=== PATIENT | female | born 1965 | race Caucasian/White ===

== ENCOUNTER 2023-08-13 17:56 | Emergency (ER) | payer MEDICAID, SELFPAY ==
[2023-08-13 18:00] VITALS: BP 199/89; PULSE 83; RESP 18; TEMP 37.1; O2SAT 98; BMI 39.1
[2023-08-13 18:07] VITALS: BP 170/78
--- NOTE | 2023-08-13 18:24 | ED_ITS ---
HPI - General Adult General Chief complaint: Upper Respiratory Infection Stated complaint: flu Time Seen by Provider: 08/13/23 18:19 Source: patient Mode of arrival: walk-in Limitations: no limitations History of Present Illness HPI narrative: Patient is a 58-year-old female who is presenting to the Emergency Room with chief complaint of 5 days of cough, congestion. Patient has taken no amwj-afn-unrcans medications in the past [address] Murillo's office, she was hoping that he called a antibiotic into the pharmacy for her. The nurse stated that he would call a prescription in for her. Patient went to the pharmacy, there is no medications at the pharmacy so she came to the Emergency Room hoping she will get prescriptions the help with her symptoms and a antibiotic. Patient was at a reunion last night. No recent traveling. No chest pain, no shortness of breath, no other acute complaints. No nausea, vomiting, diarrhea, no bowel or bladder changes. . All systems are negative except as noted/marked. All systems reviewed and otherwise negative. . Nurses note and vital signs reviewed and patient is not hypoxic. General: The patient appears well and in no apparent distress. Patient is resting comfortably on cart. Patient is not toxic, lethargic, or listless Skin: Warm, dry, no pallor noted. There is no rash noted. No petechiae, purpura. Head: Normocephalic, atraumatic. No tenderness to palpation to bilateral frontal or maxillary sinus. Eye: Normal conjunctiva, no drainage, EOMI. PERRL Ears, Nose, Mouth, and Throat: oral mucosa is moist. Nares patent. Mouth without vesicles. Cardiovascular: Regular Rate and Rhythm, no murmur, gallop, rub Respiratory: Patient is in no distress, no accessory muscle use, lungs are clear to auscultation, no wheezing, rales or rhonchi Back: non-tender, GI: soft, no tenderness Musculoskeletal: Patient has full range of motion of all of the extremities, no motor, sensory, or focal neurological deficits Neurological: A&O x3, normal speech Psychiatric: Cooperative Related Data Home Medications Medication Instructions Recorded Confirmed lorazepam 0.5 mg tablet 0.5 mg PO Q12H PRN sleep 08/13/23 08/13/23 metoprolol tartrate 100 mg tablet 100 mg PO Q12H 08/13/23 08/13/23 quetiapine 50 mg tablet 50 mg PO .qhs 08/13/23 08/13/23 Allergies Allergy/AdvReac Type Severity Reaction Status Date / Time No Known Drug Allergies Allergy Verified 08/13/23 18:00 PFSH PFS Social History Smoking status: Former smoker Exam Constitutional Vital Signs, click to edit/add: Last Vital Signs Temp 98.8 F 08/13/23 18:00 Pulse 83 08/13/23 18:00 Resp 18 08/13/23 18:00 BP 170/78 H 08/13/23 18:07 Pulse Ox 98 08/13/23 18:00 Course Vital Signs Vital signs: Vital Signs Temperature 98.8 F 08/13/23 18:00 Pulse Rate 83 08/13/23 18:00 Respiratory Rate 18 08/13/23 18:00 Blood Pressure 199/89 H 08/13/23 18:00 Pulse Oximetry 98 08/13/23 18:00 Temperature 98.8 F 08/13/23 18:00 Pulse Rate 83 08/13/23 18:00 Respiratory Rate 18 08/13/23 18:00 Blood Pressure 170/78 H 08/13/23 18:07 Pulse Oximetry 98 08/13/23 18:00 Medical Decision Making MDM Narrative Medical decision making narrative: Patient was hoping for antibiotic prescription. Patient was educated that she needs to have symptoms for over 10-14 days before [place] guide and evidence based medicine recommend using antibiotics. Patient was told his multiple wbbo-vol-iezmrks prescription she can use to help with her symptoms a dry up her sinuses. Patient says that DayQuil and NyQuil make her jittery. Patient was told that she can use Claritin, Zyrtec during the day and Benadryl nighttime. Patient was educated using Flonase. Patient was told if she is not having any improvement in her symptoms with taking rrdc-dkf-ruiieej medication by next Wednesday, she can follow-up with her PCP for further recommendation of treatment. Patient has had symptoms for 5 days and has taken no kftd-lny-drmedhf medications to help any of her symptoms. Patient understands this, antibiotic education done at bedside, no questions at discharge. Discharge Plan Discharge Chief Complaint: Upper Respiratory Infection Clinical Impression: Upper respiratory infection, Sinusitis Patient Disposition: Home, Self-Care Condition: Fair Prescriptions / Home Meds: No Action metoprolol tartrate 100 mg tablet 100 mg PO Q12H quetiapine 50 mg tablet 50 mg PO .qhs lorazepam 0.5 mg tablet 0.5 mg PO Q12H PRN (Reason: sleep) Additional Instructions: Use vhwm-lkx-zxojvlf Claritin or Zyrtec in the morning, use Benadryl nighttime to help with sleeping and antihistamine use. Use Flonase nasal spray. Use pchr-pnm-phzxoxi cough and cold medications. Follow-up with PCP on Wednesday if any other questions or concerns. Standard of care/Recommended antibiotic therapy is treating symptoms for the 1st 10-14 days before antibiotics are indicated for bronchitis, upper respiratory infection, or sinusitis. Stand Alone Forms: Portal Instructions Referrals: Carlito Murillo MD [Primary Care Provider] - 1 week
== END 2023-08-13 18:31 | disposition home or self-care (01) ==
PROVIDERS: Emergency Provider Emergency Medicine; PCP Family Medicine
DX: J06.9 Acute upper respiratory infection, unspecified (principal); J32.9 Chronic sinusitis, unspecified; Z79.899 Other long term (current) drug therapy; Z87.891 Personal history of nicotine dependence
CPT/HCPCS: 99281

== ENCOUNTER 2023-09-30 11:24 | Outpatient (OUT) | payer MEDICAID, SELFPAY ==
[2023-09-30 11:48] LABS: Basophils Percent Auto 0.8 % (0.2-2.0); Eosinophils Absolute Auto 0.2 10^3/uL (0.0-0.7); Eosinophils Percent Auto 3.4 % (0.9-7.0); Hematocrit 40.4 % (36.0-48.0); Hemoglobin 13.1 g/dL (12.0-16.0); Immature Granulocytes Abs Auto 0.01 10^3/uL (0.00-0.03); Immature Granulocytes Pct Auto 0.2 % (0.0-0.5); Lymphocytes Absolute Auto 1.6 10^3/uL (1.2-3.8); Lymphocytes Percent Auto 31.1 % (20.5-60.0); Mean Corpuscular HGB Conc 32.4 g/dL (29.9-35.2); Mean Corpuscular Hemoglobin 27.6 pg (26.7-34.0); Mean Corpuscular Volume 85.2 fL (81.0-99.0); Mean Platelet Volume 10.3 fL (9.5-13.5); Monocytes Absolute Auto 0.3 10^3/uL (0.3-0.8); Monocytes Percent Auto 6.3 % (1.7-12.0); Neutrophils Absolute Auto 3.1 10^3/uL (1.4-6.5); Neutrophils Percent Auto 58.2 % (43.0-75.0); Platelet Count 226 10^3/uL (150-450); Red Blood Count 4.74 10^6/uL (4.20-5.40); White Blood Count 5.2 10^3/uL (4.0-11.0)
[2023-09-30 12:26] LABS: Estimated Average Glucose 137 mg/dL; Glycohemoglobin A1C 6.4 % (4.5-6.2)
[2023-09-30 12:45] LABS: Alanine Aminotransferase 63 U/L (14-59); Albumin Level 3.5 g/dL (3.4-5.0); Alkaline Phosphatase 86 U/L (46-116); Anion Gap 15.4; Aspartate Amino Transferase 30 U/L (15-37); Bilirubin Total 0.4 mg/dL (0.2-1.0); Calcium 8.4 mg/dL (8.5-10.1); Carbon Dioxide 25.9 mmol/L (21.0-32.0); Chloride 104 mmol/L (98-107); Chol HDL Ratio 4.1; Cholesterol 177 mg/dL (<=200); Estimated GFR (African America >60 (>=60); Estimated GFR (Non-African Ame 51 (>=60); Free T3 2.69 pg/mL (2.18-3.98); Globulin 3.6 g/dL; Glucose 132 mg/dL (74-106); HDL Cholesterol 43 mg/dL (40-60); LDL Cholesterol Calculated 124.2 mg/dL; Potassium 3.3 mmol/L (3.5-5.1); Sodium 142 mmol/L (136-145); Thyroid Stimulating Hormone 2.185 uIU/mL (0.358-3.740); Total Protein 7.1 g/dL (6.4-8.2); Triglycerides 49 mg/dL (<=150); VLDL CHOLESTEROL 9.8 mg/dL
[2023-10-01 10:12] LABS: Insulin 30.1 uIU/mL (2.6-24.9)
== END 2023-09-30 11:25 | disposition home or self-care (01) ==
LOC: LAB 11:26
PROVIDERS: PCP Family Medicine; Visit Provider Family Medicine
DX: Z00.00 Encounter for general adult medical examination without abnormal findings (principal)
CPT/HCPCS: 36415; 80053; 80061; 83036; 83525; 84436; 84443; 84481; 85025

== ENCOUNTER 2024-04-21 18:49 | Inpatient (IN) | payer MEDICAID, SELFPAY ==
[2024-04-21] VITALS (39 sets, daily range): BP systolic 175–234; BP diastolic 70–109; PULSE 51–90; TEMP 36.5–36.9; O2SAT 96–98; BMI 38.1
--- OUTSIDE RECORDS SUMMARY | 2024-04-21 19:16 | XMS_ITS | CCD ---
Author Organization [facility] Care Team Providers Care Environmental Director Name Role Phone Kendra Murillo Primary Care Physician Umm MARTÍNEZ Attending Unavailable NILL, Umm Michael Attending Unavailable MARKER ., DR DEVINE Attending Unavailable MARKER ., DR DEVINE Consulting Unavailable MARKER ., DR DEVINE Admitting Unavailable HOY ., DR GARDNER Primary Care Unavailable YANDELUMM Consulting Unavailable NILL ., DR SALOMON Admitting Unavailable HOY ., DR GARDNER Primary Care Unavailable NILL ., DR SALOMON Attending Unavailable NILL ., DR SALOMON Consulting Unavailable NILL ., DR SALOMON Admitting Unavailable HOY ., DR GARDNER Primary Care Unavailable NILL ., DR SALOMON Attending Unavailable NILL ., DR SALOMON Consulting Unavailable DIPTI, GUILLE Consulting Unavailable MICHAEL II, BASILIA Consulting Unavailable HOY ., DR GARDNER Admitting Unavailable HOY ., DR GARDNER Attending Unavailable HOY ., DR GARDNER Primary Care Unavailable HOY ., DR GARDNER Admitting Unavailable HOY ., DR GARDNER Attending Unavailable HOY ., DR GARDNER Consulting Unavailable HOY ., DR GARDNER Primary Care Unavailable HOY ., DR GARDNER Admitting Unavailable HOY ., DR GARDNER Attending Unavailable HOY ., DR GARDNER Consulting Unavailable HOY ., DR GARDNER Primary Care Unavailable HOY ., DR GARDNER Admitting Unavailable HOY ., DR GARDNER Attending Unavailable HOY ., DR GARDNER Consulting Unavailable HOY ., DR GARDNER Primary Care Unavailable SWITCHBACK, DR ADEILA Medrano Consulting Unavailable Allergies Allergy Classification Reported Allergen(s) Allergy Type Date of Onset Reaction(s) Facility (1 source) No Known Medication Allergies; 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: [No Known Medication Allergies] Propensity to adverse reactions (disorder) [facility] Medications Current Medications Medication Drug Class(es) Dates Sig (Normalized) Sig (Original) amitriptyline hydrochloride 100 mg oral tablet (2 sources) Tricyclic Antidepressant Start: 09-30-2022 take 1 tablet by mouth once daily at bedtime amitriptyline 100 mg oral tablet 100 mg = 1 tab(s), Oral, Once a day (at bedtime), Refills(s) 0 Start Date: 09/30/22 Status: Ordered aspirin 325 mg delayed release oral tablet (2 sources) Platelet Aggregation Inhibitor, Nonsteroidal Anti-inflammatory Drug Start: 09-30-2022 take 1 tablet by mouth once daily aspirin 325 mg Oral EC Tab 325 mg = 1 tab(s), Oral, Daily, Refills(s) 0 Start Date: 09/30/22 Status: Ordered atorvastatin 40 mg oral tablet (2 sources) HMG-CoA Reductase Inhibitor Start: 10-06-2022 take 1 tablet by mouth once daily atorvastatin 40 mg Tab 40 mg = 1 tab(s), Oral, Daily, Refills(s) 0 Start Date: 10/06/22 Status: Ordered furosemide 20 mg oral tablet (2 sources) Loop Diuretic Start: 10-06-2022 take 1 tablet by mouth once daily furosemide 20 mg Tab 20 mg = 1 tab(s), Oral, Daily, Refills(s) 0 Start Date: 10/06/22 Status: Ordered hydrOXYzine hydrochloride 25 mg oral tablet (2 sources) Antihistamine Start: 09-30-2022 take 1 tablet by mouth four times daily hydrOXYzine hydrochloride 25 mg Tab 25 mg = 1 tab(s), Oral, QID, Refills(s) 0 Start Date: 09/30/22 Status: Ordered metoprolol tartrate 100 mg oral tablet (2 sources) beta-Adrenergic Tammie Start: 08-02-2019 take 1 mg by mouth twice daily Lopressor 100 mg Tab mg tab(s), Oral, BID, Refills(s) 0 Start Date: 08/02/19 Status: Ordered Problems Active Problems Problem Classification Problem Date Documented Da te Episodic/Chronic Anxiety disorders (7 sources) Anxiety; 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: [Panic disorder] Onset: 09-28-2022 08-02-2019 Chronic Complication of device; implant or graft (2 sources) Retained ureteric stent 08-29-2019 Episodic Coronary atherosclerosis and other heart disease (3 sources) Coronary arteriosclerosis; 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: [Atherosclerotic heart disease of [place] coronary artery without angina pectoris] Onset: 11-26-2022 09-30-2022 Chronic Disorders of lipid metabolism (1 source) Hyperlipidemia, unspecified; 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: [HYPERLIPIDEMIA UNSPECIFIED] Onset: 11-26-2022 Chronic Essential hypertension (3 sources) Hypertensive disorder; 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: [Essential (primary) hypertension] Onset: 11-26-2022 08-02-2019 Chronic Genitourinary symptoms and ill-defined conditions (6 sources) Increased frequency of urination; 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: [Nocturia] 08-02-2019 Episodic Headache; including migraine (2 sources) Migraine 08-02-2019 Chronic Heart valve disorders (2 sources) Heart murmur 10-30-2020 Episodic Hemorrhoids (2 sources) Hemorrhoids 08-02-2019 Episodic Inflammation; infection of eye (except that caused by tuberculosis or sexually transmitteddisease) (2 sources) Allergic conjunctivitis 09-30-2022 Episodic Mood disorders (2 sources) Depressive disorder 09-30-2022 Chronic Neoplasms of unspecified nature or uncertain behavior (2 sources) Neoplasm of uncertain behavior of skin of chest 07-02-2021 Episodic Other and ill-defined heart disease (2 sources) Left ventricular hypertrophy 09-30-2022 Chronic Other diseases of kidney and ureters (2 sources) Hydronephrosis 08-02-2019 Episodic Other gastrointestinal disorders (2 sources) Adrenal mass 12-20-2019 Episodic Other nervous system disorders (2 sources) Paresthesia 08-02-2019 Episodic Other nutritional; endocrine; and metabolic disorders (2 sources) Body mass index 30+ - obesity 07-02-2021 Chronic Other skin disorders (2 sources) Inflamed seborrheic keratosis 10-31-2020 Episodic Residual codes; unclassified (2 sources) Obstructive sleep apnea syndrome 10-30-2020 Chronic Residual codes; unclassified (1 source) Obstructive sleep apnea (adult) (pediatric); 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: [OBSTRUCTIVE SLEEP APNEA] Onset: 11-26-2022 Chronic Substance-related disorders (2 sources) Nicotine dependence 12-20-2019 Chronic Transient cerebral ischemia (2 sources) Transient cerebral ischemia 10-30-2020 Chronic Unclassified (2 sources) Injury of left ureter 12-20-2019 Unclassified (1 source) CONTACT W/AND (SUSP) EXPOS COVID-19; 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: [CONTACT W/AND (SUSP) EXPOS COVID-19] Onset: 11-26-2022 Past or Other Problems Problem Classification Problem Date Documented Da te Episodic/Chronic Calculus of urinary tract (5 sources) History of calculus of kidney; 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: [Kidney stone] Onset: 11-26-2022 12-20-2019 Episodic Other aftercare (1 source) nursing home (current) use of aspirin; 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: [ALF CURRENT USE OF ASPIRIN] Onset: 11-26-2022 Episodic Other aftercare (1 source) Other retirement (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 therapy; 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: [OTH ALF CURRENT DRUG THERAPY] Onset: 11-26-2022 Episodic Other circulatory disease (1 source) Personal history of transient ischemic attack (TIA), and cerebral infarction without residual deficits; 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: [PERS HX TIA AND CI NO RESID DEFICIT] Onset: 11-26-2022 Episodic Other connective tissue disease (3 sources) Other specified soft tissue disorders; 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: [OTHER SPEC SOFT TISSUE DISORDERS] Onset: 09-24-2022 Episodic Other screening for suspected conditions (not mental disorders or infectious disease) (4 sources) Encounter for screening for malignant neoplasm of colon; 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: [ENC SCREEN MALIG NEOPLASM COLON] Onset: 11-25-2022 Episodic Other skin disorders (1 source) Other seborrheic keratosis; 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: [OTHER SEBORRHEIC KERATOSIS] Onset: 11-26-2022 Episodic Residual codes; unclassified (1 source) Acquired absence of other specified parts of digestive tract; 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: [ACQ ABSENCE OTH PART DIGESTV TRACT] Onset: 11-26-2022 Episodic Residual codes; unclassified (1 source) Acquired absence of both cervix and uterus; 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: [ACQUIRED ABSENCE BOTH CERVIX AND UTERUS] Onset: 11-26-2022 Episodic Residual codes; unclassified (1 source) Family history of malignant neoplasm of digestive organs; 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: [FAM HX MALIG NEOPLASM DIGESTIV ORGN] Onset: 11-26-2022 Episodic Residual codes; unclassified (4 sources) Localized edema; 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: [LOCALIZED EDEMA] Onset: 10-02-2022 Episodic Residual codes; unclassified (1 source) Edema, unspecified; 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: [EDEMA UNSPECIFIED] Onset: 09-28-2022 Episodic Screening and history of mental health and substance abuse codes (1 source) Personal history of nicotine dependence; 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: [PERSONAL HISTORY OF NICOTINE DEPEND] Onset: 11-26-2022 Episodic Unclassified (2 sources) Drug therapy finding 09-30-2022 Results Test Name Value Interpretation Reference Range Facility Outside Colonoscopyon 2022 Outside Colonoscopy [id number] .00CD:127 Normal [facility] Reminderson 11-27-2022 Reminders - From: Na Hayes LPN To: N - Clinical; Sent: 11/27/2022 12:46:10 EST Show up: 10/25/2032 07:00:00 EST Subject: colonoscopy recall Due Date/Time: 11/25/2032 07:00:00 EST Reminder/Recall Patient is due for screening colonoscopy 11/25/2032. Normal [facility] Lab Reportson 11-24-2022 Lab Reports [id number] .00CD:127 Normal [facility] Covid-19 PCR ([facility])on 10-24 SARS-CoV-2 (COVID-19) RNA BECK+probe Ql (Unsp spec) Not detected Normal NOT DETECTED [facility] Comment on above: Result Comment: This test is not yet approved or cleared by the [place] FDA. When there are no FDA-approved or cleared tests available, and other criteria are met, FDA can make tests available under an emergency access mechanism called an Emergency Use Authorization (EUA). The EUA for this test is supported by the Oler[employer]urist of Health and Human Service's (HHS's) declaration that circumstances exist to justify the emergency use of in vitro diagnostics for the detection and/or diagnosis of the virus that causes COVID-19. This EUA will remain in effect (meaning this test can be used) for the duration of the COVID-19 declaration justifying emergency of IVDs, unless it is terminated or revoked by FDA (after which the test may no longer be used). When diagnostic testing is negative, the possibility of a false negative should be considered in the context of a patient's recent exposures and the presence of clinical signs and symptoms consistent with SARS-CoV-2. Performed By: #### [facility] [place] #### [facility] [address] [address] [address] Rich Cutler Consent for Procedure/Surger yon 10-07-2022 Consent for Procedure/Surgery [id number] .00CD:127 Normal [facility] Ambulatory Visit Summaryon 1 12-06-2021 Ambulatory Visit Summary MILAN RASMUSSEN :1965 Visit Date:10/06/2022 Ambulatory Visit Instructions Your Care Team Attending Physician - DIPESH BUCKNER, Umm Michael Primary Care Physician - Lidia BUCKNER, Kendra This Is Your Medications List Contact prescribing physician if questions or concerns amitriptyline (amitriptyline 100 mg oral tablet) aspirin (aspirin 325 mg Oral EC Tab) atorvastatin (atorvastatin 40 mg Tab) furosemide (furosemide 20 mg Tab) hydrOXYzine (hydrOXYzine hydrochloride 25 mg Tab) metoprolol (Lopressor 100 mg Tab) Procedures Performed Cystoscopic removal of ureteric stent (08/29/2019), Bilateral tubal ligation, Catheterization of left heart, Cholecystectomy, Cystoscopic insertion of ureteric stent, Dilatation and curettage, Vaginal hysterectomy. Discharge Vitals Heart Rate (Peripheral) 72 Respiratory Rate 16 Blood Pressure 126/86 Height 157.4 cm Height 62 in Weight 98 kg Weight 215.6 lb BMI 39.56 Medications What How Much When Instructions Unchanged amitriptyline (amitriptyline 100 mg oral tablet) 1 Tablets By Mouth Once a day (at bedtime) Contact prescribing physician if questions or concerns Unchanged aspirin (aspirin 325 mg Oral EC Tab) 1 Tablets By Mouth Every day Contact prescribing physician if questions or concerns Unchanged atorvastatin (atorvastatin 40 mg Tab) 1 Tablets By Mouth Every day Contact prescribing physician if questions or concerns Unchanged furosemide (furosemide 20 mg Tab) 1 Tablets By Mouth Every day Contact prescribing physician if questions or concerns Unchanged hydrOXYzine (hydrOXYzine hydrochloride 25 mg Tab) 1 Tablets By Mouth 4 times a day Contact prescribing physician if questions or concerns Unchanged metoprolol (Lopressor 100 mg Tab) By Mouth 2 times a day Contact prescribing physician if questions or concerns Allergies No Known Allergies No Known Medication Allergies Problems Ongoing - Any problem that you are currently receiving treatment for. Adrenal mass Anxiety BMI 33.0-33.9,adult CAD (coronary artery disease) Depression Hemorrhoids History of kidney stones Hydronephrosis with obstructing calculus Hypertension Inflamed seborrheic keratosis Left ureteral injury LVH (left ventricular hypertrophy) Migraine Murmur Neoplasm of uncertain behavior of skin of chest Nocturia SURESH (obstructive sleep apnea) Panic disorder Paresthesia Retained ureteral stent Smoker TIA (transient ischemic attack) Urinary frequency Urinary urgency Historical - Any problem that you are no longer receiving treatment for. Allergic conjunctivitis Anticoagulated Kidney stones Normal [facility] VC VENOUS REFLUX NINO LMTon 1 12-02-2021 VC VENOUS REFLUX NINO LMT Patient: MILAN RASMUSSEN Exam Date: 10/02/2022 : 1965 Gender:F Ordering : DR KENDRA MURILLO . Admission #: [id number] Family : Order #: [id number] CLICK HERE TO VIEW EXAM RADIOLOGY REPORT PROCEDURE: VEIN CENTER ULTRASOUND VENOUS REFLUX BILATERAL LIMTED COMPARISON: None. INDICATIONS: Localized edema TECHNIQUE: Duplex imaging of the lower extremity to assess the deep and superficial venous system for the presence of deep or superficial venous incompetence and to document the location and severity of disease. The study includes evaluation of the great saphenous vein (GSV), anterior accessory saphenous vein (AASV) and small saphenous vein (SSV). Patient scanned in reverse Trendelenburg and standing. FINDINGS: RIGHT LOWER EXTREMITY: Saphenofemoral Junction Reflux: Yes 11.4mm 0.6 sec GSV: Diam (mm) Reflux/ Time (sec) Proximal Thigh 8.2 Yes 0.3 Mid Thigh 5.6 Yes 1.0 Distal Thigh 5.6 Yes 1.3 Prox Calf 3.8 Yes 0.5 Mid Calf 3.2 No Saphenopopliteal Junction Reflux: 4.9mm No SSV: Proximal Calf 3.5 No Mid Calf N/A AASV: Proximal Thigh 5.0 No Mid Thigh 2.9 No Distal Thigh Thrombi: No acute or chronic thrombus visualized Compressibility: Normal Flow: Normal Preforator: Dist/med calf 4.6mm with 0s reflux. Tech Note: Incompetent SFJ and GSV. Patent varicose vein mid/med calf 3.7mm with 0.5s reflux. Patent varicose vein prox/post calf 2.2mm with 0s reflux. LEFT LOWER EXTREMITY: Saphenofemoral Junction Reflux: Yes 10.5 mm 1.4 sec GSV: Diam (mm) Reflux/Time (sec) Proximal Thigh 6.3 Yes 0.7 Mid Thigh 5.2 Yes 2.0 Distal Thigh 5.6 Yes 1.0 Prox Calf 4.7 No Mid Calf 3.0 No Saphenopopliteal Junction Relux: 5.7 mm Yes 1.3 SSV: Proximal Calf 4.4 No Mid Calf 3.4 No AASV: Proximal Thigh 4.6 Yes 0.6 Mid Thigh 4.1 Yes 0.8 Distal Thigh Thrombi: No acute or chronic thrombus visualized Compressibility: Normal Flow: Normal Shirt Marker: Dist/med calf 3.3mm with 0s reflux. Tech Note: Incompetent SFJ and GSV. Patent varicose vein mid/med calf 2.9mm with 0s reflux. Patent varicose vein prox/post calf 3.8mm with 0s reflux. Patent varicose vein dist/med thigh 3.8mm with 2.0s reflux. CONCLUSION: 1. Mild right and [id number] left great saphenous vein venous insufficiency with dilatation 2. Left saphenous popliteal junction reflux 3. Mild left anterior accessory saphenous vein venous insufficiency without dilatation 4. Small bilateral incompetent varicose veins Dictated by: Adelia Lezama MD on 10/02/2022 at 13:36 Approved by: Adelia Lezama MD on 10/02/2022 at 13:52 Normal [facility] ECHOCARDIO M/2D COMPLETEon 1 11-30-2021 ECHOCARDIO M/2D COMPLETE Patient: MILAN RASMUSSEN Exam Date: 09/30/2022 : 1965 Gender:F Ordering : DR KENDRA MURILLO . Admission #: [id number] Family : Order #: [id number] CLICK HERE TO VIEW EXAM ECHOCARDIOGRAM REPORT PROCEDURE: CARDIO PULMONARY ECHOCARDIO M/2D COMP INDICATIONS: Edema. hypertension, former smoker COMPARISON: None. DESCRIPTION: COMPLETE ECHOCARDIOGRAM Real-time transthoracic echocardiography with 2D, M-mode, spectral and color flow Doppler performed. QUALITY: Technical quality was adequate. 63 215# BP 194/82 Recommend imaging agent for better visualization of left ventricle. LEFT VENTRICLE: Normal chamber size. Global left ventricular systolic function is normal. Moderate left ventricular hypertrophy with severe proximal septal thickness (1.8 cm). No regional wall motion abnormalities. Mild ventricular outflow obstruction with a maximum gradient of 23 mmHg. LV EF: Hyperdynamic left ventricular ejection fraction, (70-75%). DIASTOLIC: Grade I diastolic dysfunction. ATRIAL SEPTUM: LEFT ATRIUM: Normal chamber size. RIGHT ATRIUM: Mild dilatation. RIGHT VENTRICLE: Normal chamber size. Normal right ventricular systolic function. TRICUSPID VALVE: Normal mobility and thickness. No stenosis with trivial regurgitation. Doppler studies reveal mildly (35-45) elevated right sided pressures. RVSP is 43 mmHg MITRAL VALVE: Normal mobility and thickness. No evidence of mitral valve stenosis. There is no mitral annular calcification. Mild mitral regurgitation. AORTIC VALVE: Normal trileaflet appearance. No visible sclerosis. Normal leaflet mobility. No evidence of aortic valve stenosis. No aortic regurgitation. AORTIC ROOT: Normal diameter and appearance. PULMONIC VALVE: Normal thickness and mobility. No stenosis. Trivial regurgitation. PERICARDIUM: No evidence of pericardial effusion. IVC: Collapses with inspirations. PLEURA: CONCLUSION: 1. Left ventricular hypertrophy with increased upper septal thickness measuring up to 1.8 cm. 2. Hyperdynamic left ventricular systolic function with an ejection fraction of 70 to 75%. There appears to be evidence of dynamic outflow tract obstruction with a late peaking gradient of 23 mmHg with Valsalva maneuver. 3. Normal right ventricular size and systolic function. 4. Mild diastolic dysfunction. 5. Mild mitral regurgitation. 6. Mildly elevated right-sided pressures. 7. The phenotype is suggestive of possible hypertrophic cardiomyopathy. 8. Technically limited study with poor sound transmission. Additional cardiac imaging such as cardiac MRI is recommended for further characterization. Adult Echocardiography Procedure Report Left Ventricle LVEDD (3.7 - 5.6 cm): 4.03 cm LVESD (2.2 - 4.0 cm): 2.62 cm LVIVS thickness (0.6 - 1.2 cm): 1.80 cm LVPW thickness (0.5 - 1.0 cm): 1.27 cm e': 0.05 m/s E - e': 9.56 LVOT Diameter 2.00 cm Left Ventricular Ejection Fraction: 70-75 % Left Atrium LA Volume Index (2D A2C): 58.19 ml, 58.19 ml Left Atrium Systolic Dimension: 4.38 cm Mitral Valve MV E to A Ratio: 0.79 Mitral Valve A-Wave Peak Velocity: 0.62 m/s Mitral Valve E-Wave Peak Velocity: 0.49 m/s Right Ventricle Aorta AO Root Diam: 3.54 cm Aortic Valve Peak Velocity(Antegrade Flow): 1.46 m/s Peak Gradient(Antegrade Flow): 8.58 mm[Hg] Tricuspid Valve Peak Velocity (Regurgitant Flow): 2.59 m/s, 3.17 m/s Peak Velocity: 0.49 m/s Pulmonic Valve Peak Velocity: 1.09 m/s, 1.05 m/s Peak Gradient: 4.71 mm[Hg], 4.38 mm[Hg] Right Atrium Right Atrium Systolic Pressure: 37.76 ml, 15.88 ml, 59.64 ml Dictated by: Rafa Spence M.D. on 09/30/2022 at 18:28 Approved by: Rafa Spence M.D. on 09/30/2022 at 18:37 Normal [facility] BNPon 09-24-2022 Natriuretic peptide B (Bld) [Mass/Vol] 501.0 pg/mL Normal <=900.0 [facility] Comment on above: Performed By: #### C VDTB #### [facility] [address] [place] [address] Dr. Rich Cutler CBC AUTO DIFFon 09-24-2022 BASO # 0.1 103/ul Normal 0.0-0.1 [facility] Comment on above: Performed By: #### C [facility] #### [facility] [address] [place] [address] Dr. Rich Cutler Basophils/100 WBC (Bld) 0.8 % Normal 0.2-2.0 [facility] Comment on above: Performed By: #### C [facility] #### [facility] [address] [place] [address] Dr. Rich Cutler EO # 0.3 103/ul Normal 0.0-0.7 [facility] Comment on above: Performed By: #### C [facility] #### [facility] [address] [place] [address] Dr. Rich Cutler Eosinophils/100 WBC (Bld) 3.4 % Normal 0.9-7.0 [facility] Comment on above: Performed By: #### C [facility] #### [facility] [address] [place] [address] Dr. Rich Cutler Erythrocyte distribution width (RBC) [Ratio] 13.3 % Normal 11.0-15.0 [facility] Comment on above: Performed By: #### C [facility] #### [facility] [address] [place] [address] Dr. Rich Cutler Hematocrit (Bld) [Volume fraction] 40.5 % Normal 36.0-48.0 [facility] Comment on above: Performed By: #### C [facility] #### [facility] [address] [place] [address] Dr. Rich Cutler Hemoglobin (Bld) [Mass/Vol] 13.1 g/dL Normal 12.0-16.0 [facility] Comment on above: Performed By: #### C [facility] #### [facility] [address] [place] [address] Dr. Rich Cutler IG # 0.02 10e3/ul Normal 0.00-0.03 [facility] Comment on above: Performed By: #### C [facility]DT[facility] #### [facility] [address] [place] [address] Dr. Rich Cutler IG % 0.3 % Normal 0.0-0.5 [facility] Comment on above: Performed By: #### C VDT[facility] #### [facility] [address] [place] [address] Dr. Rich Cutler LYMPH # 2.7 103/ul Normal 1.2-3.8 [facility] Comment on above: Performed By: #### C [facility] #### [facility] [address] [place] [address] Dr. Rich Cutler Lymphocytes/100 WBC (Bld) 35.4 % Normal 20.5-60.0 [facility] Comment on above: Performed By: #### C VDT[facility] #### [facility] [address] [place] [address] Dr. Rich Cutler MANUAL DIFF REQ NO Normal [facility] Comment on above: Performed By: #### C VDT[facility] #### [facility] [address] [place] [address] Dr. Rich Cutler MCH (RBC) [Entitic mass] 28.2 pg Normal 26.7-34.0 [facility] Comment on above: Performed By: #### C [facility]DT[facility] #### [facility] [address] [place] [address] Dr. Rich Cutler MCHC (RBC) [Mass/Vol] 32.3 g/dL Normal 29.9-35.2 [facility] Comment on above: Performed By: #### C [facility] #### [facility] [address] [place] [address] Dr. Rich Cutler MCV (RBC) [Entitic vol] 87.3 fL Normal 81.0-99.0 [facility] Comment on above: Performed By: #### C [facility] #### [facility] [address] [place] [address] Dr. Rich Cutler MONO # 0.5 103/ul Normal 0.3-0.8 [facility] Comment on above: Performed By: #### C [facility] #### [facility] [address] [place] [address] Dr. Rich Cutler Monocytes/100 WBC (Bld) 6.5 % Normal 1.7-12.0 [facility] Comment on above: Performed By: #### C [facility] #### [facility] [address] [place] [address] Dr. Rich Cutler NEUT # 4.1 103/ul Normal 1.4-6.5 [facility] Comment on above: Performed By: #### C [facility] #### [facility] [address] [place] [address] Dr. Rich Cutler Neutrophils/100 WBC (Bld) 53.6 % Normal 43.0-75.0 [facility] Comment on above: Performed By: #### C V[facility] #### [facility] [address] [place] [address] Dr. Rich Cutler Platelet mean volume (Bld) [Entitic vol] 10.3 fL Normal 9.5-13.5 [facility] Comment on above: Performed By: #### C VDT[facility] #### [facility] [address] [place] [address] Dr. Rich Cutler PLT 283 103/ul Normal 150-450 [facility] Comment on above: Performed By: #### C VDTBH #### [facility] [address] [place] [address] Dr. Rich Cutler RBC 4.64 106/ul Normal 4.20-5.40 [facility] Comment on above: Performed By: #### C VDTBH #### [facility] [address] [place] [address] Dr. Rich Cutler WBC 7.6 103/ul Normal 4.0-11.0 [facility] Comment on above: Performed By: #### C VDTBH #### [facility] [address] [place] [address] Dr. Rich Cutler INSULINon 09-24-2022 Insulin 15.1 uIU/mL Normal 2.6-24.9 [facility] Comment on above: Performed By: #### C VDTBH #### [facility] [address] [place] [address] Dr. Rich Cutler PROF 14(COMP METB)on 022 Albumin [Mass/Vol] 3.5 g/dL Normal 3.4-5.0 [facility] Comment on above: Performed By: #### C VDTBH #### [facility] [address] [place] [address] Dr. Rich Cutler Albumin/Globulin [Mass ratio] 1.0 {ratio} Normal [facility] Comment on above: Performed By: #### C VDTBH #### [facility] [address] [place] [address] Dr. Rich Cutler ALP [Catalytic activity/Vol] 91 U/L Normal 46-116 [facility] Comment on above: Performed By: #### C VDTBH #### [facility] [address] [place] [address] Dr. Rich Cutler ALT [Catalytic activity/Vol] 47 U/L Normal 14-59 [facility] Comment on above: Performed By: #### C VDTBH #### [facility] [address] [place] [address] Dr. Rich Cutler Anion gap [Moles/Vol] 11.7 mmol/L Normal [facility] Comment on above: Performed By: #### C VDTBH #### [facility] [address] [place] [address] Dr. Rich Cutler AST [Catalytic activity/Vol] 24 U/L Normal 15-37 [facility] Comment on above: Performed By: #### C VDTBH #### [facility] [address] [place] [address] Dr. Rich Cutler Bilirubin [Mass/Vol] 0.2 mg/dL Normal 0.2-1.0 [facility] Comment on above: Performed By: #### C VDTBH #### [facility] [address] [place] [address] Dr. Rich Cutler Calcium [Mass/Vol] 8.9 mg/dL Normal 8.5-10.1 [facility] Comment on above: Performed By: #### C VDTBH #### [facility] [address] [place] [address] Dr. Rich Cutler Chloride [Moles/Vol] 105 mmol/L Normal 98-107 [facility] Comment on above: Performed By: #### C VDTBH #### [facility] [address] [place] [address] Dr. Rich Cutler CO2 [Moles/Vol] 28.1 mmol/L Normal 21.0-32.0 [facility] Comment on above: Performed By: #### C VDTBH #### [facility] [address] [place] [address] Dr. Rich Cutler Creatinine [Mass/Vol] 1.13 mg/dL Critically high 0.55-1.02 [facility] Comment on above: Performed By: #### C VDTBH #### [facility] [address] [place] [address] Dr. Rich Cutler EGFR-AF MALDIVIAN 60 mL/min/1.73m2 Normal >=60 [facility] Comment on above: Performed By: #### C VDTBH #### [facility] [address] [address] [address] Rich Cutler EGFR-NON AF MALDIVIAN 49 mL/min/1.73m2 Critically low >=60 [facility] Comment on above: Performed By: #### C VDTBH #### [facility] [address] [address] [address] Rich Cutler Globulin (S) [Mass/Vol] 3.5 g/dL Normal [facility] Comment on above: Performed By: #### C VDTBH #### [facility] [address] [place] [address] Dr. Rich Cutler Glucose [Mass/Vol] 119 mg/dL Critically high 74-106 [facility] Comment on above: Performed By: #### C VDTBH #### [facility] [address] [address] [address] Rich Cutler Potassium [Moles/Vol] 3.8 mmol/L Normal 3.5-5.1 [facility] Comment on above: Performed By: #### C VDTBH #### [facility] [address] [place] [address] Dr. Rich Cutler Protein [Mass/Vol] 7.0 g/dL Normal 6.4-8.2 [facility] Comment on above: Performed By: #### C VDTBH #### [facility] [address] [place] [address] Dr. Rich Cutler Sodium [Moles/Vol] 141 mmol/L Normal 136-145 [facility] Comment on above: Performed By: #### C VDTBH #### [facility] [address] [place] [address] Dr. Rich Cutler Urea nitrogen [Mass/Vol] 16.0 mg/dL Normal 7.0-18.0 [facility] Comment on above: Performed By: #### C VDTBH #### [facility] [address] [place] [address] Dr. Rich Cutler Urea nitrogen/Creatinine [Mass ratio] 14.2 mg/mg Normal [facility] Comment on above: Performed By: #### C VDTBH #### [facility] [address] [place] [address] Dr. Rich Cutler TROPONIN, HIGH SENSITIVITYon 09-24-2022 HSTROP 10.6 pg/mL Normal 4.0-51.3 [facility] Comment on above: Result Comment: CUT- OFF POINTS HAVE BEEN ESTABLISHED BASED ON THE FOURTH UNIVERSAL DEFINITIONS OF MYOCARDIAL INFARCTION. THE UPPER REFERENCE LIMIT (URL) OF TROPONIN, DEFINED THE 99TH PERCENTILE OF cTnI DISTRIBUTION IN A REFERENCE POPULATION, HAS BEEN CONFIRMED THE DECISION THRESHOLD FOR LA DIAGNOSIS. Performed By: #### C VDTBH #### [facility] [address] [place] [address] Dr. Rich Cutler XR CHEST 1 Von 09-24-2022 XR CHEST 1 V EXAM: XR CHEST 1 V HISTORY: SHORTNESS OF BREATH COMPARISON: 11/05/2021 TECHNIQUE: Chest single view. FINDINGS: Lines/tubes/devices: None. Cardiomediastinum: Cardiac silhouette appears normal in size. Atherosclerotic calcifications of the aorta. Unremarkable mediastinal silhouette. Vasculature: No increased pulmonary vasculature. Lungs/pleura: No consolidation, sizeable effusion, or visible pneumothorax. Bones/soft tissues: Bony thorax appears grossly intact as seen. IMPRESSION: No acute findings, or significant interval change. Electronically authenticated by: [facility] Date: 2022-09-24 04:08 Normal [facility] CBC AUTO DIFFon 09-23-2022 BASO # 0.1 103/ul Normal 0.0-0.1 [facility] Comment on above: Performed By: #### C BC #### [facility] [address] [place] [address] Dr. Rich Cutler Basophils/100 WBC (Bld) 0.8 % Normal 0.2-2.0 [facility] Comment on above: Performed By: #### C BC #### [facility] [address] [place] [address] Dr. Rich Cutler EO # 0.2 103/ul Normal 0.0-0.7 [facility] Comment on above: Performed By: #### C BC #### [facility] [address] [place] [address] Dr. Rich Cutler Eosinophils/100 WBC (Bld) 3.5 % Normal 0.9-7.0 [facility] Comment on above: Performed By: #### C BC #### [facility] [address] [place] [address] Dr. Rich Cutler Erythrocyte distribution width (RBC) [Ratio] 13.4 % Normal 11.0-15.0 [facility] Comment on above: Performed By: #### C BC #### [facility] [address] [place] [address] Dr. Rich Cutler Hematocrit (Bld) [Volume fraction] 42.3 % Normal 36.0-48.0 [facility] Comment on above: Performed By: #### C BC #### [facility] [address] [place] [address] Dr. Rich Cutler Hemoglobin (Bld) [Mass/Vol] 13.4 g/dL Normal 12.0-16.0 [facility] Comment on above: Performed By: #### C BC #### [facility] [address] [place] [address] Dr. Rich Cutler IG # 0.03 10e3/ul Normal 0.00-0.03 [facility] Comment on above: Performed By: #### C BC #### [facility] [address] [place] [address] Dr. Rich Cutler IG % 0.5 % Normal 0.0-0.5 [facility] Comment on above: Performed By: #### C BC #### [facility] [address] [place] [address] Dr. Rich Cutler LYMPH # 2.9 103/ul Normal 1.2-3.8 [facility] Comment on above: Performed By: #### C BC #### [facility] [address] [place] [address] Dr. Rich Cutler Lymphocytes/100 WBC (Bld) 44.0 % Normal 20.5-60.0 [facility] Comment on above: Performed By: #### C BC #### [facility] [address] [place] [address] Dr. Rich Cutler MANUAL DIFF REQ NO Normal [facility] Comment on above: Performed By: #### C BC #### [facility] [address] [place] [address] Dr. Rich Cutler MCH (RBC) [Entitic mass] 28.4 pg Normal 26.7-34.0 [facility] Comment on above: Performed By: #### C BC #### [facility] [address] [place] [address] Dr. Rich Cutler MCHC (RBC) [Mass/Vol] 31.7 g/dL Normal 29.9-35.2 [facility] Comment on above: Performed By: #### C BC #### [facility] [address] [place] [address] Dr. Rich Cutler MCV (RBC) [Entitic vol] 89.6 fL Normal 81.0-99.0 [facility] Comment on above: Performed By: #### C BC #### [facility] [address] [place] [address] Dr. Rich Cutler MONO # 0.4 103/ul Normal 0.3-0.8 [facility] Comment on above: Performed By: #### C BC #### [facility] [address] [place] [address] Dr. Rich Cutler Monocytes/100 WBC (Bld) 6.6 % Normal 1.7-12.0 [facility] Comment on above: Performed By: #### C BC #### [facility] [address] [place] [address] Dr. Rich Cutler NEUT # 2.9 103/ul Normal 1.4-6.5 [facility] Comment on above: Performed By: #### C BC #### [facility] [address] [place] [address] Dr. Rich Cutler Neutrophils/100 WBC (Bld) 44.6 % Normal 43.0-75.0 [facility] Comment on above: Performed By: #### C BC #### [facility] [address] [address] [address] Rich Cutler Platelet mean volume (Bld) [Entitic vol] 11.0 fL Normal 9.5-13.5 [facility] Comment on above: Performed By: #### C BC #### [facility] [address] [address] [address] Rich Cutler PLT 272 103/ul Normal 150-450 [facility] Comment on above: Performed By: #### C BC #### [facility] [address] [address] [address] Rich Cutler RBC 4.72 106/ul Normal 4.20-5.40 [facility] Comment on above: Performed By: #### C BC #### [facility] [address] [place] [address] Dr. Rich Cutler WBC 6.5 103/ul Normal 4.0-11.0 [facility] Comment on above: Performed By: #### C BC #### [facility] [address] [address] [address] Rich Cutler FREE THYROXINE INDEX T7on FTI 2.16 Normal 1.30-4.50 [facility] Comment on above: Performed By: #### L IPID, TSH, T7, CMP #### [facility] [address] [place] [address] Dr. Rich Cutler T3U 30.0 % Normal 30.0-39.0 [facility] Comment on above: Performed By: #### L IPID, TSH, T7, CMP #### [facility] [address] [place] [address] Dr. Rich Cutler T4 [Mass/Vol] 7.20 ug/dL Normal 4.80-13.90 [facility] Comment on above: Performed By: #### L IPID, TSH, T7, CMP #### [facility] [address] [place] [address] Dr. Rich Cutler GLYCOHEMOGLOBIN A1Con 2021 ADA RECOMMENDATION SEE BELOW Normal [facility] Comment on above: Result Comment: ADA RECOMMENDED LIMIT 4.0 - 6.0 ADA THERAPEUTIC TARGET < 7.0 ACTION SUGGESTED > 7.0 Performed By: #### A 1C #### [facility] [address] [address] [address] Rich Cutler Glucose [Mass/Vol] 128 mg/dL Normal [facility] Comment on above: Performed By: #### A 1C #### [facility] [address] [address] [address] Rich Cutler HbA1c (Bld) [Mass fraction] 6.1 % Normal 4.5-6.2 [facility] Comment on above: Performed By: #### A 1C #### [facility] [address] [address] [address] Rich Cutler IRONon 09-23-2022 Iron [Mass/Vol] 64.0 ug/dL Normal 50.0-170.0 [facility] Comment on above: Performed By: #### C VDTB #### [facility] [address] [address] [address] Rich Cutler LIPID PROFILEon 09-23-2022 CHOL-HDL RATIO NORM SEE BELOW Normal [facility] Comment on above: Result Comment: 3.3 - 4.4 LOW RISK 4.4 - 7.1 AVERAGE RISK 7.1 - 11.0 MODERATE RISK >11.0 HIGH RISK Performed By: #### L IPID, TSH, T7, CMP #### [facility] [address] [address] [address] Rich Cutler Cholesterol [Mass/Vol] 237 mg/dL Critically high <=200 [facility] Comment on above: Performed By: #### L IPID, TSH, T7, CMP #### [facility] [address] [address] [address] Rich Cutler Cholesterol in HDL [Mass/Vol] 44 mg/dL Normal 40-60 [facility] Comment on above: Performed By: #### L IPID, TSH, T7, CMP #### [facility] [address] [address] [address] Rich Cutler Cholesterol in LDL [Mass/Vol] 172.2 mg/dL Normal [facility] Comment on above: Performed By: #### L IPID, TSH, T7, CMP #### [facility] [address] [address] [address] Rich Cutler Cholesterol.total/Ch olesterol in HDL [Mass ratio] 5.4 {ratio} Normal [facility] Comment on above: Performed By: #### L IPID, TSH, T7, CMP #### [facility] [address] [address] [address] Rich Cutler HDL NORMAL > or = 60 mg/dl - LO W CARDIOVASCULAR RISK <40 mg/dl - HIGH CARDIOVASCULAR RISK Normal [facility] Comment on above: Performed By: #### L IPID, TSH, T7, CMP #### [facility] [address] [address] [address] Rich Cutler LDL CALC NORMAL SEE BELOW Normal [facility] Comment on above: Result Comment: <100 mg/dl OPTIMAL 100 - 129 mg/dl NEAR OR ABOVE OPTIMAL 130 - 159 mg/dl BORDERLINE HIGH 160 - 189 mg/dl HIGH >190 mg/dl VERY HIGH Performed By: #### L IPID, TSH, T7, CMP #### [facility] [address] [address] [address] Rich Cutler Triglyceride [Mass/Vol] 104 mg/dL Normal <=150 [facility] Comment on above: Performed By: #### L IPID, TSH, T7, CMP #### [facility] [address] [address] [address] Rich Cutler VLDL CALC 20.8 mg/dL Normal [facility] Comment on above: Performed By: #### L IPID, TSH, T7, CMP #### [facility] [address] [address] [address] Rich Cutler PROF 14(COMP METB)on 022 Albumin [Mass/Vol] 3.5 g/dL Normal 3.4-5.0 [facility] Comment on above: Performed By: #### L IPID, TSH, T7, CMP #### [facility] [address] [address] [address] Rich Cutler Albumin/Globulin [Mass ratio] 0.9 {ratio} Normal [facility] Comment on above: Performed By: #### L IPID, TSH, T7, CMP #### [facility] [address] [place] [address] Dr. Rich Cutler ALP [Catalytic activity/Vol] 93 U/L Normal 46-116 [facility] Comment on above: Performed By: #### L IPID, TSH, T7, CMP #### [facility] [address] [place] [address] Dr. Rich Cutler ALT [Catalytic activity/Vol] 44 U/L Normal 14-59 [facility] Comment on above: Performed By: #### L IPID, TSH, T7, CMP #### [facility] [address] [place] [address] Dr. Rich Cutler Anion gap [Moles/Vol] 8.5 mmol/L Normal [facility] Comment on above: Performed By: #### L IPID, TSH, T7, CMP #### [facility] [address] [place] [address] Dr. Rich Cutler AST [Catalytic activity/Vol] 26 U/L Normal 15-37 [facility] Comment on above: Performed By: #### L IPID, TSH, T7, CMP #### [facility] [address] [place] [address] Dr. Rich Cutler Bilirubin [Mass/Vol] 0.3 mg/dL Normal 0.2-1.0 [facility] Comment on above: Performed By: #### L IPID, TSH, T7, CMP #### [facility] [address] [place] [address] Dr. Rich Cutler Calcium [Mass/Vol] 9.0 mg/dL Normal 8.5-10.1 [facility] Comment on above: Performed By: #### L IPID, TSH, T7, CMP #### [facility] [address] [place] [address] Dr. Rich Cutler Chloride [Moles/Vol] 106 mmol/L Normal 98-107 [facility] Comment on above: Performed By: #### L IPID, TSH, T7, CMP #### [facility] [address] [address] [address] Rich Cutler CO2 [Moles/Vol] 31.0 mmol/L Normal 21.0-32.0 [facility] Comment on above: Performed By: #### L IPID, TSH, T7, CMP #### [facility] [address] [address] [address] Rich Cutler Creatinine [Mass/Vol] 1.11 mg/dL Critically high 0.55-1.02 [facility] Comment on above: Performed By: #### L IPID, TSH, T7, CMP #### [facility] [address] [address] [address] Rich Cutler EGFR-AF MALDIVIAN >60 Normal >=60 [facility] Comment on above: Performed By: #### L IPID, TSH, T7, CMP #### [facility] [address] [place] [address] Dr. Rich Cutler EGFR-NON AF MALDIVIAN 50 mL/min/1.73m2 Critically low >=60 [facility] Comment on above: Performed By: #### L IPID, TSH, T7, CMP #### [facility] [address] [place] [address] Dr. Rich Cutler Globulin (S) [Mass/Vol] 3.7 g/dL Normal [facility] Comment on above: Performed By: #### L IPID, TSH, T7, CMP #### [facility] [address] [place] [address] Dr. Rich Cutler Glucose [Mass/Vol] 121 mg/dL Critically high 74-106 T [facility] Comment on above: Performed By: #### L IPID, TSH, T7, CMP #### [facility] [address] [place] [address] Dr. Rich Cutler Potassium [Moles/Vol] 4.5 mmol/L Normal 3.5-5.1 [facility] Comment on above: Performed By: #### L IPID, TSH, T7, CMP #### [facility] [address] [place] [address] Dr. Rich Cutler Protein [Mass/Vol] 7.2 g/dL Normal 6.4-8.2 [facility] Comment on above: Performed By: #### L IPID, TSH, T7, CMP #### [facility] [address] [address] [address] iRch Cutler Sodium [Moles/Vol] 141 mmol/L Normal 136-145 [facility] Comment on above: Performed By: #### L IPID, TSH, T7, CMP #### [facility] [address] [address] [address] Rich Cutler Urea nitrogen [Mass/Vol] 16.0 mg/dL Normal 7.0-18.0 [facility] Comment on above: Performed By: #### L IPID, TSH, T7, CMP #### [facility] [address] [place] [address] Dr. Rich Cutler Urea nitrogen/Creatinine [Mass ratio] 14.4 mg/mg Normal [facility] Comment on above: Performed By: #### L IPID, TSH, T7, CMP #### [facility] [address] [address] [address] Rich Cutler TSHon 09-23-2022 TSH 3.915 uIU/mL Critically high 0.358-3.740 [facility] Comment on above: Performed By: #### L IPID, TSH, T7, CMP #### [facility] [address] [place] [address] Dr. Rich Cutler Physician Referralon 022 Physician Referral [phone] [id number] Normal [facility] Lipid Panelon 10-07-2021 Cholesterol [Mass/Vol] 205 mg/dL High 140-200 [facility] Comment on above: Result Comment: Chol less than 200 mg/dl low risk Chol 201-239 mg/dl borderline risk Chol 240 mg/dl and greater high risk Performed By: #### L IPID, [id number], TSH3 wRFLX #### [facility] [address] [place] [address] [place] Cholesterol in HDL [Mass/Vol] 25 mg/dL Low 35-85 [facility] Comment on above: Result Comment: HDL CHOL ATP-III CLASSIFICATION Cardiovascular Risk HDL > or equal to 60 mg/dL LOW HDL < 40 mg/dL HIGH Performed By: #### L IPID, [id number], TSH3 wRFLX #### [facility] [address] [place] [address] [facility] Cholesterol.total/Ch olesterol in HDL [Mass ratio] 8.2 {ratio} Normal <5.0 [facility] Comment on above: Performed By: #### L IPID, [id number], TSH3 wRFLX #### [facility] [address] [id number] [facility] LDL Cholesterol,Calculat ed 160 mg/dL High 0-100 [facility] Comment on above: Result Comment: LDL ATP III CLASSIFICATION LDL less than 100 mg/dL Optimal LDL 100-129 mg/dL Near or above optimal LDL 130-159 mg/dL Borderline high LDL 160-189 mg/dL High LDL greater than 189 mg/dL Very high Performed By: #### L IPID, [id number], TSH3 wRFLX #### [facility] [address] [id number] [facility] Triglyceride w/Reflex 100 mg/dL Normal 35-149 [facility] Comment on above: Result Comment: TRIG ATP III CLASSIFICATION TRIG less than 150 mg/dL Normal TRIG 150-199 mg/dL Borderline high TRIG 200-500 mg/dL High TRIG greater than 500 mg/dL Very high Standard traceable to the Center for Disease Conrtrol and Prevention (CDC) test method. Performed By: #### L IPID, [id number], TSH3 wRFLX #### [facility] [address] [place] [address] [facility] VLDL CHOLESTEROL 20 mg/dL Normal [facility] Comment on above: Performed By: #### L IPID, [id number], TSH3 wRFLX #### [facility] [address] [place] [address] [facility] Thyroid Stim Hormone w/Rflxo n 10-07-2021 Thyroid Stim Hormone w/Rflx 3.27 u[iU]/mL Normal 0.45-5.33 [facility] Comment on above: Performed By: #### L IPID, [id number], TSH3 wRFLX #### [facility] [address] [place] [address] [facility] Vitamin D 25 Hydroxy Totalon 10-07-2021 Vitamin D 25 Hydroxy Total 26.5 ng/mL Low 30-100 [facility] Comment on above: Result Comment: JACKELINE MIN D STATUS 25(OH)VITAMIN D RANGE (ng/mL) Deficient <20 Insufficient 20 to <30 Sufficient 30 to 100 Reference: Lanny MF,Gino NC, Dyan VALENZUELA, et al. Evaluation,treatment, and prevention of vitamin D deficiency; an Endocrine Society clinical practice guideline. JCEM. 2010; 96(7):1911-30. PERFORMED BY: [place] [address] PATHOLOGIST LACQUERER SILVESTRE SCHULER M.D. Performed By: #### L IPID, [id number], TSH3 wRFLX #### [address] [address] [facility] Vital Signs Date Time Vital Sign Value Performing Clinician Deidre gagnon 10-06-2022 15:36-0500 Blood Pressure Location Umm MARTÍNEZ [facility] [place] 10-06-2022 15:36-0500 Diastolic blood pressure 86 mm[Hg] Umm MARTÍNEZ [facility] [place] 10-06-2022 15:36-0500 Heart rate 72 /min Umm MARTÍNEZ [facility] [place] 10-06-2022 15:36-0500 Respiratory rate 16 /min Umm MARTÍNEZ [facility] [place] 10-06-2022 15:36-0500 Systolic blood pressure 126 mm[Hg] Umm MARTÍNEZ [facility] [place] Encounters Encounter Date Encounter Type Care Provider Facility Start: 11-26-2022 Encounter for preprocedural laboratory examination DR UMM MARTÍNEZ . [facility] Start: 11-25-2022 End: 11-26-2022 ambulatory Umm MARTÍNEZ Facility:[id number] Start: 11-20-2022 End: 11-21-[address] UMM MARTÍNEZ . Facility:[facility] Start: 11-20-2022 End: 11-21-2022 Encounter for preprocedural laboratory examination DR UMM MARTÍNEZ . Facility: Start: 10-06-2022 End: 10-07-2022 ambulatory Umm MARTÍNEZ Facility:[facility] Start: 10-06-2022 End: 10-06-2022 Patient encounter procedure Umm MARTÍNEZ General Surgery [facility] [place] Start: 10-02-2022 End: 10-03-[address] KENDRA MURILLO . Facility: Start: 09-30-2022 End: 10-01-[address] KENDRA MURILLO . Facility: Start: 09-28-2022 Encounter for genera l adult medical examination without abnormal findings DR KENDRA MURILLO . [facility] Start: 09-24-2022 End: 09-24-[address] SYBIL CORDOVA . Facility: Start: 09-23-2022 End: 09-24-[address] KENDRA MURILLO . Facility: Start: 09-23-2022 End: 09-24-2022 Encounter for general adult medical examination without abnormal findings DR KENDRA MURILLO . Facility: Start: 09-14-[address] KENDRA MURILLO . Facili ty:[facility] Procedures Date Procedure Procedure Detail Performing Clinician Start: 08-29-2019 Cystoscopic removal of ureteric stent Umm MARTÍNEZ Bilateral tubal ligation Ad hawill MARTÍNEZ Catheterization of l eft heart Umm GEORGIEL Cholecystectomy Umm JACQUESL Cystoscopic insertio n of ureteric stent Umm JACQUESL Dilation and curetta ge of uterus Umm MARTÍNEZ Vaginal hysterectomy Umm JACQUESL Immunizations Immunization Date Immunization Notes Care Provider Fa [facility] 04-14-2021 SARS-CoV-2 (COVID-19 ) mRNA BNT-162b2 vax Umm MARTÍNEZ [facility] [place] 03-11-2021 SARS-CoV-2 (COVID-19 ) mRNA BNT-162b2 vax Umm MARTÍNEZ [facility] [place] Payers Date Payer Category Payer Unknown [id number] [id number] 1965 Unknown [id number] 2.16.8 [id number] 1965 Unknown [id number] 2.16.84 [id number] 1965 Unknown [id number] 2.16.84 [id number] 1965 Unknown [id number] 2.16.84 [id number] 1965 Unknown [id number] 2.16.84 [id number] 1965 Unknown [id number] 2.16.84 [id number] 1965 Unknown [id number] 2.16.84 [id number] 1965 Unknown [id number] 2.16.84 [id number] 1960 Self-pay [id number] 1960 Unknown [id number] Social History Date Type Detail Facility Start: 10-06-2022 Tobacco smoking status Ex-smoker (fi nding) [facility] [place] Tobacco smoking status Never [facility] [place] Sex Assigned At Female [facility] Functional Status Date Assessment Result Facility 10-06-2022 Functional Status N/A [facility] [place] Clinical Note 11-25-2022 Note Date & Type Note Facility 11-25-2022 Note OPERATIVE NOTE OPERATION DATE: 11/25/2022 PREOPERATIVE DIAGNOSIS: Colorectal screening. POSTOPERATIVE DIAGNOSIS: Normal colonoscopy to cecum. PROCEDURE: Colonoscopy to cecum. SURGEON: Umm Martínez M.D. ANESTHESIA: Monitored anesthesia care. ESTIMATED BLOOD LOSS: Zero INDICATIONS AND CONSENT: Patient is a 57-year-old female who presents for colorectal screening. Indications, risks, benefits, alternatives of proceeding with colonoscopy were explained extensively to the patient, including the risks of bleeding, colon perforation or anesthetic complications. All of her questions were answered. Informed consent was obtained. PROCEDURE: Patient brought to the operating room, placed in the left lateral decubitus position. Monitored anesthesia care was provided. Rectal exam was performed which showed no masses or blood. The scope was inserted into the anal canal. Under direct visualization was advanced. With the aid of abdominal compression, it was advanced to the cecum where cecal markings were clearly identified. There was noted to be a good prep. Upon withdrawal of the scope, mucosal surfaces were carefully examined. There were no mass lesions or polyps. No inflammatory changes or ulcerations. No significant diverticulosis. The scope was retroflexed in the anal canal. There was no significant hemorrhoidal disease. The scope was then withdrawn. Patient tolerated procedure well, was sent to recovery room in good condition. Follow up screening colonoscopy should be in 10 years. CC: Kendra Murillo M.D. [facility] Clinical Note 10-11-2022 Note Date & Type Note Facility 10-11-2022 Note Chief Complaint consultation for colonoscopy and skin lesions HPI Staff 57 year old female presents on consultation from Dr. Murillo for screening colonoscopy and evaluation of skin lesions. Chest lesion was evaluated 06/2021; patient did not proceed with scheduled removal. Denies this has changed since last evaluation. In addition, she has skin lesion central thoracic spine. Denies abdominal or rectal pain. No rectal bleeding or change in bowel habits. Denies nausea or vomiting. No unexplained weight loss. Never had colonoscopy in the past. Cousin with history of colon cancer, diagnosed age 50's. History of Present Illness 57 yo female with h/o htn, CAD, hyperlipidemia, SURESH, panic d/o, referred for colorectal screening; denies change in bms or blood in stools; no abdominal complaints; on regular asa daily, no NSAID use, no SBE prophylaxis; abdominal operations significant for tubal ligation, cholecystectomy, vaginal hysterectomy; no previous colonoscopy; fmhx of colon cancer in a cousin, dx in their 50's; no fmhx of IBD; 46 pk-year h/o smoking, recently quit. Review of Systems PHQ Score Initial Depression Screen Score: 0 ROS - Provider Constitutional: no fever, no sweats, no weight loss. Eyes: no glasses, no blurred vision, no visual loss. ENMT: no dentures, no hoarseness, no swallowing difficulties, no hearing loss, no ear infection(s), no nose bleeds. Cardiovascular: normal blood pressure, no chest pain, regular heartbeat, no heart murmur. Respiratory: no shortness of breath, no cough, no asthma, no wheezing. Gastrointestinal: no nausea, no vomiting, no diarrhea, no constipation, no blood in stool, no change in bowel habits, no abdominal pain, no hepatitis. Genitourinary: no kidney stones, no urine infection, no dysuria. Musculoskeletal: no pain, no weakness. Skin: no changing moles, no rash, no skin lumps. Neurologic: no seizures, no epilepsy, no headache. Psychiatric: no emotional or psychiatric problem. Heme/Lymph: no bleeding problems, no anemia, no blood clots, no transfusions. Allergy/Immunologic: no swollen lymph nodes/glands, no IV drug abuse. Other: Additional ROS info: Except as noted in the above Review of Systems and in the History of Present Illness, all other systems have been reviewed and are negative or noncontributory. Physical Exam Vitals & Measurements HR: 72(Peripheral) RR: 16 BP: 126/86 HT: 62 in HT: 157.4 cm WT: 98 kg WT: 215.6 lb BMI: 39.56 HEENT: normal conjunctiva, sclera clear, no scleral icterus, EOM intact, PERRLA, oral mucosa moist without lesions. Neck: trachea midline, no mass, symmetric, no thyromegaly or nodules, no adenopathy Respiratory: lungs CTA, respirations non labored. Cardiovascular: regular rate and rhythm, no murmur, no pedal edema or varicosities. Gastrointestinal: obese; soft, non distended, no tenderness, no masses, no palpable hernias, diastasis recti no, no hepatosplenomegaly; normal bs Lymphatic: no cervical adenopathy, Musculoskeletal: normal gait, digits and nails without infection, nodes, cyanosis, clubbing. Skin: no rashes, multiple seborrheic keratosis on trunk, no inflammation, scabs or bleeding, no ulcers, no subcutaneous nodules, induration. Psychiatric/Neuro: oriented to time, place, person, judgement normal, affect appropriate for age, insight intact, no focal deficits. Tests: , review of old records completed, Discussed surgical options, risks, and possible complications with patient. Assessment/Plan 1. Screening for malignant neoplasm of colon (Z12.11: Encounter for screening for malignant neoplasm of colon) plan colonoscopy under anesthesia, informed consent obtained. 2. Seborrheic keratoses (L82.1: Other seborrheic keratosis) asymptomatic, not inflamed; observation for now. 3. BMI 39.0-39.9,adult (Z68.39: Body mass index [BMI] 39.0-39.9, adult) recommend diet and exercise. Follow-up No qualifying data available Problem List/Past Medical History Ongoing Adrenal mass Anxiety BMI 33.0-33.9,adult BMI 39.0-39.9,adult CAD (coronary artery disease) Depression Hemorrhoids History of kidney stones Hydronephrosis with obstructing calculus Hypertension Inflamed seborrheic keratosis Left ureteral injury LVH (left ventricular hypertrophy) Migraine Murmur Neoplasm of uncertain behavior of skin of chest Nocturia SURESH (obstructive sleep apnea) Panic disorder Paresthesia Retained ureteral stent Screening for malignant neoplasm of colon Seborrheic keratoses Smoker TIA (transient ischemic attack) Urinary frequency Urinary urgency Historical Allergic conjunctivitis Anticoagulated Kidney stones Procedure/Surgical History Cystoscopic removal of ureteric stent (08/29/2019), Bilateral tubal ligation, Catheterization of left heart, Cholecystectomy, Cystoscopic insertion of ureteric stent, Dilatation and curettage, Vaginal hysterectomy. Medications amitriptyline 100 mg oral tablet, 100 mg= 1 tab(s), Oral, (more content not included)... [facility] Comment on above: Result Comment: Elec tronically Signed By: DIPESH BUCKNER, Umm Hogan\Date and Time Signed: 10/11/22 11:01 EST Evaluation + Plan note Note Date & Type Note Facility Evaluation + Plan note No data available for this section [facility] [place] [facility] Discharge instructions Note Date & Type Note Facility Hospital Discharge instructions No data available for this section [facility] [place] Progress note Note Date & Type Note Facility Progress note No data available for this section [facility] [place] Summary Purpose Family History No Family History Records FoundNo Family History Records FoundNo Family History Records Found Advance Directives No Advanced Directives Records FoundNo Advanced Directives Records FoundNo Advanced Directives Records Found Additional Source Comments INFORMATION SOURCE (unrecogn ized section and content) DATE CREATED AUTHOR 12/17/2021 [facility] DATE CREATED AUTHOR AUTHOR'S ORGANIZ ATION 12/16/2022 [facility] DATE CREATED AUTHOR AUTHOR'S ORGANIZ ATION 03/26/2023 [facility] Patient Care team informatio n (unrecognized section and content) Personnel Name: Kendra Murillo MD Address: Address: [address] [place] [address] Personnel Name: Kendra Murillo MD Address: Address: [address] [place] [address] FOR RECORDS PERTAINING TO PATIENTS WHO ARE OR HAVE BEEN ENROLLED IN A CHEMICAL DEPENDENCY/SUBSTANCEABUSE PROGRAM, SOME INFORMATION MAY BE OMITTED. This clinical summary was aggregated from multiple sources. Caution should be exercised in using it in the provision of clinical care. This summary normalizes information from multiple sources, and as a consequence, information in this document may materially change the coding, format and clinical context of patient data. In addition, data may be omitted in some cases. CLINICAL DECISIONS SHOULD BE BASED ON THE PRIMARY CLINICAL RECORDS. [facility] [employer] [facility]. provides no warranty or guarantee of the accuracy or completeness of information in this document.
--- NOTE | 2024-04-21 19:28 | ECG_ITS ---
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
--- NOTE | 2024-04-21 19:29 | XR_ITS ---
The [address] [address] Patient Name: MILAN RASMUSSEN MRN: [id number] date: 1965 Sex: F Assigned Patient Location: ER Current Patient Location: ER Accession/Order Number: [id number] Exam Date: 04/21/2024 19:32 Report Date: 04/21/2024 20:45 At the request of: JOSE BETANCUR Procedure: XR chest 1V EXAM: XR chest 1V HISTORY: chest pressure COMPARISON: None. TECHNIQUE: Single AP radiograph of the chest FINDINGS: No pneumothorax, pleural effusion or consolidation. Normal heart size. No acute osseous abnormality. XR/XR chest 1V IMPRESSION: No acute cardiopulmonary process. Electronically authenticated by: KOURTNEY LAZO Date: 04/21/2024 20:45
--- NOTE | 2024-04-21 19:29 | ED.CHESTPAI1 ---
HPI - Chest Pain General Chief Complaint: Chest Pain Stated Complaint: CHEST PRESSURE, NAUSEA Time Seen by Provider: 04/21/24 19:24 Source: patient Mode of arrival: walk-in Limitations: no limitations History of Present Illness HPI narrative: 58-year-old female presents to the emergency department for not feeling good. For approximately a week she has had continuous symptoms of no pain in her chest but it just does not feel right. She thinks it may be upper chest pressure. It does not seem to radiate. She has not had a cough or fever or injury. She had a stress test about a year ago and she states it was normal. No abdominal pain vomiting or diarrhea. Related Data Home Medications ?Medication ?Instructions ?Recorded ?Confirmed metoprolol tartrate 100 mg tablet 100 mg PO Q12H 08/13/23 04/21/24 metformin 500 mg tablet 500 mg PO BID 04/21/24 04/21/24 quetiapine 25 mg tablet 25 mg PO BEDTIME 04/21/24 04/21/24 Allergies Allergy/AdvReac Type Severity Reaction Status Date / Time No Known Drug Allergies Allergy Verified 04/21/24 19:21 Review of Systems ROS Narrative A ten point review of systems is negative except as noted above. [facility] Medical History (Updated 04/21/24 @ 22:39 by Yesy Tompkins) Anxiety ?F41.9 - Anxiety disorder, unspecified (ICD-10) HTN (hypertension) ?I10 - Essential (primary) hypertension (ICD-10) Diabetes ?E11.9 - Type 2 diabetes mellitus without complications (ICD-10) TIA (transient ischemic attack) ?G45.9 - Transient cerebral ischemic attack, unspecified (ICD-10) Social History Smoking status: Former smoker Exam Narrative Exam Narrative: Nurses note and vital signs reviewed and patient is not hypoxic. General: The patient appears well and in no apparent distress. Patient is resting comfortably on cart. Skin: Warm, dry, no pallor noted. There is no rash noted. Head: Normocephalic, atraumatic Eye: Normal conjunctiva, no drainage Ears, Nose, Mouth, and Throat: oral mucosa is moist. Nares patent. Cardiovascular: Regular Rate and Rhythm Respiratory: Patient is in no distress, no accessory muscle use, lungs are clear to auscultation, no wheezing, rales or rhonchi Back: non-tender GI: Soft and nontender Musculoskeletal: The patient has no evidence of calf tenderness, no pitting edema, symmetrical pulses noted bilaterally Neurological: A&O, normal speech Psychiatric: Cooperative Constitutional Vital Signs, click to edit/add: Last Vital Signs Temp 98.5 F 04/21/24 19:17 Pulse 82 04/21/24 22:40 Resp 14 04/21/24 22:40 BP 222/92 H 04/21/24 22:37 Pulse Ox 97 04/21/24 19:30 O2 Del Method Room Air 04/21/24 19:17 Course Vital Signs Vital signs: Vital Signs Pulse Rate 73 04/21/24 19:15 Respiratory Rate 16 04/21/24 19:15 Temperature 98.5 F 04/21/24 19:17 Pulse Rate 82 04/21/24 22:40 Respiratory Rate 14 04/21/24 22:40 Blood Pressure 222/92 H 04/21/24 22:37 Pulse Oximetry 97 04/21/24 19:30 Oxygen Delivery Method Room Air 04/21/24 19:17 MDM - Chest Pain MDM Narrative Medical decision making narrative: The patient presented with elevated blood pressure and has received IV hydralazine and IV labetalol. She is placed on an IV labetalol drip. Her workup otherwise is negative including CTA of the chest and troponin. She is being admitted to ICU. Treatment diagnosis and disposition were discussed with the patient. Differential Diagnosis Differential diagnosis: Likely pneumothorax, unstable angina pectoris, atypical chest pain, st elevation myocardial infarction, costochondritis, chest pain and other (PE, uncontrolled blood pressure) Lab Data Attestation: I reviewed the patient's lab results. Labs: Lab Results 04/21/24 Range/Units 19:30 WBC 8.0 (4.0-11.0) 10^3/uL RBC 5.22 (4.20-5.40) 10^6/uL Hgb 13.8 (12.0-16.0) g/dL Hct 44.0 (36.0-48.0) % MCV 84.3 (81.0-99.0) fL MCH 26.4 L (26.7-34.0) pg MCHC 31.4 (29.9-35.2) g/dL RDW 14.2 (11.0-15.0) % Plt Count 264 (150-450) 10^3/uL MPV 10.5 (9.5-13.5) fL Neut % (Auto) 57.8 (43.0-75.0) % Lymph % (Auto) 31.2 (20.5-60.0) % [place] % (Auto) 6.3 (1.7-12.0) % Eos % (Auto) 3.6 (0.9-7.0) % Baso % (Auto) 0.8 (0.2-2.0) % Neut # (Auto) 4.6 (1.4-6.5) 10^3/uL Lymph # (Auto) 2.5 (1.2-3.8) 10^3/uL [place] # (Auto) 0.5 (0.3-0.8) 10^3/uL Eos # (Auto) 0.3 (0.0-0.7) 10^3/uL Baso # (Auto) 0.1 (0.0-0.1) 10^3/uL Abs Immat Gran (auto) 0.02 (0.00-0.03) 10^3/uL Imm/Tot Granulo (auto) 0.3 (0.0-0.5) % D-Dimer 0.61 H* (<=0.59) mg/L FEU Sodium 138 (136-145) mmol/L Potassium 3.5 (3.5-5.1) mmol/L Chloride 101 (98-107) mmol/L Carbon Dioxide 25.8 (21.0-32.0) mmol/L Anion Gap 14.7 BUN 16.0 (7.0-18.0) mg/dL Creatinine 1.16 H (0.55-1.02) mg/dL Est GFR ( Amer) 58 L (>=60) Est GFR (Non-Af Amer) 48 L (>=60) BUN/Creatinine Ratio 13.8 Glucose 144 H (74-106) mg/dL Calcium 8.8 (8.5-10.1) mg/dL Troponin I High Sens 7.8 (4.0-51.3) pg/mL Imaging Data Chest x-ray: Radiologist's impression: ITS Impressions Chest X-Ray 04/21/24 19:29 IMPRESSION: No acute cardiopulmonary process. Electronically authenticated by: KOURTNEY Hudson: 04/21/2024 20:45 Chest CTA 04/21/24 20:01 IMPRESSION: No pulmonary embolus. No acute cardiopulmonary process. Solid 11 mm nodule of the right middle lobe recommend follow-up chest CT in 3 months, PET/CT or soft tissue sampling. Electronically authenticated by: KOURTNEY LAZO Date: 04/21/2024 22:24 ECG Data Attestation: I personally reviewed and interpreted this ECG as follows: (EKG on my interpretation shows normal sinus rhythm without acute change, flipped T waves present in V6) Heart Score History: Moderately Suspicious ECG: NS Repolarization Age: >45-<65 years Risk Factors: 1 or 2 Risk Factors Troponin: <Normal Limit Total Heart Score Recommendations & Risks:: 4 Critical Care Time Critical Care Time Critical Care Time: Yes Total Critical Care Time: 45 Attestation: Due to the high probability of sudden and clinically significant deterioration in the patient's condition he/she required the highest level of my preparedness to intervene urgently I provided critical care time including documentation time, medication orders and management, reevaluation, vital sign assessment, ordering and reviewing of lab tests, ordering and reviewing of x-ray studies, and admission orders. Aggregate critical care time is 45 minutes including only time during which I was engaged in work directly related to his/her care and did not include time spent treating other patients simultaneously. Discharge Plan Discharge Chief Complaint: Chest Pain Clinical Impression: Uncontrolled hypertension Patient Disposition: Admitted As Inpatient Time of Disposition Decision: 22:36 Condition: Good
[2024-04-21 19:42] LABS: Basophils Absolute Auto 0.1 10^3/uL (0.0-0.1); Basophils Percent Auto 0.8 % (0.2-2.0); Eosinophils Absolute Auto 0.3 10^3/uL (0.0-0.7); Eosinophils Percent Auto 3.6 % (0.9-7.0); Hemoglobin 13.8 g/dL (12.0-16.0); Immature Granulocytes Abs Auto 0.02 10^3/uL (0.00-0.03); Immature Granulocytes Pct Auto 0.3 % (0.0-0.5); Lymphocytes Absolute Auto 2.5 10^3/uL (1.2-3.8); Lymphocytes Percent Auto 31.2 % (20.5-60.0); Mean Corpuscular HGB Conc 31.4 g/dL (29.9-35.2); Mean Corpuscular Hemoglobin 26.4 pg (26.7-34.0); Mean Corpuscular Volume 84.3 fL (81.0-99.0); Mean Platelet Volume 10.5 fL (9.5-13.5); Monocytes Absolute Auto 0.5 10^3/uL (0.3-0.8); Monocytes Percent Auto 6.3 % (1.7-12.0); Neutrophils Absolute Auto 4.6 10^3/uL (1.4-6.5); Neutrophils Percent Auto 57.8 % (43.0-75.0); Platelet Count 264 10^3/uL (150-450); Red Blood Count 5.22 10^6/uL (4.20-5.40); Red Cell Distribution Width 14.2 % (11.0-15.0)
[2024-04-21 19:51] LABS: Anion Gap 14.7; BUN Creatinine Ratio 13.8; Calcium 8.8 mg/dL (8.5-10.1); Carbon Dioxide 25.8 mmol/L (21.0-32.0); Chloride 101 mmol/L (98-107); Estimated GFR (African America 58 (>=60); Estimated GFR (Non-African Ame 48 (>=60); Glucose 144 mg/dL (74-106); Potassium 3.5 mmol/L (3.5-5.1); Sodium 138 mmol/L (136-145)
[2024-04-21 19:59] LABS: D Dimer 0.61 mg/L FEU (<=0.59); Troponin I High Sensitivity 7.8 pg/mL (4.0-51.3)
--- NOTE | 2024-04-21 20:01 | CT_ITS ---
The [address] [address] Patient Name: MILAN RASMUSSEN MRN: [id number] date: 1965 Sex: F Assigned Patient Location: ER Current Patient Location: ER Accession/Order Number: [id number] Exam Date: 04/21/2024 21:10 Report Date: 04/21/2024 22:24 At the request of: JOSE BETANCUR Procedure: CT angio chest EXAM: CT angio chest HISTORY: Chest pressure, elevated D-dimer COMPARISON: None. TECHNIQUE: Intravenous contrast-enhanced axial CT through the chest was performed in the pulmonary angiographic phase with coronal and sagittal reformats provided. Maximum intensity projections of the chest are also provided. FINDINGS: Neck/mediastinum: Imaged thyroid is normal. No supraclavicular, axillary, mediastinal or hilar lymphadenopathy. Cardiovascular: Mild cardiomegaly with biatrial enlargement. No pericardial effusion or thickening. Moderate to severe calcific atherosclerosis of the coronary arteries. Normal caliber of the ascending thoracic aorta and the main pulmonary artery. No aortic dissection. No central filling defects in the pulmonary arteries. Lungs/pleura/airways: Trachea and mainstem bronchi are clear. No pneumothorax, pleural effusion or consolidation. Solid right middle lobe pulmonary nodule measures 1.1 cm axial image 54. 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 Musculoskeletal/soft tissues: The soft tissues are within normal limits. No acute fracture or aggressive osseous abnormality. CT/CT angio chest IMPRESSION: No pulmonary embolus. No acute cardiopulmonary process. Solid 11 mm nodule of the right middle lobe recommend follow-up chest CT in 3 months, PET/CT or soft tissue sampling. Electronically authenticated by: KOURTNEY LAZO Date: 04/21/2024 22:24
[2024-04-21] MEDS: HYDRALAZINE HCL 20 MG/ML VIAL 10 MG IVP (20:07)
[2024-04-21] MEDS: LABETALOL HCL 20 MG/4 ML SYRINGE 10 MG IVP (20:49)
[2024-04-21] MEDS: LABETALOL HCL 20 MG/4 ML SYRINGE IVP (22:18)
[2024-04-22] VITALS (102 sets, daily range): BP systolic 114–203; BP diastolic 54–106; PULSE 60–92; TEMP 36.4–36.8; O2SAT 91–99; BMI 38.4
[2024-04-22] MEDS: NICARDIPINE IN NACL, ISO-OSM 40 MG/200 ML PIGGYBACK 25 MG IV (00:05)
[2024-04-22] MEDS: IBUPROFEN 400 MG TABLET 800 MG PO (00:28)
--- OUTSIDE RECORDS SUMMARY | 2024-04-22 00:54 | XMS_ITS | CCD ---
Author Organization [facility] Care Team Providers Care Top Coater Name Role Phone Kendra Murillo Primary Care Physician [phone] Umm MARTÍNEZ Attending Unavailable NILL, Umm Michael [...] Unavailable NILL ., DR SALOMON Consulting Unavailable DIPTIGUILLE Consulting Unavailable MICHAEL II, BASILIA Consulting Unavailable [...] DR GARDNER Attending Unavailable HOY ., DR GRADNER Consulting Unavailable HOY ., DR GARDNER Primary Care Unavailable HOY ., DR GARDNER Admitting Unavailable HOY ., DR GARDNER Attending Unavailable HOY ., DR GARDNER Consulting Unavailable HOY ., DR GARDNER Primary Care Unavailable HELENA, DR ADELIA Medrano Consulting Unavailable Allergies Allergy Classification Reported Allergen(s) Allergy Type Date of Onset Reaction(s) Facility (1 source) No Known Medication Allergies; 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: [No Known Medication Allergies] Propensity to adverse reactions (disorder) [facility] Repository Medications Current Medications Medication Drug Class(es) [...] Coronary arteriosclerosis; 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: [Atherosclerotic heart disease of [place] coronary artery without angina pectoris] Onset: 11-26-2022 [...] 11-26-2022 12-20-2019 Episodic Other aftercare (1 source) [facility] (current) use of aspirin; 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: [ALF CURRENT USE OF ASPIRIN] Onset: 11-26-2022 Episodic Other aftercare (1 source) Other senior care (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 therapy; 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: [OTH ALF CURRENT [...] Range Facility Outside Colonoscopyon 2022 Outside Colonoscopy [id number] .00CD:127 Normal [facility] Reminderson 11-27-2022 Reminders - From: Na Hayes LPN To: N - Clinical; Sent: 11/27/2022 12:46:10 EST Show up: 10/25/2032 07:00:00 EST Subject: colonoscopy recall Due Date/Time: 11/25/2032 07:00:00 EST Reminder/Recall Patient is due for screening colonoscopy 11/25/2032. Normal [facility] Lab Reportson 11-24-2022 Lab Reports [id number] .00CD:127 Normal [facility] Covid-19 PCR ([facility])on 10-24 SARS-CoV-2 (COVID-19) RNA BECK+probe Ql (Unsp spec) Not detected Normal NOT DETECTED [facility] Comment on above: Result Comment: This test is not yet approved or cleared by the [place] FDA. When there are no FDA-approved or cleared tests available, and other criteria are met, FDA can make tests available under an emergency access mechanism called an Emergency Use Authorization (EUA). The EUA for this test is supported by the Dog Catcher of Health and Human Service's (HHS's) declaration [...] consistent with SARS-CoV-2. Performed By: #### [facility] #### [facility] [address] [address] [address] Rich Cutler Consent for Procedure/Surger yon 10-07-2022 Consent for Procedure/Surgery [id number] .[id number]:127 Normal [facility] Ambulatory Visit Summaryon 1 12-06-2021 Ambulatory Visit Summary MILAN RASMUSESN :1965 Visit Date:10/06/2022 Ambulatory Visit Instructions Your [...] Allergic conjunctivitis Anticoagulated Kidney stones Normal [facility] VC VENOUS REFLUX NINO LMTon 1 12-02-2021 VC VENOUS REFLUX NINO LMT Patient: MILAN RASMUSSEN Exam Date: 10/02/2022 : 1965 Gender:F Ordering : DR KENDRA MURILLO . Admission #: [id number] Family : Order #: [id number] CLICK HERE TO VIEW EXAM RADIOLOGY REPORT [...] chronic thrombus visualized Compressibility: Normal Flow: Normal Probation Manager: Dist/med calf 3.3mm with 0s reflux. Tech Note: Incompetent SFJ and GSV. Patent varicose vein mid/med calf 2.9mm with 0s reflux. Patent varicose vein prox/post calf 3.8mm with 0s reflux. Patent varicose vein dist/med thigh 3.8mm with 2.0s reflux. CONCLUSION: 1. Mild right and escw-mo-xpltursf left great saphenous vein venous insufficiency with dilatation 2. Left saphenous popliteal junction reflux 3. Mild left anterior accessory saphenous vein venous insufficiency without dilatation 4. Small bilateral incompetent varicose veins Dictated by: Adelia Lezama MD on 10/02/2022 at 13:36 Approved by: Adelia Lezama MD on 10/02/2022 at 13:52 Normal [facility] ECHOCARDIO M/2D COMPLETEon 1 11-30-2021 ECHOCARDIO M/2D COMPLETE Patient: MILAN ARSMUSSEN Exam Date: 09/30/2022 : 1965 Gender:F Ordering : DR KENDRA MURILLO . Admission #: [id number] Family : Order #: [id number] CLICK HERE TO VIEW EXAM ECHOCARDIOGRAM REPORT [...] M.D. on 09/30/2022 at 18:37 Normal [facility] BNPon 09-24-2022 Natriuretic peptide B (Bld) [Mass/Vol] 501.0 pg/mL Normal <=900.0 [facility] Comment on above: Performed By: #### C VDTB #### [facility] [address] [place] [address] Dr. Rich Cutler CBC AUTO DIFFon 09-24-2022 BASO # 0.1 103/ul Normal 0.0-0.1 [facility] Comment on above: Performed By: #### C VDTBH #### [facility] [address] [place] [address] Dr. Rich Cutler Basophils/100 WBC (Bld) 0.8 % Normal 0.2-2.0 [facility] Comment on above: Performed By: #### C VDTBH #### [facility] [address] [place] [address] Dr. Rich Cutler EO # 0.3 103/ul Normal 0.0-0.7 [facility] Comment on above: Performed By: #### C VDTBH #### [facility] [address] [place] [address] Dr. Rich Cutler Eosinophils/100 WBC (Bld) 3.4 % Normal 0.9-7.0 [facility] Comment on above: Performed By: #### C VDTBH #### [facility] [address] [place] [address] Dr. Rich Cutler Erythrocyte distribution width (RBC) [Ratio] 13.3 % Normal 11.0-15.0 [facility] Comment on above: Performed By: #### C VDTBH #### [facility] [address] [place] [address] Dr. Rich Cutler Hematocrit (Bld) [Volume fraction] 40.5 % Normal 36.0-48.0 [facility] Comment on above: Performed By: #### C VDTBH #### [facility] [address] [place] [address] Dr. Rich Cutler Hemoglobin (Bld) [Mass/Vol] 13.1 g/dL Normal 12.0-16.0 [facility] Comment on above: Performed By: #### C VDTBH #### [facility] [address] [place] [address] Dr. Rich Cutler IG # 0.02 10e3/ul Normal 0.00-0.03 [facility] Comment on above: Performed By: #### C VDTBH #### [facility] [address] [place] [address] Dr. Rich Cutler IG % 0.3 % Normal 0.0-0.5 [facility] Comment on above: Performed By: #### C VDTBH #### [facility] [address] [place] [address] Dr. Rich Cutler LYMPH # 2.7 103/ul Normal 1.2-3.8 [facility] Comment on above: Performed By: #### C VDTBH #### [facility] [address] [place] [address] Dr. Rich Cutler Lymphocytes/100 WBC (Bld) 35.4 % Normal 20.5-60.0 [facility] Comment on above: Performed By: #### C VDTBH #### [facility] [address] [place] [address] Dr. Rich Cutler MANUAL DIFF REQ NO Normal [facility] Comment on above: Performed By: #### C VDTBH #### [facility] [address] [place] [address] Dr. Rich Cutler MCH (RBC) [Entitic mass] 28.2 pg Normal 26.7-34.0 [facility] Comment on above: Performed By: #### C VDTBH #### [facility] [address] [place] [address] Dr. Rich Cutler MCHC (RBC) [Mass/Vol] 32.3 g/dL Normal 29.9-35.2 [facility] Comment on above: Performed By: #### C VDTBH #### [facility] [address] [place] [address] Dr. Rich Cutler MCV (RBC) [Entitic vol] 87.3 fL Normal 81.0-99.0 [facility] Comment on above: Performed By: #### C VDTBH #### [facility] [address] [place] [address] Dr. Rich Cutler MONO # 0.5 103/ul Normal 0.3-0.8 [facility] Comment on above: Performed By: #### C VDTBH #### [facility] [address] [place] [address] Dr. Rich Cutler Monocytes/100 WBC (Bld) 6.5 % Normal 1.7-12.0 [facility] Comment on above: Performed By: #### C VDTBH #### [facility] [address] [place] [address] Dr. Rich Cutler NEUT # 4.1 103/ul Normal 1.4-6.5 [facility] Comment on above: Performed By: #### C VDTBH #### [facility] [address] [place] [address] Dr. Rich Cutler Neutrophils/100 WBC (Bld) 53.6 % Normal 43.0-75.0 [facility] Comment on above: Performed By: #### C VDTBH #### [facility] [address] [place] [address] Dr. Rich Cutler Platelet mean volume (Bld) [Entitic vol] 10.3 fL Normal 9.5-13.5 [facility] Comment on above: Performed By: #### C VDTBH #### [facility] [address] [place] [address] Dr. Rich Cutler PLT 283 103/ul Normal 150-450 [facility] Comment on above: Performed By: #### C VDTBH #### [facility] [address] [place] [address] Dr. Rich Cutler RBC 4.64 106/ul Normal 4.20-5.40 [facility] Comment on above: Performed By: #### C VDTBH #### [facility] [address] [place] [address] Dr. Rich Cutler WBC 7.6 103/ul Normal 4.0-11.0 [facility] Comment on above: Performed By: #### C VDTBH #### [facility] [address] [place] [address] Dr. Rich Cutler INSULINon 09-24-2022 Insulin 15.1 uIU/mL Normal 2.6-24.9 [facility] Comment on above: Performed By: #### C VDTBH #### [facility] [address] [place] [address] Dr. Rich Cutler PROF 14(COMP METB)on 022 Albumin [Mass/Vol] 3.5 g/dL Normal 3.4-5.0 [facility] Comment on above: Performed By: #### C VDTBH #### [facility] [address] [place] [address] Dr. Rich Cutler Albumin/Globulin [Mass ratio] 1.0 {ratio} Normal [facility] Comment on above: Performed By: #### C VDTBH #### [facility] [address] [place] [address] Dr. Rich Cutler ALP [Catalytic activity/Vol] 91 U/L Normal 46-116 [facility] Comment on above: Performed By: #### C VDTBH #### [facility] [address] [place] [address] Dr. Rich Cutler ALT [Catalytic activity/Vol] 47 U/L Normal 14-59 [facility] Comment on above: Performed By: #### C VDTBH #### [facility] [address] [place] [address] Dr. Rich Cutler Anion gap [Moles/Vol] 11.7 mmol/L Normal [facility] Comment on above: Performed By: #### C VDTBH #### [facility] [address] [place] [address] Dr. Rich Cutler AST [Catalytic activity/Vol] 24 U/L Normal 15-37 [facility] Comment on above: Performed By: #### C VDTBH #### [facility] [address] [place] [address] Dr. Rich Cutler Bilirubin [Mass/Vol] 0.2 mg/dL Normal 0.2-1.0 [facility] Comment on above: Performed By: #### C VDTBH #### [facility] [address] [place] [address] Dr. Rich Cutler Calcium [Mass/Vol] 8.9 mg/dL Normal 8.5-10.1 [facility] Comment on above: Performed By: #### C VDTBH #### [facility] [address] [place] [address] Dr. Rich Cutler Chloride [Moles/Vol] 105 mmol/L Normal 98-107 [facility] Comment on above: Performed By: #### C VDTBH #### [facility] [address] [place] [address] Dr. Rich Cutler CO2 [Moles/Vol] 28.1 mmol/L Normal 21.0-32.0 [facility] Comment on above: Performed By: #### C VDTBH #### [facility] [address] [place] [address] Dr. Rich Cutler Creatinine [Mass/Vol] 1.13 mg/dL Critically high 0.55-1.02 [facility] Comment on above: Performed By: #### C VDTBH #### [facility] [address] [place] [address] Dr. Rich Cutler EGFR-AF AUSTRIAN 60 mL/min/1.73m2 Normal >=60 [facility] Comment on above: Performed By: #### C VDTBH #### [facility] [address] [address] [address] Rich Cutler EGFR-NON AF AUSTRIAN 49 mL/min/1.73m2 Critically low >=60 [facility] Comment on above: Performed By: #### C VDTBH #### [facility] [address] [address] [address] Rich Cutler Globulin (S) [Mass/Vol] 3.5 g/dL Normal [facility] Comment on above: Performed By: #### C VDTBH #### [facility] [address] [place] [address] Dr. Rich Cutler Glucose [Mass/Vol] 119 mg/dL Critically high 74-106 [facility] Comment on above: Performed By: #### C VDTBH #### [facility] [address] [address] [address] Rich Cutler Potassium [Moles/Vol] 3.8 mmol/L Normal 3.5-5.1 [facility] Comment on above: Performed By: #### C VDTBH #### [facility] [address] [place] [address] Dr. Rich Cutler Protein [Mass/Vol] 7.0 g/dL Normal 6.4-8.2 [facility] Comment on above: Performed By: #### C VDTBH #### [facility] [address] [place] [address] Dr. Rich Cutler Sodium [Moles/Vol] 141 mmol/L Normal 136-145 [facility] Comment on above: Performed By: #### C VDTBH #### [facility] [address] [place] [address] Dr. Rich Cutler Urea nitrogen [Mass/Vol] 16.0 mg/dL Normal 7.0-18.0 [facility] Comment on above: Performed By: #### C VDTBH #### [facility] [address] [place] [address] Dr. Rich Cutler Urea nitrogen/Creatinine [Mass ratio] 14.2 mg/mg Normal [facility] Comment on above: Performed By: #### C VDTBH #### [facility] [address] [place] [address] Dr. Rich Cutler TROPONIN, HIGH SENSITIVITYon 09-24-2022 HSTROP 10.6 pg/mL Normal 4.0-51.3 [facility] Comment on above: Result Comment: CUT- OFF POINTS HAVE BEEN ESTABLISHED BASED ON THE FOURTH UNIVERSAL DEFINITIONS OF MYOCARDIAL INFARCTION. THE UPPER REFERENCE LIMIT (URL) OF TROPONIN, DEFINED THE 99TH PERCENTILE OF cTnI DISTRIBUTION IN A REFERENCE POPULATION, HAS BEEN CONFIRMED THE DECISION THRESHOLD FOR W[place] DIAGNOSIS. Performed By: #### C VDTBH #### [facility] [address] [place] [address] Dr. Rich Cutler XR CHEST 1 Von [...] [facility]MM HUMPHRIES Date: 2022-09-24 04:08 Normal [facility] CBC AUTO DIFFon 09-23-2022 BASO # 0.1 103/ul Normal 0.0-0.1 [facility] Comment on above: Performed By: #### C BC #### [facility] [address] [place] [address] Dr. Rich Cutler Basophils/100 WBC (Bld) 0.8 % Normal 0.2-2.0 [facility] Comment on above: Performed By: #### C BC #### [facility] [address] [place] [address] Dr. Rich Cutler EO # 0.2 103/ul Normal 0.0-0.7 [facility] Comment on above: Performed By: #### C BC #### [facility] [address] [place] [address] Dr. Rich Cutler Eosinophils/100 WBC (Bld) 3.5 % Normal 0.9-7.0 [facility] Comment on above: Performed By: #### C BC #### [facility] [address] [place] [address] Dr. Rich Cutler Erythrocyte distribution width (RBC) [Ratio] 13.4 % Normal 11.0-15.0 [facility] Comment on above: Performed By: #### C BC #### [facility] [address] [place] [address] Dr. Rich Cutler Hematocrit (Bld) [Volume fraction] 42.3 % Normal 36.0-48.0 [facility] Comment on above: Performed By: #### C BC #### [facility] [address] [place] [address] Dr. Rich Cutler Hemoglobin (Bld) [Mass/Vol] 13.4 g/dL Normal 12.0-16.0 [facility] Comment on above: Performed By: #### C BC #### [facility] [address] [place] [address] Dr. Rich Cutler IG # 0.03 10e3/ul Normal 0.00-0.03 [facility] Comment on above: Performed By: #### C BC #### [facility] [address] [place] [address] Dr. Rich Cutler IG % 0.5 % Normal 0.0-0.5 [facility] Comment on above: Performed By: #### C BC #### [facility] [address] [place] [address] Dr. Rich Cutler LYMPH # 2.9 103/ul Normal 1.2-3.8 [facility] Comment on above: Performed By: #### C BC #### [facility] [address] [place] [address] Dr. Rich Cutler Lymphocytes/100 WBC (Bld) 44.0 % Normal 20.5-60.0 [facility] Comment on above: Performed By: #### C BC #### [facility] [address] [place] [address] Dr. Rich Cutler MANUAL DIFF REQ NO Normal [facility] Comment on above: Performed By: #### C BC #### [facility] [address] [place] [address] Dr. Rich Cutler MCH (RBC) [Entitic mass] 28.4 pg Normal 26.7-34.0 [facility] Comment on above: Performed By: #### C BC #### [facility] [address] [place] [address] Dr. Rich Cutler MCHC (RBC) [Mass/Vol] 31.7 g/dL Normal 29.9-35.2 [facility] Comment on above: Performed By: #### C BC #### [facility] [address] [place] [address] Dr. Rich Cutler MCV (RBC) [Entitic vol] 89.6 fL Normal 81.0-99.0 [facility] Comment on above: Performed By: #### C BC #### [facility] [address] [place] [address] Dr. Rich Cutler MONO # 0.4 103/ul Normal 0.3-0.8 [facility] Comment on above: Performed By: #### C BC #### [facility] [address] [place] [address] Dr. Rich Cutler Monocytes/100 WBC (Bld) 6.6 % Normal 1.7-12.0 [facility] Comment on above: Performed By: #### C BC #### [facility] [address] [place] [address] Dr. Rich Cutler NEUT # 2.9 103/ul Normal 1.4-6.5 [facility] Comment on above: Performed By: #### C BC #### [facility] [address] [place] [address] Dr. Rich Cutler Neutrophils/100 WBC (Bld) 44.6 % Normal 43.0-75.0 [facility] Comment on above: Performed By: #### C BC #### [facility] [address] [address] [address] Rich Cutler Platelet mean volume (Bld) [Entitic vol] 11.0 fL Normal 9.5-13.5 [facility] Comment on above: Performed By: #### C BC #### [facility] [address] [address] [address] Rich Cutler PLT 272 103/ul Normal 150-450 [facility] Comment on above: Performed By: #### C BC #### [facility] [address] [address] [address] Rich Cutler RBC 4.72 106/ul Normal 4.20-5.40 [facility] Comment on above: Performed By: #### C BC #### [facility] [address] [place] [address] Dr. Rich Cutler WBC 6.5 103/ul Normal 4.0-11.0 [facility] Comment on above: Performed By: #### C BC #### [facility] [address] [address] [address] Rich Cutler FREE THYROXINE INDEX T7on FTI 2.16 Normal 1.30-4.50 [facility] Comment on above: Performed By: #### L IPID, TSH, T7, CMP #### [facility] [address] [place] [address] Dr. Rich Cutler T3U 30.0 % Normal 30.0-39.0 [facility] Comment on above: Performed By: #### L IPID, TSH, T7, CMP #### [facility] [address] [place] [address] Dr. Rich Cutler T4 [Mass/Vol] 7.20 ug/dL Normal 4.80-13.90 [facility] Comment on above: Performed By: #### L IPID, TSH, T7, CMP #### [facility] [address] [place] [address] Dr. Rich Cutler GLYCOHEMOGLOBIN A1Con 2021 ADA RECOMMENDATION SEE BELOW Normal [facility] Comment on above: Result Comment: ADA RECOMMENDED LIMIT 4.0 - 6.0 ADA THERAPEUTIC TARGET < 7.0 ACTION SUGGESTED > 7.0 Performed By: #### A 1C #### [facility] [address] [address] [address] Rich Cutler Glucose [Mass/Vol] 128 mg/dL Normal [facility] Comment on above: Performed By: #### A 1C #### [facility] [address] [address] [address] Rich Cutler HbA1c (Bld) [Mass fraction] 6.1 % Normal 4.5-6.2 [facility] Comment on above: Performed By: #### A 1C #### [facility] [address] [address] [address] Rich Cutler IRONon 09-23-2022 Iron [Mass/Vol] 64.0 ug/dL Normal 50.0-170.0 [facility] Comment on above: Performed By: #### C VDTB #### [facility] [address] [address] [address] Rich Cutler LIPID PROFILEon 09-23-2022 CHOL-HDL RATIO NORM SEE BELOW Normal [facility] Comment on above: Result Comment: 3.3 - 4.4 LOW RISK 4.4 - 7.1 AVERAGE RISK 7.1 - 11.0 MODERATE RISK >11.0 HIGH RISK Performed By: #### L IPID, TSH, T7, CMP #### [facility] [address] [address] [address] Rich Cutler Cholesterol [Mass/Vol] 237 mg/dL Critically high <=200 [facility] Comment on above: Performed By: #### L IPID, TSH, T7, CMP #### [facility] [address] [address] [address] Rich Cutler Cholesterol in HDL [Mass/Vol] 44 mg/dL Normal 40-60 [facility] Comment on above: Performed By: #### L IPID, TSH, T7, CMP #### [facility] [address] [address] [address] Rich Cutler Cholesterol in LDL [Mass/Vol] 172.2 mg/dL Normal [facility] Comment on above: Performed By: #### L IPID, TSH, T7, CMP #### [facility] [address] [address] [address] Rich Cutler Cholesterol.total/Ch olesterol in HDL [Mass ratio] 5.4 {ratio} Normal [facility] Comment on above: Performed By: #### L IPID, TSH, T7, CMP #### [facility] [address] [address] [address] Rich Cutler HDL NORMAL > or = 60 mg/dl - LO W CARDIOVASCULAR RISK <40 mg/dl - HIGH CARDIOVASCULAR RISK Normal [facility] Comment on above: Performed By: #### L IPID, TSH, T7, CMP #### [facility] [address] [address] [address] Rich Cutler LDL CALC NORMAL SEE BELOW Normal [facility] Comment on above: Result Comment: <100 mg/dl OPTIMAL 100 - 129 mg/dl NEAR OR ABOVE OPTIMAL 130 - 159 mg/dl BORDERLINE HIGH 160 - 189 mg/dl HIGH >190 mg/dl VERY HIGH Performed By: #### L IPID, TSH, T7, CMP #### [facility] [address] [address] [address] Rich Cutler Triglyceride [Mass/Vol] 104 mg/dL Normal <=150 [facility] Comment on above: Performed By: #### L IPID, TSH, T7, CMP #### [facility] [address] [address] [address] Rich Cutler VLDL CALC 20.8 mg/dL Normal [facility] Comment on above: Performed By: #### L IPID, TSH, T7, CMP #### [facility] [address] [address] [address] Rich Cutler PROF 14(COMP METB)on 022 Albumin [Mass/Vol] 3.5 g/dL Normal 3.4-5.0 [facility] Comment on above: Performed By: #### L IPID, TSH, T7, CMP #### [facility] [address] [address] [address] Rich Cutler Albumin/Globulin [Mass ratio] 0.9 {ratio} Normal [facility] Comment on above: Performed By: #### L IPID, TSH, T7, CMP #### [facility] [address] [place] [address] Dr. Rich Cutlre ALP [Catalytic activity/Vol] 93 U/L Normal 46-116 [facility] Comment on above: Performed By: #### L IPID, TSH, T7, CMP #### [facility] [address] [place] [address] Dr. Rich Cutler ALT [Catalytic activity/Vol] 44 U/L Normal 14-59 [facility] Comment on above: Performed By: #### L IPID, TSH, T7, CMP #### [facility] [address] [place] [address] Dr. Rich Cutler Anion gap [Moles/Vol] 8.5 mmol/L Normal [facility] Comment on above: Performed By: #### L IPID, TSH, T7, CMP #### [facility] [address] [place] [address] Dr. Rich Cutler AST [Catalytic activity/Vol] 26 U/L Normal 15-37 [facility] Comment on above: Performed By: #### L IPID, TSH, T7, CMP #### [facility] [address] [place] [address] Dr. Rich Cutler Bilirubin [Mass/Vol] 0.3 mg/dL Normal 0.2-1.0 [facility] Comment on above: Performed By: #### L IPID, TSH, T7, CMP #### [facility] [address] [place] [address] Dr. Rich Cutler Calcium [Mass/Vol] 9.0 mg/dL Normal 8.5-10.1 [facility] Comment on above: Performed By: #### L IPID, TSH, T7, CMP #### [facility] [address] [place] [address] Dr. Rich Cutler Chloride [Moles/Vol] 106 mmol/L Normal 98-107 [facility] Comment on above: Performed By: #### L IPID, TSH, T7, CMP #### [facility] [address] [address] [address] Rich Cutler CO2 [Moles/Vol] 31.0 mmol/L Normal 21.0-32.0 [facility] Comment on above: Performed By: #### L IPID, TSH, T7, CMP #### [facility] [address] [address] [address] Rich Cutler Creatinine [Mass/Vol] 1.11 mg/dL Critically high 0.55-1.02 [facility] Comment on above: Performed By: #### L IPID, TSH, T7, CMP #### [facility] [address] [address] [address] Rich Cutler EGFR-AF AUSTRIAN >60 Normal >=60 [facility] Comment on above: Performed By: #### L IPID, TSH, T7, CMP #### [facility] [address] [place] [address] Dr. Rich Cutler EGFR-NON AF AUSTRIAN 50 mL/min/1.73m2 Critically low >=60 [facility] Comment on above: Performed By: #### L IPID, TSH, T7, CMP #### [facility] [address] [place] [address] Dr. Rich Cutler Globulin (S) [Mass/Vol] 3.7 g/dL Normal [facility] Comment on above: Performed By: #### L IPID, TSH, T7, CMP #### [facility] [address] [place] [address] Dr. Rich Cutler Glucose [Mass/Vol] 121 mg/dL Critically high 74-106 T [facility] Comment on above: Performed By: #### L IPID, TSH, T7, CMP #### [facility] [address] [place] [address] Dr. Rich Cutler Potassium [Moles/Vol] 4.5 mmol/L Normal 3.5-5.1 [facility] Comment on above: Performed By: #### L IPID, TSH, T7, CMP #### [facility] [address] [place] [address] Dr. Rich Cutler Protein [Mass/Vol] 7.2 g/dL Normal 6.4-8.2 [facility] Comment on above: Performed By: #### L IPID, TSH, T7, CMP #### [facility] [address] [address] [address] Rich Cutler Sodium [Moles/Vol] 141 mmol/L Normal 136-145 [facility] Comment on above: Performed By: #### L IPID, TSH, T7, CMP #### [facility] [address] [address] [address] Rich Cutler Urea nitrogen [Mass/Vol] 16.0 mg/dL Normal 7.0-18.0 [facility] Comment on above: Performed By: #### L IPID, TSH, T7, CMP #### [facility] [address] [place] [address] Dr. Rich Cutler Urea nitrogen/Creatinine [Mass ratio] 14.4 mg/mg Normal [facility] Comment on above: Performed By: #### L IPID, TSH, T7, CMP #### [facility] [address] [address] [address] Rich Cutler TSHon 09-23-2022 TSH 3.915 uIU/mL Critically high 0.358-3.740 [facility] Comment on above: Performed By: #### L IPID, TSH, T7, CMP #### [facility] [address] [place] [address] Dr. Rich Cutler Physician Referralon 022 Physician Referral [phone] [id number] Normal [facility] Lipid Panelon 10-07-2021 Cholesterol [Mass/Vol] 205 mg/dL High 140-200 [facility] Comment on above: Result Comment: Chol less than 200 mg/dl low risk Chol 201-239 mg/dl borderline risk Chol 240 mg/dl and greater high risk Performed By: #### L IPID, [id number], TSH3 wRFLX #### [facility] [address] [place] [address] [place] Cholesterol in HDL [Mass/Vol] 25 mg/dL Low 35-85 [facility] Comment on above: Result Comment: HDL CHOL ATP-III CLASSIFICATION Cardiovascular Risk HDL > or equal to 60 mg/dL LOW HDL < 40 mg/dL HIGH Performed By: #### L IPID, [id number], TSH3 wRFLX #### [facility] [address] [place] [address] [facility] Cholesterol.total/Ch olesterol in HDL [Mass ratio] 8.2 {ratio} Normal <5.0 [facility] Comment on above: Performed By: #### L IPID, [id number], TSH3 wRFLX #### [facility] [address] [id number] [facility] LDL Cholesterol,Calculat ed 160 mg/dL High 0-100 [facility] Comment on above: Result Comment: LDL ATP III CLASSIFICATION LDL less than 100 mg/dL Optimal LDL 100-129 mg/dL Near or above optimal LDL 130-159 mg/dL Borderline high LDL 160-189 mg/dL High LDL greater than 189 mg/dL Very high Performed By: #### L IPID, [id number], TSH3 wRFLX #### [facility] [address] [id number] [facility] Triglyceride w/Reflex 100 mg/dL Normal 35-149 [facility] Comment on above: Result Comment: TRIG ATP III CLASSIFICATION TRIG less than 150 mg/dL Normal TRIG 150-199 mg/dL Borderline high TRIG 200-500 mg/dL High TRIG greater than 500 mg/dL Very high Standard traceable to the Center for Disease Conrtrol and Prevention (CDC) test method. Performed By: #### L IPID, [id number], TSH3 wRFLX #### [facility] [address] [place] [address] [facility] VLDL CHOLESTEROL 20 mg/dL Normal [facility] Comment on above: Performed By: #### L IPID, [id number], TSH3 wRFLX #### [facility] [address] [place] [address] [facility] Thyroid Stim Hormone w/Rflxo n 10-07-2021 Thyroid Stim Hormone w/Rflx 3.27 u[iU]/mL Normal 0.45-5.33 [facility] Comment on above: Performed By: #### L IPID, [id number], TSH3 wRFLX #### [facility] [address] [place] [address] [facility] Vitamin D 25 Hydroxy Totalon 10-07-2021 Vitamin D 25 Hydroxy Total 26.5 ng/mL Low 30-100 [facility] Comment on above: Result Comment: JACKELINE MIN D STATUS 25(OH)VITAMIN D RANGE (ng/mL) Deficient <20 Insufficient 20 to <30 Sufficient 30 to 100 Reference: Lanny MF,Gino NC, Dyan VALENZUELA, et al. Evaluation,treatment, and prevention of vitamin D deficiency; an Endocrine Society clinical practice guideline. JCEM. 2010; 96(7):1911-30. PERFORMED BY: [place] [address] PATHOLOGIST PSYCHOLOGIST COUNSELING SILVESTRE SCHULER M.D. Performed By: #### L IPID, [id number], TSH3 wRFLX #### [address] [address] [facility] Vital Signs Date Time Vital Sign Value Performing Clinician Deidre gagnon 10-06-2022 15:36-0500 Blood Pressure Location Umm MARTÍNEZ [facility] [place] 10-06-2022 15:36-0500 Diastolic blood pressure 86 mm[Hg] Umm MARTÍNEZ [facility] [place] 10-06-2022 15:36-0500 Heart rate 72 /min Umm MARTÍNEZ [facility] [place] 10-06-2022 15:36-0500 Respiratory rate 16 /min Umm MARTÍNEZ [facility] [place] 10-06-2022 15:36-0500 Systolic blood pressure 126 mm[Hg] Umm MARTÍNEZ [facility] [place] Encounters Encounter Date Encounter Type Care Provider Facility Start: 11-26-2022 Encounter for preprocedural laboratory examination DR UMM MARTÍNEZ . [facility] Start: 11-25-2022 End: 11-26-2022 ambulatory mUm MARTÍNEZ Facility:[id number] Start: 11-20-2022 End: 11-21-[address] UMM MARTÍNEZ . Facility:[facility] Start: 11-20-2022 End: 11-21-2022 Encounter for preprocedural laboratory examination DR UMM MARTÍNEZ . Facility: Start: 10-06-2022 End: 10-07-2022 ambulatory Umm MARTNÍEZ Facility:[facility] Start: 10-06-2022 End: 10-06-2022 Patient encounter procedure Umm MARTÍNEZ General Surgery [facility] Start: 10-02-2022 End: 10-03-[address] KENDRA MURILLO . Facility: Start: 09-30-2022 End: 10-01-[address] KENDRA MURILLO . Facility: Start: 09-28-2022 Encounter for genera l adult medical examination without abnormal findings DR KENDRA MURILLO . [facility] Start: 09-24-2022 End: 09-24-[address] SYBIL [...] Immunization Date Immunization Notes Care Provider [facility] 04-14-2021 SARS-CoV-2 (COVID-19 ) mRNA BNT-162b2 vax Umm MARTÍNEZ [facility] [place] 03-11-2021 SARS-CoV-2 (COVID-19 ) mRNA BNT-162b2 vax Umm MARTÍNEZ [facility] [place] Payers Date Payer Category Payer Unknown [id number] 2.16.8 [id number] 1965 Unknown [id number] 2.16.8 [id number] 1965 Unknown [id number] 2.16.84 [id number] 1965 Unknown [id number] 2.16.84 [id number] 1965 Unknown [id number] 2.16.84 [id number] 1964 Unknown [id number] 2.16.84 [id number] 1964 Unknown [id number] 2.16.84 [id number] 1965 Unknown [id number] 2.16.84 [id number] 1965 Unknown [id number] 2.16.84 [id number] 1960 Self-pay [id number] 1960 Unknown [id number] Social History Date Type Detail Facility Start: 10-06-2022 Tobacco smoking status Ex-smoker (fi nding) [facility] [place] Tobacco smoking status Never [facility] [place] Sex Assigned At Female [facility] Functional Status Date Assessment Result Facility 10-06-2022 Functional Status N/A [facility] [place] Clinical Note 11-25-2022 Note Date & Type [...] 10 years. CC: Kendra Murillo M.D. [facility] Clinical Note 10-11-2022 Note Date & [...] 1 tab(s), Oral, (more content not included)... [facility] Comment on above: Result Comment: Elec tronically Signed By: DIPESH BUCKNER, Umm Hogan\Date and Time Signed: 10/11/22 11:01 EST Evaluation + Plan note Note Date & Type Note Facility Evaluation + Plan note No data available for this section [facility] [place] [facility] Discharge instructions Note Date & Type Note Facility Hospital Discharge instructions No data available for this section [facility] [place] Progress note Note Date & Type Note Facility Progress note No data available for this section [facility] [place] Summary Purpose Family History No Family History Records FoundNo Family History Records FoundNo Family History Records Found Advance Directives No Advanced Directives Records FoundNo Advanced Directives Records FoundNo Advanced Directives Records Found Additional Source Comments INFORMATION SOURCE (unrecogn ized section and content) DATE CREATED AUTHOR 12/17/2021 [facility] DATE CREATED AUTHOR AUTHOR'S ORGANIZ ATION 12/16/2022 [facility] DATE CREATED AUTHOR AUTHOR'S ORGANIZ ATION 03/[facility]2023 [facility] team informatio n (unrecognized section and content) Personnel Name: Kendra Murillo MD Address: Address: [address] [place] [address] Personnel Name: Kendra Murillo MD Address: Address: [address] [place] [address] FOR RECORDS PERTAINING TO PATIENTS WHO ARE [...] BE BASED ON THE PRIMARY CLINICAL RECORDS. [facility]. provides no warranty or guarantee of the accuracy or completeness of information in this document.
[2024-04-22] MEDS: CALCIUM CARBONATE 500 MG (200MG ELEMENTAL) TAB CHEW PO (00:59)
[2024-04-22] MEDS: QUETIAPINE FUMARATE 25 MG TABLET PO ×3 (01:11→21:10)
[2024-04-22] MEDS: ACETAMINOPHEN 325 MG TABLET 650 MG PO ×2 (03:18→21:10)
[2024-04-22] MEDS: LORAZEPAM 0.5 MG TABLET 0.25 MG PO (03:47)
--- NOTE | 2024-04-22 04:07 | PC.NURSE ---
Patient c/o heart palpitations, severe h/a and chest pressure in the epigastric area. Her blood pressure became very labile on the Cardene drip also. Bp would fluctuate from 177/81 to 114/81 in a matter of a few minutes.Received orders from Lin ALMAGUER to stop Cardene and give hydralazine ivp for elevated bp. Tylenol for H/A. Received orders for ativan po and extra dose of seroquel 25mg to help Patient rest.
[2024-04-22 04:24] LABS: Hematocrit 39.3 % (36.0-48.0); Hemoglobin 12.8 g/dL (12.0-16.0); Mean Corpuscular HGB Conc 32.6 g/dL (29.9-35.2); Mean Corpuscular Hemoglobin 27.2 pg (26.7-34.0); Mean Corpuscular Volume 83.6 fL (81.0-99.0); Mean Platelet Volume 10.3 fL (9.5-13.5); Platelet Count 235 10^3/uL (150-450); Red Cell Distribution Width 14.2 % (11.0-15.0); White Blood Count 8.4 10^3/uL (4.0-11.0)
[2024-04-22 04:33] LABS: Estimated Average Glucose 131 mg/dL; Glycohemoglobin A1C 6.2 % (4.5-6.2)
[2024-04-22 04:47] LABS: Anion Gap 10.6; BUN Creatinine Ratio 14.1; Carbon Dioxide 27.7 mmol/L (21.0-32.0); Chloride 103 mmol/L (98-107); Chol HDL Ratio 4.2; Cholesterol 188 mg/dL (<=200); Estimated GFR (African America >60 (>=60); Estimated GFR (Non-African Ame >60 (>=60); Glucose 113 mg/dL (74-106); HDL Cholesterol 45 mg/dL (40-60); LDL Cholesterol Calculated 127.8 mg/dL; Potassium 3.3 mmol/L (3.5-5.1); Sodium 138 mmol/L (136-145); Thyroid Stimulating Hormone 3.812 uIU/mL (0.358-3.740); Triglycerides 76 mg/dL (<=150); Troponin I High Sensitivity 14.3 pg/mL (4.0-51.3); VLDL CHOLESTEROL 15.2 mg/dL
--- NOTE | 2024-04-22 06:00 | ECG_ITS ---
[facility] Test Date: 2024-04-22 Pat Name: MILAN RASMUSSEN Department: Room: 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
[2024-04-22 08:36] LABS: Glucometer 113 mg/dL (74-106)
[2024-04-22] MEDS: FUROSEMIDE 40 MG TABLET PO (09:37)
[2024-04-22] MEDS: AMLODIPINE BESYLATE 5 MG TABLET PO (09:37)
[2024-04-22] MEDS: ASPIRIN 81 MG TABLET.DR PO (09:37)
[2024-04-22] MEDS: ENOXAPARIN SODIUM 40 MG/0.4 ML SYRINGE SUBQ (09:37)
[2024-04-22] MEDS: METOPROLOL TARTRATE 100 MG TABLET PO ×2 (09:37→21:10)
--- NOTE | 2024-04-22 11:36 | P.HP_ITS ---
HPI H&P: HPI History of Present Illness Chief complaint: uncontrolled hypertension Narrative: 58 y o female with hx of HTN - presented to ED because of headache, shortness of breath and elevated blood pressure. she normally does not check her blood pressure. She felt a little different and was not sure what was wrong so decided to check her BP at home which was elevated upto 170. She denies chest pain or pressure but felt that she could not breath and felt short of breath. Upon arriv al to ED - her SBP was as high as 230. She was treated with IV labetaolol and hydralazine and later on admitted to ICU on cardene drip. Overnight she became hypotensive on it and it was discontinued as a result. Her BP this morning is reasonably at goal. She feels like she is developing a mild headache and also feels she can't catch her breath. She denies chest pain/palpitations or any neurological signs and symptoms. Opioid HPI Opioid Management Most Recent Opioid Data: Last Pain Scale 10 04/22/24 03:18 Last Pain Assessment 04/22/24 11:00 Last MAR Pain Assessment 04/22/24 05:15 Last ORT Total Score 0 04/22/24 01:02 Last ORT Risk Category Low Risk 04/22/24 01:02 Review of Systems ROS Status of ROS 10 or more systems reviewed and unremark able except as noted in history and below [facility] Medical History (Updated 04/22/24 @ 11:46 by Shaikh Marco Antonio MD) Irritable bowel syndrome ?K58.9 - Irritable bowel syndrome without diarrhea (ICD-10) H/O nephrolithotomy with removal of calculi ?Z98.890 - Other specified postprocedural states (ICD-10) ?Z87.442 - Personal history of urinary calculi (ICD-10) Kidney stone ?N20.0 - Calculus of kidney (ICD-10) Sepsis ?A41.9 - Sepsis, unspecified organism (ICD-10) H/O angiography ?Z92.89 - Personal history of other medical treatment (ICD-10) Lung nodule ?R91.1 - Solitary pulmonary nodule (ICD-10) Anxiety ?F41.9 - Anxiety disorder, unspecified (ICD-10) HTN (hypertension) ?I10 - Essential (primary) hypertension (ICD-10) Diabetes ?E11.9 - Type 2 diabetes mellitus without complications (ICD-10) TIA (transient ischemic attack) ?G45.9 - Transient cerebral ischemic attack, unspecified (ICD-10) Surgical History (Updated 04/22/24 @ 01:20 by Stalin Kevin) History of appendectomy ?Z90.49 - Acquired absence of other specified parts of digestive tract (ICD- 10) H/O tubal ligation ?Z98.51 - Tubal ligation status (ICD-10) History of cholecystectomy ?Z90.49 - Acquired absence of other specified parts of digestive tract (ICD- 10) Family History (Updated 04/22/24 @ 01:15 by Stalin Kevin) Mother Family history of cancer Father MVA (motor vehicle accident) Brother Family history of stroke Social History (Updated 04/22/24 @ 01:26 by Stalin Kevin) Within the past year, how often did you have a drink containing alcohol: never Within the past year, how often did you have six or more drinks on one occasion: never Score interpretation: A score less than 3 is consistent with normal alcohol consumption. Smoking status: Former smoker Second hand tobacco smoke exposure: No Non-prescribed substance use: denies use Previous occupational history: no Known occupational exposures/hazards: No Highest level of school completed/degree received: high school graduate Do you want help with school or training: No Are you now , , , , never or living with a partner: In a typical week, how many times do you talk on the telephone with family, friends, or neighbors: 3 or more times per week How often do you get together with friends or relatives: 3 or more times per week How often do you attend caodaism or christian services: never Do you belong to any clubs or organizations such as caodaism groups unions, fraternal or athletic groups, or school groups: no Total score: 1 Score interpretation: A score of less than or equal to 1 indicates the most socially isolated. Little interest or pleasure in doing things: not at all Feeling down, depressed, or hopeless: not at all Feel stressed/tense/nervous/anxious/difficulty sleeping: not at all Gender Identity: female Meds Home Medications and Allergies Home Medications ?Medication ?Instructions ?Recorded ?Confirmed ?Type metoprolol tartrate 100 mg tablet 100 mg PO Q12H 08/13/23 04/21/24 History metformin 500 mg tablet 500 mg PO BID 04/21/24 04/21/24 History quetiapine 25 mg tablet 25 mg PO BEDTIME 04/21/24 04/21/24 History aspirin 81 mg capsule 81 mg PO DAILY 04/22/24 04/22/24 History furosemide 20 mg tablet (Lasix) 20 mg PO DAILY 04/22/24 04/22/24 History lorazepam 0.5 mg tablet (Ativan) 0.25 mg PO Q8H PRN panic attack(s) 04/22/24 04/22/24 History Allergies Allergy/AdvReac Type Severity Reaction Status Date / Time alprazolam [From Xanax] AdvReac Severe Watery Eye Verified 04/22/24 03:41 Exam Constitutional Vital Signs, click to edit/add: Last Vital Signs Temp 97.6 F 04/22/24 07:34 Pulse 74 04/22/24 10:00 Resp 14 04/22/24 07:34 BP 135/69 04/22/24 07:34 Pulse Ox 93 L 04/22/24 07:34 O2 Del Method Nasal Cannula 04/22/24 05:20 O2 Flow Rate 2 04/22/24 05:20 Documenting provider has reviewed patient's vital signs: yes Common normals: no apparent distress and oriented x3 General appearance: cooperative HENMT Common normals: normocephalic and head/scalp atraumatic Head and scalp: normocephalic and atraumatic Eye Common normals: conjunctivae normal and no scleral icterus Conjunctiva: conjunctiva(e) normal Respiratory Common normals: normal respiratory effort and clear to auscultation bilaterally Effort & inspection: able to speak in complete sentences Auscultation: clear to auscultation bilaterally Cardio Common normals: regular rate, S1 normal heart sound and S2 normal heart sound Rate: regular rate Heart sounds: S1 normal and S2 normal GI Common normals: Normal to inspection, nondistended, normoactive bowel sounds present, soft to palpation, non-tender and no hepatosplenomegaly Palpation: soft and no hepatosplenomegaly Extremity Common normals: no clubbing, cyanosis or edema Neuro Common normals: oriented x3, moves all extremities and no focal motor deficits Psych Common normals: mental status grossly normal, denies hallucinations, denies homicidal ideation and denies suicidal ideation Results Labs Labs: Short CBC 04/21/24 04/22/24 Range/Units 19:30 04:16 WBC 8.0 8.4 (4.0-11.0) 10^3/uL Hgb 13.8 12.8 (12.0-16.0) g/dL Hct 44.0 39.3 (36.0-48.0) % Plt Count 264 235 (150-450) 10^3/uL BMP 04/21/24 04/22/24 19:30 04:16 Sodium 138 138 Potassium 3.5 3.3 L Chloride 101 103 Carbon Dioxide 25.8 27.7 BUN 16.0 13.0 Creatinine 1.16 H 0.92 Glucose 144 H 113 H Calcium 8.8 9.0 Assessment and Plan Assessment and Plan (1) Hypertensive emergency: Assessment and Plan: Required IV cardene overnight. Stopped earlier morning because of hypotensive. Resumed oral lopressor. Added norvasc. Monitor BP closely. (2) Shortness of breath: Assessment and Plan: Patient feels short of breath and difficulty catching her breath. No effusion/Ptx or pneumonia on CTA Cardiomegaly - ordered ECHO. Trop x 2 negative. Order BNP, trop. Its quite possible that there is an element of underlying anxiety too. (3) HTN (hypertension): Assessment and Plan: Resumed oral lopressor. added norvasc Qualifiers: Hypertension type: primary hypertension Qualified Code(s): I10 - Essential (primary) hypertension (4) Diabetes: Assessment and Plan: ssi while inpatient. 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 Cardiomegaly noted. No pleural effusion (6) Headache: Assessment and Plan: Mild VALENZUELA, presented with HTN emergency. Ordered CTH to r/o acute intracranial pathology. No neurological signs or symptoms. Qualifiers: Headache type: unspecified Headache chronicity pattern: acute headache Intractability: not intractable Qualified Code(s): R51.9 - Headache, unspecified Plan Transfer to med-surg. Closely monitor BP, c/w close hemodynamic monitoring.
--- NOTE | 2024-04-22 11:41 | CT_ITS ---
The [address] [address] Patient Name: MILAN RASMUSSEN MRN: [id number] date: 1965 Sex: F Assigned Patient Location: ICU Current Patient Location: ICU Accession/Order Number: [id number] Exam Date: 04/22/2024 12:45 Report Date: 04/22/2024 20:40 At the request of: SHAIKH MALI Procedure: CT head/brain wo con EXAM: NONCONTRAST CT SCAN OF THE HEAD HISTORY: Headache. TECHNIQUE: Multiple axial images are taken from the level the vertex down to the base of the skull without the use of IV contrast. Images were then reconstructed in the sagittal and coronal planes. This exam was performed according to our departmental dose-optimization program which includes use of Automated Exposure Control, adjustment of the mA and/or kV according to patient size and/or use of iterative reconstruction technique. COMPARISON: None. FINDINGS: Brain Parenchyma: No intracranial mass. No intracranial hemorrhage. Nevarez-white matter within expected limits of normal for patient's age. Posterior fossa: Normal. Midline shift: None Extra-axial fluid collection: None Ventricles: Normal. Mastoid air cells: Normal. Sinuses: Normal. Cranium: No depressed skull fracture. Soft tissues: Normal. Orbits: Normal. CT/CT head/brain wo con IMPRESSION: 1. No noncontrast CT evidence for acute intracranial pathology. 2. If patient continues to have symptoms or if there remains any further clinical concern, MRI may help better delineate if clinically indicated. Electronically authenticated by: VEENA CASTORENA Date: 04/22/2024 20:40
[2024-04-22] MEDS: POTASSIUM CHLORIDE 10 MEQ ER TABLET 40 MEQ PO (12:00)
[2024-04-22 12:04] LABS: Glucometer 96 mg/dL (74-106)
[2024-04-22] MEDS: HYDRALAZINE HCL 20 MG/ML VIAL 10 MG IVP (12:05)
[2024-04-22 12:31] LABS: Troponin I High Sensitivity 15.3 pg/mL (4.0-51.3)
[2024-04-22 18:21] LABS: Glucometer 116 mg/dL (74-106)
[2024-04-22 20:45] LABS: Glucometer 137 mg/dL (74-106)
[2024-04-23] VITALS (8 sets, daily range): BP systolic 151; BP diastolic 62; PULSE 53–71; TEMP 36.4; O2SAT 95–96
[2024-04-23 05:38] LABS: Basophils Absolute Auto 0.1 10^3/uL (0.0-0.1); Eosinophils Absolute Auto 0.3 10^3/uL (0.0-0.7); Eosinophils Percent Auto 3.7 % (0.9-7.0); Hematocrit 41.5 % (36.0-48.0); Immature Granulocytes Abs Auto 0.01 10^3/uL (0.00-0.03); Immature Granulocytes Pct Auto 0.1 % (0.0-0.5); Lymphocytes Absolute Auto 3.1 10^3/uL (1.2-3.8); Lymphocytes Percent Auto 43.1 % (20.5-60.0); Mean Corpuscular HGB Conc 31.3 g/dL (29.9-35.2); Mean Corpuscular Volume 86.1 fL (81.0-99.0); Mean Platelet Volume 11.6 fL (9.5-13.5); Monocytes Absolute Auto 0.5 10^3/uL (0.3-0.8); Monocytes Percent Auto 7.1 % (1.7-12.0); Neutrophils Absolute Auto 3.3 10^3/uL (1.4-6.5); Platelet Count 234 10^3/uL (150-450); Red Blood Count 4.82 10^6/uL (4.20-5.40); Red Cell Distribution Width 14.6 % (11.0-15.0); White Blood Count 7.3 10^3/uL (4.0-11.0)
[2024-04-23 05:54] LABS: Alanine Aminotransferase 50 U/L (14-59); Albumin Globulin Ratio 0.9; Albumin Level 3.3 g/dL (3.4-5.0); Alkaline Phosphatase 85 U/L (46-116); Anion Gap 12.2; Aspartate Amino Transferase 25 U/L (15-37); Bilirubin Total 0.5 mg/dL (0.2-1.0); Calcium 8.8 mg/dL (8.5-10.1); Carbon Dioxide 25.3 mmol/L (21.0-32.0); Chloride 101 mmol/L (98-107); Estimated GFR (African America >60 (>=60); Estimated GFR (Non-African Ame 54 (>=60); Globulin 3.5 g/dL; Glucose 93 mg/dL (74-106); Magnesium 2.4 mg/dL (1.8-2.4); Potassium 3.5 mmol/L (3.5-5.1); Sodium 135 mmol/L (136-145); Total Protein 6.8 g/dL (6.4-8.2); Troponin I High Sensitivity 41.4 pg/mL (4.0-51.3)
--- NOTE | 2024-04-23 09:32 | P.DS_ITS ---
DS: Providers Provider Date of admission: 04/22/24 00:49 Primary care physician: Carlito Murillo MD Consults: 04/22/24 07:00 Consult to Cardiology Routine Reason for consultation: Hupertensive urgency Has provider been notified: No DS: Diagnosis Discharge Diagnosis (1) Hypertensive emergency: (2) Shortness of breath: (3) HTN (hypertension): Qualifiers: Hypertension type: primary hypertension Qualified Code(s): I10 - Essential (primary) hypertension (4) Diabetes: Qualifiers: Diabetes mellitus complication status: without complication Diabetes mellitus mcfp insulin use: without 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 inspector use Diabetes mellitus type: type 2 Qualified Code(s): E11.9 - Type 2 diabetes mellitus without complications (5) Elevated d-dimer: (6) Headache: Qualifiers: Headache chronicity pattern: acute headache Headache type: unspecified Intractability: not intractable Qualified Code(s): R51.9 - Headache, unspecified Plan Hypertensive emergency: Improved at the time of DC Mild bradycardia: Improved at the time of D/C Hyponatremia - mild - Follow as outpt Mild PORTILLO with Creatinine 10% above baseline - elevated at d/c Mild hypothyroidism with borderline elevated TSH - Shortness of breath: resolved at the time of D/C Cardiomegaly: Stable at the time of D/C HTN (hypertension): Improved at the time of D/C Diabetes: Stable at the time of D/C Elevated d-dimer: CTA Negative Headache: Resolved at the time of D/C DS: Summary Hospital Course Hospital Course: Pt presented to ER with headache and dyspnea. + D Dimer - cta neg, troponin normal, BP significantly elevated. With resp distress, and headache, Critera for hypertensive emergency. Placed on cardene with good effect. Weaned off that, better with the amlodipine and home meds. This am Headache resolved, QURESHI resolved. Feels back to noramal self. Plan is for D/C to home and see me in the office this week. Medications see list. Status at Discharge Overall status at discharge: patient is back to baseline Time Spent with Patient Time attestation: Total time spent providing and/or coordinating discharge services: Time spent: greater than 30 minutes Exam Constitutional Vital Signs, click to edit/add: Last Vital Signs Temp 97.6 F 04/23/24 01:15 Pulse 63 04/23/24 08:00 Resp 16 04/23/24 04:00 BP 151/62 H 04/23/24 01:15 Pulse Ox 95 04/23/24 05:30 O2 Del Method Room Air 04/23/24 05:30 O2 Flow Rate 2 04/22/24 05:20 Documenting provider has reviewed patient's vital signs: yes Common normals: no apparent distress [facility] Common normals: normocephalic Chest Common normals: inspection of chest normal Respiratory Common normals: normal respiratory effort and no retractions Cardio Common normals: regular rate, regular rhythm and no murmurs GI Common normals: Normal to inspection, nondistended, normoactive bowel sounds present Extremity Common normals: normal to inspection Neuro Common normals: oriented x3 and CN's II-XII intact bilaterally DS: Data Data Completed and Pending Labs on day of discharge: Labs from last 24 hours 04/23/24 04/22/24 04/22/24 04:01 20:45 18:18 WBC 7.3 RBC 4.82 Hgb 13.0 Hct 41.5 MCV 86.1 MCH 27.0 MCHC 31.3 RDW 14.6 Plt Count 234 MPV 11.6 Neut % (Auto) 45.0 Lymph % (Auto) 43.1 [place] % (Auto) 7.1 Eos % (Auto) 3.7 Baso % (Auto) 1.0 Neut # (Auto) 3.3 Lymph # (Auto) 3.1 [place] # (Auto) 0.5 Eos # (Auto) 0.3 Baso # (Auto) 0.1 Abs Immat Gran (auto) 0.01 Imm/Tot Granulo (auto) 0.1 Sodium 135 L Potassium 3.5 Chloride 101 Carbon Dioxide 25.3 Anion Gap 12.2 BUN 20.0 H Creatinine 1.05 H Est GFR ( Amer) >60 Est GFR (Non-Af Amer) 54 L BUN/Creatinine Ratio 19.0 Glucose 93 Calcium 8.8 Magnesium 2.4 Total Bilirubin 0.5 AST 25 ALT 50 Alkaline Phosphatase 85 Troponin I High Sens 41.4 NT-Pro-B Natriuret Pep Total Protein 6.8 Albumin 3.3 L Globulin 3.5 Albumin/Globulin Ratio 0.9 POC Glucose 137 H 116 H 04/22/24 04/22/24 12:03 04:16 WBC RBC Hgb Hct MCV MCH MCHC RDW Plt Count MPV Neut % (Auto) Lymph % (Auto) [place] % (Auto) Eos % (Auto) Baso % (Auto) Neut # (Auto) Lymph # (Auto) [place] # (Auto) Eos # (Auto) Baso # (Auto) Abs Immat Gran (auto) Imm/Tot Granulo (auto) Sodium Potassium Chloride Carbon Dioxide Anion Gap BUN Creatinine Est GFR ( Amer) Est GFR (Non-Af Amer) BUN/Creatinine Ratio Glucose Calcium Magnesium Total Bilirubin AST ALT Alkaline Phosphatase Troponin I High Sens 15.3 NT-Pro-B Natriuret Pep 450.0 Total Protein Albumin Globulin Albumin/Globulin Ratio POC Glucose 96 Discharge Plan Discharge Disposition: Home, Self-Care Condition: Good Discharge Medications: New amlodipine 5 mg Tablet 5 mg PO QD Qty: 30 11RF Continued metoprolol tartrate 100 mg tablet 100 mg PO Q12H metformin 500 mg tablet 500 mg PO BID quetiapine 25 mg tablet 25 mg PO BEDTIME lorazepam [Ativan] 0.5 mg tablet 0.25 mg PO Q8H PRN (Reason: panic attack(s)) Patient Comments: Takes 0.25 mg when she has panic attacks and can take additional 0.25 mg if needed aspirin 81 mg capsule 81 mg PO DAILY furosemide [Lasix] 20 mg tablet 20 mg PO DAILY Activity: increase activity as tolerated Print Language: Bengali Patient Instructions: Amlodipine (By mouth), Hypertensive Crisis (DC) Forms: Portal Instructions Follow Up Appointments: Please call on Wednesday04/24/2024 to schedule follow up with Dr. Murillo's office this week. Discharge Date/Time: 04/23/24 11:05
[2024-04-23] MEDS: METOPROLOL TARTRATE 100 MG TABLET PO (10:31)
[2024-04-23] MEDS: FUROSEMIDE 20 MG TABLET PO (10:31)
[2024-04-23] MEDS: ASPIRIN 81 MG TABLET.DR PO (10:31)
[2024-04-23] MEDS: AMLODIPINE BESYLATE 5 MG TABLET PO (10:31)
[2024-04-23 10:37] LABS: Glucometer 100 mg/dL (74-106)
--- NOTE | 2024-04-24 15:20 | CM.DCFOLLOWU ---
Person spoke with: patient How are you feeling? well How is your pain? none Did you understand your discharge instructions? yes Do you have any questions about your discharge instructions? no Were you given any prescriptions at discharge? yes Were you able to get your prescriptions filled? yes Do you understand how to take your medications as ordered? yes Do you have any questions about your follow up appointment and do you plan to keep your follow up appointment? no questions, follow up 04/28/[address] Murillo Is there anything else that you would like to discuss? no Questions/Comments/Concerns/Other: N/A
== END 2024-04-23 11:05 | disposition home or self-care (01) | DRG 199 ==
LOC: ER 23:19 → ICU 04-22 00:52
PROVIDERS: Internal Medicine; Registered Nurse; Admitting Provider Family Medicine; Emergency Provider Emergency Medicine; PCP Family Medicine; Visit Provider Family Medicine
DX: I16.1 Hypertensive emergency (principal); Z87.891 Personal history of nicotine dependence; R06.02 Shortness of breath; E11.9 Type 2 diabetes mellitus without complications; R79.89 Other specified abnormal findings of blood chemistry; R51.9 Headache, unspecified; Z90.49 Acquired absence of other specified parts of digestive tract; Z98.51 Tubal ligation status; Z86.73 Personal history of transient ischemic attack (TIA), and cerebral infarction without residual deficits; R91.1 Solitary pulmonary nodule; F41.9 Anxiety disorder, unspecified; I11.9 Hypertensive heart disease without heart failure; Z87.442 Personal history of urinary calculi; R00.1 Bradycardia, unspecified; E87.1 Hypo-osmolality and hyponatremia; N17.9 Acute kidney failure, unspecified; R06.03 Acute respiratory distress; Z79.84 Long term (current) use of oral hypoglycemic drugs; Z79.82 Long term (current) use of aspirin; E03.9 Hypothyroidism, unspecified
CPT/HCPCS: 36415; 70450; 71045; 71275; 80048; 80053; 80061; 82948; 83036; 83735; 83880; 84443; 84484; 85025; 85027; 85378; 93005; 94761; 96372; 96374; 96375; 96376; 99285; Q9967

== ENCOUNTER 2024-05-19 08:08 | Outpatient (OUT) | payer MEDICAID, SELFPAY ==
--- NOTE | 2024-05-19 | PCN_ITS ---
CARDIAC STRESS TEST Requesting Physician: Carlito Murillo M.D. Procedure Date: 05/19/2024 PERFORMING PROVIDER: Eleanor Bustos M.D. INDICATION: Hypertension. STRESS TEST PROTOCOL: Treadmill stress test with nuclear myocardial perfusion imaging. PROTOCOL: Jeferson. HEART RATE RESTIN beats per minute MAX HEART RATE: 137 beats per minute PEAK MAXIMAL HEART RATE PERCENTAGE: 85% RESTING BLOOD PRESSURE: 180/78 MAXIMAL BLOOD PRESSURE: 190/80 EXERCISE TIME: 5 minutes 7 seconds STAGE REACHED: 2 METS: 7 ST CHANGES: Significant horizontal downsloping ST depression. SYMPTOMS: Shortness of breath, chest tightness, fatigue. ARRHYTHMIAS: PVCs, PACS, bigeminy, couplets. CONCLUSIONS: 1. Patient?s resting EKG demonstrates sinus bradycardia with ST and T-wave abnormality, concerning for possible inferolateral ischemia. This is an abnormal EKG. 2. Patient had abnormal resting blood pressure of 180/78. 3. Patient with significant horizontal downsloping ST depression in multiple leads suggestive of ischemia. 4. Clinical correlation advised. 5. Please refer to separately reported and interpreted nuclear myocardial perfusion imaging. MTDD
--- NOTE | 2024-05-19 08:00 | NM_ITS ---
Patient Name: MILAN RASMUSSEN MR#: [id number] : 1965 Exam Date: 05/19/2024 Ordering Doctor: DR Carlito Murillo . RADIOLOGY REPORT PROCEDURE: NM GUNNAR PERF SPECT REST STR COMPARISON: None. INDICATIONS: HYPERTENSION TECHNIQUE: Exam Description: Stress/Rest one day protocol gated SPECT Rest Imagin.4 mCi Tc-99m Cardiolite IV on 05/19/2024 Stress Imaging 30.2 mCi Tc-99m Cardiolite IV on 05/19/2024 Exercise Protocol: Jeferson Heart Rate (bpm): Rest: 51 Max: 137 PMHR: 85 Blood Pressure: Rest: 180/78 Max: 190/80 Exercise Time: Minutes: 5 Seconds: 07 Stage Reached: Stage: 2 Mets 7.0 Symptoms: Rest and peak stress ECG findings were pending and the exercise portion of the study was pending per attending physician Dr. WALDRON . For more details please see separate cardiac stress test report. FINDINGS: QUALITY OF STUDY: Good. PERFUSION DEFECT: None. LOCATION: N/A SIZE: N/A. SEVERITY: N/A. TYPE: N/A. WALL MOTION: Normal. LV SIZE: Normal. 86 mL. TID / TCD: None; 0.9 LVEF: Normal. Calculated EF 72%. SUMMARY: Myocardial perfusion imaging study is NORMAL. CONCLUSION: 1. Normal myocardial profusion scan 2. Pending exercise test results Dictated by: Andres Lezama MD on 05/19/2024 at 13:25 Approved by: Andres Lezama MD on 05/19/2024 at 13:26
--- OUTSIDE RECORDS SUMMARY | 2024-05-19 08:12 | XMS_ITS | CCD ---
Author Organization [facility] Care Team Providers Care Physician Surgeon Name Role Phone Kendra Murillo Primary Care [...] HOY ., DR GARDNER Primary Care Unavailable [place], DR ADELIA Medrano Consulting Unavailable Allergies Allergy Classification Reported Allergen(s) Allergy Type Date of Onset Reaction(s) Facility (1 source) No Known Medication Allergies; 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: [No Known Medication Allergies] Propensity to adverse reactions (disorder) [facility] Repository Medications Current Medications Medication Drug [...] Coronary arteriosclerosis; 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: [Atherosclerotic heart disease of hughes coronary artery without angina pectoris] Onset: 11-26-2022 [...] 11-26-2022 12-20-2019 Episodic Other aftercare (1 source) residential (current) use of aspirin; 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: [CORRECTION CURRENT USE OF ASPIRIN] Onset: 11-26-2022 Episodic Other aftercare (1 source) Other longterm (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 therapy; 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: [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 Normal [facility] Lab Reportson 11-24-2022 Lab Reports [id number] .00CD:127 Normal [facility] Covid-19 PCR ([facility])on 10-24 SARS-CoV-2 (COVID-19) RNA BECK+probe Ql (Unsp spec) Not detected Normal NOT DETECTED [facility] Comment on above: Result Comment: This test is not yet approved or cleared by the [place] FDA. When there are no FDA-approved or cleared tests available, and other criteria are met, FDA can make tests available under an emergency access mechanism called an Emergency Use Authorization (EUA). The EUA for this test is supported by the Gate Supervisor of Health and Human Service's (HHS's) declaration [...] consistent with SARS-CoV-2. Performed By: #### [facility] #### [facility] [address] [address] [address] Rich Cutler Consent for Procedure/Surger yon 10-07-2022 Consent for Procedure/Surgery [id number] .00CD:127 Normal [facility] Ambulatory Visit Summaryon 1 12-06-2021 Ambulatory [...] Allergic conjunctivitis Anticoagulated Kidney stones Normal [facility] VC VENOUS REFLUX NINO LMTon 1 12-02-2021 VC VENOUS REFLUX NINO LMT Patient: MILAN RASMUSSEN Exam Date: 10/02/2022 : 1965 Gender:F Ordering : DR KENDRA MURILLO . Admission #: [id number] Family : Order #: [id number] CLICK HERE TO VIEW EXAM RADIOLOGY REPORT [...] chronic thrombus visualized Compressibility: Normal Flow: Normal Elocution Teacher: Dist/med calf 3.3mm with 0s reflux. Tech Note: Incompetent SFJ and GSV. Patent varicose vein mid/med calf 2.9mm with 0s reflux. Patent varicose vein prox/post calf 3.8mm with 0s reflux. Patent varicose vein dist/med thigh 3.8mm with 2.0s reflux. CONCLUSION: 1. Mild right and udbe-wo-hkhwvdtn left great saphenous vein venous insufficiency with dilatation 2. Left saphenous popliteal junction reflux 3. Mild left anterior accessory saphenous vein venous insufficiency without dilatation 4. Small bilateral incompetent varicose veins Dictated by: Adelia Lezama MD on 10/02/2022 at 13:36 Approved by: Adelia Lezama MD on 10/02/2022 at 13:52 Normal [facility] ECHOCARDIO M/2D COMPLETEon 1 11-30-2021 ECHOCARDIO M/2D COMPLETE Patient: MILAN RASMUSSEN Exam Date: 09/30/2022 : 1965 Gender:F Ordering : DR KENDRA MURILLO . Admission #: [id number] Family : Order #: [id number] CLICK HERE TO VIEW EXAM ECHOCARDIOGRAM REPORT [...] M.D. on 09/30/2022 at 18:37 Normal [facility] BNPon 09-24-2022 Natriuretic peptide B (Bld) [Mass/Vol] 501.0 pg/mL Normal <=900.0 [facility] Comment on above: Performed By: #### C VDTB #### [facility] [address] [place] [address] Dr. Rich Cutler CBC AUTO DIFFon 09-24-2022 BASO # 0.1 103/ul Normal 0.0-0.1 [facility] Comment on above: Performed By: #### C VDTBH #### [facility] [address] [place] [address] Dr. Rich Cutler Basophils/100 WBC (Bld) 0.8 % Normal 0.2-2.0 [facility] Comment on above: Performed By: #### C VDTBH #### [facility] [address] [place] [address] Dr. Rich Cutler EO # 0.3 103/ul Normal 0.0-0.7 [facility] Comment on above: Performed By: #### C VDTBH #### [facility] [address] [place] [address] Dr. Rich Cutler Eosinophils/100 WBC (Bld) 3.4 % Normal 0.9-7.0 [facility] Comment on above: Performed By: #### C VDTBH #### [facility] [address] [place] [address] Dr. Rich Cutler Erythrocyte distribution width (RBC) [Ratio] 13.3 % Normal 11.0-15.0 [facility] Comment on above: Performed By: #### C VDTBH #### [facility] [address] [place] [address] Dr. Rich Cutler Hematocrit (Bld) [Volume fraction] 40.5 % Normal 36.0-48.0 [facility] Comment on above: Performed By: #### C VDTBH #### [facility] [address] [place] [address] Dr. Rich Cutler Hemoglobin (Bld) [Mass/Vol] 13.1 g/dL Normal 12.0-16.0 [facility] Comment on above: Performed By: #### C VDTBH #### [facility] [address] [place] [address] Dr. Rich Cutler IG # 0.02 10e3/ul Normal 0.00-0.03 [facility] Comment on above: Performed By: #### C VDTBH #### [facility] [address] [place] [address] Dr. Rich Cutler IG % 0.3 % Normal 0.0-0.5 [facility] Comment on above: Performed By: #### C VDTBH #### [facility] [address] [place] [address] Dr. Rich Cutler LYMPH # 2.7 103/ul Normal 1.2-3.8 [facility] Comment on above: Performed By: #### C VDTBH #### [facility] [address] [place] [address] Dr. Rich Cutler Lymphocytes/100 WBC (Bld) 35.4 % Normal 20.5-60.0 [facility] Comment on above: Performed By: #### C VDTBH #### [facility] [address] [place] [address] Dr. Rich Cutler MANUAL DIFF REQ NO Normal [facility] Comment on above: Performed By: #### C VDTBH #### [facility] [address] [place] [address] Dr. Rich Cutler MCH (RBC) [Entitic mass] 28.2 pg Normal 26.7-34.0 [facility] Comment on above: Performed By: #### C VDTBH #### [facility] [address] [place] [address] Dr. Rich Cutler MCHC (RBC) [Mass/Vol] 32.3 g/dL Normal 29.9-35.2 [facility] Comment on above: Performed By: #### C VDTBH #### [facility] [address] [place] [address] Dr. Rich Cutler MCV (RBC) [Entitic vol] 87.3 fL Normal 81.0-99.0 [facility] Comment on above: Performed By: #### C VDTBH #### [facility] [address] [place] [address] Dr. Rich Cutler MONO # 0.5 103/ul Normal 0.3-0.8 [facility] Comment on above: Performed By: #### C VDTBH #### [facility] [address] [place] [address] Dr. Rich Cutler Monocytes/100 WBC (Bld) 6.5 % Normal 1.7-12.0 [facility] Comment on above: Performed By: #### C VDTBH #### [facility] [address] [place] [address] Dr. Rich Cutler NEUT # 4.1 103/ul Normal 1.4-6.5 [facility] Comment on above: Performed By: #### C VDTBH #### [facility] [address] [place] [address] Dr. Rich Cutler Neutrophils/100 WBC (Bld) 53.6 % Normal 43.0-75.0 [facility] Comment on above: Performed By: #### C VDTBH #### [facility] [address] [place] [address] Dr. Rich Cutler Platelet mean volume (Bld) [Entitic vol] 10.3 fL Normal 9.5-13.5 [facility] Comment on above: Performed By: #### C VDTBH #### [facility] [address] [place] [address] Dr. Rich Cutler PLT 283 103/ul Normal 150-450 [facility] Comment on above: Performed By: #### C VDTBH #### [facility] [address] [place] [address] Dr. Rich Cutler RBC 4.64 106/ul Normal 4.20-5.40 [facility] Comment on above: Performed By: #### C VDTBH #### [facility] [address] [place] [address] Dr. Rich Cutler WBC 7.6 103/ul Normal 4.0-11.0 [facility] Comment on above: Performed By: #### C VDTBH #### [facility] [address] [place] [address] Dr. Rich Cutler INSULINon 09-24-2022 Insulin 15.1 uIU/mL Normal 2.6-24.9 [facility] Comment on above: Performed By: #### C VDTBH #### [facility] [address] [place] [address] Dr. Rich Cutler PROF 14(COMP METB)on 022 Albumin [Mass/Vol] 3.5 g/dL Normal 3.4-5.0 [facility] Comment on above: Performed By: #### C VDTBH #### [facility] [address] [place] [address] Dr. Rich Cutler Albumin/Globulin [Mass ratio] 1.0 {ratio} Normal [facility] Comment on above: Performed By: #### C VDTBH #### [facility] [address] [place] [address] Dr. Rich Cutler ALP [Catalytic activity/Vol] 91 U/L Normal 46-116 [facility] Comment on above: Performed By: #### C VDTBH #### [facility] [address] [place] [address] Dr. Rich Cutler ALT [Catalytic activity/Vol] 47 U/L Normal 14-59 [facility] Comment on above: Performed By: #### C VDTBH #### [facility] [address] [place] [address] Dr. Rich Cutler Anion gap [Moles/Vol] 11.7 mmol/L Normal [facility] Comment on above: Performed By: #### C VDTBH #### [facility] [address] [place] [address] Dr. Rich Cutler AST [Catalytic activity/Vol] 24 U/L Normal 15-37 [facility] Comment on above: Performed By: #### C VDTBH #### [facility] [address] [place] [address] Dr. Rich Cutler Bilirubin [Mass/Vol] 0.2 mg/dL Normal 0.2-1.0 [facility] Comment on above: Performed By: #### C VDTBH #### [facility] [address] [place] [address] Dr. Rich Cutler Calcium [Mass/Vol] 8.9 mg/dL Normal 8.5-10.1 [facility] Comment on above: Performed By: #### C VDTBH #### [facility] [address] [place] [address] Dr. Rich Cutler Chloride [Moles/Vol] 105 mmol/L Normal 98-107 [facility] Comment on above: Performed By: #### C VDTBH #### [facility] [address] [place] [address] Dr. Rich Cutler CO2 [Moles/Vol] 28.1 mmol/L Normal 21.0-32.0 [facility] Comment on above: Performed By: #### C VDTBH #### [facility] [address] [place] [address] Dr. Rich Cutler Creatinine [Mass/Vol] 1.13 mg/dL Critically high 0.55-1.02 [facility] Comment on above: Performed By: #### C VDTBH #### [facility] [address] [place] [address] Dr. Rich Cutler EGFR-AF [place] 60 mL/min/1.73m2 Normal >=60 [facility] Comment on above: Performed By: #### C VDTBH #### [facility] [address] [address] [address] Rich Cutler EGFR-NON AF [place] 49 mL/min/1.73m2 Critically low >=60 [facility] Comment on above: Performed By: #### C VDTBH #### [facility] [address] [address] [address] Rich Cutler Globulin (S) [Mass/Vol] 3.5 g/dL Normal [facility] Comment on above: Performed By: #### C VDTBH #### [facility] [address] [place] [address] Dr. Rich Cutler Glucose [Mass/Vol] 119 mg/dL Critically high 74-106 [facility] Comment on above: Performed By: #### C VDTBH #### [facility] [address] [address] [address] Rich Cutler Potassium [Moles/Vol] 3.8 mmol/L Normal 3.5-5.1 [facility] Comment on above: Performed By: #### C VDTBH #### [facility] [address] [place] [address] Dr. Rich Cutler Protein [Mass/Vol] 7.0 g/dL Normal 6.4-8.2 [facility] Comment on above: Performed By: #### C VDTBH #### [facility] [address] [place] [address] Dr. Rich Cutler Sodium [Moles/Vol] 141 mmol/L Normal 136-145 [facility] Comment on above: Performed By: #### C VDTBH #### [facility] [address] [place] [address] Dr. Rich Cutler Urea nitrogen [Mass/Vol] 16.0 mg/dL Normal 7.0-18.0 [facility] Comment on above: Performed By: #### C VDTBH #### [facility] [address] [place] [address] Dr. Rich Cutler Urea nitrogen/Creatinine [Mass ratio] 14.2 mg/mg Normal [facility] Comment on above: Performed By: #### C VDTBH #### [facility] [address] [place] [address] Dr. Rich Cutler TROPONIN, HIGH SENSITIVITYon 09-24-2022 HSTROP 10.6 pg/mL Normal 4.0-51.3 [facility] Comment on above: Result Comment: CUT- OFF POINTS HAVE BEEN ESTABLISHED BASED ON THE FOURTH UNIVERSAL DEFINITIONS OF MYOCARDIAL INFARCTION. THE UPPER REFERENCE LIMIT (URL) OF TROPONIN, DEFINED THE 99TH PERCENTILE OF cTnI DISTRIBUTION IN A REFERENCE POPULATION, HAS BEEN CONFIRMED THE DECISION THRESHOLD FOR FL DIAGNOSIS. Performed By: #### C VDTBH #### [facility] [address] [place] [address] Dr. Rich Cutler XR CHEST 1 Von [...] [facility]MM [facility]MPHRIES Date: 2022-09-24 04:08 Normal [facility] CBC AUTO DIFFon 09-23-2022 BASO # 0.1 103/ul Normal 0.0-0.1 [facility] Comment on above: Performed By: #### C BC #### [facility] [address] [place] [address] Dr. Rich Cutler Basophils/100 WBC (Bld) 0.8 % Normal 0.2-2.0 [facility] Comment on above: Performed By: #### C BC #### [facility] [address] [place] [address] Dr. Rich Cutler EO # 0.2 103/ul Normal 0.0-0.7 [facility] Comment on above: Performed By: #### C BC #### [facility] [address] [place] [address] Dr. Rich Cutler Eosinophils/100 WBC (Bld) 3.5 % Normal 0.9-7.0 [facility] Comment on above: Performed By: #### C BC #### [facility] [address] [place] [address] Dr. Rich Cutler Erythrocyte distribution width (RBC) [Ratio] 13.4 % Normal 11.0-15.0 [facility] Comment on above: Performed By: #### C BC #### [facility] [address] [place] [address] Dr. Rich Cutler Hematocrit (Bld) [Volume fraction] 42.3 % Normal 36.0-48.0 [facility] Comment on above: Performed By: #### C BC #### [facility] [address] [place] [address] Dr. Rich Cutler Hemoglobin (Bld) [Mass/Vol] 13.4 g/dL Normal 12.0-16.0 [facility] Comment on above: Performed By: #### C BC #### [facility] [address] [place] [address] Dr. Rich Cutler IG # 0.03 10e3/ul Normal 0.00-0.03 [facility] Comment on above: Performed By: #### C BC #### [facility] [address] [place] [address] Dr. Rich Cutler IG % 0.5 % Normal 0.0-0.5 [facility] Comment on above: Performed By: #### C BC #### [facility] [address] [place] [address] Dr. Rich Cutler LYMPH # 2.9 103/ul Normal 1.2-3.8 [facility] Comment on above: Performed By: #### C BC #### [facility] [address] [place] [address] Dr. Rich Cutler Lymphocytes/100 WBC (Bld) 44.0 % Normal 20.5-60.0 [facility] Comment on above: Performed By: #### C BC #### [facility] [address] [place] [address] Dr. Rich Cutler MANUAL DIFF REQ NO Normal [facility] Comment on above: Performed By: #### C BC #### [facility] [address] [place] [address] Dr. Rich Cutler MCH (RBC) [Entitic mass] 28.4 pg Normal 26.7-34.0 [facility] Comment on above: Performed By: #### C BC #### [facility] [address] [place] [address] Dr. Rich Cutler MCHC (RBC) [Mass/Vol] 31.7 g/dL Normal 29.9-35.2 [facility] Comment on above: Performed By: #### C BC #### [facility] [address] [place] [address] Dr. Rich Cutler MCV (RBC) [Entitic vol] 89.6 fL Normal 81.0-99.0 [facility] Comment on above: Performed By: #### C BC #### [facility] [address] [place] [address] Dr. Rich Cutler MONO # 0.4 103/ul Normal 0.3-0.8 [facility] Comment on above: Performed By: #### C BC #### [facility] [address] [place] [address] Dr. Rich Ctuler Monocytes/100 WBC (Bld) 6.6 % Normal 1.7-12.0 [facility] Comment on above: Performed By: #### C BC #### [facility] [address] [place] [address] Dr. Rich Cutler NEUT # 2.9 103/ul Normal 1.4-6.5 [facility] Comment on above: Performed By: #### C BC #### [facility] [address] [place] [address] Dr. Rich Cutler Neutrophils/100 WBC (Bld) 44.6 % Normal 43.0-75.0 [facility] Comment on above: Performed By: #### C BC #### [facility] [address] [address] [address] Rich Cutler Platelet mean volume (Bld) [Entitic vol] 11.0 fL Normal 9.5-13.5 [facility] Comment on above: Performed By: #### C BC #### [facility] [address] [address] [address] Rich Cutler PLT 272 103/ul Normal 150-450 [facility] Comment on above: Performed By: #### C BC #### [facility] [address] [address] [address] Rich Cutler RBC 4.72 106/ul Normal 4.20-5.40 [facility] Comment on above: Performed By: #### C BC #### [facility] [address] [place] [address] Dr. Rich Cutler WBC 6.5 103/ul Normal 4.0-11.0 [facility] Comment on above: Performed By: #### C BC #### [facility] [address] [address] [address] Rich Cutler FREE THYROXINE INDEX T7on FTI 2.16 Normal 1.30-4.50 [facility] Comment on above: Performed By: #### L IPID, TSH, T7, CMP #### [facility] [address] [place] [address] Dr. Rich Cutler T3U 30.0 % Normal 30.0-39.0 [facility] Comment on above: Performed By: #### L IPID, TSH, T7, CMP #### [facility] [address] [place] [address] Dr. Rich Cutler T4 [Mass/Vol] 7.20 ug/dL Normal 4.80-13.90 [facility] Comment on above: Performed By: #### L IPID, TSH, T7, CMP #### [facility] [address] [place] [address] Dr. Rich Cutler GLYCOHEMOGLOBIN A1Con 2021 ADA RECOMMENDATION SEE BELOW Normal [facility] Comment on above: Result Comment: ADA RECOMMENDED LIMIT 4.0 - 6.0 ADA THERAPEUTIC TARGET < 7.0 ACTION SUGGESTED > 7.0 Performed By: #### A 1C #### [facility] [address] [address] [address] Rich Cutler Glucose [Mass/Vol] 128 mg/dL Normal [facility] Comment on above: Performed By: #### A 1C #### [facility] [address] [address] [address] Rich Cutler HbA1c (Bld) [Mass fraction] 6.1 % Normal 4.5-6.2 [facility] Comment on above: Performed By: #### A 1C #### [facility] [address] [address] [address] Rich Cutler IRONon 09-23-2022 Iron [Mass/Vol] 64.0 ug/dL Normal 50.0-170.0 [facility] Comment on above: Performed By: #### C VDTB #### [facility] [address] [address] [address] Rich Cutler LIPID PROFILEon 09-23-2022 CHOL-HDL RATIO NORM SEE BELOW Normal [facility] Comment on above: Result Comment: 3.3 - 4.4 LOW RISK 4.4 - 7.1 AVERAGE RISK 7.1 - 11.0 MODERATE RISK >11.0 HIGH RISK Performed By: #### L IPID, TSH, T7, CMP #### [facility] [address] [address] [address] Rich Cutler Cholesterol [Mass/Vol] 237 mg/dL Critically high <=200 [facility] Comment on above: Performed By: #### L IPID, TSH, T7, CMP #### [facility] [address] [address] [address] Rich Cutler Cholesterol in HDL [Mass/Vol] 44 mg/dL Normal 40-60 [facility] Comment on above: Performed By: #### L IPID, TSH, T7, CMP #### [facility] [address] [address] [address] Rich Cutler Cholesterol in LDL [Mass/Vol] 172.2 mg/dL Normal [facility] Comment on above: Performed By: #### L IPID, TSH, T7, CMP #### [facility] [address] [address] [address] Rich Cutler Cholesterol.total/Ch olesterol in HDL [Mass ratio] 5.4 {ratio} Normal [facility] Comment on above: Performed By: #### L IPID, TSH, T7, CMP #### [facility] [address] [address] [address] Rich Cutler HDL NORMAL > or = 60 mg/dl - LO W CARDIOVASCULAR RISK <40 mg/dl - HIGH CARDIOVASCULAR RISK Normal [facility] Comment on above: Performed By: #### L IPID, TSH, T7, CMP #### [facility] [address] [address] [address] Rich Cutler LDL CALC NORMAL SEE BELOW Normal [facility] Comment on above: Result Comment: <100 mg/dl OPTIMAL 100 - 129 mg/dl NEAR OR ABOVE OPTIMAL 130 - 159 mg/dl BORDERLINE HIGH 160 - 189 mg/dl HIGH >190 mg/dl VERY HIGH Performed By: #### L IPID, TSH, T7, CMP #### [facility] [address] [address] [address] Rich Cutler Triglyceride [Mass/Vol] 104 mg/dL Normal <=150 [facility] Comment on above: Performed By: #### L IPID, TSH, T7, CMP #### [facility] [address] [address] [address] Rich Cutler VLDL CALC 20.8 mg/dL Normal [facility] Comment on above: Performed By: #### L IPID, TSH, T7, CMP #### [facility] [address] [address] [address] Rich Cutler PROF 14(COMP METB)on 022 Albumin [Mass/Vol] 3.5 g/dL Normal 3.4-5.0 [facility] Comment on above: Performed By: #### L IPID, TSH, T7, CMP #### [facility] [address] [address] [address] Rich Cutler Albumin/Globulin [Mass ratio] 0.9 {ratio} Normal [facility] Comment on above: Performed By: #### L IPID, TSH, T7, CMP #### [facility] [address] [place] [address] Dr. Rich Cutler ALP [Catalytic activity/Vol] 93 U/L Normal 46-116 [facility] Comment on above: Performed By: #### L IPID, TSH, T7, CMP #### [facility] [address] [place] [address] Dr. Rich Cutler ALT [Catalytic activity/Vol] 44 U/L Normal 14-59 [facility] Comment on above: Performed By: #### L IPID, TSH, T7, CMP #### [facility] [address] [place] [address] Dr. Rich Cutler Anion gap [Moles/Vol] 8.5 mmol/L Normal [facility] Comment on above: Performed By: #### L IPID, TSH, T7, CMP #### [facility] [address] [place] [address] Dr. Rich Cutler AST [Catalytic activity/Vol] 26 U/L Normal 15-37 [facility] Comment on above: Performed By: #### L IPID, TSH, T7, CMP #### [facility] [address] [place] [address] Dr. Rich Cutler Bilirubin [Mass/Vol] 0.3 mg/dL Normal 0.2-1.0 [facility] Comment on above: Performed By: #### L IPID, TSH, T7, CMP #### [facility] [address] [place] [address] Dr. Rich Cutler Calcium [Mass/Vol] 9.0 mg/dL Normal 8.5-10.1 [facility] Comment on above: Performed By: #### L IPID, TSH, T7, CMP #### [facility] [address] [place] [address] Dr. Rich Cutler Chloride [Moles/Vol] 106 mmol/L Normal 98-107 [facility] Comment on above: Performed By: #### L IPID, TSH, T7, CMP #### [facility] [address] [address] [address] Rich Cutler CO2 [Moles/Vol] 31.0 mmol/L Normal 21.0-32.0 [facility] Comment on above: Performed By: #### L IPID, TSH, T7, CMP #### [facility] [address] [address] [address] Rich Cutler Creatinine [Mass/Vol] 1.11 mg/dL Critically high 0.55-1.02 [facility] Comment on above: Performed By: #### L IPID, TSH, T7, CMP #### [facility] [address] [address] [address] Rich Cutler EGFR-AF [place] >60 Normal >=60 [facility] Comment on above: Performed By: #### L IPID, TSH, T7, CMP #### [facility] [address] [place] [address] Dr. Rich Cutler EGFR-NON AF [place] 50 mL/min/1.73m2 Critically low >=60 [facility] Comment on above: Performed By: #### L IPID, TSH, T7, CMP #### [facility] [address] [place] [address] Dr. Rich Cutler Globulin (S) [Mass/Vol] 3.7 g/dL Normal [facility] Comment on above: Performed By: #### L IPID, TSH, T7, CMP #### [facility] [address] [place] [address] Dr. Rich Cutler Glucose [Mass/Vol] 121 mg/dL Critically high 74-106 [facility] Comment on above: Performed By: #### L IPID, TSH, T7, CMP #### [facility] [address] [place] [address] Dr. Rich Cutler Potassium [Moles/Vol] 4.5 mmol/L Normal 3.5-5.1 [facility] Comment on above: Performed By: #### L IPID, TSH, T7, CMP #### [facility] [address] [place] [address] Dr. Rich Cutler Protein [Mass/Vol] 7.2 g/dL Normal 6.4-8.2 [facility] Comment on above: Performed By: #### L IPID, TSH, T7, CMP #### [facility] [address] [address] [address] Rich Cutler Sodium [Moles/Vol] 141 mmol/L Normal 136-145 [facility] Comment on above: Performed By: #### L IPID, TSH, T7, CMP #### [facility] [address] [address] [address] Rich Cutler Urea nitrogen [Mass/Vol] 16.0 mg/dL Normal 7.0-18.0 [facility] Comment on above: Performed By: #### L IPID, TSH, T7, CMP #### [facility] [address] [place] [address] Dr. Rich Cutler Urea nitrogen/Creatinine [Mass ratio] 14.4 mg/mg Normal [facility] Comment on above: Performed By: #### L IPID, TSH, T7, CMP #### [facility] [address] [address] [address] Rich Cutler TSHon 09-23-2022 TSH 3.915 uIU/mL Critically high 0.358-3.740 [facility] Comment on above: Performed By: #### L IPID, TSH, T7, CMP #### [facility] [address] [place] [address] Dr. Rich Cutler Physician Referralon 022 Physician Referral [phone] [id number] Normal [facility] Lipid Panelon 10-07-2021 Cholesterol [Mass/Vol] 205 mg/dL High 140-200 [facility] Comment on above: Result Comment: Chol less than 200 mg/dl low risk Chol 201-239 mg/dl borderline risk Chol 240 mg/dl and greater high risk Performed By: #### L IPID, [id number], TSH3 wRFLX #### [facility] [address] [place] [address] [place] Cholesterol in HDL [Mass/Vol] 25 mg/dL Low 35-85 [facility] Comment on above: Result Comment: HDL CHOL ATP-III CLASSIFICATION Cardiovascular Risk HDL > or equal to 60 mg/dL LOW HDL < 40 mg/dL HIGH Performed By: #### L IPID, [id number], TSH3 wRFLX #### [facility] [address] [place] [address] [facility] Cholesterol.total/Ch olesterol in HDL [Mass ratio] 8.2 {ratio} Normal <5.0 [facility] Comment on above: Performed By: #### L IPID, [id number], TSH3 wRFLX #### [facility] [address] [id number] [facility] LDL Cholesterol,Calculat ed 160 mg/dL High 0-100 [facility] Comment on above: Result Comment: LDL ATP III CLASSIFICATION LDL less than 100 mg/dL Optimal LDL 100-129 mg/dL Near or above optimal LDL 130-159 mg/dL Borderline high LDL 160-189 mg/dL High LDL greater than 189 mg/dL Very high Performed By: #### L IPID, [id number], TSH3 wRFLX #### [facility] [address] [id number] [facility] Triglyceride w/Reflex 100 mg/dL Normal 35-149 [facility] Comment on above: Result Comment: TRIG ATP III CLASSIFICATION TRIG less than 150 mg/dL Normal TRIG 150-199 mg/dL Borderline high TRIG 200-500 mg/dL High TRIG greater than 500 mg/dL Very high Standard traceable to the Center for Disease Conrtrol and Prevention (CDC) test method. Performed By: #### L IPID, [id number], TSH3 wRFLX #### [facility] [address] [place] [address] [facility] VLDL CHOLESTEROL 20 mg/dL Normal [facility] Comment on above: Performed By: #### L IPID, [id number], TSH3 wRFLX #### [facility] [address] [place] [address] [facility] Thyroid Stim Hormone w/Rflxo n 10-07-2021 Thyroid Stim Hormone w/Rflx 3.27 u[iU]/mL Normal 0.45-5.33 [facility] Comment on above: Performed By: #### L IPID, [id number], TSH3 wRFLX #### [facility] [address] [place] [address] [facility] Vitamin D 25 Hydroxy Totalon 10-07-2021 Vitamin D 25 Hydroxy Total 26.5 ng/mL Low 30-100 [facility] Comment on above: Result Comment: JACKELINE MIN D STATUS 25(OH)VITAMIN D RANGE (ng/mL) Deficient <20 Insufficient 20 to <30 Sufficient 30 to 100 Reference: Lanny MF,Gino NC, Dyan VALENZUELA, et al. Evaluation,treatment, and prevention of vitamin D deficiency; an Endocrine Society clinical practice guideline. JCEM. 2010; 96(7):1911-30. PERFORMED BY: [place] [address] [employer] ARCHITECT SILVESTRE SCHULER M.D. Performed By: #### L IPID, [id number], TSH3 wRFLX #### [address] [address] [facility] Vital Signs Date Time Vital Sign Value Performing Clinician Deidre gagnon 10-06-2022 15:36-0500 Blood Pressure Location Umm MARTÍNEZ [facility] [place] 10-06-2022 15:36-0500 Diastolic blood pressure 86 mm[Hg] Umm MARTÍNEZ [facility] [place] 10-06-2022 15:36-0500 Heart rate 72 /min Umm MARTÍNEZ [facility] [place] 10-06-2022 15:36-0500 Respiratory rate 16 /min Umm MARTÍNEZ [facility] [place] 10-06-2022 15:36-0500 Systolic blood pressure 126 mm[Hg] Umm MARTÍNEZ [facility] [place] Encounters Encounter Date Encounter Type Care Provider Facility Start: 11-26-2022 Encounter for preprocedural laboratory examination DR UMM MARTÍNEZ . [facility] Start: 11-25-2022 End: 11-26-2022 ambulatory Umm MARTÍNEZ Facility:[id number] Start: 11-20-2022 End: 11-21-[address] UMM MARTÍNEZ . Facility:[facility] Start: 11-20-2022 End: 11-21-2022 Encounter for preprocedural laboratory examination DR UMM MARTÍNZE . Facility: Start: 10-06-2022 End: 10-07-2022 ambulatory Umm MARTÍNEZ Facility:[facility] Start: 10-06-2022 End: 10-06-2022 Patient encounter procedure Umm MARTÍNEZ General Surgery [facility] Start: 10-02-2022 End: 10-03-[address] KENDRA MURILLO . Facility: Start: 09-30-2022 End: 10-01-[address] KENDRA MURILLO . Facility: Start: 09-28-2022 Encounter for genera l adult medical examination without abnormal findings DR KENDRA MURILLO . [facility] Start: 09-24-2022 End: 09-24-[address] SYBIL CORDOVA . Facility: Start: 09-23-2022 End: 09-24-[address] KENDRA MRUILLO . Facility: Start: 09-23-2022 End: 09-24-2022 Encounter [...] Immunization Date Immunization Notes Care Provider [facility] 04-14-2021 SARS-CoV-2 (COVID-19 ) mRNA BNT-162b2 vax Umm MARTÍNEZ [facility] [place] 03-11-2021 SARS-CoV-2 (COVID-19 ) mRNA BNT-162b2 vax Umm MARTÍNEZ [facility] [place] Payers Date Payer Category Payer Unknown [id number] 2.16.8 [id number] 1965 Unknown [id number] 2.16.8 [id number] 1965 Unknown [id number] 2.16.84 [id number] 1965 Unknown [id number] 2.16.84 [id number] 1964 Unknown [id number] 2.16.84 [id number] 1964 Unknown [id number] 2.16.84 [id number] 1964 Unknown [id number] 2.16.84 [id number] 1964 Unknown [id number] 2.16.84 [id number] 1965 Unknown [id number] 2.16.84 [id number] 1960 Self-pay [id number] 1960 Unknown [id number] Social History Date Type Detail Facility Start: 10-06-2022 Tobacco smoking status Ex-smoker (fi nding) [facility] [place] Tobacco smoking status Never [facility] [place] Sex Assigned At Female [facility] Functional Status Date Assessment Result Facility 10-06-2022 Functional Status N/A [facility] [place] Clinical Note 11-25-2022 Note Date & Type [...] 10 years. CC: Kendra Murillo M.D. [facility] Clinical Note 10-11-2022 Note Date & Type [...] 1 tab(s), Oral, (more content not included)... [facility] Comment on above: Result Comment: Elec tronically Signed By: DIPESH BUCKNER, Umm Hogan\Date and Time Signed: 10/11/22 11:01 EST Evaluation + Plan note Note Date & Type Note Facility Evaluation + Plan note No data available for this section [facility] [place] Discharge instructions Note Date & Type Note Facility Hospital Discharge instructions No data available for this section [facility] [place] Progress note Note Date & Type Note Facility Progress note No data available for this section [facility] [place] Summary Purpose Family History No Family History Records FoundNo Family History Records FoundNo Family History Records Found Advance Directives No Advanced Directives Records FoundNo Advanced Directives Records FoundNo Advanced Directives Records Found Additional Source Comments INFORMATION SOURCE (unrecogn ized section and content) DATE CREATED AUTHOR 12/17/2021 [facility] DATE CREATED AUTHOR AUTHOR'S ORGANIZ ATION 12/16/2022 [facility] DATE CREATED AUTHOR AUTHOR'S ORGANIZ ATION [facility] [facility] team informatio n (unrecognized section and content) Personnel Name: Kendra Murillo MD Address: Address: [address] [place] [address] Personnel Name: Kendra Murillo MD Address: Address: [address] [place] [address] FOR RECORDS PERTAINING TO PATIENTS WHO ARE [...] BE BASED ON THE PRIMARY CLINICAL RECORDS. [facility] [employer] [facility]. provides no warranty or guarantee of the accuracy or completeness of information in this document.
--- NOTE | 2024-05-19 14:32 | PC.NURSE ---
Nursing Note Cardiac Stress Test Reviewed: Medication, allergies and patient history reviewed. Stress Test: [ x] Patient tolerated stress test well. [ ] Patient unable to tolerate walking on treadmill. Switched to Lexiscan stress test. [ ] No chest pain noted per patient [ ] Chest pain that resolved prior to leaving stress lab. [ ] No dyspnea noted. [ x] Dyspnea that resolved prior to leaving stress lab. [ x] Patient left stress lab asymptomatic and hemodynamically stable. [ ] Patient taken to the Emergency Room due to non-resolving symptoms following stress test. [ x] Patient achieved target heart rate. [ ] Patient unable to achieve target heart rate. [ ] Aminophylline administered as reversal agent to Lexiscan (Regadenoson). [ ] Nitro administered. Nursing Comments: Patient was able to reach target heart rate on treadmill. As patient reached target heart rate she asked to end the treadmill portion of the exam. She stated she was short of breath and was not feeling safe on the treadmill. Cardiolyte was administered prior to this comment being made. Treadmill was immediately placed in recovery mode and then stopped and patient was transferred to the bed in the room and was monitored during recovery. Patient reported her shortness of breath resolved with rest and she felt as though her heart was not racing anymore. All symptoms resolved prior to patient leaving the room.
== END 2024-05-19 08:09 | disposition home or self-care (01) ==
LOC: NM 08:08
PROVIDERS: PCP Family Medicine; Visit Provider Family Medicine
DX: R91.1 Solitary pulmonary nodule (principal); I10 Essential (primary) hypertension
CPT/HCPCS: 78452; 93017; A9500

== ENCOUNTER 2024-06-13 07:56 | Emergency (ER) | payer MEDICAID, SELFPAY ==
[2024-06-13] VITALS (16 sets, daily range): BP systolic 162–180; BP diastolic 70–94; PULSE 53–85; TEMP 36.7; O2SAT 98; BMI 38.1
--- NOTE | 2024-06-13 08:15 | ECG_ITS ---
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
--- OUTSIDE RECORDS SUMMARY | 2024-06-13 08:34 | XMS_ITS | CCD ---
Author Organization [facility] Care Team Providers Care Messenger Floorperson Name Role Phone Kendra Murillo Primary Care [...] Unavailable NILL ., DR SALOMON Consulting Unavailable DIPTIFARAT Consulting Unavailable MICHAEL II, BASILIA Consulting Unavailable [...] HOY ., DR GARDNER Primary Care Unavailable SALIX, DR ADELIA Medrano Consulting Unavailable BIJAN MITCHELL Attending Unavailable Allergies Allergy Classification Reported Allergen(s) Allergy Type Date of Onset Reaction(s) Facility (1 source) No Known Medication Allergies; 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: [No Known Medication Allergies] Propensity to adverse reactions (disorder) [facility] Repository (1 source) ALPRAZolam; 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: [ALPRAZOLAM] Drug Allergy [facility] Repository Medications Current Medications Medication [...] Coronary arteriosclerosis; 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: [Atherosclerotic heart disease of [place] coronary artery without angina pectoris] Onset: 11-26-2022 09-30-2022 Chronic Disorders of lipid metabolism (3 sources) Hyperlipidemia, unspecified; 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: [HYPERLIPIDEMIA UNSPECIFIED] Onset: 11-26-2022 Chronic Essential hypertension (5 sources) Hypertensive disorder; 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: [Essential (primary) hypertension] [...] (2 sources) Adrenal mass 12-20-2019 Episodic Other lower respiratory disease (2 sources) Other forms of dyspnea; 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: [Other forms of dyspnea] Onset: 05-26-2024 Episodic Other nervous system disorders (2 sources) [...] 11-26-2022 12-20-2019 Episodic Other aftercare (1 source) 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; 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: [[facility] CURRENT USE OF ASPIRIN] Onset: 11-26-2022 Episodic Other aftercare (1 source) 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; 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: [OTH [facility] CURRENT DRUG THERAPY] Onset: 11-26-2022 Episodic Other [...] Test Name Value Interpretation Reference Range Facility Office Visiton 05-26-2024 Follow-up visit [id number] Aby Madrigal 1965 F Date Provider Department Center 05/26/2024 [id number] VAZQUEZ [facility] Family History Problem Relation Age of Onset Lung cancer Mother No Known Problems Father Lung cancer Sister Family Status - Relation Status Age at Mother Father Sister Level of Service:30122 CO OFFICE/OUTPATIENT NEW MODERATE MDM 45 MINUTES Normal [facility] Outside Colonoscopyon 2022 Outside Colonoscopy [id number] .[id number]:127 Normal [facility] Reminderson 11-27-2022 Reminders - From: Na Hayes LPN To: GSN - Clinical; Sent: 11/27/2022 12:46:10 EST Show up: 10/25/2032 07:00:00 EST Subject: colonoscopy recall Due Date/Time: 11/25/2032 07:00:00 EST Reminder/Recall Patient is due for screening colonoscopy 11/25/2032. Normal [facility] Lab Reportson 11-24-2022 Lab Reports [id number] .00CD:127 Normal [facility] Covid-19 PCR (CVDTB)on 10-24 SARS-CoV-2 (COVID-19) RNA BECK+probe Ql (Unsp spec) Not detected Normal NOT DETECTED [facility] Comment on above: Result Comment: This test is not yet approved or cleared by the [place] FDA. When there are no FDA-approved or cleared tests available, and other criteria are met, FDA can make tests available under an emergency access mechanism called an Emergency Use Authorization (EUA). The EUA for this test is supported by the [place] of Health and Human Service's (HHS's) declaration [...] consistent with SARS-CoV-2. Performed By: #### C [facility] #### [facility] [address] [place] [address] Dr. Rich Cutler Consent for Procedure/Surger yon 10-07-2022 Consent for Procedure/Surgery [id number] .00CD:127 Normal [facility] Ambulatory Visit Summaryon 1 12-06-2021 Ambulatory Visit Summary ABY MADRIGAL :1965 Visit Date:10/06/2022 Ambulatory Visit Instructions Your Care Team Attending Physician - DIPESH BUCKNER, Umm Michael Primary Care Physician - Kendra Murillo MD This Is Your Medications List Contact prescribing [...] for. Allergic conjunctivitis Anticoagulated Kidney stones Normal [facility] VC VENOUS REFLUX NINO LMTon 1 12-02-2021 VC VENOUS REFLUX NINO LMT Patient: ABY MADRIGAL Exam Date: 10/02/2022 : 1965 Gender:F Ordering : DR KENDRA MURILLO . Admission #: [id number] Family : Order #: [id number] CLICK HERE TO VIEW EXAM RADIOLOGY REPORT [...] chronic thrombus visualized Compressibility: Normal Flow: Normal [employer]: Dist/med calf 3.3mm with 0s reflux. Tech Note: Incompetent SFJ and GSV. Patent varicose vein mid/med calf 2.9mm with 0s reflux. Patent varicose vein prox/post calf 3.8mm with 0s reflux. Patent varicose vein dist/med thigh 3.8mm with 2.0s reflux. CONCLUSION: 1. Mild right and [id number]-wu-[id number] left great saphenous vein venous insufficiency with dilatation 2. Left saphenous popliteal junction reflux 3. Mild left anterior accessory saphenous vein venous insufficiency without dilatation 4. Small bilateral incompetent varicose veins Dictated by: Adelia Lezama MD on 10/02/2022 at 13:36 Approved by: Adelia Lezama MD on 10/02/2022 at 13:52 Normal [facility] ECHOCARDIO M/2D COMPLETEon 1 11-30-2021 ECHOCARDIO M/2D COMPLETE Patient: ABY MADRIGAL Exam Date: 09/30/2022 : 1965 Gender:F Ordering : DR KENDRA MURILLO . Admission #: [id number] Family : Order #: [id number] CLICK HERE TO VIEW EXAM ECHOCARDIOGRAM REPORT [...] M.D. on 09/30/2022 at 18:[address] [facility] BNPon 09-24-2022 Natriuretic peptide B (Bld) [Mass/Vol] 501.0 pg/mL Normal <=900.[address] [facility] Comment on above: Performed By: #### C VDTB #### [facility] [address] [place] [id number] [address] Rich Cutler CBC AUTO DIFFon 09-24-2022 BASO # 0.1 103/ul Normal 0.0-0.1 [facility] Comment on above: Performed By: #### C ALEXANDERTB #### [facility] [address] [place] [address] Dr. Rich Cutler Basophils/100 WBC (Bld) 0.8 % Normal 0.2-2.[address] [facility] Comment on above: Performed By: #### C VDTBH #### [facility] [address] [place] [address] Dr. Rich Cutler EO # 0.3 103/ul Normal 0.0-0.[address] [facility] Comment on above: Performed By: #### C VDTBH #### [facility] [address] [place] [address] Dr. Rich Cutler Eosinophils/100 WBC (Bld) 3.4 % Normal 0.9-7.0 [facility] Comment on above: Performed By: #### C VDTBH #### [facility] [address] [place] [address] Dr. Rich Cutler Erythrocyte distribution width (RBC) [Ratio] 13.3 % Normal 11.0-15.0 [facility] Comment on above: Performed By: #### C VDTBH #### [facility] [address] [place] [address] Dr. Rich Cutler Hematocrit (Bld) [Volume fraction] 40.5 % Normal 36.0-48.0 [facility] Comment on above: Performed By: #### C VDTBH #### [facility] [address] [place] [address] Dr. Rich Cutler Hemoglobin (Bld) [Mass/Vol] 13.1 g/dL Normal 12.0-16.[address] [facility] Comment on above: Performed By: #### C VDTBH #### [facility] [address] [place] [address] Dr. Rich Cutler IG # 0.02 10e3/ul Normal 0.00-0.[address] [facility] Comment on above: Performed By: #### C VDTBH #### [facility] [address] [place] [address] Dr. Rich Cutler IG % 0.3 % Normal 0.0-0.[address] [facility] Comment on above: Performed By: #### C VDTBH #### [facility] [address] [address] [address] Rich Cutler LYMPH # 2.7 103/ul Normal 1.2-3.8 [facility] Comment on above: Performed By: #### C VDTBH #### [facility] [address] [place] [address] Dr. Rich Cutler Lymphocytes/100 WBC (Bld) 35.4 % Normal 20.5-60.0 [facility] Comment on above: Performed By: #### C VDTBH #### [facility] [address] [place] [address] Dr. Rich Cutler MANUAL DIFF REQ NO Normal [facility] Comment on above: Performed By: #### C VDTBH #### [facility] [address] [place] [address] Dr. Rich Cutler MCH (RBC) [Entitic mass] 28.2 pg Normal 26.7-34.0 [facility] Comment on above: Performed By: #### C VDTBH #### [facility] [address] [place] [address] Dr. Rich Cutler MCHC (RBC) [Mass/Vol] 32.3 g/dL Normal 29.9-35.2 [facility] Comment on above: Performed By: #### C VDTBH #### [facility] [address] [place] [address] Dr. Rich Cutler MCV (RBC) [Entitic vol] 87.3 fL Normal 81.0-99.0 [facility] Comment on above: Performed By: #### C VDTBH #### [facility] [address] [place] [address] Dr. Rich Cutler MONO # 0.5 103/ul Normal 0.3-0.8 [facility] Comment on above: Performed By: #### C VDTBH #### [facility] [address] [place] [address] Dr. Rich Cutler Monocytes/100 WBC (Bld) 6.5 % Normal 1.7-12.0 [facility] Comment on above: Performed By: #### C VDTBH #### [facility] [address] [address] [address] Rich Cutler NEUT # 4.1 103/ul Normal 1.4-6.5 [facility] Comment on above: Performed By: #### C VDTBH #### [facility] [address] [address] [address] Rich Cutler Neutrophils/100 WBC (Bld) 53.6 % Normal 43.0-75.0 [facility] Comment on above: Performed By: #### C VDTBH #### [facility] [address] [place] [address] Dr. Rich Cutler Platelet mean volume (Bld) [Entitic vol] 10.3 fL Normal 9.5-13.5 [facility] Comment on above: Performed By: #### C VDTBH #### [facility] [address] [place] [address] Dr. Rich Cutler PLT 283 103/ul Normal 150-[address] [facility] Comment on above: Performed By: #### C VDTBH #### [facility] [address] [place] [address] Dr. Rich Cutler RBC 4.64 106/ul Normal 4.20-5.40 [facility] Comment on above: Performed By: #### C VDTBH #### [facility] [address] [place] [address] Dr. Rich Cutler WBC 7.6 103/ul Normal 4.0-11.0 [facility] Comment on above: Performed By: #### C VDTBH #### [facility] [address] [place] [address] Dr. Rich Cutler INSULINon 09-24-2022 Insulin 15.1 uIU/mL Normal 2.6-24.9 [facility] Comment on above: Performed By: #### C VDTBH #### [facility] [address] [place] [address] Dr. Rich Cutler PROF 14(COMP METB)on 022 Albumin [Mass/Vol] 3.5 g/dL Normal 3.4-5.0 [facility] Comment on above: Performed By: #### C VDTBH #### [facility] [address] [address] [address] Rich Cutler Albumin/Globulin [Mass ratio] 1.0 {ratio} Normal [facility] Comment on above: Performed By: #### C VDTBH #### [facility] [address] [address] [address] Rich Cutler ALP [Catalytic activity/Vol] 91 U/L Normal 46-116 [facility] Comment on above: Performed By: #### C VDTBH #### [facility] [address] [place] [address] Dr. Rich Cutler ALT [Catalytic activity/Vol] 47 U/L Normal 14-59 [facility] Comment on above: Performed By: #### C VDTBH #### [facility] [address] [place] [address] Dr. Rich Cutler Anion gap [Moles/Vol] 11.7 mmol/L Normal [facility] Comment on above: Performed By: #### C VDTBH #### [facility] [address] [place] [address] Dr. Rich Cutler AST [Catalytic activity/Vol] 24 U/L Normal 15-37 [facility] Comment on above: Performed By: #### C VDTBH #### [facility] [address] [place] [address] Dr. Rich Cutler Bilirubin [Mass/Vol] 0.2 mg/dL Normal 0.2-1.0 [facility] Comment on above: Performed By: #### C VDTBH #### [facility] [address] [address] [address] Rich Cutler Calcium [Mass/Vol] 8.9 mg/dL Normal 8.5-10.1 [facility] Comment on above: Performed By: #### C VDTBH #### [facility] [address] [address] [address] Rich Cutler Chloride [Moles/Vol] 105 mmol/L Normal 98-107 [facility] Comment on above: Performed By: #### C VDTBH #### [facility] [address] [address] [address] Rich Cutler CO2 [Moles/Vol] 28.1 mmol/L Normal 21.0-32.0 [facility] Comment on above: Performed By: #### C VDTBH #### [facility] [address] [address] [address] Rich Cutler Creatinine [Mass/Vol] 1.13 mg/dL Critically high 0.55-1.02 [facility] Comment on above: Performed By: #### C VDTBH #### [facility] [address] [address] [address] Rich Cutler EGFR-AF TAIWANESE 60 mL/min/1.73m2 Normal >=60 [facility] Comment on above: Performed By: #### C VDTBH #### [facility] [address] [address] [address] Rich Cutler EGFR-NON AF TAIWANESE 49 mL/min/1.73m2 Critically low >=60 [facility] Comment on above: Performed By: #### C VDTBH #### [facility] [address] [place] [address] Dr. Rich Cutler Globulin (S) [Mass/Vol] 3.5 g/dL Normal [facility] Comment on above: Performed By: #### C VDTBH #### [facility] [address] [address] [address] Rich Cutler Glucose [Mass/Vol] 119 mg/dL Critically high 74-106 [facility] Comment on above: Performed By: #### C VDTBH #### [facility] [address] [address] [address] Rich Cutler Potassium [Moles/Vol] 3.8 mmol/L Normal 3.5-5.1 [facility] Comment on above: Performed By: #### C VDTBH #### [facility] [address] [address] [address] Rich Cutler Protein [Mass/Vol] 7.0 g/dL Normal 6.4-8.2 [facility] Comment on above: Performed By: #### C VDTBH #### [facility] [address] [place] [address] Dr. Rich Cutler Sodium [Moles/Vol] 141 mmol/L Normal 136-145 [facility] Comment on above: Performed By: #### C VDTBH #### [facility] [address] [place] [address] Dr. Rich Cutler Urea nitrogen [Mass/Vol] 16.0 mg/dL Normal 7.0-18.0 [facility] Comment on above: Performed By: #### C VDTBH #### [facility] [address] [place] [address] Dr. Rich Cutler Urea nitrogen/Creatinine [Mass ratio] 14.2 mg/mg Normal [facility] Comment on above: Performed By: #### C VDTBH #### [facility] [address] [place] [address] Dr. Rich Cutler TROPONIN, HIGH SENSITIVITYon 09-24-2022 HSTROP 10.6 pg/mL Normal 4.0-51.3 [facility] Comment on above: Result Comment: CUT- OFF POINTS HAVE BEEN ESTABLISHED BASED ON THE FOURTH UNIVERSAL DEFINITIONS OF MYOCARDIAL INFARCTION. THE UPPER REFERENCE LIMIT (URL) OF TROPONIN, DEFINED THE 99TH PERCENTILE OF cTnI DISTRIBUTION IN A REFERENCE POPULATION, HAS BEEN CONFIRMED THE DECISION THRESHOLD FOR GA DIAGNOSIS. Performed By: #### C VDTBH #### [facility] [address] [place] [address] Dr. Rich Cutler XR CHEST 1 Von [...] UMM HUMPHRIES Date: 2022-09-24 04:[address] [facility] CBC AUTO DIFFon 09-23-2022 BASO # 0.1 103/ul Normal 0.0-0.1 [facility] Comment on above: Performed By: #### C BC #### [facility] [address] [address] [address] Rich Cutler Basophils/100 WBC (Bld) 0.8 % Normal 0.2-2.[address] [facility] Comment on above: Performed By: #### C BC #### [facility] [address] [address] [address] Rich Cutler EO # 0.2 103/ul Normal 0.0-0.[address] [facility] Comment on above: Performed By: #### C BC #### [facility] [address] [place] [address] Dr. Rich Cutler Eosinophils/100 WBC (Bld) 3.5 % Normal 0.9-7.0 [facility] Comment on above: Performed By: #### C BC #### [facility] [address] [place] [address] Dr. Rich Cutler Erythrocyte distribution width (RBC) [Ratio] 13.4 % Normal 11.0-15.0 [facility] Comment on above: Performed By: #### C BC #### [facility] [address] [place] [address] Dr. Rich Cutler Hematocrit (Bld) [Volume fraction] 42.3 % Normal 36.0-48.0 [facility] Comment on above: Performed By: #### C BC #### [facility] [address] [place] [address] Dr. Rich Cutler Hemoglobin (Bld) [Mass/Vol] 13.4 g/dL Normal 12.0-16.[address] [facility] Comment on above: Performed By: #### C BC #### [facility] [address] [place] [address] Dr. Rich Cutler IG # 0.03 10e3/ul Normal 0.00-0.[address] [facility] Comment on above: Performed By: #### C BC #### [facility] [address] [place] [address] Dr. Rich Cutler IG % 0.5 % Normal 0.0-0.5 [facility] Comment on above: Performed By: #### C BC #### [facility] [address] [place] [address] Dr. Rich Cutler LYMPH # 2.9 103/ul Normal 1.2-3.[address] [facility] Comment on above: Performed By: #### C BC #### [facility] [address] [place] [address] Dr. Rich Cutler Lymphocytes/100 WBC (Bld) 44.0 % Normal 20.5-60.[address] [facility] Comment on above: Performed By: #### C BC #### [facility] [address] [place] [address] Dr. Rich Cutler MANUAL DIFF REQ NO Normal [facility] Comment on above: Performed By: #### C BC #### [facility] [address] [place] [address] Dr. Rich Cutler MCH (RBC) [Entitic mass] 28.4 pg Normal 26.7-34.0 [facility] Comment on above: Performed By: #### C BC #### [facility] [address] [place] [address] Dr. Rich Cutler MCHC (RBC) [Mass/Vol] 31.7 g/dL Normal 29.9-35.[address] [facility] Comment on above: Performed By: #### C BC #### [facility] [address] [place] [address] Dr. Rich Cutler MCV (RBC) [Entitic vol] 89.6 fL Normal 81.0-99.[address] [facility] Comment on above: Performed By: #### C BC #### [facility] [address] [place] [address] Dr. Rich Cutler MONO # 0.4 103/ul Normal 0.3-0.[address] [facility] Comment on above: Performed By: #### C BC #### [facility] [address] [place] [address] Dr. Rich Cutler Monocytes/100 WBC (Bld) 6.6 % Normal 1.7-12.0 [facility] Comment on above: Performed By: #### C BC #### [facility] [address] [place] [address] Dr. Rich Cutler NEUT # 2.9 103/ul Normal 1.4-6.5 [facility] Comment on above: Performed By: #### C BC #### [facility] [address] [place] [address] Dr. Rich Cutler Neutrophils/100 WBC (Bld) 44.6 % Normal 43.0-75.0 [facility] Comment on above: Performed By: #### C BC #### [facility] [address] [place] [address] Dr. Rich Cutler Platelet mean volume (Bld) [Entitic vol] 11.0 fL Normal 9.5-13.[address] [facility] Comment on above: Performed By: #### C BC #### [facility] [address] [place] [address] Dr. Rich Cutler PLT 272 103/ul Normal 150-450 [facility] Comment on above: Performed By: #### C BC #### [facility] [address] [place] [address] Dr. Rich Cutler RBC 4.72 106/ul Normal 4.20-5.[address] [facility] Comment on above: Performed By: #### C BC #### [facility] [address] [place] [address] Dr. Rich Cutler WBC 6.5 103/ul Normal 4.0-11.[address] [facility] Comment on above: Performed By: #### C BC #### [facility] [address] [place] [address] Dr. Rich Cutler FREE THYROXINE INDEX T7on FTI 2.16 Normal 1.30-4.50 [facility] Comment on above: Performed By: #### L IPID, TSH, T7, CMP #### [facility] [address] [place] [address] Dr. Rich Cutler T3U 30.0 % Normal 30.0-39.0 [facility] Comment on above: Performed By: #### L IPID, TSH, T7, CMP #### [facility] [address] [address] [address] Rich Cutler T4 [Mass/Vol] 7.20 ug/dL Normal 4.80-13.90 [facility] Comment on above: Performed By: #### L IPID, TSH, T7, CMP #### [facility] [address] [address] [address] Rich Cutler GLYCOHEMOGLOBIN A1Con 2021 ADA RECOMMENDATION SEE BELOW Normal [facility] Comment on above: Result Comment: ADA RECOMMENDED LIMIT 4.0 - 6.0 ADA THERAPEUTIC TARGET < 7.0 ACTION SUGGESTED > 7.0 Performed By: #### A 1C #### [facility] [address] [place] [address] Dr. Rich Cutler Glucose [Mass/Vol] 128 mg/dL Normal [facility] Comment on above: Performed By: #### A 1C #### [facility] [address] [address] [address] Rich Cutler HbA1c (Bld) [Mass fraction] 6.1 % Normal 4.5-6.2 [facility] Comment on above: Performed By: #### A 1C #### [facility] [address] [place] [address] Dr. Rich Cutler IRONon 09-23-2022 Iron [Mass/Vol] 64.0 ug/dL Normal 50.0-170.0 [facility] Comment on above: Performed By: #### C VDTBH #### [facility] [address] [address] [address] Rich Cutler LIPID PROFILEon 09-23-2022 CHOL-HDL RATIO NORM SEE BELOW Normal [facility] Comment on above: Result Comment: 3.3 - 4.4 LOW RISK 4.4 - 7.1 AVERAGE RISK 7.1 - 11.0 MODERATE RISK >11.0 HIGH RISK Performed By: #### L IPID, TSH, T7, CMP #### [facility] [address] [address] [address] Rich Cutler Cholesterol [Mass/Vol] 237 mg/dL Critically high <=[address] [facility] Comment on above: Performed By: #### L IPID, TSH, T7, CMP #### [facility] [address] [address] [address] Rich Cutler Cholesterol in HDL [Mass/Vol] 44 mg/dL Normal 40-[address] [facility] Comment on above: Performed By: #### L IPID, TSH, T7, CMP #### [facility] [address] [address] [address] Rich Cutler Cholesterol in LDL [Mass/Vol] 172.2 mg/dL Normal [facility] [facility] Comment on above: Performed By: #### L IPID, TSH, T7, CMP #### [facility] [address] [place] [address] Dr. Rich Cutler Cholesterol.total/Ch olesterol in HDL [Mass ratio] 5.4 {ratio} Normal [facility] Comment on above: Performed By: #### L IPID, TSH, T7, CMP #### [facility] [address] [address] [address] Rich Cutler HDL NORMAL > or = 60 mg/dl - LO W CARDIOVASCULAR RISK <40 mg/dl - HIGH CARDIOVASCULAR RISK Normal [facility] Comment on above: Performed By: #### L IPID, TSH, T7, CMP #### [facility] [address] [address] [address] Rich Cutler LDL CALC NORMAL SEE BELOW Normal [facility] Comment on above: Result Comment: <100 mg/dl OPTIMAL 100 - 129 mg/dl NEAR OR ABOVE OPTIMAL 130 - 159 mg/dl BORDERLINE HIGH 160 - 189 mg/dl HIGH >190 mg/dl VERY HIGH Performed By: #### L IPID, TSH, T7, CMP #### [facility] [address] [address] [address] Rich Cutler Triglyceride [Mass/Vol] 104 mg/dL Normal <=[address] [facility] Comment on above: Performed By: #### L IPID, TSH, T7, CMP #### [facility] [address] [place] [address] Dr. Rich Cutler VLDL CALC 20.8 mg/dL Normal [facility] Comment on above: Performed By: #### L IPID, TSH, T7, CMP #### [facility] [address] [place] [address] Dr. Rich uCtler PROF 14(COMP METB)on 022 Albumin [Mass/Vol] 3.5 g/dL Normal 3.4-5.0 [facility] Comment on above: Performed By: #### L IPID, TSH, T7, CMP #### [facility] [address] [place] [address] Dr. Rich Cutler Albumin/Globulin [Mass ratio] 0.9 {ratio} Normal [facility] Comment on above: Performed By: #### L IPID, TSH, T7, CMP #### [facility] [address] [place] [address] Dr. Rich Cutler ALP [Catalytic activity/Vol] 93 U/L Normal 46-116 [facility] Comment on above: Performed By: #### L IPID, TSH, T7, CMP #### [facility] [address] [place] [address] Dr. Rich Cutler ALT [Catalytic activity/Vol] 44 U/L Normal 14-59 [facility] Comment on above: Performed By: #### L IPID, TSH, T7, CMP #### [facility] [address] [place] [address] Dr. Rich Cutler Anion gap [Moles/Vol] 8.5 mmol/L Normal [facility] Comment on above: Performed By: #### L IPID, TSH, T7, CMP #### [facility] [address] [place] [address] Dr. Rich Cutler AST [Catalytic activity/Vol] 26 U/L Normal 15-37 [facility] Comment on above: Performed By: #### L IPID, TSH, T7, CMP #### [facility] [address] [place] [address] Dr. Rich Cutler Bilirubin [Mass/Vol] 0.3 mg/dL Normal 0.2-1.0 [facility] Comment on above: Performed By: #### L IPID, TSH, T7, CMP #### [facility] [address] [address] [address] Rich Cutler Calcium [Mass/Vol] 9.0 mg/dL Normal 8.5-10.1 [facility] Comment on above: Performed By: #### L IPID, TSH, T7, CMP #### [facility] [address] [place] [address] Dr. Rich Cutler Chloride [Moles/Vol] 106 mmol/L Normal 98-107 [facility] Comment on above: Performed By: #### L IPID, TSH, T7, CMP #### [facility] [address] [place] [address] Dr. Rich Cutler CO2 [Moles/Vol] 31.0 mmol/L Normal 21.0-32.0 [facility] Comment on above: Performed By: #### L IPID, TSH, T7, CMP #### [facility] [address] [place] [address] Dr. Rich Cutler Creatinine [Mass/Vol] 1.11 mg/dL Critically high 0.55-1.02 [facility] Comment on above: Performed By: #### L IPID, TSH, T7, CMP #### [facility] [address] [place] [address] Dr. Rich Cutler EGFR-AF TAIWANESE >60 Normal >=60 [facility] Comment on above: Performed By: #### L IPID, TSH, T7, CMP #### [facility] [address] [place] [address] Dr. Rich Cutler EGFR-NON AF TAIWANESE 50 mL/min/1.73m2 Critically low >=60 [facility] Comment on above: Performed By: #### L IPID, TSH, T7, CMP #### [facility] [address] [place] [address] Dr. Rich Cutler Globulin (S) [Mass/Vol] 3.7 g/dL Normal [facility] Comment on above: Performed By: #### L IPID, TSH, T7, CMP #### [facility] [address] [place] [address] Dr. Rich Cutler Glucose [Mass/Vol] 121 mg/dL Critically high 74-106 [facility] Comment on above: Performed By: #### L IPID, TSH, T7, CMP #### [facility] [address] [place] [address] Dr. Rich Cutler Potassium [Moles/Vol] 4.5 mmol/L Normal 3.5-5.1 [facility] Comment on above: Performed By: #### L IPID, TSH, T7, CMP #### [facility] [address] [place] [address] Dr. Rich Cutler Protein [Mass/Vol] 7.2 g/dL Normal 6.4-8.2 [facility] Comment on above: Performed By: #### L IPID, TSH, T7, CMP #### [facility] [address] [place] [address] Dr. Rich Cutler Sodium [Moles/Vol] 141 mmol/L Normal 136-145 [facility] Comment on above: Performed By: #### L IPID, TSH, T7, CMP #### [facility] [address] [place] [address] Dr. Rich Cutler Urea nitrogen [Mass/Vol] 16.0 mg/dL Normal 7.0-18.0 [facility] Comment on above: Performed By: #### L IPID, TSH, T7, CMP #### [facility] [address] [place] [address] Dr. Rich Cutler Urea nitrogen/Creatinine [Mass ratio] 14.4 mg/mg Normal [facility] Comment on above: Performed By: #### L IPID, TSH, T7, CMP #### [facility] [address] [place] [address] Dr. Rich Cutler TSHon 09-23-2022 TSH 3.915 uIU/mL Critically high 0.358-3.740 [facility] Comment on above: Performed By: #### L IPID, TSH, T7, CMP #### [facility] [address] [address] [address] Rich Cutler Physician Referralon 022 Physician Referral [phone] [id number] Normal [facility] Lipid Panelon 10-07-2021 Cholesterol [Mass/Vol] 205 mg/dL High 140-200 [facility] Comment on above: Result Comment: Chol less than 200 mg/dl low risk Chol 201-239 mg/dl borderline risk Chol 240 mg/dl and greater high risk Performed By: #### L IPID, [id number], TSH3 wRFLX #### [facility] [address] [place] [address] [place] Cholesterol in HDL [Mass/Vol] 25 mg/dL Low 35-85 [facility] Comment on above: Result Comment: HDL CHOL ATP-III CLASSIFICATION Cardiovascular Risk HDL > or equal to 60 mg/dL LOW HDL < 40 mg/dL HIGH Performed By: #### L IPID, [id number], TSH3 wRFLX #### [facility] [address] [place] [address] [place] Cholesterol.total/Ch olesterol in HDL [Mass ratio] 8.2 {ratio} Normal <5.0 [facility] Comment on above: Performed By: #### L IPID, [id number], TSH3 wRFLX #### [facility] [address] [id number] [place] LDL Cholesterol,Calculat ed 160 mg/dL High 0-100 [facility] Comment on above: Result Comment: LDL ATP III CLASSIFICATION LDL less than 100 mg/dL Optimal LDL 100-129 mg/dL Near or above optimal LDL 130-159 mg/dL Borderline high LDL 160-189 mg/dL High LDL greater than 189 mg/dL Very high Performed By: #### L IPID, [id number], TSH3 wRFLX #### [facility] [address] [place] [address] [place] Triglyceride w/Reflex 100 mg/dL Normal 35-149 [facility] Comment on above: Result Comment: TRIG ATP III CLASSIFICATION TRIG less than 150 mg/dL Normal TRIG 150-199 mg/dL Borderline high TRIG 200-500 mg/dL High TRIG greater than 500 mg/dL Very high Standard traceable to the Center for Disease Conrtrol and Prevention (CDC) test method. Performed By: #### L IPID, [id number], TSH3 wRFLX #### [address] VLDL CHOLESTEROL 20 mg/dL Normal [facility] Comment on above: Performed By: #### L IPID, [id number], TSH3 wRFLX #### [address] Thyroid Stim Hormone w/Rflxo n 10-07-2021 Thyroid Stim Hormone w/Rflx 3.27 u[iU]/mL Normal 0.45-5.33 [facility] Comment on above: Performed By: #### L IPID, [id number], TSH3 wRFLX #### [address] Vitamin D 25 Hydroxy Totalon 10-07-2021 Vitamin D 25 Hydroxy Total 26.5 ng/mL Low 30-100 [facility] Comment on above: Result Comment: JACKELINE MIN D STATUS 25(OH)VITAMIN D RANGE (ng/mL) Deficient <20 Insufficient 20 to <30 Sufficient 30 to 100 Reference: Lanny MF,Gino NC, Dyan VALENZUELA, et al. Evaluation,treatment, and prevention of vitamin D deficiency; an Endocrine Society clinical practice guideline. JCEM. 2010; 96(7):1911-30. PERFORMED BY: [place] [id number] PATHOLOGIST ENVELOPE FOLDER SILVESTRE SCHULER M.D. Performed By: #### L IPID, [id number], TSH3 wRFLX #### [address] Vital Signs Date Time Vital Sign Value Performing Clinician Deidre gagnon 10-06-2022 15:36-0500 Blood Pressure Location Umm JACQUESaMmi [facility] 10-06-2022 15:36-0500 Diastolic blood pressure 86 mm[Hg] Umm MARTÍNEZ [facility] 10-06-2022 15:36-0500 Heart rate 72 /min Umm DIPESH [facility] 10-06-2022 15:36-0500 Respiratory rate 16 /min Umm JACQUESMami [facility] 10-06-2022 15:36-0500 Systolic blood pressure 126 mm[Hg] Umm DIPESH [facility] Encounters Encounter Date Encounter Type Care Provider Facility Start: 05-26-2024 End: 05-26-2024 ambulatory [facility] Start: 11-26-2022 Encounter for preprocedural laboratory examination DR UMM MARTÍNEZ . [facility] Start: 11-25-2022 End: 11-26-2022 ambulatory Umm MARTÍNEZ Facility:[id number] Start: 11-20-2022 End: 11-21-[address] UMM MARTÍNEZ . Facility:[facility] Start: 11-20-2022 End: 11-21-2022 Encounter for preprocedural laboratory examination DR UMM MARTÍNEZ . Facility:[facility] Start: 10-06-2022 End: 10-07-2022 ambulatory Umm MARTÍNEZ Facility:[facility] Start: 10-06-2022 End: 10-06-2022 Patient encounter procedure Umm MARTÍNEZ [facility] Start: 10-02-2022 End: 10-03-[address] KENDRA MURILLO . Facility:[facility] Start: 09-30-2022 End: 10-01-[address] KENDRA MURILLO . Facility:[facility] Start: 09-28-2022 Encounter for genera l adult medical examination without abnormal findings DR KENDRA MURILLO . [facility] Start: 09-24-2022 End: 09-24-[address] SYBIL CORDOVA . Facility:[facility] Start: 09-23-2022 End: 09-24-[address] KENDRA MURILLO . Facility:[facility] Start: 09-23-2022 End: 09-24-2022 Encounter for general adult medical examination without abnormal findings DR KENDRA MURILLO . Facility:[facility] Start: 09-14-[address] KENDRA MURILLO . Facili ty:[facility] Procedures Date Procedure Procedure Detail Performing Clinician Start: 08-29-2019 Cystoscopic removal of ureteric stent Umm NILL Bilateral tubal ligation Ad hael NILL Catheterization of l eft heart Umm NILL Cholecystectomy Umm NILL Cystoscopic insertio n of ureteric stent Umm NILL Dilation and curetta ge of uterus Umm NILL Vaginal hysterectomy Umm NILL Immunizations Immunization Date Immunization Notes Care Provider Fa cility 04-14-2021 SARS-CoV-2 (COVID-19 ) mRNA BNT-162b2 vax Umm NILL [facility] 03-11-2021 SARS-CoV-2 (COVID-19 ) mRNA BNT-162b2 vax Umm NILL [facility] Payers Date Payer Category Payer Medicaid [id number] 1965 Unknown [id number] 2.16.8 [id number] 1965 Unknown [id number] 2.16.8 [id number] 1965 Unknown [id number] 2.16.84 [id number] 1965 Unknown [id number] 2.16.84 [id number] 1965 Unknown [id number] 2.16.84 [id number] 1965 Unknown [id number] 2.16.84 [id number] 1965 Unknown [id number] 2.16.84 [id number] 1965 Unknown [id number] 2.16.84 [id number] 1965 Unknown [id number] 2.16.84 [id number] 1960 Self-pay [id number] 1960 Unknown [id number] Social History Date Type Detail Facility Start: 10-06-2022 Tobacco smoking status Ex-smoker (fi nding) [facility] Tobacco smoking status Never [facility] Sex Assigned At Female [facility] Functional Status Date Assessment Result Facility 10-06-2022 Functional Status N/A [facility] Progress note 05-26-2024 Note Date & Type Note Facility 05-26-2024 Note [facility] Note Reason for cardiology consult: New patient here to establish care. Ref from Dr. Murillo for abnormal stress test. Chief Complaint: Dyspnea on exertion HPI: Aby Madrigal is a 58 y.o. female without prior cardiac history however she has a history of hypertension, TIA, panic attacks, sleep apnea and prior history of smoking. The patient states that she had high blood pressure for a long time however recently her blood pressure has been going up. She states that after the of her 2 years ago she gained about 50 pounds. Recently on 04/22/2024 she went to the hospital because she was not feeling well and not having clear head without actual dizziness or headache and without any chest pain or shortness of breath and she found that her blood pressure was extremely high above 200. She was started on IV Cardene. Due to positive D-dimer she had a chest CTA which showed moderate calcification of the coronary artery in addition to lung nodule but no PE. She was discharged on Lasix, metoprolol, and amlodipine however she developed side effects to amlodipine and she was started instead on clonidine 0.1 mg at bedtime. She reports feeling very tired and sleepy if she takes clonidine in the morning. Treadmill nuclear stress test was ordered, she had baseline EKG changes which became more prominent with exercise however she did not have any chest discomfort. The nuclear images were within normal limits. The patient stated that she was very sedentary before that and she started walking now. She denies any chest pain or shortness of breath with ordinary walking but she is short of breath if she walks fast or walks uphill. She denies orthopnea or paroxysmal nocturnal dyspnea or dizziness or palpitations or legs edema. She wears CPAP during the night however she thinks that it is not as effective after she gained weight. She used to smoke more than 1 pack/day since she was 11 years ago and she stopped 2 years ago. She used to drink alcohol relatively large amount on the weekends however she stopped also 2 weeks ago. No history of illicit drugs. No significant cardiac history in the family. She had history of lung cancer in the family. Review of systems: All systems were reviewed and they were negative except for the positive findings noted above in the history Past Medical History She has a past medical history of Abnormal ECG, Diabetes mellitus (CMS/HCC), Hyperlipidemia, Hypertension, Obstructive sleep apnea, Panic attacks, and Stroke (CMS/HCC). Surgical History She has a past surgical history that includes Cerebral angiogram; Tubal ligation; Hysterectomy; and Cholecystectomy. Social History She reports that she quit smoking about 2 years ago. Her smoking use included cigarettes. She has a 45.00 pack-year smoking history. She has never used smokeless tobacco. She reports that she does not currently use alcohol. She reports that she does not use drugs. Family History Family History Problem Relation Name Age of Onset Lung cancer Mother No Known Problems Father Lung cancer Sister Allergies Xanax [alprazolam] Medications Current Outpatient Medications: amitriptyline (Elavil) 100 mg tablet, Take 100 mg by mouth in the morning., Disp: , Rfl: aspirin 81 mg EC tablet, Take 81 mg by mouth in the morning., Disp: , Rfl: cloNIDine (Catapres) 0.1 mg tablet, Take 0.1 mg by mouth once daily as directed., Disp: , Rfl: Lasix 20 mg tablet, Take 20 mg by mouth in the morning., Disp: , Rfl: LORazepam (Ativan) 0.5 mg tablet, 1 to 2 tablets Orally QID PRN for 30 days, Disp: , Rfl: metFORMIN (Glucophage) 500 mg tablet, Take 500 mg by mouth with breakfast and with evening meal., Disp: , Rfl: Protonix 40 mg EC tablet, Take 40 mg by mouth if needed each day., Disp: , Rfl: QUEtiapine (SEROquel) 25 mg tablet, Take 25 mg by mouth at bedtime., Disp: , Rfl: carvedilol (Coreg) 25 mg tablet, Take 1 tablet (25 mg) by mouth with breakfast and with evening meal., Disp: 60 tablet, Rfl: 11 Last Recorded Vitals Visit Vitals BP 173/70 (BP Location: Left arm, Patient Position: Sitting) Pulse 60 Ht 1.6 m (5' 3 ) Wt 97.5 kg (215 lb) SpO2 95% BMI 38.09 kg/m??? Smoking Status Former BSA 2.08 m??? Physical Examination: GENERAL: alert and oriented x3, well developed, in no acute distress. HEAD: atraumatic, normocephalic. EYES: CINDY, EOMI. NECK: trachea midline, no JVD present, no carotid bruits present. CARDIAC: S1, S2 present. RRR. Systolic ejection murmur 2/6, short on aortic area RESPIRATORY: CTAB, no increased effort of breathing, no rales, rhonchi, or wheezing. ABDOMEN: soft, nontender, nondistended. EXTREMITIES: no lower extremity edema, peripheral pulses are 2+ bilaterally. No rash/skin discoloration present. NEURO: strength/sensation equal and symmetric in bilateral upper and lower extremities. PSYCH: appropriate mood, (more content not included)... [facility] Clinical Note 11-25-2022 Note Date & Type [...] 10 years. CC: Kendra Murillo M.D. [facility] Clinical Note 10-11-2022 Note Date [...] 1 tab(s), Oral, (more content not included)... [facility] Comment on above: Result Comment: Elec tronically Signed By: DIPESH BUCKNER, Umm Valente.germania\Date and Time Signed: 10/11/22 11:01 EST Evaluation + Plan note Note Date & Type Note Facility Evaluation + Plan note No data available for this section [facility] Discharge instructions Note Date & Type Note Facility Hospital Discharge instructions No data available for this section [facility] Progress note Note Date & Type Note Facility Progress note No data available for this section [facility] Summary Purpose Family History No Family History Records FoundNo Family History Records FoundNo Family History Records FoundNo Family History Records Found Advance Directives No Advanced Directives Records FoundNo Advanced Directives Records FoundNo Advanced Directives Records FoundNo Advanced Directives Records Found Additional Source Comments INFORMATION SOURCE (unrecogn ized section and content) DATE CREATED AUTHOR 12/17/2021 [facility] DATE CREATED AUTHOR AUTHOR'S ORGANIZ ATION 12/16/2022 [facility] DATE CREATED AUTHOR AUTHOR'S ORGANIZ ATION 03/26/2023 [facility] DATE CREATED AUTHOR AUTHOR'S ORGANIZ ATION 05/27/2024 [facility] Patient Care team informatio n (unrecognized section and content) Personnel Name: Kendra Murillo MD Address: Address: [address] [place] [address] Personnel Name: Kendra Murillo MD Address: Address: [address] [place] [address] FOR RECORDS PERTAINING TO PATIENTS WHO ARE [...] BE BASED ON THE PRIMARY CLINICAL RECORDS. [employer] [facility]. provides no warranty or guarantee of the accuracy or completeness of information in this document.
--- NOTE | 2024-06-13 08:35 | XR_ITS ---
The [address] [address] Patient Name: MILAN RASMUSSEN MRN: [id number] date: 1965 Sex: F Assigned Patient Location: ER Current Patient Location: ER Accession/Order Number: [id number] Exam Date: 06/13/2024 08:30 Report Date: 06/13/2024 08:50 At the request of: ANNA JONES Procedure: XR chest 1V EXAM: XR chest 1V HISTORY: . sob . COMPARISON: 04/21/2024 TECHNIQUE: Single view of the chest FINDINGS: Heart and vascularity are unremarkable. Lungs are free of focal infiltrates. Atherosclerotic changes of the thoracic aorta are noted. EKG leads overlie the chest. XR/XR chest 1V IMPRESSION: No acute heart or lung disease identified. Electronically authenticated by: ADELIA NAGEL Date: 06/13/2024 08:50
--- NOTE | 2024-06-13 08:38 | ED.GENADUL1 ---
HPI HPI - General Adult General Chief complaint: Shortness of Breath/Dyspnea Stated complaint: HIGH BLOOD PRESSURE/ SHORTNESS OF BREATH Time Seen by Provider: 06/13/24 08:14 Source: patient Mode of arrival: walk-in Limitations: no limitations History of Present Illness HPI narrative: The patient coming to the ER with a main concern of blood pressure control, patient admits that her blood pressure affected sometimes by her anxiety but she also mentioned that her medication has been changed over the last month multiple times. Initially her residence life coordinator stopped her clonidine and her metoprolol and started her on Coreg but she did not like how it is controlling her blood pressure and she stopped the Coreg and started herself again and metoprolol and clonidine. Patient has been taking metoprolol for a few years but recently in April when she was admitted for high blood pressure she was started on amlodipine after which she had some side effect and she was switched to clonidine The patient at the moment denying any chest pain nausea vomiting or any other concern but she mentioned her main concern is just feeling not well she have a chronic shortness of breath that has been getting worked up for since April with a negative stress test Related Data Home Medications ?Medication ?Instructions ?Recorded ?Confirmed metoprolol tartrate 100 mg tablet 100 mg PO Q12H 08/13/23 06/13/24 metformin 500 mg tablet 500 mg PO BID 04/21/24 06/13/24 aspirin 81 mg capsule 81 mg PO DAILY 04/22/24 06/13/24 furosemide 20 mg tablet (Lasix) 20 mg PO DAILY 04/22/24 06/13/24 lorazepam 0.5 mg tablet (Ativan) 0.25 mg PO Q8H PRN panic attack(s) 04/22/24 06/13/24 clonidine HCl 0.1 mg tablet 0.1 mg PO Q12H 06/13/24 06/13/24 Allergies Allergy/AdvReac Type Severity Reaction Status Date / Time alprazolam [From Xanax] AdvReac Severe Watery Eye Verified 04/22/24 03:41 Opioid HPI Opioid Management Most Recent Opioid Data: Last Pain Scale 4 04/23/24 00:00 Last ORT Total Score 0 04/22/24 01:02 Last ORT Risk Category Low Risk 04/22/24 01:02 Review of Systems ROS Status of ROS 10 or more systems reviewed and unremarkable except as noted in history and below PFSH PFSH Medical History (Updated 06/13/24 @ 09:40 by Theresa Baron MD) Shortness of breath ?R06.02 - Shortness of breath (ICD-10) Headache ?R51.9 - Headache, unspecified (ICD-10) Elevated d-dimer ?R79.89 - Other specified abnormal findings of blood chemistry (ICD-10) Hypertensive emergency ?I16.1 - Hypertensive emergency (ICD-10) Uncontrolled hypertension ?I10 - Essential (primary) hypertension (ICD-10) Irritable bowel syndrome ?K58.9 - Irritable bowel syndrome without diarrhea (ICD-10) H/O nephrolithotomy with removal of calculi ?Z98.890 - Other specified postprocedural states (ICD-10) ?Z87.442 - Personal history of urinary calculi (ICD-10) Kidney stone ?N20.0 - Calculus of kidney (ICD-10) Sepsis ?A41.9 - Sepsis, unspecified organism (ICD-10) H/O angiography ?Z92.89 - Personal history of other medical treatment (ICD-10) Lung nodule ?R91.1 - Solitary pulmonary nodule (ICD-10) Anxiety ?F41.9 - Anxiety disorder, unspecified (ICD-10) HTN (hypertension) ?I10 - Essential (primary) hypertension (ICD-10) Diabetes ?E11.9 - Type 2 diabetes mellitus without complications (ICD-10) TIA (transient ischemic attack) ?G45.9 - Transient cerebral ischemic attack, unspecified (ICD-10) Surgical History (Updated 04/22/24 @ 01:20 by Stalin Kevin) History of appendectomy ?Z90.49 - Acquired absence of other specified parts of digestive tract (ICD-10) H/O tubal ligation ?Z98.51 - Tubal ligation status (ICD-10) History of cholecystectomy ?Z90.49 - Acquired absence of other specified parts of digestive tract (ICD-10) Family History (Updated 04/22/24 @ 01:15 by Stalin Kevin) Mother Family history of cancer Father MVA (motor vehicle accident) Brother Family history of stroke Social History (Updated 04/22/24 @ 01:26 by Stalin Kevin) Within the past year, how often did you have a drink containing alcohol: never Within the past year, how often did you have six or more drinks on one occasion: never Score interpretation: A score less than 3 is consistent with normal alcohol consumption. Smoking status: Former smoker Second hand tobacco smoke exposure: No Non-prescribed substance use: denies use Previous occupational history: no Known occupational exposures/hazards: No Highest level of school completed/degree received: high school graduate Do you want help with school or training: No Are you now , , , , never or living with a partner: In a typical week, how many times do you talk on the telephone with family, friends, or neighbors: 3 or more times per week How often do you get together with friends or relatives: 3 or more times per week How often do you attend pentecostalism or gnosticism services: never Do you belong to any clubs or organizations such as pentecostalism groups unions, fraternal or athletic groups, or school groups: no Total score: 1 Score interpretation: A score of less than or equal to 1 indicates the most socially isolated. Little interest or pleasure in doing things: not at all Feeling down, depressed, or hopeless: not at all Feel stressed/tense/nervous/anxious/difficulty sleeping: not at all Gender Identity: female Exam Narrative Exam Narrative: Nurses notes and vital signs reviewed and patient is not hypoxic. General: Well-appearing and in no apparent distress. Skin: Warm, dry, no pallor noted. No rash. Head: Normocephalic, atraumatic. Neck: Supple, non-tender. Eye: Pupils are equal, round and EOMI. No scleral icterus. Ears, Nose, Mouth, and Throat: TM are clear, no nasal mucosal hypertrophy. Oral mucosa is moist, no posterior oropharynx erythema, uvula is mid-line Cardiovascular: Regular Rate and Rhythm without murmur, gallop or rub. Respiratory: No accessory muscle use or respiratory distress. Lungs are clear to auscultation, no wheezing, rales or rhonchi Chest Wall: no tenderness Back: No midline thoracic or lumbar vertebral tenderness. No CVA tenderness Musculoskeletal: normal ROM, no calf or popliteal tenderness, no lower extremity edema/swelling GI: Abdomen is soft, non-distended. Normal bowel sounds. No masses appreciated. No tenderness to palpation. No rebound, guarding, or rigidity noted. Neurological: A&O x4. No cranial nerve dysfunction observed. No truncal ataxia. Moves all extremities. Sensation intact. Psychiatric: Cooperative and interactive. Normal mood and affect. Constitutional Vital Signs, click to edit/add: Last Vital Signs Temp 98.1 F 06/13/24 08:02 Pulse 54 L 06/13/24 09:33 Resp 18 06/13/24 09:33 BP 162/70 H 06/13/24 09:33 Pulse Ox 98 06/13/24 08:16 O2 Del Method Room Air 06/13/24 08:10 Course Vital Signs Vital signs: Vital Signs Temperature 98.1 F 06/13/24 08:02 Pulse Rate 56 L 06/13/24 08:02 Respiratory Rate 20 06/13/24 08:02 Blood Pressure 180/94 H 06/13/24 08:02 Pulse Oximetry 98 06/13/24 08:02 Oxygen Delivery Method Room Air 06/13/24 08:02 Temperature 98.1 F 06/13/24 08:02 Pulse Rate 54 L 06/13/24 09:33 Respiratory Rate 18 06/13/24 09:33 Blood Pressure 162/70 H 06/13/24 09:33 Pulse Oximetry 98 06/13/24 08:16 Oxygen Delivery Method Room Air 06/13/24 08:10 Medical Decision Making MDM Narrative Medical decision making narrative: EKG showing sinus rhythm with a heart rate of 55 and there is T wave inversion in lead aVL as well as lead V6 that were seen and old EKG The patient is coming to the ER after she recently had some change in her blood pressure it is noted that the patient is very anxious, she did mention that she take her Ativan usually daily with her medication It was noted that the patient also recently changed her medication after she is seen the residence life coordinator and he advised her to stop the clonidine but she restarted herself on that The patient CBC chemistry chest x-ray as well as troponin all showed no acute pathology The patient blood pressure right now is 162/70 and with the fact that she only has been starting again her clonidine 7 days ago, I advised her just to follow-up with her primary care doctor as it seems that the patient does not have any optimal treatment she had never been on hydrochlorothiazide and it is not known if she was treated with other blood pressure medication and she ended up using clonidine. Specially that her residence life coordinator stopped the medication and the reasoning is not given to me right now why it was stopped Right now the patient was discharged to follow-up with her primary care doctor as outpatient The patient is to follow up with primary care physician in next 2-3 days or to return to the emergency department should any of the signs or symptoms worsen or new symptoms develop. The patient agrees with the following Diagnosis and Treatment plan and the patient will be discharged home. Lab Data Labs: Lab Results 06/13/24 Range/Units 08:44 WBC 6.7 (4.0-11.0) 10^3/uL RBC 4.97 (4.20-5.40) 10^6/uL Hgb 13.6 (12.0-16.0) g/dL Hct 42.3 (36.0-48.0) % MCV 85.1 (81.0-99.0) fL MCH 27.4 (26.7-34.0) pg MCHC 32.2 (29.9-35.2) g/dL RDW 14.5 (11.0-15.0) % Plt Count 236 (150-450) 10^3/uL MPV 10.0 (9.5-13.5) fL Neut % (Auto) 63.2 (43.0-75.0) % Lymph % (Auto) 26.5 (20.5-60.0) % [place] % (Auto) 6.3 (1.7-12.0) % Eos % (Auto) 3.0 (0.9-7.0) % Baso % (Auto) 0.9 (0.2-2.0) % Neut # (Auto) 4.2 (1.4-6.5) 10^3/uL Lymph # (Auto) 1.8 (1.2-3.8) 10^3/uL [place] # (Auto) 0.4 (0.3-0.8) 10^3/uL Eos # (Auto) 0.2 (0.0-0.7) 10^3/uL Baso # (Auto) 0.1 (0.0-0.1) 10^3/uL Abs Immat Gran (auto) 0.01 (0.00-0.03) 10^3/uL Imm/Tot Granulo (auto) 0.1 (0.0-0.5) % PT 9.6 (9.0-11.6) sec INR <0.93 Sodium 142 (136-145) mmol/L Potassium 3.8 (3.5-5.1) mmol/L Chloride 104 (98-107) mmol/L Carbon Dioxide 27.8 (21.0-32.0) mmol/L Anion Gap 14.0 BUN 15.0 (7.0-18.0) mg/dL Creatinine 1.05 H (0.55-1.02) mg/dL Est GFR ( Amer) >60 (>=60) Est GFR (Non-Af Amer) 54 L (>=60) BUN/Creatinine Ratio 14.3 Glucose 130 H (74-106) mg/dL Calcium 8.9 (8.5-10.1) mg/dL Total Bilirubin 0.4 (0.2-1.0) mg/dL AST 27 (15-37) U/L ALT 60 H (14-59) U/L Alkaline Phosphatase 86 (46-116) U/L Troponin I High Sens 7.8 (4.0-51.3) pg/mL Total Protein 7.1 (6.4-8.2) g/dL Albumin 3.5 (3.4-5.0) g/dL Globulin 3.6 g/dL Albumin/Globulin Ratio 1.0 Discharge Plan Discharge Stand Alone Forms: Portal Instructions Chief Complaint: Shortness of Breath/Dyspnea Clinical Impression: HTN (hypertension) Qualifiers: Hypertension type: unspecified Qualified Code(s): I10 - Essential (primary) hypertension Patient Disposition: Home, Self-Care Time of Disposition Decision: 09:40 Condition: Good Prescriptions / Home Meds: No Action metoprolol tartrate 100 mg tablet 100 mg PO Q12H metformin 500 mg tablet 500 mg PO BID lorazepam [Ativan] 0.5 mg tablet 0.25 mg PO Q8H PRN (Reason: panic attack(s)) Patient Comments: Takes 0.25 mg when she has panic attacks and can take additional 0.25 mg if needed aspirin 81 mg capsule 81 mg PO DAILY furosemide [Lasix] 20 mg tablet 20 mg PO DAILY clonidine HCl 0.1 mg tablet 0.1 mg PO Q12H Print Language: German Instructions: Hypertension (ED) Referrals: Carlito Murillo MD [Primary Care Provider] - 1 week Discharge Date/Time: 06/13/24 09:47
[2024-06-13 08:51] LABS: Basophils Absolute Auto 0.1 10^3/uL (0.0-0.1); Basophils Percent Auto 0.9 % (0.2-2.0); Eosinophils Absolute Auto 0.2 10^3/uL (0.0-0.7); Hematocrit 42.3 % (36.0-48.0); Hemoglobin 13.6 g/dL (12.0-16.0); Immature Granulocytes Abs Auto 0.01 10^3/uL (0.00-0.03); Immature Granulocytes Pct Auto 0.1 % (0.0-0.5); Lymphocytes Absolute Auto 1.8 10^3/uL (1.2-3.8); Lymphocytes Percent Auto 26.5 % (20.5-60.0); Mean Corpuscular HGB Conc 32.2 g/dL (29.9-35.2); Mean Corpuscular Hemoglobin 27.4 pg (26.7-34.0); Mean Corpuscular Volume 85.1 fL (81.0-99.0); Monocytes Absolute Auto 0.4 10^3/uL (0.3-0.8); Monocytes Percent Auto 6.3 % (1.7-12.0); Neutrophils Absolute Auto 4.2 10^3/uL (1.4-6.5); Neutrophils Percent Auto 63.2 % (43.0-75.0); Platelet Count 236 10^3/uL (150-450); Red Blood Count 4.97 10^6/uL (4.20-5.40); Red Cell Distribution Width 14.5 % (11.0-15.0); White Blood Count 6.7 10^3/uL (4.0-11.0)
[2024-06-13 09:09] LABS: Prothrombin Time 9.6 sec (9.0-11.6)
[2024-06-13 09:11] LABS: Alanine Aminotransferase 60 U/L (14-59); Albumin Level 3.5 g/dL (3.4-5.0); Alkaline Phosphatase 86 U/L (46-116); Aspartate Amino Transferase 27 U/L (15-37); BUN Creatinine Ratio 14.3; Bilirubin Total 0.4 mg/dL (0.2-1.0); Calcium 8.9 mg/dL (8.5-10.1); Carbon Dioxide 27.8 mmol/L (21.0-32.0); Chloride 104 mmol/L (98-107); Estimated GFR (African America >60 (>=60); Estimated GFR (Non-African Ame 54 (>=60); Globulin 3.6 g/dL; Glucose 130 mg/dL (74-106); Potassium 3.8 mmol/L (3.5-5.1); Sodium 142 mmol/L (136-145); Total Protein 7.1 g/dL (6.4-8.2); Troponin I High Sensitivity 7.8 pg/mL (4.0-51.3)
[2024-06-13 09:12] LABS: INR <0.93
== END 2024-06-13 09:47 | disposition home or self-care (01) ==
PROVIDERS: Emergency Provider Emergency Medicine; PCP Family Medicine
DX: I10 Essential (primary) hypertension (principal); Z79.899 Other long term (current) drug therapy; Z87.891 Personal history of nicotine dependence
CPT/HCPCS: 36415; 71045; 80053; 83880; 84484; 85025; 85610; 93005; 99285

== ENCOUNTER 2024-06-17 17:26 | Emergency (ER) | payer MEDICAID, SELFPAY ==
[2024-06-17] VITALS (30 sets, daily range): BP systolic 170–214; BP diastolic 59–93; PULSE 52–81; O2SAT 93–99; BMI 38.1
--- OUTSIDE RECORDS SUMMARY | 2024-06-17 17:32 | XMS_ITS | CCD ---
Author Organization [facility] Care Team Providers Care Lye Treater Name Role Phone Kendra Murillo Primary Care Physician [phone] Umm MARTÍNEZ Attending Unavailable NILL, Umm Michael [...] HOY ., DR GARDNER Primary Care Unavailable FOND DU LAC, DR ADELIA Medrano Consulting Unavailable BIJAN MITCHELL Attending Unavailable Allergies Allergy Classification Reported Allergen(s) Allergy Type Date of Onset Reaction(s) Facility (1 source) No Known Medication Allergies; 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: [No Known Medication Allergies] Propensity to adverse reactions (disorder) [facility] Repository (1 source) ALPRAZolam; 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: [ALPRAZOLAM] Drug Allergy 4 [facility] Repository Medications Current Medications Medication Drug [...] Coronary arteriosclerosis; 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: [Atherosclerotic heart disease of morongo coronary artery without angina pectoris] Onset: 11-26-2022 [...] 11-26-2022 12-20-2019 Episodic Other aftercare (1 source) 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 aspirin; 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: [SENIOR LIVING CURRENT USE OF ASPIRIN] Onset: 11-26-2022 Episodic Other aftercare (1 source) 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; 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: [OTH SENIOR LIVING CURRENT DRUG THERAPY] Onset: 11-26-2022 Episodic Other [...] Range Facility Office Visiton 05-26-2024 Follow-up visit [id number] Aby Madrigal 1965 F Date Provider Department Center 05/26/2024 [id number] VAZQUEZ [facility] Family History Problem Relation Age of Onset Lung cancer Mother No Known Problems Father Lung cancer Sister Family Status - Relation Status Age at Mother Father Sister Level of Service:[address] [place] OFFICE/OUTPATIENT NEW MODERATE MDM 45 MINUTES Normal [facility] Outside Colonoscopyon 2022 Outside Colonoscopy [id number] .00CD:127 Normal [facility] Reminderson 11-27-2022 Reminders - From: Na Hayes LPN To: GSN - Clinical; Sent: 11/27/2022 12:46:10 EST Show up: 10/25/2032 07:00:00 EST Subject: colonoscopy recall Due Date/Time: 11/25/2032 07:00:00 EST Reminder/Recall Patient is due for screening colonoscopy 11/25/2032. Normal [facility] Lab Reportson 11-24-2022 Lab Reports [id number] .00CD:127 Normal [facility] Covid-19 PCR (CVDTB)on 10-24 SARS-CoV-2 (COVID-19) RNA BECK+probe Ql (Unsp spec) Not detected Normal NOT DETECTED [facility] Comment on above: Result Comment: This test is not yet approved or cleared by the [place] FDA. When there are no FDA-approved or cleared tests available, and other criteria are met, FDA can make tests available under an emergency access mechanism called an Emergency Use Authorization (EUA). The EUA for this test is supported by the [place] of Health and Human Service's (HHS's) declaration [...] consistent with SARS-CoV-2. Performed By: #### C [facility] #### [facility] [address] [place] [address] Dr. Rich Cutler Consent for Procedure/Surger yon 10-07-2022 Consent for Procedure/Surgery [id number] .00CD:127 Normal [facility] Ambulatory Visit Summaryon 1 12-06-2021 Ambulatory [...] for. Allergic conjunctivitis Anticoagulated Kidney stones Normal [facility] VC VENOUS REFLUX NINO LMTon 1 12-02-2021 VC VENOUS REFLUX NINO LMT Patient: ABY MADRIGAL Exam Date: 10/02/2022 : 1965 Gender:F Ordering : DR KENDRA MURILLO . Admission #: [id number] Family : Order #: [id number] CLICK HERE TO VIEW EXAM RADIOLOGY REPORT [...] chronic thrombus visualized Compressibility: Normal Flow: Normal Photogrammetric Surveyor: Dist/med calf 3.3mm with 0s reflux. Tech Note: Incompetent SFJ and GSV. Patent varicose vein mid/med calf 2.9mm with 0s reflux. Patent varicose vein prox/post calf 3.8mm with 0s reflux. Patent varicose vein dist/med thigh 3.8mm with 2.0s reflux. CONCLUSION: 1. Mild right and igke-og-efzxvkhw left great saphenous vein venous insufficiency with dilatation 2. Left saphenous popliteal junction reflux 3. Mild left anterior accessory saphenous vein venous insufficiency without dilatation 4. Small bilateral incompetent varicose veins Dictated by: Adelia Lezama MD on 10/02/2022 at 13:36 Approved by: Adelia Lezama MD on 10/02/2022 at 13:52 Normal [facility] ECHOCARDIO M/2D COMPLETEon 1 11-30-2021 ECHOCARDIO M/2D COMPLETE Patient: ABY MADRIGAL Exam Date: 09/30/2022 : 1965 Gender:F Ordering : DR KENDRA MURILLO . Admission #: [id number] Family : Order #: [id number] CLICK HERE TO VIEW EXAM ECHOCARDIOGRAM REPORT [...] M.D. on 09/30/2022 at 18:37 Normal [facility] BNPon 09-24-2022 Natriuretic peptide B (Bld) [Mass/Vol] 501.0 pg/mL Normal <=900.0 [facility] Comment on above: Performed By: #### C VDTB #### [facility] [address] [place] [address] [address] Rich Cutler CBC AUTO DIFFon 09-24-2022 BASO # 0.1 103/ul Normal 0.0-0.1 [facility] Comment on above: Performed By: #### C ALEXANDERTB #### [facility] [address] [place] [address] Dr. Rich Cutler Basophils/100 WBC (Bld) 0.8 % Normal 0.2-2.0 [facility] Comment on above: Performed By: #### C VDTBH #### [facility] [address] [place] [address] Dr. Rich Cutler EO # 0.3 103/ul Normal 0.0-0.7 [facility] Comment on above: Performed By: #### C VDTBH #### [facility] [address] [place] [address] Dr. Rich Cutler Eosinophils/100 WBC (Bld) 3.4 % Normal 0.9-7.0 [facility] Comment on above: Performed By: #### C VDTBH #### [facility] [address] [place] [address] Dr. Rich Cutler Erythrocyte distribution width (RBC) [Ratio] 13.3 % Normal 11.0-15.0 [facility] Comment on above: Performed By: #### C VDTBH #### [facility] [address] [place] [address] Dr. Rich Cutler Hematocrit (Bld) [Volume fraction] 40.5 % Normal 36.0-48.0 [facility] Comment on above: Performed By: #### C VDTBH #### [facility] [address] [place] [address] Dr. Rich Cutler Hemoglobin (Bld) [Mass/Vol] 13.1 g/dL Normal 12.0-16.0 [facility] Comment on above: Performed By: #### C VDTBH #### [facility] [address] [place] [address] Dr. Rihc Cutler IG # 0.02 10e3/ul Normal 0.00-0.03 [facility] Comment on above: Performed By: #### C VDTBH #### [facility] [address] [place] [address] Dr. Rich Cutler IG % 0.3 % Normal 0.0-0.5 [facility] Comment on above: Performed By: #### C VDTBH #### [facility] [address] [address] [address] Rich Cutler LYMPH # 2.7 103/ul Normal 1.2-3.8 [facility] Comment on above: Performed By: #### C VDTBH #### [facility] [address] [place] [address] Dr. Rich Cutler Lymphocytes/100 WBC (Bld) 35.4 % Normal 20.5-60.0 [facility] Comment on above: Performed By: #### C VDTBH #### [facility] [address] [place] [address] Dr. Rich Cutler MANUAL DIFF REQ NO Normal [facility] Comment on above: Performed By: #### C VDTBH #### [facility] [address] [place] [address] Dr. Rich Cutler MCH (RBC) [Entitic mass] 28.2 pg Normal 26.7-34.0 [facility] Comment on above: Performed By: #### C VDTBH #### [facility] [address] [place] [address] Dr. Rich Cutler MCHC (RBC) [Mass/Vol] 32.3 g/dL Normal 29.9-35.2 [facility] Comment on above: Performed By: #### C VDTBH #### [facility] [address] [place] [address] Dr. Rich Cutler MCV (RBC) [Entitic vol] 87.3 fL Normal 81.0-99.0 [facility] Comment on above: Performed By: #### C VDTBH #### [facility] [address] [place] [address] Dr. Rich Cutler MONO # 0.5 103/ul Normal 0.3-0.8 [facility] Comment on above: Performed By: #### C VDTBH #### [facility] [address] [place] [address] Dr. Rich Cutler Monocytes/100 WBC (Bld) 6.5 % Normal 1.7-12.0 [facility] Comment on above: Performed By: #### C VDTBH #### [facility] [address] [address] [address] Rich Cutler NEUT # 4.1 103/ul Normal 1.4-6.5 [facility] Comment on above: Performed By: #### C VDTBH #### [facility] [address] [address] [address] Rich Cutler Neutrophils/100 WBC (Bld) 53.6 % Normal 43.0-75.0 [facility] Comment on above: Performed By: #### C VDTBH #### [facility] [address] [place] [address] Dr. Rich Cutler Platelet mean volume (Bld) [Entitic vol] 10.3 fL Normal 9.5-13.5 [facility] Comment on above: Performed By: #### C VDTBH #### [facility] [address] [place] [address] Dr. Rich Cutler PLT 283 103/ul Normal 150-450 [facility] Comment on above: Performed By: #### C VDTBH #### [facility] [address] [place] [address] Dr. Rich Cutler RBC 4.64 106/ul Normal 4.20-5.40 [facility] Comment on above: Performed By: #### C VDTBH #### [facility] [address] [place] [address] Dr. Rich Cutler WBC 7.6 103/ul Normal 4.0-11.0 [facility] Comment on above: Performed By: #### C VDTBH #### [facility] [address] [place] [address] Dr. Rich Cutler INSULINon 09-24-2022 Insulin 15.1 uIU/mL Normal 2.6-24.9 [facility] Comment on above: Performed By: #### C VDTBH #### [facility] [address] [place] [address] Dr. Rich Cutler PROF 14(COMP METB)on 022 Albumin [Mass/Vol] 3.5 g/dL Normal 3.4-5.0 [facility] Comment on above: Performed By: #### C VDTBH #### [facility] [address] [address] [address] Rich Cutler Albumin/Globulin [Mass ratio] 1.0 {ratio} Normal [facility] Comment on above: Performed By: #### C VDTBH #### [facility] [address] [address] [address] Rich Cutler ALP [Catalytic activity/Vol] 91 U/L Normal 46-116 [facility] Comment on above: Performed By: #### C VDTBH #### [facility] [address] [place] [address] Dr. Rich Cutler ALT [Catalytic activity/Vol] 47 U/L Normal 14-59 [facility] Comment on above: Performed By: #### C VDTBH #### [facility] [address] [place] [address] Dr. Rich Cutler Anion gap [Moles/Vol] 11.7 mmol/L Normal [facility] Comment on above: Performed By: #### C VDTBH #### [facility] [address] [place] [address] Dr. Rich Cutler AST [Catalytic activity/Vol] 24 U/L Normal 15-37 [facility] Comment on above: Performed By: #### C VDTBH #### [facility] [address] [place] [address] Dr. Rich Cutler Bilirubin [Mass/Vol] 0.2 mg/dL Normal 0.2-1.0 [facility] Comment on above: Performed By: #### C VDTBH #### [facility] [address] [address] [address] Rich Cutler Calcium [Mass/Vol] 8.9 mg/dL Normal 8.5-10.1 [facility] Comment on above: Performed By: #### C VDTBH #### [facility] [address] [address] [address] Rich Cutler Chloride [Moles/Vol] 105 mmol/L Normal 98-107 [facility] Comment on above: Performed By: #### C VDTBH #### [facility] [address] [address] [address] Rich Cutler CO2 [Moles/Vol] 28.1 mmol/L Normal 21.0-32.0 [facility] Comment on above: Performed By: #### C VDTBH #### [facility] [address] [address] [address] Rich Cutler Creatinine [Mass/Vol] 1.13 mg/dL Critically high 0.55-1.02 [facility] Comment on above: Performed By: #### C VDTBH #### [facility] [address] [address] [address] Rich Cutler EGFR-AF BURUNDIAN 60 mL/min/1.73m2 Normal >=60 [facility] Comment on above: Performed By: #### C VDTBH #### [facility] [address] [address] [address] Rich Cutler EGFR-NON AF BURUNDIAN 49 mL/min/1.73m2 Critically low >=60 [facility] Comment on above: Performed By: #### C VDTBH #### [facility] [address] [place] [address] Dr. Rich Cutler Globulin (S) [Mass/Vol] 3.5 g/dL Normal [facility] Comment on above: Performed By: #### C VDTBH #### [facility] [address] [address] [address] Rich Cutler Glucose [Mass/Vol] 119 mg/dL Critically high 74-106 T [facility] Comment on above: Performed By: #### C VDTBH #### [facility] [address] [address] [address] Rich Cutler Potassium [Moles/Vol] 3.8 mmol/L Normal 3.5-5.1 [facility] Comment on above: Performed By: #### C VDTBH #### [facility] [address] [address] [address] Rich Cutler Protein [Mass/Vol] 7.0 g/dL Normal 6.4-8.2 [facility] Comment on above: Performed By: #### C VDTBH #### [facility] [address] [place] [address] Dr. Rich Cutler Sodium [Moles/Vol] 141 mmol/L Normal 136-145 [facility] Comment on above: Performed By: #### C VDTBH #### [facility] [address] [place] [address] Dr. Rich Cutelr Urea nitrogen [Mass/Vol] 16.0 mg/dL Normal 7.0-18.0 [facility] Comment on above: Performed By: #### C VDTBH #### [facility] [address] [place] [address] Dr. Rich Cutler Urea nitrogen/Creatinine [Mass ratio] 14.2 mg/mg Normal [facility] Comment on above: Performed By: #### C VDTBH #### [facility] [address] [place] [address] Dr. Rich Cutler TROPONIN, HIGH SENSITIVITYon 09-24-2022 HSTROP 10.6 pg/mL Normal 4.0-51.3 [facility] Comment on above: Result Comment: CUT- OFF POINTS HAVE BEEN ESTABLISHED BASED ON THE FOURTH UNIVERSAL DEFINITIONS OF MYOCARDIAL INFARCTION. THE UPPER REFERENCE LIMIT (URL) OF TROPONIN, DEFINED THE 99TH PERCENTILE OF cTnI DISTRIBUTION IN A REFERENCE POPULATION, HAS BEEN CONFIRMED THE DECISION THRESHOLD FOR ND DIAGNOSIS. Performed By: #### C VDTBH #### [facility] [address] [place] [address] Dr. Rich Cutler XR CHEST 1 Von [...] UMM HUMPHRIES Date: 2022-09-24 04:08 Normal [facility] CBC AUTO DIFFon 09-23-2022 BASO # 0.1 103/ul Normal 0.0-0.1 [facility] Comment on above: Performed By: #### C BC #### [facility] [address] [address] [address] Rich Cutler Basophils/100 WBC (Bld) 0.8 % Normal 0.2-2.0 [facility] Comment on above: Performed By: #### C BC #### [facility] [address] [address] [address] Rich Cutler EO # 0.2 103/ul Normal 0.0-0.7 [facility] Comment on above: Performed By: #### C BC #### [facility] [address] [place] [address] Dr. Rich Cutler Eosinophils/100 WBC (Bld) 3.5 % Normal 0.9-7.0 [facility] Comment on above: Performed By: #### C BC #### [facility] [address] [place] [address] Dr. Rich Cutler Erythrocyte distribution width (RBC) [Ratio] 13.4 % Normal 11.0-15.0 [facility] Comment on above: Performed By: #### C BC #### [facility] [address] [place] [address] Dr. Rich Cutler Hematocrit (Bld) [Volume fraction] 42.3 % Normal 36.0-48.0 [facility] Comment on above: Performed By: #### C BC #### [facility] [address] [place] [address] Dr. Rich Cutler Hemoglobin (Bld) [Mass/Vol] 13.4 g/dL Normal 12.0-16.0 [facility] Comment on above: Performed By: #### C BC #### [facility] [address] [place] [address] Dr. Rich Cutler IG # 0.03 10e3/ul Normal 0.00-0.03 [facility] Comment on above: Performed By: #### C BC #### [facility] [address] [place] [address] Dr. Rich Cutler IG % 0.5 % Normal 0.0-0.5 [facility] Comment on above: Performed By: #### C BC #### [facility] [address] [place] [address] Dr. Rich Cutler LYMPH # 2.9 103/ul Normal 1.2-3.8 [facility] Comment on above: Performed By: #### C BC #### [facility] [address] [place] [address] Dr. Rich Cutler Lymphocytes/100 WBC (Bld) 44.0 % Normal 20.5-60.0 [facility] Comment on above: Performed By: #### C BC #### [facility] [address] [place] [address] Dr. Rich Cutler MANUAL DIFF REQ NO Normal [facility] Comment on above: Performed By: #### C BC #### [facility] [address] [place] [address] Dr. Rich Cutler MCH (RBC) [Entitic mass] 28.4 pg Normal 26.7-34.0 [facility] Comment on above: Performed By: #### C BC #### [facility] [address] [place] [address] Dr. Rich Cutler MCHC (RBC) [Mass/Vol] 31.7 g/dL Normal 29.9-35.2 [facility] Comment on above: Performed By: #### C BC #### [facility] [address] [place] [address] Dr. Rihc Cutler MCV (RBC) [Entitic vol] 89.6 fL Normal 81.0-99.0 [facility] Comment on above: Performed By: #### C BC #### [facility] [address] [place] [address] Dr. Rich Cutler MONO # 0.4 103/ul Normal 0.3-0.8 [facility] Comment on above: Performed By: #### C BC #### [facility] [address] [place] [address] Dr. Rich Cutler Monocytes/100 WBC (Bld) 6.6 % Normal 1.7-12.0 [facility] Comment on above: Performed By: #### C BC #### [facility] [address] [place] [address] Dr. Rich Cutler NEUT # 2.9 103/ul Normal 1.4-6.5 [facility] Comment on above: Performed By: #### C BC #### [facility] [address] [place] [address] Dr. Rich Cutler Neutrophils/100 WBC (Bld) 44.6 % Normal 43.0-75.0 [facility] Comment on above: Performed By: #### C BC #### [facility] [address] [place] [address] Dr. Rich Cutler Platelet mean volume (Bld) [Entitic vol] 11.0 fL Normal 9.5-13.5 [facility] Comment on above: Performed By: #### C BC #### [facility] [address] [place] [address] Dr. Rich Cutler PLT 272 103/ul Normal 150-450 [facility] Comment on above: Performed By: #### C BC #### [facility] [address] [place] [address] Dr. Rich Cutler RBC 4.72 106/ul Normal 4.20-5.40 [facility] Comment on above: Performed By: #### C BC #### [facility] [address] [place] [address] Dr. Rich Cutler WBC 6.5 103/ul Normal 4.0-11.0 [facility] Comment on above: Performed By: #### C BC #### [facility] [address] [place] [address] Dr. Rich Cutler FREE THYROXINE INDEX T7on FTI 2.16 Normal 1.30-4.50 [facility] Comment on above: Performed By: #### L IPID, TSH, T7, CMP #### [facility] [address] [place] [address] Dr. Rich Cutler T3U 30.0 % Normal 30.0-39.0 [facility] Comment on above: Performed By: #### L IPID, TSH, T7, CMP #### [facility] [address] [address] [address] Rich Cutler T4 [Mass/Vol] 7.20 ug/dL Normal 4.80-13.90 [facility] Comment on above: Performed By: #### L IPID, TSH, T7, CMP #### [facility] [address] [address] [address] Rich Cutler GLYCOHEMOGLOBIN A1Con 2021 ADA RECOMMENDATION SEE BELOW Normal [facility] Comment on above: Result Comment: ADA RECOMMENDED LIMIT 4.0 - 6.0 ADA THERAPEUTIC TARGET < 7.0 ACTION SUGGESTED > 7.0 Performed By: #### A 1C #### [facility] [address] [place] [address] Dr. Rich Cutler Glucose [Mass/Vol] 128 mg/dL Normal [facility] Comment on above: Performed By: #### A 1C #### [facility] [address] [address] [address] Rich Cutler HbA1c (Bld) [Mass fraction] 6.1 % Normal 4.5-6.2 [facility] Comment on above: Performed By: #### A 1C #### [facility] [address] [place] [address] Dr. Rich Cutler IRONon 09-23-2022 Iron [Mass/Vol] 64.0 ug/dL Normal 50.0-170.0 [facility] Comment on above: Performed By: #### C VDTBH #### [facility] [address] [address] [address] Rich Cutler LIPID PROFILEon 09-23-2022 CHOL-HDL RATIO NORM SEE BELOW Normal [facility] Comment on above: Result Comment: 3.3 - 4.4 LOW RISK 4.4 - 7.1 AVERAGE RISK 7.1 - 11.0 MODERATE RISK >11.0 HIGH RISK Performed By: #### L IPID, TSH, T7, CMP #### [facility] [address] [address] [address] Rich Cutler Cholesterol [Mass/Vol] 237 mg/dL Critically high <=200 [facility] Comment on above: Performed By: #### L IPID, TSH, T7, CMP #### [facility] [address] [address] [address] Rich Cutler Cholesterol in HDL [Mass/Vol] 44 mg/dL Normal 40-60 [facility] Comment on above: Performed By: #### L IPID, TSH, T7, CMP #### [facility] [address] [address] [address] Rich Cutler Cholesterol in LDL [Mass/Vol] 172.2 mg/dL Normal [facility] Comment on above: Performed By: #### L IPID, TSH, T7, CMP #### [facility] [address] [place] [address] Dr. Rich Cutler Cholesterol.total/Ch olesterol in HDL [Mass ratio] 5.4 {ratio} Normal [facility] Comment on above: Performed By: #### L IPID, TSH, T7, CMP #### [facility] [address] [address] [address] Rich Cutler HDL NORMAL > or = 60 mg/dl - LO W CARDIOVASCULAR RISK <40 mg/dl - HIGH CARDIOVASCULAR RISK Normal [facility] Comment on above: Performed By: #### L IPID, TSH, T7, CMP #### [facility] [address] [address] [address] Rich Cutler LDL CALC NORMAL SEE BELOW Normal [facility] Comment on above: Result Comment: <100 mg/dl OPTIMAL 100 - 129 mg/dl NEAR OR ABOVE OPTIMAL 130 - 159 mg/dl BORDERLINE HIGH 160 - 189 mg/dl HIGH >190 mg/dl VERY HIGH Performed By: #### L IPID, TSH, T7, CMP #### [facility] [address] [address] [address] Rich Cutler Triglyceride [Mass/Vol] 104 mg/dL Normal <=150 [facility] Comment on above: Performed By: #### L IPID, TSH, T7, CMP #### [facility] [address] [place] [address] Dr. Rich Cutler VLDL CALC 20.8 mg/dL Normal [facility] Comment on above: Performed By: #### L IPID, TSH, T7, CMP #### [facility] [address] [place] [address] Dr. Rich Cutler PROF 14(COMP METB)on 022 Albumin [Mass/Vol] 3.5 g/dL Normal 3.4-5.0 [facility] Comment on above: Performed By: #### L IPID, TSH, T7, CMP #### [facility] [address] [place] [address] Dr. Rich Cutler Albumin/Globulin [Mass ratio] 0.9 {ratio} Normal [facility] Comment on above: Performed By: #### L IPID, TSH, T7, CMP #### [facility] [address] [place] [address] Dr. Rich Cutler ALP [Catalytic activity/Vol] 93 U/L Normal 46-116 [facility] Comment on above: Performed By: #### L IPID, TSH, T7, CMP #### [facility] [address] [place] [address] Dr. Rich Cutler ALT [Catalytic activity/Vol] 44 U/L Normal 14-59 [facility] Comment on above: Performed By: #### L IPID, TSH, T7, CMP #### [facility] [address] [place] [address] Dr. Rich Cutler Anion gap [Moles/Vol] 8.5 mmol/L Normal [facility] Comment on above: Performed By: #### L IPID, TSH, T7, CMP #### [facility] [address] [place] [address] Dr. Rich Cutler AST [Catalytic activity/Vol] 26 U/L Normal 15-37 [facility] Comment on above: Performed By: #### L IPID, TSH, T7, CMP #### [facility] [address] [place] [address] Dr. Rich Cutler Bilirubin [Mass/Vol] 0.3 mg/dL Normal 0.2-1.0 [facility] Comment on above: Performed By: #### L IPID, TSH, T7, CMP #### [facility] [address] [address] [address] Rich Cutler Calcium [Mass/Vol] 9.0 mg/dL Normal 8.5-10.1 [facility] Comment on above: Performed By: #### L IPID, TSH, T7, CMP #### [facility] [address] [place] [address] Dr. Rich Cutler Chloride [Moles/Vol] 106 mmol/L Normal 98-107 [facility] Comment on above: Performed By: #### L IPID, TSH, T7, CMP #### [facility] [address] [place] [address] Dr. Rich Cutler CO2 [Moles/Vol] 31.0 mmol/L Normal 21.0-32.0 [facility] Comment on above: Performed By: #### L IPID, TSH, T7, CMP #### [facility] [address] [place] [address] Dr. Rich Cutler Creatinine [Mass/Vol] 1.11 mg/dL Critically high 0.55-1.02 [facility] Comment on above: Performed By: #### L IPID, TSH, T7, CMP #### [facility] [address] [place] [address] Dr. Rich Cutler EGFR-AF BURUNDIAN >60 Normal >=60 [facility] Comment on above: Performed By: #### L IPID, TSH, T7, CMP #### [facility] [address] [place] [address] Dr. Rich Cutler EGFR-NON AF BURUNDIAN 50 mL/min/1.73m2 Critically low >=60 [facility] Comment on above: Performed By: #### L IPID, TSH, T7, CMP #### [facility] [address] [place] [address] Dr. Rich Cutler Globulin (S) [Mass/Vol] 3.7 g/dL Normal [facility] Comment on above: Performed By: #### L IPID, TSH, T7, CMP #### [facility] [address] [place] [address] Dr. Rich Cutler Glucose [Mass/Vol] 121 mg/dL Critically high 74-106 [facility] Comment on above: Performed By: #### L IPID, TSH, T7, CMP #### [facility] [address] [place] [address] Dr. Rich Cutler Potassium [Moles/Vol] 4.5 mmol/L Normal 3.5-5.1 [facility] Comment on above: Performed By: #### L IPID, TSH, T7, CMP #### [facility] [address] [place] [address] Dr. Rich Cutler Protein [Mass/Vol] 7.2 g/dL Normal 6.4-8.2 [facility] Comment on above: Performed By: #### L IPID, TSH, T7, CMP #### [facility] [address] [place] [address] Dr. Rich Cutler Sodium [Moles/Vol] 141 mmol/L Normal 136-145 [facility] Comment on above: Performed By: #### L IPID, TSH, T7, CMP #### [facility] [address] [place] [address] Dr. Rich Cutler Urea nitrogen [Mass/Vol] 16.0 mg/dL Normal 7.0-18.0 [facility] Comment on above: Performed By: #### L IPID, TSH, T7, CMP #### [facility] [address] [place] [address] Dr. Rich Cutler Urea nitrogen/Creatinine [Mass ratio] 14.4 mg/mg Normal [facility] Comment on above: Performed By: #### L IPID, TSH, T7, CMP #### [facility] [address] [place] [address] Dr. Rich Cutler TSHon 09-23-2022 TSH 3.915 uIU/mL Critically high 0.358-3.740 [facility] Comment on above: Performed By: #### L IPID, TSH, T7, CMP #### [facility] [address] [address] [address] Rich Cutler Physician Referralon 022 Physician Referral [phone] [id number] Normal [facility] Lipid Panelon 10-07-2021 Cholesterol [Mass/Vol] 205 mg/dL High 140-200 [facility] Comment on above: Result Comment: Chol less than 200 mg/dl low risk Chol 201-239 mg/dl borderline risk Chol 240 mg/dl and greater high risk Performed By: #### L IPID, [id number], TSH3 wRFLX #### [facility] [address] [place] [address] [place] Cholesterol in HDL [Mass/Vol] 25 mg/dL Low 35-85 [facility] Comment on above: Result Comment: HDL CHOL ATP-III CLASSIFICATION Cardiovascular Risk HDL > or equal to 60 mg/dL LOW HDL < 40 mg/dL HIGH Performed By: #### L IPID, [id number], TSH3 wRFLX #### [facility] [address] [place] [address] [place] Cholesterol.total/Ch olesterol in HDL [Mass ratio] 8.2 {ratio} Normal <5.0 [facility] Comment on above: Performed By: #### L IPID, [id number], TSH3 wRFLX #### [facility] [address] [id number] [place] LDL Cholesterol,Calculat ed 160 mg/dL High 0-100 [facility] Comment on above: Result Comment: LDL ATP III CLASSIFICATION LDL less than 100 mg/dL Optimal LDL 100-129 mg/dL Near or above optimal LDL 130-159 mg/dL Borderline high LDL 160-189 mg/dL High LDL greater than 189 mg/dL Very high Performed By: #### L IPID, [id number], TSH3 wRFLX #### [facility] [address] [place] [address] [place] Triglyceride w/Reflex 100 mg/dL Normal 35-149 [facility] Comment on above: Result Comment: TRIG ATP III CLASSIFICATION TRIG less than 150 mg/dL Normal TRIG 150-199 mg/dL Borderline high TRIG 200-500 mg/dL High TRIG greater than 500 mg/dL Very high Standard traceable to the Center for Disease Conrtrol and Prevention (CDC) test method. Performed By: #### L IPID, [id number], TSH3 wRFLX #### [address] VLDL CHOLESTEROL 20 mg/dL Normal [facility] Comment on above: Performed By: #### L IPID, [id number], TSH3 wRFLX #### [address] Thyroid Stim Hormone w/Rflxo n 10-07-2021 Thyroid Stim Hormone w/Rflx 3.27 u[iU]/mL Normal 0.45-5.33 [facility] Comment on above: Performed By: #### L IPID, [id number], TSH3 wRFLX #### [address] Vitamin D 25 Hydroxy Totalon 10-07-2021 Vitamin D 25 Hydroxy Total 26.5 ng/mL Low 30-100 [facility] Comment on above: Result Comment: JACKELINE MIN D STATUS 25(OH)VITAMIN D RANGE (ng/mL) Deficient <20 Insufficient 20 to <30 Sufficient 30 to 100 Reference: Lanny MF,Gino NC, Dyan VALENZUELA, et al. Evaluation,treatment, and prevention of vitamin D deficiency; an Endocrine Society clinical practice guideline. JCEM. 2010; 96(7):1911-30. PERFORMED BY: [place] [address] PATHOLOGIST DOCUMENT SCANNER SILVESTRE SCHULER M.D. Performed By: #### L IPID, [id number], TSH3 wRFLX #### [address] Vital Signs Date Time Vital Sign Value Performing Clinician Deidre gagnon 10-06-2022 15:36-0500 Blood Pressure Location Umm JACQUESMami [facility] 10-06-2022 15:36-0500 Diastolic blood pressure 86 mm[Hg] Umm MARTÍNEZ [facility] 10-06-2022 15:36-0500 Heart rate 72 /min Umm DIPESH [facility] 10-06-2022 15:36-0500 Respiratory rate 16 /min Umm JACQUESMami [facility] 10-06-2022 15:36-0500 Systolic blood pressure 126 mm[Hg] Umm DIPESH [facility] Encounters Encounter Date Encounter Type Care Provider Facility Start: 05-26-2024 End: 05-26-2024 ambulatory [facility] Start: 11-26-2022 Encounter for preprocedural laboratory examination DR UMM MARTÍNEZ . [facility] Start: 11-25-2022 End: 11-26-2022 ambulatory Umm MARTÍNEZ Facility:[id number] Start: 11-20-2022 End: 11-21-[address] UMM MARTÍNEZ . Facility:[facility] Start: 11-20-2022 End: 11-21-2022 Encounter for preprocedural laboratory examination DR UMM MARTÍNEZ . Facility:[facility] Start: 10-06-2022 End: 10-07-2022 ambulatory Umm MARTÍNEZ Facility:[facility] Start: 10-06-2022 End: 10-06-2022 Patient encounter procedure Umm MARTÍNEZ [facility] Start: 10-02-2022 End: 10-03-[address] KENDRA MURILLO . Facility:[facility] Start: 09-30-2022 End: 10-01-[address] KENDRA MURILLO . Facility:[facility] Start: 09-28-2022 Encounter for genera l adult medical examination without abnormal findings DR KENDRA MURILLO . [facility] Start: 09-24-2022 End: 09-24-[address] [...] mRNA BNT-162b2 vax Umm NILL [facility] 03-11-2021 SARS-CoV-2 (COVID-19 ) mRNA BNT-162b2 vax Umm NILL [facility] Payers Date Payer Category Payer Medicaid [id number] 1965 Unknown [id number] 2.16.8 [id number] 1965 Unknown [id number] 2.16.8 [id number] 1965 Unknown [id number] 2.16.84 [id number] 1965 Unknown [id number] 2.16.84 [id number] 1965 Unknown [id number] 2.16.84 [id number] 1965 Unknown [id number] 2.16.84 [id number] 1965 Unknown [id number] 2.16.84 [id number] 1965 Unknown [id number] 2.16.84 [id number] 1965 Unknown [id number] 2.16.84 [id number] 1960 Self-pay [id number] 1960 Unknown [id number] Social History Date Type Detail Facility Start: 10-06-2022 Tobacco smoking status Ex-smoker (fi nding) [facility] Tobacco smoking status Never [facility] Sex Assigned At Female [facility] Functional Status Date Assessment Result Facility 10-06-2022 Functional Status N/A [facility] Progress note 05-26-2024 Note Date & Type Note Facility 05-26-2024 Note [facility] Note Reason for cardiology [...] PSYCH: appropriate mood, (more content not included)... [facility] Clinical Note 11-25-2022 Note Date & Type [...] 10 years. CC: Kendra Murillo M.D. [facility] Clinical Note 10-11-2022 Note Date & [...] 1 tab(s), Oral, (more content not included)... [facility] Comment on above: Result Comment: Elec tronically Signed By: DIPESH BUCKNER, Umm Valente.germania\Date and Time Signed: 10/11/22 11:01 EST Evaluation + Plan note Note Date & Type Note Facility Evaluation + Plan note No data available for this section [facility] Discharge instructions Note Date & Type Note Facility Hospital Discharge instructions No data available for this section [facility] Progress note Note Date & Type Note Facility Progress note No data available for this section [facility] Summary Purpose Family History No Family History [...] AUTHOR AUTHOR'S ORGANIZ ATION 12/16/2022 [facility] DATE CREATED AUTHOR AUTHOR'S ORGANIZ ATION 03/26/[address] [facility] DATE CREATED AUTHOR AUTHOR'S ORGANIZ ATION 05/27/2024 [facility] Patient Care team informatio n (unrecognized section and content) Personnel Name: Kendra Murillo MD Address: Address: [address] [place] [address] Personnel Name: Kendra Murillo MD Address: Address: [address] [place] [address] FOR RECORDS PERTAINING TO PATIENTS WHO ARE [...] BE BASED ON THE PRIMARY CLINICAL RECORDS. [facility]. provides no warranty or guarantee of the accuracy or completeness of information in this document.
--- NOTE | 2024-06-17 17:54 | ECG_ITS ---
[facility] Test Date: 2024-06-17 Pat Name: MILAN RASMUSSEN Department: Room: - Gender: Female [employer]: : 1965 Requested By: KENDRA MORAN Order Number: [id number] Reading MD: KENDRA MORAN Measurements Intervals [place] Rate: 52 P: 56 WI: 160 QRS: 20 QRSD: 96 T: 139 QT: 434 QTc: 414 Interpretive Statements 1100 Sinus rhythm 3114 Cannot rule out anterior myocardial infarction, age undetermined Possible High lateral ischemia 9150 abnormal ECG Compared to ECG 06/13/2024 08:12:58 Myocardial infarct finding now present Electronically Signed On 06-19-2024 7:28:28 EDT by KENDRA MORAN
--- NOTE | 2024-06-17 17:55 | XR_ITS ---
The [address] [address] Patient Name: MILNA RASMUSSEN MRN: [id number] date: 1965 Sex: F Assigned Patient Location: ER Current Patient Location: ED.MAIN Accession/Order Number: [id number] Exam Date: 06/17/2024 18:10 Report Date: 06/17/2024 19:09 At the request of: JOSE BETANCUR Procedure: XR chest 1V CXR HISTORY: Shortness of breath COMPARISON: 06/13/2024 chest x-ray TECHNIQUE: 1 view chest submitted for review. FINDINGS: The lungs are adequately expanded without evidence of acute infiltrate or effusion. The cardiac silhouette measures within normal. Pulmonary vascularity is unremarkable. Osseous structures do not demonstrate any acute abnormality. XR/XR chest 1V IMPRESSION: No plain film evidence for acute cardiopulmonary disease. Electronically authenticated by: VEENA CASTORENA Date: 06/17/2024 19:09
--- NOTE | 2024-06-17 17:55 | ED_ITS ---
HPI HPI - General Adult General Chief complaint: Nausea/Vomiting/Diarrhea Stated complaint: NAUSEA Time Seen by Provider: 06/17/24 17:47 Source: patient Mode of arrival: walk-in Limitations: no limitations History of Present Illness HPI narrative: 58-year-old female presents to the emergency department for concerns about her blood pressure and heart rate. She had been having nausea and vomiting but has not vomited since 3:00 this morning. She states her heart rate was low today in the 40s and she did not take her metoprolol. Now her blood pressure is high. She does not have chest pain or shortness of breath or abdominal pain. No palpitations fever or headache. Related Data Home Medications ?Medication ?Instructions ?Recorded ?Confirmed metoprolol tartrate 100 mg tablet 100 mg PO Q12H 08/13/23 06/17/24 metformin 500 mg tablet 500 mg PO BID 04/21/24 06/17/24 aspirin 81 mg capsule 81 mg PO DAILY 04/22/24 06/17/24 furosemide 20 mg tablet (Lasix) 20 mg PO DAILY 04/22/24 06/17/24 lorazepam 0.5 mg tablet (Ativan) 0.25 mg PO Q8H PRN panic attack(s) 04/22/24 06/17/24 clonidine HCl 0.1 mg tablet 0.1 mg PO Q12H 06/13/24 06/17/24 Allergies Allergy/AdvReac Type Severity Reaction Status Date / Time alprazolam [From Xanax] AdvReac Severe Watery Eye Verified 04/22/24 03:41 Opioid HPI Opioid Management Most Recent Opioid Data: Last Pain Scale 4 04/23/24 00:00 Last ED Pain Assessment 06/17/24 17:46 Last ORT Total Score 0 04/22/24 01:02 Last ORT Risk Category Low Risk 04/22/24 01:02 Review of Systems ROS Narrative A ten point review of systems is negative except as noted above. PFSH [facility] Medical History (Updated 06/17/24 @ 18:42 by Juancarlos Long MD) Shortness of breath ?R06.02 - Shortness of breath (ICD-10) Headache ?R51.9 - Headache, unspecified (ICD-10) Elevated d-dimer ?R79.89 - Other specified abnormal findings of blood chemistry (ICD-10) Hypertensive emergency ?I16.1 - Hypertensive emergency (ICD-10) Uncontrolled hypertension ?I10 - Essential (primary) hypertension (ICD-10) Irritable bowel syndrome ?K58.9 - Irritable bowel syndrome without diarrhea (ICD-10) H/O nephrolithotomy with removal of calculi ?Z98.890 - Other specified postprocedural states (ICD-10) ?Z87.442 - Personal history of urinary calculi (ICD-10) Kidney stone ?N20.0 - Calculus of kidney (ICD-10) Sepsis ?A41.9 - Sepsis, unspecified organism (ICD-10) H/O angiography ?Z92.89 - Personal history of other medical treatment (ICD-10) Lung nodule ?R91.1 - Solitary pulmonary nodule (ICD-10) Anxiety ?F41.9 - Anxiety disorder, unspecified (ICD-10) HTN (hypertension) ?I10 - Essential (primary) hypertension (ICD-10) Diabetes ?E11.9 - Type 2 diabetes mellitus without complications (ICD-10) TIA (transient ischemic attack) ?G45.9 - Transient cerebral ischemic attack, unspecified (ICD-10) Surgical History (Updated 04/22/24 @ 01:20 by Stalin Kevin) History of appendectomy ?Z90.49 - Acquired absence of other specified parts of digestive tract (ICD- 10) H/O tubal ligation ?Z98.51 - Tubal ligation status (ICD-10) History of cholecystectomy ?Z90.49 - Acquired absence of other specified parts of digestive tract (ICD- 10) Family History (Updated 04/22/24 @ 01:15 by Stalin Kevin) Mother Family history of cancer Father MVA (motor vehicle accident) Brother Family history of stroke Social History (Updated 04/22/24 @ 01:26 by Stalin Kevin) Within the past year, how often did you have a drink containing alcohol: never Within the past year, how often did you have six or more drinks on one occasion: never Score interpretation: A score less than 3 is consistent with normal alcohol consumption. Smoking status: Former smoker Second hand tobacco smoke exposure: No Non-prescribed substance use: denies use Previous occupational history: no Known occupational exposures/hazards: No Highest level of school completed/degree received: high school graduate Do you want help with school or training: No Are you now , , , , never or living with a partner: In a typical week, how many times do you talk on the telephone with family, friends, or neighbors: 3 or more times per week How often do you get together with friends or relatives: 3 or more times per week How often do you attend sabianism or catholic services: never Do you belong to any clubs or organizations such as sabianism groups unions, fraternal or athletic groups, or school groups: no Total score: 1 Score interpretation: A score of less than or equal to 1 indicates the most socially isolated. Little interest or pleasure in doing things: not at all Feeling down, depressed, or hopeless: not at all Feel stressed/tense/nervous/anxious/difficulty sleeping: not at all Gender Identity: female Exam Narrative Exam Narrative: Nurses note and vital signs reviewed and patient is not hypoxic. General: The patient appears well and in no apparent distress. Patient is resting comfortably on cart. Skin: Warm, dry, no pallor noted. There is no rash noted. Head: Normocephalic, atraumatic Eye: Normal conjunctiva, no drainage Ears, Nose, Mouth, and Throat: oral mucosa is moist. Nares patent. Cardiovascular: Regular Rate and Rhythm Respiratory: Patient is in no distress, no accessory muscle use, lungs are clear to auscultation, no wheezing, rales or rhonchi Back: non-tender GI: Soft and nontender Musculoskeletal: The patient has no evidence of calf tenderness, no pitting edema, symmetrical pulses noted bilaterally Neurological: A&O, normal speech Psychiatric: Cooperative Constitutional Vital Signs, click to edit/add: Last Vital Signs Pulse 58 L 06/17/24 18:31 Resp 15 06/17/24 18:31 BP 185/93 H 06/17/24 18:31 Pulse Ox 93 L 06/17/24 18:31 O2 Del Method Room Air 06/17/24 17:32 Course Vital Signs Vital signs: Vital Signs Pulse Rate 60 06/17/24 17:32 Respiratory Rate 18 06/17/24 17:32 Blood Pressure 210/82 H 06/17/24 17:32 Pulse Oximetry 95 06/17/24 17:32 Oxygen Delivery Method Room Air 06/17/24 17:32 Pulse Rate 58 L 06/17/24 18:31 Respiratory Rate 15 06/17/24 18:31 Blood Pressure 185/93 H 06/17/24 18:31 Pulse Oximetry 93 L 06/17/24 18:31 Oxygen Delivery Method Room Air 06/17/24 17:32 Medical Decision Making MDM Narrative Medical decision making narrative: The patient presented with elevated blood pressure. Tests are ordered and the patient is signed out to Dr. Romeo at change of shift. Differential Diagnosis Differential Diagnosis: Hypertension, acute kidney injury, heart disease Lab Data Lab results reviewed: Yes I reviewed the patient's lab results Labs: Lab Results 06/17/24 Range/Units 18:00 WBC 8.4 (4.0-11.0) 10^3/uL RBC 5.04 (4.20-5.40) 10^6/uL Hgb 13.7 (12.0-16.0) g/dL Hct 42.9 (36.0-48.0) % MCV 85.1 (81.0-99.0) fL MCH 27.2 (26.7-34.0) pg MCHC 31.9 (29.9-35.2) g/dL RDW 14.6 (11.0-15.0) % Plt Count 236 (150-450) 10^3/uL MPV 10.5 (9.5-13.5) fL Neut % (Auto) 58.3 (43.0-75.0) % Lymph % (Auto) 33.4 (20.5-60.0) % Forrest % (Auto) 6.0 (1.7-12.0) % Eos % (Auto) 1.4 (0.9-7.0) % Baso % (Auto) 0.7 (0.2-2.0) % Neut # (Auto) 4.9 (1.4-6.5) 10^3/uL Lymph # (Auto) 2.8 (1.2-3.8) 10^3/uL Forrest # (Auto) 0.5 (0.3-0.8) 10^3/uL Eos # (Auto) 0.1 (0.0-0.7) 10^3/uL Baso # (Auto) 0.1 (0.0-0.1) 10^3/uL Abs Immat Gran (auto) 0.02 (0.00-0.03) 10^3/uL Imm/Tot Granulo (auto) 0.2 (0.0-0.5) % Sodium 135 L (136-145) mmol/L Potassium 3.0 L (3.5-5.1) mmol/L Chloride 99 (98-107) mmol/L Carbon Dioxide 27.6 (21.0-32.0) mmol/L Anion Gap 11.4 BUN 19.0 H (7.0-18.0) mg/dL Creatinine 1.19 H (0.55-1.02) mg/dL Est GFR ( Amer) 56 L (>=60) Est GFR (Non-Af Amer) 46 L (>=60) BUN/Creatinine Ratio 16.0 Glucose 154 H (74-106) mg/dL Calcium 9.1 (8.5-10.1) mg/dL Troponin I High Sens 10.7 (4.0-51.3) pg/mL ECG Data Attestation: I personally reviewed and interpreted this ECG as follows: (EKG on my interpretation shows sinus rhythm with a rate of 52) Critical Care Time Critical Care Time Critical Care Time: Yes Total Critical Care Time: 35 Attestation: Due to the high probability of sudden and clinically significant deterioration in the patient's condition he/she required the highest level of my preparedness to intervene urgently I provided critical care time including documentation time, medication orders and management, reevaluation, vital sign assessment, ordering and reviewing of lab tests, ordering and reviewing of x-ray studies, and admission orders. Aggregate critical care time is 35 minutes including only time during which I was engaged in work directly related to his/her care and did not include time spent treating other patients simultaneously. Discharge Plan Discharge Chief Complaint: Nausea/Vomiting/Diarrhea Clinical Impression: HTN (hypertension) Qualifiers: Hypertension type: unspecified Qualified Code(s): I10 - Essential (primary) hypertension Patient Disposition: Still a Patient Prescriptions / Home Meds: No Action metoprolol tartrate 100 mg tablet 100 mg PO Q12H metformin 500 mg tablet 500 mg PO BID lorazepam [Ativan] 0.5 mg tablet 0.25 mg PO Q8H PRN (Reason: panic attack(s)) Patient Comments: Takes 0.25 mg when she has panic attacks and can take additional 0.25 mg if needed aspirin 81 mg capsule 81 mg PO DAILY furosemide [Lasix] 20 mg tablet 20 mg PO DAILY clonidine HCl 0.1 mg tablet 0.1 mg PO Q12H Print Language: Cameroonian Referrals: Carlito Murillo MD [Primary Care Provider] - 1 week
[2024-06-17 18:13] LABS: Basophils Absolute Auto 0.1 10^3/uL (0.0-0.1); Basophils Percent Auto 0.7 % (0.2-2.0); Eosinophils Absolute Auto 0.1 10^3/uL (0.0-0.7); Eosinophils Percent Auto 1.4 % (0.9-7.0); Hematocrit 42.9 % (36.0-48.0); Hemoglobin 13.7 g/dL (12.0-16.0); Immature Granulocytes Abs Auto 0.02 10^3/uL (0.00-0.03); Immature Granulocytes Pct Auto 0.2 % (0.0-0.5); Lymphocytes Absolute Auto 2.8 10^3/uL (1.2-3.8); Lymphocytes Percent Auto 33.4 % (20.5-60.0); Mean Corpuscular HGB Conc 31.9 g/dL (29.9-35.2); Mean Corpuscular Hemoglobin 27.2 pg (26.7-34.0); Mean Corpuscular Volume 85.1 fL (81.0-99.0); Mean Platelet Volume 10.5 fL (9.5-13.5); Monocytes Absolute Auto 0.5 10^3/uL (0.3-0.8); Neutrophils Absolute Auto 4.9 10^3/uL (1.4-6.5); Neutrophils Percent Auto 58.3 % (43.0-75.0); Platelet Count 236 10^3/uL (150-450); Red Blood Count 5.04 10^6/uL (4.20-5.40); Red Cell Distribution Width 14.6 % (11.0-15.0); White Blood Count 8.4 10^3/uL (4.0-11.0)
[2024-06-17 18:21] LABS: Anion Gap 11.4; Calcium 9.1 mg/dL (8.5-10.1); Carbon Dioxide 27.6 mmol/L (21.0-32.0); Chloride 99 mmol/L (98-107); Estimated GFR (African America 56 (>=60); Estimated GFR (Non-African Ame 46 (>=60); Glucose 154 mg/dL (74-106); Sodium 135 mmol/L (136-145)
[2024-06-17 18:29] LABS: Troponin I High Sensitivity 10.7 pg/mL (4.0-51.3)
[2024-06-17] MEDS: HYDRALAZINE HCL 20 MG/ML VIAL 10 MG IVP (19:05)
[2024-06-17 19:11] LABS: Bilirubin Urine NEGATIVE (NEGATIVE); Blood Urine NEGATIVE (NEGATIVE); Clarity Urine CLEAR (CLEAR); Color Urine LT. YELLOW (YELLOW); Glucose Urine UA NEGATIVE (NEGATIVE); Ketones Urine NEGATIVE (NEGATIVE); Leukocyte Esterase Urine NEGATIVE (NEGATIVE); Nitrite Urine NEGATIVE (NEGATIVE); Protein Urine NEGATIVE (NEG/TRACE); Specific Gravity Urine <=1.005 (1.005-1.025); Urobilinogen Urine 0.2 EU/dL (0.2-1.0)
[2024-06-17 19:17] LABS: Bacteria Urine NONE SEEN #/HPF (NONE SEEN); Cast Seen? NONE SEEN #/LPF (NONE SEEN); Crystals Seen? None Seen #/HPF (None Seen); Mucus Urine NONE SEEN (NONE SEEN); RBC Urine 0-2 #/HPF (0-2); Squamous Epithelial Cell Urine FEW #/LPF (NONE/RARE)
[2024-06-17] MEDS: HYDRALAZINE HCL 20 MG/ML VIAL 5 MG IVP (19:49)
[2024-06-17] MEDS: LORAZEPAM 2 MG/ML VIAL 1 MG IV (19:50)
== END 2024-06-17 21:17 | disposition home or self-care (01) ==
PROVIDERS: Emergency Medicine; Emergency Provider Internal Medicine; PCP Family Medicine
DX: I16.0 Hypertensive urgency (principal); Z87.891 Personal history of nicotine dependence
CPT/HCPCS: 36415; 71045; 80048; 81001; 84484; 85025; 93005; 96374; 96375; 96376; 99285; J0360; J2060

== ENCOUNTER 2024-06-19 15:43 | Outpatient (OUT) | payer MEDICAID, SELFPAY ==
--- NOTE | 2024-06-19 15:46 | PE_ITS ---
The [address] [address] Patient Name: MILAN RASMUSSEN MRN: [id number] date: 1965 Sex: F Assigned Patient Location: PETCT Current Patient Location: PETCT Accession/Order Number: [id number] Exam Date: 06/19/2024 16:48 Report Date: 06/21/2024 19:30 At the request of: KENDRA MORAN Procedure: PET skull to mid thigh PET/CT: HISTORY: Pulmonary nodule. COMPARISON: CT chest 04/21/2024. CT abdomen 09/04/2019. TECHNIQUE: The patient was injected with 14.4 mCi of F-18 fluorodeoxyglucose (FDG), and an emission scan was performed from the base of the skull to the mid thigh. Noncontrast CT was performed for attenuation correction and anatomic localization. The blood glucose level was 108 mg/dl. The uptake time was 52 minutes. FINDINGS: HEAD AND NECK: There is a physiologic distribution of activity, with no hypermetabolic foci. CHEST: The SUVmax of the mediastinum = 3.7 using the patient's body weight as the normalization method. Hypermetabolic right middle lobe pulmonary nodule, image 107, SUV max 3.0. No hypermetabolic mediastinal or hilar adenopathy. ABDOMEN AND PELVIS: Hypermetabolic left adrenal mass, image 144, SUV max 6.3 measuring 2.6 x 2.5 cm. This appears stable compared to the CT from 09/04/2019. There appear to be some macroscopic fat in the region which has increased compared to the previous studies and this is suggestive of a myelolipoma. MUSCULOSKELETAL SYSTEM: There is a physiologic distribution of activity within the bone marrow, with no hypermetabolic foci. ADDITIONAL CT FINDINGS: There is moderate atherosclerotic coronary artery calcification and there is diffuse atherosclerotic calcination of the aorta, iliac and femoral arteries. There are trace bilateral pleural effusions. Liver is enlarged at 19.5 cm in length and there is moderate to severe diffuse fatty infiltration. The patient is status post cholecystectomy. There is a punctate nonobstructing stone in the upper pole of the right kidney and there is an additional small stone in lower pole of the right kidney. The left kidney demonstrates moderate atrophy and scarring. There is diverticulosis in the descending colon with no acute diverticulitis. The patient is status post hysterectomy. PET/PET skull to mid thigh IMPRESSION: 1. Right middle pulmonary nodule appears mildly hypermetabolic. This is suspicious for malignancy. Consider tissue sampling. 2. No evidence of metastatic disease. 3. Hypermetabolic left adrenal mass which appears stable from previous studies including 09/04/2019. This appears to be consistent with a myelolipoma. 4. Additional CT findings as described above. Electronically authenticated by: JOSE NARANJO Date: 06/21/2024 19:30
--- OUTSIDE RECORDS SUMMARY | 2024-06-19 15:53 | XMS_ITS | CCD ---
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 Role Phone Kendra Murillo Primary Care [...] HOY ., DR GARDNER Primary Care Unavailable AN[place], DR ADELIA Medrano Consulting Unavailable BIJAN MITCHELL Attending Unavailable Allergies Allergy Classification Reported Allergen(s) Allergy Type Date of Onset Reaction(s) Facility (1 source) No Known Medication Allergies; 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: [No Known Medication Allergies] Propensity to adverse reactions (disorder) [facility] Repository (1 source) ALPRAZolam; 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: [ALPRAZOLAM] Drug Allergy 4 [facility] Repository Medications Current Medications Medication Drug [...] Coronary arteriosclerosis; 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: [Atherosclerotic heart disease of [place] coronary artery without angina pectoris] Onset: 11-26-2022 [...] 11-26-2022 12-20-2019 Episodic Other aftercare (1 source) 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; 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: [PRISON CURRENT USE OF ASPIRIN] Onset: 11-26-2022 Episodic Other aftercare (1 source) 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 therapy; 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: [OTH PRISON CURRENT DRUG THERAPY] Onset: 11-26-2022 Episodic Other [...] Range Facility Office Visiton 05-26-2024 Follow-up visit [id number] Aby Madrigal 1965 F Date Provider Department Center 05/26/2024 [id number] VAZQUEZ [facility] Family History Problem Relation Age of Onset Lung cancer Mother No Known Problems Father Lung cancer Sister Family Status - Relation Status Age at Mother Father Sister Level of Service:08019 MT OFFICE/OUTPATIENT NEW MODERATE MDM 45 MINUTES Normal [facility] Outside Colonoscopyon 2022 Outside Colonoscopy [id number] .00CD:127 Normal [facility] Reminderson 11-27-2022 Reminders - From: Na Hayes LPN To: GSN - Clinical; Sent: 11/27/2022 12:46:10 EST Show up: 10/25/2032 07:00:00 EST Subject: colonoscopy recall Due Date/Time: 11/25/2032 07:00:00 EST Reminder/Recall Patient is due for screening colonoscopy 11/25/2032. Normal [facility] Lab Reportson 11-24-2022 Lab Reports [id number] .00CD:127 Normal [facility] Covid-19 PCR (CVDTB)on 10-24 SARS-CoV-2 (COVID-19) RNA BECK+probe Ql (Unsp spec) Not detected Normal NOT DETECTED [facility] Comment on above: Result Comment: This test is not yet approved or cleared by the [place] FDA. When there are no FDA-approved or cleared tests available, and other criteria are met, FDA can make tests available under an emergency access mechanism called an Emergency Use Authorization (EUA). The EUA for this test is supported by the [place] of Health and Human Service's (HHS's) declaration [...] SARS-CoV-2. Performed By: #### C [facility] #### [facility] [address] [place] [address] Dr. Rich Cutler Consent for Procedure/Surger yon 10-07-2022 Consent for Procedure/Surgery [id number] .[id number]:127 Normal [facility] : DR KENDRA MURILLO . 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 Tech Note: Incompetent SFJ and GSV. Patent varicose vein mid/med calf 2.9mm with 0s reflux. Patent varicose vein prox/post calf 3.8mm with 0s reflux. Patent varicose vein dist/med thigh 3.8mm with 2.0s reflux. CONCLUSION: 1. Mild right and bjkb-jb-hgggihbs left great saphenous vein venous insufficiency with dilatation 2. Left saphenous popliteal junction reflux 3. Mild left anterior accessory saphenous vein venous insufficiency without dilatation 4. Small bilateral incompetent varicose veins Dictated by: Adelia Lezama MD on 10/02/2022 at 13:36 Approved by: Adelia Lezama MD on 10/02/2022 at 13:52 Normal [facility] ECHOCARDIO M/2D COMPLETEon 1 11-30-2021 ECHOCARDIO M/2D COMPLETE Patient: ABY MADRIGAL Exam Date: 09/30/2022 : 1965 Gender:F Ordering : DR KENDRA MURILLO . Admission #: [id number] Family : Order #: [id number] CLICK HERE TO VIEW EXAM ECHOCARDIOGRAM REPORT [...] M.D. on 09/30/2022 at 18:37 Normal [facility] BNPon 09-24-2022 Natriuretic peptide B (Bld) [Mass/Vol] 501.0 pg/mL Normal <=900.0 [facility] Comment on above: Performed By: #### C VDTB #### [facility] [address] [place] [id number] [address] Rich Cutler CBC AUTO DIFFon 09-24-2022 BASO # 0.1 103/ul Normal 0.0-0.1 [facility] Comment on above: Performed By: #### C ALEXANDERTB #### [facility] [address] [place] [address] Dr. Rich Cutler Basophils/100 WBC (Bld) 0.8 % Normal 0.2-2.0 [facility] Comment on above: Performed By: #### C VDTBH #### [facility] [address] [place] [address] Dr. Rich Cutler EO # 0.3 103/ul Normal 0.0-0.7 [facility] Comment on above: Performed By: #### C VDTBH #### [facility] [address] [place] [address] Dr. Rich Cutler Eosinophils/100 WBC (Bld) 3.4 % Normal 0.9-7.0 [facility] Comment on above: Performed By: #### C VDTBH #### [facility] [address] [place] [address] Dr. Rich Cutler Erythrocyte distribution width (RBC) [Ratio] 13.3 % Normal 11.0-15.0 [facility] Comment on above: Performed By: #### C VDTBH #### [facility] [address] [place] [address] Dr. Rich Cutler Hematocrit (Bld) [Volume fraction] 40.5 % Normal 36.0-48.0 [facility] Comment on above: Performed By: #### C VDTBH #### [facility] [address] [place] [address] Dr. Rich Cutler Hemoglobin (Bld) [Mass/Vol] 13.1 g/dL Normal 12.0-16.0 [facility] Comment on above: Performed By: #### C VDTBH #### [facility] [address] [place] [address] Dr. Rich Cutler IG # 0.02 10e3/ul Normal 0.00-0.03 [facility] Comment on above: Performed By: #### C VDTBH #### [facility] [address] [place] [address] Dr. Rich Cutler IG % 0.3 % Normal 0.0-0.5 [facility] Comment on above: Performed By: #### C VDTBH #### [facility] [address] [address] [address] Rich Cutler LYMPH # 2.7 103/ul Normal 1.2-3.8 [facility] Comment on above: Performed By: #### C VDTBH #### [facility] [address] [place] [address] Dr. Rich Cutler Lymphocytes/100 WBC (Bld) 35.4 % Normal 20.5-60.0 [facility] Comment on above: Performed By: #### C VDTBH #### [facility] [address] [place] [address] Dr. Rich Cutler MANUAL DIFF REQ NO Normal [facility] Comment on above: Performed By: #### C VDTBH #### [facility] [address] [place] [address] Dr. Rich Cutler MCH (RBC) [Entitic mass] 28.2 pg Normal 26.7-34.0 [facility] Comment on above: Performed By: #### C VDTBH #### [facility] [address] [place] [address] Dr. Rich Cutler MCHC (RBC) [Mass/Vol] 32.3 g/dL Normal 29.9-35.2 [facility] Comment on above: Performed By: #### C VDTBH #### [facility] [address] [place] [address] Dr. Rich Cutler MCV (RBC) [Entitic vol] 87.3 fL Normal 81.0-99.0 [facility] Comment on above: Performed By: #### C VDTBH #### [facility] [address] [place] [address] Dr. Rich Cutler MONO # 0.5 103/ul Normal 0.3-0.8 [facility] Comment on above: Performed By: #### C VDTBH #### [facility] [address] [place] [address] Dr. Rich Cutler Monocytes/100 WBC (Bld) 6.5 % Normal 1.7-12.0 [facility] Comment on above: Performed By: #### C VDTBH #### [facility] [address] [address] [address] Rich Cutler NEUT # 4.1 103/ul Normal 1.4-6.5 [facility] Comment on above: Performed By: #### C VDTBH #### [facility] [address] [address] [address] Rich Cutler Neutrophils/100 WBC (Bld) 53.6 % Normal 43.0-75.0 [facility] Comment on above: Performed By: #### C VDTBH #### [facility] [address] [place] [address] Dr. Rich Cutler Platelet mean volume (Bld) [Entitic vol] 10.3 fL Normal 9.5-13.5 [facility] Comment on above: Performed By: #### C VDTBH #### [facility] [address] [place] [address] Dr. Rich Cutler PLT 283 103/ul Normal 150-450 [facility] Comment on above: Performed By: #### C VDTBH #### [facility] [address] [place] [address] Dr. Rich Cutler RBC 4.64 106/ul Normal 4.20-5.40 [facility] Comment on above: Performed By: #### C VDTBH #### [facility] [address] [place] [address] Dr. Rich Cutler WBC 7.6 103/ul Normal 4.0-11.0 [facility] Comment on above: Performed By: #### C VDTBH #### [facility] [address] [place] [address] Dr. Rich Cutler INSULINon 09-24-2022 Insulin 15.1 uIU/mL Normal 2.6-24.9 [facility] Comment on above: Performed By: #### C VDTBH #### [facility] [address] [place] [address] Dr. Rich Cutler PROF 14(COMP METB)on 022 Albumin [Mass/Vol] 3.5 g/dL Normal 3.4-5.0 [facility] Comment on above: Performed By: #### C VDTBH #### [facility] [address] [address] [address] Rich Cutler Albumin/Globulin [Mass ratio] 1.0 {ratio} Normal [facility] Comment on above: Performed By: #### C VDTBH #### [facility] [address] [address] [address] Rich Cutler ALP [Catalytic activity/Vol] 91 U/L Normal 46-116 [facility] Comment on above: Performed By: #### C VDTBH #### [facility] [address] [place] [address] Dr. Rich Cutler ALT [Catalytic activity/Vol] 47 U/L Normal 14-59 [facility] Comment on above: Performed By: #### C VDTBH #### [facility] [address] [place] [address] Dr. Rich Cutler Anion gap [Moles/Vol] 11.7 mmol/L Normal [facility] Comment on above: Performed By: #### C VDTBH #### [facility] [address] [place] [address] Dr. Rich Cutler AST [Catalytic activity/Vol] 24 U/L Normal 15-37 [facility] Comment on above: Performed By: #### C VDTBH #### [facility] [address] [place] [address] Dr. Rich Cutler Bilirubin [Mass/Vol] 0.2 mg/dL Normal 0.2-1.0 [facility] Comment on above: Performed By: #### C VDTBH #### [facility] [address] [address] [address] Rich Cutler Calcium [Mass/Vol] 8.9 mg/dL Normal 8.5-10.1 [facility] Comment on above: Performed By: #### C VDTBH #### [facility] [address] [address] [address] Rich Cutler Chloride [Moles/Vol] 105 mmol/L Normal 98-107 [facility] Comment on above: Performed By: #### C VDTBH #### [facility] [address] [address] [address] Rich Cutler CO2 [Moles/Vol] 28.1 mmol/L Normal 21.0-32.0 [facility] Comment on above: Performed By: #### C VDTBH #### [facility] [address] [address] [address] Rich Cutler Creatinine [Mass/Vol] 1.13 mg/dL Critically high 0.55-1.02 [facility] Comment on above: Performed By: #### C VDTBH #### [facility] [address] [address] [address] Rich Cutler EGFR-AF RUSSIAN 60 mL/min/1.73m2 Normal >=60 [facility] Comment on above: Performed By: #### C VDTBH #### [facility] [address] [address] [address] Rich Cutler EGFR-NON AF RUSSIAN 49 mL/min/1.73m2 Critically low >=60 [facility] Comment on above: Performed By: #### C VDTBH #### [facility] [address] [place] [address] Dr. Rich Cutler Globulin (S) [Mass/Vol] 3.5 g/dL Normal [facility] Comment on above: Performed By: #### C VDTBH #### [facility] [address] [address] [address] Rich Cutler Glucose [Mass/Vol] 119 mg/dL Critically high 74-106 [facility] Comment on above: Performed By: #### C VDTBH #### [facility] [address] [address] [address] Rich Cutler Potassium [Moles/Vol] 3.8 mmol/L Normal 3.5-5.1 [facility] Comment on above: Performed By: #### C VDTBH #### [facility] [address] [address] [address] Rich Cutler Protein [Mass/Vol] 7.0 g/dL Normal 6.4-8.2 [facility] Comment on above: Performed By: #### C VDTBH #### [facility] [address] [place] [address] Dr. Rich Cutler Sodium [Moles/Vol] 141 mmol/L Normal 136-145 [facility] Comment on above: Performed By: #### C VDTBH #### [facility] [address] [place] [address] Dr. Rich Cutler Urea nitrogen [Mass/Vol] 16.0 mg/dL Normal 7.0-18.0 [facility] Comment on above: Performed By: #### C VDTBH #### [facility] [address] [place] [address] Dr. Rich Cutler Urea nitrogen/Creatinine [Mass ratio] 14.2 mg/mg Normal [facility] Comment on above: Performed By: #### C VDTBH #### [facility] [address] [place] [address] Dr. Rich Cutler TROPONIN, HIGH SENSITIVITYon 09-24-2022 HSTROP 10.6 pg/mL Normal 4.0-51.3 [facility] Comment on above: Result Comment: CUT- OFF POINTS HAVE BEEN ESTABLISHED BASED ON THE FOURTH UNIVERSAL DEFINITIONS OF MYOCARDIAL INFARCTION. THE UPPER REFERENCE LIMIT (URL) OF TROPONIN, DEFINED THE 99TH PERCENTILE OF cTnI DISTRIBUTION IN A REFERENCE POPULATION, HAS BEEN CONFIRMED THE DECISION THRESHOLD FOR SD DIAGNOSIS. Performed By: #### C VDTBH #### [facility] [address] [place] [address] Dr. Rich Cutler XR CHEST 1 Von [...] UMM HUMPHRIES Date: 2022-09-24 04:08 Normal [facility] CBC AUTO DIFFon 09-23-2022 BASO # 0.1 103/ul Normal 0.0-0.1 [facility] Comment on above: Performed By: #### C BC #### [facility] [address] [address] [address] Rich Cutler Basophils/100 WBC (Bld) 0.8 % Normal 0.2-2.0 [facility] Comment on above: Performed By: #### C BC #### [facility] [address] [address] [address] Rich Cutler EO # 0.2 103/ul Normal 0.0-0.7 [facility] Comment on above: Performed By: #### C BC #### [facility] [address] [place] [address] Dr. Rich Cutler Eosinophils/100 WBC (Bld) 3.5 % Normal 0.9-7.0 [facility] Comment on above: Performed By: #### C BC #### [facility] [address] [place] [address] Dr. Rich Cutler Erythrocyte distribution width (RBC) [Ratio] 13.4 % Normal 11.0-15.0 [facility] Comment on above: Performed By: #### C BC #### [facility] [address] [place] [address] Dr. Rich Cutler Hematocrit (Bld) [Volume fraction] 42.3 % Normal 36.0-48.0 [facility] Comment on above: Performed By: #### C BC #### [facility] [address] [place] [address] Dr. Rich Cutler Hemoglobin (Bld) [Mass/Vol] 13.4 g/dL Normal 12.0-16.0 [facility] Comment on above: Performed By: #### C BC #### [facility] [address] [place] [address] Dr. Rich Cutler IG # 0.03 10e3/ul Normal 0.00-0.03 [facility] Comment on above: Performed By: #### C BC #### [facility] [address] [place] [address] Dr. Rich Cutler IG % 0.5 % Normal 0.0-0.5 [facility] Comment on above: Performed By: #### C BC #### [facility] [address] [place] [address] Dr. Rich Cutler LYMPH # 2.9 103/ul Normal 1.2-3.8 [facility] Comment on above: Performed By: #### C BC #### [facility] [address] [place] [address] Dr. Rich Cutler Lymphocytes/100 WBC (Bld) 44.0 % Normal 20.5-60.0 [facility] Comment on above: Performed By: #### C BC #### [facility] [address] [place] [address] Dr. Rich Cutler MANUAL DIFF REQ NO Normal [facility] Comment on above: Performed By: #### C BC #### [facility] [address] [place] [address] Dr. Rich Cutler MCH (RBC) [Entitic mass] 28.4 pg Normal 26.7-34.0 [facility] Comment on above: Performed By: #### C BC #### [facility] [address] [place] [address] Dr. Rich Cutler MCHC (RBC) [Mass/Vol] 31.7 g/dL Normal 29.9-35.2 [facility] Comment on above: Performed By: #### C BC #### [facility] [address] [place] [address] Dr. Rich Cutler MCV (RBC) [Entitic vol] 89.6 fL Normal 81.0-99.0 [facility] Comment on above: Performed By: #### C BC #### [facility] [address] [place] [address] Dr. Rich Cutler MONO # 0.4 103/ul Normal 0.3-0.8 [facility] Comment on above: Performed By: #### C BC #### [facility] [address] [place] [address] Dr. Rich Cutler Monocytes/100 WBC (Bld) 6.6 % Normal 1.7-12.0 [facility] Comment on above: Performed By: #### C BC #### [facility] [address] [place] [address] Dr. Rich Cutler NEUT # 2.9 103/ul Normal 1.4-6.5 [facility] Comment on above: Performed By: #### C BC #### [facility] [address] [place] [address] Dr. Rich Cutler Neutrophils/100 WBC (Bld) 44.6 % Normal 43.0-75.0 [facility] Comment on above: Performed By: #### C BC #### [facility] [address] [place] [address] Dr. Rich Cutler Platelet mean volume (Bld) [Entitic vol] 11.0 fL Normal 9.5-13.5 [facility] Comment on above: Performed By: #### C BC #### [facility] [address] [place] [address] Dr. Rich Cutler PLT 272 103/ul Normal 150-450 [facility] Comment on above: Performed By: #### C BC #### [facility] [address] [place] [address] Dr. Rich Cutler RBC 4.72 106/ul Normal 4.20-5.40 [facility] Comment on above: Performed By: #### C BC #### [facility] [address] [place] [address] Dr. Rich Cutler WBC 6.5 103/ul Normal 4.0-11.0 [facility] Comment on above: Performed By: #### C BC #### [facility] [address] [place] [address] Dr. Rich Cutler FREE THYROXINE INDEX T7on FTI 2.16 Normal 1.30-4.50 [facility] Comment on above: Performed By: #### L IPID, TSH, T7, CMP #### [facility] [address] [place] [address] Dr. Rich Cutler T3U 30.0 % Normal 30.0-39.0 [facility] Comment on above: Performed By: #### L IPID, TSH, T7, CMP #### [facility] [address] [address] [address] Rich Cutler T4 [Mass/Vol] 7.20 ug/dL Normal 4.80-13.90 [facility] Comment on above: Performed By: #### L IPID, TSH, T7, CMP #### [facility] [address] [address] [address] Rich Cutler GLYCOHEMOGLOBIN A1Con 2021 ADA RECOMMENDATION SEE BELOW Normal [facility] Comment on above: Result Comment: ADA RECOMMENDED LIMIT 4.0 - 6.0 ADA THERAPEUTIC TARGET < 7.0 ACTION SUGGESTED > 7.0 Performed By: #### A 1C #### [facility] [address] [place] [address] Dr. Rich Cutler Glucose [Mass/Vol] 128 mg/dL Normal [facility] Comment on above: Performed By: #### A 1C #### [facility] [address] [address] [address] Rich Cutler HbA1c (Bld) [Mass fraction] 6.1 % Normal 4.5-6.2 [facility] Comment on above: Performed By: #### A 1C #### [facility] [address] [place] [address] Dr. Rich Cutler IRONon 09-23-2022 Iron [Mass/Vol] 64.0 ug/dL Normal 50.0-170.0 [facility] Comment on above: Performed By: #### C VDTBH #### [facility] [address] [address] [address] Rich Cutler LIPID PROFILEon 09-23-2022 CHOL-HDL RATIO NORM SEE BELOW Normal [facility] Comment on above: Result Comment: 3.3 - 4.4 LOW RISK 4.4 - 7.1 AVERAGE RISK 7.1 - 11.0 MODERATE RISK >11.0 HIGH RISK Performed By: #### L IPID, TSH, T7, CMP #### [facility] [address] [address] [address] Rich Cutler Cholesterol [Mass/Vol] 237 mg/dL Critically high <=200 [facility] Comment on above: Performed By: #### L IPID, TSH, T7, CMP #### [facility] [address] [address] [address] Rich Cutler Cholesterol in HDL [Mass/Vol] 44 mg/dL Normal 40-60 [facility] Comment on above: Performed By: #### L IPID, TSH, T7, CMP #### [facility] [address] [address] [address] Rich Cutler Cholesterol in LDL [Mass/Vol] 172.2 mg/dL Normal [facility] Comment on above: Performed By: #### L IPID, TSH, T7, CMP #### [facility] [address] [place] [address] Dr. Rich Cutler Cholesterol.total/Ch olesterol in HDL [Mass ratio] 5.4 {ratio} Normal [facility] Comment on above: Performed By: #### L IPID, TSH, T7, CMP #### [facility] [address] [address] [address] Rich Cutler HDL NORMAL > or = 60 mg/dl - LO W CARDIOVASCULAR RISK <40 mg/dl - HIGH CARDIOVASCULAR RISK Normal [facility] Comment on above: Performed By: #### L IPID, TSH, T7, CMP #### [facility] [address] [address] [address] Rich Cutler LDL CALC NORMAL SEE BELOW Normal [facility] Comment on above: Result Comment: <100 mg/dl OPTIMAL 100 - 129 mg/dl NEAR OR ABOVE OPTIMAL 130 - 159 mg/dl BORDERLINE HIGH 160 - 189 mg/dl HIGH >190 mg/dl VERY HIGH Performed By: #### L IPID, TSH, T7, CMP #### [facility] [address] [address] [address] Rich Cutler Triglyceride [Mass/Vol] 104 mg/dL Normal <=150 [facility] Comment on above: Performed By: #### L IPID, TSH, T7, CMP #### [facility] [address] [place] [address] Dr. Rich Cutler VLDL CALC 20.8 mg/dL Normal [facility] Comment on above: Performed By: #### L IPID, TSH, T7, CMP #### [facility] [address] [place] [address] Dr. Rich Cutler PROF 14(COMP METB)on 022 Albumin [Mass/Vol] 3.5 g/dL Normal 3.4-5.0 [facility] Comment on above: Performed By: #### L IPID, TSH, T7, CMP #### [facility] [address] [place] [address] Dr. Rich Cutler Albumin/Globulin [Mass ratio] 0.9 {ratio} Normal [facility] Comment on above: Performed By: #### L IPID, TSH, T7, CMP #### [facility] [address] [place] [address] Dr. Rich Cutler ALP [Catalytic activity/Vol] 93 U/L Normal 46-116 [facility] Comment on above: Performed By: #### L IPID, TSH, T7, CMP #### [facility] [address] [place] [address] Dr. Rich Cutler ALT [Catalytic activity/Vol] 44 U/L Normal 14-59 [facility] Comment on above: Performed By: #### L IPID, TSH, T7, CMP #### [facility] [address] [place] [address] Dr. Rich Cutler Anion gap [Moles/Vol] 8.5 mmol/L Normal [facility] Comment on above: Performed By: #### L IPID, TSH, T7, CMP #### [facility] [address] [place] [address] Dr. Rich Cutler AST [Catalytic activity/Vol] 26 U/L Normal 15-37 [facility] Comment on above: Performed By: #### L IPID, TSH, T7, CMP #### [facility] [address] [place] [address] Dr. Rich Cutler Bilirubin [Mass/Vol] 0.3 mg/dL Normal 0.2-1.0 [facility] Comment on above: Performed By: #### L IPID, TSH, T7, CMP #### [facility] [address] [address] [address] Rich Cutler Calcium [Mass/Vol] 9.0 mg/dL Normal 8.5-10.1 [facility] Comment on above: Performed By: #### L IPID, TSH, T7, CMP #### [facility] [address] [place] [address] Dr. Rich Cutler Chloride [Moles/Vol] 106 mmol/L Normal 98-107 [facility] Comment on above: Performed By: #### L IPID, TSH, T7, CMP #### [facility] [address] [place] [address] Dr. Rich Cutler CO2 [Moles/Vol] 31.0 mmol/L Normal 21.0-32.0 [facility] Comment on above: Performed By: #### L IPID, TSH, T7, CMP #### [facility] [address] [place] [address] Dr. Rich Cutler Creatinine [Mass/Vol] 1.11 mg/dL Critically high 0.55-1.02 [facility] Comment on above: Performed By: #### L IPID, TSH, T7, CMP #### [facility] [address] [place] [address] Dr. Rich Cutler EGFR-AF RUSSIAN >60 Normal >=60 [facility] Comment on above: Performed By: #### L IPID, TSH, T7, CMP #### [facility] [address] [place] [address] Dr. Rich Cutler EGFR-NON AF RUSSIAN 50 mL/min/1.73m2 Critically low >=60 [facility] Comment on above: Performed By: #### L IPID, TSH, T7, CMP #### [facility] [address] [place] [address] Dr. Rich Cutler Globulin (S) [Mass/Vol] 3.7 g/dL Normal [facility] Comment on above: Performed By: #### L IPID, TSH, T7, CMP #### [facility] [address] [place] [address] Dr. Rich Cutler Glucose [Mass/Vol] 121 mg/dL Critically high 74-106 [facility] Comment on above: Performed By: #### L IPID, TSH, T7, CMP #### [facility] [address] [place] [address] Dr. Rich Cutler Potassium [Moles/Vol] 4.5 mmol/L Normal 3.5-5.1 [facility] Comment on above: Performed By: #### L IPID, TSH, T7, CMP #### [facility] [address] [place] [address] Dr. Rich Cutler Protein [Mass/Vol] 7.2 g/dL Normal 6.4-8.2 [facility] Comment on above: Performed By: #### L IPID, TSH, T7, CMP #### [facility] [address] [place] [address] Dr. Rich Cutler Sodium [Moles/Vol] 141 mmol/L Normal 136-145 [facility] Comment on above: Performed By: #### L IPID, TSH, T7, CMP #### [facility] [address] [place] [address] Dr. Rich Cutler Urea nitrogen [Mass/Vol] 16.0 mg/dL Normal 7.0-18.0 [facility] Comment on above: Performed By: #### L IPID, TSH, T7, CMP #### [facility] [address] [place] [address] Dr. Rich Cutler Urea nitrogen/Creatinine [Mass ratio] 14.4 mg/mg Normal [facility] Comment on above: Performed By: #### L IPID, TSH, T7, CMP #### [facility] [address] [place] [address] Dr. Rich Cutler TSHon 09-23-2022 TSH 3.915 uIU/mL Critically high 0.358-3.740 [facility] Comment on above: Performed By: #### L IPID, TSH, T7, CMP #### [facility] [address] [address] [address] Rich Cutler Physician Referralon 022 Physician Referral [phone] [id number] Normal [facility] Lipid Panelon 10-07-2021 Cholesterol [Mass/Vol] 205 mg/dL High 140-200 [facility] Comment on above: Result Comment: Chol less than 200 mg/dl low risk Chol 201-239 mg/dl borderline risk Chol 240 mg/dl and greater high risk Performed By: #### L IPID, [id number], TSH3 wRFLX #### [facility] [address] [place] [address] [place] Cholesterol in HDL [Mass/Vol] 25 mg/dL Low 35-85 [facility] Comment on above: Result Comment: HDL CHOL ATP-III CLASSIFICATION Cardiovascular Risk HDL > or equal to 60 mg/dL LOW HDL < 40 mg/dL HIGH Performed By: #### L IPID, [id number], TSH3 wRFLX #### [facility] [address] [place] [address] [place] Cholesterol.total/Ch olesterol in HDL [Mass ratio] 8.2 {ratio} Normal <5.0 [facility] Comment on above: Performed By: #### L IPID, [id number], TSH3 wRFLX #### [facility] [address] [id number] [place] LDL Cholesterol,Calculat ed 160 mg/dL High 0-100 [facility] Comment on above: Result Comment: LDL ATP III CLASSIFICATION LDL less than 100 mg/dL Optimal LDL 100-129 mg/dL Near or above optimal LDL 130-159 mg/dL Borderline high LDL 160-189 mg/dL High LDL greater than 189 mg/dL Very high Performed By: #### L IPID, [id number], TSH3 wRFLX #### [facility] [address] [place] [address] [place] Triglyceride w/Reflex 100 mg/dL Normal 35-149 [facility] Comment on above: Result Comment: TRIG ATP III CLASSIFICATION TRIG less than 150 mg/dL Normal TRIG 150-199 mg/dL Borderline high TRIG 200-500 mg/dL High TRIG greater than 500 mg/dL Very high Standard traceable to the Center for Disease Conrtrol and Prevention (CDC) test method. Performed By: #### L IPID, [id number], TSH3 wRFLX #### [address] VLDL CHOLESTEROL 20 mg/dL Normal [facility] Comment on above: Performed By: #### L IPID, [id number], TSH3 wRFLX #### [address] Thyroid Stim Hormone w/Rflxo n 10-07-2021 Thyroid Stim Hormone w/Rflx 3.27 u[iU]/mL Normal 0.45-5.33 [facility] Comment on above: Performed By: #### L IPID, [id number], TSH3 wRFLX #### [address] Vitamin D 25 Hydroxy Totalon 10-07-2021 Vitamin D 25 Hydroxy Total 26.5 ng/mL Low 30-100 [facility] Comment on above: Result Comment: JACKELINE MIN D STATUS 25(OH)VITAMIN D RANGE (ng/mL) Deficient <20 Insufficient 20 to <30 Sufficient 30 to 100 Reference: Lanny MF,Gino NC, Dyan VALENZUELA, et al. Evaluation,treatment, and prevention of vitamin D deficiency; an Endocrine Society clinical practice guideline. JCEM. 2010; 96(7):1911-30. PERFORMED BY: [place] [address] PATHOLOGIST CHASSIS INSPECTOR SILVESTRE SCHULER M.D. Performed By: #### L IPID, [id number], TSH3 wRFLX #### [address] Vital Signs Date Time Vital Sign Value Performing Clinician Deidre gagnon 10-06-2022 15:36-0500 Blood Pressure Location Umm JACQUESMami [facility] 10-06-2022 15:36-0500 Diastolic blood pressure 86 mm[Hg] Umm MARTÍNEZ [facility] 10-06-2022 15:36-0500 Heart rate 72 /min Umm DIPESH [facility] 10-06-2022 15:36-0500 Respiratory rate 16 /min Umm JACQUESMami [facility] 10-06-2022 15:36-0500 Systolic blood pressure 126 mm[Hg] Umm DIPESH [facility] Encounters Encounter Date Encounter Type Care Provider Facility Start: 05-26-2024 End: 05-26-2024 ambulatory [facility] Start: 11-26-2022 Encounter for preprocedural laboratory examination DR UMM MARTÍNEZ . [facility] Start: 11-25-2022 End: 11-26-2022 ambulatory Umm MARTÍNEZ Facility:[id number] Start: 11-20-2022 End: 11-21-[address] UMM MARTÍNEZ . Facility:[facility] Start: 11-20-2022 End: 11-21-2022 Encounter for preprocedural laboratory examination DR UMM MARTÍNEZ . Facility:[facility] Start: 10-06-2022 End: 10-07-2022 ambulatory Umm MARTÍNEZ Facility:[facility] Start: 10-06-2022 End: 10-06-2022 Patient encounter procedure Umm MARTÍNEZ [facility] Start: 10-02-2022 End: 10-03-[address] KENDRA MURILLO . Facility:[facility] Start: 09-30-2022 End: 10-01-[address] KENDRA MURILLO . Facility:[facility] Start: 09-28-2022 Encounter for genera l adult medical examination without abnormal findings DR KENDRA MURILLO . [facility] Start: 09-24-2022 End: 09-24-[address] SYBIL [...] mRNA BNT-162b2 vax Umm NILL [facility] 03-11-2021 SARS-CoV-2 (COVID-19 ) mRNA BNT-162b2 vax Umm NILL [facility] Payers Date Payer Category Payer Medicaid [id number] 1965 Unknown [id number] 2.16.8 [id number] 1965 Unknown [id number] 2.16.8 [id number] 1965 Unknown [id number] 2.16.84 [id number] 1965 Unknown [id number] 2.16.84 [id number] 1965 Unknown [id number] 2.16.84 [id number] 1965 Unknown [id number] 2.16.84 [id number] 1965 Unknown [id number] 2.16.84 [id number] 1965 Unknown [id number] 2.16.84 [id number] 1965 Unknown [id number] 2.16.84 [id number] 1960 Self-pay [id number] 1960 Unknown [id number] Social History Date Type Detail Facility Start: 10-06-2022 Tobacco smoking status Ex-smoker (fi nding) [facility] Tobacco smoking status Never [facility] Sex Assigned At Female [facility] Functional Status Date Assessment Result Facility 10-06-2022 Functional Status N/A [facility] Progress note 05-26-2024 Note Date & Type Note Facility 05-26-2024 Note [facility] Note Reason for cardiology [...] PSYCH: appropriate mood, (more content not included)... [facility] Clinical Note 11-25-2022 Note Date & [...] 10 years. CC: Kendra Murillo M.D. [facility] Note 10-11-2022 Note Date & Type [...] data available for this section [facility] Discharge instructions Note Date & Type Note Facility Hospital Discharge instructions No data available for this section [facility] Progress note Note Date & Type Note Facility Progress note No data available for this section [facility] Summary Purpose Family History No Family History [...] AUTHOR AUTHOR'S ORGANIZ ATION 12/16/2022 [facility] DATE CREATED AUTHOR AUTHOR'S ORGANIZ ATION 03/26/2023 [facility] DATE CREATED AUTHOR AUTHOR'S ORGANIZ ATION 05/27/2024 [facility] Patient Care team informatio n (unrecognized section and content) Personnel Name: Kendra Murillo MD Address: Address: [address] [place] [address] Personnel Name: Kendra Murillo MD Address: Address: [address] [place] [address] FOR RECORDS PERTAINING TO PATIENTS WHO ARE [...] BE BASED ON THE PRIMARY CLINICAL RECORDS. [facility]. provides no warranty or guarantee of the accuracy or completeness of information in this document.
== END 2024-06-19 15:44 | disposition home or self-care (01) ==
LOC: PETCT 15:43
PROVIDERS: PCP Family Medicine; Visit Provider Family Medicine
DX: C34.90 Malignant neoplasm of unspecified part of unspecified bronchus or lung (principal)
CPT/HCPCS: 78815; A9552

== ENCOUNTER 2024-06-27 14:10 | Outpatient (OUT) | payer MEDICAID, SELFPAY ==
[2024-06-27 14:45] LABS: Erythrocyte Sedimentation Rate 91 mm/hr (<=30)
[2024-06-28 06:10] LABS: Rheumatoid Factor (RF) <10.0 IU/mL (<14.0)
[2024-06-28 12:12] LABS: Anti-CCP Ab, IgG/IgA 3 units (0-19)
[2024-06-28 14:10] LABS: Angiotensin-Converting Enzyme 21 U/L (14-82)
[2024-06-28 15:08] LABS: ANA Direct Negative (Negative); Antiscleroderma-70 Antibodies <0.2 AI (0.0-0.9)
[2024-06-28 16:10] LABS: Histoplasma Gal'mannan Ag Ur Negative (<0.2 ng/mL)
[2024-06-28 20:09] LABS: Anti-GBM Antibodies <0.2 units (0.0-0.9); Anti-MPO Antibodies <0.2 units (0.0-0.9); Anti-PR3 Antibodies <0.2 units (0.0-0.9); Cytoplasmic (C-ANCA) <1:20 titer (Neg:<1:20); Perinuclear (P-ANCA) <1:20 titer (Neg:<1:20)
[2024-06-29 14:09] LABS: QuantiFERON-TB Gold Plus Negative (Negative)
== END 2024-06-27 14:11 | disposition home or self-care (01) ==
LOC: LAB 14:11
PROVIDERS: PCP Family Medicine; Visit Provider Internal Medicine
DX: R91.1 Solitary pulmonary nodule (principal)
CPT/HCPCS: 36415; 82164; 83516; 85652; 86037; 86038; 86200; 86235; 86431; 86480; 86606; 86612; 87385

== ENCOUNTER 2024-06-29 02:05 | Observation (INO) | payer MEDICAID, SELFPAY ==
[2024-06-29] VITALS (36 sets, daily range): BP systolic 117–236; BP diastolic 65–94; PULSE 68–102; TEMP 36.4–36.8; O2SAT 92–98; BMI 38.1; BMI 37.8
--- NOTE | 2024-06-29 02:13 | ECG_ITS ---
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
--- NOTE | 2024-06-29 02:24 | XR_ITS ---
The [address] [address] Patient Name: MILAN RASMUSSEN MRN: [id number] date: 1965 Sex: F Assigned Patient Location: ER Current Patient Location: ER Accession/Order Number: [id number] Exam Date: 06/29/2024 02:35 Report Date: 06/29/2024 04:03 At the request of: SYBIL MARKER Procedure: XR chest 1V EXAM: XR chest 1V HISTORY: Chest pain. COMPARISON: Portable chest radiograph dated 06/17/2024. TECHNIQUE: AP erect portable chest radiograph performed. FINDINGS: The trachea is midline. The cardiomediastinal silhouette and hilar shadows are within normal limits. There is no consolidation, pleural effusion or pulmonary vascular congestion. There is no pneumothorax or osseous abnormality. XR/XR chest 1V IMPRESSION: Unremarkable AP erect portable view of the chest. Electronically authenticated by: EMMA EMERSON Date: 06/29/2024 04:03
--- OUTSIDE RECORDS SUMMARY | 2024-06-29 02:26 | XMS_ITS | CCD ---
Author Organization [facility] Care Team Providers Care Yarn Man Name Role Phone Kendra Murillo Primary Care [...] HOY ., DR GARDNER Primary Care Unavailable VIMAL, DR ADELIA Medrano Consulting Unavailable JAMEYUKAGOMEZ RODRIGUEZ Attending Unavailable BIJAN MITCHELL Attending Unavailable Allergies Allergy Classification Reported Allergen(s) Allergy Type Date of Onset Reaction(s) Facility (1 source) No Known Medication Allergies; 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: [No Known Medication Allergies] Propensity to adverse reactions (disorder) [facility] Repository (1 source) ALPRAZolam; 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: [ALPRAZOLAM] Drug Allergy 4 [facility] Repository (1 source) amLODIPine; 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: [AMLODIPINE] Drug Allergy 4 [facility] Repository (1 source) Lisinopril; 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: [LISINOPRIL] Drug Allergy 4 [facility] Repository Medications Current Medications Medication [...] (7 sources) Anxiety; 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: [Panic disorder] Onset: 2 08-02-2019 Chronic Complication of device; implant or graft (2 sources) Retained ureteric stent 08-29-2019 Episodic Coronary atherosclerosis and other heart disease (3 sources) Coronary arteriosclerosis; 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: [Atherosclerotic heart disease of [place] coronary artery without angina pectoris] Onset: 3 09-30-2022 Chronic Disorders of lipid metabolism (3 sources) Hyperlipidemia, unspecified; 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: [HYPERLIPIDEMIA UNSPECIFIED] Onset: 3 Chronic Essential hypertension (5 sources) Hypertensive disorder; 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: [Essential (primary) hypertension] Onset: 3 08-02-2019 Chronic Genitourinary symptoms and ill-defined conditions [...] dyspnea; 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: [Other forms of dyspnea] Onset: 4 Episodic Other nervous system disorders (2 sources) Paresthesia 08-02-2019 Episodic Other nutritional; endocrine; and metabolic disorders (2 sources) Body mass index 30+ - obesity 07-02-2021 Chronic Other screening for suspected conditions (not mental disorders or infectious disease) (6 sources) Encounter for screening for malignant neoplasm of colon; 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: [Abnormal electrocardiogram [ECG] [EKG]] Onset: 3 Episodic Other skin disorders (2 sources) Inflamed seborrheic keratosis 10-31-2020 Episodic Residual codes; unclassified (2 sources) Obstructive sleep apnea syndrome 10-30-2020 Chronic Residual codes; unclassified (1 source) Obstructive sleep apnea (adult) (pediatric); 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: [OBSTRUCTIVE SLEEP APNEA] Onset: 3 Chronic Substance-related disorders (2 sources) Nicotine dependence 12-20-2019 Chronic Transient cerebral ischemia (2 sources) Transient cerebral ischemia 10-30-2020 Chronic Unclassified (2 sources) Injury of left ureter 12-20-2019 Unclassified (1 source) CONTACT W/AND (SUSP) EXPOS COVID-19; 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: [CONTACT W/AND (SUSP) EXPOS COVID-19] Onset: 3 Past or Other Problems Problem Classification Problem Date Documented Da te Episodic/Chronic Calculus of urinary tract (5 sources) History of calculus of kidney; 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: [Kidney stone] Onset: 11-26-2022 12-20-2019 Episodic Other aftercare (1 source) halfway (current) use of aspirin; 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: [SENIOR LIVING CURRENT USE OF ASPIRIN] Onset: 11-26-2022 Episodic Other aftercare (1 source) 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; 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: [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] Onset: 11-26-2022 Episodic Other circulatory disease (1 source) Personal history of transient ischemic attack (TIA), and cerebral infarction without residual deficits; 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: [PERS HX TIA AND CI NO RESID DEFICIT] Onset: 11-26-2022 Episodic Other connective tissue disease (3 sources) Other specified soft tissue disorders; 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: [OTHER SPEC SOFT TISSUE DISORDERS] Onset: 09-24-2022 Episodic Other skin disorders (1 source) Other [...] Value Interpretation Reference Range Facility Office Visiton 06-21-2024 Follow-up visit [id number] Aby Madrigal Cristina 1965 [facility] Provider Department Center 06/21/2024 GOMEZ KENDALL RIAZ [place] Family History Problem Relation Age of Onset Lung cancer Mother No Known Problems Father Lung cancer Sister Family Status - Relation Status Age at Mother Father Sister Level of Service:10424 ME OFFICE/OUTPATIENT ESTABLISHED MOD MDM 30 MIN Normal [facility] Office Visiton 05-26-2024 Follow-up visit [id number] Aby Madrigal Cristina 1965 Provider Department Center 05/26/2024 [id number] GRADY RIAZ [place] Family History Problem Relation Age of Onset Lung cancer Mother No Known Problems Father Lung cancer Sister Family Status - Relation Status Age at Mother Father Sister Level of Service:53461 ME OFFICE/OUTPATIENT NEW MODERATE MDM 45 MINUTES Normal [facility] Outside Colonoscopyon 2022 Outside Colonoscopy [id number] .[id number]:127 Normal [facility] Reminderson 11-27-2022 Reminders - From: Na Hayes LPN To: N - Clinical; Sent: 11/27/2022 12:46:10 EST Show up: 10/25/2032 07:00:00 EST Subject: colonoscopy recall Due Date/Time: 11/25/2032 07:00:00 EST Reminder/Recall Patient is due for screening colonoscopy 11/25/2032. Normal [facility] Lab Reportson 11-24-2022 Lab Reports [id number] .00CD:127 Normal [facility]-24 SARS-CoV-2 (COVID-19) RNA BECK+probe Ql (Unsp spec) Not detected Normal NOT DETECTED [facility] Comment on above: Result Comment: This test is not yet approved or cleared by the [place] FDA. When there are no FDA-approved or cleared tests available, and other criteria are met, FDA can make tests available under an emergency access mechanism called an Emergency Use Authorization (EUA). The EUA for this test is supported by the [employer] Analyst of Health and Human Service's (HHS's) declaration [...] consistent with SARS-CoV-2. Performed By: #### [facility] #### [facility] [address] [place] [address] Dr. Rich Cutler Consent for Procedure/Surger yon 10-07-2022 Consent for Procedure/Surgery [id number] .[id number]:127 Normal [facility] Ambulatory Visit Summaryon 1 12-06-2021 Ambulatory Visit Summary NELAABY CRESPO :1965 Visit Date:10/06/2022 Ambulatory Visit Instructions Your [...] for. Allergic conjunctivitis Anticoagulated Kidney stones Normal [facility] VC VENOUS REFLUX NINO LMTon 1 12-02-2021 VC VENOUS REFLUX NINO LMT Patient: ABY MADRIGALRaul Exam Date: 10/02/2022 : 1965 Gender:F Ordering : DR KENDRA MURILLO . Admission #: [id number] Family : Order #: [id number] CLICK HERE TO VIEW EXAM RADIOLOGY REPORT [...] chronic thrombus visualized Compressibility: Normal Flow: Normal Phthalic Acid Purifier: Dist/med calf 3.3mm with 0s reflux. Tech Note: Incompetent SFJ and GSV. Patent varicose vein mid/med calf 2.9mm with 0s reflux. Patent varicose vein prox/post calf 3.8mm with 0s reflux. Patent varicose vein dist/med thigh 3.8mm with 2.0s reflux. CONCLUSION: 1. Mild right and rynl-wd-[id number] left great saphenous vein venous insufficiency with dilatation 2. Left saphenous popliteal junction reflux 3. Mild left anterior accessory saphenous vein venous insufficiency without dilatation 4. Small bilateral incompetent varicose veins Dictated by: Adelia Lezama MD on 10/02/2022 at 13:36 Approved by: Adelia Lezama MD on 10/02/2022 at 13:52 Normal [facility] ECHOCARDIO M/2D COMPLETEon 1 11-30-2021 ECHOCARDIO M/2D COMPLETE Patient: ABY MADRIGAL Exam Date: 09/30/2022 : 1965 Gender:F Ordering : DR KENDRA MURILLO . Admission #: [id number] Family : Order #: [id number] CLICK HERE TO VIEW EXAM ECHOCARDIOGRAM REPORT [...] ml, 15.88 ml, 59.64 ml Dictated by: Gomez Spence M.D. on 09/30/2022 at 18:28 Approved by: Gomez Spence M.D. on 09/30/2022 at 18:37 Normal [facility] BNPon 09-24-2022 Natriuretic peptide B (Bld) [Mass/Vol] 501.0 pg/mL Normal <=900.0 [facility] Comment on above: Performed By: #### C VDTBH #### [facility] [address] [place] [address] Dr. Rich Cutler CBC AUTO DIFFon 09-24-2022 BASO # 0.1 103/ul Normal 0.0-0.1 [facility] Comment on above: Performed By: #### C VDTBH #### [facility] [address] [place] [address] Dr. Rich Cutler Basophils/100 WBC (Bld) 0.8 % Normal 0.2-2.0 [facility] Comment on above: Performed By: #### C VDTBH #### [facility] [address] [place] [address] Dr. Rich Cutler EO # 0.3 103/ul Normal 0.0-0.7 [facility] Comment on above: Performed By: #### C VDTBH #### [facility] [address] [place] [address] Dr. Rich Cutler Eosinophils/100 WBC (Bld) 3.4 % Normal 0.9-7.0 [facility] Comment on above: Performed By: #### C VDTBH #### [facility] [address] [place] [address] Dr. Rich Cutler Erythrocyte distribution width (RBC) [Ratio] 13.3 % Normal 11.0-15.0 [facility] Comment on above: Performed By: #### C VDTBH #### [facility] [address] [place] [address] Dr. Rich Cutler Hematocrit (Bld) [Volume fraction] 40.5 % Normal 36.0-48.0 [facility] Comment on above: Performed By: #### C VDTBH #### [facility] [address] [place] [address] Dr. Rich Cutler Hemoglobin (Bld) [Mass/Vol] 13.1 g/dL Normal 12.0-16.0 [facility] Comment on above: Performed By: #### C VDTBH #### [facility] [address] [place] [address] Dr. Rich Cutler IG # 0.02 10e3/ul Normal 0.00-0.03 [facility] Comment on above: Performed By: #### C VDTBH #### [facility] [address] [place] [address] Dr. Rich Cutler IG % 0.3 % Normal 0.0-0.5 [facility] Comment on above: Performed By: #### C VDTBH #### [facility] [address] [place] [address] Dr. Rich Cutler LYMPH # 2.7 103/ul Normal 1.2-3.8 [facility] Comment on above: Performed By: #### C VDTBH #### [facility] [address] [place] [address] Dr. Rich Cutler Lymphocytes/100 WBC (Bld) 35.4 % Normal 20.5-60.0 [facility] Comment on above: Performed By: #### C VDTBH #### [facility] [address] [place] [address] Dr. Rich Cutler MANUAL DIFF REQ NO Normal [facility] Comment on above: Performed By: #### C VDTBH #### [facility] [address] [place] [address] Dr. Rich Cutler MCH (RBC) [Entitic mass] 28.2 pg Normal 26.7-34.0 [facility] Comment on above: Performed By: #### C VDTBH #### [facility] [address] [place] [address] Dr. Rich Cutler MCHC (RBC) [Mass/Vol] 32.3 g/dL Normal 29.9-35.2 [facility] Comment on above: Performed By: #### C VDTBH #### [facility] [address] [place] [address] Dr. Rich Cutler MCV (RBC) [Entitic vol] 87.3 fL Normal 81.0-99.0 [facility] Comment on above: Performed By: #### C VDTBH #### [facility] [address] [place] [address] Dr. Rich Cutler MONO # 0.5 103/ul Normal 0.3-0.8 [facility] Comment on above: Performed By: #### C VDTBH #### [facility] [address] [place] [address] Dr. Rich Cutler Monocytes/100 WBC (Bld) 6.5 % Normal 1.7-12.0 [facility] Comment on above: Performed By: #### C VDTBH #### [facility] [address] [place] [address] Dr. Rich Cutler NEUT # 4.1 103/ul Normal 1.4-6.5 [facility] Comment on above: Performed By: #### C VDTB #### [facility] [address] [place] [address] Dr. Rich Cutler Neutrophils/100 WBC (Bld) 53.6 % Normal 43.0-75.0 [facility] Comment on above: Performed By: #### C VDTBH #### [facility] [address] [place] [address] Dr. Rich Cutler Platelet mean volume (Bld) [Entitic vol] 10.3 fL Normal 9.5-13.5 [facility] Comment on above: Performed By: #### C VDTBH #### [facility] [address] [place] [address] Dr. Rich Cutler PLT 283 103/ul Normal 150-450 [facility] Comment on above: Performed By: #### C VDTBH #### [facility] [address] [place] [address] Dr. Rich Cutler RBC 4.64 106/ul Normal 4.20-5.40 [facility] Comment on above: Performed By: #### C VDTBH #### [facility] [address] [place] [address] Dr. Rich Cutler WBC 7.6 103/ul Normal 4.0-11.0 [facility] Comment on above: Performed By: #### C VDTBH #### [facility] [address] [place] [address] Dr. Rich Cutler INSULINon 09-24-2022 Insulin 15.1 uIU/mL Normal 2.6-24.9 [facility] Comment on above: Performed By: #### C VDTBH #### [facility] [address] [place] [address] Dr. Rich Cutler PROF 14(COMP METB)on 022 Albumin [Mass/Vol] 3.5 g/dL Normal 3.4-5.0 [facility] Comment on above: Performed By: #### C VDTBH #### [facility] [address] [place] [address] Dr. Rich Cutler Albumin/Globulin [Mass ratio] 1.0 {ratio} Normal [facility] Comment on above: Performed By: #### C VDTBH #### [facility] [address] [place] [address] Dr. Rich Cutelr ALP [Catalytic activity/Vol] 91 U/L Normal 46-116 [facility] Comment on above: Performed By: #### C VDTBH #### [facility] [address] [place] [address] Dr. Rich Cutler ALT [Catalytic activity/Vol] 47 U/L Normal 14-59 [facility] Comment on above: Performed By: #### C VDTBH #### [facility] [address] [place] [address] Dr. Rich Cutler Anion gap [Moles/Vol] 11.7 mmol/L Normal [facility] Comment on above: Performed By: #### C VDTBH #### [facility] [address] [place] [address] Dr. Rich Cutler AST [Catalytic activity/Vol] 24 U/L Normal 15-37 [facility] Comment on above: Performed By: #### C VDTBH #### [facility] [address] [address] [address] Rich Cutler Bilirubin [Mass/Vol] 0.2 mg/dL Normal 0.2-1.0 [facility] Comment on above: Performed By: #### C VDTBH #### [facility] [address] [address] [address] Rich Cutler Calcium [Mass/Vol] 8.9 mg/dL Normal 8.5-10.1 [facility] Comment on above: Performed By: #### C VDTBH #### [facility] [address] [address] [address] Rich Cutler Chloride [Moles/Vol] 105 mmol/L Normal 98-107 [facility] Comment on above: Performed By: #### C VDTBH #### [facility] [address] [address] [address] Rich Cutler CO2 [Moles/Vol] 28.1 mmol/L Normal 21.0-32.0 [facility] Comment on above: Performed By: #### C VDTBH #### [facility] [address] [address] [address] Rich Cutler Creatinine [Mass/Vol] 1.13 mg/dL Critically high 0.55-1.02 [facility] Comment on above: Performed By: #### C VDTBH #### [facility] [address] [address] [address] Rich Cutler EGFR-AF [place] 60 mL/min/1.73m2 Normal >=60 [facility] Comment on above: Performed By: #### C VDTBH #### [facility] [address] [address] [address] Rich Cutler EGFR-NON AF [place] 49 mL/min/1.73m2 Critically low >=60 [facility] Comment on above: Performed By: #### C VDTBH #### [facility] [address] [address] [address] Rich Cutler Globulin (S) [Mass/Vol] 3.5 g/dL Normal [facility] Comment on above: Performed By: #### C VDTBH #### [facility] [address] [address] [address] Rich Cutler Glucose [Mass/Vol] 119 mg/dL Critically high 74-106 [facility] Comment on above: Performed By: #### C VDTBH #### [facility] [address] [address] [address] Rich Cutler Potassium [Moles/Vol] 3.8 mmol/L Normal 3.5-5.1 [facility] Comment on above: Performed By: #### C VDTBH #### [facility] [address] [address] [address] Rich Cutler Protein [Mass/Vol] 7.0 g/dL Normal 6.4-8.2 [facility] Comment on above: Performed By: #### C VDTBH #### [facility] [address] [place] [address] Dr. Rich Cutler Sodium [Moles/Vol] 141 mmol/L Normal 136-145 [facility] Comment on above: Performed By: #### C VDTBH #### [facility] [address] [address] [address] Rich Cutler Urea nitrogen [Mass/Vol] 16.0 mg/dL Normal 7.0-18.0 [facility] Comment on above: Performed By: #### C VDTBH #### [facility] [address] [place] [address] Dr. Rich Cutler Urea nitrogen/Creatinine [Mass ratio] 14.2 mg/mg Normal [facility] Comment on above: Performed By: #### C VDTBH #### [facility] [address] [place] [address] Dr. Rich Cutler TROPONIN, HIGH SENSITIVITYon 09-24-2022 HSTROP 10.6 pg/mL Normal 4.0-51.3 [facility] Comment on above: Result Comment: CUT- OFF POINTS HAVE BEEN ESTABLISHED BASED ON THE FOURTH UNIVERSAL DEFINITIONS OF MYOCARDIAL INFARCTION. THE UPPER REFERENCE LIMIT (URL) OF TROPONIN, DEFINED THE 99TH PERCENTILE OF cTnI DISTRIBUTION IN A REFERENCE POPULATION, HAS BEEN CONFIRMED THE DECISION THRESHOLD FOR MT DIAGNOSIS. Performed By: #### C VDTB #### [facility] [address] [place] [address] Dr. Rich Cutler XR CHEST 1 Von [...] UMM HUMPHRIES Date: 2022-09-24 04:08 Normal [facility] CBC AUTO DIFFon 09-23-2022 BASO # 0.1 103/ul Normal 0.0-0.1 [facility] Comment on above: Performed By: #### C BC #### [facility] [address] [place] [address] Dr. Rich Cutler Basophils/100 WBC (Bld) 0.8 % Normal 0.2-2.0 [facility] Comment on above: Performed By: #### C BC #### [facility] [address] [place] [address] Dr. Rich Cutler EO # 0.2 103/ul Normal 0.0-0.7 [facility] Comment on above: Performed By: #### C BC #### [facility] [address] [place] [address] Dr. Rich Cutler Eosinophils/100 WBC (Bld) 3.5 % Normal 0.9-7.0 [facility] Comment on above: Performed By: #### C BC #### [facility] [address] [place] [address] Dr. Rich Cutler Erythrocyte distribution width (RBC) [Ratio] 13.4 % Normal 11.0-15.0 [facility] Comment on above: Performed By: #### C BC #### [facility] [address] [place] [address] Dr. Rich Cutler Hematocrit (Bld) [Volume fraction] 42.3 % Normal 36.0-48.0 [facility] Comment on above: Performed By: #### C BC #### [facility] [address] [place] [address] Dr. Rich Cutler Hemoglobin (Bld) [Mass/Vol] 13.4 g/dL Normal 12.0-16.0 [facility] Comment on above: Performed By: #### C BC #### [facility] [address] [place] [address] Dr. Rich Cutler IG # 0.03 10e3/ul Normal 0.00-0.03 [facility] Comment on above: Performed By: #### C BC #### [facility] [address] [place] [address] Dr. Rich Cutler IG % 0.5 % Normal 0.0-0.5 [facility] Comment on above: Performed By: #### C BC #### [facility] [address] [place] [address] Dr. Rich Cutler LYMPH # 2.9 103/ul Normal 1.2-3.8 [facility] Comment on above: Performed By: #### C BC #### [facility] [address] [place] [address] Dr. Rich Cutler Lymphocytes/100 WBC (Bld) 44.0 % Normal 20.5-60.0 [facility] Comment on above: Performed By: #### C BC #### [facility] [address] [place] [address] Dr. Rich Cutler MANUAL DIFF REQ NO Normal [facility] Comment on above: Performed By: #### C BC #### [facility] [address] [place] [address] Dr. Rich Cutler MCH (RBC) [Entitic mass] 28.4 pg Normal 26.7-34.0 [facility] Comment on above: Performed By: #### C BC #### [facility] [address] [place] [address] Dr. Rich Cutler MCHC (RBC) [Mass/Vol] 31.7 g/dL Normal 29.9-35.2 [facility] Comment on above: Performed By: #### C BC #### [facility] [address] [place] [address] Dr. Rich Ctuler MCV (RBC) [Entitic vol] 89.6 fL Normal 81.0-99.0 [facility] Comment on above: Performed By: #### C BC #### [facility] [address] [place] [address] Dr. Rich Cutler MONO # 0.4 103/ul Normal 0.3-0.8 [facility] Comment on above: Performed By: #### C BC #### [facility] [address] [place] [address] Dr. Rich Cutler Monocytes/100 WBC (Bld) 6.6 % Normal 1.7-12.0 [facility] Comment on above: Performed By: #### C BC #### [facility] [address] [place] [address] Dr. Rich Cutler NEUT # 2.9 103/ul Normal 1.4-6.5 [facility] Comment on above: Performed By: #### C BC #### [facility] [address] [place] [address] Dr. Rich Cutler Neutrophils/100 WBC (Bld) 44.6 % Normal 43.0-75.0 [facility] Comment on above: Performed By: #### C BC #### [facility] [address] [place] [address] Dr. Rich Cutler Platelet mean volume (Bld) [Entitic vol] 11.0 fL Normal 9.5-13.5 [facility] Comment on above: Performed By: #### C BC #### [facility] [address] [place] [address] Dr. Rich Cutler PLT 272 103/ul Normal 150-450 [facility] Comment on above: Performed By: #### C BC #### [facility] [address] [place] [address] Dr. Rich Cutler RBC 4.72 106/ul Normal 4.20-5.40 [facility] Comment on above: Performed By: #### C BC #### [facility] [address] [place] [address] Dr. Rich Cutler WBC 6.5 103/ul Normal 4.0-11.0 [facility] Comment on above: Performed By: #### C BC #### [facility] [address] [place] [address] Dr. Rich Cutler FREE THYROXINE INDEX T7on FTI 2.16 Normal 1.30-4.50 [facility] Comment on above: Performed By: #### L IPID, TSH, T7, CMP #### [facility] [address] [place] [address] Dr. Rich Cutler T3U 30.0 % Normal 30.0-39.0 [facility] Comment on above: Performed By: #### L IPID, TSH, T7, CMP #### [facility] [address] [place] [address] Dr. Rich Cutler T4 [Mass/Vol] 7.20 ug/dL Normal 4.80-13.90 [facility] Comment on above: Performed By: #### L IPID, TSH, T7, CMP #### [facility] [address] [place] [address] Dr. Rich Cutler GLYCOHEMOGLOBIN A1Con 2021 ADA RECOMMENDATION SEE BELOW Normal [facility] Comment on above: Result Comment: ADA RECOMMENDED LIMIT 4.0 - 6.0 ADA THERAPEUTIC TARGET < 7.0 ACTION SUGGESTED > 7.0 Performed By: #### A 1C #### [facility] [address] [place] [address] Dr. Rich Cutler Glucose [Mass/Vol] 128 mg/dL Normal [facility] Comment on above: Performed By: #### A 1C #### [facility] [address] [place] [address] Dr. Rich Cutler HbA1c (Bld) [Mass fraction] 6.1 % Normal 4.5-6.2 [facility] Comment on above: Performed By: #### A 1C #### [facility] [address] [address] [address] Rich Cutler IRONon 09-23-2022 Iron [Mass/Vol] 64.0 ug/dL Normal 50.0-170.0 [facility] Comment on above: Performed By: #### C VDTBH #### [facility] [address] [address] [address] Rich Cutler LIPID PROFILEon 09-23-2022 CHOL-HDL RATIO NORM SEE BELOW Normal [facility] Comment on above: Result Comment: 3.3 - 4.4 LOW RISK 4.4 - 7.1 AVERAGE RISK 7.1 - 11.0 MODERATE RISK >11.0 HIGH RISK Performed By: #### L IPID, TSH, T7, CMP #### [facility] [address] [address] [address] Rich Cutler Cholesterol [Mass/Vol] 237 mg/dL Critically high <=200 [facility] Comment on above: Performed By: #### L IPID, TSH, T7, CMP #### [facility] [address] [address] [address] Rich Cutler Cholesterol in HDL [Mass/Vol] 44 mg/dL Normal 40-60 [facility] Comment on above: Performed By: #### L IPID, TSH, T7, CMP #### [facility] [address] [address] [address] Rich Cutler Cholesterol in LDL [Mass/Vol] 172.2 mg/dL Normal [facility] Comment on above: Performed By: #### L IPID, TSH, T7, CMP #### [facility] [address] [address] [address] Rich Cutler Cholesterol.total/Ch olesterol in HDL [Mass ratio] 5.4 {ratio} Normal [facility] Comment on above: Performed By: #### L IPID, TSH, T7, CMP #### [facility] [address] [address] [address] Rich Cutler HDL NORMAL > or = 60 mg/dl - LO W CARDIOVASCULAR RISK <40 mg/dl - HIGH CARDIOVASCULAR RISK Normal [facility] Comment on above: Performed By: #### L IPID, TSH, T7, CMP #### [facility] [address] [address] [address] Rich Cutler LDL CALC NORMAL SEE BELOW Normal [facility] Comment on above: Result Comment: <100 mg/dl OPTIMAL 100 - 129 mg/dl NEAR OR ABOVE OPTIMAL 130 - 159 mg/dl BORDERLINE HIGH 160 - 189 mg/dl HIGH >190 mg/dl VERY HIGH Performed By: #### L IPID, TSH, T7, CMP #### [facility] [address] [address] [address] Rich Cutler Triglyceride [Mass/Vol] 104 mg/dL Normal <=150 [facility] Comment on above: Performed By: #### L IPID, TSH, T7, CMP #### [facility] [address] [address] [address] Rich Cutler VLDL CALC 20.8 mg/dL Normal [facility] Comment on above: Performed By: #### L IPID, TSH, T7, CMP #### [facility] [address] [address] [address] Rich Cutler PROF 14(COMP METB)on 022 Albumin [Mass/Vol] 3.5 g/dL Normal 3.4-5.0 [facility] Comment on above: Performed By: #### L IPID, TSH, T7, CMP #### [facility] [address] [address] [address] Rich Cutler Albumin/Globulin [Mass ratio] 0.9 {ratio} Normal [facility] Comment on above: Performed By: #### L IPID, TSH, T7, CMP #### [facility] [address] [address] [address] Rich Cutler ALP [Catalytic activity/Vol] 93 U/L Normal 46-116 [facility] Comment on above: Performed By: #### L IPID, TSH, T7, CMP #### [facility] [address] [address] [address] Rich Cutler ALT [Catalytic activity/Vol] 44 U/L Normal 14-59 [facility] Comment on above: Performed By: #### L IPID, TSH, T7, CMP #### [facility] [address] [address] [address] Rich Cutler Anion gap [Moles/Vol] 8.5 mmol/L Normal [facility] Comment on above: Performed By: #### L IPID, TSH, T7, CMP #### [facility] [address] [place] [address] Dr. Rich Cutler AST [Catalytic activity/Vol] 26 U/L Normal 15-37 [facility] Comment on above: Performed By: #### L IPID, TSH, T7, CMP #### [facility] [address] [place] [address] Dr. Rich Cutler Bilirubin [Mass/Vol] 0.3 mg/dL Normal 0.2-1.0 [facility] Comment on above: Performed By: #### L IPID, TSH, T7, CMP #### [facility] [address] [place] [address] Dr. Rich Cutler Calcium [Mass/Vol] 9.0 mg/dL Normal 8.5-10.1 [facility] Comment on above: Performed By: #### L IPID, TSH, T7, CMP #### [facility] [address] [place] [address] Dr. Rich Cutler Chloride [Moles/Vol] 106 mmol/L Normal 98-107 [facility] Comment on above: Performed By: #### L IPID, TSH, T7, CMP #### [facility] [address] [place] [address] Dr. Rich Cutler CO2 [Moles/Vol] 31.0 mmol/L Normal 21.0-32.0 [facility] Comment on above: Performed By: #### L IPID, TSH, T7, CMP #### [facility] [address] [place] [address] Dr. Rich Cutler Creatinine [Mass/Vol] 1.11 mg/dL Critically high 0.55-1.02 [facility] Comment on above: Performed By: #### L IPID, TSH, T7, CMP #### [facility] [address] [address] [address] Rich Cutler EGFR-AF [place] >60 Normal >=60 [facility] Comment on above: Performed By: #### L IPID, TSH, T7, CMP #### [facility] [address] [address] [address] Rich Cutler EGFR-NON AF [place] 50 mL/min/1.73m2 Critically low >=60 [facility] Comment on above: Performed By: #### L IPID, TSH, T7, CMP #### [facility] [address] [address] [address] Rich Cutler Globulin (S) [Mass/Vol] 3.7 g/dL Normal [facility] Comment on above: Performed By: #### L IPID, TSH, T7, CMP #### [facility] [address] [place] [address] Dr. Rich Cutler Glucose [Mass/Vol] 121 mg/dL Critically high 74-106 [facility] Comment on above: Performed By: #### L IPID, TSH, T7, CMP #### [facility] [address] [address] [address] Rich Cutler Potassium [Moles/Vol] 4.5 mmol/L Normal 3.5-5.1 [facility] Comment on above: Performed By: #### L IPID, TSH, T7, CMP #### [facility] [address] [address] [address] Rich Cutler Protein [Mass/Vol] 7.2 g/dL Normal 6.4-8.2 [facility] Comment on above: Performed By: #### L IPID, TSH, T7, CMP #### [facility] [address] [address] [address] Rich Cutler Sodium [Moles/Vol] 141 mmol/L Normal 136-145 [facility] Comment on above: Performed By: #### L IPID, TSH, T7, CMP #### [facility] [address] [address] [address] Rich Cutler Urea nitrogen [Mass/Vol] 16.0 mg/dL Normal 7.0-18.0 [facility] Comment on above: Performed By: #### L IPID, TSH, T7, CMP #### [facility] [address] [address] [address] Rich Cutler Urea nitrogen/Creatinine [Mass ratio] 14.4 mg/mg Normal [facility] Comment on above: Performed By: #### L IPID, TSH, T7, CMP #### [facility] [address] [address] [address] Rich Cutler TSHon 09-23-2022 TSH 3.915 uIU/mL Critically high 0.358-3.740 [facility] Comment on above: Performed By: #### L IPID, TSH, T7, CMP #### [facility] [address] [address] [address] Rich Cutler Physician Referralon 022 Physician Referral [phone] [id number] Normal [facility] Lipid Panelon 10-07-2021 Cholesterol [Mass/Vol] 205 mg/dL High 140-200 [facility] Comment on above: Result Comment: Chol less than 200 mg/dl low risk Chol 201-239 mg/dl borderline risk Chol 240 mg/dl and greater high risk Performed By: #### L IPID, [id number], TSH3 wRFLX #### [facility] [address] [id number] [place] Cholesterol in HDL [Mass/Vol] 25 mg/dL Low 35-85 [facility] Comment on above: Result Comment: HDL CHOL ATP-III CLASSIFICATION Cardiovascular Risk HDL > or equal to 60 mg/dL LOW HDL < 40 mg/dL HIGH Performed By: #### L IPID, [id number], TSH3 wRFLX #### [facility] [address] [id number] [place] Cholesterol.total/Ch olesterol in HDL [Mass ratio] 8.2 {ratio} Normal <5.0 [facility] Comment on above: Performed By: #### L IPID, [id number], TSH3 wRFLX #### [facility] [address] LDL Cholesterol,Calculat ed 160 mg/dL High 0-100 [facility] Comment on above: Result Comment: LDL ATP III CLASSIFICATION LDL less than 100 mg/dL Optimal LDL 100-129 mg/dL Near or above optimal LDL 130-159 mg/dL Borderline high LDL 160-189 mg/dL High LDL greater than 189 mg/dL Very high Performed By: #### L IPID, [id number], TSH3 wRFLX #### [facility] [address] Triglyceride w/Reflex 100 mg/dL Normal 35-149 [facility] Comment on above: Result Comment: TRIG ATP III CLASSIFICATION TRIG less than 150 mg/dL Normal TRIG 150-199 mg/dL Borderline high TRIG 200-500 mg/dL High TRIG greater than 500 mg/dL Very high Standard traceable to the Center for Disease Conrtrol and Prevention (CDC) test method. Performed By: #### L IPID, [id number], TSH3 wRFLX #### [facility] [address] [place] [address] VLDL CHOLESTEROL 20 mg/dL Normal [facility] Comment on above: Performed By: #### L IPID, [id number], TSH3 wRFLX #### [facility] [address] [place] [address] Thyroid Stim Hormone w/Rflxo n 10-07-2021 Thyroid Stim Hormone w/Rflx 3.27 u[iU]/mL Normal 0.45-5.33 [facility] Comment on above: Performed By: #### L IPID, [id number], TSH3 wRFLX #### [facility] [address] [place] [address] Vitamin D 25 Hydroxy Totalon 10-07-2021 Vitamin D 25 Hydroxy Total 26.5 ng/mL Low 30-100 [facility] Comment on above: Result Comment: JACKELINE MIN D STATUS 25(OH)VITAMIN D RANGE (ng/mL) Deficient <20 Insufficient 20 to <30 Sufficient 30 to 100 Reference: Lanny MF,Gino NC, Dyan VALENZUELA, et al. Evaluation,treatment, and prevention of vitamin D deficiency; an Endocrine Society clinical practice guideline. JCEM. 2011 May; 96(7):1911-30. PERFORMED BY: [facility] [address] [place] [address] PATHOLOGIST [employer]ING [employer]LE REPAIRER SILVESTRE SCHULER M.D. Performed By: #### L IPID, [id number], TSH3 wRFLX #### [facility] [address] [id number] [facility] Vital Signs Date Time Vital Sign Value Performing Clinician Faci lity 10-06-2022 15:36-0500 Blood Pressure Location Umm MARTÍNEZ [facility] 10-06-2022 15:36-0500 Diastolic blood pressure 86 mm[Hg] Umm JACQUESL [facility] 10-06-2022 15:36-0500 Heart rate 72 /min Umm NILL [facility] 10-06-2022 15:36-0500 Respiratory rate 16 /min Umm NILL [facility] 10-06-2022 15:36-0500 Systolic blood pressure 126 mm[Hg] Umm NILL [facility] Encounters Encounter Date Encounter Type Care Provider Facility Start: 06-21-2024 End: 06-21-2024 ambulatory [facility] Start: 05-26-2024 End: 05-26-2024 ambulatory [facility] Start: 11-26-2022 Encounter for preprocedural laboratory examination DR UMM MARTÍNEZ . [facility] Start: 11-25-2022 End: 11-26-2022 ambulatory Umm MARTÍNEZ Facility:[id number] Start: 11-20-2022 End: 11-21-[address] UMM MARTÍNEZ . Facility: Start: 11-20-2022 End: 11-21-2022 Encounter for preprocedural laboratory examination DR UMM MARTÍNEZ . Facility:[facility] Start: 10-06-2022 End: 10-07-2022 ambulatory Umm R NILL Facility:[facility] Start: 10-06-2022 End: 10-06-2022 Patient encounter procedure Umm Michael NILL [facility] Start: 10-02-2022 End: 10-03-[address] KENDRA MURILLO . Facility:[facility] Start: 09-30-2022 End: 10-01-[address] KENDRA MURILLO . Facility:[facility] Start: 09-28-2022 Encounter for genera l adult medical examination without abnormal findings DR KENDRA MURILLO . [facility] Start: 09-24-2022 End: 09-24-[address] [...] stent Umm NILL Bilateral tubal ligation Ad hawill NILL Catheterization of l eft heart Umm NILL Cholecystectomy Umm NILL Cystoscopic insertio n of ureteric stent Umm NILL Dilation and curetta ge of uterus Umm NILL Vaginal hysterectomy Umm NILL Immunizations Immunization Date Immunization Notes Care Provider Fa [facility] 04-14-2021 SARS-CoV-2 (COVID-19 ) mRNA [id number] vax Umm NILL [facility] 03-11-2021 SARS-CoV-2 (COVID-19 ) mRNA [id number] vax Umm NILL [facility] Payers Date Payer Category Payer Medicaid [id number] 1965 Unknown [id number] 2.16.8 [id number] 1965 Unknown [id number] 2.16.8 [id number] 1965 Unknown [id number] 2.16.84 [id number] 1965 Unknown [id number] 2.16.84 [id number] 1965 Unknown [id number] 2.16.84 [id number] 1964 Unknown [id number] 2.16.84 [id number] 1964 Unknown [id number] 2.16.84 [id number] 1964 Unknown [id number] 2.16.84 [id number] 1965 Unknown [id number] 2.16.84 [id number] 1960 Self-pay [id number] 1960 Unknown [id number] Social History Date Type Detail Facility Start: 10-06-2022 Tobacco smoking status Ex-smoker (fi nding) [facility] Tobacco smoking status Never [facility] Sex Assigned At Female [facility] Functional Status Date Assessment Result Facility 10-06-2022 Functional Status N/A [facility] Progress note 06-21-2024 Note Date & Type Note Facility 06-21-2024 Note [facility] Ceasar Madrigal is a 59 y.o. year old female patient being seen for follow up [facility] ED per Dr. Murillo. She has not had the echo done yet that was ordered by Dr. Mitchell. Patient states Dr. Murillo did not like the last ECG she had in the ED. When she saw Dr. Mitchell on 05/26, metoprolol was switched to carvedilol. Patient states she was taking both beta blockers at the same time, as she was unaware to stop metoprolol. She didn't like the way the carvedilol made her feel so she stopped it. Dr. Mitchell also wanted her to stop the PM dose of clonidine, but Dr. Murillo just doubled it yesterday to 0.2mg bid per patient. She denies chest pain, palpitations, and lightheadedness/syncope. She has intermittent SOB at rest, which she thinks is due to quality of air. C/o headaches. Patient Active Problem List Diagnosis BV (bacterial vaginosis) GERD (gastroesophageal reflux disease) Essential hypertension Sepsis (CMS/HCC) TIA (transient ischemic attack) QURESHI (dyspnea on exertion) Atherosclerosis of [place] coronary artery of [place] heart without angina pectoris Hyperlipidemia Murmur, heart Family History Problem Relation Name Age of Onset Lung cancer Mother No Known Problems Father Lung cancer Sister Social History Tobacco Use Smoking status: Former Packs/day: 1.00 Years: 45.00 Additional pack years: 0.00 Total pack years: 45.00 Types: Cigarettes Quit date: 2021 Years since quittin.5 Smokeless tobacco: Never Substance Use Topics Alcohol use: Not Currently Comment: Used to drink a lot on the weekend Drug use: Never HPI Aby is seen as an urgent visit after recent admission to the emergency room and finding of abnormal ECG. She is a 59-year-old woman who was previously evaluated in our office on 05/26/2024. She has prior history of hypertension, TIA, panic attacks and sleep apnea and prior history of smoking. It appears that recently she has been having uncontrolled hypertension and was admitted the hospital with hypertensive urgency. On a recent CTA of the chest there was evidence of moderate calcifications in the coronary arteries. She underwent a treadmill nuclear stress test on 05/19/2024 whereby there were some worsening of baseline ST changes suggestive of ischemia however the nuclear perfusion was normal with an LV ejection fraction of 72%. She then presented to the emergency room few days ago [twice on 723 and on 06/17/2024] because of nausea and vomiting and was found to have elevated blood pressure and an EKG was performed and there was new T wave inversions in 1, aVL, V5 and V6. Today she is seen in follow-up because of that. note that an echocardiogram was ordered at her prior cardiology visit but this was not done yet. At that visit metoprolol was switched to carvedilol however she remained on metoprolol. Her blood pressure today is elevated. She denies chest pain. She has occasional shortness of breath on exertion that is not limiting. No significant lower extremity edema. She has occasional palpitations. No dizziness or lightheadedness. She does have occasional headaches. She reports that her blood pressure at home has been elevated. And the blood pressure gets more elevated at physicians office. Review of Systems Cardiovascular: Positive for palpitations ( not a lot ). Respiratory: Positive for shortness of breath (intermittent). Neurological: Positive for headaches. All other systems reviewed and are negative. Objective Visit Vitals BP 178/74 (BP Location: Left arm, Patient Position: Sitting) Pulse 62 Ht 1.6 m (5' 3 ) Wt 97.5 kg (215 lb) SpO2 95% BMI 38.09 kg/m??? Smoking Status Former BSA 2.08 m??? Physical Exam Constitutional: Appearance: She is well-developed. She is obese. She is not ill-appearing. HENT: Head: Normocephalic and atraumatic. Nose: Nose normal. Eyes: General: No scleral icterus. Pupils: Pupils are equal, round, and reactive to light. Neck: Thyroid: No thyromegaly. Vascular: No JVD. Cardiovascular: Rate and Rhythm: Normal rate and regular rhythm. Pulses: Radial pulses are 2+ on the right side and 2+ on the left side. Heart sounds: Normal heart sounds. No murmur heard. No friction rub. No gallop. Pulmonary: Effort: Pulmonary effort is normal. No respiratory distress. Breath sounds: Normal breath sounds. No wheezing or rales. Chest: Chest wall: No tenderness. Abdominal: General: Bowel sounds are normal. There is no distension. Palpations: Abdomen is soft. Tenderness: There is no abdominal tenderness. Musculoskeletal: General: No swelling. Cervical back: Neck supple. Skin: General: Skin is warm and dry. Neurological: General: No focal deficit present. Mental Status: She is alert and oriented to person, place, and time. Psychiatric: Mood and Affect: Mood normal. Behavior: Behavior is cooperative. Judgment: Judgment no (more content not included)... [facility] Progress note 05-26-2024 Note Date & Type Note Facility 05-26-2024 Note [facility] Note Reason for cardiology [...] PSYCH: appropriate mood, (more content not included)... [facility] Clinical Note 11-25-2022 Note Date [...] 10 years. CC: Kendra Murillo M.D. [facility] Clinical Note 10-11-2022 Note Date & [...] 1 tab(s), Oral, (more content not included)... [facility] Comment on above: Result Comment: Elec tronically Signed By: DIPESH BUCKNER, Umm Hogan\Date and Time Signed: 10/11/22 11:01 EST Evaluation + Plan note Note Date & Type Note Facility Evaluation + Plan note No data available for this section [facility] Discharge instructions Note Date & Type Note Facility Hospital Discharge instructions No data available for this section [facility] Progress note Note Date & Type Note Facility Progress note No data available for this section [facility] Summary Purpose Family History No Family History Records FoundNo Family History Records FoundNo Family History Records FoundNo Family History Records Found Advance Directives No Advanced Directives Records FoundNo Advanced Directives Records FoundNo Advanced Directives Records FoundNo Advanced Directives Records Found Additional Source Comments INFORMATION SOURCE (unrecogn ized section and content) DATE CREATED AUTHOR 12/17/2021 [facility] DATE CREATED AUTHOR AUTHOR'S ORGANIZ ATION 12/16/2022 [facility] DATE CREATED AUTHOR AUTHOR'S ORGANIZ ATION 03/26/2023 [facility] DATE CREATED AUTHOR AUTHOR'S ORGANIZ ATION 06/23/2024 [facility] Patient Care team informatio n (unrecognized section and content) Personnel Name: Kendra Murillo MD Address: Address: [address] [place] [address] Personnel Name: Kendra Murillo MD Address: Address: [address] [place] [address] FOR RECORDS PERTAINING TO PATIENTS WHO ARE [...] BE BASED ON THE PRIMARY CLINICAL RECORDS. [facility] [employer] [facility]. provides no warranty or guarantee of the accuracy or completeness of information in this document.
--- NOTE | 2024-06-29 02:28 | ED.CHESTPAI1 ---
HPI - Chest Pain General Chief Complaint: Chest Pain Stated Complaint: chest pain Time Seen by Provider: 06/29/24 02:07 Source: patient Mode of arrival: Wheelchair History of Present Illness HPI narrative: This 59-year-old female with a history of hypertension and diabetes who has recently been evaluated by cardiology and had a normal Cardiolite stress test presents for evaluation of chest discomfort. The patient states she woke up this morning and had discomfort in her chest. She cannot describe it. She does not think it radiates but complains that she feels some heat on the back of her neck and across her upper shoulders. She does not think she is short of breath. She does not feel dizzy or diaphoretic. She has no abdominal pain or back pain. She states that the manager of tax recently switched her blood pressure medication to losartan and she seems to be improving on that however her blood pressure this morning was 230/80 upon arrival to the emergency department. She is here with her daughter. She takes a daily baby aspirin for going to bed at night which she did take. Recently admitted for uncontrolled hypertension and she states at that time her doctor did not like the way her EKG left so she was referred to cardiology and her cardiac workup so far has been normal but she has not had the exercise portion of the stress test. Related Data Home Medications ?Medication ?Instructions ?Recorded ?Confirmed metoprolol tartrate 100 mg tablet 100 mg PO Q12H 08/13/23 06/29/24 metformin 500 mg tablet 500 mg PO BID 04/21/24 06/29/24 aspirin 81 mg capsule 81 mg PO DAILY 04/22/24 06/29/24 furosemide 20 mg tablet (Lasix) 20 mg PO DAILY 04/22/24 06/29/24 lorazepam 0.5 mg tablet (Ativan) 0.25 mg PO Q8H PRN panic attack(s) 04/22/24 06/29/24 clonidine HCl 0.1 mg tablet 0.1 mg PO Q12H 06/13/24 06/29/24 losartan 50 mg tablet 50 mg PO DAILY 06/29/24 06/29/24 quetiapine 25 mg tablet 50 mg PO BEDTIME 06/29/24 06/29/24 Allergies Allergy/AdvReac Type Severity Reaction Status Date / Time amlodipine Allergy Mild Headache Verified 06/29/24 02:16 alprazolam [From Xanax] AdvReac Severe Watery Eye Verified 06/29/24 02:16 Review of Systems ROS Status of ROS 10 or more systems reviewed and unremarkable except as noted in history and below [facility] Medical History (Updated 06/29/24 @ 04:14 by Ayaka Beauchamp MD) Shortness of breath ?R06.02 - Shortness of breath (ICD-10) Headache ?R51.9 - Headache, unspecified (ICD-10) Elevated d-dimer ?R79.89 - Other specified abnormal findings of blood chemistry (ICD-10) Hypertensive emergency ?I16.1 - Hypertensive emergency (ICD-10) Uncontrolled hypertension ?I10 - Essential (primary) hypertension (ICD-10) Irritable bowel syndrome ?K58.9 - Irritable bowel syndrome without diarrhea (ICD-10) H/O nephrolithotomy with removal of calculi ?Z98.890 - Other specified postprocedural states (ICD-10) ?Z87.442 - Personal history of urinary calculi (ICD-10) Kidney stone ?N20.0 - Calculus of kidney (ICD-10) Sepsis ?A41.9 - Sepsis, unspecified organism (ICD-10) H/O angiography ?Z92.89 - Personal history of other medical treatment (ICD-10) Lung nodule ?R91.1 - Solitary pulmonary nodule (ICD-10) Anxiety ?F41.9 - Anxiety disorder, unspecified (ICD-10) HTN (hypertension) ?I10 - Essential (primary) hypertension (ICD-10) Diabetes ?E11.9 - Type 2 diabetes mellitus without complications (ICD-10) TIA (transient ischemic attack) ?G45.9 - Transient cerebral ischemic attack, unspecified (ICD-10) Surgical History (Updated 04/22/24 @ 01:20 by Stalin Kevin) History of appendectomy ?Z90.49 - Acquired absence of other specified parts of digestive tract (ICD-10) H/O tubal ligation ?Z98.51 - Tubal ligation status (ICD-10) History of cholecystectomy ?Z90.49 - Acquired absence of other specified parts of digestive tract (ICD-10) Family History (Updated 04/22/24 @ 01:15 by Stalin Kevin) Mother Family history of cancer Father MVA (motor vehicle accident) Brother Family history of stroke Social History (Updated 04/22/24 @ 01:26 by Stalin Kvein) Within the past year, how often did you have a drink containing alcohol: never Within the past year, how often did you have six or more drinks on one occasion: never Score interpretation: A score less than 3 is consistent with normal alcohol consumption. Smoking status: Former smoker Second hand tobacco smoke exposure: No Non-prescribed substance use: denies use Previous occupational history: no Known occupational exposures/hazards: No Highest level of school completed/degree received: high school graduate Do you want help with school or training: No Are you now , , , , never or living with a partner: In a typical week, how many times do you talk on the telephone with family, friends, or neighbors: 3 or more times per week How often do you get together with friends or relatives: 3 or more times per week How often do you attend nondenominational or rastafarian services: never Do you belong to any clubs or organizations such as nondenominational groups unions, fraternal or athletic groups, or school groups: no Total score: 1 Score interpretation: A score of less than or equal to 1 indicates the most socially isolated. Little interest or pleasure in doing things: not at all Feeling down, depressed, or hopeless: not at all Feel stressed/tense/nervous/anxious/difficulty sleeping: not at all Gender Identity: female Exam Narrative Exam Narrative: Vital signs and Nursing Notes reviewed: Patient is afebrile with a normal pulse, blood pressure is elevated at 230/79, she is not hypoxic with pulse ox of 96% on room air General: Awake, alert, oriented, no acute distress, lying comfortably on the stretcher HEENT: Normocephalic atraumatic, mucous membranes are moist and pink, eyes are clear, normal conjunctiva, vision is grossly intact Neck: Supple, no JVD Chest: Lungs are clear to auscultation with good air entry, there is no wheezing rhonchi or rales appreciated no accessory muscle use, patient is speaking in complete sentences-no chest wall tenderness to palpation CVS: Regular rate and rhythm S1-S2, no murmurs rubs or gallops, pulses are brisk and equal bilaterally ABD: Soft, nondistended, nontender, no rebound guarding or rigidity, bowel sounds are normal, no pulsatile masses appreciated Extremities: Moving all extremities, no lower extremity tenderness or swelling noted, negative Homans' sign, pulses are brisk and equal bilaterally Skin: Normal in appearance without rash,pallor, petechiae or purpura Neuro: No focal deficits Constitutional Vital Signs, click to edit/add: Last Vital Signs Temp 97.5 F L 06/29/24 04:55 Pulse 68 06/29/24 06:32 Resp 18 06/29/24 04:55 BP 180/78 H 06/29/24 06:32 Pulse Ox 94 L 06/29/24 04:55 O2 Del Method Room Air 06/29/24 04:56 Course Vital Signs Vital signs: Vital Signs Temperature 98.3 F 06/29/24 02:10 Pulse Rate 70 06/29/24 02:10 Respiratory Rate 18 06/29/24 02:10 Pulse Oximetry 96 06/29/24 02:10 Oxygen Delivery Method Room Air 06/29/24 02:10 Temperature 97.5 F L 06/29/24 04:55 Pulse Rate 68 06/29/24 06:32 Respiratory Rate 18 06/29/24 04:55 Blood Pressure 180/78 H 06/29/24 06:32 Pulse Oximetry 94 L 06/29/24 04:55 Oxygen Delivery Method Room Air 06/29/24 04:56 MDM - Chest Pain MDM Narrative Medical decision making narrative: This 59-year-old female with a history of hypertension, anxiety and diabetes presents for evaluation of chest discomfort. The patient states symptoms started this morning upon awakening to go to the bathroom. She denies any shortness of breath dizziness diaphoresis or syncope. She states there is no specific radiation of the pain but she has a warm feeling across her shoulders. She was recently admitted at this facility for uncontrolled hypertension and was seen by cardiology and had a nuclear medicine myocardial perfusion stress test which was normal. She has not had the exercise portion of this test yet. Upon arrival an EKG was ordered and compared to a previous EKG. The EKGs are essentially unchanged with the exception of lead III. There was no acute findings. An IV was placed and she was given 10 mg of IV labetalol due to an elevated blood pressure in the 230s over 70s. She was also medicated with baby aspirin and nitroglycerin. Her chest pain improved after the nitroglycerin. Her blood pressure came down somewhat after the nitroglycerin and labetalol. Routine labs are reviewed. She has a normal white count and hemoglobin. Electrolytes are normal. Potassium is mildly decreased at 3.2. Troponin is normal. 1 view chest x-ray was reviewed by myself and does not show any acute findings. On reevaluation her blood pressure is now in the 170s over 80s. And after the nitroglycerin her chest pain has resolved. She has had several trips to the bathroom. She states that she does not have a gallbladder and has irritable bowel syndrome and today is her day to po. In light of her diabetes, hypertension and chest pain with systolic blood pressure in the 230s I feel it would be prudent to readmit her for further evaluation and treatment of blood pressure management. She is in agreement with this. The case was discussed with the hospitalist and the patient is excepted for admission, observation status. The ICU is not currently available for admission purposes and the patient will be admitted to [facility] with telemetry monitoring. Medical Records Data Attestation: I reviewed the patient's medical records. Lab Data Attestation: I reviewed the patient's lab results. Labs: Lab Results 06/29/24 Range/Units 02:30 WBC 7.1 (4.0-11.0) 10^3/uL RBC 4.78 (4.20-5.40) 10^6/uL Hgb 13.3 (12.0-16.0) g/dL Hct 40.3 (36.0-48.0) % MCV 84.3 (81.0-99.0) fL MCH 27.8 (26.7-34.0) pg MCHC 33.0 (29.9-35.2) g/dL RDW 14.6 (11.0-15.0) % Plt Count 251 (150-450) 10^3/uL MPV 10.3 (9.5-13.5) fL Neut % (Auto) 58.4 (43.0-75.0) % Lymph % (Auto) 30.5 (20.5-60.0) % Ellis % (Auto) 6.9 (1.7-12.0) % Eos % (Auto) 3.1 (0.9-7.0) % Baso % (Auto) 0.8 (0.2-2.0) % Neut # (Auto) 4.2 (1.4-6.5) 10^3/uL Lymph # (Auto) 2.2 (1.2-3.8) 10^3/uL Ellis # (Auto) 0.5 (0.3-0.8) 10^3/uL Eos # (Auto) 0.2 (0.0-0.7) 10^3/uL Baso # (Auto) 0.1 (0.0-0.1) 10^3/uL Abs Immat Gran (auto) 0.02 (0.00-0.03) 10^3/uL Imm/Tot Granulo (auto) 0.3 (0.0-0.5) % Sodium 142 (136-145) mmol/L Potassium 3.2 L (3.5-5.1) mmol/L Chloride 106 (98-107) mmol/L Carbon Dioxide 28.4 (21.0-32.0) mmol/L Anion Gap 10.8 BUN 15.0 (7.0-18.0) mg/dL Creatinine 1.04 H (0.55-1.02) mg/dL Est GFR ( Amer) >60 (>=60) Est GFR (Non-Af Amer) 54 L (>=60) BUN/Creatinine Ratio 14.4 Glucose 140 H (74-106) mg/dL Calcium 8.7 (8.5-10.1) mg/dL Total Bilirubin 0.3 (0.2-1.0) mg/dL AST 22 (15-37) U/L ALT 60 H (14-59) U/L Alkaline Phosphatase 99 (46-116) U/L Troponin I High Sens 7.7 (4.0-51.3) pg/mL Total Protein 6.7 (6.4-8.2) g/dL Albumin 3.3 L (3.4-5.0) g/dL Globulin 3.4 g/dL Albumin/Globulin Ratio 1.0 ECG Data Attestation: I personally reviewed and interpreted this ECG as follows: (Sinus rhythm at 68 bpm, normal axis, nonspecific ST changes including a flipped T wave in lead I aVL and mild ST depression in lead V5 and V6. This was compared to an EKG dated 06/17/2024 in which she had flipped T waves in lead V3 and V4 as well as lead I and aVL. At that time her QRS complex was ) Heart Score History: Moderately Suspicious ECG: Sign. ST Depression Age: >45-<65 years Risk Factors: 1 or 2 Risk Factors Troponin: <Normal Limit Total Heart Score Recommendations & Risks:: 5 Critical Care Time Critical Care Time Critical Care Time: Yes Total Critical Care Time: 35 Attestation: Critical care time including assessment of markedly elevated blood pressure, acute treatment of chest pain with nitroglycerin, IV labetalol, review of recent lab studies and cardiac studies were used to evaluate this patient and ultimately decided to admit her for further evaluation and treatment of markedly elevated blood pressure and chest pain. Discharge Plan Discharge Chief Complaint: Chest Pain Clinical Impression: Chest pain, Hypertension, uncontrolled, Hypokalemia Patient Disposition: Admitted as Observation Time of Disposition Decision: 04:15 Condition: Fair Discharge Date/Time: 06/29/24 04:38
[2024-06-29 02:35] LABS: Basophils Absolute Auto 0.1 10^3/uL (0.0-0.1); Basophils Percent Auto 0.8 % (0.2-2.0); Eosinophils Absolute Auto 0.2 10^3/uL (0.0-0.7); Eosinophils Percent Auto 3.1 % (0.9-7.0); Hematocrit 40.3 % (36.0-48.0); Hemoglobin 13.3 g/dL (12.0-16.0); Immature Granulocytes Abs Auto 0.02 10^3/uL (0.00-0.03); Immature Granulocytes Pct Auto 0.3 % (0.0-0.5); Lymphocytes Absolute Auto 2.2 10^3/uL (1.2-3.8); Lymphocytes Percent Auto 30.5 % (20.5-60.0); Mean Corpuscular Hemoglobin 27.8 pg (26.7-34.0); Mean Corpuscular Volume 84.3 fL (81.0-99.0); Mean Platelet Volume 10.3 fL (9.5-13.5); Monocytes Absolute Auto 0.5 10^3/uL (0.3-0.8); Monocytes Percent Auto 6.9 % (1.7-12.0); Neutrophils Absolute Auto 4.2 10^3/uL (1.4-6.5); Neutrophils Percent Auto 58.4 % (43.0-75.0); Platelet Count 251 10^3/uL (150-450); Red Blood Count 4.78 10^6/uL (4.20-5.40); Red Cell Distribution Width 14.6 % (11.0-15.0); White Blood Count 7.1 10^3/uL (4.0-11.0)
[2024-06-29] MEDS: ASPIRIN 81 MG TAB.CHEW 243 MG PO (02:50)
[2024-06-29] MEDS: LABETALOL HCL 20 MG/4 ML SYRINGE 10 MG IVP (02:51)
[2024-06-29 02:54] LABS: Alanine Aminotransferase 60 U/L (14-59); Albumin Level 3.3 g/dL (3.4-5.0); Alkaline Phosphatase 99 U/L (46-116); Anion Gap 10.8; Aspartate Amino Transferase 22 U/L (15-37); BUN Creatinine Ratio 14.4; Bilirubin Total 0.3 mg/dL (0.2-1.0); Calcium 8.7 mg/dL (8.5-10.1); Carbon Dioxide 28.4 mmol/L (21.0-32.0); Chloride 106 mmol/L (98-107); Estimated GFR (African America >60 (>=60); Estimated GFR (Non-African Ame 54 (>=60); Globulin 3.4 g/dL; Glucose 140 mg/dL (74-106); Potassium 3.2 mmol/L (3.5-5.1); Sodium 142 mmol/L (136-145); Total Protein 6.7 g/dL (6.4-8.2); Troponin I High Sensitivity 7.7 pg/mL (4.0-51.3)
[2024-06-29] MEDS: NITROGLYCERIN 0.4 MG BOTTLE SL ×2 (02:57→18:02)
[2024-06-29] MEDS: LORAZEPAM 0.5 MG TABLET 1 MG PO (03:20)
[2024-06-29] MEDS: NITROGLYCERIN 2% 1 GRAM PACKET 1 GM TD (04:25)
--- OUTSIDE RECORDS SUMMARY | 2024-06-29 04:47 | XMS_ITS | CCD ---
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 Name Role Phone Kendra Murillo Primary Care [...] Medication Allergies] Propensity to adverse reactions (disorder) [facility] Repository (1 source) ALPRAZolam; 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: [ALPRAZOLAM] Drug Allergy 4 [facility] Repository (1 source) amLODIPine; 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: [AMLODIPINE] Drug Allergy 4 [facility] Repository (1 source) Lisinopril; 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: [LISINOPRIL] Drug Allergy 4 [facility] Repository Medications Current Medications Medication Drug Class(es) [...] Coronary arteriosclerosis; 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: [Atherosclerotic heart disease of [place] coronary artery without angina pectoris] Onset: 3 [...] 11-26-2022 12-20-2019 Episodic Other aftercare (1 source) shelter (current) use of aspirin; 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: [DETENTION CURRENT USE OF ASPIRIN] Onset: 11-26-2022 Episodic Other aftercare (1 source) 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; 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: [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] Onset: 11-26-2022 Episodic Other [...] Range Facility Office Visiton 06-21-2024 Follow-up visit [id number] Aby Madrigal Cristina 1965 [facility] Provider Department Center 06/21/2024 GOMEZ KENDALL RIAZ [place] Family History Problem Relation Age of Onset Lung cancer Mother No Known Problems Father Lung cancer Sister Family Status - Relation Status Age at Mother Father Sister Level of Service:29469 [place] OFFICE/OUTPATIENT ESTABLISHED MOD MDM 30 MIN Normal [facility] Office Visiton 05-26-2024 Follow-up visit [id number] Aby Madrigal Cristina 1965 Provider Department Center 05/26/2024 [id number] GRADY RIAZ [place] Family History Problem Relation Age of Onset Lung cancer Mother No Known Problems Father Lung cancer Sister Family Status - Relation Status Age at Mother Father Sister Level of Service:18716 [place] OFFICE/OUTPATIENT NEW MODERATE MDM 45 MINUTES Normal [facility] Outside Colonoscopyon 2022 Outside Colonoscopy [id number]:127 Normal [facility] Reminderson 11-27-2022 Reminders - From: Na Hayes LPN To: N - Clinical; Sent: 11/27/2022 12:46:10 EST Show up: 10/25/2032 07:00:00 EST Subject: colonoscopy recall Due Date/Time: 11/25/2032 07:00:00 EST Reminder/Recall Patient is due for screening colonoscopy 11/25/2032. Normal [facility] Lab Reportson 11-24-2022 Lab Reports [id number]:127 Normal [facility] Covid-19 PCR ([facility]on [facility]-24 SARS-CoV-2 (COVID-19) RNA BECK+probe Ql (Unsp spec) Not detected Normal NOT DETECTED [facility] Comment on above: Result Comment: This test is not yet approved or cleared by the [place] FDA. When there are no FDA-approved or cleared tests available, and other criteria are met, FDA can make tests available under an emergency access mechanism called an Emergency Use Authorization (EUA). The EUA for this test is supported by the Driver Sales of Health and Human Service's (HHS's) declaration [...] consistent with SARS-CoV-2. Performed By: #### C [facility] #### [facility] [address] [place] [address] Dr. Rich Cutler Consent for Procedure/Surger yon 10-07-2022 Consent for Procedure/Surgery [id number]:127 Normal [facility] Ambulatory Visit Summaryon 1 12-06-2021 Ambulatory [...] for. Allergic conjunctivitis Anticoagulated Kidney stones Normal [facility] VC VENOUS REFLUX NINO LMTon 1 12-02-2021 VC VENOUS REFLUX NINO LMT Patient: ABY MADRIGALRaul Exam Date: 10/02/2022 : 1965 Gender:F Ordering : DR KENDRA MURILLO . 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 Tech Note: Incompetent SFJ and GSV. Patent varicose vein mid/med calf 2.9mm with 0s reflux. Patent varicose vein prox/post calf 3.8mm with 0s reflux. Patent varicose vein dist/med thigh 3.8mm with 2.0s reflux. CONCLUSION: 1. Mild right and [id number] left great saphenous vein venous insufficiency with dilatation 2. Left saphenous popliteal junction reflux 3. Mild left anterior accessory saphenous vein venous insufficiency without dilatation 4. Small bilateral incompetent varicose veins Dictated by: Adelia Lezama MD on 10/02/2022 at 13:36 Approved by: Adelia Lezama MD on 10/02/2022 at 13:52 Normal [facility] ECHOCARDIO M/2D COMPLETEon 1 11-30-2021 ECHOCARDIO M/2D COMPLETE Patient: ABY MADRIGAL Exam Date: 09/30/2022 : 1965 Gender:F Ordering : DR KENDRA MURILLO . Admission #: [id number] Family : Order #: [id number] CLICK HERE TO VIEW EXAM ECHOCARDIOGRAM REPORT [...] M.D. on 09/30/2022 at 18:37 Normal [facility] BNPon 09-24-2022 Natriuretic peptide B (Bld) [Mass/Vol] 501.0 pg/mL Normal <=900.0 [facility] Comment on above: Performed By: #### C VDTBH #### [facility] [address] [place] [address] Dr. Rich Cutler CBC AUTO DIFFon 09-24-2022 BASO # 0.1 103/ul Normal 0.0-0.1 [facility] Comment on above: Performed By: #### C VDTBH #### [facility] [address] [place] [address] Dr. Rich Cutler Basophils/100 WBC (Bld) 0.8 % Normal 0.2-2.0 [facility] Comment on above: Performed By: #### C VDTBH #### [facility] [address] [place] [address] Dr. Rich Cutler EO # 0.3 103/ul Normal 0.0-0.7 [facility] Comment on above: Performed By: #### C VDTBH #### [facility] [address] [place] [address] Dr. Rich Cutler Eosinophils/100 WBC (Bld) 3.4 % Normal 0.9-7.0 [facility] Comment on above: Performed By: #### C VDTBH #### [facility] [address] [place] [address] Dr. Rich Cutler Erythrocyte distribution width (RBC) [Ratio] 13.3 % Normal 11.0-15.0 [facility] Comment on above: Performed By: #### C VDTBH #### [facility] [address] [place] [address] Dr. Rich Cutler Hematocrit (Bld) [Volume fraction] 40.5 % Normal 36.0-48.0 [facility] Comment on above: Performed By: #### C VDTBH #### [facility] [address] [place] [address] Dr. Rich Cutler Hemoglobin (Bld) [Mass/Vol] 13.1 g/dL Normal 12.0-16.0 [facility] Comment on above: Performed By: #### C VDTBH #### [facility] [address] [place] [address] Dr. Rich Cutler IG # 0.02 10e3/ul Normal 0.00-0.03 [facility] Comment on above: Performed By: #### C VDTBH #### [facility] [address] [place] [address] Dr. Rich Cutler IG % 0.3 % Normal 0.0-0.5 [facility] Comment on above: Performed By: #### C VDTBH #### [facility] [address] [place] [address] Dr. Rich Cutler LYMPH # 2.7 103/ul Normal 1.2-3.8 [facility] Comment on above: Performed By: #### C VDTBH #### [facility] [address] [place] [address] Dr. Rich Cutler Lymphocytes/100 WBC (Bld) 35.4 % Normal 20.5-60.0 [facility] Comment on above: Performed By: #### C VDTBH #### [facility] [address] [place] [address] Dr. Rich Cutler MANUAL DIFF REQ NO Normal [facility] Comment on above: Performed By: #### C VDTBH #### [facility] [address] [place] [address] Dr. Rich Cutler MCH (RBC) [Entitic mass] 28.2 pg Normal 26.7-34.0 [facility] Comment on above: Performed By: #### C VDTBH #### [facility] [address] [place] [address] Dr. Rich Cutler MCHC (RBC) [Mass/Vol] 32.3 g/dL Normal 29.9-35.2 [facility] Comment on above: Performed By: #### C VDTBH #### [facility] [address] [place] [address] Dr. Rich Cutler MCV (RBC) [Entitic vol] 87.3 fL Normal 81.0-99.0 [facility] Comment on above: Performed By: #### C VDTBH #### [facility] [address] [place] [address] Dr. Rich Cutler MONO # 0.5 103/ul Normal 0.3-0.8 [facility] Comment on above: Performed By: #### C VDTBH #### [facility] [address] [place] [address] Dr. Rich Cutler Monocytes/100 WBC (Bld) 6.5 % Normal 1.7-12.0 [facility] Comment on above: Performed By: #### C VDTBH #### [facility] [address] [place] [address] Dr. Rich Cutler NEUT # 4.1 103/ul Normal 1.4-6.5 [facility] Comment on above: Performed By: #### C VDTB #### [facility] [address] [place] [address] Dr. Rich Cutler Neutrophils/100 WBC (Bld) 53.6 % Normal 43.0-75.0 [facility] Comment on above: Performed By: #### C VDTBH #### [facility] [address] [place] [address] Dr. Rich Cutler Platelet mean volume (Bld) [Entitic vol] 10.3 fL Normal 9.5-13.5 [facility] Comment on above: Performed By: #### C VDTBH #### [facility] [address] [place] [address] Dr. Rich Cutler PLT 283 103/ul Normal 150-450 [facility] Comment on above: Performed By: #### C VDTBH #### [facility] [address] [place] [address] Dr. Rich Cutler RBC 4.64 106/ul Normal 4.20-5.40 [facility] Comment on above: Performed By: #### C VDTBH #### [facility] [address] [place] [address] Dr. Rich Cutler WBC 7.6 103/ul Normal 4.0-11.0 [facility] Comment on above: Performed By: #### C VDTBH #### [facility] [address] [place] [address] Dr. Rich Cutler INSULINon 09-24-2022 Insulin 15.1 uIU/mL Normal 2.6-24.9 [facility] Comment on above: Performed By: #### C VDTBH #### [facility] [address] [place] [address] Dr. Rich Cutler PROF 14(COMP METB)on 022 Albumin [Mass/Vol] 3.5 g/dL Normal 3.4-5.0 [facility] Comment on above: Performed By: #### C VDTBH #### [facility] [address] [place] [address] Dr. Rich Cutler Albumin/Globulin [Mass ratio] 1.0 {ratio} Normal [facility] Comment on above: Performed By: #### C VDTBH #### [facility] [address] [place] [address] Dr. Rich Cutler ALP [Catalytic activity/Vol] 91 U/L Normal 46-116 [facility] Comment on above: Performed By: #### C VDTBH #### [facility] [address] [place] [address] Dr. Rich Cutler ALT [Catalytic activity/Vol] 47 U/L Normal 14-59 [facility] Comment on above: Performed By: #### C VDTBH #### [facility] [address] [place] [address] Dr. Rich Cutler Anion gap [Moles/Vol] 11.7 mmol/L Normal [facility] Comment on above: Performed By: #### C VDTBH #### [facility] [address] [place] [address] Dr. Rich Cutler AST [Catalytic activity/Vol] 24 U/L Normal 15-37 [facility] Comment on above: Performed By: #### C VDTBH #### [facility] [address] [address] [address] Rich uCtler Bilirubin [Mass/Vol] 0.2 mg/dL Normal 0.2-1.0 [facility] Comment on above: Performed By: #### C VDTBH #### [facility] [address] [address] [address] Rich Cutler Calcium [Mass/Vol] 8.9 mg/dL Normal 8.5-10.1 [facility] Comment on above: Performed By: #### C VDTBH #### [facility] [address] [address] [address] Rich Cutler Chloride [Moles/Vol] 105 mmol/L Normal 98-107 [facility] Comment on above: Performed By: #### C VDTBH #### [facility] [address] [address] [address] Rich Cutler CO2 [Moles/Vol] 28.1 mmol/L Normal 21.0-32.0 [facility] Comment on above: Performed By: #### C VDTBH #### [facility] [address] [address] [address] Rich Cutler Creatinine [Mass/Vol] 1.13 mg/dL Critically high 0.55-1.02 [facility] Comment on above: Performed By: #### C VDTBH #### [facility] [address] [address] [address] Rich Cutler EGFR-AF ROMANIAN 60 mL/min/1.73m2 Normal >=60 [facility] Comment on above: Performed By: #### C VDTBH #### [facility] [address] [address] [address] Rich Cutler EGFR-NON AF ROMANIAN 49 mL/min/1.73m2 Critically low >=60 [facility] Comment on above: Performed By: #### C VDTBH #### [facility] [address] [address] [address] Rich Cutler Globulin (S) [Mass/Vol] 3.5 g/dL Normal [facility] Comment on above: Performed By: #### C VDTBH #### [facility] [address] [address] [address] Rich Cutler Glucose [Mass/Vol] 119 mg/dL Critically high 74-106 [facility] Comment on above: Performed By: #### C VDTBH #### [facility] [address] [address] [address] Rich Cutler Potassium [Moles/Vol] 3.8 mmol/L Normal 3.5-5.1 [facility] Comment on above: Performed By: #### C VDTBH #### [facility] [address] [address] [address] Rich Cutler Protein [Mass/Vol] 7.0 g/dL Normal 6.4-8.2 [facility] Comment on above: Performed By: #### C VDTBH #### [facility] [address] [place] [address] Dr. Rich Cutler Sodium [Moles/Vol] 141 mmol/L Normal 136-145 [facility] Comment on above: Performed By: #### C VDTBH #### [facility] [address] [address] [address] Rich Cutler Urea nitrogen [Mass/Vol] 16.0 mg/dL Normal 7.0-18.0 [facility] Comment on above: Performed By: #### C VDTBH #### [facility] [address] [place] [address] Dr. Rich Cutler Urea nitrogen/Creatinine [Mass ratio] 14.2 mg/mg Normal [facility] Comment on above: Performed By: #### C VDTBH #### [facility] [address] [place] [address] Dr. Rich Cutler TROPONIN, HIGH SENSITIVITYon 09-24-2022 HSTROP 10.6 pg/mL Normal 4.0-51.3 [facility] Comment on above: Result Comment: CUT- OFF POINTS HAVE BEEN ESTABLISHED BASED ON THE FOURTH UNIVERSAL DEFINITIONS OF MYOCARDIAL INFARCTION. THE UPPER REFERENCE LIMIT (URL) OF TROPONIN, DEFINED THE 99TH PERCENTILE OF cTnI DISTRIBUTION IN A REFERENCE POPULATION, HAS BEEN CONFIRMED THE DECISION THRESHOLD FOR NE DIAGNOSIS. Performed By: #### C VDTB #### [facility] [address] [place] [address] Dr. Rich Cutler XR CHEST 1 Von [...] UMM HUMPHRIES Date: 2022-09-24 04:08 Normal [facility] CBC AUTO DIFFon 09-23-2022 BASO # 0.1 103/ul Normal 0.0-0.1 [facility] Comment on above: Performed By: #### C BC #### [facility] [address] [place] [address] Dr. Rich Cutler Basophils/100 WBC (Bld) 0.8 % Normal 0.2-2.0 [facility] Comment on above: Performed By: #### C BC #### [facility] [address] [place] [address] Dr. Rich Cutler EO # 0.2 103/ul Normal 0.0-0.7 [facility] Comment on above: Performed By: #### C BC #### [facility] [address] [place] [address] Dr. Rich Cutler Eosinophils/100 WBC (Bld) 3.5 % Normal 0.9-7.0 [facility] Comment on above: Performed By: #### C BC #### [facility] [address] [place] [address] Dr. Rich Cutler Erythrocyte distribution width (RBC) [Ratio] 13.4 % Normal 11.0-15.0 [facility] Comment on above: Performed By: #### C BC #### [facility] [address] [place] [address] Dr. Rich Cutler Hematocrit (Bld) [Volume fraction] 42.3 % Normal 36.0-48.0 [facility] Comment on above: Performed By: #### C BC #### [facility] [address] [place] [address] Dr. Rich Cutler Hemoglobin (Bld) [Mass/Vol] 13.4 g/dL Normal 12.0-16.0 [facility] Comment on above: Performed By: #### C BC #### [facility] [address] [place] [address] Dr. Rich Cutler IG # 0.03 10e3/ul Normal 0.00-0.03 [facility] Comment on above: Performed By: #### C BC #### [facility] [address] [place] [address] Dr. Rich Cutler IG % 0.5 % Normal 0.0-0.5 [facility] Comment on above: Performed By: #### C BC #### [facility] [address] [place] [address] Dr. Rich Cutler LYMPH # 2.9 103/ul Normal 1.2-3.8 [facility] Comment on above: Performed By: #### C BC #### [facility] [address] [place] [address] Dr. Rich Cutler Lymphocytes/100 WBC (Bld) 44.0 % Normal 20.5-60.0 [facility] Comment on above: Performed By: #### C BC #### [facility] [address] [place] [address] Dr. Rich Cutler MANUAL DIFF REQ NO Normal [facility] Comment on above: Performed By: #### C BC #### [facility] [address] [place] [address] Dr. Rich Cutler MCH (RBC) [Entitic mass] 28.4 pg Normal 26.7-34.0 [facility] Comment on above: Performed By: #### C BC #### [facility] [address] [place] [address] Dr. Rich Cutler MCHC (RBC) [Mass/Vol] 31.7 g/dL Normal 29.9-35.2 [facility] Comment on above: Performed By: #### C BC #### [facility] [address] [place] [address] Dr. Rich Cutler MCV (RBC) [Entitic vol] 89.6 fL Normal 81.0-99.0 [facility] Comment on above: Performed By: #### C BC #### [facility] [address] [place] [address] Dr. Rich Cutler MONO # 0.4 103/ul Normal 0.3-0.8 [facility] Comment on above: Performed By: #### C BC #### [facility] [address] [place] [address] Dr. Rich Cutler Monocytes/100 WBC (Bld) 6.6 % Normal 1.7-12.0 [facility] Comment on above: Performed By: #### C BC #### [facility] [address] [place] [address] Dr. Rich Cutler NEUT # 2.9 103/ul Normal 1.4-6.5 [facility] Comment on above: Performed By: #### C BC #### [facility] [address] [place] [address] Dr. Rich Cutler Neutrophils/100 WBC (Bld) 44.6 % Normal 43.0-75.0 [facility] Comment on above: Performed By: #### C BC #### [facility] [address] [place] [address] Dr. Rich Cutler Platelet mean volume (Bld) [Entitic vol] 11.0 fL Normal 9.5-13.5 [facility] Comment on above: Performed By: #### C BC #### [facility] [address] [place] [address] Dr. Rich Cutler PLT 272 103/ul Normal 150-450 [facility] Comment on above: Performed By: #### C BC #### [facility] [address] [place] [address] Dr. Rich Cutler RBC 4.72 106/ul Normal 4.20-5.40 [facility] Comment on above: Performed By: #### C BC #### [facility] [address] [place] [address] Dr. Rich Cutler WBC 6.5 103/ul Normal 4.0-11.0 [facility] Comment on above: Performed By: #### C BC #### [facility] [address] [place] [address] Dr. Rich Cutler FREE THYROXINE INDEX T7on FTI 2.16 Normal 1.30-4.50 [facility] Comment on above: Performed By: #### L IPID, TSH, T7, CMP #### [facility] [address] [place] [address] Dr. Rich Cutler T3U 30.0 % Normal 30.0-39.0 [facility] Comment on above: Performed By: #### L IPID, TSH, T7, CMP #### [facility] [address] [place] [address] Dr. Rich Cutler T4 [Mass/Vol] 7.20 ug/dL Normal 4.80-13.90 [facility] Comment on above: Performed By: #### L IPID, TSH, T7, CMP #### [facility] [address] [place] [address] Dr. Rich Cutler GLYCOHEMOGLOBIN A1Con 2021 ADA RECOMMENDATION SEE BELOW Normal [facility] Comment on above: Result Comment: ADA RECOMMENDED LIMIT 4.0 - 6.0 ADA THERAPEUTIC TARGET < 7.0 ACTION SUGGESTED > 7.0 Performed By: #### A 1C #### [facility] [address] [place] [address] Dr. Rich Cutler Glucose [Mass/Vol] 128 mg/dL Normal [facility] Comment on above: Performed By: #### A 1C #### [facility] [address] [place] [address] Dr. Rich Cutler HbA1c (Bld) [Mass fraction] 6.1 % Normal 4.5-6.2 [facility] Comment on above: Performed By: #### A 1C #### [facility] [address] [address] [address] Rich Cutler IRONon 09-23-2022 Iron [Mass/Vol] 64.0 ug/dL Normal 50.0-170.0 [facility] Comment on above: Performed By: #### C VDTBH #### [facility] [address] [address] [address] Rich Cutler LIPID PROFILEon 09-23-2022 CHOL-HDL RATIO NORM SEE BELOW Normal [facility] Comment on above: Result Comment: 3.3 - 4.4 LOW RISK 4.4 - 7.1 AVERAGE RISK 7.1 - 11.0 MODERATE RISK >11.0 HIGH RISK Performed By: #### L IPID, TSH, T7, CMP #### [facility] [address] [address] [address] Rich Cutler Cholesterol [Mass/Vol] 237 mg/dL Critically high <=200 [facility] Comment on above: Performed By: #### L IPID, TSH, T7, CMP #### [facility] [address] [address] [address] Rich Cutler Cholesterol in HDL [Mass/Vol] 44 mg/dL Normal 40-60 [facility] Comment on above: Performed By: #### L IPID, TSH, T7, CMP #### [facility] [address] [address] [address] Rich Cutler Cholesterol in LDL [Mass/Vol] 172.2 mg/dL Normal [facility] Comment on above: Performed By: #### L IPID, TSH, T7, CMP #### [facility] [address] [address] [address] Rich Cutler Cholesterol.total/Ch olesterol in HDL [Mass ratio] 5.4 {ratio} Normal [facility] Comment on above: Performed By: #### L IPID, TSH, T7, CMP #### [facility] [address] [address] [address] Rich Cutler HDL NORMAL > or = 60 mg/dl - LO W CARDIOVASCULAR RISK <40 mg/dl - HIGH CARDIOVASCULAR RISK Normal [facility] Comment on above: Performed By: #### L IPID, TSH, T7, CMP #### [facility] [address] [address] [address] Rich Cutler LDL CALC NORMAL SEE BELOW Normal [facility] Comment on above: Result Comment: <100 mg/dl OPTIMAL 100 - 129 mg/dl NEAR OR ABOVE OPTIMAL 130 - 159 mg/dl BORDERLINE HIGH 160 - 189 mg/dl HIGH >190 mg/dl VERY HIGH Performed By: #### L IPID, TSH, T7, CMP #### [facility] [address] [address] [address] Rich Cutler Triglyceride [Mass/Vol] 104 mg/dL Normal <=150 [facility] Comment on above: Performed By: #### L IPID, TSH, T7, CMP #### [facility] [address] [address] [address] Rich Cutler VLDL CALC 20.8 mg/dL Normal [facility] Comment on above: Performed By: #### L IPID, TSH, T7, CMP #### [facility] [address] [address] [address] Rich Cutler PROF 14(COMP METB)on 022 Albumin [Mass/Vol] 3.5 g/dL Normal 3.4-5.0 [facility] Comment on above: Performed By: #### L IPID, TSH, T7, CMP #### [facility] [address] [address] [address] Rich Cutler Albumin/Globulin [Mass ratio] 0.9 {ratio} Normal [facility] Comment on above: Performed By: #### L IPID, TSH, T7, CMP #### [facility] [address] [address] [address] Rich Cutler ALP [Catalytic activity/Vol] 93 U/L Normal 46-116 [facility] Comment on above: Performed By: #### L IPID, TSH, T7, CMP #### [facility] [address] [address] [address] Rich Cutler ALT [Catalytic activity/Vol] 44 U/L Normal 14-59 [facility] Comment on above: Performed By: #### L IPID, TSH, T7, CMP #### [facility] [address] [address] [address] Rich Cutler Anion gap [Moles/Vol] 8.5 mmol/L Normal [facility] Comment on above: Performed By: #### L IPID, TSH, T7, CMP #### [facility] [address] [place] [address] Dr. Rich Cutler AST [Catalytic activity/Vol] 26 U/L Normal 15-37 [facility] Comment on above: Performed By: #### L IPID, TSH, T7, CMP #### [facility] [address] [place] [address] Dr. Rich Cutler Bilirubin [Mass/Vol] 0.3 mg/dL Normal 0.2-1.0 [facility] Comment on above: Performed By: #### L IPID, TSH, T7, CMP #### [facility] [address] [place] [address] Dr. Rich Cutler Calcium [Mass/Vol] 9.0 mg/dL Normal 8.5-10.1 [facility] Comment on above: Performed By: #### L IPID, TSH, T7, CMP #### [facility] [address] [place] [address] Dr. Rich Cutler Chloride [Moles/Vol] 106 mmol/L Normal 98-107 [facility] Comment on above: Performed By: #### L IPID, TSH, T7, CMP #### [facility] [address] [place] [address] Dr. Rich Cutler CO2 [Moles/Vol] 31.0 mmol/L Normal 21.0-32.0 [facility] Comment on above: Performed By: #### L IPID, TSH, T7, CMP #### [facility] [address] [place] [address] Dr. Rich Cutler Creatinine [Mass/Vol] 1.11 mg/dL Critically high 0.55-1.02 [facility] Comment on above: Performed By: #### L IPID, TSH, T7, CMP #### [facility] [address] [address] [address] Rich Cutler EGFR-AF ROMANIAN >60 Normal >=60 [facility] Comment on above: Performed By: #### L IPID, TSH, T7, CMP #### [facility] [address] [address] [address] Rich Cutler EGFR-NON AF ROMANIAN 50 mL/min/1.73m2 Critically low >=60 [facility] Comment on above: Performed By: #### L IPID, TSH, T7, CMP #### [facility] [address] [address] [address] Rich Cutler Globulin (S) [Mass/Vol] 3.7 g/dL Normal [facility] Comment on above: Performed By: #### L IPID, TSH, T7, CMP #### [facility] [address] [place] [address] Dr. Rich Cutler Glucose [Mass/Vol] 121 mg/dL Critically high 74-106 [facility] Comment on above: Performed By: #### L IPID, TSH, T7, CMP #### [facility] [address] [address] [address] Rich Cutler Potassium [Moles/Vol] 4.5 mmol/L Normal 3.5-5.1 [facility] Comment on above: Performed By: #### L IPID, TSH, T7, CMP #### [facility] [address] [address] [address] Rich Cutler Protein [Mass/Vol] 7.2 g/dL Normal 6.4-8.2 [facility] Comment on above: Performed By: #### L IPID, TSH, T7, CMP #### [facility] [address] [address] [address] Rich Cutler Sodium [Moles/Vol] 141 mmol/L Normal 136-145 [facility] Comment on above: Performed By: #### L IPID, TSH, T7, CMP #### [facility] [address] [address] [address] Rich Cutler Urea nitrogen [Mass/Vol] 16.0 mg/dL Normal 7.0-18.0 [facility] Comment on above: Performed By: #### L IPID, TSH, T7, CMP #### [facility] [address] [address] [address] Rich Cutler Urea nitrogen/Creatinine [Mass ratio] 14.4 mg/mg Normal [facility] Comment on above: Performed By: #### L IPID, TSH, T7, CMP #### [facility] [address] [address] [address] Rich Cutler TSHon 09-23-2022 TSH 3.915 uIU/mL Critically high 0.358-3.740 [facility] Comment on above: Performed By: #### L IPID, TSH, T7, CMP #### [facility] [address] [address] [address] Rich Cutler Physician Referralon 022 Physician Referral [phone] [id number] Normal [facility] Lipid Panelon 10-07-2021 Cholesterol [Mass/Vol] 205 mg/dL High 140-200 [facility] Comment on above: Result Comment: Chol less than 200 mg/dl low risk Chol 201-239 mg/dl borderline risk Chol 240 mg/dl and greater high risk Performed By: #### L IPID, [id number], TSH3 wRFLX #### [facility] [address] [id number] [place] Cholesterol in HDL [Mass/Vol] 25 mg/dL Low 35-85 [facility] Comment on above: Result Comment: HDL CHOL ATP-III CLASSIFICATION Cardiovascular Risk HDL > or equal to 60 mg/dL LOW HDL < 40 mg/dL HIGH Performed By: #### L IPID, [id number], TSH3 wRFLX #### [facility] [address] [id number] [place] Cholesterol.total/Ch olesterol in HDL [Mass ratio] 8.2 {ratio} Normal <5.0 [facility] Comment on above: Performed By: #### L IPID, [id number], TSH3 wRFLX #### [facility] [address] LDL Cholesterol,Calculat ed 160 mg/dL High 0-100 [facility] Comment on above: Result Comment: LDL ATP III CLASSIFICATION LDL less than 100 mg/dL Optimal LDL 100-129 mg/dL Near or above optimal LDL 130-159 mg/dL Borderline high LDL 160-189 mg/dL High LDL greater than 189 mg/dL Very high Performed By: #### L IPID, [id number], TSH3 wRFLX #### [facility] [address] Triglyceride w/Reflex 100 mg/dL Normal 35-149 [facility] Comment on above: Result Comment: TRIG ATP III CLASSIFICATION TRIG less than 150 mg/dL Normal TRIG 150-199 mg/dL Borderline high TRIG 200-500 mg/dL High TRIG greater than 500 mg/dL Very high Standard traceable to the Center for Disease Conrtrol and Prevention (CDC) test method. Performed By: #### L IPID, [id number], TSH3 wRFLX #### [facility] [address] [place] [address] VLDL CHOLESTEROL 20 mg/dL Normal [facility] Comment on above: Performed By: #### L IPID, [id number], TSH3 wRFLX #### [facility] [address] [place] [address] Thyroid Stim Hormone w/Rflxo n 10-07-2021 Thyroid Stim Hormone w/Rflx 3.27 u[iU]/mL Normal 0.45-5.33 [facility] Comment on above: Performed By: #### L IPID, [id number], TSH3 wRFLX #### [facility] [address] [place] [address] Vitamin D 25 Hydroxy Totalon 10-07-2021 Vitamin D 25 Hydroxy Total 26.5 ng/mL Low 30-100 [facility] Comment on above: Result Comment: JACKELINE MIN D STATUS 25(OH)VITAMIN D RANGE (ng/mL) Deficient <20 Insufficient 20 to <30 Sufficient 30 to 100 Reference: Lanny MF,Gino NC, Dyan VALENZUELA, et al. Evaluation,treatment, and prevention of vitamin D deficiency; an Endocrine Society clinical practice guideline. JCEM. 2011 May; 96(7):1911-30. PERFORMED BY: [facility] [address] [place] [address] PATHOLOGIST [employer]AM GUN OPERATOR SILVESTRE SCHULER M.D. Performed By: #### L IPID, [id number], TSH3 wRFLX #### [facility] [address] [id number] [facility] Vital Signs Date Time Vital Sign Value Performing Clinician Faci lity 10-06-2022 15:36-0500 Blood Pressure Location Umm MARTÍNEZ [facility] [place] 10-06-2022 15:36-0500 Diastolic blood pressure 86 mm[Hg] Umm JACQUESL [facility] 10-06-2022 15:36-0500 Heart rate 72 /min Umm NILL [facility] 10-06-2022 15:36-0500 Respiratory rate 16 /min Umm NILL [facility] 10-06-2022 15:36-0500 Systolic blood pressure 126 mm[Hg] Umm NILL [facility] Encounters Encounter Date Encounter Type Care Provider Facility Start: 06-21-2024 End: 06-21-2024 ambulatory [facility] Start: 05-26-2024 End: 05-26-2024 ambulatory [facility] Start: 11-26-2022 Encounter for preprocedural laboratory examination DR UMM MARTÍNEZ . [facility] Start: 11-25-2022 End: 11-26-2022 ambulatory Umm MARTÍNEZ Facility:[id number] Start: 11-20-2022 End: 11-21-[address] UMM MARTÍNEZ . Facility: Start: 11-20-2022 End: 11-21-2022 Encounter for preprocedural laboratory examination DR UMM MARTÍNEZ . Facility:[facility] Start: 10-06-2022 End: 10-07-2022 ambulatory Umm R NILL Facility:[facility] Start: 10-06-2022 End: 10-06-2022 Patient encounter procedure Umm Michael NILL [facility] [place] Start: 10-02-2022 End: 10-03-[address] KENDRA MURILLO . Facility:[facility] Start: 09-30-2022 End: 10-01-[address] KENDRA MURILLO . Facility:[facility] Start: 09-28-2022 Encounter for genera l adult medical examination without abnormal findings DR KENDRA MURILLO . [facility] Start: 09-24-2022 End: 09-24-2022 ambulatory [...] Immunization Date Immunization Notes Care Provider Fa [facility] 04-14-2021 SARS-CoV-2 (COVID-19 ) mRNA [id number] vax Umm NILL [facility] [place] 03-11-2021 SARS-CoV-2 (COVID-19 ) mRNA BNT-162b2 vax Umm NILL [facility] [place] Payers Date Payer Category Payer Medicaid [id number] 1965 Unknown [id number] 2.16.8 [id number] 1965 Unknown [id number] 2.16.8 [id number] 1965 Unknown [id number] 2.16.84 [id number] 1965 Unknown [id number] 2.16.84 [id number] 1965 Unknown [id number] 2.16.84 [id number] 1965 Unknown [id number] 2.16.84 [id number] 1965 Unknown [id number] 2.16.84 [id number] 1965 Unknown [id number] 2.16.84 [id number] 1965 Unknown [id number] 2.16.84 [id number] 1960 Self-pay [id number] 1960 Unknown [id number] Social History Date Type Detail Facility Start: 10-06-2022 Tobacco smoking status Ex-smoker (fi nding) [facility] [place] Tobacco smoking status Never [facility] [place] Sex Assigned At Female [facility] Functional Status Date Assessment Result Facility 10-06-2022 Functional Status N/A [facility] Progress note 06-21-2024 Note Date & Type Note Facility 06-21-2024 Note [facility] Ceasar Madrigal is a 59 y.o. year old female patient being seen for follow up [facility] ED per Dr. Murillo. She has [...] attack) QURESHI (dyspnea on exertion) Atherosclerosis of [place] coronary artery of [place] heart without angina pectoris Hyperlipidemia Murmur, heart [...] Judgment: Judgment no (more content not included)... [facility] Progress note 05-26-2024 Note Date & Type [...] PSYCH: appropriate mood, (more content not included)... [facility] Clinical Note 11-25-2022 Note Date & Type [...] 10 years. CC: Kendra Murillo M.D. [facility] Clinical Note 10-11-2022 Note [...] 1 tab(s), Oral, (more content not included)... [facility] Comment on above: Result Comment: Elec tronically Signed By: DIPESH BUCKNER, Umm Hogan\Date and Time Signed: 10/11/22 11:01 EST Evaluation + Plan note Note Date & Type Note Facility Evaluation + Plan note No data available for this section [facility] [place] [facility] Discharge instructions Note Date & Type Note Facility Hospital Discharge instructions No data available for this section [facility] [place] Progress note Note Date & Type Note Facility Progress note No data available for this section [facility] [place] Summary Purpose Family History No Family History Records FoundNo Family History Records FoundNo Family History Records FoundNo Family History Records Found Advance Directives No Advanced Directives Records FoundNo Advanced Directives Records FoundNo Advanced Directives Records FoundNo Advanced Directives Records Found Additional Source Comments INFORMATION SOURCE (unrecogn ized section and content) DATE CREATED AUTHOR 12/17/2021 [facility] DATE CREATED AUTHOR AUTHOR'S ORGANIZ ATION 12/16/2022 [facility] DATE CREATED AUTHOR AUTHOR'S ORGANIZ ATION 03/26/2023 [facility] DATE CREATED AUTHOR AUTHOR'S ORGANIZ ATION 06/23/2024 [facility] Patient Care team informatio n (unrecognized section and content) Personnel Name: Kendra Murillo MD Address: Address: [address] [place] [address] Personnel Name: Kendra Murillo MD Address: Address: [address] [place] [address] FOR RECORDS PERTAINING TO PATIENTS WHO ARE [...] BE BASED ON THE PRIMARY CLINICAL RECORDS. [facility] [employer] [facility]. provides no warranty or guarantee of the accuracy or completeness of information in this document.
[2024-06-29] MEDS: CLONIDINE HCL 0.1 MG TABLET PO ×2 (05:18→18:02)
[2024-06-29] MEDS: METOPROLOL TARTRATE 100 MG TABLET PO ×2 (05:19→20:42)
[2024-06-29] MEDS: POTASSIUM CHLORIDE 10 MEQ ER TABLET 40 MEQ PO (05:19)
[2024-06-29 06:02] LABS: Troponin I High Sensitivity 8.7 pg/mL (4.0-51.3)
[2024-06-29] MEDS: HYDRALAZINE HCL 20 MG/ML VIAL 10 MG IVP ×2 (07:20→17:07)
[2024-06-29 07:23] LABS: Magnesium 1.7 mg/dL (1.8-2.4)
--- NOTE | 2024-06-29 07:44 | US_ITS ---
The [address] [address] Patient Name: MILAN RASMUSSEN MRN: [id number] date: 1965 Sex: F Assigned Patient Location: Current Patient Location: Accession/Order Number: [id number] Exam Date: 06/29/2024 08:20 Report Date: 06/29/2024 10:29 At the request of: KENDRA MORAN Procedure: US renal doppler Ultrasound kidneys, bilateral, with renal Doppler CLINICAL: Uncontrolled hypertension for 3 months, chest pain TECHNIQUE: Transabdominal ultrasound marin-scale imaging of both kidneys was performed with Doppler, waveform analysis and peak systolic velocity measurements of the renal arteries. FINDINGS: Comparison: None. Both kidneys demonstrate normal echotexture and echogenicity. The right kidney measures 14.4 x 5.5 x 5.0 cm. There is no hydronephrosis of right kidney. The left kidney measures 9.9 x 4.2 x 4.5 cm. With cortical lobulation and scarring No hydronephrosis of left kidney. The bladder is moderately distended with prevoid volume of 195 cc, grossly normal. The abdominal aorta measures 99 cm/sec. The proximal, mid and distal portions of the right renal artery measure peak systolic velocities of 94 cm/sec, 225 cm/sec, and 283 cm/sec, respectively. This results in renal artery to aortic ratios of 0.94, 2.27, and 2.86, respectively. The peak systolic velocities of the renal arteries and renal to aortic ratios are elevated. The proximal, mid and distal portions of the left renal artery measure peak systolic velocities of 343 cm/sec, 274 cm/sec, and 214 cm/sec, respectively. This results in renal artery to aortic ratios of 3.46, 2.77, and 2.16, respectively. The peak systolic velocities of the renal arteries and renal to aortic ratios are elevated. There is increased echogenicity of the visualized liver. US/US renal doppler IMPRESSION: 1. Elevated velocities of both renal arteries reflecting hemodynamically significant renal artery stenosis bilaterally. Suspected < 60% diameter reduction of right renal artery and > 60% diameter reduction of left renal artery. 2. Lobulated cortical scarring of left kidney. No hydronephrosis on either side. 3. Fatty infiltration of the liver. Reference: J Ultrasound. 2009 Dec: 12(4): 133-143. Based on classification of RA stenosis by color-Doppler US from [place] and [place] (Am J Hypertens, 1996). Normal renal artery diameter: RA PSV < 180 cm/sec, RAR < 3.5 < 60% diameter reduction: RA PSV > 180 cm/sec, RAR < 3.5 > 60% diameter reduction: RA PSV > 180 cm/sec, RAR > 3.5 Occlusion: No PSV signal, RAR indeterminate RI > 0.33 - normal; RI 0.23 - borderline; <0.23 increased resistance within kidney Electronically authenticated by: JAZMYN STONER Date: 06/29/2024 10:29
--- NOTE | 2024-06-29 07:44 | CA_ITS ---
Patient Name: MILAN RASMUSSEN MR#: [id number] : 1965 Exam Date: 06/29/2024 Ordering Doctor: DR Carlito Murillo . ECHOCARDIOGRAM REPORT PROCEDURE: CA ECHO DOPPLER COMPLETE INDICATIONS: hypertensive urgency, cp COMPARISON: None. DESCRIPTION: COMPLETE ECHOCARDIOGRAM Real-time transthoracic echocardiography with 2D, M-mode, spectral and color flow Doppler performed. QUALITY: Technical quality was good. LEFT VENTRICLE: Normal chamber size. Moderate concentric left ventricular hypertrophy. Significantly thickened septum (1.6 cm). Left ventricular obstruction, mild-moderate measuring at 27 mmHg with Valsalva, likely related to hyperdynamic systolic function LV EF: Hyperdynamic left ventricular ejection fraction, (75-80%). DIASTOLIC: Grade I diastolic dysfunction. ATRIAL SEPTUM: LEFT ATRIUM: Normal chamber size. RIGHT ATRIUM: Normal chamber size. RIGHT VENTRICLE: Normal chamber size. Normal right ventricular systolic function. TRICUSPID VALVE : Normal mobility and thickness. No stenosis with trivial regurgitation. Doppler studies reveal mildly (35-45) elevated right sided pressures. RVSP 40 mmHg MITRAL VALVE: Normal mobility and thickness. No evidence of mitral valve stenosis. There is no mitral annular calcification. No mitral regurgitation. AORTIC VALVE: Normal trileaflet appearance. No visible sclerosis. Normal leaflet mobility. No evidence of aortic valve stenosis. No aortic regurgitation. AORTIC ROOT: Normal diameter and appearance. PULMONIC VALVE: Normal thickness and mobility. No stenosis. Trivial regurgitation. PERICARDIUM: Trivial pericardial effusion. IVC: Collapses with inspirations. PLEURA: CONCLUSION: 1. Moderate concentric left ventricular hypertrophy with significantly thickened septal measuring 1.6 cm. Hyperdynamic left ventricular systolic function with likely mid cavitary acceleration of flow and systolic gradient of 27 mmHg with Valsalva maneuver. 2. Normal right ventricular size and systolic function. 3. Mild diastolic dysfunction. 4. No significant valvular dysfunction. 5. Mildly elevated right-sided pressures. 6. Depending on the clinical picture, further imaging with cardiac MRI might be helpful to further characterize the cardiac phenotype. Adult Echocardiography Procedure Report Left Ventricle LVEDD (3.7 - 5.6 cm): 4.10 cm LVESD (2.2 - 4.0 cm): 2.15 cm LVIVS thickness (0.6 - 1.2 cm): 1.58 cm LVPW thickness (0.5 - 1.0 cm): 1.25 cm e': 0.06 m/s E - e': 7.78 LVOT Max Gradient: 3.82 mm[Hg] LVOT Area (cm2): 0.98 m/s Peak Velocity (LVOT): 0.98 m/s Mean Velocity (LVOT): 0.59 m/s LVOT Diameter 2.43 cm Left Atrium Left Atrium Systolic Dimension: 4.08 cm Mitral Valve MV E to A Ratio: 0.53 Mitral Valve A-Wave Peak Velocity: 0.85 m/s Mitral Valve E-Wave Peak Velocity: 0.45 m/s Right Ventricle Aorta AO Root Diam: 2.98 cm Aortic Valve AoV Area (Peak David): 2.59 cm2, 2.59 cm2 AoV Area (VTI): 3.00 cm2, 3.00 cm2 Peak Velocity(Antegrade Flow): 1.75 m/s Peak Gradient(Antegrade Flow): 12.29 mm[Hg] Mean Velocity(Antegrade Flow): 0.90 m/s Mean Gradient(Antegrade Flow): 4.71 mm[Hg] Velocity Time Integral: 39.80 cm Tricuspid Valve Peak Velocity (Regurgitant Flow): 2.93 m/s, 3.02 m/s Pulmonic Valve Mean Gradient: 4.58 mm[Hg] Mean Velocity: 1.00 m/s Peak Velocity: 1.46 m/s, 1.32 m/s Peak Gradient: 6.98 mm[Hg], 8.53 mm[Hg] Right Atrium Dictated by: Rafa Spence M.D. on 06/29/2024 at 13:42 Approved by: Rafa Spence M.D. on 06/29/2024 at 13:46
[2024-06-29 07:49] LABS: Glucometer 112 mg/dL (74-106)
[2024-06-29] MEDS: ACETAMINOPHEN 500 MG TABLET 1000 MG PO ×2 (08:03→17:37)
--- NOTE | 2024-06-29 08:06 | ECG_ITS ---
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
--- NOTE | 2024-06-29 08:11 | P.HP_ITS ---
HPI H&P: HPI History of Present Illness Chief complaint: chest pain CP UNCONTROLLED HTN Narrative: Patient had episode of chest pain and presented to the emergency room. Significant blood pressure is over 220 for the systolic. Patient was admitted for hypertensive urgency and chest pain. I saw patient up on the medical surgical floor, she was resting comfortably in bed. Denied chest pain or shortness of breath. Patient has not been up and ambulating yet though. She has been having extensive workup from a cardiovascular standpoint. Stress test completed. With this episode of chest pain she needs an echocardiogram. Opioid HPI Opioid Management Most Recent Pain and Opioid Data: Last Pain Scale 8 06/29/24 08:03 Last Pain Assessment 06/29/24 07:00 Last ED Pain Assessment 06/29/24 02:46 Last MAR Pain Assessment 06/29/24 08:03 Last ORT Total Score 0 06/29/24 04:50 Last ORT Risk Category Low Risk 06/29/24 04:50 PFSH PFSH Medical History (Updated 06/29/24 @ 08:55 by Carlito Murillo MD) Shortness of breath ?R06.02 - Shortness of breath (ICD-10) Headache ?R51.9 - Headache, unspecified (ICD-10) Elevated d-dimer ?R79.89 - Other specified abnormal findings of blood chemistry (ICD-10) Hypertensive emergency ?I16.1 - Hypertensive emergency (ICD-10) Uncontrolled hypertension ?I10 - Essential (primary) hypertension (ICD-10) Irritable bowel syndrome ?K58.9 - Irritable bowel syndrome without diarrhea (ICD-10) H/O nephrolithotomy with removal of calculi ?Z98.890 - Other specified postprocedural states (ICD-10) ?Z87.442 - Personal history of urinary calculi (ICD-10) Kidney stone ?N20.0 - Calculus of kidney (ICD-10) Sepsis ?A41.9 - Sepsis, unspecified organism (ICD-10) H/O angiography ?Z92.89 - Personal history of other medical treatment (ICD-10) Lung nodule ?R91.1 - Solitary pulmonary nodule (ICD-10) Anxiety ?F41.9 - Anxiety disorder, unspecified (ICD-10) HTN (hypertension) ?I10 - Essential (primary) hypertension (ICD-10) Diabetes ?E11.9 - Type 2 diabetes mellitus without complications (ICD-10) TIA (transient ischemic attack) ?G45.9 - Transient cerebral ischemic attack, unspecified (ICD-10) Surgical History (Updated 04/22/24 @ 01:20 by Stalin Kevin) History of appendectomy ?Z90.49 - Acquired absence of other specified parts of digestive tract (ICD- 10) H/O tubal ligation ?Z98.51 - Tubal ligation status (ICD-10) History of cholecystectomy ?Z90.49 - Acquired absence of other specified parts of digestive tract (ICD- 10) Family History (Updated 04/22/24 @ 01:15 by Stalin Kevin) Mother Family history of cancer Father MVA (motor vehicle accident) Brother Family history of stroke Social History (Updated 04/22/24 @ 01:26 by Stalin Kevin) Within the past year, how often did you have a drink containing alcohol: never Within the past year, how often did you have six or more drinks on one occasion: never Score interpretation: A score less than 3 is consistent with normal alcohol consumption. Smoking status: Former smoker Second hand tobacco smoke exposure: No Non-prescribed substance use: denies use Previous occupational history: no Known occupational exposures/hazards: No Highest level of school completed/degree received: high school graduate Do you want help with school or training: No Are you now , , , , never or living with a partner: In a typical week, how many times do you talk on the telephone with family, friends, or neighbors: 3 or more times per week How often do you get together with friends or relatives: 3 or more times per week How often do you attend moravian or jewish services: never Do you belong to any clubs or organizations such as moravian groups unions, fraternal or athletic groups, or school groups: no Total score: 1 Score interpretation: A score of less than or equal to 1 indicates the most socially isolated. Little interest or pleasure in doing things: not at all Feeling down, depressed, or hopeless: not at all Feel stressed/tense/nervous/anxious/difficulty sleeping: not at all Gender Identity: female Meds Home Medications and Allergies Home Medications ?Medication ?Instructions ?Recorded ?Confirmed ?Type metoprolol tartrate 100 mg tablet 100 mg PO Q12H 08/13/23 06/29/24 History metformin 500 mg tablet 500 mg PO BID 05/31/24 08/08/24 History aspirin 81 mg capsule 81 mg PO DAILY 04/22/24 06/29/24 History furosemide 20 mg tablet (Lasix) 20 mg PO DAILY 04/22/24 06/29/24 History clonidine HCl 0.1 mg tablet 0.1 mg PO Q12H 06/13/24 06/29/24 History isosorbide mononitrate 60 mg 60 mg PO QD #30 tabs 06/29/24 Rx tablet,extended release 24 hr lorazepam 0.5 mg tablet (Ativan) 0.5 mg PO Q8H PRN anxiety 20 days 06/29/24 Rx #60 tabs losartan 50 mg tablet 50 mg PO DAILY 06/29/24 06/29/24 History quetiapine 25 mg tablet 50 mg PO BEDTIME 06/29/24 06/29/24 History Allergies Allergy/AdvReac Type Severity Reaction Status Date / Time amlodipine Allergy Mild Headache Verified 06/29/24 02:16 alprazolam [From Xanax] AdvReac Severe Watery Eye Verified 06/29/24 02:16 Exam Constitutional Vital Signs, click to edit/add: Last Vital Signs Temp 97.5 F L 06/29/24 08:00 Pulse 89 06/29/24 08:00 Resp 18 06/29/24 08:00 BP 147/70 H 06/29/24 08:00 Pulse Ox 94 L 06/29/24 08:00 O2 Del Method Room Air 06/29/24 04:56 Documenting provider has reviewed patient's vital signs: yes Common normals: no apparent distress [facility] Common normals: normocephalic Chest Common normals: inspection of chest normal Respiratory Common normals: normal respiratory effort and no retractions Cardio Common normals: regular rate, regular rhythm and no murmurs GI Common normals: Normal to inspection, nondistended, normoactive bowel sounds present Extremity Common normals: normal to inspection Neuro Common normals: oriented x3 and CN's II-XII intact bilaterally Results Labs Labs: Short CBC 06/29/24 Range/Units 02:30 WBC 7.1 (4.0-11.0) 10^3/uL Hgb 13.3 (12.0-16.0) g/dL Hct 40.3 (36.0-48.0) % Plt Count 251 (150-450) 10^3/uL BMP 06/29/24 02:30 Sodium 142 Potassium 3.2 L Chloride 106 Carbon Dioxide 28.4 BUN 15.0 Creatinine 1.04 H Glucose 140 H Calcium 8.7 Liver Function 06/29/24 Range/Units 02:30 Total Bilirubin 0.3 (0.2-1.0) mg/dL AST 22 (15-37) U/L ALT 60 H (14-59) U/L Alkaline Phosphatase 99 (46-116) U/L Albumin 3.3 L (3.4-5.0) g/dL Assessment and Plan Assessment and Plan (1) Hypokalemia: (2) Hypertension, uncontrolled: (3) Chest pain: Plan Admission findings: Uncontrolled hypertension leading to hypertensive urgency with chest pain. Blood pressure better this morning. Added Imdur. Checking echocardiogram and renal artery ultrasounds. If those testing are normal blood pressures improved no further chest pain, she will be discharged home in improving condition. Medications see list. Follow up with me in the office tomorrow. Diabetes mellitus-insulin sliding scale Hypokalemia-supplement Acute kidney injury with baseline creatinine of 0.92 and her creatinine currently 1.04. Likely related to dehydration. Right middle lobe nodule-continue with outpatient workup Admission status: Admitted to observation with hypertensive urgency-blood pressure better this morning. Likely discharge to home later today. Maintain observation status
--- NOTE | 2024-06-29 08:12 | P.DS_ITS ---
DS: Providers Provider Date of admission: 06/29/24 04:44 Primary care physician: Carlito Murillo MD Consults: 06/29/24 06:38 Consult to Cardiology Routine Reason for consultation: hypertensive urgency Has provider been notified: No DS: Diagnosis Discharge Diagnosis (1) Hypertensive urgency: (2) Hypokalemia: (3) Hypertension, uncontrolled: (4) Diabetes: Qualifiers: Diabetes mellitus complication status: without complication Diabetes mellitus senior care insulin use: without termination clerk use Diabetes mellitus type: type 2 Qualified Code(s): E11.9 - Type 2 diabetes mellitus without complications Plan Admission findings: Uncontrolled hypertension leading to hypertensive urgency with chest pain. Progressed to acute NSTEMI. Patient placed on heparin transferring to [facility] Diabetes mellitus-stable at the time of discharge [id number] as an outpatient Acute kidney injury with baseline creatinine of 0.92 and her creatinine currently 1.04. Improving at the time of discharge Right middle lobe nodule-continue with outpatient workup Admission status: Admitted to observation with hypertensive urgency-blood pressure better this morning. Likely discharge to home later today. Maintain observation status ? DS: Summary Hospital Course Hospital Course: Patient admitted with an episode of chest pain, uncontrolled hypertension leading to hypertensive urgency. Blood pressure improved overnight. After rounds this morning, patient developed chest pain. EKG was done which showed may be some deepening of the T wave inversion in the inferior lateral leads. No other specific acute findings. Chest pain resolved spontaneously. Did do cardiac markers which went from 11-62/120 for the third set. Discussed with cardiology at [facility] who recommended patient to be transferred. Positive troponins with acute NSTEMI and hypertensive urgency Status at Discharge Overall status at discharge: patient is not back to baseline Time Spent with Patient Time attestation: Total time spent providing and/or coordinating discharge services: Time spent: greater than 30 minutes Exam Constitutional Vital Signs, click to edit/add: Last Vital Signs Temp 97.5 F L 06/29/24 08:00 Pulse 89 06/29/24 08:00 Resp 18 06/29/24 08:00 BP 147/70 H 06/29/24 08:00 Pulse Ox 94 L 06/29/24 08:00 O2 Del Method Room Air 06/29/24 04:56 Documenting provider has reviewed patient's vital signs: yes Common normals: no apparent distress [facility] Common normals: normocephalic Chest Common normals: inspection of chest normal Respiratory Common normals: normal respiratory effort and no retractions Cardio Common normals: regular rate, regular rhythm and no murmurs GI Common normals: Normal to inspection, nondistended, normoactive bowel sounds present Extremity Common normals: normal to inspection Neuro Common normals: oriented x3 and CN's II-XII intact bilaterally DS: Data Data Completed and Pending Labs on day of discharge: Labs from last 24 hours 06/29/24 06/29/24 06/29/24 07:47 05:25 02:30 WBC 7.1 RBC 4.78 Hgb 13.3 Hct 40.3 MCV 84.3 MCH 27.8 MCHC 33.0 RDW 14.6 Plt Count 251 MPV 10.3 Neut % (Auto) 58.4 Lymph % (Auto) 30.5 [place] % (Auto) 6.9 Eos % (Auto) 3.1 Baso % (Auto) 0.8 Neut # (Auto) 4.2 Lymph # (Auto) 2.2 [place] # (Auto) 0.5 Eos # (Auto) 0.2 Baso # (Auto) 0.1 Abs Immat Gran (auto) 0.02 Imm/Tot Granulo (auto) 0.3 Sodium 142 Potassium 3.2 L Chloride 106 Carbon Dioxide 28.4 Anion Gap 10.8 BUN 15.0 Creatinine 1.04 H Est GFR ( Amer) >60 Est GFR (Non-Af Amer) 54 L BUN/Creatinine Ratio 14.4 Glucose 140 H Calcium 8.7 Magnesium 1.7 L Total Bilirubin 0.3 AST 22 ALT 60 H Alkaline Phosphatase 99 Troponin I High Sens 8.7 7.7 NT-Pro-B Natriuret Pep 276.0 Total Protein 6.7 Albumin 3.3 L Globulin 3.4 Albumin/Globulin Ratio 1.0 POC Glucose 112 H Discharge Plan Discharge Disposition: Home, Self-Care Condition: Fair Discharge Medications: New isosorbide mononitrate 60 mg Tablet Extended Release 24 Hr 60 mg PO QD Qty: 30 11RF lorazepam [Ativan] 0.5 mg tablet 0.5 mg PO Q8H PRN (Reason: anxiety) 20 Days Qty: 60 0RF pantoprazole [Protonix] 40 mg tablet,delayed release (DR/EC) 40 mg PO DAILY Qty: 30 11RF Continued metoprolol tartrate 100 mg tablet 100 mg PO Q12H metformin 500 mg tablet 500 mg PO BID aspirin 81 mg capsule 81 mg PO DAILY furosemide [Lasix] 20 mg tablet 20 mg PO DAILY clonidine HCl 0.1 mg tablet 0.1 mg PO Q12H quetiapine 25 mg tablet 50 mg PO BEDTIME losartan 50 mg tablet 50 mg PO DAILY Discontinued lorazepam [Ativan] 0.5 mg tablet 0.25 mg PO Q8H PRN (Reason: panic attack(s)) Patient Comments: Takes 0.25 mg when she has panic attacks and can take additional 0.25 mg if needed Print Language: Yakut Patient Instructions: Isosorbide Mononitrate (By mouth), Pantoprazole (By mouth), Angina (DC) Forms: Portal Instructions Follow Up Appointments: Dr Murillo, Wednesday at 11:15
[2024-06-29] MEDS: ISOSORBIDE MONONITRATE 60 MG TAB.ER.24H PO (08:57)
[2024-06-29] MEDS: PANTOPRAZOLE SODIUM 40 MG VIAL IV ×2 (08:58→20:42)
[2024-06-29] MEDS: METFORMIN HCL 500 MG TABLET PO ×2 (08:58→20:42)
[2024-06-29] MEDS: FUROSEMIDE 20 MG TABLET PO (08:58)
[2024-06-29] MEDS: ASPIRIN 81 MG TABLET.DR PO (08:58)
[2024-06-29] MEDS: POTASSIUM CHLORIDE 10 MEQ ER TABLET 20 MEQ PO ×2 (08:58→20:42)
[2024-06-29] MEDS: SUCRALFATE 1 GM TABLET PO ×3 (08:58→17:04)
[2024-06-29] MEDS: LOSARTAN POTASSIUM 50 MG TABLET PO (08:58)
[2024-06-29 09:15] LABS: Troponin I High Sensitivity 11.3 pg/mL (4.0-51.3)
[2024-06-29 11:26] LABS: Glucometer 135 mg/dL (74-106)
[2024-06-29 12:14] LABS: Troponin I High Sensitivity 65.1 pg/mL (4.0-51.3)
--- NOTE | 2024-06-29 13:56 | SWNOTE1 ---
SW met with pt to discuss dc needs. Pt lives at home alone, she is independent and does not use any devices. Pt's kids live close by if needed. Pt does not anticipate any discharge needs at this time.
[2024-06-29 15:36] LABS: Troponin I High Sensitivity 123.2 pg/mL (4.0-51.3)
[2024-06-29 16:51] LABS: Glucometer 169 mg/dL (74-106)
[2024-06-29] MEDS: LORAZEPAM 0.5 MG TABLET 0.25 MG PO (17:03)
[2024-06-29] MEDS: HEPARIN SODIUM (PORCINE) 5,000 UNIT/ML VIAL 4000 UNIT IV (18:02)
[2024-06-29] MEDS: HEPARIN SODIUM,PORCINE/D5W 25,000 UNIT/500 ML IV.SOLN 17 UNIT IV (18:03)
[2024-06-29 18:41] LABS: Partial Thromboplastin Time 21.5 sec (22.3-36.2)
[2024-06-29] MEDS: MORPHINE SULFATE 2 MG/ML SYRINGE IV (19:05)
[2024-06-29 19:39] LABS: Troponin I High Sensitivity 105.8 pg/mL (4.0-51.3)
[2024-06-29 20:43] LABS: Glucometer 128 mg/dL (74-106)
--- NOTE | 2024-06-30 01:05 | PC.NURSE ---
report was given to S[facility] with [facility]. Pt was discharged at 215. Family in the room and aware of transfer. Report was called to Sandra GUZMAN at 2200.
--- NOTE | 2024-06-30 12:18 | CM.DCFOLLOWU ---
Pt was transferred to higher level of care
== END 2024-06-29 21:56 | disposition short-term general hospital (02) ==
LOC: ER 04:19 → MS 04:45
PROVIDERS: Registered Nurse; Admitting Provider Family Medicine; Emergency Provider Emergency Medicine; PCP Family Medicine; Visit Provider Family Medicine
DX: I16.0 Hypertensive urgency (principal); I21.4 Non-ST elevation (NSTEMI) myocardial infarction; R07.9 Chest pain, unspecified; E11.9 Type 2 diabetes mellitus without complications; E87.6 Hypokalemia; N17.9 Acute kidney failure, unspecified; R91.1 Solitary pulmonary nodule; F41.9 Anxiety disorder, unspecified; Z79.82 Long term (current) use of aspirin; Z79.84 Long term (current) use of oral hypoglycemic drugs; Z87.891 Personal history of nicotine dependence
CPT/HCPCS: 36415; 71045; 76775; 80048; 80053; 82948; 83735; 83880; 84484; 85025; 85730; 93005; 93306; 93975; 94761; 96374; 96375; 96376; 99285; G0378; J0360; J1290; J1644; J2270

== ENCOUNTER 2024-07-01 17:21 | Emergency (ER) | payer MEDICAID, SELFPAY ==
[2024-07-01] VITALS (15 sets, daily range): BP systolic 115–204; BP diastolic 52–104; PULSE 81–95; TEMP 37.1; O2SAT 95–98; BMI 38.1
--- OUTSIDE RECORDS SUMMARY | 2024-07-01 17:27 | XMS_ITS | CCD ---
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 Name Role Phone Kendra Murillo Primary Care [...] Medication Allergies] Propensity to adverse reactions (disorder) [facility] Repository (1 source) ALPRAZolam; 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: [ALPRAZOLAM] Drug Allergy 4 [facility] Repository (1 source) amLODIPine; 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: [AMLODIPINE] Drug Allergy 4 [facility] Repository (1 source) Lisinopril; 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: [LISINOPRIL] Drug Allergy 4 [facility] Repository Medications Current Medications Medication Drug [...] Coronary arteriosclerosis; 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: [Atherosclerotic heart disease of [place] coronary artery without angina pectoris] Onset: 3 [...] 11-26-2022 12-20-2019 Episodic Other aftercare (1 source) half-way (current) use of aspirin; 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: [HALF-WAY CURRENT USE OF ASPIRIN] Onset: 11-26-2022 Episodic Other aftercare (1 source) Other usp (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 therapy; 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: [OTH HALF-WAY CURRENT DRUG THERAPY] Onset: 11-26-2022 Episodic Other [...] Range Facility Office Visiton 06-21-2024 Follow-up visit [id number] Aby Madrigal Cristina 1965 [facility] Provider Department Center 06/21/2024 GOMEZ KENDALL RIAZ [place] Family History Problem Relation Age of Onset Lung cancer Mother No Known Problems Father Lung cancer Sister Family Status - Relation Status Age at Mother Father Sister Level of Service:18111 ID OFFICE/OUTPATIENT ESTABLISHED MOD MDM 30 MIN Normal [facility] Office Visiton 05-26-2024 Follow-up visit [id number] Aby Madrigal Cristina 1965 Provider Department Center 05/26/2024 [id number] GRADY RIAZ [place] Family History Problem Relation Age of Onset Lung cancer Mother No Known Problems Father Lung cancer Sister Family Status - Relation Status Age at Mother Father Sister Level of Service:[id number] ID OFFICE/OUTPATIENT NEW MODERATE MDM 45 MINUTES Normal [facility] Outside Colonoscopyon 2022 Outside Colonoscopy [id number] .00CD:127 Normal [facility] Reminderson 11-27-2022 Reminders - From: Na Hayes LPN To: N - Clinical; Sent: 11/27/2022 12:46:10 EST Show up: 10/25/2032 07:00:00 EST Subject: colonoscopy recall Due Date/Time: 11/25/2032 07:00:00 EST Reminder/Recall Patient is due for screening colonoscopy 11/25/2032. Normal [facility] Lab Reportson 11-24-2022 Lab Reports [id number] .00CD:127 Normal [facility]on [facility]-24 SARS-CoV-2 (COVID-19) RNA BECK+probe Ql (Unsp spec) Not detected Normal NOT DETECTED [facility] Comment on above: Result Comment: This test is not yet approved or cleared by the [place] FDA. When there are no FDA-approved or cleared tests available, and other criteria are met, FDA can make tests available under an emergency access mechanism called an Emergency Use Authorization (EUA). The EUA for this test is supported by the [place] of Health and Human Service's (HHS's) declaration [...] consistent with SARS-CoV-2. Performed By: #### [facility] #### [facility] [address] [place] [address] Dr. Rich Cutler Consent for Procedure/Surger yon 10-07-2022 Consent for Procedure/Surgery [id number] .00CD:127 Normal [facility] Ambulatory Visit Summaryon 1 12-06-2021 Ambulatory Visit [...] for. Allergic conjunctivitis Anticoagulated Kidney stones Normal [facility] VC VENOUS REFLUX NINO LMTon 1 12-02-2021 VC VENOUS REFLUX NINO LMT Patient: ABY MADRIGALRaul Exam Date: 10/02/2022 : 1965 Gender:F Ordering : DR KENDRA MURILLO . Admission #: [id number] Family : Order #: [id number] CLICK HERE TO VIEW EXAM RADIOLOGY REPORT [...] chronic thrombus visualized Compressibility: Normal Flow: Normal St[employer] Hat Brusher: Dist/med calf 3.3mm with 0s reflux. Tech Note: Incompetent SFJ and GSV. Patent varicose vein mid/med calf 2.9mm with 0s reflux. Patent varicose vein prox/post calf 3.8mm with 0s reflux. Patent varicose vein dist/med thigh 3.8mm with 2.0s reflux. CONCLUSION: 1. Mild right and keep-oz-eskxyjwv left great saphenous vein venous insufficiency with dilatation 2. Left saphenous popliteal junction reflux 3. Mild left anterior accessory saphenous vein venous insufficiency without dilatation 4. Small bilateral incompetent varicose veins Dictated by: Adelia Lezama MD on 10/02/2022 at 13:36 Approved by: Adelia Lezama MD on 10/02/2022 at 13:52 Normal [facility] ECHOCARDIO M/2D COMPLETEon 1 11-30-2021 ECHOCARDIO M/2D COMPLETE Patient: ABY MADRIGAL Exam Date: 09/30/2022 : 1965 Gender:F Ordering : DR KENDRA MURILLO . Admission #: [id number] Family : Order #: [id number] CLICK HERE TO VIEW EXAM ECHOCARDIOGRAM REPORT [...] on 09/30/2022 at 18:[address] [facility] BNPon 09-24-2022 Natriuretic peptide B (Bld) [Mass/Vol] 501.0 pg/mL Normal <=900.[address] [facility] Comment on above: Performed By: #### C VDTBH #### [facility] [address] [place] [address] Dr. Rich Cutler CBC AUTO DIFFon 09-24-2022 BASO # 0.1 103/ul Normal 0.0-0.[address] [facility] Comment on above: Performed By: #### C VDTBH #### [facility] [address] [place] [address] Dr. Rich Cutler Basophils/100 WBC (Bld) 0.8 % Normal 0.2-2.0 [facility] Comment on above: Performed By: #### C VDTBH #### [facility] [address] [place] [address] Dr. Rich Cutler EO # 0.3 103/ul Normal 0.0-0.[address] [facility] Comment on above: Performed By: #### C VDTBH #### [facility] [address] [place] [address] Dr. Rich Cutler Eosinophils/100 WBC (Bld) 3.4 % Normal 0.9-7.0 [facility] Comment on above: Performed By: #### C VDTBH #### [facility] [address] [place] [address] Dr. Rich Cutler Erythrocyte distribution width (RBC) [Ratio] 13.3 % Normal 11.0-15.[address] [facility] Comment on above: Performed By: #### C VDTBH #### [facility] [address] [place] [address] Dr. Rich Cutler Hematocrit (Bld) [Volume fraction] 40.5 % Normal 36.0-48.[address] [facility] Comment on above: Performed By: #### C VDTBH #### [facility] [address] [place] [address] Dr. Rich Cutler Hemoglobin (Bld) [Mass/Vol] 13.1 g/dL Normal 12.0-16.[address] [facility] Comment on above: Performed By: #### C VDTBH #### [facility] [address] [place] [address] Dr. Rich Cutler IG # 0.02 10e3/ul Normal 0.00-0.[address] [facility] Comment on above: Performed By: #### C VDTBH #### [facility] [address] [place] [address] Dr. Rich Cutler IG % 0.3 % Normal 0.0-0.[address] [facility] Comment on above: Performed By: #### C VDTBH #### [facility] [address] [place] [address] Dr. Rich Cutler LYMPH # 2.7 103/ul Normal 1.2-3.[address] [facility] Comment on above: Performed By: #### C VDTBH #### [facility] [address] [place] [address] Dr. Rich Cutler Lymphocytes/100 WBC (Bld) 35.4 % Normal 20.5-60.[address] [facility] Comment on above: Performed By: #### C VDTBH #### [facility] [address] [place] [address] Dr. Rich Cutler MANUAL DIFF REQ NO Normal [facility] Comment on above: Performed By: #### C VDTBH #### [facility] [address] [place] [address] Dr. Rich Cutler MCH (RBC) [Entitic mass] 28.2 pg Normal 26.7-34.[address] [facility] Comment on above: Performed By: #### C VDTBH #### [facility] [address] [place] [address] Dr. Rich Cutler MCHC (RBC) [Mass/Vol] 32.3 g/dL Normal 29.9-35.[address] [facility] Comment on above: Performed By: #### C VDTBH #### [facility] [address] [place] [address] Dr. Rich Cutler MCV (RBC) [Entitic vol] 87.3 fL Normal 81.0-99.[address] [facility] Comment on above: Performed By: #### C VDTBH #### [facility] [address] [place] [address] Dr. Rich Cutler MONO # 0.5 103/ul Normal 0.3-0.[address] [facility] Comment on above: Performed By: #### C VDTBH #### [facility] [address] [place] [address] Dr. Rich uCtler Monocytes/100 WBC (Bld) 6.5 % Normal 1.7-12.0 [facility] Comment on above: Performed By: #### C VDTBH #### [facility] [address] [place] [address] Dr. Rich Cutler NEUT # 4.1 103/ul Normal 1.4-6.5 [facility] Comment on above: Performed By: #### C VDTB #### [facility] [address] [place] [address] Dr. Rich Cutler Neutrophils/100 WBC (Bld) 53.6 % Normal 43.0-75.0 [facility] Comment on above: Performed By: #### C VDTBH #### [facility] [address] [place] [address] Dr. Rich Cutler Platelet mean volume (Bld) [Entitic vol] 10.3 fL Normal 9.5-13.[address] [facility] Comment on above: Performed By: #### C VDTBH #### [facility] [address] [place] [address] Dr. Rich Cutler PLT 283 103/ul Normal 150-[address] [facility] Comment on above: Performed By: #### C VDTBH #### [facility] [address] [place] [address] Dr. Rich Cutler RBC 4.64 106/ul Normal 4.20-5.[address] [facility] Comment on above: Performed By: #### C VDTBH #### [facility] [address] [place] [address] Dr. Rich Cutler WBC 7.6 103/ul Normal 4.0-11.0 [facility] Comment on above: Performed By: #### C VDTBH #### [facility] [address] [place] [address] Dr. Rich Cutler INSULINon 09-24-2022 Insulin 15.1 uIU/mL Normal 2.6-24.9 [facility] Comment on above: Performed By: #### C VDTBH #### [facility] [address] [place] [address] Dr. Rich Cutler PROF 14(COMP METB)on 022 Albumin [Mass/Vol] 3.5 g/dL Normal 3.4-5.0 [facility] Comment on above: Performed By: #### C VDTBH #### [facility] [address] [place] [address] Dr. Rich Cutler Albumin/Globulin [Mass ratio] 1.0 {ratio} Normal [facility] Comment on above: Performed By: #### C VDTBH #### [facility] [address] [place] [address] Dr. Rich Cutler ALP [Catalytic activity/Vol] 91 U/L Normal 46-116 [facility] Comment on above: Performed By: #### C VDTBH #### [facility] [address] [place] [address] Dr. Rich Cutler ALT [Catalytic activity/Vol] 47 U/L Normal 14-59 [facility] Comment on above: Performed By: #### C VDTBH #### [facility] [address] [place] [address] Dr. Rich Cutler Anion gap [Moles/Vol] 11.7 mmol/L Normal [facility] Comment on above: Performed By: #### C VDTBH #### [facility] [address] [place] [address] Dr. Rich Cutler AST [Catalytic activity/Vol] 24 U/L Normal 15-37 [facility] Comment on above: Performed By: #### C VDTBH #### [facility] [address] [address] [address] Rich Cutler Bilirubin [Mass/Vol] 0.2 mg/dL Normal 0.2-1.0 [facility] Comment on above: Performed By: #### C VDTBH #### [facility] [address] [address] [address] Rich Cutler Calcium [Mass/Vol] 8.9 mg/dL Normal 8.5-10.1 [facility] Comment on above: Performed By: #### C VDTBH #### [facility] [address] [address] [address] Rich Cutler Chloride [Moles/Vol] 105 mmol/L Normal 98-107 [facility] Comment on above: Performed By: #### C VDTBH #### [facility] [address] [address] [address] Rich Cutler CO2 [Moles/Vol] 28.1 mmol/L Normal 21.0-32.0 [facility] Comment on above: Performed By: #### C VDTBH #### [facility] [address] [address] [address] Rich Cutler Creatinine [Mass/Vol] 1.13 mg/dL Critically high 0.55-1.02 [facility] Comment on above: Performed By: #### C VDTBH #### [facility] [address] [address] [address] Rich Cutler EGFR-AF CROATIAN 60 mL/min/1.73m2 Normal >=60 [facility] Comment on above: Performed By: #### C VDTBH #### [facility] [address] [address] [address] Rich Cutler EGFR-NON AF CROATIAN 49 mL/min/1.73m2 Critically low >=60 [facility] Comment on above: Performed By: #### C VDTBH #### [facility] [address] [address] [address] Rich Cutler Globulin (S) [Mass/Vol] 3.5 g/dL Normal [facility] Comment on above: Performed By: #### C VDTBH #### [facility] [address] [address] [address] Rich Cutler Glucose [Mass/Vol] 119 mg/dL Critically high 74-106 [facility] Comment on above: Performed By: #### C VDTBH #### [facility] [address] [address] [address] Rich Cutler Potassium [Moles/Vol] 3.8 mmol/L Normal 3.5-5.1 [facility] Comment on above: Performed By: #### C VDTBH #### [facility] [address] [address] [address] Rich Cutler Protein [Mass/Vol] 7.0 g/dL Normal 6.4-8.2 [facility] Comment on above: Performed By: #### C VDTBH #### [facility] [address] [place] [address] Dr. Rich Cutler Sodium [Moles/Vol] 141 mmol/L Normal 136-145 [facility] Comment on above: Performed By: #### C VDTBH #### [facility] [address] [address] [address] Rich Cutler Urea nitrogen [Mass/Vol] 16.0 mg/dL Normal 7.0-18.0 [facility] Comment on above: Performed By: #### C VDTBH #### [facility] [address] [place] [address] Dr. iRch Cutler Urea nitrogen/Creatinine [Mass ratio] 14.2 mg/mg Normal [facility] Comment on above: Performed By: #### C VDTBH #### [facility] [address] [place] [address] Dr. Rich Cutler TROPONIN, HIGH SENSITIVITYon 09-24-2022 HSTROP 10.6 pg/mL Normal 4.0-51.3 [facility] Comment on above: Result Comment: CUT- OFF POINTS HAVE BEEN ESTABLISHED BASED ON THE FOURTH UNIVERSAL DEFINITIONS OF MYOCARDIAL INFARCTION. THE UPPER REFERENCE LIMIT (URL) OF TROPONIN, DEFINED THE 99TH PERCENTILE OF cTnI DISTRIBUTION IN A REFERENCE POPULATION, HAS BEEN CONFIRMED THE DECISION THRESHOLD FOR DC DIAGNOSIS. Performed By: #### C VDTB #### [facility] [address] [place] [address] Dr. Rich Cutler XR CHEST 1 Von [...] HUMPHRIES Date: 2022-09-24 04:[address] [facility] CBC AUTO DIFFon 09-23-2022 BASO # 0.1 103/ul Normal 0.0-0.[address] [facility] Comment on above: Performed By: #### C BC #### [facility] [address] [place] [address] Dr. Rich Cutler Basophils/100 WBC (Bld) 0.8 % Normal 0.2-2.[address] [facility] Comment on above: Performed By: #### C BC #### [facility] [address] [place] [address] Dr. Rich Cutler EO # 0.2 103/ul Normal 0.0-0.[address] [facility] Comment on above: Performed By: #### C BC #### [facility] [address] [place] [address] Dr. Rich Cutler Eosinophils/100 WBC (Bld) 3.5 % Normal 0.9-7.[address] [facility] Comment on above: Performed By: #### C BC #### [facility] [address] [place] [address] Dr. Rich Cutler Erythrocyte distribution width (RBC) [Ratio] 13.4 % Normal 11.0-15.0 [facility] Comment on above: Performed By: #### C BC #### [facility] [address] [place] [address] Dr. Rich Cutler Hematocrit (Bld) [Volume fraction] 42.3 % Normal 36.0-48.0 [facility] Comment on above: Performed By: #### C BC #### [facility] [address] [place] [address] Dr. Rich Cutler Hemoglobin (Bld) [Mass/Vol] 13.4 g/dL Normal 12.0-16.0 [facility] Comment on above: Performed By: #### C BC #### [facility] [address] [place] [address] Dr. Rich Cutler IG # 0.03 10e3/ul Normal 0.00-0.03 [facility] Comment on above: Performed By: #### C BC #### [facility] [address] [place] [address] Dr. Rich Cutler IG % 0.5 % Normal 0.0-0.5 [facility] Comment on above: Performed By: #### C BC #### [facility] [address] [place] [address] Dr. Rich Cutler LYMPH # 2.9 103/ul Normal 1.2-3.8 [facility] Comment on above: Performed By: #### C BC #### [facility] [address] [place] [address] Dr. Rich Cutler Lymphocytes/100 WBC (Bld) 44.0 % Normal 20.5-60.0 [facility] Comment on above: Performed By: #### C BC #### [facility] [address] [place] [address] Dr. Rich Cutler MANUAL DIFF REQ NO Normal [facility] Comment on above: Performed By: #### C BC #### [facility] [address] [place] [address] Dr. Rich Cutler MCH (RBC) [Entitic mass] 28.4 pg Normal 26.7-34.0 [facility] Comment on above: Performed By: #### C BC #### [facility] [address] [place] [address] Dr. Rich Cutler MCHC (RBC) [Mass/Vol] 31.7 g/dL Normal 29.9-35.[address] [facility] Comment on above: Performed By: #### C BC #### [facility] [address] [place] [address] Dr. Rich Cutler MCV (RBC) [Entitic vol] 89.6 fL Normal 81.0-99.0 [facility] Comment on above: Performed By: #### C BC #### [facility] [address] [place] [address] Dr. Rich Cutler MONO # 0.4 103/ul Normal 0.3-0.[address] [facility] Comment on above: Performed By: #### C BC #### [facility] [address] [place] [address] Dr. Rich Cutler Monocytes/100 WBC (Bld) 6.6 % Normal 1.7-12.[address] [facility] Comment on above: Performed By: #### C BC #### [facility] [address] [place] [address] Dr. Rich Cutler NEUT # 2.9 103/ul Normal 1.4-6.5 [facility] Comment on above: Performed By: #### C BC #### [facility] [address] [place] [address] Dr. Rich Cutler Neutrophils/100 WBC (Bld) 44.6 % Normal 43.0-75.[address] [facility] Comment on above: Performed By: #### C BC #### [facility] [address] [place] [address] Dr. Rich Cutler Platelet mean volume (Bld) [Entitic vol] 11.0 fL Normal 9.5-13.[address] [facility] Comment on above: Performed By: #### C BC #### [facility] [address] [place] [address] Dr. Rich Cutler PLT 272 103/ul Normal 150-[address] [facility] Comment on above: Performed By: #### C BC #### [facility] [address] [place] [address] Dr. Rich Cutler RBC 4.72 106/ul Normal 4.20-5.40 [facility] Comment on above: Performed By: #### C BC #### [facility] [address] [place] [address] Dr. Rich Cutler WBC 6.5 103/ul Normal 4.0-11.0 [facility] Comment on above: Performed By: #### C BC #### [facility] [address] [place] [address] Dr. Rich Cutler FREE THYROXINE INDEX T7on FTI 2.16 Normal 1.30-4.50 [facility] Comment on above: Performed By: #### L IPID, TSH, T7, CMP #### [facility] [address] [place] [address] Dr. Rich Cutler T3U 30.0 % Normal 30.0-39.0 [facility] Comment on above: Performed By: #### L IPID, TSH, T7, CMP #### [facility] [address] [place] [address] Dr. Rich Cutler T4 [Mass/Vol] 7.20 ug/dL Normal 4.80-13.90 [facility] Comment on above: Performed By: #### L IPID, TSH, T7, CMP #### [facility] [address] [place] [address] Dr. Rich Cutler GLYCOHEMOGLOBIN A1Con 2021 ADA RECOMMENDATION SEE BELOW Normal [facility] Comment on above: Result Comment: ADA RECOMMENDED LIMIT 4.0 - 6.0 ADA THERAPEUTIC TARGET < 7.0 ACTION SUGGESTED > 7.0 Performed By: #### A 1C #### [facility] [address] [place] [address] Dr. Rich Cutler Glucose [Mass/Vol] 128 mg/dL Normal [facility] Comment on above: Performed By: #### A 1C #### [facility] [address] [place] [address] Dr. Rich Cutler HbA1c (Bld) [Mass fraction] 6.1 % Normal 4.5-6.2 [facility] Comment on above: Performed By: #### A 1C #### [facility] [address] [address] [address] Rich Cutler IRONon 09-23-2022 Iron [Mass/Vol] 64.0 ug/dL Normal 50.0-170.0 [facility] Comment on above: Performed By: #### C VDTBH #### [facility] [address] [address] [address] Rich Cutler LIPID PROFILEon 09-23-2022 CHOL-HDL RATIO NORM SEE BELOW Normal [facility] Comment on above: Result Comment: 3.3 - 4.4 LOW RISK 4.4 - 7.1 AVERAGE RISK 7.1 - 11.0 MODERATE RISK >11.0 HIGH RISK Performed By: #### L IPID, TSH, T7, CMP #### [facility] [address] [address] [address] Rich Cutler Cholesterol [Mass/Vol] 237 mg/dL Critically high <=200 [facility] Comment on above: Performed By: #### L IPID, TSH, T7, CMP #### [facility] [address] [address] [address] Rich Cutler Cholesterol in HDL [Mass/Vol] 44 mg/dL Normal 40-60 [facility] Comment on above: Performed By: #### L IPID, TSH, T7, CMP #### [facility] [address] [address] [address] Rich Cutler Cholesterol in LDL [Mass/Vol] 172.2 mg/dL Normal [facility] Comment on above: Performed By: #### L IPID, TSH, T7, CMP #### [facility] [address] [address] [address] Rich Cutler Cholesterol.total/Ch olesterol in HDL [Mass ratio] 5.4 {ratio} Normal [facility] Comment on above: Performed By: #### L IPID, TSH, T7, CMP #### [facility] [address] [address] [address] Rich Cutler HDL NORMAL > or = 60 mg/dl - LO W CARDIOVASCULAR RISK <40 mg/dl - HIGH CARDIOVASCULAR RISK Normal [facility] Comment on above: Performed By: #### L IPID, TSH, T7, CMP #### [facility] [address] [address] [address] Rich Cutler LDL CALC NORMAL SEE BELOW Normal [facility] Comment on above: Result Comment: <100 mg/dl OPTIMAL 100 - 129 mg/dl NEAR OR ABOVE OPTIMAL 130 - 159 mg/dl BORDERLINE HIGH 160 - 189 mg/dl HIGH >190 mg/dl VERY HIGH Performed By: #### L IPID, TSH, T7, CMP #### [facility] [address] [address] [address] Rich Cutler Triglyceride [Mass/Vol] 104 mg/dL Normal <=150 [facility] Comment on above: Performed By: #### L IPID, TSH, T7, CMP #### [facility] [address] [address] [address] Rich Cutler VLDL CALC 20.8 mg/dL Normal [facility] Comment on above: Performed By: #### L IPID, TSH, T7, CMP #### [facility] [address] [address] [address] Rich Cutler PROF 14(COMP METB)on 022 Albumin [Mass/Vol] 3.5 g/dL Normal 3.4-5.0 [facility] Comment on above: Performed By: #### L IPID, TSH, T7, CMP #### [facility] [address] [address] [address] Rich Cutler Albumin/Globulin [Mass ratio] 0.9 {ratio} Normal [facility] Comment on above: Performed By: #### L IPID, TSH, T7, CMP #### [facility] [address] [address] [address] Rich Cutler ALP [Catalytic activity/Vol] 93 U/L Normal 46-116 [facility] Comment on above: Performed By: #### L IPID, TSH, T7, CMP #### [facility] [address] [address] [address] Rich Cutler ALT [Catalytic activity/Vol] 44 U/L Normal 14-59 [facility] Comment on above: Performed By: #### L IPID, TSH, T7, CMP #### [facility] [address] [address] [address] Rich Cutler Anion gap [Moles/Vol] 8.5 mmol/L Normal [facility] Comment on above: Performed By: #### L IPID, TSH, T7, CMP #### [facility] [address] [place] [address] Dr. Rich Cutler AST [Catalytic activity/Vol] 26 U/L Normal 15-37 [facility] Comment on above: Performed By: #### L IPID, TSH, T7, CMP #### [facility] [address] [place] [address] Dr. Rich Cutler Bilirubin [Mass/Vol] 0.3 mg/dL Normal 0.2-1.0 [facility] Comment on above: Performed By: #### L IPID, TSH, T7, CMP #### [facility] [address] [place] [address] Dr. Rich Cutler Calcium [Mass/Vol] 9.0 mg/dL Normal 8.5-10.1 [facility] Comment on above: Performed By: #### L IPID, TSH, T7, CMP #### [facility] [address] [place] [address] Dr. Rich Cutler Chloride [Moles/Vol] 106 mmol/L Normal 98-[address] [facility] Comment on above: Performed By: #### L IPID, TSH, T7, CMP #### [facility] [address] [place] [address] Dr. Rich Cutler CO2 [Moles/Vol] 31.0 mmol/L Normal 21.0-32.0 [facility] Comment on above: Performed By: #### L IPID, TSH, T7, CMP #### [facility] [address] [place] [address] Dr. Rich Cutler Creatinine [Mass/Vol] 1.11 mg/dL Critically high 0.55-1.02 [facility] Comment on above: Performed By: #### L IPID, TSH, T7, CMP #### [facility] [address] [address] [address] Rich Cutler EGFR-AF CROATIAN >60 Normal >=60 [facility] Comment on above: Performed By: #### L IPID, TSH, T7, CMP #### [facility] [address] [address] [address] Rich Cutler EGFR-NON AF CROATIAN 50 mL/min/1.73m2 Critically low >=60 [facility] Comment on above: Performed By: #### L IPID, TSH, T7, CMP #### [facility] [address] [address] [address] Rich Cutler Globulin (S) [Mass/Vol] 3.7 g/dL Normal [facility] Comment on above: Performed By: #### L IPID, TSH, T7, CMP #### [facility] [address] [place] [address] Dr. Rich Cutler Glucose [Mass/Vol] 121 mg/dL Critically high 74-106 [facility] Comment on above: Performed By: #### L IPID, TSH, T7, CMP #### [facility] [address] [address] [address] Rich Cutler Potassium [Moles/Vol] 4.5 mmol/L Normal 3.5-5.1 [facility] Comment on above: Performed By: #### L IPID, TSH, T7, CMP #### [facility] [address] [address] [address] Rich Cutler Protein [Mass/Vol] 7.2 g/dL Normal 6.4-8.2 [facility] Comment on above: Performed By: #### L IPID, TSH, T7, CMP #### [facility] [address] [address] [address] Rich Cutler Sodium [Moles/Vol] 141 mmol/L Normal 136-145 [facility] Comment on above: Performed By: #### L IPID, TSH, T7, CMP #### [facility] [address] [address] [address] Rich Cutler Urea nitrogen [Mass/Vol] 16.0 mg/dL Normal 7.0-18.0 [facility] Comment on above: Performed By: #### L IPID, TSH, T7, CMP #### [facility] [address] [address] [address] Rich Cutler Urea nitrogen/Creatinine [Mass ratio] 14.4 mg/mg Normal [facility] Comment on above: Performed By: #### L IPID, TSH, T7, CMP #### [facility] [address] [address] [address] Rich Cutler TSHon 09-23-2022 TSH 3.915 uIU/mL Critically high 0.358-3.740 [facility] Comment on above: Performed By: #### L IPID, TSH, T7, CMP #### [facility] [address] [address] [address] Rich Ctuler Physician Referralon 022 Physician Referral [phone] [id number] Normal [facility] Lipid Panelon 10-07-2021 Cholesterol [Mass/Vol] 205 mg/dL High 140-200 [facility] Comment on above: Result Comment: Chol less than 200 mg/dl low risk Chol 201-239 mg/dl borderline risk Chol 240 mg/dl and greater high risk Performed By: #### L IPID, [id number], TSH3 wRFLX #### [facility] [address] [id number] [place] Cholesterol in HDL [Mass/Vol] 25 mg/dL Low 35-85 [facility] Comment on above: Result Comment: HDL CHOL ATP-III CLASSIFICATION Cardiovascular Risk HDL > or equal to 60 mg/dL LOW HDL < 40 mg/dL HIGH Performed By: #### L IPID, [id number], TSH3 wRFLX #### [facility] [address] [id number] [place] Cholesterol.total/Ch olesterol in HDL [Mass ratio] 8.2 {ratio} Normal <5.0 [facility] Comment on above: Performed By: #### L IPID, [id number], TSH3 wRFLX #### [facility] [address] LDL Cholesterol,Calculat ed 160 mg/dL High 0-100 [facility] Comment on above: Result Comment: LDL ATP III CLASSIFICATION LDL less than 100 mg/dL Optimal LDL 100-129 mg/dL Near or above optimal LDL 130-159 mg/dL Borderline high LDL 160-189 mg/dL High LDL greater than 189 mg/dL Very high Performed By: #### L IPID, [id number], TSH3 wRFLX #### [facility] [address] Triglyceride w/Reflex 100 mg/dL Normal 35-149 [facility] Comment on above: Result Comment: TRIG ATP III CLASSIFICATION TRIG less than 150 mg/dL Normal TRIG 150-199 mg/dL Borderline high TRIG 200-500 mg/dL High TRIG greater than 500 mg/dL Very high Standard traceable to the Center for Disease Conrtrol and Prevention (CDC) test method. Performed By: #### L IPID, [id number], TSH3 wRFLX #### [facility] [address] [place] [address] VLDL CHOLESTEROL 20 mg/dL Normal [facility] Comment on above: Performed By: #### L IPID, [id number], TSH3 wRFLX #### [facility] [address] [place] [address] Thyroid Stim Hormone w/Rflxo n 10-07-2021 Thyroid Stim Hormone w/Rflx 3.27 u[iU]/mL Normal 0.45-5.33 [facility] Comment on above: Performed By: #### L IPID, [id number], TSH3 wRFLX #### [facility] [address] [place] [address] Vitamin D 25 Hydroxy Totalon 10-07-2021 Vitamin D 25 Hydroxy Total 26.5 ng/mL Low 30-100 [facility] Comment on above: Result Comment: JACKELINE MIN D STATUS 25(OH)VITAMIN D RANGE (ng/mL) Deficient <20 Insufficient 20 to <30 Sufficient 30 to 100 Reference: Lanny MF,Gino NC, Dyan VALENZUELA, et al. Evaluation,treatment, and prevention of vitamin D deficiency; an Endocrine Society clinical practice guideline. JCEM. 2011 May; 96(7):1911-30. PERFORMED BY: [facility] [address] [place] [address] PATHOLOGIST HATCH TENDER SILVESTRE SCHULER M.D. Performed By: #### L IPID, [id number], TSH3 wRFLX #### [facility] [address] [id number] [facility] Vital Signs Date Time Vital Sign Value Performing Clinician Faci lity 10-06-2022 15:36-0500 Blood Pressure Location Umm MARTÍNEZ [facility] [place] 10-06-2022 15:36-0500 Diastolic blood pressure 86 mm[Hg] Umm JACQUESL [facility] 10-06-2022 15:36-0500 Heart rate 72 /min Umm NILL [facility] 10-06-2022 15:36-0500 Respiratory rate 16 /min Umm NILL [facility] 10-06-2022 15:36-0500 Systolic blood pressure 126 mm[Hg] Umm NILL [facility] Encounters Encounter Date Encounter Type Care Provider Facility Start: 06-21-2024 End: 06-21-2024 ambulatory [facility] Start: 05-26-2024 End: 05-26-2024 ambulatory [facility] Start: 11-26-2022 Encounter for preprocedural laboratory examination DR UMM MARTÍNEZ . [facility] Start: 11-25-2022 End: 11-26-2022 ambulatory Umm MARTÍNEZ Facility:[id number] Start: 11-20-2022 End: 11-21-[address] UMM MARTÍNEZ . Facility: Start: 11-20-2022 End: 11-21-2022 Encounter for preprocedural laboratory examination DR UMM MARTÍNEZ . Facility:[facility] Start: 10-06-2022 End: 10-07-2022 ambulatory Umm R NILL Facility:[facility] Start: 10-06-2022 End: 10-06-2022 Patient encounter procedure Umm Michael NILL [facility] [place] Start: 10-02-2022 End: 10-03-[address] KENDRA MURILLO . Facility:[facility] Start: 09-30-2022 End: 10-01-[address] KENDRA MURILLO . Facility:[facility] Start: 09-28-2022 Encounter for genera l adult medical examination without abnormal findings DR KENDRA MURILLO . [facility] Start: 09-24-2022 End: 09-24-[address] [...] NILL Dilation and curetta ge of uterus Mum NILL Vaginal hysterectomy Umm NILL Immunizations Immunization Date Immunization Notes Care Provider Fa [facility] 04-14-2021 SARS-CoV-2 (COVID-19 ) mRNA BNT-160a2 vax Umm NILL [facility] 03-11-2021 SARS-CoV-2 (COVID-19 ) mRNA BNT-162b2 vax Umm NILL [facility] [place] Payers Date Payer Category Payer Medicaid [id number] 1965 Unknown [id number] 2.16.8 [id number] 1965 Unknown [id number] 2.16.8 [id number] 1965 Unknown [id number] 2.16.84 [id number] 1965 Unknown [id number] 2.16.84 [id number] 1965 Unknown [id number] 2.16.84 [id number] 1965 Unknown [id number] 2.16.84 [id number] 1965 Unknown [id number] 2.16.84 [id number] 1965 Unknown [id number] 2.16.84 [id number] 1965 Unknown [id number] 2.16.84 [id number] 1960 Self-pay [id number] 1960 Unknown [id number] Social History Date Type Detail Facility Start: 10-06-2022 Tobacco smoking status Ex-smoker (fi nding) [facility] Tobacco smoking status Never [facility] [place] Sex Assigned At Female [facility] Functional Status Date Assessment Result Facility 10-06-2022 Functional Status N/A [facility] Progress note 06-21-2024 Note Date & Type Note Facility 06-21-2024 Note [facility] Ceasar Madrigal is a 59 y.o. year old female patient being seen for follow up [facility] ED per Dr. Murillo. She has not [...] attack) QURESHI (dyspnea on exertion) Atherosclerosis of [place] coronary artery of [place] heart without angina pectoris Hyperlipidemia Murmur, heart [...] Judgment: Judgment no (more content not included)... [facility] Progress note 05-26-2024 Note Date & Type Note Facility 05-26-2024 Note [facility] Note Reason for cardiology [...] PSYCH: appropriate mood, (more content not included)... [facility] Clinical Note 11-25-2022 Note Date & [...] years. CC: Kendra Murillo M.D. [facility] Clinical Note 10-11-2022 Note Date & [...] 1 tab(s), Oral, (more content not included)... [facility] Comment on above: Result Comment: Elec tronically Signed By: DIPESH BUCKNER, Umm Hogan\Date and Time Signed: 10/11/22 11:01 EST Evaluation + Plan note Note Date & Type Note Facility Evaluation + Plan note No data available for this section [facility] Discharge instructions Note Date & Type Note Facility Hospital Discharge instructions No data available for this section [facility] Progress note Note Date & Type Note Facility Progress note No data available for this section [facility] Summary Purpose Family History No Family History Records FoundNo Family History Records FoundNo Family History Records FoundNo Family History Records Found Advance Directives No Advanced Directives Records FoundNo Advanced Directives Records FoundNo Advanced Directives Records FoundNo Advanced Directives Records Found Additional Source Comments INFORMATION SOURCE (unrecogn ized section and content) DATE CREATED AUTHOR 12/17/2021 [facility] DATE CREATED AUTHOR AUTHOR'S ORGANIZ ATION 12/16/2022 [facility] DATE CREATED AUTHOR AUTHOR'S ORGANIZ ATION 03/26/2023 [facility] DATE CREATED AUTHOR AUTHOR'S ORGANIZ ATION 06/23/2024 [facility] Patient Care team informatio n (unrecognized section and content) Personnel Name: Kendra Murillo MD Address: Address: [address] [place] [address] Personnel Name: Kendra Murillo MD Address: Address: [address] [place] [address] FOR RECORDS PERTAINING TO PATIENTS WHO ARE [...] BE BASED ON THE PRIMARY CLINICAL RECORDS. [facility]. provides no warranty or guarantee of the accuracy or completeness of information in this document.
--- NOTE | 2024-07-01 17:37 | ECG_ITS ---
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
--- NOTE | 2024-07-01 17:37 | ED.CHESTPAI1 ---
HPI - Chest Pain General Chief Complaint: Chest Pain Stated Complaint: High Blood Pressure Time Seen by Provider: 07/01/24 17:31 Source: patient Mode of arrival: Carry Limitations: no limitations History of Present Illness HPI narrative: The patient presented to the ER after she just was discharged from the hospital this noon, the patient at [facility] had 1 stent placed after his recent abnormal echo She did not have any chest pain at any time The patient mentioned that she felt shaky and she think that she had an anxiety attack but she measured her blood pressure then and it was elevated at 200 and she took Ativan and came over to us to be evaluated The patient is feeling much better right now she denies any other complaints She mentioned that her blood pressure actually was low in the hospital before she was discharged and they had to stop some medication drip but she did resume taking her blood pressure medication after that Related Data Home Medications ?Medication ?Instructions ?Recorded ?Confirmed metformin 500 mg tablet 500 mg PO BID 04/21/24 07/01/24 aspirin 81 mg capsule 81 mg PO DAILY 04/22/24 07/01/24 furosemide 20 mg tablet (Lasix) 20 mg PO DAILY 04/22/24 07/01/24 clonidine HCl 0.1 mg tablet 0.1 mg PO Q12H 06/13/24 07/01/24 losartan 50 mg tablet 50 mg PO DAILY 06/29/24 07/01/24 quetiapine 25 mg tablet 50 mg PO BEDTIME 06/29/24 07/01/24 carvedilol 25 mg tablet 25 mg PO BID 07/01/24 07/01/24 clopidogrel 75 mg tablet 75 mg PO DAILY 07/01/24 07/01/24 lorazepam 0.5 mg tablet (Ativan) 0.5 mg PO Q6H PRN anxiety 07/01/24 07/01/24 rosuvastatin 40 mg sprinkle capsule 40 mg PO DAILY 07/01/24 07/01/24 Previous Rx's ?Medication ?Instructions ?Recorded pantoprazole 40 mg tablet,delayed 40 mg PO DAILY #30 tabs 06/29/24 release (Protonix) Allergies Allergy/AdvReac Type Severity Reaction Status Date / Time amlodipine Allergy Mild Headache Verified 06/29/24 02:16 alprazolam [From Xanax] AdvReac Severe Watery Eye Verified 06/29/24 02:16 Review of Systems ROS Status of ROS 10 or more systems reviewed and unremarkable except as noted in history and below [facility] Medical History (Updated 07/01/24 @ 18:47 by Theresa Baron MD) Hypokalemia ?E87.6 - Hypokalemia (ICD-10) Hypertension, uncontrolled ?I10 - Essential (primary) hypertension (ICD-10) Chest pain ?R07.9 - Chest pain, unspecified (ICD-10) NSTEMI (non-ST elevated myocardial infarction) ?I21.4 - Non-ST elevation (NSTEMI) myocardial infarction (ICD-10) Shortness of breath ?R06.02 - Shortness of breath (ICD-10) Headache ?R51.9 - Headache, unspecified (ICD-10) Elevated d-dimer ?R79.89 - Other specified abnormal findings of blood chemistry (ICD-10) Hypertensive emergency ?I16.1 - Hypertensive emergency (ICD-10) Uncontrolled hypertension ?I10 - Essential (primary) hypertension (ICD-10) Irritable bowel syndrome ?K58.9 - Irritable bowel syndrome without diarrhea (ICD-10) H/O nephrolithotomy with removal of calculi ?Z98.890 - Other specified postprocedural states (ICD-10) ?Z87.442 - Personal history of urinary calculi (ICD-10) Kidney stone ?N20.0 - Calculus of kidney (ICD-10) Sepsis ?A41.9 - Sepsis, unspecified organism (ICD-10) H/O angiography ?Z92.89 - Personal history of other medical treatment (ICD-10) Lung nodule ?R91.1 - Solitary pulmonary nodule (ICD-10) Anxiety ?F41.9 - Anxiety disorder, unspecified (ICD-10) HTN (hypertension) ?I10 - Essential (primary) hypertension (ICD-10) Diabetes ?E11.9 - Type 2 diabetes mellitus without complications (ICD-10) TIA (transient ischemic attack) ?G45.9 - Transient cerebral ischemic attack, unspecified (ICD-10) Surgical History (Updated 04/22/24 @ 01:20 by Stalin Kevin) History of appendectomy ?Z90.49 - Acquired absence of other specified parts of digestive tract (ICD-10) H/O tubal ligation ?Z98.51 - Tubal ligation status (ICD-10) History of cholecystectomy ?Z90.49 - Acquired absence of other specified parts of digestive tract (ICD-10) Family History (Updated 04/22/24 @ 01:15 by Stalin Kevin) Mother Family history of cancer Father MVA (motor vehicle accident) Brother Family history of stroke Social History (Updated 04/22/24 @ 01:26 by Stalin Kevin) Within the past year, how often did you have a drink containing alcohol: never Within the past year, how often did you have six or more drinks on one occasion: never Score interpretation: A score less than 3 is consistent with normal alcohol consumption. Smoking status: Former smoker Second hand tobacco smoke exposure: No Non-prescribed substance use: denies use Previous occupational history: no Known occupational exposures/hazards: No Highest level of school completed/degree received: high school graduate Do you want help with school or training: No Are you now , , , , never or living with a partner: In a typical week, how many times do you talk on the telephone with family, friends, or neighbors: 3 or more times per week How often do you get together with friends or relatives: 3 or more times per week How often do you attend confucianism or buddhist services: never Do you belong to any clubs or organizations such as confucianism groups unions, fraternal or athletic groups, or school groups: no Total score: 1 Score interpretation: A score of less than or equal to 1 indicates the most socially isolated. Little interest or pleasure in doing things: not at all Feeling down, depressed, or hopeless: not at all Feel stressed/tense/nervous/anxious/difficulty sleeping: not at all Gender Identity: female Exam Narrative Exam Narrative: Nurses notes and vital signs reviewed and patient is not hypoxic. General: Well-appearing and in no apparent distress. Skin: Warm, dry, no pallor noted. No rash. Head: Normocephalic, atraumatic. Neck: Supple, non-tender. Eye: Pupils are equal, round and EOMI. No scleral icterus. Ears, Nose, Mouth, and Throat: TM are clear, no nasal mucosal hypertrophy. Oral mucosa is moist, no posterior oropharynx erythema, uvula is mid-line Cardiovascular: Regular Rate and Rhythm without murmur, gallop or rub. Respiratory: No accessory muscle use or respiratory distress. Lungs are clear to auscultation, no wheezing, rales or rhonchi Chest Wall: no tenderness Back: No midline thoracic or lumbar vertebral tenderness. No CVA tenderness Musculoskeletal: normal ROM, no calf or popliteal tenderness, no lower extremity edema/swelling GI: Abdomen is soft, non-distended. Normal bowel sounds. No masses appreciated. No tenderness to palpation. No rebound, guarding, or rigidity noted. Neurological: A&O x4. No cranial nerve dysfunction observed. No truncal ataxia. Moves all extremities. Sensation intact. Psychiatric: Cooperative and interactive. Normal mood and affect. Constitutional Vital Signs, click to edit/add: Last Vital Signs Temp 98.8 F 07/01/24 17:27 Pulse 83 07/01/24 18:00 Resp 19 07/01/24 18:00 BP 146/70 H 07/01/24 18:05 Pulse Ox 97 07/01/24 18:00 O2 Del Method Room Air 07/01/24 17:41 Course Vital Signs Vital signs: Vital Signs Temperature 98.8 F 07/01/24 17:27 Respiratory Rate 18 07/01/24 17:27 Blood Pressure 162/74 H 07/01/24 17:27 Temperature 98.8 F 07/01/24 17:27 Pulse Rate 83 07/01/24 18:00 Respiratory Rate 19 07/01/24 18:00 Blood Pressure 146/70 H 07/01/24 18:05 Pulse Oximetry 97 07/01/24 18:00 Oxygen Delivery Method Room Air 07/01/24 17:41 MDM - Chest Pain MDM Narrative Medical decision making narrative: The patient EKG showing sinus rhythm with a heart rate of [address] elevation or depression there is some T wave inversion in lead aVL which is not new compared to old EKGs The patient CBC and chemistry showed no acute pathology but her troponin was elevated although trending down from the last time she was here Right now the patient still have no complaint her blood pressure is 146 systolic The plan is to repeat the troponin if it is negative the patient will be discharged back home with no further evaluation pt care will be transferred to Dr. Romeo for further evaluation of the troponin result Lab Data Labs: Lab Results 07/01/24 Range/Units 17:35 WBC 9.1 (4.0-11.0) 10^3/uL RBC 4.68 (4.20-5.40) 10^6/uL Hgb 12.8 (12.0-16.0) g/dL Hct 39.7 (36.0-48.0) % MCV 84.8 (81.0-99.0) fL MCH 27.4 (26.7-34.0) pg MCHC 32.2 (29.9-35.2) g/dL RDW 15.3 H (11.0-15.0) % Plt Count 282 (150-450) 10^3/uL MPV 10.5 (9.5-13.5) fL Neut % (Auto) 63.4 (43.0-75.0) % Lymph % (Auto) 27.9 (20.5-60.0) % [place] % (Auto) 6.1 (1.7-12.0) % Eos % (Auto) 1.9 (0.9-7.0) % Baso % (Auto) 0.4 (0.2-2.0) % Neut # (Auto) 5.8 (1.4-6.5) 10^3/uL Lymph # (Auto) 2.6 (1.2-3.8) 10^3/uL [place] # (Auto) 0.6 (0.3-0.8) 10^3/uL Eos # (Auto) 0.2 (0.0-0.7) 10^3/uL Baso # (Auto) 0.0 (0.0-0.1) 10^3/uL Abs Immat Gran (auto) 0.03 (0.00-0.03) 10^3/uL Imm/Tot Granulo (auto) 0.3 (0.0-0.5) % Sodium 138 (136-145) mmol/L Potassium 3.4 L (3.5-5.1) mmol/L Chloride 103 (98-107) mmol/L Carbon Dioxide 27.3 (21.0-32.0) mmol/L Anion Gap 11.1 BUN 17.0 (7.0-18.0) mg/dL Creatinine 1.16 H (0.55-1.02) mg/dL Est GFR ( Amer) 58 L (>=60) Est GFR (Non-Af Amer) 48 L (>=60) BUN/Creatinine Ratio 14.7 Glucose 116 H (74-106) mg/dL Calcium 8.7 (8.5-10.1) mg/dL Total Bilirubin 0.4 (0.2-1.0) mg/dL AST 26 (15-37) U/L ALT 54 (14-59) U/L Alkaline Phosphatase 93 (46-116) U/L Troponin I High Sens 85.2 H* (4.0-51.3) pg/mL Total Protein 7.0 (6.4-8.2) g/dL Albumin 3.3 L (3.4-5.0) g/dL Globulin 3.7 g/dL Albumin/Globulin Ratio 0.9 Discharge Plan Discharge Patient Disposition: Still a Patient
[2024-07-01 17:56] LABS: Basophils Percent Auto 0.4 % (0.2-2.0); Eosinophils Absolute Auto 0.2 10^3/uL (0.0-0.7); Eosinophils Percent Auto 1.9 % (0.9-7.0); Hematocrit 39.7 % (36.0-48.0); Hemoglobin 12.8 g/dL (12.0-16.0); Immature Granulocytes Abs Auto 0.03 10^3/uL (0.00-0.03); Immature Granulocytes Pct Auto 0.3 % (0.0-0.5); Lymphocytes Absolute Auto 2.6 10^3/uL (1.2-3.8); Lymphocytes Percent Auto 27.9 % (20.5-60.0); Mean Corpuscular HGB Conc 32.2 g/dL (29.9-35.2); Mean Corpuscular Hemoglobin 27.4 pg (26.7-34.0); Mean Corpuscular Volume 84.8 fL (81.0-99.0); Mean Platelet Volume 10.5 fL (9.5-13.5); Monocytes Absolute Auto 0.6 10^3/uL (0.3-0.8); Monocytes Percent Auto 6.1 % (1.7-12.0); Neutrophils Absolute Auto 5.8 10^3/uL (1.4-6.5); Neutrophils Percent Auto 63.4 % (43.0-75.0); Platelet Count 282 10^3/uL (150-450); Red Blood Count 4.68 10^6/uL (4.20-5.40); Red Cell Distribution Width 15.3 % (11.0-15.0); White Blood Count 9.1 10^3/uL (4.0-11.0)
[2024-07-01 18:07] LABS: Anion Gap 11.1
[2024-07-01 18:10] LABS: Alanine Aminotransferase 54 U/L (14-59); Albumin Globulin Ratio 0.9; Albumin Level 3.3 g/dL (3.4-5.0); Alkaline Phosphatase 93 U/L (46-116); Aspartate Amino Transferase 26 U/L (15-37); BUN Creatinine Ratio 14.7; Bilirubin Total 0.4 mg/dL (0.2-1.0); Calcium 8.7 mg/dL (8.5-10.1); Carbon Dioxide 27.3 mmol/L (21.0-32.0); Chloride 103 mmol/L (98-107); Estimated GFR (African America 58 (>=60); Estimated GFR (Non-African Ame 48 (>=60); Globulin 3.7 g/dL; Glucose 116 mg/dL (74-106); Potassium 3.4 mmol/L (3.5-5.1); Sodium 138 mmol/L (136-145)
[2024-07-01 18:11] LABS: Troponin I High Sensitivity 85.2 pg/mL (4.0-51.3)
[2024-07-01 19:36] LABS: Troponin I High Sensitivity 82.8 pg/mL (4.0-51.3)
[2024-07-01] MEDS: HYDRALAZINE HCL 20 MG/ML VIAL 5 MG IVP (19:47)
[2024-07-01] MEDS: QUETIAPINE FUMARATE 25 MG TABLET 50 MG PO (20:53)
[2024-07-01] MEDS: METFORMIN HCL 500 MG TAB.ER.24H PO (20:53)
== END 2024-07-01 21:39 | disposition home or self-care (01) ==
PROVIDERS: Emergency Medicine; Emergency Provider Internal Medicine; PCP Family Medicine
DX: F41.9 Anxiety disorder, unspecified (principal); I10 Essential (primary) hypertension; Z95.5 Presence of coronary angioplasty implant and graft
CPT/HCPCS: 36415; 80053; 84484; 85025; 93005; 96374; 99285; J0360

== ENCOUNTER 2024-07-11 00:14 | Emergency (ER) | payer MEDICAID, SELFPAY ==
[2024-07-11] VITALS (58 sets, daily range): BP systolic 85–194; BP diastolic 51–98; PULSE 56–91; TEMP 36.6; O2SAT 92–99; BMI 36.8
--- NOTE | 2024-07-11 00:25 | XR_ITS ---
The [address] [address] Patient Name: MILAN RASMUSSEN MRN: [id number] date: 1965 Sex: F Assigned Patient Location: ER Current Patient Location: ED.MAIN Accession/Order Number: [id number] Exam Date: 07/11/2024 00:46 Report Date: 07/11/2024 03:09 At the request of: JOSE BETANCUR Procedure: XR chest 1V SINGLE VIEW CHEST: 07/11/2024 12:46 AM EDT CLINICAL HISTORY:Chest pain COMPARISONS: 06/29/2024 TECHNIQUE: Single frontal view of the chest, utilizing portable technique. Portable radiography should be considered a technically compromised study. Strongly consider dedicated PA and lateral chest radiographs, as clinically indicated. FINDINGS: LINES AND TUBES: Cardiac monitoring leads and wires overlie the patient. CARDIAC SILHOUETTE: Within normal limits. MEDIASTINAL AND HILAR CONTOUR: Within normal limits. PULMONARY PARENCHYMA AND PLEURA: No consolidation, edema, effusion, or pneumothorax. OSSEOUS STRUCTURES:Nothing significant. OTHER COMMENTS:None. XR/XR chest 1V IMPRESSION: Stable chest, with no acute radiographic findings. This report was generated with voice recognition software. Effort has been made to ensure accuracy of this report, however, occasional wording errors may persist. Please contact our office with any questions. Electronically authenticated by: SAE CM Date: 07/11/2024 03:09
--- NOTE | 2024-07-11 00:25 | ECG_ITS ---
The [facility] Test Date: 2024-07-11 Pat Name: MILAN RASMUSSEN Department: Room: - Gender: Female [employer]: : 1965 Requested By: KENDRA MORAN Order Number: [id number] Reading MD: AMBER MAN Measurements Intervals [place] Rate: 62 P: 53 PA: 172 QRS: 19 QRSD: 94 T: 140 QT: 398 QTc: 402 Interpretive Statements 1100 Sinus rhythm 5234 Left ventricular hypertrophy with repolarization abnormality 9150 abnormal ECG Electronically Signed On 07-11-2024 6:41:59 EDT by AMBER MAN
--- NOTE | 2024-07-11 00:26 | ED_ITS ---
HPI - Chest Pain General Chief Complaint: Chest Pain Stated Complaint: chest pain Time Seen by Provider: 07/11/24 00:18 Source: patient Mode of arrival: walk-in Limitations: no limitations History of Present Illness HPI narrative: 59-year-old female presents for chest pain. It is in the lower sternal area and it woke her up from sleep 1 to 2 hours ago. It does not seem to radiate and she is not complaining of shortness of breath or nausea. She had a cardiac stent placed 10 days ago at [facility] and this is the first time she has had pain since then. She did not have any nitroglycerin at home to take and she has been taking all of her prescribed medications as instructed. Related Data Home Medications ?Medication ?Instructions ?Recorded ?Confirmed metformin 500 mg tablet 500 mg PO BID 04/21/24 07/11/24 aspirin 81 mg capsule 81 mg PO DAILY 04/22/24 07/11/24 furosemide 20 mg tablet (Lasix) 20 mg PO DAILY 04/22/24 07/11/24 clonidine HCl 0.1 mg tablet 0.1 mg PO Q12H 06/13/24 07/11/24 losartan 50 mg tablet 50 mg PO DAILY 06/29/24 07/11/24 quetiapine 25 mg tablet 50 mg PO BEDTIME 06/29/24 07/11/24 carvedilol 25 mg tablet 25 mg PO BID 07/01/24 07/11/24 clopidogrel 75 mg tablet 75 mg PO DAILY 07/01/24 07/11/24 lorazepam 0.5 mg tablet (Ativan) 0.5 mg PO Q6H PRN anxiety 07/01/24 07/11/24 rosuvastatin 40 mg sprinkle capsule 40 mg PO DAILY 07/01/24 07/11/24 Previous Rx's ?Medication ?Instructions ?Recorded pantoprazole 40 mg tablet,delayed 40 mg PO DAILY #30 tabs 06/29/24 release (Protonix) Allergies Allergy/AdvReac Type Severity Reaction Status Date / Time amlodipine Allergy Mild Headache Verified 07/11/24 00:21 alprazolam [From Xanax] AdvReac Severe Watery Eye Verified 07/11/24 00:21 Review of Systems ROS Narrative A ten point review of systems is negative except as noted above. [facility] Medical History (Updated 07/11/24 @ 01:41 by Juancarlos Long MD) Hypokalemia ?E87.6 - Hypokalemia (ICD-10) Hypertension, uncontrolled ?I10 - Essential (primary) hypertension (ICD-10) Chest pain ?R07.9 - Chest pain, unspecified (ICD-10) NSTEMI (non-ST elevated myocardial infarction) ?I21.4 - Non-ST elevation (NSTEMI) myocardial infarction (ICD-10) Shortness of breath ?R06.02 - Shortness of breath (ICD-10) Headache ?R51.9 - Headache, unspecified (ICD-10) Elevated d-dimer ?R79.89 - Other specified abnormal findings of blood chemistry (ICD-10) Hypertensive emergency ?I16.1 - Hypertensive emergency (ICD-10) Uncontrolled hypertension ?I10 - Essential (primary) hypertension (ICD-10) Irritable bowel syndrome ?K58.9 - Irritable bowel syndrome without diarrhea (ICD-10) H/O nephrolithotomy with removal of calculi ?Z98.890 - Other specified postprocedural states (ICD-10) ?Z87.442 - Personal history of urinary calculi (ICD-10) Kidney stone ?N20.0 - Calculus of kidney (ICD-10) Sepsis ?A41.9 - Sepsis, unspecified organism (ICD-10) H/O angiography ?Z92.89 - Personal history of other medical treatment (ICD-10) Lung nodule ?R91.1 - Solitary pulmonary nodule (ICD-10) Anxiety ?F41.9 - Anxiety disorder, unspecified (ICD-10) HTN (hypertension) ?I10 - Essential (primary) hypertension (ICD-10) Diabetes ?E11.9 - Type 2 diabetes mellitus without complications (ICD-10) TIA (transient ischemic attack) ?G45.9 - Transient cerebral ischemic attack, unspecified (ICD-10) Surgical History (Updated 04/22/24 @ 01:20 by Stalin Kevin) History of appendectomy ?Z90.49 - Acquired absence of other specified parts of digestive tract (ICD- 10) H/O tubal ligation ?Z98.51 - Tubal ligation status (ICD-10) History of cholecystectomy ?Z90.49 - Acquired absence of other specified parts of digestive tract (ICD- 10) Family History (Updated 04/22/24 @ 01:15 by Stlain Kevin) Mother Family history of cancer Father MVA (motor vehicle accident) Brother Family history of stroke Social History (Updated 04/22/24 @ 01:26 by Stalin Kevin) Within the past year, how often did you have a drink containing alcohol: never Within the past year, how often did you have six or more drinks on one occasion: never Score interpretation: A score less than 3 is consistent with normal alcohol consumption. Smoking status: Former smoker Second hand tobacco smoke exposure: No Non-prescribed substance use: denies use Previous occupational history: no Known occupational exposures/hazards: No Highest level of school completed/degree received: high school graduate Do you want help with school or training: No Are you now , , , , never or living with a partner: In a typical week, how many times do you talk on the telephone with family, friends, or neighbors: 3 or more times per week How often do you get together with friends or relatives: 3 or more times per week How often do you attend nondenominational or restorationism services: never Do you belong to any clubs or organizations such as nondenominational groups unions, fraternal or athletic groups, or school groups: no Total score: 1 Score interpretation: A score of less than or equal to 1 indicates the most socially isolated. Little interest or pleasure in doing things: not at all Feeling down, depressed, or hopeless: not at all Feel stressed/tense/nervous/anxious/difficulty sleeping: not at all Gender Identity: female Exam Narrative Exam Narrative: Nurses note and vital signs reviewed and patient is not hypoxic. General: The patient appears in no acute distress Skin: Warm, dry, no pallor noted. There is no rash noted. Head: Normocephalic, atraumatic Eye: Normal conjunctiva, no drainage Ears, Nose, Mouth, and Throat: oral mucosa is moist. Nares patent. Cardiovascular: Regular Rate and Rhythm, not tachycardia Respiratory: Patient is in no distress, no accessory muscle use, lungs are clear to auscultation, no wheezing, rales or rhonchi Back: non-tender GI: Soft and nontender Musculoskeletal: The patient has no evidence of calf tenderness, no pitting edema, symmetrical pulses noted bilaterally Neurological: A&O, normal speech Psychiatric: Cooperative Constitutional Vital Signs, click to edit/add: Last Vital Signs Temp 98 F 07/11/24 00:16 Pulse 56 L 07/11/24 01:20 Resp 18 07/11/24 01:20 BP 138/63 07/11/24 01:15 Pulse Ox 97 07/11/24 01:20 O2 Del Method Room Air 07/11/24 00:16 Course Vital Signs Vital signs: Vital Signs Temperature 98 F 07/11/24 00:16 Pulse Rate 62 07/11/24 00:16 Respiratory Rate 18 07/11/24 00:16 Blood Pressure 129/98 H 07/11/24 00:16 Pulse Oximetry 96 07/11/24 00:16 Oxygen Delivery Method Room Air 07/11/24 00:16 Temperature 98 F 07/11/24 00:16 Pulse Rate 56 L 07/11/24 01:20 Respiratory Rate 18 07/11/24 01:20 Blood Pressure 138/63 07/11/24 01:15 Pulse Oximetry 97 07/11/24 01:20 Oxygen Delivery Method Room Air 07/11/24 00:16 MDM - Chest Pain MDM Narrative Medical decision making narrative: The patient presents with chest pain 11 days after a stent was placed. Her troponin is negative but she has new EKG changes compared to an EKG taken the day after her stent was placed. The stent was placed on June 30 and the recent EKG was performed on July 01. Today she has flipped T waves laterally and some slight ST depression in V6. There is no ST elevation. Case discussed with Dr. Prajapati who requests transfer to [facility]. This is being accomplished and she was started on IV heparin. She is hemodynamically stable and agreeable for transfer. Treatment diagnosis and disposition were discussed with the patient. Differential Diagnosis Differential diagnosis: Likely pneumothorax, unstable angina pectoris, atypical chest pain, st elevation myocardial infarction and other (NSTEMI) Lab Data Attestation: I reviewed the patient's lab results. Labs: Lab Results 07/11/24 Range/Units 00:28 WBC 8.5 (4.0-11.0) 10^3/uL RBC 4.51 (4.20-5.40) 10^6/uL Hgb 12.2 (12.0-16.0) g/dL Hct 38.3 (36.0-48.0) % MCV 84.9 (81.0-99.0) fL MCH 27.1 (26.7-34.0) pg MCHC 31.9 (29.9-35.2) g/dL RDW 14.5 (11.0-15.0) % Plt Count 255 (150-450) 10^3/uL MPV 10.4 (9.5-13.5) fL Neut % (Auto) 56.3 (43.0-75.0) % Lymph % (Auto) 31.6 (20.5-60.0) % [place] % (Auto) 7.7 (1.7-12.0) % Eos % (Auto) 3.4 (0.9-7.0) % Baso % (Auto) 0.9 (0.2-2.0) % Neut # (Auto) 4.8 (1.4-6.5) 10^3/uL Lymph # (Auto) 2.7 (1.2-3.8) 10^3/uL [place] # (Auto) 0.7 (0.3-0.8) 10^3/uL Eos # (Auto) 0.3 (0.0-0.7) 10^3/uL Baso # (Auto) 0.1 (0.0-0.1) 10^3/uL Abs Immat Gran (auto) 0.01 (0.00-0.03) 10^3/uL Imm/Tot Granulo (auto) 0.1 (0.0-0.5) % Sodium 140 (136-145) mmol/L Potassium 3.3 L (3.5-5.1) mmol/L Chloride 103 (98-107) mmol/L Carbon Dioxide 31.6 (21.0-32.0) mmol/L Anion Gap 8.7 BUN 18.0 (7.0-18.0) mg/dL Creatinine 1.42 H (0.55-1.02) mg/dL Est GFR ( Amer) 46 L (>=60) Est GFR (Non-Af Amer) 38 L (>=60) BUN/Creatinine Ratio 12.7 Glucose 112 H (74-106) mg/dL Calcium 9.0 (8.5-10.1) mg/dL Troponin I High Sens 8.4 (4.0-51.3) pg/mL Imaging Data Chest x-ray: My impression: No acute findings ECG Data Attestation: I personally reviewed and interpreted this ECG as follows: (EKG on my interpretation shows sinus rhythm with a rate of 62 and flipped T waves laterally with some slight ST depression in V6. This is new since July 01.) Heart Score History: Highly Suspicious ECG: NS Repolarization Age: >45-<65 years Risk Factors: >3 Risk Factors/ HX of CAD:2 Troponin: <Normal Limit Total Heart Score Recommendations & Risks:: 6 Critical Care Time Critical Care Time Critical Care Time: Yes Total Critical Care Time: 35 Attestation: Due to the high probability of sudden and clinically significant deterioration in the patient's condition he/she required the highest level of my preparedness to intervene urgently I provided critical care time including documentation time, medication orders and management, reevaluation, vital sign assessment, ordering and reviewing of lab tests, ordering and reviewing of x-ray studies, and admission orders. Aggregate critical care time is 35 minutes including only time during which I was engaged in work directly related to his/her care and did not include time spent treating other patients simultaneously. Discharge Plan Discharge Chief Complaint: Chest Pain Clinical Impression: Chest pain, Acute electrocardiogram changes Patient Disposition: [facility] Time of Disposition Decision: 01:41 Discharge Location: The [facility] Condition: Good Mode of Transportation: EMS
[2024-07-11 00:34] LABS: Basophils Absolute Auto 0.1 10^3/uL (0.0-0.1); Basophils Percent Auto 0.9 % (0.2-2.0); Eosinophils Absolute Auto 0.3 10^3/uL (0.0-0.7); Eosinophils Percent Auto 3.4 % (0.9-7.0); Hematocrit 38.3 % (36.0-48.0); Hemoglobin 12.2 g/dL (12.0-16.0); Immature Granulocytes Abs Auto 0.01 10^3/uL (0.00-0.03); Immature Granulocytes Pct Auto 0.1 % (0.0-0.5); Lymphocytes Absolute Auto 2.7 10^3/uL (1.2-3.8); Lymphocytes Percent Auto 31.6 % (20.5-60.0); Mean Corpuscular HGB Conc 31.9 g/dL (29.9-35.2); Mean Corpuscular Hemoglobin 27.1 pg (26.7-34.0); Mean Corpuscular Volume 84.9 fL (81.0-99.0); Mean Platelet Volume 10.4 fL (9.5-13.5); Monocytes Absolute Auto 0.7 10^3/uL (0.3-0.8); Monocytes Percent Auto 7.7 % (1.7-12.0); Neutrophils Absolute Auto 4.8 10^3/uL (1.4-6.5); Neutrophils Percent Auto 56.3 % (43.0-75.0); Platelet Count 255 10^3/uL (150-450); Red Blood Count 4.51 10^6/uL (4.20-5.40); Red Cell Distribution Width 14.5 % (11.0-15.0); White Blood Count 8.5 10^3/uL (4.0-11.0)
[2024-07-11] MEDS: ASPIRIN 81 MG TAB.CHEW 324 MG PO (00:36)
[2024-07-11] MEDS: NITROGLYCERIN 0.4 MG BOTTLE SL (00:36)
[2024-07-11 00:45] LABS: Anion Gap 8.7; BUN Creatinine Ratio 12.7; Carbon Dioxide 31.6 mmol/L (21.0-32.0); Chloride 103 mmol/L (98-107); Estimated GFR (African America 46 (>=60); Estimated GFR (Non-African Ame 38 (>=60); Glucose 112 mg/dL (74-106); Potassium 3.3 mmol/L (3.5-5.1); Sodium 140 mmol/L (136-145)
[2024-07-11 00:54] LABS: Troponin I High Sensitivity 8.4 pg/mL (4.0-51.3)
[2024-07-11] MEDS: 0.9 % SODIUM CHLORIDE 500 ML IV (01:22)
--- OUTSIDE RECORDS SUMMARY | 2024-07-11 01:50 | XMS_ITS | CCD ---
Author Organization [facility] CliniSysd Care Team Providers Care Wire Hanger Name Role Phone Kendra Murillo Primary Care Physician [phone] Umm MARTÍNEZ Attending Unavailable NILL, Umm Michael [...] Unavailable VIMAL, DR ADELIA Medrano Consulting Unavailable HORANI, NONA Referring Unavailable PIRKL, FELECIA Referring Unavailable HORANI, NONA Referring Unavailable HOY KENDRA Referring Unavailable HORANI, NONA Admitting Unavailable HORANI, NONA Attending Unavailable BIJAN MITCHELL Attending Unavailable GOMEZ JAY Attending Unavailable HORANI, NONA Referring Unavailable Allergies Allergy Classification Reported Allergen(s) Allergy Type Date of Onset Reaction(s) Facility (1 source) No Known Medication Allergies; 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: [No Known Medication Allergies] Propensity to adverse reactions (disorder) [facility] Repository (1 source) ALPRAZolam; 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: [ALPRAZOLAM] Drug Allergy 4 [facility] Repository (1 source) amLODIPine; 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: [AMLODIPINE] Drug Allergy 4 [facility] Repository (1 source) Lisinopril; 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: [LISINOPRIL] Drug Allergy 4 [facility] Repository Medications Current Medications Medication Drug [...] Classification Problem Date Documented Da te Episodic/Chronic Acute myocardial infarction (2 sources) Non-ST elevation (NSTEMI) myocardial infarction; 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: [Non-ST elevation (NSTEMI) myocardial infarction] Onset: 4 Chronic Anxiety disorders (7 sources) Anxiety; 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: [Panic disorder] Onset: 2 08-02-2019 Chronic Complication of device; implant or graft (2 sources) Retained ureteric stent 08-29-2019 Episodic Coronary atherosclerosis and other heart disease (3 sources) Coronary arteriosclerosis; 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: [Atherosclerotic heart disease of [place] coronary artery without angina pectoris] Onset: 3 [...] behavior of skin of chest 07-02-2021 Episodic Nonspecific chest pain (2 sources) Chest pain, unspecified; 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: [Chest pain, unspecified] Onset: 4 Episodic Other and ill-defined heart disease (2 [...] 12-20-2019 Episodic Other aftercare (1 source) 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 I am calling you to follow up on your stay with us and make sure all of your questions have been answered. You will be receiving a survey either electronic or via mail and we always aim to receive 9???s and 10???s. If there is any reason you feel as though you cannot give us these scores please indicate that now. 1. How have you been feeling since being discharged from the hospital? I feel really good. 2. Did you understand your discharge instructions when they were given to prior to leaving? Yes Were you given an opportunity to ask questions? Yes 3. While a patient in the hospital, was your call light answered in a timely manner? No 4. Do have access to all medications that were prescribed to you at discharge? Yes 5. How would you rate your overall stay on a scale of 0-10, 10 being the best experience you have ever had. 9 6. Do you have any further questions you would like to discuss? No Patient Name Aby Madrigal Date 07/03/24 [facility] Telephoneon 07-03-2024 Telephone [id number] Aby Madrigal 1965 F Date Provider Department Center 07/03/2024 Adela-EMMANUEL KIRKLAND [facility] Family History Problem Relation Age of Onset Lung cancer Mother No Known Problems Father Lung cancer Sister Family Status - Relation Status Age at Mother Father Sister Reason for Visit and Comments: Hospital Follow-up [832] Normal [facility] 30on 07-01-2024 30 The patient is Moderately Stable - Low risk of patient condition declining or worsening The patient's goals for the shift include comfort The clinical goals for the shift include VSS Problem: Pain - Adult Goal: Verbalizes/displays adequate comfort level or baseline comfort level Outcome: Progressing Problem: Safety - Adult Goal: Free from fall injury Outcome: Progressing Problem: Discharge Planning Goal: Discharge to home or other facility with appropriate resources Outcome: Progressing Problem: Chronic Conditions and Co-morbidities Goal: Patient's chronic conditions and co-morbidity symptoms are monitored and maintained or improved Outcome: Progressing Normal [facility] BASIC METABOLIC PANELon 06-22 Anion gap [Moles/Vol] 14 mmol/L Normal 7- [facility] Comment on above: Performed By: #### L [id number] #### [facility] (BEAKER) [address] [place] [address] Calcium [Mass/Vol] 8.2 mg/dL Low 8.6-10.3 [facility] Comment on above: Performed By: #### L [id number] #### [facility] (BEAKER) [address] [place] [address] Chloride [Moles/Vol] 106 mmol/L Normal 98-107 [facility] Comment on above: Performed By: #### L [id number] #### [facility] ([facility]) [address] [place] [address] CO2 [Moles/Vol] 25 mmol/L Normal 21-31 [facility] Comment on above: Performed By: #### L [id number] #### [facility] ([facility]) [address] [place] [address] Creatinine [Mass/Vol] 0.91 mg/dL Normal 0.60-1.20 [facility] Comment on above: Performed By: #### L [id number] #### [facility] ([facility]) [address] [place] [address] GLOMERULAR FILTRATION RATE ML/MIN/1.73 SQ M.PREDICTED 72.2 mL/min/1.73m*2 Normal >60.0 [facility] Comment on above: Result Comment: The [facility]???s estimated glomerular filtration rate (eGFR) will no longer include consideration of race in its calculation. The National Kidney Foundation???s eGFR Task Force developed new recommendations for the estimation of the glomerular filtration rate in the [place] They recommend immediate implementation of the new equation refit without the race variable in all laboratories because the calculation does not include race. In addition to not including race in the calculation and reporting, it included diversity in its development, and has acceptable performance characteristics and potential consequences that do not disproportionately affect any one group of individuals. Performed By: #### L [id number] #### [facility] ([facility]) [address] [place] [address] Glucose [Mass/Vol] 101 mg/dL High 70-100 [facility] Comment on above: Performed By: #### L [id number] #### [facility] ([facility]) [address] [place] [address] Potassium [Moles/Vol] 3.5 mmol/L Normal 3.5-5.1 [facility] Comment on above: Performed By: #### L [id number] #### [facility] ([facility]) [address] [place] [address] Sodium [Moles/Vol] 141 mmol/L Normal 136-145 [facility] Comment on above: Performed By: #### L [id number] #### [facility] ([facility]) [address] [place] [address] Urea nitrogen [Mass/Vol] 13 mg/dL Normal 7-25 [facility] Comment on above: Performed By: #### L [id number] #### [facility] ([facility]) [address] [place] [address] UREA NITROGEN/CREATININE (MASS RATIO) IN SER/PLAS 14.3 Normal [facility] Comment on above: Performed By: #### L [id number] #### [facility] ([facility]) [address] [place] [address] CBCon 07-01-2024 Erythrocyte distribution width (RBC) [Ratio] 15.4 % High 11.5-15.0 [facility] Comment on above: Performed By: #### L [id number] #### [facility] ([facility]) [address] [place] [address] ERYTHROCYTE MEAN CORPUSCULAR HEMOGLOBIN CONCENTRATION (G/DL) BY AUTOMATED 32.1 g/dL Normal 32.0-35.0 [facility] Comment on above: Performed By: #### L [id number] #### [facility] ([facility]) [address] [place] [address] Hematocrit (Bld) [Volume fraction] 38.6 % Normal 36.0-48.0 [facility] Comment on above: Performed By: #### L [id number] #### [facility] ([facility]) [address] [place] [address] Hemoglobin (Bld) [Mass/Vol] 12.4 g/dL Normal 12.0-15.0 [facility] Comment on above: Performed By: #### L [id number] #### [facility] ([facility]) [address] [place] [address] MCH (RBC) [Entitic mass] 26.9 pg Low 27.0-33.0 [facility] Comment on above: Performed By: #### L [id number] #### [facility] ([facility]) [address] [place] [address] MCV (RBC) [Entitic vol] 83.7 fL Normal 82.0-98.0 [facility] Comment on above: Performed By: #### L [id number] #### [facility] ([facility]) [address] [address] PLATELETS (10*3/UL) IN BLOOD AUTOMATED COUNT 238 10*3/uL Normal 150-400 [facility] Comment on above: Performed By: #### L [id number] #### [facility] ([facility]) [address] [place] [address] RBC (Bld) [#/Vol] 4.61 10*6/uL Normal 3.80-5.00 [facility] Comment on above: Performed By: #### L [id number] #### [facility] ([facility]) [address] [place] [address] WBC (Bld) [#/Vol] 7.04 10*3/uL Normal 4.00-10.60 [facility] Comment on above: Performed By: #### L [id number] #### [facility] ([facility]) [address] [address] LIPID PANELon 07-01-2024 CHOL/HDL 3.8 mg/dL Normal [facility] Comment on above: Performed By: #### L [id number] #### [facility] ([facility]) [address] [place] [address] Cholesterol [Mass/Vol] 128 mg/dL Normal 120-200 [facility] Comment on above: Performed By: #### L [id number] #### [facility]) [address] [place] [address] Magnesium [Mass/Vol] 87 mg/dL Normal 40-149 [facility] Comment on above: Result Comment: TRIG LYCERIDE REFERENCE RANGE: 20 YEARS AND OLDER CARDIOVASCULAR RISK LESS THAN 150 mg/dL LOW RISK 150 TO 199 mg/dL BORDERLINE RISK 200 mg/dL AND GREATER HIGH RISK Performed By: #### L [id number] #### [facility] ([facility]AKER) [address] [place] [address] Magnesium [Mass/Vol] 77 mg/dL Normal 0-160 [facility] Comment on above: Performed By: #### L [id number] #### [facility] ([facility]) [address] [place] [address] Magnesium [Mass/Vol] 34 mg/dL Normal 23-92 [facility] Comment on above: Performed By: #### L [id number] #### [facility] ([facility]) [address] [place] [address] NON HDL CHOL. (LDL+VLDL) 94 Normal [facility] Comment on above: Performed By: #### L [id number] #### [facility] ([facility]) [address] [address] TOTAL VLDL-C 17 mg/dL Normal 0-40 [facility] Comment on above: Performed By: #### L [id number] #### [facility] ([facility]) [address] [place] [address] MAGNESIUMon 07-01-2024 Magnesium [Mass/Vol] 2.0 mg/dL Normal 1.9-2.7 [facility] Comment on above: Performed By: #### L [id number] #### [facility] ([facility]) [address] [place] [address] NURSNOTEon 07-01-2024 NURSNOTE Discharge instructio ns given, reviewed, questions, answered, signed, copy received. Normal [facility] POCT GLUCOSE METER UNSOLICIT ED RESULTSon 07-01-2024 Glucose [Mass/Vol] 124 mg/dL High 70-105 [facility] Comment on above: Order Comment: Waive d Testing in the ED is performed under the ED CLIA certificate #[id number]. Result Comment: [email or web address] Performed By: #### L [id number] #### [facility] ([facility]) [address] [address] Glucose [Mass/Vol] 106 mg/dL High 70-105 [facility] Comment on above: Order Comment: Waive d Testing in the ED is performed under the ED CLIA certificate #[id number]. Result Comment: [email or web address] Performed By: #### L [id number] #### [facility] (JOSE) [address] [place] [address] TROPONIN Ion 07-01-2024 Troponin I.cardiac [Mass/Vol] 0.09 ng/mL High 0.00-0.04 [facility] Comment on above: Performed By: #### L [id number] ####[facility] (FAR[facility])[address] [place] [address] 30on 06-30-2024 30 The patient is Moderately Stable - Low risk of patient condition declining or worsening The patient's goals for the shift include comfort, rest The clinical goals for the shift include stable vitals, comfort Problem: Pain - Adult Goal: Verbalizes/displays adequate comfort level or baseline comfort level Outcome: Not Progressing Normal [facility] 30 Daily Case Managemen t Update Multidisciplinary rounds have been completed. Barriers to Discharge: Pending clinical course and improvement in clinical condition. Patient on heparin infusion. Plan for cardiac catheterization today per Cardiology. Patient underwent echocardiogram to assess cardiac function and regional wall motion. Adjusting medications for blood pressure control. Discharge plan is home when medically ready. Diet: Dietary Orders (From admission, onward) Start Ordered 06/30/24 1117 Regular Diet Heart Healthy/HTN, CABG,Stroke, (2gNA, low fat, low cholesterol) Diet effective now Question Answer Comment Room Service? Yes Fat restriction: Heart Healthy/HTN, CABG,Stroke, (2gNA, low fat, low cholesterol) 06/30/24 1116 Physician Expected Discharge Date: 07/02/2024 Discharge Delays: PT Six Click Score: 24 OT Six Click Score: PT Recommendations: OT Recommendations: New Consults: Normal [facility] 30 The patient is Moderately Stable - Low risk of patient condition declining or worsening The patient's goals for the shift include COMFORT The clinical goals for the shift include VSS Over the shift, the patient did not make progress toward the following goals. Barriers to progression include . Recommendations to address these barriers include . Normal [facility] ANTI-XA (HEPARIN LEVEL)on 08 -09-2024 HEPARIN UNFRACTIONATED (U/ML) IN PPP BY CHROMOGENIC METHOD 0.64 IU/mL Normal 0.3-0.7 [facility] Comment on above: Order Comment: Check anti-Xa level every 6 hours while on heparin infusion, or per protocol. Result Comment: [place] roxaban and Apixaban will interfere with the anti Xa assay used to monitor UFH and LMWH. Performed By: #### L [id number] ####[facility] ([facility])[address] [place] [address] BASIC METABOLIC PANELon 08-0 Anion gap [Moles/Vol] 11 mmol/L Normal 7-20 [facility] Comment on above: Performed By: #### L [id number] #### [facility] ([facility]) [address] [place] [address] Calcium [Mass/Vol] 8.3 mg/dL Low 8.6-10.3 [facility] Comment on above: Performed By: #### L [id number] #### [facility] ([facility]) [address] [place] [address] Chloride [Moles/Vol] 110 mmol/L High 98-107 [facility] Comment on above: Performed By: #### L [id number] #### [facility] ([facility]) [address] [place] [address] CO2 [Moles/Vol] 26 mmol/L Normal 21-31 [facility] Comment on above: Performed By: #### L [id number] #### [facility] ([facility]) [address] [place] [address] Creatinine [Mass/Vol] 0.81 mg/dL Normal 0.60-1.20 [facility] Comment on above: Performed By: #### L [id number] #### [facility] ([facility]) [address] [place] [address] GLOMERULAR FILTRATION RATE ML/MIN/1.73 SQ M.PREDICTED 83.1 mL/min/1.73m*2 Normal >60.0 [facility] Comment on above: Result Comment: The [facility]???s estimated glomerular filtration rate (eGFR) will no longer include consideration of race in its calculation. The National Kidney Foundation???s eGFR Task Force developed new recommendations for the estimation of the glomerular filtration rate in the [place] They recommend immediate implementation of the new equation refit without the race variable in all laboratories because the calculation does not include race. In addition to not including race in the calculation and reporting, it included diversity in its development, and has acceptable performance characteristics and potential consequences that do not disproportionately affect any one group of individuals. Performed By: #### L [id number] #### [facility] ([facility]) [address] [place] [address] Glucose [Mass/Vol] 110 mg/dL High 70-100 [facility] Comment on above: Performed By: #### L [id number] #### [facility] ([facility]) [address] [place] [address] Potassium [Moles/Vol] 3.7 mmol/L Normal 3.5-5.1 [facility] Comment on above: Performed By: #### L [id number] #### [facility] ([facility]) [address] [place] [address] Sodium [Moles/Vol] 143 mmol/L Normal 136-145 [facility] Comment on above: Performed By: #### L [id number] #### [facility] ([facility]) [address] [place] [address] Urea nitrogen [Mass/Vol] 10 mg/dL Normal 7-25 [facility] Comment on above: Performed By: #### L [id number] #### [facility] ([facility]) [address] [place] [address] UREA NITROGEN/CREATININE (MASS RATIO) IN SER/PLAS 12.3 Normal [facility] Comment on above: Performed By: #### L [id number] #### [facility] ([facility]) [address] [place] [address] CBCon 06-30-2024 Erythrocyte distribution width (RBC) [Ratio] 15.3 % High 11.5-15.0 [facility] Comment on above: Performed By: #### L [id number] #### [facility] ([facility]) [address] [place] [address] ERYTHROCYTE MEAN CORPUSCULAR HEMOGLOBIN CONCENTRATION (G/DL) BY AUTOMATED 31.3 g/dL Low 32.0-35.0 [facility] Comment on above: Performed By: #### L [id number] #### [facility] ([facility]) [address] [place] [address] Hematocrit (Bld) [Volume fraction] 36.7 % Normal 36.0-48.0 [facility] Comment on above: Performed By: #### L [id number] #### [facility] ([facility]) [address] [place] [address] Hemoglobin (Bld) [Mass/Vol] 11.5 g/dL Low 12.0-15.0 [facility] Comment on above: Performed By: #### L [id number] #### [facility] ([facility]) [address] [place] [address] MCH (RBC) [Entitic mass] 26.9 pg Low 27.0-33.0 [facility] Comment on above: Performed By: #### L [id number] #### [facility] ([facility]) [address] [place] [address] MCV (RBC) [Entitic vol] 85.7 fL Normal 82.0-98.0 [facility] Comment on above: Performed By: #### L [id number] #### [facility] ([facility]) [address] [place] [address] PLATELETS (10*3/UL) IN BLOOD AUTOMATED COUNT 243 10*3/uL Normal 150-400 [facility] Comment on above: Performed By: #### L [id number] #### [facility] ([facility]) [address] [place] [address] RBC (Bld) [#/Vol] 4.28 10*6/uL Normal 3.80-5.00 [facility] Comment on above: Performed By: #### L [id number] #### [facility] (BEAKER) [address] [place] [address] WBC (Bld) [#/Vol] 7.41 10*3/uL Normal 4.00-10.60 [facility] Comment on above: Performed By: #### L [id number] #### [facility] ([facility]) [address] [place] [address] CONSULTon 06-30-2024 CONSULT Cardiology Consult Note Reason for Consult: NSTEMI, transfer from [facility] HPI: Aby Madrigal, a 59 y.o. female patient, is transferred from [facility] for continuity of care. Past medical history includes: HTN History of TIA DMII HLD SURESH Overweight Patient reports that 3 days ago, she woke up in the mid of the night with indigestion, and a feeling fullness, but no pressure like chest pain. She presented to [facility], where she was found to be hypertensive. She was treated for hypertension, and then she started experiencing chest like indigestion, not relieved on nitroTab, associated with headache. Upon presentation to the ED, patient was hypertensive with SBP-199, troponin level 0.11, EKG showing LVH with no new ST T wave changes. Patient was seen and examined today morning. She was on heparin drip. BP is elevated at 180s SBP. Patient denies any chest pain, orthopnea/PND, lower extremity edema, palpitations, lightheadedness/dizzin ess, syncope. CT abdomen 2019: IMPRESSION- 1. Obstructing 7 x 12 mm stone in the distal LEFT ureter as described above with mild LEFT hydronephrosis, LEFT hydroureter and LEFT perinephric stranding. 2. Indeterminate 10 mm nodule in the RIGHT middle lobe. Consider PET/CT and or CT-guided biopsy for further characterization. 3. 3.5 cm LEFT adrenal mass is indeterminate. The lesion does not have density characteristics of an adenoma and metastasis cannot be excluded. Consider three-phase adrenal CT to assess enhancement characteristics. 4. Hepatomegaly and hepatic steatosis. Cardiology ROS: GENERAL: Denies fever, chills, night sweats, weight loss. CARDIOVASCULAR: Refer to HPI RESPIRATORY: Denies SOB, coughing, wheezing GI: Denies abdominal pain, nausea/vomiting. PSYCH: Denies anxiety. Past Medical History She has a past [...] Known Problems Father Lung cancer Sister Allergies Lisinopril, Norvasc [amlodipine], and Xanax [alprazolam] Medications Medications Prior to Admission Medication Sig Dispense Refill Last Dose aspirin 81 mg EC tablet Take 81 mg by mouth in the morning. 06/28/2024 cloNIDine (Catapres) 0.1 mg tablet Take 0.2 mg by mouth two times daily. 06/28/2024 Lasix 20 mg tablet Take 20 mg by mouth in the morning. 06/28/2024 LORazepam (Ativan) 0.5 mg tablet 1 to 2 tablets Orally QID PRN for 30 days 06/28/2024 losartan (Cozaar) 50 mg tablet Take 1 tablet (50 mg) by mouth in the morning. 90 tablet 3 06/28/2024 metFORMIN (Glucophage) 500 mg tablet Take 500 mg by mouth with breakfast and with evening meal. 06/28/2024 metoprolol tartrate (Lopressor) 100 mg tablet Take 100 mg by mouth in the morning and at bedtime. 06/28/2024 Protonix 40 mg EC tablet Take 40 mg by mouth if needed each day. 06/28/2024 QUEtiapine (SEROquel) 25 mg tablet Take 50 mg by mouth at bedtime. 06/28/2024 Last Recorded Vitals Patient Vitals for the past 24 hrs: BP Temp Temp src Pulse Resp SpO2 Height Weight 06/30/24 0500 -- -- -- -- -- -- -- 96.2 kg (212 lb) 06/30/24 0400 166/73 -- -- 66 14 96 % -- -- 06/30/24 0022 (!) 199/84 -- -- 71 12 98 % -- -- 06/30/24 0000 (!) 195/75 -- -- 71 19 96 % -- -- 06/29/24 2300 179/69 37 ???C (98.6 ???F) Temporal 70 16 97 % 1.6 m (5' 2.99 ) 96.2 kg (212 lb) Physical Examination: GENERAL: AOx3, in no acute distress. HEAD: Atraumatic, normocephalic. EYES: CINDY, EOMI. NECK: No JVD present. CARDIAC: RRR. No murmur, rubs, or gallops. RESPIRATORY: CTAB, no increased effort of breathing. ABDOMEN: Soft, nontender, nondistended. EXTREMITIES: No lower extremity edema, peripheral pulses are 2+ bilaterally. Relevant Lab Results Encounter Date: 06/29/24 ECG 12 lead Result Value Ventricular Rate 71 Atrial Rate 71 MA Interval 176 QRS DURATION 92 QT Interval 424 QTC CALCULATION(BAZETT) 460 P Benson 52 R-Benson 19 T Wave Benson 164 Impression Normal sinus rhythm Left ventricular hypertrophy with repolarization abnormality ( R in aVL , Robles product ) Abnormal ECG No previous ECGs available Lab Results Component Value Date TROPONINI 0.10 (H) 06/29/2024 No echocardiogram results found for the past 12 months No nuclear medicine results found for the past 12 months Relevant Imaging Results ECG 12 lead Normal sinu (more content not included)... Normal [facility] HPon 06-30-2024 H&P reviewed. The patient was examined and there are no changes to the H&P. 59 y.o. year old female with a PMHx significant for DM2, hypertension presents a direct mission from [facility] with a chief complaint of chest pain and SOB. Found to have NSTEMI. Plan to proceed with coronary angiography due to NSTEMI. Procedure was explained to patient at length and in detail. Risks, benefits, and alternatives were discussed. Patient is informed that risks of this invasive procedure include, but are not limited to, bleeding, hematoma, kidney injury, CVA, arrythmia requiring defibrillation, need for emergent open heart surgery, and . Patient understands these risks and wishes to proceed. Signed, Yris Oakley MD PGY-4 [employer] Pager: [phone] [facility] POCT GLUCOSE METER UNSOLICIT ED RESULTSon 06-30-2024 Glucose [Mass/Vol] 170 mg/dL High 70-105 [facility] Comment on above: Order Comment: Waive d Testing in the ED is performed under the ED CLIA certificate #[id number]. Result Comment: [email or web address] Performed By: #### L [id number] ####[facility] ([facility])[address] [place] [address] Glucose [Mass/Vol] 129 mg/dL High 70-105 [facility] Comment on above: Order Comment: Waive d Testing in the ED is performed under the ED CLIA certificate #[id number]. Result Comment: carolyn tcher Performed By: #### L [id number] #### [facility] ([facility]) [address] [place] [address] Glucose [Mass/Vol] 167 mg/dL High 70-105 [facility] Comment on above: Order Comment: Waive d Testing in the ED is performed under the ED CLIA certificate #[id number]. Result Comment: [email or web address] Performed By: #### L [id number] #### [facility] ([facility]) [address] [place] [address] TROPONIN Ion 06-30-2024 Troponin I.cardiac [Mass/Vol] 0.07 ng/mL High 0.00-0.04 [facility] Comment on above: Performed By: #### L [id number] #### [facility] ([facility]) [address] [place] [address] Troponin I.cardiac [Mass/Vol] 0.10 ng/mL High 0.00-0.04 [facility] Comment on above: Performed By: #### L [id number] ####[facility] ([facility])[address] [place] [address] Troponin I.cardiac [Mass/Vol] 0.11 ng/mL Critically high 0.00-0.04 [facility] Comment on above: Result Comment: M-TR OPONIN INITIAL CRITICAL HIGH; RESPUN AND RETESTED Performed By: #### L [id number] #### [facility] ([facility]) [address] [place] [address] 30on 06-29-2024 30 The patient is Moderately Stable - Low risk of patient condition declining or worsening The patient's goals for the shift include COMFORT The clinical goals for the shift include VSS Normal [facility] APTTon 06-29-2024 ACTIVATED PARTIAL THROMBOPLASTIN TIME IN PPP BY COAGULATION ASSAY 34.5 Seconds Normal 25.0-35.0 [facility] Comment on above: Order Comment: Basel ine aPTT before initiating heparin infusion. Result Comment: Clin ical significance of the APTT is questionable in the presence of heparin. Performed By: #### L [id number] #### [facility] ([facility]) [address] [place] [address] B-TYPE NATRIURETIC PEPTIDEon 06-29-2024 Natriuretic peptide B (Bld) [Mass/Vol] 222 pg/mL High 0-100 [facility] Comment on above: Performed By: #### L [id number] #### [facility] ([facility]) [address] [place] [address] CBC WITH AUTO DIFFERENTIALon 06-29-2024 Basophils (Bld) [#/Vol] 0.05 10*3/uL Normal 0.00-0.20 [facility] Comment on above: Performed By: #### L [id number] #### [facility] ([facility]) [address] [place] [address] Basophils/100 WBC (Bld) 0.6 % Normal 0.0-1.0 [facility] Comment on above: Performed By: #### L [id number] #### [facility] ([facility]) [address] [place] [address] Eosinophils (Bld) [#/Vol] 0.18 10*3/uL Normal 0.00-0.50 [facility] Comment on above: Performed By: #### L [id number] #### [facility] ([facility]) [address] [place] [address] Eosinophils/100 WBC (Bld) 2.1 % Normal 0.0-6.0 [facility] Comment on above: Performed By: #### L [id number] #### [facility] ([facility] [address] [place] [address] Erythrocyte distribution width (RBC) [Ratio] 14.9 % Normal 11.5-15.0 [facility] Comment on above: Performed By: #### L [id number] #### [facility] ([facility]) [address] [place] [address] ERYTHROCYTE MEAN CORPUSCULAR HEMOGLOBIN CONCENTRATION (G/DL) BY AUTOMATED 32.9 g/dL Normal 32.0-35.0 [facility] Comment on above: Performed By: #### L [id number] #### [facility] ([facility]) [address] [place] [address] Hematocrit (Bld) [Volume fraction] 35.9 % Low 36.0-48.0 [facility] Comment on above: Performed By: #### L [id number] #### [facility] ([facility]) [address] [place] [address] Hemoglobin (Bld) [Mass/Vol] 11.8 g/dL Low 12.0-15.0 [facility] Comment on above: Performed By: #### L [id number] #### [facility] ([facility]) [address] [place] [address] Immature granulocytes (Bld) [#/Vol] 0.03 10*3/uL Normal 0.00-0.20 [facility] Comment on above: Performed By: #### L [id number] #### [facility] ([facility]) [address] [place] [address] Immature granulocytes/100 WBC (Bld) 0.3 % Normal 0.0-1.0 [facility] Comment on above: Performed By: #### L [id number] #### [facility] ([facility]) [address] [place] [address] Lymphocytes (Bld) [#/Vol] 2.02 10*3/uL Normal 1.20-4.00 [facility] Comment on above: Performed By: #### L [id number] #### [facility] ([facility]) [address] [place] [address] Lymphocytes/100 WBC (Bld) 23.5 % Normal 20.0-45.0 [facility] Comment on above: Performed By: #### L [id number] #### [facility] ([facility]) [address] [place] [address] MCH (RBC) [Entitic mass] 27.2 pg Normal 27.0-33.0 [facility] Comment on above: Performed By: #### L [id number] #### [facility] ([facility]) [address] [place] [address] MCV (RBC) [Entitic vol] 82.7 fL Normal 82.0-98.0 [facility] Comment on above: Performed By: #### L [id number] #### [facility] ([facility]) [address] [place] [address] Monocytes (Bld) [#/Vol] 0.56 10*3/uL Normal 0.10-1.00 [facility] Comment on above: Performed By: #### L [id number] #### [facility] ([facility]) [address] [place] [address] Monocytes/100 WBC (Bld) 6.5 % Normal 5.0-12.0 [facility] Comment on above: Performed By: #### L [id number] #### [facility] ([facility]) [address] [place] [address] Neutrophils (Bld) [#/Vol] 5.74 10*3/uL Normal 1.60-7.60 [facility] Comment on above: Performed By: #### L [id number] #### [facility] ([facility]) [address] [place] [address] Neutrophils/100 WBC (Bld) 67.0 % Normal 40.0-72.0 [facility] Comment on above: Performed By: #### L [id number] #### [facility] ([facility]) [address] [place] [address] NRBC (PER 100 WBCS) BY AUTOMATED COUNT 0.0 % Normal 0 [facility] Comment on above: Performed By: #### L [id number] #### [facility] ([facility]) [address] [place] [address] PLATELETS (10*3/UL) IN BLOOD AUTOMATED COUNT 233 10*3/uL Normal 150-400 [facility] Comment on above: Performed By: #### L [id number] #### [facility] ([facility]) [address] [place] [address] RBC (Bld) [#/Vol] 4.34 10*6/uL Normal 3.80-5.00 [facility] Comment on above: Performed By: #### L [id number] #### [facility] ([facility]) [address] [place] [address] WBC (Bld) [#/Vol] 8.58 10*3/uL Normal 4.00-10.60 [facility] Comment on above: Performed By: #### L [id number] #### [facility] ([facility]) [address] [place] [address] COMPREHENSIVE METABOLIC PANE Alec 06-29-2024 Albumin [Mass/Vol] 3.8 g/dL Normal 3.5-5.7 [facility] Comment on above: Performed By: #### L [id number] ####[facility] ([facility])[address] [place] [address] ALP [Catalytic activity/Vol] 64 U/L Normal 34-104 [facility] Comment on above: Performed By: #### L [id number] ####[facility] ([facility])[address] [place] [address] ALT [Catalytic activity/Vol] 35 U/L Normal 7-52 [facility] Comment on above: Performed By: #### L [id number] ####[facility] ([facility])[address] [place] [address] Anion gap [Moles/Vol] 12 mmol/L Normal 7-20 [facility] Comment on above: Performed By: #### L [id number] ####[facility] ([facility])[address] [place] [address] AST [Catalytic activity/Vol] 21 U/L Normal 13-39 [facility] Comment on above: Performed By: #### L [id number] ####[facility] ([facility])[address] [place] [address] Bilirubin [Mass/Vol] 0.4 mg/dL Normal 0.3-1.0 [facility] Comment on above: Performed By: #### L [id number] ####[facility] ([facility])[address] [place] [address] Calcium [Mass/Vol] 8.5 mg/dL Low 8.6-10.3 [facility] Comment on above: Performed By: #### L [id number] ####[facility] ([facility])[address] [place] [address] Chloride [Moles/Vol] 112 mmol/L High 98-107 [facility] Comment on above: Performed By: #### L [id number] ####[facility] ([facility])[address] [place] [address] CO2 [Moles/Vol] 22 mmol/L Normal 21-31 [facility] Comment on above: Performed By: #### L [id number] ####[facility] ([facility])[address] [place] [address] Creatinine [Mass/Vol] 0.92 mg/dL Normal 0.60-1.20 [facility] Comment on above: Performed By: #### L [id number] ####[facility] ([facility])[address] [place] [address] GLOMERULAR FILTRATION RATE ML/MIN/1.73 SQ M.PREDICTED 71.3 mL/min/1.73m*2 Normal >60.0 [facility] Comment on above: Result Comment: The [facility]???s estimated glomerular filtration rate (eGFR) will no longer include consideration of race in its calculation. The National Kidney Foundation???s eGFR Task Force developed new recommendations for the estimation of the glomerular filtration rate in the [place] They recommend immediate implementation of the new equation refit without the race variable in all laboratories because the calculation does not include race. In addition to not including race in the calculation and reporting, it included diversity in its development, and has acceptable performance characteristics and potential consequences that do not disproportionately affect any one group of individuals. Performed By: #### L [id number] ####[facility] ([facility])[address] [place] [address] Glucose [Mass/Vol] 108 mg/dL High 70-100 [facility] Comment on above: Performed By: #### L [id number] ####[facility] ([facility])[address] [place] [address] Potassium [Moles/Vol] 3.7 mmol/L Normal 3.5-5.1 [facility] Comment on above: Performed By: #### L [id number] ####[facility] ([facility])[address] [place] [address] Protein [Mass/Vol] 6.1 g/dL Normal 6.0-8.3 [facility] Comment on above: Performed By: #### L [id number] ####[facility] ([facility])[address] [place] [address] Sodium [Moles/Vol] 142 mmol/L Normal 136-145 [facility] Comment on above: Performed By: #### L [id number] ####[facility] ([facility])[address] [place] [address] Urea nitrogen [Mass/Vol] 11 mg/dL Normal 7-25 [facility] Comment on above: Performed By: #### L [id number] ####[facility] ([facility])[address] [place] [address] UREA NITROGEN/CREATININE (MASS RATIO) IN SER/PLAS 12.0 Normal [facility] Comment on above: Performed By: #### L [id number] ####[facility] ([facility])[address] [place] [address] MAGNESIUMon 06-29-2024 Magnesium [Mass/Vol] 1.7 mg/dL Low 1.9-2.7 [facility] Comment on above: Performed By: #### L [id number] ####[facility] ([facility])[address] [place] [address] PHOSPHORUSon 06-29-2024 Magnesium [Mass/Vol] 2.9 mg/dL Normal 2.5-5.0 [facility] Comment on above: Performed By: #### L [id number] ####[facility] ([facility])[address] [place] [address] PROTIME-INRon 06-29-2024 INR IN PPP BY COAGULATION ASSAY 0.99 Normal 0.90-1.10 [facility] Comment on above: Result Comment: ACCC P RECOMMENDED INR FOR WARFARIN THERAPY CONDITION INR PROPHYLAXIS OF VENOUS THROMBOSIS 2-3 (HIGH-RISK SURGERY) TREATMENT OF VENOUS THROMBOSIS 2-3 TREATMENT OF PULMONARY EMBOLISM 2-3 PREVENTION OF SYSTEMIC EMBOLISM: 2-3 ACUTE MYOCARDIAL INFARCTION TISSUE HEART VALVES VALVULAR HEART DISEASE ATRIAL FIBRILLATION RECURRENT SYSTEMIC EMBOLISM MECHANICAL HEART VALVE 2.5-3.5 FROM: ORAL ANTICOAGULANTS. MECHANISM OF ACTION, CLINICAL EFFECTIVENESS, AND OPTIMAL THERAPEUTIC RANGE. CHEST 1995;108:231S-246S. Performed By: #### L [id number] #### [facility] ([facility]) [address] [place] [address] PROTHROMBIN TIME (PT) IN PPP BY COAGULATION ASSAY 13.1 Seconds Normal 12.3-14.8 [facility] Comment on above: Performed By: #### L [id number] #### [facility] ([facility]) [address] [place] [address] TROPONIN Ion 06-29-2024 Troponin I.cardiac [Mass/Vol] 0.10 ng/mL High 0.00-0.04 [facility] Comment on above: Performed By: #### L [id number] ####[facility] ([facility])[address] [place] [address] Office Visiton 06-21-2024 Follow-up visit [id number] Aby Madrigal S 1965 [facility] Provider Department Center 06/21/2024 GOMEZ KENDALL RIAZ [place] Family History Problem Relation Age of Onset Lung cancer Mother No Known Problems Father Lung cancer Sister Family Status - Relation Status Age at Mother Father Sister Level of Service:73863 MA OFFICE/OUTPATIENT ESTABLISHED MOD MDM 30 MIN Normal [facility] Office Visiton 05-26-2024 Follow-up visit [id number] Sanjana Madrigalty S 1965 Provider Department Center 05/26/2024 BIJAN LAWLER RIAZ [place] Family History Problem Relation Age of Onset Lung cancer Mother No Known Problems Father Lung cancer Sister Family Status - Relation Status Age at Mother Father Sister Level of Service:18164 MA OFFICE/OUTPATIENT NEW MODERATE MDM 45 MINUTES Normal [facility] Outside Colonoscopyon 2022 Outside Colonoscopy [id number] 0CD:127 Normal [facility] Reminderson 11-27-2022 Reminders - From: Na Hayes LPN To: GSN - Clinical; Sent: 11/27/2022 12:46:10 EST Show up: 10/25/2032 07:00:00 EST Subject: colonoscopy recall Due Date/Time: 11/25/2032 07:00:00 EST Reminder/Recall Patient is due for screening colonoscopy 11/25/2032. Normal [facility] Lab Reportson 11-24-2022 Lab Reports [id number] 0CD:127 Normal [facility] Covid-19 PCR ([facility])on 10-24 SARS-CoV-2 (COVID-19) RNA BECK+probe Ql (Unsp spec) Not detected Normal NOT DETECTED [facility] Comment on above: Result Comment: This test is not yet approved or cleared by the [place] FDA. When there are no FDA-approved or cleared tests available, and other criteria are met, FDA can make tests available under an emergency access mechanism called an Emergency Use Authorization (EUA). The EUA for this test is supported by the [employer] of Health and Human Service's (HHS's) declaration [...] consistent with SARS-CoV-2. Performed By: #### C [facility] #### [facility] [address] [place] [address] Dr. Rich Cutler Consent for Procedure/Surger yon 10-07-2022 Consent for Procedure/Surgery [id number] 0CD:127 Normal [facility] Ambulatory Visit Summaryon 1 12-06-2021 Ambulatory [...] for. Allergic conjunctivitis Anticoagulated Kidney stones Normal [facility] VC VENOUS REFLUX NINO LMTon 1 12-02-2021 VC VENOUS REFLUX NINO LMT Patient: ABY MADRIGAL Exam Date: 10/02/2022 : 1965 Gender:F Ordering : DR KENDRA MURILLO . Admission #: [id number] Family : Order #: [id number] CLICK HERE TO VIEW EXAM RADIOLOGY REPORT [...] chronic thrombus visualized Compressibility: Normal Flow: Normal C[employer]: Dist/med calf 3.3mm with 0s reflux. Tech Note: Incompetent SFJ and GSV. Patent varicose vein mid/med calf 2.9mm with 0s reflux. Patent varicose vein prox/post calf 3.8mm with 0s reflux. Patent varicose vein dist/med thigh 3.8mm with 2.0s reflux. CONCLUSION: 1. Mild right and [id number]-ha-zyhbdqyn left great saphenous vein venous insufficiency with dilatation 2. Left saphenous popliteal junction reflux 3. Mild left anterior accessory saphenous vein venous insufficiency without dilatation 4. Small bilateral incompetent varicose veins Dictated by: Adelia Lezama MD on 10/02/2022 at 13:36 Approved by: Adelia Lezama MD on 10/02/2022 at 13:52 Normal [facility] ECHOCARDIO M/2D COMPLETEon 1 11-30-2021 ECHOCARDIO M/2D COMPLETE Patient: ABY MADRIGAL Exam Date: 09/30/2022 : 1965 Gender:F Ordering : DR KENDRA MURILLO . Admission #: [id number] Family : Order #: [id number] CLICK HERE TO VIEW EXAM ECHOCARDIOGRAM REPORT [...] 15.88 ml, 59.64 ml Dictated by: Gomez Jay M.D. on 09/30/2022 at 18:28 Approved by: Gomez Jay M.D. on 09/30/2022 at 18:37 Normal [facility] BNPon 09-24-2022 Natriuretic peptide B (Bld) [Mass/Vol] 501.0 pg/mL Normal <=900.0 [facility] Comment on above: Performed By: #### C VDTBH #### [facility] [address] [place] [address] Dr. Rich Cutler CBC AUTO DIFFon 09-24-2022 BASO # 0.1 103/ul Normal 0.0-0.1 [facility] Comment on above: Performed By: #### C VDTBH #### [facility] [address] [place] [address] Dr. Rich Cutler Basophils/100 WBC (Bld) 0.8 % Normal 0.2-2.0 [facility] Comment on above: Performed By: #### C VDTBH #### [facility] [address] [place] [address] Dr. Rich Cutler EO # 0.3 103/ul Normal 0.0-0.7 [facility] Comment on above: Performed By: #### C VDTBH #### [facility] [address] [place] [address] Dr. Rich Cutler Eosinophils/100 WBC (Bld) 3.4 % Normal 0.9-7.0 [facility] Comment on above: Performed By: #### C VDTBH #### [facility] [address] [place] [address] Dr. Rich Cutler Erythrocyte distribution width (RBC) [Ratio] 13.3 % Normal 11.0-15.0 [facility] Comment on above: Performed By: #### C VDTBH #### [facility] [address] [place] [address] Dr. Rich Cutler Hematocrit (Bld) [Volume fraction] 40.5 % Normal 36.0-48.0 [facility] Comment on above: Performed By: #### C VDTBH #### [facility] [address] [address] [address] Rich Cutler Hemoglobin (Bld) [Mass/Vol] 13.1 g/dL Normal 12.0-16.0 [facility] Comment on above: Performed By: #### C VDTBH #### [facility] [address] [place] [address] Dr. Rich Cutler IG # 0.02 10e3/ul Normal 0.00-0.03 [facility] Comment on above: Performed By: #### C VDTBH #### [facility] [address] [place] [address] Dr. Rich Cutler IG % 0.3 % Normal 0.0-0.5 [facility] Comment on above: Performed By: #### C VDTBH #### [facility] [address] [place] [address] Dr. Rich Cutler LYMPH # 2.7 103/ul Normal 1.2-3.8 [facility] Comment on above: Performed By: #### C VDTBH #### [facility] [address] [place] [address] Dr. Rich Cutler Lymphocytes/100 WBC (Bld) 35.4 % Normal 20.5-60.0 [facility] Comment on above: Performed By: #### C VDTBH #### [facility] [address] [place] [address] Dr. Rich Cutler MANUAL DIFF REQ NO Normal [facility] Comment on above: Performed By: #### C VDTBH #### [facility] [address] [place] [address] Dr. Rich Cutler MCH (RBC) [Entitic mass] 28.2 pg Normal 26.7-34.0 [facility] Comment on above: Performed By: #### C VDTBH #### [facility] [address] [place] [address] Dr. Rich Cutler MCHC (RBC) [Mass/Vol] 32.3 g/dL Normal 29.9-35.2 [facility] Comment on above: Performed By: #### C VDTBH #### [facility] [address] [place] [address] Dr. Rich Cutler MCV (RBC) [Entitic vol] 87.3 fL Normal 81.0-99.0 [facility] Comment on above: Performed By: #### C VDTBH #### [facility] [address] [place] [address] Dr. Rich Cutler MONO # 0.5 103/ul Normal 0.3-0.8 [facility] Comment on above: Performed By: #### C VDTBH #### [facility] [address] [place] [address] Dr. Rich Cutler Monocytes/100 WBC (Bld) 6.5 % Normal 1.7-12.0 [facility] Comment on above: Performed By: #### C VDTBH #### [facility] [address] [place] [address] Dr. Rich Cutler NEUT # 4.1 103/ul Normal 1.4-6.5 [facility] Comment on above: Performed By: #### C VDTB #### [facility] [address] [place] [address] Dr. Rich Cutler Neutrophils/100 WBC (Bld) 53.6 % Normal 43.0-75.0 [facility] Comment on above: Performed By: #### C VDTBH #### [facility] [address] [place] [address] Dr. Rich Cutler Platelet mean volume (Bld) [Entitic vol] 10.3 fL Normal 9.5-13.5 [facility] Comment on above: Performed By: #### C VDTBH #### [facility] [address] [place] [address] Dr. Rich Cutler PLT 283 103/ul Normal 150-450 [facility] Comment on above: Performed By: #### C VDTBH #### [facility] [address] [place] [address] Dr. Rich Cutler RBC 4.64 106/ul Normal 4.20-5.40 [facility] Comment on above: Performed By: #### C VDTBH #### [facility] [address] [place] [address] Dr. Rich Cutler WBC 7.6 103/ul Normal 4.0-11.0 [facility] Comment on above: Performed By: #### C VDTBH #### [facility] [address] [place] [address] Dr. Rich Cutler INSULINon 09-24-2022 Insulin 15.1 uIU/mL Normal 2.6-24.9 [facility] Comment on above: Performed By: #### C VDTBH #### [facility] [address] [place] [address] Dr. Rich Cutler PROF 14(COMP METB)on 022 Albumin [Mass/Vol] 3.5 g/dL Normal 3.4-5.0 [facility] Comment on above: Performed By: #### C VDTBH #### [facility] [address] [place] [address] Dr. Rich Cutler Albumin/Globulin [Mass ratio] 1.0 {ratio} Normal [facility] Comment on above: Performed By: #### C VDTBH #### [facility] [address] [place] [address] Dr. Rich Cutler ALP [Catalytic activity/Vol] 91 U/L Normal 46-116 [facility] Comment on above: Performed By: #### C VDTBH #### [facility] [address] [place] [address] Dr. Rich Cutler ALT [Catalytic activity/Vol] 47 U/L Normal 14-59 [facility] Comment on above: Performed By: #### C VDTBH #### [facility] [address] [place] [address] Dr. Rich Cutler Anion gap [Moles/Vol] 11.7 mmol/L Normal [facility] Comment on above: Performed By: #### C VDTBH #### [facility] [address] [place] [address] Dr. Rich Cutler AST [Catalytic activity/Vol] 24 U/L Normal 15-37 [facility] Comment on above: Performed By: #### C VDTBH #### [facility] [address] [address] [address] Rich Cutler Bilirubin [Mass/Vol] 0.2 mg/dL Normal 0.2-1.0 [facility] Comment on above: Performed By: #### C VDTBH #### [facility] [address] [address] [address] Rich Cutler Calcium [Mass/Vol] 8.9 mg/dL Normal 8.5-10.1 [facility] Comment on above: Performed By: #### C VDTBH #### [facility] [address] [address] [address] Rich Cutler Chloride [Moles/Vol] 105 mmol/L Normal 98-107 [facility] Comment on above: Performed By: #### C VDTBH #### [facility] [address] [place] [address] Dr. Rich Cutler CO2 [Moles/Vol] 28.1 mmol/L Normal 21.0-32.0 [facility] Comment on above: Performed By: #### C VDTBH #### [facility] [address] [address] [address] Rich Cutler Creatinine [Mass/Vol] 1.13 mg/dL Critically high 0.55-1.02 [facility] Comment on above: Performed By: #### C VDTBH #### [facility] [address] [address] [address] Rich Cutler EGFR-AF UZBEK 60 mL/min/1.73m2 Normal >=60 [facility] Comment on above: Performed By: #### C VDTBH #### [facility] [address] [address] [address] Rich Cutler EGFR-NON AF UZBEK 49 mL/min/1.73m2 Critically low >=60 [facility] Comment on above: Performed By: #### C VDTBH #### [facility] [address] [address] [address] Rich Cutler Globulin (S) [Mass/Vol] 3.5 g/dL Normal [facility] Comment on above: Performed By: #### C VDTBH #### [facility] [address] [address] [address] Rich Cutler Glucose [Mass/Vol] 119 mg/dL Critically high 74-106 [facility] Comment on above: Performed By: #### C VDTBH #### [facility] [address] [address] [address] Rich Cutler Potassium [Moles/Vol] 3.8 mmol/L Normal 3.5-5.1 [facility] Comment on above: Performed By: #### C VDTBH #### [facility] [address] [address] [address] Rich Cutler Protein [Mass/Vol] 7.0 g/dL Normal 6.4-8.2 [facility] Comment on above: Performed By: #### C VDTBH #### [facility] [address] [address] [address] Rich Cutler Sodium [Moles/Vol] 141 mmol/L Normal 136-145 [facility] Comment on above: Performed By: #### C VDTBH #### [facility] [address] [address] [address] Rich Cutler Urea nitrogen [Mass/Vol] 16.0 mg/dL Normal 7.0-18.0 [facility] Comment on above: Performed By: #### C VDTBH #### [facility] [address] [address] [address] Rich Cutler Urea nitrogen/Creatinine [Mass ratio] 14.2 mg/mg Normal [facility] Comment on above: Performed By: #### C VDTBH #### [facility] [address] [address] [address] Rich Cutler TROPONIN, HIGH SENSITIVITYon 09-24-2022 HSTROP 10.6 pg/mL Normal 4.0-51.3 [facility] Comment on above: Result Comment: CUT- OFF POINTS HAVE BEEN ESTABLISHED BASED ON THE FOURTH UNIVERSAL DEFINITIONS OF MYOCARDIAL INFARCTION. THE UPPER REFERENCE LIMIT (URL) OF TROPONIN, DEFINED THE 99TH PERCENTILE OF cTnI DISTRIBUTION IN A REFERENCE POPULATION, HAS BEEN CONFIRMED THE DECISION THRESHOLD FOR MA DIAGNOSIS. Performed By: #### C VDTB #### [facility] [address] [place] [address] Dr. Rich Cutler XR CHEST 1 Von [...] [facility] Date: 2022-09-24 04:08 Normal [facility] CBC AUTO DIFFon 09-23-2022 BASO # 0.1 103/ul Normal 0.0-0.1 [facility] Comment on above: Performed By: #### C BC #### [facility] [address] [place] [address] Dr. Rich Cutler Basophils/100 WBC (Bld) 0.8 % Normal 0.2-2.0 [facility] Comment on above: Performed By: #### C BC #### [facility] [address] [place] [address] Dr. Rich Cutler EO # 0.2 103/ul Normal 0.0-0.7 [facility] Comment on above: Performed By: #### C BC #### [facility] [address] [place] [address] Dr. Rich Cutler Eosinophils/100 WBC (Bld) 3.5 % Normal 0.9-7.0 [facility] Comment on above: Performed By: #### C BC #### [facility] [address] [place] [address] Dr. Rich Cutler Erythrocyte distribution width (RBC) [Ratio] 13.4 % Normal 11.0-15.0 [facility] Comment on above: Performed By: #### C BC #### [facility] [address] [place] [address] Dr. Rich Cutler Hematocrit (Bld) [Volume fraction] 42.3 % Normal 36.0-48.0 [facility] Comment on above: Performed By: #### C BC #### [facility] [address] [place] [address] Dr. Rich Cutler Hemoglobin (Bld) [Mass/Vol] 13.4 g/dL Normal 12.0-16.0 [facility] Comment on above: Performed By: #### C BC #### [facility] [address] [place] [address] Dr. Rich Cutler IG # 0.03 10e3/ul Normal 0.00-0.03 [facility] Comment on above: Performed By: #### C BC #### [facility] [address] [place] [address] Dr. Rich Cutler IG % 0.5 % Normal 0.0-0.5 [facility] Comment on above: Performed By: #### C BC #### [facility] [address] [place] [address] Dr. Rich Cutler LYMPH # 2.9 103/ul Normal 1.2-3.8 [facility] Comment on above: Performed By: #### C BC #### [facility] [address] [place] [address] Dr. Rich Cutler Lymphocytes/100 WBC (Bld) 44.0 % Normal 20.5-60.0 [facility] Comment on above: Performed By: #### C BC #### [facility] [address] [place] [address] Dr. Rich Cutler MANUAL DIFF REQ NO Normal [facility] Comment on above: Performed By: #### C BC #### [facility] [address] [place] [address] Dr. Rich Cutler MCH (RBC) [Entitic mass] 28.4 pg Normal 26.7-34.0 [facility] Comment on above: Performed By: #### C BC #### [facility] [address] [place] [address] Dr. Rich Cutler MCHC (RBC) [Mass/Vol] 31.7 g/dL Normal 29.9-35.2 [facility] Comment on above: Performed By: #### C BC #### [facility] [address] [place] [address] Dr. Rich Cutler MCV (RBC) [Entitic vol] 89.6 fL Normal 81.0-99.0 [facility] Comment on above: Performed By: #### C BC #### [facility] [address] [place] [address] Dr. Rich Cutler MONO # 0.4 103/ul Normal 0.3-0.8 [facility] Comment on above: Performed By: #### C BC #### [facility] [address] [place] [address] Dr. Rich Cutler Monocytes/100 WBC (Bld) 6.6 % Normal 1.7-12.0 [facility] Comment on above: Performed By: #### C BC #### [facility] [address] [place] [address] Dr. Rich Cutler NEUT # 2.9 103/ul Normal 1.4-6.5 [facility] Comment on above: Performed By: #### C BC #### [facility] [address] [place] [address] Dr. Rich Cutler Neutrophils/100 WBC (Bld) 44.6 % Normal 43.0-75.0 [facility] Comment on above: Performed By: #### C BC #### [facility] [address] [place] [address] Dr. Rich Cutler Platelet mean volume (Bld) [Entitic vol] 11.0 fL Normal 9.5-13.5 [facility] Comment on above: Performed By: #### C BC #### [facility] [address] [place] [address] Dr. Rich Cutler PLT 272 103/ul Normal 150-450 [facility] Comment on above: Performed By: #### C BC #### [facility] [address] [place] [address] Dr. Rich Cutler RBC 4.72 106/ul Normal 4.20-5.40 [facility] Comment on above: Performed By: #### C BC #### [facility] [address] [place] [address] Dr. Rich Cutler WBC 6.5 103/ul Normal 4.0-11.0 [facility] Comment on above: Performed By: #### C BC #### [facility] [address] [place] [address] Dr. Rich Cutler FREE THYROXINE INDEX T7on FTI 2.16 Normal 1.30-4.50 [facility] Comment on above: Performed By: #### L IPID, TSH, T7, CMP #### [facility] [address] [place] [address] Dr. Rich Cutler T3U 30.0 % Normal 30.0-39.0 [facility] Comment on above: Performed By: #### L IPID, TSH, T7, CMP #### [facility] [address] [place] [address] Dr. Rich Cutler T4 [Mass/Vol] 7.20 ug/dL Normal 4.80-13.90 [facility] Comment on above: Performed By: #### L IPID, TSH, T7, CMP #### [facility] [address] [place] [address] Dr. Rich Cutler GLYCOHEMOGLOBIN A1Con 2021 ADA RECOMMENDATION SEE BELOW Normal [facility] Comment on above: Result Comment: ADA RECOMMENDED LIMIT 4.0 - 6.0 ADA THERAPEUTIC TARGET < 7.0 ACTION SUGGESTED > 7.0 Performed By: #### A 1C #### [facility] [address] [place] [address] Dr. Rich Cutler Glucose [Mass/Vol] 128 mg/dL Normal [facility] Comment on above: Performed By: #### A 1C #### [facility] [address] [place] [address] Dr. Rich Cutler HbA1c (Bld) [Mass fraction] 6.1 % Normal 4.5-6.2 [facility] Comment on above: Performed By: #### A 1C #### [facility] [address] [address] [address] Rich Cutler IRONon 09-23-2022 Iron [Mass/Vol] 64.0 ug/dL Normal 50.0-170.0 [facility] Comment on above: Performed By: #### C VDTBH #### [facility] [address] [address] [address] Rich Cutler LIPID PROFILEon 09-23-2022 CHOL-HDL RATIO NORM SEE BELOW Normal [facility] Comment on above: Result Comment: 3.3 - 4.4 LOW RISK 4.4 - 7.1 AVERAGE RISK 7.1 - 11.0 MODERATE RISK >11.0 HIGH RISK Performed By: #### L IPID, TSH, T7, CMP #### [facility] [address] [address] [address] Rich Cutler Cholesterol [Mass/Vol] 237 mg/dL Critically high <=200 [facility] Comment on above: Performed By: #### L IPID, TSH, T7, CMP #### [facility] [address] [address] [address] Rich Cutler Cholesterol in HDL [Mass/Vol] 44 mg/dL Normal 40-60 [facility] Comment on above: Performed By: #### L IPID, TSH, T7, CMP #### [facility] [address] [address] [address] Rich Cutler Cholesterol in LDL [Mass/Vol] 172.2 mg/dL Normal [facility] Comment on above: Performed By: #### L IPID, TSH, T7, CMP #### [facility] [address] [address] [address] Rich Cutler Cholesterol.total/Ch olesterol in HDL [Mass ratio] 5.4 {ratio} Normal [facility] Comment on above: Performed By: #### L IPID, TSH, T7, CMP #### [facility] [address] [address] [address] Rich Cutler HDL NORMAL > or = 60 mg/dl - LO W CARDIOVASCULAR RISK <40 mg/dl - HIGH CARDIOVASCULAR RISK Normal [facility] Comment on above: Performed By: #### L IPID, TSH, T7, CMP #### [facility] [address] [address] [address] Rich Cutler LDL CALC NORMAL SEE BELOW Normal [facility] Comment on above: Result Comment: <100 mg/dl OPTIMAL 100 - 129 mg/dl NEAR OR ABOVE OPTIMAL 130 - 159 mg/dl BORDERLINE HIGH 160 - 189 mg/dl HIGH >190 mg/dl VERY HIGH Performed By: #### L IPID, TSH, T7, CMP #### [facility] [address] [address] [address] Rich Cutler Triglyceride [Mass/Vol] 104 mg/dL Normal <=150 [facility] Comment on above: Performed By: #### L IPID, TSH, T7, CMP #### [facility] [address] [address] [address] Rich Cutler VLDL CALC 20.8 mg/dL Normal [facility] Comment on above: Performed By: #### L IPID, TSH, T7, CMP #### [facility] [address] [address] [address] Rich Cutler PROF 14(COMP METB)on 022 Albumin [Mass/Vol] 3.5 g/dL Normal 3.4-5.0 [facility] Comment on above: Performed By: #### L IPID, TSH, T7, CMP #### [facility] [address] [address] [address] Rich Cutler Albumin/Globulin [Mass ratio] 0.9 {ratio} Normal [facility] Comment on above: Performed By: #### L IPID, TSH, T7, CMP #### [facility] [address] [address] [address] Rich Cutler ALP [Catalytic activity/Vol] 93 U/L Normal 46-116 [facility] Comment on above: Performed By: #### L IPID, TSH, T7, CMP #### [facility] [address] [address] [address] Rich Cutler ALT [Catalytic activity/Vol] 44 U/L Normal 14-59 [facility] Comment on above: Performed By: #### L IPID, TSH, T7, CMP #### [facility] [address] [address] [address] Rich Cutler Anion gap [Moles/Vol] 8.5 mmol/L Normal [facility] Comment on above: Performed By: #### L IPID, TSH, T7, CMP #### [facility] [address] [address] [address] Rich Cutler AST [Catalytic activity/Vol] 26 U/L Normal 15-37 [facility] Comment on above: Performed By: #### L IPID, TSH, T7, CMP #### [facility] [address] [place] [address] Dr. Rich Cutler Bilirubin [Mass/Vol] 0.3 mg/dL Normal 0.2-1.0 [facility] Comment on above: Performed By: #### L IPID, TSH, T7, CMP #### [facility] [address] [place] [address] Dr. Rich Cutler Calcium [Mass/Vol] 9.0 mg/dL Normal 8.5-10.1 [facility] Comment on above: Performed By: #### L IPID, TSH, T7, CMP #### [facility] [address] [place] [address] Dr. Rich Cutler Chloride [Moles/Vol] 106 mmol/L Normal 98-107 [facility] Comment on above: Performed By: #### L IPID, TSH, T7, CMP #### [facility] [address] [place] [address] Dr. Rich Cutler CO2 [Moles/Vol] 31.0 mmol/L Normal 21.0-32.0 [facility] Comment on above: Performed By: #### L IPID, TSH, T7, CMP #### [facility] [address] [place] [address] Dr. Rich Cutler Creatinine [Mass/Vol] 1.11 mg/dL Critically high 0.55-1.02 [facility] Comment on above: Performed By: #### L IPID, TSH, T7, CMP #### [facility] [address] [address] [address] Rich Cutler EGFR-AF UZBEK >60 Normal >=60 [facility] Comment on above: Performed By: #### L IPID, TSH, T7, CMP #### [facility] [address] [address] [address] Rich Cutler EGFR-NON AF UZBEK 50 mL/min/1.73m2 Critically low >=60 [facility] Comment on above: Performed By: #### L IPID, TSH, T7, CMP #### [facility] [address] [address] [address] Rich Cutler Globulin (S) [Mass/Vol] 3.7 g/dL Normal [facility] Comment on above: Performed By: #### L IPID, TSH, T7, CMP #### [facility] [address] [place] [address] Dr. Rich Cutler Glucose [Mass/Vol] 121 mg/dL Critically high 74-106 [facility] Comment on above: Performed By: #### L IPID, TSH, T7, CMP #### [facility] [address] [address] [address] Rich Cutler Potassium [Moles/Vol] 4.5 mmol/L Normal 3.5-5.1 [facility] Comment on above: Performed By: #### L IPID, TSH, T7, CMP #### [facility] [address] [address] [address] Rich Cutler Protein [Mass/Vol] 7.2 g/dL Normal 6.4-8.2 [facility] Comment on above: Performed By: #### L IPID, TSH, T7, CMP #### [facility] [address] [address] [address] Rich Cutler Sodium [Moles/Vol] 141 mmol/L Normal 136-145 [facility] Comment on above: Performed By: #### L IPID, TSH, T7, CMP #### [facility] [address] [address] [address] Rich Cutler Urea nitrogen [Mass/Vol] 16.0 mg/dL Normal 7.0-18.0 [facility] Comment on above: Performed By: #### L IPID, TSH, T7, CMP #### [facility] [address] [address] [address] Rich Cutler Urea nitrogen/Creatinine [Mass ratio] 14.4 mg/mg Normal [facility] Comment on above: Performed By: #### L IPID, TSH, T7, CMP #### [facility] [address] [address] [address] Rich Cutler TSHon 09-23-2022 TSH 3.915 uIU/mL Critically high 0.358-3.740 [facility] Comment on above: Performed By: #### L IPID, TSH, T7, CMP #### [facility] [address] [address] [address] Rich Cutler Physician Referralon 022 Physician Referral [id number] Normal [facility] Lipid Panelon 10-07-2021 Cholesterol [Mass/Vol] 205 mg/dL High 140-200 [facility] Comment on above: Result Comment: Chol less than 200 mg/dl low risk Chol 201-239 mg/dl borderline risk Chol 240 mg/dl and greater high risk Performed By: #### L IPID, [id number], TSH3 wRFLX #### [facility] [address] [id number] [place] Cholesterol in HDL [Mass/Vol] 25 mg/dL Low 35-85 [facility] Comment on above: Result Comment: HDL CHOL ATP-III CLASSIFICATION Cardiovascular Risk HDL > or equal to 60 mg/dL LOW HDL < 40 mg/dL HIGH Performed By: #### L IPID, [id number], TSH3 wRFLX #### [facility] [address] [place] [address] [place] Cholesterol.total/Ch olesterol in HDL [Mass ratio] 8.2 {ratio} Normal <5.0 [facility] Comment on above: Performed By: #### L IPID, [id number], TSH3 wRFLX #### [facility] [address] LDL Cholesterol,Calculat ed 160 mg/dL High 0-100 [facility] Comment on above: Result Comment: LDL ATP III CLASSIFICATION LDL less than 100 mg/dL Optimal LDL 100-129 mg/dL Near or above optimal LDL 130-159 mg/dL Borderline high LDL 160-189 mg/dL High LDL greater than 189 mg/dL Very high Performed By: #### L IPID, [id number], TSH3 wRFLX #### [facility] [address] Triglyceride w/Reflex 100 mg/dL Normal 35-149 [facility] Comment on above: Result Comment: TRIG ATP III CLASSIFICATION TRIG less than 150 mg/dL Normal TRIG 150-199 mg/dL Borderline high TRIG 200-500 mg/dL High TRIG greater than 500 mg/dL Very high Standard traceable to the Center for Disease Conrtrol and Prevention (CDC) test method. Performed By: #### L IPID, [id number], TSH3 wRFLX #### [facility] [address] [place] [address] VLDL CHOLESTEROL 20 mg/dL Normal [facility] Comment on above: Performed By: #### L IPID, [id number], TSH3 wRFLX #### [facility] [address] [place] [address] Thyroid Stim Hormone w/Rflxo n 10-07-2021 Thyroid Stim Hormone w/Rflx 3.27 u[iU]/mL Normal 0.45-5.33 [facility] Comment on above: Performed By: #### L IPID, [id number], TSH3 wRFLX #### [facility] [address] [place] [address] Vitamin D 25 Hydroxy Totalon 10-07-2021 Vitamin [...] guideline. JCEM. 2011 May; 96(7):1911-30. PERFORMED BY: [facility] [address] [place] [address] PATHOLOGIST THERMITE WELDER SILVESTRE SCHULER M.D. Performed By: #### L IPID, [id number], TSH3 wRFLX #### [facility] [address] [id number] [facility] Vital Signs Date Time Vital Sign Value Performing Clinician Faci lity 10-06-2022 15:36-0500 Blood Pressure Location Umm MARTÍNEZ [facility] 10-06-2022 15:36-0500 Diastolic blood pressure 86 mm[Hg] Umm NILL [facility] 10-06-2022 15:36-0500 Heart rate 72 /min Umm NILL [facility] 10-06-2022 15:36-0500 Respiratory rate 16 /min Umm NILL [facility] 10-06-2022 15:36-0500 Systolic blood pressure 126 mm[Hg] Umm NILL [facility] Encounters Encounter Date Encounter Type Care Provider Facility Start: 06-30-2024 Evaluation and manag ement of inpatient [facility] Start: 06-30-2024 Evaluation and manag ement of inpatient [facility] Start: 06-29-2024 End: 07-01-2024 Evaluation and management of inpatient KENDRA [facility] Start: 06-21-2024 End: 06-21-2024 ambulatory [facility] Start: 05-26-2024 End: 05-26-2024 ambulatory [facility] Start: 11-26-2022 Encounter for preprocedural laboratory examination DR UMM MARTÍNEZ . [facility] Start: 11-25-2022 End: 11-26-2022 ambulatory Umm MARTÍNEZ Facility:CD:[id number] Start: 11-20-2022 End: 11-21-[address] UMM MARTÍNEZ . Facility:[facility] Start: 11-20-2022 End: 11-21-2022 Encounter for preprocedural laboratory examination DR UMM MARTÍNEZ . Facility: Start: 10-06-2022 End: 10-07-2022 ambulatory Umm MARTÍNEZ Facility:[facility] Start: 10-06-2022 End: 10-06-2022 Patient encounter procedure Umm MARTÍNEZ General Surgery [facility] Start: 10-02-2022 End: 10-03-[address] KENDRA MURILLO . Facility: Start: 09-30-2022 End: 10-01-[address] KENDRA MURILLO . Facility: Start: 09-28-2022 Encounter for genera l adult medical examination without abnormal findings DR KENDRA MURILLO . [facility] Start: 09-24-2022 End: 09-24-2022 ambulatory [...] Cystoscopic insertio n of ureteric stent Umm MARTÍNEZ Dilation and curetta ge of uterus Umm MARTÍNEZ Vaginal hysterectomy Umm MARTÍNEZ Immunizations Immunization Date Immunization Notes Care Provider Fa [facility] 04-14-2021 SARS-CoV-2 (COVID-19 ) mRNA BNT-162b2 vax Umm JACQUESL [facility] [place] 03-11-2021 SARS-CoV-2 (COVID-19 ) mRNA BNT-162b2 vax Umm JACQUESL [facility] [place] Payers Date Payer Category Payer Medicaid [id number] 1965 Unknown [id number] 2.16.8 [id number] 1965 Unknown [id number] 2.16.8 [id number] 1965 Unknown [id number] 2.16.84 [id number] 1965 Unknown [id number] 2.16.84 [id number] 1964 Unknown [id number] 2.16.84 [id number] 1964 Unknown [id number] 2.16.84 [id number] 1964 Unknown [id number] 2.16.84 [id number] 1964 Unknown [id number] 2.16.84 [id number] 1964 Unknown [id number] 2.16.84 [id number] 1960 Self-pay [id number] 1960 Unknown [id number] Social History Date Type Detail Facility Start: 10-06-2022 Tobacco smoking status Ex-smoker (fi nding) [facility] [place] Tobacco smoking status Never [facility] [place] Sex Assigned At Female [facility] Functional Status Date Assessment Result Facility 10-06-2022 Functional Status N/A [facility] [place] Clinical Notes 10-11-2022 to 07-01-2024 Note Date & Type Note Facility 07-01-2024 Note Hospital Medicine Discharge Summary Final Discharge Diagnosis: # NSTEMI # HTN urgency # Chronic HFpEF # NIDDM # Bilateral renal artery stenosis Admission Diagnosis: Chest pain [R07.9] Hospital course: Surgical, Invasive or Diagnostic Procedures Done During Admission: Cardiac Cath Consultations During Admission: Cardiology 59 y.o. female who came from home with past medical history of anxiety, DM2, hypertension, IBS presents a direct mission from [facility] with a chief complaint of chest pain. Patient reports that she awoke on Wednesday morning with a feeling of indigestion. She reports that it advanced to her left arm and her back with associated nausea, diaphoresis and headache. She reports taking ibuprofen at home to help with the symptoms without relief. Reports that she has seen cardiology recently and is being worked up for ischemia secondary to changes seen on her EKG. She went to [facility] for the symptoms. Labs were completed showing WBC 7.1, RBC 4.78, hemoglobin 13.3, hematocrit 40.3, sodium 142, potassium 3.2, chloride 106,, BUN 15, creatinine 1.04, calcium 8.7, magnesium 1.7, troponin 8.7, BNP 276. Patient was also found to have elevated blood pressure and was given 10 mg IV labetalol. She was also given baby aspirin and nitroglycerin. Her chest pain did improve after the nitro administration. CXR was completed showing no acute findings. Cardiogram was completed showing new grade 1 diastolic dysfunction. She also underwent a renal ultrasound which showed elevated velocities of both renal arteries reflecting hemodynamically significant renal artery stenosis bilaterally. Cardiology team was contacted as patient's troponin continued to climb. She was started on a heparin drip and transferred to [facility] for likely cardiac cath. # NSTEMI s/p PCI to LAD: - Discharged on aspirin, Plavix, Crestor and Coreg. - Follow up with Cardiology. # HTN urgency, improving: - Discharged on Coreg. Continue losartan and clonidine (reduced to 0.1 mg bid to start weaning, wean off outpatient). # Bilateral renal artery stenosis: - Follow up with Nephology. # Chronic HFpEF: - Continue Lasix. # NIDDM: - Continue metformin. Dear Dr. Lidia MD, [facility] is advised to follow up with you within 1-2 weeks. Items to follow up in ambulatory setting: None Follow-up with: Cardiology and Nephrology Scheduled appointments: Future Appointments Date Time Provider Department Center 07/10/2024 2:20 PM Bijan Mitchell MD [facility] Your medication list START taking these medications Instructions Last Dose Given Next Dose Due carvedilol 25 mg tablet Commonly known as: Coreg Take 1 tablet (25 mg) by mouth with breakfast and with evening meal. clopidogrel 75 mg tablet Commonly known as: Plavix Take 1 tablet (75 mg) by mouth in the morning. rosuvastatin 40 mg tablet Commonly known as: Crestor Take 1 tablet (40 mg) by mouth in the morning. CHANGE how you take these medications Instructions Last Dose Given Next Dose Due cloNIDine 0.1 mg tablet Commonly known as: Catapres What changed: how much to take Take 1 tablet (0.1 mg) by mouth two times daily. CONTINUE taking these medications Instructions Last Dose Given Next Dose Due aspirin 81 mg EC tablet Lasix 20 mg tablet Generic drug: furosemide LORazepam 0.5 mg tablet Commonly known as: Ativan losartan 50 mg tablet Commonly known as: Cozaar Take 1 tablet (50 mg) by mouth in the morning. metFORMIN 500 mg tablet Commonly known as: Glucophage Protonix 40 mg EC tablet Generic drug: pantoprazole QUEtiapine 25 mg tablet Commonly known as: SEROquel STOP taking these medications metoprolol tartrate 100 mg tablet Commonly known as: Lopressor Where to Get Your Medications These medications were sent to [facility]/pharmacy #[id number] [place] [id number] carvedilol 25 mg tablet cloNIDine 0.1 mg tablet clopidogrel 75 mg tablet rosuvastatin 40 mg tablet Aby is allergic to lisinopril, norvasc [amlodipine], and xanax [alprazolam]. Disposition: Home or Self Care () Discharge Condition: Stable Code Status: Full Code Diagnostic Results Hematology: Results from last 7 days Lab Units 07/01/24 0627 06/30/24 0718 06/29/24 2344 WBC AUTO 10*3/uL 7.04 7.41 8.58 HEMOGLOBIN g/dL 12.4 11.5* 11.8* HEMATOCRIT % 38.6 36.7 35.9* MCV fL 83.7 85.7 82.7 PLATELETS AUTO 10*3/uL 238 243 233 INR -- -- 0.99 Chemistry: Results from last 7 days Lab Units 07/01/24 0627 06/30/24 0718 06/29/24 2344 SODIUM mmol/L 141 143 142 POTASSIUM mmol/L 3.5 3.7 3.7 CHLORIDE mmol/L 106 110* 112* CO2 mmol/L 25 26 22 BUN mg/dL 13 10 11 CREATININE mg/dL 0.91 0.81 0.92 GLUCOSE mg/dL 101* 110* 108* MAGNESIUM mg/dL 2.0 -- 1.7* CALCIUM mg/dL 8.2* 8.3* 8.5* PHOSPHORUS mg/dL -- -- 2.9 Results from last 7 days Lab Units (more content not included)... [facility] 07-01-2024 Note [facility] CARDIOLOGY INPAT IENT PROGRESS NOTE Reason for follow up: NSTEMI Subjective Aby Madrigal, a 59 y.o. female patient, is transferred from [facility] for continuity of care. Patient reports that 3 days ago, she woke up in the mid of the night with indigestion, and a feeling fullness, but no pressure like chest pain. She presented to [facility], where she was found to be hypertensive. She was treated for hypertension, and then she started experiencing chest like indigestion, not relieved on nitroTab, associated with headache. Upon presentation to the ED, patient was hypertensive with SBP-199, troponin level 0.11, EKG showing LVH with no new ST T wave changes. Assessed at bedside. Denied chest pain, SOB, Orthopnea or palpitations. Currently she is going to take a shower. -Tele: Sinus rhythm 70-86 bpm ALLERGIES Allergies Allergen Reactions Lisinopril Cough Norvasc [Amlodipine] Other Twitchy eye Xanax [Alprazolam] Other CURRENT MEDS aspirin, 81 mg, oral, Daily carvedilol, 25 mg, oral, BID with meals clopidogrel, 75 mg, oral, Daily furosemide, 20 mg, oral, Daily insulin lispro, 0-5 Units, subcutaneous, TID with meals And insulin lispro, 0-4 Units, subcutaneous, Nightly losartan, 50 mg, oral, Daily pantoprazole, 40 mg, oral, Daily QUEtiapine, 50 mg, oral, Nightly rosuvastatin, 40 mg, oral, Daily PRN medications: acetaminophen, glucose OR dextrose 50 % in water (D50W), LORazepam, melatonin, metoprolol tartrate, morphine, nitroglycerin, ondansetron ODT OR ondansetron, Insert peripheral IV AND Saline lock IV AND sodium chloride Objective Patient Vitals for the past 24 hrs: BP Temp Temp src Pulse Resp SpO2 Weight 07/01/24 0800 148/62 36.2 ???C (97.2 ???F) -- 72 15 95 % -- 07/01/24 0605 (!) 194/65 -- -- 69 13 100 % -- 07/01/24 0515 -- -- -- -- -- -- 96.5 kg (212 lb 11.9 oz) 07/01/24 0400 134/52 36 ???C (96.8 ???F) Temporal 65 13 96 % -- 07/01/24 0200 146/63 -- -- 69 12 97 % -- 07/01/24 0000 119/53 36.1 ???C (97 ???F) Temporal 72 13 95 % -- 06/30/24 2300 170/66 -- -- 79 16 94 % -- 06/30/24 2200 179/68 -- -- 79 18 96 % -- 06/30/24 2100 161/64 -- -- 75 13 -- -- 06/30/24 2000 134/52 36 ???C (96.8 ???F) Temporal 76 13 98 % -- 06/30/24 1945 109/54 -- -- 69 19 96 % -- 06/30/24 1930 (!) 84/47 -- -- 57 17 98 % -- 06/30/24 1900 150/63 -- -- 78 17 98 % -- 06/30/24 1800 175/66 -- -- 76 13 96 % -- 06/30/24 1725 163/77 -- -- 79 18 -- -- 06/30/24 1708 166/64 -- -- 84 16 96 % -- 06/30/24 1544 -- -- -- -- -- 100 % -- 06/30/24 1543 (!) 224/69 -- -- 71 16 100 % -- 06/30/24 1400 (!) 191/72 -- -- 57 11 99 % -- 06/30/24 0940 175/65 -- -- 55 18 99 % -- 06/30/24 0935 178/74 -- -- 56 18 96 % -- 06/30/24 0930 163/77 -- -- 61 14 96 % -- 06/30/24 0925 166/70 -- -- 63 12 95 % -- BP 148/62 (BP Location: Right arm, Patient Position: Lying) Pulse 72 Temp 36.2 ???C (97.2 ???F) Resp 15 Ht 1.6 m (5' 2.99 ) Wt 96.5 kg (212 lb 11.9 oz) SpO2 95% BMI 37.70 kg/m??? Wt Readings from Last 3 Encounters: 07/01/24 96.5 kg (212 lb 11.9 oz) 06/21/24 97.5 kg (215 lb) 05/26/24 97.5 kg (215 lb) General: Awake, alert, appropriate mood / affect, NAD Eyes: anicteric sclera. Non-injected conjunctiva. No xanthelasmas Neck: No elevated JVP. No carotid bruit Pulm: Breath sounds clear to ascultation bilaterally with no wheeze, crackles or rhonchi Cards: HRRR, NL S1, S2. No S3 or S4 gallop. Murmur: none Abd: Soft, Nontender, physiologic bowel sounds are present Extr: Lower extremity edema: none. Radial and DP pulses present bilaterally. Lt radial site C/D/I, no bruit, hematoma or ecchymosis noted Skin: warm, dry, well perfused Neuro: A&Ox3, No gross deficits Lab Results Component Value Date NA 141 07/01/2024 K 3.5 07/01/2024 CL 106 07/01/2024 ANIONGAP 14 07/01/2024 BUN 13 07/01/2024 CREATININE 0.91 07/01/2024 CALCIUM 8.2 (L) 07/01/2024 MG 2.0 07/01/2024 PHOS 2.9 06/29/2024 Lab Results Component Value Date BILITOT 0.4 06/29/2024 ALKPHOS 64 06/29/2024 AST 21 06/29/2024 ALT 35 06/29/2024 PROT 6.1 06/29/2024 ALBUMIN 3.8 06/29/2024 No results found for: CHOLESTEROL , CHOLESTEROL TOTAL , TRIGLYCERIDES , HDL , LDL CHOLESTEROL , LDL DIRECT , LDL CALC Lab Results Component Value Date BNP 222 (H) 06/29/2024 No results found for: THYROID , TSH , FREE T4 No results found for: DIGOXIN LVL No results found for: HGBA1C Lab Results Component Value Date BNP 222 (H) 06/29/2024 Lab Results Component Value Date WBC 7.04 07/01/2024 RBC 4.61 07/01/2024 HGB 12.4 07/01/2024 HCT 38.6 07/01/2024 MCV 83.7 07/01/2024 MCH 26.9 (L) 07/01/2024 MCHC 32.1 07/01/2024 RDW 15.4 (H) 07/01/2024 NEUTOPHILPCT 67.0 06/29/2024 LYMPHOPCT 23.5 06/29/2024 MONOPCT 6.5 06/29/2024 EOSPCT 2.1 06/29/2024 BASOPCT 0.6 06/29/2024 NEUTROABS 5.74 06/29/2024 LYMPHSABS 2.02 06/29/2024 MONOSABS 0.56 06/29/2024 E (more content not included)... [facility] 06-30-2024 Note Patient: Aby antony Procedure Information Date/Time: 06/30/24 1600 Procedure: Coronary angiography (Bilateral) Location: [facility] / [facility] (Cath) Providers: Brunilda Cuellar MD Clinical information reviewed: Allergies Meds Physical Exam Airway Mallampati: IV TM distance: <3 FB Neck ROM: full Cardiovascular Rhythm: regular Rate: normal (-) murmur, peripheral edema Dental - normal exam Pulmonary - normal exam Breath sounds clear to auscultation Abdominal - normal exam Abdomen: soft Anesthesia Plan ASA 3 other (Conscious sedation) Anesthetic plan and risks discussed with patient. Use of blood products discussed with patient who consented to blood products. Plan discussed with attending. 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 Referral Reason Follow up;Information Patient Information Primary Caregiver Self Accompanied by/Relationship daughters at bedside Activities of Daily Living Assistive Device Not applicable Living Arrangement (Current/Prior to Hospitalization) Private residence (three to four stairs) Ambulation Independent Dressing Independent Feeding Independent Behavior Oriented Communication Talks;Understands speaking;Understands Urdu Discharge Planning Support Systems Children (daughters will provide transportation) Type of Residence Private residence (one story with three to four steps) Patient's goal for discharge home Does the patient need discharge transport arranged? No Met with the patient today to discuss discharge planning. The patient currently lives alone but plans to return home upon discharge. The patient reported that her daughter will provide transportation. The patient stated that they have no concerns or questions for social work at this time. [facility] 06-30-2024 Note 06/30/24 1431 Admission Assessment Questions Verify insurance with patient Yes Do you understand medical disease or what brought you into the hospital? Yes Who is your current PCP? Kendra Murillo MD Can I schedule a follow up appointment for you at the time of discharge? Yes Do you understand why you are taking your current medications? Yes Are you taking your medications as prescribed? Yes Did patient provide teach back? No Pharmacy Bedside Delivery Status Not Interested Does the patient have a case management manager assigned to them through their insurance? No Living Arrangement (Current/Prior to Hospitalization) Private residence;Home self care (lives at home alone. One story home w/3-4 entry steps) Does the patient have history of HHC or SNF? No Assistive Device Other (Comment) (CPAP) Patient's goal for discharge home Was patient reminded that goal for discharge is 11am? No Does the patient have transportation at discharge? Yes Type of Residence Private residence Is PT/OT appropriate? No Is PT/OT ordered? No Is SW consult appropriate? No Is SW consult ordered? No Do you understand the benefits of SynergEyeshart? Yes Were you able to send link and activate Unowhyt? No [facility] 06-30-2024 Note Case was discussed w ith the SALVADOR on 06/29/2024. I agree with the history, physical, assessment, and plan of care. I discussed the findings and therapeutic plan. I agree with the documentation, except for any updates below. Maurice Nogueira MD [facility] 06-30-2024 Note Hospital Medicine History and Physical 06/30/2024 1:15 AM THE HOSPITALIST TEAM PREFERS TO USE Content[employer] CHAT FOR COMMUNICATION 7AM-7PM. IF I DO NOT RESPOND WITHIN 15 MINUTES, PLEASE PAGE ME/CALL THROUGH THE COOK HELPER MEAT. FROM 7PM-7AM, PLEASE PAGE [phone](COVR) Chief Complaint Direct admission from [facility] with CP History of Present Illness Aby Madrigal is an 59 y.o. female who came from home with past medical history of anxiety, DM2, hypertension, IBS presents a direct mission from [facility] with a chief complaint of chest pain. Patient reports that she awoke on Wednesday morning with a feeling of indigestion. She reports that it advanced to her left arm and her back with associated nausea, diaphoresis and headache. She reports taking ibuprofen at home to help with the symptoms without relief. Reports that she has seen cardiology recently and is being worked up for ischemia secondary to changes seen on her EKG. She went to [facility] for the symptoms. Labs were completed showing WBC 7.1, RBC 4.78, hemoglobin 13.3, hematocrit 40.3, sodium 142, potassium 3.2, chloride 106,, BUN 15, creatinine 1.04, calcium 8.7, magnesium 1.7, troponin 8.7, BNP 276. Patient was also found to have elevated blood pressure and was given 10 mgIV labetalol. She was also given baby aspirin and nitroglycerin. Her chest pain did improve after the nitro administration. CXR was completed showing no acute findings. Cardiogram was completed showing new grade 1 diastolic dysfunction. She also underwent a renal ultrasound which showed elevated velocities of both renal arteries reflecting hemodynamically significant renal artery stenosis bilaterally. Cardiology team was contacted as patient's troponin continued to climb. She was started on a heparin drip and transferred to [facility] for likely cardiac cath. Review of System and Physical Exam Temp: [37 ???C (98.6 ???F)] 37 ???C (98.6 ???F) Heart Rate: [70-71] 71 Resp: [12-19] 12 BP: (179-199)/(69-84) 199/84 Physical Exam Vitals reviewed. Constitutional: Appearance: She is normal weight. HENT: Head: Normocephalic. Mouth/Throat: Mouth: Mucous membranes are moist. Pharynx: Oropharynx is clear. Eyes: Conjunctiva/sclera: Conjunctivae normal. Cardiovascular: Rate and Rhythm: Normal rate. Pulses: Normal pulses. Heart sounds: Murmur heard. Pulmonary: Effort: Pulmonary effort is normal. Breath sounds: Normal breath sounds. Abdominal: General: Abdomen is flat. Bowel sounds are normal. Palpations: Abdomen is soft. Musculoskeletal: General: Normal range of motion. Skin: General: Skin is warm and dry. Capillary Refill: Capillary refill takes less than 2 seconds. Neurological: General: No focal deficit present. Mental Status: She is alert and oriented to person, place, and time. Mental status is at baseline. Psychiatric: Mood and Affect: Mood normal. Review of Systems Constitutional: Positive for diaphoresis and fatigue. Negative for appetite change, chills and fever. HENT: Negative for congestion. Eyes: Negative for discharge. Respiratory: Negative for chest tightness and shortness of breath. Cardiovascular: Positive for chest pain. Negative for palpitations and leg swelling. Gastrointestinal: Positive for nausea. Negative for abdominal pain, constipation, diarrhea and vomiting. Endocrine: Negative for cold intolerance. Genitourinary: Negative for difficulty urinating and dyspareunia. Musculoskeletal: Negative for arthralgias and back pain. Neurological: Positive for headaches. Negative for dizziness and numbness. Psychiatric/Behavioral: Negative for agitation and behavioral problems. Problem List Patient Active Problem List Diagnosis Date Noted Anxiety 06/30/2024 Type 2 diabetes mellitus without complication, without long-term current use of insulin ([facility]) 06/30/2024 Chest pain 06/30/2024 Elevated troponin 06/30/2024 Hypertensive urgency 06/30/2024 QURESHI (dyspnea on exertion) 05/26/2024 Atherosclerosis of [place] coronary artery of [place] heart without angina pectoris 05/26/2024 Hyperlipidemia 05/26/2024 Murmur, heart 05/26/2024 Sepsis ([facility]) 07/14/2019 BV (bacterial vaginosis) 10/18/2017 GERD (gastroesophageal reflux disease) 10/18/2017 Essential hypertension 10/18/2017 TIA (transient ischemic attack) 10/18/2017 Assessment and Plan Aby Madrigal is an 59 y.o. female who came from home with past medical history of anxiety, DM2, hypertension, IBS presents a direct mission from [facility] with a chief complaint of chest pain. #Chest pain #Elevated troponin Troponin 0.1, will continue to trend -Patient continues to have mild chest discomfort upon arrival -Continue heparin drip -CXR negative for acute process at OSH -EKG showing normal sinus rhythm -N.p.o. for possible right and left cardiac cath in a.m. -Patient with new diastolic dysfunction on echoc (more content not included)... [facility] 06-21-2024 Note [place] [facility] - [facility] Subjective Aby Madrigal is a 59 y.o. year old female patient being seen for follow up [facility] ED per Dr. Murillo. She has [...] attack) QURESHI (dyspnea on exertion) Atherosclerosis of [place] coronary artery of [place] heart without angina pectoris Hyperlipidemia Murmur, heart [...] Judgment: Judgment no (more content not included)... [facility] 05-26-2024 Note [facility] Note Reason for cardiology [...] PSYCH: appropriate mood, (more content not included)... [facility] 11-25-2022 Note OPERATIVE NOTE OPERATION DATE: 11/25/2022 [...] in 10 years. CC: Kendra Murillo M.D. [facility] 10-11-2022 Note Chief Complaint consultation for colonoscopy [...] 1 tab(s), Oral, (more content not included)... [facility] Comment on above: Result Comment: Elec tronically Signed By: DIPESH BUCKNER, Umm Valente.germania\Date and Time Signed: 10/11/22 11:01 EST Evaluation + Plan note No data available for this section [facility] [place] [facility] Discharge instructions No data available for this section General Surgery [place] Progress note No data available for this section General [facility] [place] Summary Purpose Family History No Family History [...] CREATED AUTHOR AUTHOR'S ORGANIZ ATION 12/16/2022 [facility] DATE CREATED AUTHOR AUTHOR'S ORGANIZ ATION 03/26/2023 [facility] DATE CREATED AUTHOR AUTHOR'S ORGANIZ ATION 07/04/2024 [facility] Patient Care team informatio n (unrecognized section and content) Personnel Name: Kendra Murillo MD Address: Address: [address] [place] [address] Personnel Name: Kendra Murillo MD Address: Address: [address] [place] [address] FOR RECORDS PERTAINING TO PATIENTS WHO ARE [...] BE BASED ON THE PRIMARY CLINICAL RECORDS. [facility]. provides no warranty or guarantee of the accuracy or completeness of information in this document.
[2024-07-11] MEDS: HEPARIN SODIUM,PORCINE/D5W 25,000 UNIT/500 ML IV.SOLN 16.56 UNIT IV (02:14)
[2024-07-11] MEDS: HEPARIN SODIUM (PORCINE) 5,000 UNIT/ML VIAL 4000 UNIT IV (02:16)
[2024-07-11 02:22] LABS: INR 0.93; Partial Thromboplastin Time 28.1 sec (22.3-36.2); Prothrombin Time 9.9 sec (9.0-11.6)
[2024-07-11] MEDS: LORAZEPAM 2 MG/ML VIAL 0.5 MG IV (02:34)
[2024-07-11 03:20] LABS: Troponin I High Sensitivity 9.1 pg/mL (4.0-51.3)
[2024-07-11] MEDS: MORPHINE SULFATE 4 MG/ML VIAL IV (04:34)
[2024-07-11] MEDS: LORAZEPAM 2 MG/ML VIAL 1 MG IV ×2 (05:34→08:37)
--- NOTE | 2024-07-11 07:17 | PC.NURSE ---
Assumed care of patient at this time. Patient reports she still has a constant pain in her middle chest rated at a 6/10. patient states she was sleeping but her sister called her and woke her up and now she is feeling anxious again. patient requesting more ativan at this time. patient encouraged to wait until closer to transport so that she is more comfortable before receiving more medication. Patient agrees with this plan. Patient updated that she will be transferred ER to ER at [facility] and this nurse explained the benefits of this. Patient verbalizes understanding of plan. Patient utilized bedside commode with stand by assist from nurse. This nurse offered starting a new IV that is not in the antecubital area but patient declines at this time.
[2024-07-11] MEDS: HYDROXYZINE PAMOATE 25 MG CAPSULE PO (07:36)
--- NOTE | 2024-07-11 08:58 | NUTR.NU ---
report called to MEGAN Delgadillo at [facility]
--- NOTE | 2024-07-11 10:32 | ECG_ITS ---
[facility] Test Date: 2024-07-11 Pat Name: MILAN RASMUSSEN Department: Room: - Gender: Female Credit Consultant: : 1965 Requested By: KENDRA MORAN Order Number: [id number] Reading MD: KENDRA MORAN Measurements Intervals [place] Rate: 69 P: 63 PA: 178 QRS: 28 QRSD: 94 T: 160 QT: 404 QTc: 423 Interpretive Statements 1100 Sinus rhythm [address] depression 4564 Twave abnormality, possible lateral ischemia 9150 abnormal ECG Compared to ECG 07/11/2024 00:22:25 ST (T wave) deviation now present Possible ischemia now present Left ventricular hypertrophy no longer present Early repolarization no longer present Electronically Signed On 07-12-2024 7:03:07 EDT by KENDRA MORAN
== END 2024-07-11 09:25 | disposition short-term general hospital (02) ==
PROVIDERS: Emergency Medicine; Emergency Provider Emergency Medicine; PCP Family Medicine
DX: R07.9 Chest pain, unspecified (principal); R94.31 Abnormal electrocardiogram [ECG] [EKG]; Z95.5 Presence of coronary angioplasty implant and graft; Z87.891 Personal history of nicotine dependence
CPT/HCPCS: 36415; 71045; 80048; 84484; 85025; 85610; 85730; 93005; 96374; 96375; 96376; 99285; J1644; J2060; J2270; Q0177

== ENCOUNTER 2024-07-18 18:31 | Emergency (ER) | payer MEDICAID, SELFPAY ==
[2024-07-18] VITALS (21 sets, daily range): BP systolic 143–203; BP diastolic 72–89; PULSE 70–86; TEMP 36.9; O2SAT 94–98; BMI 37.0
--- OUTSIDE RECORDS SUMMARY | 2024-07-18 18:37 | XMS_ITS | CCD ---
Author Organization [facility] CliniSyny Care Team Providers Care Hospital Superintendent Name Role Phone Kendra Murillo Primary Care [...] [employer] Unavailable HORANI, NONA Referring Unavailable HORANI, NONA Referring Unavailable HORANI, NONA Referring Unavailable TOFLINSKI, FEDERICA Referring Unavailable BIJAN MITCHELL Attending Unavailable GOMEZ JAY Attending Unavailable BIJAN MITCHELL Attending Unavailable TOFLINSKI, FEDERICA Referring Unavailable PIRKL, FELECIA Referring Unavailable HORANI, NONA Admitting Unavailable DAVID NASSAR Attending Unavailable JOSE BETANCUR Referring Unavailable KENDRA MURILLO Referring Unavailable HORNONA GREENE Admitting Unavailable LARRY ALFAROAR Attending Unavailable HORANI, NONA Referring Unavailable HORANI, NONA Referring Unavailable Allergies Allergy Classification Reported Allergen(s) Allergy Type Date of Onset Reaction(s) Facility (1 source) No Known Medication Allergies; 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: [No Known Medication Allergies] Propensity to adverse reactions (disorder) [facility] Repository (1 source) ALPRAZolam; 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: [ALPRAZOLAM] Drug Allergy [address] [place] [address] Repository (1 source) amLODIPine; 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: [AMLODIPINE] Drug Allergy 4 [facility] Repository (1 source) Lisinopril; 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: [LISINOPRIL] Drug Allergy [address] [place] [address] Repository Medications Current Medications Medication Drug Class(es) [...] Episodic Coronary atherosclerosis and other heart disease (7 sources) Coronary arteriosclerosis; 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: [Atherosclerotic heart disease of [place] coronary artery without angina pectoris] Onset: 3 09-30-2022 Chronic Diabetes mellitus without complication (2 sources) Type 2 diabetes mellitus without complications; 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: [Type 2 diabetes mellitus without complications] Onset: 4 Chronic Disorders of lipid metabolism (3 sources) Hyperlipidemia, unspecified; 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: [HYPERLIPIDEMIA UNSPECIFIED] Onset: 3 Chronic Essential hypertension (5 sources) Hypertensive disorder; 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: [Essential (primary) hypertension] Onset: 3 08-02-2019 Chronic Fluid and electrolyte disorders (2 sources) Hypokalemia; 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: [Hypokalemia] Onset: 4 Episodic Genitourinary symptoms and ill-defined conditions (6 sources) Increased frequency of urination; 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: [Nocturia] 08-02-2019 Episodic Headache; including migraine (2 sources) Migraine 08-02-2019 Chronic Heart valve disorders (2 sources) Heart murmur 10-30-2020 Episodic Hemorrhoids (2 sources) Hemorrhoids 08-02-2019 Episodic Hypertension with complications and secondary hypertension (4 sources) Hypertensive urgency; 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: [Hypertensive heart disease with heart failure] Onset: 4 Chronic Inflammation; infection of eye (except that caused [...] sources) Left ventricular hypertrophy 09-30-2022 Chronic Other and unspecified benign neoplasm (2 sources) Benign neoplasm of left adrenal gland; 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: [Benign neoplasm of left adrenal gland] Onset: 4 Episodic Other diseases of kidney and ureters (2 [...] [CONTACT W/AND (SUSP) EXPOS COVID-19] Onset: 3 Unclassified (1 source) Resistant hypertension; 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: [Resistant hypertension] Onset: 4 Past or Other Problems Problem Classification Problem Date Documented Da te Episodic/Chronic Calculus of urinary tract (5 sources) History of calculus of kidney; 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: [Kidney stone] Onset: 11-26-2022 12-20-2019 Episodic Other aftercare (1 source) skilled nursing (current) use of aspirin; 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: [LAP POLISHER CURRENT USE OF ASPIRIN] Onset: 11-26-2022 Episodic Other aftercare (1 source) 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 I am calling you to follow [...] being discharged from the hospital? I feel okay. 2. Did you understand your discharge instructions when they were given to prior to leaving? Yes Were you given an opportunity to ask questions? Yes 3. While a patient in the hospital, was your call light answered in a timely manner? Yes 4. Do have access to all medications that were prescribed to you at discharge? Yes 5. How would you rate your overall stay on a scale of 0-10, 10 being the best experience you have ever had. 8 6. Do you have any further questions you would like to discuss? No Patient Name Aby Madrigal Date 07/13/24 [facility] Telephoneon 07-13-2024 Telephone [phone] Aby Madrigal 1965 F Date Provider Department Center 07/13/2024 GINNY MALONEY [facility] Family History Problem Relation Age of Onset Lung cancer Mother No Known Problems Father Lung cancer Sister Family Status - Relation Status Age at Mother Father Sister Reason for Visit and Comments: Hospital Follow-up [832] Normal [facility] 30on 07-12-2024 30 The patient is Moderately Stable - Low risk of patient condition declining or worsening The patient's goals for the shift include find out what is wrong The clinical goals for the shift include stable vitals, safety Over the shift, the patient did not make progress toward the following goals. Barriers to progression include . Recommendations to address these barriers include . Normal [facility] ANTI-XA (HEPARIN LEVEL)on HEPARIN UNFRACTIONATED (U/ML) IN PPP BY CHROMOGENIC METHOD 0.60 IU/mL Normal 0.3-0.7 [facility] Comment on above: Order Comment: Check anti-Xa level every 6 hours while on heparin infusion, or per protocol. Result Comment: Radha roxaban and Apixaban will interfere with the anti Xa assay used to monitor UFH and LMWH. Performed By: #### L [id number] #### [facility] ([facility]) [address] [place] [address] BASIC METABOLIC PANELon 08-2 Anion gap [Moles/Vol] 10 mmol/L Normal 7-20 [facility] Comment on above: Performed By: #### L [id number] #### [facility] ([facility]) [address] [place] [address] Calcium [Mass/Vol] 8.8 mg/dL Normal 8.6-10.3 [facility] Comment on above: Performed By: #### L [id number] #### [facility] ([facility]) [address] [place] [address] Chloride [Moles/Vol] 108 mmol/L High 98-107 [facility] Comment on above: Performed By: #### L [id number] #### [facility] ([facility]) [address] [place] [address] CO2 [Moles/Vol] 27 mmol/L Normal 21-31 [facility] Comment on above: Performed By: #### L [id number] #### [facility] ([facility]) [address] [place] [address] Creatinine [Mass/Vol] 0.89 mg/dL Normal 0.60-1.20 [facility] Comment on above: Performed By: #### L [id number] #### [facility] ([facility]) [address] [facility] [place] [address] GLOMERULAR FILTRATION RATE ML/MIN/1.73 SQ M.PREDICTED 74.2 mL/min/1.73m*2 Normal >60.0 [facility] Comment on above: Result Comment: [facility]???s estimated glomerular filtration rate (eGFR) will [...] individuals. Performed By: #### L [id number] #### [facility] ([facility]) [address] [place] [address] Glucose [Mass/Vol] 109 mg/dL High 70-100 [facility] Comment on above: Performed By: #### L [id number] #### [facility] ([facility]) [address] [place] [address] Potassium [Moles/Vol] 3.4 mmol/L Low 3.5-5.1 [facility] Comment on above: Performed By: #### L [id number] #### [facility] ([facility]) [address] [place] [address] Sodium [Moles/Vol] 142 mmol/L Normal 136-145 [facility] Comment on above: Performed By: #### L [id number] #### [facility] ([facility]) [address] [place] [address] Urea nitrogen [Mass/Vol] 11 mg/dL Normal 7-25 [facility] Comment on above: Performed By: #### L [id number] #### [facility] ([facility]) [address] [place] [address] UREA NITROGEN/CREATININE (MASS RATIO) IN SER/PLAS 12.4 Normal [facility] Comment on above: Performed By: #### L [id number] #### [facility] ([facility]) [address] [place] [address] CBC WITH AUTO DIFFERENTIALon 07-12-2024 Basophils (Bld) [#/Vol] 0.04 10*3/uL Normal 0.00-0.20 [facility] Comment on above: Performed By: #### L [id number] #### [facility] ([facility]) [address] [place] [address] Basophils/100 WBC (Bld) 0.6 % Normal 0.0-1.0 [facility] Comment on above: Performed By: #### L [id number] #### [facility] ([facility]) [address] [place] [address] Eosinophils (Bld) [#/Vol] 0.22 10*3/uL Normal 0.00-0.50 [facility] Comment on above: Performed By: #### L [id number] #### [facility] ([facility]) [address] [place] [address] Eosinophils/100 WBC (Bld) 3.5 % Normal 0.0-6.0 [facility] Comment on above: Performed By: #### L [id number] #### [facility] ([facility]) [address] [place] [address] Erythrocyte distribution width (RBC) [Ratio] 14.5 % Normal 11.5-15.0 [facility] Comment on above: Performed By: #### L [id number] #### [facility] ([facility]) [address] [place] [address] ERYTHROCYTE MEAN CORPUSCULAR HEMOGLOBIN CONCENTRATION (G/DL) BY AUTOMATED 32.7 g/dL Normal 32.0-35.0 [facility] Comment on above: Performed By: #### L [id number] #### [facility] ([facility]) [address] [place] [address] Hematocrit (Bld) [Volume fraction] 34.2 % Low 36.0-48.0 [facility] Comment on above: Performed By: #### L [id number] #### [facility] ([facility]) [address] [place] [address] Hemoglobin (Bld) [Mass/Vol] 11.2 g/dL Low 12.0-15.0 [facility] Comment on above: Performed By: #### L [id number] #### [facility] ([facility]) [address] [place] [address] Immature granulocytes (Bld) [#/Vol] 0.01 10*3/uL Normal 0.00-0.20 [facility] Comment on above: Performed By: #### L [id number] #### [facility] ([facility]) [address] [place] [address] Immature granulocytes/100 WBC (Bld) 0.2 % Normal 0.0-1.0 [facility] Comment on above: Performed By: #### L [id number] #### [facility] ([facility]) [address] [place] [address] Lymphocytes (Bld) [#/Vol] 2.37 10*3/uL Normal 1.20-4.00 [facility] Comment on above: Performed By: #### L [id number] #### [facility] ([facility]) [address] [place] [address] Lymphocytes/100 WBC (Bld) 37.8 % Normal 20.0-45.0 [facility] Comment on above: Performed By: #### L [id number] #### [facility] ([facility]) [address] [place] [address] MCH (RBC) [Entitic mass] 27.4 pg Normal 27.0-33.0 [facility] Comment on above: Performed By: #### L [id number] #### [facility] ([facility]) [address] [place] [address] MCV (RBC) [Entitic vol] 83.6 fL Normal 82.0-98.0 [facility] Comment on above: Performed By: #### L [id number] #### [facility] ([facility]) [address] [place] [address] Monocytes (Bld) [#/Vol] 0.43 10*3/uL Normal 0.10-1.00 [facility] Comment on above: Performed By: #### L [id number] #### [facility] ([facility]) [address] [place] [address] Monocytes/100 WBC (Bld) 6.9 % Normal 5.0-12.0 [facility] Comment on above: Performed By: #### L [id number] #### [facility] ([facility]) [address] [place] [address] Neutrophils (Bld) [#/Vol] 3.20 10*3/uL Normal 1.60-7.60 [facility] Comment on above: Performed By: #### L [id number] #### [facility] ([facility]) [address] [place] [address] Neutrophils/100 WBC (Bld) 51.0 % Normal 40.0-72.0 [facility] Comment on above: Performed By: #### L [id number] #### [facility] ([facility]) [address] [place] [address] NRBC (PER 100 WBCS) BY AUTOMATED COUNT 0.0 % Normal 0 [facility] Comment on above: Performed By: #### L [id number] #### [facility] ([facility]) [address] [place] [address] PLATELETS (10*3/UL) IN BLOOD AUTOMATED COUNT 223 10*3/uL Normal 150-400 [facility] Comment on above: Performed By: #### L [id number] #### [facility] ([facility]) [address] [place] [address] RBC (Bld) [#/Vol] 4.09 10*6/uL Normal 3.80-5.00 [facility] Comment on above: Performed By: #### L [id number] #### [facility] ([facility]) [address] [place] [address] WBC (Bld) [#/Vol] 6.27 10*3/uL Normal 4.00-10.60 [facility] Comment on above: Performed By: #### L [id number] #### [facility] ([facility]) [address] [place] [address] MAGNESIUMon 07-12-2024 Magnesium [Mass/Vol] 1.7 mg/dL Low 1.9-2.7 [facility] Comment on above: Performed By: #### L [id number] #### [facility] ([facility]) [address] [place] [address] POCT GLUCOSE METER UNSOLICIT ED RESULTSon 07-12-2024 Glucose [Mass/Vol] 102 mg/dL Normal 70-105 [facility] Comment on above: Order Comment: Waive d Testing in the ED is performed under the ED CLIA certificate #[id number]. Result Comment: [email or web address] Performed By: #### L [id number] #### [facility] ([facility]) [address] [place] [address] TROPONIN Ion 07-12-2024 Troponin I.cardiac [Mass/Vol] 0.01 ng/mL Normal 0.00-0.04 [facility] Comment on above: Performed By: #### L [id number] #### [facility] ([facility]) [address] [place] [address] 30on 07-11-2024 30 The patient is Moderately Stable - Low risk of patient condition declining or worsening The patient's goals for the shift include comfort, rest The clinical goals for the shift include stable vitals, safety Problem: Pain - Adult Goal: Verbalizes/displays adequate comfort level or baseline comfort level Outcome: Progressing Problem: Safety - Adult Goal: Free from fall injury Outcome: Progressing Problem: Chronic Conditions and Co-morbidities Goal: Patient's chronic conditions and co-morbidity symptoms are monitored and maintained or improved Outcome: Progressing Normal [facility] 30 The patient is Moderately Stable - Low risk of patient condition declining or worsening The patient's goals for the shift include no chest pain The clinical goals for the shift include stable vital/no chest pain Over the shift, the patient did not make progress toward the following goals. Barriers to progression include . Recommendations to address these barriers include . Normal [facility] ALDOSTERONEon 07-11-2024 ALDOSTERONE (NG/DL) IN SER/PLAS 4.9 ng/dL Normal [facility] Comment on above: Result Comment: INTE RPRETIVE INFORMATION: Aldosterone, Serum Reference intervals for age 15 and older: Upright ......... 4.0 - 31.0 ng/dL Supine .......... Less than or equal to 16.0 ng/dL Unspecified ..... Less than or equal to 31.0 ng/dL Normal serum levels of aldosterone are dependent on the sodium intake and whether the patient is upright or supine. High sodium intake will tend to suppress serum aldosterone, whereas low sodium intake will elevate serum aldosterone. The reference intervals for serum aldosterone are based on normal sodium intake. Access complete set of age- and/or gender-specific reference intervals for this test in the [facility] Laboratory Test Directory ([facility]). Performed By: [facility] [address] [place] [id number] [employer] Instructor: Navneet Simeon MD, PhD CLIA Number: [id number] Performed By: #### L [id number] #### [facility] ([facility]) [address] [place] [address] ANTI-XA (HEPARIN LEVEL)on HEPARIN UNFRACTIONATED (U/ML) IN PPP BY CHROMOGENIC METHOD 0.42 IU/mL Normal 0.3-0.7 [facility] Comment on above: Order Comment: Check anti-Xa level every 6 hours while on heparin infusion, or per protocol. Result Comment: Radha roxaban and Apixaban will interfere with the anti Xa assay used to monitor UFH and LMWH. Performed By: #### L [id number] #### [facility] ([facility]ER) [address] [place] [address] HEPARIN UNFRACTIONATED (U/ML) IN PPP BY CHROMOGENIC METHOD 0.20 IU/mL Low 0.3-0.7 [facility] Comment on above: Order Comment: Check anti-Xa level every 6 hours while on heparin infusion, or per protocol. Result Comment: Radha roxaban and Apixaban will interfere with the anti Xa assay used to monitor UFH and LMWH. Performed By: #### L [id number] #### [facility] ([facility]) [address] [place] [address] APTTon 07-11-2024 ACTIVATED PARTIAL THROMBOPLASTIN TIME IN PPP BY COAGULATION ASSAY 43.0 Seconds High 25.0-35.0 [facility] Comment on above: Result Comment: Clin ical significance of the APTT is questionable in the presence of heparin. Performed By: #### L [id number] #### [facility] ([facility]) [address] [place] [address] BASIC METABOLIC PANEL 06-23 Anion gap [Moles/Vol] 9 mmol/L Normal 7-20 [facility] Comment on above: Performed By: #### L [id number] #### [facility] ([facility]) [address] [place] [address] Calcium [Mass/Vol] 8.8 mg/dL Normal 8.6-10.3 [facility] Comment on above: Performed By: #### L [id number] #### [facility] ([facility]) [address] [place] [address] Chloride [Moles/Vol] 108 mmol/L High 98-107 [facility] Comment on above: Performed By: #### L [id number] #### [facility] ([facility]) [address] [place] [address] CO2 [Moles/Vol] 28 mmol/L Normal 21-31 [facility] Comment on above: Performed By: #### L [id number] #### [facility] ([facility]) [address] [place] [address] Creatinine [Mass/Vol] 1.09 mg/dL Normal 0.60-1.20 [facility] Comment on above: Performed By: #### L [id number] #### [facility] ([facility]) [address] [place] [address] GLOMERULAR FILTRATION RATE ML/MIN/1.73 SQ M.PREDICTED 58.2 mL/min/1.73m*2 Low >60.0 [facility] Comment on above: Result Comment: [facility]???s estimated glomerular filtration rate (eGFR) will [...] individuals. Performed By: #### L [id number] #### [facility] ([facility]) [address] [place] [address] Glucose [Mass/Vol] 113 mg/dL High 70-100 [facility] Comment on above: Performed By: #### L [id number] #### [facility] ([facility]) [address] [place] [address] Potassium [Moles/Vol] 3.4 mmol/L Low 3.5-5.1 [facility] Comment on above: Performed By: #### L [id number] #### [facility] ([facility]) [address] [place] [address] Sodium [Moles/Vol] 142 mmol/L Normal 136-145 [facility] Comment on above: Performed By: #### L [id number] #### [facility] ([facility]) [address] [place] [address] Urea nitrogen [Mass/Vol] 14 mg/dL Normal 7-25 [facility] Comment on above: Performed By: #### L [id number] #### [facility] ([facility]) [address] [place] [address] UREA NITROGEN/CREATININE (MASS RATIO) IN SER/PLAS 12.8 Normal [facility] Comment on above: Performed By: #### L [id number] #### [facility] ([facility]) [address] [place] [address] CBC WITH AUTO DIFFERENTIALon 07-11-2024 Basophils (Bld) [#/Vol] 0.04 10*3/uL Normal 0.00-0.20 [facility] Comment on above: Performed By: #### L [id number] #### [facility] ([facility]) [address] [place] [address] Basophils/100 WBC (Bld) 0.6 % Normal 0.0-1.0 [facility] Comment on above: Performed By: #### L [id number] #### [facility] ([facility]) [address] [place] [address] Eosinophils (Bld) [#/Vol] 0.16 10*3/uL Normal 0.00-0.50 [facility] Comment on above: Performed By: #### L [id number] #### [facility] ([facility]) [address] [place] [address] Eosinophils/100 WBC (Bld) 2.2 % Normal 0.0-6.0 [facility] Comment on above: Performed By: #### L [id number] #### [facility] ([facility]) [address] [place] [address] Erythrocyte distribution width (RBC) [Ratio] 14.6 % Normal 11.5-15.0 [facility] Comment on above: Performed By: #### L [id number] #### [facility] ([facility]) [address] [place] [address] ERYTHROCYTE MEAN CORPUSCULAR HEMOGLOBIN CONCENTRATION (G/DL) BY AUTOMATED 32.0 g/dL Normal 32.0-35.0 [facility] Comment on above: Performed By: #### L [id number] #### [facility] ([facility]) [address] [place] [address] Hematocrit (Bld) [Volume fraction] 36.2 % Normal 36.0-48.0 [facility] Comment on above: Performed By: #### L [id number] #### [facility] ([facility]) [address] [place] [address] Hemoglobin (Bld) [Mass/Vol] 11.6 g/dL Low 12.0-15.0 [facility] Comment on above: Performed By: #### L [id number] #### [facility] ([facility]) [address] [place] [address] Immature granulocytes (Bld) [#/Vol] 0.02 10*3/uL Normal 0.00-0.20 [facility] Comment on above: Performed By: #### L [id number] #### [facility] ([facility]) [address] [place] [address] Immature granulocytes/100 WBC (Bld) 0.3 % Normal 0.0-1.0 [facility] Comment on above: Performed By: #### L [id number] #### [facility] ([facility]) [address] [place] [address] Lymphocytes (Bld) [#/Vol] 2.34 10*3/uL Normal 1.20-4.00 [facility] Comment on above: Performed By: #### L [id number] #### [facility] ([facility]) [address] [place] [address] Lymphocytes/100 WBC (Bld) 32.6 % Normal 20.0-45.0 [facility] Comment on above: Performed By: #### L [id number] #### [facility] ([facility]) [address] [place] [address] MCH (RBC) [Entitic mass] 27.2 pg Normal 27.0-33.0 [facility] Comment on above: Performed By: #### L [id number] #### [facility] ([facility]) [address] [place] [address] MCV (RBC) [Entitic vol] 85.0 fL Normal 82.0-98.0 [facility] Comment on above: Performed By: #### L [id number] #### [facility] ([facility]) [address] [place] [address] Monocytes (Bld) [#/Vol] 0.49 10*3/uL Normal 0.10-1.00 [facility] Comment on above: Performed By: #### L [id number] #### [facility] ([facility]) [address] [place] [address] Monocytes/100 WBC (Bld) 6.8 % Normal 5.0-12.0 [facility] Comment on above: Performed By: #### L [id number] #### [facility] ([facility]) [address] [place] [address] Neutrophils (Bld) [#/Vol] 4.13 10*3/uL Normal 1.60-7.60 [facility] Comment on above: Performed By: #### L [id number] #### [facility] ([facility]) [address] [place] [address] Neutrophils/100 WBC (Bld) 57.5 % Normal 40.0-72.0 [facility] Comment on above: Performed By: #### L [id number] #### [facility] ([facility]) [address] [place] [address] NRBC (PER 100 WBCS) BY AUTOMATED COUNT 0.0 % Normal 0 [facility] Comment on above: Performed By: #### L [id number] #### [facility] ([facility]) [address] [place] [address] PLATELETS (10*3/UL) IN BLOOD AUTOMATED COUNT 245 10*3/uL Normal 150-400 [facility] Comment on above: Performed By: #### L [id number] #### [facility] ([facility]) [address] [place] [address] RBC (Bld) [#/Vol] 4.26 10*6/uL Normal 3.80-5.00 [facility] Comment on above: Performed By: #### L [id number] #### [facility] ([facility]) [address] [place] [address] WBC (Bld) [#/Vol] 7.18 10*3/uL Normal 4.00-10.60 [facility] Comment on above: Performed By: #### L [id number] #### [facility] ([facility]) [address] [place] [address] CONSULTon 07-11-2024 CONSULT -- Attestation signed by Armando Apodaca MD at 07/11/2024 4:17 PM By using the attestations below, I agree that I have read and verify that the documentation has been personally reviewed by me and ensure that the documentation accurately reflects the encounter. GC: I personally saw this patient on the day of the encounter, performed the zuniga portions of the service and participated in the management and treatment plan of the patient. I reviewed and confirm the documentation by the Cardiovascular Fellow Dr Usha San. Please note there may be an additional personal documentation from me. patient had recent coronary angiogram and PCI She has resistant hypertension that is not well-controlled despite 3 medications including clonidine, metoprolol, losartan She has finding of adrenal mass which is concerning for hyperaldosteronism and Conn's syndrome She has low potassium which could be consistent with high aldosterone levels We will test aldosterone and plasma renin levels After these blood tests are drawn we can also increase losartan to 100 mg daily and add spironolactone 25 mg daily She will likely need surgery for adrenal adenoma which will be done at a future date I have placed future orders for outpatient referrals to endocrine surgery and endocrinology. I believe Dr. Jackie Brown is the endocrine surgeon in the [place] area that would be most appropriate and I have placed an order for referral to her She is initially admitted with chest pain although troponins are negative and EKG is reassuring so this may be an atypical chest pain We will focus on hypertension management Please check 1 additional troponin to make sure troponins are negative If negative, then she can be discharged with plan for outpatient follow up with [place] [facility] and [facility] surgery and endocrinology Armando Apodaca MD Cardiology Consult Note Reason for Consult: Chest pain HPI: Aby Madrigal is a 59 y.o. female patient is presenting as a transfer from [facility] for the evaluation of chest pain. Past medical history includes: HTN History of TIA DMII HLD SURESH Overweight Patient had a recent cath with a stent placed in the LAD on 06/30. Patient reports that she started experiencing chest pain last night, described as uncomfortable , which brought her to the ED. Patient reports that she never had this type of pain before. She is compliant with her dual antiplatelet therapy. No nausea, vomiting or diaphoresis. Patient was seen and examined in the ED. She is chest pain free. Troponin negative-0.01. EKG no new ST T wave changes. Cardiology ROS: GENERAL: Denies fever, chills, night sweats, weight loss. CARDIOVASCULAR: Denies chest pain, exertional dyspnea, orthopnea/PND, lower extremity edema, palpitations, lightheadedness/dizzin ess, syncope. RESPIRATORY: Denies SOB, coughing, wheezing GI: Denies [...] Lisinopril, Norvasc [amlodipine], and Xanax [alprazolam] Medications (Not in a hospital admission) Last Recorded Vitals Patient Vitals for the past 24 hrs: BP Temp Temp src Pulse Resp SpO2 Height Weight 07/11/24 1247 176/60 -- -- 56 16 98 % -- -- 07/11/24 1217 173/80 -- -- 60 18 99 % -- -- 07/11/24 1146 165/61 -- -- 55 14 97 % -- -- 07/11/24 1026 151/63 -- -- 62 18 98 % -- -- 07/11/24 1025 -- 36.6 ???C (97.9 ???F) Oral 66 12 97 % 1.6 m (5' 3 ) 94.3 kg (208 lb) Physical Examination: GENERAL: AOx3, in no acute distress. HEAD: Atraumatic, normocephalic. EYES: CINDY, EOMI. NECK: No JVD present. CARDIAC: RRR. No murmur, rubs, or gallops. RESPIRATORY: CTAB, no increased effort of breathing. ABDOMEN: Soft, nontender, nondistended. EXTREMITIES: No lower extremity edema, peripheral pulses are 2+ bilaterally. NEURO: No focal deficits Relevant Lab Results Encounter Date: 07/11/24 ECG 12 lead Result Value Ventricular Rate 56 Atrial Rate 56 DC Interval 180 QRS DURATION 94 QT Interval 430 QTC (more content not included)... Normal [facility] EDPROVon 07-11-2024 EDPROV HPI Chief Complaint Patient presents with Chest Pain Patient had heart cath with 1 stent placed approx 10 days ago at this hospital, developed CP last evening Initial assessment completed by Dr. Jacobson at 1036. Aby Madrigal is a 59 y.o. female presenting to the ED with a chief complaint of chest pain. Pt states she has chest pain that started last night at 1030pm. Pt states the chest pain is in the middle of her chest and radiates to where her gallbladder used to be. Pt states she was trasnfered here from [place] to be transferred to cardiology. Pt states she had a cardiac stent placed last week. She denies fever, coughing, vomiting, abdominal pain. She admits diarrhea. She felt better when given ativan and worse when she was given morphine. She has had her gallbladder removed. History provided by: Patient spanish medical interpreter used: No Chest Pain Associated symptoms: no abdominal pain, no cough, no fever and no vomiting Musa Coma Scale Score: 15 Patient History Past Medical History: Diagnosis Date Abnormal ECG Diabetes mellitus (CMS/HCC) Hyperlipidemia Hypertension Obstructive sleep apnea Panic attacks Stroke (CMS/HCC) Past Surgical History: Procedure Laterality Date CEREBRAL ANGIOGRAM CHOLECYSTECTOMY HYSTERECTOMY TUBAL LIGATION Family History Problem Relation Name Age of Onset Lung cancer Mother No Known Problems Father Lung cancer Sister Social History Tobacco Use Smoking status: Former Packs/day: 1.00 Years: 45.00 Additional pack years: 0.00 Total pack years: 45.00 Types: Cigarettes Quit date: 2021 Years since quittin.6 Smokeless tobacco: Never Substance Use Topics Alcohol use: Not Currently Comment: Used to drink a lot on the weekend Drug use: Never Review of Systems Review of Systems Constitutional: Negative for fever. Respiratory: Negative for cough. Cardiovascular: Positive for chest pain. Gastrointestinal: Positive for diarrhea. Negative for abdominal pain and vomiting. Physical Exam ED Triage Vitals [07/11/24 1025] Temp Heart Rate Resp BP 36.6 ???C (97.9 ???F) 66 12 -- SpO2 Temp Source Heart Rate Source Patient Position 97 % Oral Monitor Lying BP Location FiO2 (%) Left arm -- Physical Exam Constitutional: General: She is not in acute distress. Appearance: Normal appearance. She is not ill-appearing or toxic-appearing. HENT: Head: Normocephalic and atraumatic. Mouth/Throat: Mouth: Mucous membranes are moist. Eyes: Conjunctiva/sclera: Conjunctivae normal. Cardiovascular: Rate and Rhythm: Normal rate and regular rhythm. Heart sounds: No murmur heard. Pulmonary: Effort: Pulmonary effort is normal. No respiratory distress. Breath sounds: Normal breath sounds. No stridor. Abdominal: General: There is no distension. Palpations: Abdomen is soft. Tenderness: There is no abdominal tenderness. Musculoskeletal: General: No swelling. Cervical back: Neck supple. Comments: Normal movement Skin: General: Skin is warm and dry. Capillary Refill: Capillary refill takes less than 2 seconds. Findings: No rash. Neurological: General: No focal deficit present. Mental Status: She is alert. Procedures ED Course & MDM Medical Decision Making Basilia Butts, documented on behalf of Dr. Jacobson. Chief complaint chest pain Plan of Care: APTT, Troponin I, CBC, Protime-INR, BMP Attestation: Provider Statement SALVADOR: Provider Statement 2nd Scribe. By electronically signing this emergency patient record, the Emergency Physician/SKATE SHOP ATTENDANT/PA-C attests that all entries made into the electronic medical record by the scribe prior to the Physician/SKATE SHOP ATTENDANT/PA-C signature reflect an accurate accounting of the evaluation and care rendered by that Emergency Physician/SKATE SHOP ATTENDANT/PA-C. The Emergency Physician/SKATE SHOP ATTENDANT/PA-C assumes full responsibility for those entries. The Emergency Physician/SKATE SHOP ATTENDANT/PA-C also attests that any patient testing or treatment that was instituted by nursing staff. [facility] EDPROV HPI Chief Complaint Patient presents with Chest Pain Patient had heart cath with 1 stent placed approx 10 days ago at this hospital, developed CP last evening Initial assessment completed by Dr. Jacobson at 1036. Aby Madrigal is a 59 y.o. female presenting to the ED with a chief complaint of chest pain. Pt states she has chest pain that started last night at 1030pm. Pt states the chest pain is in the middle of her chest and radiates to where her gallbladder used to be. Pt states she was trasnfered here from [place] to be transferred to cardiology. Pt states she had a cardiac stent placed last week. She denies fever, coughing, vomiting, abdominal pain. She admits diarrhea. She felt better when given ativan and worse when she was given morphine. She has had her gallbladder removed. History provided by: Patient spanish medical interpreter used: No Chest Pain Associated symptoms: no abdominal pain, no cough, no fever and no vomiting Musa Coma Scale Score: 15 Patient History Past Medical History: Diagnosis Date Abnormal ECG Diabetes mellitus ([facility]) Hyperlipidemia Hypertension Obstructive sleep apnea Panic attacks Stroke ([facility]) Past Surgical History: Procedure Laterality Date CEREBRAL ANGIOGRAM CHOLECYSTECTOMY HYSTERECTOMY TUBAL LIGATION Family History Problem Relation Name Age of Onset Lung cancer Mother No Known Problems Father Lung cancer Sister Social History Tobacco Use Smoking status: Former Packs/day: 1.00 Years: 45.00 Additional pack years: 0.00 Total pack years: 45.00 Types: Cigarettes Quit date: 2021 Years since quittin.6 Smokeless tobacco: Never Substance Use Topics Alcohol use: Not Currently Comment: Used to drink a lot on the weekend Drug use: Never Review of Systems Review of Systems Constitutional: Negative for fever. Respiratory: Negative for cough. Cardiovascular: Positive for chest pain. Gastrointestinal: Positive for diarrhea. Negative for abdominal pain and vomiting. Physical Exam ED Triage Vitals [07/11/24 1025] Temp Heart Rate Resp BP 36.6 ???C (97.9 ???F) 66 12 -- SpO2 Temp Source Heart Rate Source Patient Position 97 % Oral Monitor Lying BP Location FiO2 (%) Left arm -- Physical Exam Vitals reviewed. Constitutional: General: She is not in acute distress. Appearance: Normal appearance. She is not ill-appearing or toxic-appearing. HENT: Head: Normocephalic and atraumatic. Mouth/Throat: Mouth: Mucous membranes are moist. Eyes: Conjunctiva/sclera: Conjunctivae normal. Cardiovascular: Rate and Rhythm: Normal rate and regular rhythm. Heart sounds: No murmur heard. Pulmonary: Effort: Pulmonary effort is normal. No respiratory distress. Breath sounds: Normal breath sounds. No stridor. Abdominal: General: There is no distension. Palpations: Abdomen is soft. Tenderness: There is no abdominal tenderness. Musculoskeletal: General: No swelling. Cervical back: Neck supple. Comments: Normal movement Skin: General: Skin is warm and dry. Capillary Refill: Capillary refill takes less than 2 seconds. Findings: No rash. Neurological: General: No focal deficit present. Mental Status: She is alert. Psychiatric: Mood and Affect: Mood normal. Behavior: Behavior normal. Critical Care Performed by: Federica Jacobson MD Authorized by: Federica Jacobson MD Critical care provider statement: Critical care time (minutes): 30 Critical care start time: 07/11/2024 10:55 AM Critical care end time: 07/11/2024 11:25 AM Critical care was necessary to treat or prevent imminent or life-threatening deterioration of the following conditions: Cardiac failure Critical care was time spent personally by me on the following activities: Blood draw for specimens, development of treatment plan with patient or surrogate, discussions with consultants, evaluation of patient's response to treatment, examination of patient, interpretation of cardiac output measurements, obtaining history from patient or surrogate, review of old charts, re-evaluation of patient's condition, pulse oximetry, ordering and review of laboratory studies, ordering and review of radiographic studies and ordering and performing treatments and interventions ED Course & MDM ED Course as of 07/11/24 1256 [facility] Jul 11, 2024 1041 Cardiology consulted [AT] ED Course User Index [AT] Federica Jacobson MD Diagnoses as of 07/11/24 1256 NSTEMI (non-ST elevated myocardial infarction) ([facility]) Medical Decision Making Amount and/or Complexity of Data Reviewed Labs: ordered. Decision-making details documented in ED Course. ECG/medicine tests: ordered and independent interpretation performed. Decision-making details documented in ED Course. Risk Drug therapy requiring intensive monitoring for toxicity. Decision regarding hospitalization. Minor surgery with identified risk factors. I, Basilia diallo (more content not included)... Invalid Interpretation Code [facility] POCT GLUCOSE METER UNSOLICIT ED RESULTSon 07-11-2024 Glucose [Mass/Vol] 122 mg/dL High 70-105 [facility] Comment on above: Order Comment: Waive d Testing in the ED is performed under the ED CLIA certificate #[id number]. Result Comment: elton [email or web address] Performed By: #### L [id number] #### [facility] ([employer]) [address] [place] [address] PROTIME-INRon 07-11-2024 INR IN PPP BY COAGULATION ASSAY 1.00 Normal 0.90-1.10 [facility] Comment on above: Result Comment: ACCC [...] RANGE. CHEST 1995;108:[id number]. Performed By: #### L [id number] #### [facility] ([facility]) [address] [place] [address] PROTHROMBIN TIME (PT) IN PPP BY COAGULATION ASSAY 13.2 Seconds Normal 12.3-14.8 [facility] Comment on above: Performed By: #### L [id number] #### [facility] ([facility]) [address] [place] [address] RENIN ACTIVITYon 07-11-2024 RENIN ACTIVITY <0.1 Normal [facility] Comment on above: Result Comment: INTE RPRETIVE INFORMATION: Renin Activity Adult, Normal sodium diet: Supine ................. 0.2-1.6 ng/mL/hr Upright ................ 0.5-4.0 ng/mL/hr Children, Normal sodium diet, Supine: [place] (1-7 days) ..... 2.0-35.0 ng/mL/hr Cord blood ............. 4.0-32.0 ng/mL/hr 1-12 mos ............... 2.4-37.0 ng/mL/hr 13 mos-3 yrs ........... 1.7-11.2 ng/mL/hr 4-5 yrs ................ 1.0- 6.5 ng/mL/hr 6-10 yrs ............... 0.5- 5.9 ng/mL/hr 11-15 yrs .............. 0.5- 3.3 ng/mL/hr Children, normal sodium diet, Upright: 0-3 yrs ................ Not Available 4-5 yrs ................ Less than or equal to 15 ng/mL/hr 6-10 yrs ............... Less than or equal to 17 ng/mL/hr 11-15 yrs .............. Less than or equal to 16 ng/mL/hr Plasma renin activity measures enzyme ability to convert angiotensinogen to angiotensin I and is limited by the availability of angiotensinogen. Plasma renin activity is not an accurate indicator of enzyme activity when angiotensinogen is decreased. This test was developed and its performance characteristics determined by [facility]. It has not been cleared or approved by the [place] Food and Drug Administration. This test was performed in a CLIA certified laboratory and is intended for clinical purposes. Performed By: [facility] [address] [place] [id number] [employer] Instructor: Navneet Simeon MD, PhD CLIA Number: [id number] Performed By: #### L [id number] #### [facility] ([facility]) [address] [place] [address] TROPONIN Ion 07-11-2024 Troponin I.cardiac [Mass/Vol] 0.01 ng/mL Normal 0.00-0.04 [facility] Comment on above: Performed By: #### L [id number] #### [facility] ([facility]) [address] [place] [address] Office Visiton 07-10-2024 Follow-up visit [id number] Aby Madrigal 1965 F Date Provider Department Center 07/10/2024 [id number]-OWMJAGBIJAN VAZQUEZ RIAZ [place] Family History Problem Relation Age of Onset Lung cancer Mother No Known Problems Father Lung cancer Sister Family Status - Relation Status Age at Mother Father Sister Level of Service:67992 DC OFFICE/OUTPATIENT ESTABLISHED MOD MDM 30 MIN Reason for Visit and Comments: Coronary Artery Disease [187] Post-Cath [731] Normal [facility] 36on 07-03-2024 36 Post Discharge Call Good morning, I am Ginny Kirkland, RN a lead nurse from [facility]. I am calling you to follow [...] No Patient Name Aby Madrigal Date 07/03/24 Normal [facility] Telephoneon 07-03-2024 Telephone [id number] Aby Madrigal 1965 F Date Provider Department Center 07/03/2024 Adela-GINNY KIRKLAND [facility] Family History Problem Relation Age of Onset Lung cancer Mother No Known Problems Father Lung cancer Sister Family Status - Relation Status Age at Mother Father Sister Reason for Visit and Comments: Hospital Follow-up [832] Normal [facility] 30on 07-01-2024 30 The patient is [...] and maintained or improved Outcome: Progressing Normal [facility] BASIC METABOLIC PANELon 06-22 Anion gap [Moles/Vol] 14 mmol/L Normal - [facility] Comment on above: Performed By: #### L [id number] #### [facility] ([facility]) [address] [place] [address] Calcium [Mass/Vol] 8.2 mg/dL Low 8.6-10.3 [facility] Comment on above: Performed By: #### L [id number] #### [facility] ([facility]) [address] [place] [address] Chloride [Moles/Vol] 106 mmol/L Normal 98-107 [facility] Comment on above: Performed By: #### L [id number] #### [facility] ([facility]) [address] [place] [address] CO2 [Moles/Vol] 25 mmol/L Normal 21-31 [facility] Comment on above: Performed By: #### L [id number] #### [facility] ([facility]) [address] [place] [address] Creatinine [Mass/Vol] 0.91 mg/dL Normal 0.60-1.20 [facility] Comment on above: Performed By: #### L [id number] #### [facility] ([facility]) [address] [place] [address] GLOMERULAR FILTRATION RATE ML/MIN/1.73 SQ M.PREDICTED 72.2 mL/min/1.73m*2 Normal >60.0 [facility] Comment on above: Result Comment: The [facility]???s estimated glomerular filtration rate (eGFR) will [...] individuals. Performed By: #### L [id number] #### [facility] ([facility]) [address] [place] [address] Glucose [Mass/Vol] 101 mg/dL High 70-100 [facility] Comment on above: Performed By: #### L [id number] #### [facility] ([facility]) [address] [place] [address] Potassium [Moles/Vol] 3.5 mmol/L Normal 3.5-5.1 [facility] Comment on above: Performed By: #### L [id number] #### [facility] ([facility]) [address] [place] [address] Sodium [Moles/Vol] 141 mmol/L Normal 136-145 [facility] Comment on above: Performed By: #### L [id number] #### [facility] ([facility]) [address] [place] [address] Urea nitrogen [Mass/Vol] 13 mg/dL Normal 7-25 [facility] Comment on above: Performed By: #### L [id number] #### [facility] ([facility]) [address] [place] [address] UREA NITROGEN/CREATININE (MASS RATIO) IN SER/PLAS 14.3 Normal [facility] Comment on above: Performed By: #### L [id number] #### [facility] ([facility]) [address] [place] [address] CBCon 07-01-2024 Erythrocyte distribution width (RBC) [Ratio] 15.4 % High 11.5-15.0 [facility] Comment on above: Performed By: #### L [id number] #### [facility] ([facility]) [address] [place] [address] ERYTHROCYTE MEAN CORPUSCULAR HEMOGLOBIN CONCENTRATION (G/DL) BY AUTOMATED 32.1 g/dL Normal 32.0-35.0 [facility] Comment on above: Performed By: #### L [id number] #### [facility] ([facility]) [address] [place] [address] Hematocrit (Bld) [Volume fraction] 38.6 % Normal 36.0-48.0 [facility] Comment on above: Performed By: #### L [id number] #### [facility] ([facility]) [address] [place] [address] Hemoglobin (Bld) [Mass/Vol] 12.4 g/dL Normal 12.0-15.0 [facility] Comment on above: Performed By: #### L [id number] #### [facility] ([facility]) [address] [place] [address] MCH (RBC) [Entitic mass] 26.9 pg Low 27.0-33.0 [facility] Comment on above: Performed By: #### L [id number] #### [facility] ([facility]) [address] [place] [address] MCV (RBC) [Entitic vol] 83.7 fL Normal 82.0-98.0 [facility] Comment on above: Performed By: #### L [id number] #### [facility] ([facility]) [address] [place] [address] PLATELETS (10*3/UL) IN BLOOD AUTOMATED COUNT 238 10*3/uL Normal 150-400 [facility] Comment on above: Performed By: #### L [id number] #### [facility] ([facility]) [address] [place] [address] RBC (Bld) [#/Vol] 4.61 10*6/uL Normal 3.80-5.00 [facility] Comment on above: Performed By: #### L [id number] #### [facility] ([facility]) [address] [place] [address] WBC (Bld) [#/Vol] 7.04 10*3/uL Normal 4.00-10.60 [facility] Comment on above: Performed By: #### L [id number] #### [facility] ([facility]) [address] [place] [address] LIPID PANELon 07-01-2024 CHOL/HDL 3.8 mg/dL Normal [facility] Comment on above: Performed By: #### L [id number] #### [facility] ([facility]) [address] [place] [address] Cholesterol [Mass/Vol] 128 mg/dL Normal 120-200 [facility] Comment on above: Performed By: #### L [id number] #### [facility] ([facility]) [address] [place] [address] Magnesium [Mass/Vol] 87 mg/dL Normal 40-149 [facility] Comment on above: Result Comment: TRIG LYCERIDE REFERENCE RANGE: 20 YEARS AND OLDER CARDIOVASCULAR RISK LESS THAN 150 mg/dL LOW RISK 150 TO 199 mg/dL BORDERLINE RISK 200 mg/dL AND GREATER HIGH RISK Performed By: #### L [id number] #### [facility] ([facility]) [address] [place] [address] Magnesium [Mass/Vol] 77 mg/dL Normal 0-160 [facility] Comment on above: Performed By: #### L [id number] #### [facility] ([facility]) [address] [place] [address] Magnesium [Mass/Vol] 34 mg/dL Normal 23-92 [facility] Comment on above: Performed By: #### L [id number] #### [facility] ([facility]) [address] [place] [address] NON HDL CHOL. (LDL+VLDL) 94 Normal [facility] Comment on above: Performed By: #### L [id number] #### [facility] ([facility]) [address] [place] [address] TOTAL VLDL-C 17 mg/dL Normal 0-40 [facility] Comment on above: Performed By: #### L [id number] #### [facility] ([facility]) [address] [place] [address] MAGNESIUMon 07-01-2024 Magnesium [Mass/Vol] 2.0 mg/dL Normal 1.9-2.7 [facility] Comment on above: Performed By: #### L [id number] #### [facility] ([facility]) [address] [place] [address] NURSNOTEon 07-01-2024 NURSNOTE Discharge instructio ns given, reviewed, questions, answered, signed, copy received. Normal [facility] POCT GLUCOSE METER UNSOLICIT ED RESULTSon 07-01-2024 Glucose [Mass/Vol] 124 mg/dL High 70-105 [facility] Comment on above: Order Comment: Waive d Testing in the ED is performed under the ED CLIA certificate #[id number]. Result Comment: [email or web address] Performed By: #### L [id number] #### [facility] ([facility]) [address] [place] [address] Glucose [Mass/Vol] 106 mg/dL High 70-105 [facility] Comment on above: Order Comment: Waive d Testing in the ED is performed under the ED CLIA certificate #[id number]. Result Comment: [email or web address] Performed By: #### L [id number] #### [facility] ([facility]) [address] [place] [address] TROPONIN Ion 07-01-2024 Troponin I.cardiac [Mass/Vol] 0.09 ng/mL High 0.00-0.04 [facility] Comment on above: Performed By: #### L [id number] #### [facility] ([facility]) [address] [place] [address] 30on 06-30-2024 30 The patient is Moderately Stable - Low risk of patient condition declining or worsening The patient's goals for the shift include comfort, rest The clinical goals for the shift include stable vitals, comfort Problem: Pain - Adult Goal: Verbalizes/displays adequate comfort level or baseline comfort level Outcome: Not Progressing [facility] 30 Daily Case Managemen t Update [...] PT Recommendations: OT Recommendations: New Consults: Normal [facility] 30 The patient is Moderately Stable - Low risk of patient condition declining or worsening The patient's goals for the shift include COMFORT The clinical goals for the shift include VSS Over the shift, the patient did not make progress toward the following goals. Barriers to progression include . Recommendations to address these barriers include . Normal [facility] ANTI-XA (HEPARIN LEVEL)on HEPARIN UNFRACTIONATED (U/ML) IN PPP BY CHROMOGENIC METHOD 0.64 IU/mL Normal 0.3-0.7 [facility] Comment on above: Order Comment: Check anti-Xa level every 6 hours while on heparin infusion, or per protocol. Result Comment: Radha roxaban and Apixaban will interfere with the anti Xa assay used to monitor UFH and LMWH. Performed By: #### L [id number] #### [facility] ([facility]) [address] [place] [address] BASIC METABOLIC PANELon Anion gap [Moles/Vol] 11 mmol/L Normal 7-20 [facility] Comment on above: Performed By: #### L [id number] #### [facility] ([facility]) [address] [facility] [place] [address] Calcium [Mass/Vol] 8.3 mg/dL Low 8.6-10.3 [facility] Comment on above: Performed By: #### L [id number] #### [facility] ([facility]) [address] [place] [address] Chloride [Moles/Vol] 110 mmol/L High 98-107 [facility] Comment on above: Performed By: #### L [id number] #### [facility] ([facility]) [address] [place] [address] CO2 [Moles/Vol] 26 mmol/L Normal 21-31 [facility] Comment on above: Performed By: #### L [id number] #### [facility] ([facility]) [address] [place] [address] Creatinine [Mass/Vol] 0.81 mg/dL Normal 0.60-1.20 [facility] Comment on above: Performed By: #### L [id number] #### [facility] ([facility]) [address] [place] [address] GLOMERULAR FILTRATION RATE ML/MIN/1.73 SQ M.PREDICTED 83.1 mL/min/1.73m*2 Normal >60.0 [facility] Comment on above: Result Comment: The [facility]???s estimated glomerular filtration rate (eGFR) will [...] group of individuals. Performed By: #### L [id number] #### [facility] ([facility]) [address] [place] [address] Glucose [Mass/Vol] 110 mg/dL High 70-100 [facility] Comment on above: Performed By: #### L [id number] #### [facility] ([facility]) [address] [place] [address] Potassium [Moles/Vol] 3.7 mmol/L Normal 3.5-5.1 [facility] Comment on above: Performed By: #### L [id number] #### [facility] ([facility]) [address] [place] [address] Sodium [Moles/Vol] 143 mmol/L Normal 136-145 [facility] Comment on above: Performed By: #### L [id number] #### [facility] ([facility]) [address] [place] [address] Urea nitrogen [Mass/Vol] 10 mg/dL Normal 7-25 [facility] Comment on above: Performed By: #### L [id number] #### [facility] ([facility]) [address] [place] [address] UREA NITROGEN/CREATININE (MASS RATIO) IN SER/PLAS 12.3 Normal [facility] Comment on above: Performed By: #### L [id number] #### [facility] ([facility]) [address] [place] [address] CBCon 06-30-2024 Erythrocyte distribution width (RBC) [Ratio] 15.3 % High 11.5-15.0 [facility] Comment on above: Performed By: #### L [id number] #### [facility] ([facility]) [address] [place] [address] ERYTHROCYTE MEAN CORPUSCULAR HEMOGLOBIN CONCENTRATION (G/DL) BY AUTOMATED 31.3 g/dL Low 32.0-35.0 [facility] Comment on above: Performed By: #### L [id number] #### [facility] ([facility]) [address] [place] [address] Hematocrit (Bld) [Volume fraction] 36.7 % Normal 36.0-48.0 [facility] Comment on above: Performed By: #### L [id number] #### [facility] ([facility]) [address] [place] [address] Hemoglobin (Bld) [Mass/Vol] 11.5 g/dL Low 12.0-15.0 [facility] Comment on above: Performed By: #### L [id number] #### [facility] ([facility]) [address] [place] [address] MCH (RBC) [Entitic mass] 26.9 pg Low 27.0-33.0 [facility] Comment on above: Performed By: #### L [id number] #### [facility] ([facility]) [address] [place] [address] MCV (RBC) [Entitic vol] 85.7 fL Normal 82.0-98.0 [facility] Comment on above: Performed By: #### L [id number] #### [facility] ([facility]) [address] [place] [address] PLATELETS (10*3/UL) IN BLOOD AUTOMATED COUNT 243 10*3/uL Normal 150-400 [facility] Comment on above: Performed By: #### L [id number] #### [facility] ([facility]) [address] [place] [address] RBC (Bld) [#/Vol] 4.28 10*6/uL Normal 3.80-5.00 [facility] Comment on above: Performed By: #### L [id number] #### [facility] ([facility]) [address] [place] [address] WBC (Bld) [#/Vol] 7.41 10*3/uL Normal 4.00-10.60 [facility] Comment on above: Performed By: #### L [id number] #### [facility] ([facility]) [address] [place] [address] CONSULTon 06-30-2024 CONSULT Cardiology Consult Note Reason for Consult: NSTEMI, transfer from [facility] HPI: Aby Madrigal, a 59 y.o. female patient, is transferred from [facility] for continuity of care. Past medical history includes: HTN History of TIA DMII HLD SURESH Overweight Patient reports that 3 days ago, she woke up in the mid of the night with indigestion, and a feeling fullness, but no pressure like chest pain. She presented to [facility], where she was found to be hypertensive. [...] Value Ventricular Rate 71 Atrial Rate 71 DC Interval 176 QRS DURATION 92 QT Interval 424 QTC CALCULATION(BAZETT) 460 P [place] 52 R-[place] 19 T Wave [place] 164 Impression Normal sinus rhythm Left ventricular hypertrophy with repolarization abnormality ( R in aVL , [place] product ) Abnormal ECG No previous ECGs available Lab Results Component Value Date TROPONINI 0.10 (H) 06/29/2024 No echocardiogram results found for the past 12 months No nuclear medicine results found for the past 12 months Relevant Imaging Results ECG 12 lead Normal sinu (more content not included)... Normal [facility] HPon 06-30-2024 H&P reviewed. The patient was examined and there are no changes to the H&P. 59 y.o. year old female with a PMHx significant for DM2, hypertension presents a direct mission from [facility] with a chief complaint of chest pain [...] to proceed. Signed, Yris Oakley MD PGY-4 [employer] Pager: [phone] [facility] POCT GLUCOSE METER UNSOLICIT ED RESULTSon 06-30-2024 Glucose [Mass/Vol] 170 mg/dL High 70-105 [facility] Comment on above: Order Comment: Waive d Testing in the ED is performed under the ED CLIA certificate #[id number]. Result Comment: [email or web address] Performed By: #### L [id number] #### [facility] ([facility]) [address] [place] [address] Glucose [Mass/Vol] 129 mg/dL High 70-105 [facility] Comment on above: Order Comment: Waive d Testing in the ED is performed under the ED CLIA certificate #[id number]. Result Comment: [email or web address] Performed By: #### L [id number] #### [facility] ([facility]) [address] [place] [address] Glucose [Mass/Vol] 167 mg/dL High 70-105 [facility] Comment on above: Order Comment: Waive d Testing in the ED is performed under the ED CLIA certificate #[id number]. Result Comment: [email or web address] Performed By: #### L [id number] #### [facility] ([facility]) [address] [place] [address] TROPONIN Ion 06-30-2024 Troponin I.cardiac [Mass/Vol] 0.07 ng/mL High 0.00-0.04 [facility] Comment on above: Performed By: #### L [id number] #### [facility] ([facility]) [address] [place] [address] Troponin I.cardiac [Mass/Vol] 0.10 ng/mL High 0.00-0.04 [facility] Comment on above: Performed By: #### L [id number] #### [facility] ([facility]) [address] [place] [address] Troponin I.cardiac [Mass/Vol] 0.11 ng/mL Critically high 0.00-0.04 [facility] Comment on above: Result Comment: M-TR OPONIN INITIAL CRITICAL HIGH; RESPUN AND RETESTED Performed By: #### L [id number] #### [facility] ([facility]) [address] [place] [address] 30on 06-29-2024 30 The patient is Moderately Stable - Low risk of patient condition declining or worsening The patient's goals for the shift include COMFORT The clinical goals for the shift include VSS Normal [facility] APTTon 06-29-2024 ACTIVATED PARTIAL THROMBOPLASTIN TIME IN PPP BY COAGULATION ASSAY 34.5 Seconds Normal 25.0-35.0 [facility] Comment on above: Order Comment: Basel ine aPTT before initiating heparin infusion. Result Comment: Clin ical significance of the APTT is questionable in the presence of heparin. Performed By: #### L [id number] #### [facility] ([facility]) [address] [place] [address] B-TYPE NATRIURETIC PEPTIDEon 06-29-2024 Natriuretic peptide B (Bld) [Mass/Vol] 222 pg/mL High 0-100 [facility] Comment on above: Performed By: #### L [id number] #### [facility] ([facility]) [address] [place] [address] CBC WITH AUTO DIFFERENTIALon 06-29-2024 Basophils (Bld) [#/Vol] 0.05 10*3/uL Normal 0.00-0.20 [facility] Comment on above: Performed By: #### L [id number] #### [facility] ([facility]) [address] [place] [address] Basophils/100 WBC (Bld) 0.6 % Normal 0.0-1.0 [facility] Comment on above: Performed By: #### L [id number] #### [facility] ([facility]) [address] [place] [address] Eosinophils (Bld) [#/Vol] 0.18 10*3/uL Normal 0.00-0.50 [facility] Comment on above: Performed By: #### L [id number] #### [facility] ([facility]) [address] [place] [address] Eosinophils/100 WBC (Bld) 2.1 % Normal 0.0-6.0 [facility] Comment on above: Performed By: #### L [id number] #### [facility] ([facility]) [address] [place] [address] Erythrocyte distribution width (RBC) [Ratio] 14.9 % Normal 11.5-15.0 [facility] Comment on above: Performed By: #### L [id number] #### [facility] ([facility]) [address] [place] [address] ERYTHROCYTE MEAN CORPUSCULAR HEMOGLOBIN CONCENTRATION (G/DL) BY AUTOMATED 32.9 g/dL Normal 32.0-35.0 [facility] Comment on above: Performed By: #### L [id number] #### [facility] ([facility]) [address] [place] [address] Hematocrit (Bld) [Volume fraction] 35.9 % Low 36.0-48.0 [facility] Comment on above: Performed By: #### L [id number] #### [facility] ([facility]) [address] [place] [address] Hemoglobin (Bld) [Mass/Vol] 11.8 g/dL Low 12.0-15.0 [facility] Comment on above: Performed By: #### L [id number] #### [facility] ([facility]) [address] [place] [address] Immature granulocytes (Bld) [#/Vol] 0.03 10*3/uL Normal 0.00-0.20 [facility] Comment on above: Performed By: #### L [id number] #### [facility] ([facility]) [address] [place] [address] Immature granulocytes/100 WBC (Bld) 0.3 % Normal 0.0-1.0 [facility] Comment on above: Performed By: #### L [id number] #### [facility] ([facility]) [address] [place] [address] Lymphocytes (Bld) [#/Vol] 2.02 10*3/uL Normal 1.20-4.00 [facility] Comment on above: Performed By: #### L [id number] #### [facility] ([facility]) [address] [place] [address] Lymphocytes/100 WBC (Bld) 23.5 % Normal 20.0-45.0 [facility] Comment on above: Performed By: #### L [id number] #### [facility] ([facility]) [address] [place] [address] MCH (RBC) [Entitic mass] 27.2 pg Normal 27.0-33.0 [facility] Comment on above: Performed By: #### L [id number] #### [facility] ([facility]) [address] [place] [address] MCV (RBC) [Entitic vol] 82.7 fL Normal 82.0-98.0 [facility] Comment on above: Performed By: #### L [id number] #### [facility] ([facility]) [address] [place] [address] Monocytes (Bld) [#/Vol] 0.56 10*3/uL Normal 0.10-1.00 [facility] Comment on above: Performed By: #### L [id number] #### [facility] (BEAK[facility]) [address] [place] [address] Monocytes/100 WBC (Bld) 6.5 % Normal 5.0-12.0 [facility] Comment on above: Performed By: #### L [id number] #### [facility] ([facility]) [address] [place] [address] Neutrophils (Bld) [#/Vol] 5.74 10*3/uL Normal 1.60-7.60 [facility] Comment on above: Performed By: #### L [id number] #### [facility] ([facility]) [address] [place] [address] Neutrophils/100 WBC (Bld) 67.0 % Normal 40.0-72.0 [facility] Comment on above: Performed By: #### L [id number] #### [facility] ([facility]) [address] [place] [address] NRBC (PER 100 WBCS) BY AUTOMATED COUNT 0.0 % Normal 0 [facility] Comment on above: Performed By: #### L [id number] #### [facility] ([facility]) [address] [place] [address] PLATELETS (10*3/UL) IN BLOOD AUTOMATED COUNT 233 10*3/uL Normal 150-400 [facility] Comment on above: Performed By: #### L [id number] #### [facility] ([facility]) [address] [place] [address] RBC (Bld) [#/Vol] 4.34 10*6/uL Normal 3.80-5.00 [facility] Comment on above: Performed By: #### L [id number] #### [facility] ([facility]) [address] [place] [address] WBC (Bld) [#/Vol] 8.58 10*3/uL Normal 4.00-10.60 [facility] Comment on above: Performed By: #### L [id number] #### [facility] ([facility]) [address] [place] [address] COMPREHENSIVE METABOLIC PANE Alec 06-29-2024 Albumin [Mass/Vol] 3.8 g/dL Normal 3.5-5.7 [facility] Comment on above: Performed By: #### L [id number] #### [facility] ([facility]) [address] [place] [address] ALP [Catalytic activity/Vol] 64 U/L Normal 34-104 [facility] Comment on above: Performed By: #### L [id number] #### [facility] ([facility]) [address] [place] [address] ALT [Catalytic activity/Vol] 35 U/L Normal 7-52 [facility] Comment on above: Performed By: #### L [id number] #### [facility] ([facility] [address] [place] [address] Anion gap [Moles/Vol] 12 mmol/L Normal 7-20 [facility] Comment on above: Performed By: #### L [id number] #### [facility] ([facility]) [address] [place] [address] AST [Catalytic activity/Vol] 21 U/L Normal 13-39 [facility] Comment on above: Performed By: #### L [id number] #### [facility] ([facility]) [address] [place] [address] Bilirubin [Mass/Vol] 0.4 mg/dL Normal 0.3-1.0 [facility] Comment on above: Performed By: #### L [id number] #### [facility] ([facility]) [address] [place] [address] Calcium [Mass/Vol] 8.5 mg/dL Low 8.6-10.3 [facility] Comment on above: Performed By: #### L [id number] #### [facility] ([facility]) [address] [place] [address] Chloride [Moles/Vol] 112 mmol/L High 98-107 [facility] Comment on above: Performed By: #### L [id number] #### [facility] ([facility]) [address] [place] [address] CO2 [Moles/Vol] 22 mmol/L Normal 21-31 [facility] Comment on above: Performed By: #### L [id number] #### [facility] ([facility]) [address] [place] [address] Creatinine [Mass/Vol] 0.92 mg/dL Normal 0.60-1.20 [facility] Comment on above: Performed By: #### L [id number] #### [facility] ([facility]) [address] [facility] [place] [address] GLOMERULAR FILTRATION RATE ML/MIN/1.73 SQ M.PREDICTED 71.3 mL/min/1.73m*2 Normal >60.0 [facility] Comment on above: Result Comment: [facility]???s estimated glomerular filtration rate (eGFR) will [...] group of individuals. Performed By: #### L [id number] #### [facility] ([facility]) [address] [place] [address] Glucose [Mass/Vol] 108 mg/dL High 70-100 [facility] Comment on above: Performed By: #### L [id number] #### [facility] ([facility]) [address] [place] [address] Potassium [Moles/Vol] 3.7 mmol/L Normal 3.5-5.1 [facility] Comment on above: Performed By: #### L [id number] #### [facility] ([facility]) [address] [place] [address] Protein [Mass/Vol] 6.1 g/dL Normal 6.0-8.3 [facility] Comment on above: Performed By: #### L [id number] #### [facility] ([facility]) [address] [place] [address] Sodium [Moles/Vol] 142 mmol/L Normal 136-145 [facility] Comment on above: Performed By: #### L [id number] #### [facility] ([facility]) [address] [place] [address] Urea nitrogen [Mass/Vol] 11 mg/dL Normal 7-25 [facility] Comment on above: Performed By: #### L [id number] #### [facility] ([facility]) [address] [place] [address] UREA NITROGEN/CREATININE (MASS RATIO) IN SER/PLAS 12.0 Normal [facility] Comment on above: Performed By: #### L [id number] #### [facility] ([facility]) [address] [place] [address] MAGNESIUMon 06-29-2024 Magnesium [Mass/Vol] 1.7 mg/dL Low 1.9-2.7 [facility] Comment on above: Performed By: #### L [id number] #### [facility] ([facility]) [address] [place] [address] PHOSPHORUSon 06-29-2024 Magnesium [Mass/Vol] 2.9 mg/dL Normal 2.5-5.0 [facility] Comment on above: Performed By: #### L [id number] #### [facility] ([facility]) [address] [place] [address] PROTIME-INRon 06-29-2024 INR IN PPP BY COAGULATION ASSAY 0.99 Normal 0.90-1.10 [facility] Comment on above: Result Comment: ACCC [...] RANGE. CHEST 1995;108:231S-246S. Performed By: #### L [id number] #### [facility] ([facility]) [address] [place] [address] PROTHROMBIN TIME (PT) IN PPP BY COAGULATION ASSAY 13.1 Seconds Normal 12.3-14.8 [facility] Comment on above: Performed By: #### L [id number] #### [facility] ([facility]) [address] [place] [address] TROPONIN Ion 06-29-2024 Troponin I.cardiac [Mass/Vol] 0.10 ng/mL High 0.00-0.04 [facility] Comment on above: Performed By: #### L [id number] #### [facility] ([facility]) [address] [place] [address] Office Visiton 06-21-2024 Follow-up visit [id number] Aby Madrigal 1965 F Date Provider Department Center 06/21/2024 GOMEZ KENDALL RIAZ [place] Family History Problem Relation Age of Onset Lung cancer Mother No Known Problems Father Lung cancer Sister Family Status - Relation Status Age at Mother Father Sister Level of Service:60808 DC OFFICE/OUTPATIENT ESTABLISHED MOD MDM 30 MIN Normal [facility] Office Visiton 05-26-2024 Follow-up visit [id number] EmmadamianSanjana spencety S 1965 F Date Provider Department Center 05/26/2024 [id number] GRADY RIAZ [place] Family History Problem Relation Age of Onset Lung cancer Mother No Known Problems Father Lung cancer Sister Family Status - Relation Status Age at Mother Father Sister Level of Service:49313 DC OFFICE/OUTPATIENT NEW MODERATE MDM 45 MINUTES Normal [facility] Outside Colonoscopyon 2022 Outside Colonoscopy [id number] 0CD:127 Normal [facility] Reminderson 11-27-2022 Reminders - From: Na Hayes LPN To: GSN - Clinical; Sent: 11/27/2022 12:46:10 EST Show up: 10/25/2032 07:00:00 EST Subject: colonoscopy recall Due Date/Time: 11/25/2032 07:00:00 EST Reminder/Recall Patient is due for screening colonoscopy 11/25/2032. Normal [facility] Lab Reportson 11-24-2022 Lab Reports [id number] 0CD:127 Normal [facility] Covid-19 PCR (CVDTB)on 10-24 SARS-CoV-2 (COVID-19) RNA BECK+probe Ql (Unsp spec) Not detected Normal NOT DETECTED [facility] Comment on above: Result Comment: This test is not yet approved or cleared by the [place] FDA. When there are no FDA-approved or cleared tests available, and other criteria are met, FDA can make tests available under an emergency access mechanism called an Emergency Use Authorization (EUA). The EUA for this test is supported by the [employer] Operator of Health and Human Service's (HHS's) declaration [...] consistent with SARS-CoV-2. Performed By: #### C [facility] #### [facility] [address] [address] [address] Rich Cutler Consent for Procedure/Surger yoramona 10-07-2022 Consent for Procedure/Surgery [id number] 0CD:127 Normal [facility] Ambulatory Visit Summaryon 1 12-06-2021 Ambulatory [...] Allergic conjunctivitis Anticoagulated Kidney stones Normal [facility] VC VENOUS REFLUX NINO LMTon 1 12-02-2021 VC VENOUS REFLUX NINO LMT Patient: ABY MADRIGAL Exam Date: 10/02/2022 : 1965 Gender:F Ordering : DR KENDAR MURILLO . Admission #: [id number] Family : Order #: [id number] CLICK HERE TO VIEW EXAM RADIOLOGY REPORT [...] chronic thrombus visualized Compressibility: Normal Flow: Normal Print Line Inspector: Dist/med calf 3.3mm with 0s reflux. Tech Note: Incompetent SFJ and GSV. Patent varicose vein mid/med calf 2.9mm with 0s reflux. Patent varicose vein prox/post calf 3.8mm with 0s reflux. Patent varicose vein dist/med thigh 3.8mm with 2.0s reflux. CONCLUSION: 1. Mild right and rjka-oj-rwcymarn left great saphenous vein venous insufficiency with dilatation 2. Left saphenous popliteal junction reflux 3. Mild left anterior accessory saphenous vein venous insufficiency without dilatation 4. Small bilateral incompetent varicose veins Dictated by: Adelia Lezama MD on 10/02/2022 at 13:36 Approved by: Adelia Lezama MD on 10/02/2022 at 13:52 Normal [facility] ECHOCARDIO M/2D COMPLETEon 1 11-30-2021 ECHOCARDIO M/2D COMPLETE Patient: ABY MADRIGAL Exam Date: 09/30/2022 : 1965 Gender:F Ordering : DR KENDRA MURILLO . Admission #: [id number] Family : Order #: [id number] CLICK HERE TO VIEW EXAM ECHOCARDIOGRAM REPORT [...] M.D. on 09/30/2022 at 18:37 Normal [facility] BNPon 09-24-2022 Natriuretic peptide B (Bld) [Mass/Vol] 501.0 pg/mL Normal <=900.0 [facility] Comment on above: Performed By: #### C VDTB #### [facility] [address] [place] [address] Dr. Rich Cutler CBC AUTO DIFFon 09-24-2022 BASO # 0.1 103/ul Normal 0.0-0.1 [facility] Comment on above: Performed By: #### C VDTB #### [facility] [address] [address] [address] Rich Cutler Basophils/100 WBC (Bld) 0.8 % Normal 0.2-2.0 [facility] Comment on above: Performed By: #### C VDTBH #### [facility] [address] [address] [address] Rich Cutler EO # 0.3 103/ul Normal 0.0-0.7 [facility] Comment on above: Performed By: #### C VDTBH #### [facility] [address] [address] [address] Rich Cutler Eosinophils/100 WBC (Bld) 3.4 % Normal 0.9-7.0 [facility] Comment on above: Performed By: #### C VDTBH #### [facility] [address] [place] [address] Dr. Rich Cutler Erythrocyte distribution width (RBC) [Ratio] 13.3 % Normal 11.0-15.0 [facility] Comment on above: Performed By: #### C VDTBH #### [facility] [address] [place] [address] Dr. Rich Cutler Hematocrit (Bld) [Volume fraction] 40.5 % Normal 36.0-48.0 [facility] Comment on above: Performed By: #### C VDTBH #### [facility] [address] [place] [address] Dr. Rich Cutler Hemoglobin (Bld) [Mass/Vol] 13.1 g/dL Normal 12.0-16.0 [facility] Comment on above: Performed By: #### C VDTBH #### [facility] [address] [place] [address] Dr. Rich Cutler IG # 0.02 10e3/ul Normal 0.00-0.03 [facility] Comment on above: Performed By: #### C VDTBH #### [facility] [address] [place] [address] Dr. Rich Cutler IG % 0.3 % Normal 0.0-0.5 [facility] Comment on above: Performed By: #### C VDTBH #### [facility] [address] [place] [address] Dr. Rich Cutler LYMPH # 2.7 103/ul Normal 1.2-3.8 [facility] Comment on above: Performed By: #### C VDTBH #### [facility] [address] [place] [address] Dr. Rich Cutler Lymphocytes/100 WBC (Bld) 35.4 % Normal 20.5-60.0 [facility] Comment on above: Performed By: #### C VDTBH #### [facility] [address] [place] [address] Dr. Rich Cutler MANUAL DIFF REQ NO Normal [facility] Comment on above: Performed By: #### C VDTBH #### [facility] [address] [place] [address] Dr. Rich Cutler MCH (RBC) [Entitic mass] 28.2 pg Normal 26.7-34.0 [facility] Comment on above: Performed By: #### C VDTBH #### [facility] [address] [place] [address] Dr. Rich Cutler MCHC (RBC) [Mass/Vol] 32.3 g/dL Normal 29.9-35.2 [facility] Comment on above: Performed By: #### C VDTBH #### [facility] [address] [place] [address] Dr. Rich Cutler MCV (RBC) [Entitic vol] 87.3 fL Normal 81.0-99.0 [facility] Comment on above: Performed By: #### C VDTBH #### [facility] [address] [place] [address] Dr. Rich Cutler MONO # 0.5 103/ul Normal 0.3-0.8 [facility] Comment on above: Performed By: #### C VDTBH #### [facility] [address] [place] [address] Dr. Rich Cutler Monocytes/100 WBC (Bld) 6.5 % Normal 1.7-12.0 [facility] Comment on above: Performed By: #### C VDTBH #### [facility] [address] [place] [address] Dr. Rich Cutler NEUT # 4.1 103/ul Normal 1.4-6.5 [facility] Comment on above: Performed By: #### C VDTBH #### [facility] [address] [place] [address] Dr. Rich Cutler Neutrophils/100 WBC (Bld) 53.6 % Normal 43.0-75.0 [facility] Comment on above: Performed By: #### C VDTBH #### [facility] [address] [place] [address] Dr. Rich Cutler Platelet mean volume (Bld) [Entitic vol] 10.3 fL Normal 9.5-13.5 [facility] Comment on above: Performed By: #### C VDTBH #### [facility] [address] [place] [address] Dr. Rich Cutler PLT 283 103/ul Normal 150-450 [facility] Comment on above: Performed By: #### C VDTBH #### [facility] [address] [place] [address] Dr. Rich Cutler RBC 4.64 106/ul Normal 4.20-5.40 [facility] Comment on above: Performed By: #### C VDTBH #### [facility] [address] [place] [address] Dr. Rich Cutler WBC 7.6 103/ul Normal 4.0-11.0 [facility] Comment on above: Performed By: #### C ALEXANDERTBH #### [facility] [address] [place] [address] Dr. Rich Cutler INSULINon 09-24-2022 Insulin 15.1 uIU/mL Normal 2.6-24.9 [facility] Comment on above: Performed By: #### C VDTBH #### [facility] [address] [place] [address] Dr. Rich Cutler PROF 14(COMP METB)on 022 Albumin [Mass/Vol] 3.5 g/dL Normal 3.4-5.0 [facility] Comment on above: Performed By: #### C VDTBH #### [facility] [address] [place] [address] Dr. Rich Cutler Albumin/Globulin [Mass ratio] 1.0 {ratio} Normal [facility] Comment on above: Performed By: #### C VDTBH #### [facility] [address] [place] [address] Dr. Rich Cutler ALP [Catalytic activity/Vol] 91 U/L Normal 46-116 [facility] Comment on above: Performed By: #### C VDTBH #### [facility] [address] [address] [address] Rich Cutler ALT [Catalytic activity/Vol] 47 U/L Normal 14-59 [facility] Comment on above: Performed By: #### C VDTBH #### [facility] [address] [place] [address] Dr. Rich Cutler Anion gap [Moles/Vol] 11.7 mmol/L Normal [facility] Comment on above: Performed By: #### C VDTBH #### [facility] [address] [place] [address] Dr. Rich Cutler AST [Catalytic activity/Vol] 24 U/L Normal 15-37 [facility] Comment on above: Performed By: #### C VDTBH #### [facility] [address] [place] [address] Dr. Rich Cutler Bilirubin [Mass/Vol] 0.2 mg/dL Normal 0.2-1.0 [facility] Comment on above: Performed By: #### C VDTBH #### [facility] [address] [place] [address] Dr. Rich Cutler Calcium [Mass/Vol] 8.9 mg/dL Normal 8.5-10.1 [facility] Comment on above: Performed By: #### C VDTBH #### [facility] [address] [place] [address] Dr. Rich Cutler Chloride [Moles/Vol] 105 mmol/L Normal 98-107 [facility] Comment on above: Performed By: #### C VDTBH #### [facility] [address] [place] [address] Dr. Rich Cutler CO2 [Moles/Vol] 28.1 mmol/L Normal 21.0-32.0 [facility] Comment on above: Performed By: #### C VDTBH #### [facility] [address] [place] [address] Dr. Rich Cutler Creatinine [Mass/Vol] 1.13 mg/dL Critically high 0.55-1.02 [facility] Comment on above: Performed By: #### C VDTBH #### [facility] [address] [address] [address] Rich Cutler EGFR-AF MOSOTHO 60 mL/min/1.73m2 Normal >=[address] [facility] Comment on above: Performed By: #### C VDTBH #### [facility] [address] [address] [address] Rich Cutler EGFR-NON AF MOSOTHO 49 mL/min/1.73m2 Critically low >=60 [facility] Comment on above: Performed By: #### C VDTBH #### [facility] [address] [address] [address] Rich Cutler Globulin (S) [Mass/Vol] 3.5 g/dL Normal [facility] Comment on above: Performed By: #### C VDTBH #### [facility] [address] [place] [address] Dr. Rich Cutler Glucose [Mass/Vol] 119 mg/dL Critically high 74-106 [facility] Comment on above: Performed By: #### C VDTBH #### [facility] [address] [place] [address] Dr. Rich Cutler Potassium [Moles/Vol] 3.8 mmol/L Normal 3.5-5.1 [facility] Comment on above: Performed By: #### C VDTBH #### [facility] [address] [address] [address] Rich Cutler Protein [Mass/Vol] 7.0 g/dL Normal 6.4-8.2 [facility] Comment on above: Performed By: #### C VDTBH #### [facility] [address] [address] [address] Rich Cutler Sodium [Moles/Vol] 141 mmol/L Normal 136-145 [facility] Comment on above: Performed By: #### C VDTBH #### [facility] [address] [address] [address] Rich Cutler Urea nitrogen [Mass/Vol] 16.0 mg/dL Normal 7.0-18.0 [facility] Comment on above: Performed By: #### C VDTBH #### [facility] [address] [address] [address] Rich Cutler Urea nitrogen/Creatinine [Mass ratio] 14.2 mg/mg Normal [facility] Comment on above: Performed By: #### C VDTBH #### [facility] [address] [address] [address] Rich Cutler TROPONIN, HIGH SENSITIVITYon 09-24-2022 HSTROP 10.6 pg/mL Normal 4.0-51.3 [facility] Comment on above: Result Comment: CUT- OFF POINTS HAVE BEEN ESTABLISHED BASED ON THE FOURTH UNIVERSAL DEFINITIONS OF MYOCARDIAL INFARCTION. THE UPPER REFERENCE LIMIT (URL) OF TROPONIN, DEFINED THE 99TH PERCENTILE OF cTnI DISTRIBUTION IN A REFERENCE POPULATION, HAS BEEN CONFIRMED THE DECISION THRESHOLD FOR NC DIAGNOSIS. Performed By: #### C VDTB #### [facility] [address] [place] [address] Dr. Rich Cutler XR CHEST 1 Von [...] UMM HUMPHRIES Date: 2022-09-24 04:08 Normal [facility] CBC AUTO DIFFon 09-23-2022 BASO # 0.1 103/ul Normal 0.0-0.1 [facility] Comment on above: Performed By: #### C BC #### [facility] [address] [place] [address] Dr. Rich Cutler Basophils/100 WBC (Bld) 0.8 % Normal 0.2-2.0 [facility] Comment on above: Performed By: #### C BC #### [facility] [address] [place] [address] Dr. Rich Cutler EO # 0.2 103/ul Normal 0.0-0.7 [facility] Comment on above: Performed By: #### C BC #### [facility] [address] [place] [address] Dr. Rich Cutler Eosinophils/100 WBC (Bld) 3.5 % Normal 0.9-7.0 [facility] Comment on above: Performed By: #### C BC #### [facility] [address] [place] [address] Dr. Rich Cutler Erythrocyte distribution width (RBC) [Ratio] 13.4 % Normal 11.0-15.0 [facility] Comment on above: Performed By: #### C BC #### [facility] [address] [place] [address] Dr. Rich Cutler Hematocrit (Bld) [Volume fraction] 42.3 % Normal 36.0-48.0 [facility] Comment on above: Performed By: #### C BC #### [facility] [address] [place] [address] Dr. Rich Cutler Hemoglobin (Bld) [Mass/Vol] 13.4 g/dL Normal 12.0-16.0 [facility] Comment on above: Performed By: #### C BC #### [facility] [address] [place] [address] Dr. Rich Cutler IG # 0.03 10e3/ul Normal 0.00-0.03 [facility] Comment on above: Performed By: #### C BC #### [facility] [address] [place] [address] Dr. Rich Cutler IG % 0.5 % Normal 0.0-0.5 [facility] Comment on above: Performed By: #### C BC #### [facility] [address] [place] [address] Dr. Rich Cutler LYMPH # 2.9 103/ul Normal 1.2-3.8 [facility] Comment on above: Performed By: #### C BC #### [facility] [address] [place] [address] Dr. Rich Cutler Lymphocytes/100 WBC (Bld) 44.0 % Normal 20.5-60.0 [facility] Comment on above: Performed By: #### C BC #### [facility] [address] [place] [address] Dr. Rich Cutler MANUAL DIFF REQ NO Normal [facility] Comment on above: Performed By: #### C BC #### [facility] [address] [place] [address] Dr. Rich Cutler MCH (RBC) [Entitic mass] 28.4 pg Normal 26.7-34.0 [facility] Comment on above: Performed By: #### C BC #### [facility] [address] [place] [address] Dr. Rich Cutler MCHC (RBC) [Mass/Vol] 31.7 g/dL Normal 29.9-35.2 [facility] Comment on above: Performed By: #### C BC #### [facility] [address] [place] [address] Dr. Rich Cutler MCV (RBC) [Entitic vol] 89.6 fL Normal 81.0-99.0 [facility] Comment on above: Performed By: #### C BC #### [facility] [address] [place] [address] Dr. Rich Cutler MONO # 0.4 103/ul Normal 0.3-0.8 [facility] Comment on above: Performed By: #### C BC #### [facility] [address] [place] [address] Dr. Rich Cutler Monocytes/100 WBC (Bld) 6.6 % Normal 1.7-12.0 [facility] Comment on above: Performed By: #### C BC #### [facility] [address] [place] [address] Dr. Rich Cutler NEUT # 2.9 103/ul Normal 1.4-6.5 [facility] Comment on above: Performed By: #### C BC #### [facility] [address] [place] [address] Dr. Rich Cutler Neutrophils/100 WBC (Bld) 44.6 % Normal 43.0-75.0 [facility] Comment on above: Performed By: #### C BC #### [facility] [address] [address] [address] Rich Cutler Platelet mean volume (Bld) [Entitic vol] 11.0 fL Normal 9.5-13.5 [facility] Comment on above: Performed By: #### C BC #### [facility] [address] [address] [address] Rich Cutler PLT 272 103/ul Normal 150-450 [facility] Comment on above: Performed By: #### C BC #### [facility] [address] [address] [address] Rich Cutler RBC 4.72 106/ul Normal 4.20-5.40 [facility] Comment on above: Performed By: #### C BC #### [facility] [address] [address] [address] Rich Cutler WBC 6.5 103/ul Normal 4.0-11.0 [facility] Comment on above: Performed By: #### C BC #### [facility] [address] [address] [address] Rich Cutler FREE THYROXINE INDEX T7on FTI 2.16 Normal 1.30-4.50 [facility] Comment on above: Performed By: #### L IPID, TSH, T7, CMP #### [facility] [address] [address] [address] Rich Cutler T3U 30.0 % Normal 30.0-39.0 [facility] Comment on above: Performed By: #### L IPID, TSH, T7, CMP #### [facility] [address] [address] [address] Rich Cutler T4 [Mass/Vol] 7.20 ug/dL Normal 4.80-13.90 [facility] Comment on above: Performed By: #### L IPID, TSH, T7, CMP #### [facility] [address] [address] [address] Rihc Cutler GLYCOHEMOGLOBIN A1Con 2021 ADA RECOMMENDATION SEE BELOW Normal [facility] Comment on above: Result Comment: ADA RECOMMENDED LIMIT 4.0 - 6.0 ADA THERAPEUTIC TARGET < 7.0 ACTION SUGGESTED > 7.0 Performed By: #### A 1C #### [facility] [address] [place] [address] Dr. Rich Cutler Glucose [Mass/Vol] 128 mg/dL Normal [facility] Comment on above: Performed By: #### A 1C #### [facility] [address] [place] [address] Dr. Rich Cutler HbA1c (Bld) [Mass fraction] 6.1 % Normal 4.5-6.2 [facility] Comment on above: Performed By: #### A 1C #### [facility] [address] [place] [address] Dr. Rich Cutler IRONon 09-23-2022 Iron [Mass/Vol] 64.0 ug/dL Normal 50.0-170.0 [facility] Comment on above: Performed By: #### C VDTBH #### [facility] [address] [place] [address] Dr. Rich Cutler LIPID PROFILEon 09-23-2022 CHOL-HDL RATIO NORM SEE BELOW Normal [facility] Comment on above: Result Comment: 3.3 - 4.4 LOW RISK 4.4 - 7.1 AVERAGE RISK 7.1 - 11.0 MODERATE RISK >11.0 HIGH RISK Performed By: #### L IPID, TSH, T7, CMP #### [facility] [address] [place] [address] Dr. Rich Cutler Cholesterol [Mass/Vol] 237 mg/dL Critically high <=200 [facility] Comment on above: Performed By: #### L IPID, TSH, T7, CMP #### [facility] [address] [place] [address] Dr. Rich Cutler Cholesterol in HDL [Mass/Vol] 44 mg/dL Normal 40-60 [facility] Comment on above: Performed By: #### L IPID, TSH, T7, CMP #### [facility] [address] [place] [address] Dr. Rich Cutler Cholesterol in LDL [Mass/Vol] 172.2 mg/dL Normal [facility] Comment on above: Performed By: #### L IPID, TSH, T7, CMP #### [facility] [address] [address] [address] Rich Cutler Cholesterol.total/C holesterol in HDL [Mass ratio] 5.4 {ratio} Normal [facility] Comment on above: Performed By: #### L IPID, TSH, T7, CMP #### [facility] [address] [address] [address] Rich Cutler HDL NORMAL > or = 60 mg/dl - LO W CARDIOVASCULAR RISK <40 mg/dl - HIGH CARDIOVASCULAR RISK Normal [facility] Comment on above: Performed By: #### L IPID, TSH, T7, CMP #### [facility] [address] [address] [address] Rich Cutler LDL CALC NORMAL SEE BELOW Normal [facility] Comment on above: Result Comment: <100 mg/dl OPTIMAL 100 - 129 mg/dl NEAR OR ABOVE OPTIMAL 130 - 159 mg/dl BORDERLINE HIGH 160 - 189 mg/dl HIGH >190 mg/dl VERY HIGH Performed By: #### L IPID, TSH, T7, CMP #### [facility] [address] [address] [address] Rich Cutler Triglyceride [Mass/Vol] 104 mg/dL Normal <=150 [facility] Comment on above: Performed By: #### L IPID, TSH, T7, CMP #### [facility] [address] [address] [address] Rich Cutler VLDL CALC 20.8 mg/dL Normal [facility] Comment on above: Performed By: #### L IPID, TSH, T7, CMP #### [facility] [address] [address] [address] Rich Cutler PROF 14(COMP METB)on 022 Albumin [Mass/Vol] 3.5 g/dL Normal 3.4-5.0 [facility] Comment on above: Performed By: #### L IPID, TSH, T7, CMP #### [facility] [address] [place] [address] Dr. Rich Cutler Albumin/Globulin [Mass ratio] 0.9 {ratio} Normal [facility] Comment on above: Performed By: #### L IPID, TSH, T7, CMP #### [facility] [address] [place] [address] Dr. Rich Cutler ALP [Catalytic activity/Vol] 93 U/L Normal 46-116 [facility] Comment on above: Performed By: #### L IPID, TSH, T7, CMP #### [facility] [address] [place] [address] Dr. Rich Cutler ALT [Catalytic activity/Vol] 44 U/L Normal 14-59 [facility] Comment on above: Performed By: #### L IPID, TSH, T7, CMP #### [facility] [address] [place] [address] Dr. Rich Cutler Anion gap [Moles/Vol] 8.5 mmol/L Normal [facility] Comment on above: Performed By: #### L IPID, TSH, T7, CMP #### [facility] [address] [place] [address] Dr. Rich Cutler AST [Catalytic activity/Vol] 26 U/L Normal 15-37 [facility] Comment on above: Performed By: #### L IPID, TSH, T7, CMP #### [facility] [address] [place] [address] Dr. Rich Cutler Bilirubin [Mass/Vol] 0.3 mg/dL Normal 0.2-1.0 [facility] Comment on above: Performed By: #### L IPID, TSH, T7, CMP #### [facility] [address] [place] [address] Dr. Rich Cutler Calcium [Mass/Vol] 9.0 mg/dL Normal 8.5-10.1 [facility] Comment on above: Performed By: #### L IPID, TSH, T7, CMP #### [facility] [address] [place] [address] Dr. Rich Cutler Chloride [Moles/Vol] 106 mmol/L Normal 98-107 [facility] Comment on above: Performed By: #### L IPID, TSH, T7, CMP #### [facility] [address] [address] [address] Rich Cutler CO2 [Moles/Vol] 31.0 mmol/L Normal 21.0-32.0 [facility] Comment on above: Performed By: #### L IPID, TSH, T7, CMP #### [facility] [address] [place] [address] Dr. Rich Cutler Creatinine [Mass/Vol] 1.11 mg/dL Critically high 0.55-1.02 [facility] Comment on above: Performed By: #### L IPID, TSH, T7, CMP #### [facility] [address] [place] [address] Dr. Rich Cutler EGFR-AF MOSOTHO >60 Normal >=60 [facility] Comment on above: Performed By: #### L IPID, TSH, T7, CMP #### [facility] [address] [place] [address] Dr. Rich Cutler EGFR-NON AF MOSOTHO 50 mL/min/1.73m2 Critically low >=60 [facility] Comment on above: Performed By: #### L IPID, TSH, T7, CMP #### [facility] [address] [place] [address] Dr. Rich Cutler Globulin (S) [Mass/Vol] 3.7 g/dL Normal [facility] Comment on above: Performed By: #### L IPID, TSH, T7, CMP #### [facility] [address] [place] [address] Dr. Rich Cutler Glucose [Mass/Vol] 121 mg/dL Critically high 74-106 [facility] Comment on above: Performed By: #### L IPID, TSH, T7, CMP #### [facility] [address] [place] [address] Dr. Rich Cutler Potassium [Moles/Vol] 4.5 mmol/L Normal 3.5-5.1 [facility] Comment on above: Performed By: #### L IPID, TSH, T7, CMP #### [facility] [address] [address] [address] Rich Cutler Protein [Mass/Vol] 7.2 g/dL Normal 6.4-8.2 [facility] Comment on above: Performed By: #### L IPID, TSH, T7, CMP #### [facility] [address] [address] [address] Rich Cutler Sodium [Moles/Vol] 141 mmol/L Normal 136-145 [facility] Comment on above: Performed By: #### L IPID, TSH, T7, CMP #### [facility] [address] [address] [address] Rich Cutler Urea nitrogen [Mass/Vol] 16.0 mg/dL Normal 7.0-18.0 [facility] Comment on above: Performed By: #### L IPID, TSH, T7, CMP #### [facility] [address] [address] [address] Rich Cutler Urea nitrogen/Creatinine [Mass ratio] 14.4 mg/mg Normal [facility] Comment on above: Performed By: #### L IPID, TSH, T7, CMP #### [facility] [address] [address] [address] Rich Cutler TSHon 09-23-2022 TSH 3.915 uIU/mL Critically high 0.358-3.740 [facility] Comment on above: Performed By: #### L IPID, TSH, T7, CMP #### [facility] [address] [place] [address] Dr. Rich Cutler Physician Referralon 022 Physician Referral [phone] [id number]:[id number] Normal [facility] Lipid Panelon 10-07-2021 Cholesterol [Mass/Vol] 205 mg/dL High 140-200 [facility] Comment on above: Result Comment: Chol less than 200 mg/dl low risk Chol 201-239 mg/dl borderline risk Chol 240 mg/dl and greater high risk Performed By: #### L IPID, [id number], TSH3 wRFLX #### [facility] [address] Cholesterol in HDL [Mass/Vol] 25 mg/dL Low 35-85 [facility] Comment on above: Result Comment: HDL CHOL ATP-III CLASSIFICATION Cardiovascular Risk HDL > or equal to 60 mg/dL LOW HDL < 40 mg/dL HIGH Performed By: #### L IPID, [id number], TSH3 wRFLX #### [facility] [address] Cholesterol.total/C holesterol in HDL [Mass ratio] 8.2 {ratio} Normal <5.0 [facility] Comment on above: Performed By: #### L IPID, [id number], TSH3 wRFLX #### [address] LDL Cholesterol,Calcula coby 160 mg/dL High 0-100 [facility] Comment on above: Result Comment: LDL ATP III CLASSIFICATION LDL less than 100 mg/dL Optimal LDL 100-129 mg/dL Near or above optimal LDL 130-159 mg/dL Borderline high LDL 160-189 mg/dL High LDL greater than 189 mg/dL Very high Performed By: #### L IPID, [id number], TSH3 wRFLX #### [address] Triglyceride w/Reflex 100 mg/dL Normal 35-149 [facility] Comment on above: Result Comment: TRIG ATP III CLASSIFICATION TRIG less than 150 mg/dL Normal TRIG 150-199 mg/dL Borderline high TRIG 200-500 mg/dL High TRIG greater than 500 mg/dL Very high Standard traceable to the Center for Disease Conrtrol and Prevention (CDC) test method. Performed By: #### L IPID, [id number], TSH3 wRFLX #### [facility] [address] [place] [address] VLDL CHOLESTEROL 20 mg/dL Normal [facility] Comment on above: Performed By: #### L IPID, [id number], TSH3 wRFLX #### [address] Thyroid Stim Hormone w/Rflxo n 10-07-2021 Thyroid Stim Hormone w/Rflx 3.27 u[iU]/mL Normal 0.45-5.33 [facility] Comment on above: Performed By: #### L IPID, [id number], TSH3 wRFLX #### [facility] [address] [place] [address] [facility] Vitamin D 25 Hydroxy Totalon 10-07-2021 Vitamin D 25 Hydroxy Total 26.5 ng/mL Low 30-100 [facility] Comment on above: Result Comment: JACKELINE MIN D STATUS 25(OH)VITAMIN D RANGE (ng/mL) Deficient <20 Insufficient 20 to <30 Sufficient 30 to 100 Reference: Lanny MF,Gino NC, Dyan VALENZUELA, et al. Evaluation,treatment, and prevention of vitamin D deficiency; an Endocrine Society clinical practice guideline. JCEM. 2010; 96(7):1911-30. PERFORMED BY: [place] [address] PATHOLOGIST SANDBLASTER SUPERVISOR SILVESTRE SCHULER M.D. Performed By: #### L IPID, [id number], TSH3 wRFLX #### [facility] [address] [place] [address] [facility] Vital Signs Date Time Vital Sign Value Performing Clinician Deidre gagnon 10-06-2022 15:36-0500 Blood Pressure Location Umm MARTÍNEZ [facility] [place] 10-06-2022 15:36-0500 Diastolic blood pressure 86 mm[Hg] Umm MART[facility]NE[facility] [place] 10-06-2022 15:36-0500 Heart rate 72 /min Umm MARTÍNEZ [facility] [place] 10-06-2022 15:36-0500 Respiratory rate 16 /min Umm MARTÍNEZ [facility] [place] 10-06-2022 15:36-0500 Systolic blood pressure 126 mm[Hg] Umm MARTÍNE[facility] [place] Encounters Encounter Date Encounter Type Care Provider Facility Start: 07-11-2024 Evaluation and manag ement of inpatient [facility] Start: 07-11-2024 Evaluation and manag ement of inpatient [facility] Start: 07-11-2024 Emergency department patient visit [facility] Start: 07-11-2024 End: 07-12-2024 Evaluation and management of inpatient [facility] Start: 07-10-2024 End: 07-10-2024 ambulatory [facility] Start: 06-30-2024 Evaluation and manag ement of inpatient [facility] Start: 06-30-2024 Evaluation and manag ement of inpatient [facility] Start: 06-29-2024 End: 07-01-2024 Evaluation and management of inpatient KENDRA MURILLO [facility] Start: 06-21-2024 End: 06-21-2024 [facility]: 05-26-2024 End: 05-26-2024 ambulatory [facility] Start: 11-26-2022 Encounter for preprocedural laboratory examination DR UMM MARTÍNEZ . [facility] Start: 11-25-2022 End: 11-26-2022 ambulatory Umm MARTÍNEZ Facility:CD:[id number] Start: 11-20-2022 End: 11-21-[address] UMM MARTÍNEZ . Facility: Start: 11-20-2022 End: 11-21-2022 Encounter for preprocedural laboratory examination DR UMM MARTÍNEZ . Facility: Start: 10-06-2022 End: 10-07-2022 ambulatory Umm MARTÍNEZ Facility:[facility] Start: 10-06-2022 End: 10-06-2022 Patient encounter procedure [facility] Start: 10-02-2022 End: 10-03-[address] KENDRA MURILLO . Facility: Start: 09-30-2022 End: 10-01-[address] KENDRA MURILLO . Facility:[facility] Start: 09-28-2022 Encounter for genera l adult medical examination without abnormal findings DR KENDRA MURILLO . [facility] Start: 09-24-2022 End: 09-24-[address] SYBIL [...] Immunizations Immunization Date Immunization Notes Care Provider [facility] 04-14-2021 SARS-CoV-2 (COVID-19 ) mRNA BNT-162b2 vax Umm NILL [facility] [place] 03-11-2021 SARS-CoV-2 (COVID-19 ) mRNA BNT-162b2 vax Umm NILL [facility] [place] Payers Date Payer Category Payer Medicaid [id number] 1965 Unknown [id number] 2.16.8 [id number] 1965 Unknown [id number] 2.16.8 [id number] 1965 Unknown [id number] 2.16.84 [id number] 1965 Unknown [id number] 2.16.84 [id number] 1964 Unknown [id number] 2.16.84 [id number] 1964 Unknown [id number] 2.16.84 [id number] 1964 Unknown [id number] 2.16.84 [id number] 1964 Unknown [id number] 2.16.84 [id number] 1964 Unknown [id number] 2.16.84 [id number] 1960 Self-pay [id number] 1960 Unknown [id number] Social History Date Type Detail Facility Start: 10-06-2022 Tobacco smoking status Ex-smoker (fi nding) [facility] [place] Tobacco smoking status Never [facility] [place] Sex Assigned At Female [facility] Functional Status Date Assessment Result Facility 10-06-2022 Functional Status N/A [facility] Clinical Notes 10-11-2022 to 07-12-2024 Note Date & Type Note Facility 07-12-2024 Note Hospital Medicine Discharge Summary Final Discharge Diagnosis: NSTEMI Admission Diagnosis: Hypokalemia [E87.6] NSTEMI (non-ST elevated myocardial infarction) (CMS/HCC) [I21.4] Hypertensive urgency [I16.0] Adenoma of left adrenal gland [D35.02] Resistant hypertension [I1A.0] Atherosclerosis of [place] coronary artery of [place] heart without angina pectoris [I25.10] Coronary artery disease involving [place] coronary artery of [place] heart with unstable angina pectoris (CMS/HCC) [I25.110] Type 2 diabetes mellitus without complication, without long-term current use of insulin (CMS/HCC) [E11.9] Hospital course: 59yoF with CAD s/p LAD SARKIS 11 days ago who was admitted to [facility] on 07/11 for chest pain. patient initially presented to [facility] for uncomfortable feeling in her chest and was found to have elevated troponins and new ischemic changes on EKG. Infusion and cardiology was consulted transferred to [facility] for further evaluation. Initially the patient had blood pressures up to 192/65 for which home medications were restarted. Troponins at [facility] were negative and there were no EKG changes concerning for ischemia. Echo was performed which showed EF 70 to 75%. she was cleared from cardiology for discharge and had resolved. Surgical, Invasive or Diagnostic Procedures Done During Admission: None Consultations During Admission: Cardiology Dear Dr. Lidia MD, Aby is advised to follow up with you within 1-2 weeks. Items to follow up in ambulatory setting: Further diagnostics for adrenal mass 3.5 cm found on previous hospitalization Patient also stated clonidine was recently changed to 0.2 mg BID but no documentation or Rx fill could be found to support this. It is understood if this was verbally relayed to patient to take double of her current clonidine, so she was instructed to refer to PCP for instruction. Follow-up with: Cardiology Scheduled appointments: Future Appointments Date Time Provider Department Center 07/18/2024 8:20 AM Feng Cloud MD [facility] ENDOCR [facility] 07/20/2024 1:00 PM Richa Grace MD [facility] ONC [facility] 09/05/2024 1:00 PM Bijan Mitchell MD [facility] Your medication list START taking these medications Instructions Last Dose Given Next Dose Due isosorbide mononitrate ER 60 mg 24 hr tablet Commonly known as: Imdur Take 1 tablet (60 mg) by mouth in the morning for 98 doses. Do not crush or chew. sennosides-docusate sodium 8.6-50 mg tablet Commonly known as: Mikala-Colace Take 1 tablet by mouth if needed each day for constipation. spironolactone 25 mg tablet Commonly known as: Aldactone Start taking on: July 13, 2024 Take 1 tablet (25 mg) by mouth in the morning for 98 doses. Do not start before July 13, 2024. CONTINUE taking these medications Instructions Last Dose Given Next Dose Due aspirin 81 mg EC tablet carvedilol 25 mg tablet Commonly known as: Coreg Take 1 tablet (25 mg) by mouth with breakfast and with evening meal. cloNIDine 0.1 mg tablet Commonly known as: Catapres Take 1 tablet (0.1 mg) by mouth two times daily. clopidogrel 75 mg tablet Commonly known as: Plavix Take 1 tablet (75 mg) by mouth in the morning. Lasix 20 mg tablet Generic drug: furosemide LORazepam 0.5 mg tablet Commonly known as: Ativan losartan 100 mg tablet Commonly known as: Cozaar Take 1 tablet (100 mg) by mouth in the morning. metFORMIN 500 mg tablet Commonly known as: Glucophage Protonix 40 mg EC tablet Generic drug: pantoprazole QUEtiapine 25 mg tablet Commonly known as: SEROquel rosuvastatin 40 mg tablet Commonly known as: Crestor Take 1 tablet (40 mg) by mouth in the morning. Where to Get Your Medications These medications were sent to [facility]/pharmacy #[id number] [facility] [address] [facility] [address] [facility] [address] isosorbide mononitrate ER 60 mg 24 hr tablet sennosides-docusate sodium 8.6-50 mg tablet spironolactone 25 mg tablet Aby is allergic to lisinopril, norvasc [amlodipine], and xanax [alprazolam]. Disposition: Home or Self Care () Discharge Condition: Stable Code Status: Prior Diagnostic Results Hematology: Results from last 7 days Lab Units 07/12/24 0439 07/11/24 1042 WBC AUTO 10*3/uL 6.27 7.18 HEMOGLOBIN g/dL 11.2* 11.6* HEMATOCRIT % 34.2* 36.2 MCV fL 83.6 85.0 PLATELETS AUTO 10*3/uL 223 245 INR -- 1.00 Chemistry: Results from last 7 days Lab Units 07/12/24 0439 07/11/24 1042 SODIUM mmol/L 142 142 POTASSIUM mmol/L 3.4* 3.4* CHLORIDE mmol/L 108* 108* CO2 mmol/L 27 28 BUN mg/dL 11 14 CREATININE mg/dL 0.89 1.09 GLUCOSE mg/dL 109* 113* MAGNESIUM mg/dL 1.7* -- CALCIUM mg/dL 8.8 8.8 No lab exists for component: AFIO2 , APHT , APCOT , APOT , ATCO2 , CK , ALB , IBILI Test Results Pending At Discharge: Pending Labs Order Current Status Aldosterone In process Renin activity In process (more content not included)... [facility] 07-11-2024 Note 07/11/24 1817 Financial Resource Strain How hard is it for you to pay for the very basics like food, housing, medical care, and heating? Not hard Housing Stability In the last 12 months, was there a time when you were not able to pay the mortgage or rent on time? N In the last 12 months, how many places have you lived? 1 (Lives at home by herself) In the last 12 months, was there a time when you did not have a steady place to sleep or slept in a mcc (including now)? N Transportation Needs In the past 12 months, has lack of transportation kept you from medical appointments or from getting medications? no In the past 12 months, has lack of transportation kept you from meetings, work, or from getting things needed for daily living? No Food Insecurity Within the past 12 months, you worried that your food would run out before you got the money to buy more. Never true Within the past 12 months, the food you bought just didn't last and you didn't have money to get more. Never true Stress Do you feel stress - tense, restless, nervous, or anxious, or unable to sleep at night because your mind is troubled all the time - these days? Only a littl Social Connections In a typical week, how many times do you talk on the phone with family, friends, or neighbors? More than 3 How often do you get together with friends or relatives? More than 3 How often do you attend hinduism or restorationism services? Never Do you belong to any clubs or organizations such as hinduism groups, unions, fraternal or athletic groups, or school groups? No How often do you attend meetings of the clubs or organizations you belong to? Never Are you , , , , never , or living with a partner? Intimate Partner Violence Within the last year, have you been afraid of your partner or ex-partner? No Within the last year, have you been humiliated or emotionally abused in other ways by your partner or ex-partner? No Within the last year, have you been kicked, hit, slapped, or otherwise physically hurt by your partner or ex-partner? No Within the last year, have you been raped or forced to have any kind of sexual activity by your partner or ex-partner? No Alcohol Use Q1: How often do you have a drink containing alcohol? Never Q2: How many drinks containing alcohol do you have on a typical day when you are drinking? None Q3: How often do you have six or more drinks on one occasion? Never Utilities In the past 12 months has the [employer], gas, oil, or water company threatened to shut off services in your home? 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[employer] Referral Reason Psychosocial assessment Patient Information Primary Caregiver Self Accompanied by/Relationship Daughter (Rosita); [id number] (Yesy) Activities of Daily Living Assistive Device Not applicable Living Arrangement (Current/Prior to Hospitalization) Private residence (Lives at home by herself) Ambulation Independent Dressing Independent Feeding Independent Behavior Oriented (A&Ox4) Communication Can write;Talks;Understands speaking;Understands [place];Reads Income Information Income Source Unemployed (receives survivor benefits) Discharge Planning Support Systems Children;Family members (daughter, [id number], son) Type of Residence Private residence Will patient need Precert for Post Acute needs? No Patient's goal for discharge Home Does the patient need discharge transport arranged? No Completed social work assessment and SDoH screening. Patient was A&Ox4 at this time. Patient's daughter, Rosita, and patient's izznmelt-cv-exn, Yesy, were currently present at bedside. Patient reported that she lives at home by herself and she identified her support system as her daughter, Rosita, her yogtfong-vn-jwo, Yesy, and her son, Elie. Patient endorsed that she is moderately socially active. Patient reported that she is independent with ADLs without the use of any DME. Patient reported that she is unemployed and receives survivor benefits from her late . Patient denied the need for assistance with obtaining basic needs. Patient also denied the need for assistance with transportation for medical appointments and she denied the need for assistance with transportation home from the hospital upon discharge. Patient denied experiencing any significant amount of stress in her everyday life, denied experiencing any form of IPV within the past year, and denied any alcohol consumption or recreational drug use. [facility] 07-11-2024 Note Hospital Medicine History and Physical 07/11/2024 12:19 PM THE HOSPITALIST TEAM PREFERS TO USE [employer] CHAT FOR COMMUNICATION 7AM-7PM. IF I DO NOT RESPOND WITHIN 15 MINUTES, PLEASE PAGE ME/CALL THROUGH THE MEDICAL SERVICE TECHNICIAN. FROM 7PM-7AM, PLEASE PAGE [phone](COVR) Chief Complaint Chief Complaint Patient presents with Chest Pain Patient had heart cath with 1 stent placed approx 10 days ago at this hospital, developed CP last evening History of Present Illness Aby Madrigal is an 59 y.o. female who came from home with past medical history of hypertension, history of TIA, type 2 diabetes, hyperlipidemia and CAD, s/p stent placement 11 days ago at [facility] presented to ER as a transfer from [facility] for NSTEMI. Patient states that last night she started to have uncomfortable feeling in her chest so she presented to ER and then in the ER she started to have chest pain. Upon workup in the ER, patient's troponin was elevated and she had new ischemic changes on her EKG so she was started on heparin drip. Cardiology wanted patient to be transferred back here so they can do cardiac catheterization. Patient remains NPO. She states that her pain improved a lot. When she had chest pain she also had some dyspnea but no diaphoresis. No fevers or chills. She has some nausea because she did not eat anything but no vomiting. No abdominal pain. Patient's previous cardiac catheterization that was done 11 days ago during previous hospitalization showed showed severe stenosis of LAD and she underwent angioplasty with drug-eluting stent placement, she also has moderate distal LAD disease, mild to moderate proximal RCA disease with normal left ventricular systolic function . Patient was discharged home on aspirin and Plavix and she states that she is compliant with taking her medications. Patient also has some lightheadedness and dizziness but no headaches. No other complaints or concerns. Review of System and Physical Exam Temp: [36.6 ???C (97.9 ???F)] 36.6 ???C (97.9 ???F) Heart Rate: [55-66] 60 Resp: [12-18] 18 BP: (135-173)/(61-80) 173/80 Physical Exam Constitutional: General: She is not in acute distress. Appearance: Normal appearance. She is obese. HENT: Head: Normocephalic and atraumatic. Eyes: Conjunctiva/sclera: Conjunctivae normal. Cardiovascular: Rate and Rhythm: Normal rate and regular rhythm. Heart sounds: No murmur heard. No friction rub. No gallop. Pulmonary: Effort: Pulmonary effort is normal. No respiratory distress. Breath sounds: Normal breath sounds. No wheezing, rhonchi or rales. Abdominal: General: Abdomen is flat. There is no distension. Palpations: Abdomen is soft. Tenderness: There is no abdominal tenderness. Musculoskeletal: General: No swelling or deformity. Right lower leg: No edema. Left lower leg: No edema. Skin: General: Skin is warm and dry. Findings: No rash. Neurological: General: No focal deficit present. Mental Status: She is alert and oriented to person, place, and time. Psychiatric: Mood and Affect: Mood normal. Behavior: Behavior normal. Thought Content: Thought content normal. Judgment: Judgment normal. Review of Systems as mentioned in HPI Problem List Patient Active Problem List Diagnosis Date Noted Hypokalemia 07/11/2024 Coronary artery disease involving [place] coronary artery of [place] heart with unstable angina pectoris ([facility]) 07/11/2024 Anxiety 06/30/2024 Type 2 diabetes mellitus without complication, without long-term current use of insulin ([facility]) 06/30/2024 Chest pain 06/30/2024 Elevated troponin 06/30/2024 Hypertensive urgency 06/30/2024 Hypomagnesemia 06/30/2024 QURESHI (dyspnea on exertion) 05/26/2024 Atherosclerosis of [place] coronary artery of [place] heart without angina pectoris 05/26/2024 Hyperlipidemia 05/26/2024 Murmur, heart 05/26/2024 Sepsis ([facility]) 07/14/2019 BV (bacterial vaginosis) 10/18/2017 GERD (gastroesophageal reflux disease) 10/18/2017 Essential hypertension 10/18/2017 TIA (transient ischemic attack) 10/18/2017 NSTEMI (non-ST elevated myocardial infarction) ([facility]) 06/29/2024 Assessment and Plan NSTEMI CAD, s/p stent placement 10 days ago Hypokalemia Hypertension Type 2 diabetes Hyperlipidemia GERD History of TIA Plan: Patient will be admitted to stepdown telemetry bed. For NSTEMI, we will continue her on heparin drip. Cardiology was consulted from ER and they want patient to remain n.p.o. so they can do cardiac catheterization today. We will hold metformin. Morphine IV as needed for chest pain. Patient's home medications were resumed, including aspirin and Plavix so patient can start taking them when she will be able to have oral intake. Potassium was replaced and will monitor. Will check blood sugar every 6 hours and cover with ISS Normal saline at 50 mL/hour for next 24 hours. Protonix 40 mg p.o. daily for GI prophylaxis (more content not included)... [facility] 07-10-2024 Note [facility] Note Reason for cardiology visit: Hospital follow-up 07/10/2024 Patient was admitted recently to the hospital when she came in with chest pressure associated with hypertension with mildly elevated troponin to 0.11. Also at the time she had left ureter obstruction with a stone with mild left hydronephrosis. She underwent cardiac catheterization on 06/30/2024 which showed severe stenosis of LAD and she underwent angioplasty with drug-eluting stent placement, she also has moderate distal LAD disease, mild to moderate proximal RCA disease with normal left ventricular systolic function. She states that she has been doing well. She denies any chest discomfort at rest or with exertion. She denies exertional dyspnea, orthopnea or paroxysmal nocturnal dyspnea. She denies dizziness or palpitations or legs edema or discomfort on exertion. She denies any problem at the site of cardiac catheterization. She brought her blood pressure log with her and her blood pressure has been between 140-150. She states that she still has a lot of anxiety. She states that alprazolam as well as having somebody with her helps to alleviate anxiety. 06/05/2024 Chief Complaint: Dyspnea on exertion HPI: Aby Madrigal is a 59 y.o. female without prior cardiac history however [...] Lisinopril, Norvasc [amlodipine], and Xanax [alprazolam] Medications Current Outpatient Medications: aspirin 81 mg EC tablet, Take 81 mg by mouth in the morning., Disp: , Rfl: carvedilol (Coreg) 25 mg tablet, Take 1 tablet (25 mg) by mouth with breakfast and with evening meal., Disp: 60 tablet, Rfl: 0 cloNIDine (Catapres) 0.1 mg tablet, Take 1 tablet (0.1 mg) by mouth two times daily., Disp: 60 tablet, Rfl: 0 clopidogrel (Plavix) 75 mg tablet, Take 1 tablet (75 mg) by mouth in the morning., Disp: 90 tablet, Rfl: 3 Lasix 20 mg tablet, Take 20 mg by mouth in the morning., Disp: , Rfl: LORazepam (Ativan) 0.5 mg tablet, 1 to 2 tablets Orally QID PRN for 30 days, Disp: , Rfl: losartan (Cozaar) 50 mg tablet, Take 1 tablet (more content not included)... [facility] 07-01-2024 Note Hospital Medicine Discharge Summary Final [...] hypertension, IBS presents a direct mission from [facility] with a chief complaint of chest pain. [...] seen on her EKG. She went to [facility] for the symptoms. Labs were completed showing [...] on a heparin drip and transferred to [facility] for likely cardiac cath. # NSTEMI s/p [...] - Continue metformin. Dear Dr. Lidia MD, [facility] is advised to follow up with you within 1-2 weeks. Items to follow up in ambulatory setting: None Follow-up with: Cardiology and Nephrology Scheduled appointments: Future Appointments Date Time Provider Department Center 07/10/2024 2:20 PM Bijan Mitchell MD [facility] Your medication list START taking these [...] Your Medications These medications were sent to [facility]/pharmacy #[id number] [facility] [place] - [address] [facility] [address] [place] [address] carvedilol 25 mg tablet cloNIDine 0.1 mg tablet clopidogrel 75 mg tablet rosuvastatin 40 mg tablet Aby is allergic to lisinopril, norvasc [amlodipine], and xanax [alprazolam]. Disposition: Home or Self Care () Discharge Condition: Stable Code Status: Full Code Diagnostic Results Hematology: Results from last 7 days Lab Units 07/01/24 0606/30/2471706/29/24 2344 WBC AUTO 10*3/uL 7.04 7.41 8.58 HEMOGLOBIN g/dL 12.4 11.5* 11.8* HEMATOCRIT % 38.6 36.7 35.9* MCV fL 83.7 85.7 82.7 PLATELETS AUTO 10*3/uL 238 243 233 INR -- -- 0.99 Chemistry: Results from last 7 days Lab Units 07/01/24 0606/30/2471706/29/24 2344 SODIUM mmol/L 141 143 142 POTASSIUM mmol/L 3.5 3.7 3.7 CHLORIDE mmol/L 106 110* 112* CO2 mmol/L 25 26 22 BUN mg/dL 13 10 11 CREATININE mg/dL 0.91 0.81 0.92 GLUCOSE mg/dL 101* 110* 108* MAGNESIUM mg/dL 2.0 -- 1.7* CALCIUM mg/dL 8.2* 8.3* 8.5* PHOSPHORUS mg/dL -- -- 2.9 Results from last 7 days Lab Units (more content not included)... [facility] 07-01-2024 Note [facility] CARDIOLOGY INPAT IENT PROGRESS NOTE Reason for follow up: NSTEMI Subjective Aby Madrigal, a 59 y.o. female patient, is transferred from [facility] for continuity of care. Patient reports that 3 days ago, she woke up in the mid of the night with indigestion, and a feeling fullness, but no pressure like chest pain. She presented to [facility], where she was found to be hypertensive. [...] 161/64 -- -- 75 13 -- -- 06/30/241999 134/52 36 ???C (96.8 ???F) Temporal 76 [...] 0.56 06/29/2024 E (more content not included)... 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 Additional Equipment Requests [facility] 06-30-2024 Note 06/30/24 1446 Referral Data Referral Source [employer] Referral Reason Follow up;Information Patient Information Primary Caregiver Self Accompanied by/Relationship daughters at bedside Activities of Daily Living Assistive Device Not applicable Living Arrangement (Current/Prior to Hospitalization) Private residence (three to four stairs) Ambulation Independent Dressing Independent Feeding Independent Behavior Oriented Communication Talks;Understands speaking;Understands [place] Discharge Planning Support Systems Children (daughters will [...] questions for social work at this time. [facility] 06-30-2024 Note 06/30/24 1431 Admission Assessment [...] Not Interested Does the patient have a ed case manager assigned to them through their insurance? [...] No Do you understand the benefits of MyChart? Yes Were you able to send link and activate MyChart? No [facility] 06-30-2024 Note Case was discussed w ith the SALVADOR on 06/29/2024. I agree with the history, physical, assessment, and plan of care. I discussed the findings and therapeutic plan. I agree with the documentation, except for any updates below. Maurice Nogueira MD [facility] 06-30-2024 Note Hospital Medicine History and Physical 06/30/2024 1:15 AM THE HOSPITALIST TEAM PREFERS TO USE [employer] CHAT FOR COMMUNICATION 7AM-7PM. IF I DO NOT RESPOND WITHIN 15 MINUTES, PLEASE PAGE ME/CALL THROUGH THE MEDICAL SERVICE TECHNICIAN. FROM 7PM-7AM, PLEASE PAGE [phone](COVR) Chief Complaint Direct admission from [facility] with CP History of Present Illness Aby Madrigal is an 59 y.o. female who came from home with past medical history of anxiety, DM2, hypertension, IBS presents a direct mission from [facility] with a chief complaint of chest pain. [...] seen on her EKG. She went to [facility] for the symptoms. Labs were completed showing [...] on a heparin drip and transferred to [facility] for likely cardiac cath. Review of System [...] complication, without long-term current use of insulin ([facility]) 06/30/2024 Chest pain 06/30/2024 Elevated troponin 06/30/2024 Hypertensive urgency 06/30/2024 QURESHI (dyspnea on exertion) 05/26/2024 Atherosclerosis of [place] coronary artery of [place] heart without angina pectoris 05/26/2024 Hyperlipidemia 05/26/2024 Murmur, heart 05/26/2024 Sepsis ([facility]) 07/14/2019 BV (bacterial vaginosis) 10/18/2017 GERD (gastroesophageal reflux disease) 10/18/2017 Essential hypertension 10/18/2017 TIA (transient ischemic attack) 10/18/2017 Assessment and Plan Aby Madrigal is an 59 y.o. female who came from home with past medical history of anxiety, DM2, hypertension, IBS presents a direct mission from [facility] with a chief complaint of chest pain. #Chest pain #Elevated troponin Troponin 0.1, will continue to trend -Patient continues to have mild chest discomfort upon arrival -Continue heparin drip -CXR negative for acute process at OSH -EKG showing normal sinus rhythm -N.p.o. for possible right and left cardiac cath in a.m. -Patient with new diastolic dysfunction on echoc (more content not included)... [facility] 06-21-2024 Note [place] [facility] - [facility] Subjective Aby Madrigal is a 59 y.o. year old female patient being seen for follow up [facility] per Dr. Murillo. She has not [...] attack) QURESHI (dyspnea on exertion) Atherosclerosis of [place] coronary artery of [place] heart without angina pectoris Hyperlipidemia Murmur, heart [...] Judgment: Judgment no (more content not included)... [facility] 05-26-2024 Note [facility] Note Reason for cardiology [...] PSYCH: appropriate mood, (more content not included)... [facility] 11-25-2022 Note OPERATIVE NOTE OPERATION DATE: [...] 10 years. CC: Kendra Murillo M.D. [facility] 10-11-2022 Note Chief Complaint consultation for colonoscopy [...] 1 tab(s), Oral, (more content not included)... [facility] Comment on above: Result Comment: Elec tronically Signed By: DIPESH BUCKNER, Umm Hogan\Date and Time Signed: 10/11/22 11:01 EST Evaluation + Plan note No data available for this section General [facility] Discharge instructions No data available for this section General Surgery [place] Progress note No data available for this section General Surgery [place] Summary Purpose Family History No Family History Records FoundNo Family History Records FoundNo Family History Records FoundNo Family History Records Found Advance Directives No Advanced Directives Records FoundNo Advanced Directives Records FoundNo Advanced Directives Records FoundNo Advanced Directives Records Found Additional Source Comments INFORMATION SOURCE (unrecogn ized section and content) DATE CREATED AUTHOR 12/17/2021 [facility] DATE CREATED AUTHOR AUTHOR'S ORGANIZ ATION 12/16/2022 [facility] DATE CREATED AUTHOR AUTHOR'S ORGANIZ ATION 03/26/2023 [facility] DATE CREATED AUTHOR AUTHOR'S ORGANIZ ATION 07/15/2024 [facility] Patient Care team informatio n (unrecognized section and content) Personnel Name: Kendra Murillo MD Address: Address: [address] [place] [address] Personnel Name: Kendra Murillo MD Address: Address: [address] [place] [address] FOR RECORDS PERTAINING TO PATIENTS WHO ARE [...] BE BASED ON THE PRIMARY CLINICAL RECORDS. [employer] [facility]. provides no warranty or guarantee of the accuracy or completeness of information in this document.
--- NOTE | 2024-07-18 19:22 | ED_ITS ---
HPI - Arrhythmia/Palpitations General Chief Complaint: Arrhythmia/Palpitations Stated Complaint: Palpitations Time Seen by Provider: 07/18/24 19:15 Source: patient Mode of arrival: Wheelchair Limitations: no limitations History of Present Illness HPI narrative: recent history of cardiac stent placement . States there has been a problem controlling her BP. States seen by cardiology and her medication adjusted. Coz aar increased to 100 qd and isosorbide and aldactone added. states she started these new medications this AM. Was seen by Endocrine for adrenal adenoma and her BP was low in the office. Was seen in ER [facility] and after hydration felt better and discharged home. Advised to d/c catapres and lasix by endocrine. Now presents here complaining of a flutter sensation in her chest and feeling like crap . No chest pain, or dyspnea. No specific description of her symptoms Related Data Home Medications ?Medication ?Instructions ?Recorded ?Confirmed metformin 500 mg tablet 500 mg PO BID 04/21/24 07/18/24 aspirin 81 mg capsule 81 mg PO DAILY 04/22/24 07/18/24 furosemide 20 mg tablet (Lasix) 20 mg PO DAILY 04/22/24 07/18/24 clonidine HCl 0.1 mg tablet 0.2 mg PO Q12H 06/13/24 07/18/24 losartan 50 mg tablet 50 mg PO DAILY 06/29/24 07/18/24 quetiapine 25 mg tablet 50 mg PO BEDTIME 06/29/24 07/18/24 carvedilol 25 mg tablet 25 mg PO BID 07/01/24 07/18/24 clopidogrel 75 mg tablet 75 mg PO DAILY 07/01/24 07/18/24 lorazepam 0.5 mg tablet (Ativan) 0.5 mg PO Q6H PRN anxiety 07/01/24 07/18/24 rosuvastatin 40 mg sprinkle capsule 40 mg PO DAILY 07/01/24 07/18/24 spironolactone 25 mg tablet 25 mg PO .once in morning 07/18/24 07/18/24 Previous Rx's ?Medication ?Instructions ?Recorded pantoprazole 40 mg tablet,delayed 40 mg PO DAILY #30 tabs 06/29/24 release (Protonix) Allergies Allergy/AdvReac Type Severity Reaction Status Date / Time amlodipine Allergy Mild Headache Verified 07/11/24 00:21 alprazolam [From Xanax] AdvReac Severe Watery Eye Verified 07/11/24 00:21 Review of Systems ROS Status of ROS 10 or more systems reviewed and unremark able except as noted in history and below [facility] Medical History (Updated 07/18/24 @ 22:20 by Roberto Romeo MD) Hypokalemia ?E87.6 - Hypokalemia (ICD-10) Hypertension, uncontrolled ?I10 - Essential (primary) hypertension (ICD-10) Chest pain ?R07.9 - Chest pain, unspecified (ICD-10) NSTEMI (non-ST elevated myocardial infarction) ?I21.4 - Non-ST elevation (NSTEMI) myocardial infarction (ICD-10) Shortness of breath ?R06.02 - Shortness of breath (ICD-10) Headache ?R51.9 - Headache, unspecified (ICD-10) Elevated d-dimer ?R79.89 - Other specified abnormal findings of blood chemistry (ICD-10) Hypertensive emergency ?I16.1 - Hypertensive emergency (ICD-10) Uncontrolled hypertension ?I10 - Essential (primary) hypertension (ICD-10) Irritable bowel syndrome ?K58.9 - Irritable bowel syndrome without diarrhea (ICD-10) H/O nephrolithotomy with removal of calculi ?Z98.890 - Other specified postprocedural states (ICD-10) ?Z87.442 - Personal history of urinary calculi (ICD-10) Kidney stone ?N20.0 - Calculus of kidney (ICD-10) Sepsis ?A41.9 - Sepsis, unspecified organism (ICD-10) H/O angiography ?Z92.89 - Personal history of other medical treatment (ICD-10) Lung nodule ?R91.1 - Solitary pulmonary nodule (ICD-10) Anxiety ?F41.9 - Anxiety disorder, unspecified (ICD-10) HTN (hypertension) ?I10 - Essential (primary) hypertension (ICD-10) Diabetes ?E11.9 - Type 2 diabetes mellitus without complications (ICD-10) TIA (transient ischemic attack) ?G45.9 - Transient cerebral ischemic attack, unspecified (ICD-10) Surgical History (Updated 04/22/24 @ 01:20 by Stalin Kevin) History of appendectomy ?Z90.49 - Acquired absence of other specified parts of digestive tract (ICD- 10) H/O tubal ligation ?Z98.51 - Tubal ligation status (ICD-10) History of cholecystectomy ?Z90.49 - Acquired absence of other specified parts of digestive tract (ICD- 10) Family History (Updated 04/22/24 @ 01:15 by Stalin Kevin) Mother Family history of cancer Father MVA (motor vehicle accident) Brother Family history of stroke Social History (Updated 04/22/24 @ 01:26 by Stalin Kevin) Within the past year, how often did you have a drink containing alcohol: never Within the past year, how often did you have six or more drinks on one occasion: never Score interpretation: A score less than 3 is consistent with normal alcohol consumption. Smoking status: Former smoker Second hand tobacco smoke exposure: No Non-prescribed substance use: denies use Previous occupational history: no Known occupational exposures/hazards: No Highest level of school completed/degree received: high school graduate Do you want help with school or training: No Are you now , , , , never or living with a partner: In a typical week, how many times do you talk on the telephone with family, friends, or neighbors: 3 or more times per week How often do you get together with friends or relatives: 3 or more times per week How often do you attend catholic or nondenominational services: never Do you belong to any clubs or organizations such as catholic groups unions, fraternal or athletic groups, or school groups: no Total score: 1 Score interpretation: A score of less than or equal to 1 indicates the most socially isolated. Little interest or pleasure in doing things: not at all Feeling down, depressed, or hopeless: not at all Feel stressed/tense/nervous/anxious/difficulty sleeping: not at all Gender Identity: female Exam Constitutional Vital Signs, click to edit/add: Last Vital Signs Temp 98.4 F 07/18/24 18:45 Pulse 75 07/18/24 22:19 Resp 16 07/18/24 22:19 BP 143/73 H 07/18/24 22:19 Pulse Ox 97 07/18/24 22:19 O2 Del Method Room Air 07/18/24 18:45 Common normals: no apparent distress, average body habitus, oriented x3, no limitations, healthy appearing, alert and well nourished [facility] Common normals: normocephalic and head/scalp atraumatic Eye Common normals: PERRL, EOMs intact bilaterally and conjunctivae normal Respiratory Common normals: normal respiratory effort, no retractions, no use of accessory muscles and clear to auscultation bilaterally Cardio Common normals: regular rate, regular rhythm, S1 normal heart sound and S2 normal heart sound GI Common normals: Normal to inspection, nondistended, normoactive bowel sounds present and soft to palpation Extremity Common normals: normal to inspection and full ROM Neuro Common normals: oriented x3, CN's II-XII intact bilaterally, moves all extremities and no focal motor deficits Psych Appearance: grossly normal Course Vital Signs Vital signs: Vital Signs Pulse Oximetry 96 07/18/24 18:41 Temperature 98.4 F 07/18/24 18:45 Pulse Rate 75 07/18/24 22:19 Respiratory Rate 16 07/18/24 22:19 Blood Pressure 143/73 H 07/18/24 22:19 Pulse Oximetry 97 07/18/24 22:19 Oxygen Delivery Method Room Air 07/18/24 18:45 MDM - Arrhythmia/Palpitations MDM Narrative Medical decision making narrative: patient presents with occ flutter sensation in her chest and feeling crappy . Her medications have be adjusted for her BP. BP was low earlier today and improved after IV hydration in ER at [facility]. Now presents here with elevated BP. We gave her scheduled HS medications for her BP and it improved to 143 systolic. Workup in the department neg including serial troponin .She is discharged home to follow up with her doctor tomorrow. States she has a 2pm appointment Lab Data Labs: Lab Results 07/18/24 07/18/24 07/18/24 Range/Units 19:35 20:30 21:26 WBC 9.1 (4.0-11.0) 10^3/uL RBC 4.30 (4.20-5.40) 10^6/uL Hgb 11.7 L (12.0-16.0) g/dL Hct 36.1 (36.0-48.0) % MCV 84.0 (81.0-99.0) fL MCH 27.2 (26.7-34.0) pg MCHC 32.4 (29.9-35.2) g/dL RDW 14.2 (11.0-15.0) % Plt Count 233 (150-450) 10^3/uL MPV 10.5 (9.5-13.5) fL Neut % (Auto) 68.3 (43.0-75.0) % Lymph % (Auto) 21.9 (20.5-60.0) % Wilbarger % (Auto) 7.0 (1.7-12.0) % Eos % (Auto) 1.9 (0.9-7.0) % Baso % (Auto) 0.5 (0.2-2.0) % Neut # (Auto) 6.2 (1.4-6.5) 10^3/uL Lymph # (Auto) 2.0 (1.2-3.8) 10^3/uL Wilbarger # (Auto) 0.6 (0.3-0.8) 10^3/uL Eos # (Auto) 0.2 (0.0-0.7) 10^3/uL Baso # (Auto) 0.1 (0.0-0.1) 10^3/uL Abs Immat Gran (auto) 0.04 H (0.00-0.03) 10^3/uL Imm/Tot Granulo (auto) 0.4 (0.0-0.5) % D-Dimer 0.57 (<=0.59) mg/L FEU Sodium 143 (136-145) mmol/L Potassium 3.1 L (3.5-5.1) mmol/L Chloride 104 (98-107) mmol/L Carbon Dioxide 29.0 (21.0-32.0) mmol/L Anion Gap 13.1 BUN 15.0 (7.0-18.0) mg/dL Creatinine 1.40 H (0.55-1.02) mg/dL Est GFR ( Amer) 46 L (>=60) Est GFR (Non-Af Amer) 38 L (>=60) BUN/Creatinine Ratio 10.7 Glucose 109 H (74-106) mg/dL Calcium 9.0 (8.5-10.1) mg/dL Troponin I High Sens 9.9 12.5 (4.0-51.3) pg/mL Urine Color Lt. yellow (YELLOW) Urine Clarity Clear (CLEAR) Urine pH 6.0 (5.0-9.0) Ur Specific Arnett 1.015 (1.005-1.025) Urine Protein Trace (NEG/TRACE) mg/dL Urine Glucose (UA) Negative (NEGATIVE) mg/dL Urine Ketones Negative (NEGATIVE) mg/dL Urine Occult Blood Negative (NEGATIVE) Urine Nitrite Negative (NEGATIVE) Urine Bilirubin Negative (NEGATIVE) Urine Urobilinogen 0.2 (0.2-1.0) EU/dL Ur Leukocyte Esterase Negative (NEGATIVE) Discharge Plan Discharge Stand Alone Forms: Work/School Release, Portal Instructions Chief Complaint: Arrhythmia/Palpitations Clinical Impression: HTN (hypertension) Patient Disposition: Home, Self-Care Prescriptions / Home Meds: No Action metformin 500 mg tablet 500 mg PO BID aspirin 81 mg capsule 81 mg PO DAILY furosemide [Lasix] 20 mg tablet 20 mg PO DAILY Hold Instructions: Doctor's Order clonidine HCl 0.1 mg tablet 0.2 mg PO Q12H quetiapine 25 mg tablet 50 mg PO BEDTIME losartan 50 mg tablet 50 mg PO DAILY pantoprazole [Protonix] 40 mg tablet,delayed release (DR/EC) 40 mg PO DAILY Qty: 30 11RF rosuvastatin 40 mg capsule, sprinkle 40 mg PO DAILY carvedilol 25 mg tablet 25 mg PO BID clopidogrel 75 mg tablet 75 mg PO DAILY lorazepam [Ativan] 0.5 mg tablet 0.5 mg PO Q6H PRN (Reason: anxiety) Patient Comments: TAKE 1 TO 2 TABS spironolactone 25 mg tablet 25 mg PO .once in morning Print Language: [place] Instructions: Hypertension (ED) Additional Instructions: follow up with Dr Murillo tomorrow to recheck your Blood pressure Referrals: Carlito Murillo MD [Primary Care Provider] - 1 week
--- NOTE | 2024-07-18 19:28 | XR_ITS ---
The [address] [address] Patient Name: MILAN RASMUSSEN MRN: [id number] date: 1965 Sex: F Assigned Patient Location: ER Current Patient Location: ED.MAIN Accession/Order Number: [id number] Exam Date: 07/18/2024 19:45 Report Date: 07/18/2024 21:18 At the request of: LORENZO BARR Procedure: XR chest 1V EXAM: XR chest 1V , 07/18/2024 HISTORY: palpitations COMPARISON: Previous x-ray from 07/11/2024 TECHNIQUE: Portable upright AP x-ray of the chest. FINDINGS: Mild enlargement of the cardiac silhouette. Mild atherosclerotic calcification of the aortic arch. The lungs and costophrenic angles are clear. No acute osseous findings. XR/XR chest 1V IMPRESSION: Mild cardiac enlargement. No focal infiltrate or pulmonary edema. Electronically authenticated by: ALMA VIVAS Date: 07/18/2024 21:18
[2024-07-18 20:10] LABS: Basophils Absolute Auto 0.1 10^3/uL (0.0-0.1); Basophils Percent Auto 0.5 % (0.2-2.0); Eosinophils Absolute Auto 0.2 10^3/uL (0.0-0.7); Eosinophils Percent Auto 1.9 % (0.9-7.0); Hematocrit 36.1 % (36.0-48.0); Hemoglobin 11.7 g/dL (12.0-16.0); Immature Granulocytes Abs Auto 0.04 10^3/uL (0.00-0.03); Immature Granulocytes Pct Auto 0.4 % (0.0-0.5); Lymphocytes Percent Auto 21.9 % (20.5-60.0); Mean Corpuscular HGB Conc 32.4 g/dL (29.9-35.2); Mean Corpuscular Hemoglobin 27.2 pg (26.7-34.0); Mean Platelet Volume 10.5 fL (9.5-13.5); Monocytes Absolute Auto 0.6 10^3/uL (0.3-0.8); Neutrophils Absolute Auto 6.2 10^3/uL (1.4-6.5); Neutrophils Percent Auto 68.3 % (43.0-75.0); Platelet Count 233 10^3/uL (150-450); Red Cell Distribution Width 14.2 % (11.0-15.0); White Blood Count 9.1 10^3/uL (4.0-11.0)
[2024-07-18 20:23] LABS: D Dimer 0.57 mg/L FEU (<=0.59)
[2024-07-18 20:25] LABS: Anion Gap 13.1; BUN Creatinine Ratio 10.7; Chloride 104 mmol/L (98-107); Estimated GFR (African America 46 (>=60); Estimated GFR (Non-African Ame 38 (>=60); Glucose 109 mg/dL (74-106); Potassium 3.1 mmol/L (3.5-5.1); Sodium 143 mmol/L (136-145); Troponin I High Sensitivity 9.9 pg/mL (4.0-51.3)
[2024-07-18 20:42] LABS: Bilirubin Urine NEGATIVE (NEGATIVE); Blood Urine NEGATIVE (NEGATIVE); Clarity Urine CLEAR (CLEAR); Color Urine LT. YELLOW (YELLOW); Glucose Urine UA NEGATIVE (NEGATIVE); Ketones Urine NEGATIVE (NEGATIVE); Leukocyte Esterase Urine NEGATIVE (NEGATIVE); Nitrite Urine NEGATIVE (NEGATIVE); Protein Urine TRACE mg/dL (NEG/TRACE); Specific Gravity Urine 1.015 (1.005-1.025); Urobilinogen Urine 0.2 EU/dL (0.2-1.0)
[2024-07-18 20:43] LABS: Urine Microscopic Indicated NO
--- NOTE | 2024-07-18 21:16 | ECG_ITS ---
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
[2024-07-18] MEDS: CLONIDINE HCL 0.1 MG TABLET 0.2 MG PO (21:24)
[2024-07-18] MEDS: CARVEDILOL 25 MG TABLET PO (21:26)
[2024-07-18] MEDS: POTASSIUM CHLORIDE 10 MEQ ER TABLET 40 MEQ PO (21:28)
[2024-07-18 21:50] LABS: Troponin I High Sensitivity 12.5 pg/mL (4.0-51.3)
== END 2024-07-18 22:24 | disposition home or self-care (01) ==
PROVIDERS: Emergency Provider Internal Medicine; PCP Family Medicine
DX: I10 Essential (primary) hypertension (principal); Z95.5 Presence of coronary angioplasty implant and graft; Z87.891 Personal history of nicotine dependence
CPT/HCPCS: 36415; 71045; 80048; 81003; 84484; 85025; 85378; 93005; 99285

== ENCOUNTER 2024-07-20 08:06 | Outpatient (OUT) | payer MEDICAID, SELFPAY ==
--- OUTSIDE RECORDS SUMMARY | 2024-07-20 08:14 | XMS_ITS | CCD ---
Author Organization [facility] Care Team Providers Care Financial Management Name Role Phone Kendra Murillo Primary Care [...] Unavailable VIMAL, DR ADELIA Medrano Consulting Unavailable FEDERICA ANDERSON Referring Unavailable HERMINIA LI Attending Unavailable LEONORAYJOSEKENDRA Referring Unavailable HORANI, NONA Admitting Unavailable HORANI, NONA Attending Unavailable HORANI, NONA Referring Unavailable HORANI, NONA Referring Unavailable HORANI, NONA Referring Unavailable FELECIA CORDOBA Referring Unavailable HORANI, NONA Referring Unavailable FENG CHRISTIE Attending Unavailable MAC, MESERET Referring Unavailable BIJAN MITCHELL Attending Unavailable GOMEZ JAY Attending Unavailable BIJAN MITCHELL Attending Unavailable NONA ALFARO Referring Unavailable FENG CHRISTIE Attending Unavailable FEDERICA ANDERSON Referring Unavailable HERMINIA LI Referring Unavailable JOSE BETANCUR Referring Unavailable HORANI, NONA Admitting Unavailable DAVID NASSAR Attending Unavailable Allergies Allergy Classification Reported Allergen(s) Allergy Type Date of Onset Reaction(s) Facility (1 source) No Known Medication Allergies; 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: [No Known Medication Allergies] Propensity to adverse reactions (disorder) [facility] Repository (1 source) ALPRAZolam; 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: [ALPRAZOLAM] Drug Allergy [address] [place] [address] Repository (1 source) amLODIPine; 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: [AMLODIPINE] Drug Allergy 4 [facility] Repository (1 source) Lisinopril; 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: [LISINOPRIL] Drug Allergy [address] [place] [address] Repository Medications Current Medications Medication Drug Class(es) [...] (2 sources) Retained ureteric stent 08-29-2019 Episodic Complications of surgical procedures or medical care (2 sources) Unspecified adverse effect of drug or medicament, initial encounter; 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: [Unspecified adverse effect of drug or medicament, initial encounter] Onset: 4 Episodic Coronary atherosclerosis and other heart disease (7 sources) Coronary arteriosclerosis; 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: [Atherosclerotic heart disease of [place] coronary artery without angina pectoris] Onset: 3 [...] index 30+ - obesity 07-02-2021 Chronic Other nutritional; endocrine; and metabolic disorders (2 sources) Other obesity due to excess calories; 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: [Other obesity due to excess calories] Onset: 4 Chronic Other nutritional; endocrine; and metabolic disorders (2 sources) Body mass index (BMI) 37.0-37.9, adult; 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: [Body mass index (BMI) 37.0-37.9, adult] Onset: 4 Chronic Other screening for suspected conditions (not [...] disorders (2 sources) Nicotine dependence 12-20-2019 Chronic Syncope (2 sources) Syncope and collapse; 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: [Syncope and collapse] Onset: 4 Episodic Transient cerebral ischemia (2 sources) Transient cerebral [...] 11-26-2022 12-20-2019 Episodic Other aftercare (1 source) 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 For now please stop the Lasix please stop the clonidine. Follow-up with cardiology on September 05, call them ahead of time to try and change your provider, and you will discuss the results of your renal duplex ultrasound and assess if this needs a referral to vascular surgery. From my standpoint I would like you to take a dexamethasone pill 1 evening between 11 PM and midnight and the next morning come to the lab between 8 AM and 9 AM. The results will come to me and I will let you know if there is anything abnormal. We are going to get a CAT scan of your adrenal glands, if the adrenal glands look similar to how they did before then from my standpoint I do not need to monitor them any more. We need to test if your body if making excess steroids/cortisol. Please take dexamethasone 1 mg tablet between 11 pm and midnight the night before your blood test. You should be fasting that night (except for plain water) starting at 8 PM. Come to the lab in the morning and get blood drawn at 8 AM. We will be in touch regarding the results We need to test if your body if making excess steroids/cortisol. Please get your lab work done at one of these [facility] Lab Sites The results will then come straight to me I appreciate it [facility] [address], [place] Hours Wednesday - Wednesday 8 AM - 4PM (Closed 12 - 12:30 PM daily) Phone: [facility] [address] Hours: Wednesday - Wednesday 6 AM - 5 PM Saturday: 7 AM - 2 PM Phone: [address] Hours: Wednesday - Wednesday 7 AM - 3:30 PM Phone: [facility] [address] Hours: Wednesday - Wednesday 7 AM - 5:30 PM Phone: Kayy Maurer [facility] [address], [place] Hours: Wednesday - Wednesday 8 AM - 4:30 PM Phone: [facility] EDNURSon 07-18-2024 EDNURS ADR and relevant inf o reported to [place] in pharmacy d/t safety net being down. Viet Kelly RN 07/18/24 1139 [facility] EDNURS SENT FROM MD OFFICE RE: LOW BP; RECENT DC FROM [facility] FOR SAME [facility] EDPROVon 07-18-2024 EDPROV HPI Chief Complaint Patient presents with Hypotension Initial assessment completed by Dr Li at 0927. Aby Madrigal is a 59 y.o. female presenting to the ED with a chief complaint of hypotension. Pt states she was experiencing a bp of 80/50 while sitting at the doctors office this morning and had kaleidoscope eyes and now she feels tired. She had a nodule on her adrenal gland. She takes diuretics. She started 2 new meds yesterday. History provided by: Patient certified court interpreter used: No [place] Coma Scale Score: 15 Patient History Past [...] Never Review of Systems Review of Systems Physical Exam ED Triage Vitals [07/18/24 0903] Temp Heart Rate Resp BP 36.7 ???C (98 ???F) 72 16 109/58 SpO2 Temp src Heart Rate Source Patient Position 100 % -- -- -- BP Location FiO2 (%) -- -- Physical Exam Vitals and nursing note reviewed. Constitutional: General: She is not in acute distress. Appearance: She is well-developed. Comments: bp during exam 108/67 HENT: Head: Normocephalic and atraumatic. Eyes: Conjunctiva/sclera: Conjunctivae normal. Cardiovascular: Rate and Rhythm: Normal rate and regular rhythm. Heart sounds: No murmur heard. Pulmonary: Effort: Pulmonary effort is normal. No respiratory distress. Breath sounds: Normal breath sounds. Abdominal: Palpations: Abdomen is soft. Tenderness: There is no abdominal tenderness. Musculoskeletal: General: No swelling. Cervical back: Neck supple. Skin: General: Skin is warm and dry. Capillary Refill: Capillary refill takes less than 2 seconds. Neurological: Mental Status: She is alert. Procedures ED Course & MDM Diagnoses as of 07/18/24 0949 Pre-syncope Medication side effect Medical Decision Making I, Basilia senior, documented on behalf of Dr. Li. Chief complaint hypotension Differential Diagnosis includes but is not limited to medication side effect, hypotension, dehydration. Plan of Care: Fluids ------ RESULTS ----- Labs: Labs Reviewed - No data to display Radiology: No orders to display --- NURSING NOTES AND VITALS REVIEWED ----- The nursing notes within the ED encounter and vital signs as below have been reviewed. BP 115/54 Pulse 69 Temp 36.7 ???C (98 ???F) Resp 22 Ht 1.6 m (5' 3 ) Wt 93.9 kg (207 lb) SpO2 94% BMI 36.67 kg/m??? PROGRESS NOTES The plan has been discussed with the patient regarding the diagnosis and prognosis. All questions have been answered at this time and they are agreeable with the plan of care. Instructions were given to return immediately for any new or worrisome concerns. Your medication list ASK your doctor about these medications Instructions Last Dose Given Next [...] (75 mg) by mouth in the morning. isosorbide mononitrate ER 60 mg 24 hr tablet Commonly known as: Imdur Take 1 tablet (60 mg) by mouth in the morning for 98 doses. Do not crush or chew. Lasix 20 mg tablet Generic drug: furosemide [...] (40 mg) by mouth in the morning. sennosides-docusate sodium 8.6-50 mg tablet Commonly known as: Mikala-Colace Take 1 tablet by mouth if needed each day for constipation. spironolactone 25 mg tablet Commonly known as: Aldactone Take 1 tablet (25 mg) by mouth i (more content not included)... Normal [facility] Office Visiton 07-18-2024 Follow-up visit [id number] Aby Madrigal Cristina 1965 Date Provider Department [place] 07/18/2024 [id number] [facility] Family History Problem Relation Age of Onset Lung cancer Mother No Known Problems Father Lung cancer Sister Family Status - Relation Status Age at Mother Father Sister Level of Service:95317 NM OFFICE/OUTPATIENT NEW MODERATE MDM 45 MINUTES Reason for Visit and Comments: Nodules [Other] Normal [facility] Follow-up visit [id number] NeladamianAby spence Cristina 1965 Provider Department [place] 07/18/2024 [id number] [facility] Family History Problem Relation Age of Onset Lung cancer Mother No Known Problems Father Lung cancer Sister Family Status - Relation Status Age at Mother Father Sister Level of Service:NOCHG NM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 I am calling you to follow [...] No Patient Name Aby Madrigal Date 07/13/24 Normal [facility] Telephoneon 07-13-2024 Telephone [id number] Aby Madrigal 1965 F Date Provider Department Center 07/13/2024 GINNY MALONEY [facility] C Family History Problem Relation Age of Onset Lung cancer Mother No Known Problems Father Lung cancer Sister Family Status - Relation Status Age at Mother Father Sister Reason for Visit and Comments: Hospital Follow-up [832] Normal [facility] 30on 07-12-2024 30 The patient is Moderately [...] to address these barriers include . Normal [facility] ANTI-XA (HEPARIN LEVEL)on HEPARIN UNFRACTIONATED (U/ML) IN PPP BY CHROMOGENIC METHOD 0.60 IU/mL Normal 0.3-0.7 [facility] Comment on above: Order Comment: Waive d Testing in the ED is performed under the ED CLIA certificate #[id number]. Result Comment: [place] roxaban and Apixaban will interfere with the anti Xa assay used to monitor UFH and LMWH. Performed By: #### L [id number] #### [facility] ([facility]) [address] [place] [address] BASIC METABOLIC PANELon 06-23 Anion gap [Moles/Vol] 10 mmol/L Normal 7-20 [facility] Comment on above: Performed By: #### L [id number] #### [facility] ([facility]) [address] [place] [address] Calcium [Mass/Vol] 8.8 mg/dL Normal 8.6-10.3 [facility] Comment on above: Performed By: #### L [id number] #### [facility] ([facility]) [address] [place] [address] Chloride [Moles/Vol] 108 mmol/L High 98-107 [facility] Comment on above: Performed By: #### L [id number] #### [facility] ([facility]) [address] [place] [address] CO2 [Moles/Vol] 27 mmol/L Normal 21-31 [facility] Comment on above: Performed By: #### L [id number] #### [facility] ([facility]) [address] [place] [address] Creatinine [Mass/Vol] 0.89 mg/dL Normal 0.60-1.20 [facility] Comment on above: Performed By: #### L [id number] #### [facility] ([facility]) [address] [place] [address] GLOMERULAR FILTRATION RATE ML/MIN/1.73 SQ M.PREDICTED 74.2 mL/min/1.73m*2 Normal >60.0 [facility] Comment on above: Result Comment: [facility]???s estimated glomerular filtration rate (eGFR) will no [...] group of individuals. Performed By: #### L [id number] #### [facility] ([facility]) [address] [place] [address] Glucose [Mass/Vol] 109 mg/dL High 70-100 [facility] Comment on above: Performed By: #### L [id number] #### [facility] ([facility]) [address] [place] [address] Potassium [Moles/Vol] 3.4 mmol/L Low 3.5-5.1 [facility] Comment on above: Performed By: #### L [id number] #### [facility] ([facility]) [address] [place] [address] Sodium [Moles/Vol] 142 mmol/L Normal 136-145 [facility] Comment on above: Performed By: #### L [id number] #### [facility] ([facility]) [address] [place] [address] Urea nitrogen [Mass/Vol] 11 mg/dL Normal 7-25 [facility] Comment on above: Performed By: #### L [id number] #### [facility] ([facility]) [address] [place] [address] UREA NITROGEN/CREATININE (MASS RATIO) IN SER/PLAS 12.4 Normal [facility] Comment on above: Performed By: #### L [id number] #### [facility] ([facility]) [address] [place] [address] CBC WITH AUTO DIFFERENTIALon 07-12-2024 Basophils (Bld) [#/Vol] 0.04 10*3/uL Normal 0.00-0.20 [facility] Comment on above: Performed By: #### L [id number] #### [facility] ([facility]) [address] [place] [address] Basophils/100 WBC (Bld) 0.6 % Normal 0.0-1.0 [facility] Comment on above: Performed By: #### L [id number] #### [facility] ([facility]) [address] [place] [address] Eosinophils (Bld) [#/Vol] 0.22 10*3/uL Normal 0.00-0.50 [facility] Comment on above: Performed By: #### L [id number] #### [facility] ([facility]) [address] [place] [address] Eosinophils/100 WBC (Bld) 3.5 % Normal 0.0-6.0 [facility] Comment on above: Performed By: #### L [id number] #### [facility] ([facility]) [address] [place] [address] Erythrocyte distribution width (RBC) [Ratio] 14.5 % Normal 11.5-15.0 [facility] Comment on above: Performed By: #### L [id number] #### [facility] ([facility]) [address] [place] [address] ERYTHROCYTE MEAN CORPUSCULAR HEMOGLOBIN CONCENTRATION (G/DL) BY AUTOMATED 32.7 g/dL Normal 32.0-35.0 [facility] Comment on above: Performed By: #### L [id number] #### [facility] ([facility]) [address] [place] [address] Hematocrit (Bld) [Volume fraction] 34.2 % Low 36.0-48.0 [facility] Comment on above: Performed By: #### L [id number] #### [facility] ([facility]) [address] [place] [address] Hemoglobin (Bld) [Mass/Vol] 11.2 g/dL Low 12.0-15.0 [facility] Comment on above: Performed By: #### L [id number] #### [facility] ([facility]) [address] [place] [address] Immature granulocytes (Bld) [#/Vol] 0.01 10*3/uL Normal 0.00-0.20 [facility] Comment on above: Performed By: #### L [id number] #### [facility] ([facility]) [address] [place] [address] Immature granulocytes/100 WBC (Bld) 0.2 % Normal 0.0-1.0 [facility] Comment on above: Performed By: #### L [id number] #### [facility] ([facility]) [address] [place] [address] Lymphocytes (Bld) [#/Vol] 2.37 10*3/uL Normal 1.20-4.00 [facility] Comment on above: Performed By: #### L [id number] #### [facility] ([facility]) [address] [place] [address] Lymphocytes/100 WBC (Bld) 37.8 % Normal 20.0-45.0 [facility] Comment on above: Performed By: #### L [id number] #### [facility] ([facility]) [address] [place] [address] MCH (RBC) [Entitic mass] 27.4 pg Normal 27.0-33.0 [facility] Comment on above: Performed By: #### L [id number] #### [facility] ([facility]) [address] [place] [address] MCV (RBC) [Entitic vol] 83.6 fL Normal 82.0-98.0 [facility] Comment on above: Performed By: #### L [id number] #### [facility] ([facility]) [address] [place] [address] Monocytes (Bld) [#/Vol] 0.43 10*3/uL Normal 0.10-1.00 [facility] Comment on above: Performed By: #### L [id number] #### [facility] ([facility]) [address] [place] [address] Monocytes/100 WBC (Bld) 6.9 % Normal 5.0-12.0 [facility] Comment on above: Performed By: #### L [id number] #### [facility] ([facility]) [address] [place] [address] Neutrophils (Bld) [#/Vol] 3.20 10*3/uL Normal 1.60-7.60 [facility] Comment on above: Performed By: #### L [id number] #### [facility] ([facility]) [address] [place] [address] Neutrophils/100 WBC (Bld) 51.0 % Normal 40.0-72.0 [facility] Comment on above: Performed By: #### L [id number] #### [facility] ([facility]) [address] [place] [address] NRBC (PER 100 WBCS) BY AUTOMATED COUNT 0.0 % Normal 0 [facility] Comment on above: Performed By: #### L [id number] #### [facility] ([facility]) [address] [place] [address] PLATELETS (10*3/UL) IN BLOOD AUTOMATED COUNT 223 10*3/uL Normal 150-400 [facility] Comment on above: Performed By: #### L [id number] #### [facility] ([facility]) [address] [place] [address] RBC (Bld) [#/Vol] 4.09 10*6/uL Normal 3.80-5.00 [facility] Comment on above: Performed By: #### L [id number] #### [facility] ([facility]) [address] [place] [address] WBC (Bld) [#/Vol] 6.27 10*3/uL Normal 4.00-10.60 [facility] Comment on above: Performed By: #### L [id number] #### [facility] ([facility]) [address] [place] [address] MAGNESIUMon 07-12-2024 Magnesium [Mass/Vol] 1.7 mg/dL Low 1.9-2.7 [facility] Comment on above: Performed By: #### L [id number] #### [facility] ([facility]) [address] [place] [address] POCT GLUCOSE METER UNSOLICIT ED RESULTSon 07-12-2024 Glucose [Mass/Vol] 102 mg/dL Normal 70-105 [facility] Comment on above: Order Comment: Basel ine aPTT before initiating heparin infusion. Result Comment: shodamien [email or web address] Performed By: #### L [id number] #### [facility] ([facility]) [address] [place] [address] TROPONIN Ion 07-12-2024 Troponin I.cardiac [Mass/Vol] 0.01 ng/mL Normal 0.00-0.04 [facility] Comment on above: Performed By: #### L [id number] #### [facility] ([facility]) [address] [place] [address] 30on 07-11-2024 30 The patient is Moderately [...] and maintained or improved Outcome: Progressing Normal [facility] 30 The patient is Moderately Stable - Low risk of patient condition declining or worsening The patient's goals for the shift include no chest pain The clinical goals for the shift include stable vital/no chest pain Over the shift, the patient did not make progress toward the following goals. Barriers to progression include . Recommendations to address these barriers include . Normal [facility] ALDOSTERONEon 07-11-2024 ALDOSTERONE (NG/DL) IN SER/PLAS 4.9 ng/dL Normal [facility] Comment on above: Result Comment: INTE RPRETIVE [...] reference intervals for this test in the [employer] [facility] Test Directory ([employer]). Performed By: [facility] [address] [place] [address] Parent Aide: Navneet Simeon MD, PhD CLIA Number: [id number] Performed By: #### L [id number] #### [facility] ([facility]) [address] [place] [address] ANTI-XA (HEPARIN LEVEL)on HEPARIN UNFRACTIONATED (U/ML) IN PPP BY CHROMOGENIC METHOD 0.42 IU/mL Normal 0.3-0.7 [facility] Comment on above: Order Comment: Check anti-Xa level every 6 hours while on heparin infusion, or per protocol. Result Comment: [place] roxaban and Apixaban will interfere with the anti Xa assay used to monitor UFH and LMWH. Performed By: #### L [id number] #### [facility] ([facility]) [address] [place] [address] HEPARIN UNFRACTIONATED (U/ML) IN PPP BY CHROMOGENIC METHOD 0.20 IU/mL Low 0.3-0.7 [facility] Comment on above: Order Comment: Basel ine aPTT before initiating heparin infusion. Result Comment: [place] roxaban and Apixaban will interfere with the anti Xa assay used to monitor UFH and LMWH. Performed By: #### L [id number] #### [facility] ([facility]) [address] [place] [address] APTTon 07-11-2024 ACTIVATED PARTIAL THROMBOPLASTIN TIME IN PPP BY COAGULATION ASSAY 43.0 Seconds High 25.0-35.0 [facility] Comment on above: Result Comment: Clin ical significance of the APTT is questionable in the presence of heparin. Performed By: #### L [id number] #### [facility] ([facility]) [address] [place] [address] BASIC METABOLIC PANELon 06-23 Anion gap [Moles/Vol] 9 mmol/L Normal 7-20 [facility] Comment on above: Performed By: #### L [id number] #### [facility] ([facility]) [address] [place] [address] Calcium [Mass/Vol] 8.8 mg/dL Normal 8.6-10.3 [facility] Comment on above: Performed By: #### L [id number] #### [facility] ([facility]) [address] [place] [address] Chloride [Moles/Vol] 108 mmol/L High 98-107 [facility] Comment on above: Performed By: #### L [id number] #### [facility] ([facility]) [address] [place] [address] CO2 [Moles/Vol] 28 mmol/L Normal 21-31 [facility] Comment on above: Performed By: #### L [id number] #### [facility] ([facility]) [address] [place] [address] Creatinine [Mass/Vol] 1.09 mg/dL Normal 0.60-1.20 [facility] Comment on above: Performed By: #### L [id number] #### [facility] ([facility]) [address] [place] [address] GLOMERULAR FILTRATION RATE ML/MIN/1.73 SQ M.PREDICTED 58.2 mL/min/1.73m*2 Low >60.0 [facility] Comment on above: Result Comment: [facility]???s estimated glomerular filtration rate (eGFR) will no [...] group of individuals. Performed By: #### L [id number] #### [facility] ([facility]) [address] [place] [address] Glucose [Mass/Vol] 113 mg/dL High 70-100 [facility] Comment on above: Performed By: #### L [id number] #### [facility] ([facility]) [address] [place] [address] Potassium [Moles/Vol] 3.4 mmol/L Low 3.5-5.1 [facility] Comment on above: Performed By: #### L [id number] #### [facility] ([facility]) [address] [place] [address] Sodium [Moles/Vol] 142 mmol/L Normal 136-145 [facility] Comment on above: Performed By: #### L [id number] #### [facility] ([facility]) [address] [place] [address] Urea nitrogen [Mass/Vol] 14 mg/dL Normal 7-25 [facility] Comment on above: Performed By: #### L [id number] #### [facility] ([facility]) [address] [place] [address] UREA NITROGEN/CREATININE (MASS RATIO) IN SER/PLAS 12.8 Normal [facility] Comment on above: Performed By: #### L [id number] #### [facility] ([facility]) [address] [place] [address] CBC WITH AUTO DIFFERENTIALon 07-11-2024 Basophils (Bld) [#/Vol] 0.04 10*3/uL Normal 0.00-0.20 [facility] Comment on above: Performed By: #### L [id number] #### [facility] ([facility]) [address] [place] [address] Basophils/100 WBC (Bld) 0.6 % Normal 0.0-1.0 [facility] Comment on above: Performed By: #### L [id number] #### [facility] ([facility]) [address] [place] [address] Eosinophils (Bld) [#/Vol] 0.16 10*3/uL Normal 0.00-0.50 [facility] Comment on above: Performed By: #### L [id number] #### [facility] ([facility]) [address] [place] [address] Eosinophils/100 WBC (Bld) 2.2 % Normal 0.0-6.0 [facility] Comment on above: Performed By: #### L [id number] #### [facility] ([facility]) [address] [place] [address] Erythrocyte distribution width (RBC) [Ratio] 14.6 % Normal 11.5-15.0 [facility] Comment on above: Performed By: #### L [id number] #### [facility] ([facility]) [address] [place] [address] ERYTHROCYTE MEAN CORPUSCULAR HEMOGLOBIN CONCENTRATION (G/DL) BY AUTOMATED 32.0 g/dL Normal 32.0-35.0 [facility] Comment on above: Performed By: #### L [id number] #### [facility] ([facility]) [address] [place] [address] Hematocrit (Bld) [Volume fraction] 36.2 % Normal 36.0-48.0 [facility] Comment on above: Performed By: #### L [id number] #### [facility] ([facility]) [address] [place] [address] Hemoglobin (Bld) [Mass/Vol] 11.6 g/dL Low 12.0-15.0 [facility] Comment on above: Performed By: #### L [id number] #### [facility] ([facility]) [address] [place] [address] Immature granulocytes (Bld) [#/Vol] 0.02 10*3/uL Normal 0.00-0.20 [facility] Comment on above: Performed By: #### L [id number] #### [facility] ([facility]) [address] [place] [address] Immature granulocytes/100 WBC (Bld) 0.3 % Normal 0.0-1.0 [facility] Comment on above: Performed By: #### L [id number] #### [facility] ([facility]) [address] [place] [address] Lymphocytes (Bld) [#/Vol] 2.34 10*3/uL Normal 1.20-4.00 [facility] Comment on above: Performed By: #### L [id number] #### [facility] ([facility]) [address] [place] [address] Lymphocytes/100 WBC (Bld) 32.6 % Normal 20.0-45.0 [facility] Comment on above: Performed By: #### L [id number] #### [facility] ([facility]) [address] [place] [address] MCH (RBC) [Entitic mass] 27.2 pg Normal 27.0-33.0 [facility] Comment on above: Performed By: #### L [id number] #### [facility] ([facility]) [address] [place] [address] MCV (RBC) [Entitic vol] 85.0 fL Normal 82.0-98.0 [facility] Comment on above: Performed By: #### L [id number] #### [facility] ([facility]) [address] [place] [address] Monocytes (Bld) [#/Vol] 0.49 10*3/uL Normal 0.10-1.00 [facility] Comment on above: Performed By: #### L [id number] #### [facility] ([facility]) [address] [place] [address] Monocytes/100 WBC (Bld) 6.8 % Normal 5.0-12.0 [facility] Comment on above: Performed By: #### L [id number] #### [facility] ([facility]) [address] [place] [address] Neutrophils (Bld) [#/Vol] 4.13 10*3/uL Normal 1.60-7.60 [facility] Comment on above: Performed By: #### L [id number] #### [facility] ([facility]) [address] [place] [address] Neutrophils/100 WBC (Bld) 57.5 % Normal 40.0-72.0 [facility] Comment on above: Performed By: #### L [id number] #### [facility] ([facility]) [address] [place] [address] NRBC (PER 100 WBCS) BY AUTOMATED COUNT 0.0 % Normal 0 [facility] Comment on above: Performed By: #### L [id number] #### [facility] ([facility]) [address] [place] [address] PLATELETS (10*3/UL) IN BLOOD AUTOMATED COUNT 245 10*3/uL Normal 150-400 [facility] Comment on above: Performed By: #### L [id number] #### [facility] ([facility]) [address] [place] [address] RBC (Bld) [#/Vol] 4.26 10*6/uL Normal 3.80-5.00 [facility] Comment on above: Performed By: #### L [id number] #### [facility] ([facility]) [address] [place] [address] WBC (Bld) [#/Vol] 7.18 10*3/uL Normal 4.00-10.60 [facility] Comment on above: Performed By: #### L [id number] #### [facility] ([facility]) [address] [place] [address] CONSULTon 07-11-2024 CONSULT -- Attestation signed by Meseret Mac MD at 07/11/2024 4:17 PM By using [...] surgery and endocrinology. I believe Dr. Jackie Borwn is the endocrine surgeon in the [place] area that would be most appropriate and [...] with plan for outpatient follow up with [place] [facility] and endocrine surgery and endocrinology Meseret Mac MD Cardiology Consult Note Reason for Consult: Chest pain HPI: Aby Madrigal is a 59 y.o. female patient is presenting as a transfer from [facility] for the evaluation of chest pain. Past [...] medical history of Abnormal ECG, Diabetes mellitus ([facility]/HCC), Hyperlipidemia, Hypertension, Obstructive sleep apnea, Panic attacks, [...] Value Ventricular Rate 56 Atrial Rate 56 NM Interval 180 QRS DURATION 94 QT Interval 430 QTC (more content not included)... Normal [facility] EDPROVon 07-11-2024 EDPROV HPI Chief Complaint Patient presents with Chest Pain Patient had heart cath with 1 stent placed approx 10 days ago at this hospital, developed CP last evening Initial assessment completed by Dr. Anderson at 1036. Aby Madrigal is a 59 y.o. female presenting to the ED with a chief complaint of chest pain. Pt states she has chest pain that started last night at 1030pm. Pt states the chest pain is in the middle of her chest and radiates to where her gallbladder used to be. Pt states she [place] to cardiology. Pt states she had a cardiac stent placed last week. She denies fever, coughing, vomiting, abdominal pain. She admits diarrhea. She felt better when given ativan and worse when she was given morphine. She has had her gallbladder removed. History provided by: Patient certified court interpreter used: No Chest Pain Associated symptoms: no abdominal pain, no cough, no fever and no vomiting [place] Coma Scale Score: 15 Patient History Past [...] ED Course & MDM Medical Decision Making IBasilia, documented on behalf of Dr. Anderson. Chief complaint chest pain Plan of Care: APTT, Troponin I, CBC, Protime-INR, BMP Attestation: Provider Statement SALVADOR: Provider Statement 2nd Scribe. By electronically signing this emergency patient record, the Emergency Physician/SILK SCREEN PAINTER/PA-C attests that all entries made into the electronic medical record by the scribe prior to the Physician/SILK SCREEN PAINTER/PA-C signature reflect an accurate accounting of the evaluation and care rendered by that Emergency Physician/SILK SCREEN PAINTER/PA-C. The Emergency Physician/SILK SCREEN PAINTER/PA-C assumes full responsibility for those entries. The Emergency Physician/SILK SCREEN PAINTER/PA-C also attests that any patient testing or treatment that was instituted by nursing staff. Normal [facility] EDPROV HPI Chief Complaint Patient presents with Chest Pain Patient had heart cath with 1 stent placed approx 10 days ago at this hospital, developed CP last evening Initial assessment completed by Dr. Anderson at 1036. Aby Madrigal is a 59 y.o. female presenting to the ED with a chief complaint of chest pain. Pt states she has chest pain that started last night at 1030pm. Pt states the chest pain is in the middle of her chest and radiates to where her gallbladder used to be. Pt states she was [place] be transferred to cardiology. Pt states she had a cardiac stent placed last week. She denies fever, coughing, vomiting, abdominal pain. She admits diarrhea. She felt better when given ativan and worse when she was given morphine. She has had her gallbladder removed. History provided by: Patient certified court interpreter used: No Chest Pain Associated symptoms: no abdominal pain, no cough, no fever and no vomiting [place] Coma Scale Score: 15 Patient History Past [...] Behavior normal. Critical Care Performed by: Federica Anderson MD Authorized by: Federica Anderson MD Critical care provider statement: Critical care [...] MDM ED Course as of 07/11/24 1256 WedJul 11, 2024 1041 Cardiology consulted [AT] ED Course User Index [AT] Federica Anderson MD Diagnoses as of 07/11/24 1256 NSTEMI (non-ST elevated myocardial infarction) ([facility]) Medical Decision Making Amount and/or Complexity of Data Reviewed Labs: ordered. Decision-making details documented in ED Course. ECG/medicine tests: ordered and independent interpretation performed. Decision-making details documented in ED Course. Risk Drug therapy requiring intensive monitoring for toxicity. Decision regarding hospitalization. Minor surgery with identified risk factors. IBasilia (more content not included)... Invalid Interpretation Code [facility] POCT GLUCOSE METER UNSOLICIT ED RESULTSon 07-11-2024 Glucose [Mass/Vol] 122 mg/dL High 70-105 [facility] Comment on above: Order Comment: Waive d Testing in the ED is performed under the ED CLIA certificate #[id number]. Result Comment: [email or web address] Performed By: #### L [id number] #### [facility] ([facility]) [address] [place] [address] PROTIME-INRon 07-11-2024 INR IN PPP BY COAGULATION ASSAY 1.00 Normal 0.90-1.10 [facility] Comment on above: Result Comment: ACCC P [...] RANGE. CHEST 1995;108:[id number]. Performed By: #### L [id number] #### [facility] ([facility]) [address] [place] [address] PROTHROMBIN TIME (PT) IN PPP BY COAGULATION ASSAY 13.2 Seconds Normal 12.3-14.8 [facility] Comment on above: Performed By: #### L [id number] #### [facility] ([facility]) [address] [place] [address] RENIN ACTIVITYon 07-11-2024 RENIN ACTIVITY <0.1 Normal [facility] Comment on above: Result Comment: INTE RPRETIVE INFORMATION: Renin Activity Adult, Normal sodium diet: Supine ................. 0.2-1.6 ng/mL/hr Upright ................ 0.5-4.0 ng/mL/hr Children, Normal sodium diet, Supine: [place] (1-7 days) ..... 2.0-35.0 ng/mL/hr Cord blood [...] developed and its performance characteristics determined by [facility]. It has not been cleared or approved by the [place] Food and Drug Administration. This test was performed in a CLIA certified laboratory and is intended for clinical purposes. Performed By: [facility] [address] [place] [id number] Parent Aide: Navneet Simeon MD, PhD CLIA Number: [id number] Performed By: #### L [id number] #### [facility] ([facility]) [address] [place] [address] TROPONIN Ion 07-11-2024 Troponin I.cardiac [Mass/Vol] 0.01 ng/mL Normal 0.00-0.04 [facility] Comment on above: Performed By: #### L [id number] #### [facility] ([facility]) [address] [place] [address] Office Visiton 07-10-2024 Follow-up visit [id number] Aby Madrigal 1965 F Date Provider Department Center 07/10/2024 [id number] MITCHELL CARD [facility] Family History Problem Relation Age of Onset Lung cancer Mother No Known Problems Father Lung cancer Sister Family Status - Relation Status Age at Mother Father Sister Level of Service:00440 NM OFFICE/OUTPATIENT ESTABLISHED MOD MDM 30 MIN Reason for Visit and Comments: Coronary Artery Disease [187] Post-Cath [731] Normal [facility] 36on 07-03-2024 36 Post Discharge Call Good morning, I am Ginny Kirkland, RN a lead nurse from [facility]. I am calling you to follow [...] Patient Name Aby Madrigal Date 07/03/24 Normal [facility] Telephoneon 07-03-2024 Telephone [id number] Aby Madrigal 1965 F Date Provider Department Center 07/03/2024 [facility] Problem Relation Age of Onset Lung cancer Mother No Known Problems Father Lung cancer Sister Family Status - Relation Status Age at Mother Father Sister Reason for Visit and Comments: Hospital Follow-up [832] Normal [facility] 30on 07-01-2024 30 The patient is Moderately [...] and maintained or improved Outcome: Progressing Normal [facility] BASIC METABOLIC PANELon 06-22 Anion gap [Moles/Vol] 14 mmol/L Normal 7-20 [facility] Comment on above: Performed By: #### L [id number] #### [facility] ([facility]) [address] [place] [address] Calcium [Mass/Vol] 8.2 mg/dL Low 8.6-10.3 [facility] Comment on above: Performed By: #### L [id number] #### [facility] ([facility]) [address] [place] [address] Chloride [Moles/Vol] 106 mmol/L Normal 98-107 [facility] Comment on above: Performed By: #### L [id number] #### [facility] ([facility]) [address] [place] [address] CO2 [Moles/Vol] 25 mmol/L Normal 21-31 [facility] Comment on above: Performed By: #### L [id number] #### [facility] ([facility]) [address] [place] [address] Creatinine [Mass/Vol] 0.91 mg/dL Normal 0.60-1.20 [facility] Comment on above: Performed By: #### L [id number] #### [facility] ([facility]) [address] [place] [address] GLOMERULAR FILTRATION RATE ML/MIN/1.73 SQ M.PREDICTED 72.2 mL/min/1.73m*2 Normal >60.0 [facility] Comment on above: Result Comment: [facility]???s estimated glomerular filtration rate (eGFR) will no [...] individuals. Performed By: #### L [id number] #### [facility] ([facility]) [address] [place] [address] Glucose [Mass/Vol] 101 mg/dL High 70-100 [facility] Comment on above: Performed By: #### L [id number] #### [facility] ([facility]) [address] [place] [address] Potassium [Moles/Vol] 3.5 mmol/L Normal 3.5-5.1 [facility] Comment on above: Performed By: #### L [id number] #### [facility] ([facility]) [address] [place] [address] Sodium [Moles/Vol] 141 mmol/L Normal 136-145 [facility] Comment on above: Performed By: #### L [id number] #### [facility] ([facility]) [address] [place] [address] Urea nitrogen [Mass/Vol] 13 mg/dL Normal 7-25 [facility] Comment on above: Performed By: #### L [id number] #### [facility] ([facility]) [address] [place] [address] UREA NITROGEN/CREATININE (MASS RATIO) IN SER/PLAS 14.3 Normal [facility] Comment on above: Performed By: #### L [id number] #### [facility] ([facility]) [address] [place] [address] CBCon 07-01-2024 Erythrocyte distribution width (RBC) [Ratio] 15.4 % High 11.5-15.0 [facility] Comment on above: Performed By: #### L [id number] #### [facility] ([facility]) [address] [place] [address] ERYTHROCYTE MEAN CORPUSCULAR HEMOGLOBIN CONCENTRATION (G/DL) BY AUTOMATED 32.1 g/dL Normal 32.0-35.0 [facility] Comment on above: Performed By: #### L [id number] #### [facility] ([facility]) [address] [place] [address] Hematocrit (Bld) [Volume fraction] 38.6 % Normal 36.0-48.0 [facility] Comment on above: Performed By: #### L [id number] #### [facility] ([facility]) [address] [place] [address] Hemoglobin (Bld) [Mass/Vol] 12.4 g/dL Normal 12.0-15.0 [facility] Comment on above: Performed By: #### L [id number] #### [facility] ([facility]) [address] [place] [address] MCH (RBC) [Entitic mass] 26.9 pg Low 27.0-33.0 [facility] Comment on above: Performed By: #### L [id number] #### [facility] ([facility]) [address] [place] [address] MCV (RBC) [Entitic vol] 83.7 fL Normal 82.0-98.0 [facility] Comment on above: Performed By: #### L [id number] #### [facility] ([facility]) [address] [place] [address] PLATELETS (10*3/UL) IN BLOOD AUTOMATED COUNT 238 10*3/uL Normal 150-400 [facility] Comment on above: Performed By: #### L [id number] #### [facility] ([facility]) [address] [place] [address] RBC (Bld) [#/Vol] 4.61 10*6/uL Normal 3.80-5.00 [facility] Comment on above: Performed By: #### L [id number] #### [facility] ([facility]) [address] [place] [address] WBC (Bld) [#/Vol] 7.04 10*3/uL Normal 4.00-10.60 [facility] Comment on above: Performed By: #### L [id number] #### [facility] ([facility]) [address] [place] [address] LIPID PANELon 07-01-2024 CHOL/HDL 3.8 mg/dL Normal [facility] Comment on above: Performed By: #### L [id number] #### [facility] ([facility]) [address] [place] [address] Cholesterol [Mass/Vol] 128 mg/dL Normal 120-200 [facility] Comment on above: Performed By: #### L [id number] #### [facility] ([facility]) [address] [place] [address] Magnesium [Mass/Vol] 87 mg/dL Normal 40-149 [facility] Comment on above: Result Comment: TRIG LYCERIDE REFERENCE RANGE: 20 YEARS AND OLDER CARDIOVASCULAR RISK LESS THAN 150 mg/dL LOW RISK 150 TO 199 mg/dL BORDERLINE RISK 200 mg/dL AND GREATER HIGH RISK Performed By: #### L [id number] #### [facility] ([facility]) [address] [facility] [place] [address] Magnesium [Mass/Vol] 77 mg/dL Normal 0-160 [facility] Comment on above: Performed By: #### L [id number] #### [facility] ([facility]) [address] [place] [address] Magnesium [Mass/Vol] 34 mg/dL Normal 23-92 [facility] Comment on above: Performed By: #### L [id number] #### [facility] ([facility]) [address] [place] [address] NON HDL CHOL. (LDL+VLDL) 94 Normal [facility] Comment on above: Performed By: #### L [id number] #### [facility] ([facility]) [address] [place] [address] TOTAL VLDL-C 17 mg/dL Normal 0-40 [facility] Comment on above: Performed By: #### L [id number] #### [facility] ([facility]) [address] [place] [address] MAGNESIUMon 07-01-2024 Magnesium [Mass/Vol] 2.0 mg/dL Normal 1.9-2.7 [facility] Comment on above: Performed By: #### L [id number] #### [facility] ([facility]) [address] [place] [address] NURSNOTEon 07-01-2024 NURSNOTE Discharge instructio ns given, reviewed, questions, answered, signed, copy received. Normal [facility] POCT GLUCOSE METER UNSOLICIT ED RESULTSon 07-01-2024 Glucose [Mass/Vol] 124 mg/dL High 70-105 [facility] Comment on above: Order Comment: Waive d Testing in the ED is performed under the ED CLIA certificate #[id number]. Result Comment: [email or web address] Performed By: #### L [id number] #### [facility] ([facility]) [address] [place] [address] Glucose [Mass/Vol] 106 mg/dL High 70-105 [facility] Comment on above: Order Comment: Waive d Testing in the ED is performed under the ED CLIA certificate #[id number]. Result Comment: [email or web address] Performed By: #### L [id number] #### [facility] ([facility]) [address] [place] [address] TROPONIN Ion 07-01-2024 Troponin I.cardiac [Mass/Vol] 0.09 ng/mL High 0.00-0.04 [facility] Comment on above: Performed By: #### L [id number] #### [facility] ([facility]) [address] [place] [address] 30on 06-30-2024 30 The patient is Moderately Stable - Low risk of patient condition declining or worsening The patient's goals for the shift include comfort, rest The clinical goals for the shift include stable vitals, comfort Problem: Pain - Adult Goal: Verbalizes/displays adequate comfort level or baseline comfort level Outcome: Not Progressing Normal [facility] 30 Daily Case Managemen t Update Multidisciplinary [...] PT Recommendations: OT Recommendations: New Consults: Normal [facility] 30 The patient is Moderately Stable - Low risk of patient condition declining or worsening The patient's goals for the shift include COMFORT The clinical goals for the shift include VSS Over the shift, the patient did not make progress toward the following goals. Barriers to progression include . Recommendations to address these barriers include . Normal [facility] ANTI-XA (HEPARIN LEVEL)on HEPARIN UNFRACTIONATED (U/ML) IN PPP BY CHROMOGENIC METHOD 0.64 IU/mL Normal 0.3-0.7 [facility] Comment on above: Order Comment: Waive d Testing in the ED is performed under the ED CLIA certificate #[id number]. Result Comment: [place] roxaban and Apixaban will interfere with the anti Xa assay used to monitor UFH and LMWH. Performed By: #### L [id number] #### [facility] ([facility]) [address] [place] [address] BASIC METABOLIC PANELon 08-0 Anion gap [Moles/Vol] 11 mmol/L Normal 7-20 [facility] Comment on above: Performed By: #### L [id number] #### [facility] ([facility]) [address] [place] [address] Calcium [Mass/Vol] 8.3 mg/dL Low 8.6-10.3 [facility] Comment on above: Performed By: #### L [id number] #### [facility] ([facility]) [address] [place] [address] Chloride [Moles/Vol] 110 mmol/L High 98-107 [facility] Comment on above: Performed By: #### L [id number] #### [facility] ([facility]) [address] [place] [address] CO2 [Moles/Vol] 26 mmol/L Normal 21-31 [facility] Comment on above: Performed By: #### L [id number] #### [facility] ([facility]) [address] [place] [address] Creatinine [Mass/Vol] 0.81 mg/dL Normal 0.60-1.20 [facility] Comment on above: Performed By: #### L [id number] #### [facility] ([facility]) [address] [place] [address] GLOMERULAR FILTRATION RATE ML/MIN/1.73 SQ M.PREDICTED 83.1 mL/min/1.73m*2 Normal >60.0 [facility] Comment on above: Result Comment: The [facility]???s estimated glomerular filtration rate (eGFR) will no [...] group of individuals. Performed By: #### L [id number] #### [facility] ([facility]) [address] [place] [address] Glucose [Mass/Vol] 110 mg/dL High 70-100 [facility] Comment on above: Performed By: #### L [id number] #### [facility] ([facility]) [address] [place] [address] Potassium [Moles/Vol] 3.7 mmol/L Normal 3.5-5.1 [facility] Comment on above: Performed By: #### L [id number] #### [facility] ([facility]) [address] [place] [address] Sodium [Moles/Vol] 143 mmol/L Normal 136-145 [facility] Comment on above: Performed By: #### L [id number] #### [facility] ([facility]) [address] [place] [address] Urea nitrogen [Mass/Vol] 10 mg/dL Normal 7-25 [facility] Comment on above: Performed By: #### L [id number] #### [facility] ([facility]) [address] [place] [address] UREA NITROGEN/CREATININE (MASS RATIO) IN SER/PLAS 12.3 Normal [facility] Comment on above: Performed By: #### L [id number] #### [facility] ([facility]) [address] [place] [address] CBCon 06-30-2024 Erythrocyte distribution width (RBC) [Ratio] 15.3 % High 11.5-15.0 [facility] Comment on above: Performed By: #### L [id number] #### [facility] ([facility]) [address] [place] [address] ERYTHROCYTE MEAN CORPUSCULAR HEMOGLOBIN CONCENTRATION (G/DL) BY AUTOMATED 31.3 g/dL Low 32.0-35.0 [facility] Comment on above: Performed By: #### L [id number] #### [facility] ([facility]) [address] [place] [address] Hematocrit (Bld) [Volume fraction] 36.7 % Normal 36.0-48.0 [facility] Comment on above: Performed By: #### L [id number] #### [facility] ([facility]) [address] [place] [address] Hemoglobin (Bld) [Mass/Vol] 11.5 g/dL Low 12.0-15.0 [facility] Comment on above: Performed By: #### L [id number] #### [facility] ([facility]) [address] [place] [address] MCH (RBC) [Entitic mass] 26.9 pg Low 27.0-33.0 [facility] Comment on above: Performed By: #### L [id number] #### [facility] ([facility]) [address] [place] [address] MCV (RBC) [Entitic vol] 85.7 fL Normal 82.0-98.0 [facility] Comment on above: Performed By: #### L [id number] #### [facility] ([facility]) [address] [place] [address] PLATELETS (10*3/UL) IN BLOOD AUTOMATED COUNT 243 10*3/uL Normal 150-400 [facility] Comment on above: Performed By: #### L [id number] #### [facility] ([facility]) [address] [place] [address] RBC (Bld) [#/Vol] 4.28 10*6/uL Normal 3.80-5.00 [facility] Comment on above: Performed By: #### L [id number] #### [facility] ([facility]) [address] [place] [address] WBC (Bld) [#/Vol] 7.41 10*3/uL Normal 4.00-10.60 [facility] Comment on above: Performed By: #### L [id number] #### [facility] ([facility]) [address] [place] [address] CONSULTon 06-30-2024 CONSULT Cardiology Consult Note Reason for Consult: NSTEMI, transfer from [facility] HPI: Aby Madrigal, a 59 y.o. female patient, is transferred from [facility] for continuity of care. Past medical history includes: HTN History of TIA DMII HLD SURESH Overweight Patient reports that 3 days ago, she woke up in the mid of the night with indigestion, and a feeling fullness, but no pressure like chest pain. She presented to [facility], where she was found to be hypertensive. [...] Value Ventricular Rate 71 Atrial Rate 71 NM Interval 176 QRS DURATION 92 QT Interval 424 QTC CALCULATION(BAZETT) 460 P [place] 52 R-[place] 19 T Wave [place] 164 Impression Normal sinus rhythm Left ventricular hypertrophy with repolarization abnormality ( R in aVL , Capron product ) Abnormal ECG No previous ECGs available Lab Results Component Value Date TROPONINI 0.10 (H) 06/29/2024 No echocardiogram results found for the past 12 months No nuclear medicine results found for the past 12 months Relevant Imaging Results ECG 12 lead Normal sinu (more content not included)... Normal [facility] HPon 06-30-2024 HP H&P reviewed. The patient was examined and there are no changes to the H&P. 59 y.o. year old female with a PMHx significant for DM2, hypertension presents a direct mission from [facility] with a chief complaint of chest pain [...] to proceed. Signed, Yris Oakley MD PGY-4 [employer] Specialist Pager: [phone] [facility] POCT GLUCOSE METER UNSOLICIT ED RESULTSon 06-30-2024 Glucose [Mass/Vol] 170 mg/dL High 70-105 [facility] Comment on above: Order Comment: Waive d Testing in the ED is performed under the ED CLIA certificate #[id number]. Result Comment: [email or web address] Performed By: #### L [id number] #### [facility] ([facility]) [address] [place] [address] Glucose [Mass/Vol] 129 mg/dL High 70-105 [facility] Comment on above: Order Comment: Waive d Testing in the ED is performed under the ED CLIA certificate #[id number]. Result Comment: carolyn tcher Performed By: #### L [id number] #### [facility] ([facility]) [address] [place] [address] Glucose [Mass/Vol] 167 mg/dL High 70-105 [facility] Comment on above: Order Comment: Waive d Testing in the ED is performed under the ED CLIA certificate #[id number]. Result Comment: [email or web address] Performed By: #### L [id number] #### [facility] ([facility]) [address] [place] [address] TROPONIN Ion 06-30-2024 Troponin I.cardiac [Mass/Vol] 0.07 ng/mL High 0.00-0.04 [facility] Comment on above: Performed By: #### L [id number] #### [facility] ([facility]) [address] [place] [address] Troponin I.cardiac [Mass/Vol] 0.10 ng/mL High 0.00-0.04 [facility] Comment on above: Performed By: #### L [id number] #### [facility] ([facility]) [address] [place] [address] Troponin I.cardiac [Mass/Vol] 0.11 ng/mL Critically high 0.00-0.04 [facility] Comment on above: Result Comment: CEE CARR INITIAL CRITICAL HIGH; RESPUN AND RETESTED Performed By: #### L [id number] #### [facility] ([facility]) [address] [place] [address] 30on 06-29-2024 30 The patient is Moderately Stable - Low risk of patient condition declining or worsening The patient's goals for the shift include COMFORT The clinical goals for the shift include VSS Normal [facility] APTTon 06-29-2024 ACTIVATED PARTIAL THROMBOPLASTIN TIME IN PPP BY COAGULATION ASSAY 34.5 Seconds Normal 25.0-35.0 [facility] Comment on above: Order Comment: Basel ine aPTT before initiating heparin infusion. Result Comment: Clin ical significance of the APTT is questionable in the presence of heparin. Performed By: #### L [id number] #### [facility] ([facility]) [address] [place] [address] B-TYPE NATRIURETIC PEPTIDEon 06-29-2024 Natriuretic peptide B (Bld) [Mass/Vol] 222 pg/mL High 0-100 [facility] Comment on above: Performed By: #### L [id number] #### [facility] ([facility]) [address] [place] [address] CBC WITH AUTO DIFFERENTIALon 06-29-2024 Basophils (Bld) [#/Vol] 0.05 10*3/uL Normal 0.00-0.20 [facility] Comment on above: Performed By: #### L [id number] #### [facility] ([facility]) [address] [place] [address] Basophils/100 WBC (Bld) 0.6 % Normal 0.0-1.0 [facility] Comment on above: Performed By: #### L [id number] #### [facility] ([facility]) [address] [address] Eosinophils (Bld) [#/Vol] 0.18 10*3/uL Normal 0.00-0.50 [facility] Comment on above: Performed By: #### L [id number] #### [facility] ([facility]) [address] [address] Eosinophils/100 WBC (Bld) 2.1 % Normal 0.0-6.0 [facility] Comment on above: Performed By: #### L [id number] #### [facility] ([facility]) [address] [place] [address] Erythrocyte distribution width (RBC) [Ratio] 14.9 % Normal 11.5-15.0 [facility] Comment on above: Performed By: #### L [id number] #### [facility] ([facility]) [address] [place] [address] ERYTHROCYTE MEAN CORPUSCULAR HEMOGLOBIN CONCENTRATION (G/DL) BY AUTOMATED 32.9 g/dL Normal 32.0-35.0 [facility] Comment on above: Performed By: #### L [id number] #### [facility] ([facility]) [address] [place] [address] Hematocrit (Bld) [Volume fraction] 35.9 % Low 36.0-48.0 [facility] Comment on above: Performed By: #### L [id number] #### [facility] ([facility]) [address] [place] [address] Hemoglobin (Bld) [Mass/Vol] 11.8 g/dL Low 12.0-15.0 [facility] Comment on above: Performed By: #### L [id number] #### [facility] ([facility]) [address] [place] [address] Immature granulocytes (Bld) [#/Vol] 0.03 10*3/uL Normal 0.00-0.20 [facility] Comment on above: Performed By: #### L [id number] #### [facility] ([facility]) [address] [place] [address] Immature granulocytes/100 WBC (Bld) 0.3 % Normal 0.0-1.0 [facility] Comment on above: Performed By: #### L [id number] #### [facility] ([facility]) [address] [place] [address] Lymphocytes (Bld) [#/Vol] 2.02 10*3/uL Normal 1.20-4.00 [facility] Comment on above: Performed By: #### L [id number] #### [facility] ([facility]) [address] [place] [address] Lymphocytes/100 WBC (Bld) 23.5 % Normal 20.0-45.0 [facility] Comment on above: Performed By: #### L [id number] #### [facility] ([facility]) [address] [place] [address] MCH (RBC) [Entitic mass] 27.2 pg Normal 27.0-33.0 [facility] Comment on above: Performed By: #### L [id number] #### [facility] ([facility]) [address] [place] [address] MCV (RBC) [Entitic vol] 82.7 fL Normal 82.0-98.0 [facility] Comment on above: Performed By: #### L [id number] #### [facility] ([facility]) [address] [place] [address] Monocytes (Bld) [#/Vol] 0.56 10*3/uL Normal 0.10-1.00 [facility] Comment on above: Performed By: #### L [id number] #### [facility] ([facility]) [address] [place] [address] Monocytes/100 WBC (Bld) 6.5 % Normal 5.0-12.0 [facility] Comment on above: Performed By: #### L [id number] #### [facility] ([facility]) [address] [place] [address] Neutrophils (Bld) [#/Vol] 5.74 10*3/uL Normal 1.60-7.60 [facility] Comment on above: Performed By: #### L [id number] #### [facility] ([facility]) [address] [place] [address] Neutrophils/100 WBC (Bld) 67.0 % Normal 40.0-72.0 [facility] Comment on above: Performed By: #### L [id number] #### [facility] ([facility]) [address] [place] [address] NRBC (PER 100 WBCS) BY AUTOMATED COUNT 0.0 % Normal 0 [facility] Comment on above: Performed By: #### L [id number] #### [facility] ([facility]) [address] [place] [address] PLATELETS (10*3/UL) IN BLOOD AUTOMATED COUNT 233 10*3/uL Normal 150-400 [facility] Comment on above: Performed By: #### L [id number] #### [facility] ([facility]) [address] [place] [address] RBC (Bld) [#/Vol] 4.34 10*6/uL Normal 3.80-5.00 [facility] Comment on above: Performed By: #### L [id number] #### [facility] ([facility]) [address] [place] [address] WBC (Bld) [#/Vol] 8.58 10*3/uL Normal 4.00-10.60 [facility] Comment on above: Performed By: #### L [id number] #### [facility] ([facility]) [address] [place] [address] COMPREHENSIVE METABOLIC PANE Alec 06-29-2024 Albumin [Mass/Vol] 3.8 g/dL Normal 3.5-5.7 [facility] Comment on above: Performed By: #### L [id number] #### [facility] ([facility]) [address] [place] [address] ALP [Catalytic activity/Vol] 64 U/L Normal 34-104 [facility] Comment on above: Performed By: #### L [id number] #### [facility] ([facility]) [address] [place] [address] ALT [Catalytic activity/Vol] 35 U/L Normal 7-52 [facility] Comment on above: Performed By: #### L [id number] #### [facility] ([facility]) [address] [place] [address] Anion gap [Moles/Vol] 12 mmol/L Normal 7-20 [facility] Comment on above: Performed By: #### L [id number] #### [facility]) [address] [place] [address] AST [Catalytic activity/Vol] 21 U/L Normal 13-39 [facility] Comment on above: Performed By: #### L [id number] #### [facility] ([facility]) [address] [place] [address] Bilirubin [Mass/Vol] 0.4 mg/dL Normal 0.3-1.0 [facility] Comment on above: Performed By: #### L [id number] #### [facility] ([facility]) [address] [place] [address] Calcium [Mass/Vol] 8.5 mg/dL Low 8.6-10.3 [facility] Comment on above: Performed By: #### L [id number] #### [facility] ([facility]) [address] [place] [address] Chloride [Moles/Vol] 112 mmol/L High 98-107 [facility] Comment on above: Performed By: #### L [id number] #### [facility] ([facility]) [address] [place] [address] CO2 [Moles/Vol] 22 mmol/L Normal 21-31 [facility] Comment on above: Performed By: #### L [id number] #### [facility]) [address] [place] [address] Creatinine [Mass/Vol] 0.92 mg/dL Normal 0.60-1.20 [facility] Comment on above: Performed By: #### L [id number] #### [facility]) [address] [place] [address] GLOMERULAR FILTRATION RATE ML/MIN/1.73 SQ M.PREDICTED 71.3 mL/min/1.73m*2 Normal >60.0 [facility] Comment on above: Result Comment: [facility]???s estimated glomerular filtration rate (eGFR) will no [...] of individuals. Performed By: #### L [id number] #### [facility] ([facility]) [address] [place] [address] Glucose [Mass/Vol] 108 mg/dL High 70-100 [facility] Comment on above: Performed By: #### L [id number] #### [facility] ([facility]) [address] [place] [address] Potassium [Moles/Vol] 3.7 mmol/L Normal 3.5-5.1 [facility] Comment on above: Performed By: #### L [id number] #### [facility] ([facility]) [address] [place] [address] Protein [Mass/Vol] 6.1 g/dL Normal 6.0-8.3 [facility] Comment on above: Performed By: #### L [id number] #### [facility] ([facility]) [address] [place] [address] Sodium [Moles/Vol] 142 mmol/L Normal 136-145 [facility] Comment on above: Performed By: #### L [id number] #### [facility] ([facility]) [address] [place] [address] Urea nitrogen [Mass/Vol] 11 mg/dL Normal 7-25 [facility] Comment on above: Performed By: #### L [id number] #### [facility] ([facility]) [address] [place] [address] UREA NITROGEN/CREATININE (MASS RATIO) IN SER/PLAS 12.0 Normal [facility] Comment on above: Performed By: #### L [id number] #### [facility] ([facility]) [address] [facility] [place] [address] MAGNESIUMon 06-29-2024 Magnesium [Mass/Vol] 1.7 mg/dL Low 1.9-2.7 [facility] Comment on above: Performed By: #### L [id number] #### [facility] ([facility]) [address] [place] [address] PHOSPHORUSon 06-29-2024 Magnesium [Mass/Vol] 2.9 mg/dL Normal 2.5-5.0 [facility] Comment on above: Performed By: #### L [id number] #### [facility] ([facility]) [address] [place] [address] PROTIME-INRon 06-29-2024 INR IN PPP BY COAGULATION ASSAY 0.99 Normal 0.90-1.10 [facility] Comment on above: Result Comment: ACCC P [...] RANGE. CHEST 1995;108:[id number]. Performed By: #### L [id number] #### [facility] ([facility]) [address] [place] [address] PROTHROMBIN TIME (PT) IN PPP BY COAGULATION ASSAY 13.1 Seconds Normal 12.3-14.8 [facility] Comment on above: Performed By: #### L [id number] #### [facility] ([facility]) [address] [place] [address] TROPONIN Ion 06-29-2024 Troponin I.cardiac [Mass/Vol] 0.10 ng/mL High 0.00-0.04 [facility] Comment on above: Performed By: #### L [id number] #### [facility] ([facility]) [address] [place] [address] Office Visiton 06-21-2024 Follow-up visit [id number] Aby Madrigal S 1965 Provider Department Center 06/21/2024 GOMEZ KENDALL RIAZ [place] Family History Problem Relation Age of Onset Lung cancer Mother No Known Problems Father Lung cancer Sister Family Status - Relation Status Age at Mother Father Sister Level of Service:73217 NM OFFICE/OUTPATIENT ESTABLISHED MOD MDM 30 MIN Normal [facility] Office Visiton 05-26-2024 Follow-up visit [id number] Aby Madrigal S 1965 Provider Department Center 05/26/2024 BIJAN LAWLER RIAZ [place] Family History Problem Relation Age of Onset Lung cancer Mother No Known Problems Father Lung cancer Sister Family Status - Relation Status Age at Mother Father Sister Level of Service:95605 NM OFFICE/OUTPATIENT NEW MODERATE MDM 45 MINUTES Normal [facility] Outside Colonoscopyon 2022 Outside Colonoscopy [id number] 0CD:[address] [facility] Reminderson 11-27-2022 Reminders - From: Na Hayes LPN To: N - Clinical; Sent: 11/27/2022 12:46:10 EST Show up: 10/25/2032 07:00:00 EST Subject: colonoscopy recall Due Date/Time: 11/25/2032 07:00:00 EST Reminder/Recall Patient is due for screening colonoscopy 11/25/2032. Normal [facility] Lab Reportson 11-24-2022 Lab Reports [id number] 20 [id number] 0CD:[address] [facility] Covid-19 PCR ([facility])on 10-24 SARS-CoV-2 (COVID-19) RNA BECK+probe Ql (Unsp spec) Not detected Normal NOT DETECTED [facility] Comment on above: Result Comment: This test is not yet approved or cleared by the [place] FDA. When there are no FDA-approved or cleared tests available, and other criteria are met, FDA can make tests available under an emergency access mechanism called an Emergency Use Authorization (EUA). The EUA for this test is supported by the [place] of Health and Human Service's (HHS's) declaration [...] consistent with SARS-CoV-2. Performed By: #### [facility] #### [facility] [address] [place] [address] Dr. Rich Cutler Consent for Procedure/Surger yon 10-07-2022 Consent for Procedure/Surgery [id number] [facility] Ambulatory Visit Summaryon 1 12-06-2021 Ambulatory Visit Summary VALERYABY :1965 Visit Date:10/06/2022 Ambulatory Visit Instructions Your [...] for. Allergic conjunctivitis Anticoagulated Kidney stones Normal [facility] VC VENOUS REFLUX NINO LMTon 1 12-02-2021 VC VENOUS REFLUX NINO LMT Patient: ABY MADRIGAL Exam Date: 10/02/2022 : 1965 Gender:F Ordering : DR KENDRA MURILLO . Admission #: [id number] Family : Order #: [id number] CLICK HERE TO VIEW EXAM RADIOLOGY REPORT [...] chronic thrombus visualized Compressibility: Normal Flow: Normal [employer] Reporter: Dist/med calf 3.3mm with 0s reflux. Tech Note: Incompetent SFJ and GSV. Patent varicose vein mid/med calf 2.9mm with 0s reflux. Patent varicose vein prox/post calf 3.8mm with 0s reflux. Patent varicose vein dist/med thigh 3.8mm with 2.0s reflux. CONCLUSION: 1. Mild right and [id number] left great saphenous vein venous insufficiency with dilatation 2. Left saphenous popliteal junction reflux 3. Mild left anterior accessory saphenous vein venous insufficiency without dilatation 4. Small bilateral incompetent varicose veins Dictated by: Adelia Lezama MD on 10/02/2022 at 13:36 Approved by: Adelia Lezama MD on 10/02/2022 at 13:52 Normal [facility] ECHOCARDIO M/2D COMPLETEon 1 11-30-2021 ECHOCARDIO M/2D COMPLETE Patient: ABY MADRIGAL Exam Date: 09/30/2022 : 1965 Gender:F Ordering : DR KENDRA MURILLO . Admission #: [id number] Family : Order #: [id number] CLICK HERE TO VIEW EXAM ECHOCARDIOGRAM REPORT [...] M.D. on 09/30/2022 at 18:37 Normal [facility] BNPon 09-24-2022 Natriuretic peptide B (Bld) [Mass/Vol] 501.0 pg/mL Normal <=900.0 [facility] Comment on above: Performed By: #### C VDTBH #### [facility] [address] [place] [address] Dr. Rich Cutler CBC AUTO DIFFon 09-24-2022 BASO # 0.1 103/ul Normal 0.0-0.1 [facility] Comment on above: Performed By: #### C VDTBH #### [facility] [address] [place] [address] Dr. Rich Cutler Basophils/100 WBC (Bld) 0.8 % Normal 0.2-2.0 [facility] Comment on above: Performed By: #### C VDTBH #### [facility] [address] [place] [address] Dr. Rich Cutler EO # 0.3 103/ul Normal 0.0-0.7 [facility] Comment on above: Performed By: #### C VDTBH #### [facility] [address] [place] [address] Dr. Rich Cutler Eosinophils/100 WBC (Bld) 3.4 % Normal 0.9-7.0 [facility] Comment on above: Performed By: #### C VDTBH #### [facility] [address] [place] [address] Dr. Rich Cutler Erythrocyte distribution width (RBC) [Ratio] 13.3 % Normal 11.0-15.0 [facility] Comment on above: Performed By: #### C VDTBH #### [facility] [address] [place] [address] Dr. Rich Cutler Hematocrit (Bld) [Volume fraction] 40.5 % Normal 36.0-48.0 [facility] Comment on above: Performed By: #### C VDTBH #### [facility] [address] [place] [address] Dr. Rich Cutler Hemoglobin (Bld) [Mass/Vol] 13.1 g/dL Normal 12.0-16.0 [facility] Comment on above: Performed By: #### C VDTBH #### [facility] [address] [place] [address] Dr. Rich Cutler IG # 0.02 10e3/ul Normal 0.00-0.03 [facility] Comment on above: Performed By: #### C VDTBH #### [facility] [address] [place] [address] Dr. Rich Cutler IG % 0.3 % Normal 0.0-0.5 [facility] Comment on above: Performed By: #### C VDTBH #### [facility] [address] [place] [address] Dr. Rich Cutler LYMPH # 2.7 103/ul Normal 1.2-3.8 [facility] Comment on above: Performed By: #### C VDTBH #### [facility] [address] [place] [address] Dr. Rich Cutler Lymphocytes/100 WBC (Bld) 35.4 % Normal 20.5-60.0 [facility] Comment on above: Performed By: #### C VDTBH #### [facility] [address] [place] [address] Dr. Rich Cutler MANUAL DIFF REQ NO Normal [facility] Comment on above: Performed By: #### C VDTBH #### [facility] [address] [place] [address] Dr. Rich Cutler MCH (RBC) [Entitic mass] 28.2 pg Normal 26.7-34.0 [facility] Comment on above: Performed By: #### C VDTBH #### [facility] [address] [place] [address] Dr. Rich Cutler MCHC (RBC) [Mass/Vol] 32.3 g/dL Normal 29.9-35.2 [facility] Comment on above: Performed By: #### C VDTBH #### [facility] [address] [place] [address] Dr. Rich Cutler MCV (RBC) [Entitic vol] 87.3 fL Normal 81.0-99.0 [facility] Comment on above: Performed By: #### C VDTBH #### [facility] [address] [place] [address] Dr. Rich Cutler MONO # 0.5 103/ul Normal 0.3-0.8 [facility] Comment on above: Performed By: #### C VDTBH #### [facility] [address] [place] [address] Dr. Rich Cutler Monocytes/100 WBC (Bld) 6.5 % Normal 1.7-12.0 [facility] Comment on above: Performed By: #### C VDTBH #### [facility] [address] [place] [address] Dr. Rich Cutler NEUT # 4.1 103/ul Normal 1.4-6.5 [facility] Comment on above: Performed By: #### C VDTBH #### [facility] [address] [place] [address] Dr. Rich Cutler Neutrophils/100 WBC (Bld) 53.6 % Normal 43.0-75.0 [facility] Comment on above: Performed By: #### C VDTBH #### [facility] [address] [place] [address] Dr. Rich Cutler Platelet mean volume (Bld) [Entitic vol] 10.3 fL Normal 9.5-13.5 [facility] Comment on above: Performed By: #### C VDTBH #### [facility] [address] [place] [address] Dr. Rich Cutler PLT 283 103/ul Normal 150-450 [facility] Comment on above: Performed By: #### C VDTBH #### [facility] [address] [place] [address] Dr. Rich Cutler RBC 4.64 106/ul Normal 4.20-5.40 [facility] Comment on above: Performed By: #### C VDTBH #### [facility] [address] [place] [address] Dr. Rich Cutler WBC 7.6 103/ul Normal 4.0-11.0 [facility] Comment on above: Performed By: #### C VDTBH #### [facility] [address] [place] [address] Dr. Rich Cutler INSULINon 09-24-2022 Insulin 15.1 uIU/mL Normal 2.6-24.9 [facility] Comment on above: Performed By: #### C VDTBH #### [facility] [address] [place] [address] Dr. Rich Cutler PROF 14(COMP METB)on 022 Albumin [Mass/Vol] 3.5 g/dL Normal 3.4-5.0 [facility] Comment on above: Performed By: #### C VDTBH #### [facility] [address] [place] [address] Dr. Rich Cutler Albumin/Globulin [Mass ratio] 1.0 {ratio} Normal [facility] Comment on above: Performed By: #### C VDTBH #### [facility] [address] [place] [address] Dr. Rich Cutler ALP [Catalytic activity/Vol] 91 U/L Normal 46-116 [facility] Comment on above: Performed By: #### C VDTBH #### [facility] [address] [place] [address] Dr. Rich Cutler ALT [Catalytic activity/Vol] 47 U/L Normal 14-59 [facility] Comment on above: Performed By: #### C VDTBH #### [facility] [address] [place] [address] Dr. Rich Cutler Anion gap [Moles/Vol] 11.7 mmol/L Normal [facility] Comment on above: Performed By: #### C VDTBH #### [facility] [address] [place] [address] Dr. Rich Cutler AST [Catalytic activity/Vol] 24 U/L Normal 15-37 [facility] Comment on above: Performed By: #### C VDTBH #### [facility] [address] [address] [address] Rich Cutler Bilirubin [Mass/Vol] 0.2 mg/dL Normal 0.2-1.0 [facility] Comment on above: Performed By: #### C VDTBH #### [facility] [address] [address] [address] Rich Cutler Calcium [Mass/Vol] 8.9 mg/dL Normal 8.5-10.1 [facility] Comment on above: Performed By: #### C VDTBH #### [facility] [address] [address] [address] Rich Cutler Chloride [Moles/Vol] 105 mmol/L Normal 98-107 [facility] Comment on above: Performed By: #### C VDTBH #### [facility] [address] [address] [address] Rich Cutler CO2 [Moles/Vol] 28.1 mmol/L Normal 21.0-32.0 [facility] Comment on above: Performed By: #### C VDTBH #### [facility] [address] [address] [address] Rich Cutler Creatinine [Mass/Vol] 1.13 mg/dL Critically high 0.55-1.02 [facility] Comment on above: Performed By: #### C VDTBH #### [facility] [address] [address] [address] Rich Cutler EGFR-AF BOLIVIAN 60 mL/min/1.73m2 Normal >=60 [facility] Comment on above: Performed By: #### C VDTBH #### [facility] [address] [address] [address] Rich Cutler EGFR-NON AF BOLIVIAN 49 mL/min/1.73m2 Critically low >=60 [facility] Comment on above: Performed By: #### C VDTBH #### [facility] [address] [address] [address] Rich Cutler Globulin (S) [Mass/Vol] 3.5 g/dL Normal [facility] Comment on above: Performed By: #### C VDTBH #### [facility] [address] [address] [address] Rich Cutler Glucose [Mass/Vol] 119 mg/dL Critically high 74-106 [facility] Comment on above: Performed By: #### C VDTBH #### [facility] [address] [place] [address] Dr. Rich Cutler Potassium [Moles/Vol] 3.8 mmol/L Normal 3.5-5.1 [facility] Comment on above: Performed By: #### C VDTBH #### [facility] [address] [place] [address] Dr. Rich Cutler Protein [Mass/Vol] 7.0 g/dL Normal 6.4-8.2 [facility] Comment on above: Performed By: #### C VDTBH #### [facility] [address] [place] [address] Dr. Rich Cutler Sodium [Moles/Vol] 141 mmol/L Normal 136-145 [facility] Comment on above: Performed By: #### C VDTBH #### [facility] [address] [place] [address] Dr. Rich Cutler Urea nitrogen [Mass/Vol] 16.0 mg/dL Normal 7.0-18.0 [facility] Comment on above: Performed By: #### C VDTBH #### [facility] [address] [place] [address] Dr. Rich Cutler Urea nitrogen/Creatinine [Mass ratio] 14.2 mg/mg Normal [facility] Comment on above: Performed By: #### C VDTBH #### [facility] [address] [place] [address] Dr. Rich Cutler TROPONIN, HIGH SENSITIVITYon 09-24-2022 HSTROP 10.6 pg/mL Normal 4.0-51.3 [facility] Comment on above: Result Comment: CUT- OFF POINTS HAVE BEEN ESTABLISHED BASED ON THE FOURTH UNIVERSAL DEFINITIONS OF MYOCARDIAL INFARCTION. THE UPPER REFERENCE LIMIT (URL) OF TROPONIN, DEFINED THE 99TH PERCENTILE OF cTnI DISTRIBUTION IN A REFERENCE POPULATION, HAS BEEN CONFIRMED THE DECISION THRESHOLD FOR [place] DIAGNOSIS. Performed By: #### C VDTB #### [facility] [address] [place] [address] Dr. Rich Cutler XR CHEST 1 Von [...] UMM HUMPHRIES Date: 2022-09-24 04:08 Normal [facility] CBC AUTO DIFFon 09-23-2022 BASO # 0.1 103/ul Normal 0.0-0.1 [facility] Comment on above: Performed By: #### C BC #### [facility] [address] [place] [address] Dr. Rich Cutler Basophils/100 WBC (Bld) 0.8 % Normal 0.2-2.0 [facility] Comment on above: Performed By: #### C BC #### [facility] [address] [place] [address] Dr. Rich Cutler EO # 0.2 103/ul Normal 0.0-0.7 [facility] Comment on above: Performed By: #### C BC #### [facility] [address] [place] [address] Dr. Rich Cutler Eosinophils/100 WBC (Bld) 3.5 % Normal 0.9-7.0 [facility] Comment on above: Performed By: #### C BC #### [facility] [address] [place] [address] Dr. Rich Cutler Erythrocyte distribution width (RBC) [Ratio] 13.4 % Normal 11.0-15.0 [facility] Comment on above: Performed By: #### C BC #### [facility] [address] [place] [address] Dr. Rihc Cutler Hematocrit (Bld) [Volume fraction] 42.3 % Normal 36.0-48.0 [facility] Comment on above: Performed By: #### C BC #### [facility] [address] [place] [address] Dr. Rich Cutler Hemoglobin (Bld) [Mass/Vol] 13.4 g/dL Normal 12.0-16.0 [facility] Comment on above: Performed By: #### C BC #### [facility] [address] [place] [address] Dr. Rich Cutler IG # 0.03 10e3/ul Normal 0.00-0.03 [facility] Comment on above: Performed By: #### C BC #### [facility] [address] [place] [address] Dr. Rich Cutler IG % 0.5 % Normal 0.0-0.5 [facility] Comment on above: Performed By: #### C BC #### [facility] [address] [place] [address] Dr. Rich Cutler LYMPH # 2.9 103/ul Normal 1.2-3.8 [facility] Comment on above: Performed By: #### C BC #### [facility] [address] [place] [address] Dr. Rich Cutler Lymphocytes/100 WBC (Bld) 44.0 % Normal 20.5-60.0 [facility] Comment on above: Performed By: #### C BC #### [facility] [address] [place] [address] Dr. Rich Cutler MANUAL DIFF REQ NO Normal [facility] Comment on above: Performed By: #### C BC #### [facility] [address] [place] [address] Dr. Rich Cutler MCH (RBC) [Entitic mass] 28.4 pg Normal 26.7-34.0 [facility] Comment on above: Performed By: #### C BC #### [facility] [address] [place] [address] Dr. Rich Cutler MCHC (RBC) [Mass/Vol] 31.7 g/dL Normal 29.9-35.2 [facility] Comment on above: Performed By: #### C BC #### [facility] [address] [place] [address] Dr. Rich Cutler MCV (RBC) [Entitic vol] 89.6 fL Normal 81.0-99.0 [facility] Comment on above: Performed By: #### C BC #### [facility] [address] [place] [address] Dr. Rich Cutler MONO # 0.4 103/ul Normal 0.3-0.8 [facility] Comment on above: Performed By: #### C BC #### [facility] [address] [place] [address] Dr. Rich Cutler Monocytes/100 WBC (Bld) 6.6 % Normal 1.7-12.0 [facility] Comment on above: Performed By: #### C BC #### [facility] [address] [place] [address] Dr. Rich Cutler NEUT # 2.9 103/ul Normal 1.4-6.5 [facility] Comment on above: Performed By: #### C BC #### [facility] [address] [place] [address] Dr. Rich Cutler Neutrophils/100 WBC (Bld) 44.6 % Normal 43.0-75.0 [facility] Comment on above: Performed By: #### C BC #### [facility] [address] [place] [address] Dr. Rich Cutler Platelet mean volume (Bld) [Entitic vol] 11.0 fL Normal 9.5-13.5 [facility] Comment on above: Performed By: #### C BC #### [facility] [address] [place] [address] Dr. Rich Cutler PLT 272 103/ul Normal 150-450 [facility] Comment on above: Performed By: #### C BC #### [facility] [address] [place] [address] Dr. Rich Cutler RBC 4.72 106/ul Normal 4.20-5.40 [facility] Comment on above: Performed By: #### C BC #### [facility] [address] [place] [address] Dr. Rich Cutler WBC 6.5 103/ul Normal 4.0-11.0 [facility] Comment on above: Performed By: #### C BC #### [facility] [address] [place] [address] Dr. Rich Cutler FREE THYROXINE INDEX T7on FTI 2.16 Normal 1.30-4.50 [facility] Comment on above: Performed By: #### L IPID, TSH, T7, CMP #### [facility] [address] [place] [address] Dr. Rich Cutler T3U 30.0 % Normal 30.0-39.0 [facility] Comment on above: Performed By: #### L IPID, TSH, T7, CMP #### [facility] [address] [place] [address] Dr. Rich Cutler T4 [Mass/Vol] 7.20 ug/dL Normal 4.80-13.90 [facility] Comment on above: Performed By: #### L IPID, TSH, T7, CMP #### [facility] [address] [place] [address] Dr. Rich Cutler GLYCOHEMOGLOBIN A1Con 2021 ADA RECOMMENDATION SEE BELOW Normal [facility] Comment on above: Result Comment: ADA RECOMMENDED LIMIT 4.0 - 6.0 ADA THERAPEUTIC TARGET < 7.0 ACTION SUGGESTED > 7.0 Performed By: #### A 1C #### [facility] [address] [place] [address] Dr. Rich Cutler Glucose [Mass/Vol] 128 mg/dL Normal [facility] Comment on above: Performed By: #### A 1C #### [facility] [address] [place] [address] Dr. Rich Cutler HbA1c (Bld) [Mass fraction] 6.1 % Normal 4.5-6.2 [facility] Comment on above: Performed By: #### A 1C #### [facility] [address] [address] [address] Rich Cutler IRONon 09-23-2022 Iron [Mass/Vol] 64.0 ug/dL Normal 50.0-170.0 [facility] Comment on above: Performed By: #### C VDTBH #### [facility] [address] [address] [address] Rich Cutler LIPID PROFILEon 09-23-2022 CHOL-HDL RATIO NORM SEE BELOW Normal [facility] Comment on above: Result Comment: 3.3 - 4.4 LOW RISK 4.4 - 7.1 AVERAGE RISK 7.1 - 11.0 MODERATE RISK >11.0 HIGH RISK Performed By: #### L IPID, TSH, T7, CMP #### [facility] [address] [address] [address] Rich Cutler Cholesterol [Mass/Vol] 237 mg/dL Critically high <=200 [facility] Comment on above: Performed By: #### L IPID, TSH, T7, CMP #### [facility] [address] [address] [address] Rich Cutler Cholesterol in HDL [Mass/Vol] 44 mg/dL Normal 40-60 [facility] Comment on above: Performed By: #### L IPID, TSH, T7, CMP #### [facility] [address] [address] [address] Rich Cutler Cholesterol in LDL [Mass/Vol] 172.2 mg/dL Normal [facility] Comment on above: Performed By: #### L IPID, TSH, T7, CMP #### [facility] [address] [address] [address] Rich Cutler Cholesterol.total/C holesterol in HDL [Mass ratio] 5.4 {ratio} Normal [facility] Comment on above: Performed By: #### L IPID, TSH, T7, CMP #### [facility] [address] [address] [address] Rich Cutler HDL NORMAL > or = 60 mg/dl - LO W CARDIOVASCULAR RISK <40 mg/dl - HIGH CARDIOVASCULAR RISK Normal [facility] Comment on above: Performed By: #### L IPID, TSH, T7, CMP #### [facility] [address] [address] [address] Rich Cutler LDL CALC NORMAL SEE BELOW Normal [facility] Comment on above: Result Comment: <100 mg/dl OPTIMAL 100 - 129 mg/dl NEAR OR ABOVE OPTIMAL 130 - 159 mg/dl BORDERLINE HIGH 160 - 189 mg/dl HIGH >190 mg/dl VERY HIGH Performed By: #### L IPID, TSH, T7, CMP #### [facility] [address] [address] [address] Rich Cutler Triglyceride [Mass/Vol] 104 mg/dL Normal <=150 [facility] Comment on above: Performed By: #### L IPID, TSH, T7, CMP #### [facility] [address] [address] [address] Rich Cutler VLDL CALC 20.8 mg/dL Normal [facility] Comment on above: Performed By: #### L IPID, TSH, T7, CMP #### [facility] [address] [place] [address] Dr. Rich Cutler PROF 14(COMP METB)on 022 Albumin [Mass/Vol] 3.5 g/dL Normal 3.4-5.0 [facility] Comment on above: Performed By: #### L IPID, TSH, T7, CMP #### [facility] [address] [address] [address] Rich Cutler Albumin/Globulin [Mass ratio] 0.9 {ratio} Normal [facility] Comment on above: Performed By: #### L IPID, TSH, T7, CMP #### [facility] [address] [address] [address] Rich Cutler ALP [Catalytic activity/Vol] 93 U/L Normal 46-116 [facility] Comment on above: Performed By: #### L IPID, TSH, T7, CMP #### [facility] [address] [address] [address] Rich Cutler ALT [Catalytic activity/Vol] 44 U/L Normal 14-59 [facility] Comment on above: Performed By: #### L IPID, TSH, T7, CMP #### [facility] [address] [address] [address] Rich Cutler Anion gap [Moles/Vol] 8.5 mmol/L Normal [facility] Comment on above: Performed By: #### L IPID, TSH, T7, CMP #### [facility] [address] [place] [address] Dr. Rich Cutler AST [Catalytic activity/Vol] 26 U/L Normal 15-37 [facility] Comment on above: Performed By: #### L IPID, TSH, T7, CMP #### [facility] [address] [place] [address] Dr. Rich Cutler Bilirubin [Mass/Vol] 0.3 mg/dL Normal 0.2-1.0 [facility] Comment on above: Performed By: #### L IPID, TSH, T7, CMP #### [facility] [address] [place] [address] Dr. Rich Cutler Calcium [Mass/Vol] 9.0 mg/dL Normal 8.5-10.1 [facility] Comment on above: Performed By: #### L IPID, TSH, T7, CMP #### [facility] [address] [place] [address] Dr. Rich Cutler Chloride [Moles/Vol] 106 mmol/L Normal 98-107 [facility] Comment on above: Performed By: #### L IPID, TSH, T7, CMP #### [facility] [address] [place] [address] Dr. Rich Cutler CO2 [Moles/Vol] 31.0 mmol/L Normal 21.0-32.0 [facility] Comment on above: Performed By: #### L IPID, TSH, T7, CMP #### [facility] [address] [place] [address] Dr. Rich Cutler Creatinine [Mass/Vol] 1.11 mg/dL Critically high 0.55-1.02 [facility] Comment on above: Performed By: #### L IPID, TSH, T7, CMP #### [facility] [address] [place] [address] Dr. Rich Cutler EGFR-AF BOLIVIAN >60 Normal >=60 [facility] Comment on above: Performed By: #### L IPID, TSH, T7, CMP #### [facility] [address] [place] [address] Dr. Rich Cutler EGFR-NON AF BOLIVIAN 50 mL/min/1.73m2 Critically low >=60 [facility] Comment on above: Performed By: #### L IPID, TSH, T7, CMP #### [facility] [address] [place] [address] Dr. Rich Cutler Globulin (S) [Mass/Vol] 3.7 g/dL Normal [facility] Comment on above: Performed By: #### L IPID, TSH, T7, CMP #### [facility] [address] [place] [address] Dr. Rich Cutler Glucose [Mass/Vol] 121 mg/dL Critically high 74-[facility] Comment on above: Performed By: #### L IPID, TSH, T7, CMP #### [facility] [address] [place] [address] Dr. Rich Cutler Potassium [Moles/Vol] 4.5 mmol/L Normal 3.5-5.1 [facility] Comment on above: Performed By: #### L IPID, TSH, T7, CMP #### [facility] [address] [place] [address] Dr. Rich Cutler Protein [Mass/Vol] 7.2 g/dL Normal 6.4-8.2 [facility] Comment on above: Performed By: #### L IPID, TSH, T7, CMP #### [facility] [address] [place] [address] Dr. Rich Cutler Sodium [Moles/Vol] 141 mmol/L Normal 136-145 [facility] Comment on above: Performed By: #### L IPID, TSH, T7, CMP #### [facility] [address] [place] [address] Dr. Rich Cutler Urea nitrogen [Mass/Vol] 16.0 mg/dL Normal 7.0-18.0 [facility] Comment on above: Performed By: #### L IPID, TSH, T7, CMP #### [facility] [address] [address] [address] Rich Cutler Urea nitrogen/Creatinine [Mass ratio] 14.4 mg/mg Normal [facility] Comment on above: Performed By: #### L IPID, TSH, T7, CMP #### [facility] [address] [address] [address] Rich Cutler TSHon 09-23-2022 TSH 3.915 uIU/mL Critically high 0.358-3.740 [facility] Comment on above: Performed By: #### L IPID, TSH, T7, CMP #### [facility] [address] [address] [address] Rich Cutler Physician Referralon 022 Physician Referral [phone] 00 [id number] [facility] Lipid Panelon 10-07-2021 Cholesterol [Mass/Vol] 205 mg/dL High 140-200 [facility] Comment on above: Result Comment: Chol less than 200 mg/dl low risk Chol 201-239 mg/dl borderline risk Chol 240 mg/dl and greater high risk Performed By: #### L IPID, [id number], TSH3 wRFLX #### [facility] [address] [id number] [place] Cholesterol in HDL [Mass/Vol] 25 mg/dL Low 35-85 [facility] Comment on above: Result Comment: HDL CHOL ATP-III CLASSIFICATION Cardiovascular Risk HDL > or equal to 60 mg/dL LOW HDL < 40 mg/dL HIGH Performed By: #### L IPID, [id number], TSH3 wRFLX #### [facility] [address] [place] [address] [place] Cholesterol.total/C holesterol in HDL [Mass ratio] 8.2 {ratio} Normal <5.0 [facility] Comment on above: Performed By: #### L IPID, [id number], TSH3 wRFLX #### [facility] [address] LDL Cholesterol,Calcula coby 160 mg/dL High 0-100 [facility] Comment on above: Result Comment: LDL ATP III CLASSIFICATION LDL less than 100 mg/dL Optimal LDL 100-129 mg/dL Near or above optimal LDL 130-159 mg/dL Borderline high LDL 160-189 mg/dL High LDL greater than 189 mg/dL Very high Performed By: #### L IPID, [id number], TSH3 wRFLX #### [facility] [address] Triglyceride w/Reflex 100 mg/dL Normal 35-149 [facility] Comment on above: Result Comment: TRIG ATP III CLASSIFICATION TRIG less than 150 mg/dL Normal TRIG 150-199 mg/dL Borderline high TRIG 200-500 mg/dL High TRIG greater than 500 mg/dL Very high Standard traceable to the Center for Disease Conrtrol and Prevention (CDC) test method. Performed By: #### L IPID, [id number], TSH3 wRFLX #### [facility] [address] [place] [address] VLDL CHOLESTEROL 20 mg/dL Normal [facility] Comment on above: Performed By: #### L IPID, [id number], TSH3 wRFLX #### [facility] [address] [place] [address] Thyroid Stim Hormone w/Rflxo n 10-07-2021 Thyroid Stim Hormone w/Rflx 3.27 u[iU]/mL Normal 0.45-5.33 [facility] Comment on above: Performed By: #### L IPID, [id number], TSH3 wRFLX #### [facility] [address] [place] [address] Vitamin D 25 Hydroxy Totalon 10-07-2021 Vitamin D 25 Hydroxy Total 26.5 ng/mL Low 30-100 [facility] Comment on above: Result Comment: JACKELINE MIN D STATUS 25(OH)VITAMIN D RANGE (ng/mL) Deficient <20 Insufficient 20 to <30 Sufficient 30 to 100 Reference: Lanny MF,Gino WILLIAMSON, Dyan VALENZUELA, et al. Evaluation,treatment, and prevention of vitamin D deficiency; an Endocrine Society clinical practice guideline. JCEM. 2011 May; 96(7):1911-30. PERFORMED BY: [facility] [address] [place] [address] PATHOLOGIST SKI LIFT OPERATOR SILVESTRE SCHULER M.D. Performed By: #### L IPID, [id number], TSH3 wRFLX #### [facility] [address] [id number] [facility] Vital Signs Date Time Vital Sign Value Performing Clinician Faci lity 10-06-2022 15:36-0500 Blood Pressure Location [facility] 10-06-2022 15:36-0500 Diastolic blood pressure 86 mm[Hg] Umm NILL [facility] 10-06-2022 15:36-0500 Heart rate 72 /min Umm NILL [facility] 10-06-2022 15:36-0500 Respiratory rate 16 /min Umm N[facility] 10-06-2022 15:36-0500 Systolic blood pressure 126 mm[Hg] Umm [facility] Encounters Encounter Date Encounter Type Care Provider Facility Start: 07-18-2024 ambulatory [facility] Start: 07-18-2024 End: 07-18-2024 Emergency department patient visit HERMINIA LI [facility] Start: 07-18-2024 End: 07-18-2024 ambulatory [facility] Start: 07-11-2024 Evaluation and manag ement of inpatient [facility] Start: 07-11-2024 Evaluation and manag ement of inpatient [facility] Start: 07-11-2024 Emergency department patient visit FEDERICA ANDERSON [facility] Start: 07-11-2024 End: 07-12-2024 Evaluation and management of inpatient JOSE BETANCUR [facility] Start: 07-10-2024 End: 07-10-2024 ambulatory [facility] Start: 06-30-2024 Evaluation and manag ement of inpatient [facility] Start: 06-30-2024 Evaluation and manag ement of inpatient [facility] Start: 06-29-2024 End: 07-01-2024 Evaluation and management of inpatient KENDRA MURILLO [facility] Start: 06-21-2024 End: 06-21-2024 ambulatory GOMEZ CHANGMONA [facility] Start: 05-26-2024 End: 05-26-2024 ambulatory [facility] Start: 11-26-2022 Encounter for preprocedural laboratory examination DR UMM MARTÍNEZ . [facility] Start: 11-25-2022 End: 11-26-2022 ambulatory Umm MARTÍNEZ Facility:CD:[id number] Start: 11-20-2022 End: 11-21-[address] UMM MARTÍNEZ . Facility:[facility] Start: 11-20-2022 End: 11-21-2022 Encounter for preprocedural laboratory examination DR UMM MARTÍNEZ . Facility:[facility] Start: 10-06-2022 End: 10-07-2022 ambulatory Umm MARTÍNEZ Facility:[facility] Start: 10-06-2022 End: 10-06-2022 Patient encounter procedure Umm MARTÍNEZ [facility] Start: 10-02-2022 End: 10-03-[address] KENDRA MURILLO . Facility:[facility] Start: 09-30-2022 End: 10-01-[address] KENDRA MURILLO . Facility:[facility] Start: 09-28-2022 Encounter for genera l adult medical examination without abnormal findings DR KENDRA MURILLO . [facility] Start: 09-24-2022 End: 09-24-2022 ambulatory [...] mRNA BNT-162b2 vax Umm NILL [facility] 03-11-2021 SARS-CoV-2 (COVID-19 ) mRNA BNT-162b2 vax Umm NILL [facility] Payers Date Payer Category Payer Medicaid [id number] 1965 Unknown [id number] 2.16.8 [id number] 1965 Unknown [id number] 2.16.8 [id number] 1965 Unknown [id number] 2.16.84 [id number] 1965 Unknown [id number] 2.16.84 [id number] 1964 Unknown [id number] 2.16.84 [id number] 1964 Unknown [id number] 2.16.84 [id number] 1964 Unknown [id number] 2.16.84 [id number] 1964 Unknown [id number] 2.16.84 [id number] 1964 Unknown [id number] 2.16.84 [id number] 1960 Self-pay [id number] 1960 Unknown [id number] Social History Date Type Detail Facility Start: 10-06-2022 Tobacco smoking status Ex-smoker (fi nding) [facility] Tobacco smoking status Never [facility] Sex Assigned At Female [facility] Functional Status Date Assessment Result Facility 10-06-2022 Functional Status N/A [facility] Clinical Notes 10-11-2022 to 07-18-2024 Note Date & Type Note Facility 07-18-2024 Note REASON FOR VISIT + H PI: Aby Madrigal is a 59 y.o. female with CAD (PCI of LAD Jun 2024), HTN, TIA, panic attacks, SURESH, GERD, T2DM, and dyslipidemia who is being seen today for initial consultation at the request of Meseret Mac MD for evaluation of left adrenal mass. The patient's primary care provider is Kendra Murillo MD. She is accompanied by her son. Clinical History Summary: - Pertinent Family/Social History: 45+ pack yr smoking hx, quit age 57. Brother and sister with HTN (dx as adults). No known fam hx of early CAD. - dx with HTN age 49, initially controlled with metoprolol - CT A/P Jun 2019 in [place], [place] performed for abd pain, incidentally detected left adrenal mass 3.5 cm - March 2024: metoprolol switched to Coreg and pt also started on clonidine as BP was rising. - April 2024: hospitalized w/ SBP in 200s tx w/ IV nicardipine), she was discharged on Lasix, clonidine, Carvedilol and losartan. - Renal Doppler U/S Jun 2024: Elevated velocities of both renal arteries, reflecting significant renal artery stenosis bilaterally, suspected over 60% reduction of the left renal artery, less than 60% right renal artery, no hydronephrosis - Jun 2024: was on metoprolol + clonidine, however BP uncontrolled clonidine increased from 0.1 to 0.2 mg BID and losartan added on. Then in Jun 30 went to hospital w/ BP in 190s/60s. She was then hospitalized on Jul 12 for CP and HTNsive urgency --> spironolactone and Imdur were added to her regimen. Lab work showed K of 3.4. Aldosterone was 4.9, renin undetectable. Jul 18: pt went to ED for hypotension while on regimen of Coreg+ clonidine + spironolactone + losartan + Lasix. I am seeing pt today after she went to the ED with dizziness and lightheadedness while on regimen as above. She is accompanied by her son, feeling better after going to the ED. Her BP in the office is 126/70. She denies history of bone fractures, flank bruising. She chronically has easy bruising from being on antiplatelet agents. She denies any significant weight changes. REVIEW OF SYSTEMS Review of Systems Past Medical/Surgical History: Past Medical History: Diagnosis Date Abnormal ECG Diabetes mellitus ([facility]) Hyperlipidemia Hypertension Obstructive sleep apnea Panic attacks Stroke ([facility]) Past Surgical History: Procedure Laterality Date CEREBRAL ANGIOGRAM CHOLECYSTECTOMY HYSTERECTOMY TUBAL LIGATION Social History /Family History: Social History Tobacco Use Smoking status: Former Packs/day: 1.00 Years: 45.00 Additional pack years: 0.00 Total pack years: 45.00 Types: Cigarettes Quit date: 2021 Years since quittin.6 Smokeless tobacco: Never Substance Use Topics Alcohol use: Not Currently Comment: Used to drink a lot on the weekend reports that she quit smoking about 2 years ago. Her smoking use included cigarettes. She has a 45.00 pack-year smoking history. She has never used smokeless tobacco. She reports that she does not currently use alcohol. She reports that she does not use drugs. Family History Problem Relation Name Age of Onset Lung cancer Mother No Known Problems Father Lung cancer Sister Medications Current Outpatient Medications: aspirin 81 mg EC tablet, Take 81 mg by mouth in the morning., Disp: , Rfl: carvedilol (Coreg) 25 mg tablet, Take 1 tablet (25 mg) by mouth with breakfast and with evening meal., Disp: 180 tablet, Rfl: 3 cloNIDine (Catapres) 0.1 mg tablet, Take 1 tablet (0.1 mg) by mouth two times daily., Disp: 60 tablet, Rfl: 0 clopidogrel (Plavix) 75 mg tablet, Take 1 tablet (75 mg) by mouth in the morning., Disp: 90 tablet, Rfl: 3 isosorbide mononitrate ER (Imdur) 60 mg 24 hr tablet, Take 1 tablet (60 mg) by mouth in the morning for 98 doses. Do not crush or chew., Disp: 30 tablet, Rfl: 3 Lasix 20 mg tablet, Take 20 mg by mouth in the morning., Disp: , Rfl: LORazepam (Ativan) 0.5 mg tablet, 1 to 2 tablets Orally QID PRN for 30 days, Disp: , Rfl: losartan (Cozaar) 100 mg tablet, Take 1 tablet (100 mg) by mouth in the morning., Disp: 90 tablet, Rfl: 3 metFORMIN (Glucophage) 500 mg tablet, Take 500 mg by mouth with breakfast and with evening meal., Disp: , Rfl: Protonix 40 mg EC tablet, Take 40 mg by mouth if needed each day., Disp: , Rfl: QUEtiapine (SEROquel) 25 mg tablet, Take 50 mg by mouth at bedtime., Disp: , Rfl: rosuvastatin (Crestor) 40 mg tablet, Take 1 tablet (40 mg) by mouth in the morning., Disp: 30 tablet, Rfl: 0 sennosides-docusate sodium (Mikala-Colace) 8.6-50 mg tablet, Take 1 tablet by mouth if needed each day for constipation., Disp: 30 tablet, Rfl: 0 spironolactone (Aldactone) 25 mg tablet, Take 1 tablet (25 mg) by mouth in the morning for 98 doses. Do not start before July 13, 2024., Disp: 30 tablet, Rfl: 3 Current Outpatient Medications: aspirin 81 mg EC tablet, Take 81 mg by mouth in the morning., Disp: , Rfl: carvedilol (C (more content not included)... 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 Resides at home alone. Discharge plan is home. [facility] 07-18-2024 Note Patient sent to ED f or hypotension and dizziness/lightheadedness [facility] 07-12-2024 Note Hospital Medicine Discharge Summary Final Discharge Diagnosis: NSTEMI Admission Diagnosis: Hypokalemia [E87.6] NSTEMI (non-ST elevated myocardial infarction) (CMS/HCC) [I21.4] Hypertensive urgency [I16.0] Adenoma of left adrenal gland [D35.02] Resistant hypertension [I1A.0] Atherosclerosis of [place] coronary artery of [place] heart without angina pectoris [I25.10] Coronary artery disease involving [place] coronary artery of [place] heart with unstable angina pectoris ([facility]) [I25.110] Type 2 diabetes mellitus without complication, without long-term current use of insulin ([facility]) [E11.9] Hospital course: 59yoF with CAD s/p LAD SARKIS 11 days ago who was admitted to [facility] on 07/11 for chest pain. patient initially presented to [facility] for uncomfortable feeling in her chest and was found to have elevated troponins and new ischemic changes on EKG. Infusion and cardiology was consulted transferred to [facility] for further evaluation. Initially the patient had blood pressures up to 192/65 for which home medications were restarted. Troponins at [facility] were negative and there were no EKG changes concerning for ischemia. Echo was performed which showed EF 70 to 75%. she was cleared from cardiology for discharge and had resolved. Surgical, Invasive or Diagnostic Procedures Done During Admission: None Consultations During Admission: Cardiology Dear Dr. Lidia MD, [facility] is advised to follow up with [...] Provider Department Center 07/18/2024 8:20 AM Feng Christie MD [facility] ENDOCR [facility] 07/20/2024 1:00 PM Richa Grace MD [facility] ONC [facility] 09/05/2024 1:00 PM Bijan Mitchell MD [facility] Your medication list START taking [...] Your Medications These medications were sent to [facility]/pharmacy #[id number] [facility] [phone] [address] isosorbide mononitrate ER 60 mg 24 hr [...] activity In process (more content not included)... [facility] 07-11-2024 Note 07/11/24 1817 Financial Resource Strain [...] place to sleep or slept in a longterm (including now)? N Transportation Needs In the [...] than 3 How often do you attend yazdanism or church services? Never Do you belong to any clubs or organizations such as yazdanism groups, unions, fraternal or athletic groups, or [...] In the past 12 months has the [employer], gas, oil, or water [employer] threatened to shut off services in your home? 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 Referral Reason Psychosocial assessment Patient Information Primary Caregiver Self Accompanied by/Relationship Daughter (Rosita); Ddbxphaa-lw-cfx (Yesy) Activities of Daily Living Assistive Device Not applicable Living Arrangement (Current/Prior to Hospitalization) Private residence (Lives at home by herself) Ambulation Independent Dressing Independent Feeding Independent Behavior Oriented (A&Ox4) Communication Can write;Talks;Understands speaking;Understands Divehi;Reads Income Information Income Source Unemployed (receives survivor benefits) Discharge Planning Support Systems Children;Family members (daughter, [id number]-ulk, son) Type of Residence Private residence Will patient need Precert for Post Acute needs? No Patient's goal for discharge Home Does the patient need discharge transport arranged? No Completed social work assessment and SDoH screening. Patient was A&Ox4 at this time. Patient's daughter, Rosita, and patient's xdalyhjq-mu-xkn, Yesy, were currently present at bedside. Patient reported that she lives at home by herself and she identified her support system as her daughter, Rosita, her rpbwjmgt-du-ggu, Yesy, and her son, Elie. Patient endorsed [...] any alcohol consumption or recreational drug use. [facility] 07-11-2024 Note Hospital Medicine History and Physical 07/11/2024 12:19 PM THE HOSPITALIST TEAM PREFERS TO USE [employer] CHAT FOR COMMUNICATION 7AM-7PM. IF I DO NOT RESPOND WITHIN 15 MINUTES, PLEASE PAGE ME/CALL THROUGH THE CUSTOMS AND BORDER PROTECTION OFFICER. FROM 7PM-7AM, PLEASE PAGE [phone](COVR) Chief Complaint Chief Complaint Patient presents with [...] s/p stent placement 11 days ago at [facility] presented to ER as a transfer from [facility] for NSTEMI. Patient states that last night [...] Noted Hypokalemia 07/11/2024 Coronary artery disease involving [place] coronary artery of [place] heart with unstable angina pectoris ([facility]) 07/11/2024 Anxiety 06/30/2024 Type 2 diabetes mellitus without complication, without long-term current use of insulin ([facility]) 06/30/2024 Chest pain 06/30/2024 Elevated troponin 06/30/2024 Hypertensive urgency 06/30/2024 Hypomagnesemia 06/30/2024 QURESHI (dyspnea on exertion) 05/26/2024 Atherosclerosis of [place] coronary artery of [place] heart without angina pectoris 05/26/2024 Hyperlipidemia 05/26/2024 Murmur, heart 05/26/2024 Sepsis ([facility]) 07/14/2019 BV (bacterial vaginosis) 10/18/2017 GERD (gastroesophageal reflux disease) 10/18/2017 Essential hypertension 10/18/2017 TIA (transient ischemic attack) 10/18/2017 NSTEMI (non-ST elevated myocardial infarction) ([facility]) 06/29/2024 Assessment and Plan NSTEMI CAD, s/p [...] for GI prophylaxis (more content not included)... [facility] 07-10-2024 Note [facility] Note Reason for cardiology [...] Take 1 tablet (more content not included)... [facility] 07-01-2024 Note Hospital Medicine Discharge Summary Final [...] hypertension, IBS presents a direct mission from [facility] with a chief complaint of chest pain. [...] seen on her EKG. She went to [facility] for the symptoms. Labs were completed showing [...] on a heparin drip and transferred to [facility] for likely cardiac cath. # NSTEMI [...] - Continue metformin. Dear Dr. Lidia MD, [facility] is advised to follow up with you within 1-2 weeks. Items to follow up in ambulatory setting: None Follow-up with: Cardiology and Nephrology Scheduled appointments: Future Appointments Date Time Provider Department Center 07/10/2024 2:20 PM Bijan Mitchell MD [facility] Your medication list START taking these medications [...] Your Medications These medications were sent to [facility]/pharmacy #[id number] [address] carvedilol 25 mg tablet cloNIDine 0.1 mg tablet clopidogrel 75 mg tablet rosuvastatin 40 mg tablet Aby is allergic to lisinopril, norvasc [amlodipine], and xanax [alprazolam]. Disposition: Home or Self Care () Discharge Condition: Stable Code Status: Full Code Diagnostic Results Hematology: Results from last 7 days Lab Units 07/01/2462606/30/2471706/29/24 2344 WBC AUTO 10*3/uL 7.04 7.41 8.58 HEMOGLOBIN g/dL 12.4 11.5* 11.8* HEMATOCRIT % 38.6 36.7 35.9* MCV fL 83.7 85.7 82.7 PLATELETS AUTO 10*3/uL 238 243 233 INR -- -- 0.99 Chemistry: Results from last 7 days Lab Units 07/01/2462606/30/2471706/29/24 2344 SODIUM mmol/L 141 143 142 POTASSIUM mmol/L 3.5 3.7 3.7 CHLORIDE mmol/L 106 110* 112* CO2 mmol/L 25 26 22 BUN mg/dL 13 10 11 CREATININE mg/dL 0.91 0.81 0.92 GLUCOSE mg/dL 101* 110* 108* MAGNESIUM mg/dL 2.0 -- 1.7* CALCIUM mg/dL 8.2* 8.3* 8.5* PHOSPHORUS mg/dL -- -- 2.9 Results from last 7 days Lab Units (more content not included)... [facility] 07-01-2024 Note [facility] CARDIOLOGY INPAT IENT PROGRESS NOTE Reason for follow up: NSTEMI Subjective Aby Madrigal, a 59 y.o. female patient, is transferred from [facility] for continuity of care. Patient reports that 3 days ago, she woke up in the mid of the night with indigestion, and a feeling fullness, but no pressure like chest pain. She presented to [facility], where she was found to be hypertensive. [...] 0.56 06/29/2024 E (more content not included)... [facility] 06-30-2024 Note Patient: Aby antony Procedure Information Date/Time: 06/30/24 1600 Procedure: Coronary angiography (Bilateral) Location: [facility] BIN TRIPPER OPERATOR 3 / [facility] (Cath) Providers: Brunilda Cuellar MD [...] Plan discussed with attending. Additional Equipment Requests [facility] 06-30-2024 Note 06/30/24 1446 Referral Data Referral Source coating line worker Referral Reason Follow up;Information Patient Information Primary Caregiver Self Accompanied by/Relationship daughters at bedside Activities of Daily Living Assistive Device Not applicable Living Arrangement (Current/Prior to Hospitalization) Private residence (three to four stairs) Ambulation Independent Dressing Independent Feeding Independent Behavior Oriented Communication Talks;Understands speaking;Understands Divehi Discharge Planning Support Systems Children (daughters will [...] questions for social work at this time. [facility] 06-30-2024 Note 06/30/24 1431 Admission Assessment Questions [...] Not Interested Does the patient have a senior case manager assigned to them through their [...] to send link and activate MyChart? No [facility] 06-30-2024 Note Case was discussed w ith the SALVADOR on 06/29/2024. I agree with the history, physical, assessment, and plan of care. I discussed the findings and therapeutic plan. I agree with the documentation, except for any updates below. Maurice Nogueira MD [facility] 06-30-2024 Note Hospital Medicine History and Physical 06/30/2024 1:15 AM THE HOSPITALIST TEAM PREFERS TO USE [employer] CHAT FOR COMMUNICATION 7AM-7PM. IF I DO NOT RESPOND WITHIN 15 MINUTES, PLEASE PAGE ME/CALL THROUGH THE CUSTOMS AND BORDER PROTECTION OFFICER. FROM 7PM-7AM, PLEASE PAGE [phone](COVR) Chief Complaint Direct admission from [facility] with CP History of Present Illness Aby Madrigal is an 59 y.o. female who came from home with past medical history of anxiety, DM2, hypertension, IBS presents a direct mission from [facility] with a chief complaint of chest pain. [...] seen on her EKG. She went to [facility] for the symptoms. Labs were completed showing [...] on a heparin drip and transferred to [facility] for likely cardiac cath. Review of [...] complication, without long-term current use of insulin ([facility]) 06/30/2024 Chest pain 06/30/2024 Elevated troponin 06/30/2024 Hypertensive urgency 06/30/2024 QURESHI (dyspnea on exertion) 05/26/2024 Atherosclerosis of [place] coronary artery of [place] heart without angina pectoris 05/26/2024 Hyperlipidemia 05/26/2024 Murmur, heart 05/26/2024 Sepsis ([facility]) 07/14/2019 BV (bacterial vaginosis) 10/18/2017 GERD (gastroesophageal reflux disease) 10/18/2017 Essential hypertension 10/18/2017 TIA (transient ischemic attack) 10/18/2017 Assessment and Plan Aby Madrigal is an 59 y.o. female who came from home with past medical history of anxiety, DM2, hypertension, IBS presents a direct mission from [facility] with a chief complaint of chest pain. #Chest pain #Elevated troponin Troponin 0.1, will continue to trend -Patient continues to have mild chest discomfort upon arrival -Continue heparin drip -CXR negative for acute process at OSH -EKG showing normal sinus rhythm -N.p.o. for possible right and left cardiac cath in a.m. -Patient with new diastolic dysfunction on echoc (more content not included)... [facility] 06-21-2024 Note [place] Cardiology - [facility] Subjective Aby Madrigal is a 59 y.o. year old female patient being seen for follow up [facility] ED per Dr. Murillo. She has [...] attack) QURESHI (dyspnea on exertion) Atherosclerosis of [place] coronary artery of [place] heart without angina pectoris Hyperlipidemia Murmur, heart [...] Judgment: Judgment no (more content not included)... [facility] 05-26-2024 Note [facility] Note Reason for cardiology [...] PSYCH: appropriate mood, (more content not included)... [facility] 11-25-2022 Note OPERATIVE NOTE OPERATION DATE: 11/25/2022 [...] 10 years. CC: Kendra Murillo M.D. [facility] 10-11-2022 Note Chief Complaint consultation for colonoscopy [...] Oral, (more content not included)... [facility] Comment on above: Result Comment: Elec tronically Signed By: DIPESH BUCKNER, Umm Valente.germania\Date and Time Signed: 10/11/22 11:01 EST Evaluation + Plan note No data available for this section General Surgery [facility] Discharge instructions No data available for this section General Surgery [place] [facility] note No data available for this section General Surgery [facility] Summary Purpose Family History No Family History Records FoundNo Family History Records FoundNo Family History Records FoundNo Family History Records Found Advance Directives No Advanced Directives Records FoundNo Advanced Directives Records FoundNo Advanced Directives Records FoundNo Advanced Directives Records Found Additional Source Comments INFORMATION SOURCE (unrecogn ized section and content) DATE CREATED AUTHOR 12/17/2021 [facility] DATE CREATED AUTHOR AUTHOR'S ORGANIZ ATION 12/16/[address] [facility] DATE CREATED AUTHOR AUTHOR'S ORGANIZ ATION 03/26/2023 [facility] DATE CREATED AUTHOR AUTHOR'S ORGANIZ ATION 07/19/2024 [facility] Patient Care team informatio n (unrecognized section and content) Personnel Name: Kendra Murillo MD Address: Address: [address] [place] [address] Personnel Name: Kendra Murillo MD Address: Address: [address] [place] [address] FOR RECORDS PERTAINING TO PATIENTS WHO ARE [...] BE BASED ON THE PRIMARY CLINICAL RECORDS. [facility] [employer] [facility]. provides no warranty or guarantee of the accuracy or completeness of information in this document.
[2024-07-20 09:12] LABS: Anion Gap 14.9; BUN Creatinine Ratio 8.9; Calcium 9.5 mg/dL (8.5-10.1); Carbon Dioxide 26.8 mmol/L (21.0-32.0); Chloride 105 mmol/L (98-107); Estimated GFR (African America 54 (>=60); Estimated GFR (Non-African Ame 45 (>=60); Glucose 121 mg/dL (74-106); Potassium 3.7 mmol/L (3.5-5.1); Sodium 143 mmol/L (136-145)
== END 2024-07-20 08:07 | disposition home or self-care (01) ==
LOC: LAB 08:06
PROVIDERS: PCP Family Medicine
DX: I1A.0 Resistant hypertension (principal); E66.09 Other obesity due to excess calories; Z68.37 Body mass index [BMI] 37.0-37.9, adult
CPT/HCPCS: 36415; 80048; 82088; 82533; 84244

== ENCOUNTER 2024-07-20 16:30 | Inpatient (IN) | payer MEDICAID, SELFPAY ==
[2024-07-20] VITALS (11 sets, daily range): BP systolic 149–187; BP diastolic 68–81; PULSE 62–102; TEMP 36.6–36.7; O2SAT 95–98; BMI 37.2; BMI 36.2
--- NOTE | 2024-07-20 16:50 | PC.NURSE ---
pt c/o high BP today.. stated it was 199/102 before leaving her house. Last week was admitted to [facility] for low blood pressure d/t 2 new medications (spironolactone, isosorbide mononitrate). States she feels a little short of breath
--- NOTE | 2024-07-20 16:54 | ECG_ITS ---
[facility] Test Date: 2024-07-20 Pat Name: MILAN RASMUSSEN Department: Room: - Gender: Female Test Architect: : 1965 Requested By: KENDRA MORAN Order Number: [id number] Reading MD: KENDRA MORAN Measurements Intervals Jerome Rate: 60 P: 52 MA: 170 QRS: 0 QRSD: 90 T: 156 QT: 408 QTc: 410 Interpretive Statements 1100 Sinus rhythm 5234 Left ventricular hypertrophy with repolarization abnormality 9150 abnormal ECG Compared to ECG 07/18/2024 18:44:57 No significant changes Electronically Signed On 07-21-2024 7:29:15 EDT by KENDRA MORAN
--- NOTE | 2024-07-20 16:54 | XR_ITS ---
The [address] [address] Patient Name: MILAN RASMUSSEN MRN: [id number] date: 1965 Sex: F Assigned Patient Location: ER Current Patient Location: ER Accession/Order Number: [id number] Exam Date: 07/20/2024 16:56 Report Date: 07/20/2024 17:24 At the request of: ANNA JONES Procedure: XR chest 1V EXAM: XR chest 1V HISTORY: chest pain COMPARISON: 07/18/2024 and earlier TECHNIQUE: AP portable upright chest x-ray. FINDINGS: Lungs clear without infiltrate or edema or new density. Heart size prominent stable. No pleural effusion or pneumothorax. XR/XR chest 1V IMPRESSION: Stable chest x-ray, prominent cardiac silhouette. Clear lungs, no acute process. Electronically authenticated by: HERMINIA CURRY Date: 07/20/2024 17:24
--- NOTE | 2024-07-20 17:05 | ED_ITS ---
HPI HPI - General Adult General Chief complaint: Shortness of Breath/Dyspnea Stated complaint: HIGH BP Time Seen by Provider: 07/20/24 16:32 Source: patient Mode of arrival: Wheelchair Limitations: no limitations History of Present Illness HPI narrative: The patient is coming to us with the chest pain at the main concern for elevated blood pressure, the patient has been to the ER multiple times for her elevated blood pressure and she does have history of coronary artery disease s/p stent placed in [facility] The patient does have history of anxiety she mentioned that she went to her regional account manager yesterday they did order a blood workup for her today that she did before arrival patient complained of a headache as well as chest pain and shortness of breath , it was all associated with the fact that she measured her blood pressure and it was above 190 systolic Related Data Home Medications ?Medication ?Instructions ?Recorded ?Confirmed metformin 500 mg tablet 500 mg PO BID 04/21/24 07/20/24 aspirin 81 mg capsule 81 mg PO DAILY 04/22/24 07/20/24 furosemide 20 mg tablet (Lasix) 20 mg PO DAILY 04/22/24 07/20/24 clonidine HCl 0.1 mg tablet 0.2 mg PO Q12H 06/13/24 07/20/24 losartan 50 mg tablet 100 mg PO DAILY 06/29/24 07/20/24 quetiapine 25 mg tablet 50 mg PO BEDTIME 06/29/24 07/20/24 carvedilol 25 mg tablet 25 mg PO BID 07/01/24 07/20/24 clopidogrel 75 mg tablet 75 mg PO DAILY 07/01/24 07/20/24 lorazepam 0.5 mg tablet (Ativan) 0.5 mg PO Q6H PRN anxiety 07/01/24 07/20/24 rosuvastatin 40 mg sprinkle capsule 40 mg PO DAILY 07/01/24 07/20/24 spironolactone 25 mg tablet 25 mg PO .once in morning 07/18/24 07/20/24 isosorbide mononitrate 60 mg mg PO 07/20/24 tablet,extended release 24 hr sennosides 8.6 mg-docusate sodium 1 tab-cap PO DAILY 07/20/24 07/20/24 50 mg tablet (Colace 2-In-1) Previous Rx's ?Medication ?Instructions ?Recorded pantoprazole 40 mg tablet,delayed 40 mg PO DAILY #30 tabs 06/29/24 release (Protonix) Allergies Allergy/AdvReac Type Severity Reaction Status Date / Time amlodipine Allergy Mild Headache Verified 07/20/24 16:34 alprazolam [From Xanax] AdvReac Severe Watery Eye Verified 07/20/24 16:34 Opioid HPI Opioid Management Most Recent Opioid Data: Last Pain Scale 6 07/11/24 07:20 Last ORT Total Score 0 06/29/24 04:50 Last ORT Risk Category Low Risk 06/29/24 04:50 Review of Systems ROS Status of ROS 10 or more systems reviewed and unremark able except as noted in history and below [facility] Medical History (Updated 07/20/24 @ 17:45 by Theresa Baron MD) Hypokalemia ?E87.6 - Hypokalemia (ICD-10) Hypertension, uncontrolled ?I10 - Essential (primary) hypertension (ICD-10) Chest pain ?R07.9 - Chest pain, unspecified (ICD-10) NSTEMI (non-ST elevated myocardial infarction) ?I21.4 - Non-ST elevation (NSTEMI) myocardial infarction (ICD-10) Shortness of breath ?R06.02 - Shortness of breath (ICD-10) Headache ?R51.9 - Headache, unspecified (ICD-10) Elevated d-dimer ?R79.89 - Other specified abnormal findings of blood chemistry (ICD-10) Hypertensive emergency ?I16.1 - Hypertensive emergency (ICD-10) Uncontrolled hypertension ?I10 - Essential (primary) hypertension (ICD-10) Irritable bowel syndrome ?K58.9 - Irritable bowel syndrome without diarrhea (ICD-10) H/O nephrolithotomy with removal of calculi ?Z98.890 - Other specified postprocedural states (ICD-10) ?Z87.442 - Personal history of urinary calculi (ICD-10) Kidney stone ?N20.0 - Calculus of kidney (ICD-10) Sepsis ?A41.9 - Sepsis, unspecified organism (ICD-10) H/O angiography ?Z92.89 - Personal history of other medical treatment (ICD-10) Lung nodule ?R91.1 - Solitary pulmonary nodule (ICD-10) Anxiety ?F41.9 - Anxiety disorder, unspecified (ICD-10) HTN (hypertension) ?I10 - Essential (primary) hypertension (ICD-10) Diabetes ?E11.9 - Type 2 diabetes mellitus without complications (ICD-10) TIA (transient ischemic attack) ?G45.9 - Transient cerebral ischemic attack, unspecified (ICD-10) Surgical History (Updated 04/22/24 @ 01:20 by Stalin Kevin) History of appendectomy ?Z90.49 - Acquired absence of other specified parts of digestive tract (ICD- 10) H/O tubal ligation ?Z98.51 - Tubal ligation status (ICD-10) History of cholecystectomy ?Z90.49 - Acquired absence of other specified parts of digestive tract (ICD-10) Family History (Updated 04/22/24 @ 01:15 by Stalin Kevin) Mother Family history of cancer Father MVA (motor vehicle accident) Brother Family history of stroke Social History (Updated 04/22/24 @ 01:26 by Stalin Kevin) Within the past year, how often did you have a drink containing alcohol: never Within the past year, how often did you have six or more drinks on one occasion: never Score interpretation: A score less than 3 is consistent with normal alcohol consumption. Smoking status: Former smoker Second hand tobacco smoke exposure: No Non-prescribed substance use: denies use Previous occupational history: no Known occupational exposures/hazards: No Highest level of school completed/degree received: high school graduate Do you want help with school or training: No Are you now , , , , never or living with a partner: In a typical week, how many times do you talk on the telephone with family, friends, or neighbors: 3 or more times per week How often do you get together with friends or relatives: 3 or more times per week How often do you attend taoism or quaker services: never Do you belong to any clubs or organizations such as taoism groups unions, fraternal or athletic groups, or school groups: no Total score: 1 Score interpretation: A score of less than or equal to 1 indicates the most socially isolated. Little interest or pleasure in doing things: not at all Feeling down, depressed, or hopeless: not at all Feel stressed/tense/nervous/anxious/difficulty sleeping: not at all Gender Identity: female Exam Narrative Exam Narrative: Nurses notes and vital signs reviewed and patient is not hypoxic. General: Well-appearing and in no apparent distress. Skin: Warm, dry, no pallor noted. No rash. Head: Normocephalic, atraumatic. Neck: Supple, non-tender. Eye: Pupils are equal, round and EOMI. No scleral icterus. Ears, Nose, Mouth, and Throat: TM are clear, no nasal mucosal hypertrophy. Oral mucosa is moist, no posterior oropharynx erythema, uvula is mid-line Cardiovascular: Regular Rate and Rhythm without murmur, gallop or rub. Respiratory: No accessory muscle use or respiratory distress. Lungs are clear to auscultation, no wheezing, rales or rhonchi Chest Wall: no tenderness Back: No midline thoracic or lumbar vertebral tenderness. No CVA tenderness Musculoskeletal: normal ROM, no calf or popliteal tenderness, no lower extremity edema/swelling GI: Abdomen is soft, non-distended. Normal bowel sounds. No masses appreciated. No tenderness to palpation. No rebound, guarding, or rigidity noted. Neurological: A&O x4. No cranial nerve dysfunction observed. No truncal ataxia. Moves all extremities. Sensation intact. Psychiatric: Cooperative and interactive. Normal mood and affect. Constitutional Vital Signs, click to edit/add: Last Vital Signs Temp 98.0 F 07/20/24 17:31 Pulse 62 07/20/24 16:46 Resp 18 07/20/24 16:46 BP 169/73 H 07/20/24 16:46 Pulse Ox 98 07/20/24 16:46 O2 Del Method Room Air 07/20/24 16:34 Course Vital Signs Vital signs: Vital Signs Pulse Rate 67 07/20/24 16:34 Respiratory Rate 16 07/20/24 16:34 Blood Pressure 187/81 H 07/20/24 16:34 Pulse Oximetry 95 07/20/24 16:34 Oxygen Delivery Method Room Air 07/20/24 16:34 Temperature 98.0 F 07/20/24 17:31 Pulse Rate 62 07/20/24 16:46 Respiratory Rate 18 07/20/24 16:46 Blood Pressure 169/73 H 07/20/24 16:46 Pulse Oximetry 98 07/20/24 16:46 Oxygen Delivery Method Room Air 07/20/24 16:34 Medical Decision Making MDM Narrative Medical decision making narrative: The patient EKG showing sinus rhythm with a heart rate of [address] elevation or depression compared to the old EKG The patient is coming to us with a chest pain in addition to her blood pressure elevated, she has been having a problem controlling her blood pressure and she is a high risk patient with history of coronary artery disease Right now the patient EKG does not show any acute changes and her chest x-ray showed no acute significant pathology Troponin is negative The patient case was discussed with Dr. Murillo he will admit her for further evaluation and observation for blood pressure Lab Data Labs: Lab Results 07/20/24 Range/Units 17:19 Troponin I High Sens 12.6 (4.0-51.3) pg/mL Discharge Plan Discharge Chief Complaint: Shortness of Breath/Dyspnea Clinical Impression: Hypertensive urgency Chest pain Qualifiers: Chest pain type: unspecified Qualified Code(s): R07.9 - Chest pain, unspecified Patient Disposition: Admitted as Observation Time of Disposition Decision: 17:44
[2024-07-20 17:46] LABS: Troponin I High Sensitivity 12.6 pg/mL (4.0-51.3)
[2024-07-20] MEDS: LORAZEPAM 0.5 MG TABLET PO (18:12)
--- OUTSIDE RECORDS SUMMARY | 2024-07-20 18:32 | XMS_ITS | CCD ---
Author Organization [facility] Care Team Providers Care Carroting Machine Offbearer Name Role Phone Kendra Murillo Primary Care Physician [phone] Umm MARTÍNEZ Attending Unavailable NILL, Umm Michael [...] Medication Allergies] Propensity to adverse reactions (disorder) [facility] Repository (1 source) ALPRAZolam; 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: [ALPRAZOLAM] Drug Allergy [address] [place] [address] Repository (1 source) amLODIPine; 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: [AMLODIPINE] Drug Allergy 4 [facility] Repository (1 source) Lisinopril; 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: [LISINOPRIL] Drug Allergy [address] [place] [address] Repository Medications Current Medications Medication Drug Class(es) [...] Coronary arteriosclerosis; 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: [Atherosclerotic heart disease of [place] coronary artery without angina pectoris] Onset: 3 [...] 11-26-2022 12-20-2019 Episodic Other aftercare (1 source) 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; 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: [GAS JOCKEY CURRENT USE OF ASPIRIN] Onset: 11-26-2022 Episodic Other aftercare (1 source) Other detention (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 therapy; 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: [OTH GAS JOCKEY CURRENT DRUG THERAPY] Onset: 11-26-2022 Episodic Other [...] lab work done at one of these [facility] Sites The results will then come straight to me I appreciate it [facility] [address], [place] Hours Wednesday - Wednesday 8 AM - 4PM (Closed 12 - 12:30 PM daily) Phone: [facility] [address] Hours: Wednesday - Wednesday 6 AM - 5 PM Saturday: 7 AM - 2 PM Phone: [address] [place] Hours: Wednesday - Wednesday 7 AM - 3:30 PM Phone: [facility] [address] Hours: Wednesday - Wednesday 7 AM - 5:30 PM Phone: Kayy Maurer [facility] [address], [place] Hours: Wednesday - Wednesday 8 AM - 4:30 PM Phone: [facility] EDNURSon 07-18-2024 EDNURS ADR and relevant inf o reported to [facility] in pharmacy d/t safety net being down. Viet Kelly RN 07/18/24 1139 [facility] EDNURS SENT FROM MD OFFICE RE: LOW BP; RECENT DC FROM [facility] FOR SAME [facility] EDPROVon 07-18-2024 EDPROV [...] new meds yesterday. History provided by: Patient licensed certified orthotist used: No Latta Coma Scale Score: 15 Patient History Past [...] Basilia senior, documented on behalf of Dr. iL. Chief complaint hypotension Differential Diagnosis includes but [...] mouth i (more content not included)... Normal [facility] Office Visiton 07-18-2024 Follow-up visit [id number] Aby Madrigal Cristina 1965 Date Provider Department [place] 07/18/2024 [id number] [facility]MAN [facility] Family History Problem Relation Age of Onset Lung cancer Mother No Known Problems Father Lung cancer Sister Family Status - Relation Status Age at Mother Father Sister Level of Service:76942 SD OFFICE/OUTPATIENT NEW MODERATE MDM 45 MINUTES Reason for Visit and Comments: Nodules [Other] Normal [facility] Follow-up visit [id number] NeladamianAby spence Cristina 1965 Provider Department [place] 07/18/2024 [id number] [facility]MAN [facility] Family History Problem Relation Age of Onset Lung cancer Mother No Known Problems Father Lung cancer Sister Family Status - Relation Status Age at Mother Father Sister Level of Service:NOCHG SD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 I am calling you to follow up [...] Patient Name Aby Madrigal Date 07/13/24 Normal [facility] Telephoneon 07-13-2024 Telephone [id number] Aby Madrigal 1965 F Date Provider Department Center 07/13/2024 GINNY MALONEY [facility] C Family History Problem Relation Age of Onset Lung cancer Mother No Known Problems Father Lung cancer Sister Family Status - Relation Status Age at Mother Father Sister Reason for Visit and Comments: Hospital Follow-up [832] Normal [facility] 30on 07-12-2024 30 The patient is [...] to address these barriers include . Normal [facility] ANTI-XA (HEPARIN LEVEL)on HEPARIN UNFRACTIONATED (U/ML) IN PPP BY CHROMOGENIC METHOD 0.60 IU/mL Normal 0.3-0.7 [facility] Comment on above: Order Comment: Waive d Testing in the ED is performed under the ED CLIA certificate #[id number]. Result Comment: [place] roxaban and Apixaban will interfere with the anti Xa assay used to monitor UFH and LMWH. Performed By: #### L [id number] #### [facility] (BEAKER) [address] [place] [address] BASIC METABOLIC PANELon 06-23 Anion gap [Moles/Vol] 10 mmol/L Normal 7-20 [facility] Comment on above: Performed By: #### L [id number] #### [facility] ([facility]AKER) [address] [place] [address] Calcium [Mass/Vol] 8.8 mg/dL Normal 8.6-10.3 [facility] Comment on above: Performed By: #### L [id number] #### [facility] ([facility]) [address] [place] [address] Chloride [Moles/Vol] 108 mmol/L High 98-107 [facility] Comment on above: Performed By: #### L [id number] #### [facility] ([facility]) [address] [place] [address] CO2 [Moles/Vol] 27 mmol/L Normal 21-31 [facility] Comment on above: Performed By: #### L [id number] #### [facility] ([facility]) [address] [place] [address] Creatinine [Mass/Vol] 0.89 mg/dL Normal 0.60-1.20 [facility] Comment on above: Performed By: #### L [id number] #### [facility] ([facility]) [address] [place] [address] GLOMERULAR FILTRATION RATE ML/MIN/1.73 SQ M.PREDICTED 74.2 mL/min/1.73m*2 Normal >60.0 [facility] Comment on above: Result Comment: The [facility]???s estimated glomerular filtration rate (eGFR) will [...] group of individuals. Performed By: #### L [id number] #### [facility] ([facility]) [address] [place] [address] Glucose [Mass/Vol] 109 mg/dL High 70-100 [facility] Comment on above: Performed By: #### L [id number] #### [facility] ([facility] [address] [place] [address] Potassium [Moles/Vol] 3.4 mmol/L Low 3.5-5.1 [facility] Comment on above: Performed By: #### L [id number] #### [facility] ([facility]) [address] [facility] [place] [address] Sodium [Moles/Vol] 142 mmol/L Normal 136-145 [facility] Comment on above: Performed By: #### L [id number] #### [facility] ([facility]) [address] [place] [address] Urea nitrogen [Mass/Vol] 11 mg/dL Normal 7-25 [facility] Comment on above: Performed By: #### L [id number] #### [facility] ([facility]) [address] [place] [address] UREA NITROGEN/CREATININE (MASS RATIO) IN SER/PLAS 12.4 Normal [facility] Comment on above: Performed By: #### L [id number] #### [facility] ([facility]) [address] [place] [address] CBC WITH AUTO DIFFERENTIALon 07-12-2024 Basophils (Bld) [#/Vol] 0.04 10*3/uL Normal 0.00-0.20 [facility] Comment on above: Performed By: #### L [id number] #### [facility] ([facility]) [address] [place] [address] Basophils/100 WBC (Bld) 0.6 % Normal 0.0-1.0 [facility] Comment on above: Performed By: #### L [id number] #### [facility] ([facility]) [address] [place] [address] Eosinophils (Bld) [#/Vol] 0.22 10*3/uL Normal 0.00-0.50 [facility] Comment on above: Performed By: #### L [id number] #### [facility] [address] [place] [address] Eosinophils/100 WBC (Bld) 3.5 % Normal 0.0-6.0 [facility] Comment on above: Performed By: #### L [id number] #### [facility] [address] [place] [address] Erythrocyte distribution width (RBC) [Ratio] 14.5 % Normal 11.5-15.0 [facility] Comment on above: Performed By: #### L [id number] #### [facility] [address] [place] [address] ERYTHROCYTE MEAN CORPUSCULAR HEMOGLOBIN CONCENTRATION (G/DL) BY AUTOMATED 32.7 g/dL Normal 32.0-35.0 [facility] Comment on above: Performed By: #### L [id number] #### [facility] ([facility]) [address] [place] [address] Hematocrit (Bld) [Volume fraction] 34.2 % Low 36.0-48.0 [facility] Comment on above: Performed By: #### L [id number] #### [facility] (BEAKER) [address] [place] [address] Hemoglobin (Bld) [Mass/Vol] 11.2 g/dL Low 12.0-15.0 [facility] Comment on above: Performed By: #### L [id number] #### [facility] [address] [place] [address] Immature granulocytes (Bld) [#/Vol] 0.01 10*3/uL Normal 0.00-0.20 [facility] Comment on above: Performed By: #### L [id number] #### [facility] ([facility]ER) [address] [place] [address] Immature granulocytes/100 WBC (Bld) 0.2 % Normal 0.0-1.0 [facility] Comment on above: Performed By: #### L [id number] #### [facility] ([facility]AKER) [address] [place] [address] Lymphocytes (Bld) [#/Vol] 2.37 10*3/uL Normal 1.20-4.00 [facility] Comment on above: Performed By: #### L [id number] #### [facility] [address] [place] [address] Lymphocytes/100 WBC (Bld) 37.8 % Normal 20.0-45.0 [facility] Comment on above: Performed By: #### L [id number] #### [facility] ([facility]) [address] [place] [address] MCH (RBC) [Entitic mass] 27.4 pg Normal 27.0-33.0 [facility] Comment on above: Performed By: #### L [id number] #### [facility] ([facility] [address] [place] [address] MCV (RBC) [Entitic vol] 83.6 fL Normal 82.0-98.0 [facility] Comment on above: Performed By: #### L [id number] #### [facility] ([facility]) [address] [place] [address] Monocytes (Bld) [#/Vol] 0.43 10*3/uL Normal 0.10-1.00 [facility] Comment on above: Performed By: #### L [id number] #### [facility] ([facility]AKER) [address] [place] [address] Monocytes/100 WBC (Bld) 6.9 % Normal 5.0-12.0 [facility] Comment on above: Performed By: #### L [id number] #### [facility] (BEAKER) [address] [place] [address] Neutrophils (Bld) [#/Vol] 3.20 10*3/uL Normal 1.60-7.60 [facility] Comment on above: Performed By: #### L [id number] #### [facility] ([facility]AKER) [address] [place] [address] Neutrophils/100 WBC (Bld) 51.0 % Normal 40.0-72.0 [facility] Comment on above: Performed By: #### L [id number] #### [facility] ([facility]) [address] [place] [address] NRBC (PER 100 WBCS) BY AUTOMATED COUNT 0.0 % Normal 0 [facility] Comment on above: Performed By: #### L [id number] #### [facility] ([facility]) [address] [place] [address] PLATELETS (10*3/UL) IN BLOOD AUTOMATED COUNT 223 10*3/uL Normal 150-400 [facility] Comment on above: Performed By: #### L [id number] #### [facility] ([facility]) [address] [place] [address] RBC (Bld) [#/Vol] 4.09 10*6/uL Normal 3.80-5.00 [facility] Comment on above: Performed By: #### L [id number] #### [facility] ([facility]) [address] [place] [address] WBC (Bld) [#/Vol] 6.27 10*3/uL Normal 4.00-10.60 [facility] Comment on above: Performed By: #### L [id number] #### [facility] ([facility]) [address] [place] [address] MAGNESIUMon 07-12-2024 Magnesium [Mass/Vol] 1.7 mg/dL Low 1.9-2.7 [facility] Comment on above: Performed By: #### L [id number] #### [facility] ([facility]) [address] [place] [address] POCT GLUCOSE METER UNSOLICIT ED RESULTSon 07-12-2024 Glucose [Mass/Vol] 102 mg/dL Normal 70-105 [facility] Comment on above: Order Comment: Basel ine aPTT before initiating heparin infusion. Result Comment: shodamien [email or web address] Performed By: #### L [id number] #### [facility] ([facility]) [address] [place] [address] TROPONIN Ion 07-12-2024 Troponin I.cardiac [Mass/Vol] 0.01 ng/mL Normal 0.00-0.04 [facility] Comment on above: Performed By: #### L [id number] #### [facility] ([facility]AR[facility]) [address] [place] [address] 30on 07-11-2024 30 The patient is Moderately [...] and maintained or improved Outcome: Progressing Normal [facility] 30 The patient is Moderately Stable - Low risk of patient condition declining or worsening The patient's goals for the shift include no chest pain The clinical goals for the shift include stable vital/no chest pain Over the shift, the patient did not make progress toward the following goals. Barriers to progression include . Recommendations to address these barriers include . Normal [facility] ALDOSTERONEon 07-11-2024 ALDOSTERONE (NG/DL) IN SER/PLAS 4.9 ng/dL Normal [facility] Comment on above: Result Comment: INTE [...] reference intervals for this test in the [facility] ([facility]). Performed By: [employer] [address] [place] [id number] Flooring Machine Feeder: Navneet Simeon MD, PhD CLIA Number: [id number] Performed By: #### L [id number] #### [facility] ([facility]) [address] [place] [address] ANTI-XA (HEPARIN LEVEL)on HEPARIN UNFRACTIONATED (U/ML) IN PPP BY CHROMOGENIC METHOD 0.42 IU/mL Normal 0.3-0.7 [facility] Comment on above: Order Comment: Check anti-Xa level every 6 hours while on heparin infusion, or per protocol. Result Comment: [place] roxaban and Apixaban will interfere with the anti Xa assay used to monitor UFH and LMWH. Performed By: #### L [id number] #### [facility] ([facility]) [address] [place] [address] HEPARIN UNFRACTIONATED (U/ML) IN PPP BY CHROMOGENIC METHOD 0.20 IU/mL Low 0.3-0.7 [facility] Comment on above: Order Comment: Basel ine aPTT before initiating heparin infusion. Result Comment: [place] roxaban and Apixaban will interfere with the anti Xa assay used to monitor UFH and LMWH. Performed By: #### L [id number] #### [facility] ([facility]) [address] [place] [address] APTTon 07-11-2024 ACTIVATED PARTIAL THROMBOPLASTIN TIME IN PPP BY COAGULATION ASSAY 43.0 Seconds High 25.0-35.0 [facility] Comment on above: Result Comment: Clin ical significance of the APTT is questionable in the presence of heparin. Performed By: #### L [id number] #### [facility] ([facility]) [address] [place] [address] BASIC METABOLIC PANELon 06-23 Anion gap [Moles/Vol] 9 mmol/L Normal 7-20 [facility] Comment on above: Performed By: #### L [id number] #### [facility] ([facility]) [address] [place] [address] Calcium [Mass/Vol] 8.8 mg/dL Normal 8.6-10.3 [facility] Comment on above: Performed By: #### L [id number] #### [facility] ([facility] [address] [place] [address] Chloride [Moles/Vol] 108 mmol/L High 98-107 [facility] Comment on above: Performed By: #### L [id number] #### [facility] ([facility]) [address] [place] [address] CO2 [Moles/Vol] 28 mmol/L Normal 21-31 [facility] Comment on above: Performed By: #### L [id number] #### [facility] ([facility]) [address] [place] [address] Creatinine [Mass/Vol] 1.09 mg/dL Normal 0.60-1.20 [facility] Comment on above: Performed By: #### L [id number] #### [facility] ([facility]) [address] [place] [address] GLOMERULAR FILTRATION RATE ML/MIN/1.73 SQ M.PREDICTED 58.2 mL/min/1.73m*2 Low >60.0 [facility] Comment on above: Result Comment: The [facility]???s estimated glomerular filtration rate (eGFR) will [...] individuals. Performed By: #### L [id number] #### [facility] ([facility]) [address] [place] [address] Glucose [Mass/Vol] 113 mg/dL High 70-100 [facility] Comment on above: Performed By: #### L [id number] #### [facility] (BEAKER) [address] [place] [address] Potassium [Moles/Vol] 3.4 mmol/L Low 3.5-5.1 [facility] Comment on above: Performed By: #### L [id number] #### [facility] ([facility]) [address] [place] [address] Sodium [Moles/Vol] 142 mmol/L Normal 136-145 [facility] Comment on above: Performed By: #### L [id number] #### [facility] ([facility]) [address] [place] [address] Urea nitrogen [Mass/Vol] 14 mg/dL Normal 7-25 [facility] Comment on above: Performed By: #### L [id number] #### [facility] ([facility]) [address] [place] [address] UREA NITROGEN/CREATININE (MASS RATIO) IN SER/PLAS 12.8 Normal [facility] Comment on above: Performed By: #### L [id number] #### [facility] ([facility]) [address] [place] [address] CBC WITH AUTO DIFFERENTIALon 07-11-2024 Basophils (Bld) [#/Vol] 0.04 10*3/uL Normal 0.00-0.20 [facility] Comment on above: Performed By: #### L [id number] #### [facility] ([facility]) [address] [place] [address] Basophils/100 WBC (Bld) 0.6 % Normal 0.0-1.0 [facility] Comment on above: Performed By: #### L [id number] #### [facility] ([facility]) [address] [place] [address] Eosinophils (Bld) [#/Vol] 0.16 10*3/uL Normal 0.00-0.50 [facility] Comment on above: Performed By: #### L [id number] #### [facility] ([facility]) [address] [place] [address] Eosinophils/100 WBC (Bld) 2.2 % Normal 0.0-6.0 [facility] Comment on above: Performed By: #### L [id number] #### [facility] [address] [place] [address] Erythrocyte distribution width (RBC) [Ratio] 14.6 % Normal 11.5-15.0 [facility] Comment on above: Performed By: #### L [id number] #### [facility] ([facility] [address] [place] [address] ERYTHROCYTE MEAN CORPUSCULAR HEMOGLOBIN CONCENTRATION (G/DL) BY AUTOMATED 32.0 g/dL Normal 32.0-35.0 [facility] Comment on above: Performed By: #### L [id number] #### [facility] ([facility]) [address] [place] [address] Hematocrit (Bld) [Volume fraction] 36.2 % Normal 36.0-48.0 [facility] Comment on above: Performed By: #### L [id number] #### [facility] ([facility]) [address] [place] [address] Hemoglobin (Bld) [Mass/Vol] 11.6 g/dL Low 12.0-15.0 [facility] Comment on above: Performed By: #### L [id number] #### [facility] ([facility] [address] [place] [address] Immature granulocytes (Bld) [#/Vol] 0.02 10*3/uL Normal 0.00-0.20 [facility] Comment on above: Performed By: #### L [id number] #### [facility] (BEAKER) [address] [place] [address] Immature granulocytes/100 WBC (Bld) 0.3 % Normal 0.0-1.0 [facility] Comment on above: Performed By: #### L [id number] #### [facility] ([facility]) [address] [place] [address] Lymphocytes (Bld) [#/Vol] 2.34 10*3/uL Normal 1.20-4.00 [facility] Comment on above: Performed By: #### L [id number] #### [facility] [address] [place] [address] Lymphocytes/100 WBC (Bld) 32.6 % Normal 20.0-45.0 [facility] Comment on above: Performed By: #### L [id number] #### [facility] ([facility]) [address] [place] [address] MCH (RBC) [Entitic mass] 27.2 pg Normal 27.0-33.0 [facility] Comment on above: Performed By: #### L [id number] #### [facility] ([facility]) [address] [place] [address] MCV (RBC) [Entitic vol] 85.0 fL Normal 82.0-98.0 [facility] Comment on above: Performed By: #### L [id number] #### [facility] ([facility]) [address] [place] [address] Monocytes (Bld) [#/Vol] 0.49 10*3/uL Normal 0.10-1.00 [facility] Comment on above: Performed By: #### L [id number] #### [facility] [address] [place] [address] Monocytes/100 WBC (Bld) 6.8 % Normal 5.0-12.0 [facility] Comment on above: Performed By: #### L [id number] #### [facility] ([facility] [address] [place] [address] Neutrophils (Bld) [#/Vol] 4.13 10*3/uL Normal 1.60-7.60 [facility] Comment on above: Performed By: #### L [id number] #### [facility] ([facility]AK[facility]) [address] [place] [address] Neutrophils/100 WBC (Bld) 57.5 % Normal 40.0-72.0 [facility] Comment on above: Performed By: #### L [id number] #### [facility] ([facility]) [address] [place] [address] NRBC (PER 100 WBCS) BY AUTOMATED COUNT 0.0 % Normal 0 [facility] Comment on above: Performed By: #### L [id number] #### [facility] ([facility]) [address] [place] [address] PLATELETS (10*3/UL) IN BLOOD AUTOMATED COUNT 245 10*3/uL Normal 150-400 [facility] Comment on above: Performed By: #### L [id number] #### [facility] ([facility]) [address] [place] [address] RBC (Bld) [#/Vol] 4.26 10*6/uL Normal 3.80-5.00 [facility] Comment on above: Performed By: #### L [id number] #### [facility] ([facility]) [address] [place] [address] WBC (Bld) [#/Vol] 7.18 10*3/uL Normal 4.00-10.60 [facility] Comment on above: Performed By: #### L [id number] #### [facility] ([facility]) [address] [place] [address] CONSULTon 07-11-2024 CONSULT -- Attestation signed by [...] Brown is the endocrine surgeon in the [place] area that would be most appropriate and [...] with plan for outpatient follow up with [facility]ocrinology Meseret Mac MD Cardiology Consult Note Reason for Consult: Chest pain HPI: Aby Madrigal is a 59 y.o. female patient is presenting as a transfer from [facility] for the evaluation of chest pain. [...] medical history of Abnormal ECG, Diabetes mellitus ([facility]/HCC), Hyperlipidemia, Hypertension, Obstructive sleep apnea, Panic attacks, [...] Value Ventricular Rate 56 Atrial Rate 56 SD Interval 180 QRS DURATION 94 QT Interval 430 QTC (more content not included)... Normal [facility] EDPROVon 07-11-2024 EDPROV HPI Chief Complaint [...] Pt states she was tras[place]fered here from [place] transferred to cardiology. Pt states she had a cardiac stent placed last week. She denies fever, coughing, vomiting, abdominal pain. She admits diarrhea. She felt better when given ativan and worse when she was given morphine. She has had her gallbladder removed. History provided by: Patient licensed certified orthotist used: No Chest Pain Associated symptoms: no abdominal pain, no cough, no fever and no vomiting Latta Coma Scale Score: 15 Patient History Past [...] signing this emergency patient record, the Emergency Physician/EASTERN PHILOSOPHY PROFESSOR/PA-C attests that all entries made into the electronic medical record by the scribe prior to the Physician/EASTERN PHILOSOPHY PROFESSOR/PA-C signature reflect an accurate accounting of the evaluation and care rendered by that Emergency Physician/EASTERN PHILOSOPHY PROFESSOR/PA-C. The Emergency Physician/EASTERN PHILOSOPHY PROFESSOR/PA-C assumes full responsibility for those entries. The Emergency Physician/EASTERN PHILOSOPHY PROFESSOR/PA-C also attests that any patient testing or treatment that was instituted by nursing staff. Normal [facility] EDPROV HPI Chief Complaint Patient presents [...] Pt states she was trasnfered here from [place] to be transferred to cardiology. Pt states she had a cardiac stent placed last week. She denies fever, coughing, vomiting, abdominal pain. She admits diarrhea. She felt better when given ativan and worse when she was given morphine. She has had her gallbladder removed. History provided by: Patient licensed certified orthotist used: No Chest Pain Associated symptoms: no abdominal pain, no cough, no fever and no vomiting Latta Coma Scale Score: 15 Patient History Past [...] 07/11/24 1256 NSTEMI (non-ST elevated myocardial infarction) ([facility]) Medical Decision Making Amount and/or Complexity of Data Reviewed Labs: ordered. Decision-making details documented in ED Course. ECG/medicine tests: ordered and independent interpretation performed. Decision-making details documented in ED Course. Risk Drug therapy requiring intensive monitoring for toxicity. Decision regarding hospitalization. Minor surgery with identified risk factors. IBasilia (more content not included)... Invalid Interpretation Code [facility] POCT GLUCOSE METER UNSOLICIT ED RESULTSon 07-11-2024 Glucose [Mass/Vol] 122 mg/dL High 70-105 [facility] Comment on above: Order Comment: Waive d Testing in the ED is performed under the ED CLIA certificate #[id number]. Result Comment: [email or web address] Performed By: #### L [id number] #### [facility] ([facility]) [address] [place] [address] PROTIME-INRon 07-11-2024 INR IN PPP BY COAGULATION ASSAY 1.00 Normal 0.90-1.10 [facility] Comment on above: Result Comment: ACCC [...] RANGE. CHEST 1995;108:231S-246S. Performed By: #### L [id number] #### [facility] ([facility]) [address] [place] [address] PROTHROMBIN TIME (PT) IN PPP BY COAGULATION ASSAY 13.2 Seconds Normal 12.3-14.8 [facility] Comment on above: Performed By: #### L [id number] #### [facility] ([facility]) [address] [place] [address] RENIN ACTIVITYon 07-11-2024 RENIN ACTIVITY <0.1 Normal [facility] Comment on above: Result Comment: INTE RPRETIVE INFORMATION: Renin Activity Adult, Normal sodium diet: Supine ................. 0.2-1.6 ng/mL/hr Upright ................ 0.5-4.0 ng/mL/hr Children, Normal sodium diet, Supine: Humphrey (1-7 days) ..... 2.0-35.0 ng/mL/hr Cord blood [...] developed and its performance characteristics determined by [employer]. It has not been cleared or approved by the US Food and Drug Administration. This test was performed in a CLIA certified laboratory and is intended for clinical purposes. Performed By: [employer] [facility] [address] [place] [id number] Flooring Machine Feeder: Navneet Simeon MD, PhD CLIA Number: [id number] Performed By: #### L [id number] #### [facility] (BEAKER) [address] [place] [address] TROPONIN Ion 07-11-2024 Troponin I.cardiac [Mass/Vol] 0.01 ng/mL Normal 0.00-0.04 [facility] Comment on above: Performed By: #### L [id number] #### [facility] ([facility]) [address] [place] [address] Office Visiton 07-10-2024 Follow-up visit [id number] Aby Madrigal 1965 F Date Provider Department Center 07/10/2024 [id number] MITCHELL CARD [facility] Family History Problem Relation Age of Onset Lung cancer Mother No Known Problems Father Lung cancer Sister Family Status - Relation Status Age at Mother Father Sister Level of Service:31581 SD OFFICE/OUTPATIENT ESTABLISHED MOD MDM 30 MIN Reason for Visit and Comments: Coronary Artery Disease [187] Post-Cath [731] Normal [facility] 36on 07-03-2024 36 Post Discharge Call Good morning, I am Ginny Kirkland, RN a lead nurse from [facility]. I am calling you to follow up [...] Patient Name Aby Madrigal Date 07/03/24 Normal [facility] Telephoneon 07-03-2024 Telephone [id number] Aby Madrigal 1965 F Date Provider Department Center 07/03/2024 [facility] Problem Relation Age of Onset Lung cancer Mother No Known Problems Father Lung cancer Sister Family Status - Relation Status Age at Mother Father Sister Reason for Visit and Comments: Hospital Follow-up [832] Normal [facility] 30on 07-01-2024 30 The patient is [...] and maintained or improved Outcome: Progressing Normal [facility] BASIC METABOLIC PANELon 06-22 Anion gap [Moles/Vol] 14 mmol/L Normal 7-20 [facility] Comment on above: Performed By: #### L [id number] #### [facility] ([facility]) [address] [place] [address] Calcium [Mass/Vol] 8.2 mg/dL Low 8.6-10.3 [facility] Comment on above: Performed By: #### L [id number] #### [facility] ([facility]) [address] [place] [address] Chloride [Moles/Vol] 106 mmol/L Normal 98-107 [facility] Comment on above: Performed By: #### L [id number] #### [facility] ([facility]) [address] [place] [address] CO2 [Moles/Vol] 25 mmol/L Normal 21-31 [facility] Comment on above: Performed By: #### L [id number] #### [facility] ([facility]) [address] [place] [address] Creatinine [Mass/Vol] 0.91 mg/dL Normal 0.60-1.20 [facility] Comment on above: Performed By: #### L [id number] #### [facility] ([facility]) [address] [place] [address] GLOMERULAR FILTRATION RATE ML/MIN/1.73 SQ M.PREDICTED 72.2 mL/min/1.73m*2 Normal >60.0 [facility] Comment on above: Result Comment: The [facility]???s estimated glomerular filtration rate (eGFR) will [...] individuals. Performed By: #### L [id number] #### [facility] ([facility]) [address] [place] [address] Glucose [Mass/Vol] 101 mg/dL High 70-100 [facility] Comment on above: Performed By: #### L [id number] #### [facility] ([facility]) [address] [place] [address] Potassium [Moles/Vol] 3.5 mmol/L Normal 3.5-5.1 [facility] Comment on above: Performed By: #### L [id number] #### [facility] ([facility]) [address] [place] [address] Sodium [Moles/Vol] 141 mmol/L Normal 136-145 [facility] Comment on above: Performed By: #### L [id number] #### [facility] ([facility]) [address] [place] [address] Urea nitrogen [Mass/Vol] 13 mg/dL Normal 7-25 [facility] Comment on above: Performed By: #### L [id number] #### [facility] ([facility]) [address] [place] [address] UREA NITROGEN/CREATININE (MASS RATIO) IN SER/PLAS 14.3 Normal [facility] Comment on above: Performed By: #### L [id number] #### [facility] ([facility]) [address] [place] [address] CBCon 07-01-2024 Erythrocyte distribution width (RBC) [Ratio] 15.4 % High 11.5-15.0 [facility] Comment on above: Performed By: #### L [id number] #### [facility] ([facility]) [address] [place] [address] ERYTHROCYTE MEAN CORPUSCULAR HEMOGLOBIN CONCENTRATION (G/DL) BY AUTOMATED 32.1 g/dL Normal 32.0-35.0 [facility] Comment on above: Performed By: #### L [id number] #### [facility] ([facility]) [address] [place] [address] Hematocrit (Bld) [Volume fraction] 38.6 % Normal 36.0-48.0 [facility] Comment on above: Performed By: #### L [id number] #### [facility] ([facility]) [address] [place] [address] Hemoglobin (Bld) [Mass/Vol] 12.4 g/dL Normal 12.0-15.0 [facility] Comment on above: Performed By: #### L [id number] #### [facility] ([facility]) [address] [place] [address] MCH (RBC) [Entitic mass] 26.9 pg Low 27.0-33.0 [facility] Comment on above: Performed By: #### L [id number] #### [facility] ([facility]) [address] [place] [address] MCV (RBC) [Entitic vol] 83.7 fL Normal 82.0-98.0 [facility] Comment on above: Performed By: #### L [id number] #### [facility] ([facility]) [address] [place] [address] PLATELETS (10*3/UL) IN BLOOD AUTOMATED COUNT 238 10*3/uL Normal 150-400 [facility] Comment on above: Performed By: #### L [id number] #### [facility] ([facility]) [address] [place] [address] RBC (Bld) [#/Vol] 4.61 10*6/uL Normal 3.80-5.00 [facility] Comment on above: Performed By: #### L [id number] #### [facility] ([facility]) [address] [place] [address] WBC (Bld) [#/Vol] 7.04 10*3/uL Normal 4.00-10.60 [facility] Comment on above: Performed By: #### L [id number] #### [facility] ([facility]) [address] [place] [address] LIPID PANELon 07-01-2024 CHOL/HDL 3.8 mg/dL Normal [facility] Comment on above: Performed By: #### L [id number] #### [facility] ([facility]) [address] [address] Cholesterol [Mass/Vol] 128 mg/dL Normal 120-200 [facility] Comment on above: Performed By: #### L [id number] #### [facility] ([facility]) [address] [address] Magnesium [Mass/Vol] 87 mg/dL Normal 40-149 [facility] Comment on above: Result Comment: TRIG LYCERIDE REFERENCE RANGE: 20 YEARS AND OLDER CARDIOVASCULAR RISK LESS THAN 150 mg/dL LOW RISK 150 TO 199 mg/dL BORDERLINE RISK 200 mg/dL AND GREATER HIGH RISK Performed By: #### L [id number] #### [facility] [address] [place] [address] Magnesium [Mass/Vol] 77 mg/dL Normal 0-160 [facility] Comment on above: Performed By: #### L [id number] #### [facility] [address] [place] [address] Magnesium [Mass/Vol] 34 mg/dL Normal 23-92 [facility] Comment on above: Performed By: #### L [id number] #### [facility] ([facility]) [address] [place] [address] NON HDL CHOL. (LDL+VLDL) 94 Normal [facility] Comment on above: Performed By: #### L [id number] #### [facility] ([facility]) [address] [place] [address] TOTAL VLDL-C 17 mg/dL Normal 0-40 [facility] Comment on above: Performed By: #### L [id number] #### [facility] ([facility]) [address] [place] [address] MAGNESIUMon 07-01-2024 Magnesium [Mass/Vol] 2.0 mg/dL Normal 1.9-2.7 [facility] Comment on above: Performed By: #### L [id number] #### [facility] ([facility]) [address] [place] [address] NURSNOTEon 07-01-2024 NURSNOTE Discharge instructio ns given, reviewed, questions, answered, signed, copy received. Normal [facility] POCT GLUCOSE METER UNSOLICIT ED RESULTSon 07-01-2024 Glucose [Mass/Vol] 124 mg/dL High 70-105 [facility] Comment on above: Order Comment: Waive d Testing in the ED is performed under the ED CLIA certificate #[id number]. Result Comment: [email or web address] Performed By: #### L [id number] #### [facility] ([facility]) [address] [place] [address] Glucose [Mass/Vol] 106 mg/dL High 70-105 [facility] Comment on above: Order Comment: Waive d Testing in the ED is performed under the ED CLIA certificate #[id number]. Result Comment: [email or web address] Performed By: #### L [id number] #### [facility] ([facility]) [address] [place] [address] TROPONIN Ion 07-01-2024 Troponin I.cardiac [Mass/Vol] 0.09 ng/mL High 0.00-0.04 [facility] Comment on above: Performed By: #### L [id number] #### [facility] ([facility]) [address] [place] [address] 30on 06-30-2024 30 The patient is Moderately Stable - Low risk of patient condition declining or worsening The patient's goals for the shift include comfort, rest The clinical goals for the shift include stable vitals, comfort Problem: Pain - Adult Goal: Verbalizes/displays adequate comfort level or baseline comfort level Outcome: Not Progressing Normal [facility] 30 Daily Case Managemen t Update [...] PT Recommendations: OT Recommendations: New Consults: Normal [facility] 30 The patient is Moderately Stable - Low risk of patient condition declining or worsening The patient's goals for the shift include COMFORT The clinical goals for the shift include VSS Over the shift, the patient did not make progress toward the following goals. Barriers to progression include . Recommendations to address these barriers include . Normal [facility] ANTI-XA (HEPARIN LEVEL)on HEPARIN UNFRACTIONATED (U/ML) IN PPP BY CHROMOGENIC METHOD 0.64 IU/mL Normal 0.3-0.7 [facility] Comment on above: Order Comment: Waive d Testing in the ED is performed under the ED CLIA certificate #[id number]. Result Comment: [place] roxaban and Apixaban will interfere with the anti Xa assay used to monitor UFH and LMWH. Performed By: #### L [id number] #### [facility] [address] [place] [address] BASIC METABOLIC PANELon 08-0 Anion gap [Moles/Vol] 11 mmol/L Normal 7-20 [facility] Comment on above: Performed By: #### L [id number] #### [facility] ([facility]) [address] [place] [address] Calcium [Mass/Vol] 8.3 mg/dL Low 8.6-10.3 [facility] Comment on above: Performed By: #### L [id number] #### [facility] [address] [place] [address] Chloride [Moles/Vol] 110 mmol/L High 98-107 [facility] Comment on above: Performed By: #### L [id number] #### [facility] [address] [place] [address] CO2 [Moles/Vol] 26 mmol/L Normal 21-31 [facility] Comment on above: Performed By: #### L [id number] #### [facility] [address] [place] [address] Creatinine [Mass/Vol] 0.81 mg/dL Normal 0.60-1.20 [facility] Comment on above: Performed By: #### L [id number] #### [facility] ([facility]) [address] [address] GLOMERULAR FILTRATION RATE ML/MIN/1.73 SQ M.PREDICTED 83.1 mL/min/1.73m*2 Normal >60.0 [facility] Comment on above: Result Comment: The [facility]???s estimated glomerular filtration rate (eGFR) will [...] individuals. Performed By: #### L [id number] #### [facility] ([facility]) [address] [place] [address] Glucose [Mass/Vol] 110 mg/dL High 70-100 [facility] Comment on above: Performed By: #### L [id number] #### [facility] ([facility]) [address] [place] [address] Potassium [Moles/Vol] 3.7 mmol/L Normal 3.5-5.1 [facility] Comment on above: Performed By: #### L [id number] #### [facility] ([facility]) [address] [place] [address] Sodium [Moles/Vol] 143 mmol/L Normal 136-145 [facility] Comment on above: Performed By: #### L [id number] #### [facility] ([facility]) [address] [place] [address] Urea nitrogen [Mass/Vol] 10 mg/dL Normal 7-25 [facility] Comment on above: Performed By: #### L [id number] #### [facility] ([facility]) [address] [place] [address] UREA NITROGEN/CREATININE (MASS RATIO) IN SER/PLAS 12.3 Normal [facility] Comment on above: Performed By: #### L [id number] #### [facility] ([facility]) [address] [place] [address] CBCon 06-30-2024 Erythrocyte distribution width (RBC) [Ratio] 15.3 % High 11.5-15.0 [facility] Comment on above: Performed By: #### L [id number] #### [facility] ([facility]) [address] [place] [address] ERYTHROCYTE MEAN CORPUSCULAR HEMOGLOBIN CONCENTRATION (G/DL) BY AUTOMATED 31.3 g/dL Low 32.0-35.0 [facility] Comment on above: Performed By: #### L [id number] #### [facility] [address] [place] [address] Hematocrit (Bld) [Volume fraction] 36.7 % Normal 36.0-48.0 [facility] Comment on above: Performed By: #### L [id number] #### [facility] ([facility] [address] [place] [address] Hemoglobin (Bld) [Mass/Vol] 11.5 g/dL Low 12.0-15.0 [facility] Comment on above: Performed By: #### L [id number] #### [facility] ([facility] [address] [place] [address] MCH (RBC) [Entitic mass] 26.9 pg Low 27.0-33.0 [facility] Comment on above: Performed By: #### L [id number] #### [facility] ([facility] [address] [place] [address] MCV (RBC) [Entitic vol] 85.7 fL Normal 82.0-98.0 [facility] Comment on above: Performed By: #### L [id number] #### [facility] ([facility]) [address] [place] [address] PLATELETS (10*3/UL) IN BLOOD AUTOMATED COUNT 243 10*3/uL Normal 150-400 [facility] Comment on above: Performed By: #### L [id number] #### [facility] [address] [place] [address] RBC (Bld) [#/Vol] 4.28 10*6/uL Normal 3.80-5.00 [facility] Comment on above: Performed By: #### L [id number] #### [facility] ([facility] [address] [place] [address] WBC (Bld) [#/Vol] 7.41 10*3/uL Normal 4.00-10.60 [facility] Comment on above: Performed By: #### L [id number] #### [facility] ([facility]) [address] [place] [address] CONSULTon 06-30-2024 CONSULT Cardiology Consult Note Reason for Consult: NSTEMI, transfer from [facility] HPI: Aby Madrigal, a 59 y.o. female patient, is transferred from [facility] for continuity of care. Past medical history includes: HTN History of TIA DMII HLD SURESH Overweight Patient reports that 3 days ago, she woke up in the mid of the night with indigestion, and a feeling fullness, but no pressure like chest pain. She presented to [facility], where she was found to be hypertensive. [...] Value Ventricular Rate 71 Atrial Rate 71 SD Interval 176 QRS DURATION 92 QT Interval 424 QTC CALCULATION(BAZETT) 460 P [place] 52 R-[place] 19 T Wave [place] 164 Impression Normal sinus rhythm Left ventricular hypertrophy with repolarization abnormality ( R in aVL , [place] product ) Abnormal ECG No previous ECGs available Lab Results Component Value Date TROPONINI 0.10 (H) 06/29/2024 No echocardiogram results found for the past 12 months No nuclear medicine results found for the past 12 months Relevant Imaging Results ECG 12 lead Normal sinu (more content not included)... Normal [facility] HPon 06-30-2024 HP H&P reviewed. The patient was examined and there are no changes to the H&P. 59 y.o. year old female with a PMHx significant for DM2, hypertension presents a direct mission from [facility] with a chief complaint of chest [...] to proceed. Signed, Yris Oakley MD PGY-4 Building Construction Ironworker Pager: [phone] [facility] POCT GLUCOSE METER UNSOLICIT ED RESULTSon 06-30-2024 Glucose [Mass/Vol] 170 mg/dL High 70-105 [facility] Comment on above: Order Comment: Waive d Testing in the ED is performed under the ED CLIA certificate #[id number]. Result Comment: [email or web address] Performed By: #### L [id number] #### [facility] ([facility]) [address] [place] [address] Glucose [Mass/Vol] 129 mg/dL High 70-105 [facility] Comment on above: Order Comment: Waive d Testing in the ED is performed under the ED CLIA certificate #[id number]. Result Comment: carolyn tcher Performed By: #### L [id number] #### [facility] ([facility]) [address] [place] [address] Glucose [Mass/Vol] 167 mg/dL High 70-105 [facility] Comment on above: Order Comment: Waive d Testing in the ED is performed under the ED CLIA certificate #[id number]. Result Comment: [email or web address] Performed By: #### L [id number] #### [facility] ([facility]) [address] [facility] [place] [address] TROPONIN Ion 06-30-2024 Troponin I.cardiac [Mass/Vol] 0.07 ng/mL High 0.00-0.04 [facility] Comment on above: Performed By: #### L [id number] #### [facility] ([facility]) [address] [facility] [place] [address] Troponin I.cardiac [Mass/Vol] 0.10 ng/mL High 0.00-0.04 [facility] Comment on above: Performed By: #### L [id number] #### [facility] ([facility]) [address] [place] [address] Troponin I.cardiac [Mass/Vol] 0.11 ng/mL Critically high 0.00-0.04 [facility] Comment on above: Result Comment: CEE CARR INITIAL CRITICAL HIGH; RESPUN AND RETESTED Performed By: #### L [id number] #### [facility] ([facility]) [address] [place] [address] 30on 06-29-2024 30 The patient is Moderately Stable - Low risk of patient condition declining or worsening The patient's goals for the shift include COMFORT The clinical goals for the shift include VSS Normal [facility] APTTon 06-29-2024 ACTIVATED PARTIAL THROMBOPLASTIN TIME IN PPP BY COAGULATION ASSAY 34.5 Seconds Normal 25.0-35.0 [facility] Comment on above: Order Comment: Basel ine aPTT before initiating heparin infusion. Result Comment: Clin ical significance of the APTT is questionable in the presence of heparin. Performed By: #### L [id number] #### [facility] ([facility]) [address] [place] [address] B-TYPE NATRIURETIC PEPTIDEon 06-29-2024 Natriuretic peptide B (Bld) [Mass/Vol] 222 pg/mL High 0-100 [facility] Comment on above: Performed By: #### L [id number] #### [facility] ([facility]) [address] [place] [address] CBC WITH AUTO DIFFERENTIALon 06-29-2024 Basophils (Bld) [#/Vol] 0.05 10*3/uL Normal 0.00-0.20 [facility] Comment on above: Performed By: #### L [id number] #### [facility] ([facility]) [address] [place] [address] Basophils/100 WBC (Bld) 0.6 % Normal 0.0-1.0 [facility] Comment on above: Performed By: #### L [id number] #### [facility] ([facility]) [address] [place] [address] Eosinophils (Bld) [#/Vol] 0.18 10*3/uL Normal 0.00-0.50 [facility] Comment on above: Performed By: #### L [id number] #### [facility] ([facility]) [address] [place] [address] Eosinophils/100 WBC (Bld) 2.1 % Normal 0.0-6.0 [facility] Comment on above: Performed By: #### L [id number] #### [facility] ([facility]) [address] [place] [address] Erythrocyte distribution width (RBC) [Ratio] 14.9 % Normal 11.5-15.0 [facility] Comment on above: Performed By: #### L [id number] #### [facility] ([facility]) [address] [place] [address] ERYTHROCYTE MEAN CORPUSCULAR HEMOGLOBIN CONCENTRATION (G/DL) BY AUTOMATED 32.9 g/dL Normal 32.0-35.0 [facility] Comment on above: Performed By: #### L [id number] #### [facility] ([facility]) [address] [place] [address] Hematocrit (Bld) [Volume fraction] 35.9 % Low 36.0-48.0 [facility] Comment on above: Performed By: #### L [id number] #### [facility] ([facility]) [address] [place] [address] Hemoglobin (Bld) [Mass/Vol] 11.8 g/dL Low 12.0-15.0 [facility] Comment on above: Performed By: #### L [id number] #### [facility] ([facility]) [address] [place] [address] Immature granulocytes (Bld) [#/Vol] 0.03 10*3/uL Normal 0.00-0.20 [facility] Comment on above: Performed By: #### L [id number] #### [facility] [address] [place] [address] Immature granulocytes/100 WBC (Bld) 0.3 % Normal 0.0-1.0 [facility] Comment on above: Performed By: #### L [id number] #### [facility] [address] [place] [address] Lymphocytes (Bld) [#/Vol] 2.02 10*3/uL Normal 1.20-4.00 [facility] Comment on above: Performed By: #### L [id number] #### [facility] ([facility]) [address] [place] [address] Lymphocytes/100 WBC (Bld) 23.5 % Normal 20.0-45.0 [facility] Comment on above: Performed By: #### L [id number] #### [facility] ([facility]) [address] [place] [address] MCH (RBC) [Entitic mass] 27.2 pg Normal 27.0-33.0 [facility] Comment on above: Performed By: #### L [id number] #### [facility] ([facility]) [address] [place] [address] MCV (RBC) [Entitic vol] 82.7 fL Normal 82.0-98.0 [facility] Comment on above: Performed By: #### L [id number] #### [facility] ([facility]) [address] [place] [address] Monocytes (Bld) [#/Vol] 0.56 10*3/uL Normal 0.10-1.00 [facility] Comment on above: Performed By: #### L [id number] #### [facility] ([facility]) [address] [place] [address] Monocytes/100 WBC (Bld) 6.5 % Normal 5.0-12.0 [facility] Comment on above: Performed By: #### L [id number] #### [facility] [address] [place] [address] Neutrophils (Bld) [#/Vol] 5.74 10*3/uL Normal 1.60-7.60 [facility] Comment on above: Performed By: #### L [id number] #### [facility] ([facility]) [address] [place] [address] Neutrophils/100 WBC (Bld) 67.0 % Normal 40.0-72.0 [facility] Comment on above: Performed By: #### L [id number] #### [facility] ([facility]) [address] [place] [address] NRBC (PER 100 WBCS) BY AUTOMATED COUNT 0.0 % Normal 0 [facility] Comment on above: Performed By: #### L [id number] #### [facility] ([facility]) [address] [place] [address] PLATELETS (10*3/UL) IN BLOOD AUTOMATED COUNT 233 10*3/uL Normal 150-400 [facility] Comment on above: Performed By: #### L [id number] #### [facility] ([facility]) [address] [place] [address] RBC (Bld) [#/Vol] 4.34 10*6/uL Normal 3.80-5.00 [facility] Comment on above: Performed By: #### L [id number] #### [facility] ([facility]) [address] [place] [address] WBC (Bld) [#/Vol] 8.58 10*3/uL Normal 4.00-10.60 [facility] Comment on above: Performed By: #### L [id number] #### [facility] ([facility]) [address] [place] [address] COMPREHENSIVE METABOLIC PANE Alec 06-29-2024 Albumin [Mass/Vol] 3.8 g/dL Normal 3.5-5.7 [facility] Comment on above: Performed By: #### L [id number] #### [facility] ([facility]) [address] [place] [address] ALP [Catalytic activity/Vol] 64 U/L Normal 34-104 [facility] Comment on above: Performed By: #### L [id number] #### [facility] [address] [place] [address] ALT [Catalytic activity/Vol] 35 U/L Normal 7-52 [facility] Comment on above: Performed By: #### L [id number] #### [facility] ([facility]) [address] [place] [address] Anion gap [Moles/Vol] 12 mmol/L Normal 7-20 [facility] Comment on above: Performed By: #### L [id number] #### [facility] ([facility]) [address] [place] [address] AST [Catalytic activity/Vol] 21 U/L Normal 13-39 [facility] Comment on above: Performed By: #### L [id number] #### [facility] ([facility]) [address] [place] [address] Bilirubin [Mass/Vol] 0.4 mg/dL Normal 0.3-1.0 [facility] Comment on above: Performed By: #### L [id number] #### [facility] ([facility]) [address] [place] [address] Calcium [Mass/Vol] 8.5 mg/dL Low 8.6-10.3 [facility] Comment on above: Performed By: #### L [id number] #### [facility] ([facility]) [address] [place] [address] Chloride [Moles/Vol] 112 mmol/L High 98-107 [facility] Comment on above: Performed By: #### L [id number] #### [facility] ([facility]) [address] [place] [address] CO2 [Moles/Vol] 22 mmol/L Normal 21-31 [facility] Comment on above: Performed By: #### L [id number] #### [facility] ([facility]) [address] [place] [address] Creatinine [Mass/Vol] 0.92 mg/dL Normal 0.60-1.20 [facility] Comment on above: Performed By: #### L [id number] #### [facility] ([facility]) [address] [place] [address] GLOMERULAR FILTRATION RATE ML/MIN/1.73 SQ M.PREDICTED 71.3 mL/min/1.73m*2 Normal >60.0 [facility] Comment on above: Result Comment: [facility]???s estimated glomerular filtration rate (eGFR) will [...] individuals. Performed By: #### L [id number] #### [facility] ([facility]) [address] [place] [address] Glucose [Mass/Vol] 108 mg/dL High 70-100 [facility] Comment on above: Performed By: #### L [id number] #### [facility] ([facility]) [address] [place] [address] Potassium [Moles/Vol] 3.7 mmol/L Normal 3.5-5.1 [facility] Comment on above: Performed By: #### L [id number] #### [facility] ([facility]) [address] [place] [address] Protein [Mass/Vol] 6.1 g/dL Normal 6.0-8.3 [facility] Comment on above: Performed By: #### L [id number] #### [facility] ([facility]) [address] [place] [address] Sodium [Moles/Vol] 142 mmol/L Normal 136-145 [facility] Comment on above: Performed By: #### L [id number] #### [facility] ([facility]) [address] [place] [address] Urea nitrogen [Mass/Vol] 11 mg/dL Normal 7-25 [facility] Comment on above: Performed By: #### L [id number] #### [facility] ([facility]) [address] [place] [address] UREA NITROGEN/CREATININE (MASS RATIO) IN SER/PLAS 12.0 Normal [facility] Comment on above: Performed By: #### L [id number] #### [facility] ([facility]) [address] [place] [address] MAGNESIUMon 06-29-2024 Magnesium [Mass/Vol] 1.7 mg/dL Low 1.9-2.7 [facility] Comment on above: Performed By: #### L [id number] #### [facility] ([facility]) [address] [place] [address] PHOSPHORUSon 06-29-2024 Magnesium [Mass/Vol] 2.9 mg/dL Normal 2.5-5.0 [facility] Comment on above: Performed By: #### L [id number] #### [facility] ([facility]) [address] [place] [address] PROTIME-INRon 06-29-2024 INR IN PPP BY COAGULATION ASSAY 0.99 Normal 0.90-1.10 [facility] Comment on above: Result Comment: ACCC [...] RANGE. CHEST 1995;108:231S-246S. Performed By: #### L [id number] #### [facility] ([facility]) [address] [place] [address] PROTHROMBIN TIME (PT) IN PPP BY COAGULATION ASSAY 13.1 Seconds Normal 12.3-14.8 [facility] Comment on above: Performed By: #### L [id number] #### [facility] ([facility]) [address] [place] [address] TROPONIN Ion 06-29-2024 Troponin I.cardiac [Mass/Vol] 0.10 ng/mL High 0.00-0.04 [facility] Comment on above: Performed By: #### L [id number] #### [facility] ([facility]) [address] [place] [address] Office Visiton 06-21-2024 Follow-up visit [id number] Aby Madrigal S 1965 Provider Department Center 06/21/2024 GOMEZ KENDALL RIAZ [place] Family History Problem Relation Age of Onset Lung cancer Mother No Known Problems Father Lung cancer Sister Family Status - Relation Status Age at Mother Father Sister Level of Service:65588 SD OFFICE/OUTPATIENT ESTABLISHED MOD MDM 30 MIN Normal [facility] Office Visiton 05-26-2024 Follow-up visit [id number] Aby Madrigal S 1965 Provider Department Center 05/26/2024 BIJAN LAWLER RIAZ [place] Family History Problem Relation Age of Onset Lung cancer Mother No Known Problems Father Lung cancer Sister Family Status - Relation Status Age at Mother Father Sister Level of Service:13545 SD OFFICE/OUTPATIENT NEW MODERATE MDM 45 MINUTES Normal [facility] Outside Colonoscopyon 2022 Outside Colonoscopy [id number] 0CD:127 Normal [facility] Reminderson 11-27-2022 Reminders - From: Na Hayes LPN To: N - Clinical; Sent: 11/27/2022 12:46:10 EST Show up: 10/25/2032 07:00:00 EST Subject: colonoscopy recall Due Date/Time: 11/25/2032 07:00:00 EST Reminder/Recall Patient is due for screening colonoscopy 11/25/2032. Normal [facility] Lab Reportson 11-24-2022 Lab Reports [id number] 0CD:127 Normal [facility] Covid-19 PCR ([facility])on 10-24 SARS-CoV-2 (COVID-19) RNA BECK+probe Ql (Unsp spec) Not detected Normal NOT DETECTED [facility] Comment on above: Result Comment: This test is not yet approved or cleared by the [place] FDA. When there are no FDA-approved or cleared tests available, and other criteria are met, FDA can make tests available under an emergency access mechanism called an Emergency Use Authorization (EUA). The EUA for this test is supported by the [place] Nurse of Health and Human Service's (HHS's) declaration [...] consistent with SARS-CoV-2. Performed By: #### [facility] #### [facility] [address] [place] [address] Dr. Rich Cutler Consent for Procedure/Surger yon 10-07-2022 Consent for Procedure/Surgery [id number] 0CD:127 Normal [facility] Ambulatory Visit Summaryon 1 12-06-2021 Ambulatory [...] for. Allergic conjunctivitis Anticoagulated Kidney stones Normal [facility] VC VENOUS REFLUX NINO LMTon 1 12-02-2021 VC VENOUS REFLUX NINO LMT Patient: ABY MADRIGAL Exam Date: 10/02/2022 : 1965 Gender:F Ordering : DR KENDRA MURILLO . Admission #: [id number] Family : Order #: [id number] CLICK HERE TO VIEW EXAM RADIOLOGY REPORT [...] chronic thrombus visualized Compressibility: Normal Flow: Normal House Parent: Dist/med calf 3.3mm with 0s reflux. Tech Note: Incompetent SFJ and GSV. Patent varicose vein mid/med calf 2.9mm with 0s reflux. Patent varicose vein prox/post calf 3.8mm with 0s reflux. Patent varicose vein dist/med thigh 3.8mm with 2.0s reflux. CONCLUSION: 1. Mild right and pilk-nz-vocxjrqh left great saphenous vein venous insufficiency with dilatation 2. Left saphenous popliteal junction reflux 3. Mild left anterior accessory saphenous vein venous insufficiency without dilatation 4. Small bilateral incompetent varicose veins Dictated by: Adelia Lezama MD on 10/02/2022 at 13:36 Approved by: Adelia Lezama MD on 10/02/2022 at 13:52 Normal [facility] ECHOCARDIO M/2D COMPLETEon 1 11-30-2021 ECHOCARDIO M/2D COMPLETE Patient: ABY MADRIAGL Exam Date: 09/30/2022 : 1965 Gender:F Ordering : DR KENDRA MURILLO . Admission #: [id number] Family : Order #: [id number] CLICK HERE TO VIEW EXAM ECHOCARDIOGRAM REPORT [...] on 09/30/2022 at 18:37 Normal [facility] BNPon 09-24-2022 Natriuretic peptide B (Bld) [Mass/Vol] 501.0 pg/mL Normal <=900.0 [facility] Comment on above: Performed By: #### C VDTBH #### [facility] [address] [place] [address] Dr. Rich Cutler CBC AUTO DIFFon 09-24-2022 BASO # 0.1 103/ul Normal 0.0-0.1 [facility] Comment on above: Performed By: #### C VDTBH #### [facility] [address] [place] [address] Dr. Rich Cutler Basophils/100 WBC (Bld) 0.8 % Normal 0.2-2.0 [facility] Comment on above: Performed By: #### C VDTBH #### [facility] [address] [place] [address] Dr. Rich Cutler EO # 0.3 103/ul Normal 0.0-0.7 [facility] Comment on above: Performed By: #### C VDTBH #### [facility] [address] [place] [address] Dr. Rich Cutler Eosinophils/100 WBC (Bld) 3.4 % Normal 0.9-7.0 [facility] Comment on above: Performed By: #### C VDTBH #### [facility] [address] [place] [address] Dr. Rich Cutler Erythrocyte distribution width (RBC) [Ratio] 13.3 % Normal 11.0-15.0 [facility] Comment on above: Performed By: #### C VDTBH #### [facility] [address] [place] [address] Dr. Rich Cutler Hematocrit (Bld) [Volume fraction] 40.5 % Normal 36.0-48.0 [facility] Comment on above: Performed By: #### C VDTBH #### [facility] [address] [place] [address] Dr. Rich Cutler Hemoglobin (Bld) [Mass/Vol] 13.1 g/dL Normal 12.0-16.0 [facility] Comment on above: Performed By: #### C VDTBH #### [facility] [address] [place] [address] Dr. Rich Cutler IG # 0.02 10e3/ul Normal 0.00-0.03 [facility] Comment on above: Performed By: #### C VDTBH #### [facility] [address] [place] [address] Dr. Rich Cutler IG % 0.3 % Normal 0.0-0.5 [facility] Comment on above: Performed By: #### C VDTBH #### [facility] [address] [place] [address] Dr. Rich Cutler LYMPH # 2.7 103/ul Normal 1.2-3.8 [facility] Comment on above: Performed By: #### C VDTBH #### [facility] [address] [place] [address] Dr. Rich Cutler Lymphocytes/100 WBC (Bld) 35.4 % Normal 20.5-60.0 [facility] Comment on above: Performed By: #### C VDTBH #### [facility] [address] [place] [address] Dr. Rich Cutler MANUAL DIFF REQ NO Normal [facility] Comment on above: Performed By: #### C VDTBH #### [facility] [address] [place] [address] Dr. Rich Cutler MCH (RBC) [Entitic mass] 28.2 pg Normal 26.7-34.0 [facility] Comment on above: Performed By: #### C VDTBH #### [facility] [address] [place] [address] Dr. Rich Cutler MCHC (RBC) [Mass/Vol] 32.3 g/dL Normal 29.9-35.2 [facility] Comment on above: Performed By: #### C VDTBH #### [facility] [address] [place] [address] Dr. Rich Cutler MCV (RBC) [Entitic vol] 87.3 fL Normal 81.0-99.0 [facility] Comment on above: Performed By: #### C VDTBH #### [facility] [address] [place] [address] Dr. Rich Cutler MONO # 0.5 103/ul Normal 0.3-0.8 [facility] Comment on above: Performed By: #### C VDTBH #### [facility] [address] [place] [address] Dr. Rich Cutler Monocytes/100 WBC (Bld) 6.5 % Normal 1.7-12.0 [facility] Comment on above: Performed By: #### C VDTBH #### [facility] [address] [place] [address] Dr. Rich Cutler NEUT # 4.1 103/ul Normal 1.4-6.5 [facility] Comment on above: Performed By: #### C VDTBH #### [facility] [address] [place] [address] Dr. Rich Cutler Neutrophils/100 WBC (Bld) 53.6 % Normal 43.0-75.0 [facility] Comment on above: Performed By: #### C VDTBH #### [facility] [address] [place] [address] Dr. Rich Cutler Platelet mean volume (Bld) [Entitic vol] 10.3 fL Normal 9.5-13.5 [facility] Comment on above: Performed By: #### C VDTBH #### [facility] [address] [place] [address] Dr. Rich Cutler PLT 283 103/ul Normal 150-450 [facility] Comment on above: Performed By: #### C VDTBH #### [facility] [address] [place] [address] Dr. Rich Cutler RBC 4.64 106/ul Normal 4.20-5.40 [facility] Comment on above: Performed By: #### C VDTBH #### [facility] [address] [place] [address] Dr. Rich Cutler WBC 7.6 103/ul Normal 4.0-11.0 [facility] Comment on above: Performed By: #### C VDTBH #### [facility] [address] [place] [address] Dr. Rich Cutler INSULINon 09-24-2022 Insulin 15.1 uIU/mL Normal 2.6-24.9 [facility] Comment on above: Performed By: #### C VDTBH #### [facility] [address] [place] [address] Dr. Rich Cutler PROF 14(COMP METB)on 022 Albumin [Mass/Vol] 3.5 g/dL Normal 3.4-5.0 [facility] Comment on above: Performed By: #### C VDTBH #### [facility] [address] [place] [address] Dr. Rich Cutler Albumin/Globulin [Mass ratio] 1.0 {ratio} Normal [facility] Comment on above: Performed By: #### C VDTBH #### [facility] [address] [place] [address] Dr. Rich Cutler ALP [Catalytic activity/Vol] 91 U/L Normal 46-116 [facility] [facility] Comment on above: Performed By: #### C VDTBH #### [facility] [address] [place] [address] Dr. Rich Cutler ALT [Catalytic activity/Vol] 47 U/L Normal 14-59 [facility] Comment on above: Performed By: #### C VDTBH #### [facility] [address] [place] [address] Dr. Rich Cutler Anion gap [Moles/Vol] 11.7 mmol/L Normal [facility] Comment on above: Performed By: #### C VDTBH #### [facility] [address] [place] [address] Dr. Rich Cutler AST [Catalytic activity/Vol] 24 U/L Normal 15-37 [facility] Comment on above: Performed By: #### C VDTBH #### [facility] [address] [address] [address] Rich Cutler Bilirubin [Mass/Vol] 0.2 mg/dL Normal 0.2-1.0 [facility] Comment on above: Performed By: #### C VDTBH #### [facility] [address] [address] [address] Rich Cutler Calcium [Mass/Vol] 8.9 mg/dL Normal 8.5-10.1 [facility] Comment on above: Performed By: #### C VDTBH #### [facility] [address] [address] [address] Rich Cutler Chloride [Moles/Vol] 105 mmol/L Normal 98-107 [facility] Comment on above: Performed By: #### C VDTBH #### [facility] [address] [address] [address] Rich Cutler CO2 [Moles/Vol] 28.1 mmol/L Normal 21.0-32.0 [facility] Comment on above: Performed By: #### C VDTBH #### [facility] [address] [address] [address] Rich Cutler Creatinine [Mass/Vol] 1.13 mg/dL Critically high 0.55-1.02 [facility] Comment on above: Performed By: #### C VDTBH #### [facility] [address] [address] [address] Rich Cutler EGFR-AF TURKMEN 60 mL/min/1.73m2 Normal >=60 [facility] Comment on above: Performed By: #### C VDTBH #### [facility] [address] [address] [address] Rich Cutler EGFR-NON AF TURKMEN 49 mL/min/1.73m2 Critically low >=60 [facility] Comment on above: Performed By: #### C VDTBH #### [facility] [address] [address] [address] Rich Cutler Globulin (S) [Mass/Vol] 3.5 g/dL Normal [facility] Comment on above: Performed By: #### C VDTBH #### [facility] [address] [address] [address] Rich Cutler Glucose [Mass/Vol] 119 mg/dL Critically high 74-[address] [facility] Comment on above: Performed By: #### C VDTBH #### [facility] [address] [place] [address] Dr. Rich Cutler Potassium [Moles/Vol] 3.8 mmol/L Normal 3.5-5.1 [facility] Comment on above: Performed By: #### C VDTBH #### [facility] [address] [place] [address] Dr. Rich Cutler Protein [Mass/Vol] 7.0 g/dL Normal 6.4-8.2 [facility] Comment on above: Performed By: #### C VDTBH #### [facility] [address] [place] [address] Dr. Rich Cutler Sodium [Moles/Vol] 141 mmol/L Normal 136-145 [facility] Comment on above: Performed By: #### C VDTBH #### [facility] [address] [place] [address] Dr. Rich Cutler Urea nitrogen [Mass/Vol] 16.0 mg/dL Normal 7.0-18.0 [facility] Comment on above: Performed By: #### C VDTBH #### [facility] [address] [place] [address] Dr. Rich Cutler Urea nitrogen/Creatinine [Mass ratio] 14.2 mg/mg Normal [facility] Comment on above: Performed By: #### C VDTBH #### [facility] [address] [place] [address] Dr. Rich Cutler TROPONIN, HIGH SENSITIVITYon 09-24-2022 HSTROP 10.6 pg/mL Normal 4.0-51.3 [facility] Comment on above: Result Comment: CUT- OFF POINTS HAVE BEEN ESTABLISHED BASED ON THE FOURTH UNIVERSAL DEFINITIONS OF MYOCARDIAL INFARCTION. THE UPPER REFERENCE LIMIT (URL) OF TROPONIN, DEFINED THE 99TH PERCENTILE OF cTnI DISTRIBUTION IN A REFERENCE POPULATION, HAS BEEN CONFIRMED THE DECISION THRESHOLD FOR PR DIAGNOSIS. Performed By: #### C VDTB #### [facility] [address] [place] [address] Dr. Rich Cutler XR CHEST 1 Von [...] HUMPHRIES Date: 2022-09-24 04:08 Normal [facility] CBC AUTO DIFFon 09-23-2022 BASO # 0.1 103/ul Normal 0.0-0.1 [facility] Comment on above: Performed By: #### C BC #### [facility] [address] [place] [address] Dr. Rich Cutler Basophils/100 WBC (Bld) 0.8 % Normal 0.2-2.0 [facility] Comment on above: Performed By: #### C BC #### [facility] [address] [place] [address] Dr. Rich Cutler EO # 0.2 103/ul Normal 0.0-0.7 [facility] Comment on above: Performed By: #### C BC #### [facility] [address] [place] [address] Dr. Rich Cutler Eosinophils/100 WBC (Bld) 3.5 % Normal 0.9-7.0 [facility] Comment on above: Performed By: #### C BC #### [facility] [address] [place] [address] Dr. Rich Cutler Erythrocyte distribution width (RBC) [Ratio] 13.4 % Normal 11.0-15.0 [facility] Comment on above: Performed By: #### C BC #### [facility] [address] [place] [address] Dr. Rich Cutler Hematocrit (Bld) [Volume fraction] 42.3 % Normal 36.0-48.0 [facility] Comment on above: Performed By: #### C BC #### [facility] [address] [place] [address] Dr. Rich Cutler Hemoglobin (Bld) [Mass/Vol] 13.4 g/dL Normal 12.0-16.0 [facility] Comment on above: Performed By: #### C BC #### [facility] [address] [place] [address] Dr. Rich Cutler IG # 0.03 10e3/ul Normal 0.00-0.03 [facility] Comment on above: Performed By: #### C BC #### [facility] [address] [place] [address] Dr. Rich Cutler IG % 0.5 % Normal 0.0-0.5 [facility] Comment on above: Performed By: #### C BC #### [facility] [address] [place] [address] Dr. Rich Cutler LYMPH # 2.9 103/ul Normal 1.2-3.8 [facility] Comment on above: Performed By: #### C BC #### [facility] [address] [place] [address] Dr. Rich Cutler Lymphocytes/100 WBC (Bld) 44.0 % Normal 20.5-60.0 [facility] Comment on above: Performed By: #### C BC #### [facility] [address] [place] [address] Dr. Rich Cutler MANUAL DIFF REQ NO Normal [facility] Comment on above: Performed By: #### C BC #### [facility] [address] [place] [address] Dr. Rich Cutler MCH (RBC) [Entitic mass] 28.4 pg Normal 26.7-34.0 [facility] Comment on above: Performed By: #### C BC #### [facility] [address] [place] [address] Dr. Rich Cutler MCHC (RBC) [Mass/Vol] 31.7 g/dL Normal 29.9-35.2 [facility] Comment on above: Performed By: #### C BC #### [facility] [address] [place] [address] Dr. Rich Cutler MCV (RBC) [Entitic vol] 89.6 fL Normal 81.0-99.0 [facility] Comment on above: Performed By: #### C BC #### [facility] [address] [place] [address] Dr. Rich Cutler MONO # 0.4 103/ul Normal 0.3-0.8 [facility] Comment on above: Performed By: #### C BC #### [facility] [address] [place] [address] Dr. Rich Cutler Monocytes/100 WBC (Bld) 6.6 % Normal 1.7-12.0 [facility] Comment on above: Performed By: #### C BC #### [facility] [address] [place] [address] Dr. Rich Cutler NEUT # 2.9 103/ul Normal 1.4-6.5 [facility] Comment on above: Performed By: #### C BC #### [facility] [address] [place] [address] Dr. Rich Cutler Neutrophils/100 WBC (Bld) 44.6 % Normal 43.0-75.0 [facility] Comment on above: Performed By: #### C BC #### [facility] [address] [place] [address] Dr. Rich Cutler Platelet mean volume (Bld) [Entitic vol] 11.0 fL Normal 9.5-13.5 [facility] Comment on above: Performed By: #### C BC #### [facility] [address] [place] [address] Dr. Rich Cutler PLT 272 103/ul Normal 150-450 [facility] Comment on above: Performed By: #### C BC #### [facility] [address] [place] [address] Dr. Rich Cutler RBC 4.72 106/ul Normal 4.20-5.40 [facility] Comment on above: Performed By: #### C BC #### [facility] [address] [place] [address] Dr. Rich Cutler WBC 6.5 103/ul Normal 4.0-11.0 [facility] Comment on above: Performed By: #### C BC #### [facility] [address] [place] [address] Dr. Rich Cutler FREE THYROXINE INDEX T7on FTI 2.16 Normal 1.30-4.50 [facility] Comment on above: Performed By: #### L IPID, TSH, T7, CMP #### [facility] [address] [place] [address] Dr. Rich Cutler T3U 30.0 % Normal 30.0-39.0 [facility] Comment on above: Performed By: #### L IPID, TSH, T7, CMP #### [facility] [address] [place] [address] Dr. Rich Cutler T4 [Mass/Vol] 7.20 ug/dL Normal 4.80-13.90 [facility] Comment on above: Performed By: #### L IPID, TSH, T7, CMP #### [facility] [address] [place] [address] Dr. Rich Cutler GLYCOHEMOGLOBIN A1Con 2021 ADA RECOMMENDATION SEE BELOW Normal [facility] Comment on above: Result Comment: ADA RECOMMENDED LIMIT 4.0 - 6.0 ADA THERAPEUTIC TARGET < 7.0 ACTION SUGGESTED > 7.0 Performed By: #### A 1C #### [facility] [address] [place] [address] Dr. Rich Cutler Glucose [Mass/Vol] 128 mg/dL Normal [facility] Comment on above: Performed By: #### A 1C #### [facility] [address] [place] [address] Dr. Rich Cutler HbA1c (Bld) [Mass fraction] 6.1 % Normal 4.5-6.2 [facility] Comment on above: Performed By: #### A 1C #### [facility] [address] [address] [address] Rich Cutler IRONon 09-23-2022 Iron [Mass/Vol] 64.0 ug/dL Normal 50.0-170.0 [facility] Comment on above: Performed By: #### C VDTBH #### [facility] [address] [address] [address] Rich Cutler LIPID PROFILEon 09-23-2022 CHOL-HDL RATIO NORM SEE BELOW Normal [facility] Comment on above: Result Comment: 3.3 - 4.4 LOW RISK 4.4 - 7.1 AVERAGE RISK 7.1 - 11.0 MODERATE RISK >11.0 HIGH RISK Performed By: #### L IPID, TSH, T7, CMP #### [facility] [address] [address] [address] Rich Cutler Cholesterol [Mass/Vol] 237 mg/dL Critically high <=200 [facility] Comment on above: Performed By: #### L IPID, TSH, T7, CMP #### [facility] [address] [address] [address] Rich Cutler Cholesterol in HDL [Mass/Vol] 44 mg/dL Normal 40-60 [facility] Comment on above: Performed By: #### L IPID, TSH, T7, CMP #### [facility] [address] [address] [address] Rich Cutler Cholesterol in LDL [Mass/Vol] 172.2 mg/dL Normal [facility] Comment on above: Performed By: #### L IPID, TSH, T7, CMP #### [facility] [address] [address] [address] Rich Cutler Cholesterol.total/C holesterol in HDL [Mass ratio] 5.4 {ratio} Normal [facility] Comment on above: Performed By: #### L IPID, TSH, T7, CMP #### [facility] [address] [address] [address] Rich Cutler HDL NORMAL > or = 60 mg/dl - LO W CARDIOVASCULAR RISK <40 mg/dl - HIGH CARDIOVASCULAR RISK Normal [facility] Comment on above: Performed By: #### L IPID, TSH, T7, CMP #### [facility] [address] [address] [address] Rich Cutler LDL CALC NORMAL SEE BELOW Normal [facility] Comment on above: Result Comment: <100 mg/dl OPTIMAL 100 - 129 mg/dl NEAR OR ABOVE OPTIMAL 130 - 159 mg/dl BORDERLINE HIGH 160 - 189 mg/dl HIGH >190 mg/dl VERY HIGH Performed By: #### L IPID, TSH, T7, CMP #### [facility] [address] [address] [address] Rich Cutler Triglyceride [Mass/Vol] 104 mg/dL Normal <=150 [facility] Comment on above: Performed By: #### L IPID, TSH, T7, CMP #### [facility] [address] [address] [address] Rich Cutler VLDL CALC 20.8 mg/dL Normal [facility] Comment on above: Performed By: #### L IPID, TSH, T7, CMP #### [facility] [address] [place] [address] Dr. Rich Cutler PROF 14(COMP METB)on 022 Albumin [Mass/Vol] 3.5 g/dL Normal 3.4-5.0 [facility] Comment on above: Performed By: #### L IPID, TSH, T7, CMP #### [facility] [address] [address] [address] Rich Cutler Albumin/Globulin [Mass ratio] 0.9 {ratio} Normal [facility] Comment on above: Performed By: #### L IPID, TSH, T7, CMP #### [facility] [address] [address] [address] Rich Cutler ALP [Catalytic activity/Vol] 93 U/L Normal 46-116 [facility] Comment on above: Performed By: #### L IPID, TSH, T7, CMP #### [facility] [address] [address] [address] Rich Cutler ALT [Catalytic activity/Vol] 44 U/L Normal 14-59 [facility] Comment on above: Performed By: #### L IPID, TSH, T7, CMP #### [facility] [address] [address] [address] Rich Cutler Anion gap [Moles/Vol] 8.5 mmol/L Normal [facility] Comment on above: Performed By: #### L IPID, TSH, T7, CMP #### [facility] [address] [place] [address] Dr. Rich Cutler AST [Catalytic activity/Vol] 26 U/L Normal 15-37 [facility] Comment on above: Performed By: #### L IPID, TSH, T7, CMP #### [facility] [address] [place] [address] Dr. Rich Cutler Bilirubin [Mass/Vol] 0.3 mg/dL Normal 0.2-1.0 [facility] Comment on above: Performed By: #### L IPID, TSH, T7, CMP #### [facility] [address] [place] [address] Dr. Rich Cutler Calcium [Mass/Vol] 9.0 mg/dL Normal 8.5-10.1 [facility] Comment on above: Performed By: #### L IPID, TSH, T7, CMP #### [facility] [address] [place] [address] Dr. Rich Cutler Chloride [Moles/Vol] 106 mmol/L Normal 98-107 [facility] Comment on above: Performed By: #### L IPID, TSH, T7, CMP #### [facility] [address] [place] [address] Dr. Rich Cutler CO2 [Moles/Vol] 31.0 mmol/L Normal 21.0-32.0 [facility] Comment on above: Performed By: #### L IPID, TSH, T7, CMP #### [facility] [address] [place] [address] Dr. Rich Cutler Creatinine [Mass/Vol] 1.11 mg/dL Critically high 0.55-1.02 [facility] Comment on above: Performed By: #### L IPID, TSH, T7, CMP #### [facility] [address] [place] [address] Dr. iRch Cutler EGFR-AF TURKMEN >60 Normal >=60 [facility] Comment on above: Performed By: #### L IPID, TSH, T7, CMP #### [facility] [address] [place] [address] Dr. Rich Cutler EGFR-NON AF TURKMEN 50 mL/min/1.73m2 Critically low >=60 [facility] Comment on above: Performed By: #### L IPID, TSH, T7, CMP #### [facility] [address] [place] [address] Dr. Rich Cutler Globulin (S) [Mass/Vol] 3.7 g/dL Normal [facility] Comment on above: Performed By: #### L IPID, TSH, T7, CMP #### [facility] [address] [place] [address] Dr. Rich Cutler Glucose [Mass/Vol] 121 mg/dL Critically high 74-106 [facility] Comment on above: Performed By: #### L IPID, TSH, T7, CMP #### [facility] [address] [place] [address] Dr. Rich Cutler Potassium [Moles/Vol] 4.5 mmol/L Normal 3.5-5.1 [facility] Comment on above: Performed By: #### L IPID, TSH, T7, CMP #### [facility] [address] [place] [address] Dr. Rich Cutler Protein [Mass/Vol] 7.2 g/dL Normal 6.4-8.2 [facility] Comment on above: Performed By: #### L IPID, TSH, T7, CMP #### [facility] [address] [place] [address] Dr. Rich Cutler Sodium [Moles/Vol] 141 mmol/L Normal 136-145 [facility] Comment on above: Performed By: #### L IPID, TSH, T7, CMP #### [facility] [address] [place] [address] Dr. Rich Cutler Urea nitrogen [Mass/Vol] 16.0 mg/dL Normal 7.0-18.0 [facility] Comment on above: Performed By: #### L IPID, TSH, T7, CMP #### [facility] [address] [address] [address] Rich Cutler Urea nitrogen/Creatinine [Mass ratio] 14.4 mg/mg Normal [facility] Comment on above: Performed By: #### L IPID, TSH, T7, CMP #### [facility] [address] [address] [address] Rich Cutler TSHon 09-23-2022 TSH 3.915 uIU/mL Critically high 0.358-3.740 [facility] Comment on above: Performed By: #### L IPID, TSH, T7, CMP #### [facility] [address] [address] [address] Rich Cutler Physician Referralon 022 Physician Referral [phone] [id number] Normal [facility] Lipid Panelon 10-07-2021 Cholesterol [Mass/Vol] 205 mg/dL High 140-200 [facility] Comment on above: Result Comment: Chol less than 200 mg/dl low risk Chol 201-239 mg/dl borderline risk Chol 240 mg/dl and greater high risk Performed By: #### L IPID, [id number], TSH3 wRFLX #### [facility] [address] [id number] [place] Cholesterol in HDL [Mass/Vol] 25 mg/dL Low 35-85 [facility] Comment on above: Result Comment: HDL CHOL ATP-III CLASSIFICATION Cardiovascular Risk HDL > or equal to 60 mg/dL LOW HDL < 40 mg/dL HIGH Performed By: #### L IPID, [id number], TSH3 wRFLX #### [facility] [address] [place] [address] [place] Cholesterol.total/C holesterol in HDL [Mass ratio] 8.2 {ratio} Normal <5.0 [facility] Comment on above: Performed By: #### L IPID, [id number], TSH3 wRFLX #### [facility] [address] LDL Cholesterol,Calcula coby 160 mg/dL High 0-100 [facility] Comment on above: Result Comment: LDL ATP III CLASSIFICATION LDL less than 100 mg/dL Optimal LDL 100-129 mg/dL Near or above optimal LDL 130-159 mg/dL Borderline high LDL 160-189 mg/dL High LDL greater than 189 mg/dL Very high Performed By: #### L IPID, [id number], TSH3 wRFLX #### [facility] [address] Triglyceride w/Reflex 100 mg/dL Normal 35-149 [facility] Comment on above: Result Comment: TRIG ATP III CLASSIFICATION TRIG less than 150 mg/dL Normal TRIG 150-199 mg/dL Borderline high TRIG 200-500 mg/dL High TRIG greater than 500 mg/dL Very high Standard traceable to the Center for Disease Conrtrol and Prevention (CDC) test method. Performed By: #### L IPID, [id number], TSH3 wRFLX #### [facility] [address] [place] [address] VLDL CHOLESTEROL 20 mg/dL Normal [facility] Comment on above: Performed By: #### L IPID, [id number], TSH3 wRFLX #### [facility] [address] [place] [address] Thyroid Stim Hormone w/Rflxo n 10-07-2021 Thyroid Stim Hormone w/Rflx 3.27 u[iU]/mL Normal 0.45-5.33 [facility] Comment on above: Performed By: #### L IPID, [id number], TSH3 wRFLX #### [facility] [address] [place] [address] Vitamin D 25 Hydroxy Totalon 10-07-2021 Vitamin D 25 Hydroxy Total 26.5 ng/mL Low 30-100 [facility] Comment on above: Result Comment: JACKELINE MIN D STATUS 25(OH)VITAMIN D RANGE (ng/mL) Deficient <20 Insufficient 20 to <30 Sufficient 30 to 100 Reference: Lanny MF,Gino WILLIAMSON, Dyan VALENZUELA, et al. Evaluation,treatment, and prevention of vitamin D deficiency; an Endocrine Society clinical practice guideline. JCEM. 2011 May; 96(7):1911-30. PERFORMED BY: [facility] [address] [place] [address] PATHOLOGIST ALMOND BLANCHER OPERATOR SILVESTRE SCHULER M.D. Performed By: #### L IPID, [id number], TSH3 wRFLX #### [facility] [address] [id number] [facility] Vital Signs Date Time Vital Sign Value Performing Clinician Faci lity 10-06-2022 15:36-0500 Blood Pressure Location [facility] [place] 10-06-2022 15:36-0500 Diastolic blood pressure 86 mm[Hg] Umm NILL [employer] [facility] [place] 10-06-2022 15:36-0500 Heart rate 72 /min Umm NILL [facility] [place] 10-06-2022 15:36-0500 Respiratory rate 16 /min Umm NILL [employer] [facility] [place] 10-06-2022 15:36-0500 Systolic blood pressure 126 mm[Hg] Umm NILL [employer] [facility] [place] Encounters Encounter Date Encounter Type Care Provider Facility Start: 07-18-[address] [facility] Start: 07-18-2024 End: 07-18-2024 Emergency department patient visit HERMINIA LI [facility] Start: 07-18-2024 End: 07-18-[address] [facility] Start: 07-11-2024 Evaluation and manag ement of inpatient [facility] Start: 07-11-2024 Evaluation and manag ement of inpatient [facility] Start: 07-11-2024 Emergency department patient visit FEDERICA ANDERSON [facility] Start: 07-11-2024 End: 07-12-2024 Evaluation and management of inpatient JOSE BETANCUR [facility] Start: 07-10-2024 End: 07-10-2024 ambulatory [facility] Start: 06-30-2024 Evaluation and manag ement of inpatient [facility] Start: 06-30-2024 Evaluation and manag ement of inpatient [facility] Start: 06-29-2024 End: 07-01-2024 Evaluation and management of inpatient KENDRA MURILLO [facility] Start: 06-21-2024 End: 06-21-2024 ambulatory GOMEZ CHANGMONA [facility] Start: 05-26-2024 End: 05-26-2024 ambulatory [facility] Start: 11-26-2022 Encounter for preprocedural laboratory examination DR UMM MARTÍNEZ . [facility] Start: 11-25-2022 End: 11-26-2022 ambulatory Umm MARTÍNEZ Facility:CD:[id number] Start: 11-20-2022 End: 11-21-[address] UMM MARTÍNEZ . Facility:[facility] Start: 11-20-2022 End: 11-21-2022 Encounter for preprocedural laboratory examination DR UMM MARTÍNEZ . Facility:[facility] Start: 10-06-2022 End: 10-07-2022 ambulatory Umm MARTÍNEZ Facility:[facility] Start: 10-06-2022 End: 10-06-2022 Patient encounter procedure Umm MARTÍNEZ [facility] [place] Start: 10-02-2022 End: 10-03-[address] KENDRA MURILLO . Facility:[facility] Start: 09-30-2022 End: 10-01-[address] KENDRA MURILLO . Facility:[facility] Start: 09-28-2022 Encounter for genera l adult medical examination without abnormal findings DR KENDRA MURILLO . [facility] Start: 09-24-2022 End: 09-24-[address] [...] mRNA BNT-162b2 vax Umm NILL [facility] [place] 03-11-2021 SARS-CoV-2 (COVID-19 ) mRNA BNT-162b2 vax Umm NILL [facility] [place] Payers Date Payer Category Payer Medicaid [id number] 1965 Unknown [id number] 2.16.8 [id number] 1965 Unknown [id number] 2.16.8 [id number] 1965 Unknown [id number] 2.16.84 [id number] 1965 Unknown [id number] 2.16.84 [id number] 1965 Unknown [id number] 2.16.84 [id number] 1965 Unknown [id number] 2.16.84 [id number] 1965 Unknown [id number] 2.16.84 [id number] 1965 Unknown [id number] 2.16.84 [id number] 1965 Unknown [id number] 2.16.84 [id number] 1960 Self-pay [id number] 1960 Unknown [id number] Social History Date Type Detail Facility Start: 10-06-2022 Tobacco smoking status Ex-smoker (fi nding) [facility] [place] Tobacco smoking status Never [facility] [place] Sex Assigned At Female [facility] Functional Status Date Assessment Result Facility 10-06-2022 Functional Status N/A [facility] Clinical Notes 10-11-2022 to 07-18-2024 Note [...] metoprolol - CT A/P Jun 2019 in [place], [place] performed for abd pain, incidentally detected [...] History: Diagnosis Date Abnormal ECG Diabetes mellitus ([facility]) Hyperlipidemia Hypertension Obstructive sleep apnea Panic attacks Stroke ([facility]) Past Surgical History: Procedure Laterality [...] Rfl: carvedilol (C (more content not included)... 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 Resides at home alone. Discharge plan is home. [facility] 07-18-2024 Note Patient sent to ED f or hypotension and dizziness/lightheadedness [facility] 07-12-2024 Note Hospital Medicine Discharge Summary Final Discharge Diagnosis: NSTEMI Admission Diagnosis: Hypokalemia [E87.6] NSTEMI (non-ST elevated myocardial infarction) (CMS/HCC) [I21.4] Hypertensive urgency [I16.0] Adenoma of left adrenal gland [D35.02] Resistant hypertension [I1A.0] Atherosclerosis of [place] coronary artery of [place] heart without angina pectoris [I25.10] Coronary artery disease involving [place] coronary artery of [place] heart with unstable angina pectoris ([facility]) [I25.110] Type 2 diabetes mellitus without complication, without long-term current use of insulin ([facility]) [E11.9] Hospital course: 59yoF with CAD s/p LAD SARKIS 11 days ago who was admitted to [facility] on 07/11 for chest pain. patient initially presented to [facility] for uncomfortable feeling in her chest and was found to have elevated troponins and new ischemic changes on EKG. Infusion and cardiology was consulted transferred to [facility] for further evaluation. Initially the patient had blood pressures up to 192/65 for which home medications were restarted. Troponins at [facility] were negative and there were no EKG changes concerning for ischemia. Echo was performed which showed EF 70 to 75%. she was cleared from cardiology for discharge and had resolved. Surgical, Invasive or Diagnostic Procedures Done During Admission: None Consultations During Admission: Cardiology Dear Dr. Lidia MD, [facility] is advised to follow up with you [...] Center 07/18/2024 8:20 AM Feng Christie MD [facility] ENDOCR [facility] 07/20/2024 1:00 PM Richa Grace MD [facility] ONC [facility] 09/05/2024 1:00 PM Bijan Mitchell MD [facility] Your medication list START taking [...] Your Medications These medications were sent to [facility]/pharmacy #[id number] [facility] [address] [address] isosorbide mononitrate ER 60 mg 24 hr [...] activity In process (more content not included)... [facility] 07-11-2024 Note 07/11/24 1817 Financial Resource [...] place to sleep or slept in a half-way (including now)? N Transportation Needs In the [...] than 3 How often do you attend pentecostalism or faith services? Never Do you belong to any clubs or organizations such as pentecostalism groups, unions, fraternal or athletic groups, or [...] In the past 12 months has the [employer], gas, oil, or water [employer] [facility] threatened to shut off services in your home? 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 Reason Psychosocial assessment Patient Information Primary Caregiver Self Accompanied by/Relationship Daughter (Rosita); Guyyehgm-xg-mvt (Yesy) Activities of Daily Living Assistive Device Not applicable Living Arrangement (Current/Prior to Hospitalization) Private residence (Lives at home by herself) Ambulation Independent Dressing Independent Feeding Independent Behavior Oriented (A&Ox4) Communication Can write;Talks;Understands speaking;Understands Divehi;Reads Income Information Income Source Unemployed (receives survivor benefits) Discharge Planning Support Systems Children;Family members (daughter, rebslemk-al-wwa, son) Type of Residence Private residence Will patient need Precert for Post Acute needs? No Patient's goal for discharge Home Does the patient need discharge transport arranged? No Completed social work assessment and SDoH screening. Patient was A&Ox4 at this time. Patient's daughter, Rosita, and patient's ilgqoajq-sm-sai, Yesy, were currently present at bedside. Patient reported that she lives at home by herself and she identified her support system as her daughter, Rosita, her jtzhgvil-wp-jst, Yesy, and her son, Elie. Patient endorsed [...] any alcohol consumption or recreational drug use. [facility] 07-11-2024 Note Hospital Medicine History and Physical 07/11/2024 12:19 PM THE HOSPITALIST TEAM PREFERS TO USE [employer] CHAT FOR COMMUNICATION 7AM-7PM. IF I DO NOT RESPOND WITHIN 15 MINUTES, PLEASE PAGE ME/CALL THROUGH THE CONTAINER PACKER OPERATOR. FROM 7PM-7AM, PLEASE PAGE [phone](COVR) Chief Complaint Chief Complaint Patient presents with [...] s/p stent placement 11 days ago at [facility] presented to ER as a transfer from [facility] for NSTEMI. Patient states that last [...] Noted Hypokalemia 07/11/2024 Coronary artery disease involving [place] coronary artery of [place] heart with unstable angina pectoris ([facility] 07/11/2024 Anxiety 06/30/2024 Type 2 diabetes mellitus without complication, without long-term current use of insulin ([facility] 06/30/2024 Chest pain 06/30/2024 Elevated troponin 06/30/2024 Hypertensive urgency 06/30/2024 Hypomagnesemia 06/30/2024 QURESHI (dyspnea on exertion) 05/26/2024 Atherosclerosis of [place] coronary artery of [place] heart without angina pectoris 05/26/2024 Hyperlipidemia 05/26/2024 Murmur, heart 05/26/2024 Sepsis ([facility] 07/14/2019 BV (bacterial vaginosis) 10/18/2017 GERD (gastroesophageal reflux disease) 10/18/2017 Essential hypertension 10/18/2017 TIA (transient ischemic attack) 10/18/2017 NSTEMI (non-ST elevated myocardial infarction) ([facility] 06/29/2024 Assessment and Plan NSTEMI CAD, s/p [...] for GI prophylaxis (more content not included)... [facility] 07-10-2024 Note [place] [facility] Note Reason for cardiology [...] Take 1 tablet (more content not included)... [facility] 07-01-2024 Note Hospital Medicine Discharge Summary [...] hypertension, IBS presents a direct mission from [facility] with a chief complaint of chest [...] seen on her EKG. She went to [facility] for the symptoms. Labs were completed [...] on a heparin drip and transferred to [facility] for likely cardiac cath. # NSTEMI s/p [...] - Continue metformin. Dear Dr. Lidia MD, [facility] is advised to follow up with you within 1-2 weeks. Items to follow up in ambulatory setting: None Follow-up with: Cardiology and Nephrology Scheduled appointments: Future Appointments Date Time Provider Department Center 07/10/2024 2:20 PM Bijan Mitchell MD [facility] Your medication list START taking these [...] Your Medications These medications were sent to [facility]/pharmacy #[id number] [address] carvedilol 25 mg tablet cloNIDine 0.1 mg [...] days Lab Units (more content not included)... [facility] 07-01-2024 Note [facility] CARDIOLOGY INPAT IENT PROGRESS NOTE Reason for follow up: NSTEMI Subjective Aby Madrigal, a 59 y.o. female patient, is transferred from [facility] for continuity of care. Patient reports that 3 days ago, she woke up in the mid of the night with indigestion, and a feeling fullness, but no pressure like chest pain. She presented to [facility], where she was found to be hypertensive. [...] 0.56 06/29/2024 E (more content not included)... [facility] 06-30-2024 Note Patient: Aby antony Procedure Information Date/Time: 06/30/24 1600 Procedure: Coronary angiography (Bilateral) Location: [facility] 3 / [facility] (Cath) Providers: Brunilda Cuellar [...] Plan discussed with attending. 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 [facility] 06-30-2024 Note 06/30/24 1431 Admission Assessment [...] Not Interested Does the patient have a manager of case management assigned to them through their insurance? No [...] to send link and activate MyChart? No [facility] 06-30-2024 Note Case was discussed w ith the SALVADOR on 06/29/2024. I agree with the history, physical, assessment, and plan of care. I discussed the findings and therapeutic plan. I agree with the documentation, except for any updates below. Maurice Nogueira MD [facility] 06-30-2024 Note Hospital Medicine History and Physical 06/30/2024 1:15 AM THE HOSPITALIST TEAM PREFERS TO USE [employer] CHAT FOR COMMUNICATION 7AM-7PM. IF I DO NOT RESPOND WITHIN 15 MINUTES, PLEASE PAGE ME/CALL THROUGH THE CONTAINER PACKER OPERATOR. FROM 7PM-7AM, PLEASE PAGE [phone](COVR) Chief Complaint Direct admission from [facility] with CP History of Present Illness Aby Madrigal is an 59 y.o. female who came from home with past medical history of anxiety, DM2, hypertension, IBS presents a direct mission from [facility] with a chief complaint of chest [...] seen on her EKG. She went to [facility] for the symptoms. Labs were completed [...] on a heparin drip and transferred to [facility] for likely cardiac cath. Review of System [...] complication, without long-term current use of insulin ([facility]) 06/30/2024 Chest pain 06/30/2024 Elevated troponin 06/30/2024 Hypertensive urgency 06/30/2024 QURESHI (dyspnea on exertion) 05/26/2024 Atherosclerosis of [place] coronary artery of [place] heart without angina pectoris 05/26/2024 Hyperlipidemia 05/26/2024 Murmur, heart 05/26/2024 Sepsis ([facility]) 07/14/2019 BV (bacterial vaginosis) 10/18/2017 GERD (gastroesophageal reflux disease) 10/18/2017 Essential hypertension 10/18/2017 TIA (transient ischemic attack) 10/18/2017 Assessment and Plan Aby Madrigal is an 59 y.o. female who came from home with past medical history of anxiety, DM2, hypertension, IBS presents a direct mission from [facility] with a chief complaint of chest pain. #Chest pain #Elevated troponin Troponin 0.1, will continue to trend -Patient continues to have mild chest discomfort upon arrival -Continue heparin drip -CXR negative for acute process at OSH -EKG showing normal sinus rhythm -N.p.o. for possible right and left cardiac cath in a.m. -Patient with new diastolic dysfunction on echoc (more content not included)... [facility] 06-21-2024 Note [place] [facility] Subjective Aby Madrigal is a 59 y.o. year old female patient being seen for follow up [facility] ED per Dr. Murillo. She has [...] attack) QURESHI (dyspnea on exertion) Atherosclerosis of [place] coronary artery of [place] heart without angina pectoris Hyperlipidemia Murmur, heart [...] Judgment: Judgment no (more content not included)... [facility] 05-26-2024 Note [place] [facility] Note Reason for cardiology [...] PSYCH: appropriate mood, (more content not included)... [facility] 11-25-2022 Note OPERATIVE NOTE OPERATION DATE: [...] years. CC: Kendra Murillo M.D. [facility] 10-11-2022 Note Chief Complaint consultation for [...] 1 tab(s), Oral, (more content not included)... [facility] Comment on above: Result Comment: Elec tronically Signed By: DIPESH BUCKNER, Umm Valente.germania\Date and Time Signed: 10/11/22 11:01 EST Evaluation + Plan note No data available for this section [facility] [place] [facility] Discharge instructions No data available for this section [facility] [place] [facility] note No data available for this section [facility] [place] Summary Purpose Family History No Family History Records FoundNo Family History Records FoundNo Family History Records FoundNo Family History Records Found Advance Directives No Advanced Directives Records FoundNo Advanced Directives Records FoundNo Advanced Directives Records FoundNo Advanced Directives Records Found Additional Source Comments INFORMATION SOURCE (unrecogn ized section and content) DATE CREATED AUTHOR 12/17/2021 [facility] DATE CREATED AUTHOR AUTHOR'S ORGANIZ ATION 12/16/2022 [facility] DATE CREATED AUTHOR AUTHOR'S ORGANIZ ATION 03/26/2023 [facility] DATE CREATED AUTHOR AUTHOR'S ORGANIZ ATION 07/19/2024 [facility] Patient Care team informatio n (unrecognized section and content) Personnel Name: Kendra Murillo MD Address: Address: [address] [place] [address] Personnel Name: Kendra Murillo MD Address: Address: [address] [place] [address] FOR RECORDS PERTAINING TO PATIENTS WHO ARE [...] BE BASED ON THE PRIMARY CLINICAL RECORDS. [facility]. provides no warranty or guarantee of the accuracy or completeness of information in this document.
[2024-07-20] MEDS: HYDRALAZINE HCL 20 MG/ML VIAL 10 MG IVP (19:55)
[2024-07-20 20:36] LABS: Anion Gap 14.8; BUN Creatinine Ratio 10.3; Calcium 9.4 mg/dL (8.5-10.1); Chloride 103 mmol/L (98-107); Estimated GFR (African America 48 (>=60); Estimated GFR (Non-African Ame 40 (>=60); Glucose 118 mg/dL (74-106); Sodium 143 mmol/L (136-145)
[2024-07-20 20:44] LABS: Troponin I High Sensitivity 12.3 pg/mL (4.0-51.3)
[2024-07-20 20:51] LABS: Potassium 2.8 mmol/L (3.5-5.1)
--- NOTE | 2024-07-20 20:57 | ECG_ITS ---
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[employer] Cutting: : 1965 Requested By: KENDRA MORAN Order Number: [id number] Reading MD: KENDRA MORAN Measurements Intervals [place] Rate: 77 P: 30 FL: 177 QRS: -6 QRSD: 99 T: 89 QT: 398 QTc: 452 Interpretive Statements SINUS RHYTHM LEFT VENTRICULAR HYPERTROPHY AND ST-T CHANGE [VOLTAGE CRITERIA PLUS ST/T ABNORMALITY] POSSIBLE INFERIOR MYOCARDIAL INFARCTION [30 ms Q WAVE IN II/aVF], PROBABLY OLD Compared to ECG 07/20/2024 16:41:56 ST (T wave) deviation now present Myocardial infarct finding now present Early repolarization no longer present Electronically Signed On 07-21-2024 7:29:23 EDT by KENDRA MORAN
[2024-07-20 21:26] LABS: Alanine Aminotransferase 70 U/L (14-59); Albumin Level 3.7 g/dL (3.4-5.0); Alkaline Phosphatase 93 U/L (46-116); Aspartate Amino Transferase 40 U/L (15-37); Bilirubin Direct 0.2 mg/dL (0.0-0.2); Bilirubin Total 0.5 mg/dL (0.2-1.0); Globulin 3.7 g/dL; Magnesium 1.8 mg/dL (1.8-2.4); Phosphorus 3.4 mg/dL (2.6-4.7); Total Protein 7.4 g/dL (6.4-8.2)
--- NOTE | 2024-07-20 21:44 | RESP.RT ---
Sp02 on Room Air 97%. Placed pt on 2L nasal cannula for comfort. Pt complaining of shortness of breath.
[2024-07-20 21:46] LABS: Bilirubin Urine NEGATIVE (NEGATIVE); Blood Urine NEGATIVE (NEGATIVE); Clarity Urine CLEAR (CLEAR); Color Urine LT. YELLOW (YELLOW); Glucose Urine UA NEGATIVE (NEGATIVE); Ketones Urine NEGATIVE (NEGATIVE); Leukocyte Esterase Urine SMALL (NEGATIVE); Nitrite Urine NEGATIVE (NEGATIVE); Protein Urine 30 mg/dL (NEG/TRACE); Specific Gravity Urine 1.015 (1.005-1.025)
[2024-07-20] MEDS: ACETAMINOPHEN 500 MG TABLET 1000 MG PO (21:59)
[2024-07-20] MEDS: POTASSIUM CHLORIDE/D5-0.45NACL 1,000 ML 125 ML IV (22:00)
[2024-07-20] MEDS: CLONIDINE HCL 0.1 MG TABLET PO (22:00)
[2024-07-20] MEDS: METFORMIN HCL 500 MG TABLET PO (22:00)
[2024-07-20] MEDS: QUETIAPINE FUMARATE 25 MG TABLET 50 MG PO (22:00)
[2024-07-20 22:03] LABS: Bacteria Urine MODERATE #/HPF (NONE SEEN); Cast Seen? SEEN #/LPF (NONE SEEN); Crystals Seen? None Seen #/HPF (None Seen); Mucus Urine SMALL (NONE SEEN); RBC Urine 0-2 #/HPF (0-2); Squamous Epithelial Cell Urine FEW #/LPF (NONE/RARE); Transitional Epi Cells Urine FEW #/LPF (NONE SEEN)
[2024-07-20 22:04] LABS: Fine Granular Casts Urine RARE; Urine Culture Indicated YES
[2024-07-20 22:35] LABS: D Dimer 0.68 mg/L FEU (<=0.59)
--- NOTE | 2024-07-20 22:44 | CT_ITS ---
The [address] [address] Patient Name: MILAN RASMUSSEN MRN: [id number] date: 1965 Sex: F Assigned Patient Location: Current Patient Location: Accession/Order Number: [id number] Exam Date: 07/20/2024 23:28 Report Date: 07/21/2024 01:13 At the request of: MADI SINGH Procedure: CT angio chest EXAM: CT angio chest HISTORY: elevated d dimer, shortness of breath COMPARISON: PET/CT examination dated 06/19/2024. TECHNIQUE: Axial CT images through the chest were obtained after the intravenous administration of contrast. Coronal and sagittal reformats were obtained. Dose reduction techniques were achieved by using automated exposure control and/or adjustment of mA and/or kV according to patient size and/or use of iterative reconstruction technique. FINDINGS: The study is technically adequate with a good contrast bolus to the pulmonary arteries. There are no filling defects or vascular cutoffs to indicate a pulmonary embolus. The pulmonary arteries are normal in size. There is a 1.1 x 0.7 cm nodule in the right middle lobe, unchanged compared to the prior PET/CT (series 4, image 45). There is a suspected lymph node along the right minor fissure measuring up to 0.3 cm (series 4, image 42). The central airways are patent. No pneumothorax is seen. There are trace pleural effusions. The thoracic aorta is normal in course and caliber without evidence of an aneurysm. There is mild cardiomegaly. There is no pericardial effusion. There is coronary artery disease. There is advanced atherosclerotic disease. There is no mediastinal, hilar, or axillary lymphadenopathy by CT size criteria. Images through the upper abdomen reveal hepatic steatosis. The patient is status post a cholecystectomy. There is a stable left adrenal mass. No suspicious or aggressive bone lesions are seen. No acute fracture is seen. CT/CT angio chest IMPRESSION: 1. No evidence of pulmonary embolism. 2. No significant interval change to a right middle lobe pulmonary nodule. 3. Trace pleural effusions. 4. Mild cardiomegaly with coronary artery disease. Electronically authenticated by: Alton NEWTON Date: 07/21/2024 01:13
--- NOTE | 2024-07-20 22:44 | CT_ITS ---
The [address] [address] Patient Name: MILAN RASMUSSEN MRN: [id number] date: 1965 Sex: F Assigned Patient Location: Current Patient Location: Accession/Order Number: [id number] Exam Date: 07/20/2024 23:28 Report Date: 07/21/2024 01:04 At the request of: MADI SINGH Procedure: CT abdomen pelvis wo con EXAM: CT abdomen pelvis wo con HISTORY: nausea, vomiting, diarrhea COMPARISON: PET/CT examination dated 06/19/2024. TECHNIQUE: Noncontrast axial CT images through the abdomen and pelvis were obtained with coronal and sagittal reformats. Dose reduction techniques were achieved by using automated exposure control and/or adjustment of mA and/or kV according to patient size and/or use of iterative reconstruction technique. FINDINGS: The visualized portions of the lung bases are clear. There is coronary artery disease. Abdomen: Please note that the sensitivity for detection of focal lesions or vascular disease is markedly reduced without intravenous contrast. There is hepatic steatosis. The spleen is unremarkable. There is no intra or extrahepatic biliary duct dilatation. The gallbladder is surgically absent. There is a 2.9 x 2.7 cm left adrenal mass, stable in size compared to the prior examination (series 3, image 33). There are bilateral nonobstructive renal calculi measuring up to 0.3 cm on the right. There is left renal cortical scarring and atrophy. The pancreas and bowel loops are unremarkable. There is no mesenteric or retroperitoneal lymphadenopathy. The appendix is not definitively seen. There is a tiny fat-containing umbilical hernia. Pelvis: The bladder and rectum are unremarkable. There is no iliac or inguinal lymphadenopathy. The patient is status post a hysterectomy. The ovaries appear within normal limits by CT. There is advanced atherosclerotic disease. Bone windows show no aggressive osseous lesions. CT/CT abdomen pelvis wo con IMPRESSION: 1. No specific etiology identified to explain the patient's nausea, vomiting, or diarrhea is seen. 2. Hepatic steatosis. 3. Status post cholecystectomy, hysterectomy, and possible appendectomy as the appendix is not seen. 4. No significant interval change to a left adrenal mass. 5. Bilateral nonobstructive renal calculi. Electronically authenticated by: Alton NEWTON Date: 07/21/2024 01:04
--- NOTE | 2024-07-20 22:45 | PM.EN ---
Event Note Event Note: Notified by staff of concerns of nausea with shortness of breath, nausea, vomiting & diarrhea earlier tonight. Labs were obtained which showed a K of 2.8 and a d dimer of 0.68, given potassium replacement and stat CTA chest, CT adb pelvis without contrast ordered, EKG shows no ST elevation
[2024-07-20 22:57] LABS: Basophils Absolute Auto 0.1 10^3/uL (0.0-0.1); Basophils Percent Auto 0.5 % (0.2-2.0); Eosinophils Absolute Auto 0.1 10^3/uL (0.0-0.7); Eosinophils Percent Auto 1.2 % (0.9-7.0); Hematocrit 38.1 % (36.0-48.0); Hemoglobin 12.8 g/dL (12.0-16.0); Immature Granulocytes Abs Auto 0.03 10^3/uL (0.00-0.03); Immature Granulocytes Pct Auto 0.3 % (0.0-0.5); Lymphocytes Absolute Auto 1.8 10^3/uL (1.2-3.8); Lymphocytes Percent Auto 15.6 % (20.5-60.0); Mean Corpuscular HGB Conc 33.6 g/dL (29.9-35.2); Mean Corpuscular Hemoglobin 27.9 pg (26.7-34.0); Mean Corpuscular Volume 83.2 fL (81.0-99.0); Mean Platelet Volume 10.2 fL (9.5-13.5); Monocytes Absolute Auto 0.7 10^3/uL (0.3-0.8); Monocytes Percent Auto 6.2 % (1.7-12.0); Neutrophils Absolute Auto 8.6 10^3/uL (1.4-6.5); Neutrophils Percent Auto 76.2 % (43.0-75.0); Platelet Count 264 10^3/uL (150-450); Red Blood Count 4.58 10^6/uL (4.20-5.40); Red Cell Distribution Width 13.8 % (11.0-15.0); White Blood Count 11.3 10^3/uL (4.0-11.0)
[2024-07-20 23:19] LABS: Troponin I High Sensitivity 13.1 pg/mL (4.0-51.3)
[2024-07-21] VITALS (23 sets, daily range): BP systolic 90–177; BP diastolic 60–78; PULSE 57–90; TEMP 36.4–36.8; O2SAT 92–96
[2024-07-21] MEDS: OMEPRAZOLE 40 MG CAPSULE.DR PO (06:10)
[2024-07-21] MEDS: POTASSIUM CHLORIDE/D5-0.45NACL 1,000 ML 125 ML IV (06:13)
--- NOTE | 2024-07-21 08:00 | P.HP_ITS ---
HPI H&P: HPI History of Present Illness Chief complaint: HIGH BP, HTN URGENCY, CP Narrative: Patient resented to the emergency room last night with chest pressure. In ER found no significant elevation in blood pressure. EKG unchanged from previous. Blood pressure greater than 180 systolic. The hypertensive urgency, patient admitted to observation status I saw patient up on the medical surgical floor, she was resting comfortably in bed. She denied any chest discomfort. Does still have some shortness of breath with activity but she has not really been out of bed yet this morning. Does describe some upper abdominal pain as well. Opioid HPI Opioid Management Most Recent Pain and Opioid Data: Last Pain Scale 5 07/20/24 22:42 Last Pain Assessment 07/21/24 07:00 Last ORT Total Score 8 07/20/24 18:55 Last ORT Risk Category High Risk 07/20/24 18:55 Review of Systems ROS Status of ROS 10 or more systems reviewed and unremark able except as noted in history and below [facility] Medical History (Updated 07/20/24 @ 17:45 by Theresa Baron MD) Hypokalemia ?E87.6 - Hypokalemia (ICD-10) Hypertension, uncontrolled ?I10 - Essential (primary) hypertension (ICD-10) Chest pain ?R07.9 - Chest pain, unspecified (ICD-10) NSTEMI (non-ST elevated myocardial infarction) ?I21.4 - Non-ST elevation (NSTEMI) myocardial infarction (ICD-10) Shortness of breath ?R06.02 - Shortness of breath (ICD-10) Headache ?R51.9 - Headache, unspecified (ICD-10) Elevated d-dimer ?R79.89 - Other specified abnormal findings of blood chemistry (ICD-10) Hypertensive emergency ?I16.1 - Hypertensive emergency (ICD-10) Uncontrolled hypertension ?I10 - Essential (primary) hypertension (ICD-10) Irritable bowel syndrome ?K58.9 - Irritable bowel syndrome without diarrhea (ICD-10) H/O nephrolithotomy with removal of calculi ?Z98.890 - Other specified postprocedural states (ICD-10) ?Z87.442 - Personal history of urinary calculi (ICD-10) Kidney stone ?N20.0 - Calculus of kidney (ICD-10) Sepsis ?A41.9 - Sepsis, unspecified organism (ICD-10) H/O angiography ?Z92.89 - Personal history of other medical treatment (ICD-10) Lung nodule ?R91.1 - Solitary pulmonary nodule (ICD-10) Anxiety ?F41.9 - Anxiety disorder, unspecified (ICD-10) HTN (hypertension) ?I10 - Essential (primary) hypertension (ICD-10) Diabetes ?E11.9 - Type 2 diabetes mellitus without complications (ICD-10) TIA (transient ischemic attack) ?G45.9 - Transient cerebral ischemic attack, unspecified (ICD-10) Surgical History (Updated 04/22/24 @ 01:20 by Stalin Kevin) History of appendectomy ?Z90.49 - Acquired absence of other specified parts of digestive tract (ICD- 10) H/O tubal ligation ?Z98.51 - Tubal ligation status (ICD-10) History of cholecystectomy ?Z90.49 - Acquired absence of other specified parts of digestive tract (ICD- 10) Family History (Updated 04/22/24 @ 01:15 by Stalin Kevin) Mother Family history of cancer Father MVA (motor vehicle accident) Brother Family history of stroke Social History (Updated 04/22/24 @ 01:26 by Stalin Kevin) Within the past year, how often did you have a drink containing alcohol: never Within the past year, how often did you have six or more drinks on one occasion: never Score interpretation: A score less than 3 is consistent with normal alcohol consumption. Smoking status: Former smoker Second hand tobacco smoke exposure: No Non-prescribed substance use: denies use Previous occupational history: no Known occupational exposures/hazards: No Highest level of school completed/degree received: high school graduate Do you want help with school or training: No Are you now , , , , never or living with a partner: In a typical week, how many times do you talk on the telephone with family, friends, or neighbors: 3 or more times per week How often do you get together with friends or relatives: 3 or more times per week How often do you attend confucianist or roman catholic services: never Do you belong to any clubs or organizations such as confucianist groups unions, fraternal or athletic groups, or school groups: no Total score: 1 Score interpretation: A score of less than or equal to 1 indicates the most socially isolated. Little interest or pleasure in doing things: not at all Feeling down, depressed, or hopeless: not at all Feel stressed/tense/nervous/anxious/difficulty sleeping: not at all Do you think of yourself as: straight/heterosexual Gender Identity: female Meds Home Medications and Allergies Home Medications ?Medication ?Instructions ?Recorded ?Confirmed ?Type metformin 500 mg tablet 500 mg PO BID 04/21/24 07/20/24 History aspirin 81 mg capsule 81 mg PO DAILY 04/22/24 07/20/24 History furosemide 20 mg tablet (Lasix) 20 mg PO DAILY 04/22/24 07/20/24 History losartan 50 mg tablet 100 mg PO DAILY 06/29/24 07/20/24 History quetiapine 25 mg tablet 50 mg PO BEDTIME 06/29/24 07/20/24 History carvedilol 25 mg tablet 25 mg PO BID 07/01/24 07/20/24 History clopidogrel 75 mg tablet 75 mg PO DAILY 07/01/24 07/20/24 History lorazepam 0.5 mg tablet (Ativan) 0.5 mg PO Q8H PRN anxiety 07/01/24 07/20/24 History rosuvastatin 40 mg sprinkle capsule 40 mg PO DAILY 07/01/24 07/20/24 History spironolactone 25 mg tablet 25 mg PO QAM 07/18/24 07/20/24 History clonidine HCl 0.2 mg tablet 0.2 mg PO Q12H 07/20/24 07/20/24 History isosorbide mononitrate 60 mg 60 mg PO QAM 07/20/24 07/20/24 History tablet,extended release 24 hr metoprolol tartrate 100 mg tablet 100 mg PO Q12H 07/20/24 07/20/24 History pantoprazole 40 mg tablet,delayed 40 mg PO .ACB 07/20/24 07/20/24 History release (Protonix) sennosides 8.6 mg-docusate sodium 1 tab-cap PO DAILY PRN constipation 07/20/24 07/20/24 History 50 mg tablet (Colace 2-In-1) Allergies Allergy/AdvReac Type Severity Reaction Status Date / Time amlodipine Allergy Mild Headache Verified 07/20/24 16:34 alprazolam [From Xanax] AdvReac Severe Watery Eye Verified 07/20/24 16:34 Exam Constitutional Vital Signs, click to edit/add: Last Vital Signs Temp 97.8 F 07/21/24 04:00 Pulse 72 07/21/24 06:00 Resp 18 07/21/24 04:00 BP 155/69 H 07/21/24 04:00 Pulse Ox 96 07/21/24 05:08 O2 Del Method Nasal Cannula 07/21/24 05:08 O2 Flow Rate 2 07/21/24 05:08 Documenting provider has reviewed patient's vital signs: yes Common normals: no apparent distress HENMT Common normals: normocephalic Chest Common normals: inspection of chest normal Respiratory Common normals: normal respiratory effort and no retractions Cardio Common normals: regular rate, regular rhythm and no murmurs GI Common normals: Normal to inspection, nondistended, normoactive bowel sounds present Extremity Common normals: normal to inspection, full ROM and no clubbing, cyanosis or edema Neuro Common normals: oriented x3 and CN's II-XII intact bilaterally Results Labs Labs: Short CBC 07/20/24 Range/Units 22:50 WBC 11.3 H (4.0-11.0) 10^3/uL Hgb 12.8 (12.0-16.0) g/dL Hct 38.1 (36.0-48.0) % Plt Count 264 (150-450) 10^3/uL BMP 07/20/24 20:05 Sodium 143 Potassium 2.8 L* Chloride 103 Carbon Dioxide 28.0 BUN 14.0 Creatinine 1.36 H Glucose 118 H Calcium 9.4 Liver Function 07/20/24 Range/Units 20:05 Total Bilirubin 0.5 (0.2-1.0) mg/dL Direct Bilirubin 0.2 (0.0-0.2) mg/dL AST 40 H (15-37) U/L ALT 70 H (14-59) U/L Alkaline Phosphatase 93 (46-116) U/L Albumin 3.7 (3.4-5.0) g/dL Urine 07/20/24 Range/Units 21:39 Urine Color Lt. yellow (YELLOW) Urine Clarity Clear (CLEAR) Urine pH 6.0 (5.0-9.0) Ur Specific [place] 1.015 (1.005-1.025) Urine Protein 30 A (NEG/TRACE) mg/dL Urine Glucose (UA) Negative (NEGATIVE) mg/dL
--- NOTE | 2024-07-21 08:04 | P.HP_ITS ---
HPI H&P: HPI History of Present Illness Chief complaint: HIGH BP, HTN URGENCY, CP Narrative: Patient resented to the emergency room last night with chest pressure. In ER found no significant elevation in blood pressure. EKG unchanged from previous. Blood pressure greater than 180 systolic. The hypertensive urgency, patient admitted to observation status I saw patient up on the medical surgical floor, she was resting comfortably in bed. She denied any chest discomfort. Does still have some shortness of breath with activity but she has not really been out of bed yet this morning. Does describe some upper abdominal pain as well. Opioid HPI Opioid Management Most Recent Pain and Opioid Data: Last Pain Scale 5 07/20/24 22:42 Last Pain Assessment 07/21/24 07:00 Last ORT Total Score 8 07/20/24 18:55 Last ORT Risk Category High Risk 07/20/24 18:55 Review of Systems ROS Status of ROS 10 or more systems reviewed and unremark able except as noted in history and below PFSH PFS Medical History Hypokalemia ?E87.6 - Hypokalemia (ICD-10) Hypertension, uncontrolled ?I10 - Essential (primary) hypertension (ICD-10) Chest pain ?R07.9 - Chest pain, unspecified (ICD-10) NSTEMI (non-ST elevated myocardial infarction) ?I21.4 - Non-ST elevation (NSTEMI) myocardial infarction (ICD-10) Shortness of breath ?R06.02 - Shortness of breath (ICD-10) Headache ?R51.9 - Headache, unspecified (ICD-10) Elevated d-dimer ?R79.89 - Other specified abnormal findings of blood chemistry (ICD-10) Hypertensive emergency ?I16.1 - Hypertensive emergency (ICD-10) Uncontrolled hypertension ?I10 - Essential (primary) hypertension (ICD-10) Irritable bowel syndrome ?K58.9 - Irritable bowel syndrome without diarrhea (ICD-10) H/O nephrolithotomy with removal of calculi ?Z98.890 - Other specified postprocedural states (ICD-10) ?Z87.442 - Personal history of urinary calculi (ICD-10) Kidney stone ?N20.0 - Calculus of kidney (ICD-10) Sepsis ?A41.9 - Sepsis, unspecified organism (ICD-10) H/O angiography ?Z92.89 - Personal history of other medical treatment (ICD-10) Lung nodule ?R91.1 - Solitary pulmonary nodule (ICD-10) Anxiety ?F41.9 - Anxiety disorder, unspecified (ICD-10) HTN (hypertension) ?I10 - Essential (primary) hypertension (ICD-10) Diabetes ?E11.9 - Type 2 diabetes mellitus without complications (ICD-10) TIA (transient ischemic attack) ?G45.9 - Transient cerebral ischemic attack, unspecified (ICD-10) Surgical History (Updated 04/22/24 @ 01:20 by Stalin Kevin) History of appendectomy ?Z90.49 - Acquired absence of other specified parts of digestive tract (ICD- 10) H/O tubal ligation ?Z98.51 - Tubal ligation status (ICD-10) History of cholecystectomy ?Z90.49 - Acquired absence of other specified parts of digestive tract (ICD- 10) Family History (Updated 04/22/24 @ 01:15 by Stalin Kevin) Mother Family history of cancer Father MVA (motor vehicle accident) Brother Family history of stroke Social History (Updated 04/22/24 @ 01:26 by Stalin Kevin) Within the past year, how often did you have a drink containing alcohol: never Within the past year, how often did you have six or more drinks on one occasion: never Score interpretation: A score less than 3 is consistent with normal alcohol consumption. Smoking status: Former smoker Second hand tobacco smoke exposure: No Non-prescribed substance use: denies use Previous occupational history: no Known occupational exposures/hazards: No Highest level of school completed/degree received: high school graduate Do you want help with school or training: No Are you now , , , , never or living with a partner: In a typical week, how many times do you talk on the telephone with family, friends, or neighbors: 3 or more times per week How often do you get together with friends or relatives: 3 or more times per week How often do you attend spiritism or roman catholic services: never Do you belong to any clubs or organizations such as spiritism groups unions, fraternal or athletic groups, or school groups: no Total score: 1 Score interpretation: A score of less than or equal to 1 indicates the most socially isolated. Little interest or pleasure in doing things: not at all Feeling down, depressed, or hopeless: not at all Feel stressed/tense/nervous/anxious/difficulty sleeping: not at all Do you think of yourself as: straight/heterosexual Gender Identity: female Meds Home Medications and Allergies Home Medications ?Medication ?Instructions ?Recorded ?Confirmed ?Type metformin 500 mg tablet 500 mg PO BID 04/21/24 07/20/24 History aspirin 81 mg capsule 81 mg PO DAILY 04/22/24 07/20/24 History furosemide 20 mg tablet (Lasix) 20 mg PO DAILY 04/22/24 07/20/24 History losartan 50 mg tablet 100 mg PO DAILY 06/29/24 07/20/24 History quetiapine 25 mg tablet 50 mg PO BEDTIME 06/29/24 07/20/24 History carvedilol 25 mg tablet 25 mg PO BID 07/01/24 07/20/24 History clopidogrel 75 mg tablet 75 mg PO DAILY 07/01/24 07/20/24 History lorazepam 0.5 mg tablet (Ativan) 0.5 mg PO Q8H PRN anxiety 07/01/24 07/20/24 History rosuvastatin 40 mg sprinkle capsule 40 mg PO DAILY 07/01/24 07/20/24 History spironolactone 25 mg tablet 25 mg PO QAM 07/18/24 07/20/24 History clonidine HCl 0.2 mg tablet 0.2 mg PO Q12H 07/20/24 07/20/24 History isosorbide mononitrate 60 mg 60 mg PO QAM 07/20/24 07/20/24 History tablet,extended release 24 hr metoprolol tartrate 100 mg tablet 100 mg PO Q12H 07/20/24 07/20/24 History pantoprazole 40 mg tablet,delayed 40 mg PO .ACB 07/20/24 07/20/24 History release (Protonix) sennosides 8.6 mg-docusate sodium 1 tab-cap PO DAILY PRN constipation 07/20/24 07/20/24 History 50 mg tablet (Colace 2-In-1) Allergies Allergy/AdvReac Type Severity Reaction Status Date / Time amlodipine Allergy Mild Headache Verified 07/20/24 16:34 alprazolam [From Xanax] AdvReac Severe Watery Eye Verified 07/20/24 16:34 Exam Constitutional Vital Signs, click to edit/add: Last Vital Signs Temp 97.8 F 07/21/24 04:00 Pulse 72 07/21/24 06:00 Resp 18 07/21/24 04:00 BP 155/69 H 07/21/24 04:00 Pulse Ox 96 07/21/24 05:08 O2 Del Method Nasal Cannula 07/21/24 05:08 O2 Flow Rate 2 07/21/24 05:08 Documenting provider has reviewed patient's vital signs: yes Common normals: no apparent distress HENMT Common normals: normocephalic Chest Common normals: inspection of chest normal Respiratory Common normals: normal respiratory effort and no retractions Cardio Common normals: regular rate, regular rhythm and no murmurs GI Common normals: Normal to inspection, nondistended, normoactive bowel sounds present Extremity Common normals: normal to inspection, full ROM and no clubbing, cyanosis or edema Neuro Common normals: oriented x3 and CN's II-XII intact bilaterally Results Labs Labs: Short CBC 07/20/24 Range/Units 22:50 WBC 11.3 H (4.0-11.0) 10^3/uL Hgb 12.8 (12.0-16.0) g/dL Hct 38.1 (36.0-48.0) % Plt Count 264 (150-450) 10^3/uL BMP 07/20/24 20:05 Sodium 143 Potassium 2.8 L* Chloride 103 Carbon Dioxide 28.0 BUN 14.0 Creatinine 1.36 H Glucose 118 H Calcium 9.4 Liver Function 07/20/24 Range/Units 20:05 Total Bilirubin 0.5 (0.2-1.0) mg/dL Direct Bilirubin 0.2 (0.0-0.2) mg/dL AST 40 H (15-37) U/L ALT 70 H (14-59) U/L Alkaline Phosphatase 93 (46-116) U/L Albumin 3.7 (3.4-5.0) g/dL Urine 07/20/24 Range/Units 21:39 Urine Color Lt. yellow (YELLOW) Urine Clarity Clear (CLEAR) Urine pH 6.0 (5.0-9.0) Ur Specific [place] 1.015 (1.005-1.025) Urine Protein 30 A (NEG/TRACE) mg/dL Urine Glucose (UA) Negative (NEGATIVE) mg/dL Assessment and Plan Assessment and Plan (1) Hypertensive urgency: (2) Chest pain: Qualifiers: Chest pain type: unspecified Qualified Code(s): R07.9 - Chest pain, unspecified (3) HTN (hypertension): (4) Hypokalemia: Plan Admission findings: Leukocytosis, hypokalemia, mild elevation of LFTs secondary to hypertensive urgency resulting in chest discomfort. Cardiac markers are negative. Hypertensive urgency-Coreg held overnight, will restart that today. As long as not symptomatic bradycardia would administer the carvedilol. She is tapering off of clonidine currently. Restarted the losartan. Increasing Imdur to 120. Cardiac markers are negative. If stable later today possible discharge to home in improving condition. Medications see list. Follow-up with me in the office on Wednesday. Leukocytosis with positive UA-start Rocephin Acute kidney injury-likely secondary to p.o. intake. Labs pending this morning Elevated liver function test-CT scan unremarkable, likely related to passive congestion from hypertensive urgency, labs pending this a.m. Diabetes mellitus-holding metformin due to CT scan chest Generalized anxiety disorder-maintain home medications Admission status: Patient with hypertensive urgency in the emergency room, improved to just hypertension this morning. Adjusting medications this morning. Will see how the afternoon progresses. Possible discharge to home later today. Observation status maintained
--- NOTE | 2024-07-21 08:09 | P.DS_ITS ---
DS: Providers Provider Date of admission: 07/20/24 18:23 Primary care physician: Carlito Murillo MD DS: Diagnosis Discharge Diagnosis (1) Hypertensive urgency: (2) Chest pain: Qualifiers: Chest pain type: unspecified Qualified Code(s): R07.9 - Chest pain, unspecified (3) HTN (hypertension): (4) Hypokalemia: Plan Admission findings: Leukocytosis, hypokalemia, mild elevation of LFTs secondary to hypertensive urgency resulting in chest discomfort. Cardiac markers are negative. Hypertensive urgency-Coreg held overnight, will restart that today. As long as not symptomatic bradycardia would administer the carvedilol. She is tapering off of clonidine currently. Restarted the losartan. Increasing Imdur to 120. Cardiac markers are negative. If stable later today possible discharge to home in improving condition. Medications see list. Follow-up with me in the office on Wednesday. Leukocytosis with positive UA-start Rocephin Acute kidney injury-likely secondary to p.o. intake. Labs pending this morning Elevated liver function test-CT scan unremarkable, likely related to passive congestion from hypertensive urgency, labs pending this a.m. Diabetes mellitus-holding metformin due to CT scan chest Generalized anxiety disorder-maintain home medications Admission status: Patient with hypertensive urgency in the emergency room, improved to just hypertension this morning. Adjusting medications this morning. Will see how the afternoon progresses. Possible discharge to home later today. Observation status maintained ? DS: Summary Status at Discharge Overall status at discharge: patient is not back to baseline Time Spent with Patient Time attestation: Total time spent providing and/or coordinating discharge services: Time spent: greater than 30 minutes Exam Constitutional Vital Signs, click to edit/add: Last Vital Signs Temp 97.8 F 07/21/24 04:00 Pulse 72 07/21/24 06:00 Resp 18 07/21/24 04:00 BP 155/69 H 07/21/24 04:00 Pulse Ox 96 07/21/24 05:08 O2 Del Method Nasal Cannula 07/21/24 05:08 O2 Flow Rate 2 07/21/24 05:08 DS: Data Data Completed and Pending Labs on day of discharge: Labs from last 24 hours 07/20/24 07/20/24 07/20/24 22:50 21:39 21:37 WBC 11.3 H RBC 4.58 Hgb 12.8 Hct 38.1 MCV 83.2 MCH 27.9 MCHC 33.6 RDW 13.8 Plt Count 264 MPV 10.2 Neut % (Auto) 76.2 H Lymph % (Auto) 15.6 L [place] % (Auto) 6.2 Eos % (Auto) 1.2 Baso % (Auto) 0.5 Neut # (Auto) 8.6 H Lymph # (Auto) 1.8 [place] # (Auto) 0.7 Eos # (Auto) 0.1 Baso # (Auto) 0.1 Abs Immat Gran (auto) 0.03 Imm/Tot Granulo (auto) 0.3 D-Dimer 0.68 H* Sodium Potassium Chloride Carbon Dioxide Anion Gap BUN Creatinine Est GFR ( Amer) Est GFR (Non-Af Amer) BUN/Creatinine Ratio Glucose Calcium Phosphorus Magnesium Total Bilirubin Direct Bilirubin AST ALT Alkaline Phosphatase Troponin I High Sens 13.1 NT-Pro-B Natriuret Pep Total Protein Albumin Globulin Albumin/Globulin Ratio Lipase Urine Color Lt. yellow Urine Clarity Clear Urine pH 6.0 Ur Specific [place] 1.015 Urine Protein 30 A Urine Glucose (UA) Negative Urine Ketones Negative Urine Occult Blood Negative Urine Nitrite Negative Urine Bilirubin Negative Urine Urobilinogen 1.0 Ur Leukocyte Esterase Small A Urine RBC 0-2 Urine WBC 2-5 A Ur Squamous Epith Cells Few A Ur Transition Epith Cell Few A Urine Crystals None seen Urine Bacteria Moderate A Urine Casts Seen A Fine Granular Casts Rare Urine Mucus Small A Ur Culture Indicated? Yes 07/20/24 07/20/24 20:05 17:19 WBC RBC Hgb Hct MCV MCH MCHC RDW Plt Count MPV Neut % (Auto) Lymph % (Auto) [place] % (Auto) Eos % (Auto) Baso % (Auto) Neut # (Auto) Lymph # (Auto) [place] # (Auto) Eos # (Auto) Baso # (Auto) Abs Immat Gran (auto) Imm/Tot Granulo (auto) D-Dimer Sodium 143 Potassium 2.8 L* Chloride 103 Carbon Dioxide 28.0 Anion Gap 14.8 BUN 14.0 Creatinine 1.36 H Est GFR ( Amer) 48 L Est GFR (Non-Af Amer) 40 L BUN/Creatinine Ratio 10.3 Glucose 118 H Calcium 9.4 Phosphorus 3.4 Magnesium 1.8 Total Bilirubin 0.5 Direct Bilirubin 0.2 AST 40 H ALT 70 H Alkaline Phosphatase 93 Troponin I High Sens 12.3 12.6 NT-Pro-B Natriuret Pep 620.0 Total Protein 7.4 Albumin 3.7 Globulin 3.7 Albumin/Globulin Ratio 1.0 Lipase 39.0 Urine Color Urine Clarity Urine pH Ur Specific [place] Urine Protein Urine Glucose (UA) Urine Ketones Urine Occult Blood Urine Nitrite Urine Bilirubin Urine Urobilinogen Ur Leukocyte Esterase Urine RBC Urine WBC Ur Squamous Epith Cells Ur Transition Epith Cell Urine Crystals Urine Bacteria Urine Casts Fine Granular Casts Urine Mucus Ur Culture Indicated? Discharge Plan Discharge Discharge Medications: No Action metformin 500 mg tablet 500 mg PO BID aspirin 81 mg capsule 81 mg PO DAILY furosemide [Lasix] 20 mg tablet 20 mg PO DAILY Hold Instructions: Doctor's Order quetiapine 25 mg tablet 50 mg PO BEDTIME losartan 50 mg tablet 100 mg PO DAILY sennosides-docusate sodium [Colace 2-In-1] 8.6-50 mg tablet 1 tab-cap PO DAILY PRN (Reason: constipation) isosorbide mononitrate 60 mg tablet extended release 24 hr 60 mg PO QAM clonidine HCl 0.2 mg tablet 0.2 mg PO Q12H metoprolol tartrate 100 mg tablet 100 mg PO Q12H pantoprazole [Protonix] 40 mg tablet,delayed release (DR/EC) 40 mg PO .ACB rosuvastatin 40 mg capsule, sprinkle 40 mg PO DAILY carvedilol 25 mg tablet 25 mg PO BID clopidogrel 75 mg tablet 75 mg PO DAILY lorazepam [Ativan] 0.5 mg tablet 0.5 mg PO Q8H PRN (Reason: anxiety) Patient Comments: TAKE 1 TO 2 TABS spironolactone 25 mg tablet 25 mg PO QAM Print Language: [place]
[2024-07-21 08:22] LABS: Alanine Aminotransferase 57 U/L (14-59); Albumin Globulin Ratio 0.9; Albumin Level 3.1 g/dL (3.4-5.0); Alkaline Phosphatase 80 U/L (46-116); Anion Gap 12.3; Aspartate Amino Transferase 31 U/L (15-37); Bilirubin Total 0.3 mg/dL (0.2-1.0); Calcium 8.8 mg/dL (8.5-10.1); Carbon Dioxide 27.7 mmol/L (21.0-32.0); Chloride 106 mmol/L (98-107); Estimated GFR (African America 48 (>=60); Estimated GFR (Non-African Ame 39 (>=60); Globulin 3.3 g/dL; Glucose 129 mg/dL (74-106); Sodium 143 mmol/L (136-145); Total Protein 6.4 g/dL (6.4-8.2)
[2024-07-21] MEDS: PANTOPRAZOLE SODIUM 40 MG VIAL IV (08:33)
[2024-07-21] MEDS: CARVEDILOL 25 MG TABLET PO ×2 (08:33→21:18)
[2024-07-21] MEDS: ISOSORBIDE MONONITRATE 60 MG TAB.ER.24H 120 MG PO (08:34)
[2024-07-21] MEDS: ASPIRIN 81 MG TAB.CHEW PO (08:34)
[2024-07-21] MEDS: CLOPIDOGREL BISULFATE 75 MG TABLET PO (08:34)
[2024-07-21] MEDS: CLONIDINE HCL 0.1 MG TABLET PO (08:34)
[2024-07-21] MEDS: LOSARTAN POTASSIUM 50 MG TABLET 100 MG PO (08:34)
[2024-07-21] MEDS: CEFTRIAXONE 1,000 MG in 0.9 % SODIUM CHLORIDE 50 ML 100 MG IV (08:45)
[2024-07-21] MEDS: 0.9 % SODIUM CHLORIDE 250 ML 10 ML IV (09:01)
[2024-07-21] MEDS: LORAZEPAM 0.5 MG TABLET PO ×2 (09:48→19:44)
[2024-07-21] MEDS: POTASSIUM CHLORIDE 40 MEQ in 0.9 % SODIUM CHLORIDE 250 ML 67.5 MEQ IV (11:35)
[2024-07-21] MEDS: ACETAMINOPHEN 500 MG TABLET 1000 MG PO ×2 (14:00→19:44)
[2024-07-21] MEDS: HYDRALAZINE HCL 20 MG/ML VIAL 10 MG IVP (18:58)
[2024-07-21] MEDS: ONDANSETRON PF 4 MG/2 ML VIAL IV (19:44)
[2024-07-21] MEDS: QUETIAPINE FUMARATE 25 MG TABLET 50 MG PO (21:18)
[2024-07-21 21:51] LABS: Glucometer 114 mg/dL (74-106)
[2024-07-22] VITALS (7 sets, daily range): BP systolic 153–162; BP diastolic 67–77; PULSE 62–81; TEMP 36.4–36.6; O2SAT 94–98
[2024-07-22] MEDS: IBUPROFEN 400 MG TABLET PO (00:09)
[2024-07-22] MEDS: PANTOPRAZOLE SODIUM 40 MG VIAL IV (05:42)
[2024-07-22] MEDS: ISOSORBIDE MONONITRATE 60 MG TAB.ER.24H PO (08:34)
[2024-07-22] MEDS: ASPIRIN 81 MG TAB.CHEW PO (08:34)
[2024-07-22] MEDS: LOSARTAN POTASSIUM 50 MG TABLET 100 MG PO (08:34)
[2024-07-22] MEDS: CARVEDILOL 25 MG TABLET PO (08:34)
[2024-07-22] MEDS: CLOPIDOGREL BISULFATE 75 MG TABLET PO (08:35)
[2024-07-22] MEDS: CEFTRIAXONE 1,000 MG in 0.9 % SODIUM CHLORIDE 50 ML 100 MG IV (08:43)
[2024-07-22] MEDS: 0.9 % SODIUM CHLORIDE 250 ML 10 ML IV (08:44)
[2024-07-22 09:17] LABS: BUN Creatinine Ratio 6.3; Calcium 8.9 mg/dL (8.5-10.1); Chloride 108 mmol/L (98-107); Estimated GFR (African America 45 (>=60); Estimated GFR (Non-African Ame 37 (>=60); Glucose 122 mg/dL (74-106); Potassium 3.3 mmol/L (3.5-5.1); Sodium 145 mmol/L (136-145)
[2024-07-22 09:29] LABS: Anion Gap 13.7; Carbon Dioxide 26.6 mmol/L (21.0-32.0)
--- NOTE | 2024-07-22 09:31 | P.DS_ITS ---
DS: Providers Provider Date of admission: 07/21/24 16:42 Primary care physician: Carlito Murillo MD DS: Diagnosis Discharge Diagnosis (1) Hypertensive urgency: (2) Chest pain: Qualifiers: Chest pain type: unspecified Qualified Code(s): R07.9 - Chest pain, unspecified (3) HTN (hypertension): (4) Hypokalemia: (5) Anxiety: Plan Admission findings: Leukocytosis, hypokalemia, mild elevation of LFTs secondary to hypertensive urgency resulting in chest discomfort. Cardiac markers are negative. Hypertensive urgency-chest pain still persisting yesterday with hypertension as well, blood pressure better this morning, chest pain resolved this morning. Hypertensive urgency resolved. Leukocytosis with positive UA-improved at the time of discharge Acute kidney injury-elevated at the time of discharge. Monitor as an outpatient Elevated liver function test-stable at the time of discharge Diabetes mellitus-treated as an outpatient Generalized anxiety disorder-stable to time of discharge Admission status: Patient with hypertensive urgency in the emergency room, improved to just hypertension this morning. Adjusting medications this morning. Will see how the afternoon progresses. Possible discharge to home later today. Observation status maintained ? DS: Summary Hospital Course Hospital Course: Patient was admitted with hypertensive urgency. She has had multiple ER and transferred to tertiary care facilities for her recent diagnosis of coronary artery disease and is status post stenting. EKG with no significant acute changes. EKG did improve with improved blood pressure control. Hypertensive urgency persisted yesterday. With chest pain and the elevated blood pressure. Her blood pressure still somewhat elevated this morning but her chest pain has resolved. Medications been adjusted. At this point we will discharge patient home in improving condition. Medications see list. I will see patient in the office in 3 days. Status at Discharge Overall status at discharge: patient is not back to baseline Time Spent with Patient Time attestation: Total time spent providing and/or coordinating discharge services: Time spent: greater than 30 minutes Exam Constitutional Vital Signs, click to edit/add: Last Vital Signs Temp 97.5 F L 07/22/24 08:00 Pulse 68 07/22/24 08:00 Resp 18 07/22/24 08:00 BP 162/75 H 07/22/24 08:00 Pulse Ox 94 L 07/22/24 08:00 O2 Del Method Room Air 07/22/24 08:00 O2 Flow Rate 1.5 07/22/24 04:00 Documenting provider has reviewed patient's vital signs: yes Common normals: no apparent distress HENMT Common normals: normocephalic Chest Common normals: inspection of chest normal Respiratory Common normals: normal respiratory effort and no retractions Cardio Common normals: regular rate, regular rhythm and no murmurs GI Common normals: Normal to inspection, nondistended, normoactive bowel sounds present Extremity Common normals: normal to inspection, full ROM and no clubbing, cyanosis or edema Neuro Common normals: oriented x3 and CN's II-XII intact bilaterally DS: Data Data Completed and Pending Labs on day of discharge: Labs from last 24 hours 07/21/24 21:49 POC Glucose 114 H Discharge Plan Discharge Disposition: Home, Self-Care Discharge Medications: New isosorbide mononitrate 60 mg tablet extended release 24 hr 120 mg PO DAILY Qty: 60 11RF Rx Instructions: may also split up and take BID - hold if BP <110 systolic quetiapine [Seroquel] 100 mg tablet 100 mg PO DAILY Qty: 30 11RF lorazepam [Ativan] 1 mg tablet 1 mg PO TID PRN (Reason: anxiety) 7 Days Qty: 20 0RF Continued metformin 500 mg tablet 500 mg PO BID aspirin 81 mg capsule 81 mg PO DAILY losartan 50 mg tablet 100 mg PO DAILY sennosides-docusate sodium [Colace 2-In-1] 8.6-50 mg tablet 1 tab-cap PO DAILY PRN (Reason: constipation) pantoprazole [Protonix] 40 mg tablet,delayed release (DR/EC) 40 mg PO .ACB rosuvastatin 40 mg capsule, sprinkle 40 mg PO DAILY carvedilol 25 mg tablet 25 mg PO BID clopidogrel 75 mg tablet 75 mg PO DAILY lorazepam [Ativan] 0.5 mg tablet 0.5 mg PO Q8H PRN (Reason: anxiety) Patient Comments: TAKE 1 TO 2 TABS Discontinued furosemide [Lasix] 20 mg tablet 20 mg PO DAILY Hold Instructions: Doctor's Order quetiapine 25 mg tablet 50 mg PO BEDTIME isosorbide mononitrate 60 mg tablet extended release 24 hr 60 mg PO QAM clonidine HCl 0.2 mg tablet 0.2 mg PO Q12H metoprolol tartrate 100 mg tablet 100 mg PO Q12H spironolactone 25 mg tablet 25 mg PO QAM Print Language: Sammarinese Patient Instructions: Lorazepam (By mouth), Isosorbide Mononitrate (By mouth) (Imdur, Imdur ER, Ismo), Quetiapine (By mouth), Hypertension (DC) Forms: Portal Instructions Follow Up Appointments: Dr. Murillo wants to see you in the office July 25. Please call the office first thing in the AM
--- NOTE | 2024-07-26 14:44 | CM.DCFOLLOWU ---
Patient back in hospital on 07/24/24
== END 2024-07-22 10:47 | disposition home or self-care (01) | DRG 199 ==
LOC: ER 17:45 → MS 18:28
PROVIDERS: Registered Nurse; Admitting Provider Family Medicine; Emergency Provider Emergency Medicine; PCP Family Medicine; Visit Provider Family Medicine
DX: I16.0 Hypertensive urgency (principal); I1A.0 Resistant hypertension; E66.09 Other obesity due to excess calories; Z68.37 Body mass index [BMI] 37.0-37.9, adult; Z95.5 Presence of coronary angioplasty implant and graft; Z87.891 Personal history of nicotine dependence; I10 Essential (primary) hypertension; R07.9 Chest pain, unspecified; I25.10 Atherosclerotic heart disease of native coronary artery without angina pectoris; I25.2 Old myocardial infarction; E11.9 Type 2 diabetes mellitus without complications; Z86.73 Personal history of transient ischemic attack (TIA), and cerebral infarction without residual deficits; Z98.51 Tubal ligation status; Z90.49 Acquired absence of other specified parts of digestive tract; Z79.84 Long term (current) use of oral hypoglycemic drugs; Z87.442 Personal history of urinary calculi; E87.6 Hypokalemia; R79.89 Other specified abnormal findings of blood chemistry; D72.829 Elevated white blood cell count, unspecified; N17.9 Acute kidney failure, unspecified; F41.1 Generalized anxiety disorder; Z79.82 Long term (current) use of aspirin; R82.90 Unspecified abnormal findings in urine; D50.9 Iron deficiency anemia, unspecified; I70.1 Atherosclerosis of renal artery; R06.02 Shortness of breath
CPT/HCPCS: 36415; 71045; 71275; 74176; 80048; 80053; 80076; 80299; 81001; 81003; 82088; 82533; 82948; 83690; 83735; 83880; 84100; 84244; 84484; 85025; 85378; 85610; 85730; 87045; 87046; 87086; 87427; 93005; 94761; 96365; 96366; 96368; 96375; 96376; 99285; G0328; G0378; J0360; J0696; J2405; J3480; Q9967

== ENCOUNTER 2024-07-23 19:52 | Inpatient (IN) | payer MEDICAID, SELFPAY ==
[2024-07-23] VITALS (15 sets, daily range): BP systolic 198–234; BP diastolic 74–96; PULSE 62–78; TEMP 36.9; O2SAT 94–99; BMI 37.2
--- OUTSIDE RECORDS SUMMARY | 2024-07-23 20:09 | XMS_ITS | CCD ---
Author Organization [facility] Care Team Providers Care Meat Service Team Member Name Role Phone Kendra Murillo Primary Care [...] Unavailable VIMAL, DR ADELIA Medrano Consulting Unavailable HERMINIA LI Attending Unavailable LEONORAYKENDRA Referring Unavailable HORANI, NOAN Admitting Unavailable HORANI, NONA Attending Unavailable BIJAN MITCHELL Attending Unavailable HORANI, NONA Referring Unavailable HORANI, NONA Referring Unavailable HORANI, NONA Referring Unavailable HORANI, NONA Referring Unavailable FELECIA CORDOBA Referring Unavailable GOMEZ JAY Attending Unavailable STEPHEN, SAMAR Attending Unavailable FENG CHRISTIE Attending Unavailable RICHA VIRAMONTES Attending Unavailable NONA ALFARO Referring Unavailable FENG CHRISTIE Attending Unavailable MESERET MAC Referring Unavailable FEDERIAC ANDERSON Referring Unavailable HERMINIA LI Referring Unavailable JOSE BETANCUR Referring Unavailable NONA ALFARO Admitting Unavailable TAO HARRISON Attending Unavailable FEDERICA ANDERSON Referring Unavailable Allergies Allergy Classification Reported Allergen(s) Allergy Type Date of Onset Reaction(s) Facility (1 source) No Known Medication Allergies; 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: [No Known Medication Allergies] Propensity to adverse reactions (disorder) [facility] Repository (1 source) ALPRAZolam; 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: [ALPRAZOLAM] Drug Allergy [address] [place] [address] Repository (1 source) amLODIPine; 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: [AMLODIPINE] Drug Allergy 4 [facility] Repository (1 source) Lisinopril; 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: [LISINOPRIL] Drug Allergy [address] [place] [address] Repository Medications Current Medications Medication Drug Class(es) [...] Coronary arteriosclerosis; 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: [Atherosclerotic heart disease of [place] coronary artery without angina pectoris] Onset: 3 [...] Episodic Other lower respiratory disease (2 sources) Solitary pulmonary nodule; 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: [Solitary pulmonary nodule] Onset: 4 Episodic Other lower respiratory disease (2 sources) [...] (2 sources) Inflamed seborrheic keratosis 10-31-2020 Episodic Peripheral and visceral atherosclerosis (2 sources) Atherosclerosis of renal artery; 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: [Atherosclerosis of renal artery] Onset: 4 Chronic Residual codes; unclassified (2 sources) Obstructive sleep [...] 12-20-2019 Episodic Other aftercare (1 source) 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 aspirin; 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: [PENITENTIARY CURRENT USE OF ASPIRIN] Onset: 11-26-2022 Episodic Other aftercare (1 source) 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; 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: [OTH PENITENTIARY CURRENT DRUG THERAPY] Onset: 11-26-2022 Episodic Other [...] Test Name Value Interpretation Reference Range Facility Telemedicine 07-20-2024 Telemedicine [id number] Aby Madrigal 1965 F Date Provider Department Center 07/20/2024 RICHA MERINO ONC DCC Family History Problem Relation Age of Onset Lung cancer Mother No Known Problems Father Lung cancer Sister Family Status - Relation Status Age at Mother Father Sister Level of Service:55140 ME PHYS/QHP TELEPHONE EVALUATION 21-30 MIN () Reason for Visit and Comments: 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. CT CHEST 04-21-24- PET 06-21-24 Films requested 07-18-24 HAVING HARD TIME GETTING FILMS FROM [facility] AGAIN. Ginny at [facility] ([phone] direct line) is working on sending them. CHECK [facility] FOR FILMS PLEASE Normal [facility] 37on 07-18-2024 37 It was great to meet [...] lab work done at one of these [facility] Lab Sites The results will then come straight to me I appreciate it [facility] [address], [place] Hours Wednesday - Wednesday 8 AM - 4PM (Closed 12 - 12:30 PM daily) Phone: [facility] L[facility] [address] Hours: Wednesday - Wednesday 6 AM - 5 PM Saturday: 7 AM - 2 PM Phone: [address] [place] Hours: Wednesday - Wednesday 7 AM - 3:30 PM Phone: [facility] [address] [place] [address] Hours: Wednesday 7 AM - 5:30 PM Phone: [facility] [address], [place] Hours: Wednesday 8 AM - 4:30 PM Phone: [facility] EDNURSon 07-18-2024 EDNURS ADR and relevant inf o reported to [facility] in pharmacy d/t safety net being down. Viet Kelly RN 07/18/24 1139 [facility] EDNURS SENT FROM MD OFFICE RE: LOW BP; RECENT DC FROM [facility] FOR SAME [facility] EDPROVon 07-18-2024 EDPROV HPI Chief Complaint Patient presents with Hypotension Initial assessment completed by Dr Li at 09. Aby Madrigal is a 59 y.o. female [...] new meds yesterday. History provided by: Patient utility driver used: No [place] Coma Scale Score: 15 Patient History Past [...] by mouth i (more content not included)... [facility] Office Visiton 07-18-2024 Follow-up visit [id number] Aby Madrigal 1965 F Date Provider Department Center 07/18/2024 [id number], [facility] [email or web address] ENDOCR [facility] [[email or web address]] Family History Problem Relation Age of Onset Lung cancer Mother No Known Problems Father Lung cancer Sister Family Status - Relation Status Age at Mother Father Sister Level of Service:46638 ME OFFICE/OUTPATIENT NEW MODERATE MDM 45 MINUTES Reason for Visit and Comments: Nodules [Other] [facility] Follow-up visit [id number] Aby Madrigal 1965 F Date Provider Department [place] 07/18/2024 [id number] [facility] [[email or web address]] ENDOCR [facility] [[email or web address]] Family History Problem Relation Age of Onset Lung cancer Mother No Known Problems Father Lung cancer Sister Family Status - Relation Status Age at Mother Father Sister Level of Service: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 I am calling you to follow up [...] No Patient Name Aby Madrigal Date 07/13/24 [facility] Telephoneon 07-13-2024 Telephone [id number] Aby Madrigal 1965 F Date Provider Department [facility] 07/13/2024 GINNY MALONEY [facility] C Family History Problem Relation Age of Onset Lung cancer Mother No Known Problems Father Lung cancer Sister Family Status - Relation Status Age at Mother Father Sister Reason for Visit and Comments: Hospital Follow-up [832] Normal [facility] 30on 07-12-2024 30 The patient is [...] to address these barriers include . Normal [facility] ANTI-XA (HEPARIN LEVEL)on HEPARIN UNFRACTIONATED (U/ML) IN PPP BY CHROMOGENIC METHOD 0.60 IU/mL Normal 0.3-0.7 [facility] Comment on above: Order Comment: Waive d Testing in the ED is performed under the ED CLIA certificate #[id number]. Result Comment: Radha roxaban and Apixaban will interfere with the anti Xa assay used to monitor UFH and LMWH. Performed By: #### L [id number] #### [facility] ([facility]) [address] [place] [address] BASIC METABOLIC PANELon 06-23 Anion gap [Moles/Vol] 10 mmol/L Normal 7-20 [facility] Comment on above: Performed By: #### L [id number] #### [facility] ([facility]) [address] [place] [address] Calcium [Mass/Vol] 8.8 mg/dL Normal 8.6-10.3 [facility] Comment on above: Performed By: #### L [id number] #### [facility] ([facility]) [address] [place] [address] Chloride [Moles/Vol] 108 mmol/L High 98-107 [facility] Comment on above: Performed By: #### L [id number] #### [facility] [address] [place] [address] CO2 [Moles/Vol] 27 mmol/L Normal 21-31 [facility] Comment on above: Performed By: #### L [id number] #### [facility] (BEAKER) [address] [place] [address] Creatinine [Mass/Vol] 0.89 mg/dL Normal 0.60-1.20 [facility] Comment on above: Performed By: #### L [id number] #### [facility] ([facility]) [address] [place] [address] GLOMERULAR FILTRATION RATE ML/MIN/1.73 SQ M.PREDICTED 74.2 mL/min/1.73m*2 Normal >60.[address] [facility] Comment on above: Result Comment: The [facility]???s estimated glomerular filtration rate (eGFR) will [...] group of individuals. Performed By: #### L [id number] #### [facility] ([facility]) [address] [place] [address] Glucose [Mass/Vol] 109 mg/dL High 70-100 [facility] Comment on above: Performed By: #### L [id number] #### [facility] ([facility]) [address] [place] [address] Potassium [Moles/Vol] 3.4 mmol/L Low 3.5-5.1 [facility] Comment on above: Performed By: #### L [id number] #### [facility] ([facility]) [address] [place] [address] Sodium [Moles/Vol] 142 mmol/L Normal 136-145 [facility] Comment on above: Performed By: #### L [id number] #### [facility] ([facility]) [address] [place] [address] Urea nitrogen [Mass/Vol] 11 mg/dL Normal 7-25 [facility] Comment on above: Performed By: #### L [id number] #### [facility] ([facility]) [address] [place] [address] UREA NITROGEN/CREATININE (MASS RATIO) IN SER/PLAS 12.4 Normal [facility] Comment on above: Performed By: #### L [id number] #### [facility] ([facility]) [address] [place] [address] CBC WITH AUTO DIFFERENTIALon 07-12-2024 Basophils (Bld) [#/Vol] 0.04 10*3/uL Normal 0.00-0.20 [facility] Comment on above: Performed By: #### L [id number] #### [facility] ([facility]) [address] [place] [address] Basophils/100 WBC (Bld) 0.6 % Normal 0.0-1.0 [facility] Comment on above: Performed By: #### L [id number] #### [facility] ([facility]) [address] [place] [address] Eosinophils (Bld) [#/Vol] 0.22 10*3/uL Normal 0.00-0.50 [facility] Comment on above: Performed By: #### L [id number] #### [facility] ([facility]) [address] [place] [address] Eosinophils/100 WBC (Bld) 3.5 % Normal 0.0-6.0 [facility] Comment on above: Performed By: #### L [id number] #### [facility] ([facility]) [address] [place] [address] Erythrocyte distribution width (RBC) [Ratio] 14.5 % Normal 11.5-15.0 [facility] Comment on above: Performed By: #### L [id number] #### [facility] ([facility]) [address] [place] [address] ERYTHROCYTE MEAN CORPUSCULAR HEMOGLOBIN CONCENTRATION (G/DL) BY AUTOMATED 32.7 g/dL Normal 32.0-35.[address] [facility] Comment on above: Performed By: #### L [id number] #### [facility] ([facility]) [address] [place] [address] Hematocrit (Bld) [Volume fraction] 34.2 % Low 36.0-48.0 [facility] Comment on above: Performed By: #### L [id number] #### [facility] ([facility]) [address] [place] [address] Hemoglobin (Bld) [Mass/Vol] 11.2 g/dL Low 12.0-15.0 [facility] Comment on above: Performed By: #### L [id number] #### [facility] [address] [place] [address] Immature granulocytes (Bld) [#/Vol] 0.01 10*3/uL Normal 0.00-0.20 [facility] Comment on above: Performed By: #### L [id number] #### [facility] ([facility]) [address] [place] [address] Immature granulocytes/100 WBC (Bld) 0.2 % Normal 0.0-1.0 [facility] Comment on above: Performed By: #### L [id number] #### [facility] ([facility]) [address] [place] [address] Lymphocytes (Bld) [#/Vol] 2.37 10*3/uL Normal 1.20-4.00 [facility] Comment on above: Performed By: #### L [id number] #### [facility] ([facility]) [address] [place] [address] Lymphocytes/100 WBC (Bld) 37.8 % Normal 20.0-45.0 [facility] Comment on above: Performed By: #### L [id number] #### [facility] ([facility]) [address] [place] [address] MCH (RBC) [Entitic mass] 27.4 pg Normal 27.0-33.0 [facility] Comment on above: Performed By: #### L [id number] #### [facility] ([facility]) [address] [place] [address] MCV (RBC) [Entitic vol] 83.6 fL Normal 82.0-98.0 [facility] Comment on above: Performed By: #### L [id number] #### [facility] ([facility]) [address] [place] [address] Monocytes (Bld) [#/Vol] 0.43 10*3/uL Normal 0.10-1.00 [facility] Comment on above: Performed By: #### L [id number] #### [facility] ([facility]) [address] [place] [address] Monocytes/100 WBC (Bld) 6.9 % Normal 5.0-12.0 [facility] Comment on above: Performed By: #### L [id number] #### [facility] ([facility]) [address] [place] [address] Neutrophils (Bld) [#/Vol] 3.20 10*3/uL Normal 1.60-7.60 [facility] Comment on above: Performed By: #### L [id number] #### [facility] ([facility]) [address] [place] [address] Neutrophils/100 WBC (Bld) 51.0 % Normal 40.0-72.0 [facility] Comment on above: Performed By: #### L [id number] #### [facility] ([facility]) [address] [place] [address] NRBC (PER 100 WBCS) BY AUTOMATED COUNT 0.0 % Normal 0 [facility] Comment on above: Performed By: #### L [id number] #### [facility] ([facility]) [address] [place] [address] PLATELETS (10*3/UL) IN BLOOD AUTOMATED COUNT 223 10*3/uL Normal 150-400 [facility] Comment on above: Performed By: #### L [id number] #### [facility] [address] [place] [address] RBC (Bld) [#/Vol] 4.09 10*6/uL Normal 3.80-5.00 [facility] Comment on above: Performed By: #### L [id number] #### [facility] ([facility]) [address] [place] [address] WBC (Bld) [#/Vol] 6.27 10*3/uL Normal 4.00-10.60 [facility] Comment on above: Performed By: #### L [id number] #### [facility] ([facility]) [address] [place] [address] MAGNESIUMon 07-12-2024 Magnesium [Mass/Vol] 1.7 mg/dL Low 1.9-2.7 [facility] Comment on above: Performed By: #### L [id number] #### [facility] ([facility]) [address] [place] [address] POCT GLUCOSE METER UNSOLICIT ED RESULTSon 07-12-2024 Glucose [Mass/Vol] 102 mg/dL Normal 70-105 [facility] Comment on above: Order Comment: Basel ine aPTT before initiating heparin infusion. Result Comment: brad [email or web address] Performed By: #### L [id number] #### [facility] ([facility]) [address] [place] [address] TROPONIN Ion 07-12-2024 Troponin I.cardiac [Mass/Vol] 0.01 ng/mL Normal 0.00-0.04 [facility] Comment on above: Performed By: #### L [id number] #### [facility] ([facility]) [address] [place] [address] 30on 07-11-2024 30 The patient is Moderately [...] and maintained or improved Outcome: Progressing Normal [facility] 30 The patient is Moderately Stable - Low risk of patient condition declining or worsening The patient's goals for the shift include no chest pain The clinical goals for the shift include stable vital/no chest pain Over the shift, the patient did not make progress toward the following goals. Barriers to progression include . Recommendations to address these barriers include . Normal [facility] ALDOSTERONEon 07-11-2024 ALDOSTERONE (NG/DL) IN SER/PLAS 4.9 ng/dL Normal [facility] Comment on above: Result Comment: INTE [...] reference intervals for this test in the [employer] [facility] Test Directory (Make Meaning). Performed By: [employer] [address] [place] [address] Hydroelectric Plant Maintainer: Navneet Simeon MD, PhD CLIA Number: [id number] Performed By: #### L [id number] #### [facility] (BEAKER) [address] [place] [address] ANTI-XA (HEPARIN LEVEL)on HEPARIN UNFRACTIONATED (U/ML) IN PPP BY CHROMOGENIC METHOD 0.42 IU/mL Normal 0.3-0.7 [facility] Comment on above: Order Comment: Check anti-Xa level every 6 hours while on heparin infusion, or per protocol. Result Comment: Radha roxaban and Apixaban will interfere with the anti Xa assay used to monitor UFH and LMWH. Performed By: #### L [id number] #### [facility] ([facility]) [address] [place] [address] HEPARIN UNFRACTIONATED (U/ML) IN PPP BY CHROMOGENIC METHOD 0.20 IU/mL Low 0.3-0.7 [facility] Comment on above: Order Comment: Waive d Testing in the ED is performed under the ED CLIA certificate #[id number]. Result Comment: Radha roxaban and Apixaban will interfere with the anti Xa assay used to monitor UFH and LMWH. Performed By: #### L [id number] #### [facility] ([facility]) [address] [place] [address] APTTon 07-11-2024 ACTIVATED PARTIAL THROMBOPLASTIN TIME IN PPP BY COAGULATION ASSAY 43.0 Seconds High 25.0-35.0 [facility] Comment on above: Result Comment: Clin ical significance of the APTT is questionable in the presence of heparin. Performed By: #### L [id number] #### [facility] ([facility]) [address] [facility] [address] BASIC METABOLIC PANELon 06-23 Anion gap [Moles/Vol] 9 mmol/L Normal 7-20 [facility] Comment on above: Performed By: #### L [id number] #### [facility] ([facility]) [address] [place] [address] Calcium [Mass/Vol] 8.8 mg/dL Normal 8.6-10.3 [facility] Comment on above: Performed By: #### L [id number] #### [facility] ([facility]) [address] [facility] [place] [address] Chloride [Moles/Vol] 108 mmol/L High 98-107 [facility] Comment on above: Performed By: #### L [id number] #### [facility] ([facility]) [address] [place] [address] CO2 [Moles/Vol] 28 mmol/L Normal 21-31 [facility] Comment on above: Performed By: #### L [id number] #### [facility] [address] [place] [address] Creatinine [Mass/Vol] 1.09 mg/dL Normal 0.60-1.20 [facility] Comment on above: Performed By: #### L [id number] #### [facility] ([facility]) [address] [place] [address] GLOMERULAR FILTRATION RATE ML/MIN/1.73 SQ M.PREDICTED 58.2 mL/min/1.73m*2 Low >60.[address] [facility] Comment on above: Result Comment: [facility]???s estimated glomerular filtration rate (eGFR) will [...] individuals. Performed By: #### L [id number] #### [facility] ([facility]) [address] [place] [address] Glucose [Mass/Vol] 113 mg/dL High 70-100 [facility] Comment on above: Performed By: #### L [id number] #### [facility] ([facility]) [address] [place] [address] Potassium [Moles/Vol] 3.4 mmol/L Low 3.5-5.1 [facility] Comment on above: Performed By: #### L [id number] #### [facility] ([facility]) [address] [place] [address] Sodium [Moles/Vol] 142 mmol/L Normal 136-145 [facility] Comment on above: Performed By: #### L [id number] #### [facility] ([facility]) [address] [place] [address] Urea nitrogen [Mass/Vol] 14 mg/dL Normal 7-25 [facility] Comment on above: Performed By: #### L [id number] #### [facility] ([facility]) [address] [facility] [place] [address] UREA NITROGEN/CREATININE (MASS RATIO) IN SER/PLAS 12.8 Normal [facility] Comment on above: Performed By: #### L [id number] #### [facility] ([facility]) [address] [place] [address] CBC WITH AUTO DIFFERENTIALon 07-11-2024 Basophils (Bld) [#/Vol] 0.04 10*3/uL Normal 0.00-0.20 [facility] Comment on above: Performed By: #### L [id number] #### [facility] ([facility]) [address] [place] [address] Basophils/100 WBC (Bld) 0.6 % Normal 0.0-1.0 [facility] Comment on above: Performed By: #### L [id number] #### [facility] ([facility]) [address] [place] [address] Eosinophils (Bld) [#/Vol] 0.16 10*3/uL Normal 0.00-0.50 [facility] Comment on above: Performed By: #### L [id number] #### [facility] ([facility]) [address] [place] [address] Eosinophils/100 WBC (Bld) 2.2 % Normal 0.0-6.0 [facility] Comment on above: Performed By: #### L [id number] #### [facility] ([facility]) [address] [place] [address] Erythrocyte distribution width (RBC) [Ratio] 14.6 % Normal 11.5-15.0 [facility] Comment on above: Performed By: #### L [id number] #### [facility] ([facility]) [address] [place] [address] ERYTHROCYTE MEAN CORPUSCULAR HEMOGLOBIN CONCENTRATION (G/DL) BY AUTOMATED 32.0 g/dL Normal 32.0-35.[address] [facility] Comment on above: Performed By: #### L [id number] #### [facility] ([facility]) [address] [place] [address] Hematocrit (Bld) [Volume fraction] 36.2 % Normal 36.0-48.0 [facility] Comment on above: Performed By: #### L [id number] #### [facility] ([facility]ER) [address] [place] [address] Hemoglobin (Bld) [Mass/Vol] 11.6 g/dL Low 12.0-15.0 [facility] Comment on above: Performed By: #### L [id number] #### [facility] ([facility]) [address] [place] [address] Immature granulocytes (Bld) [#/Vol] 0.02 10*3/uL Normal 0.00-0.20 [facility] Comment on above: Performed By: #### L [id number] #### [facility] ([facility]) [address] [address] Immature granulocytes/100 WBC (Bld) 0.3 % Normal 0.0-1.0 [facility] Comment on above: Performed By: #### L [id number] #### [facility] ([facility]) [address] [address] Lymphocytes (Bld) [#/Vol] 2.34 10*3/uL Normal 1.20-4.00 [facility] Comment on above: Performed By: #### L [id number] #### [facility] ([facility]) [address] [place] [address] Lymphocytes/100 WBC (Bld) 32.6 % Normal 20.0-45.0 [facility] Comment on above: Performed By: #### L [id number] #### [facility] [facility] [address] [place] [address] MCH (RBC) [Entitic mass] 27.2 pg Normal 27.0-33.0 [facility] Comment on above: Performed By: #### L [id number] #### [facility] ([facility]) [address] [place] [address] MCV (RBC) [Entitic vol] 85.0 fL Normal 82.0-98.0 [facility] Comment on above: Performed By: #### L [id number] #### [facility] ([facility]) [address] [place] [address] Monocytes (Bld) [#/Vol] 0.49 10*3/uL Normal 0.10-1.00 [facility] Comment on above: Performed By: #### L [id number] #### [facility] ([facility]) [address] [place] [address] Monocytes/100 WBC (Bld) 6.8 % Normal 5.0-12.0 [facility] Comment on above: Performed By: #### L [id number] #### [facility] ([facility]) [address] [place] [address] Neutrophils (Bld) [#/Vol] 4.13 10*3/uL Normal 1.60-7.60 [facility] Comment on above: Performed By: #### L [id number] #### [facility] ([facility]) [address] [place] [address] Neutrophils/100 WBC (Bld) 57.5 % Normal 40.0-72.0 [facility] Comment on above: Performed By: #### L [id number] #### [facility] ([facility]) [address] [place] [address] NRBC (PER 100 WBCS) BY AUTOMATED COUNT 0.0 % Normal 0 [facility] Comment on above: Performed By: #### L [id number] #### [facility] ([facility]) [address] [place] [address] PLATELETS (10*3/UL) IN BLOOD AUTOMATED COUNT 245 10*3/uL Normal 150-400 [facility] Comment on above: Performed By: #### L [id number] #### [facility] [address] [place] [address] RBC (Bld) [#/Vol] 4.26 10*6/uL Normal 3.80-5.00 [facility] Comment on above: Performed By: #### L [id number] #### [facility] ([facility]) [address] [place] [address] WBC (Bld) [#/Vol] 7.18 10*3/uL Normal 4.00-10.60 [facility] Comment on above: Performed By: #### L [id number] #### [facility] ([facility]) [address] [place] [address] CONSULTon 07-11-2024 CONSULT -- Attestation signed by [...] Brown is the endocrine surgeon in the [place] area that would be most appropriate and [...] with plan for outpatient follow up with [facility]ocrinology Meseret Mac MD Cardiology Consult Note Reason for Consult: Chest pain HPI: Aby Madrigal is a 59 y.o. female patient is presenting as a transfer from [facility] for the evaluation of chest pain. [...] medical history of Abnormal ECG, Diabetes mellitus ([facility]), Hyperlipidemia, Hypertension, Obstructive sleep apnea, Panic attacks, and Stroke ([facility]). Surgical History She has a past surgical [...] Value Ventricular Rate 56 Atrial Rate 56 ME Interval 180 QRS DURATION 94 QT Interval 430 QTC (more content not included)... Normal [facility] EDPROVon 07-11-2024 EDPROV HPI Chief Complaint [...] Pt states she was trasnfered here [place] transferred to cardiology. Pt states she had a cardiac stent placed last week. She denies fever, coughing, vomiting, abdominal pain. She admits diarrhea. She felt better when given ativan and worse when she was given morphine. She has had her gallbladder removed. History provided by: Patient utility driver used: No Chest Pain Associated symptoms: no abdominal pain, no cough, no fever and no vomiting [place] Coma Scale Score: 15 Patient History Past [...] ED Course & MDM Medical Decision Making I, Basilia senior, documented on behalf of Dr. Anderson. Chief complaint chest pain Plan of Care: APTT, Troponin I, CBC, Protime-INR, BMP Attestation: Provider Statement SALVADOR: Provider Statement 2nd Scribe. By electronically signing this emergency patient record, the Emergency Physician/ACRYLIC FABRICATOR/PA-C attests that all entries made into the electronic medical record by the scribe prior to the Physician/ACRYLIC FABRICATOR/PA-C signature reflect an accurate accounting of the evaluation and care rendered by that Emergency Physician/ACRYLIC FABRICATOR/PA-C. The Emergency Physician/ACRYLIC FABRICATOR/PA-C assumes full responsibility for those entries. The Emergency Physician/ACRYLIC FABRICATOR/PA-C also attests that any patient testing or treatment that was instituted by nursing staff. Normal [facility] EDPROV HPI Chief Complaint Patient presents [...] Pt states she was trasnfered here [place] be transferred to cardiology. Pt states she had a cardiac stent placed last week. She denies fever, coughing, vomiting, abdominal pain. She admits diarrhea. She felt better when given ativan and worse when she was given morphine. She has had her gallbladder removed. History provided by: Patient utility driver used: No Chest Pain Associated symptoms: no abdominal pain, no cough, no fever and no vomiting [place] Coma Scale Score: 15 Patient History Past [...] MDM ED Course as of 07/11/24 1256 [facility] Jul 11, 2024 1041 Cardiology consulted [AT] ED Course User Index [AT] Federica Anderson MD Diagnoses as of 07/11/24 1256 NSTEMI (non-ST elevated myocardial infarction) ([facility]) Medical Decision Making Amount and/or Complexity of Data Reviewed Labs: ordered. Decision-making details documented in ED Course. ECG/medicine tests: ordered and independent interpretation performed. Decision-making details documented in ED Course. Risk Drug therapy requiring intensive monitoring for toxicity. Decision regarding hospitalization. Minor surgery with identified risk factors. I, Basilia diallo (more content not included)... Invalid Interpretation Code [facility] POCT GLUCOSE METER UNSOLICIT ED RESULTSon 07-11-2024 Glucose [Mass/Vol] 122 mg/dL High 70-105 [facility] Comment on above: Order Comment: Waive d Testing in the ED is performed under the ED CLIA certificate #[id number]. Result Comment: [email or web address] Performed By: #### L [id number] #### [facility] ([facility]ER) [address] [place] [address] PROTIME-INRon 07-11-2024 INR IN PPP BY COAGULATION ASSAY 1.00 Normal 0.90-1.10 [facility] Comment on above: Result Comment: ACCC [...] RANGE. CHEST 1995;108:[id number]. Performed By: #### L [id number] #### [facility] ([employer]) [address] [place] [address] PROTHROMBIN TIME (PT) IN PPP BY COAGULATION ASSAY 13.2 Seconds Normal 12.3-14.8 [facility] Comment on above: Performed By: #### L [id number] #### [facility] ([employer]) [address] [place] [address] RENIN ACTIVITYon 07-11-2024 RENIN ACTIVITY <0.1 Normal [facility] Comment on above: Result Comment: INTE RPRETIVE INFORMATION: Renin Activity Adult, Normal sodium diet: Supine ................. 0.2-1.6 ng/mL/hr Upright ................ 0.5-4.0 ng/mL/hr Children, Normal sodium diet, Supine: [place] (1-7 days) ..... 2.0-35.0 ng/mL/hr Cord blood [...] developed and its performance characteristics determined by [employer]. It has not been cleared or approved by the US Food and Drug Administration. This test was performed in a CLIA certified laboratory and is intended for clinical purposes. Performed By: [employer] [address] [place] [address] [employer] Maintainer: Navneet Simeon MD, PhD CLIA Number: [id number] Performed By: #### L [id number] #### [facility] ([facility]) [address] [place] [address] TROPONIN Ion 07-11-2024 Troponin I.cardiac [Mass/Vol] 0.01 ng/mL Normal 0.00-0.04 [facility] Comment on above: Performed By: #### L [id number] #### [facility] ([facility]) [address] [place] [address] Office Visiton 07-10-2024 Follow-up visit [id number] Aby Madrigal 1965 F Date Provider Department Center 07/10/2024 [id number]-GLSKJOBIJAN VAZQUEZ Family History Problem Relation Age of Onset Lung cancer Mother No Known Problems Father Lung cancer Sister Family Status - Relation Status Age at Mother Father Sister Level of Service:14224 ME OFFICE/OUTPATIENT ESTABLISHED MOD MDM 30 MIN Reason for Visit and Comments: Coronary Artery Disease [187] Post-Cath [731] Normal [facility] 36on 07-03-2024 36 Post Discharge Call Good morning, I am Ginny Garcia, RN a lead nurse from [facility]. I am calling you to follow up [...] No Patient Name Aby Madrigal Date 07/03/24 [facility] Telephoneon 07-03-2024 Telephone [id number] Aby Madrigal 1965 F Date Provider Department Center 07/03/2024 GINNY MALONEY [facility] Family History Problem Relation Age of Onset Lung cancer Mother No Known Problems Father Lung cancer Sister Family Status - Relation Status Age at Mother Father Sister Reason for Visit and Comments: Hospital Follow-up [832] Normal [facility] 30on 07-01-2024 30 The patient is [...] and maintained or improved Outcome: Progressing Normal [facility] BASIC METABOLIC PANELon 08- Anion gap [Moles/Vol] 14 mmol/L Normal 7-20 [facility] Comment on above: Performed By: #### L [id number] #### [facility] ([facility]) [address] [place] [address] Calcium [Mass/Vol] 8.2 mg/dL Low 8.6-10.3 [facility] Comment on above: Performed By: #### L [id number] #### [facility] ([facility]) [address] [place] [address] Chloride [Moles/Vol] 106 mmol/L Normal 98-107 [facility] Comment on above: Performed By: #### L [id number] #### [facility] (BE[facility]ER) [address] [place] [address] CO2 [Moles/Vol] 25 mmol/L Normal 21-31 [facility] Comment on above: Performed By: #### L [id number] #### [facility] (BEAKER) [address] [place] [address] Creatinine [Mass/Vol] 0.91 mg/dL Normal 0.60-1.20 [facility] Comment on above: Performed By: #### L [id number] #### [facility] (BE[facility]ER) [address] [place] [address] GLOMERULAR FILTRATION RATE ML/MIN/1.73 SQ M.PREDICTED 72.2 mL/min/1.73m*2 Normal >60.[address] [facility] Comment on above: Result Comment: The [facility]???s estimated glomerular filtration rate (eGFR) will [...] individuals. Performed By: #### L [id number] #### [facility] ([facility]) [address] [place] [address] Glucose [Mass/Vol] 101 mg/dL High 70-100 [facility] Comment on above: Performed By: #### L [id number] #### [facility] ([facility]) [address] [place] [address] Potassium [Moles/Vol] 3.5 mmol/L Normal 3.5-5.1 [facility] Comment on above: Performed By: #### L [id number] #### [facility] ([facility]) [address] [place] [address] Sodium [Moles/Vol] 141 mmol/L Normal 136-145 [facility] Comment on above: Performed By: #### L [id number] #### [facility] ([facility]) [address] [place] [address] Urea nitrogen [Mass/Vol] 13 mg/dL Normal 7-25 [facility] Comment on above: Performed By: #### L [id number] #### [facility] ([facility]) [address] [place] [address] UREA NITROGEN/CREATININE (MASS RATIO) IN SER/PLAS 14.3 Normal [facility] Comment on above: Performed By: #### L [id number] #### [facility] ([facility]) [address] [place] [address] CBCon 07-01-2024 Erythrocyte distribution width (RBC) [Ratio] 15.4 % High 11.5-15.0 [facility] Comment on above: Performed By: #### L [id number] #### [facility] ([facility]) [address] [place] [address] ERYTHROCYTE MEAN CORPUSCULAR HEMOGLOBIN CONCENTRATION (G/DL) BY AUTOMATED 32.1 g/dL Normal 32.0-35.[address] [facility] Comment on above: Performed By: #### L [id number] #### [facility] ([facility]ER) [address] [place] [address] Hematocrit (Bld) [Volume fraction] 38.6 % Normal 36.0-48.0 [facility] Comment on above: Performed By: #### L [id number] #### [facility] [address] [place] [address] Hemoglobin (Bld) [Mass/Vol] 12.4 g/dL Normal 12.0-15.0 [facility] Comment on above: Performed By: #### L [id number] #### [facility] ([facility]) [address] [place] [address] MCH (RBC) [Entitic mass] 26.9 pg Low 27.0-33.0 [facility] Comment on above: Performed By: #### L [id number] #### [facility] ([facility]) [address] [place] [address] MCV (RBC) [Entitic vol] 83.7 fL Normal 82.0-98.0 [facility] Comment on above: Performed By: #### L [id number] #### [facility] ([facility]) [address] [place] [address] PLATELETS (10*3/UL) IN BLOOD AUTOMATED COUNT 238 10*3/uL Normal 150-400 [facility] Comment on above: Performed By: #### L [id number] #### [facility] ([facility]) [address] [place] [address] RBC (Bld) [#/Vol] 4.61 10*6/uL Normal 3.80-5.00 [facility] Comment on above: Performed By: #### L [id number] #### [facility] ([facility]) [address] [place] [address] WBC (Bld) [#/Vol] 7.04 10*3/uL Normal 4.00-10.60 [facility] Comment on above: Performed By: #### L [id number] #### [facility] [address] [place] [address] LIPID PANELon 07-01-2024 CHOL/HDL 3.8 mg/dL Normal [facility] Comment on above: Performed By: #### L [id number] #### [facility] ([facility]) [address] [place] [address] Cholesterol [Mass/Vol] 128 mg/dL Normal 120-200 [facility] Comment on above: Performed By: #### L [id number] #### [facility] ([facility]) [address] [place] [address] Magnesium [Mass/Vol] 87 mg/dL Normal 40-149 [facility] Comment on above: Result Comment: TRIG LYCERIDE REFERENCE RANGE: 20 YEARS AND OLDER CARDIOVASCULAR RISK LESS THAN 150 mg/dL LOW RISK 150 TO 199 mg/dL BORDERLINE RISK 200 mg/dL AND GREATER HIGH RISK Performed By: #### L [id number] #### [facility] ([facility]) [address] [place] [address] Magnesium [Mass/Vol] 77 mg/dL Normal 0-160 [facility] Comment on above: Performed By: #### L [id number] #### [facility] ([facility]) [address] [place] [address] Magnesium [Mass/Vol] 34 mg/dL Normal 23-92 [facility] Comment on above: Performed By: #### L [id number] #### [facility] ([facility]) [address] [place] [address] NON HDL CHOL. (LDL+VLDL) 94 Normal [facility] Comment on above: Performed By: #### L [id number] #### [facility] [address] [place] [address] TOTAL VLDL-C 17 mg/dL Normal 0-[address] [facility] Comment on above: Performed By: #### L [id number] #### [facility] [address] [place] [address] MAGNESIUMon 07-01-2024 Magnesium [Mass/Vol] 2.0 mg/dL Normal 1.9-2.7 [facility] Comment on above: Performed By: #### L [id number] #### [facility] ([facility]) [address] [place] [address] NURSNOTEon 07-01-2024 NURSNOTE Discharge instructio ns given, reviewed, questions, answered, signed, copy received. Normal [facility] POCT GLUCOSE METER UNSOLICIT ED RESULTSon 07-01-2024 Glucose [Mass/Vol] 124 mg/dL High 70-105 [facility] Comment on above: Order Comment: Waive d Testing in the ED is performed under the ED CLIA certificate #[id number]. Result Comment: [email or web address] Performed By: #### L [id number] #### [facility] ([facility]) [address] [place] [address] Glucose [Mass/Vol] 106 mg/dL High 70-105 [facility] Comment on above: Order Comment: Waive d Testing in the ED is performed under the ED CLIA certificate #[id number]. Result Comment: [email or web address] Performed By: #### L [id number] #### [facility] ([facility]) [address] [place] [address] TROPONIN Ion 07-01-2024 Troponin I.cardiac [Mass/Vol] 0.09 ng/mL High 0.00-0.04 [facility] Comment on above: Performed By: #### L [id number] #### [facility] ([facility]) [address] [place] [address] 30on 06-30-2024 30 The patient is Moderately Stable - Low risk of patient condition declining or worsening The patient's goals for the shift include comfort, rest The clinical goals for the shift include stable vitals, comfort Problem: Pain - Adult Goal: Verbalizes/displays adequate comfort level or baseline comfort level Outcome: Not Progressing Normal [facility] 30 Daily Case Managemen t Update [...] PT Recommendations: OT Recommendations: New Consults: Normal [facility] 30 The patient is Moderately Stable - Low risk of patient condition declining or worsening The patient's goals for the shift include COMFORT The clinical goals for the shift include VSS Over the shift, the patient did not make progress toward the following goals. Barriers to progression include . Recommendations to address these barriers include . Normal [facility] ANTI-XA (HEPARIN LEVEL)on HEPARIN UNFRACTIONATED (U/ML) IN PPP BY CHROMOGENIC METHOD 0.64 IU/mL Normal 0.3-0.7 [facility] Comment on above: Order Comment: Check anti-Xa level every 6 hours while on heparin infusion, or per protocol. Result Comment: [place] roxaban and Apixaban will interfere with the anti Xa assay used to monitor UFH and LMWH. Performed By: #### L [id number] #### [facility] ([facility]) [address] [place] [address] BASIC METABOLIC PANELon Anion gap [Moles/Vol] 11 mmol/L Normal 7-20 [facility] Comment on above: Performed By: #### L [id number] #### [facility] ([facility]) [address] [place] [address] Calcium [Mass/Vol] 8.3 mg/dL Low 8.6-10.3 [facility] Comment on above: Performed By: #### L [id number] #### [facility] ([facility]) [address] [place] [address] Chloride [Moles/Vol] 110 mmol/L High 98-107 [facility] Comment on above: Performed By: #### L [id number] #### [facility] ([facility]) [address] [place] [address] CO2 [Moles/Vol] 26 mmol/L Normal 21-31 [facility] Comment on above: Performed By: #### L [id number] #### [facility] ([facility]) [address] [place] [address] Creatinine [Mass/Vol] 0.81 mg/dL Normal 0.60-1.20 [facility] Comment on above: Performed By: #### L [id number] #### [facility] ([facility]) [address] [place] [address] GLOMERULAR FILTRATION RATE ML/MIN/1.73 SQ M.PREDICTED 83.1 mL/min/1.73m*2 Normal >60.[address] [facility] Comment on above: Result Comment: The [facility]???s estimated glomerular filtration rate (eGFR) will [...] individuals. Performed By: #### L [id number] #### [facility] ([facility]) [address] [place] [address] Glucose [Mass/Vol] 110 mg/dL High 70-100 [facility] Comment on above: Performed By: #### L [id number] #### [facility] ([facility]) [address] [place] [address] Potassium [Moles/Vol] 3.7 mmol/L Normal 3.5-5.1 [facility] Comment on above: Performed By: #### L [id number] #### [facility] ([facility]) [address] [place] [address] Sodium [Moles/Vol] 143 mmol/L Normal 136-145 [facility] Comment on above: Performed By: #### L [id number] #### [facility] ([facility]) [address] [place] [address] Urea nitrogen [Mass/Vol] 10 mg/dL Normal 7-25 [facility] Comment on above: Performed By: #### L [id number] #### [facility] [address] [place] [address] UREA NITROGEN/CREATININE (MASS RATIO) IN SER/PLAS 12.3 Normal [facility] Comment on above: Performed By: #### L [id number] #### [facility] ([facility]) [address] [place] [address] CBCon 06-30-2024 Erythrocyte distribution width (RBC) [Ratio] 15.3 % High 11.5-15.0 [facility] Comment on above: Performed By: #### L [id number] #### [facility] ([facility]) [address] [place] [address] ERYTHROCYTE MEAN CORPUSCULAR HEMOGLOBIN CONCENTRATION (G/DL) BY AUTOMATED 31.3 g/dL Low 32.0-35.[address] [facility] Comment on above: Performed By: #### L [id number] #### [facility] [address] [place] [address] Hematocrit (Bld) [Volume fraction] 36.7 % Normal 36.0-48.0 [facility] Comment on above: Performed By: #### L [id number] #### [facility] [address] [place] [address] Hemoglobin (Bld) [Mass/Vol] 11.5 g/dL Low 12.0-15.0 [facility] Comment on above: Performed By: #### L [id number] #### [facility] ([facility]AKER) [address] [place] [address] MCH (RBC) [Entitic mass] 26.9 pg Low 27.0-33.0 [facility] Comment on above: Performed By: #### L [id number] #### [facility] ([facility]) [address] [place] [address] MCV (RBC) [Entitic vol] 85.7 fL Normal 82.0-98.0 [facility] Comment on above: Performed By: #### L [id number] #### [facility] ([facility]) [address] [place] [address] PLATELETS (10*3/UL) IN BLOOD AUTOMATED COUNT 243 10*3/uL Normal 150-400 [facility] Comment on above: Performed By: #### L [id number] #### [facility] ([facility]) [address] [place] [address] RBC (Bld) [#/Vol] 4.28 10*6/uL Normal 3.80-5.00 [facility] Comment on above: Performed By: #### L [id number] #### [facility] ([facility]) [address] [place] [address] WBC (Bld) [#/Vol] 7.41 10*3/uL Normal 4.00-10.60 [facility] Comment on above: Performed By: #### L [id number] #### [facility] ([facility]) [address] [place] [address] CONSULTon 06-30-2024 CONSULT Cardiology Consult Note Reason for Consult: NSTEMI, transfer from [facility] HPI: Aby Madrigal, a 59 y.o. female patient, is transferred from [facility] for continuity of care. Past medical history includes: HTN History of TIA DMII HLD SURESH Overweight Patient reports that 3 days ago, she woke up in the mid of the night with indigestion, and a feeling fullness, but no pressure like chest pain. She presented to [facility], where she was found to be [...] Value Ventricular Rate 71 Atrial Rate 71 ME Interval 176 QRS DURATION 92 QT Interval 424 QTC CALCULATION(BAZETT) 460 P [place] 52 R-[place] 19 T Wave [place] 164 Impression Normal sinus rhythm Left ventricular hypertrophy with repolarization abnormality ( R in aVL , [place] product ) Abnormal ECG No previous ECGs available Lab Results Component Value Date TROPONINI 0.10 (H) 06/29/2024 No echocardiogram results found for the past 12 months No nuclear medicine results found for the past 12 months Relevant Imaging Results ECG 12 lead Normal sinu (more content not included)... Normal [facility] HPon 06-30-2024 HP H&P reviewed. The patient was examined and there are no changes to the H&P. 59 y.o. year old female with a PMHx significant for DM2, hypertension presents a direct mission from [facility] with a chief complaint of chest [...] to proceed. Signed, Yris Oakley MD PGY-4 Sample Case Porter Pager: [phone] [facility] POCT GLUCOSE METER UNSOLICIT ED RESULTSon 06-30-2024 Glucose [Mass/Vol] 170 mg/dL High 70-105 [facility] Comment on above: Order Comment: Waive d Testing in the ED is performed under the ED CLIA certificate #[id number]. Result Comment: [email or web address] Performed By: #### L [id number] #### [facility] ([facility]) [address] [place] [address] Glucose [Mass/Vol] 129 mg/dL High 70-105 [facility] Comment on above: Order Comment: Waive d Testing in the ED is performed under the ED CLIA certificate #[id number]. Result Comment: [email or web address] Performed By: #### L [id number] #### [facility] ([facility]) [address] [place] [address] Glucose [Mass/Vol] 167 mg/dL High 70-105 [facility] Comment on above: Order Comment: Waive d Testing in the ED is performed under the ED CLIA certificate #[id number]. Result Comment: [email or web address] Performed By: #### L [id number] #### [facility] ([facility]) [address] [place] [address] TROPONIN Ion 06-30-2024 Troponin I.cardiac [Mass/Vol] 0.07 ng/mL High 0.00-0.04 [facility] Comment on above: Performed By: #### L [id number] #### [facility] ([facility]) [address] [place] [address] Troponin I.cardiac [Mass/Vol] 0.10 ng/mL High 0.00-0.04 [facility] Comment on above: Performed By: #### L [id number] #### [facility] ([facility]) [address] [place] [address] Troponin I.cardiac [Mass/Vol] 0.11 ng/mL Critically high 0.00-0.04 [facility] Comment on above: Result Comment: M-TR OPONIN INITIAL CRITICAL HIGH; RESPUN AND RETESTED Performed By: #### L [id number] #### [facility] ([facility]) [address] [place] [address] 30on 06-29-2024 30 The patient is Moderately Stable - Low risk of patient condition declining or worsening The patient's goals for the shift include COMFORT The clinical goals for the shift include VSS Normal [facility] APTTon 06-29-2024 ACTIVATED PARTIAL THROMBOPLASTIN TIME IN PPP BY COAGULATION ASSAY 34.5 Seconds Normal 25.0-35.0 [facility] Comment on above: Order Comment: Basel ine aPTT before initiating heparin infusion. Result Comment: Clin ical significance of the APTT is questionable in the presence of heparin. Performed By: #### L [id number] #### [facility] ([facility]) [address] [place] [address] B-TYPE NATRIURETIC PEPTIDEon 06-29-2024 Natriuretic peptide B (Bld) [Mass/Vol] 222 pg/mL High 0-100 [facility] Comment on above: Performed By: #### L [id number] #### [facility] ([facility]) [address] [place] [address] CBC WITH AUTO DIFFERENTIALon 06-29-2024 Basophils (Bld) [#/Vol] 0.05 10*3/uL Normal 0.00-0.20 [facility] Comment on above: Performed By: #### L [id number] #### [facility] ([facility]) [address] [place] [address] Basophils/100 WBC (Bld) 0.6 % Normal 0.0-1.0 [facility] Comment on above: Performed By: #### L [id number] #### [facility] ([facility]) [address] [address] Eosinophils (Bld) [#/Vol] 0.18 10*3/uL Normal 0.00-0.50 [facility] Comment on above: Performed By: #### L [id number] #### [facility] ([facility]) [address] [address] Eosinophils/100 WBC (Bld) 2.1 % Normal 0.0-6.0 [facility] Comment on above: Performed By: #### L [id number] #### [facility] ([facility]) [address] [address] Erythrocyte distribution width (RBC) [Ratio] 14.9 % Normal 11.5-15.0 [facility] Comment on above: Performed By: #### L [id number] #### [facility] ([facility]) [address] [address] ERYTHROCYTE MEAN CORPUSCULAR HEMOGLOBIN CONCENTRATION (G/DL) BY AUTOMATED 32.9 g/dL Normal 32.0-35.[address] [facility] Comment on above: Performed By: #### L [id number] #### [facility] [address] [address] Hematocrit (Bld) [Volume fraction] 35.9 % Low 36.0-48.0 [facility] Comment on above: Performed By: #### L [id number] #### [facility] ([facility]) [address] [place] [address] Hemoglobin (Bld) [Mass/Vol] 11.8 g/dL Low 12.0-15.0 [facility] Comment on above: Performed By: #### L [id number] #### [facility] ([facility]) [address] [address] Immature granulocytes (Bld) [#/Vol] 0.03 10*3/uL Normal 0.00-0.20 [facility] Comment on above: Performed By: #### L [id number] #### [facility] ([facility]) [address] [place] [address] Immature granulocytes/100 WBC (Bld) 0.3 % Normal 0.0-1.0 [facility] Comment on above: Performed By: #### L [id number] #### [facility] ([facility]) [address] [address] Lymphocytes (Bld) [#/Vol] 2.02 10*3/uL Normal 1.20-4.00 [facility] Comment on above: Performed By: #### L [id number] #### [facility] ([facility]) [address] [place] [address] Lymphocytes/100 WBC (Bld) 23.5 % Normal 20.0-45.0 [facility] Comment on above: Performed By: #### L [id number] #### [facility] [address] [address] MCH (RBC) [Entitic mass] 27.2 pg Normal 27.0-33.0 [facility] Comment on above: Performed By: #### L [id number] #### [facility] ([facility]) [address] [place] [address] MCV (RBC) [Entitic vol] 82.7 fL Normal 82.0-98.0 [facility] Comment on above: Performed By: #### L [id number] #### [facility] ([facility]) [address] [place] [address] Monocytes (Bld) [#/Vol] 0.56 10*3/uL Normal 0.10-1.00 [facility] Comment on above: Performed By: #### L [id number] #### [facility] ([facility]) [address] [place] [address] Monocytes/100 WBC (Bld) 6.5 % Normal 5.0-12.0 [facility] Comment on above: Performed By: #### L [id number] #### [facility] ([facility]) [address] [place] [address] Neutrophils (Bld) [#/Vol] 5.74 10*3/uL Normal 1.60-7.60 [facility] Comment on above: Performed By: #### L [id number] #### [facility] ([facility]) [address] [place] [address] Neutrophils/100 WBC (Bld) 67.0 % Normal 40.0-72.0 [facility] Comment on above: Performed By: #### L [id number] #### [facility] ([facility]) [address] [place] [address] NRBC (PER 100 WBCS) BY AUTOMATED COUNT 0.0 % Normal 0 [facility] Comment on above: Performed By: #### L [id number] #### [facility] ([facility]) [address] [place] [address] PLATELETS (10*3/UL) IN BLOOD AUTOMATED COUNT 233 10*3/uL Normal 150-400 [facility] Comment on above: Performed By: #### L [id number] #### [facility] ([facility]) [address] [place] [address] RBC (Bld) [#/Vol] 4.34 10*6/uL Normal 3.80-5.00 [facility] Comment on above: Performed By: #### L [id number] #### [facility] ([facility]) [address] [place] [address] WBC (Bld) [#/Vol] 8.58 10*3/uL Normal 4.00-10.60 [facility] Comment on above: Performed By: #### L [id number] #### [facility] ([facility]) [address] [place] [address] COMPREHENSIVE METABOLIC PANE Alec 06-29-2024 Albumin [Mass/Vol] 3.8 g/dL Normal 3.5-5.7 [facility] Comment on above: Performed By: #### L [id number] #### [facility] ([facility]) [address] [place] [address] ALP [Catalytic activity/Vol] 64 U/L Normal 34-104 [facility] Comment on above: Performed By: #### L [id number] #### [facility] ([facility]) [address] [place] [address] ALT [Catalytic activity/Vol] 35 U/L Normal 7-52 [facility] Comment on above: Performed By: #### L [id number] #### [facility] ([facility]) [address] [place] [address] Anion gap [Moles/Vol] 12 mmol/L Normal 7-20 [facility] Comment on above: Performed By: #### L [id number] #### [facility] ([facility]) [address] [place] [address] AST [Catalytic activity/Vol] 21 U/L Normal 13-39 [facility] Comment on above: Performed By: #### L [id number] #### [facility] ([facility]) [address] [place] [address] Bilirubin [Mass/Vol] 0.4 mg/dL Normal 0.3-1.0 [facility] Comment on above: Performed By: #### L [id number] #### [facility] ([facility]) [address] [place] [address] Calcium [Mass/Vol] 8.5 mg/dL Low 8.6-10.3 [facility] Comment on above: Performed By: #### L [id number] #### [facility] ([facility]) [address] [place] [address] Chloride [Moles/Vol] 112 mmol/L High 98-107 [facility] Comment on above: Performed By: #### L [id number] #### [facility] ([facility]) [address] [place] [address] CO2 [Moles/Vol] 22 mmol/L Normal 21-31 [facility] Comment on above: Performed By: #### L [id number] #### [facility] ([facility]) [address] [place] [address] Creatinine [Mass/Vol] 0.92 mg/dL Normal 0.60-1.20 [facility] Comment on above: Performed By: #### L [id number] #### [facility] ([facility]) [address] [place] [address] GLOMERULAR FILTRATION RATE ML/MIN/1.73 SQ M.PREDICTED 71.3 mL/min/1.73m*2 Normal >60.[address] [facility] Comment on above: Result Comment: [facility]???s estimated glomerular filtration rate (eGFR) will [...] individuals. Performed By: #### L [id number] #### [facility] ([facility]) [address] [place] [address] Glucose [Mass/Vol] 108 mg/dL High 70-100 [facility] Comment on above: Performed By: #### L [id number] #### [facility] ([facility]) [address] [place] [address] Potassium [Moles/Vol] 3.7 mmol/L Normal 3.5-5.1 [facility] Comment on above: Performed By: #### L [id number] #### [facility] ([facility]) [address] [place] [address] Protein [Mass/Vol] 6.1 g/dL Normal 6.0-8.3 [facility] Comment on above: Performed By: #### L [id number] #### [facility] ([facility]) [address] [place] [address] Sodium [Moles/Vol] 142 mmol/L Normal 136-145 [facility] Comment on above: Performed By: #### L [id number] #### [facility] ([facility]) [address] [place] [address] Urea nitrogen [Mass/Vol] 11 mg/dL Normal 7-25 [facility] Comment on above: Performed By: #### L [id number] #### [facility] ([facility]) [address] [place] [address] UREA NITROGEN/CREATININE (MASS RATIO) IN SER/PLAS 12.0 Normal [facility] Comment on above: Performed By: #### L [id number] #### [facility] ([facility]) [address] [place] [address] MAGNESIUMon 06-29-2024 Magnesium [Mass/Vol] 1.7 mg/dL Low 1.9-2.7 [facility] Comment on above: Performed By: #### L [id number] #### [facility] ([facility]) [address] [place] [address] PHOSPHORUSon 06-29-2024 Magnesium [Mass/Vol] 2.9 mg/dL Normal 2.5-5.0 [facility] Comment on above: Performed By: #### L [id number] #### [facility] ([facility]) [address] [place] [address] PROTIME-INRon 06-29-2024 INR IN PPP BY COAGULATION ASSAY 0.99 Normal 0.90-1.10 [facility] Comment on above: Result Comment: ACCC [...] RANGE. CHEST 1995;108:231S-246S. Performed By: #### L [id number] #### [facility] [address] [place] [address] PROTHROMBIN TIME (PT) IN PPP BY COAGULATION ASSAY 13.1 Seconds Normal 12.3-14.8 [facility] Comment on above: Performed By: #### L [id number] #### [facility] [address] [place] [address] TROPONIN Ion 06-29-2024 Troponin I.cardiac [Mass/Vol] 0.10 ng/mL High 0.00-0.04 [facility] Comment on above: Performed By: #### L [id number] #### [facility] [address] [place] [address] Office Visiton 06-21-2024 Follow-up visit [id number] Aby Madrigal 1965 F Date Provider Department Center 06/21/2024 [facility] Family History Problem Relation Age of Onset Lung cancer Mother No Known Problems Father Lung cancer Sister Family Status - Relation Status Age at Mother Father Sister Level of Service:58464 ME OFFICE/OUTPATIENT ESTABLISHED MOD MDM 30 MIN Normal [facility] Office Visiton 05-26-2024 Follow-up visit [id number] Aby Madrigal 1965 F Date Provider Department Center 05/26/2024 [id number]-KDLHOMBIJAN MITCHELL RIAZ [place] Family History Problem Relation Age of Onset Lung cancer Mother No Known Problems Father Lung cancer Sister Family Status - Relation Status Age at Mother Father Sister Level of Service:75639 ME OFFICE/OUTPATIENT NEW MODERATE MDM 45 MINUTES Normal [facility] Outside Colonoscopyon 2022 Outside Colonoscopy [id number] 0CD:127 Normal [facility] Reminderson 11-27-2022 Reminders - From: Na Hayes LPN To: GSN - Clinical; Sent: 11/27/2022 12:46:10 EST Show up: 10/25/2032 07:00:00 EST Subject: colonoscopy recall Due Date/Time: 11/25/2032 07:00:00 EST Reminder/Recall Patient is due for screening colonoscopy 11/25/2032. Normal [facility] Lab Reportson 11-24-2022 Lab Reports [id number] 0CD:127 Normal [facility] Covid-19 PCR (CVDTBH)on 10-24 SARS-CoV-2 (COVID-19) RNA BECK+probe Ql (Unsp spec) Not detected Normal NOT DETECTED [facility] Comment on above: Result Comment: This test is not yet approved or cleared by the [place] FDA. When there are no FDA-approved or cleared tests available, and other criteria are met, FDA can make tests available under an emergency access mechanism called an Emergency Use Authorization (EUA). The EUA for this test is supported by the [place] of Health and Human Service's (HHS's) declaration [...] consistent with SARS-CoV-2. Performed By: #### C [facility] #### [facility] [address] [place] [address] Dr. Rich Cutler Consent for Procedure/Surger yon 10-07-2022 Consent for Procedure/Surgery [id number] 0CD:127 Normal [facility] Ambulatory Visit Summaryon 1 12-06-2021 Ambulatory Visit Summary ABY MADRIGAL :1965 Visit Date:10/06/2022 Ambulatory Visit Instructions Your Care Team Attending Physician - Umm MARTÍNEZ MD Primary Care Physician - Kendra Murillo MD [...] conjunctivitis Anticoagulated Kidney stones Normal [facility] VC VENOUS REFLUX NINO LMTon 1 12-02-2021 VC VENOUS REFLUX NINO LMT Patient: ABY MADRIGAL Exam Date: 10/02/2022 : 1965 Gender:F Ordering : DR KENDRA MURILLO . 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 Tech Note: Incompetent SFJ and GSV. Patent varicose vein mid/med calf 2.9mm with 0s reflux. Patent varicose vein prox/post calf 3.8mm with 0s reflux. Patent varicose vein dist/med thigh 3.8mm with 2.0s reflux. CONCLUSION: 1. Mild right and tpky-hl-bsyeyrhk left great saphenous vein venous insufficiency with dilatation 2. Left saphenous popliteal junction reflux 3. Mild left anterior accessory saphenous vein venous insufficiency without dilatation 4. Small bilateral incompetent varicose veins Dictated by: Adelia Lezama MD on 10/02/2022 at 13:36 Approved by: Adelia Lezama MD on 10/02/2022 at 13:52 Normal [facility] ECHOCARDIO M/2D COMPLETEon 1 11-30-2021 ECHOCARDIO M/2D COMPLETE Patient: ABY MADRIGAL Exam Date: 09/30/2022 : 1965 Gender:F Ordering : DR KENDRA MURILLO . Admission #: [id number] Family : Order #: [id number] CLICK HERE TO VIEW EXAM ECHOCARDIOGRAM REPORT [...] M.D. on 09/30/2022 at 18:37 Normal [facility] BNPon 09-24-2022 Natriuretic peptide B (Bld) [Mass/Vol] 501.0 pg/mL Normal <=900.0 [facility] Comment on above: Performed By: #### C VDTB #### [facility] [address] [place] [address] [address] Rich Cutler CBC AUTO DIFFon 09-24-2022 BASO # 0.1 103/ul Normal 0.0-0.1 [facility] Comment on above: Performed By: #### C VDTB #### [facility] [address] [place] [address] [address] Rich Cutler Basophils/100 WBC (Bld) 0.8 % Normal 0.2-2.0 [facility] Comment on above: Performed By: #### C VDTBH #### [facility] [address] [place] [address] Dr. Rich Cutler EO # 0.3 103/ul Normal 0.0-0.7 [facility] Comment on above: Performed By: #### C VDTBH #### [facility] [address] [place] [address] Dr. Rich Cutler Eosinophils/100 WBC (Bld) 3.4 % Normal 0.9-7.0 [facility] Comment on above: Performed By: #### C VDTBH #### [facility] [address] [place] [address] Dr. Rich Cutler Erythrocyte distribution width (RBC) [Ratio] 13.3 % Normal 11.0-15.0 [facility] Comment on above: Performed By: #### C VDTBH #### [facility] [address] [place] [address] Dr. Rich Cutler Hematocrit (Bld) [Volume fraction] 40.5 % Normal 36.0-48.0 [facility] Comment on above: Performed By: #### C VDTBH #### [facility] [address] [place] [address] Dr. Rich Cutler Hemoglobin (Bld) [Mass/Vol] 13.1 g/dL Normal 12.0-16.0 [facility] Comment on above: Performed By: #### C VDTBH #### [facility] [address] [place] [address] Dr. Rich Cutler IG # 0.02 10e3/ul Normal 0.00-0.03 [facility] Comment on above: Performed By: #### C VDTBH #### [facility] [address] [place] [address] Dr. Rich Cutler IG % 0.3 % Normal 0.0-0.5 [facility] Comment on above: Performed By: #### C VDTBH #### [facility] [address] [place] [address] Dr. Rich Cutler LYMPH # 2.7 103/ul Normal 1.2-3.8 [facility] Comment on above: Performed By: #### C VDTBH #### [facility] [address] [place] [address] Dr. Rich Cutler Lymphocytes/100 WBC (Bld) 35.4 % Normal 20.5-60.0 [facility] Comment on above: Performed By: #### C VDTBH #### [facility] [address] [place] [address] Dr. Rich Cutler MANUAL DIFF REQ NO Normal [facility] Comment on above: Performed By: #### C VDTBH #### [facility] [address] [place] [address] Dr. Rich Cutler MCH (RBC) [Entitic mass] 28.2 pg Normal 26.7-34.0 [facility] Comment on above: Performed By: #### C VDTBH #### [facility] [address] [place] [address] Dr. Rich Cutler MCHC (RBC) [Mass/Vol] 32.3 g/dL Normal 29.9-35.2 [facility] Comment on above: Performed By: #### C VDTBH #### [facility] [address] [place] [address] Dr. Rich Cutler MCV (RBC) [Entitic vol] 87.3 fL Normal 81.0-99.0 [facility] Comment on above: Performed By: #### C VDTBH #### [facility] [address] [place] [address] Dr. Rich Cutler MONO # 0.5 103/ul Normal 0.3-0.8 [facility] Comment on above: Performed By: #### C VDTBH #### [facility] [address] [place] [address] Dr. Rich Cutler Monocytes/100 WBC (Bld) 6.5 % Normal 1.7-12.0 [facility] Comment on above: Performed By: #### C VDTBH #### [facility] [address] [place] [address] Dr. Rich Cutler NEUT # 4.1 103/ul Normal 1.4-6.5 [facility] Comment on above: Performed By: #### C VDTBH #### [facility] [address] [place] [address] Dr. Rich Cutler Neutrophils/100 WBC (Bld) 53.6 % Normal 43.0-75.0 [facility] Comment on above: Performed By: #### C VDTBH #### [facility] [address] [place] [address] Dr. Rich Cutler Platelet mean volume (Bld) [Entitic vol] 10.3 fL Normal 9.5-13.5 [facility] Comment on above: Performed By: #### C VDTBH #### [facility] [address] [place] [address] Dr. Rich Cutler PLT 283 103/ul Normal 150-450 [facility] Comment on above: Performed By: #### C VDTBH #### [facility] [address] [place] [address] Dr. Rich Cutler RBC 4.64 106/ul Normal 4.20-5.40 [facility] Comment on above: Performed By: #### C VDTBH #### [facility] [address] [place] [address] Dr. Rich Cutler WBC 7.6 103/ul Normal 4.0-11.0 [facility] Comment on above: Performed By: #### C VDTBH #### [facility] [address] [place] [address] Dr. Rich Cutler INSULINon 09-24-2022 Insulin 15.1 uIU/mL Normal 2.6-24.9 [facility] Comment on above: Performed By: #### C VDTBH #### [facility] [address] [place] [address] Dr. Rich Cutler PROF 14(COMP METB)on 022 Albumin [Mass/Vol] 3.5 g/dL Normal 3.4-5.0 [facility] Comment on above: Performed By: #### C VDTBH #### [facility] [address] [place] [address] [address] Rich Cutler Albumin/Globulin [Mass ratio] 1.0 {ratio} Normal [facility] [facility] Comment on above: Performed By: #### C VDTBH #### [facility] [address] [address] [address] Rich Cutler ALP [Catalytic activity/Vol] 91 U/L Normal 46-116 [facility] Comment on above: Performed By: #### C VDTBH #### [facility] [address] [place] [address] Dr. Rich Cutler ALT [Catalytic activity/Vol] 47 U/L Normal 14-59 [facility] Comment on above: Performed By: #### C VDTBH #### [facility] [address] [place] [address] Dr. Rich Cutler Anion gap [Moles/Vol] 11.7 mmol/L Normal [facility] Comment on above: Performed By: #### C VDTBH #### [facility] [address] [place] [address] Dr. Rich Cutler AST [Catalytic activity/Vol] 24 U/L Normal 15-37 [facility] Comment on above: Performed By: #### C VDTBH #### [facility] [address] [place] [address] Dr. Rich Cutler Bilirubin [Mass/Vol] 0.2 mg/dL Normal 0.2-1.0 [facility] Comment on above: Performed By: #### C VDTBH #### [facility] [address] [place] [address] Dr. Rich Cutler Calcium [Mass/Vol] 8.9 mg/dL Normal 8.5-10.1 [facility] Comment on above: Performed By: #### C VDTBH #### [facility] [address] [place] [address] Dr. Rich Cutler Chloride [Moles/Vol] 105 mmol/L Normal 98-107 [facility] Comment on above: Performed By: #### C VDTBH #### [facility] [address] [address] [address] Rich Cutler CO2 [Moles/Vol] 28.1 mmol/L Normal 21.0-32.0 [facility] Comment on above: Performed By: #### C VDTBH #### [facility] [address] [address] [address] Rich Cutler Creatinine [Mass/Vol] 1.13 mg/dL Critically high 0.55-1.02 [facility] Comment on above: Performed By: #### C VDTBH #### [facility] [address] [address] [address] Rich Cutler EGFR-AF IRANIAN 60 mL/min/1.73m2 Normal >=60 [facility] Comment on above: Performed By: #### C VDTBH #### [facility] [address] [place] [address] Dr. Rich Cutler EGFR-NON AF IRANIAN 49 mL/min/1.73m2 Critically low >=60 [facility] Comment on above: Performed By: #### C VDTBH #### [facility] [address] [place] [address] Dr. Rich Cutler Globulin (S) [Mass/Vol] 3.5 g/dL Normal [facility] Comment on above: Performed By: #### C VDTBH #### [facility] [address] [place] [address] Dr. Rich Cutler Glucose [Mass/Vol] 119 mg/dL Critically high 74-106 [facility] Comment on above: Performed By: #### C VDTBH #### [facility] [address] [place] [address] Dr. Rich Cutler Potassium [Moles/Vol] 3.8 mmol/L Normal 3.5-5.1 [facility] Comment on above: Performed By: #### C VDTBH #### [facility] [address] [place] [address] Dr. Rich Cutlre Protein [Mass/Vol] 7.0 g/dL Normal 6.4-8.2 [facility] Comment on above: Performed By: #### C VDTBH #### [facility] [address] [address] [address] Rich Cutler Sodium [Moles/Vol] 141 mmol/L Normal 136-145 [facility] Comment on above: Performed By: #### C VDTBH #### [facility] [address] [address] [address] Rich Cutler Urea nitrogen [Mass/Vol] 16.0 mg/dL Normal 7.0-18.0 [facility] Comment on above: Performed By: #### C VDTBH #### [facility] [address] [address] [address] Rich Cutler Urea nitrogen/Creatinine [Mass ratio] 14.2 mg/mg Normal [facility] Comment on above: Performed By: #### C VDTBH #### [facility] [address] [place] [address] Dr. Rich Cutler TROPONIN, HIGH SENSITIVITYon 09-24-2022 HSTROP 10.6 pg/mL Normal 4.0-51.3 [facility] Comment on above: Result Comment: CUT- OFF POINTS HAVE BEEN ESTABLISHED BASED ON THE FOURTH UNIVERSAL DEFINITIONS OF MYOCARDIAL INFARCTION. THE UPPER REFERENCE LIMIT (URL) OF TROPONIN, DEFINED THE 99TH PERCENTILE OF cTnI DISTRIBUTION IN A REFERENCE POPULATION, HAS BEEN CONFIRMED THE DECISION THRESHOLD FOR [place] DIAGNOSIS. Performed By: #### C VDTBH #### [facility] [address] [place] [address] Dr. Rich Cutler XR CHEST 1 Von [...] by: UMM HUMPHRIES Date: 2022-09-24 04:08 Normal [facility] CBC AUTO DIFFon 09-23-2022 BASO # 0.1 103/ul Normal 0.0-0.1 [facility] Comment on above: Performed By: #### C BC #### [facility] [address] [place] [address] Dr. Rich Cutler Basophils/100 WBC (Bld) 0.8 % Normal 0.2-2.0 [facility] Comment on above: Performed By: #### C BC #### [facility] [address] [place] [address] Dr. Rich Cutler EO # 0.2 103/ul Normal 0.0-0.7 [facility] Comment on above: Performed By: #### C BC #### [facility] [address] [place] [address] Dr. Rich Cutler Eosinophils/100 WBC (Bld) 3.5 % Normal 0.9-7.0 [facility] Comment on above: Performed By: #### C BC #### [facility] [address] [place] [address] Dr. Rich Cutler Erythrocyte distribution width (RBC) [Ratio] 13.4 % Normal 11.0-15.0 [facility] Comment on above: Performed By: #### C BC #### [facility] [address] [place] [address] Dr. Rich Cutler Hematocrit (Bld) [Volume fraction] 42.3 % Normal 36.0-48.0 [facility] Comment on above: Performed By: #### C BC #### [facility] [address] [place] [address] Dr. Rich Cutler Hemoglobin (Bld) [Mass/Vol] 13.4 g/dL Normal 12.0-16.0 [facility] Comment on above: Performed By: #### C BC #### [facility] [address] [place] [address] Dr. Rich Cutler IG # 0.03 10e3/ul Normal 0.00-0.03 [facility] Comment on above: Performed By: #### C BC #### [facility] [address] [place] [address] Dr. Rich Cutler IG % 0.5 % Normal 0.0-0.5 [facility] Comment on above: Performed By: #### C BC #### [facility] [address] [place] [address] Dr. Rich Cutler LYMPH # 2.9 103/ul Normal 1.2-3.8 [facility] Comment on above: Performed By: #### C BC #### [facility] [address] [place] [address] Dr. Rich Cutler Lymphocytes/100 WBC (Bld) 44.0 % Normal 20.5-60.0 [facility] Comment on above: Performed By: #### C BC #### [facility] [address] [place] [address] Dr. Rich Cutler MANUAL DIFF REQ NO Normal [facility] Comment on above: Performed By: #### C BC #### [facility] [address] [place] [address] Dr. Rich Cutler MCH (RBC) [Entitic mass] 28.4 pg Normal 26.7-34.0 [facility] Comment on above: Performed By: #### C BC #### [facility] [address] [place] [address] Dr. Rich Cutler MCHC (RBC) [Mass/Vol] 31.7 g/dL Normal 29.9-35.2 [facility] Comment on above: Performed By: #### C BC #### [facility] [address] [place] [address] Dr. Rich Cutler MCV (RBC) [Entitic vol] 89.6 fL Normal 81.0-99.0 [facility] Comment on above: Performed By: #### C BC #### [facility] [address] [place] [address] Dr. Rich Cutler MONO # 0.4 103/ul Normal 0.3-0.8 [facility] Comment on above: Performed By: #### C BC #### [facility] [address] [place] [address] Dr. Rich Cutler Monocytes/100 WBC (Bld) 6.6 % Normal 1.7-12.0 [facility] Comment on above: Performed By: #### C BC #### [facility] [address] [place] [address] Dr. Rich Cutler NEUT # 2.9 103/ul Normal 1.4-6.5 [facility] Comment on above: Performed By: #### C BC #### [facility] [address] [place] [address] Dr. Rich Cutler Neutrophils/100 WBC (Bld) 44.6 % Normal 43.0-75.0 [facility] Comment on above: Performed By: #### C BC #### [facility] [address] [place] [address] Dr. Rich Cutler Platelet mean volume (Bld) [Entitic vol] 11.0 fL Normal 9.5-13.5 [facility] Comment on above: Performed By: #### C BC #### [facility] [address] [place] [address] Dr. Rich Cutler PLT 272 103/ul Normal 150-450 [facility] Comment on above: Performed By: #### C BC #### [facility] [address] [place] [address] Dr. Rich Cutler RBC 4.72 106/ul Normal 4.20-5.40 [facility] Comment on above: Performed By: #### C BC #### [facility] [address] [place] [address] Dr. Rich Cutler WBC 6.5 103/ul Normal 4.0-11.0 [facility] Comment on above: Performed By: #### C BC #### [facility] [address] [place] [address] Dr. Rich Cutler FREE THYROXINE INDEX T7on FTI 2.16 Normal 1.30-4.50 [facility] Comment on above: Performed By: #### L IPID, TSH, T7, CMP #### [facility] [address] [place] [address] Dr. Rich Cutler T3U 30.0 % Normal 30.0-39.0 [facility] Comment on above: Performed By: #### L IPID, TSH, T7, CMP #### [facility] [address] [address] [address] Rich Cutler T4 [Mass/Vol] 7.20 ug/dL Normal 4.80-13.90 [facility] Comment on above: Performed By: #### L IPID, TSH, T7, CMP #### [facility] [address] [address] [address] Rich Cutler GLYCOHEMOGLOBIN A1Con 2021 ADA RECOMMENDATION SEE BELOW Normal [facility] Comment on above: Result Comment: ADA RECOMMENDED LIMIT 4.0 - 6.0 ADA THERAPEUTIC TARGET < 7.0 ACTION SUGGESTED > 7.0 Performed By: #### A 1C #### [facility] [address] [place] [address] Dr. Rich Cutler Glucose [Mass/Vol] 128 mg/dL Normal [facility] Comment on above: Performed By: #### A 1C #### [facility] [address] [place] [address] Dr. Rich Cutler HbA1c (Bld) [Mass fraction] 6.1 % Normal 4.5-6.2 [facility] Comment on above: Performed By: #### A 1C #### [facility] [address] [place] [address] Dr. Rich Cutler IRONon 09-23-2022 Iron [Mass/Vol] 64.0 ug/dL Normal 50.0-170.[address] [facility] Comment on above: Performed By: #### C VDTBH #### [facility] [address] [place] [address] Dr. Rich Cutler LIPID PROFILEon 09-23-2022 CHOL-HDL RATIO NORM SEE BELOW Normal [facility] Comment on above: Result Comment: 3.3 - 4.4 LOW RISK 4.4 - 7.1 AVERAGE RISK 7.1 - 11.0 MODERATE RISK >11.0 HIGH RISK Performed By: #### L IPID, TSH, T7, CMP #### [facility] [address] [place] [address] Dr. Rich Cutler Cholesterol [Mass/Vol] 237 mg/dL Critically high <=200 [facility] Comment on above: Performed By: #### L IPID, TSH, T7, CMP #### [facility] [address] [address] [address] Rich Cutler Cholesterol in HDL [Mass/Vol] 44 mg/dL Normal 40-60 [facility] Comment on above: Performed By: #### L IPID, TSH, T7, CMP #### [facility] [address] [address] [address] Rich Cutler Cholesterol in LDL [Mass/Vol] 172.2 mg/dL Normal [facility] Comment on above: Performed By: #### L IPID, TSH, T7, CMP #### [facility] [address] [place] [address] Dr. Rich Cutler Cholesterol.total/C holesterol in HDL [Mass ratio] 5.4 {ratio} Normal [facility] Comment on above: Performed By: #### L IPID, TSH, T7, CMP #### [facility] [address] [place] [address] Dr. Rich Cutler HDL NORMAL > or = 60 mg/dl - LO W CARDIOVASCULAR RISK <40 mg/dl - HIGH CARDIOVASCULAR RISK Normal [facility] Comment on above: Performed By: #### L IPID, TSH, T7, CMP #### [facility] [address] [place] [address] Dr. Rich Cutler LDL CALC NORMAL SEE BELOW Normal [facility] Comment on above: Result Comment: <100 mg/dl OPTIMAL 100 - 129 mg/dl NEAR OR ABOVE OPTIMAL 130 - 159 mg/dl BORDERLINE HIGH 160 - 189 mg/dl HIGH >190 mg/dl VERY HIGH Performed By: #### L IPID, TSH, T7, CMP #### [facility] [address] [place] [address] Dr. Rich Cutler Triglyceride [Mass/Vol] 104 mg/dL Normal <=150 [facility] Comment on above: Performed By: #### L IPID, TSH, T7, CMP #### [facility] [address] [place] [address] Dr. Rich Cutler VLDL CALC 20.8 mg/dL Normal [facility] Comment on above: Performed By: #### L IPID, TSH, T7, CMP #### [facility] [address] [place] [address] Dr. Rich Cutler PROF 14(COMP METB)on 022 Albumin [Mass/Vol] 3.5 g/dL Normal 3.4-5.0 [facility] Comment on above: Performed By: #### L IPID, TSH, T7, CMP #### [facility] [address] [place] [address] Dr. Rich Cutler Albumin/Globulin [Mass ratio] 0.9 {ratio} Normal [facility] Comment on above: Performed By: #### L IPID, TSH, T7, CMP #### [facility] [address] [place] [address] Dr. Rich Cutler ALP [Catalytic activity/Vol] 93 U/L Normal 46-116 [facility] Comment on above: Performed By: #### L IPID, TSH, T7, CMP #### [facility] [address] [place] [address] Dr. Rich Cutler ALT [Catalytic activity/Vol] 44 U/L Normal 14-59 [facility] Comment on above: Performed By: #### L IPID, TSH, T7, CMP #### [facility] [address] [place] [address] Dr. Rich Cutler Anion gap [Moles/Vol] 8.5 mmol/L Normal [facility] Comment on above: Performed By: #### L IPID, TSH, T7, CMP #### [facility] [address] [place] [address] Dr. Rich Cutler AST [Catalytic activity/Vol] 26 U/L Normal 15-37 [facility] Comment on above: Performed By: #### L IPID, TSH, T7, CMP #### [facility] [address] [place] [address] Dr. Rich Cutler Bilirubin [Mass/Vol] 0.3 mg/dL Normal 0.2-1.0 [facility] Comment on above: Performed By: #### L IPID, TSH, T7, CMP #### [facility] [address] [address] [address] Rich Cutler Calcium [Mass/Vol] 9.0 mg/dL Normal 8.5-10.1 [facility] Comment on above: Performed By: #### L IPID, TSH, T7, CMP #### [facility] [address] [address] [address] Rich Cutler Chloride [Moles/Vol] 106 mmol/L Normal 98-107 [facility] Comment on above: Performed By: #### L IPID, TSH, T7, CMP #### [facility] [address] [place] [address] Dr. Rich Cutler CO2 [Moles/Vol] 31.0 mmol/L Normal 21.0-32.0 [facility] Comment on above: Performed By: #### L IPID, TSH, T7, CMP #### [facility] [address] [place] [address] Dr. Rich Cutler Creatinine [Mass/Vol] 1.11 mg/dL Critically high 0.55-1.02 [facility] Comment on above: Performed By: #### L IPID, TSH, T7, CMP #### [facility] [address] [place] [address] Dr. Rich Cutler EGFR-AF IRANIAN >60 Normal >=60 [facility] Comment on above: Performed By: #### L IPID, TSH, T7, CMP #### [facility] [address] [address] [address] Rich Cutler EGFR-NON AF IRANIAN 50 mL/min/1.73m2 Critically low >=60 [facility] Comment on above: Performed By: #### L IPID, TSH, T7, CMP #### [facility] [address] [place] [address] Dr. Rich Cutler Globulin (S) [Mass/Vol] 3.7 g/dL Normal [facility] Comment on above: Performed By: #### L IPID, TSH, T7, CMP #### [facility] [address] [address] [address] Rich Cutler Glucose [Mass/Vol] 121 mg/dL Critically high 74-106 [facility] Comment on above: Performed By: #### L IPID, TSH, T7, CMP #### [facility] [address] [place] [address] Dr. Rich Cutler Potassium [Moles/Vol] 4.5 mmol/L Normal 3.5-5.1 [facility] Comment on above: Performed By: #### L IPID, TSH, T7, CMP #### [facility] [address] [place] [address] Dr. Rich Cutler Protein [Mass/Vol] 7.2 g/dL Normal 6.4-8.2 [facility] Comment on above: Performed By: #### L IPID, TSH, T7, CMP #### [facility] [address] [place] [address] Dr. Rich Cutler Sodium [Moles/Vol] 141 mmol/L Normal 136-145 [facility] Comment on above: Performed By: #### L IPID, TSH, T7, CMP #### [facility] [address] [place] [address] Dr. Rich Cutler Urea nitrogen [Mass/Vol] 16.0 mg/dL Normal 7.0-18.0 [facility] Comment on above: Performed By: #### L IPID, TSH, T7, CMP #### [facility] [address] [place] [address] Dr. Rich Cutler Urea nitrogen/Creatinine [Mass ratio] 14.4 mg/mg Normal [facility] Comment on above: Performed By: #### L IPID, TSH, T7, CMP #### [facility] [address] [place] [address] Dr. Rich Cutler TSHon 09-23-2022 TSH 3.915 uIU/mL Critically high 0.358-3.740 [facility] Comment on above: Performed By: #### L IPID, TSH, T7, CMP #### [facility] [address] [place] [address] Dr. Rich Cutler Physician Referralon 022 Physician Referral [id number] Normal [facility] Lipid Panelon 10-07-2021 Cholesterol [Mass/Vol] 205 mg/dL High 140-200 [facility] Comment on above: Result Comment: Chol less than 200 mg/dl low risk Chol 201-239 mg/dl borderline risk Chol 240 mg/dl and greater high risk Performed By: #### L IPID, [id number], TSH3 wRFLX #### [facility] [address] [id number] [facility] Cholesterol in HDL [Mass/Vol] 25 mg/dL Low 35-85 [facility] Comment on above: Result Comment: HDL CHOL ATP-III CLASSIFICATION Cardiovascular Risk HDL > or equal to 60 mg/dL LOW HDL < 40 mg/dL HIGH Performed By: #### L IPID, [id number], TSH3 wRFLX #### [facility] [address] [id number] [place] Cholesterol.total/C holesterol in HDL [Mass ratio] 8.2 {ratio} Normal <5.0 [facility] Comment on above: Performed By: #### L IPID, [id number], TSH3 wRFLX #### [facility] [address] [id number] [place] LDL Cholesterol,Calcula coby 160 mg/dL High 0-100 [facility] Comment on above: Result Comment: LDL ATP III CLASSIFICATION LDL less than 100 mg/dL Optimal LDL 100-129 mg/dL Near or above optimal LDL 130-159 mg/dL Borderline high LDL 160-189 mg/dL High LDL greater than 189 mg/dL Very high Performed By: #### L IPID, [id number], TSH3 wRFLX #### [facility] [address] [id number] [place] Triglyceride w/Reflex 100 mg/dL Normal 35-149 [facility] Comment on above: Result Comment: TRIG ATP III CLASSIFICATION TRIG less than 150 mg/dL Normal TRIG 150-199 mg/dL Borderline high TRIG 200-500 mg/dL High TRIG greater than 500 mg/dL Very high Standard traceable to the Center for Disease Conrtrol and Prevention (CDC) test method. Performed By: #### L IPID, [id number], TSH3 wRFLX #### [address] VLDL CHOLESTEROL 20 mg/dL Normal [facility] Comment on above: Performed By: #### L IPID, [id number], TSH3 wRFLX #### [facility] [address] [place] [address] Thyroid Stim Hormone w/Rflxo n 10-07-2021 Thyroid Stim Hormone w/Rflx 3.27 u[iU]/mL Normal 0.45-5.33 [facility] Comment on above: Performed By: #### L IPID, [id number], TSH3 wRFLX #### [address] Vitamin D 25 Hydroxy Totalon 10-07-2021 Vitamin D 25 Hydroxy Total 26.5 ng/mL Low 30-100 [facility] Comment on above: Result Comment: JACKELINE MIN D STATUS 25(OH)VITAMIN D RANGE (ng/mL) Deficient <20 Insufficient 20 to <30 Sufficient 30 to 100 Reference: Lanny MF,Gino NC, Dyan VALENZUELA, et al. Evaluation,treatment, and prevention of vitamin D deficiency; an Endocrine Society clinical practice guideline. JCEM. 2010; 96(7):1911-30. PERFORMED BY: [place] [address] PATHOLOGIST SENIOR RADIATION THERAPIST SILVESTRE SCHULER M.D. Performed By: #### L IPID, [id number], TSH3 wRFLX #### [address] Vital Signs Date Time Vital Sign Value Performing Clinician Deidre gagnon 10-06-2022 15:36-0500 Blood Pressure Location Umm MARTÍNEZ [facility] [place] 10-06-2022 15:36-0500 Diastolic blood pressure 86 mm[Hg] Umm MARTÍNEZ [facility] [place] 10-06-2022 15:36-0500 Heart rate 72 /min Umm JACQUESVannesa [facility] [place] 10-06-2022 15:36-0500 Respiratory rate 16 /min Umm JACQUESVannesa [facility] [place] 10-06-2022 15:36-0500 Systolic blood pressure 126 mm[Hg] Umm JACQUESVannesa [facility] [place] Encounters Encounter Date Encounter Type Care Provider Facility Start: 07-20-2024 ambulatory JEFFREYSAMIR JUAREZSANDRA [facility] Start: 07-18-2024 ambulatory [facility] Start: 07-18-2024 End: 07-18-2024 Emergency department patient visit HERMINIA LI [facility] Start: 07-18-2024 End: 07-18-2024 ambulatory [facility] Start: 07-11-2024 Evaluation and manag ement of inpatient [facility] Start: 07-11-2024 Evaluation and manag ement of inpatient [facility] Start: 07-11-2024 Emergency department patient visit FEDERICA ANDERSON [facility] Start: 07-11-2024 End: 07-12-2024 Evaluation and management of inpatient JOSE BETANCUR [facility] Start: 07-10-2024 End: 07-10-2024 ambulatory [facility] Start: 06-30-2024 Evaluation and manag ement of inpatient [facility] Start: 06-30-2024 Evaluation and manag ement of inpatient [facility] Start: 06-29-2024 End: 07-01-2024 Evaluation and management [facility] Start: 06-21-2024 End: 06-21-2024 ambulatory GOMEZ JAY [facility] Start: 05-26-2024 End: 05-26-2024 ambulatory [facility] Start: 11-26-2022 Encounter for preprocedural laboratory examination DR UMM MARTÍNEZ . [facility] Start: 11-25-2022 End: 11-26-2022 ambulatory Umm MARTÍNEZ Facility:CD:[id number] Start: 11-20-2022 End: 11-21-[address] UMM MARTÍNEZ . Facility:[facility] Start: 11-20-2022 End: 11-21-2022 Encounter for preprocedural laboratory examination DR UMM MARTÍNEZ . Facility: Start: 10-06-2022 End: 10-07-2022 ambulatory Umm MARTÍNEZ Facility:[facility] Start: 10-06-2022 End: 10-06-2022 Patient encounter procedure Umm [facility]NEZ [facility] Start: 10-02-2022 End: 10-03-[address] KENDRA MURILLO . Facility:[facility] Start: 09-30-2022 End: 10-01-[address] KENDRA MURILLO . Facility:[facility] Start: 09-28-2022 Encounter for genera l adult medical examination without abnormal findings DR KENDRA MURILLO . [facility] Start: 09-24-2022 End: 09-24-[address] [...] stent Umm MARTÍNEZ Bilateral tubal ligation Ad hael DIPESH Catheterization of l eft heart Umm MARTÍNEZ Cholecystectomy Umm MARTÍNEZ Cystoscopic insertio n of ureteric stent Umm MARTÍNEZ Dilation and curetta ge of uterus Umm NILL Vaginal hysterectomy Umm JACQUESL Immunizations Immunization Date Immunization Notes Care Provider Fa cility 04-14-2021 SARS-CoV-2 (COVID-19 ) mRNA BNT-162b2 vax Umm NILL [facility] 03-11-2021 SARS-CoV-2 (COVID-19 ) mRNA BNT-162b2 vax Umm NILL [facility] [place] Payers Date Payer Category Payer Medicaid [id number] 1965 Unknown [id number] 2.16.8 [id number] 1965 Unknown [id number] 2.16.8 [id number] 1965 Unknown [id number] 2.16.84 [id number] 1965 Unknown [id number] 2.16.84 [id number] 1965 Unknown [id number] 2.16.84 [id number] 1965 Unknown [id number] 2.16.84 [id number] 1965 Unknown [id number] 2.16.84 [id number] 1965 Unknown [id number] 2.16.84 [id number] 1965 Unknown [id number] 2.16.84 [id number] 1960 Self-pay [id number] 1960 Unknown [id number] Social History Date Type Detail Facility Start: 10-06-2022 Tobacco smoking status Ex-smoker (fi nding) [facility] [place] Tobacco smoking status Never [facility] [place] Sex Assigned At Female [facility] Functional Status Date Assessment Result Facility 10-06-2022 Functional Status N/A [facility] Clinical Notes 10-11-2022 to 07-20-2024 Note Date & Type Note Facility 07-20-2024 Note Attestation signed by Richa Viramontes MD at 07/21/2024 11:47 AM Total time spent on day of encounter: 30 minutes Attending attestation: GC: I personally spoke with this patient via telephone on the day of the encounter, performed the zuniga portion(s) of the service and participated in the management and confirm the fellow's documentation. Physical examination was not performed and may limit some portions of the clinical encounter. Please note there may be an additional personal documentation from me. Pulmonary Telemedicine Visit Note Patient: Aby Madrigal Age: 59 y.o. : 1965 Account No.: [id number] Referring physician: Dr. Jarocho Saldaña Chief complaint: RML nodule HPI Aby Madrigal is a 59 y.o. female with hypertension, CAD status post PCI recently in June 2024,, cigarette smoking who is presenting to clinic via telemedicine as a new patient after being referred by Dr. Jarocho Saldaña. Patient reports recent admission to [place] [facility] ICU for hypertensive emergency. This prompted a CT of the chest which was positive for right middle lobe nodule. She then underwent PCI here at [facility] in June. She is currently on aspirin and Plavix. The patient reports seeing Dr. Marlon Beal for pulmonology in the past however is unable to elaborate on details of why she was seeing him. She denies any prior history of COPD, asthma, chronic bronchitis, emphysema. The patient is an ex-smoker who quit 2 years ago. She smoked for 40 years, 1.5 packs/day. 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 She has strong family history of lung cancer with both her sister and mother suffering from lung cancer. She denies any personal history of cancer. She has no PFTs on file. CTA chest 04/21/2024 at [facility]: Right middle lobe approximately 1 cm spiculated nodule appreciated Subsequent PET CT 2024 at [facility]: Right middle lobe nodule is faintly PET avid Past Medical History: Diagnosis Date Abnormal ECG Diabetes mellitus (CMS/HCC) Hyperlipidemia Hypertension Obstructive sleep apnea Panic attacks Stroke (CMS/HCC) Past Surgical History: Procedure Laterality Date CEREBRAL ANGIOGRAM CHOLECYSTECTOMY HYSTERECTOMY TUBAL LIGATION Allergies: Lisinopril, Norvasc [amlodipine], and Xanax [alprazolam] Prior to Admission medications Medication Sig Start Date End Date Taking? Authorizing Provider aspirin 81 mg EC tablet Take 81 mg by mouth in the morning. Yes Historical Provider, carvedilol (Coreg) 25 mg tablet Take 1 tablet (25 mg) by mouth with breakfast and with evening meal. 07/17/24 07/17/25 Yes Bijan Mitchell MD clopidogrel (Plavix) 75 mg tablet Take 1 tablet (75 mg) by mouth in the morning. 07/01/24 07/01/25 Yes Nona Alfaro MD dexAMETHasone (Decadron) 1 mg tablet Take 1 tablet when directed 07/18/24 07/28/24 Yes Feng Christie MD isosorbide mononitrate ER (Imdur) 60 mg 24 hr tablet Take 1 tablet (60 mg) by mouth in the morning for 98 doses. Do not crush or chew. 07/12/24 10/18/24 Yes Tao Harrison MD LORazepam (Ativan) 0.5 mg tablet 1 to 2 tablets Orally QID PRN for 30 days 10/04/17 Yes Historical Provider, losartan (Cozaar) 100 mg tablet Take 1 tablet (100 mg) by mouth in the morning. 07/14/24 07/14/25 Yes Bijan Mitchell MD metFORMIN (Glucophage) 500 mg tablet Take 500 mg by mouth with breakfast and with evening meal. Yes Historical Provider, Protonix 40 mg EC tablet Take 40 mg by mouth if needed each day. 09/20/23 Yes Historical Provider, QUEtiapine (SEROquel) 25 mg tablet Take 50 mg by mouth at bedtime. Yes Historical Provider, rosuvastatin (Crestor) 40 mg tablet Take 1 tablet (40 mg) by mouth in the morning. 07/01/24 07/31/24 Yes Nona Alfaro MD sennosides-docusate sodium (Mikala-Colace) 8.6-50 mg tablet Take 1 tablet by mouth if needed each day for constipation. 07/12/24 08/11/24 Yes Tao Harrison MD spironolactone (Aldactone) 25 mg tablet Take 1 tablet (25 mg) by mouth in the morning for 98 doses. Do not start before July 13, 2024. 07/13/24 10/19/24 Yes Tao Harrison MD carvedilol (Coreg) 25 mg tablet Take 1 tablet (25 mg) by mouth with breakfast and with evening meal. 07/01/24 07/17/24 Nona Alfaro MD cloNIDine (Catapres) 0.1 mg tablet Take 1 tablet (0.1 mg) by mouth two times daily. 07/01/24 07/18/24 Nona Alfaro MD Lasix 20 mg tablet Take 20 mg by mouth in the morning. 07/18/24 Historical Provider, losartan (Cozaar) 100 mg tablet Take 1 tablet (100 mg) by mouth in the morning. 07/10/24 07/14/24 Bijan Mitchell MD Social history: reports that she quit smoking about 2 years ago. Her smoking use included cigarettes. She has a 45.00 pack-year smoking history. She has never used smokeless tobacco. She reports that she does not currently use alcohol. She reports (more content not included)... [facility] 07-18-2024 Note REASON FOR VISIT + H [...] metoprolol - CT A/P Jun 2019 in [place], [place] performed for abd pain, incidentally detected [...] Rfl: carvedilol (C (more content not included)... 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 Resides at home alone. Discharge plan is home. [facility] 07-18-2024 Note Patient sent to ED f or hypotension and dizziness/lightheadedness [facility] 07-12-2024 Note Hospital Medicine Discharge Summary Final Discharge Diagnosis: NSTEMI Admission Diagnosis: Hypokalemia [E87.6] NSTEMI (non-ST elevated myocardial infarction) (CMS/HCC) [I21.4] Hypertensive urgency [I16.0] Adenoma of left adrenal gland [D35.02] Resistant hypertension [I1A.0] Atherosclerosis of [place] coronary artery of [place] heart without angina pectoris [I25.10] Coronary artery disease involving [place] coronary artery of [place] heart with unstable angina pectoris (CMS/HCC) [I25.110] Type 2 diabetes mellitus without complication, without long-term current use of insulin ([facility]/HCC) [E11.9] Hospital course: 59yoF with CAD s/p LAD SARKIS 11 days ago who was admitted to [facility] on 07/11 for chest pain. patient initially presented to [facility] for uncomfortable feeling in her chest and was found to have elevated troponins and new ischemic changes on EKG. Infusion and cardiology was consulted transferred to [facility] for further evaluation. Initially the patient had blood pressures up to 192/65 for which home medications were restarted. Troponins at [facility] were negative and there were no [...] Center 07/18/2024 8:20 AM Feng Christie MD [facility] [[email or web address]] ENDOCR [facility] [[email or web address]] 07/20/2024 1:00 PM Richa Viramontes MD [facility] 09/05/2024 1:00 PM Bijan Mitchell [facility] Your medication list START taking these [...] Your Medications These medications were sent to [facility]/pharmacy #[id number] [place], [place] [address] [place] [address] [address] [facility] [id number] isosorbide mononitrate ER 60 mg 24 hr [...] activity In process (more content not included)... [facility] 07-11-2024 Note 07/11/24 1817 Financial Resource [...] place to sleep or slept in a retirement (including now)? N Transportation Needs In the [...] than 3 How often do you attend confucianism or yarsani services? Never Do you belong to any clubs or organizations such as confucianism groups, unions, fraternal or athletic groups, or [...] In the past 12 months has the electric, gas, oil, or water company threatened to shut off services in your home? 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 Referral Reason Psychosocial assessment Patient Information Primary Caregiver Self Accompanied by/Relationship Daughter (Rosita); Vvpfnkis-uu-zic (Yesy) Activities of Daily Living Assistive Device Not applicable Living Arrangement (Current/Prior to Hospitalization) Private residence (Lives at home by herself) Ambulation Independent Dressing Independent Feeding Independent Behavior Oriented (A&Ox4) Communication Can write;Talks;Understands speaking;Understands Hong Konger;Reads Income Information Income Source Unemployed (receives survivor benefits) Discharge Planning Support Systems Children;Family members (daughter, yjlxvvkp-yu-srw, son) Type of Residence Private residence Will patient need Precert for Post Acute needs? No Patient's goal for discharge Home Does the patient need discharge transport arranged? No Completed social work assessment and SDoH screening. Patient was A&Ox4 at this time. Patient's daughter, Rosita, and patient's rvzikjsk-vn-tag, Yesy, were currently present at bedside. Patient reported that she lives at home by herself and she identified her support system as her daughter, Rosita, her illkibem-yd-lxr, Yesy, and her son, Elie. Patient endorsed [...] any alcohol consumption or recreational drug use. [facility] 07-11-2024 Note Hospital Medicine History and Physical 07/11/2024 12:19 PM THE HOSPITALIST TEAM PREFERS TO USE [employer] FOR COMMUNICATION 7AM-7PM. IF I DO NOT RESPOND WITHIN 15 MINUTES, PLEASE PAGE ME/CALL THROUGH THE PYRIDINE OPERATOR. FROM 7PM-7AM, PLEASE PAGE [phone](COVR) Chief Complaint Chief Complaint Patient presents with [...] s/p stent placement 11 days ago at [facility] presented to ER as a transfer from [facility] for NSTEMI. Patient states that last [...] Noted Hypokalemia 07/11/2024 Coronary artery disease involving [place] coronary artery of [place] heart with unstable angina pectoris ([facility]) 07/11/2024 Anxiety 06/30/2024 Type 2 diabetes mellitus without complication, without long-term current use of insulin ([facility]) 06/30/2024 Chest pain 06/30/2024 Elevated troponin 06/30/2024 Hypertensive urgency 06/30/2024 Hypomagnesemia 06/30/2024 QURESHI (dyspnea on exertion) 05/26/2024 Atherosclerosis of [place] coronary artery of [place] heart without angina pectoris 05/26/2024 Hyperlipidemia 05/26/2024 Murmur, heart 05/26/2024 Sepsis ([facility]) 07/14/2019 BV (bacterial vaginosis) 10/18/2017 GERD (gastroesophageal reflux disease) 10/18/2017 Essential hypertension 10/18/2017 TIA (transient ischemic attack) 10/18/2017 NSTEMI (non-ST elevated myocardial infarction) ([facility]) 06/29/2024 Assessment and Plan NSTEMI [...] for GI prophylaxis (more content not included)... [facility] 07-10-2024 Note [facility] Note Reason [...] Take 1 tablet (more content not included)... [facility] 07-01-2024 Note Hospital Medicine Discharge Summary [...] hypertension, IBS presents a direct mission from [facility] with a chief complaint of chest [...] seen on her EKG. She went to [facility] for the symptoms. Labs were completed [...] on a heparin drip and transferred to [facility] for likely cardiac cath. # NSTEMI s/p [...] - Continue metformin. Dear Dr. Lidia MD, [facility] is advised to follow up [...] Your Medications These medications were sent to [facility]/pharmacy #[id number] [facility], [place] - [address] [address] carvedilol 25 mg tablet cloNIDine 0.1 mg [...] days Lab Units (more content not included)... [facility] 07-01-2024 Note [facility] CARDIOLOGY INPAT IENT PROGRESS NOTE Reason for follow up: NSTEMI Subjective Aby Madrigal, a 59 y.o. female patient, is transferred from [facility] for continuity of care. Patient reports that 3 days ago, she woke up in the mid of the night with indigestion, and a feeling fullness, but no pressure like chest pain. She presented to [facility], where she was found to be [...] 0.56 06/29/2024 E (more content not included)... [facility] 06-30-2024 Note Patient: Aby antony Procedure Information Date/Time: 06/30/24 1600 Procedure: Coronary angiography (Bilateral) Location: [facility] PHOTOVOLTAIC SUBCONTRACTOR 3 / [facility] (Cath) Providers: Brunilda Cuellar [...] Plan discussed with attending. Additional Equipment Requests [facility] 06-30-2024 Note 06/30/24 1446 Referral Data Referral Source vehicle delivery worker Referral Reason Follow up;Information Patient Information Primary Caregiver Self Accompanied by/Relationship daughters at bedside Activities of Daily Living Assistive Device Not applicable Living Arrangement (Current/Prior to Hospitalization) Private residence (three to four stairs) Ambulation Independent Dressing Independent Feeding Independent Behavior Oriented Communication Talks;Understands speaking;Understands Hong Konger Discharge Planning Support Systems Children (daughters will [...] questions for social work at this time. [facility] 06-30-2024 Note 06/30/24 1431 Admission Assessment [...] Interested Does the patient have a case supervisor assigned to them through their insurance? No [...] to send link and activate MyChart? No [facility] 06-30-2024 Note Case was discussed w [employer] the SALVADOR on 06/29/2024. I agree with the history, physical, assessment, and plan of care. I discussed the findings and therapeutic plan. I agree with the documentation, except for any updates below. Maurice Nogueira MD [facility] 06-30-2024 Note Hospital Medicine History and Physical 06/30/2024 1:15 AM THE HOSPITALIST TEAM PREFERS TO USE [employer] FOR COMMUNICATION 7AM-7PM. IF I DO NOT RESPOND WITHIN 15 MINUTES, PLEASE PAGE ME/CALL THROUGH THE PYRIDINE OPERATOR. FROM 7PM-7AM, PLEASE PAGE [phone](COVR) Chief Complaint Direct admission from [facility] with CP History of Present Illness Aby Madrigal is an 59 y.o. female who came from home with past medical history of anxiety, DM2, hypertension, IBS presents a direct mission from [facility] with a chief complaint of chest [...] seen on her EKG. She went to [facility] for the symptoms. Labs were completed [...] on a heparin drip and transferred to [facility] for likely cardiac cath. Review of System [...] complication, without long-term current use of insulin ([facility]) 06/30/2024 Chest pain 06/30/2024 Elevated troponin 06/30/2024 Hypertensive urgency 06/30/2024 QURESHI (dyspnea on exertion) 05/26/2024 Atherosclerosis of [place] coronary artery of [place] heart without angina pectoris 05/26/2024 Hyperlipidemia 05/26/2024 Murmur, heart 05/26/2024 Sepsis ([facility]) 07/14/2019 BV (bacterial vaginosis) 10/18/2017 GERD (gastroesophageal reflux disease) 10/18/2017 Essential hypertension 10/18/2017 TIA (transient ischemic attack) 10/18/2017 Assessment and Plan Aby Madrigal is an 59 y.o. female who came from home with past medical history of anxiety, DM2, hypertension, IBS presents a direct mission from [facility] with a chief complaint of chest pain. #Chest pain #Elevated troponin Troponin 0.1, will continue to trend -Patient continues to have mild chest discomfort upon arrival -Continue heparin drip -CXR negative for acute process at OSH -EKG showing normal sinus rhythm -N.p.o. for possible right and left cardiac cath in a.m. -Patient with new diastolic dysfunction on echoc (more content not included)... [facility] 06-21-2024 Note [place] [facility] - [facility] Subjective Aby Madrigal is a 59 y.o. year old female patient being seen for follow up [facility] ED per Dr. Murillo. She has [...] attack) QURESHI (dyspnea on exertion) Atherosclerosis of [place] coronary artery of [place] heart without angina pectoris Hyperlipidemia Murmur, heart [...] Judgment: Judgment no (more content not included)... [facility] 05-26-2024 Note [facility] Note Reason for cardiology [...] PSYCH: appropriate mood, (more content not included)... [facility] 11-25-2022 Note OPERATIVE NOTE OPERATION DATE: [...] 10 years. CC: Kendra Murillo M.D. [facility] 10-11-2022 Note Chief Complaint consultation for [...] Oral, (more content not included)... [facility] Comment on above: Result Comment: Elec tronically Signed By: DIPESH BUCKNER, Umm Hogan\Date and Time Signed: 10/11/22 11:01 EST Evaluation + Plan note No data available for this section [facility] Discharge instructions No data available for this section [facility] [place] Progress note No data available for this section [facility] [place] Summary Purpose Family History No Family History Records FoundNo Family History Records FoundNo Family History Records FoundNo Family History Records Found Advance Directives No Advanced Directives Records FoundNo Advanced Directives Records FoundNo Advanced Directives Records FoundNo Advanced Directives Records Found Additional Source Comments INFORMATION SOURCE (unrecogn ized section and content) DATE CREATED AUTHOR 12/17/2021 [facility] DATE CREATED AUTHOR AUTHOR'S ORGANIZ ATION 12/16/2022 [facility] DATE CREATED AUTHOR AUTHOR'S ORGANIZ ATION 03/26/2023 [facility] DATE CREATED AUTHOR AUTHOR'S ORGANIZ ATION 07/22/2024 [facility] Patient Care team informatio n (unrecognized section and content) Personnel Name: Kendra Murillo MD Address: Address: [address] [place] [address] Personnel Name: Kendra Murillo MD Address: Address: [address] [place] [address] FOR RECORDS PERTAINING TO PATIENTS WHO ARE [...] BE BASED ON THE PRIMARY CLINICAL RECORDS. [employer] [facility]. provides no warranty or guarantee of the accuracy or completeness of information in this document.
--- NOTE | 2024-07-23 20:47 | ECG_ITS ---
[facility] Test Date: 2024-07-23 Pat Name: MILAN RASMUSSEN Department: Room: - Gender: Female Retail Experience Specialist: : 1965 Requested By: KENDRA MORAN Order Number: [id number] Reading MD: KENDRA MORAN Measurements Intervals Has[place] Rate: 72 P: 52 HI: 172 QRS: 35 QRSD: 90 T: 190 QT: 372 QTc: 396 Interpretive Statements 1100 Sinus rhythm Compared to ECG 07/20/2024 21:11:18 Electronically Signed On 07-24-2024 12:35:25 EDT by KENDRA MORAN
[2024-07-23 21:21] LABS: Basophils Percent Auto 0.4 % (0.2-2.0); Eosinophils Absolute Auto 0.3 10^3/uL (0.0-0.7); Hematocrit 35.4 % (36.0-48.0); Hemoglobin 11.4 g/dL (12.0-16.0); Immature Granulocytes Abs Auto 0.02 10^3/uL (0.00-0.03); Immature Granulocytes Pct Auto 0.3 % (0.0-0.5); Lymphocytes Absolute Auto 1.7 10^3/uL (1.2-3.8); Lymphocytes Percent Auto 24.1 % (20.5-60.0); Mean Corpuscular HGB Conc 32.2 g/dL (29.9-35.2); Mean Corpuscular Hemoglobin 27.4 pg (26.7-34.0); Mean Corpuscular Volume 85.1 fL (81.0-99.0); Mean Platelet Volume 10.4 fL (9.5-13.5); Monocytes Absolute Auto 0.5 10^3/uL (0.3-0.8); Monocytes Percent Auto 7.5 % (1.7-12.0); Neutrophils Absolute Auto 4.4 10^3/uL (1.4-6.5); Neutrophils Percent Auto 63.7 % (43.0-75.0); Platelet Count 231 10^3/uL (150-450); Red Blood Count 4.16 10^6/uL (4.20-5.40); Red Cell Distribution Width 14.5 % (11.0-15.0); White Blood Count 6.9 10^3/uL (4.0-11.0)
[2024-07-23 21:35] LABS: Anion Gap 10.5; BUN Creatinine Ratio 9.4; Carbon Dioxide 28.7 mmol/L (21.0-32.0); Chloride 109 mmol/L (98-107); Estimated GFR (African America 52 (>=60); Estimated GFR (Non-African Ame 43 (>=60); Glucose 139 mg/dL (74-106); Potassium 3.2 mmol/L (3.5-5.1); Sodium 145 mmol/L (136-145); Troponin I High Sensitivity 12.8 pg/mL (4.0-51.3)
[2024-07-23] MEDS: HYDRALAZINE HCL 20 MG/ML VIAL 5 MG IVP (22:27)
[2024-07-23] MEDS: LORAZEPAM 1 MG TABLET PO (23:40)
[2024-07-24] VITALS (36 sets, daily range): BP systolic 85–208; BP diastolic 53–98; PULSE 67–94; TEMP 36.4–36.8; O2SAT 93–96; BMI 37.1
--- OUTSIDE RECORDS SUMMARY | 2024-07-24 00:17 | XMS_ITS | CCD ---
Author Organization [facility] Care Team Providers Care Fourchette Sewer Name Role Phone Kendra Murillo Primary Care Physician [phone] Umm MARTÍNEZ Attending Unavailable NILL, Umm Michael [...] LI Attending Unavailable LEONORAYKENDRA Referring Unavailable HORANI, NONA Admitting Unavailable HORANI, NONA Attending Unavailable BIJAN MITCHELL Attending Unavailable HORANI, NONA Referring Unavailable HORANI, NONA Referring Unavailable HORANI, NONA Referring Unavailable HORANI, NONA Referring Unavailable FELECIA CORDOBA Referring Unavailable GOMEZ AJY Attending Unavailable STEPHEN, SAMAR Attending Unavailable FENG CHRISTIE Attending Unavailable RICHA VIRAMONTES Attending Unavailable NONA ALFARO Referring Unavailable FENG CHRISTIE Attending Unavailable MESERET MAC Referring Unavailable FEDERICA ANDERSON Referring Unavailable HERMINIA LI Referring Unavailable JOSE BETANCUR Referring Unavailable NONA ALFARO Admitting Unavailable TAO HARRISON Attending Unavailable FEDERICA ANDERSON Referring Unavailable Allergies Allergy Classification Reported Allergen(s) Allergy Type Date of Onset Reaction(s) Facility (1 source) No Known Medication Allergies; 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: [No Known Medication Allergies] Propensity to adverse reactions (disorder) [facility] Repository (1 source) ALPRAZolam; 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: [ALPRAZOLAM] Drug Allergy [address] [place] [address] Repository (1 source) amLODIPine; 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: [AMLODIPINE] Drug Allergy 4 [facility] Repository (1 source) Lisinopril; 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: [LISINOPRIL] Drug Allergy [address] [place] [address] Repository Medications Current Medications Medication Drug Class(es) [...] 100 mg oral tablet (2 sources) beta-Adrenergic Tm[place]ie Start: 08-02-2019 take 1 mg by mouth [...] Coronary arteriosclerosis; 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: [Atherosclerotic heart disease of [place] coronary artery without angina pectoris] Onset: 3 [...] 11-26-2022 12-20-2019 Episodic Other aftercare (1 source) 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; 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: [HALFWAY CURRENT USE OF ASPIRIN] Onset: 11-26-2022 Episodic Other aftercare (1 source) Other 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 therapy; 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: [OTH HALFWAY CURRENT DRUG THERAPY] Onset: 11-26-2022 Episodic Other [...] Interpretation Reference Range Facility Telemedicine 07-20-2024 Telemedicine [id number] Aby Madrigal 1965 F Date Provider Department Center 07/20/2024 RICHA MERINO ONC DCC Family History Problem Relation Age of Onset Lung cancer Mother No Known Problems Father Lung cancer Sister Family Status - Relation Status Age at Mother Father Sister Level of Service:71346 [place] PHYS/QHP TELEPHONE EVALUATION 21-30 MIN () Reason for Visit and Comments: 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 CT CHEST 04-21-24- PET 06-21-24 Films requested 07-18-24 HAVING HARD TIME GETTING FILMS FROM [place] AGA[place]. Ginny at [place] ([phone] direct line) is working on sending them. CHECK [facility] FOR FILMS PLEASE Normal [facility] 37on 07-18-2024 37 It was great to [...] lab work done at one of these [facility] Sites The results will then come straight to me I appreciate it [facility] [address], [place] Hours Wednesday - Wednesday 8 AM - 4PM (Closed 12 - 12:30 PM daily) Phone: [facility] [address] Hours: Wednesday - Wednesday 6 AM - 5 PM Saturday: 7 AM - 2 PM Phone: [address] [place] Hours: Wednesday - Wednesday 7 AM - 3:30 PM Phone: [facility] [address] Hours: Wednesday 7 AM - 5:30 PM Phone: [facility] [address], [place] Hours: Wednesday 8 AM - 4:30 PM Phone: [facility] EDNURSon 07-18-2024 EDNURS ADR and relevant inf o reported to [facility] in pharmacy d/t safety net being down. Viet Kelly RN 07/18/24 1139 [facility] EDNURS SENT FROM MD OFFICE RE: LOW BP; RECENT DC FROM [facility] FOR SAME [facility] EDPROVon 07-18-2024 EDPROV HPI Chief [...] new meds yesterday. 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 [facility] Office Visiton 07-18-2024 Follow-up visit [id number] Aby Madrigal 1965 F Date Provider Department Center 07/18/2024 [id number], WADE [facility] ENDOCR [facility] Family History Problem Relation Age of Onset Lung cancer Mother No Known Problems Father Lung cancer Sister Family Status - Relation Status Age at Mother Father Sister Level of Service:19748 [place] OFFICE/OUTPATIENT NEW MODERATE MDM 45 MINUTES Reason for Visit and Comments: Nodules [Other] [facility] Follow-up visit [id number] Aby Madrigal 1965 F Date Provider Department [facility] 07/18/2024 [id number] WANG [facility] ENDOCR [facility] Family History Problem Relation Age of Onset Lung cancer Mother No Known Problems Father Lung cancer Sister Family Status - Relation Status Age at Mother Father Sister Level of Service:NOCHG [place]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 I am calling you to follow [...] No Patient Name Aby Madrigal Date 07/13/24 [facility] Telephoneon 07-13-2024 Telephone [id number] Aby Madrigal 1965 F Date Provider Department [facility] 07/13/2024 GINNY MALONEY [facility] C Family History Problem Relation Age of Onset Lung cancer Mother No Known Problems Father Lung cancer Sister Family Status - Relation Status Age at Mother Father Sister Reason for Visit and Comments: Hospital Follow-up [832] Normal [facility] 30on 07-12-2024 30 The patient is [...] to address these barriers include . Normal [facility] ANTI-XA (HEPARIN LEVEL)on HEPARIN UNFRACTIONATED (U/ML) IN PPP BY CHROMOGENIC METHOD 0.60 IU/mL Normal 0.3-0.7 [facility] Comment on above: Order Comment: Waive d Testing in the ED is performed under the ED CLIA certificate #[id number]. Result Comment: Radha roxaban and Apixaban will interfere with the anti Xa assay used to monitor UFH and LMWH. Performed By: #### L [id number] #### [facility] ([facility]) [address] [place] [address] BASIC METABOLIC PANELon 06-23 Anion gap [Moles/Vol] 10 mmol/L Normal 7-20 [facility] Comment on above: Performed By: #### L [id number] #### [facility] ([facility]) [address] [place] [address] Calcium [Mass/Vol] 8.8 mg/dL Normal 8.6-10.3 [facility] Comment on above: Performed By: #### L [id number] #### [facility] ([facility]) [address] [place] [address] Chloride [Moles/Vol] 108 mmol/L High 98-107 [facility] Comment on above: Performed By: #### L [id number] #### [facility] ([facility] [address] [place] [address] CO2 [Moles/Vol] 27 mmol/L Normal 21-31 [facility] Comment on above: Performed By: #### L [id number] #### [facility] (BEAKER) [address] [place] [address] Creatinine [Mass/Vol] 0.89 mg/dL Normal 0.60-1.20 [facility] Comment on above: Performed By: #### L [id number] #### [facility] ([facility]) [address] [place] [address] GLOMERULAR FILTRATION RATE ML/MIN/1.73 SQ M.PREDICTED 74.2 mL/min/1.73m*2 Normal >60.0 [facility] Comment on above: Result Comment: The [facility]???s estimated glomerular filtration rate (eGFR) will [...] group of individuals. Performed By: #### L [id number] #### [facility] ([facility]) [address] [place] [address] Glucose [Mass/Vol] 109 mg/dL High 70-100 [facility] Comment on above: Performed By: #### L [id number] #### [facility] ([facility]) [address] [place] [address] Potassium [Moles/Vol] 3.4 mmol/L Low 3.5-5.1 [facility] Comment on above: Performed By: #### L [id number] #### [facility] ([facility]) [address] [place] [address] Sodium [Moles/Vol] 142 mmol/L Normal 136-145 [facility] Comment on above: Performed By: #### L [id number] #### [facility] ([facility]) [address] [place] [address] Urea nitrogen [Mass/Vol] 11 mg/dL Normal 7-25 [facility] Comment on above: Performed By: #### L [id number] #### [facility] ([facility]) [address] [place] [address] UREA NITROGEN/CREATININE (MASS RATIO) IN SER/PLAS 12.4 Normal [facility] Comment on above: Performed By: #### L [id number] #### [facility] ([facility]) [address] [place] [address] CBC WITH AUTO DIFFERENTIALon 07-12-2024 Basophils (Bld) [#/Vol] 0.04 10*3/uL Normal 0.00-0.20 [facility] Comment on above: Performed By: #### L [id number] #### [facility] ([facility]) [address] [place] [address] Basophils/100 WBC (Bld) 0.6 % Normal 0.0-1.0 [facility] Comment on above: Performed By: #### L [id number] #### [facility] ([facility]) [address] [place] [address] Eosinophils (Bld) [#/Vol] 0.22 10*3/uL Normal 0.00-0.50 [facility] Comment on above: Performed By: #### L [id number] #### [facility] ([facility]) [address] [place] [address] Eosinophils/100 WBC (Bld) 3.5 % Normal 0.0-6.0 [facility] Comment on above: Performed By: #### L [id number] #### [facility] ([facility]) [address] [place] [address] Erythrocyte distribution width (RBC) [Ratio] 14.5 % Normal 11.5-15.0 [facility] Comment on above: Performed By: #### L [id number] #### [facility] ([facility]) [address] [place] [address] ERYTHROCYTE MEAN CORPUSCULAR HEMOGLOBIN CONCENTRATION (G/DL) BY AUTOMATED 32.7 g/dL Normal 32.0-35.0 [facility] Comment on above: Performed By: #### L [id number] #### [facility] ([facility]) [address] [place] [address] Hematocrit (Bld) [Volume fraction] 34.2 % Low 36.0-48.0 [facility] Comment on above: Performed By: #### L [id number] #### [facility] (BEAKER) [address] [place] [address] Hemoglobin (Bld) [Mass/Vol] 11.2 g/dL Low 12.0-15.0 [facility] Comment on above: Performed By: #### L [id number] #### [facility] ([facility] [address] [place] [address] Immature granulocytes (Bld) [#/Vol] 0.01 10*3/uL Normal 0.00-0.20 [facility] Comment on above: Performed By: #### L [id number] #### [facility] (BEAKER) [address] [place] [address] Immature granulocytes/100 WBC (Bld) 0.2 % Normal 0.0-1.0 [facility] Comment on above: Performed By: #### L [id number] #### [facility] (BEAKER) [address] [place] [address] Lymphocytes (Bld) [#/Vol] 2.37 10*3/uL Normal 1.20-4.00 [facility] Comment on above: Performed By: #### L [id number] #### [facility] (BEAKER) [address] [place] [address] Lymphocytes/100 WBC (Bld) 37.8 % Normal 20.0-45.0 [facility] Comment on above: Performed By: #### L [id number] #### [facility] ([facility]AKER) [address] [place] [address] MCH (RBC) [Entitic mass] 27.4 pg Normal 27.0-33.0 [facility] Comment on above: Performed By: #### L [id number] #### [facility] (BEAKER) [address] [place] [address] MCV (RBC) [Entitic vol] 83.6 fL Normal 82.0-98.0 [facility] Comment on above: Performed By: #### L [id number] #### [facility] ([facility]) [address] [place] [address] Monocytes (Bld) [#/Vol] 0.43 10*3/uL Normal 0.10-1.00 [facility] Comment on above: Performed By: #### L [id number] #### [facility] ([facility]) [address] [place] [address] Monocytes/100 WBC (Bld) 6.9 % Normal 5.0-12.0 [facility] Comment on above: Performed By: #### L [id number] #### [facility] ([facility]) [address] [place] [address] Neutrophils (Bld) [#/Vol] 3.20 10*3/uL Normal 1.60-7.60 [facility] Comment on above: Performed By: #### L [id number] #### [facility] ([facility]) [address] [place] [address] Neutrophils/100 WBC (Bld) 51.0 % Normal 40.0-72.0 [facility] Comment on above: Performed By: #### L [id number] #### [facility] ([facility]) [address] [place] [address] NRBC (PER 100 WBCS) BY AUTOMATED COUNT 0.0 % Normal 0 [facility] Comment on above: Performed By: #### L [id number] #### [facility] ([facility]) [address] [place] [address] PLATELETS (10*3/UL) IN BLOOD AUTOMATED COUNT 223 10*3/uL Normal 150-400 [facility] Comment on above: Performed By: #### L [id number] #### [facility] ([facility]) [address] [place] [address] RBC (Bld) [#/Vol] 4.09 10*6/uL Normal 3.80-5.00 [facility] Comment on above: Performed By: #### L [id number] #### [facility] ([facility]) [address] [place] [address] WBC (Bld) [#/Vol] 6.27 10*3/uL Normal 4.00-10.60 [facility] Comment on above: Performed By: #### L [id number] #### [facility] ([facility]) [address] [place] [address] MAGNESIUMon 07-12-2024 Magnesium [Mass/Vol] 1.7 mg/dL Low 1.9-2.7 [facility] Comment on above: Performed By: #### L [id number] #### [facility] ([facility]) [address] [place] [address] POCT GLUCOSE METER UNSOLICIT ED RESULTSon 07-12-2024 Glucose [Mass/Vol] 102 mg/dL Normal 70-105 [facility] Comment on above: Order Comment: Basel ine aPTT before initiating heparin infusion. Result Comment: brad [email or web address] Performed By: #### L [id number] #### [facility] ([facility]) [address] [place] [address] TROPONIN Ion 07-12-2024 Troponin I.cardiac [Mass/Vol] 0.01 ng/mL Normal 0.00-0.04 [facility] Comment on above: Performed By: #### L [id number] #### [facility] ([facility]) [address] [place] [address] 30on 07-11-2024 30 The patient is Moderately [...] and maintained or improved Outcome: Progressing Normal [facility] 30 The patient is Moderately Stable - Low risk of patient condition declining or worsening The patient's goals for the shift include no chest pain The clinical goals for the shift include stable vital/no chest pain Over the shift, the patient did not make progress toward the following goals. Barriers to progression include . Recommendations to address these barriers include . Normal [facility] ALDOSTERONEon 07-11-2024 ALDOSTERONE (NG/DL) IN SER/PLAS 4.9 ng/dL Normal [facility] Comment on above: Result Comment: INTE [...] reference intervals for this test in the [employer] [facility] Test Directory ([employer]). Performed By: [facility] [address] [place] [address] Lease Out Worker: Navneet Simeon MD, PhD CLIA Number: [id number] Performed By: #### L [id number] #### [facility] ([facility] [address] [place] [address] ANTI-XA (HEPARIN LEVEL)on HEPARIN UNFRACTIONATED (U/ML) IN PPP BY CHROMOGENIC METHOD 0.42 IU/mL Normal 0.3-0.7 [facility] Comment on above: Order Comment: Check anti-Xa level every 6 hours while on heparin infusion, or per protocol. Result Comment: Radha roxaban and Apixaban will interfere with the anti Xa assay used to monitor UFH and LMWH. Performed By: #### L [id number] #### [facility] (BEAKER) [address] [place] [address] HEPARIN UNFRACTIONATED (U/ML) IN PPP BY CHROMOGENIC METHOD 0.20 IU/mL Low 0.3-0.7 [facility] Comment on above: Order Comment: Waive d Testing in the ED is performed under the ED CLIA certificate #[id number]. Result Comment: Radha roxaban and Apixaban will interfere with the anti Xa assay used to monitor UFH and LMWH. Performed By: #### L [id number] #### [facility] ([facility]) [address] [facility] [place] [address] APTTon 07-11-2024 ACTIVATED PARTIAL THROMBOPLASTIN TIME IN PPP BY COAGULATION ASSAY 43.0 Seconds High 25.0-35.0 [facility] Comment on above: Result Comment: Clin ical significance of the APTT is questionable in the presence of heparin. Performed By: #### L [id number] #### [facility] ([facility]) [address] [place] [address] BASIC METABOLIC PANELon 06-23 Anion gap [Moles/Vol] 9 mmol/L Normal 7-20 [facility] Comment on above: Performed By: #### L [id number] #### [facility] ([facility]) [address] [place] [address] Calcium [Mass/Vol] 8.8 mg/dL Normal 8.6-10.3 [facility] Comment on above: Performed By: #### L [id number] #### [facility] ([facility]) [address] [facility] [place] [address] Chloride [Moles/Vol] 108 mmol/L High 98-107 [facility] Comment on above: Performed By: #### L [id number] #### [facility] ([facility]) [address] [facility] [place] [address] CO2 [Moles/Vol] 28 mmol/L Normal 21-31 [facility] Comment on above: Performed By: #### L [id number] #### [facility] ([facility] [address] [place] [address] Creatinine [Mass/Vol] 1.09 mg/dL Normal 0.60-1.20 [facility] Comment on above: Performed By: #### L [id number] #### [facility] ([facility]) [address] [place] [address] GLOMERULAR FILTRATION RATE ML/MIN/1.73 SQ M.PREDICTED 58.2 mL/min/1.73m*2 Low >60.0 [facility] Comment on above: Result Comment: [facility]???s estimated glomerular filtration rate (eGFR) will [...] individuals. Performed By: #### L [id number] #### [facility] ([facility]) [address] [place] [address] Glucose [Mass/Vol] 113 mg/dL High 70-100 [facility] Comment on above: Performed By: #### L [id number] #### [facility] ([facility]) [address] [place] [address] Potassium [Moles/Vol] 3.4 mmol/L Low 3.5-5.1 [facility] Comment on above: Performed By: #### L [id number] #### [facility] ([facility]) [address] [facility] [place] [address] Sodium [Moles/Vol] 142 mmol/L Normal 136-145 [facility] Comment on above: Performed By: #### L [id number] #### [facility] ([facility]) [address] [place] [address] Urea nitrogen [Mass/Vol] 14 mg/dL Normal 7-25 [facility] Comment on above: Performed By: #### L [id number] #### [facility] ([facility]) [address] [facility] [place] [address] UREA NITROGEN/CREATININE (MASS RATIO) IN SER/PLAS 12.8 Normal [facility] Comment on above: Performed By: #### L [id number] #### [facility] ([facility]) [address] [place] [address] CBC WITH AUTO DIFFERENTIALon 07-11-2024 Basophils (Bld) [#/Vol] 0.04 10*3/uL Normal 0.00-0.20 [facility] Comment on above: Performed By: #### L [id number] #### [facility] ([facility]) [address] [place] [address] Basophils/100 WBC (Bld) 0.6 % Normal 0.0-1.0 [facility] Comment on above: Performed By: #### L [id number] #### [facility] ([facility]) [address] [place] [address] Eosinophils (Bld) [#/Vol] 0.16 10*3/uL Normal 0.00-0.50 [facility] Comment on above: Performed By: #### L [id number] #### [facility] ([facility]) [address] [place] [address] Eosinophils/100 WBC (Bld) 2.2 % Normal 0.0-6.0 [facility] Comment on above: Performed By: #### L [id number] #### [facility] ([facility]) [address] [place] [address] Erythrocyte distribution width (RBC) [Ratio] 14.6 % Normal 11.5-15.0 [facility] Comment on above: Performed By: #### L [id number] #### [facility] ([facility]) [address] [place] [address] ERYTHROCYTE MEAN CORPUSCULAR HEMOGLOBIN CONCENTRATION (G/DL) BY AUTOMATED 32.0 g/dL Normal 32.0-35.0 [facility] Comment on above: Performed By: #### L [id number] #### [facility] ([facility]) [address] [place] [address] Hematocrit (Bld) [Volume fraction] 36.2 % Normal 36.0-48.0 [facility] Comment on above: Performed By: #### L [id number] #### [facility] (BEAKER) [address] [place] [address] Hemoglobin (Bld) [Mass/Vol] 11.6 g/dL Low 12.0-15.0 [facility] Comment on above: Performed By: #### L [id number] #### [facility] ([facility]) [address] [place] [address] Immature granulocytes (Bld) [#/Vol] 0.02 10*3/uL Normal 0.00-0.20 [facility] Comment on above: Performed By: #### L [id number] #### [facility] (BEAKER) [address] [place] [address] Immature granulocytes/100 WBC (Bld) 0.3 % Normal 0.0-1.0 [facility] Comment on above: Performed By: #### L [id number] #### [facility] (BEAKER) [address] [place] [address] Lymphocytes (Bld) [#/Vol] 2.34 10*3/uL Normal 1.20-4.00 [facility] Comment on above: Performed By: #### L [id number] #### [facility] (BEAKER) [address] [place] [address] Lymphocytes/100 WBC (Bld) 32.6 % Normal 20.0-45.0 [facility] Comment on above: Performed By: #### L [id number] #### [facility] (BEAKER) [address] [place] [address] MCH (RBC) [Entitic mass] 27.2 pg Normal 27.0-33.0 [facility] Comment on above: Performed By: #### L [id number] #### [facility] (BEAKER) [address] [place] [address] MCV (RBC) [Entitic vol] 85.0 fL Normal 82.0-98.0 [facility] Comment on above: Performed By: #### L [id number] #### [facility] ([facility]) [address] [place] [address] Monocytes (Bld) [#/Vol] 0.49 10*3/uL Normal 0.10-1.00 [facility] Comment on above: Performed By: #### L [id number] #### [facility] ([facility] [facility] [address] [place] [address] Monocytes/100 WBC (Bld) 6.8 % Normal 5.0-12.0 [facility] Comment on above: Performed By: #### L [id number] #### [facility] ([facility]) [address] [place] [address] Neutrophils (Bld) [#/Vol] 4.13 10*3/uL Normal 1.60-7.60 [facility] Comment on above: Performed By: #### L [id number] #### [facility] ([facility]) [address] [place] [address] Neutrophils/100 WBC (Bld) 57.5 % Normal 40.0-72.0 [facility] Comment on above: Performed By: #### L [id number] #### [facility] ([facility]) [address] [place] [address] NRBC (PER 100 WBCS) BY AUTOMATED COUNT 0.0 % Normal 0 [facility] Comment on above: Performed By: #### L [id number] #### [facility] ([facility]) [address] [place] [address] PLATELETS (10*3/UL) IN BLOOD AUTOMATED COUNT 245 10*3/uL Normal 150-400 [facility] Comment on above: Performed By: #### L [id number] #### [facility] ([facility] [address] [place] [address] RBC (Bld) [#/Vol] 4.26 10*6/uL Normal 3.80-5.00 [facility] Comment on above: Performed By: #### L [id number] #### [facility] ([facility]) [address] [place] [address] WBC (Bld) [#/Vol] 7.18 10*3/uL Normal 4.00-10.60 [facility] Comment on above: Performed By: #### L [id number] #### [facility] ([facility]) [address] [place] [address] CONSULTon 07-11-2024 CONSULT -- Attestation signed by [...] Brown is the endocrine surgeon in the [place] area that would be most appropriate and [...] with plan for outpatient follow up with OR Cardiology and endocrine surgery and endocrinology Meseret Mac MD Cardiology Consult Note Reason for Consult: Chest pain HPI: Aby Madrigal is a 59 y.o. female patient is presenting as a transfer from [facility] for the evaluation of chest pain. [...] medical history of Abnormal ECG, Diabetes mellitus ([facility]), Hyperlipidemia, Hypertension, Obstructive sleep apnea, Panic attacks, and Stroke ([facility]). Surgical History She has a [...] Value Ventricular Rate 56 Atrial Rate 56 TX Interval 180 QRS DURATION 94 QT Interval 430 QTC (more content not included)... Normal [facility] EDPROVon 07-11-2024 EDPROV HPI Chief Complaint [...] Pt states she was trasnfered here from [place] to be transferred to cardiology. Pt states she had a cardiac stent placed last week. She denies fever, coughing, vomiting, abdominal pain. She admits diarrhea. She felt better when given ativan and worse when she was given morphine. She has had her gallbladder removed. 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 The Emergency Physician/VAT OPERATOR/PA-C assumes full responsibility for those entries. The Emergency Physician/VAT OPERATOR/PA-C also attests that any patient testing or treatment that was instituted by nursing staff. Normal [facility] EDPROV HPI Chief Complaint Patient presents [...] Pt states she was trasnfered here from [place] to be transferred to cardiology. Pt states she had a cardiac stent placed last week. She denies fever, coughing, vomiting, abdominal pain. She admits diarrhea. She felt better when given ativan and worse when she was given morphine. She has had her gallbladder removed. 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 Decision-making details documented in ED Course. ECG/medicine tests: ordered and independent interpretation performed. Decision-making details documented in ED Course. Risk Drug therapy requiring intensive monitoring for toxicity. Decision regarding hospitalization. Minor surgery with identified risk factors. I, Basilia diallo (more content not included)... Invalid Interpretation Code [facility] POCT GLUCOSE METER UNSOLICIT ED RESULTSon 07-11-2024 Glucose [Mass/Vol] 122 mg/dL High 70-105 [facility] Comment on above: Order Comment: Waive d Testing in the ED is performed under the ED CLIA certificate #[id number]. Result Comment: [email or web address] Performed By: #### L [id number] #### [facility] ([facility]) [address] [place] [address] PROTIME-INRon 07-11-2024 INR IN PPP BY COAGULATION ASSAY 1.00 Normal 0.90-1.10 [facility] Comment on above: Result Comment: ACCC [...] RANGE. CHEST 1995;108:[id number]. Performed By: #### L [id number] #### [facility] ([facility]) [address] [place] [address] PROTHROMBIN TIME (PT) IN PPP BY COAGULATION ASSAY 13.2 Seconds Normal 12.3-14.8 [facility] Comment on above: Performed By: #### L [id number] #### [facility] ([facility]) [address] [place] [address] RENIN ACTIVITYon 07-11-2024 RENIN ACTIVITY <0.1 Normal [facility] Comment on above: Result Comment: INTE RPRETIVE INFORMATION: Renin Activity Adult, Normal sodium diet: Supine ................. 0.2-1.6 ng/mL/hr Upright ................ 0.5-4.0 ng/mL/hr Children, Normal sodium diet, Supine: Combs (1-7 days) ..... 2.0-35.0 ng/mL/hr Cord blood [...] developed and its performance characteristics determined by [facility]. It has not been cleared or approved by the US Food and Drug Administration. This test was performed in a CLIA certified laboratory and is intended for clinical purposes. Performed By: [facility] [address] [place] [id number] Lease Out Worker: Navneet Simeon MD, PhD CLIA Number: [id number] Performed By: #### L [id number] #### [facility] ([facility]) [address] [place] [address] TROPONIN Ion 07-11-2024 Troponin I.cardiac [Mass/Vol] 0.01 ng/mL Normal 0.00-0.04 [facility] Comment on above: Performed By: #### L [id number] #### [facility] ([facility]) [address] [place] [address] Office Visiton 07-10-2024 Follow-up visit [id number] Aby Madrigal 1965 F Date Provider Department Center 07/10/2024 [id number]-ZQUPEFBIJAN VAZQUEZ Family History Problem Relation Age of Onset Lung cancer Mother No Known Problems Father Lung cancer Sister Family Status - Relation Status Age at Mother Father Sister Level of Service:02361 [place] OFFICE/OUTPATIENT ESTABLISHED MOD MDM 30 MIN Reason for Visit and Comments: Coronary Artery Disease [187] Post-Cath [731] Normal [facility] 36on 07-03-2024 36 Post Discharge Call Good morning, I am Ginny Garcia, RN a lead nurse from [facility]. I am calling you to follow [...] No Patient Name Aby Madrigal Date 07/03/24 [facility] Telephoneon 07-03-2024 Telephone [id number] Aby Madrigal 1965 F Date Provider Department Center 07/03/2024 GINNY MALONEY [facility] Family History Problem Relation Age of Onset Lung cancer Mother No Known Problems Father Lung cancer Sister Family Status - Relation Status Age at Mother Father Sister Reason for Visit and Comments: Hospital Follow-up [832] Normal [facility] 30on 07-01-2024 30 The patient is [...] and maintained or improved Outcome: Progressing Normal [facility] BASIC METABOLIC PANELon 08- Anion gap [Moles/Vol] 14 mmol/L Normal 7-20 [facility] Comment on above: Performed By: #### L [id number] #### [facility] ([facility]) [address] [place] [address] Calcium [Mass/Vol] 8.2 mg/dL Low 8.6-10.3 [facility] Comment on above: Performed By: #### L [id number] #### [facility] ([facility]) [address] [place] [address] Chloride [Moles/Vol] 106 mmol/L Normal 98-107 [facility] Comment on above: Performed By: #### L [id number] #### [facility] ([facility]) [address] [place] [address] CO2 [Moles/Vol] 25 mmol/L Normal 21-31 [facility] Comment on above: Performed By: #### L [id number] #### [facility] ([facility]) [address] [place] [address] Creatinine [Mass/Vol] 0.91 mg/dL Normal 0.60-1.20 [facility] Comment on above: Performed By: #### L [id number] #### [facility] ([facility]) [address] [place] [address] GLOMERULAR FILTRATION RATE ML/MIN/1.73 SQ M.PREDICTED 72.2 mL/min/1.73m*2 Normal >60.0 [facility] Comment on above: Result Comment: [facility]???s estimated glomerular filtration rate (eGFR) will [...] individuals. Performed By: #### L [id number] #### [facility] ([facility]) [address] [place] [address] Glucose [Mass/Vol] 101 mg/dL High 70-100 [facility] Comment on above: Performed By: #### L [id number] #### [facility] ([facility]) [address] [place] [address] Potassium [Moles/Vol] 3.5 mmol/L Normal 3.5-5.1 [facility] Comment on above: Performed By: #### L [id number] #### [facility] ([facility]) [address] [place] [address] Sodium [Moles/Vol] 141 mmol/L Normal 136-145 [facility] Comment on above: Performed By: #### L [id number] #### [facility] ([facility]) [address] [place] [address] Urea nitrogen [Mass/Vol] 13 mg/dL Normal 7-25 [facility] Comment on above: Performed By: #### L [id number] #### [facility] ([facility]) [address] [place] [address] UREA NITROGEN/CREATININE (MASS RATIO) IN SER/PLAS 14.3 Normal [facility] Comment on above: Performed By: #### L [id number] #### [facility] ([facility]) [address] [place] [address] CBCon 07-01-2024 Erythrocyte distribution width (RBC) [Ratio] 15.4 % High 11.5-15.0 [facility] Comment on above: Performed By: #### L [id number] #### [facility] ([facility]) [address] [place] [address] ERYTHROCYTE MEAN CORPUSCULAR HEMOGLOBIN CONCENTRATION (G/DL) BY AUTOMATED 32.1 g/dL Normal 32.0-35.0 [facility] Comment on above: Performed By: #### L [id number] #### [facility] ([facility]) [address] [place] [address] Hematocrit (Bld) [Volume fraction] 38.6 % Normal 36.0-48.0 [facility] Comment on above: Performed By: #### L [id number] #### [facility] ([facility]) [address] [place] [address] Hemoglobin (Bld) [Mass/Vol] 12.4 g/dL Normal 12.0-15.0 [facility] Comment on above: Performed By: #### L [id number] #### [facility] ([facility]) [address] [place] [address] MCH (RBC) [Entitic mass] 26.9 pg Low 27.0-33.0 [facility] Comment on above: Performed By: #### L [id number] #### [facility] ([facility]) [address] [place] [address] MCV (RBC) [Entitic vol] 83.7 fL Normal 82.0-98.0 [facility] Comment on above: Performed By: #### L [id number] #### [facility] ([facility]) [address] [place] [address] PLATELETS (10*3/UL) IN BLOOD AUTOMATED COUNT 238 10*3/uL Normal 150-400 [facility] Comment on above: Performed By: #### L [id number] #### [facility] ([facility]) [address] [place] [address] RBC (Bld) [#/Vol] 4.61 10*6/uL Normal 3.80-5.00 [facility] Comment on above: Performed By: #### L [id number] #### [facility] ([facility]) [address] [place] [address] WBC (Bld) [#/Vol] 7.04 10*3/uL Normal 4.00-10.60 [facility] Comment on above: Performed By: #### L [id number] #### [facility] ([facility]) [address] [place] [address] LIPID PANELon 07-01-2024 CHOL/HDL 3.8 mg/dL Normal [facility] Comment on above: Performed By: #### L [id number] #### [facility] ([facility]) [address] [place] [address] Cholesterol [Mass/Vol] 128 mg/dL Normal 120-200 [facility] Comment on above: Performed By: #### L [id number] #### [facility] ([facility]) [address] [place] [address] Magnesium [Mass/Vol] 87 mg/dL Normal 40-149 [facility] Comment on above: Result Comment: TRIG LYCERIDE REFERENCE RANGE: 20 YEARS AND OLDER CARDIOVASCULAR RISK LESS THAN 150 mg/dL LOW RISK 150 TO 199 mg/dL BORDERLINE RISK 200 mg/dL AND GREATER HIGH RISK Performed By: #### L [id number] #### [facility] ([facility]) [address] [place] [address] Magnesium [Mass/Vol] 77 mg/dL Normal 0-160 [facility] Comment on above: Performed By: #### L [id number] #### [facility] ([facility]) [address] [place] [address] Magnesium [Mass/Vol] 34 mg/dL Normal 23-92 [facility] Comment on above: Performed By: #### L [id number] #### [facility] ([facility]) [address] [place] [address] NON HDL CHOL. (LDL+VLDL) 94 Normal [facility] Comment on above: Performed By: #### L [id number] #### [facility] ([facility]) [address] [place] [address] TOTAL VLDL-C 17 mg/dL Normal 0-40 [facility] Comment on above: Performed By: #### L [id number] #### [facility] ([facility]) [address] [place] [address] MAGNESIUMon 07-01-2024 Magnesium [Mass/Vol] 2.0 mg/dL Normal 1.9-2.7 [facility] Comment on above: Performed By: #### L [id number] #### [facility] ([facility]) [address] [place] [address] NURSNOTEon 07-01-2024 NURSNOTE Discharge instructio ns given, reviewed, questions, answered, signed, copy received. Normal [facility] POCT GLUCOSE METER UNSOLICIT ED RESULTSon 07-01-2024 Glucose [Mass/Vol] 124 mg/dL High 70-105 [facility] Comment on above: Order Comment: Waive d Testing in the ED is performed under the ED CLIA certificate #[id number]. Result Comment: [email or web address] Performed By: #### L [id number] #### [facility] ([facility]) [address] [place] [address] Glucose [Mass/Vol] 106 mg/dL High 70-105 [facility] Comment on above: Order Comment: Waive d Testing in the ED is performed under the ED CLIA certificate #[id number]. Result Comment: [email or web address] Performed By: #### L [id number] #### [facility] ([facility]) [address] [place] [address] TROPONIN Ion 07-01-2024 Troponin I.cardiac [Mass/Vol] 0.09 ng/mL High 0.00-0.04 [facility] Comment on above: Performed By: #### L [id number] #### [facility] ([facility]) [address] [place] [address] 30on 06-30-2024 30 The patient is Moderately Stable - Low risk of patient condition declining or worsening The patient's goals for the shift include comfort, rest The clinical goals for the shift include stable vitals, comfort Problem: Pain - Adult Goal: Verbalizes/displays adequate comfort level or baseline comfort level Outcome: Not Progressing Normal [facility] 30 Daily Case Managemen t Update [...] PT Recommendations: OT Recommendations: New Consults: Normal [facility] 30 The patient is Moderately Stable - Low risk of patient condition declining or worsening The patient's goals for the shift include COMFORT The clinical goals for the shift include VSS Over the shift, the patient did not make progress toward the following goals. Barriers to progression include . Recommendations to address these barriers include . Normal [facility] ANTI-XA (HEPARIN LEVEL)on HEPARIN UNFRACTIONATED (U/ML) IN PPP BY CHROMOGENIC METHOD 0.64 IU/mL Normal 0.3-0.7 [facility] Comment on above: Order Comment: Check anti-Xa level every 6 hours while on heparin infusion, or per protocol. Result Comment: Nardin roxaban and Apixaban will interfere with the anti Xa assay used to monitor UFH and LMWH. Performed By: #### L [id number] #### [facility] ([facility]) [address] [place] [address] BASIC METABOLIC PANELon Anion gap [Moles/Vol] 11 mmol/L Normal 7-20 [facility] Comment on above: Performed By: #### L [id number] #### [facility] ([facility]) [address] [place] [address] Calcium [Mass/Vol] 8.3 mg/dL Low 8.6-10.3 [facility] Comment on above: Performed By: #### L [id number] #### [facility] ([facility]) [address] [place] [address] Chloride [Moles/Vol] 110 mmol/L High 98-107 [facility] Comment on above: Performed By: #### L [id number] #### [facility] ([facility]) [address] [place] [address] CO2 [Moles/Vol] 26 mmol/L Normal 21-31 [facility] Comment on above: Performed By: #### L [id number] #### [facility] ([facility]) [address] [place] [address] Creatinine [Mass/Vol] 0.81 mg/dL Normal 0.60-1.20 [facility] Comment on above: Performed By: #### L [id number] #### [facility] ([facility]) [address] [place] [address] GLOMERULAR FILTRATION RATE ML/MIN/1.73 SQ M.PREDICTED 83.1 mL/min/1.73m*2 Normal >60.0 [facility] Comment on above: Result Comment: [facility]???s estimated glomerular filtration rate (eGFR) will [...] individuals. Performed By: #### L [id number] #### [facility] ([facility]) [address] [place] [address] Glucose [Mass/Vol] 110 mg/dL High 70-100 [facility] Comment on above: Performed By: #### L [id number] #### [facility] ([facility]) [address] [place] [address] Potassium [Moles/Vol] 3.7 mmol/L Normal 3.5-5.1 [facility] Comment on above: Performed By: #### L [id number] #### [facility] ([facility]) [address] [place] [address] Sodium [Moles/Vol] 143 mmol/L Normal 136-145 [facility] Comment on above: Performed By: #### L [id number] #### [facility] ([facility]) [address] [place] [address] Urea nitrogen [Mass/Vol] 10 mg/dL Normal 7-25 [facility] Comment on above: Performed By: #### L [id number] #### [facility] [address] [place] [address] UREA NITROGEN/CREATININE (MASS RATIO) IN SER/PLAS 12.3 Normal [facility] Comment on above: Performed By: #### L [id number] #### [facility] ([facility]) [address] [place] [address] CBCon 06-30-2024 Erythrocyte distribution width (RBC) [Ratio] 15.3 % High 11.5-15.0 [facility] Comment on above: Performed By: #### L [id number] #### [facility] ([facility]) [address] [place] [address] ERYTHROCYTE MEAN CORPUSCULAR HEMOGLOBIN CONCENTRATION (G/DL) BY AUTOMATED 31.3 g/dL Low 32.0-35.0 [facility] Comment on above: Performed By: #### L [id number] #### [facility] ([facility]) [address] [place] [address] Hematocrit (Bld) [Volume fraction] 36.7 % Normal 36.0-48.0 [facility] Comment on above: Performed By: #### L [id number] #### [facility] ([facility]) [address] [place] [address] Hemoglobin (Bld) [Mass/Vol] 11.5 g/dL Low 12.0-15.0 [facility] Comment on above: Performed By: #### L [id number] #### [facility] ([facility]ER) [address] [place] [address] MCH (RBC) [Entitic mass] 26.9 pg Low 27.0-33.0 [facility] Comment on above: Performed By: #### L [id number] #### [facility] ([facility]) [address] [place] [address] MCV (RBC) [Entitic vol] 85.7 fL Normal 82.0-98.0 [facility] Comment on above: Performed By: #### L [id number] #### [facility] ([facility]) [address] [place] [address] PLATELETS (10*3/UL) IN BLOOD AUTOMATED COUNT 243 10*3/uL Normal 150-400 [facility] Comment on above: Performed By: #### L [id number] #### [facility] ([facility]) [address] [facility] [place] [address] RBC (Bld) [#/Vol] 4.28 10*6/uL Normal 3.80-5.00 [facility] Comment on above: Performed By: #### L [id number] #### [facility] ([facility]) [address] [facility] [place] [address] WBC (Bld) [#/Vol] 7.41 10*3/uL Normal 4.00-10.60 [facility] Comment on above: Performed By: #### L [id number] #### [facility] ([facility]) [address] [facility] [place] [address] CONSULTon 06-30-2024 CONSULT Cardiology Consult Note Reason for Consult: NSTEMI, transfer from [facility] HPI: Aby Madrigal, a 59 y.o. female patient, is transferred from [facility] for continuity of care. Past medical history includes: HTN History of TIA DMII HLD SURESH Overweight Patient reports that 3 days ago, she woke up in the mid of the night with indigestion, and a feeling fullness, but no pressure like chest pain. She presented to [facility], where she was found to be [...] Value Ventricular Rate 71 Atrial Rate 71 TX Interval 176 QRS DURATION 92 QT Interval 424 QTC CALCULATION(BAZETT) 460 P [place] 52 R-[place] 19 T Wave [place] 164 Impression Normal sinus rhythm Left ventricular hypertrophy with repolarization abnormality ( R in aVL , [place] product ) Abnormal ECG No previous ECGs available Lab Results Component Value Date TROPONINI 0.10 (H) 06/29/2024 No echocardiogram results found for the past 12 months No nuclear medicine results found for the past 12 months Relevant Imaging Results ECG 12 lead Normal sinu (more content not included)... Normal [facility] HPon 06-30-2024 HP H&P reviewed. The patient was examined and there are no changes to the H&P. 59 y.o. year old female with a PMHx significant for DM2, hypertension presents a direct mission from [facility] with a chief complaint of chest [...] to proceed. Signed, Yris Oakley MD PGY-4 Service Tester Pager: [phone] [facility] POCT GLUCOSE METER UNSOLICIT ED RESULTSon 06-30-2024 Glucose [Mass/Vol] 170 mg/dL High 70-105 [facility] Comment on above: Order Comment: Waive d Testing in the ED is performed under the ED CLIA certificate #[id number]. Result Comment: [email or web address] Performed By: #### L [id number] #### [facility] ([facility]) [address] [place] [address] Glucose [Mass/Vol] 129 mg/dL High 70-105 [facility] Comment on above: Order Comment: Waive d Testing in the ED is performed under the ED CLIA certificate #[id number]. Result Comment: [email or web address] Performed By: #### L [id number] #### [facility] ([facility]) [address] [place] [address] Glucose [Mass/Vol] 167 mg/dL High 70-[address] [facility] Comment on above: Order Comment: Waive d Testing in the ED is performed under the ED CLIA certificate #[id number]. Result Comment: [email or web address] Performed By: #### L [id number] #### [facility] ([facility]) [address] [place] [address] TROPONIN Ion 06-30-2024 Troponin I.cardiac [Mass/Vol] 0.07 ng/mL High 0.00-0.04 [facility] Comment on above: Performed By: #### L [id number] #### [facility] ([facility]) [address] [place] [address] Troponin I.cardiac [Mass/Vol] 0.10 ng/mL High 0.00-0.04 [facility] Comment on above: Performed By: #### L [id number] #### [facility] ([facility]) [address] [place] [address] Troponin I.cardiac [Mass/Vol] 0.11 ng/mL Critically high 0.00-0.04 [facility] Comment on above: Result Comment: M-TR OPONIN INITIAL CRITICAL HIGH; RESPUN AND RETESTED Performed By: #### L [id number] #### [facility] ([facility]) [address] [place] [address] 30on 06-29-2024 30 The patient is Moderately Stable - Low risk of patient condition declining or worsening The patient's goals for the shift include COMFORT The clinical goals for the shift include VSS Normal [facility] APTTon 06-29-2024 ACTIVATED PARTIAL THROMBOPLASTIN TIME IN PPP BY COAGULATION ASSAY 34.5 Seconds Normal 25.0-35.0 [facility] Comment on above: Order Comment: Basel ine aPTT before initiating heparin infusion. Result Comment: Clin ical significance of the APTT is questionable in the presence of heparin. Performed By: #### L [id number] #### [facility] ([facility]) [address] [place] [address] B-TYPE NATRIURETIC PEPTIDEon 06-29-2024 Natriuretic peptide B (Bld) [Mass/Vol] 222 pg/mL High 0-100 [facility] Comment on above: Performed By: #### L [id number] #### [facility] ([facility]) [address] [place] [address] CBC WITH AUTO DIFFERENTIALon 06-29-2024 Basophils (Bld) [#/Vol] 0.05 10*3/uL Normal 0.00-0.20 [facility] Comment on above: Performed By: #### L [id number] #### [facility] ([facility]) [address] [place] [address] Basophils/100 WBC (Bld) 0.6 % Normal 0.0-1.0 [facility] Comment on above: Performed By: #### L [id number] #### [facility] ([facility]) [address] [address] Eosinophils (Bld) [#/Vol] 0.18 10*3/uL Normal 0.00-0.50 [facility] Comment on above: Performed By: #### L [id number] #### [facility] ([facility]) [address] [address] Eosinophils/100 WBC (Bld) 2.1 % Normal 0.0-6.0 [facility] Comment on above: Performed By: #### L [id number] #### [facility] ([facility]) [address] [address] Erythrocyte distribution width (RBC) [Ratio] 14.9 % Normal 11.5-15.0 [facility] Comment on above: Performed By: #### L [id number] #### [facility] ([facility]) [address] [address] ERYTHROCYTE MEAN CORPUSCULAR HEMOGLOBIN CONCENTRATION (G/DL) BY AUTOMATED 32.9 g/dL Normal 32.0-35.0 [facility] Comment on above: Performed By: #### L [id number] #### [facility] [address] [address] Hematocrit (Bld) [Volume fraction] 35.9 % Low 36.0-48.0 [facility] Comment on above: Performed By: #### L [id number] #### [facility] ([facility]) [address] [place] [address] Hemoglobin (Bld) [Mass/Vol] 11.8 g/dL Low 12.0-15.0 [facility] Comment on above: Performed By: #### L [id number] #### [facility] ([facility]) [address] [address] Immature granulocytes (Bld) [#/Vol] 0.03 10*3/uL Normal 0.00-0.20 [facility] Comment on above: Performed By: #### L [id number] #### [facility] ([facility]) [address] [place] [address] Immature granulocytes/100 WBC (Bld) 0.3 % Normal 0.0-1.0 [facility] Comment on above: Performed By: #### L [id number] #### [facility] ([facility]) [address] [address] Lymphocytes (Bld) [#/Vol] 2.02 10*3/uL Normal 1.20-4.00 [facility] Comment on above: Performed By: #### L [id number] #### [facility] ([facility]) [address] [place] [address] Lymphocytes/100 WBC (Bld) 23.5 % Normal 20.0-45.0 [facility] Comment on above: Performed By: #### L [id number] #### [facility] ([facility] [address] [address] MCH (RBC) [Entitic mass] 27.2 pg Normal 27.0-33.0 [facility] Comment on above: Performed By: #### L [id number] #### [facility] ([facility]) [address] [place] [address] MCV (RBC) [Entitic vol] 82.7 fL Normal 82.0-98.0 [facility] Comment on above: Performed By: #### L [id number] #### [facility] ([facility]) [address] [place] [address] Monocytes (Bld) [#/Vol] 0.56 10*3/uL Normal 0.10-1.00 [facility] Comment on above: Performed By: #### L [id number] #### [facility] ([facility]) [address] [place] [address] Monocytes/100 WBC (Bld) 6.5 % Normal 5.0-12.0 [facility] Comment on above: Performed By: #### L [id number] #### [facility] ([facility]) [address] [place] [address] Neutrophils (Bld) [#/Vol] 5.74 10*3/uL Normal 1.60-7.60 [facility] Comment on above: Performed By: #### L [id number] #### [facility] ([facility]) [address] [place] [address] Neutrophils/100 WBC (Bld) 67.0 % Normal 40.0-72.0 [facility] Comment on above: Performed By: #### L [id number] #### [facility] ([facility]) [address] [place] [address] NRBC (PER 100 WBCS) BY AUTOMATED COUNT 0.0 % Normal 0 [facility] Comment on above: Performed By: #### L [id number] #### [facility] ([facility]) [address] [place] [address] PLATELETS (10*3/UL) IN BLOOD AUTOMATED COUNT 233 10*3/uL Normal 150-400 [facility] Comment on above: Performed By: #### L [id number] #### [facility] ([facility]) [address] [place] [address] RBC (Bld) [#/Vol] 4.34 10*6/uL Normal 3.80-5.00 [facility] Comment on above: Performed By: #### L [id number] #### [facility] ([facility]) [address] [place] [address] WBC (Bld) [#/Vol] 8.58 10*3/uL Normal 4.00-10.60 [facility] Comment on above: Performed By: #### L [id number] #### [facility] ([facility]) [address] [place] [address] COMPREHENSIVE METABOLIC PANE Alec 06-29-2024 Albumin [Mass/Vol] 3.8 g/dL Normal 3.5-5.7 [facility] Comment on above: Performed By: #### L [id number] #### [facility] ([facility]) [address] [place] [address] ALP [Catalytic activity/Vol] 64 U/L Normal 34-104 [facility] Comment on above: Performed By: #### L [id number] #### [facility] ([facility]) [address] [place] [address] ALT [Catalytic activity/Vol] 35 U/L Normal 7-52 [facility] Comment on above: Performed By: #### L [id number] #### [facility] ([facility]) [address] [place] [address] Anion gap [Moles/Vol] 12 mmol/L Normal 7-20 [facility] Comment on above: Performed By: #### L [id number] #### [facility] ([facility]) [address] [place] [address] AST [Catalytic activity/Vol] 21 U/L Normal 13-39 [facility] Comment on above: Performed By: #### L [id number] #### [facility] ([facility]) [address] [place] [address] Bilirubin [Mass/Vol] 0.4 mg/dL Normal 0.3-1.0 [facility] Comment on above: Performed By: #### L [id number] #### [facility] ([facility]) [address] [place] [address] Calcium [Mass/Vol] 8.5 mg/dL Low 8.6-10.3 [facility] Comment on above: Performed By: #### L [id number] #### [facility] ([facility]) [address] [place] [address] Chloride [Moles/Vol] 112 mmol/L High 98-107 [facility] Comment on above: Performed By: #### L [id number] #### [facility] ([facility]) [address] [place] [address] CO2 [Moles/Vol] 22 mmol/L Normal 21-31 [facility] Comment on above: Performed By: #### L [id number] #### [facility] ([facility]) [address] [place] [address] Creatinine [Mass/Vol] 0.92 mg/dL Normal 0.60-1.20 [facility] Comment on above: Performed By: #### L [id number] #### [facility] ([facility]) [address] [place] [address] GLOMERULAR FILTRATION RATE ML/MIN/1.73 SQ M.PREDICTED 71.3 mL/min/1.73m*2 Normal >60.0 [facility] Comment on above: Result Comment: [facility]???s estimated glomerular filtration rate (eGFR) will [...] individuals. Performed By: #### L [id number] #### [facility] ([facility]) [address] [place] [address] Glucose [Mass/Vol] 108 mg/dL High 70-100 [facility] Comment on above: Performed By: #### L [id number] #### [facility] ([facility]) [address] [place] [address] Potassium [Moles/Vol] 3.7 mmol/L Normal 3.5-5.1 [facility] Comment on above: Performed By: #### L [id number] #### [facility] ([facility]) [address] [place] [address] Protein [Mass/Vol] 6.1 g/dL Normal 6.0-8.3 [facility] Comment on above: Performed By: #### L [id number] #### [facility] ([facility]) [address] [place] [address] Sodium [Moles/Vol] 142 mmol/L Normal 136-145 [facility] Comment on above: Performed By: #### L [id number] #### [facility] ([facility]) [address] [place] [address] Urea nitrogen [Mass/Vol] 11 mg/dL Normal 7-25 [facility] Comment on above: Performed By: #### L [id number] #### [facility] ([facility]) [address] [place] [address] UREA NITROGEN/CREATININE (MASS RATIO) IN SER/PLAS 12.0 Normal [facility] Comment on above: Performed By: #### L [id number] #### [facility] ([facility]) [address] [place] [address] MAGNESIUMon 06-29-2024 Magnesium [Mass/Vol] 1.7 mg/dL Low 1.9-2.7 [facility] Comment on above: Performed By: #### L [id number] #### [facility] ([facility]) [address] [place] [address] PHOSPHORUSon 06-29-2024 Magnesium [Mass/Vol] 2.9 mg/dL Normal 2.5-5.0 [facility] Comment on above: Performed By: #### L [id number] #### [facility] ([facility]) [address] [place] [address] PROTIME-INRon 06-29-2024 INR IN PPP BY COAGULATION ASSAY 0.99 Normal 0.90-1.10 [facility] Comment on above: Result Comment: ACCC [...] RANGE. CHEST 1995;108:231S-246S. Performed By: #### L [id number] #### [email or web address] [address] [place] [address] PROTHROMBIN TIME (PT) IN PPP BY COAGULATION ASSAY 13.1 Seconds Normal 12.3-14.8 [facility] Comment on above: Performed By: #### L [id number] #### [email or web address] [address] [place] [address] TROPONIN Ion 06-29-2024 Troponin I.cardiac [Mass/Vol] 0.10 ng/mL High 0.00-0.04 [facility] Comment on above: Performed By: #### L [id number] #### [facility] [address] [place] [address] Office Visiton 06-21-2024 Follow-up visit [id number] Aby Madrigal 1965 F Date Provider Department Center 06/21/2024 GOMEZ KENDALL [facility] Family History Problem Relation Age of Onset Lung cancer Mother No Known Problems Father Lung cancer Sister Family Status - Relation Status Age at Mother Father Sister Level of Service:30593 [place] OFFICE/OUTPATIENT ESTABLISHED MOD MDM 30 MIN Normal [facility] Office Visiton 05-26-2024 Follow-up visit [id number] Aby Madrigal 1965 F Date Provider Department Center 05/26/2024 [id number]-LARWJBBIJAN MITCHELL RIAZ [place] Family History Problem Relation Age of Onset Lung cancer Mother No Known Problems Father Lung cancer Sister Family Status - Relation Status Age at Mother Father Sister Level of Service:26677 [place] OFFICE/OUTPATIENT NEW MODERATE MDM 45 MINUTES Normal [facility] Outside Colonoscopyon 2022 Outside Colonoscopy [id number] 0CD:127 Normal [facility] Reminderson 11-27-2022 Reminders - From: Na Hayes LPN To: GSN - Clinical; Sent: 11/27/2022 12:46:10 EST Show up: 10/25/2032 07:00:00 EST Subject: colonoscopy recall Due Date/Time: 11/25/2032 07:00:00 EST Reminder/Recall Patient is due for screening colonoscopy 11/25/2032. Normal [facility] Lab Reportson 11-24-2022 Lab Reports [id number] 0CD:127 Normal [facility] Covid-19 PCR (CVDTBH)on 10-24 SARS-CoV-2 (COVID-19) RNA BECK+probe Ql (Unsp spec) Not detected Normal NOT DETECTED [facility] Comment on above: Result Comment: This test is not yet approved or cleared by the [place] FDA. When there are no FDA-approved or cleared tests available, and other criteria are met, FDA can make tests available under an emergency access mechanism called an Emergency Use Authorization (EUA). The EUA for this test is supported by the [place] of Health and Human Service's (HHS's) declaration [...] consistent with SARS-CoV-2. Performed By: #### [facility] #### [facility] [address] [place] [address] Dr. Rich Cutler Consent for Procedure/Surger yon 10-07-2022 Consent for Procedure/Surgery [id number] 0CD:127 Normal [facility] Ambulatory Visit Summaryon 1 12-06-2021 Ambulatory [...] for. Allergic conjunctivitis Anticoagulated Kidney stones Normal [facility] VC VENOUS REFLUX NINO LMTon 1 12-02-2021 VC VENOUS REFLUX NINO LMT Patient: ABY MADRIGAL Exam Date: 10/02/2022 : 1965 Gender:F Ordering : DR KENDRA MURILLO . Admission #: [id number] Family : Order #: [id number] CLICK HERE TO VIEW EXAM RADIOLOGY REPORT [...] chronic thrombus visualized Compressibility: Normal Flow: Normal Wire Coater: Dist/med calf 3.3mm with 0s reflux. Tech Note: Incompetent SFJ and GSV. Patent varicose vein mid/med calf 2.9mm with 0s reflux. Patent varicose vein prox/post calf 3.8mm with 0s reflux. Patent varicose vein dist/med thigh 3.8mm with 2.0s reflux. CONCLUSION: 1. Mild right and xozn-yl-xwszkqao left great saphenous vein venous insufficiency with dilatation 2. Left saphenous popliteal junction reflux 3. Mild left anterior accessory saphenous vein venous insufficiency without dilatation 4. Small bilateral incompetent varicose veins Dictated by: Adelia Lezama MD on 10/02/2022 at 13:36 Approved by: Adelia Lezama MD on 10/02/2022 at 13:52 Normal [facility] ECHOCARDIO M/2D COMPLETEon 1 11-30-2021 ECHOCARDIO M/2D COMPLETE Patient: ABY MADRIGAL Exam Date: 09/30/2022 : 1965 Gender:F Ordering : DR KENDRA MURILLO . Admission #: [id number] Family : Order #: [id number] CLICK HERE TO VIEW EXAM ECHOCARDIOGRAM REPORT [...] M.D. on 09/30/2022 at 18:37 Normal [facility] BNPon 09-24-2022 Natriuretic peptide B (Bld) [Mass/Vol] 501.0 pg/mL Normal <=900.0 [facility] Comment on above: Performed By: #### C VDTB #### [facility] [address] [address] [address] Rich Cutler CBC AUTO DIFFon 09-24-2022 BASO # 0.1 103/ul Normal 0.0-0.1 [facility] Comment on above: Performed By: #### C VDTB #### [facility] [address] [address] [address] Rich Cutler Basophils/100 WBC (Bld) 0.8 % Normal 0.2-2.0 [facility] Comment on above: Performed By: #### C VDTBH #### [facility] [address] [place] [address] Dr. Rich Cutler EO # 0.3 103/ul Normal 0.0-0.7 [facility] Comment on above: Performed By: #### C VDTBH #### [facility] [address] [place] [address] Dr. Rich Cutler Eosinophils/100 WBC (Bld) 3.4 % Normal 0.9-7.0 [facility] Comment on above: Performed By: #### C VDTBH #### [facility] [address] [place] [address] Dr. Rich Cutler Erythrocyte distribution width (RBC) [Ratio] 13.3 % Normal 11.0-15.0 [facility] Comment on above: Performed By: #### C VDTBH #### [facility] [address] [place] [address] Dr. Rich Cutler Hematocrit (Bld) [Volume fraction] 40.5 % Normal 36.0-48.0 [facility] Comment on above: Performed By: #### C VDTBH #### [facility] [address] [place] [address] Dr. Rich Cutler Hemoglobin (Bld) [Mass/Vol] 13.1 g/dL Normal 12.0-16.0 [facility] Comment on above: Performed By: #### C VDTBH #### [facility] [address] [place] [address] Dr. Rich Cutler IG # 0.02 10e3/ul Normal 0.00-0.03 [facility] Comment on above: Performed By: #### C VDTBH #### [facility] [address] [place] [address] Dr. Rich Cutler IG % 0.3 % Normal 0.0-0.5 [facility] Comment on above: Performed By: #### C VDTBH #### [facility] [address] [place] [address] Dr. Rich Cutler LYMPH # 2.7 103/ul Normal 1.2-3.8 [facility] Comment on above: Performed By: #### C VDTBH #### [facility] [address] [place] [address] Dr. Rich Cutler Lymphocytes/100 WBC (Bld) 35.4 % Normal 20.5-60.0 [facility] Comment on above: Performed By: #### C VDTBH #### [facility] [address] [place] [address] Dr. Rich Cutler MANUAL DIFF REQ NO Normal [facility] Comment on above: Performed By: #### C VDTBH #### [facility] [address] [place] [address] Dr. Rich Cutler MCH (RBC) [Entitic mass] 28.2 pg Normal 26.7-34.0 [facility] Comment on above: Performed By: #### C VDTBH #### [facility] [address] [place] [address] Dr. Rich Cutler MCHC (RBC) [Mass/Vol] 32.3 g/dL Normal 29.9-35.2 [facility] Comment on above: Performed By: #### C VDTBH #### [facility] [address] [place] [address] Dr. Rich Cutler MCV (RBC) [Entitic vol] 87.3 fL Normal 81.0-99.0 [facility] Comment on above: Performed By: #### C VDTBH #### [facility] [address] [place] [address] Dr. Rich Cutler MONO # 0.5 103/ul Normal 0.3-0.8 [facility] Comment on above: Performed By: #### C VDTBH #### [facility] [address] [place] [address] Dr. Rich Cutler Monocytes/100 WBC (Bld) 6.5 % Normal 1.7-12.0 [facility] Comment on above: Performed By: #### C VDTBH #### [facility] [address] [place] [address] Dr. Rich Cutler NEUT # 4.1 103/ul Normal 1.4-6.5 [facility] Comment on above: Performed By: #### C VDTBH #### [facility] [address] [place] [address] Dr. Rich Cutler Neutrophils/100 WBC (Bld) 53.6 % Normal 43.0-75.0 [facility] Comment on above: Performed By: #### C VDTBH #### [facility] [address] [place] [address] Dr. Rich Cutler Platelet mean volume (Bld) [Entitic vol] 10.3 fL Normal 9.5-13.5 [facility] Comment on above: Performed By: #### C VDTBH #### [facility] [address] [place] [address] Dr. Rich Cutler PLT 283 103/ul Normal 150-450 [facility] Comment on above: Performed By: #### C VDTBH #### [facility] [address] [place] [address] Dr. Rich Cutler RBC 4.64 106/ul Normal 4.20-5.40 [facility] Comment on above: Performed By: #### C VDTBH #### [facility] [address] [place] [address] Dr. Rich Cutler WBC 7.6 103/ul Normal 4.0-11.0 [facility] Comment on above: Performed By: #### C VDTBH #### [facility] [address] [place] [address] Dr. Rich Cutler INSULINon 09-24-2022 Insulin 15.1 uIU/mL Normal 2.6-24.9 [facility] Comment on above: Performed By: #### C VDTBH #### [facility] [address] [place] [address] Dr. Rich Cutler PROF 14(COMP METB)on 022 Albumin [Mass/Vol] 3.5 g/dL Normal 3.4-5.0 [facility] Comment on above: Performed By: #### C VDTBH #### [facility] [address] [address] [address] Rich Cutler Albumin/Globulin [Mass ratio] 1.0 {ratio} Normal [facility] Comment on above: Performed By: #### C VDTBH #### [facility] [address] [address] [address] Rich Cutler ALP [Catalytic activity/Vol] 91 U/L Normal 46-116 [facility] Comment on above: Performed By: #### C VDTBH #### [facility] [address] [place] [address] Dr. Rich Cutler ALT [Catalytic activity/Vol] 47 U/L Normal 14-59 [facility] Comment on above: Performed By: #### C VDTBH #### [facility] [address] [place] [address] Dr. Rich Cutler Anion gap [Moles/Vol] 11.7 mmol/L Normal [facility] Comment on above: Performed By: #### C VDTBH #### [facility] [address] [place] [address] Dr. Rich Cutler AST [Catalytic activity/Vol] 24 U/L Normal 15-37 [facility] Comment on above: Performed By: #### C VDTBH #### [facility] [address] [place] [address] Dr. Rich Cutler Bilirubin [Mass/Vol] 0.2 mg/dL Normal 0.2-1.0 [facility] Comment on above: Performed By: #### C VDTBH #### [facility] [address] [place] [address] Dr. Rich Cutler Calcium [Mass/Vol] 8.9 mg/dL Normal 8.5-10.1 [facility] Comment on above: Performed By: #### C VDTBH #### [facility] [address] [place] [address] Dr. Rich Cutler Chloride [Moles/Vol] 105 mmol/L Normal 98-107 [facility] Comment on above: Performed By: #### C VDTBH #### [facility] [address] [address] [address] Rich Cutler CO2 [Moles/Vol] 28.1 mmol/L Normal 21.0-32.0 [facility] Comment on above: Performed By: #### C VDTBH #### [facility] [address] [address] [address] Rich Cutler Creatinine [Mass/Vol] 1.13 mg/dL Critically high 0.55-1.02 [facility] Comment on above: Performed By: #### C VDTBH #### [facility] [address] [address] [address] Rich Cutler EGFR-AF TUNISIAN 60 mL/min/1.73m2 Normal >=60 [facility] Comment on above: Performed By: #### C VDTBH #### [facility] [address] [place] [address] Dr. Rich Cutler EGFR-NON AF TUNISIAN 49 mL/min/1.73m2 Critically low >=60 [facility] Comment on above: Performed By: #### C VDTBH #### [facility] [address] [place] [address] Dr. Rich Cutler Globulin (S) [Mass/Vol] 3.5 g/dL Normal [facility] Comment on above: Performed By: #### C VDTBH #### [facility] [address] [place] [address] Dr. Rich Cutler Glucose [Mass/Vol] 119 mg/dL Critically high 74-106 [facility] Comment on above: Performed By: #### C VDTBH #### [facility] [address] [place] [address] Dr. Rich Cutler Potassium [Moles/Vol] 3.8 mmol/L Normal 3.5-5.1 [facility] Comment on above: Performed By: #### C VDTBH #### [facility] [address] [place] [address] Dr. Rich Cutler Protein [Mass/Vol] 7.0 g/dL Normal 6.4-8.2 [facility] Comment on above: Performed By: #### C VDTBH #### [facility] [address] [address] [address] Rich Cutler Sodium [Moles/Vol] 141 mmol/L Normal 136-145 [facility] Comment on above: Performed By: #### C VDTBH #### [facility] [address] [address] [address] Rich Cutler Urea nitrogen [Mass/Vol] 16.0 mg/dL Normal 7.0-18.0 [facility] Comment on above: Performed By: #### C VDTBH #### [facility] [address] [address] [address] Rich Cutler Urea nitrogen/Creatinine [Mass ratio] 14.2 mg/mg Normal [facility] Comment on above: Performed By: #### C VDTBH #### [facility] [address] [place] [address] Dr. Rich Cutler TROPONIN, HIGH SENSITIVITYon 09-24-2022 HSTROP 10.6 pg/mL Normal 4.0-51.3 [facility] Comment on above: Result Comment: CUT- OFF POINTS HAVE BEEN ESTABLISHED BASED ON THE FOURTH UNIVERSAL DEFINITIONS OF MYOCARDIAL INFARCTION. THE UPPER REFERENCE LIMIT (URL) OF TROPONIN, DEFINED THE 99TH PERCENTILE OF cTnI DISTRIBUTION IN A REFERENCE POPULATION, HAS BEEN CONFIRMED THE DECISION THRESHOLD FOR [place] DIAGNOSIS. Performed By: #### C VDTBH #### [facility] [address] [place] [address] Dr. Rich Cutler XR CHEST 1 Von [...] by: UMM HUMPHRIES Date: 2022-09-24 04:08 Normal [facility] CBC AUTO DIFFon 09-23-2022 BASO # 0.1 103/ul Normal 0.0-0.1 [facility] Comment on above: Performed By: #### C BC #### [facility] [address] [place] [address] Dr. Rich Cutler Basophils/100 WBC (Bld) 0.8 % Normal 0.2-2.0 [facility] Comment on above: Performed By: #### C BC #### [facility] [address] [place] [address] Dr. Rich Cutler EO # 0.2 103/ul Normal 0.0-0.7 [facility] Comment on above: Performed By: #### C BC #### [facility] [address] [place] [address] Dr. Rich Cutler Eosinophils/100 WBC (Bld) 3.5 % Normal 0.9-7.0 [facility] Comment on above: Performed By: #### C BC #### [facility] [address] [place] [address] Dr. Rich Cutler Erythrocyte distribution width (RBC) [Ratio] 13.4 % Normal 11.0-15.0 [facility] Comment on above: Performed By: #### C BC #### [facility] [address] [place] [address] Dr. Rich Cutler Hematocrit (Bld) [Volume fraction] 42.3 % Normal 36.0-48.0 [facility] Comment on above: Performed By: #### C BC #### [facility] [address] [place] [address] Dr. Rich Cutler Hemoglobin (Bld) [Mass/Vol] 13.4 g/dL Normal 12.0-16.0 [facility] Comment on above: Performed By: #### C BC #### [facility] [address] [place] [address] Dr. Rich Cutler IG # 0.03 10e3/ul Normal 0.00-0.03 [facility] Comment on above: Performed By: #### C BC #### [facility] [address] [place] [address] Dr. Rich Cutler IG % 0.5 % Normal 0.0-0.5 [facility] Comment on above: Performed By: #### C BC #### [facility] [address] [place] [address] Dr. Rich Cutler LYMPH # 2.9 103/ul Normal 1.2-3.8 [facility] Comment on above: Performed By: #### C BC #### [facility] [address] [place] [address] Dr. Rich Cutler Lymphocytes/100 WBC (Bld) 44.0 % Normal 20.5-60.0 [facility] Comment on above: Performed By: #### C BC #### [facility] [address] [place] [address] Dr. Rich Cutler MANUAL DIFF REQ NO Normal [facility] Comment on above: Performed By: #### C BC #### [facility] [address] [place] [address] Dr. Rich Cutler MCH (RBC) [Entitic mass] 28.4 pg Normal 26.7-34.0 [facility] Comment on above: Performed By: #### C BC #### [facility] [address] [place] [address] Dr. Rich Cutler MCHC (RBC) [Mass/Vol] 31.7 g/dL Normal 29.9-35.2 [facility] Comment on above: Performed By: #### C BC #### [facility] [address] [place] [address] Dr. Rich Cutler MCV (RBC) [Entitic vol] 89.6 fL Normal 81.0-99.0 [facility] Comment on above: Performed By: #### C BC #### [facility] [address] [place] [address] Dr. Rich Cutler MONO # 0.4 103/ul Normal 0.3-0.8 [facility] Comment on above: Performed By: #### C BC #### [facility] [address] [place] [address] Dr. Rich Cutler Monocytes/100 WBC (Bld) 6.6 % Normal 1.7-12.0 [facility] Comment on above: Performed By: #### C BC #### [facility] [address] [place] [address] Dr. Rich Cutler NEUT # 2.9 103/ul Normal 1.4-6.5 [facility] Comment on above: Performed By: #### C BC #### [facility] [address] [place] [address] Dr. Rich Cutler Neutrophils/100 WBC (Bld) 44.6 % Normal 43.0-75.0 [facility] Comment on above: Performed By: #### C BC #### [facility] [address] [place] [address] Dr. Rich Cutler Platelet mean volume (Bld) [Entitic vol] 11.0 fL Normal 9.5-13.5 [facility] Comment on above: Performed By: #### C BC #### [facility] [address] [place] [address] Dr. Rich Cutler PLT 272 103/ul Normal 150-450 [facility] Comment on above: Performed By: #### C BC #### [facility] [address] [place] [address] Dr. Rich Cutler RBC 4.72 106/ul Normal 4.20-5.40 [facility] Comment on above: Performed By: #### C BC #### [facility] [address] [place] [address] Dr. Rich Cutler WBC 6.5 103/ul Normal 4.0-11.0 [facility] Comment on above: Performed By: #### C BC #### [facility] [address] [place] [address] Dr. Rich Cutler FREE THYROXINE INDEX T7on FTI 2.16 Normal 1.30-4.50 [facility] Comment on above: Performed By: #### L IPID, TSH, T7, CMP #### [facility] [address] [place] [address] Dr. Rich Cutler T3U 30.0 % Normal 30.0-39.0 [facility] Comment on above: Performed By: #### L IPID, TSH, T7, CMP #### [facility] [address] [address] [address] Rich Cutler T4 [Mass/Vol] 7.20 ug/dL Normal 4.80-13.90 [facility] Comment on above: Performed By: #### L IPID, TSH, T7, CMP #### [facility] [address] [address] [address] Rich Cutler GLYCOHEMOGLOBIN A1Con 2021 ADA RECOMMENDATION SEE BELOW Normal [facility] Comment on above: Result Comment: ADA RECOMMENDED LIMIT 4.0 - 6.0 ADA THERAPEUTIC TARGET < 7.0 ACTION SUGGESTED > 7.0 Performed By: #### A 1C #### [facility] [address] [place] [address] Dr. Rich Cutler Glucose [Mass/Vol] 128 mg/dL Normal [facility] Comment on above: Performed By: #### A 1C #### [facility] [address] [place] [address] Dr. Rich Cutler HbA1c (Bld) [Mass fraction] 6.1 % Normal 4.5-6.2 [facility] Comment on above: Performed By: #### A 1C #### [facility] [address] [place] [address] Dr. Rich Cutler IRONon 09-23-2022 Iron [Mass/Vol] 64.0 ug/dL Normal 50.0-170.0 [facility] Comment on above: Performed By: #### C VDTBH #### [facility] [address] [place] [address] Dr. Rich Cutler LIPID PROFILEon 09-23-2022 CHOL-HDL RATIO NORM SEE BELOW Normal [facility] Comment on above: Result Comment: 3.3 - 4.4 LOW RISK 4.4 - 7.1 AVERAGE RISK 7.1 - 11.0 MODERATE RISK >11.0 HIGH RISK Performed By: #### L IPID, TSH, T7, CMP #### [facility] [address] [place] [address] Dr. Rich Cutler Cholesterol [Mass/Vol] 237 mg/dL Critically high <=200 [facility] Comment on above: Performed By: #### L IPID, TSH, T7, CMP #### [facility] [address] [address] [address] Rich Cutler Cholesterol in HDL [Mass/Vol] 44 mg/dL Normal 40-60 [facility] Comment on above: Performed By: #### L IPID, TSH, T7, CMP #### [facility] [address] [address] [address] Rich Cutler Cholesterol in LDL [Mass/Vol] 172.2 mg/dL Normal [facility] Comment on above: Performed By: #### L IPID, TSH, T7, CMP #### [facility] [address] [place] [address] Dr. Rich Cutler Cholesterol.total/C holesterol in HDL [Mass ratio] 5.4 {ratio} Normal [facility] Comment on above: Performed By: #### L IPID, TSH, T7, CMP #### [facility] [address] [place] [address] Dr. Rich Cutler HDL NORMAL > or = 60 mg/dl - LO W CARDIOVASCULAR RISK <40 mg/dl - HIGH CARDIOVASCULAR RISK Normal [facility] Comment on above: Performed By: #### L IPID, TSH, T7, CMP #### [facility] [address] [place] [address] Dr. Rich Cutler LDL CALC NORMAL SEE BELOW Normal [facility] Comment on above: Result Comment: <100 mg/dl OPTIMAL 100 - 129 mg/dl NEAR OR ABOVE OPTIMAL 130 - 159 mg/dl BORDERLINE HIGH 160 - 189 mg/dl HIGH >190 mg/dl VERY HIGH Performed By: #### L IPID, TSH, T7, CMP #### [facility] [address] [place] [address] Dr. Rich Cutler Triglyceride [Mass/Vol] 104 mg/dL Normal <=150 [facility] Comment on above: Performed By: #### L IPID, TSH, T7, CMP #### [facility] [address] [place] [address] Dr. Rich Cutler VLDL CALC 20.8 mg/dL Normal [facility] Comment on above: Performed By: #### L IPID, TSH, T7, CMP #### [facility] [address] [place] [address] Dr. Rich Cutler PROF 14(COMP METB)on 022 Albumin [Mass/Vol] 3.5 g/dL Normal 3.4-5.0 [facility] Comment on above: Performed By: #### L IPID, TSH, T7, CMP #### [facility] [address] [place] [address] Dr. Rich Cutler Albumin/Globulin [Mass ratio] 0.9 {ratio} Normal [facility] Comment on above: Performed By: #### L IPID, TSH, T7, CMP #### [facility] [address] [place] [address] Dr. Rich Cutler ALP [Catalytic activity/Vol] 93 U/L Normal 46-116 [facility] Comment on above: Performed By: #### L IPID, TSH, T7, CMP #### [facility] [address] [place] [address] Dr. Rich Cutler ALT [Catalytic activity/Vol] 44 U/L Normal 14-59 [facility] Comment on above: Performed By: #### L IPID, TSH, T7, CMP #### [facility] [address] [place] [address] Dr. Rich Cutler Anion gap [Moles/Vol] 8.5 mmol/L Normal [facility] Comment on above: Performed By: #### L IPID, TSH, T7, CMP #### [facility] [address] [place] [address] Dr. Rich Cutler AST [Catalytic activity/Vol] 26 U/L Normal 15-37 [facility] Comment on above: Performed By: #### L IPID, TSH, T7, CMP #### [facility] [address] [place] [address] Dr. Rich Cutler Bilirubin [Mass/Vol] 0.3 mg/dL Normal 0.2-1.0 [facility] Comment on above: Performed By: #### L IPID, TSH, T7, CMP #### [facility] [address] [address] [address] Rich Cutler Calcium [Mass/Vol] 9.0 mg/dL Normal 8.5-10.1 [facility] Comment on above: Performed By: #### L IPID, TSH, T7, CMP #### [facility] [address] [address] [address] Rich Cutler Chloride [Moles/Vol] 106 mmol/L Normal 98-107 [facility] Comment on above: Performed By: #### L IPID, TSH, T7, CMP #### [facility] [address] [place] [address] Dr. Rich Cutler CO2 [Moles/Vol] 31.0 mmol/L Normal 21.0-32.0 [facility] Comment on above: Performed By: #### L IPID, TSH, T7, CMP #### [facility] [address] [place] [address] Dr. Rich Cutler Creatinine [Mass/Vol] 1.11 mg/dL Critically high 0.55-1.02 [facility] Comment on above: Performed By: #### L IPID, TSH, T7, CMP #### [facility] [address] [place] [address] Dr. Rich Cutler EGFR-AF TUNISIAN >60 Normal >=60 [facility] Comment on above: Performed By: #### L IPID, TSH, T7, CMP #### [facility] [address] [address] [address] Rich Cutler EGFR-NON AF TUNISIAN 50 mL/min/1.73m2 Critically low >=60 [facility] Comment on above: Performed By: #### L IPID, TSH, T7, CMP #### [facility] [address] [place] [address] Dr. Rich Cutler Globulin (S) [Mass/Vol] 3.7 g/dL Normal [facility] Comment on above: Performed By: #### L IPID, TSH, T7, CMP #### [facility] [address] [address] [address] Rich Cutler Glucose [Mass/Vol] 121 mg/dL Critically high 74-106 [facility] Comment on above: Performed By: #### L IPID, TSH, T7, CMP #### [facility] [address] [place] [address] Dr. Rich Cutler Potassium [Moles/Vol] 4.5 mmol/L Normal 3.5-5.1 [facility] Comment on above: Performed By: #### L IPID, TSH, T7, CMP #### [facility] [address] [place] [address] Dr. Rich Cutler Protein [Mass/Vol] 7.2 g/dL Normal 6.4-8.2 [facility] Comment on above: Performed By: #### L IPID, TSH, T7, CMP #### [facility] [address] [place] [address] Dr. Rich Cutler Sodium [Moles/Vol] 141 mmol/L Normal 136-145 [facility] Comment on above: Performed By: #### L IPID, TSH, T7, CMP #### [facility] [address] [place] [address] Dr. Rich Cutler Urea nitrogen [Mass/Vol] 16.0 mg/dL Normal 7.0-18.0 [facility] Comment on above: Performed By: #### L IPID, TSH, T7, CMP #### [facility] [address] [place] [address] Dr. Rich Cutler Urea nitrogen/Creatinine [Mass ratio] 14.4 mg/mg Normal [facility] Comment on above: Performed By: #### L IPID, TSH, T7, CMP #### [facility] [address] [place] [address] Dr. Rich Cutler TSHon 09-23-2022 TSH 3.915 uIU/mL Critically high 0.358-3.740 [facility] Comment on above: Performed By: #### L IPID, TSH, T7, CMP #### [facility] [address] [place] [address] Dr. Rich Cutler Physician Referralon 022 Physician Referral [id number] Normal [facility] Lipid Panelon 10-07-2021 Cholesterol [Mass/Vol] 205 mg/dL High 140-200 [facility] Comment on above: Result Comment: Chol less than 200 mg/dl low risk Chol 201-239 mg/dl borderline risk Chol 240 mg/dl and greater high risk Performed By: #### L IPID, [id number], TSH3 wRFLX #### [facility] [address] [id number] [facility] Cholesterol in HDL [Mass/Vol] 25 mg/dL Low 35-85 [facility] Comment on above: Result Comment: HDL CHOL ATP-III CLASSIFICATION Cardiovascular Risk HDL > or equal to 60 mg/dL LOW HDL < 40 mg/dL HIGH Performed By: #### L IPID, [id number], TSH3 wRFLX #### [facility] [address] [id number] [place] Cholesterol.total/C holesterol in HDL [Mass ratio] 8.2 {ratio} Normal <5.0 [facility] Comment on above: Performed By: #### L IPID, [id number], TSH3 wRFLX #### [facility] [address] [id number] [place] LDL Cholesterol,Calcula coby 160 mg/dL High 0-100 [facility] Comment on above: Result Comment: LDL ATP III CLASSIFICATION LDL less than 100 mg/dL Optimal LDL 100-129 mg/dL Near or above optimal LDL 130-159 mg/dL Borderline high LDL 160-189 mg/dL High LDL greater than 189 mg/dL Very high Performed By: #### L IPID, [id number], TSH3 wRFLX #### [facility] [address] [id number] [place] Triglyceride w/Reflex 100 mg/dL Normal 35-149 [facility] Comment on above: Result Comment: TRIG ATP III CLASSIFICATION TRIG less than 150 mg/dL Normal TRIG 150-199 mg/dL Borderline high TRIG 200-500 mg/dL High TRIG greater than 500 mg/dL Very high Standard traceable to the Center for Disease Conrtrol and Prevention (CDC) test method. Performed By: #### L IPID, [id number], TSH3 wRFLX #### [address] VLDL CHOLESTEROL 20 mg/dL Normal [facility] Comment on above: Performed By: #### L IPID, [id number], TSH3 wRFLX #### [facility] [address] [place] [address] Thyroid Stim Hormone w/Rflxo n 10-07-2021 Thyroid Stim Hormone w/Rflx 3.27 u[iU]/mL Normal 0.45-5.33 [facility] Comment on above: Performed By: #### L IPID, [id number], TSH3 wRFLX #### [address] Vitamin D 25 Hydroxy Totalon 10-07-2021 Vitamin D 25 Hydroxy Total 26.5 ng/mL Low 30-100 [facility] Comment on above: Result Comment: JACKELINE MIN D STATUS 25(OH)VITAMIN D RANGE (ng/mL) Deficient <20 Insufficient 20 to <30 Sufficient 30 to 100 Reference: Lanny MF,Gino NC, Dyan VALENZUELA, et al. Evaluation,treatment, and prevention of vitamin D deficiency; an Endocrine Society clinical practice guideline. JCEM. 2010; 96(7):1911-30. PERFORMED BY: [place] [id number] PATHOLOGIST [employer] SILVESTRE SCHULER M.D. Performed By: #### L IPID, [id number], TSH3 wRFLX #### [address] Vital Signs Date Time Vital Sign Value Performing Clinician Deidre gagnon 10-06-2022 15:36-0500 Blood Pressure Location Umm MARTÍNEZ [facility] [place] 10-06-2022 15:36-0500 Diastolic blood pressure 86 mm[Hg] Umm MARTÍNEZ [facility] [place] 10-06-2022 15:36-0500 Heart rate 72 /min Umm JACQUESVannesa [facility] [place] 10-06-2022 15:36-0500 Respiratory rate 16 /min Umm JACQUESVannesa [facility] [place] 10-06-2022 15:36-0500 Systolic blood pressure 126 mm[Hg] Umm JACQUESVannesa [facility] [place] Encounters Encounter Date Encounter Type Care Provider Facility Start: 07-20-2024 ambulatory JEFFREYSAMIR JUAREZSANDRA [facility] Start: 07-18-2024 ambulatory [facility] Start: 07-18-2024 End: 07-18-2024 Emergency department patient visit HERMINIA LI [facility] Start: 07-18-2024 End: 07-18-2024 ambulatory [facility] Start: 07-11-2024 Evaluation and manag ement of inpatient [facility] Start: 07-11-2024 Evaluation and manag ement of inpatient [facility] Start: 07-11-2024 Emergency department patient visit FEDERICA ANDERSON [facility] Start: 07-11-2024 End: 07-12-2024 Evaluation and management of inpatient JOSE BETANCUR [facility] Start: 07-10-2024 End: 07-10-2024 ambulatory [facility] Start: 06-30-2024 Evaluation and manag ement of inpatient [facility] Start: 06-30-2024 Evaluation and manag ement of inpatient [facility] Start: 06-29-2024 End: 07-01-2024 [facility]: 06-21-[facility]24 End: 06-21-2024 ambulatory GOMEZ JAY [facility] Start: 05-26-2024 End: 05-26-2024 ambulatory [facility] Start: 11-26-2022 Encounter for preprocedural laboratory examination DR UMM MARTÍNEZ . [facility] Start: 11-25-2022 End: 11-26-2022 ambulatory Umm MARTÍNEZ Facility:CD:[id number] Start: 11-20-2022 End: 11-21-[address] UMM MARTÍNEZ . Facility:[facility] Start: 11-20-2022 End: 11-21-2022 Encounter for preprocedural laboratory examination DR UMM MARTÍNEZ . Facility: Start: 10-06-2022 End: 10-07-2022 ambulatory Umm MARTÍNEZ Facility:[facility] Start: 10-06-2022 End: 10-06-2022 Patient encounter procedure [facility] Start: 10-02-2022 End: 10-03-[address] KENDRA MURILLO . Facility:[facility] Start: 09-30-2022 End: 10-01-[address] KENDRA MURILLO . Facility:[facility] Start: 09-28-2022 Encounter for genera l adult medical examination without abnormal findings DR KENDRA MURILLO . [facility] Start: 09-24-2022 End: 09-24-[address] [...] mRNA BNT-162b2 vax Umm NILL [facility] [place] 03-11-2021 SARS-CoV-2 (COVID-19 ) mRNA BNT-162b2 vax Umm NILL [facility] [place] Payers Date Payer Category Payer Medicaid [id number] 1965 Unknown [id number] 2.16.8 [id number] 1965 Unknown [id number] 2.16.8 [id number] 1965 Unknown [id number] 2.16.84 [id number] 1965 Unknown [id number] 2.16.84 [id number] 1965 Unknown [id number] 2.16.84 [id number] 1964 Unknown [id number] 2.16.84 [id number] 1964 Unknown [id number] 2.16.84 [id number] 1964 Unknown [id number] 2.16.84 [id number] 1964 Unknown [id number] 2.16.84 [id number] 1960 Self-pay [id number] 1960 Unknown [id number] Social History Date Type Detail Facility Start: 10-06-2022 Tobacco smoking status Ex-smoker (fi nding) [facility] [place] Tobacco smoking status [facility] [place] Sex Assigned At Female [facility] Functional Status Date Assessment Result Facility [...] Age: 59 y.o. : 1965 Account No.: [id number] Referring physician: Dr. Jarocho Saldaña Chief complaint: RML nodule HPI Aby Madrigal is a 59 y.o. female with hypertension, CAD status post PCI recently in June 2024,, cigarette smoking who is presenting to clinic via telemedicine as a new patient after being referred by Dr. Jarocho Saldaña. Patient reports recent admission to [place] ICU for hypertensive emergency. This prompted a CT of the chest which was positive for right middle lobe nodule. She then underwent PCI here at [facility] in June. She is currently on aspirin [...] PFTs on file. CTA chest 04/21/2024 at [facility]: Right middle lobe approximately 1 cm spiculated nodule appreciated Subsequent PET CT 2024 at [facility]: Right middle lobe nodule is faintly PET [...] alcohol. She reports (more content not included)... [facility] 07-18-2024 Note REASON FOR VISIT + H [...] metoprolol - CT A/P Jun 2019 in [place], [place] performed for abd pain, incidentally detected [...] Rfl: carvedilol (C (more content not included)... 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 Resides at home alone. Discharge plan is home. [facility] 07-18-2024 Note Patient sent to ED f or hypotension and dizziness/lightheadedness [facility] 07-12-2024 Note Hospital Medicine Discharge Summary Final Discharge Diagnosis: NSTEMI Admission Diagnosis: Hypokalemia [E87.6] NSTEMI (non-ST elevated myocardial infarction) (CMS/HCC) [I21.4] Hypertensive urgency [I16.0] Adenoma of left adrenal gland [D35.02] Resistant hypertension [I1A.0] Atherosclerosis of [place] coronary artery of [place] heart without angina pectoris [I25.10] Coronary artery disease involving [place] coronary artery of [place] heart with unstable angina pectoris (CMS/HCC) [I25.110] Type 2 diabetes mellitus without complication, without long-term current use of insulin ([facility]/HCC) [E11.9] Hospital course: 59yoF with CAD s/p LAD SARKIS 11 days ago who was admitted to [facility] on 07/11 for chest pain. patient initially presented to [facility] for uncomfortable feeling in her chest and was found to have elevated troponins and new ischemic changes on EKG. Infusion and cardiology was consulted transferred to [facility] for further evaluation. Initially the patient had blood pressures up to 192/65 for which home medications were restarted. Troponins at [facility] were negative and there were no [...] Center 07/18/2024 8:20 AM Feng Christie MD [facility] ENDOCR [facility] 07/20/2024 1:00 PM Richa Viramontes MD [facility] ONC [facility] 09/05/2024 1:00 PM Bijan Mitchell MD [facility] Your medication list START taking these [...] Your Medications These medications were sent to [facility]/pharmacy #[id number] [place], [place] [address] [place] [address] [address] [facility] [id number] isosorbide mononitrate ER 60 mg 24 hr [...] activity In process (more content not included)... [facility] 07-11-2024 Note 07/11/24 1817 Financial Resource [...] place to sleep or slept in a residential (including now)? N Transportation Needs In the [...] than 3 How often do you attend adventist or latter-day services? Never Do you belong to any clubs or organizations such as adventist groups, unions, fraternal or athletic groups, or [...] 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 Source hoist worker Referral Reason Psychosocial assessment Patient Information Primary Caregiver Self Accompanied by/Relationship Daughter (Rosita); Amwtivey-um-tva (Yesy) Activities of Daily Living Assistive Device Not applicable Living Arrangement (Current/Prior to Hospitalization) Private residence (Lives at home by herself) Ambulation Independent Dressing Independent Feeding Independent Behavior Oriented (A&Ox4) Communication Can write;Talks;Understands speaking;Understands Bangladeshi;Reads Income Information Income Source Unemployed (receives survivor benefits) Discharge Planning Support Systems Children;Family members (daughter, dqvpmlwq-ii-ple, son) Type of Residence Private residence Will patient need Precert for Post Acute needs? No Patient's goal for discharge Home Does the patient need discharge transport arranged? No Completed social work assessment and SDoH screening. Patient was A&Ox4 at this time. Patient's daughter, Rosita, and patient's vvosjznb-eo-wjv, Yesy, were currently present at bedside. Patient reported that she lives at home by herself and she identified her support system as her daughter, Rosita, her hbweixls-tq-cex, Yesy, and her son, Elie. Patient endorsed [...] any alcohol consumption or recreational drug use. [facility] 07-11-2024 Note Hospital Medicine History and Physical 07/11/2024 12:19 PM THE HOSPITALIST TEAM PREFERS TO USE [employer] FOR COMMUNICATION 7AM-7PM. IF I DO NOT RESPOND WITHIN 15 MINUTES, PLEASE PAGE ME/CALL THROUGH THE YARDING ENGINEER. FROM 7PM-7AM, PLEASE PAGE [phone](COVR) Chief Complaint Chief Complaint Patient presents with [...] s/p stent placement 11 days ago at [facility] presented to ER as a transfer from [facility] for NSTEMI. Patient states that last [...] Noted Hypokalemia 07/11/2024 Coronary artery disease involving [place] coronary artery of [place] heart with unstable angina pectoris ([facility] 07/11/2024 Anxiety 06/30/2024 Type 2 diabetes mellitus without complication, without long-term current use of insulin ([facility]) 06/30/2024 Chest pain 06/30/2024 Elevated troponin 06/30/2024 Hypertensive urgency 06/30/2024 Hypomagnesemia 06/30/2024 QURESHI (dyspnea on exertion) 05/26/2024 Atherosclerosis of [place] coronary artery of [place] heart without angina pectoris 05/26/2024 Hyperlipidemia 05/26/2024 Murmur, heart 05/26/2024 Sepsis ([facility]) 07/14/2019 BV (bacterial vaginosis) 10/18/2017 GERD (gastroesophageal reflux disease) 10/18/2017 Essential hypertension 10/18/2017 TIA (transient ischemic attack) 10/18/2017 NSTEMI (non-ST elevated myocardial infarction) ([facility]) 06/29/2024 Assessment and [...] for GI prophylaxis (more content not included)... [facility] 07-10-2024 Note [facility] Note [...] 06/05/2024 Chief Complaint: Dyspnea on exertion HPI: bAy Madrigal is a 59 y.o. female without [...] Take 1 tablet (more content not included)... [facility] 07-01-2024 Note Hospital Medicine Discharge Summary [...] hypertension, IBS presents a direct mission from [facility] with a chief complaint of chest [...] seen on her EKG. She went to [facility] for the symptoms. Labs were completed [...] on a heparin drip and transferred to [facility] for likely cardiac cath. # NSTEMI [...] - Continue metformin. Dear Dr. Lidia MD, [facility] is advised to follow up [...] Your Medications These medications were sent to [facility]/pharmacy #[id number] [facility], [place] - [address] [address] carvedilol 25 mg tablet cloNIDine 0.1 mg [...] days Lab Units (more content not included)... [facility] 07-01-2024 Note [facility] CARDIOLOGY INPAT IENT PROGRESS NOTE Reason for follow up: NSTEMI Subjective Aby Madrigal, a 59 y.o. female patient, is transferred from [facility] for continuity of care. Patient reports that 3 days ago, she woke up in the mid of the night with indigestion, and a feeling fullness, but no pressure like chest pain. She presented to [facility], where she was found to be [...] 0.56 06/29/2024 E (more content not included)... [facility] 06-30-2024 Note Patient: Aby antony Procedure Information Date/Time: 06/30/24 1600 Procedure: Coronary angiography (Bilateral) Location: [facility] SALES ANALYST 3 / [facility] (Cath) Providers: Brunilda Cuellar MD [...] Plan discussed with attending. Additional Equipment Requests [facility] 06-30-2024 Note 06/30/24 1446 Referral Data Referral Source hoist worker Referral Reason Follow up;Information Patient Information Primary Caregiver Self Accompanied by/Relationship daughters at bedside Activities of Daily Living Assistive Device Not applicable Living Arrangement (Current/Prior to Hospitalization) Private residence (three to four stairs) Ambulation Independent Dressing Independent Feeding Independent Behavior Oriented Communication Talks;Understands speaking;Understands Bangladeshi Discharge Planning Support Systems Children (daughters will [...] questions for social work at this time. [facility] 06-30-2024 Note 06/30/24 1431 Admission Assessment [...] Does the patient have a case management coordinator assigned to them through their insurance? No [...] to send link and activate MyChart? No [facility] 06-30-2024 Note Case was discussed w [employer] the SALVADOR on 06/29/2024. I agree with the history, physical, assessment, and plan of care. I discussed the findings and therapeutic plan. I agree with the documentation, except for any updates below. Maurice Nogueira MD [facility] 06-30-2024 Note Hospital Medicine History and Physical 06/30/2024 1:15 AM THE HOSPITALIST TEAM PREFERS TO USE [employer] FOR COMMUNICATION 7AM-7PM. IF I DO NOT RESPOND WITHIN 15 MINUTES, PLEASE PAGE ME/CALL THROUGH THE YARDING ENGINEER. FROM 7PM-7AM, PLEASE PAGE [phone](COVR) [facility] Complaint [facility] History of Present Illness Aby Madrigal is an 59 y.o. female who came from home with past medical history of anxiety, DM2, hypertension, IBS presents a direct mission from [facility] with a chief complaint of chest [...] seen on her EKG. She went to [facility] for the symptoms. Labs were completed [...] on a heparin drip and transferred to [facility] for likely cardiac cath. Review of [...] complication, without long-term current use of insulin ([facility]) 06/30/2024 Chest pain 06/30/2024 Elevated troponin 06/30/2024 Hypertensive urgency 06/30/2024 QURESHI (dyspnea on exertion) 05/26/2024 Atherosclerosis of [place] coronary artery of [place] heart without angina pectoris 05/26/2024 Hyperlipidemia 05/26/2024 Murmur, heart 05/26/2024 Sepsis ([facility]) 07/14/2019 BV (bacterial vaginosis) 10/18/2017 GERD (gastroesophageal reflux disease) 10/18/2017 Essential hypertension 10/18/2017 TIA (transient ischemic attack) 10/18/2017 Assessment and Plan Aby Madrigal is an 59 y.o. female who came from home with past medical history of anxiety, DM2, hypertension, IBS presents a direct mission from [facility] with a chief complaint of chest pain. #Chest pain #Elevated troponin Troponin 0.1, will continue to trend -Patient continues to have mild chest discomfort upon arrival -Continue heparin drip -CXR negative for acute process at OSH -EKG showing normal sinus rhythm -N.p.o. for possible right and left cardiac cath in a.m. -Patient with new diastolic dysfunction on echoc (more content not included)... [facility] 06-21-2024 Note [place] Cardiology - [facility] Subjective Aby Madrigal is a 59 y.o. year old female patient being seen for follow up [facility] ED per Dr. Murillo. She has [...] attack) QURESHI (dyspnea on exertion) Atherosclerosis of [place] coronary artery of [place] heart without angina pectoris Hyperlipidemia Murmur, heart [...] Judgment: Judgment no (more content not included)... [facility] 05-26-2024 Note [place] [facility] Note Reason for cardiology [...] PSYCH: appropriate mood, (more content not included)... [facility] 11-25-2022 Note OPERATIVE NOTE OPERATION DATE: [...] 10 years. CC: Kendra Murillo M.D. [facility] 10-11-2022 Note Chief Complaint consultation for [...] yo female with h/o htn, CAD, hyperlipidemia, SRUESH, panic d/o, referred for colorectal screening; denies [...] 1 tab(s), Oral, (more content not included)... [facility] Comment on above: Result Comment: Elec tronically Signed By: DIPESH BUCKNER, Umm Hogan\Date and Time Signed: 10/11/22 11:01 EST Evaluation + Plan note No data available for this section General [facility] [place] [facility] Discharge instructions No data available for this section General Surgery [place] Progress note No data available for this section General Surgery [place] Summary Purpose Family History No Family History Records FoundNo Family History Records FoundNo Family History Records FoundNo Family History Records Found Advance Directives No Advanced Directives Records FoundNo Advanced Directives Records FoundNo Advanced Directives Records FoundNo Advanced Directives Records Found Additional Source Comments INFORMATION SOURCE (unrecogn ized section and content) DATE CREATED AUTHOR 12/17/2021 [facility] DATE CREATED AUTHOR AUTHOR'S ORGANIZ ATION 12/16/2022 [facility] DATE CREATED AUTHOR AUTHOR'S ORGANIZ ATION 03/26/2023 [facility] DATE CREATED AUTHOR AUTHOR'S ORGANIZ ATION 07/22/2024 [facility] Patient Care team informatio n (unrecognized section and content) Personnel Name: Kendra Murillo MD Address: Address: [address] [place] [address] Personnel Name: Kendra Murillo MD Address: Address: [address] [place] [address] FOR RECORDS PERTAINING TO PATIENTS WHO ARE [...] BE BASED ON THE PRIMARY CLINICAL RECORDS. [employer] [facility]. provides no warranty or guarantee of the accuracy or completeness of information in this document.
[2024-07-24] MEDS: QUETIAPINE FUMARATE 100 MG TABLET PO ×2 (00:41→21:11)
--- NOTE | 2024-07-24 00:58 | ED.GENADUL1 ---
HPI HPI - General Adult General Chief complaint: Recheck/Abnormal Lab/Rx Stated complaint: HIGH BLOOD PRESSURE Time Seen by Provider: 07/23/24 22:03 Source: patient Mode of arrival: walk-in Limitations: no limitations History of Present Illness HPI narrative: 59-year-old female to the emergency department with chief complaint of elevated blood pressure. She reports she was recently in the hospital for hypertensive emergency. She was just discharged yesterday. She is never the primary care doctor as an outpatient today taking additional doses of clonidine but unable to get her blood pressure down below 220 systolic. Recent MA. Currently asymptomatic otherwise no. Related Data Home Medications ?Medication ?Instructions ?Recorded ?Confirmed metformin 500 mg tablet 500 mg PO BID 04/21/24 07/20/24 aspirin 81 mg capsule 81 mg PO DAILY 04/22/24 07/20/24 losartan 50 mg tablet 100 mg PO DAILY 06/29/24 07/20/24 carvedilol 25 mg tablet 25 mg PO BID 07/01/24 07/20/24 clopidogrel 75 mg tablet 75 mg PO DAILY 07/01/24 07/20/24 lorazepam 0.5 mg tablet (Ativan) 0.5 mg PO Q8H PRN anxiety 07/01/24 07/20/24 rosuvastatin 40 mg sprinkle capsule 40 mg PO DAILY 07/01/24 07/20/24 pantoprazole 40 mg tablet,delayed 40 mg PO .ACB 07/20/24 07/20/24 release (Protonix) sennosides 8.6 mg-docusate sodium 1 tab-cap PO DAILY PRN constipation 07/20/24 07/20/24 50 mg tablet (Colace 2-In-1) Previous Rx's ?Medication ?Instructions ?Recorded isosorbide mononitrate 60 mg 120 mg (2 x 60 mg) PO DAILY #60 07/21/24 tablet,extended release 24 hr tabs lorazepam 1 mg tablet (Ativan) 1 mg PO TID PRN anxiety 7 days #20 07/22/24 tabs quetiapine 100 mg tablet (Seroquel) 100 mg PO DAILY #30 tabs 07/22/24 Allergies Allergy/AdvReac Type Severity Reaction Status Date / Time amlodipine Allergy Mild Headache Verified 07/20/24 16:34 alprazolam [From Xanax] AdvReac Severe Watery Eye Verified 07/20/24 16:34 Opioid HPI Opioid Management Most Recent Opioid Data: Last Pain Scale 4 07/22/24 00:09 Last Pain Assessment 07/22/24 10:00 Last ORT Total Score 7 07/24/24 00:17 Last ORT Risk Category Moderate Risk 07/24/24 00:17 Review of Systems ROS Status of ROS 10 or more systems reviewed and unremarkable except as noted in history and below PFS PFS Medical History Hypokalemia ?E87.6 - Hypokalemia (ICD-10) Hypertension, uncontrolled ?I10 - Essential (primary) hypertension (ICD-10) Chest pain ?R07.9 - Chest pain, unspecified (ICD-10) NSTEMI (non-ST elevated myocardial infarction) ?I21.4 - Non-ST elevation (NSTEMI) myocardial infarction (ICD-10) Shortness of breath ?R06.02 - Shortness of breath (ICD-10) Headache ?R51.9 - Headache, unspecified (ICD-10) Elevated d-dimer ?R79.89 - Other specified abnormal findings of blood chemistry (ICD-10) Hypertensive emergency ?I16.1 - Hypertensive emergency (ICD-10) Uncontrolled hypertension ?I10 - Essential (primary) hypertension (ICD-10) Irritable bowel syndrome ?K58.9 - Irritable bowel syndrome without diarrhea (ICD-10) H/O nephrolithotomy with removal of calculi ?Z98.890 - Other specified postprocedural states (ICD-10) ?Z87.442 - Personal history of urinary calculi (ICD-10) Kidney stone ?N20.0 - Calculus of kidney (ICD-10) Sepsis ?A41.9 - Sepsis, unspecified organism (ICD-10) H/O angiography ?Z92.89 - Personal history of other medical treatment (ICD-10) Lung nodule ?R91.1 - Solitary pulmonary nodule (ICD-10) Anxiety ?F41.9 - Anxiety disorder, unspecified (ICD-10) HTN (hypertension) ?I10 - Essential (primary) hypertension (ICD-10) Diabetes ?E11.9 - Type 2 diabetes mellitus without complications (ICD-10) TIA (transient ischemic attack) ?G45.9 - Transient cerebral ischemic attack, unspecified (ICD-10) Surgical History (Updated 04/22/24 @ 01:20 by Stalin Kevin) History of appendectomy ?Z90.49 - Acquired absence of other specified parts of digestive tract (ICD-10) H/O tubal ligation ?Z98.51 - Tubal ligation status (ICD-10) History of cholecystectomy ?Z90.49 - Acquired absence of other specified parts of digestive tract (ICD-10) Family History (Updated 04/22/24 @ 01:15 by Stalin Kevin) Mother Family history of cancer Father MVA (motor vehicle accident) Brother Family history of stroke Social History (Updated 04/22/24 @ 01:26 by Stalin Kevin) Within the past year, how often did you have a drink containing alcohol: never Within the past year, how often did you have six or more drinks on one occasion: never Score interpretation: A score less than 3 is consistent with normal alcohol consumption. Smoking status: Former smoker Second hand tobacco smoke exposure: No Non-prescribed substance use: denies use Previous occupational history: no Known occupational exposures/hazards: No Highest level of school completed/degree received: high school graduate Do you want help with school or training: No Are you now , , , , never or living with a partner: In a typical week, how many times do you talk on the telephone with family, friends, or neighbors: 3 or more times per week How often do you get together with friends or relatives: 3 or more times per week How often do you attend episcopal or gnosticist services: never Do you belong to any clubs or organizations such as episcopal groups unions, fraternal or athletic groups, or school groups: no Total score: 1 Score interpretation: A score of less than or equal to 1 indicates the most socially isolated. Little interest or pleasure in doing things: not at all Feeling down, depressed, or hopeless: not at all Feel stressed/tense/nervous/anxious/difficulty sleeping: not at all Do you think of yourself as: straight/heterosexual Gender Identity: female Exam Narrative Exam Narrative: VITALS: I have reviewed the triage vital signs. GENERAL: Well developed, well appearing adult in no acute distress. NEURO: Alert and oriented. Moves all extremities. Face is symmetric and expressive. EYES: PERRL. No scleral icterus or conjunctival injection. No discharge. HENT: Normocephalic, atraumatic. Hearing is grossly intact. Nares grossly patent and without discharge. Mucous membranes moist. NECK: No JVD. Patient moves neck without restriction. CARDIO: Rhythm regular. Normal rate. No murmur, rub, or gallop. Pulses equal bilaterally in the upper and lower extremity. No lower extremity edema. PULM: Lungs clear to auscultation in all yousif. No wheezes, rales, or rhonchi. No conversational dyspnea. No splinting, stridor, or accessory muscle use. GI/: Abdomen is soft and non-tender. Normoactive bowel sounds. EXTREMITIES: Symmetric muscle bulk. No joint swelling. No clubbing, cyanosis, or deformity. SKIN: Warm and dry. Normal turgor. No rash or lesions appreciated. PSYCH: Mood, affect, and interaction is appropriate to the setting. Constitutional Vital Signs, click to edit/add: Last Vital Signs Temp 97.5 F L 07/24/24 00:17 Pulse 72 07/24/24 00:17 Resp 17 07/24/24 00:17 BP 208/70 H 07/24/24 00:17 Pulse Ox 95 07/24/24 00:17 O2 Del Method Room Air 07/24/24 00:17 Course Vital Signs Vital signs: Vital Signs Temperature 98.5 F 07/23/24 20:02 Pulse Rate 78 07/23/24 20:02 Respiratory Rate 18 07/23/24 20:02 Blood Pressure 224/90 H 07/23/24 20:02 Pulse Oximetry 99 07/23/24 20:02 Oxygen Delivery Method Room Air 07/23/24 20:02 Temperature 97.5 F L 07/24/24 00:17 Pulse Rate 72 07/24/24 00:17 Respiratory Rate 17 07/24/24 00:17 Blood Pressure 208/70 H 07/24/24 00:17 Pulse Oximetry 95 07/24/24 00:17 Oxygen Delivery Method Room Air 07/24/24 00:17 Medical Decision Making MDM Narrative Medical decision making narrative: 59-year-old female to the emergency department with chief complaint of elevated blood pressure. Severe hypertension, otherwise stable vitals. Currently asymptomatic otherwise. Screening lab work is unremarkable. No EKG changes. Her troponin is normal. No change in her baseline kidney function. IV hydralazine is given to decrease her blood pressure. Our goal in the short-term will be less than 200 systolic. I discussed the case with Dr. Murillo via telephone. He would like the patient admitted to hospital for further treatment of her hypertension. Case discussed with Anh on-call for hospitalist team. Patient was admitted to the hospital. Medical Records Medical records reviewed: Yes I reviewed the patient's medical records Lab Data Lab results reviewed: Yes I reviewed the patient's lab results Labs: Lab Results 07/23/24 Range/Units 21:05 WBC 6.9 (4.0-11.0) 10^3/uL RBC 4.16 L (4.20-5.40) 10^6/uL Hgb 11.4 L (12.0-16.0) g/dL Hct 35.4 L (36.0-48.0) % MCV 85.1 (81.0-99.0) fL MCH 27.4 (26.7-34.0) pg MCHC 32.2 (29.9-35.2) g/dL RDW 14.5 (11.0-15.0) % Plt Count 231 (150-450) 10^3/uL MPV 10.4 (9.5-13.5) fL Neut % (Auto) 63.7 (43.0-75.0) % Lymph % (Auto) 24.1 (20.5-60.0) % [place] % (Auto) 7.5 (1.7-12.0) % Eos % (Auto) 4.0 (0.9-7.0) % Baso % (Auto) 0.4 (0.2-2.0) % Neut # (Auto) 4.4 (1.4-6.5) 10^3/uL Lymph # (Auto) 1.7 (1.2-3.8) 10^3/uL [place] # (Auto) 0.5 (0.3-0.8) 10^3/uL Eos # (Auto) 0.3 (0.0-0.7) 10^3/uL Baso # (Auto) 0.0 (0.0-0.1) 10^3/uL Abs Immat Gran (auto) 0.02 (0.00-0.03) 10^3/uL Imm/Tot Granulo (auto) 0.3 (0.0-0.5) % Sodium 145 (136-145) mmol/L Potassium 3.2 L (3.5-5.1) mmol/L Chloride 109 H (98-107) mmol/L Carbon Dioxide 28.7 (21.0-32.0) mmol/L Anion Gap 10.5 BUN 12.0 (7.0-18.0) mg/dL Creatinine 1.28 H (0.55-1.02) mg/dL Est GFR ( Amer) 52 L (>=60) Est GFR (Non-Af Amer) 43 L (>=60) BUN/Creatinine Ratio 9.4 Glucose 139 H (74-106) mg/dL Calcium 9.0 (8.5-10.1) mg/dL Troponin I High Sens 12.8 (4.0-51.3) pg/mL ECG Data Attestation: I personally reviewed and interpreted this ECG as follows: (Normal sinus rhythm. No STEMI. Normal QTc) Critical Care Time Critical Care Time Critical Care Time: Yes Total Critical Care Time: 31 Attestation: Critical Care Procedure Note Authorized and Performed by: Elie Ortiz DO Total critical care time: 31 min Due to a high probability of clinically significant, life threatening deterioration, the patient required my highest level of preparedness to intervene emergently and I personally spent this critical care time directly and personally managing the patient. This critical care time included obtaining a history; examining the patient; pulse oximetry; ordering and review of studies; arranging urgent treatment with development of a management plan; evaluation of patient's response to treatment; frequent reassessment; and, discussions with other providers. This critical care time was performed to assess and manage the high probability of imminent, life-threatening deterioration that could result in multi-organ failure. It was exclusive of separately billable procedures and treating other patients and teaching time. Please see MDM section and the rest of the note for further information on patient assessment and treatment. Discharge Plan Discharge Chief Complaint: Recheck/Abnormal Lab/Rx Clinical Impression: Hypertensive urgency Patient Disposition: Admitted As Inpatient Time of Disposition Decision: 00:59 Condition: Good Discharge Date/Time: 07/24/24 00:23
[2024-07-24] MEDS: HYDRALAZINE HCL 20 MG/ML VIAL 5 MG IVP ×2 (02:15→17:45)
[2024-07-24] MEDS: OMEPRAZOLE 40 MG CAPSULE.DR PO (06:02)
[2024-07-24 07:00] LABS: Alanine Aminotransferase 42 U/L (14-59); Albumin Level 2.9 g/dL (3.4-5.0); Alkaline Phosphatase 73 U/L (46-116); Anion Gap 15.3; Aspartate Amino Transferase 24 U/L (15-37); BUN Creatinine Ratio 10.8; Bilirubin Total 0.4 mg/dL (0.2-1.0); Carbon Dioxide 22.8 mmol/L (21.0-32.0); Chloride 110 mmol/L (98-107); Estimated GFR (African America >60 (>=60); Estimated GFR (Non-African Ame 55 (>=60); Globulin 2.9 g/dL; Glucose 111 mg/dL (74-106); Magnesium 1.9 mg/dL (1.8-2.4); Phosphorus 3.6 mg/dL (2.6-4.7); Potassium 3.1 mmol/L (3.5-5.1); Sodium 145 mmol/L (136-145); Total Protein 5.8 g/dL (6.4-8.2)
[2024-07-24 07:01] LABS: Basophils Percent Auto 0.6 % (0.2-2.0); Eosinophils Absolute Auto 0.3 10^3/uL (0.0-0.7); Eosinophils Percent Auto 4.5 % (0.9-7.0); Hemoglobin 10.8 g/dL (12.0-16.0); Immature Granulocytes Abs Auto 0.01 10^3/uL (0.00-0.03); Immature Granulocytes Pct Auto 0.2 % (0.0-0.5); Lymphocytes Absolute Auto 2.2 10^3/uL (1.2-3.8); Lymphocytes Percent Auto 33.2 % (20.5-60.0); Mean Corpuscular HGB Conc 31.8 g/dL (29.9-35.2); Mean Corpuscular Hemoglobin 27.1 pg (26.7-34.0); Mean Corpuscular Volume 85.2 fL (81.0-99.0); Mean Platelet Volume 9.8 fL (9.5-13.5); Monocytes Absolute Auto 0.5 10^3/uL (0.3-0.8); Monocytes Percent Auto 7.2 % (1.7-12.0); Neutrophils Absolute Auto 3.5 10^3/uL (1.4-6.5); Neutrophils Percent Auto 54.3 % (43.0-75.0); Platelet Count 204 10^3/uL (150-450); Red Blood Count 3.99 10^6/uL (4.20-5.40); Red Cell Distribution Width 14.5 % (11.0-15.0); White Blood Count 6.5 10^3/uL (4.0-11.0)
[2024-07-24 07:24] LABS: INR 0.95; Partial Thromboplastin Time 27.1 sec (22.3-36.2); Prothrombin Time 10.1 sec (9.0-11.6)
[2024-07-24] MEDS: CLOPIDOGREL BISULFATE 75 MG TABLET PO (08:21)
[2024-07-24] MEDS: HYDRALAZINE HCL 25 MG TABLET PO ×3 (08:21→21:11)
[2024-07-24] MEDS: ISOSORBIDE MONONITRATE 60 MG TAB.ER.24H 120 MG PO (08:21)
[2024-07-24] MEDS: CARVEDILOL 25 MG TABLET PO ×2 (08:21→20:08)
[2024-07-24] MEDS: LOSARTAN POTASSIUM 50 MG TABLET 100 MG PO (08:21)
[2024-07-24] MEDS: METFORMIN HCL 500 MG TABLET PO ×2 (08:21→20:08)
[2024-07-24] MEDS: ASPIRIN 81 MG TABLET.DR PO (08:21)
[2024-07-24] MEDS: POTASSIUM CHLORIDE 40 MEQ in 0.9 % SODIUM CHLORIDE 250 ML 67.5 MEQ IV (09:33)
[2024-07-24] MEDS: ONDANSETRON PF 4 MG/2 ML VIAL IV (10:09)
--- NOTE | 2024-07-24 10:27 | P.HP_ITS ---
HPI H&P: HPI History of Present Illness Chief complaint: HIGH BLOOD PRESSURE HTN URGENCY Narrative: Patient with a recent admission and discharge. Blood pressure fairly stable at the time of discharge. With no symptoms. Received message from the family yesterday and discussed try to control her blood pressure at home but that had failed. We tried adding clonidine. It worked for about an hour but then blood pressure became 230s over 140s and she presented to the emergency room. In the emergency room when she had her significant elevation in her blood pressure she did have headache and chest tightness. Patient recent history of PTCA. EKG unremarkable. High-sensitivity troponin and BNP normal. When I saw patient up on the medical surgical floor, she was resting comfortably in bed, her blood pressure is much improved this morning compared to yesterday but still with significant elevation. Denies chest pain or shortness of breath currently Opioid HPI Opioid Management Most Recent Pain and Opioid Data: Last Pain Scale 4 07/22/24 00:09 Last Pain Assessment 07/24/24 09:36 Last ORT Total Score 7 07/24/24 00:17 Last ORT Risk Category Moderate Risk 07/24/24 00:17 PFSH [facility] Medical History (Updated 07/24/24 @ 01:01 by Elie Ortiz MD) Hypertensive urgency ?I16.0 - Hypertensive urgency (ICD-10) Chest pain ?R07.9 - Chest pain, unspecified (ICD-10) Anxiety ?F41.9 - Anxiety disorder, unspecified (ICD-10) HTN (hypertension) ?I10 - Essential (primary) hypertension (ICD-10) Hypokalemia ?E87.6 - Hypokalemia (ICD-10) Hypertension, uncontrolled ?I10 - Essential (primary) hypertension (ICD-10) Chest pain ?R07.9 - Chest pain, unspecified (ICD-10) NSTEMI (non-ST elevated myocardial infarction) ?I21.4 - Non-ST elevation (NSTEMI) myocardial infarction (ICD-10) Shortness of breath ?R06.02 - Shortness of breath (ICD-10) Headache ?R51.9 - Headache, unspecified (ICD-10) Elevated d-dimer ?R79.89 - Other specified abnormal findings of blood chemistry (ICD-10) Hypertensive emergency ?I16.1 - Hypertensive emergency (ICD-10) Uncontrolled hypertension ?I10 - Essential (primary) hypertension (ICD-10) Irritable bowel syndrome ?K58.9 - Irritable bowel syndrome without diarrhea (ICD-10) H/O nephrolithotomy with removal of calculi ?Z98.890 - Other specified postprocedural states (ICD-10) ?Z87.442 - Personal history of urinary calculi (ICD-10) Kidney stone ?N20.0 - Calculus of kidney (ICD-10) Sepsis ?A41.9 - Sepsis, unspecified organism (ICD-10) H/O angiography ?Z92.89 - Personal history of other medical treatment (ICD-10) Lung nodule ?R91.1 - Solitary pulmonary nodule (ICD-10) Anxiety ?F41.9 - Anxiety disorder, unspecified (ICD-10) HTN (hypertension) ?I10 - Essential (primary) hypertension (ICD-10) Diabetes ?E11.9 - Type 2 diabetes mellitus without complications (ICD-10) TIA (transient ischemic attack) ?G45.9 - Transient cerebral ischemic attack, unspecified (ICD-10) Surgical History (Updated 07/24/24 @ 01:23 by Mamta Gauthier RN) H/O heart artery stent ?Z95.5 - Presence of coronary angioplasty implant and graft (ICD-10) History of appendectomy ?Z90.49 - Acquired absence of other specified parts of digestive tract (ICD- 10) H/O tubal ligation ?Z98.51 - Tubal ligation status (ICD-10) History of cholecystectomy ?Z90.49 - Acquired absence of other specified parts of digestive tract (ICD- 10) Family History (Updated 04/22/24 @ 01:15 by Stalin Kevin) Mother Family history of cancer Father MVA (motor vehicle accident) Brother Family history of stroke Social History (Updated 04/22/24 @ 01:26 by Stalin Kevin) Within the past year, how often did you have a drink containing alcohol: never Within the past year, how often did you have six or more drinks on one occasion: never Score interpretation: A score less than 3 is consistent with normal alcohol consumption. Smoking status: Former smoker Second hand tobacco smoke exposure: No Non-prescribed substance use: denies use Previous occupational history: no Known occupational exposures/hazards: No Highest level of school completed/degree received: high school graduate Do you want help with school or training: No Are you now , , , , never or living with a partner: In a typical week, how many times do you talk on the telephone with family, friends, or neighbors: 3 or more times per week How often do you get together with friends or relatives: 3 or more times per week How often do you attend evangelical or adventist services: never Do you belong to any clubs or organizations such as evangelical groups unions, [employer] or athletic groups, or school groups: no Total score: 1 Score interpretation: A score of less than or equal to 1 indicates the most socially isolated. Little interest or pleasure in doing things: not at all Feeling down, depressed, or hopeless: not at all Feel stressed/tense/nervous/anxious/difficulty sleeping: not at all Do you think of yourself as: straight/heterosexual Gender Identity: female Meds Home Medications and Allergies Home Medications ?Medication ?Instructions ?Recorded ?Confirmed ?Type metformin 500 mg tablet 500 mg PO BID 04/21/24 07/24/24 History aspirin 81 mg capsule 81 mg PO DAILY 04/22/24 07/24/24 History carvedilol 25 mg tablet 25 mg PO BID 07/01/24 07/24/24 History clopidogrel 75 mg tablet 75 mg PO DAILY 07/01/24 07/24/24 History pantoprazole 40 mg tablet,delayed 40 mg PO .ACB 07/20/24 07/24/24 History release (Protonix) sennosides 8.6 mg-docusate sodium 1 tab-cap PO DAILY PRN constipation 07/20/24 07/24/24 History 50 mg tablet (Colace 2-In-1) isosorbide mononitrate 60 mg 120 mg (2 x 60 mg) PO DAILY #60 07/21/24 07/24/24 Rx tablet,extended release 24 hr tabs lorazepam 1 mg tablet (Ativan) 1 mg PO TID PRN anxiety 7 days #20 07/22/24 07/24/24 Rx tabs losartan 100 mg tablet 100 mg PO DAILY 07/24/24 07/24/24 History quetiapine 100 mg tablet (Seroquel) 100 mg PO .QHS 07/24/24 07/24/24 History rosuvastatin 40 mg tablet 40 mg PO DAILY 07/24/24 07/24/24 History Allergies Allergy/AdvReac Type Severity Reaction Status Date / Time amlodipine Allergy Mild Headache Verified 07/20/24 16:34 alprazolam [From Xanax] AdvReac Severe Watery Eye Verified 07/20/24 16:34 Exam Constitutional Vital Signs, click to edit/add: Last Vital Signs Temp 97.8 F 07/24/24 08:02 Pulse 69 07/24/24 09:54 Resp 18 07/24/24 08:02 BP 201/71 H 07/24/24 08:21 Pulse Ox 94 L 07/24/24 08:21 O2 Del Method Room Air 07/24/24 08:21 Documenting provider has reviewed patient's vital signs: yes Common normals: no apparent distress HENMT Common normals: normocephalic Chest Common normals: inspection of chest normal Respiratory Common normals: normal respiratory effort and no retractions Cardio Common normals: regular rate, regular rhythm and no murmurs GI Common normals: Normal to inspection, nondistended, normoactive bowel sounds present Extremity Common normals: normal to inspection, full ROM and no clubbing, cyanosis or edema Neuro Common normals: oriented x3 and CN's II-XII intact bilaterally Results Labs Labs: Short CBC 07/23/24 07/24/24 Range/Units 21:05 06:56 WBC 6.9 6.5 (4.0-11.0) 10^3/uL Hgb 11.4 L 10.8 L (12.0-16.0) g/dL Hct 35.4 L 34.0 L (36.0-48.0) % Plt Count 231 204 (150-450) 10^3/uL [facility] 07/23/24 07/24/24 21:05 06:05 Sodium 145 145 Potassium 3.2 L 3.1 L Chloride 109 H 110 H Carbon Dioxide 28.7 22.8 BUN 12.0 11.0 Creatinine 1.28 H 1.02 Glucose 139 H 111 H Calcium 9.0 9.0 Liver Function 07/24/24 Range/Units 06:05 Total Bilirubin 0.4 (0.2-1.0) mg/dL AST 24 (15-37) U/L ALT 42 (14-59) U/L Alkaline Phosphatase 73 (46-116) U/L Albumin 2.9 L (3.4-5.0) g/dL Assessment and Plan Assessment and Plan (1) Hypertensive urgency: (2) HTN (hypertension): Qualifiers: Hypertension type: unspecified Qualified Code(s): I10 - Essential (primary) hypertension (3) Chest pain: Qualifiers: Chest pain type: unspecified Qualified Code(s): R07.9 - Chest pain, unspecified (4) Shortness of breath: Plan Admission findings: Significant elevation in blood pressure in the emergency room 234/87 with chest pain and shortness of breath. Mild headache. Resulting in hypertensive urgency. Uncontrolled hypertension with hypertensive urgency-continue to adjust medications, will change her back to the Imdur 120 once a day, add hydralazine 50 mg twice a day maintain beta-manuel and ARB Possible renal artery stenosis induced hypertension-hydralazine with vasodilating effect should improve, already on an ARB iron deficiency anemia- monitor daily Down somewhat today Iron deficiency anemia-Down somewhat today continue to monitor Hypokalemia-supplement IV Acute kidney injury-admission creatinine of 1.28, baseline creatinine 1.02 -to be 125.5% above baseline-improved today, likely elevated secondary to the hypertensive urgency Admission findings: Patient with hypertensive urgency-blood pressure still significantly elevated today. Will continue to adjust medications. Medically necessary treatment will span 2 midnights. Inpatient status.
[2024-07-24 11:54] LABS: Glucometer 130 mg/dL (74-106)
[2024-07-24] MEDS: ROSUVASTATIN 40 MG 40 EACH PO (15:45)
[2024-07-24 16:38] LABS: Glucometer 129 mg/dL (74-106)
[2024-07-24] MEDS: ACETAMINOPHEN 500 MG TABLET 1000 MG PO ×2 (17:45→23:32)
[2024-07-24 19:19] LABS: Glucometer 119 mg/dL (74-106)
[2024-07-24] MEDS: LORAZEPAM 1 MG TABLET PO (22:32)
[2024-07-25] VITALS (24 sets, daily range): BP systolic 131–180; BP diastolic 58–75; PULSE 65–109; TEMP 36.4–36.8; O2SAT 93–98
[2024-07-25] MEDS: HYDRALAZINE HCL 25 MG TABLET PO ×3 (05:32→17:46)
[2024-07-25] MEDS: OMEPRAZOLE 40 MG CAPSULE.DR PO (05:32)
--- NOTE | 2024-07-25 07:42 | P.PN_ITS ---
Progress Note: Subjective Subjective Interval history: Patient denies headache chest pain or shortness of breath this morning. Her blood pressure was significantly elevated last night requiring multiple doses of IV hydralazine in the last 24 hours Exam Constitutional Vital Signs, click to edit/add: Last Vital Signs Temp 97.6 F 07/25/24 07:29 Pulse 82 07/25/24 07:29 Resp 18 07/25/24 07:29 BP 131/61 07/25/24 07:29 Pulse Ox 96 07/25/24 07:29 O2 Del Method Room Air 07/25/24 07:29 O2 Flow Rate 2 07/25/24 04:12 Documenting provider has reviewed patient's vital signs: yes Common normals: no apparent distress HENMT Common normals: normocephalic Chest Common normals: inspection of chest normal Respiratory Common normals: normal respiratory effort and no retractions Cardio Common normals: regular rate, regular rhythm and no murmurs GI Common normals: Normal to inspection, nondistended, normoactive bowel sounds present Extremity Common normals: normal to inspection and full ROM; clubbing, cyanosis or edema (Trace to 1+ edema, new) Neuro Common normals: oriented x3 and CN's II-XII intact bilaterally Progress Note: A&P Assessment and Plan (1) Hypertensive urgency: (2) HTN (hypertension): Qualifiers: Hypertension type: unspecified Qualified Code(s): I10 - Essential (primary) hypertension (3) Chest pain: Qualifiers: Chest pain type: unspecified Qualified Code(s): R07.9 - Chest pain, unspecified (4) Shortness of breath: Plan Admission findings: Significant elevation in blood pressure in the emergency room 234/87 with chest pain and shortness of breath. Mild headache. Resulting in hypertensive urgency. Uncontrolled hypertension with hypertensive urgency-unable to use calcium channel manuel secondary to side effects. Continue with the current dosing but adding low-dose hydrochlorothiazide, she does have some mild edema today. Consult to cardiology. Possible renal artery stenosis induced hypertension-hydralazine with vasodilating effect should improve, already on an ARB-unable to use calcium channel manuel secondary to side effects iron deficiency anemia-monitor daily-Labs pending Hypokalemia--Labs pending on oral supplementation Acute kidney injury-admission creatinine of 1.28, baseline creatinine 1.02 -to be 125.5% above baseline-improved today, likely elevated secondary to the hypertensive urgency-check on labs later today Admission findings: Patient with hypertensive urgency-blood pressure still significantly elevated today. Will continue to adjust medications. Medically necessary treatment will span 2 midnights. Inpatient status.
[2024-07-25 07:44] LABS: Glucometer 100 mg/dL (74-106)
--- NOTE | 2024-07-25 07:44 | CM.NOTE ---
Rounds made with Dr. Murillo, continue to adjust medications for BP control. No discharge today.
[2024-07-25] MEDS: LOSARTAN POTASSIUM 50 MG TABLET 100 MG PO (09:02)
[2024-07-25] MEDS: ISOSORBIDE MONONITRATE 60 MG TAB.ER.24H 120 MG PO (09:02)
[2024-07-25] MEDS: METFORMIN HCL 500 MG TABLET PO ×2 (09:02→21:11)
[2024-07-25] MEDS: HYDROCHLOROTHIAZIDE 25 MG TABLET PO (09:02)
[2024-07-25] MEDS: CARVEDILOL 25 MG TABLET PO ×2 (09:02→21:12)
[2024-07-25] MEDS: POTASSIUM CHLORIDE 10 MEQ ER TABLET 20 MEQ PO ×2 (09:02→21:12)
[2024-07-25] MEDS: ASPIRIN 81 MG TABLET.DR PO (09:02)
[2024-07-25] MEDS: CLOPIDOGREL BISULFATE 75 MG TABLET PO (09:02)
[2024-07-25] MEDS: ROSUVASTATIN 40 MG 40 EACH PO (09:03)
[2024-07-25 09:11] LABS: Anion Gap 15.1; BUN Creatinine Ratio 10.6; Calcium 9.1 mg/dL (8.5-10.1); Carbon Dioxide 25.2 mmol/L (21.0-32.0); Chloride 109 mmol/L (98-107); Estimated GFR (African America 54 (>=60); Estimated GFR (Non-African Ame 45 (>=60); Glucose 108 mg/dL (74-106); Potassium 3.3 mmol/L (3.5-5.1); Sodium 146 mmol/L (136-145)
[2024-07-25 11:41] LABS: Glucometer 146 mg/dL (74-106)
--- NOTE | 2024-07-25 12:50 | P.CACN_ITS ---
History of Present Illness History of Present Illness Consult date: 07/25/24 Requesting physician: Carlito Murillo Consult reason: hypertension Chief complaint: HIGH BLOOD PRESSURE HTN URGENCY Narrative: Per admit H&P: Patient with a recent admission and discharge. Blood pressure fairly stable at the time of discharge. With no symptoms. Received message from the family yesterday and discussed try to control her blood pressure at home but that had failed. We tried adding clonidine. It worked for about an hour but then blood pressure became 230s over 140s and she presented to the emergency room. In the emergency room when she had her significant elevation in her blood pressure she did have headache and chest tightness. Patient recent history of PTCA. EKG unremarkable. High-sensitivity troponin and BNP normal. When I saw patient up on the medical surgical floor, she was resting comfortably in bed, her blood pressure is much improved this morning compared to yesterday but still with significant elevation. Denies chest pain or shortness of breath currently Currently, she is symptoms free She takes all of her prescribed medications regularly. She drinks 2 sodas daily. No other caffeine. She has sleep apnea. Not clear if she is using her CPAP She has been found to have renal artery stenosis and an adrenal mass and is seeing endocrinology. Her BP is currently in the 130s systolic. Review of Systems ROS Status of ROS 10 or more systems reviewed and unremark able except as noted in history and below [facility] Medical History (Updated 07/25/24 @ 12:55 by Brunilda Cuellar MD) Hypertensive urgency ?I16.0 - Hypertensive urgency (ICD-10) Chest pain ?R07.9 - Chest pain, unspecified (ICD-10) Anxiety ?F41.9 - Anxiety disorder, unspecified (ICD-10) HTN (hypertension) ?I10 - Essential (primary) hypertension (ICD-10) Hypokalemia ?E87.6 - Hypokalemia (ICD-10) Hypertension, uncontrolled ?I10 - Essential (primary) hypertension (ICD-10) Chest pain ?R07.9 - Chest pain, unspecified (ICD-10) NSTEMI (non-ST elevated myocardial infarction) ?I21.4 - Non-ST elevation (NSTEMI) myocardial infarction (ICD-10) Shortness of breath ?R06.02 - Shortness of breath (ICD-10) Headache ?R51.9 - Headache, unspecified (ICD-10) Elevated d-dimer ?R79.89 - Other specified abnormal findings of blood chemistry (ICD-10) Hypertensive emergency ?I16.1 - Hypertensive emergency (ICD-10) Uncontrolled hypertension ?I10 - Essential (primary) hypertension (ICD-10) Irritable bowel syndrome ?K58.9 - Irritable bowel syndrome without diarrhea (ICD-10) H/O nephrolithotomy with removal of calculi ?Z98.890 - Other specified postprocedural states (ICD-10) ?Z87.442 - Personal history of urinary calculi (ICD-10) Kidney stone ?N20.0 - Calculus of kidney (ICD-10) Sepsis ?A41.9 - Sepsis, unspecified organism (ICD-10) H/O angiography ?Z92.89 - Personal history of other medical treatment (ICD-10) Lung nodule ?R91.1 - Solitary pulmonary nodule (ICD-10) Anxiety ?F41.9 - Anxiety disorder, unspecified (ICD-10) HTN (hypertension) ?I10 - Essential (primary) hypertension (ICD-10) Diabetes ?E11.9 - Type 2 diabetes mellitus without complications (ICD-10) TIA (transient ischemic attack) ?G45.9 - Transient cerebral ischemic attack, unspecified (ICD-10) Surgical History (Updated 07/24/24 @ 01:23 by Mamta Gauthier RN) H/O heart artery stent ?Z95.5 - Presence of coronary angioplasty implant and graft (ICD-10) History of appendectomy ?Z90.49 - Acquired absence of other specified parts of digestive tract (ICD- 10) H/O tubal ligation ?Z98.51 - Tubal ligation status (ICD-10) History of cholecystectomy ?Z90.49 - Acquired absence of other specified parts of digestive tract (ICD- 10) Family History (Updated 04/22/24 @ 01:15 by Stalin Kevin) Mother Family history of cancer Father MVA (motor vehicle accident) Brother Family history of stroke Social History (Updated 04/22/24 @ 01:26 by Stalin Kevin) Within the past year, how often did you have a drink containing alcohol: never Within the past year, how often did you have six or more drinks on one occasion: never Score interpretation: A score less than 3 is consistent with normal alcohol consumption. Smoking status: Former smoker Second hand tobacco smoke exposure: No Non-prescribed substance use: denies use Previous occupational history: no Known occupational exposures/hazards: No Highest level of school completed/degree received: high school graduate Do you want help with school or training: No Are you now , , , , never or living with a partner: In a typical week, how many times do you talk on the telephone with family, friends, or neighbors: 3 or more times per week How often do you get together with friends or relatives: 3 or more times per week How often do you attend worship or jain services: never Do you belong to any clubs or organizations such as worship groups unions, [employer] or athletic groups, or school groups: no Total score: 1 Score interpretation: A score of less than or equal to 1 indicates the most socially isolated. Little interest or pleasure in doing things: not at all Feeling down, depressed, or hopeless: not at all Feel stressed/tense/nervous/anxious/difficulty sleeping: not at all Do you think of yourself as: straight/heterosexual Gender Identity: female Meds Home Medications and Allergies Home Medications ?Medication ?Instructions ?Recorded ?Confirmed ?Type metformin 500 mg tablet 500 mg PO BID 04/21/24 07/24/24 History aspirin 81 mg capsule 81 mg PO DAILY 04/22/24 07/24/24 History carvedilol 25 mg tablet 25 mg PO BID 07/01/24 07/24/24 History clopidogrel 75 mg tablet 75 mg PO DAILY 07/01/24 07/24/24 History pantoprazole 40 mg tablet,delayed 40 mg PO .ACB 07/20/24 07/24/24 History release (Protonix) sennosides 8.6 mg-docusate sodium 1 tab-cap PO DAILY PRN constipation 07/20/24 07/24/24 History 50 mg tablet (Colace 2-In-1) isosorbide mononitrate 60 mg 120 mg (2 x 60 mg) PO DAILY #60 07/21/24 07/24/24 Rx tablet,extended release 24 hr tabs lorazepam 1 mg tablet (Ativan) 1 mg PO TID PRN anxiety 7 days #20 07/22/24 07/24/24 Rx tabs losartan 100 mg tablet 100 mg PO DAILY 07/24/24 07/24/24 History quetiapine 100 mg tablet (Seroquel) 100 mg PO .QHS 07/24/24 07/24/24 History rosuvastatin 40 mg tablet 40 mg PO DAILY 07/24/24 07/24/24 History Allergies Allergy/AdvReac Type Severity Reaction Status Date / Time amlodipine Allergy Mild Headache Verified 07/20/24 16:34 alprazolam [From Xanax] AdvReac Severe Watery Eye Verified 07/20/24 16:34 Exam Constitutional Vital Signs, click to edit/add: Last Vital Signs Temp 98.3 F 07/25/24 11:38 Pulse 87 07/25/24 11:59 Resp 16 07/25/24 11:38 BP 133/67 07/25/24 11:38 Pulse Ox 93 L 07/25/24 11:38 O2 Del Method Room Air 07/25/24 11:38 O2 Flow Rate 2 07/25/24 04:12 Documenting provider has reviewed patient's vital signs: yes Common normals: no apparent distress General appearance: cooperative, comfortable and well developed Nutritional appearance: obese HENMT Common normals: normocephalic Head and scalp: normal to inspection Face and sinus: normal facial exam Nose: external nose normal External ear: external ears normal Eye Common normals: PERRL and EOMs intact bilaterally General eye: normal appearance of both eyes Neck & C-Spine Common normals: full ROM General: normal visual inspection Chest Common normals: inspection of chest normal Respiratory Common normals: normal respiratory effort Effort & inspection: able to speak in complete sentences Auscultation: clear to auscultation bilaterally Cardio Common normals: no JVD Rate: regular rate Rhythm: regular rhythm Heart sounds: S1 normal and S2 normal GI Common normals: Normal to inspection, nondistended, normoactive bowel sounds present Neuro Sensorium/orientation: awake, alert and oriented to person Results Labs and Meds Lab results: Comprehensive Metabolic Panel 07/25/24 Range/Units 08:37 Sodium 146 H (136-145) mmol/L Potassium 3.3 L (3.5-5.1) mmol/L Chloride 109 H (98-107) mmol/L Carbon Dioxide 25.2 (21.0-32.0) mmol/L BUN 13.0 (7.0-18.0) mg/dL Creatinine 1.23 H (0.55-1.02) mg/dL Glucose 108 H (74-106) mg/dL Calcium 9.1 (8.5-10.1) mg/dL Intake and Output 07/24/24 07/25/24 07/25/24 23:59 07:59 15:59 Intake Total 500 / 1240 120 / 120 Output Total 1250 / 1250 Balance 500 / 290 -1130 / -1130 Intake: Oral 500 / 970 120 / 120 Output: Urine 1250 / 1250 Imaging and Cardiology ECG results: report reviewed ( [facility] Test Date: 2024-07-23 Pat Name: MILAN RASMUSSEN Department: Room: - 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: : ) Assessment and Plan Assessment and Plan (1) Hypertensive urgency: (2) HTN (hypertension): Qualifiers: Hypertension type: unspecified Qualified Code(s): I10 - Essential (primary) hypertension (3) Chest pain: Qualifiers: Chest pain type: unspecified Qualified Code(s): R07.9 - Chest pain, unspecified (4) Shortness of breath: (5) Hypokalemia: (6) Diabetes: Qualifiers: Diabetes mellitus type: type 2 Diabetes mellitus long term care pharmacist insulin use: without mcfp use Diabetes mellitus complication status: without complication Qualified Code(s): E11.9 - Type 2 diabetes mellitus without complications (7) H/O heart artery stent: (8) CAD (coronary artery disease): Plan 1. Continue medical rx for CAD including DAPT, statin, BBlocker and a RAAS inhibitor 2. Given DM and CAD, she should be on an SGLT2i or GLP-1 receptor agonist 3. Would add spironolactone 25 mg daily for BP control and evidence of hypokalemia 4. Follow up with endocrinology for adrenal mass 5. Treat non-cardiac comorbidities as appropriate; particularly SURESH, obesity, any anxiety, pain etc... Thank you for the consult Brunilda Cuellar MD [facility]
[2024-07-25] MEDS: ACETAMINOPHEN 500 MG TABLET 1000 MG PO ×2 (13:24→22:28)
[2024-07-25 15:21] LABS: Glucometer 92 mg/dL (74-106)
[2024-07-25 20:22] LABS: Glucometer 113 mg/dL (74-106)
[2024-07-25] MEDS: LORAZEPAM 1 MG TABLET PO (21:11)
[2024-07-25] MEDS: TEMAZEPAM 15 MG CAPSULE PO (21:11)
[2024-07-25] MEDS: QUETIAPINE FUMARATE 100 MG TABLET PO (21:12)
[2024-07-25] MEDS: HYDRALAZINE HCL 25 MG TABLET 50 MG PO (21:12)
[2024-07-26] VITALS (31 sets, daily range): BP systolic 93–214; BP diastolic 57–78; PULSE 71–90; TEMP 36.6–37; O2SAT 93–97
[2024-07-26 05:36] LABS: Basophils Absolute Auto 0.1 10^3/uL (0.0-0.1); Basophils Percent Auto 0.7 % (0.2-2.0); Eosinophils Absolute Auto 0.3 10^3/uL (0.0-0.7); Eosinophils Percent Auto 4.6 % (0.9-7.0); Hematocrit 34.7 % (36.0-48.0); Hemoglobin 11.2 g/dL (12.0-16.0); Immature Granulocytes Abs Auto 0.01 10^3/uL (0.00-0.03); Immature Granulocytes Pct Auto 0.1 % (0.0-0.5); Lymphocytes Absolute Auto 2.2 10^3/uL (1.2-3.8); Lymphocytes Percent Auto 30.1 % (20.5-60.0); Mean Corpuscular HGB Conc 32.3 g/dL (29.9-35.2); Mean Corpuscular Hemoglobin 27.4 pg (26.7-34.0); Mean Corpuscular Volume 84.8 fL (81.0-99.0); Mean Platelet Volume 10.3 fL (9.5-13.5); Monocytes Absolute Auto 0.5 10^3/uL (0.3-0.8); Monocytes Percent Auto 6.6 % (1.7-12.0); Neutrophils Absolute Auto 4.2 10^3/uL (1.4-6.5); Neutrophils Percent Auto 57.9 % (43.0-75.0); Platelet Count 223 10^3/uL (150-450); Red Blood Count 4.09 10^6/uL (4.20-5.40); Red Cell Distribution Width 14.8 % (11.0-15.0); White Blood Count 7.2 10^3/uL (4.0-11.0)
[2024-07-26] MEDS: OMEPRAZOLE 40 MG CAPSULE.DR PO (05:37)
[2024-07-26] MEDS: HYDRALAZINE HCL 25 MG TABLET 50 MG PO ×2 (05:37→21:08)
[2024-07-26 05:44] LABS: Anion Gap 15.2; BUN Creatinine Ratio 11.3; Calcium 9.1 mg/dL (8.5-10.1); Carbon Dioxide 25.3 mmol/L (21.0-32.0); Chloride 107 mmol/L (98-107); Estimated GFR (African America 53 (>=60); Estimated GFR (Non-African Ame 44 (>=60); Glucose 101 mg/dL (74-106); Potassium 3.5 mmol/L (3.5-5.1); Sodium 144 mmol/L (136-145)
--- NOTE | 2024-07-26 08:12 | P.DS_ITS ---
DS: Providers Provider Date of admission: 07/24/24 10:58 Primary care physician: Carlito Murillo MD Consults: 07/25/24 06:54 Consult to Cardiology Routine Reason for consultation: HTN urgency , renal art stenosis Has provider been notified: No DS: Diagnosis Discharge Diagnosis (1) Hypertensive urgency: (2) HTN (hypertension): Qualifiers: Hypertension type: unspecified Qualified Code(s): I10 - Essential (primary) hypertension (3) Chest pain: Qualifiers: Chest pain type: unspecified Qualified Code(s): R07.9 - Chest pain, unspecified (4) Shortness of breath: (5) Hypokalemia: (6) Diabetes: Qualifiers: Diabetes mellitus type: type 2 Diabetes mellitus chicken hanger insulin use: without chicken hanger use Diabetes mellitus complication status: without complication Qualified Code(s): E11.9 - Type 2 diabetes mellitus without complications (7) H/O heart artery stent: (8) CAD (coronary artery disease): Plan Admission findings: Significant elevation in blood pressure in the emergency room 234/87 with chest pain and shortness of breath. Mild headache. Resulting in hypertensive urgency. Uncontrolled hypertension with hypertensive urgency-unable to use calcium channel manuel secondary to side effects. Continue with the current dosing but adding low-dose hydrochlorothiazide, she does have some mild edema today. Consult to cardiology. Possible renal artery stenosis induced hypertension-hydralazine with vasodilating effect should improve, already on an ARB-unable to use calcium channel manuel secondary to side effects iron deficiency anemia-monitor daily-Labs pending Hypokalemia--Labs pending on oral supplementation Acute kidney injury-admission creatinine of 1.28, baseline creatinine 1.02 -to be 125.5% above baseline-improved today, likely elevated secondary to the hypertensive urgency-check on labs later today Admission findings: Patient with hypertensive urgency-blood pressure still significantly elevated today. Will continue to adjust medications. Medically necessary treatment will span 2 midnights. Inpatient status. DS: Summary Time Spent with Patient Time attestation: Total time spent providing and/or coordinating discharge services: Exam Constitutional Vital Signs, click to edit/add: Last Vital Signs Temp 98.3 F 07/26/24 03:00 Pulse 73 07/26/24 08:00 Resp 18 07/26/24 03:00 BP 133/68 07/26/24 03:00 Pulse Ox 96 07/26/24 04:08 O2 Del Method Nasal Cannula 07/26/24 04:08 O2 Flow Rate 2 07/26/24 04:08 DS: Data Data Completed and Pending Labs on day of discharge: Labs from last 24 hours 07/26/24 07/25/24 07/25/24 05:04 20:21 15:20 WBC 7.2 RBC 4.09 L Hgb 11.2 L Hct 34.7 L MCV 84.8 MCH 27.4 MCHC 32.3 RDW 14.8 Plt Count 223 MPV 10.3 Neut % (Auto) 57.9 Lymph % (Auto) 30.1 [place] % (Auto) 6.6 Eos % (Auto) 4.6 Baso % (Auto) 0.7 Neut # (Auto) 4.2 Lymph # (Auto) 2.2 [place] # (Auto) 0.5 Eos # (Auto) 0.3 Baso # (Auto) 0.1 Abs Immat Gran (auto) 0.01 Imm/Tot Granulo (auto) 0.1 Sodium 144 Potassium 3.5 Chloride 107 Carbon Dioxide 25.3 Anion Gap 15.2 BUN 14.0 Creatinine 1.24 H Est GFR ( Amer) 53 L Est GFR (Non-Af Amer) 44 L BUN/Creatinine Ratio 11.3 Glucose 101 Calcium 9.1 POC Glucose 113 H 92 07/25/24 07/25/24 11:40 08:37 WBC RBC Hgb Hct MCV MCH MCHC RDW Plt Count MPV Neut % (Auto) Lymph % (Auto) [place] % (Auto) Eos % (Auto) Baso % (Auto) Neut # (Auto) Lymph # (Auto) [place] # (Auto) Eos # (Auto) Baso # (Auto) Abs Immat Gran (auto) Imm/Tot Granulo (auto) Sodium 146 H Potassium 3.3 L Chloride 109 H Carbon Dioxide 25.2 Anion Gap 15.1 BUN 13.0 Creatinine 1.23 H Est GFR ( Amer) 54 L Est GFR (Non-Af Amer) 45 L BUN/Creatinine Ratio 10.6 Glucose 108 H Calcium 9.1 POC Glucose 146 H Discharge Plan Discharge Condition: Good Discharge Medications: No Action metformin 500 mg tablet 500 mg PO BID aspirin 81 mg capsule 81 mg PO DAILY sennosides-docusate sodium [Colace 2-In-1] 8.6-50 mg tablet 1 tab-cap PO DAILY PRN (Reason: constipation) pantoprazole [Protonix] 40 mg tablet,delayed release (DR/EC) 40 mg PO .ACB isosorbide mononitrate 60 mg tablet extended release 24 hr 120 mg PO DAILY Qty: 60 11RF Rx Instructions: may also split up and take BID - hold if BP <110 systolic lorazepam [Ativan] 1 mg tablet 1 mg PO TID PRN (Reason: anxiety) 7 Days Qty: 20 0RF losartan 100 mg tablet 100 mg PO DAILY rosuvastatin 40 mg tablet 40 mg PO DAILY quetiapine [Seroquel] 100 mg tablet 100 mg PO .QHS carvedilol 25 mg tablet 25 mg PO BID clopidogrel 75 mg tablet 75 mg PO DAILY Print Language: Urdu
--- NOTE | 2024-07-26 08:12 | CM.NOTE ---
Rounds made with Dr. Murillo. Dr. Murillo reviewed medication adjustments with Aby. Potential discharge later today if BP remains stable.
[2024-07-26] MEDS: LOSARTAN POTASSIUM 50 MG TABLET 100 MG PO (08:25)
[2024-07-26] MEDS: METFORMIN HCL 500 MG TABLET PO ×2 (08:25→21:09)
[2024-07-26] MEDS: ASPIRIN 81 MG TABLET.DR PO (08:26)
[2024-07-26] MEDS: ISOSORBIDE MONONITRATE 60 MG TAB.ER.24H 120 MG PO (08:26)
[2024-07-26] MEDS: CARVEDILOL 25 MG TABLET PO ×2 (08:26→21:09)
[2024-07-26] MEDS: CANAGLIFLOZIN 100 MG TABLET PO (08:26)
[2024-07-26] MEDS: POTASSIUM CHLORIDE 10 MEQ ER TABLET 20 MEQ PO ×2 (08:26→21:08)
[2024-07-26] MEDS: HYDROCHLOROTHIAZIDE 25 MG TABLET PO (08:27)
[2024-07-26] MEDS: CLOPIDOGREL BISULFATE 75 MG TABLET PO (08:27)
[2024-07-26] MEDS: ROSUVASTATIN 40 MG 40 EACH PO (08:39)
[2024-07-26] MEDS: HYDRALAZINE HCL 20 MG/ML VIAL 5 MG IVP (09:12)
[2024-07-26] MEDS: ONDANSETRON PF 4 MG/2 ML VIAL IV (09:13)
--- NOTE | 2024-07-26 09:31 | P.PN_ITS ---
Progress Note: Subjective Subjective Interval history: Patient with episodes of chest pain, shortness of breath with significant elevated blood pressures with systolics greater than 180 requiring IV hydralazine to improve Exam Constitutional Vital Signs, click to edit/add: Last Vital Signs Temp 98.2 F 07/26/24 08:27 Pulse 77 07/26/24 08:26 Resp 18 07/26/24 08:26 BP 172/67 H 07/26/24 09:12 Pulse Ox 95 07/26/24 08:26 O2 Del Method Nasal Cannula 07/26/24 08:06 O2 Flow Rate 2 07/26/24 04:08 Documenting provider has reviewed patient's vital signs: yes Common normals: no apparent distress General appearance: cooperative, comfortable and well developed Nutritional appearance: obese HENMT Common normals: normocephalic Head and scalp: normal to inspection Face and sinus: normal facial exam Nose: external nose normal External ear: external ears normal Eye Common normals: PERRL and EOMs intact bilaterally General eye: normal appearance of both eyes Neck & C-Spine Common normals: full ROM General: normal visual inspection Chest Common normals: inspection of chest normal Respiratory Common normals: normal respiratory effort Effort & inspection: able to speak in complete sentences Auscultation: clear to auscultation bilaterally Cardio Common normals: no JVD Rate: regular rate Rhythm: regular rhythm Heart sounds: S1 normal and S2 normal GI Common normals: Normal to inspection, nondistended, normoactive bowel sounds present Neuro Sensorium/orientation: awake, alert and oriented to person Progress Note: Objective Labs Labs: Short CBC 07/26/24 Range/Units 05:04 WBC 7.2 (4.0-11.0) 10^3/uL Hgb 11.2 L (12.0-16.0) g/dL Hct 34.7 L (36.0-48.0) % Plt Count 223 (150-450) 10^3/uL BMP 07/26/24 05:04 Sodium 144 Potassium 3.5 Chloride 107 Carbon Dioxide 25.3 BUN 14.0 Creatinine 1.24 H Glucose 101 Calcium 9.1 Progress Note: A&P Assessment and Plan (1) Hypertensive urgency: (2) HTN (hypertension): Qualifiers: Hypertension type: unspecified Qualified Code(s): I10 - Essential (primary) hypertension (3) Chest pain: Qualifiers: Chest pain type: unspecified Qualified Code(s): R07.9 - Chest pain, unspecified (4) Shortness of breath: (5) Hypokalemia: (6) Diabetes: Qualifiers: Diabetes mellitus type: type 2 Diabetes mellitus shelter insulin use: without shelter use Diabetes mellitus complication status: without complication Qualified Code(s): E11.9 - Type 2 diabetes mellitus without complications (7) H/O heart artery stent: (8) CAD (coronary artery disease): Plan Admission findings: Significant elevation in blood pressure in the emergency room with chest pain and shortness of breath. Mild headache. Resulting in hypertensive urgency. Uncontrolled hypertension with hypertensive urgency-still requiring IV hydralazine at least twice a day. Will adjust medications again further, increase her carvedilol, add spironolactone, add Invokana Possible renal artery stenosis induced hypertension-hydralazine with vasodilating effect should improve, already on an ARB-unable to use calcium channel manuel secondary to side effects iron deficiency anemia-monitor daily-Labs pending Hypokalemia--Labs pending on oral supplementation Acute kidney injury-admission creatinine of 1.28, baseline creatinine 1.02 -to be 125.5% above baseline-improved today, Admission findings: Patient with hypertensive urgency-blood pressure still significantly elevated today. Will continue to adjust medications. Medically necessary treatment will span 2 midnights. Inpatient status.-Needs to maintain at least 1 additional day, she needs to be able to go 1 day without requiring IV hydralazine for elevated blood pressure and chest pain.
--- NOTE | 2024-07-26 09:57 | PC.NURSE ---
pt now complaining of pain in back by left shoulder blade...offered tylenol but refuses tylenol. Dr to be notified
--- NOTE | 2024-07-26 10:02 | ECG_ITS ---
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
[2024-07-26 10:55] LABS: Glucometer 138 mg/dL (74-106)
[2024-07-26] MEDS: ACETAMINOPHEN 500 MG TABLET 1000 MG PO ×2 (11:45→22:17)
[2024-07-26] MEDS: LORAZEPAM 1 MG TABLET PO (11:48)
[2024-07-26 15:59] LABS: Glucometer 150 mg/dL (74-106)
[2024-07-26 20:00] LABS: Glucometer 125 mg/dL (74-106)
[2024-07-26] MEDS: TEMAZEPAM 15 MG CAPSULE PO (21:08)
[2024-07-26] MEDS: QUETIAPINE FUMARATE 100 MG TABLET PO (21:09)
[2024-07-27] VITALS (10 sets, daily range): BP systolic 105–162; BP diastolic 70–73; PULSE 67–90; TEMP 36.7–36.9; O2SAT 93–96
[2024-07-27] MEDS: OMEPRAZOLE 40 MG CAPSULE.DR PO (05:45)
[2024-07-27 06:05] LABS: Basophils Absolute Auto 0.1 10^3/uL (0.0-0.1); Basophils Percent Auto 0.9 % (0.2-2.0); Eosinophils Absolute Auto 0.3 10^3/uL (0.0-0.7); Eosinophils Percent Auto 3.9 % (0.9-7.0); Hematocrit 36.1 % (36.0-48.0); Hemoglobin 11.6 g/dL (12.0-16.0); Immature Granulocytes Abs Auto 0.01 10^3/uL (0.00-0.03); Immature Granulocytes Pct Auto 0.2 % (0.0-0.5); Lymphocytes Absolute Auto 2.2 10^3/uL (1.2-3.8); Lymphocytes Percent Auto 34.2 % (20.5-60.0); Mean Corpuscular HGB Conc 32.1 g/dL (29.9-35.2); Mean Corpuscular Hemoglobin 27.2 pg (26.7-34.0); Mean Corpuscular Volume 84.7 fL (81.0-99.0); Mean Platelet Volume 10.5 fL (9.5-13.5); Monocytes Absolute Auto 0.6 10^3/uL (0.3-0.8); Monocytes Percent Auto 8.5 % (1.7-12.0); Neutrophils Absolute Auto 3.4 10^3/uL (1.4-6.5); Neutrophils Percent Auto 52.3 % (43.0-75.0); Platelet Count 232 10^3/uL (150-450); Red Blood Count 4.26 10^6/uL (4.20-5.40); Red Cell Distribution Width 14.8 % (11.0-15.0); White Blood Count 6.5 10^3/uL (4.0-11.0)
[2024-07-27 06:20] LABS: Anion Gap 12.3; BUN Creatinine Ratio 12.4; Calcium 9.1 mg/dL (8.5-10.1); Carbon Dioxide 28.2 mmol/L (21.0-32.0); Chloride 102 mmol/L (98-107); Estimated GFR (African America 48 (>=60); Estimated GFR (Non-African Ame 39 (>=60); Glucose 97 mg/dL (74-106); Potassium 3.5 mmol/L (3.5-5.1); Sodium 139 mmol/L (136-145)
--- NOTE | 2024-07-27 09:12 | CM.NOTE ---
Reached out to Dr. Murillo regarding pt's CPAP machine being broken and need for new device. Pt will need a sleep study for insurance to cover another machine. Dr. Murillo states he will take care of this at pt's f/u appt. Discussed this with pt and importance of reminding Dr. Murillo at appt.
[2024-07-27] MEDS: ASPIRIN 81 MG TABLET.DR PO (09:14)
[2024-07-27] MEDS: METFORMIN HCL 500 MG TABLET PO (09:14)
[2024-07-27] MEDS: CANAGLIFLOZIN 100 MG TABLET PO (09:14)
[2024-07-27] MEDS: POTASSIUM CHLORIDE 10 MEQ ER TABLET 20 MEQ PO (09:14)
[2024-07-27] MEDS: CLOPIDOGREL BISULFATE 75 MG TABLET PO (09:14)
[2024-07-27] MEDS: ISOSORBIDE MONONITRATE 60 MG TAB.ER.24H 120 MG PO (09:14)
[2024-07-27] MEDS: HYDROCHLOROTHIAZIDE 25 MG TABLET PO (09:14)
[2024-07-27] MEDS: LOSARTAN POTASSIUM 50 MG TABLET 100 MG PO (09:14)
[2024-07-27] MEDS: SPIRONOLACTONE 25 MG TABLET 50 MG PO (09:14)
[2024-07-27] MEDS: ROSUVASTATIN 40 MG 40 EACH PO (09:16)
--- NOTE | 2024-07-27 10:28 | P.DS_ITS ---
DS: Providers Provider Date of admission: 07/24/24 10:58 Primary care physician: Carlito Murillo MD Consults: 07/25/24 06:54 Consult to Cardiology Routine Reason for consultation: HTN urgency , renal art stenosis Has provider been notified: No DS: Diagnosis Discharge Diagnosis (1) Hypertensive urgency: (2) HTN (hypertension): Qualifiers: Hypertension type: unspecified Qualified Code(s): I10 - Essential (primary) hypertension (3) Chest pain: Qualifiers: Chest pain type: unspecified Qualified Code(s): R07.9 - Chest pain, unspecified (4) Shortness of breath: (5) Hypokalemia: (6) Diabetes: Qualifiers: Diabetes mellitus complication status: without complication 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 Mild headache. Resulting in hypertensive urgency. Uncontrolled hypertension with hypertensive urgency-improving at the time of discharge Possible renal artery stenosis induced hypertension-seeing cardiology as an outpatient iron deficiency anemia-monitor daily-Labs pending Hypokalemia-stable at the time of discharge Acute kidney injury-admission creatinine of 1.28,-stable at the time of discharge Admission findings: Patient with hypertensive urgency-blood pressure still significantly elevated today. Will continue to adjust medications. Medically necessary treatment will span 2 midnights. Inpatient status.-Needs to maintain at least 1 additional day, she needs to be able to go 1 day without requiring IV hydralazine for elevated blood pressure and chest pain. DS: Summary Hospital Course Hospital Course: Patient was seen and evaluated in the emergency room with a reoccurrence of her hypertensive urgency, she had chest pain, shortness of breath with significant blood pressure elevation of systolic greater than 230. She was readmitted to the hospital, medications were adjusted, consultation with cardiology, the new addition would be hydralazine 50 mg 3 times a day and carvedilol increased to 25 mg 3 times a day with spironolactone. Also added Invokana for improved glycemic control as well as fluid management with her hypertension. So far blood pressure in last 24 hours is improved she has required 1 dose of IV hydralazine. With medications adjusted yesterday, suspect she will do well throughout the rest of the day. The plan is to have her discharged to home today. See me in the office tomorrow. Medications see list. Prescription sent to pharmacy Patient will also need new facemask for her CPAP. Ozaa-hm-hhmq evaluation completed this will improve her blood pressure control as well as daytime wakefulness Status at Discharge Overall status at discharge: patient is not back to baseline Time Spent with Patient Time attestation: Total time spent providing and/or coordinating discharge services: Time spent: greater than 30 minutes Exam Constitutional Vital Signs, click to edit/add: Last Vital Signs Temp 98.0 F 07/27/24 08:00 Pulse 87 07/27/24 10:00 Resp 18 07/27/24 08:00 BP 145/72 H 07/27/24 09:50 Pulse Ox 96 07/27/24 08:00 O2 Del Method Room Air 07/27/24 08:00 O2 Flow Rate 2 07/27/24 03:31 Documenting provider has reviewed patient's vital signs: yes Common normals: no apparent distress General appearance: cooperative, comfortable and well developed Nutritional appearance: obese HENMT Common normals: normocephalic Head and scalp: normal to inspection Face and sinus: normal facial exam Nose: external nose normal External ear: external ears normal Eye Common normals: PERRL and EOMs intact bilaterally General eye: normal appearance of both eyes Neck & C-Spine Common normals: full ROM General: normal visual inspection Chest Common normals: inspection of chest normal Respiratory Common normals: normal respiratory effort Effort & inspection: able to speak in complete sentences Auscultation: clear to auscultation bilaterally Cardio Common normals: no JVD Rate: regular rate Rhythm: regular rhythm Heart sounds: S1 normal and S2 normal GI Common normals: Normal to inspection, nondistended, normoactive bowel sounds present Neuro Sensorium/orientation: awake, alert and oriented to person DS: Data Data Completed and Pending Labs on day of discharge: Labs from last 24 hours 07/27/24 07/26/24 07/26/24 05:37 19:51 15:58 WBC 6.5 RBC 4.26 Hgb 11.6 L Hct 36.1 MCV 84.7 MCH 27.2 MCHC 32.1 RDW 14.8 Plt Count 232 MPV 10.5 Neut % (Auto) 52.3 Lymph % (Auto) 34.2 [place] % (Auto) 8.5 Eos % (Auto) 3.9 Baso % (Auto) 0.9 Neut # (Auto) 3.4 Lymph # (Auto) 2.2 [place] # (Auto) 0.6 Eos # (Auto) 0.3 Baso # (Auto) 0.1 Abs Immat Gran (auto) 0.01 Imm/Tot Granulo (auto) 0.2 Sodium 139 Potassium 3.5 Chloride 102 Carbon Dioxide 28.2 Anion Gap 12.3 BUN 17.0 Creatinine 1.37 H Est GFR ( Amer) 48 L Est GFR (Non-Af Amer) 39 L BUN/Creatinine Ratio 12.4 Glucose 97 Calcium 9.1 POC Glucose 125 H 150 H 07/26/24 10:53 WBC RBC Hgb Hct MCV MCH MCHC RDW Plt Count MPV Neut % (Auto) Lymph % (Auto) [place] % (Auto) Eos % (Auto) Baso % (Auto) Neut # (Auto) Lymph # (Auto) [place] # (Auto) Eos # (Auto) Baso # (Auto) Abs Immat Gran (auto) Imm/Tot Granulo (auto) Sodium Potassium Chloride Carbon Dioxide Anion Gap BUN Creatinine Est GFR ( Amer) Est GFR (Non-Af Amer) BUN/Creatinine Ratio Glucose Calcium POC Glucose 138 H Discharge Plan Discharge Disposition: Home, Self-Care Condition: Good Discharge Medications: New carvedilol 25 mg Tablet 25 mg PO TID Qty: 90 11RF isosorbide mononitrate 60 mg Tablet Extended Release 24 Hr 120 mg PO DAILY Qty: 60 11RF hydrochlorothiazide 25 mg Tablet 25 mg PO QD Qty: 30 11RF Invokana 100 mg Tablet 100 mg PO QD Qty: 30 11RF hydralazine 50 mg tablet 50 mg PO TID Qty: 90 11RF Continued metformin 500 mg tablet 500 mg PO BID aspirin 81 mg capsule 81 mg PO DAILY sennosides-docusate sodium [Colace 2-In-1] 8.6-50 mg tablet 1 tab-cap PO DAILY PRN (Reason: constipation) pantoprazole [Protonix] 40 mg tablet,delayed release (DR/EC) 40 mg PO .ACB lorazepam [Ativan] 1 mg tablet 1 mg PO TID PRN (Reason: anxiety) 7 Days Qty: 20 0RF losartan 100 mg tablet 100 mg PO DAILY rosuvastatin 40 mg tablet 40 mg PO DAILY quetiapine [Seroquel] 100 mg tablet 100 mg PO .QHS clopidogrel 75 mg tablet 75 mg PO DAILY Discontinued isosorbide mononitrate 60 mg tablet extended release 24 hr 120 mg PO DAILY Qty: 60 11RF Rx Instructions: may also split up and take BID - hold if BP <110 systolic carvedilol 25 mg tablet 25 mg PO BID Print Language: Guatemalan Patient Instructions: Hydrochlorothiazide (By mouth), Hydralazine (By mouth), Canagliflozin (By mouth) (Invokana), Hypertension (DC) Forms: Portal Instructions Follow Up Appointments: Jul.28 @ 1:15pm with Dr. Murillo [phone]
[2024-07-27] MEDS: LORAZEPAM 1 MG TABLET PO (10:47)
--- NOTE | 2024-07-28 14:00 | CM.DCFOLLOWU ---
Person spoke with:pt's daughter How are you feeling? well How is your pain? none Did you understand your discharge instructions?yes Do you have any questions about your discharge instructions?no Were you given any prescriptions at discharge? yes Were you able to get your prescriptions filled?yes Do you understand how to take your medications as ordered?yes Do you have any questions about your follow up appointment and do you plan to keep your follow up appointment? no questions, she is at follow up with Dr. Murillo right now Is there anything else that you would like to discuss?no Questions/Comments/Concerns/Other: n/a
== END 2024-07-27 13:12 | disposition home or self-care (01) | DRG 199 ==
LOC: ER 20:06 → MS 07-24 00:15
PROVIDERS: Registered Nurse; Admitting Provider Family Medicine; Emergency Provider Student in an Organized Health Care Education/Training Program; PCP Family Medicine; Visit Provider Family Medicine
DX: I16.0 Hypertensive urgency (principal); D50.9 Iron deficiency anemia, unspecified; E87.6 Hypokalemia; N17.9 Acute kidney failure, unspecified; E11.9 Type 2 diabetes mellitus without complications; I25.10 Atherosclerotic heart disease of native coronary artery without angina pectoris; E66.9 Obesity, unspecified; R07.9 Chest pain, unspecified; R06.02 Shortness of breath; I70.1 Atherosclerosis of renal artery; I25.2 Old myocardial infarction; Z87.891 Personal history of nicotine dependence; Z95.5 Presence of coronary angioplasty implant and graft; Z90.49 Acquired absence of other specified parts of digestive tract; Z98.51 Tubal ligation status; Z79.84 Long term (current) use of oral hypoglycemic drugs; Z79.82 Long term (current) use of aspirin; Z79.899 Other long term (current) drug therapy; Z68.37 Body mass index [BMI] 37.0-37.9, adult
CPT/HCPCS: 36415; 80048; 80053; 82948; 83735; 83880; 84100; 84484; 85025; 85610; 85730; 93005; 94761; 96365; 96366; 96375; 96376; 99285; J0360; J2405; J3480

== ENCOUNTER 2024-07-28 11:26 | Emergency (ER) | payer MEDICAID, SELFPAY ==
[2024-07-28] VITALS (8 sets, daily range): BP systolic 105–132; BP diastolic 53–68; PULSE 80–86; TEMP 36.6; O2SAT 92–99; BMI 37.0
--- NOTE | 2024-07-28 11:35 | ED_ITS ---
HPI - Syncope General Chief Complaint: Syncope Stated Complaint: LOW BLOOD PRESSURE Time Seen by Provider: 07/28/24 11:34 Mode of arrival: ambulance History of Present Illness HPI narrative: 59-year-old female here with her daughter for a near syncopal event. She has been seeing her doctor on a regular basis for blood pressure monitoring and control. Recently her medications were increased due to hypertension. Today when she got up her daughter took her blood pressure several times this morning and it was normal. She then went in to use the restroom and have a bowel movement. She started getting woozy and lightheaded after the bowel movement and her daughter checked and it was 80. There was no seizure activity or convulsive activity. Her daughter states there is no symptoms of a stroke when the squad was called her blood pressure is now starting to recover and she is feeling better and looks better as well according to the daughter. She has known to have coronary disease and actually had a single stent placed in June of this year. She was seen on arrival and placed on the monitor. We will obtain an EKG as well. She states that she is feeling better and has no other blood pressure here is acceptable as well. She did not have a headache preceding this. She did not have any palpitations she did not have any heaviness or squeezing or discomfort preceding this event today. Related Data Home Medications ?Medication ?Instructions ?Recorded ?Confirmed metformin 500 mg tablet 500 mg PO BID 04/21/24 07/28/24 aspirin 81 mg capsule 81 mg PO DAILY 04/22/24 07/28/24 clopidogrel 75 mg tablet 75 mg PO DAILY 07/01/24 07/28/24 pantoprazole 40 mg tablet,delayed 40 mg PO .ACB 07/20/24 07/28/24 release (Protonix) sennosides 8.6 mg-docusate sodium 1 tab-cap PO DAILY PRN constipation 07/20/24 07/28/24 50 mg tablet (Colace 2-In-1) losartan 100 mg tablet 100 mg PO DAILY 07/24/24 07/28/24 quetiapine 100 mg tablet (Seroquel) 100 mg PO .QHS 07/24/24 07/28/24 rosuvastatin 40 mg tablet 40 mg PO DAILY 07/24/24 07/28/24 Previous Rx's ?Medication ?Instructions ?Recorded lorazepam 1 mg tablet (Ativan) 1 mg PO TID PRN anxiety 7 days #20 07/22/24 tabs canagliflozin 100 mg tablet 100 mg PO QD #30 tabs 07/27/24 (Invokana) carvedilol 25 mg tablet 25 mg PO TID #90 tabs 07/27/24 hydralazine 50 mg tablet 50 mg PO TID #90 tabs 07/27/24 hydrochlorothiazide 25 mg tablet 25 mg PO QD #30 tabs 07/27/24 isosorbide mononitrate 60 mg 120 mg (2 x 60 mg) PO DAILY #60 07/27/24 tablet,extended release 24 hr tabs Allergies Allergy/AdvReac Type Severity Reaction Status Date / Time amlodipine Allergy Mild Headache Verified 07/20/24 16:34 alprazolam [From Xanax] AdvReac Severe Watery Eye Verified 07/20/24 16:34 [facility] Medical History (Updated 07/28/24 @ 12:51 by Yossi Recinos MD) Hypertensive urgency ?I16.0 - Hypertensive urgency (ICD-10) Chest pain ?R07.9 - Chest pain, unspecified (ICD-10) Anxiety ?F41.9 - Anxiety disorder, unspecified (ICD-10) HTN (hypertension) ?I10 - Essential (primary) hypertension (ICD-10) Hypokalemia ?E87.6 - Hypokalemia (ICD-10) Hypertension, uncontrolled ?I10 - Essential (primary) hypertension (ICD-10) Chest pain ?R07.9 - Chest pain, unspecified (ICD-10) NSTEMI (non-ST elevated myocardial infarction) ?I21.4 - Non-ST elevation (NSTEMI) myocardial infarction (ICD-10) Shortness of breath ?R06.02 - Shortness of breath (ICD-10) Headache ?R51.9 - Headache, unspecified (ICD-10) Elevated d-dimer ?R79.89 - Other specified abnormal findings of blood chemistry (ICD-10) Hypertensive emergency ?I16.1 - Hypertensive emergency (ICD-10) Uncontrolled hypertension ?I10 - Essential (primary) hypertension (ICD-10) Irritable bowel syndrome ?K58.9 - Irritable bowel syndrome without diarrhea (ICD-10) H/O nephrolithotomy with removal of calculi ?Z98.890 - Other specified postprocedural states (ICD-10) ?Z87.442 - Personal history of urinary calculi (ICD-10) Kidney stone ?N20.0 - Calculus of kidney (ICD-10) Sepsis ?A41.9 - Sepsis, unspecified organism (ICD-10) H/O angiography ?Z92.89 - Personal history of other medical treatment (ICD-10) Lung nodule ?R91.1 - Solitary pulmonary nodule (ICD-10) Anxiety ?F41.9 - Anxiety disorder, unspecified (ICD-10) HTN (hypertension) ?I10 - Essential (primary) hypertension (ICD-10) Diabetes ?E11.9 - Type 2 diabetes mellitus without complications (ICD-10) TIA (transient ischemic attack) ?G45.9 - Transient cerebral ischemic attack, unspecified (ICD-10) Surgical History (Updated 07/24/24 @ 01:23 by Mamta Gauthier RN) H/O heart artery stent ?Z95.5 - Presence of coronary angioplasty implant and graft (ICD-10) History of appendectomy ?Z90.49 - Acquired absence of other specified parts of digestive tract (ICD- 10) H/O tubal ligation ?Z98.51 - Tubal ligation status (ICD-10) History of cholecystectomy ?Z90.49 - Acquired absence of other specified parts of digestive tract (ICD- 10) Family History (Updated 04/22/24 @ 01:15 by Stalin Kevin) Mother Family history of cancer Father MVA (motor vehicle accident) Brother Family history of stroke Social History (Updated 04/22/24 @ 01:26 by Stalin Kevin) Within the past year, how often did you have a drink containing alcohol: never Within the past year, how often did you have six or more drinks on one occasion: never Score interpretation: A score less than 3 is consistent with normal alcohol consumption. Smoking status: Former smoker Second hand tobacco smoke exposure: No Non-prescribed substance use: denies use Previous occupational history: no Known occupational exposures/hazards: No Highest level of school completed/degree received: high school graduate Do you want help with school or training: No Are you now , , , , never or living with a partner: In a typical week, how many times do you talk on the telephone with family, friends, or neighbors: 3 or more times per week How often do you get together with friends or relatives: 3 or more times per week How often do you attend anabaptist or mormon services: never Do you belong to any clubs or organizations such as anabaptist groups unions, fraternal or athletic groups, or school groups: no Total score: 1 Score interpretation: A score of less than or equal to 1 indicates the most socially isolated. Little interest or pleasure in doing things: not at all Feeling down, depressed, or hopeless: not at all Feel stressed/tense/nervous/anxious/difficulty sleeping: not at all Do you think of yourself as: straight/heterosexual Gender Identity: female Exam Narrative Exam Narrative: Awake alert was placed on the monitor on arrival here and a twelve-lead EKG was done. Cognition and mentation are normal. Her blood pressure is now stabilized. She feels and looks a lot better according to the daughter. Cognition and mentation are normal there is no evidence of a postictal state. She is not confused and not repeating herself. There is no facial asymmetry or cranial nerve abnormality on her examination. Her lungs are clear and her heart sounds are normal with no S3-S4 or murmur. She was not having any arrhythmia. She did not have any bradycardia. Her skin was warm and dry she is not clammy or diaphoretic. There is good perfusion to the extremities with good strong pulses. She has no abdominal pain or discomfort. Constitutional Vital Signs, click to edit/add: Last Vital Signs Temp 97.8 F 07/28/24 11:28 Pulse 80 07/28/24 11:47 Resp 20 07/28/24 11:47 BP 111/65 07/28/24 11:47 Pulse Ox 98 07/28/24 11:47 O2 Del Method Room Air 07/28/24 11:28 Course Vital Signs Vital signs: Vital Signs Temperature 97.8 F 07/28/24 11:28 Pulse Rate 86 07/28/24 11:28 Respiratory Rate 18 07/28/24 11:28 Blood Pressure 105/68 07/28/24 11:28 Pulse Oximetry 99 07/28/24 11:28 Oxygen Delivery Method Room Air 07/28/24 11:28 Temperature 97.8 F 07/28/24 11:28 Pulse Rate 80 07/28/24 11:47 Respiratory Rate 20 07/28/24 11:47 Blood Pressure 111/65 07/28/24 11:47 Pulse Oximetry 98 07/28/24 11:47 Oxygen Delivery Method Room Air 07/28/24 11:28 MDM - Syncope MDM Narrative Medical decision making narrative: This patient is under care of her primary care doctor and is also seeing cardiology for the medications that she is taking for blood pressure. She is on approximately 5 different meds but they feel that all these are necessary because she is so labile. When I spoke to her primary care doctor we reviewed the test results her troponin and D-dimer are negative hemoglobin hematocrit basic kidney function are unchanged. Her twelve-lead EKG shows left ventricular hypertrophy with no acute ST segment elevation, no arrhythmia and no change from her recent EKG. Her primary care doctor is scheduled to see her today in approximately 30 minutes and is planning to do so. She is discharged in satisfactory condition Lab Data Labs: Lab Results 07/28/24 Range/Units 12:00 WBC 9.8 (4.0-11.0) 10^3/uL RBC 4.74 (4.20-5.40) 10^6/uL Hgb 12.9 (12.0-16.0) g/dL Hct 40.3 (36.0-48.0) % MCV 85.0 (81.0-99.0) fL MCH 27.2 (26.7-34.0) pg MCHC 32.0 (29.9-35.2) g/dL RDW 14.3 (11.0-15.0) % Plt Count 277 (150-450) 10^3/uL MPV 9.7 (9.5-13.5) fL Discharge Plan Discharge Chief Complaint: Syncope Clinical Impression: Vasovagal syncope Patient Disposition: Home, Self-Care Time of Disposition Decision: 12:51 Prescriptions / Home Meds: No Action metformin 500 mg tablet 500 mg PO BID aspirin 81 mg capsule 81 mg PO DAILY sennosides-docusate sodium [Colace 2-In-1] 8.6-50 mg tablet 1 tab-cap PO DAILY PRN (Reason: constipation) pantoprazole [Protonix] 40 mg tablet,delayed release (DR/EC) 40 mg PO .ACB lorazepam [Ativan] 1 mg tablet 1 mg PO TID PRN (Reason: anxiety) 7 Days Qty: 20 0RF losartan 100 mg tablet 100 mg PO DAILY rosuvastatin 40 mg tablet 40 mg PO DAILY quetiapine [Seroquel] 100 mg tablet 100 mg PO .QHS carvedilol 25 mg Tablet 25 mg PO TID Qty: 90 11RF isosorbide mononitrate 60 mg Tablet Extended Release 24 Hr 120 mg PO DAILY Qty: 60 11RF hydrochlorothiazide 25 mg Tablet 25 mg PO QD Qty: 30 11RF Invokana 100 mg Tablet 100 mg PO QD Qty: 30 11RF hydralazine 50 mg tablet 50 mg PO TID Qty: 90 11RF clopidogrel 75 mg tablet 75 mg PO DAILY Print Language: Samoan Additional Instructions: Your doctor will see you today at your regular scheduled appointment Referrals: Carlito Murillo MD [Primary Care Provider] - 1 week
--- NOTE | 2024-07-28 11:44 | ECG_ITS ---
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
--- OUTSIDE RECORDS SUMMARY | 2024-07-28 11:48 | XMS_ITS | CCD ---
Author Organization [facility] CliniSyga Care Team Providers Care Casino Manager Name Role Phone Kendra Murillo Primary Care Physician [phone] Umm MARTÍNEZ Attending Unavailable NILL, Umm Michael [...] FELECIA Referring Unavailable HORANI, NONA Referring Unavailable HORANI, NONA Referring Unavailable FEDERICA ANDERSON Referring Unavailable HOYKENDRA Referring Unavailable HORANI, NONA Attending Unavailable HORANI, NONA Admitting Unavailable HERMINIA LI Attending Unavailable HORANI, NONA Referring Unavailable TAO HARRISON Attending Unavailable HORANI, NONA Admitting Unavailable JOSE BETANCUR Referring Unavailable HERMINIA LI Referring Unavailable FEDERICA ANDERSON Referring Unavailable RICHA VIRAMONTES Attending Unavailable NONA ALFARO Referring Unavailable FENG CHRISTIE Attending Unavailable GOMEZ JAY Attending Unavailable BIJAN MITCHELL Attending Unavailable MESERET MAC Referring Unavailable FENG CHRISTIE Attending Unavailable BIJAN MITCHELL Attending Unavailable Allergies Allergy Classification Reported Allergen(s) Allergy Type Date of Onset Reaction(s) Facility (1 source) No Known Medication Allergies; 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: [No Known Medication Allergies] Propensity to adverse reactions (disorder) [facility] Repository (1 source) ALPRAZolam; 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: [ALPRAZOLAM] Drug Allergy [address] [place] [address] Repository (1 source) amLODIPine; 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: [AMLODIPINE] Drug Allergy 4 [facility] Repository (1 source) Lisinopril; 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: [LISINOPRIL] Drug Allergy [address] [place] [address] Repository Medications Current Medications Medication Drug Class(es) [...] Coronary arteriosclerosis; 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: [Atherosclerotic heart disease of [place] coronary artery without angina pectoris] Onset: 3 [...] 11-26-2022 12-20-2019 Episodic Other aftercare (1 source) 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; 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: [FPC CURRENT USE OF ASPIRIN] Onset: 11-26-2022 Episodic Other aftercare (1 source) 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 (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 therapy; 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: [OTH [facility] CURRENT DRUG THERAPY] Onset: 11-26-2022 Episodic Other [...] Interpretation Reference Range Facility Telemedicine 07-20-2024 Telemedicine [id number] Aby Madrigal 1965 F Date Provider Department Center 07/20/2024 RICHA MERINO ONC DCC Family History Problem Relation Age of Onset Lung cancer Mother No Known Problems Father Lung cancer Sister Family Status - Relation Status Age at Mother Father Sister Level of Service:47338 [place] PHYS/QHP TELEPHONE EVALUATION 21-30 MIN () Reason for Visit and Comments: 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 CT CHEST 04-21-24- PET 06-21-24 Films requested 07-18-24 HAVING HARD TIME GETTING FILMS FROM [place] AGAIN. Ginny at [place] ([phone] direct line) is working on sending them. CHECK [facility] FOR FILMS PLEASE Normal [facility] 37on 07-18-2024 37 It was great [...] lab work done at one of these [facility] Lab Sites The results will then come straight to me I appreciate it [facility] [address], [place] Hours Wednesday - Wednesday 8 AM - 4PM (Closed 12 - 12:30 PM daily) Phone: [facility] [address] Hours: Wednesday - Wednesday 6 AM - 5 PM Saturday: 7 AM - 2 PM Phone: [address] [place] Hours: Wednesday - Wednesday 7 AM - 3:30 PM Phone: [facility] [address] [place] [address] Hours: Wednesday 7 AM - 5:30 PM Phone: [facility] [address], [place] Hours: Wednesday 8 AM - 4:30 PM Phone: [facility] EDNURSon 07-18-2024 EDNURS ADR and relevant inf o reported to [facility] in pharmacy d/t safety net being down. Viet Kelly RN 07/18/24 1139 [facility] EDNURS SENT FROM MD OFFICE RE: LOW BP; RECENT DC FROM [facility] FOR SAME [facility] EDPROVon 07-18-2024 EDPROV HPI Chief Complaint [...] new meds yesterday. History provided by: Patient interpreter deaf used: No [place] Coma Scale Score: 15 Patient History Past [...] by mouth i (more content not included)... [facility] Office Visiton 07-18-2024 Follow-up visit [id number] Aby Madrigal 1965 F Date Provider Department Center 07/18/2024 [id number], [facility] ENDOCR [facility] Family History Problem Relation Age of Onset Lung cancer Mother No Known Problems Father Lung cancer Sister Family Status - Relation Status Age at Mother Father Sister Level of Service:55954 [place] OFFICE/OUTPATIENT NEW MODERATE MDM 45 MINUTES Reason for Visit and Comments: Nodules [Other] [facility] Follow-up visit [id number] Aby Madrigal 1965 F Date Provider Department [place] 07/18/2024 [id number] [facility]ANG [facility] ENDOCR [facility] Family History Problem Relation Age of Onset Lung cancer Mother No Known Problems Father Lung cancer Sister Family Status - Relation Status Age at Mother Father Sister Level of Service:NOCHG [place]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 I am calling you to follow [...] No Patient Name Aby Madrigal Date 07/13/24 [facility] Telephoneon 07-13-2024 Telephone [id number] Aby Madrigal 1965 F Date Provider Department [place] 07/13/2024 GINNY MALONEY [facility] C Family History Problem Relation Age of Onset Lung cancer Mother No Known Problems Father Lung cancer Sister Family Status - Relation Status Age at Mother Father Sister Reason for Visit and Comments: Hospital Follow-up [832] Normal [facility] 30on 07-12-2024 30 The patient is [...] to address these barriers include . Normal [facility] ANTI-XA (HEPARIN LEVEL)on HEPARIN UNFRACTIONATED (U/ML) IN PPP BY CHROMOGENIC METHOD 0.60 IU/mL Normal 0.3-0.7 [facility] Comment on above: Order Comment: Basel ine aPTT before initiating heparin infusion. Result Comment: [place] roxaban and Apixaban will interfere with the anti Xa assay used to monitor UFH and LMWH. Performed By: #### L [id number] #### [facility] ([facility]) [address] [place] [address] BASIC METABOLIC PANELon 06-23 Anion gap [Moles/Vol] 10 mmol/L Normal 7-20 [facility] Comment on above: Performed By: #### L [id number] #### [facility] ([facility]) [address] [place] [address] Calcium [Mass/Vol] 8.8 mg/dL Normal 8.6-10.3 [facility] Comment on above: Performed By: #### L [id number] #### [facility] ([facility]) [address] [place] [address] Chloride [Moles/Vol] 108 mmol/L High 98-107 [facility] Comment on above: Performed By: #### L [id number] #### [facility] ([facility]) [address] [place] [address] CO2 [Moles/Vol] 27 mmol/L Normal 21-31 [facility] Comment on above: Performed By: #### L [id number] #### [facility] ([facility]) [address] [place] [address] Creatinine [Mass/Vol] 0.89 mg/dL Normal 0.60-1.20 [facility] Comment on above: Performed By: #### L [id number] #### [facility] ([facility]) [address] [place] [address] GLOMERULAR FILTRATION RATE ML/MIN/1.73 SQ M.PREDICTED 74.2 mL/min/1.73m*2 Normal >60.0 [facility] Comment on above: Result Comment: [facility]???s estimated glomerular filtration rate (eGFR) will [...] individuals. Performed By: #### L [id number] #### [facility] ([facility]) [address] [place] [address] Glucose [Mass/Vol] 109 mg/dL High 70-100 [facility] Comment on above: Performed By: #### L [id number] #### [facility] ([facility]) [address] [place] [address] Potassium [Moles/Vol] 3.4 mmol/L Low 3.5-5.1 [facility] Comment on above: Performed By: #### L [id number] #### [facility] ([facility]) [address] [place] [address] Sodium [Moles/Vol] 142 mmol/L Normal 136-145 [facility] Comment on above: Performed By: #### L [id number] #### [facility] ([facility]) [address] [place] [address] Urea nitrogen [Mass/Vol] 11 mg/dL Normal 7-25 [facility] Comment on above: Performed By: #### L [id number] #### [facility] ([facility]) [address] [place] [address] UREA NITROGEN/CREATININE (MASS RATIO) IN SER/PLAS 12.4 Normal [facility] Comment on above: Performed By: #### L [id number] #### [facility] [address] [place] [address] CBC WITH AUTO DIFFERENTIALon 07-12-2024 Basophils (Bld) [#/Vol] 0.04 10*3/uL Normal 0.00-0.20 [facility] Comment on above: Performed By: #### L [id number] #### [facility] ([facility]) [address] [place] [address] Basophils/100 WBC (Bld) 0.6 % Normal 0.0-1.0 [facility] Comment on above: Performed By: #### L [id number] #### [facility] ([facility]) [address] [place] [address] Eosinophils (Bld) [#/Vol] 0.22 10*3/uL Normal 0.00-0.50 [facility] Comment on above: Performed By: #### L [id number] #### [facility] ([facility]) [address] [place] [address] Eosinophils/100 WBC (Bld) 3.5 % Normal 0.0-6.0 [facility] Comment on above: Performed By: #### L [id number] #### [facility] ([facility]) [address] [place] [address] Erythrocyte distribution width (RBC) [Ratio] 14.5 % Normal 11.5-15.0 [facility] Comment on above: Performed By: #### L [id number] #### [facility] ([facility]) [address] [place] [address] ERYTHROCYTE MEAN CORPUSCULAR HEMOGLOBIN CONCENTRATION (G/DL) BY AUTOMATED 32.7 g/dL Normal 32.0-35.0 [facility] Comment on above: Performed By: #### L [id number] #### [facility] ([facility] [address] [place] [address] Hematocrit (Bld) [Volume fraction] 34.2 % Low 36.0-48.0 [facility] Comment on above: Performed By: #### L [id number] #### [facility] (BEAKER) [address] [place] [address] Hemoglobin (Bld) [Mass/Vol] 11.2 g/dL Low 12.0-15.0 [facility] Comment on above: Performed By: #### L [id number] #### [facility] ([facility]) [address] [place] [address] Immature granulocytes (Bld) [#/Vol] 0.01 10*3/uL Normal 0.00-0.20 [facility] Comment on above: Performed By: #### L [id number] #### [facility] ([facility]) [address] [place] [address] Immature granulocytes/100 WBC (Bld) 0.2 % Normal 0.0-1.0 [facility] Comment on above: Performed By: #### L [id number] #### [facility] ([facility]) [address] [place] [address] Lymphocytes (Bld) [#/Vol] 2.37 10*3/uL Normal 1.20-4.00 [facility] Comment on above: Performed By: #### L [id number] #### [facility] ([facility]) [address] [place] [address] Lymphocytes/100 WBC (Bld) 37.8 % Normal 20.0-45.0 [facility] Comment on above: Performed By: #### L [id number] #### [facility] [address] [place] [address] MCH (RBC) [Entitic mass] 27.4 pg Normal 27.0-33.0 [facility] Comment on above: Performed By: #### L [id number] #### [facility] (BEAKER) [address] [place] [address] MCV (RBC) [Entitic vol] 83.6 fL Normal 82.0-98.0 [facility] Comment on above: Performed By: #### L [id number] #### [facility] (BEAKER) [address] [place] [address] Monocytes (Bld) [#/Vol] 0.43 10*3/uL Normal 0.10-1.00 [facility] Comment on above: Performed By: #### L [id number] #### [facility] (BEAKER) [address] [place] [address] Monocytes/100 WBC (Bld) 6.9 % Normal 5.0-12.0 [facility] Comment on above: Performed By: #### L [id number] #### [facility] ([facility] [address] [place] [address] Neutrophils (Bld) [#/Vol] 3.20 10*3/uL Normal 1.60-7.60 [facility] Comment on above: Performed By: #### L [id number] #### [facility] ([facility]) [address] [place] [address] Neutrophils/100 WBC (Bld) 51.0 % Normal 40.0-72.0 [facility] Comment on above: Performed By: #### L [id number] #### [facility] ([facility]) [address] [place] [address] NRBC (PER 100 WBCS) BY AUTOMATED COUNT 0.0 % Normal 0 [facility] Comment on above: Performed By: #### L [id number] #### [facility] ([facility] [address] [place] [address] PLATELETS (10*3/UL) IN BLOOD AUTOMATED COUNT 223 10*3/uL Normal 150-400 [facility] Comment on above: Performed By: #### L [id number] #### [facility] ([facility] [address] [place] [address] RBC (Bld) [#/Vol] 4.09 10*6/uL Normal 3.80-5.00 [facility] Comment on above: Performed By: #### L [id number] #### [facility] ([facility]) [address] [address] WBC (Bld) [#/Vol] 6.27 10*3/uL Normal 4.00-10.60 [facility] Comment on above: Performed By: #### L [id number] #### [facility] ([facility]) [address] [place] [address] MAGNESIUMon 07-12-2024 Magnesium [Mass/Vol] 1.7 mg/dL Low 1.9-2.7 [facility] Comment on above: Performed By: #### L [id number] #### [facility] ([facility]) [address] [facility] [place] [address] POCT GLUCOSE METER UNSOLICIT ED RESULTSon 07-12-2024 Glucose [Mass/Vol] 102 mg/dL Normal 70-105 [facility] Comment on above: Order Comment: Waive d Testing in the ED is performed under the ED CLIA certificate #[id number]. Result Comment: shod [id number] Performed By: #### L [id number] #### [facility] ([facility]) [address] [place] [address] TROPONIN Ion 07-12-2024 Troponin I.cardiac [Mass/Vol] 0.01 ng/mL Normal 0.00-0.04 [facility] Comment on above: Performed By: #### L [id number] #### [facility] ([facility]) [address] [place] [address] 30on 07-11-2024 30 The patient is Moderately [...] and maintained or improved Outcome: Progressing Normal [facility] 30 The patient is Moderately Stable - Low risk of patient condition declining or worsening The patient's goals for the shift include no chest pain The clinical goals for the shift include stable vital/no chest pain Over the shift, the patient did not make progress toward the following goals. Barriers to progression include . Recommendations to address these barriers include . Normal [facility] ALDOSTERONEon 07-11-2024 ALDOSTERONE (NG/DL) IN SER/PLAS 4.9 ng/dL Normal [facility] Comment on above: Result Comment: INTE [...] reference intervals for this test in the [facility] Test [facility] ([facility]). Performed By: [employer] [address] [place] [address] Business Strategist: Navneet Simeon MD, PhD CLIA Number: [id number] Performed By: #### L [id number] #### [facility] (BEAKER) [address] [place] [address] ANTI-XA (HEPARIN LEVEL)on HEPARIN UNFRACTIONATED (U/ML) IN PPP BY CHROMOGENIC METHOD 0.42 IU/mL Normal 0.3-0.7 [facility] Comment on above: Order Comment: Check anti-Xa level every 6 hours while on heparin infusion, or per protocol. Result Comment: [place] roxaban and Apixaban will interfere with the anti Xa assay used to monitor UFH and LMWH. Performed By: #### L [id number] #### [facility] (BEAKER) [address] [place] [address] HEPARIN UNFRACTIONATED (U/ML) IN PPP BY CHROMOGENIC METHOD 0.20 IU/mL Low 0.3-0.7 [facility] Comment on above: Order Comment: Basel ine aPTT before initiating heparin infusion. Result Comment: [place] roxaban and Apixaban will interfere with the anti Xa assay used to monitor UFH and LMWH. Performed By: #### L [id number] #### [facility] ([facility]) [address] [place] [address] APTTon 07-11-2023 ACTIVATED PARTIAL THROMBOPLASTIN TIME IN PPP BY COAGULATION ASSAY 43.0 Seconds High 25.0-35.0 [facility] Comment on above: Result Comment: Clin ical significance of the APTT is questionable in the presence of heparin. Performed By: #### L [id number] #### [facility] ([facility]) [address] [place] [address] BASIC METABOLIC PANELon 06-23 Anion gap [Moles/Vol] 9 mmol/L Normal 7-20 [facility] Comment on above: Performed By: #### L [id number] #### [facility] ([facility]) [address] [place] [address] Calcium [Mass/Vol] 8.8 mg/dL Normal 8.6-10.3 [facility] Comment on above: Performed By: #### L [id number] #### [facility] ([facility]) [address] [place] [address] Chloride [Moles/Vol] 108 mmol/L High 98-107 [facility] Comment on above: Performed By: #### L [id number] #### [facility] ([facility]) [address] [place] [address] CO2 [Moles/Vol] 28 mmol/L Normal 21-31 [facility] Comment on above: Performed By: #### L [id number] #### [facility] ([facility]) [address] [place] [address] Creatinine [Mass/Vol] 1.09 mg/dL Normal 0.60-1.20 [facility] Comment on above: Performed By: #### L [id number] #### [facility] ([facility]) [address] [place] [address] GLOMERULAR FILTRATION RATE ML/MIN/1.73 SQ M.PREDICTED 58.2 mL/min/1.73m*2 Low >60.0 [facility] Comment on above: Result Comment: [facility]???s estimated glomerular filtration rate (eGFR) will [...] individuals. Performed By: #### L [id number] #### [facility] ([facility]) [address] [place] [address] Glucose [Mass/Vol] 113 mg/dL High 70-100 [facility] Comment on above: Performed By: #### L [id number] #### [facility] ([facility]) [address] [place] [address] Potassium [Moles/Vol] 3.4 mmol/L Low 3.5-5.1 [facility] Comment on above: Performed By: #### L [id number] #### [facility] ([facility]) [address] [place] [address] Sodium [Moles/Vol] 142 mmol/L Normal 136-145 [facility] Comment on above: Performed By: #### L [id number] #### [facility] ([facility]) [address] [place] [address] Urea nitrogen [Mass/Vol] 14 mg/dL Normal 7-25 [facility] Comment on above: Performed By: #### L [id number] #### [facility] ([facility]) [address] [place] [address] UREA NITROGEN/CREATININE (MASS RATIO) IN SER/PLAS 12.8 Normal [facility] Comment on above: Performed By: #### L [id number] #### [facility] ([facility]) [address] [place] [address] CBC WITH AUTO DIFFERENTIALon 07-11-2024 Basophils (Bld) [#/Vol] 0.04 10*3/uL Normal 0.00-0.20 [facility] Comment on above: Performed By: #### L [id number] #### [facility] ([facility]) [address] [facility] [place] [address] Basophils/100 WBC (Bld) 0.6 % Normal 0.0-1.0 [facility] Comment on above: Performed By: #### L [id number] #### [facility] ([facility]) [address] [place] [address] Eosinophils (Bld) [#/Vol] 0.16 10*3/uL Normal 0.00-0.50 [facility] Comment on above: Performed By: #### L [id number] #### [facility] ([facility]) [address] [place] [address] Eosinophils/100 WBC (Bld) 2.2 % Normal 0.0-6.0 [facility] Comment on above: Performed By: #### L [id number] #### [facility] ([facility]) [address] [place] [address] Erythrocyte distribution width (RBC) [Ratio] 14.6 % Normal 11.5-15.0 [facility] Comment on above: Performed By: #### L [id number] #### [facility] ([facility]) [address] [place] [address] ERYTHROCYTE MEAN CORPUSCULAR HEMOGLOBIN CONCENTRATION (G/DL) BY AUTOMATED 32.0 g/dL Normal 32.0-35.0 [facility] Comment on above: Performed By: #### L [id number] #### [facility] ([facility]) [address] [place] [address] Hematocrit (Bld) [Volume fraction] 36.2 % Normal 36.0-48.0 [facility] Comment on above: Performed By: #### L [id number] #### [facility] (BEAKER) [address] [place] [address] Hemoglobin (Bld) [Mass/Vol] 11.6 g/dL Low 12.0-15.0 [facility] Comment on above: Performed By: #### L [id number] #### [facility] ([facility] [address] [place] [address] Immature granulocytes (Bld) [#/Vol] 0.02 10*3/uL Normal 0.00-0.20 [facility] Comment on above: Performed By: #### L [id number] #### [facility] ([facility]) [address] [place] [address] Immature granulocytes/100 WBC (Bld) 0.3 % Normal 0.0-1.0 [facility] Comment on above: Performed By: #### L [id number] #### [facility] ([facility]) [address] [place] [address] Lymphocytes (Bld) [#/Vol] 2.34 10*3/uL Normal 1.20-4.00 [facility] Comment on above: Performed By: #### L [id number] #### [facility] ([facility]) [address] [place] [address] Lymphocytes/100 WBC (Bld) 32.6 % Normal 20.0-45.0 [facility] Comment on above: Performed By: #### L [id number] #### [facility] ([facility]) [address] [place] [address] MCH (RBC) [Entitic mass] 27.2 pg Normal 27.0-33.0 [facility] Comment on above: Performed By: #### L [id number] #### [facility] ([facility] [address] [place] [address] MCV (RBC) [Entitic vol] 85.0 fL Normal 82.0-98.0 [facility] Comment on above: Performed By: #### L [id number] #### [facility] ([facility]) [address] [place] [address] Monocytes (Bld) [#/Vol] 0.49 10*3/uL Normal 0.10-1.00 [facility] Comment on above: Performed By: #### L [id number] #### [facility] ([facility]) [address] [place] [address] Monocytes/100 WBC (Bld) 6.8 % Normal 5.0-12.0 [facility] Comment on above: Performed By: #### L [id number] #### [facility] ([facility]) [address] [place] [address] Neutrophils (Bld) [#/Vol] 4.13 10*3/uL Normal 1.60-7.60 [facility] Comment on above: Performed By: #### L [id number] #### [facility] ([facility]) [address] [place] [address] Neutrophils/100 WBC (Bld) 57.5 % Normal 40.0-72.0 [facility] Comment on above: Performed By: #### L [id number] #### [facility] ([facility]) [address] [place] [address] NRBC (PER 100 WBCS) BY AUTOMATED COUNT 0.0 % Normal 0 [facility] Comment on above: Performed By: #### L [id number] #### [facility] ([facility]) [address] [place] [address] PLATELETS (10*3/UL) IN BLOOD AUTOMATED COUNT 245 10*3/uL Normal 150-400 [facility] Comment on above: Performed By: #### L [id number] #### [facility] ([facility]) [address] [place] [address] RBC (Bld) [#/Vol] 4.26 10*6/uL Normal 3.80-5.00 [facility] Comment on above: Performed By: #### L [id number] #### [facility] ([facility]) [address] [place] [address] WBC (Bld) [#/Vol] 7.18 10*3/uL Normal 4.00-10.60 [facility] Comment on above: Performed By: #### L [id number] #### [facility] ([facility]) [address] [place] [address] CONSULTon 07-11-2024 CONSULT -- Attestation signed by [...] Brown is the endocrine surgeon in the [place] area that would be most appropriate and [...] with plan for outpatient follow up with [facility] and endocrinology Meseret Mac MD Cardiology Consult Note Reason for Consult: Chest pain HPI: Aby Madrigal is a 59 y.o. female patient is presenting as a transfer from [facility] for the evaluation of chest pain. Past [...] medical history of Abnormal ECG, Diabetes mellitus ([facility]), Hyperlipidemia, Hypertension, Obstructive sleep apnea, Panic attacks, and Stroke ([facility]). Surgical History She has a past surgical [...] Value Ventricular Rate 56 Atrial Rate 56 [place] Interval 180 QRS DURATION 94 QT Interval 430 QTC (more content not included)... Normal [facility] EDPROVon 07-11-2024 EDPROV HPI Chief Complaint [...] Pt states she was trasnfered here from [place] to be transferred to cardiology. Pt states she had a cardiac stent placed last week. She denies fever, coughing, vomiting, abdominal pain. She admits diarrhea. She felt better when given ativan and worse when she was given morphine. She has had her gallbladder removed. History provided by: Patient interpreter deaf used: No Chest Pain Associated symptoms: no abdominal pain, no cough, no fever and no vomiting [place] Coma Scale Score: 15 Patient History Past [...] & MDM Medical Decision Making I, Basilia Kelvin scribe, documented on behalf of Dr. Anderson. Chief complaint chest pain Plan of Care: APTT, Troponin I, CBC, Protime-INR, BMP Attestation: Provider Statement SALVADOR: Provider Statement 2nd Scribe. By electronically signing this emergency patient record, the Emergency Physician/LASER TECHNICIAN/PA-C attests that all entries made into the electronic medical record by the scribe prior to the Physician/LASER TECHNICIAN/PA-C signature reflect an accurate accounting of the evaluation and care rendered by that Emergency Physician/LASER TECHNICIAN/PA-C. The Emergency Physician/LASER TECHNICIAN/PA-C assumes full responsibility for those entries. The Emergency Physician/LASER TECHNICIAN/PA-C also attests that any patient testing or treatment that was instituted by nursing staff. [facility] EDPROV HPI Chief Complaint Patient presents [...] Pt states she was trasnfered here from [place] to be transferred to cardiology. Pt states she had a cardiac stent placed last week. She denies fever, coughing, vomiting, abdominal pain. She admits diarrhea. She felt better when given ativan and worse when she was given morphine. She has had her gallbladder removed. History provided by: Patient interpreter deaf used: No Chest Pain Associated symptoms: no abdominal pain, no cough, no fever and no vomiting [place] Coma Scale Score: 15 Patient History Past [...] 07/11/24 1256 NSTEMI (non-ST elevated myocardial infarction) ([facility]) Medical Decision Making Amount and/or Complexity of Data Reviewed Labs: ordered. Decision-making details documented in ED Course. ECG/medicine tests: ordered and independent interpretation performed. Decision-making details documented in ED Course. Risk Drug therapy requiring intensive monitoring for toxicity. Decision regarding hospitalization. Minor surgery with identified risk factors. I, Basilia diallo (more content not included)... Invalid Interpretation Code [facility] POCT GLUCOSE METER UNSOLICIT ED RESULTSon 07-11-2024 Glucose [Mass/Vol] 122 mg/dL High 70-105 [facility] Comment on above: Order Comment: Waive d Testing in the ED is performed under the ED CLIA certificate #[id number]. Result Comment: [email or web address] Performed By: #### L [id number] #### [facility] ([facility]) [address] [place] [address] PROTIME-INRon 07-11-2024 INR IN PPP BY COAGULATION ASSAY 1.00 Normal 0.90-1.10 [facility] Comment on above: Result Comment: ACCC [...] RANGE. CHEST 1995;108:[id number]. Performed By: #### L [id number] #### [facility] ([facility]) [address] [place] [address] PROTHROMBIN TIME (PT) IN PPP BY COAGULATION ASSAY 13.2 Seconds Normal 12.3-14.8 [facility] Comment on above: Performed By: #### L [id number] #### [facility] ([facility]) [address] [place] [address] RENIN ACTIVITYon 07-11-2024 RENIN ACTIVITY <0.1 Normal [facility] Comment on above: Result Comment: INTE RPRETIVE INFORMATION: Renin Activity Adult, Normal sodium diet: Supine ................. 0.2-1.6 ng/mL/hr Upright ................ 0.5-4.0 ng/mL/hr Children, Normal sodium diet, Supine: [place] (1-7 days) ..... 2.0-35.0 ng/mL/hr Cord blood [...] developed and its performance characteristics determined by [facility] [employer]. It has not been cleared or approved by the US Food and Drug Administration. This test was performed in a CLIA certified laboratory and is intended for clinical purposes. Performed By: [facility] [address] [place] [address] Business Strategist: Navneet Simeon MD, PhD CLIA Number: [id number] Performed By: #### L [id number] #### [facility] ([facility]) [address] [place] [address] TROPONIN Ion 07-11-2024 Troponin I.cardiac [Mass/Vol] 0.01 ng/mL Normal 0.00-0.04 [facility] Comment on above: Performed By: #### L [id number] #### [facility] ([facility]) [address] [place] [address] Office Visiton 07-10-2024 Follow-up visit [id number] Aby Madrigal 1965 F Date Provider Department Center 07/10/2024 [id number][facility]WPU[facility]BI[facility]AN [facility] Family History Problem Relation Age of Onset Lung cancer Mother No Known Problems Father Lung cancer Sister Family Status - Relation Status Age at Mother Father Sister Level of Service:[address] [place] OFFICE/OUTPATIENT ESTABLISHED MOD MDM 30 MIN Reason for Visit and Comments: Coronary Artery Disease [187] Post-Cath [731] Normal [facility] 36on 07-03-2024 36 Post Discharge Call Good morning, I am Ginny Kirkland, RN a lead nurse from [facility]. I am calling you to follow [...] Patient Name Aby Madrigal Date 07/03/24 Normal [facility] Telephoneon 07-03-2024 Telephone [id number] Aby Madrigal 1965 F Date Provider Department Center 07/03/2024 Adela-GINNY KIRKLAND [facility] Family History Problem Relation Age of Onset Lung cancer Mother No Known Problems Father Lung cancer Sister Family Status - Relation Status Age at Mother Father Sister Reason for Visit and Comments: Hospital Follow-up [832] Normal [facility] 30on 07-01-2024 30 The patient is [...] and maintained or improved Outcome: Progressing Normal [facility] BASIC METABOLIC PANELon 08- Anion gap [Moles/Vol] 14 mmol/L Normal - [facility] Comment on above: Performed By: #### L [id number] #### [facility] ([facility]) [address] [place] [address] Calcium [Mass/Vol] 8.2 mg/dL Low 8.6-10.3 [facility] Comment on above: Performed By: #### L [id number] #### [facility] ([facility]) [address] [place] [address] Chloride [Moles/Vol] 106 mmol/L Normal 98-107 [facility] Comment on above: Performed By: #### L [id number] #### [facility] ([facility]) [address] [place] [address] CO2 [Moles/Vol] 25 mmol/L Normal 21-31 [facility] Comment on above: Performed By: #### L [id number] #### [facility] ([facility]) [address] [place] [address] Creatinine [Mass/Vol] 0.91 mg/dL Normal 0.60-1.20 [facility] Comment on above: Performed By: #### L [id number] #### [facility] ([facility]) [address] [place] [address] GLOMERULAR FILTRATION RATE ML/MIN/1.73 SQ M.PREDICTED 72.2 mL/min/1.73m*2 Normal >60.0 [facility] Comment on above: Result Comment: [facility]???s estimated glomerular filtration rate (eGFR) will [...] individuals. Performed By: #### L [id number] #### [facility] ([facility]) [address] [place] [address] Glucose [Mass/Vol] 101 mg/dL High 70-100 [facility] Comment on above: Performed By: #### L [id number] #### [facility] ([facility]) [address] [place] [address] Potassium [Moles/Vol] 3.5 mmol/L Normal 3.5-5.1 [facility] Comment on above: Performed By: #### L [id number] #### [facility] ([facility]) [address] [place] [address] Sodium [Moles/Vol] 141 mmol/L Normal 136-145 [facility] Comment on above: Performed By: #### L [id number] #### [facility] ([facility]) [address] [place] [address] Urea nitrogen [Mass/Vol] 13 mg/dL Normal 7-25 [facility] Comment on above: Performed By: #### L [id number] #### [facility] ([facility]) [address] [address] UREA NITROGEN/CREATININE (MASS RATIO) IN SER/PLAS 14.3 Normal [facility] Comment on above: Performed By: #### L [id number] #### [facility] ([facility]) [address] [place] [address] CBCon 07-01-2024 Erythrocyte distribution width (RBC) [Ratio] 15.4 % High 11.5-15.0 [facility] Comment on above: Performed By: #### L [id number] #### [facility] ([facility]) [address] [place] [address] ERYTHROCYTE MEAN CORPUSCULAR HEMOGLOBIN CONCENTRATION (G/DL) BY AUTOMATED 32.1 g/dL Normal 32.0-35.0 [facility] Comment on above: Performed By: #### L [id number] #### [facility] ([facility]) [address] [address] Hematocrit (Bld) [Volume fraction] 38.6 % Normal 36.0-48.0 [facility] Comment on above: Performed By: #### L [id number] #### [facility] ([facility]) [address] [place] [address] Hemoglobin (Bld) [Mass/Vol] 12.4 g/dL Normal 12.0-15.0 [facility] Comment on above: Performed By: #### L [id number] #### [facility] ([facility]) [address] [place] [address] MCH (RBC) [Entitic mass] 26.9 pg Low 27.0-33.0 [facility] Comment on above: Performed By: #### L [id number] #### [facility] ([facility]) [address] [place] [address] MCV (RBC) [Entitic vol] 83.7 fL Normal 82.0-98.0 [facility] Comment on above: Performed By: #### L [id number] #### [facility] ([facility]) [address] [place] [address] PLATELETS (10*3/UL) IN BLOOD AUTOMATED COUNT 238 10*3/uL Normal 150-400 [facility] Comment on above: Performed By: #### L [id number] #### [facility] ([facility]) [address] [place] [address] RBC (Bld) [#/Vol] 4.61 10*6/uL Normal 3.80-5.00 [facility] Comment on above: Performed By: #### L [id number] #### [facility] ([facility]) [address] [place] [address] WBC (Bld) [#/Vol] 7.04 10*3/uL Normal 4.00-10.60 [facility] Comment on above: Performed By: #### L [id number] #### [facility] ([facility]) [address] [place] [address] LIPID PANELon 07-01-2024 CHOL/HDL 3.8 mg/dL Normal [facility] Comment on above: Performed By: #### L [id number] #### [facility] ([facility]) [address] [place] [address] Cholesterol [Mass/Vol] 128 mg/dL Normal 120-200 [facility] Comment on above: Performed By: #### L [id number] #### [facility] ([facility]) [address] [place] [address] Magnesium [Mass/Vol] 87 mg/dL Normal 40-149 [facility] Comment on above: Result Comment: TRIG LYCERIDE REFERENCE RANGE: 20 YEARS AND OLDER CARDIOVASCULAR RISK LESS THAN 150 mg/dL LOW RISK 150 TO 199 mg/dL BORDERLINE RISK 200 mg/dL AND GREATER HIGH RISK Performed By: #### L [id number] #### [facility] ([facility]) [address] [place] [address] Magnesium [Mass/Vol] 77 mg/dL Normal 0-160 [facility] Comment on above: Performed By: #### L [id number] #### [facility] ([facility]) [address] [place] [address] Magnesium [Mass/Vol] 34 mg/dL Normal 23-92 [facility] Comment on above: Performed By: #### L [id number] #### [facility] ([facility]) [address] [place] [address] NON HDL CHOL. (LDL+VLDL) 94 Normal [facility] Comment on above: Performed By: #### L [id number] #### [facility] ([facility]) [address] [place] [address] TOTAL VLDL-C 17 mg/dL Normal 0-40 [facility] Comment on above: Performed By: #### L [id number] #### [facility] ([facility]) [address] [place] [address] MAGNESIUMon 07-01-2024 Magnesium [Mass/Vol] 2.0 mg/dL Normal 1.9-2.7 [facility] Comment on above: Performed By: #### L [id number] #### [facility] ([facility]) [address] [place] [address] NURSNOTEon 07-01-2024 NURSNOTE Discharge instructio ns given, reviewed, questions, answered, signed, copy received. Normal [facility] POCT GLUCOSE METER UNSOLICIT ED RESULTSon 07-01-2024 Glucose [Mass/Vol] 124 mg/dL High 70-105 [facility] Comment on above: Order Comment: Basel ine aPTT before initiating heparin infusion. Result Comment: [email or web address] Performed By: #### L [id number] #### [facility] ([facility]) [address] [place] [address] Glucose [Mass/Vol] 106 mg/dL High 70-105 [facility] Comment on above: Order Comment: Waive d Testing in the ED is performed under the ED CLIA certificate #[id number]. Result Comment: [email or web address] Performed By: #### L [id number] #### [facility] ([facility]) [address] [place] [address] TROPONIN Ion 07-01-2024 Troponin I.cardiac [Mass/Vol] 0.09 ng/mL High 0.00-0.04 [facility] Comment on above: Performed By: #### L [id number] #### [facility] ([facility]) [address] [place] [address] 30on 06-30-2024 30 The patient is Moderately Stable - Low risk of patient condition declining or worsening The patient's goals for the shift include comfort, rest The clinical goals for the shift include stable vitals, comfort Problem: Pain - Adult Goal: Verbalizes/displays adequate comfort level or baseline comfort level Outcome: Not Progressing Normal [facility] 30 Daily Case Managemen t Update [...] PT Recommendations: OT Recommendations: New Consults: Normal [facility] 30 The patient is Moderately Stable - Low risk of patient condition declining or worsening The patient's goals for the shift include COMFORT The clinical goals for the shift include VSS Over the shift, the patient did not make progress toward the following goals. Barriers to progression include . Recommendations to address these barriers include . Normal [facility] ANTI-XA (HEPARIN LEVEL)on HEPARIN UNFRACTIONATED (U/ML) IN PPP BY CHROMOGENIC METHOD 0.64 IU/mL Normal 0.3-0.7 [facility] Comment on above: Order Comment: Check anti-Xa level every 6 hours while on heparin infusion, or per protocol. Result Comment: [place] roxaban and Apixaban will interfere with the anti Xa assay used to monitor UFH and LMWH. Performed By: #### L [id number] #### [facility] ([facility]) [address] [place] [address] BASIC METABOLIC PANELon 08- Anion gap [Moles/Vol] 11 mmol/L Normal 7-20 [facility] Comment on above: Performed By: #### L [id number] #### [facility] ([facility]) [address] [place] [address] Calcium [Mass/Vol] 8.3 mg/dL Low 8.6-10.3 [facility] Comment on above: Performed By: #### L [id number] #### [facility] ([facility]) [address] [place] [address] Chloride [Moles/Vol] 110 mmol/L High 98-107 [facility] Comment on above: Performed By: #### L [id number] #### [facility] ([facility]) [address] [place] [address] CO2 [Moles/Vol] 26 mmol/L Normal 21-31 [facility] Comment on above: Performed By: #### L [id number] #### [facility] ([facility] [address] [place] [address] Creatinine [Mass/Vol] 0.81 mg/dL Normal 0.60-1.20 [facility] Comment on above: Performed By: #### L [id number] #### [facility] ([facility] [address] [place] [address] GLOMERULAR FILTRATION RATE ML/MIN/1.73 SQ M.PREDICTED 83.1 mL/min/1.73m*2 Normal >60.0 [facility] Comment on above: Result Comment: [facility]???s estimated glomerular filtration rate (eGFR) will [...] group of individuals. Performed By: #### L [id number] #### [facility] ([facility] [address] [place] [address] Glucose [Mass/Vol] 110 mg/dL High 70-100 [facility] Comment on above: Performed By: #### L [id number] #### [facility] ([facility] [address] [place] [address] Potassium [Moles/Vol] 3.7 mmol/L Normal 3.5-5.1 [facility] Comment on above: Performed By: #### L [id number] #### [facility] ([facility]) [address] [place] [address] Sodium [Moles/Vol] 143 mmol/L Normal 136-145 [facility] Comment on above: Performed By: #### L [id number] #### [facility] ([facility]) [address] [place] [address] Urea nitrogen [Mass/Vol] 10 mg/dL Normal 7-25 [facility] Comment on above: Performed By: #### L [id number] #### [facility] ([facility]) [address] [place] [address] UREA NITROGEN/CREATININE (MASS RATIO) IN SER/PLAS 12.3 Normal [facility] Comment on above: Performed By: #### L [id number] #### [facility] ([facility]) [address] [place] [address] CBCon 06-30-2024 Erythrocyte distribution width (RBC) [Ratio] 15.3 % High 11.5-15.0 [facility] Comment on above: Performed By: #### L [id number] #### [facility] ([facility]) [address] [place] [address] ERYTHROCYTE MEAN CORPUSCULAR HEMOGLOBIN CONCENTRATION (G/DL) BY AUTOMATED 31.3 g/dL Low 32.0-35.0 [facility] Comment on above: Performed By: #### L [id number] #### [facility] ([facility]) [address] [place] [address] Hematocrit (Bld) [Volume fraction] 36.7 % Normal 36.0-48.0 [facility] Comment on above: Performed By: #### L [id number] #### [facility] ([facility]) [address] [place] [address] Hemoglobin (Bld) [Mass/Vol] 11.5 g/dL Low 12.0-15.0 [facility] Comment on above: Performed By: #### L [id number] #### [facility] ([facility]) [address] [place] [address] MCH (RBC) [Entitic mass] 26.9 pg Low 27.0-33.0 [facility] Comment on above: Performed By: #### L [id number] #### [facility] ([facility]AKER) [address] [place] [address] MCV (RBC) [Entitic vol] 85.7 fL Normal 82.0-98.0 [facility] Comment on above: Performed By: #### L [id number] #### [facility] ([facility]AK[facility]) [address] [place] [address] PLATELETS (10*3/UL) IN BLOOD AUTOMATED COUNT 243 10*3/uL Normal 150-400 [facility] Comment on above: Performed By: #### L [id number] #### [facility] ([facility]AKER) [address] [place] [address] RBC (Bld) [#/Vol] 4.28 10*6/uL Normal 3.80-5.00 [facility] Comment on above: Performed By: #### L [id number] #### [facility] [address] [place] [address] WBC (Bld) [#/Vol] 7.41 10*3/uL Normal 4.00-10.60 [facility] Comment on above: Performed By: #### L [id number] #### [facility] [address] [place] [address] CONSULTon 06-30-2024 CONSULT Cardiology Consult Note Reason for Consult: NSTEMI, transfer from [facility] HPI: Aby Madrigal, a 59 y.o. female patient, is transferred from [facility] for continuity of care. Past medical history includes: HTN History of TIA DMII HLD SURESH Overweight Patient reports that 3 days ago, she woke up in the mid of the night with indigestion, and a feeling fullness, but no pressure like chest pain. She presented to [facility], where she was found to be [...] Value Ventricular Rate 71 Atrial Rate 71 OH Interval 176 QRS DURATION 92 QT Interval 424 QTC CALCULATION(BAZETT) 460 P Capulin 52 R-Capulin 19 T Wave Capulin 164 Impression Normal sinus rhythm Left ventricular [...] Normal sinu (more content not included)... Normal [facility] 06-30-2024 H&P reviewed. The patient was examined and there are no changes to the H&P. 59 y.o. year old female with a PMHx significant for DM2, hypertension presents a direct mission from [facility] with a chief complaint of chest pain [...] to proceed. Signed, Yris Oakley MD PGY-4 Pan Operator Pager: [phone] Normal [facility] POCT GLUCOSE METER UNSOLICIT ED RESULTSon 06-30-2024 Glucose [Mass/Vol] 170 mg/dL High 70-105 [facility] Comment on above: Order Comment: Waive d Testing in the ED is performed under the ED CLIA certificate #[id number]. Result Comment: [email or web address] Performed By: #### L [id number] #### [facility] (BEAKER) [address] [place] [address] Glucose [Mass/Vol] 129 mg/dL High 70-105 [facility] Comment on above: Order Comment: Waive d Testing in the ED is performed under the ED CLIA certificate #[id number]. Result Comment: [email or web address] Performed By: #### L [id number] #### [facility] (BEAKER) [address] [place] [address] Glucose [Mass/Vol] 167 mg/dL High 70-105 [facility] Comment on above: Order Comment: Waive d Testing in the ED is performed under the ED CLIA certificate #[id number]. Result Comment: [email or web address] Performed By: #### L [id number] #### [facility] ([facility]AKER) [address] [place] [address] TROPONIN Ion 06-30-2024 Troponin I.cardiac [Mass/Vol] 0.07 ng/mL High 0.00-0.04 [facility] Comment on above: Performed By: #### L [id number] #### [facility] [address] [place] [address] Troponin I.cardiac [Mass/Vol] 0.10 ng/mL High 0.00-0.04 [facility] Comment on above: Performed By: #### L [id number] #### [facility] [address] [place] [address] Troponin I.cardiac [Mass/Vol] 0.11 ng/mL Critically high 0.00-0.04 [facility] Comment on above: Result Comment: M-TR OPONIN INITIAL CRITICAL HIGH; RESPUN AND RETESTED Performed By: #### L [id number] #### [facility] ([employer] [facility]) [address] [place] [address] 30on 06-29-2024 30 The patient is Moderately Stable - Low risk of patient condition declining or worsening The patient's goals for the shift include COMFORT The clinical goals for the shift include VSS Normal [facility] APTTon 06-29-2024 ACTIVATED PARTIAL THROMBOPLASTIN TIME IN PPP BY COAGULATION ASSAY 34.5 Seconds Normal 25.0-35.0 [facility] Comment on above: Order Comment: Basel ine aPTT before initiating heparin infusion. Result Comment: Clin ical significance of the APTT is questionable in the presence of heparin. Performed By: #### L [id number] #### [facility] (BEAKER) [address] [place] [address] B-TYPE NATRIURETIC PEPTIDEon 06-29-2024 Natriuretic peptide B (Bld) [Mass/Vol] 222 pg/mL High 0-100 [facility] Comment on above: Performed By: #### L [id number] #### [facility] ([facility]) [address] [place] [address] CBC WITH AUTO DIFFERENTIALon 06-29-2024 Basophils (Bld) [#/Vol] 0.05 10*3/uL Normal 0.00-0.20 [facility] Comment on above: Performed By: #### L [id number] #### [facility] ([facility]) [address] [place] [address] Basophils/100 WBC (Bld) 0.6 % Normal 0.0-1.0 [facility] Comment on above: Performed By: #### L [id number] #### [facility] [address] [place] [address] Eosinophils (Bld) [#/Vol] 0.18 10*3/uL Normal 0.00-0.50 [facility] Comment on above: Performed By: #### L [id number] #### [facility] (BEAKER) [address] [place] [address] Eosinophils/100 WBC (Bld) 2.1 % Normal 0.0-6.0 [facility] Comment on above: Performed By: #### L [id number] #### [facility] ([facility]) [address] [place] [address] Erythrocyte distribution width (RBC) [Ratio] 14.9 % Normal 11.5-15.0 [facility] Comment on above: Performed By: #### L [id number] #### [facility] ([facility]ER) [address] [place] [address] ERYTHROCYTE MEAN CORPUSCULAR HEMOGLOBIN CONCENTRATION (G/DL) BY AUTOMATED 32.9 g/dL Normal 32.0-35.0 [facility] Comment on above: Performed By: #### L [id number] #### [facility] (BEAKER) [address] [place] [address] Hematocrit (Bld) [Volume fraction] 35.9 % Low 36.0-48.0 [facility] Comment on above: Performed By: #### L [id number] #### [facility] (BEAKER) [address] [place] [address] Hemoglobin (Bld) [Mass/Vol] 11.8 g/dL Low 12.0-15.0 [facility] Comment on above: Performed By: #### L [id number] #### [facility] (BEAKER) [address] [place] [address] Immature granulocytes (Bld) [#/Vol] 0.03 10*3/uL Normal 0.00-0.20 [facility] Comment on above: Performed By: #### L [id number] #### [facility] ([facility]ER) [address] [place] [address] Immature granulocytes/100 WBC (Bld) 0.3 % Normal 0.0-1.0 [facility] Comment on above: Performed By: #### L [id number] #### [facility] ([facility]) [address] [place] [address] Lymphocytes (Bld) [#/Vol] 2.02 10*3/uL Normal 1.20-4.00 [facility] Comment on above: Performed By: #### L [id number] #### [facility] ([facility]) [address] [place] [address] Lymphocytes/100 WBC (Bld) 23.5 % Normal 20.0-45.0 [facility] Comment on above: Performed By: #### L [id number] #### [facility] ([facility]) [address] [place] [address] MCH (RBC) [Entitic mass] 27.2 pg Normal 27.0-33.0 [facility] Comment on above: Performed By: #### L [id number] #### [facility] ([facility]) [address] [place] [address] MCV (RBC) [Entitic vol] 82.7 fL Normal 82.0-98.0 [facility] Comment on above: Performed By: #### L [id number] #### [facility] ([facility]) [address] [place] [address] Monocytes (Bld) [#/Vol] 0.56 10*3/uL Normal 0.10-1.00 [facility] Comment on above: Performed By: #### L [id number] #### [facility] (BEAKER) [address] [place] [address] Monocytes/100 WBC (Bld) 6.5 % Normal 5.0-12.0 [facility] Comment on above: Performed By: #### L [id number] #### [facility] ([facility]ER) [address] [place] [address] Neutrophils (Bld) [#/Vol] 5.74 10*3/uL Normal 1.60-7.60 [facility] Comment on above: Performed By: #### L [id number] #### [facility] ([facility]) [address] [place] [address] Neutrophils/100 WBC (Bld) 67.0 % Normal 40.0-72.0 [facility] Comment on above: Performed By: #### L [id number] #### [facility] ([facility]ER) [address] [place] [address] NRBC (PER 100 WBCS) BY AUTOMATED COUNT 0.0 % Normal 0 [facility] Comment on above: Performed By: #### L [id number] #### [facility] ([facility]AKER) [address] [place] [address] PLATELETS (10*3/UL) IN BLOOD AUTOMATED COUNT 233 10*3/uL Normal 150-400 [facility] Comment on above: Performed By: #### L [id number] #### [facility] ([facility]ER) [address] [place] [address] RBC (Bld) [#/Vol] 4.34 10*6/uL Normal 3.80-5.00 [facility] Comment on above: Performed By: #### L [id number] #### [facility] ([facility]ER) [address] [place] [address] WBC (Bld) [#/Vol] 8.58 10*3/uL Normal 4.00-10.60 [facility] Comment on above: Performed By: #### L [id number] #### [facility] ([facility]ER) [address] [place] [address] COMPREHENSIVE METABOLIC PANE Alec 06-29-2024 Albumin [Mass/Vol] 3.8 g/dL Normal 3.5-5.7 [facility] Comment on above: Performed By: #### L [id number] #### [facility] (BEAKER) [address] [place] [address] ALP [Catalytic activity/Vol] 64 U/L Normal 34-104 [facility] Comment on above: Performed By: #### L [id number] #### [facility] ([facility] [address] [place] [address] ALT [Catalytic activity/Vol] 35 U/L Normal 7-52 [facility] Comment on above: Performed By: #### L [id number] #### [facility] ([facility]) [address] [place] [address] Anion gap [Moles/Vol] 12 mmol/L Normal 7-20 [facility] Comment on above: Performed By: #### L [id number] #### [facility] ([facility]) [address] [place] [address] AST [Catalytic activity/Vol] 21 U/L Normal 13-39 [facility] Comment on above: Performed By: #### L [id number] #### [facility] ([facility]) [address] [place] [address] Bilirubin [Mass/Vol] 0.4 mg/dL Normal 0.3-1.0 [facility] Comment on above: Performed By: #### L [id number] #### [facility] ([facility]) [address] [place] [address] Calcium [Mass/Vol] 8.5 mg/dL Low 8.6-10.3 [facility] Comment on above: Performed By: #### L [id number] #### [facility] ([facility] [address] [place] [address] Chloride [Moles/Vol] 112 mmol/L High 98-107 [facility] Comment on above: Performed By: #### L [id number] #### [facility] ([facility] [address] [place] [address] CO2 [Moles/Vol] 22 mmol/L Normal 21-31 [facility] Comment on above: Performed By: #### L [id number] #### [facility] ([facility] [address] [place] [address] Creatinine [Mass/Vol] 0.92 mg/dL Normal 0.60-1.20 [facility] Comment on above: Performed By: #### L [id number] #### [facility] ([facility]) [address] [place] [address] GLOMERULAR FILTRATION RATE ML/MIN/1.73 SQ M.PREDICTED 71.3 mL/min/1.73m*2 Normal >60.0 [facility] Comment on above: Result Comment: [facility]???s estimated glomerular filtration rate (eGFR) will [...] individuals. Performed By: #### L [id number] #### [facility] ([facility]) [address] [place] [address] Glucose [Mass/Vol] 108 mg/dL High 70-100 [facility] Comment on above: Performed By: #### L [id number] #### [facility] ([facility]) [address] [address] Potassium [Moles/Vol] 3.7 mmol/L Normal 3.5-5.1 [facility] Comment on above: Performed By: #### L [id number] #### [facility] ([facility]) [address] [place] [address] Protein [Mass/Vol] 6.1 g/dL Normal 6.0-8.3 [facility] Comment on above: Performed By: #### L [id number] #### [facility] ([facility] [address] [place] [address] Sodium [Moles/Vol] 142 mmol/L Normal 136-145 [facility] Comment on above: Performed By: #### L [id number] #### [facility] ([facility]) [address] [place] [address] Urea nitrogen [Mass/Vol] 11 mg/dL Normal 7-25 [facility] Comment on above: Performed By: #### L [id number] #### [facility] ([facility]) [address] [place] [address] UREA NITROGEN/CREATININE (MASS RATIO) IN SER/PLAS 12.0 Normal [facility] Comment on above: Performed By: #### L [id number] #### [facility] ([facility]) [address] [place] [address] MAGNESIUMon 06-29-2024 Magnesium [Mass/Vol] 1.7 mg/dL Low 1.9-2.7 [facility] Comment on above: Performed By: #### L [id number] #### [facility] ([facility] [employer] [facility]) [address] [place] [address] PHOSPHORUSon 06-29-2024 Magnesium [Mass/Vol] 2.9 mg/dL Normal 2.5-5.0 [facility] Comment on above: Performed By: #### L [id number] #### [facility] ([facility]) [address] [place] [address] PROTIME-INRon 06-29-2024 INR IN PPP BY COAGULATION ASSAY 0.99 Normal 0.90-1.10 [facility] Comment on above: Result Comment: ACCC [...] 1995;108:[id number]. Performed By: #### L [id number] #### [facility] ([facility]) [address] [place] [address] PROTHROMBIN TIME (PT) IN PPP BY COAGULATION ASSAY 13.1 Seconds Normal 12.3-14.8 [facility] Comment on above: Performed By: #### L [id number] #### [facility] ([facility]) [address] [place] [address] TROPONIN Ion 06-29-2024 Troponin I.cardiac [Mass/Vol] 0.10 ng/mL High 0.00-0.04 [facility] Comment on above: Performed By: #### L [id number] #### [facility] ([facility]) [address] [place] [address] Office Visiton 06-21-2024 Follow-up visit [id number] Aby Madrigal 1965 F Date Provider Department Center 06/21/2024 GOMEZ KENDALL RIAZ [place] Family History Problem Relation Age of Onset Lung cancer Mother No Known Problems Father Lung cancer Sister Family Status - Relation Status Age at Mother Father Sister Level of Service:01067 [place] OFFICE/OUTPATIENT ESTABLISHED MOD MDM 30 MIN Normal [facility] Office Visiton 05-26-2024 Follow-up visit [id number] Sanjana Madrigalty S 1965 F Date Provider Department Center 05/26/2024 BIJAN LAWLER RIAZ [place] Family History Problem Relation Age of Onset Lung cancer Mother No Known Problems Father Lung cancer Sister Family Status - Relation Status Age at Mother Father Sister Level of Service:67592 [place] OFFICE/OUTPATIENT NEW MODERATE MDM 45 MINUTES Normal [facility] Outside Colonoscopyon 2022 Outside Colonoscopy [id number] 0CD:127 Normal [facility] Reminderson 11-27-2022 Reminders - From: Na Hayes LPN To: N - Clinical; Sent: 11/27/2022 12:46:10 EST Show up: 10/25/2032 07:00:00 EST Subject: colonoscopy recall Due Date/Time: 11/25/2032 07:00:00 EST Reminder/Recall Patient is due for screening colonoscopy 11/25/2032. Normal [facility] Lab Reportson 11-24-2022 Lab Reports [id number] 0CD:127 Normal [facility] Covid-19 PCR [facility]on 10[facility]24 SARS-CoV-2 (COVID-19) RNA BECK+probe Ql (Unsp spec) Not detected Normal NOT DETECTED [facility] Comment on above: Result Comment: This test is not yet approved or cleared by the [place] FDA. When there are no FDA-approved or cleared tests available, and other criteria are met, FDA can make tests available under an emergency access mechanism called an Emergency Use Authorization (EUA). The EUA for this test is supported by the [place] of Health and Human Service's (HHS's) declaration [...] consistent with SARS-CoV-2. Performed By: #### C [facility] #### [facility] [address] [place] [address] Dr. Rich Cutler Consent for Procedure/Surger yon 10-07-2022 Consent for Procedure/Surgery [id number] 0CD:127 Normal [facility] Ambulatory Visit Summaryon 1 12-06-2021 [...] Allergic conjunctivitis Anticoagulated Kidney stones Normal [facility] VC VENOUS REFLUX NINO LMTon 1 12-02-2021 VC VENOUS REFLUX NINO LMT Patient: ABY MADRIGAL Exam Date: 10/02/2022 : 1965 Gender:F Ordering : DR KENDRA MURILLO . Admission #: [id number] Family : Order #: [id number] CLICK HERE TO VIEW EXAM RADIOLOGY REPORT [...] chronic thrombus visualized Compressibility: Normal Flow: Normal Fiction And Nonfiction Author: Dist/med calf 3.3mm with 0s reflux. Tech Note: Incompetent SFJ and GSV. Patent varicose vein mid/med calf 2.9mm with 0s reflux. Patent varicose vein prox/post calf 3.8mm with 0s reflux. Patent varicose vein dist/med thigh 3.8mm with 2.0s reflux. CONCLUSION: 1. Mild right and [id number] left great saphenous vein venous insufficiency with dilatation 2. Left saphenous popliteal junction reflux 3. Mild left anterior accessory saphenous vein venous insufficiency without dilatation 4. Small bilateral incompetent varicose veins Dictated by: Adelia Lezama MD on 10/02/2022 at 13:36 Approved by: Adelia Lezama MD on 10/02/2022 at 13:52 Normal [facility] ECHOCARDIO M/2D COMPLETEon 1 11-30-2021 ECHOCARDIO M/2D COMPLETE Patient: ABY MADRIGAL Exam Date: 09/30/2022 : 1965 Gender:F Ordering : DR KENDRA MURILLO . Admission #: [id number] Family : Order #: [id number] CLICK HERE TO VIEW EXAM ECHOCARDIOGRAM REPORT [...] M.D. on 09/30/2022 at 18:37 Normal [facility] BNPon 09-24-2022 Natriuretic peptide B (Bld) [Mass/Vol] 501.0 pg/mL Normal <=900.0 [facility] Comment on above: Performed By: #### C VDTB #### [facility] [address] [place] [address] Dr. Rich Cutler CBC AUTO DIFFon 09-24-2022 BASO # 0.1 103/ul Normal 0.0-0.1 [facility] Comment on above: Performed By: #### C VDTBH #### [facility] [address] [place] [address] Dr. Rich Cutler Basophils/100 WBC (Bld) 0.8 % Normal 0.2-2.0 [facility] Comment on above: Performed By: #### C VDTBH #### [facility] [address] [place] [address] Dr. Rich Cutler EO # 0.3 103/ul Normal 0.0-0.7 [facility] Comment on above: Performed By: #### C VDTBH #### [facility] [address] [place] [address] Dr. Rich Cutler Eosinophils/100 WBC (Bld) 3.4 % Normal 0.9-7.0 [facility] Comment on above: Performed By: #### C VDTBH #### [facility] [address] [place] [address] Dr. Rich Cutler Erythrocyte distribution width (RBC) [Ratio] 13.3 % Normal 11.0-15.0 [facility] Comment on above: Performed By: #### C VDTBH #### [facility] [address] [place] [address] Dr. Rich Cutler Hematocrit (Bld) [Volume fraction] 40.5 % Normal 36.0-48.0 [facility] Comment on above: Performed By: #### C VDTBH #### [facility] [address] [place] [address] Dr. Rich Cutler Hemoglobin (Bld) [Mass/Vol] 13.1 g/dL Normal 12.0-16.0 [facility] Comment on above: Performed By: #### C VDTBH #### [facility] [address] [place] [address] Dr. Rich Cutler IG # 0.02 10e3/ul Normal 0.00-0.03 [facility] Comment on above: Performed By: #### C VDTBH #### [facility] [address] [place] [address] Dr. Rich Cutler IG % 0.3 % Normal 0.0-0.5 [facility] Comment on above: Performed By: #### C VDTBH #### [facility] [address] [place] [address] Dr. Rich Cutler LYMPH # 2.7 103/ul Normal 1.2-3.8 [facility] Comment on above: Performed By: #### C VDTBH #### [facility] [address] [place] [address] Dr. Rich Cutler Lymphocytes/100 WBC (Bld) 35.4 % Normal 20.5-60.0 [facility] Comment on above: Performed By: #### C VDTBH #### [facility] [address] [place] [address] Dr. Rich Cutler MANUAL DIFF REQ NO Normal [facility] Comment on above: Performed By: #### C VDTBH #### [facility] [address] [place] [address] Dr. Rich Cutler MCH (RBC) [Entitic mass] 28.2 pg Normal 26.7-34.0 [facility] Comment on above: Performed By: #### C VDTBH #### [facility] [address] [place] [address] Dr. Rich Cutler MCHC (RBC) [Mass/Vol] 32.3 g/dL Normal 29.9-35.2 [facility] Comment on above: Performed By: #### C VDTBH #### [facility] [address] [place] [address] Dr. Rich Cutler MCV (RBC) [Entitic vol] 87.3 fL Normal 81.0-99.0 [facility] Comment on above: Performed By: #### C VDTBH #### [facility] [address] [place] [address] Dr. Rich Cutler MONO # 0.5 103/ul Normal 0.3-0.8 [facility] Comment on above: Performed By: #### C VDTBH #### [facility] [address] [place] [address] Dr. Rich Cutler Monocytes/100 WBC (Bld) 6.5 % Normal 1.7-12.0 [facility] Comment on above: Performed By: #### C VDTBH #### [facility] [address] [place] [address] Dr. Rich Cutler NEUT # 4.1 103/ul Normal 1.4-6.5 [facility] Comment on above: Performed By: #### C VDTBH #### [facility] [address] [place] [address] Dr. Rich Cutler Neutrophils/100 WBC (Bld) 53.6 % Normal 43.0-75.0 [facility] Comment on above: Performed By: #### C VDTBH #### [facility] [address] [place] [address] Dr. Rich Cutler Platelet mean volume (Bld) [Entitic vol] 10.3 fL Normal 9.5-13.5 [facility] Comment on above: Performed By: #### C VDTB #### [facility] [address] [place] [address] Dr. Rich Cutler PLT 283 103/ul Normal 150-450 [facility] Comment on above: Performed By: #### C VDTBH #### [facility] [address] [place] [address] Dr. Rich Cutler RBC 4.64 106/ul Normal 4.20-5.40 [facility] Comment on above: Performed By: #### C VDTBH #### [facility] [address] [place] [address] Dr. Rich Cutler WBC 7.6 103/ul Normal 4.0-11.0 [facility] Comment on above: Performed By: #### C VDTBH #### [facility] [address] [place] [address] Dr. Rich Cutler INSULINon 09-24-2022 Insulin 15.1 uIU/mL Normal 2.6-24.9 [facility] Comment on above: Performed By: #### C VDTBH #### [facility] [address] [place] [address] Dr. Rich Cutler PROF 14(COMP METB)on 022 Albumin [Mass/Vol] 3.5 g/dL Normal 3.4-5.0 [facility] Comment on above: Performed By: #### C VDTBH #### [facility] [address] [place] [address] Dr. Rich Cutler Albumin/Globulin [Mass ratio] 1.0 {ratio} Normal [facility] Comment on above: Performed By: #### C VDTBH #### [facility] [address] [place] [address] Dr. Rich Cutler ALP [Catalytic activity/Vol] 91 U/L Normal 46-116 [facility] Comment on above: Performed By: #### C VDTBH #### [facility] [address] [place] [address] Dr. Rich Cutler ALT [Catalytic activity/Vol] 47 U/L Normal 14-59 [facility] Comment on above: Performed By: #### C VDTB #### [facility] [address] [address] [address] Rich Cutler Anion gap [Moles/Vol] 11.7 mmol/L Normal [facility] Comment on above: Performed By: #### C VDTBH #### [facility] [address] [address] [address] Rich Cutler AST [Catalytic activity/Vol] 24 U/L Normal 15-37 [facility] Comment on above: Performed By: #### C VDTBH #### [facility] [address] [address] [address] Rich Cutler Bilirubin [Mass/Vol] 0.2 mg/dL Normal 0.2-1.0 [facility] Comment on above: Performed By: #### C VDTBH #### [facility] [address] [place] [address] Dr. Rich Cutler Calcium [Mass/Vol] 8.9 mg/dL Normal 8.5-10.1 [facility] Comment on above: Performed By: #### C VDTBH #### [facility] [address] [place] [address] Dr. Rich Cutler Chloride [Moles/Vol] 105 mmol/L Normal 98-107 [facility] Comment on above: Performed By: #### C VDTBH #### [facility] [address] [place] [address] Dr. Rich Cutler CO2 [Moles/Vol] 28.1 mmol/L Normal 21.0-32.0 [facility] Comment on above: Performed By: #### C VDTBH #### [facility] [address] [place] [address] Dr. Rich Cutler Creatinine [Mass/Vol] 1.13 mg/dL Critically high 0.55-1.02 [facility] Comment on above: Performed By: #### C VDTBH #### [facility] [address] [address] [address] Rich Cutler EGFR-AF SRI LANKAN 60 mL/min/1.73m2 Normal >=60 [facility] Comment on above: Performed By: #### C VDTBH #### [facility] [address] [address] [address] Rich Cutler EGFR-NON AF SRI LANKAN 49 mL/min/1.73m2 Critically low >=60 [facility] Comment on above: Performed By: #### C VDTBH #### [facility] [address] [address] [address] Rich Cutler Globulin (S) [Mass/Vol] 3.5 g/dL Normal [facility] Comment on above: Performed By: #### C VDTBH #### [facility] [address] [address] [address] Rich Cutler Glucose [Mass/Vol] 119 mg/dL Critically high 74-106 [facility] Comment on above: Performed By: #### C VDTBH #### [facility] [address] [place] [address] Dr. Rich Cutler Potassium [Moles/Vol] 3.8 mmol/L Normal 3.5-5.1 [facility] Comment on above: Performed By: #### C VDTBH #### [facility] [address] [place] [address] Dr. Rich Cutler Protein [Mass/Vol] 7.0 g/dL Normal 6.4-8.2 [facility] Comment on above: Performed By: #### C VDTBH #### [facility] [address] [place] [address] Dr. Rich Cutler Sodium [Moles/Vol] 141 mmol/L Normal 136-145 [facility] Comment on above: Performed By: #### C VDTBH #### [facility] [address] [place] [address] Dr. Rich Cutler Urea nitrogen [Mass/Vol] 16.0 mg/dL Normal 7.0-18.0 [facility] Comment on above: Performed By: #### C VDTBH #### [facility] [address] [address] [address] Rich Cutler Urea nitrogen/Creatinine [Mass ratio] 14.2 mg/mg Normal [facility] Comment on above: Performed By: #### C VDTBH #### [facility] [address] [address] [address] Rich Cutler TROPONIN, HIGH SENSITIVITYon 09-24-2022 HSTROP 10.6 pg/mL Normal 4.0-51.3 [facility] Comment on above: Result Comment: CUT- OFF POINTS HAVE BEEN ESTABLISHED BASED ON THE FOURTH UNIVERSAL DEFINITIONS OF MYOCARDIAL INFARCTION. THE UPPER REFERENCE LIMIT (URL) OF TROPONIN, DEFINED THE 99TH PERCENTILE OF cTnI DISTRIBUTION IN A REFERENCE POPULATION, HAS BEEN CONFIRMED THE DECISION THRESHOLD FOR IN DIAGNOSIS. Performed By: #### C VDTBH #### [facility] [address] [place] [address] Dr. Rich Cutler XR CHEST 1 Von [...] UMM HUMPHRIES Date: 2022-09-24 04:08 Normal [facility] CBC AUTO DIFFon 09-23-2022 BASO # 0.1 103/ul Normal 0.0-0.1 [facility] Comment on above: Performed By: #### C BC #### [facility] [address] [place] [address] Dr. Rich Cutler Basophils/100 WBC (Bld) 0.8 % Normal 0.2-2.0 [facility] Comment on above: Performed By: #### C BC #### [facility] [address] [place] [address] Dr. Rich Cutler EO # 0.2 103/ul Normal 0.0-0.7 [facility] Comment on above: Performed By: #### C BC #### [facility] [address] [place] [address] Dr. Rich Cutler Eosinophils/100 WBC (Bld) 3.5 % Normal 0.9-7.0 [facility] Comment on above: Performed By: #### C BC #### [facility] [address] [place] [address] Dr. Rich Cutler Erythrocyte distribution width (RBC) [Ratio] 13.4 % Normal 11.0-15.0 [facility] Comment on above: Performed By: #### C BC #### [facility] [address] [place] [address] Dr. Rich Cutler Hematocrit (Bld) [Volume fraction] 42.3 % Normal 36.0-48.0 [facility] Comment on above: Performed By: #### C BC #### [facility] [address] [place] [address] Dr. Rich Cutler Hemoglobin (Bld) [Mass/Vol] 13.4 g/dL Normal 12.0-16.0 [facility] Comment on above: Performed By: #### C BC #### [facility] [address] [place] [address] Dr. Rich Cutler IG # 0.03 10e3/ul Normal 0.00-0.03 [facility] Comment on above: Performed By: #### C BC #### [facility] [address] [place] [address] Dr. Rich Cutler IG % 0.5 % Normal 0.0-0.5 [facility] Comment on above: Performed By: #### C BC #### [facility] [address] [place] [address] Dr. Rich Cutler LYMPH # 2.9 103/ul Normal 1.2-3.8 [facility] Comment on above: Performed By: #### C BC #### [facility] [address] [place] [address] Dr. Rich Cutler Lymphocytes/100 WBC (Bld) 44.0 % Normal 20.5-60.0 [facility] Comment on above: Performed By: #### C BC #### [facility] [address] [place] [address] Dr. Rich Cutler MANUAL DIFF REQ NO Normal [facility] Comment on above: Performed By: #### C BC #### [facility] [address] [place] [address] Dr. Rich Cutler MCH (RBC) [Entitic mass] 28.4 pg Normal 26.7-34.0 [facility] Comment on above: Performed By: #### C BC #### [facility] [address] [place] [address] Dr. Rich Cutler MCHC (RBC) [Mass/Vol] 31.7 g/dL Normal 29.9-35.2 [facility] Comment on above: Performed By: #### C BC #### [facility] [address] [place] [address] Dr. Rich Cutler MCV (RBC) [Entitic vol] 89.6 fL Normal 81.0-99.0 [facility] Comment on above: Performed By: #### C BC #### [facility] [address] [place] [address] Dr. Rich Cutler MONO # 0.4 103/ul Normal 0.3-0.8 [facility] Comment on above: Performed By: #### C BC #### [facility] [address] [place] [address] Dr. Rich Cutler Monocytes/100 WBC (Bld) 6.6 % Normal 1.7-12.0 [facility] Comment on above: Performed By: #### C BC #### [facility] [address] [place] [address] Dr. Rich Cutler NEUT # 2.9 103/ul Normal 1.4-6.5 [facility] Comment on above: Performed By: #### C BC #### [facility] [address] [place] [address] Dr. Rich Cutler Neutrophils/100 WBC (Bld) 44.6 % Normal 43.0-75.0 [facility] Comment on above: Performed By: #### C BC #### [facility] [address] [place] [address] Dr. Rich Cutler Platelet mean volume (Bld) [Entitic vol] 11.0 fL Normal 9.5-13.5 [facility] Comment on above: Performed By: #### C BC #### [facility] [address] [place] [address] Dr. Rich Cutler PLT 272 103/ul Normal 150-450 [facility] Comment on above: Performed By: #### C BC #### [facility] [address] [place] [address] Dr. Rich Cutler RBC 4.72 106/ul Normal 4.20-5.40 [facility] Comment on above: Performed By: #### C BC #### [facility] [address] [place] [address] Dr. Rich Cutler WBC 6.5 103/ul Normal 4.0-11.0 [facility] Comment on above: Performed By: #### C BC #### [facility] [address] [place] [address] Dr. Rich Cutler FREE THYROXINE INDEX T7on FTI 2.16 Normal 1.30-4.50 [facility] Comment on above: Performed By: #### L IPID, TSH, T7, CMP #### [facility] [address] [place] [address] Dr. Rich Cutler T3U 30.0 % Normal 30.0-39.0 [facility] Comment on above: Performed By: #### L IPID, TSH, T7, CMP #### [facility] [address] [place] [address] Dr. Rich Cutler T4 [Mass/Vol] 7.20 ug/dL Normal 4.80-13.90 [facility] Comment on above: Performed By: #### L IPID, TSH, T7, CMP #### [facility] [address] [place] [address] Dr. Rich Cutler GLYCOHEMOGLOBIN A1Con 2021 ADA RECOMMENDATION SEE BELOW Normal [facility] Comment on above: Result Comment: ADA RECOMMENDED LIMIT 4.0 - 6.0 ADA THERAPEUTIC TARGET < 7.0 ACTION SUGGESTED > 7.0 Performed By: #### A 1C #### [facility] [address] [address] [address] Rich Cutler Glucose [Mass/Vol] 128 mg/dL Normal [facility] Comment on above: Performed By: #### A 1C #### [facility] [address] [place] [address] Dr. Rich Cutler HbA1c (Bld) [Mass fraction] 6.1 % Normal 4.5-6.2 [facility] Comment on above: Performed By: #### A 1C #### [facility] [address] [place] [address] Dr. Rich Cutler IRONon 09-23-2022 Iron [Mass/Vol] 64.0 ug/dL Normal 50.0-170.0 [facility] Comment on above: Performed By: #### C VDTBH #### [facility] [address] [place] [address] Dr. Rich Cutler LIPID PROFILEon 09-23-2022 CHOL-HDL RATIO NORM SEE BELOW Normal [facility] Comment on above: Result Comment: 3.3 - 4.4 LOW RISK 4.4 - 7.1 AVERAGE RISK 7.1 - 11.0 MODERATE RISK >11.0 HIGH RISK Performed By: #### L IPID, TSH, T7, CMP #### [facility] [address] [place] [address] Dr. Rich Cutler Cholesterol [Mass/Vol] 237 mg/dL Critically high <=200 [facility] Comment on above: Performed By: #### L IPID, TSH, T7, CMP #### [facility] [address] [place] [address] Dr. Rich Cutler Cholesterol in HDL [Mass/Vol] 44 mg/dL Normal 40-60 [facility] Comment on above: Performed By: #### L IPID, TSH, T7, CMP #### [facility] [address] [place] [address] Dr. Rich Cutler Cholesterol in LDL [Mass/Vol] 172.2 mg/dL Normal [facility] Comment on above: Performed By: #### L IPID, TSH, T7, CMP #### [facility] [address] [address] [address] Rich Cutler Cholesterol.total/C holesterol in HDL [Mass ratio] 5.4 {ratio} Normal [facility] Comment on above: Performed By: #### L IPID, TSH, T7, CMP #### [facility] [address] [place] [address] Dr. Rich Cutler HDL NORMAL > or = 60 mg/dl - LO W CARDIOVASCULAR RISK <40 mg/dl - HIGH CARDIOVASCULAR RISK Normal [facility] Comment on above: Performed By: #### L IPID, TSH, T7, CMP #### [facility] [address] [address] [address] Rich Cutler LDL CALC NORMAL SEE BELOW Normal [facility] Comment on above: Result Comment: <100 mg/dl OPTIMAL 100 - 129 mg/dl NEAR OR ABOVE OPTIMAL 130 - 159 mg/dl BORDERLINE HIGH 160 - 189 mg/dl HIGH >190 mg/dl VERY HIGH Performed By: #### L IPID, TSH, T7, CMP #### [facility] [address] [place] [address] Dr. Rich Cutler Triglyceride [Mass/Vol] 104 mg/dL Normal <=150 [facility] Comment on above: Performed By: #### L IPID, TSH, T7, CMP #### [facility] [address] [place] [address] Dr. Rich Cutler VLDL CALC 20.8 mg/dL Normal [facility] Comment on above: Performed By: #### L IPID, TSH, T7, CMP #### [facility] [address] [place] [address] Dr. Rich Cutler PROF 14(COMP METB)on 022 Albumin [Mass/Vol] 3.5 g/dL Normal 3.4-5.0 [facility] Comment on above: Performed By: #### L IPID, TSH, T7, CMP #### [facility] [address] [place] [address] Dr. Rich Cutler Albumin/Globulin [Mass ratio] 0.9 {ratio} Normal [facility] Comment on above: Performed By: #### L IPID, TSH, T7, CMP #### [facility] [address] [address] [address] Rich Cutler ALP [Catalytic activity/Vol] 93 U/L Normal 46-116 [facility] Comment on above: Performed By: #### L IPID, TSH, T7, CMP #### [facility] [address] [address] [address] Rich Cutler ALT [Catalytic activity/Vol] 44 U/L Normal 14-59 [facility] Comment on above: Performed By: #### L IPID, TSH, T7, CMP #### [facility] [address] [place] [address] Dr. Rich Cutler Anion gap [Moles/Vol] 8.5 mmol/L Normal [facility] Comment on above: Performed By: #### L IPID, TSH, T7, CMP #### [facility] [address] [place] [address] Dr. Rich Cutler AST [Catalytic activity/Vol] 26 U/L Normal 15-37 [facility] Comment on above: Performed By: #### L IPID, TSH, T7, CMP #### [facility] [address] [address] [address] Rich Cutler Bilirubin [Mass/Vol] 0.3 mg/dL Normal 0.2-1.0 [facility] Comment on above: Performed By: #### L IPID, TSH, T7, CMP #### [facility] [address] [address] [address] Rich Cutler Calcium [Mass/Vol] 9.0 mg/dL Normal 8.5-10.1 [facility] Comment on above: Performed By: #### L IPID, TSH, T7, CMP #### [facility] [address] [address] [address] Rich Cutler Chloride [Moles/Vol] 106 mmol/L Normal 98-107 [facility] Comment on above: Performed By: #### L IPID, TSH, T7, CMP #### [facility] [address] [address] [address] Rich Cutler CO2 [Moles/Vol] 31.0 mmol/L Normal 21.0-32.0 [facility] Comment on above: Performed By: #### L IPID, TSH, T7, CMP #### [facility] [address] [address] [address] Rich Cutler Creatinine [Mass/Vol] 1.11 mg/dL Critically high 0.55-1.02 [facility] Comment on above: Performed By: #### L IPID, TSH, T7, CMP #### [facility] [address] [place] [address] Dr. Rich Cutler EGFR-AF SRI LANKAN >60 Normal >=60 [facility] Comment on above: Performed By: #### L IPID, TSH, T7, CMP #### [facility] [address] [place] [address] Dr. Rich Cutler EGFR-NON AF SRI LANKAN 50 mL/min/1.73m2 Critically low >=60 [facility] Comment on above: Performed By: #### L IPID, TSH, T7, CMP #### [facility] [address] [place] [address] Dr. Rich Cutler Globulin (S) [Mass/Vol] 3.7 g/dL Normal [facility] Comment on above: Performed By: #### L IPID, TSH, T7, CMP #### [facility] [address] [place] [address] Dr. Rich Cutler Glucose [Mass/Vol] 121 mg/dL Critically high 74-106 [facility] Comment on above: Performed By: #### L IPID, TSH, T7, CMP #### [facility] [address] [place] [address] Dr. Rich Cutler Potassium [Moles/Vol] 4.5 mmol/L Normal 3.5-5.1 [facility] Comment on above: Performed By: #### L IPID, TSH, T7, CMP #### [facility] [address] [place] [address] Dr. Rich Cutler Protein [Mass/Vol] 7.2 g/dL Normal 6.4-8.2 [facility] Comment on above: Performed By: #### L IPID, TSH, T7, CMP #### [facility] [address] [address] [address] Rich Cutler Sodium [Moles/Vol] 141 mmol/L Normal 136-145 [facility] Comment on above: Performed By: #### L IPID, TSH, T7, CMP #### [facility] [address] [address] [address] Rich Cutler Urea nitrogen [Mass/Vol] 16.0 mg/dL Normal 7.0-18.0 [facility] Comment on above: Performed By: #### L IPID, TSH, T7, CMP #### [facility] [address] [address] [address] Rich Cutler Urea nitrogen/Creatinine [Mass ratio] 14.4 mg/mg Normal [facility] Comment on above: Performed By: #### L IPID, TSH, T7, CMP #### [facility] [address] [address] [address] Rich Cutler TSHon 09-23-2022 TSH 3.915 uIU/mL Critically high 0.358-3.740 [facility] Comment on above: Performed By: #### L IPID, TSH, T7, CMP #### [facility] [address] [place] [address] Dr. Rich Cutler Physician Referralon 022 Physician Referral [phone] [id number] Normal [facility] Lipid Panelon 10-07-2021 Cholesterol [Mass/Vol] 205 mg/dL High 140-200 [facility] Comment on above: Result Comment: Chol less than 200 mg/dl low risk Chol 201-239 mg/dl borderline risk Chol 240 mg/dl and greater high risk Performed By: #### L IPID, [id number], TSH3 wRFLX #### [address] Cholesterol in HDL [Mass/Vol] 25 mg/dL Low 35-85 [facility] Comment on above: Result Comment: HDL CHOL ATP-III CLASSIFICATION Cardiovascular Risk HDL > or equal to 60 mg/dL LOW HDL < 40 mg/dL HIGH Performed By: #### L IPID, [id number], TSH3 wRFLX #### [facility] [address] Cholesterol.total/C holesterol in HDL [Mass ratio] 8.2 {ratio} Normal <5.0 [facility] Comment on above: Performed By: #### L IPID, [id number], TSH3 wRFLX #### [facility] [address] LDL Cholesterol,Calcula coby 160 mg/dL High 0-100 [facility] Comment on above: Result Comment: LDL ATP III CLASSIFICATION LDL less than 100 mg/dL Optimal LDL 100-129 mg/dL Near or above optimal LDL 130-159 mg/dL Borderline high LDL 160-189 mg/dL High LDL greater than 189 mg/dL Very high Performed By: #### L IPID, [id number], TSH3 wRFLX #### [address] Triglyceride w/Reflex 100 mg/dL Normal 35-149 [facility] Comment on above: Result Comment: TRIG ATP III CLASSIFICATION TRIG less than 150 mg/dL Normal TRIG 150-199 mg/dL Borderline high TRIG 200-500 mg/dL High TRIG greater than 500 mg/dL Very high Standard traceable to the Center for Disease Conrtrol and Prevention (CDC) test method. Performed By: #### L IPID, [id number], TSH3 wRFLX #### [facility] [address] [place] [address] VLDL CHOLESTEROL 20 mg/dL Normal [facility] Comment on above: Performed By: #### L IPID, [id number], TSH3 wRFLX #### [facility] [address] Thyroid Stim Hormone w/Rflxo n 10-07-2021 Thyroid Stim Hormone w/Rflx 3.27 u[iU]/mL Normal 0.45-5.33 [facility] Comment on above: Performed By: #### L IPID, [id number], TSH3 wRFLX #### [facility] [address] [place] [address] [facility] Vitamin D 25 Hydroxy Totalon 10-07-2021 Vitamin D 25 Hydroxy Total 26.5 ng/mL Low 30-100 [facility] Comment on above: Result Comment: JACKELINE MIN D STATUS 25(OH)VITAMIN D RANGE (ng/mL) Deficient <20 Insufficient 20 to <30 Sufficient 30 to 100 Reference: Lanny MF,Gino NC, Dyan VALENZUELA, et al. Evaluation,treatment, and prevention of vitamin D deficiency; an Endocrine Society clinical practice guideline. JCEM. 2010; 96(7):1911-30. PERFORMED BY: [place] [address] PATHOLOGIST PARAMEDICAL AIDE SILVESTRE SCHULER M.D. Performed By: #### L IPID, [id number], TSH3 wRFLX #### [id number] [facility] Vital Signs Date Time Vital Sign Value Performing Clinician Deidre gagnon 10-06-2022 15:36-0500 Blood Pressure Location Umm GEORGIEL [facility] [place] 10-06-2022 15:36-0500 Diastolic blood pressure 86 mm[Hg] Umm JACQUESL [facility] [place] 10-06-2022 15:36-0500 Heart rate 72 /min Umm JACQUESL [facility] [place] 10-06-2022 15:36-0500 Respiratory rate 16 /min Umm JACQUESL [facility] [place] 10-06-2022 15:36-0500 Systolic blood pressure 126 mm[Hg] Umm JACQUESL [facility] [place] Encounters Encounter Date Encounter Type Care Provider Facility Start: 07-20-2024 ambulatory RICHA Dunham [facility] Start: 07-18-2024 ambulatory FENG CHRISTIE [facility] Start: 07-18-2024 End: 07-18-2024 Emergency department patient visit HERMINIA LI [facility] Start: 07-18-2024 End: 07-18-2024 ambulatory MESERET MAC [facility] Start: 07-11-2024 Evaluation and manag ement of inpatient [facility] Start: 07-11-2024 Evaluation and manag ement of inpatient [facility] Start: 07-11-2024 Emergency department patient visit FEDERICA ANDERSON [facility] Start: 07-11-2024 End: 07-12-2024 [facility]: [facility]-10[facility] End: 07-10-2024 ambulatory [facility] Start: 06-30-2024 Evaluation and manag ement of inpatient [facility] Start: 06-30-2024 Evaluation and manag ement of inpatient [facility] Start: 06-29-2024 End: 07-01-2024 Evaluation and management of inpatient KNEDRA MURILLO [facility] Start: 06-21-2024 End: [facility]: 05-26-[facility]24 End: 05-26-2024 ambulatory [facility] Start: 11-26-2022 Encounter for preprocedural laboratory examination DR UMM MARTÍNEZ . [facility] [facility] Start: 11-25-2022 End: 11-26-2022 ambulatory Umm MARTÍNEZ Facility:CD:[id number] Start: 11-20-2022 End: 11-21-[address] UMM MARTÍNEZ . Facility: Start: 11-20-2022 End: 11-21-2022 Encounter for preprocedural laboratory examination DR UMM MARTÍNEZ . Facility: Start: 10-06-2022 End: 10-07-2022 ambulatory Umm MARTÍNEZ Facility:[facility] Start: 10-06-2022 End: 10-06-2022 Patient encounter procedure Umm MARTÍNEZ [facility] [place] Start: 10-02-2022 End: 10-03-[address] KENDRA MURILLO . Facility:[facility] Start: 09-30-2022 End: 10-01-[address] KENDRA MURILLO . Facility:[facility] Start: 09-28-2022 Encounter for genera l adult medical examination without abnormal findings DR KENDRA MURILLO . [facility] Start: 09-24-2022 End: 09-24-[address] SYBIL [...] mRNA BNT-162b2 vax Umm NILL [facility] [place] 03-11-2021 SARS-CoV-2 (COVID-19 ) mRNA BNT-162b2 vax Umm NILL [facility] [place] Payers Date Payer Category Payer Medicaid [id number] 1965 Unknown [id number] 2.16.8 [id number] 1965 Unknown [id number] 2.16.8 [id number] 1965 Unknown [id number] 2.16.84 [id number] 1965 Unknown [id number] 2.16.84 [id number] 1965 Unknown [id number] 2.16.84 [id number] 1965 Unknown [id number] 2.16.84 [id number] 1964 Unknown [id number] 2.16.84 [id number] 1965 Unknown [id number] 2.16.84 [id number] 1965 Unknown [id number] 2.16.84 [id number] 1960 Self-pay [id number] 1960 Unknown [id number] Social History Date Type Detail Facility Start: 10-06-2022 Tobacco smoking status Ex-smoker (fi nding) [facility] [place] Tobacco smoking status Never [facility] [place] Sex Assigned At Female [facility] Functional Status Date Assessment Result Facility 10-06-2022 [...] Age: 59 y.o. : 1965 Account No.: [id number] Referring physician: Dr. Jarocho Saldaña Chief complaint: RML nodule HPI Aby Madrigal is a 59 y.o. female with hypertension, CAD status post PCI recently in June 2024,, cigarette smoking who is presenting to IP clinic via telemedicine as a new patient after being referred by Dr. Jarocho Saldaña. Patient reports recent admission to [facility] for hypertensive emergency. This prompted a CT of the chest which was positive for right middle lobe nodule. She then underwent PCI here at [facility] in June. She is currently on aspirin [...] PFTs on file. CTA chest 04/21/2024 at [facility]: Right middle lobe approximately 1 cm spiculated nodule appreciated Subsequent PET CT 2024 at [facility]: Right middle lobe nodule is faintly PET avid Past Medical History: Diagnosis Date Abnormal ECG Diabetes mellitus (CMS/HCC) Hyperlipidemia Hypertension Obstructive sleep apnea Panic attacks Stroke ([facility]/HCC) Past Surgical History: Procedure Laterality Date CEREBRAL [...] alcohol. She reports (more content not included)... [facility] 07-18-2024 Note REASON FOR VISIT + [...] metoprolol - CT A/P Jun 2019 in [place], [place] performed for abd pain, incidentally detected [...] History: Diagnosis Date Abnormal ECG Diabetes mellitus ([facility]) Hyperlipidemia Hypertension Obstructive sleep apnea Panic attacks Stroke ([facility]) Past Surgical History: Procedure Laterality Date [...] Rfl: carvedilol (C (more content not included)... [facility] 07-18-2024 Note 07/18/24 1001 Referral Data Referral Source pack worker supervisor Referral Reason Information Patient Information Primary Caregiver Self Activities of Daily Living Assistive Device Not applicable Living Arrangement (Current/Prior to Hospitalization) Private residence Behavior Oriented Discharge Planning Support Systems Children;Family members Type of Residence Private residence Patient's goal for discharge home Patient recently discharged from [facility] to home. Resides at home alone. Discharge plan is home. [facility] 07-18-2024 Note Patient sent to ED f or hypotension and dizziness/lightheadedness [facility] 07-12-2024 Note Hospital Medicine Discharge Summary Final Discharge Diagnosis: NSTEMI Admission Diagnosis: Hypokalemia [E87.6] NSTEMI (non-ST elevated myocardial infarction) (CMS/HCC) [I21.4] Hypertensive urgency [I16.0] Adenoma of left adrenal gland [D35.02] Resistant hypertension [I1A.0] Atherosclerosis of mille lacs coronary artery of mil[place]acs heart without angina pectoris [I25.10] Coronary artery disease involving mil[place] lacs coronary artery of mil[place]acs heart with unstable angina pectoris (CMS/HCC) [I25.110] Type 2 diabetes mellitus without complication, without long-term current use of insulin ([facility]) [E11.9] Hospital course: 59yoF with CAD s/p LAD SARKIS 11 days ago who was admitted to [facility] on 07/11 for chest pain. patient initially presented to [facility] for uncomfortable feeling in her chest and was found to have elevated troponins and new ischemic changes on EKG. Infusion and cardiology was consulted transferred to [facility] for further evaluation. Initially the patient had blood pressures up to 192/65 for which home medications were restarted. Troponins at [facility] were negative and there were no EKG changes concerning for ischemia. Echo was performed which showed EF 70 to 75%. she was cleared from cardiology for discharge and had resolved. Surgical, Invasive or Diagnostic Procedures Done During Admission: None Consultations During Admission: Cardiology Dear Dr. Lidia MD, [facility] is advised to follow up with you [...] Center 07/18/2024 8:20 AM Feng Christie MD [facility] ENDOCR [facility] 07/20/2024 1:00 PM Richa Viramontes MD [facility] ONC [facility] 09/05/2024 1:00 PM Bijan Mitchell MD [facility] [place] [facility] Your medication list START taking these [...] medications were sent to [facility]/pharmacy #[id number] [place], [place] - [address] [facility] [facility] [address] isosorbide mononitrate ER 60 mg 24 hr [...] activity In process (more content not included)... [facility] 07-11-2024 Note 07/11/24 1817 Financial Resource [...] place to sleep or slept in a jail (including now)? N Transportation Needs In the [...] than 3 How often do you attend holiness or alevism services? Never Do you belong to any clubs or organizations such as holiness groups, unions, fraternal or athletic groups, or [...] off services in your home? No 07/11/24 2042 Referral Data Referral Source pack worker supervisor Referral Reason Psychosocial assessment Patient Information Primary Caregiver Self Accompanied by/Relationship Daughter (Rosita); Yqyjkmoe-eq-tgi (Yesy) Activities of Daily Living Assistive Device Not applicable Living Arrangement (Current/Prior to Hospitalization) Private residence (Lives at home by herself) Ambulation Independent Dressing Independent Feeding Independent Behavior Oriented (A&Ox4) Communication Can write;Talks;Understands speaking;Understands Romansh;Reads Income Information Income Source Unemployed (receives survivor benefits) Discharge Planning Support Systems Children;Family members (daughter, ykhdqewe-hq-ozy, son) Type of Residence Private residence Will patient need Precert for Post Acute needs? No Patient's goal for discharge Home Does the patient need discharge transport arranged? No Completed social work assessment and SDoH screening. Patient was A&Ox4 at this time. Patient's daughter, Rosita, and patient's kcerzsxw-tw-atp, Yesy, were currently present at bedside. Patient reported that she lives at home by herself and she identified her support system as her daughter, Rosita, her ggtlvdes-au-yat, Yesy, and her son, Elie. Patient endorsed [...] any alcohol consumption or recreational drug use. [facility] 07-11-2024 Note Hospital Medicine History and Physical 07/11/2024 12:19 PM THE HOSPITALIST TEAM PREFERS TO USE [employer] CHAT FOR COMMUNICATION 7AM-7PM. IF I DO NOT RESPOND WITHIN 15 MINUTES, PLEASE PAGE ME/CALL THROUGH THE UNDERGRADUATE ADVISOR. FROM 7PM-7AM, PLEASE PAGE [phone](COVR) Chief Complaint Chief Complaint Patient presents with [...] s/p stent placement 11 days ago at [facility] presented to ER as a transfer from [facility] for NSTEMI. Patient states that last night [...] Noted Hypokalemia 07/11/2024 Coronary artery disease involving mille lacs coronary artery of mille [place]acs heart with unstable angina pectoris ([facility]) 07/11/2024 Anxiety 06/30/2024 Type 2 diabetes mellitus without complication, without long-term current use of insulin ([facility]) 06/30/2024 Chest pain 06/30/2024 Elevated troponin 06/30/2024 Hypertensive urgency 06/30/2024 Hypomagnesemia 06/30/2024 QURESHI (dyspnea on exertion) 05/26/2024 Atherosclerosis of mille lacs coronary artery of mille lacs heart without angina pectoris 05/26/2024 Hyperlipidemia 05/26/2024 Murmur, heart 05/26/2024 Sepsis ([facility]) 07/14/2019 BV (bacterial vaginosis) 10/18/2017 GERD (gastroesophageal reflux disease) 10/18/2017 Essential hypertension 10/18/2017 TIA (transient ischemic attack) 10/18/2017 NSTEMI (non-ST elevated myocardial infarction) ([facility]) 06/29/2024 Assessment and Plan NSTEMI CAD, s/p [...] for GI prophylaxis (more content not included)... [facility] 07-10-2024 Note [place] [facility] Note Reason for cardiology [...] Take 1 tablet (more content not included)... [facility] 07-01-2024 Note Hospital Medicine Discharge Summary [...] hypertension, IBS presents a direct mission from [facility] with a chief complaint of chest pain. [...] seen on her EKG. She went to [facility] for the symptoms. Labs were completed showing [...] on a heparin drip and transferred to [facility] for likely cardiac cath. # NSTEMI [...] - Continue metformin. Dear Dr. Lidia MD, [facility] is advised to follow up with you within 1-2 weeks. Items to follow up in ambulatory setting: None Follow-up with: Cardiology and Nephrology Scheduled appointments: Future Appointments Date Time Provider Department Center 07/10/2024 2:20 PM Bijan Mitchell MD [facility] Your medication list START [...] medications were sent to [facility]/pharmacy #[id number] [address] carvedilol 25 mg tablet cloNIDine 0.1 mg [...] Results from last 7 days Lab Units 07/01/2462606/30/24 0718 06/29/24 2344 SODIUM mmol/L 141 143 [...] days Lab Units (more content not included)... [facility] 07-01-2024 Note [facility] CARDIOLOGY INPAT IENT PROGRESS NOTE Reason for follow up: NSTEMI Subjective Aby Madrigal, a 59 y.o. female patient, is transferred from [facility] for continuity of care. Patient reports that 3 days ago, she woke up in the mid of the night with indigestion, and a feeling fullness, but no pressure like chest pain. She presented to [facility], where she was found to be [...] 0.56 06/29/2024 E (more content not included)... [facility] 06-30-2024 Note Patient: Aby antony Procedure Information Date/Time: 06/30/24 1600 Procedure: Coronary angiography (Bilateral) Location: [facility] (Cath) Providers: Brunilda Cuellar [...] Plan discussed with attending. Additional Equipment Requests [facility] 06-30-2024 Note 06/30/24 1446 Referral Data Referral Source pack worker supervisor Referral Reason Follow up;Information Patient Information Primary Caregiver Self Accompanied by/Relationship daughters at bedside Activities of Daily Living Assistive Device Not applicable Living Arrangement (Current/Prior to Hospitalization) Private residence (three to four stairs) Ambulation Independent Dressing Independent Feeding Independent Behavior Oriented Communication Talks;Understands speaking;Understands Romansh Discharge Planning Support Systems Children (daughters will [...] questions for social work at this time. [facility] 06-30-2024 Note 06/30/24 1431 Admission Assessment [...] Not Interested Does the patient have a egg caser assigned to them through their insurance? No [...] to send link and activate MyChart? No [facility] 06-30-2024 Note Case was discussed w ith the SALVADOR on 06/29/2024. I agree with the history, physical, assessment, and plan of care. I discussed the findings and therapeutic plan. I agree with the documentation, except for any updates below. Maurice Nogueira MD [facility] 06-30-2024 Note Hospital Medicine History and Physical 06/30/2024 1:15 AM THE HOSPITALIST TEAM PREFERS TO USE [employer] CHAT FOR COMMUNICATION 7AM-7PM. IF I DO NOT RESPOND WITHIN 15 MINUTES, PLEASE PAGE ME/CALL THROUGH THE UNDERGRADUATE ADVISOR. FROM 7PM-7AM, PLEASE PAGE [phone](COVR) Chief Complaint [facility] History of Present Illness Aby Madrigal is an 59 y.o. female who came from home with past medical history of anxiety, DM2, hypertension, IBS presents a direct mission from [facility] with a chief complaint of chest pain. [...] seen on her EKG. She went to [facility] for the symptoms. Labs were completed showing [...] on a heparin drip and transferred to [facility] for likely cardiac cath. Review of [...] complication, without long-term current use of insulin ([facility]) 06/30/2024 Chest pain 06/30/2024 Elevated troponin 06/30/2024 Hypertensive urgency 06/30/2024 QURESHI (dyspnea on exertion) 05/26/2024 Atherosclerosis of mille lacs coronary artery of mil[place] lacs heart without angina pectoris 05/26/2024 Hyperlipidemia 05/26/2024 Murmur, heart 05/26/2024 Sepsis ([facility]) 07/14/2019 BV (bacterial vaginosis) 10/18/2017 GERD (gastroesophageal reflux disease) 10/18/2017 Essential hypertension 10/18/2017 TIA (transient ischemic attack) 10/18/2017 Assessment and Plan Aby Madrigal is an 59 y.o. female who came from home with past medical history of anxiety, DM2, hypertension, IBS presents a direct mission from [facility] with a chief complaint of chest pain. #Chest pain #Elevated troponin Troponin 0.1, will continue to trend -Patient continues to have mild chest discomfort upon arrival -Continue heparin drip -CXR negative for acute process at OSH -EKG showing normal sinus rhythm -N.p.o. for possible right and left cardiac cath in a.m. -Patient with new diastolic dysfunction on echoc (more content not included)... [facility] 06-21-2024 Note [place] [facility] Subjective Aby Madrigal is a 59 y.o. year old female patient being seen for follow up [facility] per Dr. Murillo. She has not [...] attack) QURESHI (dyspnea on exertion) Atherosclerosis of mille lacs coronary artery of mil[place] lacs heart without angina pectoris Hyperlipidemia Murmur, heart [...] Judgment: Judgment no (more content not included)... [facility] 05-26-2024 Note [place] [facility] Note Reason for cardiology [...] PSYCH: appropriate mood, (more content not included)... [facility] 11-25-2022 Note OPERATIVE NOTE OPERATION DATE: [...] 10 years. CC: Kendra Murillo M.D. [facility] 10-11-2022 Note Chief Complaint consultation for colonoscopy [...] 1 tab(s), Oral, (more content not included)... [facility] Comment on above: Result Comment: Elec tronically Signed By: DIPESH BUCKNER, Umm Valente.germania\Date and Time Signed: 10/11/22 11:01 EST Evaluation + Plan note No data available for this section [facility] [place] [facility] Discharge instructions No data available for [...] section and content) DATE CREATED AUTHOR 12/17/2021 [facility] DATE CREATED AUTHOR AUTHOR'S ORGANIZ ATION 12/16/2022 [facility] DATE CREATED AUTHOR AUTHOR'S ORGANIZ ATION 03/26/2023 [facility] DATE CREATED AUTHOR AUTHOR'S ORGANIZ ATION 07/24/2024 [facility] Patient Care team informatio n (unrecognized section and content) Personnel Name: Kendra Murillo MD Address: Address: [address] [place] [address] Personnel Name: Kendra Murillo MD Address: Address: [address] [place] [address] FOR RECORDS PERTAINING TO PATIENTS WHO ARE [...] BE BASED ON THE PRIMARY CLINICAL RECORDS. [employer] [facility]. provides no warranty or guarantee of the accuracy or completeness of information in this document.
[2024-07-28 12:10] LABS: Hematocrit 40.3 % (36.0-48.0); Hemoglobin 12.9 g/dL (12.0-16.0); Mean Corpuscular Hemoglobin 27.2 pg (26.7-34.0); Mean Platelet Volume 9.7 fL (9.5-13.5); Platelet Count 277 10^3/uL (150-450); Red Blood Count 4.74 10^6/uL (4.20-5.40); Red Cell Distribution Width 14.3 % (11.0-15.0); White Blood Count 9.8 10^3/uL (4.0-11.0)
[2024-07-28 12:23] LABS: Alanine Aminotransferase 57 U/L (14-59); Albumin Level 3.7 g/dL (3.4-5.0); Alkaline Phosphatase 87 U/L (46-116); Anion Gap 10.5; Aspartate Amino Transferase 35 U/L (15-37); BUN Creatinine Ratio 10.7; Bilirubin Total 0.5 mg/dL (0.2-1.0); Calcium 9.2 mg/dL (8.5-10.1); Carbon Dioxide 28.7 mmol/L (21.0-32.0); Chloride 100 mmol/L (98-107); Estimated GFR (African America 35 (>=60); Estimated GFR (Non-African Ame 29 (>=60); Globulin 3.7 g/dL; Glucose 140 mg/dL (74-106); Potassium 3.2 mmol/L (3.5-5.1); Sodium 136 mmol/L (136-145); Total Protein 7.4 g/dL (6.4-8.2)
[2024-07-28 12:24] LABS: Anisocytosis 1+; Atypical Lymphocytes Abs Man 0.39; Basophils Abs Manual 0.09 10^3/uL (0.00-0.10); Eosinophils Absolute Manual 0.19 10^3/uL (0.00-0.70); Lymphocytes Absolute Manual 1.07 10^3/uL (1.20-3.80); Microcytosis 1+; Monocytes Absolute Manual 0.68 10^3/uL (0.30-0.80); Segmented Neut Absolute Manual 7.35 10^3/uL (1.4-6.5)
[2024-07-28 12:27] LABS: Troponin I High Sensitivity 16.5 pg/mL (4.0-51.3)
[2024-07-28 12:29] LABS: D Dimer 0.36 mg/L FEU (<=0.59)
[2024-07-28 12:30] LABS: Lactate/Lactic Acid 2.4 mmol/L (0.4-2.0)
[2024-07-28] MEDS: ONDANSETRON 4 MG RAPDIS TABLET SL (13:01)
== END 2024-07-28 13:15 | disposition home or self-care (01) ==
PROVIDERS: Emergency Provider Emergency Medicine Emergency Medical Services; PCP Family Medicine
DX: R55 Syncope and collapse (principal); Z87.891 Personal history of nicotine dependence
CPT/HCPCS: 36415; 80053; 83605; 84484; 85007; 85027; 85378; 93005; 99284; Q0162

== ENCOUNTER 2024-07-31 16:24 | Observation (INO) | payer MEDICAID, SELFPAY ==
[2024-07-31] VITALS (28 sets, daily range): BP systolic 128–171; BP diastolic 66–89; PULSE 72–106; TEMP 36.6–36.8; O2SAT 94–98; BMI 36.3
--- OUTSIDE RECORDS SUMMARY | 2024-07-31 16:45 | XMS_ITS | CCD ---
Author Organization [facility] CliniSywa Care Team Providers Care Plastic Card Grader Cardroom Name Role Phone Kendra Murillo Primary Care Physician [phone] Umm MARTÍNEZ Attending Unavailable NILL, Umm Michael [...] Attending Unavailable GOMEZ JAY Attending Unavailable BIJAN MITCEHLL Attending Unavailable MESERET MAC Referring Unavailable FENG CHRISTIE Attending Unavailable BIJAN MITCHELL Attending Unavailable Allergies Allergy Classification Reported Allergen(s) Allergy Type Date of Onset Reaction(s) Facility (1 source) No Known Medication Allergies; 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: [No Known Medication Allergies] Propensity to adverse reactions (disorder) [facility] Repository (1 source) ALPRAZolam; 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: [ALPRAZOLAM] Drug Allergy [address] [place] [place] [address] Repository (1 source) amLODIPine; 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: [AMLODIPINE] Drug Allergy 4 [facility] Repository (1 source) Lisinopril; 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: [LISINOPRIL] Drug Allergy [address] [place] [address] Repository Medications Current Medications Medication Drug Class(es) [...] Coronary arteriosclerosis; 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: [Atherosclerotic heart disease of [place] coronary artery without angina pectoris] Onset: 3 [...] 11-26-2022 12-20-2019 Episodic Other aftercare (1 source) 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; 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: [HALFWAY CURRENT USE OF ASPIRIN] Onset: 11-26-2022 Episodic Other aftercare (1 source) 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; 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: [OTH HALFWAY CURRENT [...] Interpretation Reference Range Facility Telemedicine 07-20-2024 Telemedicine [id number] Aby Madrigal 1965 F Date Provider Department Center 07/20/2024 RICHA MERINO ONC DCC Family History Problem Relation Age of Onset Lung cancer Mother No Known Problems Father Lung cancer Sister Family Status - Relation Status Age at Mother Father Sister Level of Service:66271 [place] PHYS/QHP TELEPHONE EVALUATION 21-30 MIN () Reason for Visit and Comments: 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 CT CHEST 04-21-24- PET 06-21-24 Films requested 07-18-24 HAVING HARD TIME GETTING FILMS FROM [facility] AGAIN. Ginny at [facility] ([phone] direct line) is working on sending them. CHECK [facility] FOR FILMS PLEASE Normal [facility] 37on 07-18-2024 37 It was [...] lab work done at one of these [facility] Sites The results will then come straight to me I appreciate it [facility] [address], [place] Hours Wednesday - Wednesday 8 AM - 4PM (Closed 12 - 12:30 PM daily) Phone: [facility] [address] Hours: Wednesday - Wednesday 6 AM - 5 PM Saturday: 7 AM - 2 PM Phone: [address] [place] Hours: Wednesday - Wednesday 7 AM - 3:30 PM Phone: [facility] [address] [place] [address] Hours: Wednesday 7 AM - 5:30 PM Phone: [facility] [address], [place] Hours: Wednesday 8 AM - 4:30 PM Phone: [facility] EDNURSon 07-18-2024 EDNURS ADR and relevant inf o reported to [facility] in pharmacy d/t safety net being down. Viet Kelly RN 07/18/24 1139 [facility] EDNURS SENT FROM MD OFFICE RE: LOW BP; RECENT DC FROM [facility] FOR SAME [facility] EDPROVon 07-18-2024 EDPROV HPI Chief Complaint Patient presents with Hypotension Initial assessment completed by Dr Li at 09. bAy Madrigal is a 59 y.o. female presenting to the ED with a chief complaint of hypotension. Pt states she was experiencing a bp of 80/50 while sitting at the doctors office this morning and had kaleidoscope eyes and now she feels tired. She had a nodule on her adrenal gland. She takes diuretics. She started 2 new meds yesterday. History provided by: Patient plastic surgery nurse used: No [place] Coma Scale Score: 15 Patient History Past [...] by mouth i (more content not included)... [facility] Office Visiton 07-18-2024 Follow-up visit [id number] Aby Madrigal 1965 F Date Provider Department Center 07/18/2024 [id number], [place] ENDOCR [facility] Family History Problem Relation Age of Onset Lung cancer Mother No Known Problems Father Lung cancer Sister Family Status - Relation Status Age at Mother Father Sister Level of Service:82601 [place] OFFICE/OUTPATIENT NEW MODERATE MDM 45 MINUTES Reason for Visit and Comments: Nodules [Other] [facility] Follow-up visit [id number] Aby Madrigal 1965 F Date Provider Department [place] 07/18/2024 [id number] WANG [facility] ENDOCR [facility] Family History Problem Relation Age of Onset Lung cancer Mother No Known Problems Father Lung cancer Sister Family Status - Relation Status Age at Mother Father Sister Level of Service:NOCHG [place]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 I am calling you to follow [...] No Patient Name Aby Madrigal Date 07/13/24 [facility] Telephoneon 07-13-2024 Telephone [id number] Aby Madrigal 1965 F Date Provider Department [place] 07/13/2024 GINNY MALONEY [facility] C Family History Problem Relation Age of Onset Lung cancer Mother No Known Problems Father Lung cancer Sister Family Status - Relation Status Age at Mother Father Sister Reason for Visit and Comments: Hospital Follow-up [832] Normal [facility] 30on 07-12-2024 30 The patient [...] to address these barriers include . Normal [facility] ANTI-XA (HEPARIN LEVEL)on HEPARIN UNFRACTIONATED (U/ML) IN PPP BY CHROMOGENIC METHOD 0.60 IU/mL Normal 0.3-0.7 [facility] Comment on above: Order Comment: Basel ine aPTT before initiating heparin infusion. Result Comment: [place] roxaban and Apixaban will interfere with the anti Xa assay used to monitor UFH and LMWH. Performed By: #### L [id number] #### [facility] ([facility]) [address] [place] [address] BASIC METABOLIC PANELon 06-23 Anion gap [Moles/Vol] 10 mmol/L Normal 7-20 [facility] Comment on above: Performed By: #### L [id number] #### [facility] ([facility]) [address] [place] [address] Calcium [Mass/Vol] 8.8 mg/dL Normal 8.6-10.[address] [facility] Comment on above: Performed By: #### L [id number] #### [facility] ([facility]) [address] [place] [address] Chloride [Moles/Vol] 108 mmol/L High 98-107 [facility] Comment on above: Performed By: #### L [id number] #### [facility] ([facility]) [address] [place] [address] CO2 [Moles/Vol] 27 mmol/L Normal 21-31 [facility] Comment on above: Performed By: #### L [id number] #### [facility] ([facility]) [address] [place] [address] Creatinine [Mass/Vol] 0.89 mg/dL Normal 0.60-1.20 [facility] Comment on above: Performed By: #### L [id number] #### [facility] ([facility]) [address] [place] [address] GLOMERULAR FILTRATION RATE ML/MIN/1.73 SQ M.PREDICTED 74.2 mL/min/1.73m*2 Normal >60.0 [facility] Comment on above: Result Comment: The [facility]???s estimated glomerular filtration rate (eGFR) [...] individuals. Performed By: #### L [id number] #### [facility] ([facility]) [address] [place] [address] Glucose [Mass/Vol] 109 mg/dL High 70-[address] [facility] Comment on above: Performed By: #### L [id number] #### [facility] ([facility]) [address] [place] [address] Potassium [Moles/Vol] 3.4 mmol/L Low 3.5-5.1 [facility] Comment on above: Performed By: #### L [id number] #### [facility] ([facility]) [address] [place] [address] Sodium [Moles/Vol] 142 mmol/L Normal 136-[address] [facility] Comment on above: Performed By: #### L [id number] #### [facility] ([facility]) [address] [place] [address] Urea nitrogen [Mass/Vol] 11 mg/dL Normal 7-25 [facility] Comment on above: Performed By: #### L [id number] #### [facility] ([facility]) [address] [place] [address] UREA NITROGEN/CREATININE (MASS RATIO) IN SER/PLAS 12.4 Normal [facility] Comment on above: Performed By: #### L [id number] #### [facility] [address] [place] [address] CBC WITH AUTO DIFFERENTIALon 07-12-2024 Basophils (Bld) [#/Vol] 0.04 10*3/uL Normal 0.00-0.20 [facility] Comment on above: Performed By: #### L [id number] #### [facility] ([facility]) [address] [place] [address] Basophils/100 WBC (Bld) 0.6 % Normal 0.0-1.0 [facility] Comment on above: Performed By: #### L [id number] #### [facility] ([facility]) [address] [place] [address] Eosinophils (Bld) [#/Vol] 0.22 10*3/uL Normal 0.00-0.50 [facility] Comment on above: Performed By: #### L [id number] #### [facility] ([facility]) [address] [place] [address] Eosinophils/100 WBC (Bld) 3.5 % Normal 0.0-6.0 [facility] Comment on above: Performed By: #### L [id number] #### [facility] ([facility]) [address] [place] [address] Erythrocyte distribution width (RBC) [Ratio] 14.5 % Normal 11.5-15.0 [facility] Comment on above: Performed By: #### L [id number] #### [facility] ([facility]) [address] [place] [address] ERYTHROCYTE MEAN CORPUSCULAR HEMOGLOBIN CONCENTRATION (G/DL) BY AUTOMATED 32.7 g/dL Normal 32.0-35.0 [facility] Comment on above: Performed By: #### L [id number] #### [facility] [address] [place] [address] Hematocrit (Bld) [Volume fraction] 34.2 % Low 36.0-48.0 [facility] Comment on above: Performed By: #### L [id number] #### [facility] ([facility]) [address] [place] [address] Hemoglobin (Bld) [Mass/Vol] 11.2 g/dL Low 12.0-15.0 [facility] Comment on above: Performed By: #### L [id number] #### [facility] ([facility]) [address] [place] [address] Immature granulocytes (Bld) [#/Vol] 0.01 10*3/uL Normal 0.00-0.20 [facility] Comment on above: Performed By: #### L [id number] #### [facility] ([facility]) [address] [place] [address] Immature granulocytes/100 WBC (Bld) 0.2 % Normal 0.0-1.0 [facility] Comment on above: Performed By: #### L [id number] #### [facility] ([facility]) [address] [place] [address] Lymphocytes (Bld) [#/Vol] 2.37 10*3/uL Normal 1.20-4.00 [facility] Comment on above: Performed By: #### L [id number] #### [facility] ([facility]) [address] [place] [address] Lymphocytes/100 WBC (Bld) 37.8 % Normal 20.0-45.0 [facility] Comment on above: Performed By: #### L [id number] #### [facility] [address] [place] [address] MCH (RBC) [Entitic mass] 27.4 pg Normal 27.0-33.0 [facility] Comment on above: Performed By: #### L [id number] #### [facility] ([facility]) [address] [place] [address] MCV (RBC) [Entitic vol] 83.6 fL Normal 82.0-98.0 [facility] Comment on above: Performed By: #### L [id number] #### [facility] ([facility]) [address] [place] [address] Monocytes (Bld) [#/Vol] 0.43 10*3/uL Normal 0.10-1.00 [facility] Comment on above: Performed By: #### L [id number] #### [facility] ([facility]) [address] [place] [address] Monocytes/100 WBC (Bld) 6.9 % Normal 5.0-12.0 [facility] Comment on above: Performed By: #### L [id number] #### [facility]) [address] [place] [address] Neutrophils (Bld) [#/Vol] 3.20 10*3/uL Normal 1.60-7.60 [facility] Comment on above: Performed By: #### L [id number] #### [facility] ([facility]) [address] [place] [address] Neutrophils/100 WBC (Bld) 51.0 % Normal 40.0-72.0 [facility] Comment on above: Performed By: #### L [id number] #### [facility] ([facility]) [address] [place] [address] NRBC (PER 100 WBCS) BY AUTOMATED COUNT 0.0 % Normal 0 [facility] Comment on above: Performed By: #### L [id number] #### [facility] [address] [place] [address] PLATELETS (10*3/UL) IN BLOOD AUTOMATED COUNT 223 10*3/uL Normal 150-400 [facility] Comment on above: Performed By: #### L [id number] #### [facility]) [address] [place] [address] RBC (Bld) [#/Vol] 4.09 10*6/uL Normal 3.80-5.00 [facility] Comment on above: Performed By: #### L [id number] #### [facility] ([facility]) [address] [place] [address] WBC (Bld) [#/Vol] 6.27 10*3/uL Normal 4.00-10.60 [facility] Comment on above: Performed By: #### L [id number] #### [facility] ([facility]) [address] [place] [address] MAGNESIUMon 07-12-2024 Magnesium [Mass/Vol] 1.7 mg/dL Low 1.9-2.7 [facility] Comment on above: Performed By: #### L [id number] #### [facility] ([facility]) [address] [facility] [address] POCT GLUCOSE METER UNSOLICIT ED RESULTSon 07-12-2024 Glucose [Mass/Vol] 102 mg/dL Normal 70-[address] [facility] Comment on above: Order Comment: Waive d Testing in the ED is performed under the ED CLIA certificate #[id number]. Result Comment: shod [email or web address] Performed By: #### L [id number] #### [facility] ([facility]) [address] [place] [address] TROPONIN Ion 07-12-2024 Troponin I.cardiac [Mass/Vol] 0.01 ng/mL Normal 0.00-0.04 [facility] Comment on above: Performed By: #### L [id number] #### [facility] ([facility]) [address] [place] [address] 30on 07-11-2024 30 The patient is Moderately [...] and maintained or improved Outcome: Progressing Normal [facility] 30 The patient is Moderately [...] to address these barriers include . Normal [facility] ALDOSTERONEon 07-11-2024 ALDOSTERONE (NG/DL) IN SER/PLAS 4.9 ng/dL Normal [facility] Comment on above: Result Comment: [...] reference intervals for this test in the [employer] [facility] Test [facility] ([employer]). Performed By: [facility] [address] [place] [address] Aerodynamics Professor: Navneet Simeon MD, PhD CLIA Number: [id number] Performed By: #### L [id number] #### [facility] ([facility]) [address] [place] [address] ANTI-XA (HEPARIN LEVEL)on HEPARIN UNFRACTIONATED (U/ML) IN PPP BY CHROMOGENIC METHOD 0.42 IU/mL Normal 0.3-0.7 [facility] Comment on above: Order Comment: Check anti-Xa level every 6 hours while on heparin infusion, or per protocol. Result Comment: [place] roxaban and Apixaban will interfere with the anti Xa assay used to monitor UFH and LMWH. Performed By: #### L [id number] #### [facility] ([facility]) [address] [place] [address] HEPARIN UNFRACTIONATED (U/ML) IN PPP BY CHROMOGENIC METHOD 0.20 IU/mL Low 0.3-0.7 [facility] Comment on above: Order Comment: Basel ine aPTT before initiating heparin infusion. Result Comment: [place] roxaban and Apixaban will interfere with the anti Xa assay used to monitor UFH and LMWH. Performed By: #### L [id number] #### [facility] ([facility]) [address] [place] [address] APTTon 07-11-2023 ACTIVATED PARTIAL THROMBOPLASTIN TIME IN PPP BY COAGULATION ASSAY 43.0 Seconds High 25.0-35.0 [facility] Comment on above: Result Comment: Clin ical significance of the APTT is questionable in the presence of heparin. Performed By: #### L [id number] #### [facility] ([facility]) [address] [place] [address] BASIC METABOLIC PANELon 06-23 Anion gap [Moles/Vol] 9 mmol/L Normal 7-20 [facility] Comment on above: Performed By: #### L [id number] #### [facility] ([facility]) [address] [place] [address] Calcium [Mass/Vol] 8.8 mg/dL Normal 8.6-10.[address] [facility] Comment on above: Performed By: #### L [id number] #### [facility] ([facility]) [address] [place] [address] Chloride [Moles/Vol] 108 mmol/L High 98-107 [facility] Comment on above: Performed By: #### L [id number] #### [facility] ([facility]) [address] [place] [address] CO2 [Moles/Vol] 28 mmol/L Normal 21-31 [facility] Comment on above: Performed By: #### L [id number] #### [facility] ([facility]) [address] [place] [address] Creatinine [Mass/Vol] 1.09 mg/dL Normal 0.60-1.20 [facility] Comment on above: Performed By: #### L [id number] #### [facility] ([facility]) [address] [place] [address] GLOMERULAR FILTRATION RATE ML/MIN/1.73 SQ M.PREDICTED 58.2 mL/min/1.73m*2 Low >60.0 [facility] Comment on above: Result Comment: [facility]???s estimated glomerular filtration rate (eGFR) [...] individuals. Performed By: #### L [id number] #### [facility] ([facility]) [address] [place] [address] Glucose [Mass/Vol] 113 mg/dL High 70-[address] [facility] Comment on above: Performed By: #### L [id number] #### [facility] ([facility]) [address] [place] [address] Potassium [Moles/Vol] 3.4 mmol/L Low 3.5-5.1 [facility] Comment on above: Performed By: #### L [id number] #### [facility] ([facility]) [address] [place] [address] Sodium [Moles/Vol] 142 mmol/L Normal 136-[address] [facility] Comment on above: Performed By: #### L [id number] #### [facility] ([facility]) [address] [place] [address] Urea nitrogen [Mass/Vol] 14 mg/dL Normal 7-25 [facility] Comment on above: Performed By: #### L [id number] #### [facility] ([facility]) [address] [place] [address] UREA NITROGEN/CREATININE (MASS RATIO) IN SER/PLAS 12.8 Normal [facility] Comment on above: Performed By: #### L [id number] #### [facility] ([facility]) [address] [place] [address] CBC WITH AUTO DIFFERENTIALon 07-11-2024 Basophils (Bld) [#/Vol] 0.04 10*3/uL Normal 0.00-0.20 [facility] Comment on above: Performed By: #### L [id number] #### [facility] ([facility]) [address] [address] Basophils/100 WBC (Bld) 0.6 % Normal 0.0-1.0 [facility] Comment on above: Performed By: #### L [id number] #### [facility] ([facility]) [address] [place] [address] Eosinophils (Bld) [#/Vol] 0.16 10*3/uL Normal 0.00-0.50 [facility] Comment on above: Performed By: #### L [id number] #### [facility] ([facility]) [address] [place] [address] Eosinophils/100 WBC (Bld) 2.2 % Normal 0.0-6.0 [facility] Comment on above: Performed By: #### L [id number] #### [facility] ([facility]) [address] [place] [address] Erythrocyte distribution width (RBC) [Ratio] 14.6 % Normal 11.5-15.0 [facility] Comment on above: Performed By: #### L [id number] #### [facility] ([facility]) [address] [place] [address] ERYTHROCYTE MEAN CORPUSCULAR HEMOGLOBIN CONCENTRATION (G/DL) BY AUTOMATED 32.0 g/dL Normal 32.0-35.0 [facility] Comment on above: Performed By: #### L [id number] #### [facility] ([facility]) [address] [place] [address] Hematocrit (Bld) [Volume fraction] 36.2 % Normal 36.0-48.0 [facility] Comment on above: Performed By: #### L [id number] #### [facility] ([facility]) [address] [place] [address] Hemoglobin (Bld) [Mass/Vol] 11.6 g/dL Low 12.0-15.0 [facility] Comment on above: Performed By: #### L [id number] #### [facility] [address] [address] Immature granulocytes (Bld) [#/Vol] 0.02 10*3/uL Normal 0.00-0.20 [facility] Comment on above: Performed By: #### L [id number] #### [facility] ([facility]) [address] [place] [address] Immature granulocytes/100 WBC (Bld) 0.3 % Normal 0.0-1.0 [facility] Comment on above: Performed By: #### L [id number] #### [facility] ([facility]) [address] [place] [address] Lymphocytes (Bld) [#/Vol] 2.34 10*3/uL Normal 1.20-4.00 [facility] Comment on above: Performed By: #### L [id number] #### [facility] ([facility]) [address] [place] [address] Lymphocytes/100 WBC (Bld) 32.6 % Normal 20.0-45.0 [facility] Comment on above: Performed By: #### L [id number] #### [facility] ([facility]) [address] [place] [address] MCH (RBC) [Entitic mass] 27.2 pg Normal 27.0-33.0 [facility] Comment on above: Performed By: #### L [id number] #### [facility] [address] [address] MCV (RBC) [Entitic vol] 85.0 fL Normal 82.0-98.0 [facility] Comment on above: Performed By: #### L [id number] #### [facility] [address] [place] [address] Monocytes (Bld) [#/Vol] 0.49 10*3/uL Normal 0.10-1.00 [facility] Comment on above: Performed By: #### L [id number] #### [facility] [address] [place] [address] Monocytes/100 WBC (Bld) 6.8 % Normal 5.0-12.0 [facility] Comment on above: Performed By: #### L [id number] #### [facility] ([facility]) [address] [place] [address] Neutrophils (Bld) [#/Vol] 4.13 10*3/uL Normal 1.60-7.60 [facility] Comment on above: Performed By: #### L [id number] #### [facility] ([facility]) [address] [place] [address] Neutrophils/100 WBC (Bld) 57.5 % Normal 40.0-72.0 [facility] [facility] Comment on above: Performed By: #### L [id number] #### [facility] ([facility]) [address] [place] [address] NRBC (PER 100 WBCS) BY AUTOMATED COUNT 0.0 % Normal 0 [facility] Comment on above: Performed By: #### L [id number] #### [facility] ([facility]) [address] [place] [address] PLATELETS (10*3/UL) IN BLOOD AUTOMATED COUNT 245 10*3/uL Normal 150-400 [facility] Comment on above: Performed By: #### L [id number] #### [facility] ([facility]) [address] [place] [address] RBC (Bld) [#/Vol] 4.26 10*6/uL Normal 3.80-5.00 [facility] Comment on above: Performed By: #### L [id number] #### [facility] ([facility] [address] [place] [address] WBC (Bld) [#/Vol] 7.18 10*3/uL Normal 4.00-10.60 [facility] Comment on above: Performed By: #### L [id number] #### [facility] ([facility]) [address] [place] [address] CONSULTon 07-11-2024 CONSULT -- Attestation signed by [...] Brown is the endocrine surgeon in the [place] area that would be most appropriate and [...] with plan for outpatient follow up with DC Cardiology and endocrine surgery and endocrinology Meseret Mac MD Cardiology Consult Note Reason for Consult: Chest pain HPI: Aby Madrigal is a 59 y.o. female patient is presenting as a transfer from [facility] for the evaluation of chest pain. [...] medical history of Abnormal ECG, Diabetes mellitus ([facility]), Hyperlipidemia, Hypertension, Obstructive sleep apnea, Panic attacks, and Stroke ([facility]). Surgical History She has a past surgical [...] Value Ventricular Rate 56 Atrial Rate 56 SC Interval 180 QRS DURATION 94 QT Interval 430 QTC (more content not included)... Normal [facility] EDPROVon 07-11-2024 EDPROV HPI Chief [...] Pt states she was trasnfered here [place] to be transferred to cardiology. Pt states she had a cardiac stent placed last week. She denies fever, coughing, vomiting, abdominal pain. She admits diarrhea. She felt better when given ativan and worse when she was given morphine. She has had her gallbladder removed. History provided by: Patient plastic surgery nurse used: No Chest Pain Associated symptoms: no abdominal pain, no cough, no fever and no vomiting [place] Coma Scale Score: 15 Patient History Past [...] signing this emergency patient record, the Emergency Physician/BOAT CANVAS INSTALLER/PA-C attests that all entries made into the electronic medical record by the scribe prior to the Physician/BOAT CANVAS INSTALLER/PA-C signature reflect an accurate accounting of the evaluation and care rendered by that Emergency Physician/BOAT CANVAS INSTALLER/PA-C. The Emergency Physician/BOAT CANVAS INSTALLER/PA-C assumes full responsibility for those entries. The Emergency Physician/BOAT CANVAS INSTALLER/PA-C also attests that any patient testing or treatment that was instituted by nursing staff. [facility] EDPROV HPI Chief Complaint Patient presents with [...] Pt states she was trasnfered here from [place] to be transferred to cardiology. Pt states she had a cardiac stent placed last week. She denies fever, coughing, vomiting, abdominal pain. She admits diarrhea. She felt better when given ativan and worse when she was given morphine. She has had her gallbladder removed. History provided by: Patient plastic surgery nurse used: No Chest Pain Associated symptoms: no abdominal pain, no cough, no fever and no vomiting [place] Coma Scale Score: 15 Patient History Past [...] 07/11/24 1256 NSTEMI (non-ST elevated myocardial infarction) ([facility]) Medical Decision Making Amount and/or Complexity of Data Reviewed Labs: ordered. Decision-making details documented in ED Course. ECG/medicine tests: ordered and independent interpretation performed. Decision-making details documented in ED Course. Risk Drug therapy requiring intensive monitoring for toxicity. Decision regarding hospitalization. Minor surgery with identified risk factors. I, Basilia diallo (more content not included)... Invalid Interpretation Code [facility] POCT GLUCOSE METER UNSOLICIT ED RESULTSon 07-11-2024 Glucose [Mass/Vol] 122 mg/dL High 70-105 [facility] Comment on above: Order Comment: Waive d Testing in the ED is performed under the ED CLIA certificate #[id number]. Result Comment: [email or web address] Performed By: #### L [id number] #### [facility] ([facility]) [address] [place] [address] PROTIME-INRon 07-11-2024 INR IN PPP BY COAGULATION ASSAY 1.00 Normal 0.90-1.10 [facility] Comment on above: Result Comment: [...] 1995;[id number]. Performed By: #### L [id number] #### [facility] ([employer]) [address] [place] [address] PROTHROMBIN TIME (PT) IN PPP BY COAGULATION ASSAY 13.2 Seconds Normal 12.3-14.8 [facility] Comment on above: Performed By: #### L [id number] #### [facility] ([employer]) [address] [place] [address] RENIN ACTIVITYon 07-11-2024 RENIN ACTIVITY <0.1 Normal [facility] Comment on above: Result Comment: INTE RPRETIVE INFORMATION: Renin Activity Adult, Normal sodium diet: Supine ................. 0.2-1.6 ng/mL/hr Upright ................ 0.5-4.0 ng/mL/hr Children, Normal sodium diet, Supine: [place] (1-7 days) ..... 2.0-35.0 ng/mL/hr Cord blood [...] developed and its performance characteristics determined by [facility]. It has not been cleared or approved by the US Food and Drug Administration. This test was performed in a CLIA certified laboratory and is intended for clinical purposes. Performed By: [facility] [address] [place] [address] Aerodynamics Professor: Navneet Simeon MD, PhD CLIA Number: [id number] Performed By: #### L [id number] #### [facility] ([facility]) [address] [place] [address] TROPONIN Ion 07-11-2024 Troponin I.cardiac [Mass/Vol] 0.01 ng/mL Normal 0.00-0.04 [facility] Comment on above: Performed By: #### L [id number] #### [facility] ([facility]) [address] [place] [address] Office Visiton 07-10-2024 Follow-up visit [id number] Aby Madrigal 1965 F Date Provider Department Center 07/10/2024 [id number] MITCHELL [facility] Family History Problem Relation Age of Onset Lung cancer Mother No Known Problems Father Lung cancer Sister Family Status - Relation Status Age at Mother Father Sister Level of Service:54495 SC OFFICE/OUTPATIENT ESTABLISHED MOD MDM 30 MIN Reason for Visit and Comments: Coronary Artery Disease [187] Post-Cath [731] Normal [facility] 36on 07-03-2024 36 Post Discharge Call Good morning, I am Ginny Kirkland, RN a lead nurse from [facility]. I am calling you to follow [...] Patient Name Aby Madrigal Date 07/03/24 Normal [facility] Telephoneon 07-03-2024 Telephone [id number] Aby Madrigal 1965 F Date Provider Department Center 07/03/2024 Adela-GINNY KIRKLAND [facility] Family History Problem Relation Age of Onset Lung cancer Mother No Known Problems Father Lung cancer Sister Family Status - Relation Status Age at Mother Father Sister Reason for Visit and Comments: Hospital Follow-up [832] Normal [facility] 30on 07-01-2024 30 The patient [...] and maintained or improved Outcome: Progressing Normal [facility] BASIC METABOLIC PANELon 08- Anion gap [Moles/Vol] 14 mmol/L Normal - [facility] Comment on above: Performed By: #### L [id number] #### [facility] ([facility]) [address] [place] [address] Calcium [Mass/Vol] 8.2 mg/dL Low 8.6-10.[address] [facility] Comment on above: Performed By: #### L [id number] #### [facility] ([facility]) [address] [place] [address] Chloride [Moles/Vol] 106 mmol/L Normal 98-107 [facility] Comment on above: Performed By: #### L [id number] #### [facility] ([facility]) [address] [place] [address] CO2 [Moles/Vol] 25 mmol/L Normal 21-31 [facility] Comment on above: Performed By: #### L [id number] #### [facility] ([facility]) [address] [place] [address] Creatinine [Mass/Vol] 0.91 mg/dL Normal 0.60-1.20 [facility] Comment on above: Performed By: #### L [id number] #### [facility] ([facility]) [address] [place] [address] GLOMERULAR FILTRATION RATE ML/MIN/1.73 SQ M.PREDICTED 72.2 mL/min/1.73m*2 Normal >60.0 [facility] Comment on above: Result Comment: The [facility]???s estimated glomerular filtration rate (eGFR) [...] individuals. Performed By: #### L [id number] #### [facility] ([facility]) [address] [place] [address] Glucose [Mass/Vol] 101 mg/dL High 70-[address] [facility] Comment on above: Performed By: #### L [id number] #### [facility] ([facility]) [address] [place] [address] Potassium [Moles/Vol] 3.5 mmol/L Normal 3.5-5.1 [facility] Comment on above: Performed By: #### L [id number] #### [facility] ([facility]) [address] [place] [address] Sodium [Moles/Vol] 141 mmol/L Normal 136-[address] [facility] Comment on above: Performed By: #### L [id number] #### [facility] ([facility]) [address] [place] [address] Urea nitrogen [Mass/Vol] 13 mg/dL Normal 7-25 [facility] Comment on above: Performed By: #### L [id number] #### [facility] ([facility]) [address] [place] [address] UREA NITROGEN/CREATININE (MASS RATIO) IN SER/PLAS 14.3 Normal [facility] Comment on above: Performed By: #### L [id number] #### [facility] ([facility]) [address] [place] [address] CBCon 07-01-2024 Erythrocyte distribution width (RBC) [Ratio] 15.4 % High 11.5-15.0 [facility] Comment on above: Performed By: #### L [id number] #### [facility] ([facility]) [address] [place] [address] ERYTHROCYTE MEAN CORPUSCULAR HEMOGLOBIN CONCENTRATION (G/DL) BY AUTOMATED 32.1 g/dL Normal 32.0-35.0 [facility] Comment on above: Performed By: #### L [id number] #### [facility] ([facility]) [address] [address] Hematocrit (Bld) [Volume fraction] 38.6 % Normal 36.0-48.0 [facility] Comment on above: Performed By: #### L [id number] #### [facility] ([facility]) [address] [place] [address] Hemoglobin (Bld) [Mass/Vol] 12.4 g/dL Normal 12.0-15.0 [facility] Comment on above: Performed By: #### L [id number] #### [facility] ([facility]) [address] [place] [address] MCH (RBC) [Entitic mass] 26.9 pg Low 27.0-33.0 [facility] Comment on above: Performed By: #### L [id number] #### [facility] ([facility]) [address] [place] [address] MCV (RBC) [Entitic vol] 83.7 fL Normal 82.0-98.0 [facility] Comment on above: Performed By: #### L [id number] #### [facility] ([facility]) [address] [place] [address] PLATELETS (10*3/UL) IN BLOOD AUTOMATED COUNT 238 10*3/uL Normal 150-400 [facility] Comment on above: Performed By: #### L [id number] #### [facility] ([facility]) [address] [place] [address] RBC (Bld) [#/Vol] 4.61 10*6/uL Normal 3.80-5.00 [facility] Comment on above: Performed By: #### L [id number] #### [facility] ([facility]) [address] [place] [address] WBC (Bld) [#/Vol] 7.04 10*3/uL Normal 4.00-10.60 [facility] Comment on above: Performed By: #### L [id number] #### [facility] ([facility]) [address] [place] [address] LIPID PANELon 07-01-2024 CHOL/HDL 3.8 mg/dL Normal [facility] Comment on above: Performed By: #### L [id number] #### [facility] ([facility] [address] [place] [address] Cholesterol [Mass/Vol] 128 mg/dL Normal 120-200 [facility] Comment on above: Performed By: #### L [id number] #### [facility] ([facility]) [address] [place] [address] Magnesium [Mass/Vol] 87 mg/dL Normal 40-149 [facility] Comment on above: Result Comment: TRIG LYCERIDE REFERENCE RANGE: 20 YEARS AND OLDER CARDIOVASCULAR RISK LESS THAN 150 mg/dL LOW RISK 150 TO 199 mg/dL BORDERLINE RISK 200 mg/dL AND GREATER HIGH RISK Performed By: #### L [id number] #### [facility] ([facility]) [address] [place] [address] Magnesium [Mass/Vol] 77 mg/dL Normal 0-160 [facility] Comment on above: Performed By: #### L [id number] #### [facility] ([facility]) [address] [place] [address] Magnesium [Mass/Vol] 34 mg/dL Normal 23-92 [facility] Comment on above: Performed By: #### L [id number] #### [facility] ([facility]) [address] [place] [address] NON HDL CHOL. (LDL+VLDL) 94 Normal [facility] Comment on above: Performed By: #### L [id number] #### [facility] ([facility]) [address] [place] [address] TOTAL VLDL-C 17 mg/dL Normal 0-40 [facility] Comment on above: Performed By: #### L [id number] #### [facility] ([facility]) [address] [place] [address] MAGNESIUMon 07-01-2024 Magnesium [Mass/Vol] 2.0 mg/dL Normal 1.9-2.7 [facility] Comment on above: Performed By: #### L [id number] #### [facility] ([facility]) [address] [place] [address] NURSNOTEon 07-01-2024 NURSNOTE Discharge instructio ns given, reviewed, questions, answered, signed, copy received. Normal [facility] POCT GLUCOSE METER UNSOLICIT ED RESULTSon 07-01-2024 Glucose [Mass/Vol] 124 mg/dL High 70-[address] [facility] Comment on above: Order Comment: Basel ine aPTT before initiating heparin infusion. Result Comment: [email or web address] Performed By: #### L [id number] #### [facility] ([facility]) [address] [place] [address] Glucose [Mass/Vol] 106 mg/dL High 70-[address] [facility] Comment on above: Order Comment: Waive d Testing in the ED is performed under the ED CLIA certificate #[id number]. Result Comment: [email or web address] Performed By: #### L [id number] #### [facility] ([facility]) [address] [place] [address] TROPONIN Ion 07-01-2024 Troponin I.cardiac [Mass/Vol] 0.09 ng/mL High 0.00-0.04 [facility] Comment on above: Performed By: #### L [id number] #### [facility] ([facility]) [address] [place] [address] 30on 06-30-2024 30 The patient is Moderately Stable - Low risk of patient condition declining or worsening The patient's goals for the shift include comfort, rest The clinical goals for the shift include stable vitals, comfort Problem: Pain - Adult Goal: Verbalizes/displays adequate comfort level or baseline comfort level Outcome: Not Progressing Normal [facility] 30 Daily Case Managemen t [...] PT Recommendations: OT Recommendations: New Consults: Normal [facility] 30 The patient is Moderately Stable - Low risk of patient condition declining or worsening The patient's goals for the shift include COMFORT The clinical goals for the shift include VSS Over the shift, the patient did not make progress toward the following goals. Barriers to progression include . Recommendations to address these barriers include . Normal [facility] ANTI-XA (HEPARIN LEVEL)on HEPARIN UNFRACTIONATED (U/ML) IN PPP BY CHROMOGENIC METHOD 0.64 IU/mL Normal 0.3-0.7 [facility] Comment on above: Order Comment: Check anti-Xa level every 6 hours while on heparin infusion, or per protocol. Result Comment: [place] roxaban and Apixaban will interfere with the anti Xa assay used to monitor UFH and LMWH. Performed By: #### L [id number] #### [facility] ([facility]) [address] [place] [address] BASIC METABOLIC PANELon 08- Anion gap [Moles/Vol] 11 mmol/L Normal 7-20 [facility] Comment on above: Performed By: #### L [id number] #### [facility] ([employer] [facility]) [address] [place] [address] Calcium [Mass/Vol] 8.3 mg/dL Low 8.6-10.[address] [facility] Comment on above: Performed By: #### L [id number] #### [facility] ([employer]) [address] [place] [address] Chloride [Moles/Vol] 110 mmol/L High 98-107 [facility] Comment on above: Performed By: #### L [id number] #### [facility] ([employer]) [address] [place] [address] CO2 [Moles/Vol] 26 mmol/L Normal 21-31 [facility] Comment on above: Performed By: #### L [id number] #### [facility] ([facility] [address] [place] [address] Creatinine [Mass/Vol] 0.81 mg/dL Normal 0.60-1.20 [facility] Comment on above: Performed By: #### L [id number] #### [facility] ([facility]) [address] [place] [address] GLOMERULAR FILTRATION RATE ML/MIN/1.73 SQ M.PREDICTED 83.1 mL/min/1.73m*2 Normal >60.0 [facility] Comment on above: Result Comment: The [facility]???s estimated glomerular filtration rate (eGFR) [...] #### [facility] ([facility]) [address] [place] [address] Glucose [Mass/Vol] 110 mg/dL High 70-[address] [facility] Comment on above: Performed By: #### L [id number] #### [facility] ([facility]) [address] [place] [address] Potassium [Moles/Vol] 3.7 mmol/L Normal 3.5-5.1 [facility] Comment on above: Performed By: #### L [id number] #### [facility] ([facility]) [address] [place] [address] Sodium [Moles/Vol] 143 mmol/L Normal 136-[address] [facility] Comment on above: Performed By: #### L [id number] #### [facility] ([facility]) [address] [place] [address] Urea nitrogen [Mass/Vol] 10 mg/dL Normal 7-25 [facility] Comment on above: Performed By: #### L [id number] #### [facility] ([facility]) [address] [place] [address] UREA NITROGEN/CREATININE (MASS RATIO) IN SER/PLAS 12.3 Normal [facility] Comment on above: Performed By: #### L [id number] #### [facility] ([facility]) [address] [place] [address] CBCon 06-30-2024 Erythrocyte distribution width (RBC) [Ratio] 15.3 % High 11.5-15.0 [facility] Comment on above: Performed By: #### L [id number] #### [facility] ([facility]) [address] [place] [address] ERYTHROCYTE MEAN CORPUSCULAR HEMOGLOBIN CONCENTRATION (G/DL) BY AUTOMATED 31.3 g/dL Low 32.0-35.0 [facility] Comment on above: Performed By: #### L [id number] #### [facility] ([facility]) [address] [place] [address] Hematocrit (Bld) [Volume fraction] 36.7 % Normal 36.0-48.0 [facility] Comment on above: Performed By: #### L [id number] #### [facility] ([facility]) [address] [place] [address] Hemoglobin (Bld) [Mass/Vol] 11.5 g/dL Low 12.0-15.0 [facility] Comment on above: Performed By: #### L [id number] #### [facility] ([facility]) [address] [place] [address] MCH (RBC) [Entitic mass] 26.9 pg Low 27.0-33.0 [facility] Comment on above: Performed By: #### L [id number] #### [facility] ([facility]) [address] [place] [address] MCV (RBC) [Entitic vol] 85.7 fL Normal 82.0-98.0 [facility] Comment on above: Performed By: #### L [id number] #### [facility] ([facility]) [address] [place] [address] PLATELETS (10*3/UL) IN BLOOD AUTOMATED COUNT 243 10*3/uL Normal 150-400 [facility] Comment on above: Performed By: #### L [id number] #### [facility] ([facility]) [address] [place] [address] RBC (Bld) [#/Vol] 4.28 10*6/uL Normal 3.80-5.00 [facility] Comment on above: Performed By: #### L [id number] #### [facility] ([facility] [address] [place] [address] WBC (Bld) [#/Vol] 7.41 10*3/uL Normal 4.00-10.60 [facility] Comment on above: Performed By: #### L [id number] #### [facility] ([facility] [address] [place] [address] CONSULTon 06-30-2024 CONSULT Cardiology Consult Note Reason for Consult: NSTEMI, transfer from [facility] HPI: Aby Madrigal, a 59 y.o. female patient, is transferred from [facility] for continuity of care. Past medical history includes: HTN History of TIA DMII HLD SURESH Overweight Patient reports that 3 days ago, she woke up in the mid of the night with indigestion, and a feeling fullness, but no pressure like chest pain. She presented to [facility], where she was found to be [...] Value Ventricular Rate 71 Atrial Rate 71 SC Interval 176 QRS DURATION 92 QT Interval 424 QTC CALCULATION(BAZETT) 460 P [place] 52 R-[place] 19 T Wave [place] 164 Impression Normal sinus rhythm Left ventricular [...] Normal sinu (more content not included)... Normal [facility] 06-30-2024 H&P reviewed. The patient was examined and there are no changes to the H&P. 59 y.o. year old female with a PMHx significant for DM2, hypertension presents a direct mission from [facility] with a chief complaint of chest [...] to proceed. Signed, Yris Oakley MD PGY-4 Power Shear Operator Pager: [phone] Normal [facility] POCT GLUCOSE METER UNSOLICIT ED RESULTSon 06-30-2024 Glucose [Mass/Vol] 170 mg/dL High 70-[address] [facility] Comment on above: Order Comment: Waive d Testing in the ED is performed under the ED CLIA certificate #[id number]. Result Comment: [email or web address] Performed By: #### L [id number] #### [facility] ([facility]) [address] [place] [address] Glucose [Mass/Vol] 129 mg/dL High 70-[address] [facility] Comment on above: Order Comment: Waive d Testing in the ED is performed under the ED CLIA certificate #[id number]. Result Comment: [email or web address] Performed By: #### L [id number] #### [facility] ([facility]) [address] [place] [address] Glucose [Mass/Vol] 167 mg/dL High 70-[address] [facility] Comment on above: Order Comment: Waive d Testing in the ED is performed under the ED CLIA certificate #[id number]. Result Comment: [email or web address] Performed By: #### L [id number] #### [facility] ([facility]) [address] [place] [address] TROPONIN Ion 06-30-2024 Troponin I.cardiac [Mass/Vol] 0.07 ng/mL High 0.00-0.04 [facility] Comment on above: Performed By: #### L [id number] #### [facility] [address] [place] [address] Troponin I.cardiac [Mass/Vol] 0.10 ng/mL High 0.00-0.04 [facility] Comment on above: Performed By: #### L [id number] #### [facility] [address] [place] [address] Troponin I.cardiac [Mass/Vol] 0.11 ng/mL Critically high 0.00-0.04 [facility] Comment on above: Result Comment: M-TR OPONIN INITIAL CRITICAL HIGH; RESPUN AND RETESTED Performed By: #### L [id number] #### [facility] ([facility]) [address] [place] [address] 30on 06-29-2024 30 The patient is Moderately Stable - Low risk of patient condition declining or worsening The patient's goals for the shift include COMFORT The clinical goals for the shift include VSS Normal [facility] APTTon 06-29-2024 ACTIVATED PARTIAL THROMBOPLASTIN TIME IN PPP BY COAGULATION ASSAY 34.5 Seconds Normal 25.0-35.0 [facility] Comment on above: Order Comment: Basel ine aPTT before initiating heparin infusion. Result Comment: Clin ical significance of the APTT is questionable in the presence of heparin. Performed By: #### L [id number] #### [facility] ([facility]) [address] [place] [address] B-TYPE NATRIURETIC PEPTIDEon 06-29-2024 Natriuretic peptide B (Bld) [Mass/Vol] 222 pg/mL High 0-100 [facility] Comment on above: Performed By: #### L [id number] #### [facility] ([employer]) [address] [place] [address] CBC WITH AUTO DIFFERENTIALon 06-29-2024 Basophils (Bld) [#/Vol] 0.05 10*3/uL Normal 0.00-0.20 [facility] Comment on above: Performed By: #### L [id number] #### [facility] ([employer]) [address] [place] [address] Basophils/100 WBC (Bld) 0.6 % Normal 0.0-1.0 [facility] Comment on above: Performed By: #### L [id number] #### [facility] [address] [place] [address] Eosinophils (Bld) [#/Vol] 0.18 10*3/uL Normal 0.00-0.50 [facility] Comment on above: Performed By: #### L [id number] #### [facility] ([facility]) [address] [place] [address] Eosinophils/100 WBC (Bld) 2.1 % Normal 0.0-6.0 [facility] Comment on above: Performed By: #### L [id number] #### [facility] ([facility]) [address] [place] [address] Erythrocyte distribution width (RBC) [Ratio] 14.9 % Normal 11.5-15.0 [facility] Comment on above: Performed By: #### L [id number] #### [facility] ([facility]) [address] [place] [address] ERYTHROCYTE MEAN CORPUSCULAR HEMOGLOBIN CONCENTRATION (G/DL) BY AUTOMATED 32.9 g/dL Normal 32.0-35.0 [facility] Comment on above: Performed By: #### L [id number] #### [facility] ([facility]) [address] [place] [address] Hematocrit (Bld) [Volume fraction] 35.9 % Low 36.0-48.0 [facility] Comment on above: Performed By: #### L [id number] #### [facility] ([facility]) [address] [place] [address] Hemoglobin (Bld) [Mass/Vol] 11.8 g/dL Low 12.0-15.0 [facility] Comment on above: Performed By: #### L [id number] #### [facility] ([facility]) [address] [place] [address] Immature granulocytes (Bld) [#/Vol] 0.03 10*3/uL Normal 0.00-0.20 [facility] Comment on above: Performed By: #### L [id number] #### [facility] ([facility]) [address] [place] [address] Immature granulocytes/100 WBC (Bld) 0.3 % Normal 0.0-1.0 [facility] Comment on above: Performed By: #### L [id number] #### [facility] ([facility]) [address] [place] [address] Lymphocytes (Bld) [#/Vol] 2.02 10*3/uL Normal 1.20-4.00 [facility] Comment on above: Performed By: #### L [id number] #### [facility] ([facility]) [address] [place] [address] Lymphocytes/100 WBC (Bld) 23.5 % Normal 20.0-45.0 [facility] Comment on above: Performed By: #### L [id number] #### [facility] ([facility]) [address] [place] [address] MCH (RBC) [Entitic mass] 27.2 pg Normal 27.0-33.0 [facility] Comment on above: Performed By: #### L [id number] #### [facility] ([facility]) [address] [place] [address] MCV (RBC) [Entitic vol] 82.7 fL Normal 82.0-98.0 [facility] Comment on above: Performed By: #### L [id number] #### [facility] ([facility]) [address] [place] [address] Monocytes (Bld) [#/Vol] 0.56 10*3/uL Normal 0.10-1.00 [facility] Comment on above: Performed By: #### L [id number] #### [facility] ([facility]) [address] [place] [address] Monocytes/100 WBC (Bld) 6.5 % Normal 5.0-12.0 [facility] Comment on above: Performed By: #### L [id number] #### [facility] ([facility]) [address] [place] [address] Neutrophils (Bld) [#/Vol] 5.74 10*3/uL Normal 1.60-7.60 [facility] Comment on above: Performed By: #### L [id number] #### [facility] ([facility]) [address] [place] [address] Neutrophils/100 WBC (Bld) 67.0 % Normal 40.0-72.0 [facility] Comment on above: Performed By: #### L [id number] #### [facility] ([facility]) [address] [place] [address] NRBC (PER 100 WBCS) BY AUTOMATED COUNT 0.0 % Normal 0 [facility] Comment on above: Performed By: #### L [id number] #### [facility] ([facility]) [address] [place] [address] PLATELETS (10*3/UL) IN BLOOD AUTOMATED COUNT 233 10*3/uL Normal 150-400 [facility] Comment on above: Performed By: #### L [id number] #### [facility] ([facility]) [address] [place] [address] RBC (Bld) [#/Vol] 4.34 10*6/uL Normal 3.80-5.00 [facility] Comment on above: Performed By: #### L [id number] #### [facility] ([facility]) [address] [place] [address] WBC (Bld) [#/Vol] 8.58 10*3/uL Normal 4.00-10.60 [facility] Comment on above: Performed By: #### L [id number] #### [facility] ([facility]) [address] [place] [address] COMPREHENSIVE METABOLIC PANE Alec 06-29-2024 Albumin [Mass/Vol] 3.8 g/dL Normal 3.5-5.[address] [facility] Comment on above: Performed By: #### L [id number] #### [facility] ([facility]) [address] [place] [address] ALP [Catalytic activity/Vol] 64 U/L Normal 34-104 [facility] Comment on above: Performed By: #### L [id number] #### [facility] [address] [place] [address] ALT [Catalytic activity/Vol] 35 U/L Normal 7-52 [facility] Comment on above: Performed By: #### L [id number] #### [facility] ([facility]) [address] [place] [address] Anion gap [Moles/Vol] 12 mmol/L Normal 7-20 [facility] Comment on above: Performed By: #### L [id number] #### [facility] ([facility]) [address] [place] [address] AST [Catalytic activity/Vol] 21 U/L Normal 13-39 [facility] Comment on above: Performed By: #### L [id number] #### [facility] ([facility]) [address] [place] [address] Bilirubin [Mass/Vol] 0.4 mg/dL Normal 0.3-1.0 [facility] Comment on above: Performed By: #### L [id number] #### [facility] ([facility]) [address] [place] [address] Calcium [Mass/Vol] 8.5 mg/dL Low 8.6-10.[address] [facility] Comment on above: Performed By: #### L [id number] #### [facility] [address] [place] [address] Chloride [Moles/Vol] 112 mmol/L High 98-107 [facility] Comment on above: Performed By: #### L [id number] #### [facility] [address] [place] [address] CO2 [Moles/Vol] 22 mmol/L Normal 21-31 [facility] Comment on above: Performed By: #### L [id number] #### [facility] ([facility] [address] [place] [address] Creatinine [Mass/Vol] 0.92 mg/dL Normal 0.60-1.20 [facility] Comment on above: Performed By: #### L [id number] #### [facility] ([facility]) [address] [place] [address] GLOMERULAR FILTRATION RATE ML/MIN/1.73 SQ M.PREDICTED 71.3 mL/min/1.73m*2 Normal >60.0 [facility] Comment on above: Result Comment: [facility]???s estimated glomerular filtration rate (eGFR) [...] individuals. Performed By: #### L [id number] #### [facility] ([facility]) [address] [place] [address] Glucose [Mass/Vol] 108 mg/dL High 70-[address] [facility] Comment on above: Performed By: #### L [id number] #### [facility] ([facility]) [address] [place] [address] Potassium [Moles/Vol] 3.7 mmol/L Normal 3.5-5.1 [facility] Comment on above: Performed By: #### L [id number] #### [facility] ([facility]) [address] [place] [address] Protein [Mass/Vol] 6.1 g/dL Normal 6.0-8.[address] [facility] Comment on above: Performed By: #### L [id number] #### [facility] [address] [place] [address] Sodium [Moles/Vol] 142 mmol/L Normal 136-145 [facility] Comment on above: Performed By: #### L [id number] #### [facility] ([facility]) [address] [place] [address] Urea nitrogen [Mass/Vol] 11 mg/dL Normal 7-25 [facility] Comment on above: Performed By: #### L [id number] #### [facility] ([facility]) [address] [place] [address] UREA NITROGEN/CREATININE (MASS RATIO) IN SER/PLAS 12.0 Normal [facility] Comment on above: Performed By: #### L [id number] #### [facility] ([facility]) [address] [place] [address] MAGNESIUMon 06-29-2024 Magnesium [Mass/Vol] 1.7 mg/dL Low 1.9-2.7 [facility] Comment on above: Performed By: #### L [id number] #### [facility] ([facility]) [address] [place] [address] PHOSPHORUSon 06-29-2024 Magnesium [Mass/Vol] 2.9 mg/dL Normal 2.5-5.0 [facility] Comment on above: Performed By: #### L [id number] #### [facility] ([facility]) [address] [place] [address] PROTIME-INRon 06-29-2024 INR IN PPP BY COAGULATION ASSAY 0.99 Normal 0.90-1.10 [facility] Comment on above: Result Comment: [...] 1995;108:[id number]-[id number]. Performed By: #### L [id number] #### [facility] ([facility]) [address] [place] [address] PROTHROMBIN TIME (PT) IN PPP BY COAGULATION ASSAY 13.1 Seconds Normal 12.3-14.8 [facility] Comment on above: Performed By: #### L [id number] #### [facility] ([facility]) [address] [place] [address] TROPONIN Ion 06-29-2024 Troponin I.cardiac [Mass/Vol] 0.10 ng/mL High 0.00-0.04 [facility] Comment on above: Performed By: #### L [id number] #### [facility] ([facility]) [address] [place] [address] Office Visiton 06-21-2024 Follow-up visit [id number] Aby Madrigal 1965 F Date Provider Department Center 06/21/2024 GOMEZ KENDALL RIAZ [place] Family History Problem Relation Age of Onset Lung cancer Mother No Known Problems Father Lung cancer Sister Family Status - Relation Status Age at Mother Father Sister Level of Service:41369 SC OFFICE/OUTPATIENT ESTABLISHED MOD MDM 30 MIN Normal [facility] Office Visiton 05-26-2024 Follow-up visit [id number] Sanjana Madrigalty S 1965 F Date Provider Department Center 05/26/2024 BIJAN LAWLER RIAZ [place] Family History Problem Relation Age of Onset Lung cancer Mother No Known Problems Father Lung cancer Sister Family Status - Relation Status Age at Mother Father Sister Level of Service:02227 SC OFFICE/OUTPATIENT NEW MODERATE MDM 45 MINUTES Normal [facility] Outside Colonoscopyon 2022 Outside Colonoscopy [id number] 0CD:127 Normal [facility] Reminderson 11-27-2022 Reminders - From: Na Hayes LPN To: N - Clinical; Sent: 11/27/2022 12:46:10 EST Show up: 10/25/2032 07:00:00 EST Subject: colonoscopy recall Due Date/Time: 11/25/2032 07:00:00 EST Reminder/Recall Patient is due for screening colonoscopy 11/25/2032. Normal [facility] Lab Reportson 11-24-2022 Lab Reports [id number] 0CD:127 Normal [facility] Cov[facility]-19 PCR [facility]on 10-24 SARS-CoV-2 (COVID-19) RNA BECK+probe Ql (Unsp spec) Not detected Normal NOT DETECTED [facility] Comment on above: Result Comment: This test is not yet approved or cleared by the [place] FDA. When there are no FDA-approved or cleared tests available, and other criteria are met, FDA can make tests available under an emergency access mechanism called an Emergency Use Authorization (EUA). The EUA for this test is supported by the [place] of Health and Human Service's (HHS's) declaration [...] consistent with SARS-CoV-2. Performed By: #### [facility] #### [facility] [address] [place] [address] Dr. Rich Cutler Consent for Procedure/Surger yon 10-07-2022 Consent for Procedure/Surgery [id number] 0CD:127 Normal [facility] Ambulatory Visit Summaryon 1 12-06-2021 Ambulatory [...] Allergic conjunctivitis Anticoagulated Kidney stones Normal [facility] VC VENOUS REFLUX NINO LMTon 1 12-02-2021 VC VENOUS REFLUX NINO LMT Patient: ABY MADRIGAL Exam Date: 10/02/2022 : 1965 Gender:F Ordering : DR KENDRA MURILLO . Admission #: [id number] Family : Order #: [id number] CLICK HERE TO VIEW EXAM RADIOLOGY REPORT [...] chronic thrombus visualized Compressibility: Normal Flow: Normal Transition Social Worker: Dist/med calf 3.3mm with 0s reflux. Tech Note: Incompetent SFJ and GSV. Patent varicose vein mid/med calf 2.9mm with 0s reflux. Patent varicose vein prox/post calf 3.8mm with 0s reflux. Patent varicose vein dist/med thigh 3.8mm with 2.0s reflux. CONCLUSION: 1. Mild right and wslp-et-dunjywhh left great saphenous vein venous insufficiency with dilatation 2. Left saphenous popliteal junction reflux 3. Mild left anterior accessory saphenous vein venous insufficiency without dilatation 4. Small bilateral incompetent varicose veins Dictated by: Adelia Lezama MD on 10/02/2022 at 13:36 Approved by: Adelia Lezama MD on 10/02/2022 at 13:52 Normal [facility] ECHOCARDIO M/2D COMPLETEon 1 11-30-2021 ECHOCARDIO M/2D COMPLETE Patient: ABY MADRIGAL Exam Date: 09/30/2022 : 1965 Gender:F Ordering : DR KENDRA MURILLO . Admission #: [id number] Family : Order #: [id number] CLICK HERE TO VIEW EXAM ECHOCARDIOGRAM REPORT [...] on 09/30/2022 at 18:37 Normal [facility] BNPon 09-24-2022 Natriuretic peptide B (Bld) [Mass/Vol] 501.0 pg/mL Normal <=900.0 [facility] Comment on above: Performed By: #### C VDTB #### [facility] [address] [place] [address] Dr. Rich Cutler CBC AUTO DIFFon 09-24-2022 BASO # 0.1 103/ul Normal 0.0-0.1 [facility] Comment on above: Performed By: #### C VDTBH #### [facility] [address] [place] [address] Dr. Rich Cutler Basophils/100 WBC (Bld) 0.8 % Normal 0.2-2.0 [facility] Comment on above: Performed By: #### C VDTBH #### [facility] [address] [place] [address] Dr. Rich Cutler EO # 0.3 103/ul Normal 0.0-0.7 [facility] Comment on above: Performed By: #### C VDTBH #### [facility] [address] [place] [address] Dr. Rich Cutler Eosinophils/100 WBC (Bld) 3.4 % Normal 0.9-7.0 [facility] Comment on above: Performed By: #### C VDTBH #### [facility] [address] [place] [address] Dr. Rich Cutler Erythrocyte distribution width (RBC) [Ratio] 13.3 % Normal 11.0-15.0 [facility] Comment on above: Performed By: #### C VDTBH #### [facility] [address] [place] [address] Dr. Rich Cutler Hematocrit (Bld) [Volume fraction] 40.5 % Normal 36.0-48.0 [facility] Comment on above: Performed By: #### C VDTBH #### [facility] [address] [place] [address] Dr. Rich Cutler Hemoglobin (Bld) [Mass/Vol] 13.1 g/dL Normal 12.0-16.0 [facility] Comment on above: Performed By: #### C VDTBH #### [facility] [address] [place] [address] Dr. Rich Cutler IG # 0.02 10e3/ul Normal 0.00-0.03 [facility] Comment on above: Performed By: #### C VDTBH #### [facility] [address] [place] [address] Dr. Rich Cutler IG % 0.3 % Normal 0.0-0.5 [facility] Comment on above: Performed By: #### C VDTBH #### [facility] [address] [place] [address] Dr. Rich Cutler LYMPH # 2.7 103/ul Normal 1.2-3.8 [facility] Comment on above: Performed By: #### C VDTBH #### [facility] [address] [place] [address] Dr. Rich Cutler Lymphocytes/100 WBC (Bld) 35.4 % Normal 20.5-60.0 [facility] Comment on above: Performed By: #### C VDTBH #### [facility] [address] [place] [address] Dr. Rich Cutler MANUAL DIFF REQ NO Normal [facility] Comment on above: Performed By: #### C VDTBH #### [facility] [address] [place] [address] Dr. Rich Cutler MCH (RBC) [Entitic mass] 28.2 pg Normal 26.7-34.0 [facility] Comment on above: Performed By: #### C VDTBH #### [facility] [address] [place] [address] Dr. Rich Cutler MCHC (RBC) [Mass/Vol] 32.3 g/dL Normal 29.9-35.2 [facility] Comment on above: Performed By: #### C VDTBH #### [facility] [address] [place] [address] Dr. Rich Cutler MCV (RBC) [Entitic vol] 87.3 fL Normal 81.0-99.0 [facility] Comment on above: Performed By: #### C VDTBH #### [facility] [address] [place] [address] Dr. Rich Cutler MONO # 0.5 103/ul Normal 0.3-0.8 [facility] Comment on above: Performed By: #### C VDTBH #### [facility] [address] [place] [address] Dr. Rich Cutler Monocytes/100 WBC (Bld) 6.5 % Normal 1.7-12.0 [facility] Comment on above: Performed By: #### C VDTBH #### [facility] [address] [place] [address] Dr. Rich Cutler NEUT # 4.1 103/ul Normal 1.4-6.5 [facility] Comment on above: Performed By: #### C VDTBH #### [facility] [address] [place] [address] Dr. Rich Cutler Neutrophils/100 WBC (Bld) 53.6 % Normal 43.0-75.0 [facility] Comment on above: Performed By: #### C VDTBH #### [facility] [address] [place] [address] Dr. Rich Cutler Platelet mean volume (Bld) [Entitic vol] 10.3 fL Normal 9.5-13.5 [facility] Comment on above: Performed By: #### C VDTB #### [facility] [address] [place] [address] Dr. Rich Cutler PLT 283 103/ul Normal 150-450 [facility] Comment on above: Performed By: #### C VDTBH #### [facility] [address] [place] [address] Dr. Rich Cutler RBC 4.64 106/ul Normal 4.20-5.40 [facility] Comment on above: Performed By: #### C VDTBH #### [facility] [address] [place] [address] Dr. Rich Cutler WBC 7.6 103/ul Normal 4.0-11.0 [facility] Comment on above: Performed By: #### C VDTBH #### [facility] [address] [place] [address] Dr. Rich Cutler INSULINon 09-24-2022 Insulin 15.1 uIU/mL Normal 2.6-24.9 [facility] Comment on above: Performed By: #### C VDTBH #### [facility] [address] [place] [address] Dr. Rich Cutler PROF 14(COMP METB)on 022 Albumin [Mass/Vol] 3.5 g/dL Normal 3.4-5.0 [facility] Comment on above: Performed By: #### C VDTBH #### [facility] [address] [place] [address] Dr. Rich Cutler Albumin/Globulin [Mass ratio] 1.0 {ratio} Normal [facility] Comment on above: Performed By: #### C VDTBH #### [facility] [address] [place] [address] Dr. Rich Cutler ALP [Catalytic activity/Vol] 91 U/L Normal 46-116 [facility] Comment on above: Performed By: #### C VDTBH #### [facility] [address] [place] [address] Dr. Rich Cutler ALT [Catalytic activity/Vol] 47 U/L Normal 14-59 [facility] Comment on above: Performed By: #### C VDTB #### [facility] [address] [address] [address] Rich Cutler Anion gap [Moles/Vol] 11.7 mmol/L Normal [facility] Comment on above: Performed By: #### C VDTBH #### [facility] [address] [address] [address] Rich Cutler AST [Catalytic activity/Vol] 24 U/L Normal 15-37 [facility] Comment on above: Performed By: #### C VDTBH #### [facility] [address] [address] [address] Rich Cutler Bilirubin [Mass/Vol] 0.2 mg/dL Normal 0.2-1.0 [facility] Comment on above: Performed By: #### C VDTBH #### [facility] [address] [place] [address] Dr. Rich Cutler Calcium [Mass/Vol] 8.9 mg/dL Normal 8.5-10.1 [facility] Comment on above: Performed By: #### C VDTBH #### [facility] [address] [place] [address] Dr. Rich Cutler Chloride [Moles/Vol] 105 mmol/L Normal 98-107 [facility] Comment on above: Performed By: #### C VDTBH #### [facility] [address] [place] [address] Dr. Rich Cutler CO2 [Moles/Vol] 28.1 mmol/L Normal 21.0-32.0 [facility] Comment on above: Performed By: #### C VDTBH #### [facility] [address] [place] [address] Dr. Rich Cutler Creatinine [Mass/Vol] 1.13 mg/dL Critically high 0.55-1.02 [facility] Comment on above: Performed By: #### C VDTBH #### [facility] [address] [address] [address] Rich Cutler EGFR-AF ARMENIAN 60 mL/min/1.73m2 Normal >=60 [facility] Comment on above: Performed By: #### C VDTBH #### [facility] [address] [address] [address] Rich Cutler EGFR-NON AF ARMENIAN 49 mL/min/1.73m2 Critically low >=60 [facility] Comment on above: Performed By: #### C VDTBH #### [facility] [address] [address] [address] Rich Cutler Globulin (S) [Mass/Vol] 3.5 g/dL Normal [facility] Comment on above: Performed By: #### C VDTBH #### [facility] [address] [address] [address] Rich Cutler Glucose [Mass/Vol] 119 mg/dL Critically high 74-106 [facility] Comment on above: Performed By: #### C VDTBH #### [facility] [address] [place] [address] Dr. Rich Cutler Potassium [Moles/Vol] 3.8 mmol/L Normal 3.5-5.1 [facility] Comment on above: Performed By: #### C VDTBH #### [facility] [address] [place] [address] Dr. Rich Cutler Protein [Mass/Vol] 7.0 g/dL Normal 6.4-8.2 [facility] Comment on above: Performed By: #### C VDTBH #### [facility] [address] [place] [address] Dr. Rich Cutler Sodium [Moles/Vol] 141 mmol/L Normal 136-145 [facility] Comment on above: Performed By: #### C VDTBH #### [facility] [address] [place] [address] Dr. Rich Cutler Urea nitrogen [Mass/Vol] 16.0 mg/dL Normal 7.0-18.0 [facility] Comment on above: Performed By: #### C VDTBH #### [facility] [address] [address] [address] Rich Cutler Urea nitrogen/Creatinine [Mass ratio] 14.2 mg/mg Normal [facility] Comment on above: Performed By: #### C VDTBH #### [facility] [address] [address] [address] Rich Cutler TROPONIN, HIGH SENSITIVITYon 09-24-2022 HSTROP 10.6 pg/mL Normal 4.0-51.3 [facility] Comment on above: Result Comment: CUT- OFF POINTS HAVE BEEN ESTABLISHED BASED ON THE FOURTH UNIVERSAL DEFINITIONS OF MYOCARDIAL INFARCTION. THE UPPER REFERENCE LIMIT (URL) OF TROPONIN, DEFINED THE 99TH PERCENTILE OF cTnI DISTRIBUTION IN A REFERENCE POPULATION, HAS BEEN CONFIRMED THE DECISION THRESHOLD FOR CT DIAGNOSIS. Performed By: #### C VDTBH #### [facility] [address] [place] [address] Dr. Rich Cutler XR CHEST 1 Von [...] HUMPHRIES Date: 2022-09-24 04:08 Normal [facility] CBC AUTO DIFFon 09-23-2022 BASO # 0.1 103/ul Normal 0.0-0.1 [facility] Comment on above: Performed By: #### C BC #### [facility] [address] [place] [address] Dr. Rich Cutler Basophils/100 WBC (Bld) 0.8 % Normal 0.2-2.0 [facility] Comment on above: Performed By: #### C BC #### [facility] [address] [place] [address] Dr. Rich Cutler EO # 0.2 103/ul Normal 0.0-0.7 [facility] Comment on above: Performed By: #### C BC #### [facility] [address] [place] [address] Dr. Rich Cutler Eosinophils/100 WBC (Bld) 3.5 % Normal 0.9-7.0 [facility] Comment on above: Performed By: #### C BC #### [facility] [address] [place] [address] Dr. Rich Cutler Erythrocyte distribution width (RBC) [Ratio] 13.4 % Normal 11.0-15.0 [facility] Comment on above: Performed By: #### C BC #### [facility] [address] [place] [address] Dr. Rich Cutler Hematocrit (Bld) [Volume fraction] 42.3 % Normal 36.0-48.0 [facility] Comment on above: Performed By: #### C BC #### [facility] [address] [place] [address] Dr. Rich Cutler Hemoglobin (Bld) [Mass/Vol] 13.4 g/dL Normal 12.0-16.0 [facility] Comment on above: Performed By: #### C BC #### [facility] [address] [place] [address] Dr. Rich Cutler IG # 0.03 10e3/ul Normal 0.00-0.03 [facility] Comment on above: Performed By: #### C BC #### [facility] [address] [place] [address] Dr. Rich Cutler IG % 0.5 % Normal 0.0-0.5 [facility] Comment on above: Performed By: #### C BC #### [facility] [address] [place] [address] Dr. Rich Cutler LYMPH # 2.9 103/ul Normal 1.2-3.8 [facility] Comment on above: Performed By: #### C BC #### [facility] [address] [place] [address] Dr. Rich Cutler Lymphocytes/100 WBC (Bld) 44.0 % Normal 20.5-60.0 [facility] Comment on above: Performed By: #### C BC #### [facility] [address] [place] [address] Dr. Rich Cutler MANUAL DIFF REQ NO Normal [facility] Comment on above: Performed By: #### C BC #### [facility] [address] [place] [address] Dr. Rich Cutler MCH (RBC) [Entitic mass] 28.4 pg Normal 26.7-34.0 [facility] Comment on above: Performed By: #### C BC #### [facility] [address] [place] [address] Dr. Rich Cutler MCHC (RBC) [Mass/Vol] 31.7 g/dL Normal 29.9-35.2 [facility] Comment on above: Performed By: #### C BC #### [facility] [address] [place] [address] Dr. Rich Cutler MCV (RBC) [Entitic vol] 89.6 fL Normal 81.0-99.0 [facility] Comment on above: Performed By: #### C BC #### [facility] [address] [place] [address] Dr. Rich Cutler MONO # 0.4 103/ul Normal 0.3-0.8 [facility] Comment on above: Performed By: #### C BC #### [facility] [address] [place] [address] Dr. Rich Cutler Monocytes/100 WBC (Bld) 6.6 % Normal 1.7-12.0 [facility] Comment on above: Performed By: #### C BC #### [facility] [address] [place] [address] Dr. Rich Cutler NEUT # 2.9 103/ul Normal 1.4-6.5 [facility] Comment on above: Performed By: #### C BC #### [facility] [address] [place] [address] Dr. Rich Cutler Neutrophils/100 WBC (Bld) 44.6 % Normal 43.0-75.0 [facility] Comment on above: Performed By: #### C BC #### [facility] [address] [place] [address] Dr. Rich Cutler Platelet mean volume (Bld) [Entitic vol] 11.0 fL Normal 9.5-13.5 [facility] Comment on above: Performed By: #### C BC #### [facility] [address] [place] [address] Dr. Rich Cutler PLT 272 103/ul Normal 150-450 [facility] Comment on above: Performed By: #### C BC #### [facility] [address] [place] [address] Dr. Rich Cutler RBC 4.72 106/ul Normal 4.20-5.40 [facility] Comment on above: Performed By: #### C BC #### [facility] [address] [place] [address] Dr. Rich Cutler WBC 6.5 103/ul Normal 4.0-11.0 [facility] Comment on above: Performed By: #### C BC #### [facility] [address] [place] [address] Dr. Rich Cutler FREE THYROXINE INDEX T7on FTI 2.16 Normal 1.30-4.50 [facility] Comment on above: Performed By: #### L IPID, TSH, T7, CMP #### [facility] [address] [place] [address] Dr. Rich Cutler T3U 30.0 % Normal 30.0-39.0 [facility] Comment on above: Performed By: #### L IPID, TSH, T7, CMP #### [facility] [address] [place] [address] Dr. Rich Cutler T4 [Mass/Vol] 7.20 ug/dL Normal 4.80-13.90 [facility] Comment on above: Performed By: #### L IPID, TSH, T7, CMP #### [facility] [address] [place] [address] Dr. Rich Cutler GLYCOHEMOGLOBIN A1Con 2021 ADA RECOMMENDATION SEE BELOW Normal [facility] Comment on above: Result Comment: ADA RECOMMENDED LIMIT 4.0 - 6.0 ADA THERAPEUTIC TARGET < 7.0 ACTION SUGGESTED > 7.0 Performed By: #### A 1C #### [facility] [address] [address] [address] Rich Cutler Glucose [Mass/Vol] 128 mg/dL Normal [facility] Comment on above: Performed By: #### A 1C #### [facility] [address] [place] [address] Dr. Rich Cutler HbA1c (Bld) [Mass fraction] 6.1 % Normal 4.5-6.2 [facility] Comment on above: Performed By: #### A 1C #### [facility] [address] [place] [address] Dr. Rich Cutler IRONon 09-23-2022 Iron [Mass/Vol] 64.0 ug/dL Normal 50.0-170.0 [facility] Comment on above: Performed By: #### C VDTBH #### [facility] [address] [place] [address] Dr. Rich Cutler LIPID PROFILEon 09-23-2022 CHOL-HDL RATIO NORM SEE BELOW Normal [facility] Comment on above: Result Comment: 3.3 - 4.4 LOW RISK 4.4 - 7.1 AVERAGE RISK 7.1 - 11.0 MODERATE RISK >11.0 HIGH RISK Performed By: #### L IPID, TSH, T7, CMP #### [facility] [address] [place] [address] Dr. Rich Cutler Cholesterol [Mass/Vol] 237 mg/dL Critically high <=200 [facility] Comment on above: Performed By: #### L IPID, TSH, T7, CMP #### [facility] [address] [place] [address] Dr. Rich Cutler Cholesterol in HDL [Mass/Vol] 44 mg/dL Normal 40-60 [facility] Comment on above: Performed By: #### L IPID, TSH, T7, CMP #### [facility] [address] [place] [address] Dr. Rich Cutler Cholesterol in LDL [Mass/Vol] 172.2 mg/dL Normal [facility] Comment on above: Performed By: #### L IPID, TSH, T7, CMP #### [facility] [address] [address] [address] Rich Cutler Cholesterol.total/C holesterol in HDL [Mass ratio] 5.4 {ratio} Normal [facility] Comment on above: Performed By: #### L IPID, TSH, T7, CMP #### [facility] [address] [place] [address] Dr. Rich Cutler HDL NORMAL > or = 60 mg/dl - LO W CARDIOVASCULAR RISK <40 mg/dl - HIGH CARDIOVASCULAR RISK Normal [facility] Comment on above: Performed By: #### L IPID, TSH, T7, CMP #### [facility] [address] [address] [address] Rich Cutler LDL CALC NORMAL SEE BELOW Normal [facility] Comment on above: Result Comment: <100 mg/dl OPTIMAL 100 - 129 mg/dl NEAR OR ABOVE OPTIMAL 130 - 159 mg/dl BORDERLINE HIGH 160 - 189 mg/dl HIGH >190 mg/dl VERY HIGH Performed By: #### L IPID, TSH, T7, CMP #### [facility] [address] [place] [address] Dr. Rich Cutler Triglyceride [Mass/Vol] 104 mg/dL Normal <=150 [facility] Comment on above: Performed By: #### L IPID, TSH, T7, CMP #### [facility] [address] [place] [address] Dr. Rich Cutler VLDL CALC 20.8 mg/dL Normal [facility] Comment on above: Performed By: #### L IPID, TSH, T7, CMP #### [facility] [address] [place] [address] Dr. Rich Cutler PROF 14(COMP METB)on 022 Albumin [Mass/Vol] 3.5 g/dL Normal 3.4-5.0 [facility] Comment on above: Performed By: #### L IPID, TSH, T7, CMP #### [facility] [address] [place] [address] Dr. Rich Cutler Albumin/Globulin [Mass ratio] 0.9 {ratio} Normal [facility] Comment on above: Performed By: #### L IPID, TSH, T7, CMP #### [facility] [address] [address] [address] Rich Cutler ALP [Catalytic activity/Vol] 93 U/L Normal 46-116 [facility] Comment on above: Performed By: #### L IPID, TSH, T7, CMP #### [facility] [address] [address] [address] Rich Cutler ALT [Catalytic activity/Vol] 44 U/L Normal 14-59 [facility] Comment on above: Performed By: #### L IPID, TSH, T7, CMP #### [facility] [address] [place] [address] Dr. Rich Cutler Anion gap [Moles/Vol] 8.5 mmol/L Normal [facility] Comment on above: Performed By: #### L IPID, TSH, T7, CMP #### [facility] [address] [place] [address] Dr. Rich Cutler AST [Catalytic activity/Vol] 26 U/L Normal 15-37 [facility] Comment on above: Performed By: #### L IPID, TSH, T7, CMP #### [facility] [address] [address] [address] Rich Cutler Bilirubin [Mass/Vol] 0.3 mg/dL Normal 0.2-1.0 [facility] Comment on above: Performed By: #### L IPID, TSH, T7, CMP #### [facility] [address] [address] [address] Rich Cutler Calcium [Mass/Vol] 9.0 mg/dL Normal 8.5-10.1 [facility] Comment on above: Performed By: #### L IPID, TSH, T7, CMP #### [facility] [address] [address] [address] Rich Cutler Chloride [Moles/Vol] 106 mmol/L Normal 98-107 [facility] Comment on above: Performed By: #### L IPID, TSH, T7, CMP #### [facility] [address] [address] [address] Rich Cutler CO2 [Moles/Vol] 31.0 mmol/L Normal 21.0-32.0 [facility] Comment on above: Performed By: #### L IPID, TSH, T7, CMP #### [facility] [address] [address] [address] Rich Cutler Creatinine [Mass/Vol] 1.11 mg/dL Critically high 0.55-1.02 [facility] Comment on above: Performed By: #### L IPID, TSH, T7, CMP #### [facility] [address] [place] [address] Dr. Rich Cutler EGFR-AF ARMENIAN >60 Normal >=60 [facility] Comment on above: Performed By: #### L IPID, TSH, T7, CMP #### [facility] [address] [place] [address] Dr. Rich Cutler EGFR-NON AF ARMENIAN 50 mL/min/1.73m2 Critically low >=60 [facility] Comment on above: Performed By: #### L IPID, TSH, T7, CMP #### [facility] [address] [place] [address] Dr. Rich Cutler Globulin (S) [Mass/Vol] 3.7 g/dL Normal [facility] Comment on above: Performed By: #### L IPID, TSH, T7, CMP #### [facility] [address] [place] [address] Dr. Rich Cutler Glucose [Mass/Vol] 121 mg/dL Critically high 74-106 [facility] Comment on above: Performed By: #### L IPID, TSH, T7, CMP #### [facility] [address] [place] [address] Dr. Rich Cutler Potassium [Moles/Vol] 4.5 mmol/L Normal 3.5-5.1 [facility] Comment on above: Performed By: #### L IPID, TSH, T7, CMP #### [facility] [address] [place] [address] Dr. Rich Cutler Protein [Mass/Vol] 7.2 g/dL Normal 6.4-8.2 [facility] Comment on above: Performed By: #### L IPID, TSH, T7, CMP #### [facility] [address] [address] [address] Rich Cutler Sodium [Moles/Vol] 141 mmol/L Normal 136-145 [facility] Comment on above: Performed By: #### L IPID, TSH, T7, CMP #### [facility] [address] [address] [address] Rich Cutler Urea nitrogen [Mass/Vol] 16.0 mg/dL Normal 7.0-18.0 [facility] Comment on above: Performed By: #### L IPID, TSH, T7, CMP #### [facility] [address] [address] [address] Rich Cutler Urea nitrogen/Creatinine [Mass ratio] 14.4 mg/mg Normal [facility] Comment on above: Performed By: #### L IPID, TSH, T7, CMP #### [facility] [address] [address] [address] Rich Cutler TSHon 09-23-2022 TSH 3.915 uIU/mL Critically high 0.358-3.740 [facility] Comment on above: Performed By: #### L IPID, TSH, T7, CMP #### [facility] [address] [place] [address] Dr. Rich Cutler Physician Referralon 022 Physician Referral [phone] [id number] Normal [facility] Lipid Panelon 10-07-2021 Cholesterol [Mass/Vol] 205 mg/dL High 140-200 [facility] Comment on above: Result Comment: Chol less than 200 mg/dl low risk Chol 201-239 mg/dl borderline risk Chol 240 mg/dl and greater high risk Performed By: #### L IPID, [id number], TSH3 wRFLX #### [address] Cholesterol in HDL [Mass/Vol] 25 mg/dL Low 35-85 [facility] Comment on above: Result Comment: HDL CHOL ATP-III CLASSIFICATION Cardiovascular Risk HDL > or equal to 60 mg/dL LOW HDL < 40 mg/dL HIGH Performed By: #### L IPID, [id number], TSH3 wRFLX #### [facility] [address] Cholesterol.total/C holesterol in HDL [Mass ratio] 8.2 {ratio} Normal <5.0 [facility] Comment on above: Performed By: #### L IPID, [id number], TSH3 wRFLX #### [facility] [address] LDL Cholesterol,Calcula coby 160 mg/dL High 0-100 [facility] Comment on above: Result Comment: LDL ATP III CLASSIFICATION LDL less than 100 mg/dL Optimal LDL 100-129 mg/dL Near or above optimal LDL 130-159 mg/dL Borderline high LDL 160-189 mg/dL High LDL greater than 189 mg/dL Very high Performed By: #### L IPID, [id number], TSH3 wRFLX #### [address] Triglyceride w/Reflex 100 mg/dL Normal 35-149 [facility] Comment on above: Result Comment: TRIG ATP III CLASSIFICATION TRIG less than 150 mg/dL Normal TRIG 150-199 mg/dL Borderline high TRIG 200-500 mg/dL High TRIG greater than 500 mg/dL Very high Standard traceable to the Center for Disease Conrtrol and Prevention (CDC) test method. Performed By: #### L IPID, [id number], TSH3 wRFLX #### [facility] [address] [place] [address] VLDL CHOLESTEROL 20 mg/dL Normal [facility] Comment on above: Performed By: #### L IPID, [id number], TSH3 wRFLX #### [facility] [address] Thyroid Stim Hormone w/Rflxo n 10-07-2021 Thyroid Stim Hormone w/Rflx 3.27 u[iU]/mL Normal 0.45-5.33 [facility] Comment on above: Performed By: #### L IPID, [id number], TSH3 wRFLX #### [facility] [address] [place] [address] [facility] Vitamin D 25 Hydroxy Totalon 10-07-2021 Vitamin D 25 Hydroxy Total 26.5 ng/mL Low 30-100 [facility] Comment on above: Result Comment: JACKELINE MIN D STATUS 25(OH)VITAMIN D RANGE (ng/mL) Deficient <20 Insufficient 20 to <30 Sufficient 30 to 100 Reference: Lanny MF,Gino NC, Dyan VALENZUELA, et al. Evaluation,treatment, and prevention of vitamin D deficiency; an Endocrine Society clinical practice guideline. JCEM. 2010; 96(7):1911-30. PERFORMED BY: [place] [address] PATHOLOGIST COMPUTER SYSTEM SPECIALIST SILVESTRE SCHULER M.D. Performed By: #### L IPID, [id number], TSH3 wRFLX #### [address] [place] [id number] [facility] Vital Signs Date Time Vital Sign Value Performing Clinician Deidre gagnon 10-06-2022 15:36-0500 Blood Pressure Location Umm GEORGIEL [facility] 10-06-2022 15:36-0500 Diastolic blood pressure 86 mm[Hg] Umm JACQUESL [facility] 10-06-2022 15:36-0500 Heart rate 72 /min Umm JACQUESL [facility] 10-06-2022 15:36-0500 Respiratory rate 16 /min Umm JACQUESL [facility] 10-06-2022 15:36-0500 Systolic blood pressure 126 mm[Hg] Umm JACQUESL [facility] Encounters Encounter Date Encounter Type Care Provider Facility Start: 07-20-2024 ambulatory RICHA [facility] Start: 07-18-2024 ambulatory FENG CHRISTIE [facility] Start: 07-18-2024 End: 07-18-2024 Emergency department patient visit HERMINIA LI [facility] Start: 07-18-2024 End: 07-18-2024 ambulatory MESERET MAC [facility] Start: 07-11-2024 Evaluation and manag ement of inpatient [facility] Start: 07-11-2024 Evaluation and manag ement of inpatient [facility] Start: 07-11-2024 Emergency department patient visit FEDERICA ANDERSON [facility] Start: 07-11-2024 End: 07-12-2024 [facility]: [facility]-10[facility] End: 07-10-2024 ambulatory [facility] Start: 06-30-2024 Evaluation and manag ement of inpatient [facility] Start: 06-30-2024 Evaluation and manag ement of inpatient [facility] Start: 06-29-2024 End: 07-01-2024 Evaluation and management of inpatient KENDRA MURILLO [facility] Start: 06-21-2024 End: [facility]: 05-26-2024 End: 05-26-2024 ambulatory [facility] Start: 11-26-2022 Encounter for preprocedural laboratory examination DR UMM MARTÍNEZ . [facility] Start: 11-25-2022 End: 11-26-2022 ambulatory Umm MARTÍNEZ Facility:[id number] Start: 11-20-2022 End: 11-21-[address] UMM MARTÍNEZ . Facility: Start: 11-20-2022 End: 11-21-2022 Encounter for preprocedural laboratory examination DR UMM MARTÍNEZ . Facility: Start: 10-06-2022 End: 10-07-2022 ambulatory Umm MARTÍNEZ Facility:[facility] Start: 10-06-2022 End: 10-06-2022 Patient encounter procedure Umm MARTÍNEZ [facility] Start: 10-02-2022 End: 10-03-[address] KENDRA MURILLO . Facility:[facility] Start: 09-30-2022 End: 10-01-[address] KENDRA MURILLO . Facility:[facility] Start: 09-28-2022 Encounter for genera l adult medical examination without abnormal findings DR KENDRA MURILLO . [facility] Start: 09-24-2022 End: 09-24-[address] [...] mRNA BNT-162b2 vax Umm NILL [facility] 03-11-2021 SARS-CoV-2 (COVID-19 ) mRNA BNT-162b2 vax Umm NILL [facility] Payers Date Payer Category Payer Medicaid [id number] 1965 Unknown [id number] 2.16.8 [id number] 1965 Unknown [id number] 2.16.8 [id number] 1965 Unknown [id number] 2.16.84 [id number] 1965 Unknown [id number] 2.16.84 [id number] 1965 Unknown [id number] 2.16.84 [id number] 1965 Unknown [id number] 2.16.84 [id number] 1965 Unknown [id number] 2.16.84 [id number] 1965 Unknown [id number] 2.16.84 [id number] 1965 Unknown [id number] 2.16.84 [id number] 1960 Self-pay [id number] 1960 Unknown [id number] Social History Date Type Detail Facility Start: 10-06-2022 Tobacco smoking status Ex-smoker (fi nding) [facility] Tobacco smoking status Never [facility] Sex Assigned At Female [facility] Functional Status Date Assessment Result Facility [...] Age: 59 y.o. : 1965 Account No.: [id number] Referring physician: Dr. Jarocho Saldaña Chief complaint: RML nodule HPI Aby Madrigal is a 59 y.o. female with hypertension, CAD status post PCI recently in June 2024,, cigarette smoking who is presenting to IP clinic via telemedicine as a new patient after being referred by Dr. Jarocho Saldaña. Patient reports recent admission to [facility] for hypertensive emergency. This prompted a CT of the chest which was positive for right middle lobe nodule. She then underwent PCI here at [facility] in June. She is currently on [...] PFTs on file. CTA chest 04/21/2024 at [facility]: Right middle lobe approximately 1 cm spiculated nodule appreciated Subsequent PET CT 2024 at [facility]: Right middle lobe nodule is faintly PET avid Past Medical History: Diagnosis Date Abnormal ECG Diabetes mellitus (CMS/HCC) Hyperlipidemia Hypertension Obstructive sleep apnea Panic attacks Stroke ([facility]/HCC) Past Surgical History: Procedure Laterality Date CEREBRAL [...] alcohol. She reports (more content not included)... [facility] 07-18-2024 Note REASON FOR VISIT [...] metoprolol - CT A/P Jun 2019 in [place], [place] performed for abd pain, incidentally detected [...] History: Diagnosis Date Abnormal ECG Diabetes mellitus ([facility]) Hyperlipidemia Hypertension Obstructive sleep apnea Panic attacks Stroke ([facility]) Past Surgical History: Procedure Laterality Date CEREBRAL [...] Rfl: carvedilol (C (more content not included)... [facility] 07-18-2024 Note 07/18/24 1001 Referral Data Referral Source personal service workers Referral Reason Information Patient Information Primary Caregiver Self Activities of Daily Living Assistive Device Not applicable Living Arrangement (Current/Prior to Hospitalization) Private residence Behavior Oriented Discharge Planning Support Systems Children;Family members Type of Residence Private residence Patient's goal for discharge home Patient recently discharged from [facility] to home. Resides at home alone. Discharge plan is home. [facility] 07-18-2024 Note Patient sent to ED f or hypotension and dizziness/lightheadedness [facility] 07-12-2024 Note Hospital Medicine Discharge Summary Final Discharge Diagnosis: NSTEMI Admission Diagnosis: Hypokalemia [E87.6] NSTEMI (non-ST elevated myocardial infarction) (CMS/HCC) [I21.4] Hypertensive urgency [I16.0] Adenoma of left adrenal gland [D35.02] Resistant hypertension [I1A.0] Atherosclerosis of [place] coronary artery of [place] heart without angina pectoris [I25.10] Coronary artery disease involving [place] coronary artery of [place] heart with unstable angina pectoris (CMS/HCC) [I25.110] Type 2 diabetes mellitus without complication, without long-term current use of insulin ([facility]) [E11.9] Hospital course: 59yoF with CAD s/p LAD SARKIS 11 days ago who was admitted to [facility] on 07/11 for chest pain. patient initially presented to [facility] for uncomfortable feeling in her chest and was found to have elevated troponins and new ischemic changes on EKG. Infusion and cardiology was consulted transferred to [facility] for further evaluation. Initially the patient had blood pressures up to 192/65 for which home medications were restarted. Troponins at [facility] were negative and there were no EKG changes concerning for ischemia. Echo was performed which showed EF 70 to 75%. she was cleared from cardiology for discharge and had resolved. Surgical, Invasive or Diagnostic Procedures Done During Admission: None Consultations During Admission: Cardiology Dear Dr. Lidia MD, [facility] is advised to follow up with [...] Center 07/18/2024 8:20 AM Feng Christie MD [facility] ENDOCR [facility] 07/20/2024 1:00 PM Richa Viramontes MD [facility] ONC [facility] 09/05/2024 1:00 PM Bijan Mitchell MD [facility] Your medication list START taking [...] Your Medications These medications were sent to [facility]/pharmacy #[id number] [place], [place] [address] [facility] [address] [facility] [id number] isosorbide mononitrate ER 60 mg 24 hr [...] activity In process (more content not included)... [facility] 07-11-2024 Note 07/11/24 1817 Financial [...] place to sleep or slept in a penitentiary (including now)? N Transportation Needs In the [...] than 3 How often do you attend latter-day or denominational services? Never Do you belong to any clubs or organizations such as latter-day groups, unions, fraternal or athletic groups, or [...] off services in your home? No 07/11/24 9672 Referral Data Referral Source personal service workers Referral Reason Psychosocial assessment Patient Information Primary Caregiver Self Accompanied by/Relationship Daughter (Rosita); Cietgcib-to-zyr (Yesy) Activities of Daily Living Assistive Device Not applicable Living Arrangement (Current/Prior to Hospitalization) Private residence (Lives at home by herself) Ambulation Independent Dressing Independent Feeding Independent Behavior Oriented (A&Ox4) Communication Can write;Talks;Understands speaking;Understands Welsh;Reads Income Information Income Source Unemployed (receives survivor benefits) Discharge Planning Support Systems Children;Family members (daughter, rxpzizwi-hb-spj, son) Type of Residence Private residence Will patient need Precert for Post Acute needs? No Patient's goal for discharge Home Does the patient need discharge transport arranged? No Completed social work assessment and SDoH screening. Patient was A&Ox4 at this time. Patient's daughter, Rosita, and patient's qbfgwryg-wy-kax, Yesy, were currently present at bedside. Patient reported that she lives at home by herself and she identified her support system as her daughter, Rosita, her sthpdjhe-jt-fkw, Yesy, and her son, Elie. Patient endorsed [...] any alcohol consumption or recreational drug use. [facility] 07-11-2024 Note Hospital Medicine History and Physical 07/11/2024 12:19 PM THE HOSPITALIST TEAM PREFERS TO USE [employer] CHAT FOR COMMUNICATION 7AM-7PM. IF I DO NOT RESPOND WITHIN 15 MINUTES, PLEASE PAGE ME/CALL THROUGH THE ACCESSIONER. FROM 7PM-7AM, PLEASE PAGE [phone](COVR) Chief Complaint Chief Complaint Patient presents with [...] s/p stent placement 11 days ago at [facility] presented to ER as a transfer from [facility] for NSTEMI. Patient states that last [...] Noted Hypokalemia 07/11/2024 Coronary artery disease involving [place] coronary artery of [place] heart with unstable angina pectoris ([facility]) 07/11/2024 Anxiety 06/30/2024 Type 2 diabetes mellitus without complication, without long-term current use of insulin ([facility]) 06/30/2024 Chest pain 06/30/2024 Elevated troponin 06/30/2024 Hypertensive urgency 06/30/2024 Hypomagnesemia 06/30/2024 QURESHI (dyspnea on exertion) 05/26/2024 Atherosclerosis of [place] coronary artery of [place] heart without angina pectoris 05/26/2024 Hyperlipidemia 05/26/2024 Murmur, heart 05/26/2024 Sepsis ([facility]) 07/14/2019 BV (bacterial vaginosis) 10/18/2017 GERD (gastroesophageal reflux disease) 10/18/2017 Essential hypertension 10/18/2017 TIA (transient ischemic attack) 10/18/2017 NSTEMI (non-ST elevated myocardial infarction) ([facility]) 06/29/2024 Assessment and Plan NSTEMI CAD, s/p [...] for GI prophylaxis (more content not included)... [facility] 07-10-2024 Note [facility] Note Reason for cardiology [...] Take 1 tablet (more content not included)... [facility] 07-01-2024 Note Hospital Medicine Discharge [...] IBS presents a direct mission from [facility] with a chief complaint of chest [...] on her EKG. She went to [facility] for the symptoms. Labs were completed [...] on a heparin drip and transferred to [facility] for likely cardiac cath. # [...] - Continue metformin. Dear Dr. Lidia MD, [facility] is advised to follow up with [...] Your Medications These medications were sent to [facility]/pharmacy #[id number] [address] carvedilol 25 mg tablet cloNIDine 0.1 mg [...] days Lab Units (more content not included)... [facility] 07-01-2024 Note [facility] CARDIOLOGY INPAT IENT PROGRESS NOTE Reason for follow up: NSTEMI Subjective Aby Madrigal, a 59 y.o. female patient, is transferred from [facility] for continuity of care. Patient reports that 3 days ago, she woke up in the mid of the night with indigestion, and a feeling fullness, but no pressure like chest pain. She presented to [facility], where she was found to be [...] 0.56 06/29/2024 E (more content not included)... [facility] 06-30-2024 Note Patient: Aby antony Procedure Information Date/Time: 06/30/24 1600 Procedure: Coronary angiography (Bilateral) Location: [facility] INSTANT [employer] PROCESSING SUPERVISOR 3 / [facility] (Cath) Providers: Brunilda Cuellar [...] Plan discussed with attending. Additional Equipment Requests [facility] 06-30-2024 Note 06/30/24 1446 Referral Data Referral Source personal service workers Referral Reason Follow up;Information Patient Information Primary Caregiver Self Accompanied by/Relationship daughters at bedside Activities of Daily Living Assistive Device Not applicable Living Arrangement (Current/Prior to Hospitalization) Private residence (three to four stairs) Ambulation Independent Dressing Independent Feeding Independent Behavior Oriented Communication Talks;Understands speaking;Understands Welsh Discharge Planning Support Systems Children (daughters will [...] questions for social work at this time. [facility] 06-30-2024 Note 06/30/24 1431 Admission [...] to send link and activate MyChart? No [facility] 06-30-2024 Note Case was discussed w ith the SALVADOR on 06/29/2024. I agree with the history, physical, assessment, and plan of care. I discussed the findings and therapeutic plan. I agree with the documentation, except for any updates below. Maurice Nogueira MD [facility] 06-30-2024 Note Hospital Medicine History and Physical 06/30/2024 1:15 AM THE HOSPITALIST TEAM PREFERS TO USE [employer] CHAT FOR COMMUNICATION 7AM-7PM. IF I DO NOT RESPOND WITHIN 15 MINUTES, PLEASE PAGE ME/CALL THROUGH THE ACCESSIONER. FROM 7PM-7AM, PLEASE PAGE [phone](COVR) Chief Complaint Direct admission from [facility] with CP History of Present Illness Aby Madrigal is an 59 y.o. female who came from home with past medical history of anxiety, DM2, hypertension, IBS presents a direct mission from [facility] with a chief complaint of chest [...] on her EKG. She went to [facility] for the symptoms. Labs were completed [...] on a heparin drip and transferred to [facility] for likely cardiac cath. Review [...] complication, without long-term current use of insulin ([facility]) 06/30/2024 Chest pain 06/30/2024 Elevated troponin 06/30/2024 Hypertensive urgency 06/30/2024 QURESHI (dyspnea on exertion) 05/26/2024 Atherosclerosis of [place] coronary artery of [place] heart without angina pectoris 05/26/2024 Hyperlipidemia 05/26/2024 Murmur, heart 05/26/2024 Sepsis ([facility]) 07/14/2019 BV (bacterial vaginosis) 10/18/2017 GERD (gastroesophageal reflux disease) 10/18/2017 Essential hypertension 10/18/2017 TIA (transient ischemic attack) 10/18/2017 Assessment and Plan Aby Madrigal is an 59 y.o. female who came from home with past medical history of anxiety, DM2, hypertension, IBS presents a direct mission from [facility] with a chief complaint of chest pain. #Chest pain #Elevated troponin Troponin 0.1, will continue to trend -Patient continues to have mild chest discomfort upon arrival -Continue heparin drip -CXR negative for acute process at OSH -EKG showing normal sinus rhythm -N.p.o. for possible right and left cardiac cath in a.m. -Patient with new diastolic dysfunction on echoc (more content not included)... [facility] 06-21-2024 Note DC Cardiology - [facility] Subjective Aby Madrigal is a 59 y.o. year old female patient being seen for follow up [facility] ED per Dr. Murillo. She has [...] attack) QURESHI (dyspnea on exertion) Atherosclerosis of [place] coronary artery of [place] heart without angina pectoris Hyperlipidemia Murmur, heart [...] Judgment: Judgment no (more content not included)... [facility] 05-26-2024 Note [facility] Note Reason for cardiology [...] PSYCH: appropriate mood, (more content not included)... [facility] 11-25-2022 Note OPERATIVE NOTE OPERATION [...] years. CC: Kendra Murillo M.D. [facility] 10-11-2022 Note Chief Complaint consultation for [...] 1 tab(s), Oral, (more content not included)... [facility] Comment on above: Result Comment: Elec tronically Signed By: DIPESH BUCKNER, Umm Valetne.germania\Date and Time Signed: 10/11/22 11:01 EST Evaluation + Plan note No data available for this section [facility] Discharge instructions No data available for [...] section and content) DATE CREATED AUTHOR 12/17/2021 [facility] DATE CREATED AUTHOR AUTHOR'S ORGANIZ ATION 12/16/2022 [facility] DATE CREATED AUTHOR AUTHOR'S ORGANIZ ATION 03/26/2023 [facility] DATE CREATED AUTHOR AUTHOR'S ORGANIZ ATION 07/24/[address] [facility] Patient Care team informatio n (unrecognized section and content) Personnel Name: Kendra Murillo MD Address: Address: [address] [place] [address] Personnel Name: Kendra Murillo MD Address: Address: [address] [place] [address] FOR RECORDS PERTAINING TO PATIENTS WHO ARE [...] BE BASED ON THE PRIMARY CLINICAL RECORDS. [facility]. provides no warranty or guarantee of the accuracy or completeness of information in this document.
--- NOTE | 2024-07-31 16:49 | ECG_ITS ---
[facility] [place] Test Date: 2024-07-31 Pat Name: MILAN RASMUSSEN Department: Room: - Gender: Female Is Support Analyst: : 1965 Requested By: KENDRA MORAN Order Number: [id number] Reading MD: AMBER MAN Measurements Intervals [place] Rate: 85 P: 58 KS: 168 QRS: 26 QRSD: 88 T: 109 QT: 396 QTc: 438 Interpretive Statements 1100 Sinus rhythm [address] depression 4564 Twave abnormality, possible lateral ischemia 9150 abnormal ECG Electronically Signed On 08-03-2024 22:21:55 EDT by AMBER MAN
--- NOTE | 2024-07-31 16:52 | ED_ITS ---
HPI - Chest Pain General Chief Complaint: Chest Pain Stated Complaint: Chest Pain Time Seen by Provider: 07/31/24 16:32 Source: patient Mode of arrival: walk-in History of Present Illness HPI narrative: 59-year-old female presents for chest pain which started 45 minutes ago while she was sitting down. She has a history of CAD and had a stent placed a month ago. She states this is the first time that she has had pain like this since he r procedure. The pain is in the middle part of the sternum and it goes to the left side of her chest and down her left arm. She took her aspirin this morning. She did not have any nitroglycerin at home to take. The pain is moderate and continuous. No injury or shortness of breath Related Data Home Medications ?Medication ?Instructions ?Recorded ?Confirmed metformin 500 mg tablet 500 mg PO BID 04/21/24 07/31/24 aspirin 81 mg capsule 81 mg PO DAILY 04/22/24 07/31/24 clopidogrel 75 mg tablet 75 mg PO DAILY 07/01/24 07/31/24 pantoprazole 40 mg tablet,delayed 40 mg PO .ACB 07/20/24 07/31/24 release (Protonix) sennosides 8.6 mg-docusate sodium 1 tab-cap PO DAILY PRN constipation 07/20/24 07/28/24 50 mg tablet (Colace 2-In-1) losartan 100 mg tablet 100 mg PO DAILY 07/24/24 07/28/24 quetiapine 100 mg tablet (Seroquel) 50 mg PO .QHS 07/24/24 07/31/24 rosuvastatin 40 mg tablet 40 mg PO DAILY 07/24/24 07/31/24 isosorbide mononitrate 60 mg 60 mg PO DAILY 07/31/24 07/31/24 tablet,extended release 24 hr lorazepam 1 mg tablet (Ativan) 1 mg PO Q6H PRN anxiety 07/31/24 07/31/24 Previous Rx's ?Medication ?Instructions ?Recorded canagliflozin 100 mg tablet 100 mg PO QD #30 tabs 07/27/24 (Invokana) carvedilol 25 mg tablet 25 mg PO TID #90 tabs 07/27/24 hydralazine 50 mg tablet 50 mg PO TID #90 tabs 07/27/24 hydrochlorothiazide 25 mg tablet 25 mg PO QD #30 tabs 07/27/24 Allergies Allergy/AdvReac Type Severity Reaction Status Date / Time amlodipine Allergy Mild Headache Verified 07/20/24 16:34 alprazolam [From Xanax] AdvReac Severe Watery Eye Verified 07/20/24 16:34 Review of Systems ROS Narrative A ten point review of systems is negative except as noted above. [facility] Medical History (Updated 07/31/24 @ 18:30 by Juancarlos Long MD) CAD (coronary artery disease) ?I25.10 - Atherosclerotic heart disease of [place] coronary artery without angina pectoris (ICD-10) Hypertensive urgency ?I16.0 - Hypertensive urgency (ICD-10) HTN (hypertension) ?I10 - Essential (primary) hypertension (ICD-10) Hypertensive urgency ?I16.0 - Hypertensive urgency (ICD-10) Chest pain ?R07.9 - Chest pain, unspecified (ICD-10) Anxiety ?F41.9 - Anxiety disorder, unspecified (ICD-10) HTN (hypertension) ?I10 - Essential (primary) hypertension (ICD-10) Hypokalemia ?E87.6 - Hypokalemia (ICD-10) Hypertension, uncontrolled ?I10 - Essential (primary) hypertension (ICD-10) Chest pain ?R07.9 - Chest pain, unspecified (ICD-10) NSTEMI (non-ST elevated myocardial infarction) ?I21.4 - Non-ST elevation (NSTEMI) myocardial infarction (ICD-10) Shortness of breath ?R06.02 - Shortness of breath (ICD-10) Headache ?R51.9 - Headache, unspecified (ICD-10) Elevated d-dimer ?R79.89 - Other specified abnormal findings of blood chemistry (ICD-10) Hypertensive emergency ?I16.1 - Hypertensive emergency (ICD-10) Uncontrolled hypertension ?I10 - Essential (primary) hypertension (ICD-10) Irritable bowel syndrome ?K58.9 - Irritable bowel syndrome without diarrhea (ICD-10) H/O nephrolithotomy with removal of calculi ?Z98.890 - Other specified postprocedural states (ICD-10) ?Z87.442 - Personal history of urinary calculi (ICD-10) Kidney stone ?N20.0 - Calculus of kidney (ICD-10) Sepsis ?A41.9 - Sepsis, unspecified organism (ICD-10) H/O angiography ?Z92.89 - Personal history of other medical treatment (ICD-10) Lung nodule ?R91.1 - Solitary pulmonary nodule (ICD-10) Anxiety ?F41.9 - Anxiety disorder, unspecified (ICD-10) HTN (hypertension) ?I10 - Essential (primary) hypertension (ICD-10) Diabetes ?E11.9 - Type 2 diabetes mellitus without complications (ICD-10) TIA (transient ischemic attack) ?G45.9 - Transient cerebral ischemic attack, unspecified (ICD-10) Surgical History (Updated 07/24/24 @ 01:23 by Mamta Gauthier RN) H/O heart artery stent ?Z95.5 - Presence of coronary angioplasty implant and graft (ICD-10) History of appendectomy ?Z90.49 - Acquired absence of other specified parts of digestive tract (ICD- 10) H/O tubal ligation ?Z98.51 - Tubal ligation status (ICD-10) History of cholecystectomy ?Z90.49 - Acquired absence of other specified parts of digestive tract (ICD- 10) Family History (Updated 04/22/24 @ 01:15 by Stalin Kevin) Mother Family history of cancer Father MVA (motor vehicle accident) Brother Family history of stroke Social History (Updated 04/22/24 @ 01:26 by Stalin Kevin) Within the past year, how often did you have a drink containing alcohol: never Within the past year, how often did you have six or more drinks on one occasion: never Score interpretation: A score less than 3 is consistent with normal alcohol consumption. Smoking status: Former smoker Second hand tobacco smoke exposure: No Non-prescribed substance use: denies use Previous occupational history: no Known occupational exposures/hazards: No Highest level of school completed/degree received: high school graduate Do you want help with school or training: No Are you now , , , , never or living with a partner: In a typical week, how many times do you talk on the telephone with family, friends, or neighbors: 3 or more times per week How often do you get together with friends or relatives: 3 or more times per week How often do you attend latter-day or congregation services: never Do you belong to any clubs or organizations such as latter-day groups unions, fraternal or athletic groups, or school groups: no Total score: 1 Score interpretation: A score of less than or equal to 1 indicates the most socially isolated. Little interest or pleasure in doing things: not at all Feeling down, depressed, or hopeless: not at all Feel stressed/tense/nervous/anxious/difficulty sleeping: not at all Do you think of yourself as: straight/heterosexual Gender Identity: female Exam Narrative Exam Narrative: Nurses note and vital signs reviewed and patient is not hypoxic. General: The patient appears in no apparent distress. Skin: Warm, dry, no pallor noted. There is no rash noted. Head: Normocephalic, atraumatic Eye: Normal conjunctiva, no drainage Ears, Nose, Mouth, and Throat: oral mucosa is moist. Nares patent. Cardiovascular: Regular Rate and Rhythm Respiratory: Patient is in no distress, no accessory muscle use, lungs are clear to auscultation, no wheezing, rales or rhonchi Back: non-tender GI: Soft and nontender Musculoskeletal: The patient has no evidence of calf tenderness, no pitting edema, symmetrical pulses noted bilaterally Neurological: A&O, normal speech Psychiatric: Cooperative Constitutional Vital Signs, click to edit/add: Last Vital Signs Temp 98.3 F 07/31/24 16:31 Pulse 89 07/31/24 17:35 Resp 18 07/31/24 17:35 BP 128/89 07/31/24 17:35 Pulse Ox 97 07/31/24 17:35 O2 Del Method Room Air 07/31/24 17:35 Course Vital Signs Vital signs: Vital Signs Temperature 98.3 F 07/31/24 16:31 Pulse Rate 83 07/31/24 16:31 Respiratory Rate 18 07/31/24 16:31 Blood Pressure 171/74 H 07/31/24 16:31 Pulse Oximetry 98 07/31/24 16:31 Oxygen Delivery Method Room Air 07/31/24 16:31 Temperature 98.3 F 07/31/24 16:31 Pulse Rate 89 07/31/24 17:35 Respiratory Rate 18 07/31/24 17:35 Blood Pressure 128/89 07/31/24 17:35 Pulse Oximetry 97 07/31/24 17:35 Oxygen Delivery Method Room Air 07/31/24 17:35 MDM - Chest Pain MDM Narrative Medical decision making narrative: 2 sets of troponin are negative and EKG shows no acute findings. Case discussed with Dr. Licea who recommends the patient be kept here for observation overnight. Nitroglycerin did not change her pain and she was also ordered some IV morphine. Treatment diagnosis and disposition were discussed with the patient and her family. I have no clinical suspicion of pulmonary embolism. Differential Diagnosis Differential diagnosis: Likely pneumothorax, unstable angina pectoris, atypical chest pain, st elevation myocardial infarction and chest pain Lab Data Attestation: I reviewed the patient's lab results. Labs: Lab Results 07/31/24 07/31/24 Range/Units 17:03 17:57 WBC 8.3 (4.0-11.0) 10^3/uL RBC 4.41 (4.20-5.40) 10^6/uL Hgb 12.0 (12.0-16.0) g/dL Hct 36.4 (36.0-48.0) % MCV 82.5 (81.0-99.0) fL MCH 27.2 (26.7-34.0) pg MCHC 33.0 (29.9-35.2) g/dL RDW 14.5 (11.0-15.0) % Plt Count 246 (150-450) 10^3/uL MPV 10.3 (9.5-13.5) fL Neut % (Auto) 69.8 (43.0-75.0) % Lymph % (Auto) 21.3 (20.5-60.0) % [place] % (Auto) 6.7 (1.7-12.0) % Eos % (Auto) 1.5 (0.9-7.0) % Baso % (Auto) 0.5 (0.2-2.0) % Neut # (Auto) 5.8 (1.4-6.5) 10^3/uL Lymph # (Auto) 1.8 (1.2-3.8) 10^3/uL [place] # (Auto) 0.6 (0.3-0.8) 10^3/uL Eos # (Auto) 0.1 (0.0-0.7) 10^3/uL Baso # (Auto) 0.0 (0.0-0.1) 10^3/uL Abs Immat Gran (auto) 0.02 (0.00-0.03) 10^3/uL Imm/Tot Granulo (auto) 0.2 (0.0-0.5) % Sodium 139 (136-145) mmol/L Potassium 3.5 (3.5-5.1) mmol/L Chloride 103 (98-107) mmol/L Carbon Dioxide 24.9 (21.0-32.0) mmol/L Anion Gap 14.6 BUN 22.0 H (7.0-18.0) mg/dL Creatinine 1.59 H (0.55-1.02) mg/dL Est GFR ( Amer) 40 L (>=60) Est GFR (Non-Af Amer) 33 L (>=60) BUN/Creatinine Ratio 13.8 Glucose 195 H (74-106) mg/dL Calcium 8.8 (8.5-10.1) mg/dL Troponin I High Sens 11.1 10.6 (4.0-51.3) pg/mL ECG Data Attestation: I personally reviewed and interpreted this ECG as follows: (EKG on my interpretation shows normal sinus rhythm with a rate of [address] segment elevation) Heart Score History: Highly Suspicious ECG: NS Repolarization Age: >45-<65 years Risk Factors: >3 Risk Factors/ HX of CAD:2 Troponin: <Normal Limit Total Heart Score Recommendations & Risks:: 6 Discharge Plan Discharge Chief Complaint: Chest Pain Clinical Impression: Chest pain Patient Disposition: Admitted as Observation Time of Disposition Decision: 18:30 Condition: Good
[2024-07-31 17:08] LABS: Basophils Percent Auto 0.5 % (0.2-2.0); Eosinophils Absolute Auto 0.1 10^3/uL (0.0-0.7); Eosinophils Percent Auto 1.5 % (0.9-7.0); Hematocrit 36.4 % (36.0-48.0); Immature Granulocytes Abs Auto 0.02 10^3/uL (0.00-0.03); Immature Granulocytes Pct Auto 0.2 % (0.0-0.5); Lymphocytes Absolute Auto 1.8 10^3/uL (1.2-3.8); Lymphocytes Percent Auto 21.3 % (20.5-60.0); Mean Corpuscular Hemoglobin 27.2 pg (26.7-34.0); Mean Corpuscular Volume 82.5 fL (81.0-99.0); Mean Platelet Volume 10.3 fL (9.5-13.5); Monocytes Absolute Auto 0.6 10^3/uL (0.3-0.8); Monocytes Percent Auto 6.7 % (1.7-12.0); Neutrophils Absolute Auto 5.8 10^3/uL (1.4-6.5); Neutrophils Percent Auto 69.8 % (43.0-75.0); Platelet Count 246 10^3/uL (150-450); Red Blood Count 4.41 10^6/uL (4.20-5.40); Red Cell Distribution Width 14.5 % (11.0-15.0); White Blood Count 8.3 10^3/uL (4.0-11.0)
[2024-07-31] MEDS: NITROGLYCERIN 0.4 MG BOTTLE SL ×2 (17:08→17:29)
[2024-07-31 17:39] LABS: Anion Gap 14.6; BUN Creatinine Ratio 13.8; Calcium 8.8 mg/dL (8.5-10.1); Carbon Dioxide 24.9 mmol/L (21.0-32.0); Chloride 103 mmol/L (98-107); Estimated GFR (African America 40 (>=60); Estimated GFR (Non-African Ame 33 (>=60); Glucose 195 mg/dL (74-106); Potassium 3.5 mmol/L (3.5-5.1); Sodium 139 mmol/L (136-145); Troponin I High Sensitivity 11.1 pg/mL (4.0-51.3)
--- NOTE | 2024-07-31 17:40 | XR_ITS ---
The [address] [address] Patient Name: MILAN RASMUSSEN MRN: [id number] date: 1965 Sex: F Assigned Patient Location: ED.MAIN Current Patient Location: [place] Accession/Order Number: [id number] Exam Date: 07/31/2024 17:35 Report Date: 07/31/2024 21:41 At the request of: JOSE BETANCUR Procedure: XR chest 1V EXAMINATION: XR chest 1V, , 07/31/2024 5:35 PM EDT INDICATION: Chest Pain HISTORY: Ordering Provider Reason for Exam: Chest Pain Technologist Note: Additional: COMPARISON: XR chest 1V Study Date: 07/20/2024 TECHNIQUE: Chest x-ray: One view. FINDINGS: No pneumothorax, pleural effusion or focal airspace consolidation. Heart is normal in size. Bony thorax is unremarkable. XR/XR chest 1V IMPRESSION: No acute cardiopulmonary process. Electronically authenticated by: SHANNON MURPHY Date: 07/31/2024 21:41
[2024-07-31 18:18] LABS: Troponin I High Sensitivity 10.6 pg/mL (4.0-51.3)
[2024-07-31] MEDS: MORPHINE SULFATE 4 MG/ML VIAL IV (18:35)
--- OUTSIDE RECORDS SUMMARY | 2024-07-31 19:51 | XMS_ITS | CCD ---
Author Organization [facility] [employer] Care Team Providers Care Autos Disassembler Name Role Phone Kendra Murillo Primary Care [...] Medication Allergies] Propensity to adverse reactions (disorder) [facility] Repository (1 source) ALPRAZolam; 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: [ALPRAZOLAM] Drug Allergy [address] [place] [address] Repository (1 source) amLODIPine; 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: [AMLODIPINE] Drug Allergy 4 [facility] Repository (1 source) Lisinopril; 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: [LISINOPRIL] Drug Allergy [address] [place] [address] Repository Medications Current Medications Medication Drug Class(es) [...] Coronary arteriosclerosis; 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: [Atherosclerotic heart disease of red devil coronary artery without angina pectoris] Onset: 3 [...] 11-26-2022 12-20-2019 Episodic Other aftercare (1 source) 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; 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: [INTERMEDIATE CURRENT USE OF ASPIRIN] Onset: 11-26-2022 Episodic Other aftercare (1 source) Other filler leaf cutter long (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 therapy; 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: [OTH INTERMEDIATE CURRENT DRUG THERAPY] Onset: 11-26-2022 Episodic Other [...] Interpretation Reference Range Facility Telemedicine 07-20-2024 Telemedicine [id number] Aby Madrigal 1965 F Date Provider Department Center 07/20/2024 RICHA MERINO ONC DCC Family History Problem Relation Age of Onset Lung cancer Mother No Known Problems Father Lung cancer Sister Family Status - Relation Status Age at Mother Father Sister Level of Service:88802 [place] PHYS/QHP TELEPHONE EVALUATION 21-30 MIN () Reason for Visit and Comments: New Patient [632] - 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 CT CHEST 04-21-24- PET 06-21-24 Films requested 07-18-24 HAVING HARD TIME GETTING FILMS FROM [facility] AGAIN. Ginny at [place] ([phone] direct line) is working on sending them. CHECK [facility] FOR FILMS PLEASE Normal [facility] 37on 07-18-2024 37 It was great [...] lab work done at one of these [facility] Sites The results will then come straight to me I appreciate it [facility] [address], [place] Hours Wednesday - Wednesday 8 AM - 4PM (Closed 12 - 12:30 PM daily) Phone: [facility] [address] Hours: Wednesday - Wednesday 6 AM - 5 PM Saturday: 7 AM - 2 PM Phone: [address] [place] Hours: Wednesday - Wednesday 7 AM - 3:30 PM Phone: [facility] [address] [place] [address] Hours: Wednesday 7 AM - 5:30 PM Phone: [facility] [address], [place] Hours: Wednesday 8 AM - 4:30 PM Phone: [facility] EDNURSon 07-18-2024 EDNURS ADR and relevant inf o reported to [facility] in pharmacy d/t safety net being down. Viet Kelly RN 07/18/24 1139 [facility] EDNURS SENT FROM MD OFFICE RE: LOW BP; RECENT DC FROM [facility] FOR SAME [facility] EDPROVon 07-18-2024 EDPROV HPI Chief Complaint [...] new meds yesterday. History provided by: Patient orthopedic brace maker used: No Cohagen Coma Scale Score: 15 Patient History Past [...] by mouth i (more content not included)... [facility] Office Visiton 07-18-2024 Follow-up visit [id number] Aby Madrigal 1965 F Date Provider Department Center 07/18/2024 [id number], WADE [facility] ENDOCR [facility] Family History Problem Relation Age of Onset Lung cancer Mother No Known Problems Father Lung cancer Sister Family Status - Relation Status Age at Mother Father Sister Level of Service:09494 [place] OFFICE/OUTPATIENT NEW MODERATE MDM 45 MINUTES Reason for Visit and Comments: Nodules [Other] [facility] Follow-up visit [id number] Aby Madrigal 1965 F Date Provider Department [place] 07/18/2024 [id number] WANG [facility] ENDOCR [facility] Family History Problem Relation Age of Onset Lung cancer Mother No Known Problems Father Lung cancer Sister Family Status - Relation Status Age at Mother Father Sister Level of Service:NOCHG [place]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 I am calling you to follow up [...] No Patient Name Aby Madrigal Date 07/13/24 [facility] Telephoneon 07-13-2024 Telephone [id number] Aby Madrigal 1965 F Date Provider Department [place] 07/13/2024 GINNY MALONEY [facility] C Family History Problem Relation Age of Onset Lung cancer Mother No Known Problems Father Lung cancer Sister Family Status - Relation Status Age at Mother Father Sister Reason for Visit and Comments: Hospital Follow-up [832] Normal [facility] 30on 07-12-2024 30 The patient is [...] to address these barriers include . Normal [facility] ANTI-XA (HEPARIN LEVEL)on HEPARIN UNFRACTIONATED (U/ML) IN PPP BY CHROMOGENIC METHOD 0.60 IU/mL Normal 0.3-0.7 [facility] Comment on above: Order Comment: Basel ine aPTT before initiating heparin infusion. Result Comment: [place] roxaban and Apixaban will interfere with the anti Xa assay used to monitor UFH and LMWH. Performed By: #### L [id number] #### [facility] ([facility]) [address] [place] [place] [address] BASIC METABOLIC PANELon 06-23 Anion gap [Moles/Vol] 10 mmol/L Normal 7-20 [facility] Comment on above: Performed By: #### L [id number] #### [facility] ([facility]) [address] [place] [place] [address] Calcium [Mass/Vol] 8.8 mg/dL Normal 8.6-10.3 [facility] Comment on above: Performed By: #### L [id number] #### [facility] ([facility]) [address] [facility] [place] [address] Chloride [Moles/Vol] 108 mmol/L High 98-107 [facility] Comment on above: Performed By: #### L [id number] #### [facility] ([facility]) [address] [place] [address] CO2 [Moles/Vol] 27 mmol/L Normal 21-31 [facility] Comment on above: Performed By: #### L [id number] #### [facility] ([facility]) [address] [place] [address] Creatinine [Mass/Vol] 0.89 mg/dL Normal 0.60-1.20 [facility] Comment on above: Performed By: #### L [id number] #### [facility] ([facility]) [address] [place] [address] GLOMERULAR FILTRATION RATE ML/MIN/1.73 SQ M.PREDICTED 74.2 mL/min/1.73m*2 Normal >60.0 [facility] Comment on above: Result Comment: The [facility]???s estimated glomerular filtration rate (eGFR) will [...] #### [facility] ([facility]) [address] [place] [address] Glucose [Mass/Vol] 109 mg/dL High 70-100 [facility] Comment on above: Performed By: #### L [id number] #### [facility] ([facility]) [address] [place] [address] Potassium [Moles/Vol] 3.4 mmol/L Low 3.5-5.1 [facility] Comment on above: Performed By: #### L [id number] #### [facility] ([facility]) [address] [place] [address] Sodium [Moles/Vol] 142 mmol/L Normal 136-145 [facility] Comment on above: Performed By: #### L [id number] #### [facility] ([facility]) [address] [place] [address] Urea nitrogen [Mass/Vol] 11 mg/dL Normal 7-25 [facility] Comment on above: Performed By: #### L [id number] #### [facility] ([facility]) [address] [place] [address] UREA NITROGEN/CREATININE (MASS RATIO) IN SER/PLAS 12.4 Normal [facility] Comment on above: Performed By: #### L [id number] #### [facility] ([facility]) [address] [place] [address] CBC WITH AUTO DIFFERENTIALon 07-12-2024 Basophils (Bld) [#/Vol] 0.04 10*3/uL Normal 0.00-0.20 [facility] Comment on above: Performed By: #### L [id number] #### [facility] ([facility]) [address] [place] [address] Basophils/100 WBC (Bld) 0.6 % Normal 0.0-1.0 [facility] Comment on above: Performed By: #### L [id number] #### [facility] ([facility]) [address] [place] [address] Eosinophils (Bld) [#/Vol] 0.22 10*3/uL Normal 0.00-0.50 [facility] Comment on above: Performed By: #### L [id number] #### [facility] ([facility]) [address] [place] [address] Eosinophils/100 WBC (Bld) 3.5 % Normal 0.0-6.0 [facility] Comment on above: Performed By: #### L [id number] #### [facility] ([facility]) [address] [place] [address] Erythrocyte distribution width (RBC) [Ratio] 14.5 % Normal 11.5-15.0 [facility] Comment on above: Performed By: #### L [id number] #### [facility] ([facility]) [address] [place] [address] ERYTHROCYTE MEAN CORPUSCULAR HEMOGLOBIN CONCENTRATION (G/DL) BY AUTOMATED 32.7 g/dL Normal 32.0-35.0 [facility] Comment on above: Performed By: #### L [id number] #### [facility] ([facility]) [address] [place] [address] Hematocrit (Bld) [Volume fraction] 34.2 % Low 36.0-48.0 [facility] Comment on above: Performed By: #### L [id number] #### [facility] ([facility]) [address] [place] [address] Hemoglobin (Bld) [Mass/Vol] 11.2 g/dL Low 12.0-15.0 [facility] Comment on above: Performed By: #### L [id number] #### [facility] ([facility]) [address] [place] [address] Immature granulocytes (Bld) [#/Vol] 0.01 10*3/uL Normal 0.00-0.20 [facility] Comment on above: Performed By: #### L [id number] #### [facility] ([facility]) [address] [place] [address] Immature granulocytes/100 WBC (Bld) 0.2 % Normal 0.0-1.0 [facility] Comment on above: Performed By: #### L [id number] #### [facility] ([facility]) [address] [place] [address] Lymphocytes (Bld) [#/Vol] 2.37 10*3/uL Normal 1.20-4.00 [facility] Comment on above: Performed By: #### L [id number] #### [facility] ([facility]) [address] [place] [address] Lymphocytes/100 WBC (Bld) 37.8 % Normal 20.0-45.0 [facility] Comment on above: Performed By: #### L [id number] #### [facility] ([facility]) [address] [place] [address] MCH (RBC) [Entitic mass] 27.4 pg Normal 27.0-33.0 [facility] Comment on above: Performed By: #### L [id number] #### [facility] ([facility]) [address] [place] [address] MCV (RBC) [Entitic vol] 83.6 fL Normal 82.0-98.0 [facility] Comment on above: Performed By: #### L [id number] #### [facility] ([facility]) [address] [place] [address] Monocytes (Bld) [#/Vol] 0.43 10*3/uL Normal 0.10-1.00 [facility] Comment on above: Performed By: #### L [id number] #### [facility] ([facility]) [address] [place] [address] Monocytes/100 WBC (Bld) 6.9 % Normal 5.0-12.0 [facility] Comment on above: Performed By: #### L [id number] #### [facility] ([facility]) [address] [place] [address] Neutrophils (Bld) [#/Vol] 3.20 10*3/uL Normal 1.60-7.60 [facility] Comment on above: Performed By: #### L [id number] #### [facility] ([facility]) [address] [place] [address] Neutrophils/100 WBC (Bld) 51.0 % Normal 40.0-72.0 [facility] Comment on above: Performed By: #### L [id number] #### [facility] ([facility]) [address] [place] [address] NRBC (PER 100 WBCS) BY AUTOMATED COUNT 0.0 % Normal 0 [facility] Comment on above: Performed By: #### L [id number] #### [facility] ([facility]) [address] [place] [address] PLATELETS (10*3/UL) IN BLOOD AUTOMATED COUNT 223 10*3/uL Normal 150-400 [facility] Comment on above: Performed By: #### L [id number] #### [facility] ([facility]) [address] [place] [address] RBC (Bld) [#/Vol] 4.09 10*6/uL Normal 3.80-5.00 [facility] Comment on above: Performed By: #### L [id number] #### [facility] ([facility]) [address] [place] [address] WBC (Bld) [#/Vol] 6.27 10*3/uL Normal 4.00-10.60 [facility] Comment on above: Performed By: #### L [id number] #### [facility] ([facility]) [address] [place] [address] MAGNESIUMon 07-12-2024 Magnesium [Mass/Vol] 1.7 mg/dL Low 1.9-2.7 [facility] Comment on above: Performed By: #### L [id number] #### [facility] ([facility]) [address] [facility] [place] [address] POCT GLUCOSE METER UNSOLICIT ED RESULTSon 07-12-2024 Glucose [Mass/Vol] 102 mg/dL Normal 70-105 [facility] Comment on above: Order Comment: Waive d Testing in the ED is performed under the ED CLIA certificate #[id number]. Result Comment: [email or web address] Performed By: #### L [id number] #### [facility] ([facility]) [address] [place] [address] TROPONIN Ion 07-12-2024 Troponin I.cardiac [Mass/Vol] 0.01 ng/mL Normal 0.00-0.04 [facility] Comment on above: Performed By: #### L [id number] #### [facility] ([facility]) [address] [place] [address] 30on 07-11-2024 30 The patient is Moderately [...] and maintained or improved Outcome: Progressing Normal [facility] 30 The patient is Moderately Stable - Low risk of patient condition declining or worsening The patient's goals for the shift include no chest pain The clinical goals for the shift include stable vital/no chest pain Over the shift, the patient did not make progress toward the following goals. Barriers to progression include . Recommendations to address these barriers include . Normal [facility] ALDOSTERONEon 07-11-2024 ALDOSTERONE (NG/DL) IN SER/PLAS 4.9 ng/dL Normal [facility] Comment on above: Result Comment: INTE [...] reference intervals for this test in the [facility] Test Directory ([facility] [employer] [facility])). Performed By: [facility] [address] [place] [address] Grill Cook: Navneet Simeon MD, PhD CLIA Number: [id number] Performed By: #### L [id number] #### [facility] ([facility]) [address] [place] [address] ANTI-XA (HEPARIN LEVEL)on HEPARIN UNFRACTIONATED (U/ML) IN PPP BY CHROMOGENIC METHOD 0.42 IU/mL Normal 0.3-0.7 [facility] Comment on above: Order Comment: Check anti-Xa level every 6 hours while on heparin infusion, or per protocol. Result Comment: [place] roxaban and Apixaban will interfere with the anti Xa assay used to monitor UFH and LMWH. Performed By: #### L [id number] #### [facility] ([facility]) [address] [place] [address] HEPARIN UNFRACTIONATED (U/ML) IN PPP BY CHROMOGENIC METHOD 0.20 IU/mL Low 0.3-0.7 [facility] Comment on above: Order Comment: Basel ine aPTT before initiating heparin infusion. Result Comment: [place] roxaban and Apixaban will interfere with the anti Xa assay used to monitor UFH and LMWH. Performed By: #### L [id number] #### [facility] ([facility]) [address] [place] [address] APTTon 07-11-2023 ACTIVATED PARTIAL THROMBOPLASTIN TIME IN PPP BY COAGULATION ASSAY 43.0 Seconds High 25.0-35.0 [facility] Comment on above: Result Comment: Clin ical significance of the APTT is questionable in the presence of heparin. Performed By: #### L [id number] #### [facility] ([facility]) [address] [place] [address] BASIC METABOLIC PANELon 06-23 Anion gap [Moles/Vol] 9 mmol/L Normal 7-20 [facility] Comment on above: Performed By: #### L [id number] #### [facility] ([facility]) [address] [place] [address] Calcium [Mass/Vol] 8.8 mg/dL Normal 8.6-10.3 [facility] Comment on above: Performed By: #### L [id number] #### [facility] ([facility]) [address] [place] [address] Chloride [Moles/Vol] 108 mmol/L High 98-107 [facility] Comment on above: Performed By: #### L [id number] #### [facility] ([facility]) [address] [place] [address] CO2 [Moles/Vol] 28 mmol/L Normal 21-31 [facility] Comment on above: Performed By: #### L [id number] #### [facility] ([facility]) [address] [place] [address] Creatinine [Mass/Vol] 1.09 mg/dL Normal 0.60-1.20 [facility] Comment on above: Performed By: #### L [id number] #### [facility] ([facility]) [address] [place] [address] GLOMERULAR FILTRATION RATE ML/MIN/1.73 SQ M.PREDICTED 58.2 mL/min/1.73m*2 Low >60.0 [facility] Comment on above: Result Comment: The [facility]???s estimated glomerular filtration rate (eGFR) will [...] #### [facility] ([facility]) [address] [place] [address] Glucose [Mass/Vol] 113 mg/dL High 70-100 [facility] Comment on above: Performed By: #### L [id number] #### [facility] ([facility]) [address] [place] [address] Potassium [Moles/Vol] 3.4 mmol/L Low 3.5-5.1 [facility] Comment on above: Performed By: #### L [id number] #### [facility] ([facility]) [address] [place] [address] Sodium [Moles/Vol] 142 mmol/L Normal 136-145 [facility] Comment on above: Performed By: #### L [id number] #### [facility] ([facility]) [address] [place] [address] Urea nitrogen [Mass/Vol] 14 mg/dL Normal 7-25 [facility] Comment on above: Performed By: #### L [id number] #### [facility] ([facility]) [address] [place] [address] UREA NITROGEN/CREATININE (MASS RATIO) IN SER/PLAS 12.8 Normal [facility] Comment on above: Performed By: #### L [id number] #### [facility] ([facility]) [address] [place] [address] CBC WITH AUTO DIFFERENTIALon 07-11-2024 Basophils (Bld) [#/Vol] 0.04 10*3/uL Normal 0.00-0.20 [facility] Comment on above: Performed By: #### L [id number] #### [facility] ([facility]) [address] [facility] [place] [address] Basophils/100 WBC (Bld) 0.6 % Normal 0.0-1.0 [facility] Comment on above: Performed By: #### L [id number] #### [facility] ([facility]) [address] [place] [address] Eosinophils (Bld) [#/Vol] 0.16 10*3/uL Normal 0.00-0.50 [facility] Comment on above: Performed By: #### L [id number] #### [facility] ([facility]) [address] [place] [address] Eosinophils/100 WBC (Bld) 2.2 % Normal 0.0-6.0 [facility] Comment on above: Performed By: #### L [id number] #### [facility] ([facility]) [address] [place] [address] Erythrocyte distribution width (RBC) [Ratio] 14.6 % Normal 11.5-15.0 [facility] Comment on above: Performed By: #### L [id number] #### [facility] ([facility]) [address] [place] [address] ERYTHROCYTE MEAN CORPUSCULAR HEMOGLOBIN CONCENTRATION (G/DL) BY AUTOMATED 32.0 g/dL Normal 32.0-35.0 [facility] Comment on above: Performed By: #### L [id number] #### [facility] ([facility]) [address] [place] [address] Hematocrit (Bld) [Volume fraction] 36.2 % Normal 36.0-48.0 [facility] Comment on above: Performed By: #### L [id number] #### [facility] ([facility]) [address] [place] [address] Hemoglobin (Bld) [Mass/Vol] 11.6 g/dL Low 12.0-15.0 [facility] Comment on above: Performed By: #### L [id number] #### [facility] ([facility]) [address] [facility] [place] [address] Immature granulocytes (Bld) [#/Vol] 0.02 10*3/uL Normal 0.00-0.20 [facility] Comment on above: Performed By: #### L [id number] #### [facility] ([facility]) [address] [place] [address] Immature granulocytes/100 WBC (Bld) 0.3 % Normal 0.0-1.0 [facility] Comment on above: Performed By: #### L [id number] #### [facility] ([facility]) [address] [place] [address] Lymphocytes (Bld) [#/Vol] 2.34 10*3/uL Normal 1.20-4.00 [facility] Comment on above: Performed By: #### L [id number] #### [facility] ([facility]) [address] [place] [address] Lymphocytes/100 WBC (Bld) 32.6 % Normal 20.0-45.0 [facility] Comment on above: Performed By: #### L [id number] #### [facility] ([facility]) [address] [place] [address] MCH (RBC) [Entitic mass] 27.2 pg Normal 27.0-33.0 [facility] Comment on above: Performed By: #### L [id number] #### [facility] ([facility]) [address] [facility] [place] [address] MCV (RBC) [Entitic vol] 85.0 fL Normal 82.0-98.0 [facility] Comment on above: Performed By: #### L [id number] #### [facility] ([facility]) [address] [place] [address] Monocytes (Bld) [#/Vol] 0.49 10*3/uL Normal 0.10-1.00 [facility] Comment on above: Performed By: #### L [id number] #### [facility] ([facility]) [address] [place] [address] Monocytes/100 WBC (Bld) 6.8 % Normal 5.0-12.0 [facility] Comment on above: Performed By: #### L [id number] #### [facility] [facility] ([facility]) [address] [place] [address] Neutrophils (Bld) [#/Vol] 4.13 10*3/uL Normal 1.60-7.60 [facility] Comment on above: Performed By: #### L [id number] #### [facility] ([facility]) [address] [place] [address] Neutrophils/100 WBC (Bld) 57.5 % Normal 40.0-72.0 [facility] Comment on above: Performed By: #### L [id number] #### [facility] ([facility]) [address] [place] [address] NRBC (PER 100 WBCS) BY AUTOMATED COUNT 0.0 % Normal 0 [facility] Comment on above: Performed By: #### L [id number] #### [facility] ([facility]) [address] [place] [address] PLATELETS (10*3/UL) IN BLOOD AUTOMATED COUNT 245 10*3/uL Normal 150-400 [facility] Comment on above: Performed By: #### L [id number] #### [facility] ([facility]) [address] [place] [address] RBC (Bld) [#/Vol] 4.26 10*6/uL Normal 3.80-5.00 [facility] Comment on above: Performed By: #### L [id number] #### [facility] ([facility]) [address] [place] [address] WBC (Bld) [#/Vol] 7.18 10*3/uL Normal 4.00-10.60 [facility] Comment on above: Performed By: #### L [id number] #### [facility] ([facility]) [address] [place] [address] CONSULTon 07-11-2024 CONSULT -- Attestation signed by [...] Brown is the endocrine surgeon in the [place] area that would be most appropriate and [...] with plan for outpatient follow up with [place] [facility] surgery and endocrinology Meseret Mac MD Cardiology Consult Note Reason for Consult: Chest pain HPI: Aby Madrigal is a 59 y.o. female patient is presenting as a transfer from [facility] for the evaluation of chest pain. Past [...] medical history of Abnormal ECG, Diabetes mellitus ([facility]), Hyperlipidemia, Hypertension, Obstructive sleep apnea, Panic attacks, and Stroke ([facility]). Surgical History She has a [...] Value Ventricular Rate 56 Atrial Rate 56 GA Interval 180 QRS DURATION 94 QT Interval 430 QTC (more content not included)... Normal [facility] EDPROVon 07-11-2024 EDPROV HPI Chief Complaint [...] Pt states she was trasnfered here from [place] to be transferred to cardiology. Pt states she had a cardiac stent placed last week. She denies fever, coughing, vomiting, abdominal pain. She admits diarrhea. She felt better when given ativan and worse when she was given morphine. She has had her gallbladder removed. History provided by: Patient orthopedic brace maker used: No Chest Pain Associated symptoms: no abdominal pain, no cough, no fever and no vomiting Cohagen Coma Scale Score: 15 Patient History Past [...] signing this emergency patient record, the Emergency Physician/STREET FLUSHER DRIVER/PA-C attests that all entries made into the electronic medical record by the scribe prior to the Physician/STREET FLUSHER DRIVER/PA-C signature reflect an accurate accounting of the evaluation and care rendered by that Emergency Physician/STREET FLUSHER DRIVER/PA-C. The Emergency Physician/STREET FLUSHER DRIVER/PA-C assumes full responsibility for those entries. The Emergency Physician/STREET FLUSHER DRIVER/PA-C also attests that any patient testing or treatment that was instituted by nursing staff. [facility] EDPROV HPI Chief Complaint Patient [...] Pt states she was trasnfered here from [place] to be transferred to cardiology. Pt states she had a cardiac stent placed last week. She denies fever, coughing, vomiting, abdominal pain. She admits diarrhea. She felt better when given ativan and worse when she was given morphine. She has had her gallbladder removed. History provided by: Patient orthopedic brace maker used: No Chest Pain Associated symptoms: no abdominal pain, no cough, no fever and no vomiting Cohagen Coma Scale Score: 15 Patient History Past [...] 07/11/24 1256 NSTEMI (non-ST elevated myocardial infarction) ([facility]) Medical Decision Making Amount and/or Complexity of Data Reviewed Labs: ordered. Decision-making details documented in ED Course. ECG/medicine tests: ordered and independent interpretation performed. Decision-making details documented in ED Course. Risk Drug therapy requiring intensive monitoring for toxicity. Decision regarding hospitalization. Minor surgery with identified risk factors. I, Basilia diallo (more content not included)... Invalid Interpretation Code [facility] POCT GLUCOSE METER UNSOLICIT ED RESULTSon 07-11-2024 Glucose [Mass/Vol] 122 mg/dL High 70-105 [facility] Comment on above: Order Comment: Waive d Testing in the ED is performed under the ED CLIA certificate #[id number]. Result Comment: [email or web address] Performed By: #### L [id number] #### [facility] ([facility]) [address] [place] [address] PROTIME-INRon 07-11-2024 INR IN PPP BY COAGULATION ASSAY 1.00 Normal 0.90-1.10 [facility] Comment on above: Result Comment: ACCC [...] 1995;[id number]. Performed By: #### L [id number] #### [facility] ([email or web address]) [address] [place] [address] PROTHROMBIN TIME (PT) IN PPP BY COAGULATION ASSAY 13.2 Seconds Normal 12.3-14.8 [facility] Comment on above: Performed By: #### L [id number] #### [facility] ([email or web address]) [address] [place] [address] RENIN ACTIVITYon 07-11-2024 RENIN ACTIVITY <0.1 Normal [facility] Comment on above: Result Comment: INTE RPRETIVE INFORMATION: Renin Activity Adult, Normal sodium diet: Supine ................. 0.2-1.6 ng/mL/hr Upright ................ 0.5-4.0 ng/mL/hr Children, Normal sodium diet, Supine: [place] (1-7 days) ..... 2.0-35.0 ng/mL/hr Cord blood [...] developed and its performance characteristics determined by [facility]. It has not been cleared or approved by the US Food and Drug Administration. This test was performed in a CLIA certified laboratory and is intended for clinical purposes. Performed By: [facility] [address] [place] [address] Grill Cook: Navneet Simeon MD, PhD CLIA Number: [id number] Performed By: #### L [id number] #### [facility] ([facility]) [address] [place] [address] TROPONIN Ion 07-11-2024 Troponin I.cardiac [Mass/Vol] 0.01 ng/mL Normal 0.00-0.04 [facility] Comment on above: Performed By: #### L [id number] #### [facility] ([facility]) [address] [place] [address] Office Visiton 07-10-2024 Follow-up visit [id number] Aby Madrigal 1965 F Date Provider Department Center 07/10/2024 [id number] Family History Problem Relation Age of Onset Lung cancer Mother No Known Problems Father Lung cancer Sister Family Status - Relation Status Age at Mother Father Sister Level of Service:13994 [place] OFFICE/OUTPATIENT ESTABLISHED MOD MDM 30 MIN Reason for Visit and Comments: Coronary Artery Disease [187] Post-Cath [731] Normal [facility] 36on 07-03-2024 36 Post Discharge Call Good morning, I am Ginny Kirkland, RN a lead nurse from [facility]. I am calling you to follow up [...] Patient Name Aby Madrigal Date 07/03/24 Normal [facility] Telephoneon 07-03-2024 Telephone [id number] Aby Madrigal 1965 F Date Provider Department Center 07/03/2024 Adela-GINNY KIRKLAND [facility] Family History Problem Relation Age of Onset Lung cancer Mother No Known Problems Father Lung cancer Sister Family Status - Relation Status Age at Mother Father Sister Reason for Visit and Comments: Hospital Follow-up [832] Normal [facility] 30on 07-01-2024 30 The patient is [...] and maintained or improved Outcome: Progressing Normal [facility] BASIC METABOLIC PANELon 08- Anion gap [Moles/Vol] 14 mmol/L Normal - [facility] Comment on above: Performed By: #### L [id number] #### [facility] ([facility]) [address] [place] [address] Calcium [Mass/Vol] 8.2 mg/dL Low 8.6-10.3 [facility] Comment on above: Performed By: #### L [id number] #### [facility] ([facility]) [address] [place] [address] Chloride [Moles/Vol] 106 mmol/L Normal 98-107 [facility] Comment on above: Performed By: #### L [id number] #### [facility] ([facility]) [address] [place] [address] CO2 [Moles/Vol] 25 mmol/L Normal 21-31 [facility] Comment on above: Performed By: #### L [id number] #### [facility] ([facility]) [address] [place] [address] Creatinine [Mass/Vol] 0.91 mg/dL Normal 0.60-1.20 [facility] Comment on above: Performed By: #### L [id number] #### [facility] ([facility]) [address] [place] [address] GLOMERULAR FILTRATION RATE ML/MIN/1.73 SQ M.PREDICTED 72.2 mL/min/1.73m*2 Normal >60.0 [facility] Comment on above: Result Comment: The [facility]???s estimated glomerular filtration rate (eGFR) will [...] #### [facility] ([facility]) [address] [place] [address] Glucose [Mass/Vol] 101 mg/dL High 70-100 [facility] Comment on above: Performed By: #### L [id number] #### [facility] ([facility]) [address] [place] [address] Potassium [Moles/Vol] 3.5 mmol/L Normal 3.5-5.1 [facility] Comment on above: Performed By: #### L [id number] #### [facility] ([facility]) [address] [place] [address] Sodium [Moles/Vol] 141 mmol/L Normal 136-145 [facility] Comment on above: Performed By: #### L [id number] #### [facility] ([facility]) [address] [place] [address] Urea nitrogen [Mass/Vol] 13 mg/dL Normal 7-25 [facility] Comment on above: Performed By: #### L [id number] #### [facility] ([facility]) [address] [place] [address] UREA NITROGEN/CREATININE (MASS RATIO) IN SER/PLAS 14.3 Normal [facility] Comment on above: Performed By: #### L [id number] #### [facility] ([facility]) [address] [place] [address] CBCon 07-01-2024 Erythrocyte distribution width (RBC) [Ratio] 15.4 % High 11.5-15.0 [facility] Comment on above: Performed By: #### L [id number] #### [facility] ([facility]) [address] [place] [address] ERYTHROCYTE MEAN CORPUSCULAR HEMOGLOBIN CONCENTRATION (G/DL) BY AUTOMATED 32.1 g/dL Normal 32.0-35.0 [facility] Comment on above: Performed By: #### L [id number] #### [facility] ([facility]) [address] [place] [address] Hematocrit (Bld) [Volume fraction] 38.6 % Normal 36.0-48.0 [facility] Comment on above: Performed By: #### L [id number] #### [facility] ([facility]) [address] [place] [address] Hemoglobin (Bld) [Mass/Vol] 12.4 g/dL Normal 12.0-15.0 [facility] Comment on above: Performed By: #### L [id number] #### [facility] ([facility]) [address] [place] [address] MCH (RBC) [Entitic mass] 26.9 pg Low 27.0-33.0 [facility] Comment on above: Performed By: #### L [id number] #### [facility] ([facility]) [address] [place] [address] MCV (RBC) [Entitic vol] 83.7 fL Normal 82.0-98.0 [facility] Comment on above: Performed By: #### L [id number] #### [facility] ([facility]) [address] [place] [address] PLATELETS (10*3/UL) IN BLOOD AUTOMATED COUNT 238 10*3/uL Normal 150-400 [facility] Comment on above: Performed By: #### L [id number] #### [facility] ([facility]) [address] [place] [address] RBC (Bld) [#/Vol] 4.61 10*6/uL Normal 3.80-5.00 [facility] Comment on above: Performed By: #### L [id number] #### [facility] ([facility]) [address] [place] [address] WBC (Bld) [#/Vol] 7.04 10*3/uL Normal 4.00-10.60 [facility] Comment on above: Performed By: #### L [id number] #### [facility] ([facility]) [address] [place] [address] LIPID PANELon 07-01-2024 CHOL/HDL 3.8 mg/dL Normal [facility] Comment on above: Performed By: #### L [id number] #### [facility] ([facility]) [address] [place] [address] Cholesterol [Mass/Vol] 128 mg/dL Normal 120-200 [facility] Comment on above: Performed By: #### L [id number] #### [facility] ([facility]) [address] [place] [address] Magnesium [Mass/Vol] 87 mg/dL Normal 40-149 [facility] Comment on above: Result Comment: TRIG LYCERIDE REFERENCE RANGE: 20 YEARS AND OLDER CARDIOVASCULAR RISK LESS THAN 150 mg/dL LOW RISK 150 TO 199 mg/dL BORDERLINE RISK 200 mg/dL AND GREATER HIGH RISK Performed By: #### L [id number] #### [facility] ([facility]) [address] [place] [address] Magnesium [Mass/Vol] 77 mg/dL Normal 0-160 [facility] Comment on above: Performed By: #### L [id number] #### [facility] ([facility]) [address] [place] [address] Magnesium [Mass/Vol] 34 mg/dL Normal 23-92 [facility] Comment on above: Performed By: #### L [id number] #### [facility] ([facility]) [address] [place] [address] NON HDL CHOL. (LDL+VLDL) 94 Normal [facility] Comment on above: Performed By: #### L [id number] #### [facility] ([facility]) [address] [place] [address] TOTAL VLDL-C 17 mg/dL Normal 0-40 [facility] Comment on above: Performed By: #### L [id number] #### [facility] ([facility]) [address] [place] [address] MAGNESIUMon 07-01-2024 Magnesium [Mass/Vol] 2.0 mg/dL Normal 1.9-2.7 [facility] Comment on above: Performed By: #### L [id number] #### [facility] ([facility]) [address] [place] [address] NURSNOTEon 07-01-2024 NURSNOTE Discharge instructio ns given, reviewed, questions, answered, signed, copy received. Normal [facility] POCT GLUCOSE METER UNSOLICIT ED RESULTSon 07-01-2024 Glucose [Mass/Vol] 124 mg/dL High 70-105 [facility] Comment on above: Order Comment: Basel ine aPTT before initiating heparin infusion. Result Comment: [email or web address] Performed By: #### L [id number] #### [facility] ([facility]) [address] [place] [address] Glucose [Mass/Vol] 106 mg/dL High 70-105 [facility] Comment on above: Order Comment: Waive d Testing in the ED is performed under the ED CLIA certificate #[id number]. Result Comment: [email or web address] Performed By: #### L [id number] #### [facility] ([facility]) [address] [place] [address] TROPONIN Ion 07-01-2024 Troponin I.cardiac [Mass/Vol] 0.09 ng/mL High 0.00-0.04 [facility] Comment on above: Performed By: #### L [id number] #### [facility] ([facility]) [address] [place] [address] 30on 06-30-2024 30 The patient is Moderately Stable - Low risk of patient condition declining or worsening The patient's goals for the shift include comfort, rest The clinical goals for the shift include stable vitals, comfort Problem: Pain - Adult Goal: Verbalizes/displays adequate comfort level or baseline comfort level Outcome: Not Progressing Normal [facility] 30 Daily Case Managemen t Update [...] PT Recommendations: OT Recommendations: New Consults: Normal [facility] 30 The patient is Moderately Stable - Low risk of patient condition declining or worsening The patient's goals for the shift include COMFORT The clinical goals for the shift include VSS Over the shift, the patient did not make progress toward the following goals. Barriers to progression include . Recommendations to address these barriers include . Normal [facility] ANTI-XA (HEPARIN LEVEL)on HEPARIN UNFRACTIONATED (U/ML) IN PPP BY CHROMOGENIC METHOD 0.64 IU/mL Normal 0.3-0.7 [facility] Comment on above: Order Comment: Check anti-Xa level every 6 hours while on heparin infusion, or per protocol. Result Comment: [place] roxaban and Apixaban will interfere with the anti Xa assay used to monitor UFH and LMWH. Performed By: #### L [id number] #### [facility] ([facility]) [address] [place] [address] BASIC METABOLIC PANELon 08- Anion gap [Moles/Vol] 11 mmol/L Normal 7-20 [facility] Comment on above: Performed By: #### L [id number] #### [facility] ([email or web address]) [address] [place] [address] Calcium [Mass/Vol] 8.3 mg/dL Low 8.6-10.3 [facility] Comment on above: Performed By: #### L [id number] #### [facility] ([email or web address]) [address] [place] [address] Chloride [Moles/Vol] 110 mmol/L High 98-107 [facility] Comment on above: Performed By: #### L [id number] #### [facility] ([email or web address]) [address] [place] [address] CO2 [Moles/Vol] 26 mmol/L Normal 21-31 [facility] Comment on above: Performed By: #### L [id number] #### [facility] ([facility]) [address] [place] [address] Creatinine [Mass/Vol] 0.81 mg/dL Normal 0.60-1.20 [facility] Comment on above: Performed By: #### L [id number] #### [facility] ([facility]) [address] [place] [address] GLOMERULAR FILTRATION RATE ML/MIN/1.73 SQ M.PREDICTED 83.1 mL/min/1.73m*2 Normal >60.0 [facility] Comment on above: Result Comment: The [facility]???s estimated glomerular filtration rate (eGFR) will [...] By: #### L [id number] #### [facility] ([facility]) [address] [place] [address] Glucose [Mass/Vol] 110 mg/dL High 70-100 [facility] Comment on above: Performed By: #### L [id number] #### [facility] ([facility]) [address] [place] [address] Potassium [Moles/Vol] 3.7 mmol/L Normal 3.5-5.1 [facility] Comment on above: Performed By: #### L [id number] #### [facility] ([facility]) [address] [place] [address] Sodium [Moles/Vol] 143 mmol/L Normal 136-145 [facility] Comment on above: Performed By: #### L [id number] #### [facility] ([facility]) [address] [place] [address] Urea nitrogen [Mass/Vol] 10 mg/dL Normal 7-25 [facility] Comment on above: Performed By: #### L [id number] #### [facility] ([facility]) [address] [place] [address] UREA NITROGEN/CREATININE (MASS RATIO) IN SER/PLAS 12.3 Normal [facility] Comment on above: Performed By: #### L [id number] #### [facility] ([facility]) [address] [place] [address] CBCon 06-30-2024 Erythrocyte distribution width (RBC) [Ratio] 15.3 % High 11.5-15.0 [facility] Comment on above: Performed By: #### L [id number] #### [facility] ([facility]) [address] [place] [address] ERYTHROCYTE MEAN CORPUSCULAR HEMOGLOBIN CONCENTRATION (G/DL) BY AUTOMATED 31.3 g/dL Low 32.0-35.0 [facility] Comment on above: Performed By: #### L [id number] #### [facility] ([facility]) [address] [place] [address] Hematocrit (Bld) [Volume fraction] 36.7 % Normal 36.0-48.0 [facility] Comment on above: Performed By: #### L [id number] #### [facility] ([facility]) [address] [place] [address] Hemoglobin (Bld) [Mass/Vol] 11.5 g/dL Low 12.0-15.0 [facility] Comment on above: Performed By: #### L [id number] #### [facility] ([facility]) [address] [place] [address] MCH (RBC) [Entitic mass] 26.9 pg Low 27.0-33.0 [facility] Comment on above: Performed By: #### L [id number] #### [facility] ([facility]) [address] [place] [address] MCV (RBC) [Entitic vol] 85.7 fL Normal 82.0-98.0 [facility] Comment on above: Performed By: #### L [id number] #### [facility] ([facility]) [address] [place] [address] PLATELETS (10*3/UL) IN BLOOD AUTOMATED COUNT 243 10*3/uL Normal 150-400 [facility] Comment on above: Performed By: #### L [id number] #### [facility] ([facility]) [address] [place] [address] RBC (Bld) [#/Vol] 4.28 10*6/uL Normal 3.80-5.00 [facility] Comment on above: Performed By: #### L [id number] #### [facility] ([facility]) [address] [place] [address] WBC (Bld) [#/Vol] 7.41 10*3/uL Normal 4.00-10.60 [facility] Comment on above: Performed By: #### L [id number] #### [facility] ([facility]) [address] [place] [address] CONSULTon 06-30-2024 CONSULT Cardiology Consult Note Reason for Consult: NSTEMI, transfer from [facility] HPI: Aby Madrigal, a 59 y.o. female patient, is transferred from [facility] for continuity of care. Past medical history includes: HTN History of TIA DMII HLD SURESH Overweight Patient reports that 3 days ago, she woke up in the mid of the night with indigestion, and a feeling fullness, but no pressure like chest pain. She presented to [facility], where she was found to be [...] Value Ventricular Rate 71 Atrial Rate 71 GA Interval 176 QRS DURATION 92 QT Interval 424 QTC CALCULATION(BAZETT) 460 P [place] 52 R-[place]ollywood 19 T Wave [place] 164 Impression Normal sinus rhythm Left ventricular [...] Normal sinu (more content not included)... Normal [facility] 06-30-2024 H&P reviewed. The patient was examined and there are no changes to the H&P. 59 y.o. year old female with a PMHx significant for DM2, hypertension presents a direct mission from [facility] with a chief complaint of chest pain [...] to proceed. Signed, Yris Oakley MD PGY-4 Budget Record Clerk Pager: [phone] Normal [facility] POCT GLUCOSE METER UNSOLICIT ED RESULTSon 06-30-2024 Glucose [Mass/Vol] 170 mg/dL High 70-105 [facility] Comment on above: Order Comment: Waive d Testing in the ED is performed under the ED CLIA certificate #[id number]. Result Comment: [email or web address] Performed By: #### L [id number] #### [facility] ([facility]) [address] [place] [address] Glucose [Mass/Vol] 129 mg/dL High 70-105 [facility] Comment on above: Order Comment: Waive d Testing in the ED is performed under the ED CLIA certificate #[id number]. Result Comment: [email or web address] Performed By: #### L [id number] #### [facility] ([facility]) [address] [place] [address] Glucose [Mass/Vol] 167 mg/dL High 70-105 [facility] Comment on above: Order Comment: Waive d Testing in the ED is performed under the ED CLIA certificate #[id number]. Result Comment: [email or web address] Performed By: #### L [id number] #### [facility] (BEAKER) [address] [place] [address] TROPONIN Ion 06-30-2024 Troponin I.cardiac [Mass/Vol] 0.07 ng/mL High 0.00-0.04 [facility] Comment on above: Performed By: #### L [id number] #### [facility] ([facility] [address] [place] [address] Troponin I.cardiac [Mass/Vol] 0.10 ng/mL High 0.00-0.04 [facility] Comment on above: Performed By: #### L [id number] #### [facility] [address] [place] [address] Troponin I.cardiac [Mass/Vol] 0.11 ng/mL Critically high 0.00-0.04 [facility] Comment on above: Result Comment: M-TR OPONIN INITIAL CRITICAL HIGH; RESPUN AND RETESTED Performed By: #### L [id number] #### [facility] ([facility]) [address] [place] [address] 30on 06-29-2024 30 The patient is Moderately Stable - Low risk of patient condition declining or worsening The patient's goals for the shift include COMFORT The clinical goals for the shift include VSS Normal [facility] APTTon 06-29-2024 ACTIVATED PARTIAL THROMBOPLASTIN TIME IN PPP BY COAGULATION ASSAY 34.5 Seconds Normal 25.0-35.0 [facility] Comment on above: Order Comment: Basel ine aPTT before initiating heparin infusion. Result Comment: Clin ical significance of the APTT is questionable in the presence of heparin. Performed By: #### L [id number] #### [facility] (BEAKER) [address] [place] [address] B-TYPE NATRIURETIC PEPTIDEon 06-29-2024 Natriuretic peptide B (Bld) [Mass/Vol] 222 pg/mL High 0-100 [facility] Comment on above: Performed By: #### L [id number] #### [facility] ([email or web address]) [address] [place] [address] CBC WITH AUTO DIFFERENTIALon 06-29-2024 Basophils (Bld) [#/Vol] 0.05 10*3/uL Normal 0.00-0.20 [facility] Comment on above: Performed By: #### L [id number] #### [facility] ([email or web address]) [address] [place] [address] Basophils/100 WBC (Bld) 0.6 % Normal 0.0-1.0 [facility] Comment on above: Performed By: #### L [id number] #### [facility] ([facility] [address] [place] [address] Eosinophils (Bld) [#/Vol] 0.18 10*3/uL Normal 0.00-0.50 [facility] Comment on above: Performed By: #### L [id number] #### [facility] (BEAKER) [address] [place] [address] Eosinophils/100 WBC (Bld) 2.1 % Normal 0.0-6.0 [facility] Comment on above: Performed By: #### L [id number] #### [facility] ([facility]) [address] [place] [address] Erythrocyte distribution width (RBC) [Ratio] 14.9 % Normal 11.5-15.0 [facility] Comment on above: Performed By: #### L [id number] #### [facility] ([facility]) [address] [place] [address] ERYTHROCYTE MEAN CORPUSCULAR HEMOGLOBIN CONCENTRATION (G/DL) BY AUTOMATED 32.9 g/dL Normal 32.0-35.0 [facility] Comment on above: Performed By: #### L [id number] #### [facility] ([facility]) [address] [place] [address] Hematocrit (Bld) [Volume fraction] 35.9 % Low 36.0-48.0 [facility] Comment on above: Performed By: #### L [id number] #### [facility] ([facility]ER) [address] [place] [address] Hemoglobin (Bld) [Mass/Vol] 11.8 g/dL Low 12.0-15.0 [facility] Comment on above: Performed By: #### L [id number] #### [facility] (BEAKER) [address] [place] [address] Immature granulocytes (Bld) [#/Vol] 0.03 10*3/uL Normal 0.00-0.20 [facility] Comment on above: Performed By: #### L [id number] #### [facility] ([facility]) [address] [place] [address] Immature granulocytes/100 WBC (Bld) 0.3 % Normal 0.0-1.0 [facility] Comment on above: Performed By: #### L [id number] #### [facility] ([facility]) [address] [place] [address] Lymphocytes (Bld) [#/Vol] 2.02 10*3/uL Normal 1.20-4.00 [facility] Comment on above: Performed By: #### L [id number] #### [facility] ([facility]) [address] [place] [address] Lymphocytes/100 WBC (Bld) 23.5 % Normal 20.0-45.0 [facility] Comment on above: Performed By: #### L [id number] #### [facility] ([facility]) [address] [place] [address] MCH (RBC) [Entitic mass] 27.2 pg Normal 27.0-33.0 [facility] Comment on above: Performed By: #### L [id number] #### [facility] ([facility]) [address] [place] [address] MCV (RBC) [Entitic vol] 82.7 fL Normal 82.0-98.0 [facility] Comment on above: Performed By: #### L [id number] #### [facility] ([facility]) [address] [place] [address] Monocytes (Bld) [#/Vol] 0.56 10*3/uL Normal 0.10-1.00 [facility] Comment on above: Performed By: #### L [id number] #### [facility] ([facility]) [address] [place] [address] Monocytes/100 WBC (Bld) 6.5 % Normal 5.0-12.0 [facility] Comment on above: Performed By: #### L [id number] #### [facility] ([facility]) [address] [place] [address] Neutrophils (Bld) [#/Vol] 5.74 10*3/uL Normal 1.60-7.60 [facility] Comment on above: Performed By: #### L [id number] #### [facility] ([facility]) [address] [place] [address] Neutrophils/100 WBC (Bld) 67.0 % Normal 40.0-72.0 [facility] Comment on above: Performed By: #### L [id number] #### [facility] ([facility]) [address] [place] [address] NRBC (PER 100 WBCS) BY AUTOMATED COUNT 0.0 % Normal 0 [facility] Comment on above: Performed By: #### L [id number] #### [facility] ([facility]) [address] [place] [address] PLATELETS (10*3/UL) IN BLOOD AUTOMATED COUNT 233 10*3/uL Normal 150-400 [facility] Comment on above: Performed By: #### L [id number] #### [facility] ([facility]) [address] [place] [address] RBC (Bld) [#/Vol] 4.34 10*6/uL Normal 3.80-5.00 [facility] Comment on above: Performed By: #### L [id number] #### [facility] ([facility]) [address] [place] [address] WBC (Bld) [#/Vol] 8.58 10*3/uL Normal 4.00-10.60 [facility] Comment on above: Performed By: #### L [id number] #### [facility] ([facility]) [address] [place] [address] COMPREHENSIVE METABOLIC PANE Alec 06-29-2024 Albumin [Mass/Vol] 3.8 g/dL Normal 3.5-5.7 [facility] Comment on above: Performed By: #### L [id number] #### [facility] ([facility]ER) [address] [place] [address] ALP [Catalytic activity/Vol] 64 U/L Normal 34-104 [facility] Comment on above: Performed By: #### L [id number] #### [facility] ([facility] [address] [place] [address] ALT [Catalytic activity/Vol] 35 U/L Normal 7-52 [facility] Comment on above: Performed By: #### L [id number] #### [facility] ([facility]) [address] [place] [address] Anion gap [Moles/Vol] 12 mmol/L Normal 7-20 [facility] Comment on above: Performed By: #### L [id number] #### [facility] ([facility]) [address] [place] [address] AST [Catalytic activity/Vol] 21 U/L Normal 13-39 [facility] Comment on above: Performed By: #### L [id number] #### [facility] ([facility]) [address] [place] [address] Bilirubin [Mass/Vol] 0.4 mg/dL Normal 0.3-1.0 [facility] Comment on above: Performed By: #### L [id number] #### [facility] ([facility]) [address] [place] [address] Calcium [Mass/Vol] 8.5 mg/dL Low 8.6-10.3 [facility] Comment on above: Performed By: #### L [id number] #### [facility] ([facility]) [address] [place] [address] Chloride [Moles/Vol] 112 mmol/L High 98-107 [facility] Comment on above: Performed By: #### L [id number] #### [facility] ([facility]) [address] [place] [address] CO2 [Moles/Vol] 22 mmol/L Normal 21-31 [facility] Comment on above: Performed By: #### L [id number] #### [facility] ([facility]) [address] [place] [address] Creatinine [Mass/Vol] 0.92 mg/dL Normal 0.60-1.20 [facility] Comment on above: Performed By: #### L [id number] #### [facility] ([facility]) [address] [place] [address] GLOMERULAR FILTRATION RATE ML/MIN/1.73 SQ M.PREDICTED 71.3 mL/min/1.73m*2 Normal >60.0 [facility] Comment on above: Result Comment: The [facility]???s estimated glomerular filtration rate (eGFR) will [...] individuals. Performed By: #### L [id number] #### [facility] ([facility]) [address] [place] [address] Glucose [Mass/Vol] 108 mg/dL High 70-100 [facility] Comment on above: Performed By: #### L [id number] #### [facility] ([facility]) [address] [place] [address] Potassium [Moles/Vol] 3.7 mmol/L Normal 3.5-5.1 [facility] Comment on above: Performed By: #### L [id number] #### [facility] ([facility]) [address] [place] [address] Protein [Mass/Vol] 6.1 g/dL Normal 6.0-8.3 [facility] Comment on above: Performed By: #### L [id number] #### [facility] ([facility]) [address] [place] [address] Sodium [Moles/Vol] 142 mmol/L Normal 136-145 [facility] Comment on above: Performed By: #### L [id number] #### [facility] ([facility]) [address] [place] [address] Urea nitrogen [Mass/Vol] 11 mg/dL Normal 7-25 [facility] Comment on above: Performed By: #### L [id number] #### [facility] ([facility]) [address] [place] [address] UREA NITROGEN/CREATININE (MASS RATIO) IN SER/PLAS 12.0 Normal [facility] Comment on above: Performed By: #### L [id number] #### [facility] ([facility]) [address] [place] [address] MAGNESIUMon 06-29-2024 Magnesium [Mass/Vol] 1.7 mg/dL Low 1.9-2.7 [facility] Comment on above: Performed By: #### L [id number] #### [facility] ([facility]) [address] [place] [address] PHOSPHORUSon 06-29-2024 Magnesium [Mass/Vol] 2.9 mg/dL Normal 2.5-5.0 [facility] Comment on above: Performed By: #### L [id number] #### [facility] ([facility]) [address] [place] [address] PROTIME-INRon 06-29-2024 INR IN PPP BY COAGULATION ASSAY 0.99 Normal 0.90-1.10 [facility] Comment on above: Result Comment: ACCC [...] 1995;108:[id number]-246S. Performed By: #### L AB15 #### [facility] ([facility]) [address] [place] [address] PROTHROMBIN TIME (PT) IN PPP BY COAGULATION ASSAY 13.1 Seconds Normal 12.3-14.8 [facility] Comment on above: Performed By: #### L AB15 #### [facility] ([facility]) [address] [place] [address] TROPONIN Ion 06-29-2024 Troponin I.cardiac [Mass/Vol] 0.10 ng/mL High 0.00-0.04 [facility] Comment on above: Performed By: #### L [id number] #### [facility] ([facility]) [address] [place] [address] Office Visiton 06-21-2024 Follow-up visit [id number] Aby Madrigal 1965 F Date Provider Department Center 06/21/2024 GOMEZ KENDALL RIAZ [place] Family History Problem Relation Age of Onset Lung cancer Mother No Known Problems Father Lung cancer Sister Family Status - Relation Status Age at Mother Father Sister Level of Service:11089 [place] OFFICE/OUTPATIENT ESTABLISHED MOD MDM 30 MIN Normal [facility] Office Visiton 05-26-2024 Follow-up visit [id number] Sanjana Madrigalty S 1965 F Date Provider Department Center 05/26/2024 BIJAN LAWLER RIAZ [place] Family History Problem Relation Age of Onset Lung cancer Mother No Known Problems Father Lung cancer Sister Family Status - Relation Status Age at Mother Father Sister Level of Service:84026 [place] OFFICE/OUTPATIENT NEW MODERATE MDM 45 MINUTES Normal [facility] Outside Colonoscopyon 2022 Outside Colonoscopy [id number]#1.0 0CD:127 Normal [facility] Reminderson 11-27-2022 Reminders - From: Na Hayes LPN To: N - Clinical; Sent: 11/27/2022 12:46:10 EST Show up: 10/25/2032 07:00:00 EST Subject: colonoscopy recall Due Date/Time: 11/25/2032 07:00:00 EST Reminder/Recall Patient is due for screening colonoscopy 11/25/2032. Normal [facility] Lab Reportson 11-24-2022 Lab Reports [id number]#[id number] 0CD:127 Normal [facility]19 [facility]on 10-24 SARS-CoV-2 (COVID-19) RNA BECK+probe Ql (Unsp spec) Not detected Normal NOT DETECTED [facility] Comment on above: Result Comment: This test is not yet approved or cleared by the [place] FDA. When there are no FDA-approved or cleared tests available, and other criteria are met, FDA can make tests available under an emergency access mechanism called an Emergency Use Authorization (EUA). The EUA for this test is supported by the [place] of Health and Human Service's (HHS's) declaration [...] consistent with SARS-CoV-2. Performed By: #### [facility] #### [facility] [address] [place] [address] Dr. Rich Cutler Consent for Procedure/Surger yon 10-07-2022 Consent for Procedure/Surgery [id number]#1.0 0CD:127 Normal [facility] Ambulatory Visit Summaryon 1 12-06-2021 [...] Allergic conjunctivitis Anticoagulated Kidney stones Normal [facility] VC VENOUS REFLUX NINO LMTon 1 12-02-2021 VC VENOUS REFLUX NINO LMT Patient: ABY MADRIGAL Exam Date: 10/02/2022 : 1965 Gender:F Ordering : DR KENDRA MURILLO . Admission #: [id number] Family : Order #: [id number] CLICK HERE TO VIEW EXAM RADIOLOGY REPORT [...] chronic thrombus visualized Compressibility: Normal Flow: Normal Rn Faculty: Dist/med calf 3.3mm with 0s reflux. Tech Note: Incompetent SFJ and GSV. Patent varicose vein mid/med calf 2.9mm with 0s reflux. Patent varicose vein prox/post calf 3.8mm with 0s reflux. Patent varicose vein dist/med thigh 3.8mm with 2.0s reflux. CONCLUSION: 1. Mild right and [id number] left great saphenous vein venous insufficiency with dilatation 2. Left saphenous popliteal junction reflux 3. Mild left anterior accessory saphenous vein venous insufficiency without dilatation 4. Small bilateral incompetent varicose veins Dictated by: Adelia Lezama MD on 10/02/2022 at 13:36 Approved by: Adelia Lezama MD on 10/02/2022 at 13:52 Normal [facility] ECHOCARDIO M/2D COMPLETEon 1 11-30-2021 ECHOCARDIO M/2D COMPLETE Patient: ABY MADRIGAL Exam Date: 09/30/2022 : 1965 Gender:F Ordering : DR KENDRA MURILLO . Admission #: [id number] Family : Order #: [id number] CLICK HERE TO VIEW EXAM ECHOCARDIOGRAM REPORT [...] M.D. on 09/30/2022 at 18:37 Normal [facility] BNPon 09-24-2022 Natriuretic peptide B (Bld) [Mass/Vol] 501.0 pg/mL Normal <=900.0 [facility] Comment on above: Performed By: #### C VDTB #### [facility] [address] [place] [address] Dr. Rich Cutler CBC AUTO DIFFon 09-24-2022 BASO # 0.1 103/ul Normal 0.0-0.1 [facility] Comment on above: Performed By: #### C VDTBH #### [facility] [address] [place] [address] Dr. Rich Cutler Basophils/100 WBC (Bld) 0.8 % Normal 0.2-2.0 [facility] Comment on above: Performed By: #### C VDTBH #### [facility] [address] [place] [address] Dr. Rich Cutler EO # 0.3 103/ul Normal 0.0-0.7 [facility] Comment on above: Performed By: #### C VDTBH #### [facility] [address] [place] [address] Dr. Rich Cutler Eosinophils/100 WBC (Bld) 3.4 % Normal 0.9-7.0 [facility] Comment on above: Performed By: #### C VDTBH #### [facility] [address] [place] [address] Dr. Rich Cutler Erythrocyte distribution width (RBC) [Ratio] 13.3 % Normal 11.0-15.0 [facility] Comment on above: Performed By: #### C VDTBH #### [facility] [address] [place] [address] Dr. Rich Cutler Hematocrit (Bld) [Volume fraction] 40.5 % Normal 36.0-48.0 [facility] Comment on above: Performed By: #### C VDTBH #### [facility] [address] [place] [address] Dr. Rich Cutler Hemoglobin (Bld) [Mass/Vol] 13.1 g/dL Normal 12.0-16.0 [facility] Comment on above: Performed By: #### C VDTBH #### [facility] [address] [place] [address] Dr. Rich Cutler IG # 0.02 10e3/ul Normal 0.00-0.03 [facility] Comment on above: Performed By: #### C VDTBH #### [facility] [address] [place] [address] Dr. Rich Cutler IG % 0.3 % Normal 0.0-0.5 [facility] Comment on above: Performed By: #### C VDTBH #### [facility] [address] [place] [address] Dr. Rich Cutler LYMPH # 2.7 103/ul Normal 1.2-3.8 [facility] Comment on above: Performed By: #### C VDTBH #### [facility] [address] [place] [address] Dr. Rich Cutler Lymphocytes/100 WBC (Bld) 35.4 % Normal 20.5-60.0 [facility] Comment on above: Performed By: #### C VDTBH #### [facility] [address] [place] [address] Dr. Rich Cutler MANUAL DIFF REQ NO Normal [facility] Comment on above: Performed By: #### C VDTBH #### [facility] [address] [place] [address] Dr. Rich Cutler MCH (RBC) [Entitic mass] 28.2 pg Normal 26.7-34.0 [facility] Comment on above: Performed By: #### C VDTBH #### [facility] [address] [place] [address] Dr. Rich Cutler MCHC (RBC) [Mass/Vol] 32.3 g/dL Normal 29.9-35.2 [facility] Comment on above: Performed By: #### C VDTBH #### [facility] [address] [place] [address] Dr. Rich Cutler MCV (RBC) [Entitic vol] 87.3 fL Normal 81.0-99.0 [facility] Comment on above: Performed By: #### C VDTBH #### [facility] [address] [place] [address] Dr. Rich Cutler MONO # 0.5 103/ul Normal 0.3-0.8 [facility] Comment on above: Performed By: #### C VDTBH #### [facility] [address] [place] [address] Dr. Rich Cutler Monocytes/100 WBC (Bld) 6.5 % Normal 1.7-12.0 [facility] Comment on above: Performed By: #### C VDTBH #### [facility] [address] [place] [address] Dr. Rich Cutler NEUT # 4.1 103/ul Normal 1.4-6.5 [facility] Comment on above: Performed By: #### C VDTBH #### [facility] [address] [place] [address] Dr. Rich Cutler Neutrophils/100 WBC (Bld) 53.6 % Normal 43.0-75.0 [facility] Comment on above: Performed By: #### C VDTBH #### [facility] [address] [place] [address] Dr. Rich Cutler Platelet mean volume (Bld) [Entitic vol] 10.3 fL Normal 9.5-13.5 [facility] Comment on above: Performed By: #### C VDTB #### [facility] [address] [place] [address] Dr. Rich Cutler PLT 283 103/ul Normal 150-450 [facility] Comment on above: Performed By: #### C VDTBH #### [facility] [address] [place] [address] Dr. Rich Cutler RBC 4.64 106/ul Normal 4.20-5.40 [facility] Comment on above: Performed By: #### C VDTBH #### [facility] [address] [place] [address] Dr. Rich Cutler WBC 7.6 103/ul Normal 4.0-11.0 [facility] Comment on above: Performed By: #### C VDTBH #### [facility] [address] [place] [address] Dr. Rich Cutler INSULINon 09-24-2022 Insulin 15.1 uIU/mL Normal 2.6-24.9 [facility] Comment on above: Performed By: #### C VDTBH #### [facility] [address] [place] [address] Dr. Rich Cutler PROF 14(COMP METB)on 022 Albumin [Mass/Vol] 3.5 g/dL Normal 3.4-5.0 [facility] Comment on above: Performed By: #### C VDTBH #### [facility] [address] [place] [address] Dr. Rich Cutler Albumin/Globulin [Mass ratio] 1.0 {ratio} Normal [facility] Comment on above: Performed By: #### C VDTBH #### [facility] [address] [place] [address] Dr. Rich Cutler ALP [Catalytic activity/Vol] 91 U/L Normal 46-116 [facility] Comment on above: Performed By: #### C VDTBH #### [facility] [address] [place] [address] Dr. Rich Cutler ALT [Catalytic activity/Vol] 47 U/L Normal 14-59 [facility] Comment on above: Performed By: #### C VDTB #### [facility] [address] [address] [address] Rich Cutler Anion gap [Moles/Vol] 11.7 mmol/L Normal [facility] Comment on above: Performed By: #### C VDTBH #### [facility] [address] [address] [address] Rich Cutler AST [Catalytic activity/Vol] 24 U/L Normal 15-37 [facility] Comment on above: Performed By: #### C VDTBH #### [facility] [address] [address] [address] Rich Cutler Bilirubin [Mass/Vol] 0.2 mg/dL Normal 0.2-1.0 [facility] Comment on above: Performed By: #### C VDTBH #### [facility] [address] [place] [address] Dr. Rich Cutler Calcium [Mass/Vol] 8.9 mg/dL Normal 8.5-10.1 [facility] Comment on above: Performed By: #### C VDTBH #### [facility] [address] [place] [address] Dr. Rich Cutler Chloride [Moles/Vol] 105 mmol/L Normal 98-107 [facility] Comment on above: Performed By: #### C VDTBH #### [facility] [address] [place] [address] Dr. Rich Cutler CO2 [Moles/Vol] 28.1 mmol/L Normal 21.0-32.0 [facility] Comment on above: Performed By: #### C VDTBH #### [facility] [address] [place] [address] Dr. Rich Cutler Creatinine [Mass/Vol] 1.13 mg/dL Critically high 0.55-1.02 [facility] Comment on above: Performed By: #### C VDTBH #### [facility] [address] [address] [address] Rich Cutler EGFR-AF [place] 60 mL/min/1.73m2 Normal >=60 [facility] Comment on above: Performed By: #### C VDTBH #### [facility] [address] [address] [address] Rich Cutler EGFR-NON AF [place] 49 mL/min/1.73m2 Critically low >=60 [facility] Comment on above: Performed By: #### C VDTBH #### [facility] [address] [address] [address] Rich Cutler Globulin (S) [Mass/Vol] 3.5 g/dL Normal [facility] Comment on above: Performed By: #### C VDTBH #### [facility] [facility] [address] [address] [address] Rich Cutler Glucose [Mass/Vol] 119 mg/dL Critically high 74-[address] [facility] Comment on above: Performed By: #### C VDTBH #### [facility] [address] [place] [address] Dr. Rich Cutler Potassium [Moles/Vol] 3.8 mmol/L Normal 3.5-5.1 [facility] Comment on above: Performed By: #### C VDTBH #### [facility] [address] [place] [address] Dr. Rich Cutler Protein [Mass/Vol] 7.0 g/dL Normal 6.4-8.2 [facility] Comment on above: Performed By: #### C VDTBH #### [facility] [address] [place] [address] Dr. Rich Cutler Sodium [Moles/Vol] 141 mmol/L Normal 136-145 [facility] Comment on above: Performed By: #### C VDTBH #### [facility] [address] [place] [address] Dr. Rich Cutler Urea nitrogen [Mass/Vol] 16.0 mg/dL Normal 7.0-18.0 [facility] Comment on above: Performed By: #### C VDTBH #### [facility] [address] [address] [address] Rich Cutler Urea nitrogen/Creatinine [Mass ratio] 14.2 mg/mg Normal [facility] Comment on above: Performed By: #### C VDTBH #### [facility] [address] [address] [address] Rich Cutler TROPONIN, HIGH SENSITIVITYon 09-24-2022 HSTROP 10.6 pg/mL Normal 4.0-51.3 [facility] Comment on above: Result Comment: CUT- OFF POINTS HAVE BEEN ESTABLISHED BASED ON THE FOURTH UNIVERSAL DEFINITIONS OF MYOCARDIAL INFARCTION. THE UPPER REFERENCE LIMIT (URL) OF TROPONIN, DEFINED THE 99TH PERCENTILE OF cTnI DISTRIBUTION IN A REFERENCE POPULATION, HAS BEEN CONFIRMED THE DECISION THRESHOLD FOR OK DIAGNOSIS. Performed By: #### C VDTBH #### [facility] [address] [place] [address] Dr. Rich Cutler XR CHEST 1 Von [...] UMM HUMPHRIES Date: 2022-09-24 04:08 Normal [facility] CBC AUTO DIFFon 09-23-2022 BASO # 0.1 103/ul Normal 0.0-0.1 [facility] Comment on above: Performed By: #### C BC #### [facility] [address] [place] [address] Dr. Rich Cutler Basophils/100 WBC (Bld) 0.8 % Normal 0.2-2.0 [facility] Comment on above: Performed By: #### C BC #### [facility] [address] [place] [address] Dr. Rich Cutler EO # 0.2 103/ul Normal 0.0-0.7 [facility] Comment on above: Performed By: #### C BC #### [facility] [address] [place] [address] Dr. Rich Cutler Eosinophils/100 WBC (Bld) 3.5 % Normal 0.9-7.0 [facility] Comment on above: Performed By: #### C BC #### [facility] [address] [place] [address] Dr. Rich Cutler Erythrocyte distribution width (RBC) [Ratio] 13.4 % Normal 11.0-15.0 [facility] Comment on above: Performed By: #### C BC #### [facility] [address] [place] [address] Dr. Rich Cutler Hematocrit (Bld) [Volume fraction] 42.3 % Normal 36.0-48.0 [facility] Comment on above: Performed By: #### C BC #### [facility] [address] [place] [address] Dr. Rich Cutler Hemoglobin (Bld) [Mass/Vol] 13.4 g/dL Normal 12.0-16.0 [facility] Comment on above: Performed By: #### C BC #### [facility] [address] [place] [address] Dr. Rich Cutler IG # 0.03 10e3/ul Normal 0.00-0.03 [facility] Comment on above: Performed By: #### C BC #### [facility] [address] [place] [address] Dr. Rich Cutler IG % 0.5 % Normal 0.0-0.5 [facility] Comment on above: Performed By: #### C BC #### [facility] [address] [place] [address] Dr. Rich Cutler LYMPH # 2.9 103/ul Normal 1.2-3.8 [facility] Comment on above: Performed By: #### C BC #### [facility] [address] [place] [address] Dr. Rich Cutler Lymphocytes/100 WBC (Bld) 44.0 % Normal 20.5-60.0 [facility] Comment on above: Performed By: #### C BC #### [facility] [address] [place] [address] Dr. Rich Cutler MANUAL DIFF REQ NO Normal [facility] Comment on above: Performed By: #### C BC #### [facility] [address] [place] [address] Dr. Rich Cutler MCH (RBC) [Entitic mass] 28.4 pg Normal 26.7-34.0 [facility] Comment on above: Performed By: #### C BC #### [facility] [address] [place] [address] Dr. Rich Cutler MCHC (RBC) [Mass/Vol] 31.7 g/dL Normal 29.9-35.2 [facility] Comment on above: Performed By: #### C BC #### [facility] [address] [place] [address] Dr. Rich Cutler MCV (RBC) [Entitic vol] 89.6 fL Normal 81.0-99.0 [facility] Comment on above: Performed By: #### C BC #### [facility] [address] [place] [address] Dr. Rich Cutler MONO # 0.4 103/ul Normal 0.3-0.8 [facility] Comment on above: Performed By: #### C BC #### [facility] [address] [place] [address] Dr. Rich Cutler Monocytes/100 WBC (Bld) 6.6 % Normal 1.7-12.0 [facility] Comment on above: Performed By: #### C BC #### [facility] [address] [place] [address] Dr. Rich Cutler NEUT # 2.9 103/ul Normal 1.4-6.5 [facility] Comment on above: Performed By: #### C BC #### [facility] [address] [place] [address] Dr. Rich Cutler Neutrophils/100 WBC (Bld) 44.6 % Normal 43.0-75.0 [facility] Comment on above: Performed By: #### C BC #### [facility] [address] [place] [address] Dr. Rich Cutler Platelet mean volume (Bld) [Entitic vol] 11.0 fL Normal 9.5-13.5 [facility] Comment on above: Performed By: #### C BC #### [facility] [address] [place] [address] Dr. Rich Cutler PLT 272 103/ul Normal 150-450 [facility] Comment on above: Performed By: #### C BC #### [facility] [address] [place] [address] Dr. Rich Cutler RBC 4.72 106/ul Normal 4.20-5.40 [facility] Comment on above: Performed By: #### C BC #### [facility] [address] [place] [address] Dr. Rich Cutler WBC 6.5 103/ul Normal 4.0-11.0 [facility] Comment on above: Performed By: #### C BC #### [facility] [address] [place] [address] Dr. Rich Cutler FREE THYROXINE INDEX T7on FTI 2.16 Normal 1.30-4.50 [facility] Comment on above: Performed By: #### L IPID, TSH, T7, CMP #### [facility] [address] [place] [address] Dr. Rich Cutler T3U 30.0 % Normal 30.0-39.0 [facility] Comment on above: Performed By: #### L IPID, TSH, T7, CMP #### [facility] [address] [place] [address] Dr. Rich Cutler T4 [Mass/Vol] 7.20 ug/dL Normal 4.80-13.90 [facility] Comment on above: Performed By: #### L IPID, TSH, T7, CMP #### [facility] [address] [place] [address] Dr. Rich Cutler GLYCOHEMOGLOBIN A1Con 2021 ADA RECOMMENDATION SEE BELOW Normal [facility] Comment on above: Result Comment: ADA RECOMMENDED LIMIT 4.0 - 6.0 ADA THERAPEUTIC TARGET < 7.0 ACTION SUGGESTED > 7.0 Performed By: #### A 1C #### [facility] [address] [address] [address] Rich Cutler Glucose [Mass/Vol] 128 mg/dL Normal [facility] Comment on above: Performed By: #### A 1C #### [facility] [address] [place] [address] Dr. Rich Cutler HbA1c (Bld) [Mass fraction] 6.1 % Normal 4.5-6.2 [facility] Comment on above: Performed By: #### A 1C #### [facility] [address] [place] [address] Dr. Rich Cutler IRONon 09-23-2022 Iron [Mass/Vol] 64.0 ug/dL Normal 50.0-170.0 [facility] Comment on above: Performed By: #### C VDTBH #### [facility] [address] [place] [address] Dr. Rich Cutler LIPID PROFILEon 09-23-2022 CHOL-HDL RATIO NORM SEE BELOW Normal [facility] Comment on above: Result Comment: 3.3 - 4.4 LOW RISK 4.4 - 7.1 AVERAGE RISK 7.1 - 11.0 MODERATE RISK >11.0 HIGH RISK Performed By: #### L IPID, TSH, T7, CMP #### [facility] [address] [place] [address] Dr. Rich Cutler Cholesterol [Mass/Vol] 237 mg/dL Critically high <=200 [facility] Comment on above: Performed By: #### L IPID, TSH, T7, CMP #### [facility] [address] [place] [address] Dr. Rich Cutler Cholesterol in HDL [Mass/Vol] 44 mg/dL Normal 40-60 [facility] Comment on above: Performed By: #### L IPID, TSH, T7, CMP #### [facility] [address] [place] [address] Dr. Rich Cutler Cholesterol in LDL [Mass/Vol] 172.2 mg/dL Normal [facility] Comment on above: Performed By: #### L IPID, TSH, T7, CMP #### [facility] [address] [address] [address] Rich Cutler Cholesterol.total/C holesterol in HDL [Mass ratio] 5.4 {ratio} Normal [facility] Comment on above: Performed By: #### L IPID, TSH, T7, CMP #### [facility] [address] [place] [address] Dr. Rich Cutler HDL NORMAL > or = 60 mg/dl - LO W CARDIOVASCULAR RISK <40 mg/dl - HIGH CARDIOVASCULAR RISK Normal [facility] Comment on above: Performed By: #### L IPID, TSH, T7, CMP #### [facility] [address] [address] [address] Rich Cutler LDL CALC NORMAL SEE BELOW Normal [facility] Comment on above: Result Comment: <100 mg/dl OPTIMAL 100 - 129 mg/dl NEAR OR ABOVE OPTIMAL 130 - 159 mg/dl BORDERLINE HIGH 160 - 189 mg/dl HIGH >190 mg/dl VERY HIGH Performed By: #### L IPID, TSH, T7, CMP #### [facility] [address] [place] [address] Dr. Rich Cutler Triglyceride [Mass/Vol] 104 mg/dL Normal <=150 [facility] Comment on above: Performed By: #### L IPID, TSH, T7, CMP #### [facility] [address] [place] [address] Dr. Rich Cutler VLDL CALC 20.8 mg/dL Normal [facility] Comment on above: Performed By: #### L IPID, TSH, T7, CMP #### [facility] [address] [place] [address] Dr. Rich Cutler PROF 14(COMP METB)on 022 Albumin [Mass/Vol] 3.5 g/dL Normal 3.4-5.0 [facility] Comment on above: Performed By: #### L IPID, TSH, T7, CMP #### [facility] [address] [place] [address] Dr. Rich Cutler Albumin/Globulin [Mass ratio] 0.9 {ratio} Normal [facility] Comment on above: Performed By: #### L IPID, TSH, T7, CMP #### [facility] [address] [address] [address] Rich Cutler ALP [Catalytic activity/Vol] 93 U/L Normal 46-116 [facility] Comment on above: Performed By: #### L IPID, TSH, T7, CMP #### [facility] [address] [address] [address] Rich Cutler ALT [Catalytic activity/Vol] 44 U/L Normal 14-59 [facility] Comment on above: Performed By: #### L IPID, TSH, T7, CMP #### [facility] [address] [place] [address] Dr. Rich Cutler Anion gap [Moles/Vol] 8.5 mmol/L Normal [facility] Comment on above: Performed By: #### L IPID, TSH, T7, CMP #### [facility] [address] [place] [address] Dr. Rich Cutler AST [Catalytic activity/Vol] 26 U/L Normal 15-37 [facility] Comment on above: Performed By: #### L IPID, TSH, T7, CMP #### [facility] [address] [address] [address] Rich Cutler Bilirubin [Mass/Vol] 0.3 mg/dL Normal 0.2-1.0 [facility] Comment on above: Performed By: #### L IPID, TSH, T7, CMP #### [facility] [address] [address] [address] Rich Cutler Calcium [Mass/Vol] 9.0 mg/dL Normal 8.5-10.1 [facility] Comment on above: Performed By: #### L IPID, TSH, T7, CMP #### [facility] [address] [address] [address] Rich Cutler Chloride [Moles/Vol] 106 mmol/L Normal 98-107 [facility] Comment on above: Performed By: #### L IPID, TSH, T7, CMP #### [facility] [address] [address] [address] Rich Cutler CO2 [Moles/Vol] 31.0 mmol/L Normal 21.0-32.0 [facility] Comment on above: Performed By: #### L IPID, TSH, T7, CMP #### [facility] [address] [address] [address] Rich Cutler Creatinine [Mass/Vol] 1.11 mg/dL Critically high 0.55-1.02 [facility] Comment on above: Performed By: #### L IPID, TSH, T7, CMP #### [facility] [address] [place] [address] Dr. Rich Cutler EGFR-AF COSTA RICAN >60 Normal >=60 [facility] Comment on above: Performed By: #### L IPID, TSH, T7, CMP #### [facility] [address] [place] [address] Dr. Rich Cutler EGFR-NON AF [place] RICAN 50 mL/min/1.73m2 Critically low >=60 [facility] Comment on above: Performed By: #### L IPID, TSH, T7, CMP #### [facility] [address] [place] [address] Dr. Rich Cutler Globulin (S) [Mass/Vol] 3.7 g/dL Normal [facility] Comment on above: Performed By: #### L IPID, TSH, T7, CMP #### [facility] [address] [place] [address] Dr. Rich Cutler Glucose [Mass/Vol] 121 mg/dL Critically high 74-[address] [facility] Comment on above: Performed By: #### L IPID, TSH, T7, CMP #### [facility] [address] [place] [address] Dr. Rich Cutler Potassium [Moles/Vol] 4.5 mmol/L Normal 3.5-5.1 [facility] Comment on above: Performed By: #### L IPID, TSH, T7, CMP #### [facility] [address] [place] [address] Dr. Rich Cutler Protein [Mass/Vol] 7.2 g/dL Normal 6.4-8.2 [facility] Comment on above: Performed By: #### L IPID, TSH, T7, CMP #### [facility] [address] [address] [address] Rich Cutler Sodium [Moles/Vol] 141 mmol/L Normal 136-145 [facility] Comment on above: Performed By: #### L IPID, TSH, T7, CMP #### [facility] [address] [address] [address] Rich Cutler Urea nitrogen [Mass/Vol] 16.0 mg/dL Normal 7.0-18.0 [facility] Comment on above: Performed By: #### L IPID, TSH, T7, CMP #### [facility] [address] [address] [address] Rich Cutler Urea nitrogen/Creatinine [Mass ratio] 14.4 mg/mg Normal [facility] Comment on above: Performed By: #### L IPID, TSH, T7, CMP #### [facility] [address] [address] [address] Rich Cutler TSHon 09-23-2022 TSH 3.915 uIU/mL Critically high 0.358-3.740 [facility] Comment on above: Performed By: #### L IPID, TSH, T7, CMP #### [facility] [address] [place] [address] Dr. Rich Cutler Physician Referralon 022 Physician Referral [phone] 00 [id number] Normal [facility] Lipid Panelon 10-07-2021 Cholesterol [Mass/Vol] 205 mg/dL High 140-200 [facility] Comment on above: Result Comment: Chol less than 200 mg/dl low risk Chol 201-239 mg/dl borderline risk Chol 240 mg/dl and greater high risk Performed By: #### L IPID, [id number], TSH3 wRFLX #### [address] Cholesterol in HDL [Mass/Vol] 25 mg/dL Low 35-85 [facility] Comment on above: Result Comment: HDL CHOL ATP-III CLASSIFICATION Cardiovascular Risk HDL > or equal to 60 mg/dL LOW HDL < 40 mg/dL HIGH Performed By: #### L IPID, [id number], TSH3 wRFLX #### [facility] [address] Cholesterol.total/C holesterol in HDL [Mass ratio] 8.2 {ratio} Normal <5.0 [facility] Comment on above: Performed By: #### L IPID, [id number], TSH3 wRFLX #### [facility] [address] LDL Cholesterol,Calcula coby 160 mg/dL High 0-100 [facility] Comment on above: Result Comment: LDL ATP III CLASSIFICATION LDL less than 100 mg/dL Optimal LDL 100-129 mg/dL Near or above optimal LDL 130-159 mg/dL Borderline high LDL 160-189 mg/dL High LDL greater than 189 mg/dL Very high Performed By: #### L IPID, [id number], TSH3 wRFLX #### [address] Triglyceride w/Reflex 100 mg/dL Normal 35-149 [facility] Comment on above: Result Comment: TRIG ATP III CLASSIFICATION TRIG less than 150 mg/dL Normal TRIG 150-199 mg/dL Borderline high TRIG 200-500 mg/dL High TRIG greater than 500 mg/dL Very high Standard traceable to the Center for Disease Conrtrol and Prevention (CDC) test method. Performed By: #### L IPID, [id number], TSH3 wRFLX #### [facility] [address] [place] [address] VLDL CHOLESTEROL 20 mg/dL Normal [facility] Comment on above: Performed By: #### L IPID, [id number], TSH3 wRFLX #### [facility] [address] Thyroid Stim Hormone w/Rflxo n 10-07-2021 Thyroid Stim Hormone w/Rflx 3.27 u[iU]/mL Normal 0.45-5.33 [facility] Comment on above: Performed By: #### L IPID, [id number], TSH3 wRFLX #### [facility] [address] [place] [address] [facility] Vitamin D 25 Hydroxy Totalon 10-07-2021 Vitamin D 25 Hydroxy Total 26.5 ng/mL Low 30-100 [facility] Comment on above: Result Comment: JACKELINE MIN D STATUS 25(OH)VITAMIN D RANGE (ng/mL) Deficient <20 Insufficient 20 to <30 Sufficient 30 to 100 Reference: Lanny MF,Gino NC, Dyan VALENZUELA, et al. Evaluation,treatment, and prevention of vitamin D deficiency; an Endocrine Society clinical practice guideline. JCEM. 2010; 96(7):1911-30. PERFORMED BY: [place] [address] PATHOLOGIST [employer] C[employer]TING MACHINE FEEDER SILVESTRE SCHULER M.D. Performed By: #### L IPID, [id number], TSH3 wRFLX #### [place] [id number] [facility] Vital Signs Date Time Vital Sign Value Performing Clinician Deidre gagnon 10-06-2022 15:36-0500 Blood Pressure Location Umm GEORGIEL [facility] [place] 10-06-2022 15:36-0500 Diastolic blood pressure 86 mm[Hg] Umm JACQUESL [facility] [place] 10-06-2022 15:36-0500 Heart rate 72 /min Umm JACQUESL [facility] [place] 10-06-2022 15:36-0500 Respiratory rate 16 /min Umm JACQUESL [facility] [place] 10-06-2022 15:36-0500 Systolic blood pressure 126 mm[Hg] Umm JACQUESL [facility] [place] Encounters Encounter Date Encounter Type Care Provider Facility Start: 07-20-2024 ambulatory RICHA Dunham [facility] Start: 07-18-2024 ambulatory FENG CHRISTIE [facility] Start: 07-18-2024 End: 07-18-2024 Emergency department patient visit HERMINIA LI [facility] Start: 07-18-2024 End: 07-18-2024 ambulatory MESERET MAC [facility] Start: 07-11-2024 Evaluation and manag ement of inpatient [facility] Start: 07-11-2024 Evaluation and manag ement of inpatient [facility] Start: 07-11-2024 Emergency department patient visit FEDERICA ANDERSON [facility] Start: 07-11-2024 End: 07-12-2024 [facility] Start: 07-10-2024 End: 07-10-2024 ambulatory [facility] Start: 06-30-2024 Evaluation and manag ement of inpatient [facility] Start: 06-30-2024 Evaluation and manag ement of inpatient [facility] Start: 06-29-2024 End: 07-01-2024 Evaluation and management of inpatient KENDRA MURILLO [facility] Start: 06-21-2024 End: 06-21-2024 [facility] Start: 05-26-2024 End: 05-26-2024 ambulatory [facility] Start: 11-26-2022 Encounter for preprocedural laboratory examination DR UMM MARTÍNEZ . [facility] Start: 11-25-2022 End: 11-26-2022 ambulatory Umm MARTÍNEZ Facility:CD:[id number] Start: 11-20-2022 End: 11-21-[address] UMM MARTÍNEZ . Facility: Start: 11-20-2022 End: 11-21-2022 Encounter for preprocedural laboratory examination DR UMM MARTÍNEZ . Facility: Start: 10-06-2022 End: 10-07-2022 ambulatory Umm MARTÍNEZ Facility:[facility] Start: 10-06-2022 End: 10-06-2022 Patient encounter procedure Umm MARTÍNEZ [facility] [place] Start: 10-02-2022 End: 10-03-[address] KENDRA MURILLO . Facility:[facility] Start: 09-30-2022 End: 10-01-[address] KENDRA MURILLO . Facility:[facility] Start: 09-28-2022 Encounter for genera l adult medical examination without abnormal findings DR KENDRA MURILLO . [facility] Start: 09-24-2022 End: 09-24-[address] SYBIL [...] mRNA BNT-162b2 vax Umm NILL [facility] [place] 03-11-2021 SARS-CoV-2 (COVID-19 ) mRNA BNT-162b2 vax Umm NILL [facility] [place] Payers Date Payer Category Payer Medicaid [id number] 1965 Unknown [id number] 2.16.8 [id number] 1965 Unknown [id number] 2.16.8 [id number] 1965 Unknown [id number] 2.16.84 [id number] 1965 Unknown [id number] 2.16.84 [id number] 1965 Unknown [id number] 2.16.84 [id number] 1965 Unknown [id number] 2.16.84 [id number] 1965 Unknown [id number] 2.16.84 [id number] 1965 Unknown [id number] 2.16.84 [id number] 1965 Unknown [id number] 2.16.84 [id number] 1960 Self-pay [id number] 1960 Unknown [id number] Social History Date Type Detail Facility Start: 10-06-2022 Tobacco smoking status Ex-smoker (fi nding) [facility] Tobacco smoking status Never [facility] [place] Sex Assigned At Female [facility] Functional Status Date Assessment Result [...] Age: 59 y.o. : 1965 Account No.: [id number] Referring physician: Dr. Jarocho Saldaña Chief complaint: RML nodule HPI Aby Madrigal is a 59 y.o. female with hypertension, CAD status post PCI recently in June 2024,, cigarette smoking who is presenting to IP clinic via telemedicine as a new patient after being referred by Dr. Jarocho Saldaña. Patient reports recent admission to [facility] for hypertensive emergency. This prompted a CT of the chest which was positive for right middle lobe nodule. She then underwent PCI here at [facility] in June. She is currently on aspirin [...] PFTs on file. CTA chest 04/21/2024 at [facility]: Right middle lobe approximately 1 cm spiculated nodule appreciated Subsequent PET CT 2024 at [facility]: Right middle lobe nodule is faintly PET avid Past Medical History: Diagnosis Date Abnormal ECG Diabetes mellitus (CMS/HCC) Hyperlipidemia Hypertension Obstructive sleep apnea Panic attacks Stroke ([facility]/HCC) Past Surgical History: Procedure Laterality Date CEREBRAL [...] alcohol. She reports (more content not included)... [facility] 07-18-2024 Note REASON FOR VISIT + [...] metoprolol - CT A/P Jun 2019 in [place], [place] performed for abd pain, incidentally detected [...] History: Diagnosis Date Abnormal ECG Diabetes mellitus ([facility]) Hyperlipidemia Hypertension Obstructive sleep apnea Panic attacks Stroke ([facility]) Past Surgical History: Procedure Laterality [...] Rfl: carvedilol (C (more content not included)... 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 Resides at home alone. Discharge plan is home. [facility] 07-18-2024 Note Patient sent to ED f or hypotension and dizziness/lightheadedness [facility] 07-12-2024 Note Hospital Medicine Discharge Summary Final Discharge Diagnosis: NSTEMI Admission Diagnosis: Hypokalemia [E87.6] NSTEMI (non-ST elevated myocardial infarction) (CMS/HCC) [I21.4] Hypertensive urgency [I16.0] Adenoma of left adrenal gland [D35.02] Resistant hypertension [I1A.0] Atherosclerosis of red devil coronary artery of red devil heart without angina pectoris [I25.10] Coronary artery disease involving red devil coronary artery of red devil heart with unstable angina pectoris (CMS/HCC) [I25.110] Type 2 diabetes mellitus without complication, without long-term current use of insulin ([facility]) [E11.9] Hospital course: 59yoF with CAD s/p LAD SARKIS 11 days ago who was admitted to [facility] on 07/11 for chest pain. patient initially presented to [facility] for uncomfortable feeling in her chest and was found to have elevated troponins and new ischemic changes on EKG. Infusion and cardiology was consulted transferred to [facility] for further evaluation. Initially the patient had blood pressures up to 192/65 for which home medications were restarted. Troponins at [facility] were negative and there were no EKG changes concerning for ischemia. Echo was performed which showed EF 70 to 75%. she was cleared from cardiology for discharge and had resolved. Surgical, Invasive or Diagnostic Procedures Done During Admission: None Consultations During Admission: Cardiology Dear Dr. Lidia MD, [facility] is advised to follow up with [...] Center 07/18/2024 8:20 AM Feng Christie MD [facility] ENDOCR [facility] 07/20/2024 1:00 PM Richa Viramontes MD [facility] ONC [facility] 09/05/2024 1:00 PM Bijan Mitchell MD [facility] [place] [facility] Your medication list START taking [...] Your Medications These medications were sent to [facility]/pharmacy #[id number] [place], [place] - [address] [facility] [address] [facility] [address] isosorbide mononitrate ER 60 mg 24 hr [...] activity In process (more content not included)... [facility] 07-11-2024 Note 07/11/24 1817 Financial Resource [...] place to sleep or slept in a fdc (including now)? N Transportation Needs In the [...] than 3 How often do you attend evangelical or islam services? Never Do you belong to any clubs or organizations such as evangelical groups, unions, fraternal or athletic groups, or [...] off services in your home? 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 Referral Reason Psychosocial assessment Patient Information Primary Caregiver Self Accompanied by/Relationship Daughter (Rosita); Tdstubwf-wl-ocw (Yesy) Activities of Daily Living Assistive Device Not applicable Living Arrangement (Current/Prior to Hospitalization) Private residence (Lives at home by herself) Ambulation Independent Dressing Independent Feeding Independent Behavior Oriented (A&Ox4) Communication Can write;Talks;Understands speaking;Understands Pashto;Reads Income Information Income Source Unemployed (receives survivor benefits) Discharge Planning Support Systems Children;Family members (daughter, xxqitwtw-ng-nud, son) Type of Residence Private residence Will patient need Precert for Post Acute needs? No Patient's goal for discharge Home Does the patient need discharge transport arranged? No Completed social work assessment and SDoH screening. Patient was A&Ox4 at this time. Patient's daughter, Rosita, and patient's etrxzpjk-sj-voj, Yesy, were currently present at bedside. Patient reported that she lives at home by herself and she identified her support system as her daughter, Rosita, her ijmisjgq-jc-tzl, Yesy, and her son, Elie. Patient endorsed [...] any alcohol consumption or recreational drug use. [facility] 07-11-2024 Note Hospital Medicine History and Physical 07/11/2024 12:19 PM THE HOSPITALIST TEAM PREFERS TO USE [employer] CHAT FOR COMMUNICATION 7AM-7PM. IF I DO NOT RESPOND WITHIN 15 MINUTES, PLEASE PAGE ME/CALL THROUGH THE CABLE ARMORER OPERATOR. FROM 7PM-7AM, PLEASE PAGE [phone](COVR) Chief Complaint Chief Complaint Patient presents with [...] s/p stent placement 11 days ago at [facility] presented to ER as a transfer from [facility] for NSTEMI. Patient states that last night [...] Noted Hypokalemia 07/11/2024 Coronary artery disease involving red devil coronary artery of red devil heart with unstable angina pectoris ([facility]) 07/11/2024 Anxiety 06/30/2024 Type 2 diabetes mellitus without complication, without long-term current use of insulin ([facility]) 06/30/2024 Chest pain 06/30/2024 Elevated troponin 06/30/2024 Hypertensive urgency 06/30/2024 Hypomagnesemia 06/30/2024 QURESHI (dyspnea on exertion) 05/26/2024 Atherosclerosis of red devil coronary artery of red devil heart without angina pectoris 05/26/2024 Hyperlipidemia 05/26/2024 Murmur, heart 05/26/2024 Sepsis ([facility]) 07/14/2019 BV (bacterial vaginosis) 10/18/2017 GERD (gastroesophageal reflux disease) 10/18/2017 Essential hypertension 10/18/2017 TIA (transient ischemic attack) 10/18/2017 NSTEMI (non-ST elevated myocardial infarction) ([facility]) 06/29/2024 Assessment and Plan NSTEMI [...] for GI prophylaxis (more content not included)... [facility] 07-10-2024 Note [place] [facility] Note Reason for cardiology [...] Take 1 tablet (more content not included)... [facility] 07-01-2024 Note Hospital Medicine Discharge Summary [...] hypertension, IBS presents a direct mission from [facility] with a chief complaint of chest pain. [...] seen on her EKG. She went to [facility] for the symptoms. Labs were completed showing [...] on a heparin drip and transferred to [facility] for likely cardiac cath. # NSTEMI s/p [...] - Continue metformin. Dear Dr. Lidia MD, [facility] is advised to follow up with [...] Your Medications These medications were sent to [facility]/pharmacy #[id number] [address] carvedilol 25 mg tablet cloNIDine 0.1 mg [...] days Lab Units (more content not included)... [facility] 07-01-2024 Note [facility] CARDIOLOGY INPAT IENT PROGRESS NOTE Reason for follow up: NSTEMI Subjective Aby Madrigal, a 59 y.o. female patient, is transferred from [facility] for continuity of care. Patient reports that 3 days ago, she woke up in the mid of the night with indigestion, and a feeling fullness, but no pressure like chest pain. She presented to [facility], where she was found to be [...] 0.56 06/29/2024 E (more content not included)... [facility] 06-30-2024 Note Patient: Aby antony Procedure Information Date/Time: 06/30/24 1600 Procedure: Coronary angiography (Bilateral) Location: [facility] [address] / [facility] VASCULAR LAB (Cath) Providers: rBunilda Cuellar MD Clinical information reviewed: Allergies Meds [...] Plan discussed with attending. 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 [facility] 06-30-2024 Note 06/30/24 1431 Admission Assessment [...] Not Interested Does the patient have a classification case manager assigned to them through their [...] to send link and activate MyChart? No [facility] 06-30-2024 Note Case was discussed w ith the SALVADOR on 06/29/2024. I agree with the history, physical, assessment, and plan of care. I discussed the findings and therapeutic plan. I agree with the documentation, except for any updates below. Maurice Nogueira MD [facility] 06-30-2024 Note Hospital Medicine History and Physical 06/30/2024 1:15 AM THE HOSPITALIST TEAM PREFERS TO USE [employer] CHAT FOR COMMUNICATION 7AM-7PM. IF I DO NOT RESPOND WITHIN 15 MINUTES, PLEASE PAGE ME/CALL THROUGH THE CABLE ARMORER OPERATOR. FROM 7PM-7AM, PLEASE PAGE [phone](COVR) Chief Complaint Direct admission from [facility] with CP History of Present Illness Aby Madrigal is an 59 y.o. female who came from home with past medical history of anxiety, DM2, hypertension, IBS presents a direct mission from [facility] with a chief complaint of chest pain. [...] seen on her EKG. She went to [facility] for the symptoms. Labs were completed showing [...] on a heparin drip and transferred to [facility] for likely cardiac cath. Review of System [...] complication, without long-term current use of insulin ([facility]) 06/30/2024 Chest pain 06/30/2024 Elevated troponin 06/30/2024 Hypertensive urgency 06/30/2024 QURESHI (dyspnea on exertion) 05/26/2024 Atherosclerosis of red devil coronary artery of red devil heart without angina pectoris 05/26/2024 Hyperlipidemia 05/26/2024 Murmur, heart 05/26/2024 Sepsis ([facility]) 07/14/2019 BV (bacterial vaginosis) 10/18/2017 GERD (gastroesophageal reflux disease) 10/18/2017 Essential hypertension 10/18/2017 TIA (transient ischemic attack) 10/18/2017 Assessment and Plan Aby Madrigal is an 59 y.o. female who came from home with past medical history of anxiety, DM2, hypertension, IBS presents a direct mission from [facility] with a chief complaint of chest pain. #Chest pain #Elevated troponin Troponin 0.1, will continue to trend -Patient continues to have mild chest discomfort upon arrival -Continue heparin drip -CXR negative for acute process at OSH -EKG showing normal sinus rhythm -N.p.o. for possible right and left cardiac cath in a.m. -Patient with new diastolic dysfunction on echoc (more content not included)... [facility] 06-21-2024 Note [place] [facility] - [facility] Subjective Aby Madrigal is a 59 y.o. year old female patient being seen for follow up [facility] ED per Dr. Murillo. She [...] attack) QURESHI (dyspnea on exertion) Atherosclerosis of red devil coronary artery of red devil heart without angina pectoris Hyperlipidemia Murmur, heart [...] Judgment: Judgment no (more content not included)... [facility] 05-26-2024 Note [place] [facility] Note Reason for cardiology [...] PSYCH: appropriate mood, (more content not included)... [facility] 11-25-2022 Note OPERATIVE NOTE OPERATION DATE: [...] 10 years. CC: Kendra Murillo M.D. [facility] 10-11-2022 Note Chief Complaint consultation for colonoscopy [...] 1 tab(s), Oral, (more content not included)... [facility] Comment on above: Result Comment: Elec tronically Signed By: DIPESH BUCKNER, Umm Valente.germania\Date and Time Signed: 10/11/22 11:01 EST Evaluation + Plan note No data available for this section General Surgery [place] [facility] Discharge instructions No data available for [...] section and content) DATE CREATED AUTHOR 12/17/2021 [facility] DATE CREATED AUTHOR AUTHOR'S ORGANIZ ATION 12/16/2022 [facility] DATE CREATED AUTHOR AUTHOR'S ORGANIZ ATION 03/26/2023 [facility] DATE CREATED AUTHOR AUTHOR'S ORGANIZ ATION 07/24/2024 [facility] Patient Care team informatio n (unrecognized section and content) Personnel Name: Kendra Murillo MD Address: Address: [address] [place] [address] Personnel Name: Kendra Murillo MD Address: Address: [address] [place] [address] FOR RECORDS PERTAINING TO PATIENTS WHO ARE [...] BE BASED ON THE PRIMARY CLINICAL RECORDS. [employer] [facility]. provides no warranty or guarantee of the accuracy or completeness of information in this document.
[2024-07-31] MEDS: LORAZEPAM 1 MG TABLET PO (21:36)
[2024-07-31] MEDS: QUETIAPINE FUMARATE 25 MG TABLET 50 MG PO (21:36)
[2024-07-31] MEDS: HYDRALAZINE HCL 50 MG TABLET PO (21:36)
[2024-07-31] MEDS: CARVEDILOL 25 MG TABLET PO (21:36)
[2024-08-01] VITALS (9 sets, daily range): BP systolic 115–135; BP diastolic 57–68; PULSE 67–87; TEMP 36.5–36.6; O2SAT 95–98
[2024-08-01 01:28] LABS: Troponin I High Sensitivity 13.2 pg/mL (4.0-51.3)
[2024-08-01] MEDS: CARVEDILOL 25 MG TABLET PO (05:33)
[2024-08-01] MEDS: OMEPRAZOLE 40 MG CAPSULE.DR PO (05:33)
--- NOTE | 2024-08-01 06:20 | P.HP_ITS ---
HPI H&P: HPI History of Present Illness Chief complaint: Chest Pain Narrative: Patient presented to the emergency room with chest pain. Pressure type like before when she had her previous stents placed. Given nitroglycerin without significant effect, morphine did seem to help. Patient was observed overnight for rule out myocardial ischemia. I saw patient up on the medical surgical floor, she was resting comfortably in bed, no complaints, denies chest pain or shortness of breath. Opioid HPI Opioid Management Most Recent Pain and Opioid Data: Last Pain Scale 3 07/31/24 19:05 Last Pain Assessment 08/01/24 06:00 Last ED Pain Assessment 07/31/24 19:05 Last MAR Pain Assessment 07/31/24 18:35 Last ORT Total Score 1 07/31/24 20:05 Last ORT Risk Category Low Risk 07/31/24 20:05 Review of Systems ROS Status of ROS 10 or more systems reviewed and unremark able except as noted in history and below PFSH PFSH Medical History CAD (coronary artery disease) ?I25.10 - Atherosclerotic heart disease of sitka coronary artery without angina pectoris (ICD-10) Hypertensive urgency ?I16.0 - Hypertensive urgency (ICD-10) HTN (hypertension) ?I10 - Essential (primary) hypertension (ICD-10) Hypertensive urgency ?I16.0 - Hypertensive urgency (ICD-10) Chest pain ?R07.9 - Chest pain, unspecified (ICD-10) Anxiety ?F41.9 - Anxiety disorder, unspecified (ICD-10) HTN (hypertension) ?I10 - Essential (primary) hypertension (ICD-10) Hypokalemia ?E87.6 - Hypokalemia (ICD-10) Hypertension, uncontrolled ?I10 - Essential (primary) hypertension (ICD-10) Chest pain ?R07.9 - Chest pain, unspecified (ICD-10) NSTEMI (non-ST elevated myocardial infarction) ?I21.4 - Non-ST elevation (NSTEMI) myocardial infarction (ICD-10) Shortness of breath ?R06.02 - Shortness of breath (ICD-10) Headache ?R51.9 - Headache, unspecified (ICD-10) Elevated d-dimer ?R79.89 - Other specified abnormal findings of blood chemistry (ICD-10) Hypertensive emergency ?I16.1 - Hypertensive emergency (ICD-10) Uncontrolled hypertension ?I10 - Essential (primary) hypertension (ICD-10) Irritable bowel syndrome ?K58.9 - Irritable bowel syndrome without diarrhea (ICD-10) H/O nephrolithotomy with removal of calculi ?Z98.890 - Other specified postprocedural states (ICD-10) ?Z87.442 - Personal history of urinary calculi (ICD-10) Kidney stone ?N20.0 - Calculus of kidney (ICD-10) Sepsis ?A41.9 - Sepsis, unspecified organism (ICD-10) H/O angiography ?Z92.89 - Personal history of other medical treatment (ICD-10) Lung nodule ?R91.1 - Solitary pulmonary nodule (ICD-10) Anxiety ?F41.9 - Anxiety disorder, unspecified (ICD-10) HTN (hypertension) ?I10 - Essential (primary) hypertension (ICD-10) Diabetes ?E11.9 - Type 2 diabetes mellitus without complications (ICD-10) TIA (transient ischemic attack) ?G45.9 - Transient cerebral ischemic attack, unspecified (ICD-10) Surgical History H/O heart artery stent ?Z95.5 - Presence of coronary angioplasty implant and graft (ICD-10) History of appendectomy ?Z90.49 - Acquired absence of other specified parts of digestive tract (ICD- 10) H/O tubal ligation ?Z98.51 - Tubal ligation status (ICD-10) History of cholecystectomy ?Z90.49 - Acquired absence of other specified parts of digestive tract (ICD- 10) Family History (Updated 04/22/24 @ 01:15 by Stalin Kevin) Mother Family history of cancer Father MVA (motor vehicle accident) Brother Family history of stroke Social History (Updated 04/22/24 @ 01:26 by Stalin Kevin) Within the past year, how often did you have a drink containing alcohol: never Within the past year, how often did you have six or more drinks on one occasion: never Score interpretation: A score less than 3 is consistent with normal alcohol consumption. Smoking status: Former smoker Second hand tobacco smoke exposure: No Non-prescribed substance use: denies use Previous occupational history: no Known occupational exposures/hazards: No Highest level of school completed/degree received: high school graduate Do you want help with school or training: No Are you now , , , , never or living with a partner: In a typical week, how many times do you talk on the telephone with family, friends, or neighbors: 3 or more times per week How often do you get together with friends or relatives: 3 or more times per week How often do you attend mu-ism or hinduism services: never Do you belong to any clubs or organizations such as mu-ism groups unions, [employer] or athletic groups, or school groups: no Total score: 1 Score interpretation: A score of less than or equal to 1 indicates the most socially isolated. Little interest or pleasure in doing things: not at all Feeling down, depressed, or hopeless: not at all Feel stressed/tense/nervous/anxious/difficulty sleeping: not at all Do you think of yourself as: straight/heterosexual Gender Identity: female Meds Home Medications and Allergies Home Medications ?Medication ?Instructions ?Recorded ?Confirmed ?Type metformin 500 mg tablet 500 mg PO BID 04/21/24 07/31/24 History aspirin 81 mg capsule 81 mg PO DAILY 04/22/24 07/31/24 History clopidogrel 75 mg tablet 75 mg PO DAILY 07/01/24 07/31/24 History pantoprazole 40 mg tablet,delayed 40 mg PO .ACB 07/20/24 07/31/24 History release (Protonix) sennosides 8.6 mg-docusate sodium 1 tab-cap PO DAILY PRN constipation 07/20/24 07/28/24 History 50 mg tablet (Colace 2-In-1) losartan 100 mg tablet 100 mg PO DAILY 07/24/24 07/28/24 History quetiapine 100 mg tablet (Seroquel) 50 mg PO .QHS 07/24/24 07/31/24 History rosuvastatin 40 mg tablet 40 mg PO DAILY 07/24/24 07/31/24 History canagliflozin 100 mg tablet 100 mg PO QD #30 tabs 07/27/24 07/31/24 Rx (Invokana) carvedilol 25 mg tablet 25 mg PO TID #90 tabs 07/27/24 07/31/24 Rx hydralazine 50 mg tablet 50 mg PO TID #90 tabs 07/27/24 07/31/24 Rx hydrochlorothiazide 25 mg tablet 25 mg PO QD #30 tabs 07/27/24 07/28/24 Rx isosorbide mononitrate 60 mg 60 mg PO DAILY 07/31/24 07/31/24 History tablet,extended release 24 hr lorazepam 1 mg tablet (Ativan) 1 mg PO Q6H PRN anxiety 07/31/24 07/31/24 History Allergies Allergy/AdvReac Type Severity Reaction Status Date / Time amlodipine Allergy Mild Headache Verified 07/20/24 16:34 alprazolam [From Xanax] AdvReac Severe Watery Eye Verified 07/20/24 16:34 Exam Constitutional Vital Signs, click to edit/add: Last Vital Signs Temp 98 F 08/01/24 04:00 Pulse 77 08/01/24 06:00 Resp 18 08/01/24 04:00 BP 115/57 08/01/24 05:33 Pulse Ox 98 08/01/24 04:00 O2 Del Method Nasal Cannula 08/01/24 04:00 O2 Flow Rate 2 08/01/24 04:00 Documenting provider has reviewed patient's vital signs: yes Common normals: no apparent distress Respiratory Common normals: normal respiratory effort Cardio Common normals: regular rate, regular rhythm and no murmurs GI Common normals: Normal to inspection, nondistended, normoactive bowel sounds present, soft to palpation and non-tender Extremity Common normals: normal to inspection, full ROM and no pedal edema Results Labs Labs: Short CBC 07/31/24 Range/Units 17:03 WBC 8.3 (4.0-11.0) 10^3/uL Hgb 12.0 (12.0-16.0) g/dL Hct 36.4 (36.0-48.0) % Plt Count 246 (150-450) 10^3/uL BMP 07/31/24 17:03 Sodium 139 Potassium 3.5 Chloride 103 Carbon Dioxide 24.9 BUN 22.0 H Creatinine 1.59 H Glucose 195 H Calcium 8.8 Assessment and Plan Assessment and Plan (1) Chest pain: Plan Admission findings: Mildly elevated blood pressure, improved from previous, but chest pain consistent with previous episode that required cardiac stenting. Chest pain in a patient with known coronary artery disease secondary to hypercholesterolemia status post recent cardiac stenting: Resolved at this point. Troponins were negative. At this point if patient is ambulating without chest pain she will be discharged to home in improving condition. Medications see list. Follow-up with me in the office in 3 days. Uncontrolled hypertension-improved from previous but still elevated on admission, much improved this morning. Continue with current treatment plan NIDDM-insulin sliding scale while here, monitor sugars at home, continue with current medications General: Anxiety disorder-continue with home medications Admission status: Patient mated to rule out myocardial ischemia, troponins are negative, chest pain resolved, medically necessary treatment will span 1 midnight. Observation status
[2024-08-01 06:26] LABS: Basophils Percent Auto 0.6 % (0.2-2.0); Eosinophils Absolute Auto 0.1 10^3/uL (0.0-0.7); Eosinophils Percent Auto 1.7 % (0.9-7.0); Hematocrit 34.6 % (36.0-48.0); Hemoglobin 11.1 g/dL (12.0-16.0); Immature Granulocytes Abs Auto 0.02 10^3/uL (0.00-0.03); Immature Granulocytes Pct Auto 0.3 % (0.0-0.5); Lymphocytes Absolute Auto 1.9 10^3/uL (1.2-3.8); Lymphocytes Percent Auto 27.9 % (20.5-60.0); Mean Corpuscular HGB Conc 32.1 g/dL (29.9-35.2); Mean Corpuscular Hemoglobin 27.5 pg (26.7-34.0); Mean Corpuscular Volume 85.6 fL (81.0-99.0); Mean Platelet Volume 10.3 fL (9.5-13.5); Monocytes Absolute Auto 0.6 10^3/uL (0.3-0.8); Monocytes Percent Auto 8.6 % (1.7-12.0); Neutrophils Percent Auto 60.9 % (43.0-75.0); Platelet Count 210 10^3/uL (150-450); Red Blood Count 4.04 10^6/uL (4.20-5.40); Red Cell Distribution Width 14.6 % (11.0-15.0); White Blood Count 6.6 10^3/uL (4.0-11.0)
[2024-08-01 07:01] LABS: Alanine Aminotransferase 59 U/L (14-59); Albumin Level 3.2 g/dL (3.4-5.0); Alkaline Phosphatase 73 U/L (46-116); Anion Gap 9.2; Aspartate Amino Transferase 33 U/L (15-37); BUN Creatinine Ratio 13.6; Bilirubin Total 0.5 mg/dL (0.2-1.0); Calcium 8.4 mg/dL (8.5-10.1); Carbon Dioxide 29.2 mmol/L (21.0-32.0); Chloride 104 mmol/L (98-107); Estimated GFR (African America 50 (>=60); Estimated GFR (Non-African Ame 41 (>=60); Globulin 3.3 g/dL; Glucose 94 mg/dL (74-106); Phosphorus 2.7 mg/dL (2.6-4.7); Potassium 3.4 mmol/L (3.5-5.1); Sodium 139 mmol/L (136-145); Total Protein 6.5 g/dL (6.4-8.2)
[2024-08-01 07:24] LABS: Troponin I High Sensitivity 14.3 pg/mL (4.0-51.3)
--- NOTE | 2024-08-01 07:27 | P.DS_ITS ---
DS: Providers Provider Date of admission: 07/31/24 19:38 Primary care physician: Carlito Murillo MD DS: Diagnosis Discharge Diagnosis (1) Chest pain: Plan Admission findings: Mildly elevated blood pressure, improved from previous, but chest pain consistent with previous episode that required cardiac stenting. Chest pain in a patient with known coronary artery disease secondary to hypercholesterolemia status post recent cardiac stenting: Resolved at this point. Troponins were negative. Resolved with time of discharge Uncontrolled hypertension-improved at the time of discharge NIDDM-stable at the time of discharge General: Stable at the time of discharge Admission status: Patient mated to rule out myocardial ischemia, troponins are n egative, chest pain resolved, medically necessary treatment will span 1 midnight. Observation status DS: Summary Hospital Course Hospital Course: Patient was admitted from the emergency room with an episode of chest pain that similar to her previous that required cardiac stenting. Troponins were negative. At this point she feels back to her baseline. The plan is to have her ambulate in the halls, if no issues and or recurrence of the chest pain, she will be discharged to home in improving condition. Medications see list. Follow-up with me in the office in 3 days. Status at Discharge Overall status at discharge: patient is back to baseline Time Spent with Patient Time attestation: Total time spent providing and/or coordinating discharge services: Time spent: greater than 30 minutes Exam Constitutional Vital Signs, click to edit/add: Last Vital Signs Temp 98 F 08/01/24 04:00 Pulse 77 08/01/24 06:00 Resp 18 08/01/24 04:00 BP 115/57 08/01/24 05:33 Pulse Ox 98 08/01/24 04:00 O2 Del Method Nasal Cannula 08/01/24 04:00 O2 Flow Rate 2 08/01/24 04:00 Documenting provider has reviewed patient's vital signs: yes Common normals: no apparent distress Respiratory Common normals: normal respiratory effort Cardio Common normals: regular rate, regular rhythm and no murmurs GI Common normals: Normal to inspection, nondistended, normoactive bowel sounds present, soft to palpation and non-tender Extremity Common normals: normal to inspection, full ROM and no pedal edema DS: Data Data Completed and Pending Labs on day of discharge: Labs from last 24 hours 08/01/24 08/01/24 07/31/24 06:04 00:37 17:57 WBC 6.6 RBC 4.04 L Hgb 11.1 L Hct 34.6 L MCV 85.6 MCH 27.5 MCHC 32.1 RDW 14.6 Plt Count 210 MPV 10.3 Neut % (Auto) 60.9 Lymph % (Auto) 27.9 Bennett % (Auto) 8.6 Eos % (Auto) 1.7 Baso % (Auto) 0.6 Neut # (Auto) 4.0 Lymph # (Auto) 1.9 Bennett # (Auto) 0.6 Eos # (Auto) 0.1 Baso # (Auto) 0.0 Abs Immat Gran (auto) 0.02 Imm/Tot Granulo (auto) 0.3 Sodium 139 Potassium 3.4 L Chloride 104 Carbon Dioxide 29.2 Anion Gap 9.2 BUN 18.0 Creatinine 1.32 H Est GFR ( Amer) 50 L Est GFR (Non-Af Amer) 41 L BUN/Creatinine Ratio 13.6 Glucose 94 Calcium 8.4 L Phosphorus 2.7 Magnesium 2.0 Total Bilirubin 0.5 AST 33 ALT 59 Alkaline Phosphatase 73 Troponin I High Sens 14.3 13.2 10.6 Total Protein 6.5 Albumin 3.2 L Globulin 3.3 Albumin/Globulin Ratio 1.0 07/31/24 17:03 WBC 8.3 RBC 4.41 Hgb 12.0 Hct 36.4 MCV 82.5 MCH 27.2 MCHC 33.0 RDW 14.5 Plt Count 246 MPV 10.3 Neut % (Auto) 69.8 Lymph % (Auto) 21.3 Bennett % (Auto) 6.7 Eos % (Auto) 1.5 Baso % (Auto) 0.5 Neut # (Auto) 5.8 Lymph # (Auto) 1.8 Bennett # (Auto) 0.6 Eos # (Auto) 0.1 Baso # (Auto) 0.0 Abs Immat Gran (auto) 0.02 Imm/Tot Granulo (auto) 0.2 Sodium 139 Potassium 3.5 Chloride 103 Carbon Dioxide 24.9 Anion Gap 14.6 BUN 22.0 H Creatinine 1.59 H Est GFR ( Amer) 40 L Est GFR (Non-Af Amer) 33 L BUN/Creatinine Ratio 13.8 Glucose 195 H Calcium 8.8 Phosphorus Magnesium Total Bilirubin AST ALT Alkaline Phosphatase Troponin I High Sens 11.1 Total Protein Albumin Globulin Albumin/Globulin Ratio Discharge Plan Discharge Disposition: Home, Self-Care Condition: Good Discharge Medications: Continued metformin 500 mg tablet 500 mg PO BID aspirin 81 mg capsule 81 mg PO DAILY sennosides-docusate sodium [Colace 2-In-1] 8.6-50 mg tablet 1 tab-cap PO DAILY PRN (Reason: constipation) pantoprazole [Protonix] 40 mg tablet,delayed release (DR/EC) 40 mg PO .ACB losartan 100 mg tablet 100 mg PO DAILY rosuvastatin 40 mg tablet 40 mg PO DAILY quetiapine [Seroquel] 100 mg tablet 50 mg PO .QHS Rx Instructions: AT HS carvedilol 25 mg Tablet 25 mg PO TID Qty: 90 11RF hydrochlorothiazide 25 mg Tablet 25 mg PO QD Qty: 30 11RF Invokana 100 mg Tablet 100 mg PO QD Qty: 30 11RF hydralazine 50 mg tablet 50 mg PO TID Qty: 90 11RF isosorbide mononitrate 60 mg Tablet Extended Release 24 Hr 60 mg PO DAILY lorazepam [Ativan] 1 mg tablet 1 mg PO Q6H PRN (Reason: anxiety) Rx Instructions: 0.5 MG 1-2 TABS clopidogrel 75 mg tablet 75 mg PO DAILY Print Language: Yi Forms: Portal Instructions
[2024-08-01] MEDS: CLOPIDOGREL BISULFATE 75 MG TABLET PO (08:11)
[2024-08-01] MEDS: ISOSORBIDE MONONITRATE 60 MG TAB.ER.24H PO (08:11)
[2024-08-01] MEDS: ASPIRIN 81 MG TAB.CHEW PO (08:11)
[2024-08-01] MEDS: LORAZEPAM 1 MG TABLET PO (10:20)
--- NOTE | 2024-08-01 11:33 | SWNOTE1 ---
SW was not able to see pt, pt was discharged prior to SW seeing pt.
--- NOTE | 2024-08-02 15:11 | CM.DCFOLLOWU ---
Person spoke with: Aby How are you feeling? Good How is your pain? No pain Did you understand your discharge instructions? Yes Do you have any questions about your discharge instructions? No Were you given any prescriptions at discharge? No Were you able to get your prescriptions filled? N/A Do you understand how to take your medications as ordered? Yes Do you have any questions about your follow up appointment and do you plan to keep your follow up appointment? No its scheduled and I plan to go Is there anything else that you would like to discuss? No Questions/Comments/Concerns/Other:
== END 2024-08-01 10:48 | disposition home or self-care (01) ==
LOC: ER 19:03 → MS 19:45
PROVIDERS: Registered Nurse; Admitting Provider Family Medicine; Emergency Provider Emergency Medicine; PCP Family Medicine; Visit Provider Family Medicine
DX: R07.9 Chest pain, unspecified (principal); I10 Essential (primary) hypertension; E78.00 Pure hypercholesterolemia, unspecified; I25.10 Atherosclerotic heart disease of native coronary artery without angina pectoris; F41.9 Anxiety disorder, unspecified; E11.9 Type 2 diabetes mellitus without complications; Z79.84 Long term (current) use of oral hypoglycemic drugs; Z95.5 Presence of coronary angioplasty implant and graft; Z87.891 Personal history of nicotine dependence
CPT/HCPCS: 36415; 71045; 80048; 80053; 83735; 84100; 84484; 85025; 93005; 94761; 96374; 99285; G0378; J2270

== ENCOUNTER 2024-08-17 15:49 | Emergency (ER) | payer MEDICAID, SELFPAY ==
[2024-08-17 15:58] VITALS: BP 147/67; PULSE 87; TEMP 37.2; O2SAT 95; BMI 35.6
--- OUTSIDE RECORDS SUMMARY | 2024-08-17 16:03 | XMS_ITS | CCD ---
Author Organization [facility] Care Team Providers Care General Manager Farm Name Role Phone Kendra Moran Primary Care Physician [phone] Umm LANDON Attending Unavailable NILL, Umm Michael Attending Unavailable [...] VIMAL, DR ADELIA Medrano Consulting Unavailable HERMINIA JULIAN Attending Unavailable KENDRA MORAN Referring Unavailable HORANI, NONA Attending Unavailable HORANI, NONA Admitting Unavailable BIJAN LICEA Attending Unavailable HORANI, NONA Referring Unavailable HORANI, NONA Referring Unavailable HORANI, NONA Referring Unavailable HORANI, NONA Referring Unavailable MESERET MAC Referring Unavailable FENG CHRISTIE Attending Unavailable MOUKARBEL, GOMEZ Attending Unavailable BIJAN LICEA Attending Unavailable RICHA VIRAMONTES Attending Unavailable RICHA VIRAMONTES Referring Unavailable PIRFELECIA ROBBINS Referring Unavailable FENG CHRISTIE Attending Unavailable FEDERICA ANDERSON Referring Unavailable JULIANHERMINIA MENDEZ Referring Unavailable FEDERICA ANDERSON Referring Unavailable HORRAMONA, NONA Referring Unavailable TAO NASSAR Attending Unavailable HORLARRY GREENEAR Admitting Unavailable JOSE BETANCUR Referring Unavailable Allergies Allergy Classification Reported Allergen(s) Allergy Type Date of Onset Reaction(s) Facility (1 source) No Known Medication Allergies; 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: [No Known Medication Allergies] Propensity to adverse reactions (disorder) [facility] Repository (1 source) ALPRAZolam; 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: [ALPRAZOLAM] Drug Allergy [address] [place] [address] Repository (1 source) amLODIPine; 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: [AMLODIPINE] Drug Allergy [address] [place] [address] Repository (1 source) Lisinopril; 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: [LISINOPRIL] Drug Allergy [address] [place] [address] Repository Medications Current Medications Medication Drug Class(es) [...] Coronary arteriosclerosis; 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: [Atherosclerotic heart disease of [place] coronary artery without angina pectoris] Onset: 3 [...] 11-26-2022 12-20-2019 Episodic Other aftercare (1 source) 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 Normal [facility] Letter (Out)on 08-09-2024 Letter (Out) [id number] Aby Madrigal 1965 F Date Provider Department Center 08/09/2024 None-None [facility] ADMIT None Family History Problem Relation Age of Onset Lung cancer Mother No Known Problems Father Lung cancer Sister Family Status - Relation Status Age at Mother Father Sister [facility] 36on 08-08-2024 36 Called patient over the phone at 9:17 AM - discussed recent lab results from [facility] (including M cortisol of 1.7 after dex, renin undetectable, aldosterone level 4.4) - ruled out autonomous cortisol production - she has stopped spironolactone for about 2 weeks now, continue to hold this until our next appt and we will reassess ARR. We will meet again on Oct 03 She thanked me for the call [facility] Orders Onlyon 08-08-2024 Orders Only [id number] Rohan,Aby S 1965 F Date Provider Department Center 08/08/2024 RICHA MERINO ONC DCC Family History Problem Relation Age of Onset Lung cancer Mother No Known Problems Father Lung cancer Sister Family Status - Relation Status Age at Mother Father Sister Normal [facility] Telephoneon 08-08-2024 Telephone [id number] Strababebe,Aby S 1965 F Date Provider Department Center 08/08/2024 [id number] BOW[facility] ENDOCR [facility] Family History Problem Relation Age of Onset Lung cancer Mother No Known Problems Father Lung cancer Sister Family Status - Relation Status Age at Mother Father Sister Normal [facility] Telemedicineon 07-20-2024 Telemedicine [id number] Emmababebe,Aby S 1965 F Date Provider Department Center 07/20/2024 RICHA MERINO ONC DCC Family History Problem Relation Age of Onset Lung cancer Mother No Known Problems Father Lung cancer Sister Family Status - Relation Status Age at Mother Father Sister Level of Service:03683 NM PHYS/QHP TELEPHONE EVALUATION 21-30 MIN (GC) Reason for Visit and Comments: 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. CT CHEST 04-21-24- PET 06-21-24 Films requested 07-18-24 HAVING HARD TIME GETTING FILMS FROM [facility] AGAIN. Ginny at [facility] ([phone] direct line) is working on sending them. CHECK [facility] FOR FILMS PLEASE [facility] 37on 07-18-2024 37 It was great [...] lab work done at one of these [facility] Lab Sites The results will then come straight to me I appreciate it [facility] [address], [place] Hours Wednesday - Wednesday 8 AM - 4PM (Closed 12 - 12:30 PM daily) Phone: [facility] [address] Hours: Wednesday - Wednesday 6 AM - 5 PM Saturday: 7 AM - 2 PM Phone: [address] [place] Hours: Wednesday 7 AM - 3:30 PM Phone: [facility] [address] Hours: Wednesday 7 AM - 5:30 PM Phone: [facility] [address] Hours: Wednesday 8 AM - 4:30 PM Phone: Normal [facility] EDNURSon 07-18-2024 EDNURS ADR and relevant inf o reported to [place] in pharmacy d/t safety net being down. Viet Kelly RN 07/18/24 4522 Normal [facility] EDNURS SENT FROM MD OFFICE RE: LOW BP; RECENT DC FROM [facility] FOR SAME Normal [facility] EDPROVon 07-18-2024 EDPROV HPI Chief Complaint Patient presents with Hypotension Initial assessment completed by Dr Julian at 0927. Aby Madrigal is a 59 [...] new meds yesterday. History provided by: Patient cytotechnologist used: No [place] Coma Scale Score: 15 Patient History Past [...] Basilia senior, documented on behalf of Dr. Julian. Chief complaint hypotension Differential Diagnosis includes but [...] mouth i (more content not included)... Normal [facility] Office Visiton 07-18-2024 Follow-up visit [id number] Aby Madrigal 1965 Date Provider Department Center 07/18/2024 [id number] [facility] Family History Problem Relation Age of Onset Lung cancer Mother No Known Problems Father Lung cancer Sister Family Status - Relation Status Age at Mother Father Sister Level of Service:21334 NM OFFICE/OUTPATIENT NEW MODERATE MDM 45 MINUTES Reason for Visit and Comments: Nodules [Other] Normal [facility] Follow-up visit [id number] Aby Madrigal 1965 Date Provider Department Center 07/18/2024 [id number] [facility] Family History Problem Relation Age of Onset Lung cancer Mother No Known Problems Father Lung cancer Sister Family Status - Relation Status Age at Mother Father Sister Level of Service:NOCHG 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 I am calling you to follow [...] No Patient Name Aby Madrigal Date 07/13/24 [facility] Telephoneon 07-13-2024 Telephone [id number] Aby Madrigal 1965 F Date Provider Department Center 07/13/2024 GINNY MALONEY [facility] Medical C Family History Problem Relation Age of Onset Lung cancer Mother No Known Problems Father Lung cancer Sister Family Status - Relation Status Age at Mother Father Sister Reason for Visit and Comments: Hospital Follow-up [832] Normal [facility] 30on 07-12-2024 30 The patient is Moderately [...] to address these barriers include . Normal [facility] ANTI-XA (HEPARIN LEVEL)on HEPARIN UNFRACTIONATED (U/ML) IN PPP BY CHROMOGENIC METHOD 0.60 IU/mL Normal 0.3-0.7 [facility] Comment on above: Order Comment: Check anti-Xa level every 6 hours while on heparin infusion, or per protocol. Result Comment: Radha roxaban and Apixaban will interfere with the anti Xa assay used to monitor UFH and LMWH. Performed By: #### L [id number] #### [facility] ([facility] [address] [place] [address] BASIC METABOLIC PANELon 08-2 Anion gap [Moles/Vol] 10 mmol/L Normal 7-20 [facility] Comment on above: Performed By: #### L [id number] #### [facility] ([facility]) [address] [place] [address] Calcium [Mass/Vol] 8.8 mg/dL Normal 8.6-10.3 [facility] Comment on above: Performed By: #### L [id number] #### [facility] ([facility]) [address] [place] [address] Chloride [Moles/Vol] 108 mmol/L High 98-107 [facility] Comment on above: Performed By: #### L [id number] #### [facility] ([facility]) [address] [place] [address] CO2 [Moles/Vol] 27 mmol/L Normal 21-31 [facility] Comment on above: Performed By: #### L [id number] #### [facility] ([facility]) [address] [place] [address] Creatinine [Mass/Vol] 0.89 mg/dL Normal 0.60-1.20 [facility] Comment on above: Performed By: #### L [id number] #### [facility] ([facility]) [address] [place] [address] GLOMERULAR FILTRATION RATE ML/MIN/1.73 SQ M.PREDICTED 74.2 mL/min/1.73m*2 Normal >60.0 [facility] Comment on above: Result Comment: The [facility]???s estimated glomerular filtration rate (eGFR) will no [...] group of individuals. Performed By: #### L [id number] #### [facility] ([facility]) [address] [place] [address] Glucose [Mass/Vol] 109 mg/dL High 70-100 [facility] Comment on above: Performed By: #### L [id number] #### [facility] ([facility] [address] [facility] [address] Potassium [Moles/Vol] 3.4 mmol/L Low 3.5-5.1 [facility] Comment on above: Performed By: #### L [id number] #### [facility] ([facility]) [address] [place] [address] Sodium [Moles/Vol] 142 mmol/L Normal 136-145 [facility] Comment on above: Performed By: #### L [id number] #### [facility] ([facility] [address] [place] [address] Urea nitrogen [Mass/Vol] 11 mg/dL Normal 7-25 [facility] Comment on above: Performed By: #### L [id number] #### [facility] ([facility]) [address] [place] [address] UREA NITROGEN/CREATININE (MASS RATIO) IN SER/PLAS 12.4 Normal [facility] Comment on above: Performed By: #### L [id number] #### [facility] ([facility]) [address] [facility] [place] [address] CBC WITH AUTO DIFFERENTIALon 07-12-2024 Basophils (Bld) [#/Vol] 0.04 10*3/uL Normal 0.00-0.20 [facility] Comment on above: Performed By: #### L [id number] #### [facility] [address] [place] [address] Basophils/100 WBC (Bld) 0.6 % Normal 0.0-1.0 [facility] Comment on above: Performed By: #### L [id number] #### [facility] [address] [place] [address] Eosinophils (Bld) [#/Vol] 0.22 10*3/uL Normal 0.00-0.50 [facility] Comment on above: Performed By: #### L [id number] #### [facility] [address] [place] [address] Eosinophils/100 WBC (Bld) 3.5 % Normal 0.0-6.0 [facility] Comment on above: Performed By: #### L [id number] #### [facility] ([facility]) [address] [place] [address] Erythrocyte distribution width (RBC) [Ratio] 14.5 % Normal 11.5-15.0 [facility] Comment on above: Performed By: #### L [id number] #### [facility] [address] [place] [address] ERYTHROCYTE MEAN CORPUSCULAR HEMOGLOBIN CONCENTRATION (G/DL) BY AUTOMATED 32.7 g/dL Normal 32.0-35.0 [facility] Comment on above: Performed By: #### L [id number] #### [facility] ([facility]) [address] [place] [address] Hematocrit (Bld) [Volume fraction] 34.2 % Low 36.0-48.0 [facility] Comment on above: Performed By: #### L [id number] #### [facility] ([facility]) [address] [place] [address] Hemoglobin (Bld) [Mass/Vol] 11.2 g/dL Low 12.0-15.0 [facility] Comment on above: Performed By: #### L [id number] #### [facility] [address] [place] [address] Immature granulocytes (Bld) [#/Vol] 0.01 10*3/uL Normal 0.00-0.20 [facility] Comment on above: Performed By: #### L [id number] #### [facility] ([facility]) [address] [place] [address] Immature granulocytes/100 WBC (Bld) 0.2 % Normal 0.0-1.0 [facility] Comment on above: Performed By: #### L [id number] #### [facility] ([facility]) [address] [place] [address] Lymphocytes (Bld) [#/Vol] 2.37 10*3/uL Normal 1.20-4.00 [facility] Comment on above: Performed By: #### L [id number] #### [facility] ([facility]) [address] [place] [address] Lymphocytes/100 WBC (Bld) 37.8 % Normal 20.0-45.0 [facility] Comment on above: Performed By: #### L [id number] #### [facility] ([facility]) [address] [place] [address] MCH (RBC) [Entitic mass] 27.4 pg Normal 27.0-33.0 [facility] Comment on above: Performed By: #### L [id number] #### [facility] [address] [place] [address] MCV (RBC) [Entitic vol] 83.6 fL Normal 82.0-98.0 [facility] Comment on above: Performed By: #### L [id number] #### [facility] ([facility]) [address] [place] [address] Monocytes (Bld) [#/Vol] 0.43 10*3/uL Normal 0.10-1.00 [facility] Comment on above: Performed By: #### L [id number] #### [facility] ([facility]) [address] [place] [address] Monocytes/100 WBC (Bld) 6.9 % Normal 5.0-12.0 [facility] Comment on above: Performed By: #### L [id number] #### [facility] ([facility]) [address] [place] [address] Neutrophils (Bld) [#/Vol] 3.20 10*3/uL Normal 1.60-7.60 [facility] Comment on above: Performed By: #### L [id number] #### [facility] ([facility]) [address] [place] [address] Neutrophils/100 WBC (Bld) 51.0 % Normal 40.0-72.0 [facility] Comment on above: Performed By: #### L [id number] #### [facility] ([facility]) [address] [place] [address] NRBC (PER 100 WBCS) BY AUTOMATED COUNT 0.0 % Normal 0 [facility] Comment on above: Performed By: #### L [id number] #### [facility] ([facility]) [address] [place] [address] PLATELETS (10*3/UL) IN BLOOD AUTOMATED COUNT 223 10*3/uL Normal 150-400 [facility] Comment on above: Performed By: #### L [id number] #### [facility] ([facility]) [address] [place] [address] RBC (Bld) [#/Vol] 4.09 10*6/uL Normal 3.80-5.00 [facility] Comment on above: Performed By: #### L [id number] #### [facility] ([facility]) [address] [place] [address] WBC (Bld) [#/Vol] 6.27 10*3/uL Normal 4.00-10.60 [facility] Comment on above: Performed By: #### L [id number] #### [facility] ([facility]) [address] [place] [address] MAGNESIUMon 07-12-2024 Magnesium [Mass/Vol] 1.7 mg/dL Low 1.9-2.7 [facility] Comment on above: Performed By: #### L [id number] #### [facility] ([facility]) [address] [place] [address] POCT GLUCOSE METER UNSOLICIT ED RESULTSon 07-12-2024 Glucose [Mass/Vol] 102 mg/dL Normal 70-105 [facility] Comment on above: Order Comment: Check anti-Xa level every 6 hours while on heparin infusion, or per protocol. Result Comment: brad [email or web address] Performed By: #### L [id number] #### [facility] ([facility]) [address] [place] [address] TROPONIN Ion 07-12-2024 Troponin I.cardiac [Mass/Vol] 0.01 ng/mL Normal 0.00-0.04 [facility] Comment on above: Performed By: #### L [id number] #### [facility] ([facility]) [address] [place] [address] 30on 07-11-2024 30 The patient is Moderately [...] and maintained or improved Outcome: Progressing Normal [facility] 30 The patient is Moderately Stable - Low risk of patient condition declining or worsening The patient's goals for the shift include no chest pain The clinical goals for the shift include stable vital/no chest pain Over the shift, the patient did not make progress toward the following goals. Barriers to progression include . Recommendations to address these barriers include . Normal [facility] ALDOSTERONEon 07-11-2024 ALDOSTERONE (NG/DL) IN SER/PLAS 4.9 ng/dL Normal [facility] Comment on above: Result Comment: INTE RPRETIVE [...] reference intervals for this test in the [employer] Laboratory Test Directory ([email or web address]). Performed By: [employer] [address] [place] [id number] Housekeeper Manager: Navneet Simeon MD, PhD CLIA Number: [id number] Performed By: #### L [id number] #### [facility] ([facility]) [address] [place] [address] ANTI-XA (HEPARIN LEVEL)on HEPARIN UNFRACTIONATED (U/ML) IN PPP BY CHROMOGENIC METHOD 0.42 IU/mL Normal 0.3-0.7 [facility] Comment on above: Order Comment: Check anti-Xa level every 6 hours while on heparin infusion, or per protocol. Result Comment: Radha roxaban and Apixaban will interfere with the anti Xa assay used to monitor UFH and LMWH. Performed By: #### L [id number] #### [facility] ([facility]) [address] [place] [address] HEPARIN UNFRACTIONATED (U/ML) IN PPP BY CHROMOGENIC METHOD 0.20 IU/mL Low 0.3-0.7 [facility] Comment on above: Order Comment: Check anti-Xa level every 6 hours while on heparin infusion, or per protocol. Result Comment: Radha roxaban and Apixaban will interfere with the anti Xa assay used to monitor UFH and LMWH. Performed By: #### L [id number] #### [facility] [address] [place] [address] APTTon 07-11-2024 ACTIVATED PARTIAL THROMBOPLASTIN TIME IN PPP BY COAGULATION ASSAY 43.0 Seconds High 25.0-35.0 [facility] Comment on above: Result Comment: Clin ical significance of the APTT is questionable in the presence of heparin. Performed By: #### L [id number] #### [facility] ([facility]) [address] [place] [address] BASIC METABOLIC PANELon 06-23 Anion gap [Moles/Vol] 9 mmol/L Normal 7-20 [facility] Comment on above: Performed By: #### L [id number] #### [facility] ([facility]) [address] [place] [address] Calcium [Mass/Vol] 8.8 mg/dL Normal 8.6-10.3 [facility] Comment on above: Performed By: #### L [id number] #### [facility] ([facility]) [address] [place] [address] Chloride [Moles/Vol] 108 mmol/L High 98-107 [facility] Comment on above: Performed By: #### L [id number] #### [facility] ([facility]) [address] [place] [address] CO2 [Moles/Vol] 28 mmol/L Normal 21-31 [facility] Comment on above: Performed By: #### L [id number] #### [facility] ([facility]) [address] [place] [address] Creatinine [Mass/Vol] 1.09 mg/dL Normal 0.60-1.20 [facility] Comment on above: Performed By: #### L [id number] #### [facility] ([facility]) [address] [place] [address] GLOMERULAR FILTRATION RATE ML/MIN/1.73 SQ M.PREDICTED 58.2 mL/min/1.73m*2 Low >60.0 [facility] Comment on above: Result Comment: The [facility]???s estimated glomerular filtration rate (eGFR) will no [...] group of individuals. Performed By: #### L [id number] #### [facility] ([facility]) [address] [place] [address] Glucose [Mass/Vol] 113 mg/dL High 70-100 [facility] Comment on above: Performed By: #### L [id number] #### [facility] ([facility]) [address] [place] [address] Potassium [Moles/Vol] 3.4 mmol/L Low 3.5-5.1 [facility] Comment on above: Performed By: #### L [id number] #### [facility] ([facility] [address] [place] [address] Sodium [Moles/Vol] 142 mmol/L Normal 136-145 [facility] Comment on above: Performed By: #### L [id number] #### [facility]) [address] [place] [address] Urea nitrogen [Mass/Vol] 14 mg/dL Normal 7-25 [facility] Comment on above: Performed By: #### L [id number] #### [facility] ([facility]) [address] [place] [address] UREA NITROGEN/CREATININE (MASS RATIO) IN SER/PLAS 12.8 Normal [facility] Comment on above: Performed By: #### L [id number] #### [facility] ([facility]) [address] [place] [address] CBC WITH AUTO DIFFERENTIALon 07-11-2024 Basophils (Bld) [#/Vol] 0.04 10*3/uL Normal 0.00-0.20 [facility] Comment on above: Performed By: #### L [id number] #### [facility] ([facility]) [address] [place] [address] Basophils/100 WBC (Bld) 0.6 % Normal 0.0-1.0 [facility] Comment on above: Performed By: #### L [id number] #### [facility] ([facility]) [address] [place] [address] Eosinophils (Bld) [#/Vol] 0.16 10*3/uL Normal 0.00-0.50 [facility] Comment on above: Performed By: #### L [id number] #### [facility] ([facility]) [address] [place] [address] Eosinophils/100 WBC (Bld) 2.2 % Normal 0.0-6.0 [facility] Comment on above: Performed By: #### L [id number] #### [facility] [address] [place] [address] Erythrocyte distribution width (RBC) [Ratio] 14.6 % Normal 11.5-15.0 [facility] Comment on above: Performed By: #### L [id number] #### [facility] ([facility]) [address] [place] [address] ERYTHROCYTE MEAN CORPUSCULAR HEMOGLOBIN CONCENTRATION (G/DL) BY AUTOMATED 32.0 g/dL Normal 32.0-35.0 [facility] Comment on above: Performed By: #### L [id number] #### [facility] ([facility]) [address] [place] [address] Hematocrit (Bld) [Volume fraction] 36.2 % Normal 36.0-48.0 [facility] Comment on above: Performed By: #### L [id number] #### [facility] ([facility]) [address] [place] [address] Hemoglobin (Bld) [Mass/Vol] 11.6 g/dL Low 12.0-15.0 [facility] Comment on above: Performed By: #### L [id number] #### [facility] [address] [facility] [address] Immature granulocytes (Bld) [#/Vol] 0.02 10*3/uL Normal 0.00-0.20 [facility] Comment on above: Performed By: #### L [id number] #### [facility] ([facility]) [address] [place] [address] Immature granulocytes/100 WBC (Bld) 0.3 % Normal 0.0-1.0 [facility] Comment on above: Performed By: #### L [id number] #### [facility] ([facility]) [address] [place] [address] Lymphocytes (Bld) [#/Vol] 2.34 10*3/uL Normal 1.20-4.00 [facility] Comment on above: Performed By: #### L [id number] #### [facility] ([facility]) [address] [place] [address] Lymphocytes/100 WBC (Bld) 32.6 % Normal 20.0-45.0 [facility] Comment on above: Performed By: #### L [id number] #### [facility] ([facility]) [address] [place] [address] MCH (RBC) [Entitic mass] 27.2 pg Normal 27.0-33.0 [facility] Comment on above: Performed By: #### L [id number] #### [facility] [address] [place] [address] MCV (RBC) [Entitic vol] 85.0 fL Normal 82.0-98.0 [facility] Comment on above: Performed By: #### L [id number] #### [facility] [address] [place] [address] Monocytes (Bld) [#/Vol] 0.49 10*3/uL Normal 0.10-1.00 [facility] Comment on above: Performed By: #### L [id number] #### [facility] ([facility]) [address] [place] [address] Monocytes/100 WBC (Bld) 6.8 % Normal 5.0-12.0 [facility] Comment on above: Performed By: #### L [id number] #### [facility] ([facility]) [address] [place] [address] Neutrophils (Bld) [#/Vol] 4.13 10*3/uL Normal 1.60-7.60 [facility] Comment on above: Performed By: #### L [id number] #### [facility] ([facility]) [address] [place] [address] Neutrophils/100 WBC (Bld) 57.5 % Normal 40.0-72.0 [facility] Comment on above: Performed By: #### L [id number] #### [facility] ([facility]) [address] [place] [address] NRBC (PER 100 WBCS) BY AUTOMATED COUNT 0.0 % Normal 0 [facility] Comment on above: Performed By: #### L [id number] #### [facility] ([facility]) [address] [place] [address] PLATELETS (10*3/UL) IN BLOOD AUTOMATED COUNT 245 10*3/uL Normal 150-400 [facility] Comment on above: Performed By: #### L [id number] #### [facility] ([facility]) [address] [place] [address] RBC (Bld) [#/Vol] 4.26 10*6/uL Normal 3.80-5.00 [facility] Comment on above: Performed By: #### L [id number] #### [facility] ([facility]) [address] [place] [address] WBC (Bld) [#/Vol] 7.18 10*3/uL Normal 4.00-10.60 [facility] Comment on above: Performed By: #### L [id number] #### [facility]) [address] [place] [address] CONSULTon 07-11-2024 CONSULT -- Attestation signed by [...] Brown is the endocrine surgeon in the [facility] that would be most appropriate and I [...] with plan for outpatient follow up with [facility] surgery and endocrinology Meseret Mac MD Cardiology Consult Note Reason for Consult: Chest pain HPI: Aby Madrigal is a 59 y.o. female patient is presenting as a transfer from [facility] for the evaluation of chest pain. [...] medical history of Abnormal ECG, Diabetes mellitus ([facility]/HCC), Hyperlipidemia, Hypertension, Obstructive sleep apnea, Panic attacks, and Stroke ([facility]). Surgical History She has a past surgical [...] 430 QTC (more content not included)... Normal [facility] EDPROVon 07-11-2024 EDPROV HPI Chief Complaint Patient [...] Pt states she was trasnfered here from [place] to be transferred to cardiology. Pt states she had a cardiac stent placed last week. She denies fever, coughing, vomiting, abdominal pain. She admits diarrhea. She felt better when given ativan and worse when she was given morphine. She has had her gallbladder removed. History provided by: Patient cytotechnologist used: No Chest Pain Associated symptoms: no abdominal pain, no cough, no fever and no vomiting [place] Coma Scale Score: 15 Patient History Past [...] signing this emergency patient record, the Emergency Physician/SHEET METAL ERECTOR/PA-C attests that all entries made into the electronic medical record by the scribe prior to the Physician/SHEET METAL ERECTOR/PA-C signature reflect an accurate accounting of the evaluation and care rendered by that Emergency Physician/SHEET METAL ERECTOR/PA-C. The Emergency Physician/SHEET METAL ERECTOR/PA-C assumes full responsibility for those entries. The Emergency Physician/SHEET METAL ERECTOR/PA-C also attests that any patient testing or treatment that was instituted by nursing staff. Normal [facility] EDPROV HPI Chief Complaint Patient presents with [...] Pt states she was trasnfered here from [place] to be transferred to cardiology. Pt states she had a cardiac stent placed last week. She denies fever, coughing, vomiting, abdominal pain. She admits diarrhea. She felt better when given ativan and worse when she was given morphine. She has had her gallbladder removed. History provided by: Patient cytotechnologist used: No Chest Pain Associated symptoms: no [...] MDM ED Course as of 07/11/24 1256 Tue Jul 11, 2024 1041 Cardiology consulted [AT] ED Course User Index [AT] Federica Anderson MD Diagnoses as of 07/11/24 1256 NSTEMI (non-ST elevated myocardial infarction) ([facility]) Medical Decision Making Amount and/or Complexity of Data Reviewed Labs: ordered. Decision-making details documented in ED Course. ECG/medicine tests: ordered and independent interpretation performed. Decision-making details documented in ED Course. Risk Drug therapy requiring intensive monitoring for toxicity. Decision regarding hospitalization. Minor surgery with identified risk factors. I, Basilia diallo (more content not included)... Invalid Interpretation Code [facility] POCT GLUCOSE METER UNSOLICIT ED RESULTSon 07-11-2024 Glucose [Mass/Vol] 122 mg/dL High 70-105 [facility] Comment on above: Order Comment: Waive d Testing in the ED is performed under the ED CLIA certificate #[id number]. Result Comment: [email or web address] Performed By: #### L [id number] #### [facility] ([facility]) [address] [place] [address] PROTIME-INRon 07-11-2024 INR IN PPP BY COAGULATION ASSAY 1.00 Normal 0.90-1.10 [facility] Comment on above: Result Comment: ACCC P [...] RANGE. CHEST 1995;108:[id number]. Performed By: #### L [id number] #### [facility] ([facility]) [address] [place] [address] PROTHROMBIN TIME (PT) IN PPP BY COAGULATION ASSAY 13.2 Seconds Normal 12.3-14.8 [facility] Comment on above: Performed By: #### L [id number] #### [facility] ([facility]) [address] [place] [address] RENIN ACTIVITYon 07-11-2024 RENIN ACTIVITY <0.1 Normal [facility] Comment on above: Result Comment: INTE RPRETIVE INFORMATION: Renin Activity Adult, Normal sodium diet: Supine ................. 0.2-1.6 ng/mL/hr Upright ................ 0.5-4.0 ng/mL/hr Children, Normal sodium diet, Supine: [place] (1-7 days) ..... 2.0-35.0 ng/mL/hr Cord blood [...] developed and its performance characteristics determined by [employer]. It has not been cleared or approved by the US Food and Drug Administration. This test was performed in a CLIA certified laboratory and is intended for clinical purposes. Performed By: [facility] [address] [place] [address] Housekeeper Manager: Navneet Simeon MD, PhD CLIA Number: [id number] Performed By: #### L [id number] #### [facility] ([facility]) [address] [place] [address] TROPONIN Ion 07-11-2024 Troponin I.cardiac [Mass/Vol] 0.01 ng/mL Normal 0.00-0.04 [facility] Comment on above: Performed By: #### L [id number] #### [facility] ([facility]) [address] [place] [address] Office Visiton 07-10-2024 Follow-up visit [id number] Aby Madrigal 1965 F Date Provider Department Center 07/10/2024 [id number]-OLPLAKBIJAN LICEA RIAZ [facility] Family History Problem Relation Age of Onset Lung cancer Mother No Known Problems Father Lung cancer Sister Family Status - Relation Status Age at Mother Father Sister Level of Service:01113 NM OFFICE/OUTPATIENT ESTABLISHED MOD MDM 30 MIN Reason for Visit and Comments: Coronary Artery Disease [187] Post-Cath [731] Normal [facility] 36on 07-03-2024 36 Post Discharge Call Good morning, I am Ginny Garcia, RN a lead nurse from [facility]. I am calling you to follow [...] Patient Name Aby Madrigal Date 07/03/24 Normal [facility] Telephoneon 07-03-2024 Telephone [id number] Aby Madrigal 1965 F Date Provider Department Center 07/03/2024 Adela-GINNY GARCIA [facility] Family History Problem Relation Age of Onset Lung cancer Mother No Known Problems Father Lung cancer Sister Family Status - Relation Status Age at Mother Father Sister Reason for Visit and Comments: Hospital Follow-up [832] Normal [facility] 30on 07-01-2024 30 The patient is Moderately [...] and maintained or improved Outcome: Progressing Normal [facility] BASIC METABOLIC PANELon 06-22 Anion gap [Moles/Vol] 14 mmol/L Normal 7-20 [facility] Comment on above: Performed By: #### L [id number] #### [facility] ([facility]) [address] [place] [address] Calcium [Mass/Vol] 8.2 mg/dL Low 8.6-10.3 [facility] Comment on above: Performed By: #### L [id number] #### [facility] ([facility]) [address] [place] [address] Chloride [Moles/Vol] 106 mmol/L Normal 98-107 [facility] Comment on above: Performed By: #### L [id number] #### [facility] ([facility]) [address] [place] [address] CO2 [Moles/Vol] 25 mmol/L Normal 21-31 [facility] Comment on above: Performed By: #### L [id number] #### [facility] ([facility]) [address] [place] [address] Creatinine [Mass/Vol] 0.91 mg/dL Normal 0.60-1.20 [facility] Comment on above: Performed By: #### L [id number] #### [facility] ([facility]) [address] [place] [address] GLOMERULAR FILTRATION RATE ML/MIN/1.73 SQ M.PREDICTED 72.2 mL/min/1.73m*2 Normal >60.0 [facility] Comment on above: Result Comment: The [facility]???s estimated glomerular filtration rate (eGFR) will no [...] individuals. Performed By: #### L [id number] #### [facility] ([facility]) [address] [place] [address] Glucose [Mass/Vol] 101 mg/dL High 70-100 [facility] Comment on above: Performed By: #### L [id number] #### [facility] [address] [place] [address] Potassium [Moles/Vol] 3.5 mmol/L Normal 3.5-5.1 [facility] Comment on above: Performed By: #### L [id number] #### [facility] [address] [place] [address] Sodium [Moles/Vol] 141 mmol/L Normal 136-145 [facility] Comment on above: Performed By: #### L [id number] #### [facility] [address] [place] [address] Urea nitrogen [Mass/Vol] 13 mg/dL Normal 7-25 [facility] Comment on above: Performed By: #### L [id number] #### [facility] ([facility]) [address] [place] [address] UREA NITROGEN/CREATININE (MASS RATIO) IN SER/PLAS 14.3 Normal [facility] Comment on above: Performed By: #### L [id number] #### [facility] ([facility]) [address] [place] [address] CBCon 07-01-2024 Erythrocyte distribution width (RBC) [Ratio] 15.4 % High 11.5-15.0 [facility] Comment on above: Performed By: #### L [id number] #### [facility] [address] [place] [address] ERYTHROCYTE MEAN CORPUSCULAR HEMOGLOBIN CONCENTRATION (G/DL) BY AUTOMATED 32.1 g/dL Normal 32.0-35.0 [facility] Comment on above: Performed By: #### L [id number] #### [facility] [address] [place] [address] Hematocrit (Bld) [Volume fraction] 38.6 % Normal 36.0-48.0 [facility] Comment on above: Performed By: #### L [id number] #### [facility] [address] [place] [address] Hemoglobin (Bld) [Mass/Vol] 12.4 g/dL Normal 12.0-15.0 [facility] Comment on above: Performed By: #### L [id number] #### [facility] [address] [place] [address] MCH (RBC) [Entitic mass] 26.9 pg Low 27.0-33.0 [facility] Comment on above: Performed By: #### L [id number] #### [facility] ([facility]) [address] [place] [address] MCV (RBC) [Entitic vol] 83.7 fL Normal 82.0-98.0 [facility] Comment on above: Performed By: #### L [id number] #### [facility] ([facility]) [address] [place] [address] PLATELETS (10*3/UL) IN BLOOD AUTOMATED COUNT 238 10*3/uL Normal 150-400 [facility] Comment on above: Performed By: #### L [id number] #### [facility] ([facility]) [address] [place] [address] RBC (Bld) [#/Vol] 4.61 10*6/uL Normal 3.80-5.00 [facility] Comment on above: Performed By: #### L [id number] #### [facility] ([facility]) [address] [place] [address] WBC (Bld) [#/Vol] 7.04 10*3/uL Normal 4.00-10.60 [facility] Comment on above: Performed By: #### L [id number] #### [facility] [address] [place] [address] LIPID PANELon 07-01-2024 CHOL/HDL 3.8 mg/dL Normal [facility] Comment on above: Performed By: #### L [id number] #### [facility] [address] [place] [address] Cholesterol [Mass/Vol] 128 mg/dL Normal 120-200 [facility] Comment on above: Performed By: #### L [id number] #### [facility] ([facility]) [address] [place] [address] Magnesium [Mass/Vol] 87 mg/dL Normal 40-149 [facility] Comment on above: Result Comment: TRIG LYCERIDE REFERENCE RANGE: 20 YEARS AND OLDER CARDIOVASCULAR RISK LESS THAN 150 mg/dL LOW RISK 150 TO 199 mg/dL BORDERLINE RISK 200 mg/dL AND GREATER HIGH RISK Performed By: #### L [id number] #### [facility] ([facility]) [address] [place] [address] Magnesium [Mass/Vol] 77 mg/dL Normal 0-160 [facility] Comment on above: Performed By: #### L [id number] #### [facility] ([facility]) [address] [place] [address] Magnesium [Mass/Vol] 34 mg/dL Normal 23-92 [facility] Comment on above: Performed By: #### L [id number] #### [facility] ([facility]) [address] [place] [address] NON HDL CHOL. (LDL+VLDL) 94 Normal [facility] Comment on above: Performed By: #### L [id number] #### [facility] ([facility]) [address] [place] [address] TOTAL VLDL-C 17 mg/dL Normal 0-40 [facility] Comment on above: Performed By: #### L [id number] #### [facility] ([facility]) [address] [place] [address] MAGNESIUMon 07-01-2024 Magnesium [Mass/Vol] 2.0 mg/dL Normal 1.9-2.7 [facility] Comment on above: Performed By: #### L [id number] #### [facility] ([facility]) [address] [place] [address] NURSNOTEon 07-01-2024 NURSNOTE Discharge instructio ns given, reviewed, questions, answered, signed, copy received. Normal [facility] POCT GLUCOSE METER UNSOLICIT ED RESULTSon 07-01-2024 Glucose [Mass/Vol] 124 mg/dL High 70-105 [facility] Comment on above: Order Comment: Waive d Testing in the ED is performed under the ED CLIA certificate #[id number]. Result Comment: [email or web address] Performed By: #### L [id number] #### [facility] ([facility] [address] [place] [address] Glucose [Mass/Vol] 106 mg/dL High 70-105 [facility] Comment on above: Order Comment: Waive d Testing in the ED is performed under the ED CLIA certificate #[id number]. Result Comment: [email or web address] Performed By: #### L [id number] #### [facility] ([facility]) [address] [place] [address] TROPONIN Ion 07-01-2024 Troponin I.cardiac [Mass/Vol] 0.09 ng/mL High 0.00-0.04 [facility] Comment on above: Performed By: #### L [id number] #### [facility] ([facility]) [address] [place] [address] 30on 06-30-2024 30 The patient is Moderately Stable - Low risk of patient condition declining or worsening The patient's goals for the shift include comfort, rest The clinical goals for the shift include stable vitals, comfort Problem: Pain - Adult Goal: Verbalizes/displays adequate comfort level or baseline comfort level Outcome: Not Progressing Normal [facility] 30 Daily Case Managemen t Update Multidisciplinary [...] PT Recommendations: OT Recommendations: New Consults: Normal [facility] 30 The patient is Moderately Stable - Low risk of patient condition declining or worsening The patient's goals for the shift include COMFORT The clinical goals for the shift include VSS Over the shift, the patient did not make progress toward the following goals. Barriers to progression include . Recommendations to address these barriers include . Normal [facility] ANTI-XA (HEPARIN LEVEL)on HEPARIN UNFRACTIONATED (U/ML) IN PPP BY CHROMOGENIC METHOD 0.64 IU/mL Normal 0.3-0.7 [facility] Comment on above: Order Comment: Waive d Testing in the ED is performed under the ED CLIA certificate #[id number]. Result Comment: [place] roxaban and Apixaban will interfere with the anti Xa assay used to monitor UFH and LMWH. Performed By: #### L [id number] #### [facility] ([facility]) [address] [place] [address] BASIC METABOLIC PANELon Anion gap [Moles/Vol] 11 mmol/L Normal 7-20 [facility] Comment on above: Performed By: #### L [id number] #### [facility] ([facility]) [address] [place] [address] Calcium [Mass/Vol] 8.3 mg/dL Low 8.6-10.3 [facility] Comment on above: Performed By: #### L [id number] #### [facility] ([facility]) [address] [place] [address] Chloride [Moles/Vol] 110 mmol/L High 98-107 [facility] Comment on above: Performed By: #### L [id number] #### [facility] ([facility]) [address] [place] [address] CO2 [Moles/Vol] 26 mmol/L Normal 21-31 [facility] Comment on above: Performed By: #### L [id number] #### [facility] ([facility]) [address] [place] [address] Creatinine [Mass/Vol] 0.81 mg/dL Normal 0.60-1.20 [facility] Comment on above: Performed By: #### L [id number] #### [facility] ([facility]) [address] [place] [address] GLOMERULAR FILTRATION RATE ML/MIN/1.73 SQ M.PREDICTED 83.1 mL/min/1.73m*2 Normal >60.0 [facility] Comment on above: Result Comment: The [facility]???s estimated glomerular filtration rate (eGFR) will no [...] group of individuals. Performed By: #### L [id number] #### [facility] ([facility]) [address] [place] [address] Glucose [Mass/Vol] 110 mg/dL High 70-100 [facility] Comment on above: Performed By: #### L [id number] #### [facility] ([facility]) [address] [place] [address] Potassium [Moles/Vol] 3.7 mmol/L Normal 3.5-5.1 [facility] Comment on above: Performed By: #### L [id number] #### [facility] ([facility]) [address] [place] [address] Sodium [Moles/Vol] 143 mmol/L Normal 136-145 [facility] Comment on above: Performed By: #### L [id number] #### [facility] ([facility]) [address] [place] [address] Urea nitrogen [Mass/Vol] 10 mg/dL Normal 7-25 [facility] Comment on above: Performed By: #### L [id number] #### [facility] [address] [place] [address] UREA NITROGEN/CREATININE (MASS RATIO) IN SER/PLAS 12.3 Normal [facility] Comment on above: Performed By: #### L [id number] #### [facility] [address] [place] [address] CBCon 06-30-2024 Erythrocyte distribution width (RBC) [Ratio] 15.3 % High 11.5-15.0 [facility] Comment on above: Performed By: #### L [id number] #### [facility] ([facility]) [address] [place] [address] ERYTHROCYTE MEAN CORPUSCULAR HEMOGLOBIN CONCENTRATION (G/DL) BY AUTOMATED 31.3 g/dL Low 32.0-35.0 [facility] Comment on above: Performed By: #### L [id number] #### [facility] ([facility]) [address] [place] [address] Hematocrit (Bld) [Volume fraction] 36.7 % Normal 36.0-48.0 [facility] Comment on above: Performed By: #### L [id number] #### [facility] [address] [place] [address] Hemoglobin (Bld) [Mass/Vol] 11.5 g/dL Low 12.0-15.0 [facility] Comment on above: Performed By: #### L [id number] #### [facility] [address] [place] [address] MCH (RBC) [Entitic mass] 26.9 pg Low 27.0-33.0 [facility] Comment on above: Performed By: #### L [id number] #### [facility] [address] [place] [address] MCV (RBC) [Entitic vol] 85.7 fL Normal 82.0-98.0 [facility] Comment on above: Performed By: #### L [id number] #### [facility] [address] [facility] [address] PLATELETS (10*3/UL) IN BLOOD AUTOMATED COUNT 243 10*3/uL Normal 150-400 [facility] Comment on above: Performed By: #### L [id number] #### [facility] ([facility]) [address] [place] [address] RBC (Bld) [#/Vol] 4.28 10*6/uL Normal 3.80-5.00 [facility] Comment on above: Performed By: #### L [id number] #### [facility] ([facility]) [address] [place] [address] WBC (Bld) [#/Vol] 7.41 10*3/uL Normal 4.00-10.60 [facility] Comment on above: Performed By: #### L [id number] #### [facility] ([facility]) [address] [place] [address] CONSULTon 06-30-2024 CONSULT Cardiology Consult Note Reason for Consult: NSTEMI, transfer from [facility] HPI: Aby Madrigal, a 59 y.o. female patient, is transferred from [facility] for continuity of care. Past medical history includes: HTN History of TIA DMII HLD SURESH Overweight Patient reports that 3 days ago, she woke up in the mid of the night with indigestion, and a feeling fullness, but no pressure like chest pain. She presented to [facility], where she was found to be [...] QT Interval 424 QTC CALCULATION(BAZETT) 460 P [place] 52 R-[place] 19 T Wave [place] 164 Impression Normal sinus rhythm Left [...] lead Normal sinu (more content not included)... [facility] HPon 06-30-2024 HP H&P reviewed. The patient was examined and there are no changes to the H&P. 59 y.o. year old female with a PMHx significant for DM2, hypertension presents a direct mission from [facility] with a chief complaint of chest [...] to proceed. Signed, Yris Oakley MD PGY-4 [employer] Pager: [phone] [facility] POCT GLUCOSE METER UNSOLICIT ED RESULTSon 06-30-2024 Glucose [Mass/Vol] 170 mg/dL High 70-105 [facility] Comment on above: Order Comment: Waive d Testing in the ED is performed under the ED CLIA certificate #[id number]. Result Comment: [email or web address] Performed By: #### L [id number] #### [facility] ([facility]) [address] [place] [address] Glucose [Mass/Vol] 129 mg/dL High 70-105 [facility] Comment on above: Order Comment: Waive d Testing in the ED is performed under the ED CLIA certificate #[id number]. Result Comment: [email or web address] Performed By: #### L [id number] #### [facility] ([facility]) [address] [place] [address] Glucose [Mass/Vol] 167 mg/dL High 70-105 [facility] Comment on above: Order Comment: Waive d Testing in the ED is performed under the ED CLIA certificate #[id number]. Result Comment: [email or web address] Performed By: #### L [id number] #### [facility] [address] [place] [address] TROPONIN Ion 06-30-2024 Troponin I.cardiac [Mass/Vol] 0.07 ng/mL High 0.00-0.04 [facility] Comment on above: Performed By: #### L [id number] #### [facility] ([facility]) [address] [place] [address] Troponin I.cardiac [Mass/Vol] 0.10 ng/mL High 0.00-0.04 [facility] Comment on above: Performed By: #### L [id number] #### [facility] ([facility]) [address] [place] [address] Troponin I.cardiac [Mass/Vol] 0.11 ng/mL Critically high 0.00-0.04 [facility] Comment on above: Result Comment: M-TR OPONIN INITIAL CRITICAL HIGH; RESPUN AND RETESTED Performed By: #### L [id number] #### [facility] ([facility]) [address] [place] [address] 30on 06-29-2024 30 The patient is Moderately Stable - Low risk of patient condition declining or worsening The patient's goals for the shift include COMFORT The clinical goals for the shift include VSS Normal [facility] APTTon 06-29-2024 ACTIVATED PARTIAL THROMBOPLASTIN TIME IN PPP BY COAGULATION ASSAY 34.5 Seconds Normal 25.0-35.0 [facility] Comment on above: Order Comment: Basel ine aPTT before initiating heparin infusion. Result Comment: Clin ical significance of the APTT is questionable in the presence of heparin. Performed By: #### L [id number] #### [facility] ([facility]) [address] [place] [address] B-TYPE NATRIURETIC PEPTIDEon 06-29-2024 Natriuretic peptide B (Bld) [Mass/Vol] 222 pg/mL High 0-100 [facility] Comment on above: Performed By: #### L [id number] #### [facility] ([facility]) [address] [place] [address] CBC WITH AUTO DIFFERENTIALon 06-29-2024 Basophils (Bld) [#/Vol] 0.05 10*3/uL Normal 0.00-0.20 [facility] Comment on above: Performed By: #### L [id number] #### [facility] ([facility]) [address] [place] [address] Basophils/100 WBC (Bld) 0.6 % Normal 0.0-1.0 [facility] Comment on above: Performed By: #### L [id number] #### [facility] ([facility]) [address] [place] [address] Eosinophils (Bld) [#/Vol] 0.18 10*3/uL Normal 0.00-0.50 [facility] Comment on above: Performed By: #### L [id number] #### [facility] [address] [place] [address] Eosinophils/100 WBC (Bld) 2.1 % Normal 0.0-6.0 [facility] Comment on above: Performed By: #### L [id number] #### [facility] ([facility]) [address] [place] [address] Erythrocyte distribution width (RBC) [Ratio] 14.9 % Normal 11.5-15.0 [facility] Comment on above: Performed By: #### L [id number] #### [facility] ([facility]) [address] [place] [address] ERYTHROCYTE MEAN CORPUSCULAR HEMOGLOBIN CONCENTRATION (G/DL) BY AUTOMATED 32.9 g/dL Normal 32.0-35.0 [facility] Comment on above: Performed By: #### L [id number] #### [facility] ([facility]) [address] [place] [address] Hematocrit (Bld) [Volume fraction] 35.9 % Low 36.0-48.0 [facility] Comment on above: Performed By: #### L [id number] #### [facility] ([facility]) [address] [place] [address] Hemoglobin (Bld) [Mass/Vol] 11.8 g/dL Low 12.0-15.0 [facility] Comment on above: Performed By: #### L [id number] #### [facility] [address] [place] [address] Immature granulocytes (Bld) [#/Vol] 0.03 10*3/uL Normal 0.00-0.20 [facility] Comment on above: Performed By: #### L [id number] #### [facility] ([facility]) [address] [place] [address] Immature granulocytes/100 WBC (Bld) 0.3 % Normal 0.0-1.0 [facility] Comment on above: Performed By: #### L [id number] #### [facility] ([facility]) [address] [place] [address] Lymphocytes (Bld) [#/Vol] 2.02 10*3/uL Normal 1.20-4.00 [facility] Comment on above: Performed By: #### L [id number] #### [facility] ([facility]) [address] [place] [address] Lymphocytes/100 WBC (Bld) 23.5 % Normal 20.0-45.0 [facility] Comment on above: Performed By: #### L [id number] #### [facility] ([facility]) [address] [place] [address] MCH (RBC) [Entitic mass] 27.2 pg Normal 27.0-33.0 [facility] Comment on above: Performed By: #### L [id number] #### [facility] [address] [place] [address] MCV (RBC) [Entitic vol] 82.7 fL Normal 82.0-98.0 [facility] Comment on above: Performed By: #### L [id number] #### [facility] ([facility]) [address] [place] [address] Monocytes (Bld) [#/Vol] 0.56 10*3/uL Normal 0.10-1.00 [facility] Comment on above: Performed By: #### L [id number] #### [facility] ([facility]) [address] [place] [address] Monocytes/100 WBC (Bld) 6.5 % Normal 5.0-12.0 [facility] Comment on above: Performed By: #### L [id number] #### [facility] ([facility]) [address] [place] [address] Neutrophils (Bld) [#/Vol] 5.74 10*3/uL Normal 1.60-7.60 [facility] Comment on above: Performed By: #### L [id number] #### [facility] ([facility]) [address] [place] [address] Neutrophils/100 WBC (Bld) 67.0 % Normal 40.0-72.0 [facility] Comment on above: Performed By: #### L [id number] #### [facility] ([facility]) [address] [place] [address] NRBC (PER 100 WBCS) BY AUTOMATED COUNT 0.0 % Normal 0 [facility] Comment on above: Performed By: #### L [id number] #### [facility] ([facility]) [address] [place] [address] PLATELETS (10*3/UL) IN BLOOD AUTOMATED COUNT 233 10*3/uL Normal 150-400 [facility] Comment on above: Performed By: #### L [id number] #### [facility] ([facility]) [address] [place] [address] RBC (Bld) [#/Vol] 4.34 10*6/uL Normal 3.80-5.00 [facility] Comment on above: Performed By: #### L [id number] #### [facility] ([facility]) [address] [place] [address] WBC (Bld) [#/Vol] 8.58 10*3/uL Normal 4.00-10.60 [facility] Comment on above: Performed By: #### L [id number] #### [facility] ([facility]) [address] [place] [address] COMPREHENSIVE METABOLIC PANE Alec 06-29-2024 Albumin [Mass/Vol] 3.8 g/dL Normal 3.5-5.7 [facility] Comment on above: Performed By: #### L [id number] #### [facility] ([facility]) [address] [place] [address] ALP [Catalytic activity/Vol] 64 U/L Normal 34-104 [facility] Comment on above: Performed By: #### L [id number] #### [facility] ([facility]) [address] [place] [address] ALT [Catalytic activity/Vol] 35 U/L Normal 7-52 [facility] Comment on above: Performed By: #### L [id number] #### [facility] ([facility]) [address] [place] [address] Anion gap [Moles/Vol] 12 mmol/L Normal 7-20 [facility] Comment on above: Performed By: #### L [id number] #### [facility] ([facility]) [address] [place] [address] AST [Catalytic activity/Vol] 21 U/L Normal 13-39 [facility] Comment on above: Performed By: #### L [id number] #### [facility] ([facility]) [address] [place] [address] Bilirubin [Mass/Vol] 0.4 mg/dL Normal 0.3-1.0 [facility] Comment on above: Performed By: #### L [id number] #### [facility] ([facility]) [address] [place] [address] Calcium [Mass/Vol] 8.5 mg/dL Low 8.6-10.3 [facility] Comment on above: Performed By: #### L [id number] #### [facility] ([facility]) [address] [place] [address] Chloride [Moles/Vol] 112 mmol/L High 98-107 [facility] Comment on above: Performed By: #### L [id number] #### [facility] ([facility]) [address] [place] [address] CO2 [Moles/Vol] 22 mmol/L Normal 21-31 [facility] Comment on above: Performed By: #### L [id number] #### [facility] ([facility]) [address] [place] [address] Creatinine [Mass/Vol] 0.92 mg/dL Normal 0.60-1.20 [facility] Comment on above: Performed By: #### L [id number] #### [facility] ([facility]) [address] [place] [address] GLOMERULAR FILTRATION RATE ML/MIN/1.73 SQ M.PREDICTED 71.3 mL/min/1.73m*2 Normal >60.0 [facility] Comment on above: Result Comment: The [facility]???s estimated glomerular filtration rate (eGFR) will no [...] individuals. Performed By: #### L [id number] #### [facility] ([facility]) [address] [place] [address] Glucose [Mass/Vol] 108 mg/dL High 70-100 [facility] Comment on above: Performed By: #### L [id number] #### [facility] ([facility]) [address] [place] [address] Potassium [Moles/Vol] 3.7 mmol/L Normal 3.5-5.1 [facility] Comment on above: Performed By: #### L [id number] #### [facility] ([facility]) [address] [place] [address] Protein [Mass/Vol] 6.1 g/dL Normal 6.0-8.3 [facility] Comment on above: Performed By: #### L [id number] #### [facility] ([facility]) [address] [place] [address] Sodium [Moles/Vol] 142 mmol/L Normal 136-145 [facility] Comment on above: Performed By: #### L [id number] #### [facility] ([facility]) [address] [place] [address] Urea nitrogen [Mass/Vol] 11 mg/dL Normal 7-25 [facility] Comment on above: Performed By: #### L [id number] #### [facility] ([facility]) [address] [place] [address] UREA NITROGEN/CREATININE (MASS RATIO) IN SER/PLAS 12.0 Normal [facility] Comment on above: Performed By: #### L [id number] #### [facility] ([facility]) [address] [place] [address] MAGNESIUMon 06-29-2024 Magnesium [Mass/Vol] 1.7 mg/dL Low 1.9-2.7 [facility] Comment on above: Performed By: #### L [id number] #### [facility] ([facility]) [address] [place] [address] PHOSPHORUSon 06-29-2024 Magnesium [Mass/Vol] 2.9 mg/dL Normal 2.5-5.0 [facility] Comment on above: Performed By: #### L [id number] #### [facility] ([facility]) [address] [place] [address] PROTIME-INRon 06-29-2024 INR IN PPP BY COAGULATION ASSAY 0.99 Normal 0.90-1.10 [facility] Comment on above: Result Comment: ACCC P [...] RANGE. CHEST 1995;108:231S-246S. Performed By: #### L [id number] #### [facility] [address] [place] [address] PROTHROMBIN TIME (PT) IN PPP BY COAGULATION ASSAY 13.1 Seconds Normal 12.3-14.8 [facility] Comment on above: Performed By: #### L [id number] #### [facility] [address] [place] [address] TROPONIN Ion 06-29-2024 Troponin I.cardiac [Mass/Vol] 0.10 ng/mL High 0.00-0.04 [facility] Comment on above: Performed By: #### L [id number] #### [facility] ([facility]) [address] [place] [address] Office Visiton 06-21-2024 Follow-up visit [id number] Aby Madrigal 1965 F Date Provider Department Center 06/21/2024 GOMEZ KENDALL RIAZ [place] Family History Problem Relation Age of Onset Lung cancer Mother No Known Problems Father Lung cancer Sister Family Status - Relation Status Age at Mother Father Sister Level of Service:82896 NM OFFICE/OUTPATIENT ESTABLISHED MOD MDM 30 MIN Normal [facility] Office Visiton 05-26-2024 Follow-up visit [id number] Aby Madrigal 1965 F Date Provider Department Center 05/26/2024 [id number], SAMAR [facility] Family History Problem Relation Age of Onset Lung cancer Mother No Known Problems Father Lung cancer Sister Family Status - Relation Status Age at Mother Father Sister Level of Service:07829 NM OFFICE/OUTPATIENT NEW MODERATE MDM 45 MINUTES Normal [facility] Outside Colonoscopyon 2022 Outside Colonoscopy [id number] 50 [id number]#1.0 0CD:127 Normal [facility] Reminderson 11-27-2022 Reminders - From: Na Hayes LPN To: N - Clinical; Sent: 11/27/2022 12:46:10 EST Show up: 10/25/2032 07:00:00 EST Subject: colonoscopy recall Due Date/Time: 11/25/2032 07:00:00 EST Reminder/Recall Patient is due for screening colonoscopy 11/25/2032. Normal [facility] Lab Reportson 11-24-2022 Lab Reports [id number]#1.0 0CD:127 Normal [facility] Covid-19 PCR (CVDTB)on 10-24 SARS-CoV-2 (COVID-19) RNA BECK+probe Ql (Unsp spec) Not detected Normal NOT DETECTED [facility] Comment on above: Result Comment: This test is not yet approved or cleared by the [place] FDA. When there are no FDA-approved or cleared tests available, and other criteria are met, FDA can make tests available under an emergency access mechanism called an Emergency Use Authorization (EUA). The EUA for this test is supported by the Inspector [employer] Hose of Health and Human Service's (HHS's) declaration [...] SARS-CoV-2. Performed By: #### C [facility] #### [facility] [address] [address] [address] Rich Cutler Consent for Procedure/Surger yon 10-07-2022 Consent for Procedure/Surgery [id number] 0CD:127 Normal [facility] Ambulatory Visit Summaryon 1 12-06-2021 Ambulatory Visit Summary ABY MADRIGAL :1965 Visit Date:10/06/2022 Ambulatory Visit Instructions Your Care Team Attending Physician - DIPESH BUCKNER, Umm Michael Primary Care Physician - Kendra Mroan MD This Is Your Medications List Contact [...] for. Allergic conjunctivitis Anticoagulated Kidney stones Normal [facility] VC VENOUS REFLUX NINO LMTon 1 12-02-2021 VC VENOUS REFLUX NINO LMT Patient: ABY MADRIGAL Exam Date: 10/02/2022 : 1965 Gender:F Ordering : DR KENDRA MORAN . Admission #: [id number] Family : Order #: [id number] CLICK HERE TO VIEW EXAM RADIOLOGY REPORT [...] chronic thrombus visualized Compressibility: Normal Flow: Normal [employer]: Dist/med calf 3.3mm with 0s reflux. Tech Note: Incompetent SFJ and GSV. Patent varicose vein mid/med calf 2.9mm with 0s reflux. Patent varicose vein prox/post calf 3.8mm with 0s reflux. Patent varicose vein dist/med thigh 3.8mm with 2.0s reflux. CONCLUSION: 1. Mild right and [id number]-[id number] left great saphenous vein venous insufficiency with dilatation 2. Left saphenous popliteal junction reflux 3. Mild left anterior accessory saphenous vein venous insufficiency without dilatation 4. Small bilateral incompetent varicose veins Dictated by: Adelia Lezama MD on 10/02/2022 at 13:36 Approved by: Adelia Lezama MD on 10/02/2022 at 13:52 Normal [facility] ECHOCARDIO M/2D COMPLETEon 1 11-30-2021 ECHOCARDIO M/2D COMPLETE Patient: ABY MADRIGAL Exam Date: 09/30/2022 : 1965 Gender:F Ordering : DR KENDRA MORAN . Admission #: [id number] Family : Order #: [id number] CLICK HERE TO VIEW EXAM ECHOCARDIOGRAM REPORT [...] on 09/30/2022 at 18:37 Normal [facility] BNPon 09-24-2022 Natriuretic peptide B (Bld) [Mass/Vol] 501.0 pg/mL Normal <=900.0 [facility] Comment on above: Performed By: #### C VDTB #### [facility] [address] [place] [address] Dr. Rich Cutler CBC AUTO DIFFon 09-24-2022 BASO # 0.1 103/ul Normal 0.0-0.1 [facility] Comment on above: Performed By: #### C VDTB #### [facility] [address] [address] [address] Rich Cutler Basophils/100 WBC (Bld) 0.8 % Normal 0.2-2.0 [facility] Comment on above: Performed By: #### C VDTB #### [facility] [address] [address] [address] Rich Cutler EO # 0.3 103/ul Normal 0.0-0.7 [facility] Comment on above: Performed By: #### C VDTBH #### [facility] [address] [place] [address] Dr. Rihc Cutler Eosinophils/100 WBC (Bld) 3.4 % Normal 0.9-7.0 [facility] Comment on above: Performed By: #### C VDTBH #### [facility] [address] [place] [address] Dr. Rich Cutler Erythrocyte distribution width (RBC) [Ratio] 13.3 % Normal 11.0-15.0 [facility] Comment on above: Performed By: #### C VDTBH #### [facility] [address] [place] [address] Dr. Rich Cutler Hematocrit (Bld) [Volume fraction] 40.5 % Normal 36.0-48.0 [facility] Comment on above: Performed By: #### C VDTBH #### [facility] [address] [place] [address] Dr. Rich Cutler Hemoglobin (Bld) [Mass/Vol] 13.1 g/dL Normal 12.0-16.0 [facility] Comment on above: Performed By: #### C VDTBH #### [facility] [address] [place] [address] Dr. Rich Cutler IG # 0.02 10e3/ul Normal 0.00-0.03 [facility] Comment on above: Performed By: #### C VDTBH #### [facility] [address] [place] [address] Dr. Rich Cutler IG % 0.3 % Normal 0.0-0.5 [facility] Comment on above: Performed By: #### C VDTBH #### [facility] [address] [place] [address] Dr. Rich Cutler LYMPH # 2.7 103/ul Normal 1.2-3.8 [facility] Comment on above: Performed By: #### C VDTBH #### [facility] [address] [place] [address] Dr. Rich Cutler Lymphocytes/100 WBC (Bld) 35.4 % Normal 20.5-60.0 [facility] Comment on above: Performed By: #### C VDTBH #### [facility] [address] [place] [address] Dr. Rich Cutler MANUAL DIFF REQ NO Normal [facility] Comment on above: Performed By: #### C VDTBH #### [facility] [address] [place] [address] Dr. Rich Cutler MCH (RBC) [Entitic mass] 28.2 pg Normal 26.7-34.0 [facility] Comment on above: Performed By: #### C VDTBH #### [facility] [address] [place] [address] Dr. Rich Cutler MCHC (RBC) [Mass/Vol] 32.3 g/dL Normal 29.9-35.2 [facility] Comment on above: Performed By: #### C VDTBH #### [facility] [address] [place] [address] Dr. Rich Cutler MCV (RBC) [Entitic vol] 87.3 fL Normal 81.0-99.0 [facility] Comment on above: Performed By: #### C VDTBH #### [facility] [address] [place] [address] Dr. Rich Cutler MONO # 0.5 103/ul Normal 0.3-0.8 [facility] Comment on above: Performed By: #### C VDTBH #### [facility] [address] [place] [address] Dr. Rich Cutler Monocytes/100 WBC (Bld) 6.5 % Normal 1.7-12.0 [facility] Comment on above: Performed By: #### C VDTBH #### [facility] [address] [place] [address] Dr. Rich Cutler NEUT # 4.1 103/ul Normal 1.4-6.5 [facility] Comment on above: Performed By: #### C VDTBH #### [facility] [address] [place] [address] Dr. Rich Cutler Neutrophils/100 WBC (Bld) 53.6 % Normal 43.0-75.0 [facility] Comment on above: Performed By: #### C VDTBH #### [facility] [address] [place] [address] Dr. Rich Cutler Platelet mean volume (Bld) [Entitic vol] 10.3 fL Normal 9.5-13.5 [facility] Comment on above: Performed By: #### C VDTBH #### [facility] [address] [place] [address] Dr. Rich Cutler PLT 283 103/ul Normal 150-450 [facility] Comment on above: Performed By: #### C ALEXANDERTBH #### [facility] [address] [place] [address] Dr. Rich Cutler RBC 4.64 106/ul Normal 4.20-5.40 [facility] Comment on above: Performed By: #### C ALEXANDERTBH #### [facility] [address] [place] [address] Dr. Rich Cutler WBC 7.6 103/ul Normal 4.0-11.0 [facility] Comment on above: Performed By: #### C ALEXANDERTBH #### [facility] [address] [place] [address] Dr. Rich Cutler INSULINon 09-24-2022 Insulin 15.1 uIU/mL Normal 2.6-24.9 [facility] Comment on above: Performed By: #### C ALEXANDERTBH #### [facility] [address] [place] [address] Dr. Rich Cutler PROF 14(COMP METB)on 022 Albumin [Mass/Vol] 3.5 g/dL Normal 3.4-5.0 [facility] Comment on above: Performed By: #### C VDTBH #### [facility] [address] [place] [address] Dr. Rich Cutler Albumin/Globulin [Mass ratio] 1.0 {ratio} Normal [facility] Comment on above: Performed By: #### C VDTBH #### [facility] [address] [address] [address] Rich Cutler ALP [Catalytic activity/Vol] 91 U/L Normal 46-116 [facility] Comment on above: Performed By: #### C VDTBH #### [facility] [address] [place] [address] Dr. Rich Cutler ALT [Catalytic activity/Vol] 47 U/L Normal 14-59 [facility] Comment on above: Performed By: #### C VDTBH #### [facility] [address] [place] [address] Dr. Rich Cutler Anion gap [Moles/Vol] 11.7 mmol/L Normal [facility] Comment on above: Performed By: #### C VDTBH #### [facility] [address] [place] [address] Dr. Rich Cutler AST [Catalytic activity/Vol] 24 U/L Normal 15-37 [facility] Comment on above: Performed By: #### C VDTBH #### [facility] [address] [place] [address] Dr. Rich Cutler Bilirubin [Mass/Vol] 0.2 mg/dL Normal 0.2-1.0 [facility] Comment on above: Performed By: #### C VDTBH #### [facility] [address] [place] [address] Dr. Rich Cutler Calcium [Mass/Vol] 8.9 mg/dL Normal 8.5-10.1 [facility] Comment on above: Performed By: #### C VDTBH #### [facility] [address] [place] [address] Dr. Rich Cutler Chloride [Moles/Vol] 105 mmol/L Normal 98-107 [facility] Comment on above: Performed By: #### C VDTBH #### [facility] Laboratory [address] [place] [address] Dr. Rich Cutler CO2 [Moles/Vol] 28.1 mmol/L Normal 21.0-32.0 [facility] Comment on above: Performed By: #### C VDTBH #### [facility] [address] [place] [address] Dr. Rich Cutler Creatinine [Mass/Vol] 1.13 mg/dL Critically high 0.55-1.02 [facility] Comment on above: Performed By: #### C VDTBH #### [facility] [address] [address] [address] Rich Cutler EGFR-AF SWEDISH 60 mL/min/1.73m2 Normal >=60 [facility] Comment on above: Performed By: #### C VDTBH #### [facility] [address] [address] [address] Rich Cutler EGFR-NON AF SWEDISH 49 mL/min/1.73m2 Critically low >=60 [facility] Comment on above: Performed By: #### C VDTBH #### [facility] [address] [address] [address] Rich Cutler Globulin (S) [Mass/Vol] 3.5 g/dL Normal [facility] Comment on above: Performed By: #### C VDTBH #### [facility] [address] [address] [address] Rich Cutler Glucose [Mass/Vol] 119 mg/dL Critically high 74-106 [facility] Comment on above: Performed By: #### C VDTBH #### [facility] [address] [address] [address] Rich Cutler Potassium [Moles/Vol] 3.8 mmol/L Normal 3.5-5.1 [facility] Comment on above: Performed By: #### C VDTBH #### [facility] [address] [address] [address] Rich Cutler Protein [Mass/Vol] 7.0 g/dL Normal 6.4-8.2 [facility] Comment on above: Performed By: #### C VDTBH #### [facility] [address] [address] [address] Rich Cutler Sodium [Moles/Vol] 141 mmol/L Normal 136-145 [facility] Comment on above: Performed By: #### C VDTBH #### [facility] [address] [id number] Rich Cutler Urea nitrogen [Mass/Vol] 16.0 mg/dL Normal 7.0-18.0 [facility] Comment on above: Performed By: #### C VDTBH #### [facility] [address] [place], [place] [address] Dr. Rich Cutler Urea nitrogen/Creatinine [Mass ratio] 14.2 mg/mg Normal [facility] Comment on above: Performed By: #### C VDTBH #### [facility] [address] [address] [address] Rich Cutler TROPONIN, HIGH SENSITIVITYon 09-24-2022 HSTROP 10.6 pg/mL Normal 4.0-51.3 [facility] Comment on above: Result Comment: CUT- OFF POINTS HAVE BEEN ESTABLISHED BASED ON THE FOURTH UNIVERSAL DEFINITIONS OF MYOCARDIAL INFARCTION. THE UPPER REFERENCE LIMIT (URL) OF TROPONIN, DEFINED THE 99TH PERCENTILE OF cTnI DISTRIBUTION IN A REFERENCE POPULATION, HAS BEEN CONFIRMED THE DECISION THRESHOLD FOR NM DIAGNOSIS. Performed By: #### C VDTBH #### [facility] [address] [place] [address] Dr. Rich Cutler XR CHEST 1 Von [...] HUMPHRIES Date: 2022-09-24 04:08 Normal [facility] CBC AUTO DIFFon 09-23-2022 BASO # 0.1 103/ul Normal 0.0-0.1 [facility] Comment on above: Performed By: #### C BC #### [facility] [address] [address] [address] Rich Cutler Basophils/100 WBC (Bld) 0.8 % Normal 0.2-2.0 [facility] Comment on above: Performed By: #### C BC #### [facility] [address] [place] [address] Dr. Rich Cutler EO # 0.2 103/ul Normal 0.0-0.7 [facility] Comment on above: Performed By: #### C BC #### [facility] [address] [place] [address] Dr. Rich Cutler Eosinophils/100 WBC (Bld) 3.5 % Normal 0.9-7.0 [facility] Comment on above: Performed By: #### C BC #### [facility] [address] [place] [address] Dr. Rich Cutler Erythrocyte distribution width (RBC) [Ratio] 13.4 % Normal 11.0-15.0 [facility] Comment on above: Performed By: #### C BC #### [facility] [address] [place] [address] Dr. Rich Cutler Hematocrit (Bld) [Volume fraction] 42.3 % Normal 36.0-48.0 [facility] Comment on above: Performed By: #### C BC #### [facility] [address] [place] [address] Dr. Rich Cutler Hemoglobin (Bld) [Mass/Vol] 13.4 g/dL Normal 12.0-16.0 [facility] Comment on above: Performed By: #### C BC #### [facility] [address] [place] [address] Dr. Rich Cutler IG # 0.03 10e3/ul Normal 0.00-0.03 [facility] Comment on above: Performed By: #### C BC #### [facility] [address] [place] [address] Dr. Rich Cutler IG % 0.5 % Normal 0.0-0.5 [facility] Comment on above: Performed By: #### C BC #### [facility] [address] [place] [address] Dr. Rich Cutler LYMPH # 2.9 103/ul Normal 1.2-3.8 [facility] Comment on above: Performed By: #### C BC #### [facility] [address] [place] [address] Dr. Rich Cutler Lymphocytes/100 WBC (Bld) 44.0 % Normal 20.5-60.0 [facility] Comment on above: Performed By: #### C BC #### [facility] [address] [place] [address] Dr. Rich Cutler MANUAL DIFF REQ NO Normal [facility] Comment on above: Performed By: #### C BC #### [facility] [address] [place] [address] Dr. Rich Cutler MCH (RBC) [Entitic mass] 28.4 pg Normal 26.7-34.0 [facility] Comment on above: Performed By: #### C BC #### [facility] [address] [place] [address] Dr. Rich Cutler MCHC (RBC) [Mass/Vol] 31.7 g/dL Normal 29.9-35.2 [facility] Comment on above: Performed By: #### C BC #### [facility] [address] [place] [address] Dr. Rich Cutler MCV (RBC) [Entitic vol] 89.6 fL Normal 81.0-99.0 [facility] Comment on above: Performed By: #### C BC #### [facility] [address] [place] [address] Dr. Rich Cutler MONO # 0.4 103/ul Normal 0.3-0.8 [facility] Comment on above: Performed By: #### C BC #### [facility] [address] [place] [address] Dr. Rich Cutler Monocytes/100 WBC (Bld) 6.6 % Normal 1.7-12.0 [facility] Comment on above: Performed By: #### C BC #### [facility] [address] [place] [address] Dr. Rich Cutler NEUT # 2.9 103/ul Normal 1.4-6.5 [facility] Comment on above: Performed By: #### C BC #### [facility] [address] [place] [address] Dr. Rich Cutler Neutrophils/100 WBC (Bld) 44.6 % Normal 43.0-75.0 [facility] Comment on above: Performed By: #### C BC #### [facility] [address] [place] [address] Dr. Rich Cutler Platelet mean volume (Bld) [Entitic vol] 11.0 fL Normal 9.5-13.5 [facility] Comment on above: Performed By: #### C BC #### [facility] [address] [place] [address] Dr. Rich Cutler PLT 272 103/ul Normal 150-450 [facility] Comment on above: Performed By: #### C BC #### [facility] [address] [place] [address] Dr. Rich Cutler RBC 4.72 106/ul Normal 4.20-5.40 [facility] Comment on above: Performed By: #### C BC #### [facility] [address] [place] [address] Dr. Rich Cutler WBC 6.5 103/ul Normal 4.0-11.0 [facility] Comment on above: Performed By: #### C BC #### [facility] [address] [place] [address] Dr. Rich Cutler FREE THYROXINE INDEX T7on FTI 2.16 Normal 1.30-4.50 [facility] Comment on above: Performed By: #### L IPID, TSH, T7, CMP #### [facility] [address] [place] [address] Dr. Rich Cutler T3U 30.0 % Normal 30.0-39.0 [facility] Comment on above: Performed By: #### L IPID, TSH, T7, CMP #### [facility] [address] [place] [address] Dr. Rich Cutler T4 [Mass/Vol] 7.20 ug/dL Normal 4.80-13.90 [facility] Comment on above: Performed By: #### L IPID, TSH, T7, CMP #### [facility] [address] [address] [address] Rich Cutler GLYCOHEMOGLOBIN A1Con 2021 ADA RECOMMENDATION SEE BELOW Normal [facility] Comment on above: Result Comment: ADA RECOMMENDED LIMIT 4.0 - 6.0 ADA THERAPEUTIC TARGET < 7.0 ACTION SUGGESTED > 7.0 Performed By: #### A 1C #### [facility] [address] [address] [address] Rich Cutler Glucose [Mass/Vol] 128 mg/dL Normal [facility] Comment on above: Performed By: #### A 1C #### [facility] [address] [place] [address] Dr. Rich Cutler HbA1c (Bld) [Mass fraction] 6.1 % Normal 4.5-6.2 [facility] Comment on above: Performed By: #### A 1C #### [facility] [address] [address] [address] Rich Cutler IRONon 09-23-2022 Iron [Mass/Vol] 64.0 ug/dL Normal 50.0-170.0 [facility] Comment on above: Performed By: #### C VDTB #### [facility] [address] [place] [address] Dr. Rich Cutler LIPID PROFILEon 09-23-2022 CHOL-HDL RATIO NORM SEE BELOW Normal [place] Comment on above: Result Comment: 3.3 - 4.4 LOW RISK 4.4 - 7.1 AVERAGE RISK 7.1 - 11.0 MODERATE RISK >11.0 HIGH RISK Performed By: #### L IPID, TSH, T7, CMP #### [facility] [address] [place] [address] Dr. Rich Cutler Cholesterol [Mass/Vol] 237 mg/dL Critically high <=200 [facility] Comment on above: Performed By: #### L IPID, TSH, T7, CMP #### [facility] [address] [place] [address] Dr. Rich Cutler Cholesterol in HDL [Mass/Vol] 44 mg/dL Normal 40-60 [facility] Comment on above: Performed By: #### L IPID, TSH, T7, CMP #### [facility] [address] [address] [address] Rich Cutler Cholesterol in LDL [Mass/Vol] 172.2 mg/dL Normal [facility] Comment on above: Performed By: #### L IPID, TSH, T7, CMP #### [facility] [address] [address] [address] Rich Cutler Cholesterol.total/C holesterol in HDL [Mass ratio] 5.4 {ratio} Normal [facility] Comment on above: Performed By: #### L IPID, TSH, T7, CMP #### [facility] [address] [address] [address] Rich Cutler HDL NORMAL > or = 60 mg/dl - LO W CARDIOVASCULAR RISK <40 mg/dl - HIGH CARDIOVASCULAR RISK Normal [facility] Comment on above: Performed By: #### L IPID, TSH, T7, CMP #### [facility] [address] [address] [address] Rich Cutler LDL CALC NORMAL SEE BELOW Normal [facility] Comment on above: Result Comment: <100 mg/dl OPTIMAL 100 - 129 mg/dl NEAR OR ABOVE OPTIMAL 130 - 159 mg/dl BORDERLINE HIGH 160 - 189 mg/dl HIGH >190 mg/dl VERY HIGH Performed By: #### L IPID, TSH, T7, CMP #### [facility] [address] [address] [address] Rich Cutler Triglyceride [Mass/Vol] 104 mg/dL Normal <=150 [facility] Comment on above: Performed By: #### L IPID, TSH, T7, CMP #### [facility] [address] [address] [address] Rich Cutler VLDL CALC 20.8 mg/dL Normal [facility] Comment on above: Performed By: #### L IPID, TSH, T7, CMP #### [facility] [address] [address] [address] Rich Cutler PROF 14(COMP METB)on 022 Albumin [Mass/Vol] 3.5 g/dL Normal 3.4-5.0 [facility] Comment on above: Performed By: #### L IPID, TSH, T7, CMP #### [facility] [address] [place] [address] Dr. Rich Cutler Albumin/Globulin [Mass ratio] 0.9 {ratio} Normal [facility] Comment on above: Performed By: #### L IPID, TSH, T7, CMP #### [facility] [address] [place] [address] Dr. Rich Cutler ALP [Catalytic activity/Vol] 93 U/L Normal 46-116 [facility] Comment on above: Performed By: #### L IPID, TSH, T7, CMP #### [facility] [address] [place] [address] Dr. Rich Cutler ALT [Catalytic activity/Vol] 44 U/L Normal 14-59 [facility] Comment on above: Performed By: #### L IPID, TSH, T7, CMP #### [facility] [address] [place] [address] Dr. Rich Cutler Anion gap [Moles/Vol] 8.5 mmol/L Normal [facility] Comment on above: Performed By: #### L IPID, TSH, T7, CMP #### [facility] [address] [place] [address] Dr. Rich Cutler AST [Catalytic activity/Vol] 26 U/L Normal 15-37 [facility] Comment on above: Performed By: #### L IPID, TSH, T7, CMP #### [facility] [address] [place] [address] Dr. Rich Cutler Bilirubin [Mass/Vol] 0.3 mg/dL Normal 0.2-1.0 [facility] Comment on above: Performed By: #### L IPID, TSH, T7, CMP #### [facility] [address] [place] [address] Dr. Rich Cutler Calcium [Mass/Vol] 9.0 mg/dL Normal 8.5-10.1 [facility] Comment on above: Performed By: #### L IPID, TSH, T7, CMP #### [facility] [address] [place] [address] Dr. Rich Cutler Chloride [Moles/Vol] 106 mmol/L Normal 98-107 [facility] Comment on above: Performed By: #### L IPID, TSH, T7, CMP #### [facility] [address] [place] [address] Dr. Rich Cutler CO2 [Moles/Vol] 31.0 mmol/L Normal 21.0-32.0 [facility] Comment on above: Performed By: #### L IPID, TSH, T7, CMP #### [facility] [address] [place] [address] Dr. Rich Cutler Creatinine [Mass/Vol] 1.11 mg/dL Critically high 0.55-1.02 [facility] Comment on above: Performed By: #### L IPID, TSH, T7, CMP #### [facility] [address] [place] [address] Dr. Rich Cutler EGFR-AF SWEDISH >60 Normal >=60 [facility] Comment on above: Performed By: #### L IPID, TSH, T7, CMP #### [facility] [address] [place] [address] Dr. Rich Cutler EGFR-NON AF SWEDISH 50 mL/min/1.73m2 Critically low >=60 [facility] Comment on above: Performed By: #### L IPID, TSH, T7, CMP #### [facility] [address] [place] [address] Dr. Rich Cutler Globulin (S) [Mass/Vol] 3.7 g/dL Normal [facility] Comment on above: Performed By: #### L IPID, TSH, T7, CMP #### [facility] [address] [place] [address] Dr. Rich Cutler Glucose [Mass/Vol] 121 mg/dL Critically high 74-106 T [facility] Comment on above: Performed By: #### L IPID, TSH, T7, CMP #### [facility] [address] [place] [address] Dr. Rich Cutler Potassium [Moles/Vol] 4.5 mmol/L Normal 3.5-5.1 [facility] Comment on above: Performed By: #### L IPID, TSH, T7, CMP #### [facility] [address] [address] [address] Rich Cutler Protein [Mass/Vol] 7.2 g/dL Normal 6.4-8.2 [facility] Comment on above: Performed By: #### L IPID, TSH, T7, CMP #### [facility] [address] [address] [address] Rich Cutler Sodium [Moles/Vol] 141 mmol/L Normal 136-145 [facility] Comment on above: Performed By: #### L IPID, TSH, T7, CMP #### [facility] [address] [place] [address] Dr. Rich Cutler Urea nitrogen [Mass/Vol] 16.0 mg/dL Normal 7.0-18.0 [facility] Comment on above: Performed By: #### L IPID, TSH, T7, CMP #### [facility] [address] [place] [address] Dr. Rich Cutler Urea nitrogen/Creatinine [Mass ratio] 14.4 mg/mg Normal [facility] Comment on above: Performed By: #### L IPID, TSH, T7, CMP #### [facility] [address] [address] [address] Rich Cutler TSHon 09-23-2022 TSH 3.915 uIU/mL Critically high 0.358-3.740 [facility] Comment on above: Performed By: #### L IPID, TSH, T7, CMP #### [facility] [address] [address] [address] Rich Cutler Physician Referralon 022 Physician Referral [phone] [id number] Normal [facility] Lipid Panelon 10-07-2021 Cholesterol [Mass/Vol] 205 mg/dL High 140-200 [facility] Comment on above: Result Comment: Chol less than 200 mg/dl low risk Chol 201-239 mg/dl borderline risk Chol 240 mg/dl and greater high risk Performed By: #### L IPID, [id number], TSH3 wRFLX #### [facility] [address] Cholesterol in HDL [Mass/Vol] 25 mg/dL Low 35-85 [facility] Comment on above: Result Comment: HDL CHOL ATP-III CLASSIFICATION Cardiovascular Risk HDL > or equal to 60 mg/dL LOW HDL < 40 mg/dL HIGH Performed By: #### L IPID, [id number], TSH3 wRFLX #### [facility] [address] [place] [address] [place] Cholesterol.total/C holesterol in HDL [Mass ratio] 8.2 {ratio} Normal <5.0 [facility] Comment on above: Performed By: #### L IPID, [id number], TSH3 wRFLX #### [address] LDL Cholesterol,Calcula coby 160 mg/dL High 0-100 [facility] Comment on above: Result Comment: LDL ATP III CLASSIFICATION LDL less than 100 mg/dL Optimal LDL 100-129 mg/dL Near or above optimal LDL 130-159 mg/dL Borderline high LDL 160-189 mg/dL High LDL greater than 189 mg/dL Very high Performed By: #### L IPID, [id number], TSH3 wRFLX #### [facility] [address] [place] [address] [place] Triglyceride w/Reflex 100 mg/dL Normal 35-149 [facility] Comment on above: Result Comment: TRIG ATP III CLASSIFICATION TRIG less than 150 mg/dL Normal TRIG 150-199 mg/dL Borderline high TRIG 200-500 mg/dL High TRIG greater than 500 mg/dL Very high Standard traceable to the Center for Disease Conrtrol and Prevention (CDC) test method. Performed By: #### L IPID, [id number], TSH3 wRFLX #### [facility] [address] [place] [address] VLDL CHOLESTEROL 20 mg/dL Normal [facility] Comment on above: Performed By: #### L IPID, [id number], TSH3 wRFLX #### [address] Thyroid Stim Hormone w/Rflxo n 10-07-2021 Thyroid Stim Hormone w/Rflx 3.27 u[iU]/mL Normal 0.45-5.33 [facility] Comment on above: Performed By: #### L IPID, [id number], TSH3 wRFLX #### [address] Vitamin D 25 Hydroxy Totalon 10-07-2021 Vitamin D 25 Hydroxy Total 26.5 ng/mL Low 30-100 [facility] Comment on above: Result Comment: JACKELINE MIN D STATUS 25(OH)VITAMIN D RANGE (ng/mL) Deficient <20 Insufficient 20 to <30 Sufficient 30 to 100 Reference: Lanny MF,Gino NC, Dyan VALENZUELA, et al. Evaluation,treatment, and prevention of vitamin D deficiency; an Endocrine Society clinical practice guideline. JCEM. 2010; 96(7):1911-30. PERFORMED BY: [place] [address] PATHOLOGIST [employer] FABRICATOR SILVESTRE SCHULER M.D. Performed By: #### L IPID, [id number], TSH3 wRFLX #### [place] [id number] [facility] Vital Signs Date Time Vital Sign Value Performing Clinician Deidre gagnon 10-06-2022 15:36-0500 Blood Pressure Location Umm LANDON [facility] [place] 10-06-2022 15:36-0500 Diastolic blood pressure 86 mm[Hg] Umm LANDON [facility] [place] 10-06-2022 15:36-0500 Heart rate 72 /min Umm LANDON [facility] 10-06-2022 15:36-0500 Respiratory rate 16 /min Umm LANDON [facility] [place] 10-06-2022 15:36-0500 Systolic blood pressure 126 mm[Hg] Umm LANDON [facility] [place] Encounters Encounter Date Encounter Type Care Provider Facility Start: 08-04-2024 End: 08-04-2024 ambulatory [facility] Start: 07-20-2024 ambulatory [facility] Start: 07-18-2024 ambulatory FENG CHRISTIE [facility] Start: 07-18-2024 End: 07-18-2024 Emergency department patient visit HERMINIA JULAIN [facility] Start: 07-18-2024 End: 07-18-2024 ambulatory MESERET MAC [facility] Start: 07-11-2024 Evaluation and manag ement of inpatient [facility] Start: 07-11-2024 Evaluation and manag ement of inpatient [facility] Start: 07-11-2024 [place] Start: 07-11-2024 End: 07-12-2024 Evaluation and management of inpatient TAO Dugan [facility] Start: 07-10-2024 End: 07-10-[address] [facility] Start: 06-30-2024 Evaluation and manag ement of inpatient [facility] Start: 06-30-2024 Evaluation and manag ement of inpatient [facility] Start: 06-29-2024 End: 07-01-2024 [facility]: 06-21-2024 End: 06-21-2024 ambulatory [facility] Start: 05-26-2024 End: 05-26-[address] [facility] Start: 11-26-2022 Encounter for preprocedural laboratory examination DR UMM LANDON . [facility] Start: 11-25-2022 End: 11-26-2022 ambulatory Umm LANDON Facility:CD:[id number] Start: 11-20-2022 End: 11-21-[address] UMM LANDON . Facility:[facility] Start: 11-20-2022 End: 11-21-2022 Encounter for preprocedural laboratory examination DR UMM LANDON . Facility: Start: 10-06-2022 End: 10-07-2022 ambulatory Umm LANDON Facility:[facility] Start: 10-06-2022 End: 10-06-2022 Patient encounter procedure Umm LANDON [facility] Start: 10-02-2022 End: 10-03-[address] KENDRA MORAN . Facility: Start: 09-30-2022 End: 10-01-[address] KENDRA MORAN . Facility:[facility] Start: 09-28-2022 Encounter for genera l adult medical examination without abnormal findings DR KENDRA MORAN . [facility] Start: 09-24-2022 End: 09-24-[address] YSBIL CORDOVA . Facility: Start: 09-23-2022 End: 09-24-[address] KENDRA MORAN . Facility: Start: 09-23-2022 End: 09-24-2022 Encounter for general adult medical examination without abnormal findings DR KENDRA MORAN . Facility: Start: 09-14-[address] KENDRA MORAN . Facili ty:[facility] Procedures Date Procedure Procedure Detail Performing Clinician Start: 08-29-2019 Cystoscopic removal of ureteric stent Umm LANDON Bilateral tubal ligation Ad hael DIPESH Catheterization of l eft heart Umm LANDON Cholecystectomy Umm NILL Cystoscopic insertio n of ureteric stent Umm LANDON Dilation and curetta ge of uterus Umm LANDON Vaginal hysterectomy Umm LANDON Immunizations Immunization Date Immunization Notes Care Provider Hailey slaughter 04-14-2021 SARS-CoV-2 (COVID-19 ) mRNA BNT-162b2 vax Umm JACQUESL [facility] [place] 03-11-2021 SARS-CoV-2 (COVID-19 ) mRNA BNT-162b2 vax Umm JACQUESL [facility] [place] Payers Date Payer Category Payer Medicaid [id number] 1965 Unknown [id number] 2.16.8 [id number] 1965 Unknown [id number] 2.16.8 [id number] 1964 Unknown [id number] 2.16.84 [id number] 1964 Unknown [id number] 2.16.84 [id number] 1964 Unknown [id number] 2.16.84 [id number] 1964 Unknown [id number] 2.16.84 [id number] 1964 Unknown [id number] 2.16.84 [id number] 1964 Unknown [id number] 2.16.84 [id number] 1964 Unknown [id number] 2.16.84 [id number] 1959 Self-pay [id number] 1960 Unknown [id number] Social History Date Type Detail Facility Start: 10-06-2022 Tobacco smoking status Ex-smoker (fi nding) [facility] Tobacco smoking status Never [facility] Sex Assigned At Female [facility] Functional Status Date Assessment Result Facility 10-06-2022 Functional Status N/A [facility] Clinical Notes 10-11-2022 to 07-20-2024 Note Date [...] Age: 59 y.o. : 1965 Account No.: [id number] Referring physician: Dr. Jarocho Saldaña Chief complaint: RML nodule HPI Aby Madrigal is a 59 y.o. female with hypertension, CAD status post PCI recently in June 2024,, cigarette smoking who is presenting to clinic via telemedicine as a new patient after being referred by Dr. Jarocho Saldaña. Patient reports recent admission to [facility] for hypertensive emergency. This prompted a CT of the chest which was positive for right middle lobe nodule. She then underwent PCI here at [facility] in June. She is currently [...] PFTs on file. CTA chest 04/21/2024 at [facility]: Right middle lobe approximately 1 cm spiculated nodule appreciated Subsequent PET CT 2024 at [facility]: Right middle lobe nodule is faintly [...] with evening meal. 07/17/24 07/17/25 Yes Bijan Licea MD clopidogrel (Plavix) 75 mg tablet Take 1 tablet (75 mg) by mouth in the morning. 07/01/24 07/01/25 Yes Nona Fuchs MD dexAMETHasone (Decadron) 1 mg tablet Take 1 tablet when directed 07/18/24 07/28/24 Yes Feng Christie MD isosorbide mononitrate ER (Imdur) 60 mg 24 hr tablet Take 1 tablet (60 mg) by mouth in the morning for 98 doses. Do not crush or chew. 07/12/24 10/18/24 Yes Tao Nassar MD LORazepam (Ativan) 0.5 mg tablet 1 to 2 tablets Orally QID PRN for 30 days 10/04/17 Yes Historical ProviderMD losartan (Cozaar) 100 mg tablet Take 1 tablet (100 mg) by mouth in the morning. 07/14/24 07/14/25 Yes Bijan Licea MD metFORMIN (Glucophage) 500 mg tablet Take [...] in the morning. 07/01/24 07/31/24 Yes Nona Fuchs MD sennosides-docusate sodium (Mikala-Colace) 8.6-50 mg tablet Take 1 tablet by mouth if needed each day for constipation. 07/12/24 08/11/24 Yes Tao Nassar MD spironolactone (Aldactone) 25 mg tablet Take 1 tablet (25 mg) by mouth in the morning for 98 doses. Do not start before July 13, 2024. 07/13/24 10/19/24 Yes Tao Nassar MD carvedilol (Coreg) 25 mg tablet Take 1 tablet (25 mg) by mouth with breakfast and with evening meal. 07/01/24 07/17/24 Nona Fuchs MD cloNIDine (Catapres) 0.1 mg tablet Take 1 tablet (0.1 mg) by mouth two times daily. 07/01/24 07/18/24 Nona Fuchs MD Lasix 20 mg tablet Take 20 mg by mouth in the morning. 07/18/24 Historical Provider, losartan (Cozaar) 100 mg tablet Take 1 tablet (100 mg) by mouth in the morning. 07/10/24 07/14/24 Bijan Licea MD Social history: reports that she quit smoking about 2 years ago. Her smoking use included cigarettes. She has a 45.00 pack-year smoking history. She has never used smokeless tobacco. She reports that she does not currently use alcohol. She reports (more content not included)... [facility] 07-18-2024 Note REASON FOR VISIT + H PI: Aby Madrigal is a 59 y.o. female with CAD (PCI of LAD Jun 2024), HTN, TIA, panic attacks, SURESH, GERD, T2DM, and dyslipidemia who is being seen today for initial consultation at the request of Meseret Mac MD for evaluation of left adrenal mass. The patient's primary care provider is Kendra Moran MD. She is accompanied by her son. Clinical History Summary: - Pertinent Family/Social History: 45+ pack yr smoking hx, quit age 57. Brother and sister with HTN (dx as adults). No known fam hx of early CAD. - dx with HTN age 49, initially controlled with metoprolol - CT A/P Jun 2019 in [place], [place] performed for abd pain, incidentally detected [...] Rfl: carvedilol (C (more content not included)... 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 Resides at home alone. Discharge plan is home. [facility] 07-18-2024 Note Patient sent to ED f or hypotension and dizziness/lightheadedness [facility] 07-12-2024 Note Hospital Medicine Discharge Summary Final Discharge Diagnosis: NSTEMI Admission Diagnosis: Hypokalemia [E87.6] NSTEMI (non-ST elevated myocardial infarction) (CMS/HCC) [I21.4] Hypertensive urgency [I16.0] Adenoma of left adrenal gland [D35.02] Resistant hypertension [I1A.0] Atherosclerosis of lovelock coronary artery of lovelock heart without angina pectoris [I25.10] Coronary artery disease involving lovelock coronary artery of lovelock heart with unstable angina pectoris (CMS/HCC) [I25.110] Type 2 diabetes mellitus without complication, without long-term current use of insulin (CMS/HCC) [E11.9] Hospital course: 59yoF with CAD s/p LAD SARKIS 11 days ago who was admitted to [facility] on 07/11 for chest pain. patient initially presented to [facility] for uncomfortable feeling in her chest and was found to have elevated troponins and new ischemic changes on EKG. Infusion and cardiology was consulted transferred to [facility] for further evaluation. Initially the patient had blood pressures up to 192/65 for which home medications were restarted. Troponins at [facility] were negative and there were no EKG [...] Center 07/18/2024 8:20 AM Feng Christie MD [facility] ENDOCR [facility] 07/20/2024 1:00 PM Richa Viramontes MD [facility] ONC [facility] 09/05/2024 1:00 PM Bijan Licea MD [facility] Your medication list START taking these [...] Your Medications These medications were sent to [facility]/pharmacy #[id number] [place], [place] - [address] [facility] [address] [facility] [address] isosorbide mononitrate ER 60 mg 24 hr [...] activity In process (more content not included)... [facility] 07-11-2024 Note 07/11/24 4218 Financial Resource Strain How hard is it [...] than 3 How often do you attend episcopal or moravian services? 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 Referral Reason Psychosocial assessment Patient Information Primary Caregiver Self Accompanied by/Relationship Daughter (Rosita); Fgzufqyp-zi-mcm (Yesy) Activities of Daily Living Assistive Device Not applicable Living Arrangement (Current/Prior to Hospitalization) Private residence (Lives at home by herself) Ambulation Independent Dressing Independent Feeding Independent Behavior Oriented (A&Ox4) Communication Can write;Talks;Understands speaking;Understands [place] Citizen;Reads Income Information Income Source Unemployed (receives survivor benefits) Discharge Planning Support Systems Children;Family members (daughter, qdsjwsmy-tt-koa, son) Type of Residence Private residence Will patient need Precert for Post Acute needs? No Patient's goal for discharge Home Does the patient need discharge transport arranged? No Completed social work assessment and SDoH screening. Patient was A&Ox4 at this time. Patient's daughter, Rosita, and patient's lxmayibq-vu-ohe, Yesy, were currently present at bedside. Patient reported that she lives at home by herself and she identified her support system as her daughter, Rosita, her pfbzemsl-gl-pcv, Yesy, and her son, Elie. Patient endorsed [...] any alcohol consumption or recreational drug use. [facility] 07-11-2024 Note Hospital Medicine History and Physical 07/11/2024 12:19 PM THE HOSPITALIST TEAM PREFERS TO USE [employer] FOR COMMUNICATION 7AM-7PM. IF I DO NOT RESPOND WITHIN 15 MINUTES, PLEASE PAGE ME/CALL THROUGH THE PHOTOGRAPHER PORTRAIT. FROM 7PM-7AM, PLEASE PAGE [phone](COVR) Chief Complaint Chief Complaint Patient presents with [...] s/p stent placement 11 days ago at [facility] presented to ER as a transfer from [facility] for NSTEMI. Patient states that last [...] Noted Hypokalemia 07/11/2024 Coronary artery disease involving lovelock coronary artery of lovelock heart with unstable angina pectoris ([facility] 07/11/2024 Anxiety 06/30/2024 Type 2 diabetes mellitus without complication, without long-term current use of insulin ([facility]) 06/30/2024 Chest pain 06/30/2024 Elevated troponin 06/30/2024 Hypertensive urgency 06/30/2024 Hypomagnesemia 06/30/2024 QURESHI (dyspnea on exertion) 05/26/2024 Atherosclerosis of lovelock coronary artery of lovelock heart without angina pectoris 05/26/2024 Hyperlipidemia 05/26/2024 Murmur, heart 05/26/2024 Sepsis ([facility]) 07/14/2019 BV (bacterial vaginosis) 10/18/2017 GERD (gastroesophageal reflux disease) 10/18/2017 Essential hypertension 10/18/2017 TIA (transient ischemic attack) 10/18/2017 NSTEMI (non-ST elevated myocardial infarction) ([facility]) 06/29/2024 Assessment and Plan NSTEMI CAD, s/p [...] for GI prophylaxis (more content not included)... [facility] 07-10-2024 Note [facility] Note Reason for cardiology [...] Take 1 tablet (more content not included)... [facility] 07-01-2024 Note Hospital Medicine Discharge Summary Final [...] hypertension, IBS presents a direct mission from [facility] with a chief complaint of chest [...] seen on her EKG. She went to [facility] for the symptoms. Labs were completed [...] on a heparin drip and transferred to [facility] for likely cardiac cath. # [...] - Continue metformin. Dear Dr. Lidia MD, Aby is advised to follow up with you within 1-2 weeks. Items to follow up in ambulatory setting: None Follow-up with: Cardiology and Nephrology Scheduled appointments: Future Appointments Date Time Provider Department Center 07/10/2024 2:20 PM Bijan Licea MD [facility] Your medication list START taking these [...] Your Medications These medications were sent to [facility]/pharmacy #[id number] [place], [place] - [address] [address] carvedilol 25 mg tablet cloNIDine 0.1 mg tablet clopidogrel 75 mg tablet rosuvastatin 40 mg tablet Aby is allergic to lisinopril, norvasc [amlodipine], and xanax [alprazolam]. Disposition: Home or Self Care () Discharge Condition: Stable Code Status: Full Code Diagnostic Results Hematology: Results from last 7 days Lab Units 07/01/24 0606/30/24 0718 06/29/24 2344 WBC AUTO 10*3/uL 7.04 7.41 8.58 HEMOGLOBIN g/dL 12.4 11.5* 11.8* HEMATOCRIT % 38.6 36.7 35.9* MCV fL 83.7 85.7 82.7 PLATELETS AUTO 10*3/uL 238 243 233 INR -- -- 0.99 Chemistry: Results from last 7 days Lab Units 07/01/24 0606/30/24 0718 06/29/24 2344 SODIUM mmol/L 141 143 [...] days Lab Units (more content not included)... [facility] 07-01-2024 Note [facility] CARDIOLOGY INPAT IENT PROGRESS NOTE Reason for follow up: NSTEMI Subjective Aby Madrigal, a 59 y.o. female patient, is transferred from [facility] for continuity of care. Patient reports that 3 days ago, she woke up in the mid of the night with indigestion, and a feeling fullness, but no pressure like chest pain. She presented to [facility], where she was found to be [...] 0.56 06/29/2024 E (more content not included)... [facility] 06-30-2024 Note Patient: Aby patelbaugh Procedure Information Date/Time: 06/30/24 1600 Procedure: Coronary angiography (Bilateral) Location: [facility] UNARMED SECURITY GUARD 3 / [facility] (Cath) Providers: Brunilda Cuellar MD [...] Plan discussed with attending. 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 [facility] 06-30-2024 Note 06/30/24 1431 Admission Assessment Questions Verify insurance with patient Yes Do you understand medical disease or what brought you into the hospital? Yes Who is your current PCP? Kendra Moran MD Can I schedule a follow up appointment for you at the time of discharge? Yes Do you understand why you are taking your current medications? Yes Are you taking your medications as prescribed? Yes Did patient provide teach back? No Pharmacy Bedside Delivery Status Not Interested Does the patient have a caser assigned to them through their insurance? [...] to send link and activate MyChart? No [facility] 06-30-2024 Note Case was discussed w ith the SALVADOR on 06/29/2024. I agree with the history, physical, assessment, and plan of care. I discussed the findings and therapeutic plan. I agree with the documentation, except for any updates below. Maurice Nogueira MD [facility] 06-30-2024 Note Hospital Medicine History and Physical 06/30/2024 1:15 AM THE HOSPITALIST TEAM PREFERS TO USE [employer] CHAT FOR COMMUNICATION 7AM-7PM. IF I DO NOT RESPOND WITHIN 15 MINUTES, PLEASE PAGE ME/CALL THROUGH THE PHOTOGRAPHER PORTRAIT. FROM 7PM-7AM, PLEASE PAGE [phone](COVR) Chief Complaint Direct admission from [facility] with CP History of Present Illness Aby Madrigal is an 59 y.o. female who came from home with past medical history of anxiety, DM2, hypertension, IBS presents a direct mission from [facility] with a chief complaint of chest [...] seen on her EKG. She went to [facility] for the symptoms. Labs were completed [...] on a heparin drip and transferred to [facility] for likely cardiac cath. Review [...] complication, without long-term current use of insulin ([facility]) 06/30/2024 Chest pain 06/30/2024 Elevated troponin 06/30/2024 Hypertensive urgency 06/30/2024 QURESHI (dyspnea on exertion) 05/26/2024 Atherosclerosis of lovelock coronary artery of lovelock heart without angina pectoris 05/26/2024 Hyperlipidemia 05/26/2024 Murmur, heart 05/26/2024 Sepsis (CMS/HCC) 07/14/2019 BV (bacterial vaginosis) 10/18/2017 GERD (gastroesophageal reflux disease) 10/18/2017 Essential hypertension 10/18/2017 TIA (transient ischemic attack) 10/18/2017 Assessment and Plan Aby Madrigal is an 59 y.o. female who came from home with past medical history of anxiety, DM2, hypertension, IBS presents a direct mission from [facility] with a chief complaint of chest pain. #Chest pain #Elevated troponin Troponin 0.1, will continue to trend -Patient continues to have mild chest discomfort upon arrival -Continue heparin drip -CXR negative for acute process at OSH -EKG showing normal sinus rhythm -N.p.o. for possible right and left cardiac cath in a.m. -Patient with new diastolic dysfunction on echoc (more content not included)... [facility] 06-21-2024 Note [place] [facility] Subjective Aby Madrigal is a 59 y.o. year old female patient being seen for follow up [facility] ED per Dr. Moran. She has not had the echo done yet that was ordered by Dr. Licea. Patient states Dr. Moran did not like the last ECG she had in the ED. When she saw Dr. Licea on 05/26, metoprolol was switched to carvedilol. Patient states she was taking both beta blockers at the same time, as she was unaware to stop metoprolol. She didn't like the way the carvedilol made her feel so she stopped it. Dr. Licea also wanted her to stop the PM dose of clonidine, but Dr. Moran just doubled it yesterday to 0.2mg bid per patient. She denies chest pain, palpitations, and lightheadedness/syncope. She has intermittent SOB at rest, which she thinks is due to quality of air. C/o headaches. Patient Active Problem List Diagnosis BV (bacterial vaginosis) GERD (gastroesophageal reflux disease) Essential hypertension Sepsis (CMS/HCC) TIA (transient ischemic attack) QURESHI (dyspnea on exertion) Atherosclerosis of lovelock coronary artery of lovelock heart without angina pectoris Hyperlipidemia Murmur, heart [...] Judgment: Judgment no (more content not included)... [facility] 05-26-2024 Note [facility] Note Reason for cardiology consult: New patient here to establish care. Ref from Dr. Moran for abnormal stress test. Chief Complaint: Dyspnea [...] PSYCH: appropriate mood, (more content not included)... [facility] 11-25-2022 Note OPERATIVE NOTE OPERATION DATE: 11/25/2022 PREOPERATIVE DIAGNOSIS: Colorectal screening. POSTOPERATIVE DIAGNOSIS: Normal colonoscopy to cecum. PROCEDURE: Colonoscopy to cecum. SURGEON: Umm Landon M.D. ANESTHESIA: Monitored anesthesia care. ESTIMATED BLOOD [...] should be in 10 years. CC: Kendra Moran M.D. [facility] 10-11-2022 Note Chief Complaint consultation for colonoscopy and skin lesions HPI Staff 57 year old female presents on consultation from Dr. Moran for screening colonoscopy and evaluation of skin [...] 1 tab(s), Oral, (more content not included)... [facility] Comment on above: Result Comment: Elec tronically Signed By: DIPESH BUCKNER, Umm Hogan\Date and Time Signed: 10/11/22 11:01 EST Evaluation + Plan note No data available for this section [facility] Discharge instructions No data available for this section General [facility] Progress note No data available for this section [facility] Summary Purpose Family History No Family History Records FoundNo Family History Records FoundNo Family History Records FoundNo Family History Records Found Advance Directives No Advanced Directives Records FoundNo Advanced Directives Records FoundNo Advanced Directives Records FoundNo Advanced Directives Records Found Additional Source Comments INFORMATION SOURCE (unrecogn ized section and content) DATE CREATED AUTHOR 12/17/2021 [facility] DATE CREATED AUTHOR AUTHOR'S ORGANIZ ATION 12/16/2022 [facility] DATE CREATED AUTHOR AUTHOR'S ORGANIZ ATION 03/26/2023 [facility] DATE CREATED AUTHOR AUTHOR'S ORGANIZ ATION 08/12/2024 [facility] Patient Care team informatio n (unrecognized section and content) Personnel Name: Kendra Moran MD Address: Address: [address] [place] [address] Personnel Name: Kendra Moran MD Address: Address: [address] [place] [address] FOR RECORDS PERTAINING TO PATIENTS WHO ARE [...] BE BASED ON THE PRIMARY CLINICAL RECORDS. [facility] [employer] [facility]. provides no warranty or guarantee of the accuracy or completeness of information in this document.
--- NOTE | 2024-08-17 16:13 | XR_ITS ---
The [address] [address] Patient Name: MILAN RASMUSSEN MRN: [id number] date: 1965 Sex: F Assigned Patient Location: ER Current Patient Location: ER Accession/Order Number: [id number] Exam Date: 08/17/2024 16:18 Report Date: 08/17/2024 16:37 At the request of: JOSE BETANCUR Procedure: XR chest 1V PORTABLE CHEST X-RAY. INDICATION: Cough. COMPARISON: 07/31/2024 TECHNIQUE: Single AP portable chest radiograph. FINDINGS: TUBES AND LINES: None. LUNGS: There is a left basilar focal opacity. PLEURA: No effusions or pneumothorax. HEART AND MEDIASTINUM: Within normal limits for portable technique. OSSEOUS STRUCTURES: No acute abnormality. XR/XR chest 1V IMPRESSION: Left basilar focal opacity which may represent atelectasis or pneumonia. Correlate clinically. Electronically authenticated by: ALEA BASHIR Date: 08/17/2024 16:37
--- NOTE | 2024-08-17 16:14 | ED.URI1 ---
HPI - URI/Sore Throat General Chief Complaint: Upper Respiratory Infection Stated Complaint: URTI Time Seen by Provider: 08/17/24 15:58 Source: patient History of Present Illness HPI Narrative: 59-year-old female presents for cough and feeling short of breath. She has been this way for 2 days and her cough is nonproductive. No fever but she felt warm at home. No vomiting or diarrhea. No known ill contacts. Related Data Home Medications ?Medication ?Instructions ?Recorded ?Confirmed metformin 500 mg tablet 500 mg PO BID 04/21/24 07/31/24 aspirin 81 mg capsule 81 mg PO DAILY 04/22/24 07/31/24 clopidogrel 75 mg tablet 75 mg PO DAILY 07/01/24 07/31/24 pantoprazole 40 mg tablet,delayed 40 mg PO .ACB 07/20/24 07/31/24 release (Protonix) sennosides 8.6 mg-docusate sodium 1 tab-cap PO DAILY PRN constipation 07/20/24 07/28/24 50 mg tablet (Colace 2-In-1) losartan 100 mg tablet 100 mg PO DAILY 07/24/24 07/28/24 quetiapine 100 mg tablet (Seroquel) 50 mg PO .QHS 07/24/24 07/31/24 rosuvastatin 40 mg tablet 40 mg PO DAILY 07/24/24 07/31/24 isosorbide mononitrate 60 mg 60 mg PO DAILY 07/31/24 07/31/24 tablet,extended release 24 hr lorazepam 1 mg tablet (Ativan) 1 mg PO Q6H PRN anxiety 07/31/24 07/31/24 Previous Rx's ?Medication ?Instructions ?Recorded canagliflozin 100 mg tablet 100 mg PO QD #30 tabs 07/27/24 (Invokana) carvedilol 25 mg tablet 25 mg PO TID #90 tabs 07/27/24 hydralazine 50 mg tablet 50 mg PO TID #90 tabs 07/27/24 hydrochlorothiazide 25 mg tablet 25 mg PO QD #30 tabs 07/27/24 benzonatate 100 mg capsule 100 mg PO TID PRN cough #20 caps 08/17/24 doxycycline hyclate 100 mg capsule 100 mg PO BID 10 days #20 caps 08/17/24 Allergies Allergy/AdvReac Type Severity Reaction Status Date / Time amlodipine Allergy Mild Headache Verified 07/20/24 16:34 alprazolam [From Xanax] AdvReac Severe Watery Eye Verified 07/20/24 16:34 Review of Systems ROS Narrative A ten point review of systems is negative except as noted above. [facility] Medical History (Updated 08/17/24 @ 16:49 by Juancarlos Long MD) Chest pain ?R07.9 - Chest pain, unspecified (ICD-10) CAD (coronary artery disease) ?I25.10 - Atherosclerotic heart disease of [place] coronary artery without angina pectoris (ICD-10) Hypertensive urgency ?I16.0 - Hypertensive urgency (ICD-10) HTN (hypertension) ?I10 - Essential (primary) hypertension (ICD-10) Hypertensive urgency ?I16.0 - Hypertensive urgency (ICD-10) Chest pain ?R07.9 - Chest pain, unspecified (ICD-10) Anxiety ?F41.9 - Anxiety disorder, unspecified (ICD-10) HTN (hypertension) ?I10 - Essential (primary) hypertension (ICD-10) Hypokalemia ?E87.6 - Hypokalemia (ICD-10) Hypertension, uncontrolled ?I10 - Essential (primary) hypertension (ICD-10) Chest pain ?R07.9 - Chest pain, unspecified (ICD-10) NSTEMI (non-ST elevated myocardial infarction) ?I21.4 - Non-ST elevation (NSTEMI) myocardial infarction (ICD-10) Shortness of breath ?R06.02 - Shortness of breath (ICD-10) Headache ?R51.9 - Headache, unspecified (ICD-10) Elevated d-dimer ?R79.89 - Other specified abnormal findings of blood chemistry (ICD-10) Hypertensive emergency ?I16.1 - Hypertensive emergency (ICD-10) Uncontrolled hypertension ?I10 - Essential (primary) hypertension (ICD-10) Irritable bowel syndrome ?K58.9 - Irritable bowel syndrome without diarrhea (ICD-10) H/O nephrolithotomy with removal of calculi ?Z98.890 - Other specified postprocedural states (ICD-10) ?Z87.442 - Personal history of urinary calculi (ICD-10) Kidney stone ?N20.0 - Calculus of kidney (ICD-10) Sepsis ?A41.9 - Sepsis, unspecified organism (ICD-10) H/O angiography ?Z92.89 - Personal history of other medical treatment (ICD-10) Lung nodule ?R91.1 - Solitary pulmonary nodule (ICD-10) Anxiety ?F41.9 - Anxiety disorder, unspecified (ICD-10) HTN (hypertension) ?I10 - Essential (primary) hypertension (ICD-10) Diabetes ?E11.9 - Type 2 diabetes mellitus without complications (ICD-10) TIA (transient ischemic attack) ?G45.9 - Transient cerebral ischemic attack, unspecified (ICD-10) Surgical History H/O heart artery stent ?Z95.5 - Presence of coronary angioplasty implant and graft (ICD-10) History of appendectomy ?Z90.49 - Acquired absence of other specified parts of digestive tract (ICD-10) H/O tubal ligation ?Z98.51 - Tubal ligation status (ICD-10) History of cholecystectomy ?Z90.49 - Acquired absence of other specified parts of digestive tract (ICD-10) Family History (Updated 04/22/24 @ 01:15 by Stalin Kevin) Mother Family history of cancer Father MVA (motor vehicle accident) Brother Family history of stroke Social History (Updated 04/22/24 @ 01:26 by Stalin Kevin) Within the past year, how often did you have a drink containing alcohol: never Within the past year, how often did you have six or more drinks on one occasion: never Score interpretation: A score less than 3 is consistent with normal alcohol consumption. Smoking status: Former smoker Second hand tobacco smoke exposure: No Non-prescribed substance use: denies use Previous occupational history: no Known occupational exposures/hazards: No Highest level of school completed/degree received: high school graduate Do you want help with school or training: No Are you now , , , , never or living with a partner: In a typical week, how many times do you talk on the telephone with family, friends, or neighbors: 3 or more times per week How often do you get together with friends or relatives: 3 or more times per week How often do you attend hindu or sabianist services: never Do you belong to any clubs or organizations such as hindu groups unions, fraternal or athletic groups, or school groups: no Total score: 1 Score interpretation: A score of less than or equal to 1 indicates the most socially isolated. Little interest or pleasure in doing things: not at all Feeling down, depressed, or hopeless: not at all Feel stressed/tense/nervous/anxious/difficulty sleeping: not at all Do you think of yourself as: straight/heterosexual Gender Identity: female Exam Narrative Exam Narrative: Nurses note and vital signs reviewed and patient is not hypoxic. General: The patient appears in no apparent distress. Skin: Warm, dry, no pallor noted. There is no rash noted. Head: Normocephalic, atraumatic Eye: Normal conjunctiva, no drainage Ears, Nose, Mouth, and Throat: oral mucosa is moist. Nares patent. Cardiovascular: Regular Rate and Rhythm Respiratory: Good air movement present. No rales or rhonchi noted Back: non-tender GI: Soft and nontender Musculoskeletal: The patient has no evidence of calf tenderness, no pitting edema, symmetrical pulses noted bilaterally Neurological: A&O, normal speech Psychiatric: Cooperative Constitutional Vital Signs, click to edit/add: Last Vital Signs Temp 99.0 F 08/17/24 15:58 Pulse 87 08/17/24 15:58 Resp 18 08/17/24 15:58 BP 147/67 H 08/17/24 15:58 Pulse Ox 95 08/17/24 15:58 O2 Del Method Room Air 08/17/24 15:58 Course Vital Signs Vital signs: Vital Signs Temperature 99.0 F 08/17/24 15:58 Pulse Rate 87 08/17/24 15:58 Respiratory Rate 18 08/17/24 15:58 Blood Pressure 147/67 H 08/17/24 15:58 Pulse Oximetry 95 08/17/24 15:58 Oxygen Delivery Method Room Air 08/17/24 15:58 Temperature 99.0 F 08/17/24 15:58 Pulse Rate 87 08/17/24 15:58 Respiratory Rate 18 08/17/24 15:58 Blood Pressure 147/67 H 08/17/24 15:58 Pulse Oximetry 95 08/17/24 15:58 Oxygen Delivery Method Room Air 08/17/24 15:58 MDM - URI/Sore Throat MDM Narrative Medical decision making narrative: COVID and influenza test are negative. Chest x-ray suggest small area of pneumonia. She is on Seroquel so we will avoid Zithromax and she was prescribed doxycycline. Treatment diagnosis and follow-up were discussed with the patient. Differential Diagnosis Differential diagnosis: Likely upper respiratory infection, viral infection and other (COVID, pneumonia) Lab Data Attestation: I reviewed the patient's lab results. Labs: Lab Results 08/17/24 Range/Units 16:01 Influenza Type A Ag Negative Influenza Type B Ag Negative SARS-CoV-2 Ag (CV2AG) Negative (NEGATIVE) Imaging Data Chest x-ray: Radiologist's impression: ITS Impressions Chest X-Ray 08/17/24 16:13 IMPRESSION: Left basilar focal opacity which may represent atelectasis or pneumonia. Correlate clinically. Electronically authenticated by: ALEA BASHIR Date: 08/17/2024 16:37 Discharge Plan Discharge Chief Complaint: Upper Respiratory Infection Clinical Impression: Pneumonia Patient Disposition: Home, Self-Care Time of Disposition Decision: 16:49 Condition: Good Mode of Transportation: Private Vehicle Prescriptions / Home Meds: New benzonatate 100 mg capsule 100 mg PO TID PRN (Reason: cough) Qty: 20 0RF doxycycline hyclate 100 mg capsule 100 mg PO BID 10 Days Qty: 20 0RF No Action metformin 500 mg tablet 500 mg PO BID aspirin 81 mg capsule 81 mg PO DAILY sennosides-docusate sodium [Colace 2-In-1] 8.6-50 mg tablet 1 tab-cap PO DAILY PRN (Reason: constipation) pantoprazole [Protonix] 40 mg tablet,delayed release (DR/EC) 40 mg PO .ACB losartan 100 mg tablet 100 mg PO DAILY rosuvastatin 40 mg tablet 40 mg PO DAILY quetiapine [Seroquel] 100 mg tablet 50 mg PO .QHS Rx Instructions: AT HS carvedilol 25 mg Tablet 25 mg PO TID Qty: 90 11RF hydrochlorothiazide 25 mg Tablet 25 mg PO QD Qty: 30 11RF Invokana 100 mg Tablet 100 mg PO QD Qty: 30 11RF hydralazine 50 mg tablet 50 mg PO TID Qty: 90 11RF isosorbide mononitrate 60 mg Tablet Extended Release 24 Hr 60 mg PO DAILY lorazepam [Ativan] 1 mg tablet 1 mg PO Q6H PRN (Reason: anxiety) Rx Instructions: 0.5 MG 1-2 TABS clopidogrel 75 mg tablet 75 mg PO DAILY Print Language: Togolese Instructions: Community Acquired Pneumonia (ED) Referrals: Carlito Murillo MD [Primary Care Provider] - 1 week
[2024-08-17 16:25] LABS: Influenza Virus A Antigen Negative; Influenza Virus B Antigen Negative; Internal Control Within Normal Limits; SARS-CoV-2 Ag NEGATIVE (NEGATIVE)
[2024-08-17 16:58] VITALS: BP 142/92; PULSE 76; O2SAT 96
== END 2024-08-17 16:58 | disposition home or self-care (01) ==
PROVIDERS: Emergency Provider Emergency Medicine; PCP Family Medicine
DX: J18.9 Pneumonia, unspecified organism (principal); R06.02 Shortness of breath; Z87.891 Personal history of nicotine dependence
CPT/HCPCS: 71045; 87804; 87811; 99285

== ENCOUNTER 2024-09-15 22:02 | Emergency (ER) | payer MEDICAID, SELFPAY ==
--- OUTSIDE RECORDS SUMMARY | 2024-09-15 22:07 | XMS_ITS | CCD ---
Author Organization [facility]ini[facility] Care Team Providers Care Signal Mechanic Name Role Phone Kendra Moran Primary Care Physician [phone] Umm LANDON Attending Unavailable NILL, Umm Michael [...] Unavailable NILL ., DR SALOMON Consulting Unavailable DIPITFARAT Consulting Unavailable MICHAEL II, BASILIA Consulting Unavailable [...] HOY ., DR GARDNER Primary Care Unavailable [place], DR ADELIA Medrano Consulting Unavailable FELECIA CORDOBA Referring Unavailable HOY KENDRA Referring Unavailable HORANI, NONA Admitting Unavailable HORANI, NONA Attending Unavailable HORANI, NONA Referring Unavailable HORANI, NONA Referring Unavailable RICHA VIRAMONTES Attending Unavailable JOSE BETANCUR Referring Unavailable HORANI, NONA Admitting Unavailable TAO NASSAR Attending Unavailable HERMINIA JULIAN Attending Unavailable NONA FUCHS Referring Unavailable HERMINIA JULIAN Referring Unavailable FEDERICA ANDERSON Referring Unavailable GOMEZ SPENCE Attending Unavailable NONA FUCHS Referring Unavailable BIJAN LICEA Attending Unavailable RICHA VIRAMONTES Referring Unavailable JOFENG STARKEY Referring Unavailable FENG CHRISTIE Attending Unavailable MESERET MAC Referring Unavailable BIJAN LICEA Attending Unavailable FENG CHRISTIE Attending Unavailable GOMEZ SPENCE Attending Unavailable FEDERICA ANDERSON Referring Unavailable Allergies Allergy Classification Reported Allergen(s) Allergy Type Date of Onset Reaction(s) Facility (1 source) No Known Medication Allergies; 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: [No Known Medication Allergies] Propensity to adverse reactions (disorder) [facility] Repository (1 source) ALPRAZolam; 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: [ALPRAZOLAM] Drug Allergy [address] [place] [address] Repository (1 source) amLODIPine; 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: [AMLODIPINE] Drug Allergy [address] [place] [address] Repository (1 source) Lisinopril; 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: [LISINOPRIL] Drug Allergy [address] [place] [address] Repository Medications Current Medications Medication Drug Class(es) [...] Coronary arteriosclerosis; 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: [Atherosclerotic heart disease of [place] coronary artery without angina pectoris] Onset: 3 09-30-2022 Chronic Coronary atherosclerosis and other heart disease (2 sources) Presence of coronary angioplasty implant and graft; 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: [Presence of coronary angioplasty implant and graft] Onset: 4 Episodic Diabetes mellitus without complication (2 sources) Type [...] EXPOS COVID-19] Onset: 3 Unclassified (1 source) Obesity, class 2; 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: [Obesity, class 2] Onset: 4 Unclassified (1 source) Resistant hypertension; 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: [Resistant hypertension] Onset: 4 Past or Other Problems Problem Classification Problem Date Documented Da te Episodic/Chronic Calculus of urinary tract (5 sources) History of calculus of kidney; 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: [Kidney stone] Onset: 11-26-2022 12-20-2019 Episodic Other aftercare (1 source) 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; 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: [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] Onset: 11-26-2022 Episodic Other aftercare (1 source) Other fpc (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 therapy; 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: [OTH MCFP CURRENT [...] Drug therapy finding 09-30-2022 Unclassified (1 source) Obesity, class 2; 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: [Obesity, class 2] Onset: 08-29-2024 Unclassified (1 source) Resistant hypertension; 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: [Resistant hypertension] Onset: 07-11-2024 Results Test Name Value Interpretation Reference Range Facility Office Visiton 09-04-2024 Follow-up visit [id number] Aby Madrigal 1965 F Date Provider Department Center 09/04/2024 GOMEZ KENDALL RIAZ [place] Family History Problem Relation Age of Onset Lung cancer Mother No Known Problems Father Lung cancer Sister Family Status - Relation Status Age at Mother Father Sister Level of Service:76573 [place] OFFICE/OUTPATIENT ESTABLISHED MOD MDM 30 MIN Normal [facility] ALDOSTERONEon 08-29-2024 ALDOSTERONE (NG/DL) IN SER/PLAS 13.0 ng/dL Normal [facility] Comment on above: Result Comment: INTE RPRETIVE [...] reference intervals for this test in the [facility] Directory ([employer]). Performed By: [employer] [address] [place] [address] Coutierier: Navneet Simeon MD, PhD CLIA Number: [id number] Performed By: #### L [id number] #### [facility] ([facility]) [address] [place] [address] Ron 08-29-2024 ALT [Catalytic activity/Vol] 25 U/L Normal 7-52 [facility] Comment on above: Performed By: #### L [id number] ####[facility] ([facility])[address] [place] [address] Riki 08-29-2024 AST [Catalytic activity/Vol] 21 U/L Normal 13-39 [facility] Comment on above: Performed By: #### L [id number] #### [facility] ([facility]) [address] [place] [address] BASIC METABOLIC PANELon 10-0 Anion gap [Moles/Vol] 12 mmol/L Normal 7-20 [facility] Comment on above: Performed By: #### L [id number] ####[facility] ([facility])[address] [place] [address] Calcium [Mass/Vol] 9.3 mg/dL Normal 8.6-10.3 [facility] Comment on above: Performed By: #### L [id number] ####[facility] ([facility])[address] [place] [address] Chloride [Moles/Vol] 105 mmol/L Normal 98-107 [facility] Comment on above: Performed By: #### L [id number] ####[facility] ([facility])[address] [place] [address] CO2 [Moles/Vol] 28 mmol/L Normal 21-31 [facility] Comment on above: Performed By: #### L [id number] ####[facility] ([facility])[address] [place] [address] Creatinine [Mass/Vol] 0.95 mg/dL Normal 0.60-1.20 [facility] Comment on above: Performed By: #### L [id number] ####[facility] ([facility])[address] [place] [address] GLOMERULAR FILTRATION RATE ML/MIN/1.73 SQ M.PREDICTED 68.6 mL/min/1.73m*2 Normal >60.0 [facility] Comment on above: Result Comment: The [facility]???s estimated glomerular filtration rate (eGFR) will no [...] of individuals. Performed By: #### L [id number] ####[facility] ([facility])[address] [place] [address] Glucose [Mass/Vol] 99 mg/dL Normal 70-100 [facility] Comment on above: Performed By: #### L [id number] ####[facility] [place] [address] Potassium [Moles/Vol] 3.6 mmol/L Normal 3.5-5.1 [facility] Comment on above: Performed By: #### L [id number] ####[facility] ([facility])[address] [place] [address] Sodium [Moles/Vol] 141 mmol/L Normal 136-145 [facility] Comment on above: Performed By: #### L [id number] ####[facility] ([facility])[address] [place] [address] Urea nitrogen [Mass/Vol] 19 mg/dL Normal 7-25 [facility] Comment on above: Performed By: #### L [id number] ####[facility] ([facility])[address] [place] [address] UREA NITROGEN/CREATININE (MASS RATIO) IN SER/PLAS 20.0 Normal [facility] Comment on above: Performed By: #### L [id number] ####[facility] ([facility])[address] [place] [address] CORTISOLon 08-29-2024 CORTISOL (UG/DL) IN SER/PLAS 6.1 ug/dL Normal 0-9 [facility] Comment on above: Performed By: #### L [id number] #### [facility] ([facility]) [address] [place] [address] CT ABDOMEN PELVIS W AND WO I V CONTRASTon 08-29-2024 CT ABDOMEN PELVIS W AND WO IV CONTRAST CT ABDOMEN PELVIS W AND WO IV CONTRAST 08/29/2024 4:51 PM CLINICAL INDICATIONS: Resistant hypertension. Left adrenal mass. PROTOCOL: Adrenal protocol CONTRAST: 100 mL of Omnipaque 350 TECHNIQUE: Multidetector CT angiography axial slices of the abdomen and pelvis were obtained with IV contrast. Multiplanar reformats, MIP, and volume rendered 3-D images were generated on a separate workstation and reviewed to further define anatomy and possible pathology. All CT scans at this facility use dose modulation, iterative reconstruction, and/or weight based dosing when appropriate to reduce radiation dose to as low as reasonably achievable. COMPARISON: PET/CT dated 2024; Limited comparison with outside report of CT of the abdomen and pelvis dated 07/14/2019 FINDINGS: LOWER THORAX: Right middle lobe 1.2 cm nodule (2:4), unchanged in size, and previously minimally FDG avid. Mild bilateral subsegmental atelectasis. Coronary and vascular calcifications. LIVER: Normal in size and configuration. No suspicious mass. Fatty liver. BILE DUCTS: No intrahepatic or extrahepatic bile duct dilation. GALLBLADDER: Cholecystectomy PANCREAS: Unremarkable. No main pancreatic duct dilation. SPLEEN: Subcentimeter central hypodensity (2:39), too small to characterize, likely a benign cyst or lymphangioma/hemangiom a. ADRENAL GLANDS: No right adrenal nodule. Unchanged in size left adrenal 2.8 x 2.6 cm nodule with macroscopic fat (2:40-37) and absolute washout of 91%, previously mildly FDG avid. KIDNEYS/URETERS: No hydroureteronephrosis. No suspicious renal mass. Nonobstructive bilateral 2 mm renal stones, for example in the right interpolar lesion (2:63) and left inferior pole (266).Similar asymmetric atrophy of the left kidney. BLADDER: Partially distended. REPRODUCTIVE ORGANS: Hysterectomy. No adnexal mass. BOWEL: No disproportionate dilation of the small or large bowel. The appendix is surgically absent. PERITONEUM/RETROPERITO NEUM: No fluid collection, ascites, or pneumoperitoneum. LYMPH NODES: No abdominal or pelvic lymphadenopathy. VESSELS: No abdominal aortic aneurysm [[id number]]. Atherosclerosis. ABDOMINAL/PELVIC WALL: Small fat-containing umbilical hernia.. BONES: Sclerotic subcentimeter foci within the midline and right-sided sacrum (8:69), previously not FDG avid and likely benign. No suspicious osseous lesions. Scattered osseous degenerative changes. IMPRESSION: Since 06/19/24: 1.Benign left adrenal 2.8 cm adenoma, unchanged in size compared to prior PET. 2.Similar in size right middle lobe 1.2 cm nodule, previously minimally FDG avid, indeterminant and may represent an indolent adenocarcinoma spectrum lesion. Lesion reported on CT dated 07/14/2019 but no images available for comparison. Consider follow-up chest CT in 3 months to ensure stability per Fleischner recommendations as noted below. Pulmonary nodule follow-up recommendation: [[id number]] Solid nodule > 8 mm: - Recommend follow-up CT at 3 months, PET/CT or tissue sampling (biopsy), if indicated within the patients clinical context. * Recommendations do not apply to patients younger than 35 years, immunocompromised patients, or patients with known or suspected malignancy. Based on Fleischner Society Guidelines, Radiology 2017. Electronically signed: Marybeth Maloney Vldtd Invalid Interpretation Code [facility] DEXAMETHASONE LEVELon 2023 DEXAMETHASONE <50.0 Normal [facility] Comment on above: Order Comment: Waive d Testing in the ED is performed under the ED CLIA certificate #[id number]. Result Comment: INTE RPRETIVE INFORMATION: Dexamethasone, Serum or Plasma by LC-MS/MS Adults baseline: Less than 50 ng/dL 8:00 AM draw following 1 mg dexamethasone between 11:00 pm and 12:00 am the previous evenin - 295 ng/dL 8:00 AM draw following 8 mg dexamethasone (4 x 2 mg doses) between 11:00 pm and 12:00 am the previous evenin - 2850 ng/dL This test was developed and its performance characteristics determined by [employer]. It has not been cleared or approved by the US Food and Drug Administration. This test was performed in a CLIA certified laboratory and is intended for clinical purposes. Performed By: [employer] [address] [place] [address] Coutierier: Navneet Simeon MD, PhD CLIA Number: [id number] Performed By: #### L [id number] #### [facility] ([facility]ER) [address] [place] [address] LIPID PANELon 08-29-2024 CHOL/HDL 2.4 mg/dL Normal [facility] Comment on above: Performed By: #### L [id number] #### [facility] (BE[facility]) [address] [place] [address] Cholesterol [Mass/Vol] 80 mg/dL Low 120-200 [facility] Comment on above: Performed By: #### L [id number] #### [facility] ([facility]) [address] [place] [address] Magnesium [Mass/Vol] 96 mg/dL Normal 40-149 [facility] Comment on above: Result Comment: TRIG LYCERIDE REFERENCE RANGE: 20 YEARS AND OLDER CARDIOVASCULAR RISK LESS THAN 150 mg/dL LOW RISK 150 TO 199 mg/dL BORDERLINE RISK 200 mg/dL AND GREATER HIGH RISK Performed By: #### L [id number] #### [facility] ([facility]) [address] [place] [address] Magnesium [Mass/Vol] 28 mg/dL Normal 0-160 [facility] Comment on above: Performed By: #### L [id number] #### [facility] ([facility]) [address] [place] [address] Magnesium [Mass/Vol] 33 mg/dL Normal 23-92 [facility] Comment on above: Performed By: #### L [id number] #### [facility] ([facility]) [address] [place] [address] NON HDL CHOL. (LDL+VLDL) 47 Normal [facility] Comment on above: Performed By: #### L [id number] #### [facility] ([facility]) [address] [place] [address] TOTAL VLDL-C 19 mg/dL Normal 0-40 [facility] Comment on above: Performed By: #### L [id number] #### [facility] ([facility] [address] [place] [address] Labon 08-29-2024 Lab [id number] Aby Madrigal 1965 F Date Provider Department [place] 08/29/2024 2245-[facility] OPD LAB RESOURCE [facility] OPD IN Medical C Family History Problem Relation Age of Onset Lung cancer Mother No Known Problems Father Lung cancer Sister Family Status - Relation Status Age at Mother Father Sister Normal [facility] RENIN ACTIVITYon 08-29-2024 RENIN ACTIVITY <0.1 Normal [facility] Comment on above: Result Comment: INTE RPRETIVE INFORMATION: Renin Activity Adult, Normal sodium diet: Supine ................. 0.2-1.6 ng/mL/hr Upright ................ 0.5-4.0 ng/mL/hr Children, Normal sodium diet, Supine: (1-7 days) ..... 2.0-35.0 ng/mL/hr Cord blood [...] developed and its performance characteristics determined by [employer]. It has not been cleared or approved by the US Food and Drug Administration. This test was performed in a CLIA certified laboratory and is intended for clinical purposes. Performed By: [employer] [address] [place] [address] Coutierier: Navneet Simeon MD, PhD CLIA Number: [id number] Performed By: #### L [id number] ####[employer] ([facility])[address] [place] [address] 36on 08-10-2024 36 Updated patient on Nodify blood test results and plan for f/u CT and appt scheduled for 10/26/24. [facility] Letter (Out)on 08-09-2024 Letter (Out) [id number] Emmababebe,Aby S 1965 F Date Provider Department Center 08/09/2024 None-None [facility] ADMIT None Family History Problem Relation Age of Onset Lung cancer Mother No Known Problems Father Lung cancer Sister Family Status - Relation Status Age at Mother Father Sister [facility] 36on 08-08-2024 36 Called patient over the [...] 03 She thanked me for the call [facility] Orders Onlyon 08-08-2024 Orders Only [id number] Strausbaugh,Aby S 1965 F Date Provider Department Center 08/08/2024 RICHA MERINO ONC NICKI Family History Problem Relation Age of Onset Lung cancer Mother No Known Problems Father Lung cancer Sister Family Status - Relation Status Age at Mother Father Sister [facility] Telephoneon 08-08-2024 Telephone [id number] Strausbaugh,Aby S 1965 F Date Provider Department Center 08/08/2024 FENG SWEENEY [facility] ENDOCR [facility] Family History Problem Relation Age of Onset Lung cancer Mother No Known Problems Father Lung cancer Sister Family Status - Relation Status Age at Mother Father Sister Normal [facility] Telemedicineon 07-20-2024 Telemedicine [id number] Strausbaugh,Aby S 1965 F Date Provider Department Center 07/20/2024 RICHA MERINO ONC NICKI Family History Problem Relation Age of Onset Lung cancer Mother No Known Problems Father Lung cancer Sister Family Status - Relation Status Age at Mother Father Sister Level of Service:[id number] [place] PHYS/QHP TELEPHONE EVALUATION 21-30 MIN (GC) Reason for Visit and Comments: 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 CT CHEST 04-21-24- PET 06-21-24 Films requested nw- 07-18-24 HAVING HARD TIME GETTING FILMS [place]. Ginny at [facility] ([phone] direct line) is working on sending them. CHECK [facility] FOR FILMS PLEASE Normal [facility] 37on 07-18-2024 37 It was great to [...] lab work done at one of these [facility] Lab Sites The results will then come straight to me I appreciate it [facility] [address], [place] Hours Wednesday - Wednesday 8 AM - 4PM (Closed 12 - 12:30 PM daily) Phone: [facility] [address] [facility] Hours: Wednesday - Juan 6 AM - 5 PM Saturday: 7 AM - 2 PM Phone: [address] [place] Hours: Wednesday - Wednesday 7 AM - 3:30 PM Phone: [facility] [address] [place] Hours: Wednesday - Wednesday 7 AM - 5:30 PM Phone: [facility] [address] Hours: Wednesday - Wednesday 8 AM - 4:30 PM Phone: [facility] EDNURSon 07-18-2024 EDNURS ADR and relevant inf o reported to [facility] in pharmacy d/t safety net being down. Viet Kelly RN 07/18/24 [id number] [facility] EDNURS SENT FROM MD OFFICE RE: LOW BP; RECENT DC FROM [facility] FOR SAME [facility] EDPROVon 07-18-2024 EDPROV HPI Chief Complaint Patient presents with Hypotension Initial assessment completed by Dr Julian at 09. Aby Madrigal is a 59 [...] new meds yesterday. History provided by: Patient soda dialyzer used: No [place] Coma Scale Score: 15 Patient History Past [...] by mouth i (more content not included)... [facility] Office Visiton 07-18-2024 Follow-up visit [id number] Aby Madrigal 1965 F Date Provider Department Center 07/18/2024 [id number]-PAJLYFENG BOWMAN [facility] Family History Problem Relation Age of Onset Lung cancer Mother No Known Problems Father Lung cancer Sister Family Status - Relation Status Age at Mother Father Sister Level of Service:86535 [place] OFFICE/OUTPATIENT NEW MODERATE MDM 45 MINUTES Reason for Visit and Comments: Nodules [Other] Normal [facility] Follow-up visit [id number] Aby Madrigal 1965 F Date Provider Department [place] 07/18/2024 [id number]-UNCAPFENG BOWMAN [facility] ENDOCR [facility] Family History Problem Relation Age of Onset Lung cancer Mother No Known Problems Father Lung cancer Sister Family Status - Relation Status Age at Mother Father Sister Level of Service:NOCHG [place]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 I am calling you to follow up [...] No Patient Name Aby Madrigal Date 07/13/24 [facility] Telephoneon 07-13-2024 Telephone [id number] Aby Madrigal 1965 F Date Provider Department Center 07/13/2024 Adela-GINNY GARCIA [facility] Family History Problem Relation Age of Onset Lung cancer Mother No Known Problems Father Lung cancer Sister Family Status - Relation Status Age at Mother Father Sister Reason for Visit and Comments: Hospital Follow-up [832] Normal [facility] 30on 07-12-2024 30 The patient is Moderately [...] to address these barriers include . Normal [facility] ANTI-XA (HEPARIN LEVEL)on HEPARIN UNFRACTIONATED (U/ML) IN PPP BY CHROMOGENIC METHOD 0.60 IU/mL Normal 0.3-0.7 [facility] Comment on above: Order Comment: Check anti-Xa level every 6 hours while on heparin infusion, or per protocol. Result Comment: [place] roxaban and Apixaban will interfere with the anti Xa assay used to monitor UFH and LMWH. Performed By: #### L [id number] #### [facility] ([facility]) [address] [place] [address] BASIC METABOLIC PANELon 08- Anion gap [Moles/Vol] 10 mmol/L Normal 7-20 [facility] Comment on above: Performed By: #### L [id number] #### [facility] (BEAKER) [address] [place] [address] Calcium [Mass/Vol] 8.8 mg/dL Normal 8.6-10.3 [facility] Comment on above: Performed By: #### L [id number] #### [facility] ([facility]ER) [address] [place] [address] Chloride [Moles/Vol] 108 mmol/L High 98-107 [facility] Comment on above: Performed By: #### L [id number] #### [facility] ([facility]) [address] [place] [address] CO2 [Moles/Vol] 27 mmol/L Normal 21-31 [facility] Comment on above: Performed By: #### L [id number] #### [facility] ([facility]) [address] [place] [address] Creatinine [Mass/Vol] 0.89 mg/dL Normal 0.60-1.20 [facility] Comment on above: Performed By: #### L [id number] #### [facility] ([facility]) [address] [place] [address] GLOMERULAR FILTRATION RATE ML/MIN/1.73 SQ M.PREDICTED 74.2 mL/min/1.73m*2 Normal >60.0 [facility] Comment on above: Result Comment: The [facility]???s estimated glomerular filtration rate (eGFR) will no [...] group of individuals. Performed By: #### L [id number] #### [facility] ([facility]) [address] [place] [address] Glucose [Mass/Vol] 109 mg/dL High 70-100 [facility] Comment on above: Performed By: #### L [id number] #### [facility] ([facility]) [address] [place] [address] Potassium [Moles/Vol] 3.4 mmol/L Low 3.5-5.1 [facility] Comment on above: Performed By: #### L [id number] #### [facility] ([facility] [address] [place] [address] Sodium [Moles/Vol] 142 mmol/L Normal 136-145 [facility] Comment on above: Performed By: #### L [id number] #### [facility] ([facility] [place]) [address] [place] [address] Urea nitrogen [Mass/Vol] 11 mg/dL Normal 7-25 [facility] Comment on above: Performed By: #### L [id number] #### [facility] ([facility] [place]) [address] [place] [address] UREA NITROGEN/CREATININE (MASS RATIO) IN SER/PLAS 12.4 Normal [facility] Comment on above: Performed By: #### L [id number] #### [facility] ([facility] [place]) [address] [place] [address] CBC WITH AUTO DIFFERENTIALon 07-12-2024 Basophils (Bld) [#/Vol] 0.04 10*3/uL Normal 0.00-0.20 [facility] Comment on above: Performed By: #### L [id number] #### [facility] ([facility] [place]) [address] [place] [address] Basophils/100 WBC (Bld) 0.6 % Normal 0.0-1.0 [facility] Comment on above: Performed By: #### L [id number] #### [facility] ([facility] [place]) [address] [place] [address] Eosinophils (Bld) [#/Vol] 0.22 10*3/uL Normal 0.00-0.50 [facility] Comment on above: Performed By: #### L [id number] #### [facility] ([facility] [place]) [address] [place] [address] Eosinophils/100 WBC (Bld) 3.5 % Normal 0.0-6.0 [facility] Comment on above: Performed By: #### L [id number] #### [facility] ([facility] [place]) [address] [facility] [place] [address] Erythrocyte distribution width (RBC) [Ratio] 14.5 % Normal 11.5-15.0 [facility] Comment on above: Performed By: #### L [id number] #### [facility] [address] [place] [address] ERYTHROCYTE MEAN CORPUSCULAR HEMOGLOBIN CONCENTRATION (G/DL) BY AUTOMATED 32.7 g/dL Normal 32.0-35.0 [facility] Comment on above: Performed By: #### L [id number] #### [facility] ([facility] [place]) [address] [place] [address] Hematocrit (Bld) [Volume fraction] 34.2 % Low 36.0-48.0 [facility] Comment on above: Performed By: #### L [id number] #### [facility] ([facility] [place]) [address] [place] [address] Hemoglobin (Bld) [Mass/Vol] 11.2 g/dL Low 12.0-15.0 [facility] Comment on above: Performed By: #### L [id number] #### [facility] ([facility] [place]) [address] [place] [address] Immature granulocytes (Bld) [#/Vol] 0.01 10*3/uL Normal 0.00-0.20 [facility] Comment on above: Performed By: #### L [id number] #### [facility] ([facility] [place]) [address] [place] [address] Immature granulocytes/100 WBC (Bld) 0.2 % Normal 0.0-1.0 [facility] Comment on above: Performed By: #### L [id number] #### [facility] [address] [place] [address] Lymphocytes (Bld) [#/Vol] 2.37 10*3/uL Normal 1.20-4.00 [facility] Comment on above: Performed By: #### L [id number] #### [facility] ([facility]) [address] [place] [address] Lymphocytes/100 WBC (Bld) 37.8 % Normal 20.0-45.0 [facility] Comment on above: Performed By: #### L [id number] #### [facility] [address] [place] [address] MCH (RBC) [Entitic mass] 27.4 pg Normal 27.0-33.0 [facility] Comment on above: Performed By: #### L [id number] #### [facility] ([facility] [place]) [address] [place] [address] MCV (RBC) [Entitic vol] 83.6 fL Normal 82.0-98.0 [facility] Comment on above: Performed By: #### L [id number] #### [facility] ([facility] [place]) [address] [place] [address] Monocytes (Bld) [#/Vol] 0.43 10*3/uL Normal 0.10-1.00 [facility] Comment on above: Performed By: #### L [id number] #### [facility] ([facility] [place]) [address] [place] [address] Monocytes/100 WBC (Bld) 6.9 % Normal 5.0-12.0 [facility] Comment on above: Performed By: #### L [id number] #### [facility] ([facility] [place]) [address] [place] [address] Neutrophils (Bld) [#/Vol] 3.20 10*3/uL Normal 1.60-7.60 [facility] Comment on above: Performed By: #### L [id number] #### [facility] ([facility] [place]) [address] [place] [address] Neutrophils/100 WBC (Bld) 51.0 % Normal 40.0-72.0 [facility] Comment on above: Performed By: #### L [id number] #### [facility] ([facility] [place]) [address] [place] [address] NRBC (PER 100 WBCS) BY AUTOMATED COUNT 0.0 % Normal 0 [facility] Comment on above: Performed By: #### L [id number] #### [facility] ([facility] [place]) [address] [place] [address] PLATELETS (10*3/UL) IN BLOOD AUTOMATED COUNT 223 10*3/uL Normal 150-400 [facility] Comment on above: Performed By: #### L [id number] #### [facility] ([facility] [place]) [address] [place] [address] RBC (Bld) [#/Vol] 4.09 10*6/uL Normal 3.80-5.00 [facility] Comment on above: Performed By: #### L [id number] #### [facility] ([facility] [place]) [address] [place] [address] WBC (Bld) [#/Vol] 6.27 10*3/uL Normal 4.00-10.60 [facility] Comment on above: Performed By: #### L [id number] #### [facility] ([facility] [place]) [address] [place] [address] MAGNESIUMon 07-12-2024 Magnesium [Mass/Vol] 1.7 mg/dL Low 1.9-2.7 [facility] Comment on above: Performed By: #### L [id number] #### [facility] ([facility] [place]) [address] [place] [address] POCT GLUCOSE METER UNSOLICIT ED RESULTSon 07-12-2024 Glucose [Mass/Vol] 102 mg/dL Normal 70-105 [facility] Comment on above: Order Comment: Waive d Testing in the ED is performed under the ED CLIA certificate #[id number]. Result Comment: [email or web address] Performed By: #### L [id number] #### [facility] ([facility] [place]) [address] [place] [address] TROPONIN Ion 07-12-2024 Troponin I.cardiac [Mass/Vol] 0.01 ng/mL Normal 0.00-0.04 [facility] Comment on above: Performed By: #### L [id number] #### [facility] ([facility] [place]) [address] [place] [address] 30on 07-11-2024 30 The patient is Moderately [...] and maintained or improved Outcome: Progressing Normal [facility] 30 The patient is Moderately Stable - Low risk of patient condition declining or worsening The patient's goals for the shift include no chest pain The clinical goals for the shift include stable vital/no chest pain Over the shift, the patient did not make progress toward the following goals. Barriers to progression include . Recommendations to address these barriers include . Normal [facility] ALDOSTERONEon 07-11-2024 ALDOSTERONE (NG/DL) IN SER/PLAS 4.9 ng/dL Normal [facility] Comment on above: Result Comment: INTE RPRETIVE [...] reference intervals for this test in the [facility] ([employer]). Performed By: [employer] [address] [place] [address] Coutierier: Navneet Simeon MD, PhD CLIA Number: [id number] Performed By: #### L [id number] #### [facility] ([facility]) [address] [place] [address] ANTI-XA (HEPARIN LEVEL)on HEPARIN UNFRACTIONATED (U/ML) IN PPP BY CHROMOGENIC METHOD 0.42 IU/mL Normal 0.3-0.7 [facility] Comment on above: Order Comment: Check anti-Xa level every 6 hours while on heparin infusion, or per protocol. Result Comment: [place] roxaban and Apixaban will interfere with the anti Xa assay used to monitor UFH and LMWH. Performed By: #### L [id number] #### [facility] ([facility] [place]) [address] [place] [address] HEPARIN UNFRACTIONATED (U/ML) IN PPP BY CHROMOGENIC METHOD 0.20 IU/mL Low 0.3-0.7 [facility] Comment on above: Order Comment: Check anti-Xa level every 6 hours while on heparin infusion, or per protocol. Result Comment: [place] roxaban and Apixaban will interfere with the anti Xa assay used to monitor UFH and LMWH. Performed By: #### L [id number] #### [facility] ([facility] [place]) [address] [place] [address] APTTon 07-11-2024 ACTIVATED PARTIAL THROMBOPLASTIN TIME IN PPP BY COAGULATION ASSAY 43.0 Seconds High 25.0-35.0 [facility] Comment on above: Result Comment: Clin ical significance of the APTT is questionable in the presence of heparin. Performed By: #### L [id number] #### [facility] ([facility] [place]) [address] [place] [address] BASIC METABOLIC PANELon 06-23 Anion gap [Moles/Vol] 9 mmol/L Normal 7-20 [facility] Comment on above: Performed By: #### L [id number] ####[facility] ([facility] [place])[address] [place] [address] Calcium [Mass/Vol] 8.8 mg/dL Normal 8.6-10.3 [facility] Comment on above: Performed By: #### L [id number] ####[facility] ([facility] [place])[address] [place] [address] Chloride [Moles/Vol] 108 mmol/L High 98-107 [facility] Comment on above: Performed By: #### L [id number] ####[facility] (BEAKER)[address] [place] [address] CO2 [Moles/Vol] 28 mmol/L Normal 21-31 [facility] Comment on above: Performed By: #### L [id number] ####[facility] ([facility] [place] [address] Creatinine [Mass/Vol] 1.09 mg/dL Normal 0.60-1.20 [facility] Comment on above: Performed By: #### L [id number] ####[facility] ([facility] [place] [address] GLOMERULAR FILTRATION RATE ML/MIN/1.73 SQ M.PREDICTED 58.2 mL/min/1.73m*2 Low >60.0 [facility] Comment on above: Result Comment: The [facility]???s estimated glomerular filtration rate (eGFR) will no [...] of individuals. Performed By: #### L [id number] ####[facility] ([facility] [place] [address] Glucose [Mass/Vol] 113 mg/dL High 70-100 [facility] Comment on above: Performed By: #### L [id number] ####[facility] ([facility]AK[facility])[address] [place] [address] Potassium [Moles/Vol] 3.4 mmol/L Low 3.5-5.1 [facility] Comment on above: Performed By: #### L [id number] ####[facility] ([facility]AK[facility])[address] [place] [address] Sodium [Moles/Vol] 142 mmol/L Normal 136-145 [facility] Comment on above: Performed By: #### L [id number] ####[facility] ([facility] [place] [address] Urea nitrogen [Mass/Vol] 14 mg/dL Normal 7-25 [facility] Comment on above: Performed By: #### L [id number] ####[facility] ([facility] [place])[address] [place] [address] UREA NITROGEN/CREATININE (MASS RATIO) IN SER/PLAS 12.8 Normal [facility] Comment on above: Performed By: #### L [id number] ####[facility] ([facility] [place])[address] [place] [address] CBC WITH AUTO DIFFERENTIALon 07-11-2024 Basophils (Bld) [#/Vol] 0.04 10*3/uL Normal 0.00-0.20 [facility] Comment on above: Performed By: #### L [id number] ####[facility] ([facility] [place])[address] [place] [address] Basophils/100 WBC (Bld) 0.6 % Normal 0.0-1.0 [facility] Comment on above: Performed By: #### L [id number] ####[facility] ([facility] [place])[address] [place] [address] Eosinophils (Bld) [#/Vol] 0.16 10*3/uL Normal 0.00-0.50 [facility] Comment on above: Performed By: #### L [id number] ####[facility] ([facility] [place])[address] [place] [address] Eosinophils/100 WBC (Bld) 2.2 % Normal 0.0-6.0 [facility] Comment on above: Performed By: #### L [id number] ####[facility] ([facility] [place])[address] [place] [address] Erythrocyte distribution width (RBC) [Ratio] 14.6 % Normal 11.5-15.0 [facility] Comment on above: Performed By: #### L [id number] ####[facility] ([facility])[address] [place] [address] ERYTHROCYTE MEAN CORPUSCULAR HEMOGLOBIN CONCENTRATION (G/DL) BY AUTOMATED 32.0 g/dL Normal 32.0-35.0 [facility] Comment on above: Performed By: #### L [id number] ####[facility] ([facility])[address] [place] [address] Hematocrit (Bld) [Volume fraction] 36.2 % Normal 36.0-48.0 [facility] Comment on above: Performed By: #### L [id number] ####[facility] ([facility]AK[facility])[address] [place] [address] Hemoglobin (Bld) [Mass/Vol] 11.6 g/dL Low 12.0-15.0 [facility] Comment on above: Performed By: #### L [id number] ####[facility] ([facility])[address] [place] [address] Immature granulocytes (Bld) [#/Vol] 0.02 10*3/uL Normal 0.00-0.20 [facility] Comment on above: Performed By: #### L [id number] ####[facility] ([facility])[address] [place] [address] Immature granulocytes/100 WBC (Bld) 0.3 % Normal 0.0-1.0 [facility] Comment on above: Performed By: #### L [id number] ####[facility] ([facility])[address] [place] [address] Lymphocytes (Bld) [#/Vol] 2.34 10*3/uL Normal 1.20-4.00 [facility] Comment on above: Performed By: #### L [id number] ####[facility] ([facility])[address] [place] [address] Lymphocytes/100 WBC (Bld) 32.6 % Normal 20.0-45.0 [facility] Comment on above: Performed By: #### L [id number] ####[facility] ([facility])[address] [place] [address] MCH (RBC) [Entitic mass] 27.2 pg Normal 27.0-33.0 [facility] Comment on above: Performed By: #### L [id number] ####[facility] ([facility])[address] [place] [address] MCV (RBC) [Entitic vol] 85.0 fL Normal 82.0-98.0 [facility] Comment on above: Performed By: #### L [id number] ####[facility] ([facility] [place])[address] [place] [address] Monocytes (Bld) [#/Vol] 0.49 10*3/uL Normal 0.10-1.00 [facility] Comment on above: Performed By: #### L [id number] ####[facility] ([facility] [place])[address] [place] [address] Monocytes/100 WBC (Bld) 6.8 % Normal 5.0-12.0 [facility] Comment on above: Performed By: #### L [id number] ####[facility] ([facility] [place])[address] [place] [address] Neutrophils (Bld) [#/Vol] 4.13 10*3/uL Normal 1.60-7.60 [facility] Comment on above: Performed By: #### L [id number] ####[facility] ([facility]AK[facility])[address] [place] [address] Neutrophils/100 WBC (Bld) 57.5 % Normal 40.0-72.0 [facility] Comment on above: Performed By: #### L [id number] ####[facility] ([facility]AKER)[address] [place] [address] NRBC (PER 100 WBCS) BY AUTOMATED COUNT 0.0 % Normal 0 [facility] Comment on above: Performed By: #### L [id number] ####[facility] (BEAKER)[address] [place] [address] PLATELETS (10*3/UL) IN BLOOD AUTOMATED COUNT 245 10*3/uL Normal 150-400 [facility] Comment on above: Performed By: #### L [id number] ####[facility] ([facility]ER)[address] [place] [address] RBC (Bld) [#/Vol] 4.26 10*6/uL Normal 3.80-5.00 [facility] Comment on above: Performed By: #### L [id number] ####[facility] ([facility] [place], [place] [address] WBC (Bld) [#/Vol] 7.18 10*3/uL Normal 4.00-10.60 [facility] Comment on above: Performed By: #### L [id number] ####[facility] ([place])[address] [place] [place] [address] CONSULTon 07-11-2024 CONSULT -- Attestation signed by [...] Brown is the endocrine surgeon in the [place] area that would be most appropriate and [...] with plan for outpatient follow up with [place] [facility] and endocrinology Meseret Mac MD Cardiology Consult Note Reason for Consult: Chest pain HPI: Aby Madrigal is a 59 y.o. female patient is presenting as a transfer from [facility] for the evaluation of chest pain. Past [...] medical history of Abnormal ECG, Diabetes mellitus ([facility]), Hyperlipidemia, Hypertension, Obstructive sleep apnea, Panic attacks, and Stroke ([facility]). Surgical History She has [...] Value Ventricular Rate 56 Atrial Rate 56 CA Interval 180 QRS DURATION 94 QT Interval 430 QTC (more content not included)... Normal [facility] EDPROVon 07-11-2024 EDPROV HPI Chief Complaint Patient [...] Pt states she was trasnfered here from [place] to be transferred to cardiology. Pt states she had a cardiac stent placed last week. She denies fever, coughing, vomiting, abdominal pain. She admits diarrhea. She felt better when given ativan and worse when she was given morphine. She has had her gallbladder removed. History provided by: Patient soda dialyzer used: No Chest Pain Associated symptoms: no abdominal pain, no cough, no fever and no vomiting [place] Coma Scale Score: 15 Patient History Past [...] signing this emergency patient record, the Emergency Physician/INDUSTRIAL ENGINEERING TECHNOLOGIST/PA-C attests that all entries made into the electronic medical record by the scribe prior to the Physician/INDUSTRIAL ENGINEERING TECHNOLOGIST/PA-C signature reflect an accurate accounting of the evaluation and care rendered by that Emergency Physician/INDUSTRIAL ENGINEERING TECHNOLOGIST/PA-C. The Emergency Physician/INDUSTRIAL ENGINEERING TECHNOLOGIST/PA-C assumes full responsibility for those entries. The Emergency Physician/INDUSTRIAL ENGINEERING TECHNOLOGIST/PA-C also attests that any patient testing or treatment that was instituted by nursing staff. Normal [facility] EDPROV HPI Chief Complaint Patient presents with [...] Pt states she was trasnfered here from [facility] to be transferred to cardiology. Pt states she had a cardiac stent placed last week. She denies fever, coughing, vomiting, abdominal pain. She admits diarrhea. She felt better when given ativan and worse when she was given morphine. She has had her gallbladder removed. History provided by: Patient soda dialyzer used: No Chest Pain Associated symptoms: no abdominal pain, no cough, no fever and no vomiting [place] Coma Scale Score: 15 Patient History Past [...] 07/11/24 1256 NSTEMI (non-ST elevated myocardial infarction) ([facility]) Medical Decision Making Amount and/or Complexity of Data Reviewed Labs: ordered. Decision-making details documented in ED Course. ECG/medicine tests: ordered and independent interpretation performed. Decision-making details documented in ED Course. Risk Drug therapy requiring intensive monitoring for toxicity. Decision regarding hospitalization. Minor surgery with identified risk factors. I, Basilia diallo (more content not included)... Invalid Interpretation Code [facility] POCT GLUCOSE METER UNSOLICIT ED RESULTSon 07-11-2024 Glucose [Mass/Vol] 122 mg/dL High 70-105 [facility] Comment on above: Order Comment: Waive d Testing in the ED is performed under the ED CLIA certificate #[id number]. Result Comment: [email or web address] Performed By: #### L [id number] #### [facility] (BEAKER) [address] [place] [address] PROTIME-INRon 07-11-2024 INR IN PPP BY COAGULATION ASSAY 1.00 Normal 0.90-1.10 [facility] Comment on above: Result Comment: ACCC P [...] CHEST 1995;[id number]. Performed By: #### L [id number] ####[facility] [employer] [place] [address] PROTHROMBIN TIME (PT) IN PPP BY COAGULATION ASSAY 13.2 Seconds Normal 12.3-14.8 [facility] Comment on above: Performed By: #### L [id number] ####[facility] [employer] [place] [address] RENIN ACTIVITYon 07-11-2024 RENIN ACTIVITY <0.1 Normal [facility] Comment on above: Result Comment: INTE RPRETIVE INFORMATION: Renin Activity Adult, Normal sodium diet: Supine ................. 0.2-1.6 ng/mL/hr Upright ................ 0.5-4.0 ng/mL/hr Children, Normal sodium diet, Supine: (1-7 days) ..... 2.0-35.0 ng/mL/hr Cord blood [...] developed and its performance characteristics determined by [employer]. It has not been cleared or approved by the [place] Food and Drug Administration. This test was performed in a CLIA certified laboratory and is intended for clinical purposes. Performed By: [employer] [address] [place] [address] Coutierier: Navneet Simeon MD, PhD [place] Number: [id number] Performed By: #### L [id number] #### [facility] (BEAKER) [address] [place] [address] TROPONIN Ion 07-11-2024 Troponin I.cardiac [Mass/Vol] 0.01 ng/mL Normal 0.00-0.04 [facility] Comment on above: Performed By: #### L [id number] ####[facility] (BEAKER)[address] [place] [address] Office Visiton 07-10-2024 Follow-up visit [id number] Aby Madrigal 1965 F Date Provider Department Center 07/10/2024 [id number] [facility] Family History Problem Relation Age of Onset Lung cancer Mother No Known Problems Father Lung cancer Sister Family Status - Relation Status Age at Mother Father Sister Level of Service:34686 [place] OFFICE/OUTPATIENT ESTABLISHED MOD MDM 30 MIN Reason for Visit and Comments: Coronary Artery Disease [187] Post-Cath [731] Normal [facility] 36on 07-03-2024 36 Post Discharge Call Good morning, I am Ginny Garcia, RN a lead nurse from [facility]. I am calling you to follow up [...] No Patient Name Aby Madrigal Date 07/03/24 [facility] Telephoneon 07-03-2024 Telephone [phone] Aby Madrigal 1965 F Date Provider Department [place] 07/03/2024 GINNY MALONEY [facility] C Family History Problem Relation Age of Onset Lung cancer Mother No Known Problems Father Lung cancer Sister Family Status - Relation Status Age at Mother Father Sister Reason for Visit and Comments: Hospital Follow-up [832] Normal [facility] 30on 07-01-2024 30 The patient is Moderately [...] and maintained or improved Outcome: Progressing Normal [facility] BASIC METABOLIC PANELon 06-22 Anion gap [Moles/Vol] 14 mmol/L Normal 7-20 [facility] Comment on above: Performed By: #### L [id number] #### [facility] ([facility]) [address] [place] [address] Calcium [Mass/Vol] 8.2 mg/dL Low 8.6-10.3 [facility] Comment on above: Performed By: #### L [id number] #### [facility] ([facility]) [address] [place] [address] Chloride [Moles/Vol] 106 mmol/L Normal 98-107 [facility] Comment on above: Performed By: #### L [id number] #### [facility] (BEAKER) [address] [place] [address] CO2 [Moles/Vol] 25 mmol/L Normal 21-31 [facility] Comment on above: Performed By: #### L [id number] #### [facility] ([facility]ER) [address] [place] [address] Creatinine [Mass/Vol] 0.91 mg/dL Normal 0.60-1.20 [facility] Comment on above: Performed By: #### L [id number] #### [facility] ([facility]AKER) [address] [place] [address] GLOMERULAR FILTRATION RATE ML/MIN/1.73 SQ M.PREDICTED 72.2 mL/min/1.73m*2 Normal >60.0 [facility] Comment on above: Result Comment: The [facility]???s estimated glomerular filtration rate (eGFR) will no [...] group of individuals. Performed By: #### L [id number] #### [facility] ([facility]) [address] [place] [address] Glucose [Mass/Vol] 101 mg/dL High 70-100 [facility] Comment on above: Performed By: #### L [id number] #### [facility] ([facility]) [address] [place] [address] Potassium [Moles/Vol] 3.5 mmol/L Normal 3.5-5.1 [facility] Comment on above: Performed By: #### L [id number] #### [facility] ([facility]) [address] [place] [address] Sodium [Moles/Vol] 141 mmol/L Normal 136-145 [facility] Comment on above: Performed By: #### L [id number] #### [facility] ([facility]) [address] [place] [address] Urea nitrogen [Mass/Vol] 13 mg/dL Normal 7-25 [facility] Comment on above: Performed By: #### L [id number] #### [facility] ([facility]) [address] [place] [address] UREA NITROGEN/CREATININE (MASS RATIO) IN SER/PLAS 14.3 Normal [facility] Comment on above: Performed By: #### L [id number] #### [facility] ([facility]) [address] [place] [address] CBCon 07-01-2024 Erythrocyte distribution width (RBC) [Ratio] 15.4 % High 11.5-15.0 [facility] Comment on above: Performed By: #### L [id number] #### [facility] [address] [place] [address] ERYTHROCYTE MEAN CORPUSCULAR HEMOGLOBIN CONCENTRATION (G/DL) BY AUTOMATED 32.1 g/dL Normal 32.0-35.0 [facility] Comment on above: Performed By: #### L [id number] #### [facility] ([facility]) [address] [place] [address] Hematocrit (Bld) [Volume fraction] 38.6 % Normal 36.0-48.0 [facility] Comment on above: Performed By: #### L [id number] #### [facility] ([facility]) [address] [place] [address] Hemoglobin (Bld) [Mass/Vol] 12.4 g/dL Normal 12.0-15.0 [facility] Comment on above: Performed By: #### L [id number] #### [facility] ([facility]) [address] [place] [address] MCH (RBC) [Entitic mass] 26.9 pg Low 27.0-33.0 [facility] Comment on above: Performed By: #### L [id number] #### [facility] ([facility]) [address] [place] [address] MCV (RBC) [Entitic vol] 83.7 fL Normal 82.0-98.0 [facility] Comment on above: Performed By: #### L [id number] #### [facility] ([facility]) [address] [place] [address] PLATELETS (10*3/UL) IN BLOOD AUTOMATED COUNT 238 10*3/uL Normal 150-400 [facility] Comment on above: Performed By: #### L [id number] #### [facility] ([facility]) [address] [place] [address] RBC (Bld) [#/Vol] 4.61 10*6/uL Normal 3.80-5.00 [facility] Comment on above: Performed By: #### L [id number] #### [facility] (BEAKER) [address] [place] [address] WBC (Bld) [#/Vol] 7.04 10*3/uL Normal 4.00-10.60 [facility] Comment on above: Performed By: #### L [id number] #### [facility] (BEAKER) [address] [place] [address] LIPID PANELon 07-01-2024 CHOL/HDL 3.8 mg/dL Normal [facility] Comment on above: Performed By: #### L [id number] ####[facility] (BEAKER)[address] [place] [address] Cholesterol [Mass/Vol] 128 mg/dL Normal 120-200 [facility] Comment on above: Performed By: #### L [id number] ####[facility] ([facility] [place] [address] Magnesium [Mass/Vol] 87 mg/dL Normal 40-149 [facility] Comment on above: Result Comment: TRIG LYCERIDE REFERENCE RANGE: 20 YEARS AND OLDER CARDIOVASCULAR RISK LESS THAN 150 mg/dL LOW RISK 150 TO 199 mg/dL BORDERLINE RISK 200 mg/dL AND GREATER HIGH RISK Performed By: #### L [id number] ####[facility] ([facility] [place] [address] Magnesium [Mass/Vol] 77 mg/dL Normal 0-160 [facility] Comment on above: Performed By: #### L [id number] ####[facility] (BEAKER)[address] [place] [address] Magnesium [Mass/Vol] 34 mg/dL Normal 23-92 [facility] Comment on above: Performed By: #### L [id number] ####[facility] (BEAKER)[address] [place] [address] NON HDL CHOL. (LDL+VLDL) 94 Normal [facility] Comment on above: Performed By: #### L [id number] ####[facility] (BEAKER)[address] [place] [address] TOTAL VLDL-C 17 mg/dL Normal 0-40 [facility] Comment on above: Performed By: #### L [id number] ####[facility] ([facility])[address] [place] [address] MAGNESIUMon 07-01-2024 Magnesium [Mass/Vol] 2.0 mg/dL Normal 1.9-2.7 [facility] Comment on above: Performed By: #### L [id number] #### [facility] ([facility]) [address] [place] [address] NURSNOTEon 07-01-2024 NURSNOTE Discharge instructio ns given, reviewed, questions, answered, signed, copy received. Normal [facility] POCT GLUCOSE METER UNSOLICIT ED RESULTSon 07-01-2024 Glucose [Mass/Vol] 124 mg/dL High 70-105 [facility] Comment on above: Order Comment: Waive d Testing in the ED is performed under the ED CLIA certificate #[id number]. Result Comment: [email or web address] Performed By: #### L [id number] ####[facility] ([facility])[address] [place] [address] Glucose [Mass/Vol] 106 mg/dL High 70-105 [facility] Comment on above: Order Comment: Waive d Testing in the ED is performed under the ED CLIA certificate #[id number]. Result Comment: [email or web address] Performed By: #### L [id number] #### [facility] ([facility]) [address] [place] [address] TROPONIN Ion 07-01-2024 Troponin I.cardiac [Mass/Vol] 0.09 ng/mL High 0.00-0.04 [facility] Comment on above: Performed By: #### L [id number] #### [facility] ([facility]) [address] [place] [address] 30on 06-30-2024 30 The patient is Moderately Stable - Low risk of patient condition declining or worsening The patient's goals for the shift include comfort, rest The clinical goals for the shift include stable vitals, comfort Problem: Pain - Adult Goal: Verbalizes/displays adequate comfort level or baseline comfort level Outcome: Not Progressing Normal [facility] 30 Daily Case Managemen t Update Multidisciplinary [...] PT Recommendations: OT Recommendations: New Consults: Normal [facility] 30 The patient is Moderately Stable - Low risk of patient condition declining or worsening The patient's goals for the shift include COMFORT The clinical goals for the shift include VSS Over the shift, the patient did not make progress toward the following goals. Barriers to progression include . Recommendations to address these barriers include . Normal [facility] ANTI-XA (HEPARIN LEVEL)on HEPARIN UNFRACTIONATED (U/ML) IN PPP BY CHROMOGENIC METHOD 0.64 IU/mL Normal 0.3-0.7 [facility] Comment on above: Order Comment: Check anti-Xa level every 6 hours while on heparin infusion, or per protocol. Result Comment: [place] roxaban and Apixaban will interfere with the anti Xa assay used to monitor UFH and LMWH. Performed By: #### L [id number] #### [facility] (BEAKER) [address] [place] [address] BASIC METABOLIC PANELon Anion gap [Moles/Vol] 11 mmol/L Normal 7-20 [facility] Comment on above: Performed By: #### L [id number] ####[facility] (BEAKER)[address] [place] [address] Calcium [Mass/Vol] 8.3 mg/dL Low 8.6-10.3 [facility] Comment on above: Performed By: #### L [id number] ####[facility] ([facility])[address] [place] [address] Chloride [Moles/Vol] 110 mmol/L High 98-107 [facility] Comment on above: Performed By: #### L [id number] ####[facility] ([facility])[address] [place] [address] CO2 [Moles/Vol] 26 mmol/L Normal 21-31 [facility] Comment on above: Performed By: #### L [id number] ####[facility] ([facility])[address] [place] [address] Creatinine [Mass/Vol] 0.81 mg/dL Normal 0.60-1.20 [facility] Comment on above: Performed By: #### L [id number] ####[facility] ([facility])[address] [place] [address] GLOMERULAR FILTRATION RATE ML/MIN/1.73 SQ M.PREDICTED 83.1 mL/min/1.73m*2 Normal >60.0 [facility] Comment on above: Result Comment: The [facility]???s estimated glomerular filtration rate (eGFR) will no [...] of individuals. Performed By: #### L [id number] ####[facility] ([facility])[address] [place] [address] Glucose [Mass/Vol] 110 mg/dL High 70-100 [facility] Comment on above: Performed By: #### L [id number] ####[facility] (BEAKER)[address] [place] [address] Potassium [Moles/Vol] 3.7 mmol/L Normal 3.5-5.1 [facility] Comment on above: Performed By: #### L [id number] ####[facility] (BEAKER)[address] [place] [address] Sodium [Moles/Vol] 143 mmol/L Normal 136-145 [facility] Comment on above: Performed By: #### L [id number] ####[facility] (BEAKER)[address] [place] [address] Urea nitrogen [Mass/Vol] 10 mg/dL Normal 7-25 [facility] Comment on above: Performed By: #### L [id number] ####[facility] ([facility] [place] [address] UREA NITROGEN/CREATININE (MASS RATIO) IN SER/PLAS 12.3 Normal [facility] Comment on above: Performed By: #### L [id number] ####[facility] ([facility] [place] [address] CBCon 06-30-2024 Erythrocyte distribution width (RBC) [Ratio] 15.3 % High 11.5-15.0 [facility] Comment on above: Performed By: #### L [id number] ####[facility] ([facility] [place] [address] ERYTHROCYTE MEAN CORPUSCULAR HEMOGLOBIN CONCENTRATION (G/DL) BY AUTOMATED 31.3 g/dL Low 32.0-35.0 [facility] Comment on above: Performed By: #### L [id number] ####[facility] (BEAKER)[address] [place] [address] Hematocrit (Bld) [Volume fraction] 36.7 % Normal 36.0-48.0 [facility] Comment on above: Performed By: #### L [id number] ####[facility] (BEAKER)[address] [place] [address] Hemoglobin (Bld) [Mass/Vol] 11.5 g/dL Low 12.0-15.0 [facility] Comment on above: Performed By: #### L [id number] ####[facility] ([facility])[address] [place] [address] MCH (RBC) [Entitic mass] 26.9 pg Low 27.0-33.0 [facility] Comment on above: Performed By: #### L [id number] ####[facility] ([facility])[address] [place] [address] MCV (RBC) [Entitic vol] 85.7 fL Normal 82.0-98.0 [facility] Comment on above: Performed By: #### L [id number] ####[facility] ([facility])[address] [place] [address] PLATELETS (10*3/UL) IN BLOOD AUTOMATED COUNT 243 10*3/uL Normal 150-400 [facility] Comment on above: Performed By: #### L [id number] ####[facility] ([facility])[address] [place] [address] RBC (Bld) [#/Vol] 4.28 10*6/uL Normal 3.80-5.00 [facility] Comment on above: Performed By: #### L [id number] ####[facility] ([facility])[address] [place] [address] WBC (Bld) [#/Vol] 7.41 10*3/uL Normal 4.00-10.60 [facility] Comment on above: Performed By: #### L [id number] ####[facility] ([facility])[address] [place] [address] CONSULTon 06-30-2024 CONSULT Cardiology Consult Note Reason for Consult: NSTEMI, transfer from [facility] HPI: Aby Madrigal, a 59 y.o. female patient, is transferred from [facility] for continuity of care. Past medical history includes: HTN History of TIA DMII HLD SURESH Overweight Patient reports that 3 days ago, she woke up in the mid of the night with indigestion, and a feeling fullness, but no pressure like chest pain. She presented to [facility], where she was found to [...] Value Ventricular Rate 71 Atrial Rate 71 CA Interval 176 QRS DURATION 92 QT Interval 424 QTC CALCULATION(BAZETT) 460 P Henderson 52 R-Henderson 19 T Wave Henderson 164 Impression Normal sinus rhythm Left ventricular [...] Normal sinu (more content not included)... Normal [facility] HPon 06-30-2024 HP H&P reviewed. The patient was examined and there are no changes to the H&P. 59 y.o. year old female with a PMHx significant for DM2, hypertension presents a direct mission from [facility] with a chief complaint of chest pain [...] to proceed. Signed, Yris Oakley MD PGY-4 [employer] Pager: [phone] [facility] POCT GLUCOSE METER UNSOLICIT ED RESULTSon 06-30-2024 Glucose [Mass/Vol] 170 mg/dL High 70-105 [facility] Comment on above: Order Comment: Waive d Testing in the ED is performed under the ED CLIA certificate #[id number]. Result Comment: [email or web address] Performed By: #### L [id number] #### [facility] (BEAKER) [address] [place] [address] Glucose [Mass/Vol] 129 mg/dL High 70-105 [facility] Comment on above: Order Comment: Waive d Testing in the ED is performed under the ED CLIA certificate #[id number]. Result Comment: [email or web address] Performed By: #### L [id number] #### [facility] (BEAKER) [address] [place] [address] Glucose [Mass/Vol] 167 mg/dL High 70-105 [facility] Comment on above: Order Comment: Waive d Testing in the ED is performed under the ED CLIA certificate #[id number]. Result Comment: [email or web address] Performed By: #### L [id number] ####[facility] ([facility])[address] [facility] [place] [address] TROPONIN Ion 06-30-2024 Troponin I.cardiac [Mass/Vol] 0.07 ng/mL High 0.00-0.04 [facility] Comment on above: Performed By: #### L [id number] ####[facility] ([facility])[address] [facility] [place] [address] Troponin I.cardiac [Mass/Vol] 0.10 ng/mL High 0.00-0.04 [facility] Comment on above: Performed By: #### L [id number] ####[facility] ([facility])[address] [facility] [place] [address] Troponin I.cardiac [Mass/Vol] 0.11 ng/mL Critically high 0.00-0.04 [facility] Comment on above: Result Comment: CEE CARR INITIAL CRITICAL HIGH; RESPUN AND RETESTED Performed By: #### L [id number] ####[facility] ([facility])[address] [facility] [place] [address] 30on 06-29-2024 30 The patient is Moderately Stable - Low risk of patient condition declining or worsening The patient's goals for the shift include COMFORT The clinical goals for the shift include VSS Normal [facility] APTTon 06-29-2024 ACTIVATED PARTIAL THROMBOPLASTIN TIME IN PPP BY COAGULATION ASSAY 34.5 Seconds Normal 25.0-35.0 [facility] Comment on above: Order Comment: Basel ine aPTT before initiating heparin infusion. Result Comment: Clin ical significance of the APTT is questionable in the presence of heparin. Performed By: #### L [id number] #### [facility] ([facility]) [address] [place] [address] B-TYPE NATRIURETIC PEPTIDEon 06-29-2024 Natriuretic peptide B (Bld) [Mass/Vol] 222 pg/mL High 0-100 [facility] Comment on above: Performed By: #### L [id number] ####[facility] [place] [address] CBC WITH AUTO DIFFERENTIALon 06-29-2024 Basophils (Bld) [#/Vol] 0.05 10*3/uL Normal 0.00-0.20 [facility] Comment on above: Performed By: #### L [id number] ####[facility] ([facility])[address] [place] [address] Basophils/100 WBC (Bld) 0.6 % Normal 0.0-1.0 [facility] Comment on above: Performed By: #### L [id number] ####[facility] ([facility])[address] [place] [address] Eosinophils (Bld) [#/Vol] 0.18 10*3/uL Normal 0.00-0.50 [facility] Comment on above: Performed By: #### L [id number] ####[facility] ([facility])[address] [place] [address] Eosinophils/100 WBC (Bld) 2.1 % Normal 0.0-6.0 [facility] Comment on above: Performed By: #### L [id number] ####[facility] ([facility] [place] [address] Erythrocyte distribution width (RBC) [Ratio] 14.9 % Normal 11.5-15.0 [facility] Comment on above: Performed By: #### L [id number] ####[facility] ([facility] [place] [address] ERYTHROCYTE MEAN CORPUSCULAR HEMOGLOBIN CONCENTRATION (G/DL) BY AUTOMATED 32.9 g/dL Normal 32.0-35.0 [facility] Comment on above: Performed By: #### L [id number] ####[facility] [place] [address] Hematocrit (Bld) [Volume fraction] 35.9 % Low 36.0-48.0 [facility] Comment on above: Performed By: #### L [id number] ####[facility] (BEAKER)[address] [place] [address] Hemoglobin (Bld) [Mass/Vol] 11.8 g/dL Low 12.0-15.0 [facility] Comment on above: Performed By: #### L [id number] ####[facility] ([facility] [place] [address] Immature granulocytes (Bld) [#/Vol] 0.03 10*3/uL Normal 0.00-0.20 [facility] Comment on above: Performed By: #### L [id number] ####[facility] ([facility])[address] [place] [address] Immature granulocytes/100 WBC (Bld) 0.3 % Normal 0.0-1.0 [facility] Comment on above: Performed By: #### L [id number] ####[facility] ([facility])[address] [place] [address] Lymphocytes (Bld) [#/Vol] 2.02 10*3/uL Normal 1.20-4.00 [facility] Comment on above: Performed By: #### L [id number] ####[facility] (BEAKER)[address] [place] [address] Lymphocytes/100 WBC (Bld) 23.5 % Normal 20.0-45.0 [facility] Comment on above: Performed By: #### L [id number] ####[facility] (BEAKER)[address] [place] [address] MCH (RBC) [Entitic mass] 27.2 pg Normal 27.0-33.0 [facility] Comment on above: Performed By: #### L [id number] ####[facility] (BEAKER)[address] [place] [address] MCV (RBC) [Entitic vol] 82.7 fL Normal 82.0-98.0 [facility] Comment on above: Performed By: #### L [id number] ####[facility] (BEAKER)[address] [place] [address] Monocytes (Bld) [#/Vol] 0.56 10*3/uL Normal 0.10-1.00 [facility] Comment on above: Performed By: #### L [id number] ####[facility] (BEAKER)[address] [place] [address] Monocytes/100 WBC (Bld) 6.5 % Normal 5.0-12.0 [facility] Comment on above: Performed By: #### L [id number] ####[facility] (BEAKER)[address] [place] [address] Neutrophils (Bld) [#/Vol] 5.74 10*3/uL Normal 1.60-7.60 [facility] Comment on above: Performed By: #### L [id number] ####[facility] [place] [address] Neutrophils/100 WBC (Bld) 67.0 % Normal 40.0-72.0 [facility] Comment on above: Performed By: #### L [id number] ####[facility] (BEAKER)[address] [place] [address] NRBC (PER 100 WBCS) BY AUTOMATED COUNT 0.0 % Normal 0 [facility] Comment on above: Performed By: #### L [id number] ####[facility] (BEAKER)[address] [place] [address] PLATELETS (10*3/UL) IN BLOOD AUTOMATED COUNT 233 10*3/uL Normal 150-400 [facility] Comment on above: Performed By: #### L [id number] ####[facility] (BEAKER)[address] [place] [address] RBC (Bld) [#/Vol] 4.34 10*6/uL Normal 3.80-5.00 [facility] Comment on above: Performed By: #### L [id number] ####[facility] ([facility])[address] [place] [address] WBC (Bld) [#/Vol] 8.58 10*3/uL Normal 4.00-10.60 [facility] Comment on above: Performed By: #### L [id number] ####[facility] ([facility])[address] [place] [address] COMPREHENSIVE METABOLIC PANE Alec 06-29-2024 Albumin [Mass/Vol] 3.8 g/dL Normal 3.5-5.7 [facility] Comment on above: Performed By: #### L [id number] #### [facility] ([facility]) [address] [place] [address] ALP [Catalytic activity/Vol] 64 U/L Normal 34-104 [facility] Comment on above: Performed By: #### L [id number] #### [facility] ([facility]) [address] [place] [address] ALT [Catalytic activity/Vol] 35 U/L Normal 7-52 [facility] Comment on above: Performed By: #### L [id number] #### [facility] ([facility]) [address] [place] [address] Anion gap [Moles/Vol] 12 mmol/L Normal 7-20 [facility] Comment on above: Performed By: #### L [id number] #### [facility] ([facility]) [address] [place] [address] AST [Catalytic activity/Vol] 21 U/L Normal 13-39 [facility] Comment on above: Performed By: #### L [id number] #### [facility] ([facility]) [address] [place] [address] Bilirubin [Mass/Vol] 0.4 mg/dL Normal 0.3-1.0 [facility] Comment on above: Performed By: #### L [id number] #### [facility] (BEAKER) [address] [place] [address] Calcium [Mass/Vol] 8.5 mg/dL Low 8.6-10.3 [facility] Comment on above: Performed By: #### L [id number] #### [facility] [address] [place] [address] Chloride [Moles/Vol] 112 mmol/L High 98-107 [facility] Comment on above: Performed By: #### L [id number] #### [facility] ([facility]) [address] [place] [address] CO2 [Moles/Vol] 22 mmol/L Normal 21-31 [facility] Comment on above: Performed By: #### L [id number] #### [facility] ([facility]) [address] [place] [address] Creatinine [Mass/Vol] 0.92 mg/dL Normal 0.60-1.20 [facility] Comment on above: Performed By: #### L [id number] #### [facility] ([facility]) [address] [place] [address] GLOMERULAR FILTRATION RATE ML/MIN/1.73 SQ M.PREDICTED 71.3 mL/min/1.73m*2 Normal >60.0 [facility] Comment on above: Result Comment: [facility]???s estimated glomerular filtration rate (eGFR) will no [...] Performed By: #### L [id number] #### [facility] ([facility]) [address] [place] [address] Glucose [Mass/Vol] 108 mg/dL High 70-100 [facility] Comment on above: Performed By: #### L [id number] #### [facility] ([facility] [address] [place] [address] Potassium [Moles/Vol] 3.7 mmol/L Normal 3.5-5.1 [facility] Comment on above: Performed By: #### L [id number] #### [facility] ([facility]) [address] [place] [address] Protein [Mass/Vol] 6.1 g/dL Normal 6.0-8.3 [facility] Comment on above: Performed By: #### L [id number] #### [facility] ([facility]) [address] [place] [address] Sodium [Moles/Vol] 142 mmol/L Normal 136-145 [facility] Comment on above: Performed By: #### L [id number] #### [facility] ([facility]) [address] [place] [address] Urea nitrogen [Mass/Vol] 11 mg/dL Normal 7-25 [facility] Comment on above: Performed By: #### L [id number] #### [facility] ([facility]) [address] [place] [address] UREA NITROGEN/CREATININE (MASS RATIO) IN SER/PLAS 12.0 Normal [facility] Comment on above: Performed By: #### L [id number] #### [facility] ([facility]) [address] [place] [address] MAGNESIUMon 06-29-2024 Magnesium [Mass/Vol] 1.7 mg/dL Low 1.9-2.7 [facility] Comment on above: Performed By: #### L [id number] ####[facility] ([facility])[address] [place] [address] PHOSPHORUSon 06-29-2024 Magnesium [Mass/Vol] 2.9 mg/dL Normal 2.5-5.0 [facility] Comment on above: Performed By: #### L [id number] #### [facility] ([facility] [address] [place] [address] PROTIME-INRon 06-29-2024 INR IN PPP BY COAGULATION ASSAY 0.99 Normal 0.90-1.10 [facility] Comment on above: Result Comment: ACCC P [...] RANGE. CHEST 1995;108:231S-246S. Performed By: #### L [id number] #### [facility]) [address] [place] [address] PROTHROMBIN TIME (PT) IN PPP BY COAGULATION ASSAY 13.1 Seconds Normal 12.3-14.8 [facility] Comment on above: Performed By: #### L [id number] #### [facility]) [address] [place] [address] TROPONIN Ion 06-29-2024 Troponin I.cardiac [Mass/Vol] 0.10 ng/mL High 0.00-0.04 [facility] Comment on above: Performed By: #### L [id number] #### [facility] ([facility]) [address] [place] [address] Office Visiton 06-21-2024 Follow-up visit [id number] Aby Madrigal 1965 [facility] Provider Department [place] 06/21/2024 GOMEZ KENDALL RIAZ [place] Family History Problem Relation Age of Onset Lung cancer Mother No Known Problems Father Lung cancer Sister Family Status - Relation Status Age at Mother Father Sister Level of Service:88772 CA OFFICE/OUTPATIENT ESTABLISHED MOD MDM 30 MIN Normal [facility] Office Visiton 05-26-2024 Follow-up visit [id number] Aby Madrigal 1965 F Date Provider Department Center 05/26/2024 [id number] LICEA RIAZ [facility] Family History Problem Relation Age of Onset Lung cancer Mother No Known Problems Father Lung cancer Sister Family Status - Relation Status Age at Mother Father Sister Level of Service:59965 CA OFFICE/OUTPATIENT NEW MODERATE MDM 45 MINUTES Normal [facility] Outside Colonoscopyon 2022 Outside Colonoscopy [id number] 0CD:127 Normal [facility] Reminderson 11-27-2022 Reminders - From: Na Hayes LPN To: GSN - Clinical; Sent: 11/27/2022 12:46:10 EST Show up: 10/25/2032 07:00:00 EST Subject: colonoscopy recall Due Date/Time: 11/25/2032 07:00:00 EST Reminder/Recall Patient is due for screening colonoscopy 11/25/2032. Normal [facility] Lab Reportson 11-24-2022 Lab Reports [id number]#[id number] 0CD:127 Normal [facility] Covid-19 PCR (CVDTBH)on 10-24 SARS-CoV-2 (COVID-19) RNA BECK+probe Ql (Unsp spec) Not detected Normal NOT DETECTED [facility] Comment on above: Result Comment: This test is not yet approved or cleared by the [place] FDA. When there are no FDA-approved or cleared tests available, and other criteria are met, FDA can make tests available under an emergency access mechanism called an Emergency Use Authorization (EUA). The EUA for this test is supported by the [place] of Health and Human Service's (HHS's) declaration [...] consistent with SARS-CoV-2. Performed By: #### C [facility] #### [facility] [address] [place] [address] Dr. Rich Cutler Consent for Procedure/Surger yon 10-07-2022 Consent for Procedure/Surgery [id number] 0CD:127 Normal [facility] Ambulatory Visit Summaryon 1 12-06-2021 Ambulatory Visit Summary ABY MADRIGAL :1965 Visit Date:10/06/2022 Ambulatory Visit Instructions Your Care Team Attending Physician - DIPESH BUCKNER, Umm Michael Primary Care Physician - Kendra Moran MD This Is Your Medications List Contact [...] for. Allergic conjunctivitis Anticoagulated Kidney stones Normal [facility] VC VENOUS REFLUX NINO LMTon 1 12-02-2021 VC VENOUS REFLUX NINO LMT Patient: ABY MADRIGAL Exam Date: 10/02/2022 : 1965 Gender:F Ordering : DR KENDRA MORAN . Admission #: [id number] Family : Order #: [id number] CLICK HERE TO VIEW EXAM RADIOLOGY REPORT [...] chronic thrombus visualized Compressibility: Normal Flow: Normal Account Manager Relief: Dist/med calf 3.3mm with 0s reflux. Tech Note: Incompetent SFJ and GSV. Patent varicose vein mid/med calf 2.9mm with 0s reflux. Patent varicose vein prox/post calf 3.8mm with 0s reflux. Patent varicose vein dist/med thigh 3.8mm with 2.0s reflux. CONCLUSION: 1. Mild right and aozb-hd-duenjgyf left great saphenous vein venous insufficiency with dilatation 2. Left saphenous popliteal junction reflux 3. Mild left anterior accessory saphenous vein venous insufficiency without dilatation 4. Small bilateral incompetent varicose veins Dictated by: Adelia Lezama MD on 10/02/2022 at 13:36 Approved by: Adelia Lezama MD on 10/02/2022 at 13:52 Normal [facility] ECHOCARDIO M/2D COMPLETEon 1 11-30-2021 ECHOCARDIO M/2D COMPLETE Patient: ABY MADRIGAL Exam Date: 09/30/2022 : 1965 Gender:F Ordering : DR KENDRA MORAN . Admission #: [id number] Family : Order #: [id number] CLICK HERE TO VIEW EXAM ECHOCARDIOGRAM REPORT [...] M.D. on 09/30/2022 at 18:37 Normal [facility] BNPon 09-24-2022 Natriuretic peptide B (Bld) [Mass/Vol] 501.0 pg/mL Normal <=900.0 [facility] Comment on above: Performed By: #### C VDTB #### [facility] [address] [place] [address] Dr. Rich Cutler CBC AUTO DIFFon 09-24-2022 BASO # 0.1 103/ul Normal 0.0-0.1 [facility] Comment on above: Performed By: #### C VDTB #### [facility] [address] [place] [address] Dr. Rich Cutler Basophils/100 WBC (Bld) 0.8 % Normal 0.2-2.0 [facility] Comment on above: Performed By: #### C VDTBH #### [facility] [address] [place] [address] Dr. Rich Cutler EO # 0.3 103/ul Normal 0.0-0.7 [facility] Comment on above: Performed By: #### C VDTBH #### [facility] [address] [place] [address] Dr. Rich Cutler Eosinophils/100 WBC (Bld) 3.4 % Normal 0.9-7.0 [facility] Comment on above: Performed By: #### C VDTBH #### [facility] [address] [place] [address] Dr. Rich Cutler Erythrocyte distribution width (RBC) [Ratio] 13.3 % Normal 11.0-15.0 [facility] Comment on above: Performed By: #### C VDTBH #### [facility] [address] [place] [address] Dr. Rich Cutler Hematocrit (Bld) [Volume fraction] 40.5 % Normal 36.0-48.0 [facility] Comment on above: Performed By: #### C VDTBH #### [facility] [address] [place] [address] Dr. Rich Cutler Hemoglobin (Bld) [Mass/Vol] 13.1 g/dL Normal 12.0-16.0 [facility] Comment on above: Performed By: #### C VDTBH #### [facility] [address] [place] [address] Dr. Rich Cutler IG # 0.02 10e3/ul Normal 0.00-0.03 [facility] Comment on above: Performed By: #### C VDTBH #### [facility] [address] [place] [address] Dr. Rich Cutler IG % 0.3 % Normal 0.0-0.5 [facility] Comment on above: Performed By: #### C VDTBH #### [facility] [address] [place] [address] Dr. Rich Cutler LYMPH # 2.7 103/ul Normal 1.2-3.8 [facility] Comment on above: Performed By: #### C VDTBH #### [facility] [address] [place] [address] Dr. Rich Cutler Lymphocytes/100 WBC (Bld) 35.4 % Normal 20.5-60.0 [facility] Comment on above: Performed By: #### C VDTBH #### [facility] [address] [place] [address] Dr. Rich Cutler MANUAL DIFF REQ NO Normal [facility] Comment on above: Performed By: #### C VDTBH #### [facility] [address] [place] [address] Dr. Rich Cutler MCH (RBC) [Entitic mass] 28.2 pg Normal 26.7-34.0 [facility] Comment on above: Performed By: #### C VDTBH #### [facility] [address] [place] [address] Dr. Rich Cutler MCHC (RBC) [Mass/Vol] 32.3 g/dL Normal 29.9-35.2 [facility] Comment on above: Performed By: #### C VDTBH #### [facility] [address] [place] [address] Dr. Rich Cutler MCV (RBC) [Entitic vol] 87.3 fL Normal 81.0-99.0 [facility] Comment on above: Performed By: #### C VDTBH #### [facility] [address] [place] [address] Dr. Rich Cutler MONO # 0.5 103/ul Normal 0.3-0.8 [facility] Comment on above: Performed By: #### C VDTBH #### [facility] [address] [place] [address] Dr. Rich Cutler Monocytes/100 WBC (Bld) 6.5 % Normal 1.7-12.0 [facility] Comment on above: Performed By: #### C VDTBH #### [facility] [address] [place] [address] Dr. Rich Cutler NEUT # 4.1 103/ul Normal 1.4-6.5 [facility] Comment on above: Performed By: #### C VDTBH #### [facility] [address] [place] [address] Dr. Rich Cutler Neutrophils/100 WBC (Bld) 53.6 % Normal 43.0-75.0 [facility] Comment on above: Performed By: #### C VDTBH #### [facility] [address] [place] [address] Dr. Rich Cutler Platelet mean volume (Bld) [Entitic vol] 10.3 fL Normal 9.5-13.5 [facility] Comment on above: Performed By: #### C VDTBH #### [facility] [address] [place] [address] Dr. Rich Cutler PLT 283 103/ul Normal 150-450 [facility] Comment on above: Performed By: #### C VDTBH #### [facility] [address] [place] [address] Dr. Rich Cutler RBC 4.64 106/ul Normal 4.20-5.40 [facility] Comment on above: Performed By: #### C VDTBH #### [facility] [address] [place] [address] Dr. Rich Cutler WBC 7.6 103/ul Normal 4.0-11.0 [facility] Comment on above: Performed By: #### C VDTBH #### [facility] [address] [place] [address] Dr. Rich Cutler INSULINon 09-24-2022 Insulin 15.1 uIU/mL Normal 2.6-24.9 [facility] Comment on above: Performed By: #### C VDTBH #### [facility] [address] [place] [address] Dr. Rich Cutler PROF 14(COMP METB)on 022 Albumin [Mass/Vol] 3.5 g/dL Normal 3.4-5.0 [facility] Comment on above: Performed By: #### C VDTBH #### [facility] [address] [address] [address] Rich Cutler Albumin/Globulin [Mass ratio] 1.0 {ratio} Normal [facility] Comment on above: Performed By: #### C VDTBH #### [facility] [address] [address] [address] Rich Cutler ALP [Catalytic activity/Vol] 91 U/L Normal 46-116 [facility] Comment on above: Performed By: #### C VDTBH #### [facility] [address] [address] [address] Rich Cutler ALT [Catalytic activity/Vol] 47 U/L Normal 14-59 [facility] Comment on above: Performed By: #### C VDTBH #### [facility] [address] [place] [address] Dr. Rich Cutler Anion gap [Moles/Vol] 11.7 mmol/L Normal [facility] Comment on above: Performed By: #### C VDTBH #### [facility] [address] [place] [address] Dr. Rich Cutler AST [Catalytic activity/Vol] 24 U/L Normal 15-37 [facility] Comment on above: Performed By: #### C VDTBH #### [facility] [address] [place] [address] Dr. Rich Cutler Bilirubin [Mass/Vol] 0.2 mg/dL Normal 0.2-1.0 [facility] Comment on above: Performed By: #### C VDTBH #### [facility] [address] [address] [address] Rich Cutler Calcium [Mass/Vol] 8.9 mg/dL Normal 8.5-10.1 [facility] Comment on above: Performed By: #### C VDTBH #### [facility] [address] [place] [address] Dr. Rich Cutler Chloride [Moles/Vol] 105 mmol/L Normal 98-107 [facility] Comment on above: Performed By: #### C VDTBH #### [facility] [address] [address] [address] Rich Cutler CO2 [Moles/Vol] 28.1 mmol/L Normal 21.0-32.0 [facility] Comment on above: Performed By: #### C VDTBH #### [facility] [address] [address] [address] Rich Cutler Creatinine [Mass/Vol] 1.13 mg/dL Critically high 0.55-1.02 [facility] Comment on above: Performed By: #### C VDTBH #### [facility] [address] [address] [address] Rich Cutler EGFR-AF BANGLADESHI 60 mL/min/1.73m2 Normal >=60 [facility] Comment on above: Performed By: #### C VDTBH #### [facility] [address] [place] [address] Dr. Rich Cutler EGFR-NON AF BANGLADESHI 49 mL/min/1.73m2 Critically low >=60 [facility] Comment on above: Performed By: #### C VDTBH #### [facility] [address] [address] [address] Rich Cutler Globulin (S) [Mass/Vol] 3.5 g/dL Normal [facility] Comment on above: Performed By: #### C VDTBH #### [facility] [address] [place] [address] Dr. Rich Cutler Glucose [Mass/Vol] 119 mg/dL Critically high 74-106 [facility] Comment on above: Performed By: #### C VDTBH #### [facility] [address] [address] [address] Rich Cutler Potassium [Moles/Vol] 3.8 mmol/L Normal 3.5-5.1 [facility] Comment on above: Performed By: #### C VDTBH #### [facility] [address] [address] [address] Rich Cutler Protein [Mass/Vol] 7.0 g/dL Normal 6.4-8.2 [facility] Comment on above: Performed By: #### C VDTBH #### [facility] [address] [address] [address] Rich Cutler Sodium [Moles/Vol] 141 mmol/L Normal 136-145 [facility] Comment on above: Performed By: #### C VDTBH #### [facility] [address] [address] [address] Rich Cutler Urea nitrogen [Mass/Vol] 16.0 mg/dL Normal 7.0-18.0 [facility] Comment on above: Performed By: #### C VDTBH #### [facility] [address] [address] [address] Rich Cutler Urea nitrogen/Creatinine [Mass ratio] 14.2 mg/mg Normal [facility] Comment on above: Performed By: #### C VDTBH #### [facility] [address] [address] [address] Rich Cutler TROPONIN, HIGH SENSITIVITYon 09-24-2022 HSTROP 10.6 pg/mL Normal 4.0-51.3 [facility] Comment on above: Result Comment: CUT- OFF POINTS HAVE BEEN ESTABLISHED BASED ON THE FOURTH UNIVERSAL DEFINITIONS OF MYOCARDIAL INFARCTION. THE UPPER REFERENCE LIMIT (URL) OF TROPONIN, DEFINED THE 99TH PERCENTILE OF cTnI DISTRIBUTION IN A REFERENCE POPULATION, HAS BEEN CONFIRMED THE DECISION THRESHOLD FOR SD DIAGNOSIS. Performed By: #### C VDTBH #### [facility] [address] [place] [address] Dr. Rich Cutler XR CHEST 1 Von [...] by: UMM HUMPHRIES Date: 2022-09-24 04:08 Normal [facility] CBC AUTO DIFFon 09-23-2022 BASO # 0.1 103/ul Normal 0.0-0.1 [facility] Comment on above: Performed By: #### C BC #### [facility] [address] [place] [address] Dr. Rich Cutler Basophils/100 WBC (Bld) 0.8 % Normal 0.2-2.0 [facility] Comment on above: Performed By: #### C BC #### [facility] [address] [place] [address] Dr. Rich Cutler EO # 0.2 103/ul Normal 0.0-0.7 [facility] Comment on above: Performed By: #### C BC #### [facility] [address] [place] [address] Dr. Rich Cutler Eosinophils/100 WBC (Bld) 3.5 % Normal 0.9-7.0 [facility] Comment on above: Performed By: #### C BC #### [facility] [address] [place] [address] Dr. Rich Cutler Erythrocyte distribution width (RBC) [Ratio] 13.4 % Normal 11.0-15.0 [facility] Comment on above: Performed By: #### C BC #### [facility] [address] [place] [address] Dr. Rich Cutler Hematocrit (Bld) [Volume fraction] 42.3 % Normal 36.0-48.0 [facility] Comment on above: Performed By: #### C BC #### [facility] [address] [place] [address] Dr. Rich Cutler Hemoglobin (Bld) [Mass/Vol] 13.4 g/dL Normal 12.0-16.0 [facility] Comment on above: Performed By: #### C BC #### [facility] [address] [place] [address] Dr. Rich Cutler IG # 0.03 10e3/ul Normal 0.00-0.03 [facility] Comment on above: Performed By: #### C BC #### [facility] [address] [place] [address] Dr. Rich Cutler IG % 0.5 % Normal 0.0-0.5 [facility] Comment on above: Performed By: #### C BC #### [facility] [address] [place] [address] Dr. Rich Cutler LYMPH # 2.9 103/ul Normal 1.2-3.8 [facility] Comment on above: Performed By: #### C BC #### [facility] [address] [place] [address] Dr. Rich Cutler Lymphocytes/100 WBC (Bld) 44.0 % Normal 20.5-60.0 [facility] Comment on above: Performed By: #### C BC #### [facility] [address] [place] [address] Dr. Rich Cutler MANUAL DIFF REQ NO Normal [facility] Comment on above: Performed By: #### C BC #### [facility] [address] [place] [address] Dr. Rich Cutler MCH (RBC) [Entitic mass] 28.4 pg Normal 26.7-34.0 [facility] Comment on above: Performed By: #### C BC #### [facility] [address] [place] [address] Dr. Rich Cutler MCHC (RBC) [Mass/Vol] 31.7 g/dL Normal 29.9-35.2 [facility] Comment on above: Performed By: #### C BC #### [facility] [address] [place] [address] Dr. Rich Cutler MCV (RBC) [Entitic vol] 89.6 fL Normal 81.0-99.0 [facility] Comment on above: Performed By: #### C BC #### [facility] [address] [place] [address] Dr. Rich Cutler MONO # 0.4 103/ul Normal 0.3-0.8 [facility] Comment on above: Performed By: #### C BC #### [facility] [address] [place] [address] Dr. Rich Cutler Monocytes/100 WBC (Bld) 6.6 % Normal 1.7-12.0 [facility] Comment on above: Performed By: #### C BC #### [facility] [address] [place] [address] Dr. Rich Cutler NEUT # 2.9 103/ul Normal 1.4-6.5 [facility] Comment on above: Performed By: #### C BC #### [facility] [address] [place] [address] Dr. Rich Cutler Neutrophils/100 WBC (Bld) 44.6 % Normal 43.0-75.0 [facility] Comment on above: Performed By: #### C BC #### [facility] [address] [place] [address] Dr. Rich Cutler Platelet mean volume (Bld) [Entitic vol] 11.0 fL Normal 9.5-13.5 [facility] Comment on above: Performed By: #### C BC #### [facility] [address] [place] [address] Dr. Rich Cutler PLT 272 103/ul Normal 150-450 [facility] Comment on above: Performed By: #### C BC #### [facility] [address] [place] [address] Dr. Rich Cutler RBC 4.72 106/ul Normal 4.20-5.40 [facility] Comment on above: Performed By: #### C BC #### [facility] [address] [place] [address] Dr. Rich Cutler WBC 6.5 103/ul Normal 4.0-11.0 [facility] Comment on above: Performed By: #### C BC #### [facility] [address] [place] [address] Dr. Rich Cutler FREE THYROXINE INDEX T7on FTI 2.16 Normal 1.30-4.50 [facility] Comment on above: Performed By: #### L IPID, TSH, T7, CMP #### [facility] [address] [place] [address] Dr. Rich Cutler T3U 30.0 % Normal 30.0-39.0 [facility] Comment on above: Performed By: #### L IPID, TSH, T7, CMP #### [facility] [address] [address] [address] Rich Cutler T4 [Mass/Vol] 7.20 ug/dL Normal 4.80-13.90 [facility] Comment on above: Performed By: #### L IPID, TSH, T7, CMP #### [facility] [address] [address] [address] Rich Cutler GLYCOHEMOGLOBIN A1Con 2021 ADA RECOMMENDATION SEE BELOW Normal [facility] Comment on above: Result Comment: ADA RECOMMENDED LIMIT 4.0 - 6.0 ADA THERAPEUTIC TARGET < 7.0 ACTION SUGGESTED > 7.0 Performed By: #### A 1C #### [facility] [address] [place] [address] Dr. Rich Cutler Glucose [Mass/Vol] 128 mg/dL Normal [facility] Comment on above: Performed By: #### A 1C #### [facility] [address] [place] [address] Dr. Rich Cutler HbA1c (Bld) [Mass fraction] 6.1 % Normal 4.5-6.2 [facility] Comment on above: Performed By: #### A 1C #### [facility] [address] [place] [address] Dr. Rich Cutler IRONon 09-23-2022 Iron [Mass/Vol] 64.0 ug/dL Normal 50.0-170.0 [facility] Comment on above: Performed By: #### C VDTBH #### [facility] [address] [place] [address] Dr. Rich Cutler LIPID PROFILEon 09-23-2022 CHOL-HDL RATIO NORM SEE BELOW Normal [facility] Comment on above: Result Comment: 3.3 - 4.4 LOW RISK 4.4 - 7.1 AVERAGE RISK 7.1 - 11.0 MODERATE RISK >11.0 HIGH RISK Performed By: #### L IPID, TSH, T7, CMP #### [facility] [address] [place] [address] Dr. Rich Cutler Cholesterol [Mass/Vol] 237 mg/dL Critically high <=200 [facility] Comment on above: Performed By: #### L IPID, TSH, T7, CMP #### [facility] [address] [address] [address] Rich Cutler Cholesterol in HDL [Mass/Vol] 44 mg/dL Normal 40-60 [facility] Comment on above: Performed By: #### L IPID, TSH, T7, CMP #### [facility] [address] [address] [address] Rich Cutler Cholesterol in LDL [Mass/Vol] 172.2 mg/dL Normal [facility] Comment on above: Performed By: #### L IPID, TSH, T7, CMP #### [facility] [address] [place] [address] Dr. Rich Cutler Cholesterol.total/C holesterol in HDL [Mass ratio] 5.4 {ratio} Normal [facility] Comment on above: Performed By: #### L IPID, TSH, T7, CMP #### [facility] [address] [address] [address] Rich Cutler HDL NORMAL > or = 60 mg/dl - LO W CARDIOVASCULAR RISK <40 mg/dl - HIGH CARDIOVASCULAR RISK Normal [facility] Comment on above: Performed By: #### L IPID, TSH, T7, CMP #### [facility] [address] [address] [address] Rich Cutler LDL CALC NORMAL SEE BELOW Normal [facility] Comment on above: Result Comment: <100 mg/dl OPTIMAL 100 - 129 mg/dl NEAR OR ABOVE OPTIMAL 130 - 159 mg/dl BORDERLINE HIGH 160 - 189 mg/dl HIGH >190 mg/dl VERY HIGH Performed By: #### L IPID, TSH, T7, CMP #### [facility] [address] [address] [address] Rich Cutler Triglyceride [Mass/Vol] 104 mg/dL Normal <=150 [facility] Comment on above: Performed By: #### L IPID, TSH, T7, CMP #### [facility] [address] [address] [address] Rich Cutler VLDL CALC 20.8 mg/dL Normal [facility] Comment on above: Performed By: #### L IPID, TSH, T7, CMP #### [facility] [address] [address] [address] Rich Cutler PROF 14(COMP METB)on 022 Albumin [Mass/Vol] 3.5 g/dL Normal 3.4-5.0 [facility] Comment on above: Performed By: #### L IPID, TSH, T7, CMP #### [facility] [address] [address] [address] Rich Cutler Albumin/Globulin [Mass ratio] 0.9 {ratio} Normal [facility] Comment on above: Performed By: #### L IPID, TSH, T7, CMP #### [facility] [address] [place] [address] Dr. Rich Cutler ALP [Catalytic activity/Vol] 93 U/L Normal 46-116 [facility] Comment on above: Performed By: #### L IPID, TSH, T7, CMP #### [facility] [address] [place] [address] Dr. Rich Cutler ALT [Catalytic activity/Vol] 44 U/L Normal 14-59 [facility] Comment on above: Performed By: #### L IPID, TSH, T7, CMP #### [facility] [address] [place] [address] Dr. Rich Cutler Anion gap [Moles/Vol] 8.5 mmol/L Normal [facility] Comment on above: Performed By: #### L IPID, TSH, T7, CMP #### [facility] [address] [place] [address] Dr. Rich Cutler AST [Catalytic activity/Vol] 26 U/L Normal 15-37 [facility] Comment on above: Performed By: #### L IPID, TSH, T7, CMP #### [facility] [address] [place] [address] Dr. Rich Cutler Bilirubin [Mass/Vol] 0.3 mg/dL Normal 0.2-1.0 [facility] Comment on above: Performed By: #### L IPID, TSH, T7, CMP #### [facility] [address] [address] [address] Rich Cutler Calcium [Mass/Vol] 9.0 mg/dL Normal 8.5-10.1 [facility] Comment on above: Performed By: #### L IPID, TSH, T7, CMP #### [facility] [address] [place] [address] Dr. Rich Cutler Chloride [Moles/Vol] 106 mmol/L Normal 98-107 [facility] Comment on above: Performed By: #### L IPID, TSH, T7, CMP #### [facility] [address] [place] [address] Dr. Rich Cutler CO2 [Moles/Vol] 31.0 mmol/L Normal 21.0-32.0 [facility] Comment on above: Performed By: #### L IPID, TSH, T7, CMP #### [facility] [address] [place] [address] Dr. Rich Cutler Creatinine [Mass/Vol] 1.11 mg/dL Critically high 0.55-1.02 [facility] Comment on above: Performed By: #### L IPID, TSH, T7, CMP #### [facility] [address] [place] [address] Dr. Rich Cutler EGFR-AF BANGLADESHI >60 Normal >=60 [facility] Comment on above: Performed By: #### L IPID, TSH, T7, CMP #### [facility] [address] [place] [address] Dr. Rich Cutler EGFR-NON AF BANGLADESHI 50 mL/min/1.73m2 Critically low >=60 [facility] Comment on above: Performed By: #### L IPID, TSH, T7, CMP #### [facility] [address] [place] [address] Dr. Rich Cutler Globulin (S) [Mass/Vol] 3.7 g/dL Normal [facility] Comment on above: Performed By: #### L IPID, TSH, T7, CMP #### [facility] [address] [place] [address] Dr. Rich Cutler Glucose [Mass/Vol] 121 mg/dL Critically high 74-106 T [facility] Comment on above: Performed By: #### L IPID, TSH, T7, CMP #### [facility] [address] [place] [address] Dr. Rich Cutler Potassium [Moles/Vol] 4.5 mmol/L Normal 3.5-5.1 [facility] Comment on above: Performed By: #### L IPID, TSH, T7, CMP #### [facility] [address] [place] [address] Dr. Rich Cutler Protein [Mass/Vol] 7.2 g/dL Normal 6.4-8.2 [facility] Comment on above: Performed By: #### L IPID, TSH, T7, CMP #### [facility] [address] [place] [address] Dr. Rich Cutler Sodium [Moles/Vol] 141 mmol/L Normal 136-145 [facility] Comment on above: Performed By: #### L IPID, TSH, T7, CMP #### [facility] [address] [place] [address] Dr. Rich Cutler Urea nitrogen [Mass/Vol] 16.0 mg/dL Normal 7.0-18.0 [facility] Comment on above: Performed By: #### L IPID, TSH, T7, CMP #### [facility] [address] [place] [address] Dr. Rich Cutler Urea nitrogen/Creatinine [Mass ratio] 14.4 mg/mg Normal [facility] Comment on above: Performed By: #### L IPID, TSH, T7, CMP #### [facility] [address] [place] [address] Dr. Rich Cutler TSHon 09-23-2022 TSH 3.915 uIU/mL Critically high 0.358-3.740 [facility] Comment on above: Performed By: #### L IPID, TSH, T7, CMP #### [facility] [address] [place] [address] Dr. Rich Cutler Physician Referralon 022 Physician Referral [phone] [id number] Normal [facility] Lipid Panelon 10-07-2021 Cholesterol [Mass/Vol] 205 mg/dL High 140-200 [facility] Comment on above: Result Comment: Chol less than 200 mg/dl low risk Chol 201-239 mg/dl borderline risk Chol 240 mg/dl and greater high risk Performed By: #### L IPID, [id number], TSH3 wRFLX #### [facility] [address] [id number] [place] Cholesterol in HDL [Mass/Vol] 25 mg/dL Low 35-85 [facility] Comment on above: Result Comment: HDL CHOL ATP-III CLASSIFICATION Cardiovascular Risk HDL > or equal to 60 mg/dL LOW HDL < 40 mg/dL HIGH Performed By: #### L IPID, [id number], TSH3 wRFLX #### [facility] [address] [id number] [facility] Cholesterol.total/C holesterol in HDL [Mass ratio] 8.2 {ratio} Normal <5.0 [facility] Comment on above: Performed By: #### L IPID, [id number], TSH3 wRFLX #### [facility] [address] [id number] [place] LDL Cholesterol,Calcula coby 160 mg/dL High 0-100 [facility] Comment on above: Result Comment: LDL ATP III CLASSIFICATION LDL less than 100 mg/dL Optimal LDL 100-129 mg/dL Near or above optimal LDL 130-159 mg/dL Borderline high LDL 160-189 mg/dL High LDL greater than 189 mg/dL Very high Performed By: #### L IPID, [id number], TSH3 wRFLX #### [facility] [address] [id number] [place] Triglyceride w/Reflex 100 mg/dL Normal 35-149 [facility] Comment on above: Result Comment: TRIG ATP III CLASSIFICATION TRIG less than 150 mg/dL Normal TRIG 150-199 mg/dL Borderline high TRIG 200-500 mg/dL High TRIG greater than 500 mg/dL Very high Standard traceable to the Center for Disease Conrtrol and Prevention (CDC) test method. Performed By: #### L IPID, [id number], TSH3 wRFLX #### [address] VLDL CHOLESTEROL 20 mg/dL Normal [facility] Comment on above: Performed By: #### L IPID, [id number], TSH3 wRFLX #### [address] Thyroid Stim Hormone w/Rflxo n 10-07-2021 Thyroid Stim Hormone w/Rflx 3.27 u[iU]/mL Normal 0.45-5.33 [facility] Comment on above: Performed By: #### L IPID, [id number], TSH3 wRFLX #### [address] Vitamin D 25 Hydroxy Totalon 10-07-2021 Vitamin D 25 Hydroxy Total 26.5 ng/mL Low 30-100 [facility] Comment on above: Result Comment: JACKELINE MIN D STATUS 25(OH)VITAMIN D RANGE (ng/mL) Deficient <20 Insufficient 20 to <30 Sufficient 30 to 100 Reference: Lanny MF,Gino NC, Dyan VALENZUELA, et al. Evaluation,treatment, and prevention of vitamin D deficiency; an Endocrine Society clinical practice guideline. JCEM. 2010; 96(7):1911-30. PERFORMED BY: [place] [address] PATHOLOGIST REPAIRER [employer] SILVE[employer]RE SCHULER M.D. Performed By: #### L IPID, [id number], TSH3 wRFLX #### [address] Vital Signs Date Time Vital Sign Value Performing Clinician Deidre gagnon 10-06-2022 15:36-0500 Blood Pressure Location Umm LANDON [facility] 10-06-2022 15:36-0500 Diastolic blood pressure 86 mm[Hg] Umm LANDON [facility] 10-06-2022 15:36-0500 Heart rate 72 /min Umm LANDON [facility] 10-06-2022 15:36-0500 Respiratory rate 16 /min Umm LANDON [facility] 10-06-2022 15:36-0500 Systolic blood pressure 126 mm[Hg] Umm JACQUESMami [facility] Encounters Encounter Date Encounter Type Care Provider Facility Start: 09-04-2024 End: [facility]: 08-29-[facility]24 End: 08-29-2024 ambulatory [facility] Start: 08-04-2024 End: 08-04-2024 ambulatory [facility] Start: 07-20-2024 ambulatory [facility] Start: 07-18-2024 ambulatory [facility] Start: 07-18-2024 End: 07-18-2024 Emergency department patient visit HERMINIA JULIAN [facility] Start: 07-18-2024 End: 07-18-2024 ambulatory [facility] Start: 07-11-2024 Evaluation and manag ement of inpatient [facility] Start: 07-11-2024 Emergency department patient visit FEDERICA ANDEROSN [facility] Start: 07-11-2024 End: 07-12-2024 Evaluation and management of inpatient JOSE BETANCUR [facility] Start: 07-10-2024 End: 07-10-[facility]24 [facility] Start: 06-30-2024 Evaluation and manag ement of inpatient [facility] Start: 06-30-2024 Evaluation and manag ement of inpatient [facility] Start: 06-29-2024 End: 07-01-2024 Evaluation and management of inpatient KENDRA HOY [facility] Start: 06-21-2024 End: 06-21-2024 ambulatory GOMEZ SPENCE [facility] Start: 05-26-2024 End: 05-26-2024 ambulatory BIJAN LICEA [facility] Start: 11-26-2022 Encounter for preprocedural laboratory examination DR UMM LANDON . [facility] Start: 11-25-2022 End: 11-26-2022 ambulatory Umm LANDON Facility:CD:[id number] Start: 11-20-2022 End: 11-21-[address] UMM LANDON . Facility:[facility] Start: 11-20-2022 End: 11-21-2022 Encounter for preprocedural laboratory examination DR UMM LANDON . Facility: Start: 10-06-2022 End: 10-07-2022 ambulatory Umm LANDON Facility:[facility] Start: 10-06-2022 End: 10-06-2022 Patient encounter procedure Umm LANDON [facility] Start: 10-02-2022 End: 10-03-[address] KENDRA MORAN . Facility:[facility] Start: 09-30-2022 End: 10-01-[address] KENDRA MORAN . Facility:[facility] Start: 09-28-2022 Encounter for genera l adult medical examination without abnormal findings DR KENDRA MORAN . [facility] Start: 09-24-2022 End: 09-24-[address] SYBIL CORDOVA . Facility:[facility] Start: 09-23-2022 End: 09-24-[address] KENDRA MORAN . Facility:[facility] Start: 09-23-2022 End: 09-24-2022 Encounter for general adult medical examination without abnormal findings DR KENDRA MORAN . Facility:[facility] Start: 09-14-[address] KENDRA MORAN . Facili ty:[facility] Procedures Date Procedure Procedure Detail Performing Clinician Start: 08-29-2019 Cystoscopic removal of ureteric stent Umm LANDON Bilateral tubal ligation Ad LANDON Catheterization of l eft heart Umm JACQUESL Cholecystectomy Umm JACQUESL Cystoscopic insertio n of ureteric stent Umm JACQUESL Dilation and curetta ge of uterus Umm JACQUESL Vaginal hysterectomy Umm JACQUESL Immunizations Immunization Date Immunization Notes Care Provider Fa cility 04-14-2021 SARS-CoV-2 (COVID-19 ) mRNA BNT-162b2 vax Umm JACQUESL [facility] 03-11-2021 SARS-CoV-2 (COVID-19 ) mRNA BNT-162b2 vax Umm JACQUESL [facility] Payers Date Payer Category Payer Medicaid [id number] 1965 Unknown [id number] 2.16.8 [id number] 1965 Unknown [id number] 2.16.8 [id number] 1965 Unknown [id number] 2.16.84 [id number] 1965 Unknown [id number] 2.16.84 [id number] 1965 Unknown [id number] 2.16.84 [id number] 1965 Unknown [id number] 2.16.84 [id number] 1965 Unknown [id number] 2.16.84 [id number] 1965 Unknown [id number] 2.16.84 [id number] 1965 Unknown [id number] 2.16.84 [id number] 1960 Self-pay [id number] 1960 Unknown [id number] Social History Date Type Detail Facility Start: 10-06-2022 Tobacco smoking status Ex-smoker ([facility] Tobacco smoking status Never [facility] Sex Assigned At Female [facility] Functional Status Date Assessment Result Facility 10-06-2022 Functional Status N/A [facility] Clinical Notes 10-11-2022 to 09-04-2024 Note Date & Type Note Facility 09-04-2024 Note [place] Cardiology - [facility] Ceasar Madrigal is a 59 y.o. year old female patient being seen for follow up [facility] in Jun 2024 for hypotension. She says Dr. Moran increased carvedilol to 25mg TID since last visit. He also stopped clonidine, losartan, and spironolactone. She was started on hydralazine TID PRN. She also thinks he told her to increase isosorbide to 2 tablets daily but she has not made this change. She had pneumonia a few weeks ago and is still recovering. Patient Active Problem List Diagnosis BV (bacterial vaginosis) GERD (gastroesophageal reflux disease) Essential hypertension Sepsis (CMS/HCC) TIA (transient ischemic attack) QURESHI (dyspnea on exertion) Hyperlipidemia Murmur, heart Anxiety Type 2 diabetes mellitus without complication, without long-term current use of insulin (CMS/HCC) Chest pain Elevated troponin Hypomagnesemia NSTEMI (non-ST elevated myocardial infarction) (CMS/HCC) Hypokalemia Coronary artery disease involving [place] coronary artery of [place] heart without angina pectoris Depression, major, severe recurrence (CMS/HCC) Panic disorder Family History Problem Relation Name Age of Onset Lung cancer Mother No Known Problems Father Lung cancer Sister Social History Tobacco Use Smoking status: Former Packs/day: 1.00 Years: 45.00 Additional pack years: 0.00 Total pack years: 45.00 Types: Cigarettes Quit date: 2021 Years since quittin.7 Smokeless tobacco: Never Substance Use Topics Alcohol use: Not Currently Comment: Used to drink a lot on the weekend Drug use: Never KHLOE Badillo is seen in follow up. She is a 59-year-old woman who was [...] She then presented to the emergency room twice on 06/13 and on 06/17/2024] because of nausea and vomiting and was found to have elevated blood pressure and an EKG was performed and there was new T wave inversions in 1, aVL, V5 and V6. She was then admitted to [facility] on 07/11/2024 with NSTEMI. She underwent cardiac catheterization and PCI. She recently started cardiac rehab but then had to stop because of pneumonia and she is currently recovering and has just resumed it. Recently her blood pressure medications have been adjusted and her blood pressure has been much better controlled. She is taking hydralazine on an as-needed basis. Her main antihypertensive therapy consists of carvedilol 25 mg 3 times daily and isosorbide mononitrate 60 mg daily. She is also following with endocrinology regarding adrenal adenoma. Currently from a symptom perspective she has been doing much better. She has no chest pain. She has no significant shortness of breath after recovering from her pneumonia. Her blood pressure has been in good range most of the times. No significant symptoms. Review of Systems Cardiovascular: Positive for palpitations ( not a lot ). Neurological: Positive for headaches. All other systems reviewed and are negative. Objective Visit Vitals BP 136/76 (BP Location: Right arm, Patient Position: Sitting) Pulse 74 Ht 1.6 m (5' 3 ) Wt 91.6 kg (202 lb) SpO2 97% BMI 35.78 kg/m??? OB Status Postmenopausal Smoking Status Former BSA 2.02 m??? Physical Exam Constitutional: Appearance: She is [...] place, and time. Psychiatric: Mood and Affect: M (more content not included)... [facility] 07-20-2024 Note Attestation signed by Richa Viramontes [...] Age: 59 y.o. : 1965 Account No.: [id number] Referring physician: Dr. Jarocho Saldaña Chief complaint: RML nodule HPI Aby Madrigal is a 59 y.o. female with hypertension, CAD status post PCI recently in June 2024,, cigarette smoking who is presenting to clinic via telemedicine as a new patient after being referred by Dr. Jarocho Saldaña. Patient reports recent admission to [facility] for hypertensive emergency. This prompted a CT of the chest which was positive for right middle lobe nodule. She then underwent PCI here at [facility] in June. She is currently [...] PFTs on file. CTA chest 04/21/[address] [facility]: Right middle lobe approximately 1 cm spiculated nodule appreciated Subsequent PET CT [address] [facility]: Right middle lobe nodule is faintly [...] alcohol. She reports (more content not included)... [facility] 07-18-2024 Note REASON FOR VISIT + H [...] metoprolol - CT A/P Jun 2019 in [place], [place] performed for abd pain, incidentally detected [...] History: Diagnosis Date Abnormal ECG Diabetes mellitus ([facility]) Hyperlipidemia Hypertension Obstructive sleep apnea Panic attacks Stroke ([facility]) Past Surgical History: Procedure [...] Rfl: carvedilol (C (more content not included)... 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 Resides at home alone. Discharge plan is home. [facility] 07-18-2024 Note Patient sent to ED f or hypotension and dizziness/lightheadedness [facility] 07-12-2024 Note Hospital Medicine Discharge Summary Final Discharge Diagnosis: NSTEMI Admission Diagnosis: Hypokalemia [E87.6] NSTEMI (non-ST elevated myocardial infarction) (CMS/HCC) [I21.4] Hypertensive urgency [I16.0] Adenoma of left adrenal gland [D35.02] Resistant hypertension [I1A.0] Atherosclerosis of [place] coronary artery of [place] heart without angina pectoris [I25.10] Coronary artery disease involving [place] coronary artery of [place] heart with unstable angina pectoris (CMS/HCC) [I25.110] Type 2 diabetes mellitus without complication, without long-term current use of insulin ([facility]/H[facility]) [E11.9] Hospital course: 59yoF with CAD s/p LAD SARKIS 11 days ago who was admitted to [facility] on 07/11 for chest pain. patient initially presented to [facility] for uncomfortable feeling in her chest and was found to have elevated troponins and new ischemic changes on EKG. Infusion and cardiology was consulted transferred to [facility] for further evaluation. Initially the patient had blood pressures up to 192/65 for which home medications were restarted. Troponins at [facility] were negative and there were no EKG changes concerning for ischemia. Echo was performed which showed EF 70 to 75%. she was cleared from cardiology for discharge and had resolved. Surgical, Invasive or Diagnostic Procedures Done During Admission: None Consultations During Admission: Cardiology Dear Dr. Lidia MD, [facility] is advised to follow up with [...] 07/18/2024 8:20 AM Feng Christie MD [facility] ENDOCR [facility] 07/20/2024 1:00 PM Richa Viramontes MD [facility] ONC [facility] 09/05/2024 1:00 PM Bijan Licea MD [facility] Your medication list START taking [...] Your Medications These medications were sent to [facility]/pharmacy #[id number] [place] [address] isosorbide mononitrate ER 60 mg 24 hr [...] activity In process (more content not included)... [facility] 07-11-2024 Note 07/11/24 1817 Financial Resource Strain [...] place to sleep or slept in a nursing home (including now)? N Transportation Needs In the [...] than 3 How often do you attend buddhism or religion services? Never Do you belong to any clubs or organizations such as buddhism groups, unions, fraternal or athletic groups, or [...] In the past 12 months has the [employer], oil, or water [employer] threatened to shut off services in your home? 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 Source tie worker Referral Reason Psychosocial assessment Patient Information Primary Caregiver Self Accompanied by/Relationship Daughter (Rosita); Nkmhzkxl-mx-wff (Yesy) Activities of Daily Living Assistive Device Not applicable Living Arrangement (Current/Prior to Hospitalization) Private residence (Lives at home by herself) Ambulation Independent Dressing Independent Feeding Independent Behavior Oriented (A&Ox4) Communication Can write;Talks;Understands speaking;Understands Cymraes;Reads Income Information Income Source Unemployed (receives survivor benefits) Discharge Planning Support Systems Children;Family members (daughter, lgkqyegu-hf-vee, son) Type of Residence Private residence Will patient need Precert for Post Acute needs? No Patient's goal for discharge Home Does the patient need discharge transport arranged? No Completed social work assessment and SDoH screening. Patient was A&Ox4 at this time. Patient's daughter, Rosita, and patient's frhbtiwc-rq-wye, Yesy, were currently present at bedside. Patient reported that she lives at home by herself and she identified her support system as her daughter, Rosita, her mqconqpp-ek-dul, Yesy, and her son, Elie. Patient endorsed [...] any alcohol consumption or recreational drug use. [facility] 07-11-2024 Note Hospital Medicine History and Physical 07/11/2024 12:19 PM THE HOSPITALIST TEAM PREFERS TO USE [employer] FOR COMMUNICATION 7AM-7PM. IF I DO NOT RESPOND WITHIN 15 MINUTES, PLEASE PAGE ME/CALL THROUGH THE BOW TACKER. FROM 7PM-7AM, PLEASE PAGE [phone](COVR) Chief Complaint Chief Complaint Patient presents with [...] s/p stent placement 11 days ago at [facility] presented to ER as a transfer from [facility] for NSTEMI. Patient states that last night [...] Noted Hypokalemia 07/11/2024 Coronary artery disease involving [place] coronary artery of [place] heart with unstable angina pectoris ([facility]) 07/11/2024 Anxiety 06/30/2024 Type 2 diabetes mellitus without complication, without long-term current use of insulin ([facility]) 06/30/2024 Chest pain 06/30/2024 Elevated troponin 06/30/2024 Hypertensive urgency 06/30/2024 Hypomagnesemia 06/30/2024 QURESHI (dyspnea on exertion) 05/26/2024 Atherosclerosis of [place] coronary artery of [place] heart without angina pectoris 05/26/2024 Hyperlipidemia 05/26/2024 Murmur, heart 05/26/2024 Sepsis ([facility]) 07/14/2019 BV (bacterial vaginosis) 10/18/2017 GERD (gastroesophageal reflux disease) 10/18/2017 Essential hypertension 10/18/2017 TIA (transient ischemic attack) 10/18/2017 NSTEMI (non-ST elevated myocardial infarction) ([facility]) 06/29/2024 Assessment and Plan [...] for GI prophylaxis (more content not included)... [facility] 07-10-2024 Note [facility] Note Reason for cardiology [...] Take 1 tablet (more content not included)... [facility] 07-01-2024 Note Hospital Medicine Discharge Summary Final [...] hypertension, IBS presents a direct mission from [facility] with a chief complaint of chest pain. [...] seen on her EKG. She went to [facility] for the symptoms. Labs were completed showing [...] on a heparin drip and transferred to [facility] for likely cardiac cath. # [...] - Continue metformin. Dear Dr. Lidia MD, [facility] is advised to follow up with you within 1-2 weeks. Items to follow up in ambulatory setting: None Follow-up with: Cardiology and Nephrology Scheduled appointments: Future Appointments Date Time Provider Department Center 07/10/2024 2:20 PM Bijan Licea MD [facility] Your medication list [...] Your Medications These medications were sent to [facility]/pharmacy #[id number] [place], [place] - [address] [address] carvedilol 25 mg tablet cloNIDine 0.1 mg tablet clopidogrel 75 mg tablet rosuvastatin 40 mg tablet Aby is allergic to lisinopril, norvasc [amlodipine], and xanax [alprazolam]. Disposition: Home or Self Care () Discharge Condition: Stable Code Status: Full Code Diagnostic Results Hematology: Results from last 7 days Lab Units 07/01/2462606/30/24 0706/29/24 2344 WBC AUTO 10*3/uL 7.04 7.41 8.58 HEMOGLOBIN g/dL 12.4 11.5* 11.8* HEMATOCRIT % 38.6 36.7 35.9* MCV fL 83.7 85.7 82.7 PLATELETS AUTO 10*3/uL 238 243 233 INR -- -- 0.99 Chemistry: Results from last 7 days Lab Units 07/01/24 0606/30/24 0706/29/24 2344 SODIUM mmol/L 141 143 142 POTASSIUM mmol/L 3.5 3.7 3.7 CHLORIDE mmol/L 106 110* 112* CO2 mmol/L 25 26 22 BUN mg/dL 13 10 11 CREATININE mg/dL 0.91 0.81 0.92 GLUCOSE mg/dL 101* 110* 108* MAGNESIUM mg/dL 2.0 -- 1.7* CALCIUM mg/dL 8.2* 8.3* 8.5* PHOSPHORUS mg/dL -- -- 2.9 Results from last 7 days Lab Units (more content not included)... [facility] 07-01-2024 Note [facility] CARDIOLOGY INPAT IENT PROGRESS NOTE Reason for follow up: NSTEMI Subjective Aby S Strausbaugh, a 59 y.o. female patient, is transferred from [facility] for continuity of care. Patient reports that 3 days ago, she woke up in the mid of the night with indigestion, and a feeling fullness, but no pressure like chest pain. She presented to [facility], where she was found to [...] 0.56 06/29/2024 E (more content not included)... [facility] 06-30-2024 Note Patient: Aby antony Procedure Information Date/Time: 06/30/24 1600 Procedure: Coronary angiography (Bilateral) Location: [facility] RECORD KEEPER 3 / [facility] VASCULAR LAB (Cath) Providers: Brunilda Cuellar [...] Plan discussed with attending. Additional Equipment Requests [facility] 06-30-2024 Note 06/30/24 1446 Referral Data Referral Source tie worker Referral Reason Follow up;Information Patient Information Primary Caregiver Self Accompanied by/Relationship daughters at bedside Activities of Daily Living Assistive Device Not applicable Living Arrangement (Current/Prior to Hospitalization) Private residence (three to four stairs) Ambulation Independent Dressing Independent Feeding Independent Behavior Oriented Communication Talks;Understands speaking;Understands Cymraes Discharge Planning Support Systems Children (daughters will [...] questions for social work at this time. [facility] 06-30-2024 Note 06/30/24 1431 Admission Assessment Questions [...] Not Interested Does the patient have a rn case manager assigned to them through their [...] No Do you understand the benefits of [employer]? Yes Were you able to send link and activate [employer]? No [facility] 06-30-2024 Note Case was discussed w ith the SALVADOR on 06/29/2024. I agree with the history, physical, assessment, and plan of care. I discussed the findings and therapeutic plan. I agree with the documentation, except for any updates below. Maurice Nogueira MD [facility] 06-30-2024 Note Hospital Medicine History and Physical 06/30/2024 1:15 AM THE HOSPITALIST TEAM PREFERS TO USE [employer] FOR COMMUNICATION 7AM-7PM. IF I DO NOT RESPOND WITHIN 15 MINUTES, PLEASE PAGE ME/CALL THROUGH THE BOW TACKER. FROM 7PM-7AM, PLEASE PAGE [phone](COVR) Chief Complaint Direct admission from [facility] with CP History of Present Illness Aby Madrigal is an 59 y.o. female who came from home with past medical history of anxiety, DM2, hypertension, IBS presents a direct mission from [facility] with a chief complaint of chest pain. [...] seen on her EKG. She went to [facility] for the symptoms. Labs were completed showing [...] on a heparin drip and transferred to [facility] for likely cardiac cath. Review [...] complication, without long-term current use of insulin ([facility]) 06/30/2024 Chest pain 06/30/2024 Elevated troponin 06/30/2024 Hypertensive urgency 06/30/2024 QURESHI (dyspnea on exertion) 05/26/2024 Atherosclerosis of [place] coronary artery of [place] heart without angina pectoris 05/26/2024 Hyperlipidemia 05/26/2024 Murmur, heart 05/26/2024 Sepsis ([facility]) 07/14/2019 BV (bacterial vaginosis) 10/18/2017 GERD (gastroesophageal reflux disease) 10/18/2017 Essential hypertension 10/18/2017 TIA (transient ischemic attack) 10/18/2017 Assessment and Plan Aby Madrigal is an 59 y.o. female who came from home with past medical history of anxiety, DM2, hypertension, IBS presents a direct mission from [facility] with a chief complaint of chest pain. #Chest pain #Elevated troponin Troponin 0.1, will continue to trend -Patient continues to have mild chest discomfort upon arrival -Continue heparin drip -CXR negative for acute process at OSH -EKG showing normal sinus rhythm -N.p.o. for possible right and left cardiac cath in a.m. -Patient with new diastolic dysfunction on echoc (more content not included)... [facility] 06-21-2024 Note IN Cardiology - [facility] Subjective Aby Madrigal is a 59 y.o. year old female patient being seen for follow up [facility] ED per Dr. Moran. She has [...] attack) QURESHI (dyspnea on exertion) Atherosclerosis of [place] coronary artery of [place] heart without angina pectoris Hyperlipidemia Murmur, heart [...] Judgment: Judgment no (more content not included)... [facility] 05-26-2024 Note [facility] Note [...] PSYCH: appropriate mood, (more content not included)... [facility] 11-25-2022 Note OPERATIVE NOTE OPERATION DATE: 11/25/2022 [...] 10 years. CC: Kendra Moran M.D. [facility] 10-11-2022 Note Chief Complaint consultation for colonoscopy [...] 1 tab(s), Oral, (more content not included)... [facility] Comment on above: Result Comment: Elec tronically Signed By: DIPESH BUCKNER, Umm Hogan\Date and Time Signed: 10/11/22 11:01 EST Evaluation + Plan note No data available for this section [facility] Discharge instructions No data available for this section [facility] note No data available for this section [facility] Summary Purpose Family History No Family History Records FoundNo Family History Records FoundNo Family History Records FoundNo Family History Records Found Advance Directives No Advanced Directives Records FoundNo Advanced Directives Records FoundNo Advanced Directives Records FoundNo Advanced Directives Records Found Additional Source Comments INFORMATION SOURCE (unrecogn ized section and content) DATE CREATED AUTHOR 12/17/2021 [facility] DATE CREATED AUTHOR AUTHOR'S ORGANIZ ATION 12/16/2022 [facility] DATE CREATED AUTHOR AUTHOR'S ORGANIZ ATION 03/26/[address] [facility] DATE CREATED AUTHOR AUTHOR'S ORGANIZ ATION 09/05/2024 [facility] Patient Care team informatio n (unrecognized section and content) Personnel Name: Kendra Moran MD Address: Address: [address] [place] [address] Personnel Name: Kendra Moran MD Address: Address: [address] [place] [address] FOR RECORDS PERTAINING TO PATIENTS WHO ARE [...] BE BASED ON THE PRIMARY CLINICAL RECORDS. [email or web address] provides no warranty or guarantee of the accuracy or completeness of information in this document.
[2024-09-15 22:08] VITALS: BP 180/74; PULSE 77; TEMP 36.4; O2SAT 96; BMI 39.5
--- NOTE | 2024-09-15 22:29 | ED_ITS ---
HPI HPI - General Adult General Chief complaint: Recheck/Abnormal Lab/Rx Stated complaint: HIGH BP Time Seen by Provider: 09/15/24 22:26 Source: patient Mode of arrival: walk-in Limitations: no limitations History of Present Illness HPI narrative: presents complaining of HTN. states it has been elevated for the past couple of days. No dizziness, chest pain or nausea. Mild headache. Does have CAD and stent placement. Related Data Home Medications ?Medication ?Instructions ?Recorded ?Confirmed metformin 500 mg tablet 500 mg PO BID 04/21/24 09/15/24 aspirin 81 mg capsule 81 mg PO DAILY 04/22/24 09/15/24 clopidogrel 75 mg tablet 75 mg PO DAILY 07/01/24 09/15/24 pantoprazole 40 mg tablet,delayed 40 mg PO .ACB 07/20/24 09/15/24 release (Protonix) sennosides 8.6 mg-docusate sodium 1 tab-cap PO DAILY PRN constipation 07/20/24 07/28/24 50 mg tablet (Colace 2-In-1) losartan 100 mg tablet 100 mg PO DAILY 07/24/24 07/28/24 quetiapine 100 mg tablet (Seroquel) 100 mg PO .QHS 07/24/24 09/15/24 rosuvastatin 40 mg tablet 40 mg PO DAILY 07/24/24 09/15/24 isosorbide mononitrate 60 mg 60 mg PO DAILY 07/31/24 09/15/24 tablet,extended release 24 hr lorazepam 1 mg tablet (Ativan) 1 mg PO Q6H PRN anxiety 07/31/24 09/15/24 hydralazine 50 mg tablet 50 mg PO TID PRN hypertension 09/15/24 09/15/24 Previous Rx's ?Medication ?Instructions ?Recorded canagliflozin 100 mg tablet 100 mg PO QD #30 tabs 07/27/24 (Invokana) carvedilol 25 mg tablet 25 mg PO TID #90 tabs 07/27/24 hydrochlorothiazide 25 mg tablet 25 mg PO QD #30 tabs 07/27/24 benzonatate 100 mg capsule 100 mg PO TID PRN cough #20 caps 08/17/24 doxycycline hyclate 100 mg capsule 100 mg PO BID 10 days #20 caps 08/17/24 Allergies Allergy/AdvReac Type Severity Reaction Status Date / Time amlodipine Allergy Mild Headache Verified 09/15/24 22:13 alprazolam (From Xanax) AdvReac Severe Watery Eye Verified 09/15/24 22:13 Opioid HPI Opioid Management Most Recent Opioid Data: Last Pain Scale 3 07/31/24 19:05 07/31/24 Last ORT Total Score 1 07/31/24 20:05 07/31/24 Last ORT Risk Category Low Risk 07/31/24 20:05 07/31/24 Review of Systems ROS Status of ROS 10 or more systems reviewed and unremark able except as noted in history and below [facility] Medical History (Updated 09/15/24 @ 23:43 by Roberto Romeo MD) Chest pain ?R07.9 - Chest pain, unspecified (ICD-10) CAD (coronary artery disease) ?I25.10 - Atherosclerotic heart disease of lime coronary artery without angina pectoris (ICD-10) Hypertensive urgency ?I16.0 - Hypertensive urgency (ICD-10) HTN (hypertension) ?I10 - Essential (primary) hypertension (ICD-10) Hypertensive urgency ?I16.0 - Hypertensive urgency (ICD-10) Chest pain ?R07.9 - Chest pain, unspecified (ICD-10) Anxiety ?F41.9 - Anxiety disorder, unspecified (ICD-10) HTN (hypertension) ?I10 - Essential (primary) hypertension (ICD-10) Hypokalemia ?E87.6 - Hypokalemia (ICD-10) Hypertension, uncontrolled ?I10 - Essential (primary) hypertension (ICD-10) Chest pain ?R07.9 - Chest pain, unspecified (ICD-10) NSTEMI (non-ST elevated myocardial infarction) ?I21.4 - Non-ST elevation (NSTEMI) myocardial infarction (ICD-10) Shortness of breath ?R06.02 - Shortness of breath (ICD-10) Headache ?R51.9 - Headache, unspecified (ICD-10) Elevated d-dimer ?R79.89 - Other specified abnormal findings of blood chemistry (ICD-10) Hypertensive emergency ?I16.1 - Hypertensive emergency (ICD-10) Uncontrolled hypertension ?I10 - Essential (primary) hypertension (ICD-10) Irritable bowel syndrome ?K58.9 - Irritable bowel syndrome without diarrhea (ICD-10) H/O nephrolithotomy with removal of calculi ?Z98.890 - Other specified postprocedural states (ICD-10) ?Z87.442 - Personal history of urinary calculi (ICD-10) Kidney stone ?N20.0 - Calculus of kidney (ICD-10) Sepsis ?A41.9 - Sepsis, unspecified organism (ICD-10) H/O angiography ?Z92.89 - Personal history of other medical treatment (ICD-10) Lung nodule ?R91.1 - Solitary pulmonary nodule (ICD-10) Anxiety ?F41.9 - Anxiety disorder, unspecified (ICD-10) HTN (hypertension) ?I10 - Essential (primary) hypertension (ICD-10) Diabetes ?E11.9 - Type 2 diabetes mellitus without complications (ICD-10) TIA (transient ischemic attack) ?G45.9 - Transient cerebral ischemic attack, unspecified (ICD-10) Surgical History H/O heart artery stent ?Z95.5 - Presence of coronary angioplasty implant and graft (ICD-10) History of appendectomy ?Z90.49 - Acquired absence of other specified parts of digestive tract (ICD- 10) H/O tubal ligation ?Z98.51 - Tubal ligation status (ICD-10) History of cholecystectomy ?Z90.49 - Acquired absence of other specified parts of digestive tract (ICD- 10) Family History (Updated 04/22/24 @ 01:15 by Stalin Kevin) Mother Family history of cancer Father MVA (motor vehicle accident) Brother Family history of stroke Social History (Updated 04/22/24 @ 01:26 by Stalin Kevin) Within the past year, how often did you have a drink containing alcohol: never Within the past year, how often did you have six or more drinks on one occasion: never Score interpretation: A score less than 3 is consistent with normal alcohol consumption. Smoking status: Former smoker Second hand tobacco smoke exposure: No Non-prescribed substance use: denies use Previous occupational history: no Known occupational exposures/hazards: No Highest level of school completed/degree received: high school graduate Do you want help with school or training: No Are you now , , , , never or living with a partner: In a typical week, how many times do you talk on the telephone with family, friends, or neighbors: 3 or more times per week How often do you get together with friends or relatives: 3 or more times per week How often do you attend latter day or mu-ism services: never Do you belong to any clubs or organizations such as latter day groups unions, fraternal or athletic groups, or school groups: no Total score: 1 Score interpretation: A score of less than or equal to 1 indicates the most socially isolated. Little interest or pleasure in doing things: not at all Feeling down, depressed, or hopeless: not at all Feel stressed/tense/nervous/anxious/difficulty sleeping: not at all Do you think of yourself as: straight/heterosexual Gender Identity: female Exam Constitutional Vital Signs, click to edit/add: Last Vital Signs Temp 97.5 F L 09/15/24 22:08 Pulse 78 09/15/24 23:30 Resp 16 09/15/24 23:30 BP 138/64 09/15/24 23:30 Pulse Ox 94 L 09/15/24 23:30 O2 Del Method Room Air 09/15/24 23:30 Common normals: no apparent distress, average body habitus, oriented x3, no limitations, healthy appearing, alert and well nourished [facility] Common normals: normocephalic and head/scalp atraumatic Eye Common normals: PERRL and EOMs intact bilaterally Respiratory Common normals: normal respiratory effort, no retractions, no use of accessory muscles and clear to auscultation bilaterally Cardio Common normals: regular rate, regular rhythm, S1 normal heart sound and S2 normal heart sound Extremity Common normals: normal to inspection and full ROM Neuro Common normals: oriented x3, CN's II-XII intact bilaterally, moves all extremities and no focal motor deficits Psych Appearance: grossly normal Course Vital Signs Vital signs: Vital Signs Temperature 97.5 F L 09/15/24 22:08 Pulse Rate 77 09/15/24 22:08 Respiratory Rate 16 09/15/24 22:08 Blood Pressure 180/74 H 09/15/24 22:08 Pulse Oximetry 96 09/15/24 22:08 Oxygen Delivery Method Room Air 09/15/24 22:08 Temperature 97.5 F L 09/15/24 22:08 Pulse Rate 78 09/15/24 23:30 Respiratory Rate 16 09/15/24 23:30 Blood Pressure 138/64 09/15/24 23:30 Pulse Oximetry 94 L 09/15/24 23:30 Oxygen Delivery Method Room Air 09/15/24 23:30 Medical Decision Making MDM Narrative Medical decision making narrative: patient presents with hypertensive urgency. labs neg. BP improved nicely after one dose of Catapres. Patient discharged and advised to follow up with her family doctor and to continue her regular BP medications starting this upcoming AM Lab Data Labs: Lab Results 09/15/24 Range/Units 22:47 WBC 6.9 (4.0-11.0) 10^3/uL RBC 4.35 (4.20-5.40) 10^6/uL Hgb 11.7 L (12.0-16.0) g/dL Hct 36.9 (36.0-48.0) % MCV 84.8 (81.0-99.0) fL MCH 26.9 (26.7-34.0) pg MCHC 31.7 (29.9-35.2) g/dL RDW 15.1 H (11.0-15.0) % Plt Count 233 (150-450) 10^3/uL MPV 10.0 (9.5-13.5) fL Neut % (Auto) 62.4 (43.0-75.0) % Lymph % (Auto) 23.5 (20.5-60.0) % [place] % (Auto) 6.9 (1.7-12.0) % Eos % (Auto) 6.2 (0.9-7.0) % Baso % (Auto) 0.7 (0.2-2.0) % Neut # (Auto) 4.3 (1.4-6.5) 10^3/uL Lymph # (Auto) 1.6 (1.2-3.8) 10^3/uL [place] # (Auto) 0.5 (0.3-0.8) 10^3/uL Eos # (Auto) 0.4 (0.0-0.7) 10^3/uL Baso # (Auto) 0.1 (0.0-0.1) 10^3/uL Abs Immat Gran (auto) 0.02 (0.00-0.03) 10^3/uL Imm/Tot Granulo (auto) 0.3 (0.0-0.5) % Sodium 144 (136-145) mmol/L Potassium 3.0 L (3.5-5.1) mmol/L Chloride 109 H (98-107) mmol/L Carbon Dioxide 26.0 (21.0-32.0) mmol/L Anion Gap 12.0 BUN 14.0 (7.0-18.0) mg/dL Creatinine 1.20 H (0.55-1.02) mg/dL Est GFR ( Amer) 55 L (>=60 mL/min/1.73m^2) Est GFR (Non-Af Amer) 46 L (>=60 mL/min/1.73m^2) BUN/Creatinine Ratio 11.7 Glucose 155 H (74-106) mg/dL Calcium 9.4 (8.5-10.1) mg/dL Troponin I High Sens 9.2 (4.0-51.3) pg/mL Discharge Plan Discharge Chief Complaint: Recheck/Abnormal Lab/Rx Clinical Impression: Hypertension Patient Disposition: Home, Self-Care Prescriptions / Home Meds: No Action metformin 500 mg tablet 500 mg PO BID aspirin 81 mg capsule 81 mg PO DAILY sennosides-docusate sodium [Colace 2-In-1] 8.6-50 mg tablet 1 tab-cap PO DAILY PRN (Reason: constipation) pantoprazole [Protonix] 40 mg tablet,delayed release (DR/EC) 40 mg PO .ACB losartan 100 mg tablet 100 mg PO DAILY rosuvastatin 40 mg tablet 40 mg PO DAILY quetiapine [Seroquel] 100 mg tablet 100 mg PO .QHS Rx Instructions: AT HS carvedilol 25 mg Tablet 25 mg PO TID Qty: 90 11RF hydrochlorothiazide 25 mg Tablet 25 mg PO QD Qty: 30 11RF Invokana 100 mg Tablet 100 mg PO QD Qty: 30 11RF isosorbide mononitrate 60 mg Tablet Extended Release 24 Hr 60 mg PO DAILY lorazepam [Ativan] 1 mg tablet 1 mg PO Q6H PRN (Reason: anxiety) Rx Instructions: 0.5 MG 1-2 TABS benzonatate 100 mg capsule 100 mg PO TID PRN (Reason: cough) Qty: 20 0RF doxycycline hyclate 100 mg capsule 100 mg PO BID 10 Days Qty: 20 0RF hydralazine 50 mg tablet 50 mg PO TID PRN (Reason: hypertension) Rx Instructions: States takes it if syst>150 clopidogrel 75 mg tablet 75 mg PO DAILY Print Language: Azeri Instructions: Hypertension (ED) Additional Instructions: continue your regular BP medications starting in the AM Referrals: Carlito Murillo MD [Primary Care Provider] - 1 week
[2024-09-15] MEDS: CLONIDINE HCL 0.1 MG TABLET PO (22:49)
[2024-09-15 22:54] LABS: Basophils Absolute Auto 0.1 10^3/uL (0.0-0.1); Basophils Percent Auto 0.7 % (0.2-2.0); Eosinophils Absolute Auto 0.4 10^3/uL (0.0-0.7); Eosinophils Percent Auto 6.2 % (0.9-7.0); Hematocrit 36.9 % (36.0-48.0); Hemoglobin 11.7 g/dL (12.0-16.0); Immature Granulocytes Abs Auto 0.02 10^3/uL (0.00-0.03); Immature Granulocytes Pct Auto 0.3 % (0.0-0.5); Lymphocytes Absolute Auto 1.6 10^3/uL (1.2-3.8); Lymphocytes Percent Auto 23.5 % (20.5-60.0); Mean Corpuscular HGB Conc 31.7 g/dL (29.9-35.2); Mean Corpuscular Hemoglobin 26.9 pg (26.7-34.0); Mean Corpuscular Volume 84.8 fL (81.0-99.0); Monocytes Absolute Auto 0.5 10^3/uL (0.3-0.8); Monocytes Percent Auto 6.9 % (1.7-12.0); Neutrophils Absolute Auto 4.3 10^3/uL (1.4-6.5); Neutrophils Percent Auto 62.4 % (43.0-75.0); Platelet Count 233 10^3/uL (150-450); Red Blood Count 4.35 10^6/uL (4.20-5.40); Red Cell Distribution Width 15.1 % (11.0-15.0); White Blood Count 6.9 10^3/uL (4.0-11.0)
[2024-09-15 23:12] LABS: BUN Creatinine Ratio 11.7; Calcium 9.4 mg/dL (8.5-10.1); Chloride 109 mmol/L (98-107); Estimated GFR (African America 55 (>=60 mL/min/1.73m^2); Estimated GFR (Non-African Ame 46 (>=60 mL/min/1.73m^2); Glucose 155 mg/dL (74-106); Sodium 144 mmol/L (136-145); Troponin I High Sensitivity 9.2 pg/mL (4.0-51.3)
[2024-09-15 23:30] VITALS: BP 138/64; PULSE 78; O2SAT 94
== END 2024-09-16 00:01 | disposition home or self-care (01) ==
PROVIDERS: Emergency Provider Internal Medicine; PCP Family Medicine
DX: I10 Essential (primary) hypertension (principal); I25.10 Atherosclerotic heart disease of native coronary artery without angina pectoris; Z95.5 Presence of coronary angioplasty implant and graft; Z87.891 Personal history of nicotine dependence
CPT/HCPCS: 36415; 80048; 84484; 85025; 99283

== ENCOUNTER 2024-09-28 12:25 | Emergency (ER) | payer MEDICAID, SELFPAY ==
[2024-09-28] VITALS (8 sets, daily range): BP systolic 98–144; BP diastolic 56–63; PULSE 73–76; TEMP 36.8; O2SAT 93–97; BMI 36.1
--- NOTE | 2024-09-28 12:34 | ECG_ITS ---
The [facility] Test Date: 2024-09-28 Pat Name: MILAN RASMUSSEN Department: Room: - Gender: Female [employer]: : 1965 Requested By: KENDRA MORAN Order Number: [id number] Reading MD: KENDRA MORAN Measurements Intervals Cameron Rate: 72 P: 53 WY: 172 QRS: 22 QRSD: 90 T: 53 QT: 430 QTc: 454 Interpretive Statements 1100 Sinus rhythm 4068 Nonspecific Twave abnormality 8304 Long QTc interval 0102 ARTIFACT PRESENT 9150 abnormal ECG Compared to ECG 07/31/2024 17:07:27 ST (T wave) deviation no longer present Possible ischemia no longer present Electronically Signed On 09-29-2024 6:02:22 EST by KENDRA MORAN
--- NOTE | 2024-09-28 12:34 | XR_ITS ---
The [address] [address] Patient Name: MILAN RASMUSSEN MRN: [id number] date: 1965 Sex: F Assigned Patient Location: ER Current Patient Location: ER Accession/Order Number: [id number] Exam Date: 09/28/2024 12:41 Report Date: 09/28/2024 13:05 At the request of: NICK SKINNER Procedure: XR chest 1V EXAMINATION: XR chest 1V HISTORY: cp COMPARISON: XR chest 08/17/2024 FINDINGS: LUNGS: Trace amount of stranding within lateral left lung base. Right lung is clear. VASCULATURE: No increased pulmonary vasculature. PLEURA: No pneumothorax, effusion, or pleural thickening. CARDIAC: No cardiomegaly or cardiac silhouette abnormality. MEDIASTINUM: No visible mass or adenopathy. BONES: No fracture or visible bone lesion. OTHER: Negative. XR/XR chest 1V IMPRESSION: 1. Mild lingular infiltrates versus atelectasis; new since prior study. Electronically authenticated by: JOSE YOUNG Date: 09/28/2024 13:05
--- NOTE | 2024-09-28 12:36 | CT_ITS ---
The [address] [address] Patient Name: MILAN RASMUSSEN MRN: [id number] date: 1965 Sex: F Assigned Patient Location: ER Current Patient Location: [facility] Accession/Order Number: [id number] Exam Date: 09/28/2024 12:41 Report Date: 09/28/2024 13:42 At the request of: NICK SKINNER Procedure: CT head/brain wo con EXAM: CT head/brain wo con HISTORY: Headache, visual disturbance COMPARISON: CT head 04/22/2024. TECHNIQUE: Axial noncontrast CT imaging of the head was performed with coronal and sagittal reformats This CT exam was performed using one or more of the following dose reduction techniques: Automated exposure control, adjustment of the MA and/or kV according to patient size, or use of iterative reconstruction technique. FINDINGS: Calvarium/skull base: No evidence of acute fracture or destructive lesion. Paranasal sinuses: No air fluid levels. Brain: No acute intracranial hemorrhage. No acute large vascular territory infarct. Stable mild patchy hypoattenuation involving the supratentorial white matter which is relatively symmetric in appearance and most commonly relates to sequela of small vessel disease. No mass lesion or mass effect. No hydrocephalus. CT/CT head/brain wo con IMPRESSION: No acute large vascular territory infarct or acute intracranial hemorrhage. No substantial change in appearance of the brain compared to 04/22/2024. Electronically authenticated by: LORRIE BHAKTA Date: 09/28/2024 13:42
[2024-09-28 13:06] LABS: Basophils Absolute Auto 0.1 10^3/uL (0.0-0.1); Basophils Percent Auto 0.9 % (0.2-2.0); Eosinophils Absolute Auto 0.3 10^3/uL (0.0-0.7); Eosinophils Percent Auto 3.8 % (0.9-7.0); Hematocrit 37.4 % (36.0-48.0); Hemoglobin 11.8 g/dL (12.0-16.0); Immature Granulocytes Abs Auto 0.01 10^3/uL (0.00-0.03); Immature Granulocytes Pct Auto 0.2 % (0.0-0.5); Lymphocytes Absolute Auto 1.5 10^3/uL (1.2-3.8); Lymphocytes Percent Auto 22.3 % (20.5-60.0); Mean Corpuscular HGB Conc 31.6 g/dL (29.9-35.2); Mean Corpuscular Hemoglobin 26.9 pg (26.7-34.0); Mean Corpuscular Volume 85.2 fL (81.0-99.0); Mean Platelet Volume 9.7 fL (9.5-13.5); Monocytes Absolute Auto 0.5 10^3/uL (0.3-0.8); Monocytes Percent Auto 7.8 % (1.7-12.0); Neutrophils Absolute Auto 4.3 10^3/uL (1.4-6.5); Platelet Count 235 10^3/uL (150-450); Red Blood Count 4.39 10^6/uL (4.20-5.40); Red Cell Distribution Width 15.3 % (11.0-15.0); White Blood Count 6.6 10^3/uL (4.0-11.0)
[2024-09-28 13:17] LABS: Internal Control Within Normal Limits; SARS-CoV-2 Ag NEGATIVE (NEGATIVE)
[2024-09-28 13:20] LABS: Anion Gap 12.4
[2024-09-28 13:22] LABS: Alanine Aminotransferase 43 U/L (14-59); Albumin Level 3.3 g/dL (3.4-5.0); Alkaline Phosphatase 70 U/L (46-116); Aspartate Amino Transferase 30 U/L (15-37); BUN Creatinine Ratio 10.8; Bilirubin Total 0.4 mg/dL (0.2-1.0); Chloride 109 mmol/L (98-107); Estimated GFR (African America >60 (>=60 mL/min/1.73m^2); Estimated GFR (Non-African Ame 50 (>=60 mL/min/1.73m^2); Globulin 3.3 g/dL; Glucose 105 mg/dL (74-106); Potassium 3.4 mmol/L (3.5-5.1); Sodium 145 mmol/L (136-145); Total Protein 6.6 g/dL (6.4-8.2); Troponin I High Sensitivity 9.7 pg/mL (4.0-51.3)
--- NOTE | 2024-09-28 14:16 | ED_ITS ---
HPI HPI - General Adult General Chief complaint: Dizziness Stated complaint: GENERAL WEAKNESS Time Seen by Provider: 09/28/24 12:26 Source: patient Mode of arrival: ambulance Limitations: no limitations History of Present Illness HPI narrative: Presents to ED complaining of some chest pressure and dizziness. She reports the dizziness is more like lightheadedness. She also reports that she has had a bad cough for the past couple of weeks. She has not been tested for COVID. She had pneumonia about 6 weeks ago and got better from that but she started coming down with something a couple weeks ago. She does have a history of high blood pressure and had some medication changes yesterday but has not started her new medication regimen yet. Patient denies diaphoresis. She has been a little bit short of breath on and off. No leg pain or swelling. She does report headache specifically around the right eye with some visual disturbances. She does have a history of migraines but does not really get the headaches much anymore and typically has the auras without a lot of pain but today she was having pain around the right eye. No fevers. Related Data Home Medications ?Medication ?Instructions ?Recorded ?Confirmed metformin 500 mg tablet 500 mg PO BID 04/21/24 09/28/24 aspirin 81 mg capsule 81 mg PO DAILY 04/22/24 09/28/24 clopidogrel 75 mg tablet 75 mg PO DAILY 07/01/24 09/28/24 pantoprazole 40 mg tablet,delayed 40 mg PO .ACB 07/20/24 09/28/24 release (Protonix) sennosides 8.6 mg-docusate sodium 1 tab-cap PO DAILY PRN constipation 07/20/24 09/28/24 50 mg tablet (Colace 2-In-1) losartan 100 mg tablet 100 mg PO DAILY 07/24/24 09/28/24 quetiapine 100 mg tablet (Seroquel) 100 mg PO .QHS 07/24/24 09/28/24 rosuvastatin 40 mg tablet 40 mg PO DAILY 07/24/24 09/28/24 isosorbide mononitrate 60 mg 60 mg PO BID 07/31/24 09/28/24 tablet,extended release 24 hr lorazepam 1 mg tablet (Ativan) 1 mg PO Q6H PRN anxiety 07/31/24 09/28/24 hydralazine 50 mg tablet 50 mg PO TID PRN hypertension 09/15/24 09/28/24 Previous Rx's ?Medication ?Instructions ?Recorded canagliflozin 100 mg tablet 100 mg PO QD #30 tabs 07/27/24 (Invokana) carvedilol 25 mg tablet 25 mg PO TID #90 tabs 07/27/24 hydrochlorothiazide 25 mg tablet 25 mg PO QD #30 tabs 07/27/24 azithromycin 500 mg tablet 500 mg PO DAILY #3 tabs 09/28/24 (Zithromax TRI-TONY) Allergies Allergy/AdvReac Type Severity Reaction Status Date / Time amlodipine Allergy Mild Headache Verified 09/15/24 22:13 alprazolam (From Xanax) AdvReac Severe Watery Eye Verified 09/15/24 22:13 Opioid HPI Opioid Management Most Recent Opioid Data: Last Pain Scale 3 07/31/24 19:05 07/31/24 Last ORT Total Score 1 07/31/24 20:05 07/31/24 Last ORT Risk Category Low Risk 07/31/24 20:05 07/31/24 Review of Systems ROS Status of ROS 10 or more systems reviewed and unremark able except as noted in history and below [facility] Medical History (Updated 09/28/24 @ 13:56 by Carla Greenwood DO) Chest pain ?R07.9 - Chest pain, unspecified (ICD-10) CAD (coronary artery disease) ?I25.10 - Atherosclerotic heart disease of [place] coronary artery without an shawn pectoris (ICD-10) Hypertensive urgency ?I16.0 - Hypertensive urgency (ICD-10) HTN (hypertension) ?I10 - Essential (primary) hypertension (ICD-10) Hypertensive urgency ?I16.0 - Hypertensive urgency (ICD-10) Chest pain ?R07.9 - Chest pain, unspecified (ICD-10) Anxiety ?F41.9 - Anxiety disorder, unspecified (ICD-10) HTN (hypertension) ?I10 - Essential (primary) hypertension (ICD-10) Hypokalemia ?E87.6 - Hypokalemia (ICD-10) Hypertension, uncontrolled ?I10 - Essential (primary) hypertension (ICD-10) Chest pain ?R07.9 - Chest pain, unspecified (ICD-10) NSTEMI (non-ST elevated myocardial infarction) ?I21.4 - Non-ST elevation (NSTEMI) myocardial infarction (ICD-10) Shortness of breath ?R06.02 - Shortness of breath (ICD-10) Headache ?R51.9 - Headache, unspecified (ICD-10) Elevated d-dimer ?R79.89 - Other specified abnormal findings of blood chemistry (ICD-10) Hypertensive emergency ?I16.1 - Hypertensive emergency (ICD-10) Uncontrolled hypertension ?I10 - Essential (primary) hypertension (ICD-10) Irritable bowel syndrome ?K58.9 - Irritable bowel syndrome without diarrhea (ICD-10) H/O nephrolithotomy with removal of calculi ?Z98.890 - Other specified postprocedural states (ICD-10) ?Z87.442 - Personal history of urinary calculi (ICD-10) Kidney stone ?N20.0 - Calculus of kidney (ICD-10) Sepsis ?A41.9 - Sepsis, unspecified organism (ICD-10) H/O angiography ?Z92.89 - Personal history of other medical treatment (ICD-10) Lung nodule ?R91.1 - Solitary pulmonary nodule (ICD-10) Anxiety ?F41.9 - Anxiety disorder, unspecified (ICD-10) HTN (hypertension) ?I10 - Essential (primary) hypertension (ICD-10) Diabetes ?E11.9 - Type 2 diabetes mellitus without complications (ICD-10) TIA (transient ischemic attack) ?G45.9 - Transient cerebral ischemic attack, unspecified (ICD-10) Surgical History H/O heart artery stent ?Z95.5 - Presence of coronary angioplasty implant and graft (ICD-10) History of appendectomy ?Z90.49 - Acquired absence of other specified parts of digestive tract (ICD- 10) H/O tubal ligation ?Z98.51 - Tubal ligation status (ICD-10) History of cholecystectomy ?Z90.49 - Acquired absence of other specified parts of digestive tract (ICD- 10) Family History (Updated 04/22/24 @ 01:15 by Stalin Kevin) Mother Family history of cancer Father MVA (motor vehicle accident) Brother Family history of stroke Social History (Updated 04/22/24 @ 01:26 by Stalin Kevin) Within the past year, how often did you have a drink containing alcohol: never Within the past year, how often did you have six or more drinks on one occasion: never Score interpretation: A score less than 3 is consistent with normal alcohol consumption. Smoking status: Former smoker Second hand tobacco smoke exposure: No Non-prescribed substance use: denies use Previous occupational history: no Known occupational exposures/hazards: No Highest level of school completed/degree received: high school graduate Do you want help with school or training: No Are you now , , , , never or living with a partner: In a typical week, how many times do you talk on the telephone with family, friends, or neighbors: 3 or more times per week How often do you get together with friends or relatives: 3 or more times per week How often do you attend quaker or uatsdin services: never Do you belong to any clubs or organizations such as quaker groups unions, [employer] or athletic groups, or school groups: no Total score: 1 Score interpretation: A score of less than or equal to 1 indicates the most socially isolated. Little interest or pleasure in doing things: not at all Feeling down, depressed, or hopeless: not at all Feel stressed/tense/nervous/anxious/difficulty sleeping: not at all Do you think of yourself as: straight/heterosexual Gender Identity: female Exam Narrative Exam Narrative: Time Seen: [] Vital Signs: [Per nurse's notes.] General: [Alert] Skin: [Warm, dry, no rash.] Head: [Normocephalic, atraumatic.] Neck: [Supple, trachea midline.] Eye: [Pupils are equal, round and reactive to light, extraocular movements are intact, normal conjunctiva.] Ears, nose, mouth and throat: oral mucosa moist. Cardiovascular: [Regular rate and rhythm, no murmur.] Respiratory: [Lungs are clear to auscultation, respirations are non-labored, breath sounds are equal.] Chest wall: [No tenderness, no deformity.] Gastrointestinal: [Soft, nontender, non distended, normal bowel sounds.] MSK: 5 out of 5 muscle strength x 4 extremities no calf pain or edema Lymphatics: [No lymphadenopathy.] Psychiatric: [Cooperative, appropriate mood & affect.] Neurological: [Alert and oriented to person, place, time, and situation, no focal neurological deficit observed.] Constitutional Vital Signs, click to edit/add: Last Vital Signs Temp 98.2 F 09/28/24 12:26 Pulse 74 09/28/24 14:00 Resp 20 09/28/24 14:00 BP 144/63 H 09/28/24 14:00 Pulse Ox 93 L 09/28/24 14:00 O2 Del Method Room Air 09/28/24 12:26 Course Vital Signs Vital signs: Vital Signs Temperature 98.2 F 09/28/24 12:26 Pulse Rate 75 09/28/24 12:26 Respiratory Rate 18 09/28/24 12:26 Pulse Oximetry 97 09/28/24 12:26 Oxygen Delivery Method Room Air 09/28/24 12:26 Temperature 98.2 F 09/28/24 12:26 Pulse Rate 74 09/28/24 14:00 Respiratory Rate 20 09/28/24 14:00 Blood Pressure 144/63 H 09/28/24 14:00 Pulse Oximetry 93 L 09/28/24 14:00 Oxygen Delivery Method Room Air 09/28/24 12:26 Medical Decision Making MDM Narrative Medical decision making narrative: Patient's labs are negative for acute. Possible pneumonia on the chest x-ray. Patient will be sent home on a Z-Tony for possible pneumonia since she has had a productive cough for the past couple weeks. Cardiac enzymes are negative x 1. EKG nonacute. Patient is to call Dr. Murillo's office and schedule follow-up appointment. Continue her blood pressure medication as discussed yesterday with Dr. Murillo. Patient is comfortable care plan for home. Differential Diagnosis Differential Diagnosis: Pneumonia, NSTEMI, acute VT, atypical chest pain, viral syndrome Medical Records Medical records reviewed: Yes I reviewed the patient's medical records Lab Data Lab results reviewed: Yes I reviewed the patient's lab results Labs: Lab Results 09/28/24 09/28/24 Range/Units 12:50 12:57 WBC 6.6 (4.0-11.0) 10^3/uL RBC 4.39 (4.20-5.40) 10^6/uL Hgb 11.8 L (12.0-16.0) g/dL Hct 37.4 (36.0-48.0) % MCV 85.2 (81.0-99.0) fL MCH 26.9 (26.7-34.0) pg MCHC 31.6 (29.9-35.2) g/dL RDW 15.3 H (11.0-15.0) % Plt Count 235 (150-450) 10^3/uL MPV 9.7 (9.5-13.5) fL Neut % (Auto) 65.0 (43.0-75.0) % Lymph % (Auto) 22.3 (20.5-60.0) % [place] % (Auto) 7.8 (1.7-12.0) % Eos % (Auto) 3.8 (0.9-7.0) % Baso % (Auto) 0.9 (0.2-2.0) % Neut # (Auto) 4.3 (1.4-6.5) 10^3/uL Lymph # (Auto) 1.5 (1.2-3.8) 10^3/uL [place] # (Auto) 0.5 (0.3-0.8) 10^3/uL Eos # (Auto) 0.3 (0.0-0.7) 10^3/uL Baso # (Auto) 0.1 (0.0-0.1) 10^3/uL Abs Immat Gran (auto) 0.01 (0.00-0.03) 10^3/uL Imm/Tot Granulo (auto) 0.2 (0.0-0.5) % Sodium 145 (136-145) mmol/L Potassium 3.4 L (3.5-5.1) mmol/L Chloride 109 H (98-107) mmol/L Carbon Dioxide 27.0 (21.0-32.0) mmol/L Anion Gap 12.4 BUN 12.0 (7.0-18.0) mg/dL Creatinine 1.11 H (0.55-1.02) mg/dL Est GFR ( Amer) >60 (>=60 mL/min/1.73m^2) Est GFR (Non-Af Amer) 50 L (>=60 mL/min/1.73m^2) BUN/Creatinine Ratio 10.8 Glucose 105 (74-106) mg/dL Calcium 9.0 (8.5-10.1) mg/dL Total Bilirubin 0.4 (0.2-1.0) mg/dL AST 30 (15-37) U/L ALT 43 (14-59) U/L Alkaline Phosphatase 70 (46-116) U/L Troponin I High Sens 9.7 (4.0-51.3) pg/mL Total Protein 6.6 (6.4-8.2) g/dL Albumin 3.3 L (3.4-5.0) g/dL Globulin 3.3 g/dL Albumin/Globulin Ratio 1.0 SARS-CoV-2 Ag (CV2AG) Negative (NEGATIVE) Imaging Data Chest x-ray: Radiologist's impression: ITS Impressions Chest X-Ray 09/28/24 12:34 IMPRESSION: 1. Mild lingular infiltrates versus atelectasis; new since prior study. Electronically authenticated by: JOSE YOUNG Date: 09/28/2024 13:[address] 09/28/24 12:36 IMPRESSION: No acute large vascular territory infarct or acute intracranial hemorrhage. No substantial change in appearance of the brain compared to 04/22/2024. Electronically authenticated by: LORRIE BHAKTA Date: 09/28/2024 13:42 ECG Data Attestation: I personally reviewed and interpreted this ECG as follows: Interpretation: EKG INTERPRETATION Time: [] 1229 Rate: [] 72 Rhythm: _ [] Normal sinus rhythm ST segments: _ [] No acute ST elevation or depression T waves: _ [] Ectopy: _ [] P wave/ID interval: _ [] QRS interval: _ [] QT interval: _ [] Comparison: _ [] Comparison EKG date: [] Performed by: [self] Discharge Plan Discharge Chief Complaint: Dizziness Clinical Impression: Pneumonia, Dizziness Patient Disposition: Home, Self-Care Time of Disposition Decision: 13:56 Condition: Good Mode of Transportation: Private Vehicle Prescriptions / Home Meds: New azithromycin [Zithromax TRI-TONY] 500 mg tablet 500 mg PO DAILY Qty: 3 0RF Rx Instructions: 500 mg orally For 250 mg dose pack: take 500 mg today (day 1), then 250 mg for 4 days (days 2-5); No Action metformin 500 mg tablet 500 mg PO BID aspirin 81 mg capsule 81 mg PO DAILY sennosides-docusate sodium [Colace 2-In-1] 8.6-50 mg tablet 1 tab-cap PO DAILY PRN (Reason: constipation) pantoprazole [Protonix] 40 mg tablet,delayed release (DR/EC) 40 mg PO .ACB losartan 100 mg tablet 100 mg PO DAILY rosuvastatin 40 mg tablet 40 mg PO DAILY quetiapine [Seroquel] 100 mg tablet 100 mg PO .QHS Rx Instructions: AT HS carvedilol 25 mg Tablet 25 mg PO TID Qty: 90 11RF hydrochlorothiazide 25 mg Tablet 25 mg PO QD Qty: 30 11RF Invokana 100 mg Tablet 100 mg PO QD Qty: 30 11RF isosorbide mononitrate 60 mg Tablet Extended Release 24 Hr 60 mg PO BID lorazepam [Ativan] 1 mg tablet 1 mg PO Q6H PRN (Reason: anxiety) Rx Instructions: 0.5 MG 1-2 TABS hydralazine 50 mg tablet 50 mg PO TID PRN (Reason: hypertension) Rx Instructions: States takes it if syst>150 clopidogrel 75 mg tablet 75 mg PO DAILY Print Language: Mexican Instructions: Community Acquired Pneumonia (ED) Referrals: Carlito Murillo MD [Primary Care Provider] - 1 week
[2024-09-28 14:46] LABS: Bilirubin Urine NEGATIVE (NEGATIVE); Blood Urine NEGATIVE (NEGATIVE); Clarity Urine CLEAR (CLEAR); Color Urine YELLOW (YELLOW); Glucose Urine UA >=1000 mg/dL (NEGATIVE); Ketones Urine NEGATIVE (NEGATIVE); Leukocyte Esterase Urine NEGATIVE (NEGATIVE); Nitrite Urine NEGATIVE (NEGATIVE); Protein Urine NEGATIVE (NEG/TRACE); Urobilinogen Urine 0.2 EU/dL (0.2-1.0)
[2024-09-28 14:48] LABS: Urine Microscopic Indicated NO
== END 2024-09-28 14:26 | disposition home or self-care (01) ==
PROVIDERS: Emergency Provider Emergency Medicine; PCP Family Medicine
DX: J18.9 Pneumonia, unspecified organism (principal); R42 Dizziness and giddiness; Z87.891 Personal history of nicotine dependence; Z20.822 Contact with and (suspected) exposure to COVID-19
CPT/HCPCS: 36415; 70450; 71045; 80053; 81003; 84484; 85025; 87811; 93005; 99285

== ENCOUNTER 2024-10-15 16:52 | Emergency (ER) | payer MEDICAID, SELFPAY ==
[2024-10-15] VITALS (9 sets, daily range): BP systolic 141–159; BP diastolic 65–88; PULSE 68–81; TEMP 36.8; O2SAT 94–97; BMI 35.4
--- NOTE | 2024-10-15 16:58 | ECG_ITS ---
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
--- NOTE | 2024-10-15 16:58 | XR_ITS ---
The [address] [address] Patient Name: MILAN RASMUSSEN MRN: [id number] date: 1965 Sex: F Assigned Patient Location: ER Current Patient Location: Accession/Order Number: [id number] Exam Date: 10/15/2024 17:15 Report Date: 10/15/2024 18:52 At the request of: DAVID RUTH Procedure: XR chest 2V EXAM: XR chest 2V HISTORY: palpitations COMPARISON: 09/28/2024 TECHNIQUE: Chest X-ray, 2 views FINDINGS: Support devices: None. Lungs/pleura: No consolidation, effusion, or pneumothorax. Heart and mediastinum: Normal contours. Bones: No acute abnormality identified. XR/XR chest 2V Impression: No radiographic evidence of acute cardiopulmonary process. Electronically authenticated by: JANKI STERN Date: 10/15/2024 18:52
[2024-10-15 17:03] LABS: Basophils Absolute Auto 0.1 10^3/uL (0.0-0.1); Eosinophils Absolute Auto 0.3 10^3/uL (0.0-0.7); Eosinophils Percent Auto 3.7 % (0.9-7.0); Hematocrit 38.6 % (36.0-48.0); Hemoglobin 12.1 g/dL (12.0-16.0); Immature Granulocytes Abs Auto 0.01 10^3/uL (0.00-0.03); Immature Granulocytes Pct Auto 0.1 % (0.0-0.5); Lymphocytes Absolute Auto 2.1 10^3/uL (1.2-3.8); Lymphocytes Percent Auto 30.7 % (20.5-60.0); Mean Corpuscular HGB Conc 31.3 g/dL (29.9-35.2); Mean Corpuscular Hemoglobin 26.5 pg (26.7-34.0); Mean Corpuscular Volume 84.5 fL (81.0-99.0); Mean Platelet Volume 10.3 fL (9.5-13.5); Monocytes Absolute Auto 0.5 10^3/uL (0.3-0.8); Neutrophils Absolute Auto 3.9 10^3/uL (1.4-6.5); Neutrophils Percent Auto 57.5 % (43.0-75.0); Platelet Count 247 10^3/uL (150-450); Red Blood Count 4.57 10^6/uL (4.20-5.40); Red Cell Distribution Width 15.2 % (11.0-15.0); White Blood Count 6.7 10^3/uL (4.0-11.0)
--- OUTSIDE RECORDS SUMMARY | 2024-10-15 17:05 | XMS_ITS | CCD ---
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 Architect Name Role Phone Kendra Moran Primary Care Physician Umm LANDON Attending Unavailable NILL, Umm Michael [...] HOY ., DR GARDNER Primary Care Unavailable [place], DR ADELIA Medrano Consulting Unavailable KENDRA MORAN Referring Unavailable HORANI, NONA Attending Unavailable HORANI, NONA Admitting Unavailable HORANI, NONA Referring Unavailable HERMINIA JULIAN Referring Unavailable FELECIA CORDOBA Referring Unavailable FENG CHRISTIE Attending Unavailable TAO NASSAR Attending Unavailable HORANI, NONA Admitting Unavailable JOSE BETANCUR Referring Unavailable HERMINIA JULIAN Attending Unavailable FEDERICA ANDERSON Referring Unavailable BIJAN LICEA Attending Unavailable NONA FUCHS Referring Unavailable BIJAN LICEA Attending Unavailable FENG CHRISTIE Attending Unavailable RICHA VIRAMONTES Referring Unavailable FENG CHRISTIE Referring Unavailable GOMEZ SPENCE Attending Unavailable RICHA VIRAMONTES Attending Unavailable GOMEZ SPENCE Attending Unavailable FENG CHRISTIE Attending Unavailable BUBBA, MESERET Referring Unavailable HORANI, NONA Referring Unavailable TOFLINSKI, FEDERICA Referring Unavailable HORANI, NONA Referring Unavailable Allergies Allergy Classification Reported Allergen(s) Allergy Type Date of Onset Reaction(s) Facility (1 source) No Known Medication Allergies; 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: [No Known Medication Allergies] Propensity to adverse reactions (disorder) [facility] Repository (1 source) ALPRAZolam; 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: [ALPRAZOLAM] Drug Allergy [address] [place] [address] Repository (1 source) amLODIPine; 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: [AMLODIPINE] Drug Allergy [address] [place] [address] Repository (1 source) Lisinopril; 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: [LISINOPRIL] Drug Allergy [address] [place] [address] Repository Medications Current Medications Medication Drug Class(es) [...] 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: [Non-ST elevation (NSTEMI) myocardial infarction] Onset: 07-11-2024 Chronic Anxiety disorders (7 sources) Anxiety; 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: [Panic disorder] Onset: 09-28-2022 08-02-2019 Chronic Complication of device; implant or graft (2 sources) Retained ureteric stent 08-29-2019 Episodic Complications of surgical procedures or medical care (2 sources) Unspecified adverse effect of drug or medicament, initial encounter; 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: [Unspecified adverse effect of drug or medicament, initial encounter] Onset: 07-18-2024 Episodic Coronary atherosclerosis and other heart disease (7 sources) Coronary arteriosclerosis; 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: [Atherosclerotic heart disease of [place] coronary artery without angina pectoris] Onset: 11-26-2022 09-30-2022 Chronic Coronary atherosclerosis and other heart disease (2 sources) Presence of coronary angioplasty implant and graft; 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: [Presence of coronary angioplasty implant and graft] Onset: 09-04-2024 Episodic Diabetes mellitus without complication (2 sources) Type 2 diabetes mellitus without complications; 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: [Type 2 diabetes mellitus without complications] Onset: 06-30-2024 Chronic Disorders of lipid metabolism (3 sources) [...] complications and secondary hypertension (4 sources) Hypertensive heart disease with heart failure; 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: [Hypertensive urgency] Onset: 07-11-2024 Chronic Inflammation; infection of eye (except that [...] ureters (2 sources) Hydronephrosis 08-02-2019 Episodic Other endocrine disorders (2 sources) Other primary hyperaldosteronism; 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: [Other primary hyperaldosteronism] Onset: 10-03-2024 Chronic Other gastrointestinal disorders (2 sources) Adrenal mass 12-20-2019 Episodic Other lower respiratory disease (2 sources) Solitary pulmonary nodule; 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: [Solitary pulmonary nodule] Onset: 07-20-2024 Episodic Other nervous system disorders (2 sources) Paresthesia 08-02-2019 Episodic Other nutritional; endocrine; and metabolic disorders (2 sources) Body mass index 30+ - obesity 07-02-2021 Chronic Other nutritional; endocrine; and metabolic disorders (2 sources) Other obesity due to excess calories; 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: [Other obesity due to excess calories] Onset: 07-18-2024 Chronic Other nutritional; endocrine; and metabolic disorders (2 sources) Body mass index (BMI) 37.0-37.9, adult; 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: [Body mass index (BMI) 37.0-37.9, adult] Onset: 07-18-2024 Chronic Other skin disorders (2 sources) Inflamed seborrheic keratosis 10-31-2020 Episodic Peripheral and visceral atherosclerosis (2 sources) Atherosclerosis of renal artery; 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: [Atherosclerosis of renal artery] Onset: 07-18-2024 Chronic Residual codes; unclassified (2 sources) Obstructive sleep apnea syndrome 10-30-2020 Chronic Residual codes; unclassified (1 source) Obstructive sleep apnea (adult) (pediatric); 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: [OBSTRUCTIVE SLEEP APNEA] Onset: 11-26-2022 Chronic Substance-related disorders (2 sources) Nicotine dependence 12-20-2019 Chronic Syncope (2 sources) Syncope and collapse; 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: [Syncope and collapse] Onset: 07-18-2024 Episodic Transient cerebral ischemia (2 sources) Transient cerebral ischemia 10-30-2020 Chronic Unclassified (2 sources) Injury of left ureter 12-20-2019 Unclassified (1 source) CONTACT W/AND (SUSP) EXPOS COVID-19; 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: [CONTACT W/AND (SUSP) EXPOS COVID-19] Onset: 11-26-2022 Unclassified (1 source) Obesity, class 2; 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: [Obesity, class 2] Onset: 08-29-2024 Unclassified (1 source) Resistant hypertension; 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: [Resistant hypertension] Onset: 07-18-2024 Past or Other Problems Problem Classification Problem Date Documented Date Episodic/Chronic Calculus of urinary tract (5 sources) History of calculus of kidney; 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: [Kidney stone] Onset: 11-26-2022 12-20-2019 Episodic Fluid and electrolyte disorders (2 sources) Hypokalemia; 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: [Hypokalemia] Onset: 07-11-2024 Episodic Nonspecific chest pain (2 sources) Chest pain, unspecified; Translations: [Chest pain, unspecified] Onset: 06-29-2024 Episodic Other aftercare (1 source) MCFP (current) use of aspirin; Translations: [HALF-WAY CURRENT USE OF ASPIRIN] Onset: 11-26-2022 Episodic Other aftercare (1 source) 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 (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 therapy; Translations: [OTH HALF-WAY CURRENT DRUG THERAPY] Onset: 11-26-2022 Episodic Other and unspecified benign neoplasm (2 sources) Benign neoplasm of left adrenal gland; Translations: [Benign neoplasm of left adrenal gland] Onset: 07-11-2024 Episodic Other circulatory disease (1 source) Personal history of transient ischemic attack (TIA), and cerebral infarction without residual deficits; Translations: [PERS HX TIA AND CI NO RESID DEFICIT] Onset: 11-26-2022 Episodic Other connective tissue disease (3 sources) Other specified soft tissue disorders; Translations: [OTHER SPEC SOFT TISSUE DISORDERS] Onset: 09-24-2022 Episodic Other lower respiratory disease (2 sources) Other forms of dyspnea; Translations: [Other forms of dyspnea] Onset: 05-26-2024 Episodic Other screening for suspected conditions (not mental disorders or infectious disease) (6 sources) Encounter for screening for malignant neoplasm of colon; Translations: [Abnormal electrocardiogram [ECG] [EKG]] Onset: 11-25-2022 Episodic Other skin disorders (1 [...] Test Name Value Interpretation Reference Range Facility 29on 10-03-2024 29 Addended by: FENG CHRISTIE on: 10/12/2024 10:02 AM Modules accepted: Orders [facility] 37on 10-03-2024 37 It was good to see y ou again Your recent CAT scan is reassuring showing me that your left adrenal mass has actually shrunk in size we no longer need to monitor this at all with any repeat CAT scans. To confirm if you have primary aldosteronism were going to do something called a saline infusion test at the [email or web address] they will be in contact with you likely within the next week. This is a 2-hour test in which we infused saline 2 L and assess any changes in your aldosterone level. This is in a monitored setting so you will not be alone. [facility] Follow-Upon 10-03-2024 Follow-Up [id number] Aby Madrigal 1965 F Date Provider Department Center 10/03/2024 [id number], [facility] ENDOCR [facility] Family History Problem Relation Age of Onset Lung cancer Mother No Known Problems Father Lung cancer Sister Family Status - Relation Status Age at Mother Father Sister Level of Service:85602 NE OFFICE/OUTPATIENT ESTABLISHED MOD MDM 30 MIN Reason for Visit and Comments: Follow-up [364458] [facility] Office Visiton 09-04-2024 Follow-up visit [id number] Aby Madrigal 1965 F Date Provider Department Center 09/04/2024 GOMEZ KENDALL RIAZ [place] Family History Problem Relation Age of Onset Lung cancer Mother No Known Problems Father Lung cancer Sister Family Status - Relation Status Age at Mother Father Sister Level of Service:09651 NE OFFICE/OUTPATIENT ESTABLISHED MOD MDM 30 MIN [facility] ALDOSTERONEon 08-29-2024 ALDOSTERONE (NG/DL) IN SER/PLAS 13.0 ng/dL [facility] Comment on above: Result Comment: INTE [...] reference intervals for this test in the [facility] ([facility]). Performed By: [facility] [address] [place] [id number] Batch Weigher: Navneet Simeon MD, PhD CLIA Number: [id number] Performed By: #### L [id number] #### [facility] (BEAKER) [address] [place] [address] Ron 08-29-2024 ALT [Catalytic activity/Vol] 25 U/L Normal 7-52 [facility] Comment on above: Performed By: #### L [id number] ####[facility] (BEAKER)[address] [place] [address] Riki 08-29-2024 AST [Catalytic activity/Vol] 21 U/L Normal 13-39 [facility] Comment on above: Performed By: #### L [id number] ####[facility] (BEAKER)[address] [place] [address] BASIC METABOLIC PANELon 10-0 Anion gap [Moles/Vol] 12 mmol/L Normal 7-20 [facility] Comment on above: Performed By: #### L [id number] ####[facility] (BEAKER)[address] [place] [address] Calcium [Mass/Vol] 9.3 mg/dL Normal 8.6-10.3 [facility] Comment on above: Performed By: #### L [id number] ####[facility] (BEAKER)[address] [place] [address] Chloride [Moles/Vol] 105 mmol/L Normal 98-107 [facility] Comment on above: Performed By: #### L [id number] ####[facility] (BEAKER)[address] [place] [address] CO2 [Moles/Vol] 28 mmol/L Normal 21-31 [facility] Comment on above: Performed By: #### L [id number] ####[facility] ([facility])[address] [place] [address] Creatinine [Mass/Vol] 0.95 mg/dL Normal 0.60-1.20 [facility] Comment on above: Performed By: #### L [id number] ####[facility] ([facility])[address] [place] [address] GLOMERULAR FILTRATION RATE ML/MIN/1.73 SQ M.PREDICTED 68.6 mL/min/1.73m*2 Normal >60.0 [facility] Comment on above: Result Comment: [facility]???s estimated glomerular filtration rate (eGFR) will [...] of individuals. Performed By: #### L [id number] ####[facility] ([facility])[address] [place] [address] Glucose [Mass/Vol] 99 mg/dL Normal 70-100 [facility] Comment on above: Performed By: #### L [id number] ####[facility] ([facility])[address] [place] [address] Potassium [Moles/Vol] 3.6 mmol/L Normal 3.5-5.1 [facility] Comment on above: Performed By: #### L [id number] ####[facility] ([facility])[address] [place] [address] Sodium [Moles/Vol] 141 mmol/L Normal 136-145 [facility] Comment on above: Performed By: #### L [id number] ####[facility] ([facility])[address] [place] [address] Urea nitrogen [Mass/Vol] 19 mg/dL Normal 7-25 [facility] Comment on above: Performed By: #### L [id number] ####[facility] ([facility])[address] [place] [address] UREA NITROGEN/CREATININE (MASS RATIO) IN SER/PLAS 20.0 Normal [facility] Comment on above: Performed By: #### L [id number] ####[facility] ([facility])[address] [address] CORTISOLon 08-29-2024 CORTISOL (UG/DL) IN SER/PLAS 6.1 ug/dL Normal 0-9 [facility] Comment on above: Performed By: #### L [id number] #### [facility] ([facility]) [address] [place] [address] CT ABDOMEN PELVIS W AND WO I [...] Society Guidelines, Radiology 2017. Electronically signed: Marybeth Lane Invalid Interpretation Code [facility] DEXAMETHASONE LEVELon 2023 DEXAMETHASONE <50.0 Normal [facility] Comment on above: Order Comment: Blood test to be done after overnight fasting except for plain water from 8 pm. About 8 to 9 hours after taking 1 mg dexamethasone the night prior. Result Comment: INTE RPRETIVE INFORMATION: Dexamethasone, Serum [...] developed and its performance characteristics determined by [facility]. It has not been cleared or approved by the US Food and Drug Administration. This test was performed in a CLIA certified laboratory and is intended for clinical purposes. Performed By: [facility] [address] [place] [address] Batch Weigher: Navneet Simeon MD, PhD CLIA Number: [id number] Performed By: #### L [id number] #### [facility] ([facility]) [address] [place] [address] LIPID PANELon 08-29-2024 CHOL/HDL 2.4 mg/dL Normal [facility] Comment on above: Performed By: #### L [id number] #### [facility] ([facility]) [address] [place] [address] Cholesterol [Mass/Vol] 80 mg/dL Low 120-200 [facility] Comment on above: Performed By: #### L [id number] #### [facility] ([facility]) [address] [place] [address] Magnesium [Mass/Vol] 96 mg/dL Normal 40-149 [facility] Comment on above: Result Comment: TRIG LYCERIDE REFERENCE RANGE: 20 YEARS AND OLDER CARDIOVASCULAR RISK LESS THAN 150 mg/dL LOW RISK 150 TO 199 mg/dL BORDERLINE RISK 200 mg/dL AND GREATER HIGH RISK Performed By: #### L [id number] #### [facility] ([facility] [address] [place] [address] Magnesium [Mass/Vol] 28 mg/dL Normal 0-160 [facility] Comment on above: Performed By: #### L [id number] #### [facility] ([facility] [address] [place] [address] Magnesium [Mass/Vol] 33 mg/dL Normal 23-92 [facility] Comment on above: Performed By: #### L [id number] #### [facility] (BEAKER) [address] [place] [address] NON HDL CHOL. (LDL+VLDL) 47 Normal [facility] Comment on above: Performed By: #### L [id number] #### [facility] (BEAKER) [address] [place] [address] TOTAL VLDL-C 19 mg/dL Normal 0-40 [facility] Comment on above: Performed By: #### L [id number] #### [facility] ([facility]AKER) [address] [place] [address] Labon 08-29-2024 Lab [id number] Aby Madrigal Cristina 1965 F Date Provider Department Center 08/29/2024 [id number]-[facility] OPD LAB RESOURCE [facility] OPD [facility] Family History Problem Relation Age of Onset Lung cancer Mother No Known Problems Father Lung cancer Sister Family Status - Relation Status Age at Mother Father Sister Normal [facility] RENIN ACTIVITYon 08-29-2024 RENIN ACTIVITY <0.1 Normal [facility] Comment on above: Result Comment: INTE [...] developed and its performance characteristics determined by [facility]. It has not been cleared or approved by the US Food and Drug Administration. This test was performed in a CLIA certified laboratory and is intended for clinical purposes. Performed By: [facility] [address] [place] [address] Batch Weigher: Navneet Simeon MD, PhD CLIA Number: [id number] Performed By: #### L [id number] ####[facility] ([facility])[address] [place] [address] 36on 08-10-2024 36 Updated patient on Nodify blood test results and plan for f/u CT and appt scheduled for 10/26/24. Normal [facility] Letter (Out)on 08-09-2024 Letter (Out) [id number] Aby Madrigal 1965 F Date Provider Department Center 08/09/2024 None-None [facility] ADMIT None Family History Problem Relation Age of Onset Lung cancer Mother No Known Problems Father Lung cancer Sister Family Status - Relation Status Age at Mother Father Sister Normal [facility] 36on 08-08-2024 36 Called patient over the phone at 9:17 AM - discussed recent lab results from [facility] (including M cortisol of 1.7 after dex, renin undetectable, aldosterone level 4.4) - ruled out autonomous cortisol production - she has stopped spironolactone for about 2 weeks now, continue to hold this until our next appt and we will reassess ARR. We will meet again on Oct 03 She thanked me for the call Normal [facility] Orders Onlyon 08-08-2024 Orders Only [id number] Rohan,Aby S 1965 F Date Provider Department Center 08/08/2024 RICHA MERINO ONC NICKI Family History Problem Relation Age of Onset Lung cancer Mother No Known Problems Father Lung cancer Sister Family Status - Relation Status Age at Mother Father Sister Normal [facility] Telephoneon 08-08-2024 Telephone [id number] Rohan,Aby S 1965 F Date Provider Department Center 08/08/2024 [id number], [facility] ENDOCR [facility] Family History Problem Relation Age of Onset Lung cancer Mother No Known Problems Father Lung cancer Sister Family Status - Relation Status Age at Mother Father Sister Normal [facility] Telemedicineon 07-20-2024 Telemedicine [id number] Emmababebe,Aby S 1965 Date Provider Department Center 07/20/2024 RICHA MERINO ONC NICKI Family History Problem Relation Age of Onset Lung cancer Mother No Known Problems Father Lung cancer Sister Family Status - Relation Status Age at Mother Father Sister Level of Service:66527 NE PHYS/QHP TELEPHONE EVALUATION 21-30 MIN () Reason for Visit and Comments: 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 CT CHEST 04-21-24- PET 06-21-24 Films requested 07-18-24 HAVING HARD TIME GETTING FILMS FROM [facility] AGAIN. Ginny at [facility] ([phone] direct line) is working on sending them. CHECK [facility] FOR FILMS PLEASE [facility] 37on 07-18-2024 37 It was great [...] lab work done at one of these [facility] Lab Sites The results will then come straight to me I appreciate it [facility] [address] [facility] [address], [place] Hours Wednesday - Wednesday 8 AM - 4PM (Closed 12 - 12:30 PM daily) Phone: [facility] Lobby [address] Hours: Wednesday 6 AM - 5 PM Saturday: 7 AM - 2 PM Phone: [address] [place] Hours: Wednesday - Wednesday 7 AM - 3:30 PM Phone: [facility] [address] Hours: Wednesday 7 AM - 5:30 PM Phone: [facility] [address] Hours: Wednesday - Wednesday 8 AM - 4:30 PM Phone: Normal [facility] EDNURSon 07-18-2024 EDNURS ADR and relevant inf o reported to [facility] in pharmacy d/t safety net being down. Viet Kelly RN 07/18/24 1139 Normal [facility] EDNURS SENT FROM MD OFFICE RE: LOW BP; RECENT DC FROM [facility] FOR SAME Normal [facility] EDPROVon 07-18-2024 EDPROV HPI Chief Complaint [...] new meds yesterday. 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 Normal [facility] Office Visiton 07-18-2024 Follow-up visit [id number] Aby Madrigal 1965 Date Provider Department Center 07/18/2024 FENG SWEENEY [facility] Family History Problem Relation Age of Onset Lung cancer Mother No Known Problems Father Lung cancer Sister Family Status - Relation Status Age at Mother Father Sister Level of Service:54603 NE OFFICE/OUTPATIENT NEW MODERATE MDM 45 MINUTES Reason for Visit and Comments: Nodules [Other] Normal [facility] Follow-up visit [id number] Aby Madrigal 1965 F Date Provider Department Center 07/18/2024 FENG S[place]Y [facility] Family History Problem Relation Age of Onset Lung cancer Mother No Known Problems Father Lung cancer Sister Family Status - Relation Status Age at Mother Father Sister 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 I am calling you to follow up [...] No Patient Name Aby Madrigal Date 07/13/24 [facility] Telephoneon 07-13-2024 Telephone [id number] Aby Madrigal 1965 F Date Provider Department Center 07/13/2024 GINNY MALONEY [facility] Family History Problem Relation Age of Onset Lung cancer Mother No Known Problems Father Lung cancer Sister Family Status - Relation Status Age at Mother Father Sister Reason for Visit and Comments: Hospital Follow-up [832] [facility] 30on 07-12-2024 30 The patient is [...] to address these barriers include . Normal [facility] ANTI-XA (HEPARIN LEVEL)on HEPARIN UNFRACTIONATED (U/ML) IN PPP BY CHROMOGENIC METHOD 0.60 IU/mL Normal 0.3-0.7 [facility] Comment on above: Order Comment: Check anti-Xa level every 6 hours while on heparin infusion, or per protocol. Result Comment: Radha roxaban and Apixaban will interfere with the anti Xa assay used to monitor UFH and LMWH. Performed By: #### L [id number] #### [facility] ([facility] [address] [place] [address] BASIC METABOLIC PANELon 06-23 Anion gap [Moles/Vol] 10 mmol/L Normal 7-20 [facility] Comment on above: Performed By: #### L [id number] #### [facility] ([facility] [address] [facility] [place] [address] Calcium [Mass/Vol] 8.8 mg/dL Normal 8.6-10.3 [facility] Comment on above: Performed By: #### L [id number] #### [facility] (BEAKER) [address] [place] [address] Chloride [Moles/Vol] 108 mmol/L High 98-107 [facility] Comment on above: Performed By: #### L [id number] #### [facility] (BEAKER) [address] [place] [address] CO2 [Moles/Vol] 27 mmol/L Normal 21- [facility] Comment on above: Performed By: #### L [id number] #### [facility] (BEAKER) [address] [address] Creatinine [Mass/Vol] 0.89 mg/dL Normal 0.60-1.20 [facility] Comment on above: Performed By: #### L [id number] #### [facility] (BEAKER) [address] [place] [address] GLOMERULAR FILTRATION RATE ML/MIN/1.73 SQ M.PREDICTED 74.2 mL/min/1.73m*2 Normal >60.0 [facility] Comment on above: Result Comment: [facility]???s estimated glomerular filtration rate (eGFR) will [...] group of individuals. Performed By: #### L [id number] #### [facility] ([facility]) [address] [place] [address] Glucose [Mass/Vol] 109 mg/dL High 70-100 [facility] Comment on above: Performed By: #### L [id number] #### [facility] ([facility]) [address] [place] [address] Potassium [Moles/Vol] 3.4 mmol/L Low 3.5-5.1 [facility] Comment on above: Performed By: #### L [id number] #### [facility] ([facility]) [address] [place] [address] Sodium [Moles/Vol] 142 mmol/L Normal 136-145 [facility] Comment on above: Performed By: #### L [id number] #### [facility] ([facility]) [address] [place] [address] Urea nitrogen [Mass/Vol] 11 mg/dL Normal 7-25 [facility] Comment on above: Performed By: #### L [id number] #### [facility] ([facility]) [address] [place] [address] UREA NITROGEN/CREATININE (MASS RATIO) IN SER/PLAS 12.4 Normal [facility] Comment on above: Performed By: #### L [id number] #### [facility] ([facility]) [address] [place] [address] CBC WITH AUTO DIFFERENTIALon 07-12-2024 Basophils (Bld) [#/Vol] 0.04 10*3/uL Normal 0.00-0.20 [facility] Comment on above: Performed By: #### L [id number] #### [facility] ([facility]) [address] [place] [address] Basophils/100 WBC (Bld) 0.6 % Normal 0.0-1.0 [facility] Comment on above: Performed By: #### L [id number] #### [facility] ([facility]) [address] [place] [address] Eosinophils (Bld) [#/Vol] 0.22 10*3/uL Normal 0.00-0.50 [facility] Comment on above: Performed By: #### L [id number] #### [facility] ([facility]) [address] [place] [place] [address] Eosinophils/100 WBC (Bld) 3.5 % Normal 0.0-6.0 [facility] Comment on above: Performed By: #### L [id number] #### [facility] ([facility]) [address] [place] [address] Erythrocyte distribution width (RBC) [Ratio] 14.5 % Normal 11.5-15.0 [facility] Comment on above: Performed By: #### L [id number] #### [facility] ([facility]) [address] [place] [address] ERYTHROCYTE MEAN CORPUSCULAR HEMOGLOBIN CONCENTRATION (G/DL) BY AUTOMATED 32.7 g/dL Normal 32.0-35.0 [facility] Comment on above: Performed By: #### L [id number] #### [facility] ([facility] [address] [place] [address] Hematocrit (Bld) [Volume fraction] 34.2 % Low 36.0-48.0 [facility] Comment on above: Performed By: #### L [id number] #### [facility] ([facility] [address] [place] [address] Hemoglobin (Bld) [Mass/Vol] 11.2 g/dL Low 12.0-15.0 [facility] Comment on above: Performed By: #### L [id number] #### [facility] (BEAKER) [address] [place] [address] Immature granulocytes (Bld) [#/Vol] 0.01 10*3/uL Normal 0.00-0.20 [facility] Comment on above: Performed By: #### L [id number] #### [facility] (BEAKER) [address] [place] [address] Immature granulocytes/100 WBC (Bld) 0.2 % Normal 0.0-1.0 [facility] Comment on above: Performed By: #### L [id number] #### [facility] ([facility] [address] [place] [address] Lymphocytes (Bld) [#/Vol] 2.37 10*3/uL Normal 1.20-4.00 [facility] Comment on above: Performed By: #### L [id number] #### [facility] (BEAKER) [address] [place] [place] [address] Lymphocytes/100 WBC (Bld) 37.8 % Normal 20.0-45.0 [facility] Comment on above: Performed By: #### L [id number] #### [facility] (BEAKER) [address] [place] [address] MCH (RBC) [Entitic mass] 27.4 pg Normal 27.0-33.0 [facility] Comment on above: Performed By: #### L [id number] #### [facility] (BEAKER) [address] [place] [address] MCV (RBC) [Entitic vol] 83.6 fL Normal 82.0-98.0 [facility] Comment on above: Performed By: #### L [id number] #### [facility] (BEAKER) [address] [place] [address] Monocytes (Bld) [#/Vol] 0.43 10*3/uL Normal 0.10-1.00 [facility] Comment on above: Performed By: #### L [id number] #### [facility] ([facility]) [address] [place] [address] Monocytes/100 WBC (Bld) 6.9 % Normal 5.0-12.0 [facility] Comment on above: Performed By: #### L [id number] #### [facility] ([facility]) [address] [place] [address] Neutrophils (Bld) [#/Vol] 3.20 10*3/uL Normal 1.60-7.60 [facility] Comment on above: Performed By: #### L [id number] #### [facility] ([facility]) [address] [place] [address] Neutrophils/100 WBC (Bld) 51.0 % Normal 40.0-72.0 [facility] Comment on above: Performed By: #### L [id number] #### [facility] ([facility]) [address] [place] [address] NRBC (PER 100 WBCS) BY AUTOMATED COUNT 0.0 % Normal 0 [facility] Comment on above: Performed By: #### L [id number] #### [facility] ([facility]) [address] [place] [address] PLATELETS (10*3/UL) IN BLOOD AUTOMATED COUNT 223 10*3/uL Normal 150-400 [facility] Comment on above: Performed By: #### L [id number] #### [facility] ([facility]) [address] [place] [address] RBC (Bld) [#/Vol] 4.09 10*6/uL Normal 3.80-5.00 [facility] Comment on above: Performed By: #### L [id number] #### [facility] ([facility]) [address] [place] [address] WBC (Bld) [#/Vol] 6.27 10*3/uL Normal 4.00-10.60 [facility] Comment on above: Performed By: #### L [id number] #### [facility] ([facility]) [address] [place] [address] MAGNESIUMon 07-12-2024 Magnesium [Mass/Vol] 1.7 mg/dL Low 1.9-2.7 [facility] Comment on above: Performed By: #### L [id number] #### [facility] ([facility]) [address] [place] [address] POCT GLUCOSE METER UNSOLICIT ED RESULTSon 07-12-2024 Glucose [Mass/Vol] 102 mg/dL Normal 70-105 [facility] Comment on above: Order Comment: Waive d Testing in the ED is performed under the ED CLIA certificate #[id number]. Result Comment: [email or web address] Performed By: #### L [id number] ####[facility] ([facility])[address] [place] [address] TROPONIN Ion 07-12-2024 Troponin I.cardiac [Mass/Vol] 0.01 ng/mL Normal 0.00-0.04 [facility] Comment on above: Performed By: #### L [id number] #### [facility] ([facility]) [address] [place] [address] 30on 07-11-2024 30 The patient is Moderately [...] and maintained or improved Outcome: Progressing Normal [facility] 30 The patient is Moderately Stable - Low risk of patient condition declining or worsening The patient's goals for the shift include no chest pain The clinical goals for the shift include stable vital/no chest pain Over the shift, the patient did not make progress toward the following goals. Barriers to progression include . Recommendations to address these barriers include . Normal [facility] ALDOSTERONEon 07-11-2024 ALDOSTERONE (NG/DL) IN SER/PLAS 4.9 ng/dL Normal [facility] Comment on above: Result Comment: INTE [...] reference intervals for this test in the [facility] ([employer]). Performed By: [facility] [address] [place] [address] Batch Weigher: Navneet Simeon MD, PhD CLIA Number: [id number] Performed By: #### L [id number] ####[facility] (BEAKER)[address] [place] [address] ANTI-XA (HEPARIN LEVEL)on HEPARIN UNFRACTIONATED (U/ML) IN PPP BY CHROMOGENIC METHOD 0.42 IU/mL Normal 0.3-0.7 [facility] Comment on above: Order Comment: Check anti-Xa level every 6 hours while on heparin infusion, or per protocol. Result Comment: Alma roxaban and Apixaban will interfere with the anti Xa assay used to monitor UFH and LMWH. Performed By: #### L [id number] ####[facility] (BEAKER)[address] [place] [address] HEPARIN UNFRACTIONATED (U/ML) IN PPP BY CHROMOGENIC METHOD 0.20 IU/mL Low 0.3-0.7 [facility] Comment on above: Order Comment: Waive d Testing in the ED is performed under the ED CLIA certificate #[id number]. Result Comment: Radha roxaban and Apixaban will interfere with the anti Xa assay used to monitor UFH and LMWH. Performed By: #### L [id number] #### [facility] (BEAKER) [address] [place] [address] APTTon 07-11-2024 ACTIVATED PARTIAL THROMBOPLASTIN TIME IN PPP BY COAGULATION ASSAY 43.0 Seconds High 25.0-35.0 [facility] Comment on above: Result Comment: Clin ical significance of the APTT is questionable in the presence of heparin. Performed By: #### L [id number] #### [facility] ([facility] [address] [place] [address] BASIC METABOLIC PANELon 06-23 Anion gap [Moles/Vol] 9 mmol/L Normal 7-20 [facility] Comment on above: Performed By: #### L [id number] ####[facility] ([facility] [place] [address] Calcium [Mass/Vol] 8.8 mg/dL Normal 8.6-10.3 [facility] Comment on above: Performed By: #### L [id number] ####[facility] ([facility] [place] [address] Chloride [Moles/Vol] 108 mmol/L High 98-107 [facility] Comment on above: Performed By: #### L [id number] ####[facility] ([facility] [place] [address] CO2 [Moles/Vol] 28 mmol/L Normal 21-31 [facility] Comment on above: Performed By: #### L [id number] ####[facility] ([facility] [place] [address] Creatinine [Mass/Vol] 1.09 mg/dL Normal 0.60-1.20 [facility] Comment on above: Performed By: #### L [id number] ####[facility] (BEAKER)[address] [place] [address] GLOMERULAR FILTRATION RATE ML/MIN/1.73 SQ M.PREDICTED 58.2 mL/min/1.73m*2 Low >60.0 [facility] Comment on above: Result Comment: [facility]???s estimated glomerular filtration rate (eGFR) will [...] of individuals. Performed By: #### L [id number] ####[facility] ([facility] [place] [address] Glucose [Mass/Vol] 113 mg/dL High 70-100 [facility] Comment on above: Performed By: #### L [id number] ####[facility] (BEAKER)[address] [place] [address] Potassium [Moles/Vol] 3.4 mmol/L Low 3.5-5.1 [facility] Comment on above: Performed By: #### L [id number] ####[facility] ([facility] [place] [address] Sodium [Moles/Vol] 142 mmol/L Normal 136-145 [facility] Comment on above: Performed By: #### L [id number] ####[facility] (BEAKER)[address] [place] [address] Urea nitrogen [Mass/Vol] 14 mg/dL Normal 7-25 [facility] Comment on above: Performed By: #### L [id number] ####[facility] (BEAKER)[address] [place] [address] UREA NITROGEN/CREATININE (MASS RATIO) IN SER/PLAS 12.8 Normal [facility] Comment on above: Performed By: #### L [id number] ####[facility] (BEAKER)[address] [place] [address] CBC WITH AUTO DIFFERENTIALon 07-11-2024 Basophils (Bld) [#/Vol] 0.04 10*3/uL Normal 0.00-0.20 [facility] Comment on above: Performed By: #### L [id number] #### [facility] (BEAKER) [address] [place] [address] Basophils/100 WBC (Bld) 0.6 % Normal 0.0-1.0 [facility] Comment on above: Performed By: #### L [id number] #### [facility] (BEAKER) [address] [place] [address] Eosinophils (Bld) [#/Vol] 0.16 10*3/uL Normal 0.00-0.50 [facility] Comment on above: Performed By: #### L [id number] #### [facility] ([facility] [address] [place] [address] Eosinophils/100 WBC (Bld) 2.2 % Normal 0.0-6.0 [facility] Comment on above: Performed By: #### L [id number] #### [facility] ([facility] [address] [place] [address] Erythrocyte distribution width (RBC) [Ratio] 14.6 % Normal 11.5-15.0 [facility] Comment on above: Performed By: #### L [id number] #### [facility] ([facility] [address] [place] [address] ERYTHROCYTE MEAN CORPUSCULAR HEMOGLOBIN CONCENTRATION (G/DL) BY AUTOMATED 32.0 g/dL Normal 32.0-35.0 [facility] Comment on above: Performed By: #### L [id number] #### [facility] (BEAKER) [address] [place] [address] Hematocrit (Bld) [Volume fraction] 36.2 % Normal 36.0-48.0 [facility] Comment on above: Performed By: #### L [id number] #### [facility] (BEAKER) [address] [place] [address] Hemoglobin (Bld) [Mass/Vol] 11.6 g/dL Low 12.0-15.0 [facility] Comment on above: Performed By: #### L [id number] #### [facility] ([facility] [address] [place] [address] Immature granulocytes (Bld) [#/Vol] 0.02 10*3/uL Normal 0.00-0.20 [facility] Comment on above: Performed By: #### L [id number] #### [facility] ([facility]) [address] [place] [address] Immature granulocytes/100 WBC (Bld) 0.3 % Normal 0.0-1.0 [facility] Comment on above: Performed By: #### L [id number] #### [facility] ([facility]) [address] [place] [address] Lymphocytes (Bld) [#/Vol] 2.34 10*3/uL Normal 1.20-4.00 [facility] Comment on above: Performed By: #### L [id number] #### [facility] ([facility]) [address] [place] [address] Lymphocytes/100 WBC (Bld) 32.6 % Normal 20.0-45.0 [facility] Comment on above: Performed By: #### L [id number] #### [facility] ([facility]) [address] [place] [address] MCH (RBC) [Entitic mass] 27.2 pg Normal 27.0-33.0 [facility] Comment on above: Performed By: #### L [id number] #### [facility] ([facility] [address] [place] [address] MCV (RBC) [Entitic vol] 85.0 fL Normal 82.0-98.0 [facility] Comment on above: Performed By: #### L [id number] #### [facility] (BEAKER) [address] [place] [address] Monocytes (Bld) [#/Vol] 0.49 10*3/uL Normal 0.10-1.00 [facility] Comment on above: Performed By: #### L [id number] #### [facility] ([facility]) [address] [place] [address] Monocytes/100 WBC (Bld) 6.8 % Normal 5.0-12.0 [facility] Comment on above: Performed By: #### L [id number] #### [facility] ([facility]) [address] [place] [address] Neutrophils (Bld) [#/Vol] 4.13 10*3/uL Normal 1.60-7.60 [facility] Comment on above: Performed By: #### L [id number] #### [facility] ([facility]) [address] [place] [address] Neutrophils/100 WBC (Bld) 57.5 % Normal 40.0-72.0 [facility] Comment on above: Performed By: #### L [id number] #### [facility] ([facility]) [address] [place] [address] NRBC (PER 100 WBCS) BY AUTOMATED COUNT 0.0 % Normal 0 [facility] Comment on above: Performed By: #### L [id number] #### [facility] ([facility]) [address] [place] [address] PLATELETS (10*3/UL) IN BLOOD AUTOMATED COUNT 245 10*3/uL Normal 150-400 [facility] Comment on above: Performed By: #### L [id number] #### [facility] ([facility]) [address] [place] [address] RBC (Bld) [#/Vol] 4.26 10*6/uL Normal 3.80-5.00 [facility] Comment on above: Performed By: #### L [id number] #### [facility] ([facility]) [address] [place] [address] WBC (Bld) [#/Vol] 7.18 10*3/uL Normal 4.00-10.60 [facility] Comment on above: Performed By: #### L [id number] #### [facility] QIANA LALA) [place] [address] CONSULTon 07-11-2024 CONSULT -- Attestation signed by Meseret Apodaca MD at 07/11/2024 4:17 PM By [...] Brown is the endocrine surgeon in the [place] area that would be most appropriate and [...] with plan for outpatient follow up with [facility]ocrinology Meseret Apodaca MD Cardiology Consult Note Reason for Consult: Chest pain HPI: Aby Madrigal is a 59 y.o. female patient is presenting as a transfer from [facility] for the evaluation of chest pain. [...] medical history of Abnormal ECG, Diabetes mellitus ([facility]), Hyperlipidemia, Hypertension, Obstructive sleep apnea, Panic attacks, and Stroke ([facility]). Surgical History She has a past surgical [...] Value Ventricular Rate 56 Atrial Rate 56 NE Interval 180 QRS DURATION 94 QT Interval 430 QTC (more content not included)... Normal [facility] EDPROVon 07-11-2024 EDPROV HPI Chief Complaint [...] Pt states she was trasnfered here from [place] be transferred to cardiology. Pt states she had a cardiac stent placed last week. She denies fever, coughing, vomiting, abdominal pain. She admits diarrhea. She felt better when given ativan and worse when she was given morphine. She has had her gallbladder removed. History provided by: Patient paid search marketing analyst used: No Chest Pain Associated symptoms: no abdominal pain, no cough, no fever and no vomiting [place] Coma Scale Score: 15 Patient History Past [...] Basilia Butts, documented on behalf of Dr. Anderson. Chief complaint chest pain Plan of Care: APTT, Troponin I, CBC, Protime-INR, BMP Attestation: Provider Statement SALVADOR: Provider Statement 2nd Scribe. By electronically signing this emergency patient record, the Emergency Physician/FOOD PREPARATION WORKER/PA-C attests that all entries made into the electronic medical record by the scribe prior to the Physician/FOOD PREPARATION WORKER/PA-C signature reflect an accurate accounting of the evaluation and care rendered by that Emergency Physician/FOOD PREPARATION WORKER/PA-C. The Emergency Physician/FOOD PREPARATION WORKER/PA-C assumes full responsibility for those entries. The Emergency Physician/FOOD PREPARATION WORKER/PA-C also attests that any patient testing or treatment that was instituted by nursing staff. [facility] EDPROV HPI Chief Complaint Patient [...] Pt states she was trasnfered here from [place] to be transferred to cardiology. Pt states she had a cardiac stent placed last week. She denies fever, coughing, vomiting, abdominal pain. She admits diarrhea. She felt better when given ativan and worse when she was given morphine. She has had her gallbladder removed. History provided by: Patient paid search marketing analyst used: No Chest Pain Associated symptoms: no abdominal pain, no cough, no fever and no vomiting [place] Coma Scale Score: 15 Patient History Past Medical History: Diagnosis Date Abnormal ECG Diabetes mellitus ([facility]) Hyperlipidemia Hypertension Obstructive sleep apnea Panic attacks Stroke ([facility]) Past Surgical History: Procedure Laterality Date CEREBRAL [...] 07/11/24 1256 NSTEMI (non-ST elevated myocardial infarction) ([facility]) Medical Decision Making Amount and/or Complexity of Data Reviewed Labs: ordered. Decision-making details documented in ED Course. ECG/medicine tests: ordered and independent interpretation performed. Decision-making details documented in ED Course. Risk Drug therapy requiring intensive monitoring for toxicity. Decision regarding hospitalization. Minor surgery with identified risk factors. I, Basilia diallo (more content not included)... Invalid Interpretation Code [facility] POCT GLUCOSE METER UNSOLICIT ED RESULTSon 07-11-2024 Glucose [Mass/Vol] 122 mg/dL High 70-105 [facility] Comment on above: Order Comment: Waive d Testing in the ED is performed under the ED CLIA certificate #[id number]. Result Comment: [email or web address] Performed By: #### L [id number] #### [facility] ([facility]) [address] [place] [address] PROTIME-INRon 07-11-2024 INR IN PPP BY COAGULATION ASSAY 1.00 Normal 0.90-1.10 [facility] Comment on above: Result Comment: ACCC [...] RANGE. CHEST 1995;108:231S-246S. Performed By: #### L [id number] #### [facility] (BEAKER) [address] [place] [address] PROTHROMBIN TIME (PT) IN PPP BY COAGULATION ASSAY 13.2 Seconds Normal 12.3-14.8 [facility] Comment on above: Performed By: #### L [id number] #### [facility] ([facility]AK[facility]) [address] [place] [address] RENIN ACTIVITYon 07-11-2024 RENIN ACTIVITY <0.1 Normal [facility] Comment on above: Result Comment: INTE RPRETIVE INFORMATION: Renin Activity Adult, Normal sodium diet: Supine ................. 0.2-1.6 ng/mL/hr Upright ................ 0.5-4.0 ng/mL/hr Children, Normal sodium diet, Supine: [place] (1-7 days) ..... 2.0-35.0 ng/mL/hr Cord blood [...] developed and its performance characteristics determined by [employer]. It has not been cleared or approved by the US Food and Drug Administration. This test was performed in a CLIA certified laboratory and is intended for clinical purposes. Performed By: [facility] [address] [place] [id number] Batch Weigher: Navneet Simeon MD, PhD CLIA Number: [id number] Performed By: #### L [id number] #### [facility] (BEAKER) [address] [place] [address] TROPONIN Ion 07-11-2024 Troponin I.cardiac [Mass/Vol] 0.01 ng/mL Normal 0.00-0.04 [facility] Comment on above: Performed By: #### L [id number] ####[facility] ([facility])[address] [place] [address] Office Visiton 07-10-2024 Follow-up visit [id number] RohanAby Cristina 1965 F Date Provider Department Center 07/10/2024 [id number] VAZQUEZ [facility] Family History Problem Relation Age of Onset Lung cancer Mother No Known Problems Father Lung cancer Sister Family Status - Relation Status Age at Mother Father Sister Level of Service:79982 NE OFFICE/OUTPATIENT ESTABLISHED MOD MDM 30 MIN Reason for Visit and Comments: Coronary Artery Disease [187] Post-Cath [731] Normal [facility] 36on 07-03-2024 36 Post Discharge Call Good morning, I am Ginny Garcia, RN a lead nurse from [facility]. I am calling you to follow up [...] Patient Name Aby Madrigal Date 07/03/24 Normal [facility] Telephoneon 07-03-2024 Telephone [id number] Aby Madrigal 1965 F Date Provider Department Center 07/03/2024 Adela-GINNY GARCIA [facility] Family History Problem Relation Age of Onset Lung cancer Mother No Known Problems Father Lung cancer Sister Family Status - Relation Status Age at Mother Father Sister Reason for Visit and Comments: Hospital Follow-up [832] Normal [facility] 30on 07-01-2024 30 The patient is [...] and maintained or improved Outcome: Progressing Normal [facility] BASIC METABOLIC PANELon 06-22 Anion gap [Moles/Vol] 14 mmol/L Normal 7-20 [facility] Comment on above: Performed By: #### L [id number] #### [facility] ([facility]) [address] [place] [address] Calcium [Mass/Vol] 8.2 mg/dL Low 8.6-10.3 [facility] Comment on above: Performed By: #### L [id number] #### [facility] ([facility]) [address] [place] [address] Chloride [Moles/Vol] 106 mmol/L Normal 98-107 [facility] Comment on above: Performed By: #### L [id number] #### [facility] ([facility]) [address] [place] [address] CO2 [Moles/Vol] 25 mmol/L Normal 21-31 [facility] Comment on above: Performed By: #### L [id number] #### [facility] ([facility]) [address] [place] [address] Creatinine [Mass/Vol] 0.91 mg/dL Normal 0.60-1.20 [facility] Comment on above: Performed By: #### L [id number] #### [facility] ([facility]) [address] [place] [address] GLOMERULAR FILTRATION RATE ML/MIN/1.73 SQ M.PREDICTED 72.2 mL/min/1.73m*2 Normal >60.0 [facility] Comment on above: Result Comment: [facility]???s estimated glomerular filtration rate (eGFR) will [...] individuals. Performed By: #### L [id number] #### [facility] ([facility]) [address] [place] [address] Glucose [Mass/Vol] 101 mg/dL High 70-100 [facility] Comment on above: Performed By: #### L [id number] #### [facility] (BEAKER) [address] [place] [address] Potassium [Moles/Vol] 3.5 mmol/L Normal 3.5-5.1 [facility] Comment on above: Performed By: #### L [id number] #### [facility] (BEAKER) [address] [place] [address] Sodium [Moles/Vol] 141 mmol/L Normal 136-145 [facility] Comment on above: Performed By: #### L [id number] #### [facility] (BEAKER) [address] [place] [address] Urea nitrogen [Mass/Vol] 13 mg/dL Normal 7-25 [facility] Comment on above: Performed By: #### L [id number] #### [facility] ([facility] [address] [place] [address] UREA NITROGEN/CREATININE (MASS RATIO) IN SER/PLAS 14.3 Normal [facility] Comment on above: Performed By: #### L [id number] #### [facility] ([facility] [address] [place] [address] CBCon 07-01-2024 Erythrocyte distribution width (RBC) [Ratio] 15.4 % High 11.5-15.0 [facility] Comment on above: Performed By: #### L [id number] ####[facility] ([facility] [place] [address] ERYTHROCYTE MEAN CORPUSCULAR HEMOGLOBIN CONCENTRATION (G/DL) BY AUTOMATED 32.1 g/dL Normal 32.0-35.0 [facility] Comment on above: Performed By: #### L [id number] ####[facility] ([facility] [place] [address] Hematocrit (Bld) [Volume fraction] 38.6 % Normal 36.0-48.0 [facility] Comment on above: Performed By: #### L [id number] ####[facility] ([facility] [place] [address] Hemoglobin (Bld) [Mass/Vol] 12.4 g/dL Normal 12.0-15.0 [facility] Comment on above: Performed By: #### L [id number] ####[facility] ([facility] [place] [address] MCH (RBC) [Entitic mass] 26.9 pg Low 27.0-33.0 [facility] Comment on above: Performed By: #### L [id number] ####[facility] ([facility])[address] [place] [address] MCV (RBC) [Entitic vol] 83.7 fL Normal 82.0-98.0 [facility] Comment on above: Performed By: #### L [id number] ####[facility] ([facility])[address] [place] [address] PLATELETS (10*3/UL) IN BLOOD AUTOMATED COUNT 238 10*3/uL Normal 150-400 [facility] Comment on above: Performed By: #### L [id number] ####[facility] ([facility])[address] [place] [address] RBC (Bld) [#/Vol] 4.61 10*6/uL Normal 3.80-5.00 [facility] Comment on above: Performed By: #### L [id number] ####[facility] ([facility] [place] [address] WBC (Bld) [#/Vol] 7.04 10*3/uL Normal 4.00-10.60 [facility] Comment on above: Performed By: #### L [id number] ####[facility] ([facility] [place] [address] LIPID PANELon 07-01-2024 CHOL/HDL 3.8 mg/dL Normal [facility] Comment on above: Performed By: #### L [id number] #### [facility] (BEAKER) [address] [place] [address] Cholesterol [Mass/Vol] 128 mg/dL Normal 120-200 [facility] Comment on above: Performed By: #### L [id number] #### [facility] ([facility]) [address] [place] [address] Magnesium [Mass/Vol] 87 mg/dL Normal 40-149 [facility] Comment on above: Result Comment: TRIG LYCERIDE REFERENCE RANGE: 20 YEARS AND OLDER CARDIOVASCULAR RISK LESS THAN 150 mg/dL LOW RISK 150 TO 199 mg/dL BORDERLINE RISK 200 mg/dL AND GREATER HIGH RISK Performed By: #### L [id number] #### [facility] ([facility]) [address] [place] [address] Magnesium [Mass/Vol] 77 mg/dL Normal 0-160 [facility] Comment on above: Performed By: #### L [id number] #### [facility] ([facility]) [address] [place] [address] Magnesium [Mass/Vol] 34 mg/dL Normal 23-92 [facility] Comment on above: Performed By: #### L [id number] #### [facility] ([facility]) [address] [place] [address] NON HDL CHOL. (LDL+VLDL) 94 Normal [facility] Comment on above: Performed By: #### L [id number] #### [facility] ([facility]) [address] [place] [address] TOTAL VLDL-C 17 mg/dL Normal 0-40 [facility] Comment on above: Performed By: #### L [id number] #### [facility] ([facility]) [address] [facility] [place] [address] MAGNESIUMon 07-01-2024 Magnesium [Mass/Vol] 2.0 mg/dL Normal 1.9-2.7 [facility] Comment on above: Performed By: #### L [id number] ####[facility] ([facility])[address] [facility] [place] [address] NURSNOTEon 07-01-2024 NURSNOTE Discharge instructio ns given, reviewed, questions, answered, signed, copy received. Normal [facility] POCT GLUCOSE METER UNSOLICIT ED RESULTSon 07-01-2024 Glucose [Mass/Vol] 124 mg/dL High 70-105 [facility] Comment on above: Order Comment: Waive d Testing in the ED is performed under the ED CLIA certificate #[id number]. Result Comment: [email or web address] Performed By: #### L [id number] #### [facility] ([facility]) [address] [place] [address] Glucose [Mass/Vol] 106 mg/dL High 70-105 [facility] Comment on above: Order Comment: Waive d Testing in the ED is performed under the ED CLIA certificate #[id number]. Result Comment: [email or web address] Performed By: #### L [id number] #### [facility] ([facility]) [address] [facility] [place] [address] TROPONIN Ion 07-01-2024 Troponin I.cardiac [Mass/Vol] 0.09 ng/mL High 0.00-0.04 [facility] Comment on above: Performed By: #### L [id number] #### [facility] ([facility]) [address] [facility] [place] [address] 30on 06-30-2024 30 The patient is Moderately Stable - Low risk of patient condition declining or worsening The patient's goals for the shift include comfort, rest The clinical goals for the shift include stable vitals, comfort Problem: Pain - Adult Goal: Verbalizes/displays adequate comfort level or baseline comfort level Outcome: Not Progressing Normal [facility] 30 Daily Case Managemen t Update [...] PT Recommendations: OT Recommendations: New Consults: Normal [facility] 30 The patient is Moderately Stable - Low risk of patient condition declining or worsening The patient's goals for the shift include COMFORT The clinical goals for the shift include VSS Over the shift, the patient did not make progress toward the following goals. Barriers to progression include . Recommendations to address these barriers include . Normal [facility] ANTI-XA (HEPARIN LEVEL)on HEPARIN UNFRACTIONATED (U/ML) IN PPP BY CHROMOGENIC METHOD 0.64 IU/mL Normal 0.3-0.7 [facility] Comment on above: Order Comment: Check anti-Xa level every 6 hours while on heparin infusion, or per protocol. Result Comment: Alma roxaban and Apixaban will interfere with the anti Xa assay used to monitor UFH and LMWH. Performed By: #### L [id number] #### [facility] ([facility]) [address] [place] [address] BASIC METABOLIC PANELon 08 Anion gap [Moles/Vol] 11 mmol/L Normal 7-20 [facility] Comment on above: Performed By: #### L [id number] ####[facility] (BEAKER)[address] [place] [address] Calcium [Mass/Vol] 8.3 mg/dL Low 8.6-10.3 [facility] Comment on above: Performed By: #### L [id number] ####[facility] (BEAKER)[address] [place] [address] Chloride [Moles/Vol] 110 mmol/L High 98-107 [facility] Comment on above: Performed By: #### L [id number] ####[facility] (BEAKER)[address] [facility] [place] [address] CO2 [Moles/Vol] 26 mmol/L Normal 21-31 [facility] Comment on above: Performed By: #### L [id number] ####[facility] (BEAKER)[address] [place] [address] Creatinine [Mass/Vol] 0.81 mg/dL Normal 0.60-1.20 [facility] Comment on above: Performed By: #### L [id number] ####[facility] ([facility])[address] [place] [address] GLOMERULAR FILTRATION RATE ML/MIN/1.73 SQ M.PREDICTED 83.1 mL/min/1.73m*2 Normal >60.0 [facility] Comment on above: Result Comment: [facility]???s estimated glomerular filtration rate (eGFR) will [...] of individuals. Performed By: #### L [id number] ####[facility] ([facility])[address] [place] [address] Glucose [Mass/Vol] 110 mg/dL High 70-100 [facility] Comment on above: Performed By: #### L [id number] ####[facility] ([facility])[address] [place] [address] Potassium [Moles/Vol] 3.7 mmol/L Normal 3.5-5.1 [facility] Comment on above: Performed By: #### L [id number] ####[facility] ([facility] [place] [address] Sodium [Moles/Vol] 143 mmol/L Normal 136-145 [facility] Comment on above: Performed By: #### L [id number] ####[facility] ([facility] [place] [address] Urea nitrogen [Mass/Vol] 10 mg/dL Normal 7-25 [facility] Comment on above: Performed By: #### L [id number] ####[facility] ([facility])[address] [place] [address] UREA NITROGEN/CREATININE (MASS RATIO) IN SER/PLAS 12.3 Normal [facility] Comment on above: Performed By: #### L [id number] ####[facility] ([facility])[address] [place] [address] CBCon 06-30-2024 Erythrocyte distribution width (RBC) [Ratio] 15.3 % High 11.5-15.0 [facility] Comment on above: Performed By: #### L [id number] ####[facility] ([facility])[address] [place] [address] ERYTHROCYTE MEAN CORPUSCULAR HEMOGLOBIN CONCENTRATION (G/DL) BY AUTOMATED 31.3 g/dL Low 32.0-35.0 [facility] Comment on above: Performed By: #### L [id number] ####[facility] ([facility])[address] [place] [address] Hematocrit (Bld) [Volume fraction] 36.7 % Normal 36.0-48.0 [facility] Comment on above: Performed By: #### L [id number] ####[facility] ([facility])[address] [place] [address] Hemoglobin (Bld) [Mass/Vol] 11.5 g/dL Low 12.0-15.0 [facility] Comment on above: Performed By: #### L [id number] ####[facility] ([facility])[address] [place] [address] MCH (RBC) [Entitic mass] 26.9 pg Low 27.0-33.0 [facility] Comment on above: Performed By: #### L [id number] ####[facility] ([facility])[address] [place] [address] MCV (RBC) [Entitic vol] 85.7 fL Normal 82.0-98.0 [facility] Comment on above: Performed By: #### L [id number] ####[facility] ([facility] [place] [address] PLATELETS (10*3/UL) IN BLOOD AUTOMATED COUNT 243 10*3/uL Normal 150-400 [facility] Comment on above: Performed By: #### L [id number] ####[facility] ([facility])[address] [place] [address] RBC (Bld) [#/Vol] 4.28 10*6/uL Normal 3.80-5.00 [facility] Comment on above: Performed By: #### L [id number] ####[facility] ([facility])[address] [place] [address] WBC (Bld) [#/Vol] 7.41 10*3/uL Normal 4.00-10.60 [facility] Comment on above: Performed By: #### L [id number] ####[facility] ([facility])[address] [place] [address] CONSULTon 06-30-2024 CONSULT Cardiology Consult Note Reason for Consult: NSTEMI, transfer from [facility] HPI: Aby Madrigal, a 59 y.o. female patient, is transferred from [facility] for continuity of care. Past medical history includes: HTN History of TIA DMII HLD SURESH Overweight Patient reports that 3 days ago, she woke up in the mid of the night with indigestion, and a feeling fullness, but no pressure like chest pain. She presented to [facility], where she was found to be hypertensive. [...] Value Ventricular Rate 71 Atrial Rate 71 NE Interval 176 QRS DURATION 92 QT Interval 424 QTC CALCULATION(BAZETT) 460 P Sprague 52 R-Sprague 19 T Wave Sprague 164 Impression Normal sinus rhythm Left ventricular [...] Normal sinu (more content not included)... Normal [facility] HPon 06-30-2024 H&P reviewed. The patient was examined and there are no changes to the H&P. 59 y.o. year old female with a PMHx significant for DM2, hypertension presents a direct mission from [facility] with a chief complaint of chest [...] to proceed. Signed, Yris Oakley MD PGY-4 [employer] Pager: [phone] Normal [facility] POCT GLUCOSE METER UNSOLICIT ED RESULTSon 06-30-2024 Glucose [Mass/Vol] 170 mg/dL High 70-105 [facility] Comment on above: Order Comment: Waive d Testing in the ED is performed under the ED CLIA certificate #[id number]. Result Comment: [email or web address] Performed By: #### L [id number] #### [facility] ([facility]) [address] [place] [address] Glucose [Mass/Vol] 129 mg/dL High 70-105 [facility] Comment on above: Order Comment: Waive d Testing in the ED is performed under the ED CLIA certificate #[id number]. Result Comment: [email or web address] Performed By: #### L [id number] #### [facility] ([employer]) [address] [place] [address] Glucose [Mass/Vol] 167 mg/dL High 70-105 [facility] Comment on above: Order Comment: Waive d Testing in the ED is performed under the ED CLIA certificate #[id number]. Result Comment: [email or web address] Performed By: #### L [id number] #### [facility] ([facility]) [address] [place] [address] TROPONIN Ion 06-30-2024 Troponin I.cardiac [Mass/Vol] 0.07 ng/mL High 0.00-0.04 [facility] Comment on above: Performed By: #### L [id number] #### [facility] ([facility]) [address] [place] [address] Troponin I.cardiac [Mass/Vol] 0.10 ng/mL High 0.00-0.04 [facility] Comment on above: Performed By: #### L [id number] #### [facility] ([facility]) [address] [place] [address] Troponin I.cardiac [Mass/Vol] 0.11 ng/mL Critically high 0.00-0.04 [facility] Comment on above: Result Comment: M-TR OPONIN INITIAL CRITICAL HIGH; RESPUN AND RETESTED Performed By: #### L [id number] ####[facility] ([facility])[address] [place] [address] 30on 06-29-2024 30 The patient is Moderately Stable - Low risk of patient condition declining or worsening The patient's goals for the shift include COMFORT The clinical goals for the shift include VSS Normal [facility] APTTon 06-29-2024 ACTIVATED PARTIAL THROMBOPLASTIN TIME IN PPP BY COAGULATION ASSAY 34.5 Seconds Normal 25.0-35.0 [facility] Comment on above: Order Comment: Basel ine aPTT before initiating heparin infusion. Result Comment: Clin ical significance of the APTT is questionable in the presence of heparin. Performed By: #### L [id number] #### [facility] ([facility]) [address] [place] [address] B-TYPE NATRIURETIC PEPTIDEon 06-29-2024 Natriuretic peptide B (Bld) [Mass/Vol] 222 pg/mL High 0-100 [facility] Comment on above: Performed By: #### L [id number] ####[facility] ([facility])[address] [place] [address] CBC WITH AUTO DIFFERENTIALon 06-29-2024 Basophils (Bld) [#/Vol] 0.05 10*3/uL Normal 0.00-0.20 [facility] Comment on above: Performed By: #### L [id number] ####[facility] ([facility])[address] [place] [address] Basophils/100 WBC (Bld) 0.6 % Normal 0.0-1.0 [facility] Comment on above: Performed By: #### L [id number] ####[facility] [place] [facility] (BEAKER)[address] [place] [address] Eosinophils (Bld) [#/Vol] 0.18 10*3/uL Normal 0.00-0.50 [facility] Comment on above: Performed By: #### L [id number] ####[facility] (BEAKER)[address] [place] [address] Eosinophils/100 WBC (Bld) 2.1 % Normal 0.0-6.0 [facility] Comment on above: Performed By: #### L [id number] ####[facility] (BEAKER)[address] [place] [address] Erythrocyte distribution width (RBC) [Ratio] 14.9 % Normal 11.5-15.0 [facility] Comment on above: Performed By: #### L [id number] ####[facility] (BEAKER)[address] [place] [address] ERYTHROCYTE MEAN CORPUSCULAR HEMOGLOBIN CONCENTRATION (G/DL) BY AUTOMATED 32.9 g/dL Normal 32.0-35.0 [facility] Comment on above: Performed By: #### L [id number] ####[facility] (BEAKER)[address] [place] [address] Hematocrit (Bld) [Volume fraction] 35.9 % Low 36.0-48.0 [facility] Comment on above: Performed By: #### L [id number] ####[facility] (BEAKER)[address] [place] [address] Hemoglobin (Bld) [Mass/Vol] 11.8 g/dL Low 12.0-15.0 [facility] Comment on above: Performed By: #### L [id number] ####[facility] (BEAKER)[address] [place] [address] Immature granulocytes (Bld) [#/Vol] 0.03 10*3/uL Normal 0.00-0.20 [facility] Comment on above: Performed By: #### L [id number] ####[facility] (BEAKER)[address] [place] [address] Immature granulocytes/100 WBC (Bld) 0.3 % Normal 0.0-1.0 [facility] Comment on above: Performed By: #### L [id number] ####[facility] (BEAKER)[address] [place] [address] Lymphocytes (Bld) [#/Vol] 2.02 10*3/uL Normal 1.20-4.00 [facility] Comment on above: Performed By: #### L [id number] ####[facility] (BEAKER)[address] [place] [address] Lymphocytes/100 WBC (Bld) 23.5 % Normal 20.0-45.0 [facility] Comment on above: Performed By: #### L [id number] ####[facility] (BEAKER)[address] [place] [address] MCH (RBC) [Entitic mass] 27.2 pg Normal 27.0-33.0 [facility] Comment on above: Performed By: #### L [id number] ####[facility] (BEAKER)[address] [place] [address] MCV (RBC) [Entitic vol] 82.7 fL Normal 82.0-98.0 [facility] Comment on above: Performed By: #### L [id number] ####[facility] (BEAKER)[address] [place] [address] Monocytes (Bld) [#/Vol] 0.56 10*3/uL Normal 0.10-1.00 [facility] Comment on above: Performed By: #### L [id number] ####[facility] (BEAKER)[address] [place] [address] Monocytes/100 WBC (Bld) 6.5 % Normal 5.0-12.0 [facility] Comment on above: Performed By: #### L [id number] ####[facility] ([facility])[address] [place] [address] Neutrophils (Bld) [#/Vol] 5.74 10*3/uL Normal 1.60-7.60 [facility] Comment on above: Performed By: #### L [id number] ####[facility] ([facility])[address] [place] [address] Neutrophils/100 WBC (Bld) 67.0 % Normal 40.0-72.0 [facility] Comment on above: Performed By: #### L [id number] ####[facility] ([facility])[address] [place] [address] NRBC (PER 100 WBCS) BY AUTOMATED COUNT 0.0 % Normal 0 [facility] Comment on above: Performed By: #### L [id number] ####[facility] ([facility])[address] [place] [address] PLATELETS (10*3/UL) IN BLOOD AUTOMATED COUNT 233 10*3/uL Normal 150-400 [facility] Comment on above: Performed By: #### L [id number] ####[facility] ([facility])[address] [address] RBC (Bld) [#/Vol] 4.34 10*6/uL Normal 3.80-5.00 [facility] Comment on above: Performed By: #### L [id number] ####[facility] ([facility])[address] [address] WBC (Bld) [#/Vol] 8.58 10*3/uL Normal 4.00-10.60 [facility] Comment on above: Performed By: #### L [id number] ####[facility] ([facility] [place] [address] COMPREHENSIVE METABOLIC PANE Alec 06-29-2024 Albumin [Mass/Vol] 3.8 g/dL Normal 3.5-5.7 [facility] Comment on above: Performed By: #### L [id number] #### [facility] ([facility]) [address] [place] [address] ALP [Catalytic activity/Vol] 64 U/L Normal 34-104 [facility] Comment on above: Performed By: #### L [id number] #### [facility] (BEAKER) [address] [place] [address] ALT [Catalytic activity/Vol] 35 U/L Normal 7-52 [facility] Comment on above: Performed By: #### L [id number] #### [facility] ([facility]ER) [address] [place] [address] Anion gap [Moles/Vol] 12 mmol/L Normal 7-20 [facility] Comment on above: Performed By: #### L [id number] #### [facility] (BE[facility]ER) [address] [place] [address] AST [Catalytic activity/Vol] 21 U/L Normal 13-39 [facility] Comment on above: Performed By: #### L [id number] #### [facility] (BEAKER) [address] [place] [address] Bilirubin [Mass/Vol] 0.4 mg/dL Normal 0.3-1.0 [facility] Comment on above: Performed By: #### L [id number] #### [facility] ([facility]) [address] [place] [address] Calcium [Mass/Vol] 8.5 mg/dL Low 8.6-10.3 [facility] Comment on above: Performed By: #### L [id number] #### [facility] ([facility]) [address] [place] [address] Chloride [Moles/Vol] 112 mmol/L High 98-107 [facility] Comment on above: Performed By: #### L [id number] #### [facility] ([facility]) [address] [place] [address] CO2 [Moles/Vol] 22 mmol/L Normal 21-31 [facility] Comment on above: Performed By: #### L [id number] #### [facility] ([facility]) [address] [place] [address] Creatinine [Mass/Vol] 0.92 mg/dL Normal 0.60-1.20 [facility] Comment on above: Performed By: #### L [id number] #### [facility] ([facility]) [address] [place] [address] GLOMERULAR FILTRATION RATE ML/MIN/1.73 SQ M.PREDICTED 71.3 mL/min/1.73m*2 Normal >60.0 [facility] Comment on above: Result Comment: [facility]???s estimated glomerular filtration rate (eGFR) will [...] individuals. Performed By: #### L [id number] #### [facility] ([facility]) [address] [place] [address] Glucose [Mass/Vol] 108 mg/dL High 70-100 [facility] Comment on above: Performed By: #### L [id number] #### [facility] ([facility]) [address] [place] [address] Potassium [Moles/Vol] 3.7 mmol/L Normal 3.5-5.1 [facility] Comment on above: Performed By: #### L [id number] #### [facility] ([facility]) [address] [place] [address] Protein [Mass/Vol] 6.1 g/dL Normal 6.0-8.3 [facility] Comment on above: Performed By: #### L [id number] #### [facility] ([facility]) [address] [place] [address] Sodium [Moles/Vol] 142 mmol/L Normal 136-145 [facility] Comment on above: Performed By: #### L [id number] #### [facility] ([facility]) [address] [address] Urea nitrogen [Mass/Vol] 11 mg/dL Normal 7-25 [facility] Comment on above: Performed By: #### L [id number] #### [facility] ([facility]) [address] [place] [address] UREA NITROGEN/CREATININE (MASS RATIO) IN SER/PLAS 12.0 Normal [facility] Comment on above: Performed By: #### L [id number] #### [facility] ([facility]) [address] [place] [address] MAGNESIUMon 06-29-2024 Magnesium [Mass/Vol] 1.7 mg/dL Low 1.9-2.7 [facility] Comment on above: Performed By: #### L [id number] ####[facility] ([facility])[address] [place] [address] PHOSPHORUSon 06-29-2024 Magnesium [Mass/Vol] 2.9 mg/dL Normal 2.5-5.0 [facility] Comment on above: Performed By: #### L [id number] #### [facility] ([facility]) [address] [place] [address] PROTIME-INRon 06-29-2024 INR IN PPP BY COAGULATION ASSAY 0.99 Normal 0.90-1.10 [facility] Comment on above: Result Comment: ACCC [...] RANGE. CHEST 1995;108:231S-246S. Performed By: #### L [id number] #### [facility] ([facility]) [address] [place] [address] PROTHROMBIN TIME (PT) IN PPP BY COAGULATION ASSAY 13.1 Seconds Normal 12.3-14.8 [facility] Comment on above: Performed By: #### L [id number] #### [facility] ([facility]) [address] [place] [address] TROPONIN Ion 06-29-2024 Troponin I.cardiac [Mass/Vol] 0.10 ng/mL High 0.00-0.04 [facility] Comment on above: Performed By: #### L [id number] #### [facility] ([facility]) [address] [place] [address] Office Visiton 06-21-2024 Follow-up visit [id number] Aby Madrigal 1965 F Date Provider Department Center 06/21/2024 GOMEZ KENDALL RIAZ [place] Family History Problem Relation Age of Onset Lung cancer Mother No Known Problems Father Lung cancer Sister Family Status - Relation Status Age at Mother Father Sister Level of Service:02342 NE OFFICE/OUTPATIENT ESTABLISHED MOD MDM 30 MIN Normal [facility] Office Visiton 05-26-2024 Follow-up visit [id number] Sanjana Madrigalty S 1965 F Date Provider Department Center 05/26/2024 BIJAN LAWLER RIAZ [place] Family History Problem Relation Age of Onset Lung cancer Mother No Known Problems Father Lung cancer Sister Family Status - Relation Status Age at Mother Father Sister Level of Service:74906 NE OFFICE/OUTPATIENT NEW MODERATE MDM 45 MINUTES Normal [facility] Outside Colonoscopyon 2022 Outside Colonoscopy [id number] 0CD:127 Normal [facility] Reminderson 11-27-2022 Reminders - From: Na Hayes LPN To: GSN - Clinical; Sent: 11/27/2022 12:46:10 EST Show up: 10/25/2032 07:00:00 EST Subject: colonoscopy recall Due Date/Time: 11/25/2032 07:00:00 EST Reminder/Recall Patient is due for screening colonoscopy 11/25/2032. Normal [facility] Lab Reportson 11-24-2022 Lab Reports [id number] 0CD:127 Normal [facility] Covid-19 PCR ([facility])on 10-24 SARS-CoV-2 (COVID-19) RNA BECK+probe Ql (Unsp spec) Not detected Normal NOT DETECTED [facility] Comment on above: Result Comment: This test is not yet approved or cleared by the [place] FDA. When there are no FDA-approved or cleared tests available, and other criteria are met, FDA can make tests available under an emergency access mechanism called an Emergency Use Authorization (EUA). The EUA for this test is supported by the [place] of Health and Human Service's (HHS's) declaration [...] consistent with SARS-CoV-2. Performed By: #### [facility] #### [facility] [address] [place] [address] Dr. Rich Cutler Consent for Procedure/Surger yon 10-07-2022 Consent for Procedure/Surgery [id number] 0CD:127 Normal [facility] Ambulatory Visit Summaryon 1 12-06-2021 Ambulatory [...] Allergic conjunctivitis Anticoagulated Kidney stones Normal [facility] VC VENOUS REFLUX NINO LMTon 1 12-02-2021 VC VENOUS REFLUX NINO LMT Patient: ABY MADRIGAL Exam Date: 10/02/2022 : 1965 Gender:F Ordering : DR KENDRA MORAN . Admission #: [id number] Family : Order #: [id number] CLICK HERE TO VIEW EXAM RADIOLOGY REPORT [...] chronic thrombus visualized Compressibility: Normal Flow: Normal Laboratory Chief: Dist/med calf 3.3mm with 0s reflux. Tech Note: Incompetent SFJ and GSV. Patent varicose vein mid/med calf 2.9mm with 0s reflux. Patent varicose vein prox/post calf 3.8mm with 0s reflux. Patent varicose vein dist/med thigh 3.8mm with 2.0s reflux. CONCLUSION: 1. Mild right and xgvp-gt-tjfysebs left great saphenous vein venous insufficiency with dilatation 2. Left saphenous popliteal junction reflux 3. Mild left anterior accessory saphenous vein venous insufficiency without dilatation 4. Small bilateral incompetent varicose veins Dictated by: Adelia Lezama MD on 10/02/2022 at 13:36 Approved by: Adelia Lezama MD on 10/02/2022 at 13:52 Normal [facility] ECHOCARDIO M/2D COMPLETEon 1 11-30-2021 ECHOCARDIO M/2D COMPLETE Patient: ABY MADRIGAL Exam Date: 09/30/2022 : 1965 Gender:F Ordering : DR KENDRA MORAN . Admission #: [id number] Family : Order #: [id number] CLICK HERE TO VIEW EXAM ECHOCARDIOGRAM REPORT [...] M.D. on 09/30/2022 at 18:37 Normal [facility] BNPon 09-24-2022 Natriuretic peptide B (Bld) [Mass/Vol] 501.0 pg/mL Normal <=900.0 [facility] Comment on above: Performed By: #### C VDTB #### [facility] [address] [place] [address] Dr. Rich Cutler CBC AUTO DIFFon 09-24-2022 BASO # 0.1 103/ul Normal 0.0-0.1 [facility] Comment on above: Performed By: #### C VDTB #### [facility] [address] [place] [address] Dr. Rich Cutler Basophils/100 WBC (Bld) 0.8 % Normal 0.2-2.0 [facility] Comment on above: Performed By: #### C VDTBH #### [facility] [address] [place] [address] Dr. Rich Cutler EO # 0.3 103/ul Normal 0.0-0.7 [facility] Comment on above: Performed By: #### C VDTBH #### [facility] [address] [place] [address] Dr. Rich Cutler Eosinophils/100 WBC (Bld) 3.4 % Normal 0.9-7.0 [facility] Comment on above: Performed By: #### C VDTBH #### [facility] [address] [place] [address] Dr. Rich Cutler Erythrocyte distribution width (RBC) [Ratio] 13.3 % Normal 11.0-15.0 [facility] Comment on above: Performed By: #### C VDTBH #### [facility] [address] [place] [address] Dr. Rich Cutler Hematocrit (Bld) [Volume fraction] 40.5 % Normal 36.0-48.0 [facility] Comment on above: Performed By: #### C VDTBH #### [facility] [address] [place] [address] Dr. Rich Cutler Hemoglobin (Bld) [Mass/Vol] 13.1 g/dL Normal 12.0-16.0 [facility] Comment on above: Performed By: #### C VDTBH #### [facility] [address] [place] [address] Dr. Rich Cutler IG # 0.02 10e3/ul Normal 0.00-0.03 [facility] Comment on above: Performed By: #### C VDTBH #### [facility] [address] [place] [address] Dr. Rich Cutler IG % 0.3 % Normal 0.0-0.5 [facility] Comment on above: Performed By: #### C VDTBH #### [facility] [address] [place] [address] Dr. Rich Cutler LYMPH # 2.7 103/ul Normal 1.2-3.8 [facility] Comment on above: Performed By: #### C VDTBH #### [facility] [address] [place] [address] Dr. Rich Cutler Lymphocytes/100 WBC (Bld) 35.4 % Normal 20.5-60.0 [facility] Comment on above: Performed By: #### C VDTBH #### [facility] [address] [place] [address] Dr. Rich Cutler MANUAL DIFF REQ NO Normal [facility] Comment on above: Performed By: #### C VDTBH #### [facility] [address] [place] [address] Dr. Rich Cutler MCH (RBC) [Entitic mass] 28.2 pg Normal 26.7-34.0 [facility] Comment on above: Performed By: #### C VDTBH #### [facility] [address] [place] [address] Dr. Rich Cutler MCHC (RBC) [Mass/Vol] 32.3 g/dL Normal 29.9-35.2 [facility] Comment on above: Performed By: #### C VDTBH #### [facility] [address] [place] [address] Dr. Rich Cutler MCV (RBC) [Entitic vol] 87.3 fL Normal 81.0-99.0 [facility] Comment on above: Performed By: #### C VDTBH #### [facility] [address] [place] [address] Dr. Rich Cutler MONO # 0.5 103/ul Normal 0.3-0.8 [facility] Comment on above: Performed By: #### C VDTBH #### [facility] [address] [place] [address] Dr. Rich Cutler Monocytes/100 WBC (Bld) 6.5 % Normal 1.7-12.0 [facility] Comment on above: Performed By: #### C VDTBH #### [facility] [address] [place] [address] Dr. Rich Cutler NEUT # 4.1 103/ul Normal 1.4-6.5 [facility] Comment on above: Performed By: #### C VDTBH #### [facility] [address] [place] [address] Dr. Rich Cutler Neutrophils/100 WBC (Bld) 53.6 % Normal 43.0-75.0 [facility] Comment on above: Performed By: #### C VDTBH #### [facility] [address] [place] [address] Dr. Rich Cutler Platelet mean volume (Bld) [Entitic vol] 10.3 fL Normal 9.5-13.5 [facility] Comment on above: Performed By: #### C VDTBH #### [facility] [address] [place] [address] Dr. Rich Cutler PLT 283 103/ul Normal 150-450 [facility] Comment on above: Performed By: #### C VDTBH #### [facility] [address] [place] [address] Dr. Rich Cutler RBC 4.64 106/ul Normal 4.20-5.40 [facility] Comment on above: Performed By: #### C VDTBH #### [facility] [address] [place] [address] Dr. Rich Cutler WBC 7.6 103/ul Normal 4.0-11.0 [facility] Comment on above: Performed By: #### C VDTBH #### [facility] [address] [place] [address] Dr. Rich Cutler INSULINon 09-24-2022 Insulin 15.1 uIU/mL Normal 2.6-24.9 [facility] Comment on above: Performed By: #### C VDTBH #### [facility] [address] [place] [address] Dr. Rich Cutler PROF 14(COMP METB)on 022 Albumin [Mass/Vol] 3.5 g/dL Normal 3.4-5.0 [facility] Comment on above: Performed By: #### C VDTBH #### [facility] [address] [place] [address] Dr. Rich Cutler Albumin/Globulin [Mass ratio] 1.0 {ratio} Normal [facility] Comment on above: Performed By: #### C VDTBH #### [facility] [address] [place] [address] Dr. Rich Cutler ALP [Catalytic activity/Vol] 91 U/L Normal 46-116 [facility] Comment on above: Performed By: #### C VDTBH #### [facility] [address] [place] [address] Dr. Rich Cutler ALT [Catalytic activity/Vol] 47 U/L Normal 14-59 [facility] Comment on above: Performed By: #### C VDTBH #### [facility] [address] [address] [address] Rich Cutler Anion gap [Moles/Vol] 11.7 mmol/L Normal [facility] Comment on above: Performed By: #### C VDTBH #### [facility] [address] [address] [address] Rich Cutler AST [Catalytic activity/Vol] 24 U/L Normal 15-37 [facility] Comment on above: Performed By: #### C VDTBH #### [facility] [address] [address] [address] Rich Cutler Bilirubin [Mass/Vol] 0.2 mg/dL Normal 0.2-1.0 [facility] Comment on above: Performed By: #### C VDTBH #### [facility] [address] [place] [address] Dr. Rich Cutler Calcium [Mass/Vol] 8.9 mg/dL Normal 8.5-10.1 [facility] Comment on above: Performed By: #### C VDTBH #### [facility] [address] [place] [address] Dr. Rich Cutler Chloride [Moles/Vol] 105 mmol/L Normal 98-107 [facility] Comment on above: Performed By: #### C VDTBH #### [facility] [address] [place] [address] Dr. Rich Cutler CO2 [Moles/Vol] 28.1 mmol/L Normal 21.0-32.0 [facility] Comment on above: Performed By: #### C VDTBH #### [facility] [address] [place] [address] Dr. Rich Cutler Creatinine [Mass/Vol] 1.13 mg/dL Critically high 0.55-1.02 [facility] Comment on above: Performed By: #### C VDTBH #### [facility] [address] [place] [address] Dr. Rich Cutler EGFR-AF ERITREAN 60 mL/min/1.73m2 Normal >=60 [facility] Comment on above: Performed By: #### C VDTBH #### [facility] [address] [place] [address] Dr. Rich Cutler EGFR-NON AF ERITREAN 49 mL/min/1.73m2 Critically low >=60 [facility] Comment on above: Performed By: #### C VDTBH #### [facility] [address] [place] [address] Dr. Rich Cutler Globulin (S) [Mass/Vol] 3.5 g/dL Normal [facility] Comment on above: Performed By: #### C VDTBH #### [facility] [address] [place] [address] Dr. Rich Cutler Glucose [Mass/Vol] 119 mg/dL Critically high 74-106 [facility] Comment on above: Performed By: #### C VDTBH #### [facility] [address] [place] [address] Dr. Rich Cutler Potassium [Moles/Vol] 3.8 mmol/L Normal 3.5-5.1 [facility] Comment on above: Performed By: #### C VDTBH #### [facility] [address] [place] [address] Dr. Rich Cutler Protein [Mass/Vol] 7.0 g/dL Normal 6.4-8.2 [facility] Comment on above: Performed By: #### C VDTBH #### [facility] [address] [place] [address] Dr. Rich Cutler Sodium [Moles/Vol] 141 mmol/L Normal 136-145 [facility] Comment on above: Performed By: #### C VDTBH #### [facility] [address] [place] [address] Dr. Rich Cutler Urea nitrogen [Mass/Vol] 16.0 mg/dL Normal 7.0-18.0 [facility] Comment on above: Performed By: #### C VDTBH #### [facility] [address] [place] [address] Dr. Rich Cutler Urea nitrogen/Creatinine [Mass ratio] 14.2 mg/mg Normal [facility] Comment on above: Performed By: #### C VDTBH #### [facility] [address] [place] [address] Dr. Rich Cutler TROPONIN, HIGH SENSITIVITYon 09-24-2022 HSTROP 10.6 pg/mL Normal 4.0-51.3 [facility] Comment on above: Result Comment: CUT- OFF POINTS HAVE BEEN ESTABLISHED BASED ON THE FOURTH UNIVERSAL DEFINITIONS OF MYOCARDIAL INFARCTION. THE UPPER REFERENCE LIMIT (URL) OF TROPONIN, DEFINED THE 99TH PERCENTILE OF cTnI DISTRIBUTION IN A REFERENCE POPULATION, HAS BEEN CONFIRMED THE DECISION THRESHOLD FOR CO DIAGNOSIS. Performed By: #### C VDTBH #### [facility] [address] [place] [address] Dr. Rich Cutler XR CHEST 1 Von [...] UMM HUMPHRIES Date: 2022-09-24 04:08 Normal [facility] CBC AUTO DIFFon 09-23-2022 BASO # 0.1 103/ul Normal 0.0-0.1 [facility] Comment on above: Performed By: #### C BC #### [facility] [address] [place] [address] Dr. Rich Cutler Basophils/100 WBC (Bld) 0.8 % Normal 0.2-2.0 [facility] Comment on above: Performed By: #### C BC #### [facility] [address] [place] [address] Dr. Rich Cutler EO # 0.2 103/ul Normal 0.0-0.7 [facility] Comment on above: Performed By: #### C BC #### [facility] [address] [place] [address] Dr. Rich Cutler Eosinophils/100 WBC (Bld) 3.5 % Normal 0.9-7.0 [facility] Comment on above: Performed By: #### C BC #### [facility] [address] [place] [address] Dr. Rich Cutler Erythrocyte distribution width (RBC) [Ratio] 13.4 % Normal 11.0-15.0 [facility] Comment on above: Performed By: #### C BC #### [facility] [address] [place] [address] Dr. Rich Cutler Hematocrit (Bld) [Volume fraction] 42.3 % Normal 36.0-48.0 [facility] Comment on above: Performed By: #### C BC #### [facility] [address] [place] [address] Dr. Rich Cutler Hemoglobin (Bld) [Mass/Vol] 13.4 g/dL Normal 12.0-16.0 [facility] Comment on above: Performed By: #### C BC #### [facility] [address] [place] [address] Dr. Rich Cutler IG # 0.03 10e3/ul Normal 0.00-0.03 [facility] Comment on above: Performed By: #### C BC #### [facility] [address] [place] [address] Dr. Rich Cutler IG % 0.5 % Normal 0.0-0.5 [facility] Comment on above: Performed By: #### C BC #### [facility] [address] [place] [address] Dr. Rich Cutler LYMPH # 2.9 103/ul Normal 1.2-3.8 [facility] Comment on above: Performed By: #### C BC #### [facility] [address] [place] [address] Dr. Rich Cutler Lymphocytes/100 WBC (Bld) 44.0 % Normal 20.5-60.0 [facility] Comment on above: Performed By: #### C BC #### [facility] [address] [place] [address] Dr. Rich Cutler MANUAL DIFF REQ NO Normal [facility] Comment on above: Performed By: #### C BC #### [facility] [address] [place] [address] Dr. Rich Cutler MCH (RBC) [Entitic mass] 28.4 pg Normal 26.7-34.0 [facility] Comment on above: Performed By: #### C BC #### [facility] [address] [place] [address] Dr. Rich Cutler MCHC (RBC) [Mass/Vol] 31.7 g/dL Normal 29.9-35.2 [facility] Comment on above: Performed By: #### C BC #### [facility] [address] [place] [address] Dr. Rich Cutler MCV (RBC) [Entitic vol] 89.6 fL Normal 81.0-99.0 [facility] Comment on above: Performed By: #### C BC #### [facility] [address] [place] [address] Dr. Rich Cutler MONO # 0.4 103/ul Normal 0.3-0.8 [facility] Comment on above: Performed By: #### C BC #### [facility] [address] [place] [address] Dr. Rich Cutler Monocytes/100 WBC (Bld) 6.6 % Normal 1.7-12.0 [facility] Comment on above: Performed By: #### C BC #### [facility] [address] [place] [address] Dr. Rich Cutler NEUT # 2.9 103/ul Normal 1.4-6.5 [facility] Comment on above: Performed By: #### C BC #### [facility] [address] [place] [address] Dr. Rich Cutler Neutrophils/100 WBC (Bld) 44.6 % Normal 43.0-75.0 [facility] Comment on above: Performed By: #### C BC #### [facility] [address] [address] [address] Rich Cutler Platelet mean volume (Bld) [Entitic vol] 11.0 fL Normal 9.5-13.5 [facility] Comment on above: Performed By: #### C BC #### [facility] [address] [place] [address] Dr. Rich Cutler PLT 272 103/ul Normal 150-450 [facility] Comment on above: Performed By: #### C BC #### [facility] [address] [address] [address] Rich Cutler RBC 4.72 106/ul Normal 4.20-5.40 [facility] Comment on above: Performed By: #### C BC #### [facility] [address] [place] [address] Dr. Rich Cutler WBC 6.5 103/ul Normal 4.0-11.0 [facility] Comment on above: Performed By: #### C BC #### [facility] [address] [place] [address] Dr. Rich Cutler FREE THYROXINE INDEX T7on FTI 2.16 Normal 1.30-4.50 [facility] Comment on above: Performed By: #### L IPID, TSH, T7, CMP #### [facility] [address] [place] [address] Dr. Rich Cutler T3U 30.0 % Normal 30.0-39.0 [facility] Comment on above: Performed By: #### L IPID, TSH, T7, CMP #### [facility] [address] [place] [address] Dr. Rich Cutler T4 [Mass/Vol] 7.20 ug/dL Normal 4.80-13.90 [facility] Comment on above: Performed By: #### L IPID, TSH, T7, CMP #### [facility] [address] [place] [address] Dr. Rich Cutler GLYCOHEMOGLOBIN A1Con 2021 ADA RECOMMENDATION SEE BELOW Normal [facility] Comment on above: Result Comment: ADA RECOMMENDED LIMIT 4.0 - 6.0 ADA THERAPEUTIC TARGET < 7.0 ACTION SUGGESTED > 7.0 Performed By: #### A 1C #### [facility] [address] [address] [address] Rich Cutler Glucose [Mass/Vol] 128 mg/dL Normal [facility] Comment on above: Performed By: #### A 1C #### [facility] [address] [address] [address] Rich Cutler HbA1c (Bld) [Mass fraction] 6.1 % Normal 4.5-6.2 [facility] Comment on above: Performed By: #### A 1C #### [facility] [address] [place] [address] Dr. Rich Cutler IRONon 09-23-2022 Iron [Mass/Vol] 64.0 ug/dL Normal 50.0-170.0 [facility] Comment on above: Performed By: #### C VDTB #### [facility] [address] [place] [address] Dr. Rich Cutler LIPID PROFILEon 09-23-2022 CHOL-HDL RATIO NORM SEE BELOW Normal [facility] Comment on above: Result Comment: 3.3 - 4.4 LOW RISK 4.4 - 7.1 AVERAGE RISK 7.1 - 11.0 MODERATE RISK >11.0 HIGH RISK Performed By: #### L IPID, TSH, T7, CMP #### [facility] [address] [place] [address] Dr. Rich Cutler Cholesterol [Mass/Vol] 237 mg/dL Critically high <=200 [facility] Comment on above: Performed By: #### L IPID, TSH, T7, CMP #### [facility] [address] [address] [address] Rich Cutler Cholesterol in HDL [Mass/Vol] 44 mg/dL Normal 40-60 [facility] Comment on above: Performed By: #### L IPID, TSH, T7, CMP #### [facility] [address] [address] [address] Rich Cutler Cholesterol in LDL [Mass/Vol] 172.2 mg/dL Normal [facility] Comment on above: Performed By: #### L IPID, TSH, T7, CMP #### [facility] [address] [address] [address] Rich Cutler Cholesterol.total/C holesterol in HDL [Mass ratio] 5.4 {ratio} Normal [facility] Comment on above: Performed By: #### L IPID, TSH, T7, CMP #### [facility] [address] [address] [address] Rich Cutler HDL NORMAL > or = 60 mg/dl - LO W CARDIOVASCULAR RISK <40 mg/dl - HIGH CARDIOVASCULAR RISK Normal [facility] Comment on above: Performed By: #### L IPID, TSH, T7, CMP #### [facility] [address] [address] [address] Rich Cutlre LDL CALC NORMAL SEE BELOW Normal [facility] Comment on above: Result Comment: <100 mg/dl OPTIMAL 100 - 129 mg/dl NEAR OR ABOVE OPTIMAL 130 - 159 mg/dl BORDERLINE HIGH 160 - 189 mg/dl HIGH >190 mg/dl VERY HIGH Performed By: #### L IPID, TSH, T7, CMP #### [facility] [address] [address] [address] Rich Cutler Triglyceride [Mass/Vol] 104 mg/dL Normal <=150 [facility] Comment on above: Performed By: #### L IPID, TSH, T7, CMP #### [facility] [address] [address] [address] Rich Cutler VLDL CALC 20.8 mg/dL Normal [facility] Comment on above: Performed By: #### L IPID, TSH, T7, CMP #### [facility] [address] [address] [address] Rich Cutler PROF 14(COMP METB)on 022 Albumin [Mass/Vol] 3.5 g/dL Normal 3.4-5.0 [facility] Comment on above: Performed By: #### L IPID, TSH, T7, CMP #### [facility] [address] [address] [address] Rich Cutler Albumin/Globulin [Mass ratio] 0.9 {ratio} Normal [facility] Comment on above: Performed By: #### L IPID, TSH, T7, CMP #### [facility] [address] [place] [address] Dr. Rich Cutler ALP [Catalytic activity/Vol] 93 U/L Normal 46-116 [facility] Comment on above: Performed By: #### L IPID, TSH, T7, CMP #### [facility] [address] [place] [address] Dr. Rich Cutler ALT [Catalytic activity/Vol] 44 U/L Normal 14-59 [facility] Comment on above: Performed By: #### L IPID, TSH, T7, CMP #### [facility] [address] [place] [address] Dr. Rich Cutler Anion gap [Moles/Vol] 8.5 mmol/L Normal [facility] Comment on above: Performed By: #### L IPID, TSH, T7, CMP #### [facility] [address] [place] [address] Dr. Rich Cutler AST [Catalytic activity/Vol] 26 U/L Normal 15-37 [facility] Comment on above: Performed By: #### L IPID, TSH, T7, CMP #### [facility] [address] [place] [address] Dr. Rich Cutler Bilirubin [Mass/Vol] 0.3 mg/dL Normal 0.2-1.0 [facility] Comment on above: Performed By: #### L IPID, TSH, T7, CMP #### [facility] [address] [place] [address] Dr. Rich Cutler Calcium [Mass/Vol] 9.0 mg/dL Normal 8.5-10.1 [facility] Comment on above: Performed By: #### L IPID, TSH, T7, CMP #### [facility] [address] [place] [address] Dr. Rich Cutler Chloride [Moles/Vol] 106 mmol/L Normal 98-107 [facility] Comment on above: Performed By: #### L IPID, TSH, T7, CMP #### [facility] [address] [address] [address] Rich Cutler CO2 [Moles/Vol] 31.0 mmol/L Normal 21.0-32.0 [facility] Comment on above: Performed By: #### L IPID, TSH, T7, CMP #### [facility] [address] [address] [address] Rich Cutler Creatinine [Mass/Vol] 1.11 mg/dL Critically high 0.55-1.02 [facility] Comment on above: Performed By: #### L IPID, TSH, T7, CMP #### [facility] [address] [address] [address] Rich Cutler EGFR-AF ERITREAN >60 Normal >=60 [facility] Comment on above: Performed By: #### L IPID, TSH, T7, CMP #### [facility] [address] [place] [address] Dr. Rich Cutler EGFR-NON AF ERITREAN 50 mL/min/1.73m2 Critically low >=60 [facility] Comment on above: Performed By: #### L IPID, TSH, T7, CMP #### [facility] [address] [address] [address] Rich Cutler Globulin (S) [Mass/Vol] 3.7 g/dL Normal [facility] Comment on above: Performed By: #### L IPID, TSH, T7, CMP #### [facility] [address] [address] [address] Rich Cutler Glucose [Mass/Vol] 121 mg/dL Critically high 74-106 [facility] Comment on above: Performed By: #### L IPID, TSH, T7, CMP #### [facility] [address] [address] [address] Rich Cutler Potassium [Moles/Vol] 4.5 mmol/L Normal 3.5-5.1 [facility] Comment on above: Performed By: #### L IPID, TSH, T7, CMP #### [facility] [address] [address] [address] Rich Cutler Protein [Mass/Vol] 7.2 g/dL Normal 6.4-8.2 [facility] Comment on above: Performed By: #### L IPID, TSH, T7, CMP #### [facility] [address] [address] [address] Rich Cutler Sodium [Moles/Vol] 141 mmol/L Normal 136-145 [facility] Comment on above: Performed By: #### L IPID, TSH, T7, CMP #### [facility] [address] [address] [address] Rich Cutler Urea nitrogen [Mass/Vol] 16.0 mg/dL Normal 7.0-18.0 [facility] Comment on above: Performed By: #### L IPID, TSH, T7, CMP #### [facility] [address] [place] [address] Dr. Rich Cutler Urea nitrogen/Creatinine [Mass ratio] 14.4 mg/mg Normal [facility] Comment on above: Performed By: #### L IPID, TSH, T7, CMP #### [facility] [address] [address] [address] Rich Cutler TSHon 09-23-2022 TSH 3.915 uIU/mL Critically high 0.358-3.740 [facility] Comment on above: Performed By: #### L IPID, TSH, T7, CMP #### [facility] [address] [place] [address] Dr. Rich Cutler Physician Referralon 022 Physician Referral [phone] 00 [id number] Normal [facility] Lipid Panelon 10-07-2021 Cholesterol [Mass/Vol] 205 mg/dL High 140-[address] [facility] Comment on above: Result Comment: Chol less than 200 mg/dl low risk Chol 201-239 mg/dl borderline risk Chol 240 mg/dl and greater high risk Performed By: #### L IPID, [id number], TSH3 wRFLX #### [facility] [address] Cholesterol in HDL [Mass/Vol] 25 mg/dL Low 35-[address] [facility] Comment on above: Result Comment: HDL CHOL ATP-III CLASSIFICATION Cardiovascular Risk HDL > or equal to 60 mg/dL LOW HDL < 40 mg/dL HIGH Performed By: #### L IPID, [id number], TSH3 wRFLX #### [facility] [address] Cholesterol.total/C holesterol in HDL [Mass ratio] 8.2 {ratio} Normal <5.[address] [facility] Comment on above: Performed By: #### L IPID, [id number], TSH3 wRFLX #### [facility] [address] LDL Cholesterol,Calcula coby 160 mg/dL High 0-[address] [facility] Comment on above: Result Comment: LDL ATP III CLASSIFICATION LDL less than 100 mg/dL Optimal LDL 100-129 mg/dL Near or above optimal LDL 130-159 mg/dL Borderline high LDL 160-189 mg/dL High LDL greater than 189 mg/dL Very high Performed By: #### L IPID, [id number], TSH3 wRFLX #### [facility] [address] Triglyceride w/Reflex 100 mg/dL Normal 35-[address] [facility] Comment on above: Result Comment: TRIG ATP III CLASSIFICATION TRIG less than 150 mg/dL Normal TRIG 150-199 mg/dL Borderline high TRIG 200-500 mg/dL High TRIG greater than 500 mg/dL Very high Standard traceable to the Center for Disease Conrtrol and Prevention (CDC) test method. Performed By: #### L IPID, [id number], TSH3 wRFLX #### [facility] [address] [id number] [facility] VLDL CHOLESTEROL 20 mg/dL Normal [facility] Comment on above: Performed By: #### L IPID, [id number], TSH3 wRFLX #### [facility] [address] [id number] [facility] Thyroid Stim Hormone w/Rflxo n 10-07-2021 Thyroid Stim Hormone w/Rflx 3.27 u[iU]/mL Normal 0.45-5.[address] [facility] Comment on above: Performed By: #### L IPID, [id number], TSH3 wRFLX #### [facility] [address] [id number] [facility] Vitamin D 25 Hydroxy Totalon 10-07-2021 Vitamin D 25 Hydroxy Total 26.5 ng/mL Low 30-[address] [facility] Comment on above: Result Comment: JACKELINE MIN D STATUS 25(OH)VITAMIN D RANGE (ng/mL) Deficient <20 Insufficient 20 to <30 Sufficient 30 to 100 Reference: Lanny MF,Gino NC, Dyan VALENZUELA, et al. Evaluation,treatment, and prevention of vitamin D deficiency; an Endocrine Society clinical practice guideline. JCEM. 2010; 96(7):1911-30. PERFORMED BY: [place] [address] PATHOLOGIST PRIMARY CARE NURSE SILVESTRE SCHULER M.D. Performed By: #### L IPID, [id number], TSH3 wRFLX #### [address] [id number] [facility] Vital Signs Date Time Vital Sign Value Performing Clinician Deidre gagnon 10-06-2022 15:36-0500 Blood Pressure Location Umm LANDON [facility] [place] 10-06-2022 15:36-0500 Diastolic blood pressure 86 mm[Hg] Umm LANDON [facility] [place] 10-06-2022 15:36-0500 Heart rate 72 /min Umm JACQUESL [facility] [place] 10-06-2022 15:36-0500 Respiratory rate 16 /min Umm JACQUESL [facility] [place] 10-06-2022 15:36-0500 Systolic blood pressure 126 mm[Hg] Umm LANDON [facility] [place] Encounters Encounter Date Encounter Type Care Provider Facility Start: 10-03-2024 End: 10-03-2024 [facility] Start: 09-04-2024 End: 09-04-2024 ambulatory [facility] Start: 08-29-2024 End: 08-29-2024 ambulatory [facility] Start: 08-04-2024 End: 08-04-2024 ambulatory [facility] Start: 07-20-2024 ambulatory [facility] Start: 07-18-2024 ambulatory [facility] Start: 07-18-2024 End: 07-18-2024 Emergency department patient visit HERMINIA SADLERUNDERS [facility] Start: 07-18-2024 End: 07-18-2024 ambulatory [facility] Start: 07-11-2024 Evaluation and manag ement of inpatient [facility] Start: 07-11-2024 Emergency department patient visit FEDERICA ANDERSON [facility] Start: 07-11-2024 End: 07-12-2024 Evaluation and management of inpatient TAO Dugan [facility] Start: 07-10-2024 End: 07-10-2024 ambulatory [facility] Start: 06-30-2024 Evaluation and manag ement of inpatient [facility] Start: 06-30-2024 Evaluation and manag ement of inpatient [facility] Start: 06-29-2024 End: 07-01-2024 Evaluation and management of inpatient KENDRA [facility] Start: 06-21-2024 End: 06-21-2024 ambulatory [facility] Start: 05-26-2024 End: 05-26-2024 ambulatory [facility] Start: 11-26-2022 Encounter for preprocedural laboratory examination DR UMM LANDON . [facility] Start: 11-25-2022 End: 11-26-2022 ambulatory Umm LANDON Facility:CD:[id number] Start: 11-20-2022 End: 11-21-[address] UMM LANDON . Facility:[facility] Start: 11-20-2022 End: 11-21-2022 Encounter for preprocedural laboratory examination DR UMM LANDON . Facility: Start: 10-06-2022 End: 10-07-2022 ambulatory Umm LANDON Facility: [facility] Start: 10-06-2022 End: 10-06-2022 Patient encounter procedure Umm LANDON [facility] Start: 10-02-2022 End: 10-03-[address] KENDRA MORAN . Facility:[facility] Start: 09-30-2022 End: 10-01-[address] KENDRA MORAN . Facility:[facility] Start: 09-28-2022 Encounter for genera l adult medical examination without abnormal findings DR KENDRA MORAN . [facility] Start: 09-24-2022 End: 09-24-[address] [...] DIPESH Catheterization of l eft heart Umm JACQUESL Cholecystectomy Umm NILL Cystoscopic insertio n of ureteric stent Umm LANDON Dilation and curetta ge of uterus Umm JACQUESL Vaginal hysterectomy Umm LANDON Immunizations Immunization Date Immunization Notes Care Provider Fa cility 04-14-2021 SARS-CoV-2 (COVID-19 ) mRNA BNT-162b2 vax Umm NILL [facility] [place] 03-11-2021 SARS-CoV-2 (COVID-19 ) mRNA BNT-162b2 doris LANDON [facility] [place] Payers Date Payer Category Payer Medicaid [id number] 1965 Unknown [id number] 2.16.8 [id number] 1965 Unknown [id number] 2.16.8 [id number] 1965 Unknown [id number] 2.16.84 [id number] 1965 Unknown [id number] 2.16.84 [id number] 1964 Unknown [id number] 2.16.84 [id number] 1965 Unknown [id number] 2.16.84 [id number] 1964 Unknown [id number] 2.16.84 [id number] 1964 Unknown [id number] 2.16.84 [id number] 1964 Unknown [id number] 2.16.84 [id number] 1960 Self-pay [id number] 1960 Unknown [id number] Social History Date Type Detail Facility Start: 10-06-2022 Tobacco smoking status Ex-smoker (fi nding) [facility] [place] Tobacco smoking status Never [facility] [place] Sex Assigned At Female [facility] Functional Status Date Assessment Result Facility 10-06-2022 Functional Status N/A [facility] [place] Clinical Notes 10-11-2022 to 10-03-2024 Note Date & Type Note Facility 10-03-2024 Note REASON FOR VISIT + H PI: Aby Madrigal is a 59 y.o. female with CAD (PCI of LAD Jun 2024), HTN, TIA, panic attacks, SURESH, GERD, T2DM, and dyslipidemia who is being seen today for follow-up reagrding left adrenal mass. Clinical History Summary: - Pertinent Family/Social History: 45+ pack yr smoking hx, quit age 57. Brother and sister with HTN (dx as adults). No known fam hx of early CAD. - dx with HTN age 49, initially controlled with metoprolol - CT A/P Jun 2019 in [place], [place] performed for abd pain, incidentally detected [...] clonidine + spironolactone + losartan + Lasix. After I initially met the patient in the clinic obtained lab work Dex supression test was normal cortisol was 1.7 - Aug 2024: renin undetectable, aldosterone 13. CT Adrenal protocol --> left sided adrenal adenoma 2.8 cm, benign appearance. Interval History: She was seen with cardiology recently, reported no indication for renal artery stenting at this time. She is overall doing better states her blood pressure is more stable on a regimen of 3 medications. She has not had any hospitalizations since I last saw her in the clinic. She reports her BP running 130 - 150 SBP. She is on Coreg 25 mg TID + Imdur 60 mg BID + hydralazine prn if SBP >150 up to 3 times a day. REVIEW OF SYSTEMS Review of Systems Past [...] Types: Cigarettes Quit date: 2021 Years since quittin.8 Smokeless tobacco: Never Substance Use Topics Alcohol [...] mouth with breakfast and with evening meal. (Patient taking differently: Take 25 mg by mouth three times daily.), Disp: 180 tablet, Rfl: 3 clopidogrel (Plavix) 75 mg tablet, Take 1 tablet (75 mg) by mouth in the morning., Disp: 90 tablet, Rfl: 3 hydrALAZINE (Apresoline) 50 mg tablet, Take 50 mg by mouth if needed., Disp: , Rfl: Invokana 100 mg, Take 100 mg by mouth in the morning., Disp: , Rfl: isosorbide mononitrate ER (Imdur) 60 mg 24 hr tablet, Take 1 tablet (60 mg) by mouth in the morning for 98 doses. Do not crush or chew. (Patient taking differently: Take 60 mg by mouth twice a day. Do not crush or chew.), Disp: 30 tablet, Rfl: 3 LORazepam (Ativan) 0.5 mg tablet, Take 1 mg by mouth if needed for anxiety., Disp: , Rfl: metFORMIN (Glucophage) 500 mg tablet, Take 500 mg by mouth with breakfast and with evening meal., Disp: , Rfl: Protonix 40 mg EC tablet, Take 40 mg by mouth if needed each day., Disp: , Rfl: QUEtiapine (SEROquel) 25 mg tablet, Take 100 mg by mouth at bedtime., Disp: , Rfl: rosuvastatin (Crestor) 40 mg tablet, Take 1 tablet (40 mg) by mouth in the morning., Disp: 30 tablet, Rfl: 0 Current Outpatient Medications: aspirin 81 mg EC tablet, Take 81 mg by mouth in the morning., Disp: , Rfl: carvedilol (Coreg) 25 mg tablet, Take 1 tablet (25 mg) by mouth with breakfast and with evening meal. (Patient taking differently: Take 25 mg by (more content not included)... [facility] 09-04-2024 Note [place] Cardiology - [facility] Subjective Aby Madrigal is a 59 y.o. year old female patient being seen for follow up [facility] in Jun 2024 for hypotension. [...] infarction) (CMS/HCC) Hypokalemia Coronary artery disease involving [place] coronary artery of [place] heart without angina pectoris Depression, major, severe [...] Drug use: Never HPI Aby is seen in follow up. She is [...] and V6. She was then admitted to [facility] on 07/11/2024 with NSTEMI. She [...] and Affect: M (more content not included)... [facility] 07-20-2024 Note Attestation signed by Richa Viramontes [...] Age: 59 y.o. : 1965 Account No.: [id number] Referring physician: Dr. Jarocho Saldaña Chief complaint: RML nodule HPI Aby Madrigal is a 59 y.o. female with hypertension, CAD status post PCI recently in June 2024,, cigarette smoking who is presenting to IP clinic via telemedicine as a new patient after being referred by Dr. Jarocho Saldaña. Patient reports recent admission to [facility] for hypertensive emergency. This prompted a CT of the chest which was positive for right middle lobe nodule. She then underwent PCI here at [facility] in June. She is currently [...] 04/21/2024 at [facility]: Right middle lobe approximately 1 cm spiculated nodule appreciated Subsequent PET CT 2024 at [facility]: Right middle lobe nodule is faintly PET [...] alcohol. She reports (more content not included)... [facility] 07-18-2024 Note REASON FOR VISIT + H PI: Aby Madrigal is a 59 y.o. female with CAD (PCI of LAD Jun 2024), HTN, TIA, panic attacks, SURESH, GERD, T2DM, and dyslipidemia who is being seen today for initial consultation at the request of Meseret Apodaca MD for evaluation of left adrenal mass. [...] metoprolol - CT A/P Jun 2019 in [place], [place] performed for abd pain, incidentally detected [...] History: Diagnosis Date Abnormal ECG Diabetes mellitus (CMS/[facility]) Hyperlipidemia Hypertension Obstructive sleep apnea Panic attacks Stroke (CMS/[facility]) Past Surgical History: Procedure Laterality Date CEREBRAL [...] Rfl: carvedilol (C (more content not included)... 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 Resides at home alone. Discharge plan is home. [facility] 07-18-2024 Note Patient sent to ED f or hypotension and dizziness/lightheadedness [facility] 07-12-2024 Note Hospital Medicine Discharge Summary Final Discharge Diagnosis: NSTEMI Admission Diagnosis: Hypokalemia [E87.6] NSTEMI (non-ST elevated myocardial infarction) ([facility]) [I21.4] Hypertensive urgency [I16.0] Adenoma of left adrenal gland [D35.02] Resistant hypertension [I1A.0] Atherosclerosis of [place] coronary artery of [place] heart without angina pectoris [I25.10] Coronary artery disease involving [place] coronary artery of [place] heart with unstable angina pectoris ([facility]) [I25.110] Type 2 diabetes mellitus without complication, without long-term current use of insulin ([facility]) [E11.9] Hospital course: 59yoF with CAD s/p LAD SARKIS 11 days ago who was admitted to [facility] on 07/11 for chest pain. patient initially presented to [facility] for uncomfortable feeling in her chest and was found to have elevated troponins and new ischemic changes on EKG. Infusion and cardiology was consulted transferred to [facility] for further evaluation. Initially the patient had blood pressures up to 192/65 for which home medications were restarted. Troponins at [facility] were negative and there were no [...] Center 07/18/2024 8:20 AM Feng Christie MD [facility] 07/20/2024 1:00 PM Richa Viramontes MD [facility] 09/05/2024 1:00 PM Bijan Licea MD [facility] Your medication list START taking [...] Medications These medications were sent to [facility]/pharmacy #[id number] [address] isosorbide mononitrate ER 60 mg 24 hr [...] activity In process (more content not included)... [facility] 07-11-2024 Note 07/11/24 1817 Financial Resource [...] place to sleep or slept in a intermediate (including now)? N Transportation Needs In the [...] than 3 How often do you attend roman catholic or orthodoxy services? Never Do you belong to any clubs or organizations such as roman catholic groups, unions, fraternal or athletic groups, or [...] In the past 12 months has the [employer], gas, oil, or water [employer] threatened to shut off services in your home? 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 department worker Referral Reason Psychosocial assessment Patient Information Primary Caregiver Self Accompanied by/Relationship Daughter (Rosita); Qjtuwyxg-ng-ksg (Yesy) Activities of Daily Living Assistive Device Not applicable Living Arrangement (Current/Prior to Hospitalization) Private residence (Lives at home by herself) Ambulation Independent Dressing Independent Feeding Independent Behavior Oriented (A&Ox4) Communication Can write;Talks;Understands speaking;Understands Armenian;Reads Income Information Income Source Unemployed (receives survivor benefits) Discharge Planning Support Systems Children;Family members (daughter, pjbuctyi-ch-nso, son) Type of Residence Private residence Will patient need Precert for Post Acute needs? No Patient's goal for discharge Home Does the patient need discharge transport arranged? No Completed social work assessment and SDoH screening. Patient was A&Ox4 at this time. Patient's daughter, Rosita, and patient's vjpfxfyu-lu-qcx, Yesy, were currently present at bedside. Patient reported that she lives at home by herself and she identified her support system as her daughter, Rosita, her hkdzvsro-th-ejg, Yesy, and her son, Elie. Patient endorsed [...] any alcohol consumption or recreational drug use. [facility] 07-11-2024 Note Hospital Medicine History and Physical 07/11/2024 12:19 PM THE HOSPITALIST TEAM PREFERS TO USE [employer] FOR COMMUNICATION 7AM-7PM. IF I DO NOT RESPOND WITHIN 15 MINUTES, PLEASE PAGE ME/CALL THROUGH THE LAB ASSISTANT. FROM 7PM-7AM, PLEASE PAGE [phone](COVR) Chief Complaint Chief Complaint Patient presents with [...] s/p stent placement 11 days ago at [facility] presented to ER as a transfer from [facility] for NSTEMI. Patient states that last [...] Noted Hypokalemia 07/11/2024 Coronary artery disease involving [place] coronary artery of [place] heart with unstable angina pectoris ([facility]) 07/11/2024 Anxiety 06/30/2024 Type 2 diabetes mellitus without complication, without long-term current use of insulin ([facility]) 06/30/2024 Chest pain 06/30/2024 Elevated troponin 06/30/2024 Hypertensive urgency 06/30/2024 Hypomagnesemia 06/30/2024 QURESHI (dyspnea on exertion) 05/26/2024 Atherosclerosis of [place] coronary artery of [place] heart without angina pectoris 05/26/2024 Hyperlipidemia 05/26/2024 Murmur, heart 05/26/2024 Sepsis ([facility]) 07/14/2019 BV (bacterial vaginosis) 10/18/2017 GERD (gastroesophageal reflux disease) 10/18/2017 Essential hypertension 10/18/2017 TIA (transient ischemic attack) 10/18/2017 NSTEMI (non-ST elevated myocardial infarction) ([facility]) 06/29/2024 Assessment and Plan NSTEMI CAD, s/p [...] for GI prophylaxis (more content not included)... [facility] 07-10-2024 Note [facility] Note Reason for cardiology [...] Take 1 tablet (more content not included)... [facility] 07-01-2024 Note Hospital Medicine Discharge Summary [...] hypertension, IBS presents a direct mission from [facility] with a chief complaint of chest [...] seen on her EKG. She went to [facility] for the symptoms. Labs were completed [...] on a heparin drip and transferred to [facility] for likely cardiac cath. # [...] - Continue metformin. Dear Dr. Lidia MD, [facility] is advised to follow up with you within 1-2 weeks. Items to follow up in ambulatory setting: None Follow-up with: Cardiology and Nephrology Scheduled appointments: Future Appointments Date Time Provider Department Center 07/10/2024 2:20 PM Bijan Licea [facility] Your medication list START taking these [...] Medications These medications were sent to [facility]/pharmacy #[id number] [place], [place] - [address] [address] carvedilol 25 mg tablet cloNIDine 0.1 mg tablet clopidogrel 75 mg tablet rosuvastatin 40 mg tablet Aby is allergic to lisinopril, norvasc [amlodipine], and xanax [alprazolam]. Disposition: Home or Self Care () Discharge Condition: Stable Code Status: Full Code Diagnostic Results Hematology: Results from last 7 days Lab Units 07/01/24 0606/30/24 0706/29/24 2344 WBC AUTO 10*3/uL 7.04 7.41 [...] days Lab Units (more content not included)... [facility] 07-01-2024 Note [facility] CARDIOLOGY INPAT IENT PROGRESS NOTE Reason for follow up: NSTEMI Subjective Aby Madrigal, a 59 y.o. female patient, is transferred from [facility] for continuity of care. Patient reports that 3 days ago, she woke up in the mid of the night with indigestion, and a feeling fullness, but no pressure like chest pain. She presented to [facility], where she was found to be hypertensive. [...] 0.56 06/29/2024 E (more content not included)... [facility] 06-30-2024 Note Patient: Aby antony Procedure Information Date/Time: 06/30/24 1600 Procedure: Coronary angiography (Bilateral) Location: [facility] BREAD PAN GREASER 3 / [facility]ULAR [facility] (Cath) Providers: Brunilda Cuellar [...] Plan discussed with attending. Additional Equipment Requests [facility] 06-30-2024 Note 06/30/24 1446 Referral Data Referral Source insole department worker Referral Reason Follow up;Information Patient Information Primary Caregiver Self Accompanied by/Relationship daughters at bedside Activities of Daily Living Assistive Device Not applicable Living Arrangement (Current/Prior to Hospitalization) Private residence (three to four stairs) Ambulation Independent Dressing Independent Feeding Independent Behavior Oriented Communication Talks;Understands speaking;Understands Armenian Discharge Planning Support Systems Children (daughters will [...] questions for social work at this time. [facility] 06-30-2024 Note 06/30/24 1431 Admission Assessment [...] Not Interested Does the patient have a machine adjuster leader case trim assigned to them through their insurance? No [...] to send link and activate MyChart? No [facility] 06-30-2024 Note Case was discussed w ith the SALVADOR on 06/29/2024. I agree with the history, physical, assessment, and plan of care. I discussed the findings and therapeutic plan. I agree with the documentation, except for any updates below. Maurice Nogueira MD [facility] 06-30-2024 Note Hospital Medicine History and Physical 06/30/2024 1:15 AM THE HOSPITALIST TEAM PREFERS TO USE [id number] CH[employer] FOR COMMUNICATION 7AM-7PM. IF I DO NOT RESPOND WITHIN 15 MINUTES, PLEASE PAGE ME/CALL THROUGH THE LAB ASSISTANT. FROM 7PM-7AM, PLEASE PAGE [phone](COVR) Chief Complaint Direct admission from [facility] with CP History of Present Illness Aby Madrigal is an 59 y.o. female who came from home with past medical history of anxiety, DM2, hypertension, IBS presents a direct mission from [facility] with a chief complaint of chest [...] seen on her EKG. She went to [facility] for the symptoms. Labs were completed [...] on a heparin drip and transferred to [facility] for likely cardiac cath. Review [...] complication, without long-term current use of insulin ([facility]) 06/30/2024 Chest pain 06/30/2024 Elevated troponin 06/30/2024 Hypertensive urgency 06/30/2024 QURESHI (dyspnea on exertion) 05/26/2024 Atherosclerosis of [place] coronary artery of [place] heart without angina pectoris 05/26/2024 Hyperlipidemia 05/26/2024 Murmur, heart 05/26/2024 Sepsis ([facility]) 07/14/2019 BV (bacterial vaginosis) 10/18/2017 GERD (gastroesophageal reflux disease) 10/18/2017 Essential hypertension 10/18/2017 TIA (transient ischemic attack) 10/18/2017 Assessment and Plan Aby Madrigal is an 59 y.o. female who came from home with past medical history of anxiety, DM2, hypertension, IBS presents a direct mission from [facility] with a chief complaint of chest pain. #Chest pain #Elevated troponin Troponin 0.1, will continue to trend -Patient continues to have mild chest discomfort upon arrival -Continue heparin drip -CXR negative for acute process at OSH -EKG showing normal sinus rhythm -N.p.o. for possible right and left cardiac cath in a.m. -Patient with new diastolic dysfunction on echoc (more content not included)... [facility] 06-21-2024 Note [place] Cardiology - [facility] Subjective Aby Madrigal is a 59 y.o. year old female patient being seen for follow up [facility] ED per Dr. Moran. She has not [...] attack) QURESHI (dyspnea on exertion) Atherosclerosis of [place] coronary artery of [place] heart without angina pectoris Hyperlipidemia Murmur, heart [...] emergency room few days ago [twice on 72 and on 06/17/2024] because of nausea and [...] Judgment: Judgment no (more content not included)... [facility] 05-26-2024 Note [facility] Note Reason for cardiology [...] mood, (more content not included)... [facility] 11-25-2022 Note OPERATIVE NOTE OPERATION DATE: 11/25/2022 PREOPERATIVE DIAGNOSIS: Colorectal screening. POSTOPERATIVE DIAGNOSIS: Normal colonoscopy to cecum. PROCEDURE: Colonoscopy to cecum. SURGEON: Umm Ladnon M.D. ANESTHESIA: Monitored anesthesia care. ESTIMATED BLOOD [...] 10 years. CC: Kendra Moran M.D. [facility] 10-11-2022 Note Chief Complaint consultation for [...] data available for this section General Surgery [facility] Discharge instructions No data available for this section General Surgery [place] [facility] note No data available for this section General Surgery [place] Summary Purpose Family History No Family History Records FoundNo Family History Records FoundNo Family History Records FoundNo Family History Records Found Advance Directives No Advanced Directives Records FoundNo Advanced Directives Records FoundNo Advanced Directives Records FoundNo Advanced Directives Records Found Additional Source Comments INFORMATION SOURCE (unrecogn ized section and content) DATE CREATED AUTHOR 12/17/2021 [facility] DATE CREATED AUTHOR AUTHOR'S ORGANIZ ATION 12/16/2022 [facility] DATE CREATED AUTHOR AUTHOR'S ORGANIZ ATION 03/26/2023 [facility] DATE CREATED AUTHOR AUTHOR'S ORGANIZ ATION 10/15/2024 [facility] Patient Care team informatio n (unrecognized section and content) Personnel Name: Kendra Moran MD Address: Address: [address] [place] [address] Personnel Name: Kendra Moran MD Address: Address: [address] [place] [address] FOR RECORDS PERTAINING TO PATIENTS WHO ARE [...] BE BASED ON THE PRIMARY CLINICAL RECORDS. [facility] [employer] [facility]. provides no warranty or guarantee of the accuracy or completeness of information in this document.
[2024-10-15 17:20] LABS: Alanine Aminotransferase 50 U/L (14-59); Albumin Globulin Ratio 1.1; Albumin Level 3.5 g/dL (3.4-5.0); Alkaline Phosphatase 71 U/L (46-116); Anion Gap 17.4; Aspartate Amino Transferase 36 U/L (15-37); BUN Creatinine Ratio 13.7; Bilirubin Total 0.3 mg/dL (0.2-1.0); Calcium 9.2 mg/dL (8.5-10.1); Carbon Dioxide 25.3 mmol/L (21.0-32.0); Chloride 106 mmol/L (98-107); Estimated GFR (African America 57 (>=60 mL/min/1.73m^2); Estimated GFR (Non-African Ame 47 (>=60 mL/min/1.73m^2); Globulin 3.2 g/dL; Glucose 106 mg/dL (74-106); Potassium 3.7 mmol/L (3.5-5.1); Sodium 145 mmol/L (136-145); Total Protein 6.7 g/dL (6.4-8.2)
[2024-10-15 17:28] LABS: Partial Thromboplastin Time 38.9 sec (22.3-36.2); Prothrombin Time 9.8 sec (9.0-11.6); Troponin I High Sensitivity 8.6 pg/mL (4.0-51.3)
[2024-10-15 17:30] LABS: INR <0.93
[2024-10-15] MEDS: LORAZEPAM 1 MG TABLET PO (17:50)
[2024-10-15] MEDS: KETOROLAC TROMETHAMINE 30 MG/ML VIAL IVP (18:03)
--- NOTE | 2024-10-15 18:40 | ED_ITS ---
HPI HPI - General Adult General Chief complaint: Arrhythmia/Palpitations Stated complaint: chest pain Time Seen by Provider: 10/15/24 16:56 Source: patient Mode of arrival: ambulance Limitations: no limitations History of Present Illness HPI narrative: 59-year-old female presented to the emergency room with a chief complaint of palpitations. She states palpitations began earlier today. Called emergency squad today to pick her up states she has not felt like doing home chores or doing anything around the house. Pain or dizziness. She states her heart feels full. Patient's had multiple ER visits and workups. Related Data Home Medications ?Medication ?Instructions ?Recorded ?Confirmed metformin 500 mg tablet 500 mg PO BID 04/21/24 10/15/24 aspirin 81 mg capsule 81 mg PO DAILY 04/22/24 10/15/24 clopidogrel 75 mg tablet 75 mg PO DAILY 07/01/24 10/15/24 pantoprazole 40 mg tablet,delayed 40 mg PO .ACB 07/20/24 10/15/24 release (Protonix) sennosides 8.6 mg-docusate sodium 1 tab-cap PO DAILY PRN constipation 07/20/24 10/15/24 50 mg tablet (Colace 2-In-1) losartan 100 mg tablet 100 mg PO DAILY 07/24/24 10/15/24 quetiapine 100 mg tablet (Seroquel) 100 mg PO .QHS 07/24/24 10/15/24 rosuvastatin 40 mg tablet 40 mg PO DAILY 07/24/24 10/15/24 isosorbide mononitrate 60 mg 60 mg PO BID 07/31/24 10/15/24 tablet,extended release 24 hr lorazepam 1 mg tablet (Ativan) 1 mg PO Q6H PRN anxiety 07/31/24 10/15/24 hydralazine 50 mg tablet 50 mg PO TID PRN hypertension 09/15/24 10/15/24 Previous Rx's ?Medication ?Instructions ?Recorded canagliflozin 100 mg tablet 100 mg PO QD #30 tabs 07/27/24 (Invokana) carvedilol 25 mg tablet 25 mg PO TID #90 tabs 07/27/24 Allergies Allergy/AdvReac Type Severity Reaction Status Date / Time amlodipine Allergy Mild Headache Verified 09/15/24 22:13 alprazolam (From Xanax) AdvReac Severe Watery Eye Verified 09/15/24 22:13 Opioid HPI Opioid Management Most Recent Opioid Data: Last Pain Scale 3 07/31/24 19:05 07/31/24 Last ORT Total Score 1 07/31/24 20:05 07/31/24 Last ORT Risk Category Low Risk 07/31/24 20:05 07/31/24 Review of Systems ROS Narrative All Systems are negative except as noted/marked.All systems reviewed and otherwise negative PFSH PFS Medical History (Updated 10/15/24 @ 18:39 by Julienne Fuchs) Chest pain ?R07.9 - Chest pain, unspecified (ICD-10) CAD (coronary artery disease) ?I25.10 - Atherosclerotic heart disease of [place] coronary artery without angina pectoris (ICD-10) Hypertensive urgency ?I16.0 - Hypertensive urgency (ICD-10) HTN (hypertension) ?I10 - Essential (primary) hypertension (ICD-10) Hypertensive urgency ?I16.0 - Hypertensive urgency (ICD-10) Chest pain ?R07.9 - Chest pain, unspecified (ICD-10) Anxiety ?F41.9 - Anxiety disorder, unspecified (ICD-10) HTN (hypertension) ?I10 - Essential (primary) hypertension (ICD-10) Hypokalemia ?E87.6 - Hypokalemia (ICD-10) Hypertension, uncontrolled ?I10 - Essential (primary) hypertension (ICD-10) Chest pain ?R07.9 - Chest pain, unspecified (ICD-10) NSTEMI (non-ST elevated myocardial infarction) ?I21.4 - Non-ST elevation (NSTEMI) myocardial infarction (ICD-10) Shortness of breath ?R06.02 - Shortness of breath (ICD-10) Headache ?R51.9 - Headache, unspecified (ICD-10) Elevated d-dimer ?R79.89 - Other specified abnormal findings of blood chemistry (ICD-10) Hypertensive emergency ?I16.1 - Hypertensive emergency (ICD-10) Uncontrolled hypertension ?I10 - Essential (primary) hypertension (ICD-10) Irritable bowel syndrome ?K58.9 - Irritable bowel syndrome without diarrhea (ICD-10) H/O nephrolithotomy with removal of calculi ?Z98.890 - Other specified postprocedural states (ICD-10) ?Z87.442 - Personal history of urinary calculi (ICD-10) Kidney stone ?N20.0 - Calculus of kidney (ICD-10) Sepsis ?A41.9 - Sepsis, unspecified organism (ICD-10) H/O angiography ?Z92.89 - Personal history of other medical treatment (ICD-10) Lung nodule ?R91.1 - Solitary pulmonary nodule (ICD-10) Anxiety ?F41.9 - Anxiety disorder, unspecified (ICD-10) HTN (hypertension) ?I10 - Essential (primary) hypertension (ICD-10) Diabetes ?E11.9 - Type 2 diabetes mellitus without complications (ICD-10) TIA (transient ischemic attack) ?G45.9 - Transient cerebral ischemic attack, unspecified (ICD-10) Surgical History H/O heart artery stent ?Z95.5 - Presence of coronary angioplasty implant and graft (ICD-10) History of appendectomy ?Z90.49 - Acquired absence of other specified parts of digestive tract (ICD- 10) H/O tubal ligation ?Z98.51 - Tubal ligation status (ICD-10) History of cholecystectomy ?Z90.49 - Acquired absence of other specified parts of digestive tract (ICD- 10) Family History (Updated 04/22/24 @ 01:15 by Stalin Kevin) Mother Family history of cancer Father MVA (motor vehicle accident) Brother Family history of stroke Social History (Updated 04/22/24 @ 01:26 by Stalin Kevin) Within the past year, how often did you have a drink containing alcohol: never Within the past year, how often did you have six or more drinks on one occasion: never Score interpretation: A score less than 3 is consistent with normal alcohol consumption. Smoking status: Former smoker Second hand tobacco smoke exposure: No Non-prescribed substance use: denies use Previous occupational history: no Known occupational exposures/hazards: No Highest level of school completed/degree received: high school graduate Do you want help with school or training: No Are you now , , , , never or living with a partner: In a typical week, how many times do you talk on the telephone with family, friends, or neighbors: 3 or more times per week How often do you get together with friends or relatives: 3 or more times per week How often do you attend hoahaoism or anabaptism services: never Do you belong to any clubs or organizations such as hoahaoism groups unions, fraternal or athletic groups, or school groups: no Total score: 1 Score interpretation: A score of less than or equal to 1 indicates the most socially isolated. Little interest or pleasure in doing things: not at all Feeling down, depressed, or hopeless: not at all Feel stressed/tense/nervous/anxious/difficulty sleeping: not at all Do you think of yourself as: straight/heterosexual Gender Identity: female Exam Narrative Exam Narrative: Nurses note and vital signs reviewed and patient is not hypoxic. General: The patient appears well and in no apparent distress. Patient is resting comfortably on cart. Skin: Warm, dry, no pallor noted. There is no rash noted. Head: Normocephalic, atraumatic Eye: Normal conjunctiva, no drainage, EOMI. PERRL Ears, Nose, Mouth, and Throat: oral mucosa is moist. Nares patent. Mouth without vesicles. Ear canals patent. Tm's without Erythema Cardiovascular: Regular Rate and Rhythm Respiratory: Patient is in no distress, no accessory muscle use, lungs are clear to auscultation, no wheezing, rales or rhonchi Back: non-tender, no CVA tenderness bilaterally to percussion. GI: Normal bowel sounds, no tenderness to palpation, no masses appreciated. No rebound, guarding, or rigidity noted. Musculoskeletal: The patient has no evidence of calf tenderness, no pitting ed kinza, symmetrical pulses noted bilaterally Neurological: A&O x4, normal speech Psychiatric: Cooperative Constitutional Vital Signs, click to edit/add: Last Vital Signs Temp 98.3 F 10/15/24 16:53 Pulse 68 10/15/24 17:40 Resp 18 10/15/24 16:53 BP 141/88 10/15/24 17:30 Pulse Ox 97 10/15/24 17:40 O2 Del Method Room Air 10/15/24 16:53 Course Vital Signs Vital signs: Vital Signs Temperature 98.3 F 10/15/24 16:53 Pulse Rate 74 10/15/24 16:53 Respiratory Rate 18 10/15/24 16:53 Blood Pressure 155/83 H 10/15/24 16:53 Pulse Oximetry 96 10/15/24 16:53 Oxygen Delivery Method Room Air 10/15/24 16:53 Temperature 98.3 F 10/15/24 16:53 Pulse Rate 68 10/15/24 17:40 Respiratory Rate 18 10/15/24 16:53 Blood Pressure 141/88 10/15/24 17:30 Pulse Oximetry 97 10/15/24 17:40 Oxygen Delivery Method Room Air 10/15/24 16:53 Medical Decision Making MDM Narrative Medical decision making narrative: 59-year-old female presented to the emergency room chief complaint of palpitations. On arrival to the emergency room she came by squad. EMS did give her nitro and aspirin. Vital signs were stable she denied a history of chest pain she states she had palpitations. Patient has a history of anxiety and admits she did not take her anxiety medications earlier today. She states she does not feel like doing any home for housework or work around the house and that concerned her. Patient had multiple ER visits. Today she had a cardiac workup including CBC CMP troponin and chest x-rays which were all negative. Medicated here with 30 mg Toradol for her headache and also 1 mg Ativan as that is what she takes at home and requested. Patient does not appear distressed she feels much better after taking her Ativan. Patient is stable to be discharged home she agrees with plan of care. Diagnosis of chest palpitations. Differential Diagnosis Differential Diagnosis: Anxiety, Depression, chest pain Medical Records Medical records reviewed: Yes I reviewed the patient's medical records Lab Data Lab results reviewed: Yes I reviewed the patient's lab results Labs: Lab Results 10/15/24 Range/Units 16:55 WBC 6.7 (4.0-11.0) 10^3/uL RBC 4.57 (4.20-5.40) 10^6/uL Hgb 12.1 (12.0-16.0) g/dL Hct 38.6 (36.0-48.0) % MCV 84.5 (81.0-99.0) fL MCH 26.5 L (26.7-34.0) pg MCHC 31.3 (29.9-35.2) g/dL RDW 15.2 H (11.0-15.0) % Plt Count 247 (150-450) 10^3/uL MPV 10.3 (9.5-13.5) fL Neut % (Auto) 57.5 (43.0-75.0) % Lymph % (Auto) 30.7 (20.5-60.0) % [place] % (Auto) 7.0 (1.7-12.0) % Eos % (Auto) 3.7 (0.9-7.0) % Baso % (Auto) 1.0 (0.2-2.0) % Neut # (Auto) 3.9 (1.4-6.5) 10^3/uL Lymph # (Auto) 2.1 (1.2-3.8) 10^3/uL [place] # (Auto) 0.5 (0.3-0.8) 10^3/uL Eos # (Auto) 0.3 (0.0-0.7) 10^3/uL Baso # (Auto) 0.1 (0.0-0.1) 10^3/uL Abs Immat Gran (auto) 0.01 (0.00-0.03) 10^3/uL Imm/Tot Granulo (auto) 0.1 (0.0-0.5) % PT 9.8 (9.0-11.6) sec INR <0.93 APTT 38.9 H (22.3-36.2) sec Sodium 145 (136-145) mmol/L Potassium 3.7 (3.5-5.1) mmol/L Chloride 106 (98-107) mmol/L Carbon Dioxide 25.3 (21.0-32.0) mmol/L Anion Gap 17.4 BUN 16.0 (7.0-18.0) mg/dL Creatinine 1.17 H (0.55-1.02) mg/dL Est GFR ( Amer) 57 L (>=60 mL/min/1.73m^2) Est GFR (Non-Af Amer) 47 L (>=60 mL/min/1.73m^2) BUN/Creatinine Ratio 13.7 Glucose 106 (74-106) mg/dL Calcium 9.2 (8.5-10.1) mg/dL Total Bilirubin 0.3 (0.2-1.0) mg/dL AST 36 (15-37) U/L ALT 50 (14-59) U/L Alkaline Phosphatase 71 (46-116) U/L Troponin I High Sens 8.6 (4.0-51.3) pg/mL NT-Pro-B Natriuret Pep 168.0 (<=900.0) pg/mL Total Protein 6.7 (6.4-8.2) g/dL Albumin 3.5 (3.4-5.0) g/dL Globulin 3.2 g/dL Albumin/Globulin Ratio 1.1 ECG Data Interpretation: 1656 rhythm with a rate of 72 bpm MT interval 176 ms QRS duration 88 ms, no STEMI EKG compared to old in September 2024 Discharge Plan Discharge Chief Complaint: Arrhythmia/Palpitations Clinical Impression: Palpitations Patient Disposition: Home, Self-Care Time of Disposition Decision: 18:38 Condition: Good Prescriptions / Home Meds: No Action metformin 500 mg tablet 500 mg PO BID aspirin 81 mg capsule 81 mg PO DAILY sennosides-docusate sodium [Colace 2-In-1] 8.6-50 mg tablet 1 tab-cap PO DAILY PRN (Reason: constipation) pantoprazole [Protonix] 40 mg tablet,delayed release (DR/EC) 40 mg PO .ACB losartan 100 mg tablet 100 mg PO DAILY rosuvastatin 40 mg tablet 40 mg PO DAILY quetiapine [Seroquel] 100 mg tablet 100 mg PO .QHS Rx Instructions: AT HS carvedilol 25 mg Tablet 25 mg PO TID Qty: 90 11RF Invokana 100 mg Tablet 100 mg PO QD Qty: 30 11RF isosorbide mononitrate 60 mg Tablet Extended Release 24 Hr 60 mg PO BID lorazepam [Ativan] 1 mg tablet 1 mg PO Q6H PRN (Reason: anxiety) Rx Instructions: 0.5 MG 1-2 TABS hydralazine 50 mg tablet 50 mg PO TID PRN (Reason: hypertension) Rx Instructions: States takes it if syst>150 clopidogrel 75 mg tablet 75 mg PO DAILY Print Language: Marshallese Instructions: Heart Palpitations (ED) Referrals: Carlito Murillo MD [Primary Care Provider] - 1 week
== END 2024-10-15 18:46 | disposition home or self-care (01) ==
PROVIDERS: Physician Assistant; Emergency Provider Emergency Medicine; PCP Family Medicine
DX: R00.2 Palpitations (principal); Z95.5 Presence of coronary angioplasty implant and graft; Z98.51 Tubal ligation status; Z90.49 Acquired absence of other specified parts of digestive tract; Z87.891 Personal history of nicotine dependence; F41.9 Anxiety disorder, unspecified
CPT/HCPCS: 36415; 71046; 80053; 83880; 84484; 85025; 85610; 85730; 93005; 96374; 99285; J1885

== ENCOUNTER 2024-11-03 12:44 | Outpatient (OUT) | payer MEDICAID, SELFPAY ==
--- NOTE | 2024-11-03 13:00 | RT_ITS ---
[facility] Test Date: 2024-11-03 Pat Name: MILAN RASMUSSEN Department: Room: - Gender: Female Clinical Program Consultant: Mary Peoples RRT : 1965 Requested By: [id number] Order Number: [id number] Reading MD: Marlon Beal Interpretive Statements Pulmonary function testing was completed according to ATS criteria. Findings were considered accurate and reproducible, with exception of DLCO which did not meet ATS standards. Both pre- and post-bronchodilator values utilized for spirometry. Spirometry (based on pre-bronchodilator values): -FEV1/FVC: Normal @ 80% -FEV1: Normal @ 86% -FEV1: Low normal @ 82% -There is no significant bronchodilator response. Lung volumes by plethysmography: -RV: Normal @ 84% -TLC: Normal @ 92% Diffusion capacity: -DLCO: Mild reduction @ 79% when corrected for Hb 12.1g/dL Flow-volume loop: -Mild restrictive pattern Impressions: -Normal spirometry and lung volumes with a very mild diffusion impairment. This pattern can be seen in, but not restricted to, cardiopulmonary vascular disorders, early interstitial lung disease, and early emphysema. Clinical correlation required. Electronically Signed On 11-08-2024 6:59:28 EST by Marlon Beal
[2024-11-03] MEDS: ALBUTEROL SULFATE 2.5 MG/3 ML VIAL NEB IH (13:42)
== END 2024-11-03 12:45 | disposition home or self-care (01) ==
LOC: CARD 12:44
PROVIDERS: PCP Family Medicine
DX: R06.2 Wheezing (principal)
CPT/HCPCS: 94060; 94726; 94729

== ENCOUNTER 2024-11-12 05:58 | Observation (INO) | payer MEDICAID, SELFPAY ==
[2024-11-12] VITALS (48 sets, daily range): BP systolic 131–182; BP diastolic 59–85; PULSE 64–82; TEMP 36.3–37; O2SAT 94–100; BMI 36.3; BMI 24.8
--- OUTSIDE RECORDS SUMMARY | 2024-11-12 06:04 | XMS_ITS | CCD ---
Author Organization [facility] Clin[facility]ianaCare Care Team Providers Care Termite Control Service Representative Name Role Phone Kendra Moran Primary Care [...] HOY ., DR GARDNER Primary Care Unavailable [place], DR ADELIA Medrano Consulting Unavailable KENDRA MORAN [...] Propensity to adverse reactions (disorder) [facility] Repository (1 source) ALPRAZolam; Translations: [ALPRAZOLAM] Drug Allergy [address] [place] [address] Repository (1 source) amLODIPine; Translations: [AMLODIPINE] Drug Allergy [address] [place] [address] Repository (1 source) Lisinopril; Translations: [LISINOPRIL] Drug Allergy [address] [place] [address] Repository Medications Current Medications Medication Drug Class(es) [...] Coronary arteriosclerosis; Translations: [Atherosclerotic heart disease of havasupai coronary artery without angina pectoris] Onset: 11-26-2022 [...] Onset: 06-29-2024 Episodic Other aftercare (1 source) alf (current) use of aspirin; Translations: [SENIOR CARE CURRENT USE OF ASPIRIN] Onset: 11-26-2022 Episodic Other aftercare (1 source) 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 To confirm if you have primary aldosteronism were going to do something called a saline infusion test at the [facility] they will be in contact with you likely within the next week. This is a 2-hour test in which we infused saline 2 L and assess any changes in your aldosterone level. This is in a monitored setting so you will not be alone. [facility] Follow-Upon 10-03-2024 Follow-Up [id number] Aby Madrigal 1965 F Date Provider Department Center 10/03/2024 [id number], WADE [facility] ENDOCR [facility] Family History Problem Relation Age of Onset Lung cancer Mother No Known Problems Father Lung cancer Sister Family Status - Relation Status Age at Mother Father Sister Level of Service:34117 [place] OFFICE/OUTPATIENT ESTABLISHED MOD MDM 30 MIN Reason for Visit and Comments: Follow-up [216363] [facility] Office Visiton 09-04-2024 Follow-up visit [id number] Aby Madrigal 1965 F Date Provider Department Center 09/04/2024 GOMEZ KENDALL RIAZ [place] Family History Problem Relation Age of Onset Lung cancer Mother No Known Problems Father Lung cancer Sister Family Status - Relation Status Age at Mother Father Sister Level of Service:59009 [place] OFFICE/OUTPATIENT ESTABLISHED MOD MDM 30 MIN [facility] ALDOSTERONEon 08-29-2024 ALDOSTERONE (NG/DL) IN SER/PLAS 13.0 ng/dL [facility] Comment on above: Result Comment: INTE [...] reference intervals for this test in the [employer] [facility] Test Directory ([employer]). Performed By: [facility] [address] [place] [id number] Casino Controller: Navneet Simeon MD, PhD CLIA Number: [id number] Performed By: #### L [id number] #### [facility] (BEAKER) [address] [place] [address] Ron 08-29-2024 ALT [Catalytic activity/Vol] 25 U/L Normal 7-52 [facility] Comment on above: Performed By: #### L [id number] ####[facility] (BEAKER)[address] [place] [address] Riki 08-29-2024 AST [Catalytic activity/Vol] 21 U/L Normal 13-39 [facility] Comment on above: Performed By: #### L [id number] ####[facility] (BEAKER)[address] [facility] [address] BASIC METABOLIC PANELon 10-0 Anion gap [Moles/Vol] 12 mmol/L Normal 7-20 [facility] Comment on above: Performed By: #### L [id number] ####[facility] (BEAKER)[address] [facility] [address] Calcium [Mass/Vol] 9.3 mg/dL Normal 8.6-10.3 [facility] Comment on above: Performed By: #### L [id number] ####[facility] (BEAKER)[address] [facility] [address] Chloride [Moles/Vol] 105 mmol/L Normal 98-107 [facility] Comment on above: Performed By: #### L [id number] ####[facility] (BEAKER)[address] [place] [address] CO2 [Moles/Vol] 28 mmol/L Normal 21-31 [facility] Comment on above: Performed By: #### L [id number] ####[facility] ([facility])[address] [place] [address] Creatinine [Mass/Vol] 0.95 mg/dL Normal 0.60-1.20 [facility] Comment on above: Performed By: #### L [id number] ####[facility] ([facility])[address] [place] [address] GLOMERULAR FILTRATION RATE ML/MIN/1.73 SQ M.PREDICTED 68.6 mL/min/1.73m*2 Normal >60.0 [facility] Comment on above: Result Comment: [facility]???s estimated glomerular filtration rate (eGFR) will [...] of individuals. Performed By: #### L [id number] ####[facility] ([facility])[address] [place] [address] Glucose [Mass/Vol] 99 mg/dL Normal 70-100 [facility] Comment on above: Performed By: #### L [id number] ####[facility] ([facility])[address] [place] [address] Potassium [Moles/Vol] 3.6 mmol/L Normal 3.5-5.1 [facility] Comment on above: Performed By: #### L [id number] ####[facility] ([facility])[address] [place] [address] Sodium [Moles/Vol] 141 mmol/L Normal 136-145 [facility] Comment on above: Performed By: #### L [id number] ####[facility] ([facility])[address] [place] [address] Urea nitrogen [Mass/Vol] 19 mg/dL Normal 7-25 [facility] Comment on above: Performed By: #### L [id number] ####[facility] ([facility])[address] [place] [address] UREA NITROGEN/CREATININE (MASS RATIO) IN SER/PLAS 20.0 Normal [facility] Comment on above: Performed By: #### L [id number] ####[facility] ([facility])[address] [place] [address] CORTISOLon 08-29-2024 CORTISOL (UG/DL) IN SER/PLAS 6.1 ug/dL Normal 0-9 [facility] Comment on above: Performed By: #### L [id number] #### [facility] ([facility]) [address] [place] [address] CT ABDOMEN PELVIS W AND WO I [...] Electronically signed: Marybeth Lane Invalid Interpretation Code [facility] DEXAMETHASONE LEVELon 2023 DEXAMETHASONE <50.0 Normal [facility] Comment on above: Order Comment: Blood [...] developed and its performance characteristics determined by [facility]. It has not been cleared or approved by the US Food and Drug Administration. This test was performed in a CLIA certified laboratory and is intended for clinical purposes. Performed By: [facility] [employer] [address] [place] [address] Casino Controller: Navneet Simeon MD, PhD CLIA Number: [id number] Performed By: #### L [id number] #### [facility] ([facility]) [address] [place] [address] LIPID PANELon 08-29-2024 CHOL/HDL 2.4 mg/dL Normal [facility] Comment on above: Performed By: #### L [id number] #### [facility] ([facility]) [address] [place] [address] Cholesterol [Mass/Vol] 80 mg/dL Low 120-200 [facility] Comment on above: Performed By: #### L [id number] #### [facility] ([facility]) [address] [place] [address] Magnesium [Mass/Vol] 96 mg/dL Normal 40-149 [facility] Comment on above: Result Comment: TRIG LYCERIDE REFERENCE RANGE: 20 YEARS AND OLDER CARDIOVASCULAR RISK LESS THAN 150 mg/dL LOW RISK 150 TO 199 mg/dL BORDERLINE RISK 200 mg/dL AND GREATER HIGH RISK Performed By: #### L [id number] #### [facility] ([facility] [address] [place] [address] Magnesium [Mass/Vol] 28 mg/dL Normal 0-160 [facility] Comment on above: Performed By: #### L [id number] #### [facility] ([facility] [address] [place] [address] Magnesium [Mass/Vol] 33 mg/dL Normal 23-92 [facility] Comment on above: Performed By: #### L [id number] #### [facility] (BEAKER) [address] [place] [address] NON HDL CHOL. (LDL+VLDL) 47 Normal [facility] Comment on above: Performed By: #### L [id number] #### [facility] (BEAKER) [address] [place] [address] TOTAL VLDL-C 19 mg/dL Normal 0-40 [facility] Comment on above: Performed By: #### L [id number] #### [facility] (BEAKER) [address] [place] [address] Labon 08-29-2024 Lab [id number] Aby Madrigal Cristina 1965 F Date Provider Department Center 08/29/2024 [id number] OPD LAB RESOURCE [facility] OPD [facility] Family History Problem Relation Age of Onset Lung cancer Mother No Known Problems Father Lung cancer Sister Family Status - Relation Status Age at Mother Father Sister Normal [facility] RENIN ACTIVITYon 08-29-2024 RENIN ACTIVITY <0.1 Normal [facility] Comment on above: Result Comment: INTE [...] developed and its performance characteristics determined by [facility]. It has not been cleared or approved by the US Food and Drug Administration. This test was performed in a CLIA certified laboratory and is intended for clinical purposes. Performed By: [facility] [address] [place] [address] Casino Controller: Navneet Simeon MD, PhD CLIA Number: [id number] Performed By: #### L [id number] ####[facility] ([facility])[address] [place] [address] 36on 08-10-2024 36 Updated patient on [facility] blood test results and plan for f/u CT and appt scheduled for 10/26/24. Normal [facility] Letter (Out)on 08-09-2024 Letter (Out) [id number] Aby Madrigal 1965 F Date Provider Department Center 08/09/2024 None-None [facility] ADMIT None Family History Problem Relation Age of Onset Lung cancer Mother No Known Problems Father Lung cancer Sister Family Status - Relation Status Age at Mother Father Sister Normal [facility] 36on 08-08-2024 36 Called patient over the phone at 9:17 AM - discussed recent lab results from [place] (including M cortisol of 1.7 after dex, renin undetectable, aldosterone level 4.4) - ruled out autonomous cortisol production - she has stopped spironolactone for about 2 weeks now, continue to hold this until our next appt and we will reassess ARR. We will meet again on Oct 03 She thanked me for the call Normal [facility] Orders Onlyon 08-08-2024 Orders Only [id number] Rohan,Aby S 1965 F Date Provider Department Center 08/08/2024 RICHA MERINO ONC NICKI Family History Problem Relation Age of Onset Lung cancer Mother No Known Problems Father Lung cancer Sister Family Status - Relation Status Age at Mother Father Sister Normal [facility] Telephoneon 08-08-2024 Telephone [id number] Rohan,Aby S 1965 F Date Provider Department Center 08/08/2024 [id number], WADE [facility] ENDOCR [facility] Family History Problem Relation Age of Onset Lung cancer Mother No Known Problems Father Lung cancer Sister Family Status - Relation Status Age at Mother Father Sister Normal [facility] Telemedicineon 07-20-2024 Telemedicine [id number] Nelababebe,Aby S 1965 Date Provider Department Center 07/20/2024 RICHA MERINO ONC NICKI Family History Problem Relation Age of Onset Lung cancer Mother No Known Problems Father Lung cancer Sister Family Status - Relation Status Age at Mother Father Sister Level of Service:10315 [place] PHYS/QHP TELEPHONE EVALUATION 21-30 MIN () Reason for Visit and Comments: 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 CHEST 04-21-24- PET 06-21-24 Films requested 07-18-24 HAVING HARD TIME GETTING FILMS FROM [place] AGAIN. Ginny at [facility] ([phone] direct line) is working on sending them. CHECK [facility] FOR FILMS PLEASE [facility] 37on 07-18-2024 37 It was great [...] lab work done at one of these [facility] Lab Sites The results will then come straight to me I appreciate it [facility] [address], [place] Hours Wednesday - Wednesday 8 AM - 4PM (Closed 12 - 12:30 PM daily) Phone: [facility] [address] Hours: Wednesday 6 AM - 5 PM Saturday: 7 AM - 2 PM Phone: [address] [place] Hours: Wednesday - Wednesday 7 AM - 3:30 PM Phone: [facility] [address] Hours: Wednesday 7 AM - 5:30 PM Phone: [facility] [address] Hours: Wednesday - Wednesday 8 AM - 4:30 PM Phone: Normal [facility] EDNURSon 07-18-2024 EDNURS ADR and relevant inf o reported to [facility] in pharmacy d/t safety net being down. Viet Kelly RN 07/18/24 1139 Normal [facility] EDNURS SENT FROM MD OFFICE RE: LOW BP; RECENT DC FROM [facility] FOR SAME Normal [facility] EDPROVon 07-18-2024 EDPROV HPI Chief Complaint [...] new meds yesterday. 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 Normal [facility] Office Visiton 07-18-2024 Follow-up visit [id number] Aby Madrigal 1965 Date Provider Department Center 07/18/2024 [facility]ENG [place] [facility] Family History Problem Relation Age of Onset Lung cancer Mother No Known Problems Father Lung cancer Sister Family Status - Relation Status Age at Mother Father Sister Level of Service:05334 [place] OFFICE/OUTPATIENT NEW MODERATE MDM 45 MINUTES Reason for Visit and Comments: Nodules [Other] Normal [facility] Follow-up visit [id number] Aby Madrigal 1965 F Date Provider Department Center 07/18/2024 [facility] [facility] Family History Problem Relation Age of Onset Lung cancer Mother No Known Problems Father Lung cancer Sister Family Status - Relation Status Age at Mother Father Sister Level of Service:NOCHG [place]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 Reason for Visit and Comments: BP Issues, DM, and Kidney issue [Other] [facility] 36on 07-13-2024 36 Post Discharge Call Good morning, I am Ginny Garcia RN a lead nurse from [facility] [...] Patient Name Aby Madrigal Date 07/13/24 [facility] Telephoneon 07-13-2024 Telephone [id number] Aby Madrigal 1965 F Date Provider Department Center 07/13/2024 GINNY MALONEY [facility] Family History Problem Relation Age of Onset Lung cancer Mother No Known Problems Father Lung cancer Sister Family Status - Relation Status Age at Mother Father Sister Reason for Visit and Comments: Hospital Follow-up [832] [facility] 30on 07-12-2024 30 The patient is [...] to address these barriers include . Normal [facility] ANTI-XA (HEPARIN LEVEL)on HEPARIN UNFRACTIONATED (U/ML) IN PPP BY CHROMOGENIC METHOD 0.60 IU/mL Normal 0.3-0.7 [facility] Comment on above: Order Comment: Check anti-Xa level every 6 hours while on heparin infusion, or per protocol. Result Comment: Radha roxaban and Apixaban will interfere with the anti Xa assay used to monitor UFH and LMWH. Performed By: #### L [id number] #### [facility] ([facility] [address] [place] [address] BASIC METABOLIC PANELon 06-23 Anion gap [Moles/Vol] 10 mmol/L Normal 7-20 [facility] Comment on above: Performed By: #### L [id number] #### [facility] ([facility]) [address] [place] [address] Calcium [Mass/Vol] 8.8 mg/dL Normal 8.6-10.3 [facility] Comment on above: Performed By: #### L [id number] #### [facility] (BEAKER) [address] [place] [address] Chloride [Moles/Vol] 108 mmol/L High 98-107 [facility] Comment on above: Performed By: #### L [id number] #### [facility] (BEAKER) [address] [place] [address] CO2 [Moles/Vol] 27 mmol/L Normal 21- [facility] Comment on above: Performed By: #### L [id number] #### [facility] (BEAKER) [address] [place] [address] Creatinine [Mass/Vol] 0.89 mg/dL Normal 0.60-1.20 [facility] Comment on above: Performed By: #### L [id number] #### [facility] (BEAKER) [address] [place] [address] GLOMERULAR FILTRATION RATE ML/MIN/1.73 SQ M.PREDICTED 74.2 mL/min/1.73m*2 Normal >60.0 [facility] Comment on above: Result Comment: [facility]???s estimated glomerular filtration rate (eGFR) will [...] group of individuals. Performed By: #### L [id number] #### [facility] ([facility]) [address] [place] [address] Glucose [Mass/Vol] 109 mg/dL High 70-100 [facility] Comment on above: Performed By: #### L [id number] #### [facility] ([facility]) [address] [place] [address] Potassium [Moles/Vol] 3.4 mmol/L Low 3.5-5.1 [facility] Comment on above: Performed By: #### L [id number] #### [facility] ([facility]) [address] [place] [address] Sodium [Moles/Vol] 142 mmol/L Normal 136-145 [facility] Comment on above: Performed By: #### L [id number] #### [facility] ([facility]) [address] [place] [address] Urea nitrogen [Mass/Vol] 11 mg/dL Normal 7-25 [facility] Comment on above: Performed By: #### L [id number] #### [facility] ([facility]) [address] [place] [address] UREA NITROGEN/CREATININE (MASS RATIO) IN SER/PLAS 12.4 Normal [facility] Comment on above: Performed By: #### L [id number] #### [facility] ([facility]) [address] [place] [address] CBC WITH AUTO DIFFERENTIALon 07-12-2024 Basophils (Bld) [#/Vol] 0.04 10*3/uL Normal 0.00-0.20 [facility] Comment on above: Performed By: #### L [id number] #### [facility] ([facility]) [address] [place] [address] Basophils/100 WBC (Bld) 0.6 % Normal 0.0-1.0 [facility] Comment on above: Performed By: #### L [id number] #### [facility] ([facility]) [address] [address] Eosinophils (Bld) [#/Vol] 0.22 10*3/uL Normal 0.00-0.50 [facility] Comment on above: Performed By: #### L [id number] #### [facility] ([facility]) [address] [place] [address] Eosinophils/100 WBC (Bld) 3.5 % Normal 0.0-6.0 [facility] Comment on above: Performed By: #### L [id number] #### [facility] ([facility]) [address] [place] [address] Erythrocyte distribution width (RBC) [Ratio] 14.5 % Normal 11.5-15.0 [facility] Comment on above: Performed By: #### L [id number] #### [facility] ([facility]) [address] [address] ERYTHROCYTE MEAN CORPUSCULAR HEMOGLOBIN CONCENTRATION (G/DL) BY AUTOMATED 32.7 g/dL Normal 32.0-35.0 [facility] Comment on above: Performed By: #### L [id number] #### [facility] ([facility]) [address] [place] [address] Hematocrit (Bld) [Volume fraction] 34.2 % Low 36.0-48.0 [facility] Comment on above: Performed By: #### L [id number] #### [facility] ([facility]) [address] [place] [address] Hemoglobin (Bld) [Mass/Vol] 11.2 g/dL Low 12.0-15.0 [facility] Comment on above: Performed By: #### L [id number] #### [facility] (BEAKER) [address] [place] [address] Immature granulocytes (Bld) [#/Vol] 0.01 10*3/uL Normal 0.00-0.20 [facility] Comment on above: Performed By: #### L [id number] #### [facility] (BEAKER) [address] [place] [address] Immature granulocytes/100 WBC (Bld) 0.2 % Normal 0.0-1.0 [facility] Comment on above: Performed By: #### L [id number] #### [facility] ([facility]) [address] [place] [address] Lymphocytes (Bld) [#/Vol] 2.37 10*3/uL Normal 1.20-4.00 [facility] Comment on above: Performed By: #### L [id number] #### [facility] (BEAKER) [address] [place] [address] Lymphocytes/100 WBC (Bld) 37.8 % Normal 20.0-45.0 [facility] Comment on above: Performed By: #### L [id number] #### [facility] (BEAKER) [address] [place] [address] MCH (RBC) [Entitic mass] 27.4 pg Normal 27.0-33.0 [facility] Comment on above: Performed By: #### L [id number] #### [facility] (BEAKER) [address] [place] [address] MCV (RBC) [Entitic vol] 83.6 fL Normal 82.0-98.0 [facility] Comment on above: Performed By: #### L [id number] #### [facility] (BEAKER) [address] [place] [address] Monocytes (Bld) [#/Vol] 0.43 10*3/uL Normal 0.10-1.00 [facility] Comment on above: Performed By: #### L [id number] #### [facility] ([facility]) [address] [place] [address] Monocytes/100 WBC (Bld) 6.9 % Normal 5.0-12.0 [facility] Comment on above: Performed By: #### L [id number] #### [facility] ([facility]) [address] [place] [address] Neutrophils (Bld) [#/Vol] 3.20 10*3/uL Normal 1.60-7.60 [facility] Comment on above: Performed By: #### L [id number] #### [facility] ([facility]) [address] [place] [address] Neutrophils/100 WBC (Bld) 51.0 % Normal 40.0-72.0 [facility] Comment on above: Performed By: #### L [id number] #### [facility] ([facility]) [address] [place] [address] NRBC (PER 100 WBCS) BY AUTOMATED COUNT 0.0 % Normal 0 [facility] Comment on above: Performed By: #### L [id number] #### [facility] ([facility]) [address] [place] [address] PLATELETS (10*3/UL) IN BLOOD AUTOMATED COUNT 223 10*3/uL Normal 150-400 [facility] Comment on above: Performed By: #### L [id number] #### [facility] ([facility]) [address] [place] [address] RBC (Bld) [#/Vol] 4.09 10*6/uL Normal 3.80-5.00 [facility] Comment on above: Performed By: #### L [id number] #### [facility] ([facility]) [address] [place] [address] WBC (Bld) [#/Vol] 6.27 10*3/uL Normal 4.00-10.60 [facility] Comment on above: Performed By: #### L [id number] #### [facility] ([facility]) [address] [place] [address] MAGNESIUMon 07-12-2024 Magnesium [Mass/Vol] 1.7 mg/dL Low 1.9-2.7 [facility] Comment on above: Performed By: #### L [id number] #### [facility] ([facility]) [address] [address] POCT GLUCOSE METER UNSOLICIT ED RESULTSon 07-12-2024 Glucose [Mass/Vol] 102 mg/dL Normal 70-105 [facility] Comment on above: Order Comment: Waive d Testing in the ED is performed under the ED CLIA certificate #[id number]. Result Comment: [email or web address] Performed By: #### L [id number] ####[facility] ([facility])[address] [place] [address] TROPONIN Ion 07-12-2024 Troponin I.cardiac [Mass/Vol] 0.01 ng/mL Normal 0.00-0.04 [facility] Comment on above: Performed By: #### L [id number] #### [facility] ([facility]) [address] [place] [address] 30on 07-11-2024 30 The patient is Moderately [...] and maintained or improved Outcome: Progressing Normal [facility] 30 The patient is Moderately Stable - Low risk of patient condition declining or worsening The patient's goals for the shift include no chest pain The clinical goals for the shift include stable vital/no chest pain Over the shift, the patient did not make progress toward the following goals. Barriers to progression include . Recommendations to address these barriers include . Normal [facility] ALDOSTERONEon 07-11-2024 ALDOSTERONE (NG/DL) IN SER/PLAS 4.9 ng/dL Normal [facility] Comment on above: Result Comment: INTE [...] reference intervals for this test in the [employer] [facility] Test Directory ([employer]). Performed By: [facility] [address] [place] [address] Casino Controller: Navneet Simeon MD, PhD CLIA Number: [id number] Performed By: #### L [id number] ####[facility] (BEAKER)[address] [place] [address] ANTI-XA (HEPARIN LEVEL)on HEPARIN UNFRACTIONATED (U/ML) IN PPP BY CHROMOGENIC METHOD 0.42 IU/mL Normal 0.3-0.7 [facility] Comment on above: Order Comment: Check anti-Xa level every 6 hours while on heparin infusion, or per protocol. Result Comment: [place] roxaban and Apixaban will interfere with the anti Xa assay used to monitor UFH and LMWH. Performed By: #### L [id number] ####[facility] (BEAKER)[address] [place] [address] HEPARIN UNFRACTIONATED (U/ML) IN PPP BY CHROMOGENIC METHOD 0.20 IU/mL Low 0.3-0.7 [facility] Comment on above: Order Comment: Waive d Testing in the ED is performed under the ED CLIA certificate #[id number]. Result Comment: [place] roxaban and Apixaban will interfere with the anti Xa assay used to monitor UFH and LMWH. Performed By: #### L [id number] #### [facility] (BEAKER) [address] [place] [address] APTTon 07-11-2024 ACTIVATED PARTIAL THROMBOPLASTIN TIME IN PPP BY COAGULATION ASSAY 43.0 Seconds High 25.0-35.0 [facility] Comment on above: Result Comment: Clin ical significance of the APTT is questionable in the presence of heparin. Performed By: #### L [id number] #### [facility] ([facility] [address] [place] [address] BASIC METABOLIC PANELon 06-23 Anion gap [Moles/Vol] 9 mmol/L Normal 7-20 [facility] Comment on above: Performed By: #### L [id number] ####[facility] ([facility] [place] [address] Calcium [Mass/Vol] 8.8 mg/dL Normal 8.6-10.3 [facility] Comment on above: Performed By: #### L [id number] ####[facility] ([facility] [place] [address] Chloride [Moles/Vol] 108 mmol/L High 98-107 [facility] Comment on above: Performed By: #### L [id number] ####[facility] ([facility] [place] [address] CO2 [Moles/Vol] 28 mmol/L Normal 21-31 [facility] Comment on above: Performed By: #### L [id number] ####[facility] ([facility])[address] [place] [address] Creatinine [Mass/Vol] 1.09 mg/dL Normal 0.60-1.20 [facility] Comment on above: Performed By: #### L [id number] ####[facility] (BEAKER)[address] [place] [address] GLOMERULAR FILTRATION RATE ML/MIN/1.73 SQ M.PREDICTED 58.2 mL/min/1.73m*2 Low >60.0 [facility] Comment on above: Result Comment: [facility]???s estimated glomerular filtration rate (eGFR) will [...] of individuals. Performed By: #### L [id number] ####[facility] ([facility])[address] [place] [address] Glucose [Mass/Vol] 113 mg/dL High 70-100 [facility] Comment on above: Performed By: #### L [id number] ####[facility] (BEAKER)[address] [place] [address] Potassium [Moles/Vol] 3.4 mmol/L Low 3.5-5.1 [facility] Comment on above: Performed By: #### L [id number] ####[facility] ([facility])[address] [place] [address] Sodium [Moles/Vol] 142 mmol/L Normal 136-145 [facility] Comment on above: Performed By: #### L [id number] ####[facility] (BEAKER)[address] [place] [address] Urea nitrogen [Mass/Vol] 14 mg/dL Normal 7-25 [facility] Comment on above: Performed By: #### L [id number] ####[facility] (BEAKER)[address] [place] [address] UREA NITROGEN/CREATININE (MASS RATIO) IN SER/PLAS 12.8 Normal [facility] Comment on above: Performed By: #### L [id number] ####[facility] (BEAKER)[address] [place] [address] CBC WITH AUTO DIFFERENTIALon 07-11-2024 Basophils (Bld) [#/Vol] 0.04 10*3/uL Normal 0.00-0.20 [facility] Comment on above: Performed By: #### L [id number] #### [facility] (BEAKER) [address] [place] [address] Basophils/100 WBC (Bld) 0.6 % Normal 0.0-1.0 [facility] Comment on above: Performed By: #### L [id number] #### [facility] (BEAKER) [address] [place] [address] Eosinophils (Bld) [#/Vol] 0.16 10*3/uL Normal 0.00-0.50 [facility] Comment on above: Performed By: #### L [id number] #### [facility] ([facility] [address] [place] [address] Eosinophils/100 WBC (Bld) 2.2 % Normal 0.0-6.0 [facility] Comment on above: Performed By: #### L [id number] #### [facility] ([facility]) [address] [place] [address] Erythrocyte distribution width (RBC) [Ratio] 14.6 % Normal 11.5-15.0 [facility] Comment on above: Performed By: #### L [id number] #### [facility] ([facility]) [address] [place] [address] ERYTHROCYTE MEAN CORPUSCULAR HEMOGLOBIN CONCENTRATION (G/DL) BY AUTOMATED 32.0 g/dL Normal 32.0-35.0 [facility] Comment on above: Performed By: #### L [id number] #### [facility] (BEAKER) [address] [place] [address] Hematocrit (Bld) [Volume fraction] 36.2 % Normal 36.0-48.0 [facility] Comment on above: Performed By: #### L [id number] #### [facility] (BEAKER) [address] [place] [address] Hemoglobin (Bld) [Mass/Vol] 11.6 g/dL Low 12.0-15.0 [facility] Comment on above: Performed By: #### L [id number] #### [facility] ([facility]) [address] [place] [address] Immature granulocytes (Bld) [#/Vol] 0.02 10*3/uL Normal 0.00-0.20 [facility] Comment on above: Performed By: #### L [id number] #### [facility] ([facility]) [address] [address] Immature granulocytes/100 WBC (Bld) 0.3 % Normal 0.0-1.0 [facility] Comment on above: Performed By: #### L [id number] #### [facility] ([facility]) [address] [address] Lymphocytes (Bld) [#/Vol] 2.34 10*3/uL Normal 1.20-4.00 [facility] Comment on above: Performed By: #### L [id number] #### [facility] ([facility]) [address] [address] Lymphocytes/100 WBC (Bld) 32.6 % Normal 20.0-45.0 [facility] Comment on above: Performed By: #### L [id number] #### [facility] ([facility]) [address] [address] MCH (RBC) [Entitic mass] 27.2 pg Normal 27.0-33.0 [facility] Comment on above: Performed By: #### L [id number] #### [facility] ([facility]) [address] [place] [address] MCV (RBC) [Entitic vol] 85.0 fL Normal 82.0-98.0 [facility] Comment on above: Performed By: #### L [id number] #### [facility] (BEAKER) [address] [address] Monocytes (Bld) [#/Vol] 0.49 10*3/uL Normal 0.10-1.00 [facility] Comment on above: Performed By: #### L [id number] #### [facility] ([facility]) [address] [place] [address] Monocytes/100 WBC (Bld) 6.8 % Normal 5.0-12.0 [facility] Comment on above: Performed By: #### L [id number] #### [facility] ([facility]) [address] [place] [address] Neutrophils (Bld) [#/Vol] 4.13 10*3/uL Normal 1.60-7.60 [facility] Comment on above: Performed By: #### L [id number] #### [facility] ([facility]) [address] [place] [address] Neutrophils/100 WBC (Bld) 57.5 % Normal 40.0-72.0 [facility] Comment on above: Performed By: #### L [id number] #### [facility] ([facility]) [address] [place] [address] NRBC (PER 100 WBCS) BY AUTOMATED COUNT 0.0 % Normal 0 [facility] Comment on above: Performed By: #### L [id number] #### [facility] ([facility]) [address] [place] [address] PLATELETS (10*3/UL) IN BLOOD AUTOMATED COUNT 245 10*3/uL Normal 150-400 [facility] Comment on above: Performed By: #### L [id number] #### [facility] ([facility]) [address] [place] [address] RBC (Bld) [#/Vol] 4.26 10*6/uL Normal 3.80-5.00 [facility] Comment on above: Performed By: #### L [id number] #### [facility] ([facility]) [address] [place] [address] WBC (Bld) [#/Vol] 7.18 10*3/uL Normal 4.00-10.60 [facility] Comment on above: Performed By: #### L [id number] #### [facility] QIANA LALA) [place] [address] CONSULTon 07-11-2024 CONSULT -- Attestation signed by [...] Brown is the endocrine surgeon in the [place] area that would be most appropriate and [...] patient is presenting as a transfer from [facility] for the evaluation of chest pain. Past [...] medical history of Abnormal ECG, Diabetes mellitus ([facility]), Hyperlipidemia, Hypertension, Obstructive sleep apnea, Panic attacks, and Stroke ([facility]). Surgical History She has a past surgical [...] Value Ventricular Rate 56 Atrial Rate 56 [place] Interval 180 QRS DURATION 94 QT Interval 430 QTC (more content not included)... Normal [facility] EDPROVon 07-11-2024 EDPROV HPI Chief Complaint [...] Pt states she was trasnfered here from [place] to be transferred to cardiology. Pt states she had a cardiac stent placed last week. She denies fever, coughing, vomiting, abdominal pain. She admits diarrhea. She felt better when given ativan and worse when she was given morphine. She has had her gallbladder removed. History provided by: Patient home economist used: No Chest Pain Associated symptoms: no abdominal pain, no cough, no fever and no vomiting [place] Coma Scale Score: 15 Patient History Past [...] this emergency patient record, the Emergency Physician/LASER SPECIALIST/PA-C attests that all entries made into the electronic medical record by the scribe prior to the Physician/LASER SPECIALIST/PA-C signature reflect an accurate accounting of the evaluation and care rendered by that Emergency Physician/LASER SPECIALIST/PA-C. The Emergency Physician/LASER SPECIALIST/PA-C assumes full responsibility for those entries. The Emergency Physician/LASER SPECIALIST/PA-C also attests that any patient testing or treatment that was instituted by nursing staff. [facility] EDPROV HPI Chief Complaint Patient presents [...] Pt states she was trasnfered here from [place] to be transferred to cardiology. Pt states she had a cardiac stent placed last week. She denies fever, coughing, vomiting, abdominal pain. She admits diarrhea. She felt better when given ativan and worse when she was given morphine. She has had her gallbladder removed. History provided by: Patient home economist used: No Chest Pain Associated symptoms: no abdominal pain, no cough, no fever and no vomiting [place] Coma Scale Score: 15 Patient History Past Medical History: Diagnosis Date Abnormal ECG Diabetes mellitus ([facility]) Hyperlipidemia Hypertension Obstructive sleep apnea Panic attacks Stroke ([facility]) Past Surgical History: Procedure Laterality Date CEREBRAL [...] 07/11/24 1256 NSTEMI (non-ST elevated myocardial infarction) ([facility]) Medical Decision Making Amount and/or Complexity of Data Reviewed Labs: ordered. Decision-making details documented in ED Course. ECG/medicine tests: ordered and independent interpretation performed. Decision-making details documented in ED Course. Risk Drug therapy requiring intensive monitoring for toxicity. Decision regarding hospitalization. Minor surgery with identified risk factors. I, Basilia diallo (more content not included)... Invalid Interpretation Code [facility] POCT GLUCOSE METER UNSOLICIT ED RESULTSon 07-11-2024 Glucose [Mass/Vol] 122 mg/dL High 70-105 [facility] Comment on above: Order Comment: Waive d Testing in the ED is performed under the ED CLIA certificate #[id number]. Result Comment: [email or web address] Performed By: #### L [id number] #### [facility] (BEAKER) [address] [place] [address] PROTIME-INRon 07-11-2024 INR IN PPP BY COAGULATION ASSAY 1.00 Normal 0.90-1.10 [facility] Comment on above: Result Comment: ACCC [...] RANGE. CHEST 1995;108:[id number]. Performed By: #### L [id number] #### [facility] (BEAKER) [address] [place] [address] PROTHROMBIN TIME (PT) IN PPP BY COAGULATION ASSAY 13.2 Seconds Normal 12.3-14.8 [facility] Comment on above: Performed By: #### L [id number] #### [facility] (BEAKER) [address] [place] [address] RENIN ACTIVITYon 07-11-2024 RENIN ACTIVITY <0.1 Normal [facility] Comment on above: Result Comment: INTE RPRETIVE INFORMATION: Renin Activity Adult, Normal sodium diet: Supine ................. 0.2-1.6 ng/mL/hr Upright ................ 0.5-4.0 ng/mL/hr Children, Normal sodium diet, Supine: [place] (1-7 days) ..... 2.0-35.0 ng/mL/hr Cord blood [...] developed and its performance characteristics determined by [facility]. It has not been cleared or approved by the [place] Food and Drug Administration. This test was performed in a CLIA certified laboratory and is intended for clinical purposes. Performed By: [facility] [address] [place] [address] Casino Controller: Navneet Simeon MD, PhD CLIA Number: [id number] Performed By: #### L [id number] #### [facility] (BEAKER) [address] [place] [address] TROPONIN Ion 07-11-2024 Troponin I.cardiac [Mass/Vol] 0.01 ng/mL Normal 0.00-0.04 [facility] Comment on above: Performed By: #### L [id number] ####[facility] ([facility])[address] [place] [address] Office Visiton 07-10-2024 Follow-up visit [id number] RohanAby Cristina 1965 F Date Provider Department Center 07/10/2024 [id number] VAZQUEZ [facility] Family History Problem Relation Age of Onset Lung cancer Mother No Known Problems Father Lung cancer Sister Family Status - Relation Status Age at Mother Father Sister Level of Service:67742 [place] OFFICE/OUTPATIENT ESTABLISHED MOD MDM 30 MIN Reason for Visit and Comments: Coronary Artery Disease [187] Post-Cath [731] Normal [facility] 36on 07-03-2024 36 Post Discharge Call Good morning, I am Ginny Garcia, RN a lead nurse from [facility] [...] Patient Name Aby Madrigal Date 07/03/24 Normal [facility] Telephoneon 07-03-2024 Telephone [id number] Aby Madrigal 1965 F Date Provider Department Center 07/03/2024 Adela-GINNY GARCIA [facility] Family History Problem Relation Age of Onset Lung cancer Mother No Known Problems Father Lung cancer Sister Family Status - Relation Status Age at Mother Father Sister Reason for Visit and Comments: Hospital Follow-up [832] Normal [facility] 30on 07-01-2024 30 The patient is [...] and maintained or improved Outcome: Progressing Normal [facility] BASIC METABOLIC PANELon 06-22 Anion gap [Moles/Vol] 14 mmol/L Normal 7-20 [facility] Comment on above: Performed By: #### L [id number] #### [facility] (BEAKER) [address] [place] [address] Calcium [Mass/Vol] 8.2 mg/dL Low 8.6-10.3 [facility] Comment on above: Performed By: #### L [id number] #### [facility] ([facility]) [address] [place] [address] Chloride [Moles/Vol] 106 mmol/L Normal 98-107 [facility] Comment on above: Performed By: #### L [id number] #### [facility] ([facility]) [address] [place] [address] CO2 [Moles/Vol] 25 mmol/L Normal 21-31 [facility] Comment on above: Performed By: #### L [id number] #### [facility] ([facility]) [address] [place] [address] Creatinine [Mass/Vol] 0.91 mg/dL Normal 0.60-1.20 [facility] Comment on above: Performed By: #### L [id number] #### [facility] ([facility]) [address] [place] [address] GLOMERULAR FILTRATION RATE ML/MIN/1.73 SQ M.PREDICTED 72.2 mL/min/1.73m*2 Normal >60.0 [facility] Comment on above: Result Comment: [facility]???s estimated glomerular filtration rate (eGFR) will [...] individuals. Performed By: #### L [id number] #### [facility] ([facility]) [address] [place] [address] Glucose [Mass/Vol] 101 mg/dL High 70-100 [facility] Comment on above: Performed By: #### L [id number] #### [facility] (BEAKER) [address] [place] [address] Potassium [Moles/Vol] 3.5 mmol/L Normal 3.5-5.1 [facility] Comment on above: Performed By: #### L [id number] #### [facility] (BEAKER) [address] [place] [address] Sodium [Moles/Vol] 141 mmol/L Normal 136-145 [facility] Comment on above: Performed By: #### L [id number] #### [facility] (BEAKER) [address] [place] [address] Urea nitrogen [Mass/Vol] 13 mg/dL Normal 7-25 [facility] Comment on above: Performed By: #### L [id number] #### [facility] ([facility] [address] [place] [address] UREA NITROGEN/CREATININE (MASS RATIO) IN SER/PLAS 14.3 Normal [facility] Comment on above: Performed By: #### L [id number] #### [facility] ([facility]) [address] [place] [address] CBCon 07-01-2024 Erythrocyte distribution width (RBC) [Ratio] 15.4 % High 11.5-15.0 [facility] Comment on above: Performed By: #### L [id number] ####[facility] ([facility])[address] [place] [address] ERYTHROCYTE MEAN CORPUSCULAR HEMOGLOBIN CONCENTRATION (G/DL) BY AUTOMATED 32.1 g/dL Normal 32.0-35.0 [facility] Comment on above: Performed By: #### L [id number] ####[facility] ([facility])[address] [place] [address] Hematocrit (Bld) [Volume fraction] 38.6 % Normal 36.0-48.0 [facility] Comment on above: Performed By: #### L [id number] ####[facility] ([facility])[address] [place] [address] Hemoglobin (Bld) [Mass/Vol] 12.4 g/dL Normal 12.0-15.0 [facility] Comment on above: Performed By: #### L [id number] ####[facility] ([facility])[address] [place] [address] MCH (RBC) [Entitic mass] 26.9 pg Low 27.0-33.0 [facility] Comment on above: Performed By: #### L [id number] ####[facility] ([facility])[address] [place] [address] MCV (RBC) [Entitic vol] 83.7 fL Normal 82.0-98.0 [facility] Comment on above: Performed By: #### L [id number] ####[facility] ([facility])[address] [place] [address] PLATELETS (10*3/UL) IN BLOOD AUTOMATED COUNT 238 10*3/uL Normal 150-400 [facility] Comment on above: Performed By: #### L [id number] ####[facility] ([facility])[address] [facility] [address] RBC (Bld) [#/Vol] 4.61 10*6/uL Normal 3.80-5.00 [facility] Comment on above: Performed By: #### L [id number] ####[facility] ([facility])[address] [place] [address] WBC (Bld) [#/Vol] 7.04 10*3/uL Normal 4.00-10.60 [facility] Comment on above: Performed By: #### L [id number] ####[facility] ([facility])[address] [place] [address] LIPID PANELon 07-01-2024 CHOL/HDL 3.8 mg/dL Normal [facility] Comment on above: Performed By: #### L [id number] #### [facility] (BEAKER) [address] [place] [address] Cholesterol [Mass/Vol] 128 mg/dL Normal 120-200 [facility] Comment on above: Performed By: #### L [id number] #### [facility] ([facility]) [address] [place] [address] Magnesium [Mass/Vol] 87 mg/dL Normal 40-149 [facility] Comment on above: Result Comment: TRIG LYCERIDE REFERENCE RANGE: 20 YEARS AND OLDER CARDIOVASCULAR RISK LESS THAN 150 mg/dL LOW RISK 150 TO 199 mg/dL BORDERLINE RISK 200 mg/dL AND GREATER HIGH RISK Performed By: #### L [id number] #### [facility] ([facility]) [address] [place] [address] Magnesium [Mass/Vol] 77 mg/dL Normal 0-160 [facility] Comment on above: Performed By: #### L [id number] #### [facility] ([facility]) [address] [place] [address] Magnesium [Mass/Vol] 34 mg/dL Normal 23-92 [facility] Comment on above: Performed By: #### L [id number] #### [facility] ([facility]) [address] [place] [address] NON HDL CHOL. (LDL+VLDL) 94 Normal [facility] Comment on above: Performed By: #### L [id number] #### [facility] ([facility]) [address] [place] [address] TOTAL VLDL-C 17 mg/dL Normal 0-40 [facility] Comment on above: Performed By: #### L [id number] #### [facility] ([facility]) [address] [place] [address] MAGNESIUMon 07-01-2024 Magnesium [Mass/Vol] 2.0 mg/dL Normal 1.9-2.7 [facility] Comment on above: Performed By: #### L [id number] ####[facility] ([facility])[address] [facility] [address] NURSNOTEon 07-01-2024 NURSNOTE Discharge instructio ns given, reviewed, questions, answered, signed, copy received. Normal [facility] POCT GLUCOSE METER UNSOLICIT ED RESULTSon 07-01-2024 Glucose [Mass/Vol] 124 mg/dL High 70-105 [facility] Comment on above: Order Comment: Waive d Testing in the ED is performed under the ED CLIA certificate #[id number]. Result Comment: [email or web address] Performed By: #### L [id number] #### [facility] ([facility]) [address] [place] [address] Glucose [Mass/Vol] 106 mg/dL High 70-105 [facility] Comment on above: Order Comment: Waive d Testing in the ED is performed under the ED CLIA certificate #[id number]. Result Comment: [email or web address] Performed By: #### L [id number] #### [facility] ([facility]) [address] , [place] [address] TROPONIN Ion 07-01-2024 Troponin I.cardiac [Mass/Vol] 0.09 ng/mL High 0.00-0.04 [facility] Comment on above: Performed By: #### L [id number] #### [facility] ([facility]) [address] [place] [address] 30on 06-30-2024 30 The patient is Moderately Stable - Low risk of patient condition declining or worsening The patient's goals for the shift include comfort, rest The clinical goals for the shift include stable vitals, comfort Problem: Pain - Adult Goal: Verbalizes/displays adequate comfort level or baseline comfort level Outcome: Not Progressing Normal [facility] 30 Daily Case Managemen t Update [...] PT Recommendations: OT Recommendations: New Consults: Normal [facility] 30 The patient is Moderately Stable - Low risk of patient condition declining or worsening The patient's goals for the shift include COMFORT The clinical goals for the shift include VSS Over the shift, the patient did not make progress toward the following goals. Barriers to progression include . Recommendations to address these barriers include . Normal [facility] ANTI-XA (HEPARIN LEVEL)on HEPARIN UNFRACTIONATED (U/ML) IN PPP BY CHROMOGENIC METHOD 0.64 IU/mL Normal 0.3-0.7 [facility] Comment on above: Order Comment: Check anti-Xa level every 6 hours while on heparin infusion, or per protocol. Result Comment: [place] roxaban and Apixaban will interfere with the anti Xa assay used to monitor UFH and LMWH. Performed By: #### L [id number] #### [facility] ([facility]) [address] [place] [address] BASIC METABOLIC PANELon 08 Anion gap [Moles/Vol] 11 mmol/L Normal 7-20 [facility] Comment on above: Performed By: #### L [id number] ####[facility] ([facility])[address] [place] [address] Calcium [Mass/Vol] 8.3 mg/dL Low 8.6-10.3 [facility] Comment on above: Performed By: #### L [id number] ####[facility] ([facility])[address] [place] [address] Chloride [Moles/Vol] 110 mmol/L High 98-107 [facility] Comment on above: Performed By: #### L [id number] ####[facility] ([facility])[address] [facility] [address] CO2 [Moles/Vol] 26 mmol/L Normal 21-31 [facility] Comment on above: Performed By: #### L [id number] ####[facility] ([facility])[address] [place] [address] Creatinine [Mass/Vol] 0.81 mg/dL Normal 0.60-1.20 [facility] Comment on above: Performed By: #### L [id number] ####[facility] ([facility])[address] [place] [address] GLOMERULAR FILTRATION RATE ML/MIN/1.73 SQ M.PREDICTED 83.1 mL/min/1.73m*2 Normal >60.0 [facility] Comment on above: Result Comment: [facility]???s estimated glomerular filtration rate (eGFR) will [...] of individuals. Performed By: #### L [id number] ####[facility] ([facility])[address] [place] [address] Glucose [Mass/Vol] 110 mg/dL High 70-100 [facility] Comment on above: Performed By: #### L [id number] ####[facility] ([facility])[address] [place] [address] Potassium [Moles/Vol] 3.7 mmol/L Normal 3.5-5.1 [facility] Comment on above: Performed By: #### L [id number] ####[facility] ([facility] [place] [address] Sodium [Moles/Vol] 143 mmol/L Normal 136-145 [facility] Comment on above: Performed By: #### L [id number] ####[facility] ([facility] [place] [address] Urea nitrogen [Mass/Vol] 10 mg/dL Normal 7-25 [facility] Comment on above: Performed By: #### L [id number] ####[facility] ([facility])[address] [place] [address] UREA NITROGEN/CREATININE (MASS RATIO) IN SER/PLAS 12.3 Normal [facility] Comment on above: Performed By: #### L [id number] ####[facility] ([facility])[address] [place] [address] CBCon 06-30-2024 Erythrocyte distribution width (RBC) [Ratio] 15.3 % High 11.5-15.0 [facility] Comment on above: Performed By: #### L [id number] ####[facility] ([facility])[address] [place] [address] ERYTHROCYTE MEAN CORPUSCULAR HEMOGLOBIN CONCENTRATION (G/DL) BY AUTOMATED 31.3 g/dL Low 32.0-35.0 [facility] Comment on above: Performed By: #### L [id number] ####[facility] ([facility])[address] [place] [address] Hematocrit (Bld) [Volume fraction] 36.7 % Normal 36.0-48.0 [facility] Comment on above: Performed By: #### L [id number] ####[facility] ([facility])[address] [place] [address] Hemoglobin (Bld) [Mass/Vol] 11.5 g/dL Low 12.0-15.0 [facility] Comment on above: Performed By: #### L [id number] ####[facility] ([facility])[address] [place] [address] MCH (RBC) [Entitic mass] 26.9 pg Low 27.0-33.0 [facility] Comment on above: Performed By: #### L [id number] ####[facility] ([facility])[address] [place] [address] MCV (RBC) [Entitic vol] 85.7 fL Normal 82.0-98.0 [facility] Comment on above: Performed By: #### L [id number] ####[facility] ([facility] [place] [address] PLATELETS (10*3/UL) IN BLOOD AUTOMATED COUNT 243 10*3/uL Normal 150-400 [facility] Comment on above: Performed By: #### L [id number] ####[facility] ([facility])[address] [place] [address] RBC (Bld) [#/Vol] 4.28 10*6/uL Normal 3.80-5.00 [facility] Comment on above: Performed By: #### L [id number] ####[facility] ([facility])[address] [place] [address] WBC (Bld) [#/Vol] 7.41 10*3/uL Normal 4.00-10.60 [facility] Comment on above: Performed By: #### L [id number] ####[facility] ([facility])[address] [place] [address] CONSULTon 06-30-2024 CONSULT Cardiology Consult Note Reason for Consult: NSTEMI, transfer from [facility] HPI: Aby Madrigal, a 59 y.o. female patient, is transferred from [facility] for continuity of care. Past medical history includes: HTN History of TIA DMII HLD SURESH Overweight Patient reports that 3 days ago, she woke up in the mid of the night with indigestion, and a feeling fullness, but no pressure like chest pain. She presented to [facility], where she was found to be hypertensive. [...] Value Ventricular Rate 71 Atrial Rate 71 W[place] Interval 176 QRS DURATION 92 QT Interval 424 QTC CALCULATION(BAZETT) 460 P Berkley 52 R-Berkley 19 T Wave Berkley 164 Impression Normal sinus rhythm Left ventricular [...] Normal sinu (more content not included)... Normal [facility] HPon 06-30-2024 H&P reviewed. The patient was examined and there are no changes to the H&P. 59 y.o. year old female with a PMHx significant for DM2, hypertension presents a direct mission from [facility] with a chief complaint of chest pain [...] to proceed. Signed, Yris Oakley MD PGY-4 Educational Therapist Pager: [phone] Normal [facility] POCT GLUCOSE METER UNSOLICIT ED RESULTSon 06-30-2024 Glucose [Mass/Vol] 170 mg/dL High 70-105 [facility] Comment on above: Order Comment: Waive d Testing in the ED is performed under the ED CLIA certificate #[id number]. Result Comment: [email or web address] Performed By: #### L [id number] #### [facility] ([facility]) [address] [place] [address] Glucose [Mass/Vol] 129 mg/dL High 70-105 [facility] Comment on above: Order Comment: Waive d Testing in the ED is performed under the ED CLIA certificate #[id number]. Result Comment: [email or web address] Performed By: #### L [id number] #### [facility] ([facility]) [address] [place] [address] Glucose [Mass/Vol] 167 mg/dL High 70-105 [facility] Comment on above: Order Comment: Waive d Testing in the ED is performed under the ED CLIA certificate #[id number]. Result Comment: [email or web address] Performed By: #### L [id number] #### [facility] ([facility]) [address] [place] [address] TROPONIN Ion 06-30-2024 Troponin I.cardiac [Mass/Vol] 0.07 ng/mL High 0.00-0.04 [facility] Comment on above: Performed By: #### L [id number] #### [facility] ([facility]) [address] [place] [address] Troponin I.cardiac [Mass/Vol] 0.10 ng/mL High 0.00-0.04 [facility] Comment on above: Performed By: #### L [id number] #### [facility] ([facility]) [address] [place] [address] Troponin I.cardiac [Mass/Vol] 0.11 ng/mL Critically high 0.00-0.04 [facility] Comment on above: Result Comment: M-TR OPONIN INITIAL CRITICAL HIGH; RESPUN AND RETESTED Performed By: #### L [id number] ####[facility] ([facility])[address] [place] [address] 30on 06-29-2024 30 The patient is Moderately Stable - Low risk of patient condition declining or worsening The patient's goals for the shift include COMFORT The clinical goals for the shift include VSS Normal [facility] APTTon 06-29-2024 ACTIVATED PARTIAL THROMBOPLASTIN TIME IN PPP BY COAGULATION ASSAY 34.5 Seconds Normal 25.0-35.0 [facility] Comment on above: Order Comment: Basel ine aPTT before initiating heparin infusion. Result Comment: Clin ical significance of the APTT is questionable in the presence of heparin. Performed By: #### L [id number] #### [facility] ([facility]) [address] [place] [address] B-TYPE NATRIURETIC PEPTIDEon 06-29-2024 Natriuretic peptide B (Bld) [Mass/Vol] 222 pg/mL High 0-100 [facility] Comment on above: Performed By: #### L [id number] ####[facility] ([facility])[address] [place] [address] CBC WITH AUTO DIFFERENTIALon 06-29-2024 Basophils (Bld) [#/Vol] 0.05 10*3/uL Normal 0.00-0.20 [facility] Comment on above: Performed By: #### L [id number] ####[facility] ([facility])[address] [place] [address] Basophils/100 WBC (Bld) 0.6 % Normal 0.0-1.0 [facility] Comment on above: Performed By: #### L [id number] ####[facility] ([facility])[address] [place] [address] Eosinophils (Bld) [#/Vol] 0.18 10*3/uL Normal 0.00-0.50 [facility] Comment on above: Performed By: #### L [id number] ####[facility] ([facility])[address] [place] [address] Eosinophils/100 WBC (Bld) 2.1 % Normal 0.0-6.0 [facility] Comment on above: Performed By: #### L [id number] ####[facility] ([facility])[address] [place] [address] Erythrocyte distribution width (RBC) [Ratio] 14.9 % Normal 11.5-15.0 [facility] Comment on above: Performed By: #### L [id number] ####[facility] ([facility])[address] [place] [address] ERYTHROCYTE MEAN CORPUSCULAR HEMOGLOBIN CONCENTRATION (G/DL) BY AUTOMATED 32.9 g/dL Normal 32.0-35.0 [facility] Comment on above: Performed By: #### L [id number] ####[facility] ([facility])[address] [place] [address] Hematocrit (Bld) [Volume fraction] 35.9 % Low 36.0-48.0 [facility] Comment on above: Performed By: #### L [id number] ####[facility] ([facility])[address] [place] [address] Hemoglobin (Bld) [Mass/Vol] 11.8 g/dL Low 12.0-15.0 [facility] Comment on above: Performed By: #### L [id number] ####[facility] ([facility])[address] [place] [address] Immature granulocytes (Bld) [#/Vol] 0.03 10*3/uL Normal 0.00-0.20 [facility] Comment on above: Performed By: #### L [id number] ####[facility] ([facility])[address] [place] [address] Immature granulocytes/100 WBC (Bld) 0.3 % Normal 0.0-1.0 [facility] Comment on above: Performed By: #### L [id number] ####[facility] ([facility])[address] [place] [address] Lymphocytes (Bld) [#/Vol] 2.02 10*3/uL Normal 1.20-4.00 [facility] Comment on above: Performed By: #### L [id number] ####[facility] ([facility])[address] [place] [address] Lymphocytes/100 WBC (Bld) 23.5 % Normal 20.0-45.0 [facility] Comment on above: Performed By: #### L [id number] ####[facility] ([facility])[address] [place] [address] MCH (RBC) [Entitic mass] 27.2 pg Normal 27.0-33.0 [facility] Comment on above: Performed By: #### L [id number] ####[facility] ([facility])[address] [place] [address] MCV (RBC) [Entitic vol] 82.7 fL Normal 82.0-98.0 [facility] Comment on above: Performed By: #### L [id number] ####[facility] ([facility])[address] [place] [address] Monocytes (Bld) [#/Vol] 0.56 10*3/uL Normal 0.10-1.00 [facility] Comment on above: Performed By: #### L [id number] ####[facility] ([facility])[address] [place] [address] Monocytes/100 WBC (Bld) 6.5 % Normal 5.0-12.0 [facility] Comment on above: Performed By: #### L [id number] ####[facility] ([facility])[address] [place] [address] Neutrophils (Bld) [#/Vol] 5.74 10*3/uL Normal 1.60-7.60 [facility] Comment on above: Performed By: #### L [id number] ####[facility] ([facility])[address] [place] [address] Neutrophils/100 WBC (Bld) 67.0 % Normal 40.0-72.0 [facility] Comment on above: Performed By: #### L [id number] ####[facility] ([facility])[address] [place] [address] NRBC (PER 100 WBCS) BY AUTOMATED COUNT 0.0 % Normal 0 [facility] Comment on above: Performed By: #### L [id number] ####[facility] ([facility])[address] [place] [address] PLATELETS (10*3/UL) IN BLOOD AUTOMATED COUNT 233 10*3/uL Normal 150-400 [facility] Comment on above: Performed By: #### L [id number] ####[facility] ([facility])[address] [place] [address] RBC (Bld) [#/Vol] 4.34 10*6/uL Normal 3.80-5.00 [facility] Comment on above: Performed By: #### L [id number] ####[facility] ([facility])[address] [place] [address] WBC (Bld) [#/Vol] 8.58 10*3/uL Normal 4.00-10.60 [facility] Comment on above: Performed By: #### L [id number] ####[facility] ([facility] [place] [address] COMPREHENSIVE METABOLIC PANE Alec 06-29-2024 Albumin [Mass/Vol] 3.8 g/dL Normal 3.5-5.7 [facility] Comment on above: Performed By: #### L [id number] #### [facility] ([facility]) [address] [place] [address] ALP [Catalytic activity/Vol] 64 U/L Normal 34-104 [facility] Comment on above: Performed By: #### L [id number] #### [facility] ([facility]) [address] [place] [address] ALT [Catalytic activity/Vol] 35 U/L Normal 7-52 [facility] Comment on above: Performed By: #### L [id number] #### [facility] ([facility]) [address] [place] [address] Anion gap [Moles/Vol] 12 mmol/L Normal 7-20 [facility] Comment on above: Performed By: #### L [id number] #### [facility] ([facility]) [address] [place] [address] AST [Catalytic activity/Vol] 21 U/L Normal 13-39 [facility] Comment on above: Performed By: #### L [id number] #### [facility] ([facility]) [address] [place] [address] Bilirubin [Mass/Vol] 0.4 mg/dL Normal 0.3-1.0 [facility] Comment on above: Performed By: #### L [id number] #### [facility] ([facility]) [address] [place] [address] Calcium [Mass/Vol] 8.5 mg/dL Low 8.6-10.3 [facility] Comment on above: Performed By: #### L [id number] #### [facility] ([facility]) [address] [place] [address] Chloride [Moles/Vol] 112 mmol/L High 98-107 [facility] Comment on above: Performed By: #### L [id number] #### [facility] ([facility]) [address] [place] [address] CO2 [Moles/Vol] 22 mmol/L Normal 21-31 [facility] Comment on above: Performed By: #### L [id number] #### [facility] ([facility]) [address] [place] [address] Creatinine [Mass/Vol] 0.92 mg/dL Normal 0.60-1.20 [facility] Comment on above: Performed By: #### L [id number] #### [facility] ([facility]) [address] [place] [address] GLOMERULAR FILTRATION RATE ML/MIN/1.73 SQ M.PREDICTED 71.3 mL/min/1.73m*2 Normal >60.0 [facility] Comment on above: Result Comment: [facility]???s estimated glomerular filtration rate (eGFR) will [...] individuals. Performed By: #### L [id number] #### [facility] ([facility]) [address] [address] Glucose [Mass/Vol] 108 mg/dL High 70-100 [facility] Comment on above: Performed By: #### L [id number] #### [facility] ([facility]) [address] [place] [address] Potassium [Moles/Vol] 3.7 mmol/L Normal 3.5-5.1 [facility] Comment on above: Performed By: #### L [id number] #### [facility] ([facility]) [address] [address] Protein [Mass/Vol] 6.1 g/dL Normal 6.0-8.3 [facility] Comment on above: Performed By: #### L [id number] #### [facility] ([facility]) [address] [place] [address] Sodium [Moles/Vol] 142 mmol/L Normal 136-145 [facility] Comment on above: Performed By: #### L [id number] #### [facility] ([facility]) [address] [place] [address] Urea nitrogen [Mass/Vol] 11 mg/dL Normal 7-25 [facility] Comment on above: Performed By: #### L [id number] #### [facility] ([facility]) [address] [place] [address] UREA NITROGEN/CREATININE (MASS RATIO) IN SER/PLAS 12.0 Normal [facility] Comment on above: Performed By: #### L [id number] #### [facility] ([facility]) [address] [place] [address] MAGNESIUMon 06-29-2024 Magnesium [Mass/Vol] 1.7 mg/dL Low 1.9-2.7 [facility] Comment on above: Performed By: #### L [id number] ####[facility] ([facility])[address] [place] [address] PHOSPHORUSon 06-29-2024 Magnesium [Mass/Vol] 2.9 mg/dL Normal 2.5-5.0 [facility] Comment on above: Performed By: #### L [id number] #### [facility] ([facility]) [address] [address] PROTIME-INRon 06-29-2024 INR IN PPP BY COAGULATION ASSAY 0.99 Normal 0.90-1.10 [facility] Comment on above: Result Comment: ACCC [...] RANGE. CHEST 1995;108:[id number]. Performed By: #### L [id number] #### [facility] ([facility]) [address] [place] [address] PROTHROMBIN TIME (PT) IN PPP BY COAGULATION ASSAY 13.1 Seconds Normal 12.3-14.8 [facility] Comment on above: Performed By: #### L [id number] #### [facility] ([facility]) [address] [place] [address] TROPONIN Ion 06-29-2024 Troponin I.cardiac [Mass/Vol] 0.10 ng/mL High 0.00-0.04 [facility] Comment on above: Performed By: #### L [id number] #### [facility] ([facility]) [address] [place] [address] Office Visiton 06-21-2024 Follow-up visit [id number] Aby Madrigal 1965 F Date Provider Department Center 06/21/2024 GOMEZ KENDALL RIAZ [place] Family History Problem Relation Age of Onset Lung cancer Mother No Known Problems Father Lung cancer Sister Family Status - Relation Status Age at Mother Father Sister Level of Service:[address] [place] OFFICE/OUTPATIENT ESTABLISHED MOD MDM 30 MIN Normal [facility] Office Visiton 05-26-2024 Follow-up visit [id number] Sanjana Madrigalty S 1965 F Date Provider Department Center 05/26/2024 BIJAN LAWLER RIAZ [place] Family History Problem Relation Age of Onset Lung cancer Mother No Known Problems Father Lung cancer Sister Family Status - Relation Status Age at Mother Father Sister Level of Service:[address] [place] OFFICE/OUTPATIENT NEW MODERATE MDM 45 MINUTES Normal [facility] Outside Colonoscopyon 2022 Outside Colonoscopy [id number] 0CD:127 Normal [facility] Reminderson 11-27-2022 Reminders - From: Na Hayes LPN To: GSN - Clinical; Sent: 11/27/2022 12:46:10 EST Show up: 10/25/2032 07:00:00 EST Subject: colonoscopy recall Due Date/Time: 11/25/2032 07:00:00 EST Reminder/Recall Patient is due for screening colonoscopy 11/25/2032. Normal [facility] Lab Reportson 11-24-2022 Lab Reports [id number] 0CD:127 Normal [facility] Covid-19 PCR ([facility])on 10-24 SARS-CoV-2 (COVID-19) RNA BECK+probe Ql (Unsp spec) Not detected Normal NOT DETECTED [facility] Comment on above: Result Comment: This test is not yet approved or cleared by the [place] FDA. When there are no FDA-approved or cleared tests available, and other criteria are met, FDA can make tests available under an emergency access mechanism called an Emergency Use Authorization (EUA). The EUA for this test is supported by the [place] of Health and Human Service's (HHS's) declaration [...] consistent with SARS-CoV-2. Performed By: #### [facility] #### [facility] [address] [place] [address] Dr. Rich Cutler Consent for Procedure/Surger yon 10-07-2022 Consent for Procedure/Surgery [id number] 0CD:127 Normal [facility] Ambulatory Visit Summaryon 1 12-06-2021 [...] : DR KENDRA MORAN . Admission #: [id number] Family : Order #: [id number] CLICK HERE TO VIEW EXAM RADIOLOGY REPORT [...] chronic thrombus visualized Compressibility: Normal Flow: Normal Expert Witness: Dist/med calf 3.3mm with 0s reflux. Tech Note: Incompetent SFJ and GSV. Patent varicose vein mid/med calf 2.9mm with 0s reflux. Patent varicose vein prox/post calf 3.8mm with 0s reflux. Patent varicose vein dist/med thigh 3.8mm with 2.0s reflux. CONCLUSION: 1. Mild right and dstv-ky-icahtzyz left great saphenous vein venous insufficiency with dilatation 2. Left saphenous popliteal junction reflux 3. Mild left anterior accessory saphenous vein venous insufficiency without dilatation 4. Small bilateral incompetent varicose veins Dictated by: Adelia Lezama MD on 10/02/2022 at 13:36 Approved by: Adelia Lezama MD on 10/02/2022 at 13:52 Normal [facility] ECHOCARDIO M/2D COMPLETEon 1 11-30-2021 ECHOCARDIO M/2D COMPLETE Patient: ABY MADRIGAL Exam Date: 09/30/2022 : 1965 Gender:F Ordering : DR KENDRA MORAN . Admission #: [id number] Family : Order #: [id number] CLICK HERE TO VIEW EXAM ECHOCARDIOGRAM REPORT [...] M.D. on 09/30/2022 at 18:37 Normal [facility] BNPon 09-24-2022 Natriuretic peptide B (Bld) [Mass/Vol] 501.0 pg/mL Normal <=900.0 [facility] Comment on above: Performed By: #### C VDTB #### [facility] [address] [place] [address] Dr. Rich Cutler CBC AUTO DIFFon 09-24-2022 BASO # 0.1 103/ul Normal 0.0-0.1 [facility] Comment on above: Performed By: #### C VDTB #### [facility] [address] [place] [address] Dr. Rich Cutler Basophils/100 WBC (Bld) 0.8 % Normal 0.2-2.0 [facility] Comment on above: Performed By: #### C VDTBH #### [facility] [address] [place] [address] Dr. Rich Cutler EO # 0.3 103/ul Normal 0.0-0.7 [facility] Comment on above: Performed By: #### C VDTBH #### [facility] [address] [place] [address] Dr. Rich Cutler Eosinophils/100 WBC (Bld) 3.4 % Normal 0.9-7.0 [facility] Comment on above: Performed By: #### C VDTBH #### [facility] [address] [place] [address] Dr. Rich Cutler Erythrocyte distribution width (RBC) [Ratio] 13.3 % Normal 11.0-15.0 [facility] Comment on above: Performed By: #### C VDTBH #### [facility] [address] [place] [address] Dr. Rich Cutler Hematocrit (Bld) [Volume fraction] 40.5 % Normal 36.0-48.0 [facility] Comment on above: Performed By: #### C VDTBH #### [facility] [address] [place] [address] Dr. Rich Cutler Hemoglobin (Bld) [Mass/Vol] 13.1 g/dL Normal 12.0-16.0 [facility] Comment on above: Performed By: #### C VDTBH #### [facility] [address] [place] [address] Dr. Rich Cutler IG # 0.02 10e3/ul Normal 0.00-0.03 [facility] Comment on above: Performed By: #### C VDTBH #### [facility] [address] [place] [address] Dr. Rich Cutler IG % 0.3 % Normal 0.0-0.5 [facility] Comment on above: Performed By: #### C VDTBH #### [facility] [address] [place] [address] Dr. Rich Cutler LYMPH # 2.7 103/ul Normal 1.2-3.8 [facility] Comment on above: Performed By: #### C VDTBH #### [facility] [address] [place] [address] Dr. Rich Cutler Lymphocytes/100 WBC (Bld) 35.4 % Normal 20.5-60.0 [facility] Comment on above: Performed By: #### C VDTBH #### [facility] [address] [place] [address] Dr. Rich Cutler MANUAL DIFF REQ NO Normal [facility] Comment on above: Performed By: #### C VDTBH #### [facility] [address] [place] [address] Dr. Rich Cutler MCH (RBC) [Entitic mass] 28.2 pg Normal 26.7-34.0 [facility] Comment on above: Performed By: #### C VDTBH #### [facility] [address] [place] [address] Dr. Rich Cutler MCHC (RBC) [Mass/Vol] 32.3 g/dL Normal 29.9-35.2 [facility] Comment on above: Performed By: #### C VDTBH #### [facility] [address] [place] [address] Dr. Rich Cutler MCV (RBC) [Entitic vol] 87.3 fL Normal 81.0-99.0 [facility] Comment on above: Performed By: #### C VDTBH #### [facility] [address] [place] [address] Dr. Rich Cutler MONO # 0.5 103/ul Normal 0.3-0.8 [facility] Comment on above: Performed By: #### C VDTBH #### [facility] [address] [place] [address] Dr. Rich Cutler Monocytes/100 WBC (Bld) 6.5 % Normal 1.7-12.0 [facility] Comment on above: Performed By: #### C VDTBH #### [facility] [address] [place] [address] Dr. Rich Cutler NEUT # 4.1 103/ul Normal 1.4-6.5 [facility] Comment on above: Performed By: #### C VDTBH #### [facility] [address] [place] [address] Dr. Rich Cutler Neutrophils/100 WBC (Bld) 53.6 % Normal 43.0-75.0 [facility] Comment on above: Performed By: #### C VDTBH #### [facility] [address] [place] [address] Dr. Rich Cutler Platelet mean volume (Bld) [Entitic vol] 10.3 fL Normal 9.5-13.5 [facility] Comment on above: Performed By: #### C VDTBH #### [facility] [address] [place] [address] Dr. Rich Cutler PLT 283 103/ul Normal 150-450 [facility] Comment on above: Performed By: #### C VDTBH #### [facility] [address] [place] [address] Dr. Rich Cutler RBC 4.64 106/ul Normal 4.20-5.40 [facility] Comment on above: Performed By: #### C VDTBH #### [facility] [address] [place] [address] Dr. Rich Cutler WBC 7.6 103/ul Normal 4.0-11.0 [facility] Comment on above: Performed By: #### C VDTBH #### [facility] [address] [place] [address] Dr. Rich Cutler INSULINon 09-24-2022 Insulin 15.1 uIU/mL Normal 2.6-24.9 [facility] Comment on above: Performed By: #### C VDTBH #### [facility] [address] [place] [address] Dr. Rich Cutler PROF 14(COMP METB)on 022 Albumin [Mass/Vol] 3.5 g/dL Normal 3.4-5.[address] [facility] Comment on above: Performed By: #### C VDTBH #### [facility] [address] [place] [address] Dr. Rich Cutler Albumin/Globulin [Mass ratio] 1.0 {ratio} Normal [facility] Comment on above: Performed By: #### C VDTBH #### [facility] [address] [place] [address] Dr. Rich Cutler ALP [Catalytic activity/Vol] 91 U/L Normal 46-116 [facility] Comment on above: Performed By: #### C VDTBH #### [facility] [address] [place] [address] Dr. Rich Cutler ALT [Catalytic activity/Vol] 47 U/L Normal 14-59 [facility] Comment on above: Performed By: #### C VDTBH #### [facility] [address] [address] [address] Rich Cutler Anion gap [Moles/Vol] 11.7 mmol/L Normal [facility] Comment on above: Performed By: #### C VDTBH #### [facility] [address] [address] [address] Rich Cutler AST [Catalytic activity/Vol] 24 U/L Normal 15-37 [facility] Comment on above: Performed By: #### C VDTBH #### [facility] [address] [address] [address] Rich Cutler Bilirubin [Mass/Vol] 0.2 mg/dL Normal 0.2-1.0 [facility] Comment on above: Performed By: #### C VDTBH #### [facility] [address] [place] [address] Dr. Rich Cutler Calcium [Mass/Vol] 8.9 mg/dL Normal 8.5-10.[address] [facility] Comment on above: Performed By: #### C VDTBH #### [facility] [address] [place] [address] Dr. Rich Cutler Chloride [Moles/Vol] 105 mmol/L Normal 98-107 [facility] Comment on above: Performed By: #### C VDTBH #### [facility] [address] [place] [address] Dr. Rich Cutler CO2 [Moles/Vol] 28.1 mmol/L Normal 21.0-32.0 [facility] Comment on above: Performed By: #### C VDTBH #### [facility] [address] [place] [address] Dr. Rich Cutler Creatinine [Mass/Vol] 1.13 mg/dL Critically high 0.55-1.02 [facility] Comment on above: Performed By: #### C VDTBH #### [facility] [address] [place] [address] Dr. Rich Cutler EGFR-AF UGANDAN 60 mL/min/1.73m2 Normal >=60 [facility] Comment on above: Performed By: #### C VDTBH #### [facility] [address] [place] [address] Dr. Rich Cutler EGFR-NON AF UGANDAN 49 mL/min/1.73m2 Critically low >=60 [facility] Comment on above: Performed By: #### C VDTBH #### [facility] [address] [place] [address] Dr. Rich Cutler Globulin (S) [Mass/Vol] 3.5 g/dL Normal [facility] Comment on above: Performed By: #### C VDTBH #### [facility] [address] [place] [address] Dr. Rich Cutler Glucose [Mass/Vol] 119 mg/dL Critically high 74-106 [facility] Comment on above: Performed By: #### C VDTBH #### [facility] [address] [place] [address] Dr. Rich Cutler Potassium [Moles/Vol] 3.8 mmol/L Normal 3.5-5.1 [facility] Comment on above: Performed By: #### C VDTBH #### [facility] [address] [place] [address] Dr. Rich Cutler Protein [Mass/Vol] 7.0 g/dL Normal 6.4-8.2 [facility] Comment on above: Performed By: #### C VDTBH #### [facility] [address] [place] [address] Dr. Rich Cutler Sodium [Moles/Vol] 141 mmol/L Normal 136-145 [facility] Comment on above: Performed By: #### C VDTBH #### [facility] [address] [place] [address] Dr. Rich Cutler Urea nitrogen [Mass/Vol] 16.0 mg/dL Normal 7.0-18.0 [facility] Comment on above: Performed By: #### C VDTBH #### [facility] [address] [place] [address] Dr. Rich Cutler Urea nitrogen/Creatinine [Mass ratio] 14.2 mg/mg Normal [facility] Comment on above: Performed By: #### C VDTBH #### [facility] [address] [place] [address] Dr. Rich Cutler TROPONIN, HIGH SENSITIVITYon 09-24-2022 HSTROP 10.6 pg/mL Normal 4.0-51.3 [facility] Comment on above: Result Comment: CUT- OFF POINTS HAVE BEEN ESTABLISHED BASED ON THE FOURTH UNIVERSAL DEFINITIONS OF MYOCARDIAL INFARCTION. THE UPPER REFERENCE LIMIT (URL) OF TROPONIN, DEFINED THE 99TH PERCENTILE OF cTnI DISTRIBUTION IN A REFERENCE POPULATION, HAS BEEN CONFIRMED THE DECISION THRESHOLD FOR MD DIAGNOSIS. Performed By: #### C VDTBH #### [facility] [address] [place] [address] Dr. Rich Cutler XR CHEST 1 Von [...] UMM HUMPHRIES Date: 2022-09-24 04:08 Normal [facility] CBC AUTO DIFFon 09-23-2022 BASO # 0.1 103/ul Normal 0.0-0.1 [facility] Comment on above: Performed By: #### C BC #### [facility] [address] [place] [address] Dr. Rich Cutler Basophils/100 WBC (Bld) 0.8 % Normal 0.2-2.0 [facility] Comment on above: Performed By: #### C BC #### [facility] [address] [place] [address] Dr. Rich Cutler EO # 0.2 103/ul Normal 0.0-0.7 [facility] Comment on above: Performed By: #### C BC #### [facility] [address] [place] [address] Dr. Rich Cutler Eosinophils/100 WBC (Bld) 3.5 % Normal 0.9-7.0 [facility] Comment on above: Performed By: #### C BC #### [facility] [address] [place] [address] Dr. Rich Cutler Erythrocyte distribution width (RBC) [Ratio] 13.4 % Normal 11.0-15.0 [facility] Comment on above: Performed By: #### C BC #### [facility] [address] [place] [address] Dr. Rich Cutler Hematocrit (Bld) [Volume fraction] 42.3 % Normal 36.0-48.0 [facility] Comment on above: Performed By: #### C BC #### [facility] [address] [place] [address] Dr. Rich Cutler Hemoglobin (Bld) [Mass/Vol] 13.4 g/dL Normal 12.0-16.0 [facility] Comment on above: Performed By: #### C BC #### [facility] [address] [place] [address] Dr. Rich Cutler IG # 0.03 10e3/ul Normal 0.00-0.03 [facility] Comment on above: Performed By: #### C BC #### [facility] [address] [place] [address] Dr. Rich Cutler IG % 0.5 % Normal 0.0-0.5 [facility] Comment on above: Performed By: #### C BC #### [facility] [address] [place] [address] Dr. Rich Cutler LYMPH # 2.9 103/ul Normal 1.2-3.8 [facility] Comment on above: Performed By: #### C BC #### [facility] [address] [place] [address] Dr. Rich Cutler Lymphocytes/100 WBC (Bld) 44.0 % Normal 20.5-60.0 [facility] Comment on above: Performed By: #### C BC #### [facility] [address] [place] [address] Dr. Rich Cutler MANUAL DIFF REQ NO Normal [facility] Comment on above: Performed By: #### C BC #### [facility] [address] [place] [address] Dr. Rich Cutler MCH (RBC) [Entitic mass] 28.4 pg Normal 26.7-34.0 [facility] Comment on above: Performed By: #### C BC #### [facility] [address] [place] [address] Dr. Rich Cutler MCHC (RBC) [Mass/Vol] 31.7 g/dL Normal 29.9-35.2 [facility] Comment on above: Performed By: #### C BC #### [facility] [address] [place] [address] Dr. Rich Cutler MCV (RBC) [Entitic vol] 89.6 fL Normal 81.0-99.0 [facility] Comment on above: Performed By: #### C BC #### [facility] [address] [place] [address] Dr. Rich Cutler MONO # 0.4 103/ul Normal 0.3-0.8 [facility] Comment on above: Performed By: #### C BC #### [facility] [address] [place] [address] Dr. Rich Cutler Monocytes/100 WBC (Bld) 6.6 % Normal 1.7-12.0 [facility] Comment on above: Performed By: #### C BC #### [facility] [address] [place] [address] Dr. Rich Cutler NEUT # 2.9 103/ul Normal 1.4-6.5 [facility] Comment on above: Performed By: #### C BC #### [facility] [address] [place] [address] Dr. Rich Cutler Neutrophils/100 WBC (Bld) 44.6 % Normal 43.0-75.0 [facility] Comment on above: Performed By: #### C BC #### [facility] [address] [address] [address] Rich Cutler Platelet mean volume (Bld) [Entitic vol] 11.0 fL Normal 9.5-13.5 [facility] Comment on above: Performed By: #### C BC #### [facility] [address] [place] [address] Dr. Rich Cutler PLT 272 103/ul Normal 150-450 [facility] Comment on above: Performed By: #### C BC #### [facility] [address] [address] [address] Rich Cutler RBC 4.72 106/ul Normal 4.20-5.40 [facility] Comment on above: Performed By: #### C BC #### [facility] [address] [place] [address] Dr. Rich Cutler WBC 6.5 103/ul Normal 4.0-11.0 [facility] Comment on above: Performed By: #### C BC #### [facility] [address] [place] [address] Dr. Rich Cutler FREE THYROXINE INDEX T7on FTI 2.16 Normal 1.30-4.50 [facility] Comment on above: Performed By: #### L IPID, TSH, T7, CMP #### [facility] [address] [place] [address] Dr. Rich Cutler T3U 30.0 % Normal 30.0-39.0 [facility] Comment on above: Performed By: #### L IPID, TSH, T7, CMP #### [facility] [address] [place] [address] Dr. Rich Cutler T4 [Mass/Vol] 7.20 ug/dL Normal 4.80-13.90 [facility] Comment on above: Performed By: #### L IPID, TSH, T7, CMP #### [facility] [address] [place] [address] Dr. Rich Cutler GLYCOHEMOGLOBIN A1Con 2021 ADA RECOMMENDATION SEE BELOW Normal [facility] Comment on above: Result Comment: ADA RECOMMENDED LIMIT 4.0 - 6.0 ADA THERAPEUTIC TARGET < 7.0 ACTION SUGGESTED > 7.0 Performed By: #### A 1C #### [facility] [address] [address] [address] Rich Cutler Glucose [Mass/Vol] 128 mg/dL Normal [facility] Comment on above: Performed By: #### A 1C #### [facility] [address] [address] [address] Rich Cutler HbA1c (Bld) [Mass fraction] 6.1 % Normal 4.5-6.2 [facility] Comment on above: Performed By: #### A 1C #### [facility] [address] [place] [address] Dr. Rich Cutler IRONon 09-23-2022 Iron [Mass/Vol] 64.0 ug/dL Normal 50.0-170.0 [facility] Comment on above: Performed By: #### C VDTB #### [facility] [address] [place] [address] Dr. Rich Cutler LIPID PROFILEon 09-23-2022 CHOL-HDL RATIO NORM SEE BELOW Normal [facility] Comment on above: Result Comment: 3.3 - 4.4 LOW RISK 4.4 - 7.1 AVERAGE RISK 7.1 - 11.0 MODERATE RISK >11.0 HIGH RISK Performed By: #### L IPID, TSH, T7, CMP #### [facility] [address] [place] [address] Dr. Rich Cutler Cholesterol [Mass/Vol] 237 mg/dL Critically high <=200 [facility] Comment on above: Performed By: #### L IPID, TSH, T7, CMP #### [facility] [address] [address] [address] Rich Cutler Cholesterol in HDL [Mass/Vol] 44 mg/dL Normal 40-60 [facility] Comment on above: Performed By: #### L IPID, TSH, T7, CMP #### [facility] [address] [address] [address] Rich Cutler Cholesterol in LDL [Mass/Vol] 172.2 mg/dL Normal [facility] Comment on above: Performed By: #### L IPID, TSH, T7, CMP #### [facility] [address] [address] [address] Rich Cutler Cholesterol.total/C holesterol in HDL [Mass ratio] 5.4 {ratio} Normal [facility] Comment on above: Performed By: #### L IPID, TSH, T7, CMP #### [facility] [address] [address] [address] Rich Cutler HDL NORMAL > or = 60 mg/dl - LO W CARDIOVASCULAR RISK <40 mg/dl - HIGH CARDIOVASCULAR RISK Normal [facility] Comment on above: Performed By: #### L IPID, TSH, T7, CMP #### [facility] [address] [address] [address] Rich Cutler LDL CALC NORMAL SEE BELOW Normal [facility] Comment on above: Result Comment: <100 mg/dl OPTIMAL 100 - 129 mg/dl NEAR OR ABOVE OPTIMAL 130 - 159 mg/dl BORDERLINE HIGH 160 - 189 mg/dl HIGH >190 mg/dl VERY HIGH Performed By: #### L IPID, TSH, T7, CMP #### [facility] [address] [address] [address] Rich Cutler Triglyceride [Mass/Vol] 104 mg/dL Normal <=150 [facility] Comment on above: Performed By: #### L IPID, TSH, T7, CMP #### [facility] [address] [address] [address] Rich Cutler VLDL CALC 20.8 mg/dL Normal [facility] Comment on above: Performed By: #### L IPID, TSH, T7, CMP #### [facility] [address] [address] [address] Rich Cutler PROF 14(COMP METB)on 022 Albumin [Mass/Vol] 3.5 g/dL Normal 3.4-5.[address] [facility] Comment on above: Performed By: #### L IPID, TSH, T7, CMP #### [facility] [address] [address] [address] Rich Cutler Albumin/Globulin [Mass ratio] 0.9 {ratio} Normal [facility] Comment on above: Performed By: #### L IPID, TSH, T7, CMP #### [facility] [address] [place] [address] Dr. Rich Cutler ALP [Catalytic activity/Vol] 93 U/L Normal 46-116 [facility] Comment on above: Performed By: #### L IPID, TSH, T7, CMP #### [facility] [address] [place] [address] Dr. Rich Cutler ALT [Catalytic activity/Vol] 44 U/L Normal 14-59 [facility] Comment on above: Performed By: #### L IPID, TSH, T7, CMP #### [facility] [address] [place] [address] Dr. Rich Cutler Anion gap [Moles/Vol] 8.5 mmol/L Normal [facility] Comment on above: Performed By: #### L IPID, TSH, T7, CMP #### [facility] [address] [place] [address] Dr. Rich Cutler AST [Catalytic activity/Vol] 26 U/L Normal 15-37 [facility] Comment on above: Performed By: #### L IPID, TSH, T7, CMP #### [facility] [address] [place] [address] Dr. Rich Cutler Bilirubin [Mass/Vol] 0.3 mg/dL Normal 0.2-1.0 [facility] Comment on above: Performed By: #### L IPID, TSH, T7, CMP #### [facility] [address] [place] [address] Dr. Rich Cutler Calcium [Mass/Vol] 9.0 mg/dL Normal 8.5-10.[address] [facility] Comment on above: Performed By: #### L IPID, TSH, T7, CMP #### [facility] [address] [place] [address] Dr. Rich Cutler Chloride [Moles/Vol] 106 mmol/L Normal 98-107 [facility] Comment on above: Performed By: #### L IPID, TSH, T7, CMP #### [facility] [address] [address] [address] Rich Cutler CO2 [Moles/Vol] 31.0 mmol/L Normal 21.0-32.0 [facility] Comment on above: Performed By: #### L IPID, TSH, T7, CMP #### [facility] [address] [address] [address] Rich Cutler Creatinine [Mass/Vol] 1.11 mg/dL Critically high 0.55-1.02 [facility] Comment on above: Performed By: #### L IPID, TSH, T7, CMP #### [facility] [address] [address] [address] Rich Cutler EGFR-AF UGANDAN >60 Normal >=60 [facility] Comment on above: Performed By: #### L IPID, TSH, T7, CMP #### [facility] [address] [place] [address] Dr. iRch Cutler EGFR-NON AF UGANDAN 50 mL/min/1.73m2 Critically low >=60 [facility] Comment on above: Performed By: #### L IPID, TSH, T7, CMP #### [facility] [address] [address] [address] Rich Cutler Globulin (S) [Mass/Vol] 3.7 g/dL Normal [facility] Comment on above: Performed By: #### L IPID, TSH, T7, CMP #### [facility] [address] [address] [address] Rich Cutler Glucose [Mass/Vol] 121 mg/dL Critically high 74-106 T [facility] Comment on above: Performed By: #### L IPID, TSH, T7, CMP #### [facility] [address] [address] [address] Rich Cutler Potassium [Moles/Vol] 4.5 mmol/L Normal 3.5-5.1 [facility] Comment on above: Performed By: #### L IPID, TSH, T7, CMP #### [facility] [address] [address] [address] Rich Cutler Protein [Mass/Vol] 7.2 g/dL Normal 6.4-8.[address] [facility] Comment on above: Performed By: #### L IPID, TSH, T7, CMP #### [facility] [address] [address] [address] Rich Cutler Sodium [Moles/Vol] 141 mmol/L Normal 136-[address] [facility] Comment on above: Performed By: #### L IPID, TSH, T7, CMP #### [facility] [address] [address] [address] Rich Cutlre Urea nitrogen [Mass/Vol] 16.0 mg/dL Normal 7.0-18.0 [facility] Comment on above: Performed By: #### L IPID, TSH, T7, CMP #### [facility] [address] [place] [address] Dr. Rich Cutler Urea nitrogen/Creatinine [Mass ratio] 14.4 mg/mg Normal [facility] Comment on above: Performed By: #### L IPID, TSH, T7, CMP #### [facility] [address] [address] [address] Rich Cutler TSHon 09-23-2022 TSH 3.915 uIU/mL Critically high 0.358-3.[address] [facility] Comment on above: Performed By: #### L IPID, TSH, T7, CMP #### [facility] [address] [place] [address] Dr. Rich Cutler Physician Referralon 022 Physician Referral [phone] Normal [facility] Panelon 10-07-2021 Cholesterol [Mass/Vol] 205 mg/dL High 140-200 [facility] Comment on above: Result Comment: Chol less than 200 mg/dl low risk Chol 201-239 mg/dl borderline risk Chol 240 mg/dl and greater high risk Performed By: #### L IPID, [id number], TSH3 wRFLX #### [facility] [address] Cholesterol in HDL [Mass/Vol] 25 mg/dL Low 35-85 [facility] Comment on above: Result Comment: HDL CHOL ATP-III CLASSIFICATION Cardiovascular Risk HDL > or equal to 60 mg/dL LOW HDL < 40 mg/dL HIGH Performed By: #### L IPID, [id number], TSH3 wRFLX #### [facility] [address] Cholesterol.total/C holesterol in HDL [Mass ratio] 8.2 {ratio} Normal <5.0 [facility] Comment on above: Performed By: #### L IPID, [id number], TSH3 wRFLX #### [facility] [address] LDL Cholesterol,Calcula coby 160 mg/dL High 0-100 [facility] Comment on above: Result Comment: LDL ATP III CLASSIFICATION LDL less than 100 mg/dL Optimal LDL 100-129 mg/dL Near or above optimal LDL 130-159 mg/dL Borderline high LDL 160-189 mg/dL High LDL greater than 189 mg/dL Very high Performed By: #### L IPID, [id number], TSH3 wRFLX #### [facility] [address] Triglyceride w/Reflex 100 mg/dL Normal 35-149 [facility] Comment on above: Result Comment: TRIG ATP III CLASSIFICATION TRIG less than 150 mg/dL Normal TRIG 150-199 mg/dL Borderline high TRIG 200-500 mg/dL High TRIG greater than 500 mg/dL Very high Standard traceable to the Center for Disease Conrtrol and Prevention (CDC) test method. Performed By: #### L IPID, [id number], TSH3 wRFLX #### [facility] [address] [id number] [facility] VLDL CHOLESTEROL 20 mg/dL Normal [facility] Comment on above: Performed By: #### L IPID, [id number], TSH3 wRFLX #### [facility] [address] [id number] [facility] Thyroid Stim Hormone w/Rflxo n 10-07-2021 Thyroid Stim Hormone w/Rflx 3.27 u[iU]/mL Normal 0.45-5.33 [facility] Comment on above: Performed By: #### L IPID, [id number], TSH3 wRFLX #### [facility] [address] [id number] [facility] Vitamin D 25 Hydroxy Totalon 10-07-2021 Vitamin D 25 Hydroxy Total 26.5 ng/mL Low 30-100 [facility] Comment on above: Result Comment: JACKELINE MIN D STATUS 25(OH)VITAMIN D RANGE (ng/mL) Deficient <20 Insufficient 20 to <30 Sufficient 30 to 100 Reference: Lanny MF,Gino NC, Dyan VALENZUELA, et al. Evaluation,treatment, and prevention of vitamin D deficiency; an Endocrine Society clinical practice guideline. JCEM. 2010; 96(7):1911-30. PERFORMED BY: [place] [id number] PATHOLOGIST STRATEGY EXECUTION CONSULTANT SILVESTRE SCHULER M.D. Performed By: #### L IPID, [id number], TSH3 wRFLX #### [address] [place] [id number] [facility] Vital Signs Date Time Vital Sign Value Performing Clinician Deidre gagnon 10-06-2022 15:36-0500 Blood Pressure Location Umm LANDON [facility] [place] 10-06-2022 15:36-0500 Diastolic blood pressure 86 mm[Hg] Umm LANDON [facility] [place] 10-06-2022 15:36-0500 Heart rate 72 /min Umm JACQUESL [facility] [place] 10-06-2022 15:36-0500 Respiratory rate 16 /min Umm JACQUESL [facility] [place] 10-06-2022 15:36-0500 Systolic blood pressure 126 mm[Hg] Umm LANDON [facility] [place] Encounters Encounter Date Encounter Type Care Provider Facility Start: 10-03-2024 End: 10-03-2024 [facility] Start: 09-04-2024 End: 09-04-2024 ambulatory [facility] Start: 08-29-2024 End: 08-29-2024 ambulatory [facility] Start: 08-04-2024 End: 08-04-2024 ambulatory [facility] Start: 07-20-2024 ambulatory [facility] Start: 07-18-2024 ambulatory [facility] Start: 07-18-2024 End: 07-18-2024 Emergency department patient visit HERMINIA SADLERUNDERS [facility] Start: 07-18-2024 End: 07-18-2024 ambulatory [facility] Start: 07-11-2024 Evaluation and manag ement of inpatient [facility] Start: 07-11-2024 Emergency department patient visit FEDERICA ANDERSON [facility] Start: 07-11-2024 End: 07-12-2024 Evaluation and management of inpatient TAO Dugan [facility] Start: 07-10-2024 End: 07-10-2024 ambulatory [facility] Start: 06-30-2024 Evaluation and manag ement of inpatient [facility] Start: 06-30-2024 Evaluation and manag ement of inpatient [facility] Start: 06-29-2024 End: 07-01-2024 Evaluation and management of inpatient KENDRA [facility] Start: 06-21-2024 End: 06-21-2024 ambulatory [facility] Start: 05-26-2024 End: 05-26-2024 ambulatory [facility] Start: 11-26-2022 Encounter for preprocedural laboratory examination DR UMM LANDON . [facility] Start: 11-25-2022 End: 11-26-2022 ambulatory Umm LANDON Facility:CD:[id number] Start: 11-20-2022 End: 11-21-[address] UMM LANDON . Facility:[facility] Start: 11-20-2022 End: 11-21-2022 Encounter for preprocedural laboratory examination DR UMM LANDON . Facility: Start: 10-06-2022 End: 10-07-2022 ambulatory Umm LANDON Facility: [place] Start: 10-06-2022 End: 10-06-2022 Patient encounter procedure Umm LANDON [facility] Start: 10-02-2022 End: 10-03-[address] KENDRA MORAN . Facility:[facility] Start: 09-30-2022 End: 10-01-[address] KENDRA MORAN . Facility:[facility] Start: 09-28-2022 Encounter for genera l adult medical examination without abnormal findings DR KENDRA MORAN . [facility] Start: 09-24-2022 End: 09-24-[address] SYBIL [...] mRNA BNT-162b2 vax Umm NILL [facility] [place] 03-11-2021 SARS-CoV-2 (COVID-19 ) mRNA BNT-162b2 doris LANDON [facility] [place] Payers Date Payer Category Payer Medicaid [id number] 1965 Unknown [id number] 2.16.8 [id number] 1965 Unknown [id number] 2.16.8 [id number] 1965 Unknown [id number] 2.16.84 [id number] 1965 Unknown [id number] 2.16.84 [id number] 1965 Unknown [id number] 2.16.84 [id number] 1965 Unknown [id number] 2.16.84 [id number] 1965 Unknown [id number] 2.16.84 [id number] 1965 Unknown [id number] 2.16.84 [id number] 1965 Unknown [id number] 2.16.84 [id number] 1960 Self-pay [id number] 1960 Unknown [id number] Social History Date Type Detail Facility Start: 10-06-2022 Tobacco smoking status Ex-smoker (fi nding) [facility] [place] Tobacco smoking status Never [facility] [place] Sex Assigned At Female [facility] Functional Status Date Assessment Result Facility 10-06-2022 Functional Status N/A [facility] [place] Clinical Notes 10-11-2022 to 10-03-2024 Note Date [...] metoprolol - CT A/P Jun 2019 in [place], [place] performed for abd pain, incidentally detected [...] 25 mg by (more content not included)... [facility] 09-04-2024 Note [place] Cardiology - [facility] Subjective Aby Madrigal is a 59 y.o. year old female patient being seen for follow up [facility] in Jun 2024 for hypotension. [...] infarction) (CMS/HCC) Hypokalemia Coronary artery disease involving havasupai coronary artery of havasupai heart without angina pectoris Depression, major, severe [...] and V6. She was then admitted to [facility] on 07/11/2024 with NSTEMI. She [...] and Affect: M (more content not included)... [facility] 07-20-2024 Note Attestation signed by Richa [...] Age: 59 y.o. : 1965 Account No.: [id number] Referring physician: Dr. Jarocho Saldaña Chief complaint: RML nodule HPI Aby Madrigal is a 59 y.o. female with hypertension, CAD status post PCI recently in June 2024,, cigarette smoking who is presenting to IP clinic via telemedicine as a new patient after being referred by Dr. Jarocho Saldaña. Patient reports recent admission to [facility] for hypertensive emergency. This prompted a CT of the chest which was positive for right middle lobe nodule. She then underwent PCI here at [facility] in June. She is currently [...] PFTs on file. CTA chest 04/21/2024 at [facility]: Right middle lobe approximately 1 cm spiculated nodule appreciated Subsequent PET CT 2024 at [facility]: Right middle lobe nodule is faintly [...] alcohol. She reports (more content not included)... [facility] 07-18-2024 Note REASON FOR VISIT + [...] metoprolol - CT A/P Jun 2019 in [place], [place] performed for abd pain, incidentally detected [...] History: Diagnosis Date Abnormal ECG Diabetes mellitus (CMS/[facility]) Hyperlipidemia Hypertension Obstructive sleep apnea Panic attacks Stroke (CMS/[facility]) Past Surgical History: Procedure Laterality Date CEREBRAL [...] Rfl: carvedilol (C (more content not included)... 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 Resides at home alone. Discharge plan is home. [facility] 07-18-2024 Note Patient sent to ED f or hypotension and dizziness/lightheadedness [facility] 07-12-2024 Note Hospital Medicine Discharge Summary Final Discharge Diagnosis: NSTEMI Admission Diagnosis: Hypokalemia [E87.6] NSTEMI (non-ST elevated myocardial infarction) ([facility]) [I21.4] Hypertensive urgency [I16.0] Adenoma of left adrenal gland [D35.02] Resistant hypertension [I1A.0] Atherosclerosis of havasupai coronary artery of havasupai heart without angina pectoris [I25.10] Coronary artery disease involving havasupai coronary artery of havasupai heart with unstable angina pectoris ([facility]) [I25.110] Type 2 diabetes mellitus without complication, without long-term current use of insulin ([facility]) [E11.9] Hospital course: 59yoF with CAD s/p LAD SARKIS 11 days ago who was admitted to [facility] on 07/11 for chest pain. patient initially presented to [facility] for uncomfortable feeling in her chest and was found to have elevated troponins and new ischemic changes on EKG. Infusion and cardiology was consulted transferred to [facility] for further evaluation. Initially the patient had blood pressures up to 192/65 for which home medications were restarted. Troponins at [facility] were negative and there were no [...] [facility] 07/20/2024 1:00 PM Richa Viramontes MD [facility] 09/05/2024 1:00 PM Bijan Licea MD [facility] Your medication list START taking [...] Your Medications These medications were sent to [facility]/pharmacy #[id number] [address] isosorbide mononitrate ER 60 mg 24 hr [...] activity In process (more content not included)... [facility] 07-11-2024 Note 07/11/24 1817 Financial Resource [...] place to sleep or slept in a prison (including now)? N Transportation Needs In the [...] than 3 How often do you attend uatsdin or christianity services? Never Do you belong to any clubs or organizations such as uatsdin groups, unions, fraternal or athletic groups, or [...] In the past 12 months has the [employer], gas, oil, or water [employer] threatened to shut off services in your home? 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 Referral Reason Psychosocial assessment Patient Information Primary Caregiver Self Accompanied by/Relationship Daughter (Rosita); Zlbidfom-wd-hvi (Yesy) Activities of Daily Living Assistive Device Not applicable Living Arrangement (Current/Prior to Hospitalization) Private residence (Lives at home by herself) Ambulation Independent Dressing Independent Feeding Independent Behavior Oriented (A&Ox4) Communication Can write;Talks;Understands speaking;Understands Telugu;Reads Income Information Income Source Unemployed (receives survivor benefits) Discharge Planning Support Systems Children;Family members (daughter, nrqtfmpn-xn-bxj, son) Type of Residence Private residence Will patient need Precert for Post Acute needs? No Patient's goal for discharge Home Does the patient need discharge transport arranged? No Completed social work assessment and SDoH screening. Patient was A&Ox4 at this time. Patient's daughter, Rosita, and patient's qjfkyczd-cs-qzn, Yesy, were currently present at bedside. Patient reported that she lives at home by herself and she identified her support system as her daughter, Rosita, her coypmoft-zw-uyw, Yesy, and her son, Elie. Patient endorsed [...] any alcohol consumption or recreational drug use. [facility] 07-11-2024 Note Hospital Medicine History and Physical 07/11/2024 12:19 PM THE HOSPITALIST TEAM PREFERS TO USE [employer] FOR COMMUNICATION 7AM-7PM. IF I DO NOT RESPOND WITHIN 15 MINUTES, PLEASE PAGE ME/CALL THROUGH THE OUTBOARD MOTOR MECHANIC. FROM 7PM-7AM, PLEASE PAGE [phone](COVR) Chief Complaint Chief Complaint Patient presents with [...] s/p stent placement 11 days ago at [facility] presented to ER as a transfer from [facility] for NSTEMI. Patient states that last night [...] Noted Hypokalemia 07/11/2024 Coronary artery disease involving havasupai coronary artery of havasupai heart with unstable angina pectoris ([facility]) 07/11/2024 Anxiety 06/30/2024 Type 2 diabetes mellitus without complication, without long-term current use of insulin ([facility]) 06/30/2024 Chest pain 06/30/2024 Elevated troponin 06/30/2024 Hypertensive urgency 06/30/2024 Hypomagnesemia 06/30/2024 QURESHI (dyspnea on exertion) 05/26/2024 Atherosclerosis of havasupai coronary artery of havasupai heart without angina pectoris 05/26/2024 Hyperlipidemia 05/26/2024 Murmur, heart 05/26/2024 Sepsis ([facility]) 07/14/2019 BV (bacterial vaginosis) 10/18/2017 GERD (gastroesophageal reflux disease) 10/18/2017 Essential hypertension 10/18/2017 TIA (transient ischemic attack) 10/18/2017 NSTEMI (non-ST elevated myocardial infarction) ([facility]) 06/29/2024 Assessment and Plan NSTEMI CAD, s/p [...] for GI prophylaxis (more content not included)... [facility] 07-10-2024 Note [place] [facility] Note Reason for cardiology [...] Take 1 tablet (more content not included)... [facility] 07-01-2024 Note Hospital Medicine Discharge Summary [...] hypertension, IBS presents a direct mission from [facility] with a chief complaint of chest pain. [...] seen on her EKG. She went to [facility] for the symptoms. Labs were completed showing [...] on a heparin drip and transferred to [facility] for likely cardiac cath. [...] - Continue metformin. Dear Dr. Lidia MD, [facility] is advised to follow up with you within 1-2 weeks. Items to follow up in ambulatory setting: None Follow-up with: Cardiology and Nephrology Scheduled appointments: Future Appointments Date Time Provider Department Center 07/10/2024 2:20 PM [facility] Your medication list START taking these [...] Your Medications These medications were sent to [facility]/pharmacy #[id number] [place], [place] - [address] [address] carvedilol 25 mg tablet cloNIDine 0.1 mg [...] days Lab Units (more content not included)... [facility] 07-01-2024 Note [facility] CARDIOLOGY INPAT IENT PROGRESS NOTE Reason for follow up: NSTEMI Subjective Aby Madrigal, a 59 y.o. female patient, is transferred from [facility] for continuity of care. Patient reports that 3 days ago, she woke up in the mid of the night with indigestion, and a feeling fullness, but no pressure like chest pain. She presented to [facility], where she was found to be hypertensive. [...] 0.56 06/29/2024 E (more content not included)... [facility] 06-30-2024 Note Patient: Aby antony Procedure Information Date/Time: 06/30/24 1600 Procedure: Coronary angiography (Bilateral) Location: [facility] PHYSICIAN/OPHTHALMOLOGIST 3 / [facility] (Cath) Providers: Brunilda [...] Plan discussed with attending. 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 [facility] 06-30-2024 Note 06/30/24 1431 Admission Assessment [...] Interested Does the patient have a case making machine operator assigned to them through their insurance? No [...] to send link and activate MyChart? No [facility] 06-30-2024 Note Case was discussed w ith the SALVADOR on 06/29/2024. I agree with the history, physical, assessment, and plan of care. I discussed the findings and therapeutic plan. I agree with the documentation, except for any updates below. Maurice Nogueira MD [facility] 06-30-2024 Note Hospital Medicine History and Physical 06/30/2024 1:15 AM THE HOSPITALIST TEAM PREFERS TO USE [employer] CHAT FOR COMMUNICATION 7AM-7PM. IF I DO NOT RESPOND WITHIN 15 MINUTES, PLEASE PAGE ME/CALL THROUGH THE OUTBOARD MOTOR MECHANIC. FROM 7PM-7AM, PLEASE PAGE [phone](COVR) Chief Complaint Direct admission from [facility] with CP History of Present Illness Aby Madrigal is an 59 y.o. female who came from home with past medical history of anxiety, DM2, hypertension, IBS presents a direct mission from [facility] with a chief complaint of chest pain. [...] seen on her EKG. She went to [facility] for the symptoms. Labs were completed showing [...] on a heparin drip and transferred to [facility] for likely cardiac cath. [...] complication, without long-term current use of insulin ([facility]) 06/30/2024 Chest pain 06/30/2024 Elevated troponin 06/30/2024 Hypertensive urgency 06/30/2024 QURESHI (dyspnea on exertion) 05/26/2024 Atherosclerosis of havasupai coronary artery of havasupai heart without angina pectoris 05/26/2024 Hyperlipidemia 05/26/2024 Murmur, heart 05/26/2024 Sepsis ([facility]) 07/14/2019 BV (bacterial vaginosis) 10/18/2017 GERD (gastroesophageal reflux disease) 10/18/2017 Essential hypertension 10/18/2017 TIA (transient ischemic attack) 10/18/2017 Assessment and Plan Aby Madrigal is an 59 y.o. female who came from home with past medical history of anxiety, DM2, hypertension, IBS presents a direct mission from [facility] with a chief complaint of chest pain. #Chest pain #Elevated troponin Troponin 0.1, will continue to trend -Patient continues to have mild chest discomfort upon arrival -Continue heparin drip -CXR negative for acute process at OSH -EKG showing normal sinus rhythm -N.p.o. for possible right and left cardiac cath in a.m. -Patient with new diastolic dysfunction on echoc (more content not included)... [facility] 06-21-2024 Note [place] Cardiology - [place] [facility] Subjective Aby Madriagl is a 59 y.o. year old female patient being seen for follow up [facility] per Dr. Moran. She has [...] attack) QURESHI (dyspnea on exertion) Atherosclerosis of [place] coronary artery of [place] heart without angina pectoris Hyperlipidemia Murmur, heart [...] Judgment: Judgment no (more content not included)... [facility] 05-26-2024 Note [facility] Note Reason for cardiology [...] PSYCH: appropriate mood, (more content not included)... [facility] 11-25-2022 Note OPERATIVE NOTE OPERATION DATE: [...] 10 years. CC: Kendra Moran M.D. [facility] 10-11-2022 Note Chief Complaint consultation for colonoscopy [...] Oral, (more content not included)... [facility] Comment on above: Result Comment: Elec tronically Signed By: DIPESH BUCKNER, Umm Hogan\Date and Time Signed: 10/11/22 11:01 EST Evaluation + Plan note No data available for this section General [facility] Discharge instructions No data available for this section General Surgery [place] [facility] note No data available for this section General Surgery [place] Summary Purpose Family History No Family History [...] AUTHOR AUTHOR'S ORGANIZ ATION 12/16/2022 [facility] DATE CREATED AUTHOR AUTHOR'S ORGANIZ ATION 03/26/2023 [facility] DATE CREATED AUTHOR AUTHOR'S ORGANIZ ATION 10/15/2024 [facility] Patient Care team informatio n (unrecognized section and content) Personnel Name: Kendra Moran MD Address: Address: [address] [place] [address] Personnel Name: Kendra Moran MD Address: Address: [address] [place] [address] FOR RECORDS PERTAINING TO PATIENTS WHO ARE [...] BE BASED ON THE PRIMARY CLINICAL RECORDS. [facility]. provides no warranty or guarantee of the accuracy or completeness of information in this document.
--- NOTE | 2024-11-12 06:39 | XR_ITS ---
[address] [address] Patient Name: MILAN RASMUSSEN MRN: [id number] date: 1965 Sex: F Assigned Patient Location: ER Current Patient Location: ER Accession/Order Number: [id number] Exam Date: 11/12/2024 06:50 Report Date: 11/12/2024 07:06 At the request of: SUZY ZABALA Procedure: XR chest 1V Exam: Radiographs: XR chest 1V Reason for exam: chest pain Comparison: Chest x-ray dated 09/28/2024 XR/XR chest 1V IMPRESSION: Minimal linear atelectasis or scarring in the left lower lung. Chest is otherwise unremarkable. Electronically authenticated by: PADMAJA LINCOLN Date: 11/12/2024 07:06
--- NOTE | 2024-11-12 06:39 | ECG_ITS ---
[facility] Test Date: 2024-11-12 Pat Name: MILAN RASMUSSEN Department: Room: - Gender: Female [employer]: : 1965 Requested By: KENDRA MORAN Order Number: [id number] Reading MD: AMBER MAN Measurements Intervals [place] Rate: 81 P: 40 KS: 156 QRS: 15 QRSD: 86 T: 193 QT: 348 QTc: 385 Interpretive Statements 1100 Sinus rhythm 4664 Twave abnormality, possible inferolateral ischemia 9150 abnormal ECG Compared to ECG 10/15/2024 16:56:32 Left ventricular hypertrophy no longer present Possible ischemia still present Electronically Signed On 11-13-2024 22:38:41 EST by AMBER MAN
[2024-11-12 07:09] LABS: Basophils Absolute Auto 0.1 10^3/uL (0.0-0.1); Basophils Percent Auto 0.8 % (0.2-2.0); Eosinophils Absolute Auto 0.3 10^3/uL (0.0-0.7); Hematocrit 37.6 % (36.0-48.0); Hemoglobin 11.7 g/dL (12.0-16.0); Immature Granulocytes Abs Auto 0.02 10^3/uL (0.00-0.03); Immature Granulocytes Pct Auto 0.3 % (0.0-0.5); Lymphocytes Absolute Auto 1.5 10^3/uL (1.2-3.8); Lymphocytes Percent Auto 22.7 % (20.5-60.0); Mean Corpuscular HGB Conc 31.1 g/dL (29.9-35.2); Mean Corpuscular Volume 83.6 fL (81.0-99.0); Mean Platelet Volume 10.1 fL (9.5-13.5); Monocytes Absolute Auto 0.6 10^3/uL (0.3-0.8); Monocytes Percent Auto 8.5 % (1.7-12.0); Neutrophils Absolute Auto 4.1 10^3/uL (1.4-6.5); Neutrophils Percent Auto 63.7 % (43.0-75.0); Platelet Count 219 10^3/uL (150-450); Red Cell Distribution Width 15.5 % (11.0-15.0); White Blood Count 6.4 10^3/uL (4.0-11.0)
[2024-11-12 07:29] LABS: Alanine Aminotransferase 45 U/L (14-59); Albumin Level 3.4 g/dL (3.4-5.0); Alkaline Phosphatase 70 U/L (46-116); Anion Gap 14.3; Aspartate Amino Transferase 29 U/L (15-37); Bilirubin Total 0.3 mg/dL (0.2-1.0); Calcium 9.6 mg/dL (8.5-10.1); Chloride 107 mmol/L (98-107); Estimated GFR (African America 55 (>=60 mL/min/1.73m^2); Estimated GFR (Non-African Ame 45 (>=60 mL/min/1.73m^2); Globulin 3.3 g/dL; Glucose 130 mg/dL (74-106); Potassium 3.3 mmol/L (3.5-5.1); Sodium 147 mmol/L (136-145); Total Protein 6.7 g/dL (6.4-8.2)
[2024-11-12 07:30] LABS: Troponin I High Sensitivity 56.5 pg/mL (4.0-51.3)
[2024-11-12] MEDS: NITROGLYCERIN 0.4 MG BOTTLE SL (07:40)
[2024-11-12] MEDS: PANTOPRAZOLE SODIUM 40 MG VIAL IV (07:40)
[2024-11-12] MEDS: ONDANSETRON PF 4 MG/2 ML VIAL IV ×2 (07:40→22:11)
[2024-11-12] MEDS: CLOPIDOGREL BISULFATE 75 MG TABLET PO (08:22)
[2024-11-12] MEDS: ASPIRIN 81 MG TAB.CHEW 324 MG PO (08:23)
[2024-11-12] MEDS: LORAZEPAM 1 MG TABLET PO ×3 (08:23→20:59)
[2024-11-12 09:01] LABS: Troponin I High Sensitivity 60.1 pg/mL (4.0-51.3)
--- NOTE | 2024-11-12 10:34 | ED_ITS ---
HPI - Abdominal Pain General Chief Complaint: Abdominal Pain Stated Complaint: abd pain Time Seen by Provider: 11/12/24 07:12 Source: patient Mode of arrival: walk-in Limitations: no limitations History of Present Illness HPI narrative: The patient have a strong history of coronary artery disease as well as anxiety is coming to the ER with a symptoms of retrosternal pressure that started 430 this morning when she was asleep, the patient denies any nausea or vomiting she mentioned that she has not been taking her Protonix for the last few days because she ran out of it Patient denies any shortness of breath or any other complaint Related Data Home Medications ?Medication ?Instructions ?Recorded ?Confirmed metformin 500 mg tablet 500 mg PO BID 04/21/24 11/12/24 aspirin 81 mg capsule 81 mg PO DAILY 04/22/24 11/12/24 clopidogrel 75 mg tablet 75 mg PO DAILY 07/01/24 11/12/24 pantoprazole 40 mg tablet,delayed 40 mg PO .ACB 07/20/24 11/12/24 release (Protonix) sennosides 8.6 mg-docusate sodium 1 tab-cap PO DAILY PRN constipation 07/20/24 11/12/24 50 mg tablet (Colace 2-In-1) losartan 100 mg tablet 100 mg PO DAILY 07/24/24 11/12/24 quetiapine 100 mg tablet (Seroquel) 100 mg PO .QHS 07/24/24 11/12/24 rosuvastatin 40 mg tablet 40 mg PO DAILY 07/24/24 11/12/24 isosorbide mononitrate 60 mg 60 mg PO BID 07/31/24 11/12/24 tablet,extended release 24 hr lorazepam 1 mg tablet (Ativan) 1 mg PO Q6H PRN anxiety 07/31/24 11/12/24 hydralazine 50 mg tablet 50 mg PO TID PRN hypertension 09/15/24 11/12/24 Previous Rx's ?Medication ?Instructions ?Recorded canagliflozin 100 mg tablet 100 mg PO QD #30 tabs 07/27/24 (Invokana) carvedilol 25 mg tablet 25 mg PO TID #90 tabs 07/27/24 Allergies Allergy/AdvReac Type Severity Reaction Status Date / Time amlodipine Allergy Mild Headache Verified 11/12/24 06:08 alprazolam (From Xanax) AdvReac Severe Watery Eye Verified 11/12/24 06:08 Review of Systems ROS Status of ROS 10 or more systems reviewed and unremark able except as noted in history and below [facility] Medical History (Updated 11/12/24 @ 10:37 by Theresa Baron MD) Chest pain ?R07.9 - Chest pain, unspecified (ICD-10) CAD (coronary artery disease) ?I25.10 - Atherosclerotic heart disease of [place] coronary artery without angina pectoris (ICD-10) Hypertensive urgency ?I16.0 - Hypertensive urgency (ICD-10) HTN (hypertension) ?I10 - Essential (primary) hypertension (ICD-10) Hypertensive urgency ?I16.0 - Hypertensive urgency (ICD-10) Chest pain ?R07.9 - Chest pain, unspecified (ICD-10) Anxiety ?F41.9 - Anxiety disorder, unspecified (ICD-10) HTN (hypertension) ?I10 - Essential (primary) hypertension (ICD-10) Hypokalemia ?E87.6 - Hypokalemia (ICD-10) Hypertension, uncontrolled ?I10 - Essential (primary) hypertension (ICD-10) Chest pain ?R07.9 - Chest pain, unspecified (ICD-10) NSTEMI (non-ST elevated myocardial infarction) ?I21.4 - Non-ST elevation (NSTEMI) myocardial infarction (ICD-10) Shortness of breath ?R06.02 - Shortness of breath (ICD-10) Headache ?R51.9 - Headache, unspecified (ICD-10) Elevated d-dimer ?R79.89 - Other specified abnormal findings of blood chemistry (ICD-10) Hypertensive emergency ?I16.1 - Hypertensive emergency (ICD-10) Uncontrolled hypertension ?I10 - Essential (primary) hypertension (ICD-10) Irritable bowel syndrome ?K58.9 - Irritable bowel syndrome without diarrhea (ICD-10) H/O nephrolithotomy with removal of calculi ?Z98.890 - Other specified postprocedural states (ICD-10) ?Z87.442 - Personal history of urinary calculi (ICD-10) Kidney stone ?N20.0 - Calculus of kidney (ICD-10) Sepsis ?A41.9 - Sepsis, unspecified organism (ICD-10) H/O angiography ?Z92.89 - Personal history of other medical treatment (ICD-10) Lung nodule ?R91.1 - Solitary pulmonary nodule (ICD-10) Anxiety ?F41.9 - Anxiety disorder, unspecified (ICD-10) HTN (hypertension) ?I10 - Essential (primary) hypertension (ICD-10) Diabetes ?E11.9 - Type 2 diabetes mellitus without complications (ICD-10) TIA (transient ischemic attack) ?G45.9 - Transient cerebral ischemic attack, unspecified (ICD-10) Surgical History H/O heart artery stent ?Z95.5 - Presence of coronary angioplasty implant and graft (ICD-10) History of appendectomy ?Z90.49 - Acquired absence of other specified parts of digestive tract (ICD- 10) H/O tubal ligation ?Z98.51 - Tubal ligation status (ICD-10) History of cholecystectomy ?Z90.49 - Acquired absence of other specified parts of digestive tract (ICD- 10) Family History (Updated 04/22/24 @ 01:15 by Stalin Kevin) Mother Family history of cancer Father MVA (motor vehicle accident) Brother Family history of stroke Social History (Updated 04/22/24 @ 01:26 by Stalin Kevin) Within the past year, how often did you have a drink containing alcohol: never Within the past year, how often did you have six or more drinks on one occasion: never Score interpretation: A score less than 3 is consistent with normal alcohol consumption. Smoking status: Former smoker Second hand tobacco smoke exposure: No Non-prescribed substance use: denies use Previous occupational history: no Known occupational exposures/hazards: No Highest level of school completed/degree received: high school graduate Do you want help with school or training: No Are you now , , , , never or living with a partner: In a typical week, how many times do you talk on the telephone with family, fr iends, or neighbors: 3 or more times per week How often do you get together with friends or relatives: 3 or more times per week How often do you attend christian or advent services: never Do you belong to any clubs or organizations such as christian groups unions, fraternal or athletic groups, or school groups: no Total score: 1 Score interpretation: A score of less than or equal to 1 indicates the most socially isolated. Little interest or pleasure in doing things: not at all Feeling down, depressed, or hopeless: not at all Feel stressed/tense/nervous/anxious/difficulty sleeping: not at all Do you think of yourself as: straight/heterosexual Gender Identity: female Exam Narrative Exam Narrative: Nurses notes and vital signs reviewed and patient is not hypoxic. General: Well-appearing and in no apparent distress. Skin: Warm, dry, no pallor noted. No rash. Head: Normocephalic, atraumatic. Neck: Supple, non-tender. Eye: Pupils are equal, round and EOMI. No scleral icterus. Ears, Nose, Mouth, and Throat: TM are clear, no nasal mucosal hypertrophy. Oral mucosa is moist, no posterior oropharynx erythema, uvula is mid-line Cardiovascular: Regular Rate and Rhythm without murmur, gallop or rub. Respiratory: No accessory muscle use or respiratory distress. Lungs are clear to auscultation, no wheezing, rales or rhonchi Chest Wall: no tenderness Back: No midline thoracic or lumbar vertebral tenderness. No CVA tenderness Musculoskeletal: normal ROM, no calf or popliteal tenderness, no lower extremity edema/swelling GI: Abdomen is soft, non-distended. Normal bowel sounds. No masses appreciated. No tenderness to palpation. No rebound, guarding, or rigidity noted. Neurological: A&O x4. No cranial nerve dysfunction observed. No truncal ataxia. Moves all extremities. Sensation intact. Psychiatric: Cooperative and interactive. Normal mood and affect. Constitutional Vital Signs, click to edit/add: Last Vital Signs Temp 98 F 11/12/24 06:03 Pulse 78 11/12/24 09:20 Resp 16 11/12/24 09:20 BP 159/62 H 11/12/24 09:01 Pulse Ox 95 11/12/24 09:20 O2 Del Method Room Air 11/12/24 07:02 Course Vital Signs Vital signs: Vital Signs Respiratory Rate 12 11/12/24 06:02 Temperature 98 F 11/12/24 06:03 Pulse Rate 78 11/12/24 09:20 Respiratory Rate 16 11/12/24 09:20 Blood Pressure 159/62 H 11/12/24 09:01 Pulse Oximetry 95 11/12/24 09:20 Oxygen Delivery Method Room Air 11/12/24 07:02 MDM - Abdominal Pain MDM Narrative Medical decision making narrative: The patient EKG in the ER showing sinus rhythm with a heart rate of [address] elevation or depression compared to the old EKG Patient troponin was elevated at 56 repeated after 2 hours the patient troponin was 60 Patient provided with nitro initially in addition to her Ativan She was provided with aspirin and her Plavix as well I spoke with Dr. Mejias the cardiology on-call and he agreed that the patient can be admitted for management of her blood pressure that was elevated on arrival and also that the patient chest pain could be secondary to non-STEMI The patient will have her troponin trended in case elevated she will require transfer but other than that this the patient right now is okay to be admitted to our hospital Patient case was discussed with and he agreed to admit the patient for further evaluation and management Lab Data Labs: Lab Results 11/12/24 11/12/24 Range/Units 06:53 08:14 WBC 6.4 (4.0-11.0) 10^3/uL RBC 4.50 (4.20-5.40) 10^6/uL Hgb 11.7 L (12.0-16.0) g/dL Hct 37.6 (36.0-48.0) % MCV 83.6 (81.0-99.0) fL MCH 26.0 L (26.7-34.0) pg MCHC 31.1 (29.9-35.2) g/dL RDW 15.5 H (11.0-15.0) % Plt Count 219 (150-450) 10^3/uL MPV 10.1 (9.5-13.5) fL Neut % (Auto) 63.7 (43.0-75.0) % Lymph % (Auto) 22.7 (20.5-60.0) % Levy % (Auto) 8.5 (1.7-12.0) % Eos % (Auto) 4.0 (0.9-7.0) % Baso % (Auto) 0.8 (0.2-2.0) % Neut # (Auto) 4.1 (1.4-6.5) 10^3/uL Lymph # (Auto) 1.5 (1.2-3.8) 10^3/uL Levy # (Auto) 0.6 (0.3-0.8) 10^3/uL Eos # (Auto) 0.3 (0.0-0.7) 10^3/uL Baso # (Auto) 0.1 (0.0-0.1) 10^3/uL Abs Immat Gran (auto) 0.02 (0.00-0.03) 10^3/uL Imm/Tot Granulo (auto) 0.3 (0.0-0.5) % Sodium 147 H (136-145) mmol/L Potassium 3.3 L (3.5-5.1) mmol/L Chloride 107 (98-107) mmol/L Carbon Dioxide 29.0 (21.0-32.0) mmol/L Anion Gap 14.3 BUN 17.0 (7.0-18.0) mg/dL Creatinine 1.21 H (0.55-1.02) mg/dL Est GFR ( Amer) 55 L (>=60 mL/min/1.73m^2) Est GFR (Non-Af Amer) 45 L (>=60 mL/min/1.73m^2) BUN/Creatinine Ratio 14.0 Glucose 130 H (74-106) mg/dL Calcium 9.6 (8.5-10.1) mg/dL Total Bilirubin 0.3 (0.2-1.0) mg/dL AST 29 (15-37) U/L ALT 45 (14-59) U/L Alkaline Phosphatase 70 (46-116) U/L Troponin I High Sens 56.5 H* 60.1 H* (4.0-51.3) pg/mL Total Protein 6.7 (6.4-8.2) g/dL Albumin 3.4 (3.4-5.0) g/dL Globulin 3.3 g/dL Albumin/Globulin Ratio 1.0 Lipase 60.0 (16.0-77.0) U/L Discharge Plan Discharge Chief Complaint: Abdominal Pain Clinical Impression: Acute non-ST elevation myocardial infarction (NSTEMI), Hypertensive emergency, Elevated troponin Patient Disposition: Admitted as Observation Time of Disposition Decision: 10:37
--- NOTE | 2024-11-12 10:56 | P.HP_ITS ---
HPI H&P: HPI History of Present Illness Chief complaint: abd pain Narrative: Patient presented to the emergency room with nausea and epigastric pain, she initially felt more like a gallbladder attack, she has had her gallbladder removed, she does have a significant history of coronary artery disease however so workup showed elevated troponin. EKG normal, appears to be NSTEMI, may have happened prior to admission and resolving at this time, patient admitted for workup and treatment of same Opioid HPI Opioid Management Most Recent Pain and Opioid Data: Last Pain Scale 3 07/31/24 19:05 07/31/24 Last ORT Total Score 1 07/31/24 20:05 07/31/24 Last ORT Risk Category Low Risk 07/31/24 20:05 07/31/24 Review of Systems ROS Status of ROS 10 or more systems reviewed and unremark able except as noted in history and below [facility] Medical History Chest pain ?R07.9 - Chest pain, unspecified (ICD-10) CAD (coronary artery disease) ?I25.10 - Atherosclerotic heart disease of [place] coronary artery without angina pectoris (ICD-10) Hypertensive urgency ?I16.0 - Hypertensive urgency (ICD-10) HTN (hypertension) ?I10 - Essential (primary) hypertension (ICD-10) Hypertensive urgency ?I16.0 - Hypertensive urgency (ICD-10) Chest pain ?R07.9 - Chest pain, unspecified (ICD-10) Anxiety ?F41.9 - Anxiety disorder, unspecified (ICD-10) HTN (hypertension) ?I10 - Essential (primary) hypertension (ICD-10) Hypokalemia ?E87.6 - Hypokalemia (ICD-10) Hypertension, uncontrolled ?I10 - Essential (primary) hypertension (ICD-10) Chest pain ?R07.9 - Chest pain, unspecified (ICD-10) NSTEMI (non-ST elevated myocardial infarction) ?I21.4 - Non-ST elevation (NSTEMI) myocardial infarction (ICD-10) Shortness of breath ?R06.02 - Shortness of breath (ICD-10) Headache ?R51.9 - Headache, unspecified (ICD-10) Elevated d-dimer ?R79.89 - Other specified abnormal findings of blood chemistry (ICD-10) Hypertensive emergency ?I16.1 - Hypertensive emergency (ICD-10) Uncontrolled hypertension ?I10 - Essential (primary) hypertension (ICD-10) Irritable bowel syndrome ?K58.9 - Irritable bowel syndrome without diarrhea (ICD-10) H/O nephrolithotomy with removal of calculi ?Z98.890 - Other specified postprocedural states (ICD-10) ?Z87.442 - Personal history of urinary calculi (ICD-10) Kidney stone ?N20.0 - Calculus of kidney (ICD-10) Sepsis ?A41.9 - Sepsis, unspecified organism (ICD-10) H/O angiography ?Z92.89 - Personal history of other medical treatment (ICD-10) Lung nodule ?R91.1 - Solitary pulmonary nodule (ICD-10) Anxiety ?F41.9 - Anxiety disorder, unspecified (ICD-10) HTN (hypertension) ?I10 - Essential (primary) hypertension (ICD-10) Diabetes ?E11.9 - Type 2 diabetes mellitus without complications (ICD-10) TIA (transient ischemic attack) ?G45.9 - Transient cerebral ischemic attack, unspecified (ICD-10) Surgical History H/O heart artery stent ?Z95.5 - Presence of coronary angioplasty implant and graft (ICD-10) History of appendectomy ?Z90.49 - Acquired absence of other specified parts of digestive tract (ICD- 10) H/O tubal ligation ?Z98.51 - Tubal ligation status (ICD-10) History of cholecystectomy ?Z90.49 - Acquired absence of other specified parts of digestive tract (ICD- 10) Family History (Updated 04/22/24 @ 01:15 by Stalin Kevin) Mother Family history of cancer Father MVA (motor vehicle accident) Brother Family history of stroke Social History (Updated 04/22/24 @ 01:26 by Stalin Kevin) Within the past year, how often did you have a drink containing alcohol: never Within the past year, how often did you have six or more drinks on one occasion: never Score interpretation: A score less than 3 is consistent with normal alcohol consumption. Smoking status: Former smoker Second hand tobacco smoke exposure: No Non-prescribed substance use: denies use Previous occupational history: no Known occupational exposures/hazards: No Highest level of school completed/degree received: high school graduate Do you want help with school or training: No Are you now , , , , never or living with a partner: In a typical week, how many times do you talk on the telephone with family, friends, or neighbors: 3 or more times per week How often do you get together with friends or relatives: 3 or more times per week How often do you attend yazidism or anabaptist services: never Do you belong to any clubs or organizations such as yazidism groups unions, [employer] or [employer] groups, or school groups: no Total score: 1 Score interpretation: A score of less than or equal to 1 indicates the most socially isolated. Little interest or pleasure in doing things: not at all Feeling down, depressed, or hopeless: not at all Feel stressed/tense/nervous/anxious/difficulty sleeping: not at all Do you think of yourself as: straight/heterosexual Gender Identity: female Meds Home Medications and Allergies Home Medications ?Medication ?Instructions ?Recorded ?Confirmed ?Type metformin 500 mg tablet 500 mg PO BID 04/21/24 11/12/24 History aspirin 81 mg capsule 81 mg PO DAILY 04/22/24 11/12/24 History clopidogrel 75 mg tablet 75 mg PO DAILY 07/01/24 11/12/24 History pantoprazole 40 mg tablet,delayed 40 mg PO .ACB 07/20/24 11/12/24 History release (Protonix) sennosides 8.6 mg-docusate sodium 1 tab-cap PO DAILY PRN constipation 07/20/24 11/12/24 History 50 mg tablet (Colace 2-In-1) losartan 100 mg tablet 100 mg PO DAILY 07/24/24 11/12/24 History quetiapine 100 mg tablet (Seroquel) 100 mg PO .QHS 07/24/24 11/12/24 History rosuvastatin 40 mg tablet 40 mg PO DAILY 07/24/24 11/12/24 History canagliflozin 100 mg tablet 100 mg PO QD #30 tabs 07/27/24 11/12/24 Rx (Invokana) carvedilol 25 mg tablet 25 mg PO TID #90 tabs 07/27/24 11/12/24 Rx isosorbide mononitrate 60 mg 60 mg PO BID 07/31/24 11/12/24 History tablet,extended release 24 hr lorazepam 1 mg tablet (Ativan) 1 mg PO Q6H PRN anxiety 07/31/24 11/12/24 History hydralazine 50 mg tablet 50 mg PO TID PRN hypertension 09/15/24 11/12/24 History Allergies Allergy/AdvReac Type Severity Reaction Status Date / Time amlodipine Allergy Mild Headache Verified 11/12/24 06:08 alprazolam (From Xanax) AdvReac Severe Watery Eye Verified 11/12/24 06:08 Exam Constitutional Vital Signs, click to edit/add: Last Vital Signs Temp 98 F 11/12/24 06:03 Pulse 78 11/12/24 09:20 Resp 16 11/12/24 09:20 BP 159/62 H 11/12/24 09:01 Pulse Ox 95 11/12/24 09:20 O2 Del Method Room Air 11/12/24 07:02 Documenting provider has reviewed patient's vital signs: yes Common normals: no apparent distress Chest Common normals: inspection of chest normal and palpation of chest normal Respiratory Common normals: normal respiratory effort and no retractions Cardio Common normals: regular rate and regular rhythm GI Common normals: Normal to inspection, nondistended, normoactive bowel sounds present and soft to palpation; tender (Minimal epigastric tenderness) Results Labs Labs: Short CBC 11/12/24 Range/Units 06:53 WBC 6.4 (4.0-11.0) 10^3/uL Hgb 11.7 L (12.0-16.0) g/dL Hct 37.6 (36.0-48.0) % Plt Count 219 (150-450) 10^3/uL BMP 11/12/24 06:53 Sodium 147 H Potassium 3.3 L Chloride 107 Carbon Dioxide 29.0 BUN 17.0 Creatinine 1.21 H Glucose 130 H Calcium 9.6 Liver Function 11/12/24 Range/Units 06:53 Total Bilirubin 0.3 (0.2-1.0) mg/dL AST 29 (15-37) U/L ALT 45 (14-59) U/L Alkaline Phosphatase 70 (46-116) U/L Albumin 3.4 (3.4-5.0) g/dL Assessment and Plan Assessment and Plan (1) Elevated troponin: (2) Acute non-ST elevation myocardial infarction (NSTEMI): (3) Hypertensive urgency: (4) Chest pain: Qualifiers: Chest pain type: unspecified Qualified Code(s): R07.9 - Chest pain, unspecified (5) Anxiety: (6) HTN (hypertension): (7) Diabetes: Qualifiers: Diabetes mellitus type: type 2 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 In a patient with known coronary artery disease now with hypertensive urgency resulting in acute NSTEMI-improved blood pressure control, track and trend troponins, if go up significantly will need be transferred to a tertiary care facility for further workup Hypokalemia-supplement Hypernatremia-monitor daily Iron deficiency anemia-monitor daily L GERD-do IV Protonix Generalized anxiety disorder continue home medications Diabetes mellitus-Home medications plus insulin sliding scale Admission status: Patient with significant elevated high blood pressure resulting in hypertensive urgency resulting in acute NSTEMI-Place patient observational status second troponin not significantly elevated compared to the first 1, will see what the third 1 shows. Better than 50% chance that should be discharged to home, if third troponin is elevated will change patient to inpatient status is medically necessary treatment will span 2 midnights
--- OUTSIDE RECORDS SUMMARY | 2024-11-12 11:27 | XMS_ITS | CCD ---
Author Organization [facility] Care Team Providers Care Pillow Filler Name Role Phone Kendra Moran Primary Care Physician [phone] Umm LANDON Attending Unavailable NILL, Umm Michael [...] GARDNER Primary Care Unavailable HOY ., DR GADRNER Admitting Unavailable HOY ., DR GARDNER Attending Unavailable HOY ., DR GARDNER Consulting Unavailable HOY ., DR GARDNER Primary Care Unavailable DEWEY, DR ADELIA Medrano Consulting Unavailable KENDRA MORAN [...] Medication Allergies] Propensity to adverse reactions (disorder) [facility] Repository (1 source) ALPRAZolam; Translations: [ALPRAZOLAM] Drug Allergy [address] [place] [address] Repository (1 source) amLODIPine; Translations: [AMLODIPINE] Drug Allergy [address] [place] [address] Repository (1 source) Lisinopril; Translations: [LISINOPRIL] Drug Allergy [address] [place] [address] Repository Medications Current Medications Medication Drug Class(es) [...] Coronary arteriosclerosis; Translations: [Atherosclerotic heart disease of [place] coronary artery without angina pectoris] Onset: 11-26-2022 [...] source) alf (current) use of aspirin; Translations: [MCC CURRENT USE OF ASPIRIN] Onset: 11-26-2022 Episodic Other aftercare (1 source) 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 To confirm if you have primary aldosteronism were going to do something called a saline infusion test at the [facility] they will be in contact with you likely within the next week. This is a 2-hour test in which we infused saline 2 L and assess any changes in your aldosterone level. This is in a monitored setting so you will not be alone. [facility] Follow-Upon 10-03-2024 Follow-Up [id number] Aby Madrigal 1965 F Date Provider Department Center 10/03/2024 [id number], [facility] ENDOCR [facility] Family History Problem Relation Age of Onset Lung cancer Mother No Known Problems Father Lung cancer Sister Family Status - Relation Status Age at Mother Father Sister Level of Service:03550 [place] OFFICE/OUTPATIENT ESTABLISHED MOD MDM 30 MIN Reason for Visit and Comments: Follow-up [363591] [facility] Office Visiton 09-04-2024 Follow-up visit [id number] Aby Madrigal 1965 F Date Provider Department Center 09/04/2024 GOMEZ KENDALL RIAZ [place] Family History Problem Relation Age of Onset Lung cancer Mother No Known Problems Father Lung cancer Sister Family Status - Relation Status Age at Mother Father Sister Level of Service:16803 [place] OFFICE/OUTPATIENT ESTABLISHED MOD MDM 30 MIN [facility] ALDOSTERONEon 08-29-2024 ALDOSTERONE (NG/DL) IN SER/PLAS 13.0 ng/dL [facility] Comment on above: [...] reference intervals for this test in the [facility] Test Directory (ANTERIOS). Performed By: [employer] [address] [place] [address] Concrete Pavement Installer: Navneet Simeon MD, PhD CLIA Number: [id number] Performed By: #### L [id number] #### [facility] (BEAKER) [address] [place] [address] Ron 08-29-2024 ALT [Catalytic activity/Vol] 25 U/L Normal 7-52 [facility] Comment on above: Performed By: #### L [id number] ####[facility] ([facility]ER)[address] [place] [address] Riki 08-29-2024 AST [Catalytic activity/Vol] 21 U/L Normal 13-39 [facility] Comment on above: Performed By: #### L [id number] ####[facility] ([facility]AKER)[address] [place] [address] BASIC METABOLIC PANELon 10-0 Anion gap [Moles/Vol] 12 mmol/L Normal 7-20 [facility] Comment on above: Performed By: #### L [id number] ####[facility] ([facility])[address] [place] [address] Calcium [Mass/Vol] 9.3 mg/dL Normal 8.6-10.3 [facility] Comment on above: Performed By: #### L [id number] ####[facility] ([facility])[address] [place] [address] Chloride [Moles/Vol] 105 mmol/L Normal 98-107 [facility] Comment on above: Performed By: #### L [id number] ####[facility] ([facility]ER)[address] [place] [address] CO2 [Moles/Vol] 28 mmol/L Normal 21-31 [facility] Comment on above: Performed By: #### L [id number] ####[facility] ([facility])[address] [place] [address] Creatinine [Mass/Vol] 0.95 mg/dL Normal 0.60-1.20 [facility] Comment on above: Performed By: #### L [id number] ####[facility] ([facility])[address] [place] [address] GLOMERULAR FILTRATION RATE ML/MIN/1.73 SQ M.PREDICTED 68.6 mL/min/1.73m*2 Normal >60.0 [facility] Comment on above: Result Comment: [facility]???s estimated glomerular filtration rate (eGFR) [...] of individuals. Performed By: #### L [id number] ####[facility] ([facility])[address] [place] [address] Glucose [Mass/Vol] 99 mg/dL Normal 70-100 [facility] Comment on above: Performed By: #### L [id number] ####[facility] ([facility])[address] [place] [address] Potassium [Moles/Vol] 3.6 mmol/L Normal 3.5-5.1 [facility] Comment on above: Performed By: #### L [id number] ####[facility] ([facility])[address] [place] [address] Sodium [Moles/Vol] 141 mmol/L Normal 136-145 [facility] Comment on above: Performed By: #### L [id number] ####[facility] ([facility])[address] [place] [address] Urea nitrogen [Mass/Vol] 19 mg/dL Normal 7-25 [facility] Comment on above: Performed By: #### L [id number] ####[facility] ([facility])[address] [place] [address] UREA NITROGEN/CREATININE (MASS RATIO) IN SER/PLAS 20.0 Normal [facility] Comment on above: Performed By: #### L [id number] ####[facility] ([facility])[address] [place] [address] CORTISOLon 08-29-2024 CORTISOL (UG/DL) IN SER/PLAS 6.1 ug/dL Normal 0-9 [facility] Comment on above: Performed By: #### L [id number] #### [facility] ([facility]) [address] [place] [address] CT ABDOMEN PELVIS W AND WO I [...] Electronically signed: Marybeth Lane Invalid Interpretation Code [facility] DEXAMETHASONE LEVELon 2023 DEXAMETHASONE <50.0 Normal [facility] Comment on above: Order Comment: Blood test [...] developed and its performance characteristics determined by [employer]. It has not been cleared or approved by the [place] Food and Drug Administration. This test was performed in a CLIA certified laboratory and is intended for clinical purposes. Performed By: [employer] [address] [place] [address] Concrete Pavement Installer: Nanveet Simeon MD, PhD CLIA Number: [id number] Performed By: #### L [id number] #### [facility] ([facility]) [address] [place] [address] LIPID PANELon 08-29-2024 CHOL/HDL 2.4 mg/dL Normal [facility] Comment on above: Performed By: #### L [id number] #### [facility] ([facility]) [address] [place] [address] Cholesterol [Mass/Vol] 80 mg/dL Low 120-200 [facility] Comment on above: Performed By: #### L [id number] #### [facility] ([facility]) [address] [place] [address] Magnesium [Mass/Vol] 96 mg/dL Normal 40-149 [facility] Comment on above: Result Comment: TRIG LYCERIDE REFERENCE RANGE: 20 YEARS AND OLDER CARDIOVASCULAR RISK LESS THAN 150 mg/dL LOW RISK 150 TO 199 mg/dL BORDERLINE RISK 200 mg/dL AND GREATER HIGH RISK Performed By: #### L [id number] #### [facility] ([facility]) [address] [place] [address] Magnesium [Mass/Vol] 28 mg/dL Normal 0-160 [facility] Comment on above: Performed By: #### L [id number] #### [facility] ([facility]) [address] [place] [address] Magnesium [Mass/Vol] 33 mg/dL Normal 23-92 [facility] Comment on above: Performed By: #### L [id number] #### [facility] ([facility]) [address] [place] [address] NON HDL CHOL. (LDL+VLDL) 47 Normal [facility] Comment on above: Performed By: #### L [id number] #### [facility] ([facility]) [address] [place] [address] TOTAL VLDL-C 19 mg/dL Normal 0-40 [facility] Comment on above: Performed By: #### L [id number] #### [facility] ([facility]) [address] [place] [address] Labon 08-29-2024 Lab [id number] Aby Madrigal Cristina 1965 F Date Provider Department Center 08/29/2024 2245-[facility] OPD LAB RESOURCE [facility] OPD [facility] Family History Problem Relation Age of Onset Lung cancer Mother No Known Problems Father Lung cancer Sister Family Status - Relation Status Age at Mother Father Sister Normal [facility] RENIN ACTIVITYon 08-29-2024 RENIN ACTIVITY <0.1 Normal [facility] Comment on above: Result Comment: [...] developed and its performance characteristics determined by [employer]. It has not been cleared or approved by the US Food and Drug Administration. This test was performed in a CLIA certified laboratory and is intended for clinical purposes. Performed By: [employer] [address] [place] [address] Concrete Pavement Installer: Navneet Simeon MD, PhD CLIA Number: [id number] Performed By: #### L [id number] ####[facility] ([facility])[address] [place] [address] 36on 08-10-2024 36 Updated patient on Nodify blood test results and plan for f/u CT and appt scheduled for 10/26/24. Normal [facility] Letter (Out)on 08-09-2024 Letter (Out) [id number] Aby Madrigal 1965 F Date Provider Department Center 08/09/2024 None-None [facility] ADMIT None Family History Problem Relation Age of Onset Lung cancer Mother No Known Problems Father Lung cancer Sister Family Status - Relation Status Age at Mother Father Sister Normal [facility] 36on 08-08-2024 36 Called patient over the phone at 9:17 AM - discussed recent lab results from [place] (including M cortisol of 1.7 after dex, renin undetectable, aldosterone level 4.4) - ruled out autonomous cortisol production - she has stopped spironolactone for about 2 weeks now, continue to hold this until our next appt and we will reassess ARR. We will meet again on Oct 03 She thanked me for the call Normal [facility] Orders Onlyon 08-08-2024 Orders Only [id number] Rohan,Aby S 1965 F Date Provider Department Center 08/08/2024 RICHA MERINO ONC NICKI Family History Problem Relation Age of Onset Lung cancer Mother No Known Problems Father Lung cancer Sister Family Status - Relation Status Age at Mother Father Sister Normal [facility] Telephoneon 08-08-2024 Telephone [id number] Rohan,Aby S 1965 F Date Provider Department Center 08/08/2024 [id number], [facility] ENDOCR [facility] Family History Problem Relation Age of Onset Lung cancer Mother No Known Problems Father Lung cancer Sister Family Status - Relation Status Age at Mother Father Sister Normal [facility] Telemedicineon 07-20-2024 Telemedicine [id number] Nelababebe,Bay S 1965 Date Provider Department Center 07/20/2024 RICHA MERINO ONC NICKI Family History Problem Relation Age of Onset Lung cancer Mother No Known Problems Father Lung cancer Sister Family Status - Relation Status Age at Mother Father Sister Level of Service:08987 RI PHYS/QHP TELEPHONE EVALUATION 21-30 MIN () Reason for Visit and Comments: 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 CT CHEST 04-21-24- PET 06-21-24 Films requested 07-18-24 HAVING HARD TIME GETTING FILMS FROM [facility] AGAIN. Ginny at [place] ([phone] direct line) is working on sending them. CHECK [facility] FOR FILMS PLEASE [facility] 37on 07-18-2024 37 It was [...] done at one of these [facility] Lab Sites The results will then come straight to me I appreciate it [facility] [address] [facility] [address], [place] Hours Wednesday - Wednesday 8 AM - 4PM (Closed 12 - 12:30 PM daily) Phone: [facility] [address] Hours: Wednesday 6 AM - 5 PM Saturday: 7 AM - 2 PM Phone: [address] [place] Hours: Wednesday - Wednesday 7 AM - 3:30 PM Phone: [facility] [address] Hours: Wednesday 7 AM - 5:30 PM Phone: [facility] [address] Hours: Wednesday - Wednesday 8 AM - 4:30 PM Phone: Normal [facility] EDNURSon 07-18-2024 EDNURS ADR and relevant inf o reported to [facility] in pharmacy d/t safety net being down. Viet Kelly RN 07/18/24 1139 Normal [facility] EDNURS SENT FROM MD OFFICE RE: LOW BP; RECENT DC FROM [facility] FOR SAME Normal [facility] EDPROVon 07-18-2024 EDPROV HPI Chief Complaint Patient [...] new meds yesterday. 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 Normal [facility] Office Visiton 07-18-2024 Follow-up visit [id number] Aby Madrigal 1965 Date Provider Department Center 07/18/2024 [facility] [place] Family History Problem Relation Age of Onset Lung cancer Mother No Known Problems Father Lung cancer Sister Family Status - Relation Status Age at Mother Father Sister Level of Service:28995 RI OFFICE/OUTPATIENT NEW MODERATE MDM 45 MINUTES Reason for Visit and Comments: Nodules [Other] Normal [facility] Follow-up visit [id number] Aby Madrigal 1965 F Date Provider Department Center 07/18/2024 [facility] [place] Family History Problem Relation Age of Onset Lung cancer Mother No Known Problems Father Lung cancer Sister Family Status - Relation Status Age at Mother Father Sister 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 I am calling you to follow up [...] No Patient Name Aby Madrigal Date 07/13/24 [facility] Telephoneon 07-13-2024 Telephone [id number] Aby Madrigal 1965 F Date Provider Department Center 07/13/2024 GINNY MALONEY [facility] Family History Problem Relation Age of Onset Lung cancer Mother No Known Problems Father Lung cancer Sister Family Status - Relation Status Age at Mother Father Sister Reason for Visit and Comments: Hospital Follow-up [832] [facility] 30on 07-12-2024 30 The patient [...] to address these barriers include . Normal [facility] ANTI-XA (HEPARIN LEVEL)on HEPARIN UNFRACTIONATED (U/ML) IN PPP BY CHROMOGENIC METHOD 0.60 IU/mL Normal 0.3-0.7 [facility] Comment on above: Order Comment: Check anti-Xa level every 6 hours while on heparin infusion, or per protocol. Result Comment: Radha roxaban and Apixaban will interfere with the anti Xa assay used to monitor UFH and LMWH. Performed By: #### L [id number] #### [facility] ([facility]) [address] [place] [address] BASIC METABOLIC PANELon 06-23 Anion gap [Moles/Vol] 10 mmol/L Normal 7-20 [facility] Comment on above: Performed By: #### L [id number] #### [facility] ([facility]) [address] [place] [address] Calcium [Mass/Vol] 8.8 mg/dL Normal 8.6-10.3 [facility] Comment on above: Performed By: #### L [id number] #### [facility] ([facility]AKER) [address] [place] [address] Chloride [Moles/Vol] 108 mmol/L High 98-107 [facility] Comment on above: Performed By: #### L [id number] #### [facility] ([facility]AKER) [address] [place] [address] CO2 [Moles/Vol] 27 mmol/L Normal 21- [facility] Comment on above: Performed By: #### L [id number] #### [facility] ([facility]ER) [address] [address] Creatinine [Mass/Vol] 0.89 mg/dL Normal 0.60-1.20 [facility] Comment on above: Performed By: #### L [id number] #### [facility] ([facility]) [address] [place] [address] GLOMERULAR FILTRATION RATE ML/MIN/1.73 SQ M.PREDICTED 74.2 mL/min/1.73m*2 Normal >60.0 [facility] Comment on above: Result Comment: [facility]???s estimated glomerular filtration rate (eGFR) [...] group of individuals. Performed By: #### L [id number] #### [facility] ([facility]) [address] [place] [address] Glucose [Mass/Vol] 109 mg/dL High 70-100 [facility] Comment on above: Performed By: #### L [id number] #### [facility] ([facility]) [address] [place] [address] Potassium [Moles/Vol] 3.4 mmol/L Low 3.5-5.1 [facility] Comment on above: Performed By: #### L [id number] #### [facility] ([facility]) [address] [place] [address] Sodium [Moles/Vol] 142 mmol/L Normal 136-145 [facility] Comment on above: Performed By: #### L [id number] #### [facility] ([facility]) [address] [place] [address] Urea nitrogen [Mass/Vol] 11 mg/dL Normal 7-25 [facility] Comment on above: Performed By: #### L [id number] #### [facility] ([facility]) [address] [place] [address] UREA NITROGEN/CREATININE (MASS RATIO) IN SER/PLAS 12.4 Normal [facility] Comment on above: Performed By: #### L [id number] #### [facility] ([facility]) [address] [place] [address] CBC WITH AUTO DIFFERENTIALon 07-12-2024 Basophils (Bld) [#/Vol] 0.04 10*3/uL Normal 0.00-0.20 [facility] Comment on above: Performed By: #### L [id number] #### [facility] ([facility]) [address] [place] [address] Basophils/100 WBC (Bld) 0.6 % Normal 0.0-1.0 [facility] Comment on above: Performed By: #### L [id number] #### [facility] ([facility]) [address] [place] [address] Eosinophils (Bld) [#/Vol] 0.22 10*3/uL Normal 0.00-0.50 [facility] Comment on above: Performed By: #### L [id number] #### [facility] ([facility]) [address] [place] [address] Eosinophils/100 WBC (Bld) 3.5 % Normal 0.0-6.0 [facility] Comment on above: Performed By: #### L [id number] #### [facility] ([facility]) [address] [place] [address] Erythrocyte distribution width (RBC) [Ratio] 14.5 % Normal 11.5-15.0 [facility] Comment on above: Performed By: #### L [id number] #### [facility] ([facility]) [address] [place] [address] ERYTHROCYTE MEAN CORPUSCULAR HEMOGLOBIN CONCENTRATION (G/DL) BY AUTOMATED 32.7 g/dL Normal 32.0-35.0 [facility] Comment on above: Performed By: #### L [id number] #### [facility] ([facility]) [address] [place] [address] Hematocrit (Bld) [Volume fraction] 34.2 % Low 36.0-48.0 [facility] Comment on above: Performed By: #### L [id number] #### [facility] ([facility]) [address] [place] [address] Hemoglobin (Bld) [Mass/Vol] 11.2 g/dL Low 12.0-15.0 [facility] Comment on above: Performed By: #### L [id number] #### [facility] ([facility]) [address] [place] [address] Immature granulocytes (Bld) [#/Vol] 0.01 10*3/uL Normal 0.00-0.20 [facility] Comment on above: Performed By: #### L [id number] #### [facility] ([facility]) [address] [place] [address] Immature granulocytes/100 WBC (Bld) 0.2 % Normal 0.0-1.0 [facility] Comment on above: Performed By: #### L [id number] #### [facility] ([facility]) [address] [place] [address] Lymphocytes (Bld) [#/Vol] 2.37 10*3/uL Normal 1.20-4.00 [facility] Comment on above: Performed By: #### L [id number] #### [facility] ([facility]) [address] [place] [address] Lymphocytes/100 WBC (Bld) 37.8 % Normal 20.0-45.0 [facility] Comment on above: Performed By: #### L [id number] #### [facility] ([facility]) [address] [place] [address] MCH (RBC) [Entitic mass] 27.4 pg Normal 27.0-33.0 [facility] Comment on above: Performed By: #### L [id number] #### [facility] ([facility]) [address] [place] [address] MCV (RBC) [Entitic vol] 83.6 fL Normal 82.0-98.0 [facility] Comment on above: Performed By: #### L [id number] #### [facility] ([facility]) [address] [place] [address] Monocytes (Bld) [#/Vol] 0.43 10*3/uL Normal 0.10-1.00 [facility] Comment on above: Performed By: #### L [id number] #### [facility] ([facility]) [address] [place] [address] Monocytes/100 WBC (Bld) 6.9 % Normal 5.0-12.0 [facility] Comment on above: Performed By: #### L [id number] #### [facility] ([facility]) [address] [place] [address] Neutrophils (Bld) [#/Vol] 3.20 10*3/uL Normal 1.60-7.60 [facility] Comment on above: Performed By: #### L [id number] #### [facility] ([facility]) [address] [place] [address] Neutrophils/100 WBC (Bld) 51.0 % Normal 40.0-72.0 [facility] Comment on above: Performed By: #### L [id number] #### [facility] ([facility]) [address] [place] [address] NRBC (PER 100 WBCS) BY AUTOMATED COUNT 0.0 % Normal 0 [facility] Comment on above: Performed By: #### L [id number] #### [facility] ([facility]) [address] [place] [address] PLATELETS (10*3/UL) IN BLOOD AUTOMATED COUNT 223 10*3/uL Normal 150-400 [facility] Comment on above: Performed By: #### L [id number] #### [facility] ([facility]) [address] [place] [address] RBC (Bld) [#/Vol] 4.09 10*6/uL Normal 3.80-5.00 [facility] Comment on above: Performed By: #### L [id number] #### [facility] ([facility]) [address] [place] [address] WBC (Bld) [#/Vol] 6.27 10*3/uL Normal 4.00-10.60 [facility] Comment on above: Performed By: #### L [id number] #### [facility] ([facility]) [address] [place] [address] MAGNESIUMon 07-12-2024 Magnesium [Mass/Vol] 1.7 mg/dL Low 1.9-2.7 [facility] Comment on above: Performed By: #### L [id number] #### [facility] ([facility]) [address] [place] [address] POCT GLUCOSE METER UNSOLICIT ED RESULTSon 07-12-2024 Glucose [Mass/Vol] 102 mg/dL Normal 70-105 [facility] Comment on above: Order Comment: Waive d Testing in the ED is performed under the ED CLIA certificate #[id number]. Result Comment: [email or web address] Performed By: #### L [id number] ####[facility] ([facility])[address] [address] TROPONIN Ion 07-12-2024 Troponin I.cardiac [Mass/Vol] 0.01 ng/mL Normal 0.00-0.04 [facility] Comment on above: Performed By: #### L [id number] #### [facility] ([facility]) [address] [place] [address] 30on 07-11-2024 30 The patient is Moderately [...] and maintained or improved Outcome: Progressing Normal [facility] 30 The patient is Moderately [...] to address these barriers include . Normal [facility] ALDOSTERONEon 07-11-2024 ALDOSTERONE (NG/DL) IN SER/PLAS 4.9 ng/dL Normal [facility] Comment on above: Result Comment: [...] reference intervals for this test in the [facility] Test [facility] (ANTERIOS). Performed By: [employer] [address] [place] [address] Concrete Pavement Installer: Navneet Simeon MD, PhD CLIA Number: [id number] Performed By: #### L [id number] ####[facility] (BEAKER)[address] [place] [address] ANTI-XA (HEPARIN LEVEL)on HEPARIN UNFRACTIONATED (U/ML) IN PPP BY CHROMOGENIC METHOD 0.42 IU/mL Normal 0.3-0.7 [facility] Comment on above: Order Comment: Check anti-Xa level every 6 hours while on heparin infusion, or per protocol. Result Comment: [place] roxaban and Apixaban will interfere with the anti Xa assay used to monitor UFH and LMWH. Performed By: #### L [id number] ####[facility] (BEAKER)[address] [place] [address] HEPARIN UNFRACTIONATED (U/ML) IN PPP BY CHROMOGENIC METHOD 0.20 IU/mL Low 0.3-0.7 [facility] Comment on above: Order Comment: Waive d Testing in the ED is performed under the ED CLIA certificate #[id number]. Result Comment: [place] roxaban and Apixaban will interfere with the anti Xa assay used to monitor UFH and LMWH. Performed By: #### L [id number] #### [facility] ([facility]) [address] [place] [address] APTTon 07-11-2024 ACTIVATED PARTIAL THROMBOPLASTIN TIME IN PPP BY COAGULATION ASSAY 43.0 Seconds High 25.0-35.0 [facility] Comment on above: Result Comment: Clin ical significance of the APTT is questionable in the presence of heparin. Performed By: #### L [id number] #### [facility] ([facility]) [address] [place] [address] BASIC METABOLIC PANELon 06-23 Anion gap [Moles/Vol] 9 mmol/L Normal 7-20 [facility] Comment on above: Performed By: #### L [id number] ####[facility] ([facility])[address] [place] [address] Calcium [Mass/Vol] 8.8 mg/dL Normal 8.6-10.3 [facility] Comment on above: Performed By: #### L [id number] ####[facility] ([facility])[address] [place] [address] Chloride [Moles/Vol] 108 mmol/L High 98-107 [facility] Comment on above: Performed By: #### L [id number] ####[facility] ([facility])[address] [place] [address] CO2 [Moles/Vol] 28 mmol/L Normal 21-31 [facility] Comment on above: Performed By: #### L [id number] ####[facility] ([facility])[address] [place] [address] Creatinine [Mass/Vol] 1.09 mg/dL Normal 0.60-1.20 [facility] Comment on above: Performed By: #### L [id number] ####[facility] (BEAKER)[address] [place] [address] GLOMERULAR FILTRATION RATE ML/MIN/1.73 SQ M.PREDICTED 58.2 mL/min/1.73m*2 Low >60.0 [facility] Comment on above: Result Comment: [facility]???s estimated glomerular filtration rate (eGFR) [...] of individuals. Performed By: #### L [id number] ####[facility] ([facility])[address] [place] [address] Glucose [Mass/Vol] 113 mg/dL High 70-100 [facility] Comment on above: Performed By: #### L [id number] ####[facility] ([facility]AKER)[address] [place] [address] Potassium [Moles/Vol] 3.4 mmol/L Low 3.5-5.1 [facility] Comment on above: Performed By: #### L [id number] ####[facility] ([facility])[address] [place] [address] Sodium [Moles/Vol] 142 mmol/L Normal 136-145 [facility] Comment on above: Performed By: #### L [id number] ####[facility] ([facility]AKER)[address] [place] [address] Urea nitrogen [Mass/Vol] 14 mg/dL Normal 7-25 [facility] Comment on above: Performed By: #### L [id number] ####[facility] ([facility]ER)[address] [place] [address] UREA NITROGEN/CREATININE (MASS RATIO) IN SER/PLAS 12.8 Normal [facility] Comment on above: Performed By: #### L [id number] ####[facility] (BEAKER)[address] [place] [address] CBC WITH AUTO DIFFERENTIALon 07-11-2024 Basophils (Bld) [#/Vol] 0.04 10*3/uL Normal 0.00-0.20 [facility] Comment on above: Performed By: #### L [id number] #### [facility] ([facility]ER) [address] [place] [address] Basophils/100 WBC (Bld) 0.6 % Normal 0.0-1.0 [facility] Comment on above: Performed By: #### L [id number] #### [facility] ([facility]ER) [address] [place] [address] Eosinophils (Bld) [#/Vol] 0.16 10*3/uL Normal 0.00-0.50 [facility] Comment on above: Performed By: #### L [id number] #### [facility] ([facility]) [address] [place] [address] Eosinophils/100 WBC (Bld) 2.2 % Normal 0.0-6.0 [facility] Comment on above: Performed By: #### L [id number] #### [facility] ([facility]) [address] [place] [address] Erythrocyte distribution width (RBC) [Ratio] 14.6 % Normal 11.5-15.0 [facility] Comment on above: Performed By: #### L [id number] #### [facility] ([facility]) [address] [place] [address] ERYTHROCYTE MEAN CORPUSCULAR HEMOGLOBIN CONCENTRATION (G/DL) BY AUTOMATED 32.0 g/dL Normal 32.0-35.0 [facility] Comment on above: Performed By: #### L [id number] #### [facility] ([facility]) [address] [place] [address] Hematocrit (Bld) [Volume fraction] 36.2 % Normal 36.0-48.0 [facility] Comment on above: Performed By: #### L [id number] #### [facility] ([facility]) [address] [place] [address] Hemoglobin (Bld) [Mass/Vol] 11.6 g/dL Low 12.0-15.0 [facility] Comment on above: Performed By: #### L [id number] #### [facility] ([facility]) [address] [place] [address] Immature granulocytes (Bld) [#/Vol] 0.02 10*3/uL Normal 0.00-0.20 [facility] Comment on above: Performed By: #### L [id number] #### [facility] ([facility]) [address] [place] [address] Immature granulocytes/100 WBC (Bld) 0.3 % Normal 0.0-1.0 [facility] Comment on above: Performed By: #### L [id number] #### [facility] ([facility]) [address] [place] [address] Lymphocytes (Bld) [#/Vol] 2.34 10*3/uL Normal 1.20-4.00 [facility] Comment on above: Performed By: #### L [id number] #### [facility] ([facility]) [address] [place] [address] Lymphocytes/100 WBC (Bld) 32.6 % Normal 20.0-45.0 [facility] Comment on above: Performed By: #### L [id number] #### [facility] ([facility]) [address] [place] [address] MCH (RBC) [Entitic mass] 27.2 pg Normal 27.0-33.0 [facility] Comment on above: Performed By: #### L [id number] #### [facility] ([facility]) [address] [place] [address] MCV (RBC) [Entitic vol] 85.0 fL Normal 82.0-98.0 [facility] Comment on above: Performed By: #### L [id number] #### [facility] ([facility]ER) [address] [place] [address] Monocytes (Bld) [#/Vol] 0.49 10*3/uL Normal 0.10-1.00 [facility] Comment on above: Performed By: #### L [id number] #### [facility] ([facility]) [address] [place] [address] Monocytes/100 WBC (Bld) 6.8 % Normal 5.0-12.0 [facility] Comment on above: Performed By: #### L [id number] #### [facility] ([facility]) [address] [place] [address] Neutrophils (Bld) [#/Vol] 4.13 10*3/uL Normal 1.60-7.60 [facility] Comment on above: Performed By: #### L [id number] #### [facility] ([facility]) [address] [place] [address] Neutrophils/100 WBC (Bld) 57.5 % Normal 40.0-72.0 [facility] Comment on above: Performed By: #### L [id number] #### [facility] ([facility]) [address] [place] [address] NRBC (PER 100 WBCS) BY AUTOMATED COUNT 0.0 % Normal 0 [facility] Comment on above: Performed By: #### L [id number] #### [facility] ([facility]) [address] [place] [address] PLATELETS (10*3/UL) IN BLOOD AUTOMATED COUNT 245 10*3/uL Normal 150-400 [facility] Comment on above: Performed By: #### L [id number] #### [facility] ([facility]) [address] [place] [address] RBC (Bld) [#/Vol] 4.26 10*6/uL Normal 3.80-5.00 [facility] Comment on above: Performed By: #### L [id number] #### [facility] ([facility]) [address] [place] [address] WBC (Bld) [#/Vol] 7.18 10*3/uL Normal 4.00-10.60 [facility] Comment on above: Performed By: #### L [id number] #### [facility] QIANA LALA) [place] [address] CONSULTon 07-11-2024 CONSULT -- Attestation signed by [...] Brown is the endocrine surgeon in the [place] area that would be most appropriate and [...] [place] Cardiology and endocrine surgery and endocrinology Meseret Apodaca MD Cardiology Consult Note Reason for Consult: Chest pain HPI: Aby Madrigal is a 59 y.o. female patient is presenting as a transfer from [facility] for the evaluation of chest pain. [...] medical history of Abnormal ECG, Diabetes mellitus ([facility]), Hyperlipidemia, Hypertension, Obstructive sleep apnea, Panic attacks, and Stroke ([facility]). Surgical History She has a past [...] Value Ventricular Rate 56 Atrial Rate 56 RI Interval 180 QRS DURATION 94 QT Interval 430 QTC (more content not included)... Normal [facility] EDPROVon 07-11-2024 EDPROV HPI Chief [...] Pt states she was [facility]fered [facility] to [facility]ology. Pt states she had a cardiac stent placed last week. She denies fever, coughing, vomiting, abdominal pain. She admits diarrhea. She felt better when given ativan and worse when she was given morphine. She has had her gallbladder removed. History provided by: Patient professor of philosophy used: No Chest Pain Associated symptoms: no abdominal pain, no cough, no fever and no vomiting Pinch Coma Scale Score: 15 Patient History Past [...] signing this emergency patient record, the Emergency Physician/PRODUCTION SUPERINTENDENT HYDRO/PA-C attests that all entries made into the electronic medical record by the scribe prior to the Physician/PRODUCTION SUPERINTENDENT HYDRO/PA-C signature reflect an accurate accounting of the evaluation and care rendered by that Emergency Physician/PRODUCTION SUPERINTENDENT HYDRO/PA-C. The Emergency Physician/PRODUCTION SUPERINTENDENT HYDRO/PA-C assumes full responsibility for those entries. The Emergency Physician/PRODUCTION SUPERINTENDENT HYDRO/PA-C also attests that any patient testing or treatment that was instituted by nursing staff. [facility] EDPROV HPI Chief Complaint Patient [...] Pt states she was trasnfered here from [facility] to be transferred to cardiology. Pt states she had a cardiac stent placed last week. She denies fever, coughing, vomiting, abdominal pain. She admits diarrhea. She felt better when given ativan and worse when she was given morphine. She has had her gallbladder removed. History provided by: Patient professor of philosophy used: No Chest Pain Associated symptoms: no abdominal pain, no cough, no fever and no vomiting Musa Coma Scale Score: 15 Patient History Past Medical History: Diagnosis Date Abnormal ECG Diabetes mellitus ([facility]) Hyperlipidemia Hypertension Obstructive sleep apnea Panic attacks Stroke ([facility]) Past Surgical History: Procedure Laterality Date [...] 07/11/24 1256 NSTEMI (non-ST elevated myocardial infarction) ([facility]) Medical Decision Making Amount and/or Complexity of Data Reviewed Labs: ordered. Decision-making details documented in ED Course. ECG/medicine tests: ordered and independent interpretation performed. Decision-making details documented in ED Course. Risk Drug therapy requiring intensive monitoring for toxicity. Decision regarding hospitalization. Minor surgery with identified risk factors. I, Basilia diallo (more content not included)... Invalid Interpretation Code [facility] POCT GLUCOSE METER UNSOLICIT ED RESULTSon 07-11-2024 Glucose [Mass/Vol] 122 mg/dL High 70-105 [facility] Comment on above: Order Comment: Waive d Testing in the ED is performed under the ED CLIA certificate #[id number]. Result Comment: [email or web address] Performed By: #### L [id number] #### [facility] ([facility]AKER) [address] [place] [address] PROTIME-INRon 07-11-2024 INR IN PPP BY COAGULATION ASSAY 1.00 Normal 0.90-1.10 [facility] Comment on above: Result Comment: [...] RANGE. CHEST 1995;108:231S-246S. Performed By: #### L [id number] #### [facility] ([facility]ER) [address] [place] [address] PROTHROMBIN TIME (PT) IN PPP BY COAGULATION ASSAY 13.2 Seconds Normal 12.3-14.8 [facility] Comment on above: Performed By: #### L [id number] #### [facility] ([facility]ER) [address] [place] [address] RENIN ACTIVITYon 07-11-2024 RENIN ACTIVITY <0.1 Normal [facility] Comment on above: Result Comment: INTE RPRETIVE INFORMATION: Renin Activity Adult, Normal sodium diet: Supine ................. 0.2-1.6 ng/mL/hr Upright ................ 0.5-4.0 ng/mL/hr Children, Normal sodium diet, Supine: [place] (1-7 days) ..... 2.0-35.0 ng/mL/hr Cord blood [...] developed and its performance characteristics determined by [employer]. It has not been cleared or approved by the [place] Food and Drug Administration. This test was performed in a CLIA certified laboratory and is intended for clinical purposes. Performed By: [employer] [address] [place] [id number] Con[employer] Pave[employer] Installer: Navneet Simeon MD, PhD CLIA Number: [id number] Performed By: #### L [id number] #### [facility] ([facility]ER) [address] [place] [address] TROPONIN Ion 07-11-2024 Troponin I.cardiac [Mass/Vol] 0.01 ng/mL Normal 0.00-0.04 [facility] Comment on above: Performed By: #### L [id number] ####[facility] ([facility])[address] [place] [address] Office Visiton 07-10-2024 Follow-up visit [id number] RohanAby Cristina 1965 F Date Provider Department Center 07/10/2024 [id number] VAZQUEZ [facility] Family History Problem Relation Age of Onset Lung cancer Mother No Known Problems Father Lung cancer Sister Family Status - Relation Status Age at Mother Father Sister Level of Service:51955 [place] OFFICE/OUTPATIENT ESTABLISHED MOD MDM 30 MIN Reason for Visit and Comments: Coronary Artery Disease [187] Post-Cath [731] Normal [facility] 36on 07-03-2024 36 Post Discharge Call Good morning, I am Ginny Garcia, RN a lead nurse from [facility]. I am calling you to follow up [...] Patient Name Aby Madrigal Date 07/03/24 Normal [facility] Telephoneon 07-03-2024 Telephone [id number] Aby Madrigal 1965 F Date Provider Department Center 07/03/2024 Adela-GINNY GARCIA [facility] Family History Problem Relation Age of Onset Lung cancer Mother No Known Problems Father Lung cancer Sister Family Status - Relation Status Age at Mother Father Sister Reason for Visit and Comments: Hospital Follow-up [832] Normal [facility] 30on 07-01-2024 30 The patient [...] and maintained or improved Outcome: Progressing Normal [facility] BASIC METABOLIC PANELon 06-22 Anion gap [Moles/Vol] 14 mmol/L Normal 7-20 [facility] Comment on above: Performed By: #### L [id number] #### [facility] ([facility]) [address] [place] [address] Calcium [Mass/Vol] 8.2 mg/dL Low 8.6-10.3 [facility] Comment on above: Performed By: #### L [id number] #### [facility] ([facility]) [address] [place] [address] Chloride [Moles/Vol] 106 mmol/L Normal 98-107 [facility] Comment on above: Performed By: #### L [id number] #### [facility] ([facility]) [address] [place] [address] CO2 [Moles/Vol] 25 mmol/L Normal 21-31 [facility] Comment on above: Performed By: #### L [id number] #### [facility] ([facility]) [address] [place] [address] Creatinine [Mass/Vol] 0.91 mg/dL Normal 0.60-1.20 [facility] Comment on above: Performed By: #### L [id number] #### [facility] ([facility]) [address] [place] [address] GLOMERULAR FILTRATION RATE ML/MIN/1.73 SQ M.PREDICTED 72.2 mL/min/1.73m*2 Normal >60.0 [facility] Comment on above: Result Comment: [facility]???s estimated glomerular filtration rate (eGFR) [...] individuals. Performed By: #### L [id number] #### [facility] ([facility]) [address] [place] [address] Glucose [Mass/Vol] 101 mg/dL High 70-100 [facility] Comment on above: Performed By: #### L [id number] #### [facility] ([facility]ER) [address] [place] [address] Potassium [Moles/Vol] 3.5 mmol/L Normal 3.5-5.1 [facility] Comment on above: Performed By: #### L [id number] #### [facility] ([facility]) [address] [place] [address] Sodium [Moles/Vol] 141 mmol/L Normal 136-145 [facility] Comment on above: Performed By: #### L [id number] #### [facility] ([facility]ER) [address] [place] [address] Urea nitrogen [Mass/Vol] 13 mg/dL Normal 7-25 [facility] Comment on above: Performed By: #### L [id number] #### [facility] ([facility]) [address] [place] [address] UREA NITROGEN/CREATININE (MASS RATIO) IN SER/PLAS 14.3 Normal [facility] Comment on above: Performed By: #### L [id number] #### [facility] ([facility]) [address] [place] [address] CBCon 07-01-2024 Erythrocyte distribution width (RBC) [Ratio] 15.4 % High 11.5-15.0 [facility] Comment on above: Performed By: #### L [id number] ####[facility] ([facility])[address] [place] [address] ERYTHROCYTE MEAN CORPUSCULAR HEMOGLOBIN CONCENTRATION (G/DL) BY AUTOMATED 32.1 g/dL Normal 32.0-35.0 [facility] Comment on above: Performed By: #### L [id number] ####[facility] ([facility])[address] [place] [address] Hematocrit (Bld) [Volume fraction] 38.6 % Normal 36.0-48.0 [facility] Comment on above: Performed By: #### L [id number] ####[facility] ([facility])[address] [place] [address] Hemoglobin (Bld) [Mass/Vol] 12.4 g/dL Normal 12.0-15.0 [facility] Comment on above: Performed By: #### L [id number] ####[facility] ([facility])[address] [place] [address] MCH (RBC) [Entitic mass] 26.9 pg Low 27.0-33.0 [facility] Comment on above: Performed By: #### L [id number] ####[facility] ([facility])[address] [place] [address] MCV (RBC) [Entitic vol] 83.7 fL Normal 82.0-98.0 [facility] Comment on above: Performed By: #### L [id number] ####[facility] ([facility])[address] [place] [address] PLATELETS (10*3/UL) IN BLOOD AUTOMATED COUNT 238 10*3/uL Normal 150-400 [facility] Comment on above: Performed By: #### L [id number] ####[facility] ([facility])[address] [facility] [place] [address] RBC (Bld) [#/Vol] 4.61 10*6/uL Normal 3.80-5.00 [facility] Comment on above: Performed By: #### L [id number] ####[facility] ([facility])[address] [place] [address] WBC (Bld) [#/Vol] 7.04 10*3/uL Normal 4.00-10.60 [facility] Comment on above: Performed By: #### L [id number] ####[facility] ([facility])[address] [place] [address] LIPID PANELon 07-01-2024 CHOL/HDL 3.8 mg/dL Normal [facility] Comment on above: Performed By: #### L [id number] #### [facility] ([facility]AKER) [address] [place] [address] Cholesterol [Mass/Vol] 128 mg/dL Normal 120-200 [facility] Comment on above: Performed By: #### L [id number] #### [facility] ([facility]) [address] [place] [address] Magnesium [Mass/Vol] 87 mg/dL Normal 40-149 [facility] Comment on above: Result Comment: TRIG LYCERIDE REFERENCE RANGE: 20 YEARS AND OLDER CARDIOVASCULAR RISK LESS THAN 150 mg/dL LOW RISK 150 TO 199 mg/dL BORDERLINE RISK 200 mg/dL AND GREATER HIGH RISK Performed By: #### L [id number] #### [facility] ([facility]) [address] [place] [address] Magnesium [Mass/Vol] 77 mg/dL Normal 0-160 [facility] Comment on above: Performed By: #### L [id number] #### [facility] ([facility]) [address] [place] [address] Magnesium [Mass/Vol] 34 mg/dL Normal 23-92 [facility] Comment on above: Performed By: #### L [id number] #### [facility] ([facility]) [address] [place] [address] NON HDL CHOL. (LDL+VLDL) 94 Normal [facility] Comment on above: Performed By: #### L [id number] #### [facility] ([facility]) [address] [place] [address] TOTAL VLDL-C 17 mg/dL Normal 0-40 [facility] Comment on above: Performed By: #### L [id number] #### [facility] ([facility]) [address] [facility] [place] [address] MAGNESIUMon 07-01-2024 Magnesium [Mass/Vol] 2.0 mg/dL Normal 1.9-2.7 [facility] Comment on above: Performed By: #### L [id number] ####[facility] ([facility])[address] [place] [address] NURSNOTEon 07-01-2024 NURSNOTE Discharge instructio ns given, reviewed, questions, answered, signed, copy received. Normal [facility] POCT GLUCOSE METER UNSOLICIT ED RESULTSon 07-01-2024 Glucose [Mass/Vol] 124 mg/dL High 70-105 [facility] Comment on above: Order Comment: Waive d Testing in the ED is performed under the ED CLIA certificate #[id number]. Result Comment: [email or web address] Performed By: #### L [id number] #### [facility] ([facility]ER) [address] [place] [address] Glucose [Mass/Vol] 106 mg/dL High 70-105 [facility] Comment on above: Order Comment: Waive d Testing in the ED is performed under the ED CLIA certificate #[id number]. Result Comment: [email or web address] Performed By: #### L [id number] #### [facility] ([facility]) [address] [facility] [place] [address] TROPONIN Ion 07-01-2024 Troponin I.cardiac [Mass/Vol] 0.09 ng/mL High 0.00-0.04 [facility] Comment on above: Performed By: #### L [id number] #### [facility] ([facility]) [address] [facility] [place] [address] 30on 06-30-2024 30 The patient is Moderately Stable - Low risk of patient condition declining or worsening The patient's goals for the shift include comfort, rest The clinical goals for the shift include stable vitals, comfort Problem: Pain - Adult Goal: Verbalizes/displays adequate comfort level or baseline comfort level Outcome: Not Progressing Normal [facility] 30 Daily Case Managemen t [...] PT Recommendations: OT Recommendations: New Consults: Normal [facility] 30 The patient is Moderately Stable - Low risk of patient condition declining or worsening The patient's goals for the shift include COMFORT The clinical goals for the shift include VSS Over the shift, the patient did not make progress toward the following goals. Barriers to progression include . Recommendations to address these barriers include . Normal [facility] ANTI-XA (HEPARIN LEVEL)on HEPARIN UNFRACTIONATED (U/ML) IN PPP BY CHROMOGENIC METHOD 0.64 IU/mL Normal 0.3-0.7 [facility] Comment on above: Order Comment: Check anti-Xa level every 6 hours while on heparin infusion, or per protocol. Result Comment: [place] roxaban and Apixaban will interfere with the anti Xa assay used to monitor UFH and LMWH. Performed By: #### L [id number] #### [facility] ([facility]) [address] [place] [address] BASIC METABOLIC PANELon 08 Anion gap [Moles/Vol] 11 mmol/L Normal 7-20 [facility] Comment on above: Performed By: #### L [id number] ####[facility] ([facility]AKER)[address] [place] [address] Calcium [Mass/Vol] 8.3 mg/dL Low 8.6-10.3 [facility] Comment on above: Performed By: #### L [id number] ####[facility] (BEAKER)[address] [place] [address] Chloride [Moles/Vol] 110 mmol/L High 98-107 [facility] Comment on above: Performed By: #### L [id number] ####[facility] ([facility]ER)[address] [place] [address] CO2 [Moles/Vol] 26 mmol/L Normal 21-31 [facility] Comment on above: Performed By: #### L [id number] ####[facility] ([facility]ER)[address] [place] [address] Creatinine [Mass/Vol] 0.81 mg/dL Normal 0.60-1.20 [facility] Comment on above: Performed By: #### L [id number] ####[facility] ([facility])[address] [place] [address] GLOMERULAR FILTRATION RATE ML/MIN/1.73 SQ M.PREDICTED 83.1 mL/min/1.73m*2 Normal >60.0 [facility] Comment on above: Result Comment: [facility]???s estimated glomerular filtration rate (eGFR) [...] of individuals. Performed By: #### L [id number] ####[facility] ([facility])[address] [place] [address] Glucose [Mass/Vol] 110 mg/dL High 70-100 [facility] Comment on above: Performed By: #### L [id number] ####[facility] ([facility])[address] [place] [address] Potassium [Moles/Vol] 3.7 mmol/L Normal 3.5-5.1 [facility] Comment on above: Performed By: #### L [id number] ####[facility] ([facility])[address] [place] [address] Sodium [Moles/Vol] 143 mmol/L Normal 136-145 [facility] Comment on above: Performed By: #### L [id number] ####[facility] ([facility])[address] [place] [address] Urea nitrogen [Mass/Vol] 10 mg/dL Normal 7-25 [facility] Comment on above: Performed By: #### L [id number] ####[facility] ([facility])[address] [place] [address] UREA NITROGEN/CREATININE (MASS RATIO) IN SER/PLAS 12.3 Normal [facility] Comment on above: Performed By: #### L [id number] ####[facility] ([facility])[address] [place] [address] CBCon 06-30-2024 Erythrocyte distribution width (RBC) [Ratio] 15.3 % High 11.5-15.0 [facility] Comment on above: Performed By: #### L [id number] ####[facility] ([facility])[address] [place] [address] ERYTHROCYTE MEAN CORPUSCULAR HEMOGLOBIN CONCENTRATION (G/DL) BY AUTOMATED 31.3 g/dL Low 32.0-35.0 [facility] Comment on above: Performed By: #### L [id number] ####[facility] ([facility])[address] [place] [address] Hematocrit (Bld) [Volume fraction] 36.7 % Normal 36.0-48.0 [facility] Comment on above: Performed By: #### L [id number] ####[facility] ([facility])[address] [place] [address] Hemoglobin (Bld) [Mass/Vol] 11.5 g/dL Low 12.0-15.0 [facility] Comment on above: Performed By: #### L [id number] ####[facility] ([facility])[address] [place] [address] MCH (RBC) [Entitic mass] 26.9 pg Low 27.0-33.0 [facility] Comment on above: Performed By: #### L [id number] ####[facility] ([facility])[address] [place] [address] MCV (RBC) [Entitic vol] 85.7 fL Normal 82.0-98.0 [facility] Comment on above: Performed By: #### L [id number] ####[facility] ([facility])[address] [place] [address] PLATELETS (10*3/UL) IN BLOOD AUTOMATED COUNT 243 10*3/uL Normal 150-400 [facility] Comment on above: Performed By: #### L [id number] ####[facility] ([facility])[address] [place] [address] RBC (Bld) [#/Vol] 4.28 10*6/uL Normal 3.80-5.00 [facility] Comment on above: Performed By: #### L [id number] ####[facility] ([facility])[address] [facility] [address] WBC (Bld) [#/Vol] 7.41 10*3/uL Normal 4.00-10.60 [facility] Comment on above: Performed By: #### L [id number] ####[facility] ([facility])[address] [facility] [address] CONSULTon 06-30-2024 CONSULT Cardiology Consult Note Reason for Consult: NSTEMI, transfer from [facility] HPI: Aby Madrigal, a 59 y.o. female patient, is transferred from [facility] for continuity of care. Past medical history includes: HTN History of TIA DMII HLD SURESH Overweight Patient reports that 3 days ago, she woke up in the mid of the night with indigestion, and a feeling fullness, but no pressure like chest pain. She presented to [facility], where she was found [...] Value Ventricular Rate 71 Atrial Rate 71 RI Interval 176 QRS DURATION 92 QT Interval 424 QTC CALCULATION(BAZETT) 460 P [place] 52 R-[place] 19 T Wave [place] 164 Impression Normal sinus rhythm Left ventricular [...] Normal sinu (more content not included)... Normal [facility] HPon 06-30-2024 H&P reviewed. The patient was examined and there are no changes to the H&P. 59 y.o. year old female with a PMHx significant for DM2, hypertension presents a direct mission from [facility] with a chief complaint of chest [...] to proceed. Signed, Yris Oakley MD PGY-4 Site Supervisor Pager: [phone] Normal [facility] POCT GLUCOSE METER UNSOLICIT ED RESULTSon 06-30-2024 Glucose [Mass/Vol] 170 mg/dL High 70-105 [facility] Comment on above: Order Comment: Waive d Testing in the ED is performed under the ED CLIA certificate #[id number]. Result Comment: [email or web address] Performed By: #### L [id number] #### [facility] ([facility]) [address] [place] [address] Glucose [Mass/Vol] 129 mg/dL High 70-105 [facility] Comment on above: Order Comment: Waive d Testing in the ED is performed under the ED CLIA certificate #[id number]. Result Comment: [email or web address] Performed By: #### L [id number] #### [facility] ([employer]) [address] [place] [address] Glucose [Mass/Vol] 167 mg/dL High 70-105 [facility] Comment on above: Order Comment: Waive d Testing in the ED is performed under the ED CLIA certificate #[id number]. Result Comment: [email or web address] Performed By: #### L [id number] #### [facility] ([facility]) [address] [place] [address] TROPONIN Ion 06-30-2024 Troponin I.cardiac [Mass/Vol] 0.07 ng/mL High 0.00-0.04 [facility] Comment on above: Performed By: #### L [id number] #### [facility] ([facility]) [address] [place] [address] Troponin I.cardiac [Mass/Vol] 0.10 ng/mL High 0.00-0.04 [facility] Comment on above: Performed By: #### L [id number] #### [facility] ([facility]) [address] [place] [address] Troponin I.cardiac [Mass/Vol] 0.11 ng/mL Critically high 0.00-0.04 [facility] Comment on above: Result Comment: M-TR OPONIN INITIAL CRITICAL HIGH; RESPUN AND RETESTED Performed By: #### L [id number] ####[facility] ([facility])[address] [place] [address] 30on 06-29-2024 30 The patient is Moderately Stable - Low risk of patient condition declining or worsening The patient's goals for the shift include COMFORT The clinical goals for the shift include VSS Normal [facility] APTTon 06-29-2024 ACTIVATED PARTIAL THROMBOPLASTIN TIME IN PPP BY COAGULATION ASSAY 34.5 Seconds Normal 25.0-35.0 [facility] Comment on above: Order Comment: Basel ine aPTT before initiating heparin infusion. Result Comment: Clin ical significance of the APTT is questionable in the presence of heparin. Performed By: #### L [id number] #### [facility] ([facility]) [address] [place] [address] B-TYPE NATRIURETIC PEPTIDEon 06-29-2024 Natriuretic peptide B (Bld) [Mass/Vol] 222 pg/mL High 0-100 [facility] Comment on above: Performed By: #### L [id number] ####[facility] ([facility])[address] [place] [address] CBC WITH AUTO DIFFERENTIALon 06-29-2024 Basophils (Bld) [#/Vol] 0.05 10*3/uL Normal 0.00-0.20 [facility] Comment on above: Performed By: #### L [id number] ####[facility] ([facility])[address] [place] [address] Basophils/100 WBC (Bld) 0.6 % Normal 0.0-1.0 [facility] Comment on above: Performed By: #### L [id number] ####[facility] (BEAKER)[address] [place] [address] Eosinophils (Bld) [#/Vol] 0.18 10*3/uL Normal 0.00-0.50 [facility] Comment on above: Performed By: #### L [id number] ####[facility] ([facility]ER)[address] [place] [address] Eosinophils/100 WBC (Bld) 2.1 % Normal 0.0-6.0 [facility] Comment on above: Performed By: #### L [id number] ####[facility] ([facility]ER)[address] [place] [address] Erythrocyte distribution width (RBC) [Ratio] 14.9 % Normal 11.5-15.0 [facility] Comment on above: Performed By: #### L [id number] ####[facility] ([facility])[address] [place] [address] ERYTHROCYTE MEAN CORPUSCULAR HEMOGLOBIN CONCENTRATION (G/DL) BY AUTOMATED 32.9 g/dL Normal 32.0-35.0 [facility] Comment on above: Performed By: #### L [id number] ####[facility] ([facility])[address] [place] [address] Hematocrit (Bld) [Volume fraction] 35.9 % Low 36.0-48.0 [facility] Comment on above: Performed By: #### L [id number] ####[facility] ([facility])[address] [place] [address] Hemoglobin (Bld) [Mass/Vol] 11.8 g/dL Low 12.0-15.0 [facility] Comment on above: Performed By: #### L [id number] ####[facility] ([facility])[address] [place] [address] Immature granulocytes (Bld) [#/Vol] 0.03 10*3/uL Normal 0.00-0.20 [facility] Comment on above: Performed By: #### L [id number] ####[facility] ([facility])[address] [place] [address] Immature granulocytes/100 WBC (Bld) 0.3 % Normal 0.0-1.0 [facility] Comment on above: Performed By: #### L [id number] ####[facility] ([facility])[address] [place] [address] Lymphocytes (Bld) [#/Vol] 2.02 10*3/uL Normal 1.20-4.00 [facility] Comment on above: Performed By: #### L [id number] ####[facility] ([facility])[address] [place] [address] Lymphocytes/100 WBC (Bld) 23.5 % Normal 20.0-45.0 [facility] Comment on above: Performed By: #### L [id number] ####[facility] ([facility])[address] [place] [address] MCH (RBC) [Entitic mass] 27.2 pg Normal 27.0-33.0 [facility] Comment on above: Performed By: #### L [id number] ####[facility] ([facility])[address] [place] [address] MCV (RBC) [Entitic vol] 82.7 fL Normal 82.0-98.0 [facility] Comment on above: Performed By: #### L [id number] ####[facility] ([facility])[address] [place] [address] Monocytes (Bld) [#/Vol] 0.56 10*3/uL Normal 0.10-1.00 [facility] Comment on above: Performed By: #### L [id number] ####[facility] ([facility])[address] [place] [address] Monocytes/100 WBC (Bld) 6.5 % Normal 5.0-12.0 [facility] Comment on above: Performed By: #### L [id number] ####[facility] ([facility])[address] [place] [address] Neutrophils (Bld) [#/Vol] 5.74 10*3/uL Normal 1.60-7.60 [facility] Comment on above: Performed By: #### L [id number] ####[facility] ([facility])[address] [place] [address] Neutrophils/100 WBC (Bld) 67.0 % Normal 40.0-72.0 [facility] Comment on above: Performed By: #### L [id number] ####[facility] ([facility])[address] [place] [address] NRBC (PER 100 WBCS) BY AUTOMATED COUNT 0.0 % Normal 0 [facility] Comment on above: Performed By: #### L [id number] ####[facility] ([facility])[address] [place] [address] PLATELETS (10*3/UL) IN BLOOD AUTOMATED COUNT 233 10*3/uL Normal 150-400 [facility] Comment on above: Performed By: #### L [id number] ####[facility] ([facility])[address] [place] [address] RBC (Bld) [#/Vol] 4.34 10*6/uL Normal 3.80-5.00 [facility] Comment on above: Performed By: #### L [id number] ####[facility] ([facility])[address] [place] [address] WBC (Bld) [#/Vol] 8.58 10*3/uL Normal 4.00-10.60 [facility] Comment on above: Performed By: #### L [id number] ####[facility] ([facility])[address] [place] [address] COMPREHENSIVE METABOLIC PANE Alec 06-29-2024 Albumin [Mass/Vol] 3.8 g/dL Normal 3.5-5.7 [facility] Comment on above: Performed By: #### L [id number] #### [facility] (BEAKER) [address] [place] [address] ALP [Catalytic activity/Vol] 64 U/L Normal 34-104 [facility] Comment on above: Performed By: #### L [id number] #### [facility] ([facility]) [address] [place] [address] ALT [Catalytic activity/Vol] 35 U/L Normal 7-52 [facility] Comment on above: Performed By: #### L [id number] #### [facility] ([facility]) [address] [place] [address] Anion gap [Moles/Vol] 12 mmol/L Normal 7-20 [facility] Comment on above: Performed By: #### L [id number] #### [facility] ([facility]) [address] [place] [address] AST [Catalytic activity/Vol] 21 U/L Normal 13-39 [facility] Comment on above: Performed By: #### L [id number] #### [facility] ([facility]) [address] [place] [address] Bilirubin [Mass/Vol] 0.4 mg/dL Normal 0.3-1.0 [facility] Comment on above: Performed By: #### L [id number] #### [facility] ([facility]) [address] [place] [address] Calcium [Mass/Vol] 8.5 mg/dL Low 8.6-10.3 [facility] Comment on above: Performed By: #### L [id number] #### [facility] ([facility]) [address] [place] [address] Chloride [Moles/Vol] 112 mmol/L High 98-107 [facility] Comment on above: Performed By: #### L [id number] #### [facility] ([facility]ER) [address] [place] [address] CO2 [Moles/Vol] 22 mmol/L Normal 21-31 [facility] Comment on above: Performed By: #### L [id number] #### [facility] ([facility]) [address] [place] [address] Creatinine [Mass/Vol] 0.92 mg/dL Normal 0.60-1.20 [facility] Comment on above: Performed By: #### L [id number] #### [facility] ([facility]) [address] [place] [address] GLOMERULAR FILTRATION RATE ML/MIN/1.73 SQ M.PREDICTED 71.3 mL/min/1.73m*2 Normal >60.0 [facility] Comment on above: Result Comment: [facility]???s estimated glomerular filtration rate (eGFR) [...] individuals. Performed By: #### L [id number] #### [facility] ([facility]) [address] [place] [address] Glucose [Mass/Vol] 108 mg/dL High 70-100 [facility] Comment on above: Performed By: #### L [id number] #### [facility] ([facility]) [address] [place] [address] Potassium [Moles/Vol] 3.7 mmol/L Normal 3.5-5.1 [facility] Comment on above: Performed By: #### L [id number] #### [facility] ([facility]) [address] [place] [address] Protein [Mass/Vol] 6.1 g/dL Normal 6.0-8.3 [facility] Comment on above: Performed By: #### L [id number] #### [facility] ([facility]) [address] [place] [address] Sodium [Moles/Vol] 142 mmol/L Normal 136-145 [facility] Comment on above: Performed By: #### L [id number] #### [facility] ([facility]) [address] [place] [address] Urea nitrogen [Mass/Vol] 11 mg/dL Normal 7-25 [facility] Comment on above: Performed By: #### L [id number] #### [facility] ([facility]) [address] [place] [address] UREA NITROGEN/CREATININE (MASS RATIO) IN SER/PLAS 12.0 Normal [facility] Comment on above: Performed By: #### L [id number] #### [facility] ([facility]) [address] [place] [address] MAGNESIUMon 06-29-2024 Magnesium [Mass/Vol] 1.7 mg/dL Low 1.9-2.7 [facility] Comment on above: Performed By: #### L [id number] ####[facility] ([facility])[address] [place] [address] PHOSPHORUSon 06-29-2024 Magnesium [Mass/Vol] 2.9 mg/dL Normal 2.5-5.0 [facility] Comment on above: Performed By: #### L [id number] #### [facility] ([facility]) [address] [place] [address] PROTIME-INRon 06-29-2024 INR IN PPP BY COAGULATION ASSAY 0.99 Normal 0.90-1.10 [facility] Comment on above: Result Comment: [...] RANGE. CHEST 1995;108:231S-246S. Performed By: #### L [id number] #### [facility] ([facility]) [address] [place] [address] PROTHROMBIN TIME (PT) IN PPP BY COAGULATION ASSAY 13.1 Seconds Normal 12.3-14.8 [facility] Comment on above: Performed By: #### L [id number] #### [facility] ([facility]) [address] [place] [address] TROPONIN Ion 06-29-2024 Troponin I.cardiac [Mass/Vol] 0.10 ng/mL High 0.00-0.04 [facility] Comment on above: Performed By: #### L [id number] #### [facility] ([facility]) [address] [place] [address] Office Visiton 06-21-2024 Follow-up visit [id number] Aby Madrigal 1965 F Date Provider Department Center 06/21/2024 GOMEZ KENDALL RIAZ [place] Family History Problem Relation Age of Onset Lung cancer Mother No Known Problems Father Lung cancer Sister Family Status - Relation Status Age at Mother Father Sister Level of Service:54675 RI OFFICE/OUTPATIENT ESTABLISHED MOD MDM 30 MIN Normal [facility] Office Visiton 05-26-2024 Follow-up visit [id number] Sanjana Madrigalty S 1965 F Date Provider Department Center 05/26/2024 BIJAN LAWLER RIAZ [facility] Family History Problem Relation Age of Onset Lung cancer Mother No Known Problems Father Lung cancer Sister Family Status - Relation Status Age at Mother Father Sister Level of Service:71626 RI OFFICE/OUTPATIENT NEW MODERATE MDM 45 MINUTES Normal [facility] Outside Colonoscopyon 2022 Outside Colonoscopy [id number] 0CD:127 Normal [facility] Reminderson 11-27-2022 Reminders - From: Na Hayes LPN To: GSN - Clinical; Sent: 11/27/2022 12:46:10 EST Show up: 10/25/2032 07:00:00 EST Subject: colonoscopy recall Due Date/Time: 11/25/2032 07:00:00 EST Reminder/Recall Patient is due for screening colonoscopy 11/25/2032. Normal [facility] Lab Reportson 11-24-2022 Lab Reports [id number] 0CD:127 Normal [facility] Covid-19 PCR ([facility])on 10-24 SARS-CoV-2 (COVID-19) RNA BECK+probe Ql (Unsp spec) Not detected Normal NOT DETECTED [facility] Comment on above: Result Comment: This test is not yet approved or cleared by the [place] FDA. When there are no FDA-approved or cleared tests available, and other criteria are met, FDA can make tests available under an emergency access mechanism called an Emergency Use Authorization (EUA). The EUA for this test is supported by the [place] of Health and Human Service's (HHS's) declaration [...] consistent with SARS-CoV-2. Performed By: #### C [facility] #### [facility] [address] [place] [address] Dr. Rich Cutler Consent for Procedure/Surger yon 10-07-2022 Consent for Procedure/Surgery [id number] 0CD:127 Normal [facility] Ambulatory Visit Summaryon 1 12-06-2021 Ambulatory Visit [...] : DR KENDRA MORAN . 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 Tech Note: Incompetent SFJ and GSV. Patent varicose vein mid/med calf 2.9mm with 0s reflux. Patent varicose vein prox/post calf 3.8mm with 0s reflux. Patent varicose vein dist/med thigh 3.8mm with 2.0s reflux. CONCLUSION: 1. Mild right and [id number]-fk-[id number] left great saphenous vein venous insufficiency with dilatation 2. Left saphenous popliteal junction reflux 3. Mild left anterior accessory saphenous vein venous insufficiency without dilatation 4. Small bilateral incompetent varicose veins Dictated by: Adelia Lezama MD on 10/02/2022 at 13:36 Approved by: Adelia Lezama MD on 10/02/2022 at 13:52 Normal [facility] ECHOCARDIO M/2D COMPLETEon 1 11-30-2021 ECHOCARDIO M/2D COMPLETE Patient: ABY MADRIGAL Exam Date: 09/30/2022 : 1965 Gender:F Ordering : DR KENDRA MORAN . Admission #: [id number] Family : Order #: [id number] CLICK HERE TO VIEW EXAM ECHOCARDIOGRAM REPORT [...] M.D. on 09/30/2022 at 18:37 Normal [facility] BNPon 09-24-2022 Natriuretic peptide B (Bld) [Mass/Vol] 501.0 pg/mL Normal <=900.0 [facility] Comment on above: Performed By: #### C VDTB #### [facility] [address] [place] [address] Dr. Rich Cutler CBC AUTO DIFFon 09-24-2022 BASO # 0.1 103/ul Normal 0.0-0.1 [facility] Comment on above: Performed By: #### C VDTB #### [facility] [address] [place] [address] Dr. Rich Cutler Basophils/100 WBC (Bld) 0.8 % Normal 0.2-2.0 [facility] Comment on above: Performed By: #### C VDTBH #### [facility] [address] [place] [address] Dr. Rich Cutler EO # 0.3 103/ul Normal 0.0-0.7 The [facility] Comment on above: Performed By: #### C VDTBH #### [facility] [address] [place] [address] Dr. Rich Cutler Eosinophils/100 WBC (Bld) 3.4 % Normal 0.9-7.0 [facility] Comment on above: Performed By: #### C VDTBH #### [facility] [address] [place] [address] Dr. Rich Cutler Erythrocyte distribution width (RBC) [Ratio] 13.3 % Normal 11.0-15.0 [facility] Comment on above: Performed By: #### C VDTBH #### [facility] [address] [place] [address] Dr. Rich Cutler Hematocrit (Bld) [Volume fraction] 40.5 % Normal 36.0-48.0 [facility] Comment on above: Performed By: #### C VDTBH #### [facility] [address] [place] [address] Dr. Rich Cutler Hemoglobin (Bld) [Mass/Vol] 13.1 g/dL Normal 12.0-16.0 [facility] Comment on above: Performed By: #### C VDTBH #### [facility] [address] [place] [address] Dr. Rich Cutler IG # 0.02 10e3/ul Normal 0.00-0.03 [facility] Comment on above: Performed By: #### C VDTBH #### [facility] [address] [place] [address] Dr. Rich Cutler IG % 0.3 % Normal 0.0-0.5 [facility] Comment on above: Performed By: #### C VDTBH #### [facility] [address] [place] [address] Dr. Rich Cutler LYMPH # 2.7 103/ul Normal 1.2-3.8 [facility] Comment on above: Performed By: #### C VDTBH #### [facility] [address] [place] [address] Dr. Rich Cutler Lymphocytes/100 WBC (Bld) 35.4 % Normal 20.5-60.0 [facility] Comment on above: Performed By: #### C VDTBH #### [facility] [address] [place] [address] Dr. Rich Cutler MANUAL DIFF REQ NO Normal [facility] Comment on above: Performed By: #### C VDTBH #### [facility] [address] [place] [address] Dr. Rich Cutler MCH (RBC) [Entitic mass] 28.2 pg Normal 26.7-34.0 [facility] Comment on above: Performed By: #### C VDTBH #### [facility] [address] [place] [address] Dr. Rich Cutler MCHC (RBC) [Mass/Vol] 32.3 g/dL Normal 29.9-35.2 [facility] Comment on above: Performed By: #### C VDTBH #### [facility] [address] [place] [address] Dr. Rich Cutler MCV (RBC) [Entitic vol] 87.3 fL Normal 81.0-99.0 [facility] Comment on above: Performed By: #### C VDTBH #### [facility] [address] [place] [address] Dr. Rich Cutler MONO # 0.5 103/ul Normal 0.3-0.8 [facility] Comment on above: Performed By: #### C VDTBH #### [facility] [address] [place] [address] Dr. Rich Cutler Monocytes/100 WBC (Bld) 6.5 % Normal 1.7-12.0 [facility] Comment on above: Performed By: #### C VDTBH #### [facility] [address] [place] [address] Dr. Rich Cutler NEUT # 4.1 103/ul Normal 1.4-6.5 [facility] Comment on above: Performed By: #### C VDTBH #### [facility] [address] [place] [address] Dr. Rich Cutler Neutrophils/100 WBC (Bld) 53.6 % Normal 43.0-75.0 [facility] Comment on above: Performed By: #### C VDTBH #### [facility] [address] [place] [address] Dr. Rich Cutler Platelet mean volume (Bld) [Entitic vol] 10.3 fL Normal 9.5-13.5 [facility] Comment on above: Performed By: #### C VDTBH #### [facility] [address] [place] [address] Dr. Rich Cutler PLT 283 103/ul Normal 150-450 [facility] Comment on above: Performed By: #### C VDTBH #### [facility] [address] [place] [address] Dr. Rich Cutler RBC 4.64 106/ul Normal 4.20-5.40 [facility] Comment on above: Performed By: #### C VDTBH #### [facility] [address] [place] [address] Dr. Rich Cutler WBC 7.6 103/ul Normal 4.0-11.0 [facility] Comment on above: Performed By: #### C VDTBH #### [facility] [address] [place] [address] Dr. Rich Cutler INSULINon 09-24-2022 Insulin 15.1 uIU/mL Normal 2.6-24.9 [facility] Comment on above: Performed By: #### C VDTBH #### [facility] [address] [place] [address] Dr. Rich Cutler PROF 14(COMP METB)on 022 Albumin [Mass/Vol] 3.5 g/dL Normal 3.4-5.0 [facility] Comment on above: Performed By: #### C VDTBH #### [facility] [address] [place] [address] Dr. Rich Cutler Albumin/Globulin [Mass ratio] 1.0 {ratio} Normal [facility] Comment on above: Performed By: #### C VDTBH #### [facility] [address] [place] [address] Dr. Rich Cutler ALP [Catalytic activity/Vol] 91 U/L Normal 46-116 [facility] Comment on above: Performed By: #### C VDTBH #### [facility] [address] [place] [address] Dr. Rich Cutler ALT [Catalytic activity/Vol] 47 U/L Normal 14-59 [facility] Comment on above: Performed By: #### C VDTBH #### [facility] [address] [address] [address] Rich Cutler Anion gap [Moles/Vol] 11.7 mmol/L Normal [facility] Comment on above: Performed By: #### C VDTBH #### [facility] [address] [address] [address] Rich Cutler AST [Catalytic activity/Vol] 24 U/L Normal 15-37 [facility] Comment on above: Performed By: #### C VDTBH #### [facility] [address] [address] [address] Rich Cutler Bilirubin [Mass/Vol] 0.2 mg/dL Normal 0.2-1.0 [facility] Comment on above: Performed By: #### C VDTBH #### [facility] [address] [place] [address] Dr. Rich Cutler Calcium [Mass/Vol] 8.9 mg/dL Normal 8.5-10.1 [facility] Comment on above: Performed By: #### C VDTBH #### [facility] [address] [place] [address] Dr. Rich Cutler Chloride [Moles/Vol] 105 mmol/L Normal 98-107 [facility] Comment on above: Performed By: #### C VDTBH #### [facility] [address] [place] [address] Dr. Rich Cutler CO2 [Moles/Vol] 28.1 mmol/L Normal 21.0-32.0 [facility] Comment on above: Performed By: #### C VDTBH #### [facility] [address] [place] [address] Dr. Rich Cutler Creatinine [Mass/Vol] 1.13 mg/dL Critically high 0.55-1.02 [facility] Comment on above: Performed By: #### C VDTBH #### [facility] [address] [place] [address] Dr. Rich Cutler EGFR-AF MALDIVIAN 60 mL/min/1.73m2 Normal >=60 [facility] Comment on above: Performed By: #### C VDTBH #### [facility] [address] [place] [address] Dr. Rich Cutler EGFR-NON AF MALDIVIAN 49 mL/min/1.73m2 Critically low >=60 [facility] Comment on above: Performed By: #### C VDTBH #### [facility] [address] [place] [address] Dr. Rich Cutler Globulin (S) [Mass/Vol] 3.5 g/dL Normal [facility] Comment on above: Performed By: #### C VDTBH #### [facility] [address] [place] [address] Dr. Rich Cutler Glucose [Mass/Vol] 119 mg/dL Critically high 74-106 [facility] Comment on above: Performed By: #### C VDTBH #### [facility] [address] [place] [address] Dr. Rich Cutler Potassium [Moles/Vol] 3.8 mmol/L Normal 3.5-5.1 [facility] Comment on above: Performed By: #### C VDTBH #### [facility] [address] [place] [address] Dr. Rich Cutler Protein [Mass/Vol] 7.0 g/dL Normal 6.4-8.[address] [facility] Comment on above: Performed By: #### C VDTBH #### [facility] [address] [place] [address] Dr. Rich Cutler Sodium [Moles/Vol] 141 mmol/L Normal 136-[address] [facility] Comment on above: Performed By: #### C VDTBH #### [facility] [address] [place] [address] Dr. Rich Cutler Urea nitrogen [Mass/Vol] 16.0 mg/dL Normal 7.0-18.0 [facility] Comment on above: Performed By: #### C VDTBH #### [facility] [address] [place] [address] Dr. Rich Cutler Urea nitrogen/Creatinine [Mass ratio] 14.2 mg/mg Normal [facility] Comment on above: Performed By: #### C VDTBH #### [facility] [address] [place] [address] Dr. Rich Cutler TROPONIN, HIGH SENSITIVITYon 09-24-2022 HSTROP 10.6 pg/mL Normal 4.0-51.3 [facility] Comment on above: Result Comment: CUT- OFF POINTS HAVE BEEN ESTABLISHED BASED ON THE FOURTH UNIVERSAL DEFINITIONS OF MYOCARDIAL INFARCTION. THE UPPER REFERENCE LIMIT (URL) OF TROPONIN, DEFINED THE 99TH PERCENTILE OF cTnI DISTRIBUTION IN A REFERENCE POPULATION, HAS BEEN CONFIRMED THE DECISION THRESHOLD FOR AK DIAGNOSIS. Performed By: #### C VDTBH #### [facility] [address] [place] [address] Dr. Rich Cutler XR CHEST 1 Von [...] [facility] Date: 2022-09-24 04:08 Normal [facility] CBC AUTO DIFFon 09-23-2022 BASO # 0.1 103/ul Normal 0.0-0.1 [facility] Comment on above: Performed By: #### C BC #### [facility] [address] [place] [address] Dr. Rich Cutler Basophils/100 WBC (Bld) 0.8 % Normal 0.2-2.0 [facility] Comment on above: Performed By: #### C BC #### [facility] [address] [place] [address] Dr. Rich Cutler EO # 0.2 103/ul Normal 0.0-0.7 [facility] Comment on above: Performed By: #### C BC #### [facility] [address] [place] [address] Dr. Rich Cutler Eosinophils/100 WBC (Bld) 3.5 % Normal 0.9-7.0 [facility] Comment on above: Performed By: #### C BC #### [facility] [address] [place] [address] Dr. Rich Cutler Erythrocyte distribution width (RBC) [Ratio] 13.4 % Normal 11.0-15.0 [facility] Comment on above: Performed By: #### C BC #### [facility] [address] [place] [address] Dr. Rich Cutler Hematocrit (Bld) [Volume fraction] 42.3 % Normal 36.0-48.0 [facility] Comment on above: Performed By: #### C BC #### [facility] [address] [place] [address] Dr. Rich Cutler Hemoglobin (Bld) [Mass/Vol] 13.4 g/dL Normal 12.0-16.0 [facility] Comment on above: Performed By: #### C BC #### [facility] [address] [place] [address] Dr. Rich Cutler IG # 0.03 10e3/ul Normal 0.00-0.03 [facility] Comment on above: Performed By: #### C BC #### [facility] [address] [place] [address] Dr. Rich Cutler IG % 0.5 % Normal 0.0-0.5 [facility] Comment on above: Performed By: #### C BC #### [facility] [address] [place] [address] Dr. Rich Cutler LYMPH # 2.9 103/ul Normal 1.2-3.8 [facility] Comment on above: Performed By: #### C BC #### [facility] [address] [place] [address] Dr. Rich Cutler Lymphocytes/100 WBC (Bld) 44.0 % Normal 20.5-60.0 [facility] Comment on above: Performed By: #### C BC #### [facility] [address] [place] [address] Dr. Rich Cutler MANUAL DIFF REQ NO Normal [facility] Comment on above: Performed By: #### C BC #### [facility] [address] [place] [address] Dr. Rich Cutler MCH (RBC) [Entitic mass] 28.4 pg Normal 26.7-34.0 [facility] Comment on above: Performed By: #### C BC #### [facility] [address] [place] [address] Dr. Rich Cutler MCHC (RBC) [Mass/Vol] 31.7 g/dL Normal 29.9-35.2 [facility] Comment on above: Performed By: #### C BC #### [facility] [address] [place] [address] Dr. Rich Cutler MCV (RBC) [Entitic vol] 89.6 fL Normal 81.0-99.0 [facility] Comment on above: Performed By: #### C BC #### [facility] [address] [place] [address] Dr. Rich Cutler MONO # 0.4 103/ul Normal 0.3-0.8 [facility] Comment on above: Performed By: #### C BC #### [facility] [address] [place] [address] Dr. Rich Cutler Monocytes/100 WBC (Bld) 6.6 % Normal 1.7-12.0 [facility] Comment on above: Performed By: #### C BC #### [facility] [address] [place] [address] Dr. Rich Cutler NEUT # 2.9 103/ul Normal 1.4-6.5 [facility] Comment on above: Performed By: #### C BC #### [facility] [address] [place] [address] Dr. Rich Cutler Neutrophils/100 WBC (Bld) 44.6 % Normal 43.0-75.0 [facility] Comment on above: Performed By: #### C BC #### [facility] [address] [address] [address] Rich Cutler Platelet mean volume (Bld) [Entitic vol] 11.0 fL Normal 9.5-13.5 [facility] Comment on above: Performed By: #### C BC #### [facility] [address] [place] [address] Dr. Rich Cutler PLT 272 103/ul Normal 150-450 [facility] Comment on above: Performed By: #### C BC #### [facility] [address] [address] [address] Rich Cutler RBC 4.72 106/ul Normal 4.20-5.40 [facility] Comment on above: Performed By: #### C BC #### [facility] [address] [place] [address] Dr. Rich Cutler WBC 6.5 103/ul Normal 4.0-11.0 [facility] Comment on above: Performed By: #### C BC #### [facility] [address] [place] [address] Dr. Rich Cutler FREE THYROXINE INDEX T7on FTI 2.16 Normal 1.30-4.50 [facility] Comment on above: Performed By: #### L IPID, TSH, T7, CMP #### [facility] [address] [place] [address] Dr. Rich Cutler T3U 30.0 % Normal 30.0-39.0 [facility] Comment on above: Performed By: #### L IPID, TSH, T7, CMP #### [facility] [address] [place] [address] Dr. Rich Cutler T4 [Mass/Vol] 7.20 ug/dL Normal 4.80-13.90 [facility] Comment on above: Performed By: #### L IPID, TSH, T7, CMP #### [facility] [address] [place] [address] Dr. Rich Cutler GLYCOHEMOGLOBIN A1Con 2021 ADA RECOMMENDATION SEE BELOW Normal [facility] Comment on above: Result Comment: ADA RECOMMENDED LIMIT 4.0 - 6.0 ADA THERAPEUTIC TARGET < 7.0 ACTION SUGGESTED > 7.0 Performed By: #### A 1C #### [facility] [address] [address] [address] Rich Cutler Glucose [Mass/Vol] 128 mg/dL Normal [facility] Comment on above: Performed By: #### A 1C #### [facility] [address] [address] [address] Rich Cutler HbA1c (Bld) [Mass fraction] 6.1 % Normal 4.5-6.2 [facility] Comment on above: Performed By: #### A 1C #### [facility] [address] [place] [address] Dr. Rich Cutler IRONon 09-23-2022 Iron [Mass/Vol] 64.0 ug/dL Normal 50.0-170.0 [facility] Comment on above: Performed By: #### C VDTB #### [facility] [address] [place] [address] Dr. Rich Cutler LIPID PROFILEon 09-23-2022 CHOL-HDL RATIO NORM SEE BELOW Normal [facility] Comment on above: Result Comment: 3.3 - 4.4 LOW RISK 4.4 - 7.1 AVERAGE RISK 7.1 - 11.0 MODERATE RISK >11.0 HIGH RISK Performed By: #### L IPID, TSH, T7, CMP #### [facility] [address] [place] [address] Dr. Rich Cutler Cholesterol [Mass/Vol] 237 mg/dL Critically high <=200 [facility] Comment on above: Performed By: #### L IPID, TSH, T7, CMP #### [facility] [address] [address] [address] Rich Cutler Cholesterol in HDL [Mass/Vol] 44 mg/dL Normal 40-60 [facility] Comment on above: Performed By: #### L IPID, TSH, T7, CMP #### [facility] [address] [address] [address] Rich Cutler Cholesterol in LDL [Mass/Vol] 172.2 mg/dL Normal [facility] Comment on above: Performed By: #### L IPID, TSH, T7, CMP #### [facility] [address] [address] [address] Rich Cutler Cholesterol.total/C holesterol in HDL [Mass ratio] 5.4 {ratio} Normal [facility] Comment on above: Performed By: #### L IPID, TSH, T7, CMP #### [facility] [address] [address] [address] Rich Cutler HDL NORMAL > or = 60 mg/dl - LO W CARDIOVASCULAR RISK <40 mg/dl - HIGH CARDIOVASCULAR RISK Normal [facility] Comment on above: Performed By: #### L IPID, TSH, T7, CMP #### [facility] [address] [address] [address] Rich Cutler LDL CALC NORMAL SEE BELOW Normal [facility] Comment on above: Result Comment: <100 mg/dl OPTIMAL 100 - 129 mg/dl NEAR OR ABOVE OPTIMAL 130 - 159 mg/dl BORDERLINE HIGH 160 - 189 mg/dl HIGH >190 mg/dl VERY HIGH Performed By: #### L IPID, TSH, T7, CMP #### [facility] [address] [address] [address] Rich Cutler Triglyceride [Mass/Vol] 104 mg/dL Normal <=150 [facility] Comment on above: Performed By: #### L IPID, TSH, T7, CMP #### [facility] [address] [address] [address] Rich Cutler VLDL CALC 20.8 mg/dL Normal [facility] Comment on above: Performed By: #### L IPID, TSH, T7, CMP #### [facility] [address] [address] [address] Rich Cutler PROF 14(COMP METB)on 022 Albumin [Mass/Vol] 3.5 g/dL Normal 3.4-5.0 [facility] Comment on above: Performed By: #### L IPID, TSH, T7, CMP #### [facility] [address] [address] [address] Rich Cutler Albumin/Globulin [Mass ratio] 0.9 {ratio} Normal [facility] Comment on above: Performed By: #### L IPID, TSH, T7, CMP #### [facility] [address] [place] [address] Dr. Rich Cutler ALP [Catalytic activity/Vol] 93 U/L Normal 46-116 [facility] Comment on above: Performed By: #### L IPID, TSH, T7, CMP #### [facility] [address] [place] [address] Dr. Rich Cutler ALT [Catalytic activity/Vol] 44 U/L Normal 14-59 [facility] Comment on above: Performed By: #### L IPID, TSH, T7, CMP #### [facility] [address] [place] [address] Dr. Rich Cutler Anion gap [Moles/Vol] 8.5 mmol/L Normal [facility] Comment on above: Performed By: #### L IPID, TSH, T7, CMP #### [facility] [address] [place] [address] Dr. Rich Cutler AST [Catalytic activity/Vol] 26 U/L Normal 15-37 [facility] Comment on above: Performed By: #### L IPID, TSH, T7, CMP #### [facility] [address] [place] [address] Dr. Rich Cutler Bilirubin [Mass/Vol] 0.3 mg/dL Normal 0.2-1.0 [facility] Comment on above: Performed By: #### L IPID, TSH, T7, CMP #### [facility] [address] [place] [address] Dr. Rich Cutler Calcium [Mass/Vol] 9.0 mg/dL Normal 8.5-10.1 [facility] Comment on above: Performed By: #### L IPID, TSH, T7, CMP #### [facility] [address] [place] [address] Dr. Rich Cutler Chloride [Moles/Vol] 106 mmol/L Normal 98-107 [facility] Comment on above: Performed By: #### L IPID, TSH, T7, CMP #### [facility] [address] [address] [address] Rich Cutler CO2 [Moles/Vol] 31.0 mmol/L Normal 21.0-32.0 [facility] Comment on above: Performed By: #### L IPID, TSH, T7, CMP #### [facility] [address] [address] [address] Rich Cutler Creatinine [Mass/Vol] 1.11 mg/dL Critically high 0.55-1.02 [facility] Comment on above: Performed By: #### L IPID, TSH, T7, CMP #### [facility] [address] [address] [address] Rich Cutler EGFR-AF MALDIVIAN >60 Normal >=60 [facility] Comment on above: Performed By: #### L IPID, TSH, T7, CMP #### [facility] [address] [place] [address] Dr. Rich Cutler EGFR-NON AF MALDIVIAN 50 mL/min/1.73m2 Critically low >=60 [facility] Comment on above: Performed By: #### L IPID, TSH, T7, CMP #### [facility] [address] [address] [address] Rich Cutler Globulin (S) [Mass/Vol] 3.7 g/dL Normal [facility] Comment on above: Performed By: #### L IPID, TSH, T7, CMP #### [facility] [address] [address] [address] Rich Cutler Glucose [Mass/Vol] 121 mg/dL Critically high 74-[address] [facility] Comment on above: Performed By: #### L IPID, TSH, T7, CMP #### [facility] [address] [address] [address] Rich Cutler Potassium [Moles/Vol] 4.5 mmol/L Normal 3.5-5.1 [facility] Comment on above: Performed By: #### L IPID, TSH, T7, CMP #### [facility] [address] [address] [address] Rich Cutler Protein [Mass/Vol] 7.2 g/dL Normal 6.4-8.2 [facility] Comment on above: Performed By: #### L IPID, TSH, T7, CMP #### [facility] [address] [address] [address] Rich Cutler Sodium [Moles/Vol] 141 mmol/L Normal 136-145 [facility] Comment on above: Performed By: #### L IPID, TSH, T7, CMP #### [facility] [address] [address] [address] Rich Cutler Urea nitrogen [Mass/Vol] 16.0 mg/dL Normal 7.0-18.0 [facility] Comment on above: Performed By: #### L IPID, TSH, T7, CMP #### [facility] [address] [place] [address] Dr. Rich Cutler Urea nitrogen/Creatinine [Mass ratio] 14.4 mg/mg Normal [facility] Comment on above: Performed By: #### L IPID, TSH, T7, CMP #### [facility] [address] [address] [address] Rich Cutler TSHon 09-23-2022 TSH 3.915 uIU/mL Critically high 0.358-3.740 [facility] Comment on above: Performed By: #### L IPID, TSH, T7, CMP #### [facility] [address] [place] [address] Dr. Rich Cutler Physician Referralon 022 Physician Referral [id number] Normal [facility] Lipid Panelon 10-07-2021 Cholesterol [Mass/Vol] 205 mg/dL High 140-200 [facility] Comment on above: Result Comment: Chol less than 200 mg/dl low risk Chol 201-239 mg/dl borderline risk Chol 240 mg/dl and greater high risk Performed By: #### L IPID, [id number], TSH3 wRFLX #### [facility] [address] Cholesterol in HDL [Mass/Vol] 25 mg/dL Low 35-85 [facility] Comment on above: Result Comment: HDL CHOL ATP-III CLASSIFICATION Cardiovascular Risk HDL > or equal to 60 mg/dL LOW HDL < 40 mg/dL HIGH Performed By: #### L IPID, [id number], TSH3 wRFLX #### [facility] [address] Cholesterol.total/C holesterol in HDL [Mass ratio] 8.2 {ratio} Normal <5.0 [facility] Comment on above: Performed By: #### L IPID, [id number], TSH3 wRFLX #### [facility] [address] LDL Cholesterol,Calcula coby 160 mg/dL High 0-100 [facility] Comment on above: Result Comment: LDL ATP III CLASSIFICATION LDL less than 100 mg/dL Optimal LDL 100-129 mg/dL Near or above optimal LDL 130-159 mg/dL Borderline high LDL 160-189 mg/dL High LDL greater than 189 mg/dL Very high Performed By: #### L IPID, [id number], TSH3 wRFLX #### [facility] [address] Triglyceride w/Reflex 100 mg/dL Normal 35-149 [facility] Comment on above: Result Comment: TRIG ATP III CLASSIFICATION TRIG less than 150 mg/dL Normal TRIG 150-199 mg/dL Borderline high TRIG 200-500 mg/dL High TRIG greater than 500 mg/dL Very high Standard traceable to the Center for Disease Conrtrol and Prevention (CDC) test method. Performed By: #### L IPID, [id number], TSH3 wRFLX #### [facility] [address] [place] [id number] [facility] VLDL CHOLESTEROL 20 mg/dL Normal [facility] Comment on above: Performed By: #### L IPID, [id number], TSH3 wRFLX #### [facility] [address] [place] [id number] [facility] Thyroid Stim Hormone w/Rflxo n 10-07-2021 Thyroid Stim Hormone w/Rflx 3.27 u[iU]/mL Normal 0.45-5.33 [facility] Comment on above: Performed By: #### L IPID, [id number], TSH3 wRFLX #### [facility] [address] [place] [id number] [facility] Vitamin D 25 Hydroxy Totalon 10-07-2021 Vitamin D 25 Hydroxy Total 26.5 ng/mL Low 30-100 [facility] Comment on above: Result Comment: JACKELINE MIN D STATUS 25(OH)VITAMIN D RANGE (ng/mL) Deficient <20 Insufficient 20 to <30 Sufficient 30 to 100 Reference: Lanny MF,Gino NC, Dyan VALENZUELA, et al. Evaluation,treatment, and prevention of vitamin D deficiency; an Endocrine Society clinical practice guideline. JCEM. 2010; 96(7):1911-30. PERFORMED BY: [place] [address] PATHOLOGIST BRIDGE CONSTRUCTION INSPECTOR SILVESTRE SCHULER M.D. Performed By: #### L IPID, [id number], TSH3 wRFLX #### [place] [id number] [facility] Vital Signs Date Time Vital Sign Value Performing Clinician Deidre gagnon 10-06-2022 15:36-0500 Blood Pressure Location Umm LANDON [facility] [place] 10-06-2022 15:36-0500 Diastolic blood pressure 86 mm[Hg] Umm LANDON [facility] [place] 10-06-2022 15:36-0500 Heart rate 72 /min Umm JACQUESL [facility] [place] 10-06-2022 15:36-0500 Respiratory rate 16 /min Umm JACQUESL [facility] [place] 10-06-2022 15:36-0500 Systolic blood pressure 126 mm[Hg] Umm LANDON [facility] [place] Encounters Encounter Date Encounter Type Care Provider Facility Start: 10-03-2024 End: 10-03-2024 [facility] Start: 09-04-2024 End: 09-04-2024 ambulatory [facility] Start: 08-29-2024 End: 08-29-2024 ambulatory [facility] Start: 08-04-2024 End: 08-04-2024 ambulatory [facility] Start: 07-20-2024 ambulatory [facility] Start: 07-18-2024 ambulatory [facility] Start: 07-18-2024 End: 07-18-2024 Emergency department patient visit HERMINIA SADLERUNDERS [facility] Start: 07-18-2024 End: 07-18-2024 ambulatory [facility] Start: 07-11-2024 Evaluation and manag ement of inpatient [facility] Start: 07-11-2024 Emergency department patient visit FEDERICA ANDERSON [facility] Start: 07-11-2024 End: 07-12-2024 Evaluation and management of inpatient TAO Dugan [facility] Start: 07-10-2024 End: 07-10-[address] [facility] Start: 06-30-2024 Evaluation and manag ement of inpatient [facility] Start: 06-30-2024 Evaluation and manag ement of inpatient [facility] Start: 06-29-2024 End: 07-01-2024 Evaluation and management of inpatient [facility] Start: 06-21-2024 End: 06-21-2024 ambulatory [facility] Start: 05-26-2024 End: 05-26-[address] [facility] Start: 11-26-2022 Encounter for preprocedural laboratory examination DR UMM LANDON . [facility] Start: 11-25-2022 End: 11-26-2022 ambulatory Umm LANDON Facility:CD:[id number] Start: 11-20-2022 End: 11-21-[address] UMM LANDON . Facility:[facility] Start: 11-20-2022 End: 11-21-2022 Encounter for preprocedural laboratory examination DR UMM ALNDON . Facility: Start: 10-06-2022 End: 10-07-2022 ambulatory Umm LANDON Facility: [place] Start: 10-06-2022 End: 10-06-2022 Patient encounter procedure Umm LANDON [facility] Start: 10-02-2022 End: 10-03-[address] KENDRA MORAN . Facility:[facility] Start: 09-30-2022 End: 10-01-[address] KENDRA MORAN . Facility:[facility] Start: 09-28-2022 Encounter for genera l adult medical examination without abnormal findings DR KENDRA MORAN . [facility] Start: 09-24-2022 End: 09-24-[address] [...] mRNA BNT-162b2 vax Umm NILL [facility] [place] 03-11-2021 SARS-CoV-2 (COVID-19 ) mRNA BNT-162b2 doris LANDON [facility] [place] Payers Date Payer Category Payer Medicaid [id number] 1965 Unknown [id number] 2.16.8 [id number] 1965 Unknown [id number] 2.16.8 [id number] 1965 Unknown [id number] 2.16.84 [id number] 1965 Unknown [id number] 2.16.84 [id number] 1965 Unknown [id number] 2.16.84 [id number] 1965 Unknown [id number] 2.16.84 [id number] 1965 Unknown [id number] 2.16.84 [id number] 1965 Unknown [id number] 2.16.84 [id number] 1965 Unknown [id number] 2.16.84 [id number] 1960 Self-pay [id number] 1960 Unknown [id number] Social History Date Type Detail Facility Start: 10-06-2022 Tobacco smoking status Ex-smoker (fi nding) [facility] [place] Tobacco smoking status Never [facility] [place] Sex Assigned At Female [facility] Functional Status Date Assessment Result Facility 10-06-2022 Functional Status N/A [facility] [place] Clinical Notes 10-11-2022 to 10-03-2024 Note Date [...] metoprolol - CT A/P Jun 2019 in [place], [place] performed for abd pain, incidentally detected [...] 25 mg by (more content not included)... [facility] 09-04-2024 Note [place] [facility] - [facility] Subjective Aby Madrigal is a 59 y.o. year old female patient being seen for follow up [facility] in Jun 2024 for hypotension. She says [...] infarction) (CMS/HCC) Hypokalemia Coronary artery disease involving [place] coronary artery of [place] heart without angina pectoris Depression, major, severe [...] and V6. She was then admitted to [facility] on 07/11/2024 with NSTEMI. She underwent cardiac [...] and Affect: M (more content not included)... [facility] 07-20-2024 Note Attestation signed by Richa Viramontes [...] Age: 59 y.o. : 1965 Account No.: [id number] Referring physician: Dr. Jarocho Saldaña Chief complaint: RML nodule HPI Aby Madrigal is a 59 y.o. female with hypertension, CAD status post PCI recently in June 2024,, cigarette smoking who is presenting to IP clinic via telemedicine as a new patient after being referred by Dr. Jarocho Saldaña. Patient reports recent admission to [facility] for hypertensive emergency. This prompted a CT of the chest which was positive for right middle lobe nodule. She then underwent PCI here at [facility] in June. She is currently on aspirin [...] PFTs on file. CTA chest 04/21/[address] [facility]: Right middle lobe approximately 1 cm spiculated nodule appreciated Subsequent PET CT [address] [facility]: Right middle lobe nodule is [...] alcohol. She reports (more content not included)... [facility] 07-18-2024 Note REASON FOR VISIT [...] metoprolol - CT A/P Jun 2019 in [place], [place] performed for abd pain, incidentally detected [...] History: Diagnosis Date Abnormal ECG Diabetes mellitus (CMS/[facility]) Hyperlipidemia Hypertension Obstructive sleep apnea Panic attacks Stroke (CMS/[facility]) Past Surgical History: Procedure Laterality Date [...] Rfl: carvedilol (C (more content not included)... 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 Resides at home alone. Discharge plan is home. [facility] 07-18-2024 Note Patient sent to ED f or hypotension and dizziness/lightheadedness [facility] 07-12-2024 Note Hospital Medicine Discharge Summary Final Discharge Diagnosis: NSTEMI Admission Diagnosis: Hypokalemia [E87.6] NSTEMI (non-ST elevated myocardial infarction) ([facility]) [I21.4] Hypertensive urgency [I16.0] Adenoma of left adrenal gland [D35.02] Resistant hypertension [I1A.0] Atherosclerosis of [place] coronary artery of [place] heart without angina pectoris [I25.10] Coronary artery disease involving [place] coronary artery of [place] heart with unstable angina pectoris ([facility]) [I25.110] Type 2 diabetes mellitus without complication, without long-term current use of insulin ([facility]) [E11.9] Hospital course: 59yoF with CAD s/p LAD SARKIS 11 days ago who was admitted to [facility] on 07/11 for chest pain. patient initially presented to [facility] for uncomfortable feeling in her chest and was found to have elevated troponins and new ischemic changes on EKG. Infusion and cardiology was consulted transferred to [facility] for further evaluation. Initially the patient had blood pressures up to 192/65 for which home medications were restarted. Troponins at [facility] were negative and there were [...] Center 07/18/2024 8:20 AM Feng Christie MD [facility] ENDOCR [facility] 07/20/2024 1:00 PM Richa Viramontes MD [facility] ONC [facility] 09/05/2024 1:00 PM Bijan Licea MD [facility] Your medication list START taking these medications [...] Your Medications These medications were sent to [facility]/pharmacy #[id number] [address] isosorbide mononitrate ER 60 mg 24 hr [...] activity In process (more content not included)... [facility] 07-11-2024 Note 07/11/24 1817 Financial [...] place to sleep or slept in a alf (including now)? N Transportation Needs In the [...] than 3 How often do you attend druze or taoism services? Never Do you belong to any clubs or organizations such as druze groups, unions, fraternal or athletic groups, or [...] In the past 12 months has the [employer], gas, oil, or water [employer] threatened to shut off services in your home? 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 Referral Reason Psychosocial assessment Patient Information Primary Caregiver Self Accompanied by/Relationship Daughter (Rosita); Lcrowkoc-my-zge (Yesy) Activities of Daily Living Assistive Device Not applicable Living Arrangement (Current/Prior to Hospitalization) Private residence (Lives at home by herself) Ambulation Independent Dressing Independent Feeding Independent Behavior Oriented (A&Ox4) Communication Can write;Talks;Understands speaking;Understands Malay;Reads Income Information Income Source Unemployed (receives survivor benefits) Discharge Planning Support Systems Children;Family members (daughter, ejyogsbt-xp-bnd, son) Type of Residence Private residence Will patient need Precert for Post Acute needs? No Patient's goal for discharge Home Does the patient need discharge transport arranged? No Completed social work assessment and SDoH screening. Patient was A&Ox4 at this time. Patient's daughter, Rosita, and patient's vzjrhabb-vi-qdo, Yesy, were currently present at bedside. Patient reported that she lives at home by herself and she identified her support system as her daughter, Rosita, her lhiqbwvd-gf-zik, Yesy, and her son, Elie. Patient endorsed [...] any alcohol consumption or recreational drug use. [facility] 07-11-2024 Note Hospital Medicine History and Physical 07/11/2024 12:19 PM THE HOSPITALIST TEAM PREFERS TO USE [email or web address] FOR COMMUNICATION 7AM-7PM. IF I DO NOT RESPOND WITHIN 15 MINUTES, PLEASE PAGE ME/CALL THROUGH THE [employer]AVA DEVEL[employer]. FROM 7PM-7AM, PLEASE PAGE [phone](COVR) Chief Complaint Chief Complaint Patient presents with [...] presented to ER as a transfer from [facility] for NSTEMI. Patient states that last [...] Noted Hypokalemia 07/11/2024 Coronary artery disease involving [place] coronary artery of [place] heart with unstable angina pectoris ([facility]) 07/11/2024 Anxiety 06/30/2024 Type 2 diabetes mellitus without complication, without long-term current use of insulin ([facility]) 06/30/2024 Chest pain 06/30/2024 Elevated troponin 06/30/2024 Hypertensive urgency 06/30/2024 Hypomagnesemia 06/30/2024 QURESHI (dyspnea on exertion) 05/26/2024 Atherosclerosis of [place] coronary artery of [place] heart without angina pectoris 05/26/2024 Hyperlipidemia 05/26/2024 Murmur, heart 05/26/2024 Sepsis ([facility]) 07/14/2019 BV (bacterial vaginosis) 10/18/2017 GERD (gastroesophageal reflux disease) 10/18/2017 Essential hypertension 10/18/2017 TIA (transient ischemic attack) 10/18/2017 NSTEMI (non-ST elevated myocardial infarction) ([facility]) 06/29/2024 Assessment and Plan NSTEMI CAD, [...] for GI prophylaxis (more content not included)... [facility] 07-10-2024 Note [place] [facility] Note Reason for cardiology [...] Take 1 tablet (more content not included)... [facility] 07-01-2024 Note Hospital Medicine Discharge [...] hypertension, IBS presents a direct mission from [facility] with a chief complaint of chest [...] seen on her EKG. She went to [facility] for the symptoms. Labs were completed [...] - Continue metformin. Dear Dr. Lidia MD, [facility] is advised to follow up with you within 1-2 weeks. Items to follow up in ambulatory setting: None Follow-up with: Cardiology and Nephrology Scheduled appointments: Future Appointments Date Time Provider Department Center 07/10/2024 2:20 PM [facility] Your medication list START taking [...] Your Medications These medications were sent to [facility]/pharmacy #[id number] [place], [place] - [address] [address] carvedilol 25 mg tablet cloNIDine 0.1 mg [...] days Lab Units (more content not included)... [facility] 07-01-2024 Note [facility] CARDIOLOGY INPAT IENT PROGRESS NOTE Reason for follow up: NSTEMI Subjective Aby Madrigal, a 59 y.o. female patient, is transferred from [facility] for continuity of care. Patient reports that 3 days ago, she woke up in the mid of the night with indigestion, and a feeling fullness, but no pressure like chest pain. She presented to [facility], where she was found [...] 0.56 06/29/2024 E (more content not included)... 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 (Cath) Providers: Brunilda Cuellar [...] Plan discussed with attending. 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 [facility] 06-30-2024 Note 06/30/24 1431 Admission [...] Not Interested Does the patient have a catalytic case operator assigned to them through their insurance? [...] to send link and activate MyChart? No [facility] 06-30-2024 Note Case was discussed w ith the SALVAODR on 06/29/2024. I agree with the history, physical, assessment, and plan of care. I discussed the findings and therapeutic plan. I agree with the documentation, except for any updates below. Maurice Nogueira MD [facility] 06-30-2024 Note Hospital Medicine History and Physical 06/30/2024 1:15 AM THE HOSPITALIST TEAM PREFERS TO USE [employer] CHAT FOR COMMUNICATION 7AM-7PM. IF I DO NOT RESPOND WITHIN 15 MINUTES, PLEASE PAGE ME/CALL THROUGH THE [employer] JAVA DEVELOPER. FROM 7PM-7AM, PLEASE PAGE [phone](COVR) Chief Complaint Direct admission from [facility] with CP History of Present Illness Aby Madrigal is an 59 y.o. female who came from home with past medical history of anxiety, DM2, hypertension, IBS presents a direct mission from [facility] with a chief complaint of chest [...] seen on her EKG. She went to [facility] for the symptoms. Labs were completed [...] complication, without long-term current use of insulin ([facility]) 06/30/2024 Chest pain 06/30/2024 Elevated troponin 06/30/2024 Hypertensive urgency 06/30/2024 QURESHI (dyspnea on exertion) 05/26/2024 Atherosclerosis of [place] coronary artery of [place] heart without angina pectoris 05/26/2024 Hyperlipidemia 05/26/2024 Murmur, heart 05/26/2024 Sepsis ([facility]) 07/14/2019 BV (bacterial vaginosis) 10/18/2017 GERD (gastroesophageal reflux disease) 10/18/2017 Essential hypertension 10/18/2017 TIA (transient ischemic attack) 10/18/2017 Assessment and Plan Aby Madrigal is an 59 y.o. female who came from home with past medical history of anxiety, DM2, hypertension, IBS presents a direct mission from [facility] with a chief complaint of chest pain. #Chest pain #Elevated troponin Troponin 0.1, will continue to trend -Patient continues to have mild chest discomfort upon arrival -Continue heparin drip -CXR negative for acute process at OSH -EKG showing normal sinus rhythm -N.p.o. for possible right and left cardiac cath in a.m. -Patient with new diastolic dysfunction on echoc (more content not included)... [facility] 06-21-2024 Note [place] [facility] - [facility] Subjective Aby Madrigal is a 59 y.o. year old female patient being seen for follow up [facility] ED per Dr. Moran. She has [...] attack) QURESHI (dyspnea on exertion) Atherosclerosis of [place] coronary artery of [place] heart without angina pectoris Hyperlipidemia Murmur, heart [...] Judgment: Judgment no (more content not included)... [facility] 05-26-2024 Note [place] [facility] Note Reason for cardiology [...] PSYCH: appropriate mood, (more content not included)... [facility] 11-25-2022 Note OPERATIVE NOTE OPERATION [...] 10 years. CC: Kendra Moran M.D. [facility] 10-11-2022 Note Chief Complaint consultation for [...] 1 tab(s), Oral, (more content not included)... [facility] Comment on above: Result Comment: Elec tronically Signed By: DIPESH BUCKNER, Umm Hogan\Date and Time Signed: 10/11/22 11:01 EST Evaluation + Plan note No data available for this section [facility] [place] [facility] Discharge instructions No data available for this section [facility] [place] Progress note No data available for this section [facility] [place] Summary Purpose Family History No Family History Records FoundNo Family History Records FoundNo Family History Records FoundNo Family History Records Found Advance Directives No Advanced Directives Records FoundNo Advanced Directives Records FoundNo Advanced Directives Records FoundNo Advanced Directives Records Found Additional Source Comments INFORMATION SOURCE (unrecogn ized section and content) DATE CREATED AUTHOR 12/17/2021 [facility] DATE CREATED AUTHOR AUTHOR'S ORGANIZ ATION 12/16/2022 [facility] DATE CREATED AUTHOR AUTHOR'S ORGANIZ ATION 03/26/2023 [facility] DATE CREATED AUTHOR AUTHOR'S ORGANIZ ATION 10/15/2024 [facility] Patient Care team informatio n (unrecognized section and content) Personnel Name: Kendra Moran MD Address: Address: [address] [place] [address] Personnel Name: Kendra Moran MD Address: Address: [address] [place] [address] FOR RECORDS PERTAINING TO PATIENTS WHO ARE [...] BE BASED ON THE PRIMARY CLINICAL RECORDS. [facility] [employer] [facility]. provides no warranty or guarantee of the accuracy or completeness of information in this document.
[2024-11-12 11:34] LABS: Troponin I High Sensitivity 52.3 pg/mL (4.0-51.3)
[2024-11-12 11:53] LABS: Glucometer 112 mg/dL (74-106)
[2024-11-12] MEDS: CANAGLIFLOZIN 100 MG TABLET PO (12:04)
[2024-11-12] MEDS: METFORMIN HCL 500 MG TABLET PO ×2 (12:04→20:56)
[2024-11-12] MEDS: POTASSIUM CHLORIDE 10 MEQ ER TABLET PO ×2 (12:04→20:56)
[2024-11-12] MEDS: ISOSORBIDE MONONITRATE 60 MG TAB.ER.24H PO ×2 (12:04→20:57)
[2024-11-12] MEDS: CARVEDILOL 25 MG TABLET PO ×2 (12:05→22:07)
[2024-11-12] MEDS: LOSARTAN POTASSIUM 50 MG TABLET 100 MG PO (12:05)
[2024-11-12] MEDS: ACETAMINOPHEN 500 MG TABLET 1000 MG PO ×2 (13:45→19:28)
[2024-11-12] MEDS: HYDRALAZINE HCL 20 MG/ML VIAL 10 MG IVP ×2 (13:49→19:28)
[2024-11-12 17:03] LABS: Glucometer 90 mg/dL (74-106)
[2024-11-12 21:29] LABS: Glucometer 97 mg/dL (74-106)
[2024-11-12] MEDS: QUETIAPINE FUMARATE 100 MG TABLET PO (22:07)
--- NOTE | 2024-11-12 23:55 | PC.NURSE ---
Patient states headache is 9/10 pain. Discussed PRN med options. Offered Tylenol patient refused. BP checked 135/64.
[2024-11-13] VITALS (10 sets, daily range): BP systolic 107–124; BP diastolic 56–61; PULSE 62–82; TEMP 36.4–36.8; O2SAT 91–96
[2024-11-13] MEDS: CARVEDILOL 25 MG TABLET PO (05:18)
[2024-11-13 05:51] LABS: Basophils Absolute Auto 0.1 10^3/uL (0.0-0.1); Basophils Percent Auto 1.1 % (0.2-2.0); Eosinophils Absolute Auto 0.2 10^3/uL (0.0-0.7); Eosinophils Percent Auto 3.8 % (0.9-7.0); Hemoglobin 10.8 g/dL (12.0-16.0); Lymphocytes Absolute Auto 1.8 10^3/uL (1.2-3.8); Lymphocytes Percent Auto 38.9 % (20.5-60.0); Mean Corpuscular HGB Conc 30.9 g/dL (29.9-35.2); Mean Corpuscular Volume 84.3 fL (81.0-99.0); Mean Platelet Volume 9.7 fL (9.5-13.5); Monocytes Absolute Auto 0.4 10^3/uL (0.3-0.8); Monocytes Percent Auto 9.3 % (1.7-12.0); Neutrophils Absolute Auto 2.2 10^3/uL (1.4-6.5); Neutrophils Percent Auto 46.9 % (43.0-75.0); Platelet Count 189 10^3/uL (150-450); Red Blood Count 4.15 10^6/uL (4.20-5.40); Red Cell Distribution Width 15.7 % (11.0-15.0); White Blood Count 4.7 10^3/uL (4.0-11.0)
[2024-11-13 06:14] LABS: Anion Gap 12.8; BUN Creatinine Ratio 15.8; Calcium 8.8 mg/dL (8.5-10.1); Carbon Dioxide 27.8 mmol/L (21.0-32.0); Chloride 108 mmol/L (98-107); Estimated GFR (African America 55 (>=60 mL/min/1.73m^2); Estimated GFR (Non-African Ame 46 (>=60 mL/min/1.73m^2); Glucose 101 mg/dL (74-106); Potassium 3.6 mmol/L (3.5-5.1); Sodium 145 mmol/L (136-145); Troponin I High Sensitivity 25.8 pg/mL (4.0-51.3)
[2024-11-13 08:13] LABS: Glucometer 101 mg/dL (74-106)
[2024-11-13] MEDS: METFORMIN HCL 500 MG TABLET PO (08:14)
[2024-11-13] MEDS: CANAGLIFLOZIN 100 MG TABLET PO (08:14)
[2024-11-13] MEDS: CLOPIDOGREL BISULFATE 75 MG TABLET PO (08:14)
[2024-11-13] MEDS: POTASSIUM CHLORIDE 10 MEQ ER TABLET PO (08:14)
[2024-11-13] MEDS: ASPIRIN 81 MG TAB.CHEW PO (08:15)
[2024-11-13] MEDS: ISOSORBIDE MONONITRATE 60 MG TAB.ER.24H PO (08:15)
[2024-11-13] MEDS: PANTOPRAZOLE SODIUM 40 MG VIAL IV (08:15)
--- NOTE | 2024-11-13 08:27 | P.DS_ITS ---
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 In a patient with known coronary artery disease now with hypertensive urgency resulting in acute NSTEMI-improved blood pressure control, track and trend troponins, if go up significantly will need be transferred to a tertiary care facility for further workup Hypokalemia-supplement Hypernatremia-monitor daily Iron deficiency anemia-monitor daily GERD-do IV Protonix Generalized anxiety disorder continue home medications Diabetes mellitus-Home medications plus insulin sliding scale Admission status: Patient with significant elevated high blood pressure resulting in hypertensive urgency resulting in acute NSTEMI-Place patient observational status second troponin not significantly elevated compared to the first 1, will see what the third 1 shows. Better than 50% chance that should be discharged to home, if third troponin is elevated will change patient to inpatient status is medically necessary treatment will span 2 midnights ? DS: Summary Hospital Course Hospital Course: Patient presented to emergency room with epigastric pain. Workup initiated showed a significant elevated high blood pressure. High-sensitivity troponin was obtained and showed significant elevation. This was trending down throughout the admission. When I saw patient in the emergency room, resting c ompany bed still had a little bit of epigastric discomfort. Case was discussed with cardiology and felt she had an acute NSTEMI, possibly the previous day, she was admitted for tracking and trending her troponins was decreased throughout the hospitalization, her blood pressure stabilized with medication adjustments. She was ambulating in the [place] without any chest pain. She be discharged to [facility] in improving condition. Medications see list. Follow-up with me in the office within the next week. Status at Discharge Overall status at discharge: patient is back to baseline Time Spent with Patient Time attestation: Total time spent providing and/or coordinating discharge services: Time spent: greater than 30 minutes Exam Constitutional Vital Signs, click to edit/add: Last Vital Signs Temp 97.6 F 11/13/24 08:22 Pulse 69 11/13/24 08:22 Resp 16 11/13/24 08:22 BP 107/59 11/13/24 08:22 Pulse Ox 91 L 11/13/24 08:22 O2 Del Method Room Air 11/13/24 08:22 O2 Flow Rate 2 11/13/24 03:00 DS: Data Data Completed and Pending Labs on day of discharge: Labs from last 24 hours 11/13/24 11/13/24 11/12/24 08:12 05:29 21:28 WBC 4.7 RBC 4.15 L Hgb 10.8 L Hct 35.0 L MCV 84.3 MCH 26.0 L MCHC 30.9 RDW 15.7 H Plt Count 189 MPV 9.7 Neut % (Auto) 46.9 Lymph % (Auto) 38.9 Cochran % (Auto) 9.3 Eos % (Auto) 3.8 Baso % (Auto) 1.1 Neut # (Auto) 2.2 Lymph # (Auto) 1.8 Cochran # (Auto) 0.4 Eos # (Auto) 0.2 Baso # (Auto) 0.1 Abs Immat Gran (auto) 0.00 Imm/Tot Granulo (auto) 0.0 Sodium 145 Potassium 3.6 Chloride 108 H Carbon Dioxide 27.8 Anion Gap 12.8 BUN 19.0 H Creatinine 1.20 H Est GFR ( Amer) 55 L Est GFR (Non-Af Amer) 46 L BUN/Creatinine Ratio 15.8 Glucose 101 Calcium 8.8 Troponin I High Sens 25.8 NT-Pro-B Natriuret Pep POC Glucose 101 97 11/12/24 11/12/24 11/12/24 16:56 13:51 11:52 WBC RBC Hgb Hct MCV MCH MCHC RDW Plt Count MPV Neut % (Auto) Lymph % (Auto) Cochran % (Auto) Eos % (Auto) Baso % (Auto) Neut # (Auto) Lymph # (Auto) Cochran # (Auto) Eos # (Auto) Baso # (Auto) Abs Immat Gran (auto) Imm/Tot Granulo (auto) Sodium Potassium Chloride Carbon Dioxide Anion Gap BUN Creatinine Est GFR ( Amer) Est GFR (Non-Af Amer) BUN/Creatinine Ratio Glucose Calcium Troponin I High Sens 50.0 NT-Pro-B Natriuret Pep POC Glucose 90 112 H 11/12/24 11/12/24 11:02 08:14 WBC RBC Hgb Hct MCV MCH MCHC RDW Plt Count MPV Neut % (Auto) Lymph % (Auto) Cochran % (Auto) Eos % (Auto) Baso % (Auto) Neut # (Auto) Lymph # (Auto) Cochran # (Auto) Eos # (Auto) Baso # (Auto) Abs Immat Gran (auto) Imm/Tot Granulo (auto) Sodium Potassium Chloride Carbon Dioxide Anion Gap BUN Creatinine Est GFR ( Amer) Est GFR (Non-Af Amer) BUN/Creatinine Ratio Glucose Calcium Troponin I High Sens 52.3 H* 60.1 H* NT-Pro-B Natriuret Pep 306.0 POC Glucose Discharge Plan Discharge Disposition: Home, Self-Care Discharge Medications: New Invokana 300 mg tablet 300 mg PO DAILY Qty: 30 11RF pantoprazole [Protonix] 40 mg tablet,delayed release (DR/EC) 40 mg PO BID Qty: 60 11RF Continued metformin 500 mg tablet 500 mg PO BID aspirin 81 mg capsule 81 mg PO DAILY sennosides-docusate sodium [Colace 2-In-1] 8.6-50 mg tablet 1 tab-cap PO DAILY PRN (Reason: constipation) losartan 100 mg tablet 100 mg PO DAILY rosuvastatin 40 mg tablet 40 mg PO DAILY quetiapine [Seroquel] 100 mg tablet 100 mg PO .QHS Rx Instructions: AT HS carvedilol 25 mg Tablet 25 mg PO TID Qty: 90 11RF isosorbide mononitrate 60 mg Tablet Extended Release 24 Hr 60 mg PO BID lorazepam [Ativan] 1 mg tablet 1 mg PO Q6H PRN (Reason: anxiety) hydralazine 50 mg tablet 50 mg PO TID PRN (Reason: hypertension) Rx Instructions: States takes it if syst>150 albuterol sulfate 90 mcg/actuation HFA aerosol inhaler 2 puff INHALATION Q4H PRN (Reason: shortness of breath or wheezing) clopidogrel 75 mg tablet 75 mg PO DAILY Discontinued pantoprazole [Protonix] 40 mg tablet,delayed release (DR/EC) 40 mg PO .ACB Invokana 100 mg Tablet 100 mg PO QD Qty: 30 11RF Activity: resume usual activities as tolerated Diet: advance to your usual diet Print Language: Albanian Patient Instructions: Hypertensive Crisis (DC), Hypertension (DC) Forms: Portal Instructions Follow Up Appointments: @ 10:30am with Dr. Murillo [phone] Discharge Date/Time: 11/13/24 11:10
--- NOTE | 2024-11-13 11:29 | SWNOTE1 ---
SW met with pt to discuss dc needs. Pt lives at home alone and her kids are close by if she needs anything. Pt voiced no discharge needs or concerns at this time. Pt is dressed and ready to go. Nurse came in with dc paperwork and pt's daughter is picking her up.
--- NOTE | 2024-11-14 10:25 | CM.DCFOLLOWU ---
Person spoke with: Aby How are you feeling? Much better How is your pain? No pain Did you understand your discharge instructions? Yes Do you have any questions about your discharge instructions? No Were you given any prescriptions at discharge? Yes Were you able to get your prescriptions filled? Yes Do you understand how to take your medications as ordered? Yes Do you have any questions about your follow up appointment and do you plan to keep your follow up appointment? It is scheduled and yes I will go to appt Is there anything else that you would like to discuss? No Questions/Comments/Concerns/Other:
== END 2024-11-13 11:10 | disposition home or self-care (01) ==
LOC: ER 10:37 → ICU 11:24 → MS 17:33
PROVIDERS: Student in an Organized Health Care Education/Training Program; Admitting Provider Family Medicine; Emergency Provider Emergency Medicine; PCP Family Medicine; Visit Provider Family Medicine
DX: I16.0 Hypertensive urgency (principal); I21.A1 Myocardial infarction type 2; I10 Essential (primary) hypertension; E11.9 Type 2 diabetes mellitus without complications; I25.10 Atherosclerotic heart disease of native coronary artery without angina pectoris; E87.6 Hypokalemia; D50.9 Iron deficiency anemia, unspecified; K21.9 Gastro-esophageal reflux disease without esophagitis; E87.0 Hyperosmolality and hypernatremia; Z79.84 Long term (current) use of oral hypoglycemic drugs; Z79.02 Long term (current) use of antithrombotics/antiplatelets; Z79.82 Long term (current) use of aspirin; Z79.899 Other long term (current) drug therapy; Z87.891 Personal history of nicotine dependence; Z88.8 Allergy status to other drugs, medicaments and biological substances; Z86.73 Personal history of transient ischemic attack (TIA), and cerebral infarction without residual deficits; Z95.5 Presence of coronary angioplasty implant and graft; F41.1 Generalized anxiety disorder
CPT/HCPCS: 36415; 71045; 80048; 80053; 82948; 83690; 83880; 84484; 85025; 93005; 94761; 96374; 96375; 96376; 99285; G0378; J0360; J2405

== ENCOUNTER 2024-11-15 21:47 | Emergency (ER) | payer MEDICAID, SELFPAY ==
[2024-11-15] VITALS (18 sets, daily range): BP systolic 154–181; BP diastolic 64–82; PULSE 68–78; TEMP 36.4; O2SAT 95–98; BMI 36.3
--- OUTSIDE RECORDS SUMMARY | 2024-11-15 21:52 | XMS_ITS | CCD ---
Author Organization [facility] Team Providers Care Cna Name Role Phone Kendra Moran Primary Care Physician [phone] Umm LANDON Attending Unavailable NILL, Umm Michael [...] HOY ., DR GARDNER Primary Care Unavailable [place], DR ADELIA Medrano Consulting Unavailable KENDRA MORAN [...] Medication Allergies] Propensity to adverse reactions (disorder) [facility] Repository (1 source) ALPRAZolam; Translations: [ALPRAZOLAM] Drug Allergy [address] [place] [address] Repository (1 source) amLODIPine; Translations: [AMLODIPINE] Drug Allergy [address] [place] [address] Repository (1 source) Lisinopril; Translations: [LISINOPRIL] Drug Allergy [address] [place] [address] Repository Medications Current Medications Medication Drug Class(es) [...] Coronary arteriosclerosis; Translations: [Atherosclerotic heart disease of [place] coronary artery without angina pectoris] Onset: 11-26-2022 [...] Onset: 06-29-2024 Episodic Other aftercare (1 source) prison (current) use of aspirin; Translations: [LONGTERM CURRENT USE OF ASPIRIN] Onset: 11-26-2022 Episodic Other aftercare (1 source) 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 37on 10-03-2024 37 It was good to see y ou again Your recent CAT scan is reassuring showing me that your left adrenal mass has actually shrunk in size we no longer need to monitor this at all with any repeat CAT scans. To confirm if you have primary aldosteronism were going to do something called a saline infusion test at the [facility] they will be in contact with you likely within the next week. This is a 2-hour test in which we infused saline 2 L and assess any changes in your aldosterone level. This is in a monitored setting so you will not be alone. [facility] Follow-Upon 10-03-2024 Follow-Up [id number] Aby Madrigal 1965 F Date Provider Department Center 10/03/2024 [id number], [facility] ENDOCR [facility] Family History Problem Relation Age of Onset Lung cancer Mother No Known Problems Father Lung cancer Sister Family Status - Relation Status Age at Mother Father Sister Level of Service:94767 OR OFFICE/OUTPATIENT ESTABLISHED MOD MDM 30 MIN Reason for Visit and Comments: Follow-up [680727] [facility] Office Visiton 09-04-2024 Follow-up visit [id number] Aby Madrigal 1965 F Date Provider Department Center 09/04/2024 GOMEZ KENDALL RIAZ [place] Family History Problem Relation Age of Onset Lung cancer Mother No Known Problems Father Lung cancer Sister Family Status - Relation Status Age at Mother Father Sister Level of Service:30191 OR OFFICE/OUTPATIENT ESTABLISHED MOD MDM [address] [facility] ALDOSTERONEon 08-29-2024 ALDOSTERONE (NG/DL) IN SER/PLAS 13.0 ng/dL [facility] Comment on above: Result Comment: INTE [...] reference intervals for this test in the [facility] ([facility]). Performed By: [facility] [address] [place] [address] Membership Correspondent: Navneet Simeon MD, PhD CLIA Number: [id number] Performed By: #### L [id number] #### [facility] (BEAKER) [address] [place] [address] Ron 08-29-2024 ALT [Catalytic activity/Vol] 25 U/L Normal 7-52 [facility] Comment on above: Performed By: #### L [id number] ####[facility] (BEAKER)[address] [place] [address] Riki 08-29-2024 AST [Catalytic activity/Vol] 21 U/L Normal 13-39 [facility] Comment on above: Performed By: #### L [id number] ####[facility] (BEAKER)[address] [place] [address] BASIC METABOLIC PANELon 10-0 Anion gap [Moles/Vol] 12 mmol/L Normal 7-20 [facility] Comment on above: Performed By: #### L [id number] ####[facility] (BEAKER)[address] [place] [address] Calcium [Mass/Vol] 9.3 mg/dL Normal 8.6-10.3 [facility] Comment on above: Performed By: #### L [id number] ####[facility] (BEAKER)[address] [place] [address] Chloride [Moles/Vol] 105 mmol/L Normal 98-107 [facility] Comment on above: Performed By: #### L [id number] ####[facility] (BEAKER)[address] [place] [address] CO2 [Moles/Vol] 28 mmol/L Normal 21-31 [facility] Comment on above: Performed By: #### L [id number] ####[facility] ([facility])[address] [place] [address] Creatinine [Mass/Vol] 0.95 mg/dL Normal 0.60-1.20 [facility] Comment on above: Performed By: #### L [id number] ####[facility] ([facility])[address] [place] [address] GLOMERULAR FILTRATION RATE ML/MIN/1.73 SQ M.PREDICTED 68.6 mL/min/1.73m*2 Normal >60.0 [facility] Comment on above: Result Comment: [facility]???s estimated glomerular filtration rate (eGFR) will [...] of individuals. Performed By: #### L [id number] ####[facility] ([facility])[address] [place] [address] Glucose [Mass/Vol] 99 mg/dL Normal 70-100 [facility] Comment on above: Performed By: #### L [id number] ####[facility] ([facility])[address] [place] [address] Potassium [Moles/Vol] 3.6 mmol/L Normal 3.5-5.1 [facility] Comment on above: Performed By: #### L [id number] ####[facility] ([facility])[address] [place] [address] Sodium [Moles/Vol] 141 mmol/L Normal 136-145 [facility] Comment on above: Performed By: #### L [id number] ####[facility] ([facility])[address] [place] [address] Urea nitrogen [Mass/Vol] 19 mg/dL Normal 7-25 [facility] Comment on above: Performed By: #### L [id number] ####[facility] ([facility])[address] [place] [address] UREA NITROGEN/CREATININE (MASS RATIO) IN SER/PLAS 20.0 Normal [facility] Comment on above: Performed By: #### L [id number] ####[facility] ([facility])[address] [place] [address] CORTISOLon 08-29-2024 CORTISOL (UG/DL) IN SER/PLAS 6.1 ug/dL Normal 0-9 [facility] Comment on above: Performed By: #### L [id number] #### [facility] ([facility]) [address] [place] [address] CT ABDOMEN PELVIS W AND WO I [...] Electronically signed: Marybeth Lane Invalid Interpretation Code [facility] DEXAMETHASONE LEVELon 2023 DEXAMETHASONE <50.0 [facility] Comment on above: Order Comment: Blood [...] developed and its performance characteristics determined by [facility]. It has not been cleared or approved by the US Food and Drug Administration. This test was performed in a CLIA certified laboratory and is intended for clinical purposes. Performed By: [employer] [address] [place] [address] Membership Correspondent: Navneet Simeon MD, PhD CLIA Number: [id number] Performed By: #### L [id number] #### [facility] ([facility]) [address] [place] [address] LIPID PANELon 08-29-2024 CHOL/HDL 2.4 mg/dL [facility] Comment on above: Performed By: #### L [id number] #### [facility] ([facility]) [address] [place] [address] Cholesterol [Mass/Vol] 80 mg/dL Low 120-200 [facility] Comment on above: Performed By: #### L [id number] #### [facility] ([facility]) [address] [place] [address] Magnesium [Mass/Vol] 96 mg/dL Normal 40-149 [facility] Comment on above: Result Comment: TRIG LYCERIDE REFERENCE RANGE: 20 YEARS AND OLDER CARDIOVASCULAR RISK LESS THAN 150 mg/dL LOW RISK 150 TO 199 mg/dL BORDERLINE RISK 200 mg/dL AND GREATER HIGH RISK Performed By: #### L [id number] #### [facility] ([facility] [address] [place] [address] Magnesium [Mass/Vol] 28 mg/dL Normal 0-160 [facility] Comment on above: Performed By: #### L [id number] #### [facility] ([facility]) [address] [place] [address] Magnesium [Mass/Vol] 33 mg/dL Normal 23-92 [facility] Comment on above: Performed By: #### L [id number] #### [facility] (BEAKER) [address] [place] [address] NON HDL CHOL. (LDL+VLDL) 47 Normal [facility] Comment on above: Performed By: #### L [id number] #### [facility] (BEAKER) [address] [place] [address] TOTAL VLDL-C 19 mg/dL Normal 0-40 [facility] Comment on above: Performed By: #### L [id number] #### [facility] (BEAKER) [address] [place] [address] Labon 08-29-2024 Lab [id number] Aby Madrigal Cristina 1965 F Date Provider Department Center 08/29/2024 2245-[facility] OPD LAB RESOURCE [facility] OPD [facility] Family History Problem Relation Age of Onset Lung cancer Mother No Known Problems Father Lung cancer Sister Family Status - Relation Status Age at Mother Father Sister [facility] RENIN ACTIVITYon 08-29-2024 RENIN ACTIVITY <0.1 [facility] Comment on above: Result Comment: [...] developed and its performance characteristics determined by [facility]. It has not been cleared or approved by the US Food and Drug Administration. This test was performed in a CLIA certified laboratory and is intended for clinical purposes. Performed By: [facility] [address] [place] [address] Membership Correspondent: Navneet Simeon MD, PhD CLIA Number: [id number] Performed By: #### L [id number] ####[facility] ([facility])[address] [place] [address] 36on 08-10-2024 36 Updated patient on Nodify blood test results and plan for f/u CT and appt scheduled for 10/26/24. [facility] Letter (Out)on 08-09-2024 Letter (Out) [id number] Aby Madrigal 1965 F Date Provider Department Center 08/09/2024 None-None [facility] ADMIT None Family History Problem Relation Age of Onset Lung cancer Mother No Known Problems Father Lung cancer Sister Family Status - Relation Status Age at Mother Father Sister [facility] 36on 08-08-2024 36 Called patient over the phone at 9:17 AM - discussed recent lab results from [facility] (including M cortisol of 1.7 after dex, renin undetectable, aldosterone level 4.4) - ruled out autonomous cortisol production - she has stopped spironolactone for about 2 weeks now, continue to hold this until our next appt and we will reassess ARR. We will meet again on Oct 03 She thanked me for the call [facility] Orders Onlyon 08-08-2024 Orders Only [id number] Rohan,Aby S 1965 F Date Provider Department Center 08/08/2024 RICHA MERINO ONC NICKI Family History Problem Relation Age of Onset Lung cancer Mother No Known Problems Father Lung cancer Sister Family Status - Relation Status Age at Mother Father Sister [facility] Telephoneon 08-08-2024 Telephone [id number] Rohan,Aby S 1965 F Date Provider Department Center 08/08/2024 [id number], [facility] ENDOCR [facility] Family History Problem Relation Age of Onset Lung cancer Mother No Known Problems Father Lung cancer Sister Family Status - Relation Status Age at Mother Father Sister [facility] Telemedicineon 07-20-2024 Telemedicine [id number] Nelababebe,Aby S 1965 Date Provider Department Center 07/20/2024 RICHA MERINO ONC NICKI Family History Problem Relation Age of Onset Lung cancer Mother No Known Problems Father Lung cancer Sister Family Status - Relation Status Age at Mother Father Sister Level of Service:07816 OR PHYS/QHP TELEPHONE EVALUATION 21-30 MIN () Reason for Visit and Comments: 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 CHEST 04-21-24- PET 06-21-24 Films requested 07-18-24 HAVING HARD TIME GETTING FILMS FROM [facility] AGAIN. Ginny at [facility] ([phone] direct line) is working on sending them. CHECK [facility] FOR FILMS PLEASE [facility] 37on 07-18-2024 37 It was great [...] work done at one of these [facility] Lab Sites The results will then come straight to me I appreciate it [facility] [address] [facility] [address], [place] Hours Wednesday - Wednesday 8 AM - 4PM (Closed 12 - 12:30 PM daily) Phone: [facility] L[facility] [address] Hours: Wednesday 6 AM - 5 PM Saturday: 7 AM - 2 PM Phone: [address] [place] Hours: Wednesday - Wednesday 7 AM - 3:30 PM Phone: [facility] [address] Hours: Wednesday 7 AM - 5:30 PM Phone: [facility] [address] Hours: Wednesday - Wednesday 8 AM - 4:30 PM Phone: [facility] EDNURSon 07-18-2024 EDNURS ADR and relevant inf o reported to [facility] in pharmacy d/t safety net being down. Viet Kelly RN 07/18/24 1139 [facility] EDNURS SENT FROM MD OFFICE RE: LOW BP; RECENT DC FROM [facility] FOR SAME [facility] EDPROVon 07-18-2024 EDPROV HPI Chief [...] new meds yesterday. 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 [facility] Office Visiton 07-18-2024 Follow-up visit [id number] Aby Madrigal 1965 Date Provider Department Center 07/18/2024 FENG SWE[place]Y [facility] Family History Problem Relation Age of Onset Lung cancer Mother No Known Problems Father Lung cancer Sister Family Status - Relation Status Age at Mother Father Sister Level of Service:31967 OR OFFICE/OUTPATIENT NEW MODERATE MDM 45 MINUTES Reason for Visit and Comments: Nodules [Other] [facility] Follow-up visit [id number] Aby Madrigal 1965 F Date Provider Department Center 07/18/2024 FENG [place] [facility] Family History Problem Relation Age of Onset Lung cancer Mother No Known Problems Father Lung cancer Sister Family Status - Relation Status Age at Mother Father Sister 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 36on 07-13-2024 36 Post Discharge Call Good morning, I am Ginny Garcia RN a lead nurse from [facility]. I am calling you to follow up [...] No Patient Name Aby Madrigal Date 07/13/24 [facility] Telephoneon 07-13-2024 Telephone [id number] Aby Madrigal 1965 F Date Provider Department Center 07/13/2024 GINNY MALONEY [facility] Family History Problem Relation Age of Onset Lung cancer Mother No Known Problems Father Lung cancer Sister Family Status - Relation Status Age at Mother Father Sister Reason for Visit and Comments: Hospital Follow-up [832] [facility] 30on 07-12-2024 30 The patient is [...] to address these barriers include . [facility] ANTI-XA (HEPARIN LEVEL)on HEPARIN UNFRACTIONATED (U/ML) IN PPP BY CHROMOGENIC METHOD 0.60 IU/mL Normal 0.3-0.7 [facility] Comment on above: Order Comment: Check anti-Xa level every 6 hours while on heparin infusion, or per protocol. Result Comment: Radha roxaban and Apixaban will interfere with the anti Xa assay used to monitor UFH and LMWH. Performed By: #### L [id number] #### [facility] ([facility]) [address] [place] [address] BASIC METABOLIC PANELon 06-23 Anion gap [Moles/Vol] 10 mmol/L Normal 7-20 [facility] Comment on above: Performed By: #### L [id number] #### [facility] ([facility]) [address] [place] [address] Calcium [Mass/Vol] 8.8 mg/dL Normal 8.6-10.3 [facility] Comment on above: Performed By: #### L [id number] #### [facility] (BEAKER) [address] [place] [address] Chloride [Moles/Vol] 108 mmol/L High 98-107 [facility] Comment on above: Performed By: #### L [id number] #### [facility] (BEAKER) [address] [place] [address] CO2 [Moles/Vol] 27 mmol/L Normal 21- [facility] Comment on above: Performed By: #### L [id number] #### [facility] (BEAKER) [address] [place] [address] Creatinine [Mass/Vol] 0.89 mg/dL Normal 0.60-1.20 [facility] Comment on above: Performed By: #### L [id number] #### [facility] (BEAKER) [address] [place] [address] GLOMERULAR FILTRATION RATE ML/MIN/1.73 SQ M.PREDICTED 74.2 mL/min/1.73m*2 Normal >60.0 [facility] Comment on above: Result Comment: [facility]???s estimated glomerular filtration rate (eGFR) will [...] group of individuals. Performed By: #### L [id number] #### [facility] ([facility]) [address] [place] [address] Glucose [Mass/Vol] 109 mg/dL High 70-100 [facility] Comment on above: Performed By: #### L [id number] #### [facility] ([facility]) [address] [place] [address] Potassium [Moles/Vol] 3.4 mmol/L Low 3.5-5.1 [facility] Comment on above: Performed By: #### L [id number] #### [facility] ([facility]) [address] [place] [address] Sodium [Moles/Vol] 142 mmol/L Normal 136-145 [facility] Comment on above: Performed By: #### L [id number] #### [facility] ([facility]) [address] [place] [address] Urea nitrogen [Mass/Vol] 11 mg/dL Normal 7-25 [facility] Comment on above: Performed By: #### L [id number] #### [facility] ([facility]) [address] [place] [address] UREA NITROGEN/CREATININE (MASS RATIO) IN SER/PLAS 12.4 [facility] Comment on above: Performed By: #### L [id number] #### [facility] ([facility]) [address] [place] [address] CBC WITH AUTO DIFFERENTIALon 07-12-2024 Basophils (Bld) [#/Vol] 0.04 10*3/uL Normal 0.00-0.20 [facility] Comment on above: Performed By: #### L [id number] #### [facility] ([facility]) [address] [place] [address] Basophils/100 WBC (Bld) 0.6 % Normal 0.0-1.0 [facility] Comment on above: Performed By: #### L [id number] #### [facility] ([facility]) [address] [place] [address] Eosinophils (Bld) [#/Vol] 0.22 10*3/uL Normal 0.00-0.50 [facility] Comment on above: Performed By: #### L [id number] #### [facility] ([facility]) [address] [place] [address] Eosinophils/100 WBC (Bld) 3.5 % Normal 0.0-6.0 [facility] Comment on above: Performed By: #### L [id number] #### [facility] ([facility]) [address] [place] [address] Erythrocyte distribution width (RBC) [Ratio] 14.5 % Normal 11.5-15.0 [facility] Comment on above: Performed By: #### L [id number] #### [facility] ([facility]) [address] [place] [address] ERYTHROCYTE MEAN CORPUSCULAR HEMOGLOBIN CONCENTRATION (G/DL) BY AUTOMATED 32.7 g/dL Normal 32.0-35.0 [facility] Comment on above: Performed By: #### L [id number] #### [facility] ([facility]) [address] [place] [address] Hematocrit (Bld) [Volume fraction] 34.2 % Low 36.0-48.0 [facility] Comment on above: Performed By: #### L [id number] #### [facility] ([facility]) [address] [place] [address] Hemoglobin (Bld) [Mass/Vol] 11.2 g/dL Low 12.0-15.0 [facility] Comment on above: Performed By: #### L [id number] #### [facility] (BEAKER) [address] [place] [address] Immature granulocytes (Bld) [#/Vol] 0.01 10*3/uL Normal 0.00-0.20 [facility] Comment on above: Performed By: #### L [id number] #### [facility] (BEAKER) [address] [place] [address] Immature granulocytes/100 WBC (Bld) 0.2 % Normal 0.0-1.0 [facility] Comment on above: Performed By: #### L [id number] #### [facility] ([facility]) [address] [place] [address] Lymphocytes (Bld) [#/Vol] 2.37 10*3/uL Normal 1.20-4.00 [facility] Comment on above: Performed By: #### L [id number] #### [facility] (BEAKER) [address] [place] [address] Lymphocytes/100 WBC (Bld) 37.8 % Normal 20.0-45.0 [facility] Comment on above: Performed By: #### L [id number] #### [facility] (BEAKER) [address] [place] [address] MCH (RBC) [Entitic mass] 27.4 pg Normal 27.0-33.0 [facility] Comment on above: Performed By: #### L [id number] #### [facility] (BEAKER) [address] [place] [address] MCV (RBC) [Entitic vol] 83.6 fL Normal 82.0-98.0 [facility] Comment on above: Performed By: #### L [id number] #### [facility] (BEAKER) [address] [place] [address] Monocytes (Bld) [#/Vol] 0.43 10*3/uL Normal 0.10-1.00 [facility] Comment on above: Performed By: #### L [id number] #### [facility] ([facility]) [address] [place] [address] Monocytes/100 WBC (Bld) 6.9 % Normal 5.0-12.0 [facility] Comment on above: Performed By: #### L [id number] #### [facility] ([facility]) [address] [place] [address] Neutrophils (Bld) [#/Vol] 3.20 10*3/uL Normal 1.60-7.60 [facility] Comment on above: Performed By: #### L [id number] #### [facility] ([facility]) [address] [place] [address] Neutrophils/100 WBC (Bld) 51.0 % Normal 40.0-72.0 [facility] Comment on above: Performed By: #### L [id number] #### [facility] ([facility]) [address] [place] [address] NRBC (PER 100 WBCS) BY AUTOMATED COUNT 0.0 % Normal 0 [facility] Comment on above: Performed By: #### L [id number] #### [facility] ([facility]) [address] [place] [address] PLATELETS (10*3/UL) IN BLOOD AUTOMATED COUNT 223 10*3/uL Normal 150-400 [facility] Comment on above: Performed By: #### L [id number] #### [facility] ([facility]) [address] [place] [address] RBC (Bld) [#/Vol] 4.09 10*6/uL Normal 3.80-5.00 [facility] Comment on above: Performed By: #### L [id number] #### [facility] ([facility]) [address] [place] [address] WBC (Bld) [#/Vol] 6.27 10*3/uL Normal 4.00-10.60 [facility] Comment on above: Performed By: #### L [id number] #### [facility] ([facility]) [address] [place] [address] MAGNESIUMon 07-12-2024 Magnesium [Mass/Vol] 1.7 mg/dL Low 1.9-2.7 [facility] Comment on above: Performed By: #### L [id number] #### [facility] ([facility]) [address] [place] [address] POCT GLUCOSE METER UNSOLICIT ED RESULTSon 07-12-2024 Glucose [Mass/Vol] 102 mg/dL Normal 70-105 [facility] Comment on above: Order Comment: Waive d Testing in the ED is performed under the ED CLIA certificate #[id number]. Result Comment: [email or web address] Performed By: #### L [id number] ####[facility] ([facility])[address] [place] [address] TROPONIN Ion 07-12-2024 Troponin I.cardiac [Mass/Vol] 0.01 ng/mL Normal 0.00-0.04 [facility] Comment on above: Performed By: #### L [id number] #### [facility] ([facility]) [address] [place] [address] 30on 07-11-2024 30 The patient is Moderately [...] and maintained or improved Outcome: Progressing Normal [facility] 30 The patient is Moderately Stable - Low risk of patient condition declining or worsening The patient's goals for the shift include no chest pain The clinical goals for the shift include stable vital/no chest pain Over the shift, the patient did not make progress toward the following goals. Barriers to progression include . Recommendations to address these barriers include . Normal [facility] ALDOSTERONEon 07-11-2024 ALDOSTERONE (NG/DL) IN SER/PLAS 4.9 ng/dL Normal [facility] Comment on above: Result Comment: [...] reference intervals for this test in the [facility] ([facility]). Performed By: [facility] [address] [place] [address] Membership Correspondent: Navneet Simeon MD, PhD CLIA Number: [id number] Performed By: #### L [id number] ####[facility] (BEAKER)[address] [place] [address] ANTI-XA (HEPARIN LEVEL)on HEPARIN UNFRACTIONATED (U/ML) IN PPP BY CHROMOGENIC METHOD 0.42 IU/mL Normal 0.3-0.7 [facility] Comment on above: Order Comment: Check anti-Xa level every 6 hours while on heparin infusion, or per protocol. Result Comment: [place] roxaban and Apixaban will interfere with the anti Xa assay used to monitor UFH and LMWH. Performed By: #### L [id number] ####[facility] (BEAKER)[address] [place] [address] HEPARIN UNFRACTIONATED (U/ML) IN PPP BY CHROMOGENIC METHOD 0.20 IU/mL Low 0.3-0.7 [facility] Comment on above: Order Comment: Waive d Testing in the ED is performed under the ED CLIA certificate #[id number]. Result Comment: [place] roxaban and Apixaban will interfere with the anti Xa assay used to monitor UFH and LMWH. Performed By: #### L [id number] #### [facility] (BEAKER) [address] [place] [address] APTTon 07-11-2024 ACTIVATED PARTIAL THROMBOPLASTIN TIME IN PPP BY COAGULATION ASSAY 43.0 Seconds High 25.0-35.0 [facility] Comment on above: Result Comment: Clin ical significance of the APTT is questionable in the presence of heparin. Performed By: #### L [id number] #### [facility] ([facility]) [address] [place] [address] BASIC METABOLIC PANELon 06-23 Anion gap [Moles/Vol] 9 mmol/L Normal 7-20 [facility] Comment on above: Performed By: #### L [id number] ####[facility] ([facility])[address] [place] [address] Calcium [Mass/Vol] 8.8 mg/dL Normal 8.6-10.3 [facility] Comment on above: Performed By: #### L [id number] ####[facility] ([facility])[address] [place] [address] Chloride [Moles/Vol] 108 mmol/L High 98-107 [facility] Comment on above: Performed By: #### L [id number] ####[facility] ([facility])[address] [place] [address] CO2 [Moles/Vol] 28 mmol/L Normal 21-31 [facility] Comment on above: Performed By: #### L [id number] ####[facility] ([facility])[address] [place] [address] Creatinine [Mass/Vol] 1.09 mg/dL Normal 0.60-1.20 [facility] Comment on above: Performed By: #### L [id number] ####[facility] (BEAKER)[address] [place] [address] GLOMERULAR FILTRATION RATE ML/MIN/1.73 SQ M.PREDICTED 58.2 mL/min/1.73m*2 Low >60.0 [facility] Comment on above: Result Comment: [facility]???s estimated glomerular filtration rate (eGFR) will [...] of individuals. Performed By: #### L [id number] ####[facility] ([facility])[address] [place] [address] Glucose [Mass/Vol] 113 mg/dL High 70-100 [facility] Comment on above: Performed By: #### L [id number] ####[facility] (BEAKER)[address] [place] [address] Potassium [Moles/Vol] 3.4 mmol/L Low 3.5-5.1 [facility] Comment on above: Performed By: #### L [id number] ####[facility] ([facility])[address] [place] [address] Sodium [Moles/Vol] 142 mmol/L Normal 136-145 [facility] Comment on above: Performed By: #### L [id number] ####[facility] (BEAKER)[address] [place] [address] Urea nitrogen [Mass/Vol] 14 mg/dL Normal 7-25 [facility] Comment on above: Performed By: #### L [id number] ####[facility] (BEAKER)[address] [place] [address] UREA NITROGEN/CREATININE (MASS RATIO) IN SER/PLAS 12.8 Normal [facility] Comment on above: Performed By: #### L [id number] ####[facility] (BEAKER)[address] [place] [address] CBC WITH AUTO DIFFERENTIALon 07-11-2024 Basophils (Bld) [#/Vol] 0.04 10*3/uL Normal 0.00-0.20 [facility] Comment on above: Performed By: #### L [id number] #### [facility] (BEAKER) [address] [place] [address] Basophils/100 WBC (Bld) 0.6 % Normal 0.0-1.0 [facility] Comment on above: Performed By: #### L [id number] #### [facility] (BEAKER) [address] [place] [address] Eosinophils (Bld) [#/Vol] 0.16 10*3/uL Normal 0.00-0.50 [facility] Comment on above: Performed By: #### L [id number] #### [facility] ([facility]) [address] [place] [address] Eosinophils/100 WBC (Bld) 2.2 % Normal 0.0-6.0 [facility] Comment on above: Performed By: #### L [id number] #### [facility] ([facility]) [address] [place] [address] Erythrocyte distribution width (RBC) [Ratio] 14.6 % Normal 11.5-15.0 [facility] Comment on above: Performed By: #### L [id number] #### [facility] ([facility]) [address] [place] [address] ERYTHROCYTE MEAN CORPUSCULAR HEMOGLOBIN CONCENTRATION (G/DL) BY AUTOMATED 32.0 g/dL Normal 32.0-35.0 [facility] Comment on above: Performed By: #### L [id number] #### [facility] (BEAKER) [address] [place] [address] Hematocrit (Bld) [Volume fraction] 36.2 % Normal 36.0-48.0 [facility] Comment on above: Performed By: #### L [id number] #### [facility] (BEAKER) [address] [place] [address] Hemoglobin (Bld) [Mass/Vol] 11.6 g/dL Low 12.0-15.0 [facility] Comment on above: Performed By: #### L [id number] #### [facility] ([facility]) [address] [place] [address] Immature granulocytes (Bld) [#/Vol] 0.02 10*3/uL Normal 0.00-0.20 [facility] Comment on above: Performed By: #### L [id number] #### [facility] ([facility]) [address] [address] Immature granulocytes/100 WBC (Bld) 0.3 % Normal 0.0-1.0 [facility] Comment on above: Performed By: #### L [id number] #### [facility] ([facility]) [address] [place] [address] Lymphocytes (Bld) [#/Vol] 2.34 10*3/uL Normal 1.20-4.00 [facility] Comment on above: Performed By: #### L [id number] #### [facility] ([facility]) [address] [address] Lymphocytes/100 WBC (Bld) 32.6 % Normal 20.0-45.0 [facility] Comment on above: Performed By: #### L [id number] #### [facility] ([facility]) [address] [address] MCH (RBC) [Entitic mass] 27.2 pg Normal 27.0-33.0 [facility] Comment on above: Performed By: #### L [id number] #### [facility] ([facility]) [address] [place] [address] MCV (RBC) [Entitic vol] 85.0 fL Normal 82.0-98.0 [facility] Comment on above: Performed By: #### L [id number] #### [facility] (BEAKER) [address] [place] [address] Monocytes (Bld) [#/Vol] 0.49 10*3/uL Normal 0.10-1.00 [facility] Comment on above: Performed By: #### L [id number] #### [facility] ([facility]) [address] [place] [address] Monocytes/100 WBC (Bld) 6.8 % Normal 5.0-12.0 [facility] Comment on above: Performed By: #### L [id number] #### [facility] ([facility]) [address] [place] [address] Neutrophils (Bld) [#/Vol] 4.13 10*3/uL Normal 1.60-7.60 [facility] Comment on above: Performed By: #### L [id number] #### [facility] ([facility]) [address] [place] [address] Neutrophils/100 WBC (Bld) 57.5 % Normal 40.0-72.0 [facility] Comment on above: Performed By: #### L [id number] #### [facility] ([facility]) [address] [place] [address] NRBC (PER 100 WBCS) BY AUTOMATED COUNT 0.0 % Normal 0 [facility] Comment on above: Performed By: #### L [id number] #### [facility] ([facility]) [address] [place] [address] PLATELETS (10*3/UL) IN BLOOD AUTOMATED COUNT 245 10*3/uL Normal 150-400 [facility] Comment on above: Performed By: #### L [id number] #### [facility] ([facility]) [address] [place] [address] RBC (Bld) [#/Vol] 4.26 10*6/uL Normal 3.80-5.00 [facility] Comment on above: Performed By: #### L [id number] #### [facility] ([facility]) [address] [place] [address] WBC (Bld) [#/Vol] 7.18 10*3/uL Normal 4.00-10.60 [facility] Comment on above: Performed By: #### L [id number] #### [facility] QIANA LALA) [place] [address] CONSULTon 07-11-2024 CONSULT -- Attestation signed by [...] Brown is the endocrine surgeon in the [place] area that would be most appropriate and [...] with plan for outpatient follow up with [facility]inology Meseret Apodaca MD Cardiology Consult Note Reason for Consult: Chest pain HPI: Aby Madrigal is a 59 y.o. female patient is presenting as a transfer from [facility] for the evaluation of chest pain. Past [...] medical history of Abnormal ECG, Diabetes mellitus ([facility]), Hyperlipidemia, Hypertension, Obstructive sleep apnea, Panic attacks, and Stroke ([facility]). Surgical History She has a [...] Value Ventricular Rate 56 Atrial Rate 56 OR Interval 180 QRS DURATION 94 QT Interval 430 QTC (more content not included)... Normal [facility] EDPROVon 07-11-2024 EDPROV HPI Chief Complaint [...] Pt states she was trasnfered here from [place] transferred to cardiology. Pt states she had a cardiac stent placed last week. She denies fever, coughing, vomiting, abdominal pain. She admits diarrhea. She felt better when given ativan and worse when she was given morphine. She has had her gallbladder removed. 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 The Emergency Physician/GLASS FINISHER/PA-C assumes full responsibility for those entries. The Emergency Physician/GLASS FINISHER/PA-C also attests that any patient testing or treatment that was instituted by nursing staff. [facility] EDPROV HPI Chief Complaint Patient presents [...] Pt states she was trasnfered here from [place] to be transferred to cardiology. Pt states she had a cardiac stent placed last week. She denies fever, coughing, vomiting, abdominal pain. She admits diarrhea. She felt better when given ativan and worse when she was given morphine. She has had her gallbladder removed. 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 Chest Pain Associated symptoms: no abdominal pain, no cough, no fever and no vomiting Musa Coma Scale Score: 15 Patient History Past Medical History: Diagnosis Date Abnormal ECG Diabetes mellitus ([facility]) Hyperlipidemia Hypertension Obstructive sleep apnea Panic attacks Stroke ([facility]) Past Surgical History: Procedure Laterality [...] 07/11/24 1256 NSTEMI (non-ST elevated myocardial infarction) ([facility]) Medical Decision Making Amount and/or Complexity of Data Reviewed Labs: ordered. Decision-making details documented in ED Course. ECG/medicine tests: ordered and independent interpretation performed. Decision-making details documented in ED Course. Risk Drug therapy requiring intensive monitoring for toxicity. Decision regarding hospitalization. Minor surgery with identified risk factors. I, Basilia diallo (more content not included)... Invalid Interpretation Code [facility] POCT GLUCOSE METER UNSOLICIT ED RESULTSon 07-11-2024 Glucose [Mass/Vol] 122 mg/dL High 70-105 [facility] Comment on above: Order Comment: Waive d Testing in the ED is performed under the ED CLIA certificate #[id number]. Result Comment: elton [email or web address] Performed By: #### L [id number] #### [facility] (BEAKER) [address] [place] [address] PROTIME-INRon 07-11-2024 INR IN PPP BY COAGULATION ASSAY 1.00 Normal 0.90-1.10 [facility] Comment on above: Result Comment: ACCC [...] RANGE. CHEST 1995;108:[id number]-246S. Performed By: #### L [id number] #### [facility] (BEAKER) [address] [place] [address] PROTHROMBIN TIME (PT) IN PPP BY COAGULATION ASSAY 13.2 Seconds Normal 12.3-14.8 [facility] Comment on above: Performed By: #### L [id number] #### [facility] (BEAKER) [address] [place] [address] RENIN ACTIVITYon 07-11-2024 RENIN ACTIVITY <0.1 Normal [facility] Comment on above: Result Comment: INTE RPRETIVE INFORMATION: Renin Activity Adult, Normal sodium diet: Supine ................. 0.2-1.6 ng/mL/hr Upright ................ 0.5-4.0 ng/mL/hr Children, Normal sodium diet, Supine: Kenner (1-7 days) ..... 2.0-35.0 ng/mL/hr Cord blood [...] developed and its performance characteristics determined by [facility]. It has not been cleared or approved by the [place] Food and Drug Administration. This test was performed in a CLIA certified laboratory and is intended for clinical purposes. Performed By: [facility] [address] [place] [id number] Membership Correspondent: Navneet Simeon MD, PhD CLIA Number: [id number] Performed By: #### L [id number] #### [facility] (BEAKER) [address] [place] [address] TROPONIN Ion 07-11-2024 Troponin I.cardiac [Mass/Vol] 0.01 ng/mL Normal 0.00-0.04 [facility] Comment on above: Performed By: #### L [id number] ####[facility] ([facility])[address] [place] [address] Office Visiton 07-10-2024 Follow-up visit [id number] RohanAby Cristina 1965 F Date Provider Department Center 07/10/2024 [id number]-YVUANVBIJAN VAZQUEZ [facility] Family History Problem Relation Age of Onset Lung cancer Mother No Known Problems Father Lung cancer Sister Family Status - Relation Status Age at Mother Father Sister Level of Service:22150 OR OFFICE/OUTPATIENT ESTABLISHED MOD MDM 30 MIN Reason for Visit and Comments: Coronary Artery Disease [187] Post-Cath [731] Normal [facility] 36on 07-03-2024 36 Post Discharge Call Good morning, I am Ginny Garcia, RN a lead nurse from [facility]. I am calling you to follow up [...] Patient Name Aby Madrigal Date 07/03/24 Normal [facility] Telephoneon 07-03-2024 Telephone [id number] Aby Madrigal 1965 F Date Provider Department Center 07/03/2024 Adela-GINNY GARCIA [facility] Family History Problem Relation Age of Onset Lung cancer Mother No Known Problems Father Lung cancer Sister Family Status - Relation Status Age at Mother Father Sister Reason for Visit and Comments: Hospital Follow-up [832] Normal [facility] 30on 07-01-2024 30 The patient is [...] and maintained or improved Outcome: Progressing Normal [facility] BASIC METABOLIC PANELon 06-22 Anion gap [Moles/Vol] 14 mmol/L Normal 7-20 [facility] Comment on above: Performed By: #### L [id number] #### [facility] (BEAKER) [address] [place] [address] Calcium [Mass/Vol] 8.2 mg/dL Low 8.6-10.3 [facility] Comment on above: Performed By: #### L [id number] #### [facility] ([facility]) [address] [place] [address] Chloride [Moles/Vol] 106 mmol/L Normal 98-107 [facility] Comment on above: Performed By: #### L [id number] #### [facility] ([facility]) [address] [place] [address] CO2 [Moles/Vol] 25 mmol/L Normal 21-31 [facility] Comment on above: Performed By: #### L [id number] #### [facility] ([facility]) [address] [place] [address] Creatinine [Mass/Vol] 0.91 mg/dL Normal 0.60-1.20 [facility] Comment on above: Performed By: #### L [id number] #### [facility] ([facility]) [address] [place] [address] GLOMERULAR FILTRATION RATE ML/MIN/1.73 SQ M.PREDICTED 72.2 mL/min/1.73m*2 Normal >60.0 [facility] Comment on above: Result Comment: [facility]???s estimated glomerular filtration rate (eGFR) will [...] individuals. Performed By: #### L [id number] #### [facility] ([facility]) [address] [place] [address] Glucose [Mass/Vol] 101 mg/dL High 70-100 [facility] Comment on above: Performed By: #### L [id number] #### [facility] (BEAKER) [address] [place] [address] Potassium [Moles/Vol] 3.5 mmol/L Normal 3.5-5.1 [facility] Comment on above: Performed By: #### L [id number] #### [facility] (BEAKER) [address] [place] [address] Sodium [Moles/Vol] 141 mmol/L Normal 136-145 [facility] Comment on above: Performed By: #### L [id number] #### [facility] (BEAKER) [address] [place] [address] Urea nitrogen [Mass/Vol] 13 mg/dL Normal 7-25 [facility] Comment on above: Performed By: #### L [id number] #### [facility] ([facility]) [address] [place] [address] UREA NITROGEN/CREATININE (MASS RATIO) IN SER/PLAS 14.3 Normal [facility] Comment on above: Performed By: #### L [id number] #### [facility] ([facility]) [address] [place] [address] CBCon 07-01-2024 Erythrocyte distribution width (RBC) [Ratio] 15.4 % High 11.5-15.0 [facility] Comment on above: Performed By: #### L [id number] ####[facility] ([facility])[address] [place] [address] ERYTHROCYTE MEAN CORPUSCULAR HEMOGLOBIN CONCENTRATION (G/DL) BY AUTOMATED 32.1 g/dL Normal 32.0-35.0 [facility] Comment on above: Performed By: #### L [id number] ####[facility] ([facility])[address] [place] [address] Hematocrit (Bld) [Volume fraction] 38.6 % Normal 36.0-48.0 [facility] Comment on above: Performed By: #### L [id number] ####[facility] ([facility])[address] [place] [address] Hemoglobin (Bld) [Mass/Vol] 12.4 g/dL Normal 12.0-15.0 [facility] Comment on above: Performed By: #### L [id number] ####[facility] ([facility])[address] [place] [address] MCH (RBC) [Entitic mass] 26.9 pg Low 27.0-33.0 [facility] Comment on above: Performed By: #### L [id number] ####[facility] ([facility])[address] [place] [address] MCV (RBC) [Entitic vol] 83.7 fL Normal 82.0-98.0 [facility] Comment on above: Performed By: #### L [id number] ####[facility] ([facility])[address] [place] [address] PLATELETS (10*3/UL) IN BLOOD AUTOMATED COUNT 238 10*3/uL Normal 150-400 [facility] Comment on above: Performed By: #### L [id number] ####[facility] ([facility])[address] [facility] [place] [address] RBC (Bld) [#/Vol] 4.61 10*6/uL Normal 3.80-5.00 [facility] Comment on above: Performed By: #### L [id number] ####[facility] ([facility])[address] [place] [address] WBC (Bld) [#/Vol] 7.04 10*3/uL Normal 4.00-10.60 [facility] Comment on above: Performed By: #### L [id number] ####[facility] ([facility])[address] [place] [address] LIPID PANELon 07-01-2024 CHOL/HDL 3.8 mg/dL Normal [facility] Comment on above: Performed By: #### L [id number] #### [facility] (BEAKER) [address] [place] [address] Cholesterol [Mass/Vol] 128 mg/dL Normal 120-200 [facility] Comment on above: Performed By: #### L [id number] #### [facility] ([facility]) [address] [place] [address] Magnesium [Mass/Vol] 87 mg/dL Normal 40-149 [facility] Comment on above: Result Comment: TRIG LYCERIDE REFERENCE RANGE: 20 YEARS AND OLDER CARDIOVASCULAR RISK LESS THAN 150 mg/dL LOW RISK 150 TO 199 mg/dL BORDERLINE RISK 200 mg/dL AND GREATER HIGH RISK Performed By: #### L [id number] #### [facility] ([facility]) [address] [place] [address] Magnesium [Mass/Vol] 77 mg/dL Normal 0-160 [facility] Comment on above: Performed By: #### L [id number] #### [facility] ([facility]) [address] [place] [address] Magnesium [Mass/Vol] 34 mg/dL Normal 23-92 [facility] Comment on above: Performed By: #### L [id number] #### [facility] ([facility]) [address] [place] [address] NON HDL CHOL. (LDL+VLDL) 94 Normal [facility] Comment on above: Performed By: #### L [id number] #### [facility] ([facility]) [address] [place] [address] TOTAL VLDL-C 17 mg/dL Normal 0-40 [facility] Comment on above: Performed By: #### L [id number] #### [facility] ([facility]) [address] [facility] [place] [address] MAGNESIUMon 07-01-2024 Magnesium [Mass/Vol] 2.0 mg/dL Normal 1.9-2.7 [facility] Comment on above: Performed By: #### L [id number] ####[facility] ([facility])[address] [place] [address] NURSNOTEon 07-01-2024 NURSNOTE Discharge instructio ns given, reviewed, questions, answered, signed, copy received. Normal [facility] POCT GLUCOSE METER UNSOLICIT ED RESULTSon 07-01-2024 Glucose [Mass/Vol] 124 mg/dL High 70-105 [facility] Comment on above: Order Comment: Waive d Testing in the ED is performed under the ED CLIA certificate #[id number]. Result Comment: [email or web address] Performed By: #### L [id number] #### [facility] (BEAKER) [address] [place] [address] Glucose [Mass/Vol] 106 mg/dL High 70-105 [facility] Comment on above: Order Comment: Waive d Testing in the ED is performed under the ED CLIA certificate #[id number]. Result Comment: [email or web address] Performed By: #### L [id number] #### [facility] ([facility]) [address] [facility] [place] [address] TROPONIN Ion 07-01-2024 Troponin I.cardiac [Mass/Vol] 0.09 ng/mL High 0.00-0.04 [facility] Comment on above: Performed By: #### L [id number] #### [facility] ([facility]) [address] [facility] [place] [address] 30on 06-30-2024 30 The patient is Moderately Stable - Low risk of patient condition declining or worsening The patient's goals for the shift include comfort, rest The clinical goals for the shift include stable vitals, comfort Problem: Pain - Adult Goal: Verbalizes/displays adequate comfort level or baseline comfort level Outcome: Not Progressing Normal [facility] 30 Daily Case Managemen t [...] PT Recommendations: OT Recommendations: New Consults: Normal [facility] 30 The patient is Moderately Stable - Low risk of patient condition declining or worsening The patient's goals for the shift include COMFORT The clinical goals for the shift include VSS Over the shift, the patient did not make progress toward the following goals. Barriers to progression include . Recommendations to address these barriers include . Normal [facility] ANTI-XA (HEPARIN LEVEL)on HEPARIN UNFRACTIONATED (U/ML) IN PPP BY CHROMOGENIC METHOD 0.64 IU/mL Normal 0.3-0.7 [facility] Comment on above: Order Comment: Check anti-Xa level every 6 hours while on heparin infusion, or per protocol. Result Comment: [place] roxaban and Apixaban will interfere with the anti Xa assay used to monitor UFH and LMWH. Performed By: #### L [id number] #### [facility] ([facility]) [address] [place] [address] BASIC METABOLIC PANELon 08 Anion gap [Moles/Vol] 11 mmol/L Normal 7-20 [facility] Comment on above: Performed By: #### L [id number] ####[facility] (BEAKER)[address] [place] [address] Calcium [Mass/Vol] 8.3 mg/dL Low 8.6-10.3 [facility] Comment on above: Performed By: #### L [id number] ####[facility] (BEAKER)[address] [place] [address] Chloride [Moles/Vol] 110 mmol/L High 98-107 [facility] Comment on above: Performed By: #### L [id number] ####[facility] (BEAKER)[address] [place] [address] CO2 [Moles/Vol] 26 mmol/L Normal 21-31 [facility] Comment on above: Performed By: #### L [id number] ####[facility] (BEAKER)[address] [place] [address] Creatinine [Mass/Vol] 0.81 mg/dL Normal 0.60-1.20 [facility] Comment on above: Performed By: #### L [id number] ####[facility] ([facility])[address] [place] [address] GLOMERULAR FILTRATION RATE ML/MIN/1.73 SQ M.PREDICTED 83.1 mL/min/1.73m*2 Normal >60.0 [facility] Comment on above: Result Comment: [facility]???s estimated glomerular filtration rate (eGFR) will [...] of individuals. Performed By: #### L [id number] ####[facility] ([facility])[address] [place] [address] Glucose [Mass/Vol] 110 mg/dL High 70-100 [facility] Comment on above: Performed By: #### L [id number] ####[facility] ([facility])[address] [place] [address] Potassium [Moles/Vol] 3.7 mmol/L Normal 3.5-5.1 [facility] Comment on above: Performed By: #### L [id number] ####[facility] ([facility])[address] [place] [address] Sodium [Moles/Vol] 143 mmol/L Normal 136-145 [facility] Comment on above: Performed By: #### L [id number] ####[facility] ([facility])[address] [place] [address] Urea nitrogen [Mass/Vol] 10 mg/dL Normal 7-25 [facility] Comment on above: Performed By: #### L [id number] ####[facility] ([facility])[address] [place] [address] UREA NITROGEN/CREATININE (MASS RATIO) IN SER/PLAS 12.3 Normal [facility] Comment on above: Performed By: #### L [id number] ####[facility] ([facility])[address] [place] [address] CBCon 06-30-2024 Erythrocyte distribution width (RBC) [Ratio] 15.3 % High 11.5-15.0 [facility] Comment on above: Performed By: #### L [id number] ####[facility] ([facility])[address] [place] [address] ERYTHROCYTE MEAN CORPUSCULAR HEMOGLOBIN CONCENTRATION (G/DL) BY AUTOMATED 31.3 g/dL Low 32.0-35.0 [facility] Comment on above: Performed By: #### L [id number] ####[facility] ([facility])[address] [place] [address] Hematocrit (Bld) [Volume fraction] 36.7 % Normal 36.0-48.0 [facility] Comment on above: Performed By: #### L [id number] ####[facility] ([facility])[address] [place] [address] Hemoglobin (Bld) [Mass/Vol] 11.5 g/dL Low 12.0-15.0 [facility] Comment on above: Performed By: #### L [id number] ####[facility] ([facility])[address] [place] [address] MCH (RBC) [Entitic mass] 26.9 pg Low 27.0-33.0 [facility] Comment on above: Performed By: #### L [id number] ####[facility] ([facility])[address] [place] [address] MCV (RBC) [Entitic vol] 85.7 fL Normal 82.0-98.0 [facility] Comment on above: Performed By: #### L [id number] ####[facility] ([facility])[address] [place] [address] PLATELETS (10*3/UL) IN BLOOD AUTOMATED COUNT 243 10*3/uL Normal 150-400 [facility] Comment on above: Performed By: #### L [id number] ####[facility] ([facility])[address] [place] [address] RBC (Bld) [#/Vol] 4.28 10*6/uL Normal 3.80-5.00 [facility] Comment on above: Performed By: #### L [id number] ####[facility] ([facility])[address] [place] [address] WBC (Bld) [#/Vol] 7.41 10*3/uL Normal 4.00-10.60 [facility] Comment on above: Performed By: #### L [id number] ####[facility] ([facility])[address] [place] [address] CONSULTon 06-30-2024 CONSULT Cardiology Consult Note Reason for Consult: NSTEMI, transfer from [facility] HPI: Aby Madrigal, a 59 y.o. female patient, is transferred from [facility] for continuity of care. Past medical history includes: HTN History of TIA DMII HLD SURESH Overweight Patient reports that 3 days ago, she woke up in the mid of the night with indigestion, and a feeling fullness, but no pressure like chest pain. [facility], where she was found to be [...] Value Ventricular Rate 71 Atrial Rate 71 OR Interval 176 QRS DURATION 92 QT Interval 424 QTC CALCULATION(BAZETT) 460 P De Young 52 R-De Young 19 T Wave De Young 164 Impression Normal sinus rhythm Left ventricular [...] Normal sinu (more content not included)... Normal [facility] HPon 06-30-2024 H&P reviewed. The patient was examined and there are no changes to the H&P. 59 y.o. year old female with a PMHx significant for DM2, hypertension presents a direct mission from [facility] with a chief complaint of [...] proceed. Signed, Yris Oakley MD PGY-4 Service Cleaner Pager: [phone] Normal [facility] POCT GLUCOSE METER UNSOLICIT ED RESULTSon 06-30-2024 Glucose [Mass/Vol] 170 mg/dL High 70-105 [facility] Comment on above: Order Comment: Waive d Testing in the ED is performed under the ED CLIA certificate #[id number]. Result Comment: [email or web address] Performed By: #### L [id number] #### [facility] ([facility]) [address] [place] [address] Glucose [Mass/Vol] 129 mg/dL High 70-105 [facility] Comment on above: Order Comment: Waive d Testing in the ED is performed under the ED CLIA certificate #[id number]. Result Comment: [email or web address] Performed By: #### L [id number] #### [facility] ([employer]) [address] [place] [address] Glucose [Mass/Vol] 167 mg/dL High 70-105 [facility] Comment on above: Order Comment: Waive d Testing in the ED is performed under the ED CLIA certificate #[id number]. Result Comment: [email or web address] Performed By: #### L [id number] #### [facility] ([facility]) [address] [place] [address] TROPONIN Ion 06-30-2024 Troponin I.cardiac [Mass/Vol] 0.07 ng/mL High 0.00-0.04 [facility] Comment on above: Performed By: #### L [id number] #### [facility] ([facility]) [address] [place] [address] Troponin I.cardiac [Mass/Vol] 0.10 ng/mL High 0.00-0.04 [facility] Comment on above: Performed By: #### L [id number] #### [facility] ([facility]) [address] [place] [address] Troponin I.cardiac [Mass/Vol] 0.11 ng/mL Critically high 0.00-0.04 [facility] Comment on above: Result Comment: M-TR OPONIN INITIAL CRITICAL HIGH; RESPUN AND RETESTED Performed By: #### L [id number] ####[facility] ([facility])[address] [place] [address] 30on 06-29-2024 30 The patient is Moderately Stable - Low risk of patient condition declining or worsening The patient's goals for the shift include COMFORT The clinical goals for the shift include VSS Normal [facility] APTTon 06-29-2024 ACTIVATED PARTIAL THROMBOPLASTIN TIME IN PPP BY COAGULATION ASSAY 34.5 Seconds Normal 25.0-35.0 [facility] Comment on above: Order Comment: Basel ine aPTT before initiating heparin infusion. Result Comment: Clin ical significance of the APTT is questionable in the presence of heparin. Performed By: #### L [id number] #### [facility] ([facility]) [address] [place] [address] B-TYPE NATRIURETIC PEPTIDEon 06-29-2024 Natriuretic peptide B (Bld) [Mass/Vol] 222 pg/mL High 0-100 [facility] Comment on above: Performed By: #### L [id number] ####[facility] ([facility])[address] [place] [address] CBC WITH AUTO DIFFERENTIALon 06-29-2024 Basophils (Bld) [#/Vol] 0.05 10*3/uL Normal 0.00-0.20 [facility] Comment on above: Performed By: #### L [id number] ####[facility] ([facility])[address] [place] [address] Basophils/100 WBC (Bld) 0.6 % Normal 0.0-1.0 [facility] Comment on above: Performed By: #### L [id number] ####[facility] (BEAKER)[address] [place] [address] Eosinophils (Bld) [#/Vol] 0.18 10*3/uL Normal 0.00-0.50 [facility] Comment on above: Performed By: #### L [id number] ####[facility] (BEAKER)[address] [place] [address] Eosinophils/100 WBC (Bld) 2.1 % Normal 0.0-6.0 [facility] Comment on above: Performed By: #### L [id number] ####[facility] (BEAKER)[address] [place] [address] Erythrocyte distribution width (RBC) [Ratio] 14.9 % Normal 11.5-15.0 [facility] Comment on above: Performed By: #### L [id number] ####[facility] (BEAKER)[address] [place] [address] ERYTHROCYTE MEAN CORPUSCULAR HEMOGLOBIN CONCENTRATION (G/DL) BY AUTOMATED 32.9 g/dL Normal 32.0-35.0 [facility] Comment on above: Performed By: #### L [id number] ####[facility] (BEAKER)[address] [place] [address] Hematocrit (Bld) [Volume fraction] 35.9 % Low 36.0-48.0 [facility] Comment on above: Performed By: #### L [id number] ####[facility] (BEAKER)[address] [place] [address] Hemoglobin (Bld) [Mass/Vol] 11.8 g/dL Low 12.0-15.0 [facility] Comment on above: Performed By: #### L [id number] ####[facility] (BEAKER)[address] [place] [address] Immature granulocytes (Bld) [#/Vol] 0.03 10*3/uL Normal 0.00-0.20 [facility] Comment on above: Performed By: #### L [id number] ####[facility] (BEAKER)[address] [place] [address] Immature granulocytes/100 WBC (Bld) 0.3 % Normal 0.0-1.0 [facility] Comment on above: Performed By: #### L [id number] ####[facility] (BEAKER)[address] [place] [address] Lymphocytes (Bld) [#/Vol] 2.02 10*3/uL Normal 1.20-4.00 [facility] Comment on above: Performed By: #### L [id number] ####[facility] (BEAKER)[address] [place] [address] Lymphocytes/100 WBC (Bld) 23.5 % Normal 20.0-45.0 [facility] Comment on above: Performed By: #### L [id number] ####[facility] (BEAKER)[address] [place] [address] MCH (RBC) [Entitic mass] 27.2 pg Normal 27.0-33.0 [facility] Comment on above: Performed By: #### L [id number] ####[facility] (BEAKER)[address] [place] [address] MCV (RBC) [Entitic vol] 82.7 fL Normal 82.0-98.0 [facility] Comment on above: Performed By: #### L [id number] ####[facility] (BEAKER)[address] [place] [address] Monocytes (Bld) [#/Vol] 0.56 10*3/uL Normal 0.10-1.00 [facility] Comment on above: Performed By: #### L [id number] ####[facility] (BEAKER)[address] [place] [address] Monocytes/100 WBC (Bld) 6.5 % Normal 5.0-12.0 [facility] Comment on above: Performed By: #### L [id number] ####[facility] ([facility])[address] [place] [address] Neutrophils (Bld) [#/Vol] 5.74 10*3/uL Normal 1.60-7.60 [facility] Comment on above: Performed By: #### L [id number] ####[facility] ([facility])[address] [place] [address] Neutrophils/100 WBC (Bld) 67.0 % Normal 40.0-72.0 [facility] Comment on above: Performed By: #### L [id number] ####[facility] ([facility])[address] [place] [address] NRBC (PER 100 WBCS) BY AUTOMATED COUNT 0.0 % Normal 0 [facility] Comment on above: Performed By: #### L [id number] ####[facility] ([facility])[address] [place] [address] PLATELETS (10*3/UL) IN BLOOD AUTOMATED COUNT 233 10*3/uL Normal 150-400 [facility] Comment on above: Performed By: #### L [id number] ####[facility] ([facility])[address] [place] [address] RBC (Bld) [#/Vol] 4.34 10*6/uL Normal 3.80-5.00 [facility] Comment on above: Performed By: #### L [id number] ####[facility] ([facility])[address] [place] [address] WBC (Bld) [#/Vol] 8.58 10*3/uL Normal 4.00-10.60 [facility] Comment on above: Performed By: #### L [id number] ####[facility] ([facility] [place] [address] COMPREHENSIVE METABOLIC PANE Alec 06-29-2024 Albumin [Mass/Vol] 3.8 g/dL Normal 3.5-5.7 [facility] Comment on above: Performed By: #### L [id number] #### [facility] (BEAKER) [address] [place] [address] ALP [Catalytic activity/Vol] 64 U/L Normal 34-104 [facility] Comment on above: Performed By: #### L [id number] #### [facility] (BEAKER) [address] [place] [address] ALT [Catalytic activity/Vol] 35 U/L Normal 7-52 [facility] Comment on above: Performed By: #### L [id number] #### [facility] (BEAKER) [address] [place] [address] Anion gap [Moles/Vol] 12 mmol/L Normal 7-20 [facility] Comment on above: Performed By: #### L [id number] #### [facility] (BEAKER) [address] [place] [address] AST [Catalytic activity/Vol] 21 U/L Normal 13-39 [facility] Comment on above: Performed By: #### L [id number] #### [facility] (BEAKER) [address] [place] [address] Bilirubin [Mass/Vol] 0.4 mg/dL Normal 0.3-1.0 [facility] Comment on above: Performed By: #### L [id number] #### [facility] (BEAKER) [address] [place] [address] Calcium [Mass/Vol] 8.5 mg/dL Low 8.6-10.3 [facility] Comment on above: Performed By: #### L [id number] #### [facility] (BEAKER) [address] [place] [address] Chloride [Moles/Vol] 112 mmol/L High 98-107 [facility] Comment on above: Performed By: #### L [id number] #### [facility] (BEAKER) [address] [place] [address] CO2 [Moles/Vol] 22 mmol/L Normal 21-31 [facility] Comment on above: Performed By: #### L [id number] #### [facility] ([facility]) [address] [place] [address] Creatinine [Mass/Vol] 0.92 mg/dL Normal 0.60-1.20 [facility] Comment on above: Performed By: #### L [id number] #### [facility] ([facility]) [address] [place] [address] GLOMERULAR FILTRATION RATE ML/MIN/1.73 SQ M.PREDICTED 71.3 mL/min/1.73m*2 Normal >60.0 [facility] Comment on above: Result Comment: [facility]???s estimated glomerular filtration rate (eGFR) will [...] individuals. Performed By: #### L [id number] #### [facility] ([facility]) [address] [place] [address] Glucose [Mass/Vol] 108 mg/dL High 70-100 [facility] Comment on above: Performed By: #### L [id number] #### [facility] ([facility]) [address] [place] [address] Potassium [Moles/Vol] 3.7 mmol/L Normal 3.5-5.1 [facility] Comment on above: Performed By: #### L [id number] #### [facility] ([facility]) [address] [place] [address] Protein [Mass/Vol] 6.1 g/dL Normal 6.0-8.3 [facility] Comment on above: Performed By: #### L [id number] #### [facility] ([facility]) [address] [place] [address] Sodium [Moles/Vol] 142 mmol/L Normal 136-145 [facility] Comment on above: Performed By: #### L [id number] #### [facility] ([facility]) [address] [place] [address] Urea nitrogen [Mass/Vol] 11 mg/dL Normal 7-25 [facility] Comment on above: Performed By: #### L [id number] #### [facility] ([facility]) [address] [place] [address] UREA NITROGEN/CREATININE (MASS RATIO) IN SER/PLAS 12.0 Normal [facility] Comment on above: Performed By: #### L [id number] #### [facility] ([facility]) [address] [place] [address] MAGNESIUMon 06-29-2024 Magnesium [Mass/Vol] 1.7 mg/dL Low 1.9-2.7 [facility] Comment on above: Performed By: #### L [id number] ####[facility] ([facility])[address] [place] [address] PHOSPHORUSon 06-29-2024 Magnesium [Mass/Vol] 2.9 mg/dL Normal 2.5-5.0 [facility] Comment on above: Performed By: #### L [id number] #### [facility] ([facility]) [address] [place] [address] PROTIME-INRon 06-29-2024 INR IN PPP BY COAGULATION ASSAY 0.99 Normal 0.90-1.10 [facility] Comment on above: Result Comment: ACCC [...] RANGE. CHEST 1995;108:[id number]. Performed By: #### L [id number] #### [facility] ([facility]) [address] [place] [address] PROTHROMBIN TIME (PT) IN PPP BY COAGULATION ASSAY 13.1 Seconds Normal 12.3-14.8 [facility] Comment on above: Performed By: #### L [id number] #### [facility] ([facility]) [address] [place] [address] TROPONIN Ion 06-29-2024 Troponin I.cardiac [Mass/Vol] 0.10 ng/mL High 0.00-0.04 [facility] Comment on above: Performed By: #### L [id number] #### [facility] [facility] ([facility] [address] [place] [address] Office Visiton 06-21-2024 Follow-up visit [id number] Aby Madrigal 1965 F Date Provider Department Center 06/21/2024 GOMEZ KENDALL RIAZ [place] Family History Problem Relation Age of Onset Lung cancer Mother No Known Problems Father Lung cancer Sister Family Status - Relation Status Age at Mother Father Sister Level of Service:27344 OR OFFICE/OUTPATIENT ESTABLISHED MOD MDM 30 MIN Normal [facility] Office Visiton 05-26-2024 Follow-up visit [id number] Sanjana Madrigalty S 1965 F Date Provider Department Center 05/26/2024 BIJAN LAWLER RIAZ [place] Family History Problem Relation Age of Onset Lung cancer Mother No Known Problems Father Lung cancer Sister Family Status - Relation Status Age at Mother Father Sister Level of Service:47815 OR OFFICE/OUTPATIENT NEW MODERATE MDM 45 MINUTES Normal [facility] Outside Colonoscopyon 2022 Outside Colonoscopy [id number] 50 [id number] 0CD:127 Normal [facility] Reminderson 11-27-2022 Reminders - From: Na Hayes LPN To: GSN - Clinical; Sent: 11/27/2022 12:46:10 EST Show up: 10/25/2032 07:00:00 EST Subject: colonoscopy recall Due Date/Time: 11/25/2032 07:00:00 EST Reminder/Recall Patient is due for screening colonoscopy 11/25/2032. Normal [facility] Lab Reportson 11-24-2022 Lab Reports [id number] 0CD:127 Normal [facility] Covid-19 PCR ([facility])on 10-24 SARS-CoV-2 (COVID-19) RNA BECK+probe Ql (Unsp spec) Not detected Normal NOT DETECTED [facility] Comment on above: Result Comment: This test is not yet approved or cleared by the [place] FDA. When there are no FDA-approved or cleared tests available, and other criteria are met, FDA can make tests available under an emergency access mechanism called an Emergency Use Authorization (EUA). The EUA for this test is supported by the [place] of Health and Human Service's (HHS's) declaration [...] consistent with SARS-CoV-2. Performed By: #### [facility] #### [facility] Laboratory [address] [place] [address] Dr. Rich Cutler Consent for Procedure/Surger yon 10-07-2022 Consent for Procedure/Surgery [id number] 0CD:127 Normal [facility] Ambulatory Visit Summaryon 1 12-06-2021 [...] : DR KENDRA MORAN . Admission #: [id number] Family : Order #: [id number] CLICK HERE TO VIEW EXAM RADIOLOGY REPORT [...] chronic thrombus visualized Compressibility: Normal Flow: Normal [employer] Manager: Dist/med calf 3.3mm with 0s reflux. Tech Note: Incompetent SFJ and GSV. Patent varicose vein mid/med calf 2.9mm with 0s reflux. Patent varicose vein prox/post calf 3.8mm with 0s reflux. Patent varicose vein dist/med thigh 3.8mm with 2.0s reflux. CONCLUSION: 1. Mild right and [id number] left great saphenous vein venous insufficiency with dilatation 2. Left saphenous popliteal junction reflux 3. Mild left anterior accessory saphenous vein venous insufficiency without dilatation 4. Small bilateral incompetent varicose veins Dictated by: Adelia Lezama MD on 10/02/2022 at 13:36 Approved by: Adelia Lezama MD on 10/02/2022 at 13:[address] [facility] ECHOCARDIO M/2D COMPLETEon 1 11-30-2021 ECHOCARDIO M/2D COMPLETE Patient: ABY MADRIGAL Exam Date: 09/30/2022 : 1965 Gender:F Ordering : DR KENDRA MORAN . Admission #: [id number] Family : Order #: [id number] CLICK HERE TO VIEW EXAM ECHOCARDIOGRAM REPORT [...] M.D. on 09/30/2022 at 18:37 Normal [facility] BNPon 09-24-2022 Natriuretic peptide B (Bld) [Mass/Vol] 501.0 pg/mL Normal <=900.0 [facility] Comment on above: Performed By: #### C VDTB #### [facility] Laboratory [address] [place] [address] Dr. Rich Cutler CBC AUTO DIFFon 09-24-2022 BASO # 0.1 103/ul Normal 0.0-0.1 [facility] Comment on above: Performed By: #### C VDTB #### [facility] Laboratory [address] [place] [address] Dr. Rich Cutler Basophils/100 WBC (Bld) 0.8 % Normal 0.2-2.0 [facility] Comment on above: Performed By: #### C VDTBH #### [facility] Laboratory [address] [place] [address] Dr. Rich Cutler EO # 0.3 103/ul Normal 0.0-0.7 [facility] Comment on above: Performed By: #### C VDTBH #### [facility] Laboratory [address] [place] [address] Dr. Rich Cutler Eosinophils/100 WBC (Bld) 3.4 % Normal 0.9-7.0 [facility] Comment on above: Performed By: #### C VDTBH #### [facility] Laboratory [address] [place] [address] Dr. Rich Cutler Erythrocyte distribution width (RBC) [Ratio] 13.3 % Normal 11.0-15.0 [facility] Comment on above: Performed By: #### C VDTBH #### [facility] Laboratory [address] [place] [address] Dr. Rich Cutler Hematocrit (Bld) [Volume fraction] 40.5 % Normal 36.0-48.0 [facility] Comment on above: Performed By: #### C VDTBH #### [facility] Laboratory [address] [place] [address] Dr. Rich Cutler Hemoglobin (Bld) [Mass/Vol] 13.1 g/dL Normal 12.0-16.0 [facility] Comment on above: Performed By: #### C VDTBH #### [facility] Laboratory [address] [place] [address] Dr. Rich Cutler IG # 0.02 10e3/ul Normal 0.00-0.03 [facility] Comment on above: Performed By: #### C VDTBH #### [facility] Laboratory [address] [place] [address] Dr. Rich Cutler IG % 0.3 % Normal 0.0-0.5 [facility] Comment on above: Performed By: #### C VDTBH #### [facility] [address] [place] [address] Dr. Rich Cutler LYMPH # 2.7 103/ul Normal 1.2-3.8 [facility] Comment on above: Performed By: #### C VDTBH #### [facility] [address] [place] [address] Dr. Rich Cutler Lymphocytes/100 WBC (Bld) 35.4 % Normal 20.5-60.0 [facility] Comment on above: Performed By: #### C VDTBH #### [facility] [address] [place] [address] Dr. Rich Cutler MANUAL DIFF REQ NO Normal [facility] Comment on above: Performed By: #### C VDTBH #### [facility] Laboratory [address] [place] [address] Dr. Rich Cutler MCH (RBC) [Entitic mass] 28.2 pg Normal 26.7-34.0 [facility] Comment on above: Performed By: #### C VDTBH #### [facility] [address] [place] [address] Dr. Rich Cutler MCHC (RBC) [Mass/Vol] 32.3 g/dL Normal 29.9-35.2 [facility] Comment on above: Performed By: #### C VDTBH #### [facility] [address] [place] [address] Dr. Rich Cutler MCV (RBC) [Entitic vol] 87.3 fL Normal 81.0-99.0 [facility] Comment on above: Performed By: #### C VDTBH #### [facility] [address] [place] [address] Dr. Rich Cutler MONO # 0.5 103/ul Normal 0.3-0.8 [facility] Comment on above: Performed By: #### C VDTBH #### [facility] [address] [place] [address] Dr. Rich Cutler Monocytes/100 WBC (Bld) 6.5 % Normal 1.7-12.0 [facility] Comment on above: Performed By: #### C VDTBH #### [facility] [address] [place] [address] Dr. Rich Cutler NEUT # 4.1 103/ul Normal 1.4-6.5 [facility] Comment on above: Performed By: #### C VDTBH #### [facility] [address] [place] [address] Dr. Rich Cutler Neutrophils/100 WBC (Bld) 53.6 % Normal 43.0-75.0 [facility] Comment on above: Performed By: #### C VDTBH #### [facility] [address] [place] [address] Dr. Rich Cutler Platelet mean volume (Bld) [Entitic vol] 10.3 fL Normal 9.5-13.5 [facility] Comment on above: Performed By: #### C VDTBH #### [facility] [address] [place] [address] Dr. Rich Cutler PLT 283 103/ul Normal 150-450 [facility] Comment on above: Performed By: #### C VDTBH #### [facility] [address] [place] [address] Dr. Rich Cutler RBC 4.64 106/ul Normal 4.20-5.40 [facility] Comment on above: Performed By: #### C VDTBH #### [facility] [address] [place] [address] Dr. Rich Cutler WBC 7.6 103/ul Normal 4.0-11.0 [facility] Comment on above: Performed By: #### C VDTBH #### [facility] [address] [place] [address] Dr. Rich Cutler INSULINon 09-24-2022 Insulin 15.1 uIU/mL Normal 2.6-24.9 [facility] Comment on above: Performed By: #### C VDTBH #### [facility] [address] [place] [address] Dr. Rich Cutler PROF 14(COMP METB)on 022 Albumin [Mass/Vol] 3.5 g/dL Normal 3.4-5.0 [facility] Comment on above: Performed By: #### C VDTBH #### [facility] [address] [place] [address] Dr. Rich Cutler Albumin/Globulin [Mass ratio] 1.0 {ratio} Normal [facility] Comment on above: Performed By: #### C VDTBH #### [facility] [address] [place] [address] Dr. Rich Cutler ALP [Catalytic activity/Vol] 91 U/L Normal 46-116 [facility] Comment on above: Performed By: #### C VDTBH #### [facility] [address] [place] [address] Dr. Rich Cutler ALT [Catalytic activity/Vol] 47 U/L Normal 14-59 [facility] Comment on above: Performed By: #### C VDTBH #### [facility] Laboratory [address] [place] [address] [address] Rich Cutler Anion gap [Moles/Vol] 11.7 mmol/L Normal [facility] Comment on above: Performed By: #### C VDTBH #### [facility] [address] [place] [address] [address] Rich Cutler AST [Catalytic activity/Vol] 24 U/L Normal 15-37 [facility] Comment on above: Performed By: #### C VDTBH #### [facility] [address] [place] [address] [address] Rich Cutler Bilirubin [Mass/Vol] 0.2 mg/dL Normal 0.2-1.0 [facility] Comment on above: Performed By: #### C VDTBH #### [facility] [address] [place] [address] Dr. Rich Cutler Calcium [Mass/Vol] 8.9 mg/dL Normal 8.5-10.1 [facility] Comment on above: Performed By: #### C VDTBH #### [facility] [address] [place] [address] Dr. Rich Cutler Chloride [Moles/Vol] 105 mmol/L Normal 98-107 [facility] Comment on above: Performed By: #### C VDTBH #### [facility] [address] [place] [address] Dr. Rich Cutler CO2 [Moles/Vol] 28.1 mmol/L Normal 21.0-32.0 [facility] Comment on above: Performed By: #### C VDTBH #### [facility] [address] [place] [address] Dr. Rich Cutler Creatinine [Mass/Vol] 1.13 mg/dL Critically high 0.55-1.02 [facility] Comment on above: Performed By: #### C VDTBH #### [facility] [address] [place] [address] Dr. Rich Cutler EGFR-AF [place]IZEN [place] 60 mL/min/1.73m2 Normal >=60 [facility] Comment on above: Performed By: #### C VDTBH #### [facility] [address] [place] [address] Dr. Rich Cutler EGFR-NON AF CITIZEN OF [place] 49 mL/min/1.73m2 Critically low >=60 [facility] Comment on above: Performed By: #### C VDTBH #### [facility] [address] [place] [address] Dr. Rich Cutler Globulin (S) [Mass/Vol] 3.5 g/dL Normal [facility] Comment on above: Performed By: #### C VDTBH #### [facility] [address] [place] [address] Dr. Rich Cutler Glucose [Mass/Vol] 119 mg/dL Critically high 74-106 [facility] Comment on above: Performed By: #### C VDTBH #### [facility] [address] [place] [address] Dr. Rich Cutler Potassium [Moles/Vol] 3.8 mmol/L Normal 3.5-5.1 [facility] Comment on above: Performed By: #### C VDTBH #### [facility] [address] [place] [address] Dr. Rich Cutler Protein [Mass/Vol] 7.0 g/dL Normal 6.4-8.2 [facility] Comment on above: Performed By: #### C VDTBH #### [facility] [address] [place] [address] Dr. Rich Cutler Sodium [Moles/Vol] 141 mmol/L Normal 136-145 [facility] Comment on above: Performed By: #### C VDTBH #### [facility] [address] [place] [address] Dr. Rich Cutler Urea nitrogen [Mass/Vol] 16.0 mg/dL Normal 7.0-18.0 [facility] Comment on above: Performed By: #### C VDTBH #### [facility] [address] [place] [address] Dr. Rich Cutler Urea nitrogen/Creatinine [Mass ratio] 14.2 mg/mg Normal [facility] Comment on above: Performed By: #### C VDTBH #### [facility] [address] [place] [address] Dr. Rich Cutler TROPONIN, HIGH SENSITIVITYon 09-24-2022 HSTROP 10.6 pg/mL Normal 4.0-51.3 [facility] Comment on above: Result Comment: CUT- OFF POINTS HAVE BEEN ESTABLISHED BASED ON THE FOURTH UNIVERSAL DEFINITIONS OF MYOCARDIAL INFARCTION. THE UPPER REFERENCE LIMIT (URL) OF TROPONIN, DEFINED THE 99TH PERCENTILE OF cTnI DISTRIBUTION IN A REFERENCE POPULATION, HAS BEEN CONFIRMED THE DECISION THRESHOLD FOR NE DIAGNOSIS. Performed By: #### C VDTBH #### [facility] [address] [place] [address] Dr. Rich Cutler XR CHEST 1 Von [...] [facility] Date: 2022-09-24 04:08 Normal [facility] CBC AUTO DIFFon 09-23-2022 BASO # 0.1 103/ul Normal 0.0-0.1 [facility] Comment on above: Performed By: #### C BC #### [facility] [address] [place] [address] Dr. Rich Cutler Basophils/100 WBC (Bld) 0.8 % Normal 0.2-2.0 [facility] Comment on above: Performed By: #### C BC #### [facility] [address] [place] [address] Dr. Rich Cutler EO # 0.2 103/ul Normal 0.0-0.7 [facility] Comment on above: Performed By: #### C BC #### [facility] [address] [place] [address] Dr. Rich Cutler Eosinophils/100 WBC (Bld) 3.5 % Normal 0.9-7.0 [facility] Comment on above: Performed By: #### C BC #### [facility] [address] [place] [address] Dr. Rcih Cutler Erythrocyte distribution width (RBC) [Ratio] 13.4 % Normal 11.0-15.0 [facility] Comment on above: Performed By: #### C BC #### [facility] [address] [place] [address] Dr. Rich Cutler Hematocrit (Bld) [Volume fraction] 42.3 % Normal 36.0-48.0 [facility] Comment on above: Performed By: #### C BC #### [facility] [address] [place] [address] Dr. Rich Cutler Hemoglobin (Bld) [Mass/Vol] 13.4 g/dL Normal 12.0-16.0 [facility] Comment on above: Performed By: #### C BC #### [facility] [address] [place] [address] Dr. Rich Cutler IG # 0.03 10e3/ul Normal 0.00-0.03 [facility] Comment on above: Performed By: #### C BC #### [facility] [address] [place] [address] Dr. Rich uCtler IG % 0.5 % Normal 0.0-0.5 [facility] Comment on above: Performed By: #### C BC #### [facility] [address] [place] [address] Dr. Rich Cutler LYMPH # 2.9 103/ul Normal 1.2-3.8 [facility] Comment on above: Performed By: #### C BC #### [facility] [address] [place] [address] Dr. Rich Cutler Lymphocytes/100 WBC (Bld) 44.0 % Normal 20.5-60.0 [facility] Comment on above: Performed By: #### C BC #### [facility] [address] [place] [address] Dr. Rich Cutler MANUAL DIFF REQ NO Normal [facility] Comment on above: Performed By: #### C BC #### [facility] [address] [place] [address] Dr. Rich Cutler MCH (RBC) [Entitic mass] 28.4 pg Normal 26.7-34.0 [facility] Comment on above: Performed By: #### C BC #### [facility] [address] [place] [address] Dr. Rich Cutler MCHC (RBC) [Mass/Vol] 31.7 g/dL Normal 29.9-35.2 [facility] Comment on above: Performed By: #### C BC #### [facility] [address] [place] [address] Dr. Rich Cutler MCV (RBC) [Entitic vol] 89.6 fL Normal 81.0-99.0 [facility] Comment on above: Performed By: #### C BC #### [facility] [address] [place] [address] Dr. Rich Cutler MONO # 0.4 103/ul Normal 0.3-0.8 [facility] Comment on above: Performed By: #### C BC #### [facility] [address] [place] [address] Dr. Rich Cutler Monocytes/100 WBC (Bld) 6.6 % Normal 1.7-12.0 [facility] Comment on above: Performed By: #### C BC #### [facility] [address] [place] [address] Dr. Rich Cutler NEUT # 2.9 103/ul Normal 1.4-6.5 [facility] Comment on above: Performed By: #### C BC #### [facility] [address] [place] [address] Dr. Rich Cutler Neutrophils/100 WBC (Bld) 44.6 % Normal 43.0-75.0 [facility] Comment on above: Performed By: #### C BC #### [facility] [address] [address] [address] Rich Cutler Platelet mean volume (Bld) [Entitic vol] 11.0 fL Normal 9.5-13.5 [facility] Comment on above: Performed By: #### C BC #### [facility] [address] [place] [address] Dr. Rich Cutler PLT 272 103/ul Normal 150-450 [facility] Comment on above: Performed By: #### C BC #### [facility] [address] [address] [address] Rich Cutler RBC 4.72 106/ul Normal 4.20-5.40 [facility] Comment on above: Performed By: #### C BC #### [facility] [address] [place] [address] Dr. Rich Cutler WBC 6.5 103/ul Normal 4.0-11.0 [facility] Comment on above: Performed By: #### C BC #### [facility] [address] [place] [address] Dr. Rich Cutler FREE THYROXINE INDEX T7on FTI 2.16 Normal 1.30-4.50 [facility] Comment on above: Performed By: #### L IPID, TSH, T7, CMP #### [facility] [address] [place] [address] Dr. Rich Cutler T3U 30.0 % Normal 30.0-39.0 [facility] Comment on above: Performed By: #### L IPID, TSH, T7, CMP #### [facility] [address] [place] [address] Dr. Rich Cutler T4 [Mass/Vol] 7.20 ug/dL Normal 4.80-13.90 [facility] Comment on above: Performed By: #### L IPID, TSH, T7, CMP #### [facility] [address] [place] [address] Dr. Rich Cutler GLYCOHEMOGLOBIN A1Con 2021 ADA RECOMMENDATION SEE BELOW Normal [facility] Comment on above: Result Comment: ADA RECOMMENDED LIMIT 4.0 - 6.0 ADA THERAPEUTIC TARGET < 7.0 ACTION SUGGESTED > 7.0 Performed By: #### A 1C #### [facility] [address] [address] [address] Rich Cutler Glucose [Mass/Vol] 128 mg/dL Normal [facility] Comment on above: Performed By: #### A 1C #### [facility] [address] [address] [address] Rich Cutler HbA1c (Bld) [Mass fraction] 6.1 % Normal 4.5-6.2 [facility] Comment on above: Performed By: #### A 1C #### [facility] [address] [place] [address] Dr. Rich Cutler IRONon 09-23-2022 Iron [Mass/Vol] 64.0 ug/dL Normal 50.0-170.0 [facility] Comment on above: Performed By: #### C VDTB #### [facility] [address] [place] [address] Dr. Rich Cutler LIPID PROFILEon 09-23-2022 CHOL-HDL RATIO NORM SEE BELOW Normal [facility] Comment on above: Result Comment: 3.3 - 4.4 LOW RISK 4.4 - 7.1 AVERAGE RISK 7.1 - 11.0 MODERATE RISK >11.0 HIGH RISK Performed By: #### L IPID, TSH, T7, CMP #### [facility] [address] [place] [address] Dr. Rich Cutler Cholesterol [Mass/Vol] 237 mg/dL Critically high <=200 [facility] Comment on above: Performed By: #### L IPID, TSH, T7, CMP #### [facility] [address] [address] [address] Rich Cutler Cholesterol in HDL [Mass/Vol] 44 mg/dL Normal 40-60 [facility] Comment on above: Performed By: #### L IPID, TSH, T7, CMP #### [facility] [address] [address] [address] Rich Cutler Cholesterol in LDL [Mass/Vol] 172.2 mg/dL Normal [facility] Comment on above: Performed By: #### L IPID, TSH, T7, CMP #### [facility] [address] [address] [address] Rich Cutler Cholesterol.total/C holesterol in HDL [Mass ratio] 5.4 {ratio} Normal [facility] Comment on above: Performed By: #### L IPID, TSH, T7, CMP #### [facility] [address] [address] [address] Rich Cutler HDL NORMAL > or = 60 mg/dl - LO W CARDIOVASCULAR RISK <40 mg/dl - HIGH CARDIOVASCULAR RISK Normal [facility] Comment on above: Performed By: #### L IPID, TSH, T7, CMP #### [facility] [address] [address] [address] Rich Cutler LDL CALC NORMAL SEE BELOW Normal The [facility] Comment on above: Result Comment: <100 mg/dl OPTIMAL 100 - 129 mg/dl NEAR OR ABOVE OPTIMAL 130 - 159 mg/dl BORDERLINE HIGH 160 - 189 mg/dl HIGH >190 mg/dl VERY HIGH Performed By: #### L IPID, TSH, T7, CMP #### [facility] [address] [address] [address] Rich Cutler Triglyceride [Mass/Vol] 104 mg/dL Normal <=150 [facility] Comment on above: Performed By: #### L IPID, TSH, T7, CMP #### [facility] [address] [address] [address] Rich Cutler VLDL CALC 20.8 mg/dL Normal [facility] Comment on above: Performed By: #### L IPID, TSH, T7, CMP #### [facility] [address] [address] [address] Rich Cutler PROF 14(COMP METB)on 022 Albumin [Mass/Vol] 3.5 g/dL Normal 3.4-5.0 [facility] Comment on above: Performed By: #### L IPID, TSH, T7, CMP #### [facility] [address] [address] [address] Rich Cutler Albumin/Globulin [Mass ratio] 0.9 {ratio} Normal [facility] Comment on above: Performed By: #### L IPID, TSH, T7, CMP #### [facility] [address] [place] [address] Dr. Rich Cutler ALP [Catalytic activity/Vol] 93 U/L Normal 46-116 [facility] Comment on above: Performed By: #### L IPID, TSH, T7, CMP #### [facility] [address] [place] [address] Dr. Rich Cutler ALT [Catalytic activity/Vol] 44 U/L Normal 14-59 [facility] Comment on above: Performed By: #### L IPID, TSH, T7, CMP #### [facility] [address] [place] [address] Dr. Rich Cutler Anion gap [Moles/Vol] 8.5 mmol/L Normal [facility] Comment on above: Performed By: #### L IPID, TSH, T7, CMP #### [facility] [address] [place] [address] Dr. Rich Cutler AST [Catalytic activity/Vol] 26 U/L Normal 15-37 [facility] Comment on above: Performed By: #### L IPID, TSH, T7, CMP #### [facility] [address] [place] [address] Dr. Rich Cutler Bilirubin [Mass/Vol] 0.3 mg/dL Normal 0.2-1.0 [facility] Comment on above: Performed By: #### L IPID, TSH, T7, CMP #### [facility] [address] [place] [address] Dr. Rich Cutler Calcium [Mass/Vol] 9.0 mg/dL Normal 8.5-10.1 [facility] Comment on above: Performed By: #### L IPID, TSH, T7, CMP #### [facility] [address] [place] [address] Dr. Rich Cutler Chloride [Moles/Vol] 106 mmol/L Normal 98-107 [facility] Comment on above: Performed By: #### L IPID, TSH, T7, CMP #### [facility] [address] [address] [address] Rich Cutler CO2 [Moles/Vol] 31.0 mmol/L Normal 21.0-32.0 [facility] Comment on above: Performed By: #### L IPID, TSH, T7, CMP #### [facility] [address] [address] [address] Rich Cutler Creatinine [Mass/Vol] 1.11 mg/dL Critically high 0.55-1.02 [facility] Comment on above: Performed By: #### L IPID, TSH, T7, CMP #### [facility] [address] [address] [address] Rich Cutler EGFR-AF CITIZEN [place] >60 Normal >=60 [facility] Comment on above: Performed By: #### L IPID, TSH, T7, CMP #### [facility] [address] [place] [address] Dr. Rich Cutler EGFR-NON AF CITIZEN OF [place] 50 mL/min/1.73m2 Critically low >=60 [facility] Comment on above: Performed By: #### L IPID, TSH, T7, CMP #### [facility] [address] [address] [address] Rich Cutler Globulin (S) [Mass/Vol] 3.7 g/dL Normal [facility] Comment on above: Performed By: #### L IPID, TSH, T7, CMP #### [facility] [address] [address] [address] Rich Cutler Glucose [Mass/Vol] 121 mg/dL Critically high 74-106 [facility] Comment on above: Performed By: #### L IPID, TSH, T7, CMP #### [facility] [address] [address] [address] Rich Cutler Potassium [Moles/Vol] 4.5 mmol/L Normal 3.5-5.1 [facility] Comment on above: Performed By: #### L IPID, TSH, T7, CMP #### [facility] [address] [address] [address] Rich Cutler Protein [Mass/Vol] 7.2 g/dL Normal 6.4-8.2 [facility] Comment on above: Performed By: #### L IPID, TSH, T7, CMP #### [facility] [address] [address] [address] Rich Cutler Sodium [Moles/Vol] 141 mmol/L Normal 136-145 [facility] Comment on above: Performed By: #### L IPID, TSH, T7, CMP #### [facility] [address] [address] [address] Rich Cutler Urea nitrogen [Mass/Vol] 16.0 mg/dL Normal 7.0-18.0 [facility] Comment on above: Performed By: #### L IPID, TSH, T7, CMP #### [facility] [address] [place] [address] Dr. Rich Cutler Urea nitrogen/Creatinine [Mass ratio] 14.4 mg/mg Normal [facility] Comment on above: Performed By: #### L IPID, TSH, T7, CMP #### [facility] [address] [address] [address] Rich Cutler TSHon 09-23-2022 TSH 3.915 uIU/mL Critically high 0.358-3.740 [facility] Comment on above: Performed By: #### L IPID, TSH, T7, CMP #### [facility] [address] [place] [address] Dr. Rich Cutler Physician Referralon 022 Physician Referral [phone] [id number] Normal [facility] Lipid Panelon 10-07-2021 Cholesterol [Mass/Vol] 205 mg/dL High 140-200 [facility] Comment on above: Result Comment: Chol less than 200 mg/dl low risk Chol 201-239 mg/dl borderline risk Chol 240 mg/dl and greater high risk Performed By: #### L IPID, [id number], TSH3 wRFLX #### [facility] [address] Cholesterol in HDL [Mass/Vol] 25 mg/dL Low 35-85 [facility] Comment on above: Result Comment: HDL CHOL ATP-III CLASSIFICATION Cardiovascular Risk HDL > or equal to 60 mg/dL LOW HDL < 40 mg/dL HIGH Performed By: #### L IPID, [id number], TSH3 wRFLX #### [facility] [address] Cholesterol.total/C holesterol in HDL [Mass ratio] 8.2 {ratio} Normal <5.0 [facility] Comment on above: Performed By: #### L IPID, [id number], TSH3 wRFLX #### [facility] [address] LDL Cholesterol,Calcula coby 160 mg/dL High 0-100 [facility] Comment on above: Result Comment: LDL ATP III CLASSIFICATION LDL less than 100 mg/dL Optimal LDL 100-129 mg/dL Near or above optimal LDL 130-159 mg/dL Borderline high LDL 160-189 mg/dL High LDL greater than 189 mg/dL Very high Performed By: #### L IPID, [id number], TSH3 wRFLX #### [facility] [address] Triglyceride w/Reflex 100 mg/dL Normal 35-149 [facility] Comment on above: Result Comment: TRIG ATP III CLASSIFICATION TRIG less than 150 mg/dL Normal TRIG 150-199 mg/dL Borderline high TRIG 200-500 mg/dL High TRIG greater than 500 mg/dL Very high Standard traceable to the Center for Disease Conrtrol and Prevention (CDC) test method. Performed By: #### L IPID, [id number], TSH3 wRFLX #### [facility] [address] [id number] [facility] VLDL CHOLESTEROL 20 mg/dL Normal [facility] Comment on above: Performed By: #### L IPID, [id number], TSH3 wRFLX #### [facility] [address] [id number] [facility] Thyroid Stim Hormone w/Rflxo n 10-07-2021 Thyroid Stim Hormone w/Rflx 3.27 u[iU]/mL Normal 0.45-5.33 [facility] Comment on above: Performed By: #### L IPID, [id number], TSH3 wRFLX #### [facility] [address] [id number] [facility] Vitamin D 25 Hydroxy Totalon 10-07-2021 Vitamin D 25 Hydroxy Total 26.5 ng/mL Low 30-100 [facility] Comment on above: Result Comment: JACKELINE MIN D STATUS 25(OH)VITAMIN D RANGE (ng/mL) Deficient <20 Insufficient 20 to <30 Sufficient 30 to 100 Reference: Lanny MF,Gino NC, Dyan VALENZUELA, et al. Evaluation,treatment, and prevention of vitamin D deficiency; an Endocrine Society clinical practice guideline. JCEM. 2010; 96(7):1911-30. PERFORMED BY: [place] [address] PATHOLOGIST PIPE SUPERVISOR SILVESTRE SCHULER M.D. Performed By: #### L IPID, [id number], TSH3 wRFLX #### [address] [id number] [facility] Vital Signs Date Time Vital Sign Value Performing Clinician Deidre gagnon 10-06-2022 15:36-0500 Blood Pressure Location Umm LANDON [facility] [place] 10-06-2022 15:36-0500 Diastolic blood pressure 86 mm[Hg] Umm LANDON [facility] [place] 10-06-2022 15:36-0500 Heart rate 72 /min Umm JACQUESL [facility] [place] 10-06-2022 15:36-0500 Respiratory rate 16 /min Umm JACQUESL [facility] [place] 10-06-2022 15:36-0500 Systolic blood pressure 126 mm[Hg] Umm LANDON [facility] [place] Encounters Encounter Date Encounter Type Care Provider Facility Start: 10-03-2024 End: 10-03-2024 [facility] Start: 09-04-2024 End: 09-04-2024 ambulatory [facility] Start: 08-29-2024 End: 08-29-2024 ambulatory [facility] Start: 08-04-2024 End: 08-04-2024 ambulatory [facility] Start: 07-20-2024 ambulatory [facility] Start: 07-18-2024 ambulatory [facility] Start: 07-18-2024 End: 07-18-2024 Emergency department patient [facility] Start: 07-18-2024 End: 07-18-2024 ambulatory [facility] Start: 07-11-2024 Evaluation and manag ement of inpatient [facility] Start: 07-11-2024 Emergency department [facility] Start: 07-11-2024 End: 07-12-2024 Evaluation and management of inpatient TAO Dugan [facility] Start: 07-10-2024 End: 07-10-2024 ambulatory [facility] Start: 06-30-2024 Evaluation and manag ement of inpatient [facility] Start: 06-30-2024 Evaluation and manag ement of inpatient [facility] Start: 06-29-2024 End: 07-01-2024 Evaluation and management of inpatient KENDRA [facility] Start: 06-21-2024 End: 06-21-2024 ambulatory [facility] Start: 05-26-2024 End: 05-26-2024 ambulatory [facility] Start: 11-26-2022 Encounter for preprocedural laboratory examination DR UMM LANDON . [facility] Start: 11-25-2022 End: 11-26-2022 ambulatory Umm LANDON Facility:CD:[id number] Start: 11-20-2022 End: 11-21-[address] UMM LANDON . Facility:[facility] Start: 11-20-2022 End: 11-21-2022 Encounter for preprocedural laboratory examination DR UMM LANDON . Facility: Start: 10-06-2022 End: 10-07-2022 ambulatory Umm LANDON Facility: [place] Start: 10-06-2022 End: 10-06-2022 Patient encounter procedure Umm LANDON [facility] Start: 10-02-2022 End: 10-03-[address] KENDRA MORAN . Facility:[facility] Start: 09-30-2022 End: 10-01-[address] KENDRA MORAN . Facility:[facility] Start: 09-28-2022 Encounter for genera l adult medical examination without abnormal findings DR KENDRA MORAN . [facility] Start: 09-24-2022 End: 09-24-2022 ambulatory [...] mRNA BNT-162b2 vax Umm NILL [facility] [place] 03-11-2021 SARS-CoV-2 (COVID-19 ) mRNA BNT-162b2 doris LANDON [facility] [place] Payers Date Payer Category Payer Medicaid [id number] 1965 Unknown [id number] 2.16.8 [id number] 1965 Unknown [id number] 2.16.8 [id number] 1965 Unknown [id number] 2.16.84 [id number] 1965 Unknown [id number] 2.16.84 [id number] 1965 Unknown [id number] 2.16.84 [id number] 1965 Unknown [id number] 2.16.84 [id number] 1965 Unknown [id number] 2.16.84 [id number] 1965 Unknown [id number] 2.16.84 [id number] 1965 Unknown [id number] 2.16.84 [id number] 1960 Self-pay [id number] 1960 Unknown [id number] Social History Date Type Detail Facility Start: 10-06-2022 Tobacco smoking status Ex-smoker (fi nding) [facility] [place] Tobacco smoking status Never [facility] [place] Sex Assigned At Female [facility] Functional Status Date Assessment Result Facility 10-06-2022 Functional Status N/A [facility] [place] Clinical Notes 10-11-2022 to 10-03-2024 Note Date [...] metoprolol - CT A/P Jun 2019 in [place], [place] performed for abd pain, incidentally detected [...] 25 mg by (more content not included)... [facility] 09[facility]04[facility]2024 Note [place] Cardiology - [facility] Subjective Aby Madrigal is a 59 y.o. year old female patient being seen for follow up [facility] in Jun 2024 for hypotension. [...] infarction) (CMS/HCC) Hypokalemia Coronary artery disease involving [place] coronary artery of [place] heart without angina pectoris Depression, major, severe [...] and V6. She was then admitted to [facility] on 07/11/2024 with NSTEMI. She [...] and Affect: M (more content not included)... [facility] 07-20-2024 Note Attestation signed by Richa [...] Age: 59 y.o. : 1965 Account No.: [id number] Referring physician: Dr. Jarocho Saldaña Chief complaint: RML nodule HPI Aby Madrigal is a 59 y.o. female with hypertension, CAD status post PCI recently in June 2024,, cigarette smoking who is presenting to IP clinic via telemedicine as a new patient after being referred by Dr. Jarocho Saldaña. Patient reports recent admission to [facility] for hypertensive emergency. This prompted a CT of the chest which was positive for right middle lobe nodule. She then underwent PCI here at [facility] in June. She is currently [...] file. CTA chest 04/21/2024 at [facility]: Right middle lobe approximately 1 cm spiculated nodule appreciated Subsequent PET CT 2024 at [facility]: Right middle lobe nodule is faintly [...] alcohol. She reports (more content not included)... [facility] 07-18-2024 Note REASON FOR VISIT + [...] metoprolol - CT A/P Jun 2019 in [place], [place] performed for abd pain, incidentally detected [...] History: Diagnosis Date Abnormal ECG Diabetes mellitus (CMS/[facility]) Hyperlipidemia Hypertension Obstructive sleep apnea Panic attacks Stroke (CMS/[facility]) Past Surgical History: Procedure Laterality [...] Rfl: carvedilol (C (more content not included)... 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 Resides at home alone. Discharge plan is home. [facility] 07-18-2024 Note Patient sent to ED f or hypotension and dizziness/lightheadedness [facility] 07-12-2024 Note Hospital Medicine Discharge Summary Final Discharge Diagnosis: NSTEMI Admission Diagnosis: Hypokalemia [E87.6] NSTEMI (non-ST elevated myocardial infarction) ([facility]) [I21.4] Hypertensive urgency [I16.0] Adenoma of left adrenal gland [D35.02] Resistant hypertension [I1A.0] Atherosclerosis of [place] coronary artery of [place] heart without angina pectoris [I25.10] Coronary artery disease involving [place] coronary artery of [place] heart with unstable angina pectoris ([facility]) [I25.110] Type 2 diabetes mellitus without complication, without long-term current use of insulin ([facility]) [E11.9] Hospital course: 59yoF with CAD s/p LAD SARKIS 11 days ago who was admitted to [facility] on 07/11 for chest pain. patient initially presented to [facility] for uncomfortable feeling in her chest and was found to have elevated troponins and new ischemic changes on EKG. Infusion and cardiology was consulted transferred to [facility] for further evaluation. Initially the patient had blood pressures up to 192/65 for which home medications were restarted. [facility]ins [facility] were negative and there were no [...] CENTER 07/20/2024 1:00 PM Richa Viramontes MD [facility] 09/05/2024 1:00 PM Bijan Licea MD [facility] Your medication list START taking these medications [...] Your Medications These medications were sent to [facility]/pharmacy #[id number] [address] isosorbide mononitrate ER 60 mg 24 hr [...] activity In process (more content not included)... [facility] 07-11-2024 Note 07/11/24 1817 Financial Resource [...] than 3 How often do you attend rastafarian or cheondoism services? Never Do you belong to any clubs or organizations such as rastafarian groups, unions, fraternal or athletic groups, or [...] In the past 12 months has the [employer], gas, oil, or water [employer] threatened to shut off services in your home? 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 Source grove worker Referral Reason Psychosocial assessment Patient Information Primary Caregiver Self Accompanied by/Relationship Daughter (Rosita); Dzjzuana-kh-sht (Yesy) Activities of Daily Living Assistive Device Not applicable Living Arrangement (Current/Prior to Hospitalization) Private residence (Lives at home by herself) Ambulation Independent Dressing Independent Feeding Independent Behavior Oriented (A&Ox4) Communication Can write;Talks;Understands speaking;Understands Bulgarian;Reads Income Information Income Source Unemployed (receives survivor benefits) Discharge Planning Support Systems Children;Family members (daughter, iqnrxbre-to-evc, son) Type of Residence Private residence Will patient need Precert for Post Acute needs? No Patient's goal for discharge Home Does the patient need discharge transport arranged? No Completed social work assessment and SDoH screening. Patient was A&Ox4 at this time. Patient's daughter, Rosita, and patient's mmncfwyk-fh-oro, Yesy, were currently present at bedside. Patient reported that she lives at home by herself and she identified her support system as her daughter, Rosita, her sytwuowq-mo-awb, Yesy, and her son, Elie. Patient endorsed [...] any alcohol consumption or recreational drug use. [facility] 07-11-2024 Note Hospital Medicine History and Physical 07/11/2024 12:19 PM THE HOSPITALIST TEAM PREFERS TO USE from[employer]to[employer] FOR COMMUNICATION 7AM-7PM. IF I DO NOT RESPOND WITHIN 15 MINUTES, PLEASE PAGE ME/CALL THROUGH THE ASSISTANT RESEARCH SCIENTIST. FROM 7PM-7AM, PLEASE PAGE [phone](COVR) Chief Complaint Chief Complaint Patient presents with [...] s/p stent placement 11 days ago at [facility] presented to ER as a transfer from [facility] for NSTEMI. Patient states that last night [...] Noted Hypokalemia 07/11/2024 Coronary artery disease involving [place] coronary artery of [place] heart with unstable angina pectoris ([facility]) 07/11/2024 Anxiety 06/30/2024 Type 2 diabetes mellitus without complication, without long-term current use of insulin ([facility]) 06/30/2024 Chest pain 06/30/2024 Elevated troponin 06/30/2024 Hypertensive urgency 06/30/2024 Hypomagnesemia 06/30/2024 QURESHI (dyspnea on exertion) 05/26/2024 Atherosclerosis of [place] coronary artery of [place] heart without angina pectoris 05/26/2024 Hyperlipidemia 05/26/2024 Murmur, heart 05/26/2024 Sepsis ([facility]) 07/14/2019 BV (bacterial vaginosis) 10/18/2017 GERD (gastroesophageal reflux disease) 10/18/2017 Essential hypertension 10/18/2017 TIA (transient ischemic attack) 10/18/2017 NSTEMI (non-ST elevated myocardial infarction) ([facility]) 06/29/2024 Assessment and Plan NSTEMI [...] for GI prophylaxis (more content not included)... [facility] 07-10-2024 Note [place] [facility] Note Reason for cardiology [...] Take 1 tablet (more content not included)... [facility] 07-01-2024 Note Hospital Medicine Discharge Summary [...] hypertension, IBS presents a direct mission from [facility] with a chief complaint of [...] seen on her EKG. She went to [facility] for the symptoms. Labs were [...] on a heparin drip and transferred to [facility] for likely cardiac cath. # [...] - Continue metformin. Dear Dr. Lidia MD, [facility] is advised to follow up with you within 1-2 weeks. Items to follow up in ambulatory setting: None Follow-up with: Cardiology and Nephrology Scheduled appointments: Future Appointments Date Time Provider Department Center 07/10/2024 2:20 PM Bijan [facility] Your medication list START taking [...] Your Medications These medications were sent to [facility]/pharmacy #[id number] [place], [place] - [address] [address] carvedilol 25 mg tablet cloNIDine 0.1 mg [...] days Lab Units (more content not included)... [facility] 07-01-2024 Note [facility] CARDIOLOGY INPAT IENT PROGRESS NOTE Reason for follow up: NSTEMI Subjective Aby Madrigal, a 59 y.o. female patient, is transferred from [facility] for continuity of care. Patient reports that 3 days ago, she woke up in the mid of the night with indigestion, and a feeling fullness, but no pressure like chest pain. [facility] presented to [facility], where she was found to be [...] 0.56 06/29/2024 E (more content not included)... [facility] 06-30-2024 Note Patient: Aby antony Procedure Information Date/Time: 06/30/24 1600 Procedure: Coronary angiography (Bilateral) Location: [facility] CONTACT LENS FLASHING PUNCHER 3 / [facility] (Cath) Providers: Brunilda Cuellar MD [...] Plan discussed with attending. Additional Equipment Requests [facility] 06-30-2024 Note 06/30/24 1446 Referral Data Referral Source grove worker Referral Reason Follow up;Information Patient Information Primary Caregiver Self Accompanied by/Relationship daughters at bedside Activities of Daily Living Assistive Device Not applicable Living Arrangement (Current/Prior to Hospitalization) Private residence (three to four stairs) Ambulation Independent Dressing Independent Feeding Independent Behavior Oriented Communication Talks;Understands speaking;Understands Bulgarian Discharge Planning Support Systems Children (daughters will [...] questions for social work at this time. [facility] 06-30-2024 Note 06/30/24 1431 Admission Assessment [...] to send link and activate MyChart? No [facility] 06-30-2024 Note Case was discussed w ith the SALVADOR on 06/29/2024. I agree with the history, physical, assessment, and plan of care. I discussed the findings and therapeutic plan. I agree with the documentation, except for any updates below. Maurice Nogueira MD [facility] 06-30-2024 Note Hospital Medicine History and Physical 06/30/2024 1:15 AM THE HOSPITALIST TEAM PREFERS TO USE [employer] CH[employer] FOR COMMUNICATION 7AM-7PM. IF I DO NOT RESPOND WITHIN 15 MINUTES, PLEASE PAGE ME/CALL THROUGH THE ASSISTANT RESEARCH SCIENTIST. FROM 7PM-7AM, PLEASE PAGE [phone](COVR) Chief Complaint Direct admission from [facility] with CP History of Present Illness Aby Madrigal is an 59 y.o. female who came from home with past medical history of anxiety, DM2, hypertension, IBS presents a direct mission from [facility] with a chief complaint of [...] seen on her EKG. She went to [facility] for the symptoms. Labs were [...] on a heparin drip and transferred to [facility] for likely cardiac cath. Review [...] complication, without long-term current use of insulin ([facility]) 06/30/2024 Chest pain 06/30/2024 Elevated troponin 06/30/2024 Hypertensive urgency 06/30/2024 QURESHI (dyspnea on exertion) 05/26/2024 Atherosclerosis of [place] coronary artery of [place] heart without angina pectoris 05/26/2024 Hyperlipidemia 05/26/2024 Murmur, heart 05/26/2024 Sepsis ([facility]) 07/14/2019 BV (bacterial vaginosis) 10/18/2017 GERD (gastroesophageal reflux disease) 10/18/2017 Essential hypertension 10/18/2017 TIA (transient ischemic attack) 10/18/2017 Assessment and Plan Aby Madrigal is an 59 y.o. female who came from home with past medical history of anxiety, DM2, hypertension, IBS presents a direct mission from [facility] with a chief complaint of [...] dysfunction on echoc (more content not included)... [facility] 06-21-2024 Note [place] Cardiology - [facility] Subjective Aby Madrigal is a 59 y.o. year old female patient being seen for follow up [facility] ED per Dr. Moran. She has [...] attack) QURESHI (dyspnea on exertion) Atherosclerosis of [place] coronary artery of [place] heart without angina pectoris Hyperlipidemia Murmur, [...] Judgment: Judgment no (more content not included)... [facility] 05-26-2024 Note [facility] Note Reason for cardiology [...] PSYCH: appropriate mood, (more content not included)... [facility] 11-25-2022 Note OPERATIVE NOTE OPERATION DATE: [...] 10 years. CC: Kendra Moran M.D. [facility] 10-11-2022 Note Chief Complaint consultation [...] 1 tab(s), Oral, (more content not included)... [facility] Comment on above: Result Comment: Elec tronically Signed By: DIPESH BUCKNER, Umm Hogan\Date and Time Signed: 10/11/22 11:01 EST Evaluation + Plan note No data available for this section General Surgery [facility] Discharge instructions No data available for this section General Surgery [place] [facility] note No data available for this section General Surgery [place] Summary Purpose Family History No Family History Records FoundNo Family History Records FoundNo Family History Records FoundNo Family History Records Found Advance Directives No Advanced Directives Records FoundNo Advanced Directives Records FoundNo Advanced Directives Records FoundNo Advanced Directives Records Found Additional Source Comments INFORMATION SOURCE (unrecogn ized section and content) DATE CREATED AUTHOR 12/17/2021 [facility] DATE CREATED AUTHOR AUTHOR'S ORGANIZ ATION 12/16/2022 [facility] DATE CREATED AUTHOR AUTHOR'S ORGANIZ ATION 03/26/2023 [facility] DATE CREATED AUTHOR AUTHOR'S ORGANIZ ATION 10/15/2024 [facility] Patient Care team informatio n (unrecognized section and content) Personnel Name: Kendra Moran MD Address: Address: [address] [place] [address] Personnel Name: Kendra Moran MD Address: Address: [address] [place] [address] FOR RECORDS PERTAINING TO PATIENTS WHO ARE [...] BE BASED ON THE PRIMARY CLINICAL RECORDS. [facility] [employer] [facility]. provides no warranty or guarantee of the accuracy or completeness of information in this document.
--- NOTE | 2024-11-15 22:10 | ECG_ITS ---
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
--- NOTE | 2024-11-15 22:10 | XR_ITS ---
The [address] [address] Patient Name: MILAN RASMUSSEN MRN: [id number] date: 1965 Sex: F Assigned Patient Location: ER Current Patient Location: ER Accession/Order Number: [id number] Exam Date: 11/15/2024 22:18 Report Date: 11/15/2024 22:54 At the request of: CHEKO HOSKINS Procedure: XR chest 1V SINGLE VIEW CHEST: 11/15/2024 10:18 PM EST CLINICAL HISTORY:chest [place] COMPARISONS: Portable chest 11/12/2024 TECHNIQUE: Single frontal view of the chest, utilizing portable technique. Portable radiography should be considered a technically compromised study. Strongly consider dedicated PA and lateral chest radiographs, as clinically indicated. FINDINGS: LINES AND TUBES: Cardiac monitoring leads and wires overlie the patient. CARDIAC SILHOUETTE: Within normal limits. MEDIASTINAL AND HILAR CONTOUR: Within normal limits. PULMONARY PARENCHYMA AND PLEURA: No consolidation, edema, effusion, or pneumothorax. OSSEOUS STRUCTURES:Nothing significant. OTHER COMMENTS:None. XR/XR chest 1V IMPRESSION: Stable chest, with no acute radiographic findings. This report was generated with voice recognition software. Effort has been made to ensure accuracy of this report, however, occasional wording errors may persist. Please contact our office with any questions. Electronically authenticated by: SAE CM Date: 11/15/2024 22:54
--- NOTE | 2024-11-15 22:19 | ED.GENADUL1 ---
HPI HPI - General Adult General Chief complaint: Chest Pain Stated complaint: cp, shoulder pain Time Seen by Provider: 11/15/24 22:00 Source: patient Mode of arrival: walk-in Limitations: no limitations History of Present Illness HPI narrative: Pt developed left shoulder pain deep into the joint tonight around 9pm. She was admitted to [facility] on 11/12/24 for evaluation of chest pain after her troponins were noted to be slightly elevated. Per review of Dr Murillo's and Dr Baron's notes, it appeared it was unclear if the pt's troponin elevation was due to HTN or CAD. She was discharged home on 11/13/24 and I felt great all day . She admitted to increased activity since being discharged, especially yesterday and today - I kind of overdid it , she told me. She denies any chest pain, shortness of breath, leg swelling or back pain. She has GERD and admits to some reflux symptoms today. She s normally on Protonix but her insurance switched her to Nexium, which she took around 8pm tonight without much change. Related Data Home Medications ?Medication ?Instructions ?Recorded ?Confirmed metformin 500 mg tablet 500 mg PO BID 04/21/24 11/12/24 aspirin 81 mg capsule 81 mg PO DAILY 04/22/24 11/12/24 clopidogrel 75 mg tablet 75 mg PO DAILY 07/01/24 11/12/24 sennosides 8.6 mg-docusate sodium 1 tab-cap PO DAILY PRN constipation 07/20/24 11/12/24 50 mg tablet (Colace 2-In-1) losartan 100 mg tablet 100 mg PO DAILY 07/24/24 11/12/24 quetiapine 100 mg tablet (Seroquel) 100 mg PO .QHS 07/24/24 11/12/24 rosuvastatin 40 mg tablet 40 mg PO DAILY 07/24/24 11/12/24 isosorbide mononitrate 60 mg 60 mg PO BID 07/31/24 11/12/24 tablet,extended release 24 hr lorazepam 1 mg tablet (Ativan) 1 mg PO Q6H PRN anxiety 07/31/24 11/12/24 hydralazine 50 mg tablet 50 mg PO TID PRN hypertension 09/15/24 11/12/24 albuterol sulfate 90 mcg/actuation 2 puff inhalation Q4H PRN 11/12/24 11/12/24 aerosol inhaler shortness of breath or wheezing Previous Rx's ?Medication ?Instructions ?Recorded carvedilol 25 mg tablet 25 mg PO TID #90 tabs 07/27/24 canagliflozin 300 mg tablet 300 mg PO DAILY #30 tabs 11/13/24 (Invokana) pantoprazole 40 mg tablet,delayed 40 mg PO BID #60 tabs 11/13/24 release (Protonix) Allergies Allergy/AdvReac Type Severity Reaction Status Date / Time amlodipine Allergy Mild Headache Verified 11/15/24 21:59 alprazolam (From Xanax) AdvReac Severe Watery Eye Verified 11/15/24 21:59 Opioid HPI Opioid Management Most Recent Opioid Data: Last Pain Scale 8 11/12/24 23:54 11/12/24 Last Pain Assessment 11/13/24 09:38 Last ORT Total Score 4 11/12/24 11:27 11/12/24 Last ORT Risk Category Moderate Risk 11/12/24 11:27 11/12/24 PFS PFS Medical History (Updated 11/15/24 @ 23:31 by Donald Monge) Chest pain ?R07.9 - Chest pain, unspecified (ICD-10) CAD (coronary artery disease) ?I25.10 - Atherosclerotic heart disease of [place] coronary artery without angina pectoris (ICD-10) Hypertensive urgency ?I16.0 - Hypertensive urgency (ICD-10) HTN (hypertension) ?I10 - Essential (primary) hypertension (ICD-10) Hypertensive urgency ?I16.0 - Hypertensive urgency (ICD-10) Chest pain ?R07.9 - Chest pain, unspecified (ICD-10) Anxiety ?F41.9 - Anxiety disorder, unspecified (ICD-10) HTN (hypertension) ?I10 - Essential (primary) hypertension (ICD-10) Hypokalemia ?E87.6 - Hypokalemia (ICD-10) Hypertension, uncontrolled ?I10 - Essential (primary) hypertension (ICD-10) Chest pain ?R07.9 - Chest pain, unspecified (ICD-10) NSTEMI (non-ST elevated myocardial infarction) ?I21.4 - Non-ST elevation (NSTEMI) myocardial infarction (ICD-10) Shortness of breath ?R06.02 - Shortness of breath (ICD-10) Headache ?R51.9 - Headache, unspecified (ICD-10) Elevated d-dimer ?R79.89 - Other specified abnormal findings of blood chemistry (ICD-10) Hypertensive emergency ?I16.1 - Hypertensive emergency (ICD-10) Uncontrolled hypertension ?I10 - Essential (primary) hypertension (ICD-10) Irritable bowel syndrome ?K58.9 - Irritable bowel syndrome without diarrhea (ICD-10) H/O nephrolithotomy with removal of calculi ?Z98.890 - Other specified postprocedural states (ICD-10) ?Z87.442 - Personal history of urinary calculi (ICD-10) Kidney stone ?N20.0 - Calculus of kidney (ICD-10) Sepsis ?A41.9 - Sepsis, unspecified organism (ICD-10) H/O angiography ?Z92.89 - Personal history of other medical treatment (ICD-10) Lung nodule ?R91.1 - Solitary pulmonary nodule (ICD-10) Anxiety ?F41.9 - Anxiety disorder, unspecified (ICD-10) HTN (hypertension) ?I10 - Essential (primary) hypertension (ICD-10) Diabetes ?E11.9 - Type 2 diabetes mellitus without complications (ICD-10) TIA (transient ischemic attack) ?G45.9 - Transient cerebral ischemic attack, unspecified (ICD-10) Surgical History H/O heart artery stent ?Z95.5 - Presence of coronary angioplasty implant and graft (ICD-10) History of appendectomy ?Z90.49 - Acquired absence of other specified parts of digestive tract (ICD-10) H/O tubal ligation ?Z98.51 - Tubal ligation status (ICD-10) History of cholecystectomy ?Z90.49 - Acquired absence of other specified parts of digestive tract (ICD-10) Family History (Updated 04/22/24 @ 01:15 by Stalin Kevin) Mother Family history of cancer Father MVA (motor vehicle accident) Brother Family history of stroke Social History (Updated 04/22/24 @ 01:26 by Stalin Kevin) Within the past year, how often did you have a drink containing alcohol: never Within the past year, how often did you have six or more drinks on one occasion: never Score interpretation: A score less than 3 is consistent with normal alcohol consumption. Smoking status: Former smoker Second hand tobacco smoke exposure: No Non-prescribed substance use: denies use Previous occupational history: no Known occupational exposures/hazards: No Highest level of school completed/degree received: high school graduate Do you want help with school or training: No Are you now , , , , never or living with a partner: In a typical week, how many times do you talk on the telephone with family, friends, or neighbors: 3 or more times per week How often do you get together with friends or relatives: 3 or more times per week How often do you attend nondenominational or confucianism services: never Do you belong to any clubs or organizations such as nondenominational groups unions, [employer] or athletic groups, or school groups: no Total score: 1 Score interpretation: A score of less than or equal to 1 indicates the most socially isolated. Little interest or pleasure in doing things: not at all Feeling down, depressed, or hopeless: not at all Feel stressed/tense/nervous/anxious/difficulty sleeping: not at all Do you think of yourself as: straight/heterosexual Gender Identity: female Exam Narrative Exam Narrative: Nurses notes and vital signs reviewed and patient is not hypoxic. afebrile General: Well-appearing and in no apparent distress. Skin: Warm, dry, no pallor noted. Head: Normocephalic, atraumatic. Eye: Pupils are equal, round and EOMI. No scleral icterus. Cardiovascular: Regular Rate and Rhythm without murmur, gallop or rub. Respiratory: No accessory muscle use or respiratory distress. Lungs are clear to auscultation, no wheezing, rales or rhonchi Chest Wall: no tenderness, crepitus or subcutaneous emphysema Back: No midline thoracic or lumbar vertebral tenderness. No CVA tenderness Musculoskeletal: normal ROM, no calf or popliteal tenderness, no lower extremity edema/swelling GI: Abdomen is soft, non-distended. Normal bowel sounds. No tenderness to palpation. No rebound, guarding, or rigidity noted. Neurological: A&O x4. No cranial nerve dysfunction observed. No truncal ataxia. Moves all extremities. Sensation intact. Psychiatric: Cooperative and interactive. Normal mood and affect. Constitutional Vital Signs, click to edit/add: Last Vital Signs Temp 97.6 F 11/15/24 21:59 Pulse 73 11/15/24 23:03 Resp 14 11/15/24 23:03 BP 154/69 H 11/15/24 23:03 Pulse Ox 95 11/15/24 23:03 O2 Del Method Room Air 11/15/24 22:23 Course Vital Signs Vital signs: Vital Signs Pulse Rate 77 11/15/24 21:53 Respiratory Rate 18 11/15/24 21:53 Blood Pressure 181/82 H 11/15/24 21:53 Pulse Oximetry 95 11/15/24 21:53 Oxygen Delivery Method Room Air 11/15/24 21:53 Temperature 97.6 F 11/15/24 21:59 Pulse Rate 73 11/15/24 23:03 Respiratory Rate 14 11/15/24 23:03 Blood Pressure 154/69 H 11/15/24 23:03 Pulse Oximetry 95 11/15/24 23:03 Oxygen Delivery Method Room Air 11/15/24 22:23 Medical Decision Making MDM Narrative Medical decision making narrative: 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 Blood drawn and sent for evaluation. She was given labetalol for her hypertension. She had not yet taken her nighttime medication. She is also ordered to receive a GI cocktail for her dyspepsia. EKG without any worrisome findings. CBC, CMP, troponin and BNP were all negative. Chest x-ray unremarkable. Patient felt better after ED treatment nose relieved that her troponin was negative. She was discharged home with recommendation to limit the activity of the left shoulder over the next few days to allow to recover. Take all meds as prescribed Medical Records Medical records reviewed: Yes I reviewed the patient's medical records Medical records narrative: Review of her recent admission was summarized in the [facility] Lab Data Lab results reviewed: Yes I reviewed the patient's lab results Labs: Lab Results 11/15/24 Range/Units 22:05 WBC 6.7 (4.0-11.0) 10^3/uL RBC 4.76 (4.20-5.40) 10^6/uL Hgb 12.4 (12.0-16.0) g/dL Hct 39.6 (36.0-48.0) % MCV 83.2 (81.0-99.0) fL MCH 26.1 L (26.7-34.0) pg MCHC 31.3 (29.9-35.2) g/dL RDW 15.3 H (11.0-15.0) % Plt Count 244 (150-450) 10^3/uL MPV 10.1 (9.5-13.5) fL Neut % (Auto) 51.6 (43.0-75.0) % Lymph % (Auto) 35.6 (20.5-60.0) % [place] % (Auto) 7.5 (1.7-12.0) % Eos % (Auto) 4.2 (0.9-7.0) % Baso % (Auto) 0.9 (0.2-2.0) % Neut # (Auto) 3.4 (1.4-6.5) 10^3/uL Lymph # (Auto) 2.4 (1.2-3.8) 10^3/uL [place] # (Auto) 0.5 (0.3-0.8) 10^3/uL Eos # (Auto) 0.3 (0.0-0.7) 10^3/uL Baso # (Auto) 0.1 (0.0-0.1) 10^3/uL Abs Immat Gran (auto) 0.01 (0.00-0.03) 10^3/uL Imm/Tot Granulo (auto) 0.2 (0.0-0.5) % Sodium 145 (136-145) mmol/L Potassium 3.6 (3.5-5.1) mmol/L Chloride 107 (98-107) mmol/L Carbon Dioxide 28.1 (21.0-32.0) mmol/L Anion Gap 13.5 BUN 17.0 (7.0-18.0) mg/dL Creatinine 1.14 H (0.55-1.02) mg/dL Est GFR ( Amer) 59 L (>=60 mL/min/1.73m^2) Est GFR (Non-Af Amer) 49 L (>=60 mL/min/1.73m^2) BUN/Creatinine Ratio 14.9 Glucose 108 H (74-106) mg/dL Calcium 8.9 (8.5-10.1) mg/dL Total Bilirubin 0.3 (0.2-1.0) mg/dL AST 37 (15-37) U/L ALT 58 (14-59) U/L Alkaline Phosphatase 76 (46-116) U/L Troponin I High Sens 8.4 (4.0-51.3) pg/mL NT-Pro-B Natriuret Pep 199.0 (<=900.0) pg/mL Total Protein 7.2 (6.4-8.2) g/dL Albumin 3.8 (3.4-5.0) g/dL Globulin 3.4 g/dL Albumin/Globulin Ratio 1.1 Imaging Data Chest x-ray: Radiologist's impression: ITS Impressions Chest X-Ray 11/15/24 22:10 IMPRESSION: Stable chest, with no acute radiographic findings. This report was generated with voice recognition software. Effort has been made to ensure accuracy of this report, however, occasional wording errors may persist. Please contact our office with any questions. Electronically authenticated by: SAE CM Date: 11/15/2024 22:54 ECG Data Attestation: I personally reviewed and interpreted this ECG as follows: Interpretation: EKG interpretation: Emergency Department physician interpretation. Normal sinus rhythm at 75bpm. Normal axis, normal intervals and nonspecific T wave changes. No ST segment elevation or depression. Borderline EKG. Discharge Plan Discharge Chief Complaint: Chest Pain Clinical Impression: Acute pain of left shoulder Patient Disposition: Home, Self-Care Time of Disposition Decision: 23:31 Prescriptions / Home Meds: No Action metformin 500 mg tablet 500 mg PO BID aspirin 81 mg capsule 81 mg PO DAILY sennosides-docusate sodium [Colace 2-In-1] 8.6-50 mg tablet 1 tab-cap PO DAILY PRN (Reason: constipation) losartan 100 mg tablet 100 mg PO DAILY rosuvastatin 40 mg tablet 40 mg PO DAILY quetiapine [Seroquel] 100 mg tablet 100 mg PO .QHS Rx Instructions: AT HS carvedilol 25 mg Tablet 25 mg PO TID Qty: 90 11RF isosorbide mononitrate 60 mg Tablet Extended Release 24 Hr 60 mg PO BID lorazepam [Ativan] 1 mg tablet 1 mg PO Q6H PRN (Reason: anxiety) hydralazine 50 mg tablet 50 mg PO TID PRN (Reason: hypertension) Rx Instructions: States takes it if syst>150 albuterol sulfate 90 mcg/actuation HFA aerosol inhaler 2 puff INHALATION Q4H PRN (Reason: shortness of breath or wheezing) Invokana 300 mg tablet 300 mg PO DAILY Qty: 30 11RF pantoprazole [Protonix] 40 mg tablet,delayed release (DR/EC) 40 mg PO BID Qty: 60 11RF clopidogrel 75 mg tablet 75 mg PO DAILY Print Language: Armenian Instructions: Shoulder Pain (ED) Referrals: Carlito Murillo MD [Primary Care Provider] - 1 week
[2024-11-15 22:22] LABS: Basophils Absolute Auto 0.1 10^3/uL (0.0-0.1); Basophils Percent Auto 0.9 % (0.2-2.0); Eosinophils Absolute Auto 0.3 10^3/uL (0.0-0.7); Eosinophils Percent Auto 4.2 % (0.9-7.0); Hematocrit 39.6 % (36.0-48.0); Hemoglobin 12.4 g/dL (12.0-16.0); Immature Granulocytes Abs Auto 0.01 10^3/uL (0.00-0.03); Immature Granulocytes Pct Auto 0.2 % (0.0-0.5); Lymphocytes Absolute Auto 2.4 10^3/uL (1.2-3.8); Lymphocytes Percent Auto 35.6 % (20.5-60.0); Mean Corpuscular HGB Conc 31.3 g/dL (29.9-35.2); Mean Corpuscular Hemoglobin 26.1 pg (26.7-34.0); Mean Corpuscular Volume 83.2 fL (81.0-99.0); Mean Platelet Volume 10.1 fL (9.5-13.5); Monocytes Absolute Auto 0.5 10^3/uL (0.3-0.8); Monocytes Percent Auto 7.5 % (1.7-12.0); Neutrophils Absolute Auto 3.4 10^3/uL (1.4-6.5); Neutrophils Percent Auto 51.6 % (43.0-75.0); Platelet Count 244 10^3/uL (150-450); Red Blood Count 4.76 10^6/uL (4.20-5.40); Red Cell Distribution Width 15.3 % (11.0-15.0); White Blood Count 6.7 10^3/uL (4.0-11.0)
[2024-11-15] MEDS: LABETALOL HCL 20 MG/4 ML SYRINGE IVP (22:40)
[2024-11-15] MEDS: lidocaine HCL 15 ML, MAG HYDROX/ALUMINUM HYD/SIMETH 30 ML, HYOSCYAMINE SULFATE 0.25 MG PO (22:41)
[2024-11-15 22:47] LABS: Alanine Aminotransferase 58 U/L (14-59); Albumin Globulin Ratio 1.1; Albumin Level 3.8 g/dL (3.4-5.0); Alkaline Phosphatase 76 U/L (46-116); Anion Gap 13.5; Aspartate Amino Transferase 37 U/L (15-37); BUN Creatinine Ratio 14.9; Bilirubin Total 0.3 mg/dL (0.2-1.0); Calcium 8.9 mg/dL (8.5-10.1); Carbon Dioxide 28.1 mmol/L (21.0-32.0); Chloride 107 mmol/L (98-107); Estimated GFR (African America 59 (>=60 mL/min/1.73m^2); Estimated GFR (Non-African Ame 49 (>=60 mL/min/1.73m^2); Globulin 3.4 g/dL; Glucose 108 mg/dL (74-106); Potassium 3.6 mmol/L (3.5-5.1); Sodium 145 mmol/L (136-145); Total Protein 7.2 g/dL (6.4-8.2); Troponin I High Sensitivity 8.4 pg/mL (4.0-51.3)
== END 2024-11-15 23:52 | disposition home or self-care (01) ==
PROVIDERS: Emergency Provider Emergency Medicine; PCP Family Medicine
DX: M25.512 Pain in left shoulder (principal); K21.9 Gastro-esophageal reflux disease without esophagitis; Z87.891 Personal history of nicotine dependence; I10 Essential (primary) hypertension
CPT/HCPCS: 36415; 71045; 80053; 83880; 84484; 85025; 93005; 96374; 99285; J1920

== ENCOUNTER 2024-11-20 13:11 | Outpatient (RCR) | payer MEDICAID, SELFPAY ==
--- NOTE | 2024-08-09 13:50 | CR1_ITS ---
[facility] Test Date: 2024-08-09 Pat Name: MILAN RSAMUSSEN Department: Room: - Gender: Female Engraver Block: : 1965 Requested By: GOMEZ JAY M.D. Order Number: [id number] Reading MD: AMBER MAN Interpretive Statements Session Date: Electronically Signed On 08-09-2024 23:13:13 EDT by AMBER MAN
--- NOTE | 2024-09-05 09:55 | CR1_ITS ---
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 Order Number: [id number] Reading MD: AMBER MAN Interpretive Statements Session Date: Electronically Signed On 09-05-2024 22:39:54 EDT by AMBER MAN
--- NOTE | 2024-11-07 10:08 | CR1_ITS ---
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 Order Number: [id number] Reading MD: AMBER MAN Interpretive Statements Session Date: Electronically Signed On 11-07-2024 20:11:30 EST by AMBER MAN
== END 2024-11-21 12:07 | disposition home or self-care (01) ==
LOC: CR 13:11
PROVIDERS: PCP Family Medicine; Visit Provider Internal Medicine Interventional Cardiology
DX: Z98.61 Coronary angioplasty status (principal)
CPT/HCPCS: 93798

== ENCOUNTER 2024-11-25 10:16 | Emergency (ER) | payer MEDICAID, SELFPAY ==
[2024-11-25 10:13] VITALS: BP 149/71; PULSE 73; TEMP 36.4; O2SAT 97; BMI 34.3
[2024-11-25 10:15] VITALS: BP 154/57; PULSE 72; O2SAT 98
[2024-11-25 10:30] VITALS: BP 147/78; PULSE 72; O2SAT 97
--- NOTE | 2024-11-25 10:33 | XR_ITS ---
The [address] [address] Patient Name: MILAN RASMUSSEN MRN: [id number] date: 1965 Sex: F Assigned Patient Location: ER Current Patient Location: ER Accession/Order Number: [id number] Exam Date: 11/25/2024 10:52 Report Date: 11/25/2024 11:27 At the request of: CHEKO HOSKINS Procedure: XR chest 1V EXAM: XR chest 1V HISTORY: shortness of breath COMPARISON: Portable chest radiograph dated 11/15/2024. TECHNIQUE: AP erect portable chest radiograph performed. FINDINGS: The trachea is midline. Stable mild prominence of the cardiac silhouette. Stable mild atheromatous calcification at the aortic arch. Slightly more prominent mild to moderate elevation of the right hemidiaphragm. There is no consolidation, pleural effusion or pulmonary vascular congestion. There is no pneumothorax. The osseous structures are unremarkable. XR/XR chest 1V IMPRESSION: There is no acute cardiopulmonary process. Electronically authenticated by: EMMA EMERSON Date: 11/25/2024 11:27
--- NOTE | 2024-11-25 10:33 | ECG_ITS ---
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
--- NOTE | 2024-11-25 10:34 | ED.GENADUL1 ---
HPI HPI - General Adult General Chief complaint: Recheck/Abnormal Lab/Rx Stated complaint: HIGH BLOOD PRESSURE Time Seen by Provider: 11/25/24 10:23 Mode of arrival: ambulance History of Present Illness HPI narrative: pt brought in by ambulance for BP check and concern that her BP dropped too quickly after taking extra hydralazine this morning. Pt stated that her BP was elevated when she woke - 186/94. She said that she took her normal morning meds plus a dose of hydralazine. She then had two BMs and afterward felt dizzy, nauseous and shortness of breath. her BP had dropped to 101/57, she told us. She called EMS and was brought to our ED for evaluation. On arrival her symptoms had lessened but not fully dissipated. her BP at triage was 154/57. She had concerns because she CAD and a few months ago had NSTEMI. I saw her opn Carie when she experienced left shoulder pain following increased activity at home and had a negative workup including unremarkable EKG and negative troponin. Related Data Home Medications ?Medication ?Instructions ?Recorded ?Confirmed metformin 500 mg tablet 500 mg PO BID 04/21/24 11/25/24 aspirin 81 mg capsule 81 mg PO DAILY 04/22/24 11/25/24 clopidogrel 75 mg tablet 75 mg PO DAILY 07/01/24 11/25/24 sennosides 8.6 mg-docusate sodium 1 tab-cap PO DAILY PRN constipation 07/20/24 11/25/24 50 mg tablet (Colace 2-In-1) quetiapine 100 mg tablet (Seroquel) 100 mg PO .QHS 07/24/24 11/25/24 rosuvastatin 40 mg tablet 40 mg PO DAILY 07/24/24 11/25/24 isosorbide mononitrate 60 mg 60 mg PO BID 07/31/24 11/25/24 tablet,extended release 24 hr lorazepam 1 mg tablet (Ativan) 1 mg PO Q6H PRN anxiety 07/31/24 11/25/24 hydralazine 50 mg tablet 50 mg PO TID PRN hypertension 09/15/24 11/25/24 albuterol sulfate 90 mcg/actuation 2 puff inhalation Q4H PRN 11/12/24 11/25/24 aerosol inhaler shortness of breath or wheezing Previous Rx's ?Medication ?Instructions ?Recorded carvedilol 25 mg tablet 25 mg PO TID #90 tabs 07/27/24 canagliflozin 300 mg tablet 300 mg PO DAILY #30 tabs 11/13/24 (Invokana) pantoprazole 40 mg tablet,delayed 40 mg PO BID #60 tabs 11/13/24 release (Protonix) Allergies Allergy/AdvReac Type Severity Reaction Status Date / Time amlodipine Allergy Mild Headache Verified 11/15/24 21:59 alprazolam (From Xanax) AdvReac Severe Watery Eye Verified 11/15/24 21:59 Opioid HPI Opioid Management Most Recent Opioid Data: Last Pain Scale 8 11/12/24 23:54 11/12/24 Last ORT Total Score 4 11/12/24 11:27 11/12/24 Last ORT Risk Category Moderate Risk 11/12/24 11:27 11/12/24 [facility] Medical History (Updated 11/25/24 @ 10:44 by Donald Monge) Elevated troponin ?R79.89 - Other specified abnormal findings of blood chemistry (ICD-10) Hypertensive emergency ?I16.1 - Hypertensive emergency (ICD-10) Acute non-ST elevation myocardial infarction (NSTEMI) ?I21.4 - Non-ST elevation (NSTEMI) myocardial infarction (ICD-10) Chest pain ?R07.9 - Chest pain, unspecified (ICD-10) CAD (coronary artery disease) ?I25.10 - Atherosclerotic heart disease of [place] coronary artery without angina pectoris (ICD-10) Hypertensive urgency ?I16.0 - Hypertensive urgency (ICD-10) HTN (hypertension) ?I10 - Essential (primary) hypertension (ICD-10) Hypertensive urgency ?I16.0 - Hypertensive urgency (ICD-10) Chest pain ?R07.9 - Chest pain, unspecified (ICD-10) Anxiety ?F41.9 - Anxiety disorder, unspecified (ICD-10) HTN (hypertension) ?I10 - Essential (primary) hypertension (ICD-10) Hypokalemia ?E87.6 - Hypokalemia (ICD-10) Hypertension, uncontrolled ?I10 - Essential (primary) hypertension (ICD-10) Chest pain ?R07.9 - Chest pain, unspecified (ICD-10) NSTEMI (non-ST elevated myocardial infarction) ?I21.4 - Non-ST elevation (NSTEMI) myocardial infarction (ICD-10) Shortness of breath ?R06.02 - Shortness of breath (ICD-10) Headache ?R51.9 - Headache, unspecified (ICD-10) Elevated d-dimer ?R79.89 - Other specified abnormal findings of blood chemistry (ICD-10) Hypertensive emergency ?I16.1 - Hypertensive emergency (ICD-10) Uncontrolled hypertension ?I10 - Essential (primary) hypertension (ICD-10) Irritable bowel syndrome ?K58.9 - Irritable bowel syndrome without diarrhea (ICD-10) H/O nephrolithotomy with removal of calculi ?Z98.890 - Other specified postprocedural states (ICD-10) ?Z87.442 - Personal history of urinary calculi (ICD-10) Kidney stone ?N20.0 - Calculus of kidney (ICD-10) Sepsis ?A41.9 - Sepsis, unspecified organism (ICD-10) H/O angiography ?Z92.89 - Personal history of other medical treatment (ICD-10) Lung nodule ?R91.1 - Solitary pulmonary nodule (ICD-10) Anxiety ?F41.9 - Anxiety disorder, unspecified (ICD-10) HTN (hypertension) ?I10 - Essential (primary) hypertension (ICD-10) Diabetes ?E11.9 - Type 2 diabetes mellitus without complications (ICD-10) TIA (transient ischemic attack) ?G45.9 - Transient cerebral ischemic attack, unspecified (ICD-10) Surgical History H/O heart artery stent ?Z95.5 - Presence of coronary angioplasty implant and graft (ICD-10) History of appendectomy ?Z90.49 - Acquired absence of other specified parts of digestive tract (ICD-10) H/O tubal ligation ?Z98.51 - Tubal ligation status (ICD-10) History of cholecystectomy ?Z90.49 - Acquired absence of other specified parts of digestive tract (ICD-10) Family History (Updated 04/22/24 @ 01:15 by Stalin Kevin) Mother Family history of cancer Father MVA (motor vehicle accident) Brother Family history of stroke Social History (Updated 04/22/24 @ 01:26 by Stalin Kevin) Within the past year, how often did you have a drink containing alcohol: never Within the past year, how often did you have six or more drinks on one occasion: never Score interpretation: A score less than 3 is consistent with normal alcohol consumption. Smoking status: Former smoker Second hand tobacco smoke exposure: No Non-prescribed substance use: denies use Previous occupational history: no Known occupational exposures/hazards: No Highest level of school completed/degree received: high school graduate Do you want help with school or training: No Are you now , , , , never or living with a partner: In a typical week, how many times do you talk on the telephone with family, friends, or neighbors: 3 or more times per week How often do you get together with friends or relatives: 3 or more times per week How often do you attend mosque or yazidi services: never Do you belong to any clubs or organizations such as mosque groups unions, fraternal or athletic groups, or school groups: no Total score: 1 Score interpretation: A score of less than or equal to 1 indicates the most socially isolated. Little interest or pleasure in doing things: not at all Feeling down, depressed, or hopeless: not at all Feel stressed/tense/nervous/anxious/difficulty sleeping: not at all Do you think of yourself as: straight/heterosexual Gender Identity: female Exam Narrative Exam Narrative: Nurses notes and vital signs reviewed and patient is not hypoxic. afebrile - T97.5 (slightly low) General: Well-appearing and in no apparent distress. Skin: Warm, dry, no pallor noted. Head: Normocephalic, atraumatic. Neck: Supple, non-tender. No bruits. Eye: Pupils are equal, round and EOMI. No scleral icterus. Ears, Nose, Mouth, and Throat: TM are clear, no nasal mucosal hypertrophy, uvula is mid-line. Oral mucosa is moist Cardiovascular: Regular Rate and Rhythm without murmur, gallop or rub. Respiratory: No accessory muscle use or respiratory distress. Lungs are clear to auscultation, no wheezing, rales or rhonchi Musculoskeletal: normal ROM, no calf or popliteal tenderness, no lower extremity edema/swelling GI: Abdomen is soft, non-distended. Normal bowel sounds. No pulsatile mass. No tenderness to palpation. No rebound, guarding, or rigidity noted. Neurological: A&O x4. No cranial nerve dysfunction observed. No truncal ataxia. Sitting up did not exacerbate symptoms. Moves all extremities. Sensation intact. Psychiatric: Cooperative and interactive. Normal mood and affect. Constitutional Vital Signs, click to edit/add: Last Vital Signs Temp 97.5 F L 11/25/24 10:13 Pulse 76 11/25/24 11:12 Resp 18 11/25/24 11:12 BP 140/57 11/25/24 11:12 Pulse Ox 97 11/25/24 10:30 O2 Del Method Room Air 11/25/24 10:13 Course Vital Signs Vital signs: Vital Signs Temperature 97.5 F L 11/25/24 10:13 Pulse Rate 73 11/25/24 10:13 Respiratory Rate 18 11/25/24 10:13 Blood Pressure 149/71 H 11/25/24 10:13 Pulse Oximetry 97 11/25/24 10:13 Oxygen Delivery Method Room Air 11/25/24 10:13 Temperature 97.5 F L 11/25/24 10:13 Pulse Rate 76 11/25/24 11:12 Respiratory Rate 18 11/25/24 11:12 Blood Pressure 140/57 11/25/24 11:12 Pulse Oximetry 97 11/25/24 10:30 Oxygen Delivery Method Room Air 11/25/24 10:13 Medical Decision Making MDM Narrative Medical decision making narrative: Patient was placed on manager cardiac and EKG obtained. Blood drawn and sent for evaluation. Portable chest x-ray obtained. Workup was unremarkable. Chest x-ray did not show any acute cardiopulmonary abnormality. CBC, BMP, magnesium, troponin and BNP were all normal. Patient was given reassurance and informed of negative results. On reassessment at 1120, she was asymptomatic had return to normal . Patient discharged home with recommendation to take medicines as prescribed, avoid any extra antihypertensives today & follow-up with her PCP as needed. ED return if she worsens Medical Records Medical records reviewed: Yes I reviewed the patient's medical records Lab Data Lab results reviewed: Yes I reviewed the patient's lab results Labs: Lab Results 11/25/24 Range/Units 10:42 WBC 6.2 (4.0-11.0) 10^3/uL RBC 4.64 (4.20-5.40) 10^6/uL Hgb 11.9 L (12.0-16.0) g/dL Hct 38.3 (36.0-48.0) % MCV 82.5 (81.0-99.0) fL MCH 25.6 L (26.7-34.0) pg MCHC 31.1 (29.9-35.2) g/dL RDW 15.8 H (11.0-15.0) % Plt Count 189 (150-450) 10^3/uL MPV 9.7 (9.5-13.5) fL Neut % (Auto) 68.2 (43.0-75.0) % Lymph % (Auto) 21.1 (20.5-60.0) % Kern % (Auto) 6.6 (1.7-12.0) % Eos % (Auto) 3.2 (0.9-7.0) % Baso % (Auto) 0.6 (0.2-2.0) % Neut # (Auto) 4.2 (1.4-6.5) 10^3/uL Lymph # (Auto) 1.3 (1.2-3.8) 10^3/uL Kern # (Auto) 0.4 (0.3-0.8) 10^3/uL Eos # (Auto) 0.2 (0.0-0.7) 10^3/uL Baso # (Auto) 0.0 (0.0-0.1) 10^3/uL Abs Immat Gran (auto) 0.02 (0.00-0.03) 10^3/uL Imm/Tot Granulo (auto) 0.3 (0.0-0.5) % Sodium 142 (136-145) mmol/L Potassium 3.7 (3.5-5.1) mmol/L Chloride 106 (98-107) mmol/L Carbon Dioxide 24.0 (21.0-32.0) mmol/L Anion Gap 15.7 BUN 15.0 (7.0-18.0) mg/dL Creatinine 1.04 H (0.55-1.02) mg/dL Est GFR ( Amer) >60 (>=60 mL/min/1.73m^2) Est GFR (Non-Af Amer) 54 L (>=60 mL/min/1.73m^2) BUN/Creatinine Ratio 14.4 Glucose 112 H (74-106) mg/dL Calcium 8.6 (8.5-10.1) mg/dL Magnesium 2.1 (1.8-2.4) mg/dL Troponin I High Sens 6.2 (4.0-51.3) pg/mL NT-Pro-B Natriuret Pep 171.0 (<=900.0) pg/mL ECG Data Attestation: I personally reviewed and interpreted this ECG as follows: Interpretation: EKG interpretation: Emergency Department physician interpretation. Normal sinus rhythm at 73bpm. Normal axis, normal intervals and non-specific T wave changes without ST segment elevation or depression. Discharge Plan Discharge Chief Complaint: Recheck/Abnormal Lab/Rx Clinical Impression: Hypertension, Vasovagal near syncope Patient Disposition: Home, Self-Care Time of Disposition Decision: 11:29 Prescriptions / Home Meds: No Action metformin 500 mg tablet 500 mg PO BID aspirin 81 mg capsule 81 mg PO DAILY sennosides-docusate sodium [Colace 2-In-1] 8.6-50 mg tablet 1 tab-cap PO DAILY PRN (Reason: constipation) rosuvastatin 40 mg tablet 40 mg PO DAILY quetiapine [Seroquel] 100 mg tablet 100 mg PO .QHS Rx Instructions: AT HS carvedilol 25 mg Tablet 25 mg PO TID Qty: 90 11RF isosorbide mononitrate 60 mg Tablet Extended Release 24 Hr 60 mg PO BID lorazepam [Ativan] 1 mg tablet 1 mg PO Q6H PRN (Reason: anxiety) hydralazine 50 mg tablet 50 mg PO TID PRN (Reason: hypertension) Rx Instructions: States takes it if syst>150 albuterol sulfate 90 mcg/actuation HFA aerosol inhaler 2 puff INHALATION Q4H PRN (Reason: shortness of breath or wheezing) Invokana 300 mg tablet 300 mg PO DAILY Qty: 30 11RF pantoprazole [Protonix] 40 mg tablet,delayed release (DR/EC) 40 mg PO BID Qty: 60 11RF clopidogrel 75 mg tablet 75 mg PO DAILY Print Language: Greek Instructions: Hypertension (ED), Near Syncope (ED) Referrals: Carlito Murillo MD [Primary Care Provider] - 1 week
[2024-11-25 10:48] LABS: Basophils Percent Auto 0.6 % (0.2-2.0); Eosinophils Absolute Auto 0.2 10^3/uL (0.0-0.7); Eosinophils Percent Auto 3.2 % (0.9-7.0); Hematocrit 38.3 % (36.0-48.0); Hemoglobin 11.9 g/dL (12.0-16.0); Immature Granulocytes Abs Auto 0.02 10^3/uL (0.00-0.03); Immature Granulocytes Pct Auto 0.3 % (0.0-0.5); Lymphocytes Absolute Auto 1.3 10^3/uL (1.2-3.8); Lymphocytes Percent Auto 21.1 % (20.5-60.0); Mean Corpuscular HGB Conc 31.1 g/dL (29.9-35.2); Mean Corpuscular Hemoglobin 25.6 pg (26.7-34.0); Mean Corpuscular Volume 82.5 fL (81.0-99.0); Mean Platelet Volume 9.7 fL (9.5-13.5); Monocytes Absolute Auto 0.4 10^3/uL (0.3-0.8); Monocytes Percent Auto 6.6 % (1.7-12.0); Neutrophils Absolute Auto 4.2 10^3/uL (1.4-6.5); Neutrophils Percent Auto 68.2 % (43.0-75.0); Platelet Count 189 10^3/uL (150-450); Red Blood Count 4.64 10^6/uL (4.20-5.40); Red Cell Distribution Width 15.8 % (11.0-15.0); White Blood Count 6.2 10^3/uL (4.0-11.0)
[2024-11-25 11:01] LABS: Anion Gap 15.7; BUN Creatinine Ratio 14.4; Calcium 8.6 mg/dL (8.5-10.1); Chloride 106 mmol/L (98-107); Estimated GFR (African America >60 (>=60 mL/min/1.73m^2); Estimated GFR (Non-African Ame 54 (>=60 mL/min/1.73m^2); Glucose 112 mg/dL (74-106); Potassium 3.7 mmol/L (3.5-5.1); Sodium 142 mmol/L (136-145)
[2024-11-25 11:12] VITALS: BP 140/57; PULSE 76
[2024-11-25] MEDS: ONDANSETRON PF 4 MG/2 ML VIAL IV (11:12)
[2024-11-25 11:13] LABS: Magnesium 2.1 mg/dL (1.8-2.4); Troponin I High Sensitivity 6.2 pg/mL (4.0-51.3)
== END 2024-11-25 11:41 | disposition home or self-care (01) ==
PROVIDERS: Emergency Provider Emergency Medicine; PCP Family Medicine
DX: R55 Syncope and collapse (principal); I10 Essential (primary) hypertension; R42 Dizziness and giddiness; I25.2 Old myocardial infarction; I25.10 Atherosclerotic heart disease of native coronary artery without angina pectoris; Z95.5 Presence of coronary angioplasty implant and graft; Z98.51 Tubal ligation status; Z90.49 Acquired absence of other specified parts of digestive tract; Z87.891 Personal history of nicotine dependence
CPT/HCPCS: 36415; 71045; 80048; 83735; 83880; 84484; 85025; 93005; 96374; 99285; J2405

== ENCOUNTER 2025-01-31 00:24 | Emergency (ER) | payer MEDICAID, SELFPAY ==
[2025-01-31] VITALS (14 sets, daily range): BP systolic 161–174; BP diastolic 66–94; PULSE 69–74; TEMP 36.6; O2SAT 92–99; BMI 37.2
--- OUTSIDE RECORDS SUMMARY | 2025-01-31 00:29 | XMS_ITS | CCD ---
Author Organization [facility] Care Team Providers Care Financial Sales Professional Name Role Phone Kendra Moran Primary Care Physician [phone] Umm LANDON Attending Unavailable NILL, Umm Michael [...] Medrano Consulting Unavailable HERMINIA JULIAN Attending Unavailable JOSE BETANCUR Referring Unavailable NONA FUCHS Admitting Unavailable TAO NASSAR Attending Unavailable FEDERICA ANDERSON Referring Unavailable RICHA VIRAMONTES Attending Unavailable GOMEZ SPENCE Attending Unavailable RICHA VIRAMONTES Attending Unavailable FENG CHRISTIE Attending Unavailable GOMEZ SPENCE Attending Unavailable STEPHENBIJAN Attending Unavailable HORANI, NONA Referring Unavailable JODEFENG Fowler Attending Unavailable FENG CHRISTIE Attending Unavailable MESERET MAC Referring Unavailable STEPHENBIJAN Attending Unavailable OMBALLI, MOHAMED Referring Unavailable OMBALLI, MOHAMED Referring Unavailable JODEH, FENG Referring Unavailable JODEH, FENG Attending Unavailable HORANI, NONA Referring Unavailable FEDERICA ANDERSON Referring Unavailable JESÚS CORDOBAHAN Referring Unavailable JULIANHERMINIA MENDEZ Referring Unavailable HORANI, NONA Referring Unavailable LEONORAYJOSEKENDRA Referring Unavailable HORANI, NONA Admitting Unavailable HORANI, NONA Attending Unavailable HORANI, NONA Referring Unavailable Allergies Allergy Classification Reported Allergen(s) Allergy Type Date of Onset Reaction(s) Facility (1 source) No Known Medication Allergies; Translations: [No Known Medication Allergies] Propensity to adverse reactions (disorder) [facility] Repository (1 source) ALPRAZolam; Translations: [ALPRAZOLAM] Drug Allergy [address] [place] [address] Repository (1 source) amLODIPine; Translations: [AMLODIPINE] Drug Allergy [address] [place] [address] Repository (1 source) Lisinopril; Translations: [LISINOPRIL] Drug Allergy [address] [place] [address] Repository Medications Current Medications Medication Drug Class(es) [...] Coronary arteriosclerosis; Translations: [Atherosclerotic heart disease of [place]quille coronary artery without angina pectoris] Onset: 11-26-2022 09-30-2022 Chronic Diabetes mellitus without complication (2 [...] Episodic Hypertension with complications and secondary hypertension (6 sources) Hypertension secondary to endocrine disorders; Translations: [Hypertensive heart disease with heart failure] Onset: 07-11-2024 Chronic Inflammation; infection of eye [...] [Benign neoplasm of left adrenal gland] Onset: 01-09-2025 Episodic Other diseases of kidney and ureters [...] [Other obesity due to excess calories] Onset: 08-29-2024 Chronic Other nutritional; endocrine; and metabolic disorders (2 sources) Body mass index (BMI) 37.0-37.9, adult; Translations: [Body mass index (BMI) 37.0-37.9, adult] Onset: 08-29-2024 Chronic Other skin disorders (2 sources) Inflamed seborrheic keratosis 10-31-2020 Episodic Peripheral and visceral atherosclerosis (2 sources) Atherosclerosis of renal artery; Translations: [Atherosclerosis of renal artery] Onset: 09-04-2024 Chronic Residual codes; unclassified (2 sources) Obstructive [...] EXPOS COVID-19] Onset: 11-26-2022 Unclassified (1 source) Resistant hypertension; Translations: [Resistant hypertension] Onset: 10-05-2024 Unclassified (1 source) Obesity, class 2; Translations: [Obesity, class 2] Onset: 08-29-2024 Past or Other Problems Problem Classification Problem Date Documented Date Episodic/Chronic Calculus of urinary tract (5 sources) History of calculus of kidney; Translations: [Kidney stone] Onset: 3 12-20-2019 Episodic Complications of surgical procedures or medical care (2 sources) Unspecified adverse effect of drug or medicament, initial encounter; Translations: [Unspecified adverse effect of drug or medicament, initial encounter] Onset: 4 Episodic Coronary atherosclerosis and other heart disease (2 sources) Presence of coronary angioplasty implant and graft; Translations: [Presence of coronary angioplasty implant and graft] Onset: 4 Episodic Fluid and electrolyte disorders (2 sources) Hypokalemia; Translations: [Hypokalemia] Onset: 4 Episodic Nonspecific chest pain (2 sources) Chest pain, unspecified; Translations: [Chest pain, unspecified] Onset: 4 Episodic Other aftercare (1 source) 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; Translations: [PENITENTIARY CURRENT USE OF ASPIRIN] Onset: 3 Episodic Other aftercare (1 source) Other correction (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 therapy; Translations: [OTH RIDE OPERATOR CURRENT DRUG THERAPY] Onset: 3 Episodic Other circulatory disease (1 source) Personal history of transient ischemic attack (TIA), and cerebral infarction without residual deficits; Translations: [PERS HX TIA AND CI NO RESID DEFICIT] Onset: 3 Episodic Other connective tissue disease (3 sources) Other specified soft tissue disorders; Translations: [OTHER SPEC SOFT TISSUE DISORDERS] Onset: 2 Episodic Other lower respiratory disease (2 sources) Solitary pulmonary nodule; Translations: [Solitary pulmonary nodule] Onset: 4 Episodic Other lower respiratory disease (2 sources) Other forms of dyspnea; Translations: [Other forms of dyspnea] Onset: 4 Episodic Other screening for suspected conditions (not mental disorders or infectious disease) (6 sources) Encounter for screening for malignant neoplasm of colon; Translations: [Abnormal electrocardiogram [ECG] [EKG]] Onset: 3 Episodic Other skin disorders (1 source) Other seborrheic keratosis; Translations: [OTHER SEBORRHEIC KERATOSIS] Onset: 3 Episodic Residual codes; unclassified (1 source) Acquired absence of other specified parts of digestive tract; Translations: [ACQ ABSENCE OTH PART DIGESTV TRACT] Onset: 3 Episodic Residual codes; unclassified (1 source) Acquired absence of both cervix and uterus; Translations: [ACQUIRED ABSENCE BOTH CERVIX AND UTERUS] Onset: 3 Episodic Residual codes; unclassified (1 source) Family history of malignant neoplasm of digestive organs; Translations: [FAM HX MALIG NEOPLASM DIGESTIV ORGN] Onset: 3 Episodic Residual codes; unclassified (4 sources) Localized edema; Translations: [LOCALIZED EDEMA] Onset: 2 Episodic Residual codes; unclassified (1 source) Edema, unspecified; Translations: [EDEMA UNSPECIFIED] Onset: 2 Episodic Screening and history of mental health and substance abuse codes (1 source) Personal history of nicotine dependence; Translations: [PERSONAL HISTORY OF NICOTINE DEPEND] Onset: 3 Episodic Syncope (2 sources) Syncope and collapse; Translations: [Syncope and collapse] Onset: 4 Episodic Unclassified (2 sources) Drug therapy finding 09-30-2022 Unclassified (1 source) Resistant hypertension; Translations: [Resistant hypertension] Onset: 5 Unclassified (1 source) Obesity, class 2; Translations: [Obesity, class 2] Onset: 4 Results Test Name Value Interpretation Reference Range Facility Follow-Upon 01-09-2025 Follow-Up [id number] Aby Madrigal 1965 F Date Provider Department Center 01/09/2025 [id number] [facility] Family History Problem Relation Age of Onset Lung cancer Mother No Known Problems Father Lung cancer Sister Family Status - Relation Status Age at Mother Father Sister Level of Service:81371 PA OFFICE/OUTPATIENT ESTABLISHED LOW MDM 20 MIN [facility] 36on 01-04-2025 36 Called patient's daughter at 10:40 AM 01/04/2025 - She confirms that her mother completed the saline infusion test. I explained that this test is intended to confirm underlying primary aldosteronism. The other test, adrenal venous sampling, is only performed if we have confirmation of primary aldosteronism as I would not send patient to do it unless I am certain. I will see patient in the office on January 09 and discuss results from saline infusion test at that time. Melanie thanked me for the call [facility] 3601-03-2025 36 Voicemail. Patient's daughter called in, she thought Dr. Christie was going to order testing where they go in through the groin to see which kidney is dumping off excess hormones, she would like a call back. [facility] Telephoneon 01-03-2025 Telephone [id number] Aby Madrigal 1965 F Date Provider Department Center 01/03/2025 [id number]-YEVTYFENG [facility] Family History Problem Relation Age of Onset Lung cancer Mother No Known Problems Father Lung cancer Sister Family Status - Relation Status Age at Mother Father Sister [facility] ALDOSTERONEon 01-02-2025 ALDOSTERONE (NG/DL) IN SER/PLAS 7.3 ng/dL Normal [facility] Comment [...] reference intervals for this test in the [facility] Test Directory (SNOBSWAP). Performed By: [facility] [employer] [address] [place], [place] [id number] General Helper: Navneet Simeon MD, PhD CLIA Number: [id number] Performed By: #### L [id number] #### [facility] (BEAKER) [address] [place] [address] ALDOSTERONE (NG/DL) IN SER/PLAS 14.2 ng/dL Normal [facility] Comment [...] reference intervals for this test in the [facility] Test Directory (SNOBSWAP). Performed By: [employer] [address] [place], [place] [id number] General Helper: Navneet Simeon MD, PhD CLIA Number: [id number] Performed By: #### L [id number] #### [facility] (BEAKER) [address] [place] [address] CORTISOLon 01-02-2025 CORTISOL (UG/DL) IN SER/PLAS 3.6 ug/dL Normal 0-9 [facility] Comment on above: Performed By: #### L AB61 ####[facility] (BEAKER)[address] [place] [address] CORTISOL (UG/DL) IN SER/PLAS 9.0 ug/dL Normal 6-23 [facility] Comment on above: Performed By: #### L AB61 ####[facility] ([facility])[address] [place] [address] NURSNOTEon 01-02-2025 NURSNOTE T-5=3403, at this ti me VS taken, IV started, labs drawn and NS hung at 500ml/hr. 0920 VS documented in flow sheet. Pt up to BR 1020 VS documented in flow sheet. Pt up to BR 1120 VS documented in flow sheet. Pt up to BR 1220 VS documented in flow sheet, NS stopped, labs drawn, IV discontinued and pt up to BR and released. Normal [facility] POTASSIUMon 01-02-2025 Potassium [Moles/Vol] 3.9 mmol/L Normal 3.5-5.1 [facility] Comment on above: Performed By: #### L AB114 ####[facility] ([facility])[address] [place] [address] Potassium [Moles/Vol] 4.0 mmol/L Normal 3.5-5.1 [facility] Comment on above: Performed By: #### L [id number] #### [facility] ([facility]) [address] [place] [address] RENIN ACTIVITYon 01-02-2025 RENIN ACTIVITY <0.1 Normal [facility] Comment on above: Result Comment: INTE RPRETIVE INFORMATION: Renin Activity Adult, Normal sodium diet: Supine ................. 0.2-1.6 ng/mL/hr Upright ................ 0.5-4.0 ng/mL/hr Children, Normal sodium diet, Supine: Turney (1-7 days) ..... 2.0-35.0 ng/mL/hr Cord blood [...] developed and its performance characteristics determined by [employer]. It has not been cleared or approved by the US Food and Drug Administration. This test was performed in a CLIA certified laboratory and is intended for clinical purposes. Performed By: [facility] [address] [place] [address] General Helper: Navneet Simeon MD, PhD [place] Number: [id number] Performed By: #### L AB15 #### [facility] (BEAKER) [address] [place] [address] RENIN ACTIVITY <0.1 Normal [facility] Comment [...] developed and its performance characteristics determined by [employer]. It has not been cleared or approved by the US Food and Drug Administration. This test was performed in a CLIA certified laboratory and is intended for clinical purposes. Performed By: [employer] [address] [place] [address] General Helper: Navneet Simeon MD, PhD CLIA Number: [id number] Performed By: #### L AB15 #### [facility] (BEAKER) [address] [place] [address] Orders Onlyon 01-01-2025 Orders Only [id number] Strausbaugh,Aby S 1965 F Date Provider Department Center 01/01/2025 [id number] BLACKMAN [facility] 2A Second Fl Family History Problem Relation Age of Onset Lung cancer Mother No Known Problems Father Lung cancer Sister Family Status - Relation Status Age at Mother Father Sister Normal [facility] Orders Only [id number] Strausbaugh,Aby S 1965 F Date Provider Department Center 01/01/2025 1759-GIBSON GARCIA [facility] 2A Second Fl Family History Problem Relation Age of Onset Lung cancer Mother No Known Problems Father Lung cancer Sister Family Status - Relation Status Age at Mother Father Sister Normal [facility] Orders Onlyon 12-26-2024 Orders Only [id number] Strausbaugh,Aby S 1965 F Date Provider Department Center 12/26/2024 [id number] BLACKMAN [facility] 2A Second Fl Family History Problem Relation Age of Onset Lung cancer Mother No Known Problems Father Lung cancer Sister Family Status - Relation Status Age at Mother Father Sister Normal [facility] Orders Only [id number] Strausbaugh,Aby S 1965 F Date Provider Department Center 12/26/2024 [id number] LUNSFORD [facility] 2A Second Fl Family History Problem Relation Age of Onset Lung cancer Mother No Known Problems Father Lung cancer Sister Family Status - Relation Status Age at Mother Father Sister Normal [facility] Orders Only [id number] Strausbaugh,Aby S 1965 F Date Provider Department Center 12/26/2024 1623DAX WILKERSON [facility] 2A Second Fl Family History Problem Relation Age of Onset Lung cancer Mother No Known Problems Father Lung cancer Sister Family Status - Relation Status Age at Mother Father Sister Normal [facility] 36on 12-25-2024 36 Patient has not hear d from the [facility] about scheduling this, she is going to reach out to them directly, but could someone reach out to the [facility] about what's going on? Normal [facility] Orders Onlyon 12-25-2024 Orders Only [id number] Strausbaugh,Aby S 1965 F Date Provider Department Center 12/25/2024 190-JOSE PRICE INF DCC Family History Problem Relation Age of Onset Lung cancer Mother No Known Problems Father Lung cancer Sister Family Status - Relation Status Age at Mother Father Sister Normal [facility] Orders Only [id number] Aby Madrigal S 1965 F Date Provider Department Center 12/25/2024 1759-GIBSON GARCIA [facility] 2A Second Fl Family History Problem Relation Age of Onset Lung cancer Mother No Known Problems Father Lung cancer Sister Family Status - Relation Status Age at Mother Father Sister Normal [facility] 36on 12-12-2024 36 Antonio I signed the orders for saline infusion test back on Oct 12 (its a Therapy Plan) Can we call the [facility] and ask what more do they need to get the patient scheduled thanks [facility] 36on 12-08-2024 36 Patient had not hear d from the [facility] about scheduling a Saline Infusion Test, when I look into the chart, I cannot find any orders [facility] Telephoneon 12-08-2024 Telephone [id number] Aby Madrigal S 1965 F Date Provider Department Center 12/08/2024 [id number], WADE [facility] ENDOCR [facility] Family History Problem Relation Age of Onset Lung cancer Mother No Known Problems Father Lung cancer Sister Family Status - Relation Status Age at Mother Father Sister Normal [facility] Abstracton 11-21-2024 Abstract [id number] Aby Madrigal S 1965 F Date Provider Department Center 11/21/202477514-NDALKU-UIWDARA CARTER ONC DCC Family History Problem Relation Age of Onset Lung cancer Mother No Known Problems Father Lung cancer Sister Family Status - Relation Status Age at Mother Father Sister Normal [facility] CT CHEST WO IV CONTRASTon CT CHEST WO IV CONTRAST CT CHEST WITHOUT CONTRAST HISTORY: Lung nodule COMPARISON: PET/CT 2024 TECHNIQUE: Routine CT chest without contrast. All CT scans at this facility use dose modulation, iterative reconstruction, and/or weight based dosing when appropriate to reduce radiation dose to as low as reasonably achievable. FINDINGS: Stable 1.1 cm noncalcified nodule in the right middle lobe (axial image 52). Area of atelectasis/scarring in the left lower lobe. New left lower lobe nodule measuring 0.8 cm (axial image 78). The central airways are patent. Hepatic steatosis. Cortical scarring in the visualized portions of the left kidney. Left adrenal nodule measuring 3.2 cm containing soft tissue and fat attenuation components, unchanged. No pleural or pericardial effusions. Normal heart size. Coronary artery calcifications. The thoracic aorta is unremarkable. The central pulmonary arteries are unremarkable. No enlarged thoracic lymph nodes. Multilevel degenerative changes in the thoracic spine. IMPRESSION: * Stable 1.1 cm noncalcified nodule in the right middle lobe. * New indeterminate 0.8 cm nodule in the left lower lobe. Follow-up chest CT recommended in 3 months to reassess. There is also a new area of atelectasis in the left lower lobe. * Stable appearance of left adrenal nodule measuring 3.2 cm. Electronically signed: Marlon Green MD. 5 Invalid Interpretation Code [facility] Office Visiton 10-26-2024 Follow-up visit [id number] Aby Madrigal 1965 F Date Provider Department Center 10/26/2024 Julio C-RICHA VIRAMONTES ONC DCC Family History Problem Relation Age of Onset Lung cancer Mother No Known Problems Father Lung cancer Sister Family Status - Relation Status Age at Mother Father Sister Level of Service:11452 PA OFFICE/OUTPATIENT ESTABLISHED SF MDM 10 MIN () Reason for Visit and Comments: Follow-up [[id number]] - F/U to review CT scan that was done today. Normal [facility] 29on 10-03-2024 29 Addended by: FENG CHRISTIE on: 10/12/2024 10:02 AM Modules accepted: Orders Normal [facility] 37on 10-03-2024 37 It was [...] called a saline infusion test at the [facility] they will be in contact with you likely within the next week. This is a 2-hour test in which we infused saline 2 L and assess any changes in your aldosterone level. This is in a monitored setting so you will not be alone. Normal [facility] Follow-Upon 10-03-2024 Follow-Up [id number] Aby Madrigal 1965 Date Provider Department Center 10/03/2024 [id number], FENG [facility] ENDOCR [facility] Family History Problem Relation Age of Onset Lung cancer Mother No Known Problems Father Lung cancer Sister Family Status - Relation Status Age at Mother Father Sister Level of Service:78334 PA OFFICE/OUTPATIENT ESTABLISHED MOD MDM 30 MIN Reason for Visit and Comments: Follow-up [[id number]] Normal [facility] Office Visiton 09-04-2024 Follow-up visit [id number] Aby Madrigal 1965 Date Provider Department Center 09/04/2024 Octavio-GOMEZ SPENCE RIAZ [facility] Family History Problem Relation Age of Onset Lung cancer Mother No Known Problems Father Lung cancer Sister Family Status - Relation Status Age at Mother Father Sister Level of Service:38403 PA OFFICE/OUTPATIENT ESTABLISHED MOD MDM 30 MIN Normal [facility] ALDOSTERONEon 08-29-2024 ALDOSTERONE (NG/DL) IN SER/PLAS 13.0 ng/dL Normal [facility] Comment [...] reference intervals for this test in the [facility] Test Directory (SNOBSWAP). Performed By: [facility] [employer] [address] [place] [address] General Helper: Navneet Simeon MD, PhD CLIA Number: [id number] Performed By: #### L [id number] #### [facility] (BEAKER) [address] [place] [address] Ron 08-29-2024 ALT [Catalytic activity/Vol] 25 U/L Normal 7-52 [facility] Comment on above: Performed By: #### L [id number] ####[facility] (BEAKER)[address] [place] [address] Riki 08-29-2024 AST [Catalytic activity/Vol] 21 U/L Normal 13-39 [facility] Comment on above: Performed By: #### L AB131 ####[facility] (BEAKER)[address] [place] [address] BASIC METABOLIC PANELon Anion gap [Moles/Vol] 12 mmol/L Normal 7-20 [facility] Comment on above: Performed By: #### L AB15 ####[facility] (BEAKER)[address] [place] [address] Calcium [Mass/Vol] 9.3 mg/dL Normal 8.6-10.3 [facility] Comment on above: Performed By: #### L AB15 ####[facility] (BEAKER)[address] [place] [address] Chloride [Moles/Vol] 105 mmol/L Normal 98-107 [facility] Comment on above: Performed By: #### L AB15 ####[facility] (BEAKER)[address] [place] [address] CO2 [Moles/Vol] 28 mmol/L Normal 21-31 [facility] Comment on above: Performed By: #### L AB15 ####[facility] (BEAKER)[address] [place] [address] Creatinine [Mass/Vol] 0.95 mg/dL Normal 0.60-1.20 [facility] Comment on above: Performed By: #### L AB15 ####[facility] (BEAKER)[address] [place] [address] GLOMERULAR FILTRATION RATE ML/MIN/1.73 SQ M.PREDICTED 68.6 mL/min/1.73m*2 Normal >60.0 [facility] Comment on above: Result Comment: The [facility]???s estimated glomerular filtration rate [...] of individuals. Performed By: #### L AB15 ####[facility] ([facility])[address] [facility] [place] [address] Glucose [Mass/Vol] 99 mg/dL Normal 70-100 [facility] Comment on above: Performed By: #### L AB15 ####[facility] ([facility])[address] [facility] [place] [address] Potassium [Moles/Vol] 3.6 mmol/L Normal 3.5-5.1 [facility] Comment on above: Performed By: #### L AB15 ####[facility] ([facility])[address] [place] [address] Sodium [Moles/Vol] 141 mmol/L Normal 136-145 [facility] Comment on above: Performed By: #### L AB15 ####[facility] ([facility])[address] [facility] [address] Urea nitrogen [Mass/Vol] 19 mg/dL Normal 7-25 [facility] Comment on above: Performed By: #### L AB15 ####[facility] ([facility])[address] [place] [facility] [place] [address] UREA NITROGEN/CREATININE (MASS RATIO) IN SER/PLAS 20.0 Normal [facility] Comment on above: Performed By: #### L AB15 ####[facility] ([facility])[address] [place] [address] CORTISOLon 08-29-2024 CORTISOL (UG/DL) IN SER/PLAS 6.1 ug/dL Normal 0-9 [facility] Comment on above: Performed By: #### L AB61 ####[facility] ([facility])[address] [place] [address] CT ABDOMEN PELVIS W AND WO I [...] Society Guidelines, Radiology 2017. Electronically signed: Marybeth Bryan. [address] Invalid Interpretation Code [facility] DEXAMETHASONE LEVELon 2023 DEXAMETHASONE <50.0 Normal [facility] Comment on above: Order [...] developed and its performance characteristics determined by [employer]. It has not been cleared or approved by the US Food and Drug Administration. This test was performed in a CLIA certified laboratory and is intended for clinical purposes. Performed By: [facility] [address] [place] [address] General Helper: Navneet Simeon MD, PhD CLIA Number: [id number] Performed By: #### L [id number] #### [facility] ([facility]) [address] [place] [address] LIPID PANELon 08-29-2024 CHOL/HDL 2.4 mg/dL Normal [facility] Comment on above: Performed By: #### L [id number] #### [facility] ([facility]) [address] [place] [address] Cholesterol [Mass/Vol] 80 mg/dL Low 120-200 [facility] Comment on above: Performed By: #### L [id number] #### [facility] ([facility]) [address] [place] [address] Magnesium [Mass/Vol] 96 mg/dL Normal 40-149 [facility] Comment on above: Result Comment: TRIG LYCERIDE REFERENCE RANGE: 20 YEARS AND OLDER CARDIOVASCULAR RISK LESS THAN 150 mg/dL LOW RISK 150 TO 199 mg/dL BORDERLINE RISK 200 mg/dL AND GREATER HIGH RISK Performed By: #### L [id number] #### [facility] ([facility]) [address] [place] [address] Magnesium [Mass/Vol] 28 mg/dL Normal 0-160 [facility] Comment on above: Performed By: #### L [id number] #### [facility] ([facility]) [address] [place] [address] Magnesium [Mass/Vol] 33 mg/dL Normal 23-92 [facility] Comment on above: Performed By: #### L [id number] #### [facility] ([facility]) [address] [place] [address] NON HDL CHOL. (LDL+VLDL) 47 Normal [facility] Comment on above: Performed By: #### L [id number] #### [facility] [address] [place] [address] TOTAL VLDL-C 19 mg/dL Normal 0-40 [facility] Comment on above: Performed By: #### L [id number] #### [facility] ([facility]) [address] [place] [address] Labon 08-29-2024 Lab [id number] Aby Madrigal 1965 F Date Provider Department Center 08/29/2024 [id number] OPD LAB RESOURCE [facility] OPD [facility] C Family History Problem Relation Age of Onset Lung cancer Mother No Known Problems Father Lung cancer Sister Family Status - Relation Status Age at Mother Father Sister Normal [facility] RENIN ACTIVITYon 08-29-2024 RENIN ACTIVITY <0.1 Normal [facility] Comment on above: Result Comment: INTE RPRETIVE INFORMATION: Renin Activity Adult, Normal sodium diet: Supine ................. 0.2-1.6 ng/mL/hr Upright ................ 0.5-4.0 ng/mL/hr Children, Normal sodium diet, Supine: Turney (1-7 days) ..... 2.0-35.0 ng/mL/hr Cord blood [...] developed and its performance characteristics determined by [employer]. It has not been cleared or approved by the US Food and Drug Administration. This test was performed in a CLIA certified laboratory and is intended for clinical purposes. Performed By: [employer] [address] [place] [address] General Helper: Navneet Simeon MD, PhD CLIA Number: [id number] Performed By: #### L [id number] ####[facility] (AKER)[address] [place] [address] 36on 08-10-2024 36 Updated patient on Nodify blood test results and plan for f/u CT and appt scheduled for 10/26/24. [facility] Letter (Out)on 08-09-2024 Letter (Out) [id number] Aby Madrigal 1965 F Date Provider Department Center 08/09/2024 None-None [facility] ADMIT None Family History Problem Relation Age of Onset Lung cancer Mother No Known Problems Father Lung cancer Sister Family Status - Relation Status Age at Mother Father Sister [facility] 36on 08-08-2024 36 Called patient over [...] 03 She thanked me for the call [facility] Orders Onlyon 08-08-2024 Orders Only [id number] Aby Madrigal 1965 F Date Provider Department Center 08/08/2024 ReginaRICHA VIRAMONTES ONC DCC Family History Problem Relation Age of Onset Lung cancer Mother No Known Problems Father Lung cancer Sister Family Status - Relation Status Age at Mother Father Sister Normal [facility] Telephoneon 08-08-2024 Telephone [id number] Aby Madrigal 1965 F Date Provider Department Center 08/08/2024 [id number], WADE [facility] ENDOCR [facility] Family History Problem Relation Age of Onset Lung cancer Mother No Known Problems Father Lung cancer Sister Family Status - Relation Status Age at Mother Father Sister Normal [facility] Telemedicineon 07-20-2024 Telemedicine [id number] Aby Madrigal S 1965 F Date Provider Department Center 07/20/2024 RICHA MERINO NICKI ONC DCC Family History Problem Relation Age of Onset Lung cancer Mother No Known Problems Father Lung cancer Sister Family Status - Relation Status Age at Mother Father Sister Level of Service:33886 PA PHYS/QHP TELEPHONE EVALUATION 21-30 MIN () Reason for Visit and Comments: 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 CT CHEST 04-21-24- PET 06-21-24 Films requested 07-18-24 HAVING HARD TIME GETTING FILMS FROM [facility] AGAIN. Ginny at [place] ([phone] direct line) is working on sending them. CHECK [facility] FOR FILMS PLEASE Normal [facility] 37on 07-18-2024 37 It [...] lab work done at one of these [facility] Sites The results will then come straight to me I appreciate it [facility] [address] Hours Wednesday - Wednesday 8 AM - 4PM (Closed 12 - 12:30 PM daily) Phone: [facility] [address] Hours: Wednesday - Wednesday 6 AM - 5 PM day: 7 AM - 2 PM Phone: [address] [place] Hours: Wednesday - Wednesday 7 AM - 3:30 PM Phone: [facility] [address] [place] Hours: Wednesday - Wednesday 7 AM - 5:30 PM Phone: Kayy Maurer [facility] [address] Hours: Wednesday - Wednesday 8 AM - 4:30 PM Phone: [facility] EDNURSon 07-18-2024 EDNURS ADR and relevant inf o reported to [facility] in pharmacy d/t safety net being down. Viet Kelly, MEGAN 07/18/24 1139 [facility] EDNURS SENT FROM MD OFFICE RE: LOW BP; RECENT DC FROM [facility] FOR SAME [facility] EDPROVon 07-18-2024 EDPROV HPI Chief Complaint [...] new meds yesterday. History provided by: Patient management and budget analyst used: No Musa Coma Scale Score: 15 Patient History [...] mouth i (more content not included)... Normal [facility] Office Visiton 07-18-2024 Follow-up visit [id number] Aby Madrigal 1965 F Date Provider Department [place] 07/18/2024 [id number] [facility] Family History Problem Relation Age of Onset Lung cancer Mother No Known Problems Father Lung cancer Sister Family Status - Relation Status Age at Mother Father Sister Level of Service:47018 PA OFFICE/OUTPATIENT NEW MODERATE MDM 45 MINUTES Reason for Visit and Comments: Nodules [Other] [facility] Follow-up visit [id number] Aby Madrigal 1965 F Date Provider Department [place] 07/18/2024 [id number] [facility] Family History Problem Relation Age of Onset Lung cancer Mother No Known Problems Father Lung cancer Sister Family Status - Relation Status Age at Mother Father Sister Level of Service:[facility] 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 I am calling you to follow [...] No Patient Name Aby Madrigal Date 07/13/24 [facility] Telephoneon 07-13-2024 Telephone [id number] Aby Madrigal 1965 F Date Provider Department Center 07/13/2024 Adela-GINNY GARCIA [facility] Family History Problem Relation Age of Onset Lung cancer Mother No Known Problems Father Lung cancer Sister Family Status - Relation Status Age at Mother Father Sister Reason for Visit and Comments: Hospital Follow-up [832] [facility] 30on 07-12-2024 30 The patient is [...] to address these barriers include . Normal [facility] ANTI-XA (HEPARIN LEVEL)on HEPARIN UNFRACTIONATED (U/ML) IN PPP BY CHROMOGENIC METHOD 0.60 IU/mL Normal 0.3-0.7 [facility] Comment on above: Order Comment: Check anti-Xa level every 6 hours while on heparin infusion, or per protocol. Result Comment: [place] roxaban and Apixaban will interfere with the anti Xa assay used to monitor UFH and LMWH. Performed By: #### L [id number] #### [facility] ([facility] [address] [place] [address] BASIC METABOLIC PANELon 08-2 Anion gap [Moles/Vol] 10 mmol/L Normal 7-20 [facility] Comment on above: Performed By: #### L [id number] #### [facility] ([facility] [address] [place] [address] Calcium [Mass/Vol] 8.8 mg/dL Normal 8.6-10.3 [facility] Comment on above: Performed By: #### L [id number] #### [facility] ([facility] [address] [place] [address] Chloride [Moles/Vol] 108 mmol/L High 98-107 [facility] Comment on above: Performed By: #### L [id number] #### [facility] ([facility]) [address] [place] [address] CO2 [Moles/Vol] 27 mmol/L Normal 21-31 [facility] Comment on above: Performed By: #### L [id number] #### [facility] ([facility]) [address] [place] [address] Creatinine [Mass/Vol] 0.89 mg/dL Normal 0.60-1.20 [facility] Comment on above: Performed By: #### L [id number] #### [facility] ([facility]) [address] [place] [address] GLOMERULAR FILTRATION RATE ML/MIN/1.73 SQ M.PREDICTED 74.2 mL/min/1.73m*2 Normal >60.0 [facility] Comment on above: Result Comment: The [facility]???s estimated glomerular filtration rate [...] group of individuals. Performed By: #### L [id number] #### [facility] ([facility]) [address] [place] [address] Glucose [Mass/Vol] 109 mg/dL High 70-100 [facility] Comment on above: Performed By: #### L [id number] #### [facility] ([facility]) [address] [place] [address] Potassium [Moles/Vol] 3.4 mmol/L Low 3.5-5.1 [facility] Comment on above: Performed By: #### L [id number] #### [facility] ([facility]) [address] [place] [address] Sodium [Moles/Vol] 142 mmol/L Normal 136-145 [facility] Comment on above: Performed By: #### L [id number] #### [facility] ([facility]) [address] [place] [address] Urea nitrogen [Mass/Vol] 11 mg/dL Normal 7-25 [facility] Comment on above: Performed By: #### L [id number] #### [facility] ([facility]) [address] [place] [address] UREA NITROGEN/CREATININE (MASS RATIO) IN SER/PLAS 12.4 Normal [facility] Comment on above: Performed By: #### L [id number] #### [facility] ([facility]) [address] [place] [address] CBC WITH AUTO DIFFERENTIALon 07-12-2024 Basophils (Bld) [#/Vol] 0.04 10*3/uL Normal 0.00-0.20 [facility] Comment on above: Performed By: #### L [id number] #### [facility] ([facility]) [address] [place] [address] Basophils/100 WBC (Bld) 0.6 % Normal 0.0-1.0 [facility] Comment on above: Performed By: #### L [id number] #### [facility] ([facility]) [address] [place] [address] Eosinophils (Bld) [#/Vol] 0.22 10*3/uL Normal 0.00-0.50 [facility] Comment on above: Performed By: #### L [id number] #### [facility] ([facility]) [address] [facility] [place] [address] Eosinophils/100 WBC (Bld) 3.5 % Normal 0.0-6.0 [facility] Comment on above: Performed By: #### L [id number] #### [facility] ([facility]) [address] [place] [address] Erythrocyte distribution width (RBC) [Ratio] 14.5 % Normal 11.5-15.0 [facility] Comment on above: Performed By: #### L [id number] #### [facility] ([facility]) [address] [place] [address] ERYTHROCYTE MEAN CORPUSCULAR HEMOGLOBIN CONCENTRATION (G/DL) BY AUTOMATED 32.7 g/dL Normal 32.0-35.0 [facility] Comment on above: Performed By: #### L [id number] #### [facility] ([facility]) [address] [place] [address] Hematocrit (Bld) [Volume fraction] 34.2 % Low 36.0-48.0 [facility] Comment on above: Performed By: #### L [id number] #### [facility] ([facility]) [address] [place] [address] Hemoglobin (Bld) [Mass/Vol] 11.2 g/dL Low 12.0-15.0 [facility] Comment on above: Performed By: #### L [id number] #### [facility] ([facility]) [address] [facility] [address] Immature granulocytes (Bld) [#/Vol] 0.01 10*3/uL Normal 0.00-0.20 [facility] Comment on above: Performed By: #### L [id number] #### [facility] [address] [place] [address] Immature granulocytes/100 WBC (Bld) 0.2 % Normal 0.0-1.0 [facility] Comment on above: Performed By: #### L [id number] #### [facility] [address] [place] [address] Lymphocytes (Bld) [#/Vol] 2.37 10*3/uL Normal 1.20-4.00 [facility] Comment on above: Performed By: #### L [id number] #### [facility] ([facility]) [address] [place] [address] Lymphocytes/100 WBC (Bld) 37.8 % Normal 20.0-45.0 [facility] Comment on above: Performed By: #### L [id number] #### [facility] ([facility]) [address] [place] [address] MCH (RBC) [Entitic mass] 27.4 pg Normal 27.0-33.0 [facility] Comment on above: Performed By: #### L [id number] #### [facility] ([facility]) [address] [place] [address] MCV (RBC) [Entitic vol] 83.6 fL Normal 82.0-98.0 [facility] Comment on above: Performed By: #### L [id number] #### [facility] [address] [place] [address] Monocytes (Bld) [#/Vol] 0.43 10*3/uL Normal 0.10-1.00 [facility] Comment on above: Performed By: #### L [id number] #### [facility] [address] [place] [address] Monocytes/100 WBC (Bld) 6.9 % Normal 5.0-12.0 [facility] Comment on above: Performed By: #### L [id number] #### [facility] ([facility]) [address] [place] [address] Neutrophils (Bld) [#/Vol] 3.20 10*3/uL Normal 1.60-7.60 [facility] Comment on above: Performed By: #### L [id number] #### [facility] ([facility]) [address] [place] [address] Neutrophils/100 WBC (Bld) 51.0 % Normal 40.0-72.0 [facility] Comment on above: Performed By: #### L [id number] #### [facility] ([facility]) [address] [place] [address] NRBC (PER 100 WBCS) BY AUTOMATED COUNT 0.0 % Normal 0 [facility] Comment on above: Performed By: #### L [id number] #### [facility] ([facility]) [address] [place] [address] PLATELETS (10*3/UL) IN BLOOD AUTOMATED COUNT 223 10*3/uL Normal 150-400 [facility] Comment on above: Performed By: #### L [id number] #### [facility] ([facility]) [address] [place] [address] RBC (Bld) [#/Vol] 4.09 10*6/uL Normal 3.80-5.00 [facility] Comment on above: Performed By: #### L [id number] #### [facility] ([facility]) [address] [place] [address] WBC (Bld) [#/Vol] 6.27 10*3/uL Normal 4.00-10.60 [facility] Comment on above: Performed By: #### L [id number] #### [facility] ([facility]) [address] [place] [address] MAGNESIUMon 07-12-2024 Magnesium [Mass/Vol] 1.7 mg/dL Low 1.9-2.7 [facility] Comment on above: Performed By: #### L [id number] #### [facility] ([facility]) [address] [place] [address] POCT GLUCOSE METER UNSOLICIT ED RESULTSon 07-12-2024 Glucose [Mass/Vol] 102 mg/dL Normal 70-105 [facility] Comment on above: Order Comment: Waive d Testing in the ED is performed under the ED CLIA certificate #[id number]. Result Comment: shod [email or web address] Performed By: #### L [id number] ####[facility] ([facility])[address] [place] [address] TROPONIN Ion 07-12-2024 Troponin I.cardiac [Mass/Vol] 0.01 ng/mL Normal 0.00-0.04 [facility] Comment on above: Performed By: #### L [id number] #### [facility] ([facility]) [address] [place] [address] 30on 07-11-2024 30 The patient is Moderately [...] and maintained or improved Outcome: Progressing Normal [facility] 30 The patient is [...] to address these barriers include . Normal [facility] ALDOSTERONEon 07-11-2024 ALDOSTERONE (NG/DL) IN SER/PLAS 4.9 ng/dL Normal [facility] Comment [...] reference intervals for this test in the [facility] Test Directory (SNOBSWAP). Performed By: [employer] [address] [place] [address] General Helper: Navneet Simeon MD, PhD CLIA Number: [id number] Performed By: #### L [id number] ####[facility] ([facility])[address] [place] [address] ANTI-XA (HEPARIN LEVEL)on HEPARIN UNFRACTIONATED (U/ML) IN PPP BY CHROMOGENIC METHOD 0.42 IU/mL Normal 0.3-0.7 [facility] Comment on above: Order Comment: Check anti-Xa level every 6 hours while on heparin infusion, or per protocol. Result Comment: [place] roxaban and Apixaban will interfere with the anti Xa assay used to monitor UFH and LMWH. Performed By: #### L [id number] #### [facility] ([facility]) [address] [place] [address] HEPARIN UNFRACTIONATED (U/ML) IN PPP BY CHROMOGENIC METHOD 0.20 IU/mL Low 0.3-0.7 [facility] Comment on above: Order Comment: Check anti-Xa level every 6 hours while on heparin infusion, or per protocol. Result Comment: [place] roxaban and Apixaban will interfere with the anti Xa assay used to monitor UFH and LMWH. Performed By: #### L [id number] #### [facility] ([facility]) [address] [place] [address] APTTon 07-11-2024 ACTIVATED PARTIAL THROMBOPLASTIN TIME IN PPP BY COAGULATION ASSAY 43.0 Seconds High 25.0-35.0 [facility] Comment on above: Result Comment: Clin ical significance of the APTT is questionable in the presence of heparin. Performed By: #### L [id number] #### [facility] (BEAKER) [address] [place] [address] BASIC METABOLIC PANELon 08-2 0-2023 Anion gap [Moles/Vol] 9 mmol/L Normal 7-20 [facility] Comment on above: Performed By: #### L [id number] ####[facility] (BEAKER)[address] [place] [address] Calcium [Mass/Vol] 8.8 mg/dL Normal 8.6-10.3 [facility] Comment on above: Performed By: #### L [id number] ####[facility] (BEAKER)[address] [place] [address] Chloride [Moles/Vol] 108 mmol/L High 98-107 [facility] Comment on above: Performed By: #### L [id number] ####[facility] (BEAKER)[address] [place] [address] CO2 [Moles/Vol] 28 mmol/L Normal 21-31 [facility] Comment on above: Performed By: #### L [id number] ####[facility] (BEAKER)[address] [place] [address] Creatinine [Mass/Vol] 1.09 mg/dL Normal 0.60-1.20 [facility] Comment on above: Performed By: #### L [id number] ####[facility] [place] [address] GLOMERULAR FILTRATION RATE ML/MIN/1.73 SQ M.PREDICTED 58.2 mL/min/1.73m*[address]0 [facility] Comment on above: Result Comment: The [facility]???s estimated glomerular filtration rate [...] of individuals. Performed By: #### L [id number] ####[facility] ([facility])[address] [place] [address] Glucose [Mass/Vol] 113 mg/dL High 70-100 [facility] Comment on above: Performed By: #### L [id number] ####[facility] ([facility])[address] [place] [address] Potassium [Moles/Vol] 3.4 mmol/L Low 3.5-5.1 [facility] Comment on above: Performed By: #### L [id number] ####[facility] ([facility])[address] [place] [address] Sodium [Moles/Vol] 142 mmol/L Normal 136-145 [facility] Comment on above: Performed By: #### L [id number] ####[facility] ([facility])[address] [place] [address] Urea nitrogen [Mass/Vol] 14 mg/dL Normal 7-25 [facility] Comment on above: Performed By: #### L [id number] ####[facility] ([facility])[address] [place] [address] UREA NITROGEN/CREATININE (MASS RATIO) IN SER/PLAS 12.8 Normal [facility] Comment on above: Performed By: #### L [id number] ####[facility] ([facility])[address] [place] [address] CBC WITH AUTO DIFFERENTIALon 07-11-2024 Basophils (Bld) [#/Vol] 0.04 10*3/uL Normal 0.00-0.20 [facility] Comment on above: Performed By: #### L [id number] ####[facility] ([facility])[address] [place] [address] Basophils/100 WBC (Bld) 0.6 % Normal 0.0-1.0 [facility] Comment on above: Performed By: #### L [id number] ####[facility] (BEAKER)[address] [place] [address] Eosinophils (Bld) [#/Vol] 0.16 10*3/uL Normal 0.00-0.50 [facility] Comment on above: Performed By: #### L [id number] ####[facility] (BEAKER)[address] [place] [address] Eosinophils/100 WBC (Bld) 2.2 % Normal 0.0-6.0 [facility] Comment on above: Performed By: #### L [id number] ####[facility] ([facility])[address] [place] [address] Erythrocyte distribution width (RBC) [Ratio] 14.6 % Normal 11.5-15.0 [facility] Comment on above: Performed By: #### L [id number] ####[facility] ([facility])[address] [place] [address] ERYTHROCYTE MEAN CORPUSCULAR HEMOGLOBIN CONCENTRATION (G/DL) BY AUTOMATED 32.0 g/dL Normal 32.0-35.0 [facility] Comment on above: Performed By: #### L [id number] ####[facility] ([facility])[address] [place] [address] Hematocrit (Bld) [Volume fraction] 36.2 % Normal 36.0-48.0 [facility] Comment on above: Performed By: #### L [id number] ####[facility] ([facility] [place] [address] Hemoglobin (Bld) [Mass/Vol] 11.6 g/dL Low 12.0-15.0 [facility] Comment on above: Performed By: #### L [id number] ####[facility] ([facility] [place] [address] Immature granulocytes (Bld) [#/Vol] 0.02 10*3/uL Normal 0.00-0.20 [facility] Comment on above: Performed By: #### L [id number] ####[facility] (BEAKER)[address] [place] [address] Immature granulocytes/100 WBC (Bld) 0.3 % Normal 0.0-1.0 [facility] Comment on above: Performed By: #### L [id number] ####[facility] (BEAKER)[address] [place] [address] Lymphocytes (Bld) [#/Vol] 2.34 10*3/uL Normal 1.20-4.00 [facility] Comment on above: Performed By: #### L [id number] ####[facility] (BEAKER)[address] [place] [address] Lymphocytes/100 WBC (Bld) 32.6 % Normal 20.0-45.0 [facility] Comment on above: Performed By: #### L [id number] ####[facility] (BEAKER)[address] [place] [address] MCH (RBC) [Entitic mass] 27.2 pg Normal 27.0-33.0 [facility] Comment on above: Performed By: #### L [id number] ####[facility] (BEAKER)[address] [place] [address] MCV (RBC) [Entitic vol] 85.0 fL Normal 82.0-98.0 [facility] Comment on above: Performed By: #### L [id number] ####[facility] (BEAKER)[address] [place] [address] Monocytes (Bld) [#/Vol] 0.49 10*3/uL Normal 0.10-1.00 [facility] Comment on above: Performed By: #### L [id number] ####[facility] (BEAKER)[address] [place] [address] Monocytes/100 WBC (Bld) 6.8 % Normal 5.0-12.0 [facility] Comment on above: Performed By: #### L [id number] ####[facility] (BEAKER)[address] [place] [address] Neutrophils (Bld) [#/Vol] 4.13 10*3/uL Normal 1.60-7.60 [facility] Comment on above: Performed By: #### L [id number] ####[facility] ([facility])[address] [place] [address] Neutrophils/100 WBC (Bld) 57.5 % Normal 40.0-72.0 [facility] Comment on above: Performed By: #### L [id number] ####[facility] ([facility])[address] [place] [address] NRBC (PER 100 WBCS) BY AUTOMATED COUNT 0.0 % Normal 0 [facility] Comment on above: Performed By: #### L [id number] ####[facility] ([facility])[address] [place] [address] PLATELETS (10*3/UL) IN BLOOD AUTOMATED COUNT 245 10*3/uL Normal 150-400 [facility] Comment on above: Performed By: #### L [id number] ####[facility] ([facility])[address] [place] [address] RBC (Bld) [#/Vol] 4.26 10*6/uL Normal 3.80-5.00 [facility] Comment on above: Performed By: #### L [id number] ####[facility] ([facility])[address] [place] [address] WBC (Bld) [#/Vol] 7.18 10*3/uL Normal 4.00-10.60 [facility] Comment on above: Performed By: #### L [id number] ####[facility] ([facility])[address] [place] [address] CONSULTon 07-11-2024 CONSULT -- Attestation signed by [...] Brown is the endocrine surgeon in the [place] area that would be most appropriate and [...] [place] Cardiology and endocrine surgery and endocrinology eMseret Mac MD Cardiology Consult Note Reason for Consult: Chest pain HPI: Aby Madrigal is a 59 y.o. female patient is presenting as a transfer from [place] for the evaluation of chest pain. Past [...] Value Ventricular Rate 56 Atrial Rate 56 PA Interval 180 QRS DURATION 94 QT Interval 430 QTC (more content not included)... Normal [facility] EDPROVon 07-11-2024 EDPROV HPI [...] Pt states she was trasnfered here from [place] to be transferred to cardiology. Pt states she had a cardiac stent placed last week. She denies fever, coughing, vomiting, abdominal pain. She admits diarrhea. She felt better when given ativan and worse when she was given morphine. She has had her gallbladder removed. History provided by: Patient management and budget analyst used: No Chest Pain Associated symptoms: no abdominal pain, no cough, no fever and no vomiting [place] Coma Scale Score: 15 Patient History Past [...] signing this emergency patient record, the Emergency Physician/BRAKE REPAIRER AIR/PA-C attests that all entries made into the electronic medical record by the scribe prior to the Physician/BRAKE REPAIRER AIR/PA-C signature reflect an accurate accounting of the evaluation and care rendered by that Emergency Physician/BRAKE REPAIRER AIR/PA-C. The Emergency Physician/BRAKE REPAIRER AIR/PA-C assumes full responsibility for those entries. The Emergency Physician/BRAKE REPAIRER AIR/PA-C also attests that any patient testing or treatment that was instituted by nursing staff. Normal [facility] EDPROV HPI Chief Complaint [...] Pt states she was trasnfered here from [place] to be transferred to cardiology. Pt states she had a cardiac stent placed last week. She denies fever, coughing, vomiting, abdominal pain. She admits diarrhea. She felt better when given ativan and worse when she was given morphine. She has had her gallbladder removed. History provided by: Patient management and budget analyst used: No Chest Pain Associated symptoms: no abdominal pain, no cough, no fever and no vomiting [place] Coma Scale Score: 15 Patient History Past Medical History: Diagnosis Date Abnormal ECG Diabetes mellitus ([facility]) Hyperlipidemia Hypertension Obstructive sleep apnea Panic attacks Stroke ([facility]/HCC) Past Surgical History: Procedure Laterality Date CEREBRAL [...] MDM ED Course as of 07/11/24 1256 Jul 11, 2024 1041 Cardiology consulted [AT] ED Course User Index [AT] Federica Anderson MD Diagnoses as of 07/11/24 1256 NSTEMI (non-ST elevated myocardial infarction) ([facility]) Medical Decision Making Amount and/or Complexity of Data Reviewed Labs: ordered. Decision-making details documented in ED Course. ECG/medicine tests: ordered and independent interpretation performed. Decision-making details documented in ED Course. Risk Drug therapy requiring intensive monitoring for toxicity. Decision regarding hospitalization. Minor surgery with identified risk factors. Basilia Butts (more content not included)... Invalid Interpretation Code [facility] POCT GLUCOSE METER UNSOLICIT ED RESULTSon 07-11-2024 Glucose [Mass/Vol] 122 mg/dL High 70-105 [facility] Comment on above: Order Comment: [place] d Testing in the ED is performed under the ED CLIA certificate #[id number]. Result Comment: [email or web address] Performed By: #### L [id number] #### [facility] ([employer]) [address] [place] [address] PROTIME-INRon 07-11-2024 INR IN PPP BY COAGULATION ASSAY 1.00 Normal 0.90-1.10 [facility] Comment on [...] CHEST 1995;[id number]. Performed By: #### L [id number] ####[facility])[address] [place] [address] PROTHROMBIN TIME (PT) IN PPP BY COAGULATION ASSAY 13.2 Seconds Normal 12.3-14.8 [facility] Comment on above: Performed By: #### L [id number] ####[facility] [employer])[address] [place] [address] RENIN ACTIVITYon 07-11-2024 RENIN ACTIVITY <0.1 Normal [facility] Comment [...] developed and its performance characteristics determined by [employer]. It has not been cleared or approved by the [place] Food and Drug Administration. This test was performed in a CLIA certified laboratory and is intended for clinical purposes. Performed By: [employer] [address] [place] [address] General Helper: Navneet Simeon MD, PhD CLIA Number: [id number] Performed By: #### L [id number] ####[facility] ([facility])[address] [place] [address] TROPONIN Ion 07-11-2024 Troponin I.cardiac [Mass/Vol] 0.01 ng/mL Normal 0.00-0.04 [facility] Comment on above: Performed By: #### L [id number] #### [facility] (BEAKER) [address] [place] [address] Office Visiton 07-10-2024 Follow-up visit [id number] Aby Madrigal 1965 F Date Provider Department Center 07/10/2024 [id number] VAZQUEZ RIAZ [facility] Family History Problem Relation Age of Onset Lung cancer Mother No Known Problems Father Lung cancer Sister Family Status - Relation Status Age at Mother Father Sister Level of Service:72658 PA OFFICE/OUTPATIENT ESTABLISHED MOD MDM 30 MIN Reason for Visit and Comments: Coronary Artery Disease [187] Post-Cath [731] Normal [facility] 36on 07-03-2024 36 Post Discharge Call Good morning, I am Ginny Garcia, RN a lead nurse from [facility]. I am calling you to follow [...] Patient Name Aby Madrigal Date 07/03/24 Normal [facility] Telephoneon 07-03-2024 Telephone [id number] Aby Madrigal 1965 F Date Provider Department Center 07/03/2024 GINNY MALONEY [facility] Family History Problem Relation Age of Onset Lung cancer Mother No Known Problems Father Lung cancer Sister Family Status - Relation Status Age at Mother Father Sister Reason for Visit and Comments: Hospital Follow-up [832] Normal [facility] 30on 07-01-2024 30 The [...] and maintained or improved Outcome: Progressing Normal [facility] BASIC METABOLIC PANELon 06-22 Anion gap [Moles/Vol] 14 mmol/L Normal 7-20 [facility] Comment on above: Performed By: #### L [id number] #### [facility] (BEAKER) [address] [place] [address] Calcium [Mass/Vol] 8.2 mg/dL Low 8.6-10.3 [facility] Comment on above: Performed By: #### L [id number] #### [facility] (BEAKER) [address] [place] [address] Chloride [Moles/Vol] 106 mmol/L Normal 98-107 [facility] Comment on above: Performed By: #### L [id number] #### [facility] (BEAKER) [address] [place] [address] CO2 [Moles/Vol] 25 mmol/L Normal 21-31 [facility] Comment on above: Performed By: #### L [id number] #### [facility] ([facility]) [address] [place] [address] Creatinine [Mass/Vol] 0.91 mg/dL Normal 0.60-1.20 [facility] Comment on above: Performed By: #### L [id number] #### [facility] ([facility]) [address] [place] [address] GLOMERULAR FILTRATION RATE ML/MIN/1.73 SQ M.PREDICTED 72.2 mL/min/1.73m*2 Normal >60.0 [facility] Comment on above: Result Comment: The [facility]???s estimated glomerular filtration rate [...] individuals. Performed By: #### L [id number] #### [facility] ([facility]) [address] [place] [address] Glucose [Mass/Vol] 101 mg/dL High 70-100 [facility] Comment on above: Performed By: #### L [id number] #### [facility] ([facility]) [address] [place] [address] Potassium [Moles/Vol] 3.5 mmol/L Normal 3.5-5.1 [facility] Comment on above: Performed By: #### L [id number] #### [facility] ([facility]) [address] [place] [address] Sodium [Moles/Vol] 141 mmol/L Normal 136-145 [facility] Comment on above: Performed By: #### L [id number] #### [facility] (BEAKER) [address] [place] [address] Urea nitrogen [Mass/Vol] 13 mg/dL Normal 7-25 [facility] Comment on above: Performed By: #### L [id number] #### [facility] ([facility] [address] [place] [address] UREA NITROGEN/CREATININE (MASS RATIO) IN SER/PLAS 14.3 Normal [facility] Comment on above: Performed By: #### L [id number] #### [facility] ([facility]) [address] [address] CBCon 07-01-2024 Erythrocyte distribution width (RBC) [Ratio] 15.4 % High 11.5-15.0 [facility] Comment on above: Performed By: #### L [id number] ####[facility] ([facility])[address] [place] [address] ERYTHROCYTE MEAN CORPUSCULAR HEMOGLOBIN CONCENTRATION (G/DL) BY AUTOMATED 32.1 g/dL Normal 32.0-35.0 [facility] Comment on above: Performed By: #### L [id number] ####[facility] ([facility])[address] [place] [address] Hematocrit (Bld) [Volume fraction] 38.6 % Normal 36.0-48.0 [facility] Comment on above: Performed By: #### L [id number] ####[facility] ([facility])[address] [place] [address] Hemoglobin (Bld) [Mass/Vol] 12.4 g/dL Normal 12.0-15.0 [facility] Comment on above: Performed By: #### L [id number] ####[facility] ([facility])[address] [place] [address] MCH (RBC) [Entitic mass] 26.9 pg Low 27.0-33.0 [facility] Comment on above: Performed By: #### L [id number] ####[facility] ([facility])[address] [place] [address] MCV (RBC) [Entitic vol] 83.7 fL Normal 82.0-98.0 [facility] Comment on above: Performed By: #### L [id number] ####[facility] ([facility])[address] [place] [address] PLATELETS (10*3/UL) IN BLOOD AUTOMATED COUNT 238 10*3/uL Normal 150-400 [facility] Comment on above: Performed By: #### L [id number] ####[facility] ([facility])[address] [place] [address] RBC (Bld) [#/Vol] 4.61 10*6/uL Normal 3.80-5.00 [facility] Comment on above: Performed By: #### L [id number] ####[facility] ([facility])[address] [place] [address] WBC (Bld) [#/Vol] 7.04 10*3/uL Normal 4.00-10.60 [facility] Comment on above: Performed By: #### L [id number] ####[facility] ([facility])[address] [place] [address] LIPID PANELon 07-01-2024 CHOL/HDL 3.8 mg/dL Normal [facility] Comment on above: Performed By: #### L [id number] #### [facility] ([facility] [address] [place] [address] Cholesterol [Mass/Vol] 128 mg/dL Normal 120-200 [facility] Comment on above: Performed By: #### L [id number] #### [facility] (BEAKER) [address] [place] [address] Magnesium [Mass/Vol] 87 mg/dL Normal 40-149 [facility] Comment on above: Result Comment: TRIG LYCERIDE REFERENCE RANGE: 20 YEARS AND OLDER CARDIOVASCULAR RISK LESS THAN 150 mg/dL LOW RISK 150 TO 199 mg/dL BORDERLINE RISK 200 mg/dL AND GREATER HIGH RISK Performed By: #### L [id number] #### [facility] ([facility] [address] [place] [address] Magnesium [Mass/Vol] 77 mg/dL Normal 0-160 [facility] Comment on above: Performed By: #### L [id number] #### [facility] ([facility]) [address] [place] [address] Magnesium [Mass/Vol] 34 mg/dL Normal 23-92 [facility] Comment on above: Performed By: #### L [id number] #### [facility] ([facility]) [address] [place] [address] NON HDL CHOL. (LDL+VLDL) 94 Normal [facility] Comment on above: Performed By: #### L [id number] #### [facility] ([facility]) [address] [place] [address] TOTAL VLDL-C 17 mg/dL Normal 0-40 [facility] Comment on above: Performed By: #### L [id number] #### [facility] ([facility]) [address] [place] [address] MAGNESIUMon 07-01-2024 Magnesium [Mass/Vol] 2.0 mg/dL Normal 1.9-2.7 [facility] Comment on above: Performed By: #### L [id number] ####[facility] ([facility])[address] [place] [address] NURSNOTEon 07-01-2024 NURSNOTE Discharge instructio ns given, reviewed, questions, answered, signed, copy received. Normal [facility] POCT GLUCOSE METER UNSOLICIT ED RESULTSon 07-01-2024 Glucose [Mass/Vol] 124 mg/dL High 70-105 [facility] Comment on above: Order Comment: Waive d Testing in the ED is performed under the ED CLIA certificate #[id number]. Result Comment: [email or web address] Performed By: #### L [id number] #### [facility] ([facility]) [address] [place] [address] Glucose [Mass/Vol] 106 mg/dL High 70-105 [facility] Comment on above: Order Comment: Waive d Testing in the ED is performed under the ED CLIA certificate #[id number]. Result Comment: [email or web address] Performed By: #### L [id number] #### [facility] ([facility]) [address] [facility] [place] [address] TROPONIN Ion 07-01-2024 Troponin I.cardiac [Mass/Vol] 0.09 ng/mL High 0.00-0.04 [facility] Comment on above: Performed By: #### L [id number] #### [facility] ([employer]) [address] [place] [address] 30on 06-30-2024 30 The patient is Moderately Stable - Low risk of patient condition declining or worsening The patient's goals for the shift include comfort, rest The clinical goals for the shift include stable vitals, comfort Problem: Pain - Adult Goal: Verbalizes/displays adequate comfort level or baseline comfort level Outcome: Not Progressing Normal [facility] 30 Daily Case Managemen [...] PT Recommendations: OT Recommendations: New Consults: Normal [facility] 30 The patient is Moderately Stable - Low risk of patient condition declining or worsening The patient's goals for the shift include COMFORT The clinical goals for the shift include VSS Over the shift, the patient did not make progress toward the following goals. Barriers to progression include . Recommendations to address these barriers include . Normal [facility] ANTI-XA (HEPARIN LEVEL)on HEPARIN UNFRACTIONATED (U/ML) IN PPP BY CHROMOGENIC METHOD 0.64 IU/mL Normal 0.3-0.7 [facility] Comment on above: Order Comment: Check anti-Xa level every 6 hours while on heparin infusion, or per protocol. Result Comment: Radha roxaban and Apixaban will interfere with the anti Xa assay used to monitor UFH and LMWH. Performed By: #### L [id number] ####[facility] ([facility])[address] [place] [address] BASIC METABOLIC PANELon 08- Anion gap [Moles/Vol] 11 mmol/L Normal 7-20 [facility] Comment on above: Performed By: #### L [id number] #### [facility] ([facility]) [address] [place] [address] Calcium [Mass/Vol] 8.3 mg/dL Low 8.6-10.3 [facility] Comment on above: Performed By: #### L [id number] #### [facility] ([facility] [address] [place] [address] Chloride [Moles/Vol] 110 mmol/L High 98-107 [facility] Comment on above: Performed By: #### L [id number] #### [facility] ([facility]) [address] [place] [address] CO2 [Moles/Vol] 26 mmol/L Normal 21-31 [facility] Comment on above: Performed By: #### L [id number] #### [facility] ([facility]) [address] [place] [address] Creatinine [Mass/Vol] 0.81 mg/dL Normal 0.60-1.20 [facility] Comment on above: Performed By: #### L [id number] #### [facility] ([facility] [address] [place] [address] GLOMERULAR FILTRATION RATE ML/MIN/1.73 SQ M.PREDICTED 83.1 mL/min/1.73m*2 Normal >60.0 [facility] Comment on above: Result Comment: The [facility]???s estimated glomerular filtration rate [...] individuals. Performed By: #### L [id number] #### [facility] ([facility]) [address] [place] [address] Glucose [Mass/Vol] 110 mg/dL High 70-100 [facility] Comment on above: Performed By: #### L [id number] #### [facility] ([facility]) [address] [place] [address] Potassium [Moles/Vol] 3.7 mmol/L Normal 3.5-5.1 [facility] Comment on above: Performed By: #### L [id number] #### [facility] ([facility]) [address] [facility] [address] Sodium [Moles/Vol] 143 mmol/L Normal 136-145 [facility] Comment on above: Performed By: #### L [id number] #### [facility] ([facility]) [address] [place] [address] Urea nitrogen [Mass/Vol] 10 mg/dL Normal 7-25 [facility] Comment on above: Performed By: #### L [id number] #### [facility] ([facility]) [address] [place] [address] UREA NITROGEN/CREATININE (MASS RATIO) IN SER/PLAS 12.3 Normal [facility] Comment on above: Performed By: #### L [id number] #### [facility] ([facility]) [address] [place] [address] CBCon 06-30-2024 Erythrocyte distribution width (RBC) [Ratio] 15.3 % High 11.5-15.0 [facility] Comment on above: Performed By: #### L [id number] #### [facility] [address] [place] [address] ERYTHROCYTE MEAN CORPUSCULAR HEMOGLOBIN CONCENTRATION (G/DL) BY AUTOMATED 31.3 g/dL Low 32.0-35.0 [facility] Comment on above: Performed By: #### L [id number] #### [facility] [address] [place] [address] Hematocrit (Bld) [Volume fraction] 36.7 % Normal 36.0-48.0 [facility] Comment on above: Performed By: #### L [id number] #### [facility] [address] [place] [address] Hemoglobin (Bld) [Mass/Vol] 11.5 g/dL Low 12.0-15.0 [facility] Comment on above: Performed By: #### L [id number] #### [facility] [address] [place] [address] MCH (RBC) [Entitic mass] 26.9 pg Low 27.0-33.0 [facility] Comment on above: Performed By: #### L [id number] #### [facility] (BEAKER) [address] [place] [address] MCV (RBC) [Entitic vol] 85.7 fL Normal 82.0-98.0 [facility] Comment on above: Performed By: #### L [id number] #### [facility] (BEAKER) [address] [place] [address] PLATELETS (10*3/UL) IN BLOOD AUTOMATED COUNT 243 10*3/uL Normal 150-400 [facility] Comment on above: Performed By: #### L [id number] #### [facility] (BEAKER) [address] [place] [address] RBC (Bld) [#/Vol] 4.28 10*6/uL Normal 3.80-5.00 [facility] Comment on above: Performed By: #### L [id number] #### [facility] (BEAKER) [address] [place] [address] WBC (Bld) [#/Vol] 7.41 10*3/uL Normal 4.00-10.60 [facility] Comment on above: Performed By: #### L [id number] #### [facility] ([facility]) [address] [place] [address] CONSULTon 06-30-2024 CONSULT Cardiology Consult Note Reason for Consult: NSTEMI, transfer from [place] HPI: Aby Madrigal, a 59 y.o. female patient, is transferred from [place] for continuity of care. Past medical history includes: HTN History of TIA DMII HLD SURESH Overweight Patient reports that 3 days ago, she woke up in the mid of the night with indigestion, and a feeling fullness, but no pressure like chest pain. She presented to [facility], where she was found to [...] Value Ventricular Rate 71 Atrial Rate 71 PA Interval 176 QRS DURATION 92 QT Interval 424 QTC CALCULATION(BAZETT) 460 P Jarratt 52 R-Jarratt 19 T Wave Jarratt 164 Impression Normal sinus rhythm Left ventricular [...] Normal sinu (more content not included)... Normal [facility] HPon 06-30-2024 H&P reviewed. The patient was examined and there are no changes to the H&P. 59 y.o. year old female with a PMHx significant for DM2, hypertension presents a direct mission from [place] with a chief complaint of chest pain [...] to proceed. Signed, Yris Oakley MD PGY-4 Meat Puller Pager: [phone] [facility] POCT GLUCOSE METER UNSOLICIT ED RESULTSon 06-30-2024 Glucose [Mass/Vol] 170 mg/dL High 70-105 [facility] Comment on above: Order Comment: Waive d Testing in the ED is performed under the ED CLIA certificate #[id number]. Result Comment: [email or web address] Performed By: #### L [id number] #### [facility] ([facility]) [address] [place] [address] Glucose [Mass/Vol] 129 mg/dL High 70-105 [facility] Comment on above: Order Comment: Waive d Testing in the ED is performed under the ED CLIA certificate #[id number]. Result Comment: carolyn tcher Performed By: #### L [id number] ####[facility] ([facility])[address] [place] [address] Glucose [Mass/Vol] 167 mg/dL High 70-105 [facility] Comment on above: Order Comment: Waive d Testing in the ED is performed under the ED CLIA certificate #[id number]. Result Comment: [email or web address] Performed By: #### L [id number] #### [facility] ([facility]) [address] [place] [address] TROPONIN Ion 06-30-2024 Troponin I.cardiac [Mass/Vol] 0.07 ng/mL High 0.00-0.04 [facility] Comment on above: Performed By: #### L [id number] #### [facility] ([facility]) [address] [place] [address] Troponin I.cardiac [Mass/Vol] 0.10 ng/mL High 0.00-0.04 [facility] Comment on above: Performed By: #### L [id number] #### [facility] ([facility]) [address] [place] [address] Troponin I.cardiac [Mass/Vol] 0.11 ng/mL Critically high 0.00-0.04 [facility] Comment on above: Result Comment: MMICHELLE CARR INITIAL CRITICAL HIGH; RESPUN AND RETESTED Performed By: #### L [id number] #### [facility] ([facility]) [address] [place] [address] 30on 06-29-2024 30 The patient is Moderately Stable - Low risk of patient condition declining or worsening The patient's goals for the shift include COMFORT The clinical goals for the shift include VSS Normal [facility] APTTon 06-29-2024 ACTIVATED PARTIAL THROMBOPLASTIN TIME IN PPP BY COAGULATION ASSAY 34.5 Seconds Normal 25.0-35.0 [facility] Comment on above: Order Comment: Basel ine aPTT before initiating heparin infusion. Result Comment: Clin ical significance of the APTT is questionable in the presence of heparin. Performed By: #### L [id number] #### [facility] ([facility]) [address] [place] [address] B-TYPE NATRIURETIC PEPTIDEon 06-29-2024 Natriuretic peptide B (Bld) [Mass/Vol] 222 pg/mL High 0-100 [facility] Comment on above: Performed By: #### L [id number] #### [facility] ([facility]) [address] [place] [address] CBC WITH AUTO DIFFERENTIALon 06-29-2024 Basophils (Bld) [#/Vol] 0.05 10*3/uL Normal 0.00-0.20 [facility] Comment on above: Performed By: #### L [id number] #### [facility] ([facility]) [address] [place] [address] Basophils/100 WBC (Bld) 0.6 % Normal 0.0-1.0 [facility] Comment on above: Performed By: #### L [id number] #### [facility] ([facility]) [address] [place] [address] Eosinophils (Bld) [#/Vol] 0.18 10*3/uL Normal 0.00-0.50 [facility] Comment on above: Performed By: #### L [id number] #### [facility] (BEAKER) [address] [place] [address] Eosinophils/100 WBC (Bld) 2.1 % Normal 0.0-6.0 [facility] Comment on above: Performed By: #### L [id number] #### [facility] ([facility] [address] [place] [address] Erythrocyte distribution width (RBC) [Ratio] 14.9 % Normal 11.5-15.0 [facility] Comment on above: Performed By: #### L [id number] #### [facility] ([facility]) [address] [place] [place] [address] ERYTHROCYTE MEAN CORPUSCULAR HEMOGLOBIN CONCENTRATION (G/DL) BY AUTOMATED 32.9 g/dL Normal 32.0-35.0 [facility] Comment on above: Performed By: #### L [id number] #### [facility] ([facility]) [address] [place] [address] Hematocrit (Bld) [Volume fraction] 35.9 % Low 36.0-48.0 [facility] Comment on above: Performed By: #### L [id number] #### [facility] ([facility] [address] [address] Hemoglobin (Bld) [Mass/Vol] 11.8 g/dL Low 12.0-15.0 [facility] Comment on above: Performed By: #### L [id number] #### [facility] ([facility] [address] [place] [address] Immature granulocytes (Bld) [#/Vol] 0.03 10*3/uL Normal 0.00-0.20 [facility] Comment on above: Performed By: #### L [id number] #### [facility] (BEAKER) [address] [place] [address] Immature granulocytes/100 WBC (Bld) 0.3 % Normal 0.0-1.0 [facility] Comment on above: Performed By: #### L [id number] #### [facility] ([facility] [address] [place] [address] Lymphocytes (Bld) [#/Vol] 2.02 10*3/uL Normal 1.20-4.00 [facility] Comment on above: Performed By: #### L [id number] #### [facility] ([facility]) [address] [place] [address] Lymphocytes/100 WBC (Bld) 23.5 % Normal 20.0-45.0 [facility] Comment on above: Performed By: #### L [id number] #### [facility] ([facility]) [address] [place] [address] MCH (RBC) [Entitic mass] 27.2 pg Normal 27.0-33.0 [facility] Comment on above: Performed By: #### L [id number] #### [facility] ([facility]) [address] [place] [address] MCV (RBC) [Entitic vol] 82.7 fL Normal 82.0-98.0 [facility] Comment on above: Performed By: #### L [id number] #### [facility] ([facility]) [address] [place] [address] Monocytes (Bld) [#/Vol] 0.56 10*3/uL Normal 0.10-1.00 [facility] Comment on above: Performed By: #### L [id number] #### [facility] ([facility]) [address] [place] [address] Monocytes/100 WBC (Bld) 6.5 % Normal 5.0-12.0 [facility] Comment on above: Performed By: #### L [id number] #### [facility] ([facility] [address] [place] [address] Neutrophils (Bld) [#/Vol] 5.74 10*3/uL Normal 1.60-7.60 [facility] Comment on above: Performed By: #### L [id number] #### [facility] ([facility]) [address] [place] [address] Neutrophils/100 WBC (Bld) 67.0 % Normal 40.0-72.0 [facility] Comment on above: Performed By: #### L [id number] #### [facility] ([facility]) [address] [place] [address] NRBC (PER 100 WBCS) BY AUTOMATED COUNT 0.0 % Normal 0 [facility] Comment on above: Performed By: #### L [id number] #### [facility] ([facility]) [address] [place] [address] PLATELETS (10*3/UL) IN BLOOD AUTOMATED COUNT 233 10*3/uL Normal 150-400 [facility] Comment on above: Performed By: #### L [id number] #### [facility] ([facility]) [address] [place] [address] RBC (Bld) [#/Vol] 4.34 10*6/uL Normal 3.80-5.00 [facility] Comment on above: Performed By: #### L [id number] #### [facility] ([facility]) [address] [place] [address] WBC (Bld) [#/Vol] 8.58 10*3/uL Normal 4.00-10.60 [facility] Comment on above: Performed By: #### L [id number] #### [facility] ([facility]) [address] [place] [address] COMPREHENSIVE METABOLIC PANE Alec 06-29-2024 Albumin [Mass/Vol] 3.8 g/dL Normal 3.5-5.7 [facility] Comment on above: Performed By: #### L [id number] #### [facility] ([facility]) [address] [place] [address] ALP [Catalytic activity/Vol] 64 U/L Normal 34-104 [facility] Comment on above: Performed By: #### L [id number] #### [facility] ([facility] [address] [place] [address] ALT [Catalytic activity/Vol] 35 U/L Normal 7-52 [facility] Comment on above: Performed By: #### L [id number] #### [facility] ([facility] [address] [place] [address] Anion gap [Moles/Vol] 12 mmol/L Normal 7-20 [facility] Comment on above: Performed By: #### L [id number] #### [facility] ([facility]) [address] [place] [address] AST [Catalytic activity/Vol] 21 U/L Normal 13-39 [facility] Comment on above: Performed By: #### L [id number] #### [facility] ([facility]) [address] [place] [address] Bilirubin [Mass/Vol] 0.4 mg/dL Normal 0.3-1.0 [facility] Comment on above: Performed By: #### L [id number] #### [facility] ([facility]) [address] [place] [address] Calcium [Mass/Vol] 8.5 mg/dL Low 8.6-10.3 [facility] Comment on above: Performed By: #### L [id number] #### [facility] ([facility]) [address] [place] [address] Chloride [Moles/Vol] 112 mmol/L High 98-107 [facility] Comment on above: Performed By: #### L [id number] #### [facility] ([facility]) [address] [place] [address] CO2 [Moles/Vol] 22 mmol/L Normal 21-31 [facility] Comment on above: Performed By: #### L [id number] #### [facility] [address] [place] [address] Creatinine [Mass/Vol] 0.92 mg/dL Normal 0.60-1.20 [facility] Comment on above: Performed By: #### L [id number] #### [facility] ([facility]) [address] [place] [address] GLOMERULAR FILTRATION RATE ML/MIN/1.73 SQ M.PREDICTED 71.3 mL/min/1.73m*2 Normal >60.0 [facility] Comment on above: Result Comment: [facility]???s estimated glomerular filtration rate [...] individuals. Performed By: #### L [id number] #### [facility] ([facility]) [address] [place] [address] Glucose [Mass/Vol] 108 mg/dL High 70-100 [facility] Comment on above: Performed By: #### L [id number] #### [facility] ([facility]) [address] [place] [address] Potassium [Moles/Vol] 3.7 mmol/L Normal 3.5-5.1 [facility] Comment on above: Performed By: #### L [id number] #### [facility] ([facility]) [address] [place] [address] Protein [Mass/Vol] 6.1 g/dL Normal 6.0-8.3 [facility] Comment on above: Performed By: #### L [id number] #### [facility] ([facility]) [address] [place] [address] Sodium [Moles/Vol] 142 mmol/L Normal 136-145 [facility] Comment on above: Performed By: #### L [id number] #### [facility] ([facility]) [address] [place] [address] Urea nitrogen [Mass/Vol] 11 mg/dL Normal 7-25 [facility] Comment on above: Performed By: #### L [id number] #### [facility] ([facility]) [address] [place] [address] UREA NITROGEN/CREATININE (MASS RATIO) IN SER/PLAS 12.0 Normal [facility] Comment on above: Performed By: #### L [id number] #### [facility] ([facility]) [address] [place] [address] MAGNESIUMon 06-29-2024 Magnesium [Mass/Vol] 1.7 mg/dL Low 1.9-2.7 [facility] Comment on above: Performed By: #### L [id number] #### [facility] ([facility]) [address] [facility] [place] [address] PHOSPHORUSon 06-29-2024 Magnesium [Mass/Vol] 2.9 mg/dL Normal 2.5-5.0 [facility] Comment on above: Performed By: #### L [id number] #### [facility] ([facility]) [address] [place] [address] PROTIME-INRon 06-29-2024 INR IN PPP BY COAGULATION ASSAY 0.99 Normal 0.90-1.10 [facility] Comment on [...] RANGE. CHEST 1995;108:231S-246S. Performed By: #### L [id number] #### [facility] ([facility]) [address] [place] [address] PROTHROMBIN TIME (PT) IN PPP BY COAGULATION ASSAY 13.1 Seconds Normal 12.3-14.8 [facility] Comment on above: Performed By: #### L [id number] #### [facility] ([facility]) [address] [place] [address] TROPONIN Ion 06-29-2024 Troponin I.cardiac [Mass/Vol] 0.10 ng/mL High 0.00-0.04 [facility] Comment on above: Performed By: #### L [id number] #### [facility] ([facility]) [address] [place] [address] Office Visiton 06-21-2024 Follow-up visit [id number] Aby Madrigal 1965 F Date Provider Department Center 06/21/2024 GOMEZ KENDALL [facility] Family History Problem Relation Age of Onset Lung cancer Mother No Known Problems Father Lung cancer Sister Family Status - Relation Status Age at Mother Father Sister Level of Service:88090 PA OFFICE/OUTPATIENT ESTABLISHED MOD MDM 30 MIN Normal [facility] Office Visiton 05-26-2024 Follow-up visit [id number] Sanjana Madrigalty S 1965 F Date Provider Department Center 05/26/2024 BIJAN LAWLER [facility] Family History Problem Relation Age of Onset Lung cancer Mother No Known Problems Father Lung cancer Sister Family Status - Relation Status Age at Mother Father Sister Level of Service:47761 PA OFFICE/OUTPATIENT NEW MODERATE MDM 45 MINUTES Normal [facility] Outside Colonoscopyon 2022 Outside Colonoscopy [id number] 0CD:127 Normal [facility] Reminderson 11-27-2022 Reminders - From: Na Hayes LPN To: N - Clinical; Sent: 11/27/2022 12:46:10 EST Show up: 10/25/2032 07:00:00 EST Subject: colonoscopy recall Due Date/Time: 11/25/2032 07:00:00 EST Reminder/Recall Patient is due for screening colonoscopy 11/25/2032. Normal [facility] Lab Reportson 11-24-2022 Lab Reports [id number]#1.0 0CD:127 Normal [facility]-24 SARS-CoV-2 (COVID-19) RNA BECK+probe Ql (Unsp spec) Not detected Normal NOT DETECTED [facility] [place] Comment on above: Result Comment: This test is not yet approved or cleared by the [place] FDA. When there are no FDA-approved or cleared tests available, and other criteria are met, FDA can make tests available under an emergency access mechanism called an Emergency Use Authorization (EUA). The EUA for this test is supported by the [place] of Health and Human Service's (HHS's) declaration [...] Performed By: #### C [facility] #### [facility] [address] [place] [address] Dr. Rich Cutler Consent for Procedure/Surger yon 10-07-2022 Consent for Procedure/Surgery [id number] 0CD:127 Normal [facility] Ambulatory Visit Summaryon 1 1-15-2022 Ambulatory Visit Summary ABY MADRIGAL :1965 Visit [...] : DR KENDRA MORAN . 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 Tech Note: Incompetent SFJ and GSV. Patent varicose vein mid/med calf 2.9mm with 0s reflux. Patent varicose vein prox/post calf 3.8mm with 0s reflux. Patent varicose vein dist/med thigh 3.8mm with 2.0s reflux. CONCLUSION: 1. Mild right and wpfd-gv-fhtlmxex left great saphenous vein venous insufficiency with dilatation 2. Left saphenous popliteal junction reflux 3. Mild left anterior accessory saphenous vein venous insufficiency without dilatation 4. Small bilateral incompetent varicose veins Dictated by: Adelia Lezama MD on 10/02/2022 at 13:36 Approved by: Adelia Lezama MD on 10/02/2022 at 13:52 Normal [facility] ECHOCARDIO M/2D COMPLETEon 1 11-30-2021 ECHOCARDIO M/2D COMPLETE Patient: ABY MADRIGAL Exam Date: 09/30/2022 : 1965 Gender:F Ordering : DR KENDRA MORAN . Admission #: [id number] Family : Order #: [id number] CLICK HERE TO VIEW EXAM ECHOCARDIOGRAM REPORT [...] M.D. on 09/30/2022 at 18:37 Normal [facility] BNPon 09-24-2022 Natriuretic peptide B (Bld) [Mass/Vol] 501.0 pg/mL Normal <=900.0 [facility] [place] Comment on above: Performed By: #### C ALEXANDERTBH #### [facility] [address] [place] [address] Dr. Rich Cutler CBC AUTO DIFFon 09-24-2022 BASO # 0.1 103/ul Normal 0.0-0.1 [facility] Comment on above: Performed By: #### C VDTBH #### [facility] [address] [place] [address] Dr. Rich Cutler Basophils/100 WBC (Bld) 0.8 % Normal 0.2-2.0 [facility] Comment on above: Performed By: #### C VDTBH #### [facility] [address] [place] [address] Dr. Rich Cutler EO # 0.3 103/ul Normal 0.0-0.7 [facility] Comment on above: Performed By: #### C VDTBH #### [facility] [address] [place] [address] Dr. Rich Cutler Eosinophils/100 WBC (Bld) 3.4 % Normal 0.9-7.0 [facility] Comment on above: Performed By: #### C VDTBH #### [facility] [address] [place] [address] Dr. Rich Cutler Erythrocyte distribution width (RBC) [Ratio] 13.3 % Normal 11.0-15.0 [facility] Comment on above: Performed By: #### C VDTBH #### [facility] [address] [place] [address] Dr. Rich Cutler Hematocrit (Bld) [Volume fraction] 40.5 % Normal 36.0-48.0 [facility] Comment on above: Performed By: #### C VDTBH #### [facility] [address] [place] [address] Dr. Rich Cutler Hemoglobin (Bld) [Mass/Vol] 13.1 g/dL Normal 12.0-16.0 [facility] Comment on above: Performed By: #### C VDTBH #### [facility] [address] [place] [address] Dr. Rich Cutler IG # 0.02 10e3/ul Normal 0.00-0.03 [facility] Comment on above: Performed By: #### C VDTBH #### [facility] [address] [place] [address] Dr. Rich Cutler IG % 0.3 % Normal 0.0-0.5 [facility] Comment on above: Performed By: #### C VDTBH #### [facility] [address] [place] [address] Dr. Rich Cutler LYMPH # 2.7 103/ul Normal 1.2-3.8 [facility] Comment on above: Performed By: #### C VDTBH #### [facility] [address] [place] [address] Dr. Rich Cutler Lymphocytes/100 WBC (Bld) 35.4 % Normal 20.5-60.0 [facility] Comment on above: Performed By: #### C VDTBH #### [facility] [address] [place] [address] Dr. Rich Cutler MANUAL DIFF REQ NO Normal [facility] Comment on above: Performed By: #### C VDTBH #### [facility] [address] [place] [address] Dr. Rich Cutler MCH (RBC) [Entitic mass] 28.2 pg Normal 26.7-34.0 [facility] Comment on above: Performed By: #### C VDTBH #### [facility] [address] [place] [address] Dr. Rich Cutler MCHC (RBC) [Mass/Vol] 32.3 g/dL Normal 29.9-35.2 [facility] Comment on above: Performed By: #### C VDTBH #### [facility] [address] [place] [address] Dr. Rich Cutler MCV (RBC) [Entitic vol] 87.3 fL Normal 81.0-99.0 [facility] Comment on above: Performed By: #### C VDTBH #### [facility] [address] [place] [address] Dr. Rich Cutler MONO # 0.5 103/ul Normal 0.3-0.8 [facility] Comment on above: Performed By: #### C VDTBH #### [facility] [address] [place] [address] Dr. Rich Cutler Monocytes/100 WBC (Bld) 6.5 % Normal 1.7-12.0 [facility] Comment on above: Performed By: #### C VDTBH #### [facility] [address] [place] [address] Dr. Rich Cutler NEUT # 4.1 103/ul Normal 1.4-6.5 [facility] Comment on above: Performed By: #### C VDTBH #### [facility] [address] [place] [address] Dr. Rich Cutler Neutrophils/100 WBC (Bld) 53.6 % Normal 43.0-75.0 [facility] Comment on above: Performed By: #### C VDTBH #### [facility] [address] [place] [address] Dr. Rich Cutler Platelet mean volume (Bld) [Entitic vol] 10.3 fL Normal 9.5-13.5 [facility] Comment on above: Performed By: #### C VDTBH #### [facility] [address] [place] [address] Dr. Rich Cutler PLT 283 103/ul Normal 150-450 [facility] Comment on above: Performed By: #### C VDTBH #### [facility] [address] [place] [address] Dr. Rich Cutler RBC 4.64 106/ul Normal 4.20-5.40 [facility] Comment on above: Performed By: #### C VDTBH #### [facility] [address] [place] [address] Dr. Rich Cutler WBC 7.6 103/ul Normal 4.0-11.0 [facility] Comment on above: Performed By: #### C VDTBH #### [facility] [address] [place] [address] Dr. Rich Cutler INSULINon 09-24-2022 Insulin 15.1 uIU/mL Normal 2.6-24.9 [facility] Comment on above: Performed By: #### C VDTBH #### [facility] [address] [place] [address] Dr. Rich Cutler PROF 14(COMP METB)on 022 Albumin [Mass/Vol] 3.5 g/dL Normal 3.4-5.0 [facility] Comment on above: Performed By: #### C VDTBH #### [facility] [address] [place] [address] Dr. Rich Ctuler Albumin/Globulin [Mass ratio] 1.0 {ratio} Normal [facility] Comment on above: Performed By: #### C VDTBH #### [facility] [address] [place] [address] Dr. Rich Cutler ALP [Catalytic activity/Vol] 91 U/L Normal 46-116 [facility] Comment on above: Performed By: #### C VDTBH #### [facility] [address] [place] [address] Dr. Rich Cutler ALT [Catalytic activity/Vol] 47 U/L Normal 14-59 [facility] Comment on above: Performed By: #### C VDTBH #### [facility] [address] [place] [address] Dr. Rich Cutler Anion gap [Moles/Vol] 11.7 mmol/L Normal [facility] Comment on above: Performed By: #### C VDTBH #### [facility] [address] [address] [address] Rich Cutler AST [Catalytic activity/Vol] 24 U/L Normal 15-37 [facility] Comment on above: Performed By: #### C VDTBH #### [facility] [address] [address] [address] Rich Cutler Bilirubin [Mass/Vol] 0.2 mg/dL Normal 0.2-1.0 [facility] Comment on above: Performed By: #### C VDTBH #### [facility] [address] [address] [address] Rich Cutler Calcium [Mass/Vol] 8.9 mg/dL Normal 8.5-10.1 [facility] Comment on above: Performed By: #### C VDTBH #### [facility] [address] [address] [address] Rich Cutler Chloride [Moles/Vol] 105 mmol/L Normal 98-107 [facility] Comment on above: Performed By: #### C VDTBH #### [facility] [address] [address] [address] Rich Cutler CO2 [Moles/Vol] 28.1 mmol/L Normal 21.0-32.0 [facility] Comment on above: Performed By: #### C VDTBH #### [facility] [address] [address] [address] Rich Cutler Creatinine [Mass/Vol] 1.13 mg/dL Critically high 0.55-1.02 [facility] Comment on above: Performed By: #### C VDTBH #### [facility] [address] [address] [address] Rich Cutler EGFR-AF MAURITIAN 60 mL/min/1.73m2 Normal >=60 [facility] Comment on above: Performed By: #### C VDTBH #### [facility] [address] [address] [address] Rich Cutler EGFR-NON AF MAURITIAN 49 mL/min/1.73m2 Critically low >=60 [facility] Comment on above: Performed By: #### C VDTBH #### [facility] [address] [address] [address] iRch Cutler Globulin (S) [Mass/Vol] 3.5 g/dL Normal [facility] Comment on above: Performed By: #### C VDTBH #### [facility] [address] [address] [address] Rich Cutler Glucose [Mass/Vol] 119 mg/dL Critically high 74-106 [facility] Comment on above: Performed By: #### C VDTBH #### [facility] [address] [address] [address] Rich Cutler Potassium [Moles/Vol] 3.8 mmol/L Normal 3.5-5.1 [facility] Comment on above: Performed By: #### C VDTBH #### [facility] [address] [address] [address] Rich Cutler Protein [Mass/Vol] 7.0 g/dL Normal 6.4-8.2 [facility] Comment on above: Performed By: #### C VDTBH #### [facility] [address] [address] [address] Rich Cutler Sodium [Moles/Vol] 141 mmol/L Normal 136-145 [facility] Comment on above: Performed By: #### C VDTBH #### [facility] [address] [address] [address] Rich Cutler Urea nitrogen [Mass/Vol] 16.0 mg/dL Normal 7.0-18.0 [facility] Comment on above: Performed By: #### C VDTBH #### [facility] [address] [address] [address] Rich Cutler Urea nitrogen/Creatinine [Mass ratio] 14.2 mg/mg Normal [facility] Comment on above: Performed By: #### C VDTBH #### [facility] [address] [address] [address] Rich Cutler TROPONIN, HIGH SENSITIVITYon 09-24-2022 HSTROP 10.6 pg/mL Normal 4.0-51.3 [facility] Comment on above: Result Comment: CUT- OFF POINTS HAVE BEEN ESTABLISHED BASED ON THE FOURTH UNIVERSAL DEFINITIONS OF MYOCARDIAL INFARCTION. THE UPPER REFERENCE LIMIT (URL) OF TROPONIN, DEFINED THE 99TH PERCENTILE OF cTnI DISTRIBUTION IN A REFERENCE POPULATION, HAS BEEN CONFIRMED THE DECISION THRESHOLD FOR OK DIAGNOSIS. Performed By: #### C VDTB #### [facility] [address] [address] [address] Rich Cutler XR CHEST 1 Von [...] [facility] Date: 2022-09-24 04:08 Normal [facility] AUTO DIFFon 09-23-2022 BASO # 0.1 103/ul Normal 0.0-0.1 [facility] Comment on above: Performed By: #### C BC #### [facility] [address] [place] [address] Dr. Rich Cutler Basophils/100 WBC (Bld) 0.8 % Normal 0.2-2.0 [facility] Comment on above: Performed By: #### C BC #### [facility] [address] [place] [address] Dr. Rich Cutler EO # 0.2 103/ul Normal 0.0-0.7 [facility] Comment on above: Performed By: #### C BC #### [facility] [address] [place] [address] Dr. Rich Cutler Eosinophils/100 WBC (Bld) 3.5 % Normal 0.9-7.0 [facility] Comment on above: Performed By: #### C BC #### [facility] [address] [place] [address] Dr. Rich Cutler Erythrocyte distribution width (RBC) [Ratio] 13.4 % Normal 11.0-15.0 [facility] Comment on above: Performed By: #### C BC #### [facility] [address] [place] [address] Dr. Rich Cutler Hematocrit (Bld) [Volume fraction] 42.3 % Normal 36.0-48.0 [facility] Comment on above: Performed By: #### C BC #### [facility] [address] [place] [address] Dr. Rich Cutler Hemoglobin (Bld) [Mass/Vol] 13.4 g/dL Normal 12.0-16.0 [facility] Comment on above: Performed By: #### C BC #### [facility] [address] [place] [address] Dr. Rich Cutler IG # 0.03 10e3/ul Normal 0.00-0.03 [facility] Comment on above: Performed By: #### C BC #### [facility] [address] [place] [address] Dr. Rich Cutler IG % 0.5 % Normal 0.0-0.5 [facility] Comment on above: Performed By: #### C BC #### [facility] [address] [place] [address] Dr. Rich Cutler LYMPH # 2.9 103/ul Normal 1.2-3.8 [facility] Comment on above: Performed By: #### C BC #### [facility] [address] [place] [address] Dr. Rich Cutler Lymphocytes/100 WBC (Bld) 44.0 % Normal 20.5-60.0 [facility] Comment on above: Performed By: #### C BC #### [facility] [address] [place] [address] Dr. Rich Cutler MANUAL DIFF REQ NO Normal [facility] Comment on above: Performed By: #### C BC #### [facility] [address] [place] [address] Dr. Rich Cutler MCH (RBC) [Entitic mass] 28.4 pg Normal 26.7-34.0 [facility] Comment on above: Performed By: #### C BC #### [facility] [address] [place] [address] Dr. Rich Cutler MCHC (RBC) [Mass/Vol] 31.7 g/dL Normal 29.9-35.2 [facility] Comment on above: Performed By: #### C BC #### [facility] [address] [place] [address] Dr. Rich Cutler MCV (RBC) [Entitic vol] 89.6 fL Normal 81.0-99.0 [facility] Comment on above: Performed By: #### C BC #### [facility] [address] [place] [address] Dr. Rich Cutler MONO # 0.4 103/ul Normal 0.3-0.8 [facility] Comment on above: Performed By: #### C BC #### [facility] [address] [place] [address] Dr. Rich Cutler Monocytes/100 WBC (Bld) 6.6 % Normal 1.7-12.0 [facility] Comment on above: Performed By: #### C BC #### [facility] [address] [place] [address] Dr. Rich Cutler NEUT # 2.9 103/ul Normal 1.4-6.5 [facility] Comment on above: Performed By: #### C BC #### [facility] [address] [place] [address] Dr. Rich Cutler Neutrophils/100 WBC (Bld) 44.6 % Normal 43.0-75.0 [facility] Comment on above: Performed By: #### C BC #### [facility] [address] [place] [address] Dr. Rich Cutler Platelet mean volume (Bld) [Entitic vol] 11.0 fL Normal 9.5-13.5 [facility] Comment on above: Performed By: #### C BC #### [facility] [address] [place] [address] Dr. Rich Cutler PLT 272 103/ul Normal 150-450 [facility] Comment on above: Performed By: #### C BC #### [facility] [address] [place] [address] Dr. Rich Cutler RBC 4.72 106/ul Normal 4.20-5.40 [facility] Comment on above: Performed By: #### C BC #### [facility] [address] [place] [address] Dr. Rich Cutler WBC 6.5 103/ul Normal 4.0-11.0 [facility] Comment on above: Performed By: #### C BC #### [facility] [address] [place] [address] Dr. Rich Cutler FREE THYROXINE INDEX T7on FTI 2.16 Normal 1.30-4.50 [facility] Comment on above: Performed By: #### L IPID, TSH, T7, CMP #### [facility] [address] [place] [address] Dr. Rich Cutler T3U 30.0 % Normal 30.0-39.0 [facility] Comment on above: Performed By: #### L IPID, TSH, T7, CMP #### [facility] [address] [place] [address] Dr. Rich Cutler T4 [Mass/Vol] 7.20 ug/dL Normal 4.80-13.90 [facility] Comment on above: Performed By: #### L IPID, TSH, T7, CMP #### [facility] [address] [place] [address] Dr. Rich Cutler GLYCOHEMOGLOBIN A1Con 2021 ADA RECOMMENDATION SEE BELOW Normal [facility] Comment on above: Result Comment: ADA RECOMMENDED LIMIT 4.0 - 6.0 ADA THERAPEUTIC TARGET < 7.0 ACTION SUGGESTED > 7.0 Performed By: #### A 1C #### [facility] [address] [place] [address] Dr. Rich Cutler Glucose [Mass/Vol] 128 mg/dL Normal [facility] Comment on above: Performed By: #### A 1C #### [facility] [address] [address] [address] Rich Cutler HbA1c (Bld) [Mass fraction] 6.1 % Normal 4.5-6.2 [facility] Comment on above: Performed By: #### A 1C #### [facility] [address] [address] [address] Rich Cutler IRONon 09-23-2022 Iron [Mass/Vol] 64.0 ug/dL Normal 50.0-170.0 [facility] Comment on above: Performed By: #### C VDTBH #### [facility] [address] [address] [address] Rich Cutler LIPID PROFILEon 09-23-2022 CHOL-HDL RATIO NORM SEE BELOW Normal [facility] Comment on above: Result Comment: 3.3 - 4.4 LOW RISK 4.4 - 7.1 AVERAGE RISK 7.1 - 11.0 MODERATE RISK >11.0 HIGH RISK Performed By: #### L IPID, TSH, T7, CMP #### [facility] [address] [address] [address] Rich Cutler Cholesterol [Mass/Vol] 237 mg/dL Critically high <=200 [facility] Comment on above: Performed By: #### L IPID, TSH, T7, CMP #### [facility] [address] [address] [address] Rich Cutler Cholesterol in HDL [Mass/Vol] 44 mg/dL Normal 40-60 [facility] Comment on above: Performed By: #### L IPID, TSH, T7, CMP #### [facility] [address] [address] [address] Rich Cutler Cholesterol in LDL [Mass/Vol] 172.2 mg/dL Normal [facility] Comment on above: Performed By: #### L IPID, TSH, T7, CMP #### [facility] [address] [address] [address] Rich uCtler Cholesterol.total/C holesterol in HDL [Mass ratio] 5.4 {ratio} Normal [facility] Comment on above: Performed By: #### L IPID, TSH, T7, CMP #### [facility] [address] [address] [address] Rich Cutler HDL NORMAL > or = 60 mg/dl - LO W CARDIOVASCULAR RISK <40 mg/dl - HIGH CARDIOVASCULAR RISK Normal [facility] Comment on above: Performed By: #### L IPID, TSH, T7, CMP #### [facility] [address] [address] [address] Rich Cutler LDL CALC NORMAL SEE BELOW Normal [facility] Comment on above: Result Comment: <100 mg/dl OPTIMAL 100 - 129 mg/dl NEAR OR ABOVE OPTIMAL 130 - 159 mg/dl BORDERLINE HIGH 160 - 189 mg/dl HIGH >190 mg/dl VERY HIGH Performed By: #### L IPID, TSH, T7, CMP #### [facility] [address] [address] [address] Rich Cutler Triglyceride [Mass/Vol] 104 mg/dL Normal <=150 [facility] Comment on above: Performed By: #### L IPID, TSH, T7, CMP #### [facility] [address] [address] [address] Rich Cutler VLDL CALC 20.8 mg/dL Normal [facility] Comment on above: Performed By: #### L IPID, TSH, T7, CMP #### [facility] [address] [address] [address] Rich Cutler PROF 14(COMP METB)on 022 Albumin [Mass/Vol] 3.5 g/dL Normal 3.4-5.0 [facility] Comment on above: Performed By: #### L IPID, TSH, T7, CMP #### [facility] [address] [address] [address] Rich Cutler Albumin/Globulin [Mass ratio] 0.9 {ratio} Normal [facility] Comment on above: Performed By: #### L IPID, TSH, T7, CMP #### [facility] [address] [address] [address] Rich Ctuler ALP [Catalytic activity/Vol] 93 U/L Normal 46-116 [facility] Comment on above: Performed By: #### L IPID, TSH, T7, CMP #### [facility] [address] [address] [address] Rich Cutler ALT [Catalytic activity/Vol] 44 U/L Normal 14-59 [facility] Comment on above: Performed By: #### L IPID, TSH, T7, CMP #### [facility] [address] [place] [address] Dr. Rich Cutler Anion gap [Moles/Vol] 8.5 mmol/L Normal [facility] Comment on above: Performed By: #### L IPID, TSH, T7, CMP #### [facility] [address] [place] [address] Dr. Rich Cutler AST [Catalytic activity/Vol] 26 U/L Normal 15-37 [facility] Comment on above: Performed By: #### L IPID, TSH, T7, CMP #### [facility] [address] [place] [address] Dr. Rich Cutler Bilirubin [Mass/Vol] 0.3 mg/dL Normal 0.2-1.0 [facility] Comment on above: Performed By: #### L IPID, TSH, T7, CMP #### [facility] [address] [place] [address] Dr. Rich Cutler Calcium [Mass/Vol] 9.0 mg/dL Normal 8.5-10.1 [facility] Comment on above: Performed By: #### L IPID, TSH, T7, CMP #### [facility] [address] [place] [address] Dr. Rich Cutler Chloride [Moles/Vol] 106 mmol/L Normal 98-107 [facility] Comment on above: Performed By: #### L IPID, TSH, T7, CMP #### [facility] [address] [place] [address] Dr. Rich Cutler CO2 [Moles/Vol] 31.0 mmol/L Normal 21.0-32.0 [facility] Comment on above: Performed By: #### L IPID, TSH, T7, CMP #### [facility] [address] [address] [address] Rich Cutler Creatinine [Mass/Vol] 1.11 mg/dL Critically high 0.55-1.02 [facility] Comment on above: Performed By: #### L IPID, TSH, T7, CMP #### [facility] [address] [address] [address] Rich Cutler EGFR-AF MAURITIAN >60 Normal >=60 [facility] Comment on above: Performed By: #### L IPID, TSH, T7, CMP #### [facility] [address] [place] [address] Dr. Rich Cutler EGFR-NON AF MAURITIAN 50 mL/min/1.73m2 Critically low >=60 [facility] Comment on above: Performed By: #### L IPID, TSH, T7, CMP #### [facility] [address] [place] [address] Dr. Rich Cutler Globulin (S) [Mass/Vol] 3.7 g/dL Normal [facility] Comment on above: Performed By: #### L IPID, TSH, T7, CMP #### [facility] [address] [address] [address] Rich Cutler Glucose [Mass/Vol] 121 mg/dL Critically high 74-106 T [facility] Comment on above: Performed By: #### L IPID, TSH, T7, CMP #### [facility] [address] [address] [address] Rcih Cutler Potassium [Moles/Vol] 4.5 mmol/L Normal 3.5-5.1 [facility] Comment on above: Performed By: #### L IPID, TSH, T7, CMP #### [facility] [address] [address] [address] Rich Cutler Protein [Mass/Vol] 7.2 g/dL Normal 6.4-8.2 [facility] Comment on above: Performed By: #### L IPID, TSH, T7, CMP #### [facility] [address] [address] [address] Rich Cutler Sodium [Moles/Vol] 141 mmol/L Normal 136-145 [facility] Comment on above: Performed By: #### L IPID, TSH, T7, CMP #### [facility] [address] [address] [address] Rich Cutler Urea nitrogen [Mass/Vol] 16.0 mg/dL Normal 7.0-18.0 [facility] Comment on above: Performed By: #### L IPID, TSH, T7, CMP #### [facility] [address] [address] [address] Rich Cutler Urea nitrogen/Creatinine [Mass ratio] 14.4 mg/mg Normal [facility] Comment on above: Performed By: #### L IPID, TSH, T7, CMP #### [facility] [address] [address] [address] Rich Cutler TSHon 09-23-2022 TSH 3.915 uIU/mL Critically high 0.358-3.740 [facility] Comment on above: Performed By: #### L IPID, TSH, T7, CMP #### [facility] [address] [place] [address] Dr. Rich Cutler Physician Referralon 022 Physician Referral [phone] [id number] Normal [facility] Lipid Panelon 10-07-2021 Cholesterol [Mass/Vol] 205 mg/dL High 140-200 [facility] Comment on above: Result Comment: Chol less than 200 mg/dl low risk Chol 201-239 mg/dl borderline risk Chol 240 mg/dl and greater high risk Performed By: #### L IPID, [id number], TSH3 wRFLX #### [facility] [address] Cholesterol in HDL [Mass/Vol] 25 mg/dL Low 35-85 [facility] Comment on above: Result Comment: HDL CHOL ATP-III CLASSIFICATION Cardiovascular Risk HDL > or equal to 60 mg/dL LOW HDL < 40 mg/dL HIGH Performed By: #### L IPID, [id number], TSH3 wRFLX #### [facility] [address] Cholesterol.total/C holesterol in HDL [Mass ratio] 8.2 {ratio} Normal <5.0 [facility] Comment on above: Performed By: #### L IPID, [id number], TSH3 wRFLX #### [facility] [address] LDL Cholesterol,Calcula coby 160 mg/dL High 0-100 [facility] Comment on above: Result Comment: LDL ATP III CLASSIFICATION LDL less than 100 mg/dL Optimal LDL 100-129 mg/dL Near or above optimal LDL 130-159 mg/dL Borderline high LDL 160-189 mg/dL High LDL greater than 189 mg/dL Very high Performed By: #### L IPID, [id number], TSH3 wRFLX #### [address] Triglyceride w/Reflex 100 mg/dL Normal 35-149 [facility] Comment on above: Result Comment: TRIG ATP III CLASSIFICATION TRIG less than 150 mg/dL Normal TRIG 150-199 mg/dL Borderline high TRIG 200-500 mg/dL High TRIG greater than 500 mg/dL Very high Standard traceable to the Center for Disease Conrtrol and Prevention (CDC) test method. Performed By: #### L IPID, [id number], TSH3 wRFLX #### [address] VLDL CHOLESTEROL 20 mg/dL Normal [facility] Comment on above: Performed By: #### L IPID, [id number], TSH3 wRFLX #### [address] [id number] [place] Thyroid Stim Hormone w/Rflxo n 10-07-2021 Thyroid Stim Hormone w/Rflx 3.27 u[iU]/mL Normal 0.45-5.33 [facility] Comment on above: Performed By: #### L IPID, [id number], TSH3 wRFLX #### [address] [id number] [place] Vitamin D 25 Hydroxy Totalon 10-07-2021 Vitamin D 25 Hydroxy Total 26.5 ng/mL Low 30-100 [facility] Comment on above: Result Comment: JACKELINE MIN D STATUS 25(OH)VITAMIN D RANGE (ng/mL) Deficient <20 Insufficient 20 to <30 Sufficient 30 to 100 Reference: Lanny MF,Gino WILLIAMSON, Dyan VALENZUELA, et al. Evaluation,treatment, and prevention of vitamin D deficiency; an Endocrine Society clinical practice guideline. JCEM. 2010; 96(7):1911-30. PERFORMED BY: [place] [address] [employer] SILVESTRE SCHULER M.D. Performed By: #### L IPID, [id number], TSH3 wRFLX #### [address] Vital Signs Date Time Vital Sign Value Performing Clinician Deidre gagnon 10-06-2022 15:36-0500 Blood Pressure Location [facility] 10-06-2022 15:36-0500 Diastolic blood pressure 86 mm[Hg] [facility] [place] 10-06-2022 15:36-0500 Heart rate 72 /min [facility] [place] 10-06-2022 15:36-0500 Respiratory rate 16 /min [facility] [place] 10-06-2022 15:36-0500 Systolic blood pressure 126 mm[Hg] [facility] [place] Encounters Encounter Date Encounter Type Care Provider Facility Start: 01-09-2025 End: 01-09-2025 ambulatory [facility] Start: 01-02-2025 End: 01-02-2025 ambulatory HERMINIA JULIAN [facility] Start: 10-26-2024 End: 10-26-2024 ambulatory RICHA VIRAMONTES [facility] Start: 10-03-2024 End: 10-03-2024 ambulatory [facility] Start: 09-04-2024 End: 09-04-2024 ambulatory [facility] Start: 08-29-2024 End: 08-29-2024 ambulatory [facility] Start: 08-04-2024 End: 08-04-2024 ambulatory [facility] Start: 07-20-2024 ambulatory [facility] Start: 07-18-2024 ambulatory [facility] Start: 07-18-2024 End: 07-18-2024 Emergency department patient visit HERMINIA JULIAN [facility] Start: 07-18-2024 End: 07-18-2024 ambulatory [facility] Start: 07-11-2024 Evaluation and manag ement of inpatient [facility] Start: 07-11-2024 Emergency department patient visit FEDERICA ANDERSON [place] [facility] Start: 07-11-2024 End: 07-12-2024 [facility]: 07-10-2024 End: 07-10-2024 [facility]ulatory [facility] Start: 06-30-2024 Evaluation and manag ement of inpatient [facility] Start: 06-30-2024 Evaluation and manag ement of inpatient [facility] Start: 06-29-2024 End: 07-01-2024 Evaluation and management of inpatient KENDRA LEAGood [facility] Start: 06-21-2024 End: 06-21-2024 ambulatory [facility] Start: 05-26-2024 End: 05-26-2024 ambulatory [facility] Start: 11-26-2022 Encounter for preprocedural laboratory examination DR UMM LANDON . [facility] [place] Start: 11-25-2022 End: 11-26-2022 ambulatory Umm LANDON Facility:CD:[id number] Start: 11-20-2022 End: 11-21-[address] UMM LANDON . Facility: Start: 11-20-2022 End: 11-21-2022 Encounter for preprocedural laboratory examination DR UMM LANDON . Facility: Start: 10-06-2022 End: 10-07-2022 ambulatory Umm LANDON Facility:[facility] Start: 10-06-2022 End: 10-06-2022 Patient encounter procedure Umm Michael DIPESH General Surgery [facility] Start: 10-02-2022 End: 10-03-[address] KENDRA MORAN . Facility: Start: 09-30-2022 End: 10-01-[address] KENDRA MORAN . Facility: Start: 09-28-2022 Encounter for genera l adult medical examination without abnormal findings DR KENDRA MORAN . [facility] [place] Start: 09-24-2022 End: 09-24-[address] SYBIL CORDOVA . Facility: Start: 09-23-2022 End: 09-24-[address] KENDRA MORAN . Facility: Start: 09-23-2022 End: 09-24-2022 Encounter for general adult medical examination without abnormal findings DR KENDAR MORAN . Facility: Start: 09-14-[address] KENDRA MORAN . Facili ty:H1 Procedures Date Procedure Procedure Detail Performing Clinician Start: 10-26-2024 Follow-up visit Follow-up RICHA VIRAMONTES Start: 08-29-2019 Cystoscopic removal of ureteric stent Umm LANDON Bilateral tubal ligation Ad hael GEORGIEL Catheterization of l eft heart Umm LANDON Cholecystectomy Umm NILMami Cystoscopic insertio n of ureteric stent Umm JACQUESL Dilation and curetta ge of uterus Umm LANDON Vaginal hysterectomy Umm LANDON Immunizations Immunization Date Immunization Notes Care Provider Hailey slaughter 04-14-2021 SARS-CoV-2 (COVID-19 ) mRNA BNT-162b2 vax Umm JACQUESL [facility] [place] 03-11-2021 SARS-CoV-2 (COVID-19 ) mRNA BNT-162b2 vax Umm JACQUESL [facility] [place] Payers Date Payer Category Payer Medicaid [id number] 1965 Unknown [id number] 2.16.8 [id number] 1965 Unknown [id number] 2.16.8 [id number] 1965 Unknown [id number] 2.16.84 [id number] 1965 Unknown [id number] 2.16.84 [id number] 1965 Unknown [id number] 2.16.84 [id number] 1965 Unknown [id number] 2.16.84 [id number] 1965 Unknown [id number] 2.16.84 [id number] 1965 Unknown [id number] 2.16.84 [id number] 1965 Unknown [id number] 2.16.84 [id number] 1960 Self-pay [id number] 1960 Unknown [id number] Social History Date Type Detail Facility Start: 10-06-2022 Tobacco smoking status Ex-smoker (fi nding) [facility] [place] Tobacco smoking status Never [facility] [place] Sex Assigned At Female [facility] Functional Status Date Assessment Result Facility 10-06-2022 Functional Status N/A [facility] [place] Clinical Notes 10-11-2022 to 01-18-2025 Note Date & Type Note Facility 01-18-2025 Note Patient contacted of agueda, states she called [facility] Interventional [facility]iology to schedule the referral Dr. Christie had sent over, however no referral was received. Cylinder Press Operator faxed referral and recent visit note to [phone]. [facility] 01-09-2025 Note REASON FOR VISIT + H PI: [...] age 49, initially controlled with metoprolol - Jun 2019 CT A/P in [place], [place] performed for abd pain, incidentally detected [...] sided adrenal adenoma 2.8 cm, benign appearance. - Jan 02 2025: Saline Infusion Test --> renin undetectable, initial aldosterone at 8:22 AM 14.2, subsequent aldosterone at 12:28 PM 7.3. Per ENDO society recommendations, a cuttoff of >6 can be used if patient seated and cortisol lower than initial cortisol value (to exlude confounding ACTH effect). Interval History: She has been checking her BP 3 times a day. She recalls her BP spiked to 180 SBP during the SIT. She is currently taking Coreg 25 mg BID + Imdur 60 She has not been taking hydralazine unless SBP >170. She is also concerned hydralazine at night would drop her BP precipitously. Pt reports increasing frequency of headaches. Pt denies chest pain. REVIEW OF SYSTEMS Review of Systems Past Medical/Surgical History: Past Medical History: Diagnosis Date Abnormal ECG Diabetes mellitus (CMS/HCC) Hyperlipidemia Hypertension Obstructive sleep apnea Panic attacks Stroke ([facility]) Past Surgical History: Procedure Laterality Date CEREBRAL ANGIOGRAM CHOLECYSTECTOMY HYSTERECTOMY TUBAL LIGATION Social History /Family History: Social History Tobacco Use Smoking status: Former Current packs/day: 0.00 Average packs/day: 1 pack/day for 45.0 years (45.0 ttl pk-yrs) Types: Cigarettes Start date: 1976 Quit date: 2021 Years since quittin.1 Smokeless tobacco: Never Substance Use Topics Alcohol use: Not Currently Comment: Used to drink a lot on the weekend reports that she quit smoking about 3 years ago. Her smoking use included cigarettes. She started smoking about 48 years ago. She has a 45 pack-year smoking history. She has never used smokeless tobacco. She reports that she does not currently use alcohol. She reports that she does not use drugs. Family History Problem Relation Name Age of Onset Lung cancer Mother No Known Problems Father Lung cancer Sister Medications Current Outpatient Medications: albuterol (Ventolin HFA) 90 mcg/actuation inhaler, Inhale 2 puffs every 4 (four) hours if needed for wheezing or shortness of breath., Disp: 18 g, Rfl: 5 aspirin 81 mg EC tablet, Take 81 [...] the morning., Disp: , Rfl: LORazepam (Ativan) 1 mg tablet, TAKE 1 TABLET BY MOUTH THREE TIMES A DAY FOR 30 DAYS, Disp: , Rfl: metFORMIN (Glucophage) 500 mg tablet, Take 500 mg by mouth with breakfast and with evening meal., Disp: , Rfl: Protonix 40 mg EC tablet, Take 40 mg by mouth if needed each day., Disp: , Rfl: QUEtiapine (SEROquel) 100 mg tablet, Take 100 mg by mouth in the morning., Disp: , Rfl: rosuvastatin (Crestor) 40 mg tablet, Take 1 tablet (40 mg) by mouth in the morning., Disp: 30 tablet, Rfl: 0 isosorbide mononitrate ER (Imdur) 60 mg (more content not included)... [facility] 12-25-2024 Note Cylinder Press Operator spoke with Remington greene at [facility] regarding this patient. Tram said the way the order was placed through the system they just didn't see it, Tram assured food writer that patient was being scheduled at the secondary infusion location. Any questions or concerns call Tram at [phone]. JLR [facility] 10-26-2024 Note Attestation signed by Richa Viramontes MD at 10/27/2024 12:07 PM I have seen and examined the patient. I reviewed the resident/fellow note and I agree with the findings and plan. Richa Viramontes MD Interventional Pulmonary Medicine Pulmonary and Critical Care Medicine [facility] Visit Note Patient: Aby Madrigal Age: 59 y.o. : 1965 Account No.: [id number] Chief complaint: RML nodule HPI Aby Madrigal is a 59 y.o. female with hypertension, CAD status post PCI recently in June 2024, cigarette smoking who is presenting to IP clinic via telemedicine as a new patient after being referred by Dr. Jarocho Saldaña. Patient reports recent admission to [place] ICU for hypertensive emergency. 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 Repots having h/o exposure to formaldehyde. She has strong family history of lung cancer with both her sister and mother suffering from lung cancer. She denies any personal history of cancer. She has no PFTs on file. CTA chest 04/21/2024 at [facility]: Right middle lobe approximately 1.2 cm solid nodule appreciated Subsequent PET CT 2024 at [facility]: Right middle lobe nodule is faintly PET avid Of note she has an adrenal nodule 2 cm that was also faintly avid, was told that it's likely a myelolipoma? Her most recent TTE following PCI is nl with EF ~70% She was recently diagnosed with renal artery stenosis Interval History: Patient is doing well. She underwent PCI in June and is attending cardiac rehab. She reports intermittent SOB with exertion which attributes to her CAD. She underwent CT chest today to follow up on her nodule. She reports having intermittent cough an wheezing. She denies being on any inhalers. Social history: Former smoker quit 2 years ago Review of Systems: As per HPI Physical examination: Vitals: BP 135/67 (BP Location: Left arm, Patient Position: Sitting) Pulse 74 Temp 36.4 ???C (97.6 ???F) (Oral) Ht 1.6 m (5' 3 ) Wt 92.4 kg (203 lb 12.8 oz) SpO2 97% BMI 36.10 kg/m??? Constitutional: Vitals reviewed, HEENT: Normocephalic, Atraumatic, Moist oral mucosa Neck: Supple, No thyromegaly CV: Normal Rate and Rhythm, No murmur, No pedal edema Chest/Pulm: Normal respiratory effort, Lungs clear to auscultation Abdomen: Soft, No tenderness, No organomegaly Skin: Warm, No rash Neuro: Alert, can move all four extremities Labs Results: Lab Results Component Value Date HGB 11.2 (L) 07/12/2024 HGB 11.6 (L) 07/11/2024 HGB 12.4 07/01/2024 HCT 34.2 (L) 07/12/2024 HCT 36.2 07/11/2024 HCT 38.6 07/01/2024 WBC 6.27 07/12/2024 WBC 7.18 07/11/2024 WBC 7.04 07/01/2024 BUN 19 08/29/2024 BUN 11 07/12/2024 BUN 14 07/11/2024 CREATININE 0.95 08/29/2024 CREATININE 0.89 07/12/2024 CREATININE 1.09 07/11/2024 NA 141 08/29/2024 NA 142 07/12/2024 NA 142 07/11/2024 K 3.6 08/29/2024 K 3.4 (L) 07/12/2024 K 3.4 (L) 07/11/2024 CO2 28 08/29/2024 CO2 27 07/12/2024 CO2 28 07/11/2024 Radiology: No Chest X-ray results found for the past [address] abdomen pelvis w and wo IV contrast Result Date: 08/30/2024 Since 06/19/24: 1.Benign left adrenal 2.8 cm [...] Society Guidelines, Radiology 2017. Electronically signed: Marybeth Bryan. Assessment and Plan: Assessment: RML nodule 1.2 cm- stable, mildly PET avid Emphysema Former Smoker Plan: - Nodule looks stable on CT. Will follow up official read. Patient underwent Notify blood test with pretest probability of (more content not included)... [facility] 10-03-2024 Note REASON FOR VISIT + H [...] metoprolol - CT A/P Jun 2019 in [place], [place] performed for abd pain, incidentally detected [...] History: Diagnosis Date Abnormal ECG Diabetes mellitus ([facility]/HCC) Hyperlipidemia Hypertension Obstructive sleep apnea Panic attacks Stroke ([facility]) Past Surgical History: Procedure [...] 25 mg by (more content not included)... [facility] 09-04-2024 Note AL Cardiology - [facility] Subjective Aby Madrigal is a 59 y.o. year old female patient being seen for follow up [facility] in Jun 2024 for hypotension. She says [...] infarction) (CMS/HCC) Hypokalemia Coronary artery disease involving coquille coronary artery of coquille heart without angina pectoris Depression, major, severe [...] and V6. She was then admitted to [facility] on 07/11/2024 with NSTEMI. She underwent cardiac [...] and Affect: M (more content not included)... [facility] 07-20-2024 Note Attestation signed by [...] Age: 59 y.o. : 1965 Account No.: [id number] Referring physician: Dr. Jarocho Saldaña Chief complaint: RML nodule HPI Aby Madrigal is a 59 y.o. female with hypertension, CAD status post PCI recently in June 2024,, cigarette smoking who is presenting to clinic via telemedicine as a new patient after being referred by Dr. Jarocho Saldaña. Patient reports recent admission to [facility] for hypertensive emergency. This prompted a CT [...] PFTs on file. CTA chest 04/21/2024 at [facility]: Right middle lobe approximately 1 cm spiculated nodule appreciated Subsequent PET CT 2024 at [facility]: Right middle lobe nodule is faintly PET [...] alcohol. She reports (more content not included)... [facility] 07-18-2024 Note REASON FOR [...] metoprolol - CT A/P Jun 2019 in [place], [place] performed for abd pain, incidentally detected [...] Rfl: carvedilol (C (more content not included)... [facility] 07-18-2024 Note 07/18/24 1001 Referral Data Referral Source student worker Referral Reason Information Patient Information Primary Caregiver Self Activities of Daily Living Assistive Device Not applicable Living Arrangement (Current/Prior to Hospitalization) Private residence Behavior Oriented Discharge Planning Support Systems Children;Family members Type of Residence Private residence Patient's goal for discharge home Patient recently discharged from [facility] to home. Resides at home alone. Discharge plan is home. [facility] 07-18-2024 Note Patient sent to ED f or hypotension and dizziness/lightheadedness [facility] 07-12-2024 Note Hospital Medicine Discharge Summary Final Discharge Diagnosis: NSTEMI Admission Diagnosis: Hypokalemia [E87.6] NSTEMI (non-ST elevated myocardial infarction) (CMS/HCC) [I21.4] Hypertensive urgency [I16.0] Adenoma of left adrenal gland [D35.02] Resistant hypertension [I1A.0] Atherosclerosis of coquille coronary artery of coquille heart without angina pectoris [I25.10] Coronary artery disease involving coquille coronary artery of coquille heart with unstable angina pectoris (CMS/HCC) [I25.110] Type 2 diabetes mellitus without complication, without long-term current use of insulin (CMS/HCC) [E11.9] Hospital course: 59yoF with CAD s/p LAD SARKIS 11 days ago who was admitted to [facility] on 07/11 for chest pain. patient initially presented to [place] for uncomfortable feeling in her chest and was found to have elevated troponins and new ischemic changes on EKG. Infusion and cardiology was consulted transferred to [facility] for further evaluation. Initially the patient had blood pressures up to 192/65 for which home medications were restarted. Troponins at [facility] were negative and there [...] Center 07/18/2024 8:20 AM Feng Christie MD [facility] ENDOCR [facility] 07/20/2024 1:00 PM Richa Viramontes MD [facility] 09/05/2024 1:00 PM Bijan Licea MD [facility] [...] Medications These medications were sent to [facility]/pharmacy #[id number] [place], [place] - [address] [facility] [address] [facility] [address] isosorbide mononitrate ER 60 mg 24 hr [...] activity In process (more content not included)... [facility] 07-11-2024 Note 07/11/24 5147 Financial Resource Strain How hard is it [...] than 3 How often do you attend catholic or episcopal services? Never Do you belong to any clubs or organizations such as catholic groups, unions, fraternal or athletic groups, [...] In the past 12 months has the [employer], gas, oil, or water [employer] threatened to shut off services in your home? 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 Source student worker Referral Reason Psychosocial assessment Patient Information Primary Caregiver Self Accompanied by/Relationship Daughter (Rosita); Accjtahi-rh-njk (Yesy) Activities of Daily Living Assistive Device Not applicable Living Arrangement (Current/Prior to Hospitalization) Private residence (Lives at home by herself) Ambulation Independent Dressing Independent Feeding Independent Behavior Oriented (A&Ox4) Communication Can write;Talks;Understands speaking;Understands Turkish;Reads Income Information Income Source Unemployed (receives survivor benefits) Discharge Planning Support Systems Children;Family members (daughter, avwrpsqx-eo-qma, son) Type of Residence Private residence Will patient need Precert for Post Acute needs? No Patient's goal for discharge Home Does the patient need discharge transport arranged? No Completed social work assessment and SDoH screening. Patient was A&Ox4 at this time. Patient's daughter, Rosita, and patient's rcjbzcqo-pu-uev, Yesy, were currently present at bedside. Patient reported that she lives at home by herself and she identified her support system as her daughter, Rosita, her osmodfcw-md-eru, Yesy, and her son, Elie. Patient endorsed [...] any alcohol consumption or recreational drug use. [facility] 07-11-2024 Note Hospital Medicine History and Physical 07/11/2024 12:19 PM THE HOSPITALIST TEAM PREFERS TO USE [employer] FOR COMMUNICATION 7AM-7PM. IF I DO NOT RESPOND WITHIN 15 MINUTES, PLEASE PAGE ME/CALL THROUGH THE GROUP ROOMS COORDINATOR. FROM 7PM-7AM, PLEASE PAGE [phone](COVR) Chief Complaint Chief Complaint Patient presents with [...] presented to ER as a transfer from [place] for NSTEMI. Patient states that last night [...] Noted Hypokalemia 07/11/2024 Coronary artery disease involving coquille coronary artery of coquille heart with unstable angina pectoris ([facility]) 07/11/2024 Anxiety 06/30/2024 Type 2 diabetes mellitus without complication, without long-term current use of insulin ([facility]) 06/30/2024 Chest pain 06/30/2024 Elevated troponin 06/30/2024 Hypertensive urgency 06/30/2024 Hypomagnesemia 06/30/2024 QURESHI (dyspnea on exertion) 05/26/2024 Atherosclerosis of coquille coronary artery of coquille heart without angina pectoris 05/26/2024 Hyperlipidemia 05/26/2024 Murmur, heart 05/26/2024 Sepsis ([facility]) 07/14/2019 BV (bacterial vaginosis) 10/18/2017 GERD (gastroesophageal reflux disease) 10/18/2017 Essential hypertension 10/18/2017 TIA (transient ischemic attack) 10/18/2017 NSTEMI (non-ST elevated myocardial infarction) ([facility]) 06/29/2024 Assessment and Plan NSTEMI CAD, [...] for GI prophylaxis (more content not included)... [facility] 07-10-2024 Note [place] [facility] Note Reason for cardiology [...] Take 1 tablet (more content not included)... [facility] 07-01-2024 Note Hospital Medicine [...] hypertension, IBS presents a direct mission from [place] with a chief complaint of chest pain. [...] seen on her EKG. She went to [place] for the symptoms. Labs were completed showing [...] Center 07/10/2024 2:20 PM Bijan Licea MD [facility] Your medication list [...] Medications These medications were sent to [facility]/pharmacy #[id number] [facility], [place] - [address] [address] carvedilol 25 mg tablet cloNIDine 0.1 mg [...] days Lab Units (more content not included)... [facility] 07-01-2024 Note [facility] CARDIOLOGY INPAT IENT PROGRESS NOTE Reason for follow up: NSTEMI Subjective Aby Madrigal, a 59 y.o. female patient, is transferred from [place] for continuity of care. Patient reports that 3 days ago, she woke up in the mid of the night with indigestion, and a feeling fullness, but no pressure like chest pain. She presented to [facility], where she was found to [...] 0.56 06/29/2024 E (more content not included)... [facility] 06-30-2024 Note Patient: Aby antony Procedure Information Date/Time: 08/09/24 1600 Procedure: Coronary angiography (Bilateral) Location: [facility] 3 / [facility] (Cath) Providers: Brunilda Cuellar [...] Plan discussed with attending. Additional Equipment Requests [facility] 06-30-2024 Note 06/30/24 1446 Referral Data Referral Source student worker Referral Reason Follow up;Information Patient Information Primary Caregiver Self Accompanied by/Relationship daughters at bedside Activities of Daily Living Assistive Device Not applicable Living Arrangement (Current/Prior to Hospitalization) Private residence (three to four stairs) Ambulation Independent Dressing Independent Feeding Independent Behavior Oriented Communication Talks;Understands speaking;Understands Turkish Discharge Planning Support Systems Children (daughters will [...] questions for social work at this time. [facility] 06-30-2024 Note 06/30/24 1431 [...] Not Interested Does the patient have a field case manager assigned to them through their [...] to send link and activate MyChart? No [facility] 06-30-2024 Note Case was discussed w ith the SALVADOR on 06/29/2024. I agree with the history, physical, assessment, and plan of care. I discussed the findings and therapeutic plan. I agree with the documentation, except for any updates below. Maurice Nogueira MD [facility] 06-30-2024 Note Hospital Medicine History and Physical 06/30/2024 1:15 AM THE HOSPITALIST TEAM PREFERS TO USE [employer] CHAT FOR COMMUNICATION 7AM-7PM. IF I DO NOT RESPOND WITHIN 15 MINUTES, PLEASE PAGE ME/CALL THROUGH THE GROUP ROOMS COORDINATOR. FROM 7PM-7AM, PLEASE PAGE [phone](COVR) Chief Complaint Direct admission from [facility] with CP History of Present Illness Aby Madrigal is an 59 y.o. female who came from home with past medical history of anxiety, DM2, hypertension, IBS presents a direct mission from [place] with a chief complaint of chest pain. [...] seen on her EKG. She went to [place] for the symptoms. Labs were completed showing [...] without long-term current use of insulin ([facility]) 06/30/2024 Chest pain 06/30/2024 Elevated troponin 06/30/2024 Hypertensive urgency 06/30/2024 QURESHI (dyspnea on exertion) 05/26/2024 Atherosclerosis of coquille coronary artery of coquille heart without angina pectoris 05/26/2024 Hyperlipidemia 05/26/2024 Murmur, heart 05/26/2024 Sepsis ([facility]) 07/14/2019 BV (bacterial vaginosis) 10/18/2017 GERD (gastroesophageal reflux disease) 10/18/2017 Essential hypertension 10/18/2017 TIA (transient ischemic attack) 10/18/2017 Assessment and Plan Aby Madrigal is an 59 y.o. female who came from home with past medical history of anxiety, DM2, hypertension, IBS presents a direct mission from [place] with a chief complaint of chest pain. #Chest pain #Elevated troponin Troponin 0.1, will continue to trend -Patient continues to have mild chest discomfort upon arrival -Continue heparin drip -CXR negative for acute process at OSH -EKG showing normal sinus rhythm -N.p.o. for possible right and left cardiac cath in a.m. -Patient with new diastolic dysfunction on echoc (more content not included)... [facility] 06-21-2024 Note [place] Cardiology - [facility] Subjective Aby Madrigal is a 59 y.o. year old female patient being seen for follow up [facility] ED per Dr. Moran. She has [...] attack) QURESHI (dyspnea on exertion) Atherosclerosis of coquille coronary artery of coquille heart without angina pectoris Hyperlipidemia Murmur, heart [...] Judgment: Judgment no (more content not included)... [facility] 05-26-2024 Note [place] [facility] Note Reason for cardiology [...] PSYCH: appropriate mood, (more content not included)... [facility] 11-25-2022 Note OPERATIVE NOTE [...] 10 years. CC: Kendra Moran M.D. [facility] [place] 10-11-2022 Note Chief Complaint consultation for colonoscopy [...] Oral, (more content not included)... [facility] Comment on above: Result Comment: Elec tronically Signed By: DIPESH BUCKNER, Umm Hogan\Date and Time Signed: 10/11/22 11:01 EST Evaluation + Plan note No data available for this section General Surgery [facility] Discharge instructions No data available for this section General Surgery flo[facility] Progress note No data available for this [...] section and content) DATE CREATED AUTHOR 12/17/2021 [facility] DATE CREATED AUTHOR AUTHOR'S ORGANIZ ATION 12/16/2022 [facility] DATE CREATED AUTHOR AUTHOR'S ORGANIZ ATION 03/26/2023 [facility] DATE CREATED AUTHOR AUTHOR'S ORGANIZ ATION 01/20/2025 [facility] Patient Care team informatio n (unrecognized section and content) Personnel Name: Kendra Moran MD Address: Address: [address] [place] [address] Personnel Name: Kendra Moran MD Address: Address: [address] [place] [address] FOR RECORDS PERTAINING TO PATIENTS WHO ARE [...] BE BASED ON THE PRIMARY CLINICAL RECORDS. [facility] [employer] provides no warranty or guarantee of the accuracy or completeness of information in this document.
--- NOTE | 2025-01-31 00:37 | ECG_ITS ---
[facility] Test Date: 2025-01-31 Pat Name: MILAN RASMUSSEN Department: Room: - Gender: Female Photoresist Printer: : [id number] Requested By: [id number] Order Number: [id number] Reading MD: GOMEZ JAY M.D. Measurements Intervals [place] Rate: 69 P: 63 SC: 178 QRS: 47 QRSD: 90 T: 150 QT: 382 QTc: 402 Interpretive Statements 1100 Sinus rhythm [address] depression 4564 Tw[place] abnormality, possible lateral ischemia 9150 abnormal ECG Compared to ECG 11/25/2024 10:15:08 No significant changes Electronically Signed On 01-31-2025 9:30:00 EDT by GOMEZ JAY M.D.
--- NOTE | 2025-01-31 00:39 | ED.CHESTPAI1 ---
HPI - Chest Pain General Chief Complaint: Chest Pain Stated Complaint: CHEST PAIN Time Seen by Provider: 01/31/25 00:25 Source: patient Mode of arrival: ambulance Limitations: no limitations History of Present Illness HPI narrative: The patient is a 59-year-old female presenting to the emergency department via EMS. Patient is being brought in today for evaluation of chest pain. Patient stated while she was sitting on the couch, she had 3 sharp stabs to the left chest wall under her breast. They were just momentary. The patient then later said she had some chest pressure in the central area of her chest which she likened to indigestion. She stated she was nauseous. She did not vomit. She stated that she did not have any shortness of breath. Patient has had a myocardial infarction before and did not have any of the typical symptoms either. In route, medics placed an IV. They gave the patient 1 sublingual nitroglycerin as well as aspirin 324 mg. The patient reported that it did not do anything for her pain as the pain was transient with 3 short jabs. In June 2024, the patient had a stent placed. The patient stated that she does not recall the artery that was stented but it was 60% stenosed. She had 2 others that are 40% stenosed that they are just observing. She states that she goes to cardiac rehab 2-3 times a week. While there, she has not had any exertional chest pain or shortness of breath. Patient states that she has not had any new medication or dosage changes and that she is compliant with her medication regime. Related Data Home Medications ?Medication ?Instructions ?Recorded ?Confirmed metformin 500 mg tablet 500 mg PO BID 04/21/24 11/25/24 aspirin 81 mg capsule 81 mg PO DAILY 04/22/24 11/25/24 clopidogrel 75 mg tablet 75 mg PO DAILY 07/01/24 11/25/24 sennosides 8.6 mg-docusate sodium 1 tab-cap PO DAILY PRN constipation 07/20/24 11/25/24 50 mg tablet (Colace 2-In-1) quetiapine 100 mg tablet (Seroquel) 100 mg PO .QHS 07/24/24 11/25/24 rosuvastatin 40 mg tablet 40 mg PO DAILY 07/24/24 11/25/24 isosorbide mononitrate 60 mg 60 mg PO BID 07/31/24 11/25/24 tablet,extended release 24 hr lorazepam 1 mg tablet (Ativan) 1 mg PO Q6H PRN anxiety 07/31/24 11/25/24 hydralazine 50 mg tablet 50 mg PO TID PRN hypertension 09/15/24 11/25/24 albuterol sulfate 90 mcg/actuation 2 puff inhalation Q4H PRN 11/12/24 11/25/24 aerosol inhaler shortness of breath or wheezing Previous Rx's ?Medication ?Instructions ?Recorded carvedilol 25 mg tablet 25 mg PO TID #90 tabs 07/27/24 canagliflozin 300 mg tablet 300 mg PO DAILY #30 tabs 11/13/24 (Invokana) pantoprazole 40 mg tablet,delayed 40 mg PO BID #60 tabs 11/13/24 release (Protonix) Allergies Allergy/AdvReac Type Severity Reaction Status Date / Time amlodipine Allergy Mild Headache Verified 01/31/25 00:29 alprazolam (From Xanax) AdvReac Severe Watery Eye Verified 01/31/25 00:29 Review of Systems ROS Status of ROS 10 or more systems reviewed and unremarkable except as noted in history and below [facility] Medical History Elevated troponin ?R79.89 - Other specified abnormal findings of blood chemistry (ICD-10) Hypertensive emergency ?I16.1 - Hypertensive emergency (ICD-10) Acute non-ST elevation myocardial infarction (NSTEMI) ?I21.4 - Non-ST elevation (NSTEMI) myocardial infarction (ICD-10) Chest pain ?R07.9 - Chest pain, unspecified (ICD-10) CAD (coronary artery disease) ?I25.10 - Atherosclerotic heart disease of [place] coronary artery without angina pectoris (ICD-10) Hypertensive urgency ?I16.0 - Hypertensive urgency (ICD-10) HTN (hypertension) ?I10 - Essential (primary) hypertension (ICD-10) Hypertensive urgency ?I16.0 - Hypertensive urgency (ICD-10) Chest pain ?R07.9 - Chest pain, unspecified (ICD-10) Anxiety ?F41.9 - Anxiety disorder, unspecified (ICD-10) HTN (hypertension) ?I10 - Essential (primary) hypertension (ICD-10) Hypokalemia ?E87.6 - Hypokalemia (ICD-10) Hypertension, uncontrolled ?I10 - Essential (primary) hypertension (ICD-10) Chest pain ?R07.9 - Chest pain, unspecified (ICD-10) NSTEMI (non-ST elevated myocardial infarction) ?I21.4 - Non-ST elevation (NSTEMI) myocardial infarction (ICD-10) Shortness of breath ?R06.02 - Shortness of breath (ICD-10) Headache ?R51.9 - Headache, unspecified (ICD-10) Elevated d-dimer ?R79.89 - Other specified abnormal findings of blood chemistry (ICD-10) Hypertensive emergency ?I16.1 - Hypertensive emergency (ICD-10) Uncontrolled hypertension ?I10 - Essential (primary) hypertension (ICD-10) Irritable bowel syndrome ?K58.9 - Irritable bowel syndrome without diarrhea (ICD-10) H/O nephrolithotomy with removal of calculi ?Z98.890 - Other specified postprocedural states (ICD-10) ?Z87.442 - Personal history of urinary calculi (ICD-10) Kidney stone ?N20.0 - Calculus of kidney (ICD-10) Sepsis ?A41.9 - Sepsis, unspecified organism (ICD-10) H/O angiography ?Z92.89 - Personal history of other medical treatment (ICD-10) Lung nodule ?R91.1 - Solitary pulmonary nodule (ICD-10) Anxiety ?F41.9 - Anxiety disorder, unspecified (ICD-10) HTN (hypertension) ?I10 - Essential (primary) hypertension (ICD-10) Diabetes ?E11.9 - Type 2 diabetes mellitus without complications (ICD-10) TIA (transient ischemic attack) ?G45.9 - Transient cerebral ischemic attack, unspecified (ICD-10) Surgical History H/O heart artery stent ?Z95.5 - Presence of coronary angioplasty implant and graft (ICD-10) History of appendectomy ?Z90.49 - Acquired absence of other specified parts of digestive tract (ICD-10) H/O tubal ligation ?Z98.51 - Tubal ligation status (ICD-10) History of cholecystectomy ?Z90.49 - Acquired absence of other specified parts of digestive tract (ICD-10) Family History Mother Family history of cancer Father MVA (motor vehicle accident) Brother Family history of stroke Social History Within the past year, how often did you have a drink containing alcohol: never Within the past year, how often did you have six or more drinks on one occasion: never Score interpretation: A score less than 3 is consistent with normal alcohol consumption. Smoking status: Former smoker Second hand tobacco smoke exposure: No Non-prescribed substance use: denies use Previous occupational history: no Known occupational exposures/hazards: No Highest level of school completed/degree received: high school graduate Do you want help with school or training: No Are you now , , , , never or living with a partner: In a typical week, how many times do you talk on the telephone with family, friends, or neighbors: 3 or more times per week How often do you get together with friends or relatives: 3 or more times per week How often do you attend adventism or amish services: never Do you belong to any clubs or organizations such as adventism groups unions, fraternal or athletic groups, or school groups: no Total score: 1 Score interpretation: A score of less than or equal to 1 indicates the most socially isolated. Little interest or pleasure in doing things: not at all Feeling down, depressed, or hopeless: not at all Feel stressed/tense/nervous/anxious/difficulty sleeping: not at all Do you think of yourself as: straight/heterosexual Gender Identity: female Exam Narrative Exam Narrative: Prior to examining the patient, I have washed with hospital approved and provided Antiseptic Hand Size Stamper and have also applied gloves.? Prior to touching the patient, I asked for consent to examine the patient.? General: Alert and oriented, well nourished, mild distress. Increased BMI Eye: PERRL, EOMI, normal conjunctiva. HENT: Normocephalic, normal hearing, moist oral mucosa, no scleral icterus Neck: Supple, non-tender, no carotid bruits, no JVD, no lymphadenopathy. Lungs: Clear to auscultation and percussion, non-labored respiration. No rhonchi, rales, wheezing Heart: Normal rate, regular rhythm, no murmur, gallop or edema. Abdomen: Soft, non-tender, non-distended, normal bowel sounds, no masses. Central obesity Musculoskeletal: Normal range of motion and strength, no tenderness or swelling. Skin: Skin is warm, dry and pink, no rashes or lesions. Neurologic: Awake, alert, and oriented X3, CN II-XII intact. Psychiatric: Cooperative, appropriate mood and affect.? Following the conclusion of the examination, I have washed my hands thoroughly after removing examination gloves. Constitutional Vital Signs, click to edit/add: Last Vital Signs Temp 97.9 F 01/31/25 00:25 Pulse 69 01/31/25 02:20 Resp 12 01/31/25 02:20 BP 161/94 H 01/31/25 02:20 Pulse Ox 98 01/31/25 02:20 O2 Del Method Room Air 01/31/25 00:25 Course Course Hospital Course: Upon initial evaluation of the patient, she does feel nauseous. She was given Zofran 4 mg IV push. The patient otherwise denies any pain at this time. She states they were just 3 short jabs in the left side of her chest. She states that the nitro did not do anything for her and route to the hospital. The patient will have a cardiac work commenced which will include a CBC, CMP, EKG, chest x-ray, and troponin x 2. Vital Signs Vital signs: Vital Signs Temperature 97.9 F 01/31/25 00:25 Pulse Rate 72 01/31/25 00:25 Respiratory Rate 18 01/31/25 00:25 Blood Pressure 174/66 H 01/31/25 00:25 Pulse Oximetry 98 01/31/25 00:25 Oxygen Delivery Method Room Air 01/31/25 00:25 Temperature 97.9 F 01/31/25 00:25 Pulse Rate 69 01/31/25 02:20 Respiratory Rate 12 01/31/25 02:20 Blood Pressure 161/94 H 01/31/25 02:20 Pulse Oximetry 98 01/31/25 02:20 Oxygen Delivery Method Room Air 01/31/25 00:25 MDM - Chest Pain MDM Narrative Medical decision making narrative: Patient is a 59-year-old female who presented to the emergency department for chest pain. The patient had atypical chest pain with 3 short jabs in the left anterior chest wall under the left breast. There is no associated shortness of breath, nausea, diaphoresis, or referred pain. The patient had 2 troponins that were unremarkable. Her workup was otherwise unremarkable as well. Patient is at this time can you low risk and able to go home for patient follow-up Differential Diagnosis Differential diagnosis: Likely pneumothorax, stable angina, unstable angina pectoris, atypical chest pain, st elevation myocardial infarction, costochondritis and chest pain Medical Records Data Attestation: I reviewed the patient's medical records. Lab Data Attestation: I reviewed the patient's lab results. Lab results narrative: There is no evidence of leukocytosis. She does have very mild anemia. She does have evidence of a mild PORTILLO with a creatinine of 1.52 and a BUN of 29. Troponin x 2 [place] [id number], Labs: Lab Results 01/31/25 01/31/25 Range/Units 00:30 03:00 WBC 6.5 (4.0-11.0) 10^3/uL RBC 4.58 (4.20-5.40) 10^6/uL Hgb 11.9 L (12.0-16.0) g/dL Hct 37.8 (36.0-48.0) % MCV 82.5 (81.0-99.0) fL MCH 26.0 L (26.7-34.0) pg MCHC 31.5 (29.9-35.2) g/dL RDW 15.6 H (11.0-15.0) % Plt Count 211 (150-450) 10^3/uL MPV 9.9 (9.5-13.5) fL Neut % (Auto) 52.6 (43.0-75.0) % Lymph % (Auto) 37.2 (20.5-60.0) % [place] % (Auto) 6.6 (1.7-12.0) % Eos % (Auto) 2.6 (0.9-7.0) % Baso % (Auto) 0.8 (0.2-2.0) % Neut # (Auto) 3.4 (1.4-6.5) 10^3/uL Lymph # (Auto) 2.4 (1.2-3.8) 10^3/uL [place] # (Auto) 0.4 (0.3-0.8) 10^3/uL Eos # (Auto) 0.2 (0.0-0.7) 10^3/uL Baso # (Auto) 0.1 (0.0-0.1) 10^3/uL Abs Immat Gran (auto) 0.01 (0.00-0.03) 10^3/uL Imm/Tot Granulo (auto) 0.2 (0.0-0.5) % Sodium 142 (136-145) mmol/L Potassium 3.5 (3.5-5.1) mmol/L Chloride 107 (98-107) mmol/L Carbon Dioxide 24.6 (21.0-32.0) mmol/L Anion Gap 13.9 BUN 29.0 H (7.0-18.0) mg/dL Creatinine 1.52 H (0.55-1.02) mg/dL Est GFR ( Amer) 42 L (>=60 mL/min/1.73m^2) Est GFR (Non-Af Amer) 35 L (>=60 mL/min/1.73m^2) BUN/Creatinine Ratio 19.1 Glucose 114 H (74-106) mg/dL Calcium 9.2 (8.5-10.1) mg/dL Total Bilirubin 0.3 (0.2-1.0) mg/dL AST 25 (15-37) U/L ALT 44 (14-59) U/L Alkaline Phosphatase 61 (46-116) U/L Troponin I High Sens 9.3 8.9 (4.0-51.3) pg/mL NT-Pro-B Natriuret Pep 196.0 (<=900.0) pg/mL Total Protein 6.9 (6.4-8.2) g/dL Albumin 3.5 (3.4-5.0) g/dL Globulin 3.4 g/dL Albumin/Globulin Ratio 1.0 Lipase 72.0 (16.0-77.0) U/L Imaging Data Chest x-ray: Attestation: I have reviewed the pertinent imaging results. Radiologist's impression: Impression: 1. No acute process seen in the chest. 2. No lobar consolidation or edema. 3. No bronchial inflammation. ECG Data Attestation: I personally reviewed and interpreted this ECG as follows: ECG interpretation date: 01/31/25 ECG interpretation time: 00:31 Prior ECG tracings: available for review (I did compare this to an EKG November 25, 2024. The patient at that time had T wave inversions in 1, aVL, V5 and V6. This may be secondary to lead placement versus advancing coronary artery disease) Ischemic changes: non-specific ST-T wave changes and t wave inversions Interpretation: Twelve-lead EKG reveals a sinus rhythm with a ventricular of 69 bpm. The HI interval and QRS duration are within normal limits. QTc is not prolonged. [place] is normal. There is T wave inversion in 1, aVL, V2 through V6. Summary: Nonspecific EKG with obvious T wave abnormalities. No acute ischemia at this time. Heart Score History: Slightly/Non-Suspicious ECG: NS Repolarization (Changes were apparently not new for the patient) Age: >45-<65 years Risk Factors: 1 or 2 Risk Factors Troponin: <3X Normal Limit Total Heart Score Recommendations & Risks:: 4 Discharge Plan Discharge Chief Complaint: Chest Pain Clinical Impression: Chest pain Patient Disposition: Home, Self-Care Time of Disposition Decision: 03:45 Condition: Good Mode of Transportation: Private Vehicle Prescriptions / Home Meds: No Action metformin 500 mg tablet 500 mg PO BID aspirin 81 mg capsule 81 mg PO DAILY sennosides-docusate sodium [Colace 2-In-1] 8.6-50 mg tablet 1 tab-cap PO DAILY PRN (Reason: constipation) rosuvastatin 40 mg tablet 40 mg PO DAILY quetiapine [Seroquel] 100 mg tablet 100 mg PO .QHS Rx Instructions: AT HS carvedilol 25 mg Tablet 25 mg PO TID Qty: 90 11RF isosorbide mononitrate 60 mg Tablet Extended Release 24 Hr 60 mg PO BID lorazepam [Ativan] 1 mg tablet 1 mg PO Q6H PRN (Reason: anxiety) hydralazine 50 mg tablet 50 mg PO TID PRN (Reason: hypertension) Rx Instructions: States takes it if syst>150 albuterol sulfate 90 mcg/actuation HFA aerosol inhaler 2 puff INHALATION Q4H PRN (Reason: shortness of breath or wheezing) Invokana 300 mg tablet 300 mg PO DAILY Qty: 30 11RF pantoprazole [Protonix] 40 mg tablet,delayed release (DR/EC) 40 mg PO BID Qty: 60 11RF clopidogrel 75 mg tablet 75 mg PO DAILY Print Language: Andor[place] Instructions: Chest Pain (ED) Additional Instructions: Thank you for trusting me with your care today. I really would like for you to reach out to your primary care physician and/or your clinical laboratory scientist today so that you can get set up for an evaluation post emergency department visit. Referrals: Carlito Murillo MD [Primary Care Provider] - 1 week Discharge Date/Time: 01/31/25 04:22
[2025-01-31 00:43] LABS: Basophils Absolute Auto 0.1 10^3/uL (0.0-0.1); Basophils Percent Auto 0.8 % (0.2-2.0); Eosinophils Absolute Auto 0.2 10^3/uL (0.0-0.7); Eosinophils Percent Auto 2.6 % (0.9-7.0); Hematocrit 37.8 % (36.0-48.0); Hemoglobin 11.9 g/dL (12.0-16.0); Immature Granulocytes Abs Auto 0.01 10^3/uL (0.00-0.03); Immature Granulocytes Pct Auto 0.2 % (0.0-0.5); Lymphocytes Absolute Auto 2.4 10^3/uL (1.2-3.8); Lymphocytes Percent Auto 37.2 % (20.5-60.0); Mean Corpuscular HGB Conc 31.5 g/dL (29.9-35.2); Mean Corpuscular Volume 82.5 fL (81.0-99.0); Mean Platelet Volume 9.9 fL (9.5-13.5); Monocytes Absolute Auto 0.4 10^3/uL (0.3-0.8); Monocytes Percent Auto 6.6 % (1.7-12.0); Neutrophils Absolute Auto 3.4 10^3/uL (1.4-6.5); Neutrophils Percent Auto 52.6 % (43.0-75.0); Platelet Count 211 10^3/uL (150-450); Red Blood Count 4.58 10^6/uL (4.20-5.40); Red Cell Distribution Width 15.6 % (11.0-15.0); White Blood Count 6.5 10^3/uL (4.0-11.0)
[2025-01-31] MEDS: ONDANSETRON PF 4 MG/2 ML VIAL IV (00:55)
[2025-01-31 00:58] LABS: Alanine Aminotransferase 44 U/L (14-59); Albumin Level 3.5 g/dL (3.4-5.0); Alkaline Phosphatase 61 U/L (46-116); Anion Gap 13.9; Aspartate Amino Transferase 25 U/L (15-37); BUN Creatinine Ratio 19.1; Bilirubin Total 0.3 mg/dL (0.2-1.0); Calcium 9.2 mg/dL (8.5-10.1); Carbon Dioxide 24.6 mmol/L (21.0-32.0); Chloride 107 mmol/L (98-107); Estimated GFR (African America 42 (>=60 mL/min/1.73m^2); Estimated GFR (Non-African Ame 35 (>=60 mL/min/1.73m^2); Globulin 3.4 g/dL; Glucose 114 mg/dL (74-106); Potassium 3.5 mmol/L (3.5-5.1); Sodium 142 mmol/L (136-145); Total Protein 6.9 g/dL (6.4-8.2)
[2025-01-31 01:05] LABS: Troponin I High Sensitivity 9.3 pg/mL (4.0-51.3)
[2025-01-31 03:28] LABS: Troponin I High Sensitivity 8.9 pg/mL (4.0-51.3)
== END 2025-01-31 04:22 | disposition home or self-care (01) ==
PROVIDERS: Emergency Provider Emergency Medicine; PCP Family Medicine
DX: R07.9 Chest pain, unspecified (principal); I25.2 Old myocardial infarction; Z95.5 Presence of coronary angioplasty implant and graft; Z98.51 Tubal ligation status; Z90.49 Acquired absence of other specified parts of digestive tract; Z87.891 Personal history of nicotine dependence
CPT/HCPCS: 36415; 71045; 80053; 83690; 83880; 84484; 85025; 93005; 96374; 99285; J2405

== ENCOUNTER 2025-02-08 14:07 | Emergency (ER) | payer MEDICAID, SELFPAY ==
[2025-02-08 14:12] VITALS: BP 168/75; PULSE 71; TEMP 36.6; O2SAT 95; BMI 37.2
--- NOTE | 2025-02-08 14:39 | ED_ITS ---
HPI HPI - General Adult General Chief complaint: Wound/Laceration Stated complaint: POST OP ISSUE Time Seen by Provider: 02/08/25 14:25 Source: patient Mode of arrival: Wheelchair Limitations: no limitations History of Present Illness HPI narrative: Patient is a 59-year-old female with a history of coronary artery disease who presents to the emergency department for discomfort in the right groin. She had a catheterization procedure done yesterday in [facility] by her paving foreman. She had an incision in her right groin, she states they were taking samples from her kidneys. She states she was told to take it easy today, however she decided to move furniture in her living room and vacuum. She states she felt a twinge in the right groin with vacuuming and she called her daughter who brought her to the emergency department. There has been no bleeding or drainage from the area. She has no significant pain at this time. She is ambulatory. She did not contact her [place] paving foreman or the office. Related Data Home Medications ?Medication ?Instructions ?Recorded ?Confirmed metformin 500 mg tablet 500 mg PO BID 04/21/24 11/25/24 aspirin 81 mg capsule 81 mg PO DAILY 04/22/24 11/25/24 clopidogrel 75 mg tablet 75 mg PO DAILY 07/01/24 11/25/24 sennosides 8.6 mg-docusate sodium 1 tab-cap PO DAILY PRN constipation 07/20/24 11/25/24 50 mg tablet (Colace 2-In-1) quetiapine 100 mg tablet (Seroquel) 100 mg PO .QHS 07/24/24 11/25/24 rosuvastatin 40 mg tablet 40 mg PO DAILY 07/24/24 11/25/24 isosorbide mononitrate 60 mg 60 mg PO BID 07/31/24 11/25/24 tablet,extended release 24 hr lorazepam 1 mg tablet (Ativan) 1 mg PO Q6H PRN anxiety 07/31/24 11/25/24 hydralazine 50 mg tablet 50 mg PO TID PRN hypertension 09/15/24 11/25/24 albuterol sulfate 90 mcg/actuation 2 puff inhalation Q4H PRN 11/12/24 11/25/24 aerosol inhaler shortness of breath or wheezing Previous Rx's ?Medication ?Instructions ?Recorded carvedilol 25 mg tablet 25 mg PO TID #90 tabs 07/27/24 canagliflozin 300 mg tablet 300 mg PO DAILY #30 tabs 11/13/24 (Invokana) pantoprazole 40 mg tablet,delayed 40 mg PO BID #60 tabs 11/13/24 release (Protonix) Allergies Allergy/AdvReac Type Severity Reaction Status Date / Time lisinopril Allergy Severe Cough Verified 02/08/25 14:12 amlodipine Allergy Mild Headache Verified 02/08/25 14:12 alprazolam (From Xanax) AdvReac Severe Watery Eye Verified 02/08/25 14:12 Opioid HPI Opioid Management Most Recent Opioid Data: Last Pain Scale 2 02/08/25 14:50 02/08/25 Last ORT Total Score 4 11/12/24 11:27 11/12/24 Last ORT Risk Category Moderate Risk 11/12/24 11:27 11/12/24 Review of Systems ROS Constitutional Denies: fever or chills Ears, nose, mouth, and throat Denies: throat pain or nasal congestion Cardiovascular Denies: chest pain Respiratory Denies: shortness of breath Gastrointestinal Denies: nausea or vomiting Musculoskeletal Denies: back pain or neck pain Integumentary/Breast Denies: rash Neurological Denies: numbness in extremities or weakness in extremities Hematologic/Lymphatic Denies: easy bruising or easy bleeding PFSH PFSH Medical History Elevated troponin ?R79.89 - Other specified abnormal findings of blood chemistry (ICD-10) Hypertensive emergency ?I16.1 - Hypertensive emergency (ICD-10) Acute non-ST elevation myocardial infarction (NSTEMI) ?I21.4 - Non-ST elevation (NSTEMI) myocardial infarction (ICD-10) Chest pain ?R07.9 - Chest pain, unspecified (ICD-10) CAD (coronary artery disease) ?I25.10 - Atherosclerotic heart disease of [place] coronary artery without angina pectoris (ICD-10) Hypertensive urgency ?I16.0 - Hypertensive urgency (ICD-10) HTN (hypertension) ?I10 - Essential (primary) hypertension (ICD-10) Hypertensive urgency ?I16.0 - Hypertensive urgency (ICD-10) Chest pain ?R07.9 - Chest pain, unspecified (ICD-10) Anxiety ?F41.9 - Anxiety disorder, unspecified (ICD-10) HTN (hypertension) ?I10 - Essential (primary) hypertension (ICD-10) Hypokalemia ?E87.6 - Hypokalemia (ICD-10) Hypertension, uncontrolled ?I10 - Essential (primary) hypertension (ICD-10) Chest pain ?R07.9 - Chest pain, unspecified (ICD-10) NSTEMI (non-ST elevated myocardial infarction) ?I21.4 - Non-ST elevation (NSTEMI) myocardial infarction (ICD-10) Shortness of breath ?R06.02 - Shortness of breath (ICD-10) Headache ?R51.9 - Headache, unspecified (ICD-10) Elevated d-dimer ?R79.89 - Other specified abnormal findings of blood chemistry (ICD-10) Hypertensive emergency ?I16.1 - Hypertensive emergency (ICD-10) Uncontrolled hypertension ?I10 - Essential (primary) hypertension (ICD-10) Irritable bowel syndrome ?K58.9 - Irritable bowel syndrome without diarrhea (ICD-10) H/O nephrolithotomy with removal of calculi ?Z98.890 - Other specified postprocedural states (ICD-10) ?Z87.442 - Personal history of urinary calculi (ICD-10) Kidney stone ?N20.0 - Calculus of kidney (ICD-10) Sepsis ?A41.9 - Sepsis, unspecified organism (ICD-10) H/O angiography ?Z92.89 - Personal history of other medical treatment (ICD-10) Lung nodule ?R91.1 - Solitary pulmonary nodule (ICD-10) Anxiety ?F41.9 - Anxiety disorder, unspecified (ICD-10) HTN (hypertension) ?I10 - Essential (primary) hypertension (ICD-10) Diabetes ?E11.9 - Type 2 diabetes mellitus without complications (ICD-10) TIA (transient ischemic attack) ?G45.9 - Transient cerebral ischemic attack, unspecified (ICD-10) Surgical History H/O heart artery stent ?Z95.5 - Presence of coronary angioplasty implant and graft (ICD-10) History of appendectomy ?Z90.49 - Acquired absence of other specified parts of digestive tract (ICD- 10) H/O tubal ligation ?Z98.51 - Tubal ligation status (ICD-10) History of cholecystectomy ?Z90.49 - Acquired absence of other specified parts of digestive tract (ICD- 10) Family History Mother Family history of cancer Father MVA (motor vehicle accident) Brother Family history of stroke Social History Within the past year, how often did you have a drink containing alcohol: never Within the past year, how often did you have six or more drinks on one occasion: never Score interpretation: A score less than 3 is consistent with normal alcohol consumption. Smoking status: Former smoker Second hand tobacco smoke exposure: No Non-prescribed substance use: denies use Previous occupational history: no Known occupational exposures/hazards: No Highest level of school completed/degree received: high school graduate Do you want help with school or training: No Are you now , , , , never or living with a partner: In a typical week, how many times do you talk on the telephone with family, friends, or neighbors: 3 or more times per week How often do you get together with friends or relatives: 3 or more times per week How often do you attend druze or temple services: never Do you belong to any clubs or organizations such as druze groups unions, fraternal or athletic groups, or school groups: no Total score: 1 Score interpretation: A score of less than or equal to 1 indicates the most socially isolated. Little interest or pleasure in doing things: not at all Feeling down, depressed, or hopeless: not at all Feel stressed/tense/nervous/anxious/difficulty sleeping: not at all Do you think of yourself as: straight/heterosexual Gender Identity: female Exam Narrative Exam Narrative: Gen.: Awake, alert, in no distress Head: Normocephalic, atraumatic ENT: Moist mucous membranes Respiratory: No respiratory distress Gastrointestinal: Abdomen is soft, nondistended and nontender to palpation Extremities: Moves extremities equally, catheterization site to the right groin is well-healing, no pulsatile mass appreciated. Nontender. No bleeding or drainage Psych: Normal mood and affect Neuro: No focal neuro deficit Skin: Warm, dry, intact Constitutional Vital Signs, click to edit/add: Last Vital Signs Temp 97.8 F 02/08/25 14:12 Pulse 71 02/08/25 14:12 Resp 16 02/08/25 14:12 BP 168/75 H 02/08/25 14:12 Pulse Ox 95 02/08/25 14:12 O2 Del Method Room Air 02/08/25 14:12 Course Vital Signs Vital signs: Vital Signs Temperature 97.8 F 02/08/25 14:12 Pulse Rate 71 02/08/25 14:12 Respiratory Rate 16 02/08/25 14:12 Blood Pressure 168/75 H 02/08/25 14:12 Pulse Oximetry 95 02/08/25 14:12 Oxygen Delivery Method Room Air 02/08/25 14:12 Temperature 97.8 F 02/08/25 14:12 Pulse Rate 71 02/08/25 14:12 Respiratory Rate 16 02/08/25 14:12 Blood Pressure 168/75 H 02/08/25 14:12 Pulse Oximetry 95 02/08/25 14:12 Oxygen Delivery Method Room Air 02/08/25 14:12 Medical Decision Making MDM Narrative Medical decision making narrative: Ultrasound with no evidence of pseudoaneurysm. Patient is hemodynamically stable. Follow-up with your surgeon and return to the emergency department if symptoms change or worsen. Patient was encouraged to restrict heavy physical activity until cleared by her paving foreman. SUPERVISED APC VISIT, PHYSICIAN ATTESTATION: Based on the medical record the care appears appropriate. ? Medical Records Medical records reviewed: Yes I reviewed the patient's medical records Imaging Data US arterial right leg: Attestation: I have reviewed the pertinent imaging results. Discharge Plan Discharge Chief Complaint: Wound/Laceration Clinical Impression: Right groin pain Patient Disposition: Home, Self-Care Time of Disposition Decision: 15:55 Condition: Good Prescriptions / Home Meds: No Action metformin 500 mg tablet 500 mg PO BID aspirin 81 mg capsule 81 mg PO DAILY sennosides-docusate sodium [Colace 2-In-1] 8.6-50 mg tablet 1 tab-cap PO DAILY PRN (Reason: constipation) rosuvastatin 40 mg tablet 40 mg PO DAILY quetiapine [Seroquel] 100 mg tablet 100 mg PO .QHS Rx Instructions: AT HS carvedilol 25 mg Tablet 25 mg PO TID Qty: 90 11RF isosorbide mononitrate 60 mg Tablet Extended Release 24 Hr 60 mg PO BID lorazepam [Ativan] 1 mg tablet 1 mg PO Q6H PRN (Reason: anxiety) hydralazine 50 mg tablet 50 mg PO TID PRN (Reason: hypertension) Rx Instructions: States takes it if syst>150 albuterol sulfate 90 mcg/actuation HFA aerosol inhaler 2 puff INHALATION Q4H PRN (Reason: shortness of breath or wheezing) Invokana 300 mg tablet 300 mg PO DAILY Qty: 30 11RF pantoprazole [Protonix] 40 mg tablet,delayed release (DR/EC) 40 mg PO BID Qty: 60 11RF clopidogrel 75 mg tablet 75 mg PO DAILY Print Language: Polish Instructions: Acute Wounds (ED) Referrals: Carlito Murillo MD [Primary Care Provider] - 1 week
== END 2025-02-08 16:03 | disposition home or self-care (01) ==
PROVIDERS: Emergency Provider Emergency Medicine; PCP Family Medicine
DX: R10.31 Right lower quadrant pain (principal); I25.10 Atherosclerotic heart disease of native coronary artery without angina pectoris; Z98.890 Other specified postprocedural states; Z95.5 Presence of coronary angioplasty implant and graft; Z90.49 Acquired absence of other specified parts of digestive tract; Z98.51 Tubal ligation status; Z87.891 Personal history of nicotine dependence
CPT/HCPCS: 93926; 99284

== ENCOUNTER 2025-02-14 07:05 | Outpatient (RCR) | payer MEDICAID, SELFPAY ==
--- NOTE | 2024-12-06 | CR1_ITS ---
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
--- NOTE | 2025-01-05 10:04 | CR1_ITS ---
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 Order Number: [id number] [place] MD: AMBER MAN Interpretive Statements Session Date: Electronically Signed On 01-06-2025 8:46:05 EST by AMBER MAN
== END 2025-02-14 14:23 | disposition home or self-care (01) ==
LOC: CR 07:05
PROVIDERS: PCP Family Medicine; Visit Provider Internal Medicine Interventional Cardiology
DX: Z98.61 Coronary angioplasty status (principal)
CPT/HCPCS: 93798

== ENCOUNTER 2025-03-03 20:45 | Emergency (ER) | payer MEDICAID, SELFPAY ==
[2025-03-03 20:50] VITALS: BP 165/84; PULSE 94; TEMP 37.2; O2SAT 94; BMI 35.4
--- OUTSIDE RECORDS SUMMARY | 2025-03-03 20:56 | XMS_ITS | CCD ---
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 Plastic Boat Name Role Phone Kenrda Moran Primary Care Physician [phone] Umm LANDON Attending Unavailable NILLUmm Attending Unavailable MARKER ., DR DEVINE Attending Unavailable MARKER ., DR DEVINE Consulting Unavailable MARKER ., DR DEVINE Admitting Unavailable HOY ., DR GARDNER Primary Care Unavailable UMM HUMPHRIES Consulting Unavailable NILL ., DR SALOMON Admitting Unavailable HOY ., DR GARDNER Primary Care Unavailable NILL ., DR SALOMON Attending Unavailable NILL ., DR SALOMON Consulting Unavailable NILL ., DR SALOMON Admitting Unavailable HOY ., DR GARDNER Primary Care Unavailable NILL ., DR SALOMON Attending Unavailable NILL ., DR SALOMON Consulting Unavailable DIPTIGUILLE Payne Consulting Unavailable MICHAEL II, BASILIA Consulting Unavailable [...] Primary Care Unavailable HOY ., DR GARDNER Admkenney Unavailable HOY ., DR GARDNER Attending Unavailable HOY ., DR GARDNER Consulting Unavailable HOY ., DR GARDNER Primary Care Unavailable VIMAL, DR ADELIA Medrano Consulting Unavailable FENG CHRISTIE Attending Unavailable FENG CHRISTIE Referring Unavailable KENDRA MORAN Primary Care Unavailable GAGE NÚÑEZ Admitting Unavailable FEDERICA ANDERSON Referring Unavailable DOMINIC, NONA Referring Unavailable FENG CHRISTIE Attending Unavailable RICHA VIRAMONTES Attending Unavailable FEDERICA ANDERSON Referring Unavailable JOSE BETANCUR Referring Unavailable HORANI, NONA Admitting Unavailable TAO NASSAR Attending Unavailable HERMINIA JULIAN Attending Unavailable FENG CHRISTIE Referring Unavailable OMBALLI, MOHAMED Referring Unavailable OMBALLI, MOHAMED Referring Unavailable STEPHENBIJAN Marcelino Attending Unavailable FENG CHRISTIE Attending Unavailable MACMESERET SNELL Referring Unavailable FENG CHRISTIE Attending Unavailable HORANI, NONA Referring Unavailable BIJAN MITCHELL Attending Unavailable GOMEZ SPENCE Attending Unavailable FENG CHRISTIE Attending Unavailable GOMEZ SPENCE Attending Unavailable OMBALLI, RICHA Attending Unavailable HORANI, NONA Referring Unavailable KENDRA MORAN Referring Unavailable HORANI, NONA Admitting Unavailable HORANI, NONA Attending Unavailable HORANI, NONA Referring Unavailable GOMEZ SPENCE Attending Unavailable HERMINIA JULIAN Referring Unavailable BERYL FELECIA Referring Unavailable Kendra Moran MD Primary Care Provider [phone] Allergies Allergy Classification Reported Allergen(s) Allergy Type Date of Onset Reaction(s) Facility (1 source) No Known Medication Allergies; Translations: [No Known Medication Allergies] Propensity to adverse reactions (disorder) [facility] Repository (3 sources) ALPRAZolam; Translations: [ALPRAZOLAM] Drug Allergy 4 Abnormal Behavior [facility] Repository (4 sources) amLODIPine; Translations: [AMLODIPINE] Drug Allergy 4 Other (See Comments) [facility] Repository (4 sources) Lisinopril; Translations: [LISINOPRIL] Drug Allergy 4 Cough [facility] Repository (1 source) LORazepam Drug Allergy 5 Unknown Reaction [facility] Medications Current Medications Medication Drug Class(es) Dates Sig (Normalized) Sig (Original) amitriptyline hydrochloride 100 mg oral tablet (4 sources) Tricyclic Antidepressant Start: 10-06-2021 take 1 tablet by mouth once daily at bedtime amitriptyline 100 mg oral tablet 100 mg = 1 tab(s), Oral, Once a day (at bedtime), Refills(s) 0 Start Date: 09/30/22 Status: Ordered aspirin 325 mg delayed release oral tablet (3 sources) Platelet Aggregation Inhibitor, Nonsteroidal Anti-inflammatory Drug Start: 09-30-2022 take 1 tablet by mouth once daily aspirin 325 mg Oral EC Tab 325 mg = 1 tab(s), Oral, Daily, Refills(s) 0 Start Date: 09/30/22 Status: Ordered take 1 tablet by mouth in the mo rning aspirin 81 mg Take 1 tablet (81 mg total) by mouth in the morning. Active atorvastatin 40 mg oral tablet (2 sources) HMG-CoA Reductase Inhibitor Start: 10-06-2022 take 1 tablet by mouth once daily atorvastatin 40 mg Tab 40 mg = 1 tab(s), Oral, Daily, Refills(s) 0 Start Date: 10/06/22 Status: Ordered canagliflozin 300 mg oral tablet (2 sources) Sodium-Glucose Cotransporter 2 Inhibitor Start: 03-03-2025 Canagliflozin (Invokana) 300 mg tablet Active MG PO March 03, 2025 12:00am Start: 08-23-2024 take 1 tablet by dolores th in the morning INVOKANA 100 mg tablet Take 1 tablet (100 mg total) by mouth in the morning. 08/23/2024 Active carvedilol 25 mg oral tablet (2 sources) alpha-Adrenergic Tammie, beta-Adrenergic Tammie Start: 03-03-2025 Carvedilol 25 mg tablet Active MG PO March 03, 2025 12:00am citalopram 20 mg oral tablet (1 source) Serotonin Reuptake Inhibitor take 1 tablet by mouth once daily citalopram (CeleXA) 20 mg tablet Take 20 mg by mouth daily. Active clopidogrel 75 mg oral tablet (2 sources) P2Y12 Platelet Inhibitor Start: 03-03-2025 Clopidogrel 75 mg tablet Active MG PO March 03, 2025 12:00am Estradiol (2 sources) Estrogen Start: 03-03-2025 Estradiol 0.01 % (0.1 mg/gram) cream Active VAGINAL March 03, 2025 12:00am Start: 03-02-2025 End: 03-11-2026 estradioL (ESTRACE) 0.01 % ( 0.1 mg/gram) vaginal cream Indications: Genitourinary syndrome of menopause Insert 0.5 g into the vagina nightly for 14 days, THEN 0.5 g 2 (two) times a week for 360 days. 0.5 grams vaginally each night for two weeks and then twice weekly (ex. Wednesday and ). In additional to vaginal use, apply pea size amount to fingertip and rub in vulva and vaginal introitus.. 42.5 g 1 03/02/2025 03/11/2026 Active furosemide 20 mg oral tablet (2 sources) Loop Diuretic Start: 10-06-2022 take 1 tablet by mouth once daily furosemide 20 mg Tab 20 mg = 1 tab(s), Oral, Daily, Refills(s) 0 Start Date: 10/06/22 Status: Ordered hydrALAZINE hydrochloride 50 mg oral tablet (1 source) Arteriolar Vasodilator Start: 07-28-2024 take 1 tablet by mouth once daily as needed hydrALAZINE (APRESOLINE) 50 mg tablet Take 1 tablet (50 mg total) by mouth daily as needed (as neded). 07/28/2024 Active hydrOXYzine hydrochloride 25 mg oral tablet (4 sources) Antihistamine Start: 10-06-2021 take 1 tablet by mouth four times daily hydrOXYzine hydrochloride 25 mg Tab 25 mg = 1 tab(s), Oral, QID, Refills(s) 0 Start Date: 09/30/22 Status: Ordered take 1 tablet by dolores th three times daily as needed hydrOXYzine (ATARAX) 25 mg tablet Take 1 tablet (25 mg total) by mouth 3 (three) times a day as needed. Active irbesartan 300 mg oral tablet (2 sources) Angiotensin 2 Receptor Tammie Start: 10-06-2021 take 1 tablet by mouth once daily Irbesartan 300 mg tablet Active 300 MG PO Daily October 06, 2021 1:00am 24 hr isosorbide mononitrate 60 mg extended release oral tablet (2 sources) Nitrate Vasodilator Start: 03-03-2025 take 1 tablet by mouth every twenty-four hours Isosorbide Mononitrate 60 mg tablet extended release 24 hr Active MG PO March 03, 2025 12:00am take 1 tablet by dolores th every twenty-four hours at bedtime isosorbide mononitrate (IMDUR) 60 mg 24 hr tablet Take 1 tablet (60 mg total) by mouth in the morning and at bedtime. Active LORazepam 1 mg oral tablet (4 sources) Benzodiazepine Start: 08-15-2024 Lorazepam 1 mg tablet Active MG PO March 03, 2025 12:00am Start: 10-04-2017 End: 03-03-2025 take 1 tablet by mouth three times daily as needed for anxiety Lorazepam 0.5 mg tablet Discontinued 0.5 MG PO Three times daily as needed for Anxiety October 06, 2021 1:00am March 03, 2025 10:55am metFORMIN hydrochloride 500 mg oral tablet (2 sources) Biguanide Start: 03-03-2025 Metformin 500 mg tablet Active MG PO March 03, 2025 12:00am 24 hr nicotine 0.875 mg/hr transdermal system (1 source) Cholinergic Nicotinic Agonist Start: 10-07-2021 apply 1 dose transdermal route every twenty-four hours Nicotine 21 mg/24 hr Patch 24 Hour Active 1 EACH TRANSDERML Daily October 07, 2021 1:00am pantoprazole 40 mg delayed release oral tablet (2 sources) Proton Pump Inhibitor Start: 03-03-2025 Pantoprazole 40 mg tablet,delayed release (DR/EC) Active MG PO March 03, 2025 12:00am QUEtiapine 100 mg oral tablet (2 sources) Atypical Antipsychotic Start: 03-03-2025 Quetiapine 100 mg tablet Active MG PO March 03, 2025 12:00am rosuvastatin calcium 40 mg oral tablet (2 sources) HMG-CoA Reductase Inhibitor Start: 07-01-2024 End: 10-03-2025 Rosuvastatin 40 mg tablet Active MG PO March 03, 2025 12:00am Completed/Discontinued Medications Medication Drug Class(es) Dates Sig (Normalized) Sig (Original) metoprolol tartrate 100 mg oral tablet (3 sources) beta-Adrenergic Tammie Start: 08-02-2019 End: 03-03-2025 take 1 tablet by mouth twice daily Metoprolol Tartrate 100 mg tablet Discontinued 100 MG PO Twice daily October 06, 2021 1:00am March 03, 2025 10:54am Problems Active Problems Problem Classification Problem Date Documented Da te Episodic/Chronic Acute myocardial infarction (2 sources) Non-ST elevation (NSTEMI) myocardial infarction; Translations: [Non-ST elevation (NSTEMI) myocardial infarction] Onset: 4 Chronic Anxiety disorders (8 sources) Anxiety; Translations: [Panic disorder] Onset: 2 08-02-2019 Chronic Comment on above: Problem List clean-u p per request of Phys. EHR Cmte Complication of device; implant or graft (2 sources) Retained ureteric stent 08-29-2019 Episodic Coronary atherosclerosis and other heart disease (7 sources) Coronary arteriosclerosis; Translations: [Atherosclerotic heart disease of [place] coronary artery without angina pectoris] Onset: 3 09-30-2022 Chronic Diabetes mellitus without complication (2 sources) Type 2 diabetes mellitus without complications; Translations: [Type 2 diabetes mellitus without complications] Onset: 4 Chronic Disorders of lipid metabolism (3 sources) Hyperlipidemia, unspecified; Translations: [HYPERLIPIDEMIA UNSPECIFIED] Onset: 3 Chronic Esophageal disorders (1 source) Gastroesophageal reflux disease; Translations: [Gastro-esophageal reflux disease without esophagitis] Onset: 7 10-18-2017 Chronic Essential hypertension (6 sources) Hypertensive disorder; Translations: [Essential (primary) hypertension] Onset: 7 08-02-2019 Chronic Genitourinary symptoms and ill-defined conditions [...] transmitteddisease) (2 sources) Allergic conjunctivitis 09-30-2022 Episodic Menopausal disorders (1 source) Genitourinary syndrome of menopause; Translations: [Other specified menopausal and perimenopausal disorders] 03-02-2025 Chronic Mood disorders (3 sources) Depressive disorder; Translations: [Severe recurrent major depression] 09-30-2022 Chronic Comment on above: Problem List clean-u p per request of Phys. EHR Cmte Neoplasms of unspecified nature or uncertain behavior (2 sources) Neoplasm of uncertain behavior of skin of chest 07-02-2021 Episodic Other and ill-defined heart disease (2 sources) Left ventricular hypertrophy 09-30-2022 Chronic Other and unspecified benign neoplasm (2 sources) Benign neoplasm of left adrenal gland; Translations: [Benign neoplasm of left adrenal gland] Onset: 5 Episodic Other diseases of kidney and ureters (2 sources) Hydronephrosis 08-02-2019 Episodic Other endocrine disorders (3 sources) Other primary hyperaldosteronism; Translations: [Other primary hyperaldosteronism] Onset: 4 Chronic Other female genital disorders (1 source) Postcoital bleeding; Translations: [Postcoital and contact bleeding] 03-02-2025 Chronic Other gastrointestinal disorders (2 sources) Adrenal [...] (BMI) 37.0-37.9, adult] Onset: 4 Chronic Other skin disorders (2 sources) Inflamed [...] Nicotine dependence 12-20-2019 Chronic Transient cerebral ischemia (3 sources) Transient cerebral ischemia; Translations: [Transient cerebral ischemic attack, unspecified] Onset: 7 10-30-2020 Chronic Unclassified (2 sources) Injury of left ureter 12-20-2019 Unclassified (1 source) CONTACT W/AND (SUSP) EXPOS COVID-19; Translations: [CONTACT W/AND (SUSP) EXPOS COVID-19] Onset: 3 Unclassified (1 source) Resistant hypertension; Translations: [Resistant hypertension] Onset: 4 Unclassified (1 source) Obesity, class 2; Translations: [Obesity, class 2] Onset: 4 Past or Other Problems Problem [...] sources) Hypokalemia; Translations: [Hypokalemia] Onset: 4 Episodic Inflammatory diseases of female pelvic organs (1 source) Bacterial vaginosis; Translations: [Acute vaginitis] Onset: 7 10-18-2017 Episodic Nonspecific chest pain (2 sources) Chest pain, unspecified; Translations: [Chest pain, unspecified] Onset: 4 Episodic Other aftercare (1 source) [facility] (current) use of aspirin; Translations: [PENITENTIARY CURRENT USE OF ASPIRIN] Onset: 3 Episodic Other aftercare (1 source) Other continuous churn buttermaker (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 therapy; Translations: [OTH PENITENTIARY CURRENT DRUG THERAPY] Onset: 3 Episodic Other [...] Name Value Interpretation Reference Range Facility 36on 02-28-2025 36 [facility] Please call patient and let her know that I've requested the test results from [facility] ([facility]) Ill be able to discuss the results with her tomorrow Thank you [facility] 36on 02-26-2025 36 Patient called regarding IR venography she had done 02/07. Requesting to discuss results and how she should follow up per Dr. Christie [facility] Office Visiton 02-26-2025 Follow-up visit [id number] Aby Madrigal 1965 F Date Provider Department Center 02/26/2025 GOMEZ KENDALL [facility] Family History Problem Relation Age of Onset Lung cancer Mother Accidental Father Lung cancer Sister Family Status - Relation Status Age at Mother Father Sister Brother Alive Level of Service:96467 LA OFFICE/OUTPATIENT ESTABLISHED LOW MDM 20 MIN Normal [facility] Cortisol [Mass/Vol]on 2024 CORTISOL 5.2 ug/dL Normal [facility] Comment on above: Result Comment: Due to the diurnal variation of cortisol levels in normal subjects, all cortisol measurements should be referenced to the time of day of sample collection. AM Cortisol Age>=6 6.7-22.4 ug/dL PM Cortisol Age>=6 <10 ug/dL Performed By: #### 2 143-6 #### [facility] ([id number]) [address] [place] [address], [facility] [address] [place] [address] CORTISOL 5.2 ug/dL Normal [facility] Comment on above: Result Comment: Due to the diurnal variation of cortisol levels in normal subjects, all cortisol measurements should be referenced to the time of day of sample collection. AM Cortisol Age>=6 6.7-22.4 ug/dL PM Cortisol Age>=6 <10 ug/dL Performed By: #### 2 143-6 #### [facility] ([id number]) [address] [place] [address], [address] [place] [address] CORTISOL 10.9 ug/dL Normal [facility] Comment on above: Result Comment: Due to the diurnal variation of cortisol levels in normal subjects, all cortisol measurements should be referenced to the time of day of sample collection. AM Cortisol Age>=6 6.7-22.4 ug/dL PM Cortisol Age>=6 <10 ug/dL Performed By: #### 2 143-6 #### [facility] ([id number]) [address], [address] [place] [address] CORTISOL 11.1 ug/dL Normal [facility] Comment on above: Result Comment: Due to the diurnal variation of cortisol levels in normal subjects, all cortisol measurements should be referenced to the time of day of sample collection. AM Cortisol Age>=6 6.7-22.4 ug/dL PM Cortisol Age>=6 <10 ug/dL Performed By: #### 2 143-6 #### [facility] ([id number]) [address], [address] [place] [address] CORTISOL 5.7 ug/dL Normal [facility] Comment on above: Result Comment: Due to the diurnal variation of cortisol levels in normal subjects, all cortisol measurements should be referenced to the time of day of sample collection. AM Cortisol Age>=6 6.7-22.4 ug/dL PM Cortisol Age>=6 <10 ug/dL Performed By: #### 2 143-6 #### [facility] ([id number]) [address], [address] [place] [address] CORTISOL 14.3 ug/dL Normal [facility] Comment on above: Result Comment: Due to the diurnal variation of cortisol levels in normal subjects, all cortisol measurements should be referenced to the time of day of sample collection. AM Cortisol Age>=6 6.7-22.4 ug/dL PM Cortisol Age>=6 <10 ug/dL Performed By: #### 2 143-6 #### [facility] ([id number]) [address], [address] [place] [address] DISNEY GENERIC ORDERon 025 TEST NAME AIVC INFERIOR VENA CAVA Normal [facility] Comment on above: Result Comment: Ocdy ected on 02/07 AT 1204: Previously reported as INFERIOR VENA CAVA TEST RESULT SEE COMMENTS 02/10/2025 12:12 AM Normal [facility] Comment on above: Result Comment: NOTE Test Result Flag Unit RefValue Aldosterone, IVC <4.0 ng/dL Not applicable ADDITIONAL INFORMATION This test was developed and its performance characteristics determined by [facility] in a manner consistent with CLIA requirements. This test has not been cleared or approved by the U.S. Food and Drug Administration. Test Performed by: [facility] [address] [place] [address] Salesperson [employer]: Shawanda Jimenez Ph.D.; CLIA# [id number] Result Comment: NOTE Test Result Flag Unit RefValue Aldosterone, LAV 32 ng/dL Not applicable ADDITIONAL INFORMATION This test was developed and its performance characteristics determined by [facility] in a manner consistent with CLIA requirements. This test has not been cleared or approved by the U.S. Food and Drug Administration. Test Performed by: [facility] [address] Salesperson [employer]: Shawanda Jimenez Ph.D.; CLIA# [id number] Result Comment: NOTE Test Result Flag Unit RefValue Aldosterone, LAV 28 ng/dL Not applicable ADDITIONAL INFORMATION This test was developed and its performance characteristics determined by [facility] in a manner consistent with CLIA requirements. This test has not been cleared or approved by the U.S. Food and Drug Administration. Test Performed by: [facility] [address] Salesperson [employer]: Shawanda Jimenez Ph.D.; CLIA# [id number] Result Comment: NOTE Test Result Flag Unit RefValue Aldosterone, KELLEY <4.0 ng/dL Not applicable ADDITIONAL INFORMATION This test was developed and its performance characteristics determined by [facility] in a manner consistent with CLIA requirements. This test has not been cleared or approved by the U.S. Food and Drug Administration. Test Performed by: [facility] [address] Salesperson [employer]: Shawanda Jimenez Ph.D.; CLIA# [id number] Result Comment: NOTE Test Result Flag Unit RefValue Aldosterone, KELLEY 74 ng/dL Not applicable ADDITIONAL INFORMATION This test was developed and its performance characteristics determined by [facility] in a manner consistent with CLIA requirements. This test has not been cleared or approved by the U.S. Food and Drug Administration. Test Performed by: [facility] [address] Salesperson [employer]: Shawanda Jimenez Ph.D.; CLIA# [id number] TEST NAME ALAV LEFT ADRENAL Normal [facility] TEST NAME ALAV LEFT ADRENAL Normal [facility] TEST NAME ARAV RIGHT ADRENAL Normal [facility] TEST NAME ARAV RIGHT ADRENAL Normal [facility] Follow-Upon 01-09-2025 Follow-Up [id number] Aby Madrigal 1965 F Date Provider Department Center 01/09/2025 [id number], [facility] Family History Problem Relation Age of Onset Lung cancer Mother No Known Problems Father Lung cancer Sister Family Status - Relation Status Age at Mother Father Sister Level of Service:67986 LA OFFICE/OUTPATIENT ESTABLISHED LOW MDM 20 MIN Normal [facility] 36on 01-04-2025 36 Called patient's daughter [...] time. Melanie thanked me for the call [facility] 36on 01-03-2025 36 Voicemail. Patient's daughter called in, she thought Dr. Christie was going to order testing where they go in through the groin to see which kidney is dumping off excess hormones, she would like a call back. Normal [facility] Telephoneon 01-03-2025 Telephone [id number] Aby Madrigal 1965 F Date Provider Department Center 01/03/2025 [id number], [facility] ENDOCR [facility] Family History Problem Relation Age of Onset Lung cancer Mother No Known Problems Father Lung cancer Sister Family Status - Relation Status Age at Mother Father Sister Normal [facility] ALDOSTERONEon 01-02-2025 ALDOSTERONE (NG/DL) IN SER/PLAS 7.3 ng/dL Normal [facility] Comment on above: Result [...] reference intervals for this test in the [facility] Test Directory ([employer]). Performed By: [facility] [address] [place] [address] Asphalt Spreader: Navneet Simeon MD, PhD CLIA Number: [id number] Performed By: #### L [id number] #### [facility] (BEAKER) [address] [place] [address] ALDOSTERONE (NG/DL) IN SER/PLAS 14.2 ng/dL Normal [facility] Comment on above: Result [...] reference intervals for this test in the [facility] Test Directory ([employer]). Performed By: [facility] [address] [place] [address] Asphalt Spreader: Navneet Simeon MD, PhD CLIA Number: [id number] Performed By: #### L [id number] #### [facility] [address] [place] [address] CORTISOLon 01-02-2025 CORTISOL (UG/DL) IN SER/PLAS 3.6 ug/dL Normal 0-9 [facility] Comment on above: Performed By: #### L AB320 #### [facility] ([facility]) [address] [place] [address] CORTISOL (UG/DL) IN SER/PLAS 9.0 ug/dL Normal 6-23 [facility] Comment on above: Performed By: #### L AB320 #### [facility] (AKER) [address] [place] [address] NURSNOTEon 01-02-2025 NURSNOTE T-4=[id number], at this ti me VS taken, IV [...] pt up to BR and released. Normal [facility] POTASSIUMon 01-02-2025 Potassium [Moles/Vol] 3.9 mmol/L Normal 3.5-5.1 [facility] Comment on above: Performed By: #### L AB114 ####[facility] (BEAKER)[address] [place] [address] Potassium [Moles/Vol] 4.0 mmol/L Normal 3.5-5.1 [facility] Comment on above: Performed By: #### L AB557 #### [facility] (BEAKER) [address] [place] [address] RENIN ACTIVITYon 01-02-2025 RENIN ACTIVITY <0.1 Normal [facility] Comment on above: Result [...] developed and its performance characteristics determined by [facility]. It has not been cleared or approved by the US Food and Drug Administration. This test was performed in a CLIA certified laboratory and is intended for clinical purposes. Performed By: [facility] [address] [place] [address] Asphalt Spreader: Navneet Simeon MD, PhD CLIA Number: [id number] Performed By: #### L AB320 #### [facility] (BEAKER) [address] [place] [address] RENIN ACTIVITY <0.1 Normal [facility] Comment on above: Result [...] developed and its performance characteristics determined by [facility]. It has not been cleared or approved by the US Food and Drug Administration. This test was performed in a CLIA certified laboratory and is intended for clinical purposes. Performed By: [facility] [address] [place] [address] Asphalt Spreader: Navneet Simeon MD, PhD CLIA Number: [id number] Performed By: #### L AB15 #### [facility] (BEAKER) [address] [place] [address] Orders Only01-01-2025 Orders Only [id number] Strausbaugh,Aby S 1965 F Date Provider Department Center 01/01/2025 [id number] PERRIN [facility] [address] Second Fl Family History Problem Relation Age of Onset Lung cancer Mother No Known Problems Father Lung cancer Sister Family Status - Relation Status Age at Mother Father Sister Normal [facility] Orders Only [id number] Strausbaugh,Aby S 1965 F Date Provider Department Center 01/01/2025 1759-GIBSON GARCIA [facility] 2A Second Fl Family History Problem Relation Age of Onset Lung cancer Mother No Known Problems Father Lung cancer Sister Family Status - Relation Status Age at Mother Father Sister Normal [facility] Orders Onlyon 12-26-2024 Orders Only [id number] Strausbaugh,Aby S 1965 F Date Provider Department Center 12/26/2024 1623-DAX MONTERO [facility] 2A Second Fl Family History Problem Relation Age of Onset Lung cancer Mother No Known Problems Father Lung cancer Sister Family Status - Relation Status Age at Mother Father Sister Normal [facility] Orders Only [id number] Strausbaugh,Aby S 1965 F Date Provider Department Center 12/26/2024 Wolf2-RAMU PERRIN [facility] 2A Second Fl Family History Problem Relation Age of Onset Lung cancer Mother No Known Problems Father Lung cancer Sister Family Status - Relation Status Age at Mother Father Sister Normal [facility] Orders Only [id number] Strausbaugh,Aby S 1965 F Date Provider Department Center 12/26/2024 1883-USHA DURON [facility] 2A Second Fl Family History Problem Relation Age of Onset Lung cancer Mother No Known Problems Father Lung cancer Sister Family Status - Relation Status Age at Mother Father Sister Normal [facility] 3612-25-2024 36 Patient has not hear d from the [facility] about scheduling this, she is going to reach out to them directly, but could someone reach out to the [facility] about what's going on? [facility] Orders Onlyon 12-25-2024 Orders Only [id number] Strausbaugh,Aby S 1965 F Date Provider Department Center 12/25/2024 Ifeoma9-GIBSON GARCIA [facility] 2A Second Fl Family History Problem Relation Age of Onset Lung cancer Mother No Known Problems Father Lung cancer Sister Family Status - Relation Status Age at Mother Father Sister Normal [facility] Orders Only [id number] Strausbaugh,Aby S 1965 F Date Provider Department Center 12/25/2024 190-JOSE PRICE INF DCC Family History Problem Relation Age of Onset Lung cancer Mother No Known Problems Father Lung cancer Sister Family Status - Relation Status Age at Mother Father Sister Normal [facility] 12-12-2024 36 Antonio Butts signed the orders for saline infusion test back on Oct 12 (its a Therapy Plan) Can we call the [facility] and ask what more do they need to get the patient scheduled thanks [facility] 12-08-2024 36 Patient had not hear d from the [facility] about scheduling a Saline Infusion Test, when I look into the chart, I cannot find any orders Normal [facility] Telephoneon 12-08-2024 Telephone [id number] Aby Madrigal 1965 F Date Provider Department Center 12/08/2024 85577-[id number] [facility] ENDOCR [facility] Family History Problem Relation Age of Onset Lung cancer Mother No Known Problems Father Lung cancer Sister Family Status - Relation Status Age at Mother Father Sister Normal [facility] Abstracton 11-21-2024 Abstract [id number] Aby Madrigal 1965 F Date Provider Department Center 11/21/202457018-VDBNDQ-YSSDARA [facility] ONC DCC Family History Problem Relation Age of Onset Lung cancer Mother No Known Problems Father Lung cancer Sister Family Status - Relation Status Age at Mother Father Sister Normal [facility] CT CHEST WO IV CONTRASTon CT CHEST [...] Marlon Green MD. 5 Invalid Interpretation Code [facility] Office Visiton 10-26-2024 Follow-up visit [id number] Aby Madrigal S 1965 F Date Provider Department Center 10/26/2024 383-RICHA VIRAMONTES DCC ONC DCC Family History Problem Relation Age of Onset Lung cancer Mother No Known Problems Father Lung cancer Sister Family Status - Relation Status Age at Mother Father Sister Level of Service:32475 [place] OFFICE/OUTPATIENT ESTABLISHED SF MDM 10 MIN () Reason for Visit and Comments: Follow-up [129221] - F/U to review CT scan that was done today. [facility] 29on 10-03-2024 29 Addended by: FENG CHRISTIE on: 10/12/2024 10:02 AM Modules accepted: Orders [facility] 37on 10-03-2024 37 It was good to see y ou again Your recent CAT scan is reassuring showing me that your left adrenal mass has actually shrunk in size we no longer need to monitor this at all with any repeat CAT scans. To confirm if you have primary aldosteronism were going to do something called a saline infusion test at the [facility] they will be in contact with you likely within the next week. This is a 2-hour test in which we infused saline 2 L and assess any changes in your aldosterone level. This is in a monitored setting so you will not be alone. Normal [facility] Follow-Upon 10-03-2024 Follow-Up [id number] Aby Madrigal S 1965 F Date Provider Department Center 10/03/2024 [id number], WADE [facility] ENDOCR [facility] Family History Problem Relation Age of Onset Lung cancer Mother No Known Problems Father Lung cancer Sister Family Status - Relation Status Age at Mother Father Sister Level of Service:29213 [place] OFFICE/OUTPATIENT ESTABLISHED MOD MDM 30 MIN Reason for Visit and Comments: Follow-up [296118] Normal [facility] Office Visiton 09-04-2024 Follow-up visit [id number] Aby Madrigal S 1965 F Date Provider Department Center 09/04/2024 Octavio-GOMEZ [facility] Family History Problem Relation Age of Onset Lung cancer Mother No Known Problems Father Lung cancer Sister Family Status - Relation Status Age at Mother Father Sister Level of Service:76291 [place] OFFICE/OUTPATIENT ESTABLISHED MOD MDM 30 MIN Normal [facility] ALDOSTERONEon 08-29-2024 ALDOSTERONE (NG/DL) IN SER/PLAS 13.0 ng/dL Normal [facility] Comment on above: Result [...] reference intervals for this test in the [facility] Test Directory ([employer]). Performed By: [facility] [address] [place] [address] Asphalt Spreader: Navneet Simeon MD, PhD CLIA Number: [id number] Performed By: #### L [id number] #### [facility] ([facility] [address] [place] [address] Ron 08-29-2024 ALT [Catalytic activity/Vol] 25 U/L Normal 7-52 [facility] Comment on above: Performed By: #### L [id number] ####[facility] ([facility])[address] [place] [address] Riki 08-29-2024 AST [Catalytic activity/Vol] 21 U/L Normal 13-39 [facility] Comment on above: Performed By: #### L [id number] #### [facility] ([facility]) [address] [place] [address] BASIC METABOLIC PANELon 10-0 Anion gap [Moles/Vol] 12 mmol/L Normal 7-20 [facility] Comment on above: Performed By: #### L AB15 ####[facility] ([facility])[address] [place] [address] Calcium [Mass/Vol] 9.3 mg/dL Normal 8.6-10.3 [facility] Comment on above: Performed By: #### L AB15 ####[facility] ([facility] [place] [address] Chloride [Moles/Vol] 105 mmol/L Normal 98-107 [facility] Comment on above: Performed By: #### L AB15 ####[facility] ([facility] [place] [address] CO2 [Moles/Vol] 28 mmol/L Normal 21-31 [facility] Comment on above: Performed By: #### L AB15 ####[facility] ([facility])[address] [place] [address] Creatinine [Mass/Vol] 0.95 mg/dL Normal 0.60-1.20 [facility] Comment on above: Performed By: #### L AB15 ####[facility] ([facility])[address] [place] [address] GLOMERULAR FILTRATION RATE ML/MIN/1.73 SQ M.PREDICTED 68.6 mL/min/1.73m*2 Normal >60.0 [facility] Comment on above: Result Comment: [facility]???s estimated glomerular filtration rate (eGFR) [...] of individuals. Performed By: #### L AB15 ####[facility] ([facility] [place] [address] Glucose [Mass/Vol] 99 mg/dL Normal 70-100 [facility] Comment on above: Performed By: #### L AB15 ####[facility] ([facility])[address] [place] [address] Potassium [Moles/Vol] 3.6 mmol/L Normal 3.5-5.1 [facility] Comment on above: Performed By: #### L AB15 ####[facility] ([facility] [place] [address] Sodium [Moles/Vol] 141 mmol/L Normal 136-145 [facility] Comment on above: Performed By: #### L AB15 ####[facility] ([facility])[address] [place] [address] Urea nitrogen [Mass/Vol] 19 mg/dL Normal 7-25 [facility] Comment on above: Performed By: #### L [id number] ####[facility] ([facility])[address] [place] [address] UREA NITROGEN/CREATININE (MASS RATIO) IN SER/PLAS 20.0 Normal [facility] Comment on above: Performed By: #### L AB15 ####[facility] ([facility] [place] [address] CORTISOLon 08-29-2024 CORTISOL (UG/DL) IN SER/PLAS 6.1 ug/dL Normal 0-9 [facility] Comment on above: Performed By: #### L [id number] #### [facility] ([facility]) [address] [place] [address] CT ABDOMEN PELVIS W AND WO I [...] signed: Marybeth Maloney Vldtd Invalid Interpretation Code [facility] DEXAMETHASONE LEVELon 2023 DEXAMETHASONE <50.0 Normal [facility] Comment on above: Order Comment: [...] developed and its performance characteristics determined by [facility]. It has not been cleared or approved by the US Food and Drug Administration. This test was performed in a CLIA certified laboratory and is intended for clinical purposes. Performed By: [facility] [address] [place] [address] Asphalt Spreader: Navneet Simeon MD, PhD CLIA Number: [id number] Performed By: #### L [id number] #### [facility] ([facility]) [address] [place] [address] LIPID PANELon 08-29-2024 CHOL/HDL 2.4 mg/dL Normal [facility] Comment on above: Performed By: #### L [id number] #### [facility] ([facility]) [address] [place] [address] Cholesterol [Mass/Vol] 80 mg/dL Low 120-200 [facility] Comment on above: Performed By: #### L [id number] #### [facility] ([facility]) [address] [place] [address] Magnesium [Mass/Vol] 96 mg/dL Normal 40-149 [facility] Comment on above: Result Comment: TRIG LYCERIDE REFERENCE RANGE: 20 YEARS AND OLDER CARDIOVASCULAR RISK LESS THAN 150 mg/dL LOW RISK 150 TO 199 mg/dL BORDERLINE RISK 200 mg/dL AND GREATER HIGH RISK Performed By: #### L [id number] #### [facility] ([facility]) [address] [place] [address] Magnesium [Mass/Vol] 28 mg/dL Normal 0-160 [facility] Comment on above: Performed By: #### L [id number] #### [facility] ([facility] [address] [place] [address] Magnesium [Mass/Vol] 33 mg/dL Normal 23-92 [facility] Comment on above: Performed By: #### L [id number] #### [facility] ([facility]) [address] [place] [address] NON HDL CHOL. (LDL+VLDL) 47 Normal [facility] Comment on above: Performed By: #### L [id number] #### [facility] ([facility]) [address] [place] [address] TOTAL VLDL-C 19 mg/dL Normal 0-40 [facility] Comment on above: Performed By: #### L [id number] #### [facility] ([facility]) [address] [place] [address] Labon 08-29-2024 Lab [id number] Aby Madrigal 1965 F Date Provider Department [place] 08/29/2024 2245-[facility] OPD LAB RESOURCE [facility] OPD [place] Medical C Family History Problem Relation Age of Onset Lung cancer Mother No Known Problems Father Lung cancer Sister Family Status - Relation Status Age at Mother Father Sister Normal [facility] RENIN ACTIVITYon 08-29-2024 RENIN ACTIVITY <0.1 Normal [facility] Comment on above: Result [...] developed and its performance characteristics determined by [facility]. It has not been cleared or approved by the US Food and Drug Administration. This test was performed in a CLIA certified laboratory and is intended for clinical purposes. Performed By: [facility] [address] [place] [address] Asphalt Spreader: Navneet Simeon MD, PhD CLIA Number: [id number] Performed By: #### L [id number] #### [facility] ([facility]) [address] [place], [place] [id number] 36on 08-10-2024 36 Updated patient on [facility] blood test results and plan for f/u CT and appt scheduled for 10/26/24. [facility] Letter (Out)on 08-09-2024 Letter (Out) [id number] Sanjana Madrigalty S 1965 F Date Provider Department Center 08/09/2024 None-None [facility] ADMIT None Family History Problem Relation Age of Onset Lung cancer Mother No Known Problems Father Lung cancer Sister Family Status - Relation Status Age at Mother Father Sister [facility] 36on 08-08-2024 36 Called patient over [...] 03 She thanked me for the call [facility] Orders Onlyon 08-08-2024 Orders Only [id number] Rohan,Aby S 1965 F Date Provider Department Center 08/08/2024 RICHA MERINO ONC NICKI Family History Problem Relation Age of Onset Lung cancer Mother No Known Problems Father Lung cancer Sister Family Status - Relation Status Age at Mother Father Sister Normal [facility] Telephoneon 08-08-2024 Telephone [id number] RohanAby S 1965 F Date Provider Department Center 08/08/2024 FENG [place] [facility] ENDOCR [facility] Family History Problem Relation Age of Onset Lung cancer Mother No Known Problems Father Lung cancer Sister Family Status - Relation Status Age at Mother Father Sister Normal [facility] Telemedicineon 07-20-2024 Telemedicine [id number] Emmababebe,Aby S 1965 F Date Provider Department Center 07/20/2024 RICHA MERINO ONC NICKI Family History Problem Relation Age of Onset Lung cancer Mother No Known Problems Father Lung cancer Sister Family Status - Relation Status Age at Mother Father Sister Level of Service:84839 [place] PHYS/QHP TELEPHONE EVALUATION 21-30 MIN () Reason for Visit and Comments: 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 CT CHEST 04-21-24- PET 06-21-24 Films requested 07-18-24 HAVING HARD TIME GETTING FILMS FROM [facility] AGA[facility]. Ginny at [facility] ([phone] direct line) is working on sending them. CHECK [facility] FOR FILMS PLEASE Normal [facility] 37on 07-18-2024 37 It was [...] lab work done at one of these [facility] Lab Sites The results will then come straight to me I appreciate it [facility] [address], [place] Hours Wednesday - Wednesday 8 AM - 4PM (Closed 12 - 12:30 PM daily) Phone: [facility] [address] [place] Hours: Wednesday - Wednesday 6 AM - 5 PM Saturday: 7 AM - 2 PM Phone: [address] [place] Hours: Wednesday - Wednesday 7 AM - 3:30 PM Phone: [facility] [address] [place] Hours: Wednesday - Wednesday 7 AM - 5:30 PM Phone: [facility] [address] [facility] Hours: Wednesday - Wednesday 8 AM - 4:30 PM Phone: [facility] EDNURSon 07-18-2024 EDNURS ADR and relevant inf o reported to [facility] in pharmacy d/t safety net being down. Viet Kelly RN 07/18/24 1132 [facility] EDNURS SENT FROM MD OFFICE RE: LOW BP; RECENT DC FROM [facility] FOR SAME [facility] EDPROVon 07-18-2024 EDPROV HPI Chief Complaint [...] new meds yesterday. 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 [facility] Office Visiton 07-18-2024 Follow-up visit [id number] Aby Madrigal 1965 F Date Provider Department Center 07/18/2024 [id number], [facility] History Problem Relation Age of Onset Lung cancer Mother No Known Problems Father Lung cancer Sister Family Status - Relation Status Age at Mother Father Sister Level of Service:99104 [place] OFFICE/OUTPATIENT NEW MODERATE MDM 45 MINUTES Reason for Visit and Comments: Nodules [Other] Normal [facility] Follow-up visit [id number] Aby Madrigal 1965 F Date Provider Department [place] 07/18/2024 [id number], [facility] ENDOCR [facility] Family History Problem Relation Age of Onset Lung cancer Mother No Known Problems Father Lung cancer Sister Family Status - Relation Status Age at Mother Father Sister 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 I am calling you to follow [...] Patient Name Aby Madrigal Date 07/13/24 Normal [facility] Telephoneon 07-13-2024 Telephone [id number] Aby Madrigal 1965 F Date Provider Department Center 07/13/2024 Adela-GINNY GARCIA [facility] Family History Problem Relation Age of Onset Lung cancer Mother No Known Problems Father Lung cancer Sister Family Status - Relation Status Age at Mother Father Sister Reason for Visit and Comments: Hospital Follow-up [832] Normal [facility] 30on 07-12-2024 30 The patient [...] to address these barriers include . Normal [facility] ANTI-XA (HEPARIN LEVEL)on HEPARIN UNFRACTIONATED (U/ML) IN PPP BY CHROMOGENIC METHOD 0.60 IU/mL Normal 0.3-0.7 [facility] Comment on above: Order Comment: Check anti-Xa level every 6 hours while on heparin infusion, or per protocol. Result Comment: [place] roxaban and Apixaban will interfere with the anti Xa assay used to monitor UFH and LMWH. Performed By: #### L [id number] ####[facility] ([facility])[address] [place] [address] BASIC METABOLIC PANELon 06-23 Anion gap [Moles/Vol] 10 mmol/L Normal 7-20 [facility] Comment on above: Performed By: #### L AB15 #### [facility] ([facility]) [address] [place] [address] Calcium [Mass/Vol] 8.8 mg/dL Normal 8.6-10.3 [facility] Comment on above: Performed By: #### L AB15 #### [facility] ([facility]) [address] [place] [address] Chloride [Moles/Vol] 108 mmol/L High 98-107 [facility] Comment on above: Performed By: #### L AB15 #### [facility] ([facility]) [address] [place] [address] CO2 [Moles/Vol] 27 mmol/L Normal 21-31 [facility] Comment on above: Performed By: #### L AB15 #### [facility] ([facility]) [address] [place] [address] Creatinine [Mass/Vol] 0.89 mg/dL Normal 0.60-1.20 [facility] Comment on above: Performed By: #### L AB15 #### [facility] ([facility]) [address] [place] [address] GLOMERULAR FILTRATION RATE ML/MIN/1.73 SQ M.PREDICTED 74.2 mL/min/1.73m*2 Normal >60.0 [facility] Comment on above: Result Comment: [facility]???s estimated glomerular filtration rate (eGFR) [...] individuals. Performed By: #### L AB15 #### [facility] ([facility]) [address] [place] [address] Glucose [Mass/Vol] 109 mg/dL High 70-100 [facility] Comment on above: Performed By: #### L AB15 #### [facility] ([facility]) [address] [place] [address] Potassium [Moles/Vol] 3.4 mmol/L Low 3.5-5.1 [facility] Comment on above: Performed By: #### L AB15 #### [facility] ([facility]) [address] [place] [address] Sodium [Moles/Vol] 142 mmol/L Normal 136-145 [facility] Comment on above: Performed By: #### L AB15 #### [facility] ([facility]) [address] [place] [address] Urea nitrogen [Mass/Vol] 11 mg/dL Normal 7-25 [facility] Comment on above: Performed By: #### L AB15 #### [facility] ([facility]) [address] [place] [address] UREA NITROGEN/CREATININE (MASS RATIO) IN SER/PLAS 12.4 Normal [facility] Comment on above: Performed By: #### L AB15 #### [facility] ([facility]) [address] [place] [address] CBC WITH AUTO DIFFERENTIALon 07-12-2024 Basophils (Bld) [#/Vol] 0.04 10*3/uL Normal 0.00-0.20 [facility] Comment on above: Performed By: #### L [id number] #### [facility] ([facility] [address] [place] [address] Basophils/100 WBC (Bld) 0.6 % Normal 0.0-1.0 [facility] Comment on above: Performed By: #### L [id number] #### [facility] ([facility] [address] [place] [address] Eosinophils (Bld) [#/Vol] 0.22 10*3/uL Normal 0.00-0.50 [facility] Comment on above: Performed By: #### L [id number] #### [facility] (BE[facility]) [address] [place] [address] Eosinophils/100 WBC (Bld) 3.5 % Normal 0.0-6.0 [facility] Comment on above: Performed By: #### L [id number] #### [facility] ([facility]) [address] [place] [address] Erythrocyte distribution width (RBC) [Ratio] 14.5 % Normal 11.5-15.0 [facility] Comment on above: Performed By: #### L [id number] #### [facility] ([facility]) [address] [place] [address] ERYTHROCYTE MEAN CORPUSCULAR HEMOGLOBIN CONCENTRATION (G/DL) BY AUTOMATED 32.7 g/dL Normal 32.0-35.0 [facility] Comment on above: Performed By: #### L [id number] #### [facility] ([facility]) [address] [place] [address] Hematocrit (Bld) [Volume fraction] 34.2 % Low 36.0-48.0 [facility] Comment on above: Performed By: #### L [id number] #### [facility] ([facility]) [address] [place] [address] Hemoglobin (Bld) [Mass/Vol] 11.2 g/dL Low 12.0-15.0 [facility] Comment on above: Performed By: #### L [id number] #### [facility] ([facility]) [address] [place] [address] Immature granulocytes (Bld) [#/Vol] 0.01 10*3/uL Normal 0.00-0.20 [facility] Comment on above: Performed By: #### L [id number] #### [facility] ([facility]) [address] [place] [address] Immature granulocytes/100 WBC (Bld) 0.2 % Normal 0.0-1.0 [facility] Comment on above: Performed By: #### L [id number] #### [facility] ([facility]) [address] [place] [address] Lymphocytes (Bld) [#/Vol] 2.37 10*3/uL Normal 1.20-4.00 [facility] Comment on above: Performed By: #### L [id number] #### [facility] ([facility]) [address] [place] [address] Lymphocytes/100 WBC (Bld) 37.8 % Normal 20.0-45.0 [facility] Comment on above: Performed By: #### L [id number] #### [facility] ([facility]) [address] [place] [address] MCH (RBC) [Entitic mass] 27.4 pg Normal 27.0-33.0 [facility] Comment on above: Performed By: #### L [id number] #### [facility] ([facility]) [address] [place] [address] MCV (RBC) [Entitic vol] 83.6 fL Normal 82.0-98.0 [facility] Comment on above: Performed By: #### L [id number] #### [facility] ([facility]) [address] [place] [address] Monocytes (Bld) [#/Vol] 0.43 10*3/uL Normal 0.10-1.00 [facility] Comment on above: Performed By: #### L AB557 #### [facility] ([facility]) [address] [place] [address] Monocytes/100 WBC (Bld) 6.9 % Normal 5.0-12.0 [facility] Comment on above: Performed By: #### L [id number] #### [facility] ([facility]) [address] [place] [address] Neutrophils (Bld) [#/Vol] 3.20 10*3/uL Normal 1.60-7.60 [facility] Comment on above: Performed By: #### L [id number] #### [facility] ([facility]) [address] [place] [address] Neutrophils/100 WBC (Bld) 51.0 % Normal 40.0-72.0 [facility] Comment on above: Performed By: #### L [id number] #### [facility] ([facility]) [address] [place], [place] [address] NRBC (PER 100 WBCS) BY AUTOMATED COUNT 0.0 % Normal 0 [facility] Comment on above: Performed By: #### L [id number] #### [facility] (BEAKER) [address] [place] [address] PLATELETS (10*3/UL) IN BLOOD AUTOMATED COUNT 223 10*3/uL Normal 150-400 [facility] Comment on above: Performed By: #### L [id number] #### [facility] (BEAKER) [address] [place] [address] RBC (Bld) [#/Vol] 4.09 10*6/uL Normal 3.80-5.00 [facility] Comment on above: Performed By: #### L [id number] #### [facility] ([facility]) [address] [place] [address] WBC (Bld) [#/Vol] 6.27 10*3/uL Normal 4.00-10.60 [facility] Comment on above: Performed By: #### L [id number] #### [facility] ([facility]) [address] [place] [address] MAGNESIUMon 07-12-2024 Magnesium [Mass/Vol] 1.7 mg/dL Low 1.9-2.7 [facility] Comment on above: Performed By: #### L [id number] #### [facility] ([facility]) [address] [place] [address] POCT GLUCOSE METER UNSOLICIT ED RESULTSon 07-12-2024 Glucose [Mass/Vol] 102 mg/dL Normal 70-105 [facility] Comment on above: Order Comment: Waive d Testing in the ED is performed under the ED CLIA certificate #[id number]. Result Comment: [email or web address] Performed By: #### L [id number] #### [facility] ([facility] [address] [place] [address] TROPONIN Ion 07-12-2024 Troponin I.cardiac [Mass/Vol] 0.01 ng/mL Normal 0.00-0.04 [facility] Comment on above: Performed By: #### L [id number] #### [facility] ([facility] [address] [facility] [place] [address] 30on 07-11-2024 30 The patient is Moderately [...] and maintained or improved Outcome: Progressing Normal [facility] 30 The patient is Moderately [...] to address these barriers include . Normal [facility] ALDOSTERONEon 07-11-2024 ALDOSTERONE (NG/DL) IN SER/PLAS 4.9 ng/dL Normal [facility] Comment on above: Result [...] reference intervals for this test in the [facility] ([employer]). Performed By: [facility] [address] [place] [id number] Asphalt Spreader: Navneet Simeon MD, PhD CLIA Number: [id number] Performed By: #### L [id number] #### [facility] (BEAKER) [address] [place] [address] ANTI-XA (HEPARIN LEVEL)on HEPARIN UNFRACTIONATED (U/ML) IN PPP BY CHROMOGENIC METHOD 0.42 IU/mL Normal 0.3-0.7 [facility] Comment on above: Order Comment: Check anti-Xa level every 6 hours while on heparin infusion, or per protocol. Result Comment: Radha roxaban and Apixaban will interfere with the anti Xa assay used to monitor UFH and LMWH. Performed By: #### L [id number] #### [facility] (BEAKER) [address] [place] [address] HEPARIN UNFRACTIONATED (U/ML) IN PPP BY CHROMOGENIC METHOD 0.20 IU/mL Low 0.3-0.7 [facility] Comment on above: Order Comment: Check anti-Xa level every 6 hours while on heparin infusion, or per protocol. Result Comment: [place] roxaban and Apixaban will interfere with the anti Xa assay used to monitor UFH and LMWH. Performed By: #### L [id number] #### [facility] (BEAKER) [address] [place] [address] APTTon 07-11-2023 ACTIVATED PARTIAL THROMBOPLASTIN TIME IN PPP BY COAGULATION ASSAY 43.0 Seconds High 25.0-35.0 [facility] Comment on above: Result Comment: Clin ical significance of the APTT is questionable in the presence of heparin. Performed By: #### L [id number] #### [facility] (BEAKER) [address] [place] [address] BASIC METABOLIC PANELon 06-23 Anion gap [Moles/Vol] 9 mmol/L Normal 7-20 [facility] Comment on above: Performed By: #### L [id number] #### [facility]) [address] [place] [address] Calcium [Mass/Vol] 8.8 mg/dL Normal 8.6-10.3 [facility] Comment on above: Performed By: #### L [id number] #### [facility] (BEAKER) [address] [place] [address] Chloride [Moles/Vol] 108 mmol/L High 98-107 [facility] Comment on above: Performed By: #### L [id number] #### [facility] ([facility]) [address] [place] [address] CO2 [Moles/Vol] 28 mmol/L Normal 21-31 [facility] Comment on above: Performed By: #### L [id number] #### [facility] ([facility]) [address] [place] [address] Creatinine [Mass/Vol] 1.09 mg/dL Normal 0.60-1.20 [facility] Comment on above: Performed By: #### L [id number] #### [facility] ([facility]) [address] [place] [address] GLOMERULAR FILTRATION RATE ML/MIN/1.73 SQ M.PREDICTED 58.2 mL/min/1.73m*2 Low >60.0 [facility] Comment on above: Result Comment: [facility]???s estimated glomerular filtration rate (eGFR) [...] group of individuals. Performed By: #### L [id number] #### [facility] ([facility]) [address] [place] [address] Glucose [Mass/Vol] 113 mg/dL High 70-100 [facility] Comment on above: Performed By: #### L [id number] #### [facility] ([facility]) [address] [place] [address] Potassium [Moles/Vol] 3.4 mmol/L Low 3.5-5.1 [facility] Comment on above: Performed By: #### L [id number] #### [facility] ([facility]) [address] [place] [address] Sodium [Moles/Vol] 142 mmol/L Normal 136-145 [facility] Comment on above: Performed By: #### L [id number] #### [facility] ([facility]) [address] [place] [address] Urea nitrogen [Mass/Vol] 14 mg/dL Normal 7-25 [facility] Comment on above: Performed By: #### L [id number] #### [facility] ([facility]) [address] [place] [address] UREA NITROGEN/CREATININE (MASS RATIO) IN SER/PLAS 12.8 Normal [facility] Comment on above: Performed By: #### L [id number] #### [facility] ([facility]) [address] [place] [address] CBC WITH AUTO DIFFERENTIALon 07-11-2024 Basophils (Bld) [#/Vol] 0.04 10*3/uL Normal 0.00-0.20 [facility] Comment on above: Performed By: #### L [id number] ####[facility] ([facility])[address] [place] [address] Basophils/100 WBC (Bld) 0.6 % Normal 0.0-1.0 [facility] Comment on above: Performed By: #### L [id number] ####[facility] (BEAKER)[address] [place] [address] Eosinophils (Bld) [#/Vol] 0.16 10*3/uL Normal 0.00-0.50 [facility] Comment on above: Performed By: #### L [id number] ####[facility] (BEAKER)[address] [place] [address] Eosinophils/100 WBC (Bld) 2.2 % Normal 0.0-6.0 [facility] Comment on above: Performed By: #### L [id number] ####[facility] (BEAKER)[address] [place] [address] Erythrocyte distribution width (RBC) [Ratio] 14.6 % Normal 11.5-15.0 [facility] Comment on above: Performed By: #### L [id number] ####[facility] (BEAKER)[address] [place] [address] ERYTHROCYTE MEAN CORPUSCULAR HEMOGLOBIN CONCENTRATION (G/DL) BY AUTOMATED 32.0 g/dL Normal 32.0-35.0 [facility] Comment on above: Performed By: #### L [id number] ####[facility] (BEAKER)[address] [place] [address] Hematocrit (Bld) [Volume fraction] 36.2 % Normal 36.0-48.0 [facility] Comment on above: Performed By: #### L [id number] ####[facility] (BEAKER)[address] [place] [address] Hemoglobin (Bld) [Mass/Vol] 11.6 g/dL Low 12.0-15.0 [facility] Comment on above: Performed By: #### L [id number] ####[facility] (BEAKER)[address] [place] [address] Immature granulocytes (Bld) [#/Vol] 0.02 10*3/uL Normal 0.00-0.20 [facility] Comment on above: Performed By: #### L [id number] ####[facility] (BEAKER)[address] [place] [address] Immature granulocytes/100 WBC (Bld) 0.3 % Normal 0.0-1.0 [facility] Comment on above: Performed By: #### L [id number] ####[facility] (BEAKER)[address] [place] [address] Lymphocytes (Bld) [#/Vol] 2.34 10*3/uL Normal 1.20-4.00 [facility] Comment on above: Performed By: #### L [id number] ####[facility] (BEAKER)[address] [place] [address] Lymphocytes/100 WBC (Bld) 32.6 % Normal 20.0-45.0 [facility] Comment on above: Performed By: #### L [id number] ####[facility] (BEAKER)[address] [place] [address] MCH (RBC) [Entitic mass] 27.2 pg Normal 27.0-33.0 [facility] Comment on above: Performed By: #### L [id number] ####[facility] (BEAKER)[address] [place] [address] MCV (RBC) [Entitic vol] 85.0 fL Normal 82.0-98.0 [facility] Comment on above: Performed By: #### L [id number] ####[facility] (BEAKER)[address] [place] [address] Monocytes (Bld) [#/Vol] 0.49 10*3/uL Normal 0.10-1.00 [facility] Comment on above: Performed By: #### L [id number] ####[facility] (BEAKER)[address] [place] [address] Monocytes/100 WBC (Bld) 6.8 % Normal 5.0-12.0 [facility] Comment on above: Performed By: #### L [id number] ####[facility] (BEAKER)[address] [place] [address] Neutrophils (Bld) [#/Vol] 4.13 10*3/uL Normal 1.60-7.60 [facility] Comment on above: Performed By: #### L [id number] ####[facility] ([facility])[address] [place] [address] Neutrophils/100 WBC (Bld) 57.5 % Normal 40.0-72.0 [facility] Comment on above: Performed By: #### L [id number] ####[facility] ([facility])[address] [place] [address] NRBC (PER 100 WBCS) BY AUTOMATED COUNT 0.0 % Normal 0 [facility] Comment on above: Performed By: #### L [id number] ####[facility] (BEAKER)[address] [place] [address] PLATELETS (10*3/UL) IN BLOOD AUTOMATED COUNT 245 10*3/uL Normal 150-400 [facility] Comment on above: Performed By: #### L [id number] ####[facility] (BEAKER)[address] [place], [place] [address] RBC (Bld) [#/Vol] 4.26 10*6/uL Normal 3.80-5.00 [facility] Comment on above: Performed By: #### L [id number] ####[facility] (DEMETRAAKER)[address] [place] [address] WBC (Bld) [#/Vol] 7.18 10*3/uL Normal 4.00-10.60 [facility] Comment on above: Performed By: #### L [id number] ####[facility] ([facility]AR[facility])[address] [place] [address] CONSULTon 07-11-2024 CONSULT -- Attestation signed by [...] Brown is the endocrine surgeon in the [facility] that would be most appropriate and [...] patient is presenting as a transfer from [facility] for the evaluation of chest pain. [...] medical history of Abnormal ECG, Diabetes mellitus ([facility]/HCC), Hyperlipidemia, Hypertension, Obstructive sleep apnea, Panic attacks, and Stroke (CMS/[facility]). Surgical History She has a [...] Value Ventricular Rate 56 Atrial Rate 56 LA Interval 180 QRS DURATION 94 QT Interval 430 QTC (more content not included)... Normal [facility] EDPROVon 07-11-2024 EDPROV HPI Chief [...] Pt states she was trasnfered here from [place] to be transferred to cardiology. Pt states she had a cardiac stent placed last week. She denies fever, coughing, vomiting, abdominal pain. She admits diarrhea. She felt better when given ativan and worse when she was given morphine. She has had her gallbladder removed. History provided by: Patient aerial photograph interpreter used: No Chest Pain Associated symptoms: no abdominal pain, no cough, no fever and no vomiting [place] Coma Scale Score: 15 Patient History Past [...] signing this emergency patient record, the Emergency Physician/EQUIPMENT DETAILER/PA-C attests that all entries made into the electronic medical record by the scribe prior to the Physician/EQUIPMENT DETAILER/PA-C signature reflect an accurate accounting of the evaluation and care rendered by that Emergency Physician/EQUIPMENT DETAILER/PA-C. The Emergency Physician/EQUIPMENT DETAILER/PA-C assumes full responsibility for those entries. The Emergency Physician/EQUIPMENT DETAILER/PA-C also attests that any patient testing or treatment that was instituted by nursing staff. Normal [facility] EDPROV HPI Chief Complaint Patient [...] Pt states she was trasnfered here from [place] to be transferred to cardiology. Pt states she had a cardiac stent placed last week. She denies fever, coughing, vomiting, abdominal pain. She admits diarrhea. She felt better when given ativan and worse when she was given morphine. She has had her gallbladder removed. History provided by: Patient aerial photograph interpreter used: No Chest Pain Associated symptoms: [...] 07/11/24 1256 NSTEMI (non-ST elevated myocardial infarction) ([facility]) Medical Decision Making Amount and/or Complexity of Data Reviewed Labs: ordered. Decision-making details documented in ED Course. ECG/medicine tests: ordered and independent interpretation performed. Decision-making details documented in ED Course. Risk Drug therapy requiring intensive monitoring for toxicity. Decision regarding hospitalization. Minor surgery with identified risk factors. I, Basilia diallo (more content not included)... Invalid Interpretation Code [facility] POCT GLUCOSE METER UNSOLICIT ED RESULTSon 07-11-2024 Glucose [Mass/Vol] 122 mg/dL High 70-105 [facility] Comment on above: Order Comment: Waive d Testing in the ED is performed under the ED CLIA certificate #[id number]. Result Comment: [email or web address] Performed By: #### L [id number] #### [facility] (BEAKER) [address] [place] [address] PROTIME-INRon 07-11-2024 INR IN PPP BY COAGULATION ASSAY 1.00 Normal 0.90-1.10 [facility] Comment on above: Result [...] CHEST 1995;108:[id number]. Performed By: #### L [id number] ####[facility] [employer])[address] [place] [address] PROTHROMBIN TIME (PT) IN PPP BY COAGULATION ASSAY 13.2 Seconds Normal 12.3-14.8 [facility] Comment on above: Performed By: #### L [id number] ####[facility] ([employer])[address] [place] [address] RENIN ACTIVITYon 07-11-2024 RENIN ACTIVITY <0.1 Normal [facility] Comment on above: Result [...] developed and its performance characteristics determined by [facility]. It has not been cleared or approved by the [place] Food and Drug Administration. This test was performed in a CLIA certified laboratory and is intended for clinical purposes. Performed By: [facility] [address] [place] [address] Asphalt Spreader: Navneet Simeon MD, PhD CLIA Number: [id number] Performed By: #### L [id number] #### [facility] ([facility]) [address] [place] [address] TROPONIN Ion 07-11-2024 Troponin I.cardiac [Mass/Vol] 0.01 ng/mL Normal 0.00-0.04 [facility] Comment on above: Performed By: #### L [id number] #### [facility] (BEAKER) [address] [place] [address] Office Visiton 07-10-2024 Follow-up visit [id number] Aby Madrigal 1965 F Date Provider Department Center 07/10/2024 [id number] GRADY Family History Problem Relation Age of Onset Lung cancer Mother No Known Problems Father Lung cancer Sister Family Status - Relation Status Age at Mother Father Sister Level of Service:49825 LA OFFICE/OUTPATIENT ESTABLISHED MOD MDM 30 MIN Reason for Visit and Comments: Coronary Artery Disease [187] Post-Cath [731] Normal [facility] 36on 07-03-2024 36 Post Discharge Call Good morning, I am Ginny Jose, RN a lead nurse from [facility]. I am calling you to follow [...] Patient Name Aby Madrigal Date 07/03/24 Normal [facility] Telephoneon 07-03-2024 Telephone [id number] Aby Madrigal 1965 F Date Provider Department Center 07/03/2024 Adela-GINNY GARCIA [facility] Family History Problem Relation Age of Onset Lung cancer Mother No Known Problems Father Lung cancer Sister Family Status - Relation Status Age at Mother Father Sister Reason for Visit and Comments: Hospital Follow-up [832] Normal [facility] 30on 07-01-2024 30 The patient [...] and maintained or improved Outcome: Progressing Normal [facility] BASIC METABOLIC PANELon 08-1 0-2024 Anion gap [Moles/Vol] 14 mmol/L Normal 7-20 [facility] Comment on above: Performed By: #### L [id number] #### [facility] ([facility]) [address] [place] [address] Calcium [Mass/Vol] 8.2 mg/dL Low 8.6-10.3 [facility] Comment on above: Performed By: #### L [id number] #### [facility] ([facility]) [address] [place] [address] Chloride [Moles/Vol] 106 mmol/L Normal 98-107 [facility] Comment on above: Performed By: #### L [id number] #### [facility] ([facility]) [address] [place] [address] CO2 [Moles/Vol] 25 mmol/L Normal 21-31 [facility] Comment on above: Performed By: #### L [id number] #### [facility] ([facility]) [address] [place] [address] Creatinine [Mass/Vol] 0.91 mg/dL Normal 0.60-1.20 [facility] Comment on above: Performed By: #### L AB15 #### [facility] ([facility]) [address] [place] [address] GLOMERULAR FILTRATION RATE ML/MIN/1.73 SQ M.PREDICTED 72.2 mL/min/1.73m*2 Normal >60.0 [facility] Comment on above: Result Comment: [facility]???s estimated glomerular filtration rate (eGFR) [...] individuals. Performed By: #### L [id number] #### [facility] [address] [place] [address] Glucose [Mass/Vol] 101 mg/dL High 70-100 [facility] Comment on above: Performed By: #### L [id number] #### [facility] [address] [place] [address] Potassium [Moles/Vol] 3.5 mmol/L Normal 3.5-5.1 [facility] Comment on above: Performed By: #### L [id number] #### [facility] ([facility]) [address] [place] [address] Sodium [Moles/Vol] 141 mmol/L Normal 136-145 [facility] Comment on above: Performed By: #### L [id number] #### [facility] ([facility]) [address] [place] [address] Urea nitrogen [Mass/Vol] 13 mg/dL Normal 7-25 [facility] Comment on above: Performed By: #### L [id number] #### [facility] ([facility]) [address] [place] [address] UREA NITROGEN/CREATININE (MASS RATIO) IN SER/PLAS 14.3 Normal [facility] Comment on above: Performed By: #### L AB15 #### [facility] ([facility]) [address] [place] [address] CBCon 07-01-2024 Erythrocyte distribution width (RBC) [Ratio] 15.4 % High 11.5-15.0 [facility] Comment on above: Performed By: #### L [id number] ####[facility] ([facility])[address] [place] [address] ERYTHROCYTE MEAN CORPUSCULAR HEMOGLOBIN CONCENTRATION (G/DL) BY AUTOMATED 32.1 g/dL Normal 32.0-35.0 [facility] Comment on above: Performed By: #### L [id number] ####[facility] [place] [address] Hematocrit (Bld) [Volume fraction] 38.6 % Normal 36.0-48.0 [facility] Comment on above: Performed By: #### L [id number] ####[facility] ([facility])[address] [place] [address] Hemoglobin (Bld) [Mass/Vol] 12.4 g/dL Normal 12.0-15.0 [facility] Comment on above: Performed By: #### L [id number] ####[facility] ([facility])[address] [place] [address] MCH (RBC) [Entitic mass] 26.9 pg Low 27.0-33.0 [facility] Comment on above: Performed By: #### L [id number] ####[facility] ([facility])[address] [place] [address] MCV (RBC) [Entitic vol] 83.7 fL Normal 82.0-98.0 [facility] Comment on above: Performed By: #### L [id number] ####[facility] ([facility])[address] [place] [address] PLATELETS (10*3/UL) IN BLOOD AUTOMATED COUNT 238 10*3/uL Normal 150-400 [facility] Comment on above: Performed By: #### L [id number] ####[facility] ([facility])[address] [place] [address] RBC (Bld) [#/Vol] 4.61 10*6/uL Normal 3.80-5.00 [facility] Comment on above: Performed By: #### L [id number] ####[facility] ([facility])[address] [place] [address] WBC (Bld) [#/Vol] 7.04 10*3/uL Normal 4.00-10.60 [facility] Comment on above: Performed By: #### L [id number] ####[facility] ([facility] [place] [address] LIPID PANELon 07-01-2024 CHOL/HDL 3.8 mg/dL Normal [facility] Comment on above: Performed By: #### L [id number] #### [facility] [address] [place] [address] Cholesterol [Mass/Vol] 128 mg/dL Normal 120-200 [facility] Comment on above: Performed By: #### L [id number] #### [facility] ([facility]) [address] [place] [address] Magnesium [Mass/Vol] 87 mg/dL Normal 40-149 [facility] Comment on above: Result Comment: TRIG LYCERIDE REFERENCE RANGE: 20 YEARS AND OLDER CARDIOVASCULAR RISK LESS THAN 150 mg/dL LOW RISK 150 TO 199 mg/dL BORDERLINE RISK 200 mg/dL AND GREATER HIGH RISK Performed By: #### L [id number] #### [facility] ([facility]) [address] [place] [address] Magnesium [Mass/Vol] 77 mg/dL Normal 0-160 [facility] Comment on above: Performed By: #### L [id number] #### [facility] ([facility]) [address] [place] [address] Magnesium [Mass/Vol] 34 mg/dL Normal 23-92 [facility] Comment on above: Performed By: #### L [id number] #### [facility] ([facility]) [address] [place] [address] NON HDL CHOL. (LDL+VLDL) 94 Normal [facility] Comment on above: Performed By: #### L [id number] #### [facility] ([facility]) [address] [place] [address] TOTAL VLDL-C 17 mg/dL Normal 0-40 [facility] Comment on above: Performed By: #### L [id number] #### [facility] ([facility]) [address] [place] [address] MAGNESIUMon 07-01-2024 Magnesium [Mass/Vol] 2.0 mg/dL Normal 1.9-2.7 [facility] Comment on above: Performed By: #### L [id number] ####[facility] ([facility])[address] [facility] [address] NURSNOTEon 07-01-2024 NURSNOTE Discharge instructio ns given, reviewed, questions, answered, signed, copy received. Normal [facility] POCT GLUCOSE METER UNSOLICIT ED RESULTSon 07-01-2024 Glucose [Mass/Vol] 124 mg/dL High 70-105 [facility] Comment on above: Order Comment: Waive d Testing in the ED is performed under the ED CLIA certificate #[id number]. Result Comment: [email or web address] Performed By: #### L [id number] ####[facility] ([facility])[address] [place] [address] Glucose [Mass/Vol] 106 mg/dL High 70-105 [facility] Comment on above: Order Comment: Waive d Testing in the ED is performed under the ED CLIA certificate #[id number]. Result Comment: [email or web address] Performed By: #### L [id number] #### [facility] ([facility]) [address] [place] [address] TROPONIN Ion 07-01-2024 Troponin I.cardiac [Mass/Vol] 0.09 ng/mL High 0.00-0.04 [facility] Comment on above: Performed By: #### L [id number] ####[facility] ([facility])[address] [facility] [address] 30on 06-30-2024 30 The patient is Moderately Stable - Low risk of patient condition declining or worsening The patient's goals for the shift include comfort, rest The clinical goals for the shift include stable vitals, comfort Problem: Pain - Adult Goal: Verbalizes/displays adequate comfort level or baseline comfort level Outcome: Not Progressing Normal [facility] 30 Daily Case Managemen t [...] PT Recommendations: OT Recommendations: New Consults: Normal [facility] 30 The patient is Moderately Stable - Low risk of patient condition declining or worsening The patient's goals for the shift include COMFORT The clinical goals for the shift include VSS Over the shift, the patient did not make progress toward the following goals. Barriers to progression include . Recommendations to address these barriers include . Normal [facility] ANTI-XA (HEPARIN LEVEL)on HEPARIN UNFRACTIONATED (U/ML) IN PPP BY CHROMOGENIC METHOD 0.64 IU/mL Normal 0.3-0.7 [facility] Comment on above: Order Comment: Check anti-Xa level every 6 hours while on heparin infusion, or per protocol. Result Comment: Radha roxaban and Apixaban will interfere with the anti Xa assay used to monitor UFH and LMWH. Performed By: #### L [id number] ####[facility] ([facility])[address] [place] [address] BASIC METABOLIC PANELon 08-0 Anion gap [Moles/Vol] 11 mmol/L Normal 7-20 [facility] Comment on above: Performed By: #### L [id number] #### [facility] ([facility]) [address] [place] [address] Calcium [Mass/Vol] 8.3 mg/dL Low 8.6-10.3 [facility] Comment on above: Performed By: #### L [id number] #### [facility] ([facility]) [address] [place] [address] Chloride [Moles/Vol] 110 mmol/L High 98-107 [facility] Comment on above: Performed By: #### L [id number] #### [facility] ([facility]) [address] [place] [address] CO2 [Moles/Vol] 26 mmol/L Normal 21-31 [facility] Comment on above: Performed By: #### L [id number] #### [facility] ([facility]) [address] [place] [address] Creatinine [Mass/Vol] 0.81 mg/dL Normal 0.60-1.20 [facility] Comment on above: Performed By: #### L [id number] #### [facility] ([facility]) [address] [place] [address] GLOMERULAR FILTRATION RATE ML/MIN/1.73 SQ M.PREDICTED 83.1 mL/min/1.73m*2 Normal >60.0 [facility] Comment on above: Result Comment: [facility]???s estimated glomerular filtration rate (eGFR) [...] individuals. Performed By: #### L [id number] #### [facility] ([facility]) [address] [place] [address] Glucose [Mass/Vol] 110 mg/dL High 70-100 [facility] Comment on above: Performed By: #### L [id number] #### [facility] ([facility]) [address] [place] [address] Potassium [Moles/Vol] 3.7 mmol/L Normal 3.5-5.1 [facility] Comment on above: Performed By: #### L [id number] #### [facility] ([facility]) [address] [place] [address] Sodium [Moles/Vol] 143 mmol/L Normal 136-145 [facility] Comment on above: Performed By: #### L [id number] #### [facility] ([facility]) [address] [place] [address] Urea nitrogen [Mass/Vol] 10 mg/dL Normal 7-25 [facility] Comment on above: Performed By: #### L [id number] #### [facility] [address] [place] [address] UREA NITROGEN/CREATININE (MASS RATIO) IN SER/PLAS 12.3 Normal [facility] Comment on above: Performed By: #### L [id number] #### [facility] ([facility]) [address] [place] [address] CBCon 06-30-2024 Erythrocyte distribution width (RBC) [Ratio] 15.3 % High 11.5-15.0 [facility] Comment on above: Performed By: #### L [id number] #### [facility] [address] [place] [address] ERYTHROCYTE MEAN CORPUSCULAR HEMOGLOBIN CONCENTRATION (G/DL) BY AUTOMATED 31.3 g/dL Low 32.0-35.0 [facility] Comment on above: Performed By: #### L [id number] #### [facility] [address] [place] [address] Hematocrit (Bld) [Volume fraction] 36.7 % Normal 36.0-48.0 [facility] Comment on above: Performed By: #### L [id number] #### [facility] [address] [place] [address] Hemoglobin (Bld) [Mass/Vol] 11.5 g/dL Low 12.0-15.0 [facility] Comment on above: Performed By: #### L [id number] #### [facility] ([facility]) [address] [place] [address] MCH (RBC) [Entitic mass] 26.9 pg Low 27.0-33.0 [facility] Comment on above: Performed By: #### L [id number] #### [facility] ([facility]) [address] [facility] [place] [address] MCV (RBC) [Entitic vol] 85.7 fL Normal 82.0-98.0 [facility] Comment on above: Performed By: #### L [id number] #### [facility] ([facility]) [address] [facility] [place] [address] PLATELETS (10*3/UL) IN BLOOD AUTOMATED COUNT 243 10*3/uL Normal 150-400 [facility] Comment on above: Performed By: #### L [id number] #### [facility] ([facility]) [address] [place] [address] RBC (Bld) [#/Vol] 4.28 10*6/uL Normal 3.80-5.00 [facility] Comment on above: Performed By: #### L [id number] #### [facility] ([facility]) [address] [facility] [place] [address] WBC (Bld) [#/Vol] 7.41 10*3/uL Normal 4.00-10.60 [facility] Comment on above: Performed By: #### L [id number] #### [facility] ([facility]) [address] [facility] [place] [address] CONSULTon 06-30-2024 CONSULT Cardiology Consult Note Reason for Consult: NSTEMI, transfer from [facility] HPI: Aby Madrigal, a 59 y.o. female patient, is transferred from [facility] for continuity of care. Past medical history includes: HTN History of TIA DMII HLD SURESH Overweight Patient reports that 3 days ago, she woke up in the mid of the night with indigestion, and a feeling fullness, but no pressure like chest pain. She presented to [facility], where she was found to be [...] Value Ventricular Rate 71 Atrial Rate 71 LA Interval 176 QRS DURATION 92 QT Interval 424 QTC CALCULATION(BAZETT) 460 P Citra 52 R-Citra 19 T Wave Citra 164 Impression Normal sinus rhythm Left ventricular [...] lead Normal sinu (more content not included)... [facility] HPon 06-30-2024 HP H&P reviewed. The patient was examined and there are no changes to the H&P. 59 y.o. year old female with a PMHx significant for DM2, hypertension presents a direct mission from [facility] with a chief complaint of chest [...] to proceed. Signed, Yris Oakley MD PGY-4 [employer] Pager: [phone] [facility] POCT GLUCOSE METER UNSOLICIT ED RESULTSon 06-30-2024 Glucose [Mass/Vol] 170 mg/dL High 70-105 [facility] Comment on above: Order Comment: Waive d Testing in the ED is performed under the ED CLIA certificate #[id number]. Result Comment: [email or web address] Performed By: #### L [id number] #### [facility] ([facility]) [address] [place] [address] Glucose [Mass/Vol] 129 mg/dL High 70-105 [facility] Comment on above: Order Comment: Waive d Testing in the ED is performed under the ED CLIA certificate #[id number]. Result Comment: [email or web address] Performed By: #### L [id number] #### [facility] ([facility]) [address] [place] [address] Glucose [Mass/Vol] 167 mg/dL High 70-105 [facility] Comment on above: Order Comment: Waive d Testing in the ED is performed under the ED CLIA certificate #[id number]. Result Comment: [email or web address] Performed By: #### L [id number] ####[facility] ([facility])[address] [place] [address] TROPONIN Ion 06-30-2024 Troponin I.cardiac [Mass/Vol] 0.07 ng/mL High 0.00-0.04 [facility] Comment on above: Performed By: #### L [id number] ####[facility] ([facility])[address] [place] [address] Troponin I.cardiac [Mass/Vol] 0.10 ng/mL High 0.00-0.04 [facility] Comment on above: Performed By: #### L [id number] ####[facility] ([facility])[address] [place] [address] Troponin I.cardiac [Mass/Vol] 0.11 ng/mL Critically high 0.00-0.04 [facility] Comment on above: Result Comment: CEE CARR INITIAL CRITICAL HIGH; RESPUN AND RETESTED Performed By: #### L [id number] #### [facility] ([facility]) [address] [place] [address] 30on 06-29-2024 30 The patient is Moderately Stable - Low risk of patient condition declining or worsening The patient's goals for the shift include COMFORT The clinical goals for the shift include VSS Normal [facility] APTTon 06-29-2024 ACTIVATED PARTIAL THROMBOPLASTIN TIME IN PPP BY COAGULATION ASSAY 34.5 Seconds Normal 25.0-35.0 [facility] Comment on above: Order Comment: Basel ine aPTT before initiating heparin infusion. Result Comment: Clin ical significance of the APTT is questionable in the presence of heparin. Performed By: #### L [id number] #### [facility] ([facility]) [address] [place] [address] B-TYPE NATRIURETIC PEPTIDEon 06-29-2024 Natriuretic peptide B (Bld) [Mass/Vol] 222 pg/mL High 0-100 [facility] Comment on above: Performed By: #### L [id number] #### [facility] ([facility]) [address] [place] [address] CBC WITH AUTO DIFFERENTIALon 06-29-2024 Basophils (Bld) [#/Vol] 0.05 10*3/uL Normal 0.00-0.20 [facility] Comment on above: Performed By: #### L [id number] #### [facility] ([facility]) [address] [place] [address] Basophils/100 WBC (Bld) 0.6 % Normal 0.0-1.0 [facility] Comment on above: Performed By: #### L [id number] #### [facility] ([facility]) [address] [place] [address] Eosinophils (Bld) [#/Vol] 0.18 10*3/uL Normal 0.00-0.50 [facility] Comment on above: Performed By: #### L [id number] #### [facility] ([facility] [address] [place] [address] Eosinophils/100 WBC (Bld) 2.1 % Normal 0.0-6.0 [facility] Comment on above: Performed By: #### L [id number] #### [facility] ([facility]) [address] [place] [address] Erythrocyte distribution width (RBC) [Ratio] 14.9 % Normal 11.5-15.0 [facility] Comment on above: Performed By: #### L [id number] #### [facility] ([facility] [address] [place] [address] ERYTHROCYTE MEAN CORPUSCULAR HEMOGLOBIN CONCENTRATION (G/DL) BY AUTOMATED 32.9 g/dL Normal 32.0-35.0 [facility] Comment on above: Performed By: #### L [id number] #### [facility] ([facility]) [address] [place] [address] Hematocrit (Bld) [Volume fraction] 35.9 % Low 36.0-48.0 [facility] Comment on above: Performed By: #### L [id number] #### [facility] ([facility]) [address] [place] [address] Hemoglobin (Bld) [Mass/Vol] 11.8 g/dL Low 12.0-15.0 [facility] Comment on above: Performed By: #### L [id number] #### [facility] ([facility]) [address] [place] [address] Immature granulocytes (Bld) [#/Vol] 0.03 10*3/uL Normal 0.00-0.20 [facility] Comment on above: Performed By: #### L [id number] #### [facility] ([facility]) [address] [place] [address] Immature granulocytes/100 WBC (Bld) 0.3 % Normal 0.0-1.0 [facility] Comment on above: Performed By: #### L [id number] #### [facility] ([facility]) [address] [facility] [place] [address] Lymphocytes (Bld) [#/Vol] 2.02 10*3/uL Normal 1.20-4.00 [facility] Comment on above: Performed By: #### L [id number] #### [facility] ([facility]) [address] [place] [address] Lymphocytes/100 WBC (Bld) 23.5 % Normal 20.0-45.0 [facility] Comment on above: Performed By: #### L [id number] #### [facility] ([facility]) [address] [place] [address] MCH (RBC) [Entitic mass] 27.2 pg Normal 27.0-33.0 [facility] Comment on above: Performed By: #### L [id number] #### [facility] ([facility]) [address] [place] [address] MCV (RBC) [Entitic vol] 82.7 fL Normal 82.0-98.0 [facility] Comment on above: Performed By: #### L [id number] #### [facility] ([facility]) [address] [place] [address] Monocytes (Bld) [#/Vol] 0.56 10*3/uL Normal 0.10-1.00 [facility] Comment on above: Performed By: #### L [id number] #### [facility] ([facility] [address] [place] [address] Monocytes/100 WBC (Bld) 6.5 % Normal 5.0-12.0 [facility] Comment on above: Performed By: #### L [id number] #### [facility] [address] [place] [address] Neutrophils (Bld) [#/Vol] 5.74 10*3/uL Normal 1.60-7.60 [facility] Comment on above: Performed By: #### L [id number] #### [facility] ([facility]) [address] [place] [address] Neutrophils/100 WBC (Bld) 67.0 % Normal 40.0-72.0 [facility] Comment on above: Performed By: #### L [id number] #### [facility] ([facility]) [address] [place] [address] NRBC (PER 100 WBCS) BY AUTOMATED COUNT 0.0 % Normal 0 [facility] Comment on above: Performed By: #### L [id number] #### [facility] [address] [place] [address] PLATELETS (10*3/UL) IN BLOOD AUTOMATED COUNT 233 10*3/uL Normal 150-400 [facility] Comment on above: Performed By: #### L [id number] #### [facility] ([facility] [address] [place] [address] RBC (Bld) [#/Vol] 4.34 10*6/uL Normal 3.80-5.00 [facility] Comment on above: Performed By: #### L [id number] #### [facility] ([facility]) [address] [place] [address] WBC (Bld) [#/Vol] 8.58 10*3/uL Normal 4.00-10.60 [facility] Comment on above: Performed By: #### L [id number] #### [facility] ([facility]) [address] [place] [address] COMPREHENSIVE METABOLIC PANE Alec 06-29-2024 Albumin [Mass/Vol] 3.8 g/dL Normal 3.5-5.7 [facility] Comment on above: Performed By: #### L [id number] ####[facility] ([facility])[address] [place] [address] ALP [Catalytic activity/Vol] 64 U/L Normal 34-104 [facility] Comment on above: Performed By: #### L [id number] ####[facility] ([facility])[address] [place] [address] ALT [Catalytic activity/Vol] 35 U/L Normal 7-52 [facility] Comment on above: Performed By: #### L [id number] ####[facility] ([facility])[address] [place] [address] Anion gap [Moles/Vol] 12 mmol/L Normal 7-20 [facility] Comment on above: Performed By: #### L [id number] ####[facility] ([facility])[address] [place] [address] AST [Catalytic activity/Vol] 21 U/L Normal 13-39 [facility] Comment on above: Performed By: #### L [id number] ####[facility] ([facility])[address] [place] [address] Bilirubin [Mass/Vol] 0.4 mg/dL Normal 0.3-1.0 [facility] Comment on above: Performed By: #### L [id number] ####[facility] ([facility])[address] [place] [address] Calcium [Mass/Vol] 8.5 mg/dL Low 8.6-10.3 [facility] Comment on above: Performed By: #### L [id number] ####[facility] ([facility] [place] [address] Chloride [Moles/Vol] 112 mmol/L High 98-107 [facility] Comment on above: Performed By: #### L [id number] ####[facility] ([facility])[address] [place] [address] CO2 [Moles/Vol] 22 mmol/L Normal 21-31 [facility] Comment on above: Performed By: #### L [id number] ####[facility] ([facility])[address] [place] [address] Creatinine [Mass/Vol] 0.92 mg/dL Normal 0.60-1.20 [facility] Comment on above: Performed By: #### L [id number] ####[facility] ([facility])[address] [place] [address] GLOMERULAR FILTRATION RATE ML/MIN/1.73 SQ M.PREDICTED 71.3 mL/min/1.73m*2 Normal >60.0 [facility] Comment on above: Result Comment: [facility]???s estimated glomerular filtration rate (eGFR) [...] of individuals. Performed By: #### L [id number] ####[facility] ([facility] [place] [address] Glucose [Mass/Vol] 108 mg/dL High 70-100 [facility] Comment on above: Performed By: #### L [id number] ####[facility] ([facility] [place] [address] Potassium [Moles/Vol] 3.7 mmol/L Normal 3.5-5.1 [facility] Comment on above: Performed By: #### L [id number] ####[facility] ([facility])[address] [place] [address] Protein [Mass/Vol] 6.1 g/dL Normal 6.0-8.3 [facility] Comment on above: Performed By: #### L [id number] ####[facility] ([facility])[address] [place] [address] Sodium [Moles/Vol] 142 mmol/L Normal 136-145 [facility] Comment on above: Performed By: #### L [id number] ####[facility] ([facility])[address] [place] [address] Urea nitrogen [Mass/Vol] 11 mg/dL Normal 7-25 [facility] Comment on above: Performed By: #### L [id number] ####[facility] ([facility])[address] [place] [address] UREA NITROGEN/CREATININE (MASS RATIO) IN SER/PLAS 12.0 Normal [facility] Comment on above: Performed By: #### L [id number] ####[facility] ([facility])[address] [place] [address] MAGNESIUMon 06-29-2024 Magnesium [Mass/Vol] 1.7 mg/dL Low 1.9-2.7 [facility] Comment on above: Performed By: #### L [id number] ####[facility] ([facility])[address] [place] [address] PHOSPHORUSon 06-29-2024 Magnesium [Mass/Vol] 2.9 mg/dL Normal 2.5-5.0 [facility] Comment on above: Performed By: #### L [id number] ####[facility] ([facility])[address] [place] [address] PROTIME-INRon 06-29-2024 INR IN PPP BY COAGULATION ASSAY 0.99 Normal 0.90-1.10 [facility] Comment on above: Result [...] 1995;108:231S-246S. Performed By: #### L [id number] #### [facility] [employer]) [address] [place] [address] PROTHROMBIN TIME (PT) IN PPP BY COAGULATION ASSAY 13.1 Seconds Normal 12.3-14.8 [facility] Comment on above: Performed By: #### L [id number] #### [facility] [employer]) [address] [place] [address] TROPONIN Ion 06-29-2024 Troponin I.cardiac [Mass/Vol] 0.10 ng/mL High 0.00-0.04 [facility] Comment on above: Performed By: #### L [id number] ####[facility] [employer])[address] [place] [address] Office Visiton 06-21-2024 Follow-up visit [id number] Aby Madrigal 1965 F Date Provider Department Center 06/21/2024 GOMEZ KENDALL RIAZ [place] Family History Problem Relation Age of Onset Lung cancer Mother No Known Problems Father Lung cancer Sister Family Status - Relation Status Age at Mother Father Sister Level of Service:74114 [place] OFFICE/OUTPATIENT ESTABLISHED MOD MDM 30 MIN Normal [facility] Office Visiton 05-26-2024 Follow-up visit [id number] Aby Madrigal 1965 F Date Provider Department Center 05/26/2024 [id number] MITCHELL [facility] Family History Problem Relation Age of Onset Lung cancer Mother No Known Problems Father Lung cancer Sister Family Status - Relation Status Age at Mother Father Sister Level of Service:27531 LA OFFICE/OUTPATIENT NEW MODERATE MDM 45 MINUTES Normal [facility] Outside Colonoscopyon 2022 Outside Colonoscopy [id number] 0CD:127 Normal [facility] Reminderson 11-27-2022 Reminders - From: Na Hayes LPN To: N - Clinical; Sent: 11/27/2022 12:46:10 EST Show up: 10/25/2032 07:00:00 EST Subject: colonoscopy recall Due Date/Time: 11/25/2032 07:00:00 EST Reminder/Recall Patient is due for screening colonoscopy 11/25/2032. Normal [facility] Lab Reportson 11-24-2022 Lab Reports [id number] 0CD:127 Normal [facility] Covid-19 PCR (CVDTBH)on 10-24 SARS-CoV-2 (COVID-19) RNA BECK+probe Ql (Unsp spec) Not detected Normal NOT DETECTED [facility] Comment on above: Result Comment: This test is not yet approved or cleared by the [place] FDA. When there are no FDA-approved or cleared tests available, and other criteria are met, FDA can make tests available under an emergency access mechanism called an Emergency Use Authorization (EUA). The EUA for this test is supported by the Certified Court/Medical Interpreter of Health and Human Service's (HHS's) declaration [...] consistent with SARS-CoV-2. Performed By: #### C [facility] #### [facility] [address] [address] [address] Rich Cutler Consent for Procedure/Surger yon 10-07-2022 Consent for Procedure/Surgery [id number] 0CD:127 Normal [facility] Ambulatory Visit Summaryon 1 12-06-2021 Ambulatory Visit [...] for. Allergic conjunctivitis Anticoagulated Kidney stones Normal [facility] VC VENOUS REFLUX NINO LMTon 1 12-02-2021 VC VENOUS REFLUX NINO LMT Patient: ABY MADRIGAL Exam Date: 10/02/2022 : 1965 Gender:F Ordering : DR KENDRA MORAN . Admission #: [id number] Family : Order #: [id number] CLICK HERE TO VIEW EXAM RADIOLOGY REPORT [...] chronic thrombus visualized Compressibility: Normal Flow: Normal Uniform Attendant: Dist/med calf 3.3mm with 0s reflux. Tech Note: Incompetent SFJ and GSV. Patent varicose vein mid/med calf 2.9mm with 0s reflux. Patent varicose vein prox/post calf 3.8mm with 0s reflux. Patent varicose vein dist/med thigh 3.8mm with 2.0s reflux. CONCLUSION: 1. Mild right and hgez-cm-lzajcgnn left great saphenous vein venous insufficiency with dilatation 2. Left saphenous popliteal junction reflux 3. Mild left anterior accessory saphenous vein venous insufficiency without dilatation 4. Small bilateral incompetent varicose veins Dictated by: Adelia Lezama MD on 10/02/2022 at 13:36 Approved by: Adelia Lezama MD on 10/02/2022 at 13:52 Normal [facility] ECHOCARDIO M/2D COMPLETEon 1 11-30-2021 ECHOCARDIO M/2D COMPLETE Patient: ABY MADRIGAL Exam Date: 09/30/2022 : 1965 Gender:F Ordering : DR KENDRA MORAN . Admission #: [id number] Family : Order #: [id number] CLICK HERE TO VIEW EXAM ECHOCARDIOGRAM REPORT [...] M.D. on 09/30/2022 at 18:37 Normal [facility] BNPon 09-24-2022 Natriuretic peptide B (Bld) [Mass/Vol] 501.0 pg/mL Normal <=900.0 [facility] Comment on above: Performed By: #### C VDTB #### [facility] [address] [place] [address] Dr. Rich Cutler CBC AUTO DIFFon 09-24-2022 BASO # 0.1 103/ul Normal 0.0-0.1 [facility] Comment on above: Performed By: #### C VDTB #### [facility] [address] [address] [address] Rich Cutler Basophils/100 WBC (Bld) 0.8 % Normal 0.2-2.0 [facility] Comment on above: Performed By: #### C VDTB #### [facility] [facility] [address] [address] [address] Rich Cutler EO # 0.3 103/ul Normal 0.0-0.7 [facility] Comment on above: Performed By: #### C VDTBH #### [facility] [address] [place] [address] Dr. Rich Cutler Eosinophils/100 WBC (Bld) 3.4 % Normal 0.9-7.0 [facility] Comment on above: Performed By: #### C VDTBH #### [facility] [address] [place] [address] Dr. Rich Cutler Erythrocyte distribution width (RBC) [Ratio] 13.3 % Normal 11.0-15.0 [facility] Comment on above: Performed By: #### C VDTBH #### [facility] [address] [place] [address] Dr. Rich Cutler Hematocrit (Bld) [Volume fraction] 40.5 % Normal 36.0-48.0 [facility] Comment on above: Performed By: #### C VDTBH #### [facility] [address] [place] [address] Dr. Rich Cutler Hemoglobin (Bld) [Mass/Vol] 13.1 g/dL Normal 12.0-16.0 [facility] Comment on above: Performed By: #### C VDTBH #### [facility] [address] [place] [address] Dr. Rich Cutler IG # 0.02 10e3/ul Normal 0.00-0.03 [facility] Comment on above: Performed By: #### C VDTBH #### [facility] [address] [place] [address] Dr. Rich Cutler IG % 0.3 % Normal 0.0-0.5 [facility] Comment on above: Performed By: #### C VDTBH #### [facility] [address] [place] [address] Dr. Rich Cutler LYMPH # 2.7 103/ul Normal 1.2-3.8 [facility] Comment on above: Performed By: #### C VDTBH #### [facility] [address] [place] [address] Dr. Rich Cutler Lymphocytes/100 WBC (Bld) 35.4 % Normal 20.5-60.0 [facility] Comment on above: Performed By: #### C VDTBH #### [facility] [address] [place] [address] Dr. Rich Cutler MANUAL DIFF REQ NO Normal [facility] Comment on above: Performed By: #### C VDTBH #### [facility] [address] [place] [address] Dr. Rich Cutler MCH (RBC) [Entitic mass] 28.2 pg Normal 26.7-34.0 [facility] Comment on above: Performed By: #### C VDTBH #### [facility] [address] [place] [address] Dr. Rich Cutler MCHC (RBC) [Mass/Vol] 32.3 g/dL Normal 29.9-35.2 [facility] Comment on above: Performed By: #### C VDTBH #### [facility] [address] [place] [address] Dr. Rich Cutler MCV (RBC) [Entitic vol] 87.3 fL Normal 81.0-99.0 [facility] Comment on above: Performed By: #### C VDTBH #### [facility] [address] [place] [address] Dr. Rich Cutler MONO # 0.5 103/ul Normal 0.3-0.8 [facility] Comment on above: Performed By: #### C VDTBH #### [facility] [address] [place] [address] Dr. Rich Cutler Monocytes/100 WBC (Bld) 6.5 % Normal 1.7-12.0 [facility] Comment on above: Performed By: #### C VDTBH #### [facility] [address] [place] [address] Dr. Rich Cutler NEUT # 4.1 103/ul Normal 1.4-6.5 [facility] Comment on above: Performed By: #### C VDTBH #### [facility] [address] [place] [address] Dr. Rich Cutler Neutrophils/100 WBC (Bld) 53.6 % Normal 43.0-75.0 [facility] Comment on above: Performed By: #### C ALEXANDERTBH #### [facility] [address] [place] [address] Dr. Rich Cutler Platelet mean volume (Bld) [Entitic vol] 10.3 fL Normal 9.5-13.5 [facility] Comment on above: Performed By: #### C VDTBH #### [facility] [address] [place] [address] Dr. Rich Cutler PLT 283 103/ul Normal 150-450 [facility] Comment on above: Performed By: #### C VDTBH #### [facility] [address] [place] [address] Dr. Rich Cutler RBC 4.64 106/ul Normal 4.20-5.40 [facility] Comment on above: Performed By: #### C ALEXANDERTBH #### [facility] [address] [place] [address] Dr. Rich Cutler WBC 7.6 103/ul Normal 4.0-11.0 [facility] Comment on above: Performed By: #### C VDTBH #### [facility] [address] [place] [address] Dr. Rich Cutler INSULINon 09-24-2022 Insulin 15.1 uIU/mL Normal 2.6-24.9 [facility] Comment on above: Performed By: #### C VDTBH #### [facility] [address] [place] [address] Dr. Rich Cutler PROF 14(COMP METB)on 022 Albumin [Mass/Vol] 3.5 g/dL Normal 3.4-5.0 [facility] Comment on above: Performed By: #### C VDTBH #### [facility] [address] [place] [address] Dr. Rich Cutler Albumin/Globulin [Mass ratio] 1.0 {ratio} Normal [facility] Comment on above: Performed By: #### C VDTBH #### [facility] [address] [address] [address] Rich Cutler ALP [Catalytic activity/Vol] 91 U/L Normal 46-116 [facility] Comment on above: Performed By: #### C VDTBH #### [facility] [address] [place] [address] Dr. Rich Cutler ALT [Catalytic activity/Vol] 47 U/L Normal 14-59 [facility] Comment on above: Performed By: #### C VDTBH #### [facility] [address] [address] [address] Rich Cutler Anion gap [Moles/Vol] 11.7 mmol/L Normal [facility] Comment on above: Performed By: #### C VDTBH #### [facility] [address] [place] [address] Dr. Rich Cutler AST [Catalytic activity/Vol] 24 U/L Normal 15-37 [facility] Comment on above: Performed By: #### C VDTBH #### [facility] [address] [place] [address] Dr. Rich Cutler Bilirubin [Mass/Vol] 0.2 mg/dL Normal 0.2-1.0 [facility] Comment on above: Performed By: #### C VDTBH #### [facility] [address] [place] [address] Dr. Rich Cutler Calcium [Mass/Vol] 8.9 mg/dL Normal 8.5-10.1 [facility] Comment on above: Performed By: #### C VDTBH #### [facility] [address] [place] [address] Dr. Rich Cutler Chloride [Moles/Vol] 105 mmol/L Normal 98-107 [facility] Comment on above: Performed By: #### C VDTBH #### [facility] [address] [place] [address] Dr. Rich Cutler CO2 [Moles/Vol] 28.1 mmol/L Normal 21.0-32.0 [facility] Comment on above: Performed By: #### C VDTBH #### [facility] [address] [address] [address] Rich Cutler Creatinine [Mass/Vol] 1.13 mg/dL Critically high 0.55-1.02 [facility] Comment on above: Performed By: #### C VDTBH #### [facility] [address] [address] [address] Rich Cutler EGFR-AF [place] 60 mL/min/1.73m2 Normal >=60 [facility] Comment on above: Performed By: #### C VDTBH #### [facility] [address] [address] [address] Rich Cutler EGFR-NON AF [place] 49 mL/min/1.73m2 Critically low >=60 [facility] Comment on above: Performed By: #### C VDTBH #### [facility] [address] [address] [address] Rich Cutler Globulin (S) [Mass/Vol] 3.5 g/dL Normal [facility] Comment on above: Performed By: #### C VDTBH #### [facility] [address] [address] [address] Rich Cutler Glucose [Mass/Vol] 119 mg/dL Critically high 74-106 [facility] Comment on above: Performed By: #### C VDTBH #### [facility] [address] [address] [address] Rich Cutler Potassium [Moles/Vol] 3.8 mmol/L Normal 3.5-5.1 [facility] Comment on above: Performed By: #### C VDTBH #### [facility] [address] [place] [address] Dr. Rich Cutler Protein [Mass/Vol] 7.0 g/dL Normal 6.4-8.2 [facility] Comment on above: Performed By: #### C VDTBH #### [facility] [address] [place] [address] Dr. Rich Cutler Sodium [Moles/Vol] 141 mmol/L Normal 136-145 [facility] Comment on above: Performed By: #### C VDTBH #### [facility] [address] [address] [address] Rich Cutler Urea nitrogen [Mass/Vol] 16.0 mg/dL Normal 7.0-18.0 [facility] Comment on above: Performed By: #### C VDTBH #### [facility] [address] [address] [address] Rich Cutler Urea nitrogen/Creatinine [Mass ratio] 14.2 mg/mg Normal [facility] Comment on above: Performed By: #### C VDTBH #### [facility] [address] [address] [address] Rich Cutler TROPONIN, HIGH SENSITIVITYon 09-24-2022 HSTROP 10.6 pg/mL Normal 4.0-51.3 [facility] Comment on above: Result Comment: CUT- OFF POINTS HAVE BEEN ESTABLISHED BASED ON THE FOURTH UNIVERSAL DEFINITIONS OF MYOCARDIAL INFARCTION. THE UPPER REFERENCE LIMIT (URL) OF TROPONIN, DEFINED THE 99TH PERCENTILE OF cTnI DISTRIBUTION IN A REFERENCE POPULATION, HAS BEEN CONFIRMED THE DECISION THRESHOLD FOR [place] DIAGNOSIS. Performed By: #### C VDTBH #### [facility] [address] [place] [address] Dr. Rich Cutler XR CHEST 1 Von [...] [facility] HUMPHRIES Date: 2022-09-24 04:08 Normal [facility] CBC AUTO DIFFon 09-23-2022 BASO # 0.1 103/ul Normal 0.0-0.1 [facility] Comment on above: Performed By: #### C BC #### [facility] [address] [place] [address] Dr. Rich Cutler Basophils/100 WBC (Bld) 0.8 % Normal 0.2-2.0 [facility] Comment on above: Performed By: #### C BC #### [facility] [address] [place] [address] Dr. Rich Cutler EO # 0.2 103/ul Normal 0.0-0.7 [facility] Comment on above: Performed By: #### C BC #### [facility] [address] [place] [address] Dr. Rich Cutler Eosinophils/100 WBC (Bld) 3.5 % Normal 0.9-7.0 [facility] Comment on above: Performed By: #### C BC #### [facility] [address] [place] [address] Dr. Rich Cutler Erythrocyte distribution width (RBC) [Ratio] 13.4 % Normal 11.0-15.0 [facility] Comment on above: Performed By: #### C BC #### [facility] [address] [place] [address] Dr. Rich Cutler Hematocrit (Bld) [Volume fraction] 42.3 % Normal 36.0-48.0 [facility] Comment on above: Performed By: #### C BC #### [facility] [address] [place] [address] Dr. Rich Cutler Hemoglobin (Bld) [Mass/Vol] 13.4 g/dL Normal 12.0-16.0 [facility] Comment on above: Performed By: #### C BC #### [facility] [address] [place] [address] Dr. Rich Cutler IG # 0.03 10e3/ul Normal 0.00-0.03 [facility] Comment on above: Performed By: #### C BC #### [facility] [address] [place] [address] Dr. Rich Cutler IG % 0.5 % Normal 0.0-0.5 [facility] Comment on above: Performed By: #### C BC #### [facility] [address] [place] [address] Dr. Rich Cutler LYMPH # 2.9 103/ul Normal 1.2-3.8 [facility] Comment on above: Performed By: #### C BC #### [facility] [address] [place] [address] Dr. iRch Cutler Lymphocytes/100 WBC (Bld) 44.0 % Normal 20.5-60.0 [facility] Comment on above: Performed By: #### C BC #### [facility] [address] [place] [address] Dr. Rich Cutler MANUAL DIFF REQ NO Normal [facility] Comment on above: Performed By: #### C BC #### [facility] [address] [place] [address] Dr. Rich Cutler MCH (RBC) [Entitic mass] 28.4 pg Normal 26.7-34.0 [facility] Comment on above: Performed By: #### C BC #### [facility] [address] [place] [address] Dr. Rich Cutler MCHC (RBC) [Mass/Vol] 31.7 g/dL Normal 29.9-35.2 [facility] Comment on above: Performed By: #### C BC #### [facility] [address] [place] [address] Dr. Rich Cutler MCV (RBC) [Entitic vol] 89.6 fL Normal 81.0-99.0 [facility] Comment on above: Performed By: #### C BC #### [facility] [address] [place] [address] Dr. Rich Cutler MONO # 0.4 103/ul Normal 0.3-0.8 [facility] Comment on above: Performed By: #### C BC #### [facility] [address] [place] [address] Dr. Rich Cutler Monocytes/100 WBC (Bld) 6.6 % Normal 1.7-12.0 [facility] Comment on above: Performed By: #### C BC #### [facility] [address] [place] [address] Dr. Rich Cutler NEUT # 2.9 103/ul Normal 1.4-6.5 [facility] Comment on above: Performed By: #### C BC #### [facility] [address] [address] [address] Rich Cutler Neutrophils/100 WBC (Bld) 44.6 % Normal 43.0-75.0 [facility] Comment on above: Performed By: #### C BC #### [facility] [address] [place] [address] Dr. Rich Cutler Platelet mean volume (Bld) [Entitic vol] 11.0 fL Normal 9.5-13.5 [facility] Comment on above: Performed By: #### C BC #### [facility] [address] [place] [address] Dr. Rich Cutler PLT 272 103/ul Normal 150-450 [facility] Comment on above: Performed By: #### C BC #### [facility] [address] [place] [address] Dr. Rich Cutler RBC 4.72 106/ul Normal 4.20-5.40 [facility] Comment on above: Performed By: #### C BC #### [facility] [address] [place] [address] Dr. Rich Cutler WBC 6.5 103/ul Normal 4.0-11.0 [facility] Comment on above: Performed By: #### C BC #### [facility] [address] [place] [address] Dr. Rich Cutler FREE THYROXINE INDEX T7on FTI 2.16 Normal 1.30-4.50 [facility] Comment on above: Performed By: #### L IPID, TSH, T7, CMP #### [facility] [address] [place] [address] Dr. Rich Cutler T3U 30.0 % Normal 30.0-39.0 [facility] Comment on above: Performed By: #### L IPID, TSH, T7, CMP #### [facility] [address] [place] [address] Dr. Rich Cutler T4 [Mass/Vol] 7.20 ug/dL Normal 4.80-13.90 [facility] Comment on above: Performed By: #### L IPID, TSH, T7, CMP #### [facility] [address] [address] [address] Rich Cutler GLYCOHEMOGLOBIN A1Con 2021 ADA RECOMMENDATION SEE BELOW Normal [facility] Comment on above: Result Comment: ADA RECOMMENDED LIMIT 4.0 - 6.0 ADA THERAPEUTIC TARGET < 7.0 ACTION SUGGESTED > 7.0 Performed By: #### A 1C #### [facility] [address] [address] [address] Rich Cutler Glucose [Mass/Vol] 128 mg/dL Normal [facility] Comment on above: Performed By: #### A 1C #### [facility] [address] [address] [address] Rich Cutler HbA1c (Bld) [Mass fraction] 6.1 % Normal 4.5-6.2 [facility] Comment on above: Performed By: #### A 1C #### [facility] [address] [address] [address] Rich Cutler IRONon 09-23-2022 Iron [Mass/Vol] 64.0 ug/dL Normal 50.0-170.0 [facility] Comment on above: Performed By: #### C VDTB #### [facility] [address] [place] [address] Dr. Rich Cutler LIPID PROFILEon 09-23-2022 CHOL-HDL RATIO NORM SEE BELOW Normal [facility] Comment on above: Result Comment: 3.3 - 4.4 LOW RISK 4.4 - 7.1 AVERAGE RISK 7.1 - 11.0 MODERATE RISK >11.0 HIGH RISK Performed By: #### L IPID, TSH, T7, CMP #### [facility] [address] [address] [address] Rich Cutler Cholesterol [Mass/Vol] 237 mg/dL Critically high <=200 [facility] Comment on above: Performed By: #### L IPID, TSH, T7, CMP #### [facility] [address] [address] [address] Rich Cutler Cholesterol in HDL [Mass/Vol] 44 mg/dL Normal 40-60 [facility] Comment on above: Performed By: #### L IPID, TSH, T7, CMP #### [facility] [address] [place] [address] Dr. Rich Cutler Cholesterol in LDL [Mass/Vol] 172.2 mg/dL Normal [facility] Comment on above: Performed By: #### L IPID, TSH, T7, CMP #### [facility] [address] [address] [address] Rich Cutler Cholesterol.total/C holesterol in HDL [Mass ratio] 5.4 {ratio} Normal [facility] Comment on above: Performed By: #### L IPID, TSH, T7, CMP #### [facility] [address] [place] [address] Dr. Rich Cutler HDL NORMAL > or = 60 mg/dl - LO W CARDIOVASCULAR RISK <40 mg/dl - HIGH CARDIOVASCULAR RISK Normal [facility] Comment on above: Performed By: #### L IPID, TSH, T7, CMP #### [facility] [address] [place] [address] Dr. Rich Cutler LDL CALC NORMAL SEE BELOW Normal [facility] Comment on above: Result Comment: <100 mg/dl OPTIMAL 100 - 129 mg/dl NEAR OR ABOVE OPTIMAL 130 - 159 mg/dl BORDERLINE HIGH 160 - 189 mg/dl HIGH >190 mg/dl VERY HIGH Performed By: #### L IPID, TSH, T7, CMP #### [facility] [address] [place] [address] Dr. Rich Cutler Triglyceride [Mass/Vol] 104 mg/dL Normal <=150 [facility] Comment on above: Performed By: #### L IPID, TSH, T7, CMP #### [facility] [address] [place] [address] Dr. Rich Cutler VLDL CALC 20.8 mg/dL Normal [facility] Comment on above: Performed By: #### L IPID, TSH, T7, CMP #### [facility] [address] [place] [address] Dr. Rich Cutler PROF 14(COMP METB)on 022 Albumin [Mass/Vol] 3.5 g/dL Normal 3.4-5.0 [facility] Comment on above: Performed By: #### L IPID, TSH, T7, CMP #### [facility] [address] [place] [address] Dr. Rich Cutler Albumin/Globulin [Mass ratio] 0.9 {ratio} Normal [facility] Comment on above: Performed By: #### L IPID, TSH, T7, CMP #### [facility] [address] [place] [address] Dr. Rich Cutler ALP [Catalytic activity/Vol] 93 U/L Normal 46-116 [facility] Comment on above: Performed By: #### L IPID, TSH, T7, CMP #### [facility] [address] [place] [address] Dr. Rich Cutler ALT [Catalytic activity/Vol] 44 U/L Normal 14-59 [facility] Comment on above: Performed By: #### L IPID, TSH, T7, CMP #### [facility] [address] [place] [address] Dr. Rich Cutlre Anion gap [Moles/Vol] 8.5 mmol/L Normal [facility] Comment on above: Performed By: #### L IPID, TSH, T7, CMP #### [facility] [address] [place] [address] Dr. Rich Cutler AST [Catalytic activity/Vol] 26 U/L Normal 15-37 [facility] Comment on above: Performed By: #### L IPID, TSH, T7, CMP #### [facility] [address] [place] [address] Dr. Rich Cutler Bilirubin [Mass/Vol] 0.3 mg/dL Normal 0.2-1.0 [facility] Comment on above: Performed By: #### L IPID, TSH, T7, CMP #### [facility] [address] [place] [address] Dr. Rich Cutler Calcium [Mass/Vol] 9.0 mg/dL Normal 8.5-10.1 [facility] Comment on above: Performed By: #### L IPID, TSH, T7, CMP #### [facility] [address] [address] [address] Rich Cutler Chloride [Moles/Vol] 106 mmol/L Normal 98-107 [facility] Comment on above: Performed By: #### L IPID, TSH, T7, CMP #### [facility] [address] [address] [address] Rich Cutler CO2 [Moles/Vol] 31.0 mmol/L Normal 21.0-32.0 [facility] Comment on above: Performed By: #### L IPID, TSH, T7, CMP #### [facility] [address] [place] [address] Dr. Rich Cutler Creatinine [Mass/Vol] 1.11 mg/dL Critically high 0.55-1.02 [facility] Comment on above: Performed By: #### L IPID, TSH, T7, CMP #### [facility] [address] [place] [address] Dr. Rich Cutler EGFR-AF [place] >60 Normal >=60 [facility] Comment on above: Performed By: #### L IPID, TSH, T7, CMP #### [facility] [address] [place] [address] Dr. Rich Cutler EGFR-NON AF [place] 50 mL/min/1.73m2 Critically low >=60 [facility] Comment on above: Performed By: #### L IPID, TSH, T7, CMP #### [facility] [address] [place] [address] Dr. Rich Cutler Globulin (S) [Mass/Vol] 3.7 g/dL Normal [facility] Comment on above: Performed By: #### L IPID, TSH, T7, CMP #### [facility] [address] [place] [address] Dr. Rich Cutler Glucose [Mass/Vol] 121 mg/dL Critically high 74-106 [facility] Comment on above: Performed By: #### L IPID, TSH, T7, CMP #### [facility] [address] [place] [address] Dr. Rich Cutler Potassium [Moles/Vol] 4.5 mmol/L Normal 3.5-5.1 [facility] Comment on above: Performed By: #### L IPID, TSH, T7, CMP #### [facility] [address] [address] [address] Rich Cutler Protein [Mass/Vol] 7.2 g/dL Normal 6.4-8.2 [facility] Comment on above: Performed By: #### L IPID, TSH, T7, CMP #### [facility] [address] [address] [address] Rich Cutler Sodium [Moles/Vol] 141 mmol/L Normal 136-145 [facility] Comment on above: Performed By: #### L IPID, TSH, T7, CMP #### [facility] [address] [place] [address] Dr. Rich Cutler Urea nitrogen [Mass/Vol] 16.0 mg/dL Normal 7.0-18.0 [facility] Comment on above: Performed By: #### L IPID, TSH, T7, CMP #### [facility] [address] [address] [address] Rich Cutler Urea nitrogen/Creatinine [Mass ratio] 14.4 mg/mg Normal [facility] Comment on above: Performed By: #### L IPID, TSH, T7, CMP #### [facility] [address] [address] [address] Rich Cutler TSHon 09-23-2022 TSH 3.915 uIU/mL Critically high 0.358-3.740 [facility] Comment on above: Performed By: #### L IPID, TSH, T7, CMP #### [facility] [address] [address] [address] Rich Cutler Physician Referralon 022 Physician Referral [phone] [id number] Normal [facility] Lipid Panelon 10-07-2021 Cholesterol [Mass/Vol] 205 mg/dL High 140-200 [facility] Comment on above: Result Comment: Chol less than 200 mg/dl low risk Chol 201-239 mg/dl borderline risk Chol 240 mg/dl and greater high risk Performed By: #### L IPID, [id number], TSH3 [id number] #### [facility] [address] Cholesterol in HDL [Mass/Vol] 25 mg/dL Low 35-85 [facility] Comment on above: Result Comment: HDL CHOL ATP-III CLASSIFICATION Cardiovascular Risk HDL > or equal to 60 mg/dL LOW HDL < 40 mg/dL HIGH Performed By: #### L IPID, [id number], TSH3 wRFLX #### [facility] [address] [place] [address] [place] Cholesterol.total/C holesterol in HDL [Mass ratio] 8.2 {ratio} Normal <5.0 [facility] Comment on above: Performed By: #### L IPID, [id number], TSH3 wRFLX #### [address] LDL Cholesterol,Calcula coby 160 mg/dL High 0-100 [facility] Comment on above: Result Comment: LDL ATP III CLASSIFICATION LDL less than 100 mg/dL Optimal LDL 100-129 mg/dL Near or above optimal LDL 130-159 mg/dL Borderline high LDL 160-189 mg/dL High LDL greater than 189 mg/dL Very high Performed By: #### L IPID, [id number], TSH3 wRFLX #### [facility] [address] [place] [address] [place] Triglyceride w/Reflex 100 mg/dL Normal 35-149 [facility] Comment on above: Result Comment: TRIG ATP III CLASSIFICATION TRIG less than 150 mg/dL Normal TRIG 150-199 mg/dL Borderline high TRIG 200-500 mg/dL High TRIG greater than 500 mg/dL Very high Standard traceable to the Center for Disease Conrtrol and Prevention (CDC) test method. Performed By: #### L IPID, [id number], TSH3 wRFLX #### [facility] [address] [place] [address] VLDL CHOLESTEROL 20 mg/dL Normal [facility] Comment on above: Performed By: #### L IPID, [id number], TSH3 wRFLX #### [facility] [address] [place] [address] Thyroid Stim Hormone w/Rflxo n 10-07-2021 Thyroid Stim Hormone w/Rflx 3.27 u[iU]/mL Normal 0.45-5.33 [facility] Comment on above: Performed By: #### L IPID, [id number], TSH3 wRFLX #### [facility] [address] [place], [place] [id number] [facility] Vitamin D 25 Hydroxy Totalon 10-07-2021 Vitamin D 25 Hydroxy Total 26.5 ng/mL Low 30-100 [facility] Comment on above: Result Comment: JACKELINE MIN D STATUS 25(OH)VITAMIN D RANGE (ng/mL) Deficient <20 Insufficient 20 to <30 Sufficient 30 to 100 Reference: Lanny MF,Gino NC, Dyan VALENZUELA, et al. Evaluation,treatment, and prevention of vitamin D deficiency; an Endocrine Society clinical practice guideline. JCEM. 2010; 96(7):1911-30. PERFORMED BY: [place] [address] PATHOLOGIST SKI MAKER [employer] SILVESTRE SCHULER M.D. Performed By: #### L IPID, [id number], TSH3 wRFLX #### [place] [id number] [facility] Vital Signs Date Time Vital Sign Value Performing Clinician Deidre gagnon 03-03-2025 11:02040 Body height 160.02 cm [facility] 03-03-2025 11:02-0400 Body mass index (BMI) [Ratio] 35.6 kg/m2 [facility] 03-03-2025 11:02-0400 Body temperature 97.8 [degF] [facility] 03-03-2025 11:020400 Body weight 91.34 kg [facility] 03-03-2025 11:02-0400 Diastolic blood pressure 69 mm[Hg] [facility] 03-03-2025 11:02-0400 Heart rate 82 /min [facility] 03-03-2025 11:02-0400 Respiratory rate 18 /min [facility] 03-03-2025 11:02-0400 SaO2% (BldA) [Mass fraction] 96 % [facility] 03-03-2025 11:02-0400 Systolic blood pressure 108 mm[Hg] [facility] 03-02-2025 09:18-0400 Body height 162.6 cm Farzana Damon MANAGER LV[employer]ESS INTERNET INSTALLER Work Phone: [facility] 03-02-2025 09:18-0400 Body mass index (BMI) [Ratio] 34.81 kg/m2 Farzana Damon MANAGER [employer] INTER[employer] INSTALLER Work Phone: [facility] 03-02-2025 09:18-0400 Body weight 91.99 kg Farzana Damon MANAGER [employer] INTER[employer] INSTALLER Work Phone: [facility] 03-02-2025 09:18-0400 Diastolic blood pressure 68 mm[Hg] Farzana Damon MANAGER [employer] INTERNET INSTALLER Work Phone: [facility] [employer] [facility] 03-02-2025 09:18-0400 Systolic blood pressure 118 mm[Hg] Farzana Damon MANAGER [employer] INTER[employer] INSTALLER Work Phone: [facility] 10-06-2022 15:36-0500 Blood Pressure Location Umm LANDON [facility] [place] 10-06-2022 15:36-0500 Diastolic blood pressure 86 mm[Hg] [facility] LAND[facility] [place] 10-06-2022 15:36-0500 Heart rate 72 /min Umm LANDON [facility] [place] 10-06-2022 15:36-0500 Respiratory rate 16 /min Umm LANDON [facility] [place] 10-06-2022 15:36-0500 Systolic blood pressure 126 mm[Hg] [facility] LAND[facility] [place] Encounters Encounter Date Encounter Type Care Provider Facility Start: 03-03-2025 End: 03-03-2025 ambulatory [facility] Work Phone: Start: 03-03-2025 End: 03-03-2025 Patient encounter procedure Pending Sale To [facility] Work Phone: Start: 03-02-2025 End: 03-02-2025 Office outpatient visit 15 minutes Farzana Damon MANAGER [employer] INST[employer]ER Work Phone: [facility] Comment on above: Genitourinary syndro me of menopause (Primary Dx); PCB (post coital bleeding) Start: 02-26-2025 End: 02-26-2025 ambulatory [facility] Start: 02-07-2025 End: 02-07-2025 ambulatory [facility] Start: 01-09-2025 End: 01-09-2025 ambulatory [facility] Start: 01-02-2025 End: 01-02-2025 [facility] Start: 10-26-2024 End: 10-26-2024 ambulatory [facility] Start: 10-03-2024 End: 10-03-2024 ambulatory [facility] Start: 09-04-2024 End: 09-04-2024 ambulatory [facility] Start: 08-29-2024 End: 08-29-2024 ambulatory [facility] Start: 08-04-2024 End: 08-04-2024 ambulatory [facility] Start: 07-20-2024 ambulatory [facility] Start: 07-18-2024 ambulatory [facility] Start: 07-18-2024 End: 07-18-2024 Emergency department patient visit HERMINIA JULIAN [facility] Start: 07-18-2024 End: 07-18-2024 ambulatory FENGSAINIGUALBERTOMalcolm [facility] Start: 07-11-2024 Evaluation and manag ement of inpatient [facility] Start: 07-11-2024 Emergency department patient visit FEDERICA MONICA [facility] Start: 07-11-2024 End: 07-12-2024 Evaluation and management of inpatient JOSE HUGHESALBERTO [facility] Start: 07-10-2024 End: 07-10-2024 ambulatory [facility] Start: 06-30-2024 Evaluation and manag ement of inpatient [facility] Start: 06-30-2024 Evaluation and manag ement of inpatient [facility] Start: 06-29-2024 End: 07-01-2024 Evaluation and management of inpatient KENDRA MORAN [facility] Start: 06-21-2024 End: 06-21-2024 [facility] Start: 05-26-2024 End: 05-26-2024 ambulatory [facility] Start: 11-26-2022 Encounter for preprocedural laboratory examination DR UMM LANDON . [facility] Start: 11-25-2022 End: 11-26-2022 ambulatory Umm LANDON Facility:CD:[id number] Start: 11-20-2022 End: 11-21-[address] UMM LANDON . Facility: Start: 11-20-2022 End: 11-21-2022 Encounter for preprocedural laboratory examination DR UMM LANDON . Facility: Start: 10-06-2022 End: 10-07-2022 ambulatory Umm LANDON Facility:[facility] Start: 10-06-2022 End: 10-06-2022 Patient encounter procedure Umm LANDON [facility] [place] Start: 10-02-2022 End: 10-03-[address] KENDRA MORAN . Facility:[facility] Start: 09-30-2022 End: 10-01-[address] KENDRA MORAN . Facility:[facility] Start: 09-28-2022 Encounter for genera l adult medical examination without abnormal findings DR KENDRA MORAN . [facility] Start: 09-24-2022 End: 09-24-[address] [...] 08-29-2019 Cystoscopic removal of ureteric stent Umm JACQUESL Bilateral tubal ligation Ad hael NILL Catheterization of l eft heart Umm NILL Cholecystectomy Umm NILL Cystoscopic insertio n of ureteric stent Umm NILL Dilation and curetta ge of uterus Umm NILL Vaginal hysterectomy Umm NILL Plan of Treatment Date Care Activity Detail Author Start: 03-02-2026 Adult BMI Screening Adult BMI Screening [facility] Start: 03-02-2026 Tobacco Screening Tobacco Screening [facility] Start: 07-23-2025 Influenza vaccination Influenza Vaccine [facility] Start: 06-01-2025 End: 06-01-2025 Patient encounter procedure 06/01/2025 1:00 PM EDT Office Visit [facility] [address] [place] [id number] Afsaneh Jacome, MANAGER [employer] INTER[employer] INSTALLER [address] [place], [place] [id number] [facility] Start: 07-23-2024 COVID-19 Vaccine ( season) COVID-19 Vaccine ( season) [facility] Start: 2014 Administration of varicella zoster vaccine Zoster (Shingles) Vaccine (1 of 2) [facility] Start: 1983 DTaP,Tdap and Td Vaccines (1 - Tdap) DTaP,Tdap and Td Vaccines (1 - Tdap) [facility] Start: 1982 Adult BMI Follow Up Plan Adult BMI Follow Up Plan [facility] Start: 1976 Depression Screening Depression Screening [facility] Immunizations Immunization Date Immunization Notes Care Provider Fa cili 11-07-2021 influenza virus vaccine, unspecified formulation Farzana Damon MANAGER [employer] IN[employer]ER Work Phone: [facility] 04-14-2021 SARS-CoV-2 (COVID-19 ) mRNA BNT-162b2 vax Umm LANDON [facility] [place] 03-11-2021 SARS-CoV-2 (COVID-19 ) mRNA BNT-162b2 vax Umm LANDON [facility] [place] NEGATED: Highlighted row has not occurred!10-07-2021 influenza, injectable, quadrivalent, preservative free [facility] Payers Date Payer Category Payer Medicaid [facility] [id number] 2022 Medicaid [id number] 1965 Unknown [id number] 1964 Unknown [id number] 1964 Unknown [id number] 1964 Unknown [id number] 1964 Unknown [id number] 1964 Unknown [id number] 1964 Unknown [id number] 1964 Unknown [id number] 1964 Unknown [id number] 1964 Unknown [id number] 1959 Self-pay [id number] 1959 Unknown [id number] Unknown Sofi BC/BS [id number] Social History Date Type Detail Facility Start: 10-06-2022 End: 03-02-2025 Tobacco smoking status Ex-smoker (finding) [facility] Tobacco smoking status Never [facility] [place] Start: 01-02-2021 End: 03-02-2025 Sex Assigned At Female Ang Ivan Oliver [facility] Start: 10-07-2021 History of tobacco use Current smoke r [facility] History of tobacco use Cigarette Smoker P [facility] Start: 01-02-2021 End: 03-02-2025 Cigarettes smoked current (pack per day) - Reported 1 [facility] Start: 03-02-2025 Tobacco use and exposure Smokeless tobacco non-user [facility] Start: 03-02-2025 Alcoholic beverage intake Ex-drinker (finding) [facility] Start: 1965 Sex assigned at Not on file P [facility] Start: 06-27-2015 End: 03-03-2025 Sex Female (finding) [facility] Start: 1965 Sex Assigned At Female [facility] Functional Status Date Assessment Result Facility 10-06-2022 Functional Status N/A [facility] Clinical Notes 10-11-2022 to 03-02-2025 Farzana Damon, MANAGER [employer] INTER[employer] INSTALLER - 03/02/2025 8:45 AM EDTPatient Instructions Note Date & Type Note Facility 03-02-2025 History of Present illness Narrative Aby Madrigal is a 59 y.o. female. She presents for bleeding after sexual activity. Reports bleeding was from finger penetration 3 days ago. Reports the blood was on her partner's hand and describes this as dark red, not bright red blood. She has a hx of tubal and hysterectomy in 1999 due to pain. Her 15 years ago and she has not been sexually active until recently. She did not have any pain or discomfort, no spotting after the sexual activity. Denies abnormal vaginal discharge, itching, odor, or irritation. Declines STI screening. When asked if she has a cervix, pt reports she was told previously that she had part of her cervix but it was dissolving . No pap history on file. Current contraception:hysterectomy No LMP recorded. Patient has had a hysterectomy. OB History 3 Para 2 Term AB 1 Living 2 SAB 1 IAB Ectopic Multiple Live Births 2 MEDICAL HX Past Medical History: Diagnosis Date Anxiety GERD (gastroesophageal reflux disease) Heart attack ([facility]) 06/29/2024 Hypertension MEDS Current Outpatient Medications Medication Sig Dispense Refill aspirin 81 mg Take 1 tablet (81 mg total) by mouth in the morning. carvediloL (COREG) 25 mg tablet Take 1 tablet (25 mg total) by mouth in the morning and 1 tablet (25 mg total) at noon and 1 tablet (25 mg total) in the evening. Take with meals. clopidogreL (PLAVIX) 75 mg tablet Take 1 tablet (75 mg total) by mouth in the morning. hydrALAZINE (APRESOLINE) 50 mg tablet Take 1 tablet (50 mg total) by mouth daily as needed (as neded). INVOKANA 100 mg tablet Take 1 tablet (100 mg total) by mouth in the morning. isosorbide mononitrate (IMDUR) 60 mg 24 hr tablet Take 1 tablet (60 mg total) by mouth in the morning and at bedtime. LORazepam (ATIVAN) 1 mg tablet Take 1 tablet (1 mg total) by mouth 3 (three) times a day as needed for anxiety. metFORMIN (GLUCOPHAGE) 500 mg tablet Take 1 tablet (500 mg total) by mouth in the morning and 1 tablet (500 mg total) in the evening. Take with meals. pantoprazole (PROTONIX) 40 mg EC tablet Take 1 tablet (40 mg total) by mouth every morning before breakfast. rosuvastatin (CRESTOR) 40 mg tablet Take 1 tablet (40 mg total) by mouth in the morning. amitriptyline (ELAVIL) 100 mg tablet Take 100 mg by mouth nightly. (Patient not taking: Reported on 03/02/2025) citalopram (CeleXA) 20 mg tablet Take 20 mg by mouth daily. (Patient not taking: Reported on 03/02/2025) estradioL (ESTRACE) 0.01 % (0.1 mg/gram) vaginal cream Insert 0.5 g into the vagina nightly for 14 days, THEN 0.5 g 2 (two) times a week for 360 days. 0.5 grams vaginally each night for two weeks and then twice weekly (ex. Wednesday and ). In additional to vaginal use, apply pea size amount to fingertip and rub in vulva and vaginal introitus.. 42.5 g 1 hydrOXYzine (ATARAX) 25 mg tablet Take 1 tablet (25 mg total) by mouth 3 (three) times a day as needed. (Patient not taking: Reported on 03/02/2025) irbesartan (AVAPRO) 300 mg tablet Take 300 mg by mouth nightly. (Patient not taking: Reported on 03/02/2025) LORazepam (ATIVAN) 0.5 mg tablet Take 0.5 mg by mouth as needed. (Patient not taking: Reported on 03/02/2025) QUEtiapine (SEROquel) 100 mg tablet Take 1 tablet (100 mg total) by mouth nightly. No current facility-administered medications for this visit. ALLERGIES Allergies Allergen Reactions Alprazolam Abnormal Behavior sadness Amlodipine Other (See Comments) Eye twitch Lisinopril Cough Review of Systems 10 or more systems reviewed and all negative except stated in HPI Physical Exam Vitals and nursing note reviewed. Constitutional: General: She is not in acute distress. Appearance: Normal appearance. She is not ill-appearing. HENT: Head: Normocephalic and atraumatic. Nose: No rhinorrhea. Eyes: Extraocular Movements: Extraocular movements intact. Pulmonary: Effort: Pulmonary effort is normal. No respiratory distress. Genitourinary: General: Normal vulva. Exam position: Lithotomy position. Labia: Right: No rash or lesion. Left: No rash or lesion. Vagina: Vaginal discharge (small amt, white.) present. No bleeding. Uterus: Absent. Comments: Cervix not identified Musculoskeletal: General: Normal range of motion. Cervical back: Normal range of motion. Skin: General: Skin is warm and dry. Neurological: General: No focal deficit present. Mental Status: She is alert. Psychiatric: Mood and Affect: Mood normal. Behavior: Behavior normal. Thought Content: Thought content normal. Judgment: Judgment normal. BP 118/68 Ht 162.6 cm (5' 4 ) Wt 92 kg (202 lb 12.8 oz) BMI 34.81 kg/m Assessment/Plan 1. Genitourinary syndrome of menopause (Primary) - estradioL (ESTRACE) 0.01 % (0.1 mg/gram) vaginal cream; Insert 0.5 g into the vagina nightly for 14 days, THEN 0.5 g 2 (two) times a week for 360 days. 0.5 grams vaginally each night for two weeks and then twice weekly (ex. Wednesday and ). In additional to vaginal use, apply pea size amount to fingertip and rub in vulva and vaginal introitus.. Dispense: 42.5 g; Refill: 1 2. PCB (post coital bleeding) [place] handout provided regarding vaginal dryness. Discussed GuSM and how to use vaginal estrogen. Recommend lubricant with sexual activity. Pt has had a hysterectomy so no concern for endometrial pathology. RTO 3 months for follow-up, sooner if any further bleeding episodes. Pt is also due for annual exam. Can do annual and GuSM follow-up together if pt would like. Consider pap at annual exam if unable to find records of previous paps/documentation if cervix was removed. ELVIN Ramos 03/02/25 1132 documented in this encounter [facility] 03-02-2025 Instructions ELVIN Ramos - 03/02/2025 8:45 AM EDT Genitourinary syndrome of menopause includes bothersome symptoms that affect the vulva, vagina, urethra, and bladder. These symptoms may include vaginal dryness, burning, itching, or irritation; decreased lubrication or pain with sexual activity; urinary frequency, burning with urination, leaking urine, or more frequent UTIs. First-line treatments are nonhormonal vaginal moisturizers and lubricants. Local estrogen therapy may be used for women with no contraindications. OTC products: avoid warming agents, parabens, fragrance, flavors Product Examples: Good Clean Love, Slippery Stuff, Replens, pH-D Lubricant - short acting (good for sexual activity) Moisturizers - long acting, used 3 times weekly, often include hyaluronic acid to retain moisture Local estrogen cream is applied nightly for 2 weeks and then twice weekly thereafter. Insert 0.5 grams in the vagina using applicator and then a small pea-sized amount to your fingertip and rub cream into entrance of vagina, around urethra, clitoris, and labia. documented [facility] this [facility] Note [place] Cardiology - [facility] Subjective Aby Madrigal is a 59 y.o. year old female patient being seen for a 6 month follow up. Patient states things are going very well. Denies SOB, leg swelling, chest pain or palpitations. Patient states on Wednesday her blood pressure was low so she didn't take her blood pressure medication. Patient states it was 102/67. Patient states later that morning she took her isosorbide, patient states her blood pressure stayed 110 the rest of the day. Patient states she returned to the coreg the next morning with no issues. Patient Active Problem List Diagnosis BV (bacterial vaginosis) GERD (gastroesophageal reflux disease) Essential hypertension Sepsis (CMS/HCC) TIA (transient ischemic attack) QURESHI (dyspnea on exertion) Hyperlipidemia Murmur, heart Anxiety Type 2 diabetes mellitus without complication, without long-term current use of insulin (CMS/HCC) Chest pain Elevated troponin Hypomagnesemia NSTEMI (non-ST elevated myocardial infarction) (CMS/HCC) Hypokalemia Coronary artery disease involving [place] coronary artery of [place] heart without angina pectoris Depression, major, severe recurrence (CMS/HCC) Panic disorder Primary aldosteronism Resistant hypertension Hypertension due to endocrine disorder Adenoma of left adrenal gland Family History Problem Relation Name Age of Onset Lung cancer Mother Accidental Father Lung cancer Sister Social History Tobacco Use Smoking status: Former Current packs/day: 0.00 Average packs/day: 1 pack/day for 45.0 years (45.0 ttl pk-yrs) Types: Cigarettes Start date: 1976 Quit date: 2021 Years since quittin.2 Smokeless tobacco: Never Vaping Use Vaping status: Never Used Substance Use Topics Alcohol use: Not Currently [...] and V6. She was then admitted to [facility] on 07/11/2024 with NSTEMI. She [...] also following with endocrinology regarding adrenal adenoma. on 01/31/2025 she was evaluated at the [facility] because of chest pain. Workup was negative. She was discharged home. Today she reports that she has been doing well without any recurrence of chest pain. She reports that the pains that she had before were likely anxiety and not really cardiac pain. She reports no improvement with sublingual nitroglycerin when she was given that at the time of chest pain. She reports that she feels well today and she does not feel that she needs adjustment in medications. She reports that her blood pressure is usually well-controlled. Today it is elevated but she did not take her carvedilol. Review of Systems Cardiovascular: Palpitations: not a lot . Neurological: Positive for headaches (occasional.). All other systems reviewed and are negative. Objective Visit Vitals BP 146/82 (BP Location: Left arm, Patient Position: Sitting) Pulse 63 Ht 1.6 m (5' 3 ) Wt 90.7 kg (200 lb) SpO2 97% BMI 35.43 kg/m??? OB Status Postmenopausal Smoking Status Former BSA 2.01 m??? Physical Exam Constitutional: Appearance: She is [...] the left side. Heart sounds: Normal heart so (more content not included)... [facility] 02-07-2025 Note IR VENOGRAPHY VENOUS SAMPLE Procedure: Bilateral adrenal vein sampling Staff: Roxy Resident: None Contrast: 25 mL Omnipaque 300 iv Fluoroscopy time: 14.3 minutes pulsed at 7.5 pulses per second. Reference air kerma of 909 mGy Complications: None Medications: Versed 1 mg iv, Fentanyl 50 mcg iv. Moderate sedation was monitored by radiology nursing staff. Total sedation time 60 minutes Indication: Primary aldosteronism and left adrenal mass. Procedure: Using real-time ultrasound guidance, access to the right common femoral vein was achieved using a micropuncture set. A Ciplex wire was advanced into the IVC and a 5 [place] vascular sheath was placed. Selective catheterization of the right adrenal vein was performed using RDC catheter and samples obtained. There was another questionable right adrenal vein that was selected and sampled as well. Next, selective catheterization of the left adrenal vein was performed using a Park 3 catheter and samples obtained. A sample was also obtained from the IVC. Samples were hand carried to the laboratory to be tested for aldosterone and cortisol. At the conclusion of the procedure, the catheter was removed and hemostasis was obtained by manual compression. Ultrasound image was saved in PACS from records. Findings: Ultrasound shows an anechoic and compressible right common femoral vein. Impression: Successful bilateral adrenal vein sampling. Interpretation of laboratory results to follow separately. Finalized by Gage Núñez MD on 02/07/2025 10:05 PM [facility] 01-18-2025 Note Patient contacted of [facility], states she called [facility] to schedule the referral Dr. Christie had sent over, however no referral was received. [employer] faxed referral and recent visit note to [phone]. [facility] 01-09-2025 Note REASON FOR VISIT + H [...] metoprolol - Jun 2019 CT A/P in [place], [place] performed for abd pain, incidentally detected [...] (Imdur) 60 mg (more content not included)... [facility] 12-25-2024 Note [employer] spoke with Remington greene at [facility] regarding this patient. Tram said the way the order was placed through the system they just didn't see it, Tram assured group underwriter that patient was being scheduled at the secondary infusion location. Any questions or concerns call Tram at [phone]. [facility] [facility] 10-[facility]-2024 Note Attestation signed by Richa Viramontes MD at 10/27/2024 12:07 PM I have seen and examined the patient. I reviewed the resident/fellow note and I agree with the findings and plan. Richa Viramontes MD Interventional Pulmonary Medicine Pulmonary and Critical Care Medicine [facility] Visit Note Patient: Aby Madrigal Age: 59 y.o. : 1965 Account No.: [id number] Chief complaint: RML nodule HPI Aby Madrigal is a 59 y.o. female with hypertension, CAD status post PCI recently in June 2024, cigarette smoking who is presenting to clinic via telemedicine as a new patient after being referred by Dr. Jarocho Saldaña. Patient reports recent admission to [place] [facility] for hypertensive emergency. This prompted a CT of the chest which was positive for right middle lobe nodule. She then underwent PCI here at [facility] in June. She is currently [...] PFTs on file. CTA chest 04/21/2024 at [facility]: Right middle lobe approximately 1.2 cm solid nodule appreciated Subsequent PET CT 2024 at [facility]: Right middle lobe nodule is faintly [...] pretest probability of (more content not included)... [facility] 10-03-2024 Note REASON FOR VISIT + H [...] metoprolol - CT A/P Jun 2019 in [place], [place] performed for abd pain, incidentally detected [...] History: Diagnosis Date Abnormal ECG Diabetes mellitus ([facility]) Hyperlipidemia Hypertension Obstructive sleep apnea Panic attacks Stroke ([facility]) Past Surgical History: Procedure Laterality [...] 25 mg by (more content not included)... [facility] 09-04-2024 Note [place] Cardiology - [facility] Subjective Aby Madrigal is a 59 y.o. year old female patient being seen for follow up [facility] in Jun 2024 for hypotension. [...] infarction) (CMS/HCC) Hypokalemia Coronary artery disease involving [place] coronary artery of [place] heart without angina pectoris Depression, major, severe [...] and V6. She was then admitted to [facility] on 07/11/2024 with NSTEMI. She [...] and Affect: M (more content not included)... [facility] 07-20-2024 Note Attestation signed by [...] Age: 59 y.o. : 1965 Account No.: [id number] Referring physician: Dr. Jarocho Saldaña Chief complaint: RML nodule HPI Aby Madrigal is a 59 y.o. female with hypertension, CAD status post PCI recently in June 2024,, cigarette smoking who is presenting to IP clinic via telemedicine as a new patient after being referred by Dr. Jarocho Saldaña. Patient reports recent admission to [place] ICU for hypertensive emergency. This prompted a CT of the chest which was positive for right middle lobe nodule. She then underwent PCI here at [facility] in June. She is currently [...] [facility] [facility] Right middle lobe approximately 1 cm spiculated nodule appreciated [facility] Right middle lobe nodule is faintly PET [...] alcohol. She reports (more content not included)... [facility] 07-18-2024 Note REASON FOR VISIT [...] metoprolol - CT A/P Jun 2019 in [place], [place] performed for abd pain, incidentally detected [...] History: Diagnosis Date Abnormal ECG Diabetes mellitus ([facility]) Hyperlipidemia Hypertension Obstructive sleep apnea Panic attacks Stroke ([facility]) Past Surgical History: Procedure Laterality [...] Rfl: carvedilol (C (more content not included)... [facility] 07-18-2024 Note 07/18/24 1001 Referral Data Referral Source cannery worker Referral Reason Information Patient Information Primary Caregiver Self Activities of Daily Living Assistive Device Not applicable Living Arrangement (Current/Prior to Hospitalization) Private residence Behavior Oriented Discharge Planning Support Systems Children;Family members Type of Residence Private residence Patient's goal for discharge home Patient recently discharged from [facility] to home. Resides at home alone. Discharge plan is home. [facility] 07-18-2024 Note Patient sent to ED f or hypotension and dizziness/lightheadedness [facility] 07-12-2024 Note Hospital Medicine Discharge Summary Final Discharge Diagnosis: NSTEMI Admission Diagnosis: Hypokalemia [E87.6] NSTEMI (non-ST elevated myocardial infarction) ([facility]) [I21.4] Hypertensive urgency [I16.0] Adenoma of left adrenal gland [D35.02] Resistant hypertension [I1A.0] Atherosclerosis of [place] coronary artery of [place] heart without angina pectoris [I25.10] Coronary artery disease involving [place] coronary artery of [place] heart with unstable angina pectoris ([facility]) [I25.110] Type 2 diabetes mellitus without complication, without long-term current use of insulin ([facility]) [E11.9] Hospital course: 59yoF with CAD s/p LAD SARKIS 11 days ago who was admitted to [facility] on 07/11 for chest pain. patient initially presented to [facility] for uncomfortable feeling in her chest and was found to have elevated troponins and new ischemic changes on EKG. Infusion and cardiology was consulted transferred to [facility] for further evaluation. Initially the patient had blood pressures up to 192/65 for which home medications were restarted. Troponins at [facility] were negative and there were no EKG changes concerning for ischemia. Echo was performed which showed EF 70 to 75%. she was cleared from cardiology for discharge and had resolved. Surgical, Invasive or Diagnostic Procedures Done During Admission: None Consultations During Admission: Cardiology Dear Dr. Lidia MD, [facility] [...] [place] 07/20/2024 1:00 PM Richa Viramontes MD [facility] 09/05/2024 1:00 PM Bijan Mitchell MD [facility] Your medication list START taking these [...] Your Medications These medications were sent to [facility]/pharmacy #[id number] [facility], [place] - [address] [place] [address] [address] [facility] [address] isosorbide mononitrate ER 60 mg 24 hr [...] activity In process (more content not included)... [facility] 07-11-2024 Note 07/11/24 1817 Financial [...] place to sleep or slept in a fci (including now)? N Transportation Needs In the [...] than 3 How often do you attend zoroastrianism or yazdanism services? Never Do you belong to any clubs or organizations such as zoroastrianism groups, unions, SIVI or athletic groups, or school groups? No [...] In the past 12 months has the Stand Offer, gas, oil, or water [employer] threatened to shut off services in your home? 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 Source cannery worker Referral Reason Psychosocial assessment Patient Information Primary Caregiver Self Accompanied by/Relationship Daughter (Rosita); Zsbzdqtl-[id number] (Yesy) Activities of Daily Living Assistive Device Not applicable Living Arrangement (Current/Prior to Hospitalization) Private residence (Lives at home by herself) Ambulation Independent Dressing Independent Feeding Independent Behavior Oriented (A&Ox4) Communication Can write;Talks;Understands speaking;Understands Hebrew;Reads Income Information Income Source Unemployed (receives survivor benefits) Discharge Planning Support Systems Children;Family members (daughter, zzvleekc-nf-mdp, son) Type of Residence Private residence Will patient need Precert for Post Acute needs? No Patient's goal for discharge Home Does the patient need discharge transport arranged? No Completed social work assessment and SDoH screening. Patient was A&Ox4 at this time. Patient's daughter, Rosita, and patient's kskbjera-mt-uwj, Yesy, were currently present at bedside. Patient reported that she lives at home by herself and she identified her support system as her daughter, Rosita, her bpwzakau-qh-tuj, Yesy, and her son, Elie. Patient endorsed [...] any alcohol consumption or recreational drug use. [facility] 07-11-2024 Note Hospital Medicine History and Physical 07/11/2024 12:19 PM THE HOSPITALIST TEAM PREFERS TO USE [employer] CHAT FOR COMMUNICATION 7AM-7PM. IF I DO NOT RESPOND WITHIN 15 MINUTES, PLEASE PAGE ME/CALL THROUGH THE [facility]. FROM 7PM-7AM, PLEASE PAGE [phone](COVR) Chief Complaint Chief Complaint Patient presents with [...] s/p stent placement 11 days ago at [facility] presented to ER as a transfer from [facility] for NSTEMI. Patient states that last [...] 07/11/2024 Coronary artery disease involving [place] coronary artery of [place] heart with unstable angina pectoris ([facility]) 07/11/2024 Anxiety 06/30/2024 Type 2 diabetes mellitus without complication, without long-term current use of insulin ([facility]) 06/30/2024 Chest pain 06/30/2024 Elevated troponin 06/30/2024 Hypertensive urgency 06/30/2024 Hypomagnesemia 06/30/2024 QURESHI (dyspnea on exertion) 05/26/2024 Atherosclerosis of [place] coronary artery of [place] heart without angina pectoris 05/26/2024 Hyperlipidemia 05/26/2024 Murmur, heart 05/26/2024 Sepsis ([facility]) 07/14/2019 BV (bacterial vaginosis) 10/18/2017 GERD (gastroesophageal reflux disease) 10/18/2017 Essential hypertension 10/18/2017 TIA (transient ischemic attack) 10/18/2017 NSTEMI (non-ST elevated myocardial infarction) ([facility]) 06/29/2024 Assessment and Plan NSTEMI [...] for GI prophylaxis (more content not included)... [facility] 07-10-2024 Note [facility] Note Reason for cardiology [...] Take 1 tablet (more content not included)... [facility] 07-01-2024 Note Hospital Medicine Discharge [...] hypertension, IBS presents a direct mission from [facility] with a chief complaint of chest [...] seen on her EKG. She went to [facility] for the symptoms. Labs were completed [...] on a heparin drip and transferred to [facility] for likely cardiac cath. # [...] Center 07/10/2024 2:20 PM Bijan Mitchell MD [facility] Your medication list START taking these [...] Your Medications These medications were sent to [facility]/pharmacy #[id number] [address] carvedilol 25 mg tablet cloNIDine 0.1 mg [...] days Lab Units (more content not included)... [facility] 07-01-2024 Note [facility] CARDIOLOGY INPAT IENT PROGRESS NOTE Reason for follow up: NSTEMI Subjective Aby Madrigal, a 59 y.o. female patient, is transferred from [facility] for continuity of care. Patient reports that 3 days ago, she woke up in the mid of the night with indigestion, and a feeling fullness, but no pressure like chest pain. She presented to [facility], where she was found to be [...] 0.56 06/29/2024 E (more content not included)... [facility] 06-30-2024 Note Patient: Aby antony Procedure Information Date/Time: 06/30/24 1600 Procedure: Coronary angiography (Bilateral) Location: [facility] PRODUCT SAFETY LEAD 3 / [facility] [...] Plan discussed with attending. Additional Equipment Requests [facility] 06-30-2024 Note 06/30/24 1446 Referral Data Referral Source cannery worker Referral Reason Follow up;Information Patient Information Primary Caregiver Self Accompanied by/Relationship daughters at bedside Activities of Daily Living Assistive Device Not applicable Living Arrangement (Current/Prior to Hospitalization) Private residence (three to four stairs) Ambulation Independent Dressing Independent Feeding Independent Behavior Oriented Communication Talks;Understands speaking;Understands Hebrew Discharge Planning Support Systems Children (daughters will [...] questions for social work at this time. [facility] 06-30-2024 Note 06/30/24 1431 Admission [...] Interested Does the patient have a field nurse case manager assigned to them through their [...] to send link and activate MyChart? No [facility] 06-30-2024 Note Case was discussed w ith the SALVADOR on 06/29/2024. I agree with the history, physical, assessment, and plan of care. I discussed the findings and therapeutic plan. I agree with the documentation, except for any updates below. Maurice Nogueira MD [facility] 06-30-2024 Note Hospital Medicine History and Physical 06/30/2024 1:15 AM THE HOSPITALIST TEAM PREFERS TO USE [employer] FOR COMMUNICATION 7AM-7PM. IF I DO NOT RESPOND WITHIN 15 MINUTES, PLEASE PAGE ME/CALL THROUGH THE [facility]. FROM 7PM-7AM, PLEASE PAGE [phone](COVR) Chief Complaint Direct admission from [facility] with CP History of Present Illness Aby Madrigal is an 59 y.o. female who came from home with past medical history of anxiety, DM2, hypertension, IBS presents a direct mission from [facility] with a chief complaint of chest [...] seen on her EKG. She went to [facility] for the symptoms. Labs were completed [...] on a heparin drip and transferred to [facility] for likely cardiac cath. Review [...] complication, without long-term current use of insulin ([facility]) 06/30/2024 Chest pain 06/30/2024 Elevated troponin 06/30/2024 Hypertensive urgency 06/30/2024 QURESHI (dyspnea on exertion) 05/26/2024 Atherosclerosis of [place] coronary artery of [place] heart without angina pectoris 05/26/2024 Hyperlipidemia 05/26/2024 Murmur, heart 05/26/2024 Sepsis ([facility]) 07/14/2019 BV (bacterial vaginosis) 10/18/2017 GERD (gastroesophageal reflux disease) 10/18/2017 Essential hypertension 10/18/2017 TIA (transient ischemic attack) 10/18/2017 Assessment and Plan Aby Madrigal is an 59 y.o. female who came from home with past medical history of anxiety, DM2, hypertension, IBS presents a direct mission from [facility] with a chief complaint of chest pain. #Chest pain #Elevated troponin Troponin 0.1, will continue to trend -Patient continues to have mild chest discomfort upon arrival -Continue heparin drip -CXR negative for acute process at OSH -EKG showing normal sinus rhythm -N.p.o. for possible right and left cardiac cath in a.m. -Patient with new diastolic dysfunction on echoc (more content not included)... [facility] 06-21-2024 Note [place] Cardiology - [facility] Clinic Subjective Aby Madrigal is a 59 y.o. year old female patient being seen for follow up [facility] ED per Dr. Moran. She has not had the echo done yet that was ordered by Dr. Mitchell. Patient states Dr. Moran did not like [...] (dyspnea on exertion) Atherosclerosis of [place] coronary artery of [place] heart without angina pectoris Hyperlipidemia Murmur, heart [...] Judgment: Judgment no (more content not included)... [facility] 05-26-2024 Note [facility] Note Reason for cardiology [...] PSYCH: appropriate mood, (more content not included)... [facility] 11-25-2022 Note OPERATIVE NOTE OPERATION [...] 10 years. CC: Kendra Moran M.D. [facility] 10-11-2022 Note Chief Complaint consultation for [...] 1 tab(s), Oral, (more content not included)... [facility] Comment on above: Result Comment: Elec tronically Signed By: DIPESH BUCKNER, Umm Michael\.germania\Date and Time Signed: 10/11/22 11:01 EST Evaluation + Plan note No data available for this section General Surgery [place] Evaluation note Diagnosis Genitourinary syndrome of menopause- Primary PCB (post coital bleeding) Postcoital bleeding [facility] Work Phone: Hospital Discharge instructions No data available for this section General Surgery [place] Progress note No data available for this section General Surgery [place] Summary Purpose Family History Relationship Condition Age at Onset Recorded Date/T luke sister Malignant neoplasm Unknown mother Malignant neoplasm Unknown Advance Directives Advance Directive Response Recorded Date/ Time Advance Directives No September 1:40pm Chief Complaint and Reason for Visit Chief Complaint Admit Date head cold, congestion March 03, 2025 1 0:35am Additional Source Comments INFORMATION SOURCE (unrecogn ized section and content) DATE CREATED AUTHOR 12/17/2021 [facility] DATE CREATED AUTHOR AUTHOR'S ORGANIZ ATION 12/16/2022 [facility] DATE CREATED AUTHOR AUTHOR'S ORGANIZ ATION 03/26/2023 [facility] DATE CREATED AUTHOR AUTHOR'S ORGANIZ ATION 02/11/2025 [facility] DATE CREATED AUTHOR AUTHOR'S ORGANIZ ATION 03/01/2025 [facility] Patient Care team informatio n (unrecognized section and content) [employer] Relationship Specialty Start Date End Date Kendra Moran MD PCP - General Family Medicine 06/06/19 Team Status: Active Member Role Status Dates Kendra Moran MD Primary Care Provider Active Team Status: Inactive Member Role Status Dates Kendra Moran MD Primary Care Provider Active Start: March 03, 2025 End: March 03, 2025 Roxanne Jackson APRN Attending Provider Active Start: March 03, 2025 End: March 03, 2025 Reason for Visit (unrecogniz ed section and content) Reason Comments ESTABLISHED PATIENT Patient presents tod ay for vaginal bleeding after intercourse. Goals (unrecognized section and content) Goals may be documented in a n alternate section FOR RECORDS PERTAINING TO PATIENTS WHO ARE [...] BE BASED ON THE PRIMARY CLINICAL RECORDS. [employer] provides no warranty or guarantee of the accuracy or completeness of information in this document.
--- NOTE | 2025-03-03 21:02 | ED_ITS ---
HPI HPI - General Adult General Chief complaint: Abdominal Pain Stated complaint: ABD PAIN Time Seen by Provider: 03/03/25 20:57 Source: patient Mode of arrival: walk-in Limitations: no limitations History of Present Illness HPI narrative: cc - nausea Pt diagnosed with viral syndrome at today after 3 days of upper respiratory symptoms, muscle aches and negative swabs for COVID and influenza. Shortly after leaving the urgent care, she developed some nausea. No vomiting or diarrhea. No abdominal pain. She already takes Protonix for reflux. She tried taking Tums without relief. She asked me if she can get a GI cocktail here in the ED. No fever. No flank pain. No urinary symptoms. Related Data Home Medications ?Medication ?Instructions ?Recorded ?Confirmed metformin 500 mg tablet 500 mg PO BID 04/21/24 03/03/25 aspirin 81 mg capsule 81 mg PO DAILY 04/22/24 03/03/25 clopidogrel 75 mg tablet 75 mg PO DAILY 07/01/24 03/03/25 quetiapine 100 mg tablet (Seroquel) 100 mg PO .QHS 07/24/24 03/03/25 rosuvastatin 40 mg tablet 40 mg PO DAILY 07/24/24 03/03/25 isosorbide mononitrate 60 mg 60 mg PO BID 07/31/24 03/03/25 tablet,extended release 24 hr lorazepam 1 mg tablet (Ativan) 1 mg PO Q6H PRN anxiety 07/31/24 03/03/25 hydralazine 50 mg tablet 50 mg PO TID PRN hypertension 09/15/24 03/03/25 Previous Rx's ?Medication ?Instructions ?Recorded carvedilol 25 mg tablet 25 mg PO TID #90 tabs 07/27/24 canagliflozin 300 mg tablet 300 mg PO DAILY #30 tabs 11/13/24 (Invokana) pantoprazole 40 mg tablet,delayed 40 mg PO BID #60 tabs 11/13/24 release (Protonix) ondansetron 4 mg disintegrating 4 mg PO Q6H PRN nausea and 03/03/25 tablet vomiting #20 tabs Allergies Allergy/AdvReac Type Severity Reaction Status Date / Time lisinopril Allergy Severe Cough Verified 03/03/25 20:54 amlodipine Allergy Mild Headache Verified 03/03/25 20:54 alprazolam (From Xanax) AdvReac Severe Watery Eye Verified 03/03/25 20:54 Opioid HPI Opioid Management Most Recent Opioid Data: Last Pain Scale 2 02/08/25 14:50 02/08/25 Last ORT Total Score 4 11/12/24 11:27 11/12/24 Last ORT Risk Category Moderate Risk 11/12/24 11:27 11/12/24 PFSH PFSH Medical History Elevated troponin ?R79.89 - Other specified abnormal findings of blood chemistry (ICD-10) Hypertensive emergency ?I16.1 - Hypertensive emergency (ICD-10) Acute non-ST elevation myocardial infarction (NSTEMI) ?I21.4 - Non-ST elevation (NSTEMI) myocardial infarction (ICD-10) Chest pain ?R07.9 - Chest pain, unspecified (ICD-10) CAD (coronary artery disease) ?I25.10 - Atherosclerotic heart disease of [place] coronary artery without angina pectoris (ICD-10) Hypertensive urgency ?I16.0 - Hypertensive urgency (ICD-10) HTN (hypertension) ?I10 - Essential (primary) hypertension (ICD-10) Hypertensive urgency ?I16.0 - Hypertensive urgency (ICD-10) Chest pain ?R07.9 - Chest pain, unspecified (ICD-10) Anxiety ?F41.9 - Anxiety disorder, unspecified (ICD-10) HTN (hypertension) ?I10 - Essential (primary) hypertension (ICD-10) Hypokalemia ?E87.6 - Hypokalemia (ICD-10) Hypertension, uncontrolled ?I10 - Essential (primary) hypertension (ICD-10) Chest pain ?R07.9 - Chest pain, unspecified (ICD-10) NSTEMI (non-ST elevated myocardial infarction) ?I21.4 - Non-ST elevation (NSTEMI) myocardial infarction (ICD-10) Shortness of breath ?R06.02 - Shortness of breath (ICD-10) Headache ?R51.9 - Headache, unspecified (ICD-10) Elevated d-dimer ?R79.89 - Other specified abnormal findings of blood chemistry (ICD-10) Hypertensive emergency ?I16.1 - Hypertensive emergency (ICD-10) Uncontrolled hypertension ?I10 - Essential (primary) hypertension (ICD-10) Irritable bowel syndrome ?K58.9 - Irritable bowel syndrome without diarrhea (ICD-10) H/O nephrolithotomy with removal of calculi ?Z98.890 - Other specified postprocedural states (ICD-10) ?Z87.442 - Personal history of urinary calculi (ICD-10) Kidney stone ?N20.0 - Calculus of kidney (ICD-10) Sepsis ?A41.9 - Sepsis, unspecified organism (ICD-10) H/O angiography ?Z92.89 - Personal history of other medical treatment (ICD-10) Lung nodule ?R91.1 - Solitary pulmonary nodule (ICD-10) Anxiety ?F41.9 - Anxiety disorder, unspecified (ICD-10) HTN (hypertension) ?I10 - Essential (primary) hypertension (ICD-10) Diabetes ?E11.9 - Type 2 diabetes mellitus without complications (ICD-10) TIA (transient ischemic attack) ?G45.9 - Transient cerebral ischemic attack, unspecified (ICD-10) Surgical History H/O heart artery stent ?Z95.5 - Presence of coronary angioplasty implant and graft (ICD-10) History of appendectomy ?Z90.49 - Acquired absence of other specified parts of digestive tract (ICD- 10) H/O tubal ligation ?Z98.51 - Tubal ligation status (ICD-10) History of cholecystectomy ?Z90.49 - Acquired absence of other specified parts of digestive tract (ICD- 10) Family History Mother Family history of cancer Father MVA (motor vehicle accident) Brother Family history of stroke Social History Within the past year, how often did you have a drink containing alcohol: never Within the past year, how often did you have six or more drinks on one occasion: never Score interpretation: A score less than 3 is consistent with normal alcohol consumption. Smoking status: Former smoker Second hand tobacco smoke exposure: No Non-prescribed substance use: denies use Previous occupational history: no Known occupational exposures/hazards: No Highest level of school completed/degree received: high school graduate Do you want help with school or training: No Are you now , , , , never or living with a partner: In a typical week, how many times do you talk on the telephone with family, friends, or neighbors: 3 or more times per week How often do you get together with friends or relatives: 3 or more times per week How often do you attend sikh or buddhist services: never Do you belong to any clubs or organizations such as sikh groups unions, fraternal or athletic groups, or school groups: no Total score: 1 Score interpretation: A score of less than or equal to 1 indicates the most socially isolated. Little interest or pleasure in doing things: not at all Feeling down, depressed, or hopeless: not at all Feel stressed/tense/nervous/anxious/difficulty sleeping: not at all Do you think of yourself as: straight/heterosexual Gender Identity: female Exam Narrative Exam Narrative: Nurses notes and vital signs reviewed and patient is not hypoxic. afebrile General: Well-appearing and in no apparent distress. Skin: Warm, dry, no pallor noted. No rash. Head: Normocephalic, atraumatic. Neck: Supple, non-tender. No meningismus Eye: Pupils are equal, round and EOMI. No scleral icterus. Ears, Nose, Mouth, and Throat: Oral mucosa is moist Cardiovascular: Regular Rate and Rhythm without murmur, gallop or rub. Respiratory: No accessory muscle use or respiratory distress. Lungs are clear to auscultation, no wheezing, rales or rhonchi Back: No CVA tenderness Musculoskeletal: normal ROM GI: Abdomen is soft, non-distended. Normal bowel sounds. No masses appreciated. No tenderness to palpation. No rebound, guarding, or rigidity noted. Neurological: A&O x4. No cranial nerve dysfunction observed. No truncal ataxia. Moves all extremities. Sensation intact. Psychiatric: Cooperative and interactive. Normal mood and affect. Constitutional Vital Signs, click to edit/add: Last Vital Signs Temp 99.0 F 03/03/25 20:50 Pulse 94 H 03/03/25 20:50 Resp 16 03/03/25 20:50 BP 165/84 H 03/03/25 20:50 Pulse Ox 94 L 03/03/25 20:50 O2 Del Method Room Air 03/03/25 20:50 Course Vital Signs Vital signs: Vital Signs Temperature 99.0 F 03/03/25 20:50 Pulse Rate 94 H 03/03/25 20:50 Respiratory Rate 16 03/03/25 20:50 Blood Pressure 165/84 H 03/03/25 20:50 Pulse Oximetry 94 L 03/03/25 20:50 Oxygen Delivery Method Room Air 03/03/25 20:50 Temperature 99.0 F 03/03/25 20:50 Pulse Rate 94 H 03/03/25 20:50 Respiratory Rate 16 03/03/25 20:50 Blood Pressure 165/84 H 03/03/25 20:50 Pulse Oximetry 94 L 03/03/25 20:50 Oxygen Delivery Method Room Air 03/03/25 20:50 Medical Decision Making [facility] Narrative Medical decision making narrative: Patient is developing some nausea in association with her viral syndrome which initially manifested as upper respiratory symptoms. She is not vomiting. Vital signs do not show hypotension or tachycardia. She will receive oral dissolvable Zofran and be discharged home with a prescription for the same. She does not need a GI cocktail at this time and this may worsen her nausea. She was instructed to take her prescribed medications as directed. She was instructed maintain a clear liquid diet until her nausea resolved Discharge Plan Discharge Chief Complaint: Abdominal Pain Clinical Impression: Nausea, Acute viral syndrome Patient Disposition: Home, Self-Care Time of Disposition Decision: 21:01 Prescriptions / Home Meds: New ondansetron 4 mg tablet,disintegrating 4 mg PO Q6H PRN (Reason: nausea and vomiting) Qty: 20 0RF No Action metformin 500 mg tablet 500 mg PO BID aspirin 81 mg capsule 81 mg PO DAILY rosuvastatin 40 mg tablet 40 mg PO DAILY quetiapine [Seroquel] 100 mg tablet 100 mg PO .QHS Rx Instructions: AT HS carvedilol 25 mg Tablet 25 mg PO TID Qty: 90 11RF isosorbide mononitrate 60 mg Tablet Extended Release 24 Hr 60 mg PO BID lorazepam [Ativan] 1 mg tablet 1 mg PO Q6H PRN (Reason: anxiety) hydralazine 50 mg tablet 50 mg PO TID PRN (Reason: hypertension) Rx Instructions: States takes it if syst>150 Invokana 300 mg tablet 300 mg PO DAILY Qty: 30 11RF pantoprazole [Protonix] 40 mg tablet,delayed release (DR/EC) 40 mg PO BID Qty: 60 11RF clopidogrel 75 mg tablet 75 mg PO DAILY Print Language: Azeri Instructions: Acute Nausea and Vomiting (ED), Viral Syndrome (ED) Referrals: Carlito Murillo MD [Primary Care Provider] - 1 week
[2025-03-03] MEDS: ONDANSETRON 4 MG RAPDIS TABLET SL (21:06)
--- NOTE | 2025-03-03 21:11 | PC.NURSE ---
this patient complains of nausea after eat a chicken sandwich this after noon. this patient voices no other complaints and this patient shows no signs of distress
--- NOTE | 2025-03-03 21:13 | PC.NURSE ---
i gave this patient verbal and written discharge orders along with 1 e-script, this patient voices yes to understanding these. at time of discharge this patient voices no concerns and shows no signs of distress
== END 2025-03-03 21:13 | disposition home or self-care (01) ==
PROVIDERS: Emergency Provider Emergency Medicine; PCP Family Medicine
DX: R11.0 Nausea (principal); B34.9 Viral infection, unspecified
CPT/HCPCS: 99283; Q0162

== ENCOUNTER 2025-03-12 12:13 | Emergency (ER) | payer MEDICAID, SELFPAY ==
[2025-03-12 12:17] VITALS: BP 134/74; PULSE 76; TEMP 36.3; O2SAT 97; BMI 35.4
--- NOTE | 2025-03-12 12:24 | ED_ITS ---
HPI HPI - General Adult General Chief complaint: Skin/Abscess/Foreign Body Stated complaint: NOSE SWELLING Time Seen by Provider: 03/12/25 12:14 Source: patient Mode of arrival: walk-in Limitations: no limitations History of Present Illness HPI narrative: 59-year-old female presents for some mild swelling and redness and discomfort to the left side of her nose. She has had it for about a week and there is no history of injury. She is worried about an infection. She uses a CPAP machine at home. No drainage or fever. Related Data Home Medications ?Medication ?Instructions ?Recorded ?Confirmed metformin 500 mg tablet 500 mg PO BID 04/21/24 03/03/25 aspirin 81 mg capsule 81 mg PO DAILY 04/22/24 03/03/25 clopidogrel 75 mg tablet 75 mg PO DAILY 07/01/24 03/03/25 quetiapine 100 mg tablet (Seroquel) 100 mg PO .QHS 07/24/24 03/03/25 rosuvastatin 40 mg tablet 40 mg PO DAILY 07/24/24 03/03/25 isosorbide mononitrate 60 mg 60 mg PO BID 07/31/24 03/03/25 tablet,extended release 24 hr lorazepam 1 mg tablet (Ativan) 1 mg PO Q6H PRN anxiety 07/31/24 03/03/25 hydralazine 50 mg tablet 50 mg PO TID PRN hypertension 09/15/24 03/03/25 Previous Rx's ?Medication ?Instructions ?Recorded carvedilol 25 mg tablet 25 mg PO TID #90 tabs 07/27/24 canagliflozin 300 mg tablet 300 mg PO DAILY #30 tabs 11/13/24 (Invokana) pantoprazole 40 mg tablet,delayed 40 mg PO BID #60 tabs 11/13/24 release (Protonix) ondansetron 4 mg disintegrating 4 mg PO Q6H PRN nausea and 03/03/25 tablet vomiting #20 tabs cephalexin 500 mg capsule 500 mg PO QID 10 days #40 caps 03/12/25 sulfamethoxazole 800 1 tab PO BID 10 days #20 tabs 03/12/25 mg-trimethoprim 160 mg tablet (Bactrim DS) Allergies Allergy/AdvReac Type Severity Reaction Status Date / Time lisinopril Allergy Severe Cough Verified 03/03/25 20:54 amlodipine Allergy Mild Headache Verified 03/03/25 20:54 alprazolam (From Xanax) AdvReac Severe Watery Eye Verified 03/03/25 20:54 Opioid HPI Opioid Management Most Recent Opioid Data: Last Pain Scale 2 02/08/25 14:50 02/08/25 Last ORT Total Score 4 11/12/24 11:27 11/12/24 Last ORT Risk Category Moderate Risk 11/12/24 11:27 11/12/24 Review of Systems ROS Narrative A ten point review of systems is negative except as noted above. PFSH PFS Medical History Elevated troponin ?R79.89 - Other specified abnormal findings of blood chemistry (ICD-10) Hypertensive emergency ?I16.1 - Hypertensive emergency (ICD-10) Acute non-ST elevation myocardial infarction (NSTEMI) ?I21.4 - Non-ST elevation (NSTEMI) myocardial infarction (ICD-10) Chest pain ?R07.9 - Chest pain, unspecified (ICD-10) CAD (coronary artery disease) ?I25.10 - Atherosclerotic heart disease of [place] coronary artery without angina pectoris (ICD-10) Hypertensive urgency ?I16.0 - Hypertensive urgency (ICD-10) HTN (hypertension) ?I10 - Essential (primary) hypertension (ICD-10) Hypertensive urgency ?I16.0 - Hypertensive urgency (ICD-10) Chest pain ?R07.9 - Chest pain, unspecified (ICD-10) Anxiety ?F41.9 - Anxiety disorder, unspecified (ICD-10) HTN (hypertension) ?I10 - Essential (primary) hypertension (ICD-10) Hypokalemia ?E87.6 - Hypokalemia (ICD-10) Hypertension, uncontrolled ?I10 - Essential (primary) hypertension (ICD-10) Chest pain ?R07.9 - Chest pain, unspecified (ICD-10) NSTEMI (non-ST elevated myocardial infarction) ?I21.4 - Non-ST elevation (NSTEMI) myocardial infarction (ICD-10) Shortness of breath ?R06.02 - Shortness of breath (ICD-10) Headache ?R51.9 - Headache, unspecified (ICD-10) Elevated d-dimer ?R79.89 - Other specified abnormal findings of blood chemistry (ICD-10) Hypertensive emergency ?I16.1 - Hypertensive emergency (ICD-10) Uncontrolled hypertension ?I10 - Essential (primary) hypertension (ICD-10) Irritable bowel syndrome ?K58.9 - Irritable bowel syndrome without diarrhea (ICD-10) H/O nephrolithotomy with removal of calculi ?Z98.890 - Other specified postprocedural states (ICD-10) ?Z87.442 - Personal history of urinary calculi (ICD-10) Kidney stone ?N20.0 - Calculus of kidney (ICD-10) Sepsis ?A41.9 - Sepsis, unspecified organism (ICD-10) H/O angiography ?Z92.89 - Personal history of other medical treatment (ICD-10) Lung nodule ?R91.1 - Solitary pulmonary nodule (ICD-10) Anxiety ?F41.9 - Anxiety disorder, unspecified (ICD-10) HTN (hypertension) ?I10 - Essential (primary) hypertension (ICD-10) Diabetes ?E11.9 - Type 2 diabetes mellitus without complications (ICD-10) TIA (transient ischemic attack) ?G45.9 - Transient cerebral ischemic attack, unspecified (ICD-10) Surgical History H/O heart artery stent ?Z95.5 - Presence of coronary angioplasty implant and graft (ICD-10) History of appendectomy ?Z90.49 - Acquired absence of other specified parts of digestive tract (ICD-1 0) H/O tubal ligation ?Z98.51 - Tubal ligation status (ICD-10) History of cholecystectomy ?Z90.49 - Acquired absence of other specified parts of digestive tract (ICD- 10) Family History Mother Family history of cancer Father MVA (motor vehicle accident) Brother Family history of stroke Social History Within the past year, how often did you have a drink containing alcohol: never Within the past year, how often did you have six or more drinks on one occasion: never Score interpretation: A score less than 3 is consistent with normal alcohol consumption. Smoking status: Former smoker Second hand tobacco smoke exposure: No Non-prescribed substance use: denies use Previous occupational history: no Known occupational exposures/hazards: No Highest level of school completed/degree received: high school graduate Do you want help with school or training: No Are you now , , , , never or living with a partner: In a typical week, how many times do you talk on the telephone with family, friends, or neighbors: 3 or more times per week How often do you get together with friends or relatives: 3 or more times per week How often do you attend synagogue or mandaeism services: never Do you belong to any clubs or organizations such as synagogue groups unions, fraternal or athletic groups, or school groups: no Total score: 1 Score interpretation: A score of less than or equal to 1 indicates the most socially isolated. Little interest or pleasure in doing things: not at all Feeling down, depressed, or hopeless: not at all Feel stressed/tense/nervous/anxious/difficulty sleeping: not at all Do you think of yourself as: straight/heterosexual Gender Identity: female Exam Narrative Exam Narrative: Nurses note and vital signs reviewed and patient is not hypoxic. General: The patient appears well and in no apparent distress. Patient is resting comfortably on cart. Skin: Warm, dry, no pallor noted. There is no rash noted. Head: Normocephalic, atraumatic Eye: Normal conjunctiva, no drainage Ears, Nose, Mouth, and Throat: oral mucosa is moist. Nares patent. The left side of the nose has some mild erythema and some tenderness. There is no abscess intranasally or externally. Cardiovascular: Regular Rate and Rhythm Respiratory: Patient is in no distress, no accessory muscle use, lungs are clear to auscultation, no wheezing, rales or rhonchi Back: non-tender GI: Soft and nontender Musculoskeletal: The patient has no evidence of calf tenderness, no pitting edema, symmetrical pulses noted bilaterally Neurological: A&O, normal speech Psychiatric: Cooperative Constitutional Vital Signs, click to edit/add: Last Vital Signs Temp 97.4 F L 03/12/25 12:17 Pulse 76 03/12/25 12:17 Resp 16 03/12/25 12:17 BP 134/74 03/12/25 12:17 Pulse Ox 97 03/12/25 12:17 O2 Del Method Room Air 03/12/25 12:17 Course Vital Signs Vital signs: Vital Signs Temperature 97.4 F L 03/12/25 12:17 Pulse Rate 76 03/12/25 12:17 Respiratory Rate 16 03/12/25 12:17 Blood Pressure 134/74 03/12/25 12:17 Pulse Oximetry 97 03/12/25 12:17 Oxygen Delivery Method Room Air 03/12/25 12:17 Temperature 97.4 F L 03/12/25 12:17 Pulse Rate 76 03/12/25 12:17 Respiratory Rate 16 03/12/25 12:17 Blood Pressure 134/74 03/12/25 12:17 Pulse Oximetry 97 03/12/25 12:17 Oxygen Delivery Method Room Air 03/12/25 12:17 Medical Decision Making MDM Narrative Medical decision making narrative: My clinical impression is that she has mild cellulitis. Treatment diagnosis and follow-up were discussed with the patient. Differential Diagnosis Differential Diagnosis: Cellulitis, abscess, injury Discharge Plan Discharge Chief Complaint: Skin/Abscess/Foreign Body Clinical Impression: Cellulitis of nose Patient Disposition: Home, Self-Care Time of Disposition Decision: 12:23 Condition: Good Mode of Transportation: Private Vehicle Prescriptions / Home Meds: New sulfamethoxazole-trimethoprim [Bactrim DS] 800-160 mg tablet 1 tab PO BID 10 Days Qty: 20 0RF cephalexin 500 mg capsule 500 mg PO QID 10 Days Qty: 40 0RF No Action metformin 500 mg tablet 500 mg PO BID aspirin 81 mg capsule 81 mg PO DAILY rosuvastatin 40 mg tablet 40 mg PO DAILY quetiapine [Seroquel] 100 mg tablet 100 mg PO .QHS Rx Instructions: AT HS carvedilol 25 mg Tablet 25 mg PO TID Qty: 90 11RF isosorbide mononitrate 60 mg Tablet Extended Release 24 Hr 60 mg PO BID lorazepam [Ativan] 1 mg tablet 1 mg PO Q6H PRN (Reason: anxiety) hydralazine 50 mg tablet 50 mg PO TID PRN (Reason: hypertension) Rx Instructions: States takes it if syst>150 Invokana 300 mg tablet 300 mg PO DAILY Qty: 30 11RF pantoprazole [Protonix] 40 mg tablet,delayed release (DR/EC) 40 mg PO BID Qty: 60 11RF ondansetron 4 mg tablet,disintegrating 4 mg PO Q6H PRN (Reason: nausea and vomiting) Qty: 20 0RF clopidogrel 75 mg tablet 75 mg PO DAILY Print Language: Swedish Instructions: Cellulitis (ED) Additional Instructions: Warm compress for 10 minutes 3-4 times a day Referrals: Carlito Murillo MD [Primary Care Provider] - 1 week
--- OUTSIDE RECORDS SUMMARY | 2025-03-12 12:32 | XMS_ITS | CCD ---
Author Organization [facility] CliniSymi Care Team Providers Care Lcpc Name Role Phone Kendra Moran Primary Care Physician [phone] Umm LANDON Attending Unavailable NILLUmm Attending Unavailable [...] Primary Care Unavailable GAGE NÚÑEZ Admitting Unavailable Kendra Moran MD Primary Care Provider FARZANA ELY Attending Unavailable KENDRA MORAN Referring Unavailable KENDRA MORAN Primary Care Unavailable HOY, KENDRA M Referring Unavailable HOY, KENDRA M Primary Care Unavailable HOY, KENDRA M Referring Unavailable HOY, KENDRA M Primary Care Unavailable MONICA, FEDERICA Referring Unavailable HORANI, NONA Referring Unavailable FENG CHRISTIE Attending Unavailable OMBALLI, RICHA Attending Unavailable TOFLINSKI, FEDERICA Referring Unavailable JOSE BETANCUR Referring Unavailable HORANI, NONA Admitting Unavailable TAO NASSAR Attending Unavailable HERMINIA JULIAN Attending Unavailable JOFENG STARKEY Referring Unavailable OMBALLI, RICHA Referring Unavailable OMBALLI, RICHA Referring Unavailable STEPHENBIJAN Marcelino Attending Unavailable FENG CHRISTIE Attending Unavailable MACMESERET Referring Unavailable JODEFENG Fowler Attending Unavailable HORANI, NONA Referring Unavailable STEPHENBIJAN Attending Unavailable MOUKARBELGOMEZ Attending Unavailable JODEFENG Fowler Attending Unavailable MOUKARBELGMOEZ Attending Unavailable OMBALLI, RICHA Attending Unavailable HORANI, NONA Referring Unavailable HOY, KENDRA Referring Unavailable HORANI, NONA Admitting Unavailable HORANI, NONA Attending Unavailable HORANI, NONA Referring Unavailable MOUKARBELGOMEZ Attending Unavailable HERMINIA JULIAN Referring Unavailable PIRKL, FELECIA Referring Unavailable Allergies Allergy Classification Reported Allergen(s) Allergy Type Date of Onset Reaction(s) Facility (1 source) No Known Medication Allergies; Translations: [No Known Medication Allergies] Propensity to adverse reactions (disorder) [facility] Repository (4 sources) ALPRAZolam; Translations: [ALPRAZOLAM] Drug Allergy 4 Abnormal Behavior [facility] Repository (5 sources) amLODIPine; Translations: [AMLODIPINE] Drug Allergy 4 Other (See Comments) [facility] Repository (5 sources) Lisinopril; Translations: [LISINOPRIL] Drug Allergy 4 Cough [facility] Repository (1 source) LORazepam Drug Allergy 5 Unknown Reaction [facility] Medications Current Medications Medication Drug Class(es) Dates [...] Translations: [Non-ST elevation (NSTEMI) myocardial infarction] Onset: Chronic Anxiety disorders (8 sources) Anxiety; Translations: [Panic disorder] Onset: 2 08-02-2019 Chronic Comment on above: Problem List clean-u p per request of Phys. EHR Cmte Complication of device; implant or graft (2 sources) Retained ureteric stent 08-29-2019 Episodic Coronary atherosclerosis and other heart disease (7 sources) Coronary arteriosclerosis; Translations: [Atherosclerotic heart disease of quechan coronary artery without angina pectoris] Onset: 3 [...] sources) Allergic conjunctivitis 09-30-2022 Episodic Menopausal disorders (2 sources) Genitourinary syndrome of menopause; Translations: [Other specified menopausal and perimenopausal disorders] Onset: 5 03-02-2025 Chronic Mood disorders (3 sources) Depressive [...] [Postcoital and contact bleeding] 03-02-2025 Chronic Other female genital disorders (1 source) Postcoital and contact bleeding; Translations: [Postcoital and contact bleeding] Onset: 5 Chronic Other gastrointestinal disorders (2 sources) Adrenal [...] EXPOS COVID-19] Onset: 3 Unclassified (1 source) ESTABLISHED PATIENT Onset: 5 Unclassified (1 source) Resistant hypertension; Translations: [Resistant [...] Onset: 4 Episodic Other aftercare (1 source) assisted (current) use of aspirin; Translations: [ASSISTED CURRENT USE OF ASPIRIN] Onset: 3 Episodic Other aftercare (1 source) Other longterm (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 therapy; Translations: [OTH 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 Patient met criteria for selectivity index and lateralization index 2.09 towards the right. Discussed results with colleagues in weekly case conference. General consensus was to reaffirm diagnosis of primary aldosteronism with sodium loading test. Discussed results with the patient over the phone. Patient would like to continue on and pursue adrenalectomy. I discussed I would like to obtain further confirmation with oral sodium loading test. She is in agreement with this. Plan: Sending over instructions for oral sodium loading test and urine collection. If results consistent with primary aldosteronism will proceed to surgical evaluation [facility] Orders Only03-02-2025 Orders Only [id number] Aby Madrigal 1965 Date Provider Department Center 03/02/2025 [id number]-KULZH, [facility] Family History Problem Relation Age of Onset Lung cancer Mother Accidental Father Lung cancer Sister Family Status - Relation Status Age at Mother Father Sister Brother Alive [facility] 02-28-2025 36 Results [facility] you. [facility] Please call patient and let her know that I've requested the test results from [facility] ([facility]) Ill be able to discuss the results with her tomorrow Thank you [facility] 02-26-2025 36 Patient called regarding IR venography she had done 02/07. Requesting to discuss results and how she should follow up per Dr. Christie [facility] Office Visiton 02-26-2025 Follow-up visit [id number] Aby Madrigal 1965 Date Provider Department Center 02/26/2025 [facility]-GOMEZ [facility] Family History Problem Relation Age of Onset Lung cancer Mother Accidental Father Lung cancer Sister Family Status - Relation Status Age at Mother Father Sister Brother Alive Level of Service:80798 MO OFFICE/OUTPATIENT ESTABLISHED LOW MDM 20 MIN Normal [facility] Cortisol [Mass/Vol]on 2024 CORTISOL 5.2 ug/dL Normal [facility] Comment on above: Result Comment: Due to the diurnal variation of cortisol levels in normal subjects, all cortisol measurements should be referenced to the time of day of sample collection. AM Cortisol Age>=6 6.7-22.4 ug/dL PM Cortisol Age>=6 <10 ug/dL Performed By: #### 2 143-6 #### [facility] ([id number]) [address] [place] [address], [address] [place] [address] CORTISOL 5.2 ug/dL Normal [facility] Comment on above: Result Comment: Due to the diurnal variation of cortisol levels in normal subjects, all cortisol measurements should be referenced to the time of day of sample collection. AM Cortisol Age>=6 6.7-22.4 ug/dL PM Cortisol Age>=6 <10 ug/dL Performed By: #### 2 143-6 #### [facility] ([id number]) [address] [place] [address], [address] [place] [address] CORTISOL 10.9 ug/dL Normal [facility] Comment on above: Result Comment: Due to the diurnal variation of cortisol levels in normal subjects, all cortisol measurements should be referenced to the time of day of sample collection. AM Cortisol Age>=6 6.7-22.4 ug/dL PM Cortisol Age>=6 <10 ug/dL Performed By: #### 2 143-6 #### [facility] ([id number]) [address], [address] [place] [address] CORTISOL 11.1 ug/dL Normal [facility] Comment on above: Result Comment: Due to the diurnal variation of cortisol levels in normal subjects, all cortisol measurements should be referenced to the time of day of sample collection. AM Cortisol Age>=6 6.7-22.4 ug/dL PM Cortisol Age>=6 <10 ug/dL Performed By: #### 2 143-6 #### [facility] ([id number]) [address], [address] [place] [address] CORTISOL 5.7 ug/dL Normal [facility] Comment on above: Result Comment: Due to the diurnal variation of cortisol levels in normal subjects, all cortisol measurements should be referenced to the time of day of sample collection. AM Cortisol Age>=6 6.7-22.4 ug/dL PM Cortisol Age>=6 <10 ug/dL Performed By: #### 2 143-6 #### [facility] ([id number]) [address], [address] [place] [address] CORTISOL 14.3 ug/dL Normal [facility] Comment on above: Result Comment: Due to the diurnal variation of cortisol levels in normal subjects, all cortisol measurements should be referenced to the time of day of sample collection. AM Cortisol Age>=6 6.7-22.4 ug/dL PM Cortisol Age>=6 <10 ug/dL Performed By: #### 2 143-6 #### [facility] ([id number]) [address] [facility], [address] GENERIC ORDERon 025 TEST NAME AIVC INFERIOR VENA CAVA Normal [facility] Comment on above: Result Comment: Cody ected on 02/07 AT 1204: Previously reported as INFERIOR VENA CAVA TEST RESULT SEE COMMENTS 02/10/2025 12:12 AM Normal [facility] Comment on above: Result Comment: NOTE Test Result Flag Unit RefValue Aldosterone, IVC <4.0 ng/dL Not applicable ADDITIONAL INFORMATION This test was developed and its performance characteristics determined by [facility] in a manner consistent with CLIA requirements. This test has not been cleared or approved by the U.S. Food and Drug Administration. Test Performed by: [address] [address] Stamp Presser: Shawanda Jimenez Ph.D.; CLIA# [id number] Result Comment: NOTE Test Result Flag Unit RefValue Aldosterone, LAV 32 ng/dL Not applicable ADDITIONAL INFORMATION This test was developed and its performance characteristics determined by [facility] in a manner consistent with CLIA requirements. This test has not been cleared or approved by the U.S. Food and Drug Administration. Test Performed by: [facility] [place] [address] Stamp Presser: Shawanda Jimenez Ph.D.; CLIA# [id number] Result Comment: NOTE Test Result Flag Unit RefValue Aldosterone, LAV 28 ng/dL Not applicable ADDITIONAL INFORMATION This test was developed and its performance characteristics determined by [facility] in a manner consistent with CLIA requirements. This test has not been cleared or approved by the U.S. Food and Drug Administration. Test Performed by: [facility] [place] [address] Stamp Presser: Shawanda Jimenez Ph.D.; CLIA# [id number] Result Comment: NOTE Test Result Flag Unit RefValue Aldosterone, KELLEY <4.0 ng/dL Not applicable ADDITIONAL INFORMATION This test was developed and its performance characteristics determined by [facility] in a manner consistent with CLIA requirements. This test has not been cleared or approved by the U.S. Food and Drug Administration. Test Performed by: [facility] [place] [address] Stamp Presser: Shawanda Jimenez Ph.D.; CLIA# [id number] Result Comment: NOTE Test Result Flag Unit RefValue Aldosterone, KELLEY 74 ng/dL Not applicable ADDITIONAL INFORMATION This test was developed and its performance characteristics determined by [facility] in a manner consistent with CLIA requirements. This test has not been cleared or approved by the U.S. Food and Drug Administration. Test Performed by: [facility] [address] [place] [address] Stamp Presser: Shawanda Jimenez Ph.D.; CLIA# [id number] TEST NAME ALAV LEFT ADRENAL Normal [facility] TEST NAME ALAV LEFT ADRENAL Normal [facility] TEST NAME ARAV RIGHT ADRENAL Normal [facility] TEST NAME ARAV RIGHT ADRENAL Normal [facility] Telephoneon 01-18-2025 Telephone [id number] Aby aMdrigal S 1965 F Date Provider Department Center 01/18/202513666-WQZNMFENG [facility] Family History Problem Relation Age of Onset Lung cancer Mother Accidental Father Lung cancer Sister Family Status - Relation Status Age at Mother Father Sister Brother Alive [facility] Follow-Upon 01-09-2025 Follow-Up [id number] Aby Madrigal S 1965 F Date Provider Department Center 01/09/2025 [id number]-IVUMZFENG [facility] Family History Problem Relation Age of Onset Lung cancer Mother No Known Problems Father Lung cancer Sister Family Status - Relation Status Age at Mother Father Sister Level of Service:23981 MO OFFICE/OUTPATIENT ESTABLISHED LOW MDM 20 MIN [facility] 36on 01-04-2025 36 Called patient's [...] time. Melanie thanked me for the call [facility] 36on 01-03-2025 36 Voicemail. Patient's daughter called in, she thought Dr. Christie was going to order testing where they go in through the groin to see which kidney is dumping off excess hormones, she would like a call back. Normal [facility] Telephoneon 01-03-2025 Telephone [id number] Aby Madrigal 1965 F Date Provider Department Center 01/03/2025 [id number]-EDYKU, [facility] Family History Problem Relation Age of Onset Lung cancer Mother No Known Problems Father Lung cancer Sister Family Status - Relation Status Age at Mother Father Sister [facility] ALDOSTERONEon 01-02-2025 ALDOSTERONE (NG/DL) IN SER/PLAS 7.3 ng/dL [facility] Comment on above: [...] reference intervals for this test in the [facility] [facility] Test Directory ([employer]). Performed By: [facility] [address] [place] [address] Production Floater: Navneet Simeon MD, PhD CLIA Number: [id number] Performed By: #### L AB557 ####[facility] (FARAZ)[address] [place] [address] ALDOSTERONE (NG/DL) IN SER/PLAS 14.2 ng/dL Normal [facility] Comment on above: [...] reference intervals for this test in the [employer] [facility] Test Directory ([employer]). Performed By: [facility] [address] [place] [address] Production Floater: Navneet Simeon MD, PhD CLIA Number: [id number] Performed By: #### L AB557 ####[facility] ([facility] [place] [address] CORTISOLon 01-02-2025 CORTISOL (UG/DL) IN SER/PLAS 3.6 ug/dL Normal 0-9 [facility] Comment on above: Performed By: #### L AB61 ####[facility] (BEAKER)[address] [place] [address] CORTISOL (UG/DL) IN SER/PLAS 9.0 ug/dL Normal 6-23 [facility] Comment on above: Performed By: #### L AB61 ####[facility] (BEAKER)[address] [place] [address] NURSNOTEon 01-02-2025 NURSNOTE T-9=0253, at this ti me VS taken, IV [...] pt up to BR and released. Normal [facility] POTASSIUMon 01-02-2025 Potassium [Moles/Vol] 3.9 mmol/L Normal 3.5-5.1 [facility] Comment on above: Performed By: #### L AB114 ####[facility] (BEAKER)[address] [place] [address] Potassium [Moles/Vol] 4.0 mmol/L Normal 3.5-5.1 [facility] Comment on above: Performed By: #### L AB114 ####[facility] (BEAKER)[address] [place] [address] RENIN ACTIVITYon 01-02-2025 RENIN ACTIVITY <0.1 Normal [facility] Comment on above: Result Comment: INTE RPRETIVE INFORMATION: Renin Activity Adult, Normal sodium diet: Supine ................. 0.2-1.6 ng/mL/hr Upright ................ 0.5-4.0 ng/mL/hr Children, Normal sodium diet, Supine: [place] (1-7 days) ..... 2.0-35.0 ng/mL/hr Cord blood [...] developed and its performance characteristics determined by [facility]. It has not been cleared or approved by the US Food and Drug Administration. This test was performed in a CLIA certified laboratory and is intended for clinical purposes. Performed By: [facility] [address] [place] [address] Production Floater: Navneet Simeon MD, PhD CLIA Number: [id number] Performed By: #### L AB532 ####[facility] ([facility])[address] [place] [address] RENIN ACTIVITY <0.1 Normal [facility] Comment on above: Result Comment: INTE RPRETIVE INFORMATION: Renin Activity Adult, Normal sodium diet: Supine ................. 0.2-1.6 ng/mL/hr Upright ................ 0.5-4.0 ng/mL/hr Children, Normal sodium diet, Supine: [place] (1-7 days) ..... 2.0-35.0 ng/mL/hr Cord blood [...] developed and its performance characteristics determined by [facility]. It has not been cleared or approved by the US Food and Drug Administration. This test was performed in a CLIA certified laboratory and is intended for clinical purposes. Performed By: [facility] [address] [place] [address] Production Floater: Navneet Simeon MD, PhD [place] Number: [id number] Performed By: #### L AB532 ####[facility] ([facility] [place] [address] Orders Onlyon 01-01-2025 Orders Only [id number] Rohan,Aby S 1965 F Date Provider Department Center 01/01/2025 1572-RAMU PERRIN [facility] 2A Second Fl Family History Problem Relation Age of Onset Lung cancer Mother No Known Problems Father Lung cancer Sister Family Status - Relation Status Age at Mother Father Sister Normal [facility] Orders Only [id number] Strababebe,Aby S 1965 F Date Provider Department Center 01/01/2025 [id number]-GIBSON GARCIA [facility] 2A Second Fl Family History Problem Relation Age of Onset Lung cancer Mother No Known Problems Father Lung cancer Sister Family Status - Relation Status Age at Mother Father Sister Normal [facility] Orders Onlyon 12-26-2024 Orders Only [id number] Strausbaugh,Aby S 1965 F Date Provider Department Center 12/26/2024 1883-USHA DURON [facility] 2A Second Fl Family History Problem Relation Age of Onset Lung cancer Mother No Known Problems Father Lung cancer Sister Family Status - Relation Status Age at Mother Father Sister Normal [facility] Orders Only [id number] Strausbaugh,Aby S 1965 F Date Provider Department Center 12/26/2024 1572-RAMU PERRIN [facility] 2A Second Fl Family History Problem Relation Age of Onset Lung cancer Mother No Known Problems Father Lung cancer Sister Family Status - Relation Status Age at Mother Father Sister Normal [facility] Orders Only [id number] Strausbaugh,Ayb S 1965 F Date Provider Department Center 12/26/2024 1623-DAX MONTERO [facility] 2A Second Fl Family History Problem Relation Age of Onset Lung cancer Mother No Known Problems Father Lung cancer Sister Family Status - Relation Status Age at Mother Father Sister Normal [facility] 36on 12-25-2024 36 Patient has not hear d from the [facility] about scheduling this, she is going to reach out to them directly, but could someone reach out to the [facility] about what's going on? Normal [facility] Orders Onlyon 12-25-2024 Orders Only [id number] Strausbaugh,Aby S 1965 F Date Provider Department Center 12/25/2024 190-JOSE PRICE D[facility] INF DCC Family History Problem Relation Age of Onset Lung cancer Mother No Known Problems Father Lung cancer Sister Family Status - Relation Status Age at Mother Father Sister Normal [facility] Orders Only [id number] Strausbaugh,Aby S 1965 F Date Provider Department Center 12/25/2024 1759-GIBSON GARCIA [facility] 2A Second Fl Family History Problem Relation Age of Onset Lung cancer Mother No Known Problems Father Lung cancer Sister Family Status - Relation Status Age at Mother Father Sister Normal [facility] 36on 12-12-2024 36 Antonio Benjamín signed the orders for saline infusion test back on Oct 12 (its a Therapy Plan) Can we call the [facility] and ask what more do they need to get the patient scheduled thanks [facility] 36on 12-08-2024 36 Patient had not hear d from the [facility] about scheduling a Saline Infusion Test, when I look into the chart, I cannot find any orders [facility] Telephoneon 12-08-2024 Telephone [id number] Aby Madrigal 1965 F Date Provider Department Center 12/08/2024 00501-DRQEHFENG [facility] Family History Problem Relation Age of Onset Lung cancer Mother No Known Problems Father Lung cancer Sister Family Status - Relation Status Age at Mother Father Sister [facility] Abstracton 11-21-2024 Abstract [id number] Aby Madrigal 1965 F Date Provider Department Center 11/21/202450167-JUSFXF-OXUDARA [facility] ONC DCC Family History Problem Relation Age of Onset Lung cancer Mother No Known Problems Father Lung cancer Sister Family Status - Relation Status Age at Mother Father Sister [facility] CT CHEST WO IV CONTRASTon [...] Marlon Green MD. 5 Invalid Interpretation Code [facility] Office Visiton 10-26-2024 Follow-up visit [id number] Aby Madrigal 1965 F Date Provider Department Center 10/26/2024 383-RICHA VIRAMONTES DCC ONC DCC Family History Problem Relation Age of Onset Lung cancer Mother No Known Problems Father Lung cancer Sister Family Status - Relation Status Age at Mother Father Sister Level of Service:94783 MO OFFICE/OUTPATIENT ESTABLISHED SF MDM 10 MIN (GC) Reason for Visit and Comments: Follow-up [[id number]] - F/U to review CT scan that was done today. Normal [facility] 29on 10-03-2024 29 Addended by: FENG CHRISTIE on: 10/12/2024 10:02 AM Modules accepted: Orders Normal [facility] 37on 10-03-2024 37 It [...] called a saline infusion test at the [facility] they will be in contact with you likely within the next week. This is a 2-hour test in which we infused saline 2 L and assess any changes in your aldosterone level. This is in a monitored setting so you will not be alone. Normal [facility] Follow-Upon 10-03-2024 Follow-Up [id number] Aby Madrigal 1965 F Date Provider Department Center 10/03/2024 60193-MEERN, [facility] Family History Problem Relation Age of Onset Lung cancer Mother No Known Problems Father Lung cancer Sister Family Status - Relation Status Age at Mother Father Sister Level of Service:59523 MO OFFICE/OUTPATIENT ESTABLISHED MOD MDM 30 MIN Reason for Visit and Comments: Follow-up [[id number]] Normal [facility] Office Visiton 09-04-2024 Follow-up visit [id number] Aby Madrigal 1965 F Date Provider Department Center 09/04/2024 GOMEZ KENDALL RIAZ [place] Family History Problem Relation Age of Onset Lung cancer Mother No Known Problems Father Lung cancer Sister Family Status - Relation Status Age at Mother Father Sister Level of Service:55011 MO OFFICE/OUTPATIENT ESTABLISHED MOD MDM 30 MIN Normal [facility] ALDOSTERONEon 08-29-2024 ALDOSTERONE (NG/DL) IN SER/PLAS 13.0 ng/dL Normal [facility] Comment on above: [...] reference intervals for this test in the [employer] Test Directory ([employer]). Performed By: [facility] [address] [place] [address] Production Floater: Navneet Simeon MD, PhD CLIA Number: [id number] Performed By: #### L [id number] ####[facility] ([facility])[address] [place] [address] Ron 08-29-2024 ALT [Catalytic activity/Vol] 25 U/L Normal 7-52 [facility] Comment on above: Performed By: #### L [id number] ####[facility] ([facility])[address] [place] [address] Riki 08-29-2024 AST [Catalytic activity/Vol] 21 U/L Normal 13-39 [facility] Comment on above: Performed By: #### L [id number] ####[facility] ([facility] [place] [address] BASIC METABOLIC PANELon 10-0 Anion gap [Moles/Vol] 12 mmol/L Normal 7-20 [facility] Comment on above: Performed By: #### L [id number] ####[facility] ([facility])[address] [facility] [address] Calcium [Mass/Vol] 9.3 mg/dL Normal 8.6-10.3 [facility] Comment on above: Performed By: #### L [id number] ####[facility] ([facility])[address] [facility] [address] Chloride [Moles/Vol] 105 mmol/L Normal 98-107 [facility] Comment on above: Performed By: #### L [id number] ####[facility] ([facility])[address] [facility] [address] CO2 [Moles/Vol] 28 mmol/L Normal 21-31 [facility] Comment on above: Performed By: #### L [id number] ####[facility] ([facility])[address] [facility] [address] Creatinine [Mass/Vol] 0.95 mg/dL Normal 0.60-1.20 [facility] Comment on above: Performed By: #### L [id number] ####[facility] ([facility])[address] [facility] [address] GLOMERULAR FILTRATION RATE ML/MIN/1.73 SQ M.PREDICTED 68.6 mL/min/1.73m*2 Normal >60.0 [facility] Comment on above: Result Comment: The [facility]???s estimated glomerular filtration rate [...] of individuals. Performed By: #### L [id number] ####[facility] (BEAKER)[address] [place] [address] Glucose [Mass/Vol] 99 mg/dL Normal 70-100 [facility] Comment on above: Performed By: #### L [id number] ####[facility] (BEAKER)[address] [place] [address] Potassium [Moles/Vol] 3.6 mmol/L Normal 3.5-5.1 [facility] Comment on above: Performed By: #### L [id number] ####[facility] ([facility] [place] [address] Sodium [Moles/Vol] 141 mmol/L Normal 136-145 [facility] Comment on above: Performed By: #### L [id number] ####[facility] ([facility] [place] [address] Urea nitrogen [Mass/Vol] 19 mg/dL Normal 7-25 [facility] Comment on above: Performed By: #### L [id number] ####[facility] ([facility])[address] [place] [address] UREA NITROGEN/CREATININE (MASS RATIO) IN SER/PLAS 20.0 Normal [facility] Comment on above: Performed By: #### L [id number] ####[facility] ([facility] [place] [address] CORTISOLon 08-29-2024 CORTISOL (UG/DL) IN SER/PLAS 6.1 ug/dL Normal 0-9 [facility] Comment on above: Performed By: #### L [id number] ####[facility] ([facility] [place] [address] CT ABDOMEN PELVIS W AND WO I [...] Electronically signed: Marybeth Lane Invalid Interpretation Code [facility] DEXAMETHASONE LEVELon 2023 DEXAMETHASONE <50.0 Normal [facility] Comment on above: Order [...] developed and its performance characteristics determined by [facility]. It has not been cleared or approved by the US Food and Drug Administration. This test was performed in a CLIA certified laboratory and is intended for clinical purposes. Performed By: [facility] [address] [place] [address] Production Floater: Navneet Simeon MD, PhD CLIA Number: [id number] Performed By: #### L [id number] ####[facility] (BEAKER)[address] [place] [address] LIPID PANELon 08-29-2024 CHOL/HDL 2.4 mg/dL Normal [facility] Comment on above: Performed By: #### L [id number] ####[facility] (BEAKER)[address] [place] [address] Cholesterol [Mass/Vol] 80 mg/dL Low 120-200 [facility] Comment on above: Performed By: #### L [id number] ####[facility] ([facility] [place] [address] Magnesium [Mass/Vol] 96 mg/dL Normal 40-149 [facility] Comment on above: Result Comment: TRIG LYCERIDE REFERENCE RANGE: 20 YEARS AND OLDER CARDIOVASCULAR RISK LESS THAN 150 mg/dL LOW RISK 150 TO 199 mg/dL BORDERLINE RISK 200 mg/dL AND GREATER HIGH RISK Performed By: #### L [id number] ####[facility] ([facility])[address] [place] [address] Magnesium [Mass/Vol] 28 mg/dL Normal 0-160 [facility] Comment on above: Performed By: #### L [id number] ####[facility] ([facility])[address] [place] [address] Magnesium [Mass/Vol] 33 mg/dL Normal 23-92 [facility] Comment on above: Performed By: #### L [id number] ####[facility] ([facility])[address] [place] [address] NON HDL CHOL. (LDL+VLDL) 47 Normal [facility] Comment on above: Performed By: #### L [id number] ####[facility] ([facility] [place] [address] TOTAL VLDL-C 19 mg/dL Normal 0-40 [facility] Comment on above: Performed By: #### L [id number] ####[facility] ([facility])[address] [place] [address] Labon 08-29-2024 Lab [id number] Aby Madrigal 1965 F Date Provider Department Center 08/29/2024 2245-[facility] OPD LAB RESOURCE [facility] OPD [facility] C Family History Problem Relation Age of Onset Lung cancer Mother No Known Problems Father Lung cancer Sister Family Status - Relation Status Age at Mother Father Sister Normal [facility] RENIN ACTIVITYon 08-29-2024 RENIN ACTIVITY <0.1 Normal [facility] Comment on above: [...] developed and its performance characteristics determined by [facility]. It has not been cleared or approved by the US Food and Drug Administration. This test was performed in a CLIA certified laboratory and is intended for clinical purposes. Performed By: [facility] [address] [place] [address] Production Floater: Navneet Simeon MD, PhD CLIA Number: [id number] Performed By: #### L [id number] ####[facility] ([facility])[address] [place] [address] 36on 08-10-2024 36 Updated patient on Nodify blood test results and plan for f/u CT and appt scheduled for 10/26/24. Normal [facility] Letter (Out)on 08-09-2024 Letter (Out) [id number] Strausbaugh,Aby S 1965 F Date Provider Department Center 08/09/2024 None-None [facility] ADMIT None Family History Problem Relation Age of Onset Lung cancer Mother No Known Problems Father Lung cancer Sister Family Status - Relation Status Age at Mother Father Sister [facility] 36on 08-08-2024 36 Called patient [...] 03 She thanked me for the call [facility] Orders Onlyon 08-08-2024 Orders Only [id number] Strausbaugh,Aby S 1965 F Date Provider Department Center 08/08/2024 383-RICHA VIRAMONTES DCC ONC DCC Family History Problem Relation Age of Onset Lung cancer Mother No Known Problems Father Lung cancer Sister Family Status - Relation Status Age at Mother Father Sister Normal [facility] Telephoneon 08-08-2024 Telephone [id number] Strausbaugh,Aby S 1965 F Date Provider Department Center 08/08/2024 [id number], [facility] Family History Problem Relation Age of Onset Lung cancer Mother No Known Problems Father Lung cancer Sister Family Status - Relation Status Age at Mother Father Sister Normal [facility] Telemedicineon 07-20-2024 Telemedicine [id number] Strausbaugh,Aby S 1965 F Date Provider Department Center 07/20/2024 Julio CCORTNEY RICHA [facility] ONC DCC Family History Problem Relation Age of Onset Lung cancer Mother No Known Problems Father Lung cancer Sister Family Status - Relation Status Age at Mother Father Sister Level of Service:27191 [place] PHYS/QHP TELEPHONE EVALUATION 21-30 MIN (GC) Reason for Visit and Comments: New Patient [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 CHEST 04-21-24- PET 06-21-24 Films requested 07-18-24 HAVING HARD TIME GETTING FILMS FROM [facility] AGAIN. Ginny at [facility] ([phone] direct line) is working on sending them. CHECK [facility] FOR FILMS PLEASE Normal [facility] 37on 07-18-2024 37 It [...] lab work done at one of these [facility] Lab Sites The results will then come straight to me I appreciate it [facility] [address], [place] Hours Wednesday - Wednesday 8 AM - 4PM (Closed 12 - 12:30 PM daily) Phone: [facility] [address] [place] Hours: Wednesday - Wednesday 6 AM - 5 PM day: 7 AM - 2 PM Phone: [address] [place] Hours: Wednesday - Wednesday 7 AM - 3:30 PM Phone: [facility] [address] [place] Hours: Wednesday - Wednesday 7 AM - 5:30 PM Phone: [facility] [address] [place] Hours: Wednesday - Wednesday 8 AM - 4:30 PM Phone: [facility] EDNURSon 07-18-2024 EDNURS ADR and relevant inf o reported to [facility] in pharmacy d/t safety net being down. Viet Kelly RN 07/18/24 1139 [facility] EDNURS SENT FROM MD OFFICE RE: LOW BP; RECENT DC FROM [facility] FOR SAME [facility] EDPROVon 07-18-2024 EDPROV HPI Chief [...] new meds yesterday. 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 Normal [facility] Office Visiton 07-18-2024 Follow-up visit [id number] Aby Madrigal 1965 Provider Department [place] 07/18/2024 [id number] [facility] Family History Problem Relation Age of Onset Lung cancer Mother No Known Problems Father Lung cancer Sister Family Status - Relation Status Age at Mother Father Sister Level of Service:63365 MO OFFICE/OUTPATIENT NEW MODERATE MDM 45 MINUTES Reason for Visit and Comments: Nodules [Other] Normal [facility] Follow-up visit [id number] Aby Madrigal 1965 Provider Department [place] 07/18/[id number] [facility] Family History Problem Relation Age of Onset Lung cancer Mother No Known Problems Father Lung cancer Sister Family Status - Relation Status Age at Mother Father Sister Level of Service:NOCHG [place]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 I am calling you to [...] No Patient Name Aby Madrigal Date 07/13/24 [facility] Telephoneon 07-13-2024 Telephone [id number] Aby Madrigal 1965 F Date Provider Department Center 07/13/2024 Adela-GINYN GARCIA [facility] Family History Problem Relation Age of Onset Lung cancer Mother No Known Problems Father Lung cancer Sister Family Status - Relation Status Age at Mother Father Sister Reason for Visit and Comments: Hospital Follow-up [832] Normal [facility] 30on 07-12-2024 30 The [...] to address these barriers include . Normal [facility] ANTI-XA (HEPARIN LEVEL)on HEPARIN UNFRACTIONATED (U/ML) IN PPP BY CHROMOGENIC METHOD 0.60 IU/mL Normal 0.3-0.7 [facility] Comment on above: Order Comment: Check anti-Xa level every 6 hours while on heparin infusion, or per protocol. Result Comment: Selma roxaban and Apixaban will interfere with the anti Xa assay used to monitor UFH and LMWH. Performed By: #### L [id number] ####[facility] (BEAKER)[address] [place] [address] BASIC METABOLIC PANELon 06-23 Anion gap [Moles/Vol] 10 mmol/L Normal 7-20 [facility] Comment on above: Performed By: #### L [id number] ####[facility] (BEAKER)[address] [place] [address] Calcium [Mass/Vol] 8.8 mg/dL Normal 8.6-10.3 [facility] Comment on above: Performed By: #### L [id number] ####[facility] (BEAKER)[address] [place] [address] Chloride [Moles/Vol] 108 mmol/L High 98-107 [facility] Comment on above: Performed By: #### L [id number] ####[facility] ([facility])[address] [place] [address] CO2 [Moles/Vol] 27 mmol/L Normal 21-31 [facility] Comment on above: Performed By: #### L [id number] ####[facility] ([facility])[address] [place] [address] Creatinine [Mass/Vol] 0.89 mg/dL Normal 0.60-1.20 [facility] Comment on above: Performed By: #### L [id number] ####[facility] ([facility])[address] [place] [address] GLOMERULAR FILTRATION RATE ML/MIN/1.73 SQ M.PREDICTED 74.2 mL/min/1.73m*2 Normal >60.0 [facility] Comment on above: Result Comment: [facility]???s estimated glomerular filtration rate [...] of individuals. Performed By: #### L [id number] ####[facility] ([facility] [place] [address] Glucose [Mass/Vol] 109 mg/dL High 70-100 [facility] Comment on above: Performed By: #### L [id number] ####[facility] ([facility] [place] [address] Potassium [Moles/Vol] 3.4 mmol/L Low 3.5-5.1 [facility] Comment on above: Performed By: #### L [id number] ####[facility] ([facility] [place] [address] Sodium [Moles/Vol] 142 mmol/L Normal 136-145 [facility] Comment on above: Performed By: #### L [id number] ####[facility] ([facility])[address] [place] [address] Urea nitrogen [Mass/Vol] 11 mg/dL Normal 7-25 [facility] Comment on above: Performed By: #### L [id number] ####[facility] ([facility])[address] [place] [address] UREA NITROGEN/CREATININE (MASS RATIO) IN SER/PLAS 12.4 Normal [facility] Comment on above: Performed By: #### L [id number] ####[facility] ([facility])[address] [place] [address] CBC WITH AUTO DIFFERENTIALon 07-12-2024 Basophils (Bld) [#/Vol] 0.04 10*3/uL Normal 0.00-0.20 [facility] Comment on above: Performed By: #### L [id number] ####[facility] ([facility])[address] [place] [address] Basophils/100 WBC (Bld) 0.6 % Normal 0.0-1.0 [facility] Comment on above: Performed By: #### L [id number] ####[facility] ([facility])[address] [place] [address] Eosinophils (Bld) [#/Vol] 0.22 10*3/uL Normal 0.00-0.50 [facility] Comment on above: Performed By: #### L [id number] ####[facility] ([facility] [place] [address] Eosinophils/100 WBC (Bld) 3.5 % Normal 0.0-6.0 [facility] Comment on above: Performed By: #### L [id number] ####[facility] ([facility] [place] [address] Erythrocyte distribution width (RBC) [Ratio] 14.5 % Normal 11.5-15.0 [facility] Comment on above: Performed By: #### L [id number] ####[facility] (BEAKER)[address] [place] [address] ERYTHROCYTE MEAN CORPUSCULAR HEMOGLOBIN CONCENTRATION (G/DL) BY AUTOMATED 32.7 g/dL Normal 32.0-35.0 [facility] Comment on above: Performed By: #### L [id number] ####[facility] (BEAKER)[address] [place] [address] Hematocrit (Bld) [Volume fraction] 34.2 % Low 36.0-48.0 [facility] Comment on above: Performed By: #### L [id number] ####[facility] (BEAKER)[address] [place] [address] Hemoglobin (Bld) [Mass/Vol] 11.2 g/dL Low 12.0-15.0 [facility] Comment on above: Performed By: #### L [id number] ####[facility] (BEAKER)[address] [place] [address] Immature granulocytes (Bld) [#/Vol] 0.01 10*3/uL Normal 0.00-0.20 [facility] Comment on above: Performed By: #### L [id number] ####[facility] (BEAKER)[address] [place] [address] Immature granulocytes/100 WBC (Bld) 0.2 % Normal 0.0-1.0 [facility] Comment on above: Performed By: #### L [id number] ####[facility] (BEAKER)[address] [place] [address] Lymphocytes (Bld) [#/Vol] 2.37 10*3/uL Normal 1.20-4.00 [facility] Comment on above: Performed By: #### L [id number] ####[facility] (BEAKER)[address] [place] [address] Lymphocytes/100 WBC (Bld) 37.8 % Normal 20.0-45.0 [facility] Comment on above: Performed By: #### L [id number] ####[facility] (BEAKER)[address] [place] [address] MCH (RBC) [Entitic mass] 27.4 pg Normal 27.0-33.0 [facility] Comment on above: Performed By: #### L [id number] ####[facility] ([facility] [place] [address] MCV (RBC) [Entitic vol] 83.6 fL Normal 82.0-98.0 [facility] Comment on above: Performed By: #### L [id number] ####[facility] ([facility] [place] [address] Monocytes (Bld) [#/Vol] 0.43 10*3/uL Normal 0.10-1.00 [facility] Comment on above: Performed By: #### L [id number] ####[facility] ([facility] [place] [address] Monocytes/100 WBC (Bld) 6.9 % Normal 5.0-12.0 [facility] Comment on above: Performed By: #### L [id number] ####[facility] (BEAKER)[address] [place] [address] Neutrophils (Bld) [#/Vol] 3.20 10*3/uL Normal 1.60-7.60 [facility] Comment on above: Performed By: #### L [id number] ####[facility] (BEAKER)[address] [place] [address] Neutrophils/100 WBC (Bld) 51.0 % Normal 40.0-72.0 [facility] Comment on above: Performed By: #### L [id number] ####[facility] (BEAKER)[address] [place] [address] NRBC (PER 100 WBCS) BY AUTOMATED COUNT 0.0 % Normal 0 [facility] Comment on above: Performed By: #### L [id number] ####[facility] (BEAKER)[address] [place] [address] PLATELETS (10*3/UL) IN BLOOD AUTOMATED COUNT 223 10*3/uL Normal 150-400 [facility] Comment on above: Performed By: #### L [id number] ####[facility] ([facility])[address] [place] [address] RBC (Bld) [#/Vol] 4.09 10*6/uL Normal 3.80-5.00 [facility] Comment on above: Performed By: #### L [id number] ####[facility] ([facility])[address] [place] [address] WBC (Bld) [#/Vol] 6.27 10*3/uL Normal 4.00-10.60 [facility] Comment on above: Performed By: #### L [id number] ####[facility] ([facility])[address] [place] [address] MAGNESIUMon 07-12-2024 Magnesium [Mass/Vol] 1.7 mg/dL Low 1.9-2.7 [facility] Comment on above: Performed By: #### L [id number] ####[facility] ([facility])[address] [place] [address] POCT GLUCOSE METER UNSOLICIT ED RESULTSon 07-12-2024 Glucose [Mass/Vol] 102 mg/dL Normal 70-105 [facility] Comment on above: Order Comment: Waive d Testing in the ED is performed under the ED CLIA certificate #[id number]. Result Comment: shod [email or web address] Performed By: #### L [id number] ####[facility] ([facility])[address] [place] [address] TROPONIN Ion 07-12-2024 Troponin I.cardiac [Mass/Vol] 0.01 ng/mL Normal 0.00-0.04 [facility] Comment on above: Performed By: #### L [id number] ####[facility] ([facility])[address] [place] [address] 30on 07-11-2024 30 The patient is Moderately [...] and maintained or improved Outcome: Progressing Normal [facility] 30 The patient is [...] to address these barriers include . Normal [facility] ALDOSTERONEon 07-11-2024 ALDOSTERONE (NG/DL) IN SER/PLAS 4.9 ng/dL Normal [facility] Comment on above: [...] reference intervals for this test in the [facility] [facility] Test Directory ([employer]). Performed By: [facility] [address] [place] [address] Production Floater: Navneet Simeon MD, PhD CLIA Number: [id number] Performed By: #### L [id number] ####[facility] (BEAKER)[address] [place] [address] ANTI-XA (HEPARIN LEVEL)on HEPARIN UNFRACTIONATED (U/ML) IN PPP BY CHROMOGENIC METHOD 0.42 IU/mL Normal 0.3-0.7 [facility] Comment on above: Order Comment: Check anti-Xa level every 6 hours while on heparin infusion, or per protocol. Result Comment: Selma roxaban and Apixaban will interfere with the anti Xa assay used to monitor UFH and LMWH. Performed By: #### L [id number] ####[facility] ([facility])[address] [place] [address] HEPARIN UNFRACTIONATED (U/ML) IN PPP BY CHROMOGENIC METHOD 0.20 IU/mL Low 0.3-0.7 [facility] Comment on above: Order Comment: Check anti-Xa level every 6 hours while on heparin infusion, or per protocol. Result Comment: Radha roxaban and Apixaban will interfere with the anti Xa assay used to monitor UFH and LMWH. Performed By: #### L [id number] ####[facility] ([facility])[address] [place] [address] APTTon 07-11-2024 ACTIVATED PARTIAL THROMBOPLASTIN TIME IN PPP BY COAGULATION ASSAY 43.0 Seconds High 25.0-35.0 [facility] Comment on above: Result Comment: Clin ical significance of the APTT is questionable in the presence of heparin. Performed By: #### L [id number] ####[facility] ([facility])[address] [place] [address] BASIC METABOLIC PANELon 06-23 Anion gap [Moles/Vol] 9 mmol/L Normal 7-20 [facility] Comment on above: Performed By: #### L [id number] ####[facility] ([facility])[address] [place] [address] Calcium [Mass/Vol] 8.8 mg/dL Normal 8.6-10.3 [facility] Comment on above: Performed By: #### L [id number] ####[facility] ([facility])[address] [place] [address] Chloride [Moles/Vol] 108 mmol/L High 98-107 [facility] Comment on above: Performed By: #### L [id number] ####[facility] ([facility])[address] [place] [address] CO2 [Moles/Vol] 28 mmol/L Normal 21-31 [facility] Comment on above: Performed By: #### L [id number] ####[facility] ([facility])[address] [place] [address] Creatinine [Mass/Vol] 1.09 mg/dL Normal 0.60-1.20 [facility] Comment on above: Performed By: #### L [id number] ####[facility] ([facility])[address] [place] [address] GLOMERULAR FILTRATION RATE ML/MIN/1.73 SQ M.PREDICTED 58.2 mL/min/1.73m*2 Low >60.0 [facility] Comment on above: Result Comment: [facility]???s estimated glomerular filtration rate [...] of individuals. Performed By: #### L [id number] ####[facility] ([facility])[address] [place] [address] Glucose [Mass/Vol] 113 mg/dL High 70-100 [facility] Comment on above: Performed By: #### L [id number] ####[facility] ([facility])[address] [facility] [address] Potassium [Moles/Vol] 3.4 mmol/L Low 3.5-5.1 [facility] Comment on above: Performed By: #### L [id number] ####[facility] ([facility])[address] [facility] [address] Sodium [Moles/Vol] 142 mmol/L Normal 136-145 [facility] Comment on above: Performed By: #### L [id number] ####[facility] ([facility])[address] [place] [address] Urea nitrogen [Mass/Vol] 14 mg/dL Normal 7-25 [facility] Comment on above: Performed By: #### L [id number] ####[facility] [place] [address] UREA NITROGEN/CREATININE (MASS RATIO) IN SER/PLAS 12.8 Normal [facility] Comment on above: Performed By: #### L [id number] ####[facility] ([facility])[address] [place] [address] CBC WITH AUTO DIFFERENTIALon 07-11-2024 Basophils (Bld) [#/Vol] 0.04 10*3/uL Normal 0.00-0.20 [facility] Comment on above: Performed By: #### L [id number] ####[facility] ([facility])[address] [place] [address] Basophils/100 WBC (Bld) 0.6 % Normal 0.0-1.0 [facility] Comment on above: Performed By: #### L [id number] ####[facility] ([facility])[address] [place] [address] Eosinophils (Bld) [#/Vol] 0.16 10*3/uL Normal 0.00-0.50 [facility] Comment on above: Performed By: #### L [id number] ####[facility] [place] [address] Eosinophils/100 WBC (Bld) 2.2 % Normal 0.0-6.0 [facility] Comment on above: Performed By: #### L [id number] ####[facility] ([facility])[address] [place] [address] Erythrocyte distribution width (RBC) [Ratio] 14.6 % Normal 11.5-15.0 [facility] Comment on above: Performed By: #### L [id number] ####[facility] ([facility])[address] [place] [address] ERYTHROCYTE MEAN CORPUSCULAR HEMOGLOBIN CONCENTRATION (G/DL) BY AUTOMATED 32.0 g/dL Normal 32.0-35.0 [facility] Comment on above: Performed By: #### L [id number] ####[facility] ([facility])[address] [place] [address] Hematocrit (Bld) [Volume fraction] 36.2 % Normal 36.0-48.0 [facility] Comment on above: Performed By: #### L [id number] ####[facility] ([facility])[address] [place] [address] Hemoglobin (Bld) [Mass/Vol] 11.6 g/dL Low 12.0-15.0 [facility] Comment on above: Performed By: #### L [id number] ####[facility] ([facility])[address] [place] [address] Immature granulocytes (Bld) [#/Vol] 0.02 10*3/uL Normal 0.00-0.20 [facility] Comment on above: Performed By: #### L [id number] ####[facility] ([facility])[address] [place] [address] Immature granulocytes/100 WBC (Bld) 0.3 % Normal 0.0-1.0 [facility] Comment on above: Performed By: #### L [id number] ####[facility] ([facility])[address] [place] [address] Lymphocytes (Bld) [#/Vol] 2.34 10*3/uL Normal 1.20-4.00 [facility] Comment on above: Performed By: #### L [id number] ####[facility] ([facility])[address] [place] [address] Lymphocytes/100 WBC (Bld) 32.6 % Normal 20.0-45.0 [facility] Comment on above: Performed By: #### L [id number] ####[facility] ([facility])[address] [place] [address] MCH (RBC) [Entitic mass] 27.2 pg Normal 27.0-33.0 [facility] Comment on above: Performed By: #### L [id number] ####[facility] ([facility] [place] [address] MCV (RBC) [Entitic vol] 85.0 fL Normal 82.0-98.0 [facility] Comment on above: Performed By: #### L [id number] ####[facility] ([facility])[address] [place] [address] Monocytes (Bld) [#/Vol] 0.49 10*3/uL Normal 0.10-1.00 [facility] Comment on above: Performed By: #### L [id number] ####[facility] ([facility])[address] [place] [address] Monocytes/100 WBC (Bld) 6.8 % Normal 5.0-12.0 [facility] Comment on above: Performed By: #### L [id number] ####[facility] ([facility])[address] [place] [address] Neutrophils (Bld) [#/Vol] 4.13 10*3/uL Normal 1.60-7.60 [facility] Comment on above: Performed By: #### L [id number] ####[facility] ([facility] [place] [address] Neutrophils/100 WBC (Bld) 57.5 % Normal 40.0-72.0 [facility] Comment on above: Performed By: #### L [id number] ####[facility] ([facility] [place] [address] NRBC (PER 100 WBCS) BY AUTOMATED COUNT 0.0 % Normal 0 [facility] Comment on above: Performed By: #### L [id number] ####[facility] ([facility])[address] [place] [address] PLATELETS (10*3/UL) IN BLOOD AUTOMATED COUNT 245 10*3/uL Normal 150-400 [facility] Comment on above: Performed By: #### L [id number] ####[facility] ([facility])[address] [place] [address] RBC (Bld) [#/Vol] 4.26 10*6/uL Normal 3.80-5.00 [facility] Comment on above: Performed By: #### L [id number] ####[facility] ([facility])[address] [place], [place] [address] WBC (Bld) [#/Vol] 7.18 10*3/uL Normal 4.00-10.60 [facility] Comment on above: Performed By: #### L [id number] ####[facility] ([facility])[address] [place] [address] CONSULTon 07-11-2024 CONSULT -- Attestation signed by [...] Brown is the endocrine surgeon in the [place] area that would be most appropriate and [...] with plan for outpatient follow up with [facility]inology Meseret Mac MD Cardiology Consult Note Reason for Consult: Chest pain HPI: Aby Madrigal is a 59 y.o. female patient is presenting as a transfer from [facility] for the evaluation of chest [...] medical history of Abnormal ECG, Diabetes mellitus ([facility]), Hyperlipidemia, Hypertension, Obstructive sleep apnea, Panic attacks, and Stroke ([facility]). Surgical History She has a past [...] Value Ventricular Rate 56 Atrial Rate 56 MO Interval 180 QRS DURATION 94 QT Interval 430 QTC (more content not included)... Normal [facility] EDPROVon 07-11-2024 EDPROV HPI Chief Complaint Patient presents with Chest Pain Patient had heart cath with 1 stent placed approx 10 days ago at this hospital, developed CP last evening Initial assessment completed by Dr. Jacosbon at 1036. Aby Madrigal is a 59 y.o. female presenting to the ED with a chief complaint of chest pain. Pt states she has chest pain that started last night at 1030pm. Pt states the chest pain is in the middle of her chest and radiates to where her gallbladder used to be. Pt states she was trasnfered here from [place] to be transferred to cardiology. Pt states she had a cardiac stent placed last week. She denies fever, coughing, vomiting, abdominal pain. She admits diarrhea. She felt better when given ativan and worse when she was given morphine. She has had her gallbladder removed. 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 Jacobson. Chief complaint chest pain Plan of Care: APTT, Troponin I, CBC, Protime-INR, BMP Attestation: Provider Statement SALVADOR: Provider Statement 2nd Scribe. By electronically signing this emergency patient record, the Emergency Physician/GENERAL HARDWARE SALESPERSON/PA-C attests that all entries made into the electronic medical record by the scribe prior to the Physician/GENERAL HARDWARE SALESPERSON/PA-C signature reflect an accurate accounting of the evaluation and care rendered by that Emergency Physician/GENERAL HARDWARE SALESPERSON/PA-C. The Emergency Physician/GENERAL HARDWARE SALESPERSON/PA-C assumes full responsibility for those entries. The Emergency Physician/GENERAL HARDWARE SALESPERSON/PA-C also attests that any patient testing or treatment that was instituted by nursing staff. Normal [facility] EDPROV HPI Chief Complaint [...] Pt states she was trasnfered here from [place] to be transferred to cardiology. Pt states she had a cardiac stent placed last week. She denies fever, coughing, vomiting, abdominal pain. She admits diarrhea. She felt better when given ativan and worse when she was given morphine. She has had her gallbladder removed. 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) Medical Decision Making Amount and/or Complexity of Data Reviewed Labs: ordered. Decision-making details documented in ED Course. ECG/medicine tests: ordered and independent interpretation performed. Decision-making details documented in ED Course. Risk Drug therapy requiring intensive monitoring for toxicity. Decision regarding hospitalization. Minor surgery with identified risk factors. I, Basilia diallo (more content not included)... Invalid Interpretation Code [facility] POCT GLUCOSE METER UNSOLICIT ED RESULTSon 07-11-2024 Glucose [Mass/Vol] 122 mg/dL High 70-105 [facility] Comment on above: Order Comment: Waive d Testing in the ED is performed under the ED CLIA certificate #[id number]. Result Comment: [email or web address] Performed By: #### L [id number] ####[facility] ([facility])[address] [place] [address] PROTIME-INRon 07-11-2024 INR IN PPP BY COAGULATION ASSAY 1.00 Normal 0.90-1.10 [facility] Comment on above: [...] CHEST 1995;108:[id number]. Performed By: #### L [id number] ####[facility] ([facility])[address] [place] [address] PROTHROMBIN TIME (PT) IN PPP BY COAGULATION ASSAY 13.2 Seconds Normal 12.3-14.8 [facility] Comment on above: Performed By: #### L [id number] ####[facility] ([facility])[address] [place] [address] RENIN ACTIVITYon 07-11-2024 RENIN ACTIVITY <0.1 Normal [facility] Comment on above: Result Comment: INTE RPRETIVE INFORMATION: Renin Activity Adult, Normal sodium diet: Supine ................. 0.2-1.6 ng/mL/hr Upright ................ 0.5-4.0 ng/mL/hr Children, Normal sodium diet, Supine: [place] (1-7 days) ..... 2.0-35.0 ng/mL/hr Cord blood [...] developed and its performance characteristics determined by [facility]. It has not been cleared or approved by the US Food and Drug Administration. This test was performed in a CLIA certified laboratory and is intended for clinical purposes. Performed By: [facility] [address] [place] [address] Production Floater: Navneet Simeon MD, PhD CLIA Number: [id number] Performed By: #### L [id number] ####[facility] ([employer] [place] [address] TROPONIN Ion 07-11-2024 Troponin I.cardiac [Mass/Vol] 0.01 ng/mL Normal 0.00-0.04 [facility] Comment on above: Performed By: #### L [id number] ####[facility] ([facility])[address] [place] [address] Office Visiton 07-10-2024 Follow-up visit [id number] Aby Madrigal 1965 F Date Provider Department Center 07/10/2024 [id number] MITCHELL [facility] Family History Problem Relation Age of Onset Lung cancer Mother No Known Problems Father Lung cancer Sister Family Status - Relation Status Age at Mother Father Sister Level of Service:72318 MO OFFICE/OUTPATIENT ESTABLISHED MOD MDM 30 MIN Reason for Visit and Comments: Coronary Artery Disease [187] Post-Cath [731] [facility] 36on 07-03-2024 36 Post Discharge Call Good morning, I am Ginny Garcia RN a lead nurse from [facility]. I am calling you to [...] No Patient Name Aby Madrigal Date 07/03/24 [facility] Telephoneon 07-03-2024 Telephone [id number] Aby Madrigal 1965 F Date Provider Department Center 07/03/2024 GINNY MALONEY [facility] Family History Problem Relation Age of Onset Lung cancer Mother No Known Problems Father Lung cancer Sister Family Status - Relation Status Age at Mother Father Sister Reason for Visit and Comments: Hospital Follow-up [832] [facility] 30on 07-01-2024 30 The patient [...] and maintained or improved Outcome: Progressing Normal [facility] BASIC METABOLIC PANELon 08 Anion gap [Moles/Vol] 14 mmol/L Normal 7-20 [facility] Comment on above: Performed By: #### L [id number] ####[facility] ([facility])[address] [place] [address] Calcium [Mass/Vol] 8.2 mg/dL Low 8.6-10.3 [facility] Comment on above: Performed By: #### L [id number] ####[facility] ([facility])[address] [place] [address] Chloride [Moles/Vol] 106 mmol/L Normal 98-107 [facility] Comment on above: Performed By: #### L [id number] ####[facility] ([facility])[address] [place] [address] CO2 [Moles/Vol] 25 mmol/L Normal 21-31 [facility] Comment on above: Performed By: #### L [id number] ####[facility] ([facility])[address] [place] [address] Creatinine [Mass/Vol] 0.91 mg/dL Normal 0.60-1.20 [facility] Comment on above: Performed By: #### L [id number] ####[facility] ([facility])[address] [place] [address] GLOMERULAR FILTRATION RATE ML/MIN/1.73 SQ M.PREDICTED 72.2 mL/min/1.73m*2 Normal >60.0 [facility] Comment on above: Result Comment: [facility]???s estimated glomerular filtration rate [...] of individuals. Performed By: #### L [id number] ####[facility] ([facility])[address] [place] [address] Glucose [Mass/Vol] 101 mg/dL High 70-100 [facility] Comment on above: Performed By: #### L [id number] ####[facility] ([facility])[address] [place] [address] Potassium [Moles/Vol] 3.5 mmol/L Normal 3.5-5.1 [facility] Comment on above: Performed By: #### L [id number] ####[facility] ([facility])[address] [place] [address] Sodium [Moles/Vol] 141 mmol/L Normal 136-145 [facility] Comment on above: Performed By: #### L [id number] ####[facility] ([facility])[address] [place] [address] Urea nitrogen [Mass/Vol] 13 mg/dL Normal 7-25 [facility] Comment on above: Performed By: #### L [id number] ####[facility] ([facility])[address] [place] [address] UREA NITROGEN/CREATININE (MASS RATIO) IN SER/PLAS 14.3 Normal [facility] Comment on above: Performed By: #### L [id number] ####[facility] ([facility])[address] [place] [address] CBCon 07-01-2024 Erythrocyte distribution width (RBC) [Ratio] 15.4 % High 11.5-15.0 [facility] Comment on above: Performed By: #### L [id number] ####[facility] ([facility])[address] [place] [address] ERYTHROCYTE MEAN CORPUSCULAR HEMOGLOBIN CONCENTRATION (G/DL) BY AUTOMATED 32.1 g/dL Normal 32.0-35.0 [facility] Comment on above: Performed By: #### L [id number] ####[facility] ([facility])[address] [place] [address] Hematocrit (Bld) [Volume fraction] 38.6 % Normal 36.0-48.0 [facility] Comment on above: Performed By: #### L [id number] ####[facility] [place] [address] Hemoglobin (Bld) [Mass/Vol] 12.4 g/dL Normal 12.0-15.0 [facility] Comment on above: Performed By: #### L [id number] ####[facility] ([facility])[address] [place] [address] MCH (RBC) [Entitic mass] 26.9 pg Low 27.0-33.0 [facility] Comment on above: Performed By: #### L [id number] ####[facility] ([facility])[address] [place] [address] MCV (RBC) [Entitic vol] 83.7 fL Normal 82.0-98.0 [facility] Comment on above: Performed By: #### L [id number] ####[facility] ([facility])[address] [place] [address] PLATELETS (10*3/UL) IN BLOOD AUTOMATED COUNT 238 10*3/uL Normal 150-400 [facility] Comment on above: Performed By: #### L [id number] ####[facility] ([facility])[address] [place] [address] RBC (Bld) [#/Vol] 4.61 10*6/uL Normal 3.80-5.00 [facility] Comment on above: Performed By: #### L [id number] ####[facility] ([facility])[address] [place] [address] WBC (Bld) [#/Vol] 7.04 10*3/uL Normal 4.00-10.60 [facility] Comment on above: Performed By: #### L [id number] ####[facility] ([facility])[address] [place] [address] LIPID PANELon 07-01-2024 CHOL/HDL 3.8 mg/dL Normal [facility] Comment on above: Performed By: #### L [id number] ####[facility] ([facility])[address] [place] [address] Cholesterol [Mass/Vol] 128 mg/dL Normal 120-200 [facility] Comment on above: Performed By: #### L [id number] ####[facility] ([facility])[address] [place] [address] Magnesium [Mass/Vol] 87 mg/dL Normal 40-149 [facility] Comment on above: Result Comment: TRIG LYCERIDE REFERENCE RANGE: 20 YEARS AND OLDER CARDIOVASCULAR RISK LESS THAN 150 mg/dL LOW RISK 150 TO 199 mg/dL BORDERLINE RISK 200 mg/dL AND GREATER HIGH RISK Performed By: #### L [id number] ####[facility] ([facility])[address] [place] [address] Magnesium [Mass/Vol] 77 mg/dL Normal 0-160 [facility] Comment on above: Performed By: #### L [id number] ####[facility] ([facility])[address] [place] [address] Magnesium [Mass/Vol] 34 mg/dL Normal 23-92 [facility] Comment on above: Performed By: #### L [id number] ####[facility] ([facility])[address] [place] [address] NON HDL CHOL. (LDL+VLDL) 94 Normal [facility] Comment on above: Performed By: #### L [id number] ####[facility] ([facility])[address] [place] [address] TOTAL VLDL-C 17 mg/dL Normal 0-40 [facility] Comment on above: Performed By: #### L [id number] ####[facility] ([facility]ER)[address] [place] [address] MAGNESIUMon 07-01-2024 Magnesium [Mass/Vol] 2.0 mg/dL Normal 1.9-2.7 [facility] Comment on above: Performed By: #### L [id number] ####[facility] ([facility])[address] [place] [address] NURSNOTEon 07-01-2024 NURSNOTE Discharge instructio ns given, reviewed, questions, answered, signed, copy received. Normal [facility] POCT GLUCOSE METER UNSOLICIT ED RESULTSon 07-01-2024 Glucose [Mass/Vol] 124 mg/dL High 70-105 [facility] Comment on above: Order Comment: Waive d Testing in the ED is performed under the ED CLIA certificate #[id number]. Result Comment: [email or web address] Performed By: #### L [id number] ####[facility] ([facility])[address] [place] [address] Glucose [Mass/Vol] 106 mg/dL High 70-105 [facility] Comment on above: Order Comment: Waive d Testing in the ED is performed under the ED CLIA certificate #[id number]. Result Comment: [email or web address] Performed By: #### L [id number] ####[facility] ([facility])[address] [place] [address] TROPONIN Ion 07-01-2024 Troponin I.cardiac [Mass/Vol] 0.09 ng/mL High 0.00-0.04 [facility] Comment on above: Performed By: #### L [id number] ####[facility] ([facility])[address] [place] [address] 30on 06-30-2024 30 The patient is Moderately Stable - Low risk of patient condition declining or worsening The patient's goals for the shift include comfort, rest The clinical goals for the shift include stable vitals, comfort Problem: Pain - Adult Goal: Verbalizes/displays adequate comfort level or baseline comfort level Outcome: Not Progressing Normal [facility] 30 Daily Case Managemen [...] PT Recommendations: OT Recommendations: New Consults: Normal [facility] 30 The patient is Moderately Stable - Low risk of patient condition declining or worsening The patient's goals for the shift include COMFORT The clinical goals for the shift include VSS Over the shift, the patient did not make progress toward the following goals. Barriers to progression include . Recommendations to address these barriers include . Normal [facility] ANTI-XA (HEPARIN LEVEL)on HEPARIN UNFRACTIONATED (U/ML) IN PPP BY CHROMOGENIC METHOD 0.64 IU/mL Normal 0.3-0.7 [facility] Comment on above: Order Comment: Check anti-Xa level every 6 hours while on heparin infusion, or per protocol. Result Comment: Selma roxaban and Apixaban will interfere with the anti Xa assay used to monitor UFH and LMWH. Performed By: #### L [id number] ####[facility] ([employer])[address] [place] [address] BASIC METABOLIC PANELon 08- Anion gap [Moles/Vol] 11 mmol/L Normal 7-20 [facility] Comment on above: Performed By: #### L AB15 ####[facility] ([employer])[address] [place] [address] Calcium [Mass/Vol] 8.3 mg/dL Low 8.6-10.3 [facility] Comment on above: Performed By: #### L AB15 ####[facility] (BE[facility]ER)[address] [place] [address] Chloride [Moles/Vol] 110 mmol/L High 98-107 [facility] Comment on above: Performed By: #### L AB15 ####[facility] (BE[facility]ER)[address] [place] [address] CO2 [Moles/Vol] 26 mmol/L Normal 21-31 [facility] Comment on above: Performed By: #### L AB15 ####[facility] ([facility] [place] [address] Creatinine [Mass/Vol] 0.81 mg/dL Normal 0.60-1.20 [facility] Comment on above: Performed By: #### L AB15 ####[facility] ([facility])[address] [place] [address] GLOMERULAR FILTRATION RATE ML/MIN/1.73 SQ M.PREDICTED 83.1 mL/min/1.73m*2 Normal >60.0 [facility] Comment on above: Result Comment: [facility]???s estimated glomerular filtration rate [...] of individuals. Performed By: #### L [id number] ####[facility] ([facility] [place] [address] Glucose [Mass/Vol] 110 mg/dL High 70-100 [facility] Comment on above: Performed By: #### L [id number] ####[facility] ([facility] [place] [address] Potassium [Moles/Vol] 3.7 mmol/L Normal 3.5-5.1 [facility] Comment on above: Performed By: #### L [id number] ####[facility] ([facility])[address] [address] Sodium [Moles/Vol] 143 mmol/L Normal 136-145 [facility] Comment on above: Performed By: #### L [id number] ####[facility] (BEAKER)[address] [address] Urea nitrogen [Mass/Vol] 10 mg/dL Normal 7-25 [facility] Comment on above: Performed By: #### L [id number] ####[facility] (BEAKER)[address] [place] [address] UREA NITROGEN/CREATININE (MASS RATIO) IN SER/PLAS 12.3 Normal [facility] Comment on above: Performed By: #### L [id number] ####[facility] (BE[facility])[address] [address] CBCon 06-30-2024 Erythrocyte distribution width (RBC) [Ratio] 15.3 % High 11.5-15.0 [facility] Comment on above: Performed By: #### L [id number] ####[facility] (BEAKER)[address] [address] ERYTHROCYTE MEAN CORPUSCULAR HEMOGLOBIN CONCENTRATION (G/DL) BY AUTOMATED 31.3 g/dL Low 32.0-35.0 [facility] Comment on above: Performed By: #### L [id number] ####[facility] (BE[facility]ER)[address] [address] Hematocrit (Bld) [Volume fraction] 36.7 % Normal 36.0-48.0 [facility] Comment on above: Performed By: #### L [id number] ####[facility] ([facility])[address] [address] Hemoglobin (Bld) [Mass/Vol] 11.5 g/dL Low 12.0-15.0 [facility] Comment on above: Performed By: #### L [id number] ####[facility] ([facility])[address] [address] MCH (RBC) [Entitic mass] 26.9 pg Low 27.0-33.0 [facility] Comment on above: Performed By: #### L [id number] ####[facility] ([facility])[address] [place] [address] MCV (RBC) [Entitic vol] 85.7 fL Normal 82.0-98.0 [facility] Comment on above: Performed By: #### L [id number] ####[facility] ([facility])[address] [facility] [place] [address] PLATELETS (10*3/UL) IN BLOOD AUTOMATED COUNT 243 10*3/uL Normal 150-400 [facility] Comment on above: Performed By: #### L [id number] ####[facility] ([facility])[address] [place] [address] RBC (Bld) [#/Vol] 4.28 10*6/uL Normal 3.80-5.00 [facility] Comment on above: Performed By: #### L [id number] ####[facility] ([facility])[address] [place] [address] WBC (Bld) [#/Vol] 7.41 10*3/uL Normal 4.00-10.60 [facility] Comment on above: Performed By: #### L [id number] ####[facility] ([facility])[address] [place] [address] CONSULTon 06-30-2024 CONSULT Cardiology Consult Note Reason for Consult: NSTEMI, transfer from [facility] HPI: Aby Madrigal, a 59 y.o. female patient, is transferred from [facility] for continuity of care. Past medical history includes: HTN History of TIA DMII HLD SURESH Overweight Patient reports that 3 days ago, she woke up in the mid of the night with indigestion, and a feeling fullness, but no pressure like chest pain. She presented to [facility], where she was found to be [...] Value Ventricular Rate 71 Atrial Rate 71 MO Interval 176 QRS DURATION 92 QT Interval 424 QTC CALCULATION(BAZETT) 460 P Brussels 52 R-Brussels 19 T Wave [place] 164 Impression Normal sinus rhythm Left ventricular [...] Normal sinu (more content not included)... Normal [facility] HPon 06-30-2024 HP H&P reviewed. The patient was examined and there are no changes to the H&P. 59 y.o. year old female with a PMHx significant for DM2, hypertension presents a direct mission from [facility] with a chief complaint of [...] to proceed. Signed, Yris Oakley MD PGY-4 Living Skills Advisor Pager: [phone] [facility] POCT GLUCOSE METER UNSOLICIT ED RESULTSon 06-30-2024 Glucose [Mass/Vol] 170 mg/dL High 70-105 [facility] Comment on above: Order Comment: Waive d Testing in the ED is performed under the ED CLIA certificate #[id number]. Result Comment: [email or web address] Performed By: #### L [id number] ####[facility] (BEAKER)[address] [place] [address] Glucose [Mass/Vol] 129 mg/dL High 70-105 [facility] Comment on above: Order Comment: Waive d Testing in the ED is performed under the ED CLIA certificate #[id number]. Result Comment: [email or web address] Performed By: #### L [id number] ####[facility] (BEAKER)[address] [place] [address] Glucose [Mass/Vol] 167 mg/dL High 70-105 [facility] Comment on above: Order Comment: Waive d Testing in the ED is performed under the ED CLIA certificate #[id number]. Result Comment: [email or web address] Performed By: #### L [id number] ####[facility] ([facility])[address] [facility] [place] [address] TROPONIN Ion 06-30-2024 Troponin I.cardiac [Mass/Vol] 0.07 ng/mL High 0.00-0.04 [facility] Comment on above: Performed By: #### L [id number] ####[facility] ([facility])[address] [place] [address] Troponin I.cardiac [Mass/Vol] 0.10 ng/mL High 0.00-0.04 [facility] Comment on above: Performed By: #### L [id number] ####[facility] ([facility])[address] [place] [address] Troponin I.cardiac [Mass/Vol] 0.11 ng/mL Critically high 0.00-0.04 [facility] Comment on above: Result Comment: M-TR OPONIN INITIAL CRITICAL HIGH; RESPUN AND RETESTED Performed By: #### L [id number] ####[facility] ([facility])[address] [facility] [place] [address] 30on 06-29-2024 30 The patient is Moderately Stable - Low risk of patient condition declining or worsening The patient's goals for the shift include COMFORT The clinical goals for the shift include VSS Normal [facility] APTTon 06-29-2024 ACTIVATED PARTIAL THROMBOPLASTIN TIME IN PPP BY COAGULATION ASSAY 34.5 Seconds Normal 25.0-35.0 [facility] Comment on above: Order Comment: Basel ine aPTT before initiating heparin infusion. Result Comment: Clin ical significance of the APTT is questionable in the presence of heparin. Performed By: #### L [id number] ####[facility] ([facility])[address] [place] [address] B-TYPE NATRIURETIC PEPTIDEon 06-29-2024 Natriuretic peptide B (Bld) [Mass/Vol] 222 pg/mL High 0-100 [facility] Comment on above: Performed By: #### L [id number] ####[facility] (BEAKER)[address] [place] [address] CBC WITH AUTO DIFFERENTIALon 06-29-2024 Basophils (Bld) [#/Vol] 0.05 10*3/uL Normal 0.00-0.20 [facility] Comment on above: Performed By: #### L [id number] ####[facility] ([facility])[address] [place] [address] Basophils/100 WBC (Bld) 0.6 % Normal 0.0-1.0 [facility] Comment on above: Performed By: #### L [id number] ####[facility] ([facility])[address] [place] [address] Eosinophils (Bld) [#/Vol] 0.18 10*3/uL Normal 0.00-0.50 [facility] Comment on above: Performed By: #### L [id number] ####[facility] ([facility] [place] [address] Eosinophils/100 WBC (Bld) 2.1 % Normal 0.0-6.0 [facility] Comment on above: Performed By: #### L [id number] ####[facility] ([facility] [place] [address] Erythrocyte distribution width (RBC) [Ratio] 14.9 % Normal 11.5-15.0 [facility] Comment on above: Performed By: #### L [id number] ####[facility] ([facility] [place] [address] ERYTHROCYTE MEAN CORPUSCULAR HEMOGLOBIN CONCENTRATION (G/DL) BY AUTOMATED 32.9 g/dL Normal 32.0-35.0 [facility] Comment on above: Performed By: #### L [id number] ####[facility] (BEAKER)[address] [place] [address] Hematocrit (Bld) [Volume fraction] 35.9 % Low 36.0-48.0 [facility] Comment on above: Performed By: #### L [id number] ####[facility] (BEAKER)[address] [place] [address] Hemoglobin (Bld) [Mass/Vol] 11.8 g/dL Low 12.0-15.0 [facility] Comment on above: Performed By: #### L [id number] ####[facility] (BEAKER)[address] [place] [address] Immature granulocytes (Bld) [#/Vol] 0.03 10*3/uL Normal 0.00-0.20 [facility] Comment on above: Performed By: #### L [id number] ####[facility] ([facility])[address] [place] [address] Immature granulocytes/100 WBC (Bld) 0.3 % Normal 0.0-1.0 [facility] Comment on above: Performed By: #### L [id number] ####[facility] (BEAKER)[address] [place] [address] Lymphocytes (Bld) [#/Vol] 2.02 10*3/uL Normal 1.20-4.00 [facility] Comment on above: Performed By: #### L [id number] ####[facility] (BE[facility]ER)[address] [place] [address] Lymphocytes/100 WBC (Bld) 23.5 % Normal 20.0-45.0 [facility] Comment on above: Performed By: #### L [id number] ####[facility] (BE[facility]ER)[address] [place] [address] MCH (RBC) [Entitic mass] 27.2 pg Normal 27.0-33.0 [facility] Comment on above: Performed By: #### L [id number] ####[facility] (BEAKER)[address] [place] [address] MCV (RBC) [Entitic vol] 82.7 fL Normal 82.0-98.0 [facility] Comment on above: Performed By: #### L [id number] ####[facility] ([facility])[address] [place] [address] Monocytes (Bld) [#/Vol] 0.56 10*3/uL Normal 0.10-1.00 [facility] Comment on above: Performed By: #### L [id number] ####[facility] (BEAKER)[address] [place] [address] Monocytes/100 WBC (Bld) 6.5 % Normal 5.0-12.0 [facility] Comment on above: Performed By: #### L [id number] ####[facility] (BEAKER)[address] [place] [address] Neutrophils (Bld) [#/Vol] 5.74 10*3/uL Normal 1.60-7.60 [facility] Comment on above: Performed By: #### L [id number] ####[facility] (BEAKER)[address] [place] [address] Neutrophils/100 WBC (Bld) 67.0 % Normal 40.0-72.0 [facility] Comment on above: Performed By: #### L [id number] ####[facility] (BE[facility]ER)[address] [place] [address] NRBC (PER 100 WBCS) BY AUTOMATED COUNT 0.0 % Normal 0 [facility] Comment on above: Performed By: #### L [id number] ####[facility] (BE[facility]ER)[address] [place] [address] PLATELETS (10*3/UL) IN BLOOD AUTOMATED COUNT 233 10*3/uL Normal 150-400 [facility] Comment on above: Performed By: #### L [id number] ####[facility] ([facility])[address] [place] [address] RBC (Bld) [#/Vol] 4.34 10*6/uL Normal 3.80-5.00 [facility] Comment on above: Performed By: #### L [id number] ####[facility] (BE[facility]ER)[address] [place] [address] WBC (Bld) [#/Vol] 8.58 10*3/uL Normal 4.00-10.60 [facility] Comment on above: Performed By: #### L [id number] ####[facility] ([facility] [place] [address] COMPREHENSIVE METABOLIC PANE Alec 06-29-2024 Albumin [Mass/Vol] 3.8 g/dL Normal 3.5-5.7 [facility] Comment on above: Performed By: #### L [id number] ####[facility] ([facility] [place] [address] ALP [Catalytic activity/Vol] 64 U/L Normal 34-104 [facility] Comment on above: Performed By: #### L [id number] ####[facility] ([facility])[address] [place] [address] ALT [Catalytic activity/Vol] 35 U/L Normal 7-52 [facility] Comment on above: Performed By: #### L [id number] ####[facility] ([facility])[address] [place] [address] Anion gap [Moles/Vol] 12 mmol/L Normal 7-20 [facility] Comment on above: Performed By: #### L [id number] ####[facility] ([facility] [place] [address] AST [Catalytic activity/Vol] 21 U/L Normal 13-39 [facility] Comment on above: Performed By: #### L [id number] ####[facility] ([facility])[address] [place] [address] Bilirubin [Mass/Vol] 0.4 mg/dL Normal 0.3-1.0 [facility] Comment on above: Performed By: #### L [id number] ####[facility] ([facility])[address] [place] [address] Calcium [Mass/Vol] 8.5 mg/dL Low 8.6-10.3 [facility] Comment on above: Performed By: #### L [id number] ####[facility] (BEAKER)[address] [place] [address] Chloride [Moles/Vol] 112 mmol/L High 98-107 [facility] Comment on above: Performed By: #### L [id number] ####[facility] (BEAKER)[address] [place] [address] CO2 [Moles/Vol] 22 mmol/L Normal 21-31 [facility] Comment on above: Performed By: #### L [id number] ####[facility] ([facility] [place] [address] Creatinine [Mass/Vol] 0.92 mg/dL Normal 0.60-1.20 [facility] Comment on above: Performed By: #### L [id number] ####[facility] ([facility])[address] [place] [address] GLOMERULAR FILTRATION RATE ML/MIN/1.73 SQ M.PREDICTED 71.3 mL/min/1.73m*2 Normal >60.0 [facility] Comment on above: Result Comment: [facility]???s estimated glomerular filtration rate [...] of individuals. Performed By: #### L [id number] ####[facility] ([facility] [place] [address] Glucose [Mass/Vol] 108 mg/dL High 70-100 [facility] Comment on above: Performed By: #### L [id number] ####[facility] (BEAKER)[address] [place] [address] Potassium [Moles/Vol] 3.7 mmol/L Normal 3.5-5.1 [facility] Comment on above: Performed By: #### L [id number] ####[facility] ([facility])[address] [place] [address] Protein [Mass/Vol] 6.1 g/dL Normal 6.0-8.3 [facility] Comment on above: Performed By: #### L [id number] ####[facility] ([facility])[address] [place] [address] Sodium [Moles/Vol] 142 mmol/L Normal 136-145 [facility] Comment on above: Performed By: #### L [id number] ####[facility] ([facility])[address] [place] [address] Urea nitrogen [Mass/Vol] 11 mg/dL Normal 7-25 [facility] Comment on above: Performed By: #### L [id number] ####[facility] ([facility])[address] [place] [address] UREA NITROGEN/CREATININE (MASS RATIO) IN SER/PLAS 12.0 Normal [facility] Comment on above: Performed By: #### L [id number] ####[facility] ([facility])[address] [place] [address] MAGNESIUMon 06-29-2024 Magnesium [Mass/Vol] 1.7 mg/dL Low 1.9-2.7 [facility] Comment on above: Performed By: #### L [id number] ####[facility] ([facility])[address] [place] [address] PHOSPHORUSon 06-29-2024 Magnesium [Mass/Vol] 2.9 mg/dL Normal 2.5-5.0 [facility] Comment on above: Performed By: #### L [id number] ####[facility] ([facility])[address] [place] [address] PROTIME-INRon 06-29-2024 INR IN PPP BY COAGULATION ASSAY 0.99 Normal 0.90-1.10 [facility] Comment on above: [...] CHEST 1995;108:231S-246S. Performed By: #### L [id number] ####[facility] [place] [address] PROTHROMBIN TIME (PT) IN PPP BY COAGULATION ASSAY 13.1 Seconds Normal 12.3-14.8 [facility] Comment on above: Performed By: #### L [id number] ####[facility] ([facility])[address] [place] [address] TROPONIN Ion 06-29-2024 Troponin I.cardiac [Mass/Vol] 0.10 ng/mL High 0.00-0.04 [facility] Comment on above: Performed By: #### L [id number] ####[facility] ([facility])[address] [place] [address] Office Visiton 06-21-2024 Follow-up visit [id number] Aby Madrigal 1965 F Date Provider Department Center 06/21/2024 GOMEZ KENDALL RIAZ [place] Family History Problem Relation Age of Onset Lung cancer Mother No Known Problems Father Lung cancer Sister Family Status - Relation Status Age at Mother Father Sister Level of Service:46427 MO OFFICE/OUTPATIENT ESTABLISHED MOD MDM 30 MIN Normal [facility] Office Visiton 05-26-2024 Follow-up visit [id number] Aby Madrigal 1965 F Date Provider Department Center 05/26/2024 [id number] Problem Relation Age of Onset Lung cancer Mother No Known Problems Father Lung cancer Sister Family Status - Relation Status Age at Mother Father Sister Level of Service:49390 MO OFFICE/OUTPATIENT NEW MODERATE MDM 45 MINUTES Normal [facility] Outside Colonoscopyon 2022 Outside Colonoscopy [id number] 0CD:127 Normal [facility] Reminderson 11-27-2022 Reminders - From: Na Hayes LPN To: N - Clinical; Sent: 11/27/2022 12:46:10 EST Show up: 10/25/2032 07:00:00 EST Subject: colonoscopy recall Due Date/Time: 11/25/2032 07:00:00 EST Reminder/Recall Patient is due for screening colonoscopy 11/25/2032. Normal [facility] Lab Reportson 11-24-2022 Lab Reports [id number]#1.0 0CD:127 Normal [facility] Covid-19 PCR (CVDTBH)on 10-24 SARS-CoV-2 (COVID-19) RNA BECK+probe Ql (Unsp spec) Not detected Normal NOT DETECTED [facility] Comment on above: Result Comment: This test is not yet approved or cleared by the [place] FDA. When there are no FDA-approved or cleared tests available, and other criteria are met, FDA can make tests available under an emergency access mechanism called an Emergency Use Authorization (EUA). The EUA for this test is supported by the [place] of Health and Human Service's (HHS's) declaration [...] consistent with SARS-CoV-2. Performed By: #### [facility] #### [facility] [address] [address] [address] Rich Cutler Consent for Procedure/Surger yon 10-07-2022 Consent for Procedure/Surgery [id number] 0CD:127 Normal [facility] Ambulatory Visit Summaryon 1 12-06-2021 Ambulatory Visit Summary ABY MADRIGAL :1965 Visit Date:10/06/2022 Ambulatory Visit Instructions Your Care Team Attending Physician - Umm LANDON MD Primary Care Physician - Kendra Moran MD [...] for. Allergic conjunctivitis Anticoagulated Kidney stones Normal [facility] VC VENOUS REFLUX NINO LMTon 1 12-02-2021 VC VENOUS REFLUX NINO LMT Patient: ABY MADRIGAL Exam Date: 10/02/2022 : 1965 Gender:F Ordering : DR KENDRA MORAN . Admission #: [id number] Family : Order #: [id number] CLICK HERE TO VIEW EXAM RADIOLOGY REPORT [...] chronic thrombus visualized Compressibility: Normal Flow: Normal Cardiac Surgeon: Dist/med calf 3.3mm with 0s reflux. Tech Note: Incompetent SFJ and GSV. Patent varicose vein mid/med calf 2.9mm with 0s reflux. Patent varicose vein prox/post calf 3.8mm with 0s reflux. Patent varicose vein dist/med thigh 3.8mm with 2.0s reflux. CONCLUSION: 1. Mild right and mqby-et-hapabwwm left great saphenous vein venous insufficiency with dilatation 2. Left saphenous popliteal junction reflux 3. Mild left anterior accessory saphenous vein venous insufficiency without dilatation 4. Small bilateral incompetent varicose veins Dictated by: Adelia Lezama MD on 10/02/2022 at 13:36 Approved by: Adelia Lezama MD on 10/02/2022 at 13:52 Normal [facility] ECHOCARDIO M/2D COMPLETEon 1 11-30-2021 ECHOCARDIO M/2D COMPLETE Patient: ABY MADRIGAL Exam Date: 09/30/2022 : 1965 Gender:F Ordering : DR KENDRA MORAN . Admission #: [id number] Family : Order #: [id number] CLICK HERE TO VIEW EXAM ECHOCARDIOGRAM REPORT [...] M.D. on 09/30/2022 at 18:37 Normal [facility] BNPon 09-24-2022 Natriuretic peptide B (Bld) [Mass/Vol] 501.0 pg/mL Normal <=900.0 [facility] Comment on above: Performed By: #### C VDTB #### [facility] [address] [place] [address] Dr. Rich Cutler CBC AUTO DIFFon 09-24-2022 BASO # 0.1 103/ul Normal 0.0-0.1 [facility] Comment on above: Performed By: #### C VDTBH #### [facility] [address] [place] [address] Dr. Rich Cutler Basophils/100 WBC (Bld) 0.8 % Normal 0.2-2.0 [facility] Comment on above: Performed By: #### C VDTBH #### [facility] [address] [place] [address] Dr. Rich Cutler EO # 0.3 103/ul Normal 0.0-0.7 [facility] Comment on above: Performed By: #### C VDTBH #### [facility] [address] [place] [address] Dr. Rich Cutler Eosinophils/100 WBC (Bld) 3.4 % Normal 0.9-7.0 [facility] Comment on above: Performed By: #### C VDTBH #### [facility] [address] [place] [address] Dr. Rich Cutler Erythrocyte distribution width (RBC) [Ratio] 13.3 % Normal 11.0-15.0 [facility] Comment on above: Performed By: #### C VDTBH #### [facility] [address] [place] [address] Dr. Rich Cutler Hematocrit (Bld) [Volume fraction] 40.5 % Normal 36.0-48.0 [facility] Comment on above: Performed By: #### C VDTBH #### [facility] [address] [place] [address] Dr. Rich Cutler Hemoglobin (Bld) [Mass/Vol] 13.1 g/dL Normal 12.0-16.0 [facility] Comment on above: Performed By: #### C VDTBH #### [facility] [address] [place] [address] Dr. Rich Cutler IG # 0.02 10e3/ul Normal 0.00-0.03 [facility] Comment on above: Performed By: #### C VDTBH #### [facility] [address] [place] [address] Dr. Rich Cutler IG % 0.3 % Normal 0.0-0.5 [facility] Comment on above: Performed By: #### C VDTBH #### [facility] [address] [place] [address] Dr. Rich Cutler LYMPH # 2.7 103/ul Normal 1.2-3.8 [facility] Comment on above: Performed By: #### C VDTBH #### [facility] [address] [place] [address] Dr. Rich Cutler Lymphocytes/100 WBC (Bld) 35.4 % Normal 20.5-60.0 [facility] Comment on above: Performed By: #### C VDTBH #### [facility] [address] [place] [address] Dr. Rich Cutler MANUAL DIFF REQ NO Normal [facility] Comment on above: Performed By: #### C VDTBH #### [facility] [address] [place] [address] Dr. Rich Cutler MCH (RBC) [Entitic mass] 28.2 pg Normal 26.7-34.0 [facility] Comment on above: Performed By: #### C VDTBH #### [facility] [address] [place] [address] Dr. Rich Cutler MCHC (RBC) [Mass/Vol] 32.3 g/dL Normal 29.9-35.2 [facility] Comment on above: Performed By: #### C VDTBH #### [facility] [address] [place] [address] Dr. Rich Cutler MCV (RBC) [Entitic vol] 87.3 fL Normal 81.0-99.0 [facility] Comment on above: Performed By: #### C VDTBH #### [facility] [address] [place] [address] Dr. Rich Cutler MONO # 0.5 103/ul Normal 0.3-0.8 [facility] Comment on above: Performed By: #### C VDTBH #### [facility] [address] [place] [address] Dr. Rich Cutler Monocytes/100 WBC (Bld) 6.5 % Normal 1.7-12.0 [facility] Comment on above: Performed By: #### C VDTBH #### [facility] [address] [place] [address] Dr. Rich Cutler NEUT # 4.1 103/ul Normal 1.4-6.5 [facility] Comment on above: Performed By: #### C VDTBH #### [facility] [address] [place] [address] Dr. Rich Cutler Neutrophils/100 WBC (Bld) 53.6 % Normal 43.0-75.0 [facility] Comment on above: Performed By: #### C VDTBH #### [facility] [address] [place] [address] Dr. Rich Cutler Platelet mean volume (Bld) [Entitic vol] 10.3 fL Normal 9.5-13.5 [facility] Comment on above: Performed By: #### C VDTBH #### [facility] [address] [place] [address] Dr. Rich Cutler PLT 283 103/ul Normal 150-450 [facility] Comment on above: Performed By: #### C VDTBH #### [facility] [address] [place] [address] Dr. Rich Cutler RBC 4.64 106/ul Normal 4.20-5.40 [facility] Comment on above: Performed By: #### C VDTBH #### [facility] [address] [place] [address] Dr. Rich Cutler WBC 7.6 103/ul Normal 4.0-11.0 [facility] Comment on above: Performed By: #### C VDTBH #### [facility] [address] [place] [address] Dr. Rich Cutler INSULINon 09-24-2022 Insulin 15.1 uIU/mL Normal 2.6-24.9 [facility] Comment on above: Performed By: #### C VDTBH #### [facility] [address] [place] [address] Dr. Rich Cutler PROF 14(COMP METB)on 022 Albumin [Mass/Vol] 3.5 g/dL Normal 3.4-5.0 [facility] Comment on above: Performed By: #### C VDTBH #### [facility] [address] [place] [address] Dr. Rich Cutler Albumin/Globulin [Mass ratio] 1.0 {ratio} Normal [facility] Comment on above: Performed By: #### C VDTBH #### [facility] [address] [address] [address] Rich Cutler ALP [Catalytic activity/Vol] 91 U/L Normal 46-116 [facility] Comment on above: Performed By: #### C VDTBH #### [facility] [address] [address] [address] Rich Cutler ALT [Catalytic activity/Vol] 47 U/L Normal 14-59 [facility] Comment on above: Performed By: #### C VDTBH #### [facility] [address] [address] [address] Rich Cutler Anion gap [Moles/Vol] 11.7 mmol/L Normal [facility] Comment on above: Performed By: #### C VDTBH #### [facility] [address] [place] [address] Dr. Rich Cutler AST [Catalytic activity/Vol] 24 U/L Normal 15-37 [facility] Comment on above: Performed By: #### C VDTBH #### [facility] [address] [place] [address] Dr. Rich Cutler Bilirubin [Mass/Vol] 0.2 mg/dL Normal 0.2-1.0 [facility] Comment on above: Performed By: #### C VDTBH #### [facility] [address] [place] [address] Dr. Rich Cutler Calcium [Mass/Vol] 8.9 mg/dL Normal 8.5-10.1 [facility] Comment on above: Performed By: #### C VDTBH #### [facility] [address] [place] [address] Dr. Rich Cutler Chloride [Moles/Vol] 105 mmol/L Normal 98-107 [facility] Comment on above: Performed By: #### C VDTBH #### [facility] [address] [place] [address] Dr. Rich Cutler CO2 [Moles/Vol] 28.1 mmol/L Normal 21.0-32.0 [facility] Comment on above: Performed By: #### C VDTBH #### [facility] [address] [address] [address] Rich Cutler Creatinine [Mass/Vol] 1.13 mg/dL Critically high 0.55-1.02 [facility] Comment on above: Performed By: #### C VDTBH #### [facility] [address] [address] [address] Rich Cutler EGFR-AF MACANESE 60 mL/min/1.73m2 Normal >=60 [facility] Comment on above: Performed By: #### C VDTBH #### [facility] [address] [address] [address] Rich Cutler EGFR-NON AF MACANESE 49 mL/min/1.73m2 Critically low >=60 [facility] Comment on above: Performed By: #### C VDTBH #### [facility] [address] [place] [address] Dr. Rich Cutler Globulin (S) [Mass/Vol] 3.5 g/dL Normal [facility] Comment on above: Performed By: #### C VDTBH #### [facility] [address] [address] [address] Rich Cutler Glucose [Mass/Vol] 119 mg/dL Critically high 74-106 [facility] Comment on above: Performed By: #### C VDTBH #### [facility] [address] [address] [address] Rich Cutler Potassium [Moles/Vol] 3.8 mmol/L Normal 3.5-5.1 [facility] Comment on above: Performed By: #### C VDTBH #### [facility] [address] [address] [address] Rich Cutler Protein [Mass/Vol] 7.0 g/dL Normal 6.4-8.2 [facility] Comment on above: Performed By: #### C VDTBH #### [facility] [address] [address] [address] Rich Cutler Sodium [Moles/Vol] 141 mmol/L Normal 136-145 [facility] Comment on above: Performed By: #### C VDTBH #### [facility] [address] [address] [address] Rich Cutler Urea nitrogen [Mass/Vol] 16.0 mg/dL Normal 7.0-18.0 [facility] Comment on above: Performed By: #### C VDTBH #### [facility] [address] [address] [address] Rich Cutler Urea nitrogen/Creatinine [Mass ratio] 14.2 mg/mg Normal [facility] Comment on above: Performed By: #### C VDTBH #### [facility] [address] [address] [address] Rich Cutler TROPONIN, HIGH SENSITIVITYon 09-24-2022 HSTROP 10.6 pg/mL Normal 4.0-51.3 [facility] Comment on above: Result Comment: CUT- OFF POINTS HAVE BEEN ESTABLISHED BASED ON THE FOURTH UNIVERSAL DEFINITIONS OF MYOCARDIAL INFARCTION. THE UPPER REFERENCE LIMIT (URL) OF TROPONIN, DEFINED THE 99TH PERCENTILE OF cTnI DISTRIBUTION IN A REFERENCE POPULATION, HAS BEEN CONFIRMED THE DECISION THRESHOLD FOR [place] DIAGNOSIS. Performed By: #### C VDTBH #### [facility] [address] [place] [address] Dr. Rich Cutler XR CHEST 1 Von [...] [facility] HUMPHRIES Date: 2022-09-24 04:08 Normal [facility] CBC AUTO DIFFon 09-23-2022 BASO # 0.1 103/ul Normal 0.0-0.1 [facility] Comment on above: Performed By: #### C BC #### [facility] [address] [place] [address] Dr. Rich Cutler Basophils/100 WBC (Bld) 0.8 % Normal 0.2-2.0 [facility] Comment on above: Performed By: #### C BC #### [facility] [address] [place] [address] Dr. Rich Cutler EO # 0.2 103/ul Normal 0.0-0.7 [facility] Comment on above: Performed By: #### C BC #### [facility] [address] [place] [address] Dr. Rich Cutler Eosinophils/100 WBC (Bld) 3.5 % Normal 0.9-7.0 [facility] Comment on above: Performed By: #### C BC #### [facility] [address] [place] [address] Dr. Rich Cutler Erythrocyte distribution width (RBC) [Ratio] 13.4 % Normal 11.0-15.0 [facility] Comment on above: Performed By: #### C BC #### [facility] [address] [place] [address] Dr. Rich Cutler Hematocrit (Bld) [Volume fraction] 42.3 % Normal 36.0-48.0 [facility] Comment on above: Performed By: #### C BC #### [facility] [address] [place] [address] Dr. Rich Cutler Hemoglobin (Bld) [Mass/Vol] 13.4 g/dL Normal 12.0-16.0 [facility] Comment on above: Performed By: #### C BC #### [facility] [address] [place] [address] Dr. Rich Cutler IG # 0.03 10e3/ul Normal 0.00-0.03 [facility] Comment on above: Performed By: #### C BC #### [facility] [address] [place] [address] Dr. Rich Cutler IG % 0.5 % Normal 0.0-0.5 [facility] Comment on above: Performed By: #### C BC #### [facility] [address] [place] [address] Dr. Rich Cutler LYMPH # 2.9 103/ul Normal 1.2-3.8 [facility] Comment on above: Performed By: #### C BC #### [facility] [address] [place] [address] Dr. Rich Cutler Lymphocytes/100 WBC (Bld) 44.0 % Normal 20.5-60.0 [facility] Comment on above: Performed By: #### C BC #### [facility] [address] [place] [address] Dr. Rich Cutler MANUAL DIFF REQ NO Normal [facility] Comment on above: Performed By: #### C BC #### [facility] [address] [place] [address] Dr. Rich Cutler MCH (RBC) [Entitic mass] 28.4 pg Normal 26.7-34.0 [facility] Comment on above: Performed By: #### C BC #### [facility] [address] [place] [address] Dr. Rich Cutler MCHC (RBC) [Mass/Vol] 31.7 g/dL Normal 29.9-35.2 [facility] Comment on above: Performed By: #### C BC #### [facility] [address] [place] [address] Dr. Rich Cutler MCV (RBC) [Entitic vol] 89.6 fL Normal 81.0-99.0 [facility] Comment on above: Performed By: #### C BC #### [facility] [address] [place] [address] Dr. Rich Cutler MONO # 0.4 103/ul Normal 0.3-0.8 [facility] Comment on above: Performed By: #### C BC #### [facility] [address] [place] [address] Dr. Rich Cutler Monocytes/100 WBC (Bld) 6.6 % Normal 1.7-12.0 [facility] Comment on above: Performed By: #### C BC #### [facility] [address] [place] [address] Dr. Rich Cutler NEUT # 2.9 103/ul Normal 1.4-6.5 [facility] Comment on above: Performed By: #### C BC #### [facility] [address] [place] [address] Dr. Rich Cutler Neutrophils/100 WBC (Bld) 44.6 % Normal 43.0-75.0 [facility] Comment on above: Performed By: #### C BC #### [facility] [address] [place] [address] Dr. Rich Cutler Platelet mean volume (Bld) [Entitic vol] 11.0 fL Normal 9.5-13.5 [facility] Comment on above: Performed By: #### C BC #### [facility] [address] [place] [address] Dr. Rich Cutler PLT 272 103/ul Normal 150-450 [facility] Comment on above: Performed By: #### C BC #### [facility] [address] [place] [address] Dr. Rich Cutler RBC 4.72 106/ul Normal 4.20-5.40 [facility] Comment on above: Performed By: #### C BC #### [facility] [address] [place] [address] Dr. Rich Cutler WBC 6.5 103/ul Normal 4.0-11.0 [facility] Comment on above: Performed By: #### C BC #### [facility] [address] [place] [address] Dr. Rich Cutler FREE THYROXINE INDEX T7on FTI 2.16 Normal 1.30-4.50 [facility] Comment on above: Performed By: #### L IPID, TSH, T7, CMP #### [facility] [address] [place] [address] Dr. Rich Cutler T3U 30.0 % Normal 30.0-39.0 [facility] Comment on above: Performed By: #### L IPID, TSH, T7, CMP #### [facility] [address] [place] [address] Dr. Rich Cutler T4 [Mass/Vol] 7.20 ug/dL Normal 4.80-13.90 [facility] Comment on above: Performed By: #### L IPID, TSH, T7, CMP #### [facility] [address] [address] [address] Rich Cutler GLYCOHEMOGLOBIN A1Con 2021 ADA RECOMMENDATION SEE BELOW Normal [facility] Comment on above: Result Comment: ADA RECOMMENDED LIMIT 4.0 - 6.0 ADA THERAPEUTIC TARGET < 7.0 ACTION SUGGESTED > 7.0 Performed By: #### A 1C #### [facility] [address] [place] [address] Dr. Rich Cutler Glucose [Mass/Vol] 128 mg/dL Normal [facility] Comment on above: Performed By: #### A 1C #### [facility] [address] [place] [address] Dr. Rich Cutler HbA1c (Bld) [Mass fraction] 6.1 % Normal 4.5-6.2 [facility] Comment on above: Performed By: #### A 1C #### [facility] [address] [place] [address] Dr. Rich Cutler IRONon 09-23-2022 Iron [Mass/Vol] 64.0 ug/dL Normal 50.0-170.0 [facility] Comment on above: Performed By: #### C VDTB #### [facility] [address] [place] [address] Dr. Rich Cutler LIPID PROFILEon 09-23-2022 CHOL-HDL RATIO NORM SEE BELOW Normal [facility] Comment on above: Result Comment: 3.3 - 4.4 LOW RISK 4.4 - 7.1 AVERAGE RISK 7.1 - 11.0 MODERATE RISK >11.0 HIGH RISK Performed By: #### L IPID, TSH, T7, CMP #### [facility] [address] [place] [address] Dr. Rich Cutler Cholesterol [Mass/Vol] 237 mg/dL Critically high <=200 [facility] Comment on above: Performed By: #### L IPID, TSH, T7, CMP #### [facility] [address] [place] [address] Dr. Rich Cutler Cholesterol in HDL [Mass/Vol] 44 mg/dL Normal 40-60 [facility] Comment on above: Performed By: #### L IPID, TSH, T7, CMP #### [facility] [address] [address] [address] Rich Cutler Cholesterol in LDL [Mass/Vol] 172.2 mg/dL Normal [facility] Comment on above: Performed By: #### L IPID, TSH, T7, CMP #### [facility] [address] [address] [address] Rich Cutler Cholesterol.total/C holesterol in HDL [Mass ratio] 5.4 {ratio} Normal [facility] Comment on above: Performed By: #### L IPID, TSH, T7, CMP #### [facility] [address] [address] [address] Rich Cutler HDL NORMAL > or = 60 mg/dl - LO W CARDIOVASCULAR RISK <40 mg/dl - HIGH CARDIOVASCULAR RISK Normal [facility] Comment on above: Performed By: #### L IPID, TSH, T7, CMP #### [facility] [address] [address] [address] Rich Cutler LDL CALC NORMAL SEE BELOW Normal [facility] Comment on above: Result Comment: <100 mg/dl OPTIMAL 100 - 129 mg/dl NEAR OR ABOVE OPTIMAL 130 - 159 mg/dl BORDERLINE HIGH 160 - 189 mg/dl HIGH >190 mg/dl VERY HIGH Performed By: #### L IPID, TSH, T7, CMP #### [facility] [address] [address] [address] Rich Cutler Triglyceride [Mass/Vol] 104 mg/dL Normal <=150 [facility] Comment on above: Performed By: #### L IPID, TSH, T7, CMP #### [facility] [address] [address] [address] Rich Cutler VLDL CALC 20.8 mg/dL Normal [facility] Comment on above: Performed By: #### L IPID, TSH, T7, CMP #### [facility] [address] [place] [address] Dr. Rich Cutler PROF 14(COMP METB)on 022 Albumin [Mass/Vol] 3.5 g/dL Normal 3.4-5.0 [facility] Comment on above: Performed By: #### L IPID, TSH, T7, CMP #### [facility] [address] [place] [address] Dr. Rich Cutler Albumin/Globulin [Mass ratio] 0.9 {ratio} Normal [facility] Comment on above: Performed By: #### L IPID, TSH, T7, CMP #### [facility] [address] [place] [address] Dr. Rich Cutler ALP [Catalytic activity/Vol] 93 U/L Normal 46-116 [facility] Comment on above: Performed By: #### L IPID, TSH, T7, CMP #### [facility] [address] [place] [address] Dr. Rich Cutler ALT [Catalytic activity/Vol] 44 U/L Normal 14-59 [facility] Comment on above: Performed By: #### L IPID, TSH, T7, CMP #### [facility] [address] [place] [address] Dr. Rich Cutler Anion gap [Moles/Vol] 8.5 mmol/L Normal [facility] Comment on above: Performed By: #### L IPID, TSH, T7, CMP #### [facility] [address] [place] [address] Dr. Rich Cutler AST [Catalytic activity/Vol] 26 U/L Normal 15-37 [facility] Comment on above: Performed By: #### L IPID, TSH, T7, CMP #### [facility] [address] [place] [address] Dr. Rich Cutler Bilirubin [Mass/Vol] 0.3 mg/dL Normal 0.2-1.0 [facility] Comment on above: Performed By: #### L IPID, TSH, T7, CMP #### [facility] [address] [place] [address] Dr. Rich Cutler Calcium [Mass/Vol] 9.0 mg/dL Normal 8.5-10.1 [facility] Comment on above: Performed By: #### L IPID, TSH, T7, CMP #### [facility] [address] [place] [address] Dr. Rich Cutler Chloride [Moles/Vol] 106 mmol/L Normal 98-107 [facility] Comment on above: Performed By: #### L IPID, TSH, T7, CMP #### [facility] [address] [place] [address] Dr. Rich Cutler CO2 [Moles/Vol] 31.0 mmol/L Normal 21.0-32.0 [facility] Comment on above: Performed By: #### L IPID, TSH, T7, CMP #### [facility] [address] [place] [address] Dr. Rich Cutler Creatinine [Mass/Vol] 1.11 mg/dL Critically high 0.55-1.02 [facility] Comment on above: Performed By: #### L IPID, TSH, T7, CMP #### [facility] [address] [place] [address] Dr. Rich Cutler EGFR-AF MACANESE >60 Normal >=60 [facility] Comment on above: Performed By: #### L IPID, TSH, T7, CMP #### [facility] [address] [place] [address] Dr. Rich Cutler EGFR-NON AF MACANESE 50 mL/min/1.73m2 Critically low >=60 [facility] Comment on above: Performed By: #### L IPID, TSH, T7, CMP #### [facility] [address] [place] [address] Dr. Rich Cutler Globulin (S) [Mass/Vol] 3.7 g/dL Normal [facility] Comment on above: Performed By: #### L IPID, TSH, T7, CMP #### [facility] [address] [place] [address] Dr. Rich Cutler Glucose [Mass/Vol] 121 mg/dL Critically high 74-106 [facility] Comment on above: Performed By: #### L IPID, TSH, T7, CMP #### [facility] [address] [place] [address] Dr. Rich Cutler Potassium [Moles/Vol] 4.5 mmol/L Normal 3.5-5.1 [facility] Comment on above: Performed By: #### L IPID, TSH, T7, CMP #### [facility] [address] [place] [address] Dr. Rich Cutler Protein [Mass/Vol] 7.2 g/dL Normal 6.4-8.2 [facility] Comment on above: Performed By: #### L IPID, TSH, T7, CMP #### [facility] [address] [place] [address] Dr. Rich Cutler Sodium [Moles/Vol] 141 mmol/L Normal 136-145 [facility] Comment on above: Performed By: #### L IPID, TSH, T7, CMP #### [facility] [address] [place] [address] Dr. Rich Cutler Urea nitrogen [Mass/Vol] 16.0 mg/dL Normal 7.0-18.0 [facility] Comment on above: Performed By: #### L IPID, TSH, T7, CMP #### [facility] [address] [place] [address] Dr. Rich Cutler Urea nitrogen/Creatinine [Mass ratio] 14.4 mg/mg Normal [facility] Comment on above: Performed By: #### L IPID, TSH, T7, CMP #### [facility] [address] [place] [address] Dr. Rich Cutler TSHon 09-23-2022 TSH 3.915 uIU/mL Critically high 0.358-3.740 [facility] Comment on above: Performed By: #### L IPID, TSH, T7, CMP #### [facility] [address] [place] [address] Dr. Rich Cutler Physician Referralon 022 Physician Referral [id number] Normal [facility] Lipid Panelon 11-16-2021 Cholesterol [Mass/Vol] 205 mg/dL High 140-200 [facility] Comment on above: Result Comment: Chol less than 200 mg/dl low risk Chol [id number] mg/dl borderline risk Chol 240 mg/dl and greater high risk Performed By: #### L IPID, [id number], TSH3 wRFLX #### [facility] [address] Cholesterol in HDL [Mass/Vol] 25 mg/dL Low 35-85 [facility] Comment on above: Result Comment: HDL CHOL ATP-III CLASSIFICATION Cardiovascular Risk HDL > or equal to 60 mg/dL LOW HDL < 40 mg/dL HIGH Performed By: #### L IPID, [id number], TSH3 wRFLX #### [facility] [address] Cholesterol.total/C holesterol in HDL [Mass ratio] 8.2 {ratio} Normal <5.0 [facility] Comment on above: Performed By: #### L IPID, [id number], TSH3 wRFLX #### [address] LDL Cholesterol,Calcula coby 160 mg/dL High 0-100 [facility] Comment on above: Result Comment: LDL ATP III CLASSIFICATION LDL less than 100 mg/dL Optimal LDL 100-129 mg/dL Near or above optimal LDL 130-159 mg/dL Borderline high LDL 160-189 mg/dL High LDL greater than 189 mg/dL Very high Performed By: #### L IPID, [id number], TSH3 wRFLX #### [place] [address] [place] Triglyceride w/Reflex 100 mg/dL Normal 35-149 [facility] Comment on above: Result Comment: TRIG ATP III CLASSIFICATION TRIG less than 150 mg/dL Normal TRIG 150-199 mg/dL Borderline high TRIG 200-500 mg/dL High TRIG greater than 500 mg/dL Very high Standard traceable to the Center for Disease Conrtrol and Prevention (CDC) test method. Performed By: #### L IPID, [id number], TSH3 wRFLX #### [address] VLDL CHOLESTEROL 20 mg/dL Normal [facility] Comment on above: Performed By: #### L IPID, [id number], TSH3 wRFLX #### [facility] [address] [place] [id number] [facility] Thyroid Stim Hormone w/Rflxo n 10-07-2021 Thyroid Stim Hormone w/Rflx 3.27 u[iU]/mL Normal 0.45-5.33 [facility] Comment on above: Performed By: #### L IPID, [id number], TSH3 wRFLX #### [facility] [address] [place] [id number] [facility] Vitamin D 25 Hydroxy Totalon 10-07-2021 Vitamin D 25 Hydroxy Total 26.5 ng/mL Low 30-100 [facility] Comment on above: Result Comment: JACKELINE MIN D STATUS 25(OH)VITAMIN D RANGE (ng/mL) Deficient <20 Insufficient 20 to <30 Sufficient 30 to 100 Reference: Lanny MF,Gino WILLIAMSON, Dyan VALENZUELA, et al. Evaluation,treatment, and prevention of vitamin D deficiency; an Endocrine Society clinical practice guideline. JCEM. 2010; 96(7):1911-30. PERFORMED BY: [place] [address] PATHOLOGIST LEISURE STUDIES PROFESSOR SILVESTRE SCHULER M.D. Performed By: #### L IPID, [id number], TSH3 wRFLX #### [place] [id number] [facility] Vital Signs Date Time Vital Sign Value Performing Clinician Deidre gagnon 03-03-2025 11:02040 Body height 160.02 cm [facility] 03-03-2025 11:02-0400 Body mass index (BMI) [Ratio] 35.6 kg/m2 [facility] 03-03-2025 11:02-0400 Body temperature 97.8 [degF] [facility] 03-03-2025 11:020400 Body weight 91.34 kg [facility] 03-03-2025 11:02-0400 Diastolic blood pressure 69 mm[Hg] [facility] 03-03-2025 11:02-0400 Heart rate 82 /min [facility] 03-03-2025 11:02-0400 Respiratory rate 18 /min [facility] 03-03-2025 11:02-0400 SaO2% (BldA) [Mass fraction] 96 % [facility] 03-03-2025 11:02-0400 Systolic blood pressure 108 mm[Hg] [facility] 03-02-2025 09:18-0400 Body height 162.6 cm Farzana Ely POWER SHEAR OPERATOR-SITE MANAGER Work Phone: [facility] 03-02-2025 09:18-0400 Body mass index (BMI) [Ratio] 34.81 kg/m2 Farzana Ely POWER SHEAR OPERATOR-SITE MANAGER Work Phone: [facility] 03-02-2025 09:18-0400 Body weight 91.99 kg Farzana Ely POWER SHEAR OPERATOR-SITE MANAGER Work Phone: [facility] 03-02-2025 09:18-0400 Diastolic blood pressure 68 mm[Hg] Farzana Ely POWER SHEAR OPERATOR-SITE MANAGER Work Phone: [facility] [employer] 03-02-2025 09:18-0400 Systolic blood pressure 118 mm[Hg] Farzana Ely POWER SHEAR OPERATOR-SITE MANAGER Work Phone: [facility] 10-06-2022 15:36-0500 Blood Pressure Location Umm LANDON [facility] 10-06-2022 15:36-0500 Diastolic blood pressure 86 mm[Hg] Umm LANDON [facility] 10-06-2022 15:36-0500 Heart rate 72 /min Umm LANDON [facility] 10-06-2022 15:36-0500 Respiratory rate 16 /min Umm LANDON [facility] 10-06-2022 15:36-0500 Systolic blood pressure 126 mm[Hg] Umm LANDON [facility] Encounters Encounter Date Encounter Type Care Provider Facility Start: 03-03-2025 End: 03-03-2025 ambulatory [facility] Work Phone: Start: 03-03-2025 End: 03-03-2025 Patient encounter procedure [facility] Work Phone: Start: 03-02-2025 End: 03-02-2025 ambulatory [facility] Start: 03-02-2025 End: 03-02-2025 [facility] SHEAR OPERATOR-SITE MANAGER Work Phone: [facility] Comment on above: Genitourinary syndro me of menopause (Primary Dx); PCB (post coital bleeding) Start: 02-26-2025 End: 02-26-2025 ambulatory [facility] Start: 02-07-2025 End: 02-07-2025 ambulatory [facility] Start: 01-09-2025 End: 01-09-2025 ambulatory [facility] Start: 01-02-2025 End: 01-02-2025 ambulatory [facility] Start: 10-26-2024 End: 10-26-2024 ambulatory [facility] Start: 10-03-2024 End: 10-03-2024 ambulatory [facility] Start: 09-04-2024 End: 09-04-2024 ambulatory [facility] Start: 08-29-2024 End: 08-29-2024 ambulatory [facility] Start: 08-04-2024 End: 08-04-2024 ambulatory [facility] Start: 07-20-2024 ambulatory [facility] Start: 07-20-2024 ambulatory KENDRA Muro [facility] Start: 07-18-2024 ambulatory [facility] Start: 07-18-2024 End: 07-18-2024 Emergency department patient visit HERMINIA JULIAN [facility] Start: 07-18-2024 End: 07-18-2024 ambulatory [facility] Start: 07-11-2024 Evaluation and manag ement of inpatient [facility] Start: 07-11-2024 Emergency department patient visit [facility] Start: 07-11-2024 End: 07-12-2024 Evaluation and management of inpatient JOSE BETANCUR [facility] Start: 07-10-2024 End: 07-10-2024 ambulatory [facility] Start: 06-30-2024 Evaluation and manag ement of inpatient [facility] Start: 06-30-2024 Evaluation and manag ement of inpatient [facility] Start: 06-29-2024 End: 07-01-2024 Evaluation and management of inpatient [facility] Start: 06-21-2024 End: 06-21-2024 [facility] Start: 05-26-2024 End: 05-26-2024 ambulatory [facility] Start: 11-26-2022 Encounter for preprocedural laboratory examination DR UMM LANDON . [facility] Start: 11-25-2022 End: 11-26-2022 ambulatory Umm LANDON Facility:CD:[id number] Start: 11-20-2022 End: 11-21-[address] UMM LANDON . Facility: Start: 11-20-2022 End: 11-21-2022 Encounter for preprocedural laboratory examination DR UMM Carter Facility: Start: 10-06-2022 End: 10-07-2022 ambulatory Umm LANDON Facility:[facility] Start: 10-06-2022 End: 10-06-2022 Patient encounter procedure Umm LANDON [facility] Start: 10-02-2022 End: 10-03-[address] KENDRA MORAN . Facility: Start: 09-30-2022 End: 10-01-[address] KENDRA MORAN . Facility:[facility] Start: 09-28-2022 Encounter for genera l adult medical examination without abnormal findings DR KENDRA MORAN . [facility] Start: 09-24-2022 End: 09-24-2022 ambulatory [...] 03-02-2026 Adult BMI Screening Adult BMI Screening [facility] Start: 03-02-2026 Tobacco Screening Tobacco Screening [facility] Start: 07-23-2025 Influenza vaccination Influenza Vaccine [facility] Start: 06-01-2025 End: 06-01-2025 Patient encounter procedure 06/01/2025 1:00 PM EDT Office Visit [facility] [address] [place] [id number] Afsaneh Jacome, POWER SHEAR OPERATOR-SITE MANAGER [address] [place], [place] [id number] [facility] Start: 07-23-2024 COVID-19 Vaccine ( season) COVID-19 Vaccine ( season) [facility] Start: 2014 Administration of varicella zoster vaccine Zoster (Shingles) Vaccine (1 of 2) [facility] Start: 1983 DTaP,Tdap and Td Vaccines (1 - Tdap) DTaP,Tdap and Td Vaccines (1 - Tdap) [facility] Start: 1982 Adult BMI Follow Up Plan Adult BMI Follow Up Plan [facility] Start: 1976 Depression Screening Depression Screening [facility] Immunizations Immunization Date Immunization Notes Care Provider Fa cility 11-07-2021 influenza virus vaccine, unspecified formulation Farzana Ely POWER SHEAR OPERATOR-SITE MANAGER Work Phone: [facility] 04-14-2021 SARS-CoV-2 (COVID-19 ) mRNA BNT-162b2 vax Umm L[facility]ON [facility] 03-11-2021 SARS-CoV-2 (COVID-19 ) mRNA BNT-162b2 vax Umm L[facility]ON [facility] NEGATED: Highlighted row has not occurred!10-07-2021 influenza, injectable, quadrivalent, preservative free [facility] Payers Date Payer Category Payer Medicaid [id number] 2022 Medicaid [id number] 2019 Private Health Insurance [id number] 2016 Unknown [id number] 1964 Unknown [id number] 2.16.8 [id number] 1964 Unknown [id number] 2.16.8 [id number] 1964 Unknown [id number] 2.16.84 [id number] 1964 Unknown [id number] 2.16.84 [id number] 1964 Unknown [id number] 2.16.84 [id number] 1964 Unknown [id number] 2.16.84 [id number] 1964 Unknown [id number] 2.16.84 [id number] 1964 Unknown [id number] 2.16.84 [id number] 1964 Unknown [id number] 2.16.84 [id number] 1964 Unknown [id number] 2.16. [id number] 1964 Unknown [id number] 2.16. [id number] 1964 Unknown [id number] 2.16.8 [id number] 1964 Unknown [id number] 2.16.8 [id number] 1960 Self-pay [id number] 1960 Unknown [id number] Social History Date Type Detail Facility Start: 10-06-2022 End: 03-02-2025 Tobacco smoking status Ex-smoker (finding) [facility] Tobacco smoking status Never [facility] Start: 01-02-2021 End: 03-02-2025 Sex Assigned At Female Ang R[facility] Start: 10-07-2021 History of tobacco use Current smoke r [facility] History of tobacco use Cigarette Smoker P [facility] Start: 01-02-2021 End: 03-02-2025 Cigarettes smoked current (pack per day) - Reported 1 [facility] Start: 03-02-2025 Tobacco use and exposure Smokeless tobacco non-user [facility] Start: 03-02-2025 Alcoholic beverage intake Ex-drinker (finding) [facility] Start: 1965 Sex assigned at Not on file P [facility] Start: 06-27-2015 End: 03-03-2025 Sex Female (finding) [facility] Start: 1965 Sex Assigned At Female F [facility] Functional Status Date Assessment Result Facility 10-06-2022 Functional Status N/A [facility] den[facility] Barba Clinical Notes 10-11-2022 to 03-02-2025 ELVIN Ramos - 03/02/2025 8:45 AM EDTPatient Instructions Note [...] Anxiety GERD (gastroesophageal reflux disease) Heart attack ([facility]) 06/29/2024 Hypertension MEDS Current Outpatient Medications Medication [...] Ramos 03/02/25 1132 [facility] 03-02-2025 Instructions ELVIN Ramos - 03/02/2025 8:45 [...] clitoris, and labia. documented in this encounter [facility] 02-26-2025 Note [place] [facility] Subjective Aby Madrigal is a [...] infarction) (CMS/HCC) Hypokalemia Coronary artery disease involving quechan coronary artery of quechan heart without angina pectoris Depression, major, severe [...] and V6. She was then admitted to [facility] on 07/11/2024 with NSTEMI. She [...] on 01/31/2025 she was evaluated at the [facility] because of chest pain. Workup was [...] Normal heart so (more content not included)... [facility] 02-07-2025 Note IR VENOGRAPHY VENOUS SAMPLE Procedure: [...] was achieved using a micropuncture set. A SpineGuard wire was advanced into the IVC and a 5 Slovak vascular sheath was placed. Selective catheterization of [...] Gage Núñez MD on 02/07/2025 10:05 PM [facility] 01-18-2025 Note Patient contacted of agueda, states she called [facility] to schedule the referral Dr. Christie had sent over, however no referral was received. Body Rolling Machine Tender faxed referral and recent visit note to [phone]. [facility] 01-09-2025 Note REASON FOR [...] metoprolol - Jun 2019 CT A/P in [place], [place] performed for abd pain, incidentally detected [...] (Imdur) 60 mg (more content not included)... [facility] 12-25-2024 Note Body Rolling Machine Tender spoke with Remington greene at [facility] regarding this patient. Tram said the way the order was placed through the system they just didn't see it, Tram assured caption writer that patient was being scheduled at the secondary infusion location. Any questions or concerns call Tram at [phone]. JLR [facility] 10-26-2024 Note Attestation signed by Richa Viramontes MD at 10/27/2024 12:07 PM I have seen and examined the patient. I reviewed the resident/fellow note and I agree with the findings and plan. Richa Viramontes MD Interventional Pulmonary Medicine Pulmonary and Critical Care Medicine [facility] Visit Note Patient: Aby Madrigal Age: 59 y.o. : 1965 Account No.: [id number] Chief complaint: RML nodule HPI Aby Madrigal is a 59 y.o. female with hypertension, CAD status post PCI recently in June 2024, cigarette smoking who is presenting to IP clinic via telemedicine as a new patient after being referred by Dr. Jarocho Saldaña. Patient reports recent admission to [facility] for hypertensive emergency. This prompted a CT of the chest which was positive for right middle lobe nodule. She then underwent PCI here at [facility] in June. She is currently [...] PFTs on file. CTA chest 04/21/2024 at [facility]: Right middle lobe approximately 1.2 cm solid nodule appreciated Subsequent PET CT 2024 at [facility]: Right middle lobe nodule is [...] pretest probability of (more content not included)... [facility] 10-03-2024 Note REASON FOR [...] metoprolol - CT A/P Jun 2019 in [place], [place] performed for abd pain, incidentally detected [...] Obstructive sleep apnea Panic attacks Stroke ([facility]) Past Surgical History: Procedure Laterality Date [...] 25 mg by (more content not included)... [facility] 09-04-2024 Note [place] [facility] Subjective Aby Madrigal is a 59 y.o. year old female patient being seen for follow up [facility] in Jun 2024 for hypotension. [...] infarction) (CMS/HCC) Hypokalemia Coronary artery disease involving quechan coronary artery of quechan heart without angina pectoris Depression, major, severe [...] and V6. She was then admitted to [facility] on 07/11/2024 with NSTEMI. She [...] and Affect: M (more content not included)... [facility] 07-20-2024 Note Attestation signed [...] Age: 59 y.o. : 1965 Account No.: [id number] Referring physician: Dr. Jarocho Saldaña Chief complaint: RML nodule HPI Aby Madrigal is a 59 y.o. female with hypertension, CAD status post PCI recently in June 2024,, cigarette smoking who is presenting to clinic via telemedicine as a new patient after being referred by Dr. Jarocho Saldaña. Patient reports recent admission to [facility] for hypertensive emergency. This prompted a CT of the chest which was positive for right middle lobe nodule. She then underwent PCI here at [facility] in June. She is currently [...] PFTs on file. CTA chest 04/21/2024 at [facility]: Right middle lobe approximately 1 cm spiculated nodule appreciated Subsequent PET CT 2024 at [facility]: Right middle lobe nodule is faintly PET avid Past Medical History: Diagnosis Date Abnormal ECG Diabetes mellitus ([facility]) Hyperlipidemia Hypertension Obstructive sleep apnea Panic attacks Stroke ([facility]) Past Surgical History: Procedure Laterality Date [...] alcohol. She reports (more content not included)... [facility] 07-18-2024 Note REASON FOR [...] metoprolol - CT A/P Jun 2019 in [place], [place] performed for abd pain, incidentally detected [...] History: Diagnosis Date Abnormal ECG Diabetes mellitus ([facility]) Hyperlipidemia Hypertension Obstructive sleep apnea Panic attacks Stroke ([facility]) Past Surgical History: Procedure Laterality Date [...] Rfl: carvedilol (C (more content not included)... [facility] 07-18-2024 Note 07/18/24 1001 Referral Data Referral Source home worker Referral Reason Information Patient Information Primary Caregiver Self Activities of Daily Living Assistive Device Not applicable Living Arrangement (Current/Prior to Hospitalization) Private residence Behavior Oriented Discharge Planning Support Systems Children;Family members Type of Residence Private residence Patient's goal for discharge home Patient recently discharged from [facility] to home. Resides at home alone. Discharge plan is home. [facility] 07-18-2024 Note Patient sent to ED f or hypotension and dizziness/lightheadedness [facility] 07-12-2024 Note Hospital Medicine Discharge Summary Final Discharge Diagnosis: NSTEMI Admission Diagnosis: Hypokalemia [E87.6] NSTEMI (non-ST elevated myocardial infarction) (CMS/HCC) [I21.4] Hypertensive urgency [I16.0] Adenoma of left adrenal gland [D35.02] Resistant hypertension [I1A.0] Atherosclerosis of quechan coronary artery of quechan heart without angina pectoris [I25.10] Coronary artery disease involving quechan coronary artery of quechan heart with unstable angina pectoris (CMS/HCC) [I25.110] Type 2 diabetes mellitus without complication, without long-term current use of insulin ([facility]) [E11.9] Hospital course: 59yoF with CAD s/p LAD SARKIS 11 days ago who was admitted to [facility] on 07/11 for chest pain. patient initially presented to [facility] for uncomfortable feeling in her chest and was found to have elevated troponins and new ischemic changes on EKG. Infusion and cardiology was consulted transferred to [facility] for further evaluation. Initially the patient had blood pressures up to 192/65 for which home medications were restarted. Troponins at [facility] were negative and there [...] Center 07/18/2024 8:20 AM Feng Christie MD [facility] 07/20/2024 1:00 PM Richa Viramontes MD [facility] ONC [facility] 09/05/2024 1:00 PM Bijan Mitchell MD [facility] Your medication list START taking [...] Your Medications These medications were sent to [facility]/pharmacy #[id number] [facility] [place] [facility] [address] [facility] [address] [facility] [address] isosorbide mononitrate ER 60 mg 24 hr [...] activity In process (more content not included)... [facility] 07-11-2024 Note 07/11/24 1817 [...] place to sleep or slept in a long-term (including now)? N Transportation Needs In the [...] than 3 How often do you attend denominational or yazidi services? Never Do you belong to any clubs or organizations such as denominational groups, unions, fraternal or athletic groups, or [...] In the past 12 months has the [employer], gas, oil, or water [employer] threatened to shut off services in your home? 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 Source home worker Referral Reason Psychosocial assessment Patient Information Primary Caregiver Self Accompanied by/Relationship Daughter (Rosita); Irsbzgef-jr-zvx (Yesy) Activities of Daily Living Assistive Device Not applicable Living Arrangement (Current/Prior to Hospitalization) Private residence (Lives at home by herself) Ambulation Independent Dressing Independent Feeding Independent Behavior Oriented (A&Ox4) Communication Can write;Talks;Understands speaking;Understands Algerian;Reads Income Information Income Source Unemployed (receives survivor benefits) Discharge Planning Support Systems Children;Family members (daughter, kfkqeeqk-ob-sns, son) Type of Residence Private residence Will patient need Precert for Post Acute needs? No Patient's goal for discharge Home Does the patient need discharge transport arranged? No Completed social work assessment and SDoH screening. Patient was A&Ox4 at this time. Patient's daughter, Rosita, and patient's ewurxiwb-he-mwn, Yesy, were currently present at bedside. Patient reported that she lives at home by herself and she identified her support system as her daughter, Rosita, her zbtivaly-ca-ylh, Yesy, and her son, Elie. Patient endorsed [...] any alcohol consumption or recreational drug use. [facility] 07-11-2024 Note Hospital Medicine History and Physical 07/11/2024 12:19 PM THE HOSPITALIST TEAM PREFERS TO USE [employer] FOR COMMUNICATION 7AM-7PM. IF I DO NOT RESPOND WITHIN 15 MINUTES, PLEASE PAGE ME/CALL THROUGH THE TRANSCRIPTER. FROM 7PM-7AM, PLEASE PAGE [phone](COVR) Chief Complaint Chief Complaint Patient presents with [...] s/p stent placement 11 days ago [address] [facility] presented to ER as a transfer from [facility] for NSTEMI. Patient states that [...] Noted Hypokalemia 07/11/2024 Coronary artery disease involving quechan coronary artery of quechan heart with unstable angina pectoris ([facility]) 07/11/2024 Anxiety 06/30/2024 Type 2 diabetes mellitus without complication, without long-term current use of insulin ([facility] [facility]) 06/30/2024 Chest pain 06/30/2024 Elevated troponin 06/30/2024 Hypertensive urgency 06/30/2024 Hypomagnesemia 06/30/2024 QURESHI (dyspnea on exertion) 05/26/2024 Atherosclerosis of quechan coronary artery of quechan heart without angina pectoris 05/26/2024 Hyperlipidemia 05/26/2024 Murmur, heart 05/26/2024 Sepsis ([facility]) 07/14/2019 BV (bacterial vaginosis) 10/18/2017 GERD (gastroesophageal reflux disease) 10/18/2017 Essential hypertension 10/18/2017 TIA (transient ischemic attack) 10/18/2017 NSTEMI (non-ST elevated myocardial infarction) ([facility]) 06/29/2024 Assessment and Plan NSTEMI CAD, [...] for GI prophylaxis (more content not included)... [facility] 07-10-2024 Note [facility] Note Reason for cardiology [...] Take 1 tablet (more content not included)... [facility] 07-01-2024 Note Hospital Medicine [...] hypertension, IBS presents a direct mission from [facility] with a chief complaint of [...] seen on her EKG. She went to [facility] for the symptoms. Labs were [...] drip and transferred to [facility] for likely cardiac cath. # [...] - Continue metformin. Dear Dr. Lidia MD, [facility] is advised to follow up [...] Your Medications These medications were sent to [facility]/pharmacy #[id number] [place] [id number] carvedilol 25 mg tablet cloNIDine 0.1 mg [...] Results from last 7 days Lab Units 06/29/ (more content not included)... [facility] 07-01-2024 Note [facility] CARDIOLOGY INPAT IENT PROGRESS NOTE Reason for follow up: NSTEMI Subjective Aby Madrigal, a 59 y.o. female patient, is transferred from [facility] for continuity of care. Patient reports that 3 days ago, she woke up in the mid of the night with indigestion, and a feeling fullness, but no pressure like chest pain. She presented to [facility], where she was found to be [...] 0.56 06/29/2024 E (more content not included)... [facility] 06-30-2024 Note Patient: Aby antony Procedure Information Date/Time: 06/30/24 1600 Procedure: Coronary angiography (Bilateral) Location: [facility] HEAD OF DRAMA 3 / [facility]ULAR [facility] (Cath) Providers: Brunilda Cuellar MD [...] Plan discussed with attending. Additional Equipment Requests [facility] 06-30-2024 Note 06/30/24 1446 Referral Data Referral Source home worker Referral Reason Follow up;Information Patient Information Primary Caregiver Self Accompanied by/Relationship daughters at bedside Activities of Daily Living Assistive Device Not applicable Living Arrangement (Current/Prior to Hospitalization) Private residence (three to four stairs) Ambulation Independent Dressing Independent Feeding Independent Behavior Oriented Communication Talks;Understands speaking;Understands [place]ian Discharge Planning Support Systems Children (daughters will [...] questions for social work at this time. [facility] 06-30-2024 Note 06/30/24 1431 [...] Not Interested Does the patient have a residential case manager assigned to them through their [...] to send link and activate MyChart? No [facility] 06-30-2024 Note Case was discussed w ith the SALVADOR on 06/29/2024. I agree with the history, physical, assessment, and plan of care. I discussed the findings and therapeutic plan. I agree with the documentation, except for any updates below. Maurice Mirlande, MD [facility] 06-30-2024 Note Hospital Medicine History and Physical 06/30/2024 1:15 AM THE HOSPITALIST TEAM PREFERS TO USE [employer] CHAT FOR COMMUNICATION 7AM-7PM. IF I DO NOT RESPOND WITHIN 15 MINUTES, PLEASE PAGE ME/CALL THROUGH THE TRANSCRIPTER. FROM 7PM-7AM, PLEASE PAGE [phone](COVR) Chief Complaint Direct admission from [facility] with CP History of Present Illness Aby Madrigal is an 59 y.o. female who came from home with past medical history of anxiety, DM2, hypertension, IBS presents a direct mission from [facility] with a chief complaint of [...] seen on her EKG. She went to [facility] for the symptoms. Labs were [...] drip and transferred to [facility] for likely cardiac cath. Review [...] complication, without long-term current use of insulin ([facility]) 06/30/2024 Chest pain 06/30/2024 Elevated troponin 06/30/2024 Hypertensive urgency 06/30/2024 QURESHI (dyspnea on exertion) 05/26/2024 Atherosclerosis of quechan coronary artery of quechan heart without angina pectoris 05/26/2024 Hyperlipidemia 05/26/2024 Murmur, heart 05/26/2024 Sepsis ([facility]) 07/14/2019 BV (bacterial vaginosis) 10/18/2017 GERD (gastroesophageal reflux disease) 10/18/2017 Essential hypertension 10/18/2017 TIA (transient ischemic attack) 10/18/2017 Assessment and Plan Aby Madrigal is an 59 y.o. female who came from home with past medical history of anxiety, DM2, hypertension, IBS presents a direct mission from [facility] with a chief complaint of [...] dysfunction on echoc (more content not included)... [facility] 06-21-2024 Note [place] [facility] Subjective Aby Madrigal is a 59 y.o. year old female patient being seen for follow up [facility] per Dr. Moran. She has not [...] attack) QURESHI (dyspnea on exertion) Atherosclerosis of quechan coronary artery of quechan heart without angina pectoris Hyperlipidemia Murmur, heart [...] Judgment: Judgment no (more content not included)... [facility] 05-26-2024 Note [facility] Note Reason for cardiology [...] PSYCH: appropriate mood, (more content not included)... [facility] 11-25-2022 Note OPERATIVE NOTE [...] 10 years. CC: Kendra Moran M.D. [facility] 10-11-2022 Note Chief Complaint consultation [...] 1 tab(s), Oral, (more content not included)... [facility] Comment on above: Result Comment: Elec tronically Signed By: DIPESH BUCKNER, Umm Hogan\Date and Time Signed: 10/11/22 11:01 EST Evaluation + Plan note No data available for this section General Surgery [facility] Evaluation note Diagnosis Genitourinary syndrome of menopause- Primary PCB (post coital bleeding) Postcoital bleeding documented [facility] note[facility] assessment information available [facility] Work Phone: Hospital Discharge instructions No data available for this section General Surgery [facility] Progress note No data available for this section General Surgery [facility] Summary Purpose Family History No Family History Records Found Relationship Condition Age at Onset Recorded Date/T luke sister Malignant neoplasm Unknown mother Malignant neoplasm Unknown Advance Directives No Advanced Directives Records Found Advance Directive Response Recorded Date/ Time Advance Directives No September 1:40pm Chief Complaint and Reason for Visit Chief Complaint Admit Date head cold, congestion March 03, 2025 1 0:35am Additional Source Comments INFORMATION SOURCE (unrecogn ized section and content) DATE CREATED AUTHOR 12/17/2021 [facility] DATE CREATED AUTHOR AUTHOR'S ORGANIZ ATION 12/16/2022 Ang Boyd [facility] DATE CREATED AUTHOR AUTHOR'S ORGANIZ ATION 03/26/2023 [facility] DATE CREATED AUTHOR AUTHOR'S ORGANIZ ATION 02/11/2025 [facility] DATE CREATED AUTHOR AUTHOR'S ORGANIZ ATION [facility]04/20[facility] DATE CREATED AUTHOR AUTHOR'S ORGANIZ ATION 03/05/2025 [facility] Patient Care team informatio n (unrecognized section and content) [facility] Relationship Specialty Start Date End Date Kendra [...] Reason Comments ESTABLISHED PATIENT Patient presents tod for vaginal bleeding after intercourse. Goals (unrecognized [...] BE BASED ON THE PRIMARY CLINICAL RECORDS. [facility] [employer] [facility]. provides no warranty or guarantee of the accuracy or completeness of information in this document.
== END 2025-03-12 12:26 | disposition home or self-care (01) ==
PROVIDERS: Emergency Provider Emergency Medicine; PCP Family Medicine
DX: J34.0 Abscess, furuncle and carbuncle of nose (principal); Z87.891 Personal history of nicotine dependence; Z95.5 Presence of coronary angioplasty implant and graft; Z98.51 Tubal ligation status; Z90.49 Acquired absence of other specified parts of digestive tract
CPT/HCPCS: 99283

== ENCOUNTER 2025-03-25 22:12 | Emergency (ER) | payer MEDICAID, SELFPAY ==
[2025-03-25] VITALS (8 sets, daily range): BP systolic 125–157; BP diastolic 76–80; PULSE 79–87; TEMP 36.8; O2SAT 94–97; BMI 34.0
--- NOTE | 2025-03-25 22:36 | PC.NURSE ---
this patient complains of 2 days of epigastric pain, but today new complaints of sinus pressure, nausea, dizziness. ems started 20 gauge left ac, and given 4 mg of zofran
--- NOTE | 2025-03-25 23:22 | ECG_ITS ---
[facility] Test Date: 2025-03-25 Pat Name: MILAN RASMUSSEN Department: Room: - Gender: Female Coat Presser: : 1965 Requested By: [id number] Order Number: [id number] Reading MD: GOMEZ JAY M.D. Measurements Intervals [place] Rate: 79 P: 50 TN: 182 QRS: 11 QRSD: 96 T: 181 QT: 350 QTc: 384 Interpretive Statements 1100 Sinus rhythm [address] depression 4564 Twave abnormality, possible lateral ischemia 9150 abnormal ECG Compared to ECG 01/31/2025 00:27:11 No significant changes Electronically Signed On 03-26-2025 7:48:20 EDT by GOMEZ JAY M.D.
[2025-03-25 23:29] LABS: Basophils Percent Auto 0.5 % (0.2-2.0); Eosinophils Absolute Auto 0.1 10^3/uL (0.0-0.7); Eosinophils Percent Auto 1.6 % (0.9-7.0); Hematocrit 36.9 % (36.0-48.0); Hemoglobin 11.9 g/dL (12.0-16.0); Immature Granulocytes Abs Auto 0.02 10^3/uL (0.00-0.03); Immature Granulocytes Pct Auto 0.3 % (0.0-0.5); Lymphocytes Absolute Auto 2.2 10^3/uL (1.2-3.8); Mean Corpuscular HGB Conc 32.2 g/dL (29.9-35.2); Mean Corpuscular Hemoglobin 26.2 pg (26.7-34.0); Mean Corpuscular Volume 81.1 fL (81.0-99.0); Mean Platelet Volume 10.1 fL (9.5-13.5); Monocytes Absolute Auto 0.5 10^3/uL (0.3-0.8); Monocytes Percent Auto 6.4 % (1.7-12.0); Neutrophils Absolute Auto 4.5 10^3/uL (1.4-6.5); Neutrophils Percent Auto 61.2 % (43.0-75.0); Platelet Count 266 10^3/uL (150-450); Red Blood Count 4.55 10^6/uL (4.20-5.40); White Blood Count 7.3 10^3/uL (4.0-11.0)
[2025-03-25 23:43] LABS: Alanine Aminotransferase 26 U/L (14-59); Albumin Globulin Ratio 0.9; Albumin Level 3.2 g/dL (3.4-5.0); Alkaline Phosphatase 79 U/L (46-116); Anion Gap 9.7; Aspartate Amino Transferase 20 U/L (15-37); BUN Creatinine Ratio 14.2; Bilirubin Total 0.3 mg/dL (0.2-1.0); C Reactive Protein 0.89 mg/dL (<=0.50); Calcium 9.7 mg/dL (8.5-10.1); Carbon Dioxide 27.8 mmol/L (21.0-32.0); Chloride 104 mmol/L (98-107); Estimated GFR (African America 49 (>=60 mL/min/1.73m^2); Estimated GFR (Non-African Ame 40 (>=60 mL/min/1.73m^2); Globulin 3.5 g/dL; Glucose 131 mg/dL (74-106); Sodium 139 mmol/L (136-145); Total Protein 6.7 g/dL (6.4-8.2); Troponin I High Sensitivity 11.9 pg/mL (4.0-51.3)
[2025-03-25 23:44] LABS: Potassium 2.5 mmol/L (3.5-5.1)
--- NOTE | 2025-03-25 23:45 | PC.NURSE ---
lab dept called with a critical K+ = 2.5, Dr Mares os aware of this critical
[2025-03-26] VITALS (25 sets, daily range): BP systolic 89–149; BP diastolic 48–84; PULSE 64–82; TEMP 36.9; O2SAT 93–98
[2025-03-26] MEDS: ONDANSETRON PF 4 MG/2 ML VIAL IV (00:36)
[2025-03-26] MEDS: 0.9 % SODIUM CHLORIDE 1,000 ML 125 ML IV (00:36)
[2025-03-26] MEDS: MORPHINE SULFATE 4 MG/ML VIAL IV (00:36)
[2025-03-26] MEDS: POTASSIUM BICARBONATE/CIT 25 MEQ TABLET EFF 50 MEQ PO (01:10)
[2025-03-26] MEDS: POTASSIUM CHLORIDE IN WATER 10 MEQ/100 ML PREMIX 100 MEQ IV ×2 (01:14→02:13)
[2025-03-26 01:43] LABS: Troponin I High Sensitivity 16.2 pg/mL (4.0-51.3)
[2025-03-26 01:55] LABS: Magnesium 0.9 mg/dL (1.8-2.4)
--- NOTE | 2025-03-26 01:58 | ED.CHESTPAI1 ---
HPI - Chest Pain General Chief Complaint: Chest Pain Stated Complaint: Dizziness Time Seen by Provider: 03/25/25 22:55 Source: patient Mode of arrival: ambulance Limitations: no limitations History of Present Illness HPI narrative: The patient is a 59-year-old female presenting to the emergency department with complaint that started this evening. Patient developed pain in her lower chest upper abdominal area of her abdomen. It is an 8 out of 10. It was a pressure-like in sensation. Nothing in particular made it worse. Nothing made it better. Patient does not have a known history of coronary artery disease. She does not have a history of pancreatitis. She does not have a history of gastroparesis. She is having loose bowel movements like water . Patient denies any radiation or movement of the discomfort. It is not reproducible. Unknown what makes it worse. Nothing makes it better. The patient was unable to take a satisfying breath but denies any shortness of breath. Patient does not recall having a stress test. She does not have a corrugator. MD complaint: Reports chest discomfort Risk Factors Coronary artery disease risk factors: diabetes, hyperlipidemia and hypertension Thoracic aortic dissection risk factors: none Related Data On Oral Contraceptives: No Home Medications ?Medication ?Instructions ?Recorded ?Confirmed metformin 500 mg tablet 500 mg PO BID 04/21/24 03/03/25 aspirin 81 mg capsule 81 mg PO DAILY 04/22/24 03/03/25 clopidogrel 75 mg tablet 75 mg PO DAILY 07/01/24 03/03/25 quetiapine 100 mg tablet (Seroquel) 100 mg PO .QHS 07/24/24 03/03/25 rosuvastatin 40 mg tablet 40 mg PO DAILY 07/24/24 03/03/25 isosorbide mononitrate 60 mg 60 mg PO BID 07/31/24 03/03/25 tablet,extended release 24 hr lorazepam 1 mg tablet (Ativan) 1 mg PO Q6H PRN anxiety 07/31/24 03/03/25 hydralazine 50 mg tablet 50 mg PO TID PRN hypertension 09/15/24 03/03/25 Previous Rx's ?Medication ?Instructions ?Recorded carvedilol 25 mg tablet 25 mg PO TID #90 tabs 07/27/24 canagliflozin 300 mg tablet 300 mg PO DAILY #30 tabs 11/13/24 (Invokana) pantoprazole 40 mg tablet,delayed 40 mg PO BID #60 tabs 11/13/24 release (Protonix) ondansetron 4 mg disintegrating 4 mg PO Q6H PRN nausea and 03/03/25 tablet vomiting #20 tabs cephalexin 500 mg capsule 500 mg PO QID 10 days #40 caps 03/12/25 sulfamethoxazole 800 1 tab PO BID 10 days #20 tabs 03/12/25 mg-trimethoprim 160 mg tablet (Bactrim DS) Allergies Allergy/AdvReac Type Severity Reaction Status Date / Time lisinopril Allergy Severe Cough Verified 03/25/25 22:14 amlodipine Allergy Mild Headache Verified 03/25/25 22:14 alprazolam (From Xanax) AdvReac Severe Watery Eye Verified 03/25/25 22:14 Review of Systems ROS Narrative 10 Systems were reviewed, and unless noted in the HPI, all other systems are reviewed, unremarkable, or noncontributory. [facility] Medical History Elevated troponin ?R79.89 - Other specified abnormal findings of blood chemistry (ICD-10) Hypertensive emergency ?I16.1 - Hypertensive emergency (ICD-10) Acute non-ST elevation myocardial infarction (NSTEMI) ?I21.4 - Non-ST elevation (NSTEMI) myocardial infarction (ICD-10) Chest pain ?R07.9 - Chest pain, unspecified (ICD-10) CAD (coronary artery disease) ?I25.10 - Atherosclerotic heart disease of [place] coronary artery without angina pectoris (ICD-10) Hypertensive urgency ?I16.0 - Hypertensive urgency (ICD-10) HTN (hypertension) ?I10 - Essential (primary) hypertension (ICD-10) Hypertensive urgency ?I16.0 - Hypertensive urgency (ICD-10) Chest pain ?R07.9 - Chest pain, unspecified (ICD-10) Anxiety ?F41.9 - Anxiety disorder, unspecified (ICD-10) HTN (hypertension) ?I10 - Essential (primary) hypertension (ICD-10) Hypokalemia ?E87.6 - Hypokalemia (ICD-10) Hypertension, uncontrolled ?I10 - Essential (primary) hypertension (ICD-10) Chest pain ?R07.9 - Chest pain, unspecified (ICD-10) NSTEMI (non-ST elevated myocardial infarction) ?I21.4 - Non-ST elevation (NSTEMI) myocardial infarction (ICD-10) Shortness of breath ?R06.02 - Shortness of breath (ICD-10) Headache ?R51.9 - Headache, unspecified (ICD-10) Elevated d-dimer ?R79.89 - Other specified abnormal findings of blood chemistry (ICD-10) Hypertensive emergency ?I16.1 - Hypertensive emergency (ICD-10) Uncontrolled hypertension ?I10 - Essential (primary) hypertension (ICD-10) Irritable bowel syndrome ?K58.9 - Irritable bowel syndrome without diarrhea (ICD-10) H/O nephrolithotomy with removal of calculi ?Z98.890 - Other specified postprocedural states (ICD-10) ?Z87.442 - Personal history of urinary calculi (ICD-10) Kidney stone ?N20.0 - Calculus of kidney (ICD-10) Sepsis ?A41.9 - Sepsis, unspecified organism (ICD-10) H/O angiography ?Z92.89 - Personal history of other medical treatment (ICD-10) Lung nodule ?R91.1 - Solitary pulmonary nodule (ICD-10) Anxiety ?F41.9 - Anxiety disorder, unspecified (ICD-10) HTN (hypertension) ?I10 - Essential (primary) hypertension (ICD-10) Diabetes ?E11.9 - Type 2 diabetes mellitus without complications (ICD-10) TIA (transient ischemic attack) ?G45.9 - Transient cerebral ischemic attack, unspecified (ICD-10) Surgical History H/O heart artery stent ?Z95.5 - Presence of coronary angioplasty implant and graft (ICD-10) History of appendectomy ?Z90.49 - Acquired absence of other specified parts of digestive tract (ICD-10) H/O tubal ligation ?Z98.51 - Tubal ligation status (ICD-10) History of cholecystectomy ?Z90.49 - Acquired absence of other specified parts of digestive tract (ICD-10) Family History Mother Family history of cancer Father MVA (motor vehicle accident) Brother Family history of stroke Social History Within the past year, how often did you have a drink containing alcohol: never Within the past year, how often did you have six or more drinks on one occasion: never Score interpretation: A score less than 3 is consistent with normal alcohol consumption. Smoking status: Former smoker Second hand tobacco smoke exposure: No Non-prescribed substance use: denies use Previous occupational history: no Known occupational exposures/hazards: No Highest level of school completed/degree received: high school graduate Do you want help with school or training: No Are you now , , , , never or living with a partner: In a typical week, how many times do you talk on the telephone with family, friends, or neighbors: 3 or more times per week How often do you get together with friends or relatives: 3 or more times per week How often do you attend yarsanism or nondenominational services: never Do you belong to any clubs or organizations such as yarsanism groups unions, [employer] or athletic groups, or school groups: no Total score: 1 Score interpretation: A score of less than or equal to 1 indicates the most socially isolated. Little interest or pleasure in doing things: not at all Feeling down, depressed, or hopeless: not at all Feel stressed/tense/nervous/anxious/difficulty sleeping: not at all Do you think of yourself as: straight/heterosexual Gender Identity: female Exam Narrative Exam Narrative: Prior to examining the patient, I have washed with hospital approved and provided Antiseptic Hand Facsimile Operator and have also applied gloves.? Prior to touching the patient, I asked for consent to examine the patient.? General: Alert and oriented, well nourished, mild distress. Eye: PERRL, EOMI, normal conjunctiva. HENT: Normocephalic, normal hearing, moist oral mucosa, no scleral icterus, no sinus tenderness. Positive paranasal tenderness. No turbinate edema. Dentitions intact. Neck: Supple, non-tender, no carotid bruits, no JVD, no lymphadenopathy. Lungs: Clear to auscultation and percussion, non-labored respiration. No rhonchi, rales, wheezing Heart: Normal rate, regular rhythm, no murmur, gallop or edema. Abdomen: Soft, tender in the epigastrium without any guarding or rebound, non-distended, normal bowel sounds, no masses. Musculoskeletal: Normal range of motion and strength, no tenderness or swelling. Skin: Skin is warm, dry and pink, no rashes or lesions. Neurologic: Awake, alert, and oriented X3, CN II-XII intact. Psychiatric: Cooperative, appropriate mood and affect.? Following the conclusion of the examination, I have washed my hands thoroughly after removing examination gloves. Constitutional Vital Signs, click to edit/add: Last Vital Signs Temp 98.2 F 03/25/25 22:14 Pulse 72 03/26/25 03:10 Resp 17 03/26/25 03:10 BP 103/62 03/26/25 03:00 Pulse Ox 96 03/26/25 03:10 O2 Del Method Room Air 03/25/25 22:14 Course Course Hospital Course: In summary the patient is a 5-year-old female presenting to the emergency department with lower chest upper abdominal discomfort. She is currently on antibiotics a second round with a double antibiotics. She is currently taking levofloxacin 750 mg daily and doxycycline 100 mg twice daily. She has 5 days left. Patient was previously on 2 other antibiotics that just recently finished and then she started these subsequently. Patient denies any history of pancreatitis, gastroparesis, she does have diabetes but has never had any type of stomach issues. Patient does not use marijuana. Patient received potassium 50 mill equivalents by mouth and 20 mill colons intravenously. She received magnesium 2 g IV piggyback. She tolerated the medications well. Reevaluation(s) Reevaluation #1: Patient was reevaluated. She is resting comfortably. She is receiving potassium and magnesium. She has no complaints at this time. Time: 02:25 Reevaluation #2: Patient was reevaluated. She is feeling much better. She appears nontoxic and in no acute distress. I reviewed her laboratories. Her troponin both were negative and in addition to being negative there was no change in the delta level greater than 6. Therefore I do not believe that the patient is having any acute myocardial event at this time. I discussed with the patient the need or suggested her taking Carafate. I feel that the strong antibiotics that she has been taking from the first round and then now taking levofloxacillin 750 mg daily and doxycycline 100 mg twice daily is hard on the stomach. Patient states that she is taking Protonix 40 mg twice daily. I feel that it would strongly help her for periods and she is getting that nauseous feeling or pit in her stomach from the antibiotics. In addition, I suggested to the patient that she take probiotic or yogurt. She was not really excited about doing either of those. She states that she only had 5 more days of antibiotic. I expressed my concern there with the diarrhea that she has been having is already wiping out her good bacteria and that she may need to consider taking them. At this time she is not interested. She will however take her antibiotics until they are completed as directed by her physician. Patient does feel safe going home. Her potassium and magnesium have completed infusion. Time: 03:52 Vital Signs Vital signs: Vital Signs Temperature 98.2 F 03/25/25 22:14 Pulse Rate 79 03/25/25 22:14 Respiratory Rate 18 03/25/25 22:14 Blood Pressure 125/77 03/25/25 22:14 Pulse Oximetry 95 03/25/25 22:14 Oxygen Delivery Method Room Air 03/25/25 22:14 Temperature 98.2 F 03/25/25 22:14 Pulse Rate 72 03/26/25 03:10 Respiratory Rate 17 03/26/25 03:10 Blood Pressure 103/62 03/26/25 03:00 Pulse Oximetry 96 03/26/25 03:10 Oxygen Delivery Method Room Air 03/25/25 22:14 MDM - Chest Pain MDM Narrative Medical decision making narrative: In summary, the patient is a 59-year-old female presenting to the emergency department with several complaints. One of them is that she is having chest/epigastric abdominal pain. She is having nausea. She has a headache. And she felt dizzy. She felt generally unwell. Patient does discuss the fact that her doctor wanted her to have a CT scan of the maxillofacial area secondary to her acute sinusitis and cellulitis of the nasal passages. This was done and revealed that the patient has evidence of rhinitis with narrowing of the nasal airway but the patient does not have any evidence of acute sinusitis. The patient was given oral and intravenous potassium supplementation and given intravenous magnesium supplementation. Patient did tolerate the medications well. Strongly believe that they helped with her discomfort. Differential Diagnosis Differential diagnosis: Likely pneumothorax, stable angina, unstable angina pectoris, atypical chest pain, st elevation myocardial infarction, costochondritis, chest pain, biliary colic and other (Gastritis, gastric ulcer, gastroparesis, electrolyte abnormality, dehydration) Medical Records Data Attestation: I reviewed the patient's medical records. Lab Data Attestation: I reviewed the patient's lab results. Lab results narrative: The patient has no evidence of anemia or leukocytosis. The patient's comprehensive metabolic panel is revealing a potassium of 2.5. As such I did check a magnesium and that was also low at 0.9. I suspect that the potassium was low from diarrhea as well as low magnesium. Patient's 2 troponins were negative. There was no evidence of significant delta change. Labs: Lab Results 03/25/25 03/26/25 Range/Units 22:25 01:13 WBC 7.3 (4.0-11.0) 10^3/uL RBC 4.55 (4.20-5.40) 10^6/uL Hgb 11.9 L (12.0-16.0) g/dL Hct 36.9 (36.0-48.0) % MCV 81.1 (81.0-99.0) fL MCH 26.2 L (26.7-34.0) pg MCHC 32.2 (29.9-35.2) g/dL RDW 15.0 (11.0-15.0) % Plt Count 266 (150-450) 10^3/uL MPV 10.1 (9.5-13.5) fL Neut % (Auto) 61.2 (43.0-75.0) % Lymph % (Auto) 30.0 (20.5-60.0) % Kimball % (Auto) 6.4 (1.7-12.0) % Eos % (Auto) 1.6 (0.9-7.0) % Baso % (Auto) 0.5 (0.2-2.0) % Neut # (Auto) 4.5 (1.4-6.5) 10^3/uL Lymph # (Auto) 2.2 (1.2-3.8) 10^3/uL Kimball # (Auto) 0.5 (0.3-0.8) 10^3/uL Eos # (Auto) 0.1 (0.0-0.7) 10^3/uL Baso # (Auto) 0.0 (0.0-0.1) 10^3/uL Abs Immat Gran (auto) 0.02 (0.00-0.03) 10^3/uL Imm/Tot Granulo (auto) 0.3 (0.0-0.5) % Sodium 139 (136-145) mmol/L Potassium 2.5 L* (3.5-5.1) mmol/L Chloride 104 (98-107) mmol/L Carbon Dioxide 27.8 (21.0-32.0) mmol/L Anion Gap 9.7 BUN 19.0 H (7.0-18.0) mg/dL Creatinine 1.34 H (0.55-1.02) mg/dL Est GFR ( Amer) 49 L (>=60 mL/min/1.73m^2) Est GFR (Non-Af Amer) 40 L (>=60 mL/min/1.73m^2) BUN/Creatinine Ratio 14.2 Glucose 131 H (74-106) mg/dL Calcium 9.7 (8.5-10.1) mg/dL Magnesium 0.9 L* (1.8-2.4) mg/dL Total Bilirubin 0.3 (0.2-1.0) mg/dL AST 20 (15-37) U/L ALT 26 (14-59) U/L Alkaline Phosphatase 79 (46-116) U/L Troponin I High Sens 11.9 16.2 (4.0-51.3) pg/mL C-Reactive Protein 0.89 H (<=0.50) mg/dL Total Protein 6.7 (6.4-8.2) g/dL Albumin 3.2 L (3.4-5.0) g/dL Globulin 3.5 g/dL Albumin/Globulin Ratio 0.9 Lipase 36.0 (16.0-77.0) U/L Imaging Data XR Acute Abdominal Series: Attestation: I have reviewed the pertinent imaging results. Radiologist's impression: Impression from a board-certified radiologist reveals mild retained colonic stool without any acute process in the chest. CT maxilofacial: Attestation: I have reviewed the pertinent imaging results. Radiologist's impression: Enlargement of the nasal turbinate mucosa with resultant airway narrowing this can be seen in clinical setting of rhinitis. There is no finding to suggest acute sinusitis. ECG Data Attestation: ?I have reviewed the pertinent ECG results. ECG interpretation date: 03/25/25 ECG interpretation time: 22:24 Ischemic changes: non-specific ST-T wave changes Interpretation: Twelve-lead EKG: Twelve-lead EKG reveals a sinus rhythm with ventricular rate of 79 bpm. The HI interval and QRS duration are normal. QTc is not prolonged. Poor R wave progression in the septal leads. Patient has nonspecific T wave changes in the lateral leads. No evidence of ST segment elevation or depression suggestive of infarction or ischemia. I did compare this to the ZOLL defibrillator twelve-lead report from transfer and that is also unremarkable. Heart Score History: Slightly/Non-Suspicious ECG: NS Repolarization Age: >45-<65 years Risk Factors: 1 or 2 Risk Factors Troponin: <3X Normal Limit Total Heart Score Recommendations & Risks:: 4 Discharge Plan Discharge Chief Complaint: Chest Pain Clinical Impression: Chest pain, Hypokalemia, Hypomagnesemia, Acute rhinitis, Diarrhea Prescriptions / Home Meds: No Action metformin 500 mg tablet 500 mg PO BID aspirin 81 mg capsule 81 mg PO DAILY rosuvastatin 40 mg tablet 40 mg PO DAILY quetiapine [Seroquel] 100 mg tablet 100 mg PO .QHS Rx Instructions: AT HS carvedilol 25 mg Tablet 25 mg PO TID Qty: 90 11RF isosorbide mononitrate 60 mg Tablet Extended Release 24 Hr 60 mg PO BID lorazepam [Ativan] 1 mg tablet 1 mg PO Q6H PRN (Reason: anxiety) hydralazine 50 mg tablet 50 mg PO TID PRN (Reason: hypertension) Rx Instructions: States takes it if syst>150 Invokana 300 mg tablet 300 mg PO DAILY Qty: 30 11RF pantoprazole [Protonix] 40 mg tablet,delayed release (DR/EC) 40 mg PO BID Qty: 60 11RF ondansetron 4 mg tablet,disintegrating 4 mg PO Q6H PRN (Reason: nausea and vomiting) Qty: 20 0RF sulfamethoxazole-trimethoprim [Bactrim DS] 800-160 mg tablet 1 tab PO BID 10 Days Qty: 20 0RF cephalexin 500 mg capsule 500 mg PO QID 10 Days Qty: 40 0RF clopidogrel 75 mg tablet 75 mg PO DAILY Print Language: Bolivian Referrals: Carlito Murillo MD [Primary Care Provider, Family Practice] - 1 week
[2025-03-26] MEDS: MAGNESIUM SULFATE IN WATER 2 GM/50 ML PREMIX IV (02:42)
--- NOTE | 2025-03-26 04:21 | PC.NURSE ---
i gave this patient verbal and written discharge orders and this patient voices yes to understanding these. at time of discharge this patient voices no concerns and shows no signs of distress. this patient voices that her daughter will be taking her home
== END 2025-03-26 04:16 | disposition home or self-care (01) ==
PROVIDERS: Emergency Provider Emergency Medicine; PCP Family Medicine
DX: R07.9 Chest pain, unspecified (principal); E87.6 Hypokalemia; E83.42 Hypomagnesemia; R19.7 Diarrhea, unspecified; R42 Dizziness and giddiness; J00 Acute nasopharyngitis [common cold]; I25.10 Atherosclerotic heart disease of native coronary artery without angina pectoris; E11.9 Type 2 diabetes mellitus without complications; E78.5 Hyperlipidemia, unspecified; I10 Essential (primary) hypertension; Z79.84 Long term (current) use of oral hypoglycemic drugs; Z95.5 Presence of coronary angioplasty implant and graft; Z90.49 Acquired absence of other specified parts of digestive tract; Z98.51 Tubal ligation status; Z87.891 Personal history of nicotine dependence
CPT/HCPCS: 36415; 70487; 74022; 80053; 83690; 83735; 84484; 85025; 86140; 93005; 96361; 96365; 96366; 96368; 96375; 99285; J2270; J2405; J3475; J3480; Q9967

== ENCOUNTER 2025-03-30 09:09 | Outpatient (OUT) | payer MEDICAID, SELFPAY ==
[2025-03-30 09:52] LABS: Alanine Aminotransferase 23 U/L (14-59); Albumin Globulin Ratio 0.9; Albumin Level 3.2 g/dL (3.4-5.0); Alkaline Phosphatase 75 U/L (46-116); Anion Gap 12.4; Aspartate Amino Transferase 20 U/L (15-37); BUN Creatinine Ratio 13.6; Bilirubin Total 0.4 mg/dL (0.2-1.0); Calcium 9.2 mg/dL (8.5-10.1); Carbon Dioxide 30.7 mmol/L (21.0-32.0); Chloride 101 mmol/L (98-107); Estimated GFR (African America 50 (>=60 mL/min/1.73m^2); Estimated GFR (Non-African Ame 41 (>=60 mL/min/1.73m^2); Globulin 3.5 g/dL; Glucose 99 mg/dL (74-106); Magnesium 1.2 mg/dL (1.8-2.4); Potassium 3.1 mmol/L (3.5-5.1); Sodium 141 mmol/L (136-145); Total Protein 6.7 g/dL (6.4-8.2)
== END 2025-03-30 09:10 | disposition home or self-care (01) ==
LOC: LAB 09:11
PROVIDERS: PCP Family Medicine; Visit Provider Family Medicine
DX: E83.42 Hypomagnesemia (principal); I16.0 Hypertensive urgency
CPT/HCPCS: 36415; 80053; 83735

== ENCOUNTER 2025-04-01 16:40 | Emergency (ER) | payer MEDICAID, SELFPAY ==
[2025-04-01 16:53] VITALS: BP 148/66; PULSE 82; TEMP 36.6; O2SAT 97; BMI 34.5
--- OUTSIDE RECORDS SUMMARY | 2025-04-01 17:26 | XMS_ITS | CCD ---
Author Organization [facility] Care Team Providers Care Lymphedema Therapist Name Role Phone Kendra Moran Primary Care Physician Umm LANDON Attending Unavailable NILLUmm Attending Unavailable [...] Unavailable HOY, KENDRA M Primary Care Unavailable HORANI, NONA Referring Unavailable OMBALLI, JEFFREYAMED Attending Unavailable JODEHFENG Referring Unavailable MOUKARBELGOMEZ Attending Unavailable TOFLINSKI, FEDERICA Referring Unavailable TAO NASSAR Attending Unavailable HORANI, NONA Admitting Unavailable JOSE BETANCUR Referring Unavailable HERMINIA JULIAN Attending Unavailable OMBALLI, MOHAMED Referring Unavailable OMBALLI, MOHAMED Referring Unavailable MAC, MESERET Referring Unavailable JODEHFENG Attending Unavailable STEPHENBIJAN Marcelino Attending Unavailable MOUKARBEL, GOMEZ Attending Unavailable JODEH, FENG Attending Unavailable JODEH, FENG Attending Unavailable MOUKARBEL, GOMEZ Attending Unavailable STEPHEN, BIJAN Attending Unavailable JODEH, FENG Attending Unavailable OMBALLI, JEFFREYAMED Attending Unavailable HORANI, NONA Referring Unavailable HOY, KENDRA Referring Unavailable HORANI, NONA Attending Unavailable HORANI, NONA Admitting Unavailable HORANI, NONA Referring Unavailable PIRFELECIA ROBBINS Referring Unavailable JULIANHERMINIA Referring Unavailable HORANI, NONA Referring Unavailable TOFLINSKI, FEDERICA Referring Unavailable Allergies Allergy Classification Reported Allergen(s) Allergy Type Date of Onset Reaction(s) Facility (1 source) No Known Medication Allergies; Translations: [No Known Medication Allergies] Propensity to adverse reactions (disorder) [facility] Repository (4 sources) ALPRAZolam; Translations: [ALPRAZOLAM] Drug Allergy 4 Abnormal Behavior [facility] Repository (5 sources) amLODIPine; Translations: [AMLODIPINE] Drug Allergy 4 Other (See Comments) [facility] Repository (5 sources) Lisinopril; Translations: [LISINOPRIL] Drug Allergy 4 Cough [facility] Repository (1 source) LORazepam Drug Allergy 5 Unknown Reaction [facility] Medications Current Medications Medication Drug [...] Coronary arteriosclerosis; Translations: [Atherosclerotic heart disease of [place] coronary artery without angina pectoris] Onset: 3 09-30-2022 Chronic Coronary atherosclerosis and other heart disease (2 sources) Presence of coronary angioplasty implant and graft; Translations: [Presence of coronary angioplasty implant and graft] Onset: 5 Episodic Diabetes mellitus without complication (2 sources) [...] artery; Translations: [Atherosclerosis of renal artery] Onset: 5 Chronic Residual codes; unclassified (2 sources) Obstructive [...] Translations: [Kidney stone] Onset: 11-26-2022 12-20-2019 Episodic Complications of surgical procedures or medical care (2 sources) Unspecified adverse effect of drug or medicament, initial encounter; Translations: [Unspecified adverse effect of drug or medicament, initial encounter] Onset: 07-18-2024 Episodic Fluid and electrolyte disorders (2 sources) Hypokalemia; Translations: [Hypokalemia] Onset: 07-11-2024 Episodic Inflammatory diseases of female pelvic organs (1 source) Bacterial vaginosis; Translations: [Acute vaginitis] Onset: 10-18-2017 10-18-2017 Episodic Nonspecific chest pain (2 sources) Chest pain, unspecified; Translations: [Chest pain, unspecified] Onset: 06-29-2024 Episodic Other aftercare (1 source) MCC (current) use of aspirin; Translations: [FPC CURRENT USE OF ASPIRIN] Onset: 11-26-2022 Episodic Other aftercare (1 source) Other chcf (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 therapy; Translations: [OTH FPC CURRENT [...] pulmonary nodule; Translations: [Solitary pulmonary nodule] Onset: 10-26-2024 Episodic Other lower respiratory disease (2 sources) [...] unspecified; Translations: [EDEMA UNSPECIFIED] Onset: 09-28-2022 Episodic Residual codes; unclassified (1 source) Pain, unspecified; Translations: [Pain, unspecified] Onset: 07-20-2024 Episodic Screening and history of mental health and substance abuse codes (1 source) Personal history of nicotine dependence; Translations: [PERSONAL HISTORY OF NICOTINE DEPEND] Onset: 11-26-2022 Episodic Syncope (2 sources) Syncope and collapse; Translations: [Syncope and collapse] Onset: 07-18-2024 Episodic Unclassified (2 sources) Drug therapy finding 09-30-2022 Unclassified (1 source) Resistant hypertension; Translations: [Resistant hypertension] Onset: 01-02-2025 Unclassified (1 source) Obesity, class 2; Translations: [Obesity, class 2] Onset: 08-29-2024 Results Test Name Value Interpretation Reference Range Facility 29on 2025 29 Addended by: FENG CHRISTIE on: 03/02/2025 09:34 AM Modules accepted: Orders [facility] 03-02-2025 36 Called patient over the phone at 9:10 AM - I have reviewed results from adrenal venous sampling performed on 02/07/2025 at [facility]. 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 Please call patient and let her know that I've requested the test results from [facility] ([facility]) Ill be able to discuss the results with her tomorrow Thank you [facility] 02-26-2025 36 Patient called regarding IR venography she had done 02/07. Requesting to discuss results and how she should follow up per Dr. Christie [facility] Office Visiton 02-26-2025 Follow-up visit [id number] Aby Madrigal 1965 F Date Provider Department Center 02/26/2025 [facility] Family History Problem Relation Age of Onset Lung cancer Mother Accidental Father Lung cancer Sister Family Status - Relation Status Age at Mother Father Sister Brother Alive Level of Service:13089 [place] OFFICE/OUTPATIENT ESTABLISHED LOW MDM 20 MIN [facility] Telephoneon 02-26-2025 Telephone [id number] Aby Madrigal 1965 F Date Provider Department Center 02/26/2025 JESYS MATSON [facility] NEPH [facility] Family History Problem Relation Age of Onset Lung cancer Mother Accidental Father Lung cancer Sister Family Status - Relation Status Age at Mother Father Sister Brother Alive [facility] Cortisol [Mass/Vol]on 2024 CORTISOL 5.2 ug/dL Normal [facility] Comment on above: Result Comment: Due to the diurnal variation of cortisol levels in normal subjects, all cortisol measurements should be referenced to the time of day of sample collection. AM Cortisol Age>=6 6.7-22.4 ug/dL PM Cortisol Age>=6 <10 ug/dL Performed By: #### 2 143-6 #### [facility] ([id number]) [address] [place] [address], [place] [address] CORTISOL 5.2 ug/dL Normal [facility] Comment on above: Result Comment: Due to the diurnal variation of cortisol levels in normal subjects, all cortisol measurements should be referenced to the time of day of sample collection. AM Cortisol Age>=6 6.7-22.4 ug/dL PM Cortisol Age>=6 <10 ug/dL Performed By: #### 2 143-6 #### [facility] ([id number]) [address] [place] [address], [address] [place] [address] CORTISOL 10.9 ug/dL Normal [facility] Comment on above: Result Comment: Due to the diurnal variation of cortisol levels in normal subjects, all cortisol measurements should be referenced to the time of day of sample collection. AM Cortisol Age>=6 6.7-22.4 ug/dL PM Cortisol Age>=6 <10 ug/dL Performed By: #### 2 143-6 #### [facility] ([id number]) [address], [address] [place] [address] CORTISOL 11.1 ug/dL Normal [facility] Comment on above: Result Comment: Due to the diurnal variation of cortisol levels in normal subjects, all cortisol measurements should be referenced to the time of day of sample collection. AM Cortisol Age>=6 6.7-22.4 ug/dL PM Cortisol Age>=6 <10 ug/dL Performed By: #### 2 143-6 #### [facility] ([id number]) [address], [address] [place] [address] CORTISOL 5.7 ug/dL Normal [facility] Comment on above: Result Comment: Due to the diurnal variation of cortisol levels in normal subjects, all cortisol measurements should be referenced to the time of day of sample collection. AM Cortisol Age>=6 6.7-22.4 ug/dL PM Cortisol Age>=6 <10 ug/dL Performed By: #### 2 143-6 #### [facility] ([id number]) [address], [address] [place] [address] CORTISOL 14.3 ug/dL Normal [facility] Comment on above: Result Comment: Due to the diurnal variation of cortisol levels in normal subjects, all cortisol measurements should be referenced to the time of day of sample collection. AM Cortisol Age>=6 6.7-22.4 ug/dL PM Cortisol Age>=6 <10 ug/dL Performed By: #### 2 143-6 #### [facility] ([id number]) [address] [facility], [address] ORDERon 025 TEST NAME AIVC INFERIOR VENA CAVA Normal [facility] Comment on above: Result Comment: Cody ected on 02/07 AT 1204: Previously reported as INFERIOR VENA CAVA TEST RESULT SEE COMMENTS 02/10/2025 12:12 AM Normal [facility] Comment on above: Result Comment: NOTE Test Result Flag Unit RefValue Aldosterone, IVC <4.0 ng/dL Not applicable ADDITIONAL INFORMATION This test was developed and its performance characteristics determined by [facility] in a manner consistent with CLIA requirements. This test has not been cleared or approved by the U.S. Food and Drug Administration. Test Performed by: [facility] [address] [place] [address] Bus Driver/Monitor: Shawanda Jimenez Ph.D.; CLIA# [id number] Result Comment: NOTE Test Result Flag Unit RefValue Aldosterone, LAV 32 ng/dL Not applicable ADDITIONAL INFORMATION This test was developed and its performance characteristics determined by [facility] in a manner consistent with CLIA requirements. This test has not been cleared or approved by the U.S. Food and Drug Administration. Test Performed by: [facility] [place] [address] Bus Driver/Monitor: Shawanda Jimenez Ph.D.; CLIA# [id number] Result Comment: NOTE Test Result Flag Unit RefValue Aldosterone, LAV 28 ng/dL Not applicable ADDITIONAL INFORMATION This test was developed and its performance characteristics determined by [facility] in a manner consistent with CLIA requirements. This test has not been cleared or approved by the U.S. Food and Drug Administration. Test Performed by: [facility] [place] [address] Bus Driver/Monitor: Shawanda Jimenez Ph.D.; CLIA# [id number] Result Comment: NOTE Test Result Flag Unit RefValue Aldosterone, KELLEY <4.0 ng/dL Not applicable ADDITIONAL INFORMATION This test was developed and its performance characteristics determined by [facility] in a manner consistent with CLIA requirements. This test has not been cleared or approved by the U.S. Food and Drug Administration. Test Performed by: [facility] [place] [address] Bus Driver/Monitor: Shawanda Jimenez Ph.D.; CLIA# [id number] Result Comment: NOTE Test Result Flag Unit RefValue Aldosterone, KELLEY 74 ng/dL Not applicable ADDITIONAL INFORMATION This test was developed and its performance characteristics determined by [facility] in a manner consistent with CLIA requirements. This test has not been cleared or approved by the U.S. Food and Drug Administration. Test Performed by: [place] [address] Bus Driver/Monitor: Shawanda Jimenez Ph.D.; CLIA# [id number] TEST NAME ALAV LEFT ADRENAL Normal [facility] TEST NAME ALAV LEFT ADRENAL Normal [facility] TEST NAME ARAV RIGHT ADRENAL Normal [facility] TEST NAME ARAV RIGHT ADRENAL Normal [facility] Telephoneon 01-18-2025 Telephone [id number] EmmadamianAby spence Cristina 1965 F Date Provider Department [place] 01/18/202581612-FMYQQFENG [facility] Family History Problem Relation Age of Onset Lung cancer Mother Accidental Father Lung cancer Sister Family Status - Relation Status Age at Mother Father Sister Brother Alive [facility] Follow-Upon 01-09-2025 Follow-Up [id number] EmmadamianAby spence S 1965 F Date Provider Department [place] 01/09/202562905-[id number] [facility] Family History Problem Relation Age of Onset Lung cancer Mother No Known Problems Father Lung cancer Sister Family Status - Relation Status Age at Mother Father Sister Level of Service:83003 [place] OFFICE/OUTPATIENT ESTABLISHED LOW MDM 20 MIN [facility] 36on 01-04-2025 36 Called patient's daughter [...] time. Melanie thanked me for the call [facility] 36on 01-03-2025 36 Voicemail. Patient's daughter called in, she thought Dr. Christie was going to order testing where they go in through the groin to see which kidney is dumping off excess hormones, she would like a call back. [facility] Telephoneon 01-03-2025 Telephone [id number] Aby Madrigal 1965 F Date Provider Department Center 01/03/2025 [id number], [facility] ENDOCR [facility] Family History Problem Relation Age of Onset Lung cancer Mother No Known Problems Father Lung cancer Sister Family Status - Relation Status Age at Mother Father Sister [facility] ALDOSTERONEon 01-02-2025 ALDOSTERONE (NG/DL) IN SER/PLAS 7.3 ng/dL [facility] Comment on above: Result Comment: INTE [...] reference intervals for this test in the [facility] Test Directory (CHARMS PPEC). Performed By: [facility] [address] [place] [address] Qualitative Executive Researcher: Navneet Simeon MD, PhD CLIA Number: [id number] Performed By: #### L [id number] #### [facility] (BEAKER) [address] [place] [address] ALDOSTERONE (NG/DL) IN SER/PLAS 14.2 ng/dL [facility] Comment on above: Result Comment: INTE [...] reference intervals for this test in the [facility] Test Directory (CHARMS PPEC). Performed By: [facility] [address] [place] [address] Qualitative Executive Researcher: Navneet Simeon MD, PhD CLIA Number: [id number] Performed By: #### L [id number] #### [facility] (BEAKER) [address] [place] [address] CORTISOLon 01-02-2025 CORTISOL (UG/DL) IN SER/PLAS 3.6 ug/dL Normal 0-9 [facility] Comment on above: Performed By: #### L [id number] #### [facility] (BEAKER) [address] [place] [address] CORTISOL (UG/DL) IN SER/PLAS 9.0 ug/dL Normal 6-23 [facility] Comment on above: Performed By: #### L [id number] #### [facility] (BEAKER) [address] [place] [address] NURSNOTEon 01-02-2025 NURSNOTE [id number], at this ti me VS taken, IV [...] pt up to BR and released. [facility] POTASSIUMon 01-02-2025 Potassium [Moles/Vol] 3.9 mmol/L Normal 3.5-5.1 [facility] Comment on above: Performed By: #### L [id number] ####[facility] ([facility])[address] [place] [address] Potassium [Moles/Vol] 4.0 mmol/L Normal 3.5-5.1 [facility] Comment on above: Performed By: #### L [id number] #### [facility] ([facility]) [address] [place] [address] RENIN ACTIVITYon 01-02-2025 RENIN ACTIVITY <0.1 [facility] Comment on above: Result Comment: INTE [...] developed and its performance characteristics determined by [facility]. It has not been cleared or approved by the US Food and Drug Administration. This test was performed in a CLIA certified laboratory and is intended for clinical purposes. Performed By: [facility] [address] [place] [address] Qualitative Executive Researcher: Navneet Simeon MD, PhD IA Number: [id number] Performed By: #### L [id number] #### [facility] (BEAKER) [address] [place] [address] RENIN ACTIVITY <0.1 [facility] Comment on above: Result Comment: INTE [...] developed and its performance characteristics determined by [facility]. It has not been cleared or approved by the US Food and Drug Administration. This test was performed in a CLIA certified laboratory and is intended for clinical purposes. Performed By: [facility] [address] [place] [address] Qualitative Executive Researcher: Navneet Simeon MD, PhD CLIA Number: [id number] Performed By: #### L [id number] #### [facility] (BEAKER) [address] [place] [address] Orders Onlyon 01-01-2025 Orders Only [id number] Aby Madrigal 1965 F Date Provider Department Center 01/01/2025 RAMU KONG [facility] 2A Second Fl Family History Problem Relation Age of Onset Lung cancer Mother No Known Problems Father Lung cancer Sister Family Status - Relation Status Age at Mother Father Sister [facility] Orders Only [id number] Strausbaugh,Aby S 1965 F Date Provider Department Center 01/01/2025 [id number] NIELSEN [facility] 2A Second Fl Family History Problem Relation Age of Onset Lung cancer Mother No Known Problems Father Lung cancer Sister Family Status - Relation Status Age at Mother Father Sister [facility] Orders Onlyon 12-26-2024 Orders Only [id number] Strausbaugh,Aby S 1965 F Date Provider Department Center 12/26/2024 [id number] WILKERSON [facility] 2A Second Fl Family History Problem Relation Age of Onset Lung cancer Mother No Known Problems Father Lung cancer Sister Family Status - Relation Status Age at Mother Father Sister [facility] Orders Only [id number] Strausbaugh,Aby S 1965 F Date Provider Department Center 12/26/2024 [id number] BLACKMAN [facility] 2A Second Fl Family History Problem Relation Age of Onset Lung cancer Mother No Known Problems Father Lung cancer Sister Family Status - Relation Status Age at Mother Father Sister [facility] Orders Only [id number] Strausbaugh,Aby S 1965 F Date Provider Department Center 12/26/2024 USHA LARSON [facility] 2A Second Fl Family History Problem Relation Age of Onset Lung cancer Mother No Known Problems Father Lung cancer Sister Family Status - Relation Status Age at Mother Father Sister [facility] 36on 12-25-2024 36 Patient has not hear d from the [facility] about scheduling this, she is going to reach out to them directly, but could someone reach out to the [facility] about what's going on? [facility] Orders Onlyon 12-25-2024 Orders Only [id number] Strausbaugh,Aby S 1965 F Date Provider Department Center 12/25/2024 175GIBSON NIELSEN [facility] 2A Second Fl Family History Problem Relation Age of Onset Lung cancer Mother No Known Problems Father Lung cancer Sister Family Status - Relation Status Age at Mother Father Sister [facility] Orders Only [id number] Strausbaugh,Aby S 1965 F Date Provider Department Center 12/25/2024 JOSE SALDIVAR INF DCC Family History Problem Relation Age of Onset Lung cancer Mother No Known Problems Father Lung cancer Sister Family Status - Relation Status Age at Mother Father Sister [facility] 36on 12-12-2024 36 Antonio I signed the orders for saline infusion test back on Oct 12 (its a Therapy Plan) Can we call the [facility] and ask what more do they need to get the patient scheduled thanks [facility] 36on 12-08-2024 36 Patient had not hear d from the [facility] about scheduling a Saline Infusion Test, when I look into the chart, I cannot find any orders [facility] Telephoneon 12-08-2024 Telephone [id number] Aby Madrigal S 1965 F Date Provider Department Center 12/08/2024 [id number], [facility] ENDOCR [facility] Family History Problem Relation Age of Onset Lung cancer Mother No Known Problems Father Lung cancer Sister Family Status - Relation Status Age at Mother Father Sister [facility] Abstracton 11-21-2024 Abstract [id number] Aby Madrigal S 1965 F Date Provider Department Center 11/21/202491531-[id number]-CCRDARA CARTER ONC DCC Family History Problem Relation Age of Onset Lung cancer Mother No Known Problems Father Lung cancer Sister Family Status - Relation Status Age at Mother Father Sister [facility] CT CHEST WO IV CONTRASTon CT [...] Marlon Green MD. 5 Invalid Interpretation Code [facility] Office Visiton 10-26-2024 Follow-up visit [id number] Aby Madrigal 1965 F Date Provider Department Center 10/26/2024 [id number] VIRAMONTES DCC ONC DCC Family History Problem Relation Age of Onset Lung cancer Mother No Known Problems Father Lung cancer Sister Family Status - Relation Status Age at Mother Father Sister Level of Service:13504 [place] OFFICE/OUTPATIENT ESTABLISHED SF MDM 10 MIN () Reason for Visit and Comments: Follow-up [[id number]] - F/U to review CT scan that was done today. [facility] 29on 10-03-2024 29 Addended by: FENG CHRISTIE on: 10/12/2024 10:02 AM Modules accepted: Orders [facility] 37on 10-03-2024 37 It was good [...] a saline infusion test at the [facility] they will be in contact with you likely within the next week. This is a 2-hour test in which we infused saline 2 L and assess any changes in your aldosterone level. This is in a monitored setting so you will not be alone. [facility] Follow-Upon 10-03-2024 Follow-Up [id number] Aby Madrigal 1965 F Date Provider Department Center 10/03/2024 [id number], [facility] ENDOCR [facility] Family History Problem Relation Age of Onset Lung cancer Mother No Known Problems Father Lung cancer Sister Family Status - Relation Status Age at Mother Father Sister Level of Service:87603 [place] OFFICE/OUTPATIENT ESTABLISHED MOD MDM 30 MIN Reason for Visit and Comments: Follow-up [[id number]] [facility] Office Visiton 09-04-2024 Follow-up visit [id number] Aby Madrigal 1965 F Date Provider Department Center 09/04/2024 [facility] Family History Problem Relation Age of Onset Lung cancer Mother No Known Problems Father Lung cancer Sister Family Status - Relation Status Age at Mother Father Sister Level of Service:33435 [place] OFFICE/OUTPATIENT ESTABLISHED MOD MDM 30 MIN [facility] ALDOSTERONEon 08-29-2024 ALDOSTERONE (NG/DL) IN SER/PLAS 13.0 ng/dL [facility] Comment on above: Result Comment: INTE [...] reference intervals for this test in the [facility] Test Directory (CHARMS PPEC). Performed By: [facility] [address] [place] [address] Qualitative Executive Researcher: Navneet Simeon MD, PhD CLIA Number: [id number] Performed By: #### L [id number] #### [facility] (BEAKER) [address] [place] [address] Ron 08-29-2024 ALT [Catalytic activity/Vol] 25 U/L Normal 7-52 [facility] Comment on above: Performed By: #### L [id number] #### [facility] (BEAKER) [address] [place] [address] Riki 08-29-2024 AST [Catalytic activity/Vol] 21 U/L Normal 13-39 [facility] Comment on above: Performed By: #### L [id number] #### [facility] (BEAKER) [address] [place] [address] BASIC METABOLIC PANELon 10-0 Anion gap [Moles/Vol] 12 mmol/L Normal 7-20 [facility] Comment on above: Performed By: #### L [id number] ####[facility] ([facility])[address] [place] [address] Calcium [Mass/Vol] 9.3 mg/dL Normal 8.6-10.3 [facility] Comment on above: Performed By: #### L [id number] ####[facility] ([facility] [place] [address] Chloride [Moles/Vol] 105 mmol/L Normal 98-107 [facility] Comment on above: Performed By: #### L [id number] ####[facility] ([facility] [place] [address] CO2 [Moles/Vol] 28 mmol/L Normal 21-31 [facility] Comment on above: Performed By: #### L [id number] ####[facility] ([facility] [place] [address] Creatinine [Mass/Vol] 0.95 mg/dL Normal 0.60-1.20 [facility] Comment on above: Performed By: #### L [id number] ####[facility] ([facility] [place] [address] GLOMERULAR FILTRATION RATE ML/MIN/1.73 SQ M.PREDICTED 68.6 mL/min/1.73m*2 Normal >60.0 [facility] Comment on above: Result Comment: [facility]???s estimated glomerular filtration rate (eGFR) will [...] #### L [id number] ####[facility] ([facility])[address] [place] [address] Glucose [Mass/Vol] 99 mg/dL Normal 70-100 [facility] Comment on above: Performed By: #### L [id number] ####[facility] ([facility])[address] [place] [address] Potassium [Moles/Vol] 3.6 mmol/L Normal 3.5-5.1 [facility] Comment on above: Performed By: #### L [id number] ####[facility] ([facility])[address] [place] [address] Sodium [Moles/Vol] 141 mmol/L Normal 136-145 [facility] Comment on above: Performed By: #### L [id number] ####[facility] ([facility])[address] [place] [address] Urea nitrogen [Mass/Vol] 19 mg/dL Normal 7-25 [facility] Comment on above: Performed By: #### L [id number] ####[facility] ([facility])[address] [place] [address] UREA NITROGEN/CREATININE (MASS RATIO) IN SER/PLAS 20.0 Normal [facility] Comment on above: Performed By: #### L [id number] ####[facility] ([facility])[address] [place] [address] CORTISOLon 08-29-2024 CORTISOL (UG/DL) IN SER/PLAS 6.1 ug/dL Normal 0-9 [facility] Comment on above: Performed By: #### L [id number] ####[facility] ([facility])[address] [place] [address] CT ABDOMEN PELVIS W AND WO I [...] Marybeth Bryan. [address] Invalid Interpretation Code [facility] DEXAMETHASONE LEVELon 2023 DEXAMETHASONE <50.0 Normal [facility] Comment on above: Order Comment: Blood [...] developed and its performance characteristics determined by [facility]. It has not been cleared or approved by the US Food and Drug Administration. This test was performed in a CLIA certified laboratory and is intended for clinical purposes. Performed By: [facility] [address] [place] [id number] Qualitative Executive Researcher: Navneet Simeon MD, PhD CLIA Number: [id number] Performed By: #### L [id number] #### [facility] ([facility]) [address] [place] [address] LIPID PANELon 08-29-2024 CHOL/HDL 2.4 mg/dL Normal [facility] Comment on above: Performed By: #### L [id number] #### [facility] ([facility]) [address] [place] [address] Cholesterol [Mass/Vol] 80 mg/dL Low 120-200 [facility] Comment on above: Performed By: #### L [id number] #### [facility] ([facility]) [address] [place] [address] Magnesium [Mass/Vol] 96 mg/dL Normal 40-149 [facility] Comment on above: Result Comment: TRIG LYCERIDE REFERENCE RANGE: 20 YEARS AND OLDER CARDIOVASCULAR RISK LESS THAN 150 mg/dL LOW RISK 150 TO 199 mg/dL BORDERLINE RISK 200 mg/dL AND GREATER HIGH RISK Performed By: #### L [id number] #### [facility] ([facility]) [address] [place] [address] Magnesium [Mass/Vol] 28 mg/dL Normal 0-160 [facility] Comment on above: Performed By: #### L [id number] #### [facility] ([facility]) [address] [place] [address] Magnesium [Mass/Vol] 33 mg/dL Normal 23-92 [facility] Comment on above: Performed By: #### L [id number] #### [facility] ([facility]) [address] [place] [address] NON HDL CHOL. (LDL+VLDL) 47 Normal [facility] Comment on above: Performed By: #### L [id number] #### [facility] ([facility]) [address] [place] [address] TOTAL VLDL-C 19 mg/dL Normal 0-40 [facility] Comment on above: Performed By: #### L [id number] #### [facility] ([facility] [address] [place] [address] Labon 08-29-2024 Lab [id number] Aby Madrigal 1965 F Date Provider Department Center 08/29/2024 2245-[facility] LAB RESOURCE [facility] [place] [facility] Family History Problem Relation Age of Onset Lung cancer Mother No Known Problems Father Lung cancer Sister Family Status - Relation Status Age at Mother Father Sister [facility] RENIN ACTIVITYon 08-29-2024 RENIN ACTIVITY <0.1 Normal [facility] Comment on above: Result Comment: INTE RPRETIVE INFORMATION: Renin Activity Adult, Normal sodium diet: Supine ................. 0.2-1.6 ng/mL/hr Upright ................ 0.5-4.0 ng/mL/hr Children, Normal sodium diet, Supine: Penrose (1-7 days) ..... 2.0-35.0 ng/mL/hr Cord blood [...] developed and its performance characteristics determined by [facility]. It has not been cleared or approved by the US Food and Drug Administration. This test was performed in a CLIA certified laboratory and is intended for clinical purposes. Performed By: [facility] [address] [place] [address] Qualitative Executive Researcher: Navneet Simeon MD, PhD CLIA Number: [id number] Performed By: #### L [id number] #### [facility] ([facility]) [address] [place] [address] 36on 08-10-2024 36 Updated patient on Nodify blood test results and plan for f/u CT and appt scheduled for 10/26/24. [facility] Letter (Out)on 08-09-2024 Letter (Out) [id number] Aby Madrigal 1965 F Date Provider Department Center 08/09/2024 None-None [facility] ADMIT None Family History Problem Relation Age of Onset Lung cancer Mother No Known Problems Father Lung cancer Sister Family Status - Relation Status Age at Mother Father Sister [facility] 36on 08-08-2024 36 Called patient over the phone at 9:17 AM - discussed recent lab results from [facility] (including M cortisol of 1.7 after dex, renin undetectable, aldosterone level 4.4) - ruled out autonomous cortisol production - she has stopped spironolactone for about 2 weeks now, continue to hold this until our next appt and we will reassess ARR. We will meet again on Oct 03 She thanked me for the call [facility] Orders Onlyon 08-08-2024 Orders Only [id number] Aby Madrigal 1965 F Date Provider Department Center 08/08/2024 Julio C-RICHA VIRAMONTES DCC ONC DCC Family History Problem Relation Age of Onset Lung cancer Mother No Known Problems Father Lung cancer Sister Family Status - Relation Status Age at Mother Father Sister [facility] Telephoneon 08-08-2024 Telephone [id number] Aby Madrigal 1965 F Date Provider Department Center 08/08/2024 [id number], [facility] ENDOCR [facility] Family History Problem Relation Age of Onset Lung cancer Mother No Known Problems Father Lung cancer Sister Family Status - Relation Status Age at Mother Father Sister [facility] Telemedicineon 07-20-2024 Telemedicine [id number] Aby Madrigal 1965 F Date Provider Department Center 07/20/2024 Julio C-RICHA VIRAMONTES DCC ONC DCC Family History Problem Relation Age of Onset Lung cancer Mother No Known Problems Father Lung cancer Sister Family Status - Relation Status Age at Mother Father Sister Level of Service:31801 [place] PHYS/QHP TELEPHONE EVALUATION 21-30 MIN () Reason for Visit and Comments: New Patient [632] - 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 CT CHEST 04-21-24- PET 06-21-24 Films requested - 07-18-24 HAVING HARD TIME GETTING FILMS FROM [employer] AGAIN. Ginny at [facility] ([phone] direct line) is working on sending them. CHECK [facility] FOR FILMS PLEASE [facility] 37on 07-18-2024 37 It was great [...] lab work done at one of these [facility] Lab Sites The results will then come straight to me I appreciate it [facility] [address], [place] Hours Wednesday - Wednesday 8 AM - 4PM (Closed 12 - 12:30 PM daily) Phone: [facility] [address] Hours: Wednesday - Wednesday 6 AM - 5 PM Wednesday: 7 AM - 2 PM Phone: [address] [place] Hours: Wednesday - Wednesday 7 AM - 3:30 PM Phone: [facility] [address] Hours: Wednesday - Wednesday 7 AM - 5:30 PM Phone: Kayy Maurer [facility] [address], [place] Hours: Wednesday - Wednesday 8 AM - 4:30 PM Phone: [facility] EDNURSon 07-18-2024 EDNURS ADR and relevant inf o reported to [facility] in pharmacy d/t safety net being down. Viet Kelly RN 07/18/24 1139 [facility] EDNURS SENT FROM MD OFFICE RE: LOW BP; RECENT DC FROM [facility] FOR SAME [facility] EDPROVon 07-18-2024 EDPROV HPI Chief Complaint [...] new meds yesterday. History provided by: Patient pen and pencil repairer used: No [place] Coma Scale Score: 15 Patient History Past Medical History: Diagnosis Date Abnormal ECG Diabetes mellitus ([facility]) Hyperlipidemia Hypertension Obstructive sleep apnea Panic attacks Stroke ([facility]) Past Surgical History: Procedure Laterality [...] mouth i (more content not included)... [facility] Office Visiton 07-18-2024 Follow-up visit [id number] Aby Madrigal Cristina 1965 Date Provider Department Center 07/18/2024 [id number] [facility] ENDOCLOS [facility] Family History Problem Relation Age of Onset Lung cancer Mother No Known Problems Father Lung cancer Sister Family Status - Relation Status Age at Mother Father Sister Level of Service:88162 [place] OFFICE/OUTPATIENT NEW MODERATE MDM 45 MINUTES Reason for Visit and Comments: Nodules [Other] [facility] Follow-up visit [id number] EmmadamianAby spence Cristina 1965 Provider Department Center 07/18/[id number]-CKQLHFENG [facility] Family History Problem Relation Age of Onset Lung cancer Mother No Known Problems Father Lung cancer Sister Family Status - Relation Status Age at Mother Father Sister Level of Service:NOCHG [place]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 I am calling you to follow [...] Patient Name Aby Madrigal Date 07/13/24 Normal [facility] Telephoneon 07-13-2024 Telephone [id number] Aby Madrigal 1965 F Date Provider Department Center 07/13/2024 Adela-GINNY GARCIA [facility] Family History Problem Relation Age of Onset Lung cancer Mother No Known Problems Father Lung cancer Sister Family Status - Relation Status Age at Mother Father Sister Reason for Visit and Comments: Hospital Follow-up [832] Normal [facility] 30on 07-12-2024 30 The patient is [...] to address these barriers include . [facility] ANTI-XA (HEPARIN LEVEL)on HEPARIN UNFRACTIONATED (U/ML) IN PPP BY CHROMOGENIC METHOD 0.60 IU/mL Normal 0.3-0.7 [facility] Comment on above: Order Comment: Check anti-Xa level every 6 hours while on heparin infusion, or per protocol. Result Comment: [place] roxaban and Apixaban will interfere with the anti Xa assay used to monitor UFH and LMWH. Performed By: #### L [id number] ####[facility] ([facility])[address] [place] [address] BASIC METABOLIC PANELon 06-23 Anion gap [Moles/Vol] 10 mmol/L Normal 7-20 [facility] Comment on above: Performed By: #### L [id number] #### [facility] ([facility]) [address] [place] [address] Calcium [Mass/Vol] 8.8 mg/dL Normal 8.6-10.3 [facility] Comment on above: Performed By: #### L [id number] #### [facility] ([facility]) [address] [place] [address] Chloride [Moles/Vol] 108 mmol/L High 98-107 [facility] Comment on above: Performed By: #### L [id number] #### [facility] ([facility]) [address] [place] [address] CO2 [Moles/Vol] 27 mmol/L Normal 21-31 [facility] Comment on above: Performed By: #### L [id number] #### [facility] ([facility]) [address] [place] [address] Creatinine [Mass/Vol] 0.89 mg/dL Normal 0.60-1.20 [facility] Comment on above: Performed By: #### L [id number] #### [facility] ([facility]) [address] [place] [address] GLOMERULAR FILTRATION RATE ML/MIN/1.73 SQ M.PREDICTED 74.2 mL/min/1.73m*2 Normal >60.0 [facility] Comment on above: Result Comment: [facility]???s estimated glomerular filtration rate (eGFR) will [...] group of individuals. Performed By: #### L [id number] #### [facility] ([facility]) [address] [place] [address] Glucose [Mass/Vol] 109 mg/dL High 70-100 [facility] Comment on above: Performed By: #### L [id number] #### [facility] ([facility]) [address] [place] [address] Potassium [Moles/Vol] 3.4 mmol/L Low 3.5-5.1 [facility] Comment on above: Performed By: #### L [id number] #### [facility] ([facility]) [address] [place] [address] Sodium [Moles/Vol] 142 mmol/L Normal 136-145 [facility] Comment on above: Performed By: #### L [id number] #### [facility] ([facility]) [address] [place] [address] Urea nitrogen [Mass/Vol] 11 mg/dL Normal 7-25 [facility] Comment on above: Performed By: #### L [id number] #### [facility] ([facility]) [address] [place] [address] UREA NITROGEN/CREATININE (MASS RATIO) IN SER/PLAS 12.4 Normal [facility] Comment on above: Performed By: #### L [id number] #### [facility] ([facility]) [address] [place] [address] CBC WITH AUTO DIFFERENTIALon 07-12-2024 Basophils (Bld) [#/Vol] 0.04 10*3/uL Normal 0.00-0.20 [facility] Comment on above: Performed By: #### L [id number] #### [facility] ([facility]) [address] [place] [address] Basophils/100 WBC (Bld) 0.6 % Normal 0.0-1.0 [facility] Comment on above: Performed By: #### L [id number] #### [facility] ([facility]) [address] [place] [address] Eosinophils (Bld) [#/Vol] 0.22 10*3/uL Normal 0.00-0.50 [facility] Comment on above: Performed By: #### L [id number] #### [facility] ([facility]) [address] [place] [address] Eosinophils/100 WBC (Bld) 3.5 % Normal 0.0-6.0 [facility] Comment on above: Performed By: #### L [id number] #### [facility] [address] [place] [address] Erythrocyte distribution width (RBC) [Ratio] 14.5 % Normal 11.5-15.0 [facility] Comment on above: Performed By: #### L [id number] #### [facility] [address] [place] [address] ERYTHROCYTE MEAN CORPUSCULAR HEMOGLOBIN CONCENTRATION (G/DL) BY AUTOMATED 32.7 g/dL Normal 32.0-35.0 [facility] Comment on above: Performed By: #### L [id number] #### [facility] ([facility] [address] [place] [address] Hematocrit (Bld) [Volume fraction] 34.2 % Low 36.0-48.0 [facility] Comment on above: Performed By: #### L [id number] #### [facility] ([facility]) [address] [place] [address] Hemoglobin (Bld) [Mass/Vol] 11.2 g/dL Low 12.0-15.0 [facility] Comment on above: Performed By: #### L [id number] #### [facility] ([facility]) [address] [place] [address] Immature granulocytes (Bld) [#/Vol] 0.01 10*3/uL Normal 0.00-0.20 [facility] Comment on above: Performed By: #### L [id number] #### [facility] ([facility]) [address] [place] [address] Immature granulocytes/100 WBC (Bld) 0.2 % Normal 0.0-1.0 [facility] Comment on above: Performed By: #### L [id number] #### [facility] ([facility]) [address] [place] [address] Lymphocytes (Bld) [#/Vol] 2.37 10*3/uL Normal 1.20-4.00 [facility] Comment on above: Performed By: #### L [id number] #### [facility] ([facility]) [address] [place] [address] Lymphocytes/100 WBC (Bld) 37.8 % Normal 20.0-45.0 [facility] Comment on above: Performed By: #### L [id number] #### [facility] ([facility]) [address] [place] [address] MCH (RBC) [Entitic mass] 27.4 pg Normal 27.0-33.0 [facility] Comment on above: Performed By: #### L [id number] #### [facility] ([facility]) [address] [address] MCV (RBC) [Entitic vol] 83.6 fL Normal 82.0-98.0 [facility] Comment on above: Performed By: #### L [id number] #### [facility] ([facility]) [address] [place] [address] Monocytes (Bld) [#/Vol] 0.43 10*3/uL Normal 0.10-1.00 [facility] Comment on above: Performed By: #### L [id number] #### [facility] ([facility]) [address] [place] [address] Monocytes/100 WBC (Bld) 6.9 % Normal 5.0-12.0 [facility] Comment on above: Performed By: #### L [id number] #### [facility] ([facility] [address] [place] [address] Neutrophils (Bld) [#/Vol] 3.20 10*3/uL Normal 1.60-7.60 [facility] Comment on above: Performed By: #### L [id number] #### [facility] ([facility]) [address] [place] [address] Neutrophils/100 WBC (Bld) 51.0 % Normal 40.0-72.0 [facility] Comment on above: Performed By: #### L [id number] #### [facility] ([facility]) [address] [place] [address] NRBC (PER 100 WBCS) BY AUTOMATED COUNT 0.0 % Normal 0 [facility] Comment on above: Performed By: #### L [id number] #### [facility] ([facility]) [address] [place] [address] PLATELETS (10*3/UL) IN BLOOD AUTOMATED COUNT 223 10*3/uL Normal 150-400 [facility] Comment on above: Performed By: #### L [id number] #### [facility] ([facility]) [address] [place] [address] RBC (Bld) [#/Vol] 4.09 10*6/uL Normal 3.80-5.00 [facility] Comment on above: Performed By: #### L [id number] #### [facility] ([facility]) [address] [place] [address] WBC (Bld) [#/Vol] 6.27 10*3/uL Normal 4.00-10.60 [facility] Comment on above: Performed By: #### L [id number] #### [facility] ([facility]) [address] [place] [address] MAGNESIUMon 07-12-2024 Magnesium [Mass/Vol] 1.7 mg/dL Low 1.9-2.7 [facility] Comment on above: Performed By: #### L [id number] #### [facility] ([facility]) [address] [place] [address] POCT GLUCOSE METER UNSOLICIT ED RESULTSon 07-12-2024 Glucose [Mass/Vol] 102 mg/dL Normal 70-105 [facility] Comment on above: Order Comment: Waive d Testing in the ED is performed under the ED CLIA certificate #[id number]. Result Comment: brad mora Performed By: #### L [id number] #### [facility] ([facility]) [address] [place] [address] TROPONIN Ion 07-12-2024 Troponin I.cardiac [Mass/Vol] 0.01 ng/mL Normal 0.00-0.04 [facility] Comment on above: Performed By: #### L [id number] #### [facility] ([facility]) [address] [place] [address] 30on 07-11-2024 30 The patient is Moderately [...] and maintained or improved Outcome: Progressing Normal [facility] 30 The patient is Moderately Stable - Low risk of patient condition declining or worsening The patient's goals for the shift include no chest pain The clinical goals for the shift include stable vital/no chest pain Over the shift, the patient did not make progress toward the following goals. Barriers to progression include . Recommendations to address these barriers include . [facility] ALDOSTERONEon 07-11-2024 ALDOSTERONE (NG/DL) IN SER/PLAS 4.9 ng/dL [facility] Comment on above: Result Comment: INTE [...] reference intervals for this test in the [facility] Test Directory ([facility]). Performed By: [facility] [address] [place] [id number] Qualitative Executive Researcher: Navneet Simeon MD, PhD CLIA Number: [id number] Performed By: #### L [id number] #### [facility] ([facility]) [address] [place] [address] ANTI-XA (HEPARIN LEVEL)on HEPARIN UNFRACTIONATED (U/ML) IN PPP BY CHROMOGENIC METHOD 0.42 IU/mL Normal 0.3-0.7 [facility] Comment on above: Order Comment: Waive d Testing in the ED is performed under the ED CLIA certificate #[id number]. Result Comment: Radha roxaban and Apixaban will interfere with the anti Xa assay used to monitor UFH and LMWH. Performed By: #### L [id number] #### [facility] ([facility]) [address] [place] [address] HEPARIN UNFRACTIONATED (U/ML) IN PPP BY CHROMOGENIC METHOD 0.20 IU/mL Low 0.3-0.7 [facility] Comment on above: Order Comment: Check anti-Xa level every 6 hours while on heparin infusion, or per protocol. Result Comment: Radha roxaban and Apixaban will interfere with the anti Xa assay used to monitor UFH and LMWH. Performed By: #### L [id number] #### [facility] ([facility]) [address] [place] [address] APTTon 07-11-2024 ACTIVATED PARTIAL THROMBOPLASTIN TIME IN PPP BY COAGULATION ASSAY 43.0 Seconds High 25.0-35.0 [facility] Comment on above: Result Comment: Clin ical significance of the APTT is questionable in the presence of heparin. Performed By: #### L [id number] #### [facility] ([facility] [address] [place] [address] BASIC METABOLIC PANELon 08- Anion gap [Moles/Vol] 9 mmol/L Normal 7-20 [facility] Comment on above: Performed By: #### L [id number] #### [facility] ([facility] [address] [facility] [place] [address] Calcium [Mass/Vol] 8.8 mg/dL Normal 8.6-10.3 [facility] Comment on above: Performed By: #### L [id number] #### [facility] ([facility] [address] [facility] [place] [address] Chloride [Moles/Vol] 108 mmol/L High 98-107 [facility] Comment on above: Performed By: #### L [id number] #### [facility] ([facility]) [address] [facility] [place] [address] CO2 [Moles/Vol] 28 mmol/L Normal 21-31 [facility] Comment on above: Performed By: #### L [id number] #### [facility] ([facility]) [address] [place] [address] Creatinine [Mass/Vol] 1.09 mg/dL Normal 0.60-1.20 [facility] Comment on above: Performed By: #### L [id number] #### [facility] ([facility] [address] [place] [address] GLOMERULAR FILTRATION RATE ML/MIN/1.73 SQ M.PREDICTED 58.2 mL/min/1.73m*2 Low >60.0 [facility] Comment on above: Result Comment: [facility]???s estimated glomerular filtration rate (eGFR) will [...] individuals. Performed By: #### L [id number] #### [facility] ([facility]) [address] [place] [address] Glucose [Mass/Vol] 113 mg/dL High 70-100 [facility] Comment on above: Performed By: #### L [id number] #### [facility] ([facility]) [address] [place] [address] Potassium [Moles/Vol] 3.4 mmol/L Low 3.5-5.1 [facility] Comment on above: Performed By: #### L [id number] #### [facility] ([facility]) [address] [place] [address] Sodium [Moles/Vol] 142 mmol/L Normal 136-145 [facility] Comment on above: Performed By: #### L [id number] #### [facility] ([facility]) [address] [place] [address] Urea nitrogen [Mass/Vol] 14 mg/dL Normal 7-25 [facility] Comment on above: Performed By: #### L [id number] #### [facility] ([facility]) [address] [place] [address] UREA NITROGEN/CREATININE (MASS RATIO) IN SER/PLAS 12.8 Normal [facility] Comment on above: Performed By: #### L [id number] #### [facility] ([facility]) [address] [place] [address] CBC WITH AUTO DIFFERENTIALon 07-11-2024 Basophils (Bld) [#/Vol] 0.04 10*3/uL Normal 0.00-0.20 [facility] Comment on above: Performed By: #### L [id number] ####[facility] ([facility])[address] [place] [address] Basophils/100 WBC (Bld) 0.6 % Normal 0.0-1.0 [facility] Comment on above: Performed By: #### L [id number] ####[facility] ([facility])[address] [place] [address] Eosinophils (Bld) [#/Vol] 0.16 10*3/uL Normal 0.00-0.50 [facility] Comment on above: Performed By: #### L [id number] ####[facility] ([facility])[address] [place] [address] Eosinophils/100 WBC (Bld) 2.2 % Normal 0.0-6.0 [facility] Comment on above: Performed By: #### L [id number] ####[facility] ([facility])[address] [place] [address] Erythrocyte distribution width (RBC) [Ratio] 14.6 % Normal 11.5-15.0 [facility] Comment on above: Performed By: #### L [id number] ####[facility] ([facility])[address] [place] [address] ERYTHROCYTE MEAN CORPUSCULAR HEMOGLOBIN CONCENTRATION (G/DL) BY AUTOMATED 32.0 g/dL Normal 32.0-35.0 [facility] Comment on above: Performed By: #### L [id number] ####[facility] ([facility])[address] [place] [address] Hematocrit (Bld) [Volume fraction] 36.2 % Normal 36.0-48.0 [facility] Comment on above: Performed By: #### L [id number] ####[facility] ([facility])[address] [place] [address] Hemoglobin (Bld) [Mass/Vol] 11.6 g/dL Low 12.0-15.0 [facility] Comment on above: Performed By: #### L [id number] ####[facility] ([facility])[address] [place] [address] Immature granulocytes (Bld) [#/Vol] 0.02 10*3/uL Normal 0.00-0.20 [facility] Comment on above: Performed By: #### L [id number] ####[facility] ([facility])[address] [place] [address] Immature granulocytes/100 WBC (Bld) 0.3 % Normal 0.0-1.0 [facility] Comment on above: Performed By: #### L [id number] ####[facility] ([facility] [place] [address] Lymphocytes (Bld) [#/Vol] 2.34 10*3/uL Normal 1.20-4.00 [facility] Comment on above: Performed By: #### L [id number] ####[facility] ([facility] [place] [address] Lymphocytes/100 WBC (Bld) 32.6 % Normal 20.0-45.0 [facility] Comment on above: Performed By: #### L [id number] ####[facility] ([facility])[address] [place] [address] MCH (RBC) [Entitic mass] 27.2 pg Normal 27.0-33.0 [facility] Comment on above: Performed By: #### L [id number] ####[facility] ([facility])[address] [place] [address] MCV (RBC) [Entitic vol] 85.0 fL Normal 82.0-98.0 [facility] Comment on above: Performed By: #### L [id number] ####[facility] ([facility])[address] [place] [address] Monocytes (Bld) [#/Vol] 0.49 10*3/uL Normal 0.10-1.00 [facility] Comment on above: Performed By: #### L [id number] ####[facility] ([facility])[address] [place] [address] Monocytes/100 WBC (Bld) 6.8 % Normal 5.0-12.0 [facility] Comment on above: Performed By: #### L [id number] ####[facility] ([facility])[address] [place] [address] Neutrophils (Bld) [#/Vol] 4.13 10*3/uL Normal 1.60-7.60 [facility] Comment on above: Performed By: #### L [id number] ####[facility] ([facility] [place] [address] Neutrophils/100 WBC (Bld) 57.5 % Normal 40.0-72.0 [facility] Comment on above: Performed By: #### L [id number] ####[facility] ([facility])[address] [place] [address] NRBC (PER 100 WBCS) BY AUTOMATED COUNT 0.0 % Normal 0 [facility] Comment on above: Performed By: #### L [id number] ####[facility] ([facility])[address] [place] [address] PLATELETS (10*3/UL) IN BLOOD AUTOMATED COUNT 245 10*3/uL Normal 150-400 [facility] Comment on above: Performed By: #### L [id number] ####[facility] ([facility])[address] [place] [address] RBC (Bld) [#/Vol] 4.26 10*6/uL Normal 3.80-5.00 [facility] Comment on above: Performed By: #### L [id number] ####[facility] ([facility])[address] [place] [address] WBC (Bld) [#/Vol] 7.18 10*3/uL Normal 4.00-10.60 [facility] Comment on above: Performed By: #### L [id number] ####[facility] ([facility] [place] [address] CONSULTon 07-11-2024 CONSULT -- Attestation signed by [...] with plan for outpatient follow up with [place] [facility]ocrinology Meseret Mac MD Cardiology Consult Note Reason for Consult: Chest pain HPI: Aby Madrigal is a 59 y.o. female patient is presenting as a transfer from [facility] for the evaluation of chest pain. Past [...] Diabetes mellitus ([facility]), Hyperlipidemia, Hypertension, Obstructive sleep apnea, Panic attacks, and Stroke ([facility]). Surgical History She has a [...] Value Ventricular Rate 56 Atrial Rate 56 TN Interval 180 QRS DURATION 94 QT Interval 430 QTC (more content not included)... Normal [facility] EDPROVon 07-11-2024 EDPROV HPI Chief Complaint [...] Pt states she was trasnfered here from [place] transferred to cardiology. Pt states she had a cardiac stent placed last week. She denies fever, coughing, vomiting, abdominal pain. She admits diarrhea. She felt better when given ativan and worse when she was given morphine. She has had her gallbladder removed. History provided by: Patient pen and pencil repairer used: No Chest Pain Associated symptoms: no abdominal pain, no cough, no fever and no vomiting [place] Coma Scale Score: 15 Patient History Past [...] signing this emergency patient record, the Emergency Physician/CONFIGURATION MANAGEMENT SPECIALIST/PA-C attests that all entries made into the electronic medical record by the scribe prior to the Physician/CONFIGURATION MANAGEMENT SPECIALIST/PA-C signature reflect an accurate accounting of the evaluation and care rendered by that Emergency Physician/CONFIGURATION MANAGEMENT SPECIALIST/PA-C. The Emergency Physician/CONFIGURATION MANAGEMENT SPECIALIST/PA-C assumes full responsibility for those entries. The Emergency Physician/CONFIGURATION MANAGEMENT SPECIALIST/PA-C also attests that any patient testing or treatment that was instituted by nursing staff. Normal [facility] EDPROV HPI Chief Complaint Patient presents [...] Pt states she was trasnfered here from [place] to be transferred to cardiology. Pt states she had a cardiac stent placed last week. She denies fever, coughing, vomiting, abdominal pain. She admits diarrhea. She felt better when given ativan and worse when she was given morphine. She has had her gallbladder removed. 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 Decision-making details documented in ED Course. ECG/medicine tests: ordered and independent interpretation performed. Decision-making details documented in ED Course. Risk Drug therapy requiring intensive monitoring for toxicity. Decision regarding hospitalization. Minor surgery with identified risk factors. I, Basilia diallo (more content not included)... Invalid Interpretation Code [facility] POCT GLUCOSE METER UNSOLICIT ED RESULTSon 07-11-2024 Glucose [Mass/Vol] 122 mg/dL High 70-105 [facility] Comment on above: Order Comment: Waive d Testing in the ED is performed under the ED CLIA certificate #[id number]. Result Comment: [email or web address] Performed By: #### L [id number] #### [facility] ([employer]) [address] [place] [address] PROTIME-INRon 07-11-2024 INR IN PPP BY COAGULATION ASSAY 1.00 Normal 0.90-1.10 [facility] Comment on above: Result Comment: ACCC [...] CHEST 1995;[id number]. Performed By: #### L [id number] ####[facility] ([employer])[address] [place] [address] PROTHROMBIN TIME (PT) IN PPP BY COAGULATION ASSAY 13.2 Seconds Normal 12.3-14.8 [facility] Comment on above: Performed By: #### L [id number] ####[facility] [employer])[address] [place] [address] RENIN ACTIVITYon 07-11-2024 RENIN ACTIVITY <0.1 Normal [facility] Comment on above: Result Comment: INTE RPRETIVE INFORMATION: Renin Activity Adult, Normal sodium diet: Supine ................. 0.2-1.6 ng/mL/hr Upright ................ 0.5-4.0 ng/mL/hr Children, Normal sodium diet, Supine: Penrose (1-7 days) ..... 2.0-35.0 ng/mL/hr Cord blood [...] developed and its performance characteristics determined by [employer]. It has not been cleared or approved by the US Food and Drug Administration. This test was performed in a CLIA certified laboratory and is intended for clinical purposes. Performed By: [employer] [address] [place] [address] Qualitative Executive Researcher: Navneet Simeon MD, PhD CLIA Number: [id number] Performed By: #### L [id number] #### [facility] ([facility]) [address] [place] [address] TROPONIN Ion 07-11-2024 Troponin I.cardiac [Mass/Vol] 0.01 ng/mL Normal 0.00-0.04 [facility] Comment on above: Performed By: #### L [id number] #### [facility] ([facility]) [address] [place] [address] Office Visiton 07-10-2024 Follow-up visit [id number] Aby Madrigal 1965 F Date Provider Department Center 07/10/2024 [id number] MITCHELL RIAZ [facility] Family History Problem Relation Age of Onset Lung cancer Mother No Known Problems Father Lung cancer Sister Family Status - Relation Status Age at Mother Father Sister Level of Service:22786 [place] OFFICE/OUTPATIENT ESTABLISHED MOD MDM 30 MIN Reason for Visit and Comments: Coronary Artery Disease [187] Post-Cath [731] Normal [facility] 36on 07-03-2024 36 Post Discharge Call Good morning, I am Ginny Garcia, RN a lead nurse from [facility]. I am calling you to follow [...] Patient Name Aby Madrigal Date 07/03/24 Normal [facility] Telephoneon 07-03-2024 Telephone [id number] Aby Madrigal 1965 F Date Provider Department Center 07/03/2024 Adela-GINNY GARCIA [facility] Family History Problem Relation Age of Onset Lung cancer Mother No Known Problems Father Lung cancer Sister Family Status - Relation Status Age at Mother Father Sister Reason for Visit and Comments: Hospital Follow-up [832] Normal [facility] 30on 07-01-2024 30 The patient is [...] and maintained or improved Outcome: Progressing Normal [facility] BASIC METABOLIC PANELon 06-22 Anion gap [Moles/Vol] 14 mmol/L Normal 7-20 [facility] Comment on above: Performed By: #### L [id number] #### [facility] ([facility]) [address] [place] [address] Calcium [Mass/Vol] 8.2 mg/dL Low 8.6-10.3 [facility] Comment on above: Performed By: #### L [id number] #### [facility] ([facility]) [address] [place] [address] Chloride [Moles/Vol] 106 mmol/L Normal 98-107 [facility] Comment on above: Performed By: #### L [id number] #### [facility] ([facility]) [address] [place] [address] CO2 [Moles/Vol] 25 mmol/L Normal 21-31 [facility] Comment on above: Performed By: #### L [id number] #### [facility] ([facility]) [address] [place] [address] Creatinine [Mass/Vol] 0.91 mg/dL Normal 0.60-1.20 [facility] Comment on above: Performed By: #### L [id number] #### [facility] ([facility]) [address] [facility] [place] [address] GLOMERULAR FILTRATION RATE ML/MIN/1.73 SQ M.PREDICTED 72.2 mL/min/1.73m*2 Normal >60.0 [facility] Comment on above: Result Comment: [facility]???s estimated glomerular filtration rate (eGFR) will [...] L [id number] #### [facility] ([facility]) [address] [place] [address] Glucose [Mass/Vol] 101 mg/dL High 70-100 [facility] Comment on above: Performed By: #### L [id number] #### [facility] ([facility]) [address] [place] [address] Potassium [Moles/Vol] 3.5 mmol/L Normal 3.5-5.1 [facility] Comment on above: Performed By: #### L [id number] #### [facility] ([facility]) [address] [place] [address] Sodium [Moles/Vol] 141 mmol/L Normal 136-145 [facility] Comment on above: Performed By: #### L [id number] #### [facility] ([facility]) [address] [place] [address] Urea nitrogen [Mass/Vol] 13 mg/dL Normal 7-25 [facility] Comment on above: Performed By: #### L [id number] #### [facility] ([facility]) [address] [place] [address] UREA NITROGEN/CREATININE (MASS RATIO) IN SER/PLAS 14.3 Normal [facility] Comment on above: Performed By: #### L [id number] #### [facility] ([facility]) [address] [place] [address] CBCon 07-01-2024 Erythrocyte distribution width (RBC) [Ratio] 15.4 % High 11.5-15.0 [facility] Comment on above: Performed By: #### L [id number] ####[facility] ([facility])[address] [place] [address] ERYTHROCYTE MEAN CORPUSCULAR HEMOGLOBIN CONCENTRATION (G/DL) BY AUTOMATED 32.1 g/dL Normal 32.0-35.0 [facility] Comment on above: Performed By: #### L [id number] ####[facility] ([facility])[address] [place] [address] Hematocrit (Bld) [Volume fraction] 38.6 % Normal 36.0-48.0 [facility] Comment on above: Performed By: #### L [id number] ####[facility] ([facility])[address] [place] [address] Hemoglobin (Bld) [Mass/Vol] 12.4 g/dL Normal 12.0-15.0 [facility] Comment on above: Performed By: #### L [id number] ####[facility] ([facility] [place] [address] MCH (RBC) [Entitic mass] 26.9 pg Low 27.0-33.0 [facility] Comment on above: Performed By: #### L [id number] ####[facility] ([facility] [place] [address] MCV (RBC) [Entitic vol] 83.7 fL Normal 82.0-98.0 [facility] Comment on above: Performed By: #### L [id number] ####[facility] ([facility] [place] [address] PLATELETS (10*3/UL) IN BLOOD AUTOMATED COUNT 238 10*3/uL Normal 150-400 [facility] Comment on above: Performed By: #### L [id number] ####[facility] ([facility])[address] [place] [address] RBC (Bld) [#/Vol] 4.61 10*6/uL Normal 3.80-5.00 [facility] Comment on above: Performed By: #### L [id number] ####[facility] ([facility] [place] [address] WBC (Bld) [#/Vol] 7.04 10*3/uL Normal 4.00-10.60 [facility] Comment on above: Performed By: #### L [id number] ####[facility] ([facility] [place] [address] LIPID PANELon 07-01-2024 CHOL/HDL 3.8 mg/dL Normal [facility] Comment on above: Performed By: #### L [id number] #### [facility] ([facility]) [address] [place] [address] Cholesterol [Mass/Vol] 128 mg/dL Normal 120-200 [facility] Comment on above: Performed By: #### L [id number] #### [facility] ([facility]) [address] [place] [address] Magnesium [Mass/Vol] 87 mg/dL Normal 40-149 [facility] Comment on above: Result Comment: TRIG LYCERIDE REFERENCE RANGE: 20 YEARS AND OLDER CARDIOVASCULAR RISK LESS THAN 150 mg/dL LOW RISK 150 TO 199 mg/dL BORDERLINE RISK 200 mg/dL AND GREATER HIGH RISK Performed By: #### L [id number] #### [facility] ([facility]) [address] [place] [address] Magnesium [Mass/Vol] 77 mg/dL Normal 0-160 [facility] Comment on above: Performed By: #### L [id number] #### [facility] ([facility]) [address] [place] [address] Magnesium [Mass/Vol] 34 mg/dL Normal 23-92 [facility] Comment on above: Performed By: #### L [id number] #### [facility] ([facility]) [address] [place] [address] NON HDL CHOL. (LDL+VLDL) 94 Normal [facility] Comment on above: Performed By: #### L [id number] #### [facility] ([facility]) [address] [place] [address] TOTAL VLDL-C 17 mg/dL Normal 0-40 [facility] Comment on above: Performed By: #### L [id number] #### [facility] ([facility]) [address] [place] [address] MAGNESIUMon 07-01-2024 Magnesium [Mass/Vol] 2.0 mg/dL Normal 1.9-2.7 [facility] Comment on above: Performed By: #### L [id number] ####[facility] ([facility])[address] [place] [address] NURSNOTEon 07-01-2024 NURSNOTE Discharge instructio ns given, reviewed, questions, answered, signed, copy received. Normal [facility] POCT GLUCOSE METER UNSOLICIT ED RESULTSon 07-01-2024 Glucose [Mass/Vol] 124 mg/dL High 70-105 [facility] Comment on above: Order Comment: Waive d Testing in the ED is performed under the ED CLIA certificate #[id number]. Result Comment: [email or web address] Performed By: #### L [id number] ####[facility] ([facility])[address] [place] [address] Glucose [Mass/Vol] 106 mg/dL High 70-105 [facility] Comment on above: Order Comment: Waive d Testing in the ED is performed under the ED CLIA certificate #[id number]. Result Comment: [email or web address] Performed By: #### L [id number] #### [facility] ([facility]) [address] [facility] [place] [address] TROPONIN Ion 07-01-2024 Troponin I.cardiac [Mass/Vol] 0.09 ng/mL High 0.00-0.04 [facility] Comment on above: Performed By: #### L [id number] #### [facility] ([employer]) [address] [place] [address] 30on 06-30-2024 30 The patient is Moderately Stable - Low risk of patient condition declining or worsening The patient's goals for the shift include comfort, rest The clinical goals for the shift include stable vitals, comfort Problem: Pain - Adult Goal: Verbalizes/displays adequate comfort level or baseline comfort level Outcome: Not Progressing Normal [facility] 30 Daily Case Managemen t Update [...] PT Recommendations: OT Recommendations: New Consults: Normal [facility] 30 The patient is Moderately Stable - Low risk of patient condition declining or worsening The patient's goals for the shift include COMFORT The clinical goals for the shift include VSS Over the shift, the patient did not make progress toward the following goals. Barriers to progression include . Recommendations to address these barriers include . Normal [facility] ANTI-XA (HEPARIN LEVEL)on HEPARIN UNFRACTIONATED (U/ML) IN PPP BY CHROMOGENIC METHOD 0.64 IU/mL Normal 0.3-0.7 [facility] Comment on above: Order Comment: Check anti-Xa level every 6 hours while on heparin infusion, or per protocol. Result Comment: Aurora roxaban and Apixaban will interfere with the anti Xa assay used to monitor UFH and LMWH. Performed By: #### L [id number] ####[facility] ([facility])[address] [place] [address] BASIC METABOLIC PANELon 08-0 Anion gap [Moles/Vol] 11 mmol/L Normal 7-20 [facility] Comment on above: Performed By: #### L [id number] #### [facility] ([facility]) [address] [place] [address] Calcium [Mass/Vol] 8.3 mg/dL Low 8.6-10.3 [facility] Comment on above: Performed By: #### L [id number] #### [facility] ([facility]) [address] [place] [address] Chloride [Moles/Vol] 110 mmol/L High 98-107 [facility] Comment on above: Performed By: #### L [id number] #### [facility] ([facility]) [address] [place] [address] CO2 [Moles/Vol] 26 mmol/L Normal 21-31 [facility] Comment on above: Performed By: #### L [id number] #### [facility] ([facility]) [address] [place] [address] Creatinine [Mass/Vol] 0.81 mg/dL Normal 0.60-1.20 [facility] Comment on above: Performed By: #### L [id number] #### [facility] ([facility]) [address] [place] [address] GLOMERULAR FILTRATION RATE ML/MIN/1.73 SQ M.PREDICTED 83.1 mL/min/1.73m*2 Normal >60.0 [facility] Comment on above: Result Comment: [facility]???s estimated glomerular filtration rate (eGFR) will [...] group of individuals. Performed By: #### L [id number] #### [facility] ([facility]) [address] [place] [address] Glucose [Mass/Vol] 110 mg/dL High 70-100 [facility] Comment on above: Performed By: #### L [id number] #### [facility] ([facility]) [address] [place] [address] Potassium [Moles/Vol] 3.7 mmol/L Normal 3.5-5.1 [facility] Comment on above: Performed By: #### L [id number] #### [facility] ([facility]) [address] [facility] [address] Sodium [Moles/Vol] 143 mmol/L Normal 136-145 [facility] Comment on above: Performed By: #### L [id number] #### [facility] ([facility]) [address] [facility] [place] [address] Urea nitrogen [Mass/Vol] 10 mg/dL Normal 7-25 [facility] Comment on above: Performed By: #### L [id number] #### [facility] ([facility]) [address] [facility] [place] [address] UREA NITROGEN/CREATININE (MASS RATIO) IN SER/PLAS 12.3 Normal [facility] Comment on above: Performed By: #### L [id number] #### [facility] ([facility]) [address] [facility] [place] [address] CBCon 06-30-2024 Erythrocyte distribution width (RBC) [Ratio] 15.3 % High 11.5-15.0 [facility] Comment on above: Performed By: #### L [id number] #### [facility] ([facility] [address] [place] [address] ERYTHROCYTE MEAN CORPUSCULAR HEMOGLOBIN CONCENTRATION (G/DL) BY AUTOMATED 31.3 g/dL Low 32.0-35.0 [facility] Comment on above: Performed By: #### L [id number] #### [facility] ([facility]) [address] [place] [address] Hematocrit (Bld) [Volume fraction] 36.7 % Normal 36.0-48.0 [facility] Comment on above: Performed By: #### L [id number] #### [facility] ([facility]) [address] [place] [address] Hemoglobin (Bld) [Mass/Vol] 11.5 g/dL Low 12.0-15.0 [facility] Comment on above: Performed By: #### L [id number] #### [facility] ([facility]) [address] [place] [address] MCH (RBC) [Entitic mass] 26.9 pg Low 27.0-33.0 [facility] Comment on above: Performed By: #### L [id number] #### [facility] ([facility]) [address] [place] [address] MCV (RBC) [Entitic vol] 85.7 fL Normal 82.0-98.0 [facility] Comment on above: Performed By: #### L [id number] #### [facility] ([facility]) [address] [place] [address] PLATELETS (10*3/UL) IN BLOOD AUTOMATED COUNT 243 10*3/uL Normal 150-400 [facility] Comment on above: Performed By: #### L [id number] #### [facility] ([facility] [address] [place] [address] RBC (Bld) [#/Vol] 4.28 10*6/uL Normal 3.80-5.00 [facility] Comment on above: Performed By: #### L [id number] #### [facility] (BEAKER) [address] [place] [address] WBC (Bld) [#/Vol] 7.41 10*3/uL Normal 4.00-10.60 [facility] Comment on above: Performed By: #### L [id number] #### [facility] ([facility]ER) [address] [place] [address] CONSULTon 06-30-2024 CONSULT Cardiology Consult Note Reason for Consult: NSTEMI, transfer from [facility] HPI: Aby Madrigal, a 59 y.o. female patient, is transferred from [facility] for continuity of care. Past medical history includes: HTN History of TIA DMII HLD SURESH Overweight Patient reports that 3 days ago, she woke up in the mid of the night with indigestion, and a feeling fullness, but no pressure like chest pain. She presented to [facility], where she was found to be [...] Diabetes mellitus ([facility]/HCC), Hyperlipidemia, Hypertension, Obstructive sleep apnea, Panic attacks, and Stroke (CMS/[facility]). Surgical History She has a [...] Value Ventricular Rate 71 Atrial Rate 71 TN Interval 176 QRS DURATION 92 QT Interval 424 QTC CALCULATION(BAZETT) 460 P [place] 52 R-[place] 19 T Wave [place] 164 Impression Normal sinus rhythm Left ventricular [...] Normal sinu (more content not included)... Normal [facility] HPon 06-30-2024 H&P reviewed. The patient was examined and there are no changes to the H&P. 59 y.o. year old female with a PMHx significant for DM2, hypertension presents a direct mission from [facility] with a chief complaint of chest pain [...] to proceed. Signed, Yris Oakley MD PGY-4 Netsuite Consultant Pager: [phone] Normal [facility] POCT GLUCOSE METER UNSOLICIT ED RESULTSon 06-30-2024 Glucose [Mass/Vol] 170 mg/dL High 70-105 [facility] Comment on above: Order Comment: Waive d Testing in the ED is performed under the ED CLIA certificate #[id number]. Result Comment: [email or web address] Performed By: #### L [id number] #### [facility] ([facility]) [address] [place] [address] Glucose [Mass/Vol] 129 mg/dL High 70-105 [facility] Comment on above: Order Comment: Waive d Testing in the ED is performed under the ED CLIA certificate #[id number]. Result Comment: [email or web address] Performed By: #### L [id number] ####[facility] ([facility])[address] [address] Glucose [Mass/Vol] 167 mg/dL High 70-105 [facility] Comment on above: Order Comment: Waive d Testing in the ED is performed under the ED CLIA certificate #[id number]. Result Comment: [email or web address] Performed By: #### L [id number] ####[facility] ([facility])[address] [place] [address] TROPONIN Ion 06-30-2024 Troponin I.cardiac [Mass/Vol] 0.07 ng/mL High 0.00-0.04 [facility] Comment on above: Performed By: #### L [id number] ####[facility] ([facility])[address] [place] [address] Troponin I.cardiac [Mass/Vol] 0.10 ng/mL High 0.00-0.04 [facility] Comment on above: Performed By: #### L [id number] ####[facility] ([facility])[address] [place] [address] Troponin I.cardiac [Mass/Vol] 0.11 ng/mL Critically high 0.00-0.04 [facility] Comment on above: Result Comment: M-TR OPONIN INITIAL CRITICAL HIGH; RESPUN AND RETESTED Performed By: #### L [id number] #### [facility] ([facility]) [address] [place] [address] 30on 06-29-2024 30 The patient is Moderately Stable - Low risk of patient condition declining or worsening The patient's goals for the shift include COMFORT The clinical goals for the shift include VSS Normal [facility] APTTon 06-29-2024 ACTIVATED PARTIAL THROMBOPLASTIN TIME IN PPP BY COAGULATION ASSAY 34.5 Seconds Normal 25.0-35.0 [facility] Comment on above: Order Comment: Basel ine aPTT before initiating heparin infusion. Result Comment: Clin ical significance of the APTT is questionable in the presence of heparin. Performed By: #### L [id number] #### [facility] ([facility]) [address] [place] [address] B-TYPE NATRIURETIC PEPTIDEon 06-29-2024 Natriuretic peptide B (Bld) [Mass/Vol] 222 pg/mL High 0-100 [facility] Comment on above: Performed By: #### L [id number] #### [facility] ([facility]) [address] [place] [address] CBC WITH AUTO DIFFERENTIALon 06-29-2024 Basophils (Bld) [#/Vol] 0.05 10*3/uL Normal 0.00-0.20 [facility] Comment on above: Performed By: #### L [id number] #### [facility] ([facility]) [address] [place] [address] Basophils/100 WBC (Bld) 0.6 % Normal 0.0-1.0 [facility] Comment on above: Performed By: #### L [id number] #### [facility] ([facility]) [address] [place] [address] Eosinophils (Bld) [#/Vol] 0.18 10*3/uL Normal 0.00-0.50 [facility] Comment on above: Performed By: #### L [id number] #### [facility] ([facility] [address] [place] [address] Eosinophils/100 WBC (Bld) 2.1 % Normal 0.0-6.0 [facility] Comment on above: Performed By: #### L [id number] #### [facility] ([facility]) [address] [place] [address] Erythrocyte distribution width (RBC) [Ratio] 14.9 % Normal 11.5-15.0 [facility] Comment on above: Performed By: #### L [id number] #### [facility] ([facility]) [address] [place] [address] ERYTHROCYTE MEAN CORPUSCULAR HEMOGLOBIN CONCENTRATION (G/DL) BY AUTOMATED 32.9 g/dL Normal 32.0-35.0 [facility] Comment on above: Performed By: #### L [id number] #### [facility] ([facility]) [address] [place] [address] Hematocrit (Bld) [Volume fraction] 35.9 % Low 36.0-48.0 [facility] Comment on above: Performed By: #### L [id number] #### [facility] ([facility]) [address] [address] Hemoglobin (Bld) [Mass/Vol] 11.8 g/dL Low 12.0-15.0 [facility] Comment on above: Performed By: #### L [id number] #### [facility] ([facility]) [address] [place] [address] Immature granulocytes (Bld) [#/Vol] 0.03 10*3/uL Normal 0.00-0.20 [facility] Comment on above: Performed By: #### L [id number] #### [facility] ([facility] [address] [address] Immature granulocytes/100 WBC (Bld) 0.3 % Normal 0.0-1.0 [facility] Comment on above: Performed By: #### L [id number] #### [facility] (BE[facility]ER) [address] [place] [address] Lymphocytes (Bld) [#/Vol] 2.02 10*3/uL Normal 1.20-4.00 [facility] Comment on above: Performed By: #### L [id number] #### [facility] ([facility] [address] [place] [address] Lymphocytes/100 WBC (Bld) 23.5 % Normal 20.0-45.0 [facility] Comment on above: Performed By: #### L [id number] #### [facility] ([facility] [address] [place] [address] MCH (RBC) [Entitic mass] 27.2 pg Normal 27.0-33.0 [facility] Comment on above: Performed By: #### L [id number] #### [facility] ([facility]) [address] [place] [address] MCV (RBC) [Entitic vol] 82.7 fL Normal 82.0-98.0 [facility] Comment on above: Performed By: #### L [id number] #### [facility] ([facility]) [address] [place] [address] Monocytes (Bld) [#/Vol] 0.56 10*3/uL Normal 0.10-1.00 [facility] Comment on above: Performed By: #### L [id number] #### [facility] ([facility]) [address] [place] [address] Monocytes/100 WBC (Bld) 6.5 % Normal 5.0-12.0 [facility] Comment on above: Performed By: #### L [id number] #### [facility] ([facility] [address] [address] Neutrophils (Bld) [#/Vol] 5.74 10*3/uL Normal 1.60-7.60 [facility] Comment on above: Performed By: #### L [id number] #### [facility] ([facility] [address] [place] [address] Neutrophils/100 WBC (Bld) 67.0 % Normal 40.0-72.0 [facility] Comment on above: Performed By: #### L [id number] #### [facility] ([facility]) [address] [place] [address] NRBC (PER 100 WBCS) BY AUTOMATED COUNT 0.0 % Normal 0 [facility] Comment on above: Performed By: #### L [id number] #### [facility] ([facility]) [address] [place] [address] PLATELETS (10*3/UL) IN BLOOD AUTOMATED COUNT 233 10*3/uL Normal 150-400 [facility] Comment on above: Performed By: #### L [id number] #### [facility] ([facility]) [address] [place] [address] RBC (Bld) [#/Vol] 4.34 10*6/uL Normal 3.80-5.00 [facility] Comment on above: Performed By: #### L [id number] #### [facility] ([facility]) [address] [place] [address] WBC (Bld) [#/Vol] 8.58 10*3/uL Normal 4.00-10.60 [facility] Comment on above: Performed By: #### L [id number] #### [facility] ([facility]) [address] [place] [address] COMPREHENSIVE METABOLIC PANE Alec 06-29-2024 Albumin [Mass/Vol] 3.8 g/dL Normal 3.5-5.7 [facility] Comment on above: Performed By: #### L [id number] ####[facility] ([facility])[address] [place] [address] ALP [Catalytic activity/Vol] 64 U/L Normal 34-104 [facility] Comment on above: Performed By: #### L [id number] ####[facility] ([facility] [place] [address] ALT [Catalytic activity/Vol] 35 U/L Normal 7-52 [facility] Comment on above: Performed By: #### L [id number] ####[facility] ([facility] [place] [address] Anion gap [Moles/Vol] 12 mmol/L Normal 7-20 [facility] Comment on above: Performed By: #### L [id number] ####[facility] ([facility] [place] [address] AST [Catalytic activity/Vol] 21 U/L Normal 13-39 [facility] Comment on above: Performed By: #### L [id number] ####[facility] ([facility])[address] [place] [address] Bilirubin [Mass/Vol] 0.4 mg/dL Normal 0.3-1.0 [facility] Comment on above: Performed By: #### L [id number] ####[facility] ([facility])[address] [place] [address] Calcium [Mass/Vol] 8.5 mg/dL Low 8.6-10.3 [facility] Comment on above: Performed By: #### L [id number] ####[facility] ([facility])[address] [place] [address] Chloride [Moles/Vol] 112 mmol/L High 98-107 [facility] Comment on above: Performed By: #### L [id number] ####[facility] ([facility] [place] [address] CO2 [Moles/Vol] 22 mmol/L Normal 21-31 [facility] Comment on above: Performed By: #### L [id number] ####[facility] ([facility])[address] [place] [address] Creatinine [Mass/Vol] 0.92 mg/dL Normal 0.60-1.20 [facility] Comment on above: Performed By: #### L [id number] ####[facility] ([facility])[address] [place] [address] GLOMERULAR FILTRATION RATE ML/MIN/1.73 SQ M.PREDICTED 71.3 mL/min/1.73m*2 Normal >60.0 [facility] Comment on above: Result Comment: [facility]???s estimated glomerular filtration rate (eGFR) will [...] of individuals. Performed By: #### L [id number] ####[facility] ([facility])[address] [place] [address] Glucose [Mass/Vol] 108 mg/dL High 70-100 [facility] Comment on above: Performed By: #### L [id number] ####[facility] ([facility])[address] [place] [address] Potassium [Moles/Vol] 3.7 mmol/L Normal 3.5-5.1 [facility] Comment on above: Performed By: #### L [id number] ####[facility] ([facility])[address] [place] [address] Protein [Mass/Vol] 6.1 g/dL Normal 6.0-8.3 [facility] Comment on above: Performed By: #### L [id number] ####[facility] ([facility] [place] [address] Sodium [Moles/Vol] 142 mmol/L Normal 136-145 [facility] Comment on above: Performed By: #### L [id number] ####[facility] ([facility] [place] [address] Urea nitrogen [Mass/Vol] 11 mg/dL Normal 7-25 [facility] Comment on above: Performed By: #### L [id number] ####[facility] ([facility])[address] [facility] [address] UREA NITROGEN/CREATININE (MASS RATIO) IN SER/PLAS 12.0 Normal [facility] Comment on above: Performed By: #### L [id number] ####[facility] ([facility])[address] [place] [address] MAGNESIUMon 06-29-2024 Magnesium [Mass/Vol] 1.7 mg/dL Low 1.9-2.7 [facility] Comment on above: Performed By: #### L [id number] ####[facility] ([facility])[address] [facility] [address] PHOSPHORUSon 06-29-2024 Magnesium [Mass/Vol] 2.9 mg/dL Normal 2.5-5.0 [facility] Comment on above: Performed By: #### L [id number] ####[facility] ([facility])[address] [place] [address] PROTIME-INRon 06-29-2024 INR IN PPP BY COAGULATION ASSAY 0.99 Normal 0.90-1.10 [facility] Comment on above: Result Comment: ACCC [...] 1995;108:[id number]. Performed By: #### L [id number] #### [facility] ([facility]) [address] [place] [address] PROTHROMBIN TIME (PT) IN PPP BY COAGULATION ASSAY 13.1 Seconds Normal 12.3-14.8 [facility] Comment on above: Performed By: #### L [id number] #### [facility] ([facility]) [address] [place] [address] TROPONIN Ion 06-29-2024 Troponin I.cardiac [Mass/Vol] 0.10 ng/mL High 0.00-0.04 [facility] Comment on above: Performed By: #### L [id number] ####[facility] ([facility])[address] [place] [address] Office Visiton 06-21-2024 Follow-up visit [id number] Aby Madrigal S 1965 F Date Provider Department Center 06/21/2024 GOMEZ KENDALL RIAZ [place] Family History Problem Relation Age of Onset Lung cancer Mother No Known Problems Father Lung cancer Sister Family Status - Relation Status Age at Mother Father Sister Level of Service:87266 [place] OFFICE/OUTPATIENT ESTABLISHED MOD MDM 30 MIN Normal [facility] Office Visiton 05-26-2024 Follow-up visit [id number] Aby Madrigal S 1965 F Date Provider Department Center 05/26/2024 BIJAN LAWLRE RIAZ [place] Family History Problem Relation Age of Onset Lung cancer Mother No Known Problems Father Lung cancer Sister Family Status - Relation Status Age at Mother Father Sister Level of Service:06867 [place] OFFICE/OUTPATIENT NEW MODERATE MDM 45 MINUTES Normal [facility] Outside Colonoscopyon 2022 Outside Colonoscopy [id number] 0CD:127 Normal [facility] Reminderson 11-27-2022 Reminders - From: Na Hayes LPN To: GSN - Clinical; Sent: 11/27/2022 12:46:10 EST Show up: 10/25/2032 07:00:00 EST Subject: colonoscopy recall Due Date/Time: 11/25/2032 07:00:00 EST Reminder/Recall Patient is due for screening colonoscopy 11/25/2032. Normal [facility] Lab Reportson 11-24-2022 Lab Reports [id number] 0CD:127 Normal [facility] Covid-19 PCR (CVDTB)on 10-24 SARS-CoV-2 (COVID-19) RNA BECK+probe Ql (Unsp spec) Not detected Normal NOT DETECTED [facility] Comment on above: Result Comment: This test is not yet approved or cleared by the [place] FDA. When there are no FDA-approved or cleared tests available, and other criteria are met, FDA can make tests available under an emergency access mechanism called an Emergency Use Authorization (EUA). The EUA for this test is supported by the Residential Housekeeper of Health and Human Service's (HHS's) declaration [...] consistent with SARS-CoV-2. Performed By: #### C VDTB #### [facility] Laboratory [address] [place] [address] Dr. Rich Cutler Consent for Procedure/Surger yon 10-07-2022 Consent for Procedure/Surgery [id number] 0CD:127 Normal [facility] Ambulatory Visit Summaryon 1 12-06-2021 Ambulatory [...] for. Allergic conjunctivitis Anticoagulated Kidney stones Normal [facility] VC VENOUS REFLUX NINO LMTon 1 1-11-2022 VC VENOUS REFLUX NINO LMT Patient: STRAUSBAUGH, ABY S. Exam Date: 10/02/2022 : 1965 Gender:F Ordering : DR KENDRA MORAN . Admission #: [id number] Family : Order #: [id number] CLICK HERE TO VIEW EXAM RADIOLOGY REPORT [...] chronic thrombus visualized Compressibility: Normal Flow: Normal Geospatial Information Scientist: Dist/med calf 3.3mm with 0s reflux. Tech Note: Incompetent SFJ and GSV. Patent varicose vein mid/med calf 2.9mm with 0s reflux. Patent varicose vein prox/post calf 3.8mm with 0s reflux. Patent varicose vein dist/med thigh 3.8mm with 2.0s reflux. CONCLUSION: 1. Mild right and wncq-et-nckvzewa left great saphenous vein venous insufficiency with dilatation 2. Left saphenous popliteal junction reflux 3. Mild left anterior accessory saphenous vein venous insufficiency without dilatation 4. Small bilateral incompetent varicose veins Dictated by: Adelia Lezama MD on 10/02/2022 at 13:36 Approved by: Adelia Lezama MD on 10/02/2022 at 13:52 Normal [facility] ECHOCARDIO M/2D COMPLETEon 1 11-30-2021 ECHOCARDIO M/2D COMPLETE Patient: ABY MADRIGAL Exam Date: 09/30/2022 : 1965 Gender:F Ordering : DR KENDRA MORAN . Admission #: [id number] Family : Order #: [id number] CLICK HERE TO VIEW EXAM ECHOCARDIOGRAM REPORT [...] Normal [facility] BNPon 09-24-2022 Natriuretic peptide B (Bld) [Mass/Vol] 501.0 pg/mL Normal <=900.0 [facility] Comment on above: Performed By: #### C VDTBH #### [facility] [address] [place] [address] Dr. Rich Cutler CBC AUTO DIFFon 09-24-2022 BASO # 0.1 103/ul Normal 0.0-0.1 [facility] Comment on above: Performed By: #### C VDTBH #### [facility] [address] [place] [address] Dr. Rich Cutler Basophils/100 WBC (Bld) 0.8 % Normal 0.2-2.0 [facility] Comment on above: Performed By: #### C VDTBH #### [facility] [address] [place] [address] Dr. Rich Cutler EO # 0.3 103/ul Normal 0.0-0.7 [facility] Comment on above: Performed By: #### C VDTBH #### [facility] [address] [place] [address] Dr. Rich Cutler Eosinophils/100 WBC (Bld) 3.4 % Normal 0.9-7.0 [facility] Comment on above: Performed By: #### C VDTBH #### [facility] [address] [place] [address] Dr. Rich Cutler Erythrocyte distribution width (RBC) [Ratio] 13.3 % Normal 11.0-15.0 [facility] Comment on above: Performed By: #### C VDTBH #### [facility] [address] [place] [address] Dr. Rich Cutler Hematocrit (Bld) [Volume fraction] 40.5 % Normal 36.0-48.0 [facility] Comment on above: Performed By: #### C VDTBH #### [facility] [address] [place] [address] Dr. Rich Cutler Hemoglobin (Bld) [Mass/Vol] 13.1 g/dL Normal 12.0-16.0 [facility] Comment on above: Performed By: #### C VDTBH #### [facility] [facility] [address] [place] [address] Dr. Rich Cutler IG # 0.02 10e3/ul Normal 0.00-0.03 [facility] Comment on above: Performed By: #### C VDTBH #### [facility] [address] [place] [address] Dr. Rich Cutler IG % 0.3 % Normal 0.0-0.5 [facility] Comment on above: Performed By: #### C VDTBH #### [facility] [address] [place] [address] Dr. Rich Cutler LYMPH # 2.7 103/ul Normal 1.2-3.8 [facility] Comment on above: Performed By: #### C VDTBH #### [facility] [address] [place] [address] Dr. Rich Cutler Lymphocytes/100 WBC (Bld) 35.4 % Normal 20.5-60.0 [facility] Comment on above: Performed By: #### C VDTBH #### [facility] [address] [place] [address] Dr. Rich Cutler MANUAL DIFF REQ NO Normal [facility] Comment on above: Performed By: #### C VDTBH #### [facility] [address] [place] [address] Dr. Rich Cutler MCH (RBC) [Entitic mass] 28.2 pg Normal 26.7-34.0 [facility] Comment on above: Performed By: #### C VDTBH #### [facility] [address] [place] [address] Dr. Rich Cutler MCHC (RBC) [Mass/Vol] 32.3 g/dL Normal 29.9-35.2 [facility] Comment on above: Performed By: #### C VDTBH #### [facility] [address] [place] [address] Dr. Rich Cutler MCV (RBC) [Entitic vol] 87.3 fL Normal 81.0-99.0 [facility] Comment on above: Performed By: #### C VDTBH #### [facility] [address] [place] [address] Dr. Rich Cutler MONO # 0.5 103/ul Normal 0.3-0.8 [facility] Comment on above: Performed By: #### C VDTBH #### [facility] [address] [place] [address] Dr. Rich Cutler Monocytes/100 WBC (Bld) 6.5 % Normal 1.7-12.0 [facility] Comment on above: Performed By: #### C VDTBH #### [facility] [address] [place] [address] Dr. Rich Cutler NEUT # 4.1 103/ul Normal 1.4-6.5 [facility] Comment on above: Performed By: #### C VDTBH #### [facility] [address] [place] [address] Dr. Rich Cutler Neutrophils/100 WBC (Bld) 53.6 % Normal 43.0-75.0 [facility] Comment on above: Performed By: #### C VDTBH #### [facility] [address] [place] [address] Dr. Rich Cutler Platelet mean volume (Bld) [Entitic vol] 10.3 fL Normal 9.5-13.5 [facility] Comment on above: Performed By: #### C VDTBH #### [facility] [address] [place] [address] Dr. Rich Cutler PLT 283 103/ul Normal 150-450 [facility] Comment on above: Performed By: #### C VDTBH #### [facility] [address] [place] [address] Dr. Rich Cutler RBC 4.64 106/ul Normal 4.20-5.40 [facility] Comment on above: Performed By: #### C VDTBH #### [facility] [address] [place] [address] Dr. Rich Cutler WBC 7.6 103/ul Normal 4.0-11.0 [facility] Comment on above: Performed By: #### C VDTBH #### [facility] [address] [place] [address] Dr. Rich Cutler INSULINon 09-24-2022 Insulin 15.1 uIU/mL Normal 2.6-24.9 [facility] Comment on above: Performed By: #### C VDTBH #### [facility] [address] [place] [address] Dr. Rich Cutler PROF 14(COMP METB)on 022 Albumin [Mass/Vol] 3.5 g/dL Normal 3.4-5.0 [facility] Comment on above: Performed By: #### C VDTBH #### [facility] [address] [place] [address] Dr. Rich Cutler Albumin/Globulin [Mass ratio] 1.0 {ratio} Normal [facility] Comment on above: Performed By: #### C VDTBH #### [facility] [address] [place] [address] Dr. Rich Cutler ALP [Catalytic activity/Vol] 91 U/L Normal 46-116 [facility] Comment on above: Performed By: #### C VDTBH #### [facility] [address] [place] [address] Dr. Rich Cutler ALT [Catalytic activity/Vol] 47 U/L Normal 14-59 [facility] Comment on above: Performed By: #### C VDTBH #### [facility] [address] [place] [address] Dr. Rich Cutler Anion gap [Moles/Vol] 11.7 mmol/L Normal [facility] Comment on above: Performed By: #### C VDTBH #### [facility] [address] [place] [address] Dr. Rich Cutler AST [Catalytic activity/Vol] 24 U/L Normal 15-37 [facility] Comment on above: Performed By: #### C VDTBH #### [facility] [address] [place] [address] Dr. Rich Cutler Bilirubin [Mass/Vol] 0.2 mg/dL Normal 0.2-1.0 [facility] Comment on above: Performed By: #### C VDTBH #### [facility] [address] [place] [address] Dr. Rich Cutler Calcium [Mass/Vol] 8.9 mg/dL Normal 8.5-10.1 [facility] Comment on above: Performed By: #### C VDTBH #### [facility] [address] [place] [address] Dr. Rich Cutler Chloride [Moles/Vol] 105 mmol/L Normal 98-107 [facility] Comment on above: Performed By: #### C VDTBH #### [facility] [address] [place] [address] Dr. Rich Cutler CO2 [Moles/Vol] 28.1 mmol/L Normal 21.0-32.0 [facility] Comment on above: Performed By: #### C VDTBH #### [facility] [address] [place] [address] Dr. Rich Cutler Creatinine [Mass/Vol] 1.13 mg/dL Critically high 0.55-1.02 [facility] Comment on above: Performed By: #### C VDTBH #### [facility] [address] [place] [address] Dr. Rich Cutler EGFR-AF SIERRA LEONEAN 60 mL/min/1.73m2 Normal >=60 [facility] Comment on above: Performed By: #### C VDTBH #### [facility] [address] [place] [address] Dr. Rich Cutler EGFR-NON AF SIERRA LEONEAN 49 mL/min/1.73m2 Critically low >=60 [facility] Comment on above: Performed By: #### C VDTBH #### [facility] [address] [address] [address] Rich Cutler Globulin (S) [Mass/Vol] 3.5 g/dL Normal [facility] Comment on above: Performed By: #### C VDTBH #### [facility] [address] [address] [address] Rich Cutler Glucose [Mass/Vol] 119 mg/dL Critically high 74-[address] [facility] Comment on above: Performed By: #### C VDTBH #### [facility] [address] [address] [address] Rich Cutler Potassium [Moles/Vol] 3.8 mmol/L Normal 3.5-5.1 [facility] Comment on above: Performed By: #### C VDTBH #### [facility] [address] [place] [address] Dr. Rich Cutler Protein [Mass/Vol] 7.0 g/dL Normal 6.4-8.2 [facility] Comment on above: Performed By: #### C VDTBH #### [facility] [address] [place] [address] Dr. Rich Cutler Sodium [Moles/Vol] 141 mmol/L Normal 136-145 [facility] Comment on above: Performed By: #### C VDTBH #### [facility] [address] [place] [address] Dr. Rich Cutler Urea nitrogen [Mass/Vol] 16.0 mg/dL Normal 7.0-18.0 [facility] Comment on above: Performed By: #### C VDTBH #### [facility] [address] [place] [address] Dr. Rich Cutler Urea nitrogen/Creatinine [Mass ratio] 14.2 mg/mg Normal [facility] Comment on above: Performed By: #### C VDTBH #### [facility] [address] [place] [address] Dr. Rich Cutler TROPONIN, HIGH SENSITIVITYon 09-24-2022 HSTROP 10.6 pg/mL Normal 4.0-51.3 [facility] Comment on above: Result Comment: CUT- OFF POINTS HAVE BEEN ESTABLISHED BASED ON THE FOURTH UNIVERSAL DEFINITIONS OF MYOCARDIAL INFARCTION. THE UPPER REFERENCE LIMIT (URL) OF TROPONIN, DEFINED THE 99TH PERCENTILE OF cTnI DISTRIBUTION IN A REFERENCE POPULATION, HAS BEEN CONFIRMED THE DECISION THRESHOLD FOR TN DIAGNOSIS. Performed By: #### C VDTB #### [facility] [address] [place] [address] Dr. Rich Cutler XR CHEST 1 Von [...] Normal [facility] CBC AUTO DIFFon 09-23-2022 BASO # 0.1 103/ul Normal 0.0-0.1 [facility] Comment on above: Performed By: #### C BC #### [facility] [address] [place] [address] Dr. Rich Cutler Basophils/100 WBC (Bld) 0.8 % Normal 0.2-2.0 [facility] Comment on above: Performed By: #### C BC #### [facility] [address] [place] [address] Dr. Rich Cutler EO # 0.2 103/ul Normal 0.0-0.7 [facility] Comment on above: Performed By: #### C BC #### [facility] [address] [place] [address] Dr. Rich Cutler Eosinophils/100 WBC (Bld) 3.5 % Normal 0.9-7.0 [facility] Comment on above: Performed By: #### C BC #### [facility] [address] [place] [address] Dr. Rich Cutler Erythrocyte distribution width (RBC) [Ratio] 13.4 % Normal 11.0-15.0 [facility] Comment on above: Performed By: #### C BC #### [facility] [address] [place] [address] Dr. Rich Cutler Hematocrit (Bld) [Volume fraction] 42.3 % Normal 36.0-48.0 [facility] Comment on above: Performed By: #### C BC #### [facility] [address] [place] [address] Dr. Rich Cutler Hemoglobin (Bld) [Mass/Vol] 13.4 g/dL Normal 12.0-16.0 [facility] Comment on above: Performed By: #### C BC #### [facility] [address] [place] [address] Dr. Rich Cutler IG # 0.03 10e3/ul Normal 0.00-0.03 [facility] Comment on above: Performed By: #### C BC #### [facility] [address] [place] [address] Dr. Rich Cutler IG % 0.5 % Normal 0.0-0.5 [facility] Comment on above: Performed By: #### C BC #### [facility] [address] [place] [address] Dr. Rich Cutler LYMPH # 2.9 103/ul Normal 1.2-3.8 [facility] Comment on above: Performed By: #### C BC #### [facility] [address] [place] [address] Dr. Rich Cutler Lymphocytes/100 WBC (Bld) 44.0 % Normal 20.5-60.0 [facility] Comment on above: Performed By: #### C BC #### [facility] [address] [place] [address] Dr. Rich Cutler MANUAL DIFF REQ NO Normal [facility] Comment on above: Performed By: #### C BC #### [facility] [address] [place] [address] Dr. Rich Cutler MCH (RBC) [Entitic mass] 28.4 pg Normal 26.7-34.0 [facility] Comment on above: Performed By: #### C BC #### [facility] [address] [address] [address] Rich Cutler MCHC (RBC) [Mass/Vol] 31.7 g/dL Normal 29.9-35.2 [facility] Comment on above: Performed By: #### C BC #### [facility] [address] [place] [address] Dr. Rich Cutler MCV (RBC) [Entitic vol] 89.6 fL Normal 81.0-99.0 [facility] Comment on above: Performed By: #### C BC #### [facility] [address] [place] [address] Dr. Rich Cutler MONO # 0.4 103/ul Normal 0.3-0.8 [facility] Comment on above: Performed By: #### C BC #### [facility] [address] [place] [address] Dr. Rich Cutler Monocytes/100 WBC (Bld) 6.6 % Normal 1.7-12.0 [facility] Comment on above: Performed By: #### C BC #### [facility] [address] [place] [address] Dr. Rich Cutler NEUT # 2.9 103/ul Normal 1.4-6.5 [facility] Comment on above: Performed By: #### C BC #### [facility] [address] [place] [address] Dr. Rich Culter Neutrophils/100 WBC (Bld) 44.6 % Normal 43.0-75.0 [facility] Comment on above: Performed By: #### C BC #### [facility] [address] [place] [address] Dr. Rich Cutler Platelet mean volume (Bld) [Entitic vol] 11.0 fL Normal 9.5-13.5 [facility] Comment on above: Performed By: #### C BC #### [facility] [address] [place] [address] Dr. Rich Cutler PLT 272 103/ul Normal 150-450 [facility] Comment on above: Performed By: #### C BC #### [facility] [address] [place] [address] Dr. Rich Cutler RBC 4.72 106/ul Normal 4.20-5.40 [facility] Comment on above: Performed By: #### C BC #### [facility] [address] [place] [address] Dr. Rich Cutler WBC 6.5 103/ul Normal 4.0-11.0 [facility] Comment on above: Performed By: #### C BC #### [facility] [address] [place] [address] Dr. Rich Cutler FREE THYROXINE INDEX T7on FTI 2.16 Normal 1.30-4.50 [facility] Comment on above: Performed By: #### L IPID, TSH, T7, CMP #### [facility] [address] [place] [address] Dr. Rich Cutler T3U 30.0 % Normal 30.0-39.0 [facility] Comment on above: Performed By: #### L IPID, TSH, T7, CMP #### [facility] [address] [place] [address] Dr. Rich Cutler T4 [Mass/Vol] 7.20 ug/dL Normal 4.80-13.90 [facility] Comment on above: Performed By: #### L IPID, TSH, T7, CMP #### [facility] [address] [place] [address] Dr. Rich Cutler GLYCOHEMOGLOBIN A1Con 2021 ADA RECOMMENDATION SEE BELOW Normal [facility] Comment on above: Result Comment: ADA RECOMMENDED LIMIT 4.0 - 6.0 ADA THERAPEUTIC TARGET < 7.0 ACTION SUGGESTED > 7.0 Performed By: #### A 1C #### [facility] [address] [place] [address] Dr. Rich Cutler Glucose [Mass/Vol] 128 mg/dL Normal [facility] Comment on above: Performed By: #### A 1C #### [facility] [address] [place] [address] Dr. Rich Cutler HbA1c (Bld) [Mass fraction] 6.1 % Normal 4.5-6.2 [facility] Comment on above: Performed By: #### A 1C #### [facility] [address] [place] [address] Dr. Rich Cutler IRONon 09-23-2022 Iron [Mass/Vol] 64.0 ug/dL Normal 50.0-170.0 [facility] Comment on above: Performed By: #### C VDTBH #### [facility] [address] [place] [address] Dr. Rich Cutler LIPID PROFILEon 09-23-2022 CHOL-HDL RATIO NORM SEE BELOW Normal [facility] Comment on above: Result Comment: 3.3 - 4.4 LOW RISK 4.4 - 7.1 AVERAGE RISK 7.1 - 11.0 MODERATE RISK >11.0 HIGH RISK Performed By: #### L IPID, TSH, T7, CMP #### [facility] [address] [place] [address] Dr. Rich Cutler Cholesterol [Mass/Vol] 237 mg/dL Critically high <=200 [facility] Comment on above: Performed By: #### L IPID, TSH, T7, CMP #### [facility] [address] [place] [address] Dr. Rich Cutler Cholesterol in HDL [Mass/Vol] 44 mg/dL Normal 40-60 [facility] Comment on above: Performed By: #### L IPID, TSH, T7, CMP #### [facility] [address] [place] [address] Dr. Rich Cutler Cholesterol in LDL [Mass/Vol] 172.2 mg/dL Normal [facility] Comment on above: Performed By: #### L IPID, TSH, T7, CMP #### [facility] [address] [place] [address] Dr. Rich Cutler Cholesterol.total/C holesterol in HDL [Mass ratio] 5.4 {ratio} Normal [facility] Comment on above: Performed By: #### L IPID, TSH, T7, CMP #### [facility] [address] [place] [address] Dr. Rich Cutler HDL NORMAL > or = 60 mg/dl - LO W CARDIOVASCULAR RISK <40 mg/dl - HIGH CARDIOVASCULAR RISK Normal [facility] Comment on above: Performed By: #### L IPID, TSH, T7, CMP #### [facility] [address] [address] [address] Rich Cutler LDL CALC NORMAL SEE BELOW Normal [facility] Comment on above: Result Comment: <100 mg/dl OPTIMAL 100 - 129 mg/dl NEAR OR ABOVE OPTIMAL 130 - 159 mg/dl BORDERLINE HIGH 160 - 189 mg/dl HIGH >190 mg/dl VERY HIGH Performed By: #### L IPID, TSH, T7, CMP #### [facility] [address] [address] [address] Rich Cutler Triglyceride [Mass/Vol] 104 mg/dL Normal <=150 [facility] Comment on above: Performed By: #### L IPID, TSH, T7, CMP #### [facility] [address] [address] [address] Rich Cutler VLDL CALC 20.8 mg/dL Normal [facility] Comment on above: Performed By: #### L IPID, TSH, T7, CMP #### [facility] [address] [address] [address] Rich Cutler PROF 14(COMP METB)on 022 Albumin [Mass/Vol] 3.5 g/dL Normal 3.4-5.0 [facility] Comment on above: Performed By: #### L IPID, TSH, T7, CMP #### [facility] [address] [address] [address] Rich Cutler Albumin/Globulin [Mass ratio] 0.9 {ratio} Normal [facility] Comment on above: Performed By: #### L IPID, TSH, T7, CMP #### [facility] [address] [address] [address] Rich Cutler ALP [Catalytic activity/Vol] 93 U/L Normal 46-116 [facility] Comment on above: Performed By: #### L IPID, TSH, T7, CMP #### [facility] [address] [place], [place] [id number] Dr. Rich Cutler ALT [Catalytic activity/Vol] 44 U/L Normal 14-59 [facility] Comment on above: Performed By: #### L IPID, TSH, T7, CMP #### [facility] [address] [place] [address] Dr. Rich Cutler Anion gap [Moles/Vol] 8.5 mmol/L Normal [facility] Comment on above: Performed By: #### L IPID, TSH, T7, CMP #### [facility] [address] [place] [address] Dr. Rich Cutler AST [Catalytic activity/Vol] 26 U/L Normal 15-37 [facility] Comment on above: Performed By: #### L IPID, TSH, T7, CMP #### [facility] [address] [place] [address] Dr. Rich Cutler Bilirubin [Mass/Vol] 0.3 mg/dL Normal 0.2-1.0 [facility] Comment on above: Performed By: #### L IPID, TSH, T7, CMP #### [facility] [address] [place] [address] Dr. Rich Cutler Calcium [Mass/Vol] 9.0 mg/dL Normal 8.5-10.1 [facility] Comment on above: Performed By: #### L IPID, TSH, T7, CMP #### [facility] [address] [place] [address] Dr. Rich Cutler Chloride [Moles/Vol] 106 mmol/L Normal 98-107 [facility] Comment on above: Performed By: #### L IPID, TSH, T7, CMP #### [facility] [address] [place] [address] Dr. Rich Cutler CO2 [Moles/Vol] 31.0 mmol/L Normal 21.0-32.[address] [facility] Comment on above: Performed By: #### L IPID, TSH, T7, CMP #### [facility] [address] [place] [address] Dr. Rich Cutler Creatinine [Mass/Vol] 1.11 mg/dL Critically high 0.55-1.02 [facility] Comment on above: Performed By: #### L IPID, TSH, T7, CMP #### [facility] [address] [place] [address] Dr. Rich Cutler EGFR-AF SIERRA LEONEAN >60 Normal >=60 [facility] Comment on above: Performed By: #### L IPID, TSH, T7, CMP #### [facility] [address] [place] [address] Dr. Rich uCtler EGFR-NON AF SIERRA LEONEAN 50 mL/min/1.73m2 Critically low >=60 [facility] Comment on above: Performed By: #### L IPID, TSH, T7, CMP #### [facility] [address] [place] [address] Dr. Rich Cutler Globulin (S) [Mass/Vol] 3.7 g/dL Normal [facility] Comment on above: Performed By: #### L IPID, TSH, T7, CMP #### [facility] [address] [place] [address] Dr. Rich Cutler Glucose [Mass/Vol] 121 mg/dL Critically high 74-[address] [facility] Comment on above: Performed By: #### L IPID, TSH, T7, CMP #### [facility] [address] [place] [address] Dr. Rich Cutler Potassium [Moles/Vol] 4.5 mmol/L Normal 3.5-5.1 [facility] Comment on above: Performed By: #### L IPID, TSH, T7, CMP #### [facility] [address] [place] [address] Dr. Rich Cutler Protein [Mass/Vol] 7.2 g/dL Normal 6.4-8.2 [facility] Comment on above: Performed By: #### L IPID, TSH, T7, CMP #### [facility] [address] [place] [address] Dr. Rich Cutler Sodium [Moles/Vol] 141 mmol/L Normal 136-145 [facility] Comment on above: Performed By: #### L IPID, TSH, T7, CMP #### [facility] [address] [address] [address] Rich Cutler Urea nitrogen [Mass/Vol] 16.0 mg/dL Normal 7.0-18.0 [facility] Comment on above: Performed By: #### L IPID, TSH, T7, CMP #### [facility] [address] [address] [address] Rich Cutler Urea nitrogen/Creatinine [Mass ratio] 14.4 mg/mg Normal [facility] Comment on above: Performed By: #### L IPID, TSH, T7, CMP #### [facility] [address] [address] [address] Rich Cutler TSHon 09-23-2022 TSH 3.915 uIU/mL Critically high 0.358-3.740 [facility] Comment on above: Performed By: #### L IPID, TSH, T7, CMP #### [facility] [address] [address] [address] Rich Cutler Physician Referralon 022 Physician Referral [phone] [id number]:[id number] Normal [facility] Lipid Panelon 10-07-2021 Cholesterol [Mass/Vol] 205 mg/dL High 140-200 [facility] Comment on above: Result Comment: Chol less than 200 mg/dl low risk Chol 201-239 mg/dl borderline risk Chol 240 mg/dl and greater high risk Performed By: #### L IPID, [id number], TSH3 wRFLX #### [facility] [address] [id number] [place] Cholesterol in HDL [Mass/Vol] 25 mg/dL Low 35-85 [facility] Comment on above: Result Comment: HDL CHOL ATP-III CLASSIFICATION Cardiovascular Risk HDL > or equal to 60 mg/dL LOW HDL < 40 mg/dL HIGH Performed By: #### L IPID, [id number], TSH3 wRFLX #### [facility] [address] [place] [address] [place] Cholesterol.total/C holesterol in HDL [Mass ratio] 8.2 {ratio} Normal <5.0 [facility] Comment on above: Performed By: #### L IPID, [id number], TSH3 wRFLX #### [facility] [address] LDL Cholesterol,Calcula coby 160 mg/dL High 0-100 [facility] Comment on above: Result Comment: LDL ATP III CLASSIFICATION LDL less than 100 mg/dL Optimal LDL 100-129 mg/dL Near or above optimal LDL 130-159 mg/dL Borderline high LDL 160-189 mg/dL High LDL greater than 189 mg/dL Very high Performed By: #### L IPID, [id number], TSH3 wRFLX #### [facility] [address] [place] [address] Triglyceride w/Reflex 100 mg/dL Normal 35-149 [facility] Comment on above: Result Comment: TRIG ATP III CLASSIFICATION TRIG less than 150 mg/dL Normal TRIG 150-199 mg/dL Borderline high TRIG 200-500 mg/dL High TRIG greater than 500 mg/dL Very high Standard traceable to the Center for Disease Conrtrol and Prevention (CDC) test method. Performed By: #### L IPID, [id number], TSH3 wRFLX #### [facility] [address] [place] [address] VLDL CHOLESTEROL 20 mg/dL Normal [facility] Comment on above: Performed By: #### L IPID, [id number], TSH3 wRFLX #### [facility] [address] [place] [address] Thyroid Stim Hormone w/Rflxo n 10-07-2021 Thyroid Stim Hormone w/Rflx 3.27 u[iU]/mL Normal 0.45-5.33 [facility] Comment on above: Performed By: #### L IPID, [id number], TSH3 wRFLX #### [address] Vitamin D 25 Hydroxy Totalon 10-07-2021 Vitamin D 25 Hydroxy Total 26.5 ng/mL Low 30-100 [facility] Comment on above: Result Comment: JACKELINE MIN D STATUS 25(OH)VITAMIN D RANGE (ng/mL) Deficient <20 Insufficient 20 to <30 Sufficient 30 to 100 Reference: Lanny MF,Gino NC, Dyan VALENZUELA, et al. Evaluation,treatment, and prevention of vitamin D deficiency; an Endocrine Society clinical practice guideline. JCEM. 2010; 96(0):1911-30. PERFORMED BY: [facility] [address] [place] [address] PATHOLOGIST [employer]ATION MAKER SILVESTRE SCHULER M.D. Performed By: #### L IPID, [id number], TSH3 wRFLX #### [address] Vital Signs Date Time Vital Sign Value Performing Clinician Deidre gagnon 03-03-2025 11:02-0400 Body height 160.02 cm [facility] 03-03-2025 11:02-0400 Body mass index (BMI) [Ratio] 35.6 kg/m2 [facility] 03-03-2025 11:02-0400 Body temperature 97.8 [degF] [facility] 03-03-2025 11:02-0400 Body weight 91.34 kg [facility] 03-03-2025 11:02-0400 Diastolic blood pressure 69 mm[Hg] [facility] 03-03-2025 11:02-0400 Heart rate 82 /min [facility] 03-03-2025 11:02-0400 Respiratory rate 18 /min [facility] 03-03-2025 11:02-0400 SaO2% (BldA) [Mass fraction] 96 % [facility] 03-03-2025 11:02-0400 Systolic blood pressure 108 mm[Hg] [facility] 03-02-2025 09:18-0400 Body height 162.6 cm [facility] OCONNOR [facility] 03-02-2025 09:18-0400 Body mass index (BMI) [Ratio] 34.81 kg/m2 Farzana Ely APRN-TOR Work Phone: [employer] [facility] 03-02-2025 09:18-0400 Body weight 91.99 kg Farzana Ely READY TO WEAR DEPARTMENT MANAGER-BUSINESS AND FINANCIAL COUNSEL Work Phone: [facility] 03-02-2025 09:18-0400 Diastolic blood pressure 68 mm[Hg] Farzana Ely READY TO WEAR DEPARTMENT MANAGER-BUSINESS AND FINANCIAL COUNSEL Work Phone: [facility] 03-02-2025 09:18-0400 Systolic blood pressure 118 mm[Hg] Farzana Ely READY TO WEAR DEPARTMENT MANAGER-BUSINESS AND FINANCIAL COUNSEL Work Phone: [facility] 10-06-2022 15:36-0500 Blood Pressure Location Umm NILL [facility] 10-06-2022 15:36-0500 Diastolic blood pressure 86 mm[Hg] Umm NILL [facility] 10-06-2022 15:36-0500 Heart rate 72 /min Umm NILL [facility] 10-06-2022 15:36-0500 Respiratory rate 16 /min Umm NILL [facility] 10-06-2022 15:36-0500 Systolic blood pressure 126 mm[Hg] Umm NILL [facility] Encounters Encounter Date Encounter Type Care Provider Facility Start: 03-03-2025 End: 03-03-2025 ambulatory [facility] Work Phone: Start: 03-03-2025 End: 03-03-2025 Patient encounter procedure [facility] Work Phone: Start: 03-02-2025 End: 03-02-2025 ambulatory FARZANA M [facility] Start: 03-02-2025 End: 03-02-2025 Office outpatient visit 15 minutes Farzana Ely READY TO WEAR DEPARTMENT MANAGER-BUSINESS AND FINANCIAL COUNSEL Work Phone: [facility]Gynecology Comment on above: Genitourinary syndro me of menopause (Primary Dx); PCB (post coital bleeding) Start: 02-26-2025 End: 02-26-2025 ambulatory [facility] Start: 02-07-2025 End: 02-07-2025 ambulatory [facility] Start: 01-09-2025 End: 01-09-2025 ambulatory [facility] Start: 01-02-2025 End: 01-02-2025 ambulatory NONA [facility] Start: 10-26-2024 End: 10-26-2024 ambulatory [facility] Start: 10-03-2024 End: 10-03-2024 ambulatory [facility] Start: 09-04-2024 End: 09-04-2024 ambulatory [facility] Start: 08-29-2024 End: 08-29-2024 ambulatory [facility] Start: 08-04-2024 End: 08-04-2024 ambulatory [facility] Start: 07-20-2024 ambulatory [facility] Start: 07-20-2024 ambulatory [facility] Ambulatory [facility] Start: 07-18-2024 ambulatory [facility] Start: 07-18-2024 End: 07-18-2024 Emergency department patient visit HERMINIA JULIAN [facility] Start: 07-18-2024 End: 07-18-2024 ambulatory MESERET MAC [facility] Start: 07-11-2024 Evaluation and manag ement of inpatient NONA [facility] Start: 07-11-2024 [facility] Start: 07-11-2024 End: 07-12-2024 Evaluation and management of inpatient TAO NASSAR [facility] Start: 07-10-2024 End: 07-10-2024 [facility] Start: 06-30-2024 Evaluation and manag ement of inpatient [facility] Start: 06-30-2024 Evaluation and manag ement of inpatient [facility] Start: 06-29-2024 End: 07-01-2024 Evaluation and management of inpatient KENDRA MORAN [facility] Start: 06-21-2024 End: 06-21-2024 ambulatory GOMEZ CHANGMONA [facility] Start: 05-26-2024 End: 05-26-2024 ambulatory [facility] Start: 11-26-2022 Encounter for preprocedural laboratory examination DR UMM LANDON . [facility] Start: 11-25-2022 End: 11-26-2022 ambulatory Umm LANDON Facility:CD:[id number] Start: 11-20-2022 End: 11-21-[address] UMM LANDON . Facility:[facility] Start: 11-20-2022 End: 11-21-2022 Encounter for preprocedural laboratory examination DR UMM LANDON . Facility:[facility] Start: 10-06-2022 End: 10-07-2022 ambulatory Umm LANDON Facility:[facility] Start: 10-06-2022 End: 10-06-2022 Patient encounter procedure Umm LANDON [facility] Start: 10-02-2022 End: 10-03-[address] KENDRA MORAN . Facility:[facility] Start: 09-30-2022 End: 10-01-[address] KENDRA MORAN . Facility:[facility] Start: 09-28-2022 Encounter for genera l adult medical examination without abnormal findings DR KENDRA MORAN . [facility] Start: [...] Performing Clinician Start: 10-26-2024 Follow-up visit Follow-up JEFFREYSAMIR WANDER Start: 08-29-2019 Cystoscopic removal of ureteric stent Umm JACQUESL Bilateral tubal ligation Ad hael NILL Catheterization of l eft heart Umm NILL Cholecystectomy Umm NILL Cystoscopic insertio n of ureteric stent Umm NILL Dilation and curetta ge of uterus Umm NILL Vaginal hysterectomy Umm NILL Plan of Treatment Date Care Activity Detail Author Start: 03-02-2026 Adult BMI Screening Adult BMI Screening [facility] Start: 03-02-2026 Tobacco Screening Tobacco Screening [facility] Start: 07-23-2025 Influenza vaccination Influenza Vaccine [facility] Start: 06-01-2025 End: 06-01-2025 Patient encounter procedure 06/01/2025 1:00 PM EDT Office Visit [facility] [address] [place] [id number] Afsaneh Jacome, READY TO WEAR DEPARTMENT MANAGER-BUSINESS AND FINANCIAL COUNSEL [address] [facility] [place], [place] [id number] [facility] Start: 07-23-2024 COVID-19 Vaccine ( season) COVID-19 Vaccine ( season) [facility] Start: 2014 Administration of varicella zoster vaccine Zoster (Shingles) Vaccine (1 of 2) [facility] Start: 1983 DTaP,Tdap and Td Vaccines (1 - Tdap) DTaP,Tdap and Td Vaccines (1 - Tdap) [facility] Start: 1982 Adult BMI Follow Up Plan Adult BMI Follow Up Plan [facility] Start: 1976 Depression Screening Depression Screening [facility] Immunizations Immunization Date Immunization Notes Care Provider Fa ciliandrzej 11-07-2021 influenza virus vaccine, unspecified formulation Farzana Ely READY TO WEAR DEPARTMENT MANAGER-BUSINESS AND FINANCIAL COUNSEL Work Phone: [facility] 04-14-2021 SARS-CoV-2 (COVID-19 ) mRNA BNT-162b2 vax [facility]mm [facility] 03-11-2021 SARS-CoV-2 (COVID-19 ) mRNA BNT-162b2 vax [facility]mm [facility] NEGATED: Highlighted row has not occurred!10-07-2021 influenza, injectable, quadrivalent, preservative free [facility] Payers Date Payer Category Payer Medicaid [id number] 2022 Medicaid [id number] 2019 Private Health Insurance [id number] 2016 Unknown [id number] 1965 Unknown [id number] 2.16.8 [id number] 1964 Unknown [id number] 2.16.8 [id number] 1964 Unknown [id number] 2.16.84 [id number] 1964 Unknown [id number] 2.16.84 [id number] 1964 Unknown [id number] 2.16.84 0.1.690310.3.579.2.593 1964 Unknown [id number] 2.16.84 [id number] 1964 Unknown [id number] 2.16.84 0.1.065746.3.579.2.593 1964 Unknown [id number] 2.16.84 0.1.048290.3.579.2.593 1964 Unknown [id number] 2.16.84 0.1.456276.3.579.2.593 1964 Unknown [id number] 2.16. [id number] 1964 Unknown [id number] 2.16. [id number] 1964 Unknown [id number] 2.16.8 [id number] 1964 Unknown [id number] 2.16.8 [id number] 1959 Self-pay [id number] 1959 Unknown [id number] Social History Date Type Detail Facility Start: 10-06-2022 End: 03-02-2025 Tobacco smoking status Ex-smoker (finding) [facility] Tobacco smoking status Never [facility] Start: 01-02-2021 End: 03-02-2025 Sex Assigned At Female Fry Ivan Castrejonus [facility] Start: 10-07-2021 History of tobacco use Current smoke r [facility] History of tobacco use Cigarette Smoker P [facility] Start: 01-02-2021 End: 03-02-2025 Cigarettes smoked current (pack per day) - Reported 1 [facility] Start: 03-02-2025 Tobacco use and exposure Smokeless tobacco non-user [facility] Start: 03-02-2025 Alcoholic beverage intake Ex-drinker (finding) [facility] Start: 1965 Sex assigned at Not on file P [facility] Start: 06-27-2015 End: 03-03-2025 Sex Female (finding) [facility] Start: 1965 Sex Assigned At Female F [facility] Functional Status Date Assessment Result Facility 10-06-2022 Functional Status N/A [facility] Clinical Notes 10-11-2022 to 03-02-2025 Farzana Muro PastorGanelly, READY TO WEAR DEPARTMENT MANAGER-BUSINESS AND FINANCIAL COUNSEL - 03/02/2025 8:45 AM EDTPatient Instructions Note [...] Anxiety GERD (gastroesophageal reflux disease) Heart attack ([facility]) 06/29/2024 Hypertension MEDS Current [...] Ramos 03/02/25 1132 documented in this encounter [employer] 03-02-2025 Instructions ELVIN Ramos - 03/02/2025 8:45 [...] clitoris, and labia. documented in this encounter [facility] Note [place] [facility] Subjective Aby Madrigal is a [...] infarction) (CMS/HCC) Hypokalemia Coronary artery disease involving [place] coronary artery of [place] heart without angina pectoris Depression, major, severe [...] and V6. She was then admitted to [facility] on 07/11/2024 with NSTEMI. She underwent cardiac [...] on 01/31/2025 she was evaluated at the [facility] because of chest pain. Workup was negative. [...] Normal heart so (more content not included)... [facility] 02-07-2025 Note IR VENOGRAPHY VENOUS SAMPLE [...] was achieved using a micropuncture set. A MASS-ACTIVE [employer] wire was advanced into the IVC and a 5 Ukrainian vascular sheath was placed. Selective catheterization of [...] Gage Núñez MD on 02/07/2025 10:05 PM [facility] 01-18-2025 Note Patient contacted of agueda, states she called [facility] Interventional Radiology to schedule the referral Dr. Christie had sent over, however no referral was received. Certified Flex Endoscope Reprocessor faxed referral and recent visit note to [phone]. [facility] 01-09-2025 Note REASON FOR VISIT + [...] metoprolol - Jun 2019 CT A/P in [place], [place] performed for abd pain, incidentally detected [...] Diabetes mellitus ([facility]) Hyperlipidemia Hypertension Obstructive sleep apnea Panic attacks Stroke ([facility]) Past Surgical History: Procedure Laterality [...] (Imdur) 60 mg (more content not included)... [facility] 12-25-2024 Note Certified Flex Endoscope Reprocessor spoke with Remington greene at [facility] regarding this patient. Tram said the way the order was placed through the system they just didn't see it, Tram assured song writer that patient was being scheduled at the secondary infusion location. Any questions or concerns call Tram at [phone]. JLR [facility] 10-26-2024 Note Attestation signed by Richa Viramontes MD at 10/27/2024 12:07 PM I have seen and examined the patient. I reviewed the resident/fellow note and I agree with the findings and plan. Richa Viramontes MD Interventional Pulmonary Medicine Pulmonary and Critical Care Medicine [facility] Pulmonary Clinic Visit Note Patient: Aby Madrigal Age: 59 y.o. : 1965 Account No.: [id number] Chief complaint: RML nodule HPI Aby Madrigal is a 59 y.o. female with hypertension, CAD status post PCI recently in June 2024, cigarette smoking who is presenting to clinic via telemedicine as a new patient after being referred by Dr. Jarocho Saldaña. Patient reports recent admission to [facility] for hypertensive emergency. This prompted a CT of the chest which was positive for right middle lobe nodule. She then underwent PCI here at [facility] in June. She is currently on aspirin [...] PFTs on file. CTA chest 04/21/2024 at [facility]: Right middle lobe approximately 1.2 cm solid nodule appreciated Subsequent PET CT 2024 at [facility]: Right middle lobe nodule is faintly PET [...] pretest probability of (more content not included)... [facility] 10-03-2024 Note REASON FOR VISIT + [...] metoprolol - CT A/P Jun 2019 in [place], [place] performed for abd pain, incidentally detected [...] 25 mg by (more content not included)... [facility] 09-04-2024 Note [place] [facility] Subjective Aby Madrigal is a 59 y.o. year old female patient being seen for follow up [facility] in Jun 2024 for hypotension. She says [...] infarction) (CMS/HCC) Hypokalemia Coronary artery disease involving [place] coronary artery of [place] heart without angina pectoris Depression, major, severe [...] and V6. She was then admitted to [facility] on 07/11/2024 with NSTEMI. She underwent cardiac [...] and Affect: M (more content not included)... [facility] 07-20-2024 Note Attestation signed by Richa [...] Age: 59 y.o. : 1965 Account No.: [id number] Referring physician: Dr. Jarocho Saldaña Chief complaint: RML nodule HPI Aby Madrigal is a 59 y.o. female with hypertension, CAD status post PCI recently in June 2024,, cigarette smoking who is presenting to clinic via telemedicine as a new patient after being referred by Dr. Jarocho Saldaña. Patient reports recent admission to [facility] for hypertensive emergency. This prompted a CT of the chest which was positive for right middle lobe nodule. She then underwent PCI here at [facility] in June. She is currently on aspirin [...] PFTs on file. CTA chest 04/21/2024 at [facility]: Right middle lobe approximately 1 cm spiculated nodule appreciated [facility] Right middle lobe nodule is faintly PET [...] alcohol. She reports (more content not included)... [facility] 07-18-2024 Note REASON FOR VISIT + [...] metoprolol - CT A/P Jun 2019 in [place], [place] performed for abd pain, incidentally detected [...] Diabetes mellitus ([facility]) Hyperlipidemia Hypertension Obstructive sleep apnea Panic attacks Stroke ([facility]) Past Surgical History: Procedure Laterality [...] Rfl: carvedilol (C (more content not included)... 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 Resides at home alone. Discharge plan is home. [facility] 07-18-2024 Note Patient sent to ED f or hypotension and dizziness/lightheadedness [facility] 07-12-2024 Note Hospital Medicine Discharge Summary Final Discharge Diagnosis: NSTEMI Admission Diagnosis: Hypokalemia [E87.6] NSTEMI (non-ST elevated myocardial infarction) (CMS/HCC) [I21.4] Hypertensive urgency [I16.0] Adenoma of left adrenal gland [D35.02] Resistant hypertension [I1A.0] Atherosclerosis of [place] coronary artery of [place] heart without angina pectoris [I25.10] Coronary artery disease involving [place] coronary artery of [place] heart with unstable angina pectoris ([facility]/H[facility]) [I25.110] Type 2 diabetes mellitus without complication, without long-term current use of insulin ([facility]) [E11.9] Hospital course: 59yoF with CAD s/p LAD SARKIS 11 days ago who was admitted to [facility] on 07/11 for chest pain. patient initially presented to [facility] for uncomfortable feeling in her chest and was found to have elevated troponins and new ischemic changes on EKG. Infusion and cardiology was consulted transferred to [facility] for further evaluation. Initially the patient had blood pressures up to 192/65 for which home medications were restarted. Troponins at [facility] were negative and there were no EKG changes concerning for ischemia. Echo was performed which showed EF 70 to 75%. she was cleared from cardiology for discharge and had resolved. Surgical, Invasive or Diagnostic Procedures Done During Admission: None Consultations During Admission: Cardiology Dear Dr. Lidia MD, [facility] [...] Center 07/18/2024 8:20 AM Feng Christie MD [facility] ENDOCR [facility] 07/20/2024 1:00 PM Richa Viramontes MD [facility] 09/05/2024 1:00 PM Bijan Mitchell MD [facility] Your medication list START taking these [...] Your Medications These medications were sent to [facility]/pharmacy #[id number] [place] [id number] isosorbide mononitrate ER 60 mg 24 hr [...] activity In process (more content not included)... [facility] 07-11-2024 Note 07/11/24 1817 Financial Resource [...] place to sleep or slept in a care home (including now)? N Transportation Needs In [...] than 3 How often do you attend pentecostal or zoroastrian services? Never Do you belong to any clubs or organizations such as pentecostal groups, unions, fraternal or athletic groups, or [...] In the past 12 months has the [employer], gas, oil, or water 5sk[employer] threatened to shut off services in your home? 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 Referral Reason Psychosocial assessment Patient Information Primary Caregiver Self Accompanied by/Relationship Daughter (Rosita); [id number] (Yesy) Activities of Daily Living Assistive Device Not applicable Living Arrangement (Current/Prior to Hospitalization) Private residence (Lives at home by herself) Ambulation Independent Dressing Independent Feeding Independent Behavior Oriented (A&Ox4) Communication Can write;Talks;Understands speaking;Understands Bengali;Reads Income Information Income Source Unemployed (receives survivor benefits) Discharge Planning Support Systems Children;Family members (daughter, [id number], son) Type of Residence Private residence Will patient need Precert for Post Acute needs? No Patient's goal for discharge Home Does the patient need discharge transport arranged? No Completed social work assessment and SDoH screening. Patient was A&Ox4 at this time. Patient's daughter, Rosita, and patient's dlqtgrlw-rd-fal, Yesy, were currently present at bedside. Patient reported that she lives at home by herself and she identified her support system as her daughter, Rosita, her smjmmebm-ds-ohr, Yesy, and her son, Elie. Patient endorsed [...] any alcohol consumption or recreational drug use. [facility] 07-11-2024 Note Hospital Medicine History and Physical 07/11/2024 12:19 PM THE HOSPITALIST TEAM PREFERS TO USE [employer] FOR COMMUNICATION 7AM-7PM. IF I DO NOT RESPOND WITHIN 15 MINUTES, PLEASE PAGE ME/CALL THROUGH THE AUDIO VIDEO REPAIRER. FROM 7PM-7AM, PLEASE PAGE [phone](COVR) Chief Complaint Chief Complaint Patient presents with [...] s/p stent placement 11 days ago at [facility] presented to ER as a transfer from [facility] for NSTEMI. Patient states that last night [...] Noted Hypokalemia 07/11/2024 Coronary artery disease involving [place] coronary artery of [place] heart with unstable angina pectoris ([facility]) 07/11/2024 Anxiety 06/30/2024 Type 2 diabetes mellitus without complication, without long-term current use of insulin ([facility]) 06/30/2024 Chest pain 06/30/2024 Elevated troponin 06/30/2024 Hypertensive urgency 06/30/2024 Hypomagnesemia 06/30/2024 QURESHI (dyspnea on exertion) 05/26/2024 Atherosclerosis of [place] coronary artery of [place] heart without angina pectoris 05/26/2024 Hyperlipidemia 05/26/2024 Murmur, heart 05/26/2024 Sepsis ([facility]) 07/14/2019 BV (bacterial vaginosis) 10/18/2017 GERD (gastroesophageal reflux disease) 10/18/2017 Essential hypertension 10/18/2017 TIA (transient ischemic attack) 10/18/2017 NSTEMI (non-ST elevated myocardial infarction) ([facility]) 06/29/2024 Assessment and Plan NSTEMI [...] for GI prophylaxis (more content not included)... [facility] 07-10-2024 Note [facility] Note Reason for cardiology [...] Take 1 tablet (more content not included)... [facility] 07-01-2024 Note Hospital Medicine Discharge Summary [...] mission from [facility] with a chief complaint of chest pain. [...] went to [facility] for the symptoms. Labs were completed showing [...] on a heparin drip and transferred to [facility] for likely cardiac cath. # NSTEMI s/p [...] Center 07/10/2024 2:20 PM Bijan Mitchell MD [facility] Your medication list START taking these [...] Your Medications These medications were sent to [facility]/pharmacy #[id number] [place], [place] - [address] [facility] [address] carvedilol 25 mg tablet cloNIDine 0.1 mg [...] days Lab Units (more content not included)... [facility] 07-01-2024 Note [facility] CARDIOLOGY INPAT IENT PROGRESS NOTE Reason for follow up: NSTEMI Subjective Aby Madrigal, a 59 y.o. female patient, is transferred from [facility] for continuity of care. Patient reports that 3 days ago, she woke up in the mid of the night with indigestion, and a feeling fullness, but no pressure like chest pain. She presented to [facility], where she was found to be [...] 0.56 06/29/2024 E (more content not included)... [facility] 06-30-2024 Note Patient: Aby antony Procedure Information Date/Time: 06/30/24 1600 Procedure: Coronary angiography (Bilateral) Location: [facility] / [facility] (Cath) Providers: Brunilda [...] Plan discussed with attending. 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 [facility] 06-30-2024 Note 06/30/24 1431 Admission Assessment [...] Not Interested Does the patient have a nurse case management assigned to them through their [...] you able to send link and activate TMSt? No [facility] 06-30-2024 Note Case was discussed w ith the SALVADOR on 06/29/2024. I agree with the history, physical, assessment, and plan of care. I discussed the findings and therapeutic plan. I agree with the documentation, except for any updates below. Maurice Nogueira MD [facility] 06-30-2024 Note Hospital Medicine History and Physical 06/30/2024 1:15 AM THE HOSPITALIST TEAM PREFERS TO USE [employer] CHAT FOR COMMUNICATION 7AM-7PM. IF I DO NOT RESPOND WITHIN 15 MINUTES, PLEASE PAGE ME/CALL THROUGH THE AUDIO VIDEO REPAIRER. FROM 7PM-7AM, PLEASE PAGE [phone](COVR) Chief Complaint Direct admission from [facility] with CP History of Present Illness Aby Madrigal is an 59 y.o. female who came from home with past medical history of anxiety, DM2, hypertension, IBS presents a direct mission from [facility] with a chief complaint of chest pain. [...] went to [facility] for the symptoms. Labs were completed showing [...] on a heparin drip and transferred to [facility] for likely cardiac cath. Review of System [...] of insulin ([facility]) 06/30/2024 Chest pain 06/30/2024 Elevated troponin 06/30/2024 Hypertensive urgency 06/30/2024 QURESHI (dyspnea on exertion) 05/26/2024 Atherosclerosis of [place] coronary artery of [place] heart without angina pectoris 05/26/2024 Hyperlipidemia 05/26/2024 Murmur, heart 05/26/2024 Sepsis ([facility]) 07/14/2019 BV (bacterial vaginosis) 10/18/2017 GERD (gastroesophageal reflux disease) 10/18/2017 Essential hypertension 10/18/2017 TIA (transient ischemic attack) 10/18/2017 Assessment and Plan Aby Madrigal is an 59 y.o. female who came from home with past medical history of anxiety, DM2, hypertension, IBS presents a direct mission from [facility] with a chief complaint of chest pain. #Chest pain #Elevated troponin Troponin 0.1, will continue to trend -Patient continues to have mild chest discomfort upon arrival -Continue heparin drip -CXR negative for acute process at OSH -EKG showing normal sinus rhythm -N.p.o. for possible right and left cardiac cath in a.m. -Patient with new diastolic dysfunction on echoc (more content not included)... [facility] 06-21-2024 Note [place] [facility] - [facility] Subjective Aby Madrigal is a 59 y.o. year old female patient being seen for follow up [facility] ED per Dr. Moran. She has [...] attack) QURESHI (dyspnea on exertion) Atherosclerosis of [place] coronary artery of [place] heart without angina pectoris Hyperlipidemia Murmur, heart [...] Judgment: Judgment no (more content not included)... [facility] 05-26-2024 Note [facility] Note Reason for cardiology [...] PSYCH: appropriate mood, (more content not included)... [facility] 11-25-2022 Note OPERATIVE NOTE OPERATION DATE: [...] in 10 years. CC: Kendra Moran M.D. [facility] 10-11-2022 Note Chief Complaint consultation [...] 1 tab(s), Oral, (more content not included)... [facility] Comment on above: Result Comment: Elec tronically Signed By: DIPESH BUCKNER, Umm Hogan\Date and Time Signed: 10/11/22 11:01 EST Evaluation + Plan note No data available for this section General Surgery [place] Evaluation note Diagnosis Genitourinary syndrome of menopause- Primary PCB (post coital bleeding) Postcoital bleeding documented in this [facility] information [facility] Work Phone: Hospital Discharge instructions No data available for this section General Surgery [place] Progress note No data available for this section General Surgery [place] Summary Purpose Family History No Family History [...] CREATED AUTHOR AUTHOR'S ORGANIZ ATION 12/16/2022 [facility] DATE CREATED AUTHOR AUTHOR'S ORGANIZ ATION 03/26/2023 [facility] DATE CREATED AUTHOR AUTHOR'S ORGANIZ ATION 02/11/2025 [facility] DATE CREATED AUTHOR AUTHOR'S ORGANIZ ATION 03/04/2025 [facility] DATE CREATED AUTHOR AUTHOR'S ORGANIZ ATION 03/31/2025 [facility] Patient Care team informatio n (unrecognized section and content) Lymphedema Therapist Relationship Specialty Start Date End Date Kendra [...] BE BASED ON THE PRIMARY CLINICAL RECORDS. [employer] provides no warranty or guarantee of the accuracy or completeness of information in this document.
[2025-04-01] MEDS: ONDANSETRON PF 4 MG/2 ML VIAL IV (17:31)
[2025-04-01] MEDS: 0.9 % SODIUM CHLORIDE 1,000 ML 1000 ML IV (17:31)
[2025-04-01 18:00] LABS: Basophils Absolute Auto 0.1 10^3/uL (0.0-0.1); Basophils Percent Auto 1.1 % (0.2-2.0); Eosinophils Absolute Auto 0.2 10^3/uL (0.0-0.7); Eosinophils Percent Auto 2.6 % (0.9-7.0); Hematocrit 36.3 % (36.0-48.0); Hemoglobin 11.8 g/dL (12.0-16.0); Immature Granulocytes Abs Auto 0.02 10^3/uL (0.00-0.03); Immature Granulocytes Pct Auto 0.3 % (0.0-0.5); Lymphocytes Absolute Auto 2.5 10^3/uL (1.2-3.8); Mean Corpuscular HGB Conc 32.5 g/dL (29.9-35.2); Mean Corpuscular Volume 83.1 fL (81.0-99.0); Mean Platelet Volume 10.3 fL (9.5-13.5); Monocytes Absolute Auto 0.5 10^3/uL (0.3-0.8); Monocytes Percent Auto 7.4 % (1.7-12.0); Neutrophils Absolute Auto 3.2 10^3/uL (1.4-6.5); Neutrophils Percent Auto 49.6 % (43.0-75.0); Platelet Count 186 10^3/uL (150-450); Red Blood Count 4.37 10^6/uL (4.20-5.40); Red Cell Distribution Width 15.4 % (11.0-15.0); White Blood Count 6.5 10^3/uL (4.0-11.0)
[2025-04-01 18:18] LABS: Alanine Aminotransferase 19 U/L (14-59); Alkaline Phosphatase 68 U/L (46-116); Anion Gap 10.1; Aspartate Amino Transferase 16 U/L (15-37); BUN Creatinine Ratio 19.7; Bilirubin Total 0.3 mg/dL (0.2-1.0); Calcium 9.3 mg/dL (8.5-10.1); Carbon Dioxide 29.8 mmol/L (21.0-32.0); Chloride 104 mmol/L (98-107); Estimated GFR (African America 57 (>=60 mL/min/1.73m^2); Estimated GFR (Non-African Ame 47 (>=60 mL/min/1.73m^2); Globulin 3.1 g/dL; Glucose 95 mg/dL (74-106); Sodium 141 mmol/L (136-145); Total Protein 6.1 g/dL (6.4-8.2)
[2025-04-01 18:21] LABS: Potassium 2.9 mmol/L (3.5-5.1)
[2025-04-01] MEDS: POTASSIUM BICARBONATE/CIT 25 MEQ TABLET EFF 50 MEQ PO ×2 (18:49→19:09)
--- NOTE | 2025-04-01 19:40 | PC.NURSE ---
this patient is awake and alert sitting upright on the bed talking to her friend. i informed this patient waiting on the radiology results to come back. this patient voices no complaints and shows no signs of distress
[2025-04-01 19:57] LABS: Bilirubin Urine NEGATIVE (NEGATIVE); Blood Urine TRACE-I (NEGATIVE); Clarity Urine CLEAR (CLEAR); Color Urine LT. YELLOW (YELLOW); Glucose Urine UA >=1000 mg/dL (NEGATIVE); Ketones Urine NEGATIVE (NEGATIVE); Leukocyte Esterase Urine NEGATIVE (NEGATIVE); Nitrite Urine NEGATIVE (NEGATIVE); Protein Urine NEGATIVE (NEG/TRACE); Specific Gravity Urine <=1.005 (1.005-1.025); Urobilinogen Urine 0.2 EU/dL (0.2-1.0)
--- NOTE | 2025-04-01 20:04 | ED.GENADUL1 ---
HPI HPI - General Adult General Chief complaint: GI Bleed Stated complaint: POOPING BLOOD Time Seen by Provider: 04/01/25 16:50 Source: patient Mode of arrival: walk-in Limitations: no limitations History of Present Illness HPI narrative: 59-year-old female presents here chief complaint abdominal pain diarrhea. She she is otherwise no acute distress. Patient is afebrile nontoxic. Abdomen is soft. Has recently finished several courses of antibiotics. She was to bring a stool specimen in for her primary care physician for C. difficile tomorrow. She is not actively having any diarrhea at this time. She states she had blood in her stool and noted. Denies a known history of hemorrhoids. Related Data Home Medications ?Medication ?Instructions ?Recorded ?Confirmed metformin 500 mg tablet 500 mg PO BID 04/21/24 04/01/25 aspirin 81 mg capsule 81 mg PO DAILY 04/22/24 04/01/25 clopidogrel 75 mg tablet 75 mg PO DAILY 07/01/24 04/01/25 quetiapine 100 mg tablet (Seroquel) 100 mg PO .QHS 07/24/24 04/01/25 rosuvastatin 40 mg tablet 40 mg PO DAILY 07/24/24 04/01/25 isosorbide mononitrate 60 mg 60 mg PO BID 07/31/24 04/01/25 tablet,extended release 24 hr lorazepam 1 mg tablet (Ativan) 1 mg PO Q6H PRN anxiety 07/31/24 04/01/25 hydralazine 50 mg tablet 50 mg PO TID PRN hypertension 09/15/24 04/01/25 fluconazole 100 mg tablet 100 mg PO DAILY 04/01/25 04/01/25 Previous Rx's ?Medication ?Instructions ?Recorded carvedilol 25 mg tablet 25 mg PO TID #90 tabs 07/27/24 canagliflozin 300 mg tablet 300 mg PO DAILY #30 tabs 11/13/24 (Invokana) pantoprazole 40 mg tablet,delayed 40 mg PO BID #60 tabs 11/13/24 release (Protonix) hydrocortisone 1 %-pramoxine 1 % 1 applic CO DAILY PRN hemorrhoids 04/01/25 rectal foam (Proctofoam HC) #10 grams potassium chloride 20 mEq oral 20 meq PO DAILY 7 days #7 ea 04/01/25 packet Allergies Allergy/AdvReac Type Severity Reaction Status Date / Time lisinopril Allergy Severe Cough Verified 04/01/25 16:52 amlodipine Allergy Mild Headache Verified 04/01/25 16:52 alprazolam (From Xanax) AdvReac Severe Watery Eye Verified 04/01/25 16:52 Opioid HPI Opioid Management Most Recent Opioid Data: Last Pain Scale 2 03/26/25, 02:48 Last ED Pain Assessment 03/26/25, 01:42 Last MAR Pain Assessment 03/26/25, 00:36 Last ORT Total Score 4 11/12/24, 11:27 Last ORT Risk Category Moderate Risk 11/12/24, 11:27 Review of Systems ROS Status of ROS 10 or more systems reviewed and unremarkable except as noted in history and below [facility] Medical History Elevated troponin ?R79.89 - Other specified abnormal findings of blood chemistry (ICD-10) Hypertensive emergency ?I16.1 - Hypertensive emergency (ICD-10) Acute non-ST elevation myocardial infarction (NSTEMI) ?I21.4 - Non-ST elevation (NSTEMI) myocardial infarction (ICD-10) Chest pain ?R07.9 - Chest pain, unspecified (ICD-10) CAD (coronary artery disease) ?I25.10 - Atherosclerotic heart disease of [place] coronary artery without angina pectoris (ICD-10) Hypertensive urgency ?I16.0 - Hypertensive urgency (ICD-10) HTN (hypertension) ?I10 - Essential (primary) hypertension (ICD-10) Hypertensive urgency ?I16.0 - Hypertensive urgency (ICD-10) Chest pain ?R07.9 - Chest pain, unspecified (ICD-10) Anxiety ?F41.9 - Anxiety disorder, unspecified (ICD-10) HTN (hypertension) ?I10 - Essential (primary) hypertension (ICD-10) Hypokalemia ?E87.6 - Hypokalemia (ICD-10) Hypertension, uncontrolled ?I10 - Essential (primary) hypertension (ICD-10) Chest pain ?R07.9 - Chest pain, unspecified (ICD-10) NSTEMI (non-ST elevated myocardial infarction) ?I21.4 - Non-ST elevation (NSTEMI) myocardial infarction (ICD-10) Shortness of breath ?R06.02 - Shortness of breath (ICD-10) Headache ?R51.9 - Headache, unspecified (ICD-10) Elevated d-dimer ?R79.89 - Other specified abnormal findings of blood chemistry (ICD-10) Hypertensive emergency ?I16.1 - Hypertensive emergency (ICD-10) Uncontrolled hypertension ?I10 - Essential (primary) hypertension (ICD-10) Irritable bowel syndrome ?K58.9 - Irritable bowel syndrome without diarrhea (ICD-10) H/O nephrolithotomy with removal of calculi ?Z98.890 - Other specified postprocedural states (ICD-10) ?Z87.442 - Personal history of urinary calculi (ICD-10) Kidney stone ?N20.0 - Calculus of kidney (ICD-10) Sepsis ?A41.9 - Sepsis, unspecified organism (ICD-10) H/O angiography ?Z92.89 - Personal history of other medical treatment (ICD-10) Lung nodule ?R91.1 - Solitary pulmonary nodule (ICD-10) Anxiety ?F41.9 - Anxiety disorder, unspecified (ICD-10) HTN (hypertension) ?I10 - Essential (primary) hypertension (ICD-10) Diabetes ?E11.9 - Type 2 diabetes mellitus without complications (ICD-10) TIA (transient ischemic attack) ?G45.9 - Transient cerebral ischemic attack, unspecified (ICD-10) Surgical History H/O heart artery stent ?Z95.5 - Presence of coronary angioplasty implant and graft (ICD-10) History of appendectomy ?Z90.49 - Acquired absence of other specified parts of digestive tract (ICD-10) H/O tubal ligation ?Z98.51 - Tubal ligation status (ICD-10) History of cholecystectomy ?Z90.49 - Acquired absence of other specified parts of digestive tract (ICD-10) Family History Mother Family history of cancer Father MVA (motor vehicle accident) Brother Family history of stroke Social History Within the past year, how often did you have a drink containing alcohol: never Within the past year, how often did you have six or more drinks on one occasion: never Score interpretation: A score less than 3 is consistent with normal alcohol consumption. Smoking status: Former smoker Second hand tobacco smoke exposure: No Non-prescribed substance use: denies use Previous occupational history: no Known occupational exposures/hazards: No Highest level of school completed/degree received: high school graduate Do you want help with school or training: No Are you now , , , , never or living with a partner: In a typical week, how many times do you talk on the telephone with family, friends, or neighbors: 3 or more times per week How often do you get together with friends or relatives: 3 or more times per week How often do you attend episcopalian or yazidism services: never Do you belong to any clubs or organizations such as episcopalian groups unions, [employer] or athletic groups, or school groups: no Total score: 1 Score interpretation: A score of less than or equal to 1 indicates the most socially isolated. Little interest or pleasure in doing things: not at all Feeling down, depressed, or hopeless: not at all Feel stressed/tense/nervous/anxious/difficulty sleeping: not at all Do you think of yourself as: straight/heterosexual Gender Identity: female Exam Narrative Exam Narrative: All Systems are negative except as noted/marked.All systems reviewed and otherwise negative Nurses note and vital signs reviewed and patient is not hypoxic. General: The patient appears well and in no apparent distress. Patient is resting comfortably on cart. Skin: Warm, dry, no pallor noted. There is no rash noted. Head: Normocephalic, atraumatic Eye: Normal conjunctiva, no drainage, EOMI. PERRL Ears, Nose, Mouth, and Throat: oral mucosa is moist. Nares patent. Mouth without vesicles. Ear canals patent. Tm's without Erythema Cardiovascular: Regular Rate and Rhythm Respiratory: Patient is in no distress, no accessory muscle use, lungs are clear to auscultation, no wheezing, rales or rhonchi Back: non-tender, no CVA tenderness bilaterally to percussion. GI: Normal bowel sounds, no tenderness to palpation, no masses appreciated. No rebound, guarding, or rigidity noted. gu: thrombosed Hemorrhoid, Musculoskeletal: The patient has no evidence of calf tenderness, no pitting edema, symmetrical pulses noted bilaterally Neurological: A&O x4, normal speech Psychiatric: Cooperative Constitutional Vital Signs, click to edit/add: Last Vital Signs Temp 97.9 F 04/01/25 16:53 Pulse 82 04/01/25 16:53 Resp 20 04/01/25 16:53 BP 148/66 H 04/01/25 16:53 Pulse Ox 97 04/01/25 16:53 O2 Del Method Room Air 04/01/25 16:53 Course Vital Signs Vital signs: Vital Signs Temperature 97.9 F 04/01/25 16:53 Pulse Rate 82 04/01/25 16:53 Respiratory Rate 20 04/01/25 16:53 Blood Pressure 148/66 H 04/01/25 16:53 Pulse Oximetry 97 04/01/25 16:53 Oxygen Delivery Method Room Air 04/01/25 16:53 Temperature 97.9 F 04/01/25 16:53 Pulse Rate 82 04/01/25 16:53 Respiratory Rate 20 04/01/25 16:53 Blood Pressure 148/66 H 04/01/25 16:53 Pulse Oximetry 97 04/01/25 16:53 Oxygen Delivery Method Room Air 04/01/25 16:53 Medical Decision Making MDM Narrative Medical decision making narrative: 59-year-old female presents here chief complaint abdominal pain diarrhea. She she is otherwise no acute distress. Patient is afebrile nontoxic. Abdomen is soft. Has recently finished several courses of antibiotics. She was to bring a stool specimen in for her primary care physician for C. difficile tomorrow. She is not actively having any diarrhea at this time. She states she had blood in her stool and noted. Denies a known history of hemorrhoids. Chief complaint of blood in her stool. On examination rectum she does have a thrombosed hemorrhoid. There is no acute active bleeding at this time but I do believe this is where her blood is coming from with her stool. CT scan was performed and showed wall thickening with loops of small bowel centrally due to incomplete distention however findings suggestive of enteritis. Bilateral 9 nephrolithiasis no hydronephrosis or calculus noted no acute appendicitis colitis or diverticulitis. Patient's blood work does show a low potassium which she has had in the past of 2.9. Medicated here with potassium discharged home prescription of potassium. Patient encouraged to follow-up with primary care physician this week. She agrees with plan of care. Discharged home diagnosis of enteritis, thrombosed hemorrhoid, hypokalemia. Differential Diagnosis Differential Diagnosis: diarrhea , c diff, diverticulitis Medical Records Medical records reviewed: Yes I reviewed the patient's medical records Lab Data Lab results reviewed: Yes I reviewed the patient's lab results Labs: Lab Results 04/01/25 04/01/25 Range/Units 17:28 19:50 WBC 6.5 (4.0-11.0) 10^3/uL RBC 4.37 (4.20-5.40) 10^6/uL Hgb 11.8 L (12.0-16.0) g/dL Hct 36.3 (36.0-48.0) % MCV 83.1 (81.0-99.0) fL MCH 27.0 (26.7-34.0) pg MCHC 32.5 (29.9-35.2) g/dL RDW 15.4 H (11.0-15.0) % Plt Count 186 (150-450) 10^3/uL MPV 10.3 (9.5-13.5) fL Neut % (Auto) 49.6 (43.0-75.0) % Lymph % (Auto) 39.0 (20.5-60.0) % [place] % (Auto) 7.4 (1.7-12.0) % Eos % (Auto) 2.6 (0.9-7.0) % Baso % (Auto) 1.1 (0.2-2.0) % Neut # (Auto) 3.2 (1.4-6.5) 10^3/uL Lymph # (Auto) 2.5 (1.2-3.8) 10^3/uL [place] # (Auto) 0.5 (0.3-0.8) 10^3/uL Eos # (Auto) 0.2 (0.0-0.7) 10^3/uL Baso # (Auto) 0.1 (0.0-0.1) 10^3/uL Abs Immat Gran (auto) 0.02 (0.00-0.03) 10^3/uL Imm/Tot Granulo (auto) 0.3 (0.0-0.5) % Sodium 141 (136-145) mmol/L Potassium 2.9 L* (3.5-5.1) mmol/L Chloride 104 (98-107) mmol/L Carbon Dioxide 29.8 (21.0-32.0) mmol/L Anion Gap 10.1 BUN 23.0 H (7.0-18.0) mg/dL Creatinine 1.17 H (0.55-1.02) mg/dL Est GFR ( Amer) 57 L (>=60 mL/min/1.73m^2) Est GFR (Non-Af Amer) 47 L (>=60 mL/min/1.73m^2) BUN/Creatinine Ratio 19.7 Glucose 95 (74-106) mg/dL Calcium 9.3 (8.5-10.1) mg/dL Total Bilirubin 0.3 (0.2-1.0) mg/dL AST 16 (15-37) U/L ALT 19 (14-59) U/L Alkaline Phosphatase 68 (46-116) U/L Total Protein 6.1 L (6.4-8.2) g/dL Albumin 3.0 L (3.4-5.0) g/dL Globulin 3.1 g/dL Albumin/Globulin Ratio 1.0 Urine Color Lt. yellow (YELLOW) Urine Clarity Clear (CLEAR) Urine pH 6.0 (5.0-9.0) Ur Specific Rickman <=1.005 A (1.005-1.025) Urine Protein Negative (NEG/TRACE) mg/dL Urine Glucose (UA) >=1000 A (NEGATIVE) mg/dL Urine Ketones Negative (NEGATIVE) mg/dL Urine Occult Blood Trace-i (NEGATIVE) Urine Nitrite Negative (NEGATIVE) Urine Bilirubin Negative (NEGATIVE) Urine Urobilinogen 0.2 (0.2-1.0) EU/dL Ur Leukocyte Esterase Negative (NEGATIVE) Discharge Plan Discharge Chief Complaint: GI Bleed Clinical Impression: Enteritis, External hemorrhoid, thrombosed, Chronic hypokalemia Patient Disposition: Home, Self-Care Time of Disposition Decision: 19:27 Condition: Good Prescriptions / Home Meds: New Proctofoam HC 1-1 % foam 1 applic CO DAILY PRN (Reason: hemorrhoids) Qty: 10 0RF potassium chloride 20 mEq packet 20 meq PO DAILY 7 Days Qty: 7 0RF No Action metformin 500 mg tablet 500 mg PO BID aspirin 81 mg capsule 81 mg PO DAILY rosuvastatin 40 mg tablet 40 mg PO DAILY quetiapine [Seroquel] 100 mg tablet 100 mg PO .QHS Rx Instructions: AT HS carvedilol 25 mg Tablet 25 mg PO TID Qty: 90 11RF isosorbide mononitrate 60 mg Tablet Extended Release 24 Hr 60 mg PO BID lorazepam [Ativan] 1 mg tablet 1 mg PO Q6H PRN (Reason: anxiety) hydralazine 50 mg tablet 50 mg PO TID PRN (Reason: hypertension) Rx Instructions: States takes it if syst>150 Invokana 300 mg tablet 300 mg PO DAILY Qty: 30 11RF pantoprazole [Protonix] 40 mg tablet,delayed release (DR/EC) 40 mg PO BID Qty: 60 11RF clopidogrel 75 mg tablet 75 mg PO DAILY fluconazole 100 mg tablet 100 mg PO DAILY Rx Instructions: to take for 10 days Print Language: Colombian Instructions: Hemorrhoids (ED), Potassium Content of Foods List (ED), Hypokalemia (ED), Enteritis (ED) Referrals: Carlito Murillo MD [Primary Care Provider, Family Practice] - 1 week
[2025-04-01 20:05] LABS: Bacteria Urine NONE SEEN #/HPF (NONE SEEN); Cast Seen? NONE SEEN #/LPF (NONE SEEN); Crystals Seen? None Seen #/HPF (None Seen); Mucus Urine NONE SEEN (NONE SEEN); RBC Urine NONE SEEN #/HPF (0-2); Squamous Epithelial Cell Urine RARE #/LPF (NONE/RARE); Urine Culture Indicated NO; WBC Urine 0-2 #/HPF (NONE SEEN)
== END 2025-04-01 20:14 | disposition home or self-care (01) ==
PROVIDERS: Physician Assistant; Emergency Provider Emergency Medicine; PCP Family Medicine
DX: K52.9 Noninfective gastroenteritis and colitis, unspecified (principal); K64.5 Perianal venous thrombosis; E87.6 Hypokalemia; Z87.891 Personal history of nicotine dependence
CPT/HCPCS: 36415; 74176; 80053; 81001; 85025; 87045; 87046; 87427; 87493; 96361; 96374; 99285; G0328; J2405

== ENCOUNTER 2025-04-09 11:46 | Outpatient (OUT) | payer MEDICAID, SELFPAY ==
--- OUTSIDE RECORDS SUMMARY | 2025-04-09 11:53 | XMS_ITS | CCD ---
Author Organization [facility] CliniSywa Care Team Providers Care Etl Manager Name Role Phone Kendra Moran Primary Care [...] Unavailable Kendra Moran MD Primary Care Provider [phone] FARZANA ELY Attending Unavailable KENDRA MORAN Referring [...] Propensity to adverse reactions (disorder) [facility] Repository (4 sources) ALPRAZolam; Translations: [ALPRAZOLAM] Drug Allergy 4 Abnormal Behavior [facility] Repository (5 sources) amLODIPine; Translations: [AMLODIPINE] Drug Allergy 4 Other (See Comments) [facility] Repository (5 sources) Lisinopril; Translations: [LISINOPRIL] Drug Allergy 4 Cough [facility] Repository (1 source) LORazepam Drug Allergy 5 Unknown Reaction [facility] Medications Current Medications Medication Drug [...] 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 Please call patient and let her know that I've requested the test results from [facility] ([facility]) Ill be able to discuss the results with her tomorrow Thank you [facility] 02-26-2025 36 Patient called regarding IR venography she had done 02/07. Requesting to discuss results and how she should follow up per Dr. Christie [facility] Office Visiton 02-26-2025 Follow-up visit [id number] Aby Madrigal 1965 F Date Provider Department Center 02/26/2025 [facility]-GOMEZ SPENCE [facility] Family History Problem Relation Age of Onset Lung cancer Mother Accidental Father Lung cancer Sister Family Status - Relation Status Age at Mother Father Sister Brother Alive Level of Service:49795 [place] OFFICE/OUTPATIENT ESTABLISHED LOW MDM 20 MIN Normal [facility] Telephoneon 02-26-2025 Telephone [id number] Aby Madrigal 1965 F Date Provider Department Center 02/26/2025 JESSY MATSON [facility] NEPH [facility] Family History Problem Relation Age of Onset Lung cancer Mother Accidental Father Lung cancer Sister Family Status - Relation Status Age at Mother Father Sister Brother Alive Normal [facility] Cortisol [Mass/Vol]on 2024 CORTISOL 5.2 ug/dL Normal [facility] Comment on above: Result Comment: Due to the diurnal variation of cortisol levels in normal subjects, all cortisol measurements should be referenced to the time of day of sample collection. AM Cortisol Age>=6 6.7-22.4 ug/dL PM Cortisol Age>=6 <10 ug/dL Performed By: #### 2 143-6 #### [facility] ([id number]) [address] [place] [address], [place] [address] CORTISOL 5.2 ug/dL Normal [facility] Comment on above: Result Comment: Due to the diurnal variation of cortisol levels in normal subjects, all cortisol measurements should be referenced to the time of day of sample collection. AM Cortisol Age>=6 6.7-22.4 ug/dL PM Cortisol Age>=6 <10 ug/dL Performed By: #### 2 143-6 #### [facility] ([id number]) [address] [place] [address], [address] [place] [address] CORTISOL 10.9 ug/dL Normal [facility] Comment on above: Result Comment: Due to the diurnal variation of cortisol levels in normal subjects, all cortisol measurements should be referenced to the time of day of sample collection. AM Cortisol Age>=6 6.7-22.4 ug/dL PM Cortisol Age>=6 <10 ug/dL Performed By: #### 2 143-6 #### [facility] ([id number]) [address], [address] [place] [address] CORTISOL 11.1 ug/dL Normal [facility] Comment on above: Result Comment: Due to the diurnal variation of cortisol levels in normal subjects, all cortisol measurements should be referenced to the time of day of sample collection. AM Cortisol Age>=6 6.7-22.4 ug/dL PM Cortisol Age>=6 <10 ug/dL Performed By: #### 2 143-6 #### [facility] ([id number]) [address], [address] [place] [address] CORTISOL 5.7 ug/dL Normal [facility] Comment on above: Result Comment: Due to the diurnal variation of cortisol levels in normal subjects, all cortisol measurements should be referenced to the time of day of sample collection. AM Cortisol Age>=6 6.7-22.4 ug/dL PM Cortisol Age>=6 <10 ug/dL Performed By: #### 2 143-6 #### [facility] ([id number]) [address], [address] [place] [address] CORTISOL 14.3 ug/dL Normal [facility] Comment on above: Result Comment: Due to the diurnal variation of cortisol levels in normal subjects, all cortisol measurements should be referenced to the time of day of sample collection. AM Cortisol Age>=6 6.7-22.4 ug/dL PM Cortisol Age>=6 <10 ug/dL Performed By: #### 2 143-6 #### [facility] ([id number]) [address] [facility], [address] ORDERon 025 TEST NAME AIVC INFERIOR VENA CAVA Normal [facility] Comment on above: Result Comment: Cody ected on 02/07 AT 1204: Previously reported as INFERIOR VENA CAVA TEST RESULT SEE COMMENTS 02/10/2025 12:12 AM Normal [facility] Comment on above: Result Comment: NOTE Test Result Flag Unit RefValue Aldosterone, IVC <4.0 ng/dL Not applicable ADDITIONAL INFORMATION This test was developed and its performance characteristics determined by [facility] in a manner consistent with CLIA requirements. This test has not been cleared or approved by the U.S. Food and Drug Administration. Test Performed by: [facility] [address] [place] [address] Ash Worker: Shawanda Jimenez Ph.D.; CLIA# [id number] Result Comment: NOTE Test Result Flag Unit RefValue Aldosterone, LAV 32 ng/dL Not applicable ADDITIONAL INFORMATION This test was developed and its performance characteristics determined by [facility] in a manner consistent with CLIA requirements. This test has not been cleared or approved by the U.S. Food and Drug Administration. Test Performed by: [place] [address] Ash Worker: Shawanda Jimenez Ph.D.; CLIA# [id number] Result Comment: NOTE Test Result Flag Unit RefValue Aldosterone, LAV 28 ng/dL Not applicable ADDITIONAL INFORMATION This test was developed and its performance characteristics determined by [facility] in a manner consistent with CLIA requirements. This test has not been cleared or approved by the U.S. Food and Drug Administration. Test Performed by: [facility] [place] [address] Ash Worker: Shawanda Jimenez Ph.D.; CLIA# [id number] Result Comment: NOTE Test Result Flag Unit RefValue Aldosterone, KELLEY <4.0 ng/dL Not applicable ADDITIONAL INFORMATION This test was developed and its performance characteristics determined by [facility] in a manner consistent with CLIA requirements. This test has not been cleared or approved by the U.S. Food and Drug Administration. Test Performed by: [facility] [place] [address] Ash Worker: Shawanda Jimenez Ph.D.; CLIA# [id number] Result Comment: NOTE Test Result Flag Unit RefValue Aldosterone, KELLEY 74 ng/dL Not applicable ADDITIONAL INFORMATION This test was developed and its performance characteristics determined by [facility] in a manner consistent with CLIA requirements. This test has not been cleared or approved by the U.S. Food and Drug Administration. Test Performed by: [place] [address] Ash Worker: Shawanda Jimenez Ph.D.; CLIA# [id number] TEST NAME ALAV LEFT ADRENAL Normal [facility] TEST NAME ALAV LEFT ADRENAL Normal [facility] TEST NAME ARAV RIGHT ADRENAL Normal [facility] TEST NAME ARAV RIGHT ADRENAL Normal [facility] Telephoneon 01-18-2025 Telephone [id number] EmmadamianAby spence Cristina 1965 F Date Provider Department [place] 01/18/[id number]-DOJLBFENG [facility] Family History Problem Relation Age of Onset Lung cancer Mother Accidental Father Lung cancer Sister Family Status - Relation Status Age at Mother Father Sister Brother Alive Normal [facility] Follow-Upon 01-09-2025 Follow-Up [id number] EmmadamianAby spence S 1965 F Date Provider Department [place] 01/09/[id number]-[id number] [facility] Family History Problem Relation Age of Onset Lung cancer Mother No Known Problems Father Lung cancer Sister Family Status - Relation Status Age at Mother Father Sister Level of Service:74775 [place] OFFICE/OUTPATIENT ESTABLISHED LOW MDM 20 MIN [facility] 36on 01-04-2025 36 Called patient's daughter at [...] time. Melanie thanked me for the call [facility] 36on 01-03-2025 36 Voicemail. Patient's daughter called in, she thought Dr. Christie was going to order testing where they go in through the groin to see which kidney is dumping off excess hormones, she would like a call back. [facility] Telephoneon 01-03-2025 Telephone [id number] Aby Madrigal 1965 F Date Provider Department Center 01/03/2025 [id number], [facility] ENDOCR [facility] Family History Problem Relation Age of Onset Lung cancer Mother No Known Problems Father Lung cancer Sister Family Status - Relation Status Age at Mother Father Sister [facility] ALDOSTERONEon 01-02-2025 ALDOSTERONE (NG/DL) IN SER/PLAS 7.3 ng/dL [facility] Comment on above: Result Comment: INTE RPRETIVE [...] reference intervals for this test in the [facility] Test Directory (Crocs). Performed By: [facility] [address] [place] [address] Machine Filler Servicer: Navneet Simeon MD, PhD CLIA Number: [id number] Performed By: #### L [id number] #### [facility] (BEAKER) [address] [place] [address] ALDOSTERONE (NG/DL) IN SER/PLAS 14.2 ng/dL Normal [facility] Comment on above: [...] reference intervals for this test in the [facility] Test Directory (Crocs). Performed By: [facility] [address] [place] [address] Machine Filler Servicer: Navneet Simeon MD, PhD CLIA Number: [id number] Performed By: #### L [id number] #### [facility] (BEAKER) [address] [place] [address] CORTISOLon 01-02-2025 CORTISOL (UG/DL) IN SER/PLAS 3.6 ug/dL Normal 0-9 [facility] Comment on above: Performed By: #### L [id number] #### [facility] (BEAKER) [address] [place] [address] CORTISOL (UG/DL) IN SER/PLAS 9.0 ug/dL Normal 6-23 [facility] Comment on above: Performed By: #### L [id number] #### [facility] (BEAKER) [address] [place] [address] NURSNOTEon 01-02-2025 NURSNOTE T-9=[id number], at this ti me VS taken, IV [...] pt up to BR and released. Normal [facility] POTASSIUMon 01-02-2025 Potassium [Moles/Vol] 3.9 mmol/L Normal 3.5-5.1 [facility] Comment on above: Performed By: #### L [id number] ####[facility] ([place])[address] [place] [address] Potassium [Moles/Vol] 4.0 mmol/L Normal 3.5-5.1 [facility] Comment on above: Performed By: #### L [id number] #### [facility] ([place]) [address] [place] [address] RENIN ACTIVITYon 01-02-2025 RENIN ACTIVITY <0.1 Normal [facility] Comment on above: [...] developed and its performance characteristics determined by [facility]. It has not been cleared or approved by the US Food and Drug Administration. This test was performed in a CLIA certified laboratory and is intended for clinical purposes. Performed By: [facility] [address] [place] [address] Machine Filler Servicer: Navneet Simeon MD, PhD [place] Number: [id number] Performed By: #### L [id number] #### [facility] (BEAKER) [address] [place] [address] RENIN ACTIVITY <0.1 Normal [facility] Comment on above: [...] developed and its performance characteristics determined by [facility]. It has not been cleared or approved by the US Food and Drug Administration. This test was performed in a CLIA certified laboratory and is intended for clinical purposes. Performed By: [facility] [address] [place] [address] Machine Filler Servicer: Navneet Simeon MD, PhD CLIA Number: [id number] Performed By: #### L [id number] #### [facility] (BEAKER) [address] [place] [address] Orders Onlyon 01-01-2025 Orders Only [id number] Aby Madrigal 1965 F Date Provider Department Center 01/01/2025 RAMU KONG [facility] 2A Second Fl Family History Problem Relation Age of Onset Lung cancer Mother No Known Problems Father Lung cancer Sister Family Status - Relation Status Age at Mother Father Sister Normal [facility] Orders Only [id number] Strausbaugh,Aby S 1965 F Date Provider Department Center 01/01/2025 [id number] NIELSEN [facility] 2A Second Fl Family History Problem Relation Age of Onset Lung cancer Mother No Known Problems Father Lung cancer Sister Family Status - Relation Status Age at Mother Father Sister Normal [facility] Orders Onlyon 12-26-2024 Orders Only [id number] Strausbaugh,Aby S 1965 F Date Provider Department Center 12/26/2024 [id number] WILKERSON [facility] 2A Second Fl Family History Problem Relation Age of Onset Lung cancer Mother No Known Problems Father Lung cancer Sister Family Status - Relation Status Age at Mother Father Sister Normal [facility] Orders Only [id number] Strausbaugh,Aby S 1965 F Date Provider Department Center 12/26/2024 [id number] BLACKMAN [facility] 2A Second Fl Family History Problem Relation Age of Onset Lung cancer Mother No Known Problems Father Lung cancer Sister Family Status - Relation Status Age at Mother Father Sister Normal [facility] Orders Only [id number] Strausbaugh,Aby S 1965 F Date Provider Department Center 12/26/2024 USHA LARSON [facility] 2A Second Fl Family History Problem Relation Age of Onset Lung cancer Mother No Known Problems Father Lung cancer Sister Family Status - Relation Status Age at Mother Father Sister Normal [facility] 36on 12-25-2024 36 Patient has not hear d from the [facility] about scheduling this, she is going to reach out to them directly, but could someone reach out to the [facility] about what's going on? Normal [facility] Orders Onlyon 12-25-2024 Orders Only [id number] Strausbaugh,Aby S 1965 F Date Provider Department Center 12/25/2024 175GIBSON NIELSEN [facility] 2A Second Fl Family History Problem Relation Age of Onset Lung cancer Mother No Known Problems Father Lung cancer Sister Family Status - Relation Status Age at Mother Father Sister Normal [facility] Orders Only [id number] Strausbaugh,Aby S 1965 F Date Provider Department Center 12/25/2024 JOSE SALDIVAR INF DCC Family History Problem Relation Age of Onset Lung cancer Mother No Known Problems Father Lung cancer Sister Family Status - Relation Status Age at Mother Father Sister Normal [facility] 36on 12-12-2024 36 Antonio I signed the orders for saline infusion test back on Oct 12 (its a Therapy Plan) Can we call the [facility] and ask what more do they need to get the patient scheduled thanks [facility] 36on 12-08-2024 36 Patient had not hear d from the [facility] about scheduling a Saline Infusion Test, when I look into the chart, I cannot find any orders [facility] Telephoneon 12-08-2024 Telephone [id number] Aby Madrigal S 1965 F Date Provider Department Center 12/08/2024 [id number], [facility] ENDOCR [facility] Family History Problem Relation Age of Onset Lung cancer Mother No Known Problems Father Lung cancer Sister Family Status - Relation Status Age at Mother Father Sister Normal [facility] Abstracton 11-21-2024 Abstract [id number] Aby Madrigal S 1965 F Date Provider Department Center 11/21/202425190-[id number]-WYVDARA CARTER ONC DCC Family History Problem Relation Age of Onset Lung cancer Mother No Known Problems Father Lung cancer Sister Family Status - Relation Status Age at Mother Father Sister Normal [facility] CT CHEST WO IV CONTRASTon CT CHEST [...] Marlon Green MD. 5 Invalid Interpretation Code [facility] Office Visiton 10-26-2024 Follow-up visit [id number] Aby Madrigal 1965 F Date Provider Department Center 10/26/2024 [id number] VIRAMONTES DCC ONC DCC Family History Problem Relation Age of Onset Lung cancer Mother No Known Problems Father Lung cancer Sister Family Status - Relation Status Age at Mother Father Sister Level of Service:24784 [place] OFFICE/OUTPATIENT ESTABLISHED SF MDM 10 MIN () Reason for Visit and Comments: Follow-up [[id number]] - F/U to review CT scan that was done today. 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 To confirm if you have primary aldosteronism were going to do something called a saline infusion test at the [facility] they will be in contact with you likely within the next week. This is a 2-hour test in which we infused saline 2 L and assess any changes in your aldosterone level. This is in a monitored setting so you will not be alone. Normal [facility] Follow-Upon 10-03-2024 Follow-Up [id number] Aby Madrigal 1965 F Date Provider Department Center 10/03/2024 [id number], [facility] ENDOCR [facility] Family History Problem Relation Age of Onset Lung cancer Mother No Known Problems Father Lung cancer Sister Family Status - Relation Status Age at Mother Father Sister Level of Service:19886 [place] OFFICE/OUTPATIENT ESTABLISHED MOD MDM 30 MIN Reason for Visit and Comments: Follow-up [[id number]] Normal [facility] Office Visiton 09-04-2024 Follow-up visit [id number] Aby Madrigal 1965 F Date Provider Department Center 09/04/2024 [facility] RIAZ [facility] Family History Problem Relation Age of Onset Lung cancer Mother No Known Problems Father Lung cancer Sister Family Status - Relation Status Age at Mother Father Sister Level of Service:46889 [place] OFFICE/OUTPATIENT ESTABLISHED MOD MDM 30 MIN Normal [facility] ALDOSTERONEon 08-29-2024 ALDOSTERONE (NG/DL) IN SER/PLAS 13.0 ng/dL Normal [facility] Comment on above: [...] reference intervals for this test in the [facility] Test Directory (Crocs). Performed By: [facility] [address] [place] [address] Machine Filler Servicer: Navneet Simeon MD, PhD CLIA Number: [id number] Performed By: #### L [id number] #### [facility] (BEAKER) [address] [place] [address] Ron 08-29-2024 ALT [Catalytic activity/Vol] 25 U/L Normal 7-52 [facility] Comment on above: Performed By: #### L [id number] #### [facility] (BEAKER) [address] [place] [address] Riki 08-29-2024 AST [Catalytic activity/Vol] 21 U/L Normal 13-39 [facility] Comment on above: Performed By: #### L [id number] #### [facility] (BEAKER) [address] [place] [address] BASIC METABOLIC PANELon 10-0 Anion gap [Moles/Vol] 12 mmol/L Normal 7-20 [facility] Comment on above: Performed By: #### L [id number] ####[facility] ([facility])[address] [place] [address] Calcium [Mass/Vol] 9.3 mg/dL Normal 8.6-10.3 [facility] Comment on above: Performed By: #### L [id number] ####[facility] ([facility] [place] [address] Chloride [Moles/Vol] 105 mmol/L Normal 98-107 [facility] Comment on above: Performed By: #### L [id number] ####[facility] ([facility] [place] [address] CO2 [Moles/Vol] 28 mmol/L Normal 21-31 [facility] Comment on above: Performed By: #### L [id number] ####[facility] ([facility] [place] [place] [address] Creatinine [Mass/Vol] 0.95 mg/dL Normal 0.60-1.20 [facility] Comment on above: Performed By: #### L [id number] ####[facility] ([facility] [place] [address] GLOMERULAR FILTRATION RATE ML/MIN/1.73 SQ M.PREDICTED 68.6 mL/min/1.73m*2 Normal >60.0 [facility] Comment on above: Result Comment: [facility]???s estimated glomerular filtration rate (eGFR) [...] of individuals. Performed By: #### L [id number] ####[facility] ([facility])[address] [place] [address] Glucose [Mass/Vol] 99 mg/dL Normal 70-100 [facility] Comment on above: Performed By: #### L [id number] ####[facility] ([facility])[address] [place] [address] Potassium [Moles/Vol] 3.6 mmol/L Normal 3.5-5.1 [facility] Comment on above: Performed By: #### L [id number] ####[facility] ([facility])[address] [place] [address] Sodium [Moles/Vol] 141 mmol/L Normal 136-145 [facility] Comment on above: Performed By: #### L [id number] ####[facility] ([facility])[address] [place] [address] Urea nitrogen [Mass/Vol] 19 mg/dL Normal 7-25 [facility] Comment on above: Performed By: #### L [id number] ####[facility] ([facility])[address] [place] [address] UREA NITROGEN/CREATININE (MASS RATIO) IN SER/PLAS 20.0 Normal [facility] Comment on above: Performed By: #### L [id number] ####[facility] ([facility])[address] [place] [address] CORTISOLon 08-29-2024 CORTISOL (UG/DL) IN SER/PLAS 6.1 ug/dL Normal 0-9 [facility] Comment on above: Performed By: #### L [id number] ####[facility] (BEJO[place])[address] [place] [address] CT ABDOMEN PELVIS W AND WO I [...] Marybeth Bryan. [address] Invalid Interpretation Code [facility] DEXAMETHASONE LEVELon 2023 DEXAMETHASONE <50.0 Normal [facility] Comment on above: Order Comment: Blood test [...] developed and its performance characteristics determined by [facility]. It has not been cleared or approved by the US Food and Drug Administration. This test was performed in a CLIA certified laboratory and is intended for clinical purposes. Performed By: [facility] [address] [place] [address] Machine Filler Servicer: Navneet Simeon MD, PhD CLIA Number: [id number] Performed By: #### L [id number] #### [facility] ([facility]) [address] [place] [address] LIPID PANELon 08-29-2024 CHOL/HDL 2.4 mg/dL Normal [facility] Comment on above: Performed By: #### L [id number] #### [facility] ([facility]) [address] [place] [address] Cholesterol [Mass/Vol] 80 mg/dL Low 120-200 [facility] Comment on above: Performed By: #### L [id number] #### [facility] ([facility]) [address] [place] [address] Magnesium [Mass/Vol] 96 mg/dL Normal 40-149 [facility] Comment on above: Result Comment: TRIG LYCERIDE REFERENCE RANGE: 20 YEARS AND OLDER CARDIOVASCULAR RISK LESS THAN 150 mg/dL LOW RISK 150 TO 199 mg/dL BORDERLINE RISK 200 mg/dL AND GREATER HIGH RISK Performed By: #### L [id number] #### [facility] ([facility]) [address] [place] [address] Magnesium [Mass/Vol] 28 mg/dL Normal 0-160 [facility] Comment on above: Performed By: #### L [id number] #### [facility] ([facility]) [address] [place] [address] Magnesium [Mass/Vol] 33 mg/dL Normal 23-92 [facility] Comment on above: Performed By: #### L [id number] #### [facility] ([facility]) [address] [place] [address] NON HDL CHOL. (LDL+VLDL) 47 Normal [facility] Comment on above: Performed By: #### L [id number] #### [facility] ([facility]) [address] [place] [address] TOTAL VLDL-C 19 mg/dL Normal 0-40 [facility] Comment on above: Performed By: #### L [id number] #### [facility] ([facility]) [address] [place] [address] Labon 08-29-2024 Lab [id number] Aby Madrigal 1965 F Date Provider Department Center 08/29/2024 2245-[id number] OPD LAB RESOURCE [facility] OPD CT Medical C Family History Problem Relation Age of Onset Lung cancer Mother No Known Problems Father Lung cancer Sister Family Status - Relation Status Age at Mother Father Sister Normal [facility] RENIN ACTIVITYon 08-29-2024 RENIN ACTIVITY <0.1 Normal [facility] Comment on above: Result Comment: INTE RPRETIVE INFORMATION: Renin Activity Adult, Normal sodium diet: Supine ................. 0.2-1.6 ng/mL/hr Upright ................ 0.5-4.0 ng/mL/hr Children, Normal sodium diet, Supine: [place] (1-7 days) ..... 2.0-35.0 ng/mL/hr Cord blood [...] developed and its performance characteristics determined by [facility]. It has not been cleared or approved by the US Food and Drug Administration. This test was performed in a CLIA certified laboratory and is intended for clinical purposes. Performed By: [facility] [address] [place] [address] Machine Filler Servicer: Navneet Simeon MD, PhD CLIA Number: [id number] Performed By: #### L [id number] #### [facility] ([facility]) [address] [place] [address] 36on 08-10-2024 36 Updated patient on Nodify blood test results and plan for f/u CT and appt scheduled for 10/26/24. [facility] Letter (Out)on 08-09-2024 Letter (Out) [id number] Aby Madrigal 1965 F Date Provider Department Center 08/09/2024 None-None [facility] ADMIT None Family History Problem Relation Age of Onset Lung cancer Mother No Known Problems Father Lung cancer Sister Family Status - Relation Status Age at Mother Father Sister [facility] 36on 08-08-2024 36 Called patient over the phone at 9:17 AM - discussed recent lab results from [facility] (including M cortisol of 1.7 after dex, renin undetectable, aldosterone level 4.4) - ruled out autonomous cortisol production - she has stopped spironolactone for about 2 weeks now, continue to hold this until our next appt and we will reassess ARR. We will meet again on Oct 03 She thanked me for the call [facility] Orders Onlyon 08-08-2024 Orders Only [id number] Aby Madrigal 1965 F Date Provider Department Center 08/08/2024 Julio C-RICHA VIRAMONTES DCC ONC DCC Family History Problem Relation Age of Onset Lung cancer Mother No Known Problems Father Lung cancer Sister Family Status - Relation Status Age at Mother Father Sister [facility] Telephoneon 08-08-2024 Telephone [id number] Aby Madrigal 1965 F Date Provider Department Center 08/08/2024 [id number], [facility] ENDOCR [facility] Family History Problem Relation Age of Onset Lung cancer Mother No Known Problems Father Lung cancer Sister Family Status - Relation Status Age at Mother Father Sister Normal [facility] Telemedicineon 07-20-2024 Telemedicine [id number] Aby Madrigal 1965 F Date Provider Department Center 07/20/2024 Julio C-RICHA VIRAMONTES DCC ONC DCC Family History Problem Relation Age of Onset Lung cancer Mother No Known Problems Father Lung cancer Sister Family Status - Relation Status Age at Mother Father Sister Level of Service:85632 [place] PHYS/QHP TELEPHONE EVALUATION 21-30 MIN () Reason for Visit and Comments: 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 CT CHEST 04-21-24- PET 06-21-24 Films requested - 07-18-24 HAVING HARD TIME GETTING FILMS FROM [place] AGAIN. Ginny at [facility] ([phone] direct line) is working on sending them. CHECK [facility] FOR FILMS PLEASE Normal [facility] 37on 07-18-2024 37 It was [...] lab work done at one of these [facility] Lab Sites The results will then come straight to me I appreciate it [facility] [address], [place] Hours Wednesday - Wednesday 8 AM - 4PM (Closed 12 - 12:30 PM daily) Phone: [facility] [address] Hours: Wednesday - Wednesday 6 AM - 5 PM Wednesday: 7 AM - 2 PM Phone: [address] [place] Hours: Wednesday - Wednesday 7 AM - 3:30 PM Phone: [facility] [address] Hours: Wednesday - Wednesday 7 AM - 5:30 PM Phone: Kayy Maurer [facility] [address], [place] Hours: Wednesday - Wednesday 8 AM - 4:30 PM Phone: [facility] EDNURSon 07-18-2024 EDNURS ADR and relevant inf o reported to [facility] in pharmacy d/t safety net being down. Viet Kelly RN 07/18/24 1139 [facility] EDNURS SENT FROM MD OFFICE RE: LOW BP; RECENT DC FROM [facility] FOR SAME [facility] EDPROVon 07-18-2024 EDPROV HPI Chief Complaint Patient [...] new meds yesterday. History provided by: Patient asl interpreter used: No [place] Coma Scale Score: 15 Patient History Past Medical History: Diagnosis Date Abnormal ECG Diabetes mellitus ([facility]) Hyperlipidemia Hypertension Obstructive sleep apnea Panic attacks Stroke ([facility]) Past Surgical History: Procedure Laterality Date [...] mouth i (more content not included)... Normal [facility] Office Visiton 07-18-2024 Follow-up visit [id number] Aby Madrigal Cristina 1965 Date Provider Department Center 07/18/2024 [id number] [facility] ENDOCRUST Family History Problem Relation Age of Onset Lung cancer Mother No Known Problems Father Lung cancer Sister Family Status - Relation Status Age at Mother Father Sister Level of Service:56569 [place] OFFICE/OUTPATIENT NEW MODERATE MDM 45 MINUTES Reason for Visit and Comments: Nodules [Other] Normal [facility] Follow-up visit [id number] EmmadamianAby spence Cristina 1965 Provider Department Center 07/18/[id number] [facility] Family History Problem Relation Age of Onset Lung cancer Mother No Known Problems Father Lung cancer Sister Family Status - Relation Status Age at Mother Father Sister Level of Service:NOCHG [place]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 I am calling you to [...] Patient Name Aby Madrigal Date 07/13/24 Normal [facility] Telephoneon 07-13-2024 Telephone [id number] Aby Madrigal 1965 F Date Provider Department Center 07/13/2024 Adela-GINNY GARCIA [facility] Family History Problem Relation Age of Onset Lung cancer Mother No Known Problems Father Lung cancer Sister Family Status - Relation Status Age at Mother Father Sister Reason for Visit and Comments: Hospital Follow-up [832] Normal [facility] 30on 07-12-2024 30 The patient [...] to address these barriers include . Normal [facility] ANTI-XA (HEPARIN LEVEL)on HEPARIN UNFRACTIONATED (U/ML) IN PPP BY CHROMOGENIC METHOD 0.60 IU/mL Normal 0.3-0.7 [facility] Comment on above: Order Comment: Check anti-Xa level every 6 hours while on heparin infusion, or per protocol. Result Comment: [place]lers roxaban and Apixaban will interfere with the anti Xa assay used to monitor UFH and LMWH. Performed By: #### L [id number] ####[facility] ([facility]AKER)[address] [place] [address] BASIC METABOLIC PANELon 06-23 Anion gap [Moles/Vol] 10 mmol/L Normal 7-20 [facility] Comment on above: Performed By: #### L [id number] #### [facility] ([facility]) [address] [place] [address] Calcium [Mass/Vol] 8.8 mg/dL Normal 8.6-10.3 [facility] Comment on above: Performed By: #### L [id number] #### [facility] ([facility]) [address] [place] [address] Chloride [Moles/Vol] 108 mmol/L High 98-107 [facility] Comment on above: Performed By: #### L [id number] #### [facility] ([facility]) [address] [place] [address] CO2 [Moles/Vol] 27 mmol/L Normal 21-31 [facility] Comment on above: Performed By: #### L [id number] #### [facility] ([facility]) [address] [place] [address] Creatinine [Mass/Vol] 0.89 mg/dL Normal 0.60-1.20 [facility] Comment on above: Performed By: #### L [id number] #### [facility] ([facility]) [address] [place] [address] GLOMERULAR FILTRATION RATE ML/MIN/1.73 SQ M.PREDICTED 74.2 mL/min/1.73m*2 Normal >60.0 [facility] Comment on above: Result Comment: [facility]???s estimated glomerular filtration rate (eGFR) [...] group of individuals. Performed By: #### L [id number] #### [facility] ([facility]) [address] [place] [address] Glucose [Mass/Vol] 109 mg/dL High 70-100 [facility] Comment on above: Performed By: #### L [id number] #### [facility] ([facility]) [address] [place] [address] Potassium [Moles/Vol] 3.4 mmol/L Low 3.5-5.1 [facility] Comment on above: Performed By: #### L [id number] #### [facility] ([facility]) [address] [place] [address] Sodium [Moles/Vol] 142 mmol/L Normal 136-145 [facility] Comment on above: Performed By: #### L [id number] #### [facility] ([facility]) [address] [place] [address] Urea nitrogen [Mass/Vol] 11 mg/dL Normal 7-25 [facility] Comment on above: Performed By: #### L [id number] #### [facility] ([facility]) [address] [place] [address] UREA NITROGEN/CREATININE (MASS RATIO) IN SER/PLAS 12.4 Normal [facility] Comment on above: Performed By: #### L [id number] #### [facility] ([facility]) [address] [place] [address] CBC WITH AUTO DIFFERENTIALon 07-12-2024 Basophils (Bld) [#/Vol] 0.04 10*3/uL Normal 0.00-0.20 [facility] Comment on above: Performed By: #### L [id number] #### [facility] ([facility]) [address] [place] [address] Basophils/100 WBC (Bld) 0.6 % Normal 0.0-1.0 [facility] Comment on above: Performed By: #### L [id number] #### [facility] ([facility]) [address] [place] [address] Eosinophils (Bld) [#/Vol] 0.22 10*3/uL Normal 0.00-0.50 [facility] Comment on above: Performed By: #### L [id number] #### [facility] (BEAK[facility]) [address] [place] [address] Eosinophils/100 WBC (Bld) 3.5 % Normal 0.0-6.0 [facility] Comment on above: Performed By: #### L [id number] #### [facility] ([facility]) [address] [place] [address] Erythrocyte distribution width (RBC) [Ratio] 14.5 % Normal 11.5-15.0 [facility] Comment on above: Performed By: #### L [id number] #### [facility] ([facility]) [address] [place] [address] ERYTHROCYTE MEAN CORPUSCULAR HEMOGLOBIN CONCENTRATION (G/DL) BY AUTOMATED 32.7 g/dL Normal 32.0-35.0 [facility] Comment on above: Performed By: #### L [id number] #### [facility] ([facility]) [address] [place] [address] Hematocrit (Bld) [Volume fraction] 34.2 % Low 36.0-48.0 [facility] Comment on above: Performed By: #### L [id number] #### [facility] ([facility]) [address] [place] [address] Hemoglobin (Bld) [Mass/Vol] 11.2 g/dL Low 12.0-15.0 [facility] Comment on above: Performed By: #### L [id number] #### [facility] ([facility]) [address] [place] [address] Immature granulocytes (Bld) [#/Vol] 0.01 10*3/uL Normal 0.00-0.20 [facility] Comment on above: Performed By: #### L [id number] #### [facility] ([facility]) [address] [place] [address] Immature granulocytes/100 WBC (Bld) 0.2 % Normal 0.0-1.0 [facility] Comment on above: Performed By: #### L [id number] #### [facility] ([facility]) [address] [place] [address] Lymphocytes (Bld) [#/Vol] 2.37 10*3/uL Normal 1.20-4.00 [facility] Comment on above: Performed By: #### L [id number] #### [facility] ([facility]) [address] [place] [address] Lymphocytes/100 WBC (Bld) 37.8 % Normal 20.0-45.0 [facility] Comment on above: Performed By: #### L [id number] #### [facility] ([facility]) [address] [place] [address] MCH (RBC) [Entitic mass] 27.4 pg Normal 27.0-33.0 [facility] Comment on above: Performed By: #### L [id number] #### [facility] ([facility]) [address] [place] [address] MCV (RBC) [Entitic vol] 83.6 fL Normal 82.0-98.0 [facility] Comment on above: Performed By: #### L [id number] #### [facility] ([facility]) [address] [place] [address] Monocytes (Bld) [#/Vol] 0.43 10*3/uL Normal 0.10-1.00 [facility] Comment on above: Performed By: #### L [id number] #### [facility] ([facility]) [address] [place] [address] Monocytes/100 WBC (Bld) 6.9 % Normal 5.0-12.0 [facility] Comment on above: Performed By: #### L [id number] #### [facility] ([facility]) [address] [place] [address] Neutrophils (Bld) [#/Vol] 3.20 10*3/uL Normal 1.60-7.60 [facility] Comment on above: Performed By: #### L [id number] #### [facility] ([facility]) [address] [place] [address] Neutrophils/100 WBC (Bld) 51.0 % Normal 40.0-72.0 [facility] Comment on above: Performed By: #### L [id number] #### [facility] ([facility]) [address] [place] [address] NRBC (PER 100 WBCS) BY AUTOMATED COUNT 0.0 % Normal 0 [facility] Comment on above: Performed By: #### L [id number] #### [facility] ([facility]) [address] [place] [address] PLATELETS (10*3/UL) IN BLOOD AUTOMATED COUNT 223 10*3/uL Normal 150-400 [facility] Comment on above: Performed By: #### L [id number] #### [facility] ([facility]) [address] [place] [address] RBC (Bld) [#/Vol] 4.09 10*6/uL Normal 3.80-5.00 [facility] Comment on above: Performed By: #### L [id number] #### [facility] ([facility]) [address] [place] [address] WBC (Bld) [#/Vol] 6.27 10*3/uL Normal 4.00-10.60 [facility] Comment on above: Performed By: #### L [id number] #### [facility] ([facility]) [address] [place] [address] MAGNESIUMon 07-12-2024 Magnesium [Mass/Vol] 1.7 mg/dL Low 1.9-2.7 [facility] Comment on above: Performed By: #### L [id number] #### [facility] ([facility]) [address] [place] [address] POCT GLUCOSE METER UNSOLICIT ED RESULTSon 07-12-2024 Glucose [Mass/Vol] 102 mg/dL Normal 70-105 [facility] Comment on above: Order Comment: Waive d Testing in the ED is performed under the ED CLIA certificate #[id number]. Result Comment: brad mora Performed By: #### L [id number] #### [facility] ([facility]) [address] [place] [address] TROPONIN Ion 07-12-2024 Troponin I.cardiac [Mass/Vol] 0.01 ng/mL Normal 0.00-0.04 [facility] Comment on above: Performed By: #### L [id number] #### [facility] ([facility]) [address] [place] [address] 30on 07-11-2024 30 The patient is Moderately [...] and maintained or improved Outcome: Progressing Normal [facility] 30 The patient is Moderately [...] to address these barriers include . Normal [facility] ALDOSTERONEon 07-11-2024 ALDOSTERONE (NG/DL) IN SER/PLAS 4.9 ng/dL Normal [facility] Comment on above: [...] reference intervals for this test in the [facility] Test Directory ([employer]). Performed By: [facility] [address] [place] [address] Machine Filler Servicer: Navneet Simeon MD, PhD CLIA Number: [id number] Performed By: #### L [id number] #### [facility] ([facility]) [address] [place] [address] ANTI-XA (HEPARIN LEVEL)on HEPARIN UNFRACTIONATED (U/ML) IN PPP BY CHROMOGENIC METHOD 0.42 IU/mL Normal 0.3-0.7 [facility] Comment on above: Order Comment: Waive d Testing in the ED is performed under the ED CLIA certificate #[id number]. Result Comment: Radha roxaban and Apixaban will interfere with the anti Xa assay used to monitor UFH and LMWH. Performed By: #### L [id number] #### [facility] ([facility]) [address] [place] [address] HEPARIN UNFRACTIONATED (U/ML) IN PPP BY CHROMOGENIC METHOD 0.20 IU/mL Low 0.3-0.7 [facility] Comment on above: Order Comment: Check anti-Xa level every 6 hours while on heparin infusion, or per protocol. Result Comment: Radha roxaban and Apixaban will interfere with the anti Xa assay used to monitor UFH and LMWH. Performed By: #### L [id number] #### [facility] ([facility]ER) [address] [place] [address] APTTon 07-11-2024 ACTIVATED PARTIAL THROMBOPLASTIN TIME IN PPP BY COAGULATION ASSAY 43.0 Seconds High 25.0-35.0 [facility] Comment on above: Result Comment: Clin ical significance of the APTT is questionable in the presence of heparin. Performed By: #### L [id number] #### [facility] ([facility] [address] [place] [address] BASIC METABOLIC PANELon 08- Anion gap [Moles/Vol] 9 mmol/L Normal 7-20 [facility] Comment on above: Performed By: #### L [id number] #### [facility] ([facility]) [address] [address] Calcium [Mass/Vol] 8.8 mg/dL Normal 8.6-10.3 [facility] Comment on above: Performed By: #### L [id number] #### [facility] ([facility]) [address] [facility] [place] [address] Chloride [Moles/Vol] 108 mmol/L High 98-107 [facility] Comment on above: Performed By: #### L [id number] #### [facility] ([facility]) [address] [facility] [place] [place] [address] CO2 [Moles/Vol] 28 mmol/L Normal 21-31 [facility] Comment on above: Performed By: #### L [id number] #### [facility] ([facility]) [address] [place] [address] Creatinine [Mass/Vol] 1.09 mg/dL Normal 0.60-1.20 [facility] Comment on above: Performed By: #### L [id number] #### [facility] ([facility]) [address] [place] [address] GLOMERULAR FILTRATION RATE ML/MIN/1.73 SQ M.PREDICTED 58.2 mL/min/1.73m*2 Low >60.0 [facility] Comment on above: Result Comment: [facility]???s estimated glomerular filtration rate (eGFR) [...] individuals. Performed By: #### L [id number] #### [facility] ([facility]) [address] [place] [address] Glucose [Mass/Vol] 113 mg/dL High 70-100 [facility] Comment on above: Performed By: #### L [id number] #### [facility] ([facility]) [address] [place] [address] Potassium [Moles/Vol] 3.4 mmol/L Low 3.5-5.1 [facility] Comment on above: Performed By: #### L [id number] #### [facility] ([facility]) [address] [place] [address] Sodium [Moles/Vol] 142 mmol/L Normal 136-145 [facility] Comment on above: Performed By: #### L [id number] #### [facility] ([facility]) [address] [place] [address] Urea nitrogen [Mass/Vol] 14 mg/dL Normal 7-25 [facility] Comment on above: Performed By: #### L [id number] #### [facility] ([facility]) [address] [place] [address] UREA NITROGEN/CREATININE (MASS RATIO) IN SER/PLAS 12.8 Normal [facility] Comment on above: Performed By: #### L [id number] #### [facility] ([facility]) [address] [place] [address] CBC WITH AUTO DIFFERENTIALon 07-11-2024 Basophils (Bld) [#/Vol] 0.04 10*3/uL Normal 0.00-0.20 [facility] Comment on above: Performed By: #### L [id number] ####[facility] ([facility])[address] [place] [address] Basophils/100 WBC (Bld) 0.6 % Normal 0.0-1.0 [facility] Comment on above: Performed By: #### L [id number] ####[facility] ([facility])[address] [place] [address] Eosinophils (Bld) [#/Vol] 0.16 10*3/uL Normal 0.00-0.50 [facility] Comment on above: Performed By: #### L [id number] ####[facility] (BEAKER)[address] [place] [address] Eosinophils/100 WBC (Bld) 2.2 % Normal 0.0-6.0 [facility] Comment on above: Performed By: #### L [id number] ####[facility] (BEAKER)[address] [place] [address] Erythrocyte distribution width (RBC) [Ratio] 14.6 % Normal 11.5-15.0 [facility] Comment on above: Performed By: #### L [id number] ####[facility] (BEAKER)[address] [place] [address] ERYTHROCYTE MEAN CORPUSCULAR HEMOGLOBIN CONCENTRATION (G/DL) BY AUTOMATED 32.0 g/dL Normal 32.0-35.0 [facility] Comment on above: Performed By: #### L [id number] ####[facility] (BEAKER)[address] [place] [address] Hematocrit (Bld) [Volume fraction] 36.2 % Normal 36.0-48.0 [facility] Comment on above: Performed By: #### L [id number] ####[facility] (BEAKER)[address] [place] [address] Hemoglobin (Bld) [Mass/Vol] 11.6 g/dL Low 12.0-15.0 [facility] Comment on above: Performed By: #### L [id number] ####[facility] (BEAKER)[address] [place] [address] Immature granulocytes (Bld) [#/Vol] 0.02 10*3/uL Normal 0.00-0.20 [facility] Comment on above: Performed By: #### L [id number] ####[facility] (BEAKER)[address] [place] [address] Immature granulocytes/100 WBC (Bld) 0.3 % Normal 0.0-1.0 [facility] Comment on above: Performed By: #### L [id number] ####[facility] ([facility] [place] [address] Lymphocytes (Bld) [#/Vol] 2.34 10*3/uL Normal 1.20-4.00 [facility] Comment on above: Performed By: #### L [id number] ####[facility] ([facility] [place])[address] [place] [address] Lymphocytes/100 WBC (Bld) 32.6 % Normal 20.0-45.0 [facility] Comment on above: Performed By: #### L [id number] ####[facility] ([facility] [place] [place] [address] MCH (RBC) [Entitic mass] 27.2 pg Normal 27.0-33.0 [facility] Comment on above: Performed By: #### L [id number] ####[facility] ([facility] [place])[address] [place] [address] MCV (RBC) [Entitic vol] 85.0 fL Normal 82.0-98.0 [facility] Comment on above: Performed By: #### L [id number] ####[facility] (BEAKER)[address] [place] [address] Monocytes (Bld) [#/Vol] 0.49 10*3/uL Normal 0.10-1.00 [facility] Comment on above: Performed By: #### L [id number] ####[facility] (BEAKER)[address] [place] [address] Monocytes/100 WBC (Bld) 6.8 % Normal 5.0-12.0 [facility] Comment on above: Performed By: #### L [id number] ####[facility] (BEAKER)[address] [place] [address] Neutrophils (Bld) [#/Vol] 4.13 10*3/uL Normal 1.60-7.60 [facility] Comment on above: Performed By: #### L [id number] ####[facility] ([facility] [place])[address] [place] [address] Neutrophils/100 WBC (Bld) 57.5 % Normal 40.0-72.0 [facility] Comment on above: Performed By: #### L [id number] ####[facility] ([facility])[address] [place] [address] NRBC (PER 100 WBCS) BY AUTOMATED COUNT 0.0 % Normal 0 [facility] Comment on above: Performed By: #### L [id number] ####[facility] ([facility])[address] [place] [address] PLATELETS (10*3/UL) IN BLOOD AUTOMATED COUNT 245 10*3/uL Normal 150-400 [facility] Comment on above: Performed By: #### L [id number] ####[facility] ([facility])[address] [place] [address] RBC (Bld) [#/Vol] 4.26 10*6/uL Normal 3.80-5.00 [facility] Comment on above: Performed By: #### L [id number] ####[facility] ([facility])[address] [place] [address] WBC (Bld) [#/Vol] 7.18 10*3/uL Normal 4.00-10.60 [facility] Comment on above: Performed By: #### L [id number] ####[facility] ([facility] [place])[address] [place] [address] CONSULTon 07-11-2024 CONSULT -- Attestation signed by [...] Brown is the endocrine surgeon in the [place] area that would be most appropriate and [...] with plan for outpatient follow up with CT Cardiology and endocrine surgery and endocrinology Meseret Mac MD Cardiology Consult Note Reason for Consult: Chest pain HPI: Aby Madrigal is a 59 y.o. female patient is presenting as a transfer from [facility] for the evaluation of chest [...] medical history of Abnormal ECG, Diabetes mellitus ([facility]), Hyperlipidemia, Hypertension, Obstructive sleep apnea, Panic attacks, and Stroke ([facility]). Surgical History She has a past [...] Value Ventricular Rate 56 Atrial Rate 56 MN Interval 180 QRS DURATION 94 QT Interval 430 QTC (more content not included)... Normal [facility] EDPROVon 07-11-2024 EDPROV HPI Chief [...] Pt states she was trasnfered here from [place] to be transferred to cardiology. Pt states she had a cardiac stent placed last week. She denies fever, coughing, vomiting, abdominal pain. She admits diarrhea. She felt better when given ativan and worse when she was given morphine. She has had her gallbladder removed. History provided by: Patient asl interpreter used: No Chest Pain Associated symptoms: no abdominal pain, no cough, no fever and no vomiting [place] Coma Scale Score: 15 Patient History Past [...] signing this emergency patient record, the Emergency Physician/VETERINARIAN EPIDEMIOLOGIST/PA-C attests that all entries made into the electronic medical record by the scribe prior to the Physician/VETERINARIAN EPIDEMIOLOGIST/PA-C signature reflect an accurate accounting of the evaluation and care rendered by that Emergency Physician/VETERINARIAN EPIDEMIOLOGIST/PA-C. The Emergency Physician/VETERINARIAN EPIDEMIOLOGIST/PA-C assumes full responsibility for those entries. The Emergency Physician/VETERINARIAN EPIDEMIOLOGIST/PA-C also attests that any patient testing or treatment that was instituted by nursing staff. Normal [facility] EDPROV HPI Chief Complaint Patient [...] Pt states she was trasnfered here from [place] to be transferred to cardiology. Pt states she had a cardiac stent placed last week. She denies fever, coughing, vomiting, abdominal pain. She admits diarrhea. She felt better when given ativan and worse when she was given morphine. She has had her gallbladder removed. History provided by: Patient asl interpreter used: No Chest Pain Associated symptoms: [...] 07/11/24 1256 NSTEMI (non-ST elevated myocardial infarction) ([facility]) Medical Decision Making Amount and/or Complexity of Data Reviewed Labs: ordered. Decision-making details documented in ED Course. ECG/medicine tests: ordered and independent interpretation performed. Decision-making details documented in ED Course. Risk Drug therapy requiring intensive monitoring for toxicity. Decision regarding hospitalization. Minor surgery with identified risk factors. I, Basilia diallo (more content not included)... Invalid Interpretation Code [facility] POCT GLUCOSE METER UNSOLICIT ED RESULTSon 07-11-2024 Glucose [Mass/Vol] 122 mg/dL High 70-105 [facility] Comment on above: Order Comment: Waive d Testing in the ED is performed under the ED CLIA certificate #[id number]. Result Comment: [email or web address] Performed By: #### L [id number] #### [facility] ([employer]) [address] [place] [address] PROTIME-INRon 07-11-2024 INR IN PPP BY COAGULATION ASSAY 1.00 Normal 0.90-1.10 [facility] Comment on above: [...] CHEST 1995;108:[id number]. Performed By: #### L [id number] ####[facility] ([employer])[address] [place] [address] PROTHROMBIN TIME (PT) IN PPP BY COAGULATION ASSAY 13.2 Seconds Normal 12.3-14.8 [facility] Comment on above: Performed By: #### L [id number] ####[facility] [employer])[address] [place] [address] RENIN ACTIVITYon 07-11-2024 RENIN ACTIVITY <0.1 Normal [facility] Comment on above: Result Comment: INTE RPRETIVE INFORMATION: Renin Activity Adult, Normal sodium diet: Supine ................. 0.2-1.6 ng/mL/hr Upright ................ 0.5-4.0 ng/mL/hr Children, Normal sodium diet, Supine: [place] (1-7 days) ..... 2.0-35.0 ng/mL/hr Cord blood [...] developed and its performance characteristics determined by [employer]. It has not been cleared or approved by the US Food and Drug Administration. This test was performed in a CLIA certified laboratory and is intended for clinical purposes. Performed By: [facility] [address] [place] [address] Machine Filler Servicer: Navneet Simeon MD, PhD CLIA Number: [id number] Performed By: #### L [id number] #### [facility] (BEAKER) [address] [place] [address] TROPONIN Ion 07-11-2024 Troponin I.cardiac [Mass/Vol] 0.01 ng/mL Normal 0.00-0.04 [facility] Comment on above: Performed By: #### L [id number] #### [facility] (BEAKER) [address] [place] [address] Office Visiton 07-10-2024 Follow-up visit [id number] Aby Madrigal 1965 F Date Provider Department Center 07/10/2024 [id number] MITCHELL RIAZ [facility] Family History Problem Relation Age of Onset Lung cancer Mother No Known Problems Father Lung cancer Sister Family Status - Relation Status Age at Mother Father Sister Level of Service:67311 [place] OFFICE/OUTPATIENT ESTABLISHED MOD MDM 30 MIN Reason for Visit and Comments: Coronary Artery Disease [187] Post-Cath [731] Normal [facility] 36on 07-03-2024 36 Post Discharge Call Good morning, I am Ginny Garcia, RN a lead nurse from [facility]. I am calling you to [...] Patient Name Aby Madrigal Date 07/03/24 Normal [facility] Telephoneon 07-03-2024 Telephone [id number] Aby Madrigal 1965 F Date Provider Department Center 07/03/2024 Adela-GINNY GARCIA [facility] Family History Problem Relation Age of Onset Lung cancer Mother No Known Problems Father Lung cancer Sister Family Status - Relation Status Age at Mother Father Sister Reason for Visit and Comments: Hospital Follow-up [832] Normal [facility] 30on 07-01-2024 30 The patient [...] and maintained or improved Outcome: Progressing Normal [facility] BASIC METABOLIC PANELon 06-22 Anion gap [Moles/Vol] 14 mmol/L Normal 7-20 [facility] Comment on above: Performed By: #### L [id number] #### [facility] (BEAKER) [address] [place] [address] Calcium [Mass/Vol] 8.2 mg/dL Low 8.6-10.3 [facility] Comment on above: Performed By: #### L [id number] #### [facility] (BEAKER) [address] [place] [address] Chloride [Moles/Vol] 106 mmol/L Normal 98-107 [facility] Comment on above: Performed By: #### L [id number] #### [facility] (BEAKER) [address] [place] [address] CO2 [Moles/Vol] 25 mmol/L Normal 21-31 [facility] Comment on above: Performed By: #### L [id number] #### [facility] ([facility]) [address] [place] [address] Creatinine [Mass/Vol] 0.91 mg/dL Normal 0.60-1.20 [facility] Comment on above: Performed By: #### L [id number] #### [facility] ([facility]) [address] [facility] [address] GLOMERULAR FILTRATION RATE ML/MIN/1.73 SQ M.PREDICTED 72.2 mL/min/1.73m*2 Normal >60.0 [facility] Comment on above: Result Comment: [facility]???s estimated glomerular filtration rate (eGFR) [...] individuals. Performed By: #### L [id number] #### [facility] ([facility]) [address] [place] [address] Glucose [Mass/Vol] 101 mg/dL High 70-100 [facility] Comment on above: Performed By: #### L [id number] #### [facility] ([facility]) [address] [place] [address] Potassium [Moles/Vol] 3.5 mmol/L Normal 3.5-5.1 [facility] Comment on above: Performed By: #### L [id number] #### [facility] ([facility]) [address] [place] [address] Sodium [Moles/Vol] 141 mmol/L Normal 136-145 [facility] Comment on above: Performed By: #### L [id number] #### [facility] (BEAKER) [address] [place] [address] Urea nitrogen [Mass/Vol] 13 mg/dL Normal 7-25 [facility] Comment on above: Performed By: #### L [id number] #### [facility] ([facility]) [address] [place] [address] UREA NITROGEN/CREATININE (MASS RATIO) IN SER/PLAS 14.3 Normal [facility] Comment on above: Performed By: #### L [id number] #### [facility] ([facility]) [address] [place] [address] CBCon 07-01-2024 Erythrocyte distribution width (RBC) [Ratio] 15.4 % High 11.5-15.0 [facility] Comment on above: Performed By: #### L [id number] ####[facility] ([facility])[address] [place] [address] ERYTHROCYTE MEAN CORPUSCULAR HEMOGLOBIN CONCENTRATION (G/DL) BY AUTOMATED 32.1 g/dL Normal 32.0-35.0 [facility] Comment on above: Performed By: #### L [id number] ####[facility] ([facility])[address] [place] [address] Hematocrit (Bld) [Volume fraction] 38.6 % Normal 36.0-48.0 [facility] Comment on above: Performed By: #### L [id number] ####[facility] ([facility])[address] [place] [address] Hemoglobin (Bld) [Mass/Vol] 12.4 g/dL Normal 12.0-15.0 [facility] Comment on above: Performed By: #### L [id number] ####[facility] ([facility] [place] [address] MCH (RBC) [Entitic mass] 26.9 pg Low 27.0-33.0 [facility] Comment on above: Performed By: #### L [id number] ####[facility] ([facility] [place])[address] [place] [address] MCV (RBC) [Entitic vol] 83.7 fL Normal 82.0-98.0 [facility] Comment on above: Performed By: #### L [id number] ####[facility] ([facility] [place])[address] [place] [address] PLATELETS (10*3/UL) IN BLOOD AUTOMATED COUNT 238 10*3/uL Normal 150-400 [facility] Comment on above: Performed By: #### L [id number] ####[facility] ([facility])[address] [place] [address] RBC (Bld) [#/Vol] 4.61 10*6/uL Normal 3.80-5.00 [facility] Comment on above: Performed By: #### L [id number] ####[facility] ([facility] [place])[address] [place] [address] WBC (Bld) [#/Vol] 7.04 10*3/uL Normal 4.00-10.60 [facility] Comment on above: Performed By: #### L [id number] ####[facility] ([facility] [place])[address] [place] [address] LIPID PANELon 07-01-2024 CHOL/HDL 3.8 mg/dL Normal [facility] Comment on above: Performed By: #### L [id number] #### [facility] (BEAKER) [address] [place] [address] Cholesterol [Mass/Vol] 128 mg/dL Normal 120-200 [facility] Comment on above: Performed By: #### L [id number] #### [facility] (BEAKER) [address] [place] [address] Magnesium [Mass/Vol] 87 mg/dL Normal 40-149 [facility] Comment on above: Result Comment: TRIG LYCERIDE REFERENCE RANGE: 20 YEARS AND OLDER CARDIOVASCULAR RISK LESS THAN 150 mg/dL LOW RISK 150 TO 199 mg/dL BORDERLINE RISK 200 mg/dL AND GREATER HIGH RISK Performed By: #### L [id number] #### [facility] (BEAKER) [address] [place] [address] Magnesium [Mass/Vol] 77 mg/dL Normal 0-160 [facility] Comment on above: Performed By: #### L [id number] #### [facility] ([facility]) [address] [place] [address] Magnesium [Mass/Vol] 34 mg/dL Normal 23-92 [facility] Comment on above: Performed By: #### L [id number] #### [facility] ([facility]) [address] [place] [address] NON HDL CHOL. (LDL+VLDL) 94 Normal [facility] Comment on above: Performed By: #### L [id number] #### [facility] ([facility]) [address] [place] [address] TOTAL VLDL-C 17 mg/dL Normal 0-40 [facility] Comment on above: Performed By: #### L [id number] #### [facility] ([facility]) [address] [place] [address] MAGNESIUMon 07-01-2024 Magnesium [Mass/Vol] 2.0 mg/dL Normal 1.9-2.7 [facility] Comment on above: Performed By: #### L [id number] ####[facility] ([facility])[address] [place] [address] NURSNOTEon 07-01-2024 NURSNOTE Discharge instructio ns given, reviewed, questions, answered, signed, copy received. Normal [facility] POCT GLUCOSE METER UNSOLICIT ED RESULTSon 07-01-2024 Glucose [Mass/Vol] 124 mg/dL High 70-105 [facility] Comment on above: Order Comment: Waive d Testing in the ED is performed under the ED CLIA certificate #[id number]. Result Comment: [email or web address] Performed By: #### L [id number] ####[facility] ([facility])[address] [place] [address] Glucose [Mass/Vol] 106 mg/dL High 70-105 [facility] Comment on above: Order Comment: Waive d Testing in the ED is performed under the ED CLIA certificate #[id number]. Result Comment: [email or web address] Performed By: #### L [id number] #### [facility] ([facility]) [address] [facility] [place] [address] TROPONIN Ion 07-01-2024 Troponin I.cardiac [Mass/Vol] 0.09 ng/mL High 0.00-0.04 [facility] Comment on above: Performed By: #### L [id number] #### [facility] ([facility]) [address] [place] [address] 30on 06-30-2024 30 The patient is Moderately Stable - Low risk of patient condition declining or worsening The patient's goals for the shift include comfort, rest The clinical goals for the shift include stable vitals, comfort Problem: Pain - Adult Goal: Verbalizes/displays adequate comfort level or baseline comfort level Outcome: Not Progressing Normal [facility] 30 Daily Case Managemen t [...] PT Recommendations: OT Recommendations: New Consults: Normal [facility] 30 The patient is Moderately Stable - Low risk of patient condition declining or worsening The patient's goals for the shift include COMFORT The clinical goals for the shift include VSS Over the shift, the patient did not make progress toward the following goals. Barriers to progression include . Recommendations to address these barriers include . Normal [facility] ANTI-XA (HEPARIN LEVEL)on HEPARIN UNFRACTIONATED (U/ML) IN PPP BY CHROMOGENIC METHOD 0.64 IU/mL Normal 0.3-0.7 [facility] Comment on above: Order Comment: Check anti-Xa level every 6 hours while on heparin infusion, or per protocol. Result Comment: Antlers roxaban and Apixaban will interfere with the anti Xa assay used to monitor UFH and LMWH. Performed By: #### L [id number] ####[facility] ([facility])[address] [place] [address] BASIC METABOLIC PANELon 08-0 Anion gap [Moles/Vol] 11 mmol/L Normal 7-20 [facility] Comment on above: Performed By: #### L [id number] #### [facility] ([facility]) [address] [facility] [place] [address] Calcium [Mass/Vol] 8.3 mg/dL Low 8.6-10.3 [facility] Comment on above: Performed By: #### L [id number] #### [facility] ([facility]) [address] [place] [address] Chloride [Moles/Vol] 110 mmol/L High 98-107 [facility] Comment on above: Performed By: #### L [id number] #### [facility] ([facility]) [address] [place] [address] CO2 [Moles/Vol] 26 mmol/L Normal 21-31 [facility] Comment on above: Performed By: #### L [id number] #### [facility] ([facility]) [address] [facility] [place] [address] Creatinine [Mass/Vol] 0.81 mg/dL Normal 0.60-1.20 [facility] Comment on above: Performed By: #### L [id number] #### [facility] ([facility]) [address] [place] [address] GLOMERULAR FILTRATION RATE ML/MIN/1.73 SQ M.PREDICTED 83.1 mL/min/1.73m*2 Normal >60.0 [facility] Comment on above: Result Comment: [facility]???s estimated glomerular filtration rate (eGFR) [...] group of individuals. Performed By: #### L [id number] #### [facility] ([facility]) [address] [place] [address] Glucose [Mass/Vol] 110 mg/dL High 70-100 [facility] Comment on above: Performed By: #### L [id number] #### [facility] ([facility]) [address] [place] [address] Potassium [Moles/Vol] 3.7 mmol/L Normal 3.5-5.1 [facility] Comment on above: Performed By: #### L [id number] #### [facility] ([facility]) [address] [facility] [place] [address] Sodium [Moles/Vol] 143 mmol/L Normal 136-145 [facility] Comment on above: Performed By: #### L [id number] #### [facility] ([facility]) [address] [place] [address] Urea nitrogen [Mass/Vol] 10 mg/dL Normal 7-25 [facility] Comment on above: Performed By: #### L [id number] #### [facility] ([facility]) [address] [place] [address] UREA NITROGEN/CREATININE (MASS RATIO) IN SER/PLAS 12.3 Normal [facility] Comment on above: Performed By: #### L [id number] #### [facility] ([facility]) [address] [place] [address] CBCon 06-30-2024 Erythrocyte distribution width (RBC) [Ratio] 15.3 % High 11.5-15.0 [facility] Comment on above: Performed By: #### L [id number] #### [facility] ([facility] [address] [place] [address] ERYTHROCYTE MEAN CORPUSCULAR HEMOGLOBIN CONCENTRATION (G/DL) BY AUTOMATED 31.3 g/dL Low 32.0-35.0 [facility] Comment on above: Performed By: #### L [id number] #### [facility] ([facility]) [address] [place] [address] Hematocrit (Bld) [Volume fraction] 36.7 % Normal 36.0-48.0 [facility] Comment on above: Performed By: #### L [id number] #### [facility] ([facility]) [address] [place] [address] Hemoglobin (Bld) [Mass/Vol] 11.5 g/dL Low 12.0-15.0 [facility] Comment on above: Performed By: #### L [id number] #### [facility] ([facility]) [address] [place] [address] MCH (RBC) [Entitic mass] 26.9 pg Low 27.0-33.0 [facility] Comment on above: Performed By: #### L [id number] #### [facility] ([facility]) [address] [place] [address] MCV (RBC) [Entitic vol] 85.7 fL Normal 82.0-98.0 [facility] Comment on above: Performed By: #### L [id number] #### [facility] ([facility]) [address] [place] [address] PLATELETS (10*3/UL) IN BLOOD AUTOMATED COUNT 243 10*3/uL Normal 150-400 [facility] Comment on above: Performed By: #### L [id number] #### [facility] [facility] [address] [place] [address] RBC (Bld) [#/Vol] 4.28 10*6/uL Normal 3.80-5.00 [facility] Comment on above: Performed By: #### L [id number] #### [facility] ([facility]) [address] [place] [address] WBC (Bld) [#/Vol] 7.41 10*3/uL Normal 4.00-10.60 [facility] Comment on above: Performed By: #### L [id number] #### [facility] ([facility]) [address] [place] [address] CONSULTon 06-30-2024 CONSULT Cardiology Consult Note Reason for Consult: NSTEMI, transfer from [facility] HPI: Aby Madrigal, a 59 y.o. female patient, is transferred from [facility] for continuity of care. Past medical history includes: HTN History of TIA DMII HLD SURESH Overweight Patient reports that 3 days ago, she woke up in the mid of the night with indigestion, and a feeling fullness, but no pressure like chest pain. She presented to [facility], where she was found to [...] medical history of Abnormal ECG, Diabetes mellitus ([facility]/HCC), Hyperlipidemia, Hypertension, Obstructive sleep apnea, Panic attacks, and Stroke (CMS/[facility]). Surgical History She has a past [...] Value Ventricular Rate 71 Atrial Rate 71 MN Interval 176 QRS DURATION 92 QT Interval 424 QTC CALCULATION(BAZETT) 460 P [place] 52 R-[place] 19 T Wave [place] 164 Impression Normal sinus rhythm Left ventricular [...] Normal sinu (more content not included)... Normal [facility] HPon 06-30-2024 H&P reviewed. The patient was examined and there are no changes to the H&P. 59 y.o. year old female with a PMHx significant for DM2, hypertension presents a direct mission from [facility] with a chief complaint of [...] to proceed. Signed, Yris Oakley MD PGY-4 Party Demonstrator Pager: [phone] Normal [facility] POCT GLUCOSE METER UNSOLICIT ED RESULTSon 06-30-2024 Glucose [Mass/Vol] 170 mg/dL High 70-105 [facility] Comment on above: Order Comment: Waive d Testing in the ED is performed under the ED CLIA certificate #[id number]. Result Comment: [email or web address] Performed By: #### L [id number] #### [facility] ([facility]) [address] [place] [address] Glucose [Mass/Vol] 129 mg/dL High 70-105 [facility] Comment on above: Order Comment: Waive d Testing in the ED is performed under the ED CLIA certificate #[id number]. Result Comment: [email or web address] Performed By: #### L [id number] ####[facility] ([facility])[address] [facility] [place] [address] Glucose [Mass/Vol] 167 mg/dL High 70-105 [facility] Comment on above: Order Comment: Waive d Testing in the ED is performed under the ED CLIA certificate #[id number]. Result Comment: [email or web address] Performed By: #### L [id number] ####[facility] ([facility])[address] [place] [address] TROPONIN Ion 06-30-2024 Troponin I.cardiac [Mass/Vol] 0.07 ng/mL High 0.00-0.04 [facility] Comment on above: Performed By: #### L [id number] ####[facility] ([facility])[address] [place] [address] Troponin I.cardiac [Mass/Vol] 0.10 ng/mL High 0.00-0.04 [facility] Comment on above: Performed By: #### L [id number] ####[facility] ([facility])[address] [place] [address] Troponin I.cardiac [Mass/Vol] 0.11 ng/mL Critically high 0.00-0.04 [facility] Comment on above: Result Comment: M-TR OPONIN INITIAL CRITICAL HIGH; RESPUN AND RETESTED Performed By: #### L [id number] #### [facility] ([facility]) [address] [address] 30on 06-29-2024 30 The patient is Moderately Stable - Low risk of patient condition declining or worsening The patient's goals for the shift include COMFORT The clinical goals for the shift include VSS Normal [facility] APTTon 06-29-2024 ACTIVATED PARTIAL THROMBOPLASTIN TIME IN PPP BY COAGULATION ASSAY 34.5 Seconds Normal 25.0-35.0 [facility] Comment on above: Order Comment: Basel ine aPTT before initiating heparin infusion. Result Comment: Clin ical significance of the APTT is questionable in the presence of heparin. Performed By: #### L [id number] #### [facility] ([facility]) [address] [place] [address] B-TYPE NATRIURETIC PEPTIDEon 06-29-2024 Natriuretic peptide B (Bld) [Mass/Vol] 222 pg/mL High 0-100 [facility] Comment on above: Performed By: #### L [id number] #### [facility] ([facility]) [address] [place] [address] CBC WITH AUTO DIFFERENTIALon 06-29-2024 Basophils (Bld) [#/Vol] 0.05 10*3/uL Normal 0.00-0.20 [facility] Comment on above: Performed By: #### L [id number] #### [facility] ([facility]) [address] [place] [address] Basophils/100 WBC (Bld) 0.6 % Normal 0.0-1.0 [facility] Comment on above: Performed By: #### L [id number] #### [facility] ([facility]) [address] [place] [address] Eosinophils (Bld) [#/Vol] 0.18 10*3/uL Normal 0.00-0.50 [facility] Comment on above: Performed By: #### L [id number] #### [facility] ([facility] [place] [address] [place] [address] Eosinophils/100 WBC (Bld) 2.1 % Normal 0.0-6.0 [facility] Comment on above: Performed By: #### L [id number] #### [facility] ([facility]) [address] [place] [address] Erythrocyte distribution width (RBC) [Ratio] 14.9 % Normal 11.5-15.0 [facility] Comment on above: Performed By: #### L [id number] #### [facility] ([facility]) [address] [place] [address] ERYTHROCYTE MEAN CORPUSCULAR HEMOGLOBIN CONCENTRATION (G/DL) BY AUTOMATED 32.9 g/dL Normal 32.0-35.0 [facility] Comment on above: Performed By: #### L [id number] #### [facility] ([facility]) [address] [place] [address] Hematocrit (Bld) [Volume fraction] 35.9 % Low 36.0-48.0 [facility] Comment on above: Performed By: #### L [id number] #### [facility] ([facility]) [address] [place] [address] Hemoglobin (Bld) [Mass/Vol] 11.8 g/dL Low 12.0-15.0 [facility] Comment on above: Performed By: #### L [id number] #### [facility] ([facility]) [address] [place] [address] Immature granulocytes (Bld) [#/Vol] 0.03 10*3/uL Normal 0.00-0.20 [facility] Comment on above: Performed By: #### L [id number] #### [facility] ([facility] [place]) [address] [place] [address] Immature granulocytes/100 WBC (Bld) 0.3 % Normal 0.0-1.0 [facility] Comment on above: Performed By: #### L [id number] #### [facility] ([facility]) [address] [place] [address] Lymphocytes (Bld) [#/Vol] 2.02 10*3/uL Normal 1.20-4.00 [facility] Comment on above: Performed By: #### L [id number] #### [facility] ([facility] [place]) [address] [place] [address] Lymphocytes/100 WBC (Bld) 23.5 % Normal 20.0-45.0 [facility] Comment on above: Performed By: #### L [id number] #### [facility] ([facility] [place] [address] [place] [address] MCH (RBC) [Entitic mass] 27.2 pg Normal 27.0-33.0 [facility] Comment on above: Performed By: #### L [id number] #### [facility] ([facility]) [address] [place] [address] MCV (RBC) [Entitic vol] 82.7 fL Normal 82.0-98.0 [facility] Comment on above: Performed By: #### L [id number] #### [facility] ([facility]) [address] [place] [address] Monocytes (Bld) [#/Vol] 0.56 10*3/uL Normal 0.10-1.00 [facility] Comment on above: Performed By: #### L [id number] #### [facility] ([facility]) [address] [place] [address] Monocytes/100 WBC (Bld) 6.5 % Normal 5.0-12.0 [facility] Comment on above: Performed By: #### L [id number] #### [facility] ([facility] [place]) [address] [place] [address] Neutrophils (Bld) [#/Vol] 5.74 10*3/uL Normal 1.60-7.60 [facility] Comment on above: Performed By: #### L [id number] #### [facility] ([facility] [place]) [address] [place] [address] Neutrophils/100 WBC (Bld) 67.0 % Normal 40.0-72.0 [facility] Comment on above: Performed By: #### L [id number] #### [facility] ([facility]) [address] [place] [address] NRBC (PER 100 WBCS) BY AUTOMATED COUNT 0.0 % Normal 0 [facility] Comment on above: Performed By: #### L [id number] #### [facility] ([facility]) [address] [place] [address] PLATELETS (10*3/UL) IN BLOOD AUTOMATED COUNT 233 10*3/uL Normal 150-400 [facility] Comment on above: Performed By: #### L [id number] #### [facility] ([facility]) [address] [place] [address] RBC (Bld) [#/Vol] 4.34 10*6/uL Normal 3.80-5.00 [facility] Comment on above: Performed By: #### L [id number] #### [facility] ([facility]) [address] [place] [address] WBC (Bld) [#/Vol] 8.58 10*3/uL Normal 4.00-10.60 [facility] Comment on above: Performed By: #### L [id number] #### [facility] ([facility]) [address] [place] [address] COMPREHENSIVE METABOLIC PANE Alec 06-29-2024 Albumin [Mass/Vol] 3.8 g/dL Normal 3.5-5.7 [facility] Comment on above: Performed By: #### L [id number] ####[facility] ([facility])[address] [place] [address] ALP [Catalytic activity/Vol] 64 U/L Normal 34-104 [facility] Comment on above: Performed By: #### L [id number] ####[facility] ([facility] [place])[address] [place] [address] ALT [Catalytic activity/Vol] 35 U/L Normal 7-52 [facility] Comment on above: Performed By: #### L [id number] ####[facility] ([facility] [place])[address] [place] [address] Anion gap [Moles/Vol] 12 mmol/L Normal 7-20 [facility] Comment on above: Performed By: #### L [id number] ####[facility] ([facility] [place])[address] [place] [address] AST [Catalytic activity/Vol] 21 U/L Normal 13-39 [facility] Comment on above: Performed By: #### L [id number] ####[facility] ([facility])[address] [place] [address] Bilirubin [Mass/Vol] 0.4 mg/dL Normal 0.3-1.0 [facility] Comment on above: Performed By: #### L [id number] ####[facility] ([facility])[address] [place] [address] Calcium [Mass/Vol] 8.5 mg/dL Low 8.6-10.3 [facility] Comment on above: Performed By: #### L [id number] ####[facility] ([facility])[address] [place] [address] Chloride [Moles/Vol] 112 mmol/L High 98-107 [facility] Comment on above: Performed By: #### L [id number] ####[facility] ([facility] [place])[address] [place] [address] CO2 [Moles/Vol] 22 mmol/L Normal 21-31 [facility] Comment on above: Performed By: #### L [id number] ####[facility] ([facility])[address] [place] [address] Creatinine [Mass/Vol] 0.92 mg/dL Normal 0.60-1.20 [facility] Comment on above: Performed By: #### L [id number] ####[facility] ([facility])[address] [place] [address] GLOMERULAR FILTRATION RATE ML/MIN/1.73 SQ M.PREDICTED 71.3 mL/min/1.73m*2 Normal >60.0 [facility] Comment on above: Result Comment: [facility]???s estimated glomerular filtration rate (eGFR) [...] of individuals. Performed By: #### L [id number] ####[facility] ([facility])[address] [place] [address] Glucose [Mass/Vol] 108 mg/dL High 70-100 [facility] Comment on above: Performed By: #### L [id number] ####[facility] ([facility])[address] [place] [address] Potassium [Moles/Vol] 3.7 mmol/L Normal 3.5-5.1 [facility] Comment on above: Performed By: #### L [id number] ####[facility] ([facility])[address] [place] [address] Protein [Mass/Vol] 6.1 g/dL Normal 6.0-8.3 [facility] Comment on above: Performed By: #### L [id number] ####[facility] ([facility] [place] [place] [address] Sodium [Moles/Vol] 142 mmol/L Normal 136-145 [facility] Comment on above: Performed By: #### L [id number] ####[facility] ([facility] [place])[address] [place] [address] Urea nitrogen [Mass/Vol] 11 mg/dL Normal 7-25 [facility] Comment on above: Performed By: #### L [id number] ####[facility] ([facility])[address] [place] [address] UREA NITROGEN/CREATININE (MASS RATIO) IN SER/PLAS 12.0 Normal [facility] Comment on above: Performed By: #### L [id number] ####[facility] ([facility])[address] [place] [address] MAGNESIUMon 06-29-2024 Magnesium [Mass/Vol] 1.7 mg/dL Low 1.9-2.7 [facility] Comment on above: Performed By: #### L [id number] ####[facility] ([facility])[address] [place] [address] PHOSPHORUSon 06-29-2024 Magnesium [Mass/Vol] 2.9 mg/dL Normal 2.5-5.0 [facility] Comment on above: Performed By: #### L [id number] ####[facility] ([facility])[address] [place] [address] PROTIME-INRon 06-29-2024 INR IN PPP BY COAGULATION ASSAY 0.99 Normal 0.90-1.10 [facility] Comment on above: [...] 1995;108:231S-246S. Performed By: #### L [id number] #### [facility] ([facility]) [address] [place] [address] PROTHROMBIN TIME (PT) IN PPP BY COAGULATION ASSAY 13.1 Seconds Normal 12.3-14.8 [facility] Comment on above: Performed By: #### L [id number] #### [facility] ([facility]) [address] [place] [address] TROPONIN Ion 06-29-2024 Troponin I.cardiac [Mass/Vol] 0.10 ng/mL High 0.00-0.04 [facility] Comment on above: Performed By: #### L [id number] ####[facility] ([facility])[address] [place] [address] Office Visiton 06-21-2024 Follow-up visit [id number] Aby Madrigal S 1965 F Date Provider Department Center 06/21/2024 GOMEZ KENDALL RIAZ [place] Family History Problem Relation Age of Onset Lung cancer Mother No Known Problems Father Lung cancer Sister Family Status - Relation Status Age at Mother Father Sister Level of Service:12147 [place] OFFICE/OUTPATIENT ESTABLISHED MOD MDM 30 MIN Normal [facility] Office Visiton 05-26-2024 Follow-up visit [id number] Aby Madrigal S 1965 F Date Provider Department Center 05/26/2024 BIJAN LAWLER RIAZ [place] Family History Problem Relation Age of Onset Lung cancer Mother No Known Problems Father Lung cancer Sister Family Status - Relation Status Age at Mother Father Sister Level of Service:01763 [place] OFFICE/OUTPATIENT NEW MODERATE MDM 45 MINUTES Normal [facility] Outside Colonoscopyon 2022 Outside Colonoscopy [id number] 0CD:127 Normal [facility] Reminderson 11-27-2022 Reminders - From: Na Hayes LPN To: GSN - Clinical; Sent: 11/27/2022 12:46:10 EST Show up: 10/25/2032 07:00:00 EST Subject: colonoscopy recall Due Date/Time: 11/25/2032 07:00:00 EST Reminder/Recall Patient is due for screening colonoscopy 11/25/2032. Normal [facility] Lab Reportson 11-24-2022 Lab Reports [id number] 0CD:127 Normal [facility] Covid-19 PCR (CVDTB)on 10-24 SARS-CoV-2 (COVID-19) RNA BECK+probe Ql (Unsp spec) Not detected Normal NOT DETECTED [facility] Comment on above: Result Comment: This test is not yet approved or cleared by the [place] FDA. When there are no FDA-approved or cleared tests available, and other criteria are met, FDA can make tests available under an emergency access mechanism called an Emergency Use Authorization (EUA). The EUA for this test is supported by the [employer] Operator of Health and Human Service's (HHS's) [...] SARS-CoV-2. Performed By: #### C VDTB #### [facility] [address] [place] [address] Dr. Rich Cutler Consent for Procedure/Surger yon 10-07-2022 Consent for Procedure/Surgery [id number] 0CD:127 Normal [facility] Ambulatory Visit Summaryon 1 12-06-2021 Ambulatory [...] conjunctivitis Anticoagulated Kidney stones Normal [facility] VC VENOUS REFLUX NINO LMTon 1 1-11-2022 VC VENOUS REFLUX NINO LMT Patient: STRAUSBAUGH, ABY S. Exam Date: 10/02/2022 : 1965 Gender:F Ordering : DR KENDRA MORAN . 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 Tech Note: Incompetent SFJ and GSV. Patent varicose vein mid/med calf 2.9mm with 0s reflux. Patent varicose vein prox/post calf 3.8mm with 0s reflux. Patent varicose vein dist/med thigh 3.8mm with 2.0s reflux. CONCLUSION: 1. Mild right and toab-do-cecxqnfi left great saphenous vein venous insufficiency with dilatation 2. Left saphenous popliteal junction reflux 3. Mild left anterior accessory saphenous vein venous insufficiency without dilatation 4. Small bilateral incompetent varicose veins Dictated by: Adelia Lezmaa MD on 10/02/2022 at 13:36 Approved by: Adelia Lezama MD on 10/02/2022 at 13:52 Normal [facility] ECHOCARDIO M/2D COMPLETEon 1 11-30-2021 ECHOCARDIO M/2D COMPLETE Patient: ABY MADRIGAL Exam Date: 09/30/2022 : 1965 Gender:F Ordering : DR KENDRA MORAN . Admission #: [id number] Family : Order #: [id number] CLICK HERE TO VIEW EXAM ECHOCARDIOGRAM REPORT [...] M.D. on 09/30/2022 at 18:37 Normal [facility] BNPon 09-24-2022 Natriuretic peptide B (Bld) [Mass/Vol] 501.0 pg/mL Normal <=900.0 [facility] Comment on above: Performed By: #### C VDTBH #### [facility] [address] [place] [address] Dr. Rich Cutler CBC AUTO DIFFon 09-24-2022 BASO # 0.1 103/ul Normal 0.0-0.1 [facility] Comment on above: Performed By: #### C VDTBH #### [facility] [address] [place] [address] Dr. Rich Cutler Basophils/100 WBC (Bld) 0.8 % Normal 0.2-2.0 [facility] Comment on above: Performed By: #### C VDTBH #### [facility] [address] [place] [address] Dr. Rich Cutler EO # 0.3 103/ul Normal 0.0-0.7 [facility] Comment on above: Performed By: #### C VDTBH #### [facility] [address] [place] [address] Dr. Rich Cutler Eosinophils/100 WBC (Bld) 3.4 % Normal 0.9-7.0 [facility] Comment on above: Performed By: #### C VDTBH #### [facility] [address] [place] [address] Dr. Rich Cutler Erythrocyte distribution width (RBC) [Ratio] 13.3 % Normal 11.0-15.0 [facility] Comment on above: Performed By: #### C VDTBH #### [facility] [address] [place] [address] Dr. Rich Cutler Hematocrit (Bld) [Volume fraction] 40.5 % Normal 36.0-48.0 [facility] Comment on above: Performed By: #### C VDTBH #### [facility] [address] [place] [address] Dr. Rich Cutler Hemoglobin (Bld) [Mass/Vol] 13.1 g/dL Normal 12.0-16.0 [facility] Comment on above: Performed By: #### C VDTBH #### [facility] [address] [place] [address] Dr. Rich Cutler IG # 0.02 10e3/ul Normal 0.00-0.03 [facility] Comment on above: Performed By: #### C VDTBH #### [facility] [address] [place] [address] Dr. Rich Cutler IG % 0.3 % Normal 0.0-0.5 [facility] Comment on above: Performed By: #### C VDTBH #### [facility] [address] [place] [address] Dr. Rich Cutler LYMPH # 2.7 103/ul Normal 1.2-3.8 [facility] Comment on above: Performed By: #### C VDTBH #### [facility] [address] [place] [address] Dr. Rich Cutler Lymphocytes/100 WBC (Bld) 35.4 % Normal 20.5-60.0 [facility] Comment on above: Performed By: #### C VDTBH #### [facility] [address] [place] [address] Dr. Rich Cutler MANUAL DIFF REQ NO Normal [facility] Comment on above: Performed By: #### C VDTBH #### [facility] [address] [place] [address] Dr. Rich Cutler MCH (RBC) [Entitic mass] 28.2 pg Normal 26.7-34.0 [facility] Comment on above: Performed By: #### C VDTBH #### [facility] [address] [place] [address] Dr. Rich Cutler MCHC (RBC) [Mass/Vol] 32.3 g/dL Normal 29.9-35.2 [facility] Comment on above: Performed By: #### C VDTBH #### [facility] [address] [place] [address] Dr. Rich Cutler MCV (RBC) [Entitic vol] 87.3 fL Normal 81.0-99.0 [facility] Comment on above: Performed By: #### C VDTBH #### [facility] [address] [place] [address] Dr. Rich Cutler MONO # 0.5 103/ul Normal 0.3-0.8 [facility] Comment on above: Performed By: #### C VDTBH #### [facility] [address] [place] [address] Dr. Rich Cutler Monocytes/100 WBC (Bld) 6.5 % Normal 1.7-12.0 [facility] Comment on above: Performed By: #### C VDTBH #### [facility] [address] [place] [address] Dr. Rich Cutler NEUT # 4.1 103/ul Normal 1.4-6.5 [facility] Comment on above: Performed By: #### C VDTBH #### [facility] [address] [place] [address] Dr. Rich Cutler Neutrophils/100 WBC (Bld) 53.6 % Normal 43.0-75.0 [facility] Comment on above: Performed By: #### C VDTBH #### [facility] [address] [place] [address] Dr. Rich Cutler Platelet mean volume (Bld) [Entitic vol] 10.3 fL Normal 9.5-13.5 [facility] Comment on above: Performed By: #### C VDTBH #### [facility] [address] [place] [address] Dr. Rich Cutler PLT 283 103/ul Normal 150-450 [facility] Comment on above: Performed By: #### C VDTBH #### [facility] [address] [place] [address] Dr. Rich Cutler RBC 4.64 106/ul Normal 4.20-5.40 [facility] Comment on above: Performed By: #### C VDTBH #### [facility] [address] [place] [address] Dr. Rich Cutler WBC 7.6 103/ul Normal 4.0-11.0 [facility] Comment on above: Performed By: #### C VDTBH #### [facility] [address] [place] [address] Dr. Rich Cutler INSULINon 09-24-2022 Insulin 15.1 uIU/mL Normal 2.6-24.9 [facility] Comment on above: Performed By: #### C VDTBH #### [facility] [address] [place] [address] Dr. Rich Cutler PROF 14(COMP METB)on 022 Albumin [Mass/Vol] 3.5 g/dL Normal 3.4-5.0 [facility] Comment on above: Performed By: #### C VDTBH #### [facility] [address] [place] [address] Dr. Rich Cutler Albumin/Globulin [Mass ratio] 1.0 {ratio} Normal [facility] Comment on above: Performed By: #### C VDTBH #### [facility] [address] [place] [address] Dr. Rich Cutler ALP [Catalytic activity/Vol] 91 U/L Normal 46-116 [facility] Comment on above: Performed By: #### C VDTBH #### [facility] [address] [place] [address] Dr. Rich Cutler ALT [Catalytic activity/Vol] 47 U/L Normal 14-59 [facility] Comment on above: Performed By: #### C VDTBH #### [facility] [address] [place] [address] Dr. Rich Cutler Anion gap [Moles/Vol] 11.7 mmol/L Normal [facility] Comment on above: Performed By: #### C VDTBH #### [facility] [address] [place] [address] Dr. Rich Cutler AST [Catalytic activity/Vol] 24 U/L Normal 15-37 [facility] Comment on above: Performed By: #### C VDTBH #### [facility] [address] [place] [address] Dr. Rich Cutler Bilirubin [Mass/Vol] 0.2 mg/dL Normal 0.2-1.0 [facility] Comment on above: Performed By: #### C VDTBH #### [facility] [address] [place] [address] Dr. Rich Cutler Calcium [Mass/Vol] 8.9 mg/dL Normal 8.5-10.1 [facility] Comment on above: Performed By: #### C VDTBH #### [facility] [address] [place] [address] Dr. Rich Cutler Chloride [Moles/Vol] 105 mmol/L Normal 98-107 [facility] Comment on above: Performed By: #### C VDTBH #### [facility] [address] [place] [address] Dr. Rich Cutler CO2 [Moles/Vol] 28.1 mmol/L Normal 21.0-32.0 [facility] Comment on above: Performed By: #### C VDTBH #### [facility] [address] [place] [address] Dr. Rich Cutler Creatinine [Mass/Vol] 1.13 mg/dL Critically high 0.55-1.02 [facility] Comment on above: Performed By: #### C VDTBH #### [facility] [address] [place] [address] Dr. Rich Cutler EGFR-AF LATVIAN 60 mL/min/1.73m2 Normal >=60 [facility] Comment on above: Performed By: #### C VDTBH #### [facility] [address] [place] [address] Dr. Rich Cutler EGFR-NON AF LATVIAN 49 mL/min/1.73m2 Critically low >=60 [facility] Comment on above: Performed By: #### C VDTBH #### [facility] [address] [address] [address] Rich Cutler Globulin (S) [Mass/Vol] 3.5 g/dL Normal [facility] Comment on above: Performed By: #### C VDTBH #### [facility] [address] [address] [address] Rich Cutler Glucose [Mass/Vol] 119 mg/dL Critically high 74-[address] [facility] Comment on above: Performed By: #### C VDTBH #### [facility] [address] [address] [address] Rich Cutler Potassium [Moles/Vol] 3.8 mmol/L Normal 3.5-5.1 [facility] Comment on above: Performed By: #### C VDTBH #### [facility] [address] [place] [address] Dr. Rich Cutler Protein [Mass/Vol] 7.0 g/dL Normal 6.4-8.2 [facility] Comment on above: Performed By: #### C VDTBH #### [facility] [address] [place] [address] Dr. Rich Cutler Sodium [Moles/Vol] 141 mmol/L Normal 136-145 [facility] Comment on above: Performed By: #### C VDTBH #### [facility] [address] [place] [address] Dr. Rich Cutler Urea nitrogen [Mass/Vol] 16.0 mg/dL Normal 7.0-18.0 [facility] Comment on above: Performed By: #### C VDTBH #### [facility] [address] [place] [address] Dr. Rich Cutler Urea nitrogen/Creatinine [Mass ratio] 14.2 mg/mg Normal [facility] Comment on above: Performed By: #### C VDTBH #### [facility] [address] [place] [address] Dr. Rich Cutler TROPONIN, HIGH SENSITIVITYon 09-24-2022 HSTROP 10.6 pg/mL Normal 4.0-51.3 [facility] Comment on above: Result Comment: CUT- OFF POINTS HAVE BEEN ESTABLISHED BASED ON THE FOURTH UNIVERSAL DEFINITIONS OF MYOCARDIAL INFARCTION. THE UPPER REFERENCE LIMIT (URL) OF TROPONIN, DEFINED THE 99TH PERCENTILE OF cTnI DISTRIBUTION IN A REFERENCE POPULATION, HAS BEEN CONFIRMED THE DECISION THRESHOLD FOR IA DIAGNOSIS. Performed By: #### C VDTB #### [facility] [address] [place] [address] Dr. Rich Cutler XR CHEST 1 Von [...] [facility] Date: 2022-09-24 04:08 Normal [facility] CBC AUTO DIFFon 09-23-2022 BASO # 0.1 103/ul Normal 0.0-0.1 [facility] Comment on above: Performed By: #### C BC #### [facility] [address] [place] [address] Dr. Rich Cutler Basophils/100 WBC (Bld) 0.8 % Normal 0.2-2.0 [facility] Comment on above: Performed By: #### C BC #### [facility] [address] [place] [address] Dr. Rich Cutler EO # 0.2 103/ul Normal 0.0-0.7 [facility] Comment on above: Performed By: #### C BC #### [facility] [address] [place] [address] Dr. Rich Cutler Eosinophils/100 WBC (Bld) 3.5 % Normal 0.9-7.0 [facility] Comment on above: Performed By: #### C BC #### [facility] [address] [place] [address] Dr. Rich Cutler Erythrocyte distribution width (RBC) [Ratio] 13.4 % Normal 11.0-15.0 [facility] Comment on above: Performed By: #### C BC #### [facility] [address] [place] [address] Dr. Rich Cutler Hematocrit (Bld) [Volume fraction] 42.3 % Normal 36.0-48.0 [facility] Comment on above: Performed By: #### C BC #### [facility] [address] [place] [address] Dr. Rich Cutler Hemoglobin (Bld) [Mass/Vol] 13.4 g/dL Normal 12.0-16.0 [facility] Comment on above: Performed By: #### C BC #### [facility] [address] [place] [address] Dr. Rich Cutler IG # 0.03 10e3/ul Normal 0.00-0.03 [facility] Comment on above: Performed By: #### C BC #### [facility] [address] [place] [address] Dr. Rich Cutler IG % 0.5 % Normal 0.0-0.5 [facility] Comment on above: Performed By: #### C BC #### [facility] [address] [place] [address] Dr. Rich Cutler LYMPH # 2.9 103/ul Normal 1.2-3.8 [facility] Comment on above: Performed By: #### C BC #### [facility] [address] [place] [address] Dr. Rich Cutler Lymphocytes/100 WBC (Bld) 44.0 % Normal 20.5-60.0 [facility] Comment on above: Performed By: #### C BC #### [facility] [address] [place] [address] Dr. Rich Cutler MANUAL DIFF REQ NO Normal [facility] Comment on above: Performed By: #### C BC #### [facility] [address] [place] [address] Dr. Rich Cutler MCH (RBC) [Entitic mass] 28.4 pg Normal 26.7-34.0 [facility] Comment on above: Performed By: #### C BC #### [facility] [address] [address] [address] Rich Cutler MCHC (RBC) [Mass/Vol] 31.7 g/dL Normal 29.9-35.2 [facility] Comment on above: Performed By: #### C BC #### [facility] [address] [place] [address] Dr. Rich Cutler MCV (RBC) [Entitic vol] 89.6 fL Normal 81.0-99.0 [facility] Comment on above: Performed By: #### C BC #### [facility] [address] [place] [address] Dr. Rich Cutler MONO # 0.4 103/ul Normal 0.3-0.8 [facility] Comment on above: Performed By: #### C BC #### [facility] [address] [place] [address] Dr. Rich Cutler Monocytes/100 WBC (Bld) 6.6 % Normal 1.7-12.0 [facility] Comment on above: Performed By: #### C BC #### [facility] [address] [place] [address] Dr. Rich Cutler NEUT # 2.9 103/ul Normal 1.4-6.5 [facility] Comment on above: Performed By: #### C BC #### [facility] [address] [place] [address] Dr. Rich Cutler Neutrophils/100 WBC (Bld) 44.6 % Normal 43.0-75.0 [facility] Comment on above: Performed By: #### C BC #### [facility] [address] [place] [address] Dr. Rich Cutler Platelet mean volume (Bld) [Entitic vol] 11.0 fL Normal 9.5-13.5 [facility] Comment on above: Performed By: #### C BC #### [facility] [address] [place] [address] Dr. Rich Cutler PLT 272 103/ul Normal 150-450 [facility] Comment on above: Performed By: #### C BC #### [facility] [address] [place] [address] Dr. Rich Cutler RBC 4.72 106/ul Normal 4.20-5.40 [facility] Comment on above: Performed By: #### C BC #### [facility] [address] [place] [address] Dr. Rich Cutler WBC 6.5 103/ul Normal 4.0-11.0 [facility] Comment on above: Performed By: #### C BC #### [facility] [address] [place] [address] Dr. Rich Cutler FREE THYROXINE INDEX T7on FTI 2.16 Normal 1.30-4.50 [facility] Comment on above: Performed By: #### L IPID, TSH, T7, CMP #### [facility] [address] [place] [address] Dr. Rich Cutler T3U 30.0 % Normal 30.0-39.0 [facility] Comment on above: Performed By: #### L IPID, TSH, T7, CMP #### [facility] [address] [place] [address] Dr. Rich Cutler T4 [Mass/Vol] 7.20 ug/dL Normal 4.80-13.90 [facility] Comment on above: Performed By: #### L IPID, TSH, T7, CMP #### [facility] [address] [place] [address] Dr. Rich Cutler GLYCOHEMOGLOBIN A1Con 2021 ADA RECOMMENDATION SEE BELOW Normal [facility] Comment on above: Result Comment: ADA RECOMMENDED LIMIT 4.0 - 6.0 ADA THERAPEUTIC TARGET < 7.0 ACTION SUGGESTED > 7.0 Performed By: #### A 1C #### [facility] [address] [place] [address] Dr. Rich Cutler Glucose [Mass/Vol] 128 mg/dL Normal [facility] Comment on above: Performed By: #### A 1C #### [facility] [address] [place] [address] Dr. Rich Cutler HbA1c (Bld) [Mass fraction] 6.1 % Normal 4.5-6.2 [facility] Comment on above: Performed By: #### A 1C #### [facility] [address] [place] [address] Dr. Rich Cutler IRONon 09-23-2022 Iron [Mass/Vol] 64.0 ug/dL Normal 50.0-170.0 [facility] Comment on above: Performed By: #### C VDTBH #### [facility] [address] [place] [address] Dr. Rich Cutler LIPID PROFILEon 09-23-2022 CHOL-HDL RATIO NORM SEE BELOW Normal [facility] Comment on above: Result Comment: 3.3 - 4.4 LOW RISK 4.4 - 7.1 AVERAGE RISK 7.1 - 11.0 MODERATE RISK >11.0 HIGH RISK Performed By: #### L IPID, TSH, T7, CMP #### [facility] [address] [place] [address] Dr. Rich Cutler Cholesterol [Mass/Vol] 237 mg/dL Critically high <=200 [facility] Comment on above: Performed By: #### L IPID, TSH, T7, CMP #### [facility] [address] [place] [address] Dr. Rich Cutler Cholesterol in HDL [Mass/Vol] 44 mg/dL Normal 40-60 [facility] Comment on above: Performed By: #### L IPID, TSH, T7, CMP #### [facility] [address] [place] [address] Dr. Rich Cutler Cholesterol in LDL [Mass/Vol] 172.2 mg/dL Normal [facility] Comment on above: Performed By: #### L IPID, TSH, T7, CMP #### [facility] [address] [place] [address] Dr. Rich Cutler Cholesterol.total/C holesterol in HDL [Mass ratio] 5.4 {ratio} Normal [facility] Comment on above: Performed By: #### L IPID, TSH, T7, CMP #### [facility] [address] [place] [address] Dr. Rich Cutler HDL NORMAL > or = 60 mg/dl - LO W CARDIOVASCULAR RISK <40 mg/dl - HIGH CARDIOVASCULAR RISK Normal [facility] Comment on above: Performed By: #### L IPID, TSH, T7, CMP #### [facility] [address] [address] [address] Rich Cutler LDL CALC NORMAL SEE BELOW Normal [facility] Comment on above: Result Comment: <100 mg/dl OPTIMAL 100 - 129 mg/dl NEAR OR ABOVE OPTIMAL 130 - 159 mg/dl BORDERLINE HIGH 160 - 189 mg/dl HIGH >190 mg/dl VERY HIGH Performed By: #### L IPID, TSH, T7, CMP #### [facility] [address] [address] [address] Rich Cutler Triglyceride [Mass/Vol] 104 mg/dL Normal <=150 [facility] Comment on above: Performed By: #### L IPID, TSH, T7, CMP #### [facility] [address] [address] [address] Rich Cutler VLDL CALC 20.8 mg/dL Normal [facility] Comment on above: Performed By: #### L IPID, TSH, T7, CMP #### [facility] [address] [address] [address] Rich Cutler PROF 14(COMP METB)on 022 Albumin [Mass/Vol] 3.5 g/dL Normal 3.4-5.0 [facility] Comment on above: Performed By: #### L IPID, TSH, T7, CMP #### [facility] [address] [address] [address] Rich Cutler Albumin/Globulin [Mass ratio] 0.9 {ratio} Normal [facility] Comment on above: Performed By: #### L IPID, TSH, T7, CMP #### [facility] [address] [address] [address] Rich Cutler ALP [Catalytic activity/Vol] 93 U/L Normal 46-116 [facility] Comment on above: Performed By: #### L IPID, TSH, T7, CMP #### [facility] [address] [place], [place] [id number] Dr. Rich Cutler ALT [Catalytic activity/Vol] 44 U/L Normal 14-59 [facility] Comment on above: Performed By: #### L IPID, TSH, T7, CMP #### [facility] [address] [place] [address] Dr. Rich Cutler Anion gap [Moles/Vol] 8.5 mmol/L Normal [facility] Comment on above: Performed By: #### L IPID, TSH, T7, CMP #### [facility] [address] [place] [address] Dr. Rich Cutler AST [Catalytic activity/Vol] 26 U/L Normal 15-37 [facility] Comment on above: Performed By: #### L IPID, TSH, T7, CMP #### [facility] [address] [place] [address] Dr. Rich Cutler Bilirubin [Mass/Vol] 0.3 mg/dL Normal 0.2-1.0 [facility] Comment on above: Performed By: #### L IPID, TSH, T7, CMP #### [facility] [address] [place] [address] Dr. Rich Cutler Calcium [Mass/Vol] 9.0 mg/dL Normal 8.5-10.1 [facility] Comment on above: Performed By: #### L IPID, TSH, T7, CMP #### [facility] [address] [place] [address] Dr. Rich Cutler Chloride [Moles/Vol] 106 mmol/L Normal 98-107 [facility] Comment on above: Performed By: #### L IPID, TSH, T7, CMP #### [facility] [address] [place] [address] Dr. Rich Cutler CO2 [Moles/Vol] 31.0 mmol/L Normal 21.0-32.0 [facility] Comment on above: Performed By: #### L IPID, TSH, T7, CMP #### [facility] [address] [place] [address] Dr. Rich Cutler Creatinine [Mass/Vol] 1.11 mg/dL Critically high 0.55-1.02 [facility] Comment on above: Performed By: #### L IPID, TSH, T7, CMP #### [facility] [address] [place] [address] Dr. Rich Cutler EGFR-AF LATVIAN >60 Normal >=60 [facility] Comment on above: Performed By: #### L IPID, TSH, T7, CMP #### [facility] [address] [place] [address] Dr. Rich Cutler EGFR-NON AF LATVIAN 50 mL/min/1.73m2 Critically low >=60 [facility] Comment on above: Performed By: #### L IPID, TSH, T7, CMP #### [facility] [address] [place] [address] Dr. Rich Ctuler Globulin (S) [Mass/Vol] 3.7 g/dL Normal [facility] Comment on above: Performed By: #### L IPID, TSH, T7, CMP #### [facility] [address] [place] [address] Dr. Rich Cutler Glucose [Mass/Vol] 121 mg/dL Critically high 74-[address] [facility] Comment on above: Performed By: #### L IPID, TSH, T7, CMP #### [facility] [address] [place] [address] Dr. Rich Cutler Potassium [Moles/Vol] 4.5 mmol/L Normal 3.5-5.1 [facility] Comment on above: Performed By: #### L IPID, TSH, T7, CMP #### [facility] [address] [place] [address] Dr. Rich Cutler Protein [Mass/Vol] 7.2 g/dL Normal 6.4-8.2 [facility] Comment on above: Performed By: #### L IPID, TSH, T7, CMP #### [facility] [address] [place] [address] Dr. Rich Cutler Sodium [Moles/Vol] 141 mmol/L Normal 136-145 [facility] Comment on above: Performed By: #### L IPID, TSH, T7, CMP #### [facility] [address] [address] [address] Rich Cutler Urea nitrogen [Mass/Vol] 16.0 mg/dL Normal 7.0-18.0 [facility] Comment on above: Performed By: #### L IPID, TSH, T7, CMP #### [facility] [address] [address] [address] Rich Cutler Urea nitrogen/Creatinine [Mass ratio] 14.4 mg/mg Normal [facility] Comment on above: Performed By: #### L IPID, TSH, T7, CMP #### [facility] [address] [address] [address] Rich Cutler TSHon 09-23-2022 TSH 3.915 uIU/mL Critically high 0.358-3.740 [facility] Comment on above: Performed By: #### L IPID, TSH, T7, CMP #### [facility] [address] [address] [address] Rich Cutler Physician Referralon 022 Physician Referral [id number] Normal [facility] Lipid Panelon 10-07-2021 Cholesterol [Mass/Vol] 205 mg/dL High 140-200 [facility] Comment on above: Result Comment: Chol less than 200 mg/dl low risk Chol 201-239 mg/dl borderline risk Chol 240 mg/dl and greater high risk Performed By: #### L IPID, [id number], TSH3 wRFLX #### [facility] [address] [id number] [place] Cholesterol in HDL [Mass/Vol] 25 mg/dL Low 35-85 [facility] Comment on above: Result Comment: HDL CHOL ATP-III CLASSIFICATION Cardiovascular Risk HDL > or equal to 60 mg/dL LOW HDL < 40 mg/dL HIGH Performed By: #### L IPID, [id number], TSH3 wRFLX #### [facility] [address] [place] [address] [place] Cholesterol.total/C holesterol in HDL [Mass ratio] 8.2 {ratio} Normal <5.0 [facility] Comment on above: Performed By: #### L IPID, [id number], TSH3 wRFLX #### [facility] [address] LDL Cholesterol,Calcula coby 160 mg/dL High 0-100 [facility] Comment on above: Result Comment: LDL ATP III CLASSIFICATION LDL less than 100 mg/dL Optimal LDL 100-129 mg/dL Near or above optimal LDL 130-159 mg/dL Borderline high LDL 160-189 mg/dL High LDL greater than 189 mg/dL Very high Performed By: #### L IPID, [id number], TSH3 wRFLX #### [facility] [address] [place] [address] Triglyceride w/Reflex 100 mg/dL Normal 35-149 [facility] Comment on above: Result Comment: TRIG ATP III CLASSIFICATION TRIG less than 150 mg/dL Normal TRIG 150-199 mg/dL Borderline high TRIG 200-500 mg/dL High TRIG greater than 500 mg/dL Very high Standard traceable to the Center for Disease Conrtrol and Prevention (CDC) test method. Performed By: #### L IPID, [id number], TSH3 wRFLX #### [facility] [address] [place] [address] VLDL CHOLESTEROL 20 mg/dL Normal [facility] Comment on above: Performed By: #### L IPID, [id number], TSH3 wRFLX #### [facility] [address] [place] [address] Thyroid Stim Hormone w/Rflxo n 10-07-2021 Thyroid Stim Hormone w/Rflx 3.27 u[iU]/mL Normal 0.45-5.33 [facility] Comment on above: Performed By: #### L IPID, [id number], TSH3 wRFLX #### [address] Vitamin D 25 Hydroxy Totalon 10-07-2021 Vitamin D 25 Hydroxy Total 26.5 ng/mL Low 30-100 [facility] Comment on above: Result Comment: JACKELINE MIN D STATUS 25(OH)VITAMIN D RANGE (ng/mL) Deficient <20 Insufficient 20 to <30 Sufficient 30 to 100 Reference: Lanny MF,Gino NC, Dyan VALENZUELA, et al. Evaluation,treatment, and prevention of vitamin D deficiency; an Endocrine Society clinical practice guideline. JCEM. 2010; 96(6):1911-30. PERFORMED BY: [facility] [address] [place] [address] PATHOLOGIST DIE HARDENER SILVESTRE SCHULER M.D. Performed By: #### L IPID, [id number], TSH3 wRFLX #### [address] Vital Signs Date Time Vital Sign Value Performing Clinician Deidre gagnon 03-03-2025 11:02-0400 Body height 160.02 cm [facility] 03-03-2025 11:02-0400 Body mass index (BMI) [Ratio] 35.6 kg/m2 [facility] 03-03-2025 11:02-0400 Body temperature 97.8 [degF] [facility] 03-03-2025 11:02-0400 Body weight 91.34 kg [facility] 03-03-2025 11:02-0400 Diastolic blood pressure 69 mm[Hg] [facility] 03-03-2025 11:02-0400 Heart rate 82 /min [facility] 03-03-2025 11:02-0400 Respiratory rate 18 /min [facility] 03-03-2025 11:02-0400 SaO2% (BldA) [Mass fraction] 96 % [facility] 03-03-2025 11:02-0400 Systolic blood pressure 108 mm[Hg] [facility] 03-02-2025 09:18-0400 Body height 162.6 cm Farzana OCONNOR Work Phone: [facility] 03-02-2025 09:18-0400 Body mass index (BMI) [Ratio] 34.81 kg/m2 Farzana Ely APRN-TOR Work Phone: [facility] [facility] 03-02-2025 09:18-0400 Body weight 91.99 kg Farzana Ely RAD TECH-[employer]SEMBLER Work Phone: [facility] 03-02-2025 09:18-0400 Diastolic blood pressure 68 mm[Hg] Farzana Ely RAD TECH[employer]SEMBLER Work Phone: [facility] 03-02-2025 09:18-0400 Systolic blood pressure 118 mm[Hg] Farzana Ely RAD TECH-[employer] DOOR ASSEMBLER Work Phone: [facility] 10-06-2022 15:36-0500 Blood Pressure Location [facility] 10-06-2022 15:36-0500 Diastolic blood pressure 86 mm[Hg] [facility] 10-06-2022 15:36-0500 Heart rate 72 /min [facility] 10-06-2022 15:36-0500 Respiratory rate 16 /min [facility] 10-06-2022 15:36-0500 Systolic blood pressure 126 mm[Hg] [facility] Encounters Encounter Date Encounter Type Care Provider Facility Start: 03-03-2025 End: 03-03-2025 ambulatory [facility] Work Phone: Start: 03-03-2025 End: 03-03-2025 Patient encounter procedure [facility] Work Phone: Start: 03-02-2025 End: 03-02-2025 ambulatory FARZANA M [facility] Start: 03-02-2025 End: 03-02-2025 Office outpatient visit 15 minutes Farzana Ely RAD TECH-FIREPROOF DOOR ASSEMBLER Work Phone: [facility] Comment on above: Genitourinary syndro me of menopause (Primary Dx); PCB (post coital bleeding) Start: 02-26-2025 End: 02-26-2025 ambulatory [facility] Start: 02-07-2025 End: 02-07-2025 ambulatory [facility] Start: 01-09-2025 End: 01-09-2025 ambulatory [facility] Start: 01-02-2025 End: 01-02-2025 ambulatory NONA [facility] Start: 10-26-2024 End: 10-26-2024 ambulatory [facility] Start: 10-03-2024 End: 10-03-2024 ambulatory [facility] Start: 09-04-2024 End: 09-04-2024 ambulatory [facility] Start: 08-29-2024 End: 08-29-2024 ambulatory [facility] Start: 08-04-2024 End: 08-04-2024 ambulatory [facility] Start: 07-20-2024 ambulatory [facility] Start: 07-20-2024 ambulatory [facility] Ambulatory [facility] Start: 07-18-2024 ambulatory [facility] Start: 07-18-2024 End: 07-18-2024 Emergency department patient visit HERMINIA JULIAN [facility] Start: 07-18-2024 End: 07-18-2024 ambulatory MESERET MAC [facility] Start: 07-11-2024 Evaluation and manag ement of inpatient NONA [facility] Start: 07-11-2024 [facility] Start: 07-11-2024 End: 07-12-2024 Evaluation and management of inpatient TAO NASSAR [facility] Start: 07-10-2024 End: 07-10-2024 [facility] Start: 06-30-2024 Evaluation and manag ement of inpatient [facility] Start: 06-30-2024 Evaluation and manag ement of inpatient [facility] Start: 06-29-2024 End: 07-01-2024 Evaluation and management of inpatient KENDRA MORAN [facility] Start: 06-21-2024 End: 06-21-2024 ambulatory GOMEZ CHANGMONA [facility] Start: 05-26-2024 End: 05-26-2024 ambulatory [facility] Start: 11-26-2022 Encounter for preprocedural laboratory examination DR UMM LANDON . [facility] Start: 11-25-2022 End: 11-26-2022 ambulatory Umm LANDON Facility:CD:[id number] Start: 11-20-2022 End: 11-21-[address] UMM LANDON . Facility:[facility] Start: 11-20-2022 End: 11-21-2022 Encounter for preprocedural laboratory examination DR UMM LANDON . Facility:[facility] Start: 10-06-2022 End: 10-07-2022 ambulatory mUm LANDON Facility:[facility] Start: 10-06-2022 End: 10-06-2022 Patient encounter procedure Umm LANDON [facility] Start: 10-02-2022 End: 10-03-[address] KENDRA MORAN . Facility:[facility] Start: 09-30-2022 End: 10-01-[address] KENDRA MORAN . Facility:[facility] Start: 09-28-2022 Encounter for genera l adult medical examination without abnormal findings DR KENDRA MORAN . [facility] Start: 09-24-2022 End: 09-24-2022 ambulatory [...] 03-02-2026 Adult BMI Screening Adult BMI Screening [facility] Start: 03-02-2026 Tobacco Screening Tobacco Screening [facility] Start: 07-23-2025 Influenza vaccination Influenza Vaccine [facility] Start: 06-01-2025 End: 06-01-2025 Patient encounter procedure 06/01/2025 1:00 PM EDT Office Visit [facility] [address] [place] [id number] Afsaneh Jacome, RAD TECH-FIREPROOF DOOR ASSEMBLER [address] [facility] [place], [place] [id number] [facility] Start: 07-23-2024 COVID-19 Vaccine ( season) COVID-19 Vaccine ( season) [facility] Start: 2014 Administration of varicella zoster vaccine Zoster (Shingles) Vaccine (1 of 2) [facility] Start: 1983 DTaP,Tdap and Td Vaccines (1 - Tdap) DTaP,Tdap and Td Vaccines (1 - Tdap) [facility] Start: 1982 Adult BMI Follow Up Plan Adult BMI Follow Up Plan [facility] Start: 1976 Depression Screening Depression Screening [facility] Immunizations Immunization Date Immunization Notes Care Provider Fa ciliandrzej 11-07-2021 influenza virus vaccine, unspecified formulation Farzana Ely RAD TECH-FIREPROOF DOOR ASSEMBLER Work Phone: [facility] 04-14-2021 SARS-CoV-2 (COVID-19 ) mRNA BNT-162b2 vax Umm NILL [facility] 03-11-2021 SARS-CoV-2 (COVID-19 ) mRNA BNT-162b2 vax Umm NILL [facility] [place] NEGATED: Highlighted row has not occurred!10-07-2021 influenza, injectable, quadrivalent, preservative free [facility] Payers Date Payer Category Payer Medicaid [id number] 2022 Medicaid [id number] 2019 Private Health Insurance [id number] 2016 Unknown [id number] 1965 Unknown [id number] 2.16.8 [id number] 1964 Unknown [id number] 2.16.8 [id number] 1964 Unknown [id number] 2.16.84 [id number] 1964 Unknown [id number] 2.16.84 [id number] 1964 Unknown [id number] 2.16.84 [id number] 1964 Unknown [id number] 2.16.84 [id number] 1964 Unknown [id number] 2.16.84 [id number] 1964 Unknown [id number] 2.16.84 0.1.262834.3.579.2.593 1964 Unknown [id number] 2.16.84 [id number] 1964 Unknown [id number] 2.16. [id number] 1964 Unknown [id number] 2.16. [id number] 1964 Unknown [id number] 2.16.8 [id number] 1964 Unknown [id number] 2.16.8 [id number] 1959 Self-pay [id number] 1959 Unknown [id number] Social History Date Type Detail Facility Start: 10-06-2022 End: 03-02-2025 Tobacco smoking status Ex-smoker (finding) [facility] [place] Tobacco smoking status Never [facility] Start: 01-02-2021 End: 03-02-2025 Sex Assigned At Female Fry Ivan Castrejonus [facility] Start: 10-07-2021 History of tobacco use Current smoke r [facility] History of tobacco use Cigarette Smoker P [facility] Start: 01-02-2021 End: 03-02-2025 Cigarettes smoked current (pack per day) - Reported 1 [facility] Start: 03-02-2025 Tobacco use and exposure Smokeless tobacco non-user [facility] Start: 03-02-2025 Alcoholic beverage intake Ex-drinker (finding) [facility] Start: 1965 Sex assigned at Not on file P [facility] Start: 06-27-2015 End: 03-03-2025 Sex Female (finding) [facility] Start: 1965 Sex Assigned At Female F [facility] Functional Status Date Assessment Result Facility 10-06-2022 Functional Status N/A General Lopez [facility] [place] Clinical Notes 10-11-2022 to 03-02-2025 Farzana Muro PastorGanelly, RAD TECH-FIREPROOF DOOR ASSEMBLER - 03/02/2025 8:45 AM EDTPatient Instructions Note [...] Anxiety GERD (gastroesophageal reflux disease) Heart attack ([facility]) 06/29/2024 Hypertension MEDS Current Outpatient Medications Medication [...] Ramos 03/02/25 1132 documented in this encounter [employer] 03-02-2025 Instructions ELIVN Ramos - 03/02/2025 8:45 AM EDT Genitourinary [...] clitoris, and labia. documented in this encounter [facility] 02-[facility]-[address] Cardiology - [facility] Subjective Aby Madrigal is a [...] infarction) (CMS/HCC) Hypokalemia Coronary artery disease involving kasaan coronary artery of kasaan heart without angina pectoris Depression, major, severe [...] and V6. She was then admitted to [facility] on 07/11/2024 with NSTEMI. [...] on 01/31/2025 she was evaluated at the [facility] because of chest pain. Workup [...] Normal heart so (more content not included)... [facility] 02-07-2025 Note IR VENOGRAPHY VENOUS SAMPLE Procedure: [...] was achieved using a micropuncture set. A [employer] wire was advanced into the IVC and a 5 Yoruba vascular sheath was placed. Selective catheterization of [...] Gage Núñez MD on 02/07/2025 10:05 PM [facility] 01-18-2025 Note Patient contacted of agueda, states she called [facility] to schedule the referral Dr. Christie had sent over, however no referral was received. [employer] Production Manager faxed referral and recent visit note to [phone]. [facility] 01-09-2025 Note REASON FOR VISIT + H [...] metoprolol - Jun 2019 CT A/P in [place], [place] performed for abd pain, incidentally detected [...] History: Diagnosis Date Abnormal ECG Diabetes mellitus ([facility]) Hyperlipidemia Hypertension Obstructive sleep apnea Panic attacks Stroke ([facility]) Past Surgical History: Procedure Laterality Date [...] (Imdur) 60 mg (more content not included)... [facility] 12-25-2024 Note [employer] Production Manager spoke with Remington greene at [facility] regarding this patient. Tram said the way the order was placed through the system they just didn't see it, Tram assured resume writer that patient was being scheduled at the secondary infusion location. Any questions or concerns call Tram at [phone]. JLR [facility] 10-26-2024 Note Attestation signed by Richa Viramontes MD at 10/27/2024 12:07 PM I have seen and examined the patient. I reviewed the resident/fellow note and I agree with the findings and plan. Richa Viramontes MD Interventional Pulmonary Medicine Pulmonary and Critical Care Medicine [facility] Visit Note Patient: Aby Madrigal Age: 59 y.o. : 1965 Account No.: [id number] Chief complaint: RML nodule HPI Aby Madrigal is a 59 y.o. female with hypertension, CAD status post PCI recently in June 2024, cigarette smoking who is presenting to clinic via telemedicine as a new patient after being referred by Dr. Jarocho Saldaña. Patient reports recent admission to [place] ICU for hypertensive emergency. This prompted a CT of the chest which was positive for right middle lobe nodule. She then underwent PCI here at [facility] in June. She is [...] PFTs on file. CTA chest 04/21/2024 at [facility]: Right middle lobe approximately 1.2 cm solid nodule appreciated Subsequent PET CT 2024 at [facility]: Right middle lobe nodule is faintly PET [...] pretest probability of (more content not included)... [facility] 10-03-2024 Note REASON FOR VISIT + H [...] metoprolol - CT A/P Jun 2019 in [place], [place] performed for abd pain, incidentally detected [...] 25 mg by (more content not included)... [facility] 09-04-[address] Cardiology - [facility] Subjective Aby Madrigal is a 59 y.o. year old female patient being seen for follow up [facility] in Jun 2024 for [...] infarction) (CMS/HCC) Hypokalemia Coronary artery disease involving kasaan coronary artery of kasaan heart without angina pectoris Depression, major, severe [...] and V6. She was then admitted to [facility] on 07/11/2024 with NSTEMI. [...] and Affect: M (more content not included)... [facility] 07-20-2024 Note Attestation signed by [...] Age: 59 y.o. : 1965 Account No.: [id number] Referring physician: Dr. Jarocho Saldaña Chief complaint: RML nodule HPI Aby Madrigal is a 59 y.o. female with hypertension, CAD status post PCI recently in June 2024,, cigarette smoking who is presenting to clinic via telemedicine as a new patient after being referred by Dr. Jarocho Saldaña. Patient reports recent admission to [facility] for hypertensive emergency. This prompted a CT of the chest which was positive for right middle lobe nodule. She then underwent PCI here at [facility] in June. She is [...] PFTs on file. CTA chest 04/21/2024 at [facility]: Right middle lobe approximately 1 cm spiculated nodule appreciated [facility] lobe nodule is faintly PET [...] alcohol. She reports (more content not included)... [facility] 07-18-2024 Note REASON FOR VISIT [...] metoprolol - CT A/P Jun 2019 in [place], [place] performed for abd pain, incidentally detected [...] History: Diagnosis Date Abnormal ECG Diabetes mellitus ([facility]) Hyperlipidemia Hypertension Obstructive sleep apnea Panic attacks Stroke ([facility]) Past Surgical History: Procedure Laterality Date [...] Rfl: carvedilol (C (more content not included)... [facility] 07-18-2024 Note 07/18/24 1001 Referral Data Referral Source workers compensation defense attorney Referral Reason Information Patient Information Primary Caregiver Self Activities of Daily Living Assistive Device Not applicable Living Arrangement (Current/Prior to Hospitalization) Private residence Behavior Oriented Discharge Planning Support Systems Children;Family members Type of Residence Private residence Patient's goal for discharge home Patient recently discharged from [facility] to home. Resides at home alone. Discharge plan is home. [facility] 07-18-2024 Note Patient sent to ED f or hypotension and dizziness/lightheadedness [facility] 07-12-2024 Note Hospital Medicine Discharge Summary Final Discharge Diagnosis: NSTEMI Admission Diagnosis: Hypokalemia [E87.6] NSTEMI (non-ST elevated myocardial infarction) (CMS/HCC) [I21.4] Hypertensive urgency [I16.0] Adenoma of left adrenal gland [D35.02] Resistant hypertension [I1A.0] Atherosclerosis of kasaan coronary artery of kasaan heart without angina pectoris [I25.10] Coronary artery disease involving kasaan coronary artery of kasaan heart with unstable angina pectoris ([facility]/HCC) [I25.110] Type 2 diabetes mellitus without complication, without long-term current use of insulin ([facility]) [E11.9] Hospital course: 59yoF with CAD s/p LAD SARKIS 11 days ago who was admitted to [facility] on 07/11 for chest pain. patient initially presented to [facility] for uncomfortable feeling in her chest and was found to have elevated troponins and new ischemic changes on EKG. Infusion and cardiology was consulted transferred to [facility] for further evaluation. Initially the patient had blood pressures up to 192/65 for which home medications were restarted. Troponins at [facility] were negative and there were no EKG changes concerning for ischemia. Echo was performed which showed EF 70 to 75%. she was cleared from cardiology for discharge and had resolved. Surgical, Invasive or Diagnostic Procedures Done During Admission: None Consultations During Admission: Cardiology Dear Dr. Lidia MD, [facility] is advised to follow up with [...] Center 07/18/2024 8:20 AM Feng Christie MD [facility] ENDOCR [facility] 07/20/2024 1:00 PM Richa Viramontes MD [facility] ONC [facility] 09/05/2024 1:00 PM Bijan Mitchell MD [facility] Your medication list START taking these [...] Your Medications These medications were sent to [facility]/pharmacy #[id number] [place] [id number] isosorbide mononitrate ER 60 mg 24 hr [...] activity In process (more content not included)... [facility] 07-11-2024 Note 07/11/24 1817 Financial [...] place to sleep or slept in a detention (including now)? N Transportation Needs In the [...] How often do you attend latter-day or jain services? Never Do you belong to any [...] In the past 12 months has the [employer], gas, oil, or water [employer] threatened to shut off services in your home? 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 Source workers compensation defense attorney Referral Reason Psychosocial assessment Patient Information Primary Caregiver Self Accompanied by/Relationship Daughter (Rosita); Sownktql-ut-zbd (Yesy) Activities of Daily Living Assistive Device Not applicable Living Arrangement (Current/Prior to Hospitalization) Private residence (Lives at home by herself) Ambulation Independent Dressing Independent Feeding Independent Behavior Oriented (A&Ox4) Communication Can write;Talks;Understands speaking;Understands Macedonian;Reads Income Information Income Source Unemployed (receives survivor benefits) Discharge Planning Support Systems Children;Family members (daughter, mofyyuwb-ks-qis, son) Type of Residence Private residence Will patient need Precert for Post Acute needs? No Patient's goal for discharge Home Does the patient need discharge transport arranged? No Completed social work assessment and SDoH screening. Patient was A&Ox4 at this time. Patient's daughter, Rosita, and patient's ggqticmq-ww-wkh, Yesy, were currently present at bedside. Patient reported that she lives at home by herself and she identified her support system as her daughter, Rosita, her nuckizza-yh-ljp, Yesy, and her son, Elie. Patient endorsed [...] any alcohol consumption or recreational drug use. [facility] 07-11-2024 Note Hospital Medicine History and Physical 07/11/2024 12:19 PM THE HOSPITALIST TEAM PREFERS TO USE [employer] FOR COMMUNICATION 7AM-7PM. IF I DO NOT RESPOND WITHIN 15 MINUTES, PLEASE PAGE ME/CALL THROUGH THE ADDICTION MEDICINE PHYSICIAN. FROM 7PM-7AM, PLEASE PAGE [phone](COVR) Chief Complaint Chief Complaint Patient presents with [...] s/p stent placement 11 days ago at [facility] presented to ER as a transfer from [facility] for NSTEMI. Patient states that [...] Noted Hypokalemia 07/11/2024 Coronary artery disease involving kasaan coronary artery of kasaan heart with unstable angina pectoris ([facility]) 07/11/2024 Anxiety 06/30/2024 Type 2 diabetes mellitus without complication, without long-term current use of insulin ([facility]) 06/30/2024 Chest pain 06/30/2024 Elevated troponin 06/30/2024 Hypertensive urgency 06/30/2024 Hypomagnesemia 06/30/2024 QURESHI (dyspnea on exertion) 05/26/2024 Atherosclerosis of kasaan coronary artery of kasaan heart without angina pectoris 05/26/2024 Hyperlipidemia 05/26/2024 Murmur, heart 05/26/2024 Sepsis ([facility]) 07/14/2019 BV (bacterial vaginosis) 10/18/2017 GERD (gastroesophageal reflux disease) 10/18/2017 Essential hypertension 10/18/2017 TIA (transient ischemic attack) 10/18/2017 NSTEMI (non-ST elevated myocardial infarction) ([facility]) 06/29/2024 Assessment and Plan NSTEMI CAD, [...] for GI prophylaxis (more content not included)... [facility] 07-10-2024 Note [facility] Note Reason for cardiology [...] Take 1 tablet (more content not included)... [facility] 07-01-2024 Note Hospital Medicine Discharge [...] hypertension, IBS presents a direct mission from [facility] with a chief complaint of [...] seen on her EKG. She went to [facility] for the symptoms. Labs were [...] on a heparin drip and transferred to [facility] for likely cardiac cath. [...] - Continue metformin. Dear Dr. Lidia MD, [facility] is advised to follow up with you within 1-2 weeks. Items to follow up in ambulatory setting: None Follow-up with: Cardiology and Nephrology Scheduled appointments: Future Appointments Date Time Provider Department Center 07/10/2024 2:20 PM Bijan Mitchell MD [facility] Your medication list START taking these [...] Your Medications These medications were sent to [facility]/pharmacy #[id number] [place], [place] - [address] [facility] [address] [facility] [address] carvedilol 25 mg tablet cloNIDine 0.1 mg [...] days Lab Units (more content not included)... [facility] 07-01-2024 Note [facility] CARDIOLOGY INPAT IENT PROGRESS NOTE Reason for follow up: NSTEMI Subjective Aby Madrigal, a 59 y.o. female patient, is transferred from [facility] for continuity of care. Patient reports that 3 days ago, she woke up in the mid of the night with indigestion, and a feeling fullness, but no pressure like chest pain. She presented to [facility], where she was found to [...] 0.56 06/29/2024 E (more content not included)... [facility] 06-30-2024 Note Patient: Aby antony Procedure Information Date/Time: 06/30/24 1600 Procedure: Coronary angiography (Bilateral) Location: [facility]PA[facility] 3 / [facility] (Cath) Providers: Brunilda Cuellar MD [...] Plan discussed with attending. Additional Equipment Requests [facility] 06-30-2024 Note 06/30/24 1446 Referral Data Referral Source workers compensation defense attorney Referral Reason Follow up;Information Patient Information Primary Caregiver Self Accompanied by/Relationship daughters at bedside Activities of Daily Living Assistive Device Not applicable Living Arrangement (Current/Prior to Hospitalization) Private residence (three to four stairs) Ambulation Independent Dressing Independent Feeding Independent Behavior Oriented Communication Talks;Understands speaking;Understands Macedonian Discharge Planning Support Systems Children (daughters will [...] questions for social work at this time. [facility] 06-30-2024 Note 06/30/24 1431 Admission [...] you able to send link and activate [employer]? No [facility] 06-30-2024 Note Case was discussed w ith the SALVADOR on 06/29/2024. I agree with the history, physical, assessment, and plan of care. I discussed the findings and therapeutic plan. I agree with the documentation, except for any updates below. Maurice Nogueira MD [facility] 06-30-2024 Note Hospital Medicine History and Physical 06/30/2024 1:15 AM THE HOSPITALIST TEAM PREFERS TO USE [employer] CH[employer] FOR COMMUNICATION 7AM-7PM. IF I DO NOT RESPOND WITHIN 15 MINUTES, PLEASE PAGE ME/CALL THROUGH THE ADDICTION MEDICINE PHYSICIAN. FROM 7PM-7AM, PLEASE PAGE [phone](COVR) Chief Complaint Direct admission from [facility] with CP History of Present Illness Aby Madrigal is an 59 y.o. female who came from home with past medical history of anxiety, DM2, hypertension, IBS presents a direct mission from [facility] with a chief complaint of [...] seen on her EKG. She went to [facility] for the symptoms. Labs were [...] on a heparin drip and transferred to [facility] for likely cardiac cath. [...] complication, without long-term current use of insulin ([facility]) 06/30/2024 Chest pain 06/30/2024 Elevated troponin 06/30/2024 Hypertensive urgency 06/30/2024 QURESHI (dyspnea on exertion) 05/26/2024 Atherosclerosis of kasaan coronary artery of kasaan heart without angina pectoris 05/26/2024 Hyperlipidemia 05/26/2024 Murmur, heart 05/26/2024 Sepsis ([facility]) 07/14/2019 BV (bacterial vaginosis) 10/18/2017 GERD (gastroesophageal reflux disease) 10/18/2017 Essential hypertension 10/18/2017 TIA (transient ischemic attack) 10/18/2017 Assessment and Plan Aby Madrigal is an 59 y.o. female who came from home with past medical history of anxiety, DM2, hypertension, IBS presents a direct mission from [facility] with a chief complaint of [...] dysfunction on echoc (more content not included)... [facility] 06-21-[address] Cardiology - [facility] Subjective Aby Madrigal is a 59 y.o. year old female patient being seen for follow up [facility] ED per Dr. Moran. She has [...] attack) QURESHI (dyspnea on exertion) Atherosclerosis of kasaan coronary artery of [place] heart without angina pectoris Hyperlipidemia Murmur, heart [...] Judgment: Judgment no (more content not included)... [facility] 05-26-2024 Note [place] [facility] Note Reason for cardiology [...] PSYCH: appropriate mood, (more content not included)... [facility] 11-25-2022 Note OPERATIVE NOTE OPERATION [...] in 10 years. CC: Kendra Moran M.D. [facility] 10-11-2022 Note Chief Complaint consultation for [...] Oral, (more content not included)... [facility] Comment on above: Result Comment: Elec tronically Signed By: DIPESH BUCKNER, Umm Hogan\Date and Time Signed: 10/11/22 11:01 EST Evaluation + Plan note No data available for this section General Surgery [place] Evaluation note Diagnosis Genitourinary syndrome of menopause- Primary PCB (post coital bleeding) Postcoital bleeding documented in this encounter [facility] SystemEvaluation noteNo assessment information available [facility] Work Phone: Hospital Discharge instructions No data available for this section General Surgery [place] Progress note No data available for this section General Surgery [place] Summary Purpose Family History No Family History [...] section and content) DATE CREATED AUTHOR 12/17/2021 [facility] DATE CREATED AUTHOR AUTHOR'S ORGANIZ ATION 12/16/2022 [facility] DATE CREATED AUTHOR AUTHOR'S ORGANIZ ATION 03/26/2023 [facility] DATE CREATED AUTHOR AUTHOR'S ORGANIZ ATION 02/11/2025 [facility] DATE CREATED AUTHOR AUTHOR'S ORGANIZ ATION 03/04/2025 [facility] DATE CREATED AUTHOR AUTHOR'S ORGANIZ ATION 03/31/2025 [facility] Patient Care team informatio n (unrecognized section and content) Etl Manager Relationship Specialty Start Date End Date Kendra [...] BE BASED ON THE PRIMARY CLINICAL RECORDS. [employer] provides no warranty or guarantee of the accuracy or completeness of information in this document.
[2025-04-09 12:18] LABS: Anion Gap 9.5; BUN Creatinine Ratio 15.3; Calcium 8.8 mg/dL (8.5-10.1); Chloride 108 mmol/L (98-107); Estimated GFR (African America >60 (>=60 mL/min/1.73m^2); Estimated GFR (Non-African Ame 50 (>=60 mL/min/1.73m^2); Glucose 108 mg/dL (74-106); Potassium 3.5 mmol/L (3.5-5.1); Sodium 142 mmol/L (136-145)
== END 2025-04-09 11:47 | disposition home or self-care (01) ==
LOC: LAB 11:47
PROVIDERS: PCP Family Medicine; Visit Provider Family Medicine
DX: E83.42 Hypomagnesemia (principal); E87.6 Hypokalemia
CPT/HCPCS: 36415; 80048

== ENCOUNTER 2025-04-19 15:56 | Outpatient (OUT) | payer MEDICAID, SELFPAY ==
[2025-04-19 16:55] LABS: C. Difficile PCR NEGATIVE
== END 2025-04-19 15:57 | disposition home or self-care (01) ==
LOC: LAB 15:56
PROVIDERS: PCP Family Medicine; Visit Provider Family Medicine
DX: R19.7 Diarrhea, unspecified (principal)
CPT/HCPCS: 36415; 84376; 87045; 87046; 87427; 87493

== ENCOUNTER 2025-05-09 15:16 | Observation (INO) | payer MEDICAID, SELFPAY ==
--- OUTSIDE RECORDS SUMMARY | 2025-04-19 14:15 | XMS_ITS ---
Author Organization The [facility] [place] Address [address] [place] [address] Care Team Providers Care Insurance Marketing Rep Name Role Phone Amadou Murillo Primary Care Provider [phone] REASON FOR VISIT cdiff Encounters Encounter Location Date Provider Diagnosis [facility] [address] [place] [address] 04/19/2025 Amadou Longvalencia Hypertension I10 ; Diabetes mellitus E11.9 ; Hypokalemia E87.6 and Shortness of breath R06.02 Assessments Encounter Date Diagnosis (ICD Code) Assessment Notes Treatment Notes Treatment Clinical Notes Section Notes 04/19/2025 Hypertension (ICD-10 - I10) 04/19/2025 Diabetes mellitus (ICD-10 - E11.9) 04/19/2025 Hypokalemia (ICD-10 - E87.6) 04/19/2025 Shortness of breath (ICD-10 - R06.02) Plan Of Treatment Pending Test Test Name Order Date COMPREHENSIVE METABOLIC PROFILE WITH GFR 04/19/2025 OCCULT BLOOD, FECAL, IMMUNOASSAY 025 CBC W/AUTO DIFF 04/19/2025 GLYCOHEMOGLOBIN A1C 04/19/2025 THYROID PANEL (T4/TSH/FREE T3) Lipid Panel 04/19/2025 Progress Notes * Aby RASMUSSEN SDOB:[birth year] (59 yo F)Acc No.[id number]:04/19/2025 Patient: Aby WILDER :1965 A ge:59 Y S ex:Female Address:[address] [place] [address], [address], [place] [address] Subjective: * Chief Complaints: * C diff * Medical History: * Surgical History: * Hospitalization/Major Diagno stic Procedure: * Medications: Objective: * Vitals: * Physical Examination: Assessment: * Assessment: 1. H ypertension - I10 (Primary) 2 . D iabetes mellitus - E11.9 ?3. H ypokalemia - E87.6 4 . S hortness of breath - R06.02 ? Plan: * Treatment: 2. D iabetes mellitus L AB: COMPREHENSIVE METABOLIC PROFILE WITH GFR L AB: OCCULT BLOOD, FECAL, IMMUNOASSAY L AB: CBC W/AUTO DIFF L AB: GLYCOHEMOGLOBIN A1C L AB: THYROID PANEL (T4/TSH/FREE T3) L AB: Lipid Panel 3. H ypokalemia L AB: COMPREHENSIVE METABOLIC PROFILE WITH GFR L AB: OCCULT BLOOD, FECAL, IMMUNOASSAY L AB: CBC W/AUTO DIFF L AB: GLYCOHEMOGLOBIN A1C L AB: THYROID PANEL (T4/TSH/FREE T3) L AB: Lipid Panel 4. S hortness of breath L AB: COMPREHENSIVE METABOLIC PROFILE WITH GFR L AB: OCCULT BLOOD, FECAL, IMMUNOASSAY L AB: CBC W/AUTO DIFF L AB: GLYCOHEMOGLOBIN A1C L AB: THYROID PANEL (T4/TSH/FREE T3) L AB: Lipid Panel * Procedure Codes: * true * Date: Generated for Garthi hilda/Kareng/eTransmitting on: 0 05/09/2025 03:21 PM EDT
--- OUTSIDE RECORDS SUMMARY | 2025-04-24 12:34 | XMS_ITS ---
Author Organization [facility] [place] Address [address] [place] [address] Care Team Providers Care Warehouse Receiving Clerk Name Role Phone Amadou Murillo Primary Care Provider REASON FOR VISIT Stool Tests Encounters Encounter Location Date Provider Diagnosis [facility] [address] [place] [address] 04/24/2025 Amadou Murillo Plan Of Treatment No Information Progress Notes * NATAEVELYN Aby SDOB:[birth year] (59 yo F)Acc No.[id number]:04/24/2025 Patient: Aby WILDER :1965 A ge:59 Y S ex:Female Address:[address] [place] [address], [facility] [address] [address] * true * Date: Generated for Maryjo stevens/Live/eTransmitting on: 0 05/09/2025 03:21 PM EDT
[2025-05-09] VITALS (32 sets, daily range): BP systolic 132–199; BP diastolic 36–77; PULSE 48–75; TEMP 36.3–36.8; O2SAT 93–99; BMI 35.4; BMI 34.7
--- OUTSIDE RECORDS SUMMARY | 2025-05-09 15:22 | XMS_ITS | Encounter Summary ---
Author Organization [facility] tem Address [id number] [address] [place] [address] Care Team Providers Care Video Clerk Name Role Phone Carlito Murillo MD Primary Care Provider [phone] Reason for Referral * Diagnostic Imaging (Routine) - Pending Review Specialty Diagnoses / Procedures Referred By Contac t Referred To Contact Radiology Diagnoses Primary aldosteronism Procedures IR venography venous sample Feng Cloud MD [address] [place] [address] Phone: tel: fax: Referral ID Status Reason Start Date Expiration Date V isits Requested Visits Authorized [id number] Pending Review 01/23/2025 01/23/2026 1 1 Encounter Details Date Type Department Care Team (Latest Contact Info) Description 01/23/2025 Orders Only [facility] Division [facility] - Interventional Radiology [address] [place] [id number] Feng Cloud MD [address] [place] [address] Primary aldosteronism (CMS-HCC) (Primary Dx) Social History Tobacco Use Types Packs/Day Years Used Date Smoking Tobacco: Former Cigarettes 1 40 Smokeless Tobacco: Never Alcohol Use Standard Drinks/Week Comments Not Currently 2 (1 standard drink = 0.6 oz pur e alcohol) Childcare Answer Date Recorded Childcare Unknown 05/03/2019 Employment Answer Date Recorded Employment Unknown 05/03/2019 Purpose - Life Answer Date Recorded Purpose and direction in life Unknown Comments No Sex and Gender Information Value Date Recorded Sex Assigned at Not on file Legal Sex Female 11:40 AM EDT Gender Identity Not on file Sexual Orientation Not on file documented as of this encounter Plan of Treatment Upcoming Encounters Date Type Department Care Team (Late st Contact Info) Description 06/01/2025 1:00 PM EDT Office Visit [facility] [address] [place] [id number] Afsaneh Jacome, WASTE P[employer]ER HAMMERMILL OPERATOR-PILL MACHINE OPERATOR [address] [place] [address] documented as of this encounter Results * IR venography venous sample (02/07/2025 10:00 AM EDT) Anatomical Region Laterality Modality IR N/A X-Ray Angiograph y 02/07/2025 9:57 PM EDT Narrative 02/07/2025 10:05 PM EDT Procedure: Bilateral adrenal vein sampling Staff: Roxy [...] was achieved using a micropuncture set. A Bentson wire was advanced into the IVC and a 5 Icelandic vascular sheath was placed. Selective catheterization of the right adrenal vein was performed using [facility] catheter and samples obtained. There was another [...] results to follow separately. Finalized by Gage Ramsey MD on 02/07/2025 10:05 PM Procedure Note Gage Ramsey MD - 02/07/2025 Procedure: Bilateral adrenal vein sampling Staff: Roxy Resident: None Contrast: 25 mL Omnipaque 300 iv Fluoroscopy time: 14.3 minutes pulsed at 7.5 pulses per second. Referenceair kerma of 909 mGy Complications: None Medications: Versed 1 mg iv, Fentanyl 50 mcg iv. Moderate sedation wasmonitored by radiology nursing staff. Total sedation time 60 minutes Indication: Primary aldosteronism and left adrenal mass. Procedure: Using real-time ultrasound guidance, access to the right commonfemoral vein was achieved using a micropuncture set. A Respicardia wire wasadvanced into the IVC and a 5 Icelandic vascular sheath was placed. Selectivecatheterization of the right adrenal vein was performed using RDC catheterand samples obtained. There was another questionable right adrenal vein thatwas selected and sampled as well. Next, selective catheterization of the left adrenal vein was performedusing a Park 3 catheter and samples obtained. A sample was alsoobtained from the IVC. Samples were hand carried to the laboratory to betested for aldosterone and cortisol. At the conclusion of the procedure,the catheter was removed and hemostasis was obtained by manual compression. Ultrasound image was saved in PACS from records. Findings: Ultrasound shows an anechoic and compressible right commonfemoral vein. Impression: Successful bilateral adrenal vein sampling. Interpretation oflaboratory results to follow separately. Finalized by Gage Ramsey MD on 02/07/2025 10:05 PM Feng Cloud MD IM IR ORDERABLES Final Result documented in this encounter Visit Diagnoses Diagnosis Primary aldosteronism- Primary Hyperaldosteronism, unspecified Primary aldosteronism- Primary Hyperaldosteronism, unspecified documented in this encounter Care Teams Video Clerk Relationship Specialty Start Date End Date Carlito Murillo MD PCP - General Family Medicine 06/06/19 documented as of this encounter
--- OUTSIDE RECORDS SUMMARY | 2025-05-09 15:22 | XMS_ITS | Referral Summary ---
Author Organization [facility] Address [address] [place] [address] Care Team Providers Care Garage Mechanic Name Role Phone Carlito Murillo MD Primary Care Provider [phone] Encounters Date Type Department Care Team Description 04/23/2025 2:15 PM EDT Office Visit [address] [phone] Rafa Spence MD Coronary artery disease involving false pass coronary artery of false pass heart without angina pectoris (Primary Dx); Primary hypertension; Status post insertion of drug eluting coronary artery stent; Renal artery stenosis 04/20/2025 Orders Only [address] [phone] Mary Gonzalez MD 04/10/2025 1:00 PM EDT Follow-Up [facility] Practice at [address] [phone] Feng Cloud MD Hypertension due to endocrine disorder (Primary Dx); Adenoma of left adrenal gland; Primary aldosteronism; Chest pain; NSTEMI (non-ST elevated myocardial infarction) ([facility]/HCC) 03/02/2025 Orders Only [facility] at [facility] Endocrinology [address] [place] [phone] Feng Cloud MD 02/26/2025 Telephone [facility] at [facility] Nephrology [address] [place] [phone] Magno Armando 02/26/2025 2:00 PM EDT Office Visit [facility] ([place], [place]) [address] [place] [address] Rafa Spence MD Coronary artery disease involving false pass coronary artery of false pass heart without angina pectoris (Primary Dx); Primary hypertension; Status post insertion of drug eluting coronary artery stent; Renal artery stenosis from Last 3 Months Allergies Active Allergy Reactions Criticality Noted Date Comments Lisinopril Cough 06/21/2024 Amlodipine Other 06/21/2024 Twitchy eye Alprazolam Other 05/26/2024 Medications aspirin 81 mg EC tablet Take 81 mg by mouth in the morning. Active metFORMIN (Glucophage) 500 mg tablet Take 500 mg by mouth with breakfast and with evening meal. Active LORazepam (Ativan) 0.5 mg tablet Take 1 mg by mouth if needed for anxiety. 017 Active Protonix 40 mg EC tablet Take 40 mg by mouth if needed each day. 023 Active QUEtiapine (SEROquel) 25 mg tablet Take 100 mg by mouth at bedtime. Active clopidogrel (Plavix) 75 mg tabletIndication s:Chest pain,NSTEMI (non-ST elevated myocardial infarction) (CMS/HCC) Take 1 tablet (75 mg) by mouth in the morning. 90 tablet 3 024 2024 Active rosuvastatin (Crestor) 40 mg tabletIndication s:Chest pain,NSTEMI (non-ST elevated myocardial infarction) (CMS/HCC) Take 1 tablet (40 mg) by mouth in the morning. 30 tablet 024 2024 Active isosorbide mononitrate ER (Imdur) 60 mg 24 hr tabletIndication s:Resistant hypertension Take 1 tablet (60 mg) by mouth in the morning for 98 doses. Do not crush or chew. 30 tablet 3 Active Additional Information Patient taking differently:60 mg oralTwice a day (mid-day and evening), Do not crush or chew., Reported on 10/03/2024 Invokana 100 mg Take 100 mg by mouth in the morning. Active hydrALAZINE (Apresoline) 50 mg tablet Take 50 mg by mouth if needed. Active QUEtiapine (SEROquel) 100 mg tablet Take 100 mg by mouth in the morning. Active LORazepam (Ativan) 1 mg tablet TAKE 1 TABLET BY MOUTH THREE TIMES A DAY FOR 30 DAYS Active albuterol (Ventolin HFA) 90 mcg/actuation inhalerIndicatio ns:Wheezing Inhale 2 puffs every 4 (four) hours if needed for wheezing or shortness of breath. 18 g 5 2024 Active sodium chloride 1,000 mg tabletIndication s:Primary aldosteronism,Hy pertension due to endocrine disorder Take 1 tablet 3 times a day for 3 days, collect urine from day 3- 4 12 tablet Active Additional Information Patient not taking.Reported on 04/23/2025 carvedilol (Coreg) 25 mg tabletIndication s:Coronary artery disease involving false pass coronary artery of false pass heart without angina pectoris,Primary hypertension Take 1.5 tablets by mouth twice daily. Active spironolactone (Aldactone) 50 mg tabletIndication s:Primary hypertension Take 0.5 tablets (25 mg) by mouth in the morning. Active carvedilol (Coreg) 25 mg tabletIndication s:Chest pain,NSTEMI (non-ST elevated myocardial infarction) (CMS/HCC) Take 1 tablet (25 mg) by mouth with breakfast and with evening meal. 180 tablet 3 2024 Discontinued(R eorobbi) cloNIDine (Catapres) 0.2 mg tablet Take 1 tablet by mouth Twice daily at 6am and 6pm. 2024 Discontinued hydroCHLOROthiaz lev (HYDRODiuril) 25 mg tablet Take 1 tablet by mouth in the morning. 2024 Discontinued losartan (Cozaar) 100 mg tablet Take 100 mg by mouth in the morning. 2024 Discontinued carvedilol (Coreg) 25 mg tabletIndication s:Chest pain,NSTEMI (non-ST elevated myocardial infarction) (CMS/HCC) Take 1 tablet (25 mg) by mouth with breakfast and with evening meal. 025 2024 Discontinued(D ose adjustment) spironolactone (Aldactone) 50 mg tabletIndication s:Hypertension due to endocrine disorder,Adenoma of left adrenal gland,Primary aldosteronism Take 1 tablet (50 mg) by mouth in the morning. 60 tablet 025 2024 Discontinued(D ose adjustment) Active Problems Problem Noted Date Diagnosed Date Hypertension due to endocrine disorder Adenoma of left adrenal gland 01/09/2025 Resistant hypertension 10/05/2024 Primary aldosteronism 10/03/2024 Depression, major, severe recurrence 09/04/2024 Panic disorder 09/04/2024 Hypokalemia 07/11/2024 Coronary artery disease invo lving false pass coronary artery of false pass heart without angina pectoris 07/11/2024 Anxiety 06/30/2024 Type 2 diabetes mellitus wit hout complication, without long-term current use of insulin 06/30/2024 Chest pain 06/30/2024 Elevated troponin 06/30/2024 Hypomagnesemia 06/30/2024 NSTEMI (non-ST elevated myocardial infarction) 0 06/29/2024 QURESHI (dyspnea on exertion) 05/26/2024 Hyperlipidemia 05/26/2024 Murmur, heart 05/26/2024 Sepsis 07/14/2019 BV (bacterial vaginosis) 10/18/2017 GERD (gastroesophageal reflux disease) 7 Essential hypertension 10/18/2017 TIA (transient ischemic attack) 10/18/2017 Resolved Problems Problem Noted Date Diagnosed Date Resolved Date Hypertensive urgency 06/30/2024 024 Atherosclerosis of false pass co ronary artery of false pass heart without angina pectoris 05/26/2024 Social History Tobacco Use Types Packs/Day Years Used Date Smoking Tobacco: Former Cigarettes 1 45 1 977 - 2021 Smokeless Tobacco: Never Tobacco Cessation:Counseling Given: Not Answered Alcohol Use Standard Drinks/Week Comments Not Currently 0 (1 standard drink = 0.6 oz pure alcohol) Used to drink a lot on the weekend [facility] Utilities Answer Date Recorded In the past 12 months has th e electric, gas, oil, or water company threatened to shut off services in your home? No 07/18/2024 Humiliation, Afraid, Rape, and Kick questionnair e Answer Date Recorded Within the last year, have y ou been afraid of your partner or ex-partner? No 10/26/2024 Within the last year, have y ou been humiliated or emotionally abused in other ways by your partner or ex-partner? No Within the last year, have y ou been kicked, hit, slapped, or otherwise physically hurt by your partner or ex-partner? No 10/26/2024 Within the last year, have y ou been raped or forced to have any kind of sexual activity by your partner or ex-partner? No 10/26/2024 Social Connection and Isolat ion Panel [NHANES] Answer Date Recorded In a typical week, how many times do you talk on the phone with family, friends, or neighbors? More than three times a week 07/11/2024 How often do you get togethe r with friends or relatives? More than three times a week 07/11/2024 How often do you attend chur ch or buddhism services? Never 07/11/2024 Do you belong to any clubs o r organizations such as orthodoxy groups, unions, fraternal or athletic groups, or school groups? No 07/11/2024 How often do you attend meet ings of the clubs or organizations you belong to? Never 07/11/2024 Are you , , di vorced, , never , or living with a partner? 07/11/2024 AUDIT-C Answer Date Recorded Q1: How often do you have a drink containing alcohol? Never 07/11/2024 Q2: How many drinks containi ng alcohol do you have on a typical day when you are drinking? Patient does not drink Q3: How often do you have si x or more drinks on one occasion? Never 07/11/2024 Overall Financial Resource Strain (CARDIA) Answe r Date Recorded How hard is it for you to pa y for the very basics like food, housing, medical care, and heating? Not hard at all 07/18/2024 PHQ-2 Answer Date Recorded Patient Health Questionnaire-2 Score 0 10/26/2024 [facility] [place] [facility] - Occupational Stress Questionnaire Answer Date Recorded Do you feel stress - tense, restless, nervous, or anxious, or unable to sleep at night because your mind is troubled all the time - these days? Only a little 07/11/2024 Transportation Answer Date Recorded In the past 12 months, has l ack of transportation kept you from medical appointments or from getting medications? No 06/23 In the past 12 months, has l ack of transportation kept you from meetings, work, or from getting things needed for daily living? No 07/18/2024 Housing Stability Vital Sign Answer Logan e Recorded In the last 12 months, was t here a time when you were not able to pay the mortgage or rent on time? No 07/11/2024 Number of Times Moved in the Last Year Not on fi le 07/11/2024 Homeless in the Last Year Not on file 2023 Hunger Vital Sign Answer Date Recorded Within the past 12 months, y ou worried that your food would run out before you got the money to buy more. Never true 07/18/20 Within the past 12 months, t he food you bought just didn't last and you didn't have money to get more. Never true 07/18/2024 Comments No Sex and Gender Information Value Date Recorded Sex Assigned at Not on file Legal Sex Female 10:42 PM EDT Gender Identity Not on file Sexual Orientation Not on file Last Filed Vital Signs Vital Sign Reading Time Taken Comments Blood Pressure 152/77 04/23/2025 2:18 PM EDT Pulse 66 04/23/2025 2:18 PM EDT Temperature 36.4 C (97.6 F) 10/26/2024 12:48 PM EST Respiratory Rate 16 07/18/2024 10:57 AM EDT Oxygen Saturation 97% 04/23/2025 2:18 PM EDT Inhaled Oxygen Concentration - - Weight 90.7 kg (200 lb) 04/23/2025 2:18 PM EDT Height 160 cm (5' 3 ) 04/23/2025 2:18 PM EDT Body Mass Index 35.43 04/23/2025 2:18 PM EDT Plan of Treatment Upcoming Encounters Date Type Department Care Team (Late st Contact Info) Description 07/24/2025 1:00 PM EDT Follow-Up [facility] at [facility] [address] [place] [phone] Feng Cloud MD [address] [facility] [address] [place] [address] Medical Devices Implanted Type Area Acid Tester Device Identifier Shelf Expiration Date Model / Serial / Lot Stent,Synergy Mr 2.75 X 20 - [id number] - [id number] Implanted:Qty: 1 on 06/30/2024 by Brunilda Cuellar MD at [facility] Drug Eluting Stent [employer] [id number] 04/13/2025 [id number] / [id number] / [id number] Procedures Procedure Name Priority Date/Time Associated Diagnosis Comments BASIC METABOLIC PANEL Routine 04/09/2025 2:39 PM EDT CBC Routine 04/01/2025 2:39 PM EDT COMPREHENSIVE METABOLIC PANEL Routine 04/01/2025 2:39 PM EDT COMPREHENSIVE METABOLIC PANEL Routine 03/30/2025 2:38 PM EDT MAGNESIUM Routine 03/30/2025 2:38 PM EDT CBC Routine 03/25/2025 2:37 PM EDT COMPREHENSIVE METABOLIC PANEL Routine 03/25/2025 2:37 PM EDT C-REACTIVE PROTEIN Routine 03/25/2025 2: 37 PM EDT ECG 12-LEAD Routine 03/25/2025 2:36 PM EDT VASC US LOWER EXTREMITY ARTERIAL DUPLEX RIGHT Routine 02/08/2025 2:32 PM EDT from Last 3 Months Results * Basic metabolic panel (04/09/2025 2:39 PM EDT) Blood Venous blood specimen / Unknown us Historical Provider LAB BLOOD ORDERABLES Kate l Result * CBC (04/01/2025 2:39 PM EDT) Only the most recent of2 resultswithin the time period is included. Blood Venous blood specimen / Unknown Result [facility] Provider LAB BLOOD ORDERABLES Kate l Result * Comprehensive metabolic panel (04/01/2025 2:39 PM EDT) Only the most recent of3 resultswithin the time period is included. Blood Venous blood specimen / Unknown Result [facility] Provider LAB BLOOD ORDERABLES Kate l Result * Magnesium (03/30/2025 2:38 PM EDT) Blood Venous blood specimen / Unknown Result [facility] Provider LAB BLOOD ORDERABLES Kate l Result * C-reactive protein (03/25/2025 2:37 PM EDT) Blood Venous blood specimen / Unknown Result [facility] Provider LAB BLOOD ORDERABLES Kate l Result * ECG 12 lead (03/25/2025 2:36 PM EDT) Result [facility] Provider ECG ORDERABLES Final Res ult * Vascular US lower extremity arterial duplex right (02/08/2025 2:32 PM EDT) Anatomical Region Laterality Modality Lower Extremities Ultrasound Result [facility] Provider IMG CV VASCULAR PROCEDURE S Final Result from Last 3 Months Insurance [address] [place] [address] [facility] MEDICAID Advance Directives * Full Code (Latest Code Status on File) Date Activated Date Inactivated Comments 07/11/2024 12:18 PM 07/12/2024 1:06 PM * Full Code Date Activated Date Inactivated Comments 06/30/2024 1:12 AM 07/01/2024 2:41 PM Care Teams Garage Mechanic Relationship Specialty Start Date End Date Carlito Murillo MD [address] [place], [place] [address] [place] [address] PCP - General 05/24/24
--- OUTSIDE RECORDS SUMMARY | 2025-05-09 15:22 | XMS_ITS | Clinical Summary ---
Author Organization [facility] Address [address] [address] Care Team Providers Care Electrical Accessories Ii Assembler Name Role Phone Carlito Murillo MD Primary Care Provider [phone] Allergies Active Allergy Reactions Criticality Noted Date [...] or shortness of breath. 18 g 5 024 2024 Active sodium chloride 1,000 mg tabletIndication s:Primary aldosteronism,Hy pertension due to endocrine disorder Take 1 tablet 3 times a day for 3 days, collect urine from day 3- 4 12 tablet Active Additional Information Patient not taking.Reported on 04/23/2025 carvedilol (Coreg) 25 mg tabletIndication s:Coronary artery disease involving united keetoowah coronary artery of united keetoowah heart without angina pectoris,Primary hypertension Take 1.5 tablets by mouth twice daily. Active spironolactone (Aldactone) 50 mg tabletIndication s:Primary hypertension Take 0.5 tablets (25 mg) by mouth in the morning. Active carvedilol (Coreg) 25 mg tabletIndication s:Chest pain,NSTEMI (non-ST elevated myocardial infarction) (CMS/HCC) Take 1 tablet (25 mg) by mouth with breakfast and with evening meal. 180 tablet 3 2024 Discontinued(R eokatharineer) cloNIDine (Catapres) 0.2 mg tablet Take 1 tablet by mouth Twice daily at 6am and 6pm. 2024 Discontinued hydroCHLOROthiaz lev (HYDRODiuril) 25 mg tablet Take 1 tablet by mouth in the morning. 2024 Discontinued losartan (Cozaar) 100 mg tablet Take 100 mg by mouth in the morning. 2024 Discontinued carvedilol (Coreg) 25 mg tabletIndication s:Chest pain,NSTEMI (non-ST elevated myocardial infarction) ([facility]/HCC) Take 1 tablet (25 mg) by mouth with breakfast and with evening meal. 025 2024 Discontinued(D ose adjustment) spironolactone (Aldactone) 50 mg tabletIndication s:Hypertension due to endocrine disorder,Adenoma of left adrenal gland,Primary aldosteronism Take 1 tablet (50 mg) by mouth in the morning. 60 tablet 025 2024 Discontinued(D ose adjustment) Active Problems Problem Noted Date Diagnosed Date Hypertension due to endocrine disorder 5 Adenoma of left adrenal gland 01/09/2025 Resistant hypertension 10/05/2024 Primary aldosteronism 10/03/2024 Depression, major, severe recurrence 09/04/2024 Panic disorder 09/04/2024 Hypokalemia 07/11/2024 Coronary artery disease invo lving united keetoowah coronary artery of united keetoowah heart without angina pectoris 07/11/2024 Anxiety 06/30/2024 [...] Diagnosed Date Resolved Date Hypertensive urgency 06/30/2024 Atherosclerosis of united keetoowah co ronary artery of united keetoowah heart without angina pectoris 05/26/2024 Encounters Date Type Department Care Team Description 04/23/2025 2:15 PM EDT Office Visit [place] [address] [place] [phone] Rafa Spence MD Coronary artery disease involving united keetoowah coronary artery of united keetoowah heart without angina pectoris (Primary Dx); Primary hypertension; Status post insertion of drug eluting coronary artery stent; Renal artery stenosis 04/20/2025 Orders Only [facility] [place] [address] [place] [phone] Mary Gonzalez MD 04/10/2025 1:00 PM EDT Follow-Up [facility] at [address] [phone] Feng Cloud MD Hypertension due to endocrine disorder (Primary Dx); Adenoma of left adrenal gland; Primary aldosteronism; Chest pain; NSTEMI (non-ST elevated myocardial infarction) ([facility]) 03/02/2025 Orders Only [facility] at [facility] Endocrinology [address] [place] [phone] Feng Cloud MD 02/26/2025 2:00 PM EDT Office Visit [address] [phone] Rafa Spence MD Coronary artery disease involving united keetoowah coronary artery of united keetoowah heart without angina pectoris (Primary Dx); Primary hypertension; Status post insertion of drug eluting coronary artery stent; Renal artery stenosis 02/26/2025 Telephone [facility] at [facility] Nephrology [address] [place] [phone] Armando Kiran from Last 3 Months Family History Medical History Relation Name Comments Accidental Father Lung cancer Mother Lung cancer Sister Relation Name Status Comments Brother Alive Father Mother Sister Social History Tobacco Use Types Packs/Day Years Used Date Smoking Tobacco: Former Cigarettes 1 45 1 977 - 2021 Smokeless Tobacco: Never Tobacco Cessation:Counseling Given: Not Answered Alcohol Use Standard Drinks/Week Comments Not Currently 0 (1 standard drink = 0.6 oz pure alcohol) Used to drink a lot on the weekend [facility] Utilities Answer Date Recorded In the past 12 months has e electric, gas, oil, or water company [...] 07/11/2024 How often do you attend chur or yarsanism services? Never 07/11/2024 Do you belong to any clubs o r organizations such as pentecostal groups, unions, fraternal [...] Recorded Patient Health Questionnaire-2 Score 0 10/26/2024 [facility] [place] [facility] Occupat ional Health - Occupational Stress [...] money to buy more. Never true 07/18/20 24 Within the past 12 months, t he [...] Info) Description 07/24/2025 1:00 PM EDT Follow-Up [facility] Comprehensive Medical Practice at [facility] [address] [place] [phone] Feng Cloud MD [address] [facility] [address] [place] [address] Health Maintenance Due Date Last Done Comments CT Colonography 1964 Colonoscopy 1964 Colorectal Cancer Screening 1964 Diabetes: Hemoglobin A1C 1964 FIT-DNA 1964 FIT 1964 FOBT 1964 Sigmoidoscopy 1964 Diabetes: Retinopathy Screening 1974 Diabetes: Urine Protein Screening 1983 Pneumococcal Vaccine: Pediatrics (0 to 5 Years) and At-Risk Patients (6 to 64 Years) (1 of 2 - PCV) 1983 Pap Smear 1985 Adult Tetanus 1986 Cervical Cancer Screening 1994 HPV/Cotest 1994 Mammogram 2004 Zoster Vaccines (1 of 2) 2014 COVID-19 Vaccine (2023-2 5 season) 2024 04/14/2021, 03/11/2021 Influenza Vaccine (Season Ended) 2025 11/07/2021, 10/25/2020, 09/20/2017 Depression Screening 10/26/2025 10/26/2024 HIB Vaccines Aged Out No longer eligi ble based on patient's age to complete this topic HPV Vaccines Aged Out No longer eligi ble based on patient's age to complete this topic IPV Vaccines Aged Out No longer eligi ble based on patient's age to complete this topic Meningococcal B Vaccine Aged Out No l onger eligible based on patient's age to complete this topic Meningococcal Vaccine Aged Out No lilian suzanne eligible based on patient's age to complete this topic Rotavirus Vaccines Aged Out No longer eligible based on patient's age to complete this topic Medical Devices Implanted Type Area Early Childhood Lead Teacher Device Identifier Shelf Expiration Date Model / Serial / Lot Stent,Synergy Mr 2.75 X 20 - [id number] - [id number] Implanted:Qty: 1 on 06/30/2024 by Brunilda Cuellar MD at [facility] Drug Eluting Stent [employer] [id number] 04/13/2025 [id number] / [id number] / [id number] Procedures Procedure Name Priority Date/Time Associated Diagnosis [...] Blood Venous blood specimen / Unknown Result [facility] Provider LAB BLOOD ORDERABLES Kate l Result * CBC (04/01/2025 2:39 PM EDT) Only the most recent of2 resultswithin the time period is included. Blood Venous blood specimen / Unknown Historical Provider LAB BLOOD ORDERABLES Kate l Result * Comprehensive metabolic panel (04/01/2025 2:39 PM EDT) Only the most recent of3 resultswithin the time period is included. Blood Venous blood specimen / Unknown us Historical Provider LAB BLOOD ORDERABLES Kate l Result * Magnesium (03/30/2025 2:38 PM EDT) Blood Venous blood specimen / Unknown [facility] Provider LAB BLOOD ORDERABLES Kate l Result * C-reactive protein (03/25/2025 2:37 PM EDT) Blood Venous blood specimen / Unknown [facility] Provider LAB BLOOD ORDERABLES Kate l Result * ECG 12 lead (03/25/2025 2:36 PM EDT) [facility] Provider ECG ORDERABLES Final Res ult * Vascular US lower extremity arterial duplex right (02/08/2025 2:32 PM EDT) Anatomical Region Laterality Modality Lower Extremities Ultrasound [facility] Provider IMG CV VASCULAR PROCEDURE S Final Result from Last 3 Months Insurance [address] [place] [address] [facility] MEDICAID Advance Directives * Full Code (Latest Code Status on File) Date Activated Date Inactivated Comments 07/11/2024 12:18 PM 07/12/2024 1:06 PM * Full Code Date Activated Date Inactivated Comments 06/30/2024 1:12 AM 07/01/2024 2:41 PM Care Teams Electrical Accessories Ii Assembler Relationship Specialty Start Date End Date Carlito Murillo MD [address] [facility] [address] [address] PCP - General 05/24/24
--- OUTSIDE RECORDS SUMMARY | 2025-05-09 15:22 | XMS_ITS | Clinical Summary ---
Author Organization [employer] Address [id number] [address] [place] [address] Care Team Providers Care Depot Manager Name Role Phone Carlito Murillo MD Primary Care Provider [phone] Allergies Active Allergy Reactions Criticality Noted Date Comments Alprazolam Abnormal Behavior 02/07/2025 sadness Amlodipine Other (See Comments) 02/07/2025 Eye twitch Lisinopril Cough 02/07/2025 Medications LORazepam (ATIVAN) 0.5 mg tablet Take 0.5 mg by mouth as needed. 7 Active amitriptyline (ELAVIL) 100 mg tablet Take 100 mg by mouth nightly. Active citalopram (CeleXA) 20 mg tablet Take 20 mg by mouth daily. Active irbesartan (AVAPRO) 300 mg tablet Take 300 mg by mouth nightly. Active hydrOXYzine (ATARAX) 25 mg tablet Take 1 tablet (25 mg total) by mouth 3 (three) times a day as needed. Active aspirin 81 mg Take 1 tablet (81 mg total) by mouth in the morning. Active INVOKANA 100 mg tablet Take 1 tablet (100 mg total) by mouth in the morning. 4 Active carvediloL (COREG) 25 mg tablet Take 1 tablet (25 mg total) by mouth in the morning and 1 tablet (25 mg total) at noon and 1 tablet (25 mg total) in the evening. Take with meals. Active clopidogreL (PLAVIX) 75 mg tablet Take 1 tablet (75 mg total) by mouth in the morning. Active hydrALAZINE (APRESOLINE) 50 mg tablet Take 1 tablet (50 mg total) by mouth daily as needed (as neded). 4 Active isosorbide mononitrate (IMDUR) 60 mg 24 hr tablet Take 1 tablet (60 mg total) by mouth in the morning and at bedtime. Active metFORMIN (GLUCOPHAGE) 500 mg tablet Take 1 tablet (500 mg total) by mouth in the morning and 1 tablet (500 mg total) in the evening. Take with meals. Active pantoprazole (PROTONIX) 40 mg EC tablet Take 1 tablet (40 mg total) by mouth every morning before breakfast. Active rosuvastatin (CRESTOR) 40 mg tablet Take 1 tablet (40 mg total) by mouth in the morning. 4 10/03/20 25 Active QUEtiapine (SEROquel) 100 mg tablet Take 1 tablet (100 mg total) by mouth nightly. Active LORazepam (ATIVAN) 1 mg tablet Take 1 tablet (1 mg total) by mouth 3 (three) times a day as needed for anxiety. 4 Active estradioL (ESTRACE) 0.01 % (0.1 mg/gram) vaginal creamIndications :Genitourinary syndrome of menopause Insert 0.5 g into the vagina nightly for 14 days, THEN 0.5 g 2 (two) times a week for 360 days. 0.5 grams vaginally each night for two weeks and then twice weekly (ex. Wednesday and ). In additional to vaginal use, apply pea size amount to fingertip and rub in vulva and vaginal introitus.. 42.5 g 1 5 03/11/20 26 Active Active Problems Problem Noted Date Diagnosed Date HTN (hypertension) 10/18/2017 TIA (transient ischemic attack) 10/18/2017 GERD (gastroesophageal reflux disease) 7 BV (bacterial vaginosis) 10/18/2017 Encounters Date Type Department Care Team Description 03/02/2025 8:45 AM EDT Office Visit [facility] [address] [place] [address] Farzana Damon, SENIOR JAVA WEB APPLICATION DEVELOPER-SUPERVISOR [employer] Genitourinary syndrome of menopause (Primary Dx); PCB (post coital bleeding) 03/02/2025 Travel 02/07/2025 7:39 AM EDT - 02/07/2025 11:15 AM EDT Hospital Encounter [facility] - Interventional Radiology [address] [place] [address] Feng Cloud MD Moawad, Sherif M, MD Primary aldosteronism (CMS-HCC) (Primary Dx) Discharge Disposition: Home 02/07/2025 Travel from Last 3 Months Family History Medical History Relation Name Comments Breast cancer Maternal Aunt Breast cancer Mother Cancer Mother lung Cancer Sister lung Colon cancer Neg Hx Ovarian cancer Neg Hx Pancreatic cancer Neg Hx Uterine cancer Neg Hx Relation Name Status Comments Father Maternal Aunt Mother Sister Social History Tobacco Use Types Packs/Day Years Used Date Smoking Tobacco: Former Cigarettes 1 40 Smokeless Tobacco: Never Tobacco Cessation:Counseling Given: Not Answered Alcohol Use Standard Drinks/Week Comments Not Currently 2 (1 standard drink = 0.6 oz pur e alcohol) Childcare Answer Date Recorded Childcare Unknown 05/03/2019 Employment Answer Date Recorded Employment Unknown 05/03/2019 Hunger Screening Answer Date Recorded Within the past 12 months we worried whether our food would run out before we got money to buy more. Never True 03/02/2025 Within the past 12 months th e food we bought just didn't last and we didn't have money to get more. Never True 03/02/2025 Purpose - Life Answer Date Recorded Purpose and direction in life Unknown Comments No Sex and Gender Information Value Date Recorded Sex Assigned at Not on file Legal Sex Female 11:40 AM EDT Gender Identity Not on file Sexual Orientation Not on file Last Filed Vital Signs Vital Sign Reading Time Taken Comments Blood Pressure 118/68 03/02/2025 9:18 AM EDT Pulse 65 02/07/2025 11:00 AM EDT Temperature - - Respiratory Rate 20 02/07/2025 11:00 AM EDT Oxygen Saturation 96% 02/07/2025 11:00 AM EDT Inhaled Oxygen Concentration - - Weight 92 kg (202 lb 12.8 oz) 03/02/2025 9:18 AM EDT Height 162.6 cm (5' 4 ) 03/02/2025 9:18 AM EDT Body Mass Index 34.81 03/02/2025 9:18 AM EDT Plan of Treatment Upcoming Encounters Date Type Department Care Team (Late st Contact Info) Description 06/01/2025 1:00 PM EDT Office Visit [facility] [address] [place] [phone] Afsaneh Jacmoe, SENIOR JAVA WEB APPLICATION DEVELOPER-SUPERVISOR [employer] [address] [facility] [address] Health Maintenance Due Date Last Done Comments Depression Screening 1976 Adult BMI Follow Up Plan 1982 DTaP,Tdap and Td Vaccines (1 - Tdap) 1983 Zoster (Shingles) Vaccine (1 of 2) 2014 COVID-19 Vaccine (3 - 2023-2 5 season) 2024 04/14/2021, 03/11/2021 Influenza Vaccine 07/23/2025 11/07/2021, , 10/30/2019, Additional history exists Adult BMI Screening 03/02/2026 03/02/2025 Tobacco Screening 03/02/2026 03/02/2025 Medical Devices Not on file Procedures Procedure Name Priority Date/Time Associated Diagnosis Comments CORTISOL STAT 02/07/2025 10:05 AM EDT Primary aldosteronism (CMS-HCC) IR VENOGRAPHY VENOUS SAMPLE Routine 02/07/2025 10:00 AM EDT Primary aldosteronism (CMS-HCC) GENERIC SEND OUT LAB USE ONLY Routine 02/07/2025 10:00 AM EDT CORTISOL STAT 02/07/2025 9:55 AM EDT Primary aldosteronism (CMS-HCC) GENERIC SEND OUT LAB USE ONLY Routine 02/07/2025 9:50 AM EDT CORTISOL STAT 02/07/2025 9:45 AM EDT Primary aldosteronism (CMS-HCC) GENERIC SEND OUT LAB USE ONLY Routine 02/07/2025 9:40 AM EDT CORTISOL STAT 02/07/2025 9:35 AM EDT Primary aldosteronism (CMS-HCC) GENERIC SEND OUT LAB USE ONLY Routine 02/07/2025 9:30 AM EDT CORTISOL Routine 02/07/2025 9:25 AM EDT Primary aldosteronism (CMS-HCC) GENERIC SEND OUT LAB USE ONLY Routine 02/07/2025 9:20 AM EDT CORTISOL STAT 02/07/2025 9:15 AM EDT Primary aldosteronism (CMS-HCC) GENERIC SEND OUT LAB USE ONLY Routine 02/07/2025 9:10 AM EDT from Last 3 Months Results * Cortisol (02/07/2025 10:05 AM EDT) Only the most recent of6 resultswithin the time period is included. Cortisol, Plasma 5.2 ug/dL 02/07/2025 1:21 PM EDT [facility] Comment: Due to the diurnal variation of cortisol levels in normal subjects, all cortisol measurements should be referenced to the time of day of sample collection. AM Cortisol Age>=6 6.7-22.4 ug/dL PM Cortisol Age>=6 <10 ug/dL PLASMA 02/07/2025 10:0 5 AM EDT 02/07/2025 11:47 AM EDT us Feng Cloud MD LAB BLOOD ORDERABLES Final Resul t [facility] [address] [place] [address] * IR venography venous sample (02/07/2025 10:00 [...] was achieved using a micropuncture set. A [employer] wire was advanced into the IVC and a 5 Greenlandic vascular sheath was placed. Selective catheterization of [...] was achieved using a micropuncture set. A [employer] wire wasadvanced into the IVC and a 5 Greenlandic vascular sheath was placed. Selectivecatheterization of the right adrenal vein was performed using [facility] catheterand samples obtained. There was another questionable [...] on 02/07/2025 10:05 PM Feng Cloud MD [facility] IR ORDERABLES Final Result * Generic Send Out Lab Use Only (02/07/2025 10:00 AM EDT) Only the most recent of6 resultswithin the time period is included. Test name AIVC INFERIOR VENA CAVA 02/07/2025 12:04 PM EDT [employer] Comment:Corrected on 02/07 A T 1204: Previously reported as INFERIOR VENA CAVA Test result SEE COMMENTS 02/10/2025 12:12 AM 02/10/2025 1:12 AM EDT [employer] Comment: NOTE Test Result Flag Unit RefValue Aldosterone, IVC <4.0 ng/dL Not applicable ADDITIONAL INFORMATION This test was developed and its performance characteristics determined by [facility] in a manner consistent with CLIA requirements. This test has not been cleared or approved by the U.S. Food and Drug Administration. Test Performed by: [facility] [address] [place] [address] Radiosonde Operator: Shawanda Jimenez Ph.D.; CLIA# [id number] MISCELLANEOUS 02/07/2025 10: 00 AM EDT 02/07/2025 12:03 PM EDT Feng Cloud MD LAB ORDERABLES Edited Result - Final [facility] from Last 3 Months Insurance [address] [place] [address] [facility] MEDICAID Care Teams Depot Manager Relationship Specialty Start Date End Date Carlito Murillo MD PCP - General Family Medicine 06/06/19
--- OUTSIDE RECORDS SUMMARY | 2025-05-09 15:22 | XMS_ITS | Encounter Summary ---
Author Organization [employer] Address [id number] [address] [place] [address] Care Team Providers Care Home Care Rn Name Role Phone Carlito Murillo MD Primary Care Provider [phone] Reason for Referral * Diagnostic Imaging (Routine) - Closed Specialty Diagnoses / Procedures Referred By Contac t Referred To Contact Radiology Diagnoses Pain Procedures CT angiogram chest [facility] [address] [place] [phone] Phone: tel: fax: Referral ID Status Reason Start Date Expiration Date Visits Re quested Visits Authorized [id number] Closed 07/20/2024 07/20/2025 1 1 * Diagnostic Imaging (Routine) - Pending Review Specialty Diagnoses / Procedures Referred By Contac t Referred To Contact Radiology Diagnoses Pain Procedures NON [facility] WHOLE BODY [facility] [place] [address] Phone: tel: fax: Referral ID Status Reason Start Date Expiration Date V isits Requested Visits Authorized [id number] Pending Review 07/20/2024 07/20/2025 1 1 Encounter Details Date Type Department Care Team (Late st Contact Info) Description 07/20/2024 Orders Only [facility] [address] [place] [phone] Transcribe, Orders Support User Pain (Primary Dx) Social History Tobacco Use Types [...] EDT Office Visit [facility] [address] [facility] [place] [phone] Afsaneh Jacome, HOME HEALTH AIDE-POCKETED SPRING MACHINE OPERATOR [address] [place], [place] [phone] documented as of this encounter Results * NON [facility] WHOLE BODY (2024 4:45 PM EDT) us Scanning Provider External IMG PET ORDERABLES Fi nal Result * CT angiogram chest (04/21/2024 9:20 PM EDT) us Scanning Provider External IMG CT ORDERABLES Fin al Result documented in this encounter Visit Diagnoses Diagnosis Pain- Primary Generalized pain documented in this encounter Care Teams Home Care Rn Relationship Specialty Start Date End Date Carlito Murillo MD PCP - General Family Medicine 06/06/19 documented as of this encounter
--- OUTSIDE RECORDS SUMMARY | 2025-05-09 15:22 | XMS_ITS | Encounter Summary ---
Author Organization [facility] Address [id number] [address] [place] [address] Care Team Providers Care Nurse College Name Role Phone Carlito Murillo MD Primary Care Provider [phone] Reason for Referral * Diagnostic Imaging (Routine) - Closed Specialty Diagnoses / Procedures Referred By Contac t Referred To Contact Radiology Diagnoses Pain Procedures MRA head with and without contrast External, Scanning Provider Referral ID Status Reason Start Date Expiration Date Visits Re quested Visits Authorized [id number] Closed 11/10/2021 11/10/2022 1 1 * Diagnostic Imaging (Routine) - Closed Specialty Diagnoses / Procedures Referred By Contac t Referred To Contact Radiology Diagnoses Pain Procedures MR brain without contrast External, Scanning Provider Referral ID Status Reason Start Date Expiration Date Visits Re quested Visits Authorized [id number] Closed 11/10/2021 11/10/2022 1 1 Encounter Details Date Type Department Care Team ([facility] Contact Info) Description 11/10/2021 Orders Only [facility] [address] [place] [phone] Transcribe, Orders Support User Pain (Primary Dx) Social History Tobacco Use Types Packs/Day Years Used Date Smoking Tobacco: Every Day Cigarettes 1 40 Smokeless Tobacco: Never Alcohol Use Standard Drinks/Week Comments Yes 2 (1 standard drink = 0.6 oz [...] EDT Office Visit [facility] [address] [place] [phone] Afsaneh Jacome, OVEN BUILDER-BUSINESS MANAGER [employer] [address] [place] [address] documented as of this encounter Results * MRA head with and without contrast (11/06/2021 11:40 AM EST) us Scanning Provider External IMG MRI ORDERABLES Fi nal Result * MR brain without contrast (11/06/2021 11:35 AM EST) us Scanning Provider External IMG MRI ORDERABLES Fi nal Result documented in this encounter Visit Diagnoses Diagnosis Pain- Primary Generalized pain documented in this encounter Care Teams Nurse College Relationship Specialty Start Date End Date Carlito Murillo MD PCP - General Family Medicine 06/06/19 documented as of this encounter
--- OUTSIDE RECORDS SUMMARY | 2025-05-09 15:22 | XMS_ITS | Patient Health Record ---
Author Organization [facility] in [place] Address [address] [place] [address] Care Team Providers Care [employer] Vocational Educator Name Role Phone Amadou Moran Primary Care Provider [phone] Omar Mares Unavailable [phone] KENDRA MORAN Unavailable [phone] Marlon Beal Unavailable [phone] Kaelyn Escamilla Unavailable [phone] Allergies Allergen (clinical drug ingredient) Drug/Non Drug Allergy documented on EMR Reaction Allergy Type Onset Date Status amlodipine Norvasc visual changes Drug Allergy A ctive alprazolam Xanax mental status changes Drug Allergy Active lisinopril Lisinopril Unknown Drug Allergy Activ e Results Component Value Reference Range Notes ANCA (ANTINEUTROPHIL CYTOPLA SMIC AB SCREEN) Reviewed date:06/29/2024 07:02:01 AM Interpretation: Performing Lab: Notes/Report: JOSAFAT (ANGIOTENSIN CONVERTING ENZYME) Reviewed date:06/29/2024 07:02:15 AM Interpretation: Performing Lab: Notes/Report: ASPERGILLUS ABS (FLAVUS,FUMI GATUS, NIGER) QUAL Reviewed date:06/29/2024 07:02:29 AM Interpretation: Performing Lab: Notes/Report: BLASTOMYCIS MYCELIAL AB, BLO OD Reviewed date:07/03/2024 08:06:18 AM Interpretation: Performing Lab: Notes/Report: SED RATE (ESR) Reviewed date:06/29/2024 07:03:28 AM Interpretation: Performing Lab: Notes/Report: GLOMERULAR BASEMENT MEMBRANE (GBM) Reviewed date:06/29/2024 07:03:39 AM Interpretation: Performing Lab: Notes/Report: HISTOPLASMA MYCELIAL AB, BLO OD Reviewed date:07/03/2024 08:06:27 AM Interpretation: Performing Lab: Notes/Report: RHEUMATOID FACTOR Reviewed date:06/29/2024 07:04:09 AM Interpretation: Performing Lab: Notes/Report: TB GOLD PLUS, QUANTIFERON Reviewed date:07/03/2024 08:08:42 AM Interpretation: Performing Lab: Notes/Report: HISTOPLASMA ANTIGEN, URINE Reviewed date:06/29/2024 07:08:22 AM Interpretation: Performing Lab: Notes/Report: CCP (CYCLIC CITRULL PEPTIDE) Reviewed date:06/29/2024 07:09:09 AM Interpretation: Performing Lab: Notes/Report: TY SCREEN with REFLEX Reviewed date:06/29/2024 07:08:34 AM Interpretation: Performing Lab: Notes/Report: ANTISCLERODERMA AB Reviewed date:06/29/2024 07:08:47 AM Interpretation: Performing Lab: Notes/Report: MAGNESIUM Reviewed date:03/30/2025 01:10:37 PM Interpretation: Performing Lab: Notes/Report: [facility] , Magnesium 1.2 1.8-2.4 mg/dL Performing Lab: see note ML - [facility] PROF CHEM 8 (BAS METB) Reviewed date:04/09/2025 12:47:28 PM Interpretation: Performing Lab: Notes/Report: [facility] , Sodium 142 136-145 mmol/L Potassium 3.5 3.5-5.1 mmol/L Chloride 108 98-107 mmol/L Carbon Dioxide 28.0 21.0-32.0 mmol/L Anion Gap 9.5 Glucose 108 74-106 mg/dL Blood Urea Nitrogen 17.0 7.0-18.0 mg/dL Creatinine 1.11 0.55-1.02 mg/dL Estimated GFR ( Candace >60 >=60 mL/min/1.73m 2 Estimated GFR (Non- Susi 50 >=60 mL/min/1.73m 2 BUN Creatinine Ratio 15.3 Calcium 8.8 8.5-10.1 mg/dL Performing Lab: see note ML - [facility] LB NM gunnar perf SPECT rest str Reviewed date:05/21/2024 03:37:34 PM Interpretation: Performing Lab: Notes/Report: Source Facility: [facility]-[address] [place] [address] [address] [place] [address] Nuclear Medicine Report Signed Patient: ABY MADRIGAL MR#: [id number] : 1965 Acct:[id number] Age/Sex: 58 / F ADM Date: 05/19/24 Loc: NM Attending Dr: Kendra Moran M.D. Ordering Physician: Kendra Moran M.D. Date of Service: 05/19/24 Procedure(s): NM gunnar perf SPECT rest str Accession Number(s): [id number] cc: Kendra Moran M.D. Patient Name: ABY MADRIGAL MR#: [id number] : 1965 Exam Date: 05/19/2024 Ordering Doctor: DR Kendra Moran . RADIOLOGY REPORT PROCEDURE: NM GUNNAR PERF SPECT REST STR COMPARISON: None. INDICATIONS: HYPERTENSION TECHNIQUE: Exam Description: Stress/Rest one day protocol gated SPECT Rest Imagin.4 mCi Tc-99m Cardiolite IV on 05/19/2024 Stress Imaging 30.2 mCi Tc-99m Cardiolite IV on 05/19/2024 Exercise Protocol: Jeferson Heart Rate (bpm): Rest: 51 Max: 137 PMHR: 85 Blood Pressure: Rest: 180/78 Max: 190/80 Exercise Time: Minutes: 5 Seconds: 07 Stage Reached: Stage: 2 Mets 7.0 Symptoms: Rest and peak stress ECG findings were pending and the exercise portion of the study was pending per attending physician Dr. WALDRON . For more details please see separate cardiac stress test report. FINDINGS: QUALITY OF STUDY: Good. PERFUSION DEFECT: None. LOCATION: N/A SIZE: N/A. SEVERITY: N/A. TYPE: N/A. WALL MOTION: Normal. LV SIZE: Normal. 86 mL. TID / TCD: None; 0.9 LVEF: Normal. Calculated EF 72%. SUMMARY: Myocardial perfusion imaging study is NORMAL. CONCLUSION: 1. Normal myocardial profusion scan 2. Pending exercise test results Dictated by: Adelia Lezama MD on 05/19/2024 at 13:25 Approved by: Adelia Lezama MD on 05/19/2024 at 13:26 Dictated By: Adelia Lezama M.D. Signed By: 05/19/24 1328 DD/ 1327 TD/TT: [employer] Cast[employer] Machine Operator: [place] [address] Nuclear Medicine Report Signed Patient: ABY MADRIGAL MR#: [id number] : 1965 Acct:[id number] Age/Sex: 58 / F ADM Date: 05/19/24 Loc: NM Attending Dr: Zhanna Moran M.D. Ordering Physician: Kendra Moran M.D. Date of Service: 05/19/24 Procedure(s): NM gunnar perf SPECT rest str Accession Number(s): [id number] cc: Kendra Moran M.D. Patient Name: ABY MADRIGAL MR#: [id number] : 1965 Exam Date: 05/19/2024 Ordering Doctor: DR Kendra Moran . RADIOLOGY REPORT PROCEDURE: NM GUNNAR PE RF SPECT REST STR COMPARISON: None. INDICATIONS: HYPERTENSION TECHNIQUE: Exam Description: Stress/Rest one day protocol gated SPECT Rest Imagin.4 m Ci Tc-99m Cardiolite IV on 05/19/2024 Stress Imaging 30.2 mCi Tc-99m Cardiolite IV on 05/19/2024 Exercise Protocol: Jeferson Heart Rate (bpm): Re st: 51 Max: 137 PMHR: 85 Blood Pressure: Rest : 180/78 Max: 190/80 Exercise Time: Minut es: 5 Seconds: 07 Stage Reached: Stage : 2 Mets 7.0 Symptoms: Rest and peak stress ECG findings were pending and the exercise portion of the study was pending pe r attending physician [facility] . For more details please see separate cardiac stress test report. FINDINGS: QUALITY OF STUDY: Good. PERFUSION DEFECT: None. LOCATION: N/A SIZE: N/A. SEVERITY: N/A. TYPE: N/A. WALL MOTION: Normal. LV SIZE: Normal. 86 mL. TID / TCD: None; 0.9 LVEF: Normal. Calcu lated EF 72%. SUMMARY: Myocardial perfusion imaging study is NORMAL. CONCLUSION: 1. Normal myocardial profusion scan 2. Pending exercise test results Dictated by: Adelia hercules MD on 05/19/2024 at 13:25 Approved by: Adelia hercules MD on 05/19/2024 at 13:26 Dictated By: Shin Lezama M.D. Signed By: 05/19/24 1328 DD/ 1327 TD/TT: [employer] Machine Operator: PROF Romano(COMP METB) Reviewed date:06/13/2024 08:52:50 PM Interpretation: Performing Lab: Notes/Report: [facility] , Sodium 142 136-145 mmol/L Potassium 3.8 3.5-5.1 mmol/L Chloride 104 98-107 mmol/L Carbon Dioxide 27.8 21.0-32.0 mmol/L Anion Gap 14.0 Glucose 130 74-106 mg/dL Blood Urea Nitrogen 15.0 7.0-18.0 mg/dL Creatinine 1.05 0.55-1.02 mg/dL Estimated GFR ( Candace >60 >=60 Estimated GFR (Non- Susi 54 >=60 BUN Creatinine Ratio 14.3 Calcium 8.9 8.5-10.1 mg/dL Bilirubin Total 0.4 0.2-1.0 mg/dL Aspartate Amino Transferase 27 15-37 U/L Alanine Aminotransferase 60 14-59 U/L Alkaline Phosphatase 86 46-116 U/L Total Protein 7.1 6.4-8.2 g/dL Albumin Level 3.5 3.4-5.0 g/dL Globulin 3.6 Albumin Globulin Ratio 1.0 Performing Lab: see note ML - [facility] LB Prothrombin Time INR Reviewed date:06/13/2024 08:52:50 PM Interpretation: Performing Lab: Notes/Report: [facility] , Prothrombin Time 9.6 9.0-11.6 sec INR <0.93 DESIRED INR: 2.0-3.0 CONDITIONS NOT LISTED BELOW 2.5-3.5 FOR PROSTHETIC HEART VALVE REPLACEMENT 2.5-3.5 RECURRENT THROMBOSIS Performing Lab: see note ML - [facility] LB Troponin I High Sensitivity Reviewed date:06/13/2024 08:52:50 PM Interpretation: Performing Lab: Notes/Report: [facility] , Troponin I High Sensitivity 7.8 4.0-51.3 pg/mL CUT-OFF POINTS HAVE BEEN ESTABLISHED BASED ON THE FOURTH UNIVERSAL DEFINITION OF MYOCARDIAL INFARCTION. THE UPPER REFERENCE LIMIT (URL) OF TROPONIN, DEFINED THE 99TH PERCENTILE OF cTnI DISTRIBUTION IN A REFERENCE POPULATION, HAS BEEN CONFIRMED THE DECISION THRESHOLD FOR VA DIAGNOSIS. 99TH PERCENTILE = 51.4 PG/ML NOTE: HIGH-SENSITIVITY TROPONIN ASSAY IS NOT INTENDED TO BE USED IN ISOLATION BUT SHOULD BE INTERPRETED IN CONJUNCTION WITH OTHER DIAGNOSTIC AND CLINICAL INFORMATION. Performing Lab: see note ML - [facility] LB PET skull to mid thigh Reviewed date:06/21/2024 08:32:10 PM Interpretation: Performing Lab: Notes/Report: Source Facility: [place] [address] PET Report Signed Patient: ABY MADRIGAL MR#: [id number] : 1965 Acct:[id number] Age/Sex: 59 / F ADM Date: 06/19/24 Loc: PETCT Attending Dr: Kendra Moran M.D. Ordering Physician: Kendra Moran M.D. Date of Service: 06/19/24 Procedure(s): PET skull to mid thigh Accession Number(s): [id number] cc: Kendra Moran M.D. [place] [address] Patient Name: ABY MADRIGAL MRN: [id number] date: 1965 Sex: F Assigned Patient Location: PETCT Current Patient Location: PETCT Accession/Order Number: [id number] Exam Date: 2024 16:48 Report Date: 06/21/2024 19:30 At the request of: KENDRA MORAN Procedure: PET skull to mid thigh PET/CT: HISTORY: Pulmonary nodule. COMPARISON: CT chest 04/21/2024. CT abdomen 09/04/2019. TECHNIQUE: The patient was injected with 14.4 mCi of F-18 fluorodeoxyglucose (FDG), and an emission scan was performed from the base of the skull to the mid thigh. Noncontrast CT was performed for attenuation correction and anatomic localization. The blood glucose level was 108 mg/dl. The uptake time was 52 minutes. FINDINGS: HEAD AND NECK: There is a physiologic distribution of activity, with no hypermetabolic foci. CHEST: The SUVmax of the mediastinum = 3.7 using the patient's body weight as the normalization method. Hypermetabolic right middle lobe pulmonary nodule, image 107, SUV max 3.0. No hypermetabolic mediastinal or hilar adenopathy. ABDOMEN AND PELVIS: Hypermetabolic left adrenal mass, image 144, SUV max 6.3 measuring 2.6 x 2.5 cm. This appears stable compared to the CT from 09/04/2019. There appear to be some macroscopic fat in the region which has increased compared to the previous studies and this is suggestive of a myelolipoma. MUSCULOSKELETAL SYSTEM: There is a physiologic distribution of activity within the bone marrow, with no hypermetabolic foci. ADDITIONAL CT FINDINGS: There is moderate atherosclerotic coronary artery calcification and there is diffuse atherosclerotic calcination of the aorta, iliac and femoral arteries. There are trace bilateral pleural effusions. Liver is enlarged at 19.5 cm in length and there is moderate to severe diffuse fatty infiltration. The patient is status post cholecystectomy. There is a punctate nonobstructing stone in the upper pole of the right kidney and there is an additional small stone in lower pole of the right kidney. The left kidney demonstrates moderate atrophy and scarring. There is diverticulosis in the descending colon with no acute diverticulitis. The patient is status post hysterectomy. PET/PET skull to mid thigh IMPRESSION: 1. Right middle pulmonary nodule appears mildly hypermetabolic. This is suspicious for malignancy. Consider tissue sampling. 2. No evidence of metastatic disease. 3. Hypermetabolic left adrenal mass which appears stable from previous studies including 09/04/2019. This appears to be consistent with a myelolipoma. 4. Additional CT findings as described above. Electronically authenticated by: JOSE NARANJO Date: 06/21/2024 19:30 Dictated By: Jose Naranjo M.D. Signed By: 06/21/241932 DD/ 29 TD/TT: [employer] Operator: The [address] [address] PET Report Signed Patient: ABY MADRIGAL MR#: [id number] : 1965 Acct:[id number] Age/Sex: 59 / F ADM Date: 06/19/24 Loc: PETCT Attending Dr: Zhanna Moran M.D. Ordering Physician: Kendra Moran M.D. Date of Service: 06/19/24 Procedure(s): PET sk ull to mid thigh Accession Number(s): [id number] cc: Kendra Moran M.D. [address] [address] Patient Name: ABY MADRIGAL MRN: [id number] date: 1965 Sex: F Assigned Patient Location: PETCT Current Patient Loca tion: PETCT Accession/Order Numb er: [id number] Exam Date: 2024 16:48 Report Date: 06/21/2024 19:30 At the request of: KENDRA MORAN Procedure: PET skull to mid thigh PET/CT: HISTORY: Pulmonary nodule. COMPARISON: CT chest 04/21/2024. CT abdomen 09/04/2019. TECHNIQUE: The patie nt was injected with 14.4 mCi of F-18 fluorodeoxyglucose (FDG), and an emissi on scan was performed from the base of the skull to the mid thigh. Noncontrast C T was performed for attenuation correction and anatomic localization. The bl ood glucose level was 108 mg/dl. The uptake time was 52 minutes. FINDINGS: HEAD AND NECK: There is a physiologic distribution of activity, with no hypermetabolic foci. CHEST: The SUVmax of the mediastinum = 3.7 using the patient's body weight as the normalization me thod. Hypermetabolic right middle lobe pulmonary nodule, image 107, SUV max 3 .0. No hypermetabolic mediastinal or hilar adenopathy. ABDOMEN AND PELVIS: Hypermetabolic left adrenal mass, image 144, SUV max 6.3 measuring 2.6 x 2.5 cm. This appears stable compared to the CT from 09/04/2019. There appear to be s ome macroscopic fat in the region which has increased compared to the prev ious studies and this is suggestive of a myelolipoma. MUSCULOSKELETAL SYST EM: There is a physiologic distribution of activity within the bone marrow, wit h no hypermetabolic foci. ADDITIONAL CT FINDIN GS: There is moderate atherosclerotic coronary artery calcification and th ere is diffuse atherosclerotic calcination of the aorta, iliac and femoral arteries. There are trace bilateral pleural effusions. Liver is enlarged at 19.5 cm in length and there is moderate to severe diffuse fatty infiltration. The pa tient is status post cholecystectomy. There is a punctate nonobstructing stone in the upper pole of the right kidney and there is an additional small sto ne in lower pole of the right kidney. The left kidney demonstrates moderat e atrophy and scarring. There is diverticulosis in the descending colon wit h no acute diverticulitis. The patient is status post hysterectomy. PET/PET skull to mid thigh IMPRESSION: 1. Right middle pulm onary nodule appears mildly hypermetabolic. This is suspicious for malignancy. Consider tissue sampling. 2. No evidence of metastatic disease. 3. Hypermetabolic le ft adrenal mass which appears stable from previous studies including 09/04/2019 . This appears to be consistent with a myelolipoma. 4. Additional CT fin dings as described above. Electronically authenticated by: JOSE NARANJO Date: 06/21/2024 19:30 Dictated By: Cristina Naranjo M.D. Signed By: 06/21/241932 DD/ 29 TD/TT: [employer] Operator: Erythrocyte Sedimentation Ra te Reviewed date:06/27/2024 05:44:29 PM Interpretation: Performing Lab: Notes/Report: [facility] , Erythrocyte Sedimentation Rate 91 <=30 mm/hr Performing Lab: see note ML - [facility] LB QuantiFERON-TB Gold Plus Reviewed date:06/29/2024 06:16:08 PM Interpretation: Performing Lab: Notes/Report: [facility] , QuantiFERON Incubation . Incubation performed. Reference Range: . QuantiFERON-TB Gold Plus Negative Negative No response to M tuberculosis antigens detected. Infection with M tuberculosis is unlikely, but high risk individuals should be considered for additional testing (ATS/IDSA/CDC Clinical Practice Guidelines, 2017). The reference range is an Antigen minus Nil result of <0.35 IU/mL. Chemiluminescence immunoassay methodology Performed at: [facility] [employer] [id number] Cabana Attendant: Gopi Romeo PhD, Phone: [phone] QuantiFERON Criteria Comment . QuantiFERON-TB Gold Plus is a qualitative indirect test for M tuberculosis infection (including disease) and is intended for use in conjunction with risk assessment, radiography, and other medical and diagnostic evaluations. The QuantiFERON-TB Gold Plus result is determined by subtracting the Nil value from either TB antigen (Ag) value. The Mitogen tube serves as a control for the test. QuantiFERON TB1 Ag Value 0.00 . IU/mL QuantiFERON TB2 Ag Value 0.00 . IU/mL QuantiFERON Nil Value 0.00 . IU/mL QuantiFERON Mitogen Value >10.00 . IU/mL Performing Lab: see note [facility] LB TY w/Reflex Reviewed date:06/29/2024 06:51:59 AM Interpretation: Performing Lab: Notes/Report: [facility] , TY Direct Negative Negative Performed at: [address] [id number] Cabana Attendant: Gopi Romeo PhD, Phone: [phone] Performing Lab: see note [facility] LB ANCA Profile Reviewed date:06/29/2024 06:52:02 AM Interpretation: Performing Lab: Notes/Report: [facility] , Anti-MPO Antibodies <0.2 0.0-0.9 units Anti-PR3 Antibodies <0.2 0.0-0.9 units Cytoplasmic (C-ANCA) <1:20 Neg:<1:20 titer Perinuclear (P-ANCA) <1:20 Neg:<1:20 titer The presence of positive fluorescence exhibiting P-ANCA or C-ANCA patterns alone is not specific for the diagnosis of Michele's Granulomatosis (WG) or microscopic polyangiitis. Decisions about treatment should not be based solely on ANCA IFA results. The International ANCA Group Consensus recommends follow up testing of positive sera with both IA- 3 and MPO-ANCA enzyme immunoassays. As many as 5% serum samples are positive only by EIA. Ref. AM J Clin Pathol 1999;111:507-513. Atypical pANCA <1:20 Neg:<1:20 titer The atypical pANCA pattern has been observed in a significant percentage of patients with ulcerative colitis, primary sclerosing cholangitis and autoimmune hepatitis. Performed at: [address] [id number] Cabana Attendant: Kelsey Ceron MD, Phone: [phone] Performed at: [address], [place] [id number] Cabana Attendant: Gopi Romeo PhD, Phone: [phone] Performing Lab: see note LC - [facility] LB Anti-GBM Antibodies Reviewed date:06/29/2024 06:51:56 AM Interpretation: Performing Lab: Notes/Report: [facility] , Anti-GBM Antibodies <0.2 0.0-0.9 units Performed at: [address] [id number] Cabana Attendant: Kelsey Ceron MD, Phone: [phone] Performing Lab: see note LC - [facility] LB BNP Reviewed date:06/29/2024 06:16:08 PM Interpretation: Performing Lab: Notes/Report: Comment use ER blood? [facility] , NT Pro B Type Natriuretic Pept 276.0 <=900.0 pg/mL Performing Lab: see note - [facility] LB CBC AUTO DIFF Reviewed date:06/29/2024 06:16:08 PM Interpretation: Performing Lab: Notes/Report: [facility] , White Blood Count 7.1 4.0-11.0 10 3/uL Red Blood Count 4.78 4.20-5.40 10 6/uL Hemoglobin 13.3 12.0-16.0 g/dL Hematocrit 40.3 36.0-48.0 % Mean Corpuscular Volume 84.3 81.0-99.0 fL Mean Corpuscular Hemoglobin 27.8 26.7-34.0 pg Mean Corpuscular HGB Conc 33.0 29.9-35.2 g/dL Red Cell Distribution Width 14.6 11.0-15.0 % Platelet Count 251 150-450 10 3/uL Mean Platelet Volume 10.3 9.5-13.5 fL Neutrophils Percent Auto 58.4 43.0-75.0 % Lymphocytes Percent Auto 30.5 20.5-60.0 % Monocytes Percent Auto 6.9 1.7-12.0 % Eosinophils Percent Auto 3.1 0.9-7.0 % Basophils Percent Auto 0.8 0.2-2.0 % Immature Granulocytes Pct Auto 0.3 0.0-0.5 % Neutrophils Absolute Auto 4.2 1.4-6.5 10 3/uL Lymphocytes Absolute Auto 2.2 1.2-3.8 10 3/uL Monocytes Absolute Auto 0.5 0.3-0.8 10 3/uL Eosinophils Absolute Auto 0.2 0.0-0.7 10 3/uL Basophils Absolute Auto 0.1 0.0-0.1 10 3/uL Immature Granulocytes Abs Auto 0.02 0.00-0.03 10 3/uL Performing Lab: see note ML - [facility] LB MAGNESIUM Reviewed date:06/29/2024 06:16:08 PM Interpretation: Performing Lab: Notes/Report: Comment if not done in er [facility] , Magnesium 1.7 1.8-2.4 mg/dL Performing Lab: see note - [facility] LB PROF 14(COMP METB) Reviewed date:06/29/2024 06:16:08 PM Interpretation: Performing Lab: Notes/Report: [facility] , Sodium 142 136-145 mmol/L Potassium 3.2 3.5-5.1 mmol/L Chloride 106 98-107 mmol/L Carbon Dioxide 28.4 21.0-32.0 mmol/L Anion Gap 10.8 Glucose 140 74-106 mg/dL Blood Urea Nitrogen 15.0 7.0-18.0 mg/dL Creatinine 1.04 0.55-1.02 mg/dL Estimated GFR ( Candace >60 >=60 Estimated GFR (Non- Susi 54 >=60 BUN Creatinine Ratio 14.4 Calcium 8.7 8.5-10.1 mg/dL Bilirubin Total 0.3 0.2-1.0 mg/dL Aspartate Amino Transferase 22 15-37 U/L Alanine Aminotransferase 60 14-59 U/L Alkaline Phosphatase 99 46-116 U/L Total Protein 6.7 6.4-8.2 g/dL Albumin Level 3.3 3.4-5.0 g/dL Globulin 3.4 Albumin Globulin Ratio 1.0 Performing Lab: see note ML - [facility] LB Troponin I High Sensitivity Reviewed date:06/29/2024 06:16:08 PM Interpretation: Performing Lab: Notes/Report: [facility] , Troponin I High Sensitivity 7.7 4.0-51.3 pg/mL CUT-OFF POINTS HAVE BEEN ESTABLISHED BASED ON THE FOURTH UNIVERSAL DEFINITION OF MYOCARDIAL INFARCTION. THE UPPER REFERENCE LIMIT (URL) OF TROPONIN, DEFINED THE 99TH PERCENTILE OF cTnI DISTRIBUTION IN A REFERENCE POPULATION, HAS BEEN CONFIRMED THE DECISION THRESHOLD FOR VA DIAGNOSIS. 99TH PERCENTILE = 51.4 PG/ML NOTE: HIGH-SENSITIVITY TROPONIN ASSAY IS NOT INTENDED TO BE USED IN ISOLATION BUT SHOULD BE INTERPRETED IN CONJUNCTION WITH OTHER DIAGNOSTIC AND CLINICAL INFORMATION. Performing Lab: see note ML - [facility] LB Troponin I High Sensitivity Reviewed date:06/29/2024 06:16:08 PM Interpretation: Performing Lab: Notes/Report: [facility] , Troponin I High Sensitivity 11.3 4.0-51.3 pg/mL CUT-OFF POINTS HAVE BEEN ESTABLISHED BASED ON THE FOURTH UNIVERSAL DEFINITION OF MYOCARDIAL INFARCTION. THE UPPER REFERENCE LIMIT (URL) OF TROPONIN, DEFINED THE 99TH PERCENTILE OF cTnI DISTRIBUTION IN A REFERENCE POPULATION, HAS BEEN CONFIRMED THE DECISION THRESHOLD FOR VA DIAGNOSIS. 99TH PERCENTILE = 51.4 PG/ML NOTE: HIGH-SENSITIVITY TROPONIN ASSAY IS NOT INTENDED TO BE USED IN ISOLATION BUT SHOULD BE INTERPRETED IN CONJUNCTION WITH OTHER DIAGNOSTIC AND CLINICAL INFORMATION. Performing Lab: see note ML - [facility] LB Troponin I High Sensitivity Reviewed date:07/02/2024 10:36:59 AM Interpretation: Performing Lab: Notes/Report: [facility] , Troponin I High Sensitivity 105.8 4.0-51.3 pg/mL RESULTS CALLED TO Samara GALLOWAY)@BY Erika Driscoll MLT at 1938 CUT-OFF POINTS HAVE BEEN ESTABLISHED BASED ON THE FOURTH UNIVERSAL DEFINITION OF MYOCARDIAL INFARCTION. THE UPPER REFERENCE LIMIT (URL) OF TROPONIN, DEFINED THE 99TH PERCENTILE OF cTnI DISTRIBUTION IN A REFERENCE POPULATION, HAS BEEN CONFIRMED THE DECISION THRESHOLD FOR VA DIAGNOSIS. 99TH PERCENTILE = 51.4 PG/ML NOTE: HIGH-SENSITIVITY TROPONIN ASSAY IS NOT INTENDED TO BE USED IN ISOLATION BUT SHOULD BE INTERPRETED IN CONJUNCTION WITH OTHER DIAGNOSTIC AND CLINICAL INFORMATION. Performing Lab: see note ML - [facility] LB D-DIMER Reviewed date:07/18/2024 08:49:46 PM Interpretation: Performing Lab: Notes/Report: [facility] , D Dimer 0.57 <=0.59 mg/L FEU Increases in D-Dimer concentration observed with thromboembolic events can be variable due to localization, size, and age of the thrombus. Therefore, a thromboembolic event cannot be diagnosed with certainty on the basis of the reference range. D-Dimers may also be elevated for a variety of disorders including advanced age, , coronary disease, cancer, liver disease, infection, inflammation, hematoma, DIC, trauma, post-surgery, diabetes, thrombolytic or anticoagulant therapy, stress, and generalized hospitalization. Performing Lab: see note - [facility] PROF CHEM 8 (ESE BAKER) Reviewed date:07/18/2024 08:49:46 PM Interpretation: Performing Lab: Notes/Report: [facility] , Sodium 143 136-145 mmol/L Potassium 3.1 3.5-5.1 mmol/L Chloride 104 98-107 mmol/L Carbon Dioxide 29.0 21.0-32.0 mmol/L Anion Gap 13.1 Glucose 109 74-106 mg/dL Blood Urea Nitrogen 15.0 7.0-18.0 mg/dL Creatinine 1.40 0.55-1.02 mg/dL Estimated GFR ( Candace 46 >=60 Estimated GFR (Non- Susi 38 >=60 BUN Creatinine Ratio 10.7 Calcium 9.0 8.5-10.1 mg/dL Performing Lab: see note - [facility] Troponin I High Sensitivity Reviewed date:07/18/2024 08:49:46 PM Interpretation: Performing Lab: Notes/Report: [facility] , Troponin I High Sensitivity 9.9 4.0-51.3 pg/mL CUT-OFF POINTS HAVE BEEN ESTABLISHED BASED ON THE FOURTH UNIVERSAL DEFINITION OF MYOCARDIAL INFARCTION. THE UPPER REFERENCE LIMIT (URL) OF TROPONIN, DEFINED THE 99TH PERCENTILE OF cTnI DISTRIBUTION IN A REFERENCE POPULATION, HAS BEEN CONFIRMED THE DECISION THRESHOLD FOR VA DIAGNOSIS. 99TH PERCENTILE = 51.4 PG/ML NOTE: HIGH-SENSITIVITY TROPONIN ASSAY IS NOT INTENDED TO BE USED IN ISOLATION BUT SHOULD BE INTERPRETED IN CONJUNCTION WITH OTHER DIAGNOSTIC AND CLINICAL INFORMATION. Performing Lab: see note ML - [facility] LAB TESTING Reviewed date:08/03/2024 09:44:19 PM Interpretation: Performing Lab: Notes/Report: [id number] Dexamethasone ([employer]) [facility] , Miscellaneous Test COMMENT . Test Ordered: [id number] Dexamethasone, Serum Dexamethasone, Serum 377 ng/dL ES Reference Range: . This test was developed and its performance characteristics determined by [facility]. It has not been cleared or approved by the Food and Drug Administration. Reference Range: Adults baseline: <30 8:00 AM following 1 mg dexamethasone previous evenin - 295 8:00 AM following 8 mg dexamethasone (4 x 2 mg doses) previous day: 1600 - 2850 Performed at: [facility] [address] [place] [id number] Cabana Attendant: Luigi Jackman MD, Phone: [phone] Performed at: [address] [id number] Cabana Attendant: Gopi Romeo PhD, Phone: [phone] Performing Lab: see note [facility] Cortisol Reviewed date:07/21/2024 10:43:54 AM Interpretation: Performing Lab: Notes/Report: [facility] , Cortisol 1.7 6.2-19.4 ug/dL Please Note: The reference interval and flagging for this test is for an AM collection. If this is a PM collection please use: Cortisol PM: 2.3-11.9 Performed at: [address] [id number] Cabana Attendant: Gopi Romeo PhD, Phone: [phone] Performing Lab: see note [facility] Renin Activity, Plasma Reviewed date:07/31/2024 07:53:46 PM Interpretation: Performing Lab: Notes/Report: [facility] , Renin Activity, Plasma <0.167 0.167-5.3 80 ng/mL/hr This test was developed and its performance characteristics determined by [facility]. It has not been cleared or approved by the Food and Drug Administration. Performed at: [address] [id number] Cabana Attendant: Kelsey Ceron MD, Phone: [phone] Performing Lab: see note [facility] PROF 14(COMP METB) Reviewed date:07/21/2024 10:43:54 AM Interpretation: Performing Lab: Notes/Report: [facility] , Sodium 143 136-145 mmol/L Potassium 3.0 3.5-5.1 mmol/L Chloride 106 98-107 mmol/L Carbon Dioxide 27.7 21.0-32.0 mmol/L Anion Gap 12.3 Glucose 129 74-106 mg/dL Blood Urea Nitrogen 11.0 7.0-18.0 mg/dL Creatinine 1.37 0.55-1.02 mg/dL Estimated GFR ( Candace 48 >=60 Estimated GFR (Non- Susi 39 >=60 BUN Creatinine Ratio 8.0 Calcium 8.8 8.5-10.1 mg/dL Bilirubin Total 0.3 0.2-1.0 mg/dL Aspartate Amino Transferase 31 15-37 U/L Alanine Aminotransferase 57 14-59 U/L Alkaline Phosphatase 80 46-116 U/L Total Protein 6.4 6.4-8.2 g/dL Albumin Level 3.1 3.4-5.0 g/dL Globulin 3.3 Albumin Globulin Ratio 0.9 Performing Lab: see note ML - [facility] LB PTT Reviewed date:07/24/2024 12:00:18 PM Interpretation: Performing Lab: Notes/Report: [facility] , Partial Thromboplastin Time 27.1 22.3-36.2 sec Performing Lab: see note ML - [facility] LB PROF CHEM 8 (BAS METB) Reviewed date:07/25/2024 08:57:52 PM Interpretation: Performing Lab: Notes/Report: [facility] , Sodium 146 136-145 mmol/L Potassium 3.3 3.5-5.1 mmol/L Chloride 109 98-107 mmol/L Carbon Dioxide 25.2 21.0-32.0 mmol/L Anion Gap 15.1 Glucose 108 74-106 mg/dL Blood Urea Nitrogen 13.0 7.0-18.0 mg/dL Creatinine 1.23 0.55-1.02 mg/dL Estimated GFR ( Candace 54 >=60 Estimated GFR (Non- Susi 45 >=60 BUN Creatinine Ratio 10.6 Calcium 9.1 8.5-10.1 mg/dL Performing Lab: see note ML - [facility] LB CBC AUTO DIFF Reviewed date:07/28/2024 04:17:33 PM Interpretation: Performing Lab: Notes/Report: [facility] , White Blood Count 9.8 4.0-11.0 10 3/uL Red Blood Count 4.74 4.20-5.40 10 6/uL Hemoglobin 12.9 12.0-16.0 g/dL Hematocrit 40.3 36.0-48.0 % Mean Corpuscular Volume 85.0 81.0-99.0 fL Mean Corpuscular Hemoglobin 27.2 26.7-34.0 pg Mean Corpuscular HGB Conc 32.0 29.9-35.2 g/dL Red Cell Distribution Width 14.3 11.0-15.0 % Platelet Count 277 150-450 10 3/uL Mean Platelet Volume 9.7 9.5-13.5 fL Performing Lab: see note ML - [facility] LB D-DIMER Reviewed date:07/28/2024 04:17:34 PM Interpretation: Performing Lab: Notes/Report: [facility] , D Dimer 0.36 <=0.59 mg/L FEU Increases in D-Dimer concentration observed with thromboembolic events can be variable due to localization, size, and age of the thrombus. Therefore, a thromboembolic event cannot be diagnosed with certainty on the basis of the reference range. D-Dimers may also be elevated for a variety of disorders including advanced age, , coronary disease, cancer, liver disease, infection, inflammation, hematoma, DIC, trauma, post-surgery, diabetes, thrombolytic or anticoagulant therapy, stress, and generalized hospitalization. Performing Lab: see note ML - [facility] LB LACTATE or LACTIC ACID Reviewed date:07/28/2024 04:17:34 PM Interpretation: Performing Lab: Notes/Report: [facility] , Lactate/Lactic Acid 2.4 0.4-2.0 mmol/L RESULT S CALLED TO JULIENNE DOBBS/MEGAN IN ER Performing Lab: see note [facility] LB PROF 14(COMP METB) Reviewed date:07/28/2024 04:17:34 PM Interpretation: Performing Lab: Notes/Report: [facility] , Sodium 136 136-145 mmol/L Potassium 3.2 3.5-5.1 mmol/L Chloride 100 98-107 mmol/L Carbon Dioxide 28.7 21.0-32.0 mmol/L Anion Gap 10.5 Glucose 140 74-106 mg/dL Blood Urea Nitrogen 19.0 7.0-18.0 mg/dL Creatinine 1.77 0.55-1.02 mg/dL Estimated GFR ( Candace 35 >=60 Estimated GFR (Non- Susi 29 >=60 BUN Creatinine Ratio 10.7 Calcium 9.2 8.5-10.1 mg/dL Bilirubin Total 0.5 0.2-1.0 mg/dL Aspartate Amino Transferase 35 15-37 U/L Alanine Aminotransferase 57 14-59 U/L Alkaline Phosphatase 87 46-116 U/L Total Protein 7.4 6.4-8.2 g/dL Albumin Level 3.7 3.4-5.0 g/dL Globulin 3.7 Albumin Globulin Ratio 1.0 Performing Lab: see note ML - [facility] LB Manual Differential Reviewed date:07/28/2024 04:17:34 PM Interpretation: Performing Lab: Notes/Report: [facility] , Segmented Neutrophils % Manual 75.0 43.0-75.0 Lymphocytes Percent Manual 11.0 20.5-60.0 % Monocytes Percent Manual 7.0 1.7-12.0 % Eosinophils Percent Manual 2.0 0.9-7.0 % Basophils Percent Manual 1.0 0.2-2.0 % Atypical Lymphocytes % Manual 4.0 Segmented Neut Absolute Manual 7.35 1.4-6.5 10 3/uL Lymphocytes Absolute Manual 1.07 1.20-3.80 10 3/uL Monocytes Absolute Manual 0.68 0.30-0 .80 10 3/uL Eosinophils Absolute Manual 0.19 0.00-0.70 10 3/uL Basophils Abs Manual 0.09 0.00-0.10 1 0 3/uL Atypical Lymphocytes Abs Man 0.39 Anisocytosis 1+ Microcytosis 1+ Performing Lab: see note ML - [facility] LB Troponin I High Sensitivity Reviewed date:07/28/2024 04:17:34 PM Interpretation: Performing Lab: Notes/Report: [facility] , Troponin I High Sensitivity 16.5 4.0-51.3 pg/mL CUT-OFF POINTS HAVE BEEN ESTABLISHED BASED ON THE FOURTH UNIVERSAL DEFINITION OF MYOCARDIAL INFARCTION. THE UPPER REFERENCE LIMIT (URL) OF TROPONIN, DEFINED THE 99TH PERCENTILE OF cTnI DISTRIBUTION IN A REFERENCE POPULATION, HAS BEEN CONFIRMED THE DECISION THRESHOLD FOR VA DIAGNOSIS. 99TH PERCENTILE = 51.4 PG/ML NOTE: HIGH-SENSITIVITY TROPONIN ASSAY IS NOT INTENDED TO BE USED IN ISOLATION BUT SHOULD BE INTERPRETED IN CONJUNCTION WITH OTHER DIAGNOSTIC AND CLINICAL INFORMATION. Performing Lab: see note ML - [facility] LB Troponin I High Sensitivity Reviewed date:07/31/2024 07:53:46 PM Interpretation: Performing Lab: Notes/Report: [facility] , Troponin I High Sensitivity 10.6 4.0-51.3 pg/mL CUT-OFF POINTS HAVE BEEN ESTABLISHED BASED ON THE FOURTH UNIVERSAL DEFINITION OF MYOCARDIAL INFARCTION. THE UPPER REFERENCE LIMIT (URL) OF TROPONIN, DEFINED THE 99TH PERCENTILE OF cTnI DISTRIBUTION IN A REFERENCE POPULATION, HAS BEEN CONFIRMED THE DECISION THRESHOLD FOR VA DIAGNOSIS. 99TH PERCENTILE = 51.4 PG/ML NOTE: HIGH-SENSITIVITY TROPONIN ASSAY IS NOT INTENDED TO BE USED IN ISOLATION BUT SHOULD BE INTERPRETED IN CONJUNCTION WITH OTHER DIAGNOSTIC AND CLINICAL INFORMATION. Performing Lab: see note ML - [facility] LB CBC AUTO DIFF Reviewed date:08/01/2024 10:45:13 PM Interpretation: Performing Lab: Notes/Report: [facility] , White Blood Count 6.6 4.0-11.0 10 3/uL Red Blood Count 4.04 4.20-5.40 10 6/uL Hemoglobin 11.1 12.0-16.0 g/dL Hematocrit 34.6 36.0-48.0 % Mean Corpuscular Volume 85.6 81.0-99.0 fL Mean Corpuscular Hemoglobin 27.5 26.7-34.0 pg Mean Corpuscular HGB Conc 32.1 29.9-35.2 g/dL Red Cell Distribution Width 14.6 11.0-15.0 % Platelet Count 210 150-450 10 3/uL Mean Platelet Volume 10.3 9.5-13.5 fL Neutrophils Percent Auto 60.9 43.0-75.0 % Lymphocytes Percent Auto 27.9 20.5-60.0 % Monocytes Percent Auto 8.6 1.7-12.0 % Eosinophils Percent Auto 1.7 0.9-7.0 % Basophils Percent Auto 0.6 0.2-2.0 % Immature Granulocytes Pct Auto 0.3 0.0-0.5 % Neutrophils Absolute Auto 4.0 1.4-6.5 10 3/uL Lymphocytes Absolute Auto 1.9 1.2-3.8 10 3/uL Monocytes Absolute Auto 0.6 0.3-0.8 10 3/uL Eosinophils Absolute Auto 0.1 0.0-0.7 10 3/uL Basophils Absolute Auto 0.0 0.0-0.1 10 3/uL Immature Granulocytes Abs Auto 0.02 0.00-0.03 10 3/uL Performing Lab: see note ML - [facility] LB MAGNESIUM Reviewed date:08/01/2024 10:45:13 PM Interpretation: Performing Lab: Notes/Report: [facility] , Magnesium 2.0 1.8-2.4 mg/dL Performing Lab: see note ML - [facility] LB PHOSPHORUS Reviewed date:08/01/2024 10:45:13 PM Interpretation: Performing Lab: Notes/Report: [facility] , Phosphorus 2.7 2.6-4.7 mg/dL Performing Lab: see note ML - [facility] LB PROF 14(COMP METB) Reviewed date:08/01/2024 10:45:13 PM Interpretation: Performing Lab: Notes/Report: [facility] , Sodium 139 136-145 mmol/L Potassium 3.4 3.5-5.1 mmol/L Chloride 104 98-107 mmol/L Carbon Dioxide 29.2 21.0-32.0 mmol/L Anion Gap 9.2 Glucose 94 74-106 mg/dL Blood Urea Nitrogen 18.0 7.0-18.0 mg/dL Creatinine 1.32 0.55-1.02 mg/dL Estimated GFR ( Candace 50 >=60 Estimated GFR (Non- Susi 41 >=60 BUN Creatinine Ratio 13.6 Calcium 8.4 8.5-10.1 mg/dL Bilirubin Total 0.5 0.2-1.0 mg/dL Aspartate Amino Transferase 33 15-37 U/L Alanine Aminotransferase 59 14-59 U/L Alkaline Phosphatase 73 46-116 U/L Total Protein 6.5 6.4-8.2 g/dL Albumin Level 3.2 3.4-5.0 g/dL Globulin 3.3 Albumin Globulin Ratio 1.0 Performing Lab: see note ML - [facility] LB Troponin I High Sensitivity Reviewed date:08/01/2024 10:45:13 PM Interpretation: Performing Lab: Notes/Report: [facility] , Troponin I High Sensitivity 14.3 4.0-51.3 pg/mL CUT-OFF POINTS HAVE BEEN ESTABLISHED BASED ON THE FOURTH UNIVERSAL DEFINITION OF MYOCARDIAL INFARCTION. THE UPPER REFERENCE LIMIT (URL) OF TROPONIN, DEFINED THE 99TH PERCENTILE OF cTnI DISTRIBUTION IN A REFERENCE POPULATION, HAS BEEN CONFIRMED THE DECISION THRESHOLD FOR VA DIAGNOSIS. 99TH PERCENTILE = 51.4 PG/ML NOTE: HIGH-SENSITIVITY TROPONIN ASSAY IS NOT INTENDED TO BE USED IN ISOLATION BUT SHOULD BE INTERPRETED IN CONJUNCTION WITH OTHER DIAGNOSTIC AND CLINICAL INFORMATION. Performing Lab: see note ML - [facility] LB ITP Reviewed date:09/07/2024 09:52:49 PM Interpretation: Performing Lab: Notes/Report: Source Facility: [facility]-[address] [place] [address] [place] [address] Cardiac Rehab Report Signed Patient: ABY MADRIGAL MR#: [id number] : 1965 Acct:[id number] Age/Sex: 59 / F ADM Date: 09/04/24 Loc: CR Attending Dr: GOMEZ SPENCE Ordering Physician: GOMEZ SPENCE Date of Service: 09/05/24 Procedure(s): ITP Accession Number(s): [id number] cc: [facility] Test Date: 2024-09-05 Pat Name: ABY MADRIGAL Department: Room: - Gender: Female Demographic Analyst: : 1965 Requested By: GOMEZ SPENCE M.D. Order Number: [id number] Milton MD: AGUILAR MAN Interpretive Statements Session Date: Electronically Signed On 09-05-2024 22:39:54 EDT by AGUILAR MAN Dictated By: Aguilar Man D.O. Signed By: 09/05/24223909/05/242239 DD/ 0953 TD/TT: [employer] Operator: [place] [address] Cardiac Rehab Report Signed Patient: ABY MADRIGAL MR#: [id number] : 1965 Acct:[id number] Age/Sex: 59 / F ADM Date: 09/04/24 Loc: CR Attending Dr: GOMEZ SPENCE Ordering Physician: GOMEZ SPENCE Date of Service: 09/05/24 Procedure(s): ITP Accession Number(s): [id number] cc: [facility] Test Date: 2024-09-05 Pat Name: ABY MADRIGAL Department: 48 Room: - Gender: Female Demographic Analyst: : 1965 Requ ested By: GOMEZ SPENCE M.D. Order Number: [id number] Milton MD: AGUILAR MAN Interpretive Statements Session Date: Electronically Devora d On 09-05-2024 22:39:54 EDT by AGUILAR MAN Dictated By: Aguilar Man D.O. Signed By: 09/05/24223909/05/242239 DD/ 2 TD/TT: [employer] Operator: CBC AUTO DIFF Reviewed date:09/17/2024 09:36:04 PM Interpretation: Performing Lab: Notes/Report: [facility] , White Blood Count 6.9 4.0-11.0 10 3/uL Red Blood Count 4.35 4.20-5.40 10 6/uL Hemoglobin 11.7 12.0-16.0 g/dL Hematocrit 36.9 36.0-48.0 % Mean Corpuscular Volume 84.8 81.0-99.0 fL Mean Corpuscular Hemoglobin 26.9 26.7-34.0 pg Mean Corpuscular HGB Conc 31.7 29.9-35.2 g/dL Red Cell Distribution Width 15.1 11.0-15.0 % Platelet Count 233 150-450 10 3/uL Mean Platelet Volume 10.0 9.5-13.5 fL Neutrophils Percent Auto 62.4 43.0-75.0 % Lymphocytes Percent Auto 23.5 20.5-60.0 % Monocytes Percent Auto 6.9 1.7-12.0 % Eosinophils Percent Auto 6.2 0.9-7.0 % Basophils Percent Auto 0.7 0.2-2.0 % Immature Granulocytes Pct Auto 0.3 0.0-0.5 % Neutrophils Absolute Auto 4.3 1.4-6.5 10 3/uL Lymphocytes Absolute Auto 1.6 1.2-3.8 10 3/uL Monocytes Absolute Auto 0.5 0.3-0.8 10 3/uL Eosinophils Absolute Auto 0.4 0.0-0.7 10 3/uL Basophils Absolute Auto 0.1 0.0-0.1 10 3/uL Immature Granulocytes Abs Auto 0.02 0.00-0.03 10 3/uL Performing Lab: see note ML - [facility] LB PROF CHEM 8 (BAS METB) Reviewed date:09/17/2024 09:36:04 PM Interpretation: Performing Lab: Notes/Report: [facility] , Sodium 144 136-145 mmol/L Potassium 3.0 3.5-5.1 mmol/L Chloride 109 98-107 mmol/L Carbon Dioxide 26.0 21.0-32.0 mmol/L Anion Gap 12.0 Glucose 155 74-106 mg/dL Blood Urea Nitrogen 14.0 7.0-18.0 mg/dL Creatinine 1.20 0.55-1.02 mg/dL Estimated GFR ( Candace 55 >=60 mL/min/1.73m 2 Estimated GFR (Non- Susi 46 >=60 mL/min/1.73m 2 BUN Creatinine Ratio 11.7 Calcium 9.4 8.5-10.1 mg/dL Performing Lab: see note ML - [facility] LB Troponin I High Sensitivity Reviewed date:09/17/2024 09:36:04 PM Interpretation: Performing Lab: Notes/Report: [facility] , Troponin I High Sensitivity 9.2 4.0-51.3 pg/mL CUT-OFF POINTS HAVE BEEN ESTABLISHED BASED ON THE FOURTH UNIVERSAL DEFINITION OF MYOCARDIAL INFARCTION. THE UPPER REFERENCE LIMIT (URL) OF TROPONIN, DEFINED THE 99TH PERCENTILE OF cTnI DISTRIBUTION IN A REFERENCE POPULATION, HAS BEEN CONFIRMED THE DECISION THRESHOLD FOR VA DIAGNOSIS. 99TH PERCENTILE = 51.4 PG/ML NOTE: HIGH-SENSITIVITY TROPONIN ASSAY IS NOT INTENDED TO BE USED IN ISOLATION BUT SHOULD BE INTERPRETED IN CONJUNCTION WITH OTHER DIAGNOSTIC AND CLINICAL INFORMATION. Performing Lab: see note ML - [facility] LB XR chest 1V Reviewed date:09/28/2024 08:19:49 PM Interpretation: Performing Lab: Notes/Report: Source Facility: [facility]-[address] [place] [address] [place] [address] XRay Report Signed Patient: ABY MADRIGAL MR#: [id number] : 1965 Acct:[id number] Age/Sex: 59 / F ADM Date: Loc: ER Attending Dr: Ordering Physician: Carla Skinner D.O. Date of Service: 09/28/24 Procedure(s): XR chest 1V Accession Number(s): [id number] cc: Kendra Moran M.D.; Carla Skinner D.O. The [address] [address] Patient Name: ABY MADRIGAL MRN: [id number] date: 1965 Sex: F Assigned Patient Location: ER Current Patient Location: ER Accession/Order Number: [id number] Exam Date: 09/28/2024 12:41 Report Date: 09/28/2024 13:05 At the request of: CARLA SKINNER Procedure: XR chest 1V EXAMINATION: XR chest 1V HISTORY: cp COMPARISON: XR chest 08/17/2024 FINDINGS: LUNGS: Trace amount of stranding within lateral left lung base. Right lung is clear. VASCULATURE: No increased pulmonary vasculature. PLEURA: No pneumothorax, effusion, or pleural thickening. CARDIAC: No cardiomegaly or cardiac silhouette abnormality. MEDIASTINUM: No visible mass or adenopathy. BONES: No fracture or visible bone lesion. OTHER: Negative. XR/XR chest 1V IMPRESSION: 1. Mild lingular infiltrates versus atelectasis; new since prior study. Electronically authenticated by: JOSE YOUNG Date: 09/28/2024 13:05 Dictated By: Jose Young M.D. Signed By: 09/28/24 1307 DD/ 1305 TD/TT: [employer] Operator: [place] [address] XRay Report Signed Patient: ABY MADRIGAL MR#: [id number] : 1965 Acct:[id number] Age/Sex: 59 / F ADM Date: Loc: ER Attending Dr: Ordering Physician: Carla Skinner D.O. Date of Service: 09/28/24 Procedure(s): XR chest 1V Accession Number(s): [id number] cc: Kendra Moran M.D. ; Carla Skinner D.O. The [place] [id number] Patient Name: ABY MADRIGAL MRN: [id number] date: 1965 Sex: F Assigned Patient Location: ER Current Patient Loca tion: ER Accession/Order Numb er: [id number] Exam Date: 12:41 Report Date: 09/28/2024 13:05 At the request of: CARLA SKINNER Procedure: XR chest 1V EXAMINATION: XR chest 1V HISTORY: cp COMPARISON: XR chest 08/17/2024 FINDINGS: LUNGS: Trace amount of stranding within lateral left lung base. Right lung is clear. VASCULATURE: No incr eased pulmonary vasculature. PLEURA: No pneumotho rax, effusion, or pleural thickening. CARDIAC: No cardiome louis or cardiac silhouette abnormality. MEDIASTINUM: No visi ble mass or adenopathy. BONES: No fracture o r visible bone lesion. OTHER: Negative. X R/XR chest 1V IMPRESSION: 1. Mild lingular infiltrates versus atelectasis; new since prior study. Electronically authenticated by: JOSE YOUNG Date: 09/28/2024 13:05 Dictated By: Jose Young M.D. Signed By: 09/28/24 1307 DD/ 1305 TD/TT: [employer] Operator: RT pulmonary function test Reviewed date:11/08/2024 04:14:57 PM Interpretation: Performing Lab: Notes/Report: Source Facility: [place] [address] [place] [address] Respiratory Report Signed Patient: ABY MADRIGAL MR#: [id number] : 1965 Acct:[id number] Age/Sex: 59 / F ADM Date: 11/03/24 Loc: CARD Attending Dr: AmayaStaff Physician Norton Ordering Physician: Francine Bee M.D. Date of Service: 11/03/24 Procedure(s): RT pulmonary function test Accession Number(s): [id number] cc: [facility] Test Date: 2024-11-03 Pat Name: ABY MADRIGAL Department: Room: - Gender: Female Demographic Analyst: Mary Peoples RRT : 1965 Requested By: [id number] Order Number: [id number] Reading MD: Marlon Beal Interpretive Statements Pulmonary function testing was completed according to ATS criteria. Findings were considered accurate and reproducible, with exception of DLCO which did not meet ATS standards. Both pre- and post-bronchodilator values utilized for spirometry. Spirometry (based on pre-bronchodilator values): -FEV1/FVC: Normal @ 80% -FEV1: Normal @ 86% -FEV1: Low normal @ 82% -There is no significant bronchodilator response. Lung volumes by plethysmography: -RV: Normal @ 84% -TLC: Normal @ 92% Diffusion capacity: -DLCO: Mild reduction @ 79% when corrected for Hb 12.1g/dL Flow-volume loop: -Mild restrictive pattern Impressions: -Normal spirometry and lung volumes with a very mild diffusion impairment. This pattern can be seen in, but not restricted to, cardiopulmonary vascular disorders, early interstitial lung disease, and early emphysema. Clinical correlation required. Electronically Signed On 11-08-2024 6:59:28 EST by Marlon Beal Dictated By: Marlon Beal D.O. Signed By: 11/08/24 0659 11/08/24 0659 DD/ 1255 TD/TT: [employer] Operator: [place] [address] Respiratory Report Signed Patient: ABY MADRIGAL MR#: [id number] : 1965 Acct:[id number] Age/Sex: 59 / F ADM Date: 11/03/24 Loc: CARD Attending Dr: Cedric Bee M.D. Ordering Physician: PhysicianNon-Staff Errol Date of Service: 11/03/24 Procedure(s): RT pulmonary function test Accession Number(s): [id number] cc: [facility] Test Date: 2024-11-03 Pat Name: ABY MADRIGAL Department: 48 Room: - Gender: Female Demographic Analyst: Maryjanene YarbroughDEANA lanza : 1965 Requ ested By: [id number] Order Number: [id number] [place] MD: Marlon Beal Interpretive Statements Pulmonary function testing was completed according to ATS criteria. Findings were considered accu rate and reproducible, with exception of DLCO which did not meet ATS standar ds. Both pre- and post-bronchodilator values utilized for spirometry. Spirometry (based on pre-bronchodilator values): -FEV1/FVC: Normal @ 80% -FEV1: Normal @ 86% -FEV1: Low normal @ 82% -There is no signifi cant bronchodilator response. Lung volumes by plethysmography: -RV: Normal @ 84% -TLC: Normal @ 92% Diffusion capacity: -DLCO: Mild reductio n @ 79% when corrected for Hb 12.1g/dL Flow-volume loop: -Mild restrictive pattern Impressions: -Normal spirometry a nd lung volumes with a very mild diffusion impairment. This pattern can be seen in, but not restricted to, cardiopulmonary vascular disorders, early interstitial lung disease, and early emphysema. Clinical correlation required. Electronically Devora d On 11-08-2024 6:59:28 EST by Marlon Beal Dictated By: Olga Beal D.O. Signed By: 11/08/24 0659 11/08/24 0659 DD/ 1255 TD/TT: [employer] Operator: JULIANN Reviewed date:11/08/2024 04:14:57 PM Interpretation: Performing Lab: Notes/Report: Source Facility: [place] [address] Cardiac Rehab Report Signed Patient: ABY MADRIGAL MR#: [id number] : 1965 Acct:[id number] Age/Sex: 59 / F ADM Date: 11/06/24 Loc: CR Attending Dr: GOMEZ SPENCE Ordering Physician: GOMEZ SPENCE Date of Service: 11/07/24 Procedure(s): ITP Accession Number(s): [id number] cc: [facility] Test Date: 2024-11-07 Pat Name: ABY MADRIGAL Department: Room: - Gender: Female Demographic Analyst: : 1965 Requested By: GOMEZ SPENCE M.D. Order Number: [id number] Milton MD: AGUILAR MAN Interpretive Statements Session Date: Electronically Signed On 11-07-2024 20:11:30 EST by AGUILAR MAN Dictated By: Aguilar Man D.O. Signed By: 11/07/24201011/07/242010 DD/ 0950 TD/TT: [employer] Operator: [place] [address] Cardiac Rehab Report Signed Patient: ABY MADRIGAL MR#: [id number] : 1965 Acct:[id number] Age/Sex: 59 / F ADM Date: 11/06/24 Loc: CR Attending Dr: GOMEZ SPENCE Ordering Physician: GOMEZ SPENCE Date of Service: 11/07/24 Procedure(s): ITP Accession Number(s): [id number] cc: [facility] Test Date: 2024-11-07 Pat Name: ABY MADRIGAL Department: 48 Room: - Gender: Female Demographic Analyst: : 1965 Requ ested By: GOMEZ SPENCE M.D. Order Number: [id number] Reading MD: AGUILAR MAN Interpretive Statements Session Date: Electronically Devora d On 11-07-2024 20:11:30 EST by AGUILAR MAN Dictated By: Aguilar Man D.O. Signed By: 11/07/24201011/07/242010 DD/ 0950 TD/TT: [employer] Operator: BNP Reviewed date:11/12/2024 02:05:43 PM Interpretation: Performing Lab: Notes/Report: [facility] , NT Pro B Type Natriuretic Pept 306.0 <=900.0 pg/mL Performing Lab: see note ML - [facility] LB Troponin I High Sensitivity Reviewed date:10/16/2024 08:40:23 PM Interpretation: Performing Lab: Notes/Report: The [facility] , Troponin I High Sensitivity 8.6 4.0-51.3 pg/mL CUT-OFF POINTS HAVE BEEN ESTABLISHED BASED ON THE FOURTH UNIVERSAL DEFINITION OF MYOCARDIAL INFARCTION. THE UPPER REFERENCE LIMIT (URL) OF TROPONIN, DEFINED THE 99TH PERCENTILE OF cTnI DISTRIBUTION IN A REFERENCE POPULATION, HAS BEEN CONFIRMED THE DECISION THRESHOLD FOR VA DIAGNOSIS. 99TH PERCENTILE = 51.4 PG/ML NOTE: HIGH-SENSITIVITY TROPONIN ASSAY IS NOT INTENDED TO BE USED IN ISOLATION BUT SHOULD BE INTERPRETED IN CONJUNCTION WITH OTHER DIAGNOSTIC AND CLINICAL INFORMATION. Performing Lab: see note - [facility] LB PROF 14(COMP METB) Reviewed date:10/16/2024 08:40:23 PM Interpretation: Performing Lab: Notes/Report: [facility] , Sodium 145 136-145 mmol/L Potassium 3.7 3.5-5.1 mmol/L Chloride 106 98-107 mmol/L Carbon Dioxide 25.3 21.0-32.0 mmol/L Anion Gap 17.4 Glucose 106 74-106 mg/dL Blood Urea Nitrogen 16.0 7.0-18.0 mg/dL Creatinine 1.17 0.55-1.02 mg/dL Estimated GFR ( Candace 57 >=60 mL/min/1.73m 2 Estimated GFR (Non- Susi 47 >=60 mL/min/1.73m 2 BUN Creatinine Ratio 13.7 Calcium 9.2 8.5-10.1 mg/dL Bilirubin Total 0.3 0.2-1.0 mg/dL Aspartate Amino Transferase 36 15-37 U/L Alanine Aminotransferase 50 14-59 U/L Alkaline Phosphatase 71 46-116 U/L Total Protein 6.7 6.4-8.2 g/dL Albumin Level 3.5 3.4-5.0 g/dL Globulin 3.2 Albumin Globulin Ratio 1.1 Performing Lab: see note ML - [facility] LB BNP Reviewed date:10/16/2024 08:40:23 PM Interpretation: Performing Lab: Notes/Report: [facility] , NT Pro B Type Natriuretic Pept 168.0 <=900.0 pg/mL Performing Lab: see note ML - [facility] LB CT head/brain wo con Reviewed date:09/28/2024 08:19:49 PM Interpretation: Performing Lab: Notes/Report: Source Facility: [facility]-[address] [place] [address] [place] [address] CT Scan Report Signed Patient: ABY MADRIGAL MR#: [id number] : 1965 Acct:[id number] Age/Sex: 59 / F ADM Date: 09/28/24 Loc: ER Attending Dr: Ordering Physician: Carla Skinner D.O. Date of Service: 09/28/24 Procedure(s): CT head/brain wo con Accession Number(s): [id number] cc: Kendra Moran M.D. [facility] [place] [id number] Patient Name: ABY MADRIGAL MRN: [id number] date: 1965 Sex: F Assigned Patient Location: ER Current Patient Location: ED.MAIN Accession/Order Number: [id number] Exam Date: 09/28/2024 12:41 Report Date: 09/28/2024 13:42 At the request of: CARLA SKINNER Procedure: CT head/brain wo con EXAM: CT head/brain wo con HISTORY: Headache, visual disturbance COMPARISON: CT head 04/22/2024. TECHNIQUE: Axial noncontrast CT imaging of the head was performed with coronal and sagittal reformats This CT exam was performed using one or more of the following dose reduction techniques: Automated exposure control, adjustment of the MA and/or kV according to patient size, or use of iterative reconstruction technique. FINDINGS: Calvarium/skull base: No evidence of acute fracture or destructive lesion. Paranasal sinuses: No air fluid levels. Brain: No acute intracranial hemorrhage. No acute large vascular territory infarct. Stable mild patchy hypoattenuation involving the supratentorial white matter which is relatively symmetric in appearance and most commonly relates to sequela of small vessel disease. No mass lesion or mass effect. No hydrocephalus. CT/CT head/brain wo con IMPRESSION: No acute large vascular territory infarct or acute intracranial hemorrhage. No substantial change in appearance of the brain compared to 04/22/2024. Electronically authenticated by: ARMIDA DAVIS Date: 09/28/2024 13:42 Dictated By: Armida Davis M.D. Signed By: 09/28/24 1345 DD/ 1342 TD/TT: [employer] Operator: [place] [address] CT Scan Report Signed Patient: ABY MADRIGAL MR#: [id number] : 1965 Acct:[id number] Age/Sex: 59 / F ADM Date: 09/28/24 Loc: ER Attending Dr: Ordering Physician: Carla Skinner D.O. Date of Service: 09/28/24 Procedure(s): CT head/brain wo con Accession Number(s): [id number] cc: Kendra Moran M.D. [place] [id number] Patient Name: ABY MADRIGAL MRN: [facility]:[id number] date: 1965 Sex: F Assigned Patient Location: ER Current Patient Loca tion: ED.MAIN Accession/Order Numb er: [id number] Exam Date: 12:41 Report Date: 09/28/2024 13:42 At the request of: CARLA SKINNER Procedure: CT head/b rain wo con EXAM: CT head/brain wo con HISTORY: Headache, v isual disturbance COMPARISON: CT head 04/22/2024. TECHNIQUE: Axial noncontrast CT imaging of the head was performed with coronal and sagittal reforma ts This CT exam was performed using one or more of the following dose reduc tion techniques: Automated exposure control, adjustment of the MA and/or kV according to patient size, or use of iterative reconstruction technique. FINDINGS: Calvarium/skull base : No evidence of acute fracture or destructive lesion. Paranasal sinuses: N o air fluid levels. Brain: No acute intracranial hemorrhage. No acute large vascular territory infarct. Stable mild patchy hypoattenuation involving the supratentorial white matter which is relatively symmetric in appearance and most commonly relates to sequela of small ves vu disease. No mass lesion or mass effect. No hydrocephalus. C T/CT head/brain wo con IMPRESSION: No acute large vascu lar territory infarct or acute intracranial hemorrhage. No substantial change i n appearance of the brain compared to 04/22/2024. Electronically authenticated by: ARMIDA DAVIS Date: 09/28/2024 13:42 Dictated By: Armida Davis M.D. Signed By: 09/28/24 1341 DD/ 1342 TD/TT: [employer] Operator: ECG 12 lead Reviewed date:09/30/2024 04:08:40 PM Interpretation: Performing Lab: Notes/Report: Source Facility: [place] [address] [place] [address] Electrocardiograph Report Signed Patient: ABY MADRIGAL MR#: [id number] : 1965 Acct:[id number] Age/Sex: 59 / F ADM Date: 09/28/24 Loc: ER Attending Dr: Ordering Physician: Carla Skinner D.O. Date of Service: 09/28/24 Procedure(s): ECG 12 lead Accession Number(s): [id number] cc: [facility] Test Date: 2024-09-28 Pat Name: ABY MADRIGAL Department: Room: - Gender: Female Demographic Analyst: : 1965 Requested By: KENDRA MORAN Order Number: [id number] Reading MD: KENDRA MORAN Measurements Intervals [place] Rate: 72 P: 53 IA: 172 QRS: 22 QRSD: 90 T: 53 QT: 430 QTc: 454 Interpretive Statements 1100 Sinus rhythm 4068 Nonspecific Twave abnormality 8304 Long QTc interval 0102 ARTIFACT PRESENT 9150 abnormal ECG Compared to ECG 07/31/2024 17:07:27 ST (T wave) deviation no longer present Possible ischemia no longer present Electronically Signed On 09-29-2024 6:02:22 EST by KENDRA MORAN Dictated By: Kendra Moran M.D. Signed By: 09/29/24 0602 DD/ 1229 TD/TT: [employer] Machine Operator: [place] [address] Electrocardiograph Report Signed Patient: ABY MADRIGAL MR#: [id number] : 1965 Acct:[id number] Age/Sex: 59 / F ADM Date: 09/28/24 Loc: ER Attending Dr: Ordering Physician: Carla Skinner D.O. Date of Service: 09/28/24 Procedure(s): ECG 12 lead Accession Number(s): [id number] cc: [facility] Test Date: 2024-09-28 Pat Name: ABY MADRIGAL Department: 48 Room: - Gender: Female Demographic Analyst: : 1965 Requ ested By: KENDRA MORAN Order Number: [id number] Reading MD: KENDRA MORAN Measurements Intervals [place] Rate: 72 P: 53 IA: 172 QRS: 22 QRSD: 90 T: 53 QT: 430 QTc: 454 Interpretive Statements 1100 Sinus rhythm 4068 Nonspecific Twa ve abnormality 8304 Long QTc interval 0102 ARTIFACT PRESENT 9150 abnormal ECG Compared to ECG 07/31/2024 17:07:27 ST (T wave) deviatio n no longer present Possible ischemia no longer present Electronically Devora d On 09-29-2024 6:02:22 EST by KENDRA MORAN Dictated By: Do vinny Moran M.D. Signed By: 09/29/24 0602 DD/ 1229 TD/TT: [employer] Operator: Troponin I High Sensitivity Reviewed date:11/12/2024 02:05:43 PM Interpretation: Performing Lab: Notes/Report: [facility] , Troponin I High Sensitivity 60.1 4.0-51.3 pg/mL RESULTS CALLED TO SHANI SAAVEDRA RN AT 0901 CUT-OFF POINTS HAVE BEEN ESTABLISHED BASED ON THE FOURTH UNIVERSAL DEFINITION OF MYOCARDIAL INFARCTION. THE UPPER REFERENCE LIMIT (URL) OF TROPONIN, DEFINED THE 99TH PERCENTILE OF cTnI DISTRIBUTION IN A REFERENCE POPULATION, HAS BEEN CONFIRMED THE DECISION THRESHOLD FOR VA DIAGNOSIS. 99TH PERCENTILE = 51.4 PG/ML NOTE: HIGH-SENSITIVITY TROPONIN ASSAY IS NOT INTENDED TO BE USED IN ISOLATION BUT SHOULD BE INTERPRETED IN CONJUNCTION WITH OTHER DIAGNOSTIC AND CLINICAL INFORMATION. Performing Lab: see note ML - [facility] LB Troponin I High Sensitivity Reviewed date:11/12/2024 02:05:43 PM Interpretation: Performing Lab: Notes/Report: Comment do a total of 4 please [facility] , Troponin I High Sensitivity 52.3 4.0-51.3 pg/mL RESULTS CALLED TO SONYA MAYS RN AT 1134 CUT-OFF POINTS HAVE BEEN ESTABLISHED BASED ON THE FOURTH UNIVERSAL DEFINITION OF MYOCARDIAL INFARCTION. THE UPPER REFERENCE LIMIT (URL) OF TROPONIN, DEFINED THE 99TH PERCENTILE OF cTnI DISTRIBUTION IN A REFERENCE POPULATION, HAS BEEN CONFIRMED THE DECISION THRESHOLD FOR VA DIAGNOSIS. 99TH PERCENTILE = 51.4 PG/ML NOTE: HIGH-SENSITIVITY TROPONIN ASSAY IS NOT INTENDED TO BE USED IN ISOLATION BUT SHOULD BE INTERPRETED IN CONJUNCTION WITH OTHER DIAGNOSTIC AND CLINICAL INFORMATION. Performing Lab: see note ML - [facility] LB Troponin I High Sensitivity Reviewed date:11/12/2024 02:22:59 PM Interpretation: Performing Lab: Notes/Report: [facility] , Troponin I High Sensitivity 50.0 4.0-51.3 pg/mL CUT-OFF POINTS HAVE BEEN ESTABLISHED BASED ON THE FOURTH UNIVERSAL DEFINITION OF MYOCARDIAL INFARCTION. THE UPPER REFERENCE LIMIT (URL) OF TROPONIN, DEFINED THE 99TH PERCENTILE OF cTnI DISTRIBUTION IN A REFERENCE POPULATION, HAS BEEN CONFIRMED THE DECISION THRESHOLD FOR VA DIAGNOSIS. 99TH PERCENTILE = 51.4 PG/ML NOTE: HIGH-SENSITIVITY TROPONIN ASSAY IS NOT INTENDED TO BE USED IN ISOLATION BUT SHOULD BE INTERPRETED IN CONJUNCTION WITH OTHER DIAGNOSTIC AND CLINICAL INFORMATION. Performing Lab: see note ML - [facility] LB SARS-CoV-2 Ag* Reviewed date:09/28/2024 08:19:49 PM Interpretation: Performing Lab: Notes/Report: [facility] , SARS-CoV-2 Ag NEGATIVE NEGATIVE This test has not been FDA cleared or approved, but has been authorized by the FDA under an Emergency Use Authorization (EUA) for use by authorized laboratories certified under CLIA that meet the requirements to perform moderate or high complexity testing. This test has been authorized only for the detection of proteins from SARS-CoV-2, not for any other viruses or pathogens. The emergency use of this test is authorized for the duration of the declaration that circumstances exist justifying the authorization of emergency use of in vitro diagnostic tests for detection and/or diagnosis of Covid-19 under section 564(b)(1) of the Act, 21 U.S.C. 360bbb-3(b)(1), unless the declaration is terminated or authorization is revoked sooner. Performing Lab: see note ML - [facility] LB Troponin I High Sensitivity Reviewed date:09/28/2024 08:19:49 PM Interpretation: Performing Lab: Notes/Report: [facility] , Troponin I High Sensitivity 9.7 4.0-51.3 pg/mL CUT-OFF POINTS HAVE BEEN ESTABLISHED BASED ON THE FOURTH UNIVERSAL DEFINITION OF MYOCARDIAL INFARCTION. THE UPPER REFERENCE LIMIT (URL) OF TROPONIN, DEFINED THE 99TH PERCENTILE OF cTnI DISTRIBUTION IN A REFERENCE POPULATION, HAS BEEN CONFIRMED THE DECISION THRESHOLD FOR VA DIAGNOSIS. 99TH PERCENTILE = 51.4 PG/ML NOTE: HIGH-SENSITIVITY TROPONIN ASSAY IS NOT INTENDED TO BE USED IN ISOLATION BUT SHOULD BE INTERPRETED IN CONJUNCTION WITH OTHER DIAGNOSTIC AND CLINICAL INFORMATION. Performing Lab: see note ML - [facility] LB UA (CLEAN or CATCH) TRAUMA SURGEON or M ICRO IF IND. Reviewed date:09/28/2024 08:19:49 PM Interpretation: Performing Lab: Notes/Report: [facility] , Color Urine YELLOW YELLOW Clarity Urine CLEAR CLEAR Specific [place] Urine 1.010 1.005-1.025 pH Urine 6.0 5.0-9.0 Protein Urine NEGATIVE NEG/TRACE mg/dL Glucose Urine UA >=1000 NEGATIVE mg/dL Bilirubin Urine NEGATIVE NEGATIVE Ketones Urine NEGATIVE NEGATIVE mg/dL Blood Urine NEGATIVE NEGATIVE Nitrite Urine NEGATIVE NEGATIVE Urobilinogen Urine 0.2 0.2-1.0 EU/dL Leukocyte Esterase Urine NEGATIVE NEGATIVE Urine Microscopic Indicated NO Performing Lab: see note ML - [facility] LB PROF 14(COMP METB) Reviewed date:09/28/2024 08:19:49 PM Interpretation: Performing Lab: Notes/Report: [facility] , Sodium 145 136-145 mmol/L Potassium 3.4 3.5-5.1 mmol/L Chloride 109 98-107 mmol/L Carbon Dioxide 27.0 21.0-32.0 mmol/L Anion Gap 12.4 Glucose 105 74-106 mg/dL Blood Urea Nitrogen 12.0 7.0-18.0 mg/dL Creatinine 1.11 0.55-1.02 mg/dL Estimated GFR ( Candace >60 >=60 mL/min/1.73m 2 Estimated GFR (Non- Susi 50 >=60 mL/min/1.73m 2 BUN Creatinine Ratio 10.8 Calcium 9.0 8.5-10.1 mg/dL Bilirubin Total 0.4 0.2-1.0 mg/dL Aspartate Amino Transferase 30 15-37 U/L Alanine Aminotransferase 43 14-59 U/L Alkaline Phosphatase 70 46-116 U/L Total Protein 6.6 6.4-8.2 g/dL Albumin Level 3.3 3.4-5.0 g/dL Globulin 3.3 Albumin Globulin Ratio 1.0 Performing Lab: see note ML - [facility] LB CBC AUTO DIFF Reviewed date:09/28/2024 08:19:49 PM Interpretation: Performing Lab: Notes/Report: [facility] , White Blood Count 6.6 4.0-11.0 10 3/uL Red Blood Count 4.39 4.20-5.40 10 6/uL Hemoglobin 11.8 12.0-16.0 g/dL Hematocrit 37.4 36.0-48.0 % Mean Corpuscular Volume 85.2 81.0-99.0 fL Mean Corpuscular Hemoglobin 26.9 26.7-34.0 pg Mean Corpuscular HGB Conc 31.6 29.9-35.2 g/dL Red Cell Distribution Width 15.3 11.0-15.0 % Platelet Count 235 150-450 10 3/uL Mean Platelet Volume 9.7 9.5-13.5 fL Neutrophils Percent Auto 65.0 43.0-75.0 % Lymphocytes Percent Auto 22.3 20.5-60.0 % Monocytes Percent Auto 7.8 1.7-12.0 % Eosinophils Percent Auto 3.8 0.9-7.0 % Basophils Percent Auto 0.9 0.2-2.0 % Immature Granulocytes Pct Auto 0.2 0.0-0.5 % Neutrophils Absolute Auto 4.3 1.4-6.5 10 3/uL Lymphocytes Absolute Auto 1.5 1.2-3.8 10 3/uL Monocytes Absolute Auto 0.5 0.3-0.8 10 3/uL Eosinophils Absolute Auto 0.3 0.0-0.7 10 3/uL Basophils Absolute Auto 0.1 0.0-0.1 10 3/uL Immature Granulocytes Abs Auto 0.01 0.00-0.03 10 3/uL Performing Lab: see note ML - [facility] LB SARS-CoV-2 Ag* Reviewed date:08/17/2024 06:37:37 PM Interpretation: Performing Lab: Notes/Report: [facility] , SARS-CoV-2 Ag NEGATIVE NEGATIVE This test has not been FDA cleared or approved, but has been authorized by the FDA under an Emergency Use Authorization (EUA) for use by authorized laboratories certified under CLIA that meet the requirements to perform moderate or high complexity testing. This test has been authorized only for the detection of proteins from SARS-CoV-2, not for any other viruses or pathogens. The emergency use of this test is authorized for the duration of the declaration that circumstances exist justifying the authorization of emergency use of in vitro diagnostic tests for detection and/or diagnosis of Covid-19 under section 564(b)(1) of the Act, 21 U.S.C. 360bbb-3(b)(1), unless the declaration is terminated or authorization is revoked sooner. Performing Lab: see note ML - [facility] LB INFLUENZA A AND B AG Reviewed date:08/17/2024 06:37:37 PM Interpretation: Performing Lab: Notes/Report: [facility] , Influenza Virus A Antigen Negative Negative for Flu A protein antigen. Infection due to Flu A cannot be ruled out. Flu A antigen in the sample may be below the detection limit of the test. Influenza Virus B Antigen Negative Negative for Flu B protein antigen. Infection due to Flu B cannot be ruled out. Flu B antigen in the sample may be below the detection limit of the test. Performing Lab: see note ML - [facility] LB ITP Reviewed date:08/10/2024 01:06:14 PM Interpretation: Performing Lab: Notes/Report: Source Facility: [facility]-[address] [place] [address] [place] [address] Cardiac Rehab Report Signed Patient: ABY MADRIGAL MR#: [id number] : 1965 Acct:[id number] Age/Sex: 59 / F ADM Date: 08/09/24 Loc: CR Attending Dr: GOMEZ SPENCE Ordering Physician: GOMEZ SPENCE Date of Service: 08/09/24 Procedure(s): ITP Accession Number(s): [id number] cc: [facility] Test Date: 2024-08-09 Pat Name: ABY MADRIGAL Department: Room: - Gender: Female Demographic Analyst: : 1965 Requested By: GOMEZ SPECNE M.D. Order Number: [id number] [place] MD: AGUILAR MAN Interpretive Statements Session Date: Electronically Signed On 08-09-2024 23:13:13 EDT by AGUILAR MAN Dictated By: Aguialr Man D.O. Signed By: 08/09/24231208/09/242312 DD/ 17 TD/TT: [employer] Operator: [place] [address] Cardiac Rehab Report Signed Patient: ABY MADRIGAL MR#: [id number] : 1965 Acct:[id number] Age/Sex: 59 / F ADM Date: 08/09/24 Loc: CR Attending Dr: GOMEZ SPENCE Ordering Physician: GOMEZ SPENCE Date of Service: 08/09/24 Procedure(s): ITP Accession Number(s): [id number] cc: [facility] Test Date: 2024-08-09 Pat Name: BAY MADRIGAL Department: 48 Room: - Gender: Female Demographic Analyst: : 1965 Requ ested By: GOMEZ SPENCE M.D. Order Number: [id number] Reading MD: AGUILAR MAN Interpretive Statements Session Date: Electronically Devora d On 08-09-2024 23:13:13 EDT by AGUILAR MAN Dictated By: Aguilar Man D.O. Signed By: 08/09/24231208/09/242312 DD/ 17 TD/TT: [employer] Operator: Troponin I High Sensitivity Reviewed date:08/01/2024 10:45:13 PM Interpretation: Performing Lab: Notes/Report: [facility] , Troponin I High Sensitivity 13.2 4.0-51.3 pg/mL CUT-OFF POINTS HAVE BEEN ESTABLISHED BASED ON THE FOURTH UNIVERSAL DEFINITION OF MYOCARDIAL INFARCTION. THE UPPER REFERENCE LIMIT (URL) OF TROPONIN, DEFINED THE 99TH PERCENTILE OF cTnI DISTRIBUTION IN A REFERENCE POPULATION, HAS BEEN CONFIRMED THE DECISION THRESHOLD FOR VA DIAGNOSIS. 99TH PERCENTILE = 51.4 PG/ML NOTE: HIGH-SENSITIVITY TROPONIN ASSAY IS NOT INTENDED TO BE USED IN ISOLATION BUT SHOULD BE INTERPRETED IN CONJUNCTION WITH OTHER DIAGNOSTIC AND CLINICAL INFORMATION. Performing Lab: see note ML - [facility] LB BNP Reviewed date:11/26/2024 08:40:04 PM Interpretation: Performing Lab: Notes/Report: [facility] , NT Pro B Type Natriuretic Pept 171.0 <=900.0 pg/mL Performing Lab: see note ML - [facility] LB CBC AUTO DIFF Reviewed date:11/26/2024 08:40:04 PM Interpretation: Performing Lab: Notes/Report: [facility] , White Blood Count 6.2 4.0-11.0 10 3/uL Red Blood Count 4.64 4.20-5.40 10 6/uL Hemoglobin 11.9 12.0-16.0 g/dL Hematocrit 38.3 36.0-48.0 % Mean Corpuscular Volume 82.5 81.0-99.0 fL Mean Corpuscular Hemoglobin 25.6 26.7-34.0 pg Mean Corpuscular HGB Conc 31.1 29.9-35.2 g/dL Red Cell Distribution Width 15.8 11.0-15.0 % Platelet Count 189 150-450 10 3/uL Mean Platelet Volume 9.7 9.5-13.5 fL Neutrophils Percent Auto 68.2 43.0-75.0 % Lymphocytes Percent Auto 21.1 20.5-60.0 % Monocytes Percent Auto 6.6 1.7-12.0 % Eosinophils Percent Auto 3.2 0.9-7.0 % Basophils Percent Auto 0.6 0.2-2.0 % Immature Granulocytes Pct Auto 0.3 0.0-0.5 % Neutrophils Absolute Auto 4.2 1.4-6.5 10 3/uL Lymphocytes Absolute Auto 1.3 1.2-3.8 10 3/uL Monocytes Absolute Auto 0.4 0.3-0.8 10 3/uL Eosinophils Absolute Auto 0.2 0.0-0.7 10 3/uL Basophils Absolute Auto 0.0 0.0-0.1 10 3/uL Immature Granulocytes Abs Auto 0.02 0.00-0.03 10 3/uL Performing Lab: see note ML - [facility] LB MAGNESIUM Reviewed date:11/26/2024 08:40:04 PM Interpretation: Performing Lab: Notes/Report: [facility] , Magnesium 2.1 1.8-2.4 mg/dL Performing Lab: see note ML - [facility] LB PROF CHEM 8 (BAS METB) Reviewed date:11/26/2024 08:40:04 PM Interpretation: Performing Lab: Notes/Report: [facility] , Sodium 142 136-145 mmol/L Potassium 3.7 3.5-5.1 mmol/L Chloride 106 98-107 mmol/L Carbon Dioxide 24.0 21.0-32.0 mmol/L Anion Gap 15.7 Glucose 112 74-106 mg/dL Blood Urea Nitrogen 15.0 7.0-18.0 mg/dL Creatinine 1.04 0.55-1.02 mg/dL Estimated GFR ( Candace >60 >=60 mL/min/1.73m 2 Estimated GFR (Non- Susi 54 >=60 mL/min/1.73m 2 BUN Creatinine Ratio 14.4 Calcium 8.6 8.5-10.1 mg/dL Performing Lab: see note - [facility] LB Troponin I High Sensitivity Reviewed date:11/26/2024 08:40:04 PM Interpretation: Performing Lab: Notes/Report: [facility] , Troponin I High Sensitivity 6.2 4.0-51.3 pg/mL CUT-OFF POINTS HAVE BEEN ESTABLISHED BASED ON THE FOURTH UNIVERSAL DEFINITION OF MYOCARDIAL INFARCTION. THE UPPER REFERENCE LIMIT (URL) OF TROPONIN, DEFINED THE 99TH PERCENTILE OF cTnI DISTRIBUTION IN A REFERENCE POPULATION, HAS BEEN CONFIRMED THE DECISION THRESHOLD FOR VA DIAGNOSIS. 99TH PERCENTILE = 51.4 PG/ML NOTE: HIGH-SENSITIVITY TROPONIN ASSAY IS NOT INTENDED TO BE USED IN ISOLATION BUT SHOULD BE INTERPRETED IN CONJUNCTION WITH OTHER DIAGNOSTIC AND CLINICAL INFORMATION. Performing Lab: see note - [facility] LB ECG 12 lead Reviewed date:11/27/2024 08:32:57 PM Interpretation: Performing Lab: Notes/Report: Source Facility: [facility]-[address] [place] [address] [place] [address] Electrocardiograph Report Signed Patient: ABY MADRIGAL MR#: [id number] : 1965 Acct:[id number] Age/Sex: 59 / F ADM Date: 11/25/24 Loc: ER Attending Dr: Ordering Physician: Donald Hoskins D.O. Date of Service: 11/25/24 Procedure(s): ECG 12 lead Accession Number(s): [id number] cc: [facility] Test Date: 2024-11-25 Pat Name: ABY MADRIGAL Department: Room: - Gender: Female Demographic Analyst: : 1965 Requested By: KENDRA MORAN Order Number: [id number] Reading MD: AGUILAR MAN Measurements Intervals [place] Rate: 73 P: 46 IA: 206 QRS: -2 QRSD: 90 T: 120 QT: 396 QTc: 421 Interpretive Statements 1100 Sinus rhythm 3114 Cannot rule out anterior myocardial infarction, age undetermined 4564 Twave abnormality, possible lateral ischemia 9150 abnormal ECG Compared to ECG 11/15/2024 21:58:33 Myocardial infarct finding now present Possible ischemia now present Electronically Signed On 11-27-2024 20:24:14 EST by AGUILAR MAN Dictated By: Aguilar Man D.O. Signed By: 11/27/242023 DD/ 1015 TD/TT: [employer] Machine Operator: [place] [address] Electrocardiograph Report Signed Patient: ABY MADRIGAL MR#: [id number] : 1965 Acct:[id number] Age/Sex: 59 / F ADM Date: 11/25/24 Loc: ER Attending Dr: Ordering Physician: Donald Hoskins D.O. Date of Service: 11/25/24 Procedure(s): ECG 12 lead Accession Number(s): [id number] cc: [facility] Test Date: 2024-11-25 Pat Name: ABY MADRIGAL Department: 48 Room: - Gender: Female Demographic Analyst: : 1965 Requ ested By: KENDRA MORAN Order Number: [id number] Reading MD: AGUILAR MAN Measurements Intervals [place] Rate: 73 P: 46 IA: 206 QRS: -2 QRSD: 90 T: 120 QT: 396 QTc: 421 Interpretive Statements 1100 Sinus rhythm 3114 Cannot rule out anterior myocardial infarction, age undetermined 4564 Twave abnormali ty, possible lateral ischemia 9150 abnormal ECG Compared to ECG 11/15/2024 21:58:33 Myocardial infarct finding now present Possible ischemia no w present Electronically Devora d On 11-27-2024 20:24:14 EST by AGUILAR MAN Dictated By: Aguilar Man D.O. Signed By: 11/27/242023 DD/ 1015 TD/TT: [employer] Machine Operator: XR chest 1V Reviewed date:11/26/2024 08:40:04 PM Interpretation: Performing Lab: Notes/Report: Source Facility: [place] [address] XRay Report Signed Patient: ABY MADRIGAL MR#: [id number] : 1965 Acct:[id number] Age/Sex: 59 / F ADM Date: 11/25/24 Loc: ER Attending Dr: Ordering Physician: Donald Hoskins D.O. Date of Service: 11/25/24 Procedure(s): XR chest 1V Accession Number(s): [id number] cc: Donald Hoskins D.O.; Kendra Moran M.D. [place] [address] Patient Name: ABY MADRIGAL MRN: [facility]:[id number] date: 1965 Sex: F Assigned Patient Location: ER Current Patient Location: ER Accession/Order Number: [id number] Exam Date: 11/25/2024 10:52 Report Date: 11/25/2024 11:27 At the request of: DONALD HOSKINS Procedure: XR chest 1V EXAM: XR chest 1V HISTORY: shortness of breath COMPARISON: Portable chest radiograph dated 11/15/2024. TECHNIQUE: AP erect portable chest radiograph performed. FINDINGS: The trachea is midline. Stable mild prominence of the cardiac silhouette. Stable mild atheromatous calcification at the aortic arch. Slightly more prominent mild to moderate elevation of the right hemidiaphragm. There is no consolidation, pleural effusion or pulmonary vascular congestion. There is no pneumothorax. The osseous structures are unremarkable. XR/XR chest 1V IMPRESSION: There is no acute cardiopulmonary process. Electronically authenticated by: EMMA EMERSON Date: 11/25/2024 11:27 Dictated By: Emma Emerson M.D. Signed By: 11/25/24 1130 DD/ 1127 TD/TT: [employer] Operator: [place] [address] XRay Report Signed Patient: ABY MADRIGAL MR#: [id number] : 1965 Acct:[id number] Age/Sex: 59 / F ADM Date: 11/25/24 Loc: ER Attending Dr: Ordering Physician: Donald Hoskins D.O. Date of Service: 11/25/24 Procedure(s): XR chest 1V Accession Number(s): [id number] cc: Donald Hoskins D.O.; Kendra Moran M.D. [facility] [place] [address] Patient Name: ABY MADRIGAL MRN: [id number] date: 1965 Sex: F Assigned Patient Location: ER Current Patient Loca tion: ER Accession/Order Numb er: [id number] Exam Date: 11/25/2024 10:52 Report Date: 11/25/2024 11:27 At the request of: DONALD HOSKINS Procedure: XR chest 1V EXAM: XR chest 1V HISTORY: shortness o f breath COMPARISON: Portable chest radiograph dated 11/15/2024. TECHNIQUE: AP erect portable chest radiograph performed. FINDINGS: The trachea is midli ne. Stable mild prominence of the cardiac silhouette. Stable mild atheroma tous calcification at the aortic arch. Slightly more prominent mild to moderate elevation of the right hemidiaphragm. There is no consolidation, pleur al effusion or pulmonary vascular congestion. There is no pneumothorax. The os seous structures are unremarkable. X R/XR chest 1V IMPRESSION: There is no acute cardiopulmonary process. Electronically authenticated by: EMMA EMERSON Date: 11/25/2024 11:27 Dictated By: Meka Emerson M.D. Signed By: 11/25/24 1130 DD/ 112 TD/TT: [employer] Operator: JULIANN Reviewed date:12/07/2024 01:55:15 PM Interpretation: Performing Lab: Notes/Report: Source Facility: [facility] [address] [place] [address] Cardiac Rehab Report Signed Patient: ABY MADRIGAL MR#: [id number] : 1965 Acct:[id number] Age/Sex: 59 / F ADM Date: 12/06/24 Loc: CR Attending Dr: GOMEZ SPENCE Ordering Physician: Aguilar Man D.O. Date of Service: 12/06/24 Procedure(s): ITP Accession Number(s): [id number] cc: [facility] Test Date: 2024-12-06 Pat Name: ABY MADRIGAL Department: Room: - Gender: Female Demographic Analyst: : 1965 Requested By: AGUILAR MAN Order Number: [id number] Milton MD: AGUILAR MAN Interpretive Statements Session Date: Electronically Signed On 12-06-2024 20:54:07 EST by AGUILAR MAN Dictated By: Aguilar Man D.O. Signed By: 12/06/242053 DD/ TD/TT: [employer] Operator: [place] [address] Cardiac Rehab Report Signed Patient: ABY MADRIGAL MR#: [id number] : 1965 Acct:[id number] Age/Sex: 59 / F ADM Date: 12/06/24 Loc: CR Attending Dr: GOMEZ SPENCE Ordering Physician: Aguilar Man D.O. Date of Service: 12/06/24 Procedure(s): ITP Accession Number(s): [id number] cc: [facility] Test Date: 2024-12-06 Pat Name: ABY MADRIGAL Department: 48 Room: - Gender: Female Demographic Analyst: : 1965 Requ ested By: AGUILAR MAN Order Number: [id number] Milton MD: AGUILAR MAN Interpretive Statements Session Date: Electronically Devora d On 12-06-2024 20:54:07 EST by AGUILAR MAN Dictated By: Aguilar Man D.O. Signed By: 12/06/242053 DD/ TD/TT: [employer] Operator: JULIANN Reviewed date:01/06/2025 02:27:02 PM Interpretation: Performing Lab: Notes/Report: Source Facility: [place] [address] Cardiac Rehab Report Signed Patient: BAY MADRIGAL MR#: [id number] : 1965 Acct:[id number] Age/Sex: 59 / F ADM Date: 01/05/25 Loc: CR Attending Dr: GOMEZ SPENCE Ordering Physician: GOMEZ SPENCE Date of Service: 01/05/25 Procedure(s): ITP Accession Number(s): [id number] cc: [facility] Test Date: 2025-01-05 Pat Name: ABY MADRIGAL Department: Room: - Gender: Female Demographic Analyst: : 1965 Requested By: GOMEZ SPENCE M.D. Order Number: [id number] Milton MD: AGUILAR MAN Interpretive Statements Session Date: Electronically Signed On 01-06-2025 8:46:05 EST by AGUILAR MAN Dictated By: Aguilar Man D.O. Signed By: 01/06/25 0846 01/06/25 0846 DD/ 1003 TD/TT: [employer] Operator: [place] [address] Cardiac Rehab Report Signed Patient: ABY MADRIGAL MR#: [id number] : 1965 Acct:[id number] Age/Sex: 59 / F ADM Date: 01/05/25 Loc: CR Attending Dr: GOMEZ SPENCE Ordering Physician: GOMEZ SPENCE Date of Service: 01/05/25 Procedure(s): ITP Accession Number(s): [id number] cc: [facility] Test Date: 2025-01-05 Pat Name: ABY MADRIGAL Department: 48 Room: - Gender: Female Demographic Analyst: : 1965 Requ ested By: GOMEZ SPENCE M.D. Order Number: [id number] Reading MD: AGUILAR MAN Interpretive Statements Session Date: Electronically Devora d On 01-06-2025 8:46:05 EST by AGUILAR MAN Dictated By: Aguilar Man D.O. Signed By: 01/06/2546 01/06/2546 DD/ 02 TD/TT: [employer] Operator: BNP Reviewed date:01/31/2025 06:41:07 PM Interpretation: Performing Lab: Notes/Report: [facility] , NT Pro B Type Natriuretic Pept 196.0 <=900.0 pg/mL Performing Lab: see note ML - [facility] LB CBC AUTO DIFF Reviewed date:01/31/2025 06:41:07 PM Interpretation: Performing Lab: Notes/Report: [facility] , White Blood Count 6.5 4.0-11.0 10 3/uL Red Blood Count 4.58 4.20-5.40 10 6/uL Hemoglobin 11.9 12.0-16.0 g/dL Hematocrit 37.8 36.0-48.0 % Mean Corpuscular Volume 82.5 81.0-99.0 fL Mean Corpuscular Hemoglobin 26.0 26.7-34.0 pg Mean Corpuscular HGB Conc 31.5 29.9-35.2 g/dL Red Cell Distribution Width 15.6 11.0-15.0 % Platelet Count 211 150-450 10 3/uL Mean Platelet Volume 9.9 9.5-13.5 fL Neutrophils Percent Auto 52.6 43.0-75.0 % Lymphocytes Percent Auto 37.2 20.5-60.0 % Monocytes Percent Auto 6.6 1.7-12.0 % Eosinophils Percent Auto 2.6 0.9-7.0 % Basophils Percent Auto 0.8 0.2-2.0 % Immature Granulocytes Pct Auto 0.2 0.0-0.5 % Neutrophils Absolute Auto 3.4 1.4-6.5 10 3/uL Lymphocytes Absolute Auto 2.4 1.2-3.8 10 3/uL Monocytes Absolute Auto 0.4 0.3-0.8 10 3/uL Eosinophils Absolute Auto 0.2 0.0-0.7 10 3/uL Basophils Absolute Auto 0.1 0.0-0.1 10 3/uL Immature Granulocytes Abs Auto 0.01 0.00-0.03 10 3/uL Performing Lab: see note ML - [facility] LB LIPASE Reviewed date:01/31/2025 06:41:07 PM Interpretation: Performing Lab: Notes/Report: [facility] , Lipase 72.0 16.0-77.0 U/L Performing Lab: see note ML - [facility] LB PROF 14(COMP METB) Reviewed date:01/31/2025 06:41:08 PM Interpretation: Performing Lab: Notes/Report: [facility] , Sodium 142 136-145 mmol/L Potassium 3.5 3.5-5.1 mmol/L Chloride 107 98-107 mmol/L Carbon Dioxide 24.6 21.0-32.0 mmol/L Anion Gap 13.9 Glucose 114 74-106 mg/dL Blood Urea Nitrogen 29.0 7.0-18.0 mg/dL Creatinine 1.52 0.55-1.02 mg/dL Estimated GFR ( Candace 42 >=60 mL/min/1.73m 2 Estimated GFR (Non- Susi 35 >=60 mL/min/1.73m 2 BUN Creatinine Ratio 19.1 Calcium 9.2 8.5-10.1 mg/dL Bilirubin Total 0.3 0.2-1.0 mg/dL Aspartate Amino Transferase 25 15-37 U/L Alanine Aminotransferase 44 14-59 U/L Alkaline Phosphatase 61 46-116 U/L Total Protein 6.9 6.4-8.2 g/dL Albumin Level 3.5 3.4-5.0 g/dL Globulin 3.4 Albumin Globulin Ratio 1.0 Performing Lab: see note ML - [facility] LB Troponin I High Sensitivity Reviewed date:01/31/2025 06:41:08 PM Interpretation: Performing Lab: Notes/Report: [facility] , Troponin I High Sensitivity 9.3 4.0-51.3 pg/mL CUT-OFF POINTS HAVE BEEN ESTABLISHED BASED ON THE FOURTH UNIVERSAL DEFINITION OF MYOCARDIAL INFARCTION. THE UPPER REFERENCE LIMIT (URL) OF TROPONIN, DEFINED THE 99TH PERCENTILE OF cTnI DISTRIBUTION IN A REFERENCE POPULATION, HAS BEEN CONFIRMED THE DECISION THRESHOLD FOR VA DIAGNOSIS. 99TH PERCENTILE = 51.4 PG/ML NOTE: HIGH-SENSITIVITY TROPONIN ASSAY IS NOT INTENDED TO BE USED IN ISOLATION BUT SHOULD BE INTERPRETED IN CONJUNCTION WITH OTHER DIAGNOSTIC AND CLINICAL INFORMATION. Performing Lab: see note ML - [facility] LB ECG 12 lead Reviewed date:01/31/2025 06:41:08 PM Interpretation: Performing Lab: Notes/Report: Source Facility: [facility]-[address] [place] [address] [place] [address] Electrocardiograph Report Signed Patient: ABY MADRIGAL MR#: [id number] : 1965 Acct:[id number] Age/Sex: 59 / F ADM Date: 01/31/25 Loc: ER Attending Dr: Ordering Physician: Kyung Jones D.O. Date of Service: 01/31/25 Procedure(s): ECG 12 lead Accession Number(s): [id number] cc: [facility] Test Date: 2025-01-31 Pat Name: ABY MADRIGAL Department: Room: - Gender: Female Demographic Analyst: : 1965 Requested By: [id number] Order Number: [id number] Reading MD: GOMEZ SPENCE M.D. Measurements Intervals [place] Rate: 69 P: 63 IA: 178 QRS: 47 QRSD: 90 T: 150 QT: 382 QTc: 402 Interpretive Statements 1100 Sinus rhythm [address] depression 4564 Twave abnormality, possible lateral ischemia 9150 abnormal ECG Compared to ECG 11/25/2024 10:15:08 No significant changes Electronically Signed On 01-31-2025 9:30:00 EDT by GOMEZ SPENCE M.D. Dictated By: GOMEZ SPENCE Signed By: 01/31/25 0930 DD/ 0027 TD/TT: [employer] Operator: [place] [address] Electrocardiograph Report Signed Patient: ABY MADRIGAL MR#: [id number] : 1965 Acct:[id number] Age/Sex: 59 / F ADM Date: 01/31/25 Loc: ER Attending Dr: Ordering Physician: Kyung Jones D.O. Date of Service: 01/31/25 Procedure(s): ECG 12 lead Accession Number(s): [id number] cc: [facility] Test Date: 2025-01-31 Pat Name: ABY MADRIGAL Department: 48 Room: - Gender: Female Demographic Analyst: : 1965 Blanca rodriguez By: [id number] Order Number: [id number] Reading MD: GOMEZ SPENCE M.D. Measurements Intervals [place] Rate: 69 P: 63 IA: 178 QRS: 47 QRSD: 90 T: 150 QT: 382 QTc: 402 Interpretive Statements 1100 Sinus rhythm [address] depression 4564 Twave abnormali ty, possible lateral ischemia 9150 abnormal ECG Compared to ECG 11/25/2024 10:15:08 No significant changes Electronically Devora d On 01-31-2025 9:30:00 EDT by GOMEZ SPENCE M.D. Dictated By: GOMEZ SPENCE Signed By: 01/31/25 0930 DD/ 0027 TD/TT: [employer] Operator: Troponin I High Sensitivity Reviewed date:01/31/2025 06:41:07 PM Interpretation: Performing Lab: Notes/Report: [facility] , Troponin I High Sensitivity 8.9 4.0-51.3 pg/mL CUT-OFF POINTS HAVE BEEN ESTABLISHED BASED ON THE FOURTH UNIVERSAL DEFINITION OF MYOCARDIAL INFARCTION. THE UPPER REFERENCE LIMIT (URL) OF TROPONIN, DEFINED THE 99TH PERCENTILE OF cTnI DISTRIBUTION IN A REFERENCE POPULATION, HAS BEEN CONFIRMED THE DECISION THRESHOLD FOR VA DIAGNOSIS. 99TH PERCENTILE = 51.4 PG/ML NOTE: HIGH-SENSITIVITY TROPONIN ASSAY IS NOT INTENDED TO BE USED IN ISOLATION BUT SHOULD BE INTERPRETED IN CONJUNCTION WITH OTHER DIAGNOSTIC AND CLINICAL INFORMATION. Performing Lab: see note ML - [facility] LB ITP Reviewed date:02/18/2025 04:19:26 PM Interpretation: Performing Lab: Notes/Report: Source Facility: [facility]-[address] [place] [address] [place] [address] Cardiac Rehab Report Signed Patient: ABY MADRIGAL MR#: [id number] : 1965 Acct:[id number] Age/Sex: 59 / F ADM Date: 02/14/25 Loc: CR Attending Dr: GOMEZ SPENCE Ordering Physician: GOMEZ SPENCE Date of Service: 02/05/25 Procedure(s): ITP Accession Number(s): [id number] cc: [facility] Test Date: 2025-02-05 Pat Name: ABY MADRIGAL Department: Room: - Gender: Female Demographic Analyst: : 1965 Requested By: GOMEZ SPENCE M.D. Order Number: [id number] Milton MD: AGUILAR MAN Interpretive Statements Session Date: Electronically Signed On 02-17-2025 14:29:26 EDT by AGUILAR MAN Dictated By: Aguilar Man D.O. Signed By: 02/17/25142802/17/251428 DD/ 33 TD/TT: [employer] Operator: [place] [address] Cardiac Rehab Report Signed Patient: ABY MADRIGAL MR#: [id number] : 1965 Acct:[id number] Age/Sex: 59 / F ADM Date: 02/14/25 Loc: CR Attending Dr: GOMEZ SPENCE Ordering Physician: GOMEZ SPENCE Date of Service: 02/05/25 Procedure(s): ITP Accession Number(s): [id number] cc: [facility] Test Date: 2025-02-05 Pat Name: ABY MADRIGAL Department: 48 Room: - Gender: Female Demographic Analyst: : 1965 Requ ested By: GOMEZ SPENCE M.D. Order Number: [id number] Milton MD: AGUILAR MAN Interpretive Statements Session Date: Electronically Devora d On 02-17-2025 14:29:26 EDT by AGUILAR MAN Dictated By: Aguilar Man D.O. Signed By: 02/17/25142802/17/251428 DD/ TD/TT: [employer] Operator: JULIANN Reviewed date:02/18/2025 04:19:26 PM Interpretation: Performing Lab: Notes/Report: Source Facility: [facility] [place] [address] Cardiac Rehab Report Signed Patient: ABY MADRIGAL MR#: [id number] : 1965 Acct:[id number] Age/Sex: 59 / F ADM Date: 02/14/25 Loc: CR Attending Dr: GOMEZ SPENCE Ordering Physician: Aguilar Man D.O. Date of Service: 02/14/25 Procedure(s): ITP Accession Number(s): [id number] cc: [facility] Test Date: 2025-02-14 Pat Name: ABY MADRIGAL Department: Room: - Gender: Female Demographic Analyst: : 1965 Requested By: AGUILAR MAN Order Number: [id number] Milton MD: AGUILAR MAN Interpretive Statements Session Date: Electronically Signed On 02-17-2025 14:29:51 EDT by AGUILAR MAN Dictated By: Aguilar Man D.O. Signed By: 02/17/25 1430 02/17/25 1430 DD/ 1420 TD/TT: [employer] Operator: [place] [address] Cardiac Rehab Report Signed Patient: ABY MADRIGAL MR#: [id number] : 1965 Acct:[id number] Age/Sex: 59 / F ADM Date: 02/14/25 Loc: CR Attending Dr: GOMEZ SPENCE Ordering Physician: Aguilar Man D.O. Date of Service: 02/14/25 Procedure(s): ITP Accession Number(s): [id number] cc: [facility] Test Date: 2025-02-14 Pat Name: ABY MADRIGAL Department: 48 Room: - Gender: Female Demographic Analyst: : 1965 Requested By: AGUILAR MAN Order Number: [id number] Milton MD: AGUILAR MAN Interpretive Statements Session Date: Electronically Devora d On 02-17-2025 14:29:51 EDT by AGUILAR MAN Dictated By: Aguilar Man D.O. Signed By: 02/17/25 1430 02/17/251429 DD/ 19 TD/TT: [employer] Operator: CBC AUTO DIFF Reviewed date:03/26/2025 08:13:17 PM Interpretation: Performing Lab: Notes/Report: [facility] , White Blood Count 7.3 4.0-11.0 10 3/uL Red Blood Count 4.55 4.20-5.40 10 6/uL Hemoglobin 11.9 12.0-16.0 g/dL Hematocrit 36.9 36.0-48.0 % Mean Corpuscular Volume 81.1 81.0-99.0 fL Mean Corpuscular Hemoglobin 26.2 26.7-34.0 pg Mean Corpuscular HGB Conc 32.2 29.9-35.2 g/dL Red Cell Distribution Width 15.0 11.0-15.0 % Platelet Count 266 150-450 10 3/uL Mean Platelet Volume 10.1 9.5-13.5 fL Neutrophils Percent Auto 61.2 43.0-75.0 % Lymphocytes Percent Auto 30.0 20.5-60.0 % Monocytes Percent Auto 6.4 1.7-12.0 % Eosinophils Percent Auto 1.6 0.9-7.0 % Basophils Percent Auto 0.5 0.2-2.0 % Immature Granulocytes Pct Auto 0.3 0.0-0.5 % Neutrophils Absolute Auto 4.5 1.4-6.5 10 3/uL Lymphocytes Absolute Auto 2.2 1.2-3.8 10 3/uL Monocytes Absolute Auto 0.5 0.3-0.8 10 3/uL Eosinophils Absolute Auto 0.1 0.0-0.7 10 3/uL Basophils Absolute Auto 0.0 0.0-0.1 10 3/uL Immature Granulocytes Abs Auto 0.02 0.00-0.03 10 3/uL Performing Lab: see note ML - [facility] LB CRP Reviewed date:03/26/2025 08:13:17 PM Interpretation: Performing Lab: Notes/Report: [facility] , C Reactive Protein 0.89 <=0.50 mg/dL Performing Lab: see note ML - [facility] LB LIPASE Reviewed date:03/26/2025 08:13:17 PM Interpretation: Performing Lab: Notes/Report: [facility] , Lipase 36.0 16.0-77.0 U/L Performing Lab: see note ML - [facility] LB PROF 14(COMP METB) Reviewed date:03/26/2025 08:13:17 PM Interpretation: Performing Lab: Notes/Report: [facility] , Sodium 139 136-145 mmol/L Potassium 2.5 3.5-5.1 mmol/L RESULTS CALLED TO UMM DIEHL RN @BY Mirtha Oconnor at 2343 Chloride 104 98-107 mmol/L Carbon Dioxide 27.8 21.0-32.0 mmol/L Anion Gap 9.7 Glucose 131 74-106 mg/dL Blood Urea Nitrogen 19.0 7.0-18.0 mg/dL Creatinine 1.34 0.55-1.02 mg/dL Estimated GFR ( Candace 49 >=60 mL/min/1.73m 2 Estimated GFR (Non- Susi 40 >=60 mL/min/1.73m 2 BUN Creatinine Ratio 14.2 Calcium 9.7 8.5-10.1 mg/dL Bilirubin Total 0.3 0.2-1.0 mg/dL Aspartate Amino Transferase 20 15-37 U/L Alanine Aminotransferase 26 14-59 U/L Alkaline Phosphatase 79 46-116 U/L Total Protein 6.7 6.4-8.2 g/dL Albumin Level 3.2 3.4-5.0 g/dL Globulin 3.5 Albumin Globulin Ratio 0.9 Performing Lab: see note ML - [facility] Troponin I High Sensitivity Reviewed date:03/26/2025 08:13:17 PM Interpretation: Performing Lab: Notes/Report: [facility] , Troponin I High Sensitivity 11.9 4.0-51.3 pg/mL CUT-OFF POINTS HAVE BEEN ESTABLISHED BASED ON THE FOURTH UNIVERSAL DEFINITION OF MYOCARDIAL INFARCTION. THE UPPER REFERENCE LIMIT (URL) OF TROPONIN, DEFINED THE 99TH PERCENTILE OF cTnI DISTRIBUTION IN A REFERENCE POPULATION, HAS BEEN CONFIRMED THE DECISION THRESHOLD FOR VA DIAGNOSIS. 99TH PERCENTILE = 51.4 PG/ML NOTE: HIGH-SENSITIVITY TROPONIN ASSAY IS NOT INTENDED TO BE USED IN ISOLATION BUT SHOULD BE INTERPRETED IN CONJUNCTION WITH OTHER DIAGNOSTIC AND CLINICAL INFORMATION. Performing Lab: see note ML - [facility] LB ECG 12 lead Reviewed date:03/26/2025 08:13:17 PM Interpretation: Performing Lab: Notes/Report: Source Facility: [facility] [address] [place] [address] Electrocardiograph Report Signed Patient: ABY MADRIGAL MR#: [id number] : 1965 Acct:[id number] Age/Sex: 59 / F ADM Date: 03/25/25 Loc: ER Attending Dr: Ordering Physician: Kyung Jones D.O. Date of Service: 03/25/25 Procedure(s): ECG 12 lead Accession Number(s): [id number] cc: [facility] Test Date: 2025-03-25 Pat Name: ABY MADRIGAL Department: Room: - Gender: Female Demographic Analyst: : 1965 Requested By: [id number] Order Number: [id number] Reading MD: GOMEZ SPENCE M.D. Measurements Intervals [place] Rate: 79 P: 50 IA: 182 QRS: 11 QRSD: 96 T: 181 QT: 350 QTc: 384 Interpretive Statements 1100 Sinus rhythm [address] depression 4564 Twave abnormality, possible lateral ischemia 9150 abnormal ECG Compared to ECG 01/31/2025 00:27:11 No significant changes Electronically Signed On 03-26-2025 7:48:20 EDT by GOMEZ SPENCE M.D. Dictated By: GOMEZ SPENCE Signed By: 03/26/25 0748 DD/ TD/TT: [employer] Operator: [place] [address] Electrocardiograph Report Signed Patient: ABY MADRIGAL MR#: [id number] : 1965 Acct:[id number] Age/Sex: 59 / F ADM Date: 03/25/25 Loc: ER Attending Dr: Ordering Physician: Kyung Jones D.O. Date of Service: 03/25/25 Procedure(s): ECG 12 lead Accession Number(s): [id number] cc: [facility] Test Date: 2025-03-25 Pat Name: ABY MADRIGAL Department: 48 Room: - Gender: Female Demographic Analyst: : 1965 Blanca rodriguez By: [id number] Order Number: [id number] Reading MD: GOMEZ SPENCE M.D. Measurements Intervals [place] Rate: 79 P: 50 IA: 182 QRS: 11 QRSD: 96 T: 181 QT: 350 QTc: 384 Interpretive Statements 1100 Sinus rhythm [address] depression 4564 Twave abnormali ty, possible lateral ischemia 9150 abnormal ECG Compared to ECG 01/31/2025 00:27:11 No significant changes Electronically Devora d On 03-26-2025 7:48:20 EDT by GOMEZ SPENCE M.D. Dictated By: GOMEZ SPENCE Signed By: 03/26/25 0748 DD/ 20 TD/TT: [employer] Operator: MAGNESIUM Reviewed date:03/26/2025 08:13:17 PM Interpretation: Performing Lab: Notes/Report: [facility] , Magnesium 0.9 1.8-2.4 mg/dL RESULTS CALLED TO NASIR SNYDER RN @BY Mirtha Oconnor at 0155 Performing Lab: see note ML - [facility] LB Troponin I High Sensitivity Reviewed date:03/26/2025 08:13:17 PM Interpretation: Performing Lab: Notes/Report: [facility] , Troponin I High Sensitivity 16.2 4.0-51.3 pg/mL CUT-OFF POINTS HAVE BEEN ESTABLISHED BASED ON THE FOURTH UNIVERSAL DEFINITION OF MYOCARDIAL INFARCTION. THE UPPER REFERENCE LIMIT (URL) OF TROPONIN, DEFINED THE 99TH PERCENTILE OF cTnI DISTRIBUTION IN A REFERENCE POPULATION, HAS BEEN CONFIRMED THE DECISION THRESHOLD FOR VA DIAGNOSIS. 99TH PERCENTILE = 51.4 PG/ML NOTE: HIGH-SENSITIVITY TROPONIN ASSAY IS NOT INTENDED TO BE USED IN ISOLATION BUT SHOULD BE INTERPRETED IN CONJUNCTION WITH OTHER DIAGNOSTIC AND CLINICAL INFORMATION. Performing Lab: see note ML - [facility] LB Troponin I High Sensitivity Reviewed date:07/31/2024 07:53:46 PM Interpretation: Performing Lab: Notes/Report: [facility] , Troponin I High Sensitivity 11.1 4.0-51.3 pg/mL CUT-OFF POINTS HAVE BEEN ESTABLISHED BASED ON THE FOURTH UNIVERSAL DEFINITION OF MYOCARDIAL INFARCTION. THE UPPER REFERENCE LIMIT (URL) OF TROPONIN, DEFINED THE 99TH PERCENTILE OF cTnI DISTRIBUTION IN A REFERENCE POPULATION, HAS BEEN CONFIRMED THE DECISION THRESHOLD FOR VA DIAGNOSIS. 99TH PERCENTILE = 51.4 PG/ML NOTE: HIGH-SENSITIVITY TROPONIN ASSAY IS NOT INTENDED TO BE USED IN ISOLATION BUT SHOULD BE INTERPRETED IN CONJUNCTION WITH OTHER DIAGNOSTIC AND CLINICAL INFORMATION. Performing Lab: see note ML - [facility] LB PROF CHEM 8 (BAS METB) Reviewed date:07/31/2024 07:53:46 PM Interpretation: Performing Lab: Notes/Report: [facility] , Sodium 139 136-145 mmol/L Potassium 3.5 3.5-5.1 mmol/L Chloride 103 98-107 mmol/L Carbon Dioxide 24.9 21.0-32.0 mmol/L Anion Gap 14.6 Glucose 195 74-106 mg/dL Blood Urea Nitrogen 22.0 7.0-18.0 mg/dL Creatinine 1.59 0.55-1.02 mg/dL Estimated GFR ( Candace 40 >=60 Estimated GFR (Non- Susi 33 >=60 BUN Creatinine Ratio 13.8 Calcium 8.8 8.5-10.1 mg/dL Performing Lab: see note ML - [facility] LB PROF 14(COMP METB) Reviewed date:04/01/2025 06:27:24 PM Interpretation: Performing Lab: Notes/Report: [facility] , Sodium 141 136-145 mmol/L Potassium 2.9 3.5-5.1 mmol/L RESULTS SILVA D TO JULIENNE BROTHERS AT 1821 Chloride 104 98-107 mmol/L Carbon Dioxide 29.8 21.0-32.0 mmol/L Anion Gap 10.1 Glucose 95 74-106 mg/dL Blood Urea Nitrogen 23.0 7.0-18.0 mg/dL Creatinine 1.17 0.55-1.02 mg/dL Estimated GFR ( Candace 57 >=60 mL/min/1.73m 2 Estimated GFR (Non- Susi 47 >=60 mL/min/1.73m 2 BUN Creatinine Ratio 19.7 Calcium 9.3 8.5-10.1 mg/dL Bilirubin Total 0.3 0.2-1.0 mg/dL Aspartate Amino Transferase 16 15-37 U/L Alanine Aminotransferase 19 14-59 U/L Alkaline Phosphatase 68 46-116 U/L Total Protein 6.1 6.4-8.2 g/dL Albumin Level 3.0 3.4-5.0 g/dL Globulin 3.1 Albumin Globulin Ratio 1.0 Performing Lab: see note ML - [facility] LB UA RANDOM W or MICROSCOPIC Reviewed date:04/02/2025 02:24:30 PM Interpretation: Performing Lab: Notes/Report: [facility] , Color Urine LT. YELLOW YELLOW Clarity Urine CLEAR CLEAR Specific [place] Urine <=1.005 1.005-1.025 pH Urine 6.0 5.0-9.0 Protein Urine NEGATIVE NEG/TRACE mg/dL Glucose Urine UA >=1000 NEGATIVE mg/dL Bilirubin Urine NEGATIVE NEGATIVE Ketones Urine NEGATIVE NEGATIVE mg/dL Blood Urine TRACE-I NEGATIVE Nitrite Urine NEGATIVE NEGATIVE Urobilinogen Urine 0.2 0.2-1.0 EU/dL Leukocyte Esterase Urine NEGATIVE NEGATIVE WBC Urine 0-2 NONE SEEN #/HPF RBC Urine NONE SEEN 0-2 #/HPF Bacteria Urine NONE SEEN NONE SEEN #/HPF Mucus Urine NONE SEEN NONE SEEN Squamous Epithelial Cell Urine RARE NONE/RARE #/LPF Crystals Seen? None Seen None Seen #/HPF Cast Seen? NONE SEEN NONE SEEN #/LPF Urine Culture Indicated NO Performing Lab: see note ML - [facility] LB LAB TESTING Reviewed date:04/25/2025 09:59:02 PM Interpretation: Performing Lab: Notes/Report: [id number] Reducing Substances - Fecal [facility] , Miscellaneous Test COMMENT . Test Ordered: [id number] Reducing Substances - Fecal Reducing Substances - Fecal Normal Y8 Reference Range: Normal Performed at: Y8 - [employer] [address] [id number] [place] Attendant: Navneet Simeon [facility], Phone: [phone] Performed at: CB - [facility] [address] [id number] [place] Attendant: Gopi Romeo PhD, Phone: [phone] Performing Lab: see note - [facility] LB CBC AUTO DIFF Reviewed date:07/31/2024 07:53:46 PM Interpretation: Performing Lab: Notes/Report: [facility] , White Blood Count 8.3 4.0-11.0 10 3/uL Red Blood Count 4.41 4.20-5.40 10 6/uL Hemoglobin 12.0 12.0-16.0 g/dL Hematocrit 36.4 36.0-48.0 % Mean Corpuscular Volume 82.5 81.0-99.0 fL Mean Corpuscular Hemoglobin 27.2 26.7-34.0 pg Mean Corpuscular HGB Conc 33.0 29.9-35.2 g/dL Red Cell Distribution Width 14.5 11.0-15.0 % Platelet Count 246 150-450 10 3/uL Mean Platelet Volume 10.3 9.5-13.5 fL Neutrophils Percent Auto 69.8 43.0-75.0 % Lymphocytes Percent Auto 21.3 20.5-60.0 % Monocytes Percent Auto 6.7 1.7-12.0 % Eosinophils Percent Auto 1.5 0.9-7.0 % Basophils Percent Auto 0.5 0.2-2.0 % Immature Granulocytes Pct Auto 0.2 0.0-0.5 % Neutrophils Absolute Auto 5.8 1.4-6.5 10 3/uL Lymphocytes Absolute Auto 1.8 1.2-3.8 10 3/uL Monocytes Absolute Auto 0.6 0.3-0.8 10 3/uL Eosinophils Absolute Auto 0.1 0.0-0.7 10 3/uL Basophils Absolute Auto 0.0 0.0-0.1 10 3/uL Immature Granulocytes Abs Auto 0.02 0.00-0.03 10 3/uL Performing Lab: see note - [facility] LB E coli Shiga Toxin EIA Reviewed date:04/22/2025 04:45:20 PM Interpretation: Performing Lab: Notes/Report: [facility] , E coli Shiga Toxin EIA See Below For Report E coli Shiga Toxin EIA E coli Shiga Toxin EIA Negative E coli Shiga Toxin EIA E coli Shiga Toxin EIA Performed at: [facility] E coli Shiga Toxin EIA E coli Shiga Toxin EIA [address] [place], [place] [id number] E coli Shiga Toxin EIA E coli Shiga Toxin EIA Cabana Attendant: Levar Romeo PhD, Phone: [phone] E coli Shiga Toxin EIA Performing Lab: see note LC - [facility] LB SEE REPORT - Adult Caregiver Id information not found for OBX-specific licensed sales producer legend PROF CHEM 8 (BAS METB) Reviewed date:07/27/2024 08:17:46 PM Interpretation: Performing Lab: Notes/Report: [facility] , Sodium 139 136-145 mmol/L Potassium 3.5 3.5-5.1 mmol/L Chloride 102 98-107 mmol/L Carbon Dioxide 28.2 21.0-32.0 mmol/L Anion Gap 12.3 Glucose 97 74-106 mg/dL Blood Urea Nitrogen 17.0 7.0-18.0 mg/dL Creatinine 1.37 0.55-1.02 mg/dL Estimated GFR ( Candace 48 >=60 Estimated GFR (Non- Susi 39 >=60 BUN Creatinine Ratio 12.4 Calcium 9.1 8.5-10.1 mg/dL Performing Lab: see note ML - [facility] LB Campylobacter Culture Reviewed date:04/24/2025 04:35:14 PM Interpretation: Performing Lab: Notes/Report: [facility] , Campylobacter Culture See Below For Report Campylobacter Culture No Campylobacter species isolated. Performing Lab: see note LC - [facility] LB CBC AUTO DIFF Reviewed date:07/27/2024 08:17:46 PM Interpretation: Performing Lab: Notes/Report: [facility] , White Blood Count 6.5 4.0-11.0 10 3/uL Red Blood Count 4.26 4.20-5.40 10 6/uL Hemoglobin 11.6 12.0-16.0 g/dL Hematocrit 36.1 36.0-48.0 % Mean Corpuscular Volume 84.7 81.0-99.0 fL Mean Corpuscular Hemoglobin 27.2 26.7-34.0 pg Mean Corpuscular HGB Conc 32.1 29.9-35.2 g/dL Red Cell Distribution Width 14.8 11.0-15.0 % Platelet Count 232 150-450 10 3/uL Mean Platelet Volume 10.5 9.5-13.5 fL Neutrophils Percent Auto 52.3 43.0-75.0 % Lymphocytes Percent Auto 34.2 20.5-60.0 % Monocytes Percent Auto 8.5 1.7-12.0 % Eosinophils Percent Auto 3.9 0.9-7.0 % Basophils Percent Auto 0.9 0.2-2.0 % Immature Granulocytes Pct Auto 0.2 0.0-0.5 % Neutrophils Absolute Auto 3.4 1.4-6.5 10 3/uL Lymphocytes Absolute Auto 2.2 1.2-3.8 10 3/uL Monocytes Absolute Auto 0.6 0.3-0.8 10 3/uL Eosinophils Absolute Auto 0.3 0.0-0.7 10 3/uL Basophils Absolute Auto 0.1 0.0-0.1 10 3/uL Immature Granulocytes Abs Auto 0.01 0.00-0.03 10 3/uL Performing Lab: see note ML - [facility] LB PROF CHEM 8 (BAS METB) Reviewed date:07/26/2024 07:34:52 PM Interpretation: Performing Lab: Notes/Report: [facility] , Sodium 144 136-145 mmol/L Potassium 3.5 3.5-5.1 mmol/L Chloride 107 98-107 mmol/L Carbon Dioxide 25.3 21.0-32.0 mmol/L Anion Gap 15.2 Glucose 101 74-106 mg/dL Blood Urea Nitrogen 14.0 7.0-18.0 mg/dL Creatinine 1.24 0.55-1.02 mg/dL Estimated GFR ( Candace 53 >=60 Estimated GFR (Non- Susi 44 >=60 BUN Creatinine Ratio 11.3 Calcium 9.1 8.5-10.1 mg/dL Performing Lab: see note ML - [facility] LB CBC AUTO DIFF Reviewed date:07/26/2024 07:34:52 PM Interpretation: Performing Lab: Notes/Report: [facility] , White Blood Count 7.2 4.0-11.0 10 3/uL Red Blood Count 4.09 4.20-5.40 10 6/uL Hemoglobin 11.2 12.0-16.0 g/dL Hematocrit 34.7 36.0-48.0 % Mean Corpuscular Volume 84.8 81.0-99.0 fL Mean Corpuscular Hemoglobin 27.4 26.7-34.0 pg Mean Corpuscular HGB Conc 32.3 29.9-35.2 g/dL Red Cell Distribution Width 14.8 11.0-15.0 % Platelet Count 223 150-450 10 3/uL Mean Platelet Volume 10.3 9.5-13.5 fL Neutrophils Percent Auto 57.9 43.0-75.0 % Lymphocytes Percent Auto 30.1 20.5-60.0 % Monocytes Percent Auto 6.6 1.7-12.0 % Eosinophils Percent Auto 4.6 0.9-7.0 % Basophils Percent Auto 0.7 0.2-2.0 % Immature Granulocytes Pct Auto 0.1 0.0-0.5 % Neutrophils Absolute Auto 4.2 1.4-6.5 10 3/uL Lymphocytes Absolute Auto 2.2 1.2-3.8 10 3/uL Monocytes Absolute Auto 0.5 0.3-0.8 10 3/uL Eosinophils Absolute Auto 0.3 0.0-0.7 10 3/uL Basophils Absolute Auto 0.1 0.0-0.1 10 3/uL Immature Granulocytes Abs Auto 0.01 0.00-0.03 10 3/uL Performing Lab: see note ML - [facility] LB Prothrombin Time INR Reviewed date:07/24/2024 12:00:18 PM Interpretation: Performing Lab: Notes/Report: [facility] , Prothrombin Time 10.1 9.0-11.6 sec INR 0.95 DESIRED INR: 2.0-3.0 CONDITIONS NOT LISTED BELOW 2.5-3.5 FOR PROSTHETIC HEART VALVE REPLACEMENT 2.5-3.5 RECURRENT THROMBOSIS Performing Lab: see note - [facility] LB PROF 14(COMP METB) Reviewed date:07/24/2024 12:00:18 PM Interpretation: Performing Lab: Notes/Report: [facility] , Sodium 145 136-145 mmol/L Potassium 3.1 3.5-5.1 mmol/L Chloride 110 98-107 mmol/L Carbon Dioxide 22.8 21.0-32.0 mmol/L Anion Gap 15.3 Glucose 111 74-106 mg/dL Blood Urea Nitrogen 11.0 7.0-18.0 mg/dL Creatinine 1.02 0.55-1.02 mg/dL Estimated GFR ( Candace >60 >=60 Estimated GFR (Non- Susi 55 >=60 BUN Creatinine Ratio 10.8 Calcium 9.0 8.5-10.1 mg/dL Bilirubin Total 0.4 0.2-1.0 mg/dL Aspartate Amino Transferase 24 15-37 U/L Alanine Aminotransferase 42 14-59 U/L Alkaline Phosphatase 73 46-116 U/L Total Protein 5.8 6.4-8.2 g/dL Albumin Level 2.9 3.4-5.0 g/dL Globulin 2.9 Albumin Globulin Ratio 1.0 Performing Lab: see note ML - [facility] LB PHOSPHORUS Reviewed date:07/24/2024 12:00:18 PM Interpretation: Performing Lab: Notes/Report: [facility] , Phosphorus 3.6 2.6-4.7 mg/dL Performing Lab: see note ML - [facility] LB MAGNESIUM Reviewed date:07/24/2024 12:00:18 PM Interpretation: Performing Lab: Notes/Report: [facility] , Magnesium 1.9 1.8-2.4 mg/dL Performing Lab: see note ML - [facility] LB CBC AUTO DIFF Reviewed date:07/24/2024 12:00:18 PM Interpretation: Performing Lab: Notes/Report: [facility] , White Blood Count 6.5 4.0-11.0 10 3/uL Red Blood Count 3.99 4.20-5.40 10 6/uL Hemoglobin 10.8 12.0-16.0 g/dL Hematocrit 34.0 36.0-48.0 % Mean Corpuscular Volume 85.2 81.0-99.0 fL Mean Corpuscular Hemoglobin 27.1 26.7-34.0 pg Mean Corpuscular HGB Conc 31.8 29.9-35.2 g/dL Red Cell Distribution Width 14.5 11.0-15.0 % Platelet Count 204 150-450 10 3/uL Mean Platelet Volume 9.8 9.5-13.5 fL Neutrophils Percent Auto 54.3 43.0-75.0 % Lymphocytes Percent Auto 33.2 20.5-60.0 % Monocytes Percent Auto 7.2 1.7-12.0 % Eosinophils Percent Auto 4.5 0.9-7.0 % Basophils Percent Auto 0.6 0.2-2.0 % Immature Granulocytes Pct Auto 0.2 0.0-0.5 % Neutrophils Absolute Auto 3.5 1.4-6.5 10 3/uL Lymphocytes Absolute Auto 2.2 1.2-3.8 10 3/uL Monocytes Absolute Auto 0.5 0.3-0.8 10 3/uL Eosinophils Absolute Auto 0.3 0.0-0.7 10 3/uL Basophils Absolute Auto 0.0 0.0-0.1 10 3/uL Immature Granulocytes Abs Auto 0.01 0.00-0.03 10 3/uL Performing Lab: see note ML - [facility] LB BNP Reviewed date:07/24/2024 12:00:18 PM Interpretation: Performing Lab: Notes/Report: [facility] , NT Pro B Type Natriuretic Pept 678.0 <=900.0 pg/mL Performing Lab: see note ML - [facility] Troponin I High Sensitivity Reviewed date:07/24/2024 12:00:18 PM Interpretation: Performing Lab: Notes/Report: [facility] , Troponin I High Sensitivity 12.8 4.0-51.3 pg/mL CUT-OFF POINTS HAVE BEEN ESTABLISHED BASED ON THE FOURTH UNIVERSAL DEFINITION OF MYOCARDIAL INFARCTION. THE UPPER REFERENCE LIMIT (URL) OF TROPONIN, DEFINED THE 99TH PERCENTILE OF cTnI DISTRIBUTION IN A REFERENCE POPULATION, HAS BEEN CONFIRMED THE DECISION THRESHOLD FOR VA DIAGNOSIS. 99TH PERCENTILE = 51.4 PG/ML NOTE: HIGH-SENSITIVITY TROPONIN ASSAY IS NOT INTENDED TO BE USED IN ISOLATION BUT SHOULD BE INTERPRETED IN CONJUNCTION WITH OTHER DIAGNOSTIC AND CLINICAL INFORMATION. Performing Lab: see note ML - [facility] PROF CHEM 8 (BAS METB) Reviewed date:07/24/2024 12:00:18 PM Interpretation: Performing Lab: Notes/Report: [facility] , Sodium 145 136-145 mmol/L Potassium 3.2 3.5-5.1 mmol/L Chloride 109 98-107 mmol/L Carbon Dioxide 28.7 21.0-32.0 mmol/L Anion Gap 10.5 Glucose 139 74-106 mg/dL Blood Urea Nitrogen 12.0 7.0-18.0 mg/dL Creatinine 1.28 0.55-1.02 mg/dL Estimated GFR ( Candace 52 >=60 Estimated GFR (Non- Susi 43 >=60 BUN Creatinine Ratio 9.4 Calcium 9.0 8.5-10.1 mg/dL Performing Lab: see note ML - [facility] CBC AUTO DIFF Reviewed date:07/24/2024 12:00:18 PM Interpretation: Performing Lab: Notes/Report: [facility] , White Blood Count 6.9 4.0-11.0 10 3/uL Red Blood Count 4.16 4.20-5.40 10 6/uL Hemoglobin 11.4 12.0-16.0 g/dL Hematocrit 35.4 36.0-48.0 % Mean Corpuscular Volume 85.1 81.0-99.0 fL Mean Corpuscular Hemoglobin 27.4 26.7-34.0 pg Mean Corpuscular HGB Conc 32.2 29.9-35.2 g/dL Red Cell Distribution Width 14.5 11.0-15.0 % Platelet Count 231 150-450 10 3/uL Mean Platelet Volume 10.4 9.5-13.5 fL Neutrophils Percent Auto 63.7 43.0-75.0 % Lymphocytes Percent Auto 24.1 20.5-60.0 % Monocytes Percent Auto 7.5 1.7-12.0 % Eosinophils Percent Auto 4.0 0.9-7.0 % Basophils Percent Auto 0.4 0.2-2.0 % Immature Granulocytes Pct Auto 0.3 0.0-0.5 % Neutrophils Absolute Auto 4.4 1.4-6.5 10 3/uL Lymphocytes Absolute Auto 1.7 1.2-3.8 10 3/uL Monocytes Absolute Auto 0.5 0.3-0.8 10 3/uL Eosinophils Absolute Auto 0.3 0.0-0.7 10 3/uL Basophils Absolute Auto 0.0 0.0-0.1 10 3/uL Immature Granulocytes Abs Auto 0.02 0.00-0.03 10 3/uL Performing Lab: see note ML - [facility] LB PROF CHEM 8 (BAS METB) Reviewed date:07/24/2024 12:00:18 PM Interpretation: Performing Lab: Notes/Report: [facility] , Sodium 145 136-145 mmol/L Potassium 3.3 3.5-5.1 mmol/L Chloride 108 98-107 mmol/L Carbon Dioxide 26.6 21.0-32.0 mmol/L Anion Gap 13.7 Glucose 122 74-106 mg/dL Blood Urea Nitrogen 9.0 7.0-18.0 mg/dL Creatinine 1.43 0.55-1.02 mg/dL Estimated GFR ( Candace 45 >=60 Estimated GFR (Non- Susi 37 >=60 BUN Creatinine Ratio 6.3 Calcium 8.9 8.5-10.1 mg/dL Performing Lab: see note ML - [facility] LB CT angio chest Reviewed date:07/21/2024 10:43:54 AM Interpretation: Performing Lab: Notes/Report: Source Facility: [facility]-[address] [place] [address] [place] [address] CT Scan Report Signed Patient: ABY MADRIGAL MR#: [id number] : 1965 Acct:[id number] Age/Sex: 59 / F ADM Date: 07/20/24 Loc: [place] 219-[address]: Kendra Moran M.D. Ordering Physician: Priti Singh NP Date of Service: 07/20/24 Procedure(s): CT angio chest Accession Number(s): [id number] cc: Kendra Moran M.D. [place] [address] Patient Name: ABY MADRIGAL MRN: [id number] date: 1965 Sex: F Assigned Patient Location: [place] Current Patient Location: [place] Accession/Order Number: [id number] Exam Date: 07/20/2024 23:28 Report Date: 07/21/2024 01:13 At the request of: PRITI SINGH Procedure: CT angio chest EXAM: CT angio chest HISTORY: elevated d dimer, shortness of breath COMPARISON: PET/CT examination dated 2024. TECHNIQUE: Axial CT images through the chest were obtained after the intravenous administration of contrast. Coronal and sagittal reformats were obtained. Dose reduction techniques were achieved by using automated exposure control and/or adjustment of mA and/or kV according to patient size and/or use of iterative reconstruction technique. FINDINGS: The study is technically adequate with a good contrast bolus to the pulmonary arteries. There are no filling defects or vascular cutoffs to indicate a pulmonary embolus. The pulmonary arteries are normal in size. There is a 1.1 x 0.7 cm nodule in the right middle lobe, unchanged compared to the prior PET/CT (series 4, image 45). There is a suspected lymph node along the right minor fissure measuring up to 0.3 cm (series 4, image 42). The central airways are patent. No pneumothorax is seen. There are trace pleural effusions. The thoracic aorta is normal in course and caliber without evidence of an aneurysm. There is mild cardiomegaly. There is no pericardial effusion. There is coronary artery disease. There is advanced atherosclerotic disease. There is no mediastinal, hilar, or axillary lymphadenopathy by CT size criteria. Images through the upper abdomen reveal hepatic steatosis. The patient is status post a cholecystectomy. There is a stable left adrenal mass. No suspicious or aggressive bone lesions are seen. No acute fracture is seen. CT/CT angio chest IMPRESSION: 1. No evidence of pulmonary embolism. 2. No significant interval change to a right middle lobe pulmonary nodule. 3. Trace pleural effusions. 4. Mild cardiomegaly with coronary artery disease. Electronically authenticated by: Alton MCCABE Date: 07/21/2024 01:13 Dictated By: Christiano Mccabe M.D. 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 Ordering Physician: Priti Singh NP Date of Service: 07/20/24 Procedure(s): CT ang io chest Accession Number(s): [id number] cc: Kendra Moran M.D. [place] [address] Patient Name: ABY MADRIGAL MRN: [id number] date: 1965 Sex: F Assigned Patient Location: [place] Current Patient Loca tion: [place] Accession/Order Numb er: [id number] Exam Date: 07/20/2024 23:28 Report Date: 07/21/2024 01:13 At the request of: PRITI SINGH Procedure: CT angio chest EXAM: CT angio chest HISTORY: elevated d dimer, shortness of breath COMPARISON: PET/CT examination dated 2024. TECHNIQUE: Axial CT images through the chest were obtained after the intravenous administration of contrast. Coronal and sagittal reformats were obtained. Dose reduction techn iques were achieved by using automated exposure control and/or adjustment of mA and/or kV according to patient size and/or use of iterative reconstruc tion technique. FINDINGS: The study is technic ally adequate with a good contrast bolus to the pulmonary arteries. There are no filling defects or vascular cutoffs to indicate a pulmonary embolus. T he pulmonary arteries are normal in size. There is a 1.1 x 0.7 cm nodule in the right middle lobe, unchanged compared to the prior PET/CT (se farnaz 4, image 45). There is a suspected lymph node along the right minor fiss ure measuring up to 0.3 cm (series 4, image 42). The central airways are patent. No pneumothorax is seen. There are trace pleural effusions. The thoracic aorta i s normal in course and caliber without evidence of an aneurysm. There is m ild cardiomegaly. There is no pericardial effusion. There is coronary artery disease. There is advanced atherosclerotic disease. There is no mediasti nal, hilar, or axillary lymphadenopathy by CT size criteria. Images through the u pper abdomen reveal hepatic steatosis. The patient is status post a cholecystectomy. There is a stable left adrenal mass. No suspicious or aggressive bone lesions are seen. No acute fracture is seen. C T/CT angio chest IMPRESSION: 1. No evidence of pulmonary embolism. 2. No significant interval change to a right middle lobe pulmonary nodule. 3. Trace pleural effusions. 4. Mild cardiomegaly with coronary artery disease. Electronically authenticated by: Alton MCCABE Date: 07/21/2024 01:13 Dictated By: Christiano Mccabe M.D. Signed By: 07/21/24115 DD/ 2 TD/TT: [employer] Operator: CT abdomen pelvis wo con Reviewed date:07/21/2024 10:43:54 AM Interpretation: Performing Lab: Notes/Report: Source Facility: [facility]-[address] [place] [address] [place] [address] CT Scan Report Signed Patient: ABY MADRIGAL MR#: [id number] : 1965 Acct:[id number] Age/Sex: 59 / F ADM Date: 07/20/24 Loc: [place] 219-[address]: Kendra Moran M.D. Ordering Physician: Priti Singh NP Date of Service: 07/20/24 Procedure(s): CT abdomen pelvis wo con Accession Number(s): [id number] cc: Kendra Moran M.D. [place] [id number] Patient Name: ABY MADRIGAL MRN: [id number] date: 1965 Sex: F Assigned Patient Location: [place] Current Patient Location: Accession/Order Number: [id number] Exam Date: 07/20/2024 23:28 Report Date: 07/21/2024 01:04 At the request of: PRITI SINGH Procedure: CT abdomen pelvis wo con EXAM: CT abdomen pelvis wo con HISTORY: nausea, vomiting, diarrhea COMPARISON: PET/CT examination dated 2024. TECHNIQUE: Noncontrast axial CT images through the abdomen and pelvis were obtained with coronal and sagittal reformats. Dose reduction techniques were achieved by using automated exposure control and/or adjustment of mA and/or kV according to patient size and/or use of iterative reconstruction technique. FINDINGS: The visualized portions of the lung bases are clear. There is coronary artery disease. Abdomen: Please note that the sensitivity for detection of focal lesions or vascular disease is markedly reduced without intravenous contrast. There is hepatic steatosis. The spleen is unremarkable. There is no intra or extrahepatic biliary duct dilatation. The gallbladder is surgically absent. There is a 2.9 x 2.7 cm left adrenal mass, stable in size compared to the prior examination (series 3, image 33). There are bilateral nonobstructive renal calculi measuring up to 0.3 cm on the right. There is left renal cortical scarring and atrophy. The pancreas and bowel loops are unremarkable. There is no mesenteric or retroperitoneal lymphadenopathy. The appendix is not definitively seen. There is a tiny fat-containing umbilical hernia. Pelvis: The bladder and rectum are unremarkable. There is no iliac or inguinal lymphadenopathy. The patient is status post a hysterectomy. The ovaries appear within normal limits by CT. There is advanced atherosclerotic disease. Bone windows show no aggressive osseous lesions. CT/CT abdomen pelvis wo con IMPRESSION: 1. No specific etiology identified to explain the patient's nausea, vomiting, or diarrhea is seen. 2. Hepatic steatosis. 3. Status post cholecystectomy, hysterectomy, and possible appendectomy as the appendix is not seen. 4. No significant interval change to a left adrenal mass. 5. Bilateral nonobstructive renal calculi. Electronically authenticated by: Alton MCCABE Date: 07/21/2024 01:04 Dictated By: Christiano Mccabe M.D. Signed By: 07/21/24107 DD/ 3 TD/TT: [employer] Operator: [place] [address] CT Scan Report Signed Patient: ABY MADRIGAL MR#: [id number] : 1965 Acct:[id number] Age/Sex: 59 / F ADM Date: 07/20/24 Loc: [place] 219-[address]: Zhanna Moran M.D. Ordering Physician: Priti Singh NP Date of Service: 07/20/24 Procedure(s): CT abd omen pelvis wo con Accession Number(s): [id number] cc: Kendra Moran M.D. [place] [id number] Patient Name: ABY MADRIGAL MRN: [id number] date: 1965 Sex: F Assigned Patient Location: [place] Current Patient Location: Accession/Order Numb er: [id number] Exam Date: 07/20/2024 23:28 Report Date: 07/21/2024 01:04 At the request of: PRITI SINGH Procedure: CT abdome n pelvis wo con EXAM: CT abdomen pel vis wo con HISTORY: nausea, vomiting, diarrhea COMPARISON: PET/CT examination dated 2024. TECHNIQUE: Noncontra st axial CT images through the abdomen and pelvis were obtained with lopez l and sagittal reformats. Dose reduction techn iques were achieved by using automated exposure control and/or adjustment of mA and/or kV according to patient size and/or use of iterative reconstruc tion technique. FINDINGS: The visualized porti ons of the lung bases are clear. There is coronary artery disease. Abdomen: Please note that the sensitivity for detection of focal lesions or vascular disease is markedly reduced without intravenous contrast. There is hepatic steatosis. The spleen is unremarkable. There is no intra or extrahepatic biliary duct dilatation. The gallbladder is surgically absent. There is a 2.9 x 2.7 cm left adrenal mass, stable in size compared to the prior examination (series 3, image 33). There are bilateral nonobstructive renal calculi measuring up to 0.3 cm on the right. There is left renal cortical scarring and atrophy. The pancreas and bow el loops are unremarkable. There is no mesenteric or retroperitoneal lymphadenopathy. The appendix is not definitively seen. There is a tiny fat-containing umbilical hernia. Pelvis: The bladder and rectum are unremarkable. There is no iliac or inguinal lymphadenopathy. The patient is status post a hysterectomy. The ovaries appear within normal limits by CT. There is advanced atherosclerotic disease. Bone windows show no aggressive osseous lesions. C T/CT abdomen pelvis wo con IMPRESSION: 1. No specific etiol ogy identified to explain the patient's nausea, vomiting, or diarrhea is seen. 2. Hepatic steatosis. 3. Status post cholecystectomy, hysterectomy, and possible appendectomy as the appendix is not seen. 4. No significant interval change to a left adrenal mass. 5. Bilateral nonobstructive renal calculi. Electronically authenticated by: Alton MCCABE Date: 07/21/2024 01:04 Dictated By: Christiano Mccabe M.D. Signed By: 07/21/24 010 DD/ 3 TD/TT: [employer] Operator: Troponin I High Sensitivity Reviewed date:07/21/2024 10:43:54 AM Interpretation: Performing Lab: Notes/Report: [facility] , Troponin I High Sensitivity 13.1 4.0-51.3 pg/mL CUT-OFF POINTS HAVE BEEN ESTABLISHED BASED ON THE FOURTH UNIVERSAL DEFINITION OF MYOCARDIAL INFARCTION. THE UPPER REFERENCE LIMIT (URL) OF TROPONIN, DEFINED THE 99TH PERCENTILE OF cTnI DISTRIBUTION IN A REFERENCE POPULATION, HAS BEEN CONFIRMED THE DECISION THRESHOLD FOR VA DIAGNOSIS. 99TH PERCENTILE = 51.4 PG/ML NOTE: HIGH-SENSITIVITY TROPONIN ASSAY IS NOT INTENDED TO BE USED IN ISOLATION BUT SHOULD BE INTERPRETED IN CONJUNCTION WITH OTHER DIAGNOSTIC AND CLINICAL INFORMATION. Performing Lab: see note ML - [facility] PROF CHEM 8 (BAS METB) Reviewed date:07/21/2024 10:43:54 AM Interpretation: Performing Lab: Notes/Report: [facility] , Sodium 143 136-145 mmol/L Potassium 2.8 3.5-5.1 mmol/L RESULTS CALLED TO JAYCEE LARSON RN @BY Mirtha Oconnor at 2050 Chloride 103 98-107 mmol/L Carbon Dioxide 28.0 21.0-32.0 mmol/L Anion Gap 14.8 Glucose 118 74-106 mg/dL Blood Urea Nitrogen 14.0 7.0-18.0 mg/dL Creatinine 1.36 0.55-1.02 mg/dL Estimated GFR ( Candace 48 >=60 Estimated GFR (Non- Susi 40 >=60 BUN Creatinine Ratio 10.3 Calcium 9.4 8.5-10.1 mg/dL Performing Lab: see note ML - [facility] Troponin I High Sensitivity Reviewed date:07/21/2024 10:43:54 AM Interpretation: Performing Lab: Notes/Report: [facility] , Troponin I High Sensitivity 12.3 4.0-51.3 pg/mL CUT-OFF POINTS HAVE BEEN ESTABLISHED BASED ON THE FOURTH UNIVERSAL DEFINITION OF MYOCARDIAL INFARCTION. THE UPPER REFERENCE LIMIT (URL) OF TROPONIN, DEFINED THE 99TH PERCENTILE OF cTnI DISTRIBUTION IN A REFERENCE POPULATION, HAS BEEN CONFIRMED THE DECISION THRESHOLD FOR [facility] DIAGNOSIS. 99TH PERCENTILE = 51.4 PG/ML NOTE: HIGH-SENSITIVITY TROPONIN ASSAY IS NOT INTENDED TO BE USED IN ISOLATION BUT SHOULD BE INTERPRETED IN CONJUNCTION WITH OTHER DIAGNOSTIC AND CLINICAL INFORMATION. Performing Lab: see note ML - [facility] Urine Culture, Routine Reviewed date:07/25/2024 08:57:52 PM Interpretation: Performing Lab: Notes/Report: [facility] , Urine Culture, Routine See Below For Report Urine Culture, Routine Urine Culture, Routine Culture shows les s than 10,000 colony forming units of bacteria per Urine Culture, Routine Urine Culture, Routine milliliter of uri ne. This colony count is not generally considered Urine Culture, Routine Urine Culture, Routine to be clinically significant. 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 It has not been cleared or approved by the Food and Drug Administration. Performed at: [address] [id number] Cabana Attendant: Kelsey Ceron MD, Phone: [phone] Performing Lab: see note [facility] LB Troponin I High Sensitivity Reviewed date:07/20/2024 07:30:18 PM Interpretation: Performing Lab: Notes/Report: [facility] , Troponin I High Sensitivity 12.6 4.0-51.3 pg/mL CUT-OFF POINTS HAVE BEEN ESTABLISHED BASED ON THE FOURTH UNIVERSAL DEFINITION OF MYOCARDIAL INFARCTION. THE UPPER REFERENCE LIMIT (URL) OF TROPONIN, DEFINED THE 99TH PERCENTILE OF cTnI DISTRIBUTION IN A REFERENCE POPULATION, HAS BEEN CONFIRMED THE DECISION THRESHOLD FOR VA DIAGNOSIS. 99TH PERCENTILE = 51.4 PG/ML NOTE: HIGH-SENSITIVITY TROPONIN ASSAY IS NOT INTENDED TO BE USED IN ISOLATION BUT SHOULD BE INTERPRETED IN CONJUNCTION WITH OTHER DIAGNOSTIC AND CLINICAL INFORMATION. Performing Lab: see note ML - [facility] LB UA RANDOM W or MICROSCOPIC Reviewed date:07/21/2024 10:43:54 AM Interpretation: Performing Lab: Notes/Report: [facility] , Color Urine LT. YELLOW YELLOW Clarity Urine CLEAR CLEAR Specific [place] Urine 1.015 1.005-1.025 pH Urine 6.0 5.0-9.0 Protein Urine 30 NEG/TRACE mg/dL Glucose Urine UA NEGATIVE NEGATIVE mg/dL Bilirubin Urine NEGATIVE NEGATIVE Ketones Urine NEGATIVE NEGATIVE mg/dL Blood Urine NEGATIVE NEGATIVE Nitrite Urine NEGATIVE NEGATIVE Urobilinogen Urine 1.0 0.2-1.0 EU/dL Leukocyte Esterase Urine SMALL NEGATIVE WBC Urine 2-5 NONE SEEN #/HPF RBC Urine 0-2 0-2 #/HPF Bacteria Urine MODERATE NONE SEEN #/HPF Mucus Urine SMALL NONE SEEN Squamous Epithelial Cell Urine FEW NONE/RARE #/LPF Transitional Epi Cells Urine FEW NONE SEEN #/LPF Crystals Seen? None Seen None Seen #/HPF Cast Seen? SEEN NONE SEEN #/LPF Fine Granular Casts Urine RARE Urine Culture Indicated YES Performing Lab: see note ML - [facility] LB PROF CHEM 8 (BAS METB) Reviewed date:07/20/2024 12:49:37 PM Interpretation: Performing Lab: Notes/Report: [facility] , Sodium 143 136-145 mmol/L Potassium 3.7 3.5-5.1 mmol/L Chloride 105 98-107 mmol/L Carbon Dioxide 26.8 21.0-32.0 mmol/L Anion Gap 14.9 Glucose 121 74-106 mg/dL Blood Urea Nitrogen 11.0 7.0-18.0 mg/dL Creatinine 1.23 0.55-1.02 mg/dL Estimated GFR ( Candace 54 >=60 Estimated GFR (Non- Susi 45 >=60 BUN Creatinine Ratio 8.9 Calcium 9.5 8.5-10.1 mg/dL Performing Lab: see note ML - [facility] LB PHOSPHORUS Reviewed date:07/21/2024 10:43:54 AM Interpretation: Performing Lab: Notes/Report: [facility] , Phosphorus 3.4 2.6-4.7 mg/dL Performing Lab: see note ML - [facility] LB MAGNESIUM Reviewed date:07/21/2024 10:43:54 AM Interpretation: Performing Lab: Notes/Report: [facility] , Magnesium 1.8 1.8-2.4 mg/dL Performing Lab: see note ML - [facility] LB LIVER PROFILE Reviewed date:07/21/2024 10:43:54 AM Interpretation: Performing Lab: Notes/Report: [facility] , Bilirubin Total 0.5 0.2-1.0 mg/dL Bilirubin Direct 0.2 0.0-0.2 mg/dL Aspartate Amino Transferase 40 15-37 U/L Alanine Aminotransferase 70 14-59 U/L Alkaline Phosphatase 93 46-116 U/L Total Protein 7.4 6.4-8.2 g/dL Albumin Level 3.7 3.4-5.0 g/dL Globulin 3.7 Albumin Globulin Ratio 1.0 Performing Lab: see note ML - [facility] LB LIPASE Reviewed date:07/21/2024 10:43:54 AM Interpretation: Performing Lab: Notes/Report: [facility] , Lipase 39.0 16.0-77.0 U/L Performing Lab: see note ML - [facility] LB D-DIMER Reviewed date:07/21/2024 10:43:54 AM Interpretation: Performing Lab: Notes/Report: [facility] , D Dimer 0.68 <=0.59 mg/L FEU RESULTS CALLED TO JAYCEE LARSON RN @BY Mirtha Oconnor at 2235 Increases in D-Dimer concentration observed with thromboembolic events can be variable due to localization, size, and age of the thrombus. Therefore, a thromboembolic event cannot be diagnosed with certainty on the basis of the reference range. D-Dimers may also be elevated for a variety of disorders including advanced age, , coronary disease, cancer, liver disease, infection, inflammation, hematoma, DIC, trauma, post-surgery, diabetes, thrombolytic or anticoagulant therapy, stress, and generalized hospitalization. Performing Lab: see note ML - [facility] LB CBC AUTO DIFF Reviewed date:07/21/2024 10:43:54 AM Interpretation: Performing Lab: Notes/Report: [facility] , White Blood Count 11.3 4.0-11.0 10 3/uL Red Blood Count 4.58 4.20-5.40 10 6/uL Hemoglobin 12.8 12.0-16.0 g/dL Hematocrit 38.1 36.0-48.0 % Mean Corpuscular Volume 83.2 81.0-99.0 fL Mean Corpuscular Hemoglobin 27.9 26.7-34.0 pg Mean Corpuscular HGB Conc 33.6 29.9-35.2 g/dL Red Cell Distribution Width 13.8 11.0-15.0 % Platelet Count 264 150-450 10 3/uL Mean Platelet Volume 10.2 9.5-13.5 fL Neutrophils Percent Auto 76.2 43.0-75.0 % Lymphocytes Percent Auto 15.6 20.5-60.0 % Monocytes Percent Auto 6.2 1.7-12.0 % Eosinophils Percent Auto 1.2 0.9-7.0 % Basophils Percent Auto 0.5 0.2-2.0 % Immature Granulocytes Pct Auto 0.3 0.0-0.5 % Neutrophils Absolute Auto 8.6 1.4-6.5 10 3/uL Lymphocytes Absolute Auto 1.8 1.2-3.8 10 3/uL Monocytes Absolute Auto 0.7 0.3-0.8 10 3/uL Eosinophils Absolute Auto 0.1 0.0-0.7 10 3/uL Basophils Absolute Auto 0.1 0.0-0.1 10 3/uL Immature Granulocytes Abs Auto 0.03 0.00-0.03 10 3/uL Performing Lab: see note ML - [facility] LB BNP Reviewed date:07/21/2024 10:43:54 AM Interpretation: Performing Lab: Notes/Report: [facility] , NT Pro B Type Natriuretic Pept 620.0 <=900.0 pg/mL Performing Lab: see note ML - [facility] LB Troponin I High Sensitivity Reviewed date:07/19/2024 12:16:47 PM Interpretation: Performing Lab: Notes/Report: [facility] , Troponin I High Sensitivity 12.5 4.0-51.3 pg/mL CUT-OFF POINTS HAVE BEEN ESTABLISHED BASED ON THE FOURTH UNIVERSAL DEFINITION OF MYOCARDIAL INFARCTION. THE UPPER REFERENCE LIMIT (URL) OF TROPONIN, DEFINED THE 99TH PERCENTILE OF cTnI DISTRIBUTION IN A REFERENCE POPULATION, HAS BEEN CONFIRMED THE DECISION THRESHOLD FOR VA DIAGNOSIS. 99TH PERCENTILE = 51.4 PG/ML NOTE: HIGH-SENSITIVITY TROPONIN ASSAY IS NOT INTENDED TO BE USED IN ISOLATION BUT SHOULD BE INTERPRETED IN CONJUNCTION WITH OTHER DIAGNOSTIC AND CLINICAL INFORMATION. Performing Lab: see note ML - [facility] LB UA (CLEAN or CATCH) TRAUMA SURGEON or M ICRO IF IND. Reviewed date:07/18/2024 08:49:46 PM Interpretation: Performing Lab: Notes/Report: [facility] , Color Urine LT. YELLOW YELLOW Clarity Urine CLEAR CLEAR Specific [place] Urine 1.015 1.005-1.025 pH Urine 6.0 5.0-9.0 Protein Urine TRACE NEG/TRACE mg/dL Glucose Urine UA NEGATIVE NEGATIVE mg/dL Bilirubin Urine NEGATIVE NEGATIVE Ketones Urine NEGATIVE NEGATIVE mg/dL Blood Urine NEGATIVE NEGATIVE Nitrite Urine NEGATIVE NEGATIVE Urobilinogen Urine 0.2 0.2-1.0 EU/dL Leukocyte Esterase Urine NEGATIVE NEGATIVE Urine Microscopic Indicated NO Performing Lab: see note ML - [facility] LB CBC AUTO DIFF Reviewed date:07/18/2024 08:49:46 PM Interpretation: Performing Lab: Notes/Report: [facility] , White Blood Count 9.1 4.0-11.0 10 3/uL Red Blood Count 4.30 4.20-5.40 10 6/uL Hemoglobin 11.7 12.0-16.0 g/dL Hematocrit 36.1 36.0-48.0 % Mean Corpuscular Volume 84.0 81.0-99.0 fL Mean Corpuscular Hemoglobin 27.2 26.7-34.0 pg Mean Corpuscular HGB Conc 32.4 29.9-35.2 g/dL Red Cell Distribution Width 14.2 11.0-15.0 % Platelet Count 233 150-450 10 3/uL Mean Platelet Volume 10.5 9.5-13.5 fL Neutrophils Percent Auto 68.3 43.0-75.0 % Lymphocytes Percent Auto 21.9 20.5-60.0 % Monocytes Percent Auto 7.0 1.7-12.0 % Eosinophils Percent Auto 1.9 0.9-7.0 % Basophils Percent Auto 0.5 0.2-2.0 % Immature Granulocytes Pct Auto 0.4 0.0-0.5 % Neutrophils Absolute Auto 6.2 1.4-6.5 10 3/uL Lymphocytes Absolute Auto 2.0 1.2-3.8 10 3/uL Monocytes Absolute Auto 0.6 0.3-0.8 10 3/uL Eosinophils Absolute Auto 0.2 0.0-0.7 10 3/uL Basophils Absolute Auto 0.1 0.0-0.1 10 3/uL Immature Granulocytes Abs Auto 0.04 0.00-0.03 10 3/uL Performing Lab: see note ML - [facility] LB Troponin I High Sensitivity Reviewed date:07/11/2024 02:45:52 PM Interpretation: Performing Lab: Notes/Report: [facility] , Troponin I High Sensitivity 8.0 4.0-51.3 pg/mL CUT-OFF POINTS HAVE BEEN ESTABLISHED BASED ON THE FOURTH UNIVERSAL DEFINITION OF MYOCARDIAL INFARCTION. THE UPPER REFERENCE LIMIT (URL) OF TROPONIN, DEFINED THE 99TH PERCENTILE OF cTnI DISTRIBUTION IN A REFERENCE POPULATION, HAS BEEN CONFIRMED THE DECISION THRESHOLD FOR VA DIAGNOSIS. 99TH PERCENTILE = 51.4 PG/ML NOTE: HIGH-SENSITIVITY TROPONIN ASSAY IS NOT INTENDED TO BE USED IN ISOLATION BUT SHOULD BE INTERPRETED IN CONJUNCTION WITH OTHER DIAGNOSTIC AND CLINICAL INFORMATION. Performing Lab: see note ML - [facility] Troponin I High Sensitivity Reviewed date:07/11/2024 02:45:52 PM Interpretation: Performing Lab: Notes/Report: [facility] , Troponin I High Sensitivity 9.1 4.0-51.3 pg/mL CUT-OFF POINTS HAVE BEEN ESTABLISHED BASED ON THE FOURTH UNIVERSAL DEFINITION OF MYOCARDIAL INFARCTION. THE UPPER REFERENCE LIMIT (URL) OF TROPONIN, DEFINED THE 99TH PERCENTILE OF cTnI DISTRIBUTION IN A REFERENCE POPULATION, HAS BEEN CONFIRMED THE DECISION THRESHOLD FOR VA DIAGNOSIS. 99TH PERCENTILE = 51.4 PG/ML NOTE: HIGH-SENSITIVITY TROPONIN ASSAY IS NOT INTENDED TO BE USED IN ISOLATION BUT SHOULD BE INTERPRETED IN CONJUNCTION WITH OTHER DIAGNOSTIC AND CLINICAL INFORMATION. Performing Lab: see note ML - [facility] Troponin I High Sensitivity Reviewed date:07/11/2024 02:45:52 PM Interpretation: Performing Lab: Notes/Report: [facility] , Troponin I High Sensitivity 8.4 4.0-51.3 pg/mL CUT-OFF POINTS HAVE BEEN ESTABLISHED BASED ON THE FOURTH UNIVERSAL DEFINITION OF MYOCARDIAL INFARCTION. THE UPPER REFERENCE LIMIT (URL) OF TROPONIN, DEFINED THE 99TH PERCENTILE OF cTnI DISTRIBUTION IN A REFERENCE POPULATION, HAS BEEN CONFIRMED THE DECISION THRESHOLD FOR VA DIAGNOSIS. 99TH PERCENTILE = 51.4 PG/ML NOTE: HIGH-SENSITIVITY TROPONIN ASSAY IS NOT INTENDED TO BE USED IN ISOLATION BUT SHOULD BE INTERPRETED IN CONJUNCTION WITH OTHER DIAGNOSTIC AND CLINICAL INFORMATION. Performing Lab: see note ML - [facility] LB Prothrombin Time INR Reviewed date:07/11/2024 02:45:52 PM Interpretation: Performing Lab: Notes/Report: [facility] , Prothrombin Time 9.9 9.0-11.6 sec INR 0.93 DESIRED INR: 2.0-3.0 CONDITIONS NOT LISTED BELOW 2.5-3.5 FOR PROSTHETIC HEART VALVE REPLACEMENT 2.5-3.5 RECURRENT THROMBOSIS Performing Lab: see note ML - [facility] PTT Reviewed date:07/11/2024 02:45:52 PM Interpretation: Performing Lab: Notes/Report: [facility] , Partial Thromboplastin Time 28.1 22.3-36.2 sec Performing Lab: see note ML - [facility] LB PROF CHEM 8 (BAS METB) Reviewed date:07/11/2024 02:45:52 PM Interpretation: Performing Lab: Notes/Report: [facility] , Sodium 140 136-145 mmol/L Potassium 3.3 3.5-5.1 mmol/L Chloride 103 98-107 mmol/L Carbon Dioxide 31.6 21.0-32.0 mmol/L Anion Gap 8.7 Glucose 112 74-106 mg/dL Blood Urea Nitrogen 18.0 7.0-18.0 mg/dL Creatinine 1.42 0.55-1.02 mg/dL Estimated GFR ( Candace 46 >=60 Estimated GFR (Non- Susi 38 >=60 BUN Creatinine Ratio 12.7 Calcium 9.0 8.5-10.1 mg/dL Performing Lab: see note ML - [facility] LB CBC AUTO DIFF Reviewed date:07/11/2024 02:45:52 PM Interpretation: Performing Lab: Notes/Report: [facility] , White Blood Count 8.5 4.0-11.0 10 3/uL Red Blood Count 4.51 4.20-5.40 10 6/uL Hemoglobin 12.2 12.0-16.0 g/dL Hematocrit 38.3 36.0-48.0 % Mean Corpuscular Volume 84.9 81.0-99.0 fL Mean Corpuscular Hemoglobin 27.1 26.7-34.0 pg Mean Corpuscular HGB Conc 31.9 29.9-35.2 g/dL Red Cell Distribution Width 14.5 11.0-15.0 % Platelet Count 255 150-450 10 3/uL Mean Platelet Volume 10.4 9.5-13.5 fL Neutrophils Percent Auto 56.3 43.0-75.0 % Lymphocytes Percent Auto 31.6 20.5-60.0 % Monocytes Percent Auto 7.7 1.7-12.0 % Eosinophils Percent Auto 3.4 0.9-7.0 % Basophils Percent Auto 0.9 0.2-2.0 % Immature Granulocytes Pct Auto 0.1 0.0-0.5 % Neutrophils Absolute Auto 4.8 1.4-6.5 10 3/uL Lymphocytes Absolute Auto 2.7 1.2-3.8 10 3/uL Monocytes Absolute Auto 0.7 0.3-0.8 10 3/uL Eosinophils Absolute Auto 0.3 0.0-0.7 10 3/uL Basophils Absolute Auto 0.1 0.0-0.1 10 3/uL Immature Granulocytes Abs Auto 0.01 0.00-0.03 10 3/uL Performing Lab: see note ML - [facility] LB Troponin I High Sensitivity Reviewed date:06/29/2024 06:16:08 PM Interpretation: Performing Lab: Notes/Report: [facility] , Troponin I High Sensitivity 123.2 4.0-51.3 pg/mL RESULTS CALLED TO KATHERINE MCELROY/MEGAN IN MED SURG CUT-OFF POINTS HAVE BEEN ESTABLISHED BASED ON THE FOURTH UNIVERSAL DEFINITION OF MYOCARDIAL INFARCTION. THE UPPER REFERENCE LIMIT (URL) OF TROPONIN, DEFINED THE 99TH PERCENTILE OF cTnI DISTRIBUTION IN A REFERENCE POPULATION, HAS BEEN CONFIRMED THE DECISION THRESHOLD FOR VA DIAGNOSIS. 99TH PERCENTILE = 51.4 PG/ML NOTE: HIGH-SENSITIVITY TROPONIN ASSAY IS NOT INTENDED TO BE USED IN ISOLATION BUT SHOULD BE INTERPRETED IN CONJUNCTION WITH OTHER DIAGNOSTIC AND CLINICAL INFORMATION. Performing Lab: see note ML - [facility] LB Troponin I High Sensitivity Reviewed date:06/29/2024 06:16:08 PM Interpretation: Performing Lab: Notes/Report: [facility] , Troponin I High Sensitivity 65.1 4.0-51.3 pg/mL RESULTS CALLED TO KATHERINE MCELROY/MEGAN IN MED SURG CUT-OFF POINTS HAVE BEEN ESTABLISHED BASED ON THE FOURTH UNIVERSAL DEFINITION OF MYOCARDIAL INFARCTION. THE UPPER REFERENCE LIMIT (URL) OF TROPONIN, DEFINED THE 99TH PERCENTILE OF cTnI DISTRIBUTION IN A REFERENCE POPULATION, HAS BEEN CONFIRMED THE DECISION THRESHOLD FOR VA DIAGNOSIS. 99TH PERCENTILE = 51.4 PG/ML NOTE: HIGH-SENSITIVITY TROPONIN ASSAY IS NOT INTENDED TO BE USED IN ISOLATION BUT SHOULD BE INTERPRETED IN CONJUNCTION WITH OTHER DIAGNOSTIC AND CLINICAL INFORMATION. Performing Lab: see note ML - [facility] LB Troponin I High Sensitivity Reviewed date:06/29/2024 06:16:08 PM Interpretation: Performing Lab: Notes/Report: [facility] , Troponin I High Sensitivity 8.7 4.0-51.3 pg/mL CUT-OFF POINTS HAVE BEEN ESTABLISHED BASED ON THE FOURTH UNIVERSAL DEFINITION OF MYOCARDIAL INFARCTION. THE UPPER REFERENCE LIMIT (URL) OF TROPONIN, DEFINED THE 99TH PERCENTILE OF cTnI DISTRIBUTION IN A REFERENCE POPULATION, HAS BEEN CONFIRMED THE DECISION THRESHOLD FOR VA DIAGNOSIS. 99TH PERCENTILE = 51.4 PG/ML NOTE: HIGH-SENSITIVITY TROPONIN ASSAY IS NOT INTENDED TO BE USED IN ISOLATION BUT SHOULD BE INTERPRETED IN CONJUNCTION WITH OTHER DIAGNOSTIC AND CLINICAL INFORMATION. Performing Lab: see note ML - [facility] US renal doppler Reviewed date:06/29/2024 06:16:08 PM Interpretation: Performing Lab: Notes/Report: Source Facility: [place] [address] [place] [address] Ultrasound Report Signed Patient: ABY MADRIGAL MR#: [id number] : 1965 Acct:[id number] Age/Sex: 59 / F ADM Date: 06/29/24 Loc: [place] 216-[address]: Kendra Moran M.D. Ordering Physician: Kendra Moran M.D. Date of Service: 06/29/24 Procedure(s): US renal doppler Accession Number(s): [id number] cc: Kendra Moran M.D. [place] [address] Patient Name: ABY MADRIGAL MRN: [id number] date: 1965 Sex: F Assigned Patient Location: [place] Current Patient Location: [place] Accession/Order Number: [id number] Exam Date: 06/29/2024 08:20 Report Date: 06/29/2024 10:29 At the request of: KENDRA MORAN Procedure: US renal doppler Ultrasound kidneys, bilateral, with renal Doppler CLINICAL: Uncontrolled hypertension for 3 months, chest pain TECHNIQUE: Transabdominal ultrasound marin-scale imaging of both kidneys was performed with Doppler, waveform analysis and peak systolic velocity measurements of the renal arteries. FINDINGS: Comparison: None. Both kidneys demonstrate normal echotexture and echogenicity. The right kidney measures 14.4 x 5.5 x 5.0 cm. There is no hydronephrosis of right kidney. The left kidney measures 9.9 x 4.2 x 4.5 cm. With cortical lobulation and scarring No hydronephrosis of left kidney. The bladder is moderately distended with prevoid volume of 195 cc, grossly normal. The abdominal aorta measures 99 cm/sec. The proximal, mid and distal portions of the right renal artery measure peak systolic velocities of 94 cm/sec, 225 cm/sec, and 283 cm/sec, respectively. This results in renal artery to aortic ratios of 0.94, 2.27, and 2.86, respectively. The peak systolic velocities of the renal arteries and renal to aortic ratios are elevated. The proximal, mid and distal portions of the left renal artery measure peak systolic velocities of 343 cm/sec, 274 cm/sec, and 214 cm/sec, respectively. This results in renal artery to aortic ratios of 3.46, 2.77, and 2.16, respectively. The peak systolic velocities of the renal arteries and renal to aortic ratios are elevated. There is increased echogenicity of the visualized liver. US/US renal doppler IMPRESSION: 1. Elevated velocities of both renal arteries reflecting hemodynamically significant renal artery stenosis bilaterally. Suspected < 60% diameter reduction of right renal artery and > 60% diameter reduction of left renal artery. 2. Lobulated cortical scarring of left kidney. No hydronephrosis on either side. 3. Fatty infiltration of the liver. Reference: J Ultrasound. 2009 Dec: 12(4): 133-143. Based on classification of RA stenosis by color-Doppler US from [place] and [place] (Am J Hypertens, 1996). Normal renal artery diameter: RA PSV < 180 cm/sec, RAR < 3.5 < 60% diameter reduction: RA PSV > 180 cm/sec, RAR < 3.5 > 60% diameter reduction: RA PSV > 180 cm/sec, RAR > 3.5 Occlusion: No PSV signal, RAR indeterminate RI > 0.33 - normal; RI 0.23 - borderline; <0.23 increased resistance within kidney Electronically authenticated by: BOY STONER Date: 06/29/2024 10:29 Dictated By: Boy Stoner M.D. Signed By: 06/29/24 1031 DD/ 1029 TD/TT: [employer] Operator: [place] [address] Ultrasound Report Signed Patient: ABY MADRIGAL MR#: [id number] : 1965 Acct:[id number] Age/Sex: 59 / F ADM Date: 06/29/24 Loc: 216-[address]: Zhanna Moran M.D. Ordering Physician: Kendra Moran M.D. Date of Service: 06/29/24 Procedure(s): US betty al doppler Accession Number(s): [id number] cc: Kendra Moran M.D. [address] [address] Patient Name: ABY MADRIGAL MRN: [id number] date: 1965 Sex: F Assigned Patient Location: [place] Current Patient Loca tion: Accession/Order Numb er: [id number] Exam Date: 06/29/2024 08:20 Report Date: 06/29/2024 10:29 At the request of: KENDRA MORAN Procedure: US renal doppler Ultrasound kidneys, bilateral, with renal Doppler CLINICAL: Uncontroll ed hypertension for 3 months, chest pain TECHNIQUE: Transabdo roxana ultrasound marin-scale imaging of both kidneys was performed with Doppl er, waveform analysis and peak systolic velocity measurements of the renal arteries. FINDINGS: Comparison : None. Both kidneys demonst rate normal echotexture and echogenicity. The right kidney measures 14.4 x 5.5 x 5.0 cm. There is no hydronephrosis of right kidney. The left kidney james ures 9.9 x 4.2 x 4.5 cm. With cortical lobulation and scarring No hydronephrosis of left kidney. The bladder is moder ately distended with prevoid volume of 195 cc, grossly normal. The abdominal aorta measures 99 cm/sec. The proximal, mid and distal portions of the right renal a rtery measure peak systolic velocities of 94 cm/sec, 225 cm/sec, and 283 cm/s ec, respectively. This results in renal artery to aortic ratios of 0.94, 2.27 , and 2.86, respectively. The peak systolic velocities of the renal arteries a nd renal to aortic ratios are elevated. The proximal, mid an d distal portions of the left renal artery measure peak systolic velocities of 343 cm/sec, 274 cm/sec, and 214 cm/sec, respectively. This results in anu l artery to aortic ratios of 3.46, 2.77, and 2.16, respectively. The pe ak systolic velocities of the renal arteries and renal to aortic ratios are elevated. There is increased echogenicity of the visualized liver. U S/US renal doppler IMPRESSION: 1. Elevated velociti es of both renal arteries reflecting hemodynamically significant renal ar jay stenosis bilaterally. Suspected < 60% diameter reduction of right r enal artery and > 60% diameter reduction of left renal artery. 2. Lobulated cortica l scarring of left kidney. No hydronephrosis on either side. 3. Fatty infiltratio n of the liver. Reference: J Ultraso und. 2008 Dec: 12(4): 133-143. Based on classification of RA stenosis by color-Doppler US from [place] and [place] (Am J Hypertens, 1996). Normal renal artery diameter: RA PSV < 180 cm/sec, RAR < 3.5 < 60% diameter reduc tion: RA PSV > 180 cm/sec, RAR < 3.5 > 60% diameter reduc tion: RA PSV > 180 cm/sec, RAR > 3.5 Occlusion: No PSV si gnal, RAR indeterminate RI > 0.33 - normal; RI 0.23 - borderline; <0.23 increased resistance within kidney Electronically authenticated by: BOY STONER Date: 06/29/2024 10:29 Dictated By: Jay Stoner M.D. Signed By: 06/29/24 1031 DD/ 1029 TD/TT: [employer] Operator: DIANDRA echo doppler complete Reviewed date:06/29/2024 06:16:08 PM Interpretation: Performing Lab: Notes/Report: Source Facility: [facility]-[address] [place] [address] [place] [address] Cardiology Report Signed Patient: ABY MADRIGAL MR#: [id number] : 1965 Acct:[id number] Age/Sex: 59 / F ADM Date: 06/29/24 Loc: [place] 216-[address]: Kendra Moran M.D. Ordering Physician: Kendra Moran M.D. Date of Service: 06/29/24 Procedure(s): CA echo doppler complete Accession Number(s): [id number] cc: Kendra Moran M.D. Patient Name: ABY MADRIGAL MR#: [id number] : 1965 Exam Date: 06/29/2024 Ordering Doctor: DR Kendra Moran . ECHOCARDIOGRAM REPORT PROCEDURE: CA ECHO DOPPLER COMPLETE INDICATIONS: hypertensive urgency, cp COMPARISON: None. DESCRIPTION: COMPLETE ECHOCARDIOGRAM Real-time transthoracic echocardiography with 2D, M-mode, spectral and color flow Doppler performed. QUALITY: Technical quality was good. LEFT VENTRICLE: Normal chamber size. Moderate concentric left ventricular hypertrophy. Significantly thickened septum (1.6 cm). Left ventricular obstruction, mild-moderate measuring at 27 mmHg with Valsalva, likely related to hyperdynamic systolic function LV EF: Hyperdynamic left ventricular ejection fraction, (75-80%). DIASTOLIC: Grade I diastolic dysfunction. ATRIAL SEPTUM: LEFT ATRIUM: Normal chamber size. RIGHT ATRIUM: Normal chamber size. RIGHT VENTRICLE: Normal chamber size. Normal right ventricular systolic function. TRICUSPID VALVE : Normal mobility and thickness. No stenosis with trivial regurgitation. Doppler studies reveal mildly (35-45) elevated right sided pressures. RVSP 40 mmHg MITRAL VALVE: Normal mobility and thickness. No evidence of mitral valve stenosis. There is no mitral annular calcification. No mitral regurgitation. AORTIC VALVE: Normal trileaflet appearance. No visible sclerosis. Normal leaflet mobility. No evidence of aortic valve stenosis. No aortic regurgitation. AORTIC ROOT: Normal diameter and appearance. PULMONIC VALVE: Normal thickness and mobility. No stenosis. Trivial regurgitation. PERICARDIUM: Trivial pericardial effusion. IVC: Collapses with inspirations. PLEURA: CONCLUSION: 1. Moderate concentric left ventricular hypertrophy with significantly thickened septal measuring 1.6 cm. Hyperdynamic left ventricular systolic function with likely mid cavitary acceleration of flow and systolic gradient of 27 mmHg with Valsalva maneuver. 2. Normal right ventricular size and systolic function. 3. Mild diastolic dysfunction. 4. No significant valvular dysfunction. 5. Mildly elevated right-sided pressures. 6. Depending on the clinical picture, further imaging with cardiac MRI might be helpful to further characterize the cardiac phenotype. Adult Echocardiography Procedure Report Left Ventricle LVEDD (3.7 - 5.6 cm): 4.10 cm LVESD (2.2 - 4.0 cm): 2.15 cm LVIVS thickness (0.6 - 1.2 cm): 1.58 cm LVPW thickness (0.5 - 1.0 cm): 1.25 cm e': 0.06 m/s E - e': 7.78 LVOT Max Gradient: 3.82 mm[Hg] LVOT Area (cm2): 0.98 m/s Peak Velocity (LVOT): 0.98 m/s Mean Velocity (LVOT): 0.59 m/s LVOT Diameter 2.43 cm Left Atrium Left Atrium Systolic Dimension: 4.08 cm Mitral Valve MV E to A Ratio: 0.53 Mitral Valve A-Wave Peak Velocity: 0.85 m/s Mitral Valve E-Wave Peak Velocity: 0.45 m/s Right Ventricle Aorta AO Root Diam: 2.98 cm Aortic Valve AoV Area (Peak David): 2.59 cm2, 2.59 cm2 AoV Area (VTI): 3.00 cm2, 3.00 cm2 Peak Velocity(Antegrade Flow): 1.75 m/s Peak Gradient(Antegrade Flow): 12.29 mm[Hg] Mean Velocity(Antegrade Flow): 0.90 m/s Mean Gradient(Antegrade Flow): 4.71 mm[Hg] Velocity Time Integral: 39.80 cm Tricuspid Valve Peak Velocity (Regurgitant Flow): 2.93 m/s, 3.02 m/s Pulmonic Valve Mean Gradient: 4.58 mm[Hg] Mean Velocity: 1.00 m/s Peak Velocity: 1.46 m/s, 1.32 m/s Peak Gradient: 6.98 mm[Hg], 8.53 mm[Hg] Right Atrium Dictated by: Gomez Spence M.D. on 06/29/2024 at 13:42 Approved by: Gomez Spence M.D. on 06/29/2024 at 13:46 Dictated By: GOMEZ SPENCE Signed By: 06/29/24 1347 DD/ 1346 TD/TT: [employer] Operator: [place] [address] Cardiology Report Signed Patient: ABY MADRIGAL MR#: [id number] : 1965 Acct:[id number] Age/Sex: 59 / F ADM Date: 06/29/24 Loc: MS 216-[address]: Zhanna Moran M.D. Ordering Physician: Kendra Moran M.D. Date of Service: 06/29/24 Procedure(s): CA ech o doppler complete Accession Number(s): [id number] cc: Kendra Moran M.D. Patient Name: ABY MADRIGAL MR#: [id number] : 1965 Exam Date: 06/29/2024 Ordering Doctor: DR Kendra Moran . ECHOCARDIOGRAM REPORT PROCEDURE: CA ECHO DOPPLER COMPLETE INDICATIONS: hyperte nsive urgency, cp COMPARISON: None. DESCRIPTION: COMPLET E ECHOCARDIOGRAM Real-time transthoracic echocardiography wit h 2D, M-mode, spectral and color flow Doppler performed. QUALITY: Technical quality was good. LEFT VENTRICLE: Norm al chamber size. Moderate concentric left ventricular hypertrophy. Significantly thickened septum (1.6 cm). Left ventricular obstruction, mild-moderate measuring at 27 mmHg with Valsalva, likely related to hyperdynamic syst olic function LV EF: Hyperdynamic left ventricular ejection fraction, (75-80%). DIASTOLIC: Grade I diastolic dysfunction. ATRIAL SEPTUM: LEFT ATRIUM: Normal chamber size. RIGHT ATRIUM: Normal chamber size. RIGHT VENTRICLE: [place] chamber size. Normal right ventricular systolic function. TRICUSPID VALVE : No rmal mobility and thickness. No stenosis with trivial regurgitation. Doppl er studies reveal mildly (35-45) elevated right sided pressures. RVSP 40 mmHg MITRAL VALVE: Normal mobility and thickness. No evidence of mitral valve stenosis. There is n o mitral annular calcification. No mitral regurgitation. AORTIC VALVE: Normal trileaflet appearance. No visible sclerosis. Normal leaflet mobility. No evidence of aortic valve stenosis. No aortic regurgitation. AORTIC ROOT: Normal diameter and appearance. PULMONIC VALVE: Norm al thickness and mobility. No stenosis. Trivial regurgitation. PERICARDIUM: Trivial pericardial effusion. IVC: Collapses with inspirations. PLEURA: CONCLUSION: 1. Moderate concentr ic left ventricular hypertrophy with significantly thickened septal measuring 1.6 cm. Hyperdynamic left ventricular systolic function with likely mid cavitary acceleration of flow and systolic gradient of 27 mmHg with Vals sethi maneuver. 2. Normal right ventricular size and systolic function. 3. Mild diastolic dysfunction. 4. No significant valvular dysfunction. 5. Mildly elevated right-sided pressures. 6. Depending on the clinical picture, further imaging with cardiac MRI might be helpful to furthe r characterize the cardiac phenotype. Adult Echocardiograp hy Procedure Report Left Ventricle LVEDD (3.7 - 5.6 cm) : 4.10 cm LVESD (2.2 - 4.0 cm) : 2.15 cm LVIVS thickness (0.6 - 1.2 cm): 1.58 cm LVPW thickness (0.5 - 1.0 cm): 1.25 cm e': 0.06 m/s E - e': 7.78 LVOT Max Gradient: 3 .82 mm[Hg] LVOT Area (cm2): 0.98 m/s Peak Velocity (LVOT) : 0.98 m/s Mean Velocity (LVOT) : 0.59 m/s LVOT Diameter 2.43 cm Left Atrium Left Atrium Systolic Dimension: 4.08 cm Mitral Valve MV E to A Ratio: 0.53 Mitral Valve A-Wave Peak Velocity: 0.85 m/s Mitral Valve E-Wave Peak Velocity: 0.45 m/s Right Ventricle Aorta AO Root Diam: 2.98 cm Aortic Valve AoV Area (Peak David): 2.59 cm2, 2.59 cm2 AoV Area (VTI): 3.00 cm2, 3.00 cm2 Peak Velocity(Antegr fausto Flow): 1.75 m/s Peak Gradient(Antegr fausto Flow): 12.29 mm[Hg] Mean Velocity(Antegr fausto Flow): 0.90 m/s Mean Gradient(Antegr fausto Flow): 4.71 mm[Hg] Velocity Time Integr al: 39.80 cm Tricuspid Valve Peak Velocity (Regurgitant Flow): 2.93 m/s, 3.02 m/s Pulmonic Valve Mean Gradient: 4.58 mm[Hg] Mean Velocity: 1.00 m/s Peak Velocity: 1.46 m/s, 1.32 m/s Peak Gradient: 6.98 mm[Hg], 8.53 mm[Hg] Right Atrium Dictated by: Gomez Spence M.D. on 06/29/2024 at 13:42 Approved by: Gomez Spence M.D. on 06/29/2024 at 13:46 Dictated By: GOMEZ SPENCE Signed By: 06/29/24 1347 DD/ 1346 TD/TT: [employer] Operator: KIM Reviewed date:07/02/2024 10:37:00 AM Interpretation: Performing Lab: Notes/Report: [facility] , Partial Thromboplastin Time 21.5 22.3-36.2 sec Performing Lab: see note ML - [facility] LB Aspergillus Ab, Qn, DID Reviewed date:07/01/2024 01:06:18 PM Interpretation: Performing Lab: Notes/Report: [facility] , Aspergillus fumigatus Negative Neg:<1:1 Aspergillus flavus Negative Neg:<1:1 Aspergillus niger Negative Neg:<1:1 Performing Lab: see note LC - [facility] LB Blastomyces Abs, Qn, DID Reviewed date:07/01/2024 01:10:06 PM Interpretation: Performing Lab: Notes/Report: [facility] , Blastomyces Abs, Qn, DID Negative Neg:<1:1 Performed at: [address] [id number] Cabana Attendant: Kelsey Ceron MD, Phone: [phone] Performing Lab: see note LC - [facility] LB Histoplasma capsulatum Abs. Reviewed date:07/01/2024 01:06:15 PM Interpretation: Performing Lab: Notes/Report: [facility] , Histoplasma Mycelial CF Ab. Negative Neg:<1:2 Histoplasma Yeast CF Ab Negative Neg:<1:2 Performed at: [address] [id number] Cabana Attendant: Kelsey Ceron MD, Phone: [phone] Performing Lab: see note LC - [facility] LB Histoplasma Gal'priyanka Ag Ur Reviewed date:06/28/2024 04:24:32 PM Interpretation: Performing Lab: Notes/Report: URINE [facility] , Histoplasma Gal'priyanka Ag Ur Negative <0.2 ng/mL Performed at: [address] [id number] Cabana Attendant: Kelsey Ceron MD, Phone: [phone] Performing Lab: see note LC - [facility] LB Anti-CCP Ab, IgG/IgA Reviewed date:06/29/2024 06:52:06 AM Interpretation: Performing Lab: Notes/Report: [facility] , Anti-CCP Ab, IgG/IgA 3 0-19 units Negative <20 Weak positive 20 - 39 Moderate positive 40 - 59 Strong positive >59 Performed at: [address] [id number] Cabana Attendant: Gopi Romeo PhD, Phone: [phone] Performing Lab: see note [facility] LB Antiscleroderma-70 Antibodie s Reviewed date:06/29/2024 06:52:09 AM Interpretation: Performing Lab: Notes/Report: [facility] , Antiscleroderma-70 Antibodies <0.2 0.0-0.9 AI Performing Lab: see note [facility] LB Angiotensin-Converting Enzym e Reviewed date:06/29/2024 06:52:12 AM Interpretation: Performing Lab: Notes/Report: [facility] , Angiotensin-Converting Enzyme 21 14-82 U/L Performed at: [address] [id number] Cabana Attendant: Gopi Romeo PhD, Phone: [phone] Performing Lab: see note [facility] LB RHEUMATOID FACTOR Reviewed date:06/29/2024 06:52:23 AM Interpretation: Performing Lab: Notes/Report: [facility] , Rheumatoid Factor (RF) <10.0 <14.0 IU/mL Performed at: [address] [id number] Cabana Attendant: Gopi Romeo PhD, Phone: [phone] Performing Lab: see note [facility] LB Troponin I High Sensitivity Reviewed date:06/18/2024 11:59:40 AM Interpretation: Performing Lab: Notes/Report: [facility] , Troponin I High Sensitivity 10.7 4.0-51.3 pg/mL CUT-OFF POINTS HAVE BEEN ESTABLISHED BASED ON THE FOURTH UNIVERSAL DEFINITION OF MYOCARDIAL INFARCTION. THE UPPER REFERENCE LIMIT (URL) OF TROPONIN, DEFINED THE 99TH PERCENTILE OF cTnI DISTRIBUTION IN A REFERENCE POPULATION, HAS BEEN CONFIRMED THE DECISION THRESHOLD FOR VA DIAGNOSIS. 99TH PERCENTILE = 51.4 PG/ML NOTE: HIGH-SENSITIVITY TROPONIN ASSAY IS NOT INTENDED TO BE USED IN ISOLATION BUT SHOULD BE INTERPRETED IN CONJUNCTION WITH OTHER DIAGNOSTIC AND CLINICAL INFORMATION. Performing Lab: see note ML - [facility] UA RANDOM W or MICROSCOPIC Reviewed date:06/18/2024 11:59:40 AM Interpretation: Performing Lab: Notes/Report: [facility] , Color Urine LT. YELLOW YELLOW Clarity Urine CLEAR CLEAR Specific [place] Urine <=1.005 1.005-1.025 pH Urine 6.0 5.0-9.0 Protein Urine NEGATIVE NEG/TRACE mg/dL Glucose Urine UA NEGATIVE NEGATIVE mg/dL Bilirubin Urine NEGATIVE NEGATIVE Ketones Urine NEGATIVE NEGATIVE mg/dL Blood Urine NEGATIVE NEGATIVE Nitrite Urine NEGATIVE NEGATIVE Urobilinogen Urine 0.2 0.2-1.0 EU/dL Leukocyte Esterase Urine NEGATIVE NEGATIVE WBC Urine 2-5 NONE SEEN #/HPF RBC Urine 0-2 0-2 #/HPF Bacteria Urine NONE SEEN NONE SEEN #/HPF Mucus Urine NONE SEEN NONE SEEN Squamous Epithelial Cell Urine FEW NONE/RARE #/LPF Crystals Seen? None Seen None Seen #/HPF Cast Seen? NONE SEEN NONE SEEN #/LPF Performing Lab: see note ML - [facility] LB PROF CHEM 8 (BAS METB) Reviewed date:06/18/2024 11:59:40 AM Interpretation: Performing Lab: Notes/Report: [facility] , Sodium 135 136-145 mmol/L Potassium 3.0 3.5-5.1 mmol/L Chloride 99 98-107 mmol/L Carbon Dioxide 27.6 21.0-32.0 mmol/L Anion Gap 11.4 Glucose 154 74-106 mg/dL Blood Urea Nitrogen 19.0 7.0-18.0 mg/dL Creatinine 1.19 0.55-1.02 mg/dL Estimated GFR ( Candace 56 >=60 Estimated GFR (Non- Susi 46 >=60 BUN Creatinine Ratio 16.0 Calcium 9.1 8.5-10.1 mg/dL Performing Lab: see note ML - [facility] CBC AUTO DIFF Reviewed date:06/18/2024 11:59:40 AM Interpretation: Performing Lab: Notes/Report: [facility] , White Blood Count 8.4 4.0-11.0 10 3/uL Red Blood Count 5.04 4.20-5.40 10 6/uL Hemoglobin 13.7 12.0-16.0 g/dL Hematocrit 42.9 36.0-48.0 % Mean Corpuscular Volume 85.1 81.0-99.0 fL Mean Corpuscular Hemoglobin 27.2 26.7-34.0 pg Mean Corpuscular HGB Conc 31.9 29.9-35.2 g/dL Red Cell Distribution Width 14.6 11.0-15.0 % Platelet Count 236 150-450 10 3/uL Mean Platelet Volume 10.5 9.5-13.5 fL Neutrophils Percent Auto 58.3 43.0-75.0 % Lymphocytes Percent Auto 33.4 20.5-60.0 % Monocytes Percent Auto 6.0 1.7-12.0 % Eosinophils Percent Auto 1.4 0.9-7.0 % Basophils Percent Auto 0.7 0.2-2.0 % Immature Granulocytes Pct Auto 0.2 0.0-0.5 % Neutrophils Absolute Auto 4.9 1.4-6.5 10 3/uL Lymphocytes Absolute Auto 2.8 1.2-3.8 10 3/uL Monocytes Absolute Auto 0.5 0.3-0.8 10 3/uL Eosinophils Absolute Auto 0.1 0.0-0.7 10 3/uL Basophils Absolute Auto 0.1 0.0-0.1 10 3/uL Immature Granulocytes Abs Auto 0.02 0.00-0.03 10 3/uL Performing Lab: see note ML - [facility] LB XR chest 1V Reviewed date:08/17/2024 06:37:37 PM Interpretation: Performing Lab: Notes/Report: Source Facility: [facility]-[address] [place] [address] [place] [address] XRay Report Signed Patient: ABY MADRIGAL MR#: [id number] : 1965 Acct:[id number] Age/Sex: 59 / F ADM Date: 08/17/24 Loc: ER Attending Dr: Ordering Physician: Jose Long M.D. Date of Service: 08/17/24 Procedure(s): XR chest 1V Accession Number(s): [id number] cc: Kendra Moran M.D.; Jose Long M.D. [address] [address] Patient Name: ABY MADRIGAL MRN: [id number] date: 1965 Sex: F Assigned Patient Location: ER Current Patient Location: ER Accession/Order Number: [id number] Exam Date: 08/17/2024 16:18 Report Date: 08/17/2024 16:37 At the request of: JOSE LONG Procedure: XR chest 1V PORTABLE CHEST X-RAY. INDICATION: Cough. COMPARISON: 07/31/2024 TECHNIQUE: Single AP portable chest radiograph. FINDINGS: TUBES AND LINES: None. LUNGS: There is a left basilar focal opacity. PLEURA: No effusions or pneumothorax. HEART AND MEDIASTINUM: Within normal limits for portable technique. OSSEOUS STRUCTURES: No acute abnormality. XR/XR chest 1V IMPRESSION: Left basilar focal opacity which may represent atelectasis or pneumonia. Correlate clinically. Electronically authenticated by: ESTUARDO TURCIOS Date: 08/17/2024 16:37 Dictated By: Estuardo Turcios M.D. Signed By: 08/17/24 163 DD/ 1637 TD/TT: [employer] Operator: [place] [address] XRay Report Signed Patient: ABY MADRIGAL MR#: [id number] : 1965 Acct:[id number] Age/Sex: 59 / F ADM Date: 08/17/24 Loc: ER Attending Dr: Ordering Physician: Jose Long M.D. Date of Service: 08/17/24 Procedure(s): XR chest 1V Accession Number(s): [id number] cc: Kendra Moran M.D. ; Jose Long M.D. [address] [address] Patient Name: ABY MADRIGAL MRN: [id number] date: 1965 Sex: F Assigned Patient Location: ER Current Patient Loca tion: ER Accession/Order Numb er: [id number] Exam Date: 08/17/2024 16:18 Report Date: 08/17/2024 16:37 At the request of: JOSE LONG Procedure: XR chest 1V PORTABLE CHEST X-RAY. INDICATION: Cough. COMPARISON: 07/31/2024 TECHNIQUE: Single AP portable chest radiograph. FINDINGS: TUBES AND LINES: None. LUNGS: There is a le ft basilar focal opacity. PLEURA: No effusions or pneumothorax. HEART AND MEDIASTINU M: Within normal limits for portable technique. OSSEOUS STRUCTURES: No acute abnormality. X R/XR chest 1V IMPRESSION: Left basilar focal opacity which may represent atelectasis or pneumonia. Correlate clinically. Electronically authenticated by: ESTUARDO TURCIOS Date: 08/17/2024 16:37 Dictated By: Kristyn Turcios M.D. Signed By: 08/17/24 163 DD/ 163 TD/TT: [employer] Operator: ECG 12 lead Reviewed date:08/06/2024 11:52:44 AM Interpretation: Performing Lab: Notes/Report: Source Facility: [place] [address] Electrocardiograph Report Signed Patient: AYB MADRIGAL MR#: [id number] : 1965 Acct:[id number] Age/Sex: 59 / F ADM Date: 07/31/24 Loc: MS 219-[address]: Kendra Moran M.D. Ordering Physician: Jose Long M.D. Date of Service: 07/31/24 Procedure(s): ECG 12 lead Accession Number(s): [id number] cc: [facility] Test Date: 2024-07-31 Pat Name: ABY MADRIGAL Department: Room: - Gender: Female Demographic Analyst: : 1965 Requested By: KENDRA MORAN Order Number: [id number] Reading MD: AGUILAR MAN Measurements Intervals [place] Rate: 85 P: 58 IA: 168 QRS: 26 QRSD: 88 T: 109 QT: 396 QTc: 438 Interpretive Statements 1100 Sinus rhythm [address] depression 4564 Twave abnormality, possible lateral ischemia 9150 abnormal ECG Electronically Signed On 08-03-2024 22:21:55 EDT by AGUILAR MAN Dictated By: Aguilar Man D.O. Signed By: 08/03/242221 DD/ 06 TD/TT: [employer] Operator: [place] [address] Electrocardiograph Report Signed Patient: ABY MADRIAGL MR#: [id number] : 1965 Acct:[id number] Age/Sex: 59 / F ADM Date: 07/31/24 Loc: MS 219-[address]: Zhanna Moran M.D. Ordering Physician: Jose Long M.D. Date of Service: 07/31/24 Procedure(s): ECG 12 lead Accession Number(s): [id number] cc: [facility] Test Date: 2024-07-31 Pat Name: ABY MADRIGAL Department: 48 Room: - Gender: Female Demographic Analyst: : 1965 Requ ested By: KENDRA MORAN Order Number: [id number] Reading MD: AGUILAR MAN Measurements Intervals [place] Rate: 85 P: 58 IA: 168 QRS: 26 QRSD: 88 T: 109 QT: 396 QTc: 438 Interpretive Statements 1100 Sinus rhythm [address] depression 4564 Twave abnormali ty, possible lateral ischemia 9150 abnormal ECG Electronically Devora d On 08-03-2024 22:21:55 EDT by AGUILAR MAN Dictated By: Aguilar Man D.O. Signed By: 08/03/242221 DD/ 06 TD/TT: [employer] Operator: CBC AUTO DIFF Reviewed date:06/13/2024 09:04:51 AM Interpretation: Performing Lab: Notes/Report: [facility] , White Blood Count 6.7 4.0-11.0 10 3/uL Red Blood Count 4.97 4.20-5.40 10 6/uL Hemoglobin 13.6 12.0-16.0 g/dL Hematocrit 42.3 36.0-48.0 % Mean Corpuscular Volume 85.1 81.0-99.0 fL Mean Corpuscular Hemoglobin 27.4 26.7-34.0 pg Mean Corpuscular HGB Conc 32.2 29.9-35.2 g/dL Red Cell Distribution Width 14.5 11.0-15.0 % Platelet Count 236 150-450 10 3/uL Mean Platelet Volume 10.0 9.5-13.5 fL Neutrophils Percent Auto 63.2 43.0-75.0 % Lymphocytes Percent Auto 26.5 20.5-60.0 % Monocytes Percent Auto 6.3 1.7-12.0 % Eosinophils Percent Auto 3.0 0.9-7.0 % Basophils Percent Auto 0.9 0.2-2.0 % Immature Granulocytes Pct Auto 0.1 0.0-0.5 % Neutrophils Absolute Auto 4.2 1.4-6.5 10 3/uL Lymphocytes Absolute Auto 1.8 1.2-3.8 10 3/uL Monocytes Absolute Auto 0.4 0.3-0.8 10 3/uL Eosinophils Absolute Auto 0.2 0.0-0.7 10 3/uL Basophils Absolute Auto 0.1 0.0-0.1 10 3/uL Immature Granulocytes Abs Auto 0.01 0.00-0.03 10 3/uL Performing Lab: see note ML - [facility] LB LIPASE Reviewed date:11/12/2024 02:05:43 PM Interpretation: Performing Lab: Notes/Report: [facility] , Lipase 60.0 16.0-77.0 U/L Performing Lab: see note ML - [facility] LB CBC AUTO DIFF Reviewed date:11/12/2024 02:05:43 PM Interpretation: Performing Lab: Notes/Report: [facility] , White Blood Count 6.4 4.0-11.0 10 3/uL Red Blood Count 4.50 4.20-5.40 10 6/uL Hemoglobin 11.7 12.0-16.0 g/dL Hematocrit 37.6 36.0-48.0 % Mean Corpuscular Volume 83.6 81.0-99.0 fL Mean Corpuscular Hemoglobin 26.0 26.7-34.0 pg Mean Corpuscular HGB Conc 31.1 29.9-35.2 g/dL Red Cell Distribution Width 15.5 11.0-15.0 % Platelet Count 219 150-450 10 3/uL Mean Platelet Volume 10.1 9.5-13.5 fL Neutrophils Percent Auto 63.7 43.0-75.0 % Lymphocytes Percent Auto 22.7 20.5-60.0 % Monocytes Percent Auto 8.5 1.7-12.0 % Eosinophils Percent Auto 4.0 0.9-7.0 % Basophils Percent Auto 0.8 0.2-2.0 % Immature Granulocytes Pct Auto 0.3 0.0-0.5 % Neutrophils Absolute Auto 4.1 1.4-6.5 10 3/uL Lymphocytes Absolute Auto 1.5 1.2-3.8 10 3/uL Monocytes Absolute Auto 0.6 0.3-0.8 10 3/uL Eosinophils Absolute Auto 0.3 0.0-0.7 10 3/uL Basophils Absolute Auto 0.1 0.0-0.1 10 3/uL Immature Granulocytes Abs Auto 0.02 0.00-0.03 10 3/uL Performing Lab: see note ML - [facility] LB XR chest 2V Reviewed date:10/16/2024 08:40:23 PM Interpretation: Performing Lab: Notes/Report: Source Facility: [place] [address] XRay Report Signed Patient: ABY MADRIGAL MR#: [id number] : 1965 Acct:[id number] Age/Sex: 59 / F ADM Date: 10/15/24 Loc: ER Attending Dr: Ordering Physician: Julienne Fuchs Date of Service: 10/15/24 Procedure(s): XR chest 2V Accession Number(s): [id number] cc: Julienne Fuchs; Kendra Moran M.D. [place] [id number] Patient Name: ABY MADRIGAL MRN: [id number] date: 1965 Sex: F Assigned Patient Location: ER Current Patient Location: Accession/Order Number: [id number] Exam Date: 10/15/2024 17:15 Report Date: 10/15/2024 18:52 At the request of: JULIENNE FUCHS Procedure: XR chest 2V EXAM: XR chest 2V HISTORY: palpitations COMPARISON: 09/28/2024 TECHNIQUE: Chest X-ray, 2 views FINDINGS: Support devices: None. Lungs/pleura: No consolidation, effusion, or pneumothorax. Heart and mediastinum: Normal contours. Bones: No acute abnormality identified. XR/XR chest 2V Impression: No radiographic evidence of acute cardiopulmonary process. Electronically authenticated by: ISABELL STERN Date: 10/15/2024 18:52 Dictated By: Isabell Stern M.D. Signed By: 10/15/241853 DD/ 51 TD/TT: [employer] Operator: [place] [address] XRay Report Signed Patient: ABY MADRIGAL MR#: [id number] : 1965 Acct:[id number] Age/Sex: 59 / F ADM Date: 10/15/24 Loc: ER Attending Dr: Ordering Physician: Julienne Fuchs Date of Service: 10/15/24 Procedure(s): XR chest 2V Accession Number(s): [id number] cc: Julienne Fuchs; Kendra Moran M.D. The [address] [address] Patient Name: ABY MADRIGAL MRN: [id number] date: 1965 Sex: F Assigned Patient Location: ER Current Patient Location: Accession/Order Numb er: [id number] Exam Date: 17:15 Report Date: 10/15/2024 18:52 At the request of: JULIENNE FUCHS Procedure: XR chest 2V EXAM: XR chest 2V HISTORY: palpitations COMPARISON: 09/28/2024 TECHNIQUE: Chest X-r ay, 2 views FINDINGS: Support devices: None. Lungs/pleura: No consolidation, effusion, or pneumothorax. Heart and mediastinu m: Normal contours. Bones: No acute abnormality identified. X R/XR chest 2V Impression: No radiographic evid ence of acute cardiopulmonary process. Electronically authenticated by: ISABELL STERN Date: 10/15/2024 18:52 Dictated By: Isabell Stern M.D. Signed By: 10/15/241853 DD/ 51 TD/TT: [employer] Operator: ECG 12 lead Reviewed date:10/18/2024 06:07:04 PM Interpretation: Performing Lab: Notes/Report: Source Facility: [place] [address] [place] [address] Electrocardiograph Report Signed Patient: ABY MADRIGAL MR#: [id number] : 1965 Acct:[id number] Age/Sex: 59 / F ADM Date: 10/15/24 Loc: ER Attending Dr: Ordering Physician: Julienne Fuchs Date of Service: 10/15/24 Procedure(s): ECG 12 lead Accession Number(s): [id number] cc: [facility] Test Date: 2024-10-15 Pat Name: ABY MADRIGAL Department: Room: - Gender: Female Demographic Analyst: : 1965 Requested By: KENDRA MORAN Order Number: [id number] Reading MD: AGUILAR MAN Measurements Intervals [place] Rate: 72 P: 49 IA: 176 QRS: 15 QRSD: 88 T: 150 QT: 388 QTc: 412 Interpretive Statements 1100 Sinus rhythm 4564 Twave abnormality, possible lateral ischemia 5211 Minimal voltage criteria for LVH, may be normal variant 9150 abnormal ECG Compared to ECG 09/28/2024 12:29:59 Possible ischemia now present Left ventricular hypertrophy now present Electronically Signed On 10-17-2024 20:20:12 EST by AGUILAR MAN Dictated By: Aguilar Man D.O. Signed By: 10/17/242019 DD/ 55 TD/TT: [employer] Operator: [place] [address] Electrocardiograph Report Signed Patient: ABY MADRIGAL MR#: [id number] : 1965 Acct:[id number] Age/Sex: 59 / F ADM Date: 10/15/24 Loc: ER Attending Dr: Ordering Physician: Julienne Fuchs Date of Service: 10/15/24 Procedure(s): ECG 12 lead Accession Number(s): [id number] cc: [facility] Test Date: 2024-10-15 Pat Name: ABY MADRIGAL Department: 48 Room: - Gender: Female Demographic Analyst: : 1965 Requ ested By: KENDRA MORAN Order Number: [id number] Reading MD: AGUILAR MAN Measurements Intervals [place] Rate: 72 P: 49 IA: 176 QRS: 15 QRSD: 88 T: 150 QT: 388 QTc: 412 Interpretive Statements 1100 Sinus rhythm 4564 Twave abnormali ty, possible lateral ischemia 5211 Minimal voltage criteria for LVH, may be normal variant 9150 abnormal ECG Compared to ECG 09/28/2024 12:29:59 Possible ischemia no w present Left ventricular hypertrophy now present Electronically Devora d On 10-17-2024 20:20:12 EST by AGUILAR MAN Dictated By: Aguilar Man D.O. Signed By: 10/17/242019 DD/ 55 TD/TT: [employer] Operator: PROF Romano(COMP METB) Reviewed date:11/12/2024 02:05:43 PM Interpretation: Performing Lab: Notes/Report: [facility] , Sodium 147 136-145 mmol/L Potassium 3.3 3.5-5.1 mmol/L Chloride 107 98-107 mmol/L Carbon Dioxide 29.0 21.0-32.0 mmol/L Anion Gap 14.3 Glucose 130 74-106 mg/dL Blood Urea Nitrogen 17.0 7.0-18.0 mg/dL Creatinine 1.21 0.55-1.02 mg/dL Estimated GFR ( Candace 55 >=60 mL/min/1.73m 2 Estimated GFR (Non- Susi 45 >=60 mL/min/1.73m 2 BUN Creatinine Ratio 14.0 Calcium 9.6 8.5-10.1 mg/dL Bilirubin Total 0.3 0.2-1.0 mg/dL Aspartate Amino Transferase 29 15-37 U/L Alanine Aminotransferase 45 14-59 U/L Alkaline Phosphatase 70 46-116 U/L Total Protein 6.7 6.4-8.2 g/dL Albumin Level 3.4 3.4-5.0 g/dL Globulin 3.3 Albumin Globulin Ratio 1.0 Performing Lab: see note ML - [facility] LB Prothrombin Time INR Reviewed date:10/16/2024 08:40:23 PM Interpretation: Performing Lab: Notes/Report: [facility] , Prothrombin Time 9.8 9.0-11.6 sec INR <0.93 DESIRED INR: 2.0-3.0 CONDITIONS NOT LISTED BELOW 2.5-3.5 FOR PROSTHETIC HEART VALVE REPLACEMENT 2.5-3.5 RECURRENT THROMBOSIS Performing Lab: see note ML - [facility] LB PTT Reviewed date:10/16/2024 08:40:23 PM Interpretation: Performing Lab: Notes/Report: [facility] , Partial Thromboplastin Time 38.9 22.3-36.2 sec Performing Lab: see note - [facility] Troponin I High Sensitivity Reviewed date:11/12/2024 02:05:43 PM Interpretation: Performing Lab: Notes/Report: [facility] , Troponin I High Sensitivity 56.5 4.0-51.3 pg/mL RESULTS CALLED TO DR JONES AT 0730 CUT-OFF POINTS HAVE BEEN ESTABLISHED BASED ON THE FOURTH UNIVERSAL DEFINITION OF MYOCARDIAL INFARCTION. THE UPPER REFERENCE LIMIT (URL) OF TROPONIN, DEFINED THE 99TH PERCENTILE OF cTnI DISTRIBUTION IN A REFERENCE POPULATION, HAS BEEN CONFIRMED THE DECISION THRESHOLD FOR VA DIAGNOSIS. 99TH PERCENTILE = 51.4 PG/ML NOTE: HIGH-SENSITIVITY TROPONIN ASSAY IS NOT INTENDED TO BE USED IN ISOLATION BUT SHOULD BE INTERPRETED IN CONJUNCTION WITH OTHER DIAGNOSTIC AND CLINICAL INFORMATION. Performing Lab: see note - [facility] CBC AUTO DIFF Reviewed date:10/16/2024 08:40:23 PM Interpretation: Performing Lab: Notes/Report: [facility] , White Blood Count 6.7 4.0-11.0 10 3/uL Red Blood Count 4.57 4.20-5.40 10 6/uL Hemoglobin 12.1 12.0-16.0 g/dL Hematocrit 38.6 36.0-48.0 % Mean Corpuscular Volume 84.5 81.0-99.0 fL Mean Corpuscular Hemoglobin 26.5 26.7-34.0 pg Mean Corpuscular HGB Conc 31.3 29.9-35.2 g/dL Red Cell Distribution Width 15.2 11.0-15.0 % Platelet Count 247 150-450 10 3/uL Mean Platelet Volume 10.3 9.5-13.5 fL Neutrophils Percent Auto 57.5 43.0-75.0 % Lymphocytes Percent Auto 30.7 20.5-60.0 % Monocytes Percent Auto 7.0 1.7-12.0 % Eosinophils Percent Auto 3.7 0.9-7.0 % Basophils Percent Auto 1.0 0.2-2.0 % Immature Granulocytes Pct Auto 0.1 0.0-0.5 % Neutrophils Absolute Auto 3.9 1.4-6.5 10 3/uL Lymphocytes Absolute Auto 2.1 1.2-3.8 10 3/uL Monocytes Absolute Auto 0.5 0.3-0.8 10 3/uL Eosinophils Absolute Auto 0.3 0.0-0.7 10 3/uL Basophils Absolute Auto 0.1 0.0-0.1 10 3/uL Immature Granulocytes Abs Auto 0.01 0.00-0.03 10 3/uL Performing Lab: see note ML - [facility] LB ECG 12 lead Reviewed date:11/14/2024 10:08:15 AM Interpretation: Performing Lab: Notes/Report: Source Facility: [place] [address] Electrocardiograph Report Signed Patient: ABY MADRIGAL MR#: [id number] : 1965 Acct:[id number] Age/Sex: 59 / F ADM Date: 11/12/24 Loc: [place] 212-[address]: Kendra Moran M.D. Ordering Physician: Elie Ortiz Date of Service: 11/12/24 Procedure(s): ECG 12 lead Accession Number(s): [id number] cc: [facility] Test Date: 2024-11-12 Pat Name: ABY MADRIGAL Department: Room: - Gender: Female Demographic Analyst: : 1965 Requested By: KENDRA MORAN Order Number: [id number] [place] MD: AGUILAR MAN Measurements Intervals [place] Rate: 81 P: 40 IA: 156 QRS: 15 QRSD: 86 T: 193 QT: 348 QTc: 385 Interpretive Statements 1100 Sinus rhythm 4664 Twave abnormality, possible inferolateral ischemia 9150 abnormal ECG Compared to ECG 10/15/2024 16:56:32 Left ventricular hypertrophy no longer present Possible ischemia still present Electronically Signed On 11-13-2024 22:38:41 EST by AGUILAR MAN Dictated By: Aguilar Man D.O. Signed By: 11/13/242237 DD/ 0 TD/TT: [employer] Operator: [place] [address] Electrocardiograph Report Signed Patient: ABY MADRIGAL MR#: [id number] : 1965 Acct:[id number] Age/Sex: 59 / F ADM Date: 11/12/24 Loc: [place] 212-[address]: Zhanna Moran M.D. Ordering Physician: Elie Oritz Date of Service: 11/12/24 Procedure(s): ECG 12 lead Accession Number(s): [id number] cc: [facility] Test Date: 2024-11-12 Pat Name: ABY MADRIGAL Department: 48 Room: - Gender: Female Demographic Analyst: : 1965 Requ ested By: KENDRA MORAN Order Number: [id number] Reading MD: AGUILAR MAN Measurements Intervals [place] Rate: 81 P: 40 IA: 156 QRS: 15 QRSD: 86 T: 193 QT: 348 QTc: 385 Interpretive Statements 1100 Sinus rhythm 4664 Twave abnormali ty, possible inferolateral ischemia 9150 abnormal ECG Compared to ECG 10/15/2024 16:56:32 Left ventricular hypertrophy no longer present Possible ischemia st ill present Electronically Devora d On 11-13-2024 22:38:41 EST by AGUILAR MAN Dictated By: Aguilar Man D.O. Signed By: 11/13/242237 DD/ 06 TD/TT: [employer] Operator: NADIA chest 1V Reviewed date:11/12/2024 02:05:43 PM Interpretation: Performing Lab: Notes/Report: Source Facility: [place] [address] [place] [address] XRay Report Signed Patient: ABY MADRIGAL MR#: [id number] : 1965 Acct:[id number] Age/Sex: 59 / F ADM Date: 11/12/24 Loc: ER Attending Dr: Ordering Physician: Elie Ortiz Date of Service: 11/12/24 Procedure(s): XR chest 1V Accession Number(s): [id number] cc: Knedra Moran M.D.; Elie Ortiz [address] [id number] Patient Name: ABY MADRIGAL MRN: [id number] date: 1965 Sex: F Assigned Patient Location: ER Current Patient Location: ER Accession/Order Number: [id number] Exam Date: 11/12/2024 06:50 Report Date: 11/12/2024 07:06 At the request of: ELIE ORTIZ Procedure: XR chest 1V Exam: Radiographs: XR chest 1V Reason for exam: chest pain Comparison: Chest x-ray dated 09/28/2024 XR/XR chest 1V IMPRESSION: Minimal linear atelectasis or scarring in the left lower lung. Chest is otherwise unremarkable. Electronically authenticated by: PADMAJA HUGGINS Date: 11/12/2024 07:06 Dictated By: Padmaja Huggins M.D. Signed By: 11/12/24708 DD/ 5 TD/TT: [employer] Operator: [place] [address] XRay Report Signed Patient: ABY MADRIGAL MR#: [id number] : 1965 Acct:[id number] Age/Sex: 59 / F ADM Date: 11/12/24 Loc: ER Attending Dr: Ordering Physician: Elie Ortiz Date of Service: 11/12/24 Procedure(s): XR chest 1V Accession Number(s): [id number] cc: Kendra Moran M.D. ; Elie Ortiz [address] [id number] Patient Name: ABY MADRIGAL MRN: [id number] date: 1965 Sex: F Assigned Patient Location: ER Current Patient Loca tion: ER Accession/Order Numb er: [id number] Exam Date: 06:50 Report Date: 11/12/2024 07:06 At the request of: ELIE ORTIZ Procedure: XR chest 1V Exam: Radiographs: X R chest 1V Reason for exam: justin st pain Comparison: Chest x- ray dated 09/28/2024 X R/XR chest 1V IMPRESSION: Minimal linear atelectasis or scarring in the left lower lung. Chest is otherwise unremarkable. Electronically authenticated by: PADMAJA HUGGINS Date: 11/12/2024 07:06 Dictated By: Shan Huggins M.D. Signed By: 11/12/24708 DD/ 5 TD/TT: [employer] Operator: CBC AUTO DIFF Reviewed date:11/13/2024 08:37:17 PM Interpretation: Performing Lab: Notes/Report: [facility] , White Blood Count 4.7 4.0-11.0 10 3/uL Red Blood Count 4.15 4.20-5.40 10 6/uL Hemoglobin 10.8 12.0-16.0 g/dL Hematocrit 35.0 36.0-48.0 % Mean Corpuscular Volume 84.3 81.0-99.0 fL Mean Corpuscular Hemoglobin 26.0 26.7-34.0 pg Mean Corpuscular HGB Conc 30.9 29.9-35.2 g/dL Red Cell Distribution Width 15.7 11.0-15.0 % Platelet Count 189 150-450 10 3/uL Mean Platelet Volume 9.7 9.5-13.5 fL Neutrophils Percent Auto 46.9 43.0-75.0 % Lymphocytes Percent Auto 38.9 20.5-60.0 % Monocytes Percent Auto 9.3 1.7-12.0 % Eosinophils Percent Auto 3.8 0.9-7.0 % Basophils Percent Auto 1.1 0.2-2.0 % Immature Granulocytes Pct Auto 0.0 0.0-0.5 % Neutrophils Absolute Auto 2.2 1.4-6.5 10 3/uL Lymphocytes Absolute Auto 1.8 1.2-3.8 10 3/uL Monocytes Absolute Auto 0.4 0.3-0.8 10 3/uL Eosinophils Absolute Auto 0.2 0.0-0.7 10 3/uL Basophils Absolute Auto 0.1 0.0-0.1 10 3/uL Immature Granulocytes Abs Auto 0.00 0.00-0.03 10 3/uL Performing Lab: see note ML - [facility] PROF CHEM 8 (BAS METB) Reviewed date:11/13/2024 08:37:17 PM Interpretation: Performing Lab: Notes/Report: [facility] , Sodium 145 136-145 mmol/L Potassium 3.6 3.5-5.1 mmol/L Chloride 108 98-107 mmol/L Carbon Dioxide 27.8 21.0-32.0 mmol/L Anion Gap 12.8 Glucose 101 74-106 mg/dL Blood Urea Nitrogen 19.0 7.0-18.0 mg/dL Creatinine 1.20 0.55-1.02 mg/dL Estimated GFR ( Candace 55 >=60 mL/min/1.73m 2 Estimated GFR (Non- Susi 46 >=60 mL/min/1.73m 2 BUN Creatinine Ratio 15.8 Calcium 8.8 8.5-10.1 mg/dL Performing Lab: see note ML - [facility] Troponin I High Sensitivity Reviewed date:11/13/2024 08:37:17 PM Interpretation: Performing Lab: Notes/Report: [facility] , Troponin I High Sensitivity 25.8 4.0-51.3 pg/mL CUT-OFF POINTS HAVE BEEN ESTABLISHED BASED ON THE FOURTH UNIVERSAL DEFINITION OF MYOCARDIAL INFARCTION. THE UPPER REFERENCE LIMIT (URL) OF TROPONIN, DEFINED THE 99TH PERCENTILE OF cTnI DISTRIBUTION IN A REFERENCE POPULATION, HAS BEEN CONFIRMED THE DECISION THRESHOLD FOR VA DIAGNOSIS. 99TH PERCENTILE = 51.4 PG/ML NOTE: HIGH-SENSITIVITY TROPONIN ASSAY IS NOT INTENDED TO BE USED IN ISOLATION BUT SHOULD BE INTERPRETED IN CONJUNCTION WITH OTHER DIAGNOSTIC AND CLINICAL INFORMATION. Performing Lab: see note ML - [facility] LB BNP Reviewed date:11/16/2024 06:07:28 PM Interpretation: Performing Lab: Notes/Report: [facility] , NT Pro B Type Natriuretic Pept 199.0 <=900.0 pg/mL Performing Lab: see note ML - [facility] LB CBC AUTO DIFF Reviewed date:11/16/2024 06:07:28 PM Interpretation: Performing Lab: Notes/Report: [facility] , White Blood Count 6.7 4.0-11.0 10 3/uL Red Blood Count 4.76 4.20-5.40 10 6/uL Hemoglobin 12.4 12.0-16.0 g/dL Hematocrit 39.6 36.0-48.0 % Mean Corpuscular Volume 83.2 81.0-99.0 fL Mean Corpuscular Hemoglobin 26.1 26.7-34.0 pg Mean Corpuscular HGB Conc 31.3 29.9-35.2 g/dL Red Cell Distribution Width 15.3 11.0-15.0 % Platelet Count 244 150-450 10 3/uL Mean Platelet Volume 10.1 9.5-13.5 fL Neutrophils Percent Auto 51.6 43.0-75.0 % Lymphocytes Percent Auto 35.6 20.5-60.0 % Monocytes Percent Auto 7.5 1.7-12.0 % Eosinophils Percent Auto 4.2 0.9-7.0 % Basophils Percent Auto 0.9 0.2-2.0 % Immature Granulocytes Pct Auto 0.2 0.0-0.5 % Neutrophils Absolute Auto 3.4 1.4-6.5 10 3/uL Lymphocytes Absolute Auto 2.4 1.2-3.8 10 3/uL Monocytes Absolute Auto 0.5 0.3-0.8 10 3/uL Eosinophils Absolute Auto 0.3 0.0-0.7 10 3/uL Basophils Absolute Auto 0.1 0.0-0.1 10 3/uL Immature Granulocytes Abs Auto 0.01 0.00-0.03 10 3/uL Performing Lab: see note ML - [facility] LB PROF 14(COMP METB) Reviewed date:11/16/2024 06:07:28 PM Interpretation: Performing Lab: Notes/Report: [facility] , Sodium 145 136-145 mmol/L Potassium 3.6 3.5-5.1 mmol/L Chloride 107 98-107 mmol/L Carbon Dioxide 28.1 21.0-32.0 mmol/L Anion Gap 13.5 Glucose 108 74-106 mg/dL Blood Urea Nitrogen 17.0 7.0-18.0 mg/dL Creatinine 1.14 0.55-1.02 mg/dL Estimated GFR ( Candace 59 >=60 mL/min/1.73m 2 Estimated GFR (Non- Susi 49 >=60 mL/min/1.73m 2 BUN Creatinine Ratio 14.9 Calcium 8.9 8.5-10.1 mg/dL Bilirubin Total 0.3 0.2-1.0 mg/dL Aspartate Amino Transferase 37 15-37 U/L Alanine Aminotransferase 58 14-59 U/L Alkaline Phosphatase 76 46-116 U/L Total Protein 7.2 6.4-8.2 g/dL Albumin Level 3.8 3.4-5.0 g/dL Globulin 3.4 Albumin Globulin Ratio 1.1 Performing Lab: see note - [facility] Troponin I High Sensitivity Reviewed date:11/16/2024 06:07:28 PM Interpretation: Performing Lab: Notes/Report: [facility] , Troponin I High Sensitivity 8.4 4.0-51.3 pg/mL CUT-OFF POINTS HAVE BEEN ESTABLISHED BASED ON THE FOURTH UNIVERSAL DEFINITION OF MYOCARDIAL INFARCTION. THE UPPER REFERENCE LIMIT (URL) OF TROPONIN, DEFINED THE 99TH PERCENTILE OF cTnI DISTRIBUTION IN A REFERENCE POPULATION, HAS BEEN CONFIRMED THE DECISION THRESHOLD FOR VA DIAGNOSIS. 99TH PERCENTILE = 51.4 PG/ML NOTE: HIGH-SENSITIVITY TROPONIN ASSAY IS NOT INTENDED TO BE USED IN ISOLATION BUT SHOULD BE INTERPRETED IN CONJUNCTION WITH OTHER DIAGNOSTIC AND CLINICAL INFORMATION. Performing Lab: see note - [facility] LB ECG 12 lead Reviewed date:11/18/2024 09:02:39 PM Interpretation: Performing Lab: Notes/Report: Source Facility: [facility]-[address] [place] [address] [place] [address] Electrocardiograph Report Signed Patient: ABY MADRIGAL MR#: [id number] : 1965 Acct:[id number] Age/Sex: 59 / F ADM Date: 11/15/24 Loc: ER Attending Dr: Ordering Physician: Donald Hoskins D.O. Date of Service: 11/15/24 Procedure(s): ECG 12 lead Accession Number(s): [id number] cc: [facility] Test Date: 2024-11-15 Pat Name: ABY MADRIGAL Department: Room: - Gender: Female Demographic Analyst: : 1965 Requested By: Donald Hoskins Order Number: [id number] Reading MD: KENDRA MORAN Measurements Intervals [place] Rate: 75 P: 54 IA: 184 QRS: 18 QRSD: 88 T: 97 QT: 376 QTc: 405 Interpretive Statements 1100 Sinus rhythm 4068 Nonspecific Twave abnormality 9130 borderline ECG Compared to ECG 11/15/2024 21:58:03 Ventricular premature complex(es) no longer present Dictated By: Kendra Moran M.D. Signed By: <Electronically signed by Kendra Moran M.D.> 11/17/24652 DD/ 57 TD/TT: [employer] Operator: [place] [address] Electrocardiograph Report Signed Patient: ABY MADRIGAL MR#: [id number] : 1965 Acct:[id number] Age/Sex: 59 / F ADM Date: 11/15/24 Loc: ER Attending Dr: Ordering Physician: Donald Hoskins D.O. Date of Service: 11/15/24 Procedure(s): ECG 12 lead Accession Number(s): [id number] cc: [facility] Test Date: 2024-11-15 Pat Name: ABY MADRIGAL Department: 48 Room: - Gender: Female Demographic Analyst: : 1965 Requested By: Donald Hoskins Order Number: [id number] [place] MD: KENDRA MORAN Measurements Intervals [place] Rate: 75 P: 54 IA: 184 QRS: 18 QRSD: 88 T: 97 QT: 376 QTc: 405 Interpretive Statements 1100 Sinus rhythm 4068 Nonspecific Twa ve abnormality 9130 borderline ECG Compared to ECG 11/15/2024 21:58:03 Ventricular prematur e complex(es) no longer present Dictated By: Shivani Moran M.D. Signed By: <Electronically signed by Kendra Moran M.D.> 11/17/24652 DD/ 57 TD/TT: [employer] Operator: XR chest 1V Reviewed date:11/16/2024 06:07:28 PM Interpretation: Performing Lab: Notes/Report: Source Facility: [place] [address] XRay Report Signed Patient: ABY MADRIGAL MR#: [id number] : 1965 Acct:[id number] Age/Sex: 59 / F ADM Date: 11/15/24 Loc: ER Attending Dr: Ordering Physician: Donald Hoskins D.O. Date of Service: 11/15/24 Procedure(s): XR chest 1V Accession Number(s): [id number] cc: Donald Hoskins D.O.; Kendra Moran M.D. [place] [address] Patient Name: ABY MADRIGAL MRN: [id number] date: 1965 Sex: F Assigned Patient Location: ER Current Patient Location: ER Accession/Order Number: [id number] Exam Date: 11/15/2024 22:18 Report Date: 11/15/2024 22:54 At the request of: DONALD HOSKINS Procedure: XR chest 1V SINGLE VIEW CHEST: 11/15/2024 10:18 PM EST CLINICAL HISTORY:chest charmaine COMPARISONS: Portable chest 11/12/2024 TECHNIQUE: Single frontal view of the chest, utilizing portable technique. Portable radiography should be considered a technically compromised study. Strongly consider dedicated PA and lateral chest radiographs, as clinically indicated. FINDINGS: LINES AND TUBES: Cardiac monitoring leads and wires overlie the patient. CARDIAC SILHOUETTE: Within normal limits. MEDIASTINAL AND HILAR CONTOUR: Within normal limits. PULMONARY PARENCHYMA AND PLEURA: No consolidation, edema, effusion, or pneumothorax. OSSEOUS STRUCTURES:Nothing significant. OTHER COMMENTS:None. XR/XR chest 1V IMPRESSION: Stable chest, with no acute radiographic findings. This report was generated with voice recognition software. Effort has been made to ensure accuracy of this report, however, occasional wording errors may persist. Please contact our office with any questions. Electronically authenticated by: SAE RICHARDS Date: 11/15/2024 22:54 Dictated By: Sae Richards D.O. Signed By: 11/15/242255 DD/ 53 TD/TT: [employer] Operator: The [address] [address] XRay Report Signed Patient: ABY MADRIGAL MR#: [id number] : 1965 Acct:[id number] Age/Sex: 59 / F ADM Date: 11/15/24 Loc: ER Attending Dr: Ordering Physician: Donald Hoskins D.O. Date of Service: 11/15/24 Procedure(s): XR chest 1V Accession Number(s): [id number] cc: Donald Hoskins D.O.; Kendra Moran M.D. [place] [id number] Patient Name: ABY MADRIGAL MRN: [id number] date: 1965 Sex: F Assigned Patient Location: ER Current Patient Loca tion: ER Accession/Order Numb er: [id number] Exam Date: 22:18 Report Date: 11/15/2024 22:54 At the request of: DONALD HOSKINS Procedure: XR chest 1V SINGLE VIEW CHEST: 11/15/2024 10:18 PM EST CLINICAL HISTORY:justin st charmaine COMPARISONS: Portabl e chest 11/12/2024 TECHNIQUE: Single fr ontal view of the chest, utilizing portable technique. Portable radiography should be considered a technically compromised study. Strongly consider dedicated PA and lateral chest radiographs, as clinically indicated. FINDINGS: LINES AND TUBES: Car diac monitoring leads and wires overlie the patient. CARDIAC SILHOUETTE: Within normal limits. MEDIASTINAL AND BERNARDA R CONTOUR: Within normal limits. PULMONARY PARENCHYMA AND PLEURA: No consolidation, edema, effusion, or pneumothorax. OSSEOUS STRUCTURES:Nothing significant. OTHER COMMENTS:None. X R/XR chest 1V IMPRESSION: Stable chest, with n o acute radiographic findings. This report was gene rated with voice recognition software. Effort has been made to ensure accuracy o f this report, however, occasional wording errors may persist. Please cont act our office with any questions. Electronically authenticated by: SAE RICHARDS Date: 11/15/2024 22:54 Dictated By: Sae Richards D.O. Signed By: 11/15/242255 DD/ 53 TD/TT: [employer] Operator: PROF Romano(COMP METB) Reviewed date:03/30/2025 01:10:37 PM Interpretation: Performing Lab: Notes/Report: [facility] , Sodium 141 136-145 mmol/L Potassium 3.1 3.5-5.1 mmol/L Chloride 101 98-107 mmol/L Carbon Dioxide 30.7 21.0-32.0 mmol/L Anion Gap 12.4 Glucose 99 74-106 mg/dL Blood Urea Nitrogen 18.0 7.0-18.0 mg/dL Creatinine 1.32 0.55-1.02 mg/dL Estimated GFR ( Candace 50 >=60 mL/min/1.73m 2 Estimated GFR (Non- Susi 41 >=60 mL/min/1.73m 2 BUN Creatinine Ratio 13.6 Calcium 9.2 8.5-10.1 mg/dL Bilirubin Total 0.4 0.2-1.0 mg/dL Aspartate Amino Transferase 20 15-37 U/L Alanine Aminotransferase 23 14-59 U/L Alkaline Phosphatase 75 46-116 U/L Total Protein 6.7 6.4-8.2 g/dL Albumin Level 3.2 3.4-5.0 g/dL Globulin 3.5 Albumin Globulin Ratio 0.9 Performing Lab: see note ML - [facility] LB CBC AUTO DIFF Reviewed date:04/01/2025 06:23:54 PM Interpretation: Performing Lab: Notes/Report: [facility] , White Blood Count 6.5 4.0-11.0 10 3/uL Red Blood Count 4.37 4.20-5.40 10 6/uL Hemoglobin 11.8 12.0-16.0 g/dL Hematocrit 36.3 36.0-48.0 % Mean Corpuscular Volume 83.1 81.0-99.0 fL Mean Corpuscular Hemoglobin 27.0 26.7-34.0 pg Mean Corpuscular HGB Conc 32.5 29.9-35.2 g/dL Red Cell Distribution Width 15.4 11.0-15.0 % Platelet Count 186 150-450 10 3/uL Mean Platelet Volume 10.3 9.5-13.5 fL Neutrophils Percent Auto 49.6 43.0-75.0 % Lymphocytes Percent Auto 39.0 20.5-60.0 % Monocytes Percent Auto 7.4 1.7-12.0 % Eosinophils Percent Auto 2.6 0.9-7.0 % Basophils Percent Auto 1.1 0.2-2.0 % Immature Granulocytes Pct Auto 0.3 0.0-0.5 % Neutrophils Absolute Auto 3.2 1.4-6.5 10 3/uL Lymphocytes Absolute Auto 2.5 1.2-3.8 10 3/uL Monocytes Absolute Auto 0.5 0.3-0.8 10 3/uL Eosinophils Absolute Auto 0.2 0.0-0.7 10 3/uL Basophils Absolute Auto 0.1 0.0-0.1 10 3/uL Immature Granulocytes Abs Auto 0.02 0.00-0.03 10 3/uL Performing Lab: see note - [facility] C. Difficile PCR Reviewed date:04/19/2025 06:15:21 PM Interpretation: Performing Lab: Notes/Report: [facility] , C. Difficile PCR NEGATIVE Performing Lab: see note [facility] Salmonella/Shigella Screen Reviewed date:04/24/2025 04:35:14 PM Interpretation: Performing Lab: Notes/Report: [facility] , Salmonella/Shigella Screen See Below For Report Salmonella/Shigella Screen Salmonella/Shigella Screen No Salmonella or Shigella recovered. Salmonella/Shigella Screen Performing Lab: see note [facility] E coli Shiga Toxin EIA Reviewed date:04/24/2025 04:35:14 PM Interpretation: Performing Lab: Notes/Report: [facility] , E coli Shiga Toxin EIA See Below For Report E coli Shiga Toxin EIA E coli Shiga Toxin EIA Negative E coli Shiga Toxin EIA E coli Shiga Toxin EIA Performed at: [facility] E coli Shiga Toxin EIA E coli Shiga Toxin EIA [address], [place] [id number] E coli Shiga Toxin EIA E coli Shiga Toxin EIA [place] Attendant: Levar Romeo PhD, Phone: [phone] E coli Shiga Toxin EIA Performing Lab: see note LC - [facility] LB SEE REPORT - Adult Caregiver Id information not found for OBX-specific licensed sales producer legend Troponin I High Sensitivity Reviewed date:07/03/2024 09:09:41 AM Interpretation: Performing Lab: Notes/Report: [facility] , Troponin I High Sensitivity 82.8 4.0-51.3 pg/mL RESULTS CALLED TO ER Dr. Roberto Romeo @BY Marvin Oconnell MLT at 1928 CUT-OFF POINTS HAVE BEEN ESTABLISHED BASED ON THE FOURTH UNIVERSAL DEFINITION OF MYOCARDIAL INFARCTION. THE UPPER REFERENCE LIMIT (URL) OF TROPONIN, DEFINED THE 99TH PERCENTILE OF cTnI DISTRIBUTION IN A REFERENCE POPULATION, HAS BEEN CONFIRMED THE DECISION THRESHOLD FOR VA DIAGNOSIS. 99TH PERCENTILE = 51.4 PG/ML NOTE: HIGH-SENSITIVITY TROPONIN ASSAY IS NOT INTENDED TO BE USED IN ISOLATION BUT SHOULD BE INTERPRETED IN CONJUNCTION WITH OTHER DIAGNOSTIC AND CLINICAL INFORMATION. Performing Lab: see note ML - [facility] Troponin I High Sensitivity Reviewed date:07/03/2024 09:09:41 AM Interpretation: Performing Lab: Notes/Report: [facility] , Troponin I High Sensitivity 85.2 4.0-51.3 pg/mL RESULTS CALLED TO ADELIA GARCIA RN CUT-OFF POINTS HAVE BEEN ESTABLISHED BASED ON THE FOURTH UNIVERSAL DEFINITION OF MYOCARDIAL INFARCTION. THE UPPER REFERENCE LIMIT (URL) OF TROPONIN, DEFINED THE 99TH PERCENTILE OF cTnI DISTRIBUTION IN A REFERENCE POPULATION, HAS BEEN CONFIRMED THE DECISION THRESHOLD FOR VA DIAGNOSIS. 99TH PERCENTILE = 51.4 PG/ML NOTE: HIGH-SENSITIVITY TROPONIN ASSAY IS NOT INTENDED TO BE USED IN ISOLATION BUT SHOULD BE INTERPRETED IN CONJUNCTION WITH OTHER DIAGNOSTIC AND CLINICAL INFORMATION. Performing Lab: see note ML - [facility] LB PROF 14(COMP METB) Reviewed date:07/03/2024 09:09:41 AM Interpretation: Performing Lab: Notes/Report: [facility] , Sodium 138 136-145 mmol/L Potassium 3.4 3.5-5.1 mmol/L Chloride 103 98-107 mmol/L Carbon Dioxide 27.3 21.0-32.0 mmol/L Anion Gap 11.1 Glucose 116 74-106 mg/dL Blood Urea Nitrogen 17.0 7.0-18.0 mg/dL Creatinine 1.16 0.55-1.02 mg/dL Estimated GFR ( Candace 58 >=60 Estimated GFR (Non- Susi 48 >=60 BUN Creatinine Ratio 14.7 Calcium 8.7 8.5-10.1 mg/dL Bilirubin Total 0.4 0.2-1.0 mg/dL Aspartate Amino Transferase 26 15-37 U/L Alanine Aminotransferase 54 14-59 U/L Alkaline Phosphatase 93 46-116 U/L Total Protein 7.0 6.4-8.2 g/dL Albumin Level 3.3 3.4-5.0 g/dL Globulin 3.7 Albumin Globulin Ratio 0.9 Performing Lab: see note ML - [facility] LB CBC AUTO DIFF Reviewed date:07/03/2024 09:09:41 AM Interpretation: Performing Lab: Notes/Report: [facility] , White Blood Count 9.1 4.0-11.0 10 3/uL Red Blood Count 4.68 4.20-5.40 10 6/uL Hemoglobin 12.8 12.0-16.0 g/dL Hematocrit 39.7 36.0-48.0 % Mean Corpuscular Volume 84.8 81.0-99.0 fL Mean Corpuscular Hemoglobin 27.4 26.7-34.0 pg Mean Corpuscular HGB Conc 32.2 29.9-35.2 g/dL Red Cell Distribution Width 15.3 11.0-15.0 % Platelet Count 282 150-450 10 3/uL Mean Platelet Volume 10.5 9.5-13.5 fL Neutrophils Percent Auto 63.4 43.0-75.0 % Lymphocytes Percent Auto 27.9 20.5-60.0 % Monocytes Percent Auto 6.1 1.7-12.0 % Eosinophils Percent Auto 1.9 0.9-7.0 % Basophils Percent Auto 0.4 0.2-2.0 % Immature Granulocytes Pct Auto 0.3 0.0-0.5 % Neutrophils Absolute Auto 5.8 1.4-6.5 10 3/uL Lymphocytes Absolute Auto 2.6 1.2-3.8 10 3/uL Monocytes Absolute Auto 0.6 0.3-0.8 10 3/uL Eosinophils Absolute Auto 0.2 0.0-0.7 10 3/uL Basophils Absolute Auto 0.0 0.0-0.1 10 3/uL Immature Granulocytes Abs Auto 0.03 0.00-0.03 10 3/uL Performing Lab: see note - [facility] LB Reason For Referral Reason Dr. Moran asked if we can get her in [place] please! Thank You! Diagnosis 1 Abnormal stress test (R94.39) Referral Organization [facility] [place] Referring Provider First Name KENDRA Referring Provider Last Name LUISA Referring Provider [facility] Referred Provider Gomez Spence Referred Provider Specialty Cardiology Referral Priority Routine Diagnosis 1 Pulmonary nodule (R9 1.1) Referral Organization [facility] Referring Provider First Name Amadou Referring Provider Last Name Luisa Referring Provider [facility] Referred Provider Marlon Beal Referred Provider Specialty Pulmonology Referral Priority Routine Diagnosis 1 Solitary pulmonary n odule (R91.1) Referral Organization [facility] Referring Provider First Name Amadou Referring Provider Last Name Luisa Referring Provider [facility] Referred Provider Jarocho Saldaña Referred Provider Specialty Cardiothorac ic surgeon Referral Priority Routine Diagnosis 1 Facial cellulitis (L 03) Referral Organization [facility] Referring Provider First Name Amadou Referring Provider Last Name Long Referring Provider [facility] Referred Provider Avelina Guevara Referred Provider Specialty Otolaryngolo gy Referral Priority Routine Diagnosis 1 Thrombus (I82.90) Referral Organization [facility] Referring Provider First Name Amadou Referring Provider Last Name Long Referring Provider [facility] Referred Provider Specialty Ear, nose an d throat surgeon Referral 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 Referred Provider Omar Mares Referred Address [address], [place], [place],[address],[place] Referred Provider Specialty Otolaryngolo gy General Notes Afsaneh Perla 10:51:41 AM >automated message sent Clinical Notes Afsaneh Perla 08:41:51 AM >will we see? CT report scanned in chart from 03/26/25, Lenny Valenzuela 04/02/2025 10:50:17 AM >yes, per JW Referral Priority Routine Medications Medication SIG (Take, Route, Frequency, Duration) Notes Start Date End Date Status CPAP - auto cpap 5-15 for 365 days Active Rosuvastatin Calcium 40 MG 1 tablet Orally Once a day for 90 days Active CPAP Supplies -- Mask and Tubing for 365 days 08/15/2024 Active SEROquel 100 MG 1 tablet at bedtime Orally Once a day for 90 days 04/20/2023 Active Glucometer - Use as directed once daily for 365 days Diagnosis: E11.9 09/30/2023 Active Test Strips - Use as directed once daily for 90 days Diagnosis: E11.9 09/30/2023 Active hydrALAZINE HCl 50 MG 1 tablet with food Orally TID for 90 days As needed 07/28/2024 Active LORazepam 1 MG 1 tablet Orally tid for 30 days 03/29/2025 Active Autopap (A-PAP) - - Apply mask to face using face mask daily auto cpap 5-15 for 365 days 04/21/2023 Active Magnesium Oxide 400 MG 1 tablet with mingo d Orally Once a day for 30 days 03/30/2025 Active Carvedilol 25 MG 1 tablet with food Orally TID for 90 days Active metFORMIN HCl 500 MG 1 tablet with a óscar l Orally BID for 90 days Active Clopidogrel Bisulfate 75 MG 1 tablet Orally Once a day for 90 days Active Protonix 40 MG 1 tablet Orally bid for 90 days 09/20/2023 Active Invokana 100 MG 1 tablet before the first meal of the day Orally Once a day for 90 days Active Isosorbide Mononitrate ER 60 MG 1 tablet Orally bid for 90 days Active Meloxicam 15 MG 1 tablet Orally Once a day for 30 days 04/25/2025 Active Lancets - Use as directed once daily for 90 days Diagnosis: E11.9 09/30/2023 Active Aspirin 81 MG 1 tablet Orally Once a day Active Immunizations Vaccine Route Administration Date Status Comme nts Flu, Flucelvax (69908) 2 yrs +, single-dose syringe (3890-1297) Unknown 11/07/2021 Administered SARS-COV-2 (COVID 19 Pfizer 30mcg/0.3mL) Unknown 04/14/2021 Administered Social History Tobacco Use: Social History Observation Description Date Details (start date - stop date) Former Smoker NA - NA Tobacco Use/Smoking Question Answer Notes Patient is a former smoker When did you stop smoking? 07/23/2022 How long has it been since you last smoked? 6-12 months Tobacco Control (Standard) Question Answer Notes Tobacco use: Former smoker How long has it been since y ou last smoked? 1-5 years Additional Findings: Tobacco non-user Ex -moderate cigarette smoker (10-19/day) AUDIT-C (Standard) Question Answer Notes Did you have a drink containing alcohol in the p ast year? No Points 0 Interpretation Negative Problems Problem Type SNOMED Code ICD Code Onset Dates Problem Status W/U Status Risk Notes Problem [id number] Type 2 diabetes mellitus without complications (E11.9) Active confirmed Problem Hypomagnesemia (716865572) Hypomagnesemia (E83.42) Active confirmed Problem Solitary pulmonary nodule (505595102) Solitary pulmonary nodule (R91.1) Active confirmed Problem Hypertension (82491316) Hypertension (I10) Active confirmed Problem Gastroesophageal reflux disease (520820805) GERD (gastroesophageal reflux disease) (K21.9) Active confirmed Problem Hypertension (46692150) HTN (hypertension) (I10) Active confirmed Problem Anxiety (56500230) Anxiety (F41.9) Active confi rmed Problem Coronary artery disease (12037105) Coronary artery disease (I25.10) Active confirmed Problem Left ventricular hypertrophy (21478112) Left ventricular hypertrophy (I51.7) Active confirmed Problem Carotid artery stenosis (75171154) Carotid artery stenosis (I65.29) Active confirmed Problem Sleep apnea (09122634) Sleep apnea (G47.30) Active confirmed Problem Obstructive sleep apnea (25767713) Obstructive sleep apnea (G47.33) Active confirmed Problem Insomnia (204626810) Insomnia (G47.00) Active confirmed Problem Transient ischemic attack (550786860) TIA (transient ischemic attack) (G45.9) Active confirmed Problem Migraine (28545487) Migraine (G43.909) Active confirmed Problem Generalized anxiety disorder (79776780) ALFONSO (generalized anxiety disorder) (F41.1) Active confirmed Problem Kidney stone (23440253) Kidney stones (N20.0) Active confirmed Problem Pulmonary nodule (302453463) Pulmonary nodule (R91.1) Active confirmed Problem Murmur (258501484) Murmur (R01.1) Active confir med Problem Diarrhea (40992779) Diarrhea (R19.7) Active con firmed Problem Edema (568149370) Edema leg (R60.0) Active conf irmed Problem Solitary nodule of lung (535559039) Lung nodule (R91.1) Active confirmed Problem Allergic conjunctivitis (433714923) Allergic conjunctivitis (H10.10) Active confirmed Problem Acquired hypothyroidism (189300550) Acquired hypothyroidism (E03.9) Active confirmed Problem Panic disorder (781028602) Panic disorder (F41.0) Active confirmed Problem Hemorrhoids (01407409) Hemorrhoids (K64.9) Active confirmed Problem Thrush (85622469) Thrush (B37.0) Active confirm ed Problem Iron deficiency anemia (63746704) Anemia, iron deficiency (D50.9) Active confirmed Problem Inflamed seborrheic keratosis (309547498) Seborrheic keratoses, inflamed (L82.0) Active confirmed Problem Acute non-ST segment elevation myocardial infarction (886023271) NSTEMI (non-ST elevated myocardial infarction) (I21.4) Active confirmed Problem High blood pressure (22920195) High blood pressure (I10) Active confirmed Problem Cellulitis and abscess of face (690596448) Facial cellulitis (L03.211) Active confirmed Problem Skin sensation disturbance (28817385) Bilateral leg paresthesia (R20.2) Active confirmed Problem Ex-tobacco user (finding) (648683844) History of tobacco abuse (Z87.891) Active confirmed Problem Derangement of knee (76007729) Internal derangement of knee, left (M23.92) Active confirmed Problem Recurrent major depression (81886828) Depression, major, recurrent (F33.9) Active confirmed Problem Mass of left adrenal gland (94388656924690517) Left adrenal mass (E27.9) Active confirmed Problem Paresthesia of upper limb (57188265) Paresthesia of upper limb (R20.2) Active confirmed Problem Essential hypertension (54984361) BP (high blood pressure) (I10) Active confirmed Problem Hypertensive urgency (198110118) Hypertensive urgency (I16.0) Active confirmed Problem Hypertensive emergency (631715353088192) Hypertensive emergency (I16.1) Active confirmed Problem Derangement of knee (55574365) Knee internal derangement, unspecified laterality (M23.90) Active confirmed Problem Diabetes mellitus (65697522) Diabetes mellitus (E11.9) Active confirmed Problem Disease caused by Severe acute respiratory syndrome coronavirus 2 (disorder) (682277728) COVID-19 virus infection (U07.1) Active confirmed Vital Signs Heart Rate 59 /min 06/27/2024 Temperature 96.9 degrees Fahrenheit 06/27/2024 Respiratory Rate 18 /min 06/27/2024 Oximetry 96 % 06/27/2024 Blood pressure diastolic 82 mm Hg 04/25/2025 Height 63 in 04/25/2025 Blood pressure systolic 136 mm Hg 04/25/2025 Weight 200.8 lbs 04/25/2025 BMI 35.57 kg/m2 04/25/2025 Procedures Procedure Date Ordered Date Performed Result Body Sit e PFT (45398, 06030, 96881) 06/27/2024 N/A Sleep Study: Retitration BIPAP/CPAP 08/04/2024 N/A Encounters Encounter Location Date Provider Diagnosis [id number] [place] [address] 04/19/2025 Amadou Hoy Hypertension I10 ; Diabetes mellitus E11.9 ; Hypokalemia E87.6 and Shortness of breath R06.[address] [address] 04/24/2025 Amadou Hoy [facility] [address] [place] [address] 03/26/2025 Amadou Hoy Hypomagnesemia E83.4 2 and Hypertensive urgency I16.0 [facility] [address] [place] [address] 03/29/2025 Amadou Hoy Insomnia G47.00 [address] [place] [address] 03/30/2025 Amadou Hoy [facility] [address] [place] [address] 03/30/2025 Amadou Hoy Thrombus I82.[address] [address] 04/02/2025 Amadou Hoy Low potassium syndro me E87.6 [facility] [address] [facility] [place] [address] 04/09/2025 Amadou Hoy Facial cellulitis L03.211 and Hypomagnesemia E83.42 [facility] [address] [place] [facility] [place] [address] 11/26/2024 Amadou Hoy [facility] [address] [place] [facility] [place] [address] 12/25/2024 Amadou Hoy Insomnia G47.00 [facility] [address] [place] [address] 01/30/2025 Amadou Hoy Insomnia G47.00 [facility] [address] [facility] [place] [address] 02/08/2025 Amadou Hoy [facility] [address] [place] [facility] [place] [address] 03/23/2025 Amadou Hoy Facial cellulitis L03.211 [facility] [address] [place] [facility] [place] [address] 03/26/2025 Amadou Hoy Facial cellulitis L03.211 [facility] [address] [place] [facility] [place] [address] 09/29/2024 Amadou Hoy [facility] [address] [place] [facility] [place] [address] 10/17/2024 Amadou Hoy Insomnia G47.00 [facility] [address] [place] [facility] [place] [address] 10/27/2024 Amadou Hoy Hypertension I10 and Well adult Z00.00 [facility] [address] [place] [facility] [place] [address] 11/08/2024 Amadou Hoy [facility] [address] [place] [facility] [place] [address] 11/13/2024 Amadou Hoy [facility] [address] [place] [facility] [place] [address] 11/16/2024 Amadou Hoy Insomnia G47.00 [facility] [address] [place] [address] 07/31/2024 Amadou Hoy [facility] [address] [place] [address] 08/14/2024 Amadou Hoy [facility] [address] [facility] [place] [place] [address] 08/15/2024 Amadou Alvesy Insomnia G47.00 [facility] [address] [place] [address] 08/15/2024 Amadou Alvesy Obstructive sleep apnea G47.33 [facility] [address] [facility] [place] [address] 08/17/2024 Amaodu Alvesy [facility] [address] [facility] [place] [address] 09/18/2024 Kaelyn Francine Insomnia G47.00 [facility] [address] [facility] [place] [address] 06/29/2024 Amadou Alvesy [facility] [address] [facility] [place] [address] 07/05/2024 Amadou Moran Solitary pulmonary nodule R91.1 [facility] [address] [facility] [place] [address] 07/05/2024 Amadou Alvesy Well adult Z00.00 [facility] [address] [place] [address] 07/06/2024 Amadou Alvesy Type 2 diabetes mellitus without complications E11.9 ; Hypertension I10 and Well adult Z00.00 [facility] [address] [facility] [place] [address] 07/13/2024 Amadou Alvesy Hypertension I10 [facility] [address] [facility] [place] [address] 07/18/2024 Amadou Hoy [facility] [address] [facility] [place] [address] 06/13/2024 Amadou Alvesy [facility] [address] [facility] [place] [address] 06/18/2024 Amadou Hoy Well adult Z00.00 [facility] [address] [place] [facility] [place] [address] 2024 Amadou Hoy [facility] [address] [place] [facility] [place] [address] 06/21/2024 Amadou Alvesy Pulmonary nodule R91 .1 Pulmonary [facility] [address] [place] [place] [address] 06/26/2024 Marlon [facility] Pulmonary [facility] [address] [place] [place] [place] [address] 06/27/2024 Marlon [facility] [address] [facility] [place] [address] 05/09/2024 KENDRA MORAN [facility] [address] [facility] [place] [address] 05/21/2024 KENDRA HOY Abnormal stress test R94.39 [facility] [address] [place] [facility] [place] [address] 05/31/2024 Amadou Hoy [facility] [address] [place] [facility] [place] [address] 06/07/2024 Amadou Hoy [facility] [address] [place] [facility] [place] [address] 03/30/2025 Amadou Hoy Hypomagnesemia E83.4 2 ; Thrush B37.0 and Diarrhea R19.7 [address] [place] [facility] [place] [address] 04/09/2025 Amadou Hoy Hypertension I10 ; Diabetes mellitus E11.9 ; Diarrhea R19.7 and Knee pain M25.569 [facility] [address] [place] [facility] [place] [address] 04/25/2025 Amadou Hoy Knee internal derangement, unspecified laterality M23.90 and Internal derangement of knee, left M23.92 [facility] [address] [place] [facility] [place] [address] 07/05/2024 Amadou Hoy Hypertension I10 ; Left ventricular hypertrophy I51.7 ; Type 2 diabetes mellitus without complications E11.9 ; Hypertensive emergency I16.1 ; Coronary artery disease I25.10 and Sleep apnea G47.30 [facility] [address] [place] [address] 07/19/2024 Amadou Hoy TIA (transient ischemic attack) G45.9 and Hypertension I10 [facility] [address] [place] [address] 07/28/2024 Amadou Hoy Hypertension I10 [facility] [address] [place] [address] 08/04/2024 Amadou Hoy Hypertension I10 and Sleep apnea G47.30 [facility] [address] [place] [address] 09/27/2024 Maadou Hoy Hypertension I10 [address] [place] [address] 11/20/2024 Amadou Hoy Hypertension I10 and Left ventricular hypertrophy I51.7 [facility] [address] [place] [address] 03/20/2025 Amadou Hoy Facial cellulitis L03.[address] [address] 03/15/2025 Amadou Hoy Facial cellulitis L03.211 [facility] [address] [place] [address] 04/03/2025 Christopher Vishnu Nasal congestion R09.81 ; Other specified disorders of nose and nasal sinuses J34.89 ; SURESH (obstructive sleep apnea) G47.33 and Cellulitis L03.90 [facility] [place] [address] [place] [address] 06/27/2024 Marlon Beal Solitary pulmonary nodule R91.1 ; History of tobacco abuse Z87.891 and Left adrenal mass E27.9 [facility] [address] [place] [address] 06/13/2024 Amadou Hoy TIA (transient ischemic attack) G45.9 ; Hypertension I10 and Anxiety F41.9 Assessments Encounter Date Diagnosis (ICD Code) Assessment Notes Treatment Notes Treatment Clinical Notes Section Notes 06/13/2024 TIA (transient ischemic attack) (ICD-10 - G45.9) 06/13/2024 Hypertension (ICD-10 - I10) 07/19/2024 TIA (transient ischemic attack) (ICD-10 - G45.9) 07/19/2024 Hypertension (ICD-10 - I10) 07/28/2024 Hypertension (ICD-10 - I10) 08/04/2024 Hypertension (ICD-10 - I10) leaving med the same 08/04/2024 Sleep apnea (ICD-10 - G47.30) 09/27/2024 Hypertension (ICD-10 - I10) 11/20/2024 Hypertension (ICD-10 - I10) 11/20/2024 Left ventricular hypertrophy (ICD-10 - I51.7) 03/15/2025 Facial cellulitis (ICD-10 - L03.211) 03/20/2025 Facial cellulitis (ICD-10 - L03.211) if not better - need ct facial bones 03/30/2025 Hypomagnesemia (ICD-10 - E83.42) 03/30/2025 Thrush (ICD-10 - B37.0) 07/05/2024 Hypertension (ICD-10 - I10) 07/05/2024 Left ventricular hypertrophy (ICD-10 - I51.7) 04/09/2025 Hypertension (ICD-10 - I10) 04/09/2025 Diabetes mellitus (ICD-10 - E11.9) 04/03/2025 Nasal congestion (ICD-10 - R09.81) 04/03/2025 Other specified disorders of nose and nasal sinuses (ICD-10 - J34.89) 04/25/2025 Knee internal derangement, unspecified laterality (ICD-10 - M23.90) 04/25/2025 Internal derangement of knee, left (ICD-10 - M23.92) 05/21/2024 Abnormal stress test (ICD-10 - R94.39) 06/18/2024 Well adult (ICD-10 - Z00.00) 06/21/2024 Pulmonary nodule (ICD-10 - R91.1) 07/05/2024 Solitary pulmonary nodule (ICD-10 - R91.1) 07/05/2024 Well adult (ICD-10 - Z00.00) 07/06/2024 Type 2 diabetes mellitus without complications (ICD-10 - E11.9) 06/27/2024 Solitary pulmonary nodule (ICD-10 - R91.1) Incidental 1.1 cm right middle lobe pulmonary nodule noted on chest CT 04/21/2024, mildly FDG avid (SUV 3) on PET 2024. Utilizing a solitary pulmonary nodule risk calculator ([facility] Model), risk of malignancy of the nodule is 9.2 %. Explained to the patient that pulmonary nodules typically represent either infection, inflammation, or cancer. There is not enough information at this current time to determine which 1 of these the pulmonary nodule represents and that further workup is required. She has a very strong family history of multiple cancers, including lung, and she wants to pursue this aggressively. The following options were discussed with the patient in depth: -Bronchoscopy with transbronchial biopsies. I personally reviewed the imaging. There is not a bronchus that directly goes to the pulmonary nodule and would therefore need to be performed with fluoroscopy at this location. Explained the risk of nondiagnostic pathology with this approach. -CT-guided needle biopsy. There are quite a few centimeters between the pleural surface and the pulmonary nodule. There would be a higher risk than normal of postprocedural pneumothorax. -Thoracic surgery referral. This surgical approach could be considered for wedge resection or even lobectomy as an option as there is no evidence of any further FDG positive lymphadenopathy or pulmonary nodules. There is the positive left adrenal mass, but this appears somewhat stable compared to 09/04/2019 and is unlikely to represent a cancer. -Labs to evaluate for connective tissue disease/rheumatolo gical conditions as well as fungal studies. -Forego any biopsies and repeat chest CT in 3 months as it is only mildly FDG positive. Certain infections and inflammatory states can mimic neoplasm by being mildly FDG positive. She stated to me that she wanted to treat this aggressively-the follow-up options for the CT on 04/21/2024 stated repeating a chest CT versus PET, and that I was the one who pushed for the PET. I suggested a combination of labs plus bronchoscopy would be the best initial approach to investigate the nodule. The patient voiced concerns about the risk of a nondiagnostic study via bronchoscopy. She then stated that she wished to have a referral to a thoracic surgeon. I stated that I can place a referral, but there is no guarantee that the surgeon would perform thoracic surgery; he or she may want to perform a bronchoscopy first or other procedures before going straight towards lobectomy. She then stated that she did not want a referral to thoracic surgery, nor did she want a bronchoscopy-she only wanted to have the labs done. I asked her since she was wanted to treat this aggressively, why did she not want any biopsy? She stated that she wanted to think about her options and get back with me. I stated that was acceptable, however this may delay time to schedule her in the OR if she wants to proceed with bronchoscopy with me. In the case that she does want to proceed with thoracic surgery and if lobectomy were indicated, a pulmonary function test would need to be done to assist post op pulmonary function. I recommended getting a baseline PFT done in the event it would be necessary. She voiced agreement to this. The plan at this time is for her to get the labs done as well as a pulmonary function test. She will contact me at a later date to inform me of what her plans are. If she wants a bronchoscopy, she will have to return for informed consent and to complete paperwork, as well to schedule for preadmission testing. I do not have any follow-up visit scheduled at this current time. As she was checking out, my help desk technician staff overheard the patient speaking with another employee (who was her cousin). The employee asked so Dr. Beal is your rosio then to which patient replied umm I'm thinking not, I don't have any answers. It is impossible for me to determine what a solitary pulmonary nodule is without further data. I feel I provided the patient with multiple options as outlined above. If she does not feel that I am providing her adequate care, she is free to seek a second opinion elsewhere. 06/27/2024 History of tobacco abuse (ICD-10 - Z87.891) 1ppd x 44 years, quit 2021. Does not meet current LDCT screening criteria d/t suspicious pulmonary nodule. 07/13/2024 Hypertension (ICD-10 - I10) 08/15/2024 Insomnia (ICD-10 - G47.00) 08/15/2024 Obstructive sleep apnea (ICD-10 - G47.33) 09/18/2024 Insomnia (ICD-10 - G47.00) 10/17/2024 Insomnia (ICD-10 - G47.00) 10/27/2024 Hypertension (ICD-10 - I10) 11/16/2024 Insomnia (ICD-10 - G47.00) 12/25/2024 Insomnia (ICD-10 - G47.00) 01/30/2025 Insomnia (ICD-10 - G47.00) 03/23/2025 Facial cellulitis (ICD-10 - L03.211) 03/26/2025 Facial cellulitis (ICD-10 - L03.211) 03/26/2025 Hypomagnesemia (ICD-10 - E83.42) 03/26/2025 Hypertensive urgency (ICD-10 - I16.0) 03/29/2025 Insomnia (ICD-10 - G47.00) 03/30/2025 Thrombus (ICD-10 - I82.90) 04/02/2025 Low potassium syndrome (ICD-10 - E87.6) 04/09/2025 Facial cellulitis (ICD-10 - L03.211) 04/19/2025 Hypertension (ICD-10 - I10) 04/19/2025 Diabetes mellitus (ICD-10 - E11.9) 04/19/2025 Hypokalemia (ICD-10 - E87.6) 04/09/2025 Hypomagnesemia (ICD-10 - E83.42) 10/27/2024 Well adult (ICD-10 - Z00.00) 06/27/2024 Left adrenal mass (ICD-10 - E27.9) Apparently previously identified on CT abdomen 09/04/2029 and evaluated by [facility]. Patient does not remember much regarding the experience, she does not recall any biopsies. All she remembers is that I didn't like them very much. 07/06/2024 Hypertension (ICD-10 - I10) 04/03/2025 SURESH (obstructive sleep apnea) (ICD-10 - G47.33) 04/09/2025 Diarrhea (ICD-10 - R19.7) 07/05/2024 Type 2 diabetes mellitus without complications (ICD-10 - E11.9) 03/30/2025 Diarrhea (ICD-10 - R19.7) 06/13/2024 Anxiety (ICD-10 - F41.9) 07/05/2024 Hypertensive emergency (ICD-10 - I16.1) 04/09/2025 Knee pain (ICD-10 - M25.569) 04/03/2025 Cellulitis (ICD-10 - L03.90) 07/06/2024 Well adult (ICD-10 - Z00.00) 04/19/2025 Shortness of breath (ICD-10 - R06.02) 07/05/2024 Coronary artery disease (ICD-10 - I25.10) 07/05/2024 Sleep apnea (ICD-10 - G47.30) 04/03/2025 Other I discussed my impression and treatment plan with Aby. Her nose no longer appears to have an infection. I encouraged her to finish Diflucan. I advised her to continue CPAP use. She may follow up as needed 04/25/2025 Other failed conservative measure adding meloxicam -motrin not effective - needs MRI - likely torn meniscus based on + Maritza Plan Of Treatment Pending Test Test Name Order Date Exercise Stress Nuclear Test 04/28/2024 CMP (COMPLETE METABOLIC PANEL) CULTURE, STOOL 03/30/2025 CULTURE, STOOL 04/09/2025 REDUCING SUBSTANCE, STOOL 04/09/2025 HEMOGLOBIN A1C (GLYCO) 09/20/2023 LIPID PANEL (CHOL/TRIG/HDL/LDL) 09/20/20 23 CBC WITH DIFF 09/20/2023 MAMM Mammograms CAD 09/20/2023 Stool For Leukocytes 03/30/2025 Insulin Level 09/20/2023 COMPREHENSIVE METABOLIC PROFILE WITH GFR 04/19/2025 OCCULT BLOOD, FECAL, IMMUNOASSAY 025 Sleep Study: Retitration BIPAP/CPAP 07/23 C DIFF TOX PCR STOOL 03/30/2025 C DIFF TOX PCR STOOL 04/09/2025 CMP - Comprehensive Metabolic Panel 03/2025 CT Facial Bones w/o Contrast 03/23/2025 CBC W/AUTO DIFF 04/19/2025 PFT (84159, 75803, 77659) 06/27/2024 Covid-19 PCR (CVDTBH) 08/13/2023 GLYCOHEMOGLOBIN A1C 04/19/2025 MRI KNEE LT WO CON 04/25/[address] SKULL BASE MID THIGH 04/28/2024 THYROID PANEL (T4/TSH/FREE T3) 3 THYROID PANEL (T4/TSH/FREE T3) 5 Lipid Panel 04/19/2025 Insurance Providers Payer Name Payer Address Payer Phone Subscriber Number Group Number Insured Name Patient Relationship to Insured Coverage Start Date Coverage End Date [employer] [place] [employer] [address] [address] [place] [address] [id number] [id number] 1 [place] emAby Self - patient is the insured 3 Medical (General) History Medical History History ICD Code Edema leg R60.0 COVID-19 virus infection U07.1 Carotid artery stenosis I65.29 Left ventricular hypertrophy I51.7 Depression, major, recurrent F33.9 Panic disorder F41.0 Seborrheic keratoses, inflamed L82.0 Murmur R01.1 Kidney stones N20.0 Allergic conjunctivitis H10.10 Obstructive sleep apnea G47.33 Hypertension I10 TIA (transient ischemic attack) G45.9 Hemorrhoids K64.9 Anxiety F41.9 Bilateral leg paresthesia R20.2 Paresthesia of upper limb R20.2 Migraine G43.909 Solitary pulmonary nodule R91.1 History of tobacco abuse Z87.891 Left adrenal mass E27.9 heart disease HTN reflux Heart attack Surgical History Surgery Date(Month/Year) Coronary angiography 06/30/24 cholecystectomy Hysterectomy 1998 Tubal Ligation 1988 appendectomy Angioplasty with stent placement stent kidney stone Hospitalization History Reason Date(Month/Year) Hypertension-TBH 03/2024
--- NOTE | 2025-05-09 15:40 | ECG_ITS ---
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 Measurements Intervals [place] Rate: 60 P: 50 ND: 186 QRS: 20 QRSD: 88 T: 104 QT: 420 QTc: 420 Interpretive Statements 1100 Sinus rhythm 4564 Twave abnormality, possible lateral ischemia 9150 abnormal ECG Compared to ECG 03/25/2025 22:21:42 ST (T wave) deviation no longer present Possible ischemia still present Electronically Signed On 05-09-2025 21:06:32 EDT by GOMEZ JAY M.D.
--- NOTE | 2025-05-09 15:40 | XR_ITS ---
The [address] [address] Patient Name: MILAN RASMUSSEN MRN: [id number] date: 1965 Sex: F Assigned Patient Location: ER Current Patient Location: ER Accession/Order Number: [id number] Exam Date: 05/09/2025 16:03 Report Date: 05/09/2025 16:04 At the request of: ELSIE WREN MD Procedure: XR chest 1V Plain film chest Single view HISTORY: Chest pain. Shortness of breath COMPARISON: 01/31/2025 FINDINGS: SUPPORT DEVICES: None POSTSURGICAL CHANGES: None HEART: Within normal limits PULMONARY BERNARDA: Within normal limits MEDIASTINUM: Unremarkable LUNGS AND PLEURA: No acute lung process, pleural effusion or pneumothorax identified. BONY STRUCTURES: Intact ADDITIONAL FINDINGS None XR/XR chest 1V IMPRESSION: No acute process. Impression dictated by: Elsie White M.D. 05/09/2025 4:04 PM Dictation Location: [facility] Electronically authenticated by: [id number] Y Date: 05/09/2025 16:04
--- NOTE | 2025-05-09 15:57 | ECG_ITS ---
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 Measurements Intervals [place] Rate: 60 P: 47 LA: 178 QRS: 15 QRSD: 86 T: 109 QT: 424 QTc: 424 Interpretive Statements 1100 Sinus rhythm 4564 Twave abnormality, possible lateral ischemia 5211 Minimal voltage criteria for LVH, may be normal variant 9150 abnormal ECG Compared to ECG 05/09/2025 15:39:44 No significant changes Electronically Signed On 05-10-2025 17:47:23 EDT by GOMEZ JAY M.D.
[2025-05-09 16:12] LABS: Basophils Percent Auto 0.8 % (0.2-2.0); Eosinophils Absolute Auto 0.2 10^3/uL (0.0-0.7); Eosinophils Percent Auto 3.4 % (0.9-7.0); Hematocrit 38.6 % (36.0-48.0); Hemoglobin 12.3 g/dL (12.0-16.0); Lymphocytes Absolute Auto 1.8 10^3/uL (1.2-3.8); Lymphocytes Percent Auto 37.9 % (20.5-60.0); Mean Corpuscular HGB Conc 31.9 g/dL (29.9-35.2); Mean Corpuscular Hemoglobin 26.6 pg (26.7-34.0); Mean Corpuscular Volume 83.4 fL (81.0-99.0); Mean Platelet Volume 10.1 fL (9.5-13.5); Monocytes Absolute Auto 0.4 10^3/uL (0.3-0.8); Monocytes Percent Auto 7.8 % (1.7-12.0); Neutrophils Absolute Auto 2.4 10^3/uL (1.4-6.5); Neutrophils Percent Auto 50.1 % (43.0-75.0); Platelet Count 216 10^3/uL (150-450); Red Blood Count 4.63 10^6/uL (4.20-5.40); White Blood Count 4.8 10^3/uL (4.0-11.0)
[2025-05-09] MEDS: ASPIRIN 81 MG TAB.CHEW 162 MG PO (16:13)
[2025-05-09 16:26] LABS: Alanine Aminotransferase 39 U/L (14-59); Albumin Globulin Ratio 1.1; Albumin Level 3.7 g/dL (3.4-5.0); Alkaline Phosphatase 70 U/L (46-116); Anion Gap 15.4; Aspartate Amino Transferase 26 U/L (15-37); BUN Creatinine Ratio 14.7; Bilirubin Total 0.4 mg/dL (0.2-1.0); Calcium 9.3 mg/dL (8.5-10.1); Carbon Dioxide 27.8 mmol/L (21.0-32.0); Chloride 105 mmol/L (98-107); Estimated GFR (African America >60 (>=60 mL/min/1.73m^2); Estimated GFR (Non-African Ame 55 (>=60 mL/min/1.73m^2); Globulin 3.4 g/dL; Glucose 120 mg/dL (74-106); Potassium 4.2 mmol/L (3.5-5.1); Sodium 144 mmol/L (136-145); Total Protein 7.1 g/dL (6.4-8.2); Troponin I High Sensitivity 6.4 pg/mL (4.0-51.3)
[2025-05-09 17:39] LABS: Troponin I High Sensitivity 7.5 pg/mL (4.0-51.3)
[2025-05-09] MEDS: KETOROLAC TROMETHAMINE 30 MG/ML VIAL 15 MG IVP (19:20)
[2025-05-09 20:49] LABS: Troponin I High Sensitivity 4.6 pg/mL (4.0-51.3)
--- NOTE | 2025-05-09 21:11 | ED.GENADUL1 ---
HPI HPI - General Adult General Chief complaint: Chest Pain Stated complaint: CHEST PAIN Time Seen by Provider: 05/09/25 15:58 Source: patient Mode of arrival: walk-in Limitations: no limitations History of Present Illness HPI narrative: Patient is a 59-year-old female who is presenting to the ER with chief complaint left-sided chest pain that started approximately 2 hours prior to arrival. Patient has a cardiac history. Patient had 1 stent placed last year. Patient's heel buffer is Dr. Son. Patient is currently on a baby aspirin and Plavix. Patient has a history of 1 stent. Patient has not had a stress test or echocardiogram since her stent was placed. Daughter is at bedside, she is a nurse at [employer]. Patient has no recent traveling. Patient admits to anxiety. Patient has a dull bilateral frontal headache. Patient's had no abdominal pain nausea or vomiting. Patient has a lots of risk. She is diabetic, takes cholesterol and blood pressure medication. She has 1 stent. Patient is 59 years old. Patient's PCP is Dr. Murillo. Patient's heel buffer is Dr. Son. Heart score of 5 When patient arrived, she stated her pain was 2/10. Patient's blood pressure medication was changed a few weeks ago. Patient states her blood pressure has been going up and down, along with her heart rate. Daughter states she has noticed on the monitor that her heart rate was less than 53 separate times. Patient stated she felt slightly fatigued and short of breath when daughter noticed the lower heart rate. Through the entire HPI and physical exam, I have not noticed any low heart rate. All systems are negative except as noted/marked. All systems reviewed and otherwise negative. Nurses note and vital signs reviewed and patient is not hypoxic. General: The patient appears well and in no apparent distress. Patient is resting comfortably on cart. Patient is not toxic, lethargic, or listless Skin: Warm, dry, no pallor noted. There is no rash noted. No petechiae, purpura. Head: Normocephalic, atraumatic Eye: Normal conjunctiva, no drainage, EOMI. PERRL Ears, Nose, Mouth, and Throat: oral mucosa is moist. Nares patent. Mouth without vesicles. Cardiovascular: Regular Rate and Rhythm, no murmur, gallop, rub. Patient does have mild reproducible tenderness to palpation to the left lateral chest wall, no rash. No reproducible tenderness to palpation to bilateral anterior and posterior chest wall, no pain to the right chest wall. Respiratory: Patient is in no distress, no accessory muscle use, lungs are clear to auscultation, no wheezing, rales or rhonchi Back: non-tender, no CVA tenderness bilaterally to percussion. No CT LS midline pain GI: No midepigastric tenderness to palpation, no tenderness to palpation, no masses appreciated. No rebound, guarding, or rigidity noted. No distention Musculoskeletal: Patient has full range of motion of all of the extremities, no motor, sensory, or focal neurological deficits. Patient does have chronic swelling to the left leg compared to the right. Patient states she has chronic left knee pain and has an MRI scheduled for Wednesday. Neurological: A&O x4, normal speech Psychiatric: Cooperative Related Data Home Medications ?Medication ?Instructions ?Recorded ?Confirmed aspirin 81 mg capsule 81 mg PO DAILY 04/22/24 05/09/25 clopidogrel 75 mg tablet 75 mg PO DAILY 07/01/24 05/09/25 quetiapine 100 mg tablet (Seroquel) 100 mg PO .QHS 07/24/24 05/09/25 rosuvastatin 40 mg tablet 40 mg PO DAILY 07/24/24 05/09/25 isosorbide mononitrate 60 mg 60 mg PO BID 07/31/24 05/09/25 tablet,extended release 24 hr lorazepam 1 mg tablet (Ativan) 1 mg PO Q6H PRN anxiety 07/31/24 05/09/25 hydralazine 50 mg tablet 50 mg PO TID PRN hypertension 09/15/24 05/09/25 carvedilol 25 mg tablet 12.5 mg PO BID 05/09/25 05/09/25 spironolactone 25 mg tablet 12.5 mg DAILY 05/09/25 Previous Rx's ?Medication ?Instructions ?Recorded canagliflozin 300 mg tablet 300 mg PO DAILY #30 tabs 11/13/24 (Invokana) pantoprazole 40 mg tablet,delayed 40 mg PO BID #60 tabs 11/13/24 release (Protonix) hydrocortisone 1 %-pramoxine 1 % 1 applic VT DAILY PRN hemorrhoids 04/01/25 rectal foam (Proctofoam HC) #10 grams Allergies Allergy/AdvReac Type Severity Reaction Status Date / Time lisinopril Allergy Severe Cough Verified 05/09/25 15:36 amlodipine Allergy Mild Headache Verified 05/09/25 15:36 alprazolam (From Xanax) AdvReac Severe Watery Eye Verified 05/09/25 15:36 Opioid HPI Opioid Management Most Recent Opioid Data: Last Pain Scale 2 Today, 16:26 Last ED Pain Assessment Today, 16:26 Last ORT Total Score 4 11/12/24, 11:27 Last ORT Risk Category Moderate Risk 11/12/24, 11:27 PFSH PFS Medical History Elevated troponin ?R79.89 - Other specified abnormal findings of blood chemistry (ICD-10) Hypertensive emergency ?I16.1 - Hypertensive emergency (ICD-10) Acute non-ST elevation myocardial infarction (NSTEMI) ?I21.4 - Non-ST elevation (NSTEMI) myocardial infarction (ICD-10) Chest pain ?R07.9 - Chest pain, unspecified (ICD-10) CAD (coronary artery disease) ?I25.10 - Atherosclerotic heart disease of [place] coronary artery without angina pectoris (ICD-10) Hypertensive urgency ?I16.0 - Hypertensive urgency (ICD-10) HTN (hypertension) ?I10 - Essential (primary) hypertension (ICD-10) Hypertensive urgency ?I16.0 - Hypertensive urgency (ICD-10) Chest pain ?R07.9 - Chest pain, unspecified (ICD-10) Anxiety ?F41.9 - Anxiety disorder, unspecified (ICD-10) HTN (hypertension) ?I10 - Essential (primary) hypertension (ICD-10) Hypokalemia ?E87.6 - Hypokalemia (ICD-10) Hypertension, uncontrolled ?I10 - Essential (primary) hypertension (ICD-10) Chest pain ?R07.9 - Chest pain, unspecified (ICD-10) NSTEMI (non-ST elevated myocardial infarction) ?I21.4 - Non-ST elevation (NSTEMI) myocardial infarction (ICD-10) Shortness of breath ?R06.02 - Shortness of breath (ICD-10) Headache ?R51.9 - Headache, unspecified (ICD-10) Elevated d-dimer ?R79.89 - Other specified abnormal findings of blood chemistry (ICD-10) Hypertensive emergency ?I16.1 - Hypertensive emergency (ICD-10) Uncontrolled hypertension ?I10 - Essential (primary) hypertension (ICD-10) Irritable bowel syndrome ?K58.9 - Irritable bowel syndrome without diarrhea (ICD-10) H/O nephrolithotomy with removal of calculi ?Z98.890 - Other specified postprocedural states (ICD-10) ?Z87.442 - Personal history of urinary calculi (ICD-10) Kidney stone ?N20.0 - Calculus of kidney (ICD-10) Sepsis ?A41.9 - Sepsis, unspecified organism (ICD-10) H/O angiography ?Z92.89 - Personal history of other medical treatment (ICD-10) Lung nodule ?R91.1 - Solitary pulmonary nodule (ICD-10) Anxiety ?F41.9 - Anxiety disorder, unspecified (ICD-10) HTN (hypertension) ?I10 - Essential (primary) hypertension (ICD-10) Diabetes ?E11.9 - Type 2 diabetes mellitus without complications (ICD-10) TIA (transient ischemic attack) ?G45.9 - Transient cerebral ischemic attack, unspecified (ICD-10) Surgical History H/O heart artery stent ?Z95.5 - Presence of coronary angioplasty implant and graft (ICD-10) History of appendectomy ?Z90.49 - Acquired absence of other specified parts of digestive tract (ICD-10) H/O tubal ligation ?Z98.51 - Tubal ligation status (ICD-10) History of cholecystectomy ?Z90.49 - Acquired absence of other specified parts of digestive tract (ICD-10) Family History Mother Family history of cancer Father MVA (motor vehicle accident) Brother Family history of stroke Social History Within the past year, how often did you have a drink containing alcohol: never Within the past year, how often did you have six or more drinks on one occasion: never Score interpretation: A score less than 3 is consistent with normal alcohol consumption. Smoking status: Former smoker Second hand tobacco smoke exposure: No Non-prescribed substance use: denies use Previous occupational history: no Known occupational exposures/hazards: No Highest level of school completed/degree received: high school graduate Do you want help with school or training: No Are you now , , , , never or living with a partner: In a typical week, how many times do you talk on the telephone with family, friends, or neighbors: 3 or more times per week How often do you get together with friends or relatives: 3 or more times per week How often do you attend sabianism or christianity services: never Do you belong to any clubs or organizations such as sabianism groups unions, [facility] or athletic groups, or school groups: no Total score: 1 Score interpretation: A score of less than or equal to 1 indicates the most socially isolated. Little interest or pleasure in doing things: not at all Feeling down, depressed, or hopeless: not at all Feel stressed/tense/nervous/anxious/difficulty sleeping: not at all Do you think of yourself as: straight/heterosexual Gender Identity: female Exam Constitutional Vital Signs, click to edit/add: Last Vital Signs Temp 98.2 F 05/09/25 15:37 Pulse 72 05/09/25 19:40 Resp 29 H 05/09/25 19:40 BP 161/68 H 05/09/25 19:18 Pulse Ox 97 05/09/25 19:18 O2 Del Method Room Air 05/09/25 15:37 Course Vital Signs Vital signs: Vital Signs Temperature 98.2 F 05/09/25 15:37 Pulse Rate 72 05/09/25 15:37 Respiratory Rate 16 05/09/25 15:37 Blood Pressure 132/57 05/09/25 15:37 Pulse Oximetry 98 05/09/25 15:37 Oxygen Delivery Method Room Air 05/09/25 15:37 Temperature 98.2 F 05/09/25 15:37 Pulse Rate 72 05/09/25 19:40 Respiratory Rate 29 H 05/09/25 19:40 Blood Pressure 161/68 H 05/09/25 19:18 Pulse Oximetry 97 05/09/25 19:18 Oxygen Delivery Method Room Air 05/09/25 15:37 Medical Decision Making MDM Narrative Medical decision making narrative: Patient seen and examined: Patient have cardiac evaluation, aspirin will be given. Patient states her pain was 2/10 when she arrived. Differential diagnosis includes but is not limited to: [place], ACS, pneumonia, pleurisy, pneumothorax, ACS, gastritis, obstruction Diagnostics and management: Patient will have laboratory studies Relevant laboratory interpretation: 2 troponins have been negative. Radiological studies: Please see the formal radiological report. Chest x-ray shows no acute cardiopulmonary disease, no infiltrate, no effusion. Reevaluation: Shared decision making: I discussed with the patient the necessary laboratory findings and radiological findings. Social barriers to healthcare: There are no food insecurities, there is no issue with transportation, there are no insurance barriers. Disposition: I discussed with the patient and her daughter. Patient has a heart score of 5. Patient will be admitted to rule out ACS. Concern of patient and daughter on intermittent episodes of bradycardia along with fluctuating blood pressures. Patient's heel buffer is Dr. Son from [facility]. I have spoken to Anh LENTZ at 1830. Patient will be admitted to Dr. Murillo with Anh covering this evening. Patient also had a ultrasound of her left leg done to rule out DVT to err on the side of caution. Ultrasound is negative. Patient had a headache, she did not want Tylenol, she wanted IV Toradol. Toradol helped slightly with her headache, she did not want Tylenol or any other medication for headache. Patient is admitted to Dr. Murillo. Lab Data Labs: Lab Results 05/09/25 05/09/25 05/09/25 Range/Units 15:45 17:08 20:28 WBC 4.8 (4.0-11.0) 10^3/uL RBC 4.63 (4.20-5.40) 10^6/uL Hgb 12.3 (12.0-16.0) g/dL Hct 38.6 (36.0-48.0) % MCV 83.4 (81.0-99.0) fL MCH 26.6 L (26.7-34.0) pg MCHC 31.9 (29.9-35.2) g/dL RDW 16.0 H (11.0-15.0) % Plt Count 216 (150-450) 10^3/uL MPV 10.1 (9.5-13.5) fL Neut % (Auto) 50.1 (43.0-75.0) % Lymph % (Auto) 37.9 (20.5-60.0) % [place] % (Auto) 7.8 (1.7-12.0) % Eos % (Auto) 3.4 (0.9-7.0) % Baso % (Auto) 0.8 (0.2-2.0) % Neut # (Auto) 2.4 (1.4-6.5) 10^3/uL Lymph # (Auto) 1.8 (1.2-3.8) 10^3/uL [place] # (Auto) 0.4 (0.3-0.8) 10^3/uL Eos # (Auto) 0.2 (0.0-0.7) 10^3/uL Baso # (Auto) 0.0 (0.0-0.1) 10^3/uL Abs Immat Gran (auto) 0.00 (0.00-0.03) 10^3/uL Imm/Tot Granulo (auto) 0.0 (0.0-0.5) % Sodium 144 (136-145) mmol/L Potassium 4.2 (3.5-5.1) mmol/L Chloride 105 (98-107) mmol/L Carbon Dioxide 27.8 (21.0-32.0) mmol/L Anion Gap 15.4 BUN 15.0 (7.0-18.0) mg/dL Creatinine 1.02 (0.55-1.02) mg/dL Est GFR ( Amer) >60 (>=60 mL/min/1.73m^2) Est GFR (Non-Af Amer) 55 L (>=60 mL/min/1.73m^2) BUN/Creatinine Ratio 14.7 Glucose 120 H (74-106) mg/dL Calcium 9.3 (8.5-10.1) mg/dL Total Bilirubin 0.4 (0.2-1.0) mg/dL AST 26 (15-37) U/L ALT 39 (14-59) U/L Alkaline Phosphatase 70 (46-116) U/L Troponin I High Sens 6.4 7.5 4.6 (4.0-51.3) pg/mL Total Protein 7.1 (6.4-8.2) g/dL Albumin 3.7 (3.4-5.0) g/dL Globulin 3.4 g/dL Albumin/Globulin Ratio 1.1 Lipase 33.0 (16.0-77.0) U/L Discharge Plan Discharge Chief Complaint: Chest Pain Clinical Impression: Chest pain Patient Disposition: Admitted as Observation Time of Disposition Decision: 19:09 Condition: Fair
--- OUTSIDE RECORDS SUMMARY | 2025-05-09 22:53 | XMS_ITS | CCD ---
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 Name Role Phone Kendra Moran Primary Care Physician [phone] Umm LANDON Attending Unavailable NILL, Umm Michael [...] HOY ., DR GARDNER Primary Care Unavailable BEULAVILLE, DR ADELIA Medrano Consulting Unavailable FENG CHRISTIE Attending Unavailable FENG CHRISTIE Referring Unavailable KENDRA MORAN Primary Care Unavailable GAGE NÚÑEZ Admitting Unavailable Kendra Moran MD Primary Care Provider FARZANA ELY Attending Unavailable HOY, KENDRA M Referring Unavailable HOY, KENDRA M Primary Care Unavailable HOY, KENDRA M Referring Unavailable HOY, KENDRA M Primary Care Unavailable HOY, KENDRA M Referring Unavailable HOY, KENDRA M Primary Care Unavailable TOFLINSKI, FEDERICA Referring Unavailable HORANI, NONA Referring Unavailable FENG CHRISTIE Attending Unavailable FENG CHRISTIE Attending Unavailable JAMEYUKAGOMEZ RODRIGUEZ Attending Unavailable TOFLINSKI, FEDERICA Referring Unavailable JOSE BETANCUR Referring Unavailable HORANI, NONA Admitting Unavailable TAO NASSAR Attending Unavailable HERMINIA JULIAN Attending Unavailable JOFENG STARKEY Referring Unavailable OMBALLI, RICHA Referring Unavailable OMBALLI, RICHA Referring Unavailable BIJAN MITCHELL Attending Unavailable FENG CHRISTIE Attending Unavailable MACMESERET Referring Unavailable JOFENG STARKEY Attending Unavailable HORANI, NONA Referring Unavailable STEPHEN, BIJAN Attending Unavailable FENG CHRISTIE Attending Unavailable MOUKARBGOMEZ DUNN Attending Unavailable OMBALLI, RICHA Attending Unavailable HORANI, NONA Referring Unavailable HOY, KENDRA Referring Unavailable HORANI, NONA Admitting Unavailable HORANI, NONA Attending Unavailable HORANI, NONA Referring Unavailable MOUKARBELGOMEZ Attending Unavailable MOUKARBELGOMEZ Attending Unavailable OMBALLI, RICHA Attending Unavailable HERMINIA JULIAN Referring Unavailable FELECIA CORDOBA Referring Unavailable Allergies Allergy Classification Reported Allergen(s) Allergy Type Date of Onset Reaction(s) Facility (1 source) No Known Medication Allergies; Translations: [No Known Medication Allergies] Propensity to adverse reactions (disorder) [facility] Repository (4 sources) ALPRAZolam; Translations: [ALPRAZOLAM] Drug Allergy 4 Abnormal Behavior [facility] Repository (5 sources) amLODIPine; Translations: [AMLODIPINE] Drug Allergy 4 Other (See Comments) [facility] Repository (5 sources) Lisinopril; Translations: [LISINOPRIL] Drug Allergy 4 Cough [facility] Repository (1 source) LORazepam Drug Allergy 5 Unknown Reaction [place] Medications Current Medications Medication Drug Class(es) Dates [...] Coronary arteriosclerosis; Translations: [Atherosclerotic heart disease of [place] coronary artery without angina pectoris] Onset: 3 [...] Hypertension secondary to endocrine disorders; 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 Inflammation; infection of eye [...] Translations: [Acute vaginitis] Onset: 10-18-2017 10-18-2017 Episodic Other aftercare (1 source) [facility] (current) use of aspirin; Translations: [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 Change carvedilol to 1.5 tablets twice daily. 2. Start taking spironolactone half tablet once daily. 3. You can stop clopidogrel in July 2025. [facility] Office Visiton 04-23-2025 Follow-up visit [id number] Aby Madrigal 1965 F Date Provider Department Center 04/23/2025 Octavio-GOMEZ SPENCE RIAZ Barba [facility] Family History Problem Relation Age of Onset Lung cancer Mother Accidental Father Lung cancer Sister Family Status - Relation Status Age at Mother Father Sister Brother Alive Level of Service:60504 UT OFFICE/OUTPATIENT ESTABLISHED MOD MDM 30 MIN [facility] Orders Onlyon 04-20-2025 Orders Only [id number] Aby Madrigal Cristina 1965 [facility] Provider Department Center 04/20/2025 [id number], [facility] RIAZ [facility] Family History Problem Relation Age of Onset Lung cancer Mother Accidental Father Lung cancer Sister Family Status - Relation Status Age at Mother Father Sister Brother Alive [facility] 37on 04-10-2025 37 It was good to see y ou again today I would like you to start taking spironolactone 50 mg daily. I am hopeful this will allow us to cut down significantly on your other blood pressure medications. You may start taking the carvedilol twice a day rather than 3 times a day. In 2 to 3 weeks of taking the spironolactone please get blood work done for me so I can see where your potassium levels are. Normal [facility] Follow-Upon 04-10-2025 Follow-Up [id number] Aby Madrigal 1965 F [facility] Provider Department Center 04/10/2025 [id number] BOWMAN [facility] ENDOCR [facility] Family History Problem Relation Age of Onset Lung cancer Mother Accidental Father Lung cancer Sister Family Status - Relation Status Age at Mother Father Sister Brother Alive Level of Service:79173 UT OFFICE/OUTPATIENT ESTABLISHED MOD MDM 30 MIN Reason for Visit and Comments: Adrenal Problem [420] - Follow up [facility] 2903-02-2025 29 Addended by: FENG CHRISTIE on: 03/02/2025 09:34 AM Modules accepted: Orders [facility] 03-02-2025 36 Called patient over the phone at 9:10 AM - I have reviewed results from adrenal venous sampling performed on 02/07/2025 at [facility]. 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 [facility] Please call patient and let her know that I've requested the test results from [facility] ([facility]) Ill be able to discuss the results with her tomorrow Thank you [facility] 36on 02-26-2025 36 Patient called regarding IR venography she had done 02/07. Requesting to discuss results and how she should follow up per Dr. Christie [facility] Office Visiton 02-26-2025 Follow-up visit [id number] Aby Madrigal 1965 F Date Provider Department Center 02/26/2025 [facility]-GOMEZ SPENCE [facility] RIAZ [place] Family History Problem Relation Age of Onset Lung cancer Mother Accidental Father Lung cancer Sister Family Status - Relation Status Age at Mother Father Sister Brother Alive Level of Service:62772 UT OFFICE/OUTPATIENT ESTABLISHED LOW MDM 20 MIN Normal [facility] Telephoneon 02-26-2025 Telephone [id number] Aby Madrigal 1965 F Date Provider Department Center 02/26/2025 JESSY MATSON [facility] NEPH [facility] Family History Problem Relation Age of Onset Lung cancer Mother Accidental Father Lung cancer Sister Family Status - Relation Status Age at Mother Father Sister Brother Alive Normal [facility] Cortisol [Mass/Vol]on 2024 CORTISOL 5.2 ug/dL Normal [facility] Comment on above: Result Comment: Due to the diurnal variation of cortisol levels in normal subjects, all cortisol measurements should be referenced to the time of day of sample collection. AM Cortisol Age>=6 6.7-22.4 ug/dL PM Cortisol Age>=6 <10 ug/dL Performed By: #### 2 143-6 #### [facility] ([id number]) [address] [place] [address], [facility] [place] [address] [place] [address] CORTISOL 5.2 ug/dL Normal [facility] Comment on above: Result Comment: Due to the diurnal variation of cortisol levels in normal subjects, all cortisol measurements should be referenced to the time of day of sample collection. AM Cortisol Age>=6 6.7-22.4 ug/dL PM Cortisol Age>=6 <10 ug/dL Performed By: #### 2 143-6 #### [facility] ([id number]) [address] [place] [address], [address] [place] [address] CORTISOL 10.9 ug/dL Normal [facility] Comment on above: Result Comment: Due to the diurnal variation of cortisol levels in normal subjects, all cortisol measurements should be referenced to the time of day of sample collection. AM Cortisol Age>=6 6.7-22.4 ug/dL PM Cortisol Age>=6 <10 ug/dL Performed By: #### 2 143-6 #### [facility] ([id number]) [address], [address] [place] [address] CORTISOL 11.1 ug/dL Normal [facility] Comment on above: Result Comment: Due to the diurnal variation of cortisol levels in normal subjects, all cortisol measurements should be referenced to the time of day of sample collection. AM Cortisol Age>=6 6.7-22.4 ug/dL PM Cortisol Age>=6 <10 ug/dL Performed By: #### 2 143-6 #### [facility] ([id number]) [address], [address] [place] [address] CORTISOL 5.7 ug/dL Normal [facility] Comment on above: Result Comment: Due to the diurnal variation of cortisol levels in normal subjects, all cortisol measurements should be referenced to the time of day of sample collection. AM Cortisol Age>=6 6.7-22.4 ug/dL PM Cortisol Age>=6 <10 ug/dL Performed By: #### 2 143-6 #### [facility] ([id number]) [address], [address] [place] [address] CORTISOL 14.3 ug/dL Normal [facility] Comment on above: Result Comment: Due to the diurnal variation of cortisol levels in normal subjects, all cortisol measurements should be referenced to the time of day of sample collection. AM Cortisol Age>=6 6.7-22.4 ug/dL PM Cortisol Age>=6 <10 ug/dL Performed By: #### 2 143-6 #### [facility] ([id number]) [address] [facility], [address] GENERIC ORDERon 025 TEST NAME AIVC INFERIOR VENA CAVA Normal [facility] Comment on above: Result Comment: Cody ected on 02/07 AT 1204: Previously reported as INFERIOR VENA CAVA TEST RESULT SEE COMMENTS 02/10/2025 12:12 AM Normal [facility] Comment on above: Result Comment: NOTE Test Result Flag Unit RefValue Aldosterone, IVC <4.0 ng/dL Not applicable ADDITIONAL INFORMATION This test was developed and its performance characteristics determined by [facility] in a manner consistent with CLIA requirements. This test has not been cleared or approved by the U.S. Food and Drug Administration. Test Performed by: [facility] [address] [place] [address] Supervisor Dry Paste: Shawanda Jimenez Ph.D.; CLIA# [id number] Result Comment: NOTE Test Result Flag Unit RefValue Aldosterone, LAV 32 ng/dL Not applicable ADDITIONAL INFORMATION This test was developed and its performance characteristics determined by [facility] in a manner consistent with CLIA requirements. This test has not been cleared or approved by the U.S. Food and Drug Administration. Test Performed by: [facility] [place] [address] Supervisor Dry Paste: Shawanda Jimenez Ph.D.; CLIA# [id number] Result Comment: NOTE Test Result Flag Unit RefValue Aldosterone, LAV 28 ng/dL Not applicable ADDITIONAL INFORMATION This test was developed and its performance characteristics determined by [facility] in a manner consistent with CLIA requirements. This test has not been cleared or approved by the U.S. Food and Drug Administration. Test Performed by: [facility] [place] [address] Supervisor Dry Paste: Shawanda Jimenez Ph.D.; CLIA# [id number] Result Comment: NOTE Test Result Flag Unit RefValue Aldosterone, KELLEY <4.0 ng/dL Not applicable ADDITIONAL INFORMATION This test was developed and its performance characteristics determined by [facility] in a manner consistent with CLIA requirements. This test has not been cleared or approved by the U.S. Food and Drug Administration. Test Performed by: [facility] [address] Supervisor Dry Paste: Shawanda Jimenez Ph.D.; CLIA# [id number] Result Comment: NOTE Test Result Flag Unit RefValue Aldosterone, KELLEY 74 ng/dL Not applicable ADDITIONAL INFORMATION This test was developed and its performance characteristics determined by [facility] in a manner consistent with CLIA requirements. This test has not been cleared or approved by the U.S. Food and Drug Administration. Test Performed by: [facility] [place] [address] Supervisor Dry Paste: Shawanda Jimenez Ph.D.; CLIA# [id number] TEST NAME ALAV LEFT ADRENAL Normal [facility] TEST NAME ALAV LEFT ADRENAL Normal [facility] TEST NAME ARAV RIGHT ADRENAL Normal [facility] TEST NAME ARAV RIGHT ADRENAL Normal [facility] Telephoneon 01-18-2025 Telephone [id number] EmmadamianAby spence S 1965 F Date Provider Department Center 01/18/2025 [id number] [facility] Family History Problem Relation Age of Onset Lung cancer Mother Accidental Father Lung cancer Sister Family Status - Relation Status Age at Mother Father Sister Brother Alive Normal [facility] Follow-Upon 01-09-2025 Follow-Up [id number] EmmadamianAby spence S 1965 F Date Provider Department Center 01/09/2025 [id number]-DYOXVFENG [facility] Family History Problem Relation Age of Onset Lung cancer Mother No Known Problems Father Lung cancer Sister Family Status - Relation Status Age at Mother Father Sister Level of Service:26614 UT OFFICE/OUTPATIENT ESTABLISHED LOW MDM 20 MIN [facility] 36on 01-04-2025 36 Called patient's daughter [...] thanked me for the call [facility] 3601-03-2025 36 Voicemail. Patient's daughter called in, she thought Dr. Christie was going to order testing where they go in through the groin to see which kidney is dumping off excess hormones, she would like a call back. Normal [facility] Telephoneon 01-03-2025 Telephone [id number] NataAby starr 1965 F Date Provider Department Center 01/03/2025 [id number], [facility] ENDOCR [facility] Family History Problem Relation Age of Onset Lung cancer Mother No Known Problems Father Lung cancer Sister Family Status - Relation Status Age at Mother Father Sister [facility] ALDOSTERONEon 01-02-2025 ALDOSTERONE (NG/DL) IN SER/PLAS 7.3 ng/dL Normal [facility] Comment on above: [...] reference intervals for this test in the [facility] Test Directory ([employer]). Performed By: [facility] [address] [place] [address] Diet Assistant: Navneet Simeon MD, PhD CLIA Number: [id number] Performed By: #### L [id number] ####[facility] ([facility])[address] [place] [address] ALDOSTERONE (NG/DL) IN SER/PLAS 14.2 ng/dL Normal [facility] Comment on above: [...] reference intervals for this test in the [facility] Test Directory ([employer]). Performed By: [facility] [address] [place] [address] Diet Assistant: Navneet Smieon MD, PhD CLIA Number: [id number] Performed By: #### L [id number] ####[facility] ([facility])[address] [place] [id number] CORTISOLon 01-02-2025 CORTISOL (UG/DL) IN SER/PLAS 3.6 ug/dL Normal 0-9 [facility] Comment on above: Performed By: #### L AB61 ####[facility] ([facility] [place] [address] CORTISOL (UG/DL) IN SER/PLAS 9.0 ug/dL Normal 6-23 [facility] Comment on above: Performed By: #### L [id number] #### [facility] (BEAKER) [address] [place] [address] NURSNOTEon 01-02-2025 NURSNOTE T-1=7510, at this ti me VS taken, IV [...] pt up to BR and released. Normal [facility] POTASSIUMon 01-02-2025 Potassium [Moles/Vol] 3.9 mmol/L Normal 3.5-5.1 [facility] Comment on above: Performed By: #### L [id number] ####[facility] (BEAKER)[address] [place] [address] Potassium [Moles/Vol] 4.0 mmol/L Normal 3.5-5.1 [facility] Comment on above: Performed By: #### L [id number] #### [facility] (BEAKER) [address] [place] [address] RENIN ACTIVITYon 01-02-2025 RENIN ACTIVITY <0.1 Normal [facility] Comment on above: [...] developed and its performance characteristics determined by [facility]. It has not been cleared or approved by the US Food and Drug Administration. This test was performed in a CLIA certified laboratory and is intended for clinical purposes. Performed By: [facility] [address] [place] [address] Diet Assistant: Navneet Simeon MD, PhD CLIA Number: [id number] Performed By: #### L [id number] #### [facility] ([facility]) [address] [place] [address] RENIN ACTIVITY <0.1 Normal [facility] Comment on above: Result Comment: INTE RPRETIVE INFORMATION: Renin Activity Adult, Normal sodium diet: Supine ................. 0.2-1.6 ng/mL/hr Upright ................ 0.5-4.0 ng/mL/hr Children, Normal sodium diet, Supine: Smoaks (1-7 days) ..... 2.0-35.0 ng/mL/hr Cord blood [...] developed and its performance characteristics determined by [facility]. It has not been cleared or approved by the US Food and Drug Administration. This test was performed in a CLIA certified laboratory and is intended for clinical purposes. Performed By: [facility] [address] [place] [address] Diet Assistant: Navneet Simeon MD, PhD CLIA Number: [id number] Performed By: #### L AB532 #### [facility] ([facility]) [address] [place] [address] Orders Onlyon 01-01-2025 Orders Only [id number] Aby Madrigal 1965 F Date Provider Department Center 01/01/2025 RAMU KONG [facility] 2A Second Fl Family History Problem Relation Age of Onset Lung cancer Mother No Known Problems Father Lung cancer Sister Family Status - Relation Status Age at Mother Father Sister Normal [facility] Orders Only [id number] Strausbaugh,Aby S 1965 F Date Provider Department Center 01/01/2025 175Mode-GIBSON GARCIA [facility] 2A Second Fl Family History Problem Relation Age of Onset Lung cancer Mother No Known Problems Father Lung cancer Sister Family Status - Relation Status Age at Mother Father Sister Normal [facility] Orders Onlyon 12-26-2024 Orders Only [id number] Strausbaugh,Aby S 1965 F Date Provider Department Center 12/26/2024 1623-DAX MONTERO [facility] 2A Second Fl Family History Problem Relation Age of Onset Lung cancer Mother No Known Problems Father Lung cancer Sister Family Status - Relation Status Age at Mother Father Sister Normal [facility] Orders Only [id number] Strausbaugh,Aby S 1965 F Date Provider Department Center 12/26/2024 Wolf2-RAMU PERRIN [facility] 2A Second Fl Family History Problem Relation Age of Onset Lung cancer Mother No Known Problems Father Lung cancer Sister Family Status - Relation Status Age at Mother Father Sister Normal [facility] Orders Only [id number] Strausbaugh,Aby S 1965 F Date Provider Department Center 12/26/2024 1883-USHA DURON [facility] 2A Second Fl Family History Problem Relation Age of Onset Lung cancer Mother No Known Problems Father Lung cancer Sister Family Status - Relation Status Age at Mother Father Sister Normal [facility] 36on 12-25-2024 36 Patient has not hear d from the [facility] about scheduling this, she is going to reach out to them directly, but could someone reach out to the [facility] about what's going on? Normal [facility] Orders Onlyon 12-25-2024 Orders Only [id number] Strausbaugh,Aby S 1965 F Date Provider Department Center 12/25/2024 175Mode-GIBSON GARCIA [facility] 2A Second Fl Family History Problem Relation Age of Onset Lung cancer Mother No Known Problems Father Lung cancer Sister Family Status - Relation Status Age at Mother Father Sister Normal [facility] Orders Only [id number] Aby Madrigal S 1965 F Date Provider Department Center 12/25/2024 Rupert-JOSE PRICE INF DCC Family History Problem Relation Age of Onset Lung cancer Mother No Known Problems Father Lung cancer Sister Family Status - Relation Status Age at Mother Father Sister [facility] 36on 12-12-2024 36 Antonio I signed the orders for saline infusion test back on Oct 12 (its a Therapy Plan) Can we call the [facility] and ask what more do they need to get the patient scheduled thanks [facility] 36on 12-08-2024 36 Patient had not hear d from the [facility] about scheduling a Saline Infusion Test, when I look into the chart, I cannot find any orders [facility] Telephoneon 12-08-2024 Telephone [id number] Aby Madrigal S 1965 F Date Provider Department Center 12/08/2024 [id number], [facility] ENDOCR [facility] Family History Problem Relation Age of Onset Lung cancer Mother No Known Problems Father Lung cancer Sister Family Status - Relation Status Age at Mother Father Sister Normal [facility] Abstracton 11-21-2024 Abstract [id number] Aby Madrigal S 1965 F Date Provider Department Center 11/21/202476500-SHNKTI-CKPDARA CARTER ONC DCC Family History Problem Relation Age of Onset Lung cancer Mother No Known Problems Father Lung cancer Sister Family Status - Relation Status Age at Mother Father Sister Normal [facility] CT CHEST WO IV CONTRASTon [...] Marlon Green MD. 5 Invalid Interpretation Code [facility] Office Visiton 10-26-2024 Follow-up visit [id number] Aby Madrigal 1965 F Date Provider Department Center 10/26/2024 Julio C-RICHA VIRAMONTES [facility]C DCC Family History Problem Relation Age of Onset Lung cancer Mother No Known Problems Father Lung cancer Sister Family Status - Relation Status Age at Mother Father Sister Level of Service:58967 UT OFFICE/OUTPATIENT ESTABLISHED SF MDM 10 MIN (GC) Reason for Visit and Comments: Follow-up [309845] - F/U to review CT scan that was done today. Normal [facility] 29on 10-03-2024 29 Addended by: FENG CHRISTIE on: 10/12/2024 10:02 AM Modules accepted: Orders Normal [facility] 37on 10-03-2024 37 It was [...] called a saline infusion test at the [facility] they will be in contact with you likely within the next week. This is a 2-hour test in which we infused saline 2 L and assess any changes in your aldosterone level. This is in a monitored setting so you will not be alone. Normal [facility] Follow-Upon 10-03-2024 Follow-Up [id number] Aby Madrigal 1965 F Date Provider Department Center 10/03/2024 60672-FQFPH, [facility] ENDOCR [facility] Family History Problem Relation Age of Onset Lung cancer Mother No Known Problems Father Lung cancer Sister Family Status - Relation Status Age at Mother Father Sister Level of Service:57771 UT OFFICE/OUTPATIENT ESTABLISHED MOD MDM 30 MIN Reason for Visit and Comments: Follow-up [461732] Normal [facility] Office Visiton 09-04-2024 Follow-up visit [id number] Aby Madrigal 1965 F Date Provider Department Center 09/04/2024 Octavio-GOMEZ SPENCE RIAZ [facility] Family History Problem Relation Age of Onset Lung cancer Mother No Known Problems Father Lung cancer Sister Family Status - Relation Status Age at Mother Father Sister Level of Service:77962 [place] OFFICE/OUTPATIENT ESTABLISHED MOD MDM 30 MIN Normal [facility] ALDOSTERONEon 08-29-2024 ALDOSTERONE (NG/DL) IN SER/PLAS 13.0 ng/dL Normal [facility] Comment on above: [...] reference intervals for this test in the [facility] Test Directory ([employer]). Performed By: [facility] [address] [place] [address] Diet Assistant: Navneet Simeon MD, PhD CLIA Number: [id number] Performed By: #### L [id number] #### [facility] (DEMETRAJOSE) [address] [place] [address] Ron 08-29-2024 ALT [Catalytic activity/Vol] 25 U/L Normal 7-52 [facility] Comment on above: Performed By: #### L [id number] #### [facility] (BEAKER) [address] [place] [address] Riki 08-29-2024 AST [Catalytic activity/Vol] 21 U/L Normal 13-39 [facility] Comment on above: Performed By: #### L [id number] #### [facility] (BEAKER) [address] [place] [address] BASIC METABOLIC PANELon 10-0 Anion gap [Moles/Vol] 12 mmol/L Normal 7-20 [facility] Comment on above: Performed By: #### L [id number] #### [facility] (BEAKER) [address] [place] [address] Calcium [Mass/Vol] 9.3 mg/dL Normal 8.6-10.3 [facility] Comment on above: Performed By: #### L [id number] #### [facility] (BEAKER) [address] [place] [address] Chloride [Moles/Vol] 105 mmol/L Normal 98-107 [facility] Comment on above: Performed By: #### L [id number] #### [facility] (BEAKER) [address] [place] [address] CO2 [Moles/Vol] 28 mmol/L Normal 21-31 [facility] Comment on above: Performed By: #### L [id number] #### [facility] (BEAKER) [address] [place] [address] Creatinine [Mass/Vol] 0.95 mg/dL Normal 0.60-1.20 [facility] Comment on above: Performed By: #### L [id number] #### [facility] (BE[facility]ER) [address] [place] [address] GLOMERULAR FILTRATION RATE ML/MIN/1.73 SQ M.PREDICTED 68.6 mL/min/1.73m*2 Normal >60.0 [facility] Comment on above: Result Comment: [facility]???s estimated glomerular filtration rate (eGFR) [...] By: #### L [id number] #### [facility] ([facility] [address] [place] [address] Glucose [Mass/Vol] 99 mg/dL Normal 70-100 [facility] Comment on above: Performed By: #### L [id number] #### [facility] ([facility] [address] [place] [address] Potassium [Moles/Vol] 3.6 mmol/L Normal 3.5-5.1 [facility] Comment on above: Performed By: #### L [id number] #### [facility] ([facility] [address] [place] [address] Sodium [Moles/Vol] 141 mmol/L Normal 136-145 [facility] Comment on above: Performed By: #### L [id number] #### [facility] ([facility] [address] [place] [address] Urea nitrogen [Mass/Vol] 19 mg/dL Normal 7-25 [facility] Comment on above: Performed By: #### L [id number] #### [facility] ([facility] [address] [place] [address] UREA NITROGEN/CREATININE (MASS RATIO) IN SER/PLAS 20.0 Normal [facility] Comment on above: Performed By: #### L [id number] #### [facility] ([facility] [address] [place] [address] CORTISOLon 08-29-2024 CORTISOL (UG/DL) IN SER/PLAS 6.1 ug/dL Normal 0-9 [facility] Comment on above: Performed By: #### L [id number] #### [facility] (BEAKER) [address] [place] [address] CT ABDOMEN PELVIS W AND WO I [...] Marybeth Bryan. [address] Invalid Interpretation Code [facility] DEXAMETHASONE LEVELon 2023 DEXAMETHASONE <50.0 Normal [facility] Comment on above: Order Comment: [...] developed and its performance characteristics determined by [facility]. It has not been cleared or approved by the US Food and Drug Administration. This test was performed in a CLIA certified laboratory and is intended for clinical purposes. Performed By: [facility] [address] [place] [id number] Diet Assistant: Navneet Simeon MD, PhD CLIA Number: [id number] Performed By: #### L [id number] #### [facility] (BEAKER) [address] [place] [address] LIPID PANELon 08-29-2024 CHOL/HDL 2.4 mg/dL Normal [facility] Comment on above: Performed By: #### L [id number] #### [facility] (BEAKER) [address] [place] [address] Cholesterol [Mass/Vol] 80 mg/dL Low 120-200 [facility] Comment on above: Performed By: #### L [id number] #### [facility] (BEAKER) [address] [place] [address] Magnesium [Mass/Vol] 96 mg/dL Normal 40-149 [facility] Comment on above: Result Comment: TRIG LYCERIDE REFERENCE RANGE: 20 YEARS AND OLDER CARDIOVASCULAR RISK LESS THAN 150 mg/dL LOW RISK 150 TO 199 mg/dL BORDERLINE RISK 200 mg/dL AND GREATER HIGH RISK Performed By: #### L [id number] #### [facility] (BEAKER) [address] [place] [address] Magnesium [Mass/Vol] 28 mg/dL Normal 0-160 [facility] Comment on above: Performed By: #### L [id number] #### [facility] (BEAKER) [address] [place] [address] Magnesium [Mass/Vol] 33 mg/dL Normal 23-92 [facility] Comment on above: Performed By: #### L [id number] #### [facility] (BEAKER) [address] [place] [address] NON HDL CHOL. (LDL+VLDL) 47 Normal [facility] Comment on above: Performed By: #### L [id number] #### [facility] (BEAKER) [address] [place] [address] TOTAL VLDL-C 19 mg/dL Normal 0-40 [facility] Comment on above: Performed By: #### L [id number] #### [facility] (BEAKER) [address] [place] [address] Labon 08-29-2024 Lab [id number] Aby Madrigal 1965 F Date Provider Department Center 08/29/2024 2245-[facility] OPD LAB RESOURCE [facility] OPD DC Medical C Family History Problem Relation Age of Onset Lung cancer Mother No Known Problems Father Lung cancer Sister Family Status - Relation Status Age at Mother Father Sister Normal [facility] RENIN ACTIVITYon 08-29-2024 RENIN ACTIVITY <0.1 Normal [facility] Comment on above: [...] developed and its performance characteristics determined by [facility]. It has not been cleared or approved by the US Food and Drug Administration. This test was performed in a CLIA certified laboratory and is intended for clinical purposes. Performed By: [facility] [address] [place] [address] Diet Assistant: Navneet Simeon MD, PhD CLIA Number: [id number] Performed By: #### L [id number] #### [facility] (BEAKER) [address] [place] [address] 36on 08-10-2024 36 Updated patient on Nodify blood test results and plan for f/u CT and appt scheduled for 10/26/24. [facility] Letter (Out)on 08-09-2024 Letter (Out) [id number] Aby Madrigal 1965 F Date Provider Department Center 08/09/2024 None-None [facility] ADMIT None Family History Problem Relation Age of Onset Lung cancer Mother No Known Problems Father Lung cancer Sister Family Status - Relation Status Age at Mother Father Sister [facility] 36on 08-08-2024 36 Called patient over the phone at 9:17 AM - discussed recent lab results from [place] (including M cortisol of 1.7 after dex, renin undetectable, aldosterone level 4.4) - ruled out autonomous cortisol production - she has stopped spironolactone for about 2 weeks now, continue to hold this until our next appt and we will reassess ARR. We will meet again on Oct 03 She thanked me for the call [facility] Orders Onlyon 08-08-2024 Orders Only [id number] Aby Madrigal S 1965 F Date Provider Department Center 08/08/2024 Julio C-RICHA VIRAMONTES [facility] ONC DCC Family History Problem Relation Age of Onset Lung cancer Mother No Known Problems Father Lung cancer Sister Family Status - Relation Status Age at Mother Father Sister [facility] Telephoneon 08-08-2024 Telephone [id number] Aby Madrigal 1965 F Date Provider Department Center 08/08/2024 [id number], FENG [facility] ENDOCR [facility] Family History Problem Relation Age of Onset Lung cancer Mother No Known Problems Father Lung cancer Sister Family Status - Relation Status Age at Mother Father Sister Normal [facility] Telemedicineon 07-20-2024 Telemedicine [id number] Aby Madrigal 1965 F Date Provider Department Center 07/20/2024 383-RICHA VIRAMONTES ONC DCC Family History Problem Relation Age of Onset Lung cancer Mother No Known Problems Father Lung cancer Sister Family Status - Relation Status Age at Mother Father Sister Level of Service:44850 [place] PHYS/QHP TELEPHONE EVALUATION 21-30 MIN () Reason for Visit and Comments: New Patient [632] - 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 CT CHEST 04-21-24- PET 06-21-24 Films requested 07-18-24 HAVING HARD TIME GETTING FILMS [facility]. Ginny at [facility] ([phone] direct line) is working on sending them. CHECK [facility] FOR FILMS PLEASE Normal [facility] 37on 07-18-2024 37 It was [...] lab work done at one of these [facility] Lab Sites The results will then come straight to me I appreciate it [facility] [address], [place] Hours Wednesday - Wednesday 8 AM - 4PM (Closed 12 - 12:30 PM daily) Phone: [facility] [address] [place] Hours: Wednesday - Wednesday 6 AM - 5 PM day: 7 AM - 2 PM Phone: [address] [place] Hours: Wednesday - Wednesday 7 AM - 3:30 PM Phone: [facility] [address] [place] Hours: Wednesday - Wednesday 7 AM - 5:30 PM Phone: Kayy Maurer [facility] [address], [place] Hours: Wednesday - Wednesday 8 AM - 4:30 PM Phone: [facility] EDNURSon 07-18-2024 EDNURS ADR and relevant inf o reported to [facility] in pharmacy d/t safety net being down. Viet Kelly RN 07/18/24 1133 [facility] EDNURS SENT FROM MD OFFICE RE: LOW BP; RECENT DC FROM [facility] FOR SAME [facility] EDPROVon 07-18-2024 EDPROV [...] new meds yesterday. History provided by: Patient tallow refiner used: No [place] Coma Scale Score: 15 Patient History Past Medical History: Diagnosis Date Abnormal ECG Diabetes mellitus (CMS/HCC) Hyperlipidemia Hypertension Obstructive sleep apnea Panic attacks Stroke ([facility]) Past Surgical History: Procedure Laterality Date [...] [facility] Office Visiton 07-18-2024 Follow-up visit [id number] Aby Madrigal Cristina 1965 Date Provider Department [place] 07/18/2024 [id number] [facility] Family History Problem Relation Age of Onset Lung cancer Mother No Known Problems Father Lung cancer Sister Family Status - Relation Status Age at Mother Father Sister Level of Service:50289 [place] OFFICE/OUTPATIENT NEW MODERATE MDM 45 MINUTES Reason for Visit and Comments: Nodules [Other] [facility] Follow-up visit [id number] EmmadamianAby spence Cristina 1965 Provider Department [place] 07/18/[id number] [facility] Family History Problem Relation Age of Onset Lung cancer Mother No Known Problems Father Lung cancer Sister Family Status - Relation Status Age at Mother Father Sister Level of Service:[facility] [place]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 I am calling you to [...] Patient Name Aby Madrigal Date 07/13/24 Normal [facility] Telephoneon 07-13-2024 Telephone [id number] Aby aMdrigal 1965 F Date Provider Department Center 07/13[facility]2024 [facility] Problem Relation Age of Onset Lung cancer Mother No Known Problems Father Lung cancer Sister Family Status - Relation Status Age at Mother Father Sister Reason for Visit and Comments: Hospital Follow-up [832] Normal [facility] 30on 07-12-2024 30 The patient [...] to address these barriers include . Normal [facility] ANTI-XA (HEPARIN LEVEL)on HEPARIN UNFRACTIONATED (U/ML) IN PPP BY CHROMOGENIC METHOD 0.60 IU/mL Normal 0.3-0.7 [facility] Comment on above: Order Comment: Check anti-Xa level every 6 hours while on heparin infusion, or per protocol. Result Comment: [place]ha roxaban and Apixaban will interfere with the anti Xa assay used to monitor UFH and LMWH. Performed By: #### L [id number] #### [facility] (BEAKER) [address] [place] [address] BASIC METABOLIC PANELon 08-2 Anion gap [Moles/Vol] 10 mmol/L Normal 7-20 [facility] Comment on above: Performed By: #### L [id number] #### [facility] (BEAKER) [address] [place] [address] Calcium [Mass/Vol] 8.8 mg/dL Normal 8.6-10.3 [facility] Comment on above: Performed By: #### L [id number] #### [facility] (BEAKER) [address] [place] [address] Chloride [Moles/Vol] 108 mmol/L High 98-107 [facility] Comment on above: Performed By: #### L [id number] #### [facility] ([facility] [address] [place] [address] CO2 [Moles/Vol] 27 mmol/L Normal 21-31 [facility] Comment on above: Performed By: #### L [id number] #### [facility] ([facility] [address] [place] [address] Creatinine [Mass/Vol] 0.89 mg/dL Normal 0.60-1.20 [facility] Comment on above: Performed By: #### L [id number] #### [facility] ([facility] [address] [place] [address] GLOMERULAR FILTRATION RATE ML/MIN/1.73 SQ M.PREDICTED 74.2 mL/min/1.73m*2 Normal >60.0 [facility] Comment on above: Result Comment: [facility]???s estimated glomerular filtration rate (eGFR) [...] individuals. Performed By: #### L [id number] #### [facility] ([facility] [address] [place] [address] Glucose [Mass/Vol] 109 mg/dL High 70-100 [facility] Comment on above: Performed By: #### L [id number] #### [facility] (BEAKER) [address] [place] [address] Potassium [Moles/Vol] 3.4 mmol/L Low 3.5-5.1 [facility] Comment on above: Performed By: #### L [id number] #### [facility] (BEAKER) [address] [place] [address] Sodium [Moles/Vol] 142 mmol/L Normal 136-145 [facility] Comment on above: Performed By: #### L [id number] #### [facility] (BEAKER) [address] [place] [address] Urea nitrogen [Mass/Vol] 11 mg/dL Normal 7-25 [facility] Comment on above: Performed By: #### L [id number] #### [facility] ([facility]ER) [address] [place] [address] UREA NITROGEN/CREATININE (MASS RATIO) IN SER/PLAS 12.4 Normal [facility] Comment on above: Performed By: #### L [id number] #### [facility] (BEAKER) [address] [place] [address] CBC WITH AUTO DIFFERENTIALon 07-12-2024 Basophils (Bld) [#/Vol] 0.04 10*3/uL Normal 0.00-0.20 [facility] Comment on above: Performed By: #### L [id number] #### [facility] (BEAKER) [address] [place] [address] Basophils/100 WBC (Bld) 0.6 % Normal 0.0-1.0 [facility] Comment on above: Performed By: #### L [id number] #### [facility] (BEAKER) [address] [place] [address] Eosinophils (Bld) [#/Vol] 0.22 10*3/uL Normal 0.00-0.50 [facility] Comment on above: Performed By: #### L [id number] #### [facility] (BEAKER) [address] [place] [address] Eosinophils/100 WBC (Bld) 3.5 % Normal 0.0-6.0 [facility] Comment on above: Performed By: #### L [id number] #### [facility] ([facility] [address] [place] [address] Erythrocyte distribution width (RBC) [Ratio] 14.5 % Normal 11.5-15.0 [facility] Comment on above: Performed By: #### L [id number] #### [facility] ([facility]) [address] [place] [address] ERYTHROCYTE MEAN CORPUSCULAR HEMOGLOBIN CONCENTRATION (G/DL) BY AUTOMATED 32.7 g/dL Normal 32.0-35.0 [facility] Comment on above: Performed By: #### L [id number] #### [facility] ([facility]) [address] [place] [address] Hematocrit (Bld) [Volume fraction] 34.2 % Low 36.0-48.0 [facility] Comment on above: Performed By: #### L [id number] #### [facility] ([facility] [address] [place] [address] Hemoglobin (Bld) [Mass/Vol] 11.2 g/dL Low 12.0-15.0 [facility] Comment on above: Performed By: #### L [id number] #### [facility] ([facility]) [address] [place] [address] Immature granulocytes (Bld) [#/Vol] 0.01 10*3/uL Normal 0.00-0.20 [facility] Comment on above: Performed By: #### L [id number] #### [facility] (BEAKER) [address] [place] [address] Immature granulocytes/100 WBC (Bld) 0.2 % Normal 0.0-1.0 [facility] Comment on above: Performed By: #### L [id number] #### [facility] (BEAKER) [address] [place] [address] Lymphocytes (Bld) [#/Vol] 2.37 10*3/uL Normal 1.20-4.00 [facility] Comment on above: Performed By: #### L [id number] #### [facility] ([facility] [address] [place] [address] Lymphocytes/100 WBC (Bld) 37.8 % Normal 20.0-45.0 [facility] Comment on above: Performed By: #### L [id number] #### [facility] ([facility]) [address] [place] [address] MCH (RBC) [Entitic mass] 27.4 pg Normal 27.0-33.0 [facility] Comment on above: Performed By: #### L [id number] #### [facility] ([facility] [address] [place] [address] MCV (RBC) [Entitic vol] 83.6 fL Normal 82.0-98.0 [facility] Comment on above: Performed By: #### L [id number] #### [facility] ([facility]) [address] [place] [address] Monocytes (Bld) [#/Vol] 0.43 10*3/uL Normal 0.10-1.00 [facility] Comment on above: Performed By: #### L [id number] #### [facility] (BEAKER) [address] [place] [address] Monocytes/100 WBC (Bld) 6.9 % Normal 5.0-12.0 [facility] Comment on above: Performed By: #### L [id number] #### [facility] (BEAKER) [address] [place] [address] Neutrophils (Bld) [#/Vol] 3.20 10*3/uL Normal 1.60-7.60 [facility] Comment on above: Performed By: #### L [id number] #### [facility] (BEAKER) [address] [place] [address] Neutrophils/100 WBC (Bld) 51.0 % Normal 40.0-72.0 [facility] Comment on above: Performed By: #### L [id number] #### [facility] ([facility]) [address] [place] [address] NRBC (PER 100 WBCS) BY AUTOMATED COUNT 0.0 % Normal 0 [facility] Comment on above: Performed By: #### L [id number] #### [facility] ([facility]) [address] [place] [address] PLATELETS (10*3/UL) IN BLOOD AUTOMATED COUNT 223 10*3/uL Normal 150-400 [facility] Comment on above: Performed By: #### L [id number] #### [facility] ([facility]) [address] [place] [address] RBC (Bld) [#/Vol] 4.09 10*6/uL Normal 3.80-5.00 [facility] Comment on above: Performed By: #### L [id number] #### [facility] ([facility]) [address] [place] [address] WBC (Bld) [#/Vol] 6.27 10*3/uL Normal 4.00-10.60 [facility] Comment on above: Performed By: #### L [id number] #### [facility] ([facility]) [address] [place] [address] MAGNESIUMon 07-12-2024 Magnesium [Mass/Vol] 1.7 mg/dL Low 1.9-2.7 [facility] Comment on above: Performed By: #### L [id number] #### [facility] ([facility]) [address] [place] [address] POCT GLUCOSE METER UNSOLICIT ED RESULTSon 07-12-2024 Glucose [Mass/Vol] 102 mg/dL Normal 70-105 [facility] Comment on above: Order Comment: Waive d Testing in the ED is performed under the ED CLIA certificate #[id number]. Result Comment: [email or web address] [email or web address] Performed By: #### L [id number] #### [facility] (BEAKER) [address] [place] [address] TROPONIN Ion 07-12-2024 Troponin I.cardiac [Mass/Vol] 0.01 ng/mL Normal 0.00-0.04 [facility] Comment on above: Performed By: #### L [id number] #### [facility] (BEAKER) [address] [place] [address] 30on 07-11-2024 30 The patient is Moderately [...] and maintained or improved Outcome: Progressing Normal [facility] 30 The patient is Moderately [...] to address these barriers include . Normal [facility] ALDOSTERONEon 07-11-2024 ALDOSTERONE (NG/DL) IN SER/PLAS 4.9 ng/dL Normal [facility] Comment on above: [...] reference intervals for this test in the [facility] Directory ([employer]). Performed By: [employer] [place] [address] Diet Assistant: Navneet Simeon MD, PhD CLIA Number: [id number] Performed By: #### L [id number] #### [facility] ([facility]) [address] [place] [address] ANTI-XA (HEPARIN LEVEL)on HEPARIN UNFRACTIONATED (U/ML) IN PPP BY CHROMOGENIC METHOD 0.42 IU/mL Normal 0.3-0.7 [facility] Comment on above: Order Comment: Check anti-Xa level every 6 hours while on heparin infusion, or per protocol. Result Comment: [place] roxaban and Apixaban will interfere with the anti Xa assay used to monitor UFH and LMWH. Performed By: #### L [id number] #### [facility] ([facility]) [address] [place] [address] HEPARIN UNFRACTIONATED (U/ML) IN PPP BY CHROMOGENIC METHOD 0.20 IU/mL Low 0.3-0.7 [facility] Comment on above: Order Comment: Check anti-Xa level every 6 hours while on heparin infusion, or per protocol. Result Comment: [place] roxaban and Apixaban will interfere with the anti Xa assay used to monitor UFH and LMWH. Performed By: #### L [id number] #### [facility] ([facility]) [address] [place] [address] APTTon 07-11-2024 ACTIVATED PARTIAL THROMBOPLASTIN TIME IN PPP BY COAGULATION ASSAY 43.0 Seconds High 25.0-35.0 [facility] Comment on above: Result Comment: Clin ical significance of the APTT is questionable in the presence of heparin. Performed By: #### L [id number] #### [facility] ([facility]) [address] [place] [address] BASIC METABOLIC PANELon 06-23 Anion gap [Moles/Vol] 9 mmol/L Normal -20 [facility] Comment on above: Performed By: #### L [id number] #### [facility] ([facility]) [address] [place] [address] Calcium [Mass/Vol] 8.8 mg/dL Normal 8.6-10.3 [facility] Comment on above: Performed By: #### L [id number] #### [facility] ([facility]) [address] [place] [address] Chloride [Moles/Vol] 108 mmol/L High 98-107 [facility] Comment on above: Performed By: #### L [id number] #### [facility] ([facility]) [address] [place] [address] CO2 [Moles/Vol] 28 mmol/L Normal 21-31 [facility] Comment on above: Performed By: #### L [id number] #### [facility] ([facility]) [address] [place] [address] Creatinine [Mass/Vol] 1.09 mg/dL Normal 0.60-1.20 [facility] Comment on above: Performed By: #### L [id number] #### [facility] ([facility]) [address] [place] [address] GLOMERULAR FILTRATION RATE ML/MIN/1.73 SQ M.PREDICTED 58.2 mL/min/1.73m*2 Low >60.0 [facility] Comment on above: Result Comment: [facility]???s estimated glomerular filtration rate (eGFR) [...] group of individuals. Performed By: #### L [id number] #### [facility] ([facility]) [address] [place] [address] Glucose [Mass/Vol] 113 mg/dL High 70-100 [facility] Comment on above: Performed By: #### L [id number] #### [facility] ([facility] [address] [place] [address] Potassium [Moles/Vol] 3.4 mmol/L Low 3.5-5.1 [facility] Comment on above: Performed By: #### L [id number] #### [facility] ([facility] [address] [place] [address] Sodium [Moles/Vol] 142 mmol/L Normal 136-145 [facility] Comment on above: Performed By: #### L [id number] #### [facility] ([facility]) [address] [place] [address] Urea nitrogen [Mass/Vol] 14 mg/dL Normal 7-25 [facility] Comment on above: Performed By: #### L [id number] #### [facility] ([facility]) [address] [place] [address] UREA NITROGEN/CREATININE (MASS RATIO) IN SER/PLAS 12.8 Normal [facility] Comment on above: Performed By: #### L [id number] #### [facility] ([facility]) [address] [place] [address] CBC WITH AUTO DIFFERENTIALon 07-11-2024 Basophils (Bld) [#/Vol] 0.04 10*3/uL Normal 0.00-0.20 [facility] Comment on above: Performed By: #### L [id number] #### [facility] ([facility] [address] [place] [address] Basophils/100 WBC (Bld) 0.6 % Normal 0.0-1.0 [facility] Comment on above: Performed By: #### L [id number] #### [facility] ([facility] [address] [place] [address] Eosinophils (Bld) [#/Vol] 0.16 10*3/uL Normal 0.00-0.50 [facility] Comment on above: Performed By: #### L [id number] #### [facility] ([facility]) [address] [place] [address] Eosinophils/100 WBC (Bld) 2.2 % Normal 0.0-6.0 [facility] Comment on above: Performed By: #### L [id number] #### [facility] ([facility]) [address] [place] [address] Erythrocyte distribution width (RBC) [Ratio] 14.6 % Normal 11.5-15.0 [facility] Comment on above: Performed By: #### L [id number] #### [facility] ([facility]) [address] [place] [address] ERYTHROCYTE MEAN CORPUSCULAR HEMOGLOBIN CONCENTRATION (G/DL) BY AUTOMATED 32.0 g/dL Normal 32.0-35.0 [facility] Comment on above: Performed By: #### L [id number] #### [facility] ([facility]) [address] [place] [address] Hematocrit (Bld) [Volume fraction] 36.2 % Normal 36.0-48.0 [facility] Comment on above: Performed By: #### L [id number] #### [facility] ([facility]) [address] [place] [address] Hemoglobin (Bld) [Mass/Vol] 11.6 g/dL Low 12.0-15.0 [facility] Comment on above: Performed By: #### L [id number] #### [facility] ([facility]) [address] [place] [address] Immature granulocytes (Bld) [#/Vol] 0.02 10*3/uL Normal 0.00-0.20 [facility] Comment on above: Performed By: #### L [id number] #### [facility] ([facility]) [address] [place] [address] Immature granulocytes/100 WBC (Bld) 0.3 % Normal 0.0-1.0 [facility] Comment on above: Performed By: #### L [id number] #### [facility] ([facility]) [address] [place] [address] Lymphocytes (Bld) [#/Vol] 2.34 10*3/uL Normal 1.20-4.00 [facility] Comment on above: Performed By: #### L [id number] #### [facility] ([facility]) [address] [place] [address] Lymphocytes/100 WBC (Bld) 32.6 % Normal 20.0-45.0 [facility] Comment on above: Performed By: #### L [id number] #### [facility] ([facility] [address] [place] [address] MCH (RBC) [Entitic mass] 27.2 pg Normal 27.0-33.0 [facility] Comment on above: Performed By: #### L [id number] #### [facility] ([facility] [address] [place] [address] MCV (RBC) [Entitic vol] 85.0 fL Normal 82.0-98.0 [facility] Comment on above: Performed By: #### L [id number] #### [facility] ([facility] [address] [place] [address] Monocytes (Bld) [#/Vol] 0.49 10*3/uL Normal 0.10-1.00 [facility] Comment on above: Performed By: #### L [id number] #### [facility] ([facility]) [address] [place] [address] Monocytes/100 WBC (Bld) 6.8 % Normal 5.0-12.0 [facility] Comment on above: Performed By: #### L [id number] #### [facility] ([facility]) [address] [place] [address] Neutrophils (Bld) [#/Vol] 4.13 10*3/uL Normal 1.60-7.60 [facility] Comment on above: Performed By: #### L [id number] #### [facility] ([facility]) [address] [place] [address] Neutrophils/100 WBC (Bld) 57.5 % Normal 40.0-72.0 [facility] Comment on above: Performed By: #### L [id number] #### [facility] ([facility]) [address] [place] [address] NRBC (PER 100 WBCS) BY AUTOMATED COUNT 0.0 % Normal 0 [facility] Comment on above: Performed By: #### L [id number] #### [facility] ([facility]) [address] [place] [address] PLATELETS (10*3/UL) IN BLOOD AUTOMATED COUNT 245 10*3/uL Normal 150-400 [facility] Comment on above: Performed By: #### L [id number] #### [facility] ([facility]) [address] [place] [address] RBC (Bld) [#/Vol] 4.26 10*6/uL Normal 3.80-5.00 [facility] Comment on above: Performed By: #### L [id number] #### [facility] ([facility]) [address] [place] [address] WBC (Bld) [#/Vol] 7.18 10*3/uL Normal 4.00-10.60 [facility] Comment on above: Performed By: #### L [id number] #### [facility] ([facility]) [address] [place] [address] CONSULTon 07-11-2024 CONSULT -- Attestation signed by [...] Brown is the endocrine surgeon in the [place] area that would be most appropriate and [...] patient is presenting as a transfer from [facility] for the evaluation of chest pain. [...] Value Ventricular Rate 56 Atrial Rate 56 UT Interval 180 QRS DURATION 94 QT Interval 430 QTC (more content not included)... Normal [facility] EDPROVon 07-11-2024 EDPROV HPI Chief [...] Pt states she was trasnfered here from [place] be transferred to cardiology. Pt states she had a cardiac stent placed last week. She denies fever, coughing, vomiting, abdominal pain. She admits diarrhea. She felt better when given ativan and worse when she was given morphine. She has had her gallbladder removed. History provided by: Patient tallow refiner used: No Chest Pain Associated symptoms: no [...] Making IBasilia, documented on behalf of Dr. Jacobson. Chief complaint chest pain Plan of Care: APTT, Troponin I, CBC, Protime-INR, BMP Attestation: Provider Statement SALVADOR: Provider Statement 2nd Scribe. By electronically signing this emergency patient record, the Emergency Physician/SLOT EDITOR/PA-C attests that all entries made into the electronic medical record by the scribe prior to the Physician/SLOT EDITOR/PA-C signature reflect an accurate accounting of the evaluation and care rendered by that Emergency Physician/SLOT EDITOR/PA-C. The Emergency Physician/SLOT EDITOR/PA-C assumes full responsibility for those entries. The Emergency Physician/SLOT EDITOR/PA-C also attests that any patient testing or treatment that was instituted by nursing staff. Normal [facility] EDPROV HPI Chief Complaint Patient [...] Pt states she was trasnfered here from [place] to be transferred to cardiology. Pt states she had a cardiac stent placed last week. She denies fever, coughing, vomiting, abdominal pain. She admits diarrhea. She felt better when given ativan and worse when she was given morphine. She has had her gallbladder removed. 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 Decision-making details documented in ED Course. ECG/medicine tests: ordered and independent interpretation performed. Decision-making details documented in ED Course. Risk Drug therapy requiring intensive monitoring for toxicity. Decision regarding hospitalization. Minor surgery with identified risk factors. Basilia Butts (more content not included)... Invalid Interpretation Code [facility] POCT GLUCOSE METER UNSOLICIT ED RESULTSon 07-11-2024 Glucose [Mass/Vol] 122 mg/dL High 70-105 [facility] Comment on above: Order Comment: Waive d Testing in the ED is performed under the ED CLIA certificate #[id number]. Result Comment: [email or web address] Performed By: #### L [id number] #### [facility] ([facility]) [address] [place] [address] PROTIME-INRon 07-11-2024 INR IN PPP BY COAGULATION ASSAY 1.00 Normal 0.90-1.10 [facility] Comment on above: Result [...] 1995;[id number]. Performed By: #### L [id number] #### [facility] ([facility]) [address] [place] [address] PROTHROMBIN TIME (PT) IN PPP BY COAGULATION ASSAY 13.2 Seconds Normal 12.3-14.8 [facility] Comment on above: Performed By: #### L [id number] #### [facility] ([facility]) [address] [place] [address] RENIN ACTIVITYon 07-11-2024 RENIN ACTIVITY <0.1 Normal [facility] Comment on above: Result Comment: INTE RPRETIVE INFORMATION: Renin Activity Adult, Normal sodium diet: Supine ................. 0.2-1.6 ng/mL/hr Upright ................ 0.5-4.0 ng/mL/hr Children, Normal sodium diet, Supine: Smoaks (1-7 days) ..... 2.0-35.0 ng/mL/hr Cord blood [...] developed and its performance characteristics determined by [facility]. It has not been cleared or approved by the [place] Food and Drug Administration. This test was performed in a CLIA certified laboratory and is intended for clinical purposes. Performed By: [facility] [address] [place] [id number] Diet Assistant: Navneet Simeon MD, PhD CLIA Number: [id number] Performed By: #### L [id number] #### [facility] ([facility]) [address] [place] [address] TROPONIN Ion 07-11-2024 Troponin I.cardiac [Mass/Vol] 0.01 ng/mL Normal 0.00-0.04 [facility] Comment on above: Performed By: #### L [id number] #### [facility] ([facility]) [address] [place] [address] Office Visiton 07-10-2024 Follow-up visit [id number] Aby Madrigal 1965 F Date Provider Department Center 07/10/2024 BIJAN LAWLER Family History Problem Relation Age of Onset Lung cancer Mother No Known Problems Father Lung cancer Sister Family Status - Relation Status Age at Mother Father Sister Level of Service:81395 UT OFFICE/OUTPATIENT ESTABLISHED MOD MDM 30 MIN Reason for Visit and Comments: Coronary Artery Disease [187] Post-Cath [731] Normal [facility] 36on 07-03-2024 36 Post Discharge Call Good morning, I am Ginny Garcia, RN a lead nurse from [facility]. I am calling you to [...] Patient Name Aby Madrigal Date 07/03/24 Normal [facility] Telephoneon 07-03-2024 Telephone [id number] Aby Madrigal 1965 F Date Provider Department Center 07/03/2024 Adela-GINNY GARCIA [facility] Family History Problem Relation Age of Onset Lung cancer Mother No Known Problems Father Lung cancer Sister Family Status - Relation Status Age at Mother Father Sister Reason for Visit and Comments: Hospital Follow-up [832] Normal [facility] 30on 07-01-2024 30 The patient [...] and maintained or improved Outcome: Progressing Normal [facility] BASIC METABOLIC PANELon 06-22 Anion gap [Moles/Vol] 14 mmol/L Normal 7-20 [facility] Comment on above: Performed By: #### L [id number] #### [facility] ([facility]) [address] [place] [address] Calcium [Mass/Vol] 8.2 mg/dL Low 8.6-10.3 [facility] Comment on above: Performed By: #### L [id number] #### [facility] ([facility]) [address] [place] [address] Chloride [Moles/Vol] 106 mmol/L Normal 98-107 [facility] Comment on above: Performed By: #### L [id number] #### [facility] ([facility]) [address] [place] [address] CO2 [Moles/Vol] 25 mmol/L Normal 21-31 [facility] Comment on above: Performed By: #### L [id number] #### [facility] ([facility]) [address] [place] [address] Creatinine [Mass/Vol] 0.91 mg/dL Normal 0.60-1.20 [facility] Comment on above: Performed By: #### L [id number] #### [facility] ([facility]) [address] [place] [address] GLOMERULAR FILTRATION RATE ML/MIN/1.73 SQ M.PREDICTED 72.2 mL/min/1.73m*2 Normal >60.0 [facility] Comment on above: Result Comment: [facility]???s estimated glomerular filtration rate (eGFR) [...] L [id number] #### [facility] ([facility]) [address] [place] [address] Glucose [Mass/Vol] 101 mg/dL High 70-100 [facility] Comment on above: Performed By: #### L [id number] #### [facility] ([facility]) [address] [address] Potassium [Moles/Vol] 3.5 mmol/L Normal 3.5-5.1 [facility] Comment on above: Performed By: #### L [id number] #### [facility] ([facility]) [address] [address] Sodium [Moles/Vol] 141 mmol/L Normal 136-145 [facility] Comment on above: Performed By: #### L [id number] #### [facility] ([facility]) [address] [address] Urea nitrogen [Mass/Vol] 13 mg/dL Normal 7-25 [facility] Comment on above: Performed By: #### L [id number] #### [facility] ([facility]) [address] [place] [address] UREA NITROGEN/CREATININE (MASS RATIO) IN SER/PLAS 14.3 Normal [facility] Comment on above: Performed By: #### L [id number] #### [facility] ([facility]) [address] [place] [address] CBCon 07-01-2024 Erythrocyte distribution width (RBC) [Ratio] 15.4 % High 11.5-15.0 [facility] Comment on above: Performed By: #### L [id number] #### [facility] [address] [place] [address] ERYTHROCYTE MEAN CORPUSCULAR HEMOGLOBIN CONCENTRATION (G/DL) BY AUTOMATED 32.1 g/dL Normal 32.0-35.0 [facility] Comment on above: Performed By: #### L [id number] #### [facility] ([facility]) [address] [place] [address] Hematocrit (Bld) [Volume fraction] 38.6 % Normal 36.0-48.0 [facility] Comment on above: Performed By: #### L [id number] #### [facility] ([facility]) [address] [place] [address] Hemoglobin (Bld) [Mass/Vol] 12.4 g/dL Normal 12.0-15.0 [facility] Comment on above: Performed By: #### L [id number] #### [facility] ([facility]) [address] [place] [address] MCH (RBC) [Entitic mass] 26.9 pg Low 27.0-33.0 [facility] Comment on above: Performed By: #### L [id number] #### [facility] ([facility]) [address] [place] [address] MCV (RBC) [Entitic vol] 83.7 fL Normal 82.0-98.0 [facility] Comment on above: Performed By: #### L [id number] #### [facility] ([facility]) [address] [place] [address] PLATELETS (10*3/UL) IN BLOOD AUTOMATED COUNT 238 10*3/uL Normal 150-400 [facility] Comment on above: Performed By: #### L [id number] #### [facility] ([facility]) [address] [place] [address] RBC (Bld) [#/Vol] 4.61 10*6/uL Normal 3.80-5.00 [facility] Comment on above: Performed By: #### L [id number] #### [facility] ([facility]) [address] [place] [address] WBC (Bld) [#/Vol] 7.04 10*3/uL Normal 4.00-10.60 [facility] Comment on above: Performed By: #### L [id number] #### [facility] ([facility]) [address] [place] [address] LIPID PANELon 07-01-2024 CHOL/HDL 3.8 mg/dL Normal [facility] Comment on above: Performed By: #### L [id number] #### [facility] ([facility]) [address] [place] [address] Cholesterol [Mass/Vol] 128 mg/dL Normal 120-200 [facility] Comment on above: Performed By: #### L [id number] #### [facility] ([facility]) [address] [place] [address] Magnesium [Mass/Vol] 87 mg/dL Normal 40-149 [facility] Comment on above: Result Comment: TRIG LYCERIDE REFERENCE RANGE: 20 YEARS AND OLDER CARDIOVASCULAR RISK LESS THAN 150 mg/dL LOW RISK 150 TO 199 mg/dL BORDERLINE RISK 200 mg/dL AND GREATER HIGH RISK Performed By: #### L [id number] #### [facility] ([facility]) [address] [place] [address] Magnesium [Mass/Vol] 77 mg/dL Normal 0-160 [facility] Comment on above: Performed By: #### L [id number] #### [facility] ([facility]) [address] [place] [address] Magnesium [Mass/Vol] 34 mg/dL Normal 23-92 [facility] Comment on above: Performed By: #### L [id number] #### [facility] ([facility]) [address] [place] [address] NON HDL CHOL. (LDL+VLDL) 94 Normal [facility] Comment on above: Performed By: #### L [id number] #### [facility] ([facility]) [address] [place] [address] TOTAL VLDL-C 17 mg/dL Normal 0-40 [facility] Comment on above: Performed By: #### L [id number] #### [facility] ([facility] [facility]) [address] [place] [address] MAGNESIUMon 07-01-2024 Magnesium [Mass/Vol] 2.0 mg/dL Normal 1.9-2.7 [facility] Comment on above: Performed By: #### L [id number] #### [facility] ([facility]) [address] [place] [address] NURSNOTEon 07-01-2024 NURSNOTE Discharge instructio ns given, reviewed, questions, answered, signed, copy received. Normal [facility] POCT GLUCOSE METER UNSOLICIT ED RESULTSon 07-01-2024 Glucose [Mass/Vol] 124 mg/dL High 70-105 [facility] Comment on above: Order Comment: Check anti-Xa level every 6 hours while on heparin infusion, or per protocol. Result Comment: [email or web address] Performed By: #### L [id number] #### [facility] ([facility]) [address] [place] [address] Glucose [Mass/Vol] 106 mg/dL High 70-105 [facility] Comment on above: Order Comment: Waive d Testing in the ED is performed under the ED CLIA certificate #[id number]. Result Comment: [email or web address] Performed By: #### L [id number] #### [facility] ([facility]) [address] [place] [address] TROPONIN Ion 07-01-2024 Troponin I.cardiac [Mass/Vol] 0.09 ng/mL High 0.00-0.04 [facility] Comment on above: Performed By: #### L [id number] #### [facility] ([facility]) [address] [place] [address] 30on 06-30-2024 30 The patient is Moderately Stable - Low risk of patient condition declining or worsening The patient's goals for the shift include comfort, rest The clinical goals for the shift include stable vitals, comfort Problem: Pain - Adult Goal: Verbalizes/displays adequate comfort level or baseline comfort level Outcome: Not Progressing Normal [facility] 30 Daily Case Managemen t [...] PT Recommendations: OT Recommendations: New Consults: Normal [facility] 30 The patient is Moderately Stable - Low risk of patient condition declining or worsening The patient's goals for the shift include COMFORT The clinical goals for the shift include VSS Over the shift, the patient did not make progress toward the following goals. Barriers to progression include . Recommendations to address these barriers include . Normal [facility] ANTI-XA (HEPARIN LEVEL)on HEPARIN UNFRACTIONATED (U/ML) IN PPP BY CHROMOGENIC METHOD 0.64 IU/mL Normal 0.3-0.7 [facility] Comment on above: Order Comment: Check anti-Xa level every 6 hours while on heparin infusion, or per protocol. Result Comment: Radha roxaban and Apixaban will interfere with the anti Xa assay used to monitor UFH and LMWH. Performed By: #### L [id number] ####[facility] ([facility])[address] [place] [address] BASIC METABOLIC PANELon 08-0 Anion gap [Moles/Vol] 11 mmol/L Normal 7-20 [facility] Comment on above: Performed By: #### L [id number] ####[facility] ([facility] [place] [address] Calcium [Mass/Vol] 8.3 mg/dL Low 8.6-10.3 [facility] Comment on above: Performed By: #### L [id number] ####[facility] ([facility])[address] [place] [address] Chloride [Moles/Vol] 110 mmol/L High 98-107 [facility] Comment on above: Performed By: #### L [id number] ####[facility] ([facility] [place] [address] CO2 [Moles/Vol] 26 mmol/L Normal 21-31 [facility] Comment on above: Performed By: #### L [id number] ####[facility] ([facility] [place] [address] Creatinine [Mass/Vol] 0.81 mg/dL Normal 0.60-1.20 [facility] Comment on above: Performed By: #### L [id number] ####[facility] ([facility] [place] [address] GLOMERULAR FILTRATION RATE ML/MIN/1.73 SQ M.PREDICTED 83.1 mL/min/1.73m*2 Normal >60.0 [facility] Comment on above: Result Comment: [facility]???s estimated glomerular filtration rate (eGFR) [...] #### L AB15 ####[facility] ([facility])[address] [place] [address] Glucose [Mass/Vol] 110 mg/dL High 70-100 [facility] Comment on above: Performed By: #### L [id number] ####[facility] ([facility])[address] [place] [address] Potassium [Moles/Vol] 3.7 mmol/L Normal 3.5-5.1 [facility] Comment on above: Performed By: #### L [id number] ####[facility] ([facility])[address] [place] [address] Sodium [Moles/Vol] 143 mmol/L Normal 136-145 [facility] Comment on above: Performed By: #### L [id number] ####[facility] ([facility])[address] [place] [address] Urea nitrogen [Mass/Vol] 10 mg/dL Normal 7-25 [facility] Comment on above: Performed By: #### L [id number] ####[facility] ([facility])[address] [place] [address] UREA NITROGEN/CREATININE (MASS RATIO) IN SER/PLAS 12.3 Normal [facility] Comment on above: Performed By: #### L [id number] ####[facility] ([facility])[address] [place] [address] CBCon 06-30-2024 Erythrocyte distribution width (RBC) [Ratio] 15.3 % High 11.5-15.0 [facility] Comment on above: Performed By: #### L [id number] ####[facility] ([facility])[address] [place] [address] ERYTHROCYTE MEAN CORPUSCULAR HEMOGLOBIN CONCENTRATION (G/DL) BY AUTOMATED 31.3 g/dL Low 32.0-35.0 [facility] Comment on above: Performed By: #### L [id number] ####[facility] ([facility] [place] [address] Hematocrit (Bld) [Volume fraction] 36.7 % Normal 36.0-48.0 [facility] Comment on above: Performed By: #### L [id number] ####[facility] ([facility] [place] [address] Hemoglobin (Bld) [Mass/Vol] 11.5 g/dL Low 12.0-15.0 [facility] Comment on above: Performed By: #### L [id number] ####[facility] ([facility])[address] [place] [address] MCH (RBC) [Entitic mass] 26.9 pg Low 27.0-33.0 [facility] Comment on above: Performed By: #### L [id number] ####[facility] ([facility])[address] [place], [place] [address] MCV (RBC) [Entitic vol] 85.7 fL Normal 82.0-98.0 [facility] Comment on above: Performed By: #### L [id number] ####[facility] ([facility])[address] [place], [place] [address] PLATELETS (10*3/UL) IN BLOOD AUTOMATED COUNT 243 10*3/uL Normal 150-400 [facility] Comment on above: Performed By: #### L [id number] ####[facility] ([facility])[address] [place] [address] RBC (Bld) [#/Vol] 4.28 10*6/uL Normal 3.80-5.00 [facility] Comment on above: Performed By: #### L [id number] ####[facility] ([facility])[address] [place], [place] [address] WBC (Bld) [#/Vol] 7.41 10*3/uL Normal 4.00-10.60 [facility] Comment on above: Performed By: #### L [id number] ####[facility] ([facility] [place] [address] CONSULTon 06-30-2024 CONSULT Cardiology Consult Note Reason for Consult: NSTEMI, transfer from [facility] HPI: Aby Madrigal, a 59 y.o. female patient, is transferred from [facility] for continuity of care. Past medical history includes: HTN History of TIA DMII HLD SURESH Overweight Patient reports that 3 days ago, she woke up in the mid of the night with indigestion, and a feeling fullness, but no pressure like chest pain. She presented to [facility], where she was found to [...] Value Ventricular Rate 71 Atrial Rate 71 UT Interval 176 QRS DURATION 92 QT Interval 424 QTC CALCULATION(BAZETT) 460 P [place] 52 R-Teasdale 19 T Wave [place] 164 Impression Normal sinus rhythm Left ventricular [...] Normal sinu (more content not included)... Normal [facility] HPon 06-30-2024 HP H&P reviewed. The patient was examined and there are no changes to the H&P. 59 y.o. year old female with a PMHx significant for DM2, hypertension presents a direct mission from [facility] with a chief complaint of chest [...] to proceed. Signed, Yris Oakley MD PGY-4 Piping Supervisor Pager: [phone] [facility] POCT GLUCOSE METER UNSOLICIT ED RESULTSon 06-30-2024 Glucose [Mass/Vol] 170 mg/dL High 70-105 [facility] Comment on above: Order Comment: Check anti-Xa level every 6 hours while on heparin infusion, or per protocol. Result Comment: [email or web address] Performed By: #### L [id number] #### [facility] ([facility]) [address] [place] [address] Glucose [Mass/Vol] 129 mg/dL High 70-105 [facility] Comment on above: Order Comment: Waive d Testing in the ED is performed under the ED CLIA certificate #[id number]. Result Comment: [email or web address] Performed By: #### L [id number] ####[facility] ([facility])[address] [place] [address] Glucose [Mass/Vol] 167 mg/dL High 70-105 [facility] Comment on above: Order Comment: Waive d Testing in the ED is performed under the ED CLIA certificate #[id number]. Result Comment: [email or web address] Performed By: #### L [id number] ####[facility] ([facility])[address] [place] [address] TROPONIN Ion 06-30-2024 Troponin I.cardiac [Mass/Vol] 0.07 ng/mL High 0.00-0.04 [facility] Comment on above: Performed By: #### L [id number] ####[facility] ([facility])[address] [place] [address] Troponin I.cardiac [Mass/Vol] 0.10 ng/mL High 0.00-0.04 [facility] Comment on above: Performed By: #### L [id number] ####[facility] ([facility])[address] [place] [address] Troponin I.cardiac [Mass/Vol] 0.11 ng/mL Critically high 0.00-0.04 [facility] Comment on above: Result Comment: M-TR OPONIN INITIAL CRITICAL HIGH; RESPUN AND RETESTED Performed By: #### L [id number] ####[facility] ([facility])[address] [place] [address] 30on 06-29-2024 30 The patient is Moderately Stable - Low risk of patient condition declining or worsening The patient's goals for the shift include COMFORT The clinical goals for the shift include VSS Normal [facility] APTTon 06-29-2024 ACTIVATED PARTIAL THROMBOPLASTIN TIME IN PPP BY COAGULATION ASSAY 34.5 Seconds Normal 25.0-35.0 [facility] Comment on above: Order Comment: Check anti-Xa level every 6 hours while on heparin infusion, or per protocol. Result Comment: Clin ical significance of the APTT is questionable in the presence of heparin. Performed By: #### L [id number] #### [facility] ([facility]) [address] [place] [address] B-TYPE NATRIURETIC PEPTIDEon 06-29-2024 Natriuretic peptide B (Bld) [Mass/Vol] 222 pg/mL High 0-100 [facility] Comment on above: Performed By: #### L [id number] ####[facility] ([facility])[address] [place] [address] CBC WITH AUTO DIFFERENTIALon 06-29-2024 Basophils (Bld) [#/Vol] 0.05 10*3/uL Normal 0.00-0.20 [facility] Comment on above: Performed By: #### L [id number] ####[facility] ([facility])[address] [place] [address] Basophils/100 WBC (Bld) 0.6 % Normal 0.0-1.0 [facility] Comment on above: Performed By: #### L [id number] ####[facility] ([facility])[address] [place] [address] Eosinophils (Bld) [#/Vol] 0.18 10*3/uL Normal 0.00-0.50 [facility] Comment on above: Performed By: #### L [id number] ####[facility] ([facility])[address] [place] [address] Eosinophils/100 WBC (Bld) 2.1 % Normal 0.0-6.0 [facility] Comment on above: Performed By: #### L [id number] ####[facility] ([facility])[address] [place] [address] Erythrocyte distribution width (RBC) [Ratio] 14.9 % Normal 11.5-15.0 [facility] Comment on above: Performed By: #### L [id number] ####[facility] ([facility])[address] [place] [address] ERYTHROCYTE MEAN CORPUSCULAR HEMOGLOBIN CONCENTRATION (G/DL) BY AUTOMATED 32.9 g/dL Normal 32.0-35.0 [facility] Comment on above: Performed By: #### L [id number] ####[facility] ([facility])[address] [place] [address] Hematocrit (Bld) [Volume fraction] 35.9 % Low 36.0-48.0 [facility] Comment on above: Performed By: #### L [id number] ####[facility] ([facility])[address] [place], [place] [address] Hemoglobin (Bld) [Mass/Vol] 11.8 g/dL Low 12.0-15.0 [facility] Comment on above: Performed By: #### L [id number] ####[facility] ([facility])[address] [place] [address] Immature granulocytes (Bld) [#/Vol] 0.03 10*3/uL Normal 0.00-0.20 [facility] Comment on above: Performed By: #### L [id number] ####[facility] ([facility])[address] [place] [address] Immature granulocytes/100 WBC (Bld) 0.3 % Normal 0.0-1.0 [facility] Comment on above: Performed By: #### L [id number] ####[facility] ([facility])[address] [place] [address] Lymphocytes (Bld) [#/Vol] 2.02 10*3/uL Normal 1.20-4.00 [facility] Comment on above: Performed By: #### L [id number] ####[facility] ([facility])[address] [place] [address] Lymphocytes/100 WBC (Bld) 23.5 % Normal 20.0-45.0 [facility] Comment on above: Performed By: #### L [id number] ####[facility] ([facility])[address] [place] [address] MCH (RBC) [Entitic mass] 27.2 pg Normal 27.0-33.0 [facility] Comment on above: Performed By: #### L [id number] ####[facility] ([facility])[address] [place] [address] MCV (RBC) [Entitic vol] 82.7 fL Normal 82.0-98.0 [facility] Comment on above: Performed By: #### L [id number] ####[facility] ([facility] [place] [address] Monocytes (Bld) [#/Vol] 0.56 10*3/uL Normal 0.10-1.00 [facility] Comment on above: Performed By: #### L [id number] ####[facility] ([facility] [place] [address] Monocytes/100 WBC (Bld) 6.5 % Normal 5.0-12.0 [facility] Comment on above: Performed By: #### L [id number] ####[facility] ([facility] [place] [address] Neutrophils (Bld) [#/Vol] 5.74 10*3/uL Normal 1.60-7.60 [facility] Comment on above: Performed By: #### L [id number] ####[facility] ([facility] [place] [address] Neutrophils/100 WBC (Bld) 67.0 % Normal 40.0-72.0 [facility] Comment on above: Performed By: #### L [id number] ####[facility] ([facility])[address] [place] [address] NRBC (PER 100 WBCS) BY AUTOMATED COUNT 0.0 % Normal 0 [facility] Comment on above: Performed By: #### L [id number] ####[facility] ([facility])[address] [place] [address] PLATELETS (10*3/UL) IN BLOOD AUTOMATED COUNT 233 10*3/uL Normal 150-400 [facility] Comment on above: Performed By: #### L [id number] ####[facility] ([facility])[address] [place] [address] RBC (Bld) [#/Vol] 4.34 10*6/uL Normal 3.80-5.00 [facility] Comment on above: Performed By: #### L [id number] ####[facility] ([facility])[address] [place] [address] WBC (Bld) [#/Vol] 8.58 10*3/uL Normal 4.00-10.60 [facility] Comment on above: Performed By: #### L [id number] ####[facility] ([facility])[address] [place] [address] COMPREHENSIVE METABOLIC PANE Alec 06-29-2024 Albumin [Mass/Vol] 3.8 g/dL Normal 3.5-5.7 [facility] Comment on above: Performed By: #### L [id number] ####[facility] ([facility])[address] [place] [address] ALP [Catalytic activity/Vol] 64 U/L Normal 34-104 [facility] Comment on above: Performed By: #### L [id number] ####[facility] ([facility])[address] [place] [address] ALT [Catalytic activity/Vol] 35 U/L Normal 7-52 [facility] Comment on above: Performed By: #### L [id number] ####[facility] ([facility])[address] [place] [address] Anion gap [Moles/Vol] 12 mmol/L Normal 7-20 [facility] Comment on above: Performed By: #### L [id number] ####[facility] ([facility])[address] [place] [address] AST [Catalytic activity/Vol] 21 U/L Normal 13-39 [facility] Comment on above: Performed By: #### L [id number] ####[facility] ([facility])[address] [place] [address] Bilirubin [Mass/Vol] 0.4 mg/dL Normal 0.3-1.0 [facility] Comment on above: Performed By: #### L [id number] ####[facility] ([facility])[address] [place] [address] Calcium [Mass/Vol] 8.5 mg/dL Low 8.6-10.3 [facility] Comment on above: Performed By: #### L [id number] ####[facility] ([facility] [place] [address] Chloride [Moles/Vol] 112 mmol/L High 98-107 [facility] Comment on above: Performed By: #### L [id number] ####[facility] ([facility])[address] [place] [address] CO2 [Moles/Vol] 22 mmol/L Normal 21-31 [facility] Comment on above: Performed By: #### L [id number] ####[facility] ([facility] [place] [address] Creatinine [Mass/Vol] 0.92 mg/dL Normal 0.60-1.20 [facility] Comment on above: Performed By: #### L [id number] ####[facility] ([facility] [place] [address] GLOMERULAR FILTRATION RATE ML/MIN/1.73 SQ M.PREDICTED 71.3 mL/min/1.73m*2 Normal >60.0 [facility] Comment on above: Result Comment: [facility]???s estimated glomerular filtration rate (eGFR) [...] #### L [id number] ####[facility] ([facility])[address] [place] [address] Glucose [Mass/Vol] 108 mg/dL High 70-100 [facility] Comment on above: Performed By: #### L [id number] ####[facility] ([facility])[address] [place] [address] Potassium [Moles/Vol] 3.7 mmol/L Normal 3.5-5.1 [facility] Comment on above: Performed By: #### L [id number] ####[facility] ([facility])[address] [place] [address] Protein [Mass/Vol] 6.1 g/dL Normal 6.0-8.3 [facility] Comment on above: Performed By: #### L [id number] ####[facility] ([facility])[address] [place] [address] Sodium [Moles/Vol] 142 mmol/L Normal 136-145 [facility] Comment on above: Performed By: #### L [id number] ####[facility] ([facility])[address] [place] [address] Urea nitrogen [Mass/Vol] 11 mg/dL Normal 7-25 [facility] Comment on above: Performed By: #### L [id number] ####[facility] ([facility])[address] [place] [address] UREA NITROGEN/CREATININE (MASS RATIO) IN SER/PLAS 12.0 Normal [facility] Comment on above: Performed By: #### L [id number] ####[facility] ([facility])[address] [place] [address] MAGNESIUMon 06-29-2024 Magnesium [Mass/Vol] 1.7 mg/dL Low 1.9-2.7 [facility] Comment on above: Performed By: #### L [id number] ####[facility] ([facility])[address] [place] [address] PHOSPHORUSon 06-29-2024 Magnesium [Mass/Vol] 2.9 mg/dL Normal 2.5-5.0 [facility] Comment on above: Performed By: #### L [id number] ####[facility] ([facility])[address] [place] [address] PROTIME-INRon 06-29-2024 INR IN PPP BY COAGULATION ASSAY 0.99 Normal 0.90-1.10 [facility] Comment on above: Result [...] 1995;108:231S-246S. Performed By: #### L [id number] #### [facility] ([facility]) [address] [place] [address] PROTHROMBIN TIME (PT) IN PPP BY COAGULATION ASSAY 13.1 Seconds Normal 12.3-14.8 [facility] Comment on above: Performed By: #### L [id number] #### [facility] ([facility]) [address] [place] [address] TROPONIN Ion 06-29-2024 Troponin I.cardiac [Mass/Vol] 0.10 ng/mL High 0.00-0.04 [facility] Comment on above: Performed By: #### L [id number] ####[facility] ([facility])[address] [place] [address] Office Visiton 06-21-2024 Follow-up visit [id number] Aby Madrigal 1965 Date Provider Department Center 06/21/2024 GOMEZ KNEDALL RIAZ [facility] Family History Problem Relation Age of Onset Lung cancer Mother No Known Problems Father Lung cancer Sister Family Status - Relation Status Age at Mother Father Sister Level of Service:09424 UT OFFICE/OUTPATIENT ESTABLISHED MOD MDM 30 MIN Normal [facility] Office Visiton 05-26-2024 Follow-up visit [id number] Aby Madrigal S 1965 Provider Department Center 05/26/2024 [id number] VAZQUEZ CARD [facility] Family History Problem Relation Age of Onset Lung cancer Mother No Known Problems Father Lung cancer Sister Family Status - Relation Status Age at Mother Father Sister Level of Service:36503 UT OFFICE/OUTPATIENT NEW MODERATE MDM 45 MINUTES Normal [facility] Outside Colonoscopyon 2022 Outside Colonoscopy [id number] 0CD:127 [facility] Reminderson 11-27-2022 Reminders - From: Na Hayes LPN To: N - Clinical; Sent: 11/27/2022 12:46:10 EST Show up: 10/25/2032 07:00:00 EST Subject: colonoscopy recall Due Date/Time: 11/25/2032 07:00:00 EST Reminder/Recall Patient is due for screening colonoscopy 11/25/2032. Normal [facility] Lab Reportson 11-24-2022 Lab Reports [id number] 0CD:127 [facility] Covid-19 PCR (CVDTB)on 10-24 SARS-CoV-2 (COVID-19) RNA BECK+probe Ql (Unsp spec) Not detected Normal NOT DETECTED [facility] Comment on above: Result Comment: This test is not yet approved or cleared by the [place] FDA. When there are no FDA-approved or cleared tests available, and other criteria are met, FDA can make tests available under an emergency access mechanism called an Emergency Use Authorization (EUA). The EUA for this test is supported by the [place] of Health and Human Service's (HHS's) declaration [...] SARS-CoV-2. Performed By: #### C [facility] #### [facility] [address] [place] [address] Dr. Rich Cutler Consent for Procedure/Surger yon 10-07-2022 Consent for Procedure/Surgery [id number] 0CD:127 Normal [facility] Ambulatory Visit Summaryon 1 12-06-2021 Ambulatory [...] conjunctivitis Anticoagulated Kidney stones Normal [facility] VC VENOUS REFLUX NINO LMTon 1 12-02-2021 VC VENOUS REFLUX NINO LMT Patient: ABY MADRIGAL Exam Date: 10/02/2022 : 1965 Gender:F Ordering : DR KENDRA MORAN . 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 Tech Note: Incompetent SFJ and GSV. Patent varicose vein mid/med calf 2.9mm with 0s reflux. Patent varicose vein prox/post calf 3.8mm with 0s reflux. Patent varicose vein dist/med thigh 3.8mm with 2.0s reflux. CONCLUSION: 1. Mild right and egkj-ic-csbgudhv left great saphenous vein venous insufficiency with dilatation 2. Left saphenous popliteal junction reflux 3. Mild left anterior accessory saphenous vein venous insufficiency without dilatation 4. Small bilateral incompetent varicose veins Dictated by: Adelia Lezama MD on 10/02/2022 at 13:36 Approved by: Adelia Lezama MD on 10/02/2022 at 13:52 Normal [facility] ECHOCARDIO M/2D COMPLETEon 1 11-30-2021 ECHOCARDIO M/2D COMPLETE Patient: ABY MADRIGAL Exam Date: 09/30/2022 : 1965 Gender:F Ordering : DR KENDRA MORAN . Admission #: [id number] Family : Order #: [id number] CLICK HERE TO VIEW EXAM ECHOCARDIOGRAM REPORT [...] M.D. on 09/30/2022 at 18:37 Normal [facility] BNPon 09-24-2022 Natriuretic peptide B (Bld) [Mass/Vol] 501.0 pg/mL Normal <=900.0 [facility] Comment on above: Performed By: #### C [facility] #### [facility] [address] [place] [address] Dr. Rich Cutler CBC AUTO DIFFon 09-24-2022 BASO # 0.1 103/ul Normal 0.0-0.1 [facility] Comment on above: Performed By: #### C VDTBH #### [facility] [address] [place] [address] Dr. Rich Cutler Basophils/100 WBC (Bld) 0.8 % Normal 0.2-2.0 [facility] Comment on above: Performed By: #### C VDTBH #### [facility] [address] [place] [address] Dr. Rich Cutler EO # 0.3 103/ul Normal 0.0-0.7 [facility] Comment on above: Performed By: #### C VDTBH #### [facility] [address] [place] [address] Dr. Rich Cutler Eosinophils/100 WBC (Bld) 3.4 % Normal 0.9-7.0 [facility] Comment on above: Performed By: #### C VDTBH #### [facility] [address] [place] [address] Dr. Rich Cutler Erythrocyte distribution width (RBC) [Ratio] 13.3 % Normal 11.0-15.0 [facility] Comment on above: Performed By: #### C VDTBH #### [facility] [address] [place] [address] Dr. Rich Cutler Hematocrit (Bld) [Volume fraction] 40.5 % Normal 36.0-48.0 [facility] Comment on above: Performed By: #### C VDTBH #### [facility] [address] [place] [address] Dr. Rich Cutler Hemoglobin (Bld) [Mass/Vol] 13.1 g/dL Normal 12.0-16.0 [facility] Comment on above: Performed By: #### C VDTBH #### [facility] [address] [place] [address] Dr. Rich Cutler IG # 0.02 10e3/ul Normal 0.00-0.03 [facility] Comment on above: Performed By: #### C VDTBH #### [facility] [address] [place] [address] Dr. Rich Cutler IG % 0.3 % Normal 0.0-0.5 [facility] Comment on above: Performed By: #### C VDTBH #### [facility] [address] [place] [address] Dr. Rich Cutler LYMPH # 2.7 103/ul Normal 1.2-3.8 [facility] Comment on above: Performed By: #### C VDTBH #### [facility] [address] [place] [address] Dr. Rich Cutler Lymphocytes/100 WBC (Bld) 35.4 % Normal 20.5-60.0 [facility] Comment on above: Performed By: #### C VDTBH #### [facility] [address] [place] [address] Dr. Rich Cutler MANUAL DIFF REQ NO Normal [facility] Comment on above: Performed By: #### C VDTBH #### [facility] [address] [place] [address] Dr. Rich Cutler MCH (RBC) [Entitic mass] 28.2 pg Normal 26.7-34.0 [facility] Comment on above: Performed By: #### C VDTBH #### [facility] [address] [place] [address] Dr. Rich Cutler MCHC (RBC) [Mass/Vol] 32.3 g/dL Normal 29.9-35.2 [facility] Comment on above: Performed By: #### C VDTBH #### [facility] [address] [place] [address] Dr. Rich Cutler MCV (RBC) [Entitic vol] 87.3 fL Normal 81.0-99.0 [facility] Comment on above: Performed By: #### C VDTBH #### [facility] [address] [place] [address] Dr. Rich Cutler MONO # 0.5 103/ul Normal 0.3-0.8 [facility] Comment on above: Performed By: #### C VDTBH #### [facility] [address] [place] [address] Dr. Rich Cutler Monocytes/100 WBC (Bld) 6.5 % Normal 1.7-12.0 [facility] Comment on above: Performed By: #### C VDT[facility] #### [facility] [address] [place] [address] Dr. Rich Cutler NEUT # 4.1 103/ul Normal 1.4-6.5 [facility] Comment on above: Performed By: #### C VDT[facility] #### [facility] [address] [place] [address] Dr. Rich Cutler Neutrophils/100 WBC (Bld) 53.6 % Normal 43.0-75.0 [facility] Comment on above: Performed By: #### C VDT[facility] #### [facility] [address] [place] [address] Dr. Rich Cutler Platelet mean volume (Bld) [Entitic vol] 10.3 fL Normal 9.5-13.5 [facility] Comment on above: Performed By: #### C VDT[facility] #### [facility] [address] [place] [address] Dr. Rich Cutler PLT 283 103/ul Normal 150-450 [facility] Comment on above: Performed By: #### C VDT[facility] #### [facility] [address] [place] [address] Dr. Rich Cutler RBC 4.64 106/ul Normal 4.20-5.40 [facility] Comment on above: Performed By: #### C VDT[facility] #### [facility] [address] [place] [address] Dr. Rich Cutler WBC 7.6 103/ul Normal 4.0-11.0 [facility] Comment on above: Performed By: #### C VDT[facility] #### [facility] [address] [place] [address] Dr. Rich Cutler INSULINon 09-24-2022 Insulin 15.1 uIU/mL Normal 2.6-24.9 [facility] Comment on above: Performed By: #### C VDT[facility] #### [facility] [address] [place] [address] Dr. Rich Cutler PROF 14(COMP METB)on 022 Albumin [Mass/Vol] 3.5 g/dL Normal 3.4-5.0 [facility] [facility] Comment on above: Performed By: #### C VDTBH #### [facility] [address] [place] [address] Dr. Rich Cutler Albumin/Globulin [Mass ratio] 1.0 {ratio} Normal [facility] Comment on above: Performed By: #### C VDTBH #### [facility] [address] [place] [address] Dr. Rich Cutler ALP [Catalytic activity/Vol] 91 U/L Normal 46-116 [facility] Comment on above: Performed By: #### C VDTBH #### [facility] [address] [place] [address] Dr. Rich Cutler ALT [Catalytic activity/Vol] 47 U/L Normal 14-59 [facility] Comment on above: Performed By: #### C VDTBH #### [facility] [address] [place] [address] Dr. Rich Cutler Anion gap [Moles/Vol] 11.7 mmol/L Normal [facility] Comment on above: Performed By: #### C VDTBH #### [facility] [address] [place] [address] Dr. Rich Cutler AST [Catalytic activity/Vol] 24 U/L Normal 15-37 [facility] Comment on above: Performed By: #### C VDTBH #### [facility] [address] [place] [address] Dr. Rich Cutler Bilirubin [Mass/Vol] 0.2 mg/dL Normal 0.2-1.0 [facility] Comment on above: Performed By: #### C VDTBH #### [facility] [address] [place] [address] Dr. Rich Cutler Calcium [Mass/Vol] 8.9 mg/dL Normal 8.5-10.1 [facility] Comment on above: Performed By: #### C VDTBH #### [facility] [address] [address] [address] Rich Cutler Chloride [Moles/Vol] 105 mmol/L Normal 98-107 [facility] Comment on above: Performed By: #### C VDTBH #### [facility] [address] [place] [address] Dr. Rich Cutler CO2 [Moles/Vol] 28.1 mmol/L Normal 21.0-32.0 [facility] Comment on above: Performed By: #### C VDTBH #### [facility] [address] [place] [address] Dr. Rich Cutler Creatinine [Mass/Vol] 1.13 mg/dL Critically high 0.55-1.02 [facility] Comment on above: Performed By: #### C VDTBH #### [facility] [address] [place] [address] Dr. Rich Cutler EGFR-AF BARBADIAN 60 mL/min/1.73m2 Normal >=60 [facility] Comment on above: Performed By: #### C VDTBH #### [facility] [address] [place] [address] Dr. Rich Cutler EGFR-NON AF BARBADIAN 49 mL/min/1.73m2 Critically low >=60 [facility] Comment on above: Performed By: #### C VDTBH #### [facility] [address] [place] [address] Dr. Rich Cutler Globulin (S) [Mass/Vol] 3.5 g/dL Normal [facility] Comment on above: Performed By: #### C VDTBH #### [facility] [address] [place] [address] Dr. Rich Cutler Glucose [Mass/Vol] 119 mg/dL Critically high 74-[address] [facility] Comment on above: Performed By: #### C VDTBH #### [facility] [address] [place] [address] Dr. Rich Cutler Potassium [Moles/Vol] 3.8 mmol/L Normal 3.5-5.1 [facility] Comment on above: Performed By: #### C VDTBH #### [facility] [address] [place] [address] Dr. Rich Cutler Protein [Mass/Vol] 7.0 g/dL Normal 6.4-8.2 [facility] Comment on above: Performed By: #### C VDTBH #### [facility] [address] [place] [address] Dr. Rich Cutler Sodium [Moles/Vol] 141 mmol/L Normal 136-145 [facility] Comment on above: Performed By: #### C VDTBH #### [facility] [address] [place] [address] Dr. Rich Cutler Urea nitrogen [Mass/Vol] 16.0 mg/dL Normal 7.0-18.0 [facility] Comment on above: Performed By: #### C VDTBH #### [facility] [address] [place] [address] Dr. Rich Cutler Urea nitrogen/Creatinine [Mass ratio] 14.2 mg/mg Normal [facility] Comment on above: Performed By: #### C VDTBH #### [facility] [address] [place] [address] Dr. Rich Cutler TROPONIN, HIGH SENSITIVITYon 09-24-2022 HSTROP 10.6 pg/mL Normal 4.0-51.3 [facility] Comment on above: Result Comment: CUT- OFF POINTS HAVE BEEN ESTABLISHED BASED ON THE FOURTH UNIVERSAL DEFINITIONS OF MYOCARDIAL INFARCTION. THE UPPER REFERENCE LIMIT (URL) OF TROPONIN, DEFINED THE 99TH PERCENTILE OF cTnI DISTRIBUTION IN A REFERENCE POPULATION, HAS BEEN CONFIRMED THE DECISION THRESHOLD FOR VA DIAGNOSIS. Performed By: #### C VDTBH #### [facility] [address] [place] [address] Dr. Rich Cutler XR CHEST 1 Von [...] [facility] Date: 2022-09-24 04:08 Normal [facility] CBC AUTO DIFFon 09-23-2022 BASO # 0.1 103/ul Normal 0.0-0.1 [facility] Comment on above: Performed By: #### C BC #### [facility] [address] [place] [address] Dr. Rich Cutler Basophils/100 WBC (Bld) 0.8 % Normal 0.2-2.0 [facility] Comment on above: Performed By: #### C BC #### [facility] [address] [place] [address] Dr. Rich Cutler EO # 0.2 103/ul Normal 0.0-0.7 [facility] Comment on above: Performed By: #### C BC #### [facility] [address] [place] [address] Dr. Rich Cutler Eosinophils/100 WBC (Bld) 3.5 % Normal 0.9-7.0 [facility] Comment on above: Performed By: #### C BC #### [facility] [address] [place] [address] Dr. Rich Cutler Erythrocyte distribution width (RBC) [Ratio] 13.4 % Normal 11.0-15.0 [facility] Comment on above: Performed By: #### C BC #### [facility] [address] [place] [address] Dr. Rich Culter Hematocrit (Bld) [Volume fraction] 42.3 % Normal 36.0-48.0 [facility] Comment on above: Performed By: #### C BC #### [facility] [address] [place] [address] Dr. Rich Cutler Hemoglobin (Bld) [Mass/Vol] 13.4 g/dL Normal 12.0-16.0 [facility] Comment on above: Performed By: #### C BC #### [facility] [address] [address] [address] Rich Cutler IG # 0.03 10e3/ul Normal 0.00-0.03 [facility] Comment on above: Performed By: #### C BC #### [facility] [address] [place] [address] Dr. Rich Cutler IG % 0.5 % Normal 0.0-0.5 [facility] Comment on above: Performed By: #### C BC #### [facility] [address] [place] [address] Dr. Rich Cutler LYMPH # 2.9 103/ul Normal 1.2-3.8 [facility] Comment on above: Performed By: #### C BC #### [facility] [address] [place] [address] Dr. Rich Cutler Lymphocytes/100 WBC (Bld) 44.0 % Normal 20.5-60.0 [facility] Comment on above: Performed By: #### C BC #### [facility] [address] [place] [address] Dr. Rich Cutler MANUAL DIFF REQ NO Normal [facility] Comment on above: Performed By: #### C BC #### [facility] [address] [place] [address] Dr. Rich Cutler MCH (RBC) [Entitic mass] 28.4 pg Normal 26.7-34.0 [facility] Comment on above: Performed By: #### C BC #### [facility] [address] [place] [address] Dr. Rich Cutler MCHC (RBC) [Mass/Vol] 31.7 g/dL Normal 29.9-35.2 [facility] Comment on above: Performed By: #### C BC #### [facility] [address] [place] [address] Dr. Rich Cutler MCV (RBC) [Entitic vol] 89.6 fL Normal 81.0-99.0 [facility] Comment on above: Performed By: #### C BC #### [facility] [address] [place] [address] Dr. Rich Cutler MONO # 0.4 103/ul Normal 0.3-0.8 [facility] Comment on above: Performed By: #### C BC #### [facility] [address] [place] [address] Dr. Rich Cutler Monocytes/100 WBC (Bld) 6.6 % Normal 1.7-12.0 [facility] Comment on above: Performed By: #### C BC #### [facility] [address] [place] [address] Dr. Rich Cutler NEUT # 2.9 103/ul Normal 1.4-6.5 [facility] Comment on above: Performed By: #### C BC #### [facility] [address] [place] [address] Dr. Rich Cutler Neutrophils/100 WBC (Bld) 44.6 % Normal 43.0-75.0 [facility] Comment on above: Performed By: #### C BC #### [facility] [address] [place] [address] Dr. Rich Cutler Platelet mean volume (Bld) [Entitic vol] 11.0 fL Normal 9.5-13.5 [facility] Comment on above: Performed By: #### C BC #### [facility] [address] [place] [address] Dr. Rich Cutler PLT 272 103/ul Normal 150-450 [facility] Comment on above: Performed By: #### C BC #### [facility] [address] [place] [address] Dr. Rich Cutler RBC 4.72 106/ul Normal 4.20-5.40 [facility] Comment on above: Performed By: #### C BC #### [facility] [address] [place] [address] Dr. Rich Cutler WBC 6.5 103/ul Normal 4.0-11.0 [facility] Comment on above: Performed By: #### C BC #### [facility] [address] [place] [address] Dr. Rich Cutler FREE THYROXINE INDEX T7on 11 -02-2022 FTI 2.16 Normal 1.30-4.50 [facility] Comment on above: Performed By: #### L IPID, TSH, T7, CMP #### [facility] [address] [address] [address] Rich Cutler T3U 30.0 % Normal 30.0-39.0 [facility] Comment on above: Performed By: #### L IPID, TSH, T7, CMP #### [facility] [address] [address] [address] Rich Cutler T4 [Mass/Vol] 7.20 ug/dL Normal 4.80-13.90 [facility] Comment on above: Performed By: #### L IPID, TSH, T7, CMP #### [facility] [address] [address] [address] Rich Cutler GLYCOHEMOGLOBIN A1Con 2021 ADA RECOMMENDATION SEE BELOW Normal [facility] Comment on above: Result Comment: ADA RECOMMENDED LIMIT 4.0 - 6.0 ADA THERAPEUTIC TARGET < 7.0 ACTION SUGGESTED > 7.0 Performed By: #### A 1C #### [facility] [address] [address] [address] Rich Cutler Glucose [Mass/Vol] 128 mg/dL Normal [facility] Comment on above: Performed By: #### A 1C #### [facility] [address] [address] [address] Rich Cutler HbA1c (Bld) [Mass fraction] 6.1 % Normal 4.5-6.2 [facility] Comment on above: Performed By: #### A 1C #### [facility] [address] [address] [address] Rich Cutler IRONon 09-23-2022 Iron [Mass/Vol] 64.0 ug/dL Normal 50.0-170.0 [facility] Comment on above: Performed By: #### C VDTBH #### [facility] [address] [address] [address] Rich Cutler LIPID PROFILEon 09-23-2022 CHOL-HDL RATIO NORM SEE BELOW Normal [facility] Comment on above: Result Comment: 3.3 - 4.4 LOW RISK 4.4 - 7.1 AVERAGE RISK 7.1 - 11.0 MODERATE RISK >11.0 HIGH RISK Performed By: #### L IPID, TSH, T7, CMP #### [facility] [address] [address] [address] Rich Cutler Cholesterol [Mass/Vol] 237 mg/dL Critically high <=200 [facility] Comment on above: Performed By: #### L IPID, TSH, T7, CMP #### [facility] [address] [address] [address] iRch Cutler Cholesterol in HDL [Mass/Vol] 44 mg/dL Normal 40-60 [facility] Comment on above: Performed By: #### L IPID, TSH, T7, CMP #### [facility] [address] [place] [address] Dr. Rich Cutler Cholesterol in LDL [Mass/Vol] 172.2 mg/dL Normal [facility] Comment on above: Performed By: #### L IPID, TSH, T7, CMP #### [facility] [address] [address] [address] Rich Cutler Cholesterol.total/C holesterol in HDL [Mass ratio] 5.4 {ratio} Normal [facility] Comment on above: Performed By: #### L IPID, TSH, T7, CMP #### [facility] [address] [place] [address] Dr. Rich Cutler HDL NORMAL > or = 60 mg/dl - LO W CARDIOVASCULAR RISK <40 mg/dl - HIGH CARDIOVASCULAR RISK Normal [facility] Comment on above: Performed By: #### L IPID, TSH, T7, CMP #### [facility] [address] [place] [address] Dr. Rich Cutler LDL CALC NORMAL SEE BELOW Normal [facility] Comment on above: Result Comment: <100 mg/dl OPTIMAL 100 - 129 mg/dl NEAR OR ABOVE OPTIMAL 130 - 159 mg/dl BORDERLINE HIGH 160 - 189 mg/dl HIGH >190 mg/dl VERY HIGH Performed By: #### L IPID, TSH, T7, CMP #### [facility] [address] [place] [address] Dr. Rich Cutler Triglyceride [Mass/Vol] 104 mg/dL Normal <=150 [facility] Comment on above: Performed By: #### L IPID, TSH, T7, CMP #### [facility] [address] [place] [address] Dr. Rich Cutler VLDL CALC 20.8 mg/dL Normal [facility] Comment on above: Performed By: #### L IPID, TSH, T7, CMP #### [facility] [address] [place] [address] Dr. Rich Cutler PROF 14(COMP METB)on 022 Albumin [Mass/Vol] 3.5 g/dL Normal 3.4-5.0 [facility] Comment on above: Performed By: #### L IPID, TSH, T7, CMP #### [facility] [address] [place] [address] Dr. Rich Cutler Albumin/Globulin [Mass ratio] 0.9 {ratio} Normal [facility] Comment on above: Performed By: #### L IPID, TSH, T7, CMP #### [facility] [address] [place] [address] Dr. Rich Cutler ALP [Catalytic activity/Vol] 93 U/L Normal 46-116 [facility] Comment on above: Performed By: #### L IPID, TSH, T7, CMP #### [facility] [address] [place] [address] Dr. Rich Cutler ALT [Catalytic activity/Vol] 44 U/L Normal 14-59 [facility] Comment on above: Performed By: #### L IPID, TSH, T7, CMP #### [facility] [address] [place] [address] Dr. Rich Cutler Anion gap [Moles/Vol] 8.5 mmol/L Normal [facility] Comment on above: Performed By: #### L IPID, TSH, T7, CMP #### [facility] [address] [place] [address] Dr. Rich Cutler AST [Catalytic activity/Vol] 26 U/L Normal 15-37 [facility] Comment on above: Performed By: #### L IPID, TSH, T7, CMP #### [facility] [address] [address] [address] Rich Cutler Bilirubin [Mass/Vol] 0.3 mg/dL Normal 0.2-1.0 [facility] Comment on above: Performed By: #### L IPID, TSH, T7, CMP #### [facility] [address] [address] [address] Rich Cutler Calcium [Mass/Vol] 9.0 mg/dL Normal 8.5-10.1 [facility] Comment on above: Performed By: #### L IPID, TSH, T7, CMP #### [facility] [address] [place] [address] Dr. Rich Cutler Chloride [Moles/Vol] 106 mmol/L Normal 98-107 [facility] Comment on above: Performed By: #### L IPID, TSH, T7, CMP #### [facility] [address] [place] [address] Dr. Rich Cutler CO2 [Moles/Vol] 31.0 mmol/L Normal 21.0-32.0 [facility] Comment on above: Performed By: #### L IPID, TSH, T7, CMP #### [facility] [address] [place] [address] Dr. Rich Cutler Creatinine [Mass/Vol] 1.11 mg/dL Critically high 0.55-1.02 [facility] Comment on above: Performed By: #### L IPID, TSH, T7, CMP #### [facility] [address] [place] [address] Dr. Rich Cutler EGFR-AF BARBADIAN >60 Normal >=60 [facility] Comment on above: Performed By: #### L IPID, TSH, T7, CMP #### [facility] [address] [place] [address] Dr. Rich Cutler EGFR-NON AF BARBADIAN 50 mL/min/1.73m2 Critically low >=60 [facility] Comment on above: Performed By: #### L IPID, TSH, T7, CMP #### [facility] [address] [address] [address] Rich Cutler Globulin (S) [Mass/Vol] 3.7 g/dL Normal [facility] Comment on above: Performed By: #### L IPID, TSH, T7, CMP #### [facility] [address] [address] [address] Rich Cutler Glucose [Mass/Vol] 121 mg/dL Critically high 74-[address] [facility] Comment on above: Performed By: #### L IPID, TSH, T7, CMP #### [facility] [address] [address] [address] Rich Cutler Potassium [Moles/Vol] 4.5 mmol/L Normal 3.5-5.1 [facility] Comment on above: Performed By: #### L IPID, TSH, T7, CMP #### [facility] [address] [place] [address] Dr. Rich Cutler Protein [Mass/Vol] 7.2 g/dL Normal 6.4-8.2 [facility] Comment on above: Performed By: #### L IPID, TSH, T7, CMP #### [facility] [address] [place] [address] Dr. Rich Cutler Sodium [Moles/Vol] 141 mmol/L Normal 136-145 [facility] Comment on above: Performed By: #### L IPID, TSH, T7, CMP #### [facility] [address] [address] [address] Rich Cutler Urea nitrogen [Mass/Vol] 16.0 mg/dL Normal 7.0-18.0 [facility] Comment on above: Performed By: #### L IPID, TSH, T7, CMP #### [facility] [address] [place] [address] Dr. Rich Cutler Urea nitrogen/Creatinine [Mass ratio] 14.4 mg/mg Normal [facility] Comment on above: Performed By: #### L IPID, TSH, T7, CMP #### [facility] [address] [address] [address] Rich Cutler TSHon 09-23-2022 TSH 3.915 uIU/mL Critically high 0.358-3.740 [facility] Comment on above: Performed By: #### L IPID, TSH, T7, CMP #### [facility] [address] [address] [address] Rich Cutler Physician Referralon 022 Physician Referral [phone] [id number] Normal [facility] Lipid Panelon 10-07-2021 Cholesterol [Mass/Vol] 205 mg/dL High 140-200 [place] Comment on above: Result Comment: Chol less than 200 mg/dl low risk Chol 201-239 mg/dl borderline risk Chol 240 mg/dl and greater high risk Performed By: #### L IPID, [id number], TSH3 wRFLX #### [facility] [address] [id number] [place] Cholesterol in HDL [Mass/Vol] 25 mg/dL Low 35-85 [place] Comment on above: Result Comment: HDL CHOL ATP-III CLASSIFICATION Cardiovascular Risk HDL > or equal to 60 mg/dL LOW HDL < 40 mg/dL HIGH Performed By: #### L IPID, [id number], TSH3 wRFLX #### [facility] [address] [place] [address] [place] Cholesterol.total/C holesterol in HDL [Mass ratio] 8.2 {ratio} Normal <5.0 [place] Comment on above: Performed By: #### L IPID, [id number], TSH3 wRFLX #### [facility] [address] [place] [address] [place] LDL Cholesterol,Calcula coby 160 mg/dL High 0-100 [place] Comment on above: Result Comment: LDL ATP III CLASSIFICATION LDL less than 100 mg/dL Optimal LDL 100-129 mg/dL Near or above optimal LDL 130-159 mg/dL Borderline high LDL 160-189 mg/dL High LDL greater than 189 mg/dL Very high Performed By: #### L IPID, [id number], TSH3 wRFLX #### [address] Triglyceride w/Reflex 100 mg/dL Normal 35-149 [place] Comment on above: Result Comment: TRIG ATP III CLASSIFICATION TRIG less than 150 mg/dL Normal TRIG 150-199 mg/dL Borderline high TRIG 200-500 mg/dL High TRIG greater than 500 mg/dL Very high Standard traceable to the Center for Disease Conrtrol and Prevention (CDC) test method. Performed By: #### L IPID, [id number], TSH3 wRFLX #### [address] VLDL CHOLESTEROL 20 mg/dL Normal [facility] Comment on above: Performed By: #### L IPID, [id number], TSH3 wRFLX #### [address] Thyroid Stim Hormone w/Rflxo n 10-07-2021 Thyroid Stim Hormone w/Rflx 3.27 u[iU]/mL Normal 0.45-5.33 [place] Comment on above: Performed By: #### L IPID, [id number], TSH3 wRFLX #### [address] Vitamin D 25 Hydroxy Totalon 10-07-2021 Vitamin D 25 Hydroxy Total 26.5 ng/mL Low 30-100 [place] Comment on above: Result Comment: JACKELINE MIN D STATUS 25(OH)VITAMIN D RANGE (ng/mL) Deficient <20 Insufficient 20 to <30 Sufficient 30 to 100 Reference: Lanny MF,Gino NC, Dyan VALENZUELA, et al. Evaluation,treatment, and prevention of vitamin D deficiency; an Endocrine Society clinical practice guideline. JCEM. 2010; 96(7):1911-30. PERFORMED BY: [place] [address] PATHOLOGIST SUPERVISOR WOOL SHEARING SILVESTRE SCHULER M.D. Performed By: #### L IPID, [id number], TSH3 wRFLX #### [address] Vital Signs Date Time Vital Sign Value Performing Clinician Deidre gagnon 03-03-2025 11:02-0400 Body height 160.[address] [facility] 03-03-2025 11:02-0400 Body mass index (BMI) [Ratio] 35.6 kg/m2 [place] 03-03-2025 11:02-0400 Body temperature 97.8 [degF] [facility] 03-03-2025 11:02-0400 Body weight 91.[address] [facility] 03-03-2025 11:02-0400 Diastolic blood pressure 69 mm[Hg] [place] 03-03-2025 11:02-0400 Heart rate 82 /min [facility] 03-03-2025 11:02-0400 Respiratory rate 18 /min [facility] 03-03-2025 11:02-0400 SaO2% (BldA) [Mass fraction] 96 % [place] 03-03-2025 11:02-0400 Systolic blood pressure 108 mm[Hg] [place] 03-02-2025 09:18-0400 Body height 162.6 cm Farzana Ely RACE STEWARD-EXECUTIVE DIRECTOR OF NURSING Work Phone: [facility] 03-02-2025 09:18-0400 Body mass index (BMI) [Ratio] 34.81 kg/m2 Farzana Marisol RACE STEWARD-EXECUTIVE DIRECTOR OF NURSING Work Phone: [facility] 03-02-2025 09:18-0400 Body weight 91.99 kg Farzana Ely RACE STEWARD-EXECUTIVE DIRECTOR OF NURSING Work Phone: [facility] 03-02-2025 09:18-0400 Diastolic blood pressure 68 mm[Hg] Farzana Ely RACE STEWARD-EXECUTIVE DIRECTOR OF NURSING Work Phone: [facility] 03-02-2025 09:18-0400 Systolic blood pressure 118 mm[Hg] Farzana Ely RACE STEWARD-EXECUTIVE DIRECTOR OF NURSING Work Phone: [facility] 10-06-2022 15:36-0500 Blood Pressure Location [facility] [place] 10-06-2022 15:36-0500 Diastolic blood pressure 86 mm[Hg] [facility] [place] 10-06-2022 15:36-0500 Heart rate 72 /min [facility] [place] 10-06-2022 15:36-0500 Respiratory rate 16 /min [facility] [place] 10-06-2022 15:36-0500 Systolic blood pressure 126 mm[Hg] [facility] [place] Encounters Encounter Date Encounter Type Care Provider Facility Start: 04-23-2025 End: 04-23-2025 ambulatory [facility] Start: 04-10-2025 End: 04-10-2025 ambulatory [facility] Start: 03-03-2025 End: 03-03-2025 ambulatory [facility] Work Phone: Start: 03-03-2025 End: 03-03-2025 Patient encounter procedure [facility] [address] Work Phone: Start: 03-02-2025 End: 03-02-[address] [facility] Start: 03-02-2025 End: 03-02-2025 Office outpatient visit 15 minutes Farzana Muro [facility] RACE STEWARD-EXECUTIVE DIRECTOR OF NURSING Work Phone: [facility]ne[facility] Comment on above: Genitourinary syndro me of menopause (Primary Dx); PCB (post coital bleeding) Start: 02-26-2025 End: 02-26-2025 ambulatory [facility] Start: 02-07-2025 End: 02-07-2025 ambulatory [facility] Start: 01-09-2025 End: 01-09-2025 ambulatory [facility] Start: 01-02-2025 End: 01-02-2025 [facility] Start: 10-26-2024 End: 10-26-2024 ambulatory [facility] Start: 10-03-2024 End: 10-03-2024 ambulatory [facility] Start: 09-04-2024 End: 09-04-2024 ambulatory GOMEZ SPENCE [facility] Start: 08-29-2024 End: 08-29-2024 ambulatory [facility] Start: 08-04-2024 End: 08-04-2024 ambulatory [facility] Start: 07-20-2024 ambulatory [facility] Start: 07-20-2024 ambulatory [facility] Start: 07-18-2024 ambulatory [facility] Start: 07-18-2024 End: 07-18-2024 Emergency department patient visit HERMINIA JULIAN [facility] Start: 07-18-2024 End: 07-18-2024 ambulatory [facility] Start: 07-11-2024 Evaluation and manag ement of inpatient [facility] Start: 07-11-2024 [facility]: 07-11-2024 End: 07-12-2024 Evaluation and management of inpatient JOSE BETANCUR [facility] Start: 07-10-2024 End: 07-10-2024 [facility] Start: 06-30-2024 Evaluation and manag ement of inpatient [facility] Start: 06-30-2024 Evaluation and manag ement of inpatient [facility] Start: 06-29-2024 End: 07-01-2024 Evaluation and management of inpatient [facility] Start: 06-21-2024 End: 06-21-2024 [facility] Start: 05-26-2024 End: 05-26-2024 ambulatory [facility] Start: 11-26-2022 Encounter for preprocedural laboratory examination DR UMM LANDON . [facility] Start: 11-25-2022 End: 11-26-2022 ambulatory Umm LANDON Facility:CD:[id number] Start: 11-20-2022 End: 11-21-[address] UMM LANDON . Facility:[facility] Start: 11-20-2022 End: 11-21-2022 Encounter for preprocedural laboratory examination DR UMM LANDON . Facility:[facility] Start: 10-06-2022 End: 10-07-2022 ambulatory Umm LANDON Facility:[facility] Start: 10-06-2022 End: 10-06-2022 Patient encounter procedure Umm LANDON General Surgery [facility] Start: 10-02-2022 End: 10-03-[address] KENDRA MORAN . Facility:[facility] Start: 09-30-2022 End: 10-01-[address] KENDRA MORAN . Facility:[facility] Start: 09-28-2022 Encounter for genera l adult medical examination without abnormal findings DR KENDRA MORAN . [facility] Start: 09-24-2022 End: 09-24-[address] [...] LANDON Catheterization of l eft heart Umm LANDON Cholecystectomy Umm LANDON Cystoscopic insertio n of ureteric stent Umm LANDON Dilation and curetta ge of uterus Umm LANDON Vaginal hysterectomy Umm LANDON Plan of Treatment Date Care Activity Detail Author Start: 03-02-2026 Adult BMI Screening Adult BMI Screening [facility] Start: 03-02-2026 Tobacco Screening Tobacco Screening [facility] Start: 07-23-2025 Influenza vaccination Influenza Vaccine [facility] Start: 06-01-2025 End: 06-01-2025 Patient encounter procedure 06/01/2025 1:00 PM EDT Office Visit [facility] [address] [place] [address] Afsaneh Jacome RACE STEWARD-EXECUTIVE DIRECTOR OF NURSING [address] [place] [address] [facility] Start: 07-23-2024 COVID-19 Vaccine ( season) COVID-19 Vaccine ( season) [facility] Start: 2014 Administration of varicella zoster vaccine Zoster (Shingles) Vaccine (1 of 2) [facility] Start: 1983 DTaP,Tdap and Td Vaccines (1 - Tdap) DTaP,Tdap and Td Vaccines (1 - Tdap) [facility] Start: 1982 Adult BMI Follow Up Plan Adult BMI Follow Up Plan [facility] Start: 1976 Depression Screening Depression Screening [facility] Immunizations Immunization Date Immunization Notes Care Provider Fa cility 11-07-2021 influenza virus vaccine, unspecified formulation Farzana Ely RACE STEWARD-EXECUTIVE DIRECTOR OF NURSING Work Phone: [facility] 04-14-2021 SARS-CoV-2 (COVID-19 ) mRNA BNT-162b2 doris LANDON [facility] [place] 03-11-2021 SARS-CoV-2 (COVID-19 ) mRNA BNT-162b2 doris LANDON [facility] [place] NEGATED: Highlighted row has not occurred!10-07-2021 influenza, injectable, quadrivalent, preservative free [place] Payers Date Payer Category Payer Medicaid [id number] 2022 Medicaid [id number] 5 2019 Private Health Insurance [id number] 2016 Unknown [id number] 1965 Unknown [id number] 2.16.8 [id number] 1964 Unknown [id number] 2.16.8 [id number] 1964 Unknown [id number] 2.16.84 0.1.818068.3.579.2.593 1964 Unknown [id number] 2.16.84 0.1.609114.3.579.2.593 1964 Unknown [id number] 2.16.84 0.1.260007.3.579.2.593 1964 Unknown [id number] 2.16.84 0.1.624543.3.579.2.593 1964 Unknown [id number] 2.16.84 0.1.814519.3.579.2.593 1964 Unknown [id number] 2.16.84 0.1.721688.3.579.2.593 1964 Unknown [id number] 2.16.84 0.1.980658.3.579.2.593 1964 Unknown [id number] 2.16. 840.1.111480.3.579.2.1286 1964 Unknown [id number] 2.16. [id number] 1964 Unknown [id number] 2.16.8 40.1.243501.3.579.2.1286 1964 Unknown [id number] 2.16.8 [id number] 1959 Self-pay [id number] 1959 Unknown [id number] Social History Date Type Detail Facility Start: 10-06-2022 End: 03-02-2025 Tobacco smoking status Ex-smoker (finding) [facility] [place] Tobacco smoking status Never [facility] [place] Start: 01-02-2021 End: 03-02-2025 Sex Assigned At Female [facility] Start: 10-07-2021 History of tobacco use Current smoke r [facility] History of tobacco use Cigarette Smoker [facility] Start: 01-02-2021 End: 03-02-2025 Cigarettes smoked current (pack per day) - Reported [address] [facility] Start: 03-02-2025 Tobacco use and exposure Smokeless tobacco non-user [facility] Start: 03-02-2025 Alcoholic beverage intake Ex-drinker (finding) [facility] Start: 1965 Sex assigned at Not on file P [facility] Start: 06-27-2015 End: 03-03-2025 Sex Female (finding) [facility] Start: 1965 Sex Assigned At Female F [facility] Functional Status Date Assessment Result Facility 10-06-2022 Functional Status N/A [facility] Clinical Notes 10-11-2022 to 04-23-2025 Farzana Ely, DIONNE-EXECUTIVE DIRECTOR OF NURSING - 03/02/2025 8:45 AM EDTPatient Instructions Note Date & Type Note Facility 04-23-2025 Note [facility] Subjective Aby Madrigal is a 59 y.o. year old female patient being seen for a medication adjustment per patient. Patient states she need her blood pressure figured out. Patient states its been running high. Endocrinology gave her spirolactone. Patient states the last time she took spirolactone it bottom out her blood pressure she wants to discuss taking the spirolactone. Patient Active Problem List Diagnosis BV (bacterial vaginosis) GERD (gastroesophageal reflux disease) Essential hypertension Sepsis (CMS/HCC) TIA (transient ischemic attack) QURESHI (dyspnea on exertion) Hyperlipidemia Murmur, heart Anxiety Type 2 diabetes mellitus without complication, without long-term current use of insulin (CMS/HCC) Chest pain Elevated troponin Hypomagnesemia NSTEMI (non-ST elevated myocardial infarction) (CMS/HCC) Hypokalemia Coronary artery disease involving paskenta coronary artery of paskenta heart without angina pectoris Depression, major, severe [...] date: 1976 Quit date: 2021 Years since quittin.4 Smokeless tobacco: Never Vaping Use Vaping status: [...] sleep apnea and prior history of smoking. She has been having uncontrolled hypertension and was [...] and V6. She was then admitted to [facility] on 07/11/2024 with NSTEMI. She underwent cardiac [...] daily and isosorbide mononitrate 60 mg daily. on 01/31/2025 she was evaluated at the [facility] because of chest pain. Workup was negative. She was discharged home. She is also following with endocrinology regarding adrenal adenoma. She underwent bilateral adrenal vein sampling and was seen in follow-up with endocrinology who did not favor adrenalectomy and favored medical therapy. She was given spironolactone. She has not started it yet as she wanted to discuss today with me. Today she reports that she has been doing well without any recurrence of chest pain. She has no significant shortness of breath on exertion. She has mild bilateral lower extremity edema. Her blood pressure is better but still not controlled. Review of Systems Cardiovascular: Palpitations: not a lot . Neurological: Positive for headaches (occasional.). All other systems reviewed and are negative. Objective Visit Vitals BP 152/77 (BP Location: Right arm, Patient Position: Sitting) Pulse 66 Ht 1.6 m (5' 3 ) Wt [...] breath sounds. No wheezing or rales. Chest: (more content not included)... [facility] 04-10-2025 Note REASON FOR VISIT + H PI: Aby Madrigal is a 59 y.o. female with known CAD (PCI of LAD Jun 2024), HTN, TIA, panic attacks, SURESH, GERD, T2DM, and dyslipidemia who is being seen today for follow-up reagrding resistant HTN. Clinical History Summary: - Pertinent Family/Social History: 45+ pack yr smoking hx, quit age 57. Brother and sister with HTN (dx as adults). No known fam hx of early CAD. - dx with HTN age 49, initially controlled with metoprolol - Jun 2019 CT A/P in [place], [place] performed for abd pain, incidentally detected [...] cortisol value (to exlude confounding ACTH effect). - January 2025: pt underwent Adrenal Venous Sampling, patient met criteria for selectivity index and lateralization index 2.09 towards the right. Patient's case was discussed at endocrinology weekly conference. No members including myself were in favor of pursuing surgery. Interval History: Patient has continued to monitor blood pressure home she states her systolic values are usually in the 130s to 140s. She checks 3 times a day. Interestingly she is taking her Imdur twice a day and carvedilol 3 times a day. She takes her hydralazine 50 mg if SBP is greater than 180 she states she does this less than once a week. Patient is scheduled to see cardiology this month. No reports of chest pain, or syncope. REVIEW OF SYSTEMS Review of Systems Past Medical/Surgical History: Past Medical History: Diagnosis Date Abnormal ECG Diabetes mellitus ([facility]) Hyperlipidemia Hypertension Obstructive sleep apnea Panic attacks Stroke ([facility]) Past Surgical History: Procedure Laterality Date CARDIAC CATHETERIZATION CEREBRAL ANGIOGRAM CHOLECYSTECTOMY CORONARY STENT PLACEMENT HYSTERECTOMY TUBAL LIGATION Social History /Family History: Social History Tobacco Use Smoking status: Former Current packs/day: 0.00 Average packs/day: 1 pack/day for 45.0 years (45.0 ttl pk-yrs) Types: Cigarettes Start date: 1976 Quit date: 2021 Years since quittin.3 Smokeless tobacco: Never Substance Use Topics Alcohol [...] cancer Mother Accidental Father Lung cancer Sister Medications Current Outpatient Medications: albuterol (Ventolin HFA) 90 mcg/actuation inhaler, Inhale 2 puffs every 4 (four) hours if needed for wheezing or shortness of breath., Disp: 18 g, Rfl: 5 aspirin 81 mg EC tablet, Take 81 mg by mouth in the morning., Disp: , Rfl: clopidogrel (Plavix) 75 mg tablet, Take 1 tablet (75 mg) by mouth in the morning., Disp: 90 tablet, Rfl: 3 hydrALAZINE (Apresoline) 50 mg tablet, Take 50 mg by mouth if needed., Disp: , Rfl: Invokana 100 mg, Take 100 mg by mouth in the morning., Disp: , Rfl: LORazepam (Ativan) 0.5 mg tablet, Take 1 mg by mouth if needed for anxiety., Disp: , Rfl: LORazepam (Ativan) 1 mg tablet, TAKE 1 TABLET BY MOUTH THREE TIMES A DAY FOR 30 DAYS, Disp: , Rfl: metFORMIN (Glucophage) 500 mg tablet, Take 500 mg by mouth with breakfast and with evening meal., Disp: , Rfl: Protonix 40 mg EC tablet, [place] (more content not included)... [facility] 03-02-2025 History of Present illness Narrative Aby [...] Anxiety GERD (gastroesophageal reflux disease) Heart attack ([facility]) 06/29/2024 Hypertension MEDS Current Outpatient Medications [...] Ramos 03/02/25 1132 documented in this encounter [facility] 03-02-2025 Instructions ELVIN Ramos - 03/02/2025 [...] clitoris, and labia. documented in this encounter [facility] 02-26-2025 Note [facility] Subjective Aby Madrigal is [...] infarction) (CMS/HCC) Hypokalemia Coronary artery disease involving paskenta coronary artery of paskenta heart without angina pectoris Depression, major, severe [...] and V6. She was then admitted to [facility] on 07/11/2024 with NSTEMI. She underwent cardiac [...] on 01/31/2025 she was evaluated at the [facility] because of chest pain. Workup was negative. [...] Normal heart so (more content not included)... [facility] 02-07-2025 Note IR VENOGRAPHY VENOUS [...] was achieved using a micropuncture set. A [employer]est[employer]comson wire was advanced into the IVC and a 5 Kazakh vascular sheath was placed. Selective catheterization of [...] MD on 02/07/2025 10:05 PM [facility] 01-18-2025 Note Patient contacted of fice, states she called [facility]ventional [facility]iology to schedule the referral Dr. Christie had sent over, however no referral was received. Textile Screen Maker faxed referral and recent visit note to [phone]. [facility] 01-09-2025 Note REASON FOR VISIT [...] metoprolol - Jun 2019 CT A/P in [place], [place] performed for abd pain, incidentally detected [...] Obstructive sleep apnea Panic attacks Stroke ([facility]/HCC) Past Surgical History: Procedure Laterality Date [...] (Imdur) 60 mg (more content not included)... [facility] 12-25-2024 Note Textile Screen Maker spoke with Remington greene at [facility] regarding this patient. Tram said the way the order was placed through the system they just didn't see it, Tram assured scientific writer that patient was being scheduled at the secondary infusion location. Any questions or concerns call Tram at [phone]. JLR [facility] 10-26-2024 Note Attestation signed by Richa Viramontes MD at 10/27/2024 12:07 PM I have seen and examined the patient. I reviewed the resident/fellow note and I agree with the findings and plan. Richa Viramontes MD Interventional Pulmonary Medicine Pulmonary and Critical Care Medicine [facility] Visit Note Patient: Aby Madrigal Age: 59 y.o. : 1965 Account No.: [id number] Chief complaint: RML nodule HPI Aby Madrigal is a 59 y.o. female with hypertension, CAD status post PCI recently in June 2024, cigarette smoking who is presenting to clinic via telemedicine as a new patient after being referred by Dr. Jarocho Saldaña. Patient reports recent admission to [facility] for hypertensive emergency. This prompted a CT of the chest which was positive for right middle lobe nodule. She then underwent PCI here at [facility] in June. She is currently on [...] PFTs on file. CTA chest 04/21/2024 at [facility]: Right middle lobe approximately 1.2 cm solid nodule appreciated Subsequent PET CT 2024 at [facility]: Right middle lobe nodule is faintly [...] pretest probability of (more content not included)... [facility] 10-03-2024 Note REASON FOR VISIT [...] metoprolol - CT A/P Jun 2019 in [place], [place] performed for abd pain, incidentally detected [...] Diagnosis Date Abnormal ECG Diabetes mellitus ([facility]) Hyperlipidemia Hypertension Obstructive sleep apnea Panic attacks Stroke ([facility]) Past Surgical History: Procedure Laterality Date [...] 25 mg by (more content not included)... [facility] 09-04-2024 Note [facility] Subjective Aby Madrigal is a 59 y.o. year old female patient being seen for follow up [facility] in Jun 2024 for hypotension. She says [...] infarction) (CMS/HCC) Hypokalemia Coronary artery disease involving paskenta coronary artery of paskenta heart without angina pectoris Depression, major, severe [...] and V6. She was then admitted to [facility] on 07/11/2024 with NSTEMI. She underwent cardiac [...] and Affect: M (more content not included)... [facility] 07-20-2024 Note Attestation signed by [...] Age: 59 y.o. : 1965 Account No.: [id number] Referring physician: Dr. Jarocho Saldaña Chief complaint: RML nodule HPI Aby Madrigal is a 59 y.o. female with hypertension, CAD status post PCI recently in June 2024,, cigarette smoking who is presenting to clinic via telemedicine as a new patient after being referred by Dr. Jarocho Saldaña. Patient reports recent admission to [place] ICU for hypertensive emergency. This prompted a CT of the chest which was positive for right middle lobe nodule. She then underwent PCI here at [facility] in June. She is currently on [...] PFTs on file. CTA chest 04/21/2024 at [facility]: Right middle lobe approximately 1 cm spiculated nodule appreciated [facility]: Right middle lobe nodule is faintly PET [...] alcohol. She reports (more content not included)... [facility] 07-18-2024 Note REASON FOR VISIT [...] metoprolol - CT A/P Jun 2019 in [place], [place] performed for abd pain, incidentally detected [...] Diagnosis Date Abnormal ECG Diabetes mellitus ([facility]) Hyperlipidemia Hypertension Obstructive sleep apnea Panic attacks Stroke ([facility]) Past Surgical History: Procedure Laterality Date [...] Rfl: carvedilol (C (more content not included)... [facility] 07-18-2024 Note 07/18/24 1001 Referral Data Referral Source social contact worker Referral Reason Information Patient Information Primary Caregiver Self Activities of Daily Living Assistive Device Not applicable Living Arrangement (Current/Prior to Hospitalization) Private residence Behavior Oriented Discharge Planning Support Systems Children;Family members Type of Residence Private residence Patient's goal for discharge home Patient recently discharged from [facility] to home. Resides at home alone. Discharge plan is home. [facility] 07-18-2024 Note Patient sent to ED f or hypotension and dizziness/lightheadedness [facility] 07-12-2024 Note Hospital Medicine Discharge Summary Final Discharge Diagnosis: NSTEMI Admission Diagnosis: Hypokalemia [E87.6] NSTEMI (non-ST elevated myocardial infarction) ([facility]) [I21.4] Hypertensive urgency [I16.0] Adenoma of left adrenal gland [D35.02] Resistant hypertension [I1A.0] Atherosclerosis of paskenta coronary artery of paskenta heart without angina pectoris [I25.10] Coronary artery disease involving paskenta coronary artery of paskenta heart with unstable angina pectoris ([facility]) [I25.110] Type 2 diabetes mellitus without complication, without long-term current use of insulin ([facility]) [E11.9] Hospital course: 59yoF with CAD s/p LAD SARKIS 11 days ago who was admitted to [facility] on 07/11 for chest pain. patient initially presented to [facility] for uncomfortable feeling in her chest and was found to have elevated troponins and new ischemic changes on EKG. Infusion and cardiology was consulted transferred to [facility] for further evaluation. Initially the patient had blood pressures up to 192/65 for which home medications were restarted. Troponins at [facility] were negative and there were no EKG changes concerning for ischemia. Echo was performed which showed EF 70 to 75%. she was cleared from cardiology for discharge and had resolved. Surgical, Invasive or Diagnostic Procedures Done During Admission: None Consultations During Admission: Cardiology Dear Dr. Lidia MD, [facility] is advised to follow up with you [...] PM Richa Viramontes MD [facility] 09/05/2024 1:00 PM Bijan Mitchell MD [facility] Your medication list START [...] Medications These medications were sent to [facility]/pharmacy #[id number] [facility] [address] [facility] [address] [facility] [id number] isosorbide mononitrate ER 60 mg 24 hr [...] activity In process (more content not included)... [facility] 07-11-2024 Note 07/11/24 1817 Financial [...] How often do you attend denominational or church services? Never Do you belong [...] has the electric, gas, oil, or water [employer] threatened to shut off services in your home? 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 Source social contact worker Referral Reason Psychosocial assessment Patient Information Primary Caregiver Self Accompanied by/Relationship Daughter (Rosita); Mwrmvdvr-[id number] (Yesy) Activities of Daily Living Assistive Device Not applicable Living Arrangement (Current/Prior to Hospitalization) Private residence (Lives at home by herself) Ambulation Independent Dressing Independent Feeding Independent Behavior Oriented (A&Ox4) Communication Can write;Talks;Understands speaking;Understands Martiniquais;Reads Income Information Income Source Unemployed (receives survivor benefits) Discharge Planning Support Systems Children;Family members (daughter, [id number]-hgv, son) Type of Residence Private residence Will patient need Precert for Post Acute needs? No Patient's goal for discharge Home Does the patient need discharge transport arranged? No Completed social work assessment and SDoH screening. Patient was A&Ox4 at this time. Patient's daughter, Rosita, and patient's unustwqh-sj-knf, Yesy, were currently present at bedside. Patient reported that she lives at home by herself and she identified her support system as her daughter, Rosita, her shvsxeqp-yp-uvq, Yesy, and her son, Elie. Patient endorsed [...] any alcohol consumption or recreational drug use. [facility] 07-11-2024 Note Hospital Medicine History and Physical 07/11/2024 12:19 PM THE HOSPITALIST TEAM PREFERS TO USE [employer] CHAT FOR COMMUNICATION 7AM-7PM. IF I DO NOT RESPOND WITHIN 15 MINUTES, PLEASE PAGE ME/CALL THROUGH THE VISUAL AND STOCK ASSOCIATE. FROM 7PM-7AM, PLEASE PAGE [phone](COVR) Chief Complaint Chief Complaint Patient presents with [...] s/p stent placement 11 days ago at [facility] presented to ER as a transfer from [facility] for NSTEMI. Patient states that last [...] Noted Hypokalemia 07/11/2024 Coronary artery disease involving paskenta coronary artery of paskenta heart with unstable angina pectoris ([facility]) 07/11/2024 Anxiety 06/30/2024 Type 2 diabetes mellitus without complication, without long-term current use of insulin ([facility]) 06/30/2024 Chest pain 06/30/2024 Elevated troponin 06/30/2024 Hypertensive urgency 06/30/2024 Hypomagnesemia 06/30/2024 QURESHI (dyspnea on exertion) 05/26/2024 Atherosclerosis of [place] coronary artery of [place] heart without angina pectoris 05/26/2024 Hyperlipidemia 05/26/2024 Murmur, heart 05/26/2024 Sepsis ([facility]) 07/14/2019 BV (bacterial vaginosis) 10/18/2017 GERD (gastroesophageal reflux disease) 10/18/2017 Essential hypertension 10/18/2017 TIA (transient ischemic attack) 10/18/2017 NSTEMI (non-ST elevated myocardial infarction) ([facility]) 06/29/2024 Assessment and Plan NSTEMI CAD, [...] for GI prophylaxis (more content not included)... [facility] 07-10-2024 Note [place] [facility] Note Reason for cardiology [...] Take 1 tablet (more content not included)... [facility] 07-01-2024 Note Hospital Medicine Discharge [...] hypertension, IBS presents a direct mission from [facility] with a chief complaint of chest [...] seen on her EKG. She went to [facility] for the symptoms. Labs were completed [...] on a heparin drip and transferred to [facility] for likely cardiac cath. # [...] - Continue metformin. Dear Dr. Lidia MD, [facility] is advised to follow up with you within 1-2 weeks. Items to follow up in ambulatory setting: None Follow-up with: Cardiology and Nephrology Scheduled appointments: Future Appointments Date Time Provider Department Center 07/10/2024 2:20 PM Bijan Mitchell MD [facility] Your medication list START taking these [...] Medications These medications were sent to [facility]/pharmacy #[id number] [place], [place] [address] [place] [id number] carvedilol 25 mg tablet cloNIDine 0.1 mg [...] Lab Units 06/29/ (more content not included)... [facility] 07-01-2024 Note [facility] CARDIOLOGY INPAT IENT PROGRESS NOTE Reason for follow up: NSTEMI Subjective Aby Madrigal, a 59 y.o. female patient, is transferred from [facility] for continuity of care. Patient reports that 3 days ago, she woke up in the mid of the night with indigestion, and a feeling fullness, but no pressure like chest pain. She presented to [facility], where she was found to [...] -- 100 % -- 06/30/24 1543 (!) 224/ -- -- 71 16 100 % -- [...] 0.56 06/29/2024 E (more content not included)... [facility] 06-30-2024 Note Patient: Aby antony Procedure Information Date/Time: 06/30/24 1600 Procedure: Coronary angiography (Bilateral) Location: [facility] SPIRITUAL ADVISOR 3 / [facility] VASCULAR LAB (Cath) Providers: Brunilda [...] Plan discussed with attending. Additional Equipment Requests [facility] 06-30-2024 Note 06/30/24 1446 Referral Data Referral Source social contact worker Referral Reason Follow up;Information Patient Information Primary Caregiver Self Accompanied by/Relationship daughters at bedside Activities of Daily Living Assistive Device Not applicable Living Arrangement (Current/Prior to Hospitalization) Private residence (three to four stairs) Ambulation Independent Dressing Independent Feeding Independent Behavior Oriented Communication Talks;Understands speaking;Understands Martiniquais Discharge Planning Support Systems Children (daughters will [...] questions for social work at this time. [facility] 06-30-2024 Note 06/30/24 1431 Admission [...] Not Interested Does the patient have a corrections caseworker assigned to them through their insurance? No [...] to send link and activate MyChart? No [facility] 06-30-2024 Note Case was discussed w [employer] the SALVADOR on 06/29/2024. I agree with the history, physical, assessment, and plan of care. I discussed the findings and therapeutic plan. I agree with the documentation, except for any updates below. Maurice Nogueira MD [facility] 06-30-2024 Note Hospital Medicine History and Physical 06/30/2024 1:15 AM THE HOSPITALIST TEAM PREFERS TO USE [employer] FOR COMMUNICATION 7AM-7PM. IF I DO NOT RESPOND WITHIN 15 MINUTES, PLEASE PAGE ME/CALL THROUGH THE VISUAL AND STOCK ASSOCIATE. FROM 7PM-7AM, PLEASE PAGE [phone](COVR) Chief Complaint Direct admission from [facility] with CP History of Present Illness Aby Madrigal is an 59 y.o. female who came from home with past medical history of anxiety, DM2, hypertension, IBS presents a direct mission from [facility] with a chief complaint of chest [...] seen on her EKG. She went to [facility] for the symptoms. Labs were completed [...] on a heparin drip and transferred to [facility] for likely cardiac cath. Review [...] without long-term current use of insulin ([facility]) 06/30/2024 Chest pain 06/30/2024 Elevated troponin 06/30/2024 Hypertensive urgency 06/30/2024 QURESHI (dyspnea on exertion) 05/26/2024 Atherosclerosis of [place] coronary artery of [place] heart without angina pectoris 05/26/2024 Hyperlipidemia 05/26/2024 Murmur, heart 05/26/2024 Sepsis ([facility]) 07/14/2019 BV (bacterial vaginosis) 10/18/2017 GERD (gastroesophageal reflux disease) 10/18/2017 Essential hypertension 10/18/2017 TIA (transient ischemic attack) 10/18/2017 Assessment and Plan Aby Madrigal is an 59 y.o. female who came from home with past medical history of anxiety, DM2, hypertension, IBS presents a direct mission from [facility] with a chief complaint of chest pain. #Chest pain #Elevated troponin Troponin 0.1, will continue to trend -Patient continues to have mild chest discomfort upon arrival -Continue heparin drip -CXR negative for acute process at OSH -EKG showing normal sinus rhythm -N.p.o. for possible right and left cardiac cath in a.m. -Patient with new diastolic dysfunction on echoc (more content not included)... [facility] 06-21-2024 Note [place] Cardiology - [facility] Subjective Aby Madrigal is a 59 y.o. year old female patient being seen for follow up [facility] ED per Dr. Moran. She has [...] attack) QURESHI (dyspnea on exertion) Atherosclerosis of [place] coronary artery of [place] heart without angina pectoris Hyperlipidemia Murmur, heart [...] Judgment: Judgment no (more content not included)... [facility] 05-26-2024 Note [place] [facility] Note Reason for cardiology [...] PSYCH: appropriate mood, (more content not included)... [facility] 11-25-2022 Note OPERATIVE NOTE OPERATION [...] 10 years. CC: Kendra Moran M.D. [facility] 10-11-2022 Note Chief Complaint consultation for [...] Oral, (more content not included)... [facility] Comment on above: Result Comment: Elec tronically Signed By: DIPESH BUCKNER, Umm Valente.germania\Date and Time Signed: 10/11/22 11:01 EST Evaluation + Plan note No data available for this section General Surgery [place] Evaluation note Diagnosis Genitourinary syndrome of menopause- Primary PCB (post coital bleeding) Postcoital bleeding documented in this encounter [facility] SystemEvaluation noteNo assessment information available [facility] Work Phone: Hospital Discharge instructions No data available for this section General Surgery [place] Progress note No data available for this section General Surgery [place] Summary Purpose Family History No Family History [...] section and content) DATE CREATED AUTHOR 12/17/2021 [facility] DATE CREATED AUTHOR AUTHOR'S ORGANIZ ATION 12/16/2022 [facility] DATE CREATED AUTHOR AUTHOR'S ORGANIZ ATION 03/26/2023 [facility] DATE CREATED AUTHOR AUTHOR'S ORGANIZ ATION 02/11/2025 [facility] DATE CREATED AUTHOR AUTHOR'S ORGANIZ ATION 03/04/2025 [facility] DATE CREATED AUTHOR AUTHOR'S ORGANIZ ATION 04/24/2025 [facility] Patient Care team informatio n (unrecognized section and content) [employer] Relationship Specialty Start Date End Date Kendra [...] BE BASED ON THE PRIMARY CLINICAL RECORDS. Compliance Control [facility]. provides no warranty or guarantee of the accuracy or completeness of information in this document.
[2025-05-09 23:04] LABS: Glucometer 119 mg/dL (74-106)
[2025-05-09] MEDS: ISOSORBIDE MONONITRATE 60 MG TAB.ER.24H PO (23:10)
[2025-05-09] MEDS: PANTOPRAZOLE SODIUM 40 MG TABLET.DR PO (23:11)
[2025-05-09] MEDS: HYDRALAZINE HCL 50 MG TABLET PO (23:11)
[2025-05-09] MEDS: QUETIAPINE FUMARATE 100 MG TABLET PO (23:11)
[2025-05-10] VITALS (13 sets, daily range): BP systolic 132–176; BP diastolic 62–68; PULSE 53–69; TEMP 36.4–36.9; O2SAT 91–97
[2025-05-10 05:54] LABS: Basophils Percent Auto 0.8 % (0.2-2.0); Eosinophils Absolute Auto 0.2 10^3/uL (0.0-0.7); Eosinophils Percent Auto 3.1 % (0.9-7.0); Hematocrit 35.1 % (36.0-48.0); Hemoglobin 11.2 g/dL (12.0-16.0); Immature Granulocytes Abs Auto 0.01 10^3/uL (0.00-0.03); Immature Granulocytes Pct Auto 0.2 % (0.0-0.5); Lymphocytes Percent Auto 40.2 % (20.5-60.0); Mean Corpuscular HGB Conc 31.9 g/dL (29.9-35.2); Mean Corpuscular Hemoglobin 26.5 pg (26.7-34.0); Mean Platelet Volume 10.1 fL (9.5-13.5); Monocytes Absolute Auto 0.3 10^3/uL (0.3-0.8); Monocytes Percent Auto 6.8 % (1.7-12.0); Neutrophils Absolute Auto 2.4 10^3/uL (1.4-6.5); Neutrophils Percent Auto 48.9 % (43.0-75.0); Platelet Count 191 10^3/uL (150-450); Red Blood Count 4.23 10^6/uL (4.20-5.40); Red Cell Distribution Width 15.8 % (11.0-15.0); White Blood Count 4.9 10^3/uL (4.0-11.0)
[2025-05-10 06:19] LABS: Alanine Aminotransferase 33 U/L (14-59); Albumin Globulin Ratio 1.1; Albumin Level 3.3 g/dL (3.4-5.0); Alkaline Phosphatase 60 U/L (46-116); Aspartate Amino Transferase 18 U/L (15-37); BUN Creatinine Ratio 21.3; Bilirubin Total 0.4 mg/dL (0.2-1.0); Calcium 9.1 mg/dL (8.5-10.1); Carbon Dioxide 27.7 mmol/L (21.0-32.0); Chloride 108 mmol/L (98-107); Estimated GFR (African America >60 (>=60 mL/min/1.73m^2); Estimated GFR (Non-African Ame >60 (>=60 mL/min/1.73m^2); Globulin 2.9 g/dL; Glucose 100 mg/dL (74-106); Magnesium 2.1 mg/dL (1.8-2.4); Potassium 3.7 mmol/L (3.5-5.1); Sodium 145 mmol/L (136-145); Total Protein 6.2 g/dL (6.4-8.2)
--- NOTE | 2025-05-10 06:47 | P.HP_ITS ---
HPI H&P: HPI History of Present Illness Chief complaint: CHEST PAIN Narrative: Patient presented to the emergency room with chest pain, she does have a history of coronary artery disease with stenting of her LAD, difficult to control blood pressure recently, medications have been adjusted by cardiology, with pain consistent with previous angina, patient mated to observation I set patient up in the medical surgical floor, sleeping but awaken easily, resting comfortably in bed and denies complaints of chest pain Opioid HPI Opioid Management Most Recent Pain and Opioid Data: Last Pain Scale 2 05/09/25, 16:26 Last Pain Assessment 05/09/25, 23:00 Last ED Pain Assessment 05/09/25, 16:26 Last ORT Total Score 0 05/09/25, 22:54 Last ORT Risk Category Low Risk 05/09/25, 22:54 Review of Systems ROS Status of ROS 10 or more systems reviewed and unremark able except as noted in history and below PFS PFS Medical History Elevated troponin ?R79.89 - Other specified abnormal findings of blood chemistry (ICD-10) Hypertensive emergency ?I16.1 - Hypertensive emergency (ICD-10) Acute non-ST elevation myocardial infarction (NSTEMI) ?I21.4 - Non-ST elevation (NSTEMI) myocardial infarction (ICD-10) Chest pain ?R07.9 - Chest pain, unspecified (ICD-10) CAD (coronary artery disease) ?I25.10 - Atherosclerotic heart disease of [place] coronary artery without angina pectoris (ICD-10) Hypertensive urgency ?I16.0 - Hypertensive urgency (ICD-10) HTN (hypertension) ?I10 - Essential (primary) hypertension (ICD-10) Hypertensive urgency ?I16.0 - Hypertensive urgency (ICD-10) Chest pain ?R07.9 - Chest pain, unspecified (ICD-10) Anxiety ?F41.9 - Anxiety disorder, unspecified (ICD-10) HTN (hypertension) ?I10 - Essential (primary) hypertension (ICD-10) Hypokalemia ?E87.6 - Hypokalemia (ICD-10) Hypertension, uncontrolled ?I10 - Essential (primary) hypertension (ICD-10) Chest pain ?R07.9 - Chest pain, unspecified (ICD-10) NSTEMI (non-ST elevated myocardial infarction) ?I21.4 - Non-ST elevation (NSTEMI) myocardial infarction (ICD-10) Shortness of breath ?R06.02 - Shortness of breath (ICD-10) Headache ?R51.9 - Headache, unspecified (ICD-10) Elevated d-dimer ?R79.89 - Other specified abnormal findings of blood chemistry (ICD-10) Hypertensive emergency ?I16.1 - Hypertensive emergency (ICD-10) Uncontrolled hypertension ?I10 - Essential (primary) hypertension (ICD-10) Irritable bowel syndrome ?K58.9 - Irritable bowel syndrome without diarrhea (ICD-10) H/O nephrolithotomy with removal of calculi ?Z98.890 - Other specified postprocedural states (ICD-10) ?Z87.442 - Personal history of urinary calculi (ICD-10) Kidney stone ?N20.0 - Calculus of kidney (ICD-10) Sepsis ?A41.9 - Sepsis, unspecified organism (ICD-10) H/O angiography ?Z92.89 - Personal history of other medical treatment (ICD-10) Lung nodule ?R91.1 - Solitary pulmonary nodule (ICD-10) Anxiety ?F41.9 - Anxiety disorder, unspecified (ICD-10) HTN (hypertension) ?I10 - Essential (primary) hypertension (ICD-10) Diabetes ?E11.9 - Type 2 diabetes mellitus without complications (ICD-10) TIA (transient ischemic attack) ?G45.9 - Transient cerebral ischemic attack, unspecified (ICD-10) Surgical History H/O heart artery stent ?Z95.5 - Presence of coronary angioplasty implant and graft (ICD-10) History of appendectomy ?Z90.49 - Acquired absence of other specified parts of digestive tract (ICD- 10) H/O tubal ligation ?Z98.51 - Tubal ligation status (ICD-10) History of cholecystectomy ?Z90.49 - Acquired absence of other specified parts of digestive tract (ICD- 10) Family History Mother Family history of cancer Father MVA (motor vehicle accident) Brother Family history of stroke Social History Within the past year, how often did you have a drink containing alcohol: never Within the past year, how often did you have six or more drinks on one occasion: never Score interpretation: A score less than 3 is consistent with normal alcohol consumption. Smoking status: Former smoker Second hand tobacco smoke exposure: No Non-prescribed substance use: denies use Previous occupational history: no Known occupational exposures/hazards: No Highest level of school completed/degree received: high school graduate Do you want help with school or training: No Are you now , , , , never or living with a partner: In a typical week, how many times do you talk on the telephone with family, friends, or neighbors: 3 or more times per week How often do you get together with friends or relatives: 3 or more times per week How often do you attend congregation or congregational services: never Do you belong to any clubs or organizations such as congregation groups unions, [employer] or athletic groups, or school groups: no Total score: 1 Score interpretation: A score of less than or equal to 1 indicates the most socially isolated. Little interest or pleasure in doing things: not at all Feeling down, depressed, or hopeless: not at all Feel stressed/tense/nervous/anxious/difficulty sleeping: not at all Do you think of yourself as: straight/heterosexual Gender Identity: female Meds Home Medications and Allergies Home Medications ?Medication ?Instructions ?Recorded ?Confirmed ?Type aspirin 81 mg capsule 81 mg PO DAILY 04/22/2404/22 History clopidogrel 75 mg tablet 75 mg PO DAILY 07/01/2404/22 History quetiapine 100 mg tablet (Seroquel) 100 mg PO .QHS 01/1505/09/25 History rosuvastatin 40 mg tablet 40 mg PO DAILY 07/24/2404/22 History isosorbide mononitrate 60 mg 60 mg PO BID 07/31/24 History tablet,extended release 24 hr lorazepam 1 mg tablet (Ativan) 1 mg PO Q8H anxiety 08/1505/10/25 History hydralazine 50 mg tablet 50 mg PO TID PRN hypertensio n 09/15/24 05/09/25 History canagliflozin 300 mg tablet 300 mg PO DAILY #30 tabs 1 01/14/24 05/09/25 Rx (Invokana) pantoprazole 40 mg tablet,delayed 40 mg PO BID #60 tab s 11/13/24 05/09/25 Rx release (Protonix) carvedilol 25 mg tablet 12.5 mg PO Q8H 05/09/2504/22 History magnesium oxide 400 mg (241.3 mg 400 mg PO .QD 5 05/10/25 History magnesium) tablet metformin 500 mg tablet 500 mg PO BIDWM 05/10/25 History spironolactone 50 mg tablet 50 mg PO .QD 05/10/2504/22 History Allergies Allergy/AdvReac Type Severity Reaction Status Date / Time lisinopril Allergy Severe Cough Verified 05/09/25 15:36 amlodipine Allergy Mild Headache Verified 05/09/25 15:36 alprazolam (From Xanax) AdvReac Severe Watery Eye Verified 05/09/25 15:36 Exam Constitutional Vital Signs, click to edit/add: Last Vital Signs Temp 98.1 F 05/10/25 04:00 Pulse 53 L 05/10/25 05:58 Resp 16 05/10/25 04:00 BP 136/66 05/10/25 04:00 Pulse Ox 97 05/10/25 05:05 O2 Del Method Nasal Cannula 05/10/25 05:05 O2 Flow Rate 2 05/10/25 05:05 Documenting provider has reviewed patient's vital signs: yes Common normals: no apparent distress Chest Common normals: inspection of chest normal and palpation of chest normal Respiratory Common normals: normal respiratory effort, no retractions and clear to auscultation bilaterally Cardio Common normals: regular rate (Slightly bradycardic), regular rhythm and no murmurs GI Common normals: Normal to inspection, nondistended, normoactive bowel sounds present, soft to palpation and non-tender Extremity Common normals: abnormal to inspection (1+ edema chronic for her) Results Labs Labs: Short CBC 05/09/25 05/10/25 Range/Units 15:45 05:22 WBC 4.8 4.9 (4.0-11.0) 10^3/uL Hgb 12.3 11.2 L (12.0-16.0) g/dL Hct 38.6 35.1 L (36.0-48.0) % Plt Count 216 191 (150-450) 10^3/uL BMP 05/09/25 05/10/25 15:45 05:22 Sodium 144 145 Potassium 4.2 3.7 Chloride 105 108 H Carbon Dioxide 27.8 27.7 BUN 15.0 19.0 H Creatinine 1.02 0.89 Glucose 120 H 100 Calcium 9.3 9.1 Liver Function 05/09/25 05/10/25 Range/Units 15:45 05:22 Total Bilirubin 0.4 0.4 (0.2-1.0) mg/dL AST 26 18 (15-37) U/L ALT 39 33 (14-59) U/L Alkaline Phosphatase 70 60 (46-116) U/L Albumin 3.7 3.3 L (3.4-5.0) g/dL Assessment and Plan Assessment and Plan (1) Chest pain: (2) Hypomagnesemia: (3) CAD (coronary artery disease): (4) HTN (hypertension): Qualifiers: Hypertension type: unspecified Qualified Code(s): I10 - Essential (primary) hypertension (5) Uncontrolled hypertension: (6) Diabetes: Qualifiers: Diabetes mellitus type: type 2 Diabetes mellitus retirement insulin use: without retirement use Diabetes mellitus complication status: without complication Qualified Code(s): E11.9 - Type 2 diabetes mellitus without complications Plan Admission findings: Bradycardia, labile hypertension, respiratory distress resulting in chest pain with the patient with known history of coronary artery disease status post LAD stenting Chest pain: Consult to cardiology, maintain aspirin and Plavix, troponins are negative, ECG with consistent changes from as far back as a year ago with T wave inversion in the high lateral leads, check echo Labile hypertension-maintain home medications, adjust throughout the day today depending on results, consult to cardiology Diabetes mellitus-Sugar slightly elevated on admission but normal this morning Iron deficiency anemia-monitor as an outpatient Coronary artery disease secondary to hypercholesterolemia-maintain current medications Generalized anxiety disorder-as needed medications Chronic edema-maintain current medications, added compression hose History of hypomagnesemia-level pending Admission status: Patient admitted to the medical surgical floor with chest pain, troponins are negative, echocardiogram is pending, consult to cardiology is pending, she is already surpassed 1 midnight, if medically necessary treatment is to span 2 midnights she will be changed to inpatient status, currently may attain observational status
--- NOTE | 2025-05-10 06:50 | CA_ITS ---
Patient Name: MILAN RASMUSSEN MR#: [id number] : 1965 Exam Date: 05/10/2025 Ordering Doctor: DR KENDRA MORAN . ECHOCARDIOGRAM REPORT PROCEDURE: CA ECHO DOPPLER COMPLETE INDICATIONS: Dyspnea, cardiac stent in LAD, NSTEMI, diabetes, hypertension COMPARISON: None. DESCRIPTION: COMPLETE ECHOCARDIOGRAM Real-time transthoracic echocardiography with 2D, M-mode, spectral and color flow Doppler performed. QUALITY: Technical quality was good. LEFT VENTRICLE: Normal chamber size. Severely thickened septal wall (1.6 cm). Hyperdynamic systolic function. There is increased intracavitary gradient measuring at 34 mmHg with Valsalva. No evidence of systolic anterior motion of the anterior mitral valve leaflet. LV EF: Hyperdynamic left ventricular ejection fraction, (>75%). DIASTOLIC: Diastolic function is indeterminate. ATRIAL SEPTUM: Visually appears intact. LEFT ATRIUM: Mild dilatation. RIGHT ATRIUM: Normal chamber size. RIGHT VENTRICLE: Normal chamber size. Normal right ventricular systolic function. TRICUSPID VALVE: Normal mobility and thickness. No stenosis with trivial regurgitation. No evidence of pulmonary hypertension. RVSP 34 mmHg MITRAL VALVE: Normal mobility and thickness. No evidence of mitral valve stenosis. There is no mitral annular calcification. Trivial mitral regurgitation. AORTIC VALVE: Normal trileaflet appearance. No visible sclerosis. Normal leaflet mobility. No evidence of aortic valve stenosis. No aortic regurgitation. AORTIC ROOT: Normal diameter and appearance, measuring 3.0 cm. PULMONIC VALVE: Normal thickness and mobility. No stenosis. Trivial regurgitation. PERICARDIUM: No evidence of pericardial effusion. IVC: Collapses with inspiration. IVC is normal in size. PLEURA: CONCLUSION: 1. Left ventricular hypertrophy with significant hypertrophy of the basal septum up to 1.6 cm. Hyperdynamic left ventricular systolic function with increased intracavitary gradients up to 34 mmHg with Valsalva maneuver. No evidence of systolic anterior motion of the anterior mitral valve leaflet. 2. Normal right ventricular size and systolic function. 3. No significant valvular dysfunction. 4. Normal right-sided pressures. Adult Echocardiography Procedure Report Left Ventricle LVEDD (3.7 - 5.6 cm): 4.34 cm LVESD (2.2 - 4.0 cm): 2.35 cm LVIVS thickness (0.6 - 1.2 cm): 1.60 cm LVPW thickness (0.5 - 1.0 cm): 0.92 cm e': 0.08 m/s E - e': 6.56 LVOT Max Gradient: 6.02 mm[Hg] LVOT Area (cm2): 1.23 m/s Peak Velocity (LVOT): 1.23 m/s Mean Velocity (LVOT): 0.82 m/s LVOT Diameter 2.36 cm Left Atrium LA Volume Index (2D A2C): 36.66 ml/m2 Left Atrium Systolic Dimension: 3.91 cm Mitral Valve MV E to A Ratio: 0.67 Mitral Valve A-Wave Peak Velocity: 0.81 m/s Mitral Valve E-Wave Peak Velocity: 0.54 m/s Right Ventricle Aorta AO Root Diam: 3.00 cm Aortic Valve AoV Area (Peak David): 2.61 cm2, 2.61 cm2 AoV Area (VTI): 2.96 cm2, 2.96 cm2 Peak Velocity(Antegrade Flow): 2.05 m/s Peak Gradient(Antegrade Flow): 16.85 mm[Hg] Mean Velocity(Antegrade Flow): 1.29 m/s Mean Gradient(Antegrade Flow): 7.90 mm[Hg] Velocity Time Integral: 47.92 cm Tricuspid Valve Peak Velocity (Regurgitant Flow): 2.80 m/s Pulmonic Valve Peak Gradient: 4.79 mm[Hg], 5.03 mm[Hg] Right Atrium Right Atrium Systolic Pressure: 28.09 ml, 28.09 ml Dictated by: Rafa Spence M.D. on 05/11/2025 at 08:10 Approved by: Rafa Spence M.D. on 05/11/2025 at 08:16
[2025-05-10] MEDS: CLOPIDOGREL BISULFATE 75 MG TABLET PO (08:33)
[2025-05-10] MEDS: PANTOPRAZOLE SODIUM 40 MG TABLET.DR PO (08:33)
[2025-05-10] MEDS: ASPIRIN 81 MG TABLET.DR PO (08:33)
[2025-05-10] MEDS: CANAGLIFLOZIN 100 MG TABLET PO (08:34)
[2025-05-10] MEDS: CARVEDILOL 25 MG TABLET 37.5 MG PO (08:34)
[2025-05-10] MEDS: SPIRONOLACTONE 25 MG TABLET 12.5 MG PO (08:35)
[2025-05-10 08:40] LABS: Troponin I High Sensitivity 10.2 pg/mL (4.0-51.3)
[2025-05-10] MEDS: LORAZEPAM 1 MG TABLET PO (10:58)
--- NOTE | 2025-05-14 13:58 | CM.DCFOLLOWU ---
05/14-1st attempt. No answer
--- NOTE | 2025-05-16 13:27 | CM.DCFOLLOWU ---
Person spoke with: patient How are you feeling? well How is your pain?none Did you understand your discharge instructions?yes Do you have any questions about your discharge instructions? no Were you given any prescriptions at discharge? yes Were you able to get your prescriptions filled? yes Do you understand how to take your medications as ordered?yes Do you have any questions about your follow up appointment and do you plan to keep your follow up appointment? had follow up with PCP and Cardiology, no questions Is there anything else that you would like to discuss?no Questions/Comments/Concerns/Other:none
== END 2025-05-10 15:35 | disposition home or self-care (01) ==
LOC: ER 19:09 → MS 22:51
PROVIDERS: Registered Nurse; Admitting Provider Family Medicine; Emergency Provider Emergency Medicine; PCP Family Medicine; Visit Provider Family Medicine
DX: R07.9 Chest pain, unspecified (principal); I25.10 Atherosclerotic heart disease of native coronary artery without angina pectoris; R51.9 Headache, unspecified; Z95.5 Presence of coronary angioplasty implant and graft; Z87.891 Personal history of nicotine dependence; Z79.82 Long term (current) use of aspirin; Z79.02 Long term (current) use of antithrombotics/antiplatelets; Z79.84 Long term (current) use of oral hypoglycemic drugs; Z79.899 Other long term (current) drug therapy; E83.42 Hypomagnesemia; I10 Essential (primary) hypertension; E11.9 Type 2 diabetes mellitus without complications; R06.03 Acute respiratory distress; D50.9 Iron deficiency anemia, unspecified; Z90.49 Acquired absence of other specified parts of digestive tract; Z98.51 Tubal ligation status; E78.00 Pure hypercholesterolemia, unspecified; F41.1 Generalized anxiety disorder; R60.0 Localized edema
CPT/HCPCS: 36415; 71045; 80053; 82948; 83690; 83735; 83880; 84484; 85025; 93005; 93306; 93971; 94667; 94761; 96374; 99285; G0378; J1885

== ENCOUNTER 2025-05-14 13:11 | Outpatient (OUT) | payer MEDICAID, SELFPAY ==
--- OUTSIDE RECORDS SUMMARY | 2025-05-14 13:13 | XMS_ITS | Clinical Summary ---
Author Organization [facility] Address [address] [place] [address] Care Team Providers Care Dry Drug Worker Name Role Phone Carlito Murillo MD Primary Care Provider [phone] Allergies Active Allergy Reactions Criticality Noted Date [...] mg by mouth if needed for anxiety. 10/04/20 17 Active Protonix 40 mg EC tablet Take 40 mg by mouth if needed each day. 09/20/20 23 Active QUEtiapine (SEROquel) 25 mg tablet Take 100 mg by mouth at bedtime. Active clopidogrel (Plavix) 75 mg tabletIndications :Chest pain,NSTEMI (non-ST elevated myocardial infarction) (CMS/HCC) Take 1 tablet (75 mg) by mouth in the morning. 90 tablet 3 07/01/20 24 025 Active rosuvastatin (Crestor) 40 mg tabletIndications :Chest pain,NSTEMI (non-ST elevated myocardial infarction) (CMS/HCC) Take 1 tablet (40 mg) by mouth in the morning. 30 tablet 07/01/20 24 025 Active isosorbide mononitrate ER (Imdur) 60 mg 24 hr tabletIndications :Resistant hypertension Take 1 tablet (60 mg) by mouth in the morning for 98 doses. Do not crush or chew. 30 tablet 3 07/12/20 24 Active Additional Information Patient taking differently:60 mg oralNightly, Do not crush or chew., Reported on 05/14/2025 Invokana 100 mg Take 100 mg by mouth in the morning. 08/23/20 Active hydrALAZINE (Apresoline) 50 mg tablet Take 50 mg by mouth if needed. 08/23/20 Active QUEtiapine (SEROquel) 100 mg tablet Take 100 mg by mouth in the morning. 10/07/20 Active LORazepam (Ativan) 1 mg tablet TAKE 1 TABLET BY MOUTH THREE TIMES A DAY FOR 30 DAYS 10/17/20 Active albuterol (Ventolin HFA) 90 mcg/actuation inhalerIndication s:Wheezing Inhale 2 puffs every 4 (four) hours if needed for wheezing or shortness of breath. 18 g 5 10/26/20 24 025 Active sodium chloride 1,000 mg tabletIndications :Primary aldosteronism,Hyp ertension due to endocrine disorder Take 1 tablet 3 times a day for 3 days, collect urine from day 3- 4 12 tablet 03/02/20 25 Active Additional Information Patient not taking.Reason: Other, Reported on 05/14/2025 carvedilol (Coreg) 25 mg tabletIndications :Coronary artery disease involving spokane coronary artery of spokane heart without angina pectoris,Primary hypertension Take 1.5 tablets by mouth twice daily. 04/23/20 25 Active spironolactone (Aldactone) 50 mg tabletIndications :Primary hypertension Take 0.5 tablets (25 mg) by mouth in the morning. 04/23/20 25 Active magnesium oxide (Mag-Ox) 400 mg (241.3 mg magnesium) tablet Take 400 mg by mouth in the morning. 05/01/20 25 Active carvedilol (Coreg) 25 mg tabletIndications :Chest pain,NSTEMI (non-ST elevated myocardial infarction) (CMS/HCC) Take 1 tablet (25 mg) by mouth with breakfast and with evening meal. 04/10/20 25 025 Discontin ued(Dose adjustmen t) spironolactone (Aldactone) 50 mg tabletIndications :Hypertension due to endocrine disorder,Adenoma of left adrenal gland,Primary aldosteronism Take 1 tablet (50 mg) by mouth in the morning. 60 tablet 04/10/20 25 025 Discontin ued(Dose adjustmen t) Active Problems Problem Noted Date Diagnosed Date Hypertension due to endocrine disorder 5 Adenoma of left adrenal gland 01/09/2025 Resistant hypertension 10/05/2024 Primary aldosteronism 10/03/2024 Depression, major, severe recurrence 09/04/2024 Panic disorder 09/04/2024 Hypokalemia 07/11/2024 Coronary artery disease invo lving spokane coronary artery of sp[place] heart without angina pectoris 07/11/2024 Anxiety 06/30/2024 [...] Date Hypertensive urgency 06/30/2024 024 Atherosclerosis of sp[place] co ronary artery of spok[place] heart without angina pectoris 05/26/2024 Encounters Date Type Department Care Team Description 05/14/2025 11:30 AM EDT Office Visit [address] [phone] Rafa Spence MD Coronary artery disease involving spokane coronary artery of spok[place] heart with other form of angina pectoris (Primary Dx); Primary hypertension; Status post insertion of drug eluting coronary artery stent; Renal artery stenosis 04/23/2025 2:15 PM EDT Office Visit [place] [address] [place] [address] Rafa Spence MD Coronary artery disease involving spokane coronary artery of spokane heart without angina pectoris (Primary Dx); Primary hypertension; Status post insertion of drug eluting coronary artery stent; Renal artery stenosis 04/20/2025 Orders Only [address] [phone] Mary Gonzalez MD 04/10/2025 1:00 PM EDT Follow-Up [facility] at [address] [address] Feng Cloud MD Hypertension due to endocrine disorder (Primary Dx); Adenoma of left adrenal gland; Primary aldosteronism; Chest pain; NSTEMI (non-ST elevated myocardial infarction) ([facility]/HCC) 03/02/2025 Orders Only [facility] at [address] [address] Feng Cloud MD 02/26/2025 2:00 PM EDT Office Visit [address] [phone] Rafa Spence MD Coronary artery disease involving spokane coronary artery of spok[place] heart without angina pectoris (Primary Dx); Primary hypertension; Status post insertion of drug eluting coronary artery stent; Renal artery stenosis 02/26/2025 Telephone [facility] at [facility] Nephrology [address] [place] [phone] Armando Kiran from Last 3 Months Family History Medical History Relation Name Comments Accidental Father Lung cancer Mother Lung cancer Sister Relation Name Status Comments Brother Alive Father Mother Sister Social History Tobacco Use Types Packs/Day Years Used Date Smoking Tobacco: Former Cigarettes 1 45 1 977 - 2 Smokeless Tobacco: Never Tobacco Cessation:Counseling Given: Not Answered Alcohol Use Standard Drinks/Week Comments Not Currently 0 (1 standard drink = 0.6 oz pure alcohol) Used to drink a lot on the weekend [facility] Utilities Answer Date Recorded In the past 12 months has [employer], gas, oil, or water [employer] threatened to shut off services in your [...] week 07/11/2024 How often do you attend [facility] or islam services? Never 07/11/2024 Do you belong to any clubs o r organizations such as zoroastrianism groups, unions, fraternal or athletic groups, or [...] Recorded Patient Health Questionnaire-2 Score 0 10/26/2024 [facility] [place] of Occupat ional Health - Occupational Stress [...] Sign Reading Time Taken Comments Blood Pressure 113/62 05/14/2025 12:23 PM EDT Pulse 70 05/14/2025 12:23 PM EDT Temperature 36.4 C (97.6 F) 10/26/2024 12:48 PM EST Respiratory Rate 16 07/18/2024 10:57 AM EDT Oxygen Saturation 94% 05/14/2025 12:23 PM EDT Inhaled Oxygen Concentration - - Weight 88 kg (194 lb) 05/14/2025 12:23 PM EDT Height 160 cm (5' 3 ) 05/14/2025 12:23 PM EDT Body Mass Index 34.37 05/14/2025 12:23 PM EDT Plan of Treatment Upcoming Encounters Date Type Department Care Team (Late st Contact Info) Description 07/24/2025 1:00 PM EDT Follow-Up [facility] at [address] [place] [phone] Feng Cloud MD [address] [facility] [address] [place] [address] Health Maintenance Due Date Last [...] Vaccines (1 of 2) 2014 COVID-19 Vaccine (3 [...] this topic Medical Devices Implanted Type Area Import Manager Device Identifier Shelf Expiration Date Model / Serial / Lot Stent,Holly Mr 2.75 X 20 - [id number] - [id number] Implanted:Qty: 1 on 06/30/2024 by Brunilda Cuellar MD at [facility] Drug Eluting Stent [employer] [id number] 04/13/2025 [id number] / [id number] / [id number] Procedures Procedure Name Priority Date/Time Associated Diagnosis [...] ECG 12-LEAD Routine 03/25/2025 2:36 PM EDT from Last 3 Months Results * Basic metabolic panel (04/09/2025 2:39 PM EDT) Blood Venous blood specimen / Unknown [facility] Provider MD LAB BLOOD ORDERABLES Kate l Result * CBC (04/01/2025 2:39 PM EDT) Only the most recent of2 resultswithin the time period is included. Blood Venous blood specimen / Unknown Result [facility] Provider MD LAB BLOOD ORDERABLES Kate l Result * Comprehensive metabolic panel (04/01/2025 2:39 PM EDT) Only the most recent of3 resultswithin the time period is included. Blood Venous blood specimen / Unknown [facility] Provider MD LAB BLOOD ORDERABLES Kate l Result * Magnesium (03/30/2025 2:38 PM EDT) Blood Venous blood specimen / Unknown [facility] Provider MD LAB BLOOD ORDERABLES Kate l Result * C-reactive protein (03/25/2025 2:37 PM EDT) Blood Venous blood specimen / Unknown Historical Provider LAB BLOOD ORDERABLES Kate l Result * ECG 12 lead (03/25/2025 2:36 PM EDT) Historical Provider ECG ORDERABLES Final Res ult from Last 3 Months Insurance [address] [place] [address] [facility] MEDICAID Advance Directives * Full Code (Latest Code Status on File) Date Activated Date Inactivated Comments 07/11/2024 12:18 PM 07/12/2024 1:06 PM * Full Code Date Activated Date Inactivated Comments 06/30/2024 1:12 AM 07/01/2024 2:41 PM Care Teams Dry Drug Worker Relationship Specialty Start Date End Date Carlito Murillo MD [address] [facility] [address] PCP - General 05/24/24
--- OUTSIDE RECORDS SUMMARY | 2025-05-14 13:13 | XMS_ITS | Referral Summary ---
Author Organization [facility] Address [address] [place] [address] Care Team Providers Care Shirt Line Operator Name Role Phone Carlito Murillo MD Primary Care Provider [phone] Encounters Date Type Department Care Team Description 05/14/2025 11:30 AM EDT Office Visit [address] [phone] Rafa Spence MD Coronary artery disease involving ramp[place] coronary artery of [place] heart with other form of angina pectoris (Primary Dx); Primary hypertension; Status post insertion of drug eluting coronary artery stent; Renal artery stenosis 04/23/2025 2:15 PM EDT Office Visit [address] [phone] Rafa Spence MD Coronary artery disease involving rampart coronary artery of rampart heart without angina pectoris (Primary Dx); Primary hypertension; Status post insertion of drug eluting coronary artery stent; Renal artery stenosis 04/20/2025 Orders Only [address] [phone] ProviderMary MD 04/10/2025 1:00 PM EDT Follow-Up [facility] Comprehensive Medical Practice at [address] [phone] Feng Cloud MD Hypertension due to endocrine disorder (Primary Dx); Adenoma of left adrenal gland; Primary aldosteronism; Chest pain; NSTEMI (non-ST elevated myocardial infarction) ([facility]/HCC) 03/02/2025 Orders Only [facility]ology [address] [place] [address] Feng Cloud MD 02/26/2025 Telephone [facility] Ne[facility]rology [address] [place] [address] Armando Kiran 02/26/2025 2:00 PM EDT Office Visit [facility] Heart at [facility] [address] [place] [address] Rafa Spence MD Coronary artery disease involving rampart coronary artery of rampart heart without angina pectoris (Primary Dx); Primary [...] tabletIndications :Chest pain,NSTEMI (non-ST elevated myocardial infarction) ([facility]/HCC) Take 1 tablet (75 mg) by mouth [...] mg by mouth in the morning. 08/23/20 24 Active hydrALAZINE (Apresoline) 50 mg tablet Take [...] 25 mg tabletIndications :Coronary artery disease involving rampart coronary artery of rampart heart without angina pectoris,Primary hypertension Take 1.5 [...] Hypokalemia 07/11/2024 Coronary artery disease invo lving rampart coronary artery of rampart heart without angina pectoris 07/11/2024 Anxiety 06/30/2024 [...] Date Hypertensive urgency 06/30/2024 024 Atherosclerosis of rampart co ronary artery of rampart heart without angina pectoris 05/26/2024 Social History Tobacco Use Types Packs/Day Years Used Date Smoking Tobacco: Former Cigarettes 1 45 1 977 - 2021 Smokeless Tobacco: Never Tobacco Cessation:Counseling Given: Not Answered Alcohol Use Standard Drinks/Week Comments Not Currently 0 (1 standard drink = 0.6 oz pure alcohol) Used to drink a lot on the weekend [facility] Utilities Answer Date Recorded In the past 12 months has e [employer], gas, oil, or water [employer] threatened to shut off services in your [...] often do you attend chur ch or congregational services? Never 07/11/2024 Do you belong to any clubs o r organizations such as roman catholic groups, unions, [...] Recorded Patient Health Questionnaire-2 Score 0 10/26/2024 [facility] of Occupat ional Health - Occupational Stress [...] Info) Description 07/24/2025 1:00 PM EDT Follow-Up [facility] at [facility] [address] [place] [address] Feng Cloud MD [address] [place] [address] Medical Devices Implanted Type Area Commercial Field Inspector Device Identifier Shelf Expiration Date Model / Serial / Lot Stent,Holly Mr 2.75 X 20 - [id number] - [id number] Implanted:Qty: 1 on 06/30/2024 by Brunilda Cuellra MD at [facility] Drug Eluting Stent Ambarella [id number] 04/13/2025 [id number] / [id number] Procedures Procedure Name Priority Date/Time Associated Diagnosis [...] Venous blood specimen / Unknown Historical Provider MD LAB BLOOD ORDERABLES Kate l [...] EDT) Blood Venous blood specimen / Unknown [facility] Provider LAB BLOOD ORDERABLES Kate l Result * C-reactive protein (03/25/2025 2:37 PM EDT) Blood Venous blood specimen / Unknown Result [facility] Provider LAB BLOOD ORDERABLES Kate l Result * ECG 12 lead (03/25/2025 2:36 PM EDT) [facility] Provider ECG ORDERABLES Final Res ult from Last 3 Months Insurance [address] [place] [address] [facility] MEDICAID Advance Directives * Full Code (Latest Code Status on File) Date Activated Date Inactivated Comments 07/11/2024 12:18 PM 07/12/2024 1:06 PM * Full Code Date Activated Date Inactivated Comments 06/30/2024 1:12 AM 07/01/2024 2:41 PM Care Teams Shirt Line Operator Relationship Specialty Start Date End Date Carlito Murillo MD [address] [facility] [address] PCP - General 05/24/24
--- OUTSIDE RECORDS SUMMARY | 2025-05-14 13:13 | XMS_ITS | Encounter Summary ---
Author Organization [employer] Address [facility] [place] [id number] [address] [place] [address] Care Team Providers Care Transfusion Nurse Name Role Phone Carlito Murillo MD Primary Care Provider [phone] Reason for Referral * Diagnostic Imaging (Routine) - Closed Specialty Diagnoses / Procedures Referred By Contac t Referred To Contact Radiology Diagnoses Pain Procedures MRA head with and without contrast External, Scanning Provider Referral ID Status Reason Start Date Expiration Date Visits Re quested Visits Authorized [id number] Closed 11/10/2021 11/10/2022 1 1 * Diagnostic Imaging (Routine) - Closed Specialty Diagnoses / Procedures Referred By Contac t Referred To Contact Radiology Diagnoses Pain Procedures MR brain without contrast External, Scanning Provider Referral ID Status Reason Start Date Expiration Date Visits Re quested Visits Authorized [id number] Closed 11/10/2021 11/10/2022 1 1 Encounter Details Date Type Department Care Team ([facility] Contact Info) Description 11/10/2021 Orders Only [facility] [address] [place] [phone] Transcribe, Orders Support User Pain (Primary [...] EDT Office Visit [facility]Gynecology [address] [place] [phone] Afsaneh Jacome, HIGH SCHOOL SOCIAL STUDIES TEACHER-CUTTER OPERATOR BRICK [address] [place] [address] documented as of this encounter Results * MRA head with and without contrast (11/06/2021 11:40 AM EST) us Scanning Provider External IMG MRI ORDERABLES Fi nal Result * MR brain without contrast (11/06/2021 11:35 AM EST) us Scanning Provider External IMG MRI ORDERABLES Fi nal Result documented in this encounter Visit Diagnoses Diagnosis Pain- Primary Generalized pain documented in this encounter Care Teams Transfusion Nurse Relationship Specialty Start Date End Date Carlito Murillo MD PCP - General Family Medicine 06/06/19 documented as of this encounter
--- OUTSIDE RECORDS SUMMARY | 2025-05-14 13:13 | XMS_ITS | Clinical Summary ---
Author Organization [employer] Address [id number] [address] [place] [address] Care Team Providers Care Veneer Jointer Operator Name Role Phone Carlito Murillo MD Primary Care Provider [phone] Allergies Active Allergy Reactions Criticality Noted Date [...] 8:45 AM EDT Office Visit [facility]necolo gy [address] [place] [address] Farzana Damon, MEDICAL SCIENTIFIC OFFICER-KISS SETTER HAND Genitourinary syndrome of menopause (Primary Dx); PCB (post coital bleeding) 03/02/2025 Travel from Last 3 Months Family History [...] EDT Office Visit [facility] [address] [place] [phone] Afsaneh Jacome, MEDICAL SCIENTIFIC OFFICER-KISS SETTER HAND [address] [facility] [place], [place] [phone] Health Maintenance Due Date Last Done Comments [...] 03/02/2026 03/02/2025 Medical Devices Not on file Insurance [address] [place] [address] [employer] MEDICAID Care Teams Veneer Jointer Operator Relationship Specialty Start Date End Date Carlito Murillo MD PCP - General Family Medicine 06/06/19
--- OUTSIDE RECORDS SUMMARY | 2025-05-14 13:13 | XMS_ITS | Encounter Summary ---
Author Organization [employer] Address [id number] [address] [place] [address] Care Team Providers Care Unix Analyst Name Role Phone Carlito Murillo MD Primary Care Provider [phone] Reason for Referral * Diagnostic Imaging (Routine) - Closed Specialty Diagnoses / Procedures Referred By Contac t Referred To Contact Radiology Diagnoses Pain Procedures CT angiogram chest [facility] [address] [place] [phone] Phone: tel: fax: Referral ID Status Reason Start Date Expiration Date Visits Re quested Visits Authorized [id number] Closed 07/20/2024 07/20/2025 1 1 * Diagnostic Imaging (Routine) - Pending Review Specialty Diagnoses / Procedures Referred By Contac t Referred To Contact Radiology Diagnoses Pain Procedures NON [facility] PET [facility] WHOLE BODY [facility] [place] [address] Phone: tel: fax: Referral ID Status Reason Start Date Expiration Date V isits Requested Visits Authorized [id number] Pending Review 07/20/2024 07/20/2025 1 1 Encounter Details Date Type Department Care Team (Late st Contact Info) Description 07/20/2024 Orders Only [facility] [address] [place] [phone] Transcribe, Orders Support User Pain (Primary [...] EDT Office Visit [facility]ne[facility] [address] [facility] [place] [phone] Afsaneh Jacome, PRESENTATION MANAGER-CLEANER CARPET AND UPHOLSTERY [address] [place], [place] [phone] documented as of this encounter Results * NON [facility] PET CT WHOLE BODY (2024 4:45 PM EDT) us Scanning Provider External IMG PET ORDERABLES Fi nal Result * CT angiogram chest (04/21/2024 9:20 PM EDT) us Scanning Provider External IMG CT ORDERABLES Fin al Result documented in this encounter Visit Diagnoses Diagnosis Pain- Primary Generalized pain documented in this encounter Care Teams Unix Analyst Relationship Specialty Start Date End Date Carlito Murillo MD PCP - General Family Medicine 06/06/19 documented as of this encounter
--- OUTSIDE RECORDS SUMMARY | 2025-05-14 13:13 | XMS_ITS | Encounter Summary ---
Author Organization [facility] tem Address [id number] [address] [place] [address] Care Team Providers Care Elementary Assistant Teacher Name Role Phone Carlito Murillo MD Primary Care Provider [phone] Reason for Referral * Diagnostic Imaging (Routine) - Pending Review Specialty Diagnoses / Procedures Referred By Contac t Referred To Contact Radiology Diagnoses Primary aldosteronism Procedures IR venography venous sample Feng Cloud MD [address] [place] [address] Phone: tel: fax: Referral ID Status Reason Start Date Expiration Date V isits Requested Visits Authorized [id number] Pending Review 01/23/2025 01/23/2026 1 1 Encounter Details Date Type Department Care Team (Latest Contact Info) Description 01/23/2025 Orders Only [facility] Division [facility] - Interventional Radiology [address] [place] [phone] Feng Cloud MD [address] [place] [address] Primary aldosteronism (CMS-HCC) (Primary Dx) Social History [...] EDT Office Visit [facility]ne[facility] [address] [place] [phone] Afsaneh Jacome, DINING SERVICE WORKER-MIXING AND MOLDING MACHINE OPERATOR [address] [place] [address] documented as of this encounter Results * [...] advanced into the IVC and a 5 Divehi vascular sheath was placed. Selective catheterization of the right adrenal vein was performed using [facility] catheter and samples obtained. There was another [...] was achieved using a micropuncture set. A Extenda-Dent wire wasadvanced into the IVC and a 5 Divehi vascular sheath was placed. Selectivecatheterization of the [...] unspecified documented in this encounter Care Teams Elementary Assistant Teacher Relationship Specialty Start Date End Date Carlito Murillo MD PCP - General Family Medicine 06/06/19 documented as of this encounter
--- NOTE | 2025-05-14 13:14 | MR_ITS ---
[address] [address] Patient Name: MILAN RASMUSSEN MRN: [id number] date: 1965 Sex: F Assigned Patient Location: MRI Current Patient Location: MRI Accession/Order Number: [id number] Exam Date: 05/14/2025 16:44 Report Date: 05/14/2025 16:51 At the request of: KENDRA MORAN MD Procedure: MR knee LT wo con MR knee LT wo con 05/14/2025 2:08 PM SIGNS AND SYMPTOMS: Internal Knee Derangement, acute left knee pain PROTOCOL: Multiplanar multisequence MR images of the left knee without IV contrast COMPARISON: None. FINDINGS: Fluid: There is a moderate joint effusion. A Alexandre's cyst is present measuring 3.9 x 0.9 x 1.3 cm. Medial compartment: Medial meniscus: Intact. Medial collateral ligament: Intact. Medial femoral condyle cartilage: There is partial thickness chondromalacia with mild subchondral edema. Medial tibial plateau cartilage: There is full-thickness chondromalacia with subchondral edema. Lateral compartment: Lateral meniscus: Intact. Lateral collateral ligament: Intact. Lateral femoral condyle cartilage: There is partial thickness chondromalacia. Lateral tibial plateau cartilage: There is partial thickness chondromalacia. Posterolateral corner: Popliteus tendon: Intact. Popliteofibular ligament: Intact. Proximal tibiofibular joint: Intact. Anterior compartment: Alignment: Normal. Quadriceps tendon: Intact. Patellar tendon: Intact. Retinaculum: Medial intact. Lateral intact. Patellar cartilage: There is full thickness chondromalacia along the lateral articular facet with mild subchondral cystic change. Trochlea: Preserved. . Plica: None. Hoffa fat pad: Normal. Intercondylar compartment: Anterior cruciate ligament: Intact. Posterior cruciate ligament: Intact. Bones (other than subarticular marrow): Normal. Muscles: Normal. Vessels: Normal. Nerves: Normal. 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 Lesser degrees of degenerative changes are noted in the weightbearing and patellofemoral joint spaces as above. There is a moderate joint effusion. A Alexandre's cyst is present measuring 3.9 x 0.9 x 1.3 cm. The knee is otherwise structurally intact. Impression dictated by: Jarocho Parada M.D. 05/14/2025 4:51 PM Dictation Location: [place] [address] Electronically authenticated by: [id number] Y Date: 05/14/2025 16:51
== END 2025-05-14 13:12 | disposition home or self-care (01) ==
LOC: MRI 13:11
PROVIDERS: PCP Family Medicine; Visit Provider Family Medicine
DX: M23.92 Unspecified internal derangement of left knee (principal); M25.462 Effusion, left knee; M71.22 Synovial cyst of popliteal space [Baker], left knee
CPT/HCPCS: 73721

== ENCOUNTER 2025-05-17 22:01 | Emergency (ER) | payer MEDICAID, SELFPAY ==
[2025-05-17] VITALS (13 sets, daily range): BP systolic 150–180; BP diastolic 69–89; PULSE 60–68; TEMP 36.8; O2SAT 95–99; BMI 31.6
--- OUTSIDE RECORDS SUMMARY | 2025-05-17 22:06 | XMS_ITS | CCD ---
Author Organization [facility] CliniSyks Care Team Providers Care Driver Wheelchair Name Role Phone Kendra Moran Primary Care [...] HOY ., DR GARDNER Primary Care Unavailable THURSTON, DR ADELIA Medrano Consulting Unavailable FENG CHRISTIE Attending Unavailable FENG CHRISTIE Referring Unavailable KENDRA MORAN Primary Care Unavailable GAGE NÚÑEZ Admitting Unavailable Kendra Moran MD Primary Care Provider [phone] FARZANA ELY Attending Unavailable HOY, KENDRA M Referring Unavailable HOY, KENDRA M Primary Care Unavailable HOY, KENDRA M Referring Unavailable HOY, KENDRA M Primary Care Unavailable HOY, KENDRA M Referring Unavailable HOY, KENDRA M Primary Care Unavailable HORANI, NONA Referring Unavailable HORANI, NONA Referring Unavailable STEPHEN, SAMAR Attending Unavailable FENG CHRISTIE Attending Unavailable MOUKARBELGOMEZ Attending Unavailable TOFLINSKFEDERICA Butts Referring Unavailable JOSE BETANCUR Referring Unavailable HORANI, NONA Admitting Unavailable TAO NASSAR Attending Unavailable HERMINIA JULIAN Attending Unavailable JODEHFENG Referring Unavailable OMBALLI, RICHA Referring Unavailable OMBALLI, RICHA Referring Unavailable MOUKARBEL, GOMEZ Attending Unavailable FENG CHRISTIE Attending Unavailable MOUKARBEL, GOMEZ Attending Unavailable TOFLINSKI, FEDERICA Referring Unavailable JODEFENG Fowler Attending Unavailable MACMESERET SNELL Referring Unavailable MOUKARBEL, GOMEZ Attending Unavailable JOFENG STARKEY Attending Unavailable JODEHFENG Attending Unavailable OMBALLI, RICHA Attending Unavailable FELECIA CORDOBA Referring Unavailable HOY, KENDRA Referring Unavailable HORANI, NONA Admitting Unavailable HORANI, NONA Attending Unavailable HORANI, NONA Referring Unavailable STEPHEN, BIJAN Attending Unavailable MOUKARBEL, GOMEZ Attending Unavailable OMBALLI, RICHA Attending Unavailable HERMINIA JULIAN Referring Unavailable HORANI, NONA Referring Unavailable Allergies Allergy Classification Reported Allergen(s) Allergy Type Date of Onset Reaction(s) Facility (1 source) No Known Medication Allergies; Translations: [No Known Medication Allergies] Propensity to adverse reactions (disorder) [facility] Repository (4 sources) ALPRAZolam; Translations: [ALPRAZOLAM] Drug Allergy 4 Abnormal Behavior [facility] Repository (5 sources) amLODIPine; Translations: [AMLODIPINE] Drug Allergy 4 Other (See Comments) [facility] Repository (5 sources) Lisinopril; Translations: [LISINOPRIL] Drug Allergy 4 Cough [facility] Repository (1 source) LORazepam Drug Allergy 5 Unknown Reaction [facility] Medications Current Medications Medication Drug [...] Episodic Coronary atherosclerosis and other heart disease (9 sources) Coronary arteriosclerosis; Translations: [Atherosclerotic heart disease of [place] coronary artery without angina pectoris] Onset: 3 [...] Translations: [Acute vaginitis] Onset: 7 10-18-2017 Episodic Other aftercare (1 source) senior care (current) use of aspirin; Translations: [CUSTODIAL CURRENT USE OF ASPIRIN] Onset: 3 Episodic Other aftercare (1 source) Other terminal carman (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 therapy; Translations: [OTH CUSTODIAL CURRENT DRUG THERAPY] Onset: 3 Episodic Other [...] class 2; Translations: [Obesity, class 2] Onset: Results Test Name Value Interpretation Reference Range Facility Office Visiton 05-14-2025 Follow-up visit [id number] Aby Madrigal 1965 F Date Provider Department Center 05/14/2025 GOMEZ KENDALL Family History Problem Relation Age of Onset Lung cancer Mother Accidental Father Lung cancer Sister Family Status - Relation Status Age at Mother Father Sister Brother Alive Level of Service:34112 OK OFFICE/OUTPATIENT ESTABLISHED MOD MDM 30 MIN [facility] 37on 04-23-2025 37 1. Change carvedilol to 1.5 tablets twice daily. 2. Start taking spironolactone half tablet once daily. 3. You can stop clopidogrel in July 2025. [facility] Office Visiton 04-23-2025 Follow-up visit [id number] Aby Madrigal 1965 Date Provider Department Center 04/23/2025 GOEMZ KENDALL RIAZ [place] Family History Problem Relation Age of Onset Lung cancer Mother Accidental Father Lung cancer Sister Family Status - Relation Status Age at Mother Father Sister Brother Alive Level of Service:15794 OK OFFICE/OUTPATIENT ESTABLISHED [facility] 30 MIN [facility] Orders Onlyon 04-20-2025 Orders Only [id number] Aby Madrigal 1965 Date Provider Department Center 04/20/2025 [id number], [facility] RIAZ [place] Family History Problem Relation Age of Onset Lung cancer Mother Accidental Father Lung cancer Sister Family Status - Relation Status Age at Mother Father Sister Brother Alive [facility] 37on 04-10-2025 37 It was good to [...] can see where your potassium levels are. [facility] Follow-Upon 04-10-2025 Follow-Up [id number] Aby Madrigal 1965 Date Provider Department [place] 04/10/2025 [id number] BOWMAN [facility] Family History Problem Relation Age of Onset Lung cancer Mother Accidental Father Lung cancer Sister Family Status - Relation Status Age at Mother Father Sister Brother Alive Level of Service:62875 OK OFFICE/OUTPATIENT ESTABLISHED MOD MDM 30 MIN Reason for Visit and Comments: Adrenal Problem [420] - Follow up [facility] 03-02-2025 29 Addended by: FENG CHRISTIE on: 03/02/2025 09:34 AM Modules accepted: Orders [facility] 03-02-2025 36 Called patient over the phone at 9:10 AM - I have reviewed results from adrenal venous sampling performed on 02/07/2025 at [facility]. 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 Please call patient and let her know that I've requested the test results from [facility] ([facility]) Ill be able to discuss the results with her tomorrow Thank you [facility] 36on 02-26-2025 36 Patient called regarding IR venography she had done 02/07. Requesting to discuss results and how she should follow up per Dr. Christie [facility] Office Visiton 02-26-2025 Follow-up visit [id number] Aby Madrigal 1965 F Date Provider Department Center 02/26/2025 Octavio-GOMEZ SP[facility] Family History Problem Relation Age of Onset Lung cancer Mother Accidental Father Lung cancer Sister Family Status - Relation Status Age at Mother Father Sister Brother Alive Level of Service:06941 OK OFFICE/OUTPATIENT ESTABLISHED LOW MDM 20 MIN [facility] Telephoneon 02-26-2025 Telephone [id number] Aby Madrigal 1965 Date Provider Department Center 02/26/2025 JESSY MATSON [facility] Family History Problem Relation Age of Onset Lung cancer Mother Accidental Father Lung cancer Sister Family Status - Relation Status Age at Mother Father Sister Brother Alive [facility] Cortisol [Mass/Vol]on 2024 CORTISOL 5.2 ug/dL Normal [facility] Comment on above: Result Comment: Due to the diurnal variation of cortisol levels in normal subjects, all cortisol measurements should be referenced to the time of day of sample collection. AM Cortisol Age>=6 6.7-22.4 ug/dL PM Cortisol Age>=6 <10 ug/dL Performed By: #### 2 143-6 #### [facility] ([id number]) [address] [place] [address], [address] [place] [address] CORTISOL 5.2 ug/dL Normal [facility] Comment on above: Result Comment: Due to the diurnal variation of cortisol levels in normal subjects, all cortisol measurements should be referenced to the time of day of sample collection. AM Cortisol Age>=6 6.7-22.4 ug/dL PM Cortisol Age>=6 <10 ug/dL Performed By: #### 2 143-6 #### [facility] ([id number]) [address], [address] [place] [address] CORTISOL 10.9 ug/dL Normal [facility] Comment on above: Result Comment: Due to the diurnal variation of cortisol levels in normal subjects, all cortisol measurements should be referenced to the time of day of sample collection. AM Cortisol Age>=6 6.7-22.4 ug/dL PM Cortisol Age>=6 <10 ug/dL Performed By: #### 2 143-6 #### [facility] ([id number]) [address], [address] [place] [address] CORTISOL 11.1 ug/dL Normal [facility] Comment on above: Result Comment: Due to the diurnal variation of cortisol levels in normal subjects, all cortisol measurements should be referenced to the time of day of sample collection. AM Cortisol Age>=6 6.7-22.4 ug/dL PM Cortisol Age>=6 <10 ug/dL Performed By: #### 2 143-6 #### [facility] ([id number]) [address], [address] [place] [address] CORTISOL 5.7 ug/dL Normal [facility] Comment on above: Result Comment: Due to the diurnal variation of cortisol levels in normal subjects, all cortisol measurements should be referenced to the time of day of sample collection. AM Cortisol Age>=6 6.7-22.4 ug/dL PM Cortisol Age>=6 <10 ug/dL Performed By: #### 2 143-6 #### [facility] ([id number]) [address], [address] [place] [address] CORTISOL 14.3 ug/dL Normal [facility] Comment on above: Result Comment: Due to the diurnal variation of cortisol levels in normal subjects, all cortisol measurements should be referenced to the time of day of sample collection. AM Cortisol Age>=6 6.7-22.4 ug/dL PM Cortisol Age>=6 <10 ug/dL Performed By: #### 2 143-6 #### [facility] ([id number]) [address], [address] [place] [address] [facility] ORDERon 025 TEST NAME AIVC INFERIOR VENA CAVA Normal [facility] Comment on above: Result Comment: Cody ected on 02/07 AT 1204: Previously reported as INFERIOR VENA CAVA TEST RESULT SEE COMMENTS 02/10/2025 12:12 AM Normal [facility] Comment on above: Result Comment: NOTE Test Result Flag Unit RefValue Aldosterone, IVC <4.0 ng/dL Not applicable ADDITIONAL INFORMATION This test was developed and its performance characteristics determined by [facility] in a manner consistent with CLIA requirements. This test has not been cleared or approved by the U.S. Food and Drug Administration. Test Performed by: [facility] [place] [address] Striping Machine Operator: Shawanda Jimenez Ph.D.; CLIA# [id number] Result Comment: NOTE Test Result Flag Unit RefValue Aldosterone, LAV 32 ng/dL Not applicable ADDITIONAL INFORMATION This test was developed and its performance characteristics determined by [facility] in a manner consistent with CLIA requirements. This test has not been cleared or approved by the U.S. Food and Drug Administration. Test Performed by: [facility] [place] [address] Striping Machine Operator: Shawanda Jmienez Ph.D.; CLIA# [id number] Result Comment: NOTE Test Result Flag Unit RefValue Aldosterone, LAV 28 ng/dL Not applicable ADDITIONAL INFORMATION This test was developed and its performance characteristics determined by [facility] in a manner consistent with CLIA requirements. This test has not been cleared or approved by the U.S. Food and Drug Administration. Test Performed by: [facility] [place] [address] Striping Machine Operator: Shawanda Jimenez Ph.D.; CLIA# [id number] Result Comment: NOTE Test Result Flag Unit RefValue Aldosterone, KELLEY <4.0 ng/dL Not applicable ADDITIONAL INFORMATION This test was developed and its performance characteristics determined by [facility] in a manner consistent with CLIA requirements. This test has not been cleared or approved by the U.S. Food and Drug Administration. Test Performed by: [facility] [place] [address] Striping Machine Operator: Shawanda Jimenez Ph.D.; CLIA# [id number] Result Comment: NOTE Test Result Flag Unit RefValue Aldosterone, KELLEY 74 ng/dL Not applicable ADDITIONAL INFORMATION This test was developed and its performance characteristics determined by [facility] in a manner consistent with CLIA requirements. This test has not been cleared or approved by the U.S. Food and Drug Administration. Test Performed by: [facility] [place] [address] Striping Machine Operator: Shawanda Jimenez Ph.D.; CLIA# [id number] TEST NAME ALAV LEFT ADRENAL Normal [facility] TEST NAME ALAV LEFT ADRENAL Normal [facility] TEST NAME ARAV RIGHT ADRENAL Normal [facility] TEST NAME ARAV RIGHT ADRENAL Normal [facility] Telephoneon 01-18-2025 Telephone [id number] Aby Madrigal 1965 F Date Provider Department [place] 01/18/2025 [id number] [facility] Family History Problem Relation Age of Onset Lung cancer Mother Accidental Father Lung cancer Sister Family Status - Relation Status Age at Mother Father Sister Brother Alive [facility] Follow-Upon 01-09-2025 Follow-Up [id number] Aby Madrigal 1965 F Date Provider Department [place] 01/09/2025 [id number] BOWMAN [facility] Family History Problem Relation Age of Onset Lung cancer Mother No Known Problems Father Lung cancer Sister Family Status - Relation Status Age at Mother Father Sister Level of Service:63425 OK OFFICE/OUTPATIENT ESTABLISHED LOW MDM 20 MIN [facility] 36on 01-04-2025 36 Called patient's daughter at [...] time. Melanie thanked me for the call [facility] 36on 01-03-2025 36 Voicemail. Patient's daughter called in, she thought Dr. Christie was going to order testing where they go in through the groin to see which kidney is dumping off excess hormones, she would like a call back. [facility] Telephoneon 01-03-2025 Telephone [id number] Aby Madrigal 1965 F Date Provider Department [place] 01/03/2025 [id number] BOWMAN [facility] Family History Problem Relation Age of Onset Lung cancer Mother No Known Problems Father Lung cancer Sister Family Status - Relation Status Age at Mother Father Sister [facility] ALDOSTERONEon 01-02-2025 ALDOSTERONE (NG/DL) IN SER/PLAS 7.3 ng/dL [facility] Comment on above: Result Comment: [...] reference intervals for this test in the [facility] ([facility]). Performed By: [facility] [address] [place] [address] Roof Bolter Helper: Navneet Simeon MD, PhD CLIA Number: [id number] Performed By: #### L [id number] #### [facility] (BEAKER) [address] [place] [address] ALDOSTERONE (NG/DL) IN SER/PLAS 14.2 ng/dL Normal [facility] Comment on above: Result Comment: INTE RPRETIVE [...] reference intervals for this test in the [facility] ([facility]). Performed By: [facility] [address] [place] [address] Roof Bolter Helper: Navneet Simeon MD, PhD CLIA Number: [id number] Performed By: #### L [id number] #### [facility] (BEAKER) [address] [place] [address] CORTISOLon 01-02-2025 CORTISOL (UG/DL) IN SER/PLAS 3.6 ug/dL Normal 0-9 [facility] Comment on above: Performed By: #### L AB325 #### [facility] (BANNER) [address] [facility] [place] [address] CORTISOL (UG/DL) IN SER/PLAS 9.0 ug/dL Normal 6-23 [facility] Comment on above: Performed By: #### L AB320 #### [facility] ([facility]) [address] [facility] [place] [address] NURSNOTEon 01-02-2025 NURSNOTE T-3=1903, at this ti me VS taken, IV [...] pt up to BR and released. Normal [facility] POTASSIUMon 01-02-2025 Potassium [Moles/Vol] 3.9 mmol/L Normal 3.5-5.1 [facility] Comment on above: Performed By: #### L AB114 ####[facility] ([facility]ANNER)[address] [place] [address] Potassium [Moles/Vol] 4.0 mmol/L Normal 3.5-5.1 [facility] Comment on above: Performed By: #### L AB320 #### [facility] ([facility]) [address] [place] [address] RENIN ACTIVITYon 01-02-2025 RENIN ACTIVITY <0.1 Normal [facility] Comment on above: Result Comment: INTE RPRETIVE [...] developed and its performance characteristics determined by [facility]. It has not been cleared or approved by the US Food and Drug Administration. This test was performed in a CLIA certified laboratory and is intended for clinical purposes. Performed By: [facility] [address] [place] [address] Roof Bolter Helper: Navneet Simeon MD, PhD CLIA Number: [id number] Performed By: #### L AB325 #### [facility] (BEAKER) [address] [place] [address] RENIN ACTIVITY <0.1 Normal [facility] Comment on above: Result Comment: INTE RPRETIVE [...] developed and its performance characteristics determined by [facility]. It has not been cleared or approved by the US Food and Drug Administration. This test was performed in a CLIA certified laboratory and is intended for clinical purposes. Performed By: [facility] [address] [place] [address] Roof Bolter Helper: Navneet Simeon MD, PhD CLIA Number: [id number] Performed By: #### L [id number] #### [facility] (FARAZ) [address] [place] [address] Orders Onlyon 01-01-2025 Orders Only [id number] Strausbaugh,Aby S 1965 F Date Provider Department Center 01/01/[id number] [facility] 2A Second Fl Family History Problem Relation Age of Onset Lung cancer Mother No Known Problems Father Lung cancer Sister Family Status - Relation Status Age at Mother Father Sister Normal [facility] Orders Only [id number] Strausbaugh,Aby S 1965 F Date Provider Department Center 01/01/2025 [id number] GARCIA [facility] 2A Second Fl Family History Problem Relation Age of Onset Lung cancer Mother No Known Problems Father Lung cancer Sister Family Status - Relation Status Age at Mother Father Sister Normal [facility] Orders Onlyon 12-26-2024 Orders Only [id number] Strausbaugh,Aby S 1965 F Date Provider Department Center 12/26/[id number] [facility] 2A Second Fl Family History Problem Relation Age of Onset Lung cancer Mother No Known Problems Father Lung cancer Sister Family Status - Relation Status Age at Mother Father Sister Normal [facility] Orders Only [id number] Strausbaugh,Aby S 1965 F Date Provider Department Center 12/26/[id number] [facility] 2A Second Fl Family History Problem Relation Age of Onset Lung cancer Mother No Known Problems Father Lung cancer Sister Family Status - Relation Status Age at Mother Father Sister Normal [facility] Orders Only [id number] Strausbaugh,Aby S 1965 F Date Provider Department Center 12/26/2024 [id number]-USHA DURON [facility] 2A Second Fl Family History Problem Relation Age of Onset Lung cancer Mother No Known Problems Father Lung cancer Sister Family Status - Relation Status Age at Mother Father Sister Normal [facility] 36on 12-25-2024 36 Patient has not hear d from the [facility] about scheduling this, she is going to reach out to them directly, but could someone reach out to the [facility] about what's going on? [facility] Orders Onlyon 12-25-2024 Orders Only [id number] Aby Madrigal S 1965 F Date Provider Department Center 12/25/2024 [id number]-GIBSON GARCIA [facility] 2A Second Fl Family History Problem Relation Age of Onset Lung cancer Mother No Known Problems Father Lung cancer Sister Family Status - Relation Status Age at Mother Father Sister Normal [facility] Orders Only [id number] Sanjana Madrigalty S 1965 F Date Provider Department Center 12/25/2024 Rupert-JOSE PRICE INF DCC Family History Problem Relation Age of Onset Lung cancer Mother No Known Problems Father Lung cancer Sister Family Status - Relation Status Age at Mother Father Sister [facility] 36on 12-12-2024 36 Antonio I signed the orders for saline infusion test back on Oct 12 (its a Therapy Plan) Can we call the [facility] and ask what more do they need to get the patient scheduled thanks [facility] 36on 12-08-2024 36 Patient had not hear d from the [facility] about scheduling a Saline Infusion Test, when I look into the chart, I cannot find any orders [facility] Telephoneon 12-08-2024 Telephone [id number] Aby Madrigal S 1965 F Date Provider Department Center 12/08/2024 [id number] BOWMAN [facility] Family History Problem Relation Age of Onset Lung cancer Mother No Known Problems Father Lung cancer Sister Family Status - Relation Status Age at Mother Father Sister Normal [facility] Abstracton 11-21-2024 Abstract [id number] Sanjana Madrigalty S 1965 F Date Provider Department Center 11/21/[id number]-[id number]-SGPDARA CARTER ONC DCC Family History Problem Relation Age of Onset Lung cancer Mother No Known Problems Father Lung cancer Sister Family Status - Relation Status Age at Mother Father Sister Normal [facility] CT CHEST WO IV CONTRASTon CT CHEST [...] Marlon Green MD. 5 Invalid Interpretation Code [facility] Office Visiton 10-26-2024 Follow-up visit [id number] Aby Madrigal Cristina 1965 F Date Provider Department Center 10/26/2024 RICHA MERINO [facility] ONC DCC Family History Problem Relation Age of Onset Lung cancer Mother No Known Problems Father Lung cancer Sister Family Status - Relation Status Age at Mother Father Sister Level of Service:14256 OK OFFICE/OUTPATIENT ESTABLISHED SF MDM 10 MIN (GC) Reason for Visit and Comments: Follow-up [158127] - F/U to review CT scan that was done today. [facility] 29on 10-03-2024 29 Addended by: FENG CHRISTIE on: 10/12/2024 10:02 AM Modules accepted: Orders Normal [facility] 37on 10-03-2024 37 It was good to see y ou again Your recent CAT scan is reassuring showing me that your left adrenal mass has actually shrunk in size we no longer need to monitor this at all with any repeat CAT scans. To confirm if you have primary aldosteronism were going to do something called a saline infusion test at the [facility] they will be in contact with you likely within the next week. This is a 2-hour test in which we infused saline 2 L and assess any changes in your aldosterone level. This is in a monitored setting so you will not be alone. Normal [facility] Follow-Upon 10-03-2024 Follow-Up [id number] Aby Madrigal 1965 F Date Provider Department Center 10/03/2024 [id number], WADE [facility] Family History Problem Relation Age of Onset Lung cancer Mother No Known Problems Father Lung cancer Sister Family Status - Relation Status Age at Mother Father Sister Level of Service:75806 OK OFFICE/OUTPATIENT ESTABLISHED MOD MDM 30 MIN Reason for Visit and Comments: Follow-up [[id number]] Normal [facility] Office Visiton 09-04-2024 Follow-up visit [id number] Aby Madrigal 1965 F Date Provider Department Center 09/04/2024 GOMEZ KENDALL RIAZ Barba [facility] Family History Problem Relation Age of Onset Lung cancer Mother No Known Problems Father Lung cancer Sister Family Status - Relation Status Age at Mother Father Sister Level of Service:89351 [place] OFFICE/OUTPATIENT ESTABLISHED MOD MDM 30 MIN Normal [facility] ALDOSTERONEon 08-29-2024 ALDOSTERONE (NG/DL) IN SER/PLAS 13.0 ng/dL Normal [facility] Comment on above: Result Comment: INTE RPRETIVE [...] reference intervals for this test in the [facility] ([facility]). Performed By: [facility] [address] [place] [address] Roof Bolter Helper: Navneet Simeon MD, PhD CLIA Number: [id number] Performed By: #### L [id number] #### [facility] (BEAKER) [address] [place] [address] Ron 08-29-2024 ALT [Catalytic activity/Vol] 25 U/L Normal 7-52 [facility] Comment on above: Performed By: #### L [id number] ####[facility] ([facility] [place] [address] Riki 08-29-2024 AST [Catalytic activity/Vol] 21 U/L Normal 13-39 [facility] Comment on above: Performed By: #### L [id number] #### [facility] (BEAKER) [address] [place] [address] BASIC METABOLIC PANELon 10-0 Anion gap [Moles/Vol] 12 mmol/L Normal 7-20 [facility] Comment on above: Performed By: #### L [id number] ####[facility] (BEAKER)[address] [place] [address] Calcium [Mass/Vol] 9.3 mg/dL Normal 8.6-10.3 [facility] Comment on above: Performed By: #### L [id number] ####[facility] (BEAKER)[address] [place] [address] Chloride [Moles/Vol] 105 mmol/L Normal 98-107 [facility] Comment on above: Performed By: #### L [id number] ####[facility] (BEAKER)[address] [place] [address] CO2 [Moles/Vol] 28 mmol/L Normal 21-31 [facility] Comment on above: Performed By: #### L [id number] ####[facility] (BEAKER)[address] [place] [address] Creatinine [Mass/Vol] 0.95 mg/dL Normal 0.60-1.20 [facility] Comment on above: Performed By: #### L [id number] ####[facility] ([facility])[address] [place] [address] GLOMERULAR FILTRATION RATE ML/MIN/1.73 SQ M.PREDICTED 68.6 mL/min/1.73m*2 Normal >60.0 [facility] Comment on above: Result Comment: The [facility]???s estimated glomerular filtration rate (eGFR) will no [...] #### L [id number] ####[facility] ([facility])[address] [place] [address] Glucose [Mass/Vol] 99 mg/dL Normal 70-100 [facility] Comment on above: Performed By: #### L [id number] ####[facility] ([facility])[address] [place] [address] Potassium [Moles/Vol] 3.6 mmol/L Normal 3.5-5.1 [facility] Comment on above: Performed By: #### L [id number] ####[facility] ([facility])[address] [place] [address] Sodium [Moles/Vol] 141 mmol/L Normal 136-145 [facility] Comment on above: Performed By: #### L [id number] ####[facility] ([facility])[address] [place] [address] Urea nitrogen [Mass/Vol] 19 mg/dL Normal 7-25 [facility] Comment on above: Performed By: #### L [id number] ####[facility] (BEAKER)[address] [place] [address] UREA NITROGEN/CREATININE (MASS RATIO) IN SER/PLAS 20.0 Normal [facility] Comment on above: Performed By: #### L [id number] ####[facility] ([facility])[address] [place] [address] CORTISOLon 08-29-2024 CORTISOL (UG/DL) IN SER/PLAS 6.1 ug/dL Normal 0-9 [facility] Comment on above: Performed By: #### L [id number] #### [facility] (BEAKER) [address] [place] [address] CT ABDOMEN PELVIS W AND WO I [...] Marybeth Bryan. [address] Invalid Interpretation Code [facility] DEXAMETHASONE LEVELon 2023 DEXAMETHASONE <50.0 Normal [facility] Comment on above: Order Comment: Blood test [...] developed and its performance characteristics determined by [facility]. It has not been cleared or approved by the [place] Food and Drug Administration. This test was performed in a CLIA certified laboratory and is intended for clinical purposes. Performed By: [employer] [address] [place] [address] Roof Bolter Helper: Navneet Simeon MD, PhD CLIA Number: [id number] Performed By: #### L [id number] #### [facility] ([facility]) [address] [place] [address] LIPID PANELon 08-29-2024 CHOL/HDL 2.4 mg/dL Normal [facility] Comment on above: Performed By: #### L [id number] #### [facility] ([facility]) [address] [place] [address] Cholesterol [Mass/Vol] 80 mg/dL Low 120-200 [facility] Comment on above: Performed By: #### L [id number] #### [facility] ([facility]) [address] [place] [address] Magnesium [Mass/Vol] 96 mg/dL Normal 40-149 [facility] Comment on above: Result Comment: TRIG LYCERIDE REFERENCE RANGE: 20 YEARS AND OLDER CARDIOVASCULAR RISK LESS THAN 150 mg/dL LOW RISK 150 TO 199 mg/dL BORDERLINE RISK 200 mg/dL AND GREATER HIGH RISK Performed By: #### L [id number] #### [facility] (BEAKER) [address] [place] [address] Magnesium [Mass/Vol] 28 mg/dL Normal 0-160 [facility] Comment on above: Performed By: #### L [id number] #### [facility] (BEAKER) [address] [place] [address] Magnesium [Mass/Vol] 33 mg/dL Normal 23-92 [facility] Comment on above: Performed By: #### L [id number] #### [facility] (BEAKER) [address] [facility] [place] [address] NON HDL CHOL. (LDL+VLDL) 47 Normal [facility] Comment on above: Performed By: #### L [id number] #### [facility] (BEAKER) [address] [place] [address] TOTAL VLDL-C 19 mg/dL Normal 0-40 [facility] Comment on above: Performed By: #### L [id number] #### [facility] (BEAKER) [address] [facility] [place] [address] Labon 08-29-2024 Lab [id number] Aby Madrigal 1965 F Date Provider Department Center 08/29/2024 2[address]-[facility] OPD LAB RESOURCE [facility] OPD [facility] Family History Problem Relation Age of Onset Lung cancer Mother No Known Problems Father Lung cancer Sister Family Status - Relation Status Age at Mother Father Sister Normal [facility] RENIN ACTIVITYon 08-29-2024 RENIN ACTIVITY <0.1 Normal [facility] Comment on above: Result Comment: INTE RPRETIVE INFORMATION: Renin Activity Adult, Normal sodium diet: Supine ................. 0.2-1.6 ng/mL/hr Upright ................ 0.5-4.0 ng/mL/hr Children, Normal sodium diet, Supine: [place] (1-7 days) ..... 2.0-35.0 ng/mL/hr Cord blood [...] developed and its performance characteristics determined by [facility]. It has not been cleared or approved by the US Food and Drug Administration. This test was performed in a CLIA certified laboratory and is intended for clinical purposes. Performed By: [facility] [address] [place] [address] Roof Bolter Helper: Navneet Simeon MD, PhD CLIA Number: [id number] Performed By: #### L [id number] #### [facility] (BEAKER) [address] [place] [address] 36on 08-10-2024 36 Updated patient on Nodify blood test results and plan for f/u CT and appt scheduled for 10/26/24. Normal [facility] Letter (Out)on 08-09-2024 Letter (Out) [id number] Aby Madrigal 1965 F Date Provider Department Center 08/09/2024 None-None [facility] ADMIT None Family History Problem Relation Age of Onset Lung cancer Mother No Known Problems Father Lung cancer Sister Family Status - Relation Status Age at Mother Father Sister [facility] 36on 08-08-2024 36 Called patient over the [...] 03 She thanked me for the call [facility] Orders Onlyon 08-08-2024 Orders Only [id number] Rohan,Aby S 1965 F Date Provider Department Center 08/08/2024 RICHA MERINO ONC NICKI Family History Problem Relation Age of Onset Lung cancer Mother No Known Problems Father Lung cancer Sister Family Status - Relation Status Age at Mother Father Sister Normal [facility] Telephoneon 08-08-2024 Telephone [id number] Emmababebe,Aby S 1965 F Date Provider Department Center 08/08/2024 [id number], [facility] Family History Problem Relation Age of Onset Lung cancer Mother No Known Problems Father Lung cancer Sister Family Status - Relation Status Age at Mother Father Sister [facility] Telemedicineon 07-20-2024 Telemedicine [id number] Emmababebe,Aby S 1965 F Date Provider Department Center 07/20/2024 RICHA MERINO ONC NICKI Family History Problem Relation Age of Onset Lung cancer Mother No Known Problems Father Lung cancer Sister Family Status - Relation Status Age at Mother Father Sister Level of Service:29564 [place] PHYS/QHP TELEPHONE EVALUATION 21-30 MIN (GC) Reason for Visit and Comments: 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 CT CHEST 04-21-24- PET 06-21-24 Films requested 07-18-24 HAVING HARD TIME GETTING FILMS FROM [facility] AGAIN. Ginny at [facility] ([phone] direct line) is working on sending them. CHECK [facility] FOR FILMS PLEASE [facility] 37on 07-18-2024 37 It was great to meet you today, I am very sorry you have to go to the emergency room this morning. For now please stop the Lasix please stop the clonidine. Follow-up with cardiology on October 15, call them ahead of time to try [...] lab work done at one of these [facility] Lab Sites The results will then come straight to me I appreciate it [facility] [address], [place] Hours Wednesday - Wednesday 8 AM - 4PM (Closed 12 - 12:30 PM daily) Phone: [facility] [address] Hours: Wednesday - Wednesday 6 AM - 5 PM Saturday: 7 AM - 2 PM Phone: [address] [place] Hours: Wednesday - Wednesday 7 AM - 3:30 PM Phone: [facility] [address] Hours: Wednesday - Wednesday 7 AM - 5:30 PM Phone: [facility] [address] [place] Hours: Wednesday 8 AM - 4:30 PM Phone: [facility] EDNURSon 07-18-2024 EDNHOME ADR and relevant inf o reported to [facility] in pharmacy d/t safety net being down. Viet Kelly RN 07/18/24 2981 [facility] EDNURS SENT FROM MD OFFICE RE: LOW BP; RECENT DC FROM [facility] FOR SAME Normal [facility] EDPROVon 07-18-2024 EDPROV HPI Chief Complaint Patient [...] new meds yesterday. History provided by: Patient supervisor pleating used: No Musa Coma Scale Score: 15 [...] side effect Medical Decision Making I, Basilia Kelvinedgar senior, documented on behalf of Dr. Julian. [...] mouth i (more content not included)... Normal [facility] Office Visiton 07-18-2024 Follow-up visit [id number] Aby Madrigal 1965 Date Provider Department Center 07/18/2024 [id number] [facility] Family History Problem Relation Age of Onset Lung cancer Mother No Known Problems Father Lung cancer Sister Family Status - Relation Status Age at Mother Father Sister Level of Service:17384 [place] OFFICE/OUTPATIENT NEW MODERATE MDM 45 MINUTES Reason for Visit and Comments: Nodules [Other] Normal [facility] Follow-up visit [id number] Aby Madrigal 1965 Date Provider Department Center 07/18/2024 [id number] [facility] Family History Problem Relation Age of Onset Lung cancer Mother No Known Problems Father Lung cancer Sister Family Status - Relation Status Age at Mother Father Sister Level of Service: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 I am calling you to [...] No Patient Name Aby Madrigal Date 07/13/24 [facility] Telephoneon 07-13-2024 Telephone [id number] Aby Madrigal 1965 F Date Provider Department Center 07/13/2024 GINNY MALONEY [facility] Family History Problem Relation Age of Onset Lung cancer Mother No Known Problems Father Lung cancer Sister Family Status - Relation Status Age at Mother Father Sister Reason for Visit and Comments: Hospital Follow-up [832] Normal [facility] 30on 07-12-2024 30 The patient is Moderately [...] to address these barriers include . Normal [facility] ANTI-XA (HEPARIN LEVEL)on HEPARIN UNFRACTIONATED (U/ML) IN PPP BY CHROMOGENIC METHOD 0.60 IU/mL Normal 0.3-0.7 [facility] Comment on above: Order Comment: Check anti-Xa level every 6 hours while on heparin infusion, or per protocol. Result Comment: [facility] roxaban and Apixaban will interfere with the anti Xa assay used to monitor UFH and LMWH. Performed By: #### L [id number] ####[facility] ([facility])[address] [place] [address] BASIC METABOLIC PANELon 06-23 Anion gap [Moles/Vol] 10 mmol/L Normal 7-20 [facility] Comment on above: Performed By: #### L [id number] #### [facility] ([facility]) [address] [place] [address] Calcium [Mass/Vol] 8.8 mg/dL Normal 8.6-10.3 [facility] Comment on above: Performed By: #### L [id number] #### [facility] ([facility]) [address] [place] [address] Chloride [Moles/Vol] 108 mmol/L High 98-107 [facility] Comment on above: Performed By: #### L [id number] #### [facility] ([facility]) [address] [place] [address] CO2 [Moles/Vol] 27 mmol/L Normal 21-31 [facility] Comment on above: Performed By: #### L [id number] #### [facility] ([facility]) [address] [place] [address] Creatinine [Mass/Vol] 0.89 mg/dL Normal 0.60-1.20 [facility] Comment on above: Performed By: #### L [id number] #### [facility] ([facility]) [address] [place] [address] GLOMERULAR FILTRATION RATE ML/MIN/1.73 SQ M.PREDICTED 74.2 mL/min/1.73m*2 Normal >60.0 [facility] Comment on above: Result Comment: The [facility]???s estimated glomerular filtration rate (eGFR) will no [...] group of individuals. Performed By: #### L [id number] #### [facility] ([facility]) [address] [place] [address] Glucose [Mass/Vol] 109 mg/dL High 70-100 [facility] Comment on above: Performed By: #### L [id number] #### [facility] ([facility]) [address] [place] [address] Potassium [Moles/Vol] 3.4 mmol/L Low 3.5-5.1 [facility] Comment on above: Performed By: #### L [id number] #### [facility] ([facility]) [address] [place] [address] Sodium [Moles/Vol] 142 mmol/L Normal 136-145 [facility] Comment on above: Performed By: #### L [id number] #### [facility] ([facility]) [address] [place] [address] Urea nitrogen [Mass/Vol] 11 mg/dL Normal 7-25 [facility] Comment on above: Performed By: #### L [id number] #### [facility] ([facility]) [address] [place] [address] UREA NITROGEN/CREATININE (MASS RATIO) IN SER/PLAS 12.4 Normal [facility] Comment on above: Performed By: #### L [id number] #### [facility] ([facility]) [address] [place] [address] CBC WITH AUTO DIFFERENTIALon 07-12-2024 Basophils (Bld) [#/Vol] 0.04 10*3/uL Normal 0.00-0.20 [facility] Comment on above: Performed By: #### L [id number] #### [facility] (BEAKER) [address] [place] [address] Basophils/100 WBC (Bld) 0.6 % Normal 0.0-1.0 [facility] Comment on above: Performed By: #### L [id number] #### [facility] ([facility] [address] [place] [address] Eosinophils (Bld) [#/Vol] 0.22 10*3/uL Normal 0.00-0.50 [facility] Comment on above: Performed By: #### L [id number] #### [facility] ([facility] [address] [place] [address] Eosinophils/100 WBC (Bld) 3.5 % Normal 0.0-6.0 [facility] Comment on above: Performed By: #### L [id number] #### [facility] ([facility]) [address] [place] [address] Erythrocyte distribution width (RBC) [Ratio] 14.5 % Normal 11.5-15.0 [facility] Comment on above: Performed By: #### L [id number] #### [facility] ([facility] [address] [place] [address] ERYTHROCYTE MEAN CORPUSCULAR HEMOGLOBIN CONCENTRATION (G/DL) BY AUTOMATED 32.7 g/dL Normal 32.0-35.0 [facility] Comment on above: Performed By: #### L [id number] #### [facility] (BEAKER) [address] [place] [address] Hematocrit (Bld) [Volume fraction] 34.2 % Low 36.0-48.0 [facility] Comment on above: Performed By: #### L [id number] #### [facility] (BEAKER) [address] [place] [address] Hemoglobin (Bld) [Mass/Vol] 11.2 g/dL Low 12.0-15.0 [facility] Comment on above: Performed By: #### L [id number] #### [facility] (BE[facility]ER) [address] [place] [address] Immature granulocytes (Bld) [#/Vol] 0.01 10*3/uL Normal 0.00-0.20 [facility] Comment on above: Performed By: #### L [id number] #### [facility] ([facility]) [address] [place] [address] Immature granulocytes/100 WBC (Bld) 0.2 % Normal 0.0-1.0 [facility] Comment on above: Performed By: #### L [id number] #### [facility] ([facility]) [address] [place] [address] Lymphocytes (Bld) [#/Vol] 2.37 10*3/uL Normal 1.20-4.00 [facility] Comment on above: Performed By: #### L [id number] #### [facility] ([facility]) [address] [place] [address] Lymphocytes/100 WBC (Bld) 37.8 % Normal 20.0-45.0 [facility] Comment on above: Performed By: #### L [id number] #### [facility] ([facility] [address] [place] [address] MCH (RBC) [Entitic mass] 27.4 pg Normal 27.0-33.0 [facility] Comment on above: Performed By: #### L [id number] #### [facility] ([facility] [address] [place] [address] MCV (RBC) [Entitic vol] 83.6 fL Normal 82.0-98.0 [facility] Comment on above: Performed By: #### L [id number] #### [facility] (BEAKER) [address] [place] [address] Monocytes (Bld) [#/Vol] 0.43 10*3/uL Normal 0.10-1.00 [facility] Comment on above: Performed By: #### L [id number] #### [facility] ([facility]) [address] [place] [address] Monocytes/100 WBC (Bld) 6.9 % Normal 5.0-12.0 [facility] Comment on above: Performed By: #### L [id number] #### [facility] ([facility]) [address] [place] [address] Neutrophils (Bld) [#/Vol] 3.20 10*3/uL Normal 1.60-7.60 [facility] Comment on above: Performed By: #### L [id number] #### [facility] ([facility]) [address] [place] [address] Neutrophils/100 WBC (Bld) 51.0 % Normal 40.0-72.0 [facility] Comment on above: Performed By: #### L [id number] #### [facility] ([facility]) [address] [place] [address] NRBC (PER 100 WBCS) BY AUTOMATED COUNT 0.0 % Normal 0 [facility] Comment on above: Performed By: #### L [id number] #### [facility] ([facility]) [address] [place] [address] PLATELETS (10*3/UL) IN BLOOD AUTOMATED COUNT 223 10*3/uL Normal 150-400 [facility] Comment on above: Performed By: #### L [id number] #### [facility] ([facility]) [address] [place] [address] RBC (Bld) [#/Vol] 4.09 10*6/uL Normal 3.80-5.00 [facility] Comment on above: Performed By: #### L [id number] #### [facility] ([facility]) [address] [place] [address] WBC (Bld) [#/Vol] 6.27 10*3/uL Normal 4.00-10.60 [facility] Comment on above: Performed By: #### L [id number] #### [facility] ([facility]) [address] [facility] [place] [address] MAGNESIUMon 07-12-2024 Magnesium [Mass/Vol] 1.7 mg/dL Low 1.9-2.7 [facility] Comment on above: Performed By: #### L [id number] #### [facility] ([facility]) [address] [facility] [place] [address] POCT GLUCOSE METER UNSOLICIT ED RESULTSon 07-12-2024 Glucose [Mass/Vol] 102 mg/dL Normal 70-105 [facility] Comment on above: Order Comment: Waive d Testing in the ED is performed under the ED CLIA certificate #[id number]. Result Comment: brad [email or web address] Performed By: #### L [id number] #### [facility] ([facility]) [address] [facility] [place] [address] TROPONIN Ion 07-12-2024 Troponin I.cardiac [Mass/Vol] 0.01 ng/mL Normal 0.00-0.04 [facility] Comment on above: Performed By: #### L [id number] #### [facility] ([facility]) [address] [facility] [place] [address] 30on 07-11-2024 30 The patient is Moderately [...] and maintained or improved Outcome: Progressing Normal [facility] 30 The patient is Moderately Stable - Low risk of patient condition declining or worsening The patient's goals for the shift include no chest pain The clinical goals for the shift include stable vital/no chest pain Over the shift, the patient did not make progress toward the following goals. Barriers to progression include . Recommendations to address these barriers include . Normal [facility] ALDOSTERONEon 07-11-2024 ALDOSTERONE (NG/DL) IN SER/PLAS 4.9 ng/dL Normal [facility] Comment on above: Result Comment: INTE RPRETIVE [...] reference intervals for this test in the [facility] ([facility]). Performed By: [facility] [address] [place] [address] Roof Bolter Helper: Navneet Simeon MD, PhD CLIA Number: [id number] Performed By: #### L [id number] ####[facility] (BEAKER)[address] [place] [address] ANTI-XA (HEPARIN LEVEL)on HEPARIN UNFRACTIONATED (U/ML) IN PPP BY CHROMOGENIC METHOD 0.42 IU/mL Normal 0.3-0.7 [facility] Comment on above: Order Comment: Waive d Testing in the ED is performed under the ED CLIA certificate #[id number]. Result Comment: [facility] roxaban and Apixaban will interfere with the anti Xa assay used to monitor UFH and LMWH. Performed By: #### L [id number] #### [facility] (BEAKER) [address] [place] [address] HEPARIN UNFRACTIONATED (U/ML) IN PPP BY CHROMOGENIC METHOD 0.20 IU/mL Low 0.3-0.7 [facility] Comment on above: Order Comment: Check anti-Xa level every 6 hours while on heparin infusion, or per protocol. Result Comment: [facility] roxaban and Apixaban will interfere with the anti Xa assay used to monitor UFH and LMWH. Performed By: #### L [id number] #### [facility] ([facility] [address] [place] [address] APTTon 07-11-2023 ACTIVATED PARTIAL THROMBOPLASTIN TIME IN PPP BY COAGULATION ASSAY 43.0 Seconds High 25.0-35.0 [facility] Comment on above: Result Comment: Clin ical significance of the APTT is questionable in the presence of heparin. Performed By: #### L [id number] #### [facility] ([facility]) [address] [place] [address] BASIC METABOLIC PANELon 06-23 Anion gap [Moles/Vol] 9 mmol/L Normal 7-20 [facility] Comment on above: Performed By: #### L [id number] #### [facility] ([facility]) [address] [place] [address] Calcium [Mass/Vol] 8.8 mg/dL Normal 8.6-10.3 [facility] Comment on above: Performed By: #### L [id number] #### [facility] ([facility]) [address] [place] [address] Chloride [Moles/Vol] 108 mmol/L High 98-107 [facility] Comment on above: Performed By: #### L [id number] #### [facility] ([facility]) [address] [place] [address] CO2 [Moles/Vol] 28 mmol/L Normal 21-31 [facility] Comment on above: Performed By: #### L [id number] #### [facility] [address] [place] [address] Creatinine [Mass/Vol] 1.09 mg/dL Normal 0.60-1.20 [facility] Comment on above: Performed By: #### L [id number] #### [facility] ([facility]) [address] [place] [address] GLOMERULAR FILTRATION RATE ML/MIN/1.73 SQ M.PREDICTED 58.2 mL/min/1.73m*2 Low >60.0 [facility] Comment on above: Result Comment: The [facility]???s estimated glomerular filtration rate (eGFR) will no [...] L [id number] #### [facility] ([facility]) [address] [place] [address] Glucose [Mass/Vol] 113 mg/dL High 70-100 [facility] Comment on above: Performed By: #### L [id number] #### [facility] ([facility]) [address] [place] [address] Potassium [Moles/Vol] 3.4 mmol/L Low 3.5-5.1 [facility] Comment on above: Performed By: #### L [id number] #### [facility] ([facility]) [address] [place] [address] Sodium [Moles/Vol] 142 mmol/L Normal 136-145 [facility] Comment on above: Performed By: #### L [id number] #### [facility] ([facility]) [address] [place] [address] Urea nitrogen [Mass/Vol] 14 mg/dL Normal 7-25 [facility] Comment on above: Performed By: #### L [id number] #### [facility] ([facility]) [address] [place] [address] UREA NITROGEN/CREATININE (MASS RATIO) IN SER/PLAS 12.8 Normal [facility] Comment on above: Performed By: #### L [id number] #### [facility] ([facility]) [address] [place] [address] CBC WITH AUTO DIFFERENTIALon 07-11-2024 Basophils (Bld) [#/Vol] 0.04 10*3/uL Normal 0.00-0.20 [facility] Comment on above: Performed By: #### L [id number] ####[facility] ([facility])[address] [place] [address] Basophils/100 WBC (Bld) 0.6 % Normal 0.0-1.0 [facility] Comment on above: Performed By: #### L [id number] ####[facility] ([facility])[address] [place] [address] Eosinophils (Bld) [#/Vol] 0.16 10*3/uL Normal 0.00-0.50 [facility] Comment on above: Performed By: #### L [id number] ####[facility] ([facility])[address] [place] [address] Eosinophils/100 WBC (Bld) 2.2 % Normal 0.0-6.0 [facility] Comment on above: Performed By: #### L [id number] ####[facility] ([facility])[address] [place] [address] Erythrocyte distribution width (RBC) [Ratio] 14.6 % Normal 11.5-15.0 [facility] Comment on above: Performed By: #### L [id number] ####[facility] ([facility])[address] [place] [address] ERYTHROCYTE MEAN CORPUSCULAR HEMOGLOBIN CONCENTRATION (G/DL) BY AUTOMATED 32.0 g/dL Normal 32.0-35.0 [facility] Comment on above: Performed By: #### L [id number] ####[facility] ([facility])[address] [place] [address] Hematocrit (Bld) [Volume fraction] 36.2 % Normal 36.0-48.0 [facility] Comment on above: Performed By: #### L [id number] ####[facility] ([facility])[address] [place] [address] Hemoglobin (Bld) [Mass/Vol] 11.6 g/dL Low 12.0-15.0 [facility] Comment on above: Performed By: #### L [id number] ####[facility] ([facility])[address] [place] [address] Immature granulocytes (Bld) [#/Vol] 0.02 10*3/uL Normal 0.00-0.20 [facility] Comment on above: Performed By: #### L [id number] ####[facility] ([facility])[address] [place] [address] Immature granulocytes/100 WBC (Bld) 0.3 % Normal 0.0-1.0 [facility] Comment on above: Performed By: #### L [id number] ####[facility] ([facility])[address] [place] [address] Lymphocytes (Bld) [#/Vol] 2.34 10*3/uL Normal 1.20-4.00 [facility] Comment on above: Performed By: #### L [id number] ####[facility] ([facility])[address] [place] [address] Lymphocytes/100 WBC (Bld) 32.6 % Normal 20.0-45.0 [facility] Comment on above: Performed By: #### L [id number] ####[facility] ([facility])[address] [place] [address] MCH (RBC) [Entitic mass] 27.2 pg Normal 27.0-33.0 [facility] Comment on above: Performed By: #### L [id number] ####[facility] ([facility])[address] [place] [address] MCV (RBC) [Entitic vol] 85.0 fL Normal 82.0-98.0 [facility] Comment on above: Performed By: #### L [id number] ####[facility] ([facility])[address] [place] [address] Monocytes (Bld) [#/Vol] 0.49 10*3/uL Normal 0.10-1.00 [facility] Comment on above: Performed By: #### L [id number] ####[facility] ([facility])[address] [place] [address] Monocytes/100 WBC (Bld) 6.8 % Normal 5.0-12.0 [facility] Comment on above: Performed By: #### L [id number] ####[facility] ([facility])[address] [place] [address] Neutrophils (Bld) [#/Vol] 4.13 10*3/uL Normal 1.60-7.60 [facility] Comment on above: Performed By: #### L [id number] ####[facility] ([facility])[address] [place] [address] Neutrophils/100 WBC (Bld) 57.5 % Normal 40.0-72.0 [facility] Comment on above: Performed By: #### L [id number] ####[facility] ([facility])[address] [place] [address] NRBC (PER 100 WBCS) BY AUTOMATED COUNT 0.0 % Normal 0 [facility] Comment on above: Performed By: #### L [id number] ####[facility] ([facility])[address] [place] [address] PLATELETS (10*3/UL) IN BLOOD AUTOMATED COUNT 245 10*3/uL Normal 150-400 [facility] Comment on above: Performed By: #### L [id number] ####[facility] ([facility])[address] [place] [address] RBC (Bld) [#/Vol] 4.26 10*6/uL Normal 3.80-5.00 [facility] Comment on above: Performed By: #### L [id number] ####[facility] ([facility])[address] [place] [address] WBC (Bld) [#/Vol] 7.18 10*3/uL Normal 4.00-10.60 [facility] Comment on above: Performed By: #### L [id number] ####[facility] [place] [address] CONSULTon 07-11-2024 CONSULT -- Attestation signed by [...] Brown is the endocrine surgeon in the [place] area that would be most appropriate and [...] with plan for outpatient follow up with [facility]ocrinology Meseret Mac MD Cardiology Consult Note Reason for Consult: Chest pain HPI: Aby Madrigal is a 59 y.o. female patient is presenting as a transfer from [facility] for the evaluation of chest [...] medical history of Abnormal ECG, Diabetes mellitus ([facility]), Hyperlipidemia, Hypertension, Obstructive sleep apnea, Panic attacks, and Stroke ([facility]). Surgical History She has a past [...] Value Ventricular Rate 56 Atrial Rate 56 OK Interval 180 QRS DURATION 94 QT Interval 430 QTC (more content not included)... Normal [facility] EDPROVon 07-11-2024 EDPROV HPI Chief Complaint Patient [...] Pt states she was trasnfered here [place] [facility] transferred to cardiology. Pt states she had a cardiac stent placed last week. She denies fever, coughing, vomiting, abdominal pain. She admits diarrhea. She felt better when given ativan and worse when she was given morphine. She has had her gallbladder removed. History provided by: Patient supervisor pleating used: No Chest Pain Associated symptoms: no [...] Course & MDM Medical Decision Making Basilia Butst, documented on behalf of Dr. Anderson. Chief complaint chest pain Plan of Care: APTT, Troponin I, CBC, Protime-INR, BMP Attestation: Provider Statement SALVADOR: Provider Statement 2nd Scribe. By electronically signing this emergency patient record, the Emergency Physician/BULK SEALER OPERATOR/PA-C attests that all entries made into the electronic medical record by the scribe prior to the Physician/BULK SEALER OPERATOR/PA-C signature reflect an accurate accounting of the evaluation and care rendered by that Emergency Physician/BULK SEALER OPERATOR/PA-C. The Emergency Physician/BULK SEALER OPERATOR/PA-C assumes full responsibility for those entries. The Emergency Physician/BULK SEALER OPERATOR/PA-C also attests that any patient testing or treatment that was instituted by nursing staff. [facility] EDPROV HPI Chief Complaint Patient [...] Pt states she was trasnfered here from [place] to be transferred to cardiology. Pt states she had a cardiac stent placed last week. She denies fever, coughing, vomiting, abdominal pain. She admits diarrhea. She felt better when given ativan and worse when she was given morphine. She has had her gallbladder removed. History provided by: Patient supervisor pleating used: No Chest Pain Associated symptoms: no abdominal pain, no cough, no fever and no vomiting Sperry Coma Scale Score: 15 Patient History Past Medical History: Diagnosis Date Abnormal ECG Diabetes mellitus ([facility]/HCC) Hyperlipidemia Hypertension Obstructive sleep apnea Panic attacks Stroke ([facility]) Past Surgical History: Procedure Laterality Date [...] 07/11/24 1256 NSTEMI (non-ST elevated myocardial infarction) ([facility]) Medical Decision Making Amount and/or Complexity of Data Reviewed Labs: ordered. Decision-making details documented in ED Course. ECG/medicine tests: ordered and independent interpretation performed. Decision-making details documented in ED Course. Risk Drug therapy requiring intensive monitoring for toxicity. Decision regarding hospitalization. Minor surgery with identified risk factors. I, Basilia diallo (more content not included)... Invalid Interpretation Code [facility] POCT GLUCOSE METER UNSOLICIT ED RESULTSon 07-11-2024 Glucose [Mass/Vol] 122 mg/dL High 70-105 [facility] Comment on above: Order Comment: Waive d Testing in the ED is performed under the ED CLIA certificate #[id number]. Result Comment: [email or web address] Performed By: #### L [id number] #### [facility] ([facility]) [address] [place] [address] PROTIME-INRon 07-11-2024 INR IN PPP BY COAGULATION ASSAY 1.00 Normal 0.90-1.10 [facility] Comment on above: Result Comment: ACCC P [...] RANGE. CHEST 1995;108:[id number]. Performed By: #### L [id number] #### [facility] ([facility]) [address] [place] [address] PROTHROMBIN TIME (PT) IN PPP BY COAGULATION ASSAY 13.2 Seconds Normal 12.3-14.8 [facility] Comment on above: Performed By: #### L [id number] #### [facility] ([facility]) [address] [place] [address] RENIN ACTIVITYon 07-11-2024 RENIN ACTIVITY <0.1 Normal [facility] Comment on above: Result Comment: INTE RPRETIVE [...] developed and its performance characteristics determined by [facility]. It has not been cleared or approved by the [place] Food and Drug Administration. This test was performed in a CLIA certified laboratory and is intended for clinical purposes. Performed By: [facility] [address] [place] [address] Roof Bolter Helper: Navneet Simeon MD, PhD CLIA Number: [id number] Performed By: #### L [id number] ####[facility] ([facility])[address] [place] [address] TROPONIN Ion 07-11-2024 Troponin I.cardiac [Mass/Vol] 0.01 ng/mL Normal 0.00-0.04 [facility] Comment on above: Performed By: #### L [id number] #### [facility] ([facility]) [address] [place] [address] Office Visiton 07-10-2024 Follow-up visit [id number] Aby Madrigal 1965 F Date Provider Department Center 07/10/2024 [id number] [facility] Family History Problem Relation Age of Onset Lung cancer Mother No Known Problems Father Lung cancer Sister Family Status - Relation Status Age at Mother Father Sister Level of Service:42348 OK OFFICE/OUTPATIENT ESTABLISHED MOD MDM 30 MIN Reason for Visit and Comments: Coronary Artery Disease [187] Post-Cath [731] Normal [facility] 36on 07-03-2024 36 Post Discharge Call Good morning, I am Ginny Garcia RN a lead nurse from [facility]. I am calling you to [...] Patient Name Aby Madrigal Date 07/03/24 Normal [facility] Telephoneon 07-03-2024 Telephone [id number] Aby Madrigal 1965 F Date Provider Department Center 07/03/2024 GINNY MALONEY [facility] Family History Problem Relation Age of Onset Lung cancer Mother No Known Problems Father Lung cancer Sister Family Status - Relation Status Age at Mother Father Sister Reason for Visit and Comments: Hospital Follow-up [832] Normal [facility] 30on 07-01-2024 30 The patient is Moderately [...] and maintained or improved Outcome: Progressing Normal [facility] BASIC METABOLIC PANELon 06-22 Anion gap [Moles/Vol] 14 mmol/L Normal - [facility] Comment on above: Performed By: #### L [id number] #### [facility] ([facility]) [address] [place] [address] Calcium [Mass/Vol] 8.2 mg/dL Low 8.6-10.3 [facility] Comment on above: Performed By: #### L [id number] #### [facility] ([facility]) [address] [place] [address] Chloride [Moles/Vol] 106 mmol/L Normal 98-107 [facility] Comment on above: Performed By: #### L [id number] #### [facility] ([facility]) [address] [facility] [place] [address] CO2 [Moles/Vol] 25 mmol/L Normal 21-31 [facility] Comment on above: Performed By: #### L [id number] #### [facility] ([facility]) [address] [place] [address] Creatinine [Mass/Vol] 0.91 mg/dL Normal 0.60-1.20 [facility] Comment on above: Performed By: #### L [id number] #### [facility] ([facility]) [address] [place] [address] GLOMERULAR FILTRATION RATE ML/MIN/1.73 SQ M.PREDICTED 72.2 mL/min/1.73m*2 Normal >60.0 [facility] Comment on above: Result Comment: [facility]???s estimated glomerular filtration rate (eGFR) will no [...] L AB15 #### [facility] ([facility]) [address] [facility] [place] [address] Glucose [Mass/Vol] 101 mg/dL High 70-100 [facility] Comment on above: Performed By: #### L [id number] #### [facility] ([facility]) [address] [place] [address] Potassium [Moles/Vol] 3.5 mmol/L Normal 3.5-5.1 [facility] Comment on above: Performed By: #### L [id number] #### [facility] ([facility]) [address] [place] [address] Sodium [Moles/Vol] 141 mmol/L Normal 136-145 [facility] Comment on above: Performed By: #### L [id number] #### [facility] ([facility]) [address] [place] [address] Urea nitrogen [Mass/Vol] 13 mg/dL Normal 7-25 [facility] Comment on above: Performed By: #### L [id number] #### [facility] [address] [place] [address] UREA NITROGEN/CREATININE (MASS RATIO) IN SER/PLAS 14.3 Normal [facility] Comment on above: Performed By: #### L [id number] #### [facility] [address] [place] [address] CBCon 07-01-2024 Erythrocyte distribution width (RBC) [Ratio] 15.4 % High 11.5-15.0 [facility] Comment on above: Performed By: #### L [id number] ####[facility] ([facility] [place] [address] ERYTHROCYTE MEAN CORPUSCULAR HEMOGLOBIN CONCENTRATION (G/DL) BY AUTOMATED 32.1 g/dL Normal 32.0-35.0 [facility] Comment on above: Performed By: #### L [id number] ####[facility] [place] [address] Hematocrit (Bld) [Volume fraction] 38.6 % Normal 36.0-48.0 [facility] Comment on above: Performed By: #### L [id number] ####[facility] ([facility])[address] [place] [address] Hemoglobin (Bld) [Mass/Vol] 12.4 g/dL Normal 12.0-15.0 [facility] Comment on above: Performed By: #### L [id number] ####[facility] ([facility] [place] [address] MCH (RBC) [Entitic mass] 26.9 pg Low 27.0-33.0 [facility] Comment on above: Performed By: #### L [id number] ####[facility] ([facility])[address] [place] [address] MCV (RBC) [Entitic vol] 83.7 fL Normal 82.0-98.0 [facility] Comment on above: Performed By: #### L [id number] ####[facility] ([facility])[address] [place] [address] PLATELETS (10*3/UL) IN BLOOD AUTOMATED COUNT 238 10*3/uL Normal 150-400 [facility] Comment on above: Performed By: #### L [id number] ####[facility] ([facility])[address] [place] [address] RBC (Bld) [#/Vol] 4.61 10*6/uL Normal 3.80-5.00 [facility] Comment on above: Performed By: #### L [id number] ####[facility] ([facility])[address] [place] [address] WBC (Bld) [#/Vol] 7.04 10*3/uL Normal 4.00-10.60 [facility] Comment on above: Performed By: #### L [id number] ####[facility] ([facility])[address] [place] [address] LIPID PANELon 07-01-2024 CHOL/HDL 3.8 mg/dL Normal [facility] Comment on above: Performed By: #### L [id number] #### [facility] ([facility]) [address] [place] [address] Cholesterol [Mass/Vol] 128 mg/dL Normal 120-200 [facility] Comment on above: Performed By: #### L [id number] #### [facility] ([facility]) [address] [place] [address] Magnesium [Mass/Vol] 87 mg/dL Normal 40-149 [facility] Comment on above: Result Comment: TRIG LYCERIDE REFERENCE RANGE: 20 YEARS AND OLDER CARDIOVASCULAR RISK LESS THAN 150 mg/dL LOW RISK 150 TO 199 mg/dL BORDERLINE RISK 200 mg/dL AND GREATER HIGH RISK Performed By: #### L [id number] #### [facility] ([facility]) [address] [place] [address] Magnesium [Mass/Vol] 77 mg/dL Normal 0-160 [facility] Comment on above: Performed By: #### L [id number] #### [facility] ([facility]) [address] [place] [address] Magnesium [Mass/Vol] 34 mg/dL Normal 23-92 [facility] Comment on above: Performed By: #### L [id number] #### [facility] ([facility]) [address] [place] [address] NON HDL CHOL. (LDL+VLDL) 94 Normal [facility] Comment on above: Performed By: #### L [id number] #### [facility] ([facility]) [address] [place] [address] TOTAL VLDL-C 17 mg/dL Normal 0-40 [facility] Comment on above: Performed By: #### L [id number] #### [facility] ([facility]) [address] [place] [address] MAGNESIUMon 07-01-2024 Magnesium [Mass/Vol] 2.0 mg/dL Normal 1.9-2.7 [facility] Comment on above: Performed By: #### L [id number] ####[facility] ([facility])[address] [place] [address] NURSNOTEon 07-01-2024 NURSNOTE Discharge instructio ns given, reviewed, questions, answered, signed, copy received. Normal [facility] POCT GLUCOSE METER UNSOLICIT ED RESULTSon 07-01-2024 Glucose [Mass/Vol] 124 mg/dL High 70-105 [facility] Comment on above: Order Comment: Waive d Testing in the ED is performed under the ED CLIA certificate #[id number]. Result Comment: [email or web address] Performed By: #### L [id number] ####[facility] ([facility])[address] [place] [address] Glucose [Mass/Vol] 106 mg/dL High 70-105 [facility] Comment on above: Order Comment: Waive d Testing in the ED is performed under the ED CLIA certificate #[id number]. Result Comment: [email or web address] Performed By: #### L [id number] #### [facility] ([facility]) [address] [place] [address] TROPONIN Ion 07-01-2024 Troponin I.cardiac [Mass/Vol] 0.09 ng/mL High 0.00-0.04 [facility] Comment on above: Performed By: #### L [id number] #### [facility] ([facility]) [address] [place] [address] 30on 06-30-2024 30 The patient is Moderately Stable - Low risk of patient condition declining or worsening The patient's goals for the shift include comfort, rest The clinical goals for the shift include stable vitals, comfort Problem: Pain - Adult Goal: Verbalizes/displays adequate comfort level or baseline comfort level Outcome: Not Progressing Normal [facility] 30 Daily Case Managemen t Update Multidisciplinary [...] PT Recommendations: OT Recommendations: New Consults: Normal [facility] 30 The patient is Moderately Stable - Low risk of patient condition declining or worsening The patient's goals for the shift include COMFORT The clinical goals for the shift include VSS Over the shift, the patient did not make progress toward the following goals. Barriers to progression include . Recommendations to address these barriers include . Normal [facility] ANTI-XA (HEPARIN LEVEL)on HEPARIN UNFRACTIONATED (U/ML) IN PPP BY CHROMOGENIC METHOD 0.64 IU/mL Normal 0.3-0.7 [facility] Comment on above: Order Comment: Check anti-Xa level every 6 hours while on heparin infusion, or per protocol. Result Comment: [place] roxaban and Apixaban will interfere with the anti Xa assay used to monitor UFH and LMWH. Performed By: #### L [id number] ####[facility] ([facility])[address] [place] [address] BASIC METABOLIC PANELon 08-0 Anion gap [Moles/Vol] 11 mmol/L Normal 7-20 [facility] Comment on above: Performed By: #### L [id number] #### [facility] ([facility]) [address] [place] [address] Calcium [Mass/Vol] 8.3 mg/dL Low 8.6-10.3 [facility] Comment on above: Performed By: #### L [id number] #### [facility] ([facility] [address] [place] [address] Chloride [Moles/Vol] 110 mmol/L High 98-107 [facility] Comment on above: Performed By: #### L [id number] #### [facility] ([facility]) [address] [place] [address] CO2 [Moles/Vol] 26 mmol/L Normal 21-31 [facility] Comment on above: Performed By: #### L [id number] #### [facility] ([facility] [address] [place] [address] Creatinine [Mass/Vol] 0.81 mg/dL Normal 0.60-1.20 [facility] Comment on above: Performed By: #### L [id number] #### [facility] ([facility]) [address] [place] [address] GLOMERULAR FILTRATION RATE ML/MIN/1.73 SQ M.PREDICTED 83.1 mL/min/1.73m*2 Normal >60.0 [facility] Comment on above: Result Comment: [facility] [place]s estimated glomerular filtration rate (eGFR) will no [...] individuals. Performed By: #### L [id number] #### [facility] ([facility]) [address] [place] [address] Glucose [Mass/Vol] 110 mg/dL High 70-100 [facility] Comment on above: Performed By: #### L [id number] #### [facility] ([facility]) [address] [place] [address] Potassium [Moles/Vol] 3.7 mmol/L Normal 3.5-5.1 [facility] Comment on above: Performed By: #### L [id number] #### [facility] ([facility]) [address] [place] [address] Sodium [Moles/Vol] 143 mmol/L Normal 136-145 [facility] Comment on above: Performed By: #### L [id number] #### [facility] ([facility]) [address] [place] [address] Urea nitrogen [Mass/Vol] 10 mg/dL Normal 7-25 [facility] Comment on above: Performed By: #### L [id number] #### [facility] ([facility]) [address] [place] [address] UREA NITROGEN/CREATININE (MASS RATIO) IN SER/PLAS 12.3 Normal [facility] Comment on above: Performed By: #### L [id number] #### [facility] ([facility]) [address] [place] [address] CBCon 06-30-2024 Erythrocyte distribution width (RBC) [Ratio] 15.3 % High 11.5-15.0 [facility] Comment on above: Performed By: #### L [id number] #### [facility] ([facility]) [address] [place] [address] ERYTHROCYTE MEAN CORPUSCULAR HEMOGLOBIN CONCENTRATION (G/DL) BY AUTOMATED 31.3 g/dL Low 32.0-35.0 [facility] Comment on above: Performed By: #### L [id number] #### [facility] ([facility]) [address] [place] [address] Hematocrit (Bld) [Volume fraction] 36.7 % Normal 36.0-48.0 [facility] Comment on above: Performed By: #### L [id number] #### [facility] ([facility]) [address] [place] [address] Hemoglobin (Bld) [Mass/Vol] 11.5 g/dL Low 12.0-15.0 [facility] Comment on above: Performed By: #### L [id number] #### [facility] ([facility]) [address] [place] [address] MCH (RBC) [Entitic mass] 26.9 pg Low 27.0-33.0 [facility] Comment on above: Performed By: #### L [id number] #### [facility] [address] [place] [address] MCV (RBC) [Entitic vol] 85.7 fL Normal 82.0-98.0 [facility] Comment on above: Performed By: #### L [id number] #### [facility] ([facility]) [address] [address] PLATELETS (10*3/UL) IN BLOOD AUTOMATED COUNT 243 10*3/uL Normal 150-400 [facility] Comment on above: Performed By: #### L [id number] #### [facility] ([facility]) [address] [facility] [address] RBC (Bld) [#/Vol] 4.28 10*6/uL Normal 3.80-5.00 [facility] Comment on above: Performed By: #### L [id number] #### [facility] ([facility]) [address] [facility] [place] [address] WBC (Bld) [#/Vol] 7.41 10*3/uL Normal 4.00-10.60 [facility] Comment on above: Performed By: #### L [id number] #### [facility] ([facility]) [address] [facility] [place] [address] CONSULTon 06-30-2024 CONSULT Cardiology Consult Note Reason for Consult: NSTEMI, transfer from [facility] HPI: Aby Madrigal, a 59 y.o. female patient, is transferred from [facility] for continuity of care. Past medical history includes: HTN History of TIA DMII HLD SURESH Overweight Patient reports that 3 days ago, she woke up in the mid of the night with indigestion, and a feeling fullness, but no pressure like chest pain. She presented to [facility], where she was found to [...] Value Ventricular Rate 71 Atrial Rate 71 OK Interval 176 QRS DURATION 92 QT Interval 424 QTC CALCULATION(BAZETT) 460 P Charlotte 52 R-Charlotte 19 T Wave Charlotte 164 Impression Normal sinus rhythm Left ventricular [...] (more content not included)... [facility] H&P reviewed. The patient was examined and there are no changes to the H&P. 59 y.o. year old female with a PMHx significant for DM2, hypertension presents a direct mission from [facility] with a chief complaint of [...] to proceed. Signed, Yris Oakley MD PGY-4 Mcat Instructor Pager: [phone] [facility] POCT GLUCOSE METER UNSOLICIT ED RESULTSon 06-30-2024 Glucose [Mass/Vol] 170 mg/dL High 70-105 [facility] Comment on above: Order Comment: Waive d Testing in the ED is performed under the ED CLIA certificate #[id number]. Result Comment: [email or web address] Performed By: #### L [id number] #### [facility] ([facility]) [address] [place] [address] Glucose [Mass/Vol] 129 mg/dL High 70-105 [facility] Comment on above: Order Comment: Waive d Testing in the ED is performed under the ED CLIA certificate #[id number]. Result Comment: [email or web address] Performed By: #### L [id number] ####[facility] ([facility])[address] [place] [address] Glucose [Mass/Vol] 167 mg/dL High 70-105 [facility] Comment on above: Order Comment: Waive d Testing in the ED is performed under the ED CLIA certificate #[id number]. Result Comment: [email or web address] Performed By: #### L [id number] ####[facility] ([facility])[address] [place] [address] TROPONIN Ion 06-30-2024 Troponin I.cardiac [Mass/Vol] 0.07 ng/mL High 0.00-0.04 [facility] Comment on above: Performed By: #### L [id number] ####[facility] ([facility])[address] [place] [address] Troponin I.cardiac [Mass/Vol] 0.10 ng/mL High 0.00-0.04 [facility] Comment on above: Performed By: #### L [id number] #### [facility] ([facility]) [address] [place] [address] Troponin I.cardiac [Mass/Vol] 0.11 ng/mL Critically high 0.00-0.04 [facility] Comment on above: Result Comment: CEE CARR INITIAL CRITICAL HIGH; RESPUN AND RETESTED Performed By: #### L [id number] #### [facility] ([facility]) [address] [place] [address] 30on 06-29-2024 30 The patient is Moderately Stable - Low risk of patient condition declining or worsening The patient's goals for the shift include COMFORT The clinical goals for the shift include VSS Normal [facility] APTTon 06-29-2024 ACTIVATED PARTIAL THROMBOPLASTIN TIME IN PPP BY COAGULATION ASSAY 34.5 Seconds Normal 25.0-35.0 [facility] Comment on above: Order Comment: Basel ine aPTT before initiating heparin infusion. Result Comment: Clin ical significance of the APTT is questionable in the presence of heparin. Performed By: #### L [id number] #### [facility] ([facility]) [address] [place] [address] B-TYPE NATRIURETIC PEPTIDEon 06-29-2024 Natriuretic peptide B (Bld) [Mass/Vol] 222 pg/mL High 0-100 [facility] Comment on above: Performed By: #### L [id number] #### [facility] ([facility]) [address] [place] [address] CBC WITH AUTO DIFFERENTIALon 06-29-2024 Basophils (Bld) [#/Vol] 0.05 10*3/uL Normal 0.00-0.20 [facility] Comment on above: Performed By: #### L [id number] #### [facility] ([facility]) [address] [place] [address] Basophils/100 WBC (Bld) 0.6 % Normal 0.0-1.0 [facility] Comment on above: Performed By: #### L [id number] #### [facility] ([facility] [address] [place] [address] Eosinophils (Bld) [#/Vol] 0.18 10*3/uL Normal 0.00-0.50 [facility] Comment on above: Performed By: #### L [id number] #### [facility] ([facility]) [address] [place] [address] Eosinophils/100 WBC (Bld) 2.1 % Normal 0.0-6.0 [facility] Comment on above: Performed By: #### L [id number] #### [facility] ([facility]) [address] [facility] [place] [address] Erythrocyte distribution width (RBC) [Ratio] 14.9 % Normal 11.5-15.0 [facility] Comment on above: Performed By: #### L [id number] #### [facility] ([facility]) [address] [place] [address] ERYTHROCYTE MEAN CORPUSCULAR HEMOGLOBIN CONCENTRATION (G/DL) BY AUTOMATED 32.9 g/dL Normal 32.0-35.0 [facility] Comment on above: Performed By: #### L [id number] #### [facility] ([facility]) [address] [place] [address] Hematocrit (Bld) [Volume fraction] 35.9 % Low 36.0-48.0 [facility] Comment on above: Performed By: #### L [id number] #### [facility] [address] [place] [address] Hemoglobin (Bld) [Mass/Vol] 11.8 g/dL Low 12.0-15.0 [facility] Comment on above: Performed By: #### L [id number] #### [facility] ([facility]) [address] [place] [address] Immature granulocytes (Bld) [#/Vol] 0.03 10*3/uL Normal 0.00-0.20 [facility] Comment on above: Performed By: #### L [id number] #### [facility] ([facility]) [address] [place] [address] Immature granulocytes/100 WBC (Bld) 0.3 % Normal 0.0-1.0 [facility] Comment on above: Performed By: #### L [id number] #### [facility] ([facility]) [address] [place] [address] Lymphocytes (Bld) [#/Vol] 2.02 10*3/uL Normal 1.20-4.00 [facility] Comment on above: Performed By: #### L [id number] #### [facility] ([facility]) [address] [facility] [place] [address] Lymphocytes/100 WBC (Bld) 23.5 % Normal 20.0-45.0 [facility] Comment on above: Performed By: #### L [id number] #### [facility] ([facility]) [address] [facility] [place] [address] MCH (RBC) [Entitic mass] 27.2 pg Normal 27.0-33.0 [facility] Comment on above: Performed By: #### L [id number] #### [facility] [address] [place] [address] MCV (RBC) [Entitic vol] 82.7 fL Normal 82.0-98.0 [facility] Comment on above: Performed By: #### L [id number] #### [facility] ([facility]) [address] [facility] [place] [address] Monocytes (Bld) [#/Vol] 0.56 10*3/uL Normal 0.10-1.00 [facility] Comment on above: Performed By: #### L [id number] #### [facility] [address] [place] [address] Monocytes/100 WBC (Bld) 6.5 % Normal 5.0-12.0 [facility] Comment on above: Performed By: #### L [id number] #### [facility] ([facility]) [address] [place] [address] Neutrophils (Bld) [#/Vol] 5.74 10*3/uL Normal 1.60-7.60 [facility] Comment on above: Performed By: #### L [id number] #### [facility] ([facility]) [address] [place] [address] Neutrophils/100 WBC (Bld) 67.0 % Normal 40.0-72.0 [facility] Comment on above: Performed By: #### L [id number] #### [facility] ([facility]) [address] [place] [address] NRBC (PER 100 WBCS) BY AUTOMATED COUNT 0.0 % Normal 0 [facility] Comment on above: Performed By: #### L [id number] #### [facility] ([facility]) [address] [place] [address] PLATELETS (10*3/UL) IN BLOOD AUTOMATED COUNT 233 10*3/uL Normal 150-400 [facility] Comment on above: Performed By: #### L [id number] #### [facility] ([facility]) [address] [place] [address] RBC (Bld) [#/Vol] 4.34 10*6/uL Normal 3.80-5.00 [facility] Comment on above: Performed By: #### L [id number] #### [facility] ([facility]) [address] [place] [address] WBC (Bld) [#/Vol] 8.58 10*3/uL Normal 4.00-10.60 [facility] Comment on above: Performed By: #### L [id number] #### [facility] [address] [place] [address] COMPREHENSIVE METABOLIC PANE Alec 06-29-2024 Albumin [Mass/Vol] 3.8 g/dL Normal 3.5-5.7 [facility] Comment on above: Performed By: #### L [id number] ####[facility] ([facility] [place] [address] ALP [Catalytic activity/Vol] 64 U/L Normal 34-104 [facility] Comment on above: Performed By: #### L [id number] ####[facility] [place] [address] ALT [Catalytic activity/Vol] 35 U/L Normal 7-52 [facility] Comment on above: Performed By: #### L [id number] ####[facility] ([facility] [place] [address] Anion gap [Moles/Vol] 12 mmol/L Normal 7-20 [facility] Comment on above: Performed By: #### L [id number] ####[facility] ([facility] [place] [address] AST [Catalytic activity/Vol] 21 U/L Normal 13-39 [facility] Comment on above: Performed By: #### L [id number] ####[facility] [place] [address] Bilirubin [Mass/Vol] 0.4 mg/dL Normal 0.3-1.0 [facility] Comment on above: Performed By: #### L [id number] ####[facility] [place] [address] Calcium [Mass/Vol] 8.5 mg/dL Low 8.6-10.3 [facility] Comment on above: Performed By: #### L [id number] ####[facility] [place] [address] Chloride [Moles/Vol] 112 mmol/L High 98-107 [facility] Comment on above: Performed By: #### L [id number] ####[facility] ([facility])[address] [place] [address] CO2 [Moles/Vol] 22 mmol/L Normal 21-31 [facility] Comment on above: Performed By: #### L [id number] ####[facility] ([facility] [place] [address] Creatinine [Mass/Vol] 0.92 mg/dL Normal 0.60-1.20 [facility] Comment on above: Performed By: #### L [id number] ####[facility] ([facility] [place] [address] GLOMERULAR FILTRATION RATE ML/MIN/1.73 SQ M.PREDICTED 71.3 mL/min/1.73m*2 Normal >60.0 [facility] Comment on above: Result Comment: [facility]???s estimated glomerular filtration rate (eGFR) will no [...] L AB17 ####[facility] ([facility] [place] [address] Glucose [Mass/Vol] 108 mg/dL High 70-100 [facility] Comment on above: Performed By: #### L [id number] ####[facility] [place] [address] Potassium [Moles/Vol] 3.7 mmol/L Normal 3.5-5.1 [facility] Comment on above: Performed By: #### L [id number] ####[facility] ([facility] [place] [address] Protein [Mass/Vol] 6.1 g/dL Normal 6.0-8.3 [facility] Comment on above: Performed By: #### L [id number] ####[facility] ([facility])[address] [place] [address] Sodium [Moles/Vol] 142 mmol/L Normal 136-145 [facility] Comment on above: Performed By: #### L [id number] ####[facility] ([facility])[address] [place] [address] Urea nitrogen [Mass/Vol] 11 mg/dL Normal 7-25 [facility] Comment on above: Performed By: #### L [id number] ####[facility] ([facility])[address] [place] [address] UREA NITROGEN/CREATININE (MASS RATIO) IN SER/PLAS 12.0 Normal [facility] Comment on above: Performed By: #### L [id number] ####[facility] ([facility])[address] [place] [address] MAGNESIUMon 06-29-2024 Magnesium [Mass/Vol] 1.7 mg/dL Low 1.9-2.7 [facility] Comment on above: Performed By: #### L [id number] ####[facility] ([facility])[address] [place] [address] PHOSPHORUSon 06-29-2024 Magnesium [Mass/Vol] 2.9 mg/dL Normal 2.5-5.0 [facility] Comment on above: Performed By: #### L [id number] ####[facility] ([facility])[address] [place] [address] PROTIME-INRon 06-29-2024 INR IN PPP BY COAGULATION ASSAY 0.99 Normal 0.90-1.10 [facility] Comment on above: Result Comment: ACCC P [...] L [id number] #### [facility] ([facility]) [address] [place] [address] PROTHROMBIN TIME (PT) IN PPP BY COAGULATION ASSAY 13.1 Seconds Normal 12.3-14.8 [facility] Comment on above: Performed By: #### L [id number] #### [facility] ([facility]) [address] [place] [address] TROPONIN Ion 06-29-2024 Troponin I.cardiac [Mass/Vol] 0.10 ng/mL High 0.00-0.04 [facility] Comment on above: Performed By: #### L [id number] ####[facility] ([facility])[address] [place] [address] Office Visiton 06-21-2024 Follow-up visit [id number] Aby Madrigal 1965 F Date Provider Department Center 06/21/2024 GOMEZ KENDALL RIAZ [place] Family History Problem Relation Age of Onset Lung cancer Mother No Known Problems Father Lung cancer Sister Family Status - Relation Status Age at Mother Father Sister Level of Service:15367 OK OFFICE/OUTPATIENT ESTABLISHED MOD MDM 30 MIN Normal [facility] Office Visiton 05-26-2024 Follow-up visit [id number] Sanjana Madrigalty S 1965 F Date Provider Department Center 05/26/2024 95047-VYSGGEBIJAN VAZQUEZ RIAZ [place] Family History Problem Relation Age of Onset Lung cancer Mother No Known Problems Father Lung cancer Sister Family Status - Relation Status Age at Mother Father Sister Level of Service:27545 OK OFFICE/OUTPATIENT NEW MODERATE MDM 45 MINUTES Normal [facility] Outside Colonoscopyon 2022 Outside Colonoscopy [id number] 0CD:127 Normal [facility] Reminderson 11-27-2022 Reminders - From: Na Hayes LPN To: N - Clinical; Sent: 11/27/2022 12:46:10 EST Show up: 10/25/2032 07:00:00 EST Subject: colonoscopy recall Due Date/Time: 11/25/2032 07:00:00 EST Reminder/Recall Patient is due for screening colonoscopy 11/25/2032. Normal [facility] Lab Reportson 11-24-2022 Lab Reports [id number] 0CD:127 Normal [facility] Covid-19 PCR (CVDTB)on 10-24 SARS-CoV-2 (COVID-19) RNA BECK+probe Ql (Unsp spec) Not detected Normal NOT DETECTED [facility] Comment on above: Result Comment: This test is not yet approved or cleared by the [place] FDA. When there are no FDA-approved or cleared tests available, and other criteria are met, FDA can make tests available under an emergency access mechanism called an Emergency Use Authorization (EUA). The EUA for this test is supported by the Cytology Laboratory Manager of Health and Human Service's (HHS's) declaration [...] consistent with SARS-CoV-2. Performed By: #### C [facility] #### [facility] [address] [address] [address] Rich Cutler Consent for Procedure/Surger yon 10-07-2022 Consent for Procedure/Surgery [id number] 0CD:127 Normal [facility] [...] : DR KENDRA MORAN . 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 Tech Note: Incompetent SFJ and GSV. Patent varicose vein mid/med calf 2.9mm with 0s reflux. Patent varicose vein prox/post calf 3.8mm with 0s reflux. Patent varicose vein dist/med thigh 3.8mm with 2.0s reflux. CONCLUSION: 1. Mild right and tnyx-gh-iiiscpuc left great saphenous vein venous insufficiency with dilatation 2. Left saphenous popliteal junction reflux 3. Mild left anterior accessory saphenous vein venous insufficiency without dilatation 4. Small bilateral incompetent varicose veins Dictated by: Adelia Lezama MD on 10/02/2022 at 13:36 Approved by: Adelia Lezama MD on 10/02/2022 at 13:52 Normal [facility] ECHOCARDIO M/2D COMPLETEon 1 11-30-2021 ECHOCARDIO M/2D COMPLETE Patient: ABY MADRIGAL Exam Date: 09/30/2022 : 1965 Gender:F Ordering : DR KENDRA MORAN . Admission #: [id number] Family : Order #: [id number] CLICK HERE TO VIEW EXAM ECHOCARDIOGRAM REPORT [...] 09/30/2022 at 18:37 Normal [facility] BNPon 09-24-2022 Natriuretic peptide B (Bld) [Mass/Vol] 501.0 pg/mL Normal <=900.0 [facility] Comment on above: Performed By: #### C VDTB #### [facility] [address] [place] [address] Dr. Rich Cutler CBC AUTO DIFFon 09-24-2022 BASO # 0.1 103/ul Normal 0.0-0.1 [facility] Comment on above: Performed By: #### C VDTBH #### [facility] [address] [place] [address] Dr. Rich Cutler Basophils/100 WBC (Bld) 0.8 % Normal 0.2-2.0 [facility] Comment on above: Performed By: #### C VDTBH #### [facility] [address] [place] [address] Dr. Rich Cutler EO # 0.3 103/ul Normal 0.0-0.7 [facility] Comment on above: Performed By: #### C VDTBH #### [facility] [address] [place] [address] Dr. Rich Cutler Eosinophils/100 WBC (Bld) 3.4 % Normal 0.9-7.0 [facility] Comment on above: Performed By: #### C VDTBH #### [facility] [address] [place] [address] Dr. Rich Cutler Erythrocyte distribution width (RBC) [Ratio] 13.3 % Normal 11.0-15.0 [facility] Comment on above: Performed By: #### C VDTBH #### [facility] [address] [place] [address] Dr. Rich Cutler Hematocrit (Bld) [Volume fraction] 40.5 % Normal 36.0-48.0 [facility] Comment on above: Performed By: #### C VDTBH #### [facility] [address] [place] [address] Dr. Rich Cutler Hemoglobin (Bld) [Mass/Vol] 13.1 g/dL Normal 12.0-16.0 [facility] Comment on above: Performed By: #### C VDTBH #### [facility] [address] [place] [address] Dr. Rich Cutler IG # 0.02 10e3/ul Normal 0.00-0.03 [facility] Comment on above: Performed By: #### C VDTBH #### [facility] [address] [place] [address] Dr. Rich Cutler IG % 0.3 % Normal 0.0-0.5 [facility] Comment on above: Performed By: #### C VDTBH #### [facility] [address] [place] [address] Dr. Rich Cutlre LYMPH # 2.7 103/ul Normal 1.2-3.8 [facility] Comment on above: Performed By: #### C VDTBH #### [facility] [address] [place] [address] Dr. Rich Cutler Lymphocytes/100 WBC (Bld) 35.4 % Normal 20.5-60.0 [facility] Comment on above: Performed By: #### C VDTBH #### [facility] [address] [place] [address] Dr. Rich Cutler MANUAL DIFF REQ NO Normal [facility] Comment on above: Performed By: #### C VDTBH #### [facility] [address] [place] [address] Dr. Rich Cutler MCH (RBC) [Entitic mass] 28.2 pg Normal 26.7-34.0 [facility] Comment on above: Performed By: #### C VDTBH #### [facility] [address] [place] [address] Dr. Rich Cutler MCHC (RBC) [Mass/Vol] 32.3 g/dL Normal 29.9-35.2 [facility] Comment on above: Performed By: #### C VDTBH #### [facility] [address] [place] [address] Dr. Rich Cutler MCV (RBC) [Entitic vol] 87.3 fL Normal 81.0-99.0 [facility] Comment on above: Performed By: #### C VDTBH #### [facility] [address] [place] [address] Dr. Rich Cutler MONO # 0.5 103/ul Normal 0.3-0.8 [facility] Comment on above: Performed By: #### C VDTBH #### [facility] [address] [place] [address] Dr. Rich Cutlre Monocytes/100 WBC (Bld) 6.5 % Normal 1.7-12.0 [facility] Comment on above: Performed By: #### C VDTBH #### [facility] [address] [place] [address] Dr. Rich Cutler NEUT # 4.1 103/ul Normal 1.4-6.5 [facility] Comment on above: Performed By: #### C VDTBH #### [facility] [address] [place] [address] Dr. Rich Cutler Neutrophils/100 WBC (Bld) 53.6 % Normal 43.0-75.0 [facility] Comment on above: Performed By: #### C VDTBH #### [facility] [address] [place] [address] Dr. Rich Cutler Platelet mean volume (Bld) [Entitic vol] 10.3 fL Normal 9.5-13.5 [facility] Comment on above: Performed By: #### C VDTBH #### [facility] [address] [place] [address] Dr. Rich Cutler PLT 283 103/ul Normal 150-450 [facility] Comment on above: Performed By: #### C VDTBH #### [facility] [address] [place] [address] Dr. Rich Cutler RBC 4.64 106/ul Normal 4.20-5.40 [facility] Comment on above: Performed By: #### C VDTBH #### [facility] [address] [place] [address] Dr. Rich Cutler WBC 7.6 103/ul Normal 4.0-11.0 [facility] Comment on above: Performed By: #### C VDTBH #### [facility] [address] [place] [address] Dr. Rich Cutler INSULINon 09-24-2022 Insulin 15.1 uIU/mL Normal 2.6-24.9 [facility] Comment on above: Performed By: #### C VDTBH #### [facility] [address] [place] [address] Dr. Rich Cutler PROF 14(COMP METB)on 022 Albumin [Mass/Vol] 3.5 g/dL Normal 3.4-5.0 [facility] Comment on above: Performed By: #### C VDTBH #### [facility] [address] [place] [address] Dr. Rich Cutler Albumin/Globulin [Mass ratio] 1.0 {ratio} Normal [facility] Comment on above: Performed By: #### C VDTBH #### [facility] [address] [place] [address] Dr. Rich Cutler ALP [Catalytic activity/Vol] 91 U/L Normal 46-116 [facility] Comment on above: Performed By: #### C VDTBH #### [facility] [address] [address] [address] Rich Cutler ALT [Catalytic activity/Vol] 47 U/L Normal 14-59 [facility] Comment on above: Performed By: #### C VDTBH #### [facility] [address] [place] [address] Dr. Rich Cutler Anion gap [Moles/Vol] 11.7 mmol/L Normal [facility] Comment on above: Performed By: #### C VDTBH #### [facility] [address] [address] [address] Rich Cutler AST [Catalytic activity/Vol] 24 U/L Normal 15-37 [facility] Comment on above: Performed By: #### C VDTBH #### [facility] [address] [place] [address] Dr. Rich Cutler Bilirubin [Mass/Vol] 0.2 mg/dL Normal 0.2-1.0 [facility] Comment on above: Performed By: #### C VDTBH #### [facility] [address] [place] [address] Dr. Rich Cutler Calcium [Mass/Vol] 8.9 mg/dL Normal 8.5-10.1 [facility] Comment on above: Performed By: #### C VDTBH #### [facility] [address] [place] [address] Dr. Rich Cutler Chloride [Moles/Vol] 105 mmol/L Normal 98-107 [facility] Comment on above: Performed By: #### C VDTBH #### [facility] [address] [place] [address] Dr. Rich Cutler CO2 [Moles/Vol] 28.1 mmol/L Normal 21.0-32.0 [facility] Comment on above: Performed By: #### C VDTBH #### [facility] [address] [place] [address] Dr. Rich Cutler Creatinine [Mass/Vol] 1.13 mg/dL Critically high 0.55-1.02 [facility] Comment on above: Performed By: #### C VDTBH #### [facility] [address] [address] [address] Rich Cutler EGFR-AF CHILEAN 60 mL/min/1.73m2 Normal >=60 [facility] Comment on above: Performed By: #### C VDTBH #### [facility] [address] [address] [address] Rich Cutler EGFR-NON AF CHILEAN 49 mL/min/1.73m2 Critically low >=60 [facility] Comment on above: Performed By: #### C VDTBH #### [facility] [address] [address] [address] Rich Cutler Globulin (S) [Mass/Vol] 3.5 g/dL Normal [facility] Comment on above: Performed By: #### C VDTBH #### [facility] [address] [place] [address] Dr. Rich Cutler Glucose [Mass/Vol] 119 mg/dL Critically high 74-106 [facility] Comment on above: Performed By: #### C VDTBH #### [facility] [address] [place] [address] Dr. Rich Cutler Potassium [Moles/Vol] 3.8 mmol/L Normal 3.5-5.1 [facility] Comment on above: Performed By: #### C VDTBH #### [facility] [address] [place] [address] Dr. Rich Cutler Protein [Mass/Vol] 7.0 g/dL Normal 6.4-8.2 [facility] Comment on above: Performed By: #### C VDTBH #### [facility] [address] [place] [address] Dr. Rich Cutler Sodium [Moles/Vol] 141 mmol/L Normal 136-145 [facility] Comment on above: Performed By: #### C VDTBH #### [facility] [address] [address] [address] Rich Cutler Urea nitrogen [Mass/Vol] 16.0 mg/dL Normal 7.0-18.0 [facility] Comment on above: Performed By: #### C VDTBH #### [facility] [address] [place] [address] Dr. Rich Cutler Urea nitrogen/Creatinine [Mass ratio] 14.2 mg/mg Normal [facility] Comment on above: Performed By: #### C VDTBH #### [facility] [address] [place] [address] Dr. Rich Cutler TROPONIN, HIGH SENSITIVITYon 09-24-2022 HSTROP 10.6 pg/mL Normal 4.0-51.3 [facility] Comment on above: Result Comment: CUT- OFF POINTS HAVE BEEN ESTABLISHED BASED ON THE FOURTH UNIVERSAL DEFINITIONS OF MYOCARDIAL INFARCTION. THE UPPER REFERENCE LIMIT (URL) OF TROPONIN, DEFINED THE 99TH PERCENTILE OF cTnI DISTRIBUTION IN A REFERENCE POPULATION, HAS BEEN CONFIRMED THE DECISION THRESHOLD FOR OH DIAGNOSIS. Performed By: #### C VDTBH #### [facility] [address] [place] [address] Dr. Rich Cutler XR CHEST 1 Von [...] Date: 2022-09-24 04:08 Normal [facility] CBC AUTO DIFFon 09-23-2022 BASO # 0.1 103/ul Normal 0.0-0.1 [facility] Comment on above: Performed By: #### C BC #### [facility] [address] [place] [address] Dr. Rich Cutler Basophils/100 WBC (Bld) 0.8 % Normal 0.2-2.0 [facility] Comment on above: Performed By: #### C BC #### [facility] [address] [place] [address] Dr. Rich Cutler EO # 0.2 103/ul Normal 0.0-0.7 [facility] Comment on above: Performed By: #### C BC #### [facility] [address] [place] [address] Dr. Rich Cutler Eosinophils/100 WBC (Bld) 3.5 % Normal 0.9-7.0 [facility] Comment on above: Performed By: #### C BC #### [facility] [address] [place] [address] Dr. Rich Cutler Erythrocyte distribution width (RBC) [Ratio] 13.4 % Normal 11.0-15.0 [facility] Comment on above: Performed By: #### C BC #### [facility] [address] [place] [address] Dr. Rich Cutler Hematocrit (Bld) [Volume fraction] 42.3 % Normal 36.0-48.0 [facility] Comment on above: Performed By: #### C BC #### [facility] [address] [place] [address] Dr. Rich Cutler Hemoglobin (Bld) [Mass/Vol] 13.4 g/dL Normal 12.0-16.0 [facility] Comment on above: Performed By: #### C BC #### [facility] [address] [place] [address] Dr. Rich Cutler IG # 0.03 10e3/ul Normal 0.00-0.03 [facility] Comment on above: Performed By: #### C BC #### [facility] [address] [place] [address] Dr. Rich Cutler IG % 0.5 % Normal 0.0-0.5 [facility] Comment on above: Performed By: #### C BC #### [facility] [address] [place] [address] Dr. Rich Cutler LYMPH # 2.9 103/ul Normal 1.2-3.8 [facility] Comment on above: Performed By: #### C BC #### [facility] [address] [place] [address] Dr. Rich Cutler Lymphocytes/100 WBC (Bld) 44.0 % Normal 20.5-60.0 [facility] Comment on above: Performed By: #### C BC #### [facility] [address] [place] [address] Dr. Rich Cutler MANUAL DIFF REQ NO Normal [facility] Comment on above: Performed By: #### C BC #### [facility] [address] [place] [address] Dr. Rich Cutler MCH (RBC) [Entitic mass] 28.4 pg Normal 26.7-34.0 [facility] Comment on above: Performed By: #### C BC #### [facility] [address] [place] [address] Dr. Rich Cutler MCHC (RBC) [Mass/Vol] 31.7 g/dL Normal 29.9-35.2 [facility] Comment on above: Performed By: #### C BC #### [facility] [address] [place] [address] Dr. Rich Cutler MCV (RBC) [Entitic vol] 89.6 fL Normal 81.0-99.0 [facility] Comment on above: Performed By: #### C BC #### [facility] [address] [place] [address] Dr. Rich Cutler MONO # 0.4 103/ul Normal 0.3-0.8 [facility] Comment on above: Performed By: #### C BC #### [facility] [address] [place] [address] Dr. Rich Cutler Monocytes/100 WBC (Bld) 6.6 % Normal 1.7-12.0 [facility] Comment on above: Performed By: #### C BC #### [facility] [address] [place] [address] Dr. Rich Cutler NEUT # 2.9 103/ul Normal 1.4-6.5 [facility] Comment on above: Performed By: #### C BC #### [facility] [address] [place] [address] Dr. Rich Cutler Neutrophils/100 WBC (Bld) 44.6 % Normal 43.0-75.0 [facility] Comment on above: Performed By: #### C BC #### [facility] [address] [address] [address] Rich Cutler Platelet mean volume (Bld) [Entitic vol] 11.0 fL Normal 9.5-13.5 [facility] Comment on above: Performed By: #### C BC #### [facility] [address] [address] [address] Rich Cutler PLT 272 103/ul Normal 150-450 [facility] Comment on above: Performed By: #### C BC #### [facility] [address] [address] [address] Rich Cutler RBC 4.72 106/ul Normal 4.20-5.40 [facility] Comment on above: Performed By: #### C BC #### [facility] [address] [address] [address] Rich Cutler WBC 6.5 103/ul Normal 4.0-11.0 [facility] Comment on above: Performed By: #### C BC #### [facility] [address] [place] [address] Dr. Rich Cutler FREE THYROXINE INDEX T7on FTI 2.16 Normal 1.30-4.50 [facility] Comment on above: Performed By: #### L IPID, TSH, T7, CMP #### [facility] [address] [address] [address] Rich Cutler T3U 30.0 % Normal 30.0-39.0 [facility] Comment on above: Performed By: #### L IPID, TSH, T7, CMP #### [facility] [address] [address] [address] Rich Cutler T4 [Mass/Vol] 7.20 ug/dL Normal 4.80-13.90 [facility] Comment on above: Performed By: #### L IPID, TSH, T7, CMP #### [facility] [address] [address] [address] Rich Cutler GLYCOHEMOGLOBIN A1Con 2021 ADA RECOMMENDATION SEE BELOW Normal [facility] Comment on above: Result Comment: ADA RECOMMENDED LIMIT 4.0 - 6.0 ADA THERAPEUTIC TARGET < 7.0 ACTION SUGGESTED > 7.0 Performed By: #### A 1C #### [facility] [address] [place] [address] Dr. Rich Cutler Glucose [Mass/Vol] 128 mg/dL Normal [facility] Comment on above: Performed By: #### A 1C #### [facility] [address] [place] [address] Dr. Rich Cutler HbA1c (Bld) [Mass fraction] 6.1 % Normal 4.5-6.2 [facility] Comment on above: Performed By: #### A 1C #### [facility] [address] [place] [address] Dr. Rich Cutler IRONon 09-23-2022 Iron [Mass/Vol] 64.0 ug/dL Normal 50.0-170.0 [facility] Comment on above: Performed By: #### C VDTBH #### [facility] [address] [place] [address] Dr. Rich Cutler LIPID PROFILEon 09-23-2022 CHOL-HDL RATIO NORM SEE BELOW Normal [facility] Comment on above: Result Comment: 3.3 - 4.4 LOW RISK 4.4 - 7.1 AVERAGE RISK 7.1 - 11.0 MODERATE RISK >11.0 HIGH RISK Performed By: #### L IPID, TSH, T7, CMP #### [facility] [address] [place] [address] Dr. Rich Cutler Cholesterol [Mass/Vol] 237 mg/dL Critically high <=200 [facility] Comment on above: Performed By: #### L IPID, TSH, T7, CMP #### [facility] [address] [place] [address] Dr. Rich Cutler Cholesterol in HDL [Mass/Vol] 44 mg/dL Normal 40-60 [facility] Comment on above: Performed By: #### L IPID, TSH, T7, CMP #### [facility] [address] [place] [address] Dr. Rich Cutler Cholesterol in LDL [Mass/Vol] 172.2 mg/dL Normal [facility] Comment on above: Performed By: #### L IPID, TSH, T7, CMP #### [facility] [address] [address] [address] Rich Cutler Cholesterol.total/C holesterol in HDL [Mass ratio] 5.4 {ratio} Normal [facility] Comment on above: Performed By: #### L IPID, TSH, T7, CMP #### [facility] [address] [place] [address] Dr. Rich Cutler HDL NORMAL > or = 60 mg/dl - LO W CARDIOVASCULAR RISK <40 mg/dl - HIGH CARDIOVASCULAR RISK Normal [facility] Comment on above: Performed By: #### L IPID, TSH, T7, CMP #### [facility] [address] [place] [address] Dr. Rich Cutler LDL CALC NORMAL SEE BELOW Normal [facility] Comment on above: Result Comment: <100 mg/dl OPTIMAL 100 - 129 mg/dl NEAR OR ABOVE OPTIMAL 130 - 159 mg/dl BORDERLINE HIGH 160 - 189 mg/dl HIGH >190 mg/dl VERY HIGH Performed By: #### L IPID, TSH, T7, CMP #### [facility] [address] [address] [address] Rich Cutler Triglyceride [Mass/Vol] 104 mg/dL Normal <=150 [facility] Comment on above: Performed By: #### L IPID, TSH, T7, CMP #### [facility] [address] [address] [address] Rich Cutler VLDL CALC 20.8 mg/dL Normal [facility] Comment on above: Performed By: #### L IPID, TSH, T7, CMP #### [facility] [address] [place] [address] Dr. Rich Cutler PROF 14(COMP METB)on 022 Albumin [Mass/Vol] 3.5 g/dL Normal 3.4-5.0 [facility] Comment on above: Performed By: #### L IPID, TSH, T7, CMP #### [facility] [address] [address] [address] Rich Cutler Albumin/Globulin [Mass ratio] 0.9 {ratio} Normal [facility] Comment on above: Performed By: #### L IPID, TSH, T7, CMP #### [facility] [address] [address] [address] Rich Cutler ALP [Catalytic activity/Vol] 93 U/L Normal 46-116 [facility] Comment on above: Performed By: #### L IPID, TSH, T7, CMP #### [facility] [address] [place] [address] Dr. Rich Cutler ALT [Catalytic activity/Vol] 44 U/L Normal 14-59 [facility] Comment on above: Performed By: #### L IPID, TSH, T7, CMP #### [facility] [address] [place] [address] Dr. Rich Cutler Anion gap [Moles/Vol] 8.5 mmol/L Normal [facility] Comment on above: Performed By: #### L IPID, TSH, T7, CMP #### [facility] [address] [place] [address] Dr. Rich Cutler AST [Catalytic activity/Vol] 26 U/L Normal 15-37 [facility] Comment on above: Performed By: #### L IPID, TSH, T7, CMP #### [facility] [address] [place] [address] Dr. Rich Cutler Bilirubin [Mass/Vol] 0.3 mg/dL Normal 0.2-1.0 [facility] Comment on above: Performed By: #### L IPID, TSH, T7, CMP #### [facility] [address] [place] [address] Dr. Rich Cutler Calcium [Mass/Vol] 9.0 mg/dL Normal 8.5-10.1 [facility] Comment on above: Performed By: #### L IPID, TSH, T7, CMP #### [facility] [address] [place] [address] Dr. Rich Cutler Chloride [Moles/Vol] 106 mmol/L Normal 98-107 [facility] Comment on above: Performed By: #### L IPID, TSH, T7, CMP #### [facility] [address] [address] [address] Rich Cutler CO2 [Moles/Vol] 31.0 mmol/L Normal 21.0-32.0 [facility] Comment on above: Performed By: #### L IPID, TSH, T7, CMP #### [facility] [address] [place] [address] Dr. Rich Cutler Creatinine [Mass/Vol] 1.11 mg/dL Critically high 0.55-1.02 [facility] Comment on above: Performed By: #### L IPID, TSH, T7, CMP #### [facility] [address] [place] [address] Dr. Rich Cutler EGFR-AF CHILEAN >60 Normal >=60 [facility] Comment on above: Performed By: #### L IPID, TSH, T7, CMP #### [facility] [address] [place] [address] Dr. Rich Cutler EGFR-NON AF CHILEAN 50 mL/min/1.73m2 Critically low >=60 [facility] Comment on above: Performed By: #### L IPID, TSH, T7, CMP #### [facility] [address] [place] [address] Dr. Rich Cutler Globulin (S) [Mass/Vol] 3.7 g/dL Normal [facility] Comment on above: Performed By: #### L IPID, TSH, T7, CMP #### [facility] [address] [place] [address] Dr. Rich Cutler Glucose [Mass/Vol] 121 mg/dL Critically high 74-106 [facility] Comment on above: Performed By: #### L IPID, TSH, T7, CMP #### [facility] [address] [place] [address] Dr. Rich Cutler Potassium [Moles/Vol] 4.5 mmol/L Normal 3.5-5.1 [facility] Comment on above: Performed By: #### L IPID, TSH, T7, CMP #### [facility] [address] [address] [address] Rich Cutler Protein [Mass/Vol] 7.2 g/dL Normal 6.4-8.2 [facility] Comment on above: Performed By: #### L IPID, TSH, T7, CMP #### [facility] [address] [place] [address] Dr. Rich Cutler Sodium [Moles/Vol] 141 mmol/L Normal 136-145 [facility] Comment on above: Performed By: #### L IPID, TSH, T7, CMP #### [facility] [address] [place] [address] Dr. Rich Cutler Urea nitrogen [Mass/Vol] 16.0 mg/dL Normal 7.0-18.0 [facility] Comment on above: Performed By: #### L IPID, TSH, T7, CMP #### [facility] [address] [place] [address] Dr. Rich Cutler Urea nitrogen/Creatinine [Mass ratio] 14.4 mg/mg Normal [facility] Comment on above: Performed By: #### L IPID, TSH, T7, CMP #### [facility] [address] [address] [address] Rich Cutler TSHon 09-23-2022 TSH 3.915 uIU/mL Critically high 0.358-3.740 [facility] Comment on above: Performed By: #### L IPID, TSH, T7, CMP #### [facility] [address] [place] [address] Dr. Rich Cutler Physician Referralon 022 Physician Referral [phone] 00 [id number] Normal [facility] Lipid Panelon 10-07-2021 Cholesterol [Mass/Vol] 205 mg/dL High 140-200 [facility] Comment on above: Result Comment: Chol less than 200 mg/dl low risk Chol 201-239 mg/dl borderline risk Chol 240 mg/dl and greater high risk Performed By: #### L IPID, [id number], TSH3 [id number] #### [facility] [address] Cholesterol in HDL [Mass/Vol] 25 mg/dL Low 35-85 [facility] Comment on above: Result Comment: HDL CHOL ATP-III CLASSIFICATION Cardiovascular Risk HDL > or equal to 60 mg/dL LOW HDL < 40 mg/dL HIGH Performed By: #### L IPID, [id number], TSH3 wRFLX #### [facility] [address] Cholesterol.total/C holesterol in HDL [Mass ratio] 8.2 {ratio} Normal <5.0 [facility] Comment on above: Performed By: #### L IPID, [id number], TSH3 wRFLX #### [address] LDL Cholesterol,Calcula coby 160 mg/dL High 0-100 [facility] Comment on above: Result Comment: LDL ATP III CLASSIFICATION LDL less than 100 mg/dL Optimal LDL 100-129 mg/dL Near or above optimal LDL 130-159 mg/dL Borderline high LDL 160-189 mg/dL High LDL greater than 189 mg/dL Very high Performed By: #### L IPID, [id number], TSH3 wRFLX #### [address] Triglyceride w/Reflex 100 mg/dL Normal 35-149 [facility] Comment on above: Result Comment: TRIG ATP III CLASSIFICATION TRIG less than 150 mg/dL Normal TRIG 150-199 mg/dL Borderline high TRIG 200-500 mg/dL High TRIG greater than 500 mg/dL Very high Standard traceable to the Center for Disease Conrtrol and Prevention (CDC) test method. Performed By: #### L IPID, [id number], TSH3 wRFLX #### [facility] [address] [place] [address] VLDL CHOLESTEROL 20 mg/dL Normal [facility] Comment on above: Performed By: #### L IPID, [id number], TSH3 wRFLX #### [facility] [address] [place] [address] Thyroid Stim Hormone w/Rflxo n 10-07-2021 Thyroid Stim Hormone w/Rflx 3.27 u[iU]/mL Normal 0.45-5.33 [facility] Comment on above: Performed By: #### L IPID, [id number], TSH3 wRFLX #### [facility] [address] [place] [address] [facility] Vitamin D 25 Hydroxy Totalon 10-07-2021 Vitamin [...] practice guideline. JCEM. 2010; 96(7):1911-30. PERFORMED BY: [place] [address] PATHOLOGIST FLANGING ROLL OPERATOR SILVESTRE SCHULER M.D. Performed By: #### L IPID, [id number], TSH3 wRFLX #### [facility] [address] [place] [address] [facility] Vital Signs Date Time Vital Sign Value Performing Clinician Deidre gganon 03-03-2025 11:02-0400 Body height 160.02 cm [facility] 03-03-2025 11:02-0400 Body mass index (BMI) [Ratio] 35.6 kg/m2 [facility] 03-03-2025 11:02-0400 Body temperature 97.8 [degF] [facility] 03-03-2025 11:02-0400 Body weight 91.34 kg [facility] 03-03-2025 11:02-0400 Diastolic blood pressure 69 mm[Hg] [facility] 03-03-2025 11:02-0400 Heart rate 82 /min [facility] 03-03-2025 11:02-0400 Respiratory rate 18 /min [facility] 03-03-2025 11:02-0400 SaO2% (BldA) [Mass fraction] 96 % [facility] 03-03-2025 11:02-0400 Systolic blood pressure 108 mm[Hg] [facility] 03-02-2025 09:18-0400 Body height 162.6 cm Farzana Ely EXPORT FREIGHT MANAGER-GARMENT FOLDER Work Phone: [facility] [employer] [facility] 03-02-2025 09:18-0400 Body mass index (BMI) [Ratio] 34.81 kg/m2 Farzana Ely EXPORT FREIGHT MANAGER-GARMENT FOLDER Work Phone: [facility] [employer] [facility] 03-02-2025 09:18-0400 Body weight 91.99 kg Farzana Ely EXPORT FREIGHT MANAGER-GARMENT FOLDER Work Phone: [facility] [employer] [facility] 03-02-2025 09:18-0400 Diastolic blood pressure 68 mm[Hg] Farzana Ely EXPORT FREIGHT MANAGER-GARMENT FOLDER Work Phone: [facility] [employer] [facility] 03-02-2025 09:18-0400 Systolic blood pressure 118 mm[Hg] Farzana Ely EXPORT FREIGHT MANAGER-GARMENT FOLDER Work Phone: [facility] [employer] [facility] 10-06-2022 15:36-0500 Blood Pressure Location Umm LANDON [facility] [place] 10-06-2022 15:36-0500 Diastolic blood pressure 86 mm[Hg] Umm LANDON [facility] [place] 10-06-2022 15:36-0500 Heart rate 72 /min Umm LANDON [facility] [place] 10-06-2022 15:36-0500 Respiratory rate 16 /min Umm LANDON [facility] [place] 10-06-2022 15:36-0500 Systolic blood pressure 126 mm[Hg] Umm LANDON [facility] [place] Encounters Encounter Date Encounter Type Care Provider Facility Start: 05-14-2025 End: 05-14-2025 ambulatory [facility] Start: 04-23-2025 End: 04-23-2025 ambulatory [facility] Start: 04-10-2025 End: 04-10-2025 ambulatory [facility] Start: 03-03-2025 End: 03-03-2025 ambulatory [facility] Work Phone: Start: 03-03-2025 End: 03-03-2025 Patient encounter procedure [facility] Work Phone: Start: 03-02-2025 End: 03-02-2025 ambulatory FARZANA M [facility] Start: 03-02-2025 End: 03-02-2025 Office outpatient visit 15 minutes Farzana Muro [facility] EXPORT FREIGHT MANAGER-GARMENT FOLDER Work Phone: [facility] Comment on above: Genitourinary syndro me of menopause (Primary Dx); PCB (post coital bleeding) Start: 02-26-2025 End: 02-26-2025 ambulatory [facility] Start: 02-07-2025 End: 02-07-2025 ambulatory [facility] Start: 01-09-2025 End: 01-09-2025 ambulatory [facility] Start: 01-02-2025 End: 01-02-2025 ambulatory NONA [facility] Start: 10-26-2024 End: 10-26-2024 ambulatory [facility] Start: 10-03-2024 End: 10-03-2024 ambulatory [facility] Start: 09-04-2024 End: 09-04-2024 ambulatory [facility] Start: 08-29-2024 End: 08-29-2024 ambulatory [facility] Start: 08-04-2024 End: 08-04-2024 ambulatory [facility] Start: 07-20-2024 ambulatory MOHAMED OMBALLI [facility] Start: 07-20-2024 ambulatory [facility] Start: 07-18-2024 ambulatory [facility] Start: 07-18-2024 End: 07-18-2024 Emergency department patient visit HERMINIA JULIAN [facility] Start: 07-18-2024 End: 07-18-2024 ambulatory [facility] Start: 07-11-2024 Evaluation and manag ement of inpatient [facility] Start: 07-11-2024 Emergency department patient visit FEDERICA ANDERSON [facility] Start: 07-11-2024 End: 07-12-2024 Evaluation and management of inpatient JOSE BETANCUR [facility] Start: 07-10-2024 End: 07-10-2024 ambulatory [facility] Start: 06-30-2024 Evaluation and manag ement of inpatient [facility] Start: 06-30-2024 Evaluation and manag ement of inpatient [facility] Start: 06-29-2024 End: 07-01-2024 Evaluation and management of inpatient [facility] Start: 06-21-2024 End: 06-21-2024 [facility] Start: 05-26-2024 End: 05-26-2024 ambulatory [facility] Start: 11-26-2022 Encounter for preprocedural laboratory examination DR UMM Carter [facility] Start: 11-25-2022 End: 11-26-2022 ambulatory Umm LANDON Facility:CD:[id number] Start: 11-20-2022 End: 11-21-[address] UMM Carter Facility: Start: 11-20-2022 End: 11-21-2022 Encounter for preprocedural laboratory examination DR UMM Carter Facility:[facility] Start: 10-06-2022 End: 10-07-2022 ambulatory [facility]mm [facility]ANDON [facility] Start: 10-06-2022 End: 10-06-2022 Patient encounter procedure Umm LANDON [facility] Start: 10-02-2022 End: 10-03-[address] KENDRA MORAN . Facility: Start: 09-30-2022 End: 10-01-[address] KENDRA MORAN . Facility: Start: 09-28-2022 Encounter for genera l adult medical examination without abnormal findings DR KENDRA MORAN . [facility] Start: 09-24-2022 End: 09-24-2022 ambulatory [...] stent Umm JACQUESL Bilateral tubal ligation Ad hawill JACQUESL Catheterization of l eft heart Umm JACQUESL Cholecystectomy Umm GEORGIEL Cystoscopic insertio n of ureteric stent Umm JACQUESL Dilation and curetta ge of uterus Umm JACQUESL Vaginal hysterectomy Umm NILL Plan of Treatment Date Care Activity Detail Author Start: 03-02-2026 Adult BMI Screening Adult BMI Screening [facility] Start: 03-02-2026 Tobacco Screening Tobacco Screening [facility] Start: 07-23-2025 Influenza vaccination Influenza Vaccine [facility] Start: 06-01-2025 End: 06-01-2025 Patient encounter procedure 06/01/2025 1:00 PM EDT Office Visit [facility] [address] [place] [id number] Afsaneh Jacome, EXPORT FREIGHT MANAGER-GARMENT FOLDER [address] [facility] [place] [address] [facility] Start: 07-23-2024 COVID-19 Vaccine ( season) COVID-19 Vaccine ( season) [facility] Start: 2014 Administration of varicella zoster vaccine Zoster (Shingles) Vaccine (1 of 2) [facility] Start: 1983 DTaP,Tdap and Td Vaccines (1 - Tdap) DTaP,Tdap and Td Vaccines (1 - Tdap) [facility] Start: 1982 Adult BMI Follow Up Plan Adult BMI Follow Up Plan [facility] Start: 1976 Depression Screening Depression Screening [facility] Immunizations Immunization Date Immunization Notes Care Provider Fa cili 11-07-2021 influenza virus vaccine, unspecified formulation Farzana Ely EXPORT FREIGHT MANAGER-GARMENT FOLDER Work Phone: [facility] 04-14-2021 SARS-CoV-2 (COVID-19 ) mRNA BNT-162b2 vax Umm LANDON [facility] [place] 03-11-2021 SARS-CoV-2 (COVID-19 ) mRNA BNT-162b2 vax Umm GEORGIEL [facility] [place] NEGATED: Highlighted row has not occurred!10-07-2021 influenza, injectable, quadrivalent, preservative free [facility] Payers Date Payer Category Payer Medicaid [id number] 2022 Medicaid [id number] 2019 Private Health Insurance [id number] 2016 Unknown [id number] 1964 Unknown [id number] 2.16.8 [id number] 1964 Unknown [id number] 2.16.8 [id number] 1964 Unknown [id number] 2.16.84 [id number] 1964 Unknown [id number] 2.16.84 [id number] 1964 Unknown [id number] 2.16.84 [id number] 1964 Unknown [id number] 2.16.84 0.1.569996.3.579.2.593 1964 Unknown [id number] 2.16.84 0.1.504647.3.579.2.593 1964 Unknown [id number] 2.16.84 [id number] 1964 Unknown [id number] 2.16.84 0.1.108657.3.579.2.593 1964 Unknown [id number] 2.16. [id number] 1964 Unknown [id number] 2.16. [id number] 1964 Unknown [id number] 2.16.8 [id number] 1964 Unknown [id number] 2.16.8 [id number] 1959 Self-pay [id number] 1959 Unknown [id number] Social History Date Type Detail Facility Start: 10-06-2022 End: 03-02-2025 Tobacco smoking status Ex-smoker (finding) [facility] Tobacco smoking status Never [facility] Start: 01-02-2021 End: 03-02-2025 Sex Assigned At Female Ang Boyd [facility] Start: 10-07-2021 History of tobacco use [facility] History of tobacco use Cigarette Smoker [employer] [facility] Start: 01-02-2021 End: 03-02-2025 Cigarettes smoked current (pack per day) - Reported 1 [facility] Start: 03-02-2025 Tobacco use and exposure Smokeless tobacco non-user [facility] Start: 03-02-2025 Alcoholic beverage intake Ex-drinker (finding) [facility] Start: 1965 Sex assigned at Not on file [employer] [facility] Start: 06-27-2015 End: 03-03-2025 Sex Female (finding) [facility] Start: 1965 Sex Assigned At Female F [facility] Functional Status Date Assessment Result Facility 10-06-2022 Functional Status N/A [facility] Clinical Notes 10-11-2022 to 05-14-2025 Farzana Ely, EXPORT FREIGHT MANAGER-GARMENT FOLDER - 03/02/2025 8:45 AM EDTPatient Instructions Note Date & Type Note Facility 05-14-2025 Note [place] [facility] Subjective Aby Madrigal is a 59 y.o. year old female patient being seen for a follow up s/p [facility] ER visit. Patient states she was in the ER for chest discomfort. Patient states since then she has been feeling pretty good. Patient state Dr. Moran made changes to her medication. Patient states she hasn't followed through with the changes due to wanting to consult with cardiology before she changes medications. Patient states Dr. Moran wants to cut her spirolactone in half. Dr. Moran want Isosorbide added in the Am. Patient Active Problem List Diagnosis BV (bacterial vaginosis) GERD (gastroesophageal reflux disease) Essential hypertension Sepsis ([facility]/HCC) TIA (transient ischemic attack) QURESHI (dyspnea on exertion) Hyperlipidemia Murmur, heart Anxiety Type 2 diabetes mellitus without complication, without long-term current use of insulin ([facility]) Chest pain Elevated troponin Hypomagnesemia NSTEMI (non-ST elevated myocardial infarction) (CMS/HCC) Hypokalemia Coronary artery disease involving [place] coronary artery of [place] heart without angina pectoris Depression, major, severe [...] on 01/31/2025 she was evaluated at the [facility] because of chest pain. Workup was negative. She was discharged home. She is also following with endocrinology regarding adrenal adenoma. She underwent bilateral adrenal vein sampling and was seen in follow-up with endocrinology who did not favor adrenalectomy and favored medical therapy. She was given spironolactone. At visit of 04/23/2025 I asked her to take it 25 mg once daily. Today she is seen after presenting to the emergency room on 05/09/2025 with chest pain. She reports that the chest pain was on the left side of the chest and it kind of built up over time. When she arrived to the emergency room she had 2 out of 10 chest pain. She was admitted and was observed and her troponin was negative. Her NT proBNP was negative. She was discharged home and is seen today in follow-up. She reports that since then she has not had recurrence of chest pain. Today she feels good. Dr. Kendra Moran her PCP wanted her to move isosorbide mononitrate to the morning and reduce the spironolactone to 12.5 mg once daily. Review of Systems Cardiovascular: Positive for chest pain. Palpitations: not a lot . Neurological: Positive for headaches (occasional.). All other systems reviewed and are negative. Objective Visit Vitals BP 113/62 (BP Location: Right arm, Patient Position: Sitting) Pulse 70 Ht 1.6 m (5' 3 ) Wt 88 kg (194 lb) SpO2 94% BMI 34.37 kg/m??? OB Status Postmenopausal Smoking Status Former BSA 1.98 m??? Physical Exam Constitutional: Appearance: She is well-developed. She is obese. She is not ill-appearing. HENT: Head: Normocephalic and (more content not included)... [facility] 04-23-2025 Note [place] [facility] Subjective Aby Madrigal is a 59 [...] infarction) (CMS/HCC) Hypokalemia Coronary artery disease involving [place] coronary artery of [place] heart without angina pectoris Depression, major, severe [...] on 01/31/2025 she was evaluated at the [facility] because of chest pain. Workup [...] or rales. Chest: (more content not included)... [facility] 04-10-2025 Note REASON FOR VISIT + H [...] metoprolol - Jun 2019 CT A/P in [place], [place] performed for abd pain, incidentally detected [...] (CMS/HCC) Past Surgical History: Procedure Laterality Date CARDIAC [...] EC tablet, [place] (more content not included)... [facility] 03-02-2025 History of Present illness Narrative Aby [...] Anxiety GERD (gastroesophageal reflux disease) Heart attack ([facility]) 06/29/2024 Hypertension MEDS Current Outpatient Medications Medication [...] Ramos 03/02/25 1132 documented in this encounter [employer] [facility] 03-02-2025 Instructions ELVIN Ramos - 03/02/2025 [...] labia. [facility] [place] [facility] Subjective Aby Madrigal is a 59 [...] infarction) (CMS/HCC) Hypokalemia Coronary artery disease involving [place] coronary artery of [place] heart without angina pectoris Depression, major, severe [...] on 01/31/2025 she was evaluated at the [facility] because of chest pain. Workup [...] Normal heart so (more content not included)... [facility] 02-07-2025 Note IR VENOGRAPHY VENOUS SAMPLE Procedure: [...] advanced into the IVC and a 5 Setswana vascular sheath was placed. Selective catheterization of [...] Gage Núñez MD on 02/07/2025 10:05 PM [facility] 01-18-2025 Note [facility], states she called [facility] to schedule the referral Dr. Christie had sent over, however no referral was received. Manager Behavioral faxed referral and recent visit note to [phone]. [facility] 01-09-2025 Note REASON FOR VISIT + H [...] metoprolol - Jun 2019 CT A/P in [place], [place] performed for abd pain, incidentally detected [...] (Imdur) 60 mg (more content not included)... [facility] 12-25-2024 Note Manager Behavioral spoke with Remington greene at [facility] regarding this patient. Tram said the way the order was placed through the system they just didn't see it, Tram assured account underwriter that patient was being scheduled at the secondary infusion location. Any questions or concerns call Tram at [phone]. JLR [facility] 10-26-2024 Note Attestation signed by Richa Viramontes MD at 10/27/2024 12:07 PM I have seen and examined the patient. I reviewed the resident/fellow note and I agree with the findings and plan. Richa Viramontes MD Interventional Pulmonary Medicine Pulmonary and Critical Care Medicine [facility] Visit Note Patient: Aby Madrigal Age: 59 y.o. : 1965 Account No.: [id number] Chief complaint: RML nodule HPI Aby Madrigal is a 59 y.o. female with hypertension, CAD status post PCI recently in June 2024, cigarette smoking who is presenting to clinic via telemedicine as a new patient after being referred by Dr. Jarocho Saldaña. Patient reports recent admission to [facility] ICU for hypertensive emergency. This prompted a [...] PFTs on file. CTA chest 04/21/2024 at [facility]: Right middle lobe approximately 1.2 cm solid nodule appreciated Subsequent PET CT 2024 at [facility]: Right middle lobe nodule is faintly [...] pretest probability of (more content not included)... [facility] 10-03-2024 Note REASON FOR VISIT + H [...] metoprolol - CT A/P Jun 2019 in [place], [place] performed for abd pain, incidentally detected [...] Hypertension Obstructive sleep apnea Panic attacks Stroke ([facility]) Past Surgical History: Procedure Laterality Date [...] 25 mg by (more content not included)... [facility] 09-04-2024 Note [place] [facility] Subjective Aby Madrigal is a 59 [...] infarction) (CMS/HCC) Hypokalemia Coronary artery disease involving [place] coronary artery of [place] heart without angina pectoris Depression, major, severe [...] on the weekend Drug use: Never KHLOE Aby is seen in follow up. She [...] and Affect: M (more content not included)... [facility] 07-20-2024 Note Attestation signed by Richa Viramontes [...] Age: 59 y.o. : 1965 Account No.: [id number] Referring physician: Dr. Jarocho Saldaña Chief complaint: RML nodule HPI Aby Madrigal is a 59 y.o. female with hypertension, CAD status post PCI recently in June 2024,, cigarette smoking who is presenting to clinic via telemedicine as a new patient after being referred by Dr. Jarocho Saldaña. Patient reports recent admission to [facility] for hypertensive emergency. This prompted a [...] PFTs on file. CTA chest 04/21/2024 at [facility]: Right middle lobe approximately 1 cm spiculated nodule appreciated Subsequent PET CT 2024 at [facility]: Right middle lobe nodule is faintly [...] alcohol. She reports (more content not included)... [facility] 07-18-2024 Note REASON FOR VISIT + H [...] metoprolol - CT A/P Jun 2019 in [place], [place] performed for abd pain, incidentally detected [...] Hypertension Obstructive sleep apnea Panic attacks Stroke (CMS/[facility]) Past Surgical History: Procedure Laterality Date [...] Rfl: carvedilol (C (more content not included)... [facility] 07-18-2024 Note 07/18/24 1001 Referral Data Referral Source nutrition worker Referral Reason Information Patient Information Primary Caregiver Self Activities of Daily Living Assistive Device Not applicable Living Arrangement (Current/Prior to Hospitalization) Private residence Behavior Oriented Discharge Planning Support Systems Children;Family members Type of Residence Private residence Patient's goal for discharge home Patient recently discharged from [facility] to home. Resides at home alone. Discharge plan is home. [facility] 07-18-2024 Note Patient sent to ED f or hypotension and dizziness/lightheadedness [facility] 07-12-2024 Note Hospital Medicine Discharge Summary Final Discharge Diagnosis: NSTEMI Admission Diagnosis: Hypokalemia [E87.6] NSTEMI (non-ST elevated myocardial infarction) (CMS/HCC) [I21.4] Hypertensive urgency [I16.0] Adenoma of left adrenal gland [D35.02] Resistant hypertension [I1A.0] Atherosclerosis of [place] coronary artery of [place] heart without angina pectoris [I25.10] Coronary artery disease involving [place] coronary artery of [place] heart with unstable angina pectoris (CMS/HCC) [I25.110] Type 2 diabetes mellitus without complication, without long-term current use of insulin ([facility]/HCC) [E11.9] Hospital course: 59yoF with CAD s/p LAD SARKIS 11 days ago who was admitted to [facility] on 07/11 for chest pain. patient initially presented to [facility] for uncomfortable feeling in her chest and was found to have elevated troponins and new ischemic changes on EKG. Infusion and cardiology was consulted transferred to [facility] for further evaluation. Initially the patient had blood pressures up to 192/65 for which home medications were restarted. Troponins at [facility] were negative and there were no EKG changes concerning for ischemia. Echo was performed which showed EF 70 to 75%. she was cleared from cardiology for discharge and had resolved. Surgical, Invasive or Diagnostic Procedures Done During Admission: None Consultations During Admission: Cardiology Dear Dr. Lidia MD, [facility] is advised to follow [...] 07/18/2024 8:20 AM Feng Christie MD [facility] 07/20/2024 1:00 PM Richa Viramontes MD [facility] 09/05/2024 1:00 PM Bijan Licea MD [facility] Your medication list START taking these [...] Medications These medications were sent to [facility]/pharmacy #[id number] [place] [address] isosorbide mononitrate ER 60 mg 24 hr [...] activity In process (more content not included)... [facility] 07-11-2024 Note 07/11/24 1817 Financial Resource Strain [...] place to sleep or slept in a snf (including now)? N Transportation Needs In the [...] How often do you attend catholic or zoroastrian services? Never Do you belong [...] In the past 12 months has the [employer], Non[employer], oil, or water Interventional Imaging threatened to shut off services in your home? 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 Source nutrition worker Referral Reason Psychosocial assessment Patient Information Primary Caregiver Self Accompanied by/Relationship Daughter (Rosita); Lrrsvwma-ae-ype (Yesy) Activities of Daily Living Assistive Device Not applicable Living Arrangement (Current/Prior to Hospitalization) Private residence (Lives at home by herself) Ambulation Independent Dressing Independent Feeding Independent Behavior Oriented (A&Ox4) Communication Can write;Talks;Understands speaking;Understands Scottish;Reads Income Information Income Source Unemployed (receives survivor benefits) Discharge Planning Support Systems Children;Family members (daughter, tplxunwd-tp-one, son) Type of Residence Private residence Will patient need Precert for Post Acute needs? No Patient's goal for discharge Home Does the patient need discharge transport arranged? No Completed social work assessment and SDoH screening. Patient was A&Ox4 at this time. Patient's daughter, Rosita, and patient's qodxjlmw-nl-rjj, Yesy, were currently present at bedside. Patient reported that she lives at home by herself and she identified her support system as her daughter, Rosita, her uxnqeavu-oc-wjb, Yesy, and her son, Elie. Patient endorsed [...] any alcohol consumption or recreational drug use. [facility] 07-11-2024 Note Hospital Medicine History and Physical 07/11/2024 12:19 PM THE HOSPITALIST TEAM PREFERS TO USE [employer] FOR COMMUNICATION 7AM-7PM. IF I DO NOT RESPOND WITHIN 15 MINUTES, PLEASE PAGE ME/CALL THROUGH THE STOCKROOM SUPERVISOR. FROM 7PM-7AM, PLEASE PAGE [phone](COVR) Chief Complaint Chief Complaint Patient presents with [...] ER as a transfer from [facility] for NSTEMI. Patient states that [...] Noted Hypokalemia 07/11/2024 Coronary artery disease involving [place] coronary artery of [place] heart with unstable angina pectoris ([facility]) 07/11/2024 Anxiety 06/30/2024 Type 2 diabetes mellitus without complication, without long-term current use of insulin ([facility]) 06/30/2024 Chest pain 06/30/2024 Elevated troponin 06/30/2024 Hypertensive urgency 06/30/2024 Hypomagnesemia 06/30/2024 QURESHI (dyspnea on exertion) 05/26/2024 Atherosclerosis of [place] coronary artery of [place] heart without angina pectoris 05/26/2024 Hyperlipidemia 05/26/2024 Murmur, heart 05/26/2024 Sepsis ([facility]) 07/14/2019 BV (bacterial vaginosis) 10/18/2017 GERD (gastroesophageal reflux disease) 10/18/2017 Essential hypertension 10/18/2017 TIA (transient ischemic attack) 10/18/2017 NSTEMI (non-ST elevated myocardial infarction) ([facility]) 06/29/2024 Assessment and Plan NSTEMI CAD, [...] for GI prophylaxis (more content not included)... [facility] 07-10-2024 Note [facility] Note Reason for cardiology [...] Take 1 tablet (more content not included)... [facility] 07-01-2024 Note Hospital Medicine Discharge Summary Final [...] presents a direct mission from [facility] with a chief complaint of [...] her EKG. She went to [facility] for the symptoms. Labs were [...] - Continue metformin. Dear Dr. Lidia MD, [facility] is advised to follow [...] Medications These medications were sent to [facility]/pharmacy #[id number] [place], [place] - [address] [address] carvedilol 25 mg tablet cloNIDine 0.1 mg [...] days Lab Units (more content not included)... [facility] 07-01-2024 Note [facility] CARDIOLOGY INPAT IENT PROGRESS NOTE Reason for follow up: NSTEMI Subjective Aby S Strausbaugh, a 59 y.o. female patient, is transferred from [facility] for continuity of care. Patient reports that 3 days ago, she woke up in the mid of the night with indigestion, and a feeling fullness, but no pressure like chest pain. She presented to [facility], where she was found to [...] 0.56 06/29/2024 E (more content not included)... [facility] 06-30-2024 Note Patient: Aby antony Procedure Information Date/Time: 06/30/24 1600 Procedure: Coronary angiography (Bilateral) Location: [facility] / [facility] (Cath) Providers: Brunilda Cuellar MD [...] Plan discussed with attending. Additional Equipment Requests [facility] 06-30-2024 Note 06/30/24 1446 Referral Data Referral Source nutrition worker Referral Reason Follow up;Information Patient Information Primary Caregiver Self Accompanied by/Relationship daughters at bedside Activities of Daily Living Assistive Device Not applicable Living Arrangement (Current/Prior to Hospitalization) Private residence (three to four stairs) Ambulation Independent Dressing Independent Feeding Independent Behavior Oriented Communication Talks;Understands speaking;Understands Scottish Discharge Planning Support Systems Children (daughters will [...] questions for social work at this time. [facility] 06-30-2024 Note 06/30/24 1431 Admission Assessment Questions [...] Not Interested Does the patient have a mattress spring encaser assigned to them through their insurance? No [...] No Do you understand the benefits of [email or web address]? Yes Were you able to send link and activate [employer]? No [facility] 06-30-2024 Note Case was discussed w ith the SALVADOR on 06/29/2024. I agree with the history, physical, assessment, and plan of care. I discussed the findings and therapeutic plan. I agree with the documentation, except for any updates below. Maurice Nogueira MD [facility] 06-30-2024 Note Hospital Medicine History and Physical 06/30/2024 1:15 AM THE HOSPITALIST TEAM PREFERS TO USE [employer] CHAT FOR COMMUNICATION 7AM-7PM. IF I DO NOT RESPOND WITHIN 15 MINUTES, PLEASE PAGE ME/CALL THROUGH THE STOCKROOM SUPERVISOR. FROM 7PM-7AM, PLEASE PAGE [phone](COVR) Chief Complaint Direct admission from [facility] with CP History of Present Illness Aby Madrigal is an 59 y.o. female who came from home with past medical history of anxiety, DM2, hypertension, IBS presents a direct mission from [facility] with a chief complaint of [...] her EKG. She went to [facility] for the symptoms. Labs were [...] complication, without long-term current use of insulin ([facility]) 06/30/2024 Chest pain 06/30/2024 Elevated troponin 06/30/2024 Hypertensive urgency 06/30/2024 QURESHI (dyspnea on exertion) 05/26/2024 Atherosclerosis of [place] coronary artery of [place] heart without angina pectoris 05/26/2024 Hyperlipidemia 05/26/2024 Murmur, heart 05/26/2024 Sepsis ([facility]) 07/14/2019 BV (bacterial vaginosis) 10/18/2017 GERD (gastroesophageal reflux disease) 10/18/2017 Essential hypertension 10/18/2017 TIA (transient ischemic attack) 10/18/2017 Assessment and Plan Aby Madrigal is an 59 y.o. female who came from home with past medical history of anxiety, DM2, hypertension, IBS presents a direct mission from [facility] with a chief complaint of [...] dysfunction on echoc (more content not included)... [facility] 06-21-2024 Note [place] [facility] Subjective Aby Madrigal is a 59 y.o. year old female patient being seen for follow up [facility] ED per Dr. Moran. She has [...] attack) QURESHI (dyspnea on exertion) Atherosclerosis of [place] coronary artery of [place] heart without angina pectoris Hyperlipidemia Murmur, heart [...] Judgment: Judgment no (more content not included)... [facility] 05-26-2024 Note [facility] Note Reason for cardiology [...] PSYCH: appropriate mood, (more content not included)... [facility] 11-25-2022 Note OPERATIVE NOTE OPERATION DATE: 11/25/2022 [...] 10 years. CC: Kendra Moran M.D. [facility] 10-11-2022 Note Chief Complaint consultation [...] 1 tab(s), Oral, (more content not included)... [facility] Comment on above: Result Comment: Elec tronically Signed By: DIPESH BUCKNER, Umm Michael\alana\Date and Time Signed: 10/11/22 11:01 EST Evaluation + Plan note No data available for this section General Surgery [place] Evaluation note Diagnosis Genitourinary syndrome of menopause- Primary PCB (post coital bleeding) Postcoital bleeding documented in this encounter [facility] assessment information available [facility] Work Phone: Hospital Discharge instructions No data available for this section General [facility] [place] Progress note No data available for this section General [facility] [place] Summary Purpose Family History No Family History [...] section and content) DATE CREATED AUTHOR 12/17/2021 [facility] DATE CREATED AUTHOR AUTHOR'S ORGANIZ ATION 12/16/2022 [facility] DATE CREATED AUTHOR AUTHOR'S ORGANIZ ATION 03/26/2023 [facility] DATE CREATED AUTHOR AUTHOR'S ORGANIZ ATION 02/11/2025 [facility] DATE CREATED AUTHOR AUTHOR'S ORGANIZ ATION 03/04/2025 [facility] DATE CREATED AUTHOR AUTHOR'S ORGANIZ ATION 05/15/2025 [facility] Patient Care team informatio n (unrecognized section and content) Driver Wheelchair Relationship Specialty Start Date End Date Kendra [...] BE BASED ON THE PRIMARY CLINICAL RECORDS. [facility]. provides no warranty or guarantee of the accuracy or completeness of information in this document.
--- NOTE | 2025-05-17 22:41 | ECG_ITS ---
[facility] Test Date: 2025-05-17 Pat Name: MILAN RASMUSSEN Department: Room: - Gender: Female Technician Preventative Medicine: : 1965 Requested By: [id number] Order Number: [id number] Reading MD: GOMEZ JAY M.D. Measurements Intervals [place] Rate: 61 P: 53 UT: 182 QRS: 30 QRSD: 92 T: 150 QT: 390 QTc: 393 Interpretive Statements 1100 Sinus rhythm 4068 Nonspecific [place] abnormality 9130 borderline ECG Compared to ECG 05/09/2025 15:57:14 No significant changes Electronically Signed On 05-19-2025 11:58:15 EDT by GOMEZ JAY M.D.
--- NOTE | 2025-05-17 23:01 | ED.GENADUL1 ---
HPI HPI - General Adult General Chief complaint: Recheck/Abnormal Lab/Rx Stated complaint: HIGH BLOOD PRESSURE Time Seen by Provider: 05/17/25 22:26 Source: patient Mode of arrival: walk-in Limitations: no limitations History of Present Illness HPI narrative: This 59-year-old female who is on several blood pressure medications and has a history of coronary arteries presents for evaluation of elevated blood pressure at home and states that her tongue was curling and her daughter thought that she was stuttering. The patient was recently admitted to this hospital for chest pain and had a cardiac workup. She states that her spironolactone dose was decreased at that time. She took her blood pressure tonight and it was 180 systolic. She does not take any additional blood pressure medications although she does have hydralazine to take if her blood pressure is greater than 180 but instead decided to come to the emergency department. She states that she felt like her tongue was curling. Her daughter stated to the triage nurse that she also seemed to be stuttering. She states that when she had a TIA in the past she had numbness on the right side of her tongue and the right side of her face. She does not have any issues with her tongue or her face at this time. Her blood pressure shortly after arrival was 150/70. She is not having any chest pain or shortness of breath. She has no abdominal pain. She has chronic lower extremity swelling specifically of the left leg where she has a Alexandre's cyst. Related Data Home Medications ?Medication ?Instructions ?Recorded ?Confirmed aspirin 81 mg capsule 81 mg PO DAILY 04/22/24 05/09/25 clopidogrel 75 mg tablet 75 mg PO DAILY 07/01/24 05/09/25 quetiapine 100 mg tablet (Seroquel) 100 mg PO .QHS 07/24/24 05/09/25 rosuvastatin 40 mg tablet 40 mg PO DAILY 07/24/24 05/09/25 isosorbide mononitrate 60 mg 60 mg PO BID 07/31/24 05/09/25 tablet,extended release 24 hr lorazepam 1 mg tablet (Ativan) 1 mg PO Q8H anxiety 07/31/24 05/10/25 hydralazine 50 mg tablet 50 mg PO TID PRN hypertension 09/15/24 05/09/25 carvedilol 25 mg tablet 12.5 mg PO Q8H 05/09/25 05/10/25 magnesium oxide 400 mg (241.3 mg 400 mg PO .QD 05/10/25 05/10/25 magnesium) tablet Previous Rx's ?Medication ?Instructions ?Recorded canagliflozin 300 mg tablet 300 mg PO DAILY #30 tabs 11/13/24 (Invokana) pantoprazole 40 mg tablet,delayed 40 mg PO BID #60 tabs 11/13/24 release (Protonix) carvedilol 25 mg tablet 37.5 mg (1.5 x 25 mg) PO BID #90 05/10/25 tabs spironolactone 25 mg tablet 12.5 mg (1/2 x 25 mg) PO QD #30 05/10/25 tabs Allergies Allergy/AdvReac Type Severity Reaction Status Date / Time lisinopril Allergy Severe Cough Verified 05/17/25 22:16 amlodipine Allergy Mild Headache Verified 05/17/25 22:16 alprazolam (From Xanax) AdvReac Severe Watery Eye Verified 05/17/25 22:16 Opioid HPI Opioid Management Most Recent Opioid Data: Last Pain Scale 2 05/10/25, 08:38 Last ORT Total Score 0 05/09/25, 22:54 Last ORT Risk Category Low Risk 05/09/25, 22:54 Review of Systems ROS Status of ROS 10 or more systems reviewed and unremarkable except as noted in history and below [facility] Medical History Elevated troponin ?R79.89 - Other specified abnormal findings of blood chemistry (ICD-10) Hypertensive emergency ?I16.1 - Hypertensive emergency (ICD-10) Acute non-ST elevation myocardial infarction (NSTEMI) ?I21.4 - Non-ST elevation (NSTEMI) myocardial infarction (ICD-10) Chest pain ?R07.9 - Chest pain, unspecified (ICD-10) CAD (coronary artery disease) ?I25.10 - Atherosclerotic heart disease of makah coronary artery without angina pectoris (ICD-10) Hypertensive urgency ?I16.0 - Hypertensive urgency (ICD-10) HTN (hypertension) ?I10 - Essential (primary) hypertension (ICD-10) Hypertensive urgency ?I16.0 - Hypertensive urgency (ICD-10) Chest pain ?R07.9 - Chest pain, unspecified (ICD-10) Anxiety ?F41.9 - Anxiety disorder, unspecified (ICD-10) HTN (hypertension) ?I10 - Essential (primary) hypertension (ICD-10) Hypokalemia ?E87.6 - Hypokalemia (ICD-10) Hypertension, uncontrolled ?I10 - Essential (primary) hypertension (ICD-10) Chest pain ?R07.9 - Chest pain, unspecified (ICD-10) NSTEMI (non-ST elevated myocardial infarction) ?I21.4 - Non-ST elevation (NSTEMI) myocardial infarction (ICD-10) Shortness of breath ?R06.02 - Shortness of breath (ICD-10) Headache ?R51.9 - Headache, unspecified (ICD-10) Elevated d-dimer ?R79.89 - Other specified abnormal findings of blood chemistry (ICD-10) Hypertensive emergency ?I16.1 - Hypertensive emergency (ICD-10) Uncontrolled hypertension ?I10 - Essential (primary) hypertension (ICD-10) Irritable bowel syndrome ?K58.9 - Irritable bowel syndrome without diarrhea (ICD-10) H/O nephrolithotomy with removal of calculi ?Z98.890 - Other specified postprocedural states (ICD-10) ?Z87.442 - Personal history of urinary calculi (ICD-10) Kidney stone ?N20.0 - Calculus of kidney (ICD-10) Sepsis ?A41.9 - Sepsis, unspecified organism (ICD-10) H/O angiography ?Z92.89 - Personal history of other medical treatment (ICD-10) Lung nodule ?R91.1 - Solitary pulmonary nodule (ICD-10) Anxiety ?F41.9 - Anxiety disorder, unspecified (ICD-10) HTN (hypertension) ?I10 - Essential (primary) hypertension (ICD-10) Diabetes ?E11.9 - Type 2 diabetes mellitus without complications (ICD-10) TIA (transient ischemic attack) ?G45.9 - Transient cerebral ischemic attack, unspecified (ICD-10) Surgical History H/O heart artery stent ?Z95.5 - Presence of coronary angioplasty implant and graft (ICD-10) History of appendectomy ?Z90.49 - Acquired absence of other specified parts of digestive tract (ICD-10) H/O tubal ligation ?Z98.51 - Tubal ligation status (ICD-10) History of cholecystectomy ?Z90.49 - Acquired absence of other specified parts of digestive tract (ICD-10) Family History Mother Family history of cancer Father MVA (motor vehicle accident) Brother Family history of stroke Social History Within the past year, how often did you have a drink containing alcohol: never Within the past year, how often did you have six or more drinks on one occasion: never Score interpretation: A score less than 3 is consistent with normal alcohol consumption. Smoking status: Former smoker Second hand tobacco smoke exposure: No Non-prescribed substance use: denies use Previous occupational history: no Known occupational exposures/hazards: No Highest level of school completed/degree received: high school graduate Do you want help with school or training: No Are you now , , , , never or living with a partner: In a typical week, how many times do you talk on the telephone with family, friends, or neighbors: 3 or more times per week How often do you get together with friends or relatives: 3 or more times per week How often do you attend shinto or restoration services: never Do you belong to any clubs or organizations such as shinto groups unions, fraternal or athletic groups, or school groups: no Total score: 1 Score interpretation: A score of less than or equal to 1 indicates the most socially isolated. Little interest or pleasure in doing things: not at all Feeling down, depressed, or hopeless: not at all Feel stressed/tense/nervous/anxious/difficulty sleeping: not at all Do you think of yourself as: straight/heterosexual Gender Identity: female Exam Narrative Exam Narrative: Vital signs and Nursing Notes reviewed: Patient is afebrile with normal pulse, initial blood pressure was 180/74, repeat blood pressure is 150/71, she is not hypoxic with pulse ox of 96% on room air General: Awake, alert, oriented, no acute distress, lying comfortably on the stretcher-patient is smiling and laughing and interacting with her daughter, no distress noted HEENT: Normocephalic atraumatic, mucous membranes are moist and pink, eyes are clear, normal conjunctiva, vision is grossly intact, posterior pharynx is normal in appearance. Tongue appears normal to me Neck: Supple, no meningeal signs, no JVD Chest: Lungs are clear to auscultation with good air entry, there is no wheezing rhonchi or rales appreciated no accessory muscle use, patient is speaking in complete sentences-no chest wall tenderness to palpation CVS: Regular rate and rhythm S1-S2, no murmurs rubs or gallops, pulses are brisk and equal bilaterally ABD: Soft, nondistended, nontender, no rebound guarding or rigidity, bowel sounds are normal, no pulsatile masses appreciated Extremities: No calf swelling or tenderness. There is mild tenderness at the posterior aspect of the left knee with some mild edema of the left lower leg, this patient states she had a Alexandre's cyst and this is chronic in nature. Right leg has some mild swelling. 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, negative pronator drift, positive rapid alternating hand movements, upper and lower extremity strength and sensation is intact, NIH stroke scale is 0 Constitutional Vital Signs, click to edit/add: Last Vital Signs Temp 98.3 F 05/17/25 22:17 Pulse 62 05/18/25 00:00 Resp 05/17/25 23:50 BP 178/74 H 05/18/25 00:00 Pulse Ox 96 05/18/25 00:00 O2 Del Method Room Air 05/17/25 22:17 Course Vital Signs Vital signs: Vital Signs Blood Pressure 180/74 H 05/17/25 22:11 Pulse Oximetry 96 05/17/25 22:11 Temperature 98.3 F 05/17/25 22:17 Pulse Rate 62 05/18/25 00:00 Respiratory Rate 05/17/25 23:50 Blood Pressure 178/74 H 05/18/25 00:00 Pulse Oximetry 96 05/18/25 00:00 Oxygen Delivery Method Room Air 05/17/25 22:17 Medical Decision Making [facility] Narrative Medical decision making narrative: This 59-year-old female with a history of hypertension and coronary disease presents for evaluation of elevated blood pressure at home. Her daughter also thought that she may be stuttering and the patient states her tongue was curling. She was not stuttering during my exam. Her neuroexam is normal. Her blood pressure initially was in the 180s over 70s. It came down to the 150s systolic before I saw her. She does not have any chest pain or shortness of breath. She was recently admitted for a cardiac workup and her spironolactone dose was cut in half. An EKG was a sinus rhythm at 60 bpm with no acute changes. Cardiac workup was ordered. She has normal white count and hemoglobin. Electrolytes are normal. Troponin is normal. I did not think a chest x-ray was indicated as she is not having any respiratory symptoms and recently was admitted with a workup including that. On reevaluation she has fallen asleep. Her blood pressure is still elevated in the 170s over 80s. I offered her several options for blood pressure control emergency department but she states she just wants to go home and will take a clonidine if she feels the need when she gets home but at this time she feels like she just needs to get some rest and her blood pressure will come down normally. She was encouraged to follow-up closely with her family physician and return to the emergency department for any concerns. Medical Records Medical records reviewed: Yes I reviewed the patient's medical records Lab Data Lab results reviewed: Yes I reviewed the patient's lab results Labs: Lab Results 05/17/25 Range/Units 23:10 WBC 6.7 (4.0-11.0) 10^3/uL RBC 4.26 (4.20-5.40) 10^6/uL Hgb 11.4 L (12.0-16.0) g/dL Hct 35.6 L (36.0-48.0) % MCV 83.6 (81.0-99.0) fL MCH 26.8 (26.7-34.0) pg MCHC 32.0 (29.9-35.2) g/dL RDW 15.8 H (11.0-15.0) % Plt Count 193 (150-450) 10^3/uL MPV 9.7 (9.5-13.5) fL Neut % (Auto) 54.7 (43.0-75.0) % Lymph % (Auto) 34.3 (20.5-60.0) % [place] % (Auto) 7.7 (1.7-12.0) % Eos % (Auto) 2.8 (0.9-7.0) % Baso % (Auto) 0.4 (0.2-2.0) % Neut # (Auto) 3.7 (1.4-6.5) 10^3/uL Lymph # (Auto) 2.3 (1.2-3.8) 10^3/uL [place] # (Auto) 0.5 (0.3-0.8) 10^3/uL Eos # (Auto) 0.2 (0.0-0.7) 10^3/uL Baso # (Auto) 0.0 (0.0-0.1) 10^3/uL Abs Immat Gran (auto) 0.01 (0.00-0.03) 10^3/uL Imm/Tot Granulo (auto) 0.1 (0.0-0.5) % Sodium 144 (136-145) mmol/L Potassium 3.7 (3.5-5.1) mmol/L Chloride 107 (98-107) mmol/L Carbon Dioxide 27.6 (21.0-32.0) mmol/L Anion Gap 13.1 BUN 24.0 H (7.0-18.0) mg/dL Creatinine 0.98 (0.55-1.02) mg/dL Est GFR ( Amer) >60 (>=60 mL/min/1.73m^2) Est GFR (Non-Af Amer) 58 L (>=60 mL/min/1.73m^2) BUN/Creatinine Ratio 24.5 Glucose 108 H (74-106) mg/dL Calcium 9.5 (8.5-10.1) mg/dL Total Bilirubin 0.3 (0.2-1.0) mg/dL AST 16 (15-37) U/L ALT 29 (14-59) U/L Alkaline Phosphatase 70 (46-116) U/L Troponin I High Sens 5.6 (4.0-51.3) pg/mL Total Protein 6.9 (6.4-8.2) g/dL Albumin 3.5 (3.4-5.0) g/dL Globulin 3.4 g/dL Albumin/Globulin Ratio 1.0 ECG Data Attestation: I personally reviewed and interpreted this ECG as follows: (Sinus rhythm at 60 bpm, normal axis, normal intervals, diffuse flattening of the T waves is noted, no ST segment elevation or T wave inversion noted) Discharge Plan Discharge Chief Complaint: Recheck/Abnormal Lab/Rx Clinical Impression: Elevated blood pressure reading Patient Disposition: Home, Self-Care Time of Disposition Decision: 00:24 Condition: Good Prescriptions / Home Meds: No Action aspirin 81 mg capsule 81 mg PO DAILY rosuvastatin 40 mg tablet 40 mg PO DAILY quetiapine [Seroquel] 100 mg tablet 100 mg PO .QHS Rx Instructions: AT HS isosorbide mononitrate 60 mg Tablet Extended Release 24 Hr 60 mg PO BID lorazepam [Ativan] 1 mg tablet 1 mg PO Q8H hydralazine 50 mg tablet 50 mg PO TID PRN (Reason: hypertension) Rx Instructions: States takes it if syst>150 Invokana 300 mg tablet 300 mg PO DAILY Qty: 30 11RF pantoprazole [Protonix] 40 mg tablet,delayed release (DR/EC) 40 mg PO BID Qty: 60 11RF carvedilol 25 mg Tablet 12.5 mg PO Q8H magnesium oxide 400 mg (241.3 mg magnesium) tablet 400 mg PO .QD carvedilol 25 mg Tablet 37.5 mg PO BID Qty: 90 11RF spironolactone 25 mg Tablet 12.5 mg PO QD Qty: 30 11RF clopidogrel 75 mg tablet 75 mg PO DAILY Print Language: Cypriot Instructions: Hypertension (ED) Referrals: Carlito Murillo MD [Primary Care Provider, Family Practice] - 1 week
[2025-05-17 23:18] LABS: Basophils Percent Auto 0.4 % (0.2-2.0); Eosinophils Absolute Auto 0.2 10^3/uL (0.0-0.7); Eosinophils Percent Auto 2.8 % (0.9-7.0); Hematocrit 35.6 % (36.0-48.0); Hemoglobin 11.4 g/dL (12.0-16.0); Immature Granulocytes Abs Auto 0.01 10^3/uL (0.00-0.03); Immature Granulocytes Pct Auto 0.1 % (0.0-0.5); Lymphocytes Absolute Auto 2.3 10^3/uL (1.2-3.8); Lymphocytes Percent Auto 34.3 % (20.5-60.0); Mean Corpuscular Hemoglobin 26.8 pg (26.7-34.0); Mean Corpuscular Volume 83.6 fL (81.0-99.0); Mean Platelet Volume 9.7 fL (9.5-13.5); Monocytes Absolute Auto 0.5 10^3/uL (0.3-0.8); Monocytes Percent Auto 7.7 % (1.7-12.0); Neutrophils Absolute Auto 3.7 10^3/uL (1.4-6.5); Neutrophils Percent Auto 54.7 % (43.0-75.0); Platelet Count 193 10^3/uL (150-450); Red Blood Count 4.26 10^6/uL (4.20-5.40); Red Cell Distribution Width 15.8 % (11.0-15.0); White Blood Count 6.7 10^3/uL (4.0-11.0)
[2025-05-17 23:39] LABS: Alanine Aminotransferase 29 U/L (14-59); Albumin Level 3.5 g/dL (3.4-5.0); Alkaline Phosphatase 70 U/L (46-116); Anion Gap 13.1; Aspartate Amino Transferase 16 U/L (15-37); BUN Creatinine Ratio 24.5; Bilirubin Total 0.3 mg/dL (0.2-1.0); Calcium 9.5 mg/dL (8.5-10.1); Carbon Dioxide 27.6 mmol/L (21.0-32.0); Chloride 107 mmol/L (98-107); Estimated GFR (African America >60 (>=60 mL/min/1.73m^2); Estimated GFR (Non-African Ame 58 (>=60 mL/min/1.73m^2); Globulin 3.4 g/dL; Glucose 108 mg/dL (74-106); Potassium 3.7 mmol/L (3.5-5.1); Sodium 144 mmol/L (136-145); Total Protein 6.9 g/dL (6.4-8.2); Troponin I High Sensitivity 5.6 pg/mL (4.0-51.3)
[2025-05-18] VITALS: BP 178/74; PULSE 62; O2SAT 96
--- NOTE | 2025-05-18 00:30 | PC.NURSE ---
i gave this patient verbal and written discharge orders and this patient voices yes to understanding these. at time of discharge orders this patient nor her daughter voices no concerns, needs and this patient shows no signs of distress
== END 2025-05-18 00:29 | disposition home or self-care (01) ==
PROVIDERS: Emergency Provider Emergency Medicine; PCP Family Medicine
DX: I10 Essential (primary) hypertension (principal); Z86.73 Personal history of transient ischemic attack (TIA), and cerebral infarction without residual deficits; M71.22 Synovial cyst of popliteal space [Baker], left knee; Z79.899 Other long term (current) drug therapy; Z95.1 Presence of aortocoronary bypass graft; Z90.49 Acquired absence of other specified parts of digestive tract; Z98.51 Tubal ligation status; Z87.891 Personal history of nicotine dependence; I25.10 Atherosclerotic heart disease of native coronary artery without angina pectoris
CPT/HCPCS: 36415; 80053; 84484; 85025; 93005; 99285

== ENCOUNTER 2025-06-05 07:54 | Outpatient (OUT) | payer MEDICAID, SELFPAY ==
--- OUTSIDE RECORDS SUMMARY | 2025-06-05 08:18 | XMS_ITS | CCD ---
Author Organization 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 Name Role Phone Kendra Moran Primary Care [...] GARDNER Primary Care Unavailable VIMAL, DR ADELIA Mderano Consulting Unavailable FENG CHRISTIE Attending Unavailable FENG CHRISTIE Referring Unavailable KENDRA MORAN Primary Care Unavailable GAGE NÚÑEZ Admitting Unavailable Kendra Moran MD Primary Care Provider [phone] FARZANA ELY Attending Unavailable KENDRA MORAN Referring Unavailable HOY, KENDRA M Primary Care Unavailable HOY, KENDRA M Referring Unavailable HOY, KENDRA M Primary Care Unavailable HOY, KENDRA M Referring Unavailable HOY, KENDRA M Primary Care Unavailable HORANI, NONA Referring Unavailable HORANI, NONA Referring Unavailable STEPHEN, SAMAR Attending Unavailable JOJAKY, FENG Attending Unavailable MOUKARBEL, GOMEZ Attending Unavailable TOFLINSKI, FEDERICA Referring Unavailable KATKO, JOSE Referring Unavailable HORANI, NONA Admitting Unavailable TAO NASSAR Attending Unavailable HERMINIA JULIAN Attending Unavailable JODEH, FENG Referring Unavailable OMBALLI, RICHA Referring Unavailable OMBALLI, JEFFREYAMED Referring Unavailable MOUKARBEL, GOMEZ Attending Unavailable JOJAKY, FENG Attending Unavailable MOUKARBEL, GOMEZ Attending Unavailable TOFLINSKI, FEDERICA Referring Unavailable JODEH, FENG Attending Unavailable MACMESERET Referring Unavailable MOUKARBEL, GOMEZ Attending Unavailable JODEH, FENG Attending Unavailable JODEH, FENG Attending Unavailable OMBALLI, RICHA Attending Unavailable PIRKLFELECIA Referring Unavailable HOY, KENDRA Referring Unavailable HORANI, NONA Admitting Unavailable HORANI, NONA Attending Unavailable HORANI, NONA Referring Unavailable STEPHEN, BIJAN Attending Unavailable MOUKARBEL, GOMEZ Attending Unavailable OMBALLI, RICHA Attending Unavailable HERMINIA JULIAN Referring Unavailable HORANI, NONA Referring Unavailable Kendra Moran MD Primary Care Provider [phone] Roxanne Jackson APRN Attending Provider Elie Jackson DO Attending Provider Kendra Moran Primary Care Unavailable Elie Jackson Attending Unavailable Elie Jackson Admitting Unavailable Allergies Allergy Classification Reported Allergen(s) Allergy Type Date of Onset Reaction(s) Facility (1 source) No Known Medication Allergies; Translations: [No Known Medication Allergies] Propensity to adverse reactions (disorder) [facility] Repository (5 sources) ALPRAZolam; Translations: [ALPRAZOLAM] Drug Allergy 4 Abnormal Behavior [facility] Repository (9 sources) amLODIPine; Translations: [AMLODIPINE] Drug Allergy 4 Other (See Comments) [facility] Repository (9 sources) Lisinopril; Translations: [LISINOPRIL] Drug Allergy 4 Cough [facility] Repository (4 sources) LORazepam; Translations: [lorazepam] Drug Allergy 5 Unknown Reaction [facility] Medications Current Medications Medication Drug Class(es) Dates Sig (Normalized) Sig (Original) aspirin 81 mg oral tablet (6 sources) Platelet Aggregation Inhibitor, Nonsteroidal Anti-inflammatory Drug Start: 05-21-2025 take 1 tablet by mouth once daily Aspirin 81 mg tablet Active 81 MG PO Daily May 21, 2025 12:00am Complies with drug therapy Start: 09-30-2022 take 1 tablet by dolores th once daily aspirin 325 mg Oral EC Tab 325 mg = 1 tab(s), Oral, Daily, Refills(s) 0 Start Date: 09/30/22 Status: Ordered take 1 tablet by dolores th in the morning aspirin 81 mg Take 1 tablet (81 mg total) by mouth in the morning. Active atorvastatin 40 mg oral tablet (2 sources) HMG-CoA Reductase Inhibitor Start: 10-06-2022 take 1 tablet by mouth once daily atorvastatin 40 mg Tab 40 mg = 1 tab(s), Oral, Daily, Refills(s) 0 Start Date: 10/06/22 Status: Ordered canagliflozin 300 mg oral tablet (6 sources) Sodium-Glucose Cotransporter 2 Inhibitor Start: 05-27-2025 take 1 tablet by mouth in the morning INVOKANA 300 mg tablet Take 1 tablet (300 mg total) by mouth in the morning. 05/27/2025 Active Start: 03-03-2025 Canagliflozin (Invokana) 300 mg tablet Active MG PO March 03, 2025 12:00am Complies with drug therapy Start: 08-23-2024 take 1 tablet by dolores th in the morning INVOKANA 100 mg tablet Take 1 tablet (100 mg total) by mouth in the morning. 08/23/2024 Active carvedilol 25 mg oral tablet (5 sources) alpha-Adrenergic Tammie, beta-Adrenergic Tammie Start: 03-03-2025 Carvedilol 25 mg tablet Active MG PO March 03, 2025 12:00am Complies with drug therapy citalopram 20 mg oral tablet (2 sources) Serotonin Reuptake Inhibitor take 1 tablet by mouth once daily citalopram (CeleXA) 20 mg tablet Take 20 mg by mouth daily. Active clopidogrel 75 mg oral tablet (5 sources) P2Y12 Platelet Inhibitor Start: 03-03-2025 Clopidogrel 75 mg tablet Active MG PO March 03, 2025 12:00am Complies with drug therapy estradiol 0.1 mg/ml vaginal cream (5 sources) Estrogen Start: 03-03-2025 Estradiol 0.01 % (0.1 mg/gram) cream Active VAGINAL March 03, 2025 12:00am Complies with drug therapy Start: 03-03-2025 Estradiol 0.01 % (0.1 mg/gram) [...] Ordered hydrALAZINE hydrochloride 50 mg oral tablet (2 sources) Arteriolar Vasodilator Start: 07-28-2024 take 1 tablet by mouth once daily as needed hydrALAZINE (APRESOLINE) 50 mg tablet Take 1 tablet (50 mg total) by mouth daily as needed (as neded). 07/28/2024 Active hydrOXYzine hydrochloride 25 mg oral tablet (7 sources) Antihistamine Start: 10-06-2021 take 1 tablet by mouth four times daily as needed for anxiety Hydroxyzine Hcl 25 mg tablet Active 25 MG PO Four times daily as needed for Anxiety October 06, 2021 1:00am Complies with drug therapy take 1 tablet by dolores three times daily as needed hydrOXYzine (ATARAX) 25 mg tablet Take 1 tablet (25 mg total) by mouth 3 (three) times a day as needed. Active irbesartan 300 mg oral tablet (5 sources) Angiotensin 2 Receptor Tammie Start: 10-06-2021 take 1 tablet by mouth once daily Irbesartan 300 mg tablet Active 300 MG PO Daily October 06, 2021 1:00am Complies with drug therapy 24 hr isosorbide mononitrate 60 mg extended release oral tablet (5 sources) Nitrate Vasodilator Start: 03-03-2025 take 1 tablet by mouth every twenty-four hours Isosorbide Mononitrate 60 mg tablet extended release 24 hr Active MG PO March 03, 2025 12:00am Complies with drug therapy take 1 tablet by dolores th every twenty-four hours at bedtime isosorbide mononitrate (IMDUR) 60 mg 24 hr tablet Take 1 tablet (60 mg total) by mouth in the morning and at bedtime. Active isosorbide dinitrate 20 mg oral tablet (2 sources) Nitrate Vasodilator Start: 05-21-2025 take 1 tablet by mouth twice daily Isosorbide Dinitrate 20 mg tablet Active 20 MG PO Twice daily May 21, 2025 12:00am allow nitrate-free interval of 12-14 hrs per 24-hr period Complies with drug therapy LORazepam 1 mg oral tablet (10 sources) Benzodiazepine Start: 08-15-2024 LORazepam (ATI VAN) 1 mg tablet Take 1 tablet (1 mg total) by mouth as needed in the morning and 1 tablet (1 mg total) as needed at noon and 1 tablet (1 mg total) as needed in the evening for anxiety. 08/15/2024 Active Start: 10-04-2017 End: 03-03-2025 LORazepam (ATIVAN) 0.5 mg ta blet Take 0.5 mg by mouth as needed. 10/04/2017 Active magnesium oxide 400 mg oral tablet (1 source) take 1 tablet by mouth in the morning magnesium oxide (MAGOX) 400 mg tablet Take 1 tablet (400 mg total) by mouth in the morning. Active metFORMIN hydrochloride 500 mg oral tablet (5 sources) Biguanide Start: Metformin 500 mg tablet Active MG PO March 03, 2025 12:00am Complies with drug therapy 24 hr nicotine 0.875 mg/hr transdermal system (3 sources) Cholinergic Nicotinic Agonist Start: 021 apply 1 dose transdermal route every twenty-four hours Nicotine 21 mg/24 hr Patch 24 Hour Active 1 EACH TRANSDERML Daily October 07, 2021 1:00am Complies with drug therapy pantoprazole 40 mg delayed release oral tablet (5 sources) Proton Pump Inhibitor Start: Pantoprazole 40 mg tablet,delayed release (DR/EC) Active MG PO March 03, 2025 12:00am Complies with drug therapy QUEtiapine 100 mg oral tablet (5 sources) Atypical Antipsychotic Start: Quetiapine 100 mg tablet Active MG PO March 03, 2025 12:00am Complies with drug therapy rosuvastatin calcium 40 mg oral tablet (5 sources) HMG-CoA Reductase Inhibitor Start: End: take 1 tablet by mouth in the morning rosuvastatin (CRESTOR) 40 mg tablet Take 1 tablet (40 mg total) by mouth in the morning. 07/01/2024 10/03/2025 Active spironolactone 25 mg oral tablet (1 source) Aldosterone Antagonist Start: take 1 tablet by mouth in the morning spironolactone (ALDACTONE) 25 mg tablet Take 1 tablet (25 mg total) by mouth in the morning. 05/14/2025 Active Completed/Discontinued Medications Medication Drug Class(es) Dates Sig (Normalized) Sig (Original) amitriptyline hydrochloride 100 mg oral tablet (7 sources) Tricyclic Antidepressant Start: 10-06-2021 End: 05-21-2025 take 1 tablet by mouth once daily at bedtime Amitriptyline 100 mg tablet Discontinued 100 MG PO Daily at bedtime October 06, 2021 1:00am May 21, 2025 2:20pm metoprolol tartrate 100 mg oral tablet (5 sources) beta-Adrenergic Tammie Start: 08-02-2019 End: 03-03-2025 take 1 tablet by mouth twice daily Metoprolol Tartrate 100 mg tablet Discontinued 100 MG PO Twice daily October 06, 2021 1:00am March 03, 2025 10:54am Problems Active Problems Problem Classification Problem Date Documented Da te Episodic/Chronic Acute myocardial infarction (2 sources) Non-ST elevation (NSTEMI) myocardial infarction; Translations: [Non-ST elevation (NSTEMI) myocardial infarction] Onset: 08-20-202 4 Chronic Anxiety disorders (10 sources) Anxiety; Translations: [Panic disorder] Onset: 2 08-02-2019 Chronic Comment on above: Problem List clean-u p per request of Phys. EHR Cmte Complication of device; implant or graft (2 sources) Retained ureteric stent 08-29-2019 Episodic Coronary atherosclerosis and other heart disease (9 sources) Coronary arteriosclerosis; Translations: [Atherosclerotic heart disease of tribe coronary artery without angina pectoris] Onset: 3 09-30-2022 Chronic Diabetes mellitus without complication (2 sources) Type 2 diabetes mellitus without complications; Translations: [Type 2 diabetes mellitus without complications] Onset: 4 Chronic Disorders of lipid metabolism (3 sources) Hyperlipidemia, unspecified; Translations: [HYPERLIPIDEMIA UNSPECIFIED] Onset: 3 Chronic Esophageal disorders (2 sources) Gastroesophageal reflux disease; Translations: [Gastro-esophageal reflux disease without esophagitis] Onset: 7 10-18-2017 Chronic Essential hypertension (7 sources) Hypertensive disorder; Translations: [Essential (primary) hypertension] [...] disorders] Onset: 5 03-02-2025 Chronic Mood disorders (5 sources) Depressive disorder; Translations: [Severe recurrent major [...] disorders (2 sources) Paresthesia 08-02-2019 Episodic Other non-traumatic joint disorders (3 sources) Pain in left knee; Translations: [Left knee pain] Onset: 5 05-18-2025 Episodic Other nutritional; endocrine; and metabolic disorders [...] (2 sources) Inflamed seborrheic keratosis 10-31-2020 Episodic Other upper respiratory infections (4 sources) Viral upper respiratory tract infection; Translations: [Acute upper respiratory infection, unspecified] 03-03-2025 Episodic Peripheral and visceral atherosclerosis (2 sources) Atherosclerosis of renal artery; Translations: [Atherosclerosis of renal artery] Onset: 4 Chronic Residual codes; unclassified (2 sources) Obstructive sleep apnea syndrome 10-30-2020 Chronic Residual codes; unclassified (1 source) Obstructive sleep apnea (adult) (pediatric); Translations: [OBSTRUCTIVE SLEEP APNEA] Onset: 3 Chronic Sprains and strains (4 sources) Strain of knee; Translations: [Strain of unspecified muscle(s) and tendon(s) at lower leg level, left leg, initial encounter] 05-21-2025 Episodic Substance-related disorders (2 sources) Nicotine dependence 12-20-2019 Chronic Transient cerebral ischemia (4 sources) Transient cerebral ischemia; Translations: [Transient cerebral [...] Episodic Inflammatory diseases of female pelvic organs (2 sources) Bacterial vaginosis; Translations: [Acute vaginitis] Onset: 7 10-18-2017 Episodic Other aftercare (1 source) senior living (current) use of aspirin; Translations: [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] Onset: 3 Episodic Other aftercare (1 source) Other shelter (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 therapy; Translations: [OTH SENIOR LIVING CURRENT DRUG THERAPY] Onset: 3 Episodic Other [...] class 2] Onset: 4 Unclassified (1 source) Onset: 5 06-01-2025 Results Test Name Value Interpretation Reference Range Facility X-ray reportOrdered By: Asad White on 05-21-2025 Study report [facility] [address] [place] [address] XRay Report Signed Patient: Aby Madrigal MR#: [id number] : 1965 Acct:[id number] Age/Sex: 59 / F ADM Date: 5 Loc: [facility] Room: Type: [facility] Attending Dr: Elie Jackson DO Copies to: Elie Jackson DO~ Ordering Provider: Elie Jackson DO Date of Service: 05/21/25 XR/XR knee LT 4V*: M25.562 - Pain in left knee ([id number]) XR/XR knee RT 2V: M25.562 - Pain in left knee 4 views left knee HISTORY: Left knee pain for 6 months Mild narrowing of medial compartment. No patellar subluxation. Adequate alignment. No acute displaced fracture. Small joint effusion. Atherosclerosis. XR/XR knee RT 2V IMPRESSION: Mild medial degeneration 2 views of the right knee Adequate alignment. Mild narrowing of the compartment. No patellar subluxation. No acute displaced fracture. IMPRESSION: Mild medial degeneration. Impression dictated by: Marcell White M.D. 05/21/2025 7:01 PM Dictation Location: [place] [address] Transcribed By: [facility] 05/21/25 190 Dictated By: Marcell White DO [id number] Signed By: 05/21/251900 [facility] XR knee LT 4V*on 05-21-2025 XR knee LT 4V* [facility] [address] [place] [address] XRay Report Signed Patient: Aby Madrigal MR#: [id number] : 1965 Acct:[id number] Age/Sex: 59 / F ADM Date: 05/21/25 Loc: [facility] Room: Type: [facility] Attending Dr: Elie Jackson DO Copies to: Elie Jackson DO Ordering Provider: Elie Jackson DO Date of Service: 05/21/25 XR/XR knee LT 4V*: M25.562 - Pain in left knee ([id number]) XR/XR knee RT 2V: M25.562 - Pain in left knee 4 views left knee HISTORY: Left knee pain for 6 months Mild narrowing of medial compartment. No patellar subluxation. Adequate alignment. No acute displaced fracture. Small joint effusion. Atherosclerosis. XR/XR knee RT 2V IMPRESSION: Mild medial degeneration 2 views of the right knee Adequate alignment. Mild narrowing of the compartment. No patellar subluxation. No acute displaced fracture. IMPRESSION: Mild medial degeneration. Impression dictated by: Marcell White M.D. 05/21/2025 7:01 PM Dictation Location: [place] [address] Transcribed By: [facility] 05/21/251900 Dictated By: Marcell White DO 05/21/251858 Signed By: 05/21/251900 Normal [facility] Office Visiton 05-14-2025 Follow-up visit [id number] Aby Madrigal 1965 F Date Provider Department Center 05/14/2025 GOMEZ KENDALL Family History Problem Relation Age of Onset Lung cancer Mother Accidental Father Lung cancer Sister Family Status - Relation Status Age at Mother Father Sister Brother Alive Level of Service:54606 [place] OFFICE/OUTPATIENT ESTABLISHED MOD MDM 30 MIN Normal [facility] 37on 04-23-2025 37 1. Change carvedilol to 1.5 tablets twice daily. 2. Start taking spironolactone half tablet once daily. 3. You can stop clopidogrel in July 2025. [facility] Office Visiton 04-23-2025 Follow-up visit [id number] Aby Madrigal 1965 F Date Provider Department Center 04/23/2025 Octavio-GOMEZ SPENCE RIAZ [place] Family History Problem Relation Age of Onset Lung cancer Mother Accidental Father Lung cancer Sister Family Status - Relation Status Age at Mother Father Sister Brother Alive Level of Service:78145 [place] OFFICE/OUTPATIENT ESTABLISHED MOD MDM 30 MIN [facility] Orders Onlyon 04-20-2025 Orders Only [id number] Aby Madrigal 1965 Date Provider Department Center 04/20/2025 [id number], [facility] RIAZ [place] Family History Problem Relation Age of Onset Lung cancer Mother Accidental Father Lung cancer Sister Family Status - Relation Status Age at Mother Father Sister Brother Alive [facility] 37on 04-10-2025 37 It was good [...] can see where your potassium levels are. [facility] Follow-Upon 04-10-2025 Follow-Up [id number] Aby Madrigal 1965 F Date Provider Department Center 04/10/2025 [id number], WADE [facility] ENDOCR [facility] Family History Problem Relation Age of Onset Lung cancer Mother Accidental Father Lung cancer Sister Family Status - Relation Status Age at Mother Father Sister Brother Alive Level of Service:84590 [place] OFFICE/OUTPATIENT ESTABLISHED MOD MDM 30 MIN Reason for Visit and Comments: Adrenal Problem [420] - Follow up [facility] Influenza virus B Ag [Presen ce] in Upper respiratory specimen by Rapid immunoassayon 03-03-2025 FLUBV Ag IA.rapid Ql (Nph) Negative [facility] No Panel Informationon 03-03 Influenza Type A (Rapid) Negative [facility] POC SARS CoV-2 Antigen Negative [facility] 29on 03-02-2025 29 Addended by: FENG CHRISTIE on: 03/02/2025 09:34 AM Modules accepted: Orders [facility] 36on 03-02-2025 36 Called patient over the phone at 9:10 AM - I have reviewed results from adrenal venous sampling performed on 02/07/2025 at [facility]. Patient met criteria for selectivity index [...] will proceed to surgical evaluation [facility] Orders Onlyon 03-02-2025 Orders Only [id number] Aby Madrigal 1965 F Date Provider Department Center 03/02/2025 [id number], WADE [facility] ENDOCR [facility] Family History Problem Relation Age of Onset Lung cancer Mother Accidental Father Lung cancer Sister Family Status - Relation Status Age at Mother Father Sister Brother Alive [facility] 36on 02-28-2025 36 Results [facility] you[facility] Please call patient and let her know that [facility] Ill be able to discuss the results with her tomorrow Thank you [facility] 36on 02-26-2025 36 Patient called regarding IR venography she had done 02/07. Requesting to discuss results and how she should follow up per Dr. Christie [facility] Office Visiton 02-26-2025 Follow-up visit [id number] Aby Madrigal 1965 F Date Provider Department Center 02/26/2025 Octavio-GOMEZ SPENCE [facility] Jameson [place] Family History Problem Relation Age of Onset Lung cancer Mother Accidental Father Lung cancer Sister Family Status - Relation Status Age at Mother Father Sister Brother Alive Level of Service:61739 [place] OFFICE/OUTPATIENT ESTABLISHED LOW MDM 20 MIN Normal [facility] Telephoneon 02-26-2025 Telephone [id number] Aby Madrigal 1965 F Date Provider Department Center 02/26/2025 Angel-JESSY PORTILLO [facility] NEPH [facility] Family History Problem Relation Age of Onset Lung cancer Mother Accidental Father Lung cancer Sister Family Status - Relation Status Age at Mother Father Sister Brother Alive Normal [facility] Cortisol [Mass/Vol]on 2024 CORTISOL 5.2 ug/dL Normal [facility] Comment on above: Result Comment: Due to the diurnal variation of cortisol levels in normal subjects, all cortisol measurements should be referenced to the time of day of sample collection. AM Cortisol Age>=6 6.7-22.4 ug/dL PM Cortisol Age>=6 <10 ug/dL Performed By: #### 2 143-6 #### [facility] ([id number]) [address] [place] [address], [address] [place] [address] CORTISOL 5.2 ug/dL Normal [facility] Comment on above: Result Comment: Due to the diurnal variation of cortisol levels in normal subjects, all cortisol measurements should be referenced to the time of day of sample collection. AM Cortisol Age>=6 6.7-22.4 ug/dL PM Cortisol Age>=6 <10 ug/dL Performed By: #### 2 143-6 #### [facility] ([id number]) [address], [address] [place] [address] CORTISOL 10.9 ug/dL Normal [facility] Comment on above: Result Comment: Due to the diurnal variation of cortisol levels in normal subjects, all cortisol measurements should be referenced to the time of day of sample collection. AM Cortisol Age>=6 6.7-22.4 ug/dL PM Cortisol Age>=6 <10 ug/dL Performed By: #### 2 143-6 #### [facility] ([id number]) [address], [address] [place] [address] CORTISOL 11.1 ug/dL Normal [facility] Comment on above: Result Comment: Due to the diurnal variation of cortisol levels in normal subjects, all cortisol measurements should be referenced to the time of day of sample collection. AM Cortisol Age>=6 6.7-22.4 ug/dL PM Cortisol Age>=6 <10 ug/dL Performed By: #### 2 143-6 #### [facility] ([id number]) [address], [address] [place] [address] CORTISOL 5.7 ug/dL Normal [facility] Comment on above: Result Comment: Due to the diurnal variation of cortisol levels in normal subjects, all cortisol measurements should be referenced to the time of day of sample collection. AM Cortisol Age>=6 6.7-22.4 ug/dL PM Cortisol Age>=6 <10 ug/dL Performed By: #### 2 143-6 #### [facility] ([id number]) [address], [address] [place] [address] CORTISOL 14.3 ug/dL Normal [facility] Comment on above: Result Comment: Due to the diurnal variation of cortisol levels in normal subjects, all cortisol measurements should be referenced to the time of day of sample collection. AM Cortisol Age>=6 6.7-22.4 ug/dL PM Cortisol Age>=6 <10 ug/dL Performed By: #### 2 143-6 #### [facility] ([id number]) [address] [place] [address] [facility] ORDERon 02-07- 025 TEST NAME AIVC INFERIOR VENA CAVA Normal [facility] Comment on above: Result Comment: Cody ected on 02/07 AT 1204: Previously reported as INFERIOR VENA CAVA TEST RESULT SEE COMMENTS 02/10/2025 12:12 AM Normal [facility] Comment on above: Result Comment: NOTE Test Result Flag Unit RefValue Aldosterone, IVC <4.0 ng/dL Not applicable ADDITIONAL INFORMATION This test was developed and its performance characteristics determined by [facility] in a manner consistent with CLIA requirements. This test has not been cleared or approved by the U.S. Food and Drug Administration. Test Performed by: [facility] - [address] [address] Access Service Representative: Shawanda Jimenez Ph.D.; CLIA# [id number] Result Comment: NOTE Test Result Flag Unit RefValue Aldosterone, LAV 32 ng/dL Not applicable ADDITIONAL INFORMATION This test was developed and its performance characteristics determined by [facility] in a manner consistent with CLIA requirements. This test has not been cleared or approved by the U.S. Food and Drug Administration. Test Performed by: [facility] [place] [address] Access Service Representative: Shawanda Jimenez Ph.D.; CLIA# [id number] Result Comment: NOTE Test Result Flag Unit RefValue Aldosterone, LAV 28 ng/dL Not applicable ADDITIONAL INFORMATION This test was developed and its performance characteristics determined by [facility] in a manner consistent with CLIA requirements. This test has not been cleared or approved by the U.S. Food and Drug Administration. Test Performed by: [facility] [place] [address] Access Service Representative: Shawanda Jimenez Ph.D.; CLIA# [id number] Result Comment: NOTE Test Result Flag Unit RefValue Aldosterone, KELLEY <4.0 ng/dL Not applicable ADDITIONAL INFORMATION This test was developed and its performance characteristics determined by [facility] in a manner consistent with CLIA requirements. This test has not been cleared or approved by the U.S. Food and Drug Administration. Test Performed by: [facility] [place] [address] Access Service Representative: Shawanda Jimenez Ph.D.; CLIA# [id number] Result Comment: NOTE Test Result Flag Unit RefValue Aldosterone, KELLEY 74 ng/dL Not applicable ADDITIONAL INFORMATION This test was developed and its performance characteristics determined by [facility] in a manner consistent with CLIA requirements. This test has not been cleared or approved by the U.S. Food and Drug Administration. Test Performed by: [facility] [place] [address] Access Service Representative: Shawanda Jimenez Ph.D.; CLIA# [id number] TEST NAME ALAV LEFT ADRENAL Normal [facility] TEST NAME ALAV LEFT ADRENAL Normal [facility] TEST NAME ARAV RIGHT ADRENAL Normal [facility] TEST NAME ARAV RIGHT ADRENAL Normal [facility] Telephoneon 01-18-2025 Telephone [id number] Aby Madrigal 1965 F Date Provider Department Center 01/18/2025 [id number]-RNFCH, WADE [facility] ENDOCR [facility] Family History Problem Relation Age of Onset Lung cancer Mother Accidental Father Lung cancer Sister Family Status - Relation Status Age at Mother Father Sister Brother Alive Normal [facility] Follow-Upon 01-09-2025 Follow-Up [id number] Aby Madrigal 1965 Date Provider Department Center 01/09/2025 [id number]-IOJBWFENG BOWMAN [facility] Family History Problem Relation Age of Onset Lung cancer Mother No Known Problems Father Lung cancer Sister Family Status - Relation Status Age at Mother Father Sister Level of Service:03436 [place] OFFICE/OUTPATIENT ESTABLISHED LOW MDM 20 MIN [facility] 36on 01-04-2025 36 Called patient's daughter [...] thanked me for the call [facility] 36on 01-03-2025 36 Voicemail. Patient's daughter called in, she thought Dr. Christie was going to order testing where they go in through the groin to see which kidney is dumping off excess hormones, she would like a call back. [facility] Telephoneon 01-03-2025 Telephone [id number] Aby Madrigal 1965 Date Provider Department [place] 01/03/2025 [id number]-BEHKFFENG BOWMAN [facility] Family History Problem Relation Age of Onset Lung cancer Mother No Known Problems Father Lung cancer Sister Family Status - Relation Status Age at Mother Father Sister [facility] ALDOSTERONEon 01-02-2025 ALDOSTERONE (NG/DL) IN SER/PLAS 7.3 ng/dL Normal [facility] Comment on [...] reference intervals for this test in the [facility] Test Directory (natue). Performed By: [facility] [address] [place] [address] Flyer Maker: Navneet Simeon MD, PhD CLIA Number: [id number] Performed By: #### L [id number] #### [facility] [address] [place] [address] ALDOSTERONE (NG/DL) IN SER/PLAS 14.2 ng/dL Normal [facility] Comment on [...] reference intervals for this test in the [facility] Test Directory (natue). Performed By: [facility] [address] [place] [address] Flyer Maker: Navneet Simeon MD, PhD CLIA Number: [id number] Performed By: #### L [id number] #### [facility] [address] [place] [address] CORTISOLon 01-02-2025 CORTISOL (UG/DL) IN SER/PLAS 3.6 ug/dL Normal 0-9 [facility] Comment on above: Performed By: #### L [id number] #### [facility] [address] [place] [address] CORTISOL (UG/DL) IN SER/PLAS 9.0 ug/dL Normal 6-23 [facility] Comment on above: Performed By: #### L [id number] #### [facility] ([facility]) [address] [facility] [place] [address] NURSNOTEon 01-02-2025 NURSNOTE T-5=1503, at this ti me VS taken, IV [...] pt up to BR and released. Normal [facility] POTASSIUMon 01-02-2025 Potassium [Moles/Vol] 3.9 mmol/L Normal 3.5-5.1 [facility] Comment on above: Performed By: #### L [id number] ####[facility] ([facility])[address] [place] [address] Potassium [Moles/Vol] 4.0 mmol/L Normal 3.5-5.1 [facility] Comment on above: Performed By: #### L [id number] #### [facility] ([facility]) [address] [facility] [address] RENIN ACTIVITYon 01-02-2025 RENIN ACTIVITY <0.1 Normal [facility] Comment on above: Result Comment: INTE RPRETIVE INFORMATION: Renin Activity Adult, Normal sodium diet: Supine ................. 0.2-1.6 ng/mL/hr Upright ................ 0.5-4.0 ng/mL/hr Children, Normal sodium diet, Supine: [facility] (1-7 days) ..... 2.0-35.0 ng/mL/hr Cord blood [...] developed and its performance characteristics determined by [facility]. It has not been cleared or approved by the US Food and Drug Administration. This test was performed in a CLIA certified laboratory and is intended for clinical purposes. Performed By: [facility] [address] [place] [address] Flyer Maker: Navneet Simeon MD, PhD CLIA Number: [id number] Performed By: #### L [id number] #### [facility] [address] [place] [address] RENIN ACTIVITY <0.1 Normal [facility] Comment on [...] developed and its performance characteristics determined by [facility]. It has not been cleared or approved by the US Food and Drug Administration. This test was performed in a CLIA certified laboratory and is intended for clinical purposes. Performed By: [facility] [address] [place] [address] Flyer Maker: Navneet Simeon MD, PhD CLIA Number: [id number] Performed By: #### L [id number] #### [facility] [address] [place] [address] Orders Onlyon 01-01-2025 Orders Only [id number] Strausbaugh,Aby S 1965 F Date Provider Department Center 01/01/2025 [id number] BLACKMAN [facility] 2A Second Fl Family History Problem Relation Age of Onset Lung cancer Mother No Known Problems Father Lung cancer Sister Family Status - Relation Status Age at Mother Father Sister Normal [facility] Orders Only [id number] Strausbaugh,Aby S 1965 F Date Provider Department Center 01/01/2025 175GIBSON NIELSEN [facility] 2A Second Fl Family History Problem Relation Age of Onset Lung cancer Mother No Known Problems Father Lung cancer Sister Family Status - Relation Status Age at Mother Father Sister Normal [facility] Orders Onlyon 12-26-2024 Orders Only [id number] Strausbaugh,Aby S 1965 F Date Provider Department Center 12/26/2024 162DAX CORTEZ [facility] 2A Second Fl Family History Problem Relation Age of Onset Lung cancer Mother No Known Problems Father Lung cancer Sister Family Status - Relation Status Age at Mother Father Sister Normal [facility] Orders Only [id number] Strausbaugh,Aby S 1965 F Date Provider Department Center 12/26/2024 [id number] BLACKMAN [facility] 2A Second Fl Family History Problem Relation Age of Onset Lung cancer Mother No Known Problems Father Lung cancer Sister Family Status - Relation Status Age at Mother Father Sister Normal [facility] Orders Only [id number] Strausbaugh,Aby S 1965 F Date Provider Department Center 12/26/2024 188USHA LLAMAS [facility] 2A Second Fl Family History Problem Relation Age of Onset Lung cancer Mother No Known Problems Father Lung cancer Sister Family Status - Relation Status Age at Mother Father Sister Normal [facility] 36on 12-25-2024 36 Patient has not hear d from the [facility] about scheduling this, she is going to reach out to them directly, but could someone reach out to the [facility] about what's going on? Normal [facility] Orders Onlyon 12-25-2024 Orders Only [id number] Strausbaugh,Aby S 1965 F Date Provider Department Center 12/25/2024 1759-GIBSON GARCIA [facility] 2A Second Fl Family History Problem Relation Age of Onset Lung cancer Mother No Known Problems Father Lung cancer Sister Family Status - Relation Status Age at Mother Father Sister Normal [facility] Orders Only [id number] Aby Madrigal S 1965 F Date Provider Department Center 12/25/2024 190-JOSE PRICE INF DCC Family History Problem Relation Age of Onset Lung cancer Mother No Known Problems Father Lung cancer Sister Family Status - Relation Status Age at Mother Father Sister Normal [facility] 36on 12-12-2024 36 Antonio I signed the orders for saline infusion test back on Oct 12 (its a Therapy Plan) Can we call the [facility] and ask what more do they need to get the patient scheduled thanks [facility] 36on 12-08-2024 36 Patient had not hear d from the [facility] about scheduling a Saline Infusion Test, when I look into the chart, I cannot find any orders [facility] Telephoneon 12-08-2024 Telephone [id number] Sanjana Madrigalty S 1965 F Date Provider Department Center 12/08/2024 [id number]-DBOQK, WADE [facility] ENDOCR [facility] Family History Problem Relation Age of Onset Lung cancer Mother No Known Problems Father Lung cancer Sister Family Status - Relation Status Age at Mother Father Sister Normal [facility] Abstracton 11-21-2024 Abstract [id number] Sanjana Madrigalty S 1965 F Date Provider Department Center 11/21/202489965-GBBYSH-CHJDARA CARTER ONC DCC Family History Problem Relation Age of Onset Lung cancer Mother No Known Problems Father Lung cancer Sister Family Status - Relation Status Age at Mother Father Sister Normal [facility] CT CHEST WO IV CONTRASTon [...] Marlon Green MD. 5 Invalid Interpretation Code [facility] Office Visiton 10-26-2024 Follow-up visit [id number] Aby Madrigal 1965 F Date Provider Department Center 10/26/2024 383-RICHA VIRAMONTES ONC DCC Family History Problem Relation Age of Onset Lung cancer Mother No Known Problems Father Lung cancer Sister Family Status - Relation Status Age at Mother Father Sister Level of Service:81027 [place] OFFICE/OUTPATIENT ESTABLISHED SF MDM 10 MIN () Reason for Visit and Comments: Follow-up [[id number]] - F/U to review CT scan that was done today. Normal [facility] 29on 10-03-2024 29 Addended by: FENG CHRISTIE on: 10/12/2024 10:02 AM Modules accepted: Orders Normal [facility] 37on 10-03-2024 37 It was [...] called a saline infusion test at the [facility] they will be in contact with you likely within the next week. This is a 2-hour test in which we infused saline 2 L and assess any changes in your aldosterone level. This is in a monitored setting so you will not be alone. Normal [facility] Follow-Upon 10-03-2024 Follow-Up [id number] Aby Madrigal 1965 Date Provider Department Center 10/03/2024 [id number]-RCVDR, FENG [facility] ENDOCR [facility] Family History Problem Relation Age of Onset Lung cancer Mother No Known Problems Father Lung cancer Sister Family Status - Relation Status Age at Mother Father Sister Level of Service:96730 [place] OFFICE/OUTPATIENT ESTABLISHED MOD MDM 30 MIN Reason for Visit and Comments: Follow-up [[id number]] Normal [facility] Office Visiton 09-04-2024 Follow-up visit [id number] Aby Madrigal 1965 Date Provider Department Center 09/04/2024 Octavio-GOMEZ SPENCE RIAZ [place] Family History Problem Relation Age of Onset Lung cancer Mother No Known Problems Father Lung cancer Sister Family Status - Relation Status Age at Mother Father Sister Level of Service:20752 [place] OFFICE/OUTPATIENT ESTABLISHED MOD MDM 30 MIN Normal [facility] ALDOSTERONEon 08-29-2024 ALDOSTERONE (NG/DL) IN SER/PLAS 13.0 ng/dL Normal [facility] Comment on [...] reference intervals for this test in the [facility] Test Directory (natue). Performed By: [facility] [address] [place] [address] Flyer Maker: Navneet Simeon MD, PhD CLIA Number: [id number] Performed By: #### L [id number] #### [facility] [address] [place] [address] Ron 08-29-2024 ALT [Catalytic activity/Vol] 25 U/L Normal 7-52 [facility] Comment on above: Performed By: #### L [id number] ####[facility] ([facility])[address] [place] [address] Riki 08-29-2024 AST [Catalytic activity/Vol] 21 U/L Normal 13-39 [facility] Comment on above: Performed By: #### L [id number] #### [facility] [address] [place] [address] BASIC METABOLIC PANELon 10 Anion gap [Moles/Vol] 12 mmol/L Normal 7-20 [facility] Comment on above: Performed By: #### L AB15 ####[facility] [place] [address] Calcium [Mass/Vol] 9.3 mg/dL Normal 8.6-10.3 [facility] Comment on above: Performed By: #### L AB15 ####[facility] [place] [address] Chloride [Moles/Vol] 105 mmol/L Normal 98-107 [facility] Comment on above: Performed By: #### L AB15 ####[facility] ([facility])[address] [place] [address] CO2 [Moles/Vol] 28 mmol/L Normal 21-31 [facility] Comment on above: Performed By: #### L AB15 ####[facility] ([facility])[address] [place] [address] Creatinine [Mass/Vol] 0.95 mg/dL Normal 0.60-1.20 [facility] Comment on above: Performed By: #### L AB15 ####[facility] ([facility])[address] [place] [address] GLOMERULAR FILTRATION RATE ML/MIN/1.73 SQ M.PREDICTED 68.6 mL/min/1.73m*2 Normal >60.0 [facility] Comment on above: Result Comment: The [facility]???s estimated glomerular filtration rate (eGFR) [...] of individuals. Performed By: #### L AB15 ####[facility] ([facility])[address] [facility] [place] [address] Glucose [Mass/Vol] 99 mg/dL Normal 70-100 [facility] Comment on above: Performed By: #### L AB15 ####[facility] ([facility])[address] [place] [address] Potassium [Moles/Vol] 3.6 mmol/L Normal 3.5-5.1 [facility] Comment on above: Performed By: #### L AB15 ####[facility] ([facility])[address] [place] [address] Sodium [Moles/Vol] 141 mmol/L Normal 136-145 [facility] Comment on above: Performed By: #### L AB15 ####[facility] ([facility])[address] [place] [address] Urea nitrogen [Mass/Vol] 19 mg/dL Normal 7-25 [facility] Comment on above: Performed By: #### L AB15 ####[facility] ([facility])[address] [facility] [place] [address] UREA NITROGEN/CREATININE (MASS RATIO) IN SER/PLAS 20.0 Normal [facility] Comment on above: Performed By: #### L AB15 ####[facility] ([facility])[address] [place] [address] CORTISOLon 08-29-2024 CORTISOL (UG/DL) IN SER/PLAS 6.1 ug/dL Normal 0-9 [facility] Comment on above: Performed By: #### L AB61 #### [facility] ([facility]) [address] [address] CT ABDOMEN PELVIS W AND WO I [...] Radiology 2017. Electronically signed: Marybeth Bryan. Haider Vlwillam Invalid Interpretation Code [facility] DEXAMETHASONE LEVELon 2023 DEXAMETHASONE <50.0 Normal [facility] Comment on above: Order Comment: [...] developed and its performance characteristics determined by [facility]. It has not been cleared or approved by the US Food and Drug Administration. This test was performed in a CLIA certified laboratory and is intended for clinical purposes. Performed By: [facility] [address] [place] [address] Flyer Maker: Navneet Simeon MD, PhD CLIA Number: [id number] Performed By: #### L [id number] #### [facility] ([facility]) [address] [place] [address] LIPID PANELon 08-29-2024 CHOL/HDL 2.4 mg/dL Normal [facility] Comment on above: Performed By: #### L [id number] #### [facility] ([facility]) [address] [place] [address] Cholesterol [Mass/Vol] 80 mg/dL Low 120-200 [facility] Comment on above: Performed By: #### L [id number] #### [facility] ([facility]) [address] [place] [address] Magnesium [Mass/Vol] 96 mg/dL Normal 40-149 [facility] Comment on above: Result Comment: TRIG LYCERIDE REFERENCE RANGE: 20 YEARS AND OLDER CARDIOVASCULAR RISK LESS THAN 150 mg/dL LOW RISK 150 TO 199 mg/dL BORDERLINE RISK 200 mg/dL AND GREATER HIGH RISK Performed By: #### L [id number] #### [facility] ([facility]) [address] [place] [address] Magnesium [Mass/Vol] 28 mg/dL Normal 0-160 [facility] Comment on above: Performed By: #### L [id number] #### [facility] [address] [place] [address] Magnesium [Mass/Vol] 33 mg/dL Normal 23-92 [facility] Comment on above: Performed By: #### L [id number] #### [facility] [address] [place] [address] NON HDL CHOL. (LDL+VLDL) 47 Normal [facility] Comment on above: Performed By: #### L [id number] #### [facility] [address] [place] [address] TOTAL VLDL-C 19 mg/dL Normal 0-40 [facility] Comment on above: Performed By: #### L [id number] #### [facility] ([facility]) [address] [place] [address] Labon 08-29-2024 Lab [id number] Aby Madrigal 1965 F Date Provider Department Center 08/29/2024 2245-[facility] OPD LAB RESOURCE [facility] OPD [facility] Family History Problem Relation Age of Onset Lung cancer Mother No Known Problems Father Lung cancer Sister Family Status - Relation Status Age at Mother Father Sister Normal [facility] RENIN ACTIVITYon 08-29-2024 RENIN ACTIVITY <0.1 Normal [facility] Comment on [...] developed and its performance characteristics determined by [employer]. It has not been cleared or approved by the US Food and Drug Administration. This test was performed in a CLIA certified laboratory and is intended for clinical purposes. Performed By: [facility] [employer] [address] [place] [address] Flyer Maker: Navneet Simeon MD, PhD CLIA Number: [id number] Performed By: #### L [id number] #### [facility] ([facility]) [address] [place] [address] 36on 08-10-2024 36 Updated patient on Nodify blood test results and plan for f/u CT and appt scheduled for 10/26/24. [facility] Letter (Out)on 08-09-2024 Letter (Out) [id number] Aby Madrigal 1965 F Date Provider Department Center 08/09/2024 None-None [facility] ADMIT None Family History Problem Relation Age of Onset Lung cancer Mother No Known Problems Father Lung cancer Sister Family Status - Relation Status Age at Mother Father Sister [facility] 36on 08-08-2024 36 Called patient over [...] thanked me for the call [facility] Orders Onlyon 08-08-2024 Orders Only [id number] Aby Madrigal 1965 F Date Provider Department Center 08/08/2024 RICHA MERINO ONC DCC Family History Problem Relation Age of Onset Lung cancer Mother No Known Problems Father Lung cancer Sister Family Status - Relation Status Age at Mother Father Sister Normal [facility] Telephoneon 08-08-2024 Telephone [id number] Aby Madrigal S 1965 F Date Provider Department Center 08/08/2024 [id number]-LCMKRFENG BOWMAN [facility] ENDOCR [facility] Family History Problem Relation Age of Onset Lung cancer Mother No Known Problems Father Lung cancer Sister Family Status - Relation Status Age at Mother Father Sister Normal [facility] Telemedicineon 07-20-2024 Telemedicine [id number] Aby Madrigal S 1965 F Date Provider Department Center 07/20/2024 383-RICHA VIRAMONTES ONC DCC Family History Problem Relation Age of Onset Lung cancer Mother No Known Problems Father Lung cancer Sister Family Status - Relation Status Age at Mother Father Sister Level of Service:94136 [place] PHYS/QHP TELEPHONE EVALUATION 21-30 MIN () Reason for Visit and Comments: 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 CHEST 04-21-24- PET 06-21-24 Films requested 07-18-24 HAVING HARD TIME GETTING FILMS FROM [place] AGAIN. Ginny at [facility] ([phone] direct line) is working on sending them. CHECK [facility] FOR FILMS PLEASE Normal [facility] 37on 07-18-2024 37 It was [...] lab work done at one of these [facility] Lab Sites The results will then come straight to me I appreciate it [facility] [address] [facility] [address] Hours Wednesday - Wednesday 8 AM - 4PM (Closed 12 - 12:30 PM daily) Phone: [facility] [address] Hours: Wednesday - Wednesday 6 AM - 5 PM day: 7 AM - 2 PM Phone: [address] [place] Hours: Wednesday - Wednesday 7 AM - 3:30 PM Phone: [facility] [address] [place] Hours: Wednesday - Wednesday 7 AM - 5:30 PM Phone: Kayy Maurer [facility] [address] [place] Hours: Wednesday - Wednesday 8 AM - 4:30 PM Phone: [facility] EDNURSon 07-18-2024 EDNURS ADR and relevant inf o reported to [facility] in pharmacy d/t safety net being down. Viet Kelly RN 07/18/24 1131 [facility] EDNURS SENT FROM MD OFFICE RE: LOW BP; RECENT DC FROM [facility] FOR SAME [facility] EDPROVon 07-18-2024 EDPROV HPI Chief Complaint [...] new meds yesterday. History provided by: Patient teamcenter solution architect used: No [place] Coma Scale Score: 15 Patient History Past [...] mouth i (more content not included)... Normal [facility] Office Visiton 07-18-2024 Follow-up visit [id number] Aby Madrigal 1965 F Date Provider Department Center 07/18/2024 89301-ZEBNFFENG BOWMAN [facility] Family History Problem Relation Age of Onset Lung cancer Mother No Known Problems Father Lung cancer Sister Family Status - Relation Status Age at Mother Father Sister Level of Service:53312 [place] OFFICE/OUTPATIENT NEW MODERATE MDM 45 MINUTES Reason for Visit and Comments: Nodules [Other] Normal [facility] Follow-up visit [id number] Aby Madrigal 1965 F Date Provider Department Center 07/18/2024 [id number] BOWMAN [facility] Family History Problem Relation Age of Onset Lung cancer Mother No Known Problems Father Lung cancer Sister Family Status - Relation Status Age at Mother Father Sister Level of Service:NOCHG [place]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 I am calling you to follow [...] Patient Name Aby Madrigal Date 07/13/24 Normal [facility] Telephoneon 07-13-2024 Telephone [phone] Aby Madrigal 1965 F Date Provider Department Center 07/13/2024 Adela-GINNY GARCIA [facility] Family History Problem Relation Age of Onset Lung cancer Mother No Known Problems Father Lung cancer Sister Family Status - Relation Status Age at Mother Father Sister Reason for Visit and Comments: Hospital Follow-up [832] Normal [facility] 30on 07-12-2024 30 The patient [...] to address these barriers include . Normal [facility] ANTI-XA (HEPARIN LEVEL)on HEPARIN UNFRACTIONATED (U/ML) IN PPP BY CHROMOGENIC METHOD 0.60 IU/mL Normal 0.3-0.7 [facility] Comment on above: Order Comment: Check anti-Xa level every 6 hours while on heparin infusion, or per protocol. Result Comment: Thornton roxaban and Apixaban will interfere with the anti Xa assay used to monitor UFH and LMWH. Performed By: #### L [id number] ####[facility] ([facility] [place] [address] BASIC METABOLIC PANELon 08-2 Anion gap [Moles/Vol] 10 mmol/L Normal 7-20 [facility] Comment on above: Performed By: #### L [id number] #### [facility] ([facility]) [address] [place] [address] Calcium [Mass/Vol] 8.8 mg/dL Normal 8.6-10.3 [facility] Comment on above: Performed By: #### L [id number] #### [facility] ([facility]) [address] [place] [address] Chloride [Moles/Vol] 108 mmol/L High 98-107 [facility] Comment on above: Performed By: #### L [id number] #### [facility] ([facility]) [address] [place] [address] CO2 [Moles/Vol] 27 mmol/L Normal 21-31 [facility] Comment on above: Performed By: #### L [id number] #### [facility] ([facility]) [address] [place] [address] Creatinine [Mass/Vol] 0.89 mg/dL Normal 0.60-1.20 [facility] Comment on above: Performed By: #### L [id number] #### [facility] ([facility]) [address] [place] [address] GLOMERULAR FILTRATION RATE ML/MIN/1.73 SQ M.PREDICTED 74.2 mL/min/1.73m*2 Normal >60.0 [facility] Comment on above: Result Comment: [facility]???s estimated glomerular filtration rate (eGFR) [...] group of individuals. Performed By: #### L [id number] #### [facility] ([facility]) [address] [place] [address] Glucose [Mass/Vol] 109 mg/dL High 70-100 [facility] Comment on above: Performed By: #### L [id number] #### [facility] ([facility]) [address] [place] [address] Potassium [Moles/Vol] 3.4 mmol/L Low 3.5-5.1 [facility] Comment on above: Performed By: #### L [id number] #### [facility] ([facility]) [address] [place] [address] Sodium [Moles/Vol] 142 mmol/L Normal 136-145 [facility] Comment on above: Performed By: #### L [id number] #### [facility] ([facility]) [address] [place] [address] Urea nitrogen [Mass/Vol] 11 mg/dL Normal 7-25 [facility] Comment on above: Performed By: #### L [id number] #### [facility] ([facility]) [address] [place] [address] UREA NITROGEN/CREATININE (MASS RATIO) IN SER/PLAS 12.4 Normal [facility] Comment on above: Performed By: #### L [id number] #### [facility] ([facility]) [address] [place] [address] CBC WITH AUTO DIFFERENTIALon 07-12-2024 Basophils (Bld) [#/Vol] 0.04 10*3/uL Normal 0.00-0.20 [facility] Comment on above: Performed By: #### L [id number] #### [facility] ([facility]) [address] [place] [address] Basophils/100 WBC (Bld) 0.6 % Normal 0.0-1.0 [facility] Comment on above: Performed By: #### L [id number] #### [facility]) [address] [place] [address] Eosinophils (Bld) [#/Vol] 0.22 10*3/uL Normal 0.00-0.50 [facility] Comment on above: Performed By: #### L [id number] #### [facility] ([facility]) [address] [place] [address] Eosinophils/100 WBC (Bld) 3.5 % Normal 0.0-6.0 [facility] Comment on above: Performed By: #### L [id number] #### [facility] ([facility]) [address] [place] [address] Erythrocyte distribution width (RBC) [Ratio] 14.5 % Normal 11.5-15.0 [facility] Comment on above: Performed By: #### L [id number] #### [facility] ([facility]) [address] [address] ERYTHROCYTE MEAN CORPUSCULAR HEMOGLOBIN CONCENTRATION (G/DL) BY AUTOMATED 32.7 g/dL Normal 32.0-35.0 [facility] Comment on above: Performed By: #### L [id number] #### [facility] ([facility]) [address] [place] [address] Hematocrit (Bld) [Volume fraction] 34.2 % Low 36.0-48.0 [facility] Comment on above: Performed By: #### L [id number] #### [facility]) [address] [place] [address] Hemoglobin (Bld) [Mass/Vol] 11.2 g/dL Low 12.0-15.0 [facility] Comment on above: Performed By: #### L [id number] #### [facility] ([facility]) [address] [place] [address] Immature granulocytes (Bld) [#/Vol] 0.01 10*3/uL Normal 0.00-0.20 [facility] Comment on above: Performed By: #### L [id number] #### [facility] ([facility]) [address] [place] [address] Immature granulocytes/100 WBC (Bld) 0.2 % Normal 0.0-1.0 [facility] Comment on above: Performed By: #### L [id number] #### [facility] ([facility]) [address] [place] [address] Lymphocytes (Bld) [#/Vol] 2.37 10*3/uL Normal 1.20-4.00 [facility] Comment on above: Performed By: #### L [id number] #### [facility] ([facility]) [address] [place] [address] Lymphocytes/100 WBC (Bld) 37.8 % Normal 20.0-45.0 [facility] Comment on above: Performed By: #### L [id number] #### [facility] ([facility]) [address] [place] [address] MCH (RBC) [Entitic mass] 27.4 pg Normal 27.0-33.0 [facility] Comment on above: Performed By: #### L [id number] #### [facility] [address] [place] [address] MCV (RBC) [Entitic vol] 83.6 fL Normal 82.0-98.0 [facility] Comment on above: Performed By: #### L [id number] #### [facility]) [address] [place] [address] Monocytes (Bld) [#/Vol] 0.43 10*3/uL Normal 0.10-1.00 [facility] Comment on above: Performed By: #### L [id number] #### [facility]) [address] [place] [address] Monocytes/100 WBC (Bld) 6.9 % Normal 5.0-12.0 [facility] Comment on above: Performed By: #### L [id number] #### [facility] ([facility]) [address] [place] [address] Neutrophils (Bld) [#/Vol] 3.20 10*3/uL Normal 1.60-7.60 [facility] Comment on above: Performed By: #### L [id number] #### [facility] ([facility]) [address] [place] [address] Neutrophils/100 WBC (Bld) 51.0 % Normal 40.0-72.0 [facility] Comment on above: Performed By: #### L [id number] #### [facility] ([facility]) [address] [place] [address] NRBC (PER 100 WBCS) BY AUTOMATED COUNT 0.0 % Normal 0 [facility] Comment on above: Performed By: #### L [id number] #### [facility] ([facility]) [address] [place] [address] PLATELETS (10*3/UL) IN BLOOD AUTOMATED COUNT 223 10*3/uL Normal 150-400 [facility] Comment on above: Performed By: #### L [id number] #### [facility] ([facility]) [address] [place] [address] RBC (Bld) [#/Vol] 4.09 10*6/uL Normal 3.80-5.00 [facility] Comment on above: Performed By: #### L [id number] #### [facility] ([facility]) [address] [place] [address] WBC (Bld) [#/Vol] 6.27 10*3/uL Normal 4.00-10.60 [facility] Comment on above: Performed By: #### L [id number] #### [facility] ([facility]) [address] [place] [address] MAGNESIUMon 07-12-2024 Magnesium [Mass/Vol] 1.7 mg/dL Low 1.9-2.7 [facility] Comment on above: Performed By: #### L [id number] #### [facility] ([facility]) [address] [place] [address] POCT GLUCOSE METER UNSOLICIT ED RESULTSon 07-12-2024 Glucose [Mass/Vol] 102 mg/dL Normal 70-105 [facility] Comment on above: Order Comment: Waive d Testing in the ED is performed under the ED CLIA certificate #[id number]. Result Comment: [email or web address] Performed By: #### L [id number] #### [facility] ([facility]) [address] [place] [address] TROPONIN Ion 07-12-2024 Troponin I.cardiac [Mass/Vol] 0.01 ng/mL Normal 0.00-0.04 [facility] Comment on above: Performed By: #### L [id number] #### [facility] ([facility]) [address] [place] [address] 30on 07-11-2024 30 The patient is Moderately [...] and maintained or improved Outcome: Progressing Normal [facility] 30 The patient is Moderately [...] to address these barriers include . Normal [facility] ALDOSTERONEon 07-11-2024 ALDOSTERONE (NG/DL) IN SER/PLAS 4.9 ng/dL Normal [facility] Comment on [...] reference intervals for this test in the [facility] Test Directory (natue). Performed By: [employer] [address] [place] [address] Flyer Maker: Navneet Simeon MD, PhD CLIA Number: [id number] Performed By: #### L [id number] ####[facility] ([facility])[address] [place] [address] ANTI-XA (HEPARIN LEVEL)on HEPARIN UNFRACTIONATED (U/ML) IN PPP BY CHROMOGENIC METHOD 0.42 IU/mL Normal 0.3-0.7 [facility] Comment on above: Order Comment: Waive d Testing in the ED is performed under the ED CLIA certificate #[id number]. Result Comment: Radha roxaban and Apixaban will interfere with the anti Xa assay used to monitor UFH and LMWH. Performed By: #### L [id number] #### [facility] ([facility]) [address] [place] [address] HEPARIN UNFRACTIONATED (U/ML) IN PPP BY CHROMOGENIC METHOD 0.20 IU/mL Low 0.3-0.7 [facility] Comment on above: Order Comment: Check anti-Xa level every 6 hours while on heparin infusion, or per protocol. Result Comment: Radha roxaban and Apixaban will interfere with the anti Xa assay used to monitor UFH and LMWH. Performed By: #### L [id number] #### [facility] ([facility]) [address] [place] [address] APTTon 07-11-2024 ACTIVATED PARTIAL THROMBOPLASTIN TIME IN PPP BY COAGULATION ASSAY 43.0 Seconds High 25.0-35.0 [facility] Comment on above: Result Comment: Clin ical significance of the APTT is questionable in the presence of heparin. Performed By: #### L [id number] #### [facility] ([facility]) [address] [place] [address] BASIC METABOLIC PANELon 08-2 0-2023 Anion gap [Moles/Vol] 9 mmol/L Normal 7-20 [facility] Comment on above: Performed By: #### L [id number] #### [facility] ([facility]) [address] [place] [address] Calcium [Mass/Vol] 8.8 mg/dL Normal 8.6-10.3 [facility] Comment on above: Performed By: #### L [id number] #### [facility] ([facility]) [address] [place] [address] Chloride [Moles/Vol] 108 mmol/L High 98-107 [facility] Comment on above: Performed By: #### L [id number] #### [facility] ([facility]) [address] [place] [address] CO2 [Moles/Vol] 28 mmol/L Normal 21-31 [facility] Comment on above: Performed By: #### L [id number] #### [facility] ([facility]) [address] [place] [address] Creatinine [Mass/Vol] 1.09 mg/dL Normal 0.60-1.20 [facility] Comment on above: Performed By: #### L [id number] #### [facility] ([facility]) [address] [place] [address] GLOMERULAR FILTRATION RATE ML/MIN/1.73 SQ M.PREDICTED 58.2 mL/min/1.73m*2 Low >60.0 [facility] Comment on above: Result Comment: [facility]???s estimated glomerular filtration rate (eGFR) [...] individuals. Performed By: #### L [id number] #### [facility] ([facility]) [address] [place] [address] Glucose [Mass/Vol] 113 mg/dL High 70-100 [facility] Comment on above: Performed By: #### L [id number] #### [facility] ([facility]) [address] [place] [address] Potassium [Moles/Vol] 3.4 mmol/L Low 3.5-5.1 [facility] Comment on above: Performed By: #### L [id number] #### [facility] ([facility]) [address] [place] [address] Sodium [Moles/Vol] 142 mmol/L Normal 136-145 [facility] Comment on above: Performed By: #### L [id number] #### [facility] ([facility]) [address] [place] [address] Urea nitrogen [Mass/Vol] 14 mg/dL Normal 7-25 [facility] Comment on above: Performed By: #### L [id number] #### [facility] ([facility]) [address] [facility] [place] [address] UREA NITROGEN/CREATININE (MASS RATIO) IN SER/PLAS 12.8 Normal [facility] Comment on above: Performed By: #### L [id number] #### [facility] ([facility]) [address] [place] [address] CBC WITH AUTO DIFFERENTIALon 07-11-2024 Basophils (Bld) [#/Vol] 0.04 10*3/uL Normal 0.00-0.20 [facility] Comment on above: Performed By: #### L [id number] ####[facility] ([facility])[address] [place] [address] Basophils/100 WBC (Bld) 0.6 % Normal 0.0-1.0 [facility] Comment on above: Performed By: #### L [id number] ####[facility] ([facility])[address] [place] [address] Eosinophils (Bld) [#/Vol] 0.16 10*3/uL Normal 0.00-0.50 [facility] Comment on above: Performed By: #### L [id number] ####[facility] ([facility])[address] [place] [address] Eosinophils/100 WBC (Bld) 2.2 % Normal 0.0-6.0 [facility] Comment on above: Performed By: #### L [id number] ####[facility] ([facility])[address] [place] [address] Erythrocyte distribution width (RBC) [Ratio] 14.6 % Normal 11.5-15.0 [facility] Comment on above: Performed By: #### L [id number] ####[facility])[address] [place] [address] ERYTHROCYTE MEAN CORPUSCULAR HEMOGLOBIN CONCENTRATION (G/DL) BY AUTOMATED 32.0 g/dL Normal 32.0-35.0 [facility] Comment on above: Performed By: #### L [id number] ####[facility] ([facility])[address] [place] [address] Hematocrit (Bld) [Volume fraction] 36.2 % Normal 36.0-48.0 [facility] Comment on above: Performed By: #### L [id number] ####[facility] ([facility])[address] [place] [address] Hemoglobin (Bld) [Mass/Vol] 11.6 g/dL Low 12.0-15.0 [facility] Comment on above: Performed By: #### L [id number] ####[facility] ([facility])[address] [place] [address] Immature granulocytes (Bld) [#/Vol] 0.02 10*3/uL Normal 0.00-0.20 [facility] Comment on above: Performed By: #### L [id number] ####[facility])[address] [place] [address] Immature granulocytes/100 WBC (Bld) 0.3 % Normal 0.0-1.0 [facility] Comment on above: Performed By: #### L [id number] ####[facility])[address] [place] [address] Lymphocytes (Bld) [#/Vol] 2.34 10*3/uL Normal 1.20-4.00 [facility] Comment on above: Performed By: #### L [id number] ####[facility])[address] [place] [address] Lymphocytes/100 WBC (Bld) 32.6 % Normal 20.0-45.0 [facility] Comment on above: Performed By: #### L [id number] ####[facility])[address] [place] [address] MCH (RBC) [Entitic mass] 27.2 pg Normal 27.0-33.0 [facility] Comment on above: Performed By: #### L [id number] ####[facility] ([facility])[address] [place] [address] MCV (RBC) [Entitic vol] 85.0 fL Normal 82.0-98.0 [facility] Comment on above: Performed By: #### L [id number] ####[facility] ([facility])[address] [place] [address] Monocytes (Bld) [#/Vol] 0.49 10*3/uL Normal 0.10-1.00 [facility] Comment on above: Performed By: #### L [id number] ####[facility] ([facility])[address] [place] [address] Monocytes/100 WBC (Bld) 6.8 % Normal 5.0-12.0 [facility] Comment on above: Performed By: #### L [id number] ####[facility] ([facility])[address] [place] [address] Neutrophils (Bld) [#/Vol] 4.13 10*3/uL Normal 1.60-7.60 [facility] Comment on above: Performed By: #### L [id number] ####[facility] ([facility])[address] [place] [address] Neutrophils/100 WBC (Bld) 57.5 % Normal 40.0-72.0 [facility] Comment on above: Performed By: #### L [id number] ####[facility] ([facility])[address] [place] [address] NRBC (PER 100 WBCS) BY AUTOMATED COUNT 0.0 % Normal 0 [facility] Comment on above: Performed By: #### L [id number] ####[facility] ([facility])[address] [place] [address] PLATELETS (10*3/UL) IN BLOOD AUTOMATED COUNT 245 10*3/uL Normal 150-400 [facility] Comment on above: Performed By: #### L [id number] ####[facility] ([facility])[address] [place] [address] RBC (Bld) [#/Vol] 4.26 10*6/uL Normal 3.80-5.00 [facility] Comment on above: Performed By: #### L [id number] ####[facility] ([facility])[address] [place] [address] WBC (Bld) [#/Vol] 7.18 10*3/uL Normal 4.00-10.60 [facility] Comment on above: Performed By: #### L [id number] ####[facility] ([facility])[address] [place] [address] CONSULTon 07-11-2024 CONSULT -- Attestation signed by [...] Brown is the endocrine surgeon in the [place] area that would be most appropriate and [...] with plan for outpatient follow up with [facility] endocrinology Meseret Mac MD Cardiology Consult Note Reason for Consult: Chest pain HPI: Aby Madrigal is a 59 y.o. female patient is presenting as a transfer from [facility] for the evaluation of chest pain. [...] of Abnormal ECG, Diabetes mellitus ([facility]), Hyperlipidemia, Hypertension, Obstructive sleep apnea, Panic attacks, and Stroke ([facility]). Surgical History She has a past surgical [...] Value Ventricular Rate 56 Atrial Rate 56 [place] Interval 180 QRS DURATION 94 QT Interval 430 QTC (more content not included)... Normal [facility] EDPROVon 07-11-2024 EDPROV HPI Chief [...] Pt states she was trasnfered here from [place] to be transferred to cardiology. Pt states she had a cardiac stent placed last week. She denies fever, coughing, vomiting, abdominal pain. She admits diarrhea. She felt better when given ativan and worse when she was given morphine. She has had her gallbladder removed. History provided by: Patient teamcenter solution architect used: No Chest Pain Associated symptoms: no abdominal pain, no cough, no fever and no vomiting [place] Coma Scale Score: 15 Patient History Past [...] signing this emergency patient record, the Emergency Physician/STOCK CLIPPER/PA-C attests that all entries made into the electronic medical record by the scribe prior to the Physician/STOCK CLIPPER/PA-C signature reflect an accurate accounting of the evaluation and care rendered by that Emergency Physician/STOCK CLIPPER/PA-C. The Emergency Physician/STOCK CLIPPER/PA-C assumes full responsibility for those entries. The Emergency Physician/STOCK CLIPPER/PA-C also attests that any patient testing or treatment that was instituted by nursing staff. [facility] EDPROV HPI Chief Complaint Patient presents [...] Pt states she was trasnfered here from [place] to be transferred to cardiology. Pt states she had a cardiac stent placed last week. She denies fever, coughing, vomiting, abdominal pain. She admits diarrhea. She felt better when given ativan and worse when she was given morphine. She has had her gallbladder removed. History provided by: Patient teamcenter solution architect used: No Chest Pain Associated symptoms: no [...] MDM ED Course as of 07/11/24 1256 [facility] Jul 11, 2024 1041 Cardiology consulted [AT] ED Course User Index [AT] Federica Jacobson MD Diagnoses as of 07/11/24 1256 NSTEMI (non-ST elevated myocardial infarction) ([facility]) Medical Decision Making Amount and/or Complexity of Data Reviewed Labs: ordered. Decision-making details documented in ED Course. ECG/medicine tests: ordered and independent interpretation performed. Decision-making details documented in ED Course. Risk Drug therapy requiring intensive monitoring for toxicity. Decision regarding hospitalization. Minor surgery with identified risk factors. I, Basilia diallo (more content not included)... Invalid Interpretation Code [facility] POCT GLUCOSE METER UNSOLICIT ED RESULTSon 07-11-2024 Glucose [Mass/Vol] 122 mg/dL High 70-105 [facility] Comment on above: Order Comment: Waive d Testing in the ED is performed under the ED CLIA certificate #[id number]. Result Comment: [email or web address] Performed By: #### L [id number] #### [facility] ([facility]) [address] [place] [address] PROTIME-INRon 07-11-2024 INR IN PPP BY COAGULATION ASSAY 1.00 Normal 0.90-1.10 [facility] Comment on [...] 1995;[id number]. Performed By: #### L [id number] #### [facility] ([facility]) [address] [place] [address] PROTHROMBIN TIME (PT) IN PPP BY COAGULATION ASSAY 13.2 Seconds Normal 12.3-14.8 [facility] Comment on above: Performed By: #### L [id number] #### [facility] ([facility]) [address] [place] [address] RENIN ACTIVITYon 07-11-2024 RENIN ACTIVITY <0.1 Normal [facility] Comment on [...] developed and its performance characteristics determined by [employer]. It has not been cleared or approved by the US Food and Drug Administration. This test was performed in a CLIA certified laboratory and is intended for clinical purposes. Performed By: [employer] [address] [place] [address] Flyer Maker: Navneet Simeon MD, PhD CLIA Number: [id number] Performed By: #### L [id number] ####[facility] (BEAKER)[address] [place] [address] TROPONIN Ion 07-11-2024 Troponin I.cardiac [Mass/Vol] 0.01 ng/mL Normal 0.00-0.04 [facility] Comment on above: Performed By: #### L [id number] #### [facility] (BEAKER) [address] [place] [address] Office Visiton 07-10-2024 Follow-up visit [id number] Aby Madrigal 1965 F Date Provider Department Center 07/10/2024 [id number] MITCHELL [facility] Family History Problem Relation Age of Onset Lung cancer Mother No Known Problems Father Lung cancer Sister Family Status - Relation Status Age at Mother Father Sister Level of Service:95589 [place] OFFICE/OUTPATIENT ESTABLISHED MOD MDM 30 MIN Reason for Visit and Comments: Coronary Artery Disease [187] Post-Cath [731] Normal [facility] 36on 07-03-2024 36 Post Discharge Call Good morning, I am Ginny Garcia, RN a lead nurse from [facility]. I am calling you to follow [...] Patient Name Aby Madrigal Date 07/03/24 Normal [facility] Telephoneon 07-03-2024 Telephone [id number] Aby Madrigal 1965 F Date Provider Department Center 07/03/2024 [facility] History Problem Relation Age of Onset Lung cancer Mother No Known Problems Father Lung cancer Sister Family Status - Relation Status Age at Mother Father Sister Reason for Visit and Comments: Hospital Follow-up [832] Normal [facility] 30on 07-01-2024 30 The patient [...] and maintained or improved Outcome: Progressing Normal [facility] BASIC METABOLIC PANELon 06-22 Anion gap [Moles/Vol] 14 mmol/L Normal 7-20 [facility] Comment on above: Performed By: #### L [id number] #### [facility] ([facility]) [address] [place] [address] Calcium [Mass/Vol] 8.2 mg/dL Low 8.6-10.3 [facility] Comment on above: Performed By: #### L [id number] #### [facility] ([facility]) [address] [place] [address] Chloride [Moles/Vol] 106 mmol/L Normal 98-107 [facility] Comment on above: Performed By: #### L [id number] #### [facility] ([facility]) [address] [place] [address] CO2 [Moles/Vol] 25 mmol/L Normal 21-31 [facility] Comment on above: Performed By: #### L [id number] #### [facility] ([facility]) [address] [place] [address] Creatinine [Mass/Vol] 0.91 mg/dL Normal 0.60-1.20 [facility] Comment on above: Performed By: #### L [id number] #### [facility] ([facility]) [address] [place] [address] GLOMERULAR FILTRATION RATE ML/MIN/1.73 SQ M.PREDICTED 72.2 mL/min/1.73m*2 Normal >60.0 [facility] Comment on above: Result Comment: The [facility]???s estimated glomerular filtration rate (eGFR) [...] individuals. Performed By: #### L [id number] #### [facility] ([facility]) [address] [place] [address] Glucose [Mass/Vol] 101 mg/dL High 70-100 [facility] Comment on above: Performed By: #### L [id number] #### [facility] ([facility]) [address] [place] [address] Potassium [Moles/Vol] 3.5 mmol/L Normal 3.5-5.1 [facility] Comment on above: Performed By: #### L [id number] #### [facility] ([facility]) [address] [place] [address] Sodium [Moles/Vol] 141 mmol/L Normal 136-145 [facility] Comment on above: Performed By: #### L [id number] #### [facility] ([facility]) [address] [place] [address] Urea nitrogen [Mass/Vol] 13 mg/dL Normal 7-25 [facility] Comment on above: Performed By: #### L [id number] #### [facility] ([facility]) [address] [place] [address] UREA NITROGEN/CREATININE (MASS RATIO) IN SER/PLAS 14.3 Normal [facility] Comment on above: Performed By: #### L [id number] #### [facility] ([facility]) [address] [place] [address] CBCon 07-01-2024 Erythrocyte distribution width (RBC) [Ratio] 15.4 % High 11.5-15.0 [facility] Comment on above: Performed By: #### L [id number] ####[facility] ([facility])[address] [place] [address] ERYTHROCYTE MEAN CORPUSCULAR HEMOGLOBIN CONCENTRATION (G/DL) BY AUTOMATED 32.1 g/dL Normal 32.0-35.0 [facility] Comment on above: Performed By: #### L [id number] ####[facility] [place] [address] Hematocrit (Bld) [Volume fraction] 38.6 % Normal 36.0-48.0 [facility] Comment on above: Performed By: #### L [id number] ####[facility] ([facility]ER)[address] [place] [address] Hemoglobin (Bld) [Mass/Vol] 12.4 g/dL Normal 12.0-15.0 [facility] Comment on above: Performed By: #### L [id number] ####[facility] ([facility]ER)[address] [place] [address] MCH (RBC) [Entitic mass] 26.9 pg Low 27.0-33.0 [facility] Comment on above: Performed By: #### L [id number] ####[facility] ([facility])[address] [place] [address] MCV (RBC) [Entitic vol] 83.7 fL Normal 82.0-98.0 [facility] Comment on above: Performed By: #### L [id number] ####[facility] ([facility])[address] [place] [address] PLATELETS (10*3/UL) IN BLOOD AUTOMATED COUNT 238 10*3/uL Normal 150-400 [facility] Comment on above: Performed By: #### L [id number] ####[facility] ([facility])[address] [place] [address] RBC (Bld) [#/Vol] 4.61 10*6/uL Normal 3.80-5.00 [facility] Comment on above: Performed By: #### L [id number] ####[facility] ([facility])[address] [place] [address] WBC (Bld) [#/Vol] 7.04 10*3/uL Normal 4.00-10.60 [facility] Comment on above: Performed By: #### L [id number] ####[facility] ([facility])[address] [place] [address] LIPID PANELon 07-01-2024 CHOL/HDL 3.8 mg/dL Normal [facility] Comment on above: Performed By: #### L [id number] #### [facility] ([facility]) [address] [place] [address] Cholesterol [Mass/Vol] 128 mg/dL Normal 120-200 [facility] Comment on above: Performed By: #### L [id number] #### [facility] [address] [place] [address] Magnesium [Mass/Vol] 87 mg/dL Normal 40-149 [facility] Comment on above: Result Comment: TRIG LYCERIDE REFERENCE RANGE: 20 YEARS AND OLDER CARDIOVASCULAR RISK LESS THAN 150 mg/dL LOW RISK 150 TO 199 mg/dL BORDERLINE RISK 200 mg/dL AND GREATER HIGH RISK Performed By: #### L [id number] #### [facility] ([facility]) [address] [place] [address] Magnesium [Mass/Vol] 77 mg/dL Normal 0-160 [facility] Comment on above: Performed By: #### L [id number] #### [facility] ([facility]) [address] [place] [address] Magnesium [Mass/Vol] 34 mg/dL Normal 23-92 [facility] Comment on above: Performed By: #### L [id number] #### [facility] ([facility]) [address] [place] [address] NON HDL CHOL. (LDL+VLDL) 94 Normal [facility] Comment on above: Performed By: #### L [id number] #### [facility] ([facility]) [address] [place] [address] TOTAL VLDL-C 17 mg/dL Normal 0-40 [facility] Comment on above: Performed By: #### L [id number] #### [facility] ([facility]) [address] [place] [address] MAGNESIUMon 07-01-2024 Magnesium [Mass/Vol] 2.0 mg/dL Normal 1.9-2.7 [facility] Comment on above: Performed By: #### L [id number] ####[facility] ([facility])[address] [place] [address] NURSNOTEon 07-01-2024 NURSNOTE Discharge instructio ns given, reviewed, questions, answered, signed, copy received. Normal [facility] POCT GLUCOSE METER UNSOLICIT ED RESULTSon 07-01-2024 Glucose [Mass/Vol] 124 mg/dL High 70-105 [facility] Comment on above: Order Comment: Waive d Testing in the ED is performed under the ED CLIA certificate #[id number]. Result Comment: [email or web address] Performed By: #### L [id number] ####[facility] (BEAKER)[address] [place] [address] Glucose [Mass/Vol] 106 mg/dL High 70-105 [facility] Comment on above: Order Comment: Waive d Testing in the ED is performed under the ED CLIA certificate #[id number]. Result Comment: [email or web address] Performed By: #### L [id number] #### [facility] ([facility]) [address] [place] [address] TROPONIN Ion 07-01-2024 Troponin I.cardiac [Mass/Vol] 0.09 ng/mL High 0.00-0.04 [facility] Comment on above: Performed By: #### L [id number] #### [facility] ([facility]) [address] [place] [address] 30on 06-30-2024 30 The patient is Moderately Stable - Low risk of patient condition declining or worsening The patient's goals for the shift include comfort, rest The clinical goals for the shift include stable vitals, comfort Problem: Pain - Adult Goal: Verbalizes/displays adequate comfort level or baseline comfort level Outcome: Not Progressing Normal [facility] 30 Daily Case Managemen t [...] PT Recommendations: OT Recommendations: New Consults: Normal [facility] 30 The patient is Moderately Stable - Low risk of patient condition declining or worsening The patient's goals for the shift include COMFORT The clinical goals for the shift include VSS Over the shift, the patient did not make progress toward the following goals. Barriers to progression include . Recommendations to address these barriers include . Normal [facility] ANTI-XA (HEPARIN LEVEL)on HEPARIN UNFRACTIONATED (U/ML) IN PPP BY CHROMOGENIC METHOD 0.64 IU/mL Normal 0.3-0.7 [facility] Comment on above: Order Comment: Check anti-Xa level every 6 hours while on heparin infusion, or per protocol. Result Comment: Thornton roxaban and Apixaban will interfere with the anti Xa assay used to monitor UFH and LMWH. Performed By: #### L [id number] ####[facility] ([facility])[address] [facility] [address] BASIC METABOLIC PANELon Anion gap [Moles/Vol] 11 mmol/L Normal 7-20 [facility] Comment on above: Performed By: #### L [id number] #### [facility] ([facility]) [address] [facility] [place] [address] Calcium [Mass/Vol] 8.3 mg/dL Low 8.6-10.3 [facility] Comment on above: Performed By: #### L [id number] #### [facility] [address] [place] [address] Chloride [Moles/Vol] 110 mmol/L High 98-107 [facility] Comment on above: Performed By: #### L [id number] #### [facility] ([facility]) [address] [facility] [place] [address] CO2 [Moles/Vol] 26 mmol/L Normal 21-31 [facility] Comment on above: Performed By: #### L [id number] #### [facility] ([facility]) [address] [facility] [place] [address] Creatinine [Mass/Vol] 0.81 mg/dL Normal 0.60-1.20 [facility] Comment on above: Performed By: #### L [id number] #### [facility] ([facility]) [address] [place] [address] GLOMERULAR FILTRATION RATE ML/MIN/1.73 SQ M.PREDICTED 83.1 mL/min/1.73m*2 Normal >60.0 [facility] Comment on above: Result Comment: [facility]???s estimated glomerular filtration rate (eGFR) [...] individuals. Performed By: #### L [id number] #### [facility] ([facility]) [address] [place] [address] Glucose [Mass/Vol] 110 mg/dL High 70-100 [facility] Comment on above: Performed By: #### L [id number] #### [facility] ([facility]) [address] [place] [place] [address] Potassium [Moles/Vol] 3.7 mmol/L Normal 3.5-5.1 [facility] Comment on above: Performed By: #### L [id number] #### [facility] ([facility]) [address] [place] [address] Sodium [Moles/Vol] 143 mmol/L Normal 136-145 [facility] Comment on above: Performed By: #### L [id number] #### [facility] ([facility]) [address] [place] [place] [address] Urea nitrogen [Mass/Vol] 10 mg/dL Normal 7-25 [facility] Comment on above: Performed By: #### L [id number] #### [facility] ([facility]) [address] [place] [address] UREA NITROGEN/CREATININE (MASS RATIO) IN SER/PLAS 12.3 Normal [facility] Comment on above: Performed By: #### L [id number] #### [facility] ([facility]) [address] [place] [address] CBCon 06-30-2024 Erythrocyte distribution width (RBC) [Ratio] 15.3 % High 11.5-15.0 [facility] Comment on above: Performed By: #### L [id number] #### [facility] ([facility]) [address] [place] [address] ERYTHROCYTE MEAN CORPUSCULAR HEMOGLOBIN CONCENTRATION (G/DL) BY AUTOMATED 31.3 g/dL Low 32.0-35.0 [facility] Comment on above: Performed By: #### L [id number] #### [facility] ([facility]) [address] [place] [address] Hematocrit (Bld) [Volume fraction] 36.7 % Normal 36.0-48.0 [facility] Comment on above: Performed By: #### L [id number] #### [facility] ([facility]) [address] [place] [address] Hemoglobin (Bld) [Mass/Vol] 11.5 g/dL Low 12.0-15.0 [facility] Comment on above: Performed By: #### L [id number] #### [facility] ([facility]) [address] [place] [address] MCH (RBC) [Entitic mass] 26.9 pg Low 27.0-33.0 [facility] Comment on above: Performed By: #### L [id number] #### [facility] ([facility]) [address] [place] [address] MCV (RBC) [Entitic vol] 85.7 fL Normal 82.0-98.0 [facility] Comment on above: Performed By: #### L [id number] #### [facility] ([facility]) [address] [place] [address] PLATELETS (10*3/UL) IN BLOOD AUTOMATED COUNT 243 10*3/uL Normal 150-400 [facility] Comment on above: Performed By: #### L [id number] #### [facility] ([facility]) [address] [place] [address] RBC (Bld) [#/Vol] 4.28 10*6/uL Normal 3.80-5.00 [facility] Comment on above: Performed By: #### L [id number] #### [facility] ([facility]) [address] [place] [address] WBC (Bld) [#/Vol] 7.41 10*3/uL Normal 4.00-10.60 [facility] Comment on above: Performed By: #### L [id number] #### [facility] ([facility]) [address] [place] [address] CONSULTon 06-30-2024 CONSULT Cardiology Consult Note Reason for Consult: NSTEMI, transfer from [facility] HPI: Aby Madrigal, a 59 y.o. female patient, is transferred from [facility] for continuity of care. Past medical history includes: HTN History of TIA DMII HLD SURESH Overweight Patient reports that 3 days ago, she woke up in the mid of the night with indigestion, and a feeling fullness, but no pressure like chest pain. She presented to [facility], where she was found to be [...] Value Ventricular Rate 71 Atrial Rate 71 [place] Interval 176 QRS DURATION 92 QT Interval 424 QTC CALCULATION(BAZETT) 460 P [place] 52 R-[place] 19 T Wave [place] 164 Impression Normal sinus rhythm Left ventricular [...] Normal sinu (more content not included)... Normal [facility] HPon 06-30-2024 HP H&P reviewed. The patient was examined and there are no changes to the H&P. 59 y.o. year old female with a PMHx significant for DM2, hypertension presents a direct mission from [facility] with a chief complaint of chest [...] to proceed. Signed, Yris Oakley MD PGY-4 Customer Service Advocate Pager: [phone] Normal [facility] POCT GLUCOSE METER UNSOLICIT ED RESULTSon 06-30-2024 Glucose [Mass/Vol] 170 mg/dL High 70-105 [facility] Comment on above: Order Comment: Waive d Testing in the ED is performed under the ED CLIA certificate #[id number]. Result Comment: [email or web address] Performed By: #### L [id number] #### [facility] ([facility]) [address] [place] [place] [address] Glucose [Mass/Vol] 129 mg/dL High 70-105 [facility] Comment on above: Order Comment: Waive d Testing in the ED is performed under the ED CLIA certificate #[id number]. Result Comment: [email or web address] Performed By: #### L [id number] ####[facility] ([facility])[address] [address] Glucose [Mass/Vol] 167 mg/dL High 70-105 [facility] Comment on above: Order Comment: Waive d Testing in the ED is performed under the ED CLIA certificate #[id number]. Result Comment: [email or web address] Performed By: #### L [id number] ####[facility] [place] [address] TROPONIN Ion 06-30-2024 Troponin I.cardiac [Mass/Vol] 0.07 ng/mL High 0.00-0.04 [facility] Comment on above: Performed By: #### L [id number] ####[facility] ([facility]AKER)[address] [place] [address] Troponin I.cardiac [Mass/Vol] 0.10 ng/mL High 0.00-0.04 [facility] Comment on above: Performed By: #### L [id number] #### [facility] ([facility]) [address] [place] [address] Troponin I.cardiac [Mass/Vol] 0.11 ng/mL Critically high 0.00-0.04 [facility] Comment on above: Result Comment: M-TR OPONIN INITIAL CRITICAL HIGH; RESPUN AND RETESTED Performed By: #### L [id number] #### [facility] ([facility]) [address] [place] [address] 30on 06-29-2024 30 The patient is Moderately Stable - Low risk of patient condition declining or worsening The patient's goals for the shift include COMFORT The clinical goals for the shift include VSS Normal [facility] APTTon 06-29-2024 ACTIVATED PARTIAL THROMBOPLASTIN TIME IN PPP BY COAGULATION ASSAY 34.5 Seconds Normal 25.0-35.0 [facility] Comment on above: Order Comment: Basel ine aPTT before initiating heparin infusion. Result Comment: Clin ical significance of the APTT is questionable in the presence of heparin. Performed By: #### L [id number] #### [facility] ([facility]) [address] [place] [address] B-TYPE NATRIURETIC PEPTIDEon 06-29-2024 Natriuretic peptide B (Bld) [Mass/Vol] 222 pg/mL High 0-100 [facility] Comment on above: Performed By: #### L [id number] #### [facility] ([facility]) [address] [place] [address] CBC WITH AUTO DIFFERENTIALon 06-29-2024 Basophils (Bld) [#/Vol] 0.05 10*3/uL Normal 0.00-0.20 [facility] Comment on above: Performed By: #### L [id number] #### [facility] ([facility]) [address] [place] [address] Basophils/100 WBC (Bld) 0.6 % Normal 0.0-1.0 [facility] Comment on above: Performed By: #### L [id number] #### [facility] [address] [place] [address] Eosinophils (Bld) [#/Vol] 0.18 10*3/uL Normal 0.00-0.50 [facility] Comment on above: Performed By: #### L [id number] #### [facility] ([facility]) [address] [place] [address] Eosinophils/100 WBC (Bld) 2.1 % Normal 0.0-6.0 [facility] Comment on above: Performed By: #### L [id number] #### [facility] ([facility]) [address] [place] [address] Erythrocyte distribution width (RBC) [Ratio] 14.9 % Normal 11.5-15.0 [facility] Comment on above: Performed By: #### L [id number] #### [facility] ([facility]) [address] [place] [address] ERYTHROCYTE MEAN CORPUSCULAR HEMOGLOBIN CONCENTRATION (G/DL) BY AUTOMATED 32.9 g/dL Normal 32.0-35.0 [facility] Comment on above: Performed By: #### L [id number] #### [facility] ([facility]) [address] [place] [address] Hematocrit (Bld) [Volume fraction] 35.9 % Low 36.0-48.0 [facility] Comment on above: Performed By: #### L [id number] #### [facility] ([facility]) [address] [place] [address] Hemoglobin (Bld) [Mass/Vol] 11.8 g/dL Low 12.0-15.0 [facility] Comment on above: Performed By: #### L [id number] #### [facility] ([facility]) [address] [place] [address] Immature granulocytes (Bld) [#/Vol] 0.03 10*3/uL Normal 0.00-0.20 [facility] Comment on above: Performed By: #### L [id number] #### [facility] ([facility]) [address] [place] [address] Immature granulocytes/100 WBC (Bld) 0.3 % Normal 0.0-1.0 [facility] Comment on above: Performed By: #### L [id number] #### [facility] [address] [address] Lymphocytes (Bld) [#/Vol] 2.02 10*3/uL Normal 1.20-4.00 [facility] Comment on above: Performed By: #### L [id number] #### [facility] ([facility]) [address] [place] [address] Lymphocytes/100 WBC (Bld) 23.5 % Normal 20.0-45.0 [facility] Comment on above: Performed By: #### L [id number] #### [facility] ([facility]) [address] [place] [address] MCH (RBC) [Entitic mass] 27.2 pg Normal 27.0-33.0 [facility] Comment on above: Performed By: #### L [id number] #### [facility] ([facility]) [address] [place] [address] MCV (RBC) [Entitic vol] 82.7 fL Normal 82.0-98.0 [facility] Comment on above: Performed By: #### L [id number] #### [facility] [address] [place] [address] Monocytes (Bld) [#/Vol] 0.56 10*3/uL Normal 0.10-1.00 [facility] Comment on above: Performed By: #### L [id number] #### [facility] [address] [place] [address] Monocytes/100 WBC (Bld) 6.5 % Normal 5.0-12.0 [facility] Comment on above: Performed By: #### L [id number] #### [facility] ([facility]) [address] [place] [address] Neutrophils (Bld) [#/Vol] 5.74 10*3/uL Normal 1.60-7.60 [facility] Comment on above: Performed By: #### L [id number] #### [facility] [address] [place] [address] Neutrophils/100 WBC (Bld) 67.0 % Normal 40.0-72.0 [facility] [facility] Comment on above: Performed By: #### L [id number] #### [facility] ([facility]) [address] [place] [address] NRBC (PER 100 WBCS) BY AUTOMATED COUNT 0.0 % Normal 0 [facility] Comment on above: Performed By: #### L [id number] #### [facility] ([facility] [address] [place] [address] PLATELETS (10*3/UL) IN BLOOD AUTOMATED COUNT 233 10*3/uL Normal 150-400 [facility] Comment on above: Performed By: #### L [id number] #### [facility] ([facility]) [address] [place] [address] RBC (Bld) [#/Vol] 4.34 10*6/uL Normal 3.80-5.00 [facility] Comment on above: Performed By: #### L [id number] #### [facility] [address] [place] [address] WBC (Bld) [#/Vol] 8.58 10*3/uL Normal 4.00-10.60 [facility] Comment on above: Performed By: #### L [id number] #### [facility] [address] [place] [address] COMPREHENSIVE METABOLIC PANE Alec 06-29-2024 Albumin [Mass/Vol] 3.8 g/dL Normal 3.5-5.7 [facility] Comment on above: Performed By: #### L [id number] ####[facility] ([facility] [place] [address] ALP [Catalytic activity/Vol] 64 U/L Normal 34-104 [facility] Comment on above: Performed By: #### L [id number] ####[facility] ([facility])[address] [place] [address] ALT [Catalytic activity/Vol] 35 U/L Normal 7-52 [facility] Comment on above: Performed By: #### L [id number] ####[facility] ([facility])[address] [place] [address] Anion gap [Moles/Vol] 12 mmol/L Normal 7-20 [facility] Comment on above: Performed By: #### L [id number] ####[facility] ([facility])[address] [place] [address] AST [Catalytic activity/Vol] 21 U/L Normal 13-39 [facility] Comment on above: Performed By: #### L [id number] ####[facility] ([facility])[address] [place] [address] Bilirubin [Mass/Vol] 0.4 mg/dL Normal 0.3-1.0 [facility] Comment on above: Performed By: #### L [id number] ####[facility] ([facility])[address] [place] [address] Calcium [Mass/Vol] 8.5 mg/dL Low 8.6-10.3 [facility] Comment on above: Performed By: #### L [id number] ####[facility] ([facility])[address] [place] [address] Chloride [Moles/Vol] 112 mmol/L High 98-107 [facility] Comment on above: Performed By: #### L [id number] ####[facility] ([facility])[address] [place] [address] CO2 [Moles/Vol] 22 mmol/L Normal 21-31 [facility] Comment on above: Performed By: #### L [id number] ####[facility] ([facility])[address] [place] [address] Creatinine [Mass/Vol] 0.92 mg/dL Normal 0.60-1.20 [facility] Comment on above: Performed By: #### L [id number] ####[facility] ([facility])[address] [place] [address] GLOMERULAR FILTRATION RATE ML/MIN/1.73 SQ M.PREDICTED 71.3 mL/min/1.73m*2 Normal >60.0 [facility] Comment on above: Result Comment: [facility]???s estimated glomerular filtration rate (eGFR) [...] of individuals. Performed By: #### L [id number] ####[facility] ([facility])[address] [place] [address] Glucose [Mass/Vol] 108 mg/dL High 70-100 [facility] Comment on above: Performed By: #### L [id number] ####[facility] ([facility])[address] [place] [address] Potassium [Moles/Vol] 3.7 mmol/L Normal 3.5-5.1 [facility] Comment on above: Performed By: #### L [id number] ####[facility] ([facility])[address] [address] Protein [Mass/Vol] 6.1 g/dL Normal 6.0-8.3 [facility] Comment on above: Performed By: #### L [id number] ####[facility] ([facility])[address] [facility] [place] [address] Sodium [Moles/Vol] 142 mmol/L Normal 136-145 [facility] Comment on above: Performed By: #### L [id number] ####[facility] ([facility])[address] [place] [address] Urea nitrogen [Mass/Vol] 11 mg/dL Normal 7-25 [facility] Comment on above: Performed By: #### L [id number] ####[facility] ([facility])[address] [place] [address] UREA NITROGEN/CREATININE (MASS RATIO) IN SER/PLAS 12.0 Normal [facility] Comment on above: Performed By: #### L [id number] ####[facility] ([facility])[address] [place] [address] MAGNESIUMon 06-29-2024 Magnesium [Mass/Vol] 1.7 mg/dL Low 1.9-2.7 [facility] Comment on above: Performed By: #### L [id number] ####[facility] ([facility])[address] [place] [address] PHOSPHORUSon 06-29-2024 Magnesium [Mass/Vol] 2.9 mg/dL Normal 2.5-5.0 [facility] Comment on above: Performed By: #### L [id number] ####[facility] ([facility])[address] [place] [address] PROTIME-INRon 06-29-2024 INR IN PPP BY COAGULATION ASSAY 0.99 Normal 0.90-1.10 [facility] Comment on [...] 1995;108:231S-246S. Performed By: #### L [id number] #### [facility] ([facility]) [address] [place] [address] PROTHROMBIN TIME (PT) IN PPP BY COAGULATION ASSAY 13.1 Seconds Normal 12.3-14.8 [facility] Comment on above: Performed By: #### L [id number] #### [facility] ([facility]) [address] [place] [address] TROPONIN Ion 06-29-2024 Troponin I.cardiac [Mass/Vol] 0.10 ng/mL High 0.00-0.04 [facility] Comment on above: Performed By: #### L [id number] ####[facility] ([facility])[address] [place] [address] Office Visiton 06-21-2024 Follow-up visit [id number] EmmadamianbebeAby S 1965 F Date Provider Department Center 06/21/2024 GOMEZ KENDALL RIAZ [place] Family History Problem Relation Age of Onset Lung cancer Mother No Known Problems Father Lung cancer Sister Family Status - Relation Status Age at Mother Father Sister Level of Service:[address] [place] OFFICE/OUTPATIENT ESTABLISHED MOD MDM 30 MIN Normal [facility] Office Visiton 05-26-2024 Follow-up visit [id number] RohanAby S 1965 F Date Provider Department Center 05/26/2024 BIJAN LAWLER RIAZ [place] Family History Problem Relation Age of Onset Lung cancer Mother No Known Problems Father Lung cancer Sister Family Status - Relation Status Age at Mother Father Sister Level of Service:22324 [place] OFFICE/OUTPATIENT NEW MODERATE MDM 45 MINUTES Normal [facility] Outside Colonoscopyon 2022 Outside Colonoscopy [id number] 0CD:127 Normal [facility] Reminderson 11-27-2022 Reminders - From: Na Hayes LPN To: Olga - Clinical; Sent: 11/27/2022 12:46:10 EST Show up: 10/25/2032 07:00:00 EST Subject: colonoscopy recall Due Date/Time: 11/25/2032 07:00:00 EST Reminder/Recall Patient is due for screening colonoscopy 11/25/2032. Normal [facility] Lab Reportson 11-24-2022 Lab Reports [id number] 0CD:127 Normal [facility] Covid-19 PCR ([facility])on 10-24 SARS-CoV-2 (COVID-19) RNA BECK+probe Ql (Unsp spec) Not detected Normal NOT DETECTED [facility] Comment on above: Result Comment: This test is not yet approved or cleared by the [place] FDA. When there are no FDA-approved or cleared tests available, and other criteria are met, FDA can make tests available under an emergency access mechanism called an Emergency Use Authorization (EUA). The EUA for this test is supported by the [place] [employer] of Health and Human Service's (HHS's) declaration [...] consistent with SARS-CoV-2. Performed By: #### [facility] #### [facility] [address] [place] [address] Dr. Rich Cutler Consent for Procedure/Surger n 10-07-2022 Consent for Procedure/Surgery [id number] 0CD:127 Normal [facility] Ambulatory Visit Summaryon 1 12-06-2021 Ambulatory [...] Allergic conjunctivitis Anticoagulated Kidney stones Normal [facility] VC VENOUS REFLUX NINO LMTon 1 12-02-2021 VC VENOUS REFLUX NINO LMT Patient: ABY MADRIGAL Exam Date: 10/02/2022 : 1965 Gender:F Ordering : DR KENDRA MORAN . Admission #: [id number] Family : Order #: [id number] CLICK HERE TO VIEW EXAM RADIOLOGY REPORT [...] chronic thrombus visualized Compressibility: Normal Flow: Normal [employer]ing [employer]: Dist/med calf 3.3mm with 0s reflux. Tech Note: Incompetent SFJ and GSV. Patent varicose vein mid/med calf 2.9mm with 0s reflux. Patent varicose vein prox/post calf 3.8mm with 0s reflux. Patent varicose vein dist/med thigh 3.8mm with 2.0s reflux. CONCLUSION: 1. Mild right and [id number] left great saphenous vein venous insufficiency with dilatation 2. Left saphenous popliteal junction reflux 3. Mild left anterior accessory saphenous vein venous insufficiency without dilatation 4. Small bilateral incompetent varicose veins Dictated by: Adelia Lezama MD on 10/02/2022 at 13:36 Approved by: Adelia Lezama MD on 10/02/2022 at 13:52 Normal [facility] ECHOCARDIO M/2D COMPLETEon 1 11-30-2021 ECHOCARDIO M/2D COMPLETE Patient: ABY MADRIAGL Exam Date: 09/30/2022 : 1965 Gender:F Ordering : DR KENDRA MORAN . Admission #: [id number] Family : Order #: [id number] CLICK HERE TO VIEW EXAM ECHOCARDIOGRAM REPORT [...] Spence M.D. on 09/30/2022 at 18:37 Normal [facility] BNPon 09-24-2022 Natriuretic peptide B (Bld) [Mass/Vol] 501.0 pg/mL Normal <=900.0 [facility] Comment on above: Performed By: #### C VDTB #### [facility] [address] [place] [address] Dr. Rich Cutler CBC AUTO DIFFon 09-24-2022 BASO # 0.1 103/ul Normal 0.0-0.1 [facility] Comment on above: Performed By: #### C VDTB #### [facility] [address] [place] [address] Dr. Rich Cutler Basophils/100 WBC (Bld) 0.8 % Normal 0.2-2.0 [facility] Comment on above: Performed By: #### C VDTBH #### [facility] [address] [place] [address] Dr. Rich Cutler EO # 0.3 103/ul Normal 0.0-0.7 [facility] Comment on above: Performed By: #### C VDTBH #### [facility] [address] [place] [address] Dr. Rich Cutler Eosinophils/100 WBC (Bld) 3.4 % Normal 0.9-7.0 [facility] Comment on above: Performed By: #### C VDTBH #### [facility] [address] [place] [address] Dr. Rich Cutler Erythrocyte distribution width (RBC) [Ratio] 13.3 % Normal 11.0-15.0 [facility] Comment on above: Performed By: #### C VDTBH #### [facility] [address] [place] [address] Dr. Rich Cutler Hematocrit (Bld) [Volume fraction] 40.5 % Normal 36.0-48.0 [facility] Comment on above: Performed By: #### C VDTBH #### [facility] [address] [place] [address] Dr. Rich Cutler Hemoglobin (Bld) [Mass/Vol] 13.1 g/dL Normal 12.0-16.0 [facility] Comment on above: Performed By: #### C VDTBH #### [facility] [address] [place] [address] Dr. Rich Cutler IG # 0.02 10e3/ul Normal 0.00-0.03 [facility] Comment on above: Performed By: #### C VDTBH #### [facility] [address] [place] [address] Dr. Rich Cutler IG % 0.3 % Normal 0.0-0.5 [facility] Comment on above: Performed By: #### C VDTBH #### [facility] [address] [place] [address] Dr. Rich Cutler LYMPH # 2.7 103/ul Normal 1.2-3.8 [facility] Comment on above: Performed By: #### C VDTBH #### [facility] [address] [place] [address] Dr. Rich Cutler Lymphocytes/100 WBC (Bld) 35.4 % Normal 20.5-60.0 [facility] Comment on above: Performed By: #### C VDTBH #### [facility] [address] [place] [address] Dr. Rich Cutler MANUAL DIFF REQ NO Normal [facility] Comment on above: Performed By: #### C VDTBH #### [facility] [address] [place] [address] Dr. Rich Cutler MCH (RBC) [Entitic mass] 28.2 pg Normal 26.7-34.0 [facility] Comment on above: Performed By: #### C VDTBH #### [facility] [address] [place] [address] Dr. Rich Cutler MCHC (RBC) [Mass/Vol] 32.3 g/dL Normal 29.9-35.2 [facility] Comment on above: Performed By: #### C VDTBH #### [facility] [address] [place] [address] Dr. Rich Cutler MCV (RBC) [Entitic vol] 87.3 fL Normal 81.0-99.0 [facility] Comment on above: Performed By: #### C VDTBH #### [facility] [address] [place] [address] Dr. Rich Cutler MONO # 0.5 103/ul Normal 0.3-0.8 [facility] Comment on above: Performed By: #### C VDTBH #### [facility] [address] [place] [address] Dr. Rich Cutler Monocytes/100 WBC (Bld) 6.5 % Normal 1.7-12.0 [facility] Comment on above: Performed By: #### C VDTBH #### [facility] [address] [place] [address] Dr. Rich Cutler NEUT # 4.1 103/ul Normal 1.4-6.5 [facility] Comment on above: Performed By: #### C VDTBH #### [facility] [address] [place] [address] Dr. Rich Cutler Neutrophils/100 WBC (Bld) 53.6 % Normal 43.0-75.0 [facility] Comment on above: Performed By: #### C VDTBH #### [facility] [address] [place] [address] Dr. Rich Cutler Platelet mean volume (Bld) [Entitic vol] 10.3 fL Normal 9.5-13.5 [facility] Comment on above: Performed By: #### C VDTBH #### [facility] [address] [place] [address] Dr. Rich Cutler PLT 283 103/ul Normal 150-450 [facility] Comment on above: Performed By: #### C VDTBH #### [facility] [address] [place] [address] Dr. Rich Cutler RBC 4.64 106/ul Normal 4.20-5.40 [facility] Comment on above: Performed By: #### C VDTBH #### [facility] [address] [place] [address] Dr. Rich Cutler WBC 7.6 103/ul Normal 4.0-11.0 [facility] Comment on above: Performed By: #### C VDTBH #### [facility] [address] [place] [address] Dr. Rich Cutler INSULINon 09-24-2022 Insulin 15.1 uIU/mL Normal 2.6-24.9 [facility] Comment on above: Performed By: #### C VDTBH #### [facility] [address] [place] [address] Dr. Rich Cutler PROF 14(COMP METB)on 022 Albumin [Mass/Vol] 3.5 g/dL Normal 3.4-5.0 [facility] Comment on above: Performed By: #### C VDTBH #### [facility] [address] [place] [address] Dr. Rich Cutler Albumin/Globulin [Mass ratio] 1.0 {ratio} Normal [facility] Comment on above: Performed By: #### C VDTBH #### [facility] [address] [place] [address] Dr. Rich Cutler ALP [Catalytic activity/Vol] 91 U/L Normal 46-116 [facility] Comment on above: Performed By: #### C VDTBH #### [facility] [address] [place] [address] Dr. Rich Cutler ALT [Catalytic activity/Vol] 47 U/L Normal 14-59 [facility] Comment on above: Performed By: #### C VDTBH #### [facility] [address] [place] [address] Dr. Rich Cutler Anion gap [Moles/Vol] 11.7 mmol/L Normal [facility] Comment on above: Performed By: #### C VDTBH #### [facility] [address] [place] [address] Dr. Rich Cutler AST [Catalytic activity/Vol] 24 U/L Normal 15-37 [facility] Comment on above: Performed By: #### C VDTBH #### [facility] [address] [place] [address] Dr. Rich Cutler Bilirubin [Mass/Vol] 0.2 mg/dL Normal 0.2-1.0 [facility] Comment on above: Performed By: #### C VDTBH #### [facility] [address] [place] [address] Dr. Rich Cutler Calcium [Mass/Vol] 8.9 mg/dL Normal 8.5-10.1 [facility] Comment on above: Performed By: #### C VDTBH #### [facility] [address] [place] [address] Dr. Rich Cutler Chloride [Moles/Vol] 105 mmol/L Normal 98-107 [facility] Comment on above: Performed By: #### C VDTBH #### [facility] [address] [place] [address] Dr. Rich Cutler CO2 [Moles/Vol] 28.1 mmol/L Normal 21.0-32.0 [facility] Comment on above: Performed By: #### C VDTBH #### [facility] [address] [place] [address] Dr. Rich Cutler Creatinine [Mass/Vol] 1.13 mg/dL Critically high 0.55-1.02 [facility] Comment on above: Performed By: #### C VDTBH #### [facility] [address] [place] [address] Dr. Rich Cutler EGFR-AF EMIRATI 60 mL/min/1.73m2 Normal >=60 Th [facility] Comment on above: Performed By: #### C VDTBH #### [facility] [address] [place] [address] Dr. Rich Cutler EGFR-NON AF EMIRATI 49 mL/min/1.73m2 Critically low >=60 [facility] Comment on above: Performed By: #### C VDTBH #### [facility] [address] [address] [address] Rich Cutler Globulin (S) [Mass/Vol] 3.5 g/dL Normal [facility] Comment on above: Performed By: #### C VDTBH #### [facility] [address] [address] [address] Rich Cutler Glucose [Mass/Vol] 119 mg/dL Critically high 74-106 T [facility] Comment on above: Performed By: #### C VDTBH #### [facility] [address] [place] [address] Dr. Rich Cutler Potassium [Moles/Vol] 3.8 mmol/L Normal 3.5-5.1 [facility] Comment on above: Performed By: #### C VDTBH #### [facility] [address] [place] [address] Dr. Rich Cutler Protein [Mass/Vol] 7.0 g/dL Normal 6.4-8.2 [facility] Comment on above: Performed By: #### C VDTBH #### [facility] [address] [place] [address] Dr. Rich Cutler Sodium [Moles/Vol] 141 mmol/L Normal 136-145 [facility] Comment on above: Performed By: #### C VDTBH #### [facility] [address] [place] [address] Dr. Rich Cutler Urea nitrogen [Mass/Vol] 16.0 mg/dL Normal 7.0-18.0 [facility] Comment on above: Performed By: #### C VDTBH #### [facility] [address] [place] [address] Dr. Rich Cutler Urea nitrogen/Creatinine [Mass ratio] 14.2 mg/mg Normal [facility] Comment on above: Performed By: #### C VDTBH #### [facility] [address] [address] [address] Rich Cutler TROPONIN, HIGH SENSITIVITYon 09-24-2022 HSTROP 10.6 pg/mL Normal 4.0-51.3 [facility] Comment on above: Result Comment: CUT- OFF POINTS HAVE BEEN ESTABLISHED BASED ON THE FOURTH UNIVERSAL DEFINITIONS OF MYOCARDIAL INFARCTION. THE UPPER REFERENCE LIMIT (URL) OF TROPONIN, DEFINED THE 99TH PERCENTILE OF cTnI DISTRIBUTION IN A REFERENCE POPULATION, HAS BEEN CONFIRMED THE DECISION THRESHOLD FOR [place] DIAGNOSIS. Performed By: #### [facility] #### [facility] [address] [place] [address] Dr. Rich Cutler XR CHEST 1 Von [...] [facility] HU[facility]HRIES Date: 2022-09-24 04:08 Normal [facility] CBC AUTO DIFFon 09-23-2022 BASO # 0.1 103/ul Normal 0.0-0.1 [facility] Comment on above: Performed By: #### C BC #### [facility] [address] [place] [address] Dr. Rich Cutler Basophils/100 WBC (Bld) 0.8 % Normal 0.2-2.0 [facility] Comment on above: Performed By: #### C BC #### [facility] [address] [address] [address] Rich Cutler EO # 0.2 103/ul Normal 0.0-0.7 [facility] Comment on above: Performed By: #### C BC #### [facility] [address] [place] [address] Dr. Rich Cutler Eosinophils/100 WBC (Bld) 3.5 % Normal 0.9-7.0 [facility] Comment on above: Performed By: #### C BC #### [facility] [address] [place] [address] Dr. Rich Cutler Erythrocyte distribution width (RBC) [Ratio] 13.4 % Normal 11.0-15.0 [facility] Comment on above: Performed By: #### C BC #### [facility] [address] [place] [address] Dr. Rich Cutler Hematocrit (Bld) [Volume fraction] 42.3 % Normal 36.0-48.0 [facility] Comment on above: Performed By: #### C BC #### [facility] [address] [place] [address] Dr. Rich Cutler Hemoglobin (Bld) [Mass/Vol] 13.4 g/dL Normal 12.0-16.0 [facility] Comment on above: Performed By: #### C BC #### [facility] [address] [place] [address] Dr. Rich Cutler IG # 0.03 10e3/ul Normal 0.00-0.03 [facility] Comment on above: Performed By: #### C BC #### [facility] [address] [place] [address] Dr. Rich Cutler IG % 0.5 % Normal 0.0-0.5 [facility] Comment on above: Performed By: #### C BC #### [facility] [address] [place] [address] Dr. Rich Cutler LYMPH # 2.9 103/ul Normal 1.2-3.8 [facility] Comment on above: Performed By: #### C BC #### [facility] [address] [place] [address] Dr. Rich Cutler Lymphocytes/100 WBC (Bld) 44.0 % Normal 20.5-60.0 [facility] Comment on above: Performed By: #### C BC #### [facility] [address] [place] [address] Dr. Rich Cutler MANUAL DIFF REQ NO Normal [facility] Comment on above: Performed By: #### C BC #### [facility] [address] [place] [address] Dr. Rich Cutelr MCH (RBC) [Entitic mass] 28.4 pg Normal 26.7-34.0 [facility] Comment on above: Performed By: #### C BC #### [facility] [address] [place] [address] Dr. Rich Cutler MCHC (RBC) [Mass/Vol] 31.7 g/dL Normal 29.9-35.2 [facility] Comment on above: Performed By: #### C BC #### [facility] [address] [place] [address] Dr. Rich Cutler MCV (RBC) [Entitic vol] 89.6 fL Normal 81.0-99.0 [facility] Comment on above: Performed By: #### C BC #### [facility] [address] [place] [address] Dr. Rich Cutler MONO # 0.4 103/ul Normal 0.3-0.8 [facility] Comment on above: Performed By: #### C BC #### [facility] [address] [place] [address] Dr. Rich Cutler Monocytes/100 WBC (Bld) 6.6 % Normal 1.7-12.0 [facility] Comment on above: Performed By: #### C BC #### [facility] [address] [place] [address] Dr. Rich Cutler NEUT # 2.9 103/ul Normal 1.4-6.5 [facility] Comment on above: Performed By: #### C BC #### [facility] [address] [place] [address] Dr. Rich Cutler Neutrophils/100 WBC (Bld) 44.6 % Normal 43.0-75.0 [facility] Comment on above: Performed By: #### C BC #### [facility] [address] [place] [address] Dr. Rich Cutler Platelet mean volume (Bld) [Entitic vol] 11.0 fL Normal 9.5-13.5 [facility] Comment on above: Performed By: #### C BC #### [facility] [address] [place] [address] Dr. Rich Cutler PLT 272 103/ul Normal 150-450 [facility] Comment on above: Performed By: #### C BC #### [facility] [address] [place] [address] Dr. Rich Cutler RBC 4.72 106/ul Normal 4.20-5.40 [facility] Comment on above: Performed By: #### C BC #### [facility] [address] [place] [address] Dr. Rich Cutler WBC 6.5 103/ul Normal 4.0-11.0 [facility] Comment on above: Performed By: #### C BC #### [facility] [address] [place] [address] Dr. Rich Cutler FREE THYROXINE INDEX T7on FTI 2.16 Normal 1.30-4.50 [facility] Comment on above: Performed By: #### L IPID, TSH, T7, CMP #### [facility] [address] [place] [address] Dr. Rich Cutler T3U 30.0 % Normal 30.0-39.0 [facility] Comment on above: Performed By: #### L IPID, TSH, T7, CMP #### [facility] [address] [place] [address] Dr. Rich Cutler T4 [Mass/Vol] 7.20 ug/dL Normal 4.80-13.90 [facility] Comment on above: Performed By: #### L IPID, TSH, T7, CMP #### [facility] [address] [place] [address] Dr. Rich Cutler GLYCOHEMOGLOBIN A1Con 2021 ADA RECOMMENDATION SEE BELOW Normal [facility] Comment on above: Result Comment: ADA RECOMMENDED LIMIT 4.0 - 6.0 ADA THERAPEUTIC TARGET < 7.0 ACTION SUGGESTED > 7.0 Performed By: #### A 1C #### [facility] [address] [place] [address] Dr. Rich Cutler Glucose [Mass/Vol] 128 mg/dL Normal [facility] Comment on above: Performed By: #### A 1C #### [facility] [address] [address] [address] Rich Cutler HbA1c (Bld) [Mass fraction] 6.1 % Normal 4.5-6.2 [facility] Comment on above: Performed By: #### A 1C #### [facility] [address] [address] [address] Rich Cutler IRONon 09-23-2022 Iron [Mass/Vol] 64.0 ug/dL Normal 50.0-170.0 [facility] Comment on above: Performed By: #### C VDTB #### [facility] [address] [place] [address] Dr. Rich Cutler LIPID PROFILEon 09-23-2022 CHOL-HDL RATIO NORM SEE BELOW Normal [facility] Comment on above: Result Comment: 3.3 - 4.4 LOW RISK 4.4 - 7.1 AVERAGE RISK 7.1 - 11.0 MODERATE RISK >11.0 HIGH RISK Performed By: #### L IPID, TSH, T7, CMP #### [facility] [address] [address] [address] Rich Cutler Cholesterol [Mass/Vol] 237 mg/dL Critically high <=200 [facility] Comment on above: Performed By: #### L IPID, TSH, T7, CMP #### [facility] [address] [address] [address] Rich Cutler Cholesterol in HDL [Mass/Vol] 44 mg/dL Normal 40-60 [facility] Comment on above: Performed By: #### L IPID, TSH, T7, CMP #### [facility] [address] [address] [address] Rich Cutler Cholesterol in LDL [Mass/Vol] 172.2 mg/dL Normal [facility] Comment on above: Performed By: #### L IPID, TSH, T7, CMP #### [facility] [address] [address] [address] Rich Cutler Cholesterol.total/C holesterol in HDL [Mass ratio] 5.4 {ratio} Normal [facility] Comment on above: Performed By: #### L IPID, TSH, T7, CMP #### [facility] [address] [address] [address] Rich Cutler HDL NORMAL > or = 60 mg/dl - LO W CARDIOVASCULAR RISK <40 mg/dl - HIGH CARDIOVASCULAR RISK Normal [facility] Comment on above: Performed By: #### L IPID, TSH, T7, CMP #### [facility] [address] [address] [address] Rich Cutler LDL CALC NORMAL SEE BELOW Normal [facility] Comment on above: Result Comment: <100 mg/dl OPTIMAL 100 - 129 mg/dl NEAR OR ABOVE OPTIMAL 130 - 159 mg/dl BORDERLINE HIGH 160 - 189 mg/dl HIGH >190 mg/dl VERY HIGH Performed By: #### L IPID, TSH, T7, CMP #### [facility] [address] [address] [address] Rich Cutler Triglyceride [Mass/Vol] 104 mg/dL Normal <=150 [facility] Comment on above: Performed By: #### L IPID, TSH, T7, CMP #### [facility] [address] [address] [address] Rich Cutler VLDL CALC 20.8 mg/dL Normal [facility] Comment on above: Performed By: #### L IPID, TSH, T7, CMP #### [facility] [address] [address] [address] Rich Cutler PROF 14(COMP METB)on 022 Albumin [Mass/Vol] 3.5 g/dL Normal 3.4-5.0 [facility] Comment on above: Performed By: #### L IPID, TSH, T7, CMP #### [facility] [address] [address] [address] Rich Cutler Albumin/Globulin [Mass ratio] 0.9 {ratio} Normal [facility] Comment on above: Performed By: #### L IPID, TSH, T7, CMP #### [facility] [address] [place] [address] Dr. Rich Cutler ALP [Catalytic activity/Vol] 93 U/L Normal 46-116 [facility] Comment on above: Performed By: #### L IPID, TSH, T7, CMP #### [facility] [address] [address] [address] Rich Cutler ALT [Catalytic activity/Vol] 44 U/L Normal 14-59 [facility] Comment on above: Performed By: #### L IPID, TSH, T7, CMP #### [facility] [address] [place] [address] Dr. Rich Cutler Anion gap [Moles/Vol] 8.5 mmol/L Normal [facility] Comment on above: Performed By: #### L IPID, TSH, T7, CMP #### [facility] [address] [place] [address] Dr. Rich Cutler AST [Catalytic activity/Vol] 26 U/L Normal 15-37 [facility] Comment on above: Performed By: #### L IPID, TSH, T7, CMP #### [facility] [address] [place] [address] Dr. Rich Cutler Bilirubin [Mass/Vol] 0.3 mg/dL Normal 0.2-1.0 [facility] Comment on above: Performed By: #### L IPID, TSH, T7, CMP #### [facility] [address] [place] [address] Dr. Rich Cutler Calcium [Mass/Vol] 9.0 mg/dL Normal 8.5-10.1 [facility] Comment on above: Performed By: #### L IPID, TSH, T7, CMP #### [facility] [address] [place] [address] Dr. Rich Cutler Chloride [Moles/Vol] 106 mmol/L Normal 98-107 [facility] Comment on above: Performed By: #### L IPID, TSH, T7, CMP #### [facility] [address] [place] [address] Dr. Rich Cutler CO2 [Moles/Vol] 31.0 mmol/L Normal 21.0-32.0 [facility] Comment on above: Performed By: #### L IPID, TSH, T7, CMP #### [facility] [address] [address] [address] Rich Cutler Creatinine [Mass/Vol] 1.11 mg/dL Critically high 0.55-1.02 [facility] Comment on above: Performed By: #### L IPID, TSH, T7, CMP #### [facility] [address] [place] [address] Dr. Rich Cutler EGFR-AF EMIRATI >60 Normal >=60 [facility] Comment on above: Performed By: #### L IPID, TSH, T7, CMP #### [facility] [address] [place] [address] Dr. Rich Cutler EGFR-NON AF EMIRATI 50 mL/min/1.73m2 Critically low >=60 [facility] Comment on above: Performed By: #### L IPID, TSH, T7, CMP #### [facility] [address] [place] [address] Dr. Rich Cutler Globulin (S) [Mass/Vol] 3.7 g/dL Normal [facility] Comment on above: Performed By: #### L IPID, TSH, T7, CMP #### [facility] [address] [place] [address] Dr. Rich Cutler Glucose [Mass/Vol] 121 mg/dL Critically high 74-106 T [facility] Comment on above: Performed By: #### L IPID, TSH, T7, CMP #### [facility] [address] [place] [address] Dr. Rich Cutler Potassium [Moles/Vol] 4.5 mmol/L Normal 3.5-5.1 [facility] Comment on above: Performed By: #### L IPID, TSH, T7, CMP #### [facility] [address] [place] [address] Dr. Rich Cutler Protein [Mass/Vol] 7.2 g/dL Normal 6.4-8.2 [facility] Comment on above: Performed By: #### L IPID, TSH, T7, CMP #### [facility] [address] [address] [address] Rich Cutler Sodium [Moles/Vol] 141 mmol/L Normal 136-145 [facility] Comment on above: Performed By: #### L IPID, TSH, T7, CMP #### [facility] [address] [address] [address] Rich Cutler Urea nitrogen [Mass/Vol] 16.0 mg/dL Normal 7.0-18.0 [facility] Comment on above: Performed By: #### L IPID, TSH, T7, CMP #### [facility] [address] [address] [address] Rich Cutler Urea nitrogen/Creatinine [Mass ratio] 14.4 mg/mg Normal [facility] Comment on above: Performed By: #### L IPID, TSH, T7, CMP #### [facility] [address] [address] [address] Rich Cutler TSHon 09-23-2022 TSH 3.915 uIU/mL Critically high 0.358-3.740 [facility] Comment on above: Performed By: #### L IPID, TSH, T7, CMP #### [facility] [address] [address] [address] Rich Cutler Physician Referralon 022 Physician Referral [phone] [id number] Normal [facility] Vital Signs Date Time Vital Sign Value Performing Clinician Deidre gagnon 06-01-2025 12:58-0400 Body height 162.6 cm Afsaneh Jacome [employer] Work Phone: [facility] 06-01-2025 12:58-0400 Body mass index (BMI) [Ratio] 33.27 kg/m2 Afsaneh Jacome [employer] Work Phone: [facility] 06-01-2025 12:58-0400 Body weight 87.91 kg Afsaneh Jacome [employer] Work Phone: [facility] 06-01-2025 12:58-0400 Diastolic blood pressure 78 mm[Hg] Afsaneh Jacome [employer] Work Phone: [facility] 06-01-2025 12:58-0400 Systolic blood pressure 130 mm[Hg] Afsaneh Jacome [employer] Work Phone: [facility] 03-03-2025 11:02-0400 Body height 160.02 cm [facility] 03-03-2025 11:02-0400 Body mass index (BMI) [Ratio] 35.6 kg/m2 [facility] 03-03-2025 11:02-0400 Body temperature 97.8 [degF] [facility] 03-03-2025 11:02-0400 Body weight 91.34 kg [facility] 03-03-2025 11:02-0400 Diastolic blood pressure 69 mm[Hg] [facility] 03-03-2025 11:02-0400 Heart rate 82 /min [facility] 03-03-2025 11:02-0400 Respiratory rate 18 /min [facility] 03-03-2025 11:02-0400 SaO2% (BldA) [Mass fraction] 96 % [facility] 03-03-2025 11:02-0400 Systolic blood pressure 108 mm[Hg] [facility] 03-02-2025 09:18-0400 Body height 162.6 cm Farzana Ely [employer] Work Phone: [facility] 03-02-2025 09:18-0400 Body mass index (BMI) [Ratio] 34.81 kg/m2 Farzana Ely [employer] Work Phone: [facility] 03-02-2025 09:18-0400 Body weight 91.99 kg Farzana Ely [employer] Work Phone: [facility] 03-02-2025 09:18-0400 Diastolic blood pressure 68 mm[Hg] Farzana Ely [employer] Work Phone: [facility] 03-02-2025 09:18-0400 Systolic blood pressure 118 mm[Hg] Farzana Ely [employer] Work Phone: [facility] 10-06-2022 15:36-0500 Blood Pressure Location Umm N[facility] 10-06-2022 15:36-0500 Diastolic blood pressure 86 mm[Hg] [facility] 10-06-2022 15:36-0500 Heart rate 72 /min [facility] N[facility] 10-06-2022 15:36-0500 Respiratory rate 16 /min [facility] N[facility] 10-06-2022 15:36-0500 Systolic blood pressure 126 mm[Hg] [facility] Encounters Encounter Date Encounter Type Care Provider Facility Start: 06-01-2025 End: 06-01-2025 Patient encounter procedure Afsaneh Muro Ayaz [employer] Work Phone: [facility] Work Phone: Start: 06-01-2025 End: 06-01-2025 Periodic preventive med est patient 40-64yrs Afsaneh Muro Ayaz [employer] Work Phone: [facility] Comment on above: Well woman exam with routine gynecological exam (Primary Dx) Start: 05-21-2025 End: 05-21-2025 ambulatory Kendra Moran MD Work Phone: [facility] Work Phone: Start: 05-21-2025 End: 05-21-2025 Patient encounter procedure Elie Jackson DO [facility] Work Phone: Start: 05-21-2025 End: 05-21-2025 Patient encounter procedure Elie Jackson DO [facility] Start: 05-21-2025 End: 05-21-2025 ambulatory Kendra Moran MD Work Phone: [facility] Work Phone: Start: 05-14-2025 End: 05-14-2025 ambulatory [facility] Start: 04-23-2025 End: 04-23-2025 ambulatory [facility] Start: 04-10-2025 End: 04-10-2025 ambulatory [facility] Start: 03-03-2025 End: 03-03-2025 ambulatory [facility] Work Phone: Start: 03-03-2025 End: 03-03-2025 Patient encounter procedure [facility] Work Phone: Start: 03-02-2025 End: 03-02-2025 ambulatory FARZANA [facility] Start: 03-02-2025 End: 03-02-2025 Office outpatient visit 15 minutes Farzana Muro [facility] C[employer] OFF [employer]ACHINE [employer] Work Phone: [facility] Comment on above: Genitourinary syndro me of menopause (Primary Dx); PCB (post coital bleeding) Start: 02-26-2025 End: 02-26-2025 ambulatory [facility] Start: 02-07-2025 End: 02-07-2025 ambulatory [facility] Start: 01-09-2025 End: 01-09-2025 ambulatory [facility] Start: 01-02-2025 End: 01-02-2025 ambulatory NONATEODORA FUCHS [facility] Start: 10-26-2024 End: 10-26-2024 [facility]ulatory [facility] Start: 10-03-2024 End: 10-03-2024 ambulatory [facility] Start: 09-04-2024 End: 09-04-2024 ambulatory [facility] Start: 08-29-2024 End: 08-29-2024 ambulatory [facility] Start: 08-04-2024 End: 08-04-2024 ambulatory [facility] Start: 07-20-2024 ambulatory [facility] Start: 07-20-[address] [facility] Ambulatory [facility] Start: 07-18-2024 ambulatory [facility] Start: 07-18-2024 End: 07-18-2024 Emergency department patient visit HERMINIA JULIAN [facility] Start: 07-18-2024 End: 07-18-2024 ambulatory [facility] Start: 07-11-2024 Evaluation and manag ement of inpatient [facility] Start: 07-11-2024 Emergency department patient visit FEDERICA JACOBSON [facility] Start: 07-11-2024 End: 07-12-2024 Evaluation and management of inpatient [facility] Start: 07-10-2024 End: 07-10-2024 ambulatory [facility] Start: 06-30-2024 Evaluation and manag ement of inpatient [facility] Start: 06-30-2024 Evaluation and manag ement of inpatient [facility] Start: 06-29-2024 End: 07-01-2024 Evaluation and management of inpatient KENDRA [facility] Start: 06-21-2024 End: 06-21-2024 ambulatory [facility] Start: 05-26-2024 End: 05-26-2024 ambulatory [facility] Start: 11-26-2022 Encounter for preprocedural laboratory examination DR UMM LANDON . [facility] Start: 11-25-2022 End: 11-26-2022 ambulatory Umm LANDON Facility:CD:[id number] Start: 11-20-2022 End: 11-21-[address] UMM LANDON . Facility:[facility] Start: 11-20-2022 End: 11-21-2022 Encounter for preprocedural laboratory examination DR UMM LANDON . Facility: Start: 10-06-2022 End: 10-07-2022 ambulatory Umm LANDON Facility:[facility] Start: 10-06-2022 End: 10-06-2022 Patient encounter procedure Umm LANDON [facility] Start: 10-02-2022 End: 10-03-[address] KENDRA MORAN . Facility: Start: 09-30-2022 End: 10-01-[address] KENDRA MORAN . Facility: Start: 09-28-2022 Encounter for genera l adult medical examination without abnormal findings DR KENDRA MORAN . [facility] Start: 09-24-2022 End: 09-24-[address] SYBIL CORDOVA . Facility: Start: 09-23-2022 End: 09-24-[address] KENDRA MORAN . Facility: Start: 09-23-2022 End: 09-24-2022 Encounter for general adult medical examination without abnormal findings DR KENDRA MORAN . Facility: Start: 09-14-[address] KENDRA MORAN . Facili ty:[facility] Procedures Date Procedure Procedure Detail Performing Clinician Start: 05-21-2025 X-ray of left knee, four views Kendra Moran MD Work Phone: Start: 05-21-2025 X-ray of right knee, two views Kendra Moran MD Work Phone: Start: 10-26-2024 Follow-up visit Follow-up RICHA VIRAMONTES Start: 08-29-2019 Cystoscopic removal of ureteric stent Umm LANDON Bilateral tubal ligation Ad LANDON Catheterization of l eft heart Umm LANDON Cholecystectomy Umm LANDON Cystoscopic insertio n of ureteric stent Umm JACQUESMami Dilation and curetta ge of uterus Umm JACQUESMami Vaginal hysterectomy Umm JACQUESMami Plan of Treatment Date Care Activity Detail Author Start: 06-01-2026 Adult BMI Screening Adult BMI Screening [facility] Start: 06-01-2026 Tobacco Screening Tobacco Screening [facility] Start: 03-02-2026 Adult BMI Screening Adult BMI Screening [facility] Start: 03-02-2026 Tobacco Screening Tobacco Screening [facility] Start: 07-23-2025 Influenza vaccination Influenza Vaccine [facility] Start: 06-01-2025 End: 06-01-2025 Patient encounter procedure 06/01/2025 1:00 PM EDT Office Visit [facility] [address] [place] [id number] Afsaneh Jacome, CUT OFF MACHINE [employer] [address] [place], [place] [id number] [facility] Start: 05-21-2025 X-ray of left knee, four views XR knee LT 4V* [facility] Start: 05-21-2025 X-ray of right knee, two views XR knee RT 2V [facility] Start: 05-21-2025 XR Knee - left 4 Views [facility] Start: 05-21-2025 XR Knee - right 2 Views [facility] Start: 07-23-2024 COVID-19 Vaccine ( season) COVID-19 Vaccine ( season) [facility] Start: 2014 Administration of varicella zoster vaccine Zoster (Shingles) Vaccine (1 of 2) [facility] Start: 1983 DTaP,Tdap and Td Vaccines (1 - Tdap) DTaP,Tdap and Td Vaccines (1 - Tdap) [facility] Start: 1982 Adult BMI Follow Up Plan Adult BMI Follow Up Plan [facility] Start: 1976 Depression Screening Depression Screening [facility] Immunizations Immunization Date Immunization Notes Care Provider Hailey slaughter 11-07-2021 influenza virus vaccine, unspecified formulation Farzana Lopeznelly C[employer]ACH[employer] Work Phone: [facility] 04-14-2021 SARS-CoV-2 (COVID-19 ) mRNA BNT-162b2 vax Umm JACQUESL [facility] 03-11-2021 SARS-CoV-2 (COVID-19 ) mRNA BNT-162b2 vax [facility]mm [facility] NEGATED: Highlighted row has not occurred!10-07-2021 influenza, injectable, quadrivalent, preservative free [facility] Payers Date Payer Category Payer Self-pay 2022 Medicaid [id number] 2022 Medicaid [id number] 2019 Private Health Insurance [id number] 2016 Unknown [id number] 1964 Unknown [id number] 2.16.8 [id number] 1964 Unknown [id number] 2.16.8 [id number] 1964 Unknown [id number] 2.16.84 [id number] 1964 Unknown [id number] 2.16.84 [id number] 1964 Unknown [id number] 2.16.84 [id number] 1964 Unknown [id number] 2.16.84 [id number] 1964 Unknown [id number] 2.16.84 [id number] 1964 Unknown [id number] 2.16.84 [id number] 1964 Unknown [id number] 2.16.84 [id number] 1964 Unknown [id number] 2.16. [id number] 1964 Unknown [id number] 2.16. [id number] 1964 Unknown [id number] 2.16.8 [id number] 1964 Unknown [id number] 2.16.8 [id number] 1959 Self-pay [id number] 1959 Unknown [id number] Unknown [id number] 2.16.8 [id number] Social History Date Type Detail Facility Start: 10-06-2022 End: 03-02-2025 Tobacco smoking status Ex-smoker (finding) [facility] Tobacco smoking status Never [facility] Start: 01-02-2021 End: 03-02-2025 Sex Assigned At Female [facility] Start: 10-07-2021 History of tobacco use Current smoke r [facility] History of tobacco use Cigarette Smoker P [facility] Start: 01-02-2021 End: 03-02-2025 Cigarettes smoked current (pack per day) - Reported 1 [facility] Start: 03-02-2025 Tobacco use and exposure Smokeless tobacco non-user [facility] Start: 03-02-2025 End: 06-01-2025 Alcoholic beverage intake Ex-drinker (finding) [facility] Start: 1965 Sex assigned at Not on file P [facility] Start: 06-27-2015 End: 03-03-2025 Sex Female (finding) [facility] Start: 1965 Sex Assigned At Female F [facility] Start: 10-07-2021 [facility] Functional Status Date Assessment Result Facility 10-06-2022 Functional Status N/A [facility] denisa Barba Clinical Notes 10-11-2022 to 06-01-2025 Afsaneh Jacome, CUT OFF MACHINE [employer] - 06/01/2025 1:00 PM EDT Note Date & Type Note Facility 06-01-2025 History of Present illness Narrative Aby Madrigal is a pleasant 59 y.o. 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 Hysterectomy: yes - [...] yes Last mammogram: 2 years ago at [facility], Dr. Moran orders them Dexa Scan: n/a Colonoscopy:1-2 years ago OB History 3 Para 2 Term AB 1 Living 2 SAB 1 IAB Ectopic Multiple Live Births 2 Past Medical History: Diagnosis Date Anxiety GERD (gastroesophageal reflux disease) Heart attack ([facility]) 06/29/2024 Past Surgical History: Procedure Laterality Date [...] nightly. (Patient not taking: Reported on 06/01/2025) citalopram (CeleXA) 20 mg tablet Take 20 [...] introitus.. (Patient not taking: Reported on 06/01/2025) 42.5 g 1 hydrOXYzine (ATARAX) 25 mg [...] kg (193 lb 12.8 oz) BMI 33.27 kg/m Physical Exam Vitals and nursing note reviewed. [...] provided. All questions answered. 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 ELVIN Singletary 06/01/25 1329 documented in this encounter [facility] Note [place] Cardiology - [facility] Subjective Aby Madrigal is a 59 y.o. year old female patient being seen for a follow up s/p [facility] ER visit. Patient states she [...] GERD (gastroesophageal reflux disease) Essential hypertension Sepsis ([facility]) TIA (transient ischemic attack) QURESHI (dyspnea on exertion) Hyperlipidemia Murmur, heart Anxiety Type 2 diabetes mellitus without complication, without long-term current use of insulin ([facility]) Chest pain Elevated troponin Hypomagnesemia NSTEMI (non-ST elevated myocardial infarction) (CMS/HCC) Hypokalemia Coronary artery disease involving tribe coronary artery of tribe heart without angina pectoris Depression, major, severe [...] V6. She was then admitted to [facility] on 07/11/2024 with NSTEMI. She underwent [...] on 01/31/2025 she was evaluated at the [facility] because of chest pain. Workup was [...] Head: Normocephalic and (more content not included)... [facility] 04-23-2025 Note SD Cardiology - [facility] Subjective Aby Madrigal is a 59 [...] infarction) (CMS/HCC) Hypokalemia Coronary artery disease involving tribe coronary artery of tribe heart without angina pectoris Depression, major, severe [...] V6. She was then admitted to [facility] on 07/11/2024 with NSTEMI. She underwent [...] on 01/31/2025 she was evaluated at the [facility] because of chest pain. Workup was [...] or rales. Chest: (more content not included)... [facility] 04-10-2025 Note REASON FOR VISIT + H [...] metoprolol - Jun 2019 CT A/P in [place], [place] performed for abd pain, incidentally detected [...] EC tablet, [place] (more content not included)... [facility] 03-03-2025 Evaluation note Diagnosis Onset Date Resolution Viral URI acute March 03 10:35am Strain of left knee acute May 21, 2025 2:00pm [facility] Work Phone: [phone]) 270-138004-11-2025 History of Present illness Narrative* Farzana Ely, CUT OFF MACHINE OPERATOR-COOK SHIP - 03/02/2025 8:45 AM EDT Aby Madrigal is a 59 y.o. female. [...] GERD (gastroesophageal reflux disease) Heart attack ([facility]) 06/29/2024 Hypertension MEDS Current Outpatient Medications Medication [...] by mouth nightly. (Patient not taking: Reported on03/02/2025) citalopram (CeleXA) 20 mg tablet Take 20 [...] additional to vaginal use, apply pea size amountto fingertip and rub in vulva and vaginal [...] ELVIN Ramos 03/02/25 1132 documented in this encounterFostoria City HospitalHappy Days - A New Musical [facility] [id number] Instructions* Patient Instructions* ELVIN Ramos - 03/02/2025 8:45 AM EDT [...] then a small pea-sized amount to your fingertipand rub cream into entrance of vagina, around urethra, clitoris, and labia. documented in this encounterFostoria City HospitalHappy Days - A New Musical [facility] [id number] NoteUT Cardiology - [facility] Subjective Aby Madrigal is a 59 [...] infarction) (CMS/HCC) Hypokalemia Coronary artery disease involving tribe coronary artery of tribe heart without angina pectoris Depression, major, severe [...] V6. She was then admitted to [facility] on 07/11/2024 with NSTEMI. She underwent [...] on 01/31/2025 she was evaluated at the [facility] because of chest pain. Workup was [...] sounds: Normal heart so (more content not included)...[facility]03-19-2025 NoteIR VENOGRAPHY VENOUS SAMPLE Procedure: Bilateral adrenal vein [...] advanced into the IVC and a 5 Grenadian vascular sheathwas placed. Selective catheterization of the right adrenal [...] by Gage Núñez MD on 02/07/2025 10:05 [facility] 01-18-2025 NotePatient contacted office, states she called [facility] Interventional Radiology to schedule the referral Dr. Christie had sent over, however no referral was received. Leather Sprayer faxed referral and recent visit note to [phone].[facility]02-18-2025 NoteREASON FOR VISIT + HPI: Aby Madrigal is a 59 y.o. [...] metoprolol - Jun 2019 CT A/P in [place], [place] performed for abd pain, incidentally detected [...] ER (Imdur) 60 mg (more content not included)...[facility]02-03-2025 NoteWriter spoke with Tram at [facility] regarding this patient. Tram said the way the order was placed through the system they just didn't see it, Tarm assured short story writer that patient was being scheduled at the secondary infusion location. Any questions or concerns call Tram at [phone]. [facility]12-05-2024 Note Attestation signed by Richa Viramontes MD at 10/27/2024 12:07 PM I have seen and examined the patient. I reviewed the resident/fellow note and I agree with the findings and plan. Richa Viramontes MD Interventional Pulmonary Medicine Pulmonary and Critical Care Medicine [facility] Visit Note Patient: Aby Madrigal Age: 59 y.o. : 1965 Account No.: [id number] Chief complaint: RML nodule HPI Aby Madrigal is a 59 y.o. female with hypertension, CAD status post PCI recently in June 2024, cigarette smoking who is presenting to IP clinic via telemedicine as a new patient after being referred by Dr. Jarocho Saldaña. Patient reports recent admission to [facility] for hypertensive emergency. This prompted a CT of the chest which was positive for right middle lobe nodule. She then underwent PCI here at [facility] in June. She is currently on [...] PFTs on file. CTA chest 04/21/2024 at [facility]: Right middle lobe approximately 1.2 cm solid nodule appreciated Subsequent PET CT 2024 at [facility]: Right middle lobe nodule is [...] pretest probability of (more content not included)... [facility]11-12-2024 NoteREASON FOR VISIT + HPI: Aby Madrigal is a 59 y.o. [...] metoprolol - CT A/P Jun 2019 in [place], [place] performed for abd pain, incidentally detected [...] Take 25 mg by (more content not included)...[facility]10-14-2024 NoteUT Cardiology - [facility] Subjective Aby Madrigal is a 59 y.o. year old female patient being seen for follow up [facility] in Jun 2024 for hypotension. She [...] infarction) (CMS/HCC) Hypokalemia Coronary artery disease involving tribe coronary artery of tribe heart without angina pectoris Depression, major, severe [...] V6. She was then admitted to [facility] on 07/11/2024 with NSTEMI. She underwent [...] Mood and Affect: M (more content not included)...[facility]08-29-2024 Note Attestation signed by Richa Viramontes MD [...] Age: 59 y.o. : 1965 Account No.: [id number] Referring physician: Dr. Jarocho Saldaña Chief complaint: RML nodule HPI Aby Madrigal is a 59 y.o. female with hypertension, CAD status post PCI recently in June 2024,, cigarette smoking who is presenting to clinic via telemedicine as a new patient after being referred by Dr. Jarocho Saldaña. Patient reports recent admission to [facility] for hypertensive emergency. This prompted a CT of the chest which was positive for right middle lobe nodule. She then underwent PCI here at [facility] in June. She is currently on [...] PFTs on file. CTA chest 04/21/2024 at [facility]: Right middle lobe approximately 1 cm spiculated nodule appreciated Subsequent PET CT 2024 at [facility]: Right middle lobe nodule is [...] use alcohol. She reports (more content not included)...[facility] 07-18-2024 NoteREASON FOR VISIT + HPI: Aby Madrigal is a 59 y.o. [...] metoprolol - CT A/P Jun 2019 in [place], [place] performed for abd pain, incidentally detected [...] Date Abnormal ECG Diabetes mellitus ([facility]) Hyperlipidemia Hypertension Obstructive sleep apnea Panic attacks Stroke ([facility]) Past Surgical History: Procedure Laterality Date CEREBRAL [...] , Rfl: carvedilol (C (more content not included)...[facility] 07-18-2024 Note07/18/24 1001 Referral Data Referral Source cellophane worker Referral Reason Information Patient Information Primary Caregiver Self Activities of Daily Living Assistive Device Not applicable Living Arrangement (Current/Prior to Hospitalization) Private residence Behavior Oriented Discharge Planning Support Systems Children;Family members Type of Residence Private residence Patient's goal for discharge home Patient recently discharged from [facility] to home. Resides at home alone. Discharge plan is home.[facility]08-27-2024 NotePatient sent to ED for hypotension and dizziness/lightheadednessUniversity Hospitals [facility]08-21-2024 NoteHospital Medicine Discharge Summary Final Discharge Diagnosis: NSTEMI Admission Diagnosis: Hypokalemia [E87.6] NSTEMI (non-ST elevated myocardial infarction) ([facility]) [I21.4] Hypertensive urgency [I16.0] Adenoma of left adrenal gland [D35.02] Resistant hypertension [I1A.0] Atherosclerosis of tribe coronary artery of tribe heart without angina pectoris [I25.10] Coronary artery disease involving tribe coronary artery of tribe heart with unstable angina pectoris ([facility]) [I25.110] Type 2 diabetes mellitus without complication, without long-term current use of insulin ([facility]) [E11.9] Hospital course: 59yoF with CAD s/p LAD SARKIS 11 days ago who was admitted to [facility] on 07/11 for chest pain. patient initially presented to [facility] for uncomfortable feeling in her chest and was found to have elevated troponins and new ischemic changes on EKG. Infusion and cardiology was consulted transferred to [facility] for further evaluation. Initially the patient had blood pressures up to 192/65 for which home medications were restarted. Troponins at [facility] were negative and there were no EKG changes concerning for ischemia. Echo was performed which showed EF 70 to 75%. she was cleared from cardiology for discharge and had resolved. Surgical, Invasive or Diagnostic Procedures Done During Admission: None Consultations During Admission: Cardiology Dear Dr. Lidia MD, [facility] is advised to follow up [...] Center 07/18/2024 8:20 AM Feng Christie MD [facility] 07/20/2024 1:00 PM Richa Viramontes MD [facility] ONC [facility] 09/05/2024 1:00 PM Bijan Mitchell MD [facility] Your medication list START taking [...] Your Medications These medications were sent to [facility]/pharmacy #[id number] [facility] [address] [address] isosorbide mononitrate ER 60 mg 24 hr [...] Renin activity In process (more content not included)...[facility]08-20-2024 Note 07/11/24 181 Financial Resource Strain How hard is it [...] place to sleep or slept in a long term (including now)? N Transportation Needs In the [...] than 3 How often do you attend episcopalian or pentecostalism services? Never Do you belong to any clubs or organizations such as episcopalian groups, unions, fraternal or athletic groups, or [...] In the past 12 months has the [employer], gas, oil, or water saperatec threatened to shut off services in your home? 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 Source cellophane worker Referral Reason Psychosocial assessment Patient Information Primary Caregiver Self Accompanied by/Relationship Daughter (Rosita); Btlvunwd-ej-zyo (Yesy) Activities of Daily Living Assistive Device Not applicable Living Arrangement (Current/Prior to Hospitalization) Private residence (Lives at home by herself) Ambulation Independent Dressing Independent Feeding Independent Behavior Oriented (A&Ox4) Communication Can write;Talks;Understands speaking;Understands Surinamese;Reads Income Information Income Source Unemployed (receives survivor benefits) Discharge Planning Support Systems Children;Family members (daughter, kznuovcl-un-dmn, son) Type of Residence Private residence Will patient need Precert for Post Acute needs? No Patient's goal for discharge Home Does the patient need discharge transport arranged? No Completed social work assessment and SDoH screening. Patient was A&Ox4 at this time. Patient's daughter, Rosita, and patient's uixcrumb-ax-btm, Yesy, were currently present at bedside. Patient reported that she lives at home by herself and she identified her support system as her daughter, Rosita, her fbmoewlw-iu-znb, Yesy, and her son, Elie. Patient endorsed [...] denied any alcohol consumption or recreational drug use.[facility] 07-11-2024 NoteHospital Medicine History and Physical 07/11/2024 12:19 PM THE HOSPITALIST TEAM PREFERS TO USE [employer] FOR COMMUNICATION 7AM-7PM. IF I DO NOT RESPOND WITHIN 15 MINUTES, PLEASE PAGE ME/CALL THROUGH THE RECOATING MACHINE OPERATOR. FROM 7PM-7AM, PLEASE PAGE [phone](COVR) Chief Complaint Chief Complaint Patient presents with [...] stent placement 11 days ago at [facility] presented to ER as a transfer from [facility] for NSTEMI. Patient states that last [...] Noted Hypokalemia 07/11/2024 Coronary artery disease involving tribe coronary artery of tribe heart with unstable angina pectoris ([facility]) 07/11/2024 Anxiety 06/30/2024 Type 2 diabetes mellitus without complication, without long-term current use of insulin ([facility]) 06/30/2024 Chest pain 06/30/2024 Elevated troponin 06/30/2024 Hypertensive urgency 06/30/2024 Hypomagnesemia 06/30/2024 QURESHI (dyspnea on exertion) 05/26/2024 Atherosclerosis of tribe coronary artery of tribe heart without angina pectoris 05/26/2024 Hyperlipidemia 05/26/2024 Murmur, heart 05/26/2024 Sepsis ([facility]) 07/14/2019 BV (bacterial vaginosis) 10/18/2017 GERD (gastroesophageal reflux disease) 10/18/2017 Essential hypertension 10/18/2017 TIA (transient ischemic attack) 10/18/2017 NSTEMI (non-ST elevated myocardial infarction) ([facility]) 06/29/2024 Assessment and Plan NSTEMI CAD, s/p [...] daily for GI prophylaxis (more content not included)...[facility]08-19-2024 Note [facility] Note Reason for cardiology [...] Take 1 tablet (more content not included)... [facility]08-10-2024 NoteHospital Medicine Discharge Summary Final Discharge Diagnosis: # [...] presents a direct mission from [facility] with a chief complaint of chest [...] her EKG. She went to [facility] for the symptoms. Labs were completed [...] a heparin drip and transferred to [facility] for likely cardiac cath. # NSTEMI [...] - Continue metformin. Dear Dr. Lidia MD, [facility] is advised to follow up with you within 1-2 weeks. Items to follow up in ambulatory setting: None Follow-up with: Cardiology and Nephrology Scheduled appointments: Future Appointments Date Time Provider Department Center 07/10/2024 2:20 PM iBjan Mitchell MD [facility] Your medication list START taking these [...] Your Medications These medications were sent to [facility]/pharmacy #[id number] [facility] [address] [address] carvedilol 25 mg tablet cloNIDine 0.1 mg [...] 7 days Lab Units (more content not included)...[facility]08-10-2024 NoteUTP CARDIOLOGY INPATIENT PROGRESS NOTE Reason for follow up: NSTEMI Subjective Aby Madrigal, a 59 y.o. female patient, is transferred from [facility] for continuity of care. Patient reports that 3 days ago, she woke up in the mid of the night with indigestion, and a feeling fullness, but no pressure like chest pain. She presented to [facility], where she was found to be [...] -- -- 61 14 96 % -- 06/30/24924 166/70 -- -- 63 12 95 % [...] MONOSABS 0.56 06/29/2024 E (more content not included)...[facility]08-09-2024 NotePatient: Aby Madrigal Procedure Information Date/Time: 06/30/24 1600 Procedure: Coronary angiography (Bilateral) Location: [facility] EXERCISE SCIENCE INSTRUCTOR 3 / [facility] VASCULAR LAB (Cath) Providers: Brunilda Cuellar [...] products. Plan discussed with attending. Additional Equipment RequestsUnCleveland Clinic Hillcrest Hospital08-09-2024 Note 06/30/24 1446 Referral Data Referral Source cellophane worker Referral Reason Follow up;Information Patient Information Primary Caregiver Self Accompanied by/Relationship daughters at bedside Activities of Daily Living Assistive Device Not applicable Living Arrangement (Current/Prior to Hospitalization) Private residence (three to four stairs) Ambulation Independent Dressing Independent Feeding Independent Behavior Oriented Communication Talks;Understands speaking;Understands Surinamese Discharge Planning Support Systems Children (daughters will [...] or questions for social work at this time.[facility]08-09-2024 Note06/30/24 1431 Admission Assessment Questions Verify insurance with [...] Interested Does the patient have a case aide assigned to them through their insurance? No [...] able to send link and activate MyChart? NoUnCleveland Clinic Hillcrest Hospital08-09-2024 NoteCase was discussed with the SALVADOR on 06/29/2024. I agree with the history, physical, assessment, and plan of care. I discussed the findings and therapeutic plan. I agree with the documentation, except for any updates below. Maurice Nogueira MDUnCleveland Clinic Hillcrest Hospital08-09-2024 NoteHospital Medicine History and Physical 06/30/2024 1:15 AM THE HOSPITALIST TEAM PREFERS TO USE [employer] CHAT FOR COMMUNICATION 7AM-7PM. IF I DO NOT RESPOND WITHIN 15 MINUTES, PLEASE PAGE ME/CALL THROUGH THE RECOATING MACHINE OPERATOR. FROM 7PM-7AM, PLEASE PAGE [phone](COVR) Chief Complaint Direct admission from [facility] with CP History of Present Illness Aby Madrigal is an 59 y.o. female who came from home with past medical history of anxiety, DM2, hypertension, IBS presents a direct mission from [facility] with a chief complaint of chest [...] her EKG. She went to [facility] for the symptoms. Labs were completed [...] a heparin drip and transferred to [facility] for likely cardiac cath. Review of [...] long-term current use of insulin ([facility]) 06/30/2024 Chest pain 06/30/2024 Elevated troponin 06/30/2024 Hypertensive urgency 06/30/2024 QURESHI (dyspnea on exertion) 05/26/2024 Atherosclerosis of tribe coronary artery of tribe heart without angina pectoris 05/26/2024 Hyperlipidemia 05/26/2024 Murmur, heart 05/26/2024 Sepsis ([facility]) 07/14/2019 BV (bacterial vaginosis) 10/18/2017 GERD (gastroesophageal reflux disease) 10/18/2017 Essential hypertension 10/18/2017 TIA (transient ischemic attack) 10/18/2017 Assessment and Plan Aby Madrigal is an 59 y.o. female who came from home with past medical history of anxiety, DM2, hypertension, IBS presents a direct mission from [facility] with a chief complaint of chest pain. #Chest pain #Elevated troponin Troponin 0.1, will continue to trend -Patient continues to have mild chest discomfort upon arrival -Continue heparin drip -CXR negative for acute process at OSH -EKG showing normal sinus rhythm -N.p.o. for possible right and left cardiac cath in a.m. -Patient with new diastolic dysfunction on echoc (more content not included)... [facility]07-31-2024 NoteUT Cardiology - [facility] Subjective Aby Madrigal is a 59 y.o. year old female patient being seen for follow up [facility] ED per Dr. Moran. She [...] attack) QURESHI (dyspnea on exertion) Atherosclerosis of tribe coronary artery of tribe heart without angina pectoris Hyperlipidemia Murmur, heart [...] cooperative. Judgment: Judgment no (more content not included)...[facility]07-05-2024 NoteBellevue Office [facility]iology Clinic Note Reason for cardiology [...] extremities. PSYCH: appropriate mood, (more content not included)...[facility]01-04-2023 NoteOPERATIVE NOTE OPERATION DATE: 11/25/2022 PREOPERATIVE DIAGNOSIS: Colorectal [...] be in 10 years. CC: Kendra Moran M.D.[facility] [id number] NoteChief Complaint consultation for colonoscopy and skin lesions [...] in the past. Cousin with history of coloncancer, diagnosed age 50's. History of Present Illness 57 yo female with h/o htn, CAD, hyperlipidemia, SURESH, panic d/o, referred for colorectal screening; denies change in bms or blood in stools; no abdominal complaints; on regular asa daily, no NSAID use, no SBE prophylaxis; abdominal operations significant for tubal ligation, cholecystectomy, vaginal h ysterectomy; no previous colonoscopy; fmhx of colon cancer [...] swallowing difficulties, no hearing loss, no ear infection(s),no nose bleeds. Cardiovascular: normal blood pressure, no [...] mg= 1 tab(s), Oral, (more content not included)...Doctors HospitalComment on above:Result Comment: Electronically Signed By: DIPESH BUCKNER, Umm Hogan\Date and Time Signed: 10/11/22 11:01 ESTEvaluation + Plan note No data available for this section [facility] Evaluation note* Diagnosis Genitourinary syndrome of menopause- Primary PCB (post coital bleeding) Postcoital bleeding documented in this encounter [facility] SystemEvaluation noteNo assessment information available [facility] Work Phone: Evaluation note* Diagnosis Well woman exam with routine gynecological exam- Primary Routine gynecological examination [facility] No data available for this section [facility] Instructions* Attachments The following attachments cannot be sent through Care Everywhere. * Calcium and vitamin D for bone health (Surinamese) * Vaginal dryness (Surinamese) documented in this encounterUniversity Hospitals [facility] Center SystemProgress note No data available for this section [facility] Reason for referral (narrative)No reason for referral information availableKindred Hospital Dayton Work Phone: Summary Purpose Family History No Family History Records Found Relationship Condition Age at Onset Recorded Date/T luke sister Malignant neoplasm Unknown mother Malignant neoplasm Unknown Advance Directives No Advanced Directives Records Found Advance Directive Response Recorded Date/ Time Advance Directives No September 1:40pm Chief Complaint and Reason for Visit Chief Complaint Admit Date head cold, congestion March 03, 2025 1 0:35am Chief Complaint Admit Date head cold, congestion March 03, 2025 1 0:35am M25.562 - Pain in left knee May 21 6:26am CONSULT DR MORAN LT KNEE PAIN NX April 2:00pm Reason for Visit Admit Date Viral URI March 03, 2025 10: 35am Strain of left knee May 21, 2025 2:00 pm Additional Source Comments Patient Care team informatio n (unrecognized section and content) Advanced Manufacturing Technician Relationship Specialty Start Date End Date Kendra [...] March 03, 2025 End: March 03, 2025 Team Status: Active Member Role Status Dates Kendra Moran MD Primary Care Provider Active Start: May 21, 2025 Elie Jackson DO Attending Provider Active St art: May 21, 2025 Team Status: Inactive Member Role Status Dates Kendra Moran MD Primary Care Provider Active Start: May 21, 2025 End: May 21, 2025 Elie Jackson DO Attending Provider Active St art: May 21, 2025 End: May 21, 2025 Advanced Manufacturing Technician Relationship Specialty Start Date End Date Kendra Moran MD PCP - General Family Medicine 06/06/19 INFORMATION SOURCE (unrecogn ized section and content) DATE CREATED AUTHOR 12/16/2022 [facility] DATE CREATED AUTHOR AUTHOR'S ORGANIZ ATION 03/26/2023 [facility] DATE CREATED AUTHOR AUTHOR'S ORGANIZ ATION 02/11/2025 [facility] DATE CREATED AUTHOR AUTHOR'S ORGANIZ ATION 03/04/2025 [facility] DATE CREATED AUTHOR AUTHOR'S ORGANIZ ATION 05/15/2025 [facility] DATE CREATED AUTHOR AUTHOR'S ORGANIZ ATION 06/05/[address] [facility] Reason for Visit (unrecogniz ed section and content) Reason Comments ESTABLISHED PATIENT Patient presents tod ay for vaginal bleeding after intercourse. Reason Comments Gynecologic Exam Goals (unrecognized section and content) Goals may [...] BE BASED ON THE PRIMARY CLINICAL RECORDS. [employer] provides no warranty or guarantee of the accuracy or completeness of information in this document.
[2025-06-05 08:49] LABS: Hematocrit 38.8 % (36.0-48.0); Hemoglobin 12.2 g/dL (12.0-16.0); Immature Granulocytes Abs Auto 0.01 10^3/uL (0.00-0.03); Immature Granulocytes Pct Auto 0.2 % (0.0-0.5); Lymphocytes Absolute Auto 2.3 10^3/uL (1.2-3.8); Mean Corpuscular HGB Conc 31.4 g/dL (29.9-35.2); Mean Corpuscular Hemoglobin 26.8 pg (26.7-34.0); Mean Corpuscular Volume 85.3 fL (81.0-99.0); Platelet Count 223 10^3/uL (150-450); Red Blood Count 4.55 10^6/uL (4.20-5.40); White Blood Count 6.7 10^3/uL (4.0-11.0)
[2025-06-05 09:38] LABS: Alanine Aminotransferase 36 U/L (14-59); Albumin Globulin Ratio 1.1; Albumin Level 3.5 g/dL (3.4-5.0); Alkaline Phosphatase 57 U/L (46-116); Anion Gap 14.0; Aspartate Amino Transferase 19 U/L (15-37); Blood Urea Nitrogen 21.0 mg/dL (7.0-18.0); Calcium 9.2 mg/dL (8.5-10.1); Carbon Dioxide 28.0 mmol/L (21.0-32.0); Chloride 109 mmol/L (98-107); Cholesterol 115 mg/dL (<=200); Estimated GFR (African America 54 (>=60 mL/min/1.73m^2); Estimated GFR (Non-African Ame 45 (>=60 mL/min/1.73m^2); Free T3 1.95 pg/mL (2.18-3.98); Globulin 3.2 g/dL; Glucose 98 mg/dL (74-106); HDL Cholesterol 61 mg/dL (40-60); Potassium 4.0 mmol/L (3.5-5.1); Sodium 147 mmol/L (136-145); Thyroid Stimulating Hormone 2.200 uIU/mL (0.358-3.740); Total Protein 6.7 g/dL (6.4-8.2); Triglycerides 44 mg/dL (<=150); VLDL CHOLESTEROL 8.8 mg/dL
== END 2025-06-05 07:55 | disposition home or self-care (01) ==
LOC: LAB 07:56
PROVIDERS: PCP Family Medicine; Visit Provider Family Medicine
DX: R06.02 Shortness of breath (principal); I10 Essential (primary) hypertension; E11.9 Type 2 diabetes mellitus without complications; E87.6 Hypokalemia
CPT/HCPCS: 36415; 80053; 80061; 83036; 84436; 84443; 84481; 85025

== ENCOUNTER 2025-06-05 09:03 | Outpatient (OUT) | payer MEDICAID, SELFPAY ==
--- OUTSIDE RECORDS SUMMARY | 2025-06-01 13:00 | XMS_ITS | Encounter Summary ---
Author Organization [facility] Address [id number] [address] [place] [address] Care Team Providers Care Coordinate Measuring Machine Operator Name Role Phone Carlito Murillo MD Primary Care Provider [phone] Reason for Visit * Reason Comments Gynecologic Exam Encounter Details Date Type Department Care Team (Latest Contact Info) Description 06/01/2025 1:00 PM EDT Office Visit [facility] Ob[facility]etrics/Gynecolog y [address] [facility] [place] [phone] Afsaneh Jacome, CONTAINER MAKER-BORING MILL SET UP OPERATOR [address] [place], [place] [phone] Well woman exam with routine gynecological exam [...] Calcium and vitamin D for bone health (Kiswahili) * Vaginal dryness (Kiswahili) documented in this encounter Progress Notes * Afsaneh Jacome, DIONNE-BORING MILL SET UP OPERATOR - 06/01/2025 1:00 PM EDT Aby Madrigal is a pleasant 59 y.o. 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 Hysterectomy: yes - [...] yes Last mammogram: 2 years ago at [facility], Dr. Murillo orders them Dexa Scan: n/a Colonoscopy:1-2 years ago OB History 3 Para 2 Term AB 1 Living 2 SAB 1 IAB Ectopic Multiple Live Births 2 Past Medical History: Diagnosis Date Anxiety GERD (gastroesophageal reflux disease) Heart attack ([facility]) 06/29/2024 Past Surgical History: Procedure Laterality Date [...] provided. All questions answered. 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 ELVIN Singletary [...] documented as of this encounter Care Teams Coordinate Measuring Machine Operator Relationship Specialty Start Date End Date Carlito Murillo MD PCP - General Family Medicine 06/06/19 documented as of this encounter
--- NOTE | 2025-06-05 08:20 | NM_ITS ---
Patient Name: MILAN RASMUSSEN MR#: [id number] : 1965 Exam Date: 06/05/2025 Ordering Doctor: DR GOMEZ JAY M.D. RADIOLOGY REPORT PROCEDURE: NM GUNNAR PERF SPECT REST STR COMPARISON: None. INDICATIONS: CHEST PAIN, CORONARY ARTERY DISEASE TECHNIQUE: Exam Description: Stress/Rest one day protocol gated SPECT Rest Imagin.8 mCi Tc-99m Cardiolite IV on 06/05/2025 Stress Imaging 29.9 mCi Tc-99m Cardiolite IV on 06/05/2025 Exercise Protocol: 0.4 mg Lexiscan given IV Heart Rate (bpm): Rest: 51 Max: 115 PMHR: 71 Blood Pressure: Rest: 130/63 Max: 168/80 Symptoms: Rest and peak stress ECG findings were pending, and the exercise portion of the study was pending per attending physician [facility]. For more details, please see separate cardiac stress test report. FINDINGS: QUALITY OF STUDY: Good PERFUSION DEFECT: LOCATION: N/A SIZE: N/A SEVERITY: N/A TYPE: N/A WALL MOTION: Normal wall motion LV SIZE: 83 mL. TID / TCD: 1.0 LVEF: Calculated EF 72%. SUMMARY: Myocardial perfusion imaging study is normal CONCLUSION: 1. Myocardial perfusion is normal with soft tissue attenuation 2. Global left ventricular systolic function is normal 3. No evidence of significant transient ischemic dilatation Dictated by: Brunilda Cuellar M.D. on 06/05/2025 at 15:50 Approved by: Brunilda Cuellar M.D. on 06/05/2025 at 15:53
--- OUTSIDE RECORDS SUMMARY | 2025-06-05 09:06 | XMS_ITS | Encounter Summary ---
Author Organization [employer] Address [facility] [place] [id number] [address] [place] [address] Care Team Providers Care Gear Nicker Name Role Phone Carlito Murillo MD Primary Care Provider [phone] Reason for Referral * Diagnostic Imaging (Routine) - Closed Specialty Diagnoses / Procedures Referred By Contac t Referred To Contact Radiology Diagnoses Pain Procedures MRA head with and without contrast External, Scanning Provider Referral ID Status Reason Start Date Expiration Date Visits Re quested Visits Authorized [id number] Closed 11/10/2021 11/10/2022 1 1 * Diagnostic Imaging (Routine) - Closed Specialty Diagnoses / Procedures Referred By Contac t Referred To Contact Radiology Diagnoses Pain Procedures MR brain without contrast External, Scanning Provider Referral ID Status Reason Start Date Expiration Date Visits Re quested Visits Authorized [id number] Closed 11/10/2021 11/10/2022 1 1 Encounter Details Date Type Department Care Team ([facility] Contact Info) Description 11/10/2021 Orders Only [facility] [address] [place] [phone] Transcribe, Orders Support User Pain (Primary [...] as of this encounter Plan of Treatment Not on file documented as of this encounter Results * MRA head with and without contrast (11/06/2021 11:40 AM EST) us Scanning Provider External IMG MRI ORDERABLES Fi nal Result * MR brain without contrast (11/06/2021 11:35 AM EST) us Scanning Provider External IMG MRI ORDERABLES Fi nal Result documented in this encounter Visit Diagnoses Diagnosis Pain- Primary Generalized pain documented in this encounter Care Teams Gear Nicker Relationship Specialty Start Date End Date Carlito Murillo MD PCP - General Family Medicine 06/06/19 documented as of this encounter
--- OUTSIDE RECORDS SUMMARY | 2025-06-05 09:06 | XMS_ITS | Encounter Summary ---
Author Organization [employer] Address [facility] [id number] [address] [place] [address] Care Team Providers Care Electronics Scale Tester Name Role Phone Carlito Murillo MD Primary Care Provider [phone] Reason for Referral * Diagnostic Imaging (Routine) - Closed Specialty Diagnoses / Procedures Referred By Contac t Referred To Contact Radiology Diagnoses Pain Procedures CT angiogram chest [facility] [address] [place] [phone] Phone: tel: fax: Referral ID Status Reason Start Date Expiration Date Visits Re quested Visits Authorized [id number] Closed 07/20/2024 07/20/2025 1 1 * Diagnostic Imaging (Routine) - Pending Review Specialty Diagnoses / Procedures Referred By Contac t Referred To Contact Radiology Diagnoses Pain Procedures NON [facility] PET CT WHOLE BODY [facility] [place] [address] Phone: tel: fax: Referral ID Status Reason Start Date Expiration Date V isits Requested Visits Authorized [id number] Pending Review 07/20/2024 07/20/2025 1 1 Encounter Details Date Type Department Care Team (Late st Contact Info) Description 07/20/2024 Orders Only [facility] [address] [place] [phone] Transcribe, Orders Support User Pain (Primary [...] pain documented in this encounter Care Teams Electronics Scale Tester Relationship Specialty Start Date End Date Carlito Murillo MD PCP - General Family Medicine 06/06/19 documented as of this encounter
--- OUTSIDE RECORDS SUMMARY | 2025-06-05 09:06 | XMS_ITS | Encounter Summary ---
Author Organization [facility] Address [facility] [id number] [address] [place] [address] Care Team Providers Care X Ray Tech Name Role Phone Carlito Murillo MD Primary Care Provider [phone] Reason for Referral * Diagnostic Imaging (Routine) - Pending Review Specialty Diagnoses / Procedures Referred By Contac t Referred To Contact Radiology Diagnoses Primary aldosteronism Procedures IR venography venous sample Feng Cloud MD [address] [place] [address] Phone: tel: fax: Referral ID Status Reason Start Date Expiration Date V isits Requested Visits Authorized [id number] Pending Review 01/23/2025 01/23/2026 1 1 Encounter Details Date Type Department Care Team (Latest Contact Info) Description 01/23/2025 Orders Only [facility] - Interventional Radiology [address] [place] [phone] Feng Cloud MD [address] [place] [address] Primary aldosteronism (CMS-HCC) (Primary Dx) Social History [...] advanced into the IVC and a 5 Welsh vascular sheath was placed. Selective catheterization of [...] was achieved using a micropuncture set. A WillCall wire wasadvanced into the IVC and a 5 Welsh vascular sheath was placed. Selectivecatheterization of the right adrenal vein was performed using C catheterand samples obtained. There was another questionable [...] on 02/07/2025 10:05 PM Feng Cloud MD IMG IR ORDERABLES Final Result documented in this encounter Visit Diagnoses Diagnosis Primary aldosteronism- Primary Hyperaldosteronism, unspecified Primary aldosteronism- Primary Hyperaldosteronism, unspecified documented in this encounter Care Teams X Ray Tech Relationship Specialty Start Date End Date Carlito Murillo MD PCP - General Family Medicine 06/06/19 documented as of this encounter
--- OUTSIDE RECORDS SUMMARY | 2025-06-05 09:06 | XMS_ITS | Clinical Summary ---
Author Organization [employer] Address [facility] [id number] [address] [place] [address] Care Team Providers Care Dry Placer Machine Operator Name Role Phone Carlito Murillo MD Primary Care Provider [phone] Allergies Active Allergy Reactions Criticality Noted Date [...] as needed in the evening for anxiety. 4 Active estradioL (ESTRACE) 0.01 [...] 42.5 g 1 5 03/11/20 26 Active Additional Information Patient not taking.Reported on 06/01/2025 magnesium oxide (MAGOX) 400 mg tablet Take 1 tablet (400 mg total) by mouth in the morning. Active spironolactone (ALDACTONE) 25 mg tablet Take 1 tablet (25 mg total) by mouth in the morning. 5 Active INVOKANA 300 mg tablet Take 1 tablet (300 mg total) by mouth in the morning. 5 Active Active Problems Problem Noted Date Diagnosed Date HTN (hypertension) 10/18/2017 TIA (transient ischemic attack) 10/18/2017 GERD (gastroesophageal reflux disease) 7 BV (bacterial vaginosis) 10/18/2017 Encounters Date Type Department Care Team Description 06/01/2025 1:00 PM EDT Office Visit [facility] [address] [place] [address] Afsaneh Jacome, CREDIT COLLECTION SPECIALIST-ENVIRONMENTAL COMMUNICATIONS SPECIALIST Well woman exam with routine gynecological exam (Primary Dx) 06/01/2025 Travel from Last 3 Months Family History [...] Pressure 130/78 06/01/2025 12:58 PM EDT Pulse 65 02/07/2025 11:00 AM EDT Temperature - - Respiratory Rate 20 02/07/2025 11:0 0 AM EDT Oxygen Saturation 96% 02/07/2025 11: 00 AM EDT Inhaled Oxygen Concentration - - Weight 87.9 kg (193 lb 12.8 oz) 025 12:58 PM EDT Height 162.6 cm (5' 4 ) 06/01/2025 12:5 8 PM EDT Body Mass Index 33.27 06/01/2025 12:58 PM EDT Plan of Treatment Health Maintenance Due Date Last Done Comments Depression Screening 1976 DTaP,Tdap and Td Vaccines (1 - Tdap) 1983 Zoster (Shingles) Vaccine (1 of 2) 2014 COVID-19 Vaccine (3 - 2023-2 5 season) 2024 04/14/2021, 03/11/2021 Influenza Vaccine 07/23/2025 11/07/2021, , 10/30/2019, Additional history exists Adult BMI Follow Up Plan 06/01/2026 06/01/2025 Adult BMI Screening 06/01/2026 06/01/2025 Tobacco Screening 06/01/2026 06/01/2025 Medical Devices Not on file Insurance [address] [place] [address] [employer] Member Subscriber Plan / Payer (Ef fective 2022-Present) Name:Aby Madrigal Relation to Subscriber:Self Name:Aby Madrigal Payer ID:Not on file Group ID:[id number] Type:Not on file Address: [facility] [id number] [place] [id number] Care Teams Dry Placer Machine Operator Relationship Specialty Start Date End Date Carlito Murillo MD PCP - General Family Medicine 06/06/19
--- NOTE | 2025-06-05 10:42 | PC.NURSE ---
Nursing Note Cardiac Stress Test Reviewed: Medication, allergies and patient history reviewed. Stress Test: [x ] Patient tolerated stress test well. [x ] Patient unable to tolerate walking on treadmill. Switched to Lexiscan stress test. [ ] No chest pain noted per patient [x ] Chest pain that resolved prior to leaving stress lab. [ ] No dyspnea noted. [x ] Dyspnea that resolved prior to leaving stress lab. [x ] Patient left stress lab asymptomatic and hemodynamically stable. [ ] Patient taken to the Emergency Room due to non-resolving symptoms following stress test. [ ] Patient achieved target heart rate. [x ] Patient unable to achieve target heart rate. [x ] Aminophylline administered as reversal agent to Lexiscan (Regadenoson). [ ] Nitro administered. Nursing Comments:Pt attempted TM but was unable to reach target prior to getting SOB. Pt was switched to Lexiscan. Pt had chest pain with the Chika along with a general heaviness and some SOB. AMinophylline was given and pt had no symptoms after roughly 3 minutes of the Aminophylline. Pt left stress lab and ambulated to cafeteria for breakfast prior to second set of images.
[2025-06-05] MEDS: AMINOPHYLLINE 250 MG/10 ML VIAL 50 MG IVP (10:58)
[2025-06-05] MEDS: REGADENOSON 0.4 MG/5 ML SYRINGE IV (10:58)
--- NOTE | 2025-06-05 11:57 | P.STRESS_ITS ---
Stress Test Stress Test Allergies Allergy/AdvReac Type Severity Reaction Status Date / Time lisinopril Allergy Severe Cough Verified 05/17/25 22:16 amlodipine Allergy Mild Headache Verified 05/17/25 22:16 alprazolam (From Xanax) AdvReac Severe Watery Eye Verified 05/17/25 22:16 Requesting physician: GOMEZ JAY Procedure: Lexiscan pharmacological stress test General Information: Reason for Stress Test: [Chest pain] Cardiac History and Risk Factors: [History of coronary artery disease, prior stents, hypertension, prior myocardial infarction] Resting 12 - Lead Electrocardiogram: Marked sinus bradycardia Abnormal EKG Stress Test: Protocol: [Lexiscan] Exercise Capacity: [N/A] Blood Pressure Response: [N/A] Rhythm: [Sinus, sinus bradycardia, infrequent supraventricular and ventricular ectopy] ST - Response: [Marked, horizontal, ST depression seen in leads II, 3, aVF, V4- V6 in recovery and persisting up to 8 minutes] Patient Response: [The patient experienced chest pain that started after Lexiscan; she became pale and stated she did not feel well . Aminophylline was given for reversal. Within 3 minutes patient had no symptoms.] Interpretation: 1. Abnormal Lexiscan stress test with significant ischemic EKG changes seen in the inferolateral leads 2. Infrequent ventricular and supraventricular ectopy 3. Nuclear images are to be read, interpreted, and reported separately
== END 2025-06-05 09:04 | disposition home or self-care (01) ==
LOC: NM 09:03
PROVIDERS: PCP Family Medicine; Visit Provider Internal Medicine Interventional Cardiology
DX: I25.118 Atherosclerotic heart disease of native coronary artery with other forms of angina pectoris (principal); I10 Essential (primary) hypertension; E11.9 Type 2 diabetes mellitus without complications; E87.6 Hypokalemia; R06.02 Shortness of breath
CPT/HCPCS: 36415; 78452; 80053; 80061; 83036; 84436; 84443; 84481; 85025; 93017; A9500; J0280; J2785

== ENCOUNTER 2025-06-06 19:54 | Emergency (ER) | payer MEDICAID, SELFPAY ==
--- OUTSIDE RECORDS SUMMARY | 2025-05-29 10:26 | XMS_ITS ---
Author Organization [facility] in [place] Address [address] [place] [address] Care Team Providers Care Drop Board Man Name Role Phone Amadou Murillo Primary Care Provider Medications Medication SIG (Take, Route, Fr equency, Duration) Notes Start Date End Date Status Magnesium Oxide 400 MG 1 tablet with mingo d Orally Once a day for 90 days 03/30/2025 Active Encounters Encounter Location Date Provider Diagnosis [address] [address] 05/29/2025 Amadou Murillo Hypomagnesemia E83.4 2 Assessments Encounter Date Diagnosis (ICD Code) Assessment Notes Treatment Notes Treatment Clinical Notes Section Notes 05/29/2025 Hypomagnesemia (ICD-10 - E83.42) Plan Of Treatment Medication Medication Name Sig Start Date Stop Date Notes Magnesium Oxide 400 MG 1 tablet with mingo d Orally Once a day for 90 days 03/30/2025 Progress Notes * Aby RASMUSSEN SDOB:[birth year] (59 yo F)Acc No.[id number]:05/29/2025 Patient: Aby WILDER :1965 A ge:59 Y S ex:Female Address:[address] [place] [address], [address], [place] [address] * Refills Refill Magnesium Oxide Tablet, 400 MG, Orally, 90, 1 tablet with food, Once a day, 90 days, Refills=0 * true * Date: Generated for Maryjo stevens/Live/Eliezer on: 0 06/06/2025 07:59 PM EDT
--- OUTSIDE RECORDS SUMMARY | 2025-05-30 10:52 | XMS_ITS ---
Author Organization [facility] in [place] Address [address] [place] [address] Care Team Providers Care Grinder And Plater Name Role Phone Amadou Murillo Primary Care Provider [phone] REASON FOR VISIT rf ativan Medications Medication SIG (Take, Route, Fr equency, Duration) Notes Start Date End Date Status LORazepam 1 MG 1 tablet Orally tid for 30 days 07/2025 Active Encounters Encounter Location Date Provider Diagnosis [facility] [address] [place] [address] 05/30/2025 Amadou Murillo Insomnia G47.00 Assessments Encounter Date Diagnosis (ICD Code) Assessment Notes Treatment Notes Treatment Clinical Notes Section Notes 05/30/2025 Insomnia (ICD-10 - G47.00) Plan Of Treatment Medication Medication Name Sig Start Date Stop Date Notes LORazepam 1 MG 1 tablet Orally tid for 30 days 05/30/2025 Progress Notes * Aby MADRIGAL SDOB:[birth year] (59 yo F)Acc No.[id number]:05/30/2026 Patient: Aby WILDER :1965 A ge:59 Y S ex:Female Address:[address] [place] [address], [address], [place] [address] * Refills Refill LORazepam Tablet, 1 MG, Orally, 90 Tablet, 1 tablet, tid, 30 days, Refills=0 * true * Date: Generated for Printi ng/Faziong/eTransmitting on: 0 06/06/2025 07:58 PM EDT
--- OUTSIDE RECORDS SUMMARY | 2025-06-01 13:00 | XMS_ITS | Encounter Summary ---
[id number] [address] [place] [address] Care Team Providers Care Instrument And Control Service Person Name Role Phone Carlito Murillo MD Primary Care Provider [phone] Reason for Visit * Reason Comments Gynecologic Exam Encounter Details Date Type Department Care Team (Latest Contact Info) Description 06/01/2025 1:00 PM EDT Office Visit [facility] Obstetrics/Gynecolog y [address] [facility] [place] [phone] Afsaneh Jacome, QUALITY CHECKER-NURSING SCHEDULER [address] [place], [place] [id number] Well woman exam with routine gynecological exam (Primary Dx) Social History Tobacco Use Types [...] got money to buy more. Never True 06/01/2025 Within the past 12 months th e food we bought just didn't last and we didn't have money to get more. Never True 06/01/2025 Purpose - Life Answer Date Recorded Purpose and direction in life Unknown Comments No Sex and Gender Information Value Date Recorded Sex Assigned at Not on file Legal Sex Female 11:40 AM EDT Gender Identity Not on file Sexual Orientation Not on file documented as of this encounter Last Filed Vital Signs Vital Sign Reading Time Taken Comments Blood Pressure 130/78 06/01/2025 12:58 PM EDT Pulse - - Temperature - - Respiratory Rate - - Oxygen Saturation - - Inhaled Oxygen Concentration - - Weight 87.9 kg (193 lb 12.8 oz) 025 12:58 PM EDT Height 162.6 cm (5' 4 ) 06/01/2025 12:5 8 PM EDT Body Mass Index 33.27 06/01/2025 12:58 PM EDT documented in this encounter Patient Instructions * Attachments The following attachments cannot be sent through Care Everywhere. * Calcium and vitamin D for bone health (Korean) * Vaginal dryness (Korean) documented in this encounter Progress Notes * Afsaneh Jacome, DIONNE-NURSING SCHEDULER - 06/01/2025 1:00 PM EDT Aby Madrigal is a pleasant 59 y.o. 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 Hysterectomy: yes - for pain at age 34. She is sexually active. Denies painful intercourse or pelvic pain. Employment: no Vaginal Bleeding none Hot flashes / menopausal symptoms - None Bladder issues - None Bowel issues - yes - Mixed IBS symptoms History of abnormal Pap smear: no Family history of uterine or ovarian cancer: no Family hx pancreatic or prostate cancer: no Family history of colon cancer: no Family history of breast cancer: yes - patient's mother in 40s Regular self breast exam: yes Last mammogram: 2 years ago at [facility], Dr. Murillo orders them Dexa Scan: n/a Colonoscopy:1-2 years ago OB History 3 Para 2 Term AB 1 Living 2 SAB 1 IAB Ectopic Multiple Live Births 2 Past Medical History: Diagnosis Date Anxiety GERD (gastroesophageal reflux disease) Heart attack ([facility]) 06/29/2024 Past Surgical History: Procedure Laterality Date CHOLECYSTECTOMY CYSTOSCOPY W/ URETERAL STENT PLACEMENT DILATION AND CURETTAGE OF UTERUS HYSTERECTOMY 2000 TUBAL LIGATION Family History Problem Relation Age of Onset Cancer Mother lung Breast cancer Mother 38 Cancer Sister lung Breast cancer Maternal Aunt Ovarian cancer Neg Hx Uterine cancer Neg Hx Pancreatic cancer Neg Hx Colon cancer Neg Hx Current Outpatient Medications Medication Sig Dispense Refill [...] mg total) by mouth in the morning. INVOKANA 300 mg tablet Take 1 tablet (300 mg total) by mouth in the morning. isosorbide mononitrate (IMDUR) 60 mg 24 hr tablet Take 1 tablet (60 mg total) by mouth in the morning and at bedtime. LORazepam (ATIVAN) 1 mg tablet Take 1 tablet (1 mg total) by mouth as needed in the morning and 1 tablet (1 mg total) as needed at noon and 1 tablet (1 mg total) as needed in the evening for anxiety. magnesium oxide (MAGOX) 400 mg tablet Take 1 tablet (400 mg total) by mouth in the morning. pantoprazole (PROTONIX) 40 mg EC tablet Take 1 tablet (40 mg total) by mouth every morning before breakfast. QUEtiapine (SEROquel) 100 mg tablet Take 1 tablet (100 mg total) by mouth nightly. rosuvastatin (CRESTOR) 40 mg tablet Take 1 tablet (40 mg total) by mouth in the morning. spironolactone (ALDACTONE) 25 mg tablet Take 1 tablet (25 mg total) by mouth in the morning. amitriptyline (ELAVIL) 100 mg tablet Take 100 mg by mouth nightly. (Patient not taking: Reported on06/01/2025) citalopram (CeleXA) 20 mg tablet Take 20 mg by mouth daily. (Patient not taking: Reported on 06/01/2025) estradioL (ESTRACE) 0.01 % (0.1 mg/gram) vaginal cream Insert 0.5 g into the vagina nightly for 14 days, THEN 0.5 g 2 (two) times a week for 360 days. 0.5 grams vaginally each night for two weeks andthen twice weekly (ex. Wednesday and ). In additional to vaginal use, apply pea size amount tofingertip and rub in vulva and vaginal introitus.. (Patient not taking: Reported on 06/01/2025) 42.5g 1 hydrOXYzine (ATARAX) 25 mg tablet Take 1 tablet (25 mg total) by mouth 3 (three) times a day as needed. (Patient not taking: Reported on 06/01/2025) irbesartan (AVAPRO) 300 mg tablet Take 300 mg by mouth nightly. (Patient not taking: Reported on 06/01/2025) LORazepam (ATIVAN) 0.5 mg tablet Take 0.5 mg by mouth as needed. (Patient not taking: Reported on 06/01/2025) metFORMIN (GLUCOPHAGE) 500 mg tablet Take 1 tablet (500 mg total) by mouth in the morning and 1 tablet (500 mg total) in the evening. Take with meals. (Patient not taking: Reported on 06/01/2025) No current facility-administered medications for this visit. ALLERGIES Allergies Allergen Reactions Alprazolam Abnormal Behavior sadness Amlodipine Other (See Comments) Eye twitch Lisinopril Cough Review of Systems Constitutional: Negative. Respiratory: Negative. Negative for chest tightness and shortness of breath. Cardiovascular: Negative. Negative for chest pain and palpitations. Gastrointestinal: Positive for constipation and diarrhea. Negative for nausea and vomiting. Endocrine: Negative. Genitourinary: Negative. Negative for dyspareunia, pelvic pain and vaginal bleeding. Musculoskeletal: Negative. Skin: Negative. Allergic/Immunologic: Negative. Neurological: Negative. Hematological: Negative. Psychiatric/Behavioral: Negative. Physical Exam BP 130/78 Ht 162.6 cm (5' 4 ) Wt 87.9 kg (193 lb 12.8 oz) BMI 33.27 kg/m?? Physical Exam Vitals and nursing note reviewed. Constitutional: Appearance: Normal appearance. HENT: Head: Normocephalic and atraumatic. Cardiovascular: Rate and Rhythm: Normal rate and regular rhythm. Pulses: Normal pulses. Heart sounds: Normal heart sounds. Pulmonary: Effort: Pulmonary effort is normal. Breath sounds: Normal breath sounds. Chest: Breasts: Breasts are symmetrical. Right: Normal. No mass, skin change or tenderness. Left: Normal. No mass, skin change or tenderness. Abdominal: General: Bowel sounds are normal. Palpations: Abdomen is soft. Genitourinary: General: Normal vulva. Labia: Right: No rash or lesion. Left: No rash or lesion. Vagina: Normal. Adnexa: Right adnexa normal and left adnexa normal. Right: No mass, tenderness or fullness. Left: No mass, tenderness or fullness. Comments: Uterus and cervix surgically absent. Vaginal cuff in good repair. Musculoskeletal: General: Normal range of motion. Cervical back: Normal range of motion and neck supple. Skin: General: Skin is warm and dry. Neurological: Mental Status: She is alert and oriented to person, place, and time. Psychiatric: Mood and Affect: Mood normal. Speech: Speech normal. Behavior: Behavior normal. Thought Content: Thought content normal. Judgment: Judgment normal. Assessment / Plan Aby was seen today for gynecologic exam. Diagnoses and all orders for this visit: Well woman exam with routine gynecological exam BMI is above average; Discussed eating tips for weight loss and and exercise steps. Recommend breast self-awareness. Notify provider for any breast changes or concerns Discussed taking a multivitamin. Discussed Calcium and Vitamin D for prevention of osteoporosis. Discussed need for yearly mammogram after 40 yo. Patient to discuss colon cancer screening recommendations with PCP. Educational material provided. All questions answered. 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 ELVIN Singletary 06/01/25 1329 documented in this encounter Plan of Treatment Not on file documented as of this encounter Visit Diagnoses Diagnosis Well woman exam with routine gynecological exam- Primary Routine gynecological examination documented in this encounter Additional Health Concerns Assessment Noted Time A Body Mass Index follow-up plan has been documented for the patient 06/01/2025 1:29 PM EDT documented as of this encounter Care Teams Instrument And Control Service Person Relationship Specialty Start Date End Date Carlito Murillo MD PCP - General Family Medicine 06/06/19 documented as of this encounter
--- OUTSIDE RECORDS SUMMARY | 2025-06-05 17:04 | XMS_ITS ---
Author Organization [facility] [place] Address [address] [place] [address] Care Team Providers Care Stars Coordinator Name Role Phone Amadou Murillo Primary Care Provider REASON FOR VISIT labs Encounters Encounter Location Date Provider Diagnosis [facility] [address] [place] [address] 06/05/2025 Amadou Murillo Abnormal thyroid blo od test R79.89 Assessments Encounter Date Diagnosis (ICD Code) Assessment Notes Treatment Notes Treatment Clinical Notes Section Notes 06/05/2025 Abnormal thyroid blood test (ICD-10 - R79.89) Plan Of Treatment Medication Medication Name Sig Start Date Stop Date Notes Meloxicam 15 MG 1 tablet Orally Once a day 04/25/2025 Pending Test Test Name Order Date THYROID PANEL (T4/TSH/FREE T3) Progress Notes * Aby RASMUSSEN SDOB:[birth year] (59 yo F)Acc No.[id number]:06/05/2025 Patient: Aby WILDER :1965 A ge:59 Y S ex:Female Address:[address] [place] [address], [address], [place] [address] * Refills Stop Meloxicam Tablet, 15 MG, Orally, 1 tablet, Once a day Subjective: * Chief Complaints: * L abs * Medical History: * Surgical History: * Hospitalization/Major Diagno stic Procedure: * Medications: Objective: * Vitals: * Physical Examination: Assessment: * Assessment: 1. A bnormal thyroid blood test - R79.89 (Primary) Plan: * Treatment: 2. O thers Stop Meloxicam Tablet, 15 MG, 1 tablet, Orally, Once a day. * Procedure Codes: * true * Date: Generated for Maryjo stevens/Live/Eliezer on: 0 06/06/2025 07:58 PM EDT
[2025-06-06 19:57] VITALS: BP 183/78; PULSE 74; TEMP 36.9; O2SAT 98; BMI 34.5
--- OUTSIDE RECORDS SUMMARY | 2025-06-06 19:59 | XMS_ITS | Clinical Summary ---
Author Organization [facility] Address [address] [place] [address] Care Team Providers Care Wig Stylist Name Role Phone Carlito Murillo MD Primary Care Provider [phone] Allergies Active Allergy Reactions Criticality Noted Date [...] mg by mouth if needed for anxiety. 7 Active Protonix 40 mg EC tablet Take 40 mg by mouth if needed each day. 3 Active QUEtiapine (SEROquel) 25 mg tablet Take 100 mg by mouth at bedtime. Active clopidogrel (Plavix) 75 mg tabletIndication s:Chest pain,NSTEMI (non-ST elevated myocardial infarction) (CMS/HCC) Take 1 tablet (75 mg) by mouth in the morning. 90 tablet 3 4 07/01/20 25 Active rosuvastatin (Crestor) 40 mg tabletIndication s:Chest pain,NSTEMI (non-ST elevated myocardial infarction) (CMS/HCC) Take 1 tablet (40 mg) by mouth in the morning. 30 tablet 4 10/03/20 25 Active isosorbide mononitrate ER (Imdur) 60 mg 24 hr tabletIndication s:Resistant hypertension Take 1 tablet (60 mg) by mouth in the morning for 98 doses. Do not crush or chew. 30 tablet 3 4 Active Additional Information Patient taking differently:60 mg oralNightly, Do not crush or chew., Reported on 05/14/2025 Invokana 100 mg Take 100 mg by mouth in the morning. 4 Active hydrALAZINE (Apresoline) 50 mg tablet Take 50 mg by mouth if needed. 4 Active QUEtiapine (SEROquel) 100 mg tablet Take 100 mg by mouth in the morning. 4 Active LORazepam (Ativan) 1 mg tablet TAKE 1 TABLET BY MOUTH THREE TIMES A DAY FOR 30 DAYS 4 Active albuterol (Ventolin HFA) 90 mcg/actuation inhalerIndicatio ns:Wheezing Inhale 2 puffs every 4 (four) hours if needed for wheezing or shortness of breath. 18 g 5 4 10/26/20 25 Active sodium chloride 1,000 mg tabletIndication s:Primary aldosteronism,Hy pertension due to endocrine disorder Take 1 tablet 3 times a day for 3 days, collect urine from day 3- 4 12 tablet 5 Active Additional Information Patient not taking.Reason: Other, Reported on 05/14/2025 carvedilol (Coreg) 25 mg tabletIndication s:Coronary artery disease involving inupiat coronary artery of inupiat heart without angina pectoris,Primary hypertension Take 1.5 tablets by mouth twice daily. 5 Active spironolactone (Aldactone) 50 mg tabletIndication s:Primary hypertension Take 0.5 tablets (25 mg) by mouth in the morning. 5 Active magnesium oxide (Mag-Ox) 400 mg (241.3 mg magnesium) tablet Take 400 mg by mouth in the morning. 5 Active Active Problems Problem Noted Date Diagnosed Date Hypertension due to endocrine disorder 5 Adenoma of left adrenal gland 01/09/2025 Resistant hypertension 10/05/2024 Primary aldosteronism 10/03/2024 Depression, major, severe recurrence 09/04/2024 Panic disorder 09/04/2024 Hypokalemia 07/11/2024 Coronary artery disease invo lving inupiat coronary artery of inupiat heart without angina pectoris 07/11/2024 Anxiety 06/30/2024 [...] Date Hypertensive urgency 06/30/2024 024 Atherosclerosis of inupiat co ronary artery of inupiat heart without angina pectoris 05/26/2024 Encounters Date Type Department Care Team Description 06/05/2025 Orders Only [address] [phone] Mary Gonzalez MD 05/14/2025 11:30 AM EDT Office Visit [address] [place] [address] Rafa Spence MD Coronary artery disease involving inupiat coronary artery of inupiat heart with other form of angina pectoris (Primary Dx); Primary hypertension; Status post insertion of drug eluting coronary artery stent; Renal artery stenosis 04/23/2025 2:15 PM EDT Office Visit [address] [address] Rafa Spence MD Coronary artery disease involving inupiat coronary artery of inupiat heart without angina pectoris (Primary Dx); Primary hypertension; Status post insertion of drug eluting coronary artery stent; Renal artery stenosis 04/20/2025 Orders Only [address] [address] Mary Gonzalez MD 04/10/2025 1:00 PM EDT Follow-Up [facility] Comprehensive Medical Practice at [address] [address] Feng Cloud MD Hypertension due to endocrine disorder (Primary Dx); Adenoma of left adrenal gland; Primary aldosteronism; Chest pain; NSTEMI (non-ST elevated myocardial infarction) (CMS/HCC) from Last 3 Months Family History Medical History Relation Name Comments Accidental Father Lung cancer Mother Lung cancer Sister Relation Name Status Comments Brother Alive Father Mother Sister Social History Tobacco Use Types Packs/Day Years Used Date Smoking Tobacco: Former Cigarettes 1 45 1 2021 Smokeless Tobacco: Never Tobacco Cessation:Counseling Given: Not Answered Alcohol Use Standard Drinks/Week Comments Not Currently 0 (1 standard drink = 0.6 oz pure alcohol) Used to drink a lot on the weekend [facility] Utilities Answer Date Recorded In the past 12 months has [facility] [employer], gas, oil, or water [email or web address] threatened to shut off services in your [...] often do you attend chur ch or yazidism services? Never 07/11/2024 Do you belong to [...] Recorded Patient Health Questionnaire-2 Score 0 10/26/2024 [facility] Occup[facility] ional Health - Occupational Stress [...] Info) Description 07/24/2025 1:00 PM EDT Follow-Up [facility] Comprehensive Medical Practice at [facility] [address] [place] [address] Feng Cloud MD [address] [facility] [address] [place] [address] Health Maintenance Due Date Last [...] 5 season) 2024 04/14/2021, 03/11/2021 Influenza Vaccine (#1) 2025 1, 10/25/2020, 09/20/2017 Depression Screening 10/26/2025 10/26/2024 HIB [...] this topic Medical Devices Implanted Type Area Workforce Advisor Device Identifier Shelf Expiration Date Model / Serial / Lot Stent,Holly Mr 2.75 X 20 - [id number] - [id number] Implanted:Qty: 1 on 06/30/2024 by Brunilda Cuellar MD at [facility] Eluting Stent [facility] [id number] 04/13/2025 [id number] / [id number] / [id number] Procedures Procedure Name Priority Date/Time Associated Diagnosis Comments LEXISCAN STRESS MYOCARDIAL PERFUSION IMAGING Routine 06/05/2025 3:58 PM EDT BASIC METABOLIC PANEL Routine 04/09/2025 2:39 PM [...] EDT from Last 3 Months Results * Lexiscan Stress Myocardial Perfusion Imaging (06/05/2025 3:58 PM EDT) Anatomical Region Laterality Modality Other us Historical Provider CV STRESS PROCEDURES Kate l Result * Basic metabolic panel (04/09/2025 2:39 PM EDT) Blood Venous blood specimen / Unknown Result [facility] Provider MD LAB BLOOD ORDERABLES Kate l Result * CBC (04/01/2025 2:39 PM EDT) Only the most recent of2 resultswithin the time period is included. Blood Venous blood specimen / Unknown Result [facility] Provider MD LAB BLOOD ORDERABLES Kate l Result * Comprehensive metabolic panel (04/01/2025 2:39 PM EDT) Only the most recent of3 resultswithin the time period is included. Blood Venous blood specimen / Unknown Result [facility] Provider MD LAB BLOOD ORDERABLES Kate l Result * Magnesium (03/30/2025 2:38 PM EDT) Blood Venous blood specimen / Unknown Result [facility] Provider MD LAB BLOOD ORDERABLES Kate l Result * C-reactive protein (03/25/2025 2:37 PM EDT) Blood Venous blood specimen / Unknown Result [facility] MD LAB BLOOD ORDERABLES Kate l Result * ECG 12 lead (03/25/2025 2:36 PM EDT) Result [facility] Provider ECG ORDERABLES Final Res ult from Last 3 Months Insurance [address] [place] [address] FORMERLY [facility] MEDICAID Advance Directives * Full Code (Latest Code Status on File) Date Activated Date Inactivated Comments 07/11/2024 12:18 PM 07/12/2024 1:06 PM * Full Code Date Activated Date Inactivated Comments 06/30/2024 1:12 AM 07/01/2024 2:41 PM Care Teams Wig Stylist Relationship Specialty Start Date End Date Carlito Murillo MD [address] [place] [address] PCP - General 05/24/24
--- OUTSIDE RECORDS SUMMARY | 2025-06-06 19:59 | XMS_ITS | Encounter Summary ---
Author Organization [facility] tem Address [id number] [address] [place] [address] Care Team Providers Care Inspector Welded Parts Name Role Phone Carlito Murillo MD Primary Care Provider [phone] Reason for Referral * Diagnostic Imaging (Routine) - Pending Review Specialty Diagnoses / Procedures Referred By Contac t Referred To Contact Radiology Diagnoses Primary aldosteronism Procedures IR venography venous sample Feng Cloud MD [address] [place] [address] Phone: tel: fax: Referral ID Status Reason Start Date Expiration Date V isits Requested Visits Authorized [id number] Pending Review 01/23/2025 01/23/2026 1 1 Encounter Details Date Type Department Care Team (Latest Contact Info) Description 01/23/2025 Orders Only [facility] - Interventional Radiology [address] [place] [phone] Feng Cloud MD [address] [place] [address] Primary aldosteronism (CMS-HCC) (Primary Dx) Social History [...] advanced into the IVC and a 5 Nepali vascular sheath was placed. Selective catheterization of [...] was achieved using a micropuncture set. A [employer] 3D wire wasadvanced into the IVC and a 5 Nepali vascular sheath was placed. Selectivecatheterization of the [...] unspecified documented in this encounter Care Teams Inspector Welded Parts Relationship Specialty Start Date End Date Carlito Murillo MD PCP - General Family Medicine 06/06/19 documented as of this encounter
--- OUTSIDE RECORDS SUMMARY | 2025-06-06 19:59 | XMS_ITS | Clinical Summary ---
Author Organization [employer] tem Address [id number] [address] [place] [address] Care Team Providers Care Tafe Lecturer Name Role Phone Carlito Murillo MD Primary Care Provider [phone] Allergies Active Allergy Reactions Criticality Noted Date [...] [facility] [address] [place] [address] Afsaneh Jacome, AUDIT INTERN-FINAL RAIL CUTTER Well woman exam with routine gynecological exam [...] Medical Devices Not on file Insurance [address] [place] [address] [employer] Member Subscriber Plan / Payer (Ef fective 2022-Present) Name:Aby Madrigal Relation to Subscriber:Self Name:Aby Madrigal Payer ID:Not on file Group ID:[id number] Type:Not on file Address: [facility] [id number] [place] [id number] Care Teams Tafe Lecturer Relationship Specialty Start Date End Date Carlito Murillo MD PCP - General Family Medicine 06/06/19
--- OUTSIDE RECORDS SUMMARY | 2025-06-06 19:59 | XMS_ITS | Encounter Summary ---
Author Organization [employer] Address [id number] [address] [place] [address] Care Team Providers Care Program Medical Director Name Role Phone Carlito Murillo MD Primary Care Provider [phone] Reason for Referral * Diagnostic Imaging (Routine) - Closed Specialty Diagnoses / Procedures Referred By Contac t Referred To Contact Radiology Diagnoses Pain Procedures MRA head with and without contrast External, Scanning Provider Referral ID Status Reason Start Date Expiration Date Visits Re quested Visits Authorized [id number] Closed 11/10/2021 11/10/2022 1 1 * Diagnostic Imaging (Routine) - Closed Specialty Diagnoses / Procedures Referred By Contac t Referred To Contact Radiology Diagnoses Pain Procedures MR brain without contrast External, Scanning Provider Referral ID Status Reason Start Date Expiration Date Visits Re quested Visits Authorized [id number] Closed 11/10/2021 11/10/2022 1 1 Encounter Details Date Type Department Care Team ([facility] Contact Info) Description 11/10/2021 Orders Only [facility] [address] [place] [phone] Transcribe, Orders Support User Pain (Primary [...] pain documented in this encounter Care Teams Program Medical Director Relationship Specialty Start Date End Date Carlito Murillo MD PCP - General Family Medicine 06/06/19 documented as of this encounter
--- OUTSIDE RECORDS SUMMARY | 2025-06-06 19:59 | XMS_ITS | Encounter Summary ---
Author Organization [employer] Address [id number] [address] [place] [address] Care Team Providers Care Detacker Name Role Phone Carlito Murillo MD Primary Care Provider [phone] Reason for Referral * Diagnostic Imaging (Routine) - Closed Specialty Diagnoses / Procedures Referred By Contac t Referred To Contact Radiology Diagnoses Pain Procedures CT angiogram chest [facility] [address] [place] [phone] Phone: tel: fax: Referral ID Status Reason Start Date Expiration Date Visits Re quested Visits Authorized [id number] Closed 07/20/2024 07/20/2025 1 1 * Diagnostic Imaging (Routine) - Pending Review Specialty Diagnoses / Procedures Referred By Contac t Referred To Contact Radiology Diagnoses Pain Procedures NON [facility] PET CT WHOLE BODY [facility] [place] [address] Phone: tel: fax: Referral ID Status Reason Start Date Expiration Date V isits Requested Visits Authorized [id number] Pending Review 07/20/2024 07/20/2025 1 1 Encounter Details Date Type Department Care Team (Late st Contact Info) Description 07/20/2024 Orders Only [facility] [address] [place] [phone] Transcribe, Orders Support User Pain (Primary [...] pain documented in this encounter Care Teams Detacker Relationship Specialty Start Date End Date Carlito Murillo MD PCP - General Family Medicine 06/06/19 documented as of this encounter
--- OUTSIDE RECORDS SUMMARY | 2025-06-06 19:59 | XMS_ITS | Encounter Summary ---
Author Organization [facility] Address [address] [place] [address] Care Team Providers Care Early Childhood Name Role Phone Carlito Murillo MD Primary Care Provider [phone] Encounter Details Date Type Department Care Team (Late st Contact Info) Description 06/05/2025 Orders Only [facility] Heart at [facility] [address] [place] [address] ProviderMary MD [address] [place] [address] Social History Tobacco Use Types Packs/Day Years Used Date Smoking Tobacco: Former Cigarettes 1 45 1 977 - 2021 Smokeless Tobacco: Never Alcohol Use Standard Drinks/Week Comments Not Currently 0 (1 standard drink = 0.6 oz pure alcohol) Used to drink a lot on the weekend [facility] Utilities Answer Date Recorded In the past 12 months has [facility] [employer], gas, oil, or water [employer] threatened to shut off services in your [...] often do you attend chur ch or cheondoism services? Never 07/11/2024 Do you belong to any clubs o r organizations such as jain groups, unions, fraternal or athletic groups, or [...] Recorded Patient Health Questionnaire-2 Score 0 10/26/2024 [facility] Occupat ional Health - Occupational Stress [...] Info) Description 07/24/2025 1:00 PM EDT Follow-Up [facility] Comprehensive Medical Practice at [facility] [address] [place] [phone] Feng Cloud MD [address] [facility] [address] [place] [phone] documented as of this encounter Procedures Procedure Name Priority Date/Time Associated Diagnosis Comments LEXISCAN STRESS MYOCARDIAL PERFUSION IMAGING Routine 06/05/2025 3:58 PM EDT documented in this encounter Results * Lexiscan Stress Myocardial Perfusion Imaging (06/05/2025 3:58 PM EDT) Anatomical Region Laterality Modality Other us Historical Provider CV STRESS PROCEDURES Kate l Result documented in this encounter Visit Diagnoses Not on filedocumented in this encounter Care Teams Early Childhood Relationship Specialty Start Date End Date Carlito Murillo MD [address] [facility] [address] [address] PCP - General 05/24/24 documented as of this encounter
--- OUTSIDE RECORDS SUMMARY | 2025-06-06 19:59 | XMS_ITS | Encounter Summary ---
Author Organization [employer] [facility] tem Address [facility] [address] [place] [address] Care Team Providers Care Technical Training Coordinator Name Role Phone Carlito Murillo MD Primary Care Provider [phone] Encounter Details Date Type Department Care Team (Latest Contact Info) Description 06/01/2025 Travel Social History Tobacco Use Types Packs/Day Years [...] documented as of this encounter Visit Diagnoses Not on filedocumented in this encounter Additional Health Concerns Assessment Noted Time A Body Mass Index follow-up plan has been documented for the patient 06/01/2025 1:29 PM EDT documented as of this encounter Care Teams Technical Training Coordinator Relationship Specialty Start Date End Date Carlito Murillo MD PCP - General Family Medicine 06/06/19 documented as of this encounter
--- OUTSIDE RECORDS SUMMARY | 2025-06-06 19:59 | XMS_ITS | Patient Health Record ---
Author Organization The [facility] in [place] Address [address] [place] [address] Care Team Providers Care Linoleum Printer Name Role Phone Amadou Moran Primary Care Provider Omar Mares Unavailable [phone] GodwinMarlon rodriguez Unavailable [phone] Kaelyn Escamilla Unavailable [phone] Allergies Allergen (clinical drug ingredient) Drug/Non Drug [...] date:03/30/2025 01:10:37 PM Interpretation: Performing Lab: Notes/Report: [facility] , Magnesium 1.2 1.8-2.4 mg/dL Performing Lab: see note - [facility] LB PROF CHEM 8 (BAS METB) Reviewed date:04/09/2025 12:47:28 PM Interpretation: Performing Lab: Notes/Report: [facility] , Sodium 142 136-145 mmol/L Potassium [...] mg/dL Performing Lab: see note ML - [facility] LB CBC AUTO DIFF Reviewed date:06/13/2024 09:04:51 AM Interpretation: Performing Lab: Notes/Report: [facility] , White Blood Count 6.7 4.0-11.0 [...] Performing Lab: see note ML - [facility] LB PROF 14(COMP METB) Reviewed date:06/13/2024 08:52:50 PM Interpretation: Performing Lab: Notes/Report: [facility] , Sodium 142 136-145 mmol/L Potassium [...] Globulin Ratio 1.0 Performing Lab: see note - [facility] LB Prothrombin Time INR Reviewed date:06/13/2024 08:52:50 PM Interpretation: Performing Lab: Notes/Report: [facility] , Prothrombin Time 9.6 9.0-11.6 sec INR <0.93 DESIRED INR: 2.0-3.0 CONDITIONS NOT LISTED BELOW 2.5-3.5 FOR PROSTHETIC HEART VALVE REPLACEMENT 2.5-3.5 RECURRENT THROMBOSIS Performing Lab: see note - [facility] LB Troponin I High Sensitivity Reviewed date:06/13/2024 08:52:50 PM Interpretation: Performing Lab: Notes/Report: [facility] , Troponin I High Sensitivity 7.8 4.0-51.3 pg/mL CUT-OFF POINTS HAVE BEEN ESTABLISHED BASED ON THE FOURTH UNIVERSAL DEFINITION OF MYOCARDIAL INFARCTION. THE UPPER REFERENCE LIMIT (URL) OF TROPONIN, DEFINED THE 99TH PERCENTILE OF cTnI DISTRIBUTION IN A REFERENCE POPULATION, HAS BEEN CONFIRMED THE DECISION THRESHOLD FOR DC DIAGNOSIS. 99TH PERCENTILE = 51.4 PG/ML NOTE: HIGH-SENSITIVITY TROPONIN ASSAY IS NOT INTENDED TO BE USED IN ISOLATION BUT SHOULD BE INTERPRETED IN CONJUNCTION WITH OTHER DIAGNOSTIC AND CLINICAL INFORMATION. Performing Lab: see note ML - [facility] LB ECG 12 lead Reviewed date:08/06/2024 11:52:44 AM Interpretation: Performing Lab: Notes/Report: Source Facility: [facility]-[address] [place] [address] [place] [address] Electrocardiograph Report Signed Patient: ABY MADRIGAL MR#: [id number] : 1965 Acct:[id number] Age/Sex: 59 / F ADM Date: 07/31/24 Loc: MS 219-[address]: Kendra Moran M.D. Ordering Physician: Jose Long M.D. 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 Signed By: 08/03/242221 DD/ 1707 TD/TT: Pediatric Dermatologist: [place] [address] Electrocardiograph Report Signed Patient: ABY MADRIGAL MR#: [id number] : 1965 Acct:[id number] Age/Sex: 59 / F ADM Date: 07/31/24 Loc: MS 219-[address]: Zhanna Moran M.D. Ordering Physician: Jose Long M.D. 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 Signed By: 08/03/242 DD/ 1707 TD/TT: Pediatric Dermatologist: XR chest 1V Reviewed date:08/17/2024 06:37:37 PM Interpretation: Performing Lab: Notes/Report: Source Facility: [place] [address] [place] [address] XRay Report Signed Patient: ABY MADRIGAL MR#: [id number] : 1965 Acct:[id number] Age/Sex: 59 / F ADM Date: 08/17/24 Loc: ER Attending Dr: Ordering Physician: Jose Long M.D. Date of Service: 08/17/24 Procedure(s): XR chest 1V Accession Number(s): [id number] cc: Kendra Moran M.D.; Jose Long M.D. The [place] [address] Patient Name: ABY MADRIGAL MRN: [id number] date: 1965 Sex: F Assigned Patient Location: ER Current Patient Location: ER Accession/Order Number: [id number] Exam Date: 08/17/2024 16:18 Report Date: 08/17/2024 [...] Dictated By: Estuardo Turcios M.D. Signed By: 08/17/249 DD/ 36 TD/TT: Pediatric Dermatologist: The [address] [address] XRay Report Signed Patient: ABY MADRIGAL MR#: [id number] : 1965 Acct:[id number] Age/Sex: 59 / F ADM Date: 08/17/24 Loc: ER Attending Dr: Ordering Physician: Jose Long M.D. Date of Service: 08/17/24 Procedure(s): XR chest 1V Accession Number(s): [id number] cc: Kendra Moran M.D. ; Jose Long M.D. The [address] [address] Patient Name: ABY MADRIGAL MRN: [id number] date: 1965 Sex: F Assigned Patient Location: ER Current Patient Loca tion: ER Accession/Order Numb er: [id number] Exam Date: 08/17/2024 16:18 Report Date: 08/17/2024 [...] Dictated By: Kristyn Turcios M.D. Signed By: 08/17/241638 DD/ 36 TD/TT: Pediatric Dermatologist: CBC AUTO DIFF Reviewed date:06/18/2024 11:59:40 AM Interpretation: Performing Lab: Notes/Report: [facility] , White Blood Count 8.4 4.0-11.0 [...] 10 3/uL Performing Lab: see note - [facility] PROF CHEM 8 (BAS METB) Reviewed date:06/18/2024 11:59:40 AM Interpretation: Performing Lab: Notes/Report: [facility] , Sodium 135 136-145 mmol/L Potassium 3.0 3.5-5.1 mmol/L Chloride 99 98-107 mmol/L Carbon Dioxide 27.6 21.0-32.0 mmol/L Anion Gap 11.4 Glucose 154 74-106 mg/dL Blood Urea Nitrogen 19.0 7.0-18.0 mg/dL Creatinine 1.19 0.55-1.02 mg/dL Estimated GFR ( Candace 56 >=60 Estimated GFR (Non- Susi 46 >=60 BUN Creatinine Ratio 16.0 Calcium 9.1 8.5-10.1 mg/dL Performing Lab: see note ML - [facility] LB UA RANDOM W or MICROSCOPIC Reviewed date:06/18/2024 11:59:40 AM Interpretation: Performing Lab: Notes/Report: [facility] , Color Urine LT. YELLOW YELLOW Clarity Urine CLEAR CLEAR Specific [place] Urine <=1.005 1.005-1.025 pH Urine 6.0 5.0-9.0 [...] #/LPF Performing Lab: see note ML - [facility] LB Troponin I High Sensitivity Reviewed date:06/18/2024 11:59:40 AM Interpretation: Performing Lab: Notes/Report: [facility] , Troponin I High Sensitivity 10.7 4.0-51.3 pg/mL CUT-OFF POINTS HAVE BEEN ESTABLISHED BASED ON THE FOURTH UNIVERSAL DEFINITION OF MYOCARDIAL INFARCTION. THE UPPER REFERENCE LIMIT (URL) OF TROPONIN, DEFINED THE 99TH PERCENTILE OF cTnI DISTRIBUTION IN A REFERENCE POPULATION, HAS BEEN CONFIRMED THE DECISION THRESHOLD FOR DC DIAGNOSIS. 99TH PERCENTILE = 51.4 PG/ML NOTE: HIGH-SENSITIVITY TROPONIN ASSAY IS NOT INTENDED TO BE USED IN ISOLATION BUT SHOULD BE INTERPRETED IN CONJUNCTION WITH OTHER DIAGNOSTIC AND CLINICAL INFORMATION. Performing Lab: see note ML - [facility] LB PET skull to mid thigh Reviewed date:06/21/2024 08:32:10 PM Interpretation: Performing Lab: Notes/Report: Source Facility: [facility]-[address] [place] [address] [place] [address] PET Report Signed Patient: ABY MADRIGAL MR#: [id number] : 1965 Acct:[id number] Age/Sex: 59 / F ADM Date: 06/19/24 Loc: PETCT Attending Dr: Kendra Moran M.D. Ordering Physician: Kendra Moran M.D. Date of Service: 06/19/24 Procedure(s): PET skull to mid thigh Accession Number(s): [id number] cc: Kendra Moran M.D. [address] [address] Patient Name: ABY MADRIGAL MRN: [id number] date: 1965 Sex: F Assigned Patient Location: PETCT Current Patient Location: PETCT Accession/Order Number: [id number] Exam Date: 2024 16:48 Report Date: 06/21/2024 [...] M.D. Signed By: 06/21/241932 DD/ 29 TD/TT: Pediatric Dermatologist: [place] [address] PET Report Signed Patient: ABY MADRIGAL MR#: [id number] : 1965 Acct:[id number] Age/Sex: 59 / F ADM Date: 06/19/24 Loc: PETCT Attending Dr: Zhanna Moran M.D. Ordering Physician: Kendra Moran M.D. Date of Service: 06/19/24 Procedure(s): PET sk ull to mid thigh Accession Number(s): [id number] cc: Kendra Moran M.D. [place] [address] Patient Name: ABY MADRIGAL MRN: [id number] date: 1965 Sex: F Assigned Patient Location: PETCT Current Patient Loca tion: PETCT Accession/Order Numb er: [id number] Exam Date: 2024 16:48 Report Date: 06/21/2024 [...] M.D. Signed By: 06/21/241932 DD/ 29 TD/TT: Pediatric Dermatologist: RHEUMATOID FACTOR Reviewed date:06/29/2024 06:52:23 AM Interpretation: Performing Lab: Notes/Report: [facility] , Rheumatoid Factor (RF) <10.0 <14.0 IU/mL Performed at: [address] [id number] Transplant Worker: Gopi Romeo PhD, Phone: [phone] Performing Lab: see note - [facility] LB Erythrocyte Sedimentation Ra te Reviewed date:06/27/2024 05:44:29 PM Interpretation: Performing Lab: Notes/Report: [facility] , Erythrocyte Sedimentation Rate 91 <=30 mm/hr Performing Lab: see note [place] LB QuantiFERON-TB Gold Plus Reviewed date:06/29/2024 06:16:08 [...] <0.35 IU/mL. Chemiluminescence immunoassay methodology Performed at: [address] [id number] Transplant Worker: Gopi Romeo PhD, Phone: [phone] QuantiFERON Criteria Comment . QuantiFERON-TB Gold Plus [...] >10.00 . IU/mL Performing Lab: see note - [facility] LB Angiotensin-Converting Enzym e Reviewed date:06/29/2024 06:52:12 AM Interpretation: Performing Lab: Notes/Report: [facility] , Angiotensin-Converting Enzyme 21 14-82 U/L Performed at: [address] [id number] Transplant Worker: Gopi Romeo PhD, Phone: [phone] Performing Lab: see note [facility] LB Antiscleroderma-70 Antibodie s Reviewed date:06/29/2024 06:52:09 AM Interpretation: Performing Lab: Notes/Report: [facility] , Antiscleroderma-70 Antibodies <0.2 0.0-0.9 AI Performing Lab: see note [facility] LB Anti-CCP Ab, IgG/IgA Reviewed date:06/29/2024 06:52:06 AM Interpretation: Performing Lab: Notes/Report: [facility] , Anti-CCP Ab, IgG/IgA 3 0-19 units Negative <20 Weak positive 20 - 39 Moderate positive 40 - 59 Strong positive >59 Performed at: [address] [id number] Transplant Worker: Gopi Romeo PhD, Phone: [phone] Performing Lab: see note [facility] LB TY w/Reflex Reviewed date:06/29/2024 06:51:59 AM Interpretation: Performing Lab: Notes/Report: [facility] , TY Direct Negative Negative Performed at: [address] [id number] Transplant Worker: Gopi Romeo PhD, Phone: [phone] Performing Lab: see note [facility] LB Histoplasma Gal'priyanka Ag Ur Reviewed date:06/28/2024 04:24:32 PM Interpretation: Performing Lab: Notes/Report: URINE [facility] , Histoplasma Gal'priyanka Ag Ur Negative <0.2 ng/mL Performed at: [address] [id number] Transplant Worker: Kelsey Ceron MD, Phone: [phone] Performing Lab: see note [facility] LB Histoplasma capsulatum Abs. Reviewed date:07/01/2024 01:06:15 PM Interpretation: Performing Lab: Notes/Report: [facility] , Histoplasma Mycelial CF Ab. Negative Neg:<1:2 Histoplasma Yeast CF Ab Negative Neg:<1:2 Performed at: [address] [id number] Transplant Worker: Kelsey Ceron MD, Phone: [phone] Performing Lab: see note - [facility] LB Blastomyces Abs, Qn, DID Reviewed date:07/01/2024 01:10:06 PM Interpretation: Performing Lab: Notes/Report: [facility] , Blastomyces Abs, Qn, DID Negative Neg:<1:1 Performed at: [address] [id number] Transplant Worker: Kelsey Ceron MD, Phone: [phone] Performing Lab: see note - [facility] LB Aspergillus Ab, Qn, DID Reviewed date:07/01/2024 01:06:18 PM Interpretation: Performing Lab: Notes/Report: [facility] , Aspergillus fumigatus Negative Neg:<1:1 Aspergillus flavus Negative Neg:<1:1 Aspergillus niger Negative Neg:<1:1 Performing Lab: see note - [facility] LB ANCA Profile Reviewed date:06/29/2024 06:52:02 AM [...] sclerosing cholangitis and autoimmune hepatitis. Performed at: [address] [id number] Transplant Worker: Kelsey Ceron MD, Phone: [phone] Performed at: [address] [id number] Transplant Worker: Gopi Romeo PhD, Phone: [phone] Performing Lab: see note - [facility] LB Anti-GBM Antibodies Reviewed date:06/29/2024 06:51:56 AM Interpretation: Performing Lab: Notes/Report: [facility] , Anti-GBM Antibodies <0.2 0.0-0.9 units Performed at: [address] [id number] Transplant Worker: Kelsey Ceron MD, Phone: [phone] Performing Lab: see note - [facility] BNP Reviewed date:06/29/2024 06:16:08 PM Interpretation: Performing Lab: Notes/Report: Comment use ER blood? [facility] , NT Pro B Type Natriuretic Pept 276.0 <=900.0 pg/mL Performing Lab: see note - [facility] LB CBC AUTO DIFF Reviewed date:06/29/2024 06:16:08 PM Interpretation: Performing Lab: Notes/Report: [facility] , White Blood Count 7.1 4.0-11.0 [...] 3/uL Performing Lab: see note ML - [facility] LB MAGNESIUM Reviewed date:06/29/2024 06:16:08 PM Interpretation: Performing Lab: Notes/Report: Comment if not done in er [facility] , Magnesium 1.7 1.8-2.4 mg/dL Performing Lab: see note - [facility] LB PROF 14(COMP METB) Reviewed date:06/29/2024 06:16:08 PM Interpretation: Performing Lab: Notes/Report: [facility] , Sodium 142 136-145 mmol/L Potassium [...] 1.0 Performing Lab: see note ML - [facility] LB PTT Reviewed date:07/02/2024 10:37:00 AM Interpretation: Performing Lab: Notes/Report: [facility] , Partial Thromboplastin Time 21.5 22.3-36.2 sec Performing Lab: see note - [facility] Troponin I High Sensitivity Reviewed date:06/29/2024 06:16:08 PM Interpretation: Performing Lab: Notes/Report: [facility] , Troponin I High Sensitivity 7.7 4.0-51.3 pg/mL CUT-OFF POINTS HAVE BEEN ESTABLISHED BASED ON THE FOURTH UNIVERSAL DEFINITION OF MYOCARDIAL INFARCTION. THE UPPER REFERENCE LIMIT (URL) OF TROPONIN, DEFINED THE 99TH PERCENTILE OF cTnI DISTRIBUTION IN A REFERENCE POPULATION, HAS BEEN CONFIRMED THE DECISION THRESHOLD FOR DC DIAGNOSIS. 99TH PERCENTILE = 51.4 PG/ML NOTE: HIGH-SENSITIVITY TROPONIN ASSAY IS NOT INTENDED TO BE USED IN ISOLATION BUT SHOULD BE INTERPRETED IN CONJUNCTION WITH OTHER DIAGNOSTIC AND CLINICAL INFORMATION. Performing Lab: see note - [facility] CA echo doppler complete Reviewed date:06/29/2024 06:16:08 PM Interpretation: Performing Lab: Notes/Report: Source Facility: [place] [address] Cardiology Report Signed Patient: ABY MADRIGAL MR#: [id number] : 1965 Acct:[id number] Age/Sex: 59 / F ADM Date: 06/29/24 Loc: MS 216-[address]: Kendra Moran M.D. Ordering Physician: Kendra Moran M.D. Date of Service: 06/29/24 Procedure(s): CA echo doppler complete Accession Number(s): [id number] cc: Kendra Moran M.D. Patient Name: ABY MADRIGAL MR#: [id number] : 1965 Exam Date: 06/29/2024 Ordering Doctor: [...] Signed By: 06/29/24 1347 DD/ 1346 TD/TT: Pediatric Dermatologist: [place] [address] Cardiology Report Signed Patient: ABY MADRIGAL MR#: [id number] : 1965 Acct:[id number] Age/Sex: 59 / F ADM Date: 06/29/24 Loc: MS 216-[address]: Zhanna Moran M.D. Ordering Physician: Kendra Moran M.D. Date of Service: 06/29/24 Procedure(s): CA ech o doppler complete Accession Number(s): [id number] cc: Kendra Moran M.D. Patient Name: ABY MADRIGAL MR#: [id number] : 1965 Exam Date: 06/29/2024 Ordering Doctor: [...] Signed By: 06/29/24 1347 DD/ 1346 TD/TT: Pediatric Dermatologist: US renal doppler Reviewed date:06/29/2024 06:16:08 PM Interpretation: Performing Lab: Notes/Report: Source Facility: [facility]-[address] [place] [address] [place] [address] Ultrasound Report Signed Patient: ABY MADRIGAL MR#: [id number] : 1965 Acct:[id number] Age/Sex: 59 / F ADM Date: 06/29/24 Loc: MS 216-[address]: Kendra Moran M.D. Ordering Physician: Kendra Moran M.D. Date of Service: 06/29/24 Procedure(s): US renal doppler Accession Number(s): [id number] cc: Kendra Moran M.D. [address] [address] Patient Name: ABY MADRIGAL MRN: [employer]:[id number] date: 1965 Sex: F Assigned Patient Location: MS Current Patient Location: MS Accession/Order Number: [id number] Exam Date: 06/29/2024 08:20 Report Date: 06/29/2024 [...] of RA stenosis by color-Doppler US from [place] (Am J Hypertens, 1996). Normal [...] Signed By: 06/29/24 1031 DD/ 1029 TD/TT: Pediatric Dermatologist: [place] [address] Ultrasound Report Signed Patient: ABY MADRIGAL MR#: [id number] : 1965 Acct:[id number] Age/Sex: 59 / F ADM Date: 06/29/24 Loc: MS 216-[address]: Zhanna Moran M.D. Ordering Physician: Kendra Moran M.D. Date of Service: 06/29/24 Procedure(s): US betty al doppler Accession Number(s): [id number] cc: Kendra Moran M.D. [address] [address] Patient Name: ABY MADRIGAL MRN: [id number] date: 1965 Sex: F Assigned Patient Location: MS Current Patient Loca tion: MS Accession/Order Numb er: [id number] Exam Date: 06/29/2024 08:20 Report Date: 06/29/2024 [...] of the liver. Reference: J Ultraso und. 2009 Dec: 12(4): 133-143. Based on classification of RA stenosis by color-Doppler US from [place] (Am J Hypertens, 1996). Normal [...] Signed By: 06/29/24 1031 DD/ 1029 TD/TT: Pediatric Dermatologist: Troponin I High Sensitivity Reviewed date:06/29/2024 06:16:08 PM Interpretation: Performing Lab: Notes/Report: [facility] , Troponin I High Sensitivity 8.7 4.0-51.3 pg/mL CUT-OFF POINTS HAVE BEEN ESTABLISHED BASED ON THE FOURTH UNIVERSAL DEFINITION OF MYOCARDIAL INFARCTION. THE UPPER REFERENCE LIMIT (URL) OF TROPONIN, DEFINED THE 99TH PERCENTILE OF cTnI DISTRIBUTION IN A REFERENCE POPULATION, HAS BEEN CONFIRMED THE DECISION THRESHOLD FOR DC DIAGNOSIS. 99TH PERCENTILE = 51.4 PG/ML NOTE: HIGH-SENSITIVITY TROPONIN ASSAY IS NOT INTENDED TO BE USED IN ISOLATION BUT SHOULD BE INTERPRETED IN CONJUNCTION WITH OTHER DIAGNOSTIC AND CLINICAL INFORMATION. Performing Lab: see note ML - [facility] LB Troponin I High Sensitivity Reviewed date:06/29/2024 06:16:08 PM Interpretation: Performing Lab: Notes/Report: [facility] , Troponin I High Sensitivity 11.3 4.0-51.3 pg/mL CUT-OFF POINTS HAVE BEEN ESTABLISHED BASED ON THE FOURTH UNIVERSAL DEFINITION OF MYOCARDIAL INFARCTION. THE UPPER REFERENCE LIMIT (URL) OF TROPONIN, DEFINED THE 99TH PERCENTILE OF cTnI DISTRIBUTION IN A REFERENCE POPULATION, HAS BEEN CONFIRMED THE DECISION THRESHOLD FOR DC DIAGNOSIS. 99TH PERCENTILE = 51.4 PG/ML NOTE: HIGH-SENSITIVITY TROPONIN ASSAY IS NOT INTENDED TO BE USED IN ISOLATION BUT SHOULD BE INTERPRETED IN CONJUNCTION WITH OTHER DIAGNOSTIC AND CLINICAL INFORMATION. Performing Lab: see note ML - [facility] LB Troponin I High Sensitivity Reviewed date:06/29/2024 06:16:08 PM Interpretation: Performing Lab: Notes/Report: [facility] , Troponin I High Sensitivity 65.1 4.0-51.3 pg/mL RESULTS CALLED TO KATHERINE MCELROY/MEGAN IN MED SURG CUT-OFF POINTS HAVE BEEN ESTABLISHED BASED ON THE FOURTH UNIVERSAL DEFINITION OF MYOCARDIAL INFARCTION. THE UPPER REFERENCE LIMIT (URL) OF TROPONIN, DEFINED THE 99TH PERCENTILE OF cTnI DISTRIBUTION IN A REFERENCE POPULATION, HAS BEEN CONFIRMED THE DECISION THRESHOLD FOR DC DIAGNOSIS. 99TH PERCENTILE = 51.4 PG/ML NOTE: HIGH-SENSITIVITY TROPONIN ASSAY IS NOT INTENDED TO BE USED IN ISOLATION BUT SHOULD BE INTERPRETED IN CONJUNCTION WITH OTHER DIAGNOSTIC AND CLINICAL INFORMATION. Performing Lab: see note ML - [facility] LB Troponin I High Sensitivity Reviewed date:07/02/2024 10:36:59 AM Interpretation: Performing Lab: Notes/Report: [facility] , Troponin I High Sensitivity 105.8 4.0-51.3 pg/mL RESULTS CALLED TO Samara GALLOWAY)@BY NIC WaltersT at 1938 CUT-OFF POINTS HAVE BEEN ESTABLISHED BASED ON THE FOURTH UNIVERSAL DEFINITION OF MYOCARDIAL INFARCTION. THE UPPER REFERENCE LIMIT (URL) OF TROPONIN, DEFINED THE 99TH PERCENTILE OF cTnI DISTRIBUTION IN A REFERENCE POPULATION, HAS BEEN CONFIRMED THE DECISION THRESHOLD FOR DC DIAGNOSIS. 99TH PERCENTILE = 51.4 PG/ML NOTE: HIGH-SENSITIVITY TROPONIN ASSAY IS NOT INTENDED TO BE USED IN ISOLATION BUT SHOULD BE INTERPRETED IN CONJUNCTION WITH OTHER DIAGNOSTIC AND CLINICAL INFORMATION. Performing Lab: see note ML - [facility] LB CBC AUTO DIFF Reviewed date:07/03/2024 09:09:41 AM Interpretation: Performing Lab: Notes/Report: [facility] , White Blood Count 9.1 4.0-11.0 [...] 3/uL Performing Lab: see note ML - [facility] LB PROF 14(COMP METB) Reviewed date:07/03/2024 09:09:41 AM Interpretation: Performing Lab: Notes/Report: [facility] , Sodium 138 136-145 mmol/L Potassium [...] 0.9 Performing Lab: see note ML - [facility] LB Troponin I High Sensitivity Reviewed date:07/03/2024 09:09:41 AM Interpretation: Performing Lab: Notes/Report: [facility] , Troponin I High Sensitivity 85.2 4.0-51.3 pg/mL RESULTS CALLED TO ADELIA GARCIA RN CUT-OFF POINTS HAVE BEEN ESTABLISHED BASED ON THE FOURTH UNIVERSAL DEFINITION OF MYOCARDIAL INFARCTION. THE UPPER REFERENCE LIMIT (URL) OF TROPONIN, DEFINED THE 99TH PERCENTILE OF cTnI DISTRIBUTION IN A REFERENCE POPULATION, HAS BEEN CONFIRMED THE DECISION THRESHOLD FOR DC DIAGNOSIS. 99TH PERCENTILE = 51.4 PG/ML NOTE: HIGH-SENSITIVITY TROPONIN ASSAY IS NOT INTENDED TO BE USED IN ISOLATION BUT SHOULD BE INTERPRETED IN CONJUNCTION WITH OTHER DIAGNOSTIC AND CLINICAL INFORMATION. Performing Lab: see note ML - [facility] LB Troponin I High Sensitivity Reviewed date:07/03/2024 09:09:41 AM Interpretation: Performing Lab: Notes/Report: [facility] , Troponin I High Sensitivity 82.8 4.0-51.3 pg/mL RESULTS CALLED TO ER Dr. Roberto Romeo @BY Marvin Oconnell MLT at 1928 CUT-OFF POINTS HAVE BEEN ESTABLISHED BASED ON THE FOURTH UNIVERSAL DEFINITION OF MYOCARDIAL INFARCTION. THE UPPER REFERENCE LIMIT (URL) OF TROPONIN, DEFINED THE 99TH PERCENTILE OF cTnI DISTRIBUTION IN A REFERENCE POPULATION, HAS BEEN CONFIRMED THE DECISION THRESHOLD FOR DC DIAGNOSIS. 99TH PERCENTILE = 51.4 PG/ML NOTE: HIGH-SENSITIVITY TROPONIN ASSAY IS NOT INTENDED TO BE USED IN ISOLATION BUT SHOULD BE INTERPRETED IN CONJUNCTION WITH OTHER DIAGNOSTIC AND CLINICAL INFORMATION. Performing Lab: see note ML - [facility] LB CBC AUTO DIFF Reviewed date:07/18/2024 08:49:46 PM Interpretation: Performing Lab: Notes/Report: [facility] , White Blood Count 9.1 4.0-11.0 [...] 10 3/uL Performing Lab: see note - [facility] D-DIMER Reviewed date:07/18/2024 08:49:46 PM Interpretation: Performing Lab: Notes/Report: [facility] , D Dimer 0.57 <=0.59 mg/L [...] generalized hospitalization. Performing Lab: see note - [facility] PROF CHEM 8 (BAS METB) Reviewed date:07/18/2024 08:49:46 PM Interpretation: Performing Lab: Notes/Report: [facility] [facility] , Sodium 143 136-145 mmol/L Potassium 3.1 3.5-5.1 mmol/L Chloride 104 98-107 mmol/L Carbon Dioxide 29.0 21.0-32.0 mmol/L Anion Gap 13.1 Glucose 109 74-106 mg/dL Blood Urea Nitrogen 15.0 7.0-18.0 mg/dL Creatinine 1.40 0.55-1.02 mg/dL Estimated GFR ( Candace 46 >=60 Estimated GFR (Non- Susi 38 >=60 BUN Creatinine Ratio 10.7 Calcium 9.0 8.5-10.1 mg/dL Performing Lab: see note ML - [facility] LB UA (CLEAN or CATCH) PLANNING COORDINATOR or M ICRO IF IND. Reviewed date:07/18/2024 08:49:46 PM Interpretation: Performing Lab: Notes/Report: [facility] , Color Urine LT. YELLOW YELLOW Clarity Urine CLEAR CLEAR Specific [place] Urine 1.015 1.005-1.025 pH Urine 6.0 5.0-9.0 Protein Urine TRACE NEG/TRACE mg/dL Glucose Urine UA NEGATIVE NEGATIVE mg/dL Bilirubin Urine NEGATIVE NEGATIVE Ketones Urine NEGATIVE NEGATIVE mg/dL Blood Urine NEGATIVE NEGATIVE Nitrite Urine NEGATIVE NEGATIVE Urobilinogen Urine 0.2 0.2-1.0 EU/dL Leukocyte Esterase Urine NEGATIVE NEGATIVE Urine Microscopic Indicated NO Performing Lab: see note ML - [facility] LB Troponin I High Sensitivity Reviewed date:07/18/2024 08:49:46 PM Interpretation: Performing Lab: Notes/Report: [facility] , Troponin I High Sensitivity 9.9 4.0-51.3 pg/mL CUT-OFF POINTS HAVE BEEN ESTABLISHED BASED ON THE FOURTH UNIVERSAL DEFINITION OF MYOCARDIAL INFARCTION. THE UPPER REFERENCE LIMIT (URL) OF TROPONIN, DEFINED THE 99TH PERCENTILE OF cTnI DISTRIBUTION IN A REFERENCE POPULATION, HAS BEEN CONFIRMED THE DECISION THRESHOLD FOR DC DIAGNOSIS. 99TH PERCENTILE = 51.4 PG/ML NOTE: HIGH-SENSITIVITY TROPONIN ASSAY IS NOT INTENDED TO BE USED IN ISOLATION BUT SHOULD BE INTERPRETED IN CONJUNCTION WITH OTHER DIAGNOSTIC AND CLINICAL INFORMATION. Performing Lab: see note ML - [facility] LB Troponin I High Sensitivity Reviewed date:07/19/2024 12:16:47 PM Interpretation: Performing Lab: Notes/Report: [facility] , Troponin I High Sensitivity 12.5 4.0-51.3 pg/mL CUT-OFF POINTS HAVE BEEN ESTABLISHED BASED ON THE FOURTH UNIVERSAL DEFINITION OF MYOCARDIAL INFARCTION. THE UPPER REFERENCE LIMIT (URL) OF TROPONIN, DEFINED THE 99TH PERCENTILE OF cTnI DISTRIBUTION IN A REFERENCE POPULATION, HAS BEEN CONFIRMED THE DECISION THRESHOLD FOR DC DIAGNOSIS. 99TH PERCENTILE = 51.4 PG/ML NOTE: HIGH-SENSITIVITY TROPONIN ASSAY IS NOT INTENDED TO BE USED IN ISOLATION BUT SHOULD BE INTERPRETED IN CONJUNCTION WITH OTHER DIAGNOSTIC AND CLINICAL INFORMATION. Performing Lab: see note ML - [facility] LB BNP Reviewed date:07/21/2024 10:43:54 AM Interpretation: Performing Lab: Notes/Report: [facility] , NT Pro B Type Natriuretic Pept 620.0 <=900.0 pg/mL Performing Lab: see note ML - [facility] LB CBC AUTO DIFF Reviewed date:07/21/2024 10:43:54 AM Interpretation: Performing Lab: Notes/Report: [facility] , White Blood Count 11.3 4.0-11.0 [...] Performing Lab: see note ML - [facility] LB D-DIMER Reviewed date:07/21/2024 10:43:54 AM Interpretation: Performing Lab: Notes/Report: [facility] , D Dimer 0.68 <=0.59 mg/L [...] hospitalization. Performing Lab: see note ML - [facility] LAB TESTING Reviewed date:08/03/2024 09:44:19 PM Interpretation: Performing Lab: Notes/Report: [id number] Dexamethasone ([employer]) [facility] , Miscellaneous Test COMMENT . Test Ordered: [id number] Dexamethasone, Serum Dexamethasone, Serum 377 ng/dL ES [...] previous day: 1600 - 2850 Performed at: [facility] [address] [place] [id number] Transplant Worker: Luigi Jackman MD, Phone: [phone] Performed at: [facility] [address] [id number] Transplant Worker: Gopi Romeo PhD, Phone: [phone] Performing Lab: see note - [facility] LB LIPASE Reviewed date:07/21/2024 10:43:54 AM Interpretation: Performing Lab: Notes/Report: [facility] , Lipase 39.0 16.0-77.0 U/L Performing Lab: see note ML - [facility] LIVER PROFILE Reviewed date:07/21/2024 10:43:54 AM Interpretation: Performing Lab: Notes/Report: [facility] , Bilirubin Total 0.5 0.2-1.0 mg/dL Bilirubin Direct 0.2 0.0-0.2 mg/dL Aspartate Amino Transferase 40 15-37 U/L Alanine Aminotransferase 70 14-59 U/L Alkaline Phosphatase 93 46-116 U/L Total Protein 7.4 6.4-8.2 g/dL Albumin Level 3.7 3.4-5.0 g/dL Globulin 3.7 Albumin Globulin Ratio 1.0 Performing Lab: see note ML - [facility] LB MAGNESIUM Reviewed date:07/21/2024 10:43:54 AM Interpretation: Performing Lab: Notes/Report: [facility] , Magnesium 1.8 1.8-2.4 mg/dL Performing Lab: see note ML - [facility] LB PHOSPHORUS Reviewed date:07/21/2024 10:43:54 AM Interpretation: Performing Lab: Notes/Report: [facility] , Phosphorus 3.4 2.6-4.7 mg/dL Performing Lab: see note ML - [facility] LB UA RANDOM W or MICROSCOPIC Reviewed date:07/21/2024 10:43:54 AM Interpretation: Performing Lab: Notes/Report: [facility] , Color Urine LT. YELLOW YELLOW Clarity Urine CLEAR CLEAR Specific [place] Urine 1.015 1.005-1.025 pH Urine 6.0 5.0-9.0 [...] YES Performing Lab: see note ML - [facility] LB Troponin I High Sensitivity Reviewed date:07/20/2024 07:30:18 PM Interpretation: Performing Lab: Notes/Report: [facility] , Troponin I High Sensitivity 12.6 4.0-51.3 pg/mL CUT-OFF POINTS HAVE BEEN ESTABLISHED BASED ON THE FOURTH UNIVERSAL DEFINITION OF MYOCARDIAL INFARCTION. THE UPPER REFERENCE LIMIT (URL) OF TROPONIN, DEFINED THE 99TH PERCENTILE OF cTnI DISTRIBUTION IN A REFERENCE POPULATION, HAS BEEN CONFIRMED THE DECISION THRESHOLD FOR DC DIAGNOSIS. 99TH PERCENTILE = 51.4 PG/ML NOTE: HIGH-SENSITIVITY TROPONIN ASSAY IS NOT INTENDED TO BE USED IN ISOLATION BUT SHOULD BE INTERPRETED IN CONJUNCTION WITH OTHER DIAGNOSTIC AND CLINICAL INFORMATION. Performing Lab: see note - [facility] Cortisol Reviewed date:07/21/2024 10:43:54 AM Interpretation: Performing Lab: Notes/Report: [facility] , Cortisol 1.7 6.2-19.4 ug/dL Please Note: The reference interval and flagging for this test is for an AM collection. If this is a PM collection please use: Cortisol PM: 2.3-11.9 Performed at: [address] [id number] Transplant Worker: Gopi Romeo PhD, Phone: [phone] Performing Lab: see note [facility] Aldosterone LCMS, Serum Reviewed date:07/26/2024 07:34:52 PM Interpretation: Performing Lab: Notes/Report: [facility] , Aldosterone LCMS, Serum 4.4 0.0-30.0 ng/dL This test was developed and its performance characteristics determined by [facility]. It has not been cleared or approved by the Food and Drug Administration. Performed at: [address] [id number] Transplant Worker: Kelsey Ceron MD, Phone: [phone] Performing Lab: see note [facility] Troponin I High Sensitivity Reviewed date:07/21/2024 10:43:54 AM Interpretation: Performing Lab: Notes/Report: [facility] , Troponin I High Sensitivity 12.3 4.0-51.3 pg/mL CUT-OFF POINTS HAVE BEEN ESTABLISHED BASED ON THE FOURTH UNIVERSAL DEFINITION OF MYOCARDIAL INFARCTION. THE UPPER REFERENCE LIMIT (URL) OF TROPONIN, DEFINED THE 99TH PERCENTILE OF cTnI DISTRIBUTION IN A REFERENCE POPULATION, HAS BEEN CONFIRMED THE DECISION THRESHOLD FOR DC DIAGNOSIS. 99TH PERCENTILE = 51.4 PG/ML NOTE: HIGH-SENSITIVITY TROPONIN ASSAY IS NOT INTENDED TO BE USED IN ISOLATION BUT SHOULD BE INTERPRETED IN CONJUNCTION WITH OTHER DIAGNOSTIC AND CLINICAL INFORMATION. Performing Lab: see note - [facility] PROF CHEM 8 (BAS METB) Reviewed date:07/21/2024 10:43:54 AM Interpretation: Performing Lab: Notes/Report: [facility] , Sodium 143 136-145 mmol/L Potassium [...] Performing Lab: see note ML - [facility] Troponin I High Sensitivity Reviewed date:07/21/2024 10:43:54 AM Interpretation: Performing Lab: Notes/Report: [facility] , Troponin I High Sensitivity 13.1 4.0-51.3 pg/mL CUT-OFF POINTS HAVE BEEN ESTABLISHED BASED ON THE FOURTH UNIVERSAL DEFINITION OF MYOCARDIAL INFARCTION. THE UPPER REFERENCE LIMIT (URL) OF TROPONIN, DEFINED THE 99TH PERCENTILE OF cTnI DISTRIBUTION IN A REFERENCE POPULATION, HAS BEEN CONFIRMED THE DECISION THRESHOLD FOR DC DIAGNOSIS. 99TH PERCENTILE = 51.4 PG/ML NOTE: HIGH-SENSITIVITY TROPONIN ASSAY IS NOT INTENDED TO BE USED IN ISOLATION BUT SHOULD BE INTERPRETED IN CONJUNCTION WITH OTHER DIAGNOSTIC AND CLINICAL INFORMATION. Performing Lab: see note ML - [facility] LB PROF 14(COMP METB) Reviewed date:07/21/2024 10:43:54 AM Interpretation: Performing Lab: Notes/Report: [facility] , Sodium 143 136-145 mmol/L Potassium [...] Performing Lab: see note ML - [facility] LB CT abdomen pelvis wo con Reviewed date:07/21/2024 10:43:54 AM Interpretation: Performing Lab: Notes/Report: Source Facility: [place] [address] [place] [address] CT Scan Report Signed Patient: ABY MADRIGAL MR#: [id number] : 1965 Acct:[id number] Age/Sex: 59 / F ADM Date: 07/20/24 Loc: [place] 219-[address]: Kendra Moran M.D. Ordering Physician: Priti Singh NP Date of Service: 07/20/24 Procedure(s): CT abdomen pelvis wo con Accession Number(s): [id number] cc: Kendra Moran M.D. [place] [address] Patient Name: ABY MADRIGAL MRN: [id number] date: 1965 Sex: F Assigned Patient Location: [place] Current Patient Location: Accession/Order Number: [id number] Exam Date: 07/20/2024 23:28 Report Date: 07/21/2024 [...] M.D. Signed By: 07/21/24107 DD/ 3 TD/TT: Pediatric Dermatologist: [place] [address] CT Scan Report Signed Patient: ABY MADRIGAL MR#: [id number] : 1965 Acct:[id number] Age/Sex: 59 / F ADM Date: 07/20/24 Loc: [place] 219-[address]: Zhanna Moran M.D. Ordering Physician: Priti Singh NP Date of Service: 07/20/24 Procedure(s): CT abd omen pelvis wo con Accession Number(s): [id number] cc: Kendra Moran M.D. The [place] [id number] Patient Name: ABY MADRIGAL MRN: [id number] date: 1965 Sex: F Assigned Patient Location: Current Patient Location: Accession/Order Numb er: [id number] Exam Date: 07/20/2024 23:28 Report Date: 07/21/2024 [...] M.D. Signed By: 07/21/24107 DD/ 3 TD/TT: Pediatric Dermatologist: CT angio chest Reviewed date:07/21/2024 10:43:54 AM Interpretation: Performing Lab: Notes/Report: Source Facility: [place] [address] CT Scan Report Signed Patient: ABY MADRIGAL MR#: [id number] : 1965 Acct:[id number] Age/Sex: 59 / F ADM Date: 07/20/24 Loc: [place] 219-[address]: Kendra Moran M.D. Ordering Physician: Priti Singh NP Date of Service: 07/20/24 Procedure(s): CT angio chest Accession Number(s): [id number] cc: Kendra Moran M.D. [facility] [place] [address] Patient Name: ABY MADRIGAL MRN: [id number] date: 1965 Sex: F Assigned Patient Location: [place] Current Patient Location: [place] Accession/Order Number: [id number] Exam Date: 07/20/2024 23:28 Report Date: 07/21/2024 [...] M.D. Signed By: 07/21/24115 DD/ 2 TD/TT: Pediatric Dermatologist: [place] [address] CT Scan Report Signed Patient: ABY MADRIGAL MR#: [id number] : 1965 Acct:[id number] Age/Sex: 59 / F ADM Date: 07/20/24 Loc: [place] 219-[address]: Zhanna Moran M.D. Ordering Physician: Priti Singh NP Date of Service: 07/20/24 Procedure(s): CT ang io chest Accession Number(s): [id number] cc: Kendra Moran M.D. [place] [address] Patient Name: ABY MADRIGAL MRN: [id number] date: 1965 Sex: F Assigned Patient Location: [place] Current Patient Loca tion: [place] Accession/Order Numb er: [id number] Exam Date: 07/20/2024 23:28 Report Date: 07/21/2024 [...] M.D. Signed By: 07/21/24115 DD/ 2 TD/TT: Pediatric Dermatologist: CBC AUTO DIFF Reviewed date:07/24/2024 12:00:18 PM Interpretation: Performing Lab: Notes/Report: [facility] , White Blood Count 6.9 4.0-11.0 [...] Performing Lab: see note ML - [facility] LB PROF CHEM 8 (BAS METB) Reviewed date:07/24/2024 12:00:18 PM Interpretation: Performing Lab: Notes/Report: [facility] , Sodium 145 136-145 mmol/L Potassium 3.2 3.5-5.1 mmol/L Chloride 109 98-107 mmol/L Carbon Dioxide 28.7 21.0-32.0 mmol/L Anion Gap 10.5 Glucose 139 74-106 mg/dL Blood Urea Nitrogen 12.0 7.0-18.0 mg/dL Creatinine 1.28 0.55-1.02 mg/dL Estimated GFR ( Candace 52 >=60 Estimated GFR (Non- Susi 43 >=60 BUN Creatinine Ratio 9.4 Calcium 9.0 8.5-10.1 mg/dL Performing Lab: see note ML - [facility] Troponin I High Sensitivity Reviewed date:07/24/2024 12:00:18 PM Interpretation: Performing Lab: Notes/Report: [facility] , Troponin I High Sensitivity 12.8 4.0-51.3 pg/mL CUT-OFF POINTS HAVE BEEN ESTABLISHED BASED ON THE FOURTH UNIVERSAL DEFINITION OF MYOCARDIAL INFARCTION. THE UPPER REFERENCE LIMIT (URL) OF TROPONIN, DEFINED THE 99TH PERCENTILE OF cTnI DISTRIBUTION IN A REFERENCE POPULATION, HAS BEEN CONFIRMED THE DECISION THRESHOLD FOR DC DIAGNOSIS. 99TH PERCENTILE = 51.4 PG/ML NOTE: HIGH-SENSITIVITY TROPONIN ASSAY IS NOT INTENDED TO BE USED IN ISOLATION BUT SHOULD BE INTERPRETED IN CONJUNCTION WITH OTHER DIAGNOSTIC AND CLINICAL INFORMATION. Performing Lab: see note - [facility] PROF CHEM 8 (BAS METB) Reviewed date:07/25/2024 08:57:52 PM Interpretation: Performing Lab: Notes/Report: [facility] , Sodium 146 136-145 mmol/L Potassium 3.3 3.5-5.1 mmol/L Chloride 109 98-107 mmol/L Carbon Dioxide 25.2 21.0-32.0 mmol/L Anion Gap 15.1 Glucose 108 74-106 mg/dL Blood Urea Nitrogen 13.0 7.0-18.0 mg/dL Creatinine 1.23 0.55-1.02 mg/dL Estimated GFR ( Candace 54 >=60 Estimated GFR (Non- Susi 45 >=60 BUN Creatinine Ratio 10.6 Calcium 9.1 8.5-10.1 mg/dL Performing Lab: see note ML - [facility] CBC AUTO DIFF Reviewed date:07/26/2024 07:34:52 PM Interpretation: Performing Lab: Notes/Report: [facility] , White Blood Count 7.2 4.0-11.0 [...] 10 3/uL Performing Lab: see note - [facility] LB PROF CHEM 8 (BAS METB) Reviewed date:07/26/2024 07:34:52 PM Interpretation: Performing Lab: Notes/Report: [facility] , Sodium 144 136-145 mmol/L Potassium 3.5 3.5-5.1 mmol/L Chloride 107 98-107 mmol/L Carbon Dioxide 25.3 21.0-32.0 mmol/L Anion Gap 15.2 Glucose 101 74-106 mg/dL Blood Urea Nitrogen 14.0 7.0-18.0 mg/dL Creatinine 1.24 0.55-1.02 mg/dL Estimated GFR ( Candace 53 >=60 Estimated GFR (Non- Susi 44 >=60 BUN Creatinine Ratio 11.3 Calcium 9.1 8.5-10.1 mg/dL Performing Lab: see note - [facility] LB CBC AUTO DIFF Reviewed date:07/28/2024 04:17:33 PM Interpretation: Performing Lab: Notes/Report: [facility] , White Blood Count 9.8 4.0-11.0 [...] fL Performing Lab: see note ML - [facility] LB D-DIMER Reviewed date:07/28/2024 04:17:34 PM Interpretation: Performing Lab: Notes/Report: [facility] , D Dimer 0.36 <=0.59 mg/L [...] hospitalization. Performing Lab: see note ML - [facility] LB LACTATE or LACTIC ACID Reviewed date:07/28/2024 04:17:34 PM Interpretation: Performing Lab: Notes/Report: [facility] , Lactate/Lactic Acid 2.4 0.4-2.0 mmol/L RESULT S CALLED TO JULIENNE DOBBS/MEGAN IN ER Performing Lab: see note [place] LB PROF 14(COMP METB) Reviewed date:07/28/2024 04:17:34 PM Interpretation: Performing Lab: Notes/Report: [facility] , Sodium 136 136-145 mmol/L Potassium [...] Performing Lab: see note ML - [facility] LB Manual Differential Reviewed date:07/28/2024 04:17:34 PM Interpretation: Performing Lab: Notes/Report: [facility] , Segmented Neutrophils % Manual 75.0 [...] 1+ Performing Lab: see note ML - [facility] LB Troponin I High Sensitivity Reviewed date:07/28/2024 04:17:34 PM Interpretation: Performing Lab: Notes/Report: [facility] , Troponin I High Sensitivity 16.5 4.0-51.3 pg/mL CUT-OFF POINTS HAVE BEEN ESTABLISHED BASED ON THE FOURTH UNIVERSAL DEFINITION OF MYOCARDIAL INFARCTION. THE UPPER REFERENCE LIMIT (URL) OF TROPONIN, DEFINED THE 99TH PERCENTILE OF cTnI DISTRIBUTION IN A REFERENCE POPULATION, HAS BEEN CONFIRMED THE DECISION THRESHOLD FOR DC DIAGNOSIS. 99TH PERCENTILE = 51.4 PG/ML NOTE: HIGH-SENSITIVITY TROPONIN ASSAY IS NOT INTENDED TO BE USED IN ISOLATION BUT SHOULD BE INTERPRETED IN CONJUNCTION WITH OTHER DIAGNOSTIC AND CLINICAL INFORMATION. Performing Lab: see note ML - [facility] LB CBC AUTO DIFF Reviewed date:07/31/2024 07:53:46 PM Interpretation: Performing Lab: Notes/Report: [facility] , White Blood Count 8.3 4.0-11.0 [...] Performing Lab: see note ML - [facility] LB PROF CHEM 8 (BAS METB) Reviewed date:07/31/2024 07:53:46 PM Interpretation: Performing Lab: Notes/Report: [facility] , Sodium 139 136-145 mmol/L Potassium 3.5 3.5-5.1 mmol/L Chloride 103 98-107 mmol/L Carbon Dioxide 24.9 21.0-32.0 mmol/L Anion Gap 14.6 Glucose 195 74-106 mg/dL Blood Urea Nitrogen 22.0 7.0-18.0 mg/dL Creatinine 1.59 0.55-1.02 mg/dL Estimated GFR ( Candace 40 >=60 Estimated GFR (Non- Susi 33 >=60 BUN Creatinine Ratio 13.8 Calcium 8.8 8.5-10.1 mg/dL Performing Lab: see note ML - [facility] LB Troponin I High Sensitivity Reviewed date:07/31/2024 07:53:46 PM Interpretation: Performing Lab: Notes/Report: [facility] , Troponin I High Sensitivity 11.1 4.0-51.3 pg/mL CUT-OFF POINTS HAVE BEEN ESTABLISHED BASED ON THE FOURTH UNIVERSAL DEFINITION OF MYOCARDIAL INFARCTION. THE UPPER REFERENCE LIMIT (URL) OF TROPONIN, DEFINED THE 99TH PERCENTILE OF cTnI DISTRIBUTION IN A REFERENCE POPULATION, HAS BEEN CONFIRMED THE DECISION THRESHOLD FOR DC DIAGNOSIS. 99TH PERCENTILE = 51.4 PG/ML NOTE: HIGH-SENSITIVITY TROPONIN ASSAY IS NOT INTENDED TO BE USED IN ISOLATION BUT SHOULD BE INTERPRETED IN CONJUNCTION WITH OTHER DIAGNOSTIC AND CLINICAL INFORMATION. Performing Lab: see note ML - [facility] Troponin I High Sensitivity Reviewed date:07/31/2024 07:53:46 PM Interpretation: Performing Lab: Notes/Report: [facility] , Troponin I High Sensitivity 10.6 4.0-51.3 pg/mL CUT-OFF POINTS HAVE BEEN ESTABLISHED BASED ON THE FOURTH UNIVERSAL DEFINITION OF MYOCARDIAL INFARCTION. THE UPPER REFERENCE LIMIT (URL) OF TROPONIN, DEFINED THE 99TH PERCENTILE OF cTnI DISTRIBUTION IN A REFERENCE POPULATION, HAS BEEN CONFIRMED THE DECISION THRESHOLD FOR DC DIAGNOSIS. 99TH PERCENTILE = 51.4 PG/ML NOTE: HIGH-SENSITIVITY TROPONIN ASSAY IS NOT INTENDED TO BE USED IN ISOLATION BUT SHOULD BE INTERPRETED IN CONJUNCTION WITH OTHER DIAGNOSTIC AND CLINICAL INFORMATION. Performing Lab: see note ML - [facility] LB CBC AUTO DIFF Reviewed date:08/01/2024 10:45:13 PM Interpretation: Performing Lab: Notes/Report: [facility] , White Blood Count 6.6 4.0-11.0 [...] 3/uL Performing Lab: see note ML - [facility] LB MAGNESIUM Reviewed date:08/01/2024 10:45:13 PM Interpretation: Performing Lab: Notes/Report: [facility] , Magnesium 2.0 1.8-2.4 mg/dL Performing Lab: see note ML - [facility] LB PHOSPHORUS Reviewed date:08/01/2024 10:45:13 PM Interpretation: Performing Lab: Notes/Report: [facility] , Phosphorus 2.7 2.6-4.7 mg/dL Performing Lab: see note ML - [facility] LB PROF 14(COMP METB) Reviewed date:08/01/2024 10:45:13 PM Interpretation: Performing Lab: Notes/Report: [facility] , Sodium 139 136-145 mmol/L Potassium [...] 1.0 Performing Lab: see note ML - [facility] Troponin I High Sensitivity Reviewed date:08/01/2024 10:45:13 PM Interpretation: Performing Lab: Notes/Report: [facility] , Troponin I High Sensitivity 13.2 4.0-51.3 pg/mL CUT-OFF POINTS HAVE BEEN ESTABLISHED BASED ON THE FOURTH UNIVERSAL DEFINITION OF MYOCARDIAL INFARCTION. THE UPPER REFERENCE LIMIT (URL) OF TROPONIN, DEFINED THE 99TH PERCENTILE OF cTnI DISTRIBUTION IN A REFERENCE POPULATION, HAS BEEN CONFIRMED THE DECISION THRESHOLD FOR DC DIAGNOSIS. 99TH PERCENTILE = 51.4 PG/ML NOTE: HIGH-SENSITIVITY TROPONIN ASSAY IS NOT INTENDED TO BE USED IN ISOLATION BUT SHOULD BE INTERPRETED IN CONJUNCTION WITH OTHER DIAGNOSTIC AND CLINICAL INFORMATION. Performing Lab: see note ML - [facility] LB Troponin I High Sensitivity Reviewed date:08/01/2024 10:45:13 PM Interpretation: Performing Lab: Notes/Report: [facility] , Troponin I High Sensitivity 14.3 4.0-51.3 pg/mL CUT-OFF POINTS HAVE BEEN ESTABLISHED BASED ON THE FOURTH UNIVERSAL DEFINITION OF MYOCARDIAL INFARCTION. THE UPPER REFERENCE LIMIT (URL) OF TROPONIN, DEFINED THE 99TH PERCENTILE OF cTnI DISTRIBUTION IN A REFERENCE POPULATION, HAS BEEN CONFIRMED THE DECISION THRESHOLD FOR DC DIAGNOSIS. 99TH PERCENTILE = 51.4 PG/ML NOTE: HIGH-SENSITIVITY TROPONIN ASSAY IS NOT INTENDED TO BE USED IN ISOLATION BUT SHOULD BE INTERPRETED IN CONJUNCTION WITH OTHER DIAGNOSTIC AND CLINICAL INFORMATION. Performing Lab: see note ML - [facility] CBC AUTO DIFF Reviewed date:09/17/2024 09:36:04 PM Interpretation: Performing Lab: Notes/Report: [facility] , White Blood Count 6.9 4.0-11.0 [...] Performing Lab: see note ML - [facility] LB PROF CHEM 8 (BAS METB) Reviewed date:09/17/2024 09:36:04 PM Interpretation: Performing Lab: Notes/Report: [facility] , Sodium 144 136-145 mmol/L Potassium [...] Performing Lab: see note ML - [facility] LB Troponin I High Sensitivity Reviewed date:09/17/2024 09:36:04 PM Interpretation: Performing Lab: Notes/Report: [facility] , Troponin I High Sensitivity 9.2 4.0-51.3 pg/mL CUT-OFF POINTS HAVE BEEN ESTABLISHED BASED ON THE FOURTH UNIVERSAL DEFINITION OF MYOCARDIAL INFARCTION. THE UPPER REFERENCE LIMIT (URL) OF TROPONIN, DEFINED THE 99TH PERCENTILE OF cTnI DISTRIBUTION IN A REFERENCE POPULATION, HAS BEEN CONFIRMED THE DECISION THRESHOLD FOR DC DIAGNOSIS. 99TH PERCENTILE = 51.4 PG/ML NOTE: HIGH-SENSITIVITY TROPONIN ASSAY IS NOT INTENDED TO BE USED IN ISOLATION BUT SHOULD BE INTERPRETED IN CONJUNCTION WITH OTHER DIAGNOSTIC AND CLINICAL INFORMATION. Performing Lab: see note ML - [facility] LB CBC AUTO DIFF Reviewed date:09/28/2024 08:19:49 PM Interpretation: Performing Lab: Notes/Report: [facility] , White Blood Count 6.6 4.0-11.0 [...] Performing Lab: see note ML - [facility] LB UA (CLEAN or CATCH) PLANNING COORDINATOR or M ICRO IF IND. Reviewed date:09/28/2024 08:19:49 PM Interpretation: Performing Lab: Notes/Report: [facility] , Color Urine YELLOW YELLOW Clarity Urine CLEAR CLEAR Specific [place] Urine 1.010 1.005-1.025 pH Urine 6.0 5.0-9.0 Protein Urine NEGATIVE NEG/TRACE mg/dL Glucose Urine UA >=1000 NEGATIVE mg/dL Bilirubin Urine NEGATIVE NEGATIVE Ketones Urine NEGATIVE NEGATIVE mg/dL Blood Urine NEGATIVE NEGATIVE Nitrite Urine NEGATIVE NEGATIVE Urobilinogen Urine 0.2 0.2-1.0 EU/dL Leukocyte Esterase Urine NEGATIVE NEGATIVE Urine Microscopic Indicated NO Performing Lab: see note ML - [facility] LB ECG 12 lead Reviewed date:09/30/2024 04:08:40 PM Interpretation: Performing Lab: Notes/Report: Source Facility: [place] [address] Electrocardiograph Report Signed Patient: ABY MADRIGAL MR#: [id number] : 1965 Acct:[id number] Age/Sex: 59 / F ADM Date: 09/28/24 Loc: ER Attending Dr: Ordering Physician: Carla Skinner D.O. 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 Signed By: 09/29/24601 DD/ 28 TD/TT: Pediatric Dermatologist: [place] [address] Electrocardiograph Report Signed Patient: ABY MADRIGAL MR#: [id number] : 1965 Acct:[id number] Age/Sex: 59 / F ADM Date: 09/28/24 Loc: ER Attending Dr: Ordering Physician: Carla Skinner D.O. 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 Signed By: 09/29/24601 DD/ 28 TD/TT: Pediatric Dermatologist: NADIA chest 1V Reviewed date:09/28/2024 08:19:49 PM Interpretation: Performing Lab: Notes/Report: Source Facility: [place] [address] [place] [address] XRay Report Signed Patient: ABY MADRIGAL MR#: [id number] : 1965 Acct:[id number] Age/Sex: 59 / F ADM Date: Loc: ER Attending Dr: Ordering Physician: Carla Skinner D.O. Date of Service: 09/28/24 Procedure(s): XR chest 1V Accession Number(s): [id number] cc: Kendra Moran M.D.; Carla Skinner D.O. [place] [address] Patient Name: ABY MADRIGAL MRN: [facility] [employer]:[id number] date: 1965 Sex: F Assigned Patient Location: ER Current Patient Location: ER Accession/Order Number: [id number] Exam Date: 09/28/2024 12:41 Report Date: 09/28/2024 [...] Signed By: 09/28/24 1307 DD/ 1305 TD/TT: Pediatric Dermatologist: [place] [address] XRay Report Signed Patient: ABY MADRIGAL MR#: [id number] : 1965 Acct:[id number] Age/Sex: 59 / F ADM Date: Loc: ER Attending Dr: Ordering Physician: Carla Skinner D.O. Date of Service: 09/28/24 Procedure(s): XR chest 1V Accession Number(s): [id number] cc: Kendra Moran M.D. ; Carla Skinner D.O. The [address] [address] Patient Name: ABY MADRIGAL MRN: [employer] [employer]:[id number] date: 1965 Sex: F Assigned Patient Location: ER Current Patient Loca tion: ER Accession/Order Numb er: [id number] Exam Date: 12:41 Report Date: 09/28/2024 13:05 [...] Signed By: 09/28/24 1307 DD/ 1305 TD/TT: Pediatric Dermatologist: Troponin I High Sensitivity Reviewed date:11/12/2024 02:22:59 PM Interpretation: Performing Lab: Notes/Report: [facility] , Troponin I High Sensitivity 50.0 4.0-51.3 pg/mL CUT-OFF POINTS HAVE BEEN ESTABLISHED BASED ON THE FOURTH UNIVERSAL DEFINITION OF MYOCARDIAL INFARCTION. THE UPPER REFERENCE LIMIT (URL) OF TROPONIN, DEFINED THE 99TH PERCENTILE OF cTnI DISTRIBUTION IN A REFERENCE POPULATION, HAS BEEN CONFIRMED THE DECISION THRESHOLD FOR DC DIAGNOSIS. 99TH PERCENTILE = 51.4 PG/ML NOTE: HIGH-SENSITIVITY TROPONIN ASSAY IS NOT INTENDED TO BE USED IN ISOLATION BUT SHOULD BE INTERPRETED IN CONJUNCTION WITH OTHER DIAGNOSTIC AND CLINICAL INFORMATION. Performing Lab: see note ML - [facility] LB BNP Reviewed date:11/26/2024 08:40:04 PM Interpretation: Performing Lab: Notes/Report: [facility] , NT Pro B Type Natriuretic Pept 171.0 <=900.0 pg/mL Performing Lab: see note ML - [facility] LB CBC AUTO DIFF Reviewed date:11/26/2024 08:40:04 PM Interpretation: Performing Lab: Notes/Report: [facility] , White Blood Count 6.2 4.0-11.0 [...] Performing Lab: see note ML - [facility] LB MAGNESIUM Reviewed date:11/26/2024 08:40:04 PM Interpretation: Performing Lab: Notes/Report: [facility] , Magnesium 2.1 1.8-2.4 mg/dL Performing Lab: see note ML - [facility] PROF CHEM 8 (BAS METB) Reviewed date:11/26/2024 08:40:04 PM Interpretation: Performing Lab: Notes/Report: [facility] , Sodium 142 136-145 mmol/L Potassium [...] 8.6 8.5-10.1 mg/dL Performing Lab: see note ML - [facility] Troponin I High Sensitivity Reviewed date:11/26/2024 08:40:04 PM Interpretation: Performing Lab: Notes/Report: [facility] , Troponin I High Sensitivity 6.2 4.0-51.3 pg/mL CUT-OFF POINTS HAVE BEEN ESTABLISHED BASED ON THE FOURTH UNIVERSAL DEFINITION OF MYOCARDIAL INFARCTION. THE UPPER REFERENCE LIMIT (URL) OF TROPONIN, DEFINED THE 99TH PERCENTILE OF cTnI DISTRIBUTION IN A REFERENCE POPULATION, HAS BEEN CONFIRMED THE DECISION THRESHOLD FOR DC DIAGNOSIS. 99TH PERCENTILE = 51.4 PG/ML NOTE: HIGH-SENSITIVITY TROPONIN ASSAY IS NOT INTENDED TO BE USED IN ISOLATION BUT SHOULD BE INTERPRETED IN CONJUNCTION WITH OTHER DIAGNOSTIC AND CLINICAL INFORMATION. Performing Lab: see note ML - [facility] LB ECG 12 lead Reviewed date:11/27/2024 08:32:57 PM Interpretation: Performing Lab: Notes/Report: Source Facility: [facility] [place] [address] [place] [address] Electrocardiograph Report Signed Patient: ABY MADRIGAL MR#: [id number] : 1965 Acct:[id number] Age/Sex: 59 / F ADM Date: 11/25/24 Loc: ER Attending Dr: Ordering Physician: Donald Hoskins D.O. 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 Signed By: 11/27/242023 DD/ 1015 TD/TT: Pediatric Dermatologist: [place] [address] Electrocardiograph Report Signed Patient: ABY MADRIGAL MR#: [id number] : 1965 Acct:[id number] Age/Sex: 59 / F ADM Date: 11/25/24 Loc: ER Attending Dr: Ordering Physician: Donald Hoskins D.O. 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 Signed By: 11/27/242023 DD/ 1015 TD/TT: Pediatric Dermatologist: XR chest 1V Reviewed date:11/26/2024 08:40:04 PM Interpretation: Performing Lab: Notes/Report: Source Facility: [place] [address] XRay Report Signed Patient: ABY MADRIGAL MR#: [id number] : 1965 Acct:[id number] Age/Sex: 59 / F ADM Date: 11/25/24 Loc: ER Attending Dr: Ordering Physician: Donald Hoskins D.O. Date of Service: 11/25/24 Procedure(s): XR chest 1V Accession Number(s): [id number] cc: Donald Hoskins D.O.; Kendra Moran M.D. [place] [address] Patient Name: ABY MADRIGAL MRN: [facility]:[id number] date: 1965 Sex: F Assigned Patient Location: ER Current Patient Location: ER Accession/Order Number: [id number] Exam Date: 11/25/2024 10:52 Report Date: 11/25/2024 [...] Dictated By: Emma Emerson M.D. Signed By: 11/25/241129 DD/ 26 TD/TT: Pediatric Dermatologist: [place] [address] XRay Report Signed Patient: ABY MADRIGAL MR#: [id number] : 1965 Acct:[id number] Age/Sex: 59 / F ADM Date: 11/25/24 Loc: ER Attending Dr: Ordering Physician: Donald Hoskins D.O. Date of Service: 11/25/24 Procedure(s): XR chest 1V Accession Number(s): [id number] cc: Donald Hoskins D.O.; Kendra Moran M.D. [place] [address] Patient Name: ABY MADRIGAL MRN: [id number]:[id number] date: 1965 Sex: F Assigned Patient Location: ER Current Patient Loca tion: ER Accession/Order Numb er: [id number] Exam Date: 11/25/2024 10:52 Report Date: 11/25/2024 [...] Dictated By: Meka Emerson M.D. 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 Order Number: [id number] [place] MD: AGUILAR MAN Interpretive Statements Session Date: Electronically Signed On 01-06-2025 8:46:05 EST by AGUILAR MAN Dictated By: Aguilar Man D.O. 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 Order Number: [id number] Reading MD: AGUILAR MAN Interpretive Statements Session Date: Electronically Devora d On 01-06-2025 8:46:05 EST by AGUILAR MAN Dictated By: Aguilar Man D.O. Signed By: 01/06/25 0846 01/06/25 0846 DD/ 1003 TD/TT: Pediatric Dermatologist: BNP Reviewed date:01/31/2025 06:41:07 PM Interpretation: Performing Lab: Notes/Report: [facility] , NT Pro B Type Natriuretic Pept 196.0 <=900.0 pg/mL Performing Lab: see note ML - [facility] LB CBC AUTO DIFF Reviewed date:01/31/2025 06:41:07 PM Interpretation: Performing Lab: Notes/Report: [facility] , White Blood Count 6.5 4.0-11.0 [...] Performing Lab: see note ML - [facility] LB LIPASE Reviewed date:01/31/2025 06:41:07 PM Interpretation: Performing Lab: Notes/Report: [facility] , Lipase 72.0 16.0-77.0 U/L Performing Lab: see note - [facility] LB PROF 14(COMP METB) Reviewed date:01/31/2025 06:41:08 PM Interpretation: Performing Lab: Notes/Report: [facility] , Sodium 142 136-145 mmol/L Potassium [...] Performing Lab: see note ML - [facility] LB Troponin I High Sensitivity Reviewed date:01/31/2025 06:41:08 PM Interpretation: Performing Lab: Notes/Report: [facility] , Troponin I High Sensitivity 9.3 4.0-51.3 pg/mL CUT-OFF POINTS HAVE BEEN ESTABLISHED BASED ON THE FOURTH UNIVERSAL DEFINITION OF MYOCARDIAL INFARCTION. THE UPPER REFERENCE LIMIT (URL) OF TROPONIN, DEFINED THE 99TH PERCENTILE OF cTnI DISTRIBUTION IN A REFERENCE POPULATION, HAS BEEN CONFIRMED THE DECISION THRESHOLD FOR DC DIAGNOSIS. 99TH PERCENTILE = 51.4 PG/ML NOTE: HIGH-SENSITIVITY TROPONIN ASSAY IS NOT INTENDED TO BE USED IN ISOLATION BUT SHOULD BE INTERPRETED IN CONJUNCTION WITH OTHER DIAGNOSTIC AND CLINICAL INFORMATION. Performing Lab: see note ML - [facility] LB ECG 12 lead Reviewed date:01/31/2025 06:41:08 PM Interpretation: Performing Lab: Notes/Report: Source Facility: [facility]-[address] [place] [address] [place] [address] Electrocardiograph Report Signed Patient: ABY MADRIGAL MR#: [id number] : 1965 Acct:[id number] Age/Sex: 59 / F ADM Date: 01/31/25 Loc: ER Attending Dr: Ordering Physician: Kyung Jones D.O. 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 Measurements Intervals Moseley Rate: 69 P: 63 IA: 178 QRS: 47 QRSD: 90 T: 150 QT: 382 QTc: 402 Interpretive Statements 1100 Sinus rhythm [address] depression 4564 Twave abnormality, possible lateral ischemia 9150 abnormal ECG Compared to ECG 11/25/2024 10:15:08 No significant changes Electronically Signed On 01-31-2025 9:30:00 EDT by GOEMZ SPENCE M.D. Dictated By: GOMEZ SPENCE Signed By: 01/31/25 0930 DD/ 0027 TD/TT: Pediatric Dermatologist: [place] [address] Electrocardiograph Report Signed Patient: ABY MADRIGAL MR#: [id number] : 1965 Acct:[id number] Age/Sex: 59 / F ADM Date: 01/31/25 Loc: ER Attending Dr: Ordering Physician: Kyung Jones D.O. 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 Measurements Intervals Moseley Rate: 69 P: 63 IA: 178 QRS: [...] Signed By: 01/31/25 0930 DD/ 0027 TD/TT: Pediatric Dermatologist: Troponin I High Sensitivity Reviewed date:01/31/2025 06:41:07 PM Interpretation: Performing Lab: Notes/Report: [facility] , Troponin I High Sensitivity 8.9 4.0-51.3 pg/mL CUT-OFF POINTS HAVE BEEN ESTABLISHED BASED ON THE FOURTH UNIVERSAL DEFINITION OF MYOCARDIAL INFARCTION. THE UPPER REFERENCE LIMIT (URL) OF TROPONIN, DEFINED THE 99TH PERCENTILE OF cTnI DISTRIBUTION IN A REFERENCE POPULATION, HAS BEEN CONFIRMED THE DECISION THRESHOLD FOR DC DIAGNOSIS. 99TH PERCENTILE = 51.4 PG/ML NOTE: HIGH-SENSITIVITY TROPONIN ASSAY IS NOT INTENDED TO BE USED IN ISOLATION BUT SHOULD BE INTERPRETED IN CONJUNCTION WITH OTHER DIAGNOSTIC AND CLINICAL INFORMATION. Performing Lab: see note ML - [facility] LB ITP Reviewed date:02/18/2025 04:19:26 PM Interpretation: Performing Lab: Notes/Report: Source Facility: [facility]-[address] [place] [address] [place] [address] Cardiac Rehab Report Signed Patient: ABY MADRIGAL MR#: [id number] : 1965 Acct:[id number] Age/Sex: 59 / F ADM Date: 02/14/25 Loc: CR Attending Dr: GOMEZ SPENCE Ordering Physician: GOMEZ SPENCE Date of Service: 02/05/25 Procedure(s): ITP Accession Number(s): [id number] cc: [facility] Test Date: 2025-02-05 Pat Name: ABY MADRIGAL Department: Room: - 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 Order Number: [id number] Reading MD: AGUILAR MAN Interpretive Statements Session Date: Electronically Signed On 02-17-2025 14:29:26 EDT by AGUILAR MAN Dictated By: Aguilar Man D.O. 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 Order Number: [id number] Milton MD: AGUILAR MAN Interpretive Statements Session Date: Electronically Devoar d On 02-17-2025 14:29:26 EDT by AGUILAR MAN Dictated By: Aguilar Man D.O. Signed By: 02/17/25142802/17/25 142 DD/ 1534 TD/TT: Pediatric Dermatologist: JULIANN Reviewed date:02/18/2025 04:19:26 PM Interpretation: Performing Lab: Notes/Report: Source Facility: [place] [address] Cardiac Rehab Report Signed Patient: ABY MADRIGAL MR#: [id number] : 1965 Acct:[id number] Age/Sex: 59 / F ADM Date: 02/14/25 Loc: CR Attending Dr: GOMEZ SPENCE Ordering Physician: Aguilar Man D.O. 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 Signed By: 02/17/25 1430 02/17/25 1430 DD/ 1420 TD/TT: Pediatric Dermatologist: [place] [address] Cardiac Rehab Report Signed Patient: ABY MADRIGAL MR#: [id number] : 1965 Acct:[id number] Age/Sex: 59 / F ADM Date: 02/14/25 Loc: CR Attending Dr: GOMEZ SPENCE Ordering Physician: Aguilar Man D.O. 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 Signed By: 02/17/25 14302/17/25 143 DD/ 19 TD/TT: Pediatric Dermatologist: CBC AUTO DIFF Reviewed date:03/26/2025 08:13:17 PM Interpretation: Performing Lab: Notes/Report: [facility] , White Blood Count 7.3 4.0-11.0 [...] Performing Lab: see note ML - [facility] LB CRP Reviewed date:03/26/2025 08:13:17 PM Interpretation: Performing Lab: Notes/Report: [facility] , C Reactive Protein 0.89 <=0.50 mg/dL Performing Lab: see note ML - [facility] LB LIPASE Reviewed date:03/26/2025 08:13:17 PM Interpretation: Performing Lab: Notes/Report: [facility] , Lipase 36.0 16.0-77.0 U/L Performing Lab: see note ML - [facility] LB PROF 14(COMP METB) Reviewed date:03/26/2025 08:13:17 PM Interpretation: Performing Lab: Notes/Report: [facility] , Sodium 139 136-145 mmol/L Potassium [...] 0.9 Performing Lab: see note ML - [facility] Troponin I High Sensitivity Reviewed date:03/26/2025 08:13:17 PM Interpretation: Performing Lab: Notes/Report: [facility] , Troponin I High Sensitivity 11.9 4.0-51.3 pg/mL CUT-OFF POINTS HAVE BEEN ESTABLISHED BASED ON THE FOURTH UNIVERSAL DEFINITION OF MYOCARDIAL INFARCTION. THE UPPER REFERENCE LIMIT (URL) OF TROPONIN, DEFINED THE 99TH PERCENTILE OF cTnI DISTRIBUTION IN A REFERENCE POPULATION, HAS BEEN CONFIRMED THE DECISION THRESHOLD FOR DC DIAGNOSIS. 99TH PERCENTILE = 51.4 PG/ML NOTE: HIGH-SENSITIVITY TROPONIN ASSAY IS NOT INTENDED TO BE USED IN ISOLATION BUT SHOULD BE INTERPRETED IN CONJUNCTION WITH OTHER DIAGNOSTIC AND CLINICAL INFORMATION. Performing Lab: see note ML - [facility] LB ECG 12 lead Reviewed date:03/26/2025 08:13:17 PM Interpretation: Performing Lab: Notes/Report: Source Facility: [place] [address] [place] [address] Electrocardiograph Report Signed Patient: ABY MADRIGAL MR#: [id number] : 1965 Acct:[id number] Age/Sex: 59 / F ADM Date: 03/25/25 Loc: ER Attending Dr: Ordering Physician: Kyung Jones D.O. 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 Measurements Intervals Moseley Rate: 79 P: 50 IA: 182 QRS: 11 QRSD: 96 T: 181 QT: 350 QTc: 384 Interpretive Statements 1100 Sinus rhythm [address] depression 4564 Twave abnormality, possible lateral ischemia 9150 abnormal ECG Compared to ECG 01/31/2025 00:27:11 No significant changes Electronically Signed On 03-26-2025 7:48:20 EDT by GOMEZ SPENCE M.D. Dictated By: GOMEZ SPENCE Signed By: 03/26/25 0748 DD/ 2221 TD/TT: Pediatric Dermatologist: [place] [address] Electrocardiograph Report Signed Patient: ABY MADRIGAL MR#: [id number] : 1965 Acct:[id number] Age/Sex: 59 / F ADM Date: 03/25/25 Loc: ER Attending Dr: Ordering Physician: Kyung Jones D.O. 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 Measurements Intervals [place]oseley Rate: 79 P: 50 IA: 182 QRS: 11 QRSD: 96 T: 181 QT: 350 QTc: 384 Interpretive Statements 1100 Sinus rhythm [address] depression 4564 Twave abnormali ty, possible lateral ischemia 9150 abnormal ECG Compared to ECG 01/31/2025 00:27:11 No significant changes Electronically Devora d On 03-26-2025 7:48:20 EDT by GOMZE SPENCE M.D. Dictated By: GOMEZ SPENCE Signed By: 03/26/25 0748 DD/ 20 TD/TT: Pediatric Dermatologist: MAGNESIUM Reviewed date:03/26/2025 08:13:17 PM Interpretation: Performing Lab: Notes/Report: [facility] , Magnesium 0.9 1.8-2.4 mg/dL RESULTS CALLED TO NASIR SNYDER RN @BY Mirtha Oconnor at 0155 Performing Lab: see note ML - [facility] LB Troponin I High Sensitivity Reviewed date:03/26/2025 08:13:17 PM Interpretation: Performing Lab: Notes/Report: [facility] , Troponin I High Sensitivity 16.2 4.0-51.3 pg/mL CUT-OFF POINTS HAVE BEEN ESTABLISHED BASED ON THE FOURTH UNIVERSAL DEFINITION OF MYOCARDIAL INFARCTION. THE UPPER REFERENCE LIMIT (URL) OF TROPONIN, DEFINED THE 99TH PERCENTILE OF cTnI DISTRIBUTION IN A REFERENCE POPULATION, HAS BEEN CONFIRMED THE DECISION THRESHOLD FOR DC DIAGNOSIS. 99TH PERCENTILE = 51.4 PG/ML NOTE: HIGH-SENSITIVITY TROPONIN ASSAY IS NOT INTENDED TO BE USED IN ISOLATION BUT SHOULD BE INTERPRETED IN CONJUNCTION WITH OTHER DIAGNOSTIC AND CLINICAL INFORMATION. Performing Lab: see note ML - [facility] LB PROF 14(COMP METB) Reviewed date:03/30/2025 01:10:37 PM Interpretation: Performing Lab: Notes/Report: [facility] , Sodium 141 136-145 mmol/L Potassium [...] 0.9 Performing Lab: see note ML - [facility] LB PROF 14(COMP METB) Reviewed date:04/01/2025 06:27:24 PM Interpretation: Performing Lab: Notes/Report: [facility] , Sodium 141 136-145 mmol/L Potassium [...] Globulin Ratio 1.0 Performing Lab: see note - [facility] UA RANDOM W or MICROSCOPIC Reviewed date:04/02/2025 02:24:30 PM Interpretation: Performing Lab: Notes/Report: [facility] , Color Urine LT. YELLOW YELLOW Clarity Urine CLEAR CLEAR Specific [place] Urine <=1.005 1.005-1.025 pH Urine 6.0 5.0-9.0 [...] Culture Indicated NO Performing Lab: see note - [facility] C. Difficile PCR Reviewed date:04/19/2025 06:15:21 PM Interpretation: Performing Lab: Notes/Report: [facility] , C. Difficile PCR NEGATIVE Performing Lab: see note [facility] E coli Shiga Toxin EIA Reviewed date:04/22/2025 04:45:20 PM Interpretation: Performing Lab: Notes/Report: [facility] , E coli Shiga Toxin EIA See Below For Report E coli Shiga Toxin EIA E coli Shiga Toxin EIA Negative E coli Shiga Toxin EIA E coli Shiga Toxin EIA Performed at: [facility] E coli Shiga Toxin EIA E coli Shiga Toxin EIA [address] [place], [place] [id number] E coli Shiga Toxin EIA E coli Shiga Toxin EIA Transplant Worker: Levar Romeo PhD, Phone: [phone] E coli Shiga Toxin EIA Performing Lab: see note - [facility] LB SEE REPORT - Service Line Coordinator Id information not found for OBX-specific newscast producer legend Campylobacter Culture Reviewed date:04/24/2025 04:35:14 PM Interpretation: Performing Lab: Notes/Report: [facility] , Campylobacter Culture See Below For Report Campylobacter Culture No Campylobacter species isolated. Performing Lab: see note - [facility] LB LIPASE Reviewed date:05/09/2025 05:41:53 PM Interpretation: Performing Lab: Notes/Report: [facility] , Lipase 33.0 16.0-77.0 U/L Performing Lab: see note - [facility] PROF 14(COMP METB) Reviewed date:05/09/2025 05:41:53 PM Interpretation: Performing Lab: Notes/Report: [facility] , Sodium 144 136-145 mmol/L Potassium 4.2 3.5-5.1 mmol/L Chloride 105 98-107 mmol/L Carbon Dioxide 27.8 21.0-32.0 mmol/L Anion Gap 15.4 Glucose 120 74-106 mg/dL Blood Urea Nitrogen 15.0 7.0-18.0 mg/dL Creatinine 1.02 0.55-1.02 mg/dL Estimated GFR ( Candace >60 >=60 mL/min/1.73m 2 Estimated GFR (Non- Susi 55 >=60 mL/min/1.73m 2 BUN Creatinine Ratio 14.7 Calcium 9.3 8.5-10.1 mg/dL Bilirubin Total 0.4 0.2-1.0 mg/dL Aspartate Amino Transferase 26 15-37 U/L Alanine Aminotransferase 39 14-59 U/L Alkaline Phosphatase 70 46-116 U/L Total Protein 7.1 6.4-8.2 g/dL Albumin Level 3.7 3.4-5.0 g/dL Globulin 3.4 Albumin Globulin Ratio 1.1 Performing Lab: see note ML - [facility] Troponin I High Sensitivity Reviewed date:05/09/2025 05:41:53 PM Interpretation: Performing Lab: Notes/Report: [facility] , Troponin I High Sensitivity 6.4 4.0-51.3 pg/mL CUT-OFF POINTS HAVE BEEN ESTABLISHED BASED ON THE FOURTH UNIVERSAL DEFINITION OF MYOCARDIAL INFARCTION. THE UPPER REFERENCE LIMIT (URL) OF TROPONIN, DEFINED THE 99TH PERCENTILE OF cTnI DISTRIBUTION IN A REFERENCE POPULATION, HAS BEEN CONFIRMED THE DECISION THRESHOLD FOR DC DIAGNOSIS. 99TH PERCENTILE = 51.4 PG/ML NOTE: HIGH-SENSITIVITY TROPONIN ASSAY IS NOT INTENDED TO BE USED IN ISOLATION BUT SHOULD BE INTERPRETED IN CONJUNCTION WITH OTHER DIAGNOSTIC AND CLINICAL INFORMATION. Performing Lab: see note ML - [facility] LB ECG 12 lead Reviewed date:05/09/2025 09:12:38 PM Interpretation: Performing Lab: Notes/Report: Source Facility: [facility]-[address] [place] [address] [place] [address] Electrocardiograph Report Signed Patient: ABY MADRIGAL MR#: [id number] : 1965 Acct:[id number] Age/Sex: 59 / F ADM Date: 05/09/25 Loc: ER Attending Dr: Ordering Physician: Marcell Wren Date of Service: 05/09/25 Procedure(s): ECG 12 lead Accession Number(s): [id number] cc: [facility] Test Date: 2025-05-09 Pat Name: ABY MADRIGAL Department: Room: - 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 Measurements Intervals Moseley Rate: 60 P: 50 IA: 186 QRS: 20 QRSD: 88 T: 104 QT: 420 QTc: 420 Interpretive Statements 1100 Sinus rhythm 4564 Twave abnormality, possible lateral ischemia 9150 abnormal ECG Compared to ECG 03/25/2025 22:21:42 ST (T wave) deviation no longer present Possible ischemia still present Electronically Signed On 05-09-2025 21:06:32 EDT by GOMEZ SPENCE M.D. 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 Measurements Intervals Moseley Rate: 60 P: 50 IA: 186 QRS: 20 QRSD: 88 T: 104 QT: 420 QTc: 420 Interpretive Statements 1100 Sinus rhythm 4564 Twave abnormali ty, possible lateral ischemia 9150 abnormal ECG Compared to ECG 03/25/2025 22:21:42 ST (T wave) deviatio n no longer present Possible ischemia st ill present Electronically Devora d On 05-09-2025 21:06:32 EDT by GOMEZ SPENCE M.D. Dictated By: GOMEZ SPENCE Signed By: 05/09/252105 DD/ 1539 TD/TT: Pediatric Dermatologist: XR chest 1V Reviewed date:05/09/2025 05:41:53 PM Interpretation: Performing Lab: Notes/Report: Source Facility: [place] [address] XRay Report Signed Patient: ABY MADRIGAL MR#: [id number] : 1965 Acct:[id number] Age/Sex: 59 / F ADM Date: 05/09/25 Loc: ER Attending Dr: Ordering Physician: Marcell Wren Date of Service: 05/09/25 Procedure(s): XR chest 1V Accession Number(s): [id number] cc: Kendra Moran M.D.; Marcell Wren [place] [id number] Patient Name: ABY MADRIGAL MRN: [id number] date: 1965 Sex: F Assigned Patient Location: ER Current Patient Location: ER Accession/Order Number: [id number] Exam Date: 05/09/2025 16:03 Report Date: 05/09/2025 16:04 At the request of: MARCELL WREN MD Procedure: XR chest 1V Plain film chest Single view HISTORY: Chest pain. Shortness of breath COMPARISON: 01/31/2025 FINDINGS: SUPPORT DEVICES: None POSTSURGICAL CHANGES: None HEART: Within normal limits PULMONARY BERNARDA: Within normal limits MEDIASTINUM: Unremarkable LUNGS AND PLEURA: No acute lung process, pleural effusion or pneumothorax identified. BONY STRUCTURES: Intact ADDITIONAL FINDINGS None XR/XR chest 1V IMPRESSION: No acute process. Impression dictated by: Marcell White M.D. 05/09/2025 4:04 PM Dictation Location: [place] [address] Electronically authenticated by: [id number] Y Date: 05/09/2025 16:04 Dictated By: Marcell White D.O. Signed By: 05/09/256 DD/ 03 TD/TT: Pediatric Dermatologist: [place] [address] XRay Report Signed Patient: ABY MADRIGAL MR#: [id number] : 1965 Acct:[id number] Age/Sex: 59 / F ADM Date: 05/09/25 Loc: ER Attending Dr: Ordering Physician: Marcell Wren Date of Service: 05/09/25 Procedure(s): XR chest 1V Accession Number(s): [id number] cc: Kendra Moran M.D. ; Marcell Wren [place] [id number] Patient Name: ABY MADRIGAL MRN: [id number] date: 1965 Sex: F Assigned Patient Location: ER Current Patient Loca tion: ER Accession/Order Numb er: [id number] Exam Date: 05/09/2025 16:03 Report Date: 05/09/2025 16:04 At the request of: MARCELL WREN MD Procedure: XR chest 1V Plain film chest Sin gle view HISTORY: Chest pain. Shortness of breath COMPARISON: 01/31/2025 FINDINGS: SUPPORT DEVICES: None POSTSURGICAL CHANGES : None HEART: Within normal limits PULMONARY BERNARDA: With in normal limits MEDIASTINUM: Unremarkable LUNGS AND PLEURA: No acute lung process, pleural effusion or pneumothorax identified. BONY STRUCTURES: Intact ADDITIONAL FINDINGS None X R/XR chest 1V IMPRESSION: No acute process. Impression dictated by: Marcell White M.D. 05/09/2025 4:04 PM Dictation Location: [place] [address] Electronically authenticated by: [id number] Y Date: 05/09/2025 16:04 Dictated By: Remington White D.O. Signed By: 05/09/25 1606 DD/ 1604 TD/TT: Pediatric Dermatologist: Troponin I High Sensitivity Reviewed date:05/09/2025 08:30:26 PM Interpretation: Performing Lab: Notes/Report: [facility] , Troponin I High Sensitivity 7.5 4.0-51.3 pg/mL CUT-OFF POINTS HAVE BEEN ESTABLISHED BASED ON THE FOURTH UNIVERSAL DEFINITION OF MYOCARDIAL INFARCTION. THE UPPER REFERENCE LIMIT (URL) OF TROPONIN, DEFINED THE 99TH PERCENTILE OF cTnI DISTRIBUTION IN A REFERENCE POPULATION, HAS BEEN CONFIRMED THE DECISION THRESHOLD FOR DC DIAGNOSIS. 99TH PERCENTILE = 51.4 PG/ML NOTE: HIGH-SENSITIVITY TROPONIN ASSAY IS NOT INTENDED TO BE USED IN ISOLATION BUT SHOULD BE INTERPRETED IN CONJUNCTION WITH OTHER DIAGNOSTIC AND CLINICAL INFORMATION. Performing Lab: see note ML - [facility] LB Troponin I High Sensitivity Reviewed date:05/09/2025 09:12:38 PM Interpretation: Performing Lab: Notes/Report: [facility] , Troponin I High Sensitivity 4.6 4.0-51.3 pg/mL CUT-OFF POINTS HAVE BEEN ESTABLISHED BASED ON THE FOURTH UNIVERSAL DEFINITION OF MYOCARDIAL INFARCTION. THE UPPER REFERENCE LIMIT (URL) OF TROPONIN, DEFINED THE 99TH PERCENTILE OF cTnI DISTRIBUTION IN A REFERENCE POPULATION, HAS BEEN CONFIRMED THE DECISION THRESHOLD FOR DC DIAGNOSIS. 99TH PERCENTILE = 51.4 PG/ML NOTE: HIGH-SENSITIVITY TROPONIN ASSAY IS NOT INTENDED TO BE USED IN ISOLATION BUT SHOULD BE INTERPRETED IN CONJUNCTION WITH OTHER DIAGNOSTIC AND CLINICAL INFORMATION. Performing Lab: see note ML - [facility] LB ECG 12 lead Reviewed date:05/10/2025 07:06:51 PM Interpretation: Performing Lab: Notes/Report: Source Facility: [facility]-[address] [place] [address] [place] [address] Electrocardiograph Report Signed Patient: ABY MADRIGAL MR#: [id number] : 1965 Acct:[id number] Age/Sex: 59 / F ADM Date: 05/09/25 Loc: MS 217-[address]: Kendra Moran M.D. 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 Measurements Intervals Moseley Rate: 60 P: 47 IA: 178 QRS: 15 QRSD: 86 T: 109 QT: 424 QTc: 424 Interpretive Statements 1100 Sinus rhythm 4564 Twave abnormality, possible lateral ischemia 5211 Minimal voltage criteria for LVH, may be normal variant 9150 abnormal ECG Compared to ECG 05/09/2025 15:39:44 No significant changes Electronically Signed On 05-10-2025 17:47:23 EDT by GOMEZ SPENCE M.D. Dictated By: GOMEZ SPENCE Signed By: 05/10/25174605/10/251746 DD/ 1557 TD/TT: Pediatric Dermatologist: [place] [address] Electrocardiograph Report Signed Patient: ABY MADRIGAL MR#: [id number] : 1965 Acct:[id number] Age/Sex: 59 / F ADM Date: 05/09/25 Loc: MS 217-[address]: Zhanna Moran M.D. 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 Measurements Intervals Moseley Rate: 60 P: 47 IA: 178 QRS: 15 QRSD: 86 T: 109 QT: 424 QTc: 424 Interpretive Statements 1100 Sinus rhythm 4564 Twave abnormali ty, possible lateral ischemia 5211 Minimal voltage criteria for LVH, may be normal variant 9150 abnormal ECG Compared to ECG 05/09/2025 15:39:44 No significant changes Electronically Devora d On 05-10-2025 17:47:23 EDT by GOMEZ SPENCE M.D. Dictated By: GOMEZ SPENCE Signed By: 05/10/25 17405/10/251746 DD/ 155 TD/TT: Pediatric Dermatologist: BNP Reviewed date:05/10/2025 08:41:08 AM Interpretation: Performing Lab: Notes/Report: Comment From blood this am if possible [facility] , NT Pro B Type Natriuretic Pept 196.0 <=900.0 pg/mL Performing Lab: see note ML - [facility] LB CBC AUTO DIFF Reviewed date:05/10/2025 08:41:08 AM Interpretation: Performing Lab: Notes/Report: [facility] , White Blood Count 4.9 4.0-11.0 10 3/uL Red Blood Count 4.23 4.20-5.40 10 6/uL Hemoglobin 11.2 12.0-16.0 g/dL Hematocrit 35.1 36.0-48.0 % Mean Corpuscular Volume 83.0 81.0-99.0 fL Mean Corpuscular Hemoglobin 26.5 26.7-34.0 pg Mean Corpuscular HGB Conc 31.9 29.9-35.2 g/dL Red Cell Distribution Width 15.8 11.0-15.0 % Platelet Count 191 150-450 10 3/uL Mean Platelet Volume 10.1 9.5-13.5 fL Neutrophils Percent Auto 48.9 43.0-75.0 % Lymphocytes Percent Auto 40.2 20.5-60.0 % Monocytes Percent Auto 6.8 1.7-12.0 % Eosinophils Percent Auto 3.1 0.9-7.0 % Basophils Percent Auto 0.8 0.2-2.0 % Immature Granulocytes Pct Auto 0.2 0.0-0.5 % Neutrophils Absolute Auto 2.4 1.4-6.5 10 3/uL Lymphocytes Absolute Auto 2.0 1.2-3.8 10 3/uL Monocytes Absolute Auto 0.3 0.3-0.8 10 3/uL Eosinophils Absolute Auto 0.2 0.0-0.7 10 3/uL Basophils Absolute Auto 0.0 0.0-0.1 10 3/uL Immature Granulocytes Abs Auto 0.01 0.00-0.03 10 3/uL Performing Lab: see note ML - [facility] LB MAGNESIUM Reviewed date:05/10/2025 08:41:08 AM Interpretation: Performing Lab: Notes/Report: [facility] , Magnesium 2.1 1.8-2.4 mg/dL Performing Lab: see note ML - [facility] LB PROF 14(COMP METB) Reviewed date:05/10/2025 08:41:08 AM Interpretation: Performing Lab: Notes/Report: [facility] , Sodium 145 136-145 mmol/L Potassium 3.7 3.5-5.1 mmol/L Chloride 108 98-107 mmol/L Carbon Dioxide 27.7 21.0-32.0 mmol/L Anion Gap 13.0 Glucose 100 74-106 mg/dL Blood Urea Nitrogen 19.0 7.0-18.0 mg/dL Creatinine 0.89 0.55-1.02 mg/dL Estimated GFR ( Candace >60 >=60 mL/min/1.73m 2 Estimated GFR (Non- Susi >60 >=60 mL/min/1.73m 2 BUN Creatinine Ratio 21.3 Calcium 9.1 8.5-10.1 mg/dL Bilirubin Total 0.4 0.2-1.0 mg/dL Aspartate Amino Transferase 18 15-37 U/L Alanine Aminotransferase 33 14-59 U/L Alkaline Phosphatase 60 46-116 U/L Total Protein 6.2 6.4-8.2 g/dL Albumin Level 3.3 3.4-5.0 g/dL Globulin 2.9 Albumin Globulin Ratio 1.1 Performing Lab: see note ML - [facility] LB Troponin I High Sensitivity Reviewed date:05/10/2025 08:41:09 AM Interpretation: Performing Lab: Notes/Report: [facility] , Troponin I High Sensitivity 10.0 4.0-51.3 pg/mL CUT-OFF POINTS HAVE BEEN ESTABLISHED BASED ON THE FOURTH UNIVERSAL DEFINITION OF MYOCARDIAL INFARCTION. THE UPPER REFERENCE LIMIT (URL) OF TROPONIN, DEFINED THE 99TH PERCENTILE OF cTnI DISTRIBUTION IN A REFERENCE POPULATION, HAS BEEN CONFIRMED THE DECISION THRESHOLD FOR DC DIAGNOSIS. 99TH PERCENTILE = 51.4 PG/ML NOTE: HIGH-SENSITIVITY TROPONIN ASSAY IS NOT INTENDED TO BE USED IN ISOLATION BUT SHOULD BE INTERPRETED IN CONJUNCTION WITH OTHER DIAGNOSTIC AND CLINICAL INFORMATION. Performing Lab: see note ML - [facility] Troponin I High Sensitivity Reviewed date:05/10/2025 07:06:51 PM Interpretation: Performing Lab: Notes/Report: [facility] , Troponin I High Sensitivity 10.2 4.0-51.3 pg/mL CUT-OFF POINTS HAVE BEEN ESTABLISHED BASED ON THE FOURTH UNIVERSAL DEFINITION OF MYOCARDIAL INFARCTION. THE UPPER REFERENCE LIMIT (URL) OF TROPONIN, DEFINED THE 99TH PERCENTILE OF cTnI DISTRIBUTION IN A REFERENCE POPULATION, HAS BEEN CONFIRMED THE DECISION THRESHOLD FOR DC DIAGNOSIS. 99TH PERCENTILE = 51.4 PG/ML NOTE: HIGH-SENSITIVITY TROPONIN ASSAY IS NOT INTENDED TO BE USED IN ISOLATION BUT SHOULD BE INTERPRETED IN CONJUNCTION WITH OTHER DIAGNOSTIC AND CLINICAL INFORMATION. Performing Lab: see note - [facility] CA echo doppler complete Reviewed date:05/12/2025 01:44:18 PM Interpretation: Performing Lab: Notes/Report: Source Facility: [facility]-[address] [place] [address] [place] [address] Cardiology Report Signed Patient: ABY MADRIGAL MR#: [id number] : 1965 Acct:[id number] Age/Sex: 59 / F ADM Date: 05/09/25 Loc: MS 217-[address]: Kendra Moran M.D. Ordering Physician: Kendra Moran M.D. Date of Service: 05/10/25 Procedure(s): CA echo doppler complete Accession Number(s): [id number] cc: Kendra Moran M.D. Patient Name: ABY MADRIGAL MR#: [id number] : 1965 Exam Date: 05/10/2025 Ordering Doctor: DR KENDRA MORAN . ECHOCARDIOGRAM REPORT PROCEDURE: CA ECHO DOPPLER COMPLETE INDICATIONS: Dyspnea, cardiac stent in LAD, NSTEMI, diabetes, hypertension COMPARISON: None. DESCRIPTION: COMPLETE ECHOCARDIOGRAM Real-time transthoracic echocardiography with 2D, M-mode, spectral and color flow Doppler performed. QUALITY: Technical quality was good. LEFT VENTRICLE: Normal chamber size. Severely thickened septal wall (1.6 cm). Hyperdynamic systolic function. There is increased intracavitary gradient measuring at 34 mmHg with Valsalva. No evidence of systolic anterior motion of the anterior mitral valve leaflet. LV EF: Hyperdynamic left ventricular ejection fraction, (>75%). DIASTOLIC: Diastolic function is indeterminate. ATRIAL SEPTUM: Visually appears intact. LEFT ATRIUM: Mild dilatation. RIGHT ATRIUM: Normal chamber size. RIGHT VENTRICLE: Normal chamber size. Normal right ventricular systolic function. TRICUSPID VALVE: Normal mobility and thickness. No stenosis with trivial regurgitation. No evidence of pulmonary hypertension. RVSP 34 mmHg MITRAL VALVE: Normal mobility and thickness. No evidence of mitral valve stenosis. There is no mitral annular calcification. Trivial mitral regurgitation. AORTIC VALVE: Normal trileaflet appearance. No visible sclerosis. Normal leaflet mobility. No evidence of aortic valve stenosis. No aortic regurgitation. AORTIC ROOT: Normal diameter and appearance, measuring 3.0 cm. PULMONIC VALVE: Normal thickness and mobility. No stenosis. Trivial regurgitation. PERICARDIUM: No evidence of pericardial effusion. IVC: Collapses with inspiration. IVC is normal in size. PLEURA: CONCLUSION: 1. Left ventricular hypertrophy with significant hypertrophy of the basal septum up to 1.6 cm. Hyperdynamic left ventricular systolic function with increased intracavitary gradients up to 34 mmHg with Valsalva maneuver. No evidence of systolic anterior motion of the anterior mitral valve leaflet. 2. Normal right ventricular size and systolic function. 3. No significant valvular dysfunction. 4. Normal right-sided pressures. Adult Echocardiography Procedure Report Left Ventricle LVEDD (3.7 - 5.6 cm): 4.34 cm LVESD (2.2 - 4.0 cm): 2.35 cm LVIVS thickness (0.6 - 1.2 cm): 1.60 cm LVPW thickness (0.5 - 1.0 cm): 0.92 cm e': 0.08 m/s E - e': 6.56 LVOT Max Gradient: 6.02 mm[Hg] LVOT Area (cm2): 1.23 m/s Peak Velocity (LVOT): 1.23 m/s Mean Velocity (LVOT): 0.82 m/s LVOT Diameter 2.36 cm Left Atrium LA Volume Index (2D A2C): 36.66 ml/m2 Left Atrium Systolic Dimension: 3.91 cm Mitral Valve MV E to A Ratio: 0.67 Mitral Valve A-Wave Peak Velocity: 0.81 m/s Mitral Valve E-Wave Peak Velocity: 0.54 m/s Right Ventricle Aorta AO Root Diam: 3.00 cm Aortic Valve AoV Area (Peak David): 2.61 cm2, 2.61 cm2 AoV Area (VTI): 2.96 cm2, 2.96 cm2 Peak Velocity(Antegrade Flow): 2.05 m/s Peak Gradient(Antegrade Flow): 16.85 mm[Hg] Mean Velocity(Antegrade Flow): 1.29 m/s Mean Gradient(Antegrade Flow): 7.90 mm[Hg] Velocity Time Integral: 47.92 cm Tricuspid Valve Peak Velocity (Regurgitant Flow): 2.80 m/s Pulmonic Valve Peak Gradient: 4.79 mm[Hg], 5.03 mm[Hg] Right Atrium Right Atrium Systolic Pressure: 28.09 ml, 28.09 ml Dictated by: Gomez Spence M.D. on 05/11/2025 at 08:10 Approved by: Gomez Spence M.D. on 05/11/2025 at 08:16 Dictated By: GOMEZ SPENCE Signed By: 05/11/25817 DD/ 5 TD/TT: Pediatric Dermatologist: [place] [address] Cardiology Report Signed Patient: ABY MADRIGAL MR#: [id number] : 1965 Acct:[id number] Age/Sex: 59 / F ADM Date: 05/09/25 Loc: MS 217-[address]: Zhanna Moran M.D. Ordering Physician: Kendra Moran M.D. Date of Service: 05/10/25 Procedure(s): CA ech o doppler complete Accession Number(s): [id number] cc: Kendra Moran M.D. Patient Name: ABY MADRIGAL MR#: [id number] : 1965 Exam Date: 05/10/2025 Ordering Doctor: DR KENDRA MORAN . ECHOCARDIOGRAM REPORT PROCEDURE: CA ECHO DOPPLER COMPLETE INDICATIONS: Dyspnea , cardiac stent in LAD, NSTEMI, diabetes, hypertension COMPARISON: None. DESCRIPTION: COMPLET E ECHOCARDIOGRAM Real-time transthoracic echocardiography wit h 2D, M-mode, spectral and color flow Doppler performed. QUALITY: Technical quality was good. LEFT VENTRICLE: Norm al chamber size. Severely thickened septal wall (1.6 cm). Hyperdynam ic systolic function. There is increased intracavitary gradient measuring a t 34 mmHg with Valsalva. No evidence of systolic anterior motion of the anteri or mitral valve leaflet. LV EF: Hyperdynamic left ventricular ejection fraction, (>75%). DIASTOLIC: Diastolic function is indeterminate. ATRIAL SEPTUM: Visua lly appears intact. LEFT ATRIUM: Mild dilatation. RIGHT ATRIUM: Normal chamber size. RIGHT VENTRICLE: Nor mal chamber size. Normal right ventricular systolic function. TRICUSPID VALVE: Nor mal mobility and thickness. No stenosis with trivial regurgitation. No evidence of pulmonary hypertension. RVSP 34 mmHg MITRAL VALVE: Normal mobility and thickness. No evidence of mitral valve stenosis. There is n o mitral annular calcification. Trivial mitral regurgitation. AORTIC VALVE: Normal trileaflet appearance. No visible sclerosis. Normal leaflet mobility. No evidence of aortic valve stenosis. No aortic regurgitation. AORTIC ROOT: Normal diameter and appearance, measuring 3.0 cm. PULMONIC VALVE: Norm al thickness and mobility. No stenosis. Trivial regurgitation. PERICARDIUM: No evid ence of pericardial effusion. IVC: Collapses with inspiration. IVC is normal in size. PLEURA: CONCLUSION: 1. Left ventricular hypertrophy with significant hypertrophy of the basal septum up to 1.6 cm. Hyperdynamic left ventricular systolic function with increased intracavit jose gradients up to 34 mmHg with Valsalva maneuver. No evidence of systolic anterior motion of the anterior mitral valve leaflet. 2. Normal right ventricular size and systolic function. 3. No significant valvular dysfunction. 4. Normal right-side d pressures. Adult Echocardiograp hy Procedure Report Left Ventricle LVEDD (3.7 - 5.6 cm) : 4.34 cm LVESD (2.2 - 4.0 cm) : 2.35 cm LVIVS thickness (0.6 - 1.2 cm): 1.60 cm LVPW thickness (0.5 - 1.0 cm): 0.92 cm e': 0.08 m/s E - e': 6.56 LVOT Max Gradient: 6 .02 mm[Hg] LVOT Area (cm2): 1.23 m/s Peak Velocity (LVOT) : 1.23 m/s Mean Velocity (LVOT) : 0.82 m/s LVOT Diameter 2.36 cm Left Atrium LA Volume Index (2D A2C): 36.66 ml/m2 Left Atrium Systolic Dimension: 3.91 cm Mitral Valve MV E to A Ratio: 0.67 Mitral Valve A-Wave Peak Velocity: 0.81 m/s Mitral Valve E-Wave Peak Velocity: 0.54 m/s Right Ventricle Aorta AO Root Diam: 3.00 cm Aortic Valve AoV Area (Peak David): 2.61 cm2, 2.61 cm2 AoV Area (VTI): 2.96 cm2, 2.96 cm2 Peak Velocity(Antegr fausto Flow): 2.05 m/s Peak Gradient(Antegr fausto Flow): 16.85 mm[Hg] Mean Velocity(Antegr fausto Flow): 1.29 m/s Mean Gradient(Antegr fausto Flow): 7.90 mm[Hg] Velocity Time Integr al: 47.92 cm Tricuspid Valve Peak Velocity (Regurgitant Flow): 2.80 m/s Pulmonic Valve Peak Gradient: 4.79 mm[Hg], 5.03 mm[Hg] Right Atrium Right Atrium Systoli c Pressure: 28.09 ml, 28.09 ml Dictated by: Gomez Spence M.D. on 05/11/2025 at 08:10 Approved by: Gomez Spence M.D. on 05/11/2025 at 08:16 Dictated By: GOMEZ SPENCE Signed By: 05/11/2518 DD/ 5 TD/TT: Pediatric Dermatologist: MR ross PAZ wo con Reviewed date:05/14/2025 08:22:33 PM Interpretation: Performing Lab: Notes/Report: Source Facility: [facility]-[address] [place] [address] Magnetic Resonance Report Signed Patient: ABY MADRIGAL MR#: [id number] : 1965 Acct:[id number] Age/Sex: 59 / F ADM Date: 05/14/25 Loc: MRI Attending Dr: Kendra Moran M.D. Ordering Physician: Kendra Moran M.D. Date of Service: 05/14/25 Procedure(s): MR knee LT wo con Accession Number(s): [id number] cc: Kendra Moran M.D. [place] [address] Patient Name: ABY MADRIGAL MRN: [id number]:[id number] date: 1965 Sex: F Assigned Patient Location: MRI Current Patient Location: MRI Accession/Order Number: [id number] Exam Date: 05/14/2025 16:44 Report Date: 05/14/2025 16:51 At the request of: KENDRA MORAN MD Procedure: MR knee LT wo con MR knee LT wo con 05/14/2025 2:08 PM SIGNS AND SYMPTOMS: Internal Knee Derangement, acute left knee pain PROTOCOL: Multiplanar multisequence MR images of the left knee without IV contrast COMPARISON: None. FINDINGS: Fluid: There is a moderate joint effusion. A Alexandre's cyst is present measuring 3.9 x 0.9 x 1.3 cm. Medial compartment: Medial meniscus: Intact. Medial collateral ligament: Intact. Medial femoral condyle cartilage: There is partial thickness chondromalacia with mild subchondral edema. Medial tibial plateau cartilage: There is full-thickness chondromalacia with subchondral edema. Lateral compartment: Lateral meniscus: Intact. Lateral collateral ligament: Intact. Lateral femoral condyle cartilage: There is partial thickness chondromalacia. Lateral tibial plateau cartilage: There is partial thickness chondromalacia. Posterolateral corner: Popliteus tendon: Intact. Popliteofibular ligament: Intact. Proximal tibiofibular joint: Intact. Anterior compartment: Alignment: Normal. Quadriceps tendon: Intact. Patellar tendon: Intact. Retinaculum: Medial intact. Lateral intact. Patellar cartilage: There is full thickness chondromalacia along the lateral articular facet with mild subchondral cystic change. Trochlea: Preserved. . Plica: None. Hoffa fat pad: Normal. Intercondylar compartment: Anterior cruciate ligament: Intact. Posterior cruciate ligament: Intact. Bones (other than subarticular marrow): Normal. Muscles: Normal. Vessels: Normal. Nerves: Normal. 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 Lesser degrees of degenerative changes are noted in the weightbearing and patellofemoral joint spaces as above. There is a moderate joint effusion. A Alexandre's cyst is present measuring 3.9 x 0.9 x 1.3 cm. The knee is otherwise structurally intact. Impression dictated by: Jarocho Parada M.D. 05/14/2025 4:51 PM Dictation Location: [place] [address] Electronically authenticated by: [id number] Y Date: 05/14/2025 16:51 Dictated By: Jarocho Parada M.D. Signed By: 05/14/251653 DD/ 50 TD/TT: Pediatric Dermatologist: [place] [address] Magnetic Resonance Report Signed Patient: ABY MADRIGAL MR#: [id number] : 1965 Acct:[id number] Age/Sex: 59 / F ADM Date: 05/14/25 Loc: MRI Attending Dr: Zhanna Moran M.D. Ordering Physician: Kendra Moran M.D. Date of Service: 05/14/25 Procedure(s): MR ponce e LT wo con Accession Number(s): [id number] cc: Kendra Moran M.D. [place] [address] Patient Name: ABY MADRIGAL MRN: TBH:[id number] date: 1965 Sex: F Assigned Patient Location: MRI Current Patient Loca tion: MRI Accession/Order Numb er: [id number] Exam Date: 05/14/2025 16:44 Report Date: 05/14/2025 16:51 At the request of: KENDRA MORAN MD Procedure: MR knee L T wo con MR knee LT wo con 05/14/2025 2:08 PM SIGNS AND SYMPTOMS: Internal Knee Derangement, acute left knee pain PROTOCOL: Multiplana r multisequence MR images of the left knee without IV contrast COMPARISON: None. FINDINGS: Fluid: There is a moderate joint effusion. A Alexandre's cyst is present measuring 3.9 x 0.9 x 1.3 cm. Medial compartment: Medial meniscus: Intact. Medial collateral ligament: Intact. Medial femoral condy le cartilage: There is partial thickness chondromalacia with mild subchondra l edema. Medial tibial platea u cartilage: There is full-thickness chondromalacia with subchondral edema. Lateral compartment: Lateral meniscus: Intact. Lateral collateral ligament: Intact. Lateral femoral cond yle cartilage: There is partial thickness chondromalacia. Lateral tibial plate au cartilage: There is partial thickness chondromalacia. Posterolateral corner: Popliteus tendon: Intact. Popliteofibular liga ment: Intact. Proximal tibiofibula r joint: Intact. Anterior compartment: Alignment: Normal. Quadriceps tendon: Intact. Patellar tendon: Intact. Retinaculum: Medial intact. Lateral intact. Patellar cartilage: There is full thickness chondromalacia along the lateral articular facet with mild subchondral cystic change. Trochlea: Preserved. . Plica: None. Hoffa fat pad: Normal. Intercondylar compartment: Anterior cruciate ligament: Intact. Posterior cruciate ligament: Intact. Bones (other than subarticular marrow): Normal. Muscles: Normal. Vessels: Normal. Nerves: Normal. M R/MR knee LT wo con IMPRESSION: There is full thickn ess chondromalacia of the medial tibial plateau with mild subchondral edema. Lesser degrees of degenerative changes are noted in the weightbearing and patellofemoral joint spaces as above. There is a moderate joint effusion. A Alexandre's cyst is present measuring 3.9 x 0.9 x 1.3 cm. The knee is otherwis e structurally intact. Impression dictated by: Jarocho Parada M.D. 05/14/2025 4:51 PM Dictation Location: [place] [address] Electronically authenticated by: [id number] Y Date: 05/14/2025 16:51 Dictated By: Jarocho Parada M.D. Signed By: 05/14/251653 DD/ 50 TD/TT: Pediatric Dermatologist: PROF Romano(COMP METB) Reviewed date:05/20/2025 03:18:13 PM Interpretation: Performing Lab: Notes/Report: [facility] , Sodium 144 136-145 mmol/L Potassium 3.7 3.5-5.1 mmol/L Chloride 107 98-107 mmol/L Carbon Dioxide 27.6 21.0-32.0 mmol/L Anion Gap 13.1 Glucose 108 74-106 mg/dL Blood Urea Nitrogen 24.0 7.0-18.0 mg/dL Creatinine 0.98 0.55-1.02 mg/dL Estimated GFR ( Candace >60 >=60 mL/min/1.73m 2 Estimated GFR (Non- Susi 58 >=60 mL/min/1.73m 2 BUN Creatinine Ratio 24.5 Calcium 9.5 8.5-10.1 mg/dL Bilirubin Total 0.3 0.2-1.0 mg/dL Aspartate Amino Transferase 16 15-37 U/L Alanine Aminotransferase 29 14-59 U/L Alkaline Phosphatase 70 46-116 U/L Total Protein 6.9 6.4-8.2 g/dL Albumin Level 3.5 3.4-5.0 g/dL Globulin 3.4 Albumin Globulin Ratio 1.0 Performing Lab: see note ML - [facility] LB Troponin I High Sensitivity Reviewed date:05/20/2025 03:18:13 PM Interpretation: Performing Lab: Notes/Report: [facility] , Troponin I High Sensitivity 5.6 4.0-51.3 pg/mL CUT-OFF POINTS HAVE BEEN ESTABLISHED BASED ON THE FOURTH UNIVERSAL DEFINITION OF MYOCARDIAL INFARCTION. THE UPPER REFERENCE LIMIT (URL) OF TROPONIN, DEFINED THE 99TH PERCENTILE OF cTnI DISTRIBUTION IN A REFERENCE POPULATION, HAS BEEN CONFIRMED THE DECISION THRESHOLD FOR DC DIAGNOSIS. 99TH PERCENTILE = 51.4 PG/ML NOTE: HIGH-SENSITIVITY TROPONIN ASSAY IS NOT INTENDED TO BE USED IN ISOLATION BUT SHOULD BE INTERPRETED IN CONJUNCTION WITH OTHER DIAGNOSTIC AND CLINICAL INFORMATION. Performing Lab: see note ML - [facility] LB CBC AUTO DIFF Reviewed date:06/05/2025 09:07:10 PM Interpretation: Performing Lab: Notes/Report: [facility] , White Blood Count 6.7 4.0-11.0 10 3/uL Red Blood Count 4.55 4.20-5.40 10 6/uL Hemoglobin 12.2 12.0-16.0 g/dL Hematocrit 38.8 36.0-48.0 % Mean Corpuscular Volume 85.3 81.0-99.0 fL Mean Corpuscular Hemoglobin 26.8 26.7-34.0 pg Mean Corpuscular HGB Conc 31.4 29.9-35.2 g/dL Red Cell Distribution Width 16.7 11.0-15.0 % Platelet Count 223 150-450 10 3/uL Mean Platelet Volume 10.1 9.5-13.5 fL Neutrophils Percent Auto 57.7 43.0-75.0 % Lymphocytes Percent Auto 34.4 20.5-60.0 % Monocytes Percent Auto 5.7 1.7-12.0 % Eosinophils Percent Auto 1.4 0.9-7.0 % Basophils Percent Auto 0.6 0.2-2.0 % Immature Granulocytes Pct Auto 0.2 0.0-0.5 % Neutrophils Absolute Auto 3.9 1.4-6.5 10 3/uL Lymphocytes Absolute Auto 2.3 1.2-3.8 10 3/uL Monocytes Absolute Auto 0.4 0.3-0.8 10 3/uL Eosinophils Absolute Auto 0.1 0.0-0.7 10 3/uL Basophils Absolute Auto 0.0 0.0-0.1 10 3/uL Immature Granulocytes Abs Auto 0.01 0.00-0.03 10 3/uL Performing Lab: see note ML - [facility] FREE T3 Reviewed date:06/05/2025 09:07:10 PM Interpretation: Performing Lab: Notes/Report: [facility] , Free T3 1.95 2.18-3.98 pg/mL Performing Lab: see note ML - [facility] GLYCOHEMOGLOBIN A1C Reviewed date:06/05/2025 09:07:10 PM Interpretation: Performing Lab: Notes/Report: [facility] , Glycohemoglobin A1C 5.9 4.5-6.2 % ADA RECOMMENDED LIMIT 4.0 - 6.0 ADA THERAPEUTIC TARGET < 7.0 ACTION SUGGESTED > 7.0 Estimated Average Glucose 123 Performing Lab: see note ML - [facility] LB LIPID PROFILE Reviewed date:06/05/2025 09:07:10 PM Interpretation: Performing Lab: Notes/Report: [facility] , Triglycerides 44 <=150 mg/dL Cholesterol 115 <=200 mg/dL HDL Cholesterol 61 40-60 mg/dL > or =60 mg/dl - LOW CARDIOVASCULAR RISK <40 mg/dl - HIGH CARDIOVASCULAR RISK LDL Cholesterol Calculated 46.0 <100 mg/dl OPTIMAL 100-129 mg/dl NEAR OR ABOVE OPTIMAL 130-159 mg/dl BORDERLINE HIGH 160-189 mg/dl HIGH >190 mg/dl VERY HIGH VLDL CHOLESTEROL 8.8 Chol HDL Ratio 1.9 3.3 - 4.4 LOW RISK 4.4 - 7.1 AVERAGE RISK 7.1 - 11.0 MODERATE RISK >11.0 HIGH RISK Performing Lab: see note ML - [facility] LB PROF 14(COMP METB) Reviewed date:06/05/2025 09:07:10 PM Interpretation: Performing Lab: Notes/Report: [facility] , Sodium 147 136-145 mmol/L Potassium 4.0 3.5-5.1 mmol/L Chloride 109 98-107 mmol/L Carbon Dioxide 28.0 21.0-32.0 mmol/L Anion Gap 14.0 Glucose 98 74-106 mg/dL Blood Urea Nitrogen 21.0 7.0-18.0 mg/dL Creatinine 1.22 0.55-1.02 mg/dL Estimated GFR ( Candace 54 >=60 mL/min/1.73m 2 Estimated GFR (Non- Susi 45 >=60 mL/min/1.73m 2 BUN Creatinine Ratio 17.2 Calcium 9.2 8.5-10.1 mg/dL Bilirubin Total 0.6 0.2-1.0 mg/dL Aspartate Amino Transferase 19 15-37 U/L Alanine Aminotransferase 36 14-59 U/L Alkaline Phosphatase 57 46-116 U/L Total Protein 6.7 6.4-8.2 g/dL Albumin Level 3.5 3.4-5.0 g/dL Globulin 3.2 Albumin Globulin Ratio 1.1 Performing Lab: see note ML - [facility] LB T4 Reviewed date:06/05/2025 09:07:10 PM Interpretation: Performing Lab: Notes/Report: [facility] , T4 Thyroxine 7.20 4.80-13.90 ug/dL Performing Lab: see note ML - [facility] LB TSH Reviewed date:06/05/2025 09:07:10 PM Interpretation: Performing Lab: Notes/Report: [facility] , Thyroid Stimulating Hormone 2.200 0.358-3.740 uIU/mL Performing Lab: see note ML - [facility] LB NM gunnar perf SPECT rest str Reviewed date:06/05/2025 09:07:10 PM Interpretation: Performing Lab: Notes/Report: Source Facility: [place] [address] [place] [address] Nuclear Medicine Report Signed Patient: ABY MADRIGAL MR#: [id number] : 1965 Acct:[id number] Age/Sex: 59 / F ADM Date: 06/05/25 Loc: NM Attending Dr: GOMEZ SPENCE Ordering Physician: GOMEZ SPENCE Date of Service: 06/05/25 Procedure(s): NM gunnar perf SPECT rest str Accession Number(s): [id number] cc: Kendra Moran M.D.; GOMEZ SPENCE Patient Name: ABY MADRIGAL MR#: [id number] : 1965 Exam Date: 06/05/2025 Ordering Doctor: DR GOMEZ SPENCE M.D. RADIOLOGY REPORT PROCEDURE: NM GUNNAR PERF SPECT REST STR COMPARISON: None. INDICATIONS: CHEST PAIN, CORONARY ARTERY DISEASE TECHNIQUE: Exam Description: Stress/Rest one day protocol gated SPECT Rest Imagin.8 mCi Tc-99m Cardiolite IV on 06/05/2025 Stress Imaging 29.9 mCi Tc-99m Cardiolite IV on 06/05/2025 Exercise Protocol: 0.4 mg Lexiscan given IV Heart Rate (bpm): Rest: 51 Max: 115 PMHR: 71 Blood Pressure: Rest: 130/63 Max: 168/80 Symptoms: Rest and peak stress ECG findings were pending, and the exercise portion of the study was pending per attending physician [facility]. For more details, please see separate cardiac stress test report. FINDINGS: QUALITY OF STUDY: Good PERFUSION DEFECT: LOCATION: N/A SIZE: N/A SEVERITY: N/A TYPE: N/A WALL MOTION: Normal wall motion LV SIZE: 83 mL. TID / TCD: 1.0 LVEF: Calculated EF 72%. SUMMARY: Myocardial perfusion imaging study is normal CONCLUSION: 1. Myocardial perfusion is normal with soft tissue attenuation 2. Global left ventricular systolic function is normal 3. No evidence of significant transient ischemic dilatation Dictated by: Brunilda Cuellar M.D. on 06/05/2025 at 15:50 Approved by: Brunilda Cuellar M.D. on 06/05/2025 at 15:53 Dictated By: Brunilda Cuellar M.D. Signed By: 06/05/25 1553 DD/ 52 TD/TT: Pediatric Dermatologist: [place] [address] Nuclear Medicine Report Signed Patient: ABY MADRIGAL MR#: [id number] : 1965 Acct:[id number] Age/Sex: 59 / F ADM Date: 06/05/25 Loc: NM Attending Dr: GOMEZ SPENCE Ordering Physician: GOMEZ SPENCE Date of Service: 06/05/25 Procedure(s): NM gunnar perf SPECT rest str Accession Number(s): [id number] cc: Kendra Moran M.D. ; GOMEZ SPENCE Patient Name: ABY MADRIGAL MR#: [id number] : 1965 Exam Date: 06/05/2025 Ordering Doctor: DR GOMEZ SPENCE M.D. RADIOLOGY REPORT PROCEDURE: NM GUNNAR PE RF SPECT REST STR COMPARISON: None. INDICATIONS: CHEST P AIN, CORONARY ARTERY DISEASE TECHNIQUE: Exam Description: Stress/Rest one day protocol gated SPECT Rest Imagin.8 mC i Tc-99m Cardiolite IV on 06/05/2025 Stress Imaging 29.9 mCi Tc-99m Cardiolite IV on 06/05/2025 Exercise Protocol: 0 .4 mg Lexiscan given IV Heart Rate (bpm): Re st: 51 Max: 115 PMHR: 71 Blood Pressure: Rest : 130/63 Max: 168/80 Symptoms: Rest and peak stress ECG findings were pending, and the exercise portion of the study was pendin g per attending physician [facility]. For more details, please see separate cardiac stress test report. FINDINGS: QUALITY OF STUDY: Good PERFUSION DEFECT: LOCATION: N/A SIZE: N/A SEVERITY: N/A TYPE: N/A WALL MOTION: Normal wall motion LV SIZE: 83 mL. TID / TCD: 1.0 LVEF: Calculated EF 72%. SUMMARY: Myocardial perfusion imaging study is normal CONCLUSION: 1. Myocardial perfus ion is normal with soft tissue attenuation 2. Global left ventricular systolic function is normal 3. No evidence of significant transient ischemic dilatation Dictated by: Brunilda Cuellar M.D. on 06/05/2025 at 15:50 Approved by: Brunilda Cuellar M.D. on 06/05/2025 at 15:53 Dictated By: Brunilda Cuellar M.D. 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 Measurements Intervals Moseley Rate: 61 P: 53 IA: 182 QRS: 30 QRSD: 92 T: 150 QT: 390 QTc: 393 Interpretive Statements 1100 Sinus rhythm 4068 Nonspecific Twave abnormality 9130 borderline ECG Compared to ECG 05/09/2025 15:57:14 No significant changes Electronically Signed On 05-19-2025 11:58:15 EDT by GOMEZ SPENCE M.D. 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 Measurements Intervals Moseley Rate: 61 P: 53 IA: 182 QRS: 30 QRSD: 92 T: 150 QT: 390 QTc: 393 Interpretive Statements 1100 Sinus rhythm 4068 Nonspecific Twa ve abnormality 9130 borderline ECG Compared to ECG 05/09/2025 15:57:14 No significant changes Electronically Devora d On 05-19-2025 11:58:15 EDT by GOMEZ SPENCE M.D. Dictated By: GOMEZ SPENCE Signed By: 05/19/25 115 DD/ 03 TD/TT: Pediatric Dermatologist: CBC AUTO DIFF Reviewed date:05/20/2025 03:18:13 PM Interpretation: Performing Lab: Notes/Report: [facility] , White Blood Count 6.7 4.0-11.0 10 3/uL Red Blood Count 4.26 4.20-5.40 10 6/uL Hemoglobin 11.4 12.0-16.0 g/dL Hematocrit 35.6 36.0-48.0 % Mean Corpuscular Volume 83.6 81.0-99.0 fL Mean Corpuscular Hemoglobin 26.8 26.7-34.0 pg Mean Corpuscular HGB Conc 32.0 29.9-35.2 g/dL Red Cell Distribution Width 15.8 11.0-15.0 % Platelet Count 193 150-450 10 3/uL Mean Platelet Volume 9.7 9.5-13.5 fL Neutrophils Percent Auto 54.7 43.0-75.0 % Lymphocytes Percent Auto 34.3 20.5-60.0 % Monocytes Percent Auto 7.7 1.7-12.0 % Eosinophils Percent Auto 2.8 0.9-7.0 % Basophils Percent Auto 0.4 0.2-2.0 % Immature Granulocytes Pct Auto 0.1 0.0-0.5 % Neutrophils Absolute Auto 3.7 1.4-6.5 10 3/uL Lymphocytes Absolute Auto 2.3 1.2-3.8 10 3/uL Monocytes Absolute Auto 0.5 0.3-0.8 10 3/uL Eosinophils Absolute Auto 0.2 0.0-0.7 10 3/uL Basophils Absolute Auto 0.0 0.0-0.1 10 3/uL Immature Granulocytes Abs Auto 0.01 0.00-0.03 10 3/uL Performing Lab: see note ML - [facility] LB CBC AUTO DIFF Reviewed date:05/09/2025 05:41:53 PM Interpretation: Performing Lab: Notes/Report: [facility] , White Blood Count 4.8 4.0-11.0 10 3/uL Red Blood Count 4.63 4.20-5.40 10 6/uL Hemoglobin 12.3 12.0-16.0 g/dL Hematocrit 38.6 36.0-48.0 % Mean Corpuscular Volume 83.4 81.0-99.0 fL Mean Corpuscular Hemoglobin 26.6 26.7-34.0 pg Mean Corpuscular HGB Conc 31.9 29.9-35.2 g/dL Red Cell Distribution Width 16.0 11.0-15.0 % Platelet Count 216 150-450 10 3/uL Mean Platelet Volume 10.1 9.5-13.5 fL Neutrophils Percent Auto 50.1 43.0-75.0 % Lymphocytes Percent Auto 37.9 20.5-60.0 % Monocytes Percent Auto 7.8 1.7-12.0 % Eosinophils Percent Auto 3.4 0.9-7.0 % Basophils Percent Auto 0.8 0.2-2.0 % Immature Granulocytes Pct Auto 0.0 0.0-0.5 % Neutrophils Absolute Auto 2.4 1.4-6.5 10 3/uL Lymphocytes Absolute Auto 1.8 1.2-3.8 10 3/uL Monocytes Absolute Auto 0.4 0.3-0.8 10 3/uL Eosinophils Absolute Auto 0.2 0.0-0.7 10 3/uL Basophils Absolute Auto 0.0 0.0-0.1 10 3/uL Immature Granulocytes Abs Auto 0.00 0.00-0.03 10 3/uL Performing Lab: see note [place] LB BNP Reviewed date:05/10/2025 08:41:09 AM Interpretation: Performing Lab: Notes/Report: Comment From ER blood if possible [facility] , NT Pro B Type Natriuretic Pept 174.0 <=900.0 pg/mL Performing Lab: see note [place] LB E coli Shiga Toxin EIA Reviewed date:04/24/2025 04:35:14 PM Interpretation: Performing Lab: Notes/Report: [facility] , E coli Shiga Toxin EIA See Below For Report E coli Shiga Toxin EIA E coli Shiga Toxin EIA Negative E coli Shiga Toxin EIA E coli Shiga Toxin EIA Performed at: [facility] E coli Shiga Toxin EIA E coli Shiga Toxin EIA [address] [place], [place] [id number] E coli Shiga Toxin EIA E coli Shiga Toxin EIA Transplant Worker: Levar Romeo PhD, Phone: [phone] E coli Shiga Toxin EIA Performing Lab: see note [facility] LB SEE REPORT - Service Line Coordinator Id information not found for OBX-specific newscast producer legend Salmonella/Shigella Screen Reviewed date:04/24/2025 04:35:14 PM Interpretation: Performing Lab: Notes/Report: [facility] , Salmonella/Shigella Screen See Below For Report Salmonella/Shigella Screen Salmonella/Shigella Screen No Salmonella or Shigella recovered. Salmonella/Shigella Screen Performing Lab: see note [facility] LB LAB TESTING Reviewed date:04/25/2025 09:59:02 PM Interpretation: Performing Lab: Notes/Report: 834313 Reducing Substances - Fecal [facility] , Miscellaneous Test COMMENT . Test Ordered: [id number] Reducing Substances - Fecal Reducing Substances - Fecal Normal Y8 Reference Range: Normal Performed at: Y8 - [facility] [address] [place] [id number] Transplant Worker: Navneet Simeon [facility], Phone: [phone] Performed at: - [facility] [address] [id number] Transplant Worker: Gopi Romeo PhD, Phone: [phone] Performing Lab: see note LC - [facility] LB CBC AUTO DIFF Reviewed date:04/01/2025 06:23:54 PM Interpretation: Performing Lab: Notes/Report: [facility] , White Blood Count 6.5 4.0-11.0 [...] Performing Lab: see note ML - [facility] LB ITP Reviewed date:12/07/2024 01:55:15 PM Interpretation: Performing Lab: Notes/Report: Source Facility: [place] [address] [place] [address] Cardiac Rehab Report Signed Patient: ABY MADRIGAL MR#: [id number] : 1965 Acct:[id number] Age/Sex: 59 / F ADM Date: 12/06/24 Loc: CR Attending Dr: GOMEZ SPENCE Ordering Physician: Aguilar Man D.O. 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 Signed By: 12/06/242053 DD/ 8 TD/TT: Pediatric Dermatologist: [place] [address] Cardiac Rehab Report Signed Patient: ABY MADRIGAL MR#: [id number] : 1965 Acct:[id number] Age/Sex: 59 / F ADM Date: 12/06/24 Loc: CR Attending Dr: GOMEZ SPENCE Ordering Physician: Aguilar Man D.O. 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 Signed By: 12/06/242053 DD/ 8 TD/TT: Pediatric Dermatologist: XR chest 1V Reviewed date:11/16/2024 06:07:28 PM Interpretation: Performing Lab: Notes/Report: Source Facility: [place] [address] XRay Report Signed Patient: ABY MADRIGAL MR#: [id number] : 1965 Acct:[id number] Age/Sex: 59 / F ADM Date: 11/15/24 Loc: ER Attending Dr: Ordering Physician: Donald Hoskins D.O. Date of Service: 11/15/24 Procedure(s): XR chest 1V Accession Number(s): [id number] cc: Donald Hoskins D.O.; Kendra Moran M.D. [place] [address] Patient Name: ABY MADRIGAL MRN: [id number] date: 1965 Sex: F Assigned Patient Location: ER Current Patient Location: ER Accession/Order Number: [id number] Exam Date: 11/15/2024 22:18 Report Date: 11/15/2024 [...] D.O. Signed By: 11/15/242255 DD/ 53 TD/TT: Pediatric Dermatologist: [place] [address] XRay Report Signed Patient: ABY MADRIGAL MR#: [id number] : 1965 Acct:[id number] Age/Sex: 59 / F ADM Date: 11/15/24 Loc: ER Attending Dr: Ordering Physician: Donald Hoskins D.O. Date of Service: 11/15/24 Procedure(s): XR chest 1V Accession Number(s): [id number] cc: Donald Hoskins D.O.; Kendra Moran M.D. [place] [address] Patient Name: ABY MADRIGAL MRN: [id number] date: 1965 Sex: F Assigned Patient Location: ER Current Patient Loca tion: ER Accession/Order Numb er: [id number] Exam Date: 22:18 Report Date: 11/15/2024 22:54 [...] D.O. Signed By: 11/15/242255 DD/ 53 TD/TT: Pediatric Dermatologist: ECG 12 lead Reviewed date:11/18/2024 09:02:39 PM Interpretation: Performing Lab: Notes/Report: Source Facility: [place] [address] [place] [address] Electrocardiograph Report Signed Patient: ABY MADRIGAL MR#: [id number] : 1965 Acct:[id number] Age/Sex: 59 / F ADM Date: 11/15/24 Loc: ER Attending Dr: Ordering Physician: Donald Hoskins D.O. 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 Signed By: <Electronically signed by Kendra Moran M.D.> 11/17/24 0653 DD/ 57 TD/TT: Pediatric Dermatologist: [place] [address] Electrocardiograph Report Signed Patient: ABY MADRIGAL MR#: [id number] : 1965 Acct:[id number] Age/Sex: 59 / F ADM Date: 11/15/24 Loc: ER Attending Dr: Ordering Physician: Donald Hoskins D.O. 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 Signed By: <Electronically signed by Kendra Moran M.D.> 11/17/24 0653 DD/ TD/TT: Pediatric Dermatologist: Troponin I High Sensitivity Reviewed date:11/16/2024 06:07:28 PM Interpretation: Performing Lab: Notes/Report: [facility] , Troponin I High Sensitivity 8.4 4.0-51.3 pg/mL CUT-OFF POINTS HAVE BEEN ESTABLISHED BASED ON THE FOURTH UNIVERSAL DEFINITION OF MYOCARDIAL INFARCTION. THE UPPER REFERENCE LIMIT (URL) OF TROPONIN, DEFINED THE 99TH PERCENTILE OF cTnI DISTRIBUTION IN A REFERENCE POPULATION, HAS BEEN CONFIRMED THE DECISION THRESHOLD FOR DC DIAGNOSIS. 99TH PERCENTILE = 51.4 PG/ML NOTE: HIGH-SENSITIVITY TROPONIN ASSAY IS NOT INTENDED TO BE USED IN ISOLATION BUT SHOULD BE INTERPRETED IN CONJUNCTION WITH OTHER DIAGNOSTIC AND CLINICAL INFORMATION. Performing Lab: see note ML - [facility] LB PROF 14(COMP METB) Reviewed date:11/16/2024 06:07:28 PM Interpretation: Performing Lab: Notes/Report: [facility] , Sodium 145 136-145 mmol/L Potassium [...] 1.1 Performing Lab: see note ML - [facility] LB CBC AUTO DIFF Reviewed date:11/16/2024 06:07:28 PM Interpretation: Performing Lab: Notes/Report: [facility] , White Blood Count 6.7 4.0-11.0 [...] Performing Lab: see note ML - [facility] LB BNP Reviewed date:11/16/2024 06:07:28 PM Interpretation: Performing Lab: Notes/Report: [facility] , NT Pro B Type Natriuretic Pept 199.0 <=900.0 pg/mL Performing Lab: see note ML - [facility] Troponin I High Sensitivity Reviewed date:11/13/2024 08:37:17 PM Interpretation: Performing Lab: Notes/Report: [facility] , Troponin I High Sensitivity 25.8 4.0-51.3 pg/mL CUT-OFF POINTS HAVE BEEN ESTABLISHED BASED ON THE FOURTH UNIVERSAL DEFINITION OF MYOCARDIAL INFARCTION. THE UPPER REFERENCE LIMIT (URL) OF TROPONIN, DEFINED THE 99TH PERCENTILE OF cTnI DISTRIBUTION IN A REFERENCE POPULATION, HAS BEEN CONFIRMED THE DECISION THRESHOLD FOR DC DIAGNOSIS. 99TH PERCENTILE = 51.4 PG/ML NOTE: HIGH-SENSITIVITY TROPONIN ASSAY IS NOT INTENDED TO BE USED IN ISOLATION BUT SHOULD BE INTERPRETED IN CONJUNCTION WITH OTHER DIAGNOSTIC AND CLINICAL INFORMATION. Performing Lab: see note ML - [facility] LB PROF CHEM 8 (BAS METB) Reviewed date:11/13/2024 08:37:17 PM Interpretation: Performing Lab: Notes/Report: [facility] , Sodium 145 136-145 mmol/L Potassium [...] Performing Lab: see note ML - [facility] LB CBC AUTO DIFF Reviewed date:11/13/2024 08:37:17 PM Interpretation: Performing Lab: Notes/Report: [facility] , White Blood Count 4.7 4.0-11.0 [...] Performing Lab: see note ML - [facility] LB Troponin I High Sensitivity Reviewed date:11/12/2024 02:05:43 PM Interpretation: Performing Lab: Notes/Report: Comment do a total of 4 please [facility] , Troponin I High Sensitivity 52.3 4.0-51.3 pg/mL RESULTS CALLED TO SONYA MAYS RN AT 1134 CUT-OFF POINTS HAVE BEEN ESTABLISHED BASED ON THE FOURTH UNIVERSAL DEFINITION OF MYOCARDIAL INFARCTION. THE UPPER REFERENCE LIMIT (URL) OF TROPONIN, DEFINED THE 99TH PERCENTILE OF cTnI DISTRIBUTION IN A REFERENCE POPULATION, HAS BEEN CONFIRMED THE DECISION THRESHOLD FOR DC DIAGNOSIS. 99TH PERCENTILE = 51.4 PG/ML NOTE: HIGH-SENSITIVITY TROPONIN ASSAY IS NOT INTENDED TO BE USED IN ISOLATION BUT SHOULD BE INTERPRETED IN CONJUNCTION WITH OTHER DIAGNOSTIC AND CLINICAL INFORMATION. Performing Lab: see note - [facility] LB Troponin I High Sensitivity Reviewed date:11/12/2024 02:05:43 PM Interpretation: Performing Lab: Notes/Report: [facility] , Troponin I High Sensitivity 60.1 4.0-51.3 pg/mL RESULTS CALLED TO SHANI SAAVEDRA RN AT 0901 CUT-OFF POINTS HAVE BEEN ESTABLISHED BASED ON THE FOURTH UNIVERSAL DEFINITION OF MYOCARDIAL INFARCTION. THE UPPER REFERENCE LIMIT (URL) OF TROPONIN, DEFINED THE 99TH PERCENTILE OF cTnI DISTRIBUTION IN A REFERENCE POPULATION, HAS BEEN CONFIRMED THE DECISION THRESHOLD FOR DC DIAGNOSIS. 99TH PERCENTILE = 51.4 PG/ML NOTE: HIGH-SENSITIVITY TROPONIN ASSAY IS NOT INTENDED TO BE USED IN ISOLATION BUT SHOULD BE INTERPRETED IN CONJUNCTION WITH OTHER DIAGNOSTIC AND CLINICAL INFORMATION. Performing Lab: see note - [facility] XR chest 1V Reviewed date:11/12/2024 02:05:43 PM Interpretation: Performing Lab: Notes/Report: Source Facility: [place] [address] XRay Report Signed Patient: ABY MADRIGAL MR#: [id number] : 1965 Acct:[id number] Age/Sex: 59 / F ADM Date: 11/12/24 Loc: ER Attending Dr: Ordering Physician: Elie Ortiz Date of Service: 11/12/24 Procedure(s): XR chest 1V Accession Number(s): [id number] cc: Kendra Moran M.D.; Elie Ortiz [place] [address] Patient Name: ABY MADRIGAL MRN: [id number]:[id number] date: 1965 Sex: F Assigned Patient Location: ER Current Patient Location: ER Accession/Order Number: [id number] Exam Date: 11/12/2024 06:50 Report Date: 11/12/2024 [...] Dictated By: Padmaja Huggins M.D. Signed By: 11/12/2409 DD/ 5 TD/TT: Pediatric Dermatologist: [place] [address] XRay Report Signed Patient: ABY MADRIGAL MR#: [id number] : 1965 Acct:[id number] Age/Sex: 59 / F ADM Date: 11/12/24 Loc: ER Attending Dr: Ordering Physician: Elie Ortiz Date of Service: 11/12/24 Procedure(s): XR chest 1V Accession Number(s): [id number] cc: Kendra Moran M.D. ; Elie Ortiz [address] [address] Patient Name: ABY MADRIGAL MRN: [id number]:[id number] date: 1965 Sex: F Assigned Patient Location: ER Current Patient Loca tion: ER Accession/Order Numb er: [id number] Exam Date: 06:50 Report Date: 11/12/2024 07:06 [...] Dictated By: Shan Huggins M.D. Signed By: 11/12/24 07 DD/ 5 TD/TT: Pediatric Dermatologist: ECG 12 lead Reviewed date:11/14/2024 10:08:15 AM Interpretation: Performing Lab: Notes/Report: Source Facility: [place] [address] [place] [address] Electrocardiograph Report Signed Patient: ABY MADRIGAL MR#: [id number] : 1965 Acct:[id number] Age/Sex: 59 / F ADM Date: 11/12/24 Loc: [place] 212-[address]: Kendra Moran M.D. 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 Signed By: 11/13/242237 DD/ 06 TD/TT: Pediatric Dermatologist: [place] [address] Electrocardiograph Report Signed Patient: ABY MADRIGAL MR#: [id number] : 1965 Acct:[id number] Age/Sex: 59 / F ADM Date: 11/12/24 Loc: MS 212-[address]: Zhanna Moran M.D. 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 Signed By: 11/13/242237 DD/ 06 TD/TT: Pediatric Dermatologist: Troponin I High Sensitivity Reviewed date:11/12/2024 02:05:43 PM Interpretation: Performing Lab: Notes/Report: [facility] , Troponin I High Sensitivity 56.5 4.0-51.3 pg/mL RESULTS CALLED TO DR JONES AT 0730 CUT-OFF POINTS HAVE BEEN ESTABLISHED BASED ON THE FOURTH UNIVERSAL DEFINITION OF MYOCARDIAL INFARCTION. THE UPPER REFERENCE LIMIT (URL) OF TROPONIN, DEFINED THE 99TH PERCENTILE OF cTnI DISTRIBUTION IN A REFERENCE POPULATION, HAS BEEN CONFIRMED THE DECISION THRESHOLD FOR DC DIAGNOSIS. 99TH PERCENTILE = 51.4 PG/ML NOTE: HIGH-SENSITIVITY TROPONIN ASSAY IS NOT INTENDED TO BE USED IN ISOLATION BUT SHOULD BE INTERPRETED IN CONJUNCTION WITH OTHER DIAGNOSTIC AND CLINICAL INFORMATION. Performing Lab: see note ML - [facility] LB PROF 14(COMP METB) Reviewed date:11/12/2024 02:05:43 PM Interpretation: Performing Lab: Notes/Report: [facility] , Sodium 147 136-145 mmol/L Potassium [...] 1.0 Performing Lab: see note ML - [facility] LB LIPASE Reviewed date:11/12/2024 02:05:43 PM Interpretation: Performing Lab: Notes/Report: [facility] , Lipase 60.0 16.0-77.0 U/L Performing Lab: see note ML - [facility] LB CBC AUTO DIFF Reviewed date:11/12/2024 02:05:43 PM Interpretation: Performing Lab: Notes/Report: [facility] , White Blood Count 6.4 4.0-11.0 [...] Performing Lab: see note ML - [facility] LB BNP Reviewed date:11/12/2024 02:05:43 PM Interpretation: Performing Lab: Notes/Report: [facility] , NT Pro B Type Natriuretic Pept 306.0 <=900.0 pg/mL Performing Lab: see note ML - [facility] LB ITP Reviewed date:11/08/2024 04:14:57 PM Interpretation: Performing Lab: Notes/Report: Source Facility: [place] [address] [place] [address] Cardiac Rehab Report Signed Patient: ABY MADRIGAL MR#: [id number] : 1965 Acct:[id number] Age/Sex: 59 / F ADM Date: 11/06/24 Loc: CR Attending Dr: GOMEZ SPENCE Ordering Physician: GOMEZ SPENCE Date of Service: 11/07/24 Procedure(s): ITP Accession Number(s): [id number] cc: [facility] Test Date: 2024-11-07 Pat Name: ABY MADRIGAL Department: Room: - 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 Order Number: [id number] Milton MD: AGUILAR MAN Interpretive Statements Session Date: Electronically Signed On 11-07-2024 20:11:30 EST by AGUILAR MAN Dictated By: Aguilar Man D.O. 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 Order Number: [id number] Milton MD: AGUILAR MAN Interpretive Statements Session Date: Electronically Devora d On 11-07-2024 20:11:30 EST by AGUILAR MAN Dictated By: Aguilar Man D.O. Signed By: 11/07/24201011/07/242010 DD/ 0950 TD/TT: Pediatric Dermatologist: RT pulmonary function test Reviewed date:11/08/2024 04:14:57 PM Interpretation: Performing Lab: Notes/Report: Source Facility: [place] [address] Respiratory Report Signed Patient: ABY MADRIGAL MR#: [id number] : 1965 Acct:[id number] Age/Sex: 59 / F ADM Date: 11/03/24 Loc: CARD Attending Dr: Francine Bee M.D. Ordering Physician: Francine Bee M.D. Date of Service: 11/03/24 Procedure(s): RT pulmonary function test Accession Number(s): [id number] cc: [facility] Test Date: 2024-11-03 Pat Name: ABY MADRIGAL Department: Room: - Gender: Female Biological Plant Operator: Mary Peoples RRT : 1965 Requested By: [id number] Order Number: [id number] Milton MD: Marlon Beal Interpretive Statements Pulmonary [...] 11/08/24 0659 11/08/24 0659 DD/ 1255 TD/TT: Pediatric Dermatologist: [place] [address] Respiratory Report Signed Patient: ABY MADRIGAL MR#: [id number] : 1965 Acct:[id number] Age/Sex: 59 / F ADM Date: 11/03/24 Loc: CARD Attending Dr: Cedric Bee M.D. Ordering Physician: Amaya BeeStaff Errol Date of Service: 11/03/24 Procedure(s): RT pulmonary function test Accession Number(s): [id number] cc: [facility] Test Date: 2024-11-03 Pat Name: ABY MADRIGAL Department: 48 Room: - Gender: Female Biological Plant Operator: Mary Peoples RRT : 1965 Requ ested By: [id number] Order Number: [id number] Reading MD: Marlon Beal Interpretive Statements Pulmonary [...] 11/08/24 0659 11/08/24 0659 DD/ 1255 TD/TT: Pediatric Dermatologist: XR chest 2V Reviewed date:10/16/2024 08:40:23 PM Interpretation: Performing Lab: Notes/Report: Source Facility: [place] [address] XRay Report Signed Patient: ABY MADRIGAL MR#: [id number] : 1965 Acct:[id number] Age/Sex: 59 / F ADM Date: 10/15/24 Loc: ER Attending Dr: Ordering Physician: Julienne Fuchs Date of Service: 10/15/24 Procedure(s): XR chest 2V Accession Number(s): [id number] cc: Julienne Fuchs; Kendra Moran M.D. [place] [address] Patient Name: ABY MADRIGAL MRN: [id number]:[id number] date: 1965 Sex: F Assigned Patient Location: ER Current Patient Location: Accession/Order Number: [id number] Exam Date: 10/15/2024 17:15 Report Date: 10/15/2024 [...] M.D. Signed By: 10/15/241853 DD/ 51 TD/TT: Pediatric Dermatologist: [place] [address] XRay Report Signed Patient: ABY MADRIGAL MR#: [id number] : 1965 Acct:[id number] Age/Sex: 59 / F ADM Date: 10/15/24 Loc: ER Attending Dr: Ordering Physician: Julienne Fuchs Date of Service: 10/15/24 Procedure(s): XR chest 2V Accession Number(s): [id number] cc: Julienne Fuchs; Kendra Moran M.D. [place] [id number] Patient Name: ABY MADRIGAL MRN: [id number]:[id number] date: 1965 Sex: F Assigned Patient Location: ER Current Patient Location: Accession/Order Numb er: [id number] Exam Date: 17:15 Report Date: 10/15/2024 18:52 [...] M.D. 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 Signed By: 10/17/242019 DD/ 55 TD/TT: Pediatric Dermatologist: Troponin I High Sensitivity Reviewed date:10/16/2024 08:40:23 PM Interpretation: Performing Lab: Notes/Report: [facility] , Troponin I High Sensitivity 8.6 4.0-51.3 pg/mL CUT-OFF POINTS HAVE BEEN ESTABLISHED BASED ON THE FOURTH UNIVERSAL DEFINITION OF MYOCARDIAL INFARCTION. THE UPPER REFERENCE LIMIT (URL) OF TROPONIN, DEFINED THE 99TH PERCENTILE OF cTnI DISTRIBUTION IN A REFERENCE POPULATION, HAS BEEN CONFIRMED THE DECISION THRESHOLD FOR DC DIAGNOSIS. 99TH PERCENTILE = 51.4 PG/ML NOTE: HIGH-SENSITIVITY TROPONIN ASSAY IS NOT INTENDED TO BE USED IN ISOLATION BUT SHOULD BE INTERPRETED IN CONJUNCTION WITH OTHER DIAGNOSTIC AND CLINICAL INFORMATION. Performing Lab: see note ML - [facility] LB Prothrombin Time INR Reviewed date:10/16/2024 08:40:23 PM Interpretation: Performing Lab: Notes/Report: [facility] , Prothrombin Time 9.8 9.0-11.6 sec INR <0.93 DESIRED INR: 2.0-3.0 CONDITIONS NOT LISTED BELOW 2.5-3.5 FOR PROSTHETIC HEART VALVE REPLACEMENT 2.5-3.5 RECURRENT THROMBOSIS Performing Lab: see note ML - [facility] LB PTT Reviewed date:10/16/2024 08:40:23 PM Interpretation: Performing Lab: Notes/Report: [facility] , Partial Thromboplastin Time 38.9 22.3-36.2 sec Performing Lab: see note ML - [facility] LB PROF 14(COMP METB) Reviewed date:10/16/2024 08:40:23 PM Interpretation: Performing Lab: Notes/Report: [facility] , Sodium 145 136-145 mmol/L Potassium [...] 1.1 Performing Lab: see note ML - [facility] LB CBC AUTO DIFF Reviewed date:10/16/2024 08:40:23 PM Interpretation: Performing Lab: Notes/Report: [facility] , White Blood Count 6.7 4.0-11.0 [...] 3/uL Performing Lab: see note ML - [facility] LB BNP Reviewed date:10/16/2024 08:40:23 PM Interpretation: Performing Lab: Notes/Report: [facility] , NT Pro B Type Natriuretic Pept 168.0 <=900.0 pg/mL Performing Lab: see note ML - [facility] LB CT head/brain wo con Reviewed date:09/28/2024 08:19:49 PM Interpretation: Performing Lab: Notes/Report: Source Facility: [facility]-[address] [place] [address] [place] [address] CT Scan Report Signed Patient: ABY MADRIGAL MR#: [id number] : 1965 Acct:[id number] Age/Sex: 59 / F ADM Date: 09/28/24 Loc: ER Attending Dr: Ordering Physician: Carla Skinner D.O. Date of Service: 09/28/24 Procedure(s): CT head/brain wo con Accession Number(s): [id number] cc: Kendra Moran M.D. [place] [address] Patient Name: ABY MADRIGAL MRN: [employer]:[id number] date: 1965 Sex: F Assigned Patient Location: ER Current Patient Location: ED.[facility] Accession/Order Number: [id number] Exam Date: 09/28/2024 12:41 Report Date: 09/28/2024 [...] Signed By: 09/28/24 1345 DD/ 1342 TD/TT: Pediatric Dermatologist: [place] [address] CT Scan Report Signed Patient: ABY MADRIGAL MR#: [id number] : 1965 Acct:[id number] Age/Sex: 59 / F ADM Date: 09/28/24 Loc: ER Attending Dr: Ordering Physician: Carla Skinner D.O. Date of Service: 09/28/24 Procedure(s): CT head/brain wo con Accession Number(s): [id number] cc: Kendra Moran M.D. The [address] [address] Patient Name: ABY MADRIGAL MRN: TBH:[id number] date: 1965 Sex: F Assigned Patient Location: ER Current Patient Loca tion: ED.MAIN Accession/Order Numb er: [id number] Exam Date: 12:41 Report Date: 09/28/2024 13:42 [...] Signed By: 09/28/24 1345 DD/ 1342 TD/TT: Pediatric Dermatologist: SARS-CoV-2 Ag* Reviewed date:09/28/2024 08:19:49 PM Interpretation: Performing Lab: Notes/Report: [facility] , SARS-CoV-2 Ag NEGATIVE NEGATIVE This [...] Performing Lab: see note ML - [facility] LB Troponin I High Sensitivity Reviewed date:09/28/2024 08:19:49 PM Interpretation: Performing Lab: Notes/Report: [facility] , Troponin I High Sensitivity 9.7 4.0-51.3 pg/mL CUT-OFF POINTS HAVE BEEN ESTABLISHED BASED ON THE FOURTH UNIVERSAL DEFINITION OF MYOCARDIAL INFARCTION. THE UPPER REFERENCE LIMIT (URL) OF TROPONIN, DEFINED THE 99TH PERCENTILE OF cTnI DISTRIBUTION IN A REFERENCE POPULATION, HAS BEEN CONFIRMED THE DECISION THRESHOLD FOR DC DIAGNOSIS. 99TH PERCENTILE = 51.4 PG/ML NOTE: HIGH-SENSITIVITY TROPONIN ASSAY IS NOT INTENDED TO BE USED IN ISOLATION BUT SHOULD BE INTERPRETED IN CONJUNCTION WITH OTHER DIAGNOSTIC AND CLINICAL INFORMATION. Performing Lab: see note ML - [facility] LB PROF 14(COMP METB) Reviewed date:09/28/2024 08:19:49 PM Interpretation: Performing Lab: Notes/Report: [facility] , Sodium 145 136-145 mmol/L Potassium [...] Performing Lab: see note ML - [facility] LB ITP Reviewed date:09/07/2024 09:52:49 PM Interpretation: Performing Lab: Notes/Report: Source Facility: [facility]-[address] [place] [address] [place] [address] Cardiac Rehab Report Signed Patient: ABY MADRIGAL MR#: [id number] : 1965 Acct:[id number] Age/Sex: 59 / F ADM Date: 09/04/24 Loc: CR Attending Dr: GOMEZ SPENCE Ordering Physician: GOMEZ SPENCE Date of Service: 09/05/24 Procedure(s): ITP Accession Number(s): [id number] cc: [facility] Test Date: 2024-09-05 Pat Name: ABY MADRIGAL Department: Room: - 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 Order Number: [id number] Reading MD: AGUILAR MAN Interpretive Statements Session Date: Electronically Signed On 09-05-2024 22:39:54 EDT by AGUILAR MAN Dictated By: Aguilar Man D.O. 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 Order Number: [id number] Milton MD: AGUILAR MAN Interpretive Statements Session Date: Electronically Devora d On 09-05-2024 22:39:54 EDT by AGUILAR MAN Dictated By: Aguilar Man D.O. Signed By: 09/05/24223909/05/242239 DD/ TD/TT: Pediatric Dermatologist: SARS-CoV-2 Ag* Reviewed date:08/17/2024 06:37:37 PM Interpretation: Performing Lab: Notes/Report: [facility] , SARS-CoV-2 Ag NEGATIVE NEGATIVE This [...] Performing Lab: see note ML - [facility] LB INFLUENZA A AND B AG Reviewed date:08/17/2024 06:37:37 PM Interpretation: Performing Lab: Notes/Report: [facility] , Influenza Virus A Antigen Negative [...] Performing Lab: see note ML - [facility] LB ITP Reviewed date:08/10/2024 01:06:14 PM Interpretation: Performing Lab: Notes/Report: Source Facility: [facility]-[address], [place] [address] Cardiac Rehab Report Signed Patient: ABY MADRIGAL MR#: [id number] : 1965 Acct:[id number] Age/Sex: 59 / F ADM Date: 08/09/24 Loc: CR Attending Dr: GOMEZ SPENCE Ordering Physician: GOMEZ SPENCE Date of Service: 08/09/24 Procedure(s): ITP Accession Number(s): [id number] cc: [facility] Test Date: 2024-08-09 Pat Name: ABY MADRIGAL Department: Room: - 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 Order Number: [id number] Milton MD: AGUILAR MAN Interpretive Statements Session Date: Electronically Signed On 08-09-2024 23:13:13 EDT by AGUILAR MAN Dictated By: Aguilar Man D.O. 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 Order Number: [id number] Milton MD: AGUILAR MAN Interpretive Statements Session Date: Electronically Devora d On 08-09-2024 23:13:13 EDT by AGUILAR MAN Dictated By: Aguilar Man D.O. Signed By: 09231208/09/242312 DD/ 1418 TD/TT: Pediatric Dermatologist: PROF ANDRES 8 ([facility]) Reviewed date:07/27/2024 08:17:46 PM Interpretation: Performing Lab: Notes/Report: [facility] , Sodium 139 136-145 mmol/L Potassium 3.5 3.5-5.1 mmol/L Chloride 102 98-107 mmol/L Carbon Dioxide 28.2 21.0-32.0 mmol/L Anion Gap 12.3 Glucose 97 74-106 mg/dL Blood Urea Nitrogen 17.0 7.0-18.0 mg/dL Creatinine 1.37 0.55-1.02 mg/dL Estimated GFR ( Candace 48 >=60 Estimated GFR (Non- Susi 39 >=60 BUN Creatinine Ratio 12.4 Calcium 9.1 8.5-10.1 mg/dL Performing Lab: see note ML - [facility] LB CBC AUTO DIFF Reviewed date:07/27/2024 08:17:46 PM Interpretation: Performing Lab: Notes/Report: [facility] , White Blood Count 6.5 4.0-11.0 [...] 3/uL Performing Lab: see note ML - [facility] LB Prothrombin Time INR Reviewed date:07/24/2024 12:00:18 PM Interpretation: Performing Lab: Notes/Report: [facility] , Prothrombin Time 10.1 9.0-11.6 sec INR 0.95 DESIRED INR: 2.0-3.0 CONDITIONS NOT LISTED BELOW 2.5-3.5 FOR PROSTHETIC HEART VALVE REPLACEMENT 2.5-3.5 RECURRENT THROMBOSIS Performing Lab: see note ML - [facility] LB PTT Reviewed date:07/24/2024 12:00:18 PM Interpretation: Performing Lab: Notes/Report: [facility] , Partial Thromboplastin Time 27.1 22.3-36.2 sec Performing Lab: see note - [facility] LB PROF 14(COMP METB) Reviewed date:07/24/2024 12:00:18 PM Interpretation: Performing Lab: Notes/Report: [facility] , Sodium 145 136-145 mmol/L Potassium [...] Performing Lab: see note ML - [facility] LB PHOSPHORUS Reviewed date:07/24/2024 12:00:18 PM Interpretation: Performing Lab: Notes/Report: [facility] , Phosphorus 3.6 2.6-4.7 mg/dL Performing Lab: see note ML - [facility] LB MAGNESIUM Reviewed date:07/24/2024 12:00:18 PM Interpretation: Performing Lab: Notes/Report: [facility] , Magnesium 1.9 1.8-2.4 mg/dL Performing Lab: see note ML - [facility] LB CBC AUTO DIFF Reviewed date:07/24/2024 12:00:18 PM Interpretation: Performing Lab: Notes/Report: [facility] , White Blood Count 6.5 4.0-11.0 [...] Performing Lab: see note ML - [facility] LB BNP Reviewed date:07/24/2024 12:00:18 PM Interpretation: Performing Lab: Notes/Report: [facility] , NT Pro B Type Natriuretic Pept 678.0 <=900.0 pg/mL Performing Lab: see note ML - [facility] LB PROF CHEM 8 (BAS METB) Reviewed date:07/24/2024 12:00:18 PM Interpretation: Performing Lab: Notes/Report: [facility] , Sodium 145 136-145 mmol/L Potassium 3.3 3.5-5.1 mmol/L Chloride 108 98-107 mmol/L Carbon Dioxide 26.6 21.0-32.0 mmol/L Anion Gap 13.7 Glucose 122 74-106 mg/dL Blood Urea Nitrogen 9.0 7.0-18.0 mg/dL Creatinine 1.43 0.55-1.02 mg/dL Estimated GFR ( Candace 45 >=60 Estimated GFR (Non- Susi 37 >=60 BUN Creatinine Ratio 6.3 Calcium 8.9 8.5-10.1 mg/dL Performing Lab: see note ML - [facility] LB Urine Culture, Routine Reviewed date:07/25/2024 08:57:52 PM [...] Culture, Routine Urine Culture, Routine Performed at: [facility] Urine Culture, Routine Urine Culture, Routine [address] [place] [phone] Urine Culture, Routine Urine Culture, Routine Transplant Worker: Levar Romeo PhD, Phone: [phone] Urine Culture, Routine Performing Lab: see note LC - [facility] LB SEE REPORT - Service Line Coordinator Id information not found for OBX-specific newscast producer legend Renin Activity, Plasma Reviewed date:07/31/2024 07:53:46 PM Interpretation: Performing Lab: Notes/Report: [facility] , Renin Activity, Plasma <0.167 0.167-5.3 80 ng/mL/hr This test was developed and its performance characteristics determined by [facility]. It has not been cleared or approved by the Food and Drug Administration. Performed at: - [address] [id number] Transplant Worker: Kelsey Ceron MD, Phone: [phone] Performing Lab: see note - [facility] LB PROF CHEM 8 (BAS METB) Reviewed date:07/20/2024 12:49:37 PM Interpretation: Performing Lab: Notes/Report: [facility] , Sodium 143 136-145 mmol/L Potassium 3.7 3.5-5.1 mmol/L Chloride 105 98-107 mmol/L Carbon Dioxide 26.8 21.0-32.0 mmol/L Anion Gap 14.9 Glucose 121 74-106 mg/dL Blood Urea Nitrogen 11.0 7.0-18.0 mg/dL Creatinine 1.23 0.55-1.02 mg/dL Estimated GFR ( Candace 54 >=60 Estimated GFR (Non- Susi 45 >=60 BUN Creatinine Ratio 8.9 Calcium 9.5 8.5-10.1 mg/dL Performing Lab: see note ML - [facility] Troponin I High Sensitivity Reviewed date:07/11/2024 02:45:52 PM Interpretation: Performing Lab: Notes/Report: [facility] , Troponin I High Sensitivity 8.0 4.0-51.3 pg/mL CUT-OFF POINTS HAVE BEEN ESTABLISHED BASED ON THE FOURTH UNIVERSAL DEFINITION OF MYOCARDIAL INFARCTION. THE UPPER REFERENCE LIMIT (URL) OF TROPONIN, DEFINED THE 99TH PERCENTILE OF cTnI DISTRIBUTION IN A REFERENCE POPULATION, HAS BEEN CONFIRMED THE DECISION THRESHOLD FOR DC DIAGNOSIS. 99TH PERCENTILE = 51.4 PG/ML NOTE: HIGH-SENSITIVITY TROPONIN ASSAY IS NOT INTENDED TO BE USED IN ISOLATION BUT SHOULD BE INTERPRETED IN CONJUNCTION WITH OTHER DIAGNOSTIC AND CLINICAL INFORMATION. Performing Lab: see note ML - [facility] LB Troponin I High Sensitivity Reviewed date:07/11/2024 02:45:52 PM Interpretation: Performing Lab: Notes/Report: [facility] , Troponin I High Sensitivity 9.1 4.0-51.3 pg/mL CUT-OFF POINTS HAVE BEEN ESTABLISHED BASED ON THE FOURTH UNIVERSAL DEFINITION OF MYOCARDIAL INFARCTION. THE UPPER REFERENCE LIMIT (URL) OF TROPONIN, DEFINED THE 99TH PERCENTILE OF cTnI DISTRIBUTION IN A REFERENCE POPULATION, HAS BEEN CONFIRMED THE DECISION THRESHOLD FOR DC DIAGNOSIS. 99TH PERCENTILE = 51.4 PG/ML NOTE: HIGH-SENSITIVITY TROPONIN ASSAY IS NOT INTENDED TO BE USED IN ISOLATION BUT SHOULD BE INTERPRETED IN CONJUNCTION WITH OTHER DIAGNOSTIC AND CLINICAL INFORMATION. Performing Lab: see note ML - [facility] Troponin I High Sensitivity Reviewed date:07/11/2024 02:45:52 PM Interpretation: Performing Lab: Notes/Report: [facility] , Troponin I High Sensitivity 8.4 4.0-51.3 pg/mL CUT-OFF POINTS HAVE BEEN ESTABLISHED BASED ON THE FOURTH UNIVERSAL DEFINITION OF MYOCARDIAL INFARCTION. THE UPPER REFERENCE LIMIT (URL) OF TROPONIN, DEFINED THE 99TH PERCENTILE OF cTnI DISTRIBUTION IN A REFERENCE POPULATION, HAS BEEN CONFIRMED THE DECISION THRESHOLD FOR DC DIAGNOSIS. 99TH PERCENTILE = 51.4 PG/ML NOTE: HIGH-SENSITIVITY TROPONIN ASSAY IS NOT INTENDED TO BE USED IN ISOLATION BUT SHOULD BE INTERPRETED IN CONJUNCTION WITH OTHER DIAGNOSTIC AND CLINICAL INFORMATION. Performing Lab: see note ML - [facility] Prothrombin Time INR Reviewed date:07/11/2024 02:45:52 PM Interpretation: Performing Lab: Notes/Report: [facility] , Prothrombin Time 9.9 9.0-11.6 sec INR 0.93 DESIRED INR: 2.0-3.0 CONDITIONS NOT LISTED BELOW 2.5-3.5 FOR PROSTHETIC HEART VALVE REPLACEMENT 2.5-3.5 RECURRENT THROMBOSIS Performing Lab: see note ML - [facility] PTT Reviewed date:07/11/2024 02:45:52 PM Interpretation: Performing Lab: Notes/Report: [facility] , Partial Thromboplastin Time 28.1 22.3-36.2 sec Performing Lab: see note ML - [facility] PROF CHEM 8 (BAS METB) Reviewed date:07/11/2024 02:45:52 PM Interpretation: Performing Lab: Notes/Report: [facility] , Sodium 140 136-145 mmol/L Potassium 3.3 3.5-5.1 mmol/L Chloride 103 98-107 mmol/L Carbon Dioxide 31.6 21.0-32.0 mmol/L Anion Gap 8.7 Glucose 112 74-106 mg/dL Blood Urea Nitrogen 18.0 7.0-18.0 mg/dL Creatinine 1.42 0.55-1.02 mg/dL Estimated GFR ( Candace 46 >=60 Estimated GFR (Non- Susi 38 >=60 BUN Creatinine Ratio 12.7 Calcium 9.0 8.5-10.1 mg/dL Performing Lab: see note ML - [facility] LB CBC AUTO DIFF Reviewed date:07/11/2024 02:45:52 PM Interpretation: Performing Lab: Notes/Report: [facility] , White Blood Count 8.5 4.0-11.0 [...] 3/uL Performing Lab: see note ML - [facility] LB Troponin I High Sensitivity Reviewed date:06/29/2024 06:16:08 PM Interpretation: Performing Lab: Notes/Report: [facility] , Troponin I High Sensitivity 123.2 4.0-51.3 pg/mL RESULTS CALLED TO KATHERINE MCELROY/MEGAN IN MED SURG CUT-OFF POINTS HAVE BEEN ESTABLISHED BASED ON THE FOURTH UNIVERSAL DEFINITION OF MYOCARDIAL INFARCTION. THE UPPER REFERENCE LIMIT (URL) OF TROPONIN, DEFINED THE 99TH PERCENTILE OF cTnI DISTRIBUTION IN A REFERENCE POPULATION, HAS BEEN CONFIRMED THE DECISION THRESHOLD FOR DC DIAGNOSIS. 99TH PERCENTILE = 51.4 PG/ML NOTE: HIGH-SENSITIVITY TROPONIN ASSAY IS NOT INTENDED TO BE USED IN ISOLATION BUT SHOULD BE INTERPRETED IN CONJUNCTION WITH OTHER DIAGNOSTIC AND CLINICAL INFORMATION. Performing Lab: see note ML - [facility] Reason For Referral Diagnosis 1 Pulmonary nodule (R9 1.1) Referral Organization [facility] Referring Provider First Name Amadou Referring Provider Last Name [facility] Referring Provider [facility] Referred Provider Marlon Beal Referred Provider Specialty Pulmonology Referral Priority Routine Diagnosis 1 Solitary pulmonary n odule (R91.1) Referral Organization [facility] Referring Provider First Name Amadou Referring Provider Last Name [facility] Referring Provider [facility] Referred Provider Jarocho Saldaña Referred Provider Specialty Cardiothorac ic surgeon Referral Priority Routine Diagnosis 1 Facial cellulitis (L 03.211) Referral Organization [facility] Referring Provider First Name Amadou Referring Provider Last Name [facility] Referring Provider [facility] Referred Provider Avelina Guevara Referred Provider Specialty Otolaryngolo gy Referral Priority Routine Diagnosis 1 Thrombus (I82.90) Referral Organization [facility] Referring Provider First Name Amadou Referring Provider Last Name [facility] Referring Provider [facility] Referred Provider Specialty Ear, nose an d throat surgeon Referral Priority Routine Reason [employer] OPER[employer] to ENT Diagnosis 1 Thrombus (I82.90) Referral Organization [facility] Referring Provider First Name Amadou Referring Provider Last Name [facility] [place] Referred Provider Omar Mares Referred Address [address], [place], [place],[address], Referred Provider Specialty Otolaryngolo gy General Notes Afsaneh Perla 5 10:51:41 AM >automated message sent Clinical Notes Afsaneh Perla 5 08:41:51 AM >will we see? CT report scanned in chart from 5/5/25, Lenny Valenzuela 04/02/2025 10:50:17 AM >yes, per JW Referral Priority Routine Diagnosis 1 Bakers cyst (M71.20) Referral Organization [facility] Referring Provider First Name Amadou Referring Provider Last Name Lidia Referring Provider Speciality [facility] padmini Referred Provider Umm Mejía Referred Provider Specialty Orthopedic S urgery Referral Priority Routine Medications Medication SIG (Take, Route, Frequency, Duration) Notes Start Date End Date Status Glucometer - Use as directed once daily for 365 days Diagnosis: E11.9 09/30/2023 Active SEROquel 100 MG 1 tablet at bedtime Orally Once a day for 90 days 04/20/2023 Active hydrALAZINE HCl 50 MG 1 tablet with food Orally TID for 90 days As needed 07/28/2024 Active Test Strips - Use as directed once daily for 90 days Diagnosis: E11.9 09/30/2023 Active Invokana 100 MG 1 tablet before the first meal of the day Orally Once a day for 90 days Active Isosorbide Mononitrate ER 60 MG 1 tablet Orally bid for 90 days Active Carvedilol 25 MG 1 tablet with food Orally TID for 90 days Active Clopidogrel Bisulfate 75 MG 1 tablet Orally Once a day for 90 days Active metFORMIN HCl 500 MG 1 tablet with a óscar l Orally BID for 90 days Active CPAP - auto cpap 5-15 for 365 days Active Protonix 40 MG 1 tablet Orally bid for 90 days 09/20/2023 Active CPAP Supplies -- Mask and Tubing for 365 days 08/15/2024 Active Rosuvastatin Calcium 40 MG 1 tablet Orally Once a day for 90 days Active LORazepam 1 MG 1 tablet Orally tid for 30 days 05/30/2025 Active Lancets - Use as directed once daily for 90 days Diagnosis: E11.9 09/30/2023 Active Aspirin 81 MG 1 tablet Orally Once a day Active Magnesium Oxide 400 MG 1 tablet with mingo d Orally Once a day for 90 days 03/30/2025 Active Autopap (A-PAP) - - Apply mask to face using face mask daily auto cpap 5-15 for 365 days 04/21/2023 Active Immunizations Vaccine Route Administration Date Status Comme nts Flu, Flucelvax (13627) 2 yrs +, single-dose syringe (7485-1253) Unknown 11/07/2021 Administered SARS-COV-2 (COVID 19 Pfizer [...] Problem Status W/U Status Risk Notes Problem [id number] Type 2 diabetes mellitus without complications (E11.9) Active confirmed Problem Hypomagnesemia (908833615) Hypomagnesemia (E83.42) Active confirmed Problem Solitary pulmonary nodule (702241048) Solitary pulmonary nodule (R91.1) Active confirmed Problem Hypertension (98052803) Hypertension (I10) Active confirmed Problem Gastroesophageal reflux disease (562228882) GERD (gastroesophageal reflux disease) (K21.9) Active confirmed Problem Hypertension (24632508) HTN (hypertension) (I10) Active confirmed Problem Anxiety (52181767) Anxiety (F41.9) Active confi rmed Problem Coronary artery disease (82545948) Coronary artery disease (I25.10) Active confirmed Problem Left ventricular hypertrophy (35587685) Left ventricular hypertrophy (I51.7) Active confirmed Problem Carotid artery stenosis (54004222) Carotid artery stenosis (I65.29) Active confirmed Problem Sleep apnea (96880554) Sleep apnea (G47.30) Active confirmed Problem Obstructive sleep apnea (72464858) Obstructive sleep apnea (G47.33) Active confirmed Problem Insomnia (122301559) Insomnia (G47.00) Active confirmed Problem Transient ischemic attack (172441987) TIA (transient ischemic attack) (G45.9) Active confirmed Problem Migraine (93562399) Migraine (G43.909) Active confirmed Problem Generalized anxiety disorder (34860698) ALFONSO (generalized anxiety disorder) (F41.1) Active confirmed Problem Kidney stone (60030652) Kidney stones (N20.0) Active confirmed Problem Pulmonary nodule (229926661) Pulmonary nodule (R91.1) Active confirmed Problem Murmur (329707784) Murmur (R01.1) Active confir med Problem Diarrhea (99967913) Diarrhea (R19.7) Active con firmed Problem Edema (904421993) Edema leg (R60.0) Active conf irmed Problem Solitary nodule of lung (895369550) Lung nodule (R91.1) Active confirmed Problem Allergic conjunctivitis (527660008) Allergic conjunctivitis (H10.10) Active confirmed Problem Acquired hypothyroidism (198867804) Acquired hypothyroidism (E03.9) Active confirmed Problem Panic disorder (445286732) Panic disorder (F41.0) Active confirmed Problem Hemorrhoids (75968648) Hemorrhoids (K64.9) Active confirmed Problem Thrush (99736118) Thrush (B37.0) Active confirm ed Problem Inflamed seborrheic keratosis (518848100) Seborrheic keratoses, inflamed (L82.0) Active confirmed Problem Acute non-ST segment elevation myocardial infarction (147772475) NSTEMI (non-ST elevated myocardial infarction) (I21.4) Active confirmed Problem High blood pressure (98895234) High blood pressure (I10) Active confirmed Problem Cellulitis and abscess of face (701995573) Facial cellulitis (L03.211) Active confirmed Problem Skin sensation disturbance (36867881) Bilateral leg paresthesia (R20.2) Active confirmed Problem Ex-tobacco user (finding) (249616154) History of tobacco abuse (Z87.891) Active confirmed Problem Derangement of knee (27251612) Internal derangement of knee, left (M23.92) Active confirmed Problem Recurrent major depression (84042789) Depression, major, recurrent (F33.9) Active confirmed Problem Mass of left adrenal gland (52142846542608562) Left adrenal mass (E27.9) Active confirmed Problem Paresthesia of upper limb (56613661) Paresthesia of upper limb (R20.2) Active confirmed Problem Hypertensive urgency (528701377) Hypertensive urgency (I16.0) Active confirmed Problem Hypertensive emergency (205585945984501) Hypertensive emergency (I16.1) Active confirmed Problem Derangement of knee (35703288) Knee internal derangement, unspecified laterality (M23.90) Active confirmed Problem MRI Scan Abnormal (924788137) Abnormal MRI (R93.89) Active confirmed Problem Disease caused by Severe acute respiratory syndrome coronavirus 2 (disorder) (537248390) COVID-19 virus infection (U07.1) Active confirmed Vital Signs Heart Rate 59 /min 06/27/2024 Temperature 96.9 degrees Fahrenheit 06/27/2024 Respiratory Rate 18 /min 06/27/2024 Oximetry 96 % 06/27/2024 Blood pressure diastolic 70 mm Hg 05/11/2025 Height 63 in 05/11/2025 Blood pressure systolic 126 mm Hg 05/11/2025 Weight 197.2 lbs 05/11/2025 BMI 34.93 kg/m2 05/11/2025 Procedures Procedure Date Ordered Date Performed Result Body Sit e PFT (42960, 98569, 58797) 06/27/2024 N/A Sleep Study: Retitration BIPAP/CPAP 08/04/2024 N/A Encounters Encounter Location Date Provider Diagnosis [facility] [address] [place] [address] 03/15/2025 Amadou Hoy Facial cellulitis L03.211 [facility] [place] [address] [place] [address] 04/03/2025 Christopher Vishnu Nasal congestion R09.81 ; Other specified disorders of nose and nasal sinuses J34.89 ; SURESH (obstructive sleep apnea) G47.33 and Cellulitis L03.90 [facility] [address] [place] [address] 06/27/2024 Marlon Beal Solitary pulmonary nodule R91.1 ; History of tobacco abuse Z87.891 and Left adrenal mass E27.9 [facility] [address] [place] [address] 06/13/2024 Amadou Hoy TIA (transient ischemic attack) G45.9 ; Hypertension I10 and Anxiety F41.9 [facility] [address] [place] [address] 03/30/2025 Amadou Hoy Hypomagnesemia E83.4 2 ; Thrush B37.0 and Diarrhea R19.7 [facility] [address] [place] [address] 04/09/2025 Amadou Hoy Hypertension I10 ; Diabetes mellitus E11.9 ; Diarrhea R19.7 and Knee pain M25.569 [facility] [address] [place] [address] 04/25/2025 Amadou Hoy Knee internal derangement, unspecified laterality M23.90 and Internal derangement of knee, left M23.92 [facility] [address] [place] [address] 05/11/2025 Amadou Hoy Hypertension I10 [address] [address] 07/05/2024 Amadou Hoy Hypertension I10 ; Left ventricular hypertrophy I51.7 ; Type 2 diabetes mellitus without complications E11.9 ; Hypertensive emergency I16.1 ; Coronary artery disease I25.10 and Sleep apnea G47.30 [facility] [address] [place] [address] 07/19/2024 Amadou Hoy TIA (transient ischemic attack) G45.9 and Hypertension I10 [address] [place] [address] 07/28/2024 Amadou Hoy Hypertension I10 [address] [place] [address] 08/04/2024 Amadou Hoy Hypertension I10 and Sleep apnea G47.30 [facility] [address] [place] [address] 09/27/2024 Amadou Hoy Hypertension I10 [address] [address] 11/20/2024 Amadou Hoy Hypertension I10 and Left ventricular hypertrophy I51.7 [facility] [address] [place] [address] 03/20/2025 Amadou Hoy Facial cellulitis L03.211 [address] [place] [facility] [place] [address] 05/29/2025 Amadou Hoy Hypomagnesemia E83.4 2 [facility] [address] [place] [facility] [place] [address] 05/30/2025 Amadou Hoy Insomnia G47.00 [facility] [address] [place] [facility] [place] [address] 06/05/2025 Amadou Hoy Abnormal thyroid blo od test R79.89 [facility] [address] [place] [facility] [place] [address] 04/19/2025 Amadou Hoy Hypertension I10 ; Diabetes mellitus E11.9 ; Hypokalemia E87.6 and Shortness of breath R06.02 [facility] [address] [place] [facility] [place] [address] 04/24/2025 Amadou Hoy [facility] [address] [place] [facility] [place] [address] 05/10/2025 Amadou Hoy [facility] [address] [place] [facility] [place] [address] 05/11/2025 Amadou Hoy [facility] [address] [place] [facility] [place] [address] 05/14/2025 Amadou Hoy Bakers cyst M71.20 a nd Abnormal MRI R93.89 [facility] [address] [place] [facility] [place] [address] 05/20/2025 Amadou Hoy [facility] [address] [place] [facility] [place] [address] 03/26/2025 Amadou Hoy Hypomagnesemia E83.4 2 and Hypertensive urgency I16.0 [facility] [address] [place] [facility] [place] [address] 03/29/2025 Amadou Hoy Insomnia G47.00 [facility] [address] [place] [facility] [place] [address] 03/30/2025 Amadou Hoy [facility] [address] [place] [facility] [place] [address] 03/30/2025 Amadou Hoy Thrombus I82.90 [facility] [address] [place] [facility] [place] [address] 04/02/2025 Amadou Hoy Low potassium syndro me E87.6 [facility] [address] [place] [address] 04/09/2025 Amadou Hoy Facial cellulitis L03.211 and Hypomagnesemia E83.42 [facility] [address] [place] [address] 11/26/2024 Amadou Hoy [facility] [address] [place] [address] 12/25/2024 Amadou Hoy Insomnia G47.00 [facility] [address] [place] [address] 01/30/2025 Amadou Hoy Insomnia G47.00 [facility] [address] [place] [address] 02/08/2025 Amadou Hoy [facility] [address] [place] [facility] [place] [address] 03/23/2025 Amadou Hoy Facial cellulitis L03.211 [address] [place] [facility] [place] [address] 03/26/2025 Amadou Hoy Facial cellulitis L03.211 [facility] [address] [place] [address] 09/29/2024 Amadou Hoy [facility] [address] [place] [facility] [place] [address] 10/17/2024 Amadou Hoy Insomnia G47.00 [facility] [address] [place] [address] 10/27/2024 Amadou Hoy Hypertension I10 and Well adult Z00.00 [facility] [address] [place] [address] 11/08/2024 Amadou Hoy [facility] [address] [place] [address] 11/13/2024 Amadou Hoy [facility] [address] [place] [address] 11/16/2024 Amadou Hoy Insomnia G47.00 [facility] [address] [facility] [place] [address] 07/31/2024 Amadou Hoy [facility] [address] [facility] [place] [address] 08/14/2024 Amadou Hoy [facility] [address] [place] [facility] [place] [address] 08/15/2024 Amadou Hoy Insomnia G47.00 [facility] [address] [facility] [place] [address] 08/15/2024 Amadou Hoy Obstructive sleep apnea G47.33 [facility] [address] [place] [facility] [place] [address] 08/17/2024 Amadou Hoy [facility] [address] [place] [facility] [place] [address] 09/18/2024 Kaelyn Francine Insomnia G47.00 [facility] [address] [place] [facility] [place] [address] 06/29/2024 Amadou Hoy [facility] [address] [place] [facility] [place] [address] 07/05/2024 Amadou Alvesy Solitary pulmonary nodule R91.1 [facility] [address] [facility] [place] [address] 07/05/2024 Amadou Hoy Well adult Z00.00 [facility] [address] [facility] [place] [address] 07/06/2024 Amadou Hoy Type 2 diabetes mellitus without complications E11.9 ; Hypertension I10 and Well adult Z00.00 [facility] [address] [place] [facility] [place] [address] 07/13/2024 Amadou Hoy Hypertension I10 [facility] [address] [place] [facility] [place] [address] 07/18/2024 Amadou Hoy [facility] [facility] [address] [place] [address] 06/13/2024 Amadou Moran [facility] [address] [place] [place] [address] 06/18/2024 Amadou Moran Well adult Z00.00 [facility] [address] [place] [address] 2024 Amadou Moran [facility] [address] [place] [address] 06/21/2024 Amadou Moran Pulmonary nodule R91 .1 [facility] [place] [address] [place] [address] 06/26/2024 [facility] [address] [place] [address] 06/27/2024 [facility] [address] [place] [address] 06/07/2024 Amadou Moran Assessments Encounter Date Diagnosis (ICD Code) Assessment [...] derangement of knee, left (ICD-10 - M23.92) 05/11/2025 Hypertension (ICD-10 - I10) 06/18/2024 Well adult (ICD-10 - Z00.00) 06/21/2024 [...] Utilizing a solitary pulmonary nodule risk calculator ([facility] Model), risk of malignancy of the nodule [...] time. As she was checking out, my front end specialist staff overheard the patient speaking with another [...] I10) 04/19/2025 Diabetes mellitus (ICD-10 - E11.9) 05/14/2025 Bakers cyst (ICD-10 - M71.20) 05/14/2025 Abnormal MRI (ICD-10 - R93.89) 05/29/2025 Hypomagnesemia (ICD-10 - E83.42) 05/30/2025 Insomnia (ICD-10 - G47.00) 06/05/2025 Abnormal thyroid blood test (ICD-10 - R79.89) 04/19/2025 Hypokalemia (ICD-10 - E87.6) 04/09/2025 Hypomagnesemia [...] Nuclear Test 04/28/2024 CMP (COMPLETE METABOLIC PANEL) 3 CULTURE, STOOL 03/30/2025 CULTURE, STOOL 04/09/2025 REDUCING [...] Contrast 03/23/2025 CBC W/AUTO DIFF 04/19/2025 PFT (67005, 00299, 45861) 06/27/2024 Covid-19 PCR ([facility]VD[facility]) 08/13/2023 GLYCOHEMOGLOBIN A1C 04/19/2025 MRI KNEE LT WO CON 04/25/[address] SKULL BASE MID THIGH 04/28/2024 THYROID PANEL (T4/TSH/FREE T3) 3 THYROID PANEL (T4/TSH/FREE T3) 5 THYROID PANEL (T4/TSH/FREE T3) 5 Lipid Panel 04/19/2025 Insurance Providers Payer Name Payer Address Payer Phone Subscriber Number Group Number Insured Name Patient Relationship to Insured Coverage Start Date Coverage End Date [employer] [place] [employer] [address] [address] [place] [address] [phone] [id number] [id number] Aby López Self - patient is the insured 3 [...] reflux Heart attack Surgical History Surgery Date(Month/Year) Hysterectomy 1998 Tubal Ligation 1988 Coronary angiography 06/30/24 Angioplasty with stent placement stent kidney stone appendectomy cholecystectomy Hospitalization History Reason Date(Month/Year) Hypertension-TBH 03/2024 chest pain 05/15
--- NOTE | 2025-06-06 20:01 | ECG_ITS ---
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
--- OUTSIDE RECORDS SUMMARY | 2025-06-06 20:03 | XMS_ITS | CCD ---
Author Organization [facility] CliniSywv Care Team Providers Care Crm Dynamics Developer Name Role Phone Kendra Moran Primary Care Physician [phone] Umm LANDON Attending Unavailable NILL, Umm Michael [...] Unavailable Kendra Moran MD Primary Care Provider [phone] NONA FUCHS Referring Unavailable NONA FUCHS Referring Unavailable BIJAN MITCHELL Attending Unavailable FENG CHRISTIE Attending Unavailable MOUKARBEL, GOMEZ Attending Unavailable TOFLINSKI, FEDERICA Referring Unavailable KATKOJOSE Referring Unavailable HORANI, NONA Admitting Unavailable TAO NASSAR Attending Unavailable HERMINIA JULIAN Attending Unavailable JODEH, FENG Referring Unavailable OMBALLI, RICHA Referring Unavailable OMBALLI, JEFFREYAMED Referring Unavailable MOUKARBEL, GOMEZ Attending Unavailable JOJAKY, FENG Attending Unavailable MOUKARBEL, GOMEZ Attending Unavailable TOFLINSKI, FEDERICA Referring Unavailable JODEMalcolm, FENG Attending Unavailable MACMESERET Referring Unavailable MOUKARBEL, GOMEZ Attending Unavailable JODEH, FENG Attending Unavailable JODEH, FENG Attending Unavailable OMBALLI, RICHA Attending Unavailable PIRKL, FELECIA Referring Unavailable HOY, KENDRA Referring Unavailable HORANI, NONA Admitting Unavailable HORANI, NONA Attending Unavailable HORANI, NONA Referring Unavailable BIJAN MITCHELL Attending Unavailable MOUKARBEL, GOMEZ Attending Unavailable OMBALLI, RICHA Attending Unavailable HERMINIA JULIAN Referring Unavailable HORANI, NONA Referring Unavailable Kendra Moran MD Primary Care Provider [phone] Roxanne Jackson APRN Attending Provider Elie Jackson DO Attending Provider Lidia, Kendra Jina Primary Care Unavailable Elie Jackson Attending Unavailable Elie Jackson Admitting Unavailable HOY, KENDRA M Referring Unavailable HOY, KENDRA M Primary Care Unavailable HOY, KENDRA M Referring Unavailable HOY, KENDRA M Primary Care Unavailable FARZANA ELY Attending Unavailable HOY, KENDRA M Referring Unavailable HOY, KENDRA M Primary Care Unavailable AFSANEH JACOME Attending Unavailable HOY, KENDRA M Referring Unavailable HOY, KENDRA M Primary Care Unavailable Allergies Allergy Classification Reported Allergen(s) Allergy Type Date of Onset Reaction(s) Facility (1 source) No Known Medication Allergies; Translations: [No Known Medication Allergies] Propensity to adverse reactions (disorder) [facility] Repository (5 sources) ALPRAZolam; Translations: [ALPRAZOLAM] Drug Allergy 4 Abnormal Behavior [facility] Repository (9 sources) amLODIPine; Translations: [AMLODIPINE] Drug Allergy 4 Other (See Comments) [facility] Repository (9 sources) Lisinopril; Translations: [LISINOPRIL] Drug Allergy 4 Cough [facility] Repository (4 sources) LORazepam; Translations: [lorazepam] Drug Allergy 5 Unknown Reaction [facility] Medications Current Medications Medication Drug Class(es) [...] therapy take 1 tablet by dolores th three [...] system (3 sources) Cholinergic Nicotinic Agonist Start: apply 1 dose transdermal route every twenty-four [...] myocardial infarction] Onset: 4 Chronic Anxiety disorders (10 sources) Anxiety; Translations: [Panic disorder] Onset: 2 08-02-2019 Chronic Comment on above: Problem List clean-u p per request of Phys. 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 CURRENT USE OF ASPIRIN] Onset: 3 Episodic Other aftercare (1 source) Other halfway (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 therapy; Translations: [OTH SKILLED NURSING CURRENT DRUG THERAPY] Onset: 3 Episodic Other [...] By: Asad White on 05-21-2025 Study report [facility] [address] [place] [address] XRay Report Signed Patient: Aby Madrigal MR#: [id number] : 1965 Acct:[id number] Age/Sex: 59 / F ADM Date: 5 [place] [facility] [place] Type[place] [facility] Attending Dr: Elie Jackson DO Copies to: Elie Jackson DO~ Ordering Provider: Elie Jackson DO Date of Service: 05/21/25 XR/XR knee LT 4V*: M25.562 - Pain in left knee ([id number]) XR/XR knee RT 2V: M25.562 - Pain [...] White M.D. 05/21/2025 7:01 PM Dictation Location: RADIO-PC-20 Transcribed By: HIMA 05/21/251900 Dictated By: Marcell White DO 05/21/251858 Signed By: 05/21/251900 [facility] XR knee LT 4V*on 05-21-2025 XR knee LT 4V* [facility] [address] [place] [address] XRay Report Signed Patient: Aby Madrigal MR#: [id number] : 1965 Acct:[id number] Age/Sex: 59 / F ADM Date: 05/21/25 [place] [facility] [place] [facility] Attending Dr: Elie Jackson DO Copies to: Elie Jackson DO Ordering Provider: Elie Jackson DO Date of Service: 05/21/25 XR/XR knee LT 4V*: M25.562 - Pain in left knee ([id number]) XR/XR knee RT 2V: M25.562 - Pain [...] White M.D. 05/21/2025 7:01 PM Dictation Location: RADIO-PC-20 Transcribed By: HIMA 05/21/251900 Dictated By: Marcell White DO 05/21/251858 Signed By: 05/21/251900 Normal [facility] Office Visiton 05-14-2025 Follow-up visit [id number] Aby Madrigal 1965 F Date Provider Department Center 05/14/2025 Octavio-GOMEZ SPENCE RIAZ [place] Family History Problem Relation Age of Onset Lung cancer Mother Accidental Father Lung cancer Sister Family Status - Relation Status Age at Mother Father Sister Brother Alive Level of Service:66616 CT OFFICE/OUTPATIENT ESTABLISHED MOD MDM 30 MIN [facility] 37on 04-23-2025 37 1. Change carvedilol to 1.5 tablets twice daily. 2. Start taking spironolactone half tablet once daily. 3. You can stop clopidogrel in July 2025. [facility] Office Visiton 04-23-2025 Follow-up visit [id number] Aby Madrigal Cristina 1965 F Date Provider Department Center 04/23/2025 Octavio-GOMEZ SPENCE RIAZ [facility] Family History Problem Relation Age of Onset Lung cancer Mother Accidental Father Lung cancer Sister Family Status - Relation Status Age at Mother Father Sister Brother Alive Level of Service:97551 CT OFFICE/OUTPATIENT ESTABLISHED MOD MDM 30 MIN [facility] Orders Onlyon 04-20-2025 Orders Only [id number] Aby Madrigal Cristina 1965 Date Provider Department Center 04/20/2025 [id number], CARYL RIAZ [facility] Family History Problem Relation Age of Onset Lung cancer Mother Accidental Father Lung cancer Sister Family Status - Relation Status Age at Mother Father Sister Brother Alive [facility] 37on 04-10-2025 37 It was good [...] can see where your potassium levels are. [facility] Follow-Upon 04-10-2025 Follow-Up [id number] Aby Madrigal Cristina 1965 F Date Provider Department Center 04/10/2025 [id number] BOWMAN [facility] ENDOCR [facility] Family History Problem Relation Age of Onset Lung cancer Mother Accidental Father Lung cancer Sister Family Status - Relation Status Age at Mother Father Sister Brother Alive Level of Service:78313 CT OFFICE/OUTPATIENT ESTABLISHED MOD MDM 30 MIN Reason for Visit and Comments: Adrenal Problem [420] - Follow up [facility] Influenza virus B Ag [Presen ce] in Upper respiratory specimen by Rapid immunoassayon 03-03-2025 FLUBV Ag IA.rapid Ql (Nph) Negative [facility] No Panel Informationon 03-03 Influenza Type A (Rapid) Negative [facility] POC SARS CoV-2 Antigen Negative [facility] 29on 03-02-2025 29 Addended by: FENG CHRISTIE on: 03/02/2025 09:34 AM Modules accepted: Orders [facility] 3603-02-2025 36 Called patient over the phone at 9:10 AM - I have reviewed results from adrenal venous sampling performed on 02/07/2025 at [facility]. Patient met criteria for selectivity index and [...] primary aldosteronism will proceed to surgical evaluation [facility] Orders Onlyon 03-02-2025 Orders Only [id number] AntoinettedamianAby spence Cristina 1965 F Date Provider Department Center 03/02/2025 [id number], WADE [facility] ENDOCR [facility] Family History Problem Relation Age of Onset Lung cancer Mother Accidental Father Lung cancer Sister Family Status - Relation Status Age at Mother Father Sister Brother Alive [facility] 36on 02-28-2025 36 Results routed to you. [facility] Please call patient and let her know that I've requested the test results from [facility] Ill be able to discuss the results with her tomorrow Thank you [facility] 36on 02-26-2025 36 Patient called regarding IR venography she had done 02/07. Requesting to discuss results and how she should follow up per Dr. Christie Normal [facility] Office Visiton 02-26-2025 Follow-up visit [id number] Aby Madrigal 1965 F Date Provider Department Center 02/26/2025 Octavio-GOMEZ SPENCE [facility] [place] Family History Problem Relation Age of Onset Lung cancer Mother Accidental Father Lung cancer Sister Family Status - Relation Status Age at Mother Father Sister Brother Alive Level of Service:01538 CT OFFICE/OUTPATIENT ESTABLISHED LOW MDM 20 MIN Normal [facility] Telephoneon 02-26-2025 Telephone [id number] Aby Madrigal 1965 Date Provider Department Center 02/26/2025 JESSY MATSON [facility] NEPH [facility] Family History Problem Relation Age of Onset Lung cancer Mother Accidental Father Lung cancer Sister Family Status - Relation Status Age at Mother Father Sister Brother Alive [facility] Cortisol [Mass/Vol]on 2024 CORTISOL 5.2 ug/dL Normal [facility] Comment on above: Result Comment: Due to the diurnal variation of cortisol levels in normal subjects, all cortisol measurements should be referenced to the time of day of sample collection. AM Cortisol Age>=6 6.7-22.4 ug/dL PM Cortisol Age>=6 <10 ug/dL Performed By: #### 2 143-6 #### [facility] ([id number]) [address] [place] [address], [address] [place] [address] CORTISOL 5.2 ug/dL Normal [facility] Comment on above: Result Comment: Due to the diurnal variation of cortisol levels in normal subjects, all cortisol measurements should be referenced to the time of day of sample collection. AM Cortisol Age>=6 6.7-22.4 ug/dL PM Cortisol Age>=6 <10 ug/dL Performed By: #### 2 143-6 #### [facility] ([id number]) [address], [address] [place] [address] CORTISOL 10.9 ug/dL Normal [facility] Comment on above: Result Comment: Due to the diurnal variation of cortisol levels in normal subjects, all cortisol measurements should be referenced to the time of day of sample collection. AM Cortisol Age>=6 6.7-22.4 ug/dL PM Cortisol Age>=6 <10 ug/dL Performed By: #### 2 143-6 #### [facility] ([id number]) [address], [address] [place] [address] CORTISOL 11.1 ug/dL Normal [facility] Comment on above: Result Comment: Due to the diurnal variation of cortisol levels in normal subjects, all cortisol measurements should be referenced to the time of day of sample collection. AM Cortisol Age>=6 6.7-22.4 ug/dL PM Cortisol Age>=6 <10 ug/dL Performed By: #### 2 143-6 #### [facility] ([id number]) [address], [address] [place] [address] CORTISOL 5.7 ug/dL Normal [facility] Comment on above: Result Comment: Due to the diurnal variation of cortisol levels in normal subjects, all cortisol measurements should be referenced to the time of day of sample collection. AM Cortisol Age>=6 6.7-22.4 ug/dL PM Cortisol Age>=6 <10 ug/dL Performed By: #### 2 143-6 #### [facility] ([id number]) [address], [address] [place] [address] CORTISOL 14.3 ug/dL Normal [facility] Comment on above: Result Comment: Due to the diurnal variation of cortisol levels in normal subjects, all cortisol measurements should be referenced to the time of day of sample collection. AM Cortisol Age>=6 6.7-22.4 ug/dL PM Cortisol Age>=6 <10 ug/dL Performed By: #### 2 143-6 #### [facility] ([id number]) [address], [address] [place] [address] [facility] ORDERon 025 TEST NAME AIVC INFERIOR VENA CAVA Normal [facility] Comment on above: Result Comment: Cody ected on 02/07 AT 1204: Previously reported as INFERIOR VENA CAVA TEST RESULT SEE COMMENTS 02/10/2025 12:12 AM Normal [facility] Comment on above: Result Comment: NOTE Test Result Flag Unit RefValue Aldosterone, IVC <4.0 ng/dL Not applicable ADDITIONAL INFORMATION This test was developed and its performance characteristics determined by [facility] in a manner consistent with CLIA requirements. This test has not been cleared or approved by the U.S. Food and Drug Administration. Test Performed by: [facility] - [address] [address] Human Resources Receptionist: Shawanda Jimenez Ph.D.; CLIA# [id number] Result Comment: NOTE Test Result Flag Unit RefValue Aldosterone, LAV 32 ng/dL Not applicable ADDITIONAL INFORMATION This test was developed and its performance characteristics determined by [facility] in a manner consistent with CLIA requirements. This test has not been cleared or approved by the U.S. Food and Drug Administration. Test Performed by: [place] [address] Human Resources Receptionist: Shawanda Jimenez Ph.D.; CLIA# [id number] Result Comment: NOTE Test Result Flag Unit RefValue Aldosterone, LAV 28 ng/dL Not applicable ADDITIONAL INFORMATION This test was developed and its performance characteristics determined by [facility] in a manner consistent with CLIA requirements. This test has not been cleared or approved by the U.S. Food and Drug Administration. Test Performed by: [place] [address] Human Resources Receptionist: Shawanda Jimenez Ph.D.; CLIA# [id number] Result Comment: NOTE Test Result Flag Unit RefValue Aldosterone, KELLEY <4.0 ng/dL Not applicable ADDITIONAL INFORMATION This test was developed and its performance characteristics determined by [facility] in a manner consistent with CLIA requirements. This test has not been cleared or approved by the U.S. Food and Drug Administration. Test Performed by: [place] [address] Human Resources Receptionist: Shawanda Jimenez Ph.D.; CLIA# [id number] Result Comment: NOTE Test Result Flag Unit RefValue Aldosterone, KELLEY 74 ng/dL Not applicable ADDITIONAL INFORMATION This test was developed and its performance characteristics determined by [facility] in a manner consistent with CLIA requirements. This test has not been cleared or approved by the U.S. Food and Drug Administration. Test Performed by: [place] [address] Human Resources Receptionist: Shawanda Jimenez Ph.D.; CLIA# [id number] TEST NAME ALAV LEFT ADRENAL Normal [facility] TEST NAME ALAV LEFT ADRENAL Normal [facility] TEST NAME ARAV RIGHT ADRENAL Normal [facility] TEST NAME ARAV RIGHT ADRENAL Normal [facility] Telephoneon 01-18-2025 Telephone [id number] Aby Madrigal 1965 F Date Provider Department Center 01/18/2025 [id number], WADE [facility] ENDOCR [facility] Family History Problem Relation Age of Onset Lung cancer Mother Accidental Father Lung cancer Sister Family Status - Relation Status Age at Mother Father Sister Brother Alive Normal [facility] Follow-Upon 01-09-2025 Follow-Up [id number] Aby Madrigal 1965 F Date Provider Department [place] 01/09/2025 [id number] BOWMAN [facility] Family History Problem Relation Age of Onset Lung cancer Mother No Known Problems Father Lung cancer Sister Family Status - Relation Status Age at Mother Father Sister Level of Service:27508 CT OFFICE/OUTPATIENT ESTABLISHED LOW MDM 20 MIN [facility] 36on 01-04-2025 36 Called patient's daughter [...] time. Melanie thanked me for the call [facility] 36on 01-03-2025 36 Voicemail. Patient's daughter called in, she thought Dr. Christie was going to order testing where they go in through the groin to see which kidney is dumping off excess hormones, she would like a call back. [facility] Telephoneon 01-03-2025 Telephone [id number] Aby Madrigal 1965 F Date Provider Department [place] 01/03/2025 [id number] BOWMAN [facility] Family History Problem Relation Age of Onset Lung cancer Mother No Known Problems Father Lung cancer Sister Family Status - Relation Status Age at Mother Father Sister [facility] ALDOSTERONEon 01-02-2025 ALDOSTERONE (NG/DL) IN SER/PLAS 7.3 ng/dL [facility] Comment on above: Result Comment: INTE [...] reference intervals for this test in the [facility] Test Directory ([employer] Performed By: [facility] [address] [place] [address] Foundation Maker: Navneet Simeon MD, PhD CLIA Number: [id number] Performed By: #### L [id number] #### [facility] ([facility]) [address] [place] [address] ALDOSTERONE (NG/DL) IN SER/PLAS 14.2 ng/dL Normal [facility] Comment on above: Result Comment: INTE [...] reference intervals for this test in the [facility] Test Directory ([employer] Performed By: [facility] [address] [place] [address] Foundation Maker: Navneet Simeon MD, PhD CLIA Number: [id number] Performed By: #### L [id number] #### [facility] ([facility]) [address] [place] [address] CORTISOLon 01-02-2025 CORTISOL (UG/DL) IN SER/PLAS 3.6 ug/dL Normal 0-9 [facility] Comment on above: Performed By: #### L [id number] #### [facility] ([facility]) [address] [place] [address] CORTISOL (UG/DL) IN SER/PLAS 9.0 ug/dL Normal 6-23 [facility] Comment on above: Performed By: #### L AB320 #### [facility] ([facility]) [address] [place] [address] NURSNOTEon 01-02-2025 NURSNOTE T-2=9195, at this ti me VS taken, IV [...] pt up to BR and released. Normal [facility] POTASSIUMon 01-02-2025 Potassium [Moles/Vol] 3.9 mmol/L Normal 3.5-5.1 [facility] Comment on above: Performed By: #### L AB114 ####[facility] ([facility])[address] [place] [address] Potassium [Moles/Vol] 4.0 mmol/L Normal 3.5-5.1 [facility] Comment on above: Performed By: #### L AB320 #### [facility] ([facility]) [address] [place] [address] RENIN ACTIVITYon 01-02-2025 RENIN ACTIVITY <0.1 Normal [facility] Comment on above: Result Comment: INTE RPRETIVE INFORMATION: Renin Activity Adult, Normal sodium diet: Supine ................. 0.2-1.6 ng/mL/hr Upright ................ 0.5-4.0 ng/mL/hr Children, Normal sodium diet, Supine: [place] (1-7 days) ..... 2.0-35.0 ng/mL/hr Cord blood [...] developed and its performance characteristics determined by [facility]. It has not been cleared or approved by the US Food and Drug Administration. This test was performed in a CLIA certified laboratory and is intended for clinical purposes. Performed By: [facility] [address] [place] [address] Foundation Maker: Navneet Simeon MD, PhD CLIA Number: [id number] Performed By: #### L [id number] #### [facility] ([facility]) [address] [place] [address] RENIN ACTIVITY <0.1 Normal [facility] Comment on above: Result Comment: INTE RPRETIVE INFORMATION: Renin Activity Adult, Normal sodium diet: Supine ................. 0.2-1.6 ng/mL/hr Upright ................ 0.5-4.0 ng/mL/hr Children, Normal sodium diet, Supine: [place] (1-7 days) ..... 2.0-35.0 ng/mL/hr Cord blood [...] developed and its performance characteristics determined by [facility]. It has not been cleared or approved by the US Food and Drug Administration. This test was performed in a CLIA certified laboratory and is intended for clinical purposes. Performed By: [facility] [address] [place] [address] Foundation Maker: Navneet Simeon MD, PhD CLIA Number: [id number] Performed By: #### L [id number] #### [facility] (BEAKER) [address] [place] [address] Orders Onlyon 01-01-2025 Orders Only [id number] Strausbaugh,Aby S 1965 F Date Provider Department Center 01/01/2025 [id number] BLACKMAN [facility] 2A Second Fl Family History Problem Relation Age of Onset Lung cancer Mother No Known Problems Father Lung cancer Sister Family Status - Relation Status Age at Mother Father Sister Normal [facility] Orders Only [id number] Strausbaugh,Aby S 1965 F Date Provider Department Center 01/01/2025 [id number] SALMON [facility] 2A Second Fl Family History Problem Relation Age of Onset Lung cancer Mother No Known Problems Father Lung cancer Sister Family Status - Relation Status Age at Mother Father Sister Normal [facility] Orders Onlyon 12-26-2024 Orders Only [id number] Strausbaugh,Aby S 1965 F Date Provider Department Center 12/26/2024 1623DAX WILKERSON [facility] 2A Second Fl Family History Problem Relation Age of Onset Lung cancer Mother No Known Problems Father Lung cancer Sister Family Status - Relation Status Age at Mother Father Sister Normal [facility] Orders Only [id number] Strausbaugh,Aby S 1965 F Date Provider Department Center 12/26/2024 [id number] GRIDER [facility] 2A Second Fl Family History Problem Relation Age of Onset Lung cancer Mother No Known Problems Father Lung cancer Sister Family Status - Relation Status Age at Mother Father Sister Normal [facility] Orders Only [id number] Strausbaugh,Aby S 1965 F Date Provider Department Center 12/26/2024 [id number] LUNSFORD [facility] 2A Second Fl Family History Problem Relation Age of Onset Lung cancer Mother No Known Problems Father Lung cancer Sister Family Status - Relation Status Age at Mother Father Sister Normal [facility] 36on 12-25-2024 36 Patient has not hear d from the [facility] about scheduling this, she is going to reach out to them directly, but could someone reach out to the [facility] about what's going on? Normal [facility] Orders Onlyon 12-25-2024 Orders Only [id number] Strausbaugh,Aby S 1965 F Date Provider Department Center 12/25/2024 1759-GIBSON GARCIA [facility] 2A Second Fl Family History Problem Relation Age of Onset Lung cancer Mother No Known Problems Father Lung cancer Sister Family Status - Relation Status Age at Mother Father Sister Normal [facility] Orders Only [id number] Sanjana Madrigalty S 1965 F Date Provider Department Center 12/25/2024 190-JOSE PRICE INF [facility] Family History Problem Relation Age of Onset Lung cancer Mother No Known Problems Father Lung cancer Sister Family Status - Relation Status Age at Mother Father Sister Normal [facility] 36on 12-12-2024 36 Antonio I signed the orders for saline infusion test back on Oct 12 (its a Therapy Plan) Can we call the [facility] and ask what more do they need to get the patient scheduled thanks [facility] 36on 12-08-2024 36 Patient had not hear d from the [facility] about scheduling a Saline Infusion Test, when I look into the chart, I cannot find any orders [facility] Telephoneon 12-08-2024 Telephone [id number] Sanjana Madrigalty S 1965 F Date Provider Department Center 12/08/2024 [id number], [facility] ENDOCR [facility] Family History Problem Relation Age of Onset Lung cancer Mother No Known Problems Father Lung cancer Sister Family Status - Relation Status Age at Mother Father Sister Normal [facility] Abstracton 11-21-2024 Abstract [id number] Sanjana Madrigalty S 1965 F Date Provider Department Center 11/21/[id number]-CPORAP-SJYDARA CARTER ONC DCC Family History Problem Relation Age of Onset Lung cancer Mother No Known Problems Father Lung cancer Sister Family Status - Relation Status Age at Mother Father Sister Normal [facility] CT CHEST WO IV CONTRASTon CT [...] Marlon Green MD. 5 Invalid Interpretation Code [facility] Office Visiton 10-26-2024 Follow-up visit [id number] Aby Madrigal 1965 F Date Provider Department Center 10/26/2024 383-RICHA VIRAMONTES ONC DCC Family History Problem Relation Age of Onset Lung cancer Mother No Known Problems Father Lung cancer Sister Family Status - Relation Status Age at Mother Father Sister Level of Service:79850 CT OFFICE/OUTPATIENT ESTABLISHED MDM 10 MIN () Reason for Visit and Comments: Follow-up [525167] - F/U to review CT scan that was done today. Normal [facility] 29on 10-03-2024 29 Addended by: FENG CHRISTIE on: 10/12/2024 10:02 AM Modules accepted: Orders Normal [facility] 37on 10-03-2024 37 It was good to see y ou again Your recent CAT scan is reassuring showing me that your left adrenal mass has actually shrunk in size we no longer need to monitor this at all with any repeat CAT scans. To confirm if you have primary aldosteronism were going to do something called a saline infusion test at the [facility] they will be in contact with you likely within the next week. This is a 2-hour test in which we infused saline 2 L and assess any changes in your aldosterone level. This is in a monitored setting so you will not be alone. Normal [facility] Follow-Upon 10-03-2024 Follow-Up [id number] Aby Madrigal 1965 Date Provider Department Center 10/03/2024 [id number], [facility] ENDOCR [facility] Family History Problem Relation Age of Onset Lung cancer Mother No Known Problems Father Lung cancer Sister Family Status - Relation Status Age at Mother Father Sister Level of Service:45477 CT OFFICE/OUTPATIENT ESTABLISHED MOD MDM 30 MIN Reason for Visit and Comments: Follow-up [813031] [facility] Office Visiton 09-04-2024 Follow-up visit [id number] Aby Madrigal 1965 Date Provider Department Center 09/04/2024 Octavio-GOMEZ [facility] Family History Problem Relation Age of Onset Lung cancer Mother No Known Problems Father Lung cancer Sister Family Status - Relation Status Age at Mother Father Sister Level of Service:54631 CT OFFICE/OUTPATIENT ESTABLISHED MOD MDM 30 MIN Normal [facility] ALDOSTERONEon 08-29-2024 ALDOSTERONE (NG/DL) IN SER/PLAS 13.0 ng/dL Normal [facility] Comment on above: Result Comment: INTE [...] reference intervals for this test in the [facility] Test Directory ([employer] Performed By: [facility] [address] [place] [address] Foundation Maker: Navneet Simeon MD, PhD CLIA Number: [id number] Performed By: #### L [id number] #### [facility] ([facility]) [address] [place] [address] Ron 08-29-2024 ALT [Catalytic activity/Vol] 25 U/L Normal 7-52 [facility] Comment on above: Performed By: #### L [id number] ####[facility] ([facility])[address] [place] [address] Riki 08-29-2024 AST [Catalytic activity/Vol] 21 U/L Normal 13-39 [facility] Comment on above: Performed By: #### L [id number] #### [facility] ([facility]) [address] [place] [address] BASIC METABOLIC PANELon 10-0 Anion gap [Moles/Vol] 12 mmol/L Normal 7-20 [facility] Comment on above: Performed By: #### L [id number] ####[facility] ([facility])[address] [place] [address] Calcium [Mass/Vol] 9.3 mg/dL Normal 8.6-10.3 [facility] Comment on above: Performed By: #### L [id number] ####[facility] ([facility])[address] [place] [address] Chloride [Moles/Vol] 105 mmol/L Normal 98-107 [facility] Comment on above: Performed By: #### L [id number] ####[facility] ([facility])[address] [place] [address] CO2 [Moles/Vol] 28 mmol/L Normal 21-31 [facility] Comment on above: Performed By: #### L [id number] ####[facility] ([facility])[address] [place] [address] Creatinine [Mass/Vol] 0.95 mg/dL Normal 0.60-1.20 [facility] Comment on above: Performed By: #### L [id number] ####[facility] ([facility] [place] [address] GLOMERULAR FILTRATION RATE ML/MIN/1.73 SQ M.PREDICTED 68.6 mL/min/1.73m*2 Normal >60.0 [facility] Comment on above: Result Comment: The [facility]???s estimated glomerular filtration rate (eGFR) will [...] of individuals. Performed By: #### L [id number] ####[facility] ([facility])[address] [place] [address] Glucose [Mass/Vol] 99 mg/dL Normal 70-100 [facility] Comment on above: Performed By: #### L [id number] ####[facility] ([facility])[address] [place] [address] Potassium [Moles/Vol] 3.6 mmol/L Normal 3.5-5.1 [facility] Comment on above: Performed By: #### L [id number] ####[facility] ([facility])[address] [place] [address] Sodium [Moles/Vol] 141 mmol/L Normal 136-145 [facility] Comment on above: Performed By: #### L [id number] ####[facility] ([facility])[address] [place] [address] Urea nitrogen [Mass/Vol] 19 mg/dL Normal 7-25 [facility] Comment on above: Performed By: #### L [id number] ####[facility] ([facility])[address] [place] [address] UREA NITROGEN/CREATININE (MASS RATIO) IN SER/PLAS 20.0 Normal [facility] Comment on above: Performed By: #### L [id number] ####[facility] ([facility]AKER)[address] [place] [address] CORTISOLon 08-29-2024 CORTISOL (UG/DL) IN SER/PLAS 6.1 ug/dL Normal 0-9 [facility] Comment on above: Performed By: #### L [id number] #### [facility] ([facility]) [address] [place] [address] CT ABDOMEN PELVIS W AND WO I [...] Marybeth Bryan. Haider Vlwillam Invalid Interpretation Code [facility] DEXAMETHASONE LEVELon 2023 DEXAMETHASONE <50.0 Normal [facility] Comment on above: Order Comment: Blood [...] developed and its performance characteristics determined by [facility]. It has not been cleared or approved by the US Food and Drug Administration. This test was performed in a CLIA certified laboratory and is intended for clinical purposes. Performed By: [facility] [address] [place] [address] Foundation Maker: Navneet Simeon MD, PhD CLIA Number: [id number] Performed By: #### L [id number] #### [facility] ([facility]) [address] [place] [address] LIPID PANELon 08-29-2024 CHOL/HDL 2.4 mg/dL Normal [facility] Comment on above: Performed By: #### L [id number] #### [facility] ([facility]) [address] [place] [address] Cholesterol [Mass/Vol] 80 mg/dL Low 120-200 [facility] Comment on above: Performed By: #### L [id number] #### [facility]) [address] [place] [address] Magnesium [Mass/Vol] 96 mg/dL Normal 40-149 [facility] Comment on above: Result Comment: TRIG LYCERIDE REFERENCE RANGE: 20 YEARS AND OLDER CARDIOVASCULAR RISK LESS THAN 150 mg/dL LOW RISK 150 TO 199 mg/dL BORDERLINE RISK 200 mg/dL AND GREATER HIGH RISK Performed By: #### L [id number] #### [facility] ([facility]) [address] [place] [address] Magnesium [Mass/Vol] 28 mg/dL Normal 0-160 [facility] Comment on above: Performed By: #### L [id number] #### [facility] ([facility]) [address] [place] [address] Magnesium [Mass/Vol] 33 mg/dL Normal 23-92 [facility] Comment on above: Performed By: #### L [id number] #### [facility] ([facility]) [address] [place] [address] NON HDL CHOL. (LDL+VLDL) 47 Normal [facility] Comment on above: Performed By: #### L [id number] #### [facility] ([facility]) [address] [place] [address] TOTAL VLDL-C 19 mg/dL Normal 0-40 [facility] Comment on above: Performed By: #### L [id number] #### [facility] ([facility]) [address] [place] [address] Labon 08-29-2024 Lab [id number] AntoinetteroAby Cristina 1965 F Date Provider Department Center 08/29/2024 2245-[facility] OPD LAB RESOURCE [facility] OPD [facility] C Family History Problem Relation Age of Onset Lung cancer Mother No Known Problems Father Lung cancer Sister Family Status - Relation Status Age at Mother Father Sister Normal [facility] RENIN ACTIVITYon 08-29-2024 RENIN ACTIVITY <0.1 Normal [facility] Comment on above: Result Comment: INTE [...] developed and its performance characteristics determined by [facility]. It has not been cleared or approved by the US Food and Drug Administration. This test was performed in a CLIA certified laboratory and is intended for clinical purposes. Performed By: [facility] [address] [place] [address] Foundation Maker: Navneet Simeon MD, PhD CLIA Number: [id number] Performed By: #### L [id number] #### [facility] ([facility]) [address] [place] [address] 36on 08-10-2024 36 Updated patient on Nodify blood test results and plan for f/u CT and appt scheduled for 10/26/24. [facility] Letter (Out)on 08-09-2024 Letter (Out) [id number] Aby Madrigal 1965 F Date Provider Department Center 08/09/2024 None-None [facility] ADMIT None Family History Problem Relation Age of Onset Lung cancer Mother No Known Problems Father Lung cancer Sister Family Status - Relation Status Age at Mother Father Sister [facility] 36on 08-08-2024 36 Called patient over [...] She thanked me for the call Normal [facility] Orders Onlyon 08-08-2024 Orders Only [id number] Aby Madrigal S 1965 F Date Provider Department Center 08/08/2024 RICHA MERINO ONC NICKI Family History Problem Relation Age of Onset Lung cancer Mother No Known Problems Father Lung cancer Sister Family Status - Relation Status Age at Mother Father Sister Normal [facility] Telephoneon 08-08-2024 Telephone [id number] Aby Madrigal S 1965 F Date Provider Department Center 08/08/2024 [id number], [facility] ENDOCR [facility] Family History Problem Relation Age of Onset Lung cancer Mother No Known Problems Father Lung cancer Sister Family Status - Relation Status Age at Mother Father Sister Normal [facility] Telemedicineon 07-20-2024 Telemedicine [id number] Aby Madrigal S 1965 F Date Provider Department Center 07/20/2024 RICHA MERINO ONC DCC Family History Problem Relation Age of Onset Lung cancer Mother No Known Problems Father Lung cancer Sister Family Status - Relation Status Age at Mother Father Sister Level of Service:06990 CT PHYS/QHP TELEPHONE EVALUATION 21-30 MIN () Reason for Visit and Comments: New 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 CT CHEST 04-21-24- PET 06-21-24 Films requested 07-18-24 HAVING HARD TIME GETTING FILMS FROM [facility] AGAIN. Ginny at [facility] ([phone] direct line) is working on sending them. CHECK [facility] FOR FILMS PLEASE Normal [facility] 37on 07-18-2024 37 It was [...] lab work done at one of these [facility] Sites The results will then come straight to me I appreciate it [facility] [address], [place] Hours Wednesday - Wednesday 8 AM - 4PM (Closed 12 - 12:30 PM daily) Phone: [facility] [address] [place] Hours: Wednesday - Wednesday 6 AM - 5 PM Wednesday: 7 AM - 2 PM Phone: [address] [place] Hours: Wednesday - Wednesday 7 AM - 3:30 PM Phone: [facility] [address] [place] Hours: Wednesday 7 AM - 5:30 PM Phone: [facility] [address], [place] Hours: Wednesday - Wednesday 8 AM - 4:30 PM Phone: [facility] EDNURSon 07-18-2024 EDNURS ADR and relevant inf o reported to [facility] in pharmacy d/t safety net being down. Viet Kelly RN 07/18/24 1783 [facility] EDNURS SENT FROM MD OFFICE RE: LOW BP; RECENT DC FROM [facility] FOR SAME [facility] EDPROVon 07-18-2024 EDPROV HPI Chief Complaint [...] new meds yesterday. History provided by: Patient authorizer used: No [place] Coma Scale Score: 15 Patient History Past [...] by mouth i (more content not included)... [facility] Office Visiton 07-18-2024 Follow-up visit [id number] Aby Madrigal 1965 F Date Provider Department Center 07/18/2024 [id number] BOWMAN [facility] Family History Problem Relation Age of Onset Lung cancer Mother No Known Problems Father Lung cancer Sister Family Status - Relation Status Age at Mother Father Sister Level of Service:30120 CT OFFICE/OUTPATIENT NEW MODERATE MDM 45 MINUTES Reason for Visit and Comments: Nodules [Other] [facility] Follow-up visit [id number] Aby Madrigal 1965 F Date Provider Department Center 07/18/2024 [id number] BOWMAN [facility] Family History Problem Relation Age of Onset Lung cancer Mother No Known Problems Father Lung cancer Sister Family Status - Relation Status Age at Mother Father Sister Level of Service: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 Reason for Visit and Comments: BP Issues, DM, and Kidney issue [Other] [facility] 36on 07-13-2024 36 Post Discharge Call Good morning, I am Ginny Jose, RN a lead nurse from [facility] [...] Patient Name Aby Madrigal Date 07/13/24 Normal [facility] Telephoneon 07-13-2024 Telephone [id number] Aby Madrigal 1965 F Date Provider Department Center 07/13/2024 Adela-GINNY GARCIA [facility] Family History Problem Relation Age of Onset Lung cancer Mother No Known Problems Father Lung cancer Sister Family Status - Relation Status Age at Mother Father Sister Reason for Visit and Comments: Hospital Follow-up [832] Normal [facility] 30on 07-12-2024 30 The patient is [...] to address these barriers include . Normal [facility] ANTI-XA (HEPARIN LEVEL)on HEPARIN UNFRACTIONATED (U/ML) IN PPP BY CHROMOGENIC METHOD 0.60 IU/mL Normal 0.3-0.7 [facility] Comment on above: Order Comment: Check anti-Xa level every 6 hours while on heparin infusion, or per protocol. Result Comment: [place] roxaban and Apixaban will interfere with the anti Xa assay used to monitor UFH and LMWH. Performed By: #### L [id number] ####[facility] ([facility])[address] [place] [address] BASIC METABOLIC PANELon 08-2 Anion gap [Moles/Vol] 10 mmol/L Normal 7-20 [facility] Comment on above: Performed By: #### L [id number] #### [facility] ([facility]) [address] [place] [address] Calcium [Mass/Vol] 8.8 mg/dL Normal 8.6-10.3 [facility] Comment on above: Performed By: #### L [id number] #### [facility] ([facility]) [address] [place] [address] Chloride [Moles/Vol] 108 mmol/L High 98-107 [facility] Comment on above: Performed By: #### L [id number] #### [facility] ([facility]) [address] [place] [address] CO2 [Moles/Vol] 27 mmol/L Normal 21-31 [facility] Comment on above: Performed By: #### L [id number] #### [facility] ([facility]) [address] [place] [address] Creatinine [Mass/Vol] 0.89 mg/dL Normal 0.60-1.20 [facility] Comment on above: Performed By: #### L [id number] #### [facility] ([facility]) [address] [place] [address] GLOMERULAR FILTRATION RATE ML/MIN/1.73 SQ M.PREDICTED 74.2 mL/min/1.73m*2 Normal >60.0 [facility] Comment on above: Result Comment: [facility]???s estimated glomerular filtration rate (eGFR) will [...] group of individuals. Performed By: #### L [id number] #### [facility] ([facility]) [address] [place] [address] Glucose [Mass/Vol] 109 mg/dL High 70-100 [facility] Comment on above: Performed By: #### L [id number] #### [facility] ([facility]) [address] [place] [address] Potassium [Moles/Vol] 3.4 mmol/L Low 3.5-5.1 [facility] Comment on above: Performed By: #### L [id number] #### [facility] ([facility]) [address] [place] [address] Sodium [Moles/Vol] 142 mmol/L Normal 136-145 [facility] Comment on above: Performed By: #### L [id number] #### [facility] ([facility]) [address] [place] [address] Urea nitrogen [Mass/Vol] 11 mg/dL Normal 7-25 [facility] Comment on above: Performed By: #### L [id number] #### [facility] ([facility]) [address] [place] [address] UREA NITROGEN/CREATININE (MASS RATIO) IN SER/PLAS 12.4 Normal [facility] Comment on above: Performed By: #### L [id number] #### [facility] ([facility]) [address] [place] [address] CBC WITH AUTO DIFFERENTIALon 07-12-2024 Basophils (Bld) [#/Vol] 0.04 10*3/uL Normal 0.00-0.20 [facility] Comment on above: Performed By: #### L [id number] #### [facility] ([facility]) [address] [place] [address] Basophils/100 WBC (Bld) 0.6 % Normal 0.0-1.0 [facility] Comment on above: Performed By: #### L [id number] #### [facility] ([facility]) [address] [place] [address] Eosinophils (Bld) [#/Vol] 0.22 10*3/uL Normal 0.00-0.50 [facility] Comment on above: Performed By: #### L [id number] #### [facility]) [address] [place] [address] Eosinophils/100 WBC (Bld) 3.5 % Normal 0.0-6.0 [facility] Comment on above: Performed By: #### L [id number] #### [facility]) [address] [place] [address] Erythrocyte distribution width (RBC) [Ratio] 14.5 % Normal 11.5-15.0 [facility] Comment on above: Performed By: #### L [id number] #### [facility] ([facility]) [address] [place] [address] ERYTHROCYTE MEAN CORPUSCULAR HEMOGLOBIN CONCENTRATION (G/DL) BY AUTOMATED 32.7 g/dL Normal 32.0-35.0 [facility] Comment on above: Performed By: #### L [id number] #### [facility]) [address] [place] [address] Hematocrit (Bld) [Volume fraction] 34.2 % Low 36.0-48.0 [facility] Comment on above: Performed By: #### L [id number] #### [facility] ([facility]) [address] [place] [address] Hemoglobin (Bld) [Mass/Vol] 11.2 g/dL Low 12.0-15.0 [facility] Comment on above: Performed By: #### L [id number] #### [facility] ([facility]) [address] [place] [address] Immature granulocytes (Bld) [#/Vol] 0.01 10*3/uL Normal 0.00-0.20 [facility] Comment on above: Performed By: #### L [id number] #### [facility] ([facility]) [address] [place] [address] Immature granulocytes/100 WBC (Bld) 0.2 % Normal 0.0-1.0 [facility] Comment on above: Performed By: #### L [id number] #### [facility] ([facility]) [address] [place] [address] Lymphocytes (Bld) [#/Vol] 2.37 10*3/uL Normal 1.20-4.00 [facility] Comment on above: Performed By: #### L [id number] #### [facility] ([facility]) [address] [place] [address] Lymphocytes/100 WBC (Bld) 37.8 % Normal 20.0-45.0 [facility] Comment on above: Performed By: #### L [id number] #### [facility] ([facility]) [address] [place] [address] MCH (RBC) [Entitic mass] 27.4 pg Normal 27.0-33.0 [facility] Comment on above: Performed By: #### L [id number] #### [facility] ([facility]) [address] [address] MCV (RBC) [Entitic vol] 83.6 fL Normal 82.0-98.0 [facility] Comment on above: Performed By: #### L [id number] #### [facility] ([facility]) [address] [address] Monocytes (Bld) [#/Vol] 0.43 10*3/uL Normal 0.10-1.00 [facility] Comment on above: Performed By: #### L [id number] #### [facility] ([facility]) [address] [address] Monocytes/100 WBC (Bld) 6.9 % Normal 5.0-12.0 [facility] Comment on above: Performed By: #### L [id number] #### [facility] ([facility]) [address] [place] [address] Neutrophils (Bld) [#/Vol] 3.20 10*3/uL Normal 1.60-7.60 [facility] Comment on above: Performed By: #### L [id number] #### [facility] ([facility]) [address] [place] [address] Neutrophils/100 WBC (Bld) 51.0 % Normal 40.0-72.0 [facility] Comment on above: Performed By: #### L [id number] #### [facility] ([facility]) [address] [place] [address] NRBC (PER 100 WBCS) BY AUTOMATED COUNT 0.0 % Normal 0 [facility] Comment on above: Performed By: #### L [id number] #### [facility] ([facility]) [address] [place] [address] PLATELETS (10*3/UL) IN BLOOD AUTOMATED COUNT 223 10*3/uL Normal 150-400 [facility] Comment on above: Performed By: #### L [id number] #### [facility] ([facility]) [address] [place] [address] RBC (Bld) [#/Vol] 4.09 10*6/uL Normal 3.80-5.00 [facility] Comment on above: Performed By: #### L [id number] #### [facility] ([facility]) [address] [place] [address] WBC (Bld) [#/Vol] 6.27 10*3/uL Normal 4.00-10.60 [facility] Comment on above: Performed By: #### L [id number] #### [facility]) [address] [place] [address] MAGNESIUMon 07-12-2024 Magnesium [Mass/Vol] 1.7 mg/dL Low 1.9-2.7 [facility] Comment on above: Performed By: #### L [id number] #### [facility] ([facility]) [address] [place] [address] POCT GLUCOSE METER UNSOLICIT ED RESULTSon 07-12-2024 Glucose [Mass/Vol] 102 mg/dL Normal 70-105 [facility] Comment on above: Order Comment: Waive d Testing in the ED is performed under the ED CLIA certificate #[id number]. Result Comment: [email or web address] Performed By: #### L [id number] #### [facility] ([facility]) [address] [place] [address] TROPONIN Ion 07-12-2024 Troponin I.cardiac [Mass/Vol] 0.01 ng/mL Normal 0.00-0.04 [facility] Comment on above: Performed By: #### L [id number] #### [facility] ([facility]) [address] [place] [address] 30on 07-11-2024 30 The patient is Moderately [...] and maintained or improved Outcome: Progressing Normal [facility] 30 The patient is Moderately Stable - Low risk of patient condition declining or worsening The patient's goals for the shift include no chest pain The clinical goals for the shift include stable vital/no chest pain Over the shift, the patient did not make progress toward the following goals. Barriers to progression include . Recommendations to address these barriers include . Normal [facility] ALDOSTERONEon 07-11-2024 ALDOSTERONE (NG/DL) IN SER/PLAS 4.9 ng/dL Normal [facility] Comment on above: Result Comment: INTE [...] reference intervals for this test in the [facility] Test Directory ([employer] Performed By: [facility] [address] [place] [id number] Foundation Maker: Navneet Simeon MD, PhD CLIA Number: [id number] Performed By: #### L [id number] ####[facility] ([facility])[address] [place] [address] ANTI-XA (HEPARIN LEVEL)on HEPARIN UNFRACTIONATED (U/ML) IN PPP BY CHROMOGENIC METHOD 0.42 IU/mL Normal 0.3-0.7 [facility] Comment on above: Order Comment: Waive d Testing in the ED is performed under the ED CLIA certificate #[id number]. Result Comment: Radha roxaban and Apixaban will interfere with the anti Xa assay used to monitor UFH and LMWH. Performed By: #### L [id number] #### [facility] ([facility]) [address] [place] [address] HEPARIN UNFRACTIONATED (U/ML) IN PPP BY CHROMOGENIC METHOD 0.20 IU/mL Low 0.3-0.7 [facility] Comment on above: Order Comment: Check anti-Xa level every 6 hours while on heparin infusion, or per protocol. Result Comment: Moline roxaban and Apixaban will interfere with the anti Xa assay used to monitor UFH and LMWH. Performed By: #### L [id number] #### [facility] ([facility]) [address] [place] [address] APTTon 07-11-2024 ACTIVATED PARTIAL THROMBOPLASTIN TIME IN PPP BY COAGULATION ASSAY 43.0 Seconds High 25.0-35.0 [facility] Comment on above: Result Comment: Clin ical significance of the APTT is questionable in the presence of heparin. Performed By: #### L [id number] #### [facility] ([facility]) [address] [place] [address] BASIC METABOLIC PANELon 082 0-2023 Anion gap [Moles/Vol] 9 mmol/L Normal 7-20 [facility] Comment on above: Performed By: #### L [id number] #### [facility] ([facility]) [address] [place] [address] Calcium [Mass/Vol] 8.8 mg/dL Normal 8.6-10.3 [facility] Comment on above: Performed By: #### L [id number] #### [facility] ([facility]) [address] [place] [address] Chloride [Moles/Vol] 108 mmol/L High 98-107 [facility] Comment on above: Performed By: #### L [id number] #### [facility] ([facility]) [address] [place] [address] CO2 [Moles/Vol] 28 mmol/L Normal 21-31 [facility] Comment on above: Performed By: #### L [id number] #### [facility] ([facility]) [address] [place] [address] Creatinine [Mass/Vol] 1.09 mg/dL Normal 0.60-1.20 [facility] Comment on above: Performed By: #### L [id number] #### [facility] ([facility]) [address] [place] [address] GLOMERULAR FILTRATION RATE ML/MIN/1.73 SQ M.PREDICTED 58.2 mL/min/1.73m*2 Low >60.0 [facility] Comment on above: Result Comment: [facility]???s estimated glomerular filtration rate (eGFR) will [...] individuals. Performed By: #### L [id number] #### [facility] ([facility]) [address] [place] [address] Glucose [Mass/Vol] 113 mg/dL High 70-100 [facility] Comment on above: Performed By: #### L [id number] #### [facility] ([facility]) [address] [place] [address] Potassium [Moles/Vol] 3.4 mmol/L Low 3.5-5.1 [facility] Comment on above: Performed By: #### L [id number] #### [facility] ([facility]) [address] [place] [address] Sodium [Moles/Vol] 142 mmol/L Normal 136-145 [facility] Comment on above: Performed By: #### L [id number] #### [facility] ([facility]) [address] [place] [address] Urea nitrogen [Mass/Vol] 14 mg/dL Normal 7-25 [facility] Comment on above: Performed By: #### L [id number] #### [facility] ([facility]) [address] [place] [address] UREA NITROGEN/CREATININE (MASS RATIO) IN SER/PLAS 12.8 Normal [facility] Comment on above: Performed By: #### L [id number] #### [facility] ([facility]) [address] [place] [address] CBC WITH AUTO DIFFERENTIALon 07-11-2024 Basophils (Bld) [#/Vol] 0.04 10*3/uL Normal 0.00-0.20 [facility] Comment on above: Performed By: #### L [id number] ####[facility] ([facility])[address] [place] [address] Basophils/100 WBC (Bld) 0.6 % Normal 0.0-1.0 [facility] Comment on above: Performed By: #### L [id number] ####[facility] ([facility])[address] [place] [address] Eosinophils (Bld) [#/Vol] 0.16 10*3/uL Normal 0.00-0.50 [facility] Comment on above: Performed By: #### L [id number] ####[facility] ([facility])[address] [place] [address] Eosinophils/100 WBC (Bld) 2.2 % Normal 0.0-6.0 [facility] Comment on above: Performed By: #### L [id number] ####[facility] ([facility])[address] [place] [address] Erythrocyte distribution width (RBC) [Ratio] 14.6 % Normal 11.5-15.0 [facility] Comment on above: Performed By: #### L [id number] ####[facility] ([facility])[address] [place] [address] ERYTHROCYTE MEAN CORPUSCULAR HEMOGLOBIN CONCENTRATION (G/DL) BY AUTOMATED 32.0 g/dL Normal 32.0-35.0 [facility] Comment on above: Performed By: #### L [id number] ####[facility] ([facility])[address] [place] [address] Hematocrit (Bld) [Volume fraction] 36.2 % Normal 36.0-48.0 [facility] Comment on above: Performed By: #### L [id number] ####[facility] ([facility])[address] [place] [address] Hemoglobin (Bld) [Mass/Vol] 11.6 g/dL Low 12.0-15.0 [facility] Comment on above: Performed By: #### L [id number] ####[facility] ([facility]ER)[address] [place] [address] Immature granulocytes (Bld) [#/Vol] 0.02 10*3/uL Normal 0.00-0.20 [facility] Comment on above: Performed By: #### L [id number] ####[facility] ([facility])[address] [place] [address] Immature granulocytes/100 WBC (Bld) 0.3 % Normal 0.0-1.0 [facility] Comment on above: Performed By: #### L [id number] ####[facility] ([facility]ER)[address] [place] [address] Lymphocytes (Bld) [#/Vol] 2.34 10*3/uL Normal 1.20-4.00 [facility] Comment on above: Performed By: #### L [id number] ####[facility] ([facility]ER)[address] [place] [address] Lymphocytes/100 WBC (Bld) 32.6 % Normal 20.0-45.0 [facility] Comment on above: Performed By: #### L [id number] ####[facility] ([facility]ER)[address] [place] [address] MCH (RBC) [Entitic mass] 27.2 pg Normal 27.0-33.0 [facility] Comment on above: Performed By: #### L [id number] ####[facility] ([facility]ER)[address] [place] [address] MCV (RBC) [Entitic vol] 85.0 fL Normal 82.0-98.0 [facility] Comment on above: Performed By: #### L [id number] ####[facility] ([facility])[address] [place] [address] Monocytes (Bld) [#/Vol] 0.49 10*3/uL Normal 0.10-1.00 [facility] Comment on above: Performed By: #### L [id number] ####[facility] ([facility]ER)[address] [place] [address] Monocytes/100 WBC (Bld) 6.8 % Normal 5.0-12.0 [facility] Comment on above: Performed By: #### L [id number] ####[facility] ([facility])[address] [place] [address] Neutrophils (Bld) [#/Vol] 4.13 10*3/uL Normal 1.60-7.60 [facility] Comment on above: Performed By: #### L [id number] ####[facility] ([facility])[address] [place] [address] Neutrophils/100 WBC (Bld) 57.5 % Normal 40.0-72.0 [facility] Comment on above: Performed By: #### L [id number] ####[facility] ([facility])[address] [place] [address] NRBC (PER 100 WBCS) BY AUTOMATED COUNT 0.0 % Normal 0 [facility] Comment on above: Performed By: #### L [id number] ####[facility] ([facility])[address] [place] [address] PLATELETS (10*3/UL) IN BLOOD AUTOMATED COUNT 245 10*3/uL Normal 150-400 [facility] Comment on above: Performed By: #### L [id number] ####[facility] ([facility])[address] [place] [address] RBC (Bld) [#/Vol] 4.26 10*6/uL Normal 3.80-5.00 [facility] Comment on above: Performed By: #### L [id number] ####[facility] ([facility])[address] [place] [address] WBC (Bld) [#/Vol] 7.18 10*3/uL Normal 4.00-10.60 [facility] Comment on above: Performed By: #### L [id number] ####[facility] (BEAKER)[address] [place] [address] CONSULTon 07-11-2024 CONSULT -- Attestation signed by [...] Brown is the endocrine surgeon in the [place] area that would be most appropriate and [...] with plan for outpatient follow up with [facility] Meseret Mac MD Cardiology Consult Note Reason for Consult: Chest pain HPI: Aby Madrigal is a 59 y.o. female patient is presenting as a transfer from [facility] for the evaluation of chest pain. Past [...] Value Ventricular Rate [address] Interval 180 QRS DURATION 94 QT Interval 430 QTC (more content not included)... Normal [facility] EDPROVon 07-11-2024 EDPROV HPI Chief Complaint [...] Pt states [place]. Pt states she had a cardiac stent placed last week. She denies fever, coughing, vomiting, abdominal pain. She admits diarrhea. She felt better when given ativan and worse when she was given morphine. She has had her gallbladder removed. History provided by: Patient authorizer used: No Chest Pain Associated symptoms: no [...] signing this emergency patient record, the Emergency Physician/PARA EDUCATOR/PA-C attests that all entries made into the electronic medical record by the scribe prior to the Physician/PARA EDUCATOR/PA-C signature reflect an accurate accounting of the evaluation and care rendered by that Emergency Physician/PARA EDUCATOR/PA-C. The Emergency Physician/PARA EDUCATOR/PA-C assumes full responsibility for those entries. The Emergency Physician/PARA EDUCATOR/PA-C also attests that any patient testing or treatment that was instituted by nursing staff. [facility] EDPROV HPI Chief Complaint Patient presents [...] Pt states she was tras[place]fered here [place] to [place]. Pt states she had a cardiac stent placed last week. She denies fever, coughing, vomiting, abdominal pain. She admits diarrhea. She felt better when given ativan and worse when she was given morphine. She has had her gallbladder removed. History provided by: Patient authorizer used: No Chest Pain Associated symptoms: no abdominal pain, no cough, no fever and no vomiting Musa Coma Scale Score: 15 Patient History Past Medical History: Diagnosis Date Abnormal ECG Diabetes mellitus ([facility]) Hyperlipidemia Hypertension Obstructive sleep apnea Panic attacks Stroke ([facility]) Past Surgical History: Procedure Laterality Date [...] MDM ED Course as of 07/11/24 1256 [facility] Jul 11, 2024 1041 Cardiology consulted [AT] ED Course User Index [AT] Federica Jacobson MD Diagnoses as of 07/11/24 1256 NSTEMI (non-ST elevated myocardial infarction) ([facility]) Medical Decision Making Amount and/or Complexity of Data Reviewed Labs: ordered. Decision-making details documented in ED Course. ECG/medicine tests: ordered and independent interpretation performed. Decision-making details documented in ED Course. Risk Drug therapy requiring intensive monitoring for toxicity. Decision regarding hospitalization. Minor surgery with identified risk factors. I, Basilia diallo (more content not included)... Invalid Interpretation Code [facility] POCT GLUCOSE METER UNSOLICIT ED RESULTSon 07-11-2024 Glucose [Mass/Vol] 122 mg/dL High 70-105 [facility] Comment on above: Order Comment: Waive d Testing in the ED is performed under the ED CLIA certificate #[id number]. Result Comment: [email or web address] Performed By: #### L [id number] #### [facility] ([facility]) [address] [place] [address] PROTIME-INRon 07-11-2024 INR IN PPP BY COAGULATION ASSAY 1.00 Normal 0.90-1.10 [facility] Comment on above: Result Comment: ACCC [...] 1995;108:[id number]. Performed By: #### L [id number] #### [facility] ([facility]) [address] [place] [address] PROTHROMBIN TIME (PT) IN PPP BY COAGULATION ASSAY 13.2 Seconds Normal 12.3-14.8 [facility] Comment on above: Performed By: #### L [id number] #### [facility] ([facility]) [address] [place] [address] RENIN ACTIVITYon 07-11-2024 RENIN ACTIVITY <0.1 Normal [facility] Comment on above: Result Comment: INTE [...] developed and its performance characteristics determined by [facility]. It has not been cleared or approved by the [place] Food and Drug Administration. This test was performed in a CLIA certified laboratory and is intended for clinical purposes. Performed By: [facility] [address] [place] [address] Foundation Maker: Navneet Simeon MD, PhD CLIA Number: [id number] Performed By: #### L [id number] ####[facility] ([facility])[address] [place] [address] TROPONIN Ion 07-11-2024 Troponin I.cardiac [Mass/Vol] 0.01 ng/mL Normal 0.00-0.04 [facility] Comment on above: Performed By: #### L [id number] #### [facility] ([facility]) [address] [place] [address] Office Visiton 07-10-2024 Follow-up visit [id number] Aby Madrigal 1965 F Date Provider Department Center 07/10/2024 [id number] MITCHELL RIAZ [facility] Family History Problem Relation Age of Onset Lung cancer Mother No Known Problems Father Lung cancer Sister Family Status - Relation Status Age at Mother Father Sister Level of Service:72153 CT OFFICE/OUTPATIENT ESTABLISHED MOD MDM 30 MIN Reason for Visit and Comments: Coronary Artery Disease [187] Post-Cath [731] Normal [facility] 36on 07-03-2024 36 Post Discharge Call [...] Patient Name Aby Madrigal Date 07/03/24 Normal [facility] Telephoneon 07-03-2024 Telephone [id number] Aby Madrigal 1965 F Date Provider Department Center 07/03/2024 Adela-GINNY GARCIA [facility] Family History Problem Relation Age of Onset Lung cancer Mother No Known Problems Father Lung cancer Sister Family Status - Relation Status Age at Mother Father Sister Reason for Visit and Comments: Hospital Follow-up [832] Normal [facility] 30on 07-01-2024 30 The patient is [...] and maintained or improved Outcome: Progressing Normal [facility] BASIC METABOLIC PANELon 06-22 Anion gap [Moles/Vol] 14 mmol/L Normal - [facility] Comment on above: Performed By: #### L [id number] #### [facility] ([facility]) [address] [place] [address] Calcium [Mass/Vol] 8.2 mg/dL Low 8.6-10.3 [facility] Comment on above: Performed By: #### L [id number] #### [facility] ([facility]) [address] [place] [address] Chloride [Moles/Vol] 106 mmol/L Normal 98-107 [facility] Comment on above: Performed By: #### L [id number] #### [facility] ([facility]) [address] [place] [address] CO2 [Moles/Vol] 25 mmol/L Normal 21-31 [facility] Comment on above: Performed By: #### L [id number] #### [facility] ([facility]) [address] [place] [address] Creatinine [Mass/Vol] 0.91 mg/dL Normal 0.60-1.20 [facility] Comment on above: Performed By: #### L [id number] #### [facility] ([facility]) [address] [place] [address] GLOMERULAR FILTRATION RATE ML/MIN/1.73 SQ M.PREDICTED 72.2 mL/min/1.73m*2 Normal >60.0 [facility] Comment on above: Result Comment: [facility]???s estimated glomerular filtration rate (eGFR) will [...] AB15 #### [facility] ([facility]) [address] [place] [address] Glucose [Mass/Vol] 101 mg/dL High 70-100 [facility] Comment on above: Performed By: #### L [id number] #### [facility] ([facility]) [address] [place] [address] Potassium [Moles/Vol] 3.5 mmol/L Normal 3.5-5.1 [facility] Comment on above: Performed By: #### L [id number] #### [facility] ([facility]) [address] [place] [address] Sodium [Moles/Vol] 141 mmol/L Normal 136-145 [facility] Comment on above: Performed By: #### L [id number] #### [facility] ([facility]ER) [address] [place] [address] Urea nitrogen [Mass/Vol] 13 mg/dL Normal 7-25 [facility] Comment on above: Performed By: #### L [id number] #### [facility]) [address] [place] [address] UREA NITROGEN/CREATININE (MASS RATIO) IN SER/PLAS 14.3 Normal [facility] Comment on above: Performed By: #### L [id number] #### [facility] ([facility]) [address] [place] [address] CBCon 07-01-2024 Erythrocyte distribution width (RBC) [Ratio] 15.4 % High 11.5-15.0 [facility] Comment on above: Performed By: #### L [id number] ####[facility] ([facility])[address] [place] [address] ERYTHROCYTE MEAN CORPUSCULAR HEMOGLOBIN CONCENTRATION (G/DL) BY AUTOMATED 32.1 g/dL Normal 32.0-35.0 [facility] Comment on above: Performed By: #### L [id number] ####[facility] ([facility])[address] [address] Hematocrit (Bld) [Volume fraction] 38.6 % Normal 36.0-48.0 [facility] Comment on above: Performed By: #### L [id number] ####[facility] (BEAKER)[address] [place] [address] Hemoglobin (Bld) [Mass/Vol] 12.4 g/dL Normal 12.0-15.0 [facility] Comment on above: Performed By: #### L [id number] ####[facility] (BEAKER)[address] [place] [address] MCH (RBC) [Entitic mass] 26.9 pg Low 27.0-33.0 [facility] Comment on above: Performed By: #### L [id number] ####[facility] ([facility])[address] [place] [address] MCV (RBC) [Entitic vol] 83.7 fL Normal 82.0-98.0 [facility] Comment on above: Performed By: #### L [id number] ####[facility] ([facility])[address] [place] [address] PLATELETS (10*3/UL) IN BLOOD AUTOMATED COUNT 238 10*3/uL Normal 150-400 [facility] Comment on above: Performed By: #### L [id number] ####[facility] ([facility])[address] [place] [address] RBC (Bld) [#/Vol] 4.61 10*6/uL Normal 3.80-5.00 [facility] Comment on above: Performed By: #### L [id number] ####[facility] ([facility])[address] [place] [address] WBC (Bld) [#/Vol] 7.04 10*3/uL Normal 4.00-10.60 [facility] Comment on above: Performed By: #### L [id number] ####[facility] ([facility])[address] [place] [address] LIPID PANELon 07-01-2024 CHOL/HDL 3.8 mg/dL Normal [facility] Comment on above: Performed By: #### L [id number] #### [facility] ([facility]) [address] [place] [address] Cholesterol [Mass/Vol] 128 mg/dL Normal 120-200 [facility] Comment on above: Performed By: #### L [id number] #### [facility] ([facility]) [address] [place] [address] Magnesium [Mass/Vol] 87 mg/dL Normal 40-149 [facility] Comment on above: Result Comment: TRIG LYCERIDE REFERENCE RANGE: 20 YEARS AND OLDER CARDIOVASCULAR RISK LESS THAN 150 mg/dL LOW RISK 150 TO 199 mg/dL BORDERLINE RISK 200 mg/dL AND GREATER HIGH RISK Performed By: #### L [id number] #### [facility] (BEAKER) [address] [place] [address] Magnesium [Mass/Vol] 77 mg/dL Normal 0-160 [facility] Comment on above: Performed By: #### L [id number] #### [facility] ([facility]AKER) [address] [place] [address] Magnesium [Mass/Vol] 34 mg/dL Normal 23-92 [facility] Comment on above: Performed By: #### L [id number] #### [facility] ([facility]AKER) [address] [place] [address] NON HDL CHOL. (LDL+VLDL) 94 Normal [facility] Comment on above: Performed By: #### L [id number] #### [facility] ([facility]AKER) [address] [place] [address] TOTAL VLDL-C 17 mg/dL Normal 0-40 [facility] Comment on above: Performed By: #### L [id number] #### [facility] ([facility]AKER) [address] [place] [address] MAGNESIUMon 07-01-2024 Magnesium [Mass/Vol] 2.0 mg/dL Normal 1.9-2.7 [facility] Comment on above: Performed By: #### L [id number] ####[facility] (BEAKER)[address] [place] [address] NURSNOTEon 07-01-2024 NURSNOTE Discharge instructio ns given, reviewed, questions, answered, signed, copy received. Normal [facility] POCT GLUCOSE METER UNSOLICIT ED RESULTSon 07-01-2024 Glucose [Mass/Vol] 124 mg/dL High 70-105 [facility] Comment on above: Order Comment: Waive d Testing in the ED is performed under the ED CLIA certificate #[id number]. Result Comment: [email or web address] Performed By: #### L [id number] ####[facility] ([facility])[address] [place] [address] Glucose [Mass/Vol] 106 mg/dL High 70-105 [facility] Comment on above: Order Comment: Waive d Testing in the ED is performed under the ED CLIA certificate #[id number]. Result Comment: [email or web address] Performed By: #### L [id number] #### [facility] ([facility]) [address] [place] [address] TROPONIN Ion 07-01-2024 Troponin I.cardiac [Mass/Vol] 0.09 ng/mL High 0.00-0.04 [facility] Comment on above: Performed By: #### L [id number] #### [facility] ([facility]) [address] [place] [address] 30on 06-30-2024 30 The patient is Moderately Stable - Low risk of patient condition declining or worsening The patient's goals for the shift include comfort, rest The clinical goals for the shift include stable vitals, comfort Problem: Pain - Adult Goal: Verbalizes/displays adequate comfort level or baseline comfort level Outcome: Not Progressing [facility] 30 Daily Case Managemen t Update [...] PT Recommendations: OT Recommendations: New Consults: Normal [facility] 30 The patient is Moderately Stable - Low risk of patient condition declining or worsening The patient's goals for the shift include COMFORT The clinical goals for the shift include VSS Over the shift, the patient did not make progress toward the following goals. Barriers to progression include . Recommendations to address these barriers include . Normal [facility] ANTI-XA (HEPARIN LEVEL)on HEPARIN UNFRACTIONATED (U/ML) IN PPP BY CHROMOGENIC METHOD 0.64 IU/mL Normal 0.3-0.7 [facility] Comment on above: Order Comment: Check anti-Xa level every 6 hours while on heparin infusion, or per protocol. Result Comment: [place] roxaban and Apixaban will interfere with the anti Xa assay used to monitor UFH and LMWH. Performed By: #### L [id number] ####[facility] ([facility])[address] [place] [address] BASIC METABOLIC PANELon Anion gap [Moles/Vol] 11 mmol/L Normal 7-20 [facility] Comment on above: Performed By: #### L [id number] #### [facility] ([facility]) [address] [place] [address] Calcium [Mass/Vol] 8.3 mg/dL Low 8.6-10.3 [facility] Comment on above: Performed By: #### L [id number] #### [facility] ([facility]) [address] [place] [address] Chloride [Moles/Vol] 110 mmol/L High 98-107 [facility] Comment on above: Performed By: #### L [id number] #### [facility] ([facility]) [address] [place] [address] CO2 [Moles/Vol] 26 mmol/L Normal 21-31 [facility] Comment on above: Performed By: #### L [id number] #### [facility] (BEAKER) [address] [place] [address] Creatinine [Mass/Vol] 0.81 mg/dL Normal 0.60-1.20 [facility] Comment on above: Performed By: #### L [id number] #### [facility] ([facility]) [address] [place] [address] GLOMERULAR FILTRATION RATE ML/MIN/1.73 SQ M.PREDICTED 83.1 mL/min/1.73m*2 Normal >60.0 [facility] Comment on above: Result Comment: [facility]???s estimated glomerular filtration rate (eGFR) will [...] individuals. Performed By: #### L [id number] #### [facility] ([facility]) [address] [place] [address] Glucose [Mass/Vol] 110 mg/dL High 70-100 [facility] Comment on above: Performed By: #### L [id number] #### [facility] ([facility]) [address] [place] [address] Potassium [Moles/Vol] 3.7 mmol/L Normal 3.5-5.1 [facility] Comment on above: Performed By: #### L [id number] #### [facility] ([facility]) [address] [place] [address] Sodium [Moles/Vol] 143 mmol/L Normal 136-145 [facility] Comment on above: Performed By: #### L [id number] #### [facility] ([facility]) [address] [place] [address] Urea nitrogen [Mass/Vol] 10 mg/dL Normal 7-25 [facility] Comment on above: Performed By: #### L [id number] #### [facility] ([facility]) [address] [place] [address] UREA NITROGEN/CREATININE (MASS RATIO) IN SER/PLAS 12.3 Normal [facility] Comment on above: Performed By: #### L [id number] #### [facility] ([facility]) [address] [place] [address] CBCon 06-30-2024 Erythrocyte distribution width (RBC) [Ratio] 15.3 % High 11.5-15.0 [facility] Comment on above: Performed By: #### L [id number] #### [facility] ([facility]) [address] [place] [address] ERYTHROCYTE MEAN CORPUSCULAR HEMOGLOBIN CONCENTRATION (G/DL) BY AUTOMATED 31.3 g/dL Low 32.0-35.0 [facility] Comment on above: Performed By: #### L [id number] #### [facility] ([facility]) [address] [place] [address] Hematocrit (Bld) [Volume fraction] 36.7 % Normal 36.0-48.0 [facility] Comment on above: Performed By: #### L [id number] #### [facility] ([facility]) [address] [place] [address] Hemoglobin (Bld) [Mass/Vol] 11.5 g/dL Low 12.0-15.0 [facility] Comment on above: Performed By: #### L [id number] #### [facility] ([facility]) [address] [place] [address] MCH (RBC) [Entitic mass] 26.9 pg Low 27.0-33.0 [facility] Comment on above: Performed By: #### L [id number] #### [facility] ([facility]) [address] [place] [address] MCV (RBC) [Entitic vol] 85.7 fL Normal 82.0-98.0 [facility] Comment on above: Performed By: #### L [id number] #### [facility] ([facility]) [address] [place] [address] PLATELETS (10*3/UL) IN BLOOD AUTOMATED COUNT 243 10*3/uL Normal 150-400 [facility] Comment on above: Performed By: #### L [id number] #### [facility] ([facility]) [address] [facility] [place] [address] RBC (Bld) [#/Vol] 4.28 10*6/uL Normal 3.80-5.00 [facility] Comment on above: Performed By: #### L [id number] #### [facility] ([facility]) [address] [place] [address] WBC (Bld) [#/Vol] 7.41 10*3/uL Normal 4.00-10.60 [facility] Comment on above: Performed By: #### L [id number] #### [facility] ([facility]) [address] [place] [address] CONSULTon 06-30-2024 CONSULT Cardiology Consult Note Reason for Consult: NSTEMI, transfer from [facility] HPI: Aby Madrigal, a 59 y.o. female patient, is transferred from [facility] for continuity of care. Past medical history includes: HTN History of TIA DMII HLD SURSEH Overweight Patient reports that 3 days ago, she woke up in the mid of the night with indigestion, and a feeling fullness, but no pressure like chest pain. She presented to [facility], where she was found to [...] Value Ventricular Rate [address] Interval 176 QRS DURATION 92 QT Interval 424 QTC CALCULATION(BAZETT) 460 P [place] 52 R-[place] 19 T Wave [place] 164 Impression Normal sinus rhythm Left ventricular [...] Normal sinu (more content not included)... Normal [facility] HPon 06-30-2024 HP H&P reviewed. The patient was examined and there are no changes to the H&P. 59 y.o. year old female with a PMHx significant for DM2, hypertension presents a direct mission from [facility] with a chief complaint of chest pain [...] to proceed. Signed, Yris Oakley MD PGY-4 [employer]igr[employer]ologist Pager: [phone] Normal [facility] POCT GLUCOSE METER UNSOLICIT ED RESULTSon 06-30-2024 Glucose [Mass/Vol] 170 mg/dL High 70-105 [facility] Comment on above: Order Comment: Waive d Testing in the ED is performed under the ED CLIA certificate #[id number]. Result Comment: [email or web address] Performed By: #### L [id number] #### [facility] ([facility]) [address] [place] [address] Glucose [Mass/Vol] 129 mg/dL High 70-105 [facility] Comment on above: Order Comment: Waive d Testing in the ED is performed under the ED CLIA certificate #[id number]. Result Comment: [email or web address] Performed By: #### L [id number] ####[facility] ([facility])[address] [place] [address] Glucose [Mass/Vol] 167 mg/dL High 70-105 [facility] Comment on above: Order Comment: Waive d Testing in the ED is performed under the ED CLIA certificate #[id number]. Result Comment: [email or web address] Performed By: #### L [id number] ####[facility] ([facility])[address] [place] [address] TROPONIN Ion 06-30-2024 Troponin I.cardiac [Mass/Vol] 0.07 ng/mL High 0.00-0.04 [facility] Comment on above: Performed By: #### L [id number] ####[facility] ([facility])[address] [place] [address] Troponin I.cardiac [Mass/Vol] 0.10 ng/mL High 0.00-0.04 [facility] Comment on above: Performed By: #### L [id number] #### [facility] ([facility]) [address] [place] [address] Troponin I.cardiac [Mass/Vol] 0.11 ng/mL Critically high 0.00-0.04 [facility] Comment on above: Result Comment: M-TR OPONIN INITIAL CRITICAL HIGH; RESPUN AND RETESTED Performed By: #### L [id number] #### [facility] ([facility]) [address] [place] [address] 30on 06-29-2024 30 The patient is Moderately Stable - Low risk of patient condition declining or worsening The patient's goals for the shift include COMFORT The clinical goals for the shift include VSS Normal [facility] APTTon 06-29-2024 ACTIVATED PARTIAL THROMBOPLASTIN TIME IN PPP BY COAGULATION ASSAY 34.5 Seconds Normal 25.0-35.0 [facility] Comment on above: Order Comment: Basel ine aPTT before initiating heparin infusion. Result Comment: Clin ical significance of the APTT is questionable in the presence of heparin. Performed By: #### L [id number] #### [facility] ([facility]) [address] [place] [address] B-TYPE NATRIURETIC PEPTIDEon 06-29-2024 Natriuretic peptide B (Bld) [Mass/Vol] 222 pg/mL High 0-100 [facility] Comment on above: Performed By: #### L [id number] #### [facility] ([facility]) [address] [place] [address] CBC WITH AUTO DIFFERENTIALon 06-29-2024 Basophils (Bld) [#/Vol] 0.05 10*3/uL Normal 0.00-0.20 [facility] Comment on above: Performed By: #### L [id number] #### [facility] ([facility]) [address] [place] [address] Basophils/100 WBC (Bld) 0.6 % Normal 0.0-1.0 [facility] Comment on above: Performed By: #### L [id number] #### [facility] ([facility]) [address] [place] [address] Eosinophils (Bld) [#/Vol] 0.18 10*3/uL Normal 0.00-0.50 [facility] Comment on above: Performed By: #### L [id number] #### [facility] ([facility]) [address] [place] [address] Eosinophils/100 WBC (Bld) 2.1 % Normal 0.0-6.0 [facility] Comment on above: Performed By: #### L [id number] #### [facility] ([facility]) [address] [address] Erythrocyte distribution width (RBC) [Ratio] 14.9 % Normal 11.5-15.0 [facility] Comment on above: Performed By: #### L [id number] #### [facility] ([facility]) [address] [place] [address] ERYTHROCYTE MEAN CORPUSCULAR HEMOGLOBIN CONCENTRATION (G/DL) BY AUTOMATED 32.9 g/dL Normal 32.0-35.0 [facility] Comment on above: Performed By: #### L [id number] #### [facility] ([facility]) [address] [place] [address] Hematocrit (Bld) [Volume fraction] 35.9 % Low 36.0-48.0 [facility] Comment on above: Performed By: #### L [id number] #### [facility] ([facility]) [address] [place] [address] Hemoglobin (Bld) [Mass/Vol] 11.8 g/dL Low 12.0-15.0 [facility] Comment on above: Performed By: #### L [id number] #### [facility] ([facility]) [address] [place] [address] Immature granulocytes (Bld) [#/Vol] 0.03 10*3/uL Normal 0.00-0.20 [facility] Comment on above: Performed By: #### L [id number] #### [facility] ([facility]) [address] [place] [address] Immature granulocytes/100 WBC (Bld) 0.3 % Normal 0.0-1.0 [facility] Comment on above: Performed By: #### L [id number] #### [facility] ([facility]) [address] [place] [address] Lymphocytes (Bld) [#/Vol] 2.02 10*3/uL Normal 1.20-4.00 [facility] Comment on above: Performed By: #### L [id number] #### [facility] ([facility]) [address] [place] [address] Lymphocytes/100 WBC (Bld) 23.5 % Normal 20.0-45.0 [facility] Comment on above: Performed By: #### L [id number] #### [facility] ([facility]) [address] [place] [address] MCH (RBC) [Entitic mass] 27.2 pg Normal 27.0-33.0 [facility] Comment on above: Performed By: #### L [id number] #### [facility] ([facility]) [address] [facility] [place] [address] MCV (RBC) [Entitic vol] 82.7 fL Normal 82.0-98.0 [facility] Comment on above: Performed By: #### L [id number] #### [facility] ([facility]) [address] [place] [address] Monocytes (Bld) [#/Vol] 0.56 10*3/uL Normal 0.10-1.00 [facility] Comment on above: Performed By: #### L [id number] #### [facility] ([facility]) [address] [place] [address] Monocytes/100 WBC (Bld) 6.5 % Normal 5.0-12.0 [facility] Comment on above: Performed By: #### L [id number] #### [facility] ([facility]) [address] [place] [address] Neutrophils (Bld) [#/Vol] 5.74 10*3/uL Normal 1.60-7.60 [facility] Comment on above: Performed By: #### L [id number] #### [facility] ([facility]) [address] [place] [address] Neutrophils/100 WBC (Bld) 67.0 % Normal 40.0-72.0 [facility] Comment on above: Performed By: #### L [id number] #### [facility] ([facility]) [address] [place] [address] NRBC (PER 100 WBCS) BY AUTOMATED COUNT 0.0 % Normal 0 [facility] Comment on above: Performed By: #### L [id number] #### [facility] ([facility]) [address] [place] [address] PLATELETS (10*3/UL) IN BLOOD AUTOMATED COUNT 233 10*3/uL Normal 150-400 [facility] Comment on above: Performed By: #### L [id number] #### [facility] ([facility]) [address] [place] [address] RBC (Bld) [#/Vol] 4.34 10*6/uL Normal 3.80-5.00 [facility] Comment on above: Performed By: #### L [id number] #### [facility] ([facility]) [address] [place] [address] WBC (Bld) [#/Vol] 8.58 10*3/uL Normal 4.00-10.60 [facility] Comment on above: Performed By: #### L [id number] #### [facility] ([facility]) [address] [place] [address] COMPREHENSIVE METABOLIC PANE Alec 06-29-2024 Albumin [Mass/Vol] 3.8 g/dL Normal 3.5-5.7 [facility] Comment on above: Performed By: #### L [id number] ####[facility] (BEAKER)[address] [place] [address] ALP [Catalytic activity/Vol] 64 U/L Normal 34-104 [facility] Comment on above: Performed By: #### L [id number] ####[facility] ([facility])[address] [place] [address] ALT [Catalytic activity/Vol] 35 U/L Normal 7-52 [facility] Comment on above: Performed By: #### L [id number] ####[facility] ([facility])[address] [place] [address] Anion gap [Moles/Vol] 12 mmol/L Normal 7-20 [facility] Comment on above: Performed By: #### L [id number] ####[facility] ([facility])[address] [place] [address] AST [Catalytic activity/Vol] 21 U/L Normal 13-39 [facility] Comment on above: Performed By: #### L [id number] ####[facility] ([facility])[address] [place] [address] Bilirubin [Mass/Vol] 0.4 mg/dL Normal 0.3-1.0 [facility] Comment on above: Performed By: #### L [id number] ####[facility] ([facility])[address] [place] [address] Calcium [Mass/Vol] 8.5 mg/dL Low 8.6-10.3 [facility] Comment on above: Performed By: #### L [id number] ####[facility] ([facility])[address] [place] [address] Chloride [Moles/Vol] 112 mmol/L High 98-107 [facility] Comment on above: Performed By: #### L [id number] ####[facility] ([facility])[address] [place] [address] CO2 [Moles/Vol] 22 mmol/L Normal 21-31 [facility] Comment on above: Performed By: #### L [id number] ####[facility] ([facility])[address] [place] [address] Creatinine [Mass/Vol] 0.92 mg/dL Normal 0.60-1.20 [facility] Comment on above: Performed By: #### L [id number] ####[facility] ([facility])[address] [place] [address] GLOMERULAR FILTRATION RATE ML/MIN/1.73 SQ M.PREDICTED 71.3 mL/min/1.73m*2 Normal >60.0 [facility] Comment on above: Result Comment: [facility]???s estimated glomerular filtration rate (eGFR) will [...] L [id number] ####[facility] ([facility])[address] [place] [address] Glucose [Mass/Vol] 108 mg/dL High 70-100 [facility] Comment on above: Performed By: #### L [id number] ####[facility] ([facility])[address] [place] [address] Potassium [Moles/Vol] 3.7 mmol/L Normal 3.5-5.1 [facility] Comment on above: Performed By: #### L [id number] ####[facility] ([facility])[address] [place] [address] Protein [Mass/Vol] 6.1 g/dL Normal 6.0-8.3 [facility] Comment on above: Performed By: #### L [id number] ####[facility] ([facility])[address] [place] [address] Sodium [Moles/Vol] 142 mmol/L Normal 136-145 [facility] Comment on above: Performed By: #### L [id number] ####[facility] ([facility])[address] [place] [address] Urea nitrogen [Mass/Vol] 11 mg/dL Normal 7-25 [facility] Comment on above: Performed By: #### L [id number] ####[facility] ([facility])[address] [place] [address] UREA NITROGEN/CREATININE (MASS RATIO) IN SER/PLAS 12.0 Normal [facility] Comment on above: Performed By: #### L [id number] ####[facility] ([facility])[address] [place] [address] MAGNESIUMon 06-29-2024 Magnesium [Mass/Vol] 1.7 mg/dL Low 1.9-2.7 [facility] Comment on above: Performed By: #### L [id number] ####[facility] ([facility])[address] [place] [address] PHOSPHORUSon 06-29-2024 Magnesium [Mass/Vol] 2.9 mg/dL Normal 2.5-5.0 [facility] Comment on above: Performed By: #### L [id number] ####[facility] ([facility])[address] [place] [address] PROTIME-INRon 06-29-2024 INR IN PPP BY COAGULATION ASSAY 0.99 Normal 0.90-1.10 [facility] Comment on above: Result Comment: ACCC [...] 1995;108:[id number]. Performed By: #### L [id number] #### [facility] ([facility]) [address] [place] [address] PROTHROMBIN TIME (PT) IN PPP BY COAGULATION ASSAY 13.1 Seconds Normal 12.3-14.8 [facility] Comment on above: Performed By: #### L [id number] #### [facility] ([facility]) [address] [place] [address] TROPONIN Ion 06-29-2024 Troponin I.cardiac [Mass/Vol] 0.10 ng/mL High 0.00-0.04 [facility] Comment on above: Performed By: #### L [id number] ####[facility] ([facility])[address] [place] [address] Office Visiton 06-21-2024 Follow-up visit [id number] Aby Madrigal S 1965 F Date Provider Department Center 06/21/2024 GOMEZ KENDALL RIAZ [place] Family History Problem Relation Age of Onset Lung cancer Mother No Known Problems Father Lung cancer Sister Family Status - Relation Status Age at Mother Father Sister Level of Service:84152 CT OFFICE/OUTPATIENT ESTABLISHED MOD MDM 30 MIN Normal [facility] Office Visiton 05-26-2024 Follow-up visit [id number] RohanAby S 1965 F Date Provider Department Center 05/26/2024 BIJAN LAWLER RIAZ [place] Family History Problem Relation Age of Onset Lung cancer Mother No Known Problems Father Lung cancer Sister Family Status - Relation Status Age at Mother Father Sister Level of Service:81884 CT OFFICE/OUTPATIENT NEW MODERATE MDM 45 MINUTES Normal [facility] Outside Colonoscopyon 2022 Outside Colonoscopy [id number] 0CD:127 Normal [facility] Reminderson 11-27-2022 Reminders - From: Na Hayes LPN To: N - Clinical; Sent: 11/27/2022 12:46:10 EST Show up: 10/25/2032 07:00:00 EST Subject: colonoscopy recall Due Date/Time: 11/25/2032 07:00:00 EST Reminder/Recall Patient is due for screening colonoscopy 11/25/2032. Normal [facility] Lab Reportson 11-24-2022 Lab Reports [id number] 0CD:127 Normal [facility]on [facility]-24 SARS-CoV-2 (COVID-19) RNA BECK+probe Ql (Unsp spec) Not detected Normal NOT DETECTED [facility] Comment on above: Result Comment: This test is not yet approved or cleared by the [place] FDA. When there are no FDA-approved or cleared tests available, and other criteria are met, FDA can make tests available under an emergency access mechanism called an Emergency Use Authorization (EUA). The EUA for this test is supported by the [place] of Health and Human Service's (HHS's) declaration [...] consistent with SARS-CoV-2. Performed By: #### C [facility] #### [facility] Laboratory [address] [place] [id number] Dr. Rich Cutler Consent for Procedure/Surger yon 10-07-2022 Consent for Procedure/Surgery [id number] Normal [facility] Ambulatory Visit Summaryon 1 12-06-2021 Ambulatory [...] : DR KENDRA MORAN . Admission #: [id number] Family : Order #: [id number] CLICK HERE TO VIEW EXAM RADIOLOGY REPORT [...] chronic thrombus visualized Compressibility: Normal Flow: Normal Hospital Educator: Dist/med calf 3.3mm with 0s reflux. Tech Note: Incompetent SFJ and GSV. Patent varicose vein mid/med calf 2.9mm with 0s reflux. Patent varicose vein prox/post calf 3.8mm with 0s reflux. Patent varicose vein dist/med thigh 3.8mm with 2.0s reflux. CONCLUSION: 1. Mild right and knqo-ma-mmhjbqot left great saphenous vein venous insufficiency with dilatation 2. Left saphenous popliteal junction reflux 3. Mild left anterior accessory saphenous vein venous insufficiency without dilatation 4. Small bilateral incompetent varicose veins Dictated by: Adelia Lezama MD on 10/02/2022 at 13:36 Approved by: Adelia Lezama MD on 10/02/2022 at 13:[address] [facility] ECHOCARDIO M/2D COMPLETEon 1 11-30-2021 ECHOCARDIO M/2D COMPLETE Patient: ABY MADRIGAL Exam Date: 09/30/2022 : 1965 Gender:F Ordering : DR KENDRA MORAN . Admission #: [id number] Family : Order #: [id number] CLICK HERE TO VIEW EXAM ECHOCARDIOGRAM REPORT [...] Normal [facility] BNPon 09-24-2022 Natriuretic peptide B (Bld) [Mass/Vol] 501.0 pg/mL Normal <=900.0 [facility] Comment on above: Performed By: #### C VDTB #### [facility] [address] [place] [address] Dr. iRch Cutler CBC AUTO DIFFon 09-24-2022 BASO # 0.1 103/ul Normal 0.0-0.1 [facility] Comment on above: Performed By: #### C VDTBH #### [facility] [address] [place] [address] Dr. Rich Cutler Basophils/100 WBC (Bld) 0.8 % Normal 0.2-2.0 [facility] Comment on above: Performed By: #### C VDTBH #### [facility] [address] [place] [address] Dr. Rich Cutler EO # 0.3 103/ul Normal 0.0-0.7 [facility] Comment on above: Performed By: #### C VDTBH #### [facility] [address] [place] [address] Dr. Rich Cutler Eosinophils/100 WBC (Bld) 3.4 % Normal 0.9-7.0 [facility] Comment on above: Performed By: #### C VDTBH #### [facility] [address] [place] [address] Dr. Rich Cutler Erythrocyte distribution width (RBC) [Ratio] 13.3 % Normal 11.0-15.0 [facility] Comment on above: Performed By: #### C VDTBH #### [facility] [address] [place] [address] Dr. Rich Cutler Hematocrit (Bld) [Volume fraction] 40.5 % Normal 36.0-48.0 [facility] Comment on above: Performed By: #### C VDTBH #### [facility] [address] [place] [address] Dr. Rich Cutler Hemoglobin (Bld) [Mass/Vol] 13.1 g/dL Normal 12.0-16.0 [facility] Comment on above: Performed By: #### C VDTBH #### [facility] [address] [place] [address] Dr. Rich Cutler IG # 0.02 10e3/ul Normal 0.00-0.03 [facility] Comment on above: Performed By: #### C VDTBH #### [facility] [address] [place] [address] Dr. Rich Cutler IG % 0.3 % Normal 0.0-0.5 [facility] Comment on above: Performed By: #### C VDTBH #### [facility] [address] [place] [address] Dr. Rich Cutler LYMPH # 2.7 103/ul Normal 1.2-3.8 [facility] Comment on above: Performed By: #### C VDTBH #### [facility] [address] [place] [address] Dr. Rich Cutler Lymphocytes/100 WBC (Bld) 35.4 % Normal 20.5-60.0 [facility] Comment on above: Performed By: #### C VDTBH #### [facility] [address] [place] [address] Dr. Rich Cutler MANUAL DIFF REQ NO Normal [facility] Comment on above: Performed By: #### C VDTBH #### [facility] [address] [place] [address] Dr. Rich Cutler MCH (RBC) [Entitic mass] 28.2 pg Normal 26.7-34.0 [facility] Comment on above: Performed By: #### C VDTBH #### [facility] [address] [place] [address] Dr. Rich Cutler MCHC (RBC) [Mass/Vol] 32.3 g/dL Normal 29.9-35.2 [facility] Comment on above: Performed By: #### C VDTBH #### [facility] [address] [place] [address] Dr. Rich Cutler MCV (RBC) [Entitic vol] 87.3 fL Normal 81.0-99.0 [facility] Comment on above: Performed By: #### C VDTBH #### [facility] [address] [place] [address] Dr. Rich Cutler MONO # 0.5 103/ul Normal 0.3-0.8 [facility] Comment on above: Performed By: #### C VDTBH #### [facility] [address] [place] [address] Dr. Rich Cutler Monocytes/100 WBC (Bld) 6.5 % Normal 1.7-12.0 [facility] Comment on above: Performed By: #### C VDTBH #### [facility] [address] [place] [address] Dr. Rich Cutler NEUT # 4.1 103/ul Normal 1.4-6.5 [facility] Comment on above: Performed By: #### C VDTBH #### [facility] [address] [place] [address] Dr. Rich Cutler Neutrophils/100 WBC (Bld) 53.6 % Normal 43.0-75.0 [facility] Comment on above: Performed By: #### C VDTBH #### [facility] [address] [place] [address] Dr. Rich Cutler Platelet mean volume (Bld) [Entitic vol] 10.3 fL Normal 9.5-13.5 [facility] Comment on above: Performed By: #### C VDTBH #### [facility] [address] [place] [address] Dr. Rich Cutler PLT 283 103/ul Normal 150-450 [facility] Comment on above: Performed By: #### C VDTBH #### [facility] [address] [place] [address] Dr. Rich Cutler RBC 4.64 106/ul Normal 4.20-5.40 [facility] Comment on above: Performed By: #### C VDTBH #### [facility] [address] [place] [address] Dr. Rich Cutler WBC 7.6 103/ul Normal 4.0-11.0 [facility] Comment on above: Performed By: #### C VDTBH #### [facility] [address] [place] [address] Dr. Rich Cutler INSULINon 09-24-2022 Insulin 15.1 uIU/mL Normal 2.6-24.9 [facility] Comment on above: Performed By: #### C VDTBH #### [facility] [address] [place] [address] Dr. Rich Cutler PROF 14(COMP METB)on 022 Albumin [Mass/Vol] 3.5 g/dL Normal 3.4-5.0 [facility] Comment on above: Performed By: #### C VDTBH #### [facility] [address] [place] [address] Dr. Rich Cutler Albumin/Globulin [Mass ratio] 1.0 {ratio} Normal [facility] Comment on above: Performed By: #### C VDTBH #### [facility] [address] [place] [address] Dr. Rich Cutler ALP [Catalytic activity/Vol] 91 U/L Normal 46-116 [facility] Comment on above: Performed By: #### C VDTBH #### [facility] [address] [place] [address] Dr. Rich Cutler ALT [Catalytic activity/Vol] 47 U/L Normal 14-59 [facility] Comment on above: Performed By: #### C VDTBH #### [facility] [address] [address] [address] Rich Cutler Anion gap [Moles/Vol] 11.7 mmol/L Normal [facility] Comment on above: Performed By: #### C VDTBH #### [facility] [address] [address] [address] Rich Cutler AST [Catalytic activity/Vol] 24 U/L Normal 15-37 [facility] Comment on above: Performed By: #### C VDTBH #### [facility] [address] [address] [address] Rich Cutler Bilirubin [Mass/Vol] 0.2 mg/dL Normal 0.2-1.0 [facility] Comment on above: Performed By: #### C VDTBH #### [facility] [address] [place] [address] Dr. Rich Cutler Calcium [Mass/Vol] 8.9 mg/dL Normal 8.5-10.1 [facility] Comment on above: Performed By: #### C VDTBH #### [facility] [address] [place] [address] Dr. Rich Cutler Chloride [Moles/Vol] 105 mmol/L Normal 98-107 [facility] Comment on above: Performed By: #### C VDTBH #### [facility] [address] [place] [address] Dr. Rich Cutler CO2 [Moles/Vol] 28.1 mmol/L Normal 21.0-32.0 [facility] Comment on above: Performed By: #### C VDTBH #### [facility] [address] [place] [address] Dr. Rich Cutler Creatinine [Mass/Vol] 1.13 mg/dL Critically high 0.55-1.02 [facility] Comment on above: Performed By: #### C VDTBH #### [facility] [address] [place] [address] Dr. Rich Cutler EGFR-AF WALLISIAN 60 mL/min/1.73m2 Normal >=60 [facility] Comment on above: Performed By: #### C VDTBH #### [facility] [address] [address] [address] Rich Cutler EGFR-NON AF WALLISIAN 49 mL/min/1.73m2 Critically low >=60 [facility] Comment on above: Performed By: #### C VDTBH #### [facility] [address] [address] [address] Rich Cutler Globulin (S) [Mass/Vol] 3.5 g/dL Normal [facility] Comment on above: Performed By: #### C VDTBH #### [facility] [address] [address] [address] Rich Cutler Glucose [Mass/Vol] 119 mg/dL Critically high 74-106 [facility] Comment on above: Performed By: #### C VDTBH #### [facility] [address] [address] [address] Rich Cutler Potassium [Moles/Vol] 3.8 mmol/L Normal 3.5-5.1 [facility] Comment on above: Performed By: #### C VDTBH #### [facility] [address] [address] [address] Rich Cutler Protein [Mass/Vol] 7.0 g/dL Normal 6.4-8.2 [facility] Comment on above: Performed By: #### C VDTBH #### [facility] [address] [address] [address] Rich Cutler Sodium [Moles/Vol] 141 mmol/L Normal 136-145 [facility] Comment on above: Performed By: #### C VDTBH #### [facility] [address] [address] [address] Rich Cutler Urea nitrogen [Mass/Vol] 16.0 mg/dL Normal 7.0-18.0 [facility] Comment on above: Performed By: #### C VDTBH #### [facility] [address] [address] [address] Rich Cutler Urea nitrogen/Creatinine [Mass ratio] 14.2 mg/mg Normal [facility] Comment on above: Performed By: #### C VDTBH #### [facility] [address] [address] [address] Rich Cutler TROPONIN, HIGH SENSITIVITYon 09-24-2022 HSTROP 10.6 pg/mL Normal 4.0-51.3 [facility] Comment on above: Result Comment: CUT- OFF POINTS HAVE BEEN ESTABLISHED BASED ON THE FOURTH UNIVERSAL DEFINITIONS OF MYOCARDIAL INFARCTION. THE UPPER REFERENCE LIMIT (URL) OF TROPONIN, DEFINED THE 99TH PERCENTILE OF cTnI DISTRIBUTION IN A REFERENCE POPULATION, HAS BEEN CONFIRMED THE DECISION THRESHOLD FOR ME DIAGNOSIS. Performed By: #### C VDTBH #### [facility] [address] [address] [address] Rich Cutler XR CHEST 1 Von [...] Normal [facility] CBC AUTO DIFFon 09-23-2022 BASO # 0.1 103/ul Normal 0.0-0.1 [facility] Comment on above: Performed By: #### C BC #### [facility] [address] [place] [address] Dr. Rich Cutler Basophils/100 WBC (Bld) 0.8 % Normal 0.2-2.0 [facility] Comment on above: Performed By: #### C BC #### [facility] [address] [place] [address] Dr. Rich Cutler EO # 0.2 103/ul Normal 0.0-0.7 [facility] Comment on above: Performed By: #### C BC #### [facility] [address] [place] [address] Dr. Rich Cutler Eosinophils/100 WBC (Bld) 3.5 % Normal 0.9-7.0 [facility] Comment on above: Performed By: #### C BC #### [facility] [address] [place] [address] Dr. Rich Cutler Erythrocyte distribution width (RBC) [Ratio] 13.4 % Normal 11.0-15.0 [facility] Comment on above: Performed By: #### C BC #### [facility] [address] [place] [address] Dr. Rich Cutler Hematocrit (Bld) [Volume fraction] 42.3 % Normal 36.0-48.0 [facility] Comment on above: Performed By: #### C BC #### [facility] [address] [place] [address] Dr. Rich Cutler Hemoglobin (Bld) [Mass/Vol] 13.4 g/dL Normal 12.0-16.0 [facility] Comment on above: Performed By: #### C BC #### [facility] [address] [place] [address] Dr. Rich Cutler IG # 0.03 10e3/ul Normal 0.00-0.03 [facility] Comment on above: Performed By: #### C BC #### [facility] [address] [place] [address] Dr. Rich Cutler IG % 0.5 % Normal 0.0-0.5 [facility] Comment on above: Performed By: #### C BC #### [facility] [address] [place] [address] Dr. Rich Cutler LYMPH # 2.9 103/ul Normal 1.2-3.8 [facility] Comment on above: Performed By: #### C BC #### [facility] [address] [place] [address] Dr. Rich Cutler Lymphocytes/100 WBC (Bld) 44.0 % Normal 20.5-60.0 [facility] Comment on above: Performed By: #### C BC #### [facility] [address] [place] [address] Dr. Rich Cutler MANUAL DIFF REQ NO Normal [facility] Comment on above: Performed By: #### C BC #### [facility] [address] [place] [address] Dr. Rich Cutler MCH (RBC) [Entitic mass] 28.4 pg Normal 26.7-34.0 [facility] Comment on above: Performed By: #### C BC #### [facility] [address] [place] [address] Dr. Rich Cutler MCHC (RBC) [Mass/Vol] 31.7 g/dL Normal 29.9-35.2 [facility] Comment on above: Performed By: #### C BC #### [facility] [address] [place] [address] Dr. Rich Cutler MCV (RBC) [Entitic vol] 89.6 fL Normal 81.0-99.0 [facility] Comment on above: Performed By: #### C BC #### [facility] [address] [place] [address] Dr. Rich Cutler MONO # 0.4 103/ul Normal 0.3-0.8 [facility] Comment on above: Performed By: #### C BC #### [facility] [address] [place] [address] Dr. Rich Cutler Monocytes/100 WBC (Bld) 6.6 % Normal 1.7-12.0 [facility] Comment on above: Performed By: #### C BC #### [facility] [address] [place] [address] Dr. Rich Cutler NEUT # 2.9 103/ul Normal 1.4-6.5 [facility] Comment on above: Performed By: #### C BC #### [facility] [address] [place] [address] Dr. Rich Cutler Neutrophils/100 WBC (Bld) 44.6 % Normal 43.0-75.0 [facility] Comment on above: Performed By: #### C BC #### [facility] [address] [place] [address] Dr. Rich Cutler Platelet mean volume (Bld) [Entitic vol] 11.0 fL Normal 9.5-13.5 [facility] Comment on above: Performed By: #### C BC #### [facility] [address] [place] [address] Dr. Rich Cutler PLT 272 103/ul Normal 150-450 [facility] Comment on above: Performed By: #### C BC #### [facility] [address] [place] [address] Dr. Rich Cutler RBC 4.72 106/ul Normal 4.20-5.40 [facility] Comment on above: Performed By: #### C BC #### [facility] [address] [place] [address] Dr. Rich Cutler WBC 6.5 103/ul Normal 4.0-11.0 [facility] Comment on above: Performed By: #### C BC #### [facility] [address] [place] [address] Dr. Rich Cutler FREE THYROXINE INDEX T7on FTI 2.16 Normal 1.30-4.50 [facility] Comment on above: Performed By: #### L IPID, TSH, T7, CMP #### [facility] [address] [place] [address] Dr. Rich Cutler T3U 30.0 % Normal 30.0-39.0 [facility] Comment on above: Performed By: #### L IPID, TSH, T7, CMP #### [facility] [address] [place] [address] Dr. Rich Cutler T4 [Mass/Vol] 7.20 ug/dL Normal 4.80-13.90 [facility] Comment on above: Performed By: #### L IPID, TSH, T7, CMP #### [facility] [address] [place] [address] Dr. Rich Cutler GLYCOHEMOGLOBIN A1Con 2021 ADA RECOMMENDATION SEE BELOW Normal [facility] Comment on above: Result Comment: ADA RECOMMENDED LIMIT 4.0 - 6.0 ADA THERAPEUTIC TARGET < 7.0 ACTION SUGGESTED > 7.0 Performed By: #### A 1C #### [facility] [address] [address] [address] Rich Cutler Glucose [Mass/Vol] 128 mg/dL Normal [facility] Comment on above: Performed By: #### A 1C #### [facility] [address] [address] [address] Rich Cutler HbA1c (Bld) [Mass fraction] 6.1 % Normal 4.5-6.2 [facility] Comment on above: Performed By: #### A 1C #### [facility] [address] [place] [address] Dr. Rich Cutler IRONon 09-23-2022 Iron [Mass/Vol] 64.0 ug/dL Normal 50.0-170.0 [facility] Comment on above: Performed By: #### C VDTBH #### [facility] [address] [place] [address] Dr. Rich Cutler LIPID PROFILEon 09-23-2022 CHOL-HDL RATIO NORM SEE BELOW Normal [facility] Comment on above: Result Comment: 3.3 - 4.4 LOW RISK 4.4 - 7.1 AVERAGE RISK 7.1 - 11.0 MODERATE RISK >11.0 HIGH RISK Performed By: #### L IPID, TSH, T7, CMP #### [facility] [address] [place] [address] Dr. Rich Cutler Cholesterol [Mass/Vol] 237 mg/dL Critically high <=200 [facility] Comment on above: Performed By: #### L IPID, TSH, T7, CMP #### [facility] [address] [address] [address] Rich Cutler Cholesterol in HDL [Mass/Vol] 44 mg/dL Normal 40-60 [facility] Comment on above: Performed By: #### L IPID, TSH, T7, CMP #### [facility] [address] [address] [address] Rich Cutler Cholesterol in LDL [Mass/Vol] 172.2 mg/dL Normal [facility] Comment on above: Performed By: #### L IPID, TSH, T7, CMP #### [facility] [address] [address] [address] Rich Cutler Cholesterol.total/C holesterol in HDL [Mass ratio] 5.4 {ratio} Normal [facility] Comment on above: Performed By: #### L IPID, TSH, T7, CMP #### [facility] [address] [address] [address] Rich Cutler HDL NORMAL > or = 60 mg/dl - LO W CARDIOVASCULAR RISK <40 mg/dl - HIGH CARDIOVASCULAR RISK Normal [facility] Comment on above: Performed By: #### L IPID, TSH, T7, CMP #### [facility] [address] [address] [address] Rich Cutler LDL CALC NORMAL SEE BELOW Normal [facility] Comment on above: Result Comment: <100 mg/dl OPTIMAL 100 - 129 mg/dl NEAR OR ABOVE OPTIMAL 130 - 159 mg/dl BORDERLINE HIGH 160 - 189 mg/dl HIGH >190 mg/dl VERY HIGH Performed By: #### L IPID, TSH, T7, CMP #### [facility] [address] [place] [address] Dr. Rich Cutler Triglyceride [Mass/Vol] 104 mg/dL Normal <=150 [facility] Comment on above: Performed By: #### L IPID, TSH, T7, CMP #### [facility] [address] [address] [address] Rich Cutler VLDL CALC 20.8 mg/dL Normal [facility] Comment on above: Performed By: #### L IPID, TSH, T7, CMP #### [facility] [address] [address] [address] Rich Cutler PROF 14(COMP METB)on 022 Albumin [Mass/Vol] 3.5 g/dL Normal 3.4-5.0 [facility] Comment on above: Performed By: #### L IPID, TSH, T7, CMP #### [facility] [address] [address] [address] Rich Cutler Albumin/Globulin [Mass ratio] 0.9 {ratio} Normal [facility] Comment on above: Performed By: #### L IPID, TSH, T7, CMP #### [facility] [address] [address] [address] Rich Cutler ALP [Catalytic activity/Vol] 93 U/L Normal 46-116 [facility] Comment on above: Performed By: #### L IPID, TSH, T7, CMP #### [facility] [address] [place] [address] Dr. Rich Cutler ALT [Catalytic activity/Vol] 44 U/L Normal 14-59 [facility] Comment on above: Performed By: #### L IPID, TSH, T7, CMP #### [facility] [address] [place] [address] Dr. Rich Cutler Anion gap [Moles/Vol] 8.5 mmol/L Normal [facility] Comment on above: Performed By: #### L IPID, TSH, T7, CMP #### [facility] [address] [place] [address] Dr. Rich Cutler AST [Catalytic activity/Vol] 26 U/L Normal 15-37 [facility] Comment on above: Performed By: #### L IPID, TSH, T7, CMP #### [facility] [address] [place] [address] Dr. Rich Cutler Bilirubin [Mass/Vol] 0.3 mg/dL Normal 0.2-1.0 [facility] Comment on above: Performed By: #### L IPID, TSH, T7, CMP #### [facility] [address] [place] [address] Dr. Rich Cutler Calcium [Mass/Vol] 9.0 mg/dL Normal 8.5-10.1 [facility] Comment on above: Performed By: #### L IPID, TSH, T7, CMP #### [facility] [address] [place] [address] Dr. Rich Cutler Chloride [Moles/Vol] 106 mmol/L Normal 98-107 [facility] Comment on above: Performed By: #### L IPID, TSH, T7, CMP #### [facility] [address] [place] [address] Dr. Rich Cutler CO2 [Moles/Vol] 31.0 mmol/L Normal 21.0-32.0 [facility] Comment on above: Performed By: #### L IPID, TSH, T7, CMP #### [facility] [address] [address] [address] Rich Cutler Creatinine [Mass/Vol] 1.11 mg/dL Critically high 0.55-1.02 [facility] Comment on above: Performed By: #### L IPID, TSH, T7, CMP #### [facility] [facility] [address] [place] [address] Dr. Rich Cutler EGFR-AF WALLISIAN >60 Normal >=60 [facility] Comment on above: Performed By: #### L IPID, TSH, T7, CMP #### [facility] [address] [place] [address] Dr. Rich Cutler EGFR-NON AF WALLISIAN 50 mL/min/1.73m2 Critically low >=60 [facility] Comment on above: Performed By: #### L IPID, TSH, T7, CMP #### [facility] [address] [place] [address] Dr. Rich Cutler Globulin (S) [Mass/Vol] 3.7 g/dL Normal [facility] Comment on above: Performed By: #### L IPID, TSH, T7, CMP #### [facility] [address] [place] [address] Dr. Rich Cutler Glucose [Mass/Vol] 121 mg/dL Critically high 74-106 [facility] Comment on above: Performed By: #### L IPID, TSH, T7, CMP #### [facility] [address] [place] [address] Dr. Rich Cutler Potassium [Moles/Vol] 4.5 mmol/L Normal 3.5-5.1 [facility] Comment on above: Performed By: #### L IPID, TSH, T7, CMP #### [facility] [address] [place] [address] Dr. Rich Cutler Protein [Mass/Vol] 7.2 g/dL Normal 6.4-8.2 [facility] Comment on above: Performed By: #### L IPID, TSH, T7, CMP #### [facility] [address] [address] [address] Rich Cutler Sodium [Moles/Vol] 141 mmol/L Normal 136-145 [facility] Comment on above: Performed By: #### L IPID, TSH, T7, CMP #### [facility] [address] [place] [address] Dr. Rich Cutler Urea nitrogen [Mass/Vol] 16.0 mg/dL Normal 7.0-18.0 [facility] Comment on above: Performed By: #### L IPID, TSH, T7, CMP #### [facility] [address] [place] [address] Dr. Rich Cutler Urea nitrogen/Creatinine [Mass ratio] 14.4 mg/mg Normal [facility] Comment on above: Performed By: #### L IPID, TSH, T7, CMP #### [facility] [address] [place] [address] Dr. Rich Cutler TSHon 09-23-2022 TSH 3.915 uIU/mL Critically high 0.358-3.740 [facility] Comment on above: Performed By: #### L IPID, TSH, T7, CMP #### [facility] [address] [place] [address] Dr. Rich Cutler Physician Referralon 022 Physician Referral [id number] 00 [id number] Normal [facility] Vital Signs Date Time Vital Sign Value Performing Clinician Deidre gagnon 06-01-2025 12:58-0400 Body height 162.6 cm Afsaneh Jacome APRN-RECONCILER Work Phone: [facility] 06-01-2025 12:58-0400 Body mass index (BMI) [Ratio] 33.27 kg/m2 Afsaneh Jacome RAMP AGENT-RECONCILER Work Phone: [facility] 06-01-2025 12:58-0400 Body weight 87.91 kg Afsaneh Jacome RAMP AGENT-RECONCILER Work Phone: [facility] 06-01-2025 12:58-0400 Diastolic blood pressure 78 mm[Hg] Afsaneh Jacome RAMP AGENT-RECONCILER Work Phone: [facility] 06-01-2025 12:58-0400 Systolic blood pressure 130 mm[Hg] Afsaneh Jacome RAMP AGENT-RECONCILER Work Phone: [facility] 03-03-2025 11:02-0400 Body height 160.02 cm [facility] 03-03-2025 11:02-0400 Body mass index (BMI) [Ratio] 35.6 kg/m2 [facility] 03-03-2025 11:02-0400 Body temperature 97.8 [degF] [facility] 03-03-2025 11:02-0400 Body weight 91.34 kg [facility] 03-03-2025 11:02-0400 Diastolic blood pressure 69 mm[Hg] [facility] 03-03-2025 11:02-0400 Heart rate 82 /min [facility] 03-03-2025 11:02-0400 Respiratory rate 18 /min [facility] 03-03-2025 11:02-0400 SaO2% (BldA) [Mass fraction] 96 % [facility] 03-03-2025 11:02-0400 Systolic blood pressure 108 mm[Hg] [facility] 03-02-2025 09:18-0400 Body height 162.6 cm Farzana Ely RAMP AGENT-RECONCILER Work Phone: [facility] 03-02-2025 09:18-0400 Body mass index (BMI) [Ratio] 34.81 kg/m2 Farzana Ely RAMP AGENT-RECONCILER Work Phone: [facility] 03-02-2025 09:18-0400 Body weight 91.99 kg Farzana Ely RAMP AGENT-RECONCILER Work Phone: [facility] 03-02-2025 09:18-0400 Diastolic blood pressure 68 mm[Hg] Farzana Ely RAMP AGENT-RECONCILER Work Phone: [facility] 03-02-2025 09:18-0400 Systolic blood pressure 118 mm[Hg] Farzana Ely RAMP AGENT-RECONCILER Work Phone: [facility] 10-06-2022 15:36-0500 Blood Pressure Location Umm NILL [facility] 10-06-2022 15:36-0500 Diastolic blood pressure 86 mm[Hg] Umm NILL [facility] 10-06-2022 15:36-0500 Heart rate 72 /min Umm NILL [facility] 10-06-2022 15:36-0500 Respiratory rate 16 /min Umm NILL [facility] 10-06-2022 15:36-0500 Systolic blood pressure 126 mm[Hg] Umm NILL [facility] Encounters Encounter Date Encounter Type Care Provider Facility Start: 06-01-2025 End: 06-01-2025 Patient encounter procedure Afsaneh Jacome RAMP AGENT-RECONCILER Work Phone: [facility] Work Phone: Start: 06-01-2025 End: 06-01-2025 Periodic preventive med est patient 40-64yrs Afsaneh Jacome RAMP AGENT-RECONCILER Work Phone: [facility] Comment on above: Well woman exam with routine gynecological exam (Primary Dx) Start: 06-01-2025 End: 06-01-2025 ambulatory AFSANEH JACOME [facility] Start: 05-21-2025 End: 05-21-2025 ambulatory Kendra Moran MD Work Phone: [facility] Work Phone: Start: 05-21-2025 End: 05-21-2025 Patient encounter procedure Elie [facility] Work Phone: Start: 05-21-2025 End: 05-21-2025 Patient encounter procedure Elie Leslie Start: 05-21-2025 End: 05-21-2025 ambulatory Kendra Moran MD Work Phone: [facility] Work Phone: Start: 05-14-2025 End: 05-14-2025 ambulatory [facility] Start: 04-23-2025 End: 04-23-2025 ambulatory [facility] Start: 04-10-2025 End: 04-10-2025 ambulatory [facility] Start: 03-03-2025 End: 03-03-2025 ambulatory [facility] Work Phone: Start: 03-03-2025 End: 03-03-2025 Patient encounter procedure [facility] Work Phone: Start: 03-02-2025 End: 03-02-2025 ambulatory [facility] Start: 03-02-2025 End: 03-02-2025 Office outpatient visit 15 minutes [facility] RAMP AGENT-RECONCILER Work Phone: [facility] Comment on above: Genitourinary syndro me of menopause (Primary Dx); PCB (post coital bleeding) Start: 02-26-2025 End: 02-26-2025 ambulatory [facility] Start: 02-07-2025 End: 02-07-2025 ambulatory [facility] Start: 01-09-2025 End: 01-09-2025 ambulatory [facility] Start: 01-02-2025 End: 01-02-2025 ambulatory [facility] Start: 10-26-2024 End: 10-26-2024 ambulatory [facility] Start: 10-03-2024 End: 10-03-2024 ambulatory [facility] Start: 09-04-2024 End: 09-04-2024 ambulatory [facility] Start: 08-29-2024 End: 08-29-2024 ambulatory [facility] Start: 08-04-2024 End: 08-04-2024 ambulatory [facility] Start: 07-20-2024 ambulatory [facility] Start: 07-20-2024 ambulatory KENDRA M [facility] Ambulatory [facility] Start: 07-18-2024 ambulatory [facility] Start: 07-18-2024 End: 07-18-2024 Emergency department patient visit HERMINIA JULIAN [facility] Start: 07-18-2024 End: 07-18-2024 ambulatory [facility] Start: 07-11-2024 Evaluation and manag ement of inpatient [facility] Start: 07-11-2024 Emergency department patient visit FEDERICA JACOBSON [facility] Start: 07-11-2024 End: 07-12-2024 Evaluation and management of inpatient JOSE BETANCUR [facility] Start: 07-10-2024 End: 07-10-2024 ambulatory [facility] Start: 06-30-2024 Evaluation and manag ement of inpatient [facility] Start: 06-30-2024 Evaluation and manag ement of inpatient [facility] Start: 06-29-2024 End: 07-01-2024 Evaluation and management of inpatient KENDRA [facility] Start: 06-21-2024 End: 06-21-2024 ambulatory [facility] Start: 05-26-2024 End: 05-26-2024 ambulatory [facility] Start: 11-26-2022 Encounter for preprocedural laboratory examination DR UMM LANDON . [facility] Start: 11-25-2022 End: 11-26-2022 ambulatory Umm LANDON Facility:CD:[id number] Start: 11-20-2022 End: 11-21-[address] UMM LANDON . Facility:[facility] Start: 11-20-2022 End: 11-21-2022 Encounter for preprocedural laboratory examination DR UMM LANDON . Facility: Start: 10-06-2022 End: 10-07-2022 ambulatory Umm LANDON Facility:[facility] Start: 10-06-2022 End: 10-06-2022 Patient encounter procedure Umm LANDON General Surgery [facility] Start: 10-02-2022 End: 10-03-[address] KENDRA MORAN . Facility:[facility] Start: 09-30-2022 End: 10-01-[address] KENDRA MORAN . Facility:[facility] Start: 09-28-2022 Encounter for genera l adult medical examination without abnormal findings DR KENDRA MORAN . [facility] Start: 09-24-2022 End: 09-24-[address] SYBIL CORDOVA . Facility:[facility] Start: 09-23-2022 End: 09-24-[address] KENDRA MORAN . Facility:[facility] Start: 09-23-2022 End: 09-24-2022 Encounter for general adult medical examination without abnormal findings DR KENDRA MORAN . Facility:[facility] Start: 09-14-[address] KENDRA MORAN . Facili ty:[facility]1 Procedures Date Procedure Procedure Detail Performing Clinician Start: 06-01-2025 Follow-up visit Follow-up AFSANEH JACOME Start: 05-21-2025 X-ray of left knee, four [...] 06-01-2026 Adult BMI Screening Adult BMI Screening [facility] Start: 06-01-2026 Tobacco Screening Tobacco Screening [facility] Start: 03-02-2026 Adult BMI Screening Adult BMI Screening [facility] Start: 03-02-2026 Tobacco Screening Tobacco Screening [facility] Start: 07-23-2025 Influenza vaccination Influenza Vaccine [facility] Start: 06-01-2025 End: 06-01-2025 Patient encounter procedure 06/01/2025 1:00 PM EDT Office Visit [facility] [address] [place] [address] Afsaneh Jacome, RAMP AGENT-RECONCILER [address] [place], [place] [id number] [facility] Start: 05-21-2025 X-ray of left knee, four views XR knee LT 4V* [facility] Start: 05-21-2025 X-ray of right knee, two views XR knee RT 2V [facility] Start: 05-21-2025 XR Knee - left 4 Views [facility] Start: 05-21-2025 XR Knee - right 2 Views [facility] Start: 07-23-2024 COVID-19 Vaccine ( season) COVID-19 Vaccine ( season) [facility] Start: 2014 Administration of varicella zoster vaccine Zoster (Shingles) Vaccine (1 of 2) [facility] Start: 1983 DTaP,Tdap and Td Vaccines (1 - Tdap) DTaP,Tdap and Td Vaccines (1 - Tdap) [facility] Start: 1982 Adult BMI Follow Up Plan Adult BMI Follow Up Plan [facility] Start: 1976 Depression Screening Depression Screening [facility] Immunizations Immunization Date Immunization Notes Care Provider Fa cility 11-07-2021 influenza virus vaccine, unspecified formulation Farzana Marisol RAMP AGENT-RECONCILER Work Phone: [facility] 04-14-2021 SARS-CoV-2 (COVID-19 ) mRNA BNT-162b2 vax Umm LANDON [facility] 03-11-2021 SARS-CoV-2 (COVID-19 ) mRNA BNT-162b2 vax Umm LANDON [facility] NEGATED: Highlighted row has not occurred!10-07-2021 influenza, injectable, quadrivalent, preservative free [facility] Payers Date Payer Category Payer Self-pay 2022 Medicaid [id number] 2022 Medicaid [id number] 5 2019 Private Health Insurance [id number] 2016 Unknown [id number] 1964 Unknown [id number] 2.16.8 [id number] 1964 Unknown [id number] 2.16.8 [id number] 1964 Unknown [id number] 2.16.84 0.1.095016.3.579.2.593 1964 Unknown [id number] 2.16.84 0.1.300240.3.579.2.593 1964 Unknown [id number] 2.16.84 0.1.816234.3.579.2.593 1964 Unknown [id number] 2.16.84 0.1.364968.3.579.2.593 1964 Unknown [id number] 2.16.84 0.1.953165.3.579.2.593 1964 Unknown [id number] 2.16.84 0.1.283475.3.579.2.593 1964 Unknown [id number] 2.16.84 0.1.028794.3.579.2.593 1964 Unknown [id number] 2.16. 840.1.606450.3.579.2.1286 1964 Unknown [id number] 2.16. 840.1.481501.3.579.2.1286 1964 Unknown [id number] 2.16. 840.1.920344.3.579.2.1286 1964 Unknown [id number] 2.16.8 40.1.898228.3.579.2.1286 1964 Unknown [id number] 2.16.8 40.1.442306.3.579.2.1286 1959 Self-pay [id number] 1959 Unknown [id number] Unknown [id number] 2.16.8 [id number] Social History Date Type Detail Facility Start: 10-06-2022 End: 03-02-2025 Tobacco smoking status Ex-smoker (finding) [facility] Tobacco smoking status Never [facility] Start: 01-02-2021 End: 03-02-2025 Sex Assigned At Female Ang Boyd [facility] Start: 10-07-2021 History of tobacco use Current smoke r [facility] History of tobacco use Cigarette Smoker P [facility] Start: 01-02-2021 End: 03-02-2025 Cigarettes smoked current (pack per day) - Reported 1 [facility] Start: 03-02-2025 Tobacco use and exposure Smokeless tobacco non-user [facility] Start: 03-02-2025 End: 06-01-2025 Alcoholic beverage intake Ex-drinker (finding) [facility] Start: 1965 Sex assigned at Not on file [facility] [place] Start: 06-27-2015 End: 03-03-2025 Sex Female (finding) [facility] Start: 1965 Sex Assigned At Female F [facility] Start: 10-07-2021 [facility] Functional Status Date Assessment Result Facility 10-06-2022 Functional Status N/A [facility] denisa [facility]ba Clinical Notes 10-11-2022 to 06-01-2025 Afsaneh Jacome, RAMP AGENT-RECONCILER - 06/01/2025 1:00 PM EDT Note Date & Type Note Facility 06-01-2025 History of Present illness Narrative Aby Madrigal is a pleasant 59 y.o. female who presents for annual barrer and tacker exam. 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 Hysterectomy: yes - [...] yes Last mammogram: 2 years ago at [facility], Dr. Moran orders them Dexa Scan: n/a Colonoscopy:1-2 years ago OB History 3 Para 2 Term AB 1 Living 2 SAB 1 IAB Ectopic Multiple Live Births 2 Past Medical History: Diagnosis Date Anxiety GERD (gastroesophageal reflux disease) Heart attack ([facility]) 06/29/2024 Past Surgical History: Procedure Laterality [...] provided. All questions answered. RTO for annual barrer and tacker exam and / or PRN. ELVIN Singletary 06/01/25 1329 documented in this encounter [facility] 05-14-2025 Note [place] [facility] - [facility] Subjective Aby Madrigal is a 59 y.o. year old female patient being seen for a follow up s/p [facility] ER visit. Patient states she was [...] infarction) (CMS/HCC) Hypokalemia Coronary artery disease involving [place] coronary artery of [place] heart without angina pectoris Depression, major, severe [...] at the [facility] because of chest pain. Workup was negative. [...] Head: Normocephalic and (more content not included)... [facility] 04-23-2025 Note [place] [facility] - [facility] Subjective Aby Madrigal is a 59 [...] infarction) (CMS/HCC) Hypokalemia Coronary artery disease involving [place] coronary artery of [place] heart without angina pectoris Depression, major, severe [...] at the [facility] because of chest pain. Workup was negative. [...] or rales. Chest: (more content not included)... [facility] 04-10-2025 Note REASON FOR VISIT + [...] metoprolol - Jun 2019 CT A/P in [place], [place] performed for abd pain, incidentally detected [...] Diagnosis Date Abnormal ECG Diabetes mellitus ([facility]) Hyperlipidemia Hypertension Obstructive sleep apnea Panic attacks Stroke ([facility]) Past Surgical History: Procedure Laterality Date [...] EC tablet, [place] (more content not included)... [facility] 03-03-2025 Evaluation note Diagnosis Onset Date Resolution Viral URI acute March 03 10:35am Strain of left knee acute May 21, 2025 2:00pm [facility] Work Phone: 1(511) 928-384204-11-2025 History of Present illness Narrative* Farzana Ely, RAMP AGENT-RECONCILER - 03/02/2025 8:45 AM EDT Aby Madrigal [...] Anxiety GERD (gastroesophageal reflux disease) Heart attack ([facility]) 06/29/2024 Hypertension MEDS Current Outpatient Medications Medication [...] ELVIN Ramos 03/02/25 1132 [facility] Instructions* Patient Instructions* ELVIN Ramos - 03/02/2025 [...] urethra, clitoris, and labia. [facility]-2025 NoteUT Cardiology - [facility] Subjective Aby Madrigal is a 59 [...] infarction) (CMS/HCC) Hypokalemia Coronary artery disease involving [place] coronary artery of [place] heart without angina pectoris Depression, major, severe [...] at the [facility] because of chest pain. Workup was negative. [...] sounds: Normal heart so (more content not included)...[facility]03-19-2025 NoteIR VENOGRAPHY VENOUS SAMPLE Procedure: Bilateral adrenal [...] was achieved using a micropuncture set. A Eventst[employer].am wire was advanced into the IVC and a 5 [place] Citizen vascular sheathwas placed. Selective catheterization of the [...] by Gage Núñez MD on 02/07/2025 10:05 [facility] 01-18-2025 NotePatient contacted office, states she called [facility] to schedule the referral Dr. Christie had sent over, however no referral was received. Machine Applicator Cementer faxed referral and recent visit note to [phone].[facility]02-18-2025 NoteREASON FOR VISIT + HPI: Aby Madrigal [...] metoprolol - Jun 2019 CT A/P in [place], [place] performed for abd pain, incidentally detected [...] ER (Imdur) 60 mg (more content not included)...[facility]02-03-2025 NoteWriter spoke with Tram at [facility] regarding this patient. Tram said the way the order was placed through the system they just didn't see it, Tram assured law writer that patient was being scheduled at the secondary infusion location. Any questions or concerns call Tram at [phone]. [facility] Note Attestation signed by Richa Viramontes MD at 10/27/2024 12:07 PM I have seen and examined the patient. I reviewed the resident/fellow note and I agree with the findings and plan. Richa Viramontes MD Interventional Pulmonary Medicine Pulmonary and Critical Care Medicine [facility] Visit Note Patient: Aby Madrigal Age: 59 y.o. : 1965 Account No.: [id number] Chief complaint: RML nodule HPI Aby Madrigal is a 59 y.o. female with hypertension, CAD status post PCI recently in June 2024, cigarette smoking who is presenting to IP clinic via telemedicine as a new patient after being referred by Dr. Jarocho Saldaña. Patient reports recent admission to [facility] for hypertensive emergency. This prompted a CT [...] file. CTA chest 04/21/2024 at [facility]: Right middle lobe approximately 1.2 cm solid nodule appreciated Subsequent PET CT 2024 at [facility]: Right middle lobe nodule is faintly [...] pretest probability of (more content not included)... [facility]11-12-2024 NoteREASON FOR VISIT + HPI: Aby Madrigal [...] metoprolol - CT A/P Jun 2019 in [place], [place] performed for abd pain, incidentally detected [...] Hypertension Obstructive sleep apnea Panic attacks Stroke ([facility]) Past Surgical History: Procedure Laterality Date [...] Take 25 mg by (more content not included)...[facility]10-14-2024 NoteUT Cardiology - [facility] Subjective Aby Madrigal is a 59 [...] infarction) (CMS/HCC) Hypokalemia Coronary artery disease involving [place] coronary artery of [place] heart without angina pectoris Depression, major, severe [...] Mood and Affect: M (more content not included)...[facility]08-29-2024 Note Attestation signed by Richa Viramontes MD [...] Age: 59 y.o. : 1965 Account No.: [id number] Referring physician: Dr. Jarocho Saldaña Chief complaint: RML nodule HPI Aby Madrigal is a 59 y.o. female with hypertension, CAD status post PCI recently in June 2024,, cigarette smoking who is presenting to IP clinic via telemedicine as a new patient after being referred by Dr. Jarocho Saldaañ. Patient reports recent admission to [facility] for hypertensive emergency. This prompted a CT [...] file. CTA chest 04/21/2024 at [facility]: Right middle lobe approximately 1 cm spiculated nodule appreciated Subsequent PET CT 2024 at [facility]: Right middle lobe nodule is faintly PET avid Past Medical History: Diagnosis Date Abnormal ECG Diabetes mellitus ([facility]) Hyperlipidemia Hypertension Obstructive sleep apnea Panic attacks Stroke ([facility]) Past Surgical History: Procedure Laterality Date [...] tablet when directed 07/18/24 07/28/24 Yes Feng Chrisite MD isosorbide mononitrate ER (Imdur) 60 mg [...] use alcohol. She reports (more content not included)...[facility] 07-18-2024 NoteREASON FOR VISIT + HPI: Aby [...] metoprolol - CT A/P Jun 2019 in [place], [place] performed for abd pain, incidentally detected [...] Diagnosis Date Abnormal ECG Diabetes mellitus ([facility]) Hyperlipidemia Hypertension Obstructive sleep apnea Panic attacks Stroke ([facility]) Past Surgical History: Procedure Laterality Date [...] Rfl: carvedilol (C (more content not included)...[facility] 07-18-2024 Note07/18/24 1001 Referral Data Referral Source structural ironworker Referral Reason Information Patient Information Primary Caregiver Self Activities of Daily Living Assistive Device Not applicable Living Arrangement (Current/Prior to Hospitalization) Private residence Behavior Oriented Discharge Planning Support Systems Children;Family members Type of Residence Private residence Patient's goal for discharge home Patient recently discharged from [facility] to home. Resides at home alone. Discharge plan is home.[facility]08-27-2024 NotePatient sent to ED for hypotension and dizziness/lightheadednessUnW[facility] NoteHospital Medicine Discharge Summary Final Discharge Diagnosis: NSTEMI Admission Diagnosis: Hypokalemia [E87.6] NSTEMI (non-ST elevated myocardial infarction) (CMS/HCC) [I21.4] Hypertensive urgency [I16.0] Adenoma of left adrenal gland [D35.02] Resistant hypertension [I1A.0] Atherosclerosis of [place] coronary artery [place] heart without angina pectoris [I25.10] Coronary artery disease involving [place] coronary artery of [place] heart with unstable angina pectoris ([facility]/HCC) [I25.110] Type 2 diabetes mellitus without complication, without long-term current use of insulin ([facility]) [E11.9] Hospital course: 59yoF with CAD s/p LAD SARKIS 11 days ago who was admitted to [facility] on 07/11 for chest pain. patient initially presented to [facility] for uncomfortable feeling in her chest and was found to have elevated troponins and new ischemic changes on EKG. Infusion and cardiology was consulted transferred to [facility] for further evaluation. Initially the patient had blood pressures up to 192/65 for which home medications were restarted. Troponins at [facility] were negative and there were no [...] HOSPITAL 07/20/2024 1:00 PM Richa Viramontes MD [facility] ONC [facility] 09/05/2024 1:00 PM Bijan Mitchell MD [facility] Your medication list START taking [...] Medications These medications were sent to [facility]/pharmacy #[id number] - [place], [place] - [address] [address] isosorbide mononitrate ER 60 mg 24 hr [...] Renin activity In process (more content not included)...[facility]08-20-2024 Note 07/11/24 1817 Financial Resource Strain How [...] than 3 How often do you attend shinto or temple services? Never Do you belong to any clubs or organizations such as shinto groups, unions, fraternal or athletic groups, or [...] 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 Source structural ironworker Referral Reason Psychosocial assessment Patient Information Primary Caregiver Self Accompanied by/Relationship Daughter (Rosita); Nozwuher-vk-wjq (Yesy) Activities of Daily Living Assistive Device Not applicable Living Arrangement (Current/Prior to Hospitalization) Private residence (Lives at home by herself) Ambulation Independent Dressing Independent Feeding Independent Behavior Oriented (A&Ox4) Communication Can write;Talks;Understands speaking;Understands [place] Citizen;Reads Income Information Income Source Unemployed (receives survivor benefits) Discharge Planning Support Systems Children;Family members (daughter, sjeoahod-pd-hdy, son) Type of Residence Private residence Will patient need Precert for Post Acute needs? No Patient's goal for discharge Home Does the patient need discharge transport arranged? No Completed social work assessment and SDoH screening. Patient was A&Ox4 at this time. Patient's daughter, Rosita, and patient's wknjdeiw-zn-vbc, Yesy, were currently present at bedside. Patient reported that she lives at home by herself and she identified her support system as her daughter, Rosita, her xqgvvmuj-ku-wpm, Yesy, and her son, Elie. Patient endorsed [...] denied any alcohol consumption or recreational drug use.[facility] 07-11-2024 NoteHospital Medicine History and Physical 07/11/2024 12:19 PM THE HOSPITALIST TEAM PREFERS TO USE Epoxy CHAT FOR COMMUNICATION 7AM-7PM. IF I DO NOT RESPOND WITHIN 15 MINUTES, PLEASE PAGE ME/CALL THROUGH THE CUSTODY OFFICER. FROM 7PM-7AM, PLEASE PAGE [phone](COVR) Chief Complaint Chief Complaint Patient presents with [...] transfer from [facility] for NSTEMI. Patient states that last night [...] Noted Hypokalemia 07/11/2024 Coronary artery disease involving [place] coronary artery of [place] heart with unstable angina pectoris ([facility]) 07/11/2024 Anxiety 06/30/2024 Type 2 diabetes mellitus without complication, without long-term current use of insulin ([facility]) 06/30/2024 Chest pain 06/30/2024 Elevated troponin 06/30/2024 Hypertensive urgency 06/30/2024 Hypomagnesemia 06/30/2024 QURESHI (dyspnea on exertion) 05/26/2024 Atherosclerosis of [place] coronary artery of [place] heart without angina pectoris 05/26/2024 Hyperlipidemia 05/26/2024 Murmur, heart 05/26/2024 Sepsis ([facility]) 07/14/2019 BV (bacterial vaginosis) 10/18/2017 GERD (gastroesophageal reflux disease) 10/18/2017 Essential hypertension 10/18/2017 TIA (transient ischemic attack) 10/18/2017 NSTEMI (non-ST elevated myocardial infarction) ([facility]) 06/29/2024 Assessment and Plan NSTEMI CAD, [...] daily for GI prophylaxis (more content not included)...[facility]08-19-2024 Note [facility] Note Reason for cardiology [...] Take 1 tablet (more content not included)... [facility]08-10-2024 NoteHospital Medicine Discharge Summary Final Discharge Diagnosis: [...] mission from [facility] with a chief complaint of chest pain. [...] went to [facility] for the symptoms. Labs were completed showing [...] - Continue metformin. Dear Dr. Lidia MD, [facility] is advised to follow up with you within 1-2 weeks. Items to follow up in ambulatory setting: None Follow-up with: Cardiology and Nephrology Scheduled appointments: Future Appointments Date Time Provider Department Center 07/10/2024 2:20 PM Bijan Mitchell MD [facility] [...] Medications These medications were sent to [facility]/pharmacy #[id number] [place], [place] [id number] carvedilol 25 mg tablet cloNIDine 0.1 mg [...] Results from last 7 days Lab Units more content not included)...[facility]08-10-2024 NoteUTP CARDIOLOGY INPATIENT PROGRESS NOTE Reason for follow up: NSTEMI Subjective Aby Madrigal, a 59 y.o. female patient, is transferred from [facility] for continuity of care. Patient reports that 3 days ago, she woke up in the mid of the night with indigestion, and a feeling fullness, but no pressure like chest pain. She presented to [facility], where she was found to [...] MONOSABS 0.56 06/29/2024 E (more content not included)...[facility]08-09-2024 NotePatient: Aby Madrigal Procedure Information Date/Time: 06/30/24 1600 Procedure: Coronary angiography (Bilateral) Location: [facility] ORDERLY 3 / [facility] - [...] products. Plan discussed with attending. 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 [facility]08-09-2024 NoteCase was discussed with the SALVADOR on 06/29/2024. I agree with the history, physical, assessment, and plan of care. I discussed the findings and therapeutic plan. I agree with the documentation, except for any updates below. Maurice Nogueira MDW[facility]08-09-2024 NoteHospital Medicine History and Physical 06/30/2024 1:15 AM THE HOSPITALIST TEAM PREFERS TO USE Epoxy CHAT FOR COMMUNICATION 7AM-7PM. IF I DO NOT RESPOND WITHIN 15 MINUTES, PLEASE PAGE ME/CALL THROUGH THE CUSTODY OFFICER. FROM 7PM-7AM, PLEASE PAGE [phone](COVR) [facility] History of Present Illness Aby Madrigal is an 59 y.o. female who came from home with past medical history of anxiety, DM2, hypertension, IBS presents a direct mission from [facility] with a chief complaint of chest pain. [...] went to [facility] for the symptoms. Labs were completed showing [...] without long-term current use of insulin ([facility]) 06/30/2024 Chest pain 06/30/2024 Elevated troponin 06/30/2024 Hypertensive urgency 06/30/2024 QURESHI (dyspnea on exertion) 05/26/2024 Atherosclerosis of [place] coronary artery of [place] heart without angina pectoris 05/26/2024 Hyperlipidemia 05/26/2024 Murmur, heart 05/26/2024 Sepsis ([facility]) 07/14/2019 BV (bacterial vaginosis) 10/18/2017 GERD (gastroesophageal reflux disease) 10/18/2017 Essential hypertension 10/18/2017 TIA (transient ischemic attack) 10/18/2017 Assessment and Plan Aby Madrigal is an 59 y.o. female who came from home with past medical history of anxiety, DM2, hypertension, IBS presents a direct mission from [facility] with a chief complaint of chest pain. #Chest pain #Elevated troponin Troponin 0.1, will continue to trend -Patient continues to have mild chest discomfort upon arrival -Continue heparin drip -CXR negative for acute process at OSH -EKG showing normal sinus rhythm -N.p.o. for possible right and left cardiac cath in a.m. -Patient with new diastolic dysfunction on echoc (more content not included)... [facility]07-31-2024 NoteUT Cardiology - [facility] Clinic Subjective Aby Madrigal is a 59 [...] attack) QURESHI (dyspnea on exertion) Atherosclerosis of [place] coronary artery of [place] heart without angina pectoris Hyperlipidemia Murmur, heart [...] cooperative. Judgment: Judgment no (more content not included)...[facility]07-05-2024 [facility] Reason for cardiology consult: New patient here to establish care. Ref from Dr. Moran for abnormal stress test. Chief Complaint: Dyspnea on exertion HPI: bAy Madrigal is a 58 y.o. female without [...] extremities. PSYCH: appropriate mood, (more content not included)...[facility]01-04-2023 NoteOPERATIVE NOTE OPERATION DATE: 11/25/2022 PREOPERATIVE DIAGNOSIS: [...] in 10 years. CC: Kendra Moran M.D.[id number] NoteChief Complaint consultation for colonoscopy and skin [...] mg= 1 tab(s), Oral, (more content not included)...[facility] DaytonComment on above:Result Comment: Electronically Signed By: DIPESH BUCKNER, Umm Hogan\Date and Time Signed: 10/11/22 11:01 ESTEvaluation + Plan note No data available for this section General Surgery [facility] Evaluation note* Diagnosis Genitourinary syndrome of menopause- Primary PCB (post coital bleeding) Postcoital bleeding documented in [facility] SystemEvaluation noteNo assessment information available [facility] Work Phone: Evaluation note* Diagnosis Well woman exam with routine gynecological exam- Primary Routine gynecological examination [facility] No data available for this section General Surgery [facility] Instructions* Attachments The following attachments cannot be sent through Care Everywhere. * Calcium and vitamin D for bone health ([place] Citizen) * Vaginal dryness ([place] Citizen) [facility] SystemProgress note No data available for this section General Surgery [facility] Reason for referral (narrative)No reason for referral information availableMccullough-[facility] Hospital Work Phone: Summary Purpose Family History No [...] team informatio n (unrecognized section and content) Crm Dynamics Developer Relationship Specialty Start Date End Date Kendra Moran MD PCP - General Family Medicine 06/06/19 Team Status: Active Member Role Status Eros Moran MD Primary Care Provider Active Team [...] May 21, 2025 End: May 21, 2025 Crm Dynamics Developer Relationship Specialty Start Date End Date Kendra Moran MD PCP - General Family Medicine 06/06/19 INFORMATION SOURCE (unrecogn ized section and content) DATE CREATED AUTHOR 12/16/[address] [facility] DATE CREATED AUTHOR AUTHOR'S ORGANIZ ATION 03/26/2023 [facility] DATE CREATED AUTHOR AUTHOR'S ORGANIZ ATION 02/11/2025 [facility] DATE CREATED AUTHOR AUTHOR'S ORGANIZ ATION 05/15/2025 [facility] DATE CREATED AUTHOR AUTHOR'S ORGANIZ ATION 06/05/2025 [facility] DATE CREATED AUTHOR AUTHOR'S ORGANIZ ATION 06/06/2025 [facility] Reason for Visit (unrecogniz ed section and [...] BE BASED ON THE PRIMARY CLINICAL RECORDS. [facility]. provides no warranty or guarantee of the accuracy or completeness of information in this document.
--- NOTE | 2025-06-06 20:14 | XR_ITS ---
[id number] Patient Name: MILAN RASMUSSEN MRN: [id number] date: 1965 Sex: F Assigned Patient Location: ED.MAIN Current Patient Location: ED.MAIN Accession/Order Number: [id number] Exam Date: 06/06/2025 20:39 Report Date: 06/06/2025 20:40 At the request of: LORENZO BARR MD Procedure: XR chest 1V XR chest 1V 06/06/2025 8:27 PM SIGNS AND SYMPTOMS: Chest pain PROTOCOL: Frontal radiograph COMPARISON: 05/09/2025 FINDINGS: The trachea is midline. Atherosclerotic changes are present in the aortic arch. The heart and mediastinal structures are within normal limits. The lung parenchyma is clear. The bony thorax is intact. XR/XR chest 1V IMPRESSION: No acute cardiopulmonary pathology. Impression dictated by: Jarocho Parada M.D. 06/06/2025 8:40 PM Dictation Location: [address] [address] Electronically authenticated by: [id number] Y Date: 06/06/2025 20:40
--- NOTE | 2025-06-06 20:23 | ED_ITS ---
HPI - Chest Pain General Chief Complaint: Chest Pain Stated Complaint: CHEST PAIN Time Seen by Provider: 06/06/25 20:03 Source: patient Mode of arrival: walk-in History of Present Illness HPI narrative: past history of CAD s/p stent placement last year. Had stress test yesterday. Tonight on the phone and developed substernal chest pain that started about 45 min ago. Pain continues. No associated dyspnea, nausea or diaphoresis Related Data Home Medications ?Medication ?Instructions ?Recorded ?Confirmed aspirin 81 mg capsule 81 mg PO DAILY 04/22/2405/22 clopidogrel 75 mg tablet 75 mg PO DAILY 07/01/2405/22 quetiapine 100 mg tablet (Seroquel) 100 mg PO .QHS 01/1506/06/25 rosuvastatin 40 mg tablet 40 mg PO DAILY 07/24/2405/22 isosorbide mononitrate 60 mg 60 mg PO BID 07/31/24 tablet,extended release 24 hr lorazepam 1 mg tablet (Ativan) 1 mg PO Q8H anxiety 08/1506/06/25 hydralazine 50 mg tablet 50 mg PO TID PRN hypertensio n 09/15/24 06/06/25 carvedilol 25 mg tablet 12.5 mg PO Q8H 05/09/2504/22 magnesium oxide 400 mg (241.3 mg 400 mg PO .QD 5 06/06/25 magnesium) tablet Previous Rx's ?Medication ?Instructions ?Recorded canagliflozin 300 mg tablet 300 mg PO DAILY #30 tabs 1 01/14/24 (Invokana) pantoprazole 40 mg tablet,delayed 40 mg PO BID #60 tab s 11/13/24 release (Protonix) carvedilol 25 mg tablet 37.5 mg (1.5 x 25 mg) PO BID #90 05/10/25 tabs spironolactone 25 mg tablet 12.5 mg (1/2 x 25 mg) PO Q D #30 05/10/25 tabs Allergies Allergy/AdvReac Type Severity Reaction Status Date / Time lisinopril Allergy Severe Cough Verified 06/06/25 20:05 amlodipine Allergy Mild Headache Verified 06/06/25 20:05 alprazolam (From Xanax) AdvReac Severe Watery Eye Verified 06/06/25 20:05 Review of Systems ROS Status of ROS 10 or more systems reviewed and unremark able except as noted in history and below [facility] Medical History Elevated troponin ?R79.89 - Other specified abnormal findings of blood chemistry (ICD-10) Hypertensive emergency ?I16.1 - Hypertensive emergency (ICD-10) Acute non-ST elevation myocardial infarction (NSTEMI) ?I21.4 - Non-ST elevation (NSTEMI) myocardial infarction (ICD-10) Chest pain ?R07.9 - Chest pain, unspecified (ICD-10) CAD (coronary artery disease) ?I25.10 - Atherosclerotic heart disease of [place] coronary artery without angina pectoris (ICD-10) Hypertensive urgency ?I16.0 - Hypertensive urgency (ICD-10) HTN (hypertension) ?I10 - Essential (primary) hypertension (ICD-10) Hypertensive urgency ?I16.0 - Hypertensive urgency (ICD-10) Chest pain ?R07.9 - Chest pain, unspecified (ICD-10) Anxiety ?F41.9 - Anxiety disorder, unspecified (ICD-10) HTN (hypertension) ?I10 - Essential (primary) hypertension (ICD-10) Hypokalemia ?E87.6 - Hypokalemia (ICD-10) Hypertension, uncontrolled ?I10 - Essential (primary) hypertension (ICD-10) Chest pain ?R07.9 - Chest pain, unspecified (ICD-10) NSTEMI (non-ST elevated myocardial infarction) ?I21.4 - Non-ST elevation (NSTEMI) myocardial infarction (ICD-10) Shortness of breath ?R06.02 - Shortness of breath (ICD-10) Headache ?R51.9 - Headache, unspecified (ICD-10) Elevated d-dimer ?R79.89 - Other specified abnormal findings of blood chemistry (ICD-10) Hypertensive emergency ?I16.1 - Hypertensive emergency (ICD-10) Uncontrolled hypertension ?I10 - Essential (primary) hypertension (ICD-10) Irritable bowel syndrome ?K58.9 - Irritable bowel syndrome without diarrhea (ICD-10) H/O nephrolithotomy with removal of calculi ?Z98.890 - Other specified postprocedural states (ICD-10) ?Z87.442 - Personal history of urinary calculi (ICD-10) Kidney stone ?N20.0 - Calculus of kidney (ICD-10) Sepsis ?A41.9 - Sepsis, unspecified organism (ICD-10) H/O angiography ?Z92.89 - Personal history of other medical treatment (ICD-10) Lung nodule ?R91.1 - Solitary pulmonary nodule (ICD-10) Anxiety ?F41.9 - Anxiety disorder, unspecified (ICD-10) HTN (hypertension) ?I10 - Essential (primary) hypertension (ICD-10) Diabetes ?E11.9 - Type 2 diabetes mellitus without complications (ICD-10) TIA (transient ischemic attack) ?G45.9 - Transient cerebral ischemic attack, unspecified (ICD-10) Surgical History H/O heart artery stent ?Z95.5 - Presence of coronary angioplasty implant and graft (ICD-10) History of appendectomy ?Z90.49 - Acquired absence of other specified parts of digestive tract (ICD- 10) H/O tubal ligation ?Z98.51 - Tubal ligation status (ICD-10) History of cholecystectomy ?Z90.49 - Acquired absence of other specified parts of digestive tract (ICD- 10) Family History Mother Family history of cancer Father MVA (motor vehicle accident) Brother Family history of stroke Social History Within the past year, how often did you have a drink containing alcohol: never Within the past year, how often did you have six or more drinks on one occasion: never Score interpretation: A score less than 3 is consistent with normal alcohol consumption. Smoking status: Former smoker Second hand tobacco smoke exposure: No Non-prescribed substance use: denies use Previous occupational history: no Known occupational exposures/hazards: No Highest level of school completed/degree received: high school graduate Do you want help with school or training: No Are you now , , , , never or living with a partner: In a typical week, how many times do you talk on the telephone with family, friends, or neighbors: 3 or more times per week How often do you get together with friends or relatives: 3 or more times per week How often do you attend restorationist or druze services: never Do you belong to any clubs or organizations such as restorationist groups unions, fraternal or athletic groups, or school groups: no Total score: 1 Score interpretation: A score of less than or equal to 1 indicates the most socially isolated. Little interest or pleasure in doing things: not at all Feeling down, depressed, or hopeless: not at all Feel stressed/tense/nervous/anxious/difficulty sleeping: not at all Do you think of yourself as: straight/heterosexual Gender Identity: female Exam Constitutional Vital Signs, click to edit/add: Last Vital Signs Temp 98.5 F 06/06/25 19:57 Pulse 74 06/06/25 19:57 Resp 06/06/25 19:57 BP 183/78 H 06/06/25 19:57 Pulse Ox 98 06/06/25 20:36 O2 Del Method Room Air 06/06/25 20:36 Common normals: no apparent distress, average body habitus, oriented x3, no limitations, healthy appearing, alert and well nourished [facility] Common normals: normocephalic and head/scalp atraumatic Eye Common normals: EOMs intact bilaterally and conjunctivae normal Respiratory Common normals: normal respiratory effort, no retractions, no use of accessory muscles and clear to auscultation bilaterally Cardio Common normals: regular rate, regular rhythm, S1 normal heart sound and S2 normal heart sound Extremity Common normals: normal to inspection and full ROM Neuro Common normals: oriented x3, CN's II-XII intact bilaterally, moves all extremities and no focal motor deficits Course Vital Signs Vital signs: Vital Signs Temperature 98.5 F 06/06/25 19:57 Pulse Rate 74 06/06/25 19:57 Respiratory Rate 06/06/25 19:57 Blood Pressure 183/78 H 06/06/25 19:57 Pulse Oximetry 98 06/06/25 19:57 Oxygen Delivery Method Room Air 06/06/25 19:57 Temperature 98.5 F 06/06/25 19:57 Pulse Rate 74 06/06/25 19:57 Respiratory Rate 06/06/25 19:57 Blood Pressure 183/78 H 06/06/25 19:57 Pulse Oximetry 98 06/06/25 20:36 Oxygen Delivery Method Room Air 06/06/25 20:36 MDM - Chest Pain MDM Narrative Medical decision making narrative: past history of CAD and stent placement about a year ago. Had stress test yesterday that was positive with significant ST depression in the inferior leads. Now presents with chest pain. EKG now sinus aimee with nonspecific T wave changes I, V5,V6. Patient in no distress. BP elevated at 183/78. ASA and nitro ordered along with cxray and labs troponin returns as normal. BP improved at 148/77. 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 Discussed with hospitalist at [facility] and patient accepted in transfer to step down unit Lab Data Labs: Lab Results 06/06/25 Range/Units 20:23 WBC 6.8 (4.0-11.0) 10^3/uL RBC 4.26 (4.20-5.40) 10^6/uL Hgb 11.5 L (12.0-16.0) g/dL Hct 35.7 L (36.0-48.0) % MCV 83.8 (81.0-99.0) fL MCH 27.0 (26.7-34.0) pg MCHC 32.2 (29.9-35.2) g/dL RDW 16.4 H (11.0-15.0) % Plt Count 196 (150-450) 10^3/uL MPV 9.7 (9.5-13.5) fL Neut % (Auto) 54.0 (43.0-75.0) % Lymph % (Auto) 35.8 (20.5-60.0) % Pepin % (Auto) 7.9 (1.7-12.0) % Eos % (Auto) 1.6 (0.9-7.0) % Baso % (Auto) 0.6 (0.2-2.0) % Neut # (Auto) 3.7 (1.4-6.5) 10^3/uL Lymph # (Auto) 2.4 (1.2-3.8) 10^3/uL Pepin # (Auto) 0.5 (0.3-0.8) 10^3/uL Eos # (Auto) 0.1 (0.0-0.7) 10^3/uL Baso # (Auto) 0.0 (0.0-0.1) 10^3/uL Abs Immat Gran (auto) 0.01 (0.00-0.03) 10^3/uL Imm/Tot Granulo (auto) 0.1 (0.0-0.5) % Sodium 144 (136-145) mmol/L Potassium 4.4 (3.5-5.1) mmol/L Chloride 108 H (98-107) mmol/L Carbon Dioxide 26.7 (21.0-32.0) mmol/L Anion Gap 13.7 BUN 20.0 H (7.0-18.0) mg/dL Creatinine 0.99 (0.55-1.02) mg/dL Est GFR ( Amer) >60 (>=60 mL/min/1.73m^2) Est GFR (Non-Af Amer) 57 L (>=60 mL/min/1.73m^2) BUN/Creatinine Ratio 20.2 Glucose 104 (74-106) mg/dL Calcium 9.2 (8.5-10.1) mg/dL Troponin I High Sens 6.7 (4.0-51.3) pg/mL NT-Pro-B Natriuret Pep 153.0 (<=900.0) pg/mL Discharge Plan Discharge Chief Complaint: Chest Pain Clinical Impression: Angina pectoris, unstable Patient Disposition: [facility]
[2025-06-06 20:30] LABS: Hematocrit 35.7 % (36.0-48.0); Hemoglobin 11.5 g/dL (12.0-16.0); Immature Granulocytes Abs Auto 0.01 10^3/uL (0.00-0.03); Immature Granulocytes Pct Auto 0.1 % (0.0-0.5); Lymphocytes Absolute Auto 2.4 10^3/uL (1.2-3.8); Mean Corpuscular HGB Conc 32.2 g/dL (29.9-35.2); Mean Corpuscular Hemoglobin 27.0 pg (26.7-34.0); Mean Corpuscular Volume 83.8 fL (81.0-99.0); Platelet Count 196 10^3/uL (150-450); Red Blood Count 4.26 10^6/uL (4.20-5.40); White Blood Count 6.8 10^3/uL (4.0-11.0)
[2025-06-06] MEDS: ASPIRIN 81 MG TAB.CHEW 324 MG PO (20:30)
[2025-06-06] MEDS: NITROGLYCERIN 0.4 MG BOTTLE PO (20:31)
[2025-06-06 20:35] VITALS: PULSE 69
[2025-06-06 20:36] VITALS: O2SAT 98
--- NOTE | 2025-06-06 20:42 | PC.NURSE ---
at 2041, another 0.4 mg NTG sL administered. CP at a 5 BP at 132/72
--- NOTE | 2025-06-06 20:51 | PC.NURSE ---
CP at a 3. 131/70. Third 0.4 mg SL NTG administered.
[2025-06-06 20:58] LABS: Anion Gap 13.7; Blood Urea Nitrogen 20.0 mg/dL (7.0-18.0); Calcium 9.2 mg/dL (8.5-10.1); Carbon Dioxide 26.7 mmol/L (21.0-32.0); Chloride 108 mmol/L (98-107); Estimated GFR (African America >60 (>=60 mL/min/1.73m^2); Estimated GFR (Non-African Ame 57 (>=60 mL/min/1.73m^2); Glucose 104 mg/dL (74-106); NT Pro B Type Natriuretic Pept 153.0 pg/mL (<=900.0); Potassium 4.4 mmol/L (3.5-5.1); Sodium 144 mmol/L (136-145)
--- NOTE | 2025-06-06 21:01 | PC.NURSE ---
Bp is 134/65. Chest pressure is 0.
--- NOTE | 2025-06-06 21:03 | PC.NURSE ---
Chest pressure has mostly resolved -it is 0-2 intermittently at this time.
--- NOTE | 2025-06-06 21:51 | PC.NURSE ---
Unable to download VS into chart.. Printed out the pages individually.
[2025-06-06] MEDS: LORAZEPAM 1 MG TABLET PO (22:50)
[2025-06-06] MEDS: HEPARIN SODIUM (PORCINE) 5,000 UNIT/ML VIAL 4000 UNIT IV (23:13)
[2025-06-06 23:48] LABS: INR 0.94; Prothrombin Time 10.0 sec (9.0-11.6)
[2025-06-06 23:52] LABS: Partial Thromboplastin Time 28.1 sec (22.3-36.2)
[2025-06-07] MEDS: HEPARIN SODIUM,PORCINE/D5W 25,000 UNIT/500 ML IV.SOLN 17.947 UNIT IV (00:23)
[2025-06-07] MEDS: QUETIAPINE FUMARATE 25 MG TABLET 50 MG PO (00:42)
--- NOTE | 2025-06-07 00:45 | PC.NURSE ---
Pt intermittently resting. SB in the 50's without ectopy. Denies CP at this time. Awaiting PU.
== END 2025-06-07 01:30 | disposition short-term general hospital (02) ==
PROVIDERS: Emergency Provider Internal Medicine; PCP Family Medicine
DX: I25.110 Atherosclerotic heart disease of native coronary artery with unstable angina pectoris (principal); Z95.5 Presence of coronary angioplasty implant and graft; Z98.51 Tubal ligation status; Z90.49 Acquired absence of other specified parts of digestive tract; Z87.891 Personal history of nicotine dependence
CPT/HCPCS: 36415; 71045; 80048; 83880; 84484; 85025; 85610; 85730; 93005; 96365; 96376; 99285; J1644

== ENCOUNTER 2025-07-08 09:54 | Emergency (ER) | payer MEDICAID, SELFPAY ==
--- OUTSIDE RECORDS SUMMARY | 2025-06-05 17:04 | XMS_ITS ---
Author Organization [facility] [place] Address [address] [place] [address] Care Team Providers Care Front Line Leader Name Role Phone Amadou Murillo Primary Care Provider [phone] REASON FOR VISIT labs Encounters Encounter Location Date Provider Diagnosis [facility] [address] [place] [address] 06/05/2025 Amadou Murillo Abnormal thyroid blo od [...] * Aby RASMUSSEN SDOB:[birth year] (59 yo F)Acc No.[id number]:06/05/2025 Patient: Aby WILDER :1965 A ge:59 Y S ex:Female Address:[address] [place] [address], [address], [place] [address] * Refills Stop Meloxicam Tablet, 15 MG, [...] Date: Generated for Maryjo stevens/Live/Eliezer on: 0 07/08/2025 10:00 AM EDT
--- OUTSIDE RECORDS SUMMARY | 2025-06-06 17:00 | XMS_ITS ---
Author Organization [facility] [place] Address [address] [place] [address] Care Team Providers Care Swimming Pool Maintenance Name Role Phone Amadou Murillo Primary Care Provider REASON FOR VISIT ER check on Encounters Encounter Location Date Provider Diagnosis [facility] [address] [place] [address] 06/06/2025 Amadou Murillo Plan Of Treatment No Information Progress Notes * Aby RASMUSSEN SDOB:[birth year] (59 yo F)Acc No.[id number]:06/06/2025 Patient: Aby WILDER :1965 A ge:59 Y S ex:Female Address:[address] [place] [address], [address], [place] [address] * true * Date: Generated for Maryjo stevens/Live/eTransmitting on: 0 07/08/2025 10:01 AM EDT
--- OUTSIDE RECORDS SUMMARY | 2025-06-25 15:30 | XMS_ITS | Encounter Summary ---
Author Organization [facility] Address [address] [place] [address] Care Team Providers Care Respiratory Care Specialist Name Role Phone Carlito Murillo MD Primary Care Provider [phone] Encounter Details Date Type Department Care Team (Late st Contact Info) Description 06/25/2025 3:30 PM EDT Office Visit [facility] Heart at [facility] [address] [place] [address] Rafa Spence MD [address] [facility] [address] [facility] [place] [address] Coronary artery disease involving [place] coronary artery of [place] heart without angina pectoris (Primary Dx); Primary hypertension; Status post insertion of drug eluting coronary artery stent; Renal artery stenosis; Musculoskeletal chest pain Social History Tobacco Use Types Packs/Day Years Used Date Smoking Tobacco: Former Cigarettes 1 45 1 977 - 2021 Smokeless Tobacco: Never Alcohol Use Standard Drinks/Week Comments Not Currently 0 (1 standard drink = 0.6 oz pure alcohol) Used to drink a lot on the weekend [facility] Utilities Answer Date Recorded In the past 12 months has [facility] electric, gas, oil, or water company threatened to shut off services in your home? No 06/07/2025 Humiliation, Afraid, Rape, and Kick questionnair e Answer Date Recorded Within the last year, have y ou been afraid of your partner or ex-partner? No 06/07/2025 Within the last year, have y ou been humiliated or emotionally abused in other ways by your partner or ex-partner? No Within the last year, have y ou been kicked, hit, slapped, or otherwise physically hurt by your partner or ex-partner? No 06/07/2025 Within the last year, have y ou been raped or forced to have any kind of sexual activity by your partner or ex-partner? No 06/07/2025 Social Connection and Isolat ion Panel [NHANES] Answer Date Recorded In a typical week, how many times do you talk on the phone with family, friends, or neighbors? More than three times a week 07/11/2024 How often do you get togethe r with friends or relatives? More than three times a week 07/11/2024 How often do you attend chur ch or jain services? Never 07/11/2024 Do you belong to any clubs o r organizations such as buddhism groups, unions, fraternal [...] care, and heating? Not hard at all 06/07/2025 PHQ-2 Answer Date Recorded Patient Health Questionnaire-2 Score 0 10/26/2024 [facility] - Occupational Stress [...] medical appointments or from getting medications? No 05/22 In the past 12 months, has l ack of transportation kept you from meetings, work, or from getting things needed for daily living? No 06/07/2025 Housing Stability Vital Sign Answer Logan e Recorded In the last 12 months, was t here a time when you were not able to pay the mortgage or rent on time? No 06/07/2025 In the past 12 months, how m any times have you moved where you were living? 0 06/07/2025 At any time in the past 12 m [facility], were you homeless or living in a senior living (including now)? Yes 06/07/2025 Hunger Vital Sign Answer Date Recorded Within the past 12 months, y ou worried that your food would run out before you got the money to buy more. Never true 06/07/20 25 Within the past 12 months, t he food you bought just didn't last and you didn't have money to get more. Never true 06/07/2025 Comments No Sex and Gender Information Value Date Recorded Sex Assigned at Female 06/22/2025 1:49 PM EDT Legal Sex Female 10:42 PM EDT Gender Identity Female 06/22/2025 1:49 PM EDT Sexual Orientation Heterosexual or Straight 11/2024 1:49 PM EDT documented as of this encounter Last Filed Vital Signs Vital Sign Reading Time Taken Comments Blood Pressure 111/62 06/25/2025 3:58 PM EDT Pulse 67 06/25/2025 3:58 PM EDT Temperature - - Respiratory Rate - - Oxygen Saturation 98% 06/25/2025 3:49 PM EDT Inhaled Oxygen Concentration - - Weight 89.8 kg (198 lb) 06/25/2025 3:49 PM EDT Height 162.6 cm (5' 4 ) 06/25/2025 3:49 PM EDT Body Mass Index 33.99 06/25/2025 3:49 PM EDT documented in this encounter Progress Notes * Rafa Spence MD - 06/25/2025 3:30 PM EDT Images from the original note were not included. OR Cardiology [facility] Subjective Aby Madrigal is a 60 y.o. year old female patient being seen for follow up PCI. Still havinga little chest pain, but denies SOB. Says sometimes she gets dizzy upon standing. Patient Active Problem List Diagnosis BV (bacterial vaginosis) Gastroesophageal reflux disease without esophagitis Essential hypertension Sepsis (CMS/HCC) TIA (transient ischemic attack) QURESHI (dyspnea on exertion) Hyperlipidemia Murmur, heart Anxiety Type 2 diabetes mellitus without complication, without long-term current use of insulin (CMS/HCC) Chest pain Elevated troponin Hypomagnesemia NSTEMI (non-ST elevated myocardial infarction) (CMS/HCC) Hypokalemia Coronary artery disease involving [place] coronary artery of [place] heart without angina pectoris Depression, major, severe recurrence (CMS/HCC) Panic disorder Primary aldosteronism Resistant hypertension Secondary hypertension Adenoma of left adrenal gland Abnormal stress ECG Abnormal magnetic resonance imaging study Acquired hypothyroidism Acute non-ST segment elevation myocardial infarction (CMS/HCC) Allergic conjunctivitis Carotid artery stenosis Cellulitis and abscess of face COVID-19 Derangement of knee Diarrhea Edema Former tobacco use Hemorrhoids Inflamed seborrheic keratosis Insomnia Kidney stone Left ventricular hypertrophy Mass of left adrenal gland Migraine Obstructive sleep apnea Paresthesia of upper limb Pulmonary nodule Skin sensation disturbance Thrush Family History Problem Relation Name Age of Onset Lung cancer Mother Accidental Father Lung cancer Sister Social History Tobacco Use Smoking status: Former Current packs/day: 0.00 Average packs/day: 1 pack/day for 45.0 years (45.0 ttl pk-yrs) Types: Cigarettes Start date: 1976 Quit date: 2021 Years since quittin.5 Smokeless tobacco: Never Vaping Use Vaping status: Never Used Substance Use Topics Alcohol use: Not Currently Comment: Used to drink a lot on the weekend Drug use: Never HPI Aby is seen in follow up. She is a 60-year-old woman who was previously evaluated in our [...] nuclear perfusion was normal with an LV ejectionfraction of 72%. She then presented to the emergency room twice on 06/13 and on 06/17/2024] because of nausea and vomiting and was found to have elevated blood pressure and an EKG was performed and there was new T waveinversions in 1, aVL, V5 and V6. She was then admitted to [facility] on 07/11/2024 with NSTEMI. She underwent cardiac catheterization and PCI. She recently started cardiac rehab but then had to stop because of pneumonia and she is currently recovering and has just resumed it. Recently her blood pressure medications have been adjusted and her blood pressure has been much better controlled. She is taking hydralazine on an as- needed basis. Her main antihypertensive therapy consists of carvedilol 25 mg 3 times daily and isosorbide mononitrate 60 mg daily. on 01/31/2025 she was evaluated at the [facility] because of chest pain. Workup was negative.She was discharged home. She is also following with endocrinology regarding adrenal adenoma. She underwent bilateral adrenalvein sampling and was seen in follow-up with endocrinology who did not favor adrenalectomy and favored medical therapy. She was given spironolactone. At visit of 04/23/2025 I asked her to take it 25 mgonce daily. I saw her on 05/14/2025 after presenting to the emergency room on 05/09/2025 with chest pain. I checked a stress test and this was abnormal. I scheduled a cardiac catheterization however she ended up being admitted to the hospital with chest pain and underwent cardiac catheterization and stenting of the RCA. Today she reports that she has been doing much better after the hospitalization. However she does complain of localized chest pain in the lower left side of the chest at the bottom of the rib cage. It is localized. Does not radiate. Happening today most of the time. It happens on and off. Otherwiseno other type of chest pain. No shortness of breath. She has been dizzy and lightheaded when she stands up. Her blood pressure is borderline on standing. Review of Systems Cardiovascular: Positive for chest pain. Neurological: Positive for dizziness (upon standing), headaches and light-headedness. All other systems reviewed and are negative. Objective Visit Vitals BP 111/62 (BP Location: Left arm, Patient Position: Standing) Pulse 67 Ht 1.626 m (5' 4 ) Wt 89.8 kg (198 lb) SpO2 98% BMI 33.99 kg/m?? OB Status Postmenopausal Smoking Status Former BSA 2.01 m?? Physical Exam Constitutional: Appearance: She is well-developed. [...] General: No swelling. Cervical back: Neck supple. Right lower leg: No edema. Left lower leg: No edema. Skin: General: Skin is warm and dry. Neurological: General: No focal deficit present. Mental Status: She is alert and oriented to person, place, and time. Psychiatric: Mood and Affect: Mood normal. Behavior: Behavior is cooperative. Judgment: Judgment normal. Allergies Allergies Allergen Reactions Lisinopril Cough Norvasc [Amlodipine] Other Twitchy eye Xanax [Alprazolam] Other Medications Current Outpatient Medications: aspirin 81 mg EC tablet, Take 1 tablet (81 mg) by mouth in the morning., Disp: 30 tablet, Rfl: 11 carvedilol (Coreg) 12.5 mg tablet, Take 2 tablets (25 mg) by mouth two times daily for 197 doses., Disp: 120 tablet, Rfl: 3 clopidogrel (Plavix) 75 mg tablet, Take 1 tablet (75 mg) by mouth in the morning., Disp: 30 tablet,Rfl: 11 hydrALAZINE (Apresoline) 50 mg tablet, Take 50 mg by mouth if needed in the morning, at noon, and at bedtime. (Patient taking differently: Take 50 mg by mouth if needed.), Disp: , Rfl: Invokana 100 mg, Take 300 mg by mouth in the morning., Disp: , Rfl: LORazepam (Ativan) 1 mg tablet, TAKE 1 TABLET BY MOUTH THREE TIMES A DAY FOR 30 DAYS (Patient taking differently: Take 0.5 mg by mouth every 6 (six) hours if needed for sleep.), Disp: , Rfl: magnesium oxide (Mag-Ox) 400 mg (241.3 mg magnesium) tablet, Take 400 mg by mouth in the morning., Disp: , Rfl: Protonix 40 mg EC tablet, Take 40 mg by mouth if needed each day. (Patient taking differently: Take40 mg by mouth two times daily.), Disp: , Rfl: QUEtiapine (SEROquel) 100 mg tablet, Take 100 mg by mouth in the morning. (Patient taking differently: Take 50 mg by mouth in the morning.), Disp: , Rfl: rosuvastatin (Crestor) 40 mg tablet, Take 1 tablet (40 mg) by mouth in the morning., Disp: 30 tablet, Rfl: 0 spironolactone (Aldactone) 50 mg tablet, Take 0.5 tablets (25 mg) by mouth in the morning. (Patienttaking differently: Take 12.5 mg by mouth in the morning.), Disp: , Rfl: isosorbide mononitrate ER (Imdur) 30 mg 24 hr tablet, Take 1 tablet (30 mg) by mouth in the morning. Do not crush or chew., Disp: 90 tablet, Rfl: 3 Recent Labs Admission on 06/07/2025, Discharged on 06/08/2025 Component Date Value Anti-Xa (Heparin) 06/07/2025 0.53 aPTT 06/07/2025 37.6 (H) Platelets 06/07/2025 181 High Sensitivity Troponi* 06/07/2025 5 Glucose POC 06/07/2025 97 Sodium 06/07/2025 142 Potassium 06/07/2025 3.8 Chloride 06/07/2025 110 (H) CO2 06/07/2025 26 BUN 06/07/2025 16 Creatinine 06/07/2025 1.07 Glucose 06/07/2025 95 Calcium 06/07/2025 8.6 Anion Gap 06/07/2025 10 eGFR 06/07/2025 59.5 (L) BUN/Creatinine Ratio 06/07/2025 15.0 Auto WBC 06/07/2025 4.78 RBC 06/07/2025 4.33 Hemoglobin 06/07/2025 11.5 (L) Hematocrit 06/07/2025 36.6 MCV 06/07/2025 84.5 MCH 06/07/2025 26.6 (L) MCHC 06/07/2025 31.4 (L) RDW 06/07/2025 16.6 (H) Platelets 06/07/2025 186 Glucose POC 06/07/2025 97 Glucose POC 06/07/2025 129 (H) Sodium 06/08/2025 140 Potassium 06/08/2025 3.7 Chloride 06/08/2025 111 (H) CO2 06/08/2025 24 BUN 06/08/2025 13 Creatinine 06/08/2025 0.90 Glucose 06/08/2025 87 Calcium 06/08/2025 8.1 (L) Anion Gap 06/08/2025 9 eGFR 06/08/2025 73.2 BUN/Creatinine Ratio 06/08/2025 14.4 Auto WBC 06/08/2025 5.53 RBC 06/08/2025 4.16 Hemoglobin 06/08/2025 11.2 (L) Hematocrit 06/08/2025 35.2 (L) MCV 06/08/2025 84.6 MCH 06/08/2025 26.9 (L) MCHC 06/08/2025 31.8 (L) RDW 06/08/2025 16.5 (H) Platelets 06/08/2025 172 Activated Clotting Time 06/08/2025 352 (H) Activated Clotting Time 06/08/2025 249 (H) Glucose POC 06/08/2025 89 Triglycerides 06/08/2025 61 Cholesterol 06/08/2025 95 (L) LDL Calculated 06/08/2025 42 HDL 06/08/2025 41 Non HDL Cholesterol 06/08/2025 54 Total VLDL-C 06/08/2025 12 Cholesterol/HDL Ratio 06/08/2025 2.3 Ventricular Rate 06/08/2025 53 Atrial Rate 06/08/2025 53 MS Interval 06/08/2025 164 QRS DURATION 06/08/2025 90 QT Interval 06/08/2025 432 QTC CALCULATION(BAZETT) 06/08/2025 405 P [place] 06/08/2025 41 R-[place] 06/08/2025 -5 T Wave [place] 06/08/2025 97 Glucose POC 06/08/2025 135 (H) Hospital Outpatient Visit on 01/02/2025 Component Date Value Cortisol 01/02/2025 9.0 Aldosterone 01/02/2025 14.2 Renin Activity 01/02/2025 <0.1 Potassium 01/02/2025 4.0 Cortisol 01/02/2025 3.6 Aldosterone 01/02/2025 7.3 Renin Activity 01/02/2025 <0.1 Potassium 01/02/2025 3.9 Blood testing 06/06/2025: Hemoglobin 11.5, platelets 196, potassium 4.4, BUN 20, creatinine 0.99, hemoglobin A1c 5.9. Blood testing 06/05/2025: Triglycerides 44, cholesterol 115, LDL 46, HDL 61. Blood testing 05/10/2025: Hemoglobin 11.2, platelets 191, potassium 3.7, BUN 19, creatinine 0.89, EGFR more than 60, high-sensitivity troponin 10.2, NT proBNP 196. Blood testing 04/09/2025: Potassium 3.5, BUN 17, creatinine 1.11, EGFR 50. Blood testing 04/01/2025: Hemoglobin 11.8, platelets 186, potassium 2.9, BUN 23, creatinine 1.17, EGFR 47. LFTs normal. Blood testing 01/31/2025: Hemoglobin 11.9, platelets 211, potassium 3.5, BUN 29, creatinine 1.52, EGFR 35, LFTs normal, high-sensitivity troponin 8.9, NT proBNP 196. Chest x-ray 01/31/2025: No acute process seen in the chest. No lobar consolidation or edema. No bronchial inflammation. Blood testing 06/17/2024: Hemoglobin 13.7, platelets 236, potassium 3.0, BUN 19, creatinine 1.19, EGFR 46, high-sensitivity troponin 10.7. Lipids 09/30/2023: Triglycerides 49, cholesterol 177, LDL 124, HDL 43. Imaging and other tests Echocardiogram 06/08/2025: Left Ventricle: Increased LVOT velocity in the mid ventricle at rest 2.39m/s with a gradient of 23mmHg increasing to 2.64m/s and 28mmHg with valsalva. May be due to hyperdynamic state or chordal apparataus. The left ventricle is normal size. Global left ventricular systolic function is hyperdynamic. The calculated Biplane EF is 77 %. Left ventricular wall thickness is increased. Right Ventricle: The right ventricle is normal in size. Normal right ventricular systolic function. Doppler studies suggest normal right sided pressures. Left Atrium: The left atrium is normal in size. Mitral Valve: Mild mitral regurgitation. Overall Conclusions: Due to suboptimal imaging Lumason contrast was administered for opacification and better delineation of endocardial borders. ECG 06/08/2025: Sinus bradycardia Left ventricular hypertrophy (R in aVL, [place] product) with Repolarization Abnormality Inferior infarct (cited on or before 18-JUL-2024) T wave abnormality, consider lateral ischemia Abnormal ECG Cardiac catheterization 06/07/2025: Final Impression: 1) Successful stenting of the proximal RCA from 70%, with an iFR of 0.87, to 10% with a 4x12 Megatron drug-eluting stent 2) The previously placed stent in the mid-LAD is widely patent and the distal stenosis remains mildat 30% 3) Mild atherosclerotic plaquing in the circumflex coronary artery Stress test 06/05/2025: Myocardial perfusion is normal with soft tissue attenuation. Global left ventricular systolic function is normal. No evidence of significant transient ischemic dilatation. Abnormal Lexiscan stress test with significant ischemic EKG changes seen in the inferolateral leads. Infrequent ventricular and supraventricular ectopy. Echocardiogram 05/09/2025: CONCLUSION: 1. Left ventricular hypertrophy with significant hypertrophy of the basal septum up to 1.6 cm. Hyperdynamic left ventricular systolic function with increased intracavitary gradients up to34 mmHg with Valsalva maneuver. No evidence of systolic anterior motion of the anterior mitral valve leaflet. 2. Normal right ventricular size and systolic function. 3. No significant valvular dysfunction. 4. Normal right-sided pressures. Lower extremity venous Doppler 05/09/2025: Negative for left lower extremity DVT. ECG 05/09/2025: Sinus rhythm, T wave abnormality, possible lateral ischemia. Minimal voltage criteria for LVH, may be normal variant. ECG 03/25/2025: Sinus rhythm, moderate ST depression, T wave abnormality, possible lateral ischemia. ECG 01/31/2025: Sinus rhythm, moderate ST depression, T wave abnormality possible lateral ischemia. Compared to the ECG of 11/25/2024, no significant changes. ECG 07/18/2024: Normal sinus rhythm Left ventricular hypertrophy with repolarization abnormality (R in aVL, [place] product) Cannot rule out Inferior infarct, age undetermined Abnormal ECG Echocardiogram 07/11/2024: Left Ventricle: The left ventricle is small in size. Global left ventricular systolic function is hyperdynamic. EF range is estimated at 70 % -75 %. Left ventricular wall thickness is moderately increased. No regional wall motion abnormality. Mid- cavity gradient noted with Valsalva, measuring 35 mmHg likely related to hyperdynamic left ventricular systolic function Right Ventricle: The right ventricle appears enlarged. The right ventricle is poorly seen. Left Atrium: The left atrium appears normal in size. Mitral Valve: There is nonspecific thickening of the mitral valve leaflet. Mild mitral regurgitation. Tricuspid Valve: Mild tricuspid regurgitation. Pericardium: Anterior free space is seen; effusion versus fat pad. Overall Conclusions: Due to suboptimal imaging Lumason contrast was administered for opacification and better delineation of endocardial borders. Cardiac catheterization 06/30/2024: FINAL IMPRESSIONS: Severe stenosis of the left anterior descending coronary artery successfully treated by balloon angioplasty and Synergy drug-eluting stent placement Moderate distal disease of the left anterior descending coronary artery Mild to moderate proximal, calcific disease of the right coronary artery Normal global left ventricular systolic function by noninvasive imaging Severe, systemic hypertension Renal ultrasound 06/29/2024: IMPRESSION: 1. Elevated velocities of both renal arteries reflecting hemodynamically significant renal artery stenosis bilaterally. Suspected < 60% diameter reduction of right renal artery and > 60% diameter reduction of left renal artery. 2. Lobulated cortical scarring of left kidney. No hydronephrosis on either side. 3. Fatty infiltration of the liver ECG 06/17/2023: Sinus rhythm, lateral T wave inversions. Treadmill nuclear stress test 05/19/2024: Sinus bradycardia with ST and T wave abnormality with downsloping ST depressions at peak exercise. Nuclear perfusion was normal with normal ventricular systolic function EF 72%. Patient exercised for about 5 minutes on the treadmill. Resting blood pressure was elevated. CTA chest 04/21/2024: Moderate to severe calcific atherosclerosis of the coronary arteries. Assessment/Plan Diagnoses and all orders for this visit: Coronary artery disease involving [place] coronary artery of [place] heart without angina pectoris - isosorbide mononitrate ER (Imdur) 30 mg 24 hr tablet; Take 1 tablet (30 mg) by mouth in the morning. Do not crush or chew. Primary hypertension Status post insertion of drug eluting coronary artery stent Renal artery stenosis Musculoskeletal chest pain 1. CAD SP stenting of the LAD in June 2024, Most recently stenting of the RCA in May 2025: Currently no angina. Her chest pain that she is describing is very atypical and I think is musculoskeletal in nature. I reassured her. I am going to reduce isosorbide mononitrate to 30 mg daily due to dizziness on standing and borderline blood pressure. Continue dual antiplatelet therapy for 1 year after the most recent presentation and stenting. Continue statin therapy. Her recent LDL is at target in May 2025. 2. Hypertension: better controlled on the current regimen, I am reducing isosorbide mononitrate because of borderline blood pressure on standing. Continue the rest of the medications. 3. Renal artery stenosis: I had reviewed the results of the renal artery ultrasound that was done in June 2024. At this time given acceptable control of blood pressure and normal renal function there is no indication for renal artery stenting. I will refer her to cardiac rehab after the recent stenting. I will see her in follow-up in 6 months, Unless needed before. Follow up in about 6 months (around 12/26/2025). Rafa Spence MD documented in this encounter Plan of Treatment Upcoming Encounters Date Type Department Care Team (Late st Contact Info) Description 07/24/2025 1:00 PM EDT Follow-Up [facility] at [facility] Endocrinology [address] [place] [phone] Feng Cloud MD [address] [facility] [address] [place] [phone] documented as of this encounter Visit Diagnoses Diagnosis Coronary artery disease involving [place] coronary artery of [place] heart without angina pectoris- Primary Primary hypertension Unspecified essential hypertension Status post insertion of drug eluting coronary artery stent Renal artery stenosis Atherosclerosis of renal artery Musculoskeletal chest pain Other chest pain documented in this encounter Care Teams Respiratory Care Specialist Relationship Specialty Start Date End Date Carlito Murillo MD [address] [facility] [place] [address] PCP - General 05/24/24 documented as of this encounter
--- OUTSIDE RECORDS SUMMARY | 2025-06-26 12:21 | XMS_ITS ---
Author Organization [facility] [place] [facility] Address [address] [place] [address] Care Team Providers Care Chair Upholsterer Name Role Phone Amadou Murillo Primary Care Provider REASON FOR VISIT update meds Medications Medication SIG (Take, Route, Frequency, Duration) Notes Start Date End Date Status Isosorbide Mononitrate ER 30 MG 1 tablet Orally Once a day for 90 days Active Encounters Encounter Location Date Provider Diagnosis [id number] [place] [address] 06/26/2025 Amadou Murillo Hypertension I10 Assessments Encounter Date Diagnosis (ICD Code) Assessment Notes Treatment Notes Treatment Clinical Notes Section Notes 06/26/2025 Hypertension (ICD-10 - I10) Plan Of Treatment Medication Medication Name Sig Start Date Stop Date Notes Isosorbide Mononitrate ER 30 MG 1 tablet Orally Once a day for 90 days Progress Notes * Aby MADRIGAL SDOB:[birth year] (60 yo F)Acc No.[id number]:06/26/2025 Patient: Aby WILDER :1965 A ge:60 Y S ex:Female Address:[address] [place] [address], [address], [place] [address] * Refills Refill Isosorbide Mononitrate ER Tablet Extended Release 24 Hour, 30 MG, Orally, 90 Tablet, 1 tablet, Once a day, 90 days, Refills=3 * true * Date: Generated for Printi ng/Faxing/eTransmitting on: 0 07/08/2025 10:00 AM EDT
[2025-07-08] VITALS (14 sets, daily range): BP systolic 121–183; BP diastolic 54–70; PULSE 62–79; TEMP 36.7; O2SAT 93–98; BMI 34.5
--- OUTSIDE RECORDS SUMMARY | 2025-07-08 10:00 | XMS_ITS | Encounter Summary ---
Author Organization [employer] Sys tem Address [id number] [address] [place] [address] Care Team Providers Care Operations Supervisor Chemical Cleaning Name Role Phone Carlito Murillo MD Primary Care Provider [phone] Reason for Referral * Diagnostic Imaging (Routine) - Closed Specialty Diagnoses / Procedures Referred By Contac t Referred To Contact Radiology Diagnoses Pain Procedures MRA head with and without contrast External, Scanning Provider Referral ID Status Reason Start Date Expiration Date Visits Re quested Visits Authorized [id number] Closed 11/10/2021 11/10/2022 1 1 * Diagnostic Imaging (Routine) - Closed Specialty Diagnoses / Procedures Referred By Contac t Referred To Contact Radiology Diagnoses Pain Procedures MR brain without contrast External, Scanning Provider Referral ID Status Reason Start Date Expiration Date Visits Re quested Visits Authorized [id number] Closed 11/10/2021 11/10/2022 1 1 Encounter Details Date Type Department Care Team ([facility] Contact Info) Description 11/10/2021 Orders Only [facility] [employer] [address] [place] [phone] Transcribe, Orders Support User Pain (Primary [...] pain documented in this encounter Care Teams Operations Supervisor Chemical Cleaning Relationship Specialty Start Date End Date Carlito Murillo MD PCP - General Family Medicine 06/06/19 documented as of this encounter
--- OUTSIDE RECORDS SUMMARY | 2025-07-08 10:01 | XMS_ITS | Encounter Summary ---
Author Organization [email or web address] Sys tem Address [facility] [id number] [address] [place] [address] Care Team Providers Care Collar Cutter Name Role Phone Carlito Murillo MD Primary Care Provider [phone] Reason for Referral * Diagnostic Imaging (Routine) - Closed Specialty Diagnoses / Procedures Referred By Contac t Referred To Contact Radiology Diagnoses Pain Procedures CT angiogram chest [facility] [employer] [address] [place] [phone] Phone: tel: fax: Referral ID Status Reason Start Date Expiration Date Visits Re quested Visits Authorized [id number] Closed 07/20/2024 07/20/2025 1 1 * Diagnostic Imaging (Routine) - Pending Review Specialty Diagnoses / Procedures Referred By Contac t Referred To Contact Radiology Diagnoses Pain Procedures NON [facility] PET CT WHOLE BODY [facility] [employer] [facility] [place] [address] Phone: tel: fax: Referral ID Status Reason Start Date Expiration Date V isits Requested Visits Authorized [id number] Pending Review 07/20/2024 07/20/2025 1 1 Encounter Details Date Type Department Care Team (Late st Contact Info) Description 07/20/2024 Orders Only [facility] [employer] [address] [place] [phone] Transcribe, Orders Support User Pain (Primary [...] pain documented in this encounter Care Teams Collar Cutter Relationship Specialty Start Date End Date Carlito Murillo MD PCP - General Family Medicine 06/06/19 documented as of this encounter
--- OUTSIDE RECORDS SUMMARY | 2025-07-08 10:01 | XMS_ITS | CCD ---
Author Organization [facility] CliniSymd Care Team Providers Care Oncology Nurse Name Role Phone Kendra Moran Primary Care Physician [phone] Umm LANDON Attending Unavailable NILL, Umm Michael [...] HOY ., DR GARDNER Primary Care Unavailable LOMITA, DR ADELIA Medrano Consulting Unavailable FENG CHRISTIE Attending Unavailable FENG CHRISTIE Referring Unavailable KENDRA MORAN Primary Care Unavailable GAGE NÚÑEZ Admitting Unavailable Kendra Moran MD Primary Care Provider [phone] Kendra Moran MD Primary Care Provider [phone] Roxanne Jackson APRN Attending Provider Elie Jackson DO Attending Provider [phone] Hoy, Kendra M Primary Care Unavailable Elie Jackson Attending Unavailable Elie Jackson Admitting Unavailable HOY, KENDRA M Referring Unavailable HOY, KENDRA M Primary Care Unavailable HOY, KENDRA M Referring Unavailable HOY, KENDRA M Primary Care Unavailable FARZANA ELY Attending Unavailable HOY, KENDRA M Referring Unavailable HOY, KENDRA M Primary Care Unavailable AFSANEH JACOME Attending Unavailable HOY, KENDRA M Referring Unavailable HOY, KENDRA M Primary Care Unavailable FENG CHRISTIE Attending Unavailable FEDERICA JACOBSON Referring Unavailable HORANI, NONA Referring Unavailable WELCHJESUS Referring Unavailable MOUKARBGOMEZ DUNN Attending Unavailable HOY, KENDRA Referring Unavailable HORANI, NONA Admitting Unavailable HORANI, NONA Attending Unavailable FENG CHRISTIE Attending Unavailable FEDERICA JACOBSON Referring Unavailable LORENZO BARR Referring Unavailable HORANI, NONA Admitting Unavailable WELCH, JESUS ASH Attending Unavailable GOMEZ SPENCE Attending Unavailable FENG CHRISTIE Referring Unavailable OMBALLI, RICHA Referring Unavailable OMBALLI, RICHA Referring Unavailable STEPHENBIJAN BORRERO Attending Unavailable JAMEYUKAGOMEZ RODRIGUEZ Attending Unavailable FENG CHRISTIE Attending Unavailable MACMESERET SNELL Referring Unavailable OMBALLI, RICHA Attending Unavailable JAMEYUKAGOMEZ RODRIGUEZ Attending Unavailable MOUKAGOMEZ RODRIGUEZ Attending Unavailable JOSE BETANCUR Referring Unavailable HORANI, NONA Admitting Unavailable TAO NASSAR Attending Unavailable HERMINIA JULIAN Attending Unavailable STEPHEN, SAMAR Referring Unavailable HORANI, NONA Referring Unavailable HORANI, NONA Referring Unavailable PIRKL, FELECIA Referring Unavailable HORANI, NONA Referring Unavailable HERMINIA JULIAN Referring Unavailable FENG CHRISTIE Attending Unavailable LARRYBALLIRICHA Attending Unavailable FENG CHRISTIE Attending Unavailable Allergies Allergy Classification Reported Allergen(s) Allergy Type Date of Onset Reaction(s) Facility (1 source) No Known Medication Allergies; Translations: [No Known Medication Allergies] Propensity to adverse reactions (disorder) [facility] Repository (5 sources) ALPRAZolam; Translations: [ALPRAZOLAM] Drug Allergy 4 Abnormal Behavior [facility] Repository (9 sources) amLODIPine; Translations: [AMLODIPINE] Drug Allergy 4 Other (See Comments) [facility] Repository (9 sources) Lisinopril; Translations: [LISINOPRIL] Drug Allergy 4 Cough [facility] Repository (4 sources) LORazepam; Translations: [lorazepam] Drug Allergy 5 Unknown Reaction [facility] Medications Current Medications Medication Drug Class(es) [...] Translations: [Non-ST elevation (NSTEMI) myocardial infarction] Onset: 5 Chronic Anxiety disorders (10 sources) Anxiety; Translations: [Panic disorder] Onset: 2 08-02-2019 Chronic Comment on above: Problem List clean-u p per request of Phys. EHR Cmte Complication of device; implant or graft (2 sources) Retained ureteric stent 08-29-2019 Episodic Coronary atherosclerosis and other heart disease (9 sources) Coronary arteriosclerosis; Translations: [Atherosclerotic heart disease of [place] coronary artery without angina pectoris] Onset: 3 [...] for malignant neoplasm of colon; Translations: [Abnormal result of other cardiovascular function study] Onset: 3 Episodic Other skin disorders (2 [...] sources) Bacterial vaginosis; Translations: [Acute vaginitis] Onset: 10-18-2017 10-18-2017 Episodic Nonspecific chest pain (2 sources) Chest pain, unspecified; Translations: [Chest pain, unspecified] Onset: 06-29-2024 Episodic Other aftercare (1 source) 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; Translations: [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] Onset: 11-26-2022 Episodic Other aftercare (1 source) Other intermediate designer (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 therapy; Translations: [OTH ALF CURRENT [...] [Solitary pulmonary nodule] Onset: 10-26-2024 Episodic Other skin disorders (1 source) Other [...] Drug therapy finding 09-30-2022 Unclassified (1 source) Onset: 06-01-2025 06-01-2025 Unclassified (1 source) Resistant hypertension; Translations: [Resistant hypertension] Onset: 01-02-2025 Unclassified (1 source) Obesity, class 2; Translations: [Obesity, class 2] Onset: 08-29-2024 Results Test Name Value Interpretation Reference Range Facility Office Visiton 06-25-2025 Follow-up visit [id number] Aby Madrigal 1965 F Date Provider Department Center 06/25/2025 GOMEZ KENDALL RIAZ [place] Family History Problem Relation Age of Onset Lung cancer Mother Accidental Father Lung cancer Sister Family Status - Relation Status Age at Mother Father Sister Brother Alive Level of Service:12078 [place] OFFICE/OUTPATIENT ESTABLISHED MOD MDM 30 MIN Normal [facility] 36on 06-08-2025 36 Spoke to daughter shae mata stated she has everthing taken care of she didn't need to talk to us. Daughter states Badillo had a cath with a stent placement. Nothing needed at this time Normal [facility] 36 Please call pt regarding stress test. Daughter Rosita [phone]. Normal [facility] BASIC METABOLIC PANELon 07- Anion gap [Moles/Vol] 9 mmol/L Normal 7-[address] [facility] Comment on above: Performed By: #### L [id number] #### [facility] ([facility]) [address] [place] [address] Calcium [Mass/Vol] 8.1 mg/dL Low 8.6-10.3 [facility] Comment on above: Performed By: #### L [id number] #### [facility] ([facility]) [address] [place] [address] Chloride [Moles/Vol] 111 mmol/L High 98-[address] [facility] Comment on above: Performed By: #### L [id number] #### [facility] ([facility]) [address] [place] [address] CO2 [Moles/Vol] 24 mmol/L Normal 21-31 [facility] Comment on above: Performed By: #### L [id number] #### [facility] ([facility]) [address] [place] [address] Creatinine [Mass/Vol] 0.90 mg/dL Normal 0.60-1.[address] [facility] Comment on above: Performed By: #### L [id number] #### [facility] ([facility]) [address] [place] [address] GLOMERULAR FILTRATION RATE ML/MIN/1.73 SQ M.PREDICTED 73.2 mL/min/1.73m*2 Normal >60.[address] [facility] Comment on above: Result Comment: The [facility]???s estimated glomerular filtration rate (eGFR) will [...] individuals. Performed By: #### L [id number] #### [facility] ([facility]) [address] [place] [address] Glucose [Mass/Vol] 87 mg/dL Normal 70-100 [facility] Comment on above: Performed By: #### L [id number] #### [facility] ([facility]) [address] [place] [address] Potassium [Moles/Vol] 3.7 mmol/L Normal 3.5-5.[address] [facility] Comment on above: Performed By: #### L [id number] #### [facility] ([facility]) [address] [place] [address] Sodium [Moles/Vol] 140 mmol/L Normal 136-145 [facility] Comment on above: Performed By: #### L [id number] #### [facility] ([facility]) [address] [place] [address] Urea nitrogen [Mass/Vol] 13 mg/dL Normal 7-[address] [facility] Comment on above: Performed By: #### L [id number] #### [facility] ([facility]) [address] [place] [address] UREA NITROGEN/CREATININE (MASS RATIO) IN SER/PLAS 14.[address] [facility] Comment on above: Performed By: #### L [id number] #### [facility] ([facility]) [address] [place] [address] CBCon 06-08-2025 Erythrocyte distribution width (RBC) [Ratio] 16.5 % High 11.5-15.[address] [facility] Comment on above: Performed By: #### L [id number] ####[facility] ([facility])[address] [place] [address] ERYTHROCYTE MEAN CORPUSCULAR HEMOGLOBIN CONCENTRATION (G/DL) BY AUTOMATED 31.8 g/dL Low 32.0-35.[address] [facility] Comment on above: Performed By: #### L [id number] ####[facility] ([facility])[address] [place] [address] Hematocrit (Bld) [Volume fraction] 35.2 % Low 36.0-45.[address] [facility] Comment on above: Performed By: #### L [id number] ####[facility] ([facility])[address] [place] [address] Hemoglobin (Bld) [Mass/Vol] 11.2 g/dL Low 12.0-15.[address] [facility] Comment on above: Performed By: #### L [id number] ####[facility] ([facility])[address] [place] [address] MCH (RBC) [Entitic mass] 26.9 pg Low 27.0-33.[address] [facility] Comment on above: Performed By: #### L [id number] ####[facility] ([facility])[address] [place] [address] MCV (RBC) [Entitic vol] 84.6 fL Normal 82.0-98.[address] [facility] Comment on above: Performed By: #### L [id number] ####[facility] ([facility])[address] [place] [address] PLATELETS (10*3/UL) IN BLOOD AUTOMATED COUNT 172 10*3/uL Normal 150-[address] [facility] Comment on above: Performed By: #### L [id number] ####[facility] ([facility])[address] [place] [address] RBC (Bld) [#/Vol] 4.16 10*6/uL Normal 3.80-5.00 [facility] Comment on above: Performed By: #### L [id number] ####[facility] ([facility])[address] [place] [address] WBC (Bld) [#/Vol] 5.53 10*3/uL Normal 4.00-10.60 [facility] Comment on above: Performed By: #### L [id number] ####[facility] ([facility])[address] [place] [address] LIPID PANELon 06-08-2025 CHOL/HDL 2.3 mg/dL Normal [facility] Comment on above: Performed By: #### L [id number] ####[facility] ([facility])[address] [place] [address] Cholesterol [Mass/Vol] 95 mg/dL Low 120-[address] [facility] Comment on above: Performed By: #### L [id number] ####[facility] ([facility])[address] [place] [address] Magnesium [Mass/Vol] 61 mg/dL Normal <[address] [facility] Comment on above: Result Comment: TRIG LYCERIDE REFERENCE RANGE: 20 YEARS AND OLDER CARDIOVASCULAR RISK LESS THAN 150 mg/dL LOW RISK 150 TO 199 mg/dL BORDERLINE RISK 200 mg/dL AND GREATER HIGH RISK Performed By: #### L [id number] ####[facility] ([facility])[address] [place] [address] Magnesium [Mass/Vol] 42 mg/dL Normal 0-[address] [facility] Comment on above: Performed By: #### L [id number] ####[facility] (BEAK[facility])[address] , [place] [address] Magnesium [Mass/Vol] 41 mg/dL Normal 23-[address] [facility] Comment on above: Performed By: #### L [id number] ####[facility] (BEAKER)[address] , [place] [address] NON HDL CHOL. (LDL+VLDL) [address] [facility] Comment on above: Performed By: #### L [id number] ####[facility] (BEAKER)[address] , [place] [address] TOTAL VLDL-C 12 mg/dL Normal 0-[address] [facility] Comment on above: Performed By: #### L [id number] ####[facility] ([facility])[address] [place] [facility] [place] [address] NURSNOTEon 06-08-2025 NURSNOTE Discharge instructio ns given to patient and family. Patient left via wheelchair, private vehicle. Normal [facility] POCT GLUCOSE METER UNSOLICIT ED RESULTSon 06-08-2025 Glucose [Mass/Vol] 135 mg/dL High 70-105 [facility] Comment on above: Order Comment: Waive d Testing in the ED is performed under the ED CLIA certificate #[id number]. Result Comment: imcf add2 Performed By: #### L [id number] ####[facility] ([facility])[address] , [place] [address] Glucose [Mass/Vol] 89 mg/dL Normal 70-105 [facility] Comment on above: Order Comment: Waive d Testing in the ED is performed under the ED CLIA certificate #[id number]. Result Comment: ndub ois3 Performed By: #### L [id number] ####[facility] ([facility])[address] [place] [address] ANTI-XA (HEPARIN LEVEL)on HEPARIN UNFRACTIONATED (U/ML) IN PPP BY CHROMOGENIC METHOD 0.53 IU/mL Normal 0.3-0.[address] [facility] Comment on above: Order Comment: Check anti-Xa level every 6 hours while on heparin infusion, or per protocol. Result Comment: Radha roxaban and Apixaban will interfere with the anti Xa assay used to monitor UFH and LMWH. Performed By: #### L [id number] #### [facility] ([facility]) [address] [place] [address] APTTon 06-07-2025 ACTIVATED PARTIAL THROMBOPLASTIN TIME IN PPP BY COAGULATION ASSAY 37.6 Seconds High 25.0-35.[address] [facility] Comment on above: Order Comment: Basel ine aPTT before initiating heparin infusion. Result Comment: Clin ical significance of the APTT is questionable in the presence of heparin. Performed By: #### L [id number] ####[facility] ([facility])[address] [place] [address] BASIC METABOLIC PANELon 05-22 Anion gap [Moles/Vol] 10 mmol/L Normal 7-[address] [facility] Comment on above: Performed By: #### L [id number] ####[facility] ([facility])[address] [place] [address] Calcium [Mass/Vol] 8.6 mg/dL Normal 8.6-10.3 [facility] Comment on above: Performed By: #### L [id number] ####[facility] ([facility])[address] [place] [address] Chloride [Moles/Vol] 110 mmol/L High 98-[address] [facility] Comment on above: Performed By: #### L [id number] ####[facility] ([facility])[address] [place] [address] CO2 [Moles/Vol] 26 mmol/L Normal 21-31 [facility] Comment on above: Performed By: #### L [id number] ####[facility] ([facility])[address] [place] [address] Creatinine [Mass/Vol] 1.07 mg/dL Normal 0.60-1.[address] [facility] Comment on above: Performed By: #### L [id number] ####[facility] ([facility])[address] [place] [address] GLOMERULAR FILTRATION RATE ML/MIN/1.73 SQ M.PREDICTED 59.5 mL/min/1.73m*2 Low >60.[address] [facility] Comment on above: Result Comment: The [facility]???s estimated glomerular filtration rate (eGFR) will [...] of individuals. Performed By: #### L [id number] ####[facility] ([facility])[address] [place] [address] Glucose [Mass/Vol] 95 mg/dL Normal 70-100 [facility] Comment on above: Performed By: #### L [id number] ####[facility] ([facility])[address] [place] [address] Potassium [Moles/Vol] 3.8 mmol/L Normal 3.5-5.[address] [facility] Comment on above: Performed By: #### L [id number] ####[facility] ([facility])[address] [place] [address] Sodium [Moles/Vol] 142 mmol/L Normal 136-145 [facility] Comment on above: Performed By: #### L [id number] ####[facility] ([facility])[address] [place] [address] Urea nitrogen [Mass/Vol] 16 mg/dL Normal 7-[address] [facility] Comment on above: Performed By: #### L [id number] ####[facility] ([facility])[address] [place] [address] UREA NITROGEN/CREATININE (MASS RATIO) IN SER/PLAS 15.[address] [facility] Comment on above: Performed By: #### L [id number] ####[facility] ([facility])[address] [place] [address] CBCon 06-07-2025 Erythrocyte distribution width (RBC) [Ratio] 16.6 % High 11.5-15.[address] [facility] Comment on above: Performed By: #### L [id number] #### [facility] ([facility]) [address] [place] [address] ERYTHROCYTE MEAN CORPUSCULAR HEMOGLOBIN CONCENTRATION (G/DL) BY AUTOMATED 31.4 g/dL Low 32.0-35.[address] [facility] Comment on above: Performed By: #### L [id number] #### [facility] ([facility]) [address] [place] [address] Hematocrit (Bld) [Volume fraction] 36.6 % Normal 36.0-45.[address] [facility] Comment on above: Performed By: #### L [id number] #### [facility] ([facility]) [address] [place] [address] Hemoglobin (Bld) [Mass/Vol] 11.5 g/dL Low 12.0-15.[address] [facility] Comment on above: Performed By: #### L [id number] #### [facility] ([facility]) [address] [place] [address] MCH (RBC) [Entitic mass] 26.6 pg Low 27.0-33.[address] [facility] Comment on above: Performed By: #### L [id number] #### [facility] ([facility]) [address] [place] [address] MCV (RBC) [Entitic vol] 84.5 fL Normal 82.0-98.[address] [facility] Comment on above: Performed By: #### L [id number] #### [facility] ([facility]) [address] [place] [address] PLATELETS (10*3/UL) IN BLOOD AUTOMATED COUNT 186 10*3/uL Normal 150-[address] [facility] Comment on above: Performed By: #### L [id number] #### [facility] ([facility]) [address] [place] [address] RBC (Bld) [#/Vol] 4.33 10*6/uL Normal 3.80-5.00 [facility] Comment on above: Performed By: #### L [id number] #### [facility] ([facility]) [address] [place] [address] WBC (Bld) [#/Vol] 4.78 10*3/uL Normal 4.00-10.60 [facility] Comment on above: Performed By: #### L [id number] #### [facility] ([facility]) [address] [place] [address] CONSULTon 06-07-2025 CONSULT -- Attestation with edits by Bijan Licea MD at 06/07/2025 6:21 PM By using the attestations below, the signing clinician agrees that I have read and verify that the documentation has been personally reviewed by me and ensure that the documentation accurately reflects the encounter. GC: I personally saw this patient on the day of the encounter, performed the zuniga portion(s) of the service and participated in the management and confirm the resident's/ fellow's Dr Sullivan documentation. Please note there may be an additional personal documentation from me. Bijan Licea MD, [facility] Cardiology Consult Note Reason for Consult: Positive stress test HPI: Aby Madrigal is a 59 y.o. female with a past medical history of hyperaldosteronism, hypertension, TIA, panic attacks and sleep apnea, prior history of smoking. Patient transferred to [facility] from [facility]. She presented to outside hospital with 1 day history of nonradiating intermittent anterior chest pain. The patient follows with . Patient was evaluated on 05/14/25 in the cardiology clinic because of intermittent chest pain requiring admission to the ED. As the patient has residual moderate disease in the proximal RCA and the distal LAD, the plan was to proceed with stress test, and if it is positive, the patient might need stenting likely to the RCA. Treadmill stress myocardial perfusion imaging was ordered as outpatient but never done. She came to [facility] on 06/04/2025 with chest pain she describes it as ache and pressure behind the sternum which occurred at rest and lasted about 2 and half hour, she was given nitroglycerin x 3 by EMS which reduced the pain . It recurred 1 more time and this time went away with fentanyl. The patient had Lexiscan stress test on 06/05 and she was informed that the stress test is positive and showed ST changes in inferior leads. No recurrence of chest pain since then. Patient has history of GERD but she states that she did not eat anything prior to that event of chest pain. On presentation to [facility], labs revealed troponin of 5. And the patient was started on heparin infusion. Cardiology was consulted for further evaluation and management. Cardiac history: # left heart cath on July 19, 2024 requiring PCI and blood eluding stent to LAD Cardiac workup: # Echocardiogram 07/11/24 showed ejection fraction 70-75% Cardiac medications: Coreg 37.5 twice daily, rosuvastatin 40 mg, 50 mg hydralazine 3 times daily as needed, aspirin, clopidogrel, Aldactone 12.5, Imdur 60 mg daily. Cardiology ROS: Review of Systems Constitutional: Negative for activity change, appetite change, chills, diaphoresis and fever. HENT: Negative for dental problem, ear discharge, ear pain, hearing loss, sneezing, sore throat and trouble swallowing. Eyes: Negative. Respiratory: Negative for choking, chest tightness, shortness of breath and wheezing. Cardiovascular: Positive for chest pain. Negative for palpitations and leg swelling. Gastrointestinal: Negative for abdominal distention, abdominal pain, blood in stool, constipation, diarrhea and vomiting. Endocrine: Negative. Musculoskeletal: Negative. Neurological: Negative. Past Medical History She has a past medical history of Abnormal ECG, Diabetes mellitus ([facility]), Hyperlipidemia, Hypertension, Obstructive sleep apnea, Panic attacks, and Stroke ([facility]). Surgical History She has a past surgical history that includes Cerebral angiogram; Tubal ligation; Hysterectomy; Cholecystectomy; Cardiac catheterization; and Coronary stent placement. Social History She reports that she quit smoking about 3 years ago. Her smoking use included cigarettes. She started smoking about 48 years ago. She has a 45 pack-year smoking history. She has never used smokeless tobacco. She reports that she does not currently use alcohol. She reports that she does not use drugs. Family History Allergies Lisinopril, Norvasc [amlodipine], and Xanax [alprazolam] Medications Current Outpatient Medications Medication Instructions aspirin 81 mg, Daily carvedilol (Coreg) 25 mg tablet Take 1.5 tablets by mouth twice daily. clopidogrel (PLAVIX) 75 mg, oral, Daily hydrALAZINE (APRESOLINE) 50 mg, oral, 3 times daily PRN Invokana 300 mg, oral, Daily isosorbide mononitrate ER (IMDUR) 60 mg, oral, Daily, Do not crush or chew. LORazepam (Ativan) 1 mg tablet TAKE 1 TABLET BY MOUTH THREE TIMES A DAY FOR 30 DAYS magnesium oxide (MAG-OX) 400 mg, Daily Protonix 40 mg, Daily PRN QUEtiapine (SEROQUEL) 100 mg, Nightly QUEtiapine (SEROQUEL) 100 mg, Daily rosuvastatin (CRESTOR) 40 mg, oral, Daily spironolactone (ALDACTONE) 25 mg, oral, Daily Prescriptions Prior to Admission[1] Last Recorded Vit (more content not included)... Normal [facility] HIGH SENSITIVITY TROPONIN Io n 06-07-2025 HS TROPONIN I (NG/L) 5 ng/L Normal <[address] [facility] Comment on above: Performed By: #### L [id number] #### [facility] ([facility]) [address] [place] [address] HPon 06-07-2025 HP H&P reviewed. The patient was examined and there are changes to the H&P. Mrs. Madrigal continues to have chest pain at rest. Plan coronary angiography. Normal [facility] NURSNOTEon 06-07-2025 NURSNOTE [employer] was informed by [facility] that during transport patient reported 7/10 chest pain. [employer] administered Fentanyl 75 mcg at 0221, Nitroglycerin was not given due to bradycardia. Chest pain has resolved since Fentanyl was given per patient. Patient arrived with IV Heparin running at 18/units/kg, IV temporarily discontinued awaiting orders. Normal [facility] PLATELET COUNTon 06-07-2025 PLATELETS (10*3/UL) IN BLOOD AUTOMATED COUNT 181 10*3/uL Normal 150-[address] [facility] Comment on above: Performed By: #### L [id number] ####[facility] ([facility])[address] [place] [address] POCT GLUCOSE METER UNSOLICIT ED RESULTSon 06-07-2025 Glucose [Mass/Vol] 129 mg/dL High 70-105 [facility] Comment on above: Order Comment: Waive d Testing in the ED is performed under the ED CLIA certificate #[id number]. Result Comment: amcn eal2 Performed By: #### L [id number] #### [facility] ([facility]) [address] [place] [address] Glucose [Mass/Vol] 97 mg/dL Normal 70-105 [facility] Comment on above: Order Comment: Waive d Testing in the ED is performed under the ED CLIA certificate #[id number]. Result Comment: ndub ois3 Performed By: #### L [id number] #### [facility] ([facility]) [address] [place] [address] Glucose [Mass/Vol] 97 mg/dL Normal 70-105 [facility] Comment on above: Order Comment: Waive d Testing in the ED is performed under the ED CLIA certificate #[id number]. Result Comment: ndub ois3 Performed By: #### L [id number] #### [facility] ([facility]) [address] [place] [address] Orders Onlyon 06-05-2025 Orders Only [id number] Aby Madrigal 1965 F Date Provider Department Center 06/05/2025 [id number], HISTORICAL CARD [place] Family History Problem Relation Age of Onset Lung cancer Mother Accidental Father Lung cancer Sister Family Status - Relation Status Age at Mother Father Sister Brother Alive Normal [facility] X-ray reportOrdered By: Asad White on 05-21-2025 Study report [facility] [address] [place] [address] XRay Report Signed Patient: Aby Madrigal MR#: [id number] : 1965 Acct:[id number] Age/Sex: 59 / F ADM Date: 5 Loc: [facility] Room: Type: [facility] Attending Dr: Elie Jackson DO Copies to: Elie Jackson DO~ Ordering Provider: Elie Jackson DO Date of Service: 05/21/25 XR/XR knee LT 4V*: M25.562 - Pain in left knee ([id number]) XR/XR knee RT 2V: M25.562 - Pain [...] Marcell White DO 05/21/251858 Signed By: 05/21/251900 [facility] XR knee LT 4V*on 05-21-2025 XR knee LT 4V* [facility] [address] [place] [address] XRay Report Signed Patient: Aby Madrigal MR#: [id number] : 1965 Acct:[id number] Age/Sex: 59 / F ADM Date: 05/21/25 Loc: [facility] Room: Type: [facility] Attending Dr: Elie Jackson DO Copies to: Elie Jackson DO Ordering Provider: Elie Jackson DO Date of Service: 05/21/25 XR/XR knee LT 4V*: M25.562 - Pain in left knee ([id number]) XR/XR knee RT 2V: M25.562 - Pain [...] White M.D. 05/21/2025 7:01 PM Dictation Location: RADIOExpert-20 Transcribed By: HIMA 05/21/251900 Dictated By: Marcell White DO 05/21/251858 Signed By: 05/21/251900 Normal [facility] Rubén 05-14-2025 [facility] Subjective Aby Madrigal is a 59 y.o. year old female patient being seen for a follow up s/p [facility] ER visit. Patient states she was in the ER for chest discomfort. Patient states since then she has been feeling pretty good. Patient state Dr. Moran made changes to her medication. Patient states she hasn't followed through with the changes due to wanting to consult with cardiology before she changes medications. Patient states Lidia wants to cut her spirolactone in half. [...] infarction) (CMS/HCC) Hypokalemia Coronary artery disease involving [place] coronary artery of [place] heart without angina pectoris Depression, major, severe [...] and V6. She was then admitted to [facility] on 07/11/2024 with NSTEMI. She underwent [...] on 01/31/2025 she was evaluated at the [facility] because of chest pain. Workup was negative. [...] Head: Normocephalic and (more content not included)... Normal [facility] Office Visiton 05-14-2025 Follow-up visit [id number] Aby Madrigal 1965 F Date Provider Department Center 05/14/2025 GOMEZ KENDALL RIAZ [place] Family History Problem Relation Age of Onset Lung cancer Mother Accidental Father Lung cancer Sister Family Status - Relation Status Age at Mother Father Sister Brother Alive Level of Service:82653 [place] OFFICE/OUTPATIENT ESTABLISHED MOD MDM 30 MIN [facility] 37on 04-23-2025 37 1. Change carvedilol to 1.5 tablets twice daily. 2. Start taking spironolactone half tablet once daily. 3. You can stop clopidogrel in July 2025. [facility] Office Visiton 04-23-2025 Follow-up visit [id number] Aby Madrigal S 1965 Date Provider Department Center 04/23/2025 GOMEZ KENDALL RIAZ [place] Family History Problem Relation Age of Onset Lung cancer Mother Accidental Father Lung cancer Sister Family Status - Relation Status Age at Mother Father Sister Brother Alive Level of Service:05731 [place] OFFICE/OUTPATIENT ESTABLISHED MOD MDM 30 MIN [facility] Orders Onlyon 04-20-2025 Orders Only [id number] Aby Madrigal 1965 Date Provider Department Center 04/20/2025 [id number], [facility] RIAZ [place] Family History Problem Relation Age of Onset Lung cancer Mother Accidental Father Lung cancer Sister Family Status - Relation Status Age at Mother Father Sister Brother Alive [facility] 3704-10-2025 37 It was good to see y [...] see where your potassium levels are. Normal [facility] Follow-Upon 04-10-2025 Follow-Up [id number] Aby Madrigal 1965 F Date Provider Department Center 04/10/2025 [id number], [facility] ENDOCR [facility] Family History Problem Relation Age of Onset Lung cancer Mother Accidental Father Lung cancer Sister Family Status - Relation Status Age at Mother Father Sister Brother Alive Level of Service:61254 [place] OFFICE/OUTPATIENT ESTABLISHED MOD MDM 30 MIN Reason for Visit and Comments: Adrenal Problem [420] - Follow up Normal [facility] Influenza virus B Ag [Presen ce] in Upper respiratory specimen by Rapid immunoassayon 03-03-2025 FLUBV Ag IA.rapid Ql (Nph) Negative [facility] No Panel Informationon 03-03 Influenza Type A (Rapid) Negative [facility] POC SARS CoV-2 Antigen Negative [facility] 29on 03-02-2025 29 Addended by: FENG CHRISTIE on: 03/02/2025 09:34 AM Modules accepted: Orders Normal [facility] 36on 03-02-2025 36 Called patient over the phone at 9:10 AM - I have reviewed results from adrenal venous sampling performed on 02/07/2025 at [facility]. 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 Orders Onlyon 03-02-2025 Orders Only [id number] Aby Madrigal 1965 F Date Provider Department Center 03/02/2025 [id number], [facility] ENDOCR [facility] Family History Problem Relation Age of Onset Lung cancer Mother Accidental Father Lung cancer Sister Family Status - Relation Status Age at Mother Father Sister Brother Alive [facility] 36on 02-28-2025 36 Results routed to you. [facility] Please call patient and let her know that I've requested the test results from [facility] ([facility]) Ill be able to discuss the results with her tomorrow Thank you [facility] 36on 02-26-2025 36 Patient called regarding IR venography she had done 02/07. Requesting to discuss results and how she should follow up per Dr. Christie [facility] Office Visiton 02-26-2025 Follow-up visit [id number] Aby Madrigal 1965 F Date Provider Department Center 02/26/2025 Octavio-GOMEZ [facility] Family History Problem Relation Age of Onset Lung cancer Mother Accidental Father Lung cancer Sister Family Status - Relation Status Age at Mother Father Sister Brother Alive Level of Service:97084 [place] OFFICE/OUTPATIENT ESTABLISHED LOW MDM 20 MIN Normal [facility] Telephoneon 02-26-2025 Telephone [id number] Aby Madrigal 1965 Provider Department Center 02/26/2025 JESSY MATSON [facility] NEPH [facility] Family History Problem Relation Age of Onset Lung cancer Mother Accidental Father Lung cancer Sister Family Status - Relation Status Age at Mother Father Sister Brother Alive [facility] Cortisol [Mass/Vol]on 2024 CORTISOL 5.2 ug/dL Normal [facility] Comment on above: Result Comment: Due to the diurnal variation of cortisol levels in normal subjects, all cortisol measurements should be referenced to the time of day of sample collection. AM Cortisol Age>=6 6.7-22.4 ug/dL PM Cortisol Age>=6 <10 ug/dL Performed By: #### 2 143-6 #### [facility] ([id number]) [address], [address] [place] [address] CORTISOL 5.2 ug/dL Normal [facility] Comment on above: Result Comment: Due to the diurnal variation of cortisol levels in normal subjects, all cortisol measurements should be referenced to the time of day of sample collection. AM Cortisol Age>=6 6.7-22.4 ug/dL PM Cortisol Age>=6 <10 ug/dL Performed By: #### 2 143-6 #### [facility] ([id number]) [facility] [place] [address] CORTISOL 10.9 ug/dL Normal [facility] Comment on above: Result Comment: Due to the diurnal variation of cortisol levels in normal subjects, all cortisol measurements should be referenced to the time of day of sample collection. AM Cortisol Age>=6 6.7-22.4 ug/dL PM Cortisol Age>=6 <10 ug/dL Performed By: #### 2 143-6 #### [facility] ([id number]) [address], [address] [place] [address] CORTISOL 11.1 ug/dL Normal [facility] Comment on above: Result Comment: Due to the diurnal variation of cortisol levels in normal subjects, all cortisol measurements should be referenced to the time of day of sample collection. AM Cortisol Age>=6 6.7-22.4 ug/dL PM Cortisol Age>=6 <10 ug/dL Performed By: #### 2 143-6 #### [facility] ([id number]) [address], [address] [place] [address] CORTISOL 5.7 ug/dL Normal [facility] Comment on above: Result Comment: Due to the diurnal variation of cortisol levels in normal subjects, all cortisol measurements should be referenced to the time of day of sample collection. AM Cortisol Age>=6 6.7-22.4 ug/dL PM Cortisol Age>=6 <10 ug/dL Performed By: #### 2 143-6 #### [facility] ([id number]) [address], [address] [place] [address] CORTISOL 14.3 ug/dL Normal [facility] Comment on above: Result Comment: Due to the diurnal variation of cortisol levels in normal subjects, all cortisol measurements should be referenced to the time of day of sample collection. AM Cortisol Age>=6 6.7-22.4 ug/dL PM Cortisol Age>=6 <10 ug/dL Performed By: #### 2 143-6 #### [facility] ([id number]) [address] [place] [address] [facility] ORDERon 025 TEST NAME AIVC INFERIOR VENA CAVA Normal [facility] Comment on above: Result Comment: Cody ected on 02/07 AT 1204: Previously reported as INFERIOR VENA CAVA TEST RESULT SEE COMMENTS 02/10/2025 12:12 AM Normal [facility] Comment on above: Result Comment: NOTE Test Result Flag Unit RefValue Aldosterone, IVC <4.0 ng/dL Not applicable ADDITIONAL INFORMATION This test was developed and its performance characteristics determined by [facility] in a manner consistent with CLIA requirements. This test has not been cleared or approved by the U.S. Food and Drug Administration. Test Performed by: [facility] [place] [address] [employer]ge Mate: Shawanda Jimenez Ph.D.; CLIA# [id number] Result Comment: NOTE Test Result Flag Unit RefValue Aldosterone, LAV 32 ng/dL Not applicable ADDITIONAL INFORMATION This test was developed and its performance characteristics determined by [facility] in a manner consistent with CLIA requirements. This test has not been cleared or approved by the U.S. Food and Drug Administration. Test Performed by: [facility] [place] [address] [employer] Mate: Shawanda Jimenez Ph.D.; CLIA# [id number] Result Comment: NOTE Test Result Flag Unit RefValue Aldosterone, LAV 28 ng/dL Not applicable ADDITIONAL INFORMATION This test was developed and its performance characteristics determined by [facility] in a manner consistent with CLIA requirements. This test has not been cleared or approved by the U.S. Food and Drug Administration. Test Performed by: [facility] [place] [address] [employer] Mate: Shawanda Jimenez Ph.D.; CLIA# [id number] Result Comment: NOTE Test Result Flag Unit RefValue Aldosterone, KELLEY <4.0 ng/dL Not applicable ADDITIONAL INFORMATION This test was developed and its performance characteristics determined by [facility] in a manner consistent with CLIA requirements. This test has not been cleared or approved by the U.S. Food and Drug Administration. Test Performed by: [facility] [place] [address] [employer] Mate: Shawanda Jimenez Ph.D.; CLIA# [id number] Result Comment: NOTE Test Result Flag Unit RefValue Aldosterone, KELLEY 74 ng/dL Not applicable ADDITIONAL INFORMATION This test was developed and its performance characteristics determined by [facility] in a manner consistent with CLIA requirements. This test has not been cleared or approved by the U.S. Food and Drug Administration. Test Performed by: [facility] [place] [address] [employer] Mate: Shawanda Jimenez Ph.D.; CLIA# [id number] TEST NAME SUBHAV LEFT ADRENAL Normal [facility] TEST NAME ALAV LEFT ADRENAL Normal [facility] TEST NAME ARAV RIGHT ADRENAL Normal [facility] TEST NAME ARAV RIGHT ADRENAL Normal [facility] Telephoneon 01-18-2025 Telephone [id number] Aby Madrigal 1965 F Date Provider Department Center 01/18/2025 FENG [place] [facility] ENDOCR [facility] Family History Problem Relation Age of Onset Lung cancer Mother Accidental Father Lung cancer Sister Family Status - Relation Status Age at Mother Father Sister Brother Alive [facility] Follow-Upon 01-09-2025 Follow-Up [id number] Aby Madrigal 1965 F Date Provider Department Center 01/09/2025 [id number] [facility] [facility] Family History Problem Relation Age of Onset Lung cancer Mother No Known Problems Father Lung cancer Sister Family Status - Relation Status Age at Mother Father Sister Level of Service:41190 [place] OFFICE/OUTPATIENT ESTABLISHED LOW MDM 20 MIN [facility] 36on 01-04-2025 36 Called patient's daughter [...] Melanie thanked me for the call [facility] 36on 01-03-2025 36 Voicemail. Patient's daughter called in, she thought Dr. Christie was going to order testing where they go in through the groin to see which kidney is dumping off excess hormones, she would like a call back. [facility] Telephoneon 01-03-2025 Telephone [id number] Aby Madrigal 1965 F Date Provider Department Center 01/03/2025 [id number] BOWMAN [facility] ENDOCR [facility] Family History Problem Relation Age of Onset Lung cancer Mother No Known Problems Father Lung cancer Sister Family Status - Relation Status Age at Mother Father Sister Normal [facility] ALDOSTERONEon 01-02-2025 ALDOSTERONE (NG/DL) IN SER/PLAS 7.3 ng/dL Normal [facility] Comment on above: Result Comment: INTE [...] reference intervals for this test in the [employer] Test Directory ([employer]lá). Performed By: [place] [address] [employer] Operator: Navneet Simeon MD, PhD CLIA Number: [id number] Performed By: #### L [id number] #### [facility] ([facility]) [address] [place] [address] ALDOSTERONE (NG/DL) IN SER/PLAS 14.2 ng/dL Normal [facility] Comment on above: Result Comment: INTE [...] reference intervals for this test in the [employer] Test Directory ([employer]lá). Performed By: [facility] [address] [place] [address] [employer] Operator: Navneet Simeon MD, PhD CLIA Number: [id number] Performed By: #### L [id number] #### [facility] ([facility]) [address] [place] [address] CORTISOLon 01-02-2025 CORTISOL (UG/DL) IN SER/PLAS 3.6 ug/dL Normal 0-[address] [facility] Comment on above: Performed By: #### L [id number] #### [facility] ([facility]) [address] [place] [address] CORTISOL (UG/DL) IN SER/PLAS 9.0 ug/dL Normal 6-[address] [facility] Comment on above: Performed By: #### L [id number] #### [facility] ([facility]) [address] [place] [address] NURSNOTEon 01-02-2025 NURSNOTE T-0=4835, at this ti me VS taken, IV [...] pt up to BR and released. Normal [facility] POTASSIUMon 01-02-2025 Potassium [Moles/Vol] 3.9 mmol/L Normal 3.5-5.[address] [facility] Comment on above: Performed By: #### L [id number] #### [facility] ([facility]) [address] [place] [address] Potassium [Moles/Vol] 4.0 mmol/L Normal 3.5-5.[address] [facility] Comment on above: Performed By: #### L [id number] ####[facility] ([facility])[address] [place] [address] RENIN ACTIVITYon 01-02-2025 RENIN ACTIVITY <0.[address] [facility] Comment on above: Result Comment: INTE [...] developed and its performance characteristics determined by [facility]. It has not been cleared or approved by the [place] Food and Drug Administration. This test was performed in a CLIA certified laboratory and is intended for clinical purposes. Performed By: [facility] [address] [place] [address] [employer] Operator: Navneet Simeon MD, PhD [place] Number: [id number] Performed By: #### L [id number] #### [facility] ([facility]) [address] [place] [address] RENIN ACTIVITY <0.[address] [facility] Comment on above: Result Comment: INTE RPRETIVE INFORMATION: Renin Activity Adult, Normal sodium diet: Supine ................. 0.2-1.6 ng/mL/hr Upright ................ 0.5-4.0 ng/mL/hr Children, Normal sodium diet, Supine: [place] (1-7 days) ..... 2.0-35.0 ng/mL/hr Cord blood [...] developed and its performance characteristics determined by [employer]. It has not been cleared or approved by the US Food and Drug Administration. This test was performed in a CLIA certified laboratory and is intended for clinical purposes. Performed By: [facility] [address] [place] [address] [employer] Operator: Navneet Simeon MD, PhD CLIA Number: [id number] Performed By: #### L [id number] #### [facility] ([facility]AKER) [address] [place] [address] Orders Only01-01-2025 Orders Only [id number] Strausbaugh,Aby S 1965 F Date Provider Department Center 01/01/2025 [id number] GRIDER [facility] 2A Second Fl Family History Problem Relation Age of Onset Lung cancer Mother No Known Problems Father Lung cancer Sister Family Status - Relation Status Age at Mother Father Sister Normal [facility] Orders Only [id number] Strausbaugh,Aby S 1965 F Date Provider Department Center 01/01/2025 [id number] SALMON [facility] 2A Second Fl Family History Problem Relation Age of Onset Lung cancer Mother No Known Problems Father Lung cancer Sister Family Status - Relation Status Age at Mother Father Sister Normal [facility] Orders Onlyon 12-26-2024 Orders Only [id number] Strausbaugh,Aby S 1965 F Date Provider Department Center 12/26/2024 [id number] GRIDER [facility] 2A Second Fl Family History Problem Relation Age of Onset Lung cancer Mother No Known Problems Father Lung cancer Sister Family Status - Relation Status Age at Mother Father Sister Normal [facility] Orders Only [id number] Strausbaugh,Aby S 1965 F Date Provider Department Center 12/26/2024 [id number] LUNSFORD [facility] 2A Second Fl Family History Problem Relation Age of Onset Lung cancer Mother No Known Problems Father Lung cancer Sister Family Status - Relation Status Age at Mother Father Sister Normal [facility] Orders Only [id number] Strausbaugh,Aby S 1965 F Date Provider Department Center 12/26/2024 [id number] CORTEZ [facility] 2A Second Fl Family History Problem Relation Age of Onset Lung cancer Mother No Known Problems Father Lung cancer Sister Family Status - Relation Status Age at Mother Father Sister Normal [facility] 36on 12-25-2024 36 Patient has not hear d from the [facility] about scheduling this, she is going to reach out to them directly, but could someone reach out to the [facility] about what's going on? [facility] Orders Onlyon 12-25-2024 Orders Only [id number] Strausbaugh,Aby S 1965 F Date Provider Department Center 12/25/2024 190-JOSE PRICE DCC INF DCC Family History Problem Relation Age of Onset Lung cancer Mother No Known Problems Father Lung cancer Sister Family Status - Relation Status Age at Mother Father Sister Normal [facility] Orders Only [id number] Strausbaugh,Aby S 1965 F Date Provider Department Center 12/25/2024 GIBSON CISNEROS [facility] 2A Second Fl Family History Problem Relation Age of Onset Lung cancer Mother No Known Problems Father Lung cancer Sister Family Status - Relation Status Age at Mother Father Sister [facility] 36on 12-12-2024 36 Antonio I signed the orders for saline infusion test back on Oct 12 (its a Therapy Plan) Can we call the [facility] and ask what more do they need to get the patient scheduled thanks [facility] 36on 12-08-2024 36 Patient had not hear d from the [facility] about scheduling a Saline Infusion Test, when I look into the chart, I cannot find any orders [facility] Telephoneon 12-08-2024 Telephone [id number] Strausbaugh,Aby S 1965 F Date Provider Department Center 12/08/2024 [id number] WANG [facility] ENDOCR [facility] Family History Problem Relation Age of Onset Lung cancer Mother No Known Problems Father Lung cancer Sister Family Status - Relation Status Age at Mother Father Sister Normal [facility] Abstracton 11-21-2024 Abstract [id number] Strausbaugh,Aby S 1965 F Date Provider Department Center 11/21/2024 [id number]-YWAALS-SYPDARA CARTER [facility] Family History Problem Relation Age of Onset Lung cancer Mother No Known Problems Father Lung cancer Sister Family Status - Relation Status Age at Mother Father Sister Normal [facility] CT CHEST WO IV CONTRASTon CT [...] Marlon Green MD. 5 Invalid Interpretation Code [facility] Office Visiton 10-26-2024 Follow-up visit [id number] Aby Madrigal 1965 F Date Provider Department Center 10/26/2024 383-RICHA VIRAMONTES [facility] Family History Problem Relation Age of Onset Lung cancer Mother No Known Problems Father Lung cancer Sister Family Status - Relation Status Age at Mother Father Sister Level of Service:90163 [place] OFFICE/OUTPATIENT ESTABLISHED SF MDM 10 MIN () Reason for Visit and Comments: Follow-up [126789] - F/U to review CT scan that was done today. Normal [facility] 29on 10-03-2024 29 Addended by: FENG CHRISTIE on: 10/12/2024 10:02 AM Modules accepted: Orders [facility] 37on 10-03-2024 37 It was good to see y ou again Your recent CAT scan is reassuring showing me that your left adrenal mass has actually shrunk in size we no longer need to monitor this at all with any repeat CAT scans. To confirm if you have primary aldosteronism were going to do something called a saline infusion test at the [facility] they will be in contact with you likely within the next week. This is a 2-hour test in which we infused saline 2 L and assess any changes in your aldosterone level. This is in a monitored setting so you will not be alone. [facility] Follow-Upon 10-03-2024 Follow-Up [id number] Aby Madrigal S 1965 F Date Provider Department Center 10/03/2024 [id number], WADE [facility] ENDOCR [facility] Family History Problem Relation Age of Onset Lung cancer Mother No Known Problems Father Lung cancer Sister Family Status - Relation Status Age at Mother Father Sister Level of Service:61841 [place] OFFICE/OUTPATIENT ESTABLISHED MOD MDM 30 MIN Reason for Visit and Comments: Follow-up [882503] [facility] Office Visiton 09-04-2024 Follow-up visit [id number] Aby Madrigal 1965 F Date Provider Department Center 09/04/2024 GOMEZ KENDALL [facility] Family History Problem Relation Age of Onset Lung cancer Mother No Known Problems Father Lung cancer Sister Family Status - Relation Status Age at Mother Father Sister Level of Service:57638 [place] OFFICE/OUTPATIENT ESTABLISHED MOD MDM 30 MIN [facility] ALDOSTERONEon 08-29-2024 ALDOSTERONE (NG/DL) IN SER/PLAS 13.0 ng/dL [facility] Comment on above: Result Comment: INTE [...] reference intervals for this test in the [email or web address] Test Directory ([email or web address]). Performed By: [facility] [address] [place] [address] [employer] Operator: Navneet Simeon MD, PhD CLIA Number: [id number] Performed By: #### L [id number] #### [facility] ([facility]) [address] [place] [address] Ron 08-29-2024 ALT [Catalytic activity/Vol] 25 U/L Normal 7-[address] [facility] Comment on above: Performed By: #### L [id number] #### [facility] ([facility]) [address] [place] [address] Riki 08-29-2024 AST [Catalytic activity/Vol] 21 U/L Normal 13-[address] [facility] Comment on above: Performed By: #### L [id number] #### [facility] ([facility]AK[facility]) [address] [place] [address] BASIC METABOLIC PANELon 10-0 Anion gap [Moles/Vol] 12 mmol/L Normal 7-[address] [facility] Comment on above: Performed By: #### L [id number] #### [facility] ([facility]) [address] [place] [address] Calcium [Mass/Vol] 9.3 mg/dL Normal 8.6-10.3 [facility] Comment on above: Performed By: #### L [id number] #### [facility] ([facility]) [address] [place] [address] Chloride [Moles/Vol] 105 mmol/L Normal 98-[address] [facility] Comment on above: Performed By: #### L [id number] #### [facility] ([facility]) [address] [place] [address] CO2 [Moles/Vol] 28 mmol/L Normal 21-31 [facility] Comment on above: Performed By: #### L [id number] #### [facility] ([facility]) [address] [place] [address] Creatinine [Mass/Vol] 0.95 mg/dL Normal 0.60-1.[address] [facility] Comment on above: Performed By: #### L [id number] #### [facility] ([facility]) [address] [place] [address] GLOMERULAR FILTRATION RATE ML/MIN/1.73 SQ M.PREDICTED 68.6 mL/min/1.73m*2 Normal >60.[address] [facility] Comment on above: Result Comment: The [facility]???s estimated glomerular filtration rate (eGFR) will [...] individuals. Performed By: #### L [id number] #### [facility] ([facility]) [address] [place] [address] Glucose [Mass/Vol] 99 mg/dL Normal 70-100 [facility] Comment on above: Performed By: #### L [id number] #### [facility] ([facility]) [address] [place] [address] Potassium [Moles/Vol] 3.6 mmol/L Normal 3.5-5.[address] [facility] Comment on above: Performed By: #### L [id number] #### [facility] ([facility]) [address] [place] [address] Sodium [Moles/Vol] 141 mmol/L Normal 136-145 [facility] Comment on above: Performed By: #### L [id number] #### [facility] (BEAK[facility]) [address] [place] [address] Urea nitrogen [Mass/Vol] 19 mg/dL Normal 7-[address] [facility] Comment on above: Performed By: #### L [id number] #### [facility] ([facility]) [address] [place] [address] UREA NITROGEN/CREATININE (MASS RATIO) IN SER/PLAS 20.[address] [facility] Comment on above: Performed By: #### L [id number] #### [facility] ([facility]) [address] [place] [address] CORTISOLon 08-29-2024 CORTISOL (UG/DL) IN SER/PLAS 6.1 ug/dL Normal 0-[address] [facility] Comment on above: Performed By: #### L [id number] #### [facility] ([facility]) [address] [place] [address] CT ABDOMEN PELVIS W AND WO I [...] Marybeth Bryan. [address] Invalid Interpretation Code [facility] DEXAMETHASONE LEVELon 2023 DEXAMETHASONE <50.[address] [facility] Comment on above: Order Comment: Waive d Testing in the ED is performed under the ED CLIA certificate #[id number]. Result Comment: INTE RPRETIVE INFORMATION: Dexamethasone, Serum [...] developed and its performance characteristics determined by [facility]. It has not been cleared or approved by the US Food and Drug Administration. This test was performed in a CLIA certified laboratory and is intended for clinical purposes. Performed By: [facility] [address] [place] [address] [employer] Operator: Navneet Simeon MD, PhD CLIA Number: [id number] Performed By: #### L [id number] #### [facility] ([facility]) [address] [place] [address] LIPID PANELon 08-29-2024 CHOL/HDL 2.4 mg/dL Normal [facility] Comment on above: Performed By: #### L [id number] #### [facility] ([facility]) [address] [place] [address] Cholesterol [Mass/Vol] 80 mg/dL Low 120-[address] [facility] Comment on above: Performed By: #### L [id number] #### [facility] ([facility]) [address] [place] [address] Magnesium [Mass/Vol] 96 mg/dL Normal 40-[address] [facility] Comment on above: Result Comment: TRIG LYCERIDE REFERENCE RANGE: 20 YEARS AND OLDER CARDIOVASCULAR RISK LESS THAN 150 mg/dL LOW RISK 150 TO 199 mg/dL BORDERLINE RISK 200 mg/dL AND GREATER HIGH RISK Performed By: #### L [id number] #### [facility] ([facility]) [address] [place] [address] Magnesium [Mass/Vol] 28 mg/dL Normal 0-[address] [facility] Comment on above: Performed By: #### L [id number] #### [facility] ([facility]) [address] [place] [address] Magnesium [Mass/Vol] 33 mg/dL Normal 23-[address] [facility] Comment on above: Performed By: #### L [id number] #### [facility] ([facility]) [address] [place] [address] NON HDL CHOL. (LDL+VLDL) [address] [facility] Comment on above: Performed By: #### L [id number] #### [facility] ([facility]) [address] [place] [address] TOTAL VLDL-C 19 mg/dL Normal 0-[address] [facility] Comment on above: Performed By: #### L [id number] #### [facility] ([facility]) [address] [place] [address] Labon 08-29-2024 Lab [id number] AntoinetteroAby Cristina 1965 F Date Provider Department Center 08/29/2024 [id number]-[facility] OPD LAB RESOURCE [facility] OPD [facility] Family History Problem Relation Age of Onset Lung cancer Mother No Known Problems Father Lung cancer Sister Family Status - Relation Status Age at Mother Father Sister Normal [facility] RENIN ACTIVITYon 08-29-2024 RENIN ACTIVITY <0.[address] [facility] Comment on above: Result Comment: INTE [...] developed and its performance characteristics determined by [facility]. It has not been cleared or approved by the US Food and Drug Administration. This test was performed in a CLIA certified laboratory and is intended for clinical purposes. Performed By: [facility] [address] [place] [address] [employer] Operator: Navneet Simeon MD, PhD CLIA Number: [id number] Performed By: #### L [id number] #### [facility] ([facility]AKER) [address] [place] [address] 36on 08-10-2024 36 Updated patient on Nodify blood test results and plan for f/u CT and appt scheduled for 10/26/24. Normal [facility] Letter (Out)on 08-09-2024 Letter (Out) [id number] Aby Madrigal 1965 F Date Provider Department Center 08/09/2024 None-None [facility] ADMIT None Family History Problem Relation Age of Onset Lung cancer Mother No Known Problems Father Lung cancer Sister Family Status - Relation Status Age at Mother Father Sister [facility] 36on 08-08-2024 36 Called patient over the phone at 9:17 AM - discussed recent lab results from [place] (including M cortisol of 1.7 after dex, renin undetectable, aldosterone level 4.4) - ruled out autonomous cortisol production - she has stopped spironolactone for about 2 weeks now, continue to hold this until our next appt and we will reassess ARR. We will meet again on Oct 03 She thanked me for the call Normal [facility] Orders Onlyon 08-08-2024 Orders Only [id number] Rohan,Aby S 1965 F Date Provider Department Center 08/08/2024 RICHA [facility] ONC NICKI Family History Problem Relation Age of Onset Lung cancer Mother No Known Problems Father Lung cancer Sister Family Status - Relation Status Age at Mother Father Sister Normal [facility] Telephoneon 08-08-2024 Telephone [id number] Rohan,Aby S 1965 F Date Provider Department Center 08/08/2024 FENG SWEENEY [facility] ENDOCR [facility] Family History Problem Relation Age of Onset Lung cancer Mother No Known Problems Father Lung cancer Sister Family Status - Relation Status Age at Mother Father Sister Normal 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 CT CHEST 04-21-24- PET 06-21-24 Films requested 07-18-24 HAVING HARD TIME GETTING FILMS FROM [facility] AGAIN. Ginny at [place] ([phone] direct line) is working on sending them. CHECK [facility] FOR FILMS PLEASE Normal [facility] 37on 07-18-2024 37 It was great [...] lab work done at one of these [facility] Lab Sites The results will then come straight to me I appreciate it [facility] [address] Hours Wednesday - Wednesday 8 AM - 4PM (Closed 12 - 12:30 PM daily) Phone: [facility] [address] Hours: Wednesday 6 AM - 5 PM Saturday: 7 AM - 2 PM Phone: [address] [place] Hours: Wednesday - Wednesday 7 AM - 3:30 PM Phone: [facility] [address] Hours: Wednesday - Wednesday 7 AM - 5:30 PM Phone: [facility] [address] [place] Hours: Wednesday - Wednesday 8 AM - 4:30 PM Phone: Normal [facility] EDNURSon 07-18-2024 EDNURS ADR and relevant inf o reported to [facility] in pharmacy d/t safety net being down. Viet Kelly RN 07/18/[address] [facility] EDNURS SENT FROM MD OFFICE RE: LOW BP; RECENT DC FROM [facility] FOR SAME Normal [facility] EDPROVon 07-18-2024 EDPROV HPI Chief Complaint [...] new meds yesterday. 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 Normal [facility] Office Visiton 07-18-2024 Follow-up visit [id number] Aby Madrigal 1965 Date Provider Department [place] 07/18/2024 [id number] [facility] Family History Problem Relation Age of Onset Lung cancer Mother No Known Problems Father Lung cancer Sister Family Status - Relation Status Age at Mother Father Sister Level of Service:54326 [place] OFFICE/OUTPATIENT NEW MODERATE MDM 45 MINUTES Reason for Visit and Comments: Nodules [Other] Normal 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 I am calling you to follow [...] Patient Name Aby Madrigal Date 07/13/24 [facility] Telephoneon 07-13-2024 Telephone [id number] Aby Madrigal 1965 F Date Provider Department Center 07/13/2024 GINNY MALONEY [facility] C Family History Problem Relation Age of Onset Lung cancer Mother No Known Problems Father Lung cancer Sister Family Status - Relation Status Age at Mother Father Sister Reason for Visit and Comments: Hospital Follow-up [832] Normal [facility] 30on 07-12-2024 30 The patient is [...] these barriers include . Normal [facility] ANTI-XA (HEPARIN LEVEL)on HEPARIN UNFRACTIONATED (U/ML) IN PPP BY CHROMOGENIC METHOD 0.60 IU/mL Normal 0.3-0.[address] [facility] Comment on above: Order Comment: Check anti-Xa level every 6 hours while on heparin infusion, or per protocol. Result Comment: Moroni roxaban and Apixaban will interfere with the anti Xa assay used to monitor UFH and LMWH. Performed By: #### L [id number] #### [facility] ([facility]) [address] [place] [address] BASIC METABOLIC PANELon 06-23 Anion gap [Moles/Vol] 10 mmol/L Normal 7- [facility] Comment on above: Performed By: #### L [id number] #### [facility] ([facility]) [address] [place] [address] Calcium [Mass/Vol] 8.8 mg/dL Normal 8.6-10.3 [facility] Comment on above: Performed By: #### L [id number] #### [facility] ([facility]) [address] [place] [address] Chloride [Moles/Vol] 108 mmol/L High 98-[address] [facility] Comment on above: Performed By: #### L [id number] #### [facility] ([facility]) [address] [place] [address] CO2 [Moles/Vol] 27 mmol/L Normal - [facility] Comment on above: Performed By: #### L [id number] #### [facility] ([facility]) [address] [place] [address] Creatinine [Mass/Vol] 0.89 mg/dL Normal 0.60-1.[address] [facility] Comment on above: Performed By: #### L [id number] #### [facility] ([facility]) [address] [place] [address] GLOMERULAR FILTRATION RATE ML/MIN/1.73 SQ M.PREDICTED 74.2 mL/min/1.73m*2 Normal >60.[address] [facility] Comment on above: Result Comment: The [facility]???s estimated glomerular filtration rate (eGFR) will [...] group of individuals. Performed By: #### L [id number] #### [facility] ([facility]) [address] [place] [address] Glucose [Mass/Vol] 109 mg/dL High 70-100 [facility] Comment on above: Performed By: #### L [id number] #### [facility] ([facility]) [address] [place] [address] Potassium [Moles/Vol] 3.4 mmol/L Low 3.5-5.[address] [facility] Comment on above: Performed By: #### L [id number] #### [facility] ([facility]) [address] [place] [address] Sodium [Moles/Vol] 142 mmol/L Normal 136-145 [facility] Comment on above: Performed By: #### L [id number] #### [facility] ([facility]) [address] [place] [address] Urea nitrogen [Mass/Vol] 11 mg/dL Normal 7-[address] [facility] Comment on above: Performed By: #### L [id number] #### [facility] ([facility]) [address] [place] [address] UREA NITROGEN/CREATININE (MASS RATIO) IN SER/PLAS 12.[address] [facility] Comment on above: Performed By: #### L [id number] #### [facility] ([facility]) [address] [place] [address] CBC WITH AUTO DIFFERENTIALon 07-12-2024 Basophils (Bld) [#/Vol] 0.04 10*3/uL Normal 0.00-0.[address] [facility] Comment on above: Performed By: #### L [id number] ####[facility] ([facility])[address] [place] [address] Basophils/100 WBC (Bld) 0.6 % Normal 0.0-1.[address] [facility] Comment on above: Performed By: #### L [id number] ####[facility] ([facility])[address] [place] [address] Eosinophils (Bld) [#/Vol] 0.22 10*3/uL Normal 0.00-0.[address] [facility] Comment on above: Performed By: #### L [id number] ####[facility] ([facility])[address] [place] [address] Eosinophils/100 WBC (Bld) 3.5 % Normal 0.0-6.[address] [facility] Comment on above: Performed By: #### L [id number] ####[facility] ([facility])[address] [place] [address] Erythrocyte distribution width (RBC) [Ratio] 14.5 % Normal 11.5-15.[address] [facility] Comment on above: Performed By: #### L [id number] ####[facility] ([facility])[address] [place] [address] ERYTHROCYTE MEAN CORPUSCULAR HEMOGLOBIN CONCENTRATION (G/DL) BY AUTOMATED 32.7 g/dL Normal 32.0-35.[address] [facility] Comment on above: Performed By: #### L [id number] ####[facility] ([facility])[address] [place] [address] Hematocrit (Bld) [Volume fraction] 34.2 % Low 36.0-48.[address] [facility] Comment on above: Performed By: #### L [id number] ####[facility] (BEAKER)[address] [place] [address] Hemoglobin (Bld) [Mass/Vol] 11.2 g/dL Low 12.0-15.[address] [facility] Comment on above: Performed By: #### L [id number] ####[facility] (BEAKER)[address] [place] [address] Immature granulocytes (Bld) [#/Vol] 0.01 10*3/uL Normal 0.00-0.[address] [facility] Comment on above: Performed By: #### L [id number] ####[facility] (BE[facility]ER)[address] [place] [address] Immature granulocytes/100 WBC (Bld) 0.2 % Normal 0.0-1.[address] [facility] Comment on above: Performed By: #### L [id number] ####[facility] ([facility])[address] [place] [address] Lymphocytes (Bld) [#/Vol] 2.37 10*3/uL Normal 1.20-4.[address] [facility] Comment on above: Performed By: #### L [id number] ####[facility] ([facility]ER)[address] [place] [address] Lymphocytes/100 WBC (Bld) 37.8 % Normal 20.0-45.[address] [facility] Comment on above: Performed By: #### L [id number] ####[facility] (BEAKER)[address] [place] [address] MCH (RBC) [Entitic mass] 27.4 pg Normal 27.0-33.[address] [facility] Comment on above: Performed By: #### L [id number] ####[facility] LAB (BEAKER)[address] [place] [address] MCV (RBC) [Entitic vol] 83.6 fL Normal 82.0-98.[address] [facility] Comment on above: Performed By: #### L [id number] ####[facility] LAB (BEAKER)[address] [place] [address] Monocytes (Bld) [#/Vol] 0.43 10*3/uL Normal 0.10-1.[address] [facility] Comment on above: Performed By: #### L [id number] ####[facility] (BEAKER)[address] [place] [address] Monocytes/100 WBC (Bld) 6.9 % Normal 5.0-12.[address] [facility] Comment on above: Performed By: #### L [id number] ####[facility] LAB (BEAKER)[address] [place], [place] [address] Neutrophils (Bld) [#/Vol] 3.20 10*3/uL Normal 1.60-7.[address] [facility] Comment on above: Performed By: #### L [id number] ####[facility] LAB (BEAKER)[address] [place], [place] [address] Neutrophils/100 WBC (Bld) 51.0 % Normal 40.0-72.[address] [facility] Comment on above: Performed By: #### L [id number] ####[facility] LAB (BEAKER)[address] [place], [place] [address] NRBC (PER 100 WBCS) BY AUTOMATED COUNT 0.0 % Normal [address] [facility] Comment on above: Performed By: #### L [id number] ####[facility] LAB (BEAKER)[address] [place], [place] [address] PLATELETS (10*3/UL) IN BLOOD AUTOMATED COUNT 223 10*3/uL Normal 150-[address] [facility] Comment on above: Performed By: #### L [id number] ####[facility] LAB (BEAKER)[address] [place], [place] [address] RBC (Bld) [#/Vol] 4.09 10*6/uL Normal 3.80-5.00 [facility] Comment on above: Performed By: #### L [id number] ####[facility] LAB (BEAKER)[address] [place] [address] WBC (Bld) [#/Vol] 6.27 10*3/uL Normal 4.00-10.60 [facility] Comment on above: Performed By: #### L [id number] ####[facility] LAB ([facility])[address] [place] [address] MAGNESIUMon 07-12-2024 Magnesium [Mass/Vol] 1.7 mg/dL Low 1.9-2.[address] [facility] Comment on above: Performed By: #### L [id number] #### [facility] ([facility]) [address] [place] [address] POCT GLUCOSE METER UNSOLICIT ED RESULTSon 07-12-2024 Glucose [Mass/Vol] 102 mg/dL Normal 70-105 [facility] Comment on above: Order Comment: Waive d Testing in the ED is performed under the ED CLIA certificate #[id number]. Result Comment: [email or web address] Performed By: #### L [id number] #### [facility] ([facility]) [address] [place] [address] TROPONIN Ion 07-12-2024 Troponin I.cardiac [Mass/Vol] 0.01 ng/mL Normal 0.00-0.[address] [facility] Comment on above: Performed By: #### L [id number] #### [facility] ([facility]) [address] [place] [address] 30on 07-11-2024 30 The patient is Moderately [...] or improved Outcome: Progressing Normal [facility] 30 The patient is Moderately Stable [...] these barriers include . Normal [facility] ALDOSTERONEon 07-11-2024 ALDOSTERONE (NG/DL) IN SER/PLAS 4.9 ng/dL Normal [facility] Comment on above: Result Comment: INTE [...] reference intervals for this test in the [email or web address] [facility] Test Directory ([email or web address]). Performed By: [facility] [address] [place] [address] [employer] Operator: Navneet Simeon MD, PhD CLIA Number: [id number] Performed By: #### L [id number] #### [facility] (BEAKER) [address] [place] [address] ANTI-XA (HEPARIN LEVEL)on HEPARIN UNFRACTIONATED (U/ML) IN PPP BY CHROMOGENIC METHOD 0.42 IU/mL Normal 0.3-0.[address] [facility] Comment on above: Order Comment: Check anti-Xa level every 6 hours while on heparin infusion, or per protocol. Result Comment: Radha roxaban and Apixaban will interfere with the anti Xa assay used to monitor UFH and LMWH. Performed By: #### L [id number] ####[facility] LAB (BEAKER)[address] [place] [address] HEPARIN UNFRACTIONATED (U/ML) IN PPP BY CHROMOGENIC METHOD 0.20 IU/mL Low 0.3-0.[address] [facility] Comment on above: Order Comment: Check anti-Xa level every 6 hours while on heparin infusion, or per protocol. Result Comment: Radha roxaban and Apixaban will interfere with the anti Xa assay used to monitor UFH and LMWH. Performed By: #### L [id number] #### [facility] LAB (BEAKER) [address] [place] [address] APTTon 07-11-2024 ACTIVATED PARTIAL THROMBOPLASTIN TIME IN PPP BY COAGULATION ASSAY 43.0 Seconds High 25.0-35.[address] [facility] Comment on above: Result Comment: Clin ical significance of the APTT is questionable in the presence of heparin. Performed By: #### L [id number] #### [facility] LAB (BEAKER) [address] [place] [address] BASIC METABOLIC PANELon 06-23 Anion gap [Moles/Vol] 9 mmol/L Normal 7-[address] [facility] Comment on above: Performed By: #### L [id number] #### [facility] ([facility]) [address] [place] [address] Calcium [Mass/Vol] 8.8 mg/dL Normal 8.6-10.3 [facility] Comment on above: Performed By: #### L [id number] #### [facility] ([facility]) [address] [place] [address] Chloride [Moles/Vol] 108 mmol/L High 98-[address] [facility] Comment on above: Performed By: #### L [id number] #### [facility] ([facility]) [address] [place] [address] CO2 [Moles/Vol] 28 mmol/L Normal 21-31 [facility] Comment on above: Performed By: #### L [id number] #### [facility] (BEAKER) [address] [place] [address] Creatinine [Mass/Vol] 1.09 mg/dL Normal 0.60-1.[address] [facility] Comment on above: Performed By: #### L [id number] #### [facility] ([facility]) [address] [place] [address] GLOMERULAR FILTRATION RATE ML/MIN/1.73 SQ M.PREDICTED 58.2 mL/min/1.73m*2 Low >60.[address] [facility] Comment on above: Result Comment: The [facility]???s estimated glomerular filtration rate (eGFR) will [...] individuals. Performed By: #### L [id number] #### [facility] (BEAKER) [address] [place] [address] Glucose [Mass/Vol] 113 mg/dL High 70-100 [facility] Comment on above: Performed By: #### L [id number] #### [facility] (BEAKER) [address] [place] [address] Potassium [Moles/Vol] 3.4 mmol/L Low 3.5-5.[address] [facility] Comment on above: Performed By: #### L [id number] #### [facility] (BEAKER) [address] [place] [address] Sodium [Moles/Vol] 142 mmol/L Normal 136-145 [facility] Comment on above: Performed By: #### L [id number] #### [facility] (BEAKER) [address] [place] [address] Urea nitrogen [Mass/Vol] 14 mg/dL Normal 7-[address] [facility] Comment on above: Performed By: #### L [id number] #### [facility] (BEAKER) [address] [place] [address] UREA NITROGEN/CREATININE (MASS RATIO) IN SER/PLAS 12.[address] [facility] Comment on above: Performed By: #### L [id number] #### [facility] (BEAKER) [address] [place] [address] CBC WITH AUTO DIFFERENTIALon 07-11-2024 Basophils (Bld) [#/Vol] 0.04 10*3/uL Normal 0.00-0.[address] [facility] Comment on above: Performed By: #### L [id number] #### [facility] (BEAKER) [address] [place] [address] Basophils/100 WBC (Bld) 0.6 % Normal 0.0-1.[address] [facility] Comment on above: Performed By: #### L [id number] #### [facility] (BEAKER) [address] [place] [address] Eosinophils (Bld) [#/Vol] 0.16 10*3/uL Normal 0.00-0.[address] [facility] Comment on above: Performed By: #### L [id number] #### [facility] (BEAKER) [address] [place] [address] Eosinophils/100 WBC (Bld) 2.2 % Normal 0.0-6.[address] [facility] Comment on above: Performed By: #### L [id number] #### [facility] (BEAKER) [address] [place] [address] Erythrocyte distribution width (RBC) [Ratio] 14.6 % Normal 11.5-15.[address] [facility] Comment on above: Performed By: #### L [id number] #### [facility] (BEAKER) [address] [place] [address] ERYTHROCYTE MEAN CORPUSCULAR HEMOGLOBIN CONCENTRATION (G/DL) BY AUTOMATED 32.0 g/dL Normal 32.0-35.[address] [facility] Comment on above: Performed By: #### L [id number] #### [facility] (BEAKER) [address] [place] [address] Hematocrit (Bld) [Volume fraction] 36.2 % Normal 36.0-48.[address] [facility] Comment on above: Performed By: #### L [id number] #### [facility] (BEAKER) [address] [place] [address] Hemoglobin (Bld) [Mass/Vol] 11.6 g/dL Low 12.0-15.[address] [facility] Comment on above: Performed By: #### L [id number] #### [facility] (BEAKER) [address] [place] [address] Immature granulocytes (Bld) [#/Vol] 0.02 10*3/uL Normal 0.00-0.[address] [facility] Comment on above: Performed By: #### L [id number] #### [facility] (BEAKER) [address] [place] [address] Immature granulocytes/100 WBC (Bld) 0.3 % Normal 0.0-1.[address] [facility] Comment on above: Performed By: #### L [id number] #### [facility] (BEAKER) [address] [place] [address] Lymphocytes (Bld) [#/Vol] 2.34 10*3/uL Normal 1.20-4.[address] [facility] Comment on above: Performed By: #### L [id number] #### [facility] (BEAKER) [address] [place] [address] Lymphocytes/100 WBC (Bld) 32.6 % Normal 20.0-45.[address] [facility] Comment on above: Performed By: #### L [id number] #### [facility] (BEAKER) [address] [place] [address] MCH (RBC) [Entitic mass] 27.2 pg Normal 27.0-33.[address] [facility] Comment on above: Performed By: #### L [id number] #### [facility] (BEAKER) [address] [place] [address] MCV (RBC) [Entitic vol] 85.0 fL Normal 82.0-98.[address] [facility] Comment on above: Performed By: #### L [id number] #### [facility] (BEAKER) [address] [place] [address] Monocytes (Bld) [#/Vol] 0.49 10*3/uL Normal 0.10-1.[address] [facility] Comment on above: Performed By: #### L [id number] #### [facility] (BEAKER) [address] [place] [address] Monocytes/100 WBC (Bld) 6.8 % Normal 5.0-12.[address] [facility] Comment on above: Performed By: #### L [id number] #### [facility] ([facility]) [address] [place] [address] Neutrophils (Bld) [#/Vol] 4.13 10*3/uL Normal 1.60-7.[address] [facility] Comment on above: Performed By: #### L [id number] #### [facility] ([facility]) [address] [place] [address] Neutrophils/100 WBC (Bld) 57.5 % Normal 40.0-72.[address] [facility] Comment on above: Performed By: #### L [id number] #### [facility] (ELIKE) [address] [place] [address] NRBC (PER 100 WBCS) BY AUTOMATED COUNT 0.0 % Normal [address] [facility] Comment on above: Performed By: #### L [id number] #### [facility] ([place]KE) [address] [place] [address] PLATELETS (10*3/UL) IN BLOOD AUTOMATED COUNT 245 10*3/uL Normal 150-[address] [facility] Comment on above: Performed By: #### L [id number] #### [facility] [address] [place] [address] RBC (Bld) [#/Vol] 4.26 10*6/uL Normal 3.80-5.00 [facility] Comment on above: Performed By: #### L [id number] #### [facility] ([facility]) [address] [place] [address] WBC (Bld) [#/Vol] 7.18 10*3/uL Normal 4.00-10.60 [facility] Comment on above: Performed By: #### L [id number] #### [facility] ([facility]) [address] [place] [address] CONSULTon 07-11-2024 CONSULT -- Attestation signed by [...] Brown is the endocrine surgeon in the [place] area that would be most appropriate and [...] with plan for outpatient follow up with [facility]ocrinology Meseret Mac MD Cardiology Consult Note Reason for Consult: Chest pain HPI: Aby Madrigal is a 59 y.o. female patient is presenting as a transfer from [facility] for the evaluation of chest pain. Past [...] Value Ventricular Rate 56 Atrial Rate 56 [place] Interval 180 QRS DURATION 94 QT Interval 430 QTC (more content not included)... Normal [facility] EDPROVon 07-11-2024 EDPROV HPI Chief Complaint [...] Pt states she was trasnfered here from [place] to be transferred to cardiology. Pt states she had a cardiac stent placed last week. She denies fever, coughing, vomiting, abdominal pain. She admits diarrhea. She felt better when given ativan and worse when she was given morphine. She has had her gallbladder removed. 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 The Emergency Physician/SENIOR SPEECH PATHOLOGIST/PA-C assumes full responsibility for those entries. The Emergency Physician/SENIOR SPEECH PATHOLOGIST/PA-C also attests that any patient testing or treatment that was instituted by nursing staff. [facility] EDPROV HPI Chief Complaint Patient presents [...] Pt states she was trasnfered here from [place] to be transferred to cardiology. Pt states she had a cardiac stent placed last week. She denies fever, coughing, vomiting, abdominal pain. She admits diarrhea. She felt better when given ativan and worse when she was given morphine. She has had her gallbladder removed. 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 Decision-making details documented in ED Course. ECG/medicine tests: ordered and independent interpretation performed. Decision-making details documented in ED Course. Risk Drug therapy requiring intensive monitoring for toxicity. Decision regarding hospitalization. Minor surgery with identified risk factors. I, Basilia diallo (more content not included)... Invalid Interpretation Code [facility] POCT GLUCOSE METER UNSOLICIT ED RESULTSon 07-11-2024 Glucose [Mass/Vol] 122 mg/dL High 70-105 [facility] Comment on above: Order Comment: Waive d Testing in the ED is performed under the ED CLIA certificate #[id number]. Result Comment: [email or web address] Performed By: #### L [id number] #### [facility] ([facility]) [address] [place] [address] PROTIME-INRon 07-11-2024 INR IN PPP BY COAGULATION ASSAY 1.00 Normal 0.90-1.[address] [facility] Comment on above: Result Comment: ACCC [...] RANGE. CHEST 1995;108:[id number]. Performed By: #### L [id number] #### [facility] ([facility]) [address] [place] [address] PROTHROMBIN TIME (PT) IN PPP BY COAGULATION ASSAY 13.2 Seconds Normal 12.3-14.[address] [facility] Comment on above: Performed By: #### L [id number] #### [facility] [address] RENIN ACTIVITYon 07-11-2024 RENIN ACTIVITY <0.[address] [facility] Comment on above: Result Comment: INTE [...] developed and its performance characteristics determined by [facility]. It has not been cleared or approved by the [place] Food and Drug Administration. This test was performed in a CLIA certified laboratory and is intended for clinical purposes. Performed By: [facility] [address] [place] [address] [employer] Operator: Navneet Simeon MD, PhD CLIA Number: [id number] Performed By: #### L [id number] #### [facility] (BEAKER) [address] [place] [address] TROPONIN Ion 07-11-2024 Troponin I.cardiac [Mass/Vol] 0.01 ng/mL Normal 0.00-0.[address] [facility] Comment on above: Performed By: #### L [id number] ####[facility] (BEAKER)[address] [place] [address] Office Visiton 07-10-2024 Follow-up visit [id number] Aby Madrigal 1965 F Date Provider Department Center 07/10/2024 [id number] VAZQUEZ RIAZ [facility] Family History Problem Relation Age of Onset Lung cancer Mother No Known Problems Father Lung cancer Sister Family Status - Relation Status Age at Mother Father Sister Level of Service:79493 [place] OFFICE/OUTPATIENT ESTABLISHED MOD MDM 30 MIN Reason for Visit and Comments: Coronary Artery Disease [187] Post-Cath [731] Normal [facility] 36on 07-03-2024 36 Post Discharge Call Good morning, I am Ginny Garcia, RN a lead nurse from [facility]. I am calling you to follow [...] Patient Name Aby Madrigal Date 07/03/[address] [facility] Telephoneon 07-03-2024 Telephone [id number] Aby Madrigal 1965 F Date Provider Department Center 07/03/2024 Adela-GINNY GARCIA [facility] Family History Problem Relation Age of Onset Lung cancer Mother No Known Problems Father Lung cancer Sister Family Status - Relation Status Age at Mother Father Sister Reason for Visit and Comments: Hospital Follow-up [832] Normal [facility] 30on 07-01-2024 30 The patient is [...] or improved Outcome: Progressing Normal [facility] BASIC METABOLIC PANELon 06-22 Anion gap [Moles/Vol] 14 mmol/L Normal 7-[address] [facility] Comment on above: Performed By: #### L [id number] #### [facility] (BEAKER) [address] [place] [address] Calcium [Mass/Vol] 8.2 mg/dL Low 8.6-10.3 [facility] Comment on above: Performed By: #### L [id number] #### [facility] (BEAKER) [address] [place] [address] Chloride [Moles/Vol] 106 mmol/L Normal 98-[address] [facility] Comment on above: Performed By: #### L [id number] #### [facility] ([facility]) [address] [place] [address] CO2 [Moles/Vol] 25 mmol/L Normal 21-31 [facility] Comment on above: Performed By: #### L [id number] #### [facility] ([facility]) [address] [place] [address] Creatinine [Mass/Vol] 0.91 mg/dL Normal 0.60-1.[address] [facility] Comment on above: Performed By: #### L [id number] #### [facility] ([facility]) [address] [address] GLOMERULAR FILTRATION RATE ML/MIN/1.73 SQ M.PREDICTED 72.2 mL/min/1.73m*2 Normal >60.[address] [facility] Comment on above: Result Comment: The [facility]???s estimated glomerular filtration rate (eGFR) will [...] individuals. Performed By: #### L [id number] #### [facility] ([facility]) [address] [place] [address] Glucose [Mass/Vol] 101 mg/dL High 70-100 [facility] Comment on above: Performed By: #### L [id number] #### [facility] ([facility]) [address] [place] [address] Potassium [Moles/Vol] 3.5 mmol/L Normal 3.5-5.[address] [facility] Comment on above: Performed By: #### L [id number] #### [facility] (BEAKER) [address] [place] [address] Sodium [Moles/Vol] 141 mmol/L Normal 136-145 [facility] Comment on above: Performed By: #### L [id number] #### [facility] (BEAKER) [address] [place] [address] Urea nitrogen [Mass/Vol] 13 mg/dL Normal 7-[address] [facility] Comment on above: Performed By: #### L [id number] #### [facility] [address] [place] [address] UREA NITROGEN/CREATININE (MASS RATIO) IN SER/PLAS 14.[address] [facility] Comment on above: Performed By: #### L [id number] #### [facility] ([facility]) [address] [place] [address] CBCon 07-01-2024 Erythrocyte distribution width (RBC) [Ratio] 15.4 % High 11.5-15.[address] [facility] Comment on above: Performed By: #### L [id number] ####[facility] ([facility])[address] [place] [address] ERYTHROCYTE MEAN CORPUSCULAR HEMOGLOBIN CONCENTRATION (G/DL) BY AUTOMATED 32.1 g/dL Normal 32.0-35.[address] [facility] Comment on above: Performed By: #### L [id number] ####[facility] ([facility])[address] [place] [address] Hematocrit (Bld) [Volume fraction] 38.6 % Normal 36.0-48.[address] [facility] Comment on above: Performed By: #### L [id number] ####[facility] (BEAKER)[address] [place] [address] Hemoglobin (Bld) [Mass/Vol] 12.4 g/dL Normal 12.0-15.[address] [facility] Comment on above: Performed By: #### L [id number] ####[facility] (BEAKER)[address] [place] [address] MCH (RBC) [Entitic mass] 26.9 pg Low 27.0-33.[address] [facility] Comment on above: Performed By: #### L [id number] ####[facility] ([facility])[address] [place] [address] MCV (RBC) [Entitic vol] 83.7 fL Normal 82.0-98.[address] [facility] Comment on above: Performed By: #### L [id number] ####[facility] ([facility])[address] [place] [address] PLATELETS (10*3/UL) IN BLOOD AUTOMATED COUNT 238 10*3/uL Normal 150-[address] [facility] Comment on above: Performed By: #### L [id number] ####[facility] ([facility])[address] [place] [address] RBC (Bld) [#/Vol] 4.61 10*6/uL Normal 3.80-5.00 [facility] Comment on above: Performed By: #### L [id number] ####[facility] ([facility])[address] [place] [address] WBC (Bld) [#/Vol] 7.04 10*3/uL Normal 4.00-10.60 [facility] Comment on above: Performed By: #### L [id number] ####[facility] ([facility])[address] [place] [address] LIPID PANELon 07-01-2024 CHOL/HDL 3.8 mg/dL Normal [facility] Comment on above: Performed By: #### L [id number] #### [facility] ([facility]) [address] [place] [address] Cholesterol [Mass/Vol] 128 mg/dL Normal 120-[address] [facility] Comment on above: Performed By: #### L [id number] #### [facility] ([facility]) [address] [place] [address] Magnesium [Mass/Vol] 87 mg/dL Normal 40-[address] [facility] Comment on above: Result Comment: TRIG LYCERIDE REFERENCE RANGE: 20 YEARS AND OLDER CARDIOVASCULAR RISK LESS THAN 150 mg/dL LOW RISK 150 TO 199 mg/dL BORDERLINE RISK 200 mg/dL AND GREATER HIGH RISK Performed By: #### L [id number] #### [facility] ([facility]) [address] [place] [address] Magnesium [Mass/Vol] 77 mg/dL Normal 0-[address] [facility] Comment on above: Performed By: #### L [id number] #### [facility] ([facility]) [address] [place] [address] Magnesium [Mass/Vol] 34 mg/dL Normal 23-[address] [facility] Comment on above: Performed By: #### L [id number] #### [facility] ([facility]) [address] [place] [address] NON HDL CHOL. (LDL+VLDL) [address] [facility] Comment on above: Performed By: #### L [id number] #### [facility] ([facility]) [address] [place] [address] TOTAL VLDL-C 17 mg/dL Normal 0-[address] [facility] Comment on above: Performed By: #### L [id number] #### [facility] ([facility]) [address] [place] [address] MAGNESIUMon 07-01-2024 Magnesium [Mass/Vol] 2.0 mg/dL Normal 1.9-2.[address] [facility] Comment on above: Performed By: #### L [id number] #### [facility] ([facility]) [address] [place] [address] NURSNOTEon 07-01-2024 NURSNOTE Discharge instructio ns given, reviewed, questions, answered, signed, copy received. Normal [facility] POCT GLUCOSE METER UNSOLICIT ED RESULTSon 07-01-2024 Glucose [Mass/Vol] 124 mg/dL High 70-105 [facility] Comment on above: Order Comment: Waive d Testing in the ED is performed under the ED CLIA certificate #[id number]. Result Comment: [email or web address] Performed By: #### L [id number] #### [facility] ([facility]) [address] [place] [address] Glucose [Mass/Vol] 106 mg/dL High 70-105 [facility] Comment on above: Order Comment: Waive d Testing in the ED is performed under the ED CLIA certificate #[id number]. Result Comment: [email or web address] Performed By: #### L [id number] #### [facility] ([facility]) [address] [place] [address] TROPONIN Ion 07-01-2024 Troponin I.cardiac [Mass/Vol] 0.09 ng/mL High 0.00-0.[address] [facility] Comment on above: Performed By: #### L [id number] #### [facility] ([facility]) [address] [place] [address] 30on 06-30-2024 30 The patient is Moderately Stable - Low risk of patient condition declining or worsening The patient's goals for the shift include comfort, rest The clinical goals for the shift include stable vitals, comfort Problem: Pain - Adult Goal: Verbalizes/displays adequate comfort level or baseline comfort level Outcome: Not Progressing Normal [facility] 30 Daily Case Managemen t Update [...] OT Recommendations: New Consults: Normal [facility] 30 The patient is Moderately Stable - Low risk of patient condition declining or worsening The patient's goals for the shift include COMFORT The clinical goals for the shift include VSS Over the shift, the patient did not make progress toward the following goals. Barriers to progression include . Recommendations to address these barriers include . Normal [facility] ANTI-XA (HEPARIN LEVEL)on HEPARIN UNFRACTIONATED (U/ML) IN PPP BY CHROMOGENIC METHOD 0.64 IU/mL Normal 0.3-0.[address] [facility] Comment on above: Order Comment: Check anti-Xa level every 6 hours while on heparin infusion, or per protocol. Result Comment: Radha roxaban and Apixaban will interfere with the anti Xa assay used to monitor UFH and LMWH. Performed By: #### L [id number] ####[facility] ([facility])[address] , [place] [address] BASIC METABOLIC PANELon Anion gap [Moles/Vol] 11 mmol/L Normal 7-[address] [facility] Comment on above: Performed By: #### L [id number] #### [facility] ([facility]) [address] [facility] [place] [address] Calcium [Mass/Vol] 8.3 mg/dL Low 8.6-10.3 [facility] Comment on above: Performed By: #### L [id number] #### [facility] ([facility]) [address] [place] [address] Chloride [Moles/Vol] 110 mmol/L High 98-[address] [facility] Comment on above: Performed By: #### L [id number] #### [facility] ([facility]) [address] [place] [address] CO2 [Moles/Vol] 26 mmol/L Normal 21-31 [facility] Comment on above: Performed By: #### L [id number] #### [facility] ([facility]) [address] [place] [address] Creatinine [Mass/Vol] 0.81 mg/dL Normal 0.60-1.[address] [facility] Comment on above: Performed By: #### L [id number] #### [facility] ([facility]) [address] [facility] [place] [address] GLOMERULAR FILTRATION RATE ML/MIN/1.73 SQ M.PREDICTED 83.1 mL/min/1.73m*2 Normal >60.[address] [facility] Comment on above: Result Comment: The [facility]???s estimated glomerular filtration rate (eGFR) will [...] individuals. Performed By: #### L [id number] #### [facility] ([facility]) [address] [place] [address] Glucose [Mass/Vol] 110 mg/dL High 70-100 [facility] Comment on above: Performed By: #### L [id number] #### [facility] ([facility]) [address] [place] [address] Potassium [Moles/Vol] 3.7 mmol/L Normal 3.5-5.[address] [facility] Comment on above: Performed By: #### L [id number] #### [facility] ([facility]) [address] [facility] [address] Sodium [Moles/Vol] 143 mmol/L Normal 136-145 [facility] Comment on above: Performed By: #### L [id number] #### [facility] ([facility]) [address] [place] [address] Urea nitrogen [Mass/Vol] 10 mg/dL Normal 7-[address] [facility] Comment on above: Performed By: #### L [id number] #### [facility] ([facility]) [address] [place] [address] UREA NITROGEN/CREATININE (MASS RATIO) IN SER/PLAS 12.[address] [facility] Comment on above: Performed By: #### L [id number] #### [facility] ([facility]) [address] [place] [address] CBCon 06-30-2024 Erythrocyte distribution width (RBC) [Ratio] 15.3 % High 11.5-15.[address] [facility] Comment on above: Performed By: #### L [id number] #### [facility] ([facility]) [address] [place] [address] ERYTHROCYTE MEAN CORPUSCULAR HEMOGLOBIN CONCENTRATION (G/DL) BY AUTOMATED 31.3 g/dL Low 32.0-35.[address] [facility] Comment on above: Performed By: #### L [id number] #### [facility] ([facility]) [address] [place] [address] Hematocrit (Bld) [Volume fraction] 36.7 % Normal 36.0-48.[address] [facility] Comment on above: Performed By: #### L [id number] #### [facility] ([facility]) [address] [place] [address] Hemoglobin (Bld) [Mass/Vol] 11.5 g/dL Low 12.0-15.[address] [facility] Comment on above: Performed By: #### L [id number] #### [facility] ([facility]) [address] [place] [address] MCH (RBC) [Entitic mass] 26.9 pg Low 27.0-33.[address] [facility] Comment on above: Performed By: #### L [id number] #### [facility] ([facility]) [address] [place] [address] MCV (RBC) [Entitic vol] 85.7 fL Normal 82.0-98.[address] [facility] Comment on above: Performed By: #### L [id number] #### [facility] ([facility]) [address] [place] [address] PLATELETS (10*3/UL) IN BLOOD AUTOMATED COUNT 243 10*3/uL Normal 150-[address] [facility] Comment on above: Performed By: #### L [id number] #### [facility] ([facility]) [address] [place] [address] RBC (Bld) [#/Vol] 4.28 10*6/uL Normal 3.80-5.00 [facility] Comment on above: Performed By: #### L [id number] #### [facility] ([facility]) [address] [place] [address] WBC (Bld) [#/Vol] 7.41 10*3/uL Normal 4.00-10.60 [facility] Comment on above: Performed By: #### L [id number] #### [facility] ([facility]) [address] [place] [address] CONSULTon 06-30-2024 CONSULT Cardiology Consult Note Reason for Consult: NSTEMI, transfer from [facility] HPI: Aby Madrigal, a 59 y.o. female patient, is transferred from [facility] for continuity of care. Past medical history includes: HTN History of TIA DMII HLD SURESH Overweight Patient reports that 3 days ago, she woke up in the mid of the night with indigestion, and a feeling fullness, but no pressure like chest pain. She presented to [facility], where she was found to be [...] Value Ventricular Rate 71 Atrial Rate 71 KS Interval 176 QRS DURATION 92 QT Interval 424 QTC CALCULATION(BAZETT) 460 P Conway 52 R-Conway 19 T Wave Conway 164 Impression Normal sinus rhythm Left ventricular hypertrophy with repolarization abnormality ( R in aVL , Orr product ) Abnormal ECG No previous ECGs available Lab Results Component Value Date TROPONINI 0.10 (H) 06/29/2024 No echocardiogram results found for the past 12 months No nuclear medicine results found for the past 12 months Relevant Imaging Results ECG 12 lead Normal sinu (more content not included)... Normal [facility] HPon 06-30-2024 H&P reviewed. The patient was examined and there are no changes to the H&P. 59 y.o. year old female with a PMHx significant for DM2, hypertension presents a direct mission from [facility] with a chief complaint of chest pain [...] to proceed. Signed, Yris Oakley MD PGY-4 [employer] Pager: [phone] [facility] POCT GLUCOSE METER UNSOLICIT ED RESULTSon 06-30-2024 Glucose [Mass/Vol] 170 mg/dL High 70-105 [facility] Comment on above: Order Comment: Waive d Testing in the ED is performed under the ED CLIA certificate #[id number]. Result Comment: [email or web address] Performed By: #### L [id number] ####[facility] ([facility])[address] , [place] [address] Glucose [Mass/Vol] 129 mg/dL High 70-105 [facility] Comment on above: Order Comment: Waive d Testing in the ED is performed under the ED CLIA certificate #[id number]. Result Comment: [email or web address] Performed By: #### L [id number] ####[facility] ([facility])[address] [place] [address] Glucose [Mass/Vol] 167 mg/dL High 70-105 [facility] Comment on above: Order Comment: Basel ine aPTT before initiating heparin infusion. Result Comment: [email or web address] Performed By: #### L [id number] #### [facility] ([facility]) [address] [place] [address] TROPONIN Ion 06-30-2024 Troponin I.cardiac [Mass/Vol] 0.07 ng/mL High 0.00-0.[address] [facility] Comment on above: Performed By: #### L [id number] #### [facility] ([facility]) [address] [place] [address] Troponin I.cardiac [Mass/Vol] 0.10 ng/mL High 0.00-0.[address] [facility] Comment on above: Performed By: #### L [id number] #### [facility] ([facility]) [address] [place] [address] Troponin I.cardiac [Mass/Vol] 0.11 ng/mL Critically high 0.00-0.[address] [facility] Comment on above: Result Comment: M-TR OPONIN INITIAL CRITICAL HIGH; RESPUN AND RETESTED Performed By: #### L [id number] #### [facility] ([facility]) [address] [place] [address] 30on 06-29-2024 30 The patient is Moderately Stable - Low risk of patient condition declining or worsening The patient's goals for the shift include COMFORT The clinical goals for the shift include VSS Normal [facility] APTTon 06-29-2024 ACTIVATED PARTIAL THROMBOPLASTIN TIME IN PPP BY COAGULATION ASSAY 34.5 Seconds Normal 25.0-35.[address] [facility] Comment on above: Order Comment: Basel ine aPTT before initiating heparin infusion. Result Comment: Clin ical significance of the APTT is questionable in the presence of heparin. Performed By: #### L [id number] #### [facility] ([facility]) [address] [place] [address] B-TYPE NATRIURETIC PEPTIDEon 06-29-2024 Natriuretic peptide B (Bld) [Mass/Vol] 222 pg/mL High 0-[address] [facility] Comment on above: Performed By: #### L [id number] #### [facility] ([facility]) [address] [place] [address] CBC WITH AUTO DIFFERENTIALon 06-29-2024 Basophils (Bld) [#/Vol] 0.05 10*3/uL Normal 0.00-0.[address] [facility] Comment on above: Performed By: #### L [id number] #### [facility] ([facility]) [address] [place] [address] Basophils/100 WBC (Bld) 0.6 % Normal 0.0-1.[address] [facility] Comment on above: Performed By: #### L [id number] #### [facility] ([facility]) [address] [place] [address] Eosinophils (Bld) [#/Vol] 0.18 10*3/uL Normal 0.00-0.[address] [facility] Comment on above: Performed By: #### L [id number] #### [facility] ([facility]) [address] [place] [address] Eosinophils/100 WBC (Bld) 2.1 % Normal 0.0-6.[address] [facility] Comment on above: Performed By: #### L [id number] #### [facility] ([facility]) [address] [address] Erythrocyte distribution width (RBC) [Ratio] 14.9 % Normal 11.5-15.[address] [facility] Comment on above: Performed By: #### L [id number] #### [facility] ([facility]) [address] [place] [address] ERYTHROCYTE MEAN CORPUSCULAR HEMOGLOBIN CONCENTRATION (G/DL) BY AUTOMATED 32.9 g/dL Normal 32.0-35.[address] [facility] Comment on above: Performed By: #### L [id number] #### [facility] ([facility]) [address] [place] [address] Hematocrit (Bld) [Volume fraction] 35.9 % Low 36.0-48.[address] [facility] Comment on above: Performed By: #### L [id number] #### [facility] ([facility]) [address] [place] [address] Hemoglobin (Bld) [Mass/Vol] 11.8 g/dL Low 12.0-15.[address] [facility] Comment on above: Performed By: #### L [id number] #### [facility] ([facility]) [address] [place] [address] Immature granulocytes (Bld) [#/Vol] 0.03 10*3/uL Normal 0.00-0.[address] [facility] Comment on above: Performed By: #### L [id number] #### [facility] ([facility]) [address] [place] [address] Immature granulocytes/100 WBC (Bld) 0.3 % Normal 0.0-1.[address] [facility] Comment on above: Performed By: #### L [id number] #### [facility] ([facility]) [address] [place] [address] Lymphocytes (Bld) [#/Vol] 2.02 10*3/uL Normal 1.20-4.[address] [facility] Comment on above: Performed By: #### L [id number] #### [facility] ([facility]) [address] [place] [address] Lymphocytes/100 WBC (Bld) 23.5 % Normal 20.0-45.[address] [facility] Comment on above: Performed By: #### L [id number] #### [facility] ([facility]) [address] [place] [address] MCH (RBC) [Entitic mass] 27.2 pg Normal 27.0-33.[address] [facility] Comment on above: Performed By: #### L [id number] #### [facility] ([facility]) [address] [place] [address] MCV (RBC) [Entitic vol] 82.7 fL Normal 82.0-98.[address] [facility] Comment on above: Performed By: #### L [id number] #### [facility] ([facility]) [address] [place] [address] Monocytes (Bld) [#/Vol] 0.56 10*3/uL Normal 0.10-1.[address] [facility] Comment on above: Performed By: #### L [id number] #### [facility] ([facility]) [address] [place] [address] Monocytes/100 WBC (Bld) 6.5 % Normal 5.0-12.[address] [facility] Comment on above: Performed By: #### L [id number] #### [facility] ([facility]) [address] [place] [address] Neutrophils (Bld) [#/Vol] 5.74 10*3/uL Normal 1.60-7.[address] [facility] Comment on above: Performed By: #### L [id number] #### [facility] ([facility]) [address] [place] [address] Neutrophils/100 WBC (Bld) 67.0 % Normal 40.0-72.[address] [facility] Comment on above: Performed By: #### L [id number] #### [facility] ([facility]) [address] [place] [address] NRBC (PER 100 WBCS) BY AUTOMATED COUNT 0.0 % Normal [address] [facility] Comment on above: Performed By: #### L [id number] #### [facility] ([facility]) [address] [place] [address] PLATELETS (10*3/UL) IN BLOOD AUTOMATED COUNT 233 10*3/uL Normal 150-[address] [facility] Comment on above: Performed By: #### L [id number] #### [facility] ([facility]) [address] [place] [address] RBC (Bld) [#/Vol] 4.34 10*6/uL Normal 3.80-5.00 [facility] Comment on above: Performed By: #### L [id number] #### [facility] ([facility]) [address] [place] [address] WBC (Bld) [#/Vol] 8.58 10*3/uL Normal 4.00-10.60 [facility] Comment on above: Performed By: #### L [id number] #### [facility] ([facility]) [address] [place] [address] COMPREHENSIVE METABOLIC PANE Alec 06-29-2024 Albumin [Mass/Vol] 3.8 g/dL Normal 3.5-5.7 [facility] Comment on above: Performed By: #### L [id number] ####[facility] ([facility])[address] [place] [address] ALP [Catalytic activity/Vol] 64 U/L Normal 34-[address] [facility] Comment on above: Performed By: #### L [id number] ####[facility] ([facility])[address] [place] [address] ALT [Catalytic activity/Vol] 35 U/L Normal 7-[address] [facility] Comment on above: Performed By: #### L [id number] ####[facility] ([facility])[address] [place] [address] Anion gap [Moles/Vol] 12 mmol/L Normal 7-[address] [facility] Comment on above: Performed By: #### L [id number] ####[facility] ([facility])[address] [place] [address] AST [Catalytic activity/Vol] 21 U/L Normal 13-[address] [facility] Comment on above: Performed By: #### L [id number] ####[facility] ([facility])[address] [place] [address] Bilirubin [Mass/Vol] 0.4 mg/dL Normal 0.3-1.[address] [facility] Comment on above: Performed By: #### L [id number] ####[facility] ([facility])[address] [place] [address] Calcium [Mass/Vol] 8.5 mg/dL Low 8.6-10.3 [facility] Comment on above: Performed By: #### L [id number] ####[facility] ([facility])[address] [place] [address] Chloride [Moles/Vol] 112 mmol/L High 98-[address] [facility] Comment on above: Performed By: #### L [id number] ####[facility] ([facility])[address] [place] [address] CO2 [Moles/Vol] 22 mmol/L Normal 21-31 [facility] Comment on above: Performed By: #### L [id number] ####[facility] ([facility])[address] [place] [address] Creatinine [Mass/Vol] 0.92 mg/dL Normal 0.60-1.[address] [facility] Comment on above: Performed By: #### L [id number] ####[facility] ([facility])[address] [place] [address] GLOMERULAR FILTRATION RATE ML/MIN/1.73 SQ M.PREDICTED 71.3 mL/min/1.73m*2 Normal >60.[address] [facility] Comment on above: Result Comment: The [facility]???s estimated glomerular filtration rate (eGFR) will [...] of individuals. Performed By: #### L [id number] ####[facility] ([facility])[address] [place] [address] Glucose [Mass/Vol] 108 mg/dL High 70-100 [facility] Comment on above: Performed By: #### L [id number] ####[facility] ([facility])[address] [place] [address] Potassium [Moles/Vol] 3.7 mmol/L Normal 3.5-5.[address] [facility] Comment on above: Performed By: #### L [id number] ####[facility] ([facility])[address] [place] [place] [address] Protein [Mass/Vol] 6.1 g/dL Normal 6.0-8.3 [facility] Comment on above: Performed By: #### L [id number] ####[facility] ([facility])[address] [place] [place] [address] Sodium [Moles/Vol] 142 mmol/L Normal 136-145 [facility] Comment on above: Performed By: #### L [id number] ####[facility] [facility] ([facility])[address] [place] [address] Urea nitrogen [Mass/Vol] 11 mg/dL Normal 7-[address] [facility] Comment on above: Performed By: #### L [id number] ####[facility] ([facility])[address] [place] [address] UREA NITROGEN/CREATININE (MASS RATIO) IN SER/PLAS 12.[address] [facility] Comment on above: Performed By: #### L AB17 ####[facility] ([facility])[address] [place] [address] MAGNESIUMon 06-29-2024 Magnesium [Mass/Vol] 1.7 mg/dL Low 1.9-2.[address] [facility] Comment on above: Performed By: #### L [id number] #### [facility] ([facility]) [address] [place] [address] PHOSPHORUSon 06-29-2024 Magnesium [Mass/Vol] 2.9 mg/dL Normal 2.5-5.[address] [facility] Comment on above: Performed By: #### L [id number] ####[facility] ([facility])[address] [place] [address] PROTIME-INRon 06-29-2024 INR IN PPP BY COAGULATION ASSAY 0.99 Normal 0.90-1.[address] [facility] Comment on above: Result Comment: ACCC [...] #### [facility] ([facility]) [address] [place] [address] PROTHROMBIN TIME (PT) IN PPP BY COAGULATION ASSAY 13.1 Seconds Normal 12.3-14.[address] [facility] Comment on above: Performed By: #### L [id number] #### [facility] ([facility]) [address] [place] [address] TROPONIN Ion 06-29-2024 Troponin I.cardiac [Mass/Vol] 0.10 ng/mL High 0.00-0.[address] [facility] Comment on above: Performed By: #### L [id number] ####[facility] ([facility])[address] [place] [address] Outside Colonoscopyon 2022 Outside Colonoscopy [id number] 0CD:127 Normal [facility] Reminderson 11-27-2022 Reminders - From: Na Hayes LPN To: N - Clinical; Sent: 11/27/2022 12:46:10 EST Show up: 10/25/2032 07:00:00 EST Subject: colonoscopy recall Due Date/Time: 11/25/2032 07:00:00 EST Reminder/Recall Patient is due for screening colonoscopy 11/25/2032. Normal [facility] Lab Reportson 11-24-2022 Lab Reports [id number] 0CD:127 Normal [facility] Covid-19 PCR (CVDTB)on 10-24 SARS-CoV-2 (COVID-19) RNA BECK+probe Ql (Unsp spec) Not detected Normal NOT DETECTED [facility] Comment on above: Result Comment: This test is not yet approved or cleared by the [place] FDA. When there are no FDA-approved or cleared tests available, and other criteria are met, FDA can make tests available under an emergency access mechanism called an Emergency Use Authorization (EUA). The EUA for this test is supported by the [place] of Health and Human Service's (HHS's) declaration [...] #### C [facility] #### [facility] [address] [place] [address] Dr. Rich Welch Consent for Procedure/Surger yon 10-07-2022 Consent for Procedure/Surgery [id number] 0CD:127 Normal [facility] Ambulatory Visit Summaryon 1 12-06-2021 Ambulatory [...] for. Allergic conjunctivitis Anticoagulated Kidney stones Normal [facility] VC VENOUS REFLUX NINO LMTon 1 12-02-2021 VC VENOUS REFLUX NINO LMT Patient: ABY MADRIGAL Exam Date: 10/02/2022 : 1965 Gender:F Ordering : DR KENDRA MORAN . Admission #: [id number] Family : Order #: [id number] CLICK HERE TO VIEW EXAM RADIOLOGY REPORT [...] chronic thrombus visualized Compressibility: Normal Flow: Normal Conditioner Tumbler: Dist/med calf 3.3mm with 0s reflux. Tech Note: Incompetent SFJ and GSV. Patent varicose vein mid/med calf 2.9mm with 0s reflux. Patent varicose vein prox/post calf 3.8mm with 0s reflux. Patent varicose vein dist/med thigh 3.8mm with 2.0s reflux. CONCLUSION: 1. Mild right and nuia-ay-ssadgwpk left great saphenous vein venous insufficiency with dilatation 2. Left saphenous popliteal junction reflux 3. Mild left anterior accessory saphenous vein venous insufficiency without dilatation 4. Small bilateral incompetent varicose veins Dictated by: Adelia Lezama MD on 10/02/2022 at 13:36 Approved by: Adelia Lezama MD on 10/02/2022 at 13:52 Normal [facility] ECHOCARDIO M/2D COMPLETEon 1 11-30-2021 ECHOCARDIO M/2D COMPLETE Patient: ABY MADRIGAL Exam Date: 09/30/2022 : 1965 Gender:F Ordering : DR KENDRA MORAN . Admission #: [id number] Family : Order #: [id number] CLICK HERE TO VIEW EXAM ECHOCARDIOGRAM REPORT [...] M.D. on 09/30/2022 at 18:37 Normal [facility] BNPon 09-24-2022 Natriuretic peptide B (Bld) [Mass/Vol] 501.0 pg/mL Normal <=900.0 [facility] Comment on above: Performed By: #### C [facility] #### [facility] [address] [place] [address] Dr. Rich Welch CBC AUTO DIFFon 09-24-2022 BASO # 0.1 103/ul Normal 0.0-0.1 [facility] Comment on above: Performed By: #### C VDTBH #### [facility] [address] [place] [address] Dr. Rich Welch Basophils/100 WBC (Bld) 0.8 % Normal 0.2-2.0 [facility] Comment on above: Performed By: #### C VDTBH #### [facility] [address] [place] [address] Dr. Rich Welch EO # 0.3 103/ul Normal 0.0-0.7 [facility] Comment on above: Performed By: #### C VDTBH #### [facility] [address] [place] [address] Dr. Rich Welch Eosinophils/100 WBC (Bld) 3.4 % Normal 0.9-7.0 [facility] Comment on above: Performed By: #### C VDTBH #### [facility] [address] [place] [address] Dr. Rich Welch Erythrocyte distribution width (RBC) [Ratio] 13.3 % Normal 11.0-15.0 [facility] Comment on above: Performed By: #### C VDTBH #### [facility] [address] [place] [address] Dr. Rich Welch Hematocrit (Bld) [Volume fraction] 40.5 % Normal 36.0-48.0 [facility] Comment on above: Performed By: #### C VDTBH #### [facility] [address] [place] [address] Dr. Rich Welch Hemoglobin (Bld) [Mass/Vol] 13.1 g/dL Normal 12.0-16.0 [facility] Comment on above: Performed By: #### C VDTBH #### [facility] [address] [place] [address] Dr. Rich Welch IG # 0.02 10e3/ul Normal 0.00-0.03 [facility] Comment on above: Performed By: #### C VDTBH #### [facility] [address] [address] [address] Rich Welch IG % 0.3 % Normal 0.0-0.5 [facility] Comment on above: Performed By: #### C VDTBH #### [facility] [address] [address] [address] Rich Welch LYMPH # 2.7 103/ul Normal 1.2-3.8 [facility] Comment on above: Performed By: #### C VDTBH #### [facility] [address] [address] [address] Rich Welch Lymphocytes/100 WBC (Bld) 35.4 % Normal 20.5-60.0 [facility] Comment on above: Performed By: #### C VDTBH #### [facility] [address] [place] [address] Dr. Rich Welch MANUAL DIFF REQ NO Normal [facility] Comment on above: Performed By: #### C VDTBH #### [facility] [address] [place] [address] Dr. Rich Welch MCH (RBC) [Entitic mass] 28.2 pg Normal 26.7-34.0 [facility] Comment on above: Performed By: #### C VDTBH #### [facility] [address] [place] [address] Dr. Rich Welch MCHC (RBC) [Mass/Vol] 32.3 g/dL Normal 29.9-35.2 [facility] Comment on above: Performed By: #### C VDTBH #### [facility] [address] [place] [address] Dr. Rich Welch MCV (RBC) [Entitic vol] 87.3 fL Normal 81.0-99.0 [facility] Comment on above: Performed By: #### C VDTBH #### [facility] [address] [place] [address] Dr. Rich Welch MONO # 0.5 103/ul Normal 0.3-0.8 [facility] Comment on above: Performed By: #### C VDTB #### [facility] [address] [place] [address] Dr. Rich Welch Monocytes/100 WBC (Bld) 6.5 % Normal 1.7-12.0 [facility] Comment on above: Performed By: #### C VDTBH #### [facility] [address] [place] [address] Dr. Rich Welch NEUT # 4.1 103/ul Normal 1.4-6.5 [facility] Comment on above: Performed By: #### C VDTBH #### [facility] [address] [place] [address] Dr. Rich Welch Neutrophils/100 WBC (Bld) 53.6 % Normal 43.0-75.0 [facility] Comment on above: Performed By: #### C VDTBH #### [facility] [address] [place] [address] Dr. Rich Welch Platelet mean volume (Bld) [Entitic vol] 10.3 fL Normal 9.5-13.5 [facility] Comment on above: Performed By: #### C VDTBH #### [facility] [address] [place] [address] Dr. Rich Welch PLT 283 103/ul Normal 150-450 [facility] Comment on above: Performed By: #### C VDTBH #### [facility] [address] [place] [address] Dr. Rich Welch RBC 4.64 106/ul Normal 4.20-5.40 [facility] Comment on above: Performed By: #### C VDTBH #### [facility] [address] [place] [address] Dr. Rich Welch WBC 7.6 103/ul Normal 4.0-11.0 [facility] Comment on above: Performed By: #### C VDTBH #### [facility] [address] [place] [address] Dr. Rich Welch INSULINon 09-24-2022 Insulin 15.1 uIU/mL Normal 2.6-24.9 [facility] Comment on above: Performed By: #### C VDTBH #### [facility] [address] [address] [address] Rich Welch PROF 14(COMP METB)on 022 Albumin [Mass/Vol] 3.5 g/dL Normal 3.4-5.0 [facility] Comment on above: Performed By: #### C VDTBH #### [facility] [address] [address] [address] Rich Welch Albumin/Globulin [Mass ratio] 1.0 {ratio} Normal [facility] Comment on above: Performed By: #### C VDTBH #### [facility] [address] [place] [address] Dr. Rich Welch ALP [Catalytic activity/Vol] 91 U/L Normal 46-116 [facility] Comment on above: Performed By: #### C VDTBH #### [facility] [address] [place] [address] Dr. Rich Welch ALT [Catalytic activity/Vol] 47 U/L Normal 14-59 [facility] Comment on above: Performed By: #### C VDTBH #### [facility] [address] [place] [address] Dr. Rich Welch Anion gap [Moles/Vol] 11.7 mmol/L Normal [facility] Comment on above: Performed By: #### C VDTBH #### [facility] [address] [place] [address] Dr. Rich Welch AST [Catalytic activity/Vol] 24 U/L Normal 15-37 [facility] Comment on above: Performed By: #### C VDTBH #### [facility] [address] [place] [address] Dr. Rich Welch Bilirubin [Mass/Vol] 0.2 mg/dL Normal 0.2-1.0 [facility] Comment on above: Performed By: #### C VDTBH #### [facility] [address] [place] [address] Dr. Rich Welch Calcium [Mass/Vol] 8.9 mg/dL Normal 8.5-10.1 [facility] Comment on above: Performed By: #### C VDTBH #### [facility] [address] [address] [address] Rich Welch Chloride [Moles/Vol] 105 mmol/L Normal 98-107 [facility] Comment on above: Performed By: #### C VDTBH #### [facility] [address] [address] [address] Rich Welch CO2 [Moles/Vol] 28.1 mmol/L Normal 21.0-32.0 [facility] Comment on above: Performed By: #### C VDTBH #### [facility] [address] [address] [address] Rich Welch Creatinine [Mass/Vol] 1.13 mg/dL Critically high 0.55-1.02 [facility] Comment on above: Performed By: #### C VDTBH #### [facility] [address] [place] [address] Dr. Rich Welch EGFR-AF SIERRA LEONEAN 60 mL/min/1.73m2 Normal >=60 [facility] Comment on above: Performed By: #### C VDTBH #### [facility] [address] [address] [address] Rich Welch EGFR-NON AF SIERRA LEONEAN 49 mL/min/1.73m2 Critically low >=60 [facility] Comment on above: Performed By: #### C VDTBH #### [facility] [address] [address] [address] Rich Welch Globulin (S) [Mass/Vol] 3.5 g/dL Normal [facility] Comment on above: Performed By: #### C VDTBH #### [facility] [address] [address] [address] Rich Welch Glucose [Mass/Vol] 119 mg/dL Critically high 74-106 [facility] Comment on above: Performed By: #### C VDTBH #### [facility] [address] [place] [address] Dr. Rich Welch Potassium [Moles/Vol] 3.8 mmol/L Normal 3.5-5.1 [facility] Comment on above: Performed By: #### C VDTBH #### [facility] [address] [address] [address] Rich Welch Protein [Mass/Vol] 7.0 g/dL Normal 6.4-8.2 [facility] Comment on above: Performed By: #### C VDTBH #### [facility] [address] [address] [address] Rich Welch Sodium [Moles/Vol] 141 mmol/L Normal 136-145 [facility] Comment on above: Performed By: #### C VDTBH #### [facility] [address] [address] [address] Rich Welch Urea nitrogen [Mass/Vol] 16.0 mg/dL Normal 7.0-18.0 [facility] Comment on above: Performed By: #### C VDTBH #### [facility] [address] [address] [address] Rich Weclh Urea nitrogen/Creatinine [Mass ratio] 14.2 mg/mg Normal [facility] Comment on above: Performed By: #### C VDTBH #### [facility] [address] [address] [address] Rich Welch TROPONIN, HIGH SENSITIVITYon 09-24-2022 HSTROP 10.6 pg/mL Normal 4.0-51.3 [facility] Comment on above: Result Comment: CUT- OFF POINTS HAVE BEEN ESTABLISHED BASED ON THE FOURTH UNIVERSAL DEFINITIONS OF MYOCARDIAL INFARCTION. THE UPPER REFERENCE LIMIT (URL) OF TROPONIN, DEFINED THE 99TH PERCENTILE OF cTnI DISTRIBUTION IN A REFERENCE POPULATION, HAS BEEN CONFIRMED THE DECISION THRESHOLD FOR [place] DIAGNOSIS. Performed By: #### C VDTBH #### [facility] [address] [address] [address] Rich Welch XR CHEST 1 Von 09-24-2022 XR CHEST [...] UMM HUMPHRIES Date: 2022-09-24 04:08 Normal [facility] CBC AUTO DIFFon 09-23-2022 BASO # 0.1 103/ul Normal 0.0-0.1 [facility] Comment on above: Performed By: #### C BC #### [facility] [address] [address] [address] Rich Welch Basophils/100 WBC (Bld) 0.8 % Normal 0.2-2.0 [facility] Comment on above: Performed By: #### C BC #### [facility] [address] [address] [address] Rich Welch EO # 0.2 103/ul Normal 0.0-0.7 [facility] Comment on above: Performed By: #### C BC #### [facility] [address] [address] [address] Rich Welch Eosinophils/100 WBC (Bld) 3.5 % Normal 0.9-7.0 [facility] Comment on above: Performed By: #### C BC #### [facility] [address] [address] [address] Rich Welch Erythrocyte distribution width (RBC) [Ratio] 13.4 % Normal 11.0-15.0 [facility] Comment on above: Performed By: #### C BC #### [facility] [address] [address] [address] Rich Welch Hematocrit (Bld) [Volume fraction] 42.3 % Normal 36.0-48.0 [facility] Comment on above: Performed By: #### C BC #### [facility] [address] [place] [address] Dr. Rich Welch Hemoglobin (Bld) [Mass/Vol] 13.4 g/dL Normal 12.0-16.0 [facility] Comment on above: Performed By: #### C BC #### [facility] [address] [place] [address] Dr. Rich Welch IG # 0.03 10e3/ul Normal 0.00-0.03 [facility] Comment on above: Performed By: #### C BC #### [facility] [address] [place] [address] Dr. Rich Welch IG % 0.5 % Normal 0.0-0.5 [facility] Comment on above: Performed By: #### C BC #### [facility] [address] [place] [address] Dr. Rich Welch LYMPH # 2.9 103/ul Normal 1.2-3.8 [facility] Comment on above: Performed By: #### C BC #### [facility] [address] [place] [address] Dr. Rich Welch Lymphocytes/100 WBC (Bld) 44.0 % Normal 20.5-60.0 [facility] Comment on above: Performed By: #### C BC #### [facility] [address] [place] [address] Dr. Rich Welch MANUAL DIFF REQ NO Normal [facility] Comment on above: Performed By: #### C BC #### [facility] [address] [place] [address] Dr. Rich Welch MCH (RBC) [Entitic mass] 28.4 pg Normal 26.7-34.0 [facility] Comment on above: Performed By: #### C BC #### [facility] [address] [place] [address] Dr. Rich Welch MCHC (RBC) [Mass/Vol] 31.7 g/dL Normal 29.9-35.2 [facility] Comment on above: Performed By: #### C BC #### [facility] [address] [place] [address] Dr. Rich Welch MCV (RBC) [Entitic vol] 89.6 fL Normal 81.0-99.0 [facility] Comment on above: Performed By: #### C BC #### [facility] [address] [place] [address] Dr. Rich Welch MONO # 0.4 103/ul Normal 0.3-0.8 [facility] Comment on above: Performed By: #### C BC #### [facility] [address] [place] [address] Dr. Rich Welch Monocytes/100 WBC (Bld) 6.6 % Normal 1.7-12.0 [facility] Comment on above: Performed By: #### C BC #### [facility] [address] [place] [address] Dr. Rich Welch NEUT # 2.9 103/ul Normal 1.4-6.5 [facility] Comment on above: Performed By: #### C BC #### [facility] [address] [place] [address] Dr. Rich Welch Neutrophils/100 WBC (Bld) 44.6 % Normal 43.0-75.0 [facility] Comment on above: Performed By: #### C BC #### [facility] [address] [place] [address] Dr. Rich Welch Platelet mean volume (Bld) [Entitic vol] 11.0 fL Normal 9.5-13.5 [facility] Comment on above: Performed By: #### C BC #### [facility] [address] [place] [address] Dr. Rich Welch PLT 272 103/ul Normal 150-450 [facility] Comment on above: Performed By: #### C BC #### [facility] [address] [place] [address] Dr. Rich Welch RBC 4.72 106/ul Normal 4.20-5.40 [facility] Comment on above: Performed By: #### C BC #### [facility] [address] [place] [address] Dr. Rich Welch WBC 6.5 103/ul Normal 4.0-11.0 [facility] Comment on above: Performed By: #### C BC #### [facility] [address] [place] [address] Dr. Rich Welch FREE THYROXINE INDEX T7on FTI 2.16 Normal 1.30-4.50 [facility] Comment on above: Performed By: #### L IPID, TSH, T7, CMP #### [facility] [address] [address] [address] Rich Welch T3U 30.0 % Normal 30.0-39.0 [facility] Comment on above: Performed By: #### L IPID, TSH, T7, CMP #### [facility] [address] [address] [address] Rich Welch T4 [Mass/Vol] 7.20 ug/dL Normal 4.80-13.90 [facility] Comment on above: Performed By: #### L IPID, TSH, T7, CMP #### [facility] [address] [address] [address] Rich Welch GLYCOHEMOGLOBIN A1Con 2021 ADA RECOMMENDATION SEE BELOW Normal [facility] Comment on above: Result Comment: ADA RECOMMENDED LIMIT 4.0 - 6.0 ADA THERAPEUTIC TARGET < 7.0 ACTION SUGGESTED > 7.0 Performed By: #### A 1C #### [facility] [address] [place] [address] Dr. Rich Welch Glucose [Mass/Vol] 128 mg/dL Normal [facility] Comment on above: Performed By: #### A 1C #### [facility] [address] [place] [address] Dr. Rich Welch HbA1c (Bld) [Mass fraction] 6.1 % Normal 4.5-6.2 [facility] Comment on above: Performed By: #### A 1C #### [facility] [address] [place] [address] Dr. Rich Welch IRONon 09-23-2022 Iron [Mass/Vol] 64.0 ug/dL Normal 50.0-170.0 [facility] Comment on above: Performed By: #### C VDTBH #### [facility] [address] [place] [address] Dr. Rich Welch LIPID PROFILEon 09-23-2022 CHOL-HDL RATIO NORM SEE BELOW Normal [facility] Comment on above: Result Comment: 3.3 - 4.4 LOW RISK 4.4 - 7.1 AVERAGE RISK 7.1 - 11.0 MODERATE RISK >11.0 HIGH RISK Performed By: #### L IPID, TSH, T7, CMP #### [facility] [address] [address] [address] Rich Welch Cholesterol [Mass/Vol] 237 mg/dL Critically high <=200 [facility] Comment on above: Performed By: #### L IPID, TSH, T7, CMP #### [facility] [address] [address] [address] Rich Welch Cholesterol in HDL [Mass/Vol] 44 mg/dL Normal 40-60 [facility] Comment on above: Performed By: #### L IPID, TSH, T7, CMP #### [facility] [address] [address] [address] Rich Welch Cholesterol in LDL [Mass/Vol] 172.2 mg/dL Normal [facility] Comment on above: Performed By: #### L IPID, TSH, T7, CMP #### [facility] [address] [address] [address] Rich Welch Cholesterol.total/C holesterol in HDL [Mass ratio] 5.4 {ratio} Normal [facility] Comment on above: Performed By: #### L IPID, TSH, T7, CMP #### [facility] [address] [place] [address] Dr. Rich Welch HDL NORMAL > or = 60 mg/dl - LO W CARDIOVASCULAR RISK <40 mg/dl - HIGH CARDIOVASCULAR RISK Normal [facility] Comment on above: Performed By: #### L IPID, TSH, T7, CMP #### [facility] [address] [address] [address] Rich Welch LDL CALC NORMAL SEE BELOW Normal [facility] Comment on above: Result Comment: <100 mg/dl OPTIMAL 100 - 129 mg/dl NEAR OR ABOVE OPTIMAL 130 - 159 mg/dl BORDERLINE HIGH 160 - 189 mg/dl HIGH >190 mg/dl VERY HIGH Performed By: #### L IPID, TSH, T7, CMP #### [facility] [address] [address] [address] Rich Welch Triglyceride [Mass/Vol] 104 mg/dL Normal <=150 [facility] Comment on above: Performed By: #### L IPID, TSH, T7, CMP #### [facility] [address] [address] [address] Rich Welch VLDL CALC 20.8 mg/dL Normal [facility] Comment on above: Performed By: #### L IPID, TSH, T7, CMP #### [facility] [address] [address] [address] Rich Welch PROF 14(COMP METB)on 022 Albumin [Mass/Vol] 3.5 g/dL Normal 3.4-5.0 [facility] Comment on above: Performed By: #### L IPID, TSH, T7, CMP #### [facility] [address] [place] [address] Dr. Rich Welch Albumin/Globulin [Mass ratio] 0.9 {ratio} Normal [facility] Comment on above: Performed By: #### L IPID, TSH, T7, CMP #### [facility] [address] [address] [address] Rich Welch ALP [Catalytic activity/Vol] 93 U/L Normal 46-116 [facility] Comment on above: Performed By: #### L IPID, TSH, T7, CMP #### [facility] [address] [address] [address] Rich Welch ALT [Catalytic activity/Vol] 44 U/L Normal 14-59 [facility] Comment on above: Performed By: #### L IPID, TSH, T7, CMP #### [facility] [address] [address] [address] Rich Welch Anion gap [Moles/Vol] 8.5 mmol/L Normal [facility] Comment on above: Performed By: #### L IPID, TSH, T7, CMP #### [facility] [address] [address] [address] Rich Welch AST [Catalytic activity/Vol] 26 U/L Normal 15-37 [facility] Comment on above: Performed By: #### L IPID, TSH, T7, CMP #### [facility] [address] [address] [address] Rich Welch Bilirubin [Mass/Vol] 0.3 mg/dL Normal 0.2-1.0 [facility] Comment on above: Performed By: #### L IPID, TSH, T7, CMP #### [facility] [address] [place] [address] Dr. Rich Welch Calcium [Mass/Vol] 9.0 mg/dL Normal 8.5-10.1 [facility] Comment on above: Performed By: #### L IPID, TSH, T7, CMP #### [facility] [address] [place] [address] Dr. Rich Welch Chloride [Moles/Vol] 106 mmol/L Normal 98-107 [facility] Comment on above: Performed By: #### L IPID, TSH, T7, CMP #### [facility] [address] [place] [address] Dr. Rich Welch CO2 [Moles/Vol] 31.0 mmol/L Normal 21.0-32.0 [facility] Comment on above: Performed By: #### L IPID, TSH, T7, CMP #### [facility] [address] [place] [address] Dr. Rich Welch Creatinine [Mass/Vol] 1.11 mg/dL Critically high 0.55-1.02 [facility] Comment on above: Performed By: #### L IPID, TSH, T7, CMP #### [facility] [address] [place] [address] Dr. Rich Welch EGFR-AF SIERRA LEONEAN >60 Normal >=60 [facility] Comment on above: Performed By: #### L IPID, TSH, T7, CMP #### [facility] [address] [place] [address] Dr. Rich Welch EGFR-NON AF SIERRA LEONEAN 50 mL/min/1.73m2 Critically low >=60 [facility] Comment on above: Performed By: #### L IPID, TSH, T7, CMP #### [facility] [address] [place] [address] Dr. Rich Welch Globulin (S) [Mass/Vol] 3.7 g/dL Normal [facility] Comment on above: Performed By: #### L IPID, TSH, T7, CMP #### [facility] [address] [place] [address] Dr. Rich Welch Glucose [Mass/Vol] 121 mg/dL Critically high 74-106 T [facility] Comment on above: Performed By: #### L IPID, TSH, T7, CMP #### [facility] [address] [place] [address] Dr. Rich Welch Potassium [Moles/Vol] 4.5 mmol/L Normal 3.5-5.1 [facility] Comment on above: Performed By: #### L IPID, TSH, T7, CMP #### [facility] [address] [place] [address] Dr. Rich Welch Protein [Mass/Vol] 7.2 g/dL Normal 6.4-8.2 [facility] Comment on above: Performed By: #### L IPID, TSH, T7, CMP #### [facility] [address] [place] [address] Dr. Rich Welch Sodium [Moles/Vol] 141 mmol/L Normal 136-145 [facility] Comment on above: Performed By: #### L IPID, TSH, T7, CMP #### [facility] [address] [place] [address] Dr. Rich Welch Urea nitrogen [Mass/Vol] 16.0 mg/dL Normal 7.0-18.0 [facility] Comment on above: Performed By: #### L IPID, TSH, T7, CMP #### [facility] [address] [place] [address] Dr. Rich Welch Urea nitrogen/Creatinine [Mass ratio] 14.4 mg/mg Normal [facility] Comment on above: Performed By: #### L IPID, TSH, T7, CMP #### [facility] [address] [place] [address] Dr. Rich Welch TSHon 09-23-2022 TSH 3.915 uIU/mL Critically high 0.358-3.740 [facility] Comment on above: Performed By: #### L IPID, TSH, T7, CMP #### [facility] [address] [address] [address] Rich Welch Physician Referralon 022 Physician Referral [phone] [id number] Normal [facility] Vital Signs Date Time Vital Sign Value Performing Clinician Faci lity 06-01-2025 12:58-0400 Body height 162.6 cm Afsaneh Krotzer TANK STAVE ASSEMBLER-SUPPLIER RELATIONSHIP DIRECTOR Work Phone: [facility] [employer] [facility] 06-01-2025 12:58-0400 Body mass index (BMI) [Ratio] 33.27 kg/m2 Afsaneh Krotzer [employer] STAVE ASSEMBLER-SUPPLIER RELATIONSHIP DIRECTOR Work Phone: [facility] [employer] [facility] 06-01-2025 12:58-0400 Body weight 87.91 kg Afsaneh Krotzer [employer] STAVE ASSEMBLER-SUPPLIER RELATIONSHIP DIRECTOR Work Phone: [facility] 06-01-2025 12:58-0400 Diastolic blood pressure 78 mm[Hg] Afsaneh Krotzer [employer] STAVE ASSEMBLER-SUPPLIER RELATIONSHIP DIRECTOR Work Phone: [facility] [employer] 06-01-2025 12:58-0400 Systolic blood pressure 130 mm[Hg] Afsaneh Krotzer [employer] STAVE ASSEMBLER-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 RELATIONSHIP DIRECTOR Work Phone: [facility] 03-03-2025 11:02-0400 Body height 160.02 cm [facility] 03-03-2025 11:02-0400 Body mass index (BMI) [Ratio] 35.6 kg/m2 [facility] 03-03-2025 11:02-0400 Body temperature 97.8 [degF] [facility] 03-03-2025 11:02-0400 Body weight 91.34 kg [facility] 03-03-2025 11:02-0400 Diastolic blood pressure 69 mm[Hg] [facility] 03-03-2025 11:02-0400 Heart rate 82 /min [facility] 03-03-2025 11:02-0400 Respiratory rate 18 /min [facility] 03-03-2025 11:02-0400 SaO2% (BldA) [Mass fraction] 96 % [facility] 03-03-2025 11:02-0400 Systolic blood pressure 108 mm[Hg] [facility] 03-02-2025 09:18-0400 Body height 162.6 cm Farzana Ely [employer] STAVE ASSEMBLER-SUPPLIER RELATIONSHIP DIRECTOR Work Phone: [facility] 03-02-2025 09:18-0400 Body mass index (BMI) [Ratio] 34.81 kg/m2 Farzana Ely [employer] ST[employer] ASSEMBLER-SUPPLIER RELATIONSHIP DIRECTOR Work Phone: [facility] 03-02-2025 09:18-0400 Body weight 91.99 kg Fazrana Ely [employer] STAVE ASSEMBLER-SUPPLIER RELATIONSHIP DIRECTOR Work Phone: [facility] 03-02-2025 09:18-0400 Diastolic blood pressure 68 mm[Hg] Farzana Ely [employer] STAVE ASSEMBLER-SUPPLIER RELATIONSHIP DIRECTOR Work Phone: [facility] [employer] [facility] 03-02-2025 09:18-0400 Systolic blood pressure 118 mm[Hg] Farzana Ely [employer] STAVE ASSEMBLER-SUPPLIER RELATIONSHIP DIRECTOR Work Phone: [facility] 10-06-2022 15:36-0500 Blood Pressure Location Umm LANDON [facility] [place] 10-06-2022 15:36-0500 Diastolic blood pressure 86 mm[Hg] Umm LANDON [facility] [place] 10-06-2022 15:36-0500 Heart rate 72 /min Umm LANDON [facility] [place] 10-06-2022 15:36-0500 Respiratory rate 16 /min Umm LANDON [facility] [place] 10-06-2022 15:36-0500 Systolic blood pressure 126 mm[Hg] Umm LANDON [facility] [place] Encounters Encounter Date Encounter Type Care Provider Facility Start: 06-25-2025 End: 06-25-2025 ambulatory [facility] Start: 06-08-2025 Evaluation and manag ement of inpatient BIJAN LICEA [facility] Start: 06-08-2025 Evaluation and manag ement of inpatient JESUS WELCH [facility] Start: 06-07-2025 End: 06-08-2025 Evaluation and management of inpatient LORENZO BARR [facility] Start: 06-01-2025 End: 06-01-2025 Patient encounter procedure Afsaneh Jina Ayaz [employer]SEMBLER-SUPPLIER RELATIONSHIP DIRECTOR Work Phone: [facility] Work Phone: Start: 06-01-2025 End: 06-01-2025 Periodic preventive med est patient 40-64yrs Afsaneh Jacome [employer] ASSEMBLER-SUPPLIER RELATIONSHIP DIRECTOR Work Phone: [facility] Comment on above: Well woman exam with routine gynecological exam (Primary Dx) Start: 06-01-2025 End: 06-01-2025 ambulatory AFSANEH JACOME [facility] Start: 05-21-2025 End: 05-21-2025 ambulatory Kendra Moran MD Work Phone: [facility] Work Phone: Start: 05-21-2025 End: 05-21-2025 Patient encounter procedure Elie Jackson DO [facility] Work Phone: Start: 05-21-2025 End: 05-21-2025 Patient encounter procedure Elie Jackson DO [facility] Start: 05-21-2025 End: 05-21-2025 ambulatory Kendra Moran MD Work Phone: [facility] Work Phone: Start: 05-14-2025 End: 05-14-2025 ambulatory [facility] Start: 04-23-2025 End: 04-23-2025 ambulatory [facility] Start: 04-10-2025 End: 04-10-2025 ambulatory [facility] Start: 03-03-2025 End: 03-03-2025 ambulatory [facility] Work Phone: Start: 03-03-2025 End: 03-03-2025 Patient encounter procedure [facility] Work Phone: Start: 03-02-2025 End: 03-02-2025 ambulatory [facility] Start: 03-02-2025 End: 03-02-2025 Office outpatient [facility] ASSEMBLER-SUPPLIER RELATIONSHIP DIRECTOR Work Phone: [facility] Comment on above: Genitourinary syndro me of menopause (Primary Dx); PCB (post coital bleeding) Start: 02-26-2025 End: 02-26-2025 ambulatory [facility] Start: 02-07-2025 End: 02-07-2025 ambulatory [facility] Start: 01-09-2025 End: 01-09-2025 ambulatory [facility] Start: 01-02-2025 End: 01-02-2025 ambulatory [facility] Start: 10-26-2024 End: 10-26-2024 ambulatory [facility] Start: 10-03-2024 End: 10-03-2024 ambulatory [facility] Start: 09-04-2024 End: 09-04-2024 ambulatory [facility] Start: 08-29-2024 End: 08-29-2024 ambulatory [facility] Start: 08-04-2024 End: 08-04-2024 ambulatory [facility] Start: 07-20-2024 ambulatory RICHA VIRAMONTES [facility] Start: 07-20-2024 ambulatory KENDRA M [facility] Start: 07-18-2024 ambulatory [facility] Start: 07-18-2024 End: 07-18-2024 Emergency department patient visit HERMINIA JULIAN [facility] Start: 07-18-2024 End: 07-18-2024 ambulatory [facility] Start: 07-11-2024 Evaluation and manag ement of inpatient [facility] Start: 07-11-2024 Emergency department patient visit FEDERICA JACOBSON [facility] Start: 07-11-2024 End: 07-12-2024 Evaluation and management of inpatient JOSE BETANCUR [facility] Start: 07-10-2024 End: 07-10-2024 [facility] Start: 06-30-2024 Evaluation and manag ement of inpatient [facility] Start: 06-30-2024 Evaluation and manag ement of inpatient [facility] Start: 06-29-2024 End: 07-01-2024 Evaluation and management of inpatient KENDRA Ryland [facility] Start: 11-26-2022 Encounter for preprocedural laboratory examination DR UMM LANDON . [facility] Start: 11-25-2022 End: 11-26-2022 ambulatory Umm LANDON Facility:CD:[id number] Start: 11-20-2022 End: 11-21-[address] UMM LANDON . Facility:[facility] Start: 11-20-2022 End: 11-21-2022 Encounter for preprocedural laboratory examination DR UMM LANDON . Facility: Start: 10-06-2022 End: 10-07-2022 ambulatory Umm LANDON Facility:[facility] Start: 10-06-2022 End: 10-06-2022 Patient encounter procedure Umm LANDON General Surgery [facility] Start: 10-02-2022 End: 10-03-[address] KENDRA MORAN . Facility:[facility] Start: 09-30-2022 End: 10-01-[address] KENDRA MORAN . Facility:[facility] Start: 09-28-2022 Encounter for genera l adult medical examination without abnormal findings DR KENDRA MORAN . [facility] Start: 09-24-2022 End: 09-24-[address] SYBIL [...] Work Phone: Start: 10-26-2024 Follow-up visit Follow-up JEFFREYSAMIR LARRYSANDRA Start: 08-29-2019 Cystoscopic removal of ureteric stent Umm LANDON Bilateral tubal ligation Ad hael GEORGIEL Catheterization of l eft heart Umm JACQUESL Cholecystectomy Umm NILL Cystoscopic insertio n of ureteric stent Umm JACQUESL Dilation and curetta ge of uterus Umm JACQUESL Vaginal hysterectomy Umm JACQUESL Plan of Treatment Date Care Activity Detail Author Start: 06-01-2026 Adult BMI Screening Adult BMI Screening [facility] Start: 06-01-2026 Tobacco Screening Tobacco Screening [facility] Start: 03-02-2026 Adult BMI Screening Adult BMI Screening [facility] Start: 03-02-2026 Tobacco Screening Tobacco Screening [facility] Start: 07-23-2025 Influenza vaccination Influenza Vaccine [facility] Start: 06-01-2025 End: 06-01-2025 Patient encounter procedure 06/01/2025 1:00 PM EDT Office Visit [facility] [address] [place] [id number] Afsaneh Jacome [employer] STAVE ASSEMBLER-SUPPLIER RELATIONSHIP DIRECTOR [address] [place] [address] [facility] Start: 05-21-2025 X-ray of left knee, four views XR knee LT 4V* [facility] Start: 05-21-2025 X-ray of right knee, two views XR knee RT 2V [facility] Start: 05-21-2025 XR Knee - left 4 Views [facility] Start: 05-21-2025 XR Knee - right 2 Views [facility] Start: 07-23-2024 COVID-19 Vaccine ( season) COVID-19 Vaccine ( season) [facility] Start: 2014 Administration of varicella zoster vaccine Zoster (Shingles) Vaccine (1 of 2) [facility] Start: 1983 DTaP,Tdap and Td Vaccines (1 - Tdap) DTaP,Tdap and Td Vaccines (1 - Tdap) [facility] Start: 1982 Adult BMI Follow Up Plan Adult BMI Follow Up Plan [facility] Start: 1976 Depression Screening Depression Screening [facility] Immunizations Immunization Date Immunization Notes Care Provider Fa cility 11-07-2021 influenza virus vaccine, unspecified formulation Farzana Ely [employer] ST[employer] ASSEMBLER-SUPPLIER RELATIONSHIP DIRECTOR Work Phone: [facility] 04-14-2021 SARS-CoV-2 (COVID-19 ) mRNA BNT-162b2 vax Umm LANDON [facility] [place] 03-11-2021 SARS-CoV-2 (COVID-19 ) mRNA BNT-162b2 doris LANDON [facility] [place] NEGATED: Highlighted row has not occurred!10-07-2021 influenza, injectable, quadrivalent, preservative free [facility] Payers Date Payer Category Payer Self-pay 2022 Medicaid [id number] 2022 Medicaid [id number] 2019 Private Health Insurance [id number] 2016 Unknown [id number] 1964 Unknown [id number] 2.16.8 [id number] 1964 Unknown [id number] 2.16.8 [id number] 1964 Unknown [id number] 2.16.84 [id number] 1964 Unknown [id number] 2.16.84 [id number] 1964 Unknown [id number] 2.16.84 [id number] 1964 Unknown [id number] 2.16.84 [id number] 1964 Unknown [id number] 2.16.84 [id number] 1964 Unknown [id number] 2.16.84 [id number] 1964 Unknown [id number] 2.16.84 [id number] 1964 Unknown [id number] 2.16. [id number] 1964 Unknown [id number] 2.16. [id number] 1964 Unknown [id number] 2.16. [id number] 1964 Unknown [id number] 2.16.8 [id number] 1964 Unknown [id number] 2.16.8 [id number] 1959 Self-pay [id number] 1959 Unknown [id number] Unknown [id number] 2.16.8 [id number] Social History Date Type Detail Facility Start: 10-06-2022 End: 03-02-2025 Tobacco smoking status Ex-smoker (finding) [facility] [place] Tobacco smoking status Never [facility] [place] Start: 01-02-2021 End: 03-02-2025 Sex Assigned At Female [facility] Start: 10-07-2021 History of tobacco use Current smoke r [facility] History of tobacco use Cigarette Smoker P [facility] Start: 01-02-2021 End: 03-02-2025 Cigarettes smoked current (pack per day) - Reported 1 [facility] Start: 03-02-2025 Tobacco use and exposure Smokeless tobacco non-user [facility] Start: 03-02-2025 End: 06-01-2025 Alcoholic beverage intake Ex-drinker (finding) [facility] Start: 1965 Sex assigned at Not on file P [facility] Start: 06-27-2015 End: 03-03-2025 Sex Female (finding) [facility] Start: 1965 Sex Assigned At Female F [facility] Start: 10-07-2021 Tobacco smoking stat us PRIS Smokes tobacco daily (finding) [facility] Functional Status Date Assessment Result Facility 10-06-2022 Functional Status N/A [facility] [place] Clinical Notes 11-20-2022 to 06-25-2025 Afsaneh Jacome, TANK STAVE ASSEMBLER-SUPPLIER RELATIONSHIP DIRECTOR - 06/01/2025 1:00 PM EDT Note Date & Type Note Facility 06-25-2025 Note [facility] Subjective Aby Madrigal is a 60 y.o. year old female patient being seen for follow up PCI. Still having a little chest pain, but denies SOB. Says [...] infarction) (CMS/HCC) Hypokalemia Coronary artery disease involving [place] coronary artery of [place] heart without angina pectoris Depression, major, severe [...] and V6. She was then admitted to [facility] on 07/11/2024 with NSTEMI. She underwent [...] on 01/31/2025 she was evaluated at the [facility] because of chest pain. Workup was negative. She was discharged home. She is also following with endocrinology regarding adrenal adenoma. She underwent bilateral adrenal vein sampling and was seen in follow-up with endocrinology who did not favor adrenalectomy and favored medical therapy. She was given spironolactone. At visit of 04/23/2025 I asked her to take it 25 mg once daily. I saw her on 05/14/2025 after [...] the time. It happens on and off. Otherwise no other type of chest pain. No shortness of breath. She has been dizzy and lightheaded when she stands up. Her blood pressure is borderline on standing. Review of Systems Cardiovascular: Positive for chest pain. Neurological: Positive for dizziness (upon standing), headaches and light-headedness. All other systems reviewed and are negative. Objective (more content not included)... [facility] 06-08-2025 Note Attestation with edits by Bijan Licea MD at 06/08/2025 7:47 PM By using the attestations below, the signing clinician agrees that I have read and verify that the documentation has been personally reviewed by me and ensure that the documentation accurately reflects the encounter. GC: I personally saw this patient on the day of the encounter, performed the zuniga portion(s) of the service and participated in the management and confirm the resident's/ fellow's Dr Quezada documentation. Please note there may be an additional personal documentation from me. Bijan Licea MD, [facility] Cardiology Progress Note Subjective Subjective: Aby Madrigal is a 59 y.o. female Patient transferred to [facility] from [facility]. She presented to outside hospital with 1 day history of nonradiating intermittent anterior chest pain. The patient had Lexiscan stress test on 06/05 and she was informed that the stress test is positive and showed ST changes in inferior leads. No recurrence of chest pain since then. At my encounter she was sitting comfortably on bed, denies any chest pain, shortness of breath, nausea vomiting and headache and lightheadedness. Objective Labs reviewed no electrolyte imbalance, she underwent angiography and PCI of proximal RCA yesterday Current Medications[1] Objective: Patient Vitals for the past 24 hrs: BP Temp Temp src Pulse Resp SpO2 Weight 06/08/25 1201 (!) 111/48 36.1 ???C (96.9 ???F) Temporal -- -- -- -- 06/08/25 1200 -- -- -- 69 19 97 % -- 06/08/25 0815 145/50 36.2 ???C (97.1 ???F) Temporal -- 14 -- -- 06/08/25 0400 138/52 36.5 ???C (97.7 ???F) Temporal 54 -- 97 % 89.6 kg (197 lb 8.5 oz) 06/08/25 0000 (!) 127/39 -- -- (!) 48 15 97 % -- 06/07/25 2006 (!) 137/47 36.4 ???C (97.5 ???F) -- 51 12 100 % -- 06/07/25 1845 141/59 -- -- 60 17 98 % -- 06/07/25 1815 136/66 36.6 ???C (97.8 ???F) Temporal 56 14 100 % -- 06/07/25 1801 -- 36.3 ???C (97.3 ???F) Temporal -- -- -- -- 06/07/25 1800 143/50 -- -- (!) 49 15 100 % -- 06/07/25 1745 142/76 36.2 ???C (97.2 ???F) Temporal 50 18 98 % -- 06/07/25 1721 156/61 36.4 ???C (97.5 ???F) Temporal 60 16 100 % -- 06/07/25 1710 160/62 -- -- 59 18 100 % -- 06/07/25 1600 149/65 -- -- 52 20 96 % -- Physical Examination: Physical Exam Vitals and nursing note reviewed. Constitutional: General: She is not in acute distress. Appearance: Normal appearance. She is normal weight. She is not ill-appearing. HENT: Mouth/Throat: Mouth: Mucous membranes are moist. Eyes: Conjunctiva/sclera: Conjunctivae normal. Cardiovascular: Pulses: Normal pulses. Heart sounds: Normal heart sounds. Pulmonary: Effort: Pulmonary effort is normal. Breath sounds: Normal breath sounds. Abdominal: Palpations: Abdomen is soft. Musculoskeletal: Right lower leg: No edema. Left lower leg: No edema. Skin: General: Skin is warm. Neurological: Mental Status: She is alert and oriented to person, place, and time. Psychiatric: Behavior: Behavior normal. Relevant Lab Results Encounter Date: 06/07/25 ECG 12 lead Result Value Ventricular Rate 53 Atrial Rate 53 KS Interval 164 QRS DURATION 90 QT Interval 432 QTC CALCULATION(BAZETT) 405 P Conway 41 R-Conway -5 T Wave Conway 97 Impression Sinus bradycardia Left ventricular hypertrophy ( R in aVL , Orr product ) with Repolarization Abnormality Inferior infarct (cited on or before 18-JUL-2024) T wave abnormality, consider lateral ischemia Abnormal ECG When compared with ECG of 18-JUL-2024 09:13, No significant change was found Confirmed by Errol TURCIOS, L.S. (2) on 06/08/2025 11:55:38 AM Lab Results Component Value Date TROPONINI 0.01 07/12/2024 No nuclear medicine results found for the past 12 months Relevant Imaging Results Transthoracic echo (TTE) complete [facility] Heart Station [address] [id number] [phone] (fax) Echocardiogram-[facility] Name: ABY MADRIGAL Study Date: 06/08/2025 08:50 AM B/P: 64 mmHg/197 mmHg HR: 49 bpm Date of : 1965 Location: [facility] Height: 64 in. Age: 59 year(s) Patient Room: 5120 Weight: 197 lb. Gender: Female Patient Status: InPt BSA: 1.94 m2 Indication: Chest Pain, s/p stent Examination: Echocardiogram (Complete), Lumason Contrast Image Quality: Fair Patient Consent: Procedure explained to patient Exam Details Contrast: I.V. dose of Lumason Conclusions Left Ventricle: Increased LVOT velocity in the mid ventricle at rest 2.39m/s with a gradient of 23mmHg increasing to 2.64m/s and 28mmHg with valsalva. May be due to hyperdynamic state or chordal apparataus. The left ventricle is normal size. Global left ventricular systolic function is hyperdy (more content not included)... [facility] 06-08-2025 Note Hospital Medicine Discharge Summary Final Discharge Diagnosis: Atypical chest pain Positive stress test Coronary artery disease S/p L cardiac catheterization 06/07 Status post RCA stent placement 06/07 Hypertrophic septum Hyperaldosteronism Essential hypertension Sleep apnea Obesity class I, BMI 33.89 Admission Diagnosis: NSTEMI (non-ST elevated myocardial infarction) (CMS/[facility]) [I21.4] Hospital course: Ms. Aby Madrigal is an 59 y.o. female admitted as a transfer from [facility] where she presented with 1 day history of intermittent chest pain anterior chest nonradiating no associated diaphoresis nausea or vomiting dyspnea.. Patient said that she had a stress test done a day back and was told it to be abnormal and per ER physician at [place] the post exercise test showed ST changes in inferior leads she has history of coronary artery disease and underwent left heart cath on July 19, 2024 requiring PCI and blood eluding stent to LAD primary aldosterone is him and is on Aldactone. She has history of tobacco dependence which she quit several years back she had moderate disease of the left anterior descending coronary artery and mild to moderate proximal calcific disease of the right coronary artery she also was told to have renal artery stenosis and has history of primary aldosteronism and is on Aldactone follows endocrinology her serum cortisol on December of this year was 3.6 aldosterone was 7.3. She was admitted to hospitalist service for further evaluation. Patient was evaluated by cardiology team. Patient underwent cardiac catheterization on 06/07 withSuccessful stenting of the proximal RCA from 70% with a Megatron drug-eluting stent. TTE showed Increased LVOT velocity in the mid ventricle. Otherwise, it showed hyperdynamic LV. Cardiology was agreeable to discharging the patient. Patient was advised to take aspirin and plavix religiously or that it could cause an [place] due to stent rethrombosis. Patient is discharged in stable condition to home on 06/08/2025. Surgical, Invasive or Diagnostic Procedures Done During Admission: Cardiac Cath Consultations During Admission: Cardiology Dear MD Lidia, Aby is advised to follow up with you within 1-2 weeks. Items to follow up in ambulatory setting: None Follow-up with: Cardiology Scheduled appointments: Future Appointments Date Time Provider Department Center 06/25/2025 3:30 PM Gomez Spence MD [facility] 07/24/2025 1:00 PM Feng Christie MD [facility] END[facility]CR [facility] Your medication list CHANGE how you take these medications Instructions Last Dose Given Next Dose Due carvedilol 12.5 mg tablet Commonly known as: Coreg What changed: medication strength how much to take how to take this when to take this additional instructions Take 2 tablets (25 mg) by mouth two times daily for 197 doses. isosorbide mononitrate ER 60 mg 24 hr tablet Commonly known as: Imdur Start taking on: June 09, 2025 What changed: when to take this Take 1 tablet (60 mg) by mouth in the morning for 97 doses. Do not crush or chew. Protonix 40 mg EC tablet Generic drug: pantoprazole What changed: when to take this CONTINUE taking these medications Instructions Last Dose Given Next Dose Due aspirin 81 mg EC tablet Take 1 tablet (81 mg) by mouth in the morning. clopidogrel 75 mg tablet Commonly known as: Plavix Take 1 tablet (75 mg) by mouth in the morning. hydrALAZINE 50 mg tablet Commonly known as: Apresoline Invokana 100 mg Generic drug: canagliflozin LORazepam 1 mg tablet Commonly known as: Ativan magnesium oxide 400 mg (241.3 mg magnesium) tablet Commonly known as: Mag-Ox QUEtiapine 25 mg tablet Commonly known as: SEROquel QUEtiapine 100 mg tablet Commonly known as: SEROquel rosuvastatin 40 mg tablet Commonly known as: Crestor Take 1 tablet (40 mg) by mouth in the morning. spironolactone 50 mg tablet Commonly known as: Aldactone Take 0.5 tablets (25 mg) by mouth in the morning. Where to Get Your Medications These medications were sent to [facility] - [place], [place] - [address], [facility] [address] aspirin 81 mg EC tablet carvedilol 12.5 mg tablet clopidogrel 75 mg tablet isosorbide mononitrate ER 60 mg 24 hr tablet Aby is allergic to lisinopril, norvasc [amlodipine], and xanax [alprazolam]. Disposition: Home or Self Care () Discharge Condition: Stable Code Status: Full Code Diagnostic Results Hematology: Results from last 7 days Lab Units 06/08/25 0502 06/07/25 1133 WBC AUTO 10*3/uL 5.53 4.78 HEMOGLOBIN g/dL 11.2* 11.5* HEMATOCRIT % 35.2* 36.6 MCV fL 84.6 84.5 PLATELETS AUTO 10*3/uL 172 186 Chemistry: Results from last 7 days Lab Units 06/08/25 0502 06/07/25 1133 SODIUM mmol/L 140 142 POTASSIUM mmol/L 3.7 3.8 CHLORIDE mmol/L 111* 1 (more content not included)... [facility] 06-07-2025 Note Patient: Aby antony Procedure Information Date/Time: 06/07/25 1255 Procedure: Coronary angiography (Bilateral) Location: [facility] DETAILER FURNITURE 2 BIPLANE / [facility] (Cath) Providers: Omar Cotto MD Clinical information reviewed: Allergies Meds Physical Exam Airway Mallampati: III TM distance: >3 FB Neck ROM: full Cardiovascular Rhythm: regular Rate: normal Dental Pulmonary Breath sounds clear to auscultation Neurological Abdominal Abdomen: soft Anesthesia Plan ASA 3 (Moderate sedation) Anesthetic plan and risks discussed with patient. Use of blood products discussed with patient who. Additional Equipment Requests [facility] 06-07-2025 Note Optimize antihyperte nsives CODE STATUS full code [facility] 06-07-2025 Note - Continue protonix [place] [facility] 06-07-2025 Note - Pain control - blood pressure control: Optimize Aldactone, Farxiga, Hydralazine, Coreg, - Trend troponin - continue ASA Plavix Crestor currently on heparin - Cardiology consulted, appreciate recommendations - Obtain Echo - Prior Echo 05/10: EF: 75%>, left ventricular hypertrophy w/ significant hypertrophy of the basal septum up to 1.6 cm, Hyperdynamic left ventricular systolic fxn w/ increased intracavitary gradients up to 34 mmHg w/ valsalva [facility] 06-07-2025 Note - Continue Aldactone - December of this year: Cortisol: 3.6 and Aldosterone: 7.[address] [facility] 06-07-2025 Note - Continue BG checks - Continue SSI while hospitalized - Continue Farxiga - Consider obtaining A1c [facility] 06-07-2025 Note As the teaching angeles garner, I have personally performed or re-performed the history of present illness, physical exam and medical decision-making activities of the encounter and verified the medical student's documentation. I made pertinent changes as necessary to ensure accurate documentation. There may be additional comments below. Additional Comments: Patient seen and examined in the morning. She was not in any acute distress. Cardiology took to cath and there was significant blockage and stent was placed. Jesus Welch MD Hospitalist [facility] Medicine Daily Progress Note - 06/07/2025 10:02 AM; Room: [address] [place] [address] Admission: 06/07/2025 2:55 AM; Length of stay: 0 days THE HOSPITALIST TEAM PREFERS TO USE [employer] CHAT FOR NON-URGENT COMMUNICATION 7AM-7PM. IF I DO NOT RESPOND WITHIN 20 MINUTES OR URGENT MATTERS, PLEASE CALL THROUGH THE RESEARCH AND DEVELOPMENT SCIENTIST. FROM 7PM-7AM, PLEASE PAGE [phone](COVR). Code Status: Full Code Barriers to Discharge: NSTEMI Expected Discharge Date: TBD Discharge Destination: home or SNF Overview Patient is seen for evaluation and management of NSTEMI versus Unstable Angina. Subjective Pt is resting comfortably in bed this morning on RA. She reports no more ongoing chest pain or SOB. She was undergoing a stress test when she was told to go to the hospital. She went to [facility] and was transferred to [facility]. She is anxious to see the car wrecker, she has seen Dr. Spence in the past. She has no other problems or complaints at this time. Physical Exam Visit Vitals BP 154/75 Pulse 65 Temp 36.5 ???C (97.7 ???F) (Axillary) Resp 16 No intake or output data in the 24 hours ending 06/07/25 1002 Physical Exam Constitutional: Appearance: She is obese. HENT: Head: Normocephalic and atraumatic. Mouth/Throat: Mouth: Mucous membranes are moist. Pharynx: Oropharynx is clear. Eyes: General: No scleral icterus. Extraocular Movements: Extraocular movements intact. Cardiovascular: Rate and Rhythm: Normal rate. Heart sounds: Normal heart sounds. Pulmonary: Effort: Pulmonary effort is normal. Breath sounds: Normal breath sounds. Abdominal: General: Abdomen is flat. There is no distension. Palpations: Abdomen is soft. Tenderness: There is no abdominal tenderness. Musculoskeletal: General: No swelling. Skin: General: Skin is warm and dry. Neurological: Mental Status: She is alert and oriented to person, place, and time. Mental status is at baseline. Psychiatric: Mood and Affect: Mood normal. Judgment: Judgment normal. Estimated body mass index is 34.27 kg/m??? as calculated from the following: Height as of this encounter: 1.626 m (5' 4.02 ). Weight as of this encounter: 90.6 kg (199 lb 11.8 oz). Assessment and Plan Assessment & Plan NSTEMI (non-ST elevated myocardial infarction) ([facility]) - Pain control - blood pressure control: Optimize Aldactone, Farxiga, Hydralazine, Coreg, - Trend troponin - continue ASA Plavix Crestor currently on heparin - Cardiology consulted, appreciate recommendations - Obtain Echo - Prior Echo 05/10: EF: 75%>, left ventricular hypertrophy w/ significant hypertrophy of the basal septum up to 1.6 cm, Hyperdynamic left ventricular systolic fxn w/ increased intracavitary gradients up to 34 mmHg w/ valsalva Gastroesophageal reflux disease without esophagitis - Continue protonix Type 2 diabetes mellitus without complication, without long-term current use of insulin ([facility]) - Continue BG checks - Continue SSI while hospitalized - Continue Farxiga - Consider obtaining A1c Primary aldosteronism - Continue Aldactone - December of this year: Cortisol: 3.6 and Aldosterone: 7.3 Secondary hypertension Optimize antihypertensives CODE STATUS full code Nutrition Screen: Malnutrition Attestation: No dietitian assessment is available at this time. VTE Prophylaxis: IV heparin Scheduled Meds aspirin, 81 mg, oral, Daily carvedilol, 37.5 mg, oral, BID clopidogrel, 75 mg, oral, Daily dapagliflozin propanediol, 10 mg, oral, Daily hydrALAZINE, 50 mg, oral, BID insulin lispro, 0-10 Units, subcutaneous, TID with meals And insulin lispro, 0-8 Units, subcutaneous, Nightly isosorbide mononitrate ER, 60 mg, oral, Daily LORazepam, 1 mg, oral, TID magnesium oxide, 400 mg, oral, Daily pantoprazole, 40 mg, oral, Daily QUEtiapine, 100 mg, oral, Daily rosuvastatin, 40 mg, oral, Daily spironolactone, 25 mg, oral, Daily heparin, 0-28 Units/kg/hr, Last Rate: 15 Units/kg/hr (06/07/25 0612) Pertinent Investigations Hematology: Results from last 7 days Lab Units 06/07/25 0452 PLATELETS AUTO 10*3/uL 181 Chemistry: No lab exists for component: AFIO2 , APHT , APCOT , APOT , ATCO2 , CK , ALB , IBILI Results from last 7 days Lab Units 06/07/25 0735 POCT GLUCOSE mg/dL 97 Historical Values: (Includes values prior to this admission) Lab Results Com (more content not included)... [facility] 06-07-2025 Note As above [facility] 06-07-2025 Note Pain control blood p ressure control cycle troponin continue aspirin Plavix statin currently on heparin cardiology to see patient [facility] 06-07-2025 Note Insulin Farxiga blood sugar [facility] 06-07-2025 Note PPI [facility] 06-07-2025 Note Optimize antihyperte nsives CODE STATUS full code [facility] 06-07-2025 Note Hospital Medicine History and Physical 06/07/2025 4:01 AM THE HOSPITALIST TEAM PREFERS TO USE [employer] CHAT FOR NON-URGENT COMMUNICATION 7AM-7PM. IF I DO NOT RESPOND WITHIN 20 MINUTES OR URGENT MATTERS, PLEASE CALL THROUGH THE RESEARCH AND DEVELOPMENT SCIENTIST. FROM 7PM-7AM, PLEASE PAGE [phone](COVR). Chief Complaint No chief complaint on file. History of Present Illness Aby Madrigal is an 59 y.o. female admitted as a transfer from [facility] where she presented with 1 day history of intermittent chest pain anterior chest nonradiating no associated diaphoresis nausea or vomiting dyspnea.. Patient said that she had a stress test done a day back and was told it to be abnormal and per ER physician at [place] the post exercise test showed ST changes in inferior leads she has history of coronary artery disease and underwent left heart cath on July 19, 2024 requiring PCI and blood eluding stent to LAD primary aldosterone is him and is on Aldactone. She has history of tobacco dependence which she quit several years back she had moderate disease of the left anterior descending coronary artery and mild to moderate proximal calcific disease of the right coronary artery she also was told to have renal artery stenosis and has history of primary aldosteronism and is on Aldactone follows endocrinology her serum cortisol on December of this year was 3.6 aldosterone was 7.3 Review of System and Physical Exam Physical Exam Vitals reviewed. Constitutional: Appearance: Normal appearance. HENT: Head: Normocephalic and atraumatic. Nose: Nose normal. Mouth/Throat: Mouth: Mucous membranes are moist. Pharynx: Oropharynx is clear. Eyes: Extraocular Movements: Extraocular movements intact. Conjunctiva/sclera: Conjunctivae normal. Pupils: Pupils are equal, round, and reactive to light. Cardiovascular: Rate and Rhythm: Normal rate and regular rhythm. Heart sounds: Murmur heard. Pulmonary: Effort: Pulmonary effort is normal. Breath sounds: Normal breath sounds. Abdominal: General: Abdomen is flat. Bowel sounds are normal. Palpations: Abdomen is soft. Musculoskeletal: General: Normal range of motion. Cervical back: Normal range of motion and neck supple. Skin: General: Skin is warm and dry. Capillary Refill: Capillary refill takes 2 to 3 seconds. Neurological: General: No focal deficit present. Mental Status: She is alert. Mental status is at baseline. Psychiatric: Mood and Affect: Mood normal. Behavior: Behavior normal. Review of Systems Constitutional: Positive for activity change and fatigue. HENT: Negative. Eyes: Negative. Respiratory: Negative. Cardiovascular: Positive for chest pain. Negative for leg swelling. Gastrointestinal: Negative. Endocrine: Negative. Genitourinary: Negative. Musculoskeletal: Negative. Allergic/Immunologic: Negative. Neurological: Negative. Hematological: Negative. Psychiatric/Behavioral: Negative. Assessment and Plan Assessment & Plan NSTEMI (non-ST elevated myocardial infarction) ([facility]/HCC) Pain control blood pressure control cycle troponin continue aspirin Plavix statin currently on heparin cardiology to see patient Gastroesophageal reflux disease without esophagitis PPI Type 2 diabetes mellitus without complication, without long-term current use of insulin ([facility]) Insulin Farxiga blood sugar Primary aldosteronism As above Secondary hypertension Optimize antihypertensives CODE STATUS full code VTE Prophylaxis: IV heparin ----- Focus of this inpatient stay will remain on problems that need acute care setting for care. We will review available studies and will order additional labs, imaging and other studies as appropriate. As needed medicines are ordered as appropriate. VTE Prophylaxis will be ordered as appropriate. Please see above for management plan for individual hospital problems. Home medications are reviewed and will be continued as appropriate. Patient will be continued to be followed during this hospital stay by a member of [facility] Medicine. Past Medical History Medical History[1] Past Surgical History Surgical History[2] Social History Social History Socioeconomic History Marital status: Spouse name: Not on file Number of children: Not on file Years of education: Not on file Highest education level: Not on file Occupational History Not on file Tobacco Use Smoking status: Former Current packs/day: 0.00 Average packs/day: 1 pack/day for 45.0 years (45.0 ttl pk-yrs) Types: Cigarettes Start date: 1976 Quit date: 2021 Years since quittin.5 Smokeless tobacco: Never Vaping Use Vaping status: Never Used Substance and Sexual Activity Alcohol use: Not Currently Comment: Used to drink a lot on the weekend Drug use: Never Sexual activity: Defer Other Topics Concern Not on file Social History Narrative Not on file Social Drivers o (more content not included)... [facility] 06-01-2025 History of Present illness Narrative Aby Madrigal is a pleasant 59 y.o. 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 Hysterectomy: yes - [...] yes Last mammogram: 2 years ago at [facility], Dr. Moran orders them Dexa Scan: n/a Colonoscopy:1-2 years ago OB History 3 Para 2 Term AB 1 Living 2 SAB 1 IAB Ectopic Multiple Live Births 2 Past Medical History: Diagnosis Date Anxiety GERD (gastroesophageal reflux disease) Heart attack ([facility]-H[facility]) 06/29/2024 Past Surgical History: Procedure Laterality Date [...] provided. All questions answered. 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 ELVIN Singletary 06/01/25 1329 documented in this encounter [facility] [employer] [facility] 05-14-2025 Note [place] Cardiology - [facility] Subjective Aby Madrigal is a 59 y.o. year old female patient being seen for a follow up s/p [facility] ER visit. Patient states she was [...] infarction) (CMS/HCC) Hypokalemia Coronary artery disease involving [place] coronary artery of [place] heart without angina pectoris Depression, major, severe [...] and V6. She was then admitted to [facility] on 07/11/2024 with NSTEMI. She underwent [...] on 01/31/2025 she was evaluated at the [facility] because of chest pain. Workup was negative. [...] Head: Normocephalic and (more content not included)... [facility] 04-23-2025 Note [place] Cardiology - [facility] Subjective Aby Madrigal is a 59 [...] infarction) (CMS/HCC) Hypokalemia Coronary artery disease involving [place] coronary artery of [place] heart without angina pectoris Depression, major, severe [...] and V6. She was then admitted to [facility] on 07/11/2024 with NSTEMI. She underwent [...] on 01/31/2025 she was evaluated at the [facility] because of chest pain. Workup was negative. [...] or rales. Chest: (more content not included)... [facility] 04-10-2025 Note REASON FOR VISIT + [...] metoprolol - Jun 2019 CT A/P in [place], [place] performed for abd pain, incidentally detected [...] Hypertension Obstructive sleep apnea Panic attacks Stroke ([facility]/HCC) Past Surgical History: Procedure Laterality Date CARDIAC [...] EC tablet, [place] (more content not included)... [facility] 03-03-2025 Evaluation note Diagnosis Onset Date Resolution Viral URI acute March 03 10:35am Strain of left knee acute May 21, 2025 2:00pm [facility] Work Phone: [phone]) 372-963004-11-2025 History of Present illness Narrative* Farzana Ely, TANK STAVE ASSEMBLER-SUPPLIER RELATIONSHIP DIRECTOR - 03/02/2025 8:45 AM EDT Aby Madrigal [...] Anxiety GERD (gastroesophageal reflux disease) Heart attack ([facility]) 06/29/2024 Hypertension MEDS Current Outpatient Medications Medication [...] ELVIN Ramos 03/02/25 1132 documented in [facility] [id number] Instructions* Patient Instructions* ELVIN Ramos - 03/02/2025 [...] urethra, clitoris, and labia. documented in this encounterNorth Country HospitalExterity [id number] NoteUT Cardiology - [facility] Subjective Aby Madrigal is a 59 [...] infarction) (CMS/HCC) Hypokalemia Coronary artery disease involving [place] coronary artery of [place] heart without angina pectoris Depression, major, severe [...] and V6. She was then admitted to [facility] on 07/11/2024 with NSTEMI. She underwent [...] on 01/31/2025 she was evaluated at the [facility] because of chest pain. Workup was negative. [...] sounds: Normal heart so (more content not included)...[facility]03-19-2025 NoteIR VENOGRAPHY VENOUS SAMPLE Procedure: Bilateral [...] was achieved using a micropuncture set. A Oja.lason wire was advanced into the IVC and a 5 Turkmen vascular sheathwas placed. Selective catheterization of the right adrenal vein was performed using C catheter and samples obtained. There was another [...] by Gage Núñez MD on 02/07/2025 10:05 [facility] 01-18-2025 NotePatient contacted office, states she called [facility] Interventional Radiology to schedule the referral Dr. Christie had sent over, however no referral was received. Motor Overhauler faxed referral and recent visit note to [phone].[facility]02-18-2025 NoteREASON FOR VISIT + HPI: Aby [...] metoprolol - Jun 2019 CT A/P in [place], [place] performed for abd pain, incidentally detected [...] ER (Imdur) 60 mg (more content not included)...[facility]02-03-2025 NoteWriter spoke with Tram at [facility] regarding this patient. Tram said the way the order was placed through the system they just didn't see it, Tram assured account underwriter that patient was being scheduled at the secondary infusion location. Any questions or concerns call Tram at [phone]. CHARUniversSelect [facility]-2024 Note Attestation signed by Richa Viramontes MD at 10/27/2024 12:07 PM I have seen and examined the patient. I reviewed the resident/fellow note and I agree with the findings and plan. Richa Viramontes MD Interventional Pulmonary Medicine Pulmonary and Critical Care Medicine [facility] Visit Note Patient: Aby Madrigal Age: 59 y.o. : 1965 Account No.: [id number] Chief complaint: RML nodule HPI Aby Madrigal is a 59 y.o. female with hypertension, CAD status post PCI recently in June 2024, cigarette smoking who is presenting to IP clinic via telemedicine as a new patient after being referred by Dr. Jarocho Saldaña. Patient reports recent admission to [facility] for hypertensive emergency. This prompted a CT of the chest which was positive for right middle lobe nodule. She then underwent PCI here at [facility] in June. She is currently [...] PFTs on file. CTA chest 04/21/2024 at [facility]: Right middle lobe approximately 1.2 cm solid nodule appreciated Subsequent PET CT 2024 at [facility]: Right middle lobe nodule is faintly [...] pretest probability of (more content not included)... [facility]11-12-2024 NoteREASON FOR VISIT + HPI: Aby [...] metoprolol - CT A/P Jun 2019 in [place], [place] performed for abd pain, incidentally detected [...] Take 25 mg by (more content not included)...[facility]10-14-2024 NoteUT Cardiology - [facility] Subjective Aby Madrigal is a 59 y.o. year old female patient being seen for follow up [facility] in Jun 2024 for hypotension. She [...] hypertension Sepsis (CMS/HCC) TIA (transient ischemic attack) QURESIH (dyspnea on exertion) Hyperlipidemia Murmur, heart Anxiety Type 2 diabetes mellitus without complication, without long-term current use of insulin (CMS/HCC) Chest pain Elevated troponin Hypomagnesemia NSTEMI (non-ST elevated myocardial infarction) (CMS/HCC) Hypokalemia Coronary artery disease involving [place] coronary artery of [place] heart without angina pectoris Depression, major, severe [...] and V6. She was then admitted to [facility] on 07/11/2024 with NSTEMI. She underwent [...] Mood and Affect: M (more content not included)...[facility]08-29-2024 Note Attestation signed by Richa Viramontes [...] Age: 59 y.o. : 1965 Account No.: [id number] Referring physician: Dr. Jarocho Saldaña Chief complaint: RML nodule HPI Aby Madrigal is a 59 y.o. female with hypertension, CAD status post PCI recently in June 2024,, cigarette smoking who is presenting to clinic via telemedicine as a new patient after being referred by Dr. Jarocho Saldaña. Patient reports recent admission to [place] ICU for hypertensive emergency. This prompted a CT of the chest which was positive for right middle lobe nodule. She then underwent PCI here at [facility] in June. She is currently [...] PFTs on file. CTA chest 04/21/2024 at [facility]: Right middle lobe approximately 1 cm spiculated nodule appreciated Subsequent PET CT 2024 at [facility]: Right middle lobe nodule is faintly [...] use alcohol. She reports (more content not included)...[facility] 07-18-2024 NoteREASON FOR VISIT + HPI: [...] metoprolol - CT A/P Jun 2019 in [place], [place] performed for abd pain, incidentally detected [...] History: Diagnosis Date Abnormal ECG Diabetes mellitus ([facility]) Hyperlipidemia Hypertension Obstructive sleep apnea Panic attacks Stroke ([facility]) Past Surgical History: [...] , Rfl: carvedilol (C (more content not included)...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 Resides at home alone. Discharge plan is home.[facility]08-27-2024 NotePatient sent to ED for hypotension and dizziness/lightheadednessUnParkwood [facility]08-21-2024 NoteHospital Medicine Discharge Summary Final Discharge Diagnosis: NSTEMI Admission Diagnosis: Hypokalemia [E87.6] NSTEMI (non-ST elevated myocardial infarction) (CMS/HCC) [I21.4] Hypertensive urgency [I16.0] Adenoma of left adrenal gland [D35.02] Resistant hypertension [I1A.0] Atherosclerosis of [place] coronary artery of [place] heart without angina pectoris [I25.10] Coronary artery disease involving [place] coronary artery of [place] heart with unstable angina pectoris ([facility]/HCC) [I25.110] Type 2 diabetes mellitus without complication, without long-term current use of insulin ([facility]) [E11.9] Hospital course: 59yoF with CAD s/p LAD SARKIS 11 days ago who was admitted to [facility] on 07/11 for chest pain. patient initially presented to [facility] for uncomfortable feeling in her chest and was found to have elevated troponins and new ischemic changes on EKG. Infusion and cardiology was consulted transferred to [facility] for further evaluation. Initially the patient had blood pressures up to 192/65 for which home medications were restarted. Troponins at [facility] were negative and there were no [...] 07/18/2024 8:20 AM Feng Christie MD [facility] ENDOCR [facility] 07/20/2024 1:00 PM Richa Viramontes MD [facility] 09/05/2024 1:00 PM Bijan Licea MD [facility] Your medication list START [...] Your Medications These medications were sent to [facility]/pharmacy #[id number] [place], [place] - [address] [address] isosorbide mononitrate ER 60 mg 24 hr [...] Renin activity In process (more content not included)...[facility]08-20-2024 Note 07/11/24 1817 Financial Resource Strain [...] than 3 How often do you attend islam or cheondoism services? 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 Referral Reason Psychosocial assessment Patient Information Primary Caregiver Self Accompanied by/Relationship Daughter (Rosita); Utvoamdw-sn-eag (Yesy) Activities of Daily Living Assistive Device Not applicable Living Arrangement (Current/Prior to Hospitalization) Private residence (Lives at home by herself) Ambulation Independent Dressing Independent Feeding Independent Behavior Oriented (A&Ox4) Communication Can write;Talks;Understands speaking;Understands Slovak;Reads Income Information Income Source Unemployed (receives survivor benefits) Discharge Planning Support Systems Children;Family members (daughter, ucgjpyqr-kp-fdg, son) Type of Residence Private residence Will patient need Precert for Post Acute needs? No Patient's goal for discharge Home Does the patient need discharge transport arranged? No Completed social work assessment and SDoH screening. Patient was A&Ox4 at this time. Patient's daughter, Rosita, and patient's pglytcyc-or-crb, Yesy, were currently present at bedside. Patient reported that she lives at home by herself and she identified her support system as her daughter, Rosita, her biitqzba-pw-kzf, Yesy, and her son, Elie. Patient endorsed [...] denied any alcohol consumption or recreational drug use.[facility] 07-11-2024 NoteHospital Medicine History and Physical 07/11/2024 12:19 PM THE HOSPITALIST TEAM PREFERS TO USE [employer] FOR COMMUNICATION 7AM-7PM. IF I DO NOT RESPOND WITHIN 15 MINUTES, PLEASE PAGE ME/CALL THROUGH THE RESEARCH AND DEVELOPMENT SCIENTIST. FROM 7PM-7AM, PLEASE PAGE [phone](COVR) Chief Complaint Chief Complaint Patient presents with [...] s/p stent placement 11 days ago at [facility] presented to ER as a transfer from [facility] for NSTEMI. Patient states that last night [...] Noted Hypokalemia 07/11/2024 Coronary artery disease involving [place] coronary artery of [place] heart with unstable angina pectoris ([facility]) 07/11/2024 Anxiety 06/30/2024 Type 2 diabetes mellitus without complication, without long-term current use of insulin ([facility]) 06/30/2024 Chest pain 06/30/2024 Elevated troponin 06/30/2024 Hypertensive urgency 06/30/2024 Hypomagnesemia 06/30/2024 QURESHI (dyspnea on exertion) 05/26/2024 Atherosclerosis of [place] coronary artery of [place] heart without angina pectoris 05/26/2024 Hyperlipidemia 05/26/2024 Murmur, heart 05/26/2024 Sepsis ([facility]) 07/14/2019 BV (bacterial vaginosis) 10/18/2017 GERD (gastroesophageal reflux disease) 10/18/2017 Essential hypertension 10/18/2017 TIA (transient ischemic attack) 10/18/2017 NSTEMI (non-ST elevated myocardial infarction) ([facility]) 06/29/2024 Assessment and [...] daily for GI prophylaxis (more content not included)...[facility]08-19-2024 Note [place] [facility] Note Reason for cardiology [...] Take 1 tablet (more content not included)... [facility]08-10-2024 NoteBlue [facility], Inc.ital Medicine Discharge Summary Final Discharge Diagnosis: # NSTEMI # HTN urgency # Chronic HFpEF # NIDDM # Bilateral renal artery stenosis Admission Diagnosis: Chest pain [R07.9] Hospital course: Surgical, Invasive or Diagnostic Procedures Done During Admission: Cardiac Cath Consultations During Admission: Cardiology 59 y.o. female who came from home with past medical history of anxiety, DM2, hypertension, IBS presents a direct mission from [facility] with a chief complaint of chest pain. [...] seen on her EKG. She went to [facility] for the symptoms. Labs were completed showing [...] on a heparin drip and transferred to [facility] for likely cardiac cath. # [...] Your Medications These medications were sent to [facility]/pharmacy #[id number] [place] [address] carvedilol 25 mg tablet cloNIDine 0.1 mg [...] 7 days Lab Units more content not included)...[facility]08-10-2024 NoteUTP CARDIOLOGY INPATIENT PROGRESS NOTE Reason for follow up: NSTEMI Subjective Aby Madrigal, a 59 y.o. female patient, is transferred from [facility] for continuity of care. Patient reports that 3 days ago, she woke up in the mid of the night with indigestion, and a feeling fullness, but no pressure like chest pain. She presented to [facility], where she was found to be [...] MONOSABS 0.56 06/29/2024 E (more content not included)...[facility]08-09-2024 NotePatient: Aby Madrigal Procedure Information Date/Time: 06/30/241599 Procedure: Coronary angiography (Bilateral) Location: [facility] DETAILER FURNITURE 3 / [facility] (Cath) Providers: Brunilda [...] products. Plan discussed with attending. 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08-09-2024 Note06/30/24 1431 Admission Assessment Questions Verify [...] Does the patient have a case management rn assigned to them through their insurance? No [...] able to send link and activate MyChart? NoUnAvita Health Systemedo Medical [id number] NoteCase was discussed with the SALVADOR on 06/29/2024. I agree with the history, physical, assessment, and plan of care. I discussed the findings and therapeutic plan. I agree with the documentation, except for any updates below. Maurice Nogueira MDMercy Health St. Elizabeth [facility]08-09-2024 NoteHospital Medicine History and Physical 06/30/2024 1:15 AM THE HOSPITALIST TEAM PREFERS TO USE [employer] CHAT FOR COMMUNICATION 7AM-7PM. IF I DO NOT RESPOND WITHIN 15 MINUTES, PLEASE PAGE ME/CALL THROUGH THE RESEARCH AND DEVELOPMENT SCIENTIST. FROM 7PM-7AM, PLEASE PAGE [phone](COVR) Chief Complaint [facility] with [facility] History of Present Illness Aby Madrigal is an 59 y.o. female who came from home with past medical history of anxiety, DM2, hypertension, IBS presents a direct mission from [facility] with a chief complaint of chest pain. [...] seen on her EKG. She went to [facility] for the symptoms. Labs were completed showing [...] on a heparin drip and transferred to [facility] for likely cardiac cath. Review [...] complication, without long-term current use of insulin ([facility]) 06/30/2024 Chest pain 06/30/2024 Elevated troponin 06/30/2024 Hypertensive urgency 06/30/2024 QURESHI (dyspnea on exertion) 05/26/2024 Atherosclerosis of [place] coronary artery of [place] heart without angina pectoris 05/26/2024 Hyperlipidemia 05/26/2024 Murmur, heart 05/26/2024 Sepsis (CMS/HCC) 07/14/2019 BV (bacterial vaginosis) 10/18/2017 GERD (gastroesophageal reflux disease) 10/18/2017 Essential hypertension 10/18/2017 TIA (transient ischemic attack) 10/18/2017 Assessment and Plan Aby Madrigal is an 59 y.o. female who came from home with past medical history of anxiety, DM2, hypertension, IBS presents a direct mission from [facility] with a chief complaint of chest pain. [...] echoc (more content not included)... [facility]01-04-2023 NoteOPERATIVE NOTE OPERATION DATE: 11/25/2022 PREOPERATIVE [...] in 10 years. CC: Kendra Moran M.D.The [id number] NoteChief Complaint consultation for colonoscopy and skin [...] mg= 1 tab(s), Oral, (more content not included)...[facility] HospitalComment on above:Result Comment: Electronically Signed By: DIPESH BUCKNER, Umm Hogan\Date and Time Signed: 10/11/22 11:01 ESTEvaluation + Plan note No data available for this section General Surgery [place] Evaluation note* Diagnosis Genitourinary syndrome of menopause- Primary PCB (post coital bleeding) Postcoital bleeding [facility] noteNo assessment information available [facility] Work Phone: Evaluation note* Diagnosis Well woman exam with routine gynecological exam- Primary Routine gynecological examination documented [facility] Dis[facility] instructions No data available for this section General Surgery [place] Instructions* Attachments The following attachments cannot be sent through Care Everywhere. * Calcium and vitamin D for bone health (Slovak) * Vaginal dryness (Slovak) documented in this encounterNorwalk [facility] SystemProgress note No data available for this section General Surgery [place] Reason for referral (narrative)No reason for referral information availablePremier Health [facility] Work Phone: Summary Purpose Family History [...] - Pain in left knee May 21 025 6:26am CONSULT DR MORAN LT KNEE PAIN NX April 2:00pm Reason for Visit Admit Date Viral URI March 03, 2025 10: 35am Strain of left knee May 21, 2025 2:00 pm Additional Source Comments Patient Care team informatio n (unrecognized section and content) Oncology Nurse Relationship Specialty Start Date End Date Kendra [...] May 21, 2025 End: May 21, 2025 Oncology Nurse Relationship Specialty Start Date End Date Kendra Moran MD PCP - General Family Medicine 06/06/19 INFORMATION SOURCE (unrecogn ized section and content) DATE CREATED AUTHOR 12/16/2022 [facility] DATE CREATED AUTHOR AUTHOR'S ORGANIZ ATION 03/26/[address] [facility] DATE CREATED AUTHOR AUTHOR'S ORGANIZ ATION 02/11/2025 [facility] DATE CREATED AUTHOR AUTHOR'S ORGANIZ ATION 06/05/2025 [facility] DATE CREATED AUTHOR AUTHOR'S ORGANIZ ATION 06/06/2025 [facility] DATE CREATED AUTHOR AUTHOR'S ORGANIZ ATION 06/27/2025 [facility] Reason for Visit (unrecogniz ed section and [...] BE BASED ON THE PRIMARY CLINICAL RECORDS. [employer] provides no warranty or guarantee of the accuracy or completeness of information in this document.
--- OUTSIDE RECORDS SUMMARY | 2025-07-08 10:01 | XMS_ITS | Clinical Summary ---
Author Organization [facility] Address [address] [place] [address] Care Team Providers Care Newspaper Carrier Name Role Phone Kendra Murillo MD Primary Care Provider [phone] Allergies Active Allergy Reactions Criticality Noted Date Comments Lisinopril Cough 06/21/2024 Amlodipine Other 06/21/2024 Twitchy eye Alprazolam Other 05/26/2024 Medications Protonix 40 mg EC tablet Take 40 mg by mouth if needed each day. 09/20/20 23 Active rosuvastatin (Crestor) 40 mg tabletIndicatio ns:Chest pain,NSTEMI (non-ST elevated myocardial infarction) (CMS/HCC) Take 1 tablet (40 mg) by mouth in the morning. 30 tablet 07/01/20 24 2024 Active Invokana 100 mg Take 300 mg by mouth in the morning. 08/23/20 24 Active hydrALAZINE (Apresoline) 50 mg tablet Take 50 mg by mouth if needed in the morning, at noon, and at bedtime. 08/23/20 24 Active QUEtiapine (SEROquel) 100 mg tablet Take 100 mg by mouth in the morning. 10/07/20 24 Active LORazepam (Ativan) 1 mg tablet TAKE 1 TABLET BY MOUTH THREE TIMES A DAY FOR 30 DAYS 10/17/20 24 Active spironolactone (Aldactone) 50 mg tabletIndicatio ns:Primary hypertension Take 0.5 tablets (25 mg) by mouth in the morning. 04/23/20 25 Active Additional Information Patient taking differently: 12.5 mgoral Daily, Reported on 06/25/2025 magnesium oxide (Mag-Ox) 400 mg (241.3 mg magnesium) tablet Take 400 mg by mouth in the morning. 05/01/20 Active aspirin 81 mg EC tabletIndicatio ns:NSTEMI (non-ST elevated myocardial infarction) (CMS/HCC) Take 1 tablet (81 mg) by mouth in the morning. 30 tablet 11 06/08/20 25 2025 Active clopidogrel (Plavix) 75 mg tabletIndicatio ns:NSTEMI (non-ST elevated myocardial infarction) (CMS/HCC),Chest pain Take 1 tablet (75 mg) by mouth in the morning. 30 tablet 11 06/08/20 25 2025 Active carvedilol (Coreg) 12.5 mg tabletIndicatio ns:Primary hypertension Take 2 tablets (25 mg) by mouth two times daily for 197 doses. 120 tablet 3 06/08/20 25 2024 Active isosorbide mononitrate ER (Imdur) 30 mg 24 hr tabletIndicatio ns:Coronary artery disease involving tuscarora coronary artery of tuscarora heart without angina pectoris Take 1 tablet (30 mg) by mouth in the morning. Do not crush or chew. 90 tablet 3 06/25/20 25 2025 Active QUEtiapine (SEROquel) 25 mg tablet Take 100 mg by mouth at bedtime. 2024 Discontinued isosorbide mononitrate ER (Imdur) 60 mg 24 hr tabletIndicatio ns:Essential hypertension Take 1 tablet (60 mg) by mouth in the morning for 97 doses. Do not crush or chew. 30 tablet 3 06/09/20 25 2024 Discontinued(D ose adjustment) Active Problems Problem Noted Date Diagnosed Date Abnormal magnetic resonance imaging study 2024 Acquired hypothyroidism 06/25/2025 Acute non-ST segment elevation myocardial infarc tion 06/25/2025 Allergic conjunctivitis 06/25/2025 Carotid artery stenosis 06/25/2025 Cellulitis and abscess of face 06/25/2025 COVID-19 06/25/2025 Derangement of knee 06/25/2025 Diarrhea 06/25/2025 Edema 06/25/2025 Former tobacco use 06/25/2025 Hemorrhoids 06/25/2025 Inflamed seborrheic keratosis 06/25/2025 Insomnia 06/25/2025 Kidney stone 06/25/2025 Left ventricular hypertrophy 06/25/2025 Mass of left adrenal gland 06/25/2025 Migraine 06/25/2025 Obstructive sleep apnea 06/25/2025 Paresthesia of upper limb 06/25/2025 Pulmonary nodule 06/25/2025 Skin sensation disturbance 06/25/2025 Thrush 06/25/2025 Abnormal stress ECG 06/06/2025 Secondary hypertension 01/09/2025 Assessment & Plan (06/07/2025 5:23 PM EDT): Optimize antihypertensives CODE STATUS full code Assessment & Plan (06/07/2025 4:13 AM EDT): Optimize antihypertensives CODE STATUS full code Adenoma of left adrenal gland 01/09/2025 Resistant hypertension 10/05/2024 Primary aldosteronism 10/03/2024 Assessment & Plan (06/07/2025 5:23 PM EDT): - Continue Aldactone - December of this year: Cortisol: 3.6 and Aldosterone: 7.3 Assessment & Plan (06/07/2025 4:13 AM EDT): As above Depression, major, severe recurrence 09/04/2024 Panic disorder 09/04/2024 Hypokalemia 07/11/2024 Coronary artery disease invo lving tuscarora coronary artery of [place] heart without angina pectoris 07/11/2024 Anxiety 06/30/2024 Type 2 diabetes mellitus wit hout complication, without long-term current use of insulin 06/30/2024 Assessment & Plan (06/07/2025 5:23 PM EDT): - Continue BG checks - Continue SSI while hospitalized - Continue Farxiga - Consider obtaining A1c Assessment & Plan (06/07/2025 4:13 AM EDT): Insulin Farxiga blood sugar Chest pain 06/30/2024 Elevated troponin 06/30/2024 Hypomagnesemia 06/30/2024 NSTEMI (non-ST elevated myocardial infarction) 0 06/29/2024 Assessment & Plan (06/07/2025 5:23 PM EDT): - Pain control - blood pressure control: [...] gradients up to 34 mmHg w/ valsalva Assessment & Plan (06/07/2025 4:13 AM EDT): Pain control blood pressure control cycle troponin continue aspirin Plavix statin currently on heparin cardiology to see patient QURESHI (dyspnea on exertion) 05/26/2024 Hyperlipidemia 05/26/2024 Murmur, heart 05/26/2024 Sepsis 07/14/2019 BV (bacterial vaginosis) 10/18/2017 Gastroesophageal reflux disease without esophagi tis 10/18/2017 Assessment & Plan (06/07/2025 5:23 PM EDT): - Continue protonix Assessment & Plan (06/07/2025 4:13 AM EDT): PPI Essential hypertension 10/18/2017 TIA (transient ischemic attack) 10/18/2017 Resolved Problems Problem Noted Date Diagnosed Date Resolved Date Hypertensive urgency 06/30/2024 024 Atherosclerosis of tuscarora co ronary artery of tuscarora heart without angina pectoris 05/26/2024 Encounters Date Type Department Care Team Description 06/25/2025 3:30 PM EDT Office Visit [facility] [address] [place] [address] Rafa Spence MD Coronary artery disease involving tuscarora coronary artery of tuscarora heart without angina pectoris (Primary Dx); Primary hypertension; Status post insertion of drug eluting coronary artery stent; Renal artery stenosis; Musculoskeletal chest pain 06/08/[address] [facility] Cardiology Clinic [address] [place] [address] Tanya Elam MA 06/07/2025 12:55 PM EDT - 06/07/2025 1:55 PM EDT Surgery [facility] Heart [facility] Vascular [facility] Vascular Lab [address] [place] [address] Omar Cotto MD Coronary angiography 06/07/2025 2:55 AM EDT - 06/08/2025 3:04 PM EDT Hospital Encounter [facility] 5ABCD Surgery Stepdown [address] [place] [address] Antonio Fuchs MD Chang, Kyu Chul, MD NSTEMI (non-ST elevated myocardial infarction) (CMS/HCC) (Primary Dx); Abnormal stress ECG; Chest pain; Essential hypertension; Coronary artery disease involving tuscarora coronary artery of tuscarora heart without angina pectoris; Primary hypertension Discharge Disposition: Home or Self Care (01) 06/07/2025 Travel 06/05/2025 Orders Only [facility] [address] [place] [address] Mary Gonzalez MD 05/14/2025 11:30 AM EDT Office Visit [facility] [address] [place] [address] Rafa Spence MD Coronary artery disease involving tuscarora coronary artery of tuscarora heart with other form of angina pectoris (Primary Dx); Primary hypertension; Status post insertion of drug eluting coronary artery stent; Renal artery stenosis 04/23/2025 2:15 PM EDT Office Visit [facility] [address] [place] [address] Rafa Spence MD Coronary artery disease involving tuscarora coronary artery of tuscarora heart without angina pectoris (Primary Dx); Primary hypertension; Status post insertion of drug eluting coronary artery stent; Renal artery stenosis 04/20/2025 Orders Only [facility] [address] [place] [address] Mary Gonzalez MD 04/10/2025 1:00 PM EDT Follow-Up [facility] Comprehensive Medical Practice at [address] [address] Feng Cloud MD Hypertension due [...] to drink a lot on the weekend [facility] Utilities Answer Date Recorded In the past 12 months has [facility] [employer], oil, or water [email or web address] threatened to shut off services in your [...] week 07/11/2024 How often do you attend [facility] or [employer] services? Never 07/11/2024 Do you belong to any clubs o r organizations such as caodaism groups, unions, fraternal or athletic groups, or [...] Recorded Patient Health Questionnaire-2 Score 0 10/26/2024 [facility] - Occupational Stress [...] any time in the past [address] [facility], were you homeless or living in a nursing home (including now)? Yes 06/07/2025 Hunger Vital Sign [...] Heterosexual or Straight 11/2024 1:49 PM EDT Last Filed Vital Signs Vital Sign Reading Time Taken Comments Blood Pressure 111/62 06/25/2025 3:58 PM EDT Pulse 67 06/25/2025 3:58 PM EDT Temperature 36.1 C (96.9 F) 06/08/2025 12:01 PM EDT Respiratory Rate 19 06/08/2025 12:00 PM EDT Oxygen Saturation 98% 06/25/2025 3:49 PM EDT Inhaled Oxygen Concentration - - Weight 89.8 kg (198 lb) 06/25/2025 3:49 PM EDT Height 162.6 cm (5' 4 ) 06/25/2025 3:49 PM EDT Body Mass Index 33.99 06/25/2025 3:49 PM EDT Plan of Treatment Upcoming Encounters Date Type Department Care Team (Late st Contact Info) Description 07/24/2025 1:00 PM EDT Follow-Up [facility] Comprehensive Medical Practice at [facility] Endocrinology [address] [place] [phone] Feng Cloud MD [address] [facility] [address] [place] [address] Health Maintenance Due Date Last [...] (1 of 2) 2014 COVID-19 Vaccine (3 2023-2 5 season) 2024 04/14/2021, 03/11/2021 Influenza Vaccine (#1) 2025 , 10/25/2020, 09/20/2017 Depression Screening 10/26/2025 10/26/2024 HIB [...] this topic Medical Devices Implanted Type Area Rehabilitation Counselor Device Identifier Shelf Expiration Date Model / Serial / Lot Stent,Synergy Mr 2.75 X 20 - [id number] - [id number] Implanted:Qty : 1 on 06/30/2024 by Brunilda Cuellar MD at [facility] Drug Eluting Stent [employer] Hotline [id number] 04/13/2025 [id number] / [id number] / [id number] Stent,Synergy Rosendo,Mitchel 4.0x12m - [id number] Implanted:Qty : 1 on 06/07/2025 by Omar Cotto MD at [facility] Stent Right: Heart [employer] Hotline [id number] 03/07/2026 [id number] / / [id number] Procedures Procedure Name Priority Date/Time Associated Diagnosis Comments POCT GLUCOSE METER UNSOLICITED RESULTS Routine 06/08/2025 12:09 PM EDT COMPLETE ECHO (TTE) W/ IMAGING AGENT Routine 06/08/2025 9:20 AM EDT ECG 12-LEAD Routine 06/08/2025 8:42 AM EDT POCT GLUCOSE METER UNSOLICITED RESULTS Routine 06/08/2025 7:08 AM EDT ACTIVATED CLOTTING TIME Routine 06/08/2025 5:10 AM EDT ACTIVATED CLOTTING TIME Routine 06/08/2025 5:10 AM EDT LIPID PANEL STAT Add-on 06/08/2025 5:02 AM EDT CBC Routine 06/08/2025 5:02 AM EDT BASIC METABOLIC PANEL Routine 06/08/2025 5:02 AM EDT POCT GLUCOSE METER UNSOLICITED RESULTS Routine 06/07/2025 8:21 PM EDT PERC CORONARY INTERVENTION Routine 06/07/2025 5:06 PM EDT Abnormal stress ECG INSTANT WAVE FREE RATIO (IFR) Routine 06/07/2025 5:06 PM EDT Abnormal stress ECG LEFT HEART CATH Routine 06/07/2025 5:06 PM EDT Abnormal stress ECG CORONARY ANGIOGRAPHY Routine 06/07/2025 5:06 PM EDT Abnormal stress ECG CBC Routine 06/07/2025 11:33 AM EDT BASIC METABOLIC PANEL Routine 06/07/2025 11:33 AM EDT POCT GLUCOSE METER UNSOLICITED RESULTS Routine 06/07/2025 11:18 AM EDT ANTI-FACTOR XA Timed 06/07/2025 10:20 AM EDT POCT GLUCOSE METER UNSOLICITED RESULTS Routine 06/07/2025 7:35 AM EDT HIGH SENSITIVITY TROPONIN I STAT 06/07/2025 4:52 AM EDT PLATELET COUNT STAT 06/07/2025 4:52 AM EDT APTT STAT 06/07/2025 4:52 AM EDT LEXISCAN STRESS MYOCARDIAL PERFUSION IMAGING Routine 06/05/2025 3:58 PM EDT BASIC METABOLIC PANEL Routine 04/09/2025 2:39 PM EDT from Last 3 Months Results * (ABNORMAL) POCT glucose meter (06/08/2025 12:09 PM EDT) Only the most recent of5 resultswithin the time period is included. [facility] Glucose POC 135(H) 70 - 105 mg/dL 06/08/2025 12:20 PM EDT [facility] Comment:[email or web address] Blood Capillary blood specimen / Unknown 06/08/2025 12:09 PM EDT 06/08/2025 12:20 PM EDT Narrative [facility] - 06/08/2025 12:20 PM EDT Waived Testing in the ED is performed under the ED CLIA certificate #[id number]. us Gokul Cutler MD LAB BLOOD ORDERABLES Final Res ult [facility] [address] [place] [address] * COMPLETE ECHO (TTE) W/ IMAGING AGENT (06/08/2025 9:20 AM EDT) Anatomical Region Laterality Modality Other 06/08/2025 8:50 AM EDT Narrative 06/08/2025 12:37 PM EDT 1 1 [facility] Heart Station [address] [place] [address] [phone] (fax) Echocardiogram-[facility] Name: ABY MADRIGAL Study Date: 06/08/2025 08:50 AM B/P: 64 mmHg/197 mmHg HR: 49 bpm Date of : 1965 Location: [facility] Height: 64 in. Age: 59 year(s) Patient [...] opacification and better delineation of endocardial borders. Measurements Left Ventricle Label Value Normal Value LVOTd 2 cm (18cm - 20cm) LVOT VTI 27 cm (18cm - 22cm) LVOT PGmax 4 mmHg LVDd, 2D 4.69 cm (3.9cm - 5.3cm) LVDs, 2D 2.53 cm (2.1cm - 4cm) IVSd, 2D 0.96 cm (0.6cm - 1.1cm) LVPWd, 2D 1.06 cm (0.6cm - 0.9cm) LVEF, BP 77 % (55% - 65%) LV Mass, 2D ASE 166.13 g LV Mass Index, 2D ASE 85.6 g/m?? (44g/m?? - 88.4g/m??) RWT, MM 0.45 (0 - 0.42) LVSVI, 2D 39.2 ml/m2 LVOT PGmean 2 mmHg LVSV_LVOT 85 ml Right Ventricle Label Value Normal Value RVDd, 2D 3.76 cm (1.9cm - 3.8cm) TAPSE 2.6 cm Left Atrium Label Value Normal Value LA Volume, BP 51 ml (22ml - 52ml) LAESV index, BP 26.3 ml/m?? Right Atrium Label Value Normal Value RA Area 13.2 cm?? Aortic Valve Label Value Normal Value AV DVI 0.61 AV VTI 41.1 cm Mitral Valve Label Value Normal Value MV E Vmax 0.79 m/s MV A Vmax 0.88 m/s MV E/A 0.9 MV E/E' lateral 9.9 MV E' lateral 0.08 m/s Tricuspid Valve Label Value Normal Value RA Pressure 3 mmHg RVSP 30 mmHg TR Vmax 2.58 m/s Aorta Label Value Normal Value AoRoot, 2D 3 cm (1.4cm - 3.8cm) Great Vessels Label Value Normal Value IVC 1.5 cm (1.2cm - 2.3cm) Valvular Assessment LVOT 0.7 - 1.1 m/sec Aortic Valve 1.0 - 1.7 m/sec Mitral Valve 0.6 - 1.3 m/sec Tricuspid Valve 0.3 - 0.7 m/sec Pulmonic Valve 0.6 - 0.9 m/sec Regurgitation No Mild Mild Trivial Stenosis No No No No Max Velocity 1.06 m/sec 1.73 m/s 0.79 m/sec 1.03 m/s Max Gradient 12.00 mmHg 4.00 mmHg Mean Gradient 6.00 mmHg Valve Area 1.9 cm?? Findings Left Ventricle: Increased LVOT velocity in the [...] The left atrium is normal in size. Right Atrium: The right atrium is normal in size. Mitral Valve: There is nonspecific thickening of the mitral valve leaflet. Mild mitral regurgitation. No mitral valve stenosis. Aortic Valve: Focal aortic cusp thickening is noted. No aortic valve regurgitation. No aortic valve stenosis. Tricuspid Valve: Normal tricuspid valve. Mild tricuspid regurgitation. No tricuspid valve stenosis. Pulmonic Valve: Normal pulmonary valve. Trivial pulmonary regurgitation. No pulmonic valve stenosis. Aorta: The aortic root exhibits normal size. Great Vessels: IVC: The IVC is normal in size. Respiratory inspiration greater than 50%. Pericardium: There is a minimal pericardial effusion. Procedure Staff Reading Group: [facility] Referring Physician: KENDRA MURILLO Mac Artist: MILTON Lewis, RDCS Ordering Physician: BIJAN LICEA Procedure Note Jodi Prajapati MD - 06/08/2025 1 1 [facility] Heart Station [address] [place] [address] [phone] (fax) Echocardiogram-[facility] Name: ABY MADRIGAL Study Date: 06/08/2025 08:50 AM B/P: 64 mmHg/197 mmHg HR: 49 bpm Date of : 1965 Location: [facility] Height: 64 in. Age: 59 year(s) Patient [...] opacification and better delineation of endocardial borders. Measurements Left Ventricle Label Value Normal Value LVOTd 2 cm (18cm - 20cm) LVOT VTI 27 cm (18cm - 22cm) LVOT PGmax 4 mmHg LVDd, 2D 4.69 cm (3.9cm - 5.3cm) LVDs, 2D 2.53 cm (2.1cm - 4cm) IVSd, 2D 0.96 cm (0.6cm - 1.1cm) LVPWd, 2D 1.06 cm (0.6cm - 0.9cm) LVEF, BP 77 % (55% - 65%) LV Mass, 2D ASE 166.13 g LV Mass Index, 2D ASE 85.6 g/m?? (44g/m?? - 88.4g/m??) RWT, MM 0.45 (0 - 0.42) LVSVI, 2D 39.2 ml/m2 LVOT PGmean 2 mmHg LVSV_LVOT 85 ml Right Ventricle Label Value Normal Value RVDd, 2D 3.76 cm (1.9cm - 3.8cm) TAPSE 2.6 cm Left Atrium Label Value Normal Value LA Volume, BP 51 ml (22ml - 52ml) LAESV index, BP 26.3 ml/m?? Right Atrium Label Value Normal Value RA Area 13.2 cm?? Aortic Valve Label Value Normal Value AV DVI 0.61 AV VTI 41.1 cm Mitral Valve Label Value Normal Value MV E Vmax 0.79 m/s MV A Vmax 0.88 m/s MV E/A 0.9 MV E/E' lateral 9.9 MV E' lateral 0.08 m/s Tricuspid Valve Label Value Normal Value RA Pressure 3 mmHg RVSP 30 mmHg TR Vmax 2.58 m/s Aorta Label Value Normal Value AoRoot, 2D 3 cm (1.4cm - 3.8cm) Great Vessels Label Value Normal Value IVC 1.5 cm (1.2cm - 2.3cm) Valvular Assessment LVOT 0.7 - 1.1 m/sec Aortic Valve 1.0 - 1.7 m/sec Mitral Valve 0.6 - 1.3 m/sec Tricuspid Valve 0.3 - 0.7 m/sec Pulmonic Valve 0.6 - 0.9 m/sec Regurgitation No Mild Mild Trivial Stenosis No No No No Max Velocity 1.06 m/sec 1.73 m/s 0.79 m/sec 1.03 m/s Max Gradient 12.00 mmHg 4.00 mmHg Mean Gradient 6.00 mmHg Valve Area 1.9 cm?? Findings Left Ventricle: Increased LVOT velocity in the [...] The left atrium is normal in size. Right Atrium: The right atrium is normal in size. Mitral Valve: There is nonspecific thickening of the mitral valve leaflet. Mild mitral regurgitation. No mitral valve stenosis. Aortic Valve: Focal aortic cusp thickening is noted. No aortic valve regurgitation. No aortic valve stenosis. Tricuspid Valve: Normal tricuspid valve. Mild tricuspid regurgitation. No tricuspid valve stenosis. Pulmonic Valve: Normal pulmonary valve. Trivial pulmonary regurgitation. No pulmonic valve stenosis. Aorta: The aortic root exhibits normal size. Great Vessels: IVC: The IVC is normal in size. Respiratory inspiration greater than 50%. Pericardium: There is a minimal pericardial effusion. Procedure Staff Reading Group: [facility] Referring Physician: KENDRA MURILLO Mac Artist: MILTON Lewis, RDCS Ordering Physician: BIJAN LICEA us Bijan Licea MD CV ECHO PROCEDURES Final Result * ECG 12 lead (06/08/2025 8:42 AM EDT) Ventricular Rate 53 BPM GE MUSE Atrial Rate 53 BPM GE MUSE NM Interval 164 ms GE MUSE QRS DURATION 90 ms GE MUSE QT Interval 432 ms GE MUSE QTC CALCULATION(BAZE TT) 405 ms GE MUSE P [place] 41 degrees GE MUSE R-[place] -5 degrees GE MUSE T Wave [place] 97 degrees GE MUSE 06/08/2025 8:32 AM EDT 06/08/2025 11:55 AM EDT Impressions GE MUSE - 06/08/2025 11:55 AM EDT Sinus bradycardia Left ventricular hypertrophy ( R in aVL , [place] product ) with Repolarization Abnormality Inferior infarct (cited on or before 18-JUL-2024) T wave abnormality, consider lateral ischemia Abnormal ECG When compared with ECG of 18-JUL-2024 09:13, No significant change was found Confirmed by Errol TURCIOS, L.S. (2) on 06/08/2025 11:55:38 AM Narrative Procedure Note Mikaela Turcios MD - 06/08/2025 IMPRESSION: Sinus bradycardia Left ventricular hypertrophy ( R in aVL , [place] product ) with Repolarization Abnormality Inferior infarct (cited on or before 18-JUL-2024) T wave abnormality, consider lateral ischemia Abnormal ECG When compared with ECG of 18-JUL-2024 09:13, No significant change was found Confirmed by Bakari TURCIOS., L.S. (2) on 06/08/2025 11:55:38 AM us Gokul Cutler MD ECG ORDERABLES Final Result KIRAN CHAVEZ * (ABNORMAL) Activated clotting time (06/08/2025 5:10 AM EDT) Only the most recent of2 resultswithin the time period is included. Activated Clotting Time 249(H) 82 - 152 s 06/08/2025 5:10 AM EDT [facility] Blood Venous blood specimen / Unknown 06/08/2025 5:10 AM EDT 06/08/2025 5:10 AM EDT Gokul Cutler MD LAB POINT OF CARE TE ST DOCKED DEVICE UNSOLICITED RESULTS Final Result [facility] [address] [place] [address] * (ABNORMAL) CBC (06/08/2025 5:02 AM EDT) Only the most recent of2 resultswithin the time period is included. Auto WBC 5.53 4.00 - 10.60 10*3/uL 06/08/2025 5:32 AM EDT [facility] ([facility]) RBC 4.16 3.80 - 5.00 10*6/uL 06/08/2025 5:32 AM EDT [facility] ([facility]) Hemoglobin 11.2(L) 12.0 - 15.0 g/dL 06/08/2025 5:32 AM EDT [facility] ([facility]) Hematocrit 35.2(L) 36.0 - 45.0 % 06/08/2025 5:32 AM EDT [facility] ([facility]) MCV 84.6 82.0 - 98.0 fL 06/08/2025 5:32 AM EDT [facility] ([facility]) MCH 26.9(L) 27.0 - 33.0 pg 06/08/2025 5:32 AM EDT [facility] ([facility]) MCHC 31.8(L) 32.0 - 35.0 g/dL 06/08/2025 5:32 AM EDT [facility] ([facility]) RDW 16.5(H) 11.5 - 15.0 % 06/08/2025 5:32 AM EDT [facility] ([facility]) Platelets 172 150 - 400 10*3/uL 06/08/2025 5:32 AM EDT [facility] ([facility]) Blood Venous blood specimen / Unknown Venipuncture / Unknown 06/08/2025 5:02 AM EDT 06/08/2025 5:11 AM EDT us Gokul Cutler MD LAB BLOOD ORDERABLES Final Res ult [facility] ([facility]) [address] [place] [address] * (ABNORMAL) Lipid panel (06/08/2025 5:02 AM EDT) Pathologist [facility] Triglycerides 61 <150 mg/dL 06/08/2025 8:10 AM EDT [facility] ([facility]) Comment: TRIGLYCERIDE REFERENCE RANGE: 20 YEARS AND OLDER CARDIOVASCULAR RISK LESS THAN 150 mg/dL LOW RISK 150 TO 199 mg/dL BORDERLINE RISK 200 mg/dL AND GREATER HIGH RISK Cholesterol 95(L) 120 - 200 mg/dL 06/08/2025 8:10 AM EDT [facility] ([facility]) LDL Calculated 42 0 - 160 mg/dL 06/08/2025 8:10 AM EDT [facility] ([facility]) HDL 41 23 - 92 mg/dL 06/08/2025 8:10 AM EDT [facility] ([facility]) Non HDL Cholesterol 54 06/08/2025 8:10 AM EDT [facility] ([facility]) Total VLDL-C 12 0 - 40 mg/dL 06/08/2025 8:10 AM EDT [facility] ([facility]) Cholesterol/HDL Ratio 2.3 mg/dL 06/08/2025 8:10 AM EDT [facility] ([facility]) Blood Venous blood specimen / Unknown Venipuncture / Unknown 06/08/2025 5:02 AM EDT 06/08/2025 5:10 AM EDT Antonio Fuchs MD LAB BLOOD ORDERABLES Final Resul t [facility] ([facility]) [address] [place] [address] * (ABNORMAL) Basic metabolic panel (06/08/2025 5:02 AM EDT) Only the most recent of3 resultswithin the time period is included. Pathologist [facility] Sodium 140 136 - 145 mmol/L 06/08/2025 5:43 AM EDT [facility] ([facility]) Potassium 3.7 3.5 - 5.1 mmol/L 06/08/2025 5:43 AM EDT [facility] ([facility]) Chloride 111(H) 98 - 107 mmol/L 06/08/2025 5:43 AM EDT [facility] ([facility]) CO2 24 21 - 31 mmol/L 06/08/2025 5:43 AM EDT [facility] ([facility]) BUN 13 7 - 25 mg/dL 06/08/2025 5:43 AM EDT [facility] ([facility]) Creatinine 0.90 0.60 - 1.20 mg/dL 06/08/2025 5:43 AM EDT [facility] ([facility]) Glucose 87 70 - 100 mg/dL 06/08/2025 5:43 AM EDT [facility] ([facility]) Calcium 8.1(L) 8.6 - 10.3 mg/dL 06/08/2025 5:43 AM EDT [facility] ([facility]) Anion Gap 9 7 - 20 mmol/L 06/08/2025 5:43 AM EDT [facility] ([facility]) eGFR 73.2 >60.0 mL/min/1. 73m*2 06/08/2025 5:43 AM EDT [facility] ([facility]) Comment:The [facility] s estimated glomerular filtration rate (eGFR) will no longer include consideration of race in its calculation. The National Kid[employer] s eGFR Task Force developed new recommendations for [...] disproportionately affect any one group of individuals. BUN/Creatinine Ratio 14.4 05/22 5:43 AM EDT [facility] ([facility]) Blood Venous blood specimen / Unknown Venipuncture / Unknown 06/08/2025 5:02 AM EDT 06/08/2025 5:10 AM EDT us Gokul Cutler MD LAB BLOOD ORDERABLES Final Res ult [facility] ([facility]) [address] [place] [address] * CORONARY ANGIOGRAPHY, LEFT HEART CATH, INSTANT WAVE FREE RATIO (IFR), PERC CORONARY INTERVENTION (06/07/2025 5:06 PM EDT) Anatomical Region Laterality Modality Other Narrative 06/07/2025 5:23 PM EDT PROCEDURE PHYSICIAN: Omar Cotto MD Clinical Presentation: 59 y.o. Female presents with a history of moderate CAD in the right coronary artery and a prior LAD stent with unstable angina Final Impression: 1) Successful stenting of the proximal RCA from 70%, with an iFR of 0.87, to 10% with a 4x12 Megatron drug-eluting stent 2) The previously placed stent in the mid-LAD is widely patent and the distal stenosis remains mild at 30% 3) Mild atherosclerotic plaquing in the circumflex coronary artery Recommendation: 1) Procedures Performed: coronary angiography, left heart catheterization, iFR determination RCA, PCI RCA, conscious sedation Procedure Description: The patient was brought to the cardiac catheterization lab in a fasting state. Informed written consent was obtained. Time-out was performed. she was prepped and draped in usual sterile fashion and was given Versed and fentanyl for sedation. 1% lidocaine was infiltrated over the left radial artery. A 6-English sheath was placed in left radial artery. Radial anti-vasospasm cocktail of verapamil 2.5 mg was administered through the sheath. All catheter exchanges were made over the Del Toro guidewire. Left heart catheterization and coronary angiography was performed with a JL4 and a JR4. At this time, it was apparent that the RCA had a moderate stenosis. Heparin anticoagulation was used and an iFR determined with an Omni wire ACT was maintained at >250 seconds. A 6 English JR4 guide was engaged to the RCA. A Omin guidewire was placed in the distal right coronary artery the lesion was treated with a NC Emerge 3x12 at 24 tereza and a 3x12 .35 NC at 20 TEREZA and a Synergy Megatron 4x12 drug-eluting stent was placed and post dilated x2 with a 4x8 mm NC. After treatment there was normal VIOLETA III flow throughout the RCA and its branches. All catheters and wires were removed. The sheath was removed and a pressure band was applied to obtain hemostasis. Specimens Removed: None Complications: None Hemodynamic Data: LV: 145/12 mmHg Aorta: 145/78/106 Coronary Angiography: Left main: Normal LAD: The previously placed stent in the mid-LAD is widely patent and the distal stenosis remains mild at 30% LCX: Mild atherosclerotic plaquing in the circumflex coronary artery RCA: Successful stenting of the proximal RCA from 70%, with an iFR of 0.87, to 10% with a 4x12 Megatron drug-eluting stent Study Details Abnormal stress ECG [R94.39] Unstable angina Bijan Licea MD CV CARDIAC CATH PROCEDURES Final Result * Anti-Xa (Heparin Level) (06/07/2025 10:20 AM EDT) [facility] Anti-Xa (Heparin) 0.53 0.3 - 0.7 IU/mL 06/07/2025 11:11 AM EDT [facility] ([facility]) Comment:Rivaroxaban and Apix aban will interfere with the anti Xa assay used to monitor UFH and LMWH. Blood Venous blood specimen / Unknown Venipuncture / Unknown 06/07/2025 10:20 AM EDT 06/07/2025 10:35 AM EDT Agus Ramirez MD LAB BLOOD ORDERABLES Final Re sult Performing Organization Address City/[facility]/ZIP Co de Phone Number [facility]) [address], [place] [id number] * High Sensitivity Troponin I (06/07/2025 4:52 AM EDT) [facility] High Sensitivity Troponin I 5 <15 ng/L 06/07/2025 5:51 AM EDT [facility] ([facility]) Blood Venous blood specimen / Unknown Venipuncture / Unknown 06/07/2025 4:52 AM EDT 06/07/2025 5:20 AM EDT Antonio Fuchs MD LAB BLOOD ORDERABLES Final Resul t [facility]) [address] [place] [address] * (ABNORMAL) aPTT - baseline (06/07/2025 4:52 AM EDT) aPTT 37.6(H) 25.0 - 35.0 Seconds 06/07/2025 5:50 AM EDT [facility] ([facility]) Comment:Clinical significanc e of the APTT is questionable in the presence of heparin. Blood Venous blood specimen / Unknown Venipuncture / Unknown 06/07/2025 4:52 AM EDT 06/07/2025 4:54 AM EDT Agus Ramirez MD LAB BLOOD ORDERABLES Final Re sult Performing Organization Address City/[facility]/ZIP Co de Phone Number [facility] ([facility]) [address], [place] [phone] * Platelet count (06/07/2025 4:52 AM EDT) Platelets 181 150 - 400 10*3/uL 06/07/2025 5:44 AM EDT [facility] ([facility]) Blood Venous blood specimen / Unknown Venipuncture / Unknown 06/07/2025 4:52 AM EDT 06/07/2025 5:20 AM EDT Agus Ramirez MD LAB BLOOD ORDERABLES Final Re sult Performing Organization Address [facility] Co de Phone Number [facility] ([facility]) [address], [place] [phone] * Lexiscan Stress Myocardial Perfusion Imaging (06/05/2025 3:58 PM EDT) Anatomical Region Laterality Modality Other Historical Provider CV STRESS PROCEDURES Kate l Result from Last 3 Months Insurance [address] [place] [address] [employer] Advance Directives * Full Code (Latest Code Status on File) Date Activated Date Inactivated Comments 06/07/2025 4:00 AM 06/08/2025 5:04 PM * Full Code Date Activated Date Inactivated Comments 07/11/2024 12:18 PM 07/12/2024 1:06 PM * Full Code Date Activated Date Inactivated Comments 06/30/2024 1:12 AM 07/01/2024 2:41 PM Care Teams Newspaper Carrier Relationship Specialty Start Date End Date Kendra Murillo MD [address] [facility] [address] [address] PCP - General 05/24/24
--- OUTSIDE RECORDS SUMMARY | 2025-07-08 10:01 | XMS_ITS | Encounter Summary ---
Author Organization [facility] tem Address [id number] [address] [place] [address] Care Team Providers Care Hospital Pharmacist Name Role Phone Carlito Murillo MD Primary Care Provider [phone] Reason for Referral * Diagnostic Imaging (Routine) - Pending Review Specialty Diagnoses / Procedures Referred By Contac t Referred To Contact Radiology Diagnoses Primary aldosteronism Procedures IR venography venous sample Feng Cloud MD [address] [place] [address] Phone: tel: fax: Referral ID Status Reason Start Date Expiration Date V isits Requested Visits Authorized [id number] Pending Review 01/23/2025 01/23/2026 1 1 Encounter Details Date Type Department Care Team (Latest Contact Info) Description 01/23/[address] [facility] Division of [facility] - Interventional Radiology [address] [place] [phone] Feng Cloud MD [address] [place] [address] Primary aldosteronism (CMS-HCC) (Primary Dx) Social History [...] advanced into the IVC and a 5 Guamanian vascular sheath was placed. Selective catheterization of [...] was achieved using a micropuncture set. A Kannact wire wasadvanced into the IVC and a 5 Guamanian vascular sheath was placed. Selectivecatheterization of the [...] unspecified documented in this encounter Care Teams Hospital Pharmacist Relationship Specialty Start Date End Date Carlito Murillo MD PCP - General Family Medicine 06/06/19 documented as of this encounter
--- OUTSIDE RECORDS SUMMARY | 2025-07-08 10:01 | XMS_ITS | Clinical Summary ---
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
--- NOTE | 2025-07-08 10:06 | ECG_ITS ---
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 Measurements Intervals Mclean Rate: 64 P: 50 TN: 166 QRS: 18 QRSD: 86 T: 77 QT: 376 QTc: 385 Interpretive Statements 1100 Sinus rhythm 4068 Nonspecific Twave abnormality 9130 borderline ECG Compared to ECG 06/06/2025 20:01:29 No significant changes Electronically Signed On 07-09-2025 17:41:33 EDT by GOMEZ JAY M.D.
--- NOTE | 2025-07-08 10:06 | XR_ITS ---
The [address] [address] Patient Name: MILAN RASMUSSEN MRN: [id number] date: 1965 Sex: F Assigned Patient Location: ER Current Patient Location: ER Accession/Order Number: [id number] Exam Date: 07/08/2025 10:53 Report Date: 07/08/2025 10:58 At the request of: JOSE BETANCUR MD Procedure: XR chest 1V Single view chest: CLINICAL HISTORY: Chest discomfort COMPARISON: Chest 06/06/2025 FINDINGS: The heart is normal in size. The lungs are clear. The pulmonary vasculature is normal. Mediastinum and hilar regions are unremarkable. No pleural effusions are seen. Visualized bones are intact. XR/XR chest 1V IMPRESSION: NO ACUTE PROCESS. Impression dictated by: Malik Gomez Jr., D.O. 07/08/2025 10:58 AM Dictation Location: [place] [address] Electronically authenticated by: [id number] Y Date: 07/08/2025 10:58
--- NOTE | 2025-07-08 10:07 | ED.GENADUL1 ---
HPI HPI - General Adult General Chief complaint: Chest Pain Stated complaint: CHEST DISCOMFORT Time Seen by Provider: 07/08/25 09:55 Source: patient Mode of arrival: walk-in Limitations: no limitations History of Present Illness HPI narrative: 60-year-old female presents for chest discomfort. She states she was anxious all last night and then about 8:00 this morning she developed this discomfort across her chest and it is in the back of her left shoulder as well. No trauma or unusual activity. She does not complain of fever cough or shortness of breath. She has a history of stents and had one placed about 2 weeks ago. She had another one placed a year ago. She did not have any nitroglycerin at home to take. Related Data Home Medications ?Medication ?Instructions ?Recorded ?Confirmed aspirin 81 mg capsule 81 mg PO DAILY 04/22/24 07/08/25 clopidogrel 75 mg tablet 75 mg PO DAILY 07/01/24 07/08/25 quetiapine 100 mg tablet (Seroquel) 50 mg PO .QHS 07/24/24 07/08/25 rosuvastatin 40 mg tablet 40 mg PO DAILY 07/24/24 07/08/25 isosorbide mononitrate 60 mg 30 mg PO DAILY 07/31/24 07/08/25 tablet,extended release 24 hr lorazepam 1 mg tablet (Ativan) 1 mg PO Q8H anxiety 07/31/24 07/08/25 magnesium oxide 400 mg (241.3 mg 400 mg PO .QD 05/10/25 07/08/25 magnesium) tablet carvedilol 25 mg tablet 25 mg PO BID 07/08/25 07/08/25 Previous Rx's ?Medication ?Instructions ?Recorded canagliflozin 300 mg tablet 300 mg PO DAILY #30 tabs 11/13/24 (Invokana) pantoprazole 40 mg tablet,delayed 40 mg PO BID #60 tabs 11/13/24 release (Protonix) spironolactone 25 mg tablet 12.5 mg (1/2 x 25 mg) PO QD #30 05/10/25 tabs Allergies Allergy/AdvReac Type Severity Reaction Status Date / Time lisinopril Allergy Severe Cough Verified 06/06/25 20:05 amlodipine Allergy Mild Headache Verified 06/06/25 20:05 alprazolam (From Xanax) AdvReac Severe Watery Eye Verified 06/06/25 20:05 Opioid HPI Opioid Management Most Recent Opioid Data: Last Pain Scale 6 Today, 10:27 Last ED Pain Assessment Today, 10:27 Last ORT Total Score 0 05/09/25, 22:54 Last ORT Risk Category Low Risk 05/09/25, 22:54 Review of Systems ROS Narrative A ten point review of systems is negative except as noted above. PFSH PFSH Medical History Elevated troponin ?R79.89 - Other specified abnormal findings of blood chemistry (ICD-10) Hypertensive emergency ?I16.1 - Hypertensive emergency (ICD-10) Acute non-ST elevation myocardial infarction (NSTEMI) ?I21.4 - Non-ST elevation (NSTEMI) myocardial infarction (ICD-10) Chest pain ?R07.9 - Chest pain, unspecified (ICD-10) CAD (coronary artery disease) ?I25.10 - Atherosclerotic heart disease of [place] coronary artery without angina pectoris (ICD-10) Hypertensive urgency ?I16.0 - Hypertensive urgency (ICD-10) HTN (hypertension) ?I10 - Essential (primary) hypertension (ICD-10) Hypertensive urgency ?I16.0 - Hypertensive urgency (ICD-10) Chest pain ?R07.9 - Chest pain, unspecified (ICD-10) Anxiety ?F41.9 - Anxiety disorder, unspecified (ICD-10) HTN (hypertension) ?I10 - Essential (primary) hypertension (ICD-10) Hypokalemia ?E87.6 - Hypokalemia (ICD-10) Hypertension, uncontrolled ?I10 - Essential (primary) hypertension (ICD-10) Chest pain ?R07.9 - Chest pain, unspecified (ICD-10) NSTEMI (non-ST elevated myocardial infarction) ?I21.4 - Non-ST elevation (NSTEMI) myocardial infarction (ICD-10) Shortness of breath ?R06.02 - Shortness of breath (ICD-10) Headache ?R51.9 - Headache, unspecified (ICD-10) Elevated d-dimer ?R79.89 - Other specified abnormal findings of blood chemistry (ICD-10) Hypertensive emergency ?I16.1 - Hypertensive emergency (ICD-10) Uncontrolled hypertension ?I10 - Essential (primary) hypertension (ICD-10) Irritable bowel syndrome ?K58.9 - Irritable bowel syndrome without diarrhea (ICD-10) H/O nephrolithotomy with removal of calculi ?Z98.890 - Other specified postprocedural states (ICD-10) ?Z87.442 - Personal history of urinary calculi (ICD-10) Kidney stone ?N20.0 - Calculus of kidney (ICD-10) Sepsis ?A41.9 - Sepsis, unspecified organism (ICD-10) H/O angiography ?Z92.89 - Personal history of other medical treatment (ICD-10) Lung nodule ?R91.1 - Solitary pulmonary nodule (ICD-10) Anxiety ?F41.9 - Anxiety disorder, unspecified (ICD-10) HTN (hypertension) ?I10 - Essential (primary) hypertension (ICD-10) Diabetes ?E11.9 - Type 2 diabetes mellitus without complications (ICD-10) TIA (transient ischemic attack) ?G45.9 - Transient cerebral ischemic attack, unspecified (ICD-10) Surgical History H/O heart artery stent ?Z95.5 - Presence of coronary angioplasty implant and graft (ICD-10) History of appendectomy ?Z90.49 - Acquired absence of other specified parts of digestive tract (ICD-10) H/O tubal ligation ?Z98.51 - Tubal ligation status (ICD-10) History of cholecystectomy ?Z90.49 - Acquired absence of other specified parts of digestive tract (ICD-10) Family History Mother Family history of cancer Father MVA (motor vehicle accident) Brother Family history of stroke Social History Within the past year, how often did you have a drink containing alcohol: never Within the past year, how often did you have six or more drinks on one occasion: never Score interpretation: A score less than 3 is consistent with normal alcohol consumption. Smoking status: Former smoker Second hand tobacco smoke exposure: No Non-prescribed substance use: denies use Previous occupational history: no Known occupational exposures/hazards: No Highest level of school completed/degree received: high school graduate Do you want help with school or training: No Are you now , , , , never or living with a partner: In a typical week, how many times do you talk on the telephone with family, friends, or neighbors: 3 or more times per week How often do you get together with friends or relatives: 3 or more times per week How often do you attend synagogue or alevism services: never Do you belong to any clubs or organizations such as synagogue groups unions, fraternal or athletic groups, or school groups: no Total score: 1 Score interpretation: A score of less than or equal to 1 indicates the most socially isolated. Little interest or pleasure in doing things: not at all Feeling down, depressed, or hopeless: not at all Feel stressed/tense/nervous/anxious/difficulty sleeping: not at all Do you think of yourself as: straight/heterosexual Gender Identity: female Exam Narrative Exam Narrative: Nurses note and vital signs reviewed and patient is not hypoxic. General: The patient appears well and in no apparent distress. Patient is resting comfortably on cart. Skin: Warm, dry, no pallor noted. There is no rash noted. Head: Normocephalic, atraumatic Eye: Normal conjunctiva, no drainage Ears, Nose, Mouth, and Throat: oral mucosa is moist. Nares patent. Cardiovascular: Regular Rate and Rhythm Respiratory: Patient is in no distress, no accessory muscle use, lungs are clear to auscultation, no wheezing, rales or rhonchi Back: non-tender GI: Soft and nontender Musculoskeletal: The patient has no evidence of calf tenderness, no pitting edema, symmetrical pulses noted bilaterally Neurological: A&O, normal speech Psychiatric: Cooperative Constitutional Vital Signs, click to edit/add: Last Vital Signs Temp 98.0 F 07/08/25 09:58 Pulse 63 07/08/25 11:10 Resp 19 07/08/25 11:10 BP 129/58 07/08/25 11:07 Pulse Ox 93 L 07/08/25 11:10 O2 Del Method Room Air 07/08/25 10:26 Course Vital Signs Vital signs: Vital Signs Temperature 98.0 F 07/08/25 09:58 Pulse Rate 63 07/08/25 09:58 Respiratory Rate 18 07/08/25 09:58 Blood Pressure 158/70 H 07/08/25 09:58 Pulse Oximetry 96 07/08/25 09:58 Oxygen Delivery Method Room Air 07/08/25 09:58 Temperature 98.0 F 07/08/25 09:58 Pulse Rate 63 07/08/25 11:10 Respiratory Rate 19 07/08/25 11:10 Blood Pressure 129/58 07/08/25 11:07 Pulse Oximetry 93 L 07/08/25 11:10 Oxygen Delivery Method Room Air 07/08/25 10:26 Medical Decision Making MDM Narrative Medical decision making narrative: Her symptoms have completely resolved except she still feels a little bit anxious. 2 sets of troponin are negative. There is no clinical evidence of cardiac ischemia and the patient is being discharged home. Treatment diagnosis and follow-up were discussed with the patient. Differential Diagnosis Differential Diagnosis: STEMI, NSTEMI, anxiety, chest wall pain Lab Data Lab results reviewed: Yes I reviewed the patient's lab results Labs: Lab Results 07/08/25 07/08/25 Range/Units 10:12 10:58 WBC 5.6 (4.0-11.0) 10^3/uL RBC 4.48 (4.20-5.40) 10^6/uL Hgb 12.3 (12.0-16.0) g/dL Hct 38.1 (36.0-48.0) % MCV 85.0 (81.0-99.0) fL MCH 27.5 (26.7-34.0) pg MCHC 32.3 (29.9-35.2) g/dL RDW 15.7 H (11.0-15.0) % Plt Count 199 (150-450) 10^3/uL MPV 10.1 (9.5-13.5) fL Neut % (Auto) 54.2 (43.0-75.0) % Lymph % (Auto) 32.1 (20.5-60.0) % [place] % (Auto) 9.6 (1.7-12.0) % Eos % (Auto) 3.0 (0.9-7.0) % Baso % (Auto) 0.7 (0.2-2.0) % Neut # (Auto) 3.1 (1.4-6.5) 10^3/uL Lymph # (Auto) 1.8 (1.2-3.8) 10^3/uL [place] # (Auto) 0.5 (0.3-0.8) 10^3/uL Eos # (Auto) 0.2 (0.0-0.7) 10^3/uL Baso # (Auto) 0.0 (0.0-0.1) 10^3/uL Abs Immat Gran (auto) 0.02 (0.00-0.03) 10^3/uL Imm/Tot Granulo (auto) 0.4 (0.0-0.5) % Sodium 143 (136-145) mmol/L Potassium 4.5 (3.5-5.1) mmol/L Chloride 106 (98-107) mmol/L Carbon Dioxide 29.5 (21.0-32.0) mmol/L Anion Gap 12.0 BUN 21.0 H (7.0-18.0) mg/dL Creatinine 1.22 H (0.55-1.02) mg/dL Est GFR ( Amer) 54 L (>=60 mL/min/1.73m^2) Est GFR (Non-Af Amer) 45 L (>=60 mL/min/1.73m^2) BUN/Creatinine Ratio 17.2 Glucose 111 H (74-106) mg/dL Calcium 9.2 (8.5-10.1) mg/dL Troponin I High Sens 7.1 5.3 (4.0-51.3) pg/mL Imaging Data Chest x-ray: Radiologist's impression: ITS Impressions Chest X-Ray 07/08/25 10:06 IMPRESSION: NO ACUTE PROCESS. Impression dictated by: Malik Gomez Jr., D.O. 07/08/2025 10:58 AM Dictation Location: [place] [address] Electronically authenticated by: [id number] Y Date: 07/08/2025 10:58 ECG Data Attestation: I personally reviewed and interpreted this ECG as follows: (EKG on my interpretation shows normal sinus rhythm with rate of 64 no acute change she has flat T waves in V5 and V6.) Discharge Plan Discharge Chief Complaint: Chest Pain Clinical Impression: Atypical chest pain, Anxiety Patient Disposition: Home, Self-Care Time of Disposition Decision: 11:28 Condition: Good Mode of Transportation: Private Vehicle Prescriptions / Home Meds: No Action aspirin 81 mg capsule 81 mg PO DAILY rosuvastatin 40 mg tablet 40 mg PO DAILY quetiapine [Seroquel] 100 mg tablet 50 mg PO .QHS Rx Instructions: AT HS isosorbide mononitrate 60 mg Tablet Extended Release 24 Hr 30 mg PO DAILY lorazepam [Ativan] 1 mg tablet 1 mg PO Q8H Invokana 300 mg tablet 300 mg PO DAILY Qty: 30 11RF pantoprazole [Protonix] 40 mg tablet,delayed release (DR/EC) 40 mg PO BID Qty: 60 11RF magnesium oxide 400 mg (241.3 mg magnesium) tablet 400 mg PO .QD spironolactone 25 mg Tablet 12.5 mg PO QD Qty: 30 11RF carvedilol 25 mg Tablet 25 mg PO BID clopidogrel 75 mg tablet 75 mg PO DAILY Print Language: Croatian Instructions: Chest Pain (ED), Anxiety (ED) Referrals: Carlito Murillo MD [Primary Care Provider, Family Practice] - 1 week
[2025-07-08 10:20] LABS: Hematocrit 38.1 % (36.0-48.0); Hemoglobin 12.3 g/dL (12.0-16.0); Immature Granulocytes Abs Auto 0.02 10^3/uL (0.00-0.03); Immature Granulocytes Pct Auto 0.4 % (0.0-0.5); Lymphocytes Absolute Auto 1.8 10^3/uL (1.2-3.8); Mean Corpuscular HGB Conc 32.3 g/dL (29.9-35.2); Mean Corpuscular Hemoglobin 27.5 pg (26.7-34.0); Mean Corpuscular Volume 85.0 fL (81.0-99.0); Platelet Count 199 10^3/uL (150-450); Red Blood Count 4.48 10^6/uL (4.20-5.40); White Blood Count 5.6 10^3/uL (4.0-11.0)
[2025-07-08] MEDS: ASPIRIN 81 MG TAB.CHEW 324 MG PO (10:25)
[2025-07-08] MEDS: NITROGLYCERIN 0.4 MG BOTTLE SL (10:26)
[2025-07-08 10:36] LABS: Anion Gap 12.0; Blood Urea Nitrogen 21.0 mg/dL (7.0-18.0); Calcium 9.2 mg/dL (8.5-10.1); Carbon Dioxide 29.5 mmol/L (21.0-32.0); Chloride 106 mmol/L (98-107); Estimated GFR (African America 54 (>=60 mL/min/1.73m^2); Estimated GFR (Non-African Ame 45 (>=60 mL/min/1.73m^2); Glucose 111 mg/dL (74-106); Potassium 4.5 mmol/L (3.5-5.1); Sodium 143 mmol/L (136-145)
[2025-07-08] MEDS: ACETAMINOPHEN 325 MG TABLET 650 MG PO (10:41)
== END 2025-07-08 12:04 | disposition home or self-care (01) ==
PROVIDERS: Emergency Provider Emergency Medicine; PCP Family Medicine
DX: R07.89 Other chest pain (principal); F41.9 Anxiety disorder, unspecified; M25.512 Pain in left shoulder
CPT/HCPCS: 36415; 71045; 80048; 84484; 85025; 93005; 99285

== ENCOUNTER 2025-07-24 23:08 | Emergency (ER) | payer MEDICAID, SELFPAY ==
[2025-07-24 23:16] VITALS: BP 163/85; PULSE 60; TEMP 36.7; O2SAT 98; BMI 35.3
--- OUTSIDE RECORDS SUMMARY | 2025-07-24 23:18 | XMS_ITS | CCD ---
Author Organization [facility] Care Team Providers Care Document Review Attorney Name Role Phone Kendra Moran Primary Care Physician MARKER ., DR DEVINE Attending Unavailable MARKER [...] Unavailable NILL ., DR SALOMON Consulting Unavailable DIPTICRISTELGUILLE Consulting Unavailable MICHAEL II, BASILIA Consulting Unavailable [...] GARDNER Primary Care Unavailable HOY ., DR GARDENR Admitting Unavailable HOY ., DR GARDNER Attending Unavailable HOY ., DR GARDNER Consulting Unavailable HOY ., DR GARDNER Primary Care Unavailable VIMAL, DR ADELIA Medrano Consulting Unavailable FENG CHRISTIE Attending Unavailable FENG CHRISTIE Referring Unavailable KENDRA MORAN Primary Care Unavailable GAGE NÚÑEZ Admitting Unavailable Kendra Moran MD Primary Care Provider [phone] Kendra Moran MD Primary Care Provider [phone] Roxanne Jackson APRN Attending Provider Elie Jackson DO Attending Provider Hoy, Kendra M Primary Care Unavailable Elie [...] Admitting Unavailable WELCH, JESUS ASH Attending Unavailable JAMEYUKAGOMEZ RODRIGUEZ Attending Unavailable FENG CHRISTIE Referring Unavailable OMBALLI, RICHA Referring Unavailable OMBALLI, RICHA Referring Unavailable BIJAN LICEA Attending Unavailable GOMEZ SPENCE Attending Unavailable FENG CHRISTIE Attending Unavailable MACMESERET SNELL Referring Unavailable OMBALLI, RICHA Attending Unavailable MOUKAGOMEZ RODRIGUEZ Attending Unavailable MOUKAGOMEZ RODRIGUEZ Attending Unavailable JOSE BETANCUR Referring Unavailable HORANI, NONA Admitting Unavailable TAO NASSAR Attending Unavailable HERMINIA JULIAN Attending Unavailable STEPHEN, SAMAR Referring Unavailable HORANI, NONA Referring Unavailable HORANI, NONA Referring Unavailable PIRKLFELECIA Referring Unavailable HORANI, NONA Referring Unavailable HERMINIA JULIAN Referring Unavailable FENG CHRISTIE Attending Unavailable LARRYBALLRICHA Butts Attending Unavailable FENG CHRISTIE Attending Unavailable Umm LANDON Attending Unavailable Hoy, Kendra Referring Unavailable Allergies Allergy Classification Reported Allergen(s) Allergy Type Date of Onset Reaction(s) Facility (5 sources) ALPRAZolam; Translations: [ALPRAZOLAM] Drug Allergy 4 Abnormal Behavior [facility] Repository (9 sources) amLODIPine; Translations: [AMLODIPINE] Drug Allergy 4 Other (See Comments) [facility] (9 sources) Lisinopril; Translations: [LISINOPRIL] Drug Allergy 4 Cough [facility] (4 sources) LORazepam; Translations: [lorazepam] Drug Allergy 5 Unknown Reaction [facility] (1 source) No Known Medication Allergies; Translations: [No Known Medication Allergies] Propensity to adverse reactions (disorder) [facility] Repository Medications Current Medications Medication Drug Class(es) [...] Coronary arteriosclerosis; Translations: [Atherosclerotic heart disease of [place] coronary artery without angina pectoris] Onset: 3 [...] Onset: 06-29-2024 Episodic Other aftercare (1 source) 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; Translations: [FPC CURRENT USE OF ASPIRIN] Onset: 11-26-2022 Episodic Other aftercare (1 source) 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 36on 06-08-2025 36 Spoke to daughter shae mata stated she has everthing taken care of she didn't need to talk to us. Daughter states Badillo had a cath with a stent placement. Nothing needed at this time Normal [facility] 36 Please call pt regarding stress test. Daughter Rosita [phone]. Normal [facility] BASIC METABOLIC PANELon 05-22 Anion gap [Moles/Vol] 9 mmol/L Normal - [facility] Comment on above: Performed By: #### L [id number] #### [facility] ([facility]) [address] [place] [address] Calcium [Mass/Vol] 8.1 mg/dL Low 8.6-10.3 [facility] Comment on above: Performed By: #### L [id number] #### [facility] ([facility]) [address] [place] [address] Chloride [Moles/Vol] 111 mmol/L High 98-107 [facility] Comment on above: Performed By: #### L [id number] #### [facility] [address] [place] [address] CO2 [Moles/Vol] 24 mmol/L Normal 21-[address] [facility] Comment on above: Performed By: #### L [id number] #### [facility] ([facility]) [address] [place] [address] Creatinine [Mass/Vol] 0.90 mg/dL Normal 0.60-1.20 [facility] Comment on above: Performed By: #### L [id number] #### [facility] ([facility] [address] [place] [address] GLOMERULAR FILTRATION RATE ML/MIN/1.73 SQ M.PREDICTED 73.2 mL/min/1.73m*2 Normal >60.0 [facility] Comment on above: Result Comment: [facility]???s estimated glomerular filtration rate (eGFR) will [...] #### L [id number] #### [facility] [address] [place] [address] Glucose [Mass/Vol] 87 mg/dL Normal 70-100 [facility] Comment on above: Performed By: #### L [id number] #### [facility] [address] [place] [address] Potassium [Moles/Vol] 3.7 mmol/L Normal 3.5-5.1 [facility] Comment on above: Performed By: #### L [id number] #### [facility] [address] [place] [address] Sodium [Moles/Vol] 140 mmol/L Normal 136-145 [facility] Comment on above: Performed By: #### L [id number] #### [facility] [address] [place] [address] Urea nitrogen [Mass/Vol] 13 mg/dL Normal 7-25 [facility] Comment on above: Performed By: #### L [id number] #### [facility] ([facility]) [address] [place] [address] UREA NITROGEN/CREATININE (MASS RATIO) IN SER/PLAS 14.[address] [facility] Comment on above: Performed By: #### L [id number] #### [facility] [address] [place] [address] CBCon 06-08-2025 Erythrocyte distribution width (RBC) [Ratio] 16.5 % High 11.5-15.0 [facility] Comment on above: Performed By: #### L [id number] ####[facility] [place] [address] ERYTHROCYTE MEAN CORPUSCULAR HEMOGLOBIN CONCENTRATION (G/DL) BY AUTOMATED 31.8 g/dL Low 32.0-35.0 [facility] Comment on above: Performed By: #### L [id number] ####[facility] [place] [address] Hematocrit (Bld) [Volume fraction] 35.2 % Low 36.0-45.0 [facility] Comment on above: Performed By: #### L [id number] ####[facility] ([facility])[address] [place] [address] Hemoglobin (Bld) [Mass/Vol] 11.2 g/dL Low 12.0-15.0 [facility] Comment on above: Performed By: #### L [id number] ####[facility] [place] [address] MCH (RBC) [Entitic mass] 26.9 pg Low 27.0-33.0 [facility] Comment on above: Performed By: #### L [id number] ####[facility] ([facility])[address] [place] [address] MCV (RBC) [Entitic vol] 84.6 fL Normal 82.0-98.0 [facility] Comment on above: Performed By: #### L [id number] ####[facility] ([facility])[address] [place] [address] PLATELETS (10*3/UL) IN BLOOD AUTOMATED COUNT 172 10*3/uL Normal 150-400 [facility] Comment on above: Performed By: #### L [id number] ####[facility] ([facility])[address] [place] [address] RBC (Bld) [#/Vol] 4.16 10*6/uL Normal 3.80-5.00 [facility] Comment on above: Performed By: #### L [id number] ####[facility] ([facility])[address] [place] [address] WBC (Bld) [#/Vol] 5.53 10*3/uL Normal 4.00-10.60 [facility] Comment on above: Performed By: #### L [id number] ####[facility] [place] [address] LIPID PANELon 06-08-2025 CHOL/HDL 2.3 mg/dL Normal [facility] Comment on above: Performed By: #### L [id number] ####[facility] ([facility])[address] [place] [address] Cholesterol [Mass/Vol] 95 mg/dL Low 120-200 [facility] Comment on above: Performed By: #### L [id number] ####[facility] [facility] [address] Magnesium [Mass/Vol] 61 mg/dL Normal <150 [facility] Comment on above: Result Comment: TRIG LYCERIDE REFERENCE RANGE: 20 YEARS AND OLDER CARDIOVASCULAR RISK LESS THAN 150 mg/dL LOW RISK 150 TO 199 mg/dL BORDERLINE RISK 200 mg/dL AND GREATER HIGH RISK Performed By: #### L [id number] ####[facility] ([facility])[address] [facility] [place] [address] Magnesium [Mass/Vol] 42 mg/dL Normal 0-160 [facility] Comment on above: Performed By: #### L [id number] ####[facility] ([facility])[address] [facility] [place] [address] Magnesium [Mass/Vol] 41 mg/dL Normal 23-92 [facility] Comment on above: Performed By: #### L [id number] ####[facility] ([facility])[address] [facility] [address] NON HDL CHOL. (LDL+VLDL) [address] [facility] Comment on above: Performed By: #### L [id number] ####[facility] ([facility])[address] [facility] [address] TOTAL VLDL-C 12 mg/dL Normal 0-40 [facility] Comment on above: Performed By: #### L [id number] ####[facility] ([facility])[address] [facility] [place] [address] NURSNOTEon 06-08-2025 NURSNOTE Discharge instructio ns given to patient and family. Patient left via wheelchair, private vehicle. Normal [facility] POCT GLUCOSE METER UNSOLICIT ED RESULTSon 06-08-2025 Glucose [Mass/Vol] 135 mg/dL High 70-105 [facility] Comment on above: Order Comment: Waive d Testing in the ED is performed under the ED CLIA certificate #[id number]. Result Comment: imcf add2 Performed By: #### L [id number] ####[facility] ([facility])[address] [facility] [place] [address] Glucose [Mass/Vol] 89 mg/dL Normal 70-105 [facility] Comment on above: Order Comment: Waive d Testing in the ED is performed under the ED CLIA certificate #[id number]. Result Comment: ndub ois3 Performed By: #### L [id number] ####[facility] ([facility])[address] [place] [address] ANTI-XA (HEPARIN LEVEL)on HEPARIN UNFRACTIONATED (U/ML) IN PPP BY CHROMOGENIC METHOD 0.53 IU/mL Normal 0.3-0.7 [facility] Comment on above: Order Comment: Check anti-Xa level every 6 hours while on heparin infusion, or per protocol. Result Comment: Radha roxaban and Apixaban will interfere with the anti Xa assay used to monitor UFH and LMWH. Performed By: #### L [id number] #### [facility] ([facility]) [address] [place] [address] APTTon 06-07-2025 ACTIVATED PARTIAL THROMBOPLASTIN TIME IN PPP BY COAGULATION ASSAY 37.6 Seconds High 25.0-35.0 [facility] Comment on above: Order Comment: Basel ine aPTT before initiating heparin infusion. Result Comment: Clin ical significance of the APTT is questionable in the presence of heparin. Performed By: #### L [id number] ####[facility] ([facility])[address] [place] [address] BASIC METABOLIC PANELon 05-22 Anion gap [Moles/Vol] 10 mmol/L Normal 7-20 [facility] Comment on above: Performed By: #### L [id number] ####[facility] ([facility])[address] [facility] [address] Calcium [Mass/Vol] 8.6 mg/dL Normal 8.6-10.3 [facility] Comment on above: Performed By: #### L [id number] ####[facility] ([facility])[address] [place] [address] Chloride [Moles/Vol] 110 mmol/L High 98-107 [facility] Comment on above: Performed By: #### L [id number] ####[facility] ([facility])[address] [place] [address] CO2 [Moles/Vol] 26 mmol/L Normal 21-[address] [facility] Comment on above: Performed By: #### L [id number] ####[facility] ([facility])[address] [place] [address] Creatinine [Mass/Vol] 1.07 mg/dL Normal 0.60-1.20 [facility] Comment on above: Performed By: #### L [id number] ####[facility] ([facility])[address] [place] [address] GLOMERULAR FILTRATION RATE ML/MIN/1.73 SQ M.PREDICTED 59.5 mL/min/1.73m*2 Low >60.0 [facility] Comment on above: Result Comment: [facility]???s estimated glomerular filtration rate (eGFR) will [...] #### L AB15 ####[facility] ([facility])[address] [place] [address] Glucose [Mass/Vol] 95 mg/dL Normal 70-100 [facility] Comment on above: Performed By: #### L [id number] ####[facility] ([facility])[address] [place] [address] Potassium [Moles/Vol] 3.8 mmol/L Normal 3.5-5.1 [facility] Comment on above: Performed By: #### L [id number] ####[facility] ([facility])[address] [place] [address] Sodium [Moles/Vol] 142 mmol/L Normal 136-145 [facility] Comment on above: Performed By: #### L [id number] ####[facility] [place] [address] Urea nitrogen [Mass/Vol] 16 mg/dL Normal 7-25 [facility] Comment on above: Performed By: #### L [id number] ####[facility] ([facility])[address] [place] [address] UREA NITROGEN/CREATININE (MASS RATIO) IN SER/PLAS 15.[address] [facility] Comment on above: Performed By: #### L [id number] ####[facility] ([facility])[address] [facility] [place] [address] CBCon 06-07-2025 Erythrocyte distribution width (RBC) [Ratio] 16.6 % High 11.5-15.0 [facility] Comment on above: Performed By: #### L [id number] #### [facility] ([facility]) [address] [place] [address] ERYTHROCYTE MEAN CORPUSCULAR HEMOGLOBIN CONCENTRATION (G/DL) BY AUTOMATED 31.4 g/dL Low 32.0-35.0 [facility] Comment on above: Performed By: #### L [id number] #### [facility] [address] [place] [address] Hematocrit (Bld) [Volume fraction] 36.6 % Normal 36.0-45.0 [facility] Comment on above: Performed By: #### L [id number] #### [facility] [address] [place] [address] Hemoglobin (Bld) [Mass/Vol] 11.5 g/dL Low 12.0-15.0 [facility] Comment on above: Performed By: #### L [id number] #### [facility] ([facility]) [address] [place] [address] MCH (RBC) [Entitic mass] 26.6 pg Low 27.0-33.0 [facility] Comment on above: Performed By: #### L [id number] #### [facility] ([facility]) [address] [place] [address] MCV (RBC) [Entitic vol] 84.5 fL Normal 82.0-98.0 [facility] Comment on above: Performed By: #### L [id number] #### [facility] ([facility]) [address] [place] [address] PLATELETS (10*3/UL) IN BLOOD AUTOMATED COUNT 186 10*3/uL Normal 150-400 [facility] Comment on above: Performed By: #### L [id number] #### [facility] ([facility]) [address] [place] [address] RBC (Bld) [#/Vol] 4.33 10*6/uL Normal 3.80-5.00 [facility] Comment on above: Performed By: #### L [id number] #### [facility] ([facility]) [address] [place] [address] WBC (Bld) [#/Vol] 4.78 10*3/uL Normal 4.00-10.60 [facility] Comment on above: Performed By: #### L [id number] #### [facility] ([facility]) [address] [place] [address] CONSULTon 06-07-2025 CONSULT -- Attestation with edits [...] personal documentation from me. Bijan Licea MD, [facility] Cardiology Consult Note Reason for Consult: Positive stress test HPI: Aby Madrigal is a 59 y.o. female with a past medical history of hyperaldosteronism, hypertension, TIA, panic attacks and sleep apnea, prior history of smoking. Patient transferred to [facility] from [facility]. She presented to outside hospital with 1 [...] outpatient but never done. She came to [facility] on 06/04/2025 with chest pain she describes [...] event of chest pain. On presentation to [facility], labs revealed troponin of 5. And [...] medical history of Abnormal ECG, Diabetes mellitus ([facility]), Hyperlipidemia, Hypertension, Obstructive sleep apnea, Panic attacks, and Stroke ([facility]). Surgical History She has a past surgical [...] Recorded Vit (more content not included)... Normal [facility] HIGH SENSITIVITY TROPONIN Io n 06-07-2025 HS TROPONIN I (NG/L) 5 ng/L Normal <15 [facility] Comment on above: Performed By: #### L [id number] #### [facility] ([facility]) [address] [place] [address] HPon 06-07-2025 HP H&P reviewed. The patient was examined and there are changes to the H&P. Mrs. Madrigal continues to have chest pain at rest. Plan coronary angiography. Normal 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 Ash administered Fentanyl 75 mcg at 0221, Nitroglycerin was not given due to bradycardia. Chest pain has resolved since Fentanyl was given per patient. Patient arrived with IV Heparin running at 18/units/kg, IV temporarily discontinued awaiting orders. Normal [facility] PLATELET COUNTon 06-07-2025 PLATELETS (10*3/UL) IN BLOOD AUTOMATED COUNT 181 10*3/uL Normal 150-400 [facility] Comment on above: Performed By: #### L [id number] ####[facility] ([facility])[address] [place] [address] POCT GLUCOSE METER UNSOLICIT ED RESULTSon 06-07-2025 Glucose [Mass/Vol] 129 mg/dL High 70-105 [facility] Comment on above: Order Comment: Waive d Testing in the ED is performed under the ED CLIA certificate #[id number]. Result Comment: amcn eal2 Performed By: #### L [id number] #### [facility] ([facility]) [address] [place] [address] Glucose [Mass/Vol] 97 mg/dL Normal 70-105 [facility] Comment on above: Order Comment: Waive d Testing in the ED is performed under the ED CLIA certificate #[id number]. Result Comment: ndub ois3 Performed By: #### L [id number] #### [facility] ([facility]) [address] [place] [address] Glucose [Mass/Vol] 97 mg/dL Normal 70-105 [facility] Comment on above: Order Comment: Waive d Testing in the ED is performed under the ED CLIA certificate #[id number]. Result Comment: ndub ois3 Performed By: #### L [id number] #### [facility] ([facility]) [address] [place] [address] Orders Onlyon 06-05-2025 Orders Only [id number] Aby Madrigal 1965 F Date Provider Department Center 06/05/2025 [id number], HISTORICAL CARD [place] Family History Problem Relation Age of Onset Lung cancer Mother Accidental Father Lung cancer Sister Family Status - Relation Status Age at Mother Father Sister Brother Alive Normal [facility] X-ray reportOrdered By: Asad White on 05-21-2025 Study report [facility] [address] [place] [id number] XRay Report Signed Patient: Aby Madrigal MR#: [id number] : 1965 Acct:[id number] Age/Sex: 59 / F ADM Date: 5 Loc: [facility] Room: Type: [facility] Attending Dr: Elie Jackson DO Copies to: Elie Jackson DO~ Ordering Provider: Elie Jackson DO Date of Service: 05/21/25 XR/XR knee LT 4V*: M25.562 - Pain in left knee ([id number]) XR/XR knee RT 2V: M25.562 - Pain [...] Marcell White DO 05/21/251858 Signed By: 05/21/251900 [facility] XR knee LT 4V*on 05-21-2025 XR knee LT 4V* [facility] [address] [place] [address] XRay Report Signed Patient: Aby Madrigal MR#: [id number] : 1965 Acct:[id number] Age/Sex: 59 / F ADM Date: 05/21/25 Loc: [facility] Room: Type: [facility] Attending Dr: Elie Jackson DO Copies to: Elie Jackson DO Ordering Provider: Elie Jackson DO Date of Service: 05/21/25 XR/XR knee LT 4V*: M25.562 - Pain in left knee ([id number]) XR/XR knee RT 2V: M25.562 - Pain [...] DO 05/21/251858 Signed By: 05/21/251900 Normal [facility] 05-14-2025 [facility] Subjective Aby Madrigal is a 59 y.o. year old female patient being seen for a follow up s/p [facility] ER visit. Patient states she was [...] troponin Hypomagnesemia NSTEMI (non-ST elevated myocardial infarction) ([facility]) Hypokalemia Coronary artery disease involving [place] coronary artery of [place] heart without angina pectoris Depression, major, severe recurrence ([facility]) Panic disorder Primary aldosteronism Resistant hypertension Hypertension [...] on 01/31/2025 she was evaluated at the [facility] because of chest pain. Workup was [...] Normocephalic and (more content not included)... Normal [facility] Office Visiton 05-14-2025 Follow-up visit [id number] Aby Madrigal 1965 F Date Provider Department Center 05/14/2025 GOMEZ KENDALL RIAZ [place] Family History Problem Relation Age of Onset Lung cancer Mother Accidental Father Lung cancer Sister Family Status - Relation Status Age at Mother Father Sister Brother Alive Level of Service:09460 ID OFFICE/OUTPATIENT ESTABLISHED MOD MDM 30 MIN [facility] 3704-23-2025 37 1. Change carvedilol to 1.5 tablets twice daily. 2. Start taking spironolactone half tablet once daily. 3. You can stop clopidogrel in July 2025. [facility] Office Visiton 04-23-2025 Follow-up visit [id number] Aby Madrigal 1965 Date Provider Department Center 04/23/2025 GOMEZ KENDALL RIAZ [place] Family History Problem Relation Age of Onset Lung cancer Mother Accidental Father Lung cancer Sister Family Status - Relation Status Age at Mother Father Sister Brother Alive Level of Service:13610 ID OFFICE/OUTPATIENT ESTABLISHED MOD MDM 30 MIN [facility] Orders Onlyon 04-20-2025 Orders Only [id number] Aby Madrigal 1965 Date Provider Department Center 04/20/2025 [id number], [facility] RIAZ [facility] Family History Problem Relation Age of Onset Lung cancer Mother Accidental Father Lung cancer Sister Family Status - Relation Status Age at Mother Father Sister Brother Alive [facility] 3704-10-2025 37 It was good to [...] see where your potassium levels are. Normal [facility] Follow-Upon 04-10-2025 Follow-Up [id number] Aby Madrigal 1965 F Date Provider Department Center 04/10/2025 [id number], [facility] Family History Problem Relation Age of Onset Lung cancer Mother Accidental Father Lung cancer Sister Family Status - Relation Status Age at Mother Father Sister Brother Alive Level of Service:90933 ID OFFICE/OUTPATIENT ESTABLISHED MOD MDM 30 MIN Reason for Visit and Comments: Adrenal Problem [420] - Follow up Normal [facility] Influenza virus B Ag [Prescaroline ce] in Upper respiratory specimen by Rapid immunoassayon 03-03-2025 FLUBV Ag IA.rapid Ql (Nph) Negative [facility] No Panel Informationon 03-03 Influenza Type A (Rapid) Negative [facility] POC SARS CoV-2 Antigen Negative [facility] 29on 03-02-2025 29 Addended by: FENG CHRISTIE on: 03/02/2025 09:34 AM Modules accepted: Orders [facility] 36on 03-02-2025 36 Called patient over the phone at 9:10 AM - I have reviewed results from adrenal venous sampling performed on 02/07/2025 at [facility]. Patient met criteria for selectivity index and [...] primary aldosteronism will proceed to surgical evaluation [facility] Orders Onlyon 03-02-2025 Orders Only [id number] Aby Madrigal 1965 F Date Provider Department Center 03/02/2025 [id number], [facility] ENDOCR [facility] Family History Problem Relation Age of Onset Lung cancer Mother Accidental Father Lung cancer Sister Family Status - Relation Status Age at Mother Father Sister Brother Alive [facility] 36on 02-28-2025 36 [facility] Please call patient and let her know that I've requested the test results from [facility] ([facility]) Ill be able to discuss the results with her tomorrow Thank you [facility] 36on 02-26-2025 36 Patient called regarding IR venography she had done 02/07. Requesting to discuss results and how she should follow up per Dr. Christie [facility] Office Visiton 02-26-2025 Follow-up visit [id number] Aby Madrigal 1965 F Date Provider Department Center 02/26/2025 Octavio-GOMEZ [facility] Family History Problem Relation Age of Onset Lung cancer Mother Accidental Father Lung cancer Sister Family Status - Relation Status Age at Mother Father Sister Brother Alive Level of Service:19548 ID OFFICE/OUTPATIENT ESTABLISHED LOW MDM [address] [facility] Telephoneon 02-26-2025 Telephone [id number] Aby Madrigal 1965 F Provider Department Center 02/26/2025 JESSY MATSON [facility] NEPH [facility] Family History Problem Relation Age of Onset Lung cancer Mother Accidental Father Lung cancer Sister Family Status - Relation Status Age at Mother Father Sister Brother Alive [facility] Cortisol [Mass/Vol]on 2024 CORTISOL 5.2 ug/dL Normal [facility] Comment on above: Result Comment: Due to the diurnal variation of cortisol levels in normal subjects, all cortisol measurements should be referenced to the time of day of sample collection. AM Cortisol Age>=6 6.7-22.4 ug/dL PM Cortisol Age>=6 <10 ug/dL Performed By: #### 2 143-6 #### [facility] ([id number]) [address], [address] [place] [address] CORTISOL 5.2 ug/dL Normal [facility] Comment on above: Result Comment: Due to the diurnal variation of cortisol levels in normal subjects, all cortisol measurements should be referenced to the time of day of sample collection. AM Cortisol Age>=6 6.7-22.4 ug/dL PM Cortisol Age>=6 <10 ug/dL Performed By: #### 2 143-6 #### [facility] ([id number]) [address], [address] [place] [address] CORTISOL 10.9 ug/dL Normal [facility] Comment on above: Result Comment: Due to the diurnal variation of cortisol levels in normal subjects, all cortisol measurements should be referenced to the time of day of sample collection. AM Cortisol Age>=6 6.7-22.4 ug/dL PM Cortisol Age>=6 <10 ug/dL Performed By: #### 2 143-6 #### [facility] ([id number]) [address], [address] [place] [address] CORTISOL 11.1 ug/dL Normal [facility] Comment on above: Result Comment: Due to the diurnal variation of cortisol levels in normal subjects, all cortisol measurements should be referenced to the time of day of sample collection. AM Cortisol Age>=6 6.7-22.4 ug/dL PM Cortisol Age>=6 <10 ug/dL Performed By: #### 2 143-6 #### [facility] ([id number]) [address], [address] [place] [address] CORTISOL 5.7 ug/dL Normal [facility] Comment on above: Result Comment: Due to the diurnal variation of cortisol levels in normal subjects, all cortisol measurements should be referenced to the time of day of sample collection. AM Cortisol Age>=6 6.7-22.4 ug/dL PM Cortisol Age>=6 <10 ug/dL Performed By: #### 2 143-6 #### [facility] ([id number]) [address], [address] [place] [address] CORTISOL 14.3 ug/dL Normal [facility] Comment on above: Result Comment: Due to the diurnal variation of cortisol levels in normal subjects, all cortisol measurements should be referenced to the time of day of sample collection. AM Cortisol Age>=6 6.7-22.4 ug/dL PM Cortisol Age>=6 <10 ug/dL Performed By: #### 2 143-6 #### [facility] ([id number]) [address], [address] [address] [facility] ORDERon 025 TEST NAME AIVC INFERIOR VENA CAVA Normal [facility] Comment on above: Result Comment: Cody ected on 02/07 AT 1204: Previously reported as INFERIOR VENA CAVA TEST RESULT SEE COMMENTS 02/10/2025 12:12 AM Normal [facility] Comment on above: Result Comment: NOTE Test Result Flag Unit RefValue Aldosterone, IVC <4.0 ng/dL Not applicable ADDITIONAL INFORMATION This test was developed and its performance characteristics determined by [facility] in a manner consistent with CLIA requirements. This test has not been cleared or approved by the U.S. Food and Drug Administration. Test Performed by: [facility] [place] [address] Manufacturing Engineering Intern: Shawanda Jimenez Ph.D.; CLIA# [id number] Result Comment: NOTE Test Result Flag Unit RefValue Aldosterone, LAV 32 ng/dL Not applicable ADDITIONAL INFORMATION This test was developed and its performance characteristics determined by [facility] in a manner consistent with CLIA requirements. This test has not been cleared or approved by the U.S. Food and Drug Administration. Test Performed by: [facility] [place] [address] Manufacturing Engineering Intern: Shawanda Jimenez Ph.D.; CLIA# [id number] Result Comment: NOTE Test Result Flag Unit RefValue Aldosterone, LAV 28 ng/dL Not applicable ADDITIONAL INFORMATION This test was developed and its performance characteristics determined by [facility] in a manner consistent with CLIA requirements. This test has not been cleared or approved by the U.S. Food and Drug Administration. Test Performed by: [facility] [place] [address] Manufacturing Engineering Intern: Shawanda Jimenez Ph.D.; CLIA# [id number] Result Comment: NOTE Test Result Flag Unit RefValue Aldosterone, KELLEY <4.0 ng/dL Not applicable ADDITIONAL INFORMATION This test was developed and its performance characteristics determined by [facility] in a manner consistent with CLIA requirements. This test has not been cleared or approved by the U.S. Food and Drug Administration. Test Performed by: [facility] [place] [address] Manufacturing Engineering Intern: Shawanda Jimenez Ph.D.; CLIA# [id number] Result Comment: NOTE Test Result Flag Unit RefValue Aldosterone, KELLEY 74 ng/dL Not applicable ADDITIONAL INFORMATION This test was developed and its performance characteristics determined by [facility] in a manner consistent with CLIA requirements. This test has not been cleared or approved by the U.S. Food and Drug Administration. Test Performed by: [facility] [place] [address] Manufacturing Engineering Intern: Shawanda Jimenez Ph.D.; CLIA# [id number] TEST NAME ALAV LEFT ADRENAL Normal [facility] TEST NAME ALAV LEFT ADRENAL Normal [facility] TEST NAME ARAV RIGHT ADRENAL Normal [facility] TEST NAME ARAV RIGHT ADRENAL Normal [facility] Telephoneon 01-18-2025 Telephone [id number] Aby Madrigal 1965 F Date Provider Department Center 01/18/2025 [id number] BOWMAN [facility] END[facility]CR [facility] Family History Problem Relation Age of Onset Lung cancer Mother Accidental Father Lung cancer Sister Family Status - Relation Status Age at Mother Father Sister Brother Alive [facility] Follow-Upon 01-09-2025 Follow-Up [id number] Aby Madrigal 1965 F Date Provider Department [place] 01/09/2025 [id number] BOWMAN [facility] Family History Problem Relation Age of Onset Lung cancer Mother No Known Problems Father Lung cancer Sister Family Status - Relation Status Age at Mother Father Sister Level of Service:71419 ID OFFICE/OUTPATIENT ESTABLISHED LOW MDM 20 MIN [facility] 36on 01-04-2025 36 Called patient's daughter [...] time. Melanie thanked me for the call [facility] 3601-03-2025 36 Voicemail. Patient's daughter called in, she thought Dr. Christie was going to order testing where they go in through the groin to see which kidney is dumping off excess hormones, she would like a call back. [facility] Telephoneon 01-03-2025 Telephone [id number] Aby Madrigal 1965 F Date Provider Department Center 01/03/2025 [id number] BOWMAN [facility] Family History Problem Relation Age of Onset Lung cancer Mother No Known Problems Father Lung cancer Sister Family Status - Relation Status Age at Mother Father Sister Normal [facility] ALDOSTERONEon 01-02-2025 ALDOSTERONE (NG/DL) IN SER/PLAS 7.3 ng/dL Normal [facility] Comment on above: Result Comment: INTE [...] reference intervals for this test in the [employer] Test Directory ([place]). Performed By: [employer] [address] [place] [address] Instructional Supervisor: Navneet Simeon MD, PhD CLIA Number: [id number] Performed By: #### L [id number] #### [facility] ([facility]) [address] [place] [address] ALDOSTERONE (NG/DL) IN SER/PLAS 14.2 ng/dL Normal [facility] Comment on above: Result Comment: INTE [...] reference intervals for this test in the [employer] Test Directory ([employer]). Performed By: [employer] [address] [place] [address] Instructional Supervisor: Navneet Simeon MD, PhD CLIA Number: [id number] Performed By: #### L [id number] #### [facility] ([facility]) [address] [place] [address] CORTISOLon 01-02-2025 CORTISOL (UG/DL) IN SER/PLAS 3.6 ug/dL Normal 0-9 [facility] Comment on above: Performed By: #### L [id number] #### [facility] ([facility]) [address] [place] [address] CORTISOL (UG/DL) IN SER/PLAS 9.0 ug/dL Normal 6-23 [facility] Comment on above: Performed By: #### L [id number] #### [facility] ([facility]) [address] [place] [address] NURSNOTEon 01-02-2025 NURSNOTE T-6=0220, at this ti me VS taken, IV [...] pt up to BR and released. Normal [facility] POTASSIUMon 01-02-2025 Potassium [Moles/Vol] 3.9 mmol/L Normal 3.5-5.1 [facility] Comment on above: Performed By: #### L [id number] #### [facility] ([facility]) [address] [place] [address] Potassium [Moles/Vol] 4.0 mmol/L Normal 3.5-5.1 [facility] Comment on above: Performed By: #### L [id number] ####[facility] ([facility])[address] [place] [address] RENIN ACTIVITYon 01-02-2025 RENIN ACTIVITY <0.[address] [facility] Comment on above: Result Comment: INTE [...] developed and its performance characteristics determined by [employer]. It has not been cleared or approved by the US Food and Drug Administration. This test was performed in a CLIA certified laboratory and is intended for clinical purposes. Performed By: [employer] [address] [place] [address], [place] [address] Instructional Supervisor: Navneet Simeon MD, PhD CLIA Number: [id number] Performed By: #### L [id number] #### [facility] ([facility]) [address] [place] [address] RENIN ACTIVITY <0.[address] [facility] Comment on above: Result Comment: INTE [...] developed and its performance characteristics determined by [employer]. It has not been cleared or approved by the US Food and Drug Administration. This test was performed in a CLIA certified laboratory and is intended for clinical purposes. Performed By: [employer] [address] [place] [address] Instructional Supervisor: Navneet Simeon MD, PhD CLIA Number: [id number] Performed By: #### L [id number] #### [facility] ([facility]) [address] [place] [address] Orders Only01-01-2025 Orders Only [id number] Strausbaugh,Aby S 1965 F Date Provider Department Center 01/01/2025 [id number] GRIDER [facility] 2A Second Fl Family History Problem Relation Age of Onset Lung cancer Mother No Known Problems Father Lung cancer Sister Family Status - Relation Status Age at Mother Father Sister Normal [facility] Orders Only [id number] Strausbaugh,Aby S 1965 F Date Provider Department Center 01/01/2025 1759-GIBSON GARCIA [facility] 2A Second Fl Family History Problem Relation Age of Onset Lung cancer Mother No Known Problems Father Lung cancer Sister Family Status - Relation Status Age at Mother Father Sister Normal [facility] Orders Onlyon 12-26-2024 Orders Only [id number] Strausbaugh,Bay S 1965 F Date Provider Department Center 12/26/2024 [id number] BLACKMAN [facility] 2A Second Fl Family History Problem Relation Age of Onset Lung cancer Mother No Known Problems Father Lung cancer Sister Family Status - Relation Status Age at Mother Father Sister Normal [facility] Orders Only [id number] Strausbaugh,Aby S 1965 F Date Provider Department Center 12/26/2024 1883-USHA DURON [facility] 2A Second Fl Family History Problem Relation Age of Onset Lung cancer Mother No Known Problems Father Lung cancer Sister Family Status - Relation Status Age at Mother Father Sister Normal [facility] Orders Only [id number] Strausbaugh,Aby S 1965 F Date Provider Department Center 12/26/2024 [id number] CORTEZ [facility] 2A Second Fl Family History Problem Relation Age of Onset Lung cancer Mother No Known Problems Father Lung cancer Sister Family Status - Relation Status Age at Mother Father Sister [facility] 36on 12-25-2024 36 Patient has not hear d from the [facility] about scheduling this, she is going to reach out to them directly, but could someone reach out to the [facility] about what's going on? [facility] Orders Onlyon 12-25-2024 Orders Only [id number] Strabaugh,Aby S 1965 F Date Provider Department Center 12/25/2024 190-JOSE PRICE [facility] Family History Problem Relation Age of Onset Lung cancer Mother No Known Problems Father Lung cancer Sister Family Status - Relation Status Age at Mother Father Sister [facility] Orders Only [id number] Stradaniela,Aby S 1965 F Date Provider Department Center 12/25/2024 GIBSON CISNEROS [facility] 2A Second Fl Family History Problem Relation Age of Onset Lung cancer Mother No Known Problems Father Lung cancer Sister Family Status - Relation Status Age at Mother Father Sister [facility] 36on 12-12-2024 36 Antonio I signed the orders for saline infusion test back on Oct 12 (its a Therapy Plan) Can we call the [facility] and ask what more do they need to get the patient scheduled thanks [facility] 36on 12-08-2024 36 Patient had not hear d from the [facility] about scheduling a Saline Infusion Test, when I look into the chart, I cannot find any orders [facility] Telephoneon 12-08-2024 Telephone [id number] Strababebe,Aby S 1965 F Date Provider Department Center 12/08/2024 [id number] [facility]ANG [facility] ENDOCR [facility] Family History Problem Relation Age of Onset Lung cancer Mother No Known Problems Father Lung cancer Sister Family Status - Relation Status Age at Mother Father Sister [facility] Abstracton 11-21-2024 Abstract [id number] Aby Madrigal 1965 F Date Provider Department Center 11/21/2024 [id number]-FGHDARA CARTER [facility] ONC [facility] Family History Problem Relation Age of Onset Lung cancer Mother No Known Problems Father Lung cancer Sister Family Status - Relation Status Age at Mother Father Sister Normal [facility] CT CHEST WO IV CONTRASTon CT [...] Marlon Green MD. [address] [facility] Office Visiton 10-26-2024 Follow-up visit [id number] Aby Madrigal 1965 F Date Provider Department Center 10/26/2024 Julio C-RICHA VIRAMONTES [facility] ONC [facility] Family History Problem Relation Age of Onset Lung cancer Mother No Known Problems Father Lung cancer Sister Family Status - Relation Status Age at Mother Father Sister Level of Service:74873 ID OFFICE/OUTPATIENT ESTABLISHED SF MDM 10 MIN () Reason for Visit and Comments: Follow-up [[id number]] - F/U to review CT scan that was done today. 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 To confirm if you have primary aldosteronism were going to do something called a saline infusion test at the [facility] they will be in contact with you likely within the next week. This is a 2-hour test in which we infused saline 2 L and assess any changes in your aldosterone level. This is in a monitored setting so you will not be alone. [facility] Follow-Upon 10-03-2024 Follow-Up [id number] Aby Madrigal S 1965 F Date Provider Department Center 10/03/2024 [id number]-SMISW, [facility] ENDOCR [facility] Family History Problem Relation Age of Onset Lung cancer Mother No Known Problems Father Lung cancer Sister Family Status - Relation Status Age at Mother Father Sister Level of Service:66962 ID OFFICE/OUTPATIENT ESTABLISHED MOD MDM 30 MIN Reason for Visit and Comments: Follow-up [[id number]] [facility] Office Visiton 09-04-2024 Follow-up visit [id number] Aby Madrigal 1965 F Date Provider Department Center 09/04/2024 GOMEZ KENDALL RIAZ [facility] Family History Problem Relation Age of Onset Lung cancer Mother No Known Problems Father Lung cancer Sister Family Status - Relation Status Age at Mother Father Sister Level of Service:48096 ID OFFICE/OUTPATIENT ESTABLISHED MOD MDM 30 MIN [facility] ALDOSTERONEon 08-29-2024 ALDOSTERONE (NG/DL) IN SER/PLAS 13.0 ng/dL [facility] Comment on above: Result Comment: INTE [...] reference intervals for this test in the [employer] [facility] Test Directory ([place]). Performed By: [employer] [address] [place] [address] Instructional Supervisor: Navneet Simeon MD, PhD CLIA Number: [id number] Performed By: #### L [id number] #### [facility] ([facility]) [address] [place] [address] Ron 08-29-2024 ALT [Catalytic activity/Vol] 25 U/L Normal 7-52 [facility] Comment on above: Performed By: #### L [id number] #### [facility] ([facility]) [address] [place] [address] Riki 08-29-2024 AST [Catalytic activity/Vol] 21 U/L Normal 13-39 [facility] Comment on above: Performed By: #### L [id number] #### [facility] ([facility]) [address] [place] [address] BASIC METABOLIC PANELon 10-0 Anion gap [Moles/Vol] 12 mmol/L Normal 7-20 [facility] Comment on above: Performed By: #### L [id number] #### [facility] ([facility]) [address] [place] [address] Calcium [Mass/Vol] 9.3 mg/dL Normal 8.6-10.3 [facility] Comment on above: Performed By: #### L [id number] #### [facility] ([facility]) [address] [place] [address] Chloride [Moles/Vol] 105 mmol/L Normal 98-107 [facility] Comment on above: Performed By: #### L [id number] #### [facility] ([facility]) [address] [place] [address] CO2 [Moles/Vol] 28 mmol/L Normal 21-[address] [facility] Comment on above: Performed By: #### L [id number] #### [facility] ([facility]) [address] [place] [address] Creatinine [Mass/Vol] 0.95 mg/dL Normal 0.60-1.20 [facility] Comment on above: Performed By: #### L [id number] #### [facility] [address] [place] [address] GLOMERULAR FILTRATION RATE ML/MIN/1.73 SQ M.PREDICTED 68.6 mL/min/1.73m*2 Normal >60.0 [facility] Comment on above: Result Comment: [facility]???s estimated glomerular filtration rate (eGFR) will [...] L AB557 #### [facility] ([facility]) [address] [place] [address] Glucose [Mass/Vol] 99 mg/dL Normal 70-100 [facility] Comment on above: Performed By: #### L [id number] #### [facility] ([facility]) [address] [place] [address] Potassium [Moles/Vol] 3.6 mmol/L Normal 3.5-5.1 [facility] Comment on above: Performed By: #### L [id number] #### [facility] ([facility]) [address] [place] [address] Sodium [Moles/Vol] 141 mmol/L Normal 136-145 [facility] Comment on above: Performed By: #### L [id number] #### [facility] ([facility]) [address] [place] [address] Urea nitrogen [Mass/Vol] 19 mg/dL Normal 7-25 [facility] Comment on above: Performed By: #### L [id number] #### [facility] ([facility]) [address] [place] [address] UREA NITROGEN/CREATININE (MASS RATIO) IN SER/PLAS 20.[address] [facility] Comment on above: Performed By: #### L [id number] #### [facility] ([facility]) [address] [place] [address] CORTISOLon 08-29-2024 CORTISOL (UG/DL) IN SER/PLAS 6.1 ug/dL Normal 0-9 [facility] Comment on above: Performed By: #### L [id number] #### [facility] ([facility]) [address] [place] [address] CT ABDOMEN PELVIS W AND WO I [...] Guidelines, Radiology 2017. Electronically signed: Marybeth Bryan. Not Vldtd Invalid Interpretation Code [facility] DEXAMETHASONE LEVELon 2023 DEXAMETHASONE <50.[address] [facility] Comment on above: Order Comment: Waive d Testing in the ED is performed under the ED CLIA certificate #[id number]. Result Comment: INTE RPRETIVE INFORMATION: Dexamethasone, Serum [...] developed and its performance characteristics determined by [employer]. It has not been cleared or approved by the US Food and Drug Administration. This test was performed in a CLIA certified laboratory and is intended for clinical purposes. Performed By: [employer] [facility] [address] [place] [address] Instructional Supervisor: Nvaneet Simeon MD, PhD CLIA Number: [id number] Performed By: #### L [id number] #### [facility] ([facility]) [address] [place] [address] LIPID PANELon 08-29-2024 CHOL/HDL 2.4 mg/dL Normal [facility] [facility] Comment on above: Performed By: #### L [id number] #### [facility] [address] [place] [address] Cholesterol [Mass/Vol] 80 mg/dL Low 120-200 [facility] Comment on above: Performed By: #### L [id number] #### [facility] [address] [place] [address] Magnesium [Mass/Vol] 96 mg/dL Normal 40-149 [facility] Comment on above: Result Comment: TRIG LYCERIDE REFERENCE RANGE: 20 YEARS AND OLDER CARDIOVASCULAR RISK LESS THAN 150 mg/dL LOW RISK 150 TO 199 mg/dL BORDERLINE RISK 200 mg/dL AND GREATER HIGH RISK Performed By: #### L [id number] #### [facility] (BEAKER) [address] [place] [address] Magnesium [Mass/Vol] 28 mg/dL Normal 0-160 [facility] Comment on above: Performed By: #### L [id number] #### [facility] ([facility]AKER) [address] [place] [address] Magnesium [Mass/Vol] 33 mg/dL Normal 23-92 [facility] Comment on above: Performed By: #### L [id number] #### [facility] ([facility]) [address] [place] [address] NON HDL CHOL. (LDL+VLDL) [address] [facility] Comment on above: Performed By: #### L [id number] #### [facility] ([facility]) [address] [place] [address] TOTAL VLDL-C 19 mg/dL Normal 0-40 [facility] Comment on above: Performed By: #### L [id number] #### [facility] ([facility]) [address] [place] [address] Labon 08-29-2024 Lab [id number] Aby Madrigal Cristina 1965 F Date Provider Department Center 08/29/2024 2245-[facility] OPD LAB RESOURCE [facility] OPD [facility] Family History Problem Relation Age of Onset Lung cancer Mother No Known Problems Father Lung cancer Sister Family Status - Relation Status Age at Mother Father Sister [facility] RENIN ACTIVITYon 08-29-2024 RENIN ACTIVITY <0.[address] [facility] Comment on above: Result Comment: INTE RPRETIVE INFORMATION: Renin Activity Adult, Normal sodium diet: Supine ................. 0.2-1.6 ng/mL/hr Upright ................ 0.5-4.0 ng/mL/hr Children, Normal sodium diet, Supine: [place] (1-7 days) ..... 2.0-35.0 ng/mL/hr Cord blood [...] developed and its performance characteristics determined by [employer]. It has not been cleared or approved by the US Food and Drug Administration. This test was performed in a CLIA certified laboratory and is intended for clinical purposes. Performed By: [employer] [address] [place] [address] Instructional Supervisor: Navneet Simeon MD, PhD CLIA Number: [id number] Performed By: #### L [id number] #### [facility] (BEAKER) [address] [place] [address] 36on 08-10-2024 36 Updated patient on Nodify blood test results and plan for f/u CT and appt scheduled for 10/26/24. Normal [facility] Letter (Out)on 08-09-2024 Letter (Out) [id number] Aby Madrigal 1965 F Date Provider Department Center 08/09/2024 None-None [facility] ADMIT None Family History Problem Relation Age of Onset Lung cancer Mother No Known Problems Father Lung cancer Sister Family Status - Relation Status Age at Mother Father Sister Normal [facility] 36on 08-08-2024 36 Called patient over the phone at 9:17 AM - discussed recent lab results from [facility] (including M cortisol of 1.7 after dex, renin undetectable, aldosterone level 4.4) - ruled out autonomous cortisol production - she has stopped spironolactone for about 2 weeks now, continue to hold this until our next appt and we will reassess ARR. We will meet again on Oct 03 She thanked me for the call Normal [facility] Orders Onlyon 08-08-2024 Orders Only [id number] Strausbaugh,Aby S 1965 F Date Provider Department Center 08/08/2024 RICHA MERINO ONC NICKI Family History Problem Relation Age of Onset Lung cancer Mother No Known Problems Father Lung cancer Sister Family Status - Relation Status Age at Mother Father Sister Normal [facility] Telephoneon 08-08-2024 Telephone [id number] Strausbaugh,Aby S 1965 F Date Provider Department Center 08/08/2024 [facility] Family History Problem Relation Age of Onset Lung cancer Mother No Known Problems Father Lung cancer Sister Family Status - Relation Status Age at Mother Father Sister Normal 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 CT CHEST 04-21-24- PET 06-21-24 Films requested 07-18-24 HAVING HARD TIME GETTING FILMS FROM [facility] AGAIN. Ginny at [facility] ([phone] direct line) is working on sending them. CHECK [facility] FOR FILMS PLEASE Normal [facility] 37on 07-18-2024 37 It was great [...] lab work done at one of these [facility] Lab Sites The results will then come straight to me I appreciate it [facility] [address] Hours Wednesday - Wednesday 8 AM - 4PM (Closed 12 - 12:30 PM daily) Phone: [facility] [address] Hours: Wednesday 6 AM - 5 PM Saturday: 7 AM - 2 PM Phone: [address] [place] Hours: Wednesday - Wednesday 7 AM - 3:30 PM Phone: [facility] [address] Hours: Wednesday - Wednesday 7 AM - 5:30 PM Phone: Kayy Maurer [facility] [address] Hours: Wednesday 8 AM - 4:30 PM Phone: Normal [facility] EDNURSon 08-27-2024 EDNURS ADR and relevant inf o reported to [facility] in pharmacy d/t safety net being down. Viet Kelly RN 07/18/[address] [facility] EDNURS SENT FROM MD OFFICE RE: LOW BP; RECENT DC FROM [facility] FOR SAME Normal [facility] EDPROVon 07-18-2024 EDPROV HPI Chief Complaint [...] new meds yesterday. 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 [facility] Office Visiton 07-18-2024 Follow-up visit [id number] Aby Madrigal 1965 Date Provider Department Center 07/18/2024 [id number] [facility] Family History Problem Relation Age of Onset Lung cancer Mother No Known Problems Father Lung cancer Sister Family Status - Relation Status Age at Mother Father Sister Level of Service:[id number] ID OFFICE/OUTPATIENT NEW MODERATE MDM 45 MINUTES Reason for Visit and Comments: Nodules [Other] [facility] Follow-up visit [id number] Aby Madrigal 1965 Date Provider Department Center 07/18/2024 [id number], [facility] Family History Problem Relation Age of Onset Lung cancer Mother No Known Problems Father Lung cancer Sister Family Status - Relation Status Age at Mother Father Sister Level of Service:NOCHG 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 I am calling you to [...] No Patient Name Aby Madrigal Date 07/13/24 [facility] Telephoneon 07-13-2024 Telephone [id number] Aby Madrigal 1965 F Date Provider Department Center 07/13/2024 GINNY MALONEY [facility] C Family History Problem Relation Age of Onset Lung cancer Mother No Known Problems Father Lung cancer Sister Family Status - Relation Status Age at Mother Father Sister Reason for Visit and Comments: Hospital Follow-up [832] Normal [facility] 30on 07-12-2024 30 The patient is [...] to address these barriers include . Normal [facility] ANTI-XA (HEPARIN LEVEL)on HEPARIN UNFRACTIONATED (U/ML) IN PPP BY CHROMOGENIC METHOD 0.60 IU/mL Normal 0.3-0.7 [facility] Comment on above: Order Comment: Check anti-Xa level every 6 hours while on heparin infusion, or per protocol. Result Comment: Radha roxaban and Apixaban will interfere with the anti Xa assay used to monitor UFH and LMWH. Performed By: #### L [id number] #### [facility] ([facility]) [address] [place] [address] BASIC METABOLIC PANELon 06-23 Anion gap [Moles/Vol] 10 mmol/L Normal 7-20 [facility] Comment on above: Performed By: #### L [id number] #### [facility] ([facility]) [address] [place] [address] Calcium [Mass/Vol] 8.8 mg/dL Normal 8.6-10.3 [facility] Comment on above: Performed By: #### L [id number] #### [facility] ([facility]) [address] [place] [address] Chloride [Moles/Vol] 108 mmol/L High 98-107 [facility] Comment on above: Performed By: #### L [id number] #### [facility] [address] [place] [address] CO2 [Moles/Vol] 27 mmol/L Normal 21-[address] [facility] Comment on above: Performed By: #### L [id number] #### [facility] [address] [place] [address] Creatinine [Mass/Vol] 0.89 mg/dL Normal 0.60-1.20 [facility] Comment on above: Performed By: #### L [id number] #### [facility] [address] [place] [address] GLOMERULAR FILTRATION RATE ML/MIN/1.73 SQ M.PREDICTED 74.2 mL/min/1.73m*2 Normal >60.0 [facility] Comment on above: Result Comment: [facility]???s estimated glomerular filtration rate (eGFR) will [...] group of individuals. Performed By: #### L [id number] #### [facility] ([facility]) [address] [place] [address] Glucose [Mass/Vol] 109 mg/dL High 70-100 [facility] Comment on above: Performed By: #### L [id number] #### [facility] ([facility]) [address] [place] [address] Potassium [Moles/Vol] 3.4 mmol/L Low 3.5-5.1 [facility] Comment on above: Performed By: #### L [id number] #### [facility] ([facility]) [address] [place] [address] Sodium [Moles/Vol] 142 mmol/L Normal 136-145 [facility] Comment on above: Performed By: #### L [id number] #### [facility] ([facility]) [address] [place] [address] Urea nitrogen [Mass/Vol] 11 mg/dL Normal 7-25 [facility] Comment on above: Performed By: #### L [id number] #### [facility] ([facility]) [address] [place] [address] UREA NITROGEN/CREATININE (MASS RATIO) IN SER/PLAS 12.[address] [facility] Comment on above: Performed By: #### L [id number] #### [facility] [address] [place] [address] CBC WITH AUTO DIFFERENTIALon 07-12-2024 Basophils (Bld) [#/Vol] 0.04 10*3/uL Normal 0.00-0.20 [facility] Comment on above: Performed By: #### L [id number] ####[facility] ([facility])[address] [place] [address] Basophils/100 WBC (Bld) 0.6 % Normal 0.0-1.0 [facility] Comment on above: Performed By: #### L [id number] ####[facility] ([facility])[address] [place] [address] Eosinophils (Bld) [#/Vol] 0.22 10*3/uL Normal 0.00-0.50 [facility] Comment on above: Performed By: #### L [id number] ####[facility] ([facility])[address] [place] [address] Eosinophils/100 WBC (Bld) 3.5 % Normal 0.0-6.0 [facility] Comment on above: Performed By: #### L [id number] ####[facility] ([facility])[address] [place] [address] Erythrocyte distribution width (RBC) [Ratio] 14.5 % Normal 11.5-15.0 [facility] Comment on above: Performed By: #### L [id number] ####[facility] ([facility])[address] [place] [address] ERYTHROCYTE MEAN CORPUSCULAR HEMOGLOBIN CONCENTRATION (G/DL) BY AUTOMATED 32.7 g/dL Normal 32.0-35.0 [facility] Comment on above: Performed By: #### L [id number] ####[facility] ([facility])[address] [place] [address] Hematocrit (Bld) [Volume fraction] 34.2 % Low 36.0-48.0 [facility] Comment on above: Performed By: #### L [id number] ####[facility] ([facility]AKER)[address] [place] [address] Hemoglobin (Bld) [Mass/Vol] 11.2 g/dL Low 12.0-15.0 [facility] Comment on above: Performed By: #### L [id number] ####[facility] ([facility])[address] [place] [address] Immature granulocytes (Bld) [#/Vol] 0.01 10*3/uL Normal 0.00-0.20 [facility] Comment on above: Performed By: #### L [id number] ####[facility] ([facility])[address] [place] [address] Immature granulocytes/100 WBC (Bld) 0.2 % Normal 0.0-1.0 [facility] Comment on above: Performed By: #### L [id number] ####[facility] ([facility]ER)[address] [place] [address] Lymphocytes (Bld) [#/Vol] 2.37 10*3/uL Normal 1.20-4.00 [facility] Comment on above: Performed By: #### L [id number] ####[facility] ([facility])[address] [place] [address] Lymphocytes/100 WBC (Bld) 37.8 % Normal 20.0-45.0 [facility] Comment on above: Performed By: #### L [id number] ####[facility] ([facility])[address] [place] [address] MCH (RBC) [Entitic mass] 27.4 pg Normal 27.0-33.0 [facility] Comment on above: Performed By: #### L [id number] ####[facility] ([facility])[address] [place] [address] MCV (RBC) [Entitic vol] 83.6 fL Normal 82.0-98.0 [facility] Comment on above: Performed By: #### L [id number] ####[facility] ([facility])[address] [place] [address] Monocytes (Bld) [#/Vol] 0.43 10*3/uL Normal 0.10-1.00 [facility] Comment on above: Performed By: #### L [id number] ####[facility] ([facility]ER)[address] [place] [address] Monocytes/100 WBC (Bld) 6.9 % Normal 5.0-12.0 [facility] Comment on above: Performed By: #### L [id number] ####[facility] ([facility])[address] [place] [address] Neutrophils (Bld) [#/Vol] 3.20 10*3/uL Normal 1.60-7.60 [facility] Comment on above: Performed By: #### L [id number] ####[facility] ([facility])[address] [place] [address] Neutrophils/100 WBC (Bld) 51.0 % Normal 40.0-72.0 [facility] Comment on above: Performed By: #### L [id number] ####[facility] ([facility]ER)[address] [place] [address] NRBC (PER 100 WBCS) BY AUTOMATED COUNT 0.0 % Normal 0 [facility] Comment on above: Performed By: #### L [id number] ####[facility] ([facility])[address] [place] [address] PLATELETS (10*3/UL) IN BLOOD AUTOMATED COUNT 223 10*3/uL Normal 150-400 [facility] Comment on above: Performed By: #### L [id number] ####[facility] ([facility])[address] [place] [address] RBC (Bld) [#/Vol] 4.09 10*6/uL Normal 3.80-5.00 [facility] Comment on above: Performed By: #### L [id number] ####[facility] ([facility])[address] [place] [address] WBC (Bld) [#/Vol] 6.27 10*3/uL Normal 4.00-10.60 [facility] Comment on above: Performed By: #### L [id number] ####[facility] ([facility])[address] [place] [address] MAGNESIUMon 07-12-2024 Magnesium [Mass/Vol] 1.7 mg/dL Low 1.9-2.7 [facility] Comment on above: Performed By: #### L [id number] #### [facility] ([facility]) [address] [place] [address] POCT GLUCOSE METER UNSOLICIT ED RESULTSon 07-12-2024 Glucose [Mass/Vol] 102 mg/dL Normal 70-105 [facility] Comment on above: Order Comment: Waive d Testing in the ED is performed under the ED CLIA certificate #[id number]. Result Comment: brad [email or web address] Performed By: #### L [id number] #### [facility] ([facility]) [address] [place] [address] TROPONIN Ion 07-12-2024 Troponin I.cardiac [Mass/Vol] 0.01 ng/mL Normal 0.00-0.04 [facility] Comment on above: Performed By: #### L [id number] #### [facility] ([facility]) [address] [place] [address] 30on 07-11-2024 30 The patient is Moderately [...] and maintained or improved Outcome: Progressing Normal [facility] 30 The patient is Moderately Stable - Low risk of patient condition declining or worsening The patient's goals for the shift include no chest pain The clinical goals for the shift include stable vital/no chest pain Over the shift, the patient did not make progress toward the following goals. Barriers to progression include . Recommendations to address these barriers include . Normal [facility] ALDOSTERONEon 07-11-2024 ALDOSTERONE (NG/DL) IN SER/PLAS 4.9 ng/dL Normal [facility] Comment on above: Result Comment: INTE [...] reference intervals for this test in the [facility] Test Directory ([place]). Performed By: [employer] [address] [place] [address] Instructional Supervisor: Navneet Simeon MD, PhD CLIA Number: [id number] Performed By: #### L [id number] #### [facility] ([facility]) [address] [place] [address] ANTI-XA (HEPARIN LEVEL)on HEPARIN UNFRACTIONATED (U/ML) IN PPP BY CHROMOGENIC METHOD 0.42 IU/mL Normal 0.3-0.7 [facility] Comment on above: Order Comment: Check anti-Xa level every 6 hours while on heparin infusion, or per protocol. Result Comment: Radha roxaban and Apixaban will interfere with the anti Xa assay used to monitor UFH and LMWH. Performed By: #### L [id number] ####[facility] (BEAKER)[address] [place] [address] HEPARIN UNFRACTIONATED (U/ML) IN PPP BY CHROMOGENIC METHOD 0.20 IU/mL Low 0.3-0.7 [facility] Comment on above: Order Comment: Check anti-Xa level every 6 hours while on heparin infusion, or per protocol. Result Comment: Radha roxaban and Apixaban will interfere with the anti Xa assay used to monitor UFH and LMWH. Performed By: #### L [id number] #### [facility] ([facility]) [address] [place] [address] APTTon 07-11-2024 ACTIVATED PARTIAL THROMBOPLASTIN TIME IN PPP BY COAGULATION ASSAY 43.0 Seconds High 25.0-35.0 [facility] Comment on above: Result Comment: Clin ical significance of the APTT is questionable in the presence of heparin. Performed By: #### L [id number] #### [facility] ([facility]) [address] [place] [address] BASIC METABOLIC PANELon 06-23 Anion gap [Moles/Vol] 9 mmol/L Normal 7-20 [facility] Comment on above: Performed By: #### L [id number] #### [facility] [address] [place] [address] Calcium [Mass/Vol] 8.8 mg/dL Normal 8.6-10.3 [facility] Comment on above: Performed By: #### L [id number] #### [facility] [address] [place] [address] Chloride [Moles/Vol] 108 mmol/L High 98-107 [facility] Comment on above: Performed By: #### L [id number] #### [facility] [address] [place] [address] CO2 [Moles/Vol] 28 mmol/L Normal 21-[address] [facility] Comment on above: Performed By: #### L [id number] #### [facility] ([facility]) [address] [place] [address] Creatinine [Mass/Vol] 1.09 mg/dL Normal 0.60-1.20 [facility] Comment on above: Performed By: #### L [id number] #### [facility] [address] [place] [address] GLOMERULAR FILTRATION RATE ML/MIN/1.73 SQ M.PREDICTED 58.2 mL/min/1.73m*2 Low >60.0 [facility] Comment on above: Result Comment: [facility]???s estimated glomerular filtration rate (eGFR) will [...] L [id number] #### [facility] ([facility]) [address] [place] [address] Glucose [Mass/Vol] 113 mg/dL High 70-100 [facility] Comment on above: Performed By: #### L [id number] #### [facility] ([facility]) [address] [place] [address] Potassium [Moles/Vol] 3.4 mmol/L Low 3.5-5.1 [facility] Comment on above: Performed By: #### L [id number] #### [facility] ([facility]ER) [address] [place] [address] Sodium [Moles/Vol] 142 mmol/L Normal 136-145 [facility] Comment on above: Performed By: #### L [id number] #### [facility] ([facility]) [address] [place] [address] Urea nitrogen [Mass/Vol] 14 mg/dL Normal 7-25 [facility] Comment on above: Performed By: #### L [id number] #### [facility] ([facility]) [address] [place] [address] UREA NITROGEN/CREATININE (MASS RATIO) IN SER/PLAS 12.[address] [facility] Comment on above: Performed By: #### L [id number] #### [facility] ([facility]) [address] [place] [address] CBC WITH AUTO DIFFERENTIALon 07-11-2024 Basophils (Bld) [#/Vol] 0.04 10*3/uL Normal 0.00-0.20 [facility] Comment on above: Performed By: #### L [id number] #### [facility] ([facility]) [address] [place] [address] Basophils/100 WBC (Bld) 0.6 % Normal 0.0-1.0 [facility] Comment on above: Performed By: #### L [id number] #### [facility] ([facility]) [address] [place] [address] Eosinophils (Bld) [#/Vol] 0.16 10*3/uL Normal 0.00-0.50 [facility] Comment on above: Performed By: #### L [id number] #### [facility] [address] [place] [address] Eosinophils/100 WBC (Bld) 2.2 % Normal 0.0-6.0 [facility] Comment on above: Performed By: #### L [id number] #### [facility] [address] [place] [address] Erythrocyte distribution width (RBC) [Ratio] 14.6 % Normal 11.5-15.0 [facility] Comment on above: Performed By: #### L [id number] #### [facility] [address] [place] [address] ERYTHROCYTE MEAN CORPUSCULAR HEMOGLOBIN CONCENTRATION (G/DL) BY AUTOMATED 32.0 g/dL Normal 32.0-35.0 [facility] Comment on above: Performed By: #### L [id number] #### [facility] ([facility]) [address] [place] [address] Hematocrit (Bld) [Volume fraction] 36.2 % Normal 36.0-48.0 [facility] Comment on above: Performed By: #### L [id number] #### [facility] ([facility]) [address] [place] [address] Hemoglobin (Bld) [Mass/Vol] 11.6 g/dL Low 12.0-15.0 [facility] Comment on above: Performed By: #### L [id number] #### [facility] ([facility]) [address] [place] [address] Immature granulocytes (Bld) [#/Vol] 0.02 10*3/uL Normal 0.00-0.20 [facility] Comment on above: Performed By: #### L [id number] #### [facility] ([facility]) [address] [place] [address] Immature granulocytes/100 WBC (Bld) 0.3 % Normal 0.0-1.0 [facility] Comment on above: Performed By: #### L [id number] #### [facility] ([facility]) [address] [place] [address] Lymphocytes (Bld) [#/Vol] 2.34 10*3/uL Normal 1.20-4.00 [facility] Comment on above: Performed By: #### L [id number] #### [facility] ([facility]) [address] [place] [address] Lymphocytes/100 WBC (Bld) 32.6 % Normal 20.0-45.0 [facility] Comment on above: Performed By: #### L [id number] #### [facility] ([facility]) [address] [place] [address] MCH (RBC) [Entitic mass] 27.2 pg Normal 27.0-33.0 [facility] Comment on above: Performed By: #### L [id number] #### [facility] ([facility]) [address] [place] [address] MCV (RBC) [Entitic vol] 85.0 fL Normal 82.0-98.0 [facility] Comment on above: Performed By: #### L [id number] #### [facility] ([facility]) [address] [place] [address] Monocytes (Bld) [#/Vol] 0.49 10*3/uL Normal 0.10-1.00 [facility] Comment on above: Performed By: #### L [id number] #### [facility] ([facility]) [address] [place] [address] Monocytes/100 WBC (Bld) 6.8 % Normal 5.0-12.0 [facility] Comment on above: Performed By: #### L [id number] #### [facility] ([facility]) [address] [place] [address] Neutrophils (Bld) [#/Vol] 4.13 10*3/uL Normal 1.60-7.60 [facility] Comment on above: Performed By: #### L [id number] #### [facility] (BEAKER) [address] [place] [address] Neutrophils/100 WBC (Bld) 57.5 % Normal 40.0-72.0 [facility] Comment on above: Performed By: #### L [id number] #### [facility] ([facility]) [address] [place] [address] NRBC (PER 100 WBCS) BY AUTOMATED COUNT 0.0 % Normal 0 [facility] Comment on above: Performed By: #### L [id number] #### [facility] ([employer]) [address] [place] [address] PLATELETS (10*3/UL) IN BLOOD AUTOMATED COUNT 245 10*3/uL Normal 150-400 [facility] Comment on above: Performed By: #### L [id number] #### [facility] [address] [place] [address] RBC (Bld) [#/Vol] 4.26 10*6/uL Normal 3.80-5.00 [facility] Comment on above: Performed By: #### L [id number] #### [facility] ([facility]ER) [address] [place] [address] WBC (Bld) [#/Vol] 7.18 10*3/uL Normal 4.00-10.60 [facility] Comment on above: Performed By: #### L [id number] #### [facility] ([facility]ER) [address] [place] [address] CONSULTon 07-11-2024 CONSULT -- Attestation signed by [...] Brown is the endocrine surgeon in the [place] area that would be most appropriate and [...] patient is presenting as a transfer from [facility] for the evaluation of chest pain. [...] Obstructive sleep apnea, Panic attacks, and Stroke ([facility]). Surgical History She has a past surgical [...] Value Ventricular Rate 56 Atrial Rate 56 ID Interval 180 QRS DURATION 94 QT Interval 430 QTC (more content not included)... Normal [facility] EDPROVon 07-11-2024 EDPROV HPI Chief Complaint [...] Pt states she was trasnfered here from [place] to be transferred to cardiology. Pt states she had a cardiac stent placed last week. She denies fever, coughing, vomiting, abdominal pain. She admits diarrhea. She felt better when given ativan and worse when she was given morphine. She has had her gallbladder removed. 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 The Emergency Physician/SPRING TIER/PA-C assumes full responsibility for those entries. The Emergency Physician/SPRING TIER/PA-C also attests that any patient testing or treatment that was instituted by nursing staff. [facility] EDPROV HPI Chief Complaint Patient presents [...] Pt states she was trasnfered here from [place] to be transferred to cardiology. Pt states she had a cardiac stent placed last week. She denies fever, coughing, vomiting, abdominal pain. She admits diarrhea. She felt better when given ativan and worse when she was given morphine. She has had her gallbladder removed. 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 Chest Pain Associated symptoms: no abdominal pain, no cough, no fever and no vomiting Medina Coma Scale Score: 15 Patient History Past Medical History: Diagnosis Date Abnormal ECG Diabetes mellitus ([facility]) Hyperlipidemia Hypertension Obstructive sleep apnea Panic attacks Stroke ([facility]) Past Surgical History: Procedure Laterality Date CEREBRAL [...] 07/11/24 1256 NSTEMI (non-ST elevated myocardial infarction) ([facility]) Medical Decision Making Amount and/or Complexity of Data Reviewed Labs: ordered. Decision-making details documented in ED Course. ECG/medicine tests: ordered and independent interpretation performed. Decision-making details documented in ED Course. Risk Drug therapy requiring intensive monitoring for toxicity. Decision regarding hospitalization. Minor surgery with identified risk factors. I, Basilia diallo (more content not included)... Invalid Interpretation Code [facility] POCT GLUCOSE METER UNSOLICIT ED RESULTSon 07-11-2024 Glucose [Mass/Vol] 122 mg/dL High 70-105 [facility] Comment on above: Order Comment: Waive d Testing in the ED is performed under the ED CLIA certificate #[id number]. Result Comment: [email or web address] Performed By: #### L [id number] #### [facility] ([employer]) [address] [place] [address] PROTIME-INRon 07-11-2024 INR IN PPP BY COAGULATION ASSAY 1.00 Normal 0.90-1.10 [facility] Comment on above: Result Comment: ACCC [...] 1995;[id number]. Performed By: #### L [id number] #### [facility] (BEAKER) [address] [place] [address] PROTHROMBIN TIME (PT) IN PPP BY COAGULATION ASSAY 13.2 Seconds Normal 12.3-14.8 [facility] Comment on above: Performed By: #### L [id number] #### [facility] [address] RENIN ACTIVITYon 07-11-2024 RENIN ACTIVITY <0.[address] [facility] Comment on above: Result Comment: INTE RPRETIVE INFORMATION: Renin Activity Adult, Normal sodium diet: Supine ................. 0.2-1.6 ng/mL/hr Upright ................ 0.5-4.0 ng/mL/hr Children, Normal sodium diet, Supine: [place] (1-7 days) ..... 2.0-35.0 ng/mL/hr Cord blood [...] developed and its performance characteristics determined by [employer]. It has not been cleared or approved by the US Food and Drug Administration. This test was performed in a CLIA certified laboratory and is intended for clinical purposes. Performed By: [employer] [address] [place] [address] Instructional Supervisor: Navneet Simeon MD, PhD CLIA Number: [id number] Performed By: #### L [id number] #### [facility] (BEAKER) [address] [place] [address] TROPONIN Ion 07-11-2024 Troponin I.cardiac [Mass/Vol] 0.01 ng/mL Normal 0.00-0.04 [facility] Comment on above: Performed By: #### L [id number] ####[facility] (BEAKER)[address] [place] [address] Office Visiton 07-10-2024 Follow-up visit [id number] Aby Madrigal 1965 F Date Provider Department Center 07/10/2024 83771-HAWLLPBIJAN VAZQUEZ [facility] [place] Family History Problem Relation Age of Onset Lung cancer Mother No Known Problems Father Lung cancer Sister Family Status - Relation Status Age at Mother Father Sister Level of Service:17407 ID OFFICE/OUTPATIENT ESTABLISHED MOD MDM 30 MIN Reason for Visit and Comments: Coronary Artery Disease [187] Post-Cath [731] Normal [facility] 36on 07-03-2024 36 Post Discharge Call Good morning, I am Ginny Garcia, RN a lead nurse from [facility]. I am calling you to [...] No Patient Name Aby Madrigal Date 07/03/24 [facility] Telephoneon 07-03-2024 Telephone [id number] Aby Madrigal 1965 F Date Provider Department Center 07/03/2024 Adeal-GINNY GARCIA [facility] Family History Problem Relation Age of Onset Lung cancer Mother No Known Problems Father Lung cancer Sister Family Status - Relation Status Age at Mother Father Sister Reason for Visit and Comments: Hospital Follow-up [832] [facility] 30on 07-01-2024 30 The patient is [...] and maintained or improved Outcome: Progressing Normal [facility] BASIC METABOLIC PANELon 08- Anion gap [Moles/Vol] 14 mmol/L Normal - [facility] Comment on above: Performed By: #### L [id number] #### [facility] ([facility]AKER) [address] [place] [address] Calcium [Mass/Vol] 8.2 mg/dL Low 8.6-10.3 [facility] Comment on above: Performed By: #### L [id number] #### [facility] (BEAKER) [address] [place] [address] Chloride [Moles/Vol] 106 mmol/L Normal 98-107 [facility] Comment on above: Performed By: #### L [id number] #### [facility] ([facility]) [address] [place] [address] CO2 [Moles/Vol] 25 mmol/L Normal 21-[address] [facility] Comment on above: Performed By: #### L [id number] #### [facility] ([facility]) [address] [place] [address] Creatinine [Mass/Vol] 0.91 mg/dL Normal 0.60-1.20 [facility] Comment on above: Performed By: #### L [id number] #### [facility] ([facility]) [address] [place] [address] GLOMERULAR FILTRATION RATE ML/MIN/1.73 SQ M.PREDICTED 72.2 mL/min/1.73m*2 Normal >60.0 [facility] Comment on above: Result Comment: [facility]???s estimated glomerular filtration rate (eGFR) will [...] #### L AB15 #### [facility] ([facility]) [address] [place] [address] Glucose [Mass/Vol] 101 mg/dL High 70-100 [facility] Comment on above: Performed By: #### L [id number] #### [facility] ([facility]) [address] [place] [address] Potassium [Moles/Vol] 3.5 mmol/L Normal 3.5-5.1 [facility] Comment on above: Performed By: #### L [id number] #### [facility] (BE[facility]ER) [address] [place] [address] Sodium [Moles/Vol] 141 mmol/L Normal 136-145 [facility] Comment on above: Performed By: #### L [id number] #### [facility] ([facility]ER) [address] [place] [address] Urea nitrogen [Mass/Vol] 13 mg/dL Normal 7-25 [facility] Comment on above: Performed By: #### L [id number] #### [facility] [address] [place] [address] UREA NITROGEN/CREATININE (MASS RATIO) IN SER/PLAS 14.[address] [facility] Comment on above: Performed By: #### L [id number] #### [facility] [address] [place] [address] CBCon 07-01-2024 Erythrocyte distribution width (RBC) [Ratio] 15.4 % High 11.5-15.0 [facility] Comment on above: Performed By: #### L [id number] ####[facility] ([facility] [place] [address] ERYTHROCYTE MEAN CORPUSCULAR HEMOGLOBIN CONCENTRATION (G/DL) BY AUTOMATED 32.1 g/dL Normal 32.0-35.0 [facility] Comment on above: Performed By: #### L [id number] ####[facility] ([facility] [place] [address] Hematocrit (Bld) [Volume fraction] 38.6 % Normal 36.0-48.0 [facility] Comment on above: Performed By: #### L [id number] ####[facility] (BEAKER)[address] [place], [place] [address] Hemoglobin (Bld) [Mass/Vol] 12.4 g/dL Normal 12.0-15.0 [facility] Comment on above: Performed By: #### L [id number] ####[facility] (BEAKER)[address] [place] [address] MCH (RBC) [Entitic mass] 26.9 pg Low 27.0-33.0 [facility] Comment on above: Performed By: #### L [id number] ####[facility] ([facility] [place] [address] MCV (RBC) [Entitic vol] 83.7 fL Normal 82.0-98.0 [facility] Comment on above: Performed By: #### L [id number] ####[facility] ([facility])[address] [place] [address] PLATELETS (10*3/UL) IN BLOOD AUTOMATED COUNT 238 10*3/uL Normal 150-400 [facility] Comment on above: Performed By: #### L [id number] ####[facility] ([facility])[address] [place] [address] RBC (Bld) [#/Vol] 4.61 10*6/uL Normal 3.80-5.00 [facility] Comment on above: Performed By: #### L [id number] ####[facility] ([facility])[address] [place] [address] WBC (Bld) [#/Vol] 7.04 10*3/uL Normal 4.00-10.60 [facility] Comment on above: Performed By: #### L [id number] ####[facility] [place] [address] LIPID PANELon 07-01-2024 CHOL/HDL 3.8 mg/dL Normal [facility] Comment on above: Performed By: #### L [id number] #### [facility] ([facility]ER) [address] [place] [address] Cholesterol [Mass/Vol] 128 mg/dL Normal 120-200 [facility] Comment on above: Performed By: #### L [id number] #### [facility] ([facility]ER) [address] [place] [address] Magnesium [Mass/Vol] 87 mg/dL Normal 40-149 [facility] Comment on above: Result Comment: TRIG LYCERIDE REFERENCE RANGE: 20 YEARS AND OLDER CARDIOVASCULAR RISK LESS THAN 150 mg/dL LOW RISK 150 TO 199 mg/dL BORDERLINE RISK 200 mg/dL AND GREATER HIGH RISK Performed By: #### L [id number] #### [facility] ([facility]ER) [address] [place] [address] Magnesium [Mass/Vol] 77 mg/dL Normal 0-160 [facility] Comment on above: Performed By: #### L [id number] #### [facility] ([facility]ER) [address] [place] [address] Magnesium [Mass/Vol] 34 mg/dL Normal 23-92 [facility] Comment on above: Performed By: #### L [id number] #### [facility] ([facility]ER) [address] [place] [address] NON HDL CHOL. (LDL+VLDL) [address] [facility] Comment on above: Performed By: #### L [id number] #### [facility] ([facility]ER) [address] [place] [address] TOTAL VLDL-C 17 mg/dL Normal 0-40 [facility] Comment on above: Performed By: #### L [id number] #### [facility] ([facility]ER) [address] [place] [address] MAGNESIUMon 07-01-2024 Magnesium [Mass/Vol] 2.0 mg/dL Normal 1.9-2.7 [facility] Comment on above: Performed By: #### L [id number] #### [facility] ([facility]ER) [address] [place] [address] NURSNOTEon 07-01-2024 NURSNOTE Discharge instructio ns given, reviewed, questions, answered, signed, copy received. Normal [facility] POCT GLUCOSE METER UNSOLICIT ED RESULTSon 07-01-2024 Glucose [Mass/Vol] 124 mg/dL High 70-105 [facility] Comment on above: Order Comment: Waive d Testing in the ED is performed under the ED CLIA certificate #[id number]. Result Comment: [email or web address] Performed By: #### L [id number] #### [facility] [address] [place] [address] Glucose [Mass/Vol] 106 mg/dL High 70-105 [facility] Comment on above: Order Comment: Waive d Testing in the ED is performed under the ED CLIA certificate #[id number]. Result Comment: [email or web address] Performed By: #### L [id number] #### [facility] ([facility]) [address] [place] [address] TROPONIN Ion 07-01-2024 Troponin I.cardiac [Mass/Vol] 0.09 ng/mL High 0.00-0.04 [facility] Comment on above: Performed By: #### L [id number] #### [facility] ([facility]) [address] [place] [address] 30on 06-30-2024 30 The patient is Moderately Stable - Low risk of patient condition declining or worsening The patient's goals for the shift include comfort, rest The clinical goals for the shift include stable vitals, comfort Problem: Pain - Adult Goal: Verbalizes/displays adequate comfort level or baseline comfort level Outcome: Not Progressing [facility] 30 Daily Case Managemen t Update [...] PT Recommendations: OT Recommendations: New Consults: Normal [facility] 30 The patient is Moderately Stable - Low risk of patient condition declining or worsening The patient's goals for the shift include COMFORT The clinical goals for the shift include VSS Over the shift, the patient did not make progress toward the following goals. Barriers to progression include . Recommendations to address these barriers include . Normal [facility] ANTI-XA (HEPARIN LEVEL)on HEPARIN UNFRACTIONATED (U/ML) IN PPP BY CHROMOGENIC METHOD 0.64 IU/mL Normal 0.3-0.7 [facility] Comment on above: Order Comment: Check anti-Xa level every 6 hours while on heparin infusion, or per protocol. Result Comment: Radha roxaban and Apixaban will interfere with the anti Xa assay used to monitor UFH and LMWH. Performed By: #### L [id number] ####[facility] ([facility])[address] [place] [address] BASIC METABOLIC PANELon Anion gap [Moles/Vol] 11 mmol/L Normal 7-20 [facility] Comment on above: Performed By: #### L [id number] #### [facility] ([facility]) [address] [place] [address] Calcium [Mass/Vol] 8.3 mg/dL Low 8.6-10.3 [facility] Comment on above: Performed By: #### L [id number] #### [facility] ([facility]AKER) [address] [place] [address] Chloride [Moles/Vol] 110 mmol/L High 98-107 [facility] Comment on above: Performed By: #### L [id number] #### [facility] ([facility]ER) [address] [place] [address] CO2 [Moles/Vol] 26 mmol/L Normal 21-[address] [facility] Comment on above: Performed By: #### L [id number] #### [facility] ([facility]ER) [address] [place] [address] Creatinine [Mass/Vol] 0.81 mg/dL Normal 0.60-1.20 [facility] Comment on above: Performed By: #### L [id number] #### [facility] ([facility]) [address] [place] [address] GLOMERULAR FILTRATION RATE ML/MIN/1.73 SQ M.PREDICTED 83.1 mL/min/1.73m*2 Normal >60.0 [facility] Comment on above: Result Comment: [facility]???s estimated glomerular filtration rate (eGFR) will [...] #### L [id number] #### [facility] ([facility]) [address] [place] [address] Glucose [Mass/Vol] 110 mg/dL High 70-100 [facility] Comment on above: Performed By: #### L [id number] #### [facility] ([facility]) [address] [place] [address] Potassium [Moles/Vol] 3.7 mmol/L Normal 3.5-5.1 [facility] Comment on above: Performed By: #### L [id number] #### [facility] ([facility]) [address] [place] [address] Sodium [Moles/Vol] 143 mmol/L Normal 136-145 [facility] Comment on above: Performed By: #### L [id number] #### [facility] ([facility]) [address] [place] [address] Urea nitrogen [Mass/Vol] 10 mg/dL Normal 7-25 [facility] Comment on above: Performed By: #### L [id number] #### [facility] ([facility]) [address] [place] [address] UREA NITROGEN/CREATININE (MASS RATIO) IN SER/PLAS 12.[address] [facility] Comment on above: Performed By: #### L [id number] #### [facility] [address] [place] [address] CBCon 06-30-2024 Erythrocyte distribution width (RBC) [Ratio] 15.3 % High 11.5-15.0 [facility] Comment on above: Performed By: #### L [id number] #### [facility] ([facility]) [address] [place] [address] ERYTHROCYTE MEAN CORPUSCULAR HEMOGLOBIN CONCENTRATION (G/DL) BY AUTOMATED 31.3 g/dL Low 32.0-35.0 [facility] Comment on above: Performed By: #### L [id number] #### [facility] ([facility]) [address] [place] [address] Hematocrit (Bld) [Volume fraction] 36.7 % Normal 36.0-48.0 [facility] Comment on above: Performed By: #### L [id number] #### [facility] ([facility]) [address] [place] [address] Hemoglobin (Bld) [Mass/Vol] 11.5 g/dL Low 12.0-15.0 [facility] Comment on above: Performed By: #### L [id number] #### [facility] ([facility]) [address] [place] [address] MCH (RBC) [Entitic mass] 26.9 pg Low 27.0-33.0 [facility] Comment on above: Performed By: #### L [id number] #### [facility] [address] [place] [address] MCV (RBC) [Entitic vol] 85.7 fL Normal 82.0-98.0 [facility] Comment on above: Performed By: #### L [id number] #### [facility] [address] [place] [address] PLATELETS (10*3/UL) IN BLOOD AUTOMATED COUNT 243 10*3/uL Normal 150-400 [facility] Comment on above: Performed By: #### L [id number] #### [facility] [address] [place] [address] RBC (Bld) [#/Vol] 4.28 10*6/uL Normal 3.80-5.00 [facility] Comment on above: Performed By: #### L [id number] #### [facility] ([facility]) [address] [place] [address] WBC (Bld) [#/Vol] 7.41 10*3/uL Normal 4.00-10.60 [facility] Comment on above: Performed By: #### L [id number] #### [facility] ([facility]) [address] [place] [address] CONSULTon 06-30-2024 CONSULT Cardiology Consult Note Reason for Consult: NSTEMI, transfer from [facility] HPI: Aby Madrigal, a 59 y.o. female patient, is transferred from [facility] for continuity of care. Past medical history includes: HTN History of TIA DMII HLD SURESH Overweight Patient reports that 3 days ago, she woke up in the mid of the night with indigestion, and a feeling fullness, but no pressure like chest pain. She presented to [facility], where she was found to [...] Value Ventricular Rate 71 Atrial Rate 71 ID Interval 176 QRS DURATION 92 QT Interval 424 QTC CALCULATION(BAZETT) 460 P [place] 52 R-[place] 19 T Wave [place] 164 Impression Normal sinus rhythm Left ventricular hypertrophy with repolarization abnormality ( R in aVL , Irwin product ) Abnormal ECG No previous ECGs available Lab Results Component Value Date TROPONINI 0.10 (H) 06/29/2024 No echocardiogram results found for the past 12 months No nuclear medicine results found for the past 12 months Relevant Imaging Results ECG 12 lead Normal sinu (more content not included)... Normal [facility] HPon 06-30-2024 H&P reviewed. The patient was examined and there are no changes to the H&P. 59 y.o. year old female with a PMHx significant for DM2, hypertension presents a direct mission from [facility] with a chief complaint of chest [...] to proceed. Signed, Yris Oakley MD PGY-4 Healthcare Corporate Account Director Pager: [phone] [facility] POCT GLUCOSE METER UNSOLICIT ED RESULTSon 06-30-2024 Glucose [Mass/Vol] 170 mg/dL High 70-105 [facility] Comment on above: Order Comment: Waive d Testing in the ED is performed under the ED CLIA certificate #[id number]. Result Comment: [email or web address] Performed By: #### L [id number] ####[facility] ([facility])[address] [place] [address] Glucose [Mass/Vol] 129 mg/dL High 70-105 [facility] Comment on above: Order Comment: Waive d Testing in the ED is performed under the ED CLIA certificate #[id number]. Result Comment: [email or web address] Performed By: #### L [id number] ####[facility] ([facility])[address] [facility] [address] Glucose [Mass/Vol] 167 mg/dL High 70-105 [facility] Comment on above: Order Comment: Basel ine aPTT before initiating heparin infusion. Result Comment: [email or web address] Performed By: #### L [id number] #### [facility] ([facility]) [address] [place] [address] TROPONIN Ion 06-30-2024 Troponin I.cardiac [Mass/Vol] 0.07 ng/mL High 0.00-0.04 [facility] Comment on above: Performed By: #### L [id number] #### [facility] ([facility]) [address] [place] [address] Troponin I.cardiac [Mass/Vol] 0.10 ng/mL High 0.00-0.04 [facility] Comment on above: Performed By: #### L [id number] #### [facility] ([facility]) [address] [place] [address] Troponin I.cardiac [Mass/Vol] 0.11 ng/mL Critically high 0.00-0.04 [facility] Comment on above: Result Comment: M-TR OPONIN INITIAL CRITICAL HIGH; RESPUN AND RETESTED Performed By: #### L [id number] #### [facility] ([facility]) [address] [place] [address] 30on 06-29-2024 30 The patient is Moderately Stable - Low risk of patient condition declining or worsening The patient's goals for the shift include COMFORT The clinical goals for the shift include VSS Normal [facility] APTTon 06-29-2024 ACTIVATED PARTIAL THROMBOPLASTIN TIME IN PPP BY COAGULATION ASSAY 34.5 Seconds Normal 25.0-35.0 [facility] Comment on above: Order Comment: Basel ine aPTT before initiating heparin infusion. Result Comment: Clin ical significance of the APTT is questionable in the presence of heparin. Performed By: #### L [id number] #### [facility] ([facility]) [address] [place] [address] B-TYPE NATRIURETIC PEPTIDEon 06-29-2024 Natriuretic peptide B (Bld) [Mass/Vol] 222 pg/mL High 0-100 [facility] Comment on above: Performed By: #### L [id number] #### [facility] ([facility]) [address] [place] [address] CBC WITH AUTO DIFFERENTIALon 06-29-2024 Basophils (Bld) [#/Vol] 0.05 10*3/uL Normal 0.00-0.20 [facility] Comment on above: Performed By: #### L [id number] #### [facility] ([facility]) [address] [place] [address] Basophils/100 WBC (Bld) 0.6 % Normal 0.0-1.0 [facility] Comment on above: Performed By: #### L [id number] #### [facility] [address] [place] [address] Eosinophils (Bld) [#/Vol] 0.18 10*3/uL Normal 0.00-0.50 [facility] Comment on above: Performed By: #### L [id number] #### [facility] ([facility]) [address] [place] [address] Eosinophils/100 WBC (Bld) 2.1 % Normal 0.0-6.0 [facility] Comment on above: Performed By: #### L [id number] #### [facility] ([facility]) [address] [place] [address] Erythrocyte distribution width (RBC) [Ratio] 14.9 % Normal 11.5-15.0 [facility] Comment on above: Performed By: #### L [id number] #### [facility] ([facility]) [address] [place] [address] ERYTHROCYTE MEAN CORPUSCULAR HEMOGLOBIN CONCENTRATION (G/DL) BY AUTOMATED 32.9 g/dL Normal 32.0-35.0 [facility] Comment on above: Performed By: #### L [id number] #### [facility] ([facility]) [address] [place] [address] Hematocrit (Bld) [Volume fraction] 35.9 % Low 36.0-48.0 [facility] Comment on above: Performed By: #### L [id number] #### [facility] ([facility]) [address] [place] [address] Hemoglobin (Bld) [Mass/Vol] 11.8 g/dL Low 12.0-15.0 [facility] Comment on above: Performed By: #### L [id number] #### [facility] [address] [place] [address] Immature granulocytes (Bld) [#/Vol] 0.03 10*3/uL Normal 0.00-0.20 [facility] Comment on above: Performed By: #### L [id number] #### [facility] ([facility]) [address] [place] [address] Immature granulocytes/100 WBC (Bld) 0.3 % Normal 0.0-1.0 [facility] Comment on above: Performed By: #### L [id number] #### [facility] [address] [place] [address] Lymphocytes (Bld) [#/Vol] 2.02 10*3/uL Normal 1.20-4.00 [facility] Comment on above: Performed By: #### L [id number] #### [facility] ([facility]) [address] [place] [address] Lymphocytes/100 WBC (Bld) 23.5 % Normal 20.0-45.0 [facility] Comment on above: Performed By: #### L [id number] #### [facility] ([facility]) [address] [place] [address] MCH (RBC) [Entitic mass] 27.2 pg Normal 27.0-33.0 [facility] Comment on above: Performed By: #### L [id number] #### [facility] ([facility]) [address] [place] [address] MCV (RBC) [Entitic vol] 82.7 fL Normal 82.0-98.0 [facility] Comment on above: Performed By: #### L [id number] #### [facility] [address] [place] [address] Monocytes (Bld) [#/Vol] 0.56 10*3/uL Normal 0.10-1.00 [facility] Comment on above: Performed By: #### L [id number] #### [facility] [address] [place] [address] Monocytes/100 WBC (Bld) 6.5 % Normal 5.0-12.0 [facility] Comment on above: Performed By: #### L [id number] #### [facility] ([facility]) [address] [place] [address] Neutrophils (Bld) [#/Vol] 5.74 10*3/uL Normal 1.60-7.60 [facility] Comment on above: Performed By: #### L [id number] #### [facility] [address] [place] [address] Neutrophils/100 WBC (Bld) 67.0 % Normal 40.0-72.0 [facility] Comment on above: Performed By: #### L [id number] #### [facility] ([facility]) [address] [place] [address] NRBC (PER 100 WBCS) BY AUTOMATED COUNT 0.0 % Normal 0 [facility] Comment on above: Performed By: #### L [id number] #### [facility] ([facility]) [address] [place] [address] PLATELETS (10*3/UL) IN BLOOD AUTOMATED COUNT 233 10*3/uL Normal 150-400 [facility] Comment on above: Performed By: #### L [id number] #### [facility] ([facility]) [address] [place] [address] RBC (Bld) [#/Vol] 4.34 10*6/uL Normal 3.80-5.00 [facility] Comment on above: Performed By: #### L [id number] #### [facility] ([facility]) [address] [place] [address] WBC (Bld) [#/Vol] 8.58 10*3/uL Normal 4.00-10.60 [facility] Comment on above: Performed By: #### L [id number] #### [facility] [address] [place] [address] COMPREHENSIVE METABOLIC PANE Alec 06-29-2024 Albumin [Mass/Vol] 3.8 g/dL Normal 3.5-5.7 [facility] Comment on above: Performed By: #### L [id number] ####[facility] ([facility])[address] [place] [address] ALP [Catalytic activity/Vol] 64 U/L Normal 34-104 [facility] Comment on above: Performed By: #### L [id number] ####[facility] ([facility])[address] [place] [address] ALT [Catalytic activity/Vol] 35 U/L Normal 7-52 [facility] Comment on above: Performed By: #### L [id number] ####[facility] ([facility])[address] [place] [address] Anion gap [Moles/Vol] 12 mmol/L Normal 7-20 [facility] Comment on above: Performed By: #### L [id number] ####[facility] ([facility])[address] [place] [address] AST [Catalytic activity/Vol] 21 U/L Normal 13-39 [facility] Comment on above: Performed By: #### L [id number] ####[facility] ([facility])[address] [place] [address] Bilirubin [Mass/Vol] 0.4 mg/dL Normal 0.3-1.0 [facility] Comment on above: Performed By: #### L [id number] ####[facility] ([facility])[address] [place] [address] Calcium [Mass/Vol] 8.5 mg/dL Low 8.6-10.3 [facility] Comment on above: Performed By: #### L [id number] ####[facility] ([facility])[address] [place] [address] Chloride [Moles/Vol] 112 mmol/L High 98-107 [facility] Comment on above: Performed By: #### L [id number] ####[facility] ([facility])[address] [place] [address] CO2 [Moles/Vol] 22 mmol/L Normal 21-[address] [facility] Comment on above: Performed By: #### L [id number] ####[facility] ([facility])[address] [place] [address] Creatinine [Mass/Vol] 0.92 mg/dL Normal 0.60-1.20 [facility] Comment on above: Performed By: #### L [id number] ####[facility] ([facility])[address] [place] [address] GLOMERULAR FILTRATION RATE ML/MIN/1.73 SQ M.PREDICTED 71.3 mL/min/1.73m*2 Normal >60.0 [facility] Comment on above: Result Comment: [facility]???s estimated glomerular filtration rate (eGFR) will [...] By: #### L [id number] ####[facility] ([facility])[address] [place] [address] Glucose [Mass/Vol] 108 mg/dL High 70-100 [facility] Comment on above: Performed By: #### L [id number] ####[facility] ([facility])[address] [facility] [place] [address] Potassium [Moles/Vol] 3.7 mmol/L Normal 3.5-5.1 [facility] Comment on above: Performed By: #### L [id number] ####[facility] ([facility])[address] [place] [address] Protein [Mass/Vol] 6.1 g/dL Normal 6.0-8.3 [facility] Comment on above: Performed By: #### L [id number] ####[facility] ([facility])[address] [place] [address] Sodium [Moles/Vol] 142 mmol/L Normal 136-145 [facility] Comment on above: Performed By: #### L [id number] ####[facility] ([facility])[address] [place] [address] Urea nitrogen [Mass/Vol] 11 mg/dL Normal 7-25 [facility] Comment on above: Performed By: #### L [id number] ####[facility] ([facility])[address] [place] [address] UREA NITROGEN/CREATININE (MASS RATIO) IN SER/PLAS 12.[address] [facility] Comment on above: Performed By: #### L [id number] ####[facility] ([facility])[address] [place] [address] MAGNESIUMon 06-29-2024 Magnesium [Mass/Vol] 1.7 mg/dL Low 1.9-2.7 [facility] Comment on above: Performed By: #### L [id number] #### [facility] ([facility]) [address] [place] [address] PHOSPHORUSon 06-29-2024 Magnesium [Mass/Vol] 2.9 mg/dL Normal 2.5-5.0 [facility] Comment on above: Performed By: #### L [id number] ####[facility] ([facility])[address] [place] [address] PROTIME-INRon 06-29-2024 INR IN PPP BY COAGULATION ASSAY 0.99 Normal 0.90-1.10 [facility] Comment on above: Result Comment: ACCC [...] #### L [id number] #### [facility] ([facility]) [address] [place] [address] PROTHROMBIN TIME (PT) IN PPP BY COAGULATION ASSAY 13.1 Seconds Normal 12.3-14.8 [facility] Comment on above: Performed By: #### L [id number] #### [facility] ([facility]) [address] [place] [address] TROPONIN Ion 06-29-2024 Troponin I.cardiac [Mass/Vol] 0.10 ng/mL High 0.00-0.04 [facility] Comment on above: Performed By: #### L [id number] ####[facility] ([facility])[address] [place] [address] Covid-19 PCR (CVDTB)on 10-24 SARS-CoV-2 (COVID-19) RNA BECK+probe Ql (Unsp spec) Not detected Normal NOT DETECTED [facility] Comment on above: Result Comment: This test is not yet approved or cleared by the [place] FDA. When there are no FDA-approved or cleared tests available, and other criteria are met, FDA can make tests available under an emergency access mechanism called an Emergency Use Authorization (EUA). The EUA for this test is supported by the [place] of Health and Human Service's (HHS's) declaration [...] consistent with SARS-CoV-2. Performed By: #### C [facility] #### [facility] [address] [address] [address] Rich Welch VC VENOUS REFLUX NINO LMTon 1 12-02-2021 VC VENOUS REFLUX NINO LMT Patient: ABY MADRIGAL Exam Date: 10/02/2022 : 1965 Gender:F Ordering : DR KENDRA MORAN . Admission #: [id number] Family : Order #: [id number] CLICK HERE TO VIEW EXAM RADIOLOGY REPORT [...] chronic thrombus visualized Compressibility: Normal Flow: Normal Academic Advisement Director: Dist/med calf 3.3mm with 0s reflux. Tech Note: Incompetent SFJ and GSV. Patent varicose vein mid/med calf 2.9mm with 0s reflux. Patent varicose vein prox/post calf 3.8mm with 0s reflux. Patent varicose vein dist/med thigh 3.8mm with 2.0s reflux. CONCLUSION: 1. Mild right and [id number]-vg-[id number] left great saphenous vein venous insufficiency with dilatation 2. Left saphenous popliteal junction reflux 3. Mild left anterior accessory saphenous vein venous insufficiency without dilatation 4. Small bilateral incompetent varicose veins Dictated by: Adelia Lezama MD on 10/02/2022 at 13:36 Approved by: Adelia Lezama MD on 10/02/2022 at 13:52 Normal [facility] ECHOCARDIO M/2D COMPLETEon 1 11-30-2021 ECHOCARDIO M/2D COMPLETE Patient: ABY MADRIGAL Exam Date: 09/30/2022 : 1965 Gender:F Ordering : DR KENDRA MORAN . Admission #: [id number] Family : Order #: [id number] CLICK HERE TO VIEW EXAM ECHOCARDIOGRAM REPORT [...] Spence M.D. on 09/30/2022 at 18:37 Normal [facility] BNPon 09-24-2022 Natriuretic peptide B (Bld) [Mass/Vol] 501.0 pg/mL Normal <=900.0 [facility] Comment on above: Performed By: #### C VDTB #### [facility] [address] [place] [address] Dr. Rich Welch CBC AUTO DIFFon 09-24-2022 BASO # 0.1 103/ul Normal 0.0-0.1 [facility] Comment on above: Performed By: #### C VDTB #### [facility] [address] [place] [address] Dr. Rich Welch Basophils/100 WBC (Bld) 0.8 % Normal 0.2-2.0 [facility] Comment on above: Performed By: #### C VDTBH #### [facility] [address] [place] [address] Dr. Rich Welch EO # 0.3 103/ul Normal 0.0-0.7 [facility] Comment on above: Performed By: #### C VDTBH #### [facility] [address] [place] [address] Dr. Rich Welch Eosinophils/100 WBC (Bld) 3.4 % Normal 0.9-7.0 [facility] Comment on above: Performed By: #### C VDTBH #### [facility] [address] [place] [address] Dr. Rich Welch Erythrocyte distribution width (RBC) [Ratio] 13.3 % Normal 11.0-15.0 [facility] Comment on above: Performed By: #### C VDTBH #### [facility] [address] [place] [address] Dr. Rich Welch Hematocrit (Bld) [Volume fraction] 40.5 % Normal 36.0-48.0 [facility] Comment on above: Performed By: #### C VDTBH #### [facility] [address] [place] [address] Dr. Rich Welch Hemoglobin (Bld) [Mass/Vol] 13.1 g/dL Normal 12.0-16.0 [facility] Comment on above: Performed By: #### C VDTBH #### [facility] [address] [place] [address] Dr. Rich Welch IG # 0.02 10e3/ul Normal 0.00-0.03 [facility] Comment on above: Performed By: #### C VDTBH #### [facility] [address] [place] [address] Dr. Rich Welch IG % 0.3 % Normal 0.0-0.5 [facility] Comment on above: Performed By: #### C VDTBH #### [facility] [address] [place] [address] Dr. Rich Welch LYMPH # 2.7 103/ul Normal 1.2-3.8 [facility] Comment on above: Performed By: #### C VDTBH #### [facility] [address] [place] [address] Dr. Rich Welch Lymphocytes/100 WBC (Bld) 35.4 % Normal 20.5-60.0 [facility] Comment on above: Performed By: #### C VDTBH #### [facility] [address] [place] [address] Dr. Rich Welch MANUAL DIFF REQ NO Normal [facility] Comment on above: Performed By: #### C VDTBH #### [facility] [address] [place] [address] Dr. Rich Welch MCH (RBC) [Entitic mass] 28.2 pg Normal 26.7-34.0 [facility] Comment on above: Performed By: #### C VDTBH #### [facility] [address] [place] [address] Dr. Rich Welch MCHC (RBC) [Mass/Vol] 32.3 g/dL Normal 29.9-35.2 [facility] Comment on above: Performed By: #### C VDTBH #### [facility] [address] [place] [address] Dr. Rich Welch MCV (RBC) [Entitic vol] 87.3 fL Normal 81.0-99.0 [facility] Comment on above: Performed By: #### C VDTBH #### [facility] [address] [place] [address] Dr. Rich Welch MONO # 0.5 103/ul Normal 0.3-0.8 [facility] Comment on above: Performed By: #### C VDTBH #### [facility] [address] [place] [address] Dr. Rich Welch Monocytes/100 WBC (Bld) 6.5 % Normal 1.7-12.0 [facility] Comment on above: Performed By: #### C VDTBH #### [facility] [address] [place] [address] Dr. Rich Welch NEUT # 4.1 103/ul Normal 1.4-6.5 [facility] Comment on above: Performed By: #### C VDTBH #### [facility] [address] [place] [address] Dr. Rich Welch Neutrophils/100 WBC (Bld) 53.6 % Normal 43.0-75.0 [facility] Comment on above: Performed By: #### C VDTBH #### [facility] [address] [place] [address] Dr. Rich Welch Platelet mean volume (Bld) [Entitic vol] 10.3 fL Normal 9.5-13.5 [facility] Comment on above: Performed By: #### C VDTBH #### [facility] [address] [place] [address] Dr. Rich Welch PLT 283 103/ul Normal 150-450 [facility] Comment on above: Performed By: #### C VDTBH #### [facility] [address] [place] [address] Dr. Rihc Welch RBC 4.64 106/ul Normal 4.20-5.40 [facility] Comment on above: Performed By: #### C VDTBH #### [facility] [address] [place] [address] Dr. Rich Welch WBC 7.6 103/ul Normal 4.0-11.0 [facility] Comment on above: Performed By: #### C VDTBH #### [facility] [address] [place] [address] Dr. Rich Welch INSULINon 09-24-2022 Insulin 15.1 uIU/mL Normal 2.6-24.9 [facility] Comment on above: Performed By: #### C VDTBH #### [facility] [address] [place] [address] Dr. Rich Welch PROF 14(COMP METB)on 022 Albumin [Mass/Vol] 3.5 g/dL Normal 3.4-5.0 [facility] Comment on above: Performed By: #### C VDTBH #### [facility] [address] [place] [address] Dr. Rich Welch Albumin/Globulin [Mass ratio] 1.0 {ratio} Normal [facility] Comment on above: Performed By: #### C VDTBH #### [facility] [address] [place] [address] Dr. Rich Welch ALP [Catalytic activity/Vol] 91 U/L Normal 46-116 [facility] Comment on above: Performed By: #### C VDTBH #### [facility] [address] [place] [address] Dr. Rich Welch ALT [Catalytic activity/Vol] 47 U/L Normal 14-59 [facility] Comment on above: Performed By: #### C VDTBH #### [facility] [address] [place] [address] Dr. Rich Welch Anion gap [Moles/Vol] 11.7 mmol/L Normal [facility] Comment on above: Performed By: #### C VDTBH #### [facility] [address] [place] [address] Dr. Rich Welch AST [Catalytic activity/Vol] 24 U/L Normal 15-37 [facility] Comment on above: Performed By: #### C VDTBH #### [facility] [address] [place] [address] Dr. Rich Welhc Bilirubin [Mass/Vol] 0.2 mg/dL Normal 0.2-1.0 [facility] Comment on above: Performed By: #### C VDTBH #### [facility] [address] [place] [address] Dr. Rich Welch Calcium [Mass/Vol] 8.9 mg/dL Normal 8.5-10.1 [facility] Comment on above: Performed By: #### C VDTBH #### [facility] [address] [place] [address] Dr. Rich Welch Chloride [Moles/Vol] 105 mmol/L Normal 98-107 [facility] Comment on above: Performed By: #### C VDTBH #### [facility] [address] [place] [address] Dr. Rich Welch CO2 [Moles/Vol] 28.1 mmol/L Normal 21.0-32.0 [facility] Comment on above: Performed By: #### C VDTBH #### [facility] [address] [place] [address] Dr. Rich Welch Creatinine [Mass/Vol] 1.13 mg/dL Critically high 0.55-1.02 [facility] Comment on above: Performed By: #### C VDTBH #### [facility] [address] [place] [address] Dr. Rich Welch EGFR-AF HONDURAN 60 mL/min/1.73m2 Normal >=60 Th [facility] Comment on above: Performed By: #### C VDTBH #### [facility] [address] [place] [address] Dr. Rich Welch EGFR-NON AF HONDURAN 49 mL/min/1.73m2 Critically low >=60 [facility] Comment on above: Performed By: #### C VDTBH #### [facility] [address] [address] [address] Rich Welch Globulin (S) [Mass/Vol] 3.5 g/dL Normal [facility] Comment on above: Performed By: #### C VDTBH #### [facility] [address] [address] [address] Rich Welch Glucose [Mass/Vol] 119 mg/dL Critically high 74-106 T [facility] Comment on above: Performed By: #### C VDTBH #### [facility] [address] [place] [address] Dr. Rich Welch Potassium [Moles/Vol] 3.8 mmol/L Normal 3.5-5.1 [facility] Comment on above: Performed By: #### C VDTBH #### [facility] [address] [place] [address] Dr. Rcih Welch Protein [Mass/Vol] 7.0 g/dL Normal 6.4-8.[address] [facility] Comment on above: Performed By: #### C VDTBH #### [facility] [address] [place] [address] Dr. Rich Welch Sodium [Moles/Vol] 141 mmol/L Normal 136-145 [facility] Comment on above: Performed By: #### C VDTBH #### [facility] [address] [place] [address] Dr. Rich Welch Urea nitrogen [Mass/Vol] 16.0 mg/dL Normal 7.0-18.0 [facility] Comment on above: Performed By: #### C VDTBH #### [facility] [address] [place] [address] Dr. Rich Welch Urea nitrogen/Creatinine [Mass ratio] 14.2 mg/mg Normal [facility] Comment on above: Performed By: #### C VDTBH #### [facility] [address] [address] [address] Rich Welch TROPONIN, HIGH SENSITIVITYon 09-24-2022 HSTROP 10.6 pg/mL Normal 4.0-51.3 [facility] Comment on above: Result Comment: CUT- OFF POINTS HAVE BEEN ESTABLISHED BASED ON THE FOURTH UNIVERSAL DEFINITIONS OF MYOCARDIAL INFARCTION. THE UPPER REFERENCE LIMIT (URL) OF TROPONIN, DEFINED THE 99TH PERCENTILE OF cTnI DISTRIBUTION IN A REFERENCE POPULATION, HAS BEEN CONFIRMED THE DECISION THRESHOLD FOR [place] DIAGNOSIS. Performed By: #### C [facility] #### [facility] [address] [place] [address] Dr. Rich Welch XR CHEST 1 Von [...] UMM HUMPHRIES Date: 2022-09-24 04:08 Normal [facility] CBC AUTO DIFFon 09-23-2022 BASO # 0.1 103/ul Normal 0.0-0.1 [facility] Comment on above: Performed By: #### C BC #### [facility] [address] [place] [address] Dr. Rich Welch Basophils/100 WBC (Bld) 0.8 % Normal 0.2-2.0 [facility] Comment on above: Performed By: #### C BC #### [facility] [address] [address] [address] Rich Welch EO # 0.2 103/ul Normal 0.0-0.7 [facility] Comment on above: Performed By: #### C BC #### [facility] [address] [place] [address] Dr. Rich Welch Eosinophils/100 WBC (Bld) 3.5 % Normal 0.9-7.0 [facility] Comment on above: Performed By: #### C BC #### [facility] [address] [place] [address] Dr. Rich Welch Erythrocyte distribution width (RBC) [Ratio] 13.4 % Normal 11.0-15.0 [facility] Comment on above: Performed By: #### C BC #### [facility] [address] [place] [address] Dr. Rich Welch Hematocrit (Bld) [Volume fraction] 42.3 % Normal 36.0-48.0 [facility] Comment on above: Performed By: #### C BC #### [facility] [address] [place] [address] Dr. Rich Welch Hemoglobin (Bld) [Mass/Vol] 13.4 g/dL Normal 12.0-16.0 [facility] Comment on above: Performed By: #### C BC #### [facility] [address] [place] [address] Dr. Rich Welch IG # 0.03 10e3/ul Normal 0.00-0.03 [facility] Comment on above: Performed By: #### C BC #### [facility] [address] [place] [address] Dr. Rich Welch IG % 0.5 % Normal 0.0-0.5 [facility] Comment on above: Performed By: #### C BC #### [facility] [address] [place] [address] Dr. Rich Welch LYMPH # 2.9 103/ul Normal 1.2-3.8 [facility] Comment on above: Performed By: #### C BC #### [facility] [address] [place] [address] Dr. Rich Welch Lymphocytes/100 WBC (Bld) 44.0 % Normal 20.5-60.0 [facility] Comment on above: Performed By: #### C BC #### [facility] [address] [place] [address] Dr. Rich Welch MANUAL DIFF REQ NO Normal [facility] Comment on above: Performed By: #### C BC #### [facility] [address] [place] [address] Dr. Rich Welch MCH (RBC) [Entitic mass] 28.4 pg Normal 26.7-34.0 [facility] Comment on above: Performed By: #### C BC #### [facility] [address] [place] [address] Dr. Rich Welch MCHC (RBC) [Mass/Vol] 31.7 g/dL Normal 29.9-35.2 [facility] Comment on above: Performed By: #### C BC #### [facility] [address] [place] [address] Dr. Rich Welch MCV (RBC) [Entitic vol] 89.6 fL Normal 81.0-99.0 [facility] Comment on above: Performed By: #### C BC #### [facility] [address] [place] [address] Dr. Rich Welch MONO # 0.4 103/ul Normal 0.3-0.8 [facility] Comment on above: Performed By: #### C BC #### [facility] [address] [place] [address] Dr. Rich Welch Monocytes/100 WBC (Bld) 6.6 % Normal 1.7-12.0 [facility] Comment on above: Performed By: #### C BC #### [facility] [address] [place] [address] Dr. Rich Welch NEUT # 2.9 103/ul Normal 1.4-6.5 [facility] Comment on above: Performed By: #### C BC #### [facility] [address] [place] [address] Dr. Rich Welch Neutrophils/100 WBC (Bld) 44.6 % Normal 43.0-75.0 [facility] Comment on above: Performed By: #### C BC #### [facility] [address] [place] [address] Dr. Rich Welch Platelet mean volume (Bld) [Entitic vol] 11.0 fL Normal 9.5-13.5 [facility] Comment on above: Performed By: #### C BC #### [facility] [address] [place] [address] Dr. Rich Welch PLT 272 103/ul Normal 150-450 [facility] Comment on above: Performed By: #### C BC #### [facility] [address] [place] [address] Dr. Rich Welch RBC 4.72 106/ul Normal 4.20-5.40 [facility] Comment on above: Performed By: #### C BC #### [facility] [address] [place] [address] Dr. Rich Welch WBC 6.5 103/ul Normal 4.0-11.0 [facility] Comment on above: Performed By: #### C BC #### [facility] [address] [place] [address] Dr. Rich Welch FREE THYROXINE INDEX T7on FTI 2.16 Normal 1.30-4.50 [facility] Comment on above: Performed By: #### L IPID, TSH, T7, CMP #### [facility] [address] [place] [address] Dr. Rich Welch T3U 30.0 % Normal 30.0-39.0 [facility] Comment on above: Performed By: #### L IPID, TSH, T7, CMP #### [facility] [address] [place] [address] Dr. Rich Welch T4 [Mass/Vol] 7.20 ug/dL Normal 4.80-13.90 [facility] Comment on above: Performed By: #### L IPID, TSH, T7, CMP #### [facility] [address] [place] [address] Dr. Rich Welch GLYCOHEMOGLOBIN A1Con 2021 ADA RECOMMENDATION SEE BELOW Normal [facility] Comment on above: Result Comment: ADA RECOMMENDED LIMIT 4.0 - 6.0 ADA THERAPEUTIC TARGET < 7.0 ACTION SUGGESTED > 7.0 Performed By: #### A 1C #### [facility] [address] [place] [address] Dr. Rich Welch Glucose [Mass/Vol] 128 mg/dL Normal [facility] Comment on above: Performed By: #### A 1C #### [facility] [address] [address] [address] Rich Welch HbA1c (Bld) [Mass fraction] 6.1 % Normal 4.5-6.2 [facility] Comment on above: Performed By: #### A 1C #### [facility] [address] [address] [address] Rich Welch IRONon 09-23-2022 Iron [Mass/Vol] 64.0 ug/dL Normal 50.0-170.0 [facility] Comment on above: Performed By: #### C VDTB #### [facility] [address] [place] [address] Dr. Rich Welch LIPID PROFILEon 09-23-2022 CHOL-HDL RATIO NORM SEE BELOW Normal [facility] Comment on above: Result Comment: 3.3 - 4.4 LOW RISK 4.4 - 7.1 AVERAGE RISK 7.1 - 11.0 MODERATE RISK >11.0 HIGH RISK Performed By: #### L IPID, TSH, T7, CMP #### [facility] [address] [address] [address] Rich Welch Cholesterol [Mass/Vol] 237 mg/dL Critically high <=200 [facility] Comment on above: Performed By: #### L IPID, TSH, T7, CMP #### [facility] [address] [address] [address] Rich Welch Cholesterol in HDL [Mass/Vol] 44 mg/dL Normal 40-60 [facility] Comment on above: Performed By: #### L IPID, TSH, T7, CMP #### [facility] [address] [address] [address] Rich Welch Cholesterol in LDL [Mass/Vol] 172.2 mg/dL Normal [facility] Comment on above: Performed By: #### L IPID, TSH, T7, CMP #### [facility] [address] [address] [address] Rich Welch Cholesterol.total/C holesterol in HDL [Mass ratio] 5.4 {ratio} Normal [facility] Comment on above: Performed By: #### L IPID, TSH, T7, CMP #### [facility] [address] [address] [address] Rich Welch HDL NORMAL > or = 60 mg/dl - LO W CARDIOVASCULAR RISK <40 mg/dl - HIGH CARDIOVASCULAR RISK Normal [facility] Comment on above: Performed By: #### L IPID, TSH, T7, CMP #### [facility] [address] [address] [address] Rich Welch LDL CALC NORMAL SEE BELOW Normal [facility] Comment on above: Result Comment: <100 mg/dl OPTIMAL 100 - 129 mg/dl NEAR OR ABOVE OPTIMAL 130 - 159 mg/dl BORDERLINE HIGH 160 - 189 mg/dl HIGH >190 mg/dl VERY HIGH Performed By: #### L IPID, TSH, T7, CMP #### [facility] [address] [address] [address] Rich Welch Triglyceride [Mass/Vol] 104 mg/dL Normal <=150 [facility] Comment on above: Performed By: #### L IPID, TSH, T7, CMP #### [facility] [address] [address] [address] Rich Welch VLDL CALC 20.8 mg/dL Normal [facility] Comment on above: Performed By: #### L IPID, TSH, T7, CMP #### [facility] [address] [address] [address] Rich Welch PROF 14(COMP METB)on 022 Albumin [Mass/Vol] 3.5 g/dL Normal 3.4-5.0 [facility] Comment on above: Performed By: #### L IPID, TSH, T7, CMP #### [facility] [address] [address] [address] Rich Welch Albumin/Globulin [Mass ratio] 0.9 {ratio} Normal [facility] Comment on above: Performed By: #### L IPID, TSH, T7, CMP #### [facility] [address] [place] [address] Dr. Rich Welch ALP [Catalytic activity/Vol] 93 U/L Normal 46-116 [facility] Comment on above: Performed By: #### L IPID, TSH, T7, CMP #### [facility] [address] [address] [address] Rich Welch ALT [Catalytic activity/Vol] 44 U/L Normal 14-59 [facility] Comment on above: Performed By: #### L IPID, TSH, T7, CMP #### [facility] [address] [place] [address] Dr. Rich Welch Anion gap [Moles/Vol] 8.5 mmol/L Normal [facility] Comment on above: Performed By: #### L IPID, TSH, T7, CMP #### [facility] [address] [place] [address] Dr. Rich Welch AST [Catalytic activity/Vol] 26 U/L Normal 15-37 [facility] Comment on above: Performed By: #### L IPID, TSH, T7, CMP #### [facility] [address] [place] [address] Dr. Rich Welch Bilirubin [Mass/Vol] 0.3 mg/dL Normal 0.2-1.0 [facility] Comment on above: Performed By: #### L IPID, TSH, T7, CMP #### [facility] [address] [place] [address] Dr. Rich Welch Calcium [Mass/Vol] 9.0 mg/dL Normal 8.5-10.1 [facility] Comment on above: Performed By: #### L IPID, TSH, T7, CMP #### [facility] [address] [place] [address] Dr. Rich Welch Chloride [Moles/Vol] 106 mmol/L Normal 98-107 [facility] Comment on above: Performed By: #### L IPID, TSH, T7, CMP #### [facility] [address] [place] [address] Dr. Rich Welch CO2 [Moles/Vol] 31.0 mmol/L Normal 21.0-32.0 [facility] Comment on above: Performed By: #### L IPID, TSH, T7, CMP #### [facility] [address] [address] [address] Rich Welch Creatinine [Mass/Vol] 1.11 mg/dL Critically high 0.55-1.02 [facility] Comment on above: Performed By: #### L IPID, TSH, T7, CMP #### [facility] [address] [place] [address] Dr. Rich Welch EGFR-AF HONDURAN >60 Normal >=60 [facility] Comment on above: Performed By: #### L IPID, TSH, T7, CMP #### [facility] [address] [place] [address] Dr. Rich Welch EGFR-NON AF HONDURAN 50 mL/min/1.73m2 Critically low >=60 [facility] Comment on above: Performed By: #### L IPID, TSH, T7, CMP #### [facility] [address] [place] [address] Dr. Rich Welch Globulin (S) [Mass/Vol] 3.7 g/dL Normal [facility] Comment on above: Performed By: #### L IPID, TSH, T7, CMP #### [facility] [address] [place] [address] Dr. Rich Welch Glucose [Mass/Vol] 121 mg/dL Critically high 74-106 T [facility] Comment on above: Performed By: #### L IPID, TSH, T7, CMP #### [facility] [address] [place] [address] Dr. Rich Welch Potassium [Moles/Vol] 4.5 mmol/L Normal 3.5-5.1 [facility] Comment on above: Performed By: #### L IPID, TSH, T7, CMP #### [facility] [address] [place] [address] Dr. Rich Welch Protein [Mass/Vol] 7.2 g/dL Normal 6.4-8.2 [facility] Comment on above: Performed By: #### L IPID, TSH, T7, CMP #### [facility] [address] [address] [address] Rich Welch Sodium [Moles/Vol] 141 mmol/L Normal 136-[address] [facility] Comment on above: Performed By: #### L IPID, TSH, T7, CMP #### [facility] [address] [address] [address] Rich Welch Urea nitrogen [Mass/Vol] 16.0 mg/dL Normal 7.0-18.0 [facility] Comment on above: Performed By: #### L IPID, TSH, T7, CMP #### [facility] [address] [address] [address] Rich Welch Urea nitrogen/Creatinine [Mass ratio] 14.4 mg/mg Normal [facility] Comment on above: Performed By: #### L IPID, TSH, T7, CMP #### [facility] [address] [address] [address] Rich Welch TSHon 09-23-2022 TSH 3.915 uIU/mL Critically high 0.358-3.[address] [facility] Comment on above: Performed By: #### L IPID, TSH, T7, CMP #### [facility] [address] [address] [address] Rich Welch Vital Signs Date Time Vital Sign Value Performing Clinician Deidre gagnon 06-01-2025 12:58-0400 Body height 162.6 cm Afsaneh Jacome DIRECT SALES CONSULTANT-FRESH WORK INSPECTOR Work Phone: [facility] 06-01-2025 12:58-0400 Body mass index (BMI) [Ratio] 33.27 kg/m2 Afsaneh Jacome DIRECT SALES CONSULTANT-FRESH WORK INSPECTOR Work Phone: [facility] 06-01-2025 12:58-0400 Body weight 87.91 kg Afsaneh Jacome DIRECT SALES CONSULTANT-FRESH WORK INSPECTOR Work Phone: [facility] 06-01-2025 12:58-0400 Diastolic blood pressure 78 mm[Hg] Afsaneh Jacome DIRECT SALES CONSULTANT-FRESH WORK INSPECTOR Work Phone: [facility] 06-01-2025 12:58-0400 Systolic blood pressure 130 mm[Hg] Afsaneh Jacome DIRECT SALES CONSULTANT-FRESH WORK INSPECTOR Work Phone: [facility] 03-03-2025 11:02-0400 Body height 160.02 cm [facility] 03-03-2025 11:02-0400 Body mass index (BMI) [Ratio] 35.6 kg/m2 [facility] 03-03-2025 11:02-0400 Body temperature 97.8 [degF] [facility] 03-03-2025 11:02-0400 Body weight 91.34 kg [facility] 03-03-2025 11:02-0400 Diastolic blood pressure 69 mm[Hg] [facility] 03-03-2025 11:02-0400 Heart rate 82 /min [facility] 03-03-2025 11:02-0400 Respiratory rate 18 /min [facility] 03-03-2025 11:02-0400 SaO2% (BldA) [Mass fraction] 96 % [facility] 03-03-2025 11:02-0400 Systolic blood pressure 108 mm[Hg] [facility] 03-02-2025 09:18-0400 Body height 162.6 cm Farzana Ely DIRECT SALES CONSULTANT-FRESH WORK INSPECTOR Work Phone: [facility] 03-02-2025 09:18-0400 Body mass index (BMI) [Ratio] 34.81 kg/m2 Farzana Ely DIRECT SALES CONSULTANT-FRESH WORK INSPECTOR Work Phone: [facility] 03-02-2025 09:18-0400 Body weight 91.99 kg Farzana Ely DIRECT SALES CONSULTANT-FRESH WORK INSPECTOR Work Phone: [facility] 03-02-2025 09:18-0400 Diastolic blood pressure 68 mm[Hg] Farzana Ely DIRECT SALES CONSULTANT-FRESH WORK INSPECTOR Work Phone: [facility] 03-02-2025 09:18-0400 Systolic blood pressure 118 mm[Hg] Farzana Ely DIRECT SALES CONSULTANT-FRESH WORK INSPECTOR Work Phone: [facility] 10-06-2022 15:36-0500 Blood Pressure Location Umm JACQUESMami [facility] 10-06-2022 15:36-0500 Diastolic blood pressure 86 mm[Hg] Umm JACQUESL [facility] 10-06-2022 15:36-0500 Heart rate 72 /min Umm NILL [facility] [place] 10-06-2022 15:36-0500 Respiratory rate 16 /min Umm JACQUESL [facility] [place] 10-06-2022 15:36-0500 Systolic blood pressure 126 mm[Hg] Umm JACQUESL [facility] [place] Encounters Encounter Date Encounter Type Care Provider Facility Start: 08-08-2025 ambulatory Umm LANDON Facility :[facility] Start: 06-25-2025 End: 06-25-2025 ambulatory [facility] Start: 06-08-2025 Evaluation and manag ement of inpatient [facility] Start: 06-08-2025 Evaluation and manag ement of inpatient JESUS ASH [facility] Start: 06-07-2025 End: 06-08-2025 Evaluation and management of inpatient LORENZO Dugan CORT[facility] Start: 06-01-2025 End: 06-01-2025 Patient encounter procedure Afsaneh Jacome DIRECT SALES CONSULTANT-FRESH WORK INSPECTOR Work Phone: [facility] [employer] [facility] Work Phone: Start: 06-01-2025 End: 06-01-2025 Periodic preventive med est patient 40-64yrs Afsaneh Jacome DIRECT SALES CONSULTANT-FRESH WORK INSPECTOR Work Phone: [facility] Comment on above: Well woman exam with routine gynecological exam (Primary Dx) Start: 06-01-2025 End: 06-01-2025 ambulatory AFSANEH JACOME [facility] Start: 05-21-2025 End: 05-21-2025 ambulatory Kendra Moran MD Work Phone: [facility] Work Phone: Start: 05-21-2025 End: 05-21-2025 Patient encounter procedure Elie Jackson DO [facility] Work Phone: Start: 05-21-2025 End: 05-21-2025 Patient encounter procedure [facility] Start: 05-21-2025 End: 05-21-2025 ambulatory Kendra Moran MD Work Phone: [facility] Work Phone: Start: 05-14-2025 End: 05-14-2025 ambulatory [facility] Start: 04-23-2025 End: 04-23-2025 ambulatory [facility] Start: 04-10-2025 End: 04-10-2025 ambulatory [facility] Start: 03-03-2025 End: 03-03-2025 ambulatory [facility] Work Phone: Start: 03-03-2025 End: 03-03-2025 Patient encounter procedure [facility] Work Phone: Start: 03-02-2025 End: 03-02-2025 ambulatory FARZANAZOEY ELY [facility] Start: 03-02-2025 End: 03-02-2025 Office outpatient visit 15 minutes Farzana Ely DIRECT SALES CONSULTANT-FRESH WORK INSPECTOR Work Phone: [facility] Comment on above: Genitourinary syndro me of menopause (Primary Dx); PCB (post coital bleeding) Start: 02-26-2025 End: 02-26-2025 ambulatory [facility] Start: 02-07-2025 End: 02-07-2025 ambulatory [facility] Start: 01-09-2025 End: 01-09-2025 ambulatory [facility] Start: 01-02-2025 End: 01-02-2025 ambulatory [facility] Start: 10-26-2024 End: 10-26-2024 ambulatory [facility] Start: 10-03-2024 End: 10-03-2024 ambulatory [facility] Start: 09-04-2024 End: 09-04-2024 [facility] Start: 08-29-2024 End: 08-29-2024 ambulatory [facility] Start: 08-04-2024 End: 08-04-2024 ambulatory [facility] Start: 07-20-2024 ambulatory [facility] Start: 07-20-2024 ambulatory [facility] Start: 07-18-2024 ambulatory [facility] Start: 07-18-2024 End: 07-18-2024 Emergency department patient visit HERMINIA JULIAN [facility] Start: 07-18-2024 End: 07-18-2024 ambulatory [facility] Start: 07-11-2024 Evaluation and manag ement of inpatient [facility] Start: 07-11-2024 Emergency department patient visit FEDERICA JACOBSON [facility] Start: 07-11-2024 End: 07-12-2024 Evaluation and management of inpatient JOSE BETANCUR [facility] Start: 07-10-2024 End: 07-10-2024 [facility] Start: 06-30-2024 Evaluation and manag ement of inpatient [facility] Start: 06-30-2024 Evaluation and manag ement of inpatient [facility] Start: 06-29-2024 End: 07-01-2024 Evaluation and management of inpatient KENDRA HOY [facility] Start: 11-26-2022 Encounter for preprocedural laboratory examination DR UMM LANDON . [facility] Start: 11-25-2022 End: 11-25-[address] UMM LANDON . Facility:[facility] Start: 11-20-2022 End: 11-21-[address] UMM LANDON . Facility:[facility] Start: 11-20-2022 End: 11-21-2022 Encounter for preprocedural laboratory examination DR UMM LANDON . Facility:[facility] Start: 10-06-2022 End: 10-06-2022 Patient encounter procedure Umm LANDON [facility] Start: 10-02-2022 End: 10-03-[address] KENDRA MORAN . Facility:[facility] Start: 09-30-2022 End: 10-01-[address] KENDRA MORAN . Facility:[facility] Start: 09-28-2022 Encounter for genera l adult medical examination without abnormal findings DR KENDRA MORAN . [facility] Start: 09-24-2022 End: 09-24-[address] [...] stent Umm LANDON Bilateral tubal ligation Ad hawill LANDON Catheterization of l eft heart Umm LANDON Cholecystectomy Umm LANDON Cystoscopic insertio n of ureteric stent Umm LANDON Dilation and curetta ge of uterus Umm LANDON Vaginal hysterectomy Umm LANDON Plan of Treatment Date Care Activity Detail Author Start: 06-01-2026 Adult BMI Screening Adult BMI Screening [facility] Start: 06-01-2026 Tobacco Screening Tobacco Screening [facility] Start: 03-02-2026 Adult BMI Screening Adult BMI Screening [facility] Start: 03-02-2026 Tobacco Screening Tobacco Screening [facility] Start: 07-23-2025 Influenza vaccination Influenza Vaccine [facility] Start: 06-01-2025 End: 06-01-2025 Patient encounter procedure 06/01/2025 1:00 PM EDT Office Visit [facility] [address] [place] [id number] Afsaneh Jacome, DIRECT SALES CONSULTANT-FRESH WORK INSPECTOR [address] [place], [place] [id number] [facility] Start: 05-21-2025 X-ray of left knee, four views XR knee LT 4V* [facility] Start: 05-21-2025 X-ray of right knee, two views XR knee RT 2V [facility] Start: 05-21-2025 XR Knee - left 4 Views [facility] Start: 05-21-2025 XR Knee - right 2 Views [facility] Start: 07-23-2024 COVID-19 Vaccine ( season) COVID-19 Vaccine ( season) [facility] Start: 2014 Administration of varicella zoster vaccine Zoster (Shingles) Vaccine (1 of 2) [facility] Start: 1983 DTaP,Tdap and Td Vaccines (1 - Tdap) DTaP,Tdap and Td Vaccines (1 - Tdap) [facility] Start: 1982 Adult BMI Follow Up Plan Adult BMI Follow Up Plan [facility] Start: 1976 Depression Screening Depression Screening [facility] Immunizations Immunization Date Immunization Notes Care Provider Fa cility 11-07-2021 influenza virus vaccine, unspecified formulation Farzana Marisol DIRECT SALES CONSULTANT-FRESH WORK INSPECTOR Work Phone: [facility] 04-14-2021 SARS-CoV-2 (COVID-19 ) mRNA BNT-162b2 vax Umm NILL [facility] 03-11-2021 SARS-CoV-2 (COVID-19 ) mRNA BNT-162b2 vax Umm NILL [facility] NEGATED: Highlighted row has not occurred!10-07-2021 influenza, injectable, quadrivalent, preservative free [facility] Payers Date Payer Category Payer Self-pay 2022 Medicaid [id number] 2022 Medicaid [id number] 2019 Private Health Insurance [id number] 2016 Unknown [id number] 1964 Unknown [id number] 2.16.84 [id number] 1964 Unknown [id number] 2.16.84 [id number] 1964 Unknown [id number] 2.16.84 [id number] 1964 Unknown [id number] 2.16.84 [id number] 1964 Unknown [id number] 2.16.84 [id number] 1964 Unknown [id number] 2.16.84 [id number] 1964 Unknown [id number] 2.16.84 [id number] 1964 Unknown [id number] 2.16. [id number] 1964 Unknown [id number] 2.16. [id number] 1964 Unknown [id number] 2.16. [id number] 1964 Unknown [id number] 2.16.8 [id number] 1964 Unknown [id number] 2.16.8 [id number] 1964 Unknown [id number] 2.16.8 [id number] 1959 Self-pay [id number] 1959 Unknown [id number] Unknown [id number] 2.16.8 [id number] Social History Date Type Detail Facility Start: 10-06-2022 End: 03-02-2025 Tobacco smoking status Ex-smoker (finding) [facility] Tobacco smoking status Never [facility] Start: 01-02-2021 End: 03-02-2025 Sex Assigned At Female [facility] Oliver [facility] Start: 10-07-2021 History of tobacco use Current smoke r [facility] History of tobacco use Cigarette Smoker P [facility] Start: 01-02-2021 End: 03-02-2025 Cigarettes smoked current (pack per day) - Reported 1 [facility] Start: 03-02-2025 Tobacco use and exposure Smokeless tobacco non-user [facility] Start: 03-02-2025 End: 06-01-2025 Alcoholic beverage intake Ex-drinker (finding) [facility] Start: 1964 Sex assigned at Not on file P [facility] Start: 06-27-2015 End: 03-03-2025 Sex Female (finding) [facility] Start: 1965 Sex Assigned At Female F [facility] Start: 10-07-2021 Tobacco smoking stat us MOIS Smokes tobacco daily (finding) [facility] Functional Status Date Assessment Result Facility 10-06-2022 Functional Status N/A [facility] Clinical Notes 11-25-2022 to 06-25-2025 Afsaneh Jacome, DIRECT SALES CONSULTANT-FRESH WORK INSPECTOR - 06/01/2025 1:00 PM EDT Note Date & Type Note Facility 06-25-2025 Note [facility] Subjective Aby Madrigal is a 60 [...] infarction) (CMS/HCC) Hypokalemia Coronary artery disease involving tonkawa coronary artery of tonkawa heart without angina pectoris Depression, major, severe [...] on 01/31/2025 she was evaluated at the [facility] because of chest pain. Workup was [...] are negative. Objective (more content not included)... [facility] 06-08-2025 Note Attestation with edits by [...] personal documentation from me. Bijan Licea MD, [facility] Cardiology Progress Note Subjective Subjective: Aby Madrigal is a 59 y.o. female Patient transferred to [facility] from [facility]. She presented to outside hospital with 1 [...] -- (!) 48 15 97 % -- 06/07/252005 (!) 137/47 36.4 ???C (97.5 ???F) -- [...] Value Ventricular Rate 53 Atrial Rate 53 ID Interval 164 QRS DURATION 90 QT Interval 432 QTC CALCULATION(BAZETT) 405 P [place] 41 R-[place] -5 T Wave [place] 97 Impression Sinus bradycardia Left ventricular hypertrophy ( R in aVL , Irwin product ) with Repolarization Abnormality Inferior infarct [...] Imaging Results Transthoracic echo (TTE) complete 1 1 [facility] Heart Station [address] [phone] (fax) Echocardiogram-[facility] Name: ABY MADRIGAL Study Date: 06/08/2025 08:50 AM B/P: 64 mmHg/197 mmHg HR: 49 bpm Date of : 1965 Location: [facility] Height: 64 in. Age: 59 year(s) [...] function is hyperdy (more content not included)... [facility] 06-08-2025 Note Hospital Medicine Discharge Summary Final Discharge Diagnosis: Atypical chest pain Positive stress test Coronary artery disease S/p L cardiac catheterization 06/07 Status post RCA stent placement 06/07 Hypertrophic septum Hyperaldosteronism Essential hypertension Sleep apnea Obesity class I, BMI 33.89 Admission Diagnosis: NSTEMI (non-ST elevated myocardial infarction) (CMS/[facility]) [I21.4] Hospital course: Ms. Aby Madrigal is an 59 y.o. female admitted as a transfer from [facility] where she presented with 1 day history of intermittent chest pain anterior chest nonradiating no associated diaphoresis nausea or vomiting dyspnea.. Patient said that she had a stress test done a day back and was told it to be abnormal and per ER physician at [place] the post exercise test showed ST changes [...] religiously or that it could cause an IL due to stent rethrombosis. Patient is discharged in stable condition to home on 06/08/2025. Surgical, Invasive or Diagnostic Procedures Done During Admission: Cardiac Cath Consultations During Admission: Cardiology Dear MD Moran Betty is advised to follow up with you within 1-2 weeks. Items to follow up in ambulatory setting: None Follow-up with: Cardiology Scheduled appointments: Future Appointments Date Time Provider Department Center 06/25/2025 3:30 PM Gomez Spence MD [facility] 07/24/2025 1:00 PM Feng Christie MD [facility] END[facility]CR [facility] Your medication list CHANGE how you [...] Medications These medications were sent to [facility] - [place], [place] - [address], [facility] [address] aspirin 81 mg EC tablet carvedilol 12.5 [...] mmol/L 111* 1 (more content not included)... [facility] 06-07-2025 Note Patient: Aby antony Procedure Information Date/Time: 06/07/25 1255 Procedure: Coronary angiography (Bilateral) Location: [facility] DIRECTOR OF PSYCHOLOGY 2 BIPLANE / [facility] (Cath) Providers: Omar [...] discussed with patient who. Additional Equipment Requests [facility] 06-07-2025 Note Optimize antihyperte nsives CODE STATUS full code [facility] 06-07-2025 Note - Continue protonix [facility] 06-07-2025 Note - Pain control - blood [...] gradients up to 34 mmHg w/ valsalva [facility] 06-07-2025 Note - Continue Aldactone - December of this year: Cortisol: 3.6 and Aldosterone: 7.3 [facility] 06-07-2025 Note - Continue BG checks - Continue SSI while hospitalized - Continue Farxiga - Consider obtaining A1c [facility] 06-07-2025 Note As the teaching [place] [...] and stent was placed. Jesus Welch MD [facility] Daily Progress Note - 06/07/2025 10:02 AM; Room: [address] [place] [address] Admission: 06/07/2025 2:55 AM; Length of stay: 0 days THE HOSPITALIST TEAM PREFERS TO USE [employer] CHAT FOR NON-URGENT COMMUNICATION 7AM-7PM. IF I DO NOT RESPOND WITHIN 20 MINUTES OR URGENT MATTERS, PLEASE CALL THROUGH THE PHOTOTYPESETTING EQUIPMENT MONITOR. FROM 7PM-7AM, PLEASE PAGE [phone](COVR). Code Status: Full Code Barriers to Discharge: [...] go to the hospital. She went to [facility] and was transferred to [facility]. She is anxious to see the manager of purchasing, she has seen Dr. Spence in the [...] & Plan NSTEMI (non-ST elevated myocardial infarction) ([facility]) - Pain control - blood pressure control: [...] complication, without long-term current use of insulin ([facility]) - Continue BG checks - Continue SSI [...] Lab Results Com (more content not included)... [facility] 06-07-2025 Note As above [facility] 06-07-2025 Note Pain control blood p ressure control cycle troponin continue aspirin Plavix statin currently on heparin cardiology to see patient [facility] 06-07-2025 Note Insulin Farxiga blood sugar [facility] 06-07-2025 Note PPI [facility] 06-07-2025 Note Optimize antihyperte nsives CODE STATUS full code [facility] 06-07-2025 Note Hospital Medicine History and Physical 06/07/2025 4:01 AM THE HOSPITALIST TEAM PREFERS TO USE [employer] FOR NON-URGENT COMMUNICATION 7AM-7PM. IF I DO NOT RESPOND WITHIN 20 MINUTES OR URGENT MATTERS, PLEASE CALL THROUGH THE PHOTOTYPESETTING EQUIPMENT MONITOR. FROM 7PM-7AM, PLEASE PAGE [phone](COVR). Chief Complaint No chief complaint on file. History of Present Illness Aby Madrigal is an 59 y.o. female admitted as a transfer from [facility] where she presented with 1 day history of intermittent chest pain anterior chest nonradiating no associated diaphoresis nausea or vomiting dyspnea.. Patient said that she had a stress test done a day back and was told it to be abnormal and per ER physician at [place] the post exercise test showed ST changes [...] & Plan NSTEMI (non-ST elevated myocardial infarction) ([facility]) Pain control blood pressure control cycle troponin continue aspirin Plavix statin currently on heparin cardiology to see patient Gastroesophageal reflux disease without esophagitis PPI Type 2 diabetes mellitus without complication, without long-term current use of insulin ([facility]) Insulin Farxiga blood sugar Primary aldosteronism As [...] this hospital stay by a member of [facility] Medicine. Past Medical History Medical History[1] Past [...] Social Drivers o (more content not included)... [facility] 06-01-2025 History of Present illness Narrative Aby Madrigal is a pleasant 59 y.o. female who presents for annual certified performance technologist exam. 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 Hysterectomy: yes - [...] yes Last mammogram: 2 years ago at [facility], Dr. Moran orders them Dexa Scan: n/a Colonoscopy:1-2 years ago OB History 3 Para 2 Term AB 1 Living 2 SAB 1 IAB Ectopic Multiple Live Births 2 Past Medical History: Diagnosis Date Anxiety GERD (gastroesophageal reflux disease) Heart attack (CMS-HCC) 06/29/2024 Past Surgical History: Procedure Laterality Date CHOLECYSTECTOMY CYSTOSCOPY W/ URETERAL STENT PLACEMENT DILATION AND CURETTAGE OF UTERUS HYSTERECTOMY 1999 TUBAL LIGATION Family History Problem Relation Age [...] provided. All questions answered. RTO for annual certified performance technologist exam and / or PRN. ELVIN Singletary 06/01/25 1329 documented in this encounter [employer] 05-14-2025 Note [facility] Subjective Aby Madrigal is a 59 y.o. year old female patient being seen for a follow up s/p [facility] ER visit. Patient states she was [...] infarction) (CMS/HCC) Hypokalemia Coronary artery disease involving tonkawa coronary artery of tonkawa heart without angina pectoris Depression, major, severe [...] on 01/31/2025 she was evaluated at the [facility] because of chest pain. Workup was [...] Head: Normocephalic and (more content not included)... [facility] 04-23-2025 Note [facility] Subjective Aby Madrigal is [...] infarction) (CMS/HCC) Hypokalemia Coronary artery disease involving tonkawa coronary artery of tonkawa heart without angina pectoris Depression, major, severe [...] on 01/31/2025 she was evaluated at the [facility] because of chest pain. Workup was [...] or rales. Chest: (more content not included)... [facility] 04-10-2025 Note REASON FOR VISIT + [...] metoprolol - Jun 2019 CT A/P in [place], [place] performed for abd pain, incidentally detected [...] EC tablet, [place] (more content not included)... [facility] 03-03-2025 Evaluation note Diagnosis Onset Date Resolution Viral URI acute March 03 10:35am Strain of left knee acute May 21, 2025 2:00pm [facility] Work Phone: [phone]) 241-698604-11-2025 History of Present illness Narrative* Farzana Ely, DIONNE-FRESH WORK INSPECTOR - 03/02/2025 8:45 AM EDT Aby Madrigal [...] Anxiety GERD (gastroesophageal reflux disease) Heart attack ([facility]) 06/29/2024 Hypertension MEDS Current Outpatient [...] ELVIN Ramos 03/02/25 1132 documented in this encounterDiley Ridge Medical CenterWhitewood Tax Solutions [id number] Instructions* Patient Instructions* ELVIN Ramos - 03/02/2025 [...] urethra, clitoris, and labia. documented in this encounterNorthwestern Medical CenterSmalltown [id number] NoteUT Cardiology [facility] Subjective Aby Madrigal is a 59 [...] infarction) (CMS/HCC) Hypokalemia Coronary artery disease involving tonkawa coronary artery of tonkawa heart without angina pectoris Depression, major, severe [...] on 01/31/2025 she was evaluated at the [facility] because of chest pain. Workup was [...] sounds: Normal heart so (more content not included)...[facility]03-19-2025 NoteIR VENOGRAPHY VENOUS SAMPLE Procedure: Bilateral [...] was achieved using a micropuncture set. A emereson wire was advanced into the IVC and a 5 American vascular sheathwas placed. Selective catheterization of the right adrenal vein was performed using [facility] catheter and samples obtained. There was another [...] by Gage Núñez MD on 02/07/2025 10:05 [facility] 01-18-2025 NotePatient contacted office, states she called [facility] Interventional Radiology to schedule the referral Dr. Christie had sent over, however no referral was received. Casting And Pasting Supervisor faxed referral and recent visit note to [phone].[facility]02-18-2025 NoteREASON FOR VISIT + HPI: Aby [...] metoprolol - Jun 2019 CT A/P in [place], [place] performed for abd pain, incidentally detected [...] ER (Imdur) 60 mg (more content not included)...[facility]02-03-2025 NoteWriter spoke with Tram at [facility] regarding this patient. Tram said the way the order was placed through the system they just didn't see it, Tram assured blurb writer that patient was being scheduled at the secondary infusion location. Any questions or concerns call Tram at [phone]. [facility] Note Attestation signed by Richa Viramontes MD at 10/27/2024 12:07 PM I have seen and examined the patient. I reviewed the resident/fellow note and I agree with the findings and plan. Richa Viramontes MD Interventional Pulmonary Medicine Pulmonary and Critical Care Medicine [facility] Visit Note Patient: Aby Madrigal Age: 59 y.o. : 1965 Account No.: [id number] Chief complaint: RML nodule HPI Aby Madrigal is a 59 y.o. female with hypertension, CAD status post PCI recently in June 2024, cigarette smoking who is presenting to IP clinic via telemedicine as a new patient after being referred by Dr. Jarocho Saldaña. Patient reports recent admission to [facility] ICU for hypertensive emergency. This prompted a [...] file. CTA chest 04/21/2024 at [facility]: Right middle lobe approximately 1.2 cm solid nodule appreciated Subsequent PET CT 2024 at [facility]: Right middle lobe nodule is [...] pretest probability of (more content not included)... [facility]11-12-2024 NoteREASON FOR VISIT + HPI: Aby [...] metoprolol - CT A/P Jun 2019 in [place], [place] performed for abd pain, incidentally detected [...] History: Diagnosis Date Abnormal ECG Diabetes mellitus ([facility]) Hyperlipidemia Hypertension Obstructive sleep apnea Panic attacks Stroke ([facility]) Past Surgical History: Procedure Laterality Date CEREBRAL [...] Take 25 mg by (more content not included)...[facility]10-14-2024 NoteUT Cardiology - [facility] Subjective Aby Madrigal is a [...] infarction) (CMS/HCC) Hypokalemia Coronary artery disease involving tonkawa coronary artery of tonkawa heart without angina pectoris Depression, major, severe [...] Mood and Affect: M (more content not included)...[facility]08-29-2024 Note Attestation signed by Richa Viramontes [...] Age: 59 y.o. : 1965 Account No.: [id number] Referring physician: Dr. Jarocho Saldaña Chief complaint: RML nodule HPI Aby Madrigal is a 59 y.o. female with hypertension, CAD status post PCI recently in June 2024,, cigarette smoking who is presenting to clinic via telemedicine as a new patient after being referred by Dr. Jarocho Saldaña. Patient reports recent admission to [facility] for hypertensive emergency. This prompted a [...] file. CTA chest 04/21/2024 at [facility]: Right middle lobe approximately 1 cm spiculated nodule appreciated Subsequent PET CT 2024 at [facility]: Right middle lobe nodule is [...] use alcohol. She reports (more content not included)...[facility] 07-18-2024 NoteREASON FOR VISIT + HPI: [...] metoprolol - CT A/P Jun 2019 in [place], [place] performed for abd pain, incidentally detected [...] Hypertension Obstructive sleep apnea Panic attacks Stroke ([facility]) Past Surgical History: Procedure Laterality Date CEREBRAL [...] , Rfl: carvedilol (C (more content not included)...[facility] 07-18-2024 Note07/18/24 1001 Referral Data Referral Source tube worker Referral Reason Information Patient Information Primary Caregiver Self Activities of Daily Living Assistive Device Not applicable Living Arrangement (Current/Prior to Hospitalization) Private residence Behavior Oriented Discharge Planning Support Systems Children;Family members Type of Residence Private residence Patient's goal for discharge home Patient recently discharged from [facility] to home. Resides at home alone. Discharge plan is home.[facility]08-27-2024 NotePatient sent to ED for hypotension and dizziness/lightheadednessUnMorrow County Hospital08-21-2024 NoteHospital Medicine Discharge Summary Final Discharge Diagnosis: NSTEMI Admission Diagnosis: Hypokalemia [E87.6] NSTEMI (non-ST elevated myocardial infarction) (CMS/HCC) [I21.4] Hypertensive urgency [I16.0] Adenoma of left adrenal gland [D35.02] Resistant hypertension [I1A.0] Atherosclerosis of tonkawa coronary artery of tonkawa heart without angina pectoris [I25.10] Coronary artery disease involving tonkawa coronary artery of tonkawa heart with unstable angina pectoris (CMS/HCC) [I25.110] Type 2 diabetes mellitus without complication, without long-term current use of insulin ([facility]/HCC) [E11.9] Hospital course: 59yoF with CAD s/p LAD SARKIS 11 days ago who was admitted to [facility] on 07/11 for chest pain. patient initially presented to [facility] for uncomfortable feeling in her chest and was found to have elevated troponins and new ischemic changes on EKG. Infusion and cardiology was consulted transferred to [facility] for further evaluation. Initially the patient had blood pressures up to 192/65 for which home medications were restarted. Troponins at [facility] were negative and there were no [...] 07/18/2024 8:20 AM Feng Christie MD [facility] 07/20/2024 1:00 PM Richa Viramontes MD [facility] ONC [facility] 09/05/2024 1:00 PM Bijan Licea MD [facility] Your medication list START taking these [...] Your Medications These medications were sent to [facility]/pharmacy #[id number] [facility] [address] isosorbide mononitrate ER 60 mg 24 hr [...] Renin activity In process (more content not included)...[facility]08-20-2024 Note 07/11/24 1817 Financial Resource Strain [...] How often do you attend evangelical or buddhist services? Never Do you belong to any [...] In the past 12 months has the [employer], gas, oil, or water company threatened to shut off services in your home? 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 Source tube worker Referral Reason Psychosocial assessment Patient Information Primary Caregiver Self Accompanied by/Relationship Daughter (Rosita); Scazjvnw-nc-fbo (Yesy) Activities of Daily Living Assistive Device Not applicable Living Arrangement (Current/Prior to Hospitalization) Private residence (Lives at home by herself) Ambulation Independent Dressing Independent Feeding Independent Behavior Oriented (A&Ox4) Communication Can write;Talks;Understands speaking;Understands Andorran;Reads Income Information Income Source Unemployed (receives survivor benefits) Discharge Planning Support Systems Children;Family members (daughter, [id number], son) Type of Residence Private residence Will patient need Precert for Post Acute needs? No Patient's goal for discharge Home Does the patient need discharge transport arranged? No Completed social work assessment and SDoH screening. Patient was A&Ox4 at this time. Patient's daughter, Rosita, and patient's qbstiwbw-qt-mli, Yesy, were currently present at bedside. Patient reported that she lives at home by herself and she identified her support system as her daughter, Rosita, her mghlxzov-qp-cov, Yesy, and her son, Elie. Patient endorsed [...] denied any alcohol consumption or recreational drug use.[facility] 07-11-2024 NoteHospital Medicine History and Physical 07/11/2024 12:19 PM THE HOSPITALIST TEAM PREFERS TO USE [employer] CHAT FOR COMMUNICATION 7AM-7PM. IF I DO NOT RESPOND WITHIN 15 MINUTES, PLEASE PAGE ME/CALL THROUGH THE PHOTOTYPESETTING EQUIPMENT MONITOR. FROM 7PM-7AM, PLEASE PAGE [phone](COVR) Chief Complaint Chief Complaint Patient presents with [...] presented to ER as a transfer from [facility] for NSTEMI. Patient states that last [...] Noted Hypokalemia 07/11/2024 Coronary artery disease involving tonkawa coronary artery of tonkawa heart with unstable angina pectoris ([facility]) 07/11/2024 Anxiety 06/30/2024 Type 2 diabetes mellitus without complication, without long-term current use of insulin ([facility]) 06/30/2024 Chest pain 06/30/2024 Elevated troponin 06/30/2024 Hypertensive urgency 06/30/2024 Hypomagnesemia 06/30/2024 QURESHI (dyspnea on exertion) 05/26/2024 Atherosclerosis of tonkawa coronary artery of tonkawa heart without angina pectoris 05/26/2024 Hyperlipidemia 05/26/2024 Murmur, heart 05/26/2024 Sepsis ([facility]) 07/14/2019 BV (bacterial vaginosis) 10/18/2017 GERD (gastroesophageal reflux disease) 10/18/2017 Essential hypertension 10/18/2017 TIA (transient ischemic attack) 10/18/2017 NSTEMI (non-ST elevated myocardial infarction) ([facility]) 06/29/2024 Assessment and Plan NSTEMI CAD, s/p [...] daily for GI prophylaxis (more content not included)...[facility]08-19-2024 Note [facility] Note Reason for cardiology [...] Take 1 tablet (more content not included)... [facility]08-10-2024 NoteHospital Medicine Discharge Summary Final Discharge [...] hypertension, IBS presents a direct mission from [facility] with a chief complaint of chest [...] seen on her EKG. She went to [facility] for the symptoms. Labs were completed [...] Your Medications These medications were sent to [facility]/pharmacy #[id number] [place], [place] - [address] [address] carvedilol 25 mg tablet cloNIDine 0.1 mg [...] 7 days Lab Units more content not included)...[facility]08-10-2024 NoteUTP CARDIOLOGY INPATIENT PROGRESS NOTE Reason for follow up: NSTEMI Subjective Aby Madrigal, a 59 y.o. female patient, is transferred from [facility] for continuity of care. Patient reports that 3 days ago, she woke up in the mid of the night with indigestion, and a feeling fullness, but no pressure like chest pain. She presented to [facility], where she was found to [...] MONOSABS 0.56 06/29/2024 E (more content not included)...[facility]08-09-2024 NotePatient: Aby Madrigal Procedure Information Date/Time: 06/30/24 1600 Procedure: Coronary angiography (Bilateral) Location: [facility] DIRECTOR OF PSYCHOLOGY 3 / [facility] (Cath) Providers: Brunilda [...] products. Plan discussed with attending. Additional Equipment RequestsUnMorrow County Hospital08-09-2024 Note 06/30/24 1446 Referral Data Referral Source tube worker Referral Reason Follow up;Information Patient Information Primary Caregiver Self Accompanied by/Relationship daughters at bedside Activities of Daily Living Assistive Device Not applicable Living Arrangement (Current/Prior to Hospitalization) Private residence (three to four stairs) Ambulation Independent Dressing Independent Feeding Independent Behavior Oriented Communication Talks;Understands speaking;Understands Andorran Discharge Planning Support Systems Children (daughters will [...] or questions for social work at this time.[facility]08-09-2024 Note06/30/24 1431 Admission Assessment Questions Verify [...] Not Interested Does the patient have a patient case manager assigned to them through their [...] able to send link and activate MyChart? NoSt. [facility]08-09-2024 NoteCase was discussed with the SALVADOR on 06/29/2024. I agree with the history, physical, assessment, and plan of care. I discussed the findings and therapeutic plan. I agree with the documentation, except for any updates below. Maurice Nogueira [facility] NoteHospital Medicine History and Physical 06/30/2024 1:15 AM THE HOSPITALIST TEAM PREFERS TO USE [employer] CHAT FOR COMMUNICATION 7AM-7PM. IF I DO NOT RESPOND WITHIN 15 MINUTES, PLEASE PAGE ME/CALL THROUGH THE PHOTOTYPESETTING EQUIPMENT MONITOR. FROM 7PM-7AM, PLEASE PAGE [phone](COVR) Chief Complaint [facility] with CP History of Present Illness Aby Madrigal is an 59 y.o. female who came from home with past medical history of anxiety, DM2, hypertension, IBS presents a direct mission from [facility] with a chief complaint of chest [...] seen on her EKG. She went to [facility] for the symptoms. Labs were completed [...] complication, without long-term current use of insulin ([facility]) 06/30/2024 Chest pain 06/30/2024 Elevated troponin 06/30/2024 Hypertensive urgency 06/30/2024 QURESHI (dyspnea on exertion) 05/26/2024 Atherosclerosis of [place] coronary artery of [place] heart without angina pectoris 05/26/2024 Hyperlipidemia 05/26/2024 Murmur, heart 05/26/2024 Sepsis ([facility]) 07/14/2019 BV (bacterial vaginosis) 10/18/2017 GERD (gastroesophageal reflux disease) 10/18/2017 Essential hypertension 10/18/2017 TIA (transient ischemic attack) 10/18/2017 Assessment and Plan Aby Madrigal is an 59 y.o. female who came from home with past medical history of anxiety, DM2, hypertension, IBS presents a direct mission from [facility] with a chief complaint of chest pain. #Chest pain #Elevated troponin Troponin 0.1, will continue to trend -Patient continues to have mild chest discomfort upon arrival -Continue heparin drip -CXR negative for acute process at OSH -EKG showing normal sinus rhythm -N.p.o. for possible right and left cardiac cath in a.m. -Patient with new diastolic dysfunction on echoc (more content not included)... [facility] NoteOPERATIVE NOTE OPERATION DATE: 11/25/2022 PREOPERATIVE [...] in 10 years. CC: Kendra Moran M.D.[facility] No data available for this section General Surgery [place] Evaluation note* Diagnosis Genitourinary syndrome of menopause- Primary PCB (post coital bleeding) Postcoital bleeding [facility] information available [facility] Work Phone: Evaluation note* Diagnosis Well woman exam with routine gynecological exam- Primary Routine gynecological examination [facility] No data available for this section General [facility] [place] Instructions* Attachments The following attachments cannot be sent through Care Everywhere. * Calcium and vitamin D for bone health ([place]) * Vaginal dryness ([place]) [facility] No data available for this section General Surgery [place] Reason for referral (narrative)No reason for referral information available[facility] Work Phone: Summary Purpose Family History No [...] M25.562 - Pain in left knee May 21, 025 6:26am CONSULT DR MORAN LT KNEE PAIN NX April 2:00pm Reason for Visit Admit Date Viral URI March 03, 2025 10: 35am Strain of left knee May 21, 2025 2:00 pm Additional Source Comments Patient Care team informatio n (unrecognized section and content) Document Review Attorney Relationship Specialty Start Date End Date Kendra [...] May 21, 2025 End: May 21, 2025 Document Review Attorney Relationship Specialty Start Date End Date Kendra Moran MD PCP - General Family Medicine 06/06/19 INFORMATION SOURCE (unrecogn ized section and content) DATE CREATED AUTHOR 03/26/2023 [facility] DATE CREATED AUTHOR AUTHOR'S ORGANIZ ATION 02/11/2025 [facility] DATE CREATED AUTHOR AUTHOR'S ORGANIZ ATION 06/05/2025 [facility] DATE CREATED AUTHOR AUTHOR'S ORGANIZ ATION 06/06/2025 [facility] DATE CREATED AUTHOR AUTHOR'S ORGANIZ ATION 06/27/2025 [facility] DATE CREATED AUTHOR AUTHOR'S ORGANIZ ATION 07/24/2025 [facility] Reason for Visit (unrecogniz ed section and [...] BE BASED ON THE PRIMARY CLINICAL RECORDS. [facility] [employer] [facility]. provides no warranty or guarantee of the accuracy or completeness of information in this document.
--- NOTE | 2025-07-24 23:56 | ED.WOUNDLAC1 ---
HPI - Wound/Laceration General Chief Complaint: Wound/Laceration Stated Complaint: CUT LEFT HAND POINTER FINGER Time Seen by Provider: 07/24/25 23:23 Source: patient Mode of arrival: walk-in Limitations: no limitations History of Present Illness HPI narrative: cc -fingertip laceration Earlier today the patient excellently cut the tip of her left index finger while peeling some food. Initially she applied a topical gauze like material that is supposed to stop bleeding wounds. She said that it initially seemed to stop it but when she remove the Band-Aid it started bleeding again. She does take blood thinners. She could not get the bleeding to stop so she came in for evaluation. No other issues, injuries or complaints. Related Data Home Medications ?Medication ?Instructions ?Recorded ?Confirmed aspirin 81 mg capsule 81 mg PO DAILY 04/22/24 07/08/25 clopidogrel 75 mg tablet 75 mg PO DAILY 07/01/24 07/08/25 quetiapine 100 mg tablet (Seroquel) 50 mg PO .QHS 07/24/24 07/08/25 rosuvastatin 40 mg tablet 40 mg PO DAILY 07/24/24 07/08/25 isosorbide mononitrate 60 mg 30 mg PO DAILY 07/31/24 07/08/25 tablet,extended release 24 hr lorazepam 1 mg tablet (Ativan) 1 mg PO Q8H anxiety 07/31/24 07/08/25 magnesium oxide 400 mg (241.3 mg 400 mg PO .QD 05/10/25 07/08/25 magnesium) tablet carvedilol 25 mg tablet 25 mg PO BID 07/08/25 07/08/25 Previous Rx's ?Medication ?Instructions ?Recorded canagliflozin 300 mg tablet 300 mg PO DAILY #30 tabs 11/13/24 (Invokana) pantoprazole 40 mg tablet,delayed 40 mg PO BID #60 tabs 11/13/24 release (Protonix) spironolactone 25 mg tablet 12.5 mg (1/2 x 25 mg) PO QD #30 05/10/25 tabs Allergies Allergy/AdvReac Type Severity Reaction Status Date / Time lisinopril Allergy Severe Cough Verified 07/24/25 23:15 amlodipine Allergy Mild Headache Verified 07/24/25 23:15 alprazolam (From Xanax) AdvReac Severe Watery Eye Verified 07/24/25 23:15 [facility] Medical History Elevated troponin ?R79.89 - Other specified abnormal findings of blood chemistry (ICD-10) Hypertensive emergency ?I16.1 - Hypertensive emergency (ICD-10) Acute non-ST elevation myocardial infarction (NSTEMI) ?I21.4 - Non-ST elevation (NSTEMI) myocardial infarction (ICD-10) Chest pain ?R07.9 - Chest pain, unspecified (ICD-10) CAD (coronary artery disease) ?I25.10 - Atherosclerotic heart disease of [place] coronary artery without angina pectoris (ICD-10) Hypertensive urgency ?I16.0 - Hypertensive urgency (ICD-10) HTN (hypertension) ?I10 - Essential (primary) hypertension (ICD-10) Hypertensive urgency ?I16.0 - Hypertensive urgency (ICD-10) Chest pain ?R07.9 - Chest pain, unspecified (ICD-10) Anxiety ?F41.9 - Anxiety disorder, unspecified (ICD-10) HTN (hypertension) ?I10 - Essential (primary) hypertension (ICD-10) Hypokalemia ?E87.6 - Hypokalemia (ICD-10) Hypertension, uncontrolled ?I10 - Essential (primary) hypertension (ICD-10) Chest pain ?R07.9 - Chest pain, unspecified (ICD-10) NSTEMI (non-ST elevated myocardial infarction) ?I21.4 - Non-ST elevation (NSTEMI) myocardial infarction (ICD-10) Shortness of breath ?R06.02 - Shortness of breath (ICD-10) Headache ?R51.9 - Headache, unspecified (ICD-10) Elevated d-dimer ?R79.89 - Other specified abnormal findings of blood chemistry (ICD-10) Hypertensive emergency ?I16.1 - Hypertensive emergency (ICD-10) Uncontrolled hypertension ?I10 - Essential (primary) hypertension (ICD-10) Irritable bowel syndrome ?K58.9 - Irritable bowel syndrome without diarrhea (ICD-10) H/O nephrolithotomy with removal of calculi ?Z98.890 - Other specified postprocedural states (ICD-10) ?Z87.442 - Personal history of urinary calculi (ICD-10) Kidney stone ?N20.0 - Calculus of kidney (ICD-10) Sepsis ?A41.9 - Sepsis, unspecified organism (ICD-10) H/O angiography ?Z92.89 - Personal history of other medical treatment (ICD-10) Lung nodule ?R91.1 - Solitary pulmonary nodule (ICD-10) Anxiety ?F41.9 - Anxiety disorder, unspecified (ICD-10) HTN (hypertension) ?I10 - Essential (primary) hypertension (ICD-10) Diabetes ?E11.9 - Type 2 diabetes mellitus without complications (ICD-10) TIA (transient ischemic attack) ?G45.9 - Transient cerebral ischemic attack, unspecified (ICD-10) Surgical History H/O heart artery stent ?Z95.5 - Presence of coronary angioplasty implant and graft (ICD-10) History of appendectomy ?Z90.49 - Acquired absence of other specified parts of digestive tract (ICD-10) H/O tubal ligation ?Z98.51 - Tubal ligation status (ICD-10) History of cholecystectomy ?Z90.49 - Acquired absence of other specified parts of digestive tract (ICD-10) Family History Mother Family history of cancer Father MVA (motor vehicle accident) Brother Family history of stroke Social History Within the past year, how often did you have a drink containing alcohol: never Within the past year, how often did you have six or more drinks on one occasion: never Score interpretation: A score less than 3 is consistent with normal alcohol consumption. Smoking status: Former smoker Second hand tobacco smoke exposure: No Non-prescribed substance use: denies use Previous occupational history: no Known occupational exposures/hazards: No Highest level of school completed/degree received: high school graduate Do you want help with school or training: No Are you now , , , , never or living with a partner: In a typical week, how many times do you talk on the telephone with family, friends, or neighbors: 3 or more times per week How often do you get together with friends or relatives: 3 or more times per week How often do you attend sikhism or yarsanism services: never Do you belong to any clubs or organizations such as sikhism groups unions, fraternal or athletic groups, or school groups: no Total score: 1 Score interpretation: A score of less than or equal to 1 indicates the most socially isolated. Little interest or pleasure in doing things: not at all Feeling down, depressed, or hopeless: not at all Feel stressed/tense/nervous/anxious/difficulty sleeping: not at all Do you think of yourself as: straight/heterosexual Gender Identity: female Exam Narrative Exam Narrative: Nurses notes and vital signs reviewed and patient is not hypoxic. afebrile General: Well-appearing and in no apparent distress. Skin: Warm, dry, no pallor noted. Cardiovascular: Normal peripheral perfusion. Respiratory: No accessory muscle use or respiratory distress. Musculoskeletal: Left index finger = oblique, flap laceration noted to the distal tip of the left index finger. This is superficial but there is some bleeding at this time. I do not see any foreign material but there is some residual material that appears to be a wound adhesive that she applied to the area. Normal range of motion of the fingers of the left hand. No other injury or laceration noted to the remainder of the left index finger and left hand. Neurological: A&O x4. No cranial nerve dysfunction observed. No truncal ataxia. Moves all extremities. Sensation intact. Psychiatric: Cooperative and interactive. Normal mood and affect. Constitutional Vital Signs, click to edit/add: Last Vital Signs Temp 98.1 F 07/24/25 23:16 Pulse 60 07/24/25 23:16 Resp 18 07/24/25 23:16 BP 163/85 H 07/24/25 23:16 Pulse Ox 98 07/24/25 23:16 O2 Del Method Room Air 07/24/25 23:16 Course Vital Signs Vital signs: Vital Signs Temperature 98.1 F 07/24/25 23:16 Pulse Rate 60 07/24/25 23:16 Respiratory Rate 18 07/24/25 23:16 Blood Pressure 163/85 H 07/24/25 23:16 Pulse Oximetry 98 07/24/25 23:16 Oxygen Delivery Method Room Air 07/24/25 23:16 Temperature 98.1 F 07/24/25 23:16 Pulse Rate 60 07/24/25 23:16 Respiratory Rate 18 07/24/25 23:16 Blood Pressure 163/85 H 07/24/25 23:16 Pulse Oximetry 98 07/24/25 23:16 Oxygen Delivery Method Room Air 07/24/25 23:16 MDM - Wound/Laceration MDM Narrative Medical decision making narrative: Tourniquet applied to the left index finger. I then applied wound adhesive to the oblique flap laceration. After about 30 minutes the tourniquet was removed. The fingertip was bandaged and the patient was then discharged home without any additional bleeding. She was instructed to keep that bandage on for the next 24 to 36 hours. Discharge Plan Discharge Chief Complaint: Wound/Laceration Clinical Impression: Laceration of left index finger Patient Disposition: Home, Self-Care Time of Disposition Decision: 23:59 Prescriptions / Home Meds: No Action aspirin 81 mg capsule 81 mg PO DAILY rosuvastatin 40 mg tablet 40 mg PO DAILY quetiapine [Seroquel] 100 mg tablet 50 mg PO .QHS Rx Instructions: AT HS isosorbide mononitrate 60 mg Tablet Extended Release 24 Hr 30 mg PO DAILY lorazepam [Ativan] 1 mg tablet 1 mg PO Q8H Invokana 300 mg tablet 300 mg PO DAILY Qty: 30 11RF pantoprazole [Protonix] 40 mg tablet,delayed release (DR/EC) 40 mg PO BID Qty: 60 11RF magnesium oxide 400 mg (241.3 mg magnesium) tablet 400 mg PO .QD spironolactone 25 mg Tablet 12.5 mg PO QD Qty: 30 11RF carvedilol 25 mg Tablet 25 mg PO BID clopidogrel 75 mg tablet 75 mg PO DAILY Print Language: Ukrainian Instructions: Finger Laceration (ED) Referrals: Carlito Murillo MD [Primary Care Provider, Family Practice] - 1 week
== END 2025-07-25 00:13 | disposition home or self-care (01) ==
PROVIDERS: Emergency Provider Emergency Medicine; PCP Family Medicine
DX: S61.211A Laceration without foreign body of left index finger without damage to nail, initial encounter (principal); W27.4XXA Contact with kitchen utensil, initial encounter; Z95.5 Presence of coronary angioplasty implant and graft; Z90.49 Acquired absence of other specified parts of digestive tract; Z98.51 Tubal ligation status; Z87.891 Personal history of nicotine dependence; I20.89 Other forms of angina pectoris; E11.8 Type 2 diabetes mellitus with unspecified complications; I10 Essential (primary) hypertension
CPT/HCPCS: 12001; 93798; 99282

== ENCOUNTER 2025-09-06 13:51 | Outpatient (OUT) | payer MEDICAID, SELFPAY ==
--- OUTSIDE RECORDS SUMMARY | 2025-09-06 13:53 | XMS_ITS | Patient Health Record ---
Author Organization [facility] [place] Address [address] [place] [address] Care Team Providers Care Civil Manager Name Role Phone Amadou Murillo Primary Care Provider Omar Mares Unavailable [phone] Kaelyn Escamilla Unavailable [phone] Allergies Allergen (clinical drug ingredient) Drug/Non Drug Allergy documented on EMR Reaction Allergy Type Onset Date Status amlodipine Norvasc visual changes Drug Allergy A ctive alprazolam Xanax mental status changes Drug Allergy Active lisinopril Lisinopril Unknown Drug Allergy Activ e Results Component Value Reference Range Notes MAGNESIUM Reviewed date:03/30/2025 01:10:37 PM Interpretation: Performing Lab: Notes/Report: [facility] , Magnesium 1.2 1.8-2.4 mg/dL Performing Lab: see note ML - [facility] LB PROF CHEM 8 (BAS METB) Reviewed date:04/09/2025 12:47:28 PM Interpretation: Performing Lab: Notes/Report: [facility] , Sodium 142 136-145 mmol/L Potassium 3.5 [...] Performing Lab: see note ML - [facility] LB CBC AUTO DIFF Reviewed date:09/17/2024 09:36:04 PM Interpretation: Performing Lab: Notes/Report: [facility] , White Blood Count 6.9 4.0-11.0 10 [...] Performing Lab: see note ML - [facility] LB CBC AUTO DIFF Reviewed date:09/28/2024 08:19:49 PM Interpretation: Performing Lab: Notes/Report: [facility] , White Blood Count 6.6 4.0-11.0 10 [...] Performing Lab: see note ML - [facility] LB UA (CLEAN or CATCH) FINISHER POLISHER or M ICRO IF IND. Reviewed date:09/28/2024 08:19:49 PM Interpretation: Performing Lab: Notes/Report: [facility] , Color Urine YELLOW YELLOW Clarity Urine CLEAR CLEAR Specific Grayson Urine 1.010 1.005-1.025 pH Urine 6.0 5.0-9.0 Protein Urine NEGATIVE NEG/TRACE mg/dL Glucose Urine UA >=1000 NEGATIVE mg/dL Bilirubin Urine NEGATIVE NEGATIVE Ketones Urine NEGATIVE NEGATIVE mg/dL Blood Urine NEGATIVE NEGATIVE Nitrite Urine NEGATIVE NEGATIVE Urobilinogen Urine 0.2 0.2-1.0 EU/dL Leukocyte Esterase Urine NEGATIVE NEGATIVE Urine Microscopic Indicated NO Performing Lab: see note ML - [facility] LB SARS-CoV-2 Ag* Reviewed date:09/28/2024 08:19:49 PM Interpretation: Performing Lab: Notes/Report: [facility] , SARS-CoV-2 Ag NEGATIVE NEGATIVE This test [...] Performing Lab: see note ML - [facility] LB ECG 12 lead Reviewed date:09/30/2024 04:08:40 PM Interpretation: Performing Lab: Notes/Report: Source Facility: [facility]-[address] [place] [address] [place] [address] Electrocardiograph Report Signed Patient: ABY MADRIGAL MR#: [id number] : 1965 Acct:[id number] Age/Sex: 59 / F ADM Date: 09/28/24 Loc: ER Attending Dr: Ordering Physician: Carla Greenwood D.O. Date of Service: 09/28/24 Procedure(s): ECG 12 lead Accession Number(s): [id number] cc: [facility] Test Date: 2024-09-28 Pat Name: ABY MADRIGAL Department: Room: - Gender: Female Wool Buyer: : 1965 Requested By: KENDRA MURILLO Order Number: [id number] Reading MD: KENDRA MURILLO Measurements Intervals [place] Rate: 72 P: 53 ID: 172 QRS: 22 QRSD: 90 T: 53 QT: 430 QTc: 454 Interpretive Statements 1100 Sinus rhythm 4068 Nonspecific Twave abnormality 8304 Long QTc interval 0102 ARTIFACT PRESENT 9150 abnormal ECG Compared to ECG 07/31/2024 17:07:27 ST (T wave) deviation no longer present Possible ischemia no longer present Electronically Signed On 09-29-2024 6:02:22 EST by KENDRA MURILLO Dictated By: Kendra Murillo M.D. Signed By: 09/29/24 0602 DD/ 1229 TD/TT: [employer]: CT head/brain wo con Reviewed date:09/28/2024 08:19:49 PM Interpretation: Performing Lab: Notes/Report: Source Facility: [place] [address] CT Scan Report Signed Patient: ABY MADRIGAL MR#: [id number] : 1965 Acct:[id number] Age/Sex: 59 / F ADM Date: 09/28/24 Loc: ER Attending Dr: Ordering Physician: Carla Greenwood D.O. Date of Service: 09/28/24 Procedure(s): CT head/brain wo con Accession Number(s): [id number] cc: Kendra Murillo M.D. [place] [address] Patient Name: ABY MADRIGAL MRN: [facility]:[id number] date: 1965 Sex: F Assigned Patient Location: ER Current Patient Location: ED.MAIN Accession/Order Number: [id number] Exam Date: 09/28/2024 12:41 Report Date: 09/28/2024 13:42 At the request of: CARLA GREENWOOD Procedure: CT head/brain wo con EXAM: CT [...] compared to 04/22/2024. Electronically authenticated by: ARMIDA BHAKTA Date: 09/28/2024 13:42 Dictated By: Armida Bhakta M.D. Signed By: 09/28/24 1345 DD/ 1342 TD/TT: [employer]: XR chest 1V Reviewed date:09/28/2024 08:19:49 PM Interpretation: Performing Lab: Notes/Report: Source Facility: [place] [address] XRay Report Signed Patient: ABY MADRIGAL MR#: [id number] : 1965 Acct:[id number] Age/Sex: 59 / F ADM Date: Loc: ER Attending Dr: Ordering Physician: Carla Greenwood D.O. Date of Service: 09/28/24 Procedure(s): XR chest 1V Accession Number(s): [id number] cc: Kendra Murillo M.D.; Carla Greenwood D.O. [place] [address] Patient Name: ABY MADRIGAL MRN: [id number] date: 1965 Sex: F Assigned Patient Location: ER Current Patient Location: ER Accession/Order Number: [id number] Exam Date: 09/28/2024 12:41 Report Date: 09/28/2024 13:05 At the request of: CARLA GREENWOOD Procedure: XR chest 1V EXAMINATION: XR chest [...] since prior study. Electronically authenticated by: JOSE WHEELER Date: 09/28/2024 13:05 Dictated By: Jose Wheeler M.D. Signed By: 09/28/24 1307 DD/ 1305 TD/TT: [employer]: BNP Reviewed date:10/16/2024 08:40:23 PM Interpretation: Performing Lab: Notes/Report: [facility] , NT Pro B Type Natriuretic Pept 168.0 <=900.0 pg/mL Performing Lab: see note ML - [facility] LB CBC AUTO DIFF Reviewed date:10/16/2024 08:40:23 PM Interpretation: Performing Lab: Notes/Report: [facility] , White Blood Count 6.7 4.0-11.0 10 [...] 3/uL Performing Lab: see note ML - [facility] LB PROF 14(COMP METB) Reviewed date:10/16/2024 08:40:23 PM Interpretation: Performing Lab: Notes/Report: [facility] , Sodium 145 136-145 mmol/L Potassium 3.7 [...] 1.1 Performing Lab: see note ML - [facility] PTT Reviewed date:10/16/2024 08:40:23 PM Interpretation: Performing Lab: Notes/Report: [facility] , Partial Thromboplastin Time 38.9 22.3-36.2 sec Performing Lab: see note ML - [facility] LB Prothrombin Time INR Reviewed date:10/16/2024 08:40:23 PM Interpretation: Performing Lab: Notes/Report: [facility] , Prothrombin Time 9.8 9.0-11.6 sec INR <0.93 DESIRED INR: 2.0-3.0 CONDITIONS NOT LISTED BELOW 2.5-3.5 FOR PROSTHETIC HEART VALVE REPLACEMENT 2.5-3.5 RECURRENT THROMBOSIS Performing Lab: see note ML - [facility] LB Troponin I High Sensitivity Reviewed date:10/16/2024 08:40:23 PM Interpretation: Performing Lab: Notes/Report: [facility] , Troponin I High Sensitivity 8.6 4.0-51.3 pg/mL CUT-OFF POINTS HAVE BEEN ESTABLISHED BASED ON THE FOURTH UNIVERSAL DEFINITION OF MYOCARDIAL INFARCTION. THE UPPER REFERENCE LIMIT (URL) OF TROPONIN, DEFINED THE 99TH PERCENTILE OF cTnI DISTRIBUTION IN A REFERENCE POPULATION, HAS BEEN CONFIRMED THE DECISION THRESHOLD FOR NC DIAGNOSIS. 99TH PERCENTILE = 51.4 PG/ML NOTE: HIGH-SENSITIVITY TROPONIN ASSAY IS NOT INTENDED TO BE USED IN ISOLATION BUT SHOULD BE INTERPRETED IN CONJUNCTION WITH OTHER DIAGNOSTIC AND CLINICAL INFORMATION. Performing Lab: see note ML - [facility] LB ECG 12 lead Reviewed date:10/18/2024 06:07:04 PM Interpretation: Performing Lab: Notes/Report: Source Facility: [place] [address] [place] [address] Electrocardiograph Report Signed Patient: ABY MADRIGAL MR#: [id number] : 1965 Acct:[id number] Age/Sex: 59 / F ADM Date: 10/15/24 Loc: ER Attending Dr: Ordering Physician: Julienne Ruth Date of Service: 10/15/24 Procedure(s): ECG 12 lead Accession Number(s): [id number] cc: [facility] Test Date: 2024-10-15 Pat Name: ABY MADRIGAL Department: Room: - Gender: Female Wool Buyer: : 1965 Requested By: KENDRA MURILLO Order Number: [id number] Reading MD: AGUILAR MAC Measurements Intervals [place] Rate: 72 P: 49 ID: 176 QRS: 15 QRSD: 88 T: 150 QT: 388 QTc: 412 Interpretive Statements 1100 Sinus rhythm 4564 Twave abnormality, possible lateral ischemia 5211 Minimal voltage criteria for LVH, may be normal variant 9150 abnormal ECG Compared to ECG 09/28/2024 12:29:59 Possible ischemia now present Left ventricular hypertrophy now present Electronically Signed On 10-17-2024 20:20:12 EST by AGUILAR MAC Dictated By: Aguilar Mac D.O. Signed By: 10/17/242019 DD/ 55 TD/TT: [employer]: XR chest 2V Reviewed date:10/16/2024 08:40:23 PM Interpretation: Performing Lab: Notes/Report: Source Facility: [place] [address] [place] [address] XRay Report Signed Patient: ABY MADRIGAL MR#: [id number] : 1965 Acct:[id number] Age/Sex: 59 / F ADM Date: 10/15/24 Loc: ER Attending Dr: Ordering Physician: Julienne Ruth Date of Service: 10/15/24 Procedure(s): XR chest 2V Accession Number(s): [id number] cc: Julienne Ruth; Kendra Murillo M.D. [place] [address] Patient Name: ABY MADRIGAL MRN: [facility]:[id number] date: 1965 Sex: F Assigned Patient Location: ER Current Patient Location: Accession/Order Number: [id number] Exam Date: 10/15/2024 17:15 Report Date: 10/15/2024 18:52 At the request of: JULIENNE RUTH Procedure: XR chest 2V EXAM: XR chest [...] M.D. Signed By: 10/15/241853 DD/ 51 TD/TT: [employer]: ITP Reviewed date:11/08/2024 04:14:57 PM Interpretation: Performing Lab: Notes/Report: Source Facility: [facility]-[address] [place] [address] Cardiac Rehab Report Signed Patient: ABY MADRIGAL MR#: [id number] : 1965 Acct:[id number] Age/Sex: 59 / F ADM Date: 11/06/24 Loc: CR Attending Dr: GOMEZ JAY Ordering Physician: GOMEZ JAY Date of Service: 11/07/24 Procedure(s): ITP Accession Number(s): [id number] cc: [facility] Test Date: 2024-11-07 Pat Name: ABY MADRIGAL Department: Room: - Gender: Female Wool Buyer: : 1965 Requested By: GOMEZ JAY M.D. Order Number: [id number] Reading MD: AGUILAR MAC Interpretive Statements Session Date: Electronically Signed On 11-07-2024 20:11:30 EST by AGUILAR MAC Dictated By: Aguilar Mac D.O. Signed By: 11/07/24201011/07/242010 DD/ 0950 TD/TT: [employer]: BNP Reviewed date:11/12/2024 02:05:43 PM Interpretation: Performing Lab: Notes/Report: [facility] , NT Pro B Type Natriuretic Pept 306.0 <=900.0 pg/mL Performing Lab: see note ML - [facility] LB CBC AUTO DIFF Reviewed date:11/12/2024 02:05:43 PM Interpretation: Performing Lab: Notes/Report: [facility] , White Blood Count 6.4 4.0-11.0 10 [...] Performing Lab: see note ML - [facility] LB LIPASE Reviewed date:11/12/2024 02:05:43 PM Interpretation: Performing Lab: Notes/Report: [facility] , Lipase 60.0 16.0-77.0 U/L Performing Lab: see note ML - [facility] LB PROF 14(COMP METB) Reviewed date:11/12/2024 02:05:43 PM Interpretation: Performing Lab: Notes/Report: [facility] , Sodium 147 136-145 mmol/L Potassium 3.3 [...] Performing Lab: see note ML - [facility] LB Troponin I High Sensitivity Reviewed date:11/12/2024 02:05:43 PM Interpretation: Performing Lab: Notes/Report: [facility] , Troponin I High Sensitivity 56.5 4.0-51.3 pg/mL RESULTS CALLED TO DR JONES AT 0730 CUT-OFF POINTS HAVE BEEN ESTABLISHED BASED ON THE FOURTH UNIVERSAL DEFINITION OF MYOCARDIAL INFARCTION. THE UPPER REFERENCE LIMIT (URL) OF TROPONIN, DEFINED THE 99TH PERCENTILE OF cTnI DISTRIBUTION IN A REFERENCE POPULATION, HAS BEEN CONFIRMED THE DECISION THRESHOLD FOR NC DIAGNOSIS. 99TH PERCENTILE = 51.4 PG/ML NOTE: HIGH-SENSITIVITY TROPONIN ASSAY IS NOT INTENDED TO BE USED IN ISOLATION BUT SHOULD BE INTERPRETED IN CONJUNCTION WITH OTHER DIAGNOSTIC AND CLINICAL INFORMATION. Performing Lab: see note ML - [facility] LB XR chest 1V Reviewed date:11/12/2024 02:05:43 PM Interpretation: Performing Lab: Notes/Report: Source Facility: [place] [address] [place] [address] XRay Report Signed Patient: ABY MADRIGAL MR#: [id number] : 1965 Acct:[id number] Age/Sex: 59 / F ADM Date: 11/12/24 Loc: ER Attending Dr: Ordering Physician: Elie Zabala Date of Service: 11/12/24 Procedure(s): XR chest 1V Accession Number(s): [id number] cc: Kendra Murillo M.D.; Elie Zabala [place] [address] Patient Name: ABY MADRIGAL MRN: [facility]:[id number] date: 1965 Sex: F Assigned Patient Location: ER Current Patient Location: ER Accession/Order Number: [id number] Exam Date: 11/12/2024 06:50 Report Date: 11/12/2024 07:06 At the request of: ELIE ZABALA Procedure: XR chest 1V Exam: Radiographs: XR chest 1V Reason for exam: chest pain Comparison: Chest x-ray dated 09/28/2024 XR/XR chest 1V IMPRESSION: Minimal linear atelectasis or scarring in the left lower lung. Chest is otherwise unremarkable. Electronically authenticated by: PADMAJA LINCOLN Date: 11/12/2024 07:06 Dictated By: Padmaja Lincoln M.D. Signed By: 11/12/24708 DD/ 5 TD/TT: [employer]: Troponin I High Sensitivity Reviewed date:11/12/2024 02:05:43 PM Interpretation: Performing Lab: Notes/Report: [facility] , Troponin I High Sensitivity 60.1 4.0-51.3 pg/mL RESULTS CALLED TO SHANI SAAVEDRA RN AT 0901 CUT-OFF POINTS HAVE BEEN ESTABLISHED BASED ON THE FOURTH UNIVERSAL DEFINITION OF MYOCARDIAL INFARCTION. THE UPPER REFERENCE LIMIT (URL) OF TROPONIN, DEFINED THE 99TH PERCENTILE OF cTnI DISTRIBUTION IN A REFERENCE POPULATION, HAS BEEN CONFIRMED THE DECISION THRESHOLD FOR NC DIAGNOSIS. 99TH PERCENTILE = 51.4 PG/ML NOTE: HIGH-SENSITIVITY TROPONIN ASSAY IS NOT INTENDED TO BE USED IN ISOLATION BUT SHOULD BE INTERPRETED IN CONJUNCTION WITH OTHER DIAGNOSTIC AND CLINICAL INFORMATION. Performing Lab: see note ML - [facility] LB Troponin I High Sensitivity Reviewed date:11/12/2024 02:05:43 PM Interpretation: Performing Lab: Notes/Report: Comment do a total of 4 please [facility] , Troponin I High Sensitivity 52.3 4.0-51.3 pg/mL 99TH PERCENTILE = 51.4 PG/ML NOTE: HIGH-SENSITIVITY TROPONIN ASSAY IS NOT INTENDED TO BE USED IN ISOLATION BUT SHOULD BE INTERPRETED IN CONJUNCTION WITH OTHER DIAGNOSTIC AND CLINICAL INFORMATION. RESULTS CALLED TO SONYA MAYS RN AT 1134 CUT-OFF POINTS HAVE BEEN ESTABLISHED BASED ON THE FOURTH UNIVERSAL DEFINITION OF MYOCARDIAL INFARCTION. THE UPPER REFERENCE LIMIT (URL) OF TROPONIN, DEFINED THE 99TH PERCENTILE OF cTnI DISTRIBUTION IN A REFERENCE POPULATION, HAS BEEN CONFIRMED THE DECISION THRESHOLD FOR NC DIAGNOSIS. Performing Lab: see note ML - [facility] LB CBC AUTO DIFF Reviewed date:11/13/2024 08:37:17 PM Interpretation: Performing Lab: Notes/Report: [facility] , White Blood Count 4.7 4.0-11.0 10 [...] Performing Lab: see note ML - [facility] LB PROF CHEM 8 (BAS METB) Reviewed date:11/13/2024 08:37:17 PM Interpretation: Performing Lab: Notes/Report: [facility] , Sodium 145 136-145 mmol/L Potassium 3.6 [...] Performing Lab: see note ML - [facility] LB Troponin I High Sensitivity Reviewed date:11/13/2024 08:37:17 PM Interpretation: Performing Lab: Notes/Report: [facility] , Troponin I High Sensitivity 25.8 4.0-51.3 pg/mL CUT-OFF POINTS HAVE BEEN ESTABLISHED BASED ON THE FOURTH UNIVERSAL DEFINITION OF MYOCARDIAL INFARCTION. THE UPPER REFERENCE LIMIT (URL) OF TROPONIN, DEFINED THE 99TH PERCENTILE OF cTnI DISTRIBUTION IN A REFERENCE POPULATION, HAS BEEN CONFIRMED THE DECISION THRESHOLD FOR NC DIAGNOSIS. 99TH PERCENTILE = 51.4 PG/ML NOTE: HIGH-SENSITIVITY TROPONIN ASSAY IS NOT INTENDED TO BE USED IN ISOLATION BUT SHOULD BE INTERPRETED IN CONJUNCTION WITH OTHER DIAGNOSTIC AND CLINICAL INFORMATION. Performing Lab: see note ML - [facility] LB BNP Reviewed date:11/26/2024 08:40:04 PM Interpretation: Performing Lab: Notes/Report: [facility] , NT Pro B Type Natriuretic Pept 171.0 <=900.0 pg/mL Performing Lab: see note ML - [facility] LB CBC AUTO DIFF Reviewed date:11/26/2024 08:40:04 PM Interpretation: Performing Lab: Notes/Report: [facility] , White Blood Count 6.2 4.0-11.0 10 [...] Performing Lab: see note ML - [facility] LB MAGNESIUM Reviewed date:11/26/2024 08:40:04 PM Interpretation: Performing Lab: Notes/Report: [facility] , Magnesium 2.1 1.8-2.4 mg/dL Performing Lab: see note ML - [facility] LB PROF CHEM 8 (BAS METB) Reviewed date:11/26/2024 08:40:04 PM Interpretation: Performing Lab: Notes/Report: [facility] , Sodium 142 136-145 mmol/L Potassium 3.7 [...] Performing Lab: see note ML - [facility] LB Troponin I High Sensitivity Reviewed date:11/26/2024 08:40:04 PM Interpretation: Performing Lab: Notes/Report: [facility] , Troponin I High Sensitivity 6.2 4.0-51.3 pg/mL CUT-OFF POINTS HAVE BEEN ESTABLISHED BASED ON THE FOURTH UNIVERSAL DEFINITION OF MYOCARDIAL INFARCTION. THE UPPER REFERENCE LIMIT (URL) OF TROPONIN, DEFINED THE 99TH PERCENTILE OF cTnI DISTRIBUTION IN A REFERENCE POPULATION, HAS BEEN CONFIRMED THE DECISION THRESHOLD FOR NC DIAGNOSIS. 99TH PERCENTILE = 51.4 PG/ML NOTE: HIGH-SENSITIVITY TROPONIN ASSAY IS NOT INTENDED TO BE USED IN ISOLATION BUT SHOULD BE INTERPRETED IN CONJUNCTION WITH OTHER DIAGNOSTIC AND CLINICAL INFORMATION. Performing Lab: see note ML - [facility] LB ECG 12 lead Reviewed date:11/27/2024 08:32:57 PM Interpretation: Performing Lab: Notes/Report: Source Facility: [place] [address] Electrocardiograph Report Signed Patient: ABY MADRIGAL MR#: [id number] : 1965 Acct:[id number] Age/Sex: 59 / F ADM Date: 11/25/24 Loc: ER Attending Dr: Ordering Physician: Donald Hoskins D.O. Date of Service: 11/25/24 Procedure(s): ECG 12 lead Accession Number(s): [id number] cc: [facility] Test Date: 2024-11-25 Pat Name: ABY MADRIGAL Department: Room: - Gender: Female Wool Buyer: : 1965 Requested By: KENDRA MURILLO Order Number: [id number] Reading MD: AGUILAR MAC Measurements Intervals [place] Rate: 73 P: 46 ID: 206 QRS: -2 QRSD: 90 T: 120 QT: 396 QTc: 421 Interpretive Statements 1100 Sinus rhythm 3114 Cannot rule out anterior myocardial infarction, age undetermined 4564 Twave abnormality, possible lateral ischemia 9150 abnormal ECG Compared to ECG 11/15/2024 21:58:33 Myocardial infarct finding now present Possible ischemia now present Electronically Signed On 11-27-2024 20:24:14 EST by AGUILAR MAC Dictated By: Aguilar Mac D.O. Signed By: 11/27/242023 DD/ 1015 TD/TT: [employer]: NADIA chest 1V Reviewed date:11/26/2024 08:40:04 PM Interpretation: Performing Lab: Notes/Report: Source Facility: [place] [address] XRay Report Signed Patient: ABY MADRIGAL MR#: [id number] : 1965 Acct:[id number] Age/Sex: 59 / F ADM Date: 11/25/24 Loc: ER Attending Dr: Ordering Physician: Donald Hoskins D.O. Date of Service: 11/25/24 Procedure(s): XR chest 1V Accession Number(s): [id number] cc: Donald Hoskins D.O.; Kendra Murillo M.D. [place] [address] Patient Name: ABY MADRIGAL MRN: [id number] date: 1965 Sex: F Assigned Patient Location: ER Current Patient Location: ER Accession/Order Number: [id number] Exam Date: 11/25/2024 10:52 Report Date: 11/25/2024 11:27 At the request of: DONLAD HOSKINS Procedure: XR chest 1V EXAM: XR [...] acute cardiopulmonary process. Electronically authenticated by: EMMA FENG Date: 11/25/2024 11:27 Dictated By: Emma Feng M.D. Signed By: 11/25/24 1130 DD/ 1127 TD/TT: [employer]: JULIANN Reviewed date:12/07/2024 01:55:15 PM Interpretation: Performing Lab: Notes/Report: Source Facility: [place] [address] [place] [address] Cardiac Rehab Report Signed Patient: ABY MADRIGAL MR#: [id number] : 1965 Acct:[id number] Age/Sex: 59 / F ADM Date: 12/06/24 Loc: CR Attending Dr: GOMEZ JAY Ordering Physician: Aguilar Mac D.O. Date of Service: 12/06/24 Procedure(s): ITP Accession Number(s): [id number] cc: [facility] Test Date: 2024-12-06 Pat Name: ABY MADRIGAL Department: Room: - Gender: Female Wool Buyer: : 1965 Requested By: AGUILAR MAC Order Number: [id number] [place] MD: AGUILAR MAC Interpretive Statements Session Date: Electronically Signed On 12-06-2024 20:54:07 EST by AGUILAR MAC Dictated By: Aguilar Mac D.O. Signed By: 12/06/242053 DD/ 8 TD/TT: [employer]: JULIANN Reviewed date:01/06/2025 02:27:02 PM Interpretation: Performing Lab: Notes/Report: Source Facility: [place] [address] Cardiac Rehab Report Signed Patient: ABY MADRIGAL MR#: [id number] : 1965 Acct:[id number] Age/Sex: 59 / F ADM Date: 01/05/25 Loc: CR Attending Dr: GOMEZ JAY Ordering Physician: GOMEZ JAY Date of Service: 01/05/25 Procedure(s): ITP Accession Number(s): [id number] cc: [facility] Test Date: 2025-01-05 Pat Name: ABY MADRIGAL Department: Room: - Gender: Female Wool Buyer: : 1965 Requested By: GOMEZ JAY M.D. Order Number: [id number] [place] MD: AGUILAR MAC Interpretive Statements Session Date: Electronically Signed On 01-06-2025 8:46:05 EST by AGUILAR MAC Dictated By: Aguilar Mac D.O. Signed By: 01/06/2546 01/06/2546 DD/ 1003 TD/TT: [employer]: BNP Reviewed date:01/31/2025 06:41:07 PM Interpretation: Performing Lab: Notes/Report: [facility] , NT Pro B Type Natriuretic Pept 196.0 <=900.0 pg/mL Performing Lab: see note ML - [facility] LB CBC AUTO DIFF Reviewed date:01/31/2025 06:41:07 PM Interpretation: Performing Lab: Notes/Report: [facility] , White Blood Count 6.5 4.0-11.0 10 [...] Performing Lab: see note ML - [facility] LB LIPASE Reviewed date:01/31/2025 06:41:07 PM Interpretation: Performing Lab: Notes/Report: [facility] , Lipase 72.0 16.0-77.0 U/L Performing Lab: see note ML - [facility] PROF 14(COMP METB) Reviewed date:01/31/2025 06:41:08 PM Interpretation: Performing Lab: Notes/Report: [facility] , Sodium 142 136-145 mmol/L Potassium 3.5 [...] 1.0 Performing Lab: see note ML - [facility] Troponin I High Sensitivity Reviewed date:01/31/2025 06:41:08 PM Interpretation: Performing Lab: Notes/Report: [facility] , Troponin I High Sensitivity 9.3 4.0-51.3 pg/mL CUT-OFF POINTS HAVE BEEN ESTABLISHED BASED ON THE FOURTH UNIVERSAL DEFINITION OF MYOCARDIAL INFARCTION. THE UPPER REFERENCE LIMIT (URL) OF TROPONIN, DEFINED THE 99TH PERCENTILE OF cTnI DISTRIBUTION IN A REFERENCE POPULATION, HAS BEEN CONFIRMED THE DECISION THRESHOLD FOR NC DIAGNOSIS. 99TH PERCENTILE = 51.4 PG/ML NOTE: HIGH-SENSITIVITY TROPONIN ASSAY IS NOT INTENDED TO BE USED IN ISOLATION BUT SHOULD BE INTERPRETED IN CONJUNCTION WITH OTHER DIAGNOSTIC AND CLINICAL INFORMATION. Performing Lab: see note ML - [facility] LB ECG 12 lead Reviewed date:01/31/2025 06:41:08 PM Interpretation: Performing Lab: Notes/Report: Source Facility: [facility]-[address] [place] [address] [address] Electrocardiograph Report Signed Patient: ABY MADRIGAL MR#: [id number] : 1965 Acct:[id number] Age/Sex: 59 / F ADM Date: 01/31/25 Loc: ER Attending Dr: Ordering Physician: Kyung Jones D.O. Date of Service: 01/31/25 Procedure(s): ECG 12 lead Accession Number(s): [id number] cc: [facility] Test Date: 2025-01-31 Pat Name: ABY MADRIGAL Department: Room: - Gender: Female Wool Buyer: : 1965 Requested By: [id number] Order Number: [id number] Reading MD: GOMEZ JAY M.D. Measurements Intervals [place] Rate: 69 P: 63 ID: 178 QRS: 47 QRSD: 90 T: 150 QT: 382 QTc: 402 Interpretive Statements 1100 Sinus rhythm [address] depression 4564 Twave abnormality, possible lateral ischemia 9150 abnormal ECG Compared to ECG 11/25/2024 10:15:08 No significant changes Electronically Signed On 01-31-2025 9:30:00 EDT by GOMEZ JAY M.D. Dictated By: GOMEZ JAY Signed By: 01/31/25 0930 DD/ 0027 TD/TT: [employer]: Troponin I High Sensitivity Reviewed date:01/31/2025 06:41:07 PM Interpretation: Performing Lab: Notes/Report: [facility] , Troponin I High Sensitivity 8.9 4.0-51.3 pg/mL CUT-OFF POINTS HAVE BEEN ESTABLISHED BASED ON THE FOURTH UNIVERSAL DEFINITION OF MYOCARDIAL INFARCTION. THE UPPER REFERENCE LIMIT (URL) OF TROPONIN, DEFINED THE 99TH PERCENTILE OF cTnI DISTRIBUTION IN A REFERENCE POPULATION, HAS BEEN CONFIRMED THE DECISION THRESHOLD FOR NC DIAGNOSIS. 99TH PERCENTILE = 51.4 PG/ML NOTE: HIGH-SENSITIVITY TROPONIN ASSAY IS NOT INTENDED TO BE USED IN ISOLATION BUT SHOULD BE INTERPRETED IN CONJUNCTION WITH OTHER DIAGNOSTIC AND CLINICAL INFORMATION. Performing Lab: see note ML - [facility] LB ITP Reviewed date:02/18/2025 04:19:26 PM Interpretation: Performing Lab: Notes/Report: Source Facility: [place] [address] [place] [address] Cardiac Rehab Report Signed Patient: ABY MADRIGAL MR#: [id number] : 1965 Acct:[id number] Age/Sex: 59 / F ADM Date: 02/14/25 Loc: CR Attending Dr: GOMEZ JAY Ordering Physician: GOMEZ JAY Date of Service: 02/05/25 Procedure(s): ITP Accession Number(s): [id number] cc: [facility] Test Date: 2025-02-05 Pat Name: ABY MADRIGAL Department: Room: - Gender: Female Wool Buyer: : 1965 Requested By: GOMEZ JAY M.D. Order Number: [id number] Reading MD: AGUILAR MAC Interpretive Statements Session Date: Electronically Signed On 02-17-2025 14:29:26 EDT by AGUILAR MAC Dictated By: Aguilar Mac D.O. Signed By: 02/17/25 1429 02/17/25 1429 DD/ 1534 TD/TT: [employer]: JULIANN Reviewed date:02/18/2025 04:19:26 PM Interpretation: Performing Lab: Notes/Report: Source Facility: [place] [address] [place] [address] Cardiac Rehab Report Signed Patient: ABY MADRIGAL MR#: [id number] : 1965 Acct:[id number] Age/Sex: 59 / F ADM Date: 02/14/25 Loc: CR Attending Dr: GOMEZ JAY Ordering Physician: Aguilar Mac D.O. Date of Service: 02/14/25 Procedure(s): ITP Accession Number(s): [id number] cc: [facility] Test Date: 2025-02-14 Pat Name: ABY MADRIGAL Department: Room: - Gender: Female Wool Buyer: : 1965 Requested By: AGUILAR MAC Order Number: [id number] Reading MD: AGUILAR MAC Interpretive Statements Session Date: Electronically Signed On 02-17-2025 14:29:51 EDT by AGUILAR MAC Dictated By: Aguilar Mac D.O. Signed By: 02/17/25142902/17/251429 DD/ 19 TD/TT: [employer]: CBC AUTO DIFF Reviewed date:03/26/2025 08:13:17 PM Interpretation: Performing Lab: Notes/Report: The [facility] , White Blood Count 7.3 4.0-11.0 10 [...] Performing Lab: see note ML - The [facility] LB CRP Reviewed date:03/26/2025 08:13:17 PM Interpretation: Performing Lab: Notes/Report: [facility] , C Reactive Protein 0.89 <=0.50 mg/dL Performing Lab: see note ML - The [facility] LB LIPASE Reviewed date:03/26/2025 08:13:17 PM Interpretation: Performing Lab: Notes/Report: The [facility] , Lipase 36.0 16.0-77.0 U/L Performing Lab: see note ML - The [facility] LB PROF 14(COMP METB) Reviewed date:03/26/2025 08:13:17 PM Interpretation: Performing Lab: Notes/Report: The [facility] , Sodium 139 136-145 mmol/L Potassium 2.5 [...] Performing Lab: see note ML - The [facility] LB Troponin I High Sensitivity Reviewed date:03/26/2025 08:13:17 PM Interpretation: Performing Lab: Notes/Report: [facility] , Troponin I High Sensitivity 11.9 4.0-51.3 pg/mL CUT-OFF POINTS HAVE BEEN ESTABLISHED BASED ON THE FOURTH UNIVERSAL DEFINITION OF MYOCARDIAL INFARCTION. THE UPPER REFERENCE LIMIT (URL) OF TROPONIN, DEFINED THE 99TH PERCENTILE OF cTnI DISTRIBUTION IN A REFERENCE POPULATION, HAS BEEN CONFIRMED THE DECISION THRESHOLD FOR NC DIAGNOSIS. 99TH PERCENTILE = 51.4 PG/ML NOTE: HIGH-SENSITIVITY TROPONIN ASSAY IS NOT INTENDED TO BE USED IN ISOLATION BUT SHOULD BE INTERPRETED IN CONJUNCTION WITH OTHER DIAGNOSTIC AND CLINICAL INFORMATION. Performing Lab: see note ML - The [facility] LB ECG 12 lead Reviewed date:03/26/2025 08:13:17 PM Interpretation: Performing Lab: Notes/Report: Source Facility: [facility]-[address] [place] [address] [place] [address] Electrocardiograph Report Signed Patient: ABY MADRIGAL MR#: [id number] : 1965 Acct:[id number] Age/Sex: 59 / F ADM Date: 03/25/25 Loc: ER Attending Dr: Ordering Physician: Kyung Jones D.O. Date of Service: 03/25/25 Procedure(s): ECG 12 lead Accession Number(s): [id number] cc: [facility] Test Date: 2025-03-25 Pat Name: ABY MADRIGAL Department: Room: - Gender: Female Wool Buyer: : 1965 Requested By: [id number] Order Number: [id number] Reading MD: GOMEZ JAY M.D. Measurements Intervals [place] Rate: 79 P: 50 ID: 182 QRS: 11 QRSD: 96 T: 181 QT: 350 QTc: 384 Interpretive Statements 1100 Sinus rhythm [address] depression 4564 Twave abnormality, possible lateral ischemia 9150 abnormal ECG Compared to ECG 01/31/2025 00:27:11 No significant changes Electronically Signed On 03-26-2025 7:48:20 EDT by GOMEZ JAY M.D. Dictated By: GOMEZ JAY Signed By: 03/26/25 0748 DD/ 20 TD/TT: [employer]: MAGNESIUM Reviewed date:03/26/2025 08:13:17 PM Interpretation: Performing Lab: Notes/Report: [facility] , Magnesium 0.9 1.8-2.4 mg/dL RESULTS CALLED TO NASIR SNYDER RN @BY Mirtha Oconnor at 0155 Performing Lab: see note ML - [facility] LB Troponin I High Sensitivity Reviewed date:03/26/2025 08:13:17 PM Interpretation: Performing Lab: Notes/Report: [facility] , Troponin I High Sensitivity 16.2 4.0-51.3 pg/mL CUT-OFF POINTS HAVE BEEN ESTABLISHED BASED ON THE FOURTH UNIVERSAL DEFINITION OF MYOCARDIAL INFARCTION. THE UPPER REFERENCE LIMIT (URL) OF TROPONIN, DEFINED THE 99TH PERCENTILE OF cTnI DISTRIBUTION IN A REFERENCE POPULATION, HAS BEEN CONFIRMED THE DECISION THRESHOLD FOR NC DIAGNOSIS. 99TH PERCENTILE = 51.4 PG/ML NOTE: HIGH-SENSITIVITY TROPONIN ASSAY IS NOT INTENDED TO BE USED IN ISOLATION BUT SHOULD BE INTERPRETED IN CONJUNCTION WITH OTHER DIAGNOSTIC AND CLINICAL INFORMATION. Performing Lab: see note - [facility] PROF 14(COMP METB) Reviewed date:03/30/2025 01:10:37 PM Interpretation: Performing Lab: Notes/Report: The [facility] , Sodium 141 136-145 mmol/L Potassium 3.1 [...] 0.9 Performing Lab: see note ML - [facility] CBC AUTO DIFF Reviewed date:04/01/2025 06:23:54 PM Interpretation: Performing Lab: Notes/Report: [facility] , White Blood Count 6.5 4.0-11.0 10 [...] Performing Lab: see note ML - The [facility] LB PROF 14(COMP METB) Reviewed date:04/01/2025 06:27:24 PM Interpretation: Performing Lab: Notes/Report: [facility] , Sodium 141 136-145 mmol/L Potassium 2.9 [...] Globulin Ratio 1.0 Performing Lab: see note [facility] UA RANDOM W or MICROSCOPIC Reviewed date:04/02/2025 02:24:30 PM Interpretation: Performing Lab: Notes/Report: [facility] , Color Urine LT. YELLOW YELLOW Clarity Urine CLEAR CLEAR Specific Grayson Urine <=1.005 1.005-1.025 pH Urine 6.0 5.0-9.0 [...] NO Performing Lab: see note ML - [facility] LB LAB TESTING Reviewed date:04/25/2025 09:59:02 PM Interpretation: Performing Lab: Notes/Report: 633689 Reducing Substances - Fecal [facility] , Miscellaneous Test COMMENT . Test Ordered: [id number] Reducing Substances - Fecal Reducing Substances - Fecal Normal Y8 Reference Range: Normal Performed at: Y8 - [facility] [address] [id number] Stained Glass Joiner: Navneet Simeon [facility], Phone: [phone] Performed at: - [facility] [id number] Stained Glass Joiner: Gopi Romeo PhD, Phone: [phone] Performing Lab: see note LC - [facility] LB C. Difficile PCR Reviewed date:04/19/2025 06:15:21 PM Interpretation: Performing Lab: Notes/Report: [facility] , C. Difficile PCR NEGATIVE Performing Lab: see note ML - The [facility] LB XR chest 1V Reviewed date:11/16/2024 06:07:28 PM Interpretation: Performing Lab: Notes/Report: Source Facility: [facility]-[address] [place] [address] [place] [address] XRay Report Signed Patient: ABY MADRIGAL MR#: [id number] : 1965 Acct:[id number] Age/Sex: 59 / F ADM Date: 11/15/24 Loc: ER Attending Dr: Ordering Physician: Donald Hoskins D.O. Date of Service: 11/15/24 Procedure(s): XR chest 1V Accession Number(s): [id number] cc: Donald Hoskins D.O.; Kendra Murillo M.D. [place] [address] Patient Name: ABY MADRIGAL MRN: TBH:[id number] date: 1965 Sex: F Assigned Patient Location: ER Current Patient Location: ER Accession/Order Number: [id number] Exam Date: 11/15/2024 22:18 Report Date: 11/15/2024 [...] with any questions. Electronically authenticated by: SAE CM Date: 11/15/2024 22:54 Dictated By: Sae Cm D.O. Signed By: 11/15/242255 DD/ 53 TD/TT: [employer]: ECG 12 lead Reviewed date:11/18/2024 09:02:39 PM Interpretation: Performing Lab: Notes/Report: Source Facility: [place] [address] [place] [address] Electrocardiograph Report Signed Patient: ABY MADRIGAL MR#: [id number] : 1965 Acct:[id number] Age/Sex: 59 / F ADM Date: 11/15/24 Loc: ER Attending Dr: Ordering Physician: Donald Hoskins D.O. Date of Service: 11/15/24 Procedure(s): ECG 12 lead Accession Number(s): [id number] cc: [facility] Test Date: 2024-11-15 Pat Name: ABY MADRIGAL Department: Room: - Gender: Female Wool Buyer: : 1965 Requested By: Donald Hoskins Order Number: [id number] Reading MD: KENDRA MURILLO Measurements Intervals [place] Rate: 75 P: 54 ID: 184 QRS: 18 QRSD: 88 T: 97 QT: 376 QTc: 405 Interpretive Statements 1100 Sinus rhythm 4068 Nonspecific Twave abnormality 9130 borderline ECG Compared to ECG 11/15/2024 21:58:03 Ventricular premature complex(es) no longer present Dictated By: Kendra Murillo M.D. Signed By: <Electronically signed by Kendra Murillo M.D.> 11/17/2453 DD/ 57 TD/TT: [employer]: Troponin I High Sensitivity Reviewed date:11/16/2024 06:07:28 PM Interpretation: Performing Lab: Notes/Report: [facility] , Troponin I High Sensitivity 8.4 4.0-51.3 pg/mL 99TH PERCENTILE = 51.4 PG/ML NOTE: HIGH-SENSITIVITY TROPONIN ASSAY IS NOT INTENDED TO BE USED IN ISOLATION BUT SHOULD BE INTERPRETED IN CONJUNCTION WITH OTHER DIAGNOSTIC AND CLINICAL INFORMATION. CUT-OFF POINTS HAVE BEEN ESTABLISHED BASED ON THE FOURTH UNIVERSAL DEFINITION OF MYOCARDIAL INFARCTION. THE UPPER REFERENCE LIMIT (URL) OF TROPONIN, DEFINED THE 99TH PERCENTILE OF cTnI DISTRIBUTION IN A REFERENCE POPULATION, HAS BEEN CONFIRMED THE DECISION THRESHOLD FOR NC DIAGNOSIS. Performing Lab: see note ML - [facility] LB PROF 14(COMP METB) Reviewed date:11/16/2024 06:07:28 PM Interpretation: Performing Lab: Notes/Report: [facility] , Sodium 145 136-145 mmol/L Potassium 3.6 [...] Performing Lab: see note ML - The [facility] LB CBC AUTO DIFF Reviewed date:11/16/2024 06:07:28 PM Interpretation: Performing Lab: Notes/Report: [facility] , White Blood Count 6.7 4.0-11.0 10 [...] Performing Lab: see note ML - [facility] LB BNP Reviewed date:11/16/2024 06:07:28 PM Interpretation: Performing Lab: Notes/Report: [facility] , NT Pro B Type Natriuretic Pept 199.0 <=900.0 pg/mL Performing Lab: see note ML - [facility] LB Troponin I High Sensitivity Reviewed date:11/12/2024 02:22:59 PM Interpretation: Performing Lab: Notes/Report: [facility] , Troponin I High Sensitivity 50.0 4.0-51.3 pg/mL CUT-OFF POINTS HAVE BEEN ESTABLISHED BASED ON THE FOURTH UNIVERSAL DEFINITION OF MYOCARDIAL INFARCTION. THE UPPER REFERENCE LIMIT (URL) OF TROPONIN, DEFINED THE 99TH PERCENTILE OF cTnI DISTRIBUTION IN A REFERENCE POPULATION, HAS BEEN CONFIRMED THE DECISION THRESHOLD FOR NC DIAGNOSIS. 99TH PERCENTILE = 51.4 PG/ML NOTE: HIGH-SENSITIVITY TROPONIN ASSAY IS NOT INTENDED TO BE USED IN ISOLATION BUT SHOULD BE INTERPRETED IN CONJUNCTION WITH OTHER DIAGNOSTIC AND CLINICAL INFORMATION. Performing Lab: see note ML - [facility] LB ECG 12 lead Reviewed date:11/14/2024 10:08:15 AM Interpretation: Performing Lab: Notes/Report: Source Facility: [place] [address] Electrocardiograph Report Signed Patient: ABY MADRIGAL MR#: [id number] : 1965 Acct:[id number] Age/Sex: 59 / F ADM Date: 11/12/24 Loc: MS 212-[address]: Kendra Murillo M.D. Ordering Physician: Elie Zabala Date of Service: 11/12/24 Procedure(s): ECG 12 lead Accession Number(s): [id number] cc: [facility] Test Date: 2024-11-12 Pat Name: ABY MADRIGAL Department: Room: - Gender: Female Wool Buyer: : 1965 Requested By: KENDRA MURILLO Order Number: [id number] Reading MD: AGUILAR MAC Measurements Intervals [place] Rate: 81 P: 40 ID: 156 QRS: 15 QRSD: 86 T: 193 QT: 348 QTc: 385 Interpretive Statements 1100 Sinus rhythm 4664 Twave abnormality, possible inferolateral ischemia 9150 abnormal ECG Compared to ECG 10/15/2024 16:56:32 Left ventricular hypertrophy no longer present Possible ischemia still present Electronically Signed On 11-13-2024 22:38:41 EST by AGUILAR MAC Dictated By: Aguilar Mac D.O. Signed By: 11/13/24 2238 DD/ 0601 TD/TT: [employer]: RT pulmonary function test Reviewed date:11/08/2024 04:14:57 PM Interpretation: Performing Lab: Notes/Report: Source Facility: [place] [address] Respiratory Report Signed Patient: ABY MADRIGAL MR#: [id number] : 1965 Acct:[id number] Age/Sex: 59 / F ADM Date: 11/03/24 Loc: CARD Attending Dr: AmayaStaff Physician Norton Ordering Physician: Francine Bee M.D. Date of Service: 11/03/24 Procedure(s): RT pulmonary function test Accession Number(s): [id number] cc: [facility] Test Date: 2024-11-03 Pat Name: ABY MADRIGAL Department: Room: - Gender: Female Wool Buyer: Mary Peoples RRT : 1965 Requested By: [id number] Order Number: [id number] Reading MD: Marlon Beal Interpretive Statements Pulmonary [...] 11/08/24 0659 11/08/24 0659 DD/ 1255 TD/TT: [employer]: Troponin I High Sensitivity Reviewed date:09/28/2024 08:19:49 PM Interpretation: Performing Lab: Notes/Report: [facility] , Troponin I High Sensitivity 9.7 4.0-51.3 pg/mL CUT-OFF POINTS HAVE BEEN ESTABLISHED BASED ON THE FOURTH UNIVERSAL DEFINITION OF MYOCARDIAL INFARCTION. THE UPPER REFERENCE LIMIT (URL) OF TROPONIN, DEFINED THE 99TH PERCENTILE OF cTnI DISTRIBUTION IN A REFERENCE POPULATION, HAS BEEN CONFIRMED THE DECISION THRESHOLD FOR NC DIAGNOSIS. 99TH PERCENTILE = 51.4 PG/ML NOTE: HIGH-SENSITIVITY TROPONIN ASSAY IS NOT INTENDED TO BE USED IN ISOLATION BUT SHOULD BE INTERPRETED IN CONJUNCTION WITH OTHER DIAGNOSTIC AND CLINICAL INFORMATION. Performing Lab: see note ML - [facility] LB PROF 14(COMP METB) Reviewed date:09/28/2024 08:19:49 PM Interpretation: Performing Lab: Notes/Report: [facility] , Sodium 145 136-145 mmol/L Potassium 3.4 [...] 1.0 Performing Lab: see note ML - [facility] Troponin I High Sensitivity Reviewed date:09/17/2024 09:36:04 PM Interpretation: Performing Lab: Notes/Report: [facility] , Troponin I High Sensitivity 9.2 4.0-51.3 pg/mL NOTE: HIGH-SENSITIVITY TROPONIN ASSAY IS NOT INTENDED TO BE USED IN ISOLATION BUT SHOULD BE INTERPRETED IN CONJUNCTION WITH OTHER DIAGNOSTIC AND CLINICAL INFORMATION. CUT-OFF POINTS HAVE BEEN ESTABLISHED BASED ON THE FOURTH UNIVERSAL DEFINITION OF MYOCARDIAL INFARCTION. THE UPPER REFERENCE LIMIT (URL) OF TROPONIN, DEFINED THE 99TH PERCENTILE OF cTnI DISTRIBUTION IN A REFERENCE POPULATION, HAS BEEN CONFIRMED THE DECISION THRESHOLD FOR NC DIAGNOSIS. 99TH PERCENTILE = 51.4 PG/ML Performing Lab: see note ML - [facility] PROF CHEM 8 (BAS METB) Reviewed date:09/17/2024 09:36:04 PM Interpretation: Performing Lab: Notes/Report: [facility] , Sodium 144 136-145 mmol/L Potassium 3.0 3.5-5.1 mmol/L Chloride 109 98-107 mmol/L Carbon Dioxide 26.0 21.0-32.0 mmol/L Anion Gap 12.0 Glucose 155 74-106 mg/dL Blood Urea Nitrogen 14.0 7.0-18.0 mg/dL Creatinine 1.20 0.55-1.02 mg/dL Estimated GFR ( Candace 55 >=60 mL/min/1.73m 2 Estimated GFR (Non- Susi 46 >=60 mL/min/1.73m 2 BUN Creatinine Ratio 11.7 Calcium 9.4 8.5-10.1 mg/dL Performing Lab: see note - [facility] LB E coli Shiga Toxin EIA Reviewed date:04/22/2025 04:45:20 PM Interpretation: Performing Lab: Notes/Report: [facility] , E coli Shiga Toxin EIA See Below For Report E coli Shiga Toxin EIA E coli Shiga Toxin EIA Negative E coli Shiga Toxin EIA E coli Shiga Toxin EIA Performed at: [facility] E coli Shiga Toxin EIA E coli Shiga Toxin EIA [address] [place], [place] [id number] E coli Shiga Toxin EIA E coli Shiga Toxin EIA Stained Glass Joiner: Gopi Romeo PhD, Phone: [phone] E coli Shiga Toxin EIA Performing Lab: see note - [facility] LB SEE REPORT - [employer] Id information not found for OBX-specific type proof reproducer legend Salmonella/Shigella Screen Reviewed date:04/24/2025 04:35:14 PM Interpretation: Performing Lab: Notes/Report: [facility] , Salmonella/Shigella Screen See Below For Report Salmonella/Shigella Screen Salmonella/Shigella Screen No Salmonella or Shigella recovered. Salmonella/Shigella Screen Performing Lab: see note [facility] LB Campylobacter Culture Reviewed date:04/24/2025 04:35:14 PM Interpretation: Performing Lab: Notes/Report: [facility] , Campylobacter Culture See Below For Report Campylobacter Culture No Campylobacter species isolated. Performing Lab: see note [facility] LB E coli Shiga Toxin EIA Reviewed date:04/24/2025 04:35:14 PM Interpretation: Performing Lab: Notes/Report: [facility] , E coli Shiga Toxin EIA See Below For Report E coli Shiga Toxin EIA E coli Shiga Toxin EIA Negative E coli Shiga Toxin EIA E coli Shiga Toxin EIA Performed at: - [facility] [place] E coli Shiga Toxin EIA E coli Shiga Toxin EIA [address] [place], [place] [id number] E coli Shiga Toxin EIA E coli Shiga Toxin EIA Stained Glass Joiner: Gopi Romeo PhD, Phone: [phone] E coli Shiga Toxin EIA Performing Lab: see note LC - [facility] LB SEE REPORT - [employer] Id information not found for OBX-specific type proof reproducer legend BNP Reviewed date:05/10/2025 08:41:09 AM Interpretation: Performing Lab: Notes/Report: Comment From ER blood if possible [facility] , NT Pro B Type Natriuretic Pept 174.0 <=900.0 pg/mL Performing Lab: see note ML - [facility] LB CBC AUTO DIFF Reviewed date:05/09/2025 05:41:53 PM Interpretation: Performing Lab: Notes/Report: [facility] , White Blood Count 4.8 4.0-11.0 10 [...] 3/uL Performing Lab: see note ML - [facility] LIPASE Reviewed date:05/09/2025 05:41:53 PM Interpretation: Performing Lab: Notes/Report: [facility] , Lipase 33.0 16.0-77.0 U/L Performing Lab: see note ML - [facility] PROF 14(COMP METB) Reviewed date:05/09/2025 05:41:53 PM Interpretation: Performing Lab: Notes/Report: [facility] , Sodium 144 136-145 mmol/L Potassium 4.2 [...] Performing Lab: see note ML - [facility] Troponin I High Sensitivity Reviewed date:05/09/2025 05:41:53 PM Interpretation: Performing Lab: Notes/Report: [facility] , Troponin I High Sensitivity 6.4 4.0-51.3 pg/mL CUT-OFF POINTS HAVE BEEN ESTABLISHED BASED ON THE FOURTH UNIVERSAL DEFINITION OF MYOCARDIAL INFARCTION. THE UPPER REFERENCE LIMIT (URL) OF TROPONIN, DEFINED THE 99TH PERCENTILE OF cTnI DISTRIBUTION IN A REFERENCE POPULATION, HAS BEEN CONFIRMED THE DECISION THRESHOLD FOR NC DIAGNOSIS. 99TH PERCENTILE = 51.4 PG/ML NOTE: HIGH-SENSITIVITY TROPONIN ASSAY IS NOT INTENDED TO BE USED IN ISOLATION BUT SHOULD BE INTERPRETED IN CONJUNCTION WITH OTHER DIAGNOSTIC AND CLINICAL INFORMATION. Performing Lab: see note ML - [facility] LB ECG 12 lead Reviewed date:05/09/2025 09:12:38 PM Interpretation: Performing Lab: Notes/Report: Source Facility: [place] [address] [place] [address] Electrocardiograph Report Signed Patient: ABY MADRIGAL MR#: [id number] : 1965 Acct:[id number] Age/Sex: 59 / F ADM Date: 05/09/25 Loc: ER Attending Dr: Ordering Physician: Marcell Balderrama Date of Service: 05/09/25 Procedure(s): ECG 12 lead Accession Number(s): [id number] cc: [facility] Test Date: 2025-05-09 Pat Name: ABY MADRIGAL Department: Room: - Gender: Female Wool Buyer: : 1965 Requested By: [id number] Order Number: [id number] Reading MD: GOMEZ JAY M.D. Measurements Intervals [place] Rate: 60 P: 50 ID: 186 QRS: 20 QRSD: 88 T: 104 QT: 420 QTc: 420 Interpretive Statements 1100 Sinus rhythm 4564 Twave abnormality, possible lateral ischemia 9150 abnormal ECG Compared to ECG 03/25/2025 22:21:42 ST (T wave) deviation no longer present Possible ischemia still present Electronically Signed On 05-09-2025 21:06:32 EDT by GOMEZ JAY M.D. Dictated By: GOMEZ JAY Signed By: 05/09/252105 DD/ 153 TD/TT: [employer]: NADIA silverman 1V Reviewed date:05/09/2025 05:41:53 PM Interpretation: Performing Lab: Notes/Report: Source Facility: [facility]-[address] [place] [address] [place] [address] XRay Report Signed Patient: ABY MADRIGAL MR#: [id number] : 1965 Acct:[id number] Age/Sex: 59 / F ADM Date: 05/09/25 Loc: ER Attending Dr: Ordering Physician: Marcell Balderrama Date of Service: 05/09/25 Procedure(s): XR chest 1V Accession Number(s): [id number] cc: Kendra Murillo M.D.; Marcell Balderrama [place] [id number] Patient Name: ABY MADRIGAL MRN: TBH:[id number] date: 1965 Sex: F Assigned Patient Location: ER Current Patient Location: ER Accession/Order Number: [id number] Exam Date: 05/09/2025 16:03 Report Date: 05/09/2025 16:04 At the request of: MARCELL BALDERRAMA MD Procedure: XR chest 1V Plain film [...] White M.D. 05/09/2025 4:04 PM Dictation Location: [place] [address] Electronically authenticated by: [id number] Y Date: 05/09/2025 16:04 Dictated By: Marcell White D.O. Signed By: 05/09/25 1606 DD/ 1604 TD/TT: [employer]: Troponin I High Sensitivity Reviewed date:05/09/2025 08:30:26 PM Interpretation: Performing Lab: Notes/Report: [facility] , Troponin I High Sensitivity 7.5 4.0-51.3 pg/mL CUT-OFF POINTS HAVE BEEN ESTABLISHED BASED ON THE FOURTH UNIVERSAL DEFINITION OF MYOCARDIAL INFARCTION. THE UPPER REFERENCE LIMIT (URL) OF TROPONIN, DEFINED THE 99TH PERCENTILE OF cTnI DISTRIBUTION IN A REFERENCE POPULATION, HAS BEEN CONFIRMED THE DECISION THRESHOLD FOR NC DIAGNOSIS. 99TH PERCENTILE = 51.4 PG/ML NOTE: HIGH-SENSITIVITY TROPONIN ASSAY IS NOT INTENDED TO BE USED IN ISOLATION BUT SHOULD BE INTERPRETED IN CONJUNCTION WITH OTHER DIAGNOSTIC AND CLINICAL INFORMATION. Performing Lab: see note - [facility] LB Troponin I High Sensitivity Reviewed date:05/09/2025 09:12:38 PM Interpretation: Performing Lab: Notes/Report: [facility] , Troponin I High Sensitivity 4.6 4.0-51.3 pg/mL CUT-OFF POINTS HAVE BEEN ESTABLISHED BASED ON THE FOURTH UNIVERSAL DEFINITION OF MYOCARDIAL INFARCTION. THE UPPER REFERENCE LIMIT (URL) OF TROPONIN, DEFINED THE 99TH PERCENTILE OF cTnI DISTRIBUTION IN A REFERENCE POPULATION, HAS BEEN CONFIRMED THE DECISION THRESHOLD FOR NC DIAGNOSIS. 99TH PERCENTILE = 51.4 PG/ML NOTE: HIGH-SENSITIVITY TROPONIN ASSAY IS NOT INTENDED TO BE USED IN ISOLATION BUT SHOULD BE INTERPRETED IN CONJUNCTION WITH OTHER DIAGNOSTIC AND CLINICAL INFORMATION. Performing Lab: see note - [facility] LB ECG 12 lead Reviewed date:05/10/2025 07:06:51 PM Interpretation: Performing Lab: Notes/Report: Source Facility: [place] [address] Electrocardiograph Report Signed Patient: ABY MADRIGAL MR#: [id number] : 1965 Acct:[id number] Age/Sex: 59 / F ADM Date: 05/09/25 Loc: MS [facility] Attending Dr: Kendra Murillo M.D. Ordering Physician: Marcell Balderrama Date of Service: 05/09/25 Procedure(s): ECG 12 lead Accession Number(s): [id number] cc: [facility] Test Date: 2025-05-09 Pat Name: ABY MADRIGAL Department: Room: [facility] Gender: Female Wool Buyer: : 1965 Requested By: 0919 Order Number: [id number] [place] MD: GOMEZ JAY M.D. Measurements Intervals [place] Rate: 60 P: 47 ID: 178 QRS: 15 QRSD: 86 T: 109 QT: 424 QTc: 424 Interpretive Statements 1100 Sinus rhythm 4564 Twave abnormality, possible lateral ischemia 5211 Minimal voltage criteria for LVH, may be normal variant 9150 abnormal ECG Compared to ECG 05/09/2025 15:39:44 No significant changes Electronically Signed On 05-10-2025 17:47:23 EDT by GOMEZ JAY M.D. Dictated By: GOMEZ JAY Signed By: 05/10/25 1747 05/10/25 1747 DD/ 1557 TD/TT: [employer]: BNP Reviewed date:05/10/2025 08:41:08 AM Interpretation: Performing Lab: Notes/Report: Comment From blood this am if possible [facility] , NT Pro B Type Natriuretic Pept 196.0 <=900.0 pg/mL Performing Lab: see note ML - [facility] LB CBC AUTO DIFF Reviewed date:05/10/2025 08:41:08 AM Interpretation: Performing Lab: Notes/Report: [facility] , White Blood Count 4.9 4.0-11.0 10 [...] 3/uL Performing Lab: see note ML - [facility] LB MAGNESIUM Reviewed date:05/10/2025 08:41:08 AM Interpretation: Performing Lab: Notes/Report: [facility] , Magnesium 2.1 1.8-2.4 mg/dL Performing Lab: see note - [facility] PROF 14(COMP METB) Reviewed date:05/10/2025 08:41:08 AM Interpretation: Performing Lab: Notes/Report: [facility] , Sodium 145 136-145 mmol/L Potassium 3.7 [...] Performing Lab: see note ML - [facility] LB Troponin I High Sensitivity Reviewed date:05/10/2025 08:41:09 AM Interpretation: Performing Lab: Notes/Report: [facility] , Troponin I High Sensitivity 10.0 4.0-51.3 pg/mL CUT-OFF POINTS HAVE BEEN ESTABLISHED BASED ON THE FOURTH UNIVERSAL DEFINITION OF MYOCARDIAL INFARCTION. THE UPPER REFERENCE LIMIT (URL) OF TROPONIN, DEFINED THE 99TH PERCENTILE OF cTnI DISTRIBUTION IN A REFERENCE POPULATION, HAS BEEN CONFIRMED THE DECISION THRESHOLD FOR NC DIAGNOSIS. 99TH PERCENTILE = 51.4 PG/ML NOTE: HIGH-SENSITIVITY TROPONIN ASSAY IS NOT INTENDED TO BE USED IN ISOLATION BUT SHOULD BE INTERPRETED IN CONJUNCTION WITH OTHER DIAGNOSTIC AND CLINICAL INFORMATION. Performing Lab: see note - [facility] Troponin I High Sensitivity Reviewed date:05/10/2025 07:06:51 PM Interpretation: Performing Lab: Notes/Report: [facility] , Troponin I High Sensitivity 10.2 4.0-51.3 pg/mL CUT-OFF POINTS HAVE BEEN ESTABLISHED BASED ON THE FOURTH UNIVERSAL DEFINITION OF MYOCARDIAL INFARCTION. THE UPPER REFERENCE LIMIT (URL) OF TROPONIN, DEFINED THE 99TH PERCENTILE OF cTnI DISTRIBUTION IN A REFERENCE POPULATION, HAS BEEN CONFIRMED THE DECISION THRESHOLD FOR NC DIAGNOSIS. 99TH PERCENTILE = 51.4 PG/ML NOTE: HIGH-SENSITIVITY TROPONIN ASSAY IS NOT INTENDED TO BE USED IN ISOLATION BUT SHOULD BE INTERPRETED IN CONJUNCTION WITH OTHER DIAGNOSTIC AND CLINICAL INFORMATION. Performing Lab: see note - [facility] CA echo doppler complete Reviewed date:05/12/2025 01:44:18 PM Interpretation: Performing Lab: Notes/Report: Source Facility: [place] [address] Cardiology Report Signed Patient: ABY MADRIGAL MR#: [id number] : 1965 Acct:[id number] Age/Sex: 59 / F ADM Date: 05/09/25 Loc: MS 217-[address]: Kendra Murillo M.D. Ordering Physician: Kendra Murillo M.D. Date of Service: 05/10/25 Procedure(s): CA echo doppler complete Accession Number(s): [id number] cc: Kendra Murillo M.D. Patient Name: ABY MADRIGAL MR#: [id number] : 1965 Exam Date: 05/10/2025 Ordering Doctor: DR KENDRA MURILLO . ECHOCARDIOGRAM REPORT PROCEDURE: CA ECHO DOPPLER [...] 28.09 ml, 28.09 ml Dictated by: Gomez Jay M.D. on 05/11/2025 at 08:10 Approved by: Gomez Jay M.D. on 05/11/2025 at 08:16 Dictated By: GOMEZ JAY Signed By: 05/11/25817 DD/ 5 TD/TT: [employer]: MR ross PAZ wo norman Reviewed date:05/14/2025 08:22:33 PM Interpretation: Performing Lab: Notes/Report: Source Facility: [place] [address] [place] [address] Magnetic Resonance Report Signed Patient: ABY MADRIGAL MR#: [id number] : 1965 Acct:[id number] Age/Sex: 59 / F ADM Date: 05/14/25 Loc: MRI Attending Dr: Kendra Murillo M.D. Ordering Physician: Kendra Murillo M.D. Date of Service: 05/14/25 Procedure(s): MR hawkins wo con Accession Number(s): [id number] cc: Kendra Murillo M.D. [place] [id number] Patient Name: ABY MADRIGAL MRN: [id number] date: 1965 Sex: F Assigned Patient Location: MRI Current Patient Location: MRI Accession/Order Number: [id number] Exam Date: 05/14/2025 16:44 Report Date: 05/14/2025 16:51 At the request of: KENDRA MURILLO MD Procedure: MR knee LT wo con [...] Parada M.D. 05/14/2025 4:51 PM Dictation Location: [place] [address] Electronically authenticated by: [id number] Y Date: 05/14/2025 16:51 Dictated By: Jarocho Parada M.D. Signed By: 05/14/25 1654 DD/ 50 TD/TT: [employer]: CBC AUTO DIFF Reviewed date:05/20/2025 03:18:13 PM Interpretation: Performing Lab: Notes/Report: [facility] , White Blood Count 6.7 4.0-11.0 10 [...] Performing Lab: see note ML - [facility] LB PROF 14(COMP METB) Reviewed date:05/20/2025 03:18:13 PM Interpretation: Performing Lab: Notes/Report: [facility] , Sodium 144 136-145 mmol/L Potassium 3.7 [...] Performing Lab: see note ML - [facility] LB Troponin I High Sensitivity Reviewed date:05/20/2025 03:18:13 PM Interpretation: Performing Lab: Notes/Report: [facility] , Troponin I High Sensitivity 5.6 4.0-51.3 pg/mL CUT-OFF POINTS HAVE BEEN ESTABLISHED BASED ON THE FOURTH UNIVERSAL DEFINITION OF MYOCARDIAL INFARCTION. THE UPPER REFERENCE LIMIT (URL) OF TROPONIN, DEFINED THE 99TH PERCENTILE OF cTnI DISTRIBUTION IN A REFERENCE POPULATION, HAS BEEN CONFIRMED THE DECISION THRESHOLD FOR NC DIAGNOSIS. 99TH PERCENTILE = 51.4 PG/ML NOTE: HIGH-SENSITIVITY TROPONIN ASSAY IS NOT INTENDED TO BE USED IN ISOLATION BUT SHOULD BE INTERPRETED IN CONJUNCTION WITH OTHER DIAGNOSTIC AND CLINICAL INFORMATION. Performing Lab: see note ML - [facility] LB ECG 12 lead Reviewed date:05/20/2025 03:18:13 PM Interpretation: Performing Lab: Notes/Report: Source Facility: [facility]-[address] [place] [address] [place] [address] Electrocardiograph Report Signed Patient: ABY MADRIGAL MR#: [id number] : 1965 Acct:[id number] Age/Sex: 59 / F ADM Date: 05/17/25 Loc: ER Attending Dr: Ordering Physician: Ayaka Beauchamp Date of Service: 05/17/25 Procedure(s): ECG 12 lead Accession Number(s): [id number] cc: [facility] Test Date: 2025-05-17 Pat Name: ABY MADRIGAL Department: Room: - Gender: Female Wool Buyer: : 1965 Requested By: 0939 Order Number: [id number] Reading MD: GOMEZ JAY M.D. Measurements Intervals [place] Rate: 61 P: 53 ID: 182 QRS: 30 QRSD: 92 T: 150 QT: 390 QTc: 393 Interpretive Statements 1100 Sinus rhythm 4068 Nonspecific Twave abnormality 9130 borderline ECG Compared to ECG 05/09/2025 15:57:14 No significant changes Electronically Signed On 05-19-2025 11:58:15 EDT by GOMEZ JAY M.D. Dictated By: GOMEZ JAY Signed By: 05/19/25 1158 DD/ 8774 TD/TT: [employer]: CBC AUTO DIFF Reviewed date:06/05/2025 09:07:10 PM Interpretation: Performing Lab: Notes/Report: [facility] , White Blood Count 6.7 4.0-11.0 10 [...] Performing Lab: see note ML - [facility] FREE T3 Reviewed date:06/05/2025 09:07:10 PM Interpretation: Performing Lab: Notes/Report: [facility] , Free T3 1.95 2.18-3.98 pg/mL Performing Lab: see note ML - [facility] GLYCOHEMOGLOBIN A1C Reviewed date:06/05/2025 09:07:10 PM Interpretation: Performing Lab: Notes/Report: [facility] , Glycohemoglobin A1C 5.9 4.5-6.2 % ADA RECOMMENDED LIMIT 4.0 - 6.0 ADA THERAPEUTIC TARGET < 7.0 ACTION SUGGESTED > 7.0 Estimated Average Glucose 123 Performing Lab: see note ML - [facility] LIPID PROFILE Reviewed date:06/05/2025 09:07:10 PM Interpretation: Performing Lab: Notes/Report: [facility] , Triglycerides 44 <=150 mg/dL Cholesterol 115 [...] RISK Performing Lab: see note ML - [facility] LB PROF 14(COMP METB) Reviewed date:06/05/2025 09:07:10 PM Interpretation: Performing Lab: Notes/Report: [facility] , Sodium 147 136-145 mmol/L Potassium 4.0 [...] Performing Lab: see note ML - [facility] LB T4 Reviewed date:06/05/2025 09:07:10 PM Interpretation: Performing Lab: Notes/Report: [facility] , T4 Thyroxine 7.20 4.80-13.90 ug/dL Performing Lab: see note ML - [facility] LB TSH Reviewed date:06/05/2025 09:07:10 PM Interpretation: Performing Lab: Notes/Report: [facility] , Thyroid Stimulating Hormone 2.200 0.358-3.740 uIU/mL Performing Lab: see note ML - [facility] LB NM gunnar perf SPECT rest str Reviewed date:06/05/2025 09:07:10 PM Interpretation: Performing Lab: Notes/Report: Source Facility: [facility]-[address] [place] [address] [place] [address] Nuclear Medicine Report Signed Patient: ABY MADRIGAL MR#: [id number] : 1965 Acct:[id number] Age/Sex: 59 / F ADM Date: 06/05/25 Loc: NM Attending Dr: GOMEZ JAY Ordering Physician: GOMEZ JAY Date of Service: 06/05/25 Procedure(s): NM gunnar perf SPECT rest str Accession Number(s): [id number] cc: Kendra Murillo M.D.; GOMEZ JAY Patient Name: ABY MADRIGAL MR#: [id number] : 1965 Exam Date: 06/05/2025 Ordering Doctor: DR GOMEZ JAY M.D. RADIOLOGY REPORT PROCEDURE: NM GUNNAR PERF [...] the study was pending per attending physician [facility]. For more [...] significant transient ischemic dilatation Dictated by: Brunilda Rahman M.D. on 06/05/2025 at 15:50 Approved by: Brunilda Rahman M.D. on 06/05/2025 at 15:53 Dictated By: Brunilda Rahman M.D. Signed By: 06/05/25 1553 DD/ 155 TD/TT: [employer]: GOPI Reviewed date:06/07/2025 06:53:30 PM Interpretation: Performing Lab: Notes/Report: [facility] , NT Pro B Type Natriuretic Pept 153.0 <=900.0 pg/mL Performing Lab: see note ML - [facility] LB CBC AUTO DIFF Reviewed date:06/06/2025 09:01:20 PM Interpretation: Performing Lab: Notes/Report: [facility] , White Blood Count 6.8 4.0-11.0 10 3/uL Red Blood Count 4.26 4.20-5.40 10 6/uL Hemoglobin 11.5 12.0-16.0 g/dL Hematocrit 35.7 36.0-48.0 % Mean Corpuscular Volume 83.8 81.0-99.0 fL Mean Corpuscular Hemoglobin 27.0 26.7-34.0 pg Mean Corpuscular HGB Conc 32.2 29.9-35.2 g/dL Red Cell Distribution Width 16.4 11.0-15.0 % Platelet Count 196 150-450 10 3/uL Mean Platelet Volume 9.7 9.5-13.5 fL Neutrophils Percent Auto 54.0 43.0-75.0 % Lymphocytes Percent Auto 35.8 20.5-60.0 % Monocytes Percent Auto 7.9 1.7-12.0 % Eosinophils Percent Auto 1.6 0.9-7.0 % Basophils Percent Auto 0.6 0.2-2.0 % Immature Granulocytes Pct Auto 0.1 0.0-0.5 % Neutrophils Absolute Auto 3.7 1.4-6.5 10 3/uL Lymphocytes Absolute Auto 2.4 1.2-3.8 10 3/uL Monocytes Absolute Auto 0.5 0.3-0.8 10 3/uL Eosinophils Absolute Auto 0.1 0.0-0.7 10 3/uL Basophils Absolute Auto 0.0 0.0-0.1 10 3/uL Immature Granulocytes Abs Auto 0.01 0.00-0.03 10 3/uL Performing Lab: see note ML - [facility] LB PROF CHEM 8 (BAS METB) Reviewed date:06/07/2025 06:53:30 PM Interpretation: Performing Lab: Notes/Report: [facility] , Sodium 144 136-145 mmol/L Potassium 4.4 3.5-5.1 mmol/L Chloride 108 98-107 mmol/L Carbon Dioxide 26.7 21.0-32.0 mmol/L Anion Gap 13.7 Glucose 104 74-106 mg/dL Blood Urea Nitrogen 20.0 7.0-18.0 mg/dL Creatinine 0.99 0.55-1.02 mg/dL Estimated GFR ( Candace >60 >=60 mL/min/1.73m 2 Estimated GFR (Non- Susi 57 >=60 mL/min/1.73m 2 BUN Creatinine Ratio 20.2 Calcium 9.2 8.5-10.1 mg/dL Performing Lab: see note ML - [facility] PTT Reviewed date:06/07/2025 06:53:30 PM Interpretation: Performing Lab: Notes/Report: [facility] , Partial Thromboplastin Time 28.1 22.3-36.2 sec Performing Lab: see note ML - [facility] Prothrombin Time INR Reviewed date:06/07/2025 06:53:30 PM Interpretation: Performing Lab: Notes/Report: [facility] , Prothrombin Time 10.0 9.0-11.6 sec INR 0.94 DESIRED INR: 2.0-3.0 CONDITIONS NOT LISTED BELOW 2.5-3.5 FOR PROSTHETIC HEART VALVE REPLACEMENT 2.5-3.5 RECURRENT THROMBOSIS Performing Lab: see note ML - [facility] Troponin I High Sensitivity Reviewed date:06/07/2025 06:53:30 PM Interpretation: Performing Lab: Notes/Report: [facility] , Troponin I High Sensitivity 6.7 4.0-51.3 pg/mL CUT-OFF POINTS HAVE BEEN ESTABLISHED BASED ON THE FOURTH UNIVERSAL DEFINITION OF MYOCARDIAL INFARCTION. THE UPPER REFERENCE LIMIT (URL) OF TROPONIN, DEFINED THE 99TH PERCENTILE OF cTnI DISTRIBUTION IN A REFERENCE POPULATION, HAS BEEN CONFIRMED THE DECISION THRESHOLD FOR NC DIAGNOSIS. 99TH PERCENTILE = 51.4 PG/ML NOTE: HIGH-SENSITIVITY TROPONIN ASSAY IS NOT INTENDED TO BE USED IN ISOLATION BUT SHOULD BE INTERPRETED IN CONJUNCTION WITH OTHER DIAGNOSTIC AND CLINICAL INFORMATION. Performing Lab: see note ML - [facility] ECG 12 lead Reviewed date:06/09/2025 03:43:46 PM Interpretation: Performing Lab: Notes/Report: Source Facility: [facility]-[address] [place] [address] [place] [address] Electrocardiograph Report Signed Patient: ABY MADRIGAL MR#: [id number] : 1965 Acct:[id number] Age/Sex: 59 / F ADM Date: 06/06/25 Loc: ER Attending Dr: Ordering Physician: Lorenzo Romeo Date of Service: 06/06/25 Procedure(s): ECG 12 lead Accession Number(s): [id number] cc: [facility] Test Date: 2025-06-06 Pat Name: AYB MADRIGAL Department: Room: - Gender: Female Wool Buyer: : 1965 Requested By: 1031 Order Number: [id number] Reading MD: BRUNILDA RAHMAN Measurements Intervals [place] Rate: 55 P: 62 ID: 166 QRS: 50 QRSD: 90 T: 75 QT: 398 QTc: 386 Interpretive Statements 1100 Sinus rhythm 4068 Nonspecific Twave abnormality 9130 borderline ECG Compared to ECG 05/17/2025 23:04:33 No significant changes Electronically Signed On 06-08-2025 9:54:45 EDT by BRUNILDA RAHMAN Dictated By: Brunilda Rahman M.D. Signed By: 06/08/25954 DD/ 00 TD/TT: [employer]: XR chest 1V Reviewed date:06/06/2025 09:01:20 PM Interpretation: Performing Lab: Notes/Report: Source Facility: [place] [address] [place] [address] XRay Report Signed Patient: ABY MADRIGAL MR#: [id number] : 1965 Acct:[id number] Age/Sex: 59 / F ADM Date: 06/06/25 Loc: ER Attending Dr: Ordering Physician: Lorenzo Romeo Date of Service: 06/06/25 Procedure(s): XR chest 1V Accession Number(s): [id number] cc: Lorenzo Romeo; Kendra Murillo M.D. [place] [address] Patient Name: ABY MADRIGAL MRN: [id number] date: 1965 Sex: F Assigned Patient Location: ED.MAIN Current Patient Location: ED.MAIN Accession/Order Number: [id number] Exam Date: 06/06/2025 20:39 Report Date: 06/06/2025 20:40 At the request of: LORENZO ROMEO MD Procedure: XR chest 1V XR chest 1V 06/06/2025 8:27 PM SIGNS AND SYMPTOMS: Chest pain PROTOCOL: Frontal radiograph COMPARISON: 05/09/2025 FINDINGS: The trachea is midline. Atherosclerotic changes are present in the aortic arch. The heart and mediastinal structures are within normal limits. The lung parenchyma is clear. The bony thorax is intact. XR/XR chest 1V IMPRESSION: No acute cardiopulmonary pathology. Impression dictated by: Jarocho Parada M.D. 06/06/2025 8:40 PM Dictation Location: [place] [address] Electronically authenticated by: [id number] Y Date: 06/06/2025 20:40 Dictated By: Jarocho Parada M.D. Signed By: 06/06/252041 DD/ 39 TD/TT: [employer]: JULIANN Reviewed date:07/23/2025 02:31:10 PM Interpretation: Performing Lab: Notes/Report: Source Facility: [place] [address] Cardiac Rehab Report Signed Patient: ABY MADRIGAL MR#: [id number] : 1965 Acct:[id number] Age/Sex: 60 / F ADM Date: 07/19/25 Loc: CR Attending Dr: GOMEZ JAY Ordering Physician: GOMEZ JAY Date of Service: 07/03/25 Procedure(s): JULIANN Accession Number(s): [id number] cc: [facility] Test Date: 2025-07-03 Pat Name: ABY MADRIGAL Department: Room: - Gender: Female Wool Buyer: : 1965 Requested By: GOMEZ JAY M.D. Order Number: [id number] [place] MD: Nikki Licea Interpretive Statements Session Date: Electronically Signed On 07-20-2025 13:27:51 EDT by Nikki Licea Dictated By: Nikki Licea M.D. Signed By: 07/20/25 1328 07/20/25 1328 DD/ 1429 TD/TT: [employer]: CBC AUTO DIFF Reviewed date:07/08/2025 01:56:17 PM Interpretation: Performing Lab: Notes/Report: [facility] , White Blood Count 5.6 4.0-11.0 10 3/uL Red Blood Count 4.48 4.20-5.40 10 6/uL Hemoglobin 12.3 12.0-16.0 g/dL Hematocrit 38.1 36.0-48.0 % Mean Corpuscular Volume 85.0 81.0-99.0 fL Mean Corpuscular Hemoglobin 27.5 26.7-34.0 pg Mean Corpuscular HGB Conc 32.3 29.9-35.2 g/dL Red Cell Distribution Width 15.7 11.0-15.0 % Platelet Count 199 150-450 10 3/uL Mean Platelet Volume 10.1 9.5-13.5 fL Neutrophils Percent Auto 54.2 43.0-75.0 % Lymphocytes Percent Auto 32.1 20.5-60.0 % Monocytes Percent Auto 9.6 1.7-12.0 % Eosinophils Percent Auto 3.0 0.9-7.0 % Basophils Percent Auto 0.7 0.2-2.0 % Immature Granulocytes Pct Auto 0.4 0.0-0.5 % Neutrophils Absolute Auto 3.1 1.4-6.5 10 3/uL Lymphocytes Absolute Auto 1.8 1.2-3.8 10 3/uL Monocytes Absolute Auto 0.5 0.3-0.8 10 3/uL Eosinophils Absolute Auto 0.2 0.0-0.7 10 3/uL Basophils Absolute Auto 0.0 0.0-0.1 10 3/uL Immature Granulocytes Abs Auto 0.02 0.00-0.03 10 3/uL Performing Lab: see note ML - [facility] LB PROF CHEM 8 (BAS METB) Reviewed date:07/08/2025 01:56:17 PM Interpretation: Performing Lab: Notes/Report: [facility] , Sodium 143 136-145 mmol/L Potassium 4.5 3.5-5.1 mmol/L Chloride 106 98-107 mmol/L Carbon Dioxide 29.5 21.0-32.0 mmol/L Anion Gap 12.0 Glucose 111 74-106 mg/dL Blood Urea Nitrogen 21.0 7.0-18.0 mg/dL Creatinine 1.22 0.55-1.02 mg/dL Estimated GFR ( Candace 54 >=60 mL/min/1.73m 2 Estimated GFR (Non- Susi 45 >=60 mL/min/1.73m 2 BUN Creatinine Ratio 17.2 Calcium 9.2 8.5-10.1 mg/dL Performing Lab: see note ML - [facility] LB Troponin I High Sensitivity Reviewed date:07/08/2025 01:56:17 PM Interpretation: Performing Lab: Notes/Report: [facility] , Troponin I High Sensitivity 7.1 4.0-51.3 pg/mL CUT-OFF POINTS HAVE BEEN ESTABLISHED BASED ON THE FOURTH UNIVERSAL DEFINITION OF MYOCARDIAL INFARCTION. THE UPPER REFERENCE LIMIT (URL) OF TROPONIN, DEFINED THE 99TH PERCENTILE OF cTnI DISTRIBUTION IN A REFERENCE POPULATION, HAS BEEN CONFIRMED THE DECISION THRESHOLD FOR NC DIAGNOSIS. 99TH PERCENTILE = 51.4 PG/ML NOTE: HIGH-SENSITIVITY TROPONIN ASSAY IS NOT INTENDED TO BE USED IN ISOLATION BUT SHOULD BE INTERPRETED IN CONJUNCTION WITH OTHER DIAGNOSTIC AND CLINICAL INFORMATION. Performing Lab: see note ML - [facility] LB ECG 12 lead Reviewed date:07/09/2025 07:22:20 PM Interpretation: Performing Lab: Notes/Report: Source Facility: [facility]-[address] [place] [address] [place] [address] Electrocardiograph Report Signed Patient: ABY MADRIGAL MR#: [id number] : 1965 Acct:[id number] Age/Sex: 60 / F ADM Date: 07/08/25 Loc: ER Attending Dr: Ordering Physician: Jose Betancur M.D. Date of Service: 07/08/25 Procedure(s): ECG 12 lead Accession Number(s): [id number] cc: [facility] Test Date: 2025-07-08 Pat Name: ABY MADRIGAL Department: Room: - Gender: Female Wool Buyer: : 1965 Requested By: KENDRA MURILLO Order Number: [id number] Reading MD: GOMEZ JAY M.D. Measurements Intervals [place] Rate: 64 P: 50 ID: 166 QRS: 18 QRSD: 86 T: 77 QT: 376 QTc: 385 Interpretive Statements 1100 Sinus rhythm 4068 Nonspecific Twave abnormality 9130 borderline ECG Compared to ECG 06/06/2025 20:01:29 No significant changes Electronically Signed On 07-09-2025 17:41:33 EDT by GOMEZ JAY M.D. Dictated By: GOMEZ JAY Signed By: 07/09/25 1743 DD/ 1003 TD/TT: [employer]: XR chest 1V Reviewed date:07/08/2025 01:56:17 PM Interpretation: Performing Lab: Notes/Report: Source Facility: [place] [address] XRay Report Signed Patient: ABY MADRIGAL MR#: [id number] : 1965 Acct:[id number] Age/Sex: 60 / F ADM Date: 07/08/25 Loc: ER Attending Dr: Ordering Physician: Jose Betancur M.D. Date of Service: 07/08/25 Procedure(s): XR chest 1V Accession Number(s): [id number] cc: Kendra Murillo M.D.; Jose Betancur M.D. [place] [address] Patient Name: ABY MADRIGAL MRN: [id number] date: 1965 Sex: F Assigned Patient Location: ER Current Patient Location: ER Accession/Order Number: [id number] Exam Date: 07/08/2025 10:53 Report Date: 07/08/2025 10:58 At the request of: JOSE BETANCUR MD Procedure: XR chest 1V Single view chest: CLINICAL HISTORY: Chest discomfort COMPARISON: Chest 06/06/2025 FINDINGS: The heart is normal in size. The lungs are clear. The pulmonary vasculature is normal. Mediastinum and hilar regions are unremarkable. No pleural effusions are seen. Visualized bones are intact. XR/XR chest 1V IMPRESSION: NO ACUTE PROCESS. Impression dictated by: Malik Gomez Jr., D.O. 07/08/2025 10:58 AM Dictation Location: [employer] Electronically authenticated by: [id number] Y Date: 07/08/2025 10:58 Dictated By: Malik Gomez M.D. Signed By: 07/08/25 1101 DD/ 1058 TD/TT: [employer]: Troponin I High Sensitivity Reviewed date:07/08/2025 01:56:17 PM Interpretation: Performing Lab: Notes/Report: [facility] , Troponin I High Sensitivity 5.3 4.0-51.3 pg/mL CUT-OFF POINTS HAVE BEEN ESTABLISHED BASED ON THE FOURTH UNIVERSAL DEFINITION OF MYOCARDIAL INFARCTION. THE UPPER REFERENCE LIMIT (URL) OF TROPONIN, DEFINED THE 99TH PERCENTILE OF cTnI DISTRIBUTION IN A REFERENCE POPULATION, HAS BEEN CONFIRMED THE DECISION THRESHOLD FOR NC DIAGNOSIS. 99TH PERCENTILE = 51.4 PG/ML NOTE: HIGH-SENSITIVITY TROPONIN ASSAY IS NOT INTENDED TO BE USED IN ISOLATION BUT SHOULD BE INTERPRETED IN CONJUNCTION WITH OTHER DIAGNOSTIC AND CLINICAL INFORMATION. Performing Lab: see note ML - [facility] LB ITP Reviewed date:07/23/2025 02:31:10 PM Interpretation: Performing Lab: Notes/Report: Source Facility: [facility]-[address] [place] [address] [place] [address] Cardiac Rehab Report Signed Patient: ABY MADRIGAL MR#: [id number] : 1965 Acct:[id number] Age/Sex: 60 / F ADM Date: 07/19/25 Loc: CR Attending Dr: GOMEZ JAY Ordering Physician: GOMEZ JAY Date of Service: 07/11/25 Procedure(s): ITP Accession Number(s): [id number] cc: [facility] Test Date: 2025-07-11 Pat Name: ABY MADRIGAL Department: Room: - Gender: Female Wool Buyer: : 1965 Requested By: GOMEZ JAY M.D. Order Number: [id number] [place] MD: Nikki Licea Interpretive Statements Session Date: Electronically Signed On 07-20-2025 13:28:13 EDT by Nikki Licea Dictated By: Nikki Licea M.D. Signed By: 07/20/258 07/20/251327 DD/ 4 TD/TT: [employer]: JULIANN Reviewed date:08/08/2025 06:06:50 PM Interpretation: Performing Lab: Notes/Report: Source Facility: [place] [address] [place] [address] Cardiac Rehab Report Signed Patient: ABY MADRIGAL MR#: [id number] : 1965 Acct:[id number] Age/Sex: 60 / F ADM Date: 08/07/25 Loc: CR Attending Dr: GOMEZ JAY Ordering Physician: GOMEZ JAY Date of Service: 07/26/25 Procedure(s): ITP Accession Number(s): [id number] cc: [facility] Test Date: 2025-07-26 Pat Name: ABY MADRIGAL Department: Room: - Gender: Female Wool Buyer: : 1965 Requested By: GOMEZ JAY M.D. Order Number: [id number] [place] MD: GOMEZ JAY M.D. Interpretive Statements Patient may continue cardiac rehab as outlined in the treatment plan. Electronically Signed On 08-08-2025 17:59:25 EDT by GOMEZ JAY M.D. Dictated By: GOMEZ JAY Signed By: 08/08/25175808/08/251758 DD/ 5 TD/TT: [employer]: JULIANN Reviewed date:08/27/2025 06:46:36 PM Interpretation: Performing Lab: Notes/Report: Source Facility: [facility]-[address] [place] [address] [address] Cardiac Rehab Report Signed Patient: ABY MADRIGAL MR#: [id number] : 1965 Acct:[id number] Age/Sex: 60 / F ADM Date: 08/23/25 Loc: CR Attending Dr: GOMEZ JAY Ordering Physician: GOMEZ JAY Date of Service: 08/27/25 Procedure(s): ITP Accession Number(s): [id number] cc: [facility] Test Date: 2025-08-27 Pat Name: ABY MADRIGAL Department: Room: - Gender: Female Wool Buyer: : 1965 Requested By: GOMEZ JAY M.D. Order Number: [id number] [place] MD: GOMEZ JAY M.D. Interpretive Statements Patient may continue cardiac rehab as outlined in the treatment plan. Electronically Signed On 08-27-2025 18:32:15 EDT by GOMEZ JAY M.D. Dictated By: GOMEZ JAY Signed By: 08/27/25183108/27/251831 DD/ 5 TD/TT: [employer]: Reason For Referral Diagnosis 1 Facial cellulitis (L 03.211) Referral Organization [facility] Referring Provider First Name Amadou Referring Provider Last Name Lidia Referring Provider [facility] Referred Provider Avelina Guevara Referred Provider Specialty Otolaryngolo gy Referral Priority Routine Diagnosis 1 Thrombus (I82.90) Referral Organization [facility] Referring Provider First Name Amadou Referring Provider Last Name Lidia Referring Provider [facility] Referred Provider Specialty Ear, nose an d throat surgeon Referral Priority Routine 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 CT report scanned in chart from 03/26/25, Lenny Valenzuela 04/02/2025 10:50:17 AM >yes, per JW Referral Priority Routine Diagnosis 1 Bakers cyst (M71.20) Referral Organization [facility] Referring Provider First Name Amadou Referring Provider Last Name Lidia Referring Provider [facility] padmini Referred Provider Umm Mejía Referred Provider Specialty Orthopedic S urgery Referral Priority Routine Reason on back Diagnosis 1 Nevus (D22.9) Referral Organization [facility] Referring Provider First Name Amadou Referring Provider Last Name Lidia Referring Provider [facility] padmini Referred Provider Umm Martínez Referred Provider Specialty General Surg dez Referral Priority Routine Medications Medication SIG (Take, Route, Frequency, Duration) Notes Start Date End Date Status Singulair 10 MG 1 tablet Orally Once a day; Duration: 30 days 07/18/2025 Active SEROquel 25 MG 1 tablet at bedtime Orally Once a day; Duration: 90 days 04/20/2023 Active Test Strips - Use as directed once daily; Duration: 90 days Diagnosis: E11.9 09/30/2023 Active Rosuvastatin Calcium 40 MG 1 tablet Orally Once a day; Duration: 90 days Active CPAP Supplies -- Mask and Tubing; Duration: 365 days 08/15/2024 Active Glucometer - Use as directed once daily; Duration: 365 days Diagnosis: E11.9 09/30/2023 Active Clopidogrel Bisulfate 75 MG 1 tablet Orally Once a day; Duration: 90 days Active CPAP - auto cpap 5-15; Duration: 365 days Active Autopap (A-PAP) - - Apply mask to face using face mask daily auto cpap 5-15; Duration: 365 days 04/21/2023 Active Carvedilol 25 MG 1 tablet with food Orally Twice a day; Duration: 90 days Active Protonix 40 MG 1 tablet Orally bid; Duration: 90 days 09/20/2023 Active Aspirin 81 MG 1 tablet Orally Once a day Active LORazepam 1 MG 1 tablet Orally tid; Duration: 30 days 05/30/2025 Active Magnesium Oxide 400 MG 1 tablet with mingo d Orally Once a day; Duration: 90 days 03/30/2025 Active Isosorbide Mononitrate ER 30 MG 1 tablet Orally Once a day; Duration: 90 days Active Lancets - Use as directed once daily; Duration: 90 days Diagnosis: E11.9 09/30/2023 Active Invokana 100 MG 1 tablet before the first meal of the day Orally Once a day; Duration: 90 days Active Immunizations Vaccine Route Administration Date Status Comme nts Flu, Flucelvax (11102) 2 yrs +, single-dose syringe (9185-4675) Unknown 10/25/2020 Administered Flu, Flucelvax (11767) 2 yrs +, single-dose syringe (2234-7126) Unknown 11/07/2021 Administered SARS-COV-2 (COVID 19 Pfizer 30mcg/0.3mL) Unknown 03/11/2021 Administered SARS-COV-2 (COVID 19 Pfizer 30mcg/0.3mL) Unknown [...] Problem Status W/U Status Risk Notes Problem Type II diabetes mellitus without complication (043324521) Type 2 diabetes mellitus without complications (E11.9) Active confirmed Problem Hypomagnesemia (051829972) Hypomagnesemia (E83.42) Active confirmed Problem Solitary pulmonary nodule (961770730) Solitary pulmonary nodule (R91.1) Active confirmed Problem Hypertension (62874442) Hypertension (I10) Active confirmed Problem Gastroesophageal reflux disease (763732610) GERD (gastroesophageal reflux disease) (K21.9) Active confirmed Problem Hypertension (22712576) HTN (hypertension) (I10) Active confirmed Problem Anxiety (15643633) Anxiety (F41.9) Active confi rmed Problem Coronary artery disease (38842907) Coronary artery disease (I25.10) Active confirmed Problem Left ventricular hypertrophy (94708155) Left ventricular hypertrophy (I51.7) Active confirmed Problem Carotid artery stenosis (12822007) Carotid artery stenosis (I65.29) Active confirmed Problem Sleep apnea (66917359) Sleep apnea (G47.30) Active confirmed Problem Obstructive sleep apnea (68345893) Obstructive sleep apnea (G47.33) Active confirmed Problem Insomnia (194046139) Insomnia (G47.00) Active confirmed Problem Transient ischemic attack (477136606) TIA (transient ischemic attack) (G45.9) Active confirmed Problem Migraine (71114619) Migraine (G43.909) Active confirmed Problem Generalized anxiety disorder (27754980) ALFONSO (generalized anxiety disorder) (F41.1) Active confirmed Problem Kidney stone (28051393) Kidney stones (N20.0) Active confirmed Problem Pulmonary nodule (260619238) Pulmonary nodule (R91.1) Active confirmed Problem Murmur (345683164) Murmur (R01.1) Active confir med Problem Diarrhea (96906800) Diarrhea (R19.7) Active con firmed Problem Edema (751528457) Edema leg (R60.0) Active conf irmed Problem Solitary nodule of lung (626496873) Lung nodule (R91.1) Active confirmed Problem Allergic conjunctivitis (750131429) Allergic conjunctivitis (H10.10) Active confirmed Problem Acquired hypothyroidism (896746956) Acquired hypothyroidism (E03.9) Active confirmed Problem Seasonal allergic rhinitis (890337010) Seasonal allergic rhinitis (J30.2) Active confirmed Problem Panic disorder (826189617) Panic disorder (F41.0) Active confirmed Problem Hemorrhoids (83583730) Hemorrhoids (K64.9) Active confirmed Problem Thrush (88255687) Thrush (B37.0) Active confirm ed Problem Inflamed seborrheic keratosis (295003667) Seborrheic keratoses, inflamed (L82.0) Active confirmed Problem Acute non-ST segment elevation myocardial infarction (163771485) NSTEMI (non-ST elevated myocardial infarction) (I21.4) Active confirmed Problem Nevus (6490790892) Nevus (D22.9) Active confirm ed Problem High blood pressure (59717556) High blood pressure (I10) Active confirmed Problem Cellulitis and abscess of face (885773908) Facial cellulitis (L03.211) Active confirmed Problem Skin sensation disturbance (72561374) Bilateral leg paresthesia (R20.2) Active confirmed Problem Ex-tobacco user (finding) (132061880) History of tobacco abuse (Z87.891) Active confirmed Problem Derangement of knee (70674986) Internal derangement of knee, left (M23.92) Active confirmed Problem Recurrent major depression (47169502) Depression, major, recurrent (F33.9) Active confirmed Problem Mass of left adrenal gland (58523907706758991) Left adrenal mass (E27.9) Active confirmed Problem Paresthesia of upper limb (44856531) Paresthesia of upper limb (R20.2) Active confirmed Problem Hypertensive urgency (157564727) Hypertensive urgency (I16.0) Active confirmed Problem Hypertensive emergency (196205171789644) Hypertensive emergency (I16.1) Active confirmed Problem Derangement of knee (38168053) Knee internal derangement, unspecified laterality (M23.90) Active confirmed Problem MRI Scan Abnormal (725605132) Abnormal MRI (R93.89) Active confirmed Problem Disease caused by Severe acute respiratory syndrome coronavirus 2 (disorder) (840245717) COVID-19 virus infection (U07.1) Active confirmed Vital Signs Blood pressure diastolic 62 mm Hg 07/18/2025 Height 63 in 07/18/2025 Blood pressure systolic 102 mm Hg 07/18/2025 Weight 198.4 lbs 07/18/2025 BMI 35.14 kg/m2 07/18/2025 Encounters Encounter Location Date Provider Diagnosis [facility] [address] [place] [address] 07/25/2025 Amadou Murillo [facility] [address] [place] [address] 08/15/2025 Amadou Hoy Hypertension I10 [facility] [address] [facility] [place] [address] 08/22/2025 Amadou Hoy Breast cancer screening Z12.31 [facility] [address] [facility] [place] [address] 05/29/2025 Amadou Hoy Hypomagnesemia E83.4 2 [facility] [address] [facility] [place] [address] 05/30/2025 Amadou Hoy Insomnia G47.00 [facility] [address] [facility] [place] [address] 06/05/2025 Amadou Hoy Abnormal thyroid blo od test R79.89 [facility] [address] [facility] [place] [address] 06/06/2025 Amadou Hoy [facility] [address] [facility] [place] [address] 06/26/2025 Amadou Hoy Hypertension I10 [facility] [address] [facility] [place] [address] 07/08/2025 Amadou Hoy [facility] [address] [facility] [place] [address] 04/19/2025 Amadou Hoy Hypertension I10 ; Diabetes mellitus E11.9 ; Hypokalemia E87.6 and Shortness of breath R06.02 [facility] [address] [facility] [place] [address] 04/24/2025 Amadou Hoy [facility] [address] [facility] [place] [address] 05/10/2025 Amadou Hoy [facility] [address] [facility] [place] [address] 05/11/2025 Amadou Hoy [facility] [address] [facility] [place] [address] 05/14/2025 Amadou Hoy Bakers cyst M71.20 a nd Abnormal MRI R93.89 [facility] [address] [facility] [place] [address] 05/20/2025 Amadou Hoy [facility] [address] [facility] [place] [address] 03/26/2025 Amadou Hoy Hypomagnesemia E83.4 2 and Hypertensive urgency I16.0 [facility] [address] [facility] [place] [address] 03/29/2025 Amadou Hoy Insomnia G47.00 [facility] [address] [facility] [place] [address] 03/30/2025 Amadou Hoy [facility] [address] [facility] [place] [address] 03/30/2025 Amadou Hoy Thrombus I82.90 [facility] [address] [facility] [place] [address] 04/02/2025 Amadou Hoy Low potassium syndro me E87.6 [facility] [address] [facility] [place] [address] 04/09/2025 Amadou Hoy Facial cellulitis L03.211 and Hypomagnesemia E83.42 [facility] [address] [facility] [place] [address] 11/26/2024 Amadou Hoy [facility] [address] [facility] [place] [address] 12/25/2024 Amadou Hoy Insomnia G47.00 [facility] [address] [facility] [place] [address] 01/30/2025 Amadou Hoy Insomnia G47.00 [facility] [address] [facility] [place] [address] 02/08/2025 Amadou Hoy [facility] [address] [facility] [place] [address] 03/23/2025 Amadou Hoy Facial cellulitis L03.211 [facility] [address] [facility] [place] [address] 03/26/2025 Amadou Hoy Facial cellulitis L03.211 [facility] [address] [facility] [place] [address] 09/29/2024 Amadou Hoy [facility] [address] [place] [address] 10/17/2024 Amadou Hoy Insomnia G47.00 [facility] [address] [place] [address] 10/27/2024 Amadou Hoy Hypertension I10 and Well adult Z00.00 [facility] [address] [place] [address] 11/08/2024 Amadou Hoy [facility] [address] [place] [address] 11/13/2024 Amadou Hoy [facility] [address] [place] [address] 11/16/2024 Amadou Hoy Insomnia G47.00 [facility] [address] [place] [address] 09/18/2024 Kaelyn Francine Insomnia G47.00 [facility] [address] [place] [address] 03/30/2025 Amadou Hoy Hypomagnesemia E83.4 2 ; Thrush B37.0 and Diarrhea R19.7 [facility] [address] [place] [address] 04/09/2025 Amadou Hoy Hypertension I10 ; Diabetes mellitus E11.9 ; Diarrhea R19.7 and Knee pain M25.569 [facility] [address] [place] [address] 04/25/2025 Amadou Hoy Knee internal derangement, unspecified laterality M23.90 and Internal derangement of knee, left M23.92 [facility] [address] [place] [address] 05/11/2025 Amadou Hoy Hypertension I10 [facility] [address] [place] [address] 07/18/2025 Amadou Hoy Nevus D22.9 and Seasonal allergic rhinitis J30.2 [facility] [address] [place] [address] 09/27/2024 Amadou Hoy Hypertension I10 [facility] [address] [facility] [place] [address] 11/20/2024 Amadou Hoy Hypertension I10 and Left ventricular hypertrophy I51.7 [facility] [address] [facility] [place] [address] 03/20/2025 Amadou Hoy Facial cellulitis L03.211 [facility] [address] [facility] [place] [address] 03/15/2025 Amaodu Hoy Facial cellulitis L03.211 [facility] [address] [place] [address] 04/03/2025 Christopher Vishnu Nasal congestion R09.81 ; Other specified disorders of nose and nasal sinuses J34.89 ; SURESH (obstructive sleep apnea) G47.33 and Cellulitis L03.90 Assessments Encounter Date Diagnosis (ICD Code) Assessment Notes Treatment Notes Treatment Clinical Notes Section Notes 09/27/2024 Hypertension (ICD-10 - I10) 11/20/2024 Hypertension (ICD-10 - I10) 11/20/2024 Left ventricular hypertrophy (ICD-10 - I51.7) 03/15/2025 Facial cellulitis (ICD-10 - L03.211) 03/20/2025 Facial cellulitis (ICD-10 - L03.211) if not better - need ct facial bones 03/30/2025 Hypomagnesemia (ICD-10 - E83.42) 03/30/2025 Thrush (ICD-10 - B37.0) 04/09/2025 Hypertension (ICD-10 - I10) 04/09/2025 Diabetes mellitus (ICD-10 - E11.9) 04/25/2025 Knee internal derangement, unspecified laterality (ICD-10 - M23.90) 04/25/2025 Internal derangement of knee, left (ICD-10 - M23.92) 05/11/2025 Hypertension (ICD-10 - I10) 07/18/2025 Nevus (ICD-10 - D22.9) 07/18/2025 Seasonal allergic rhinitis (ICD-10 - J30.2) 04/03/2025 Nasal congestion (ICD-10 - R09.81) 04/03/2025 Other specified disorders of nose and nasal sinuses (ICD-10 - J34.89) 11/16/2024 Insomnia (ICD-10 - G47.00) 12/25/2024 Insomnia (ICD-10 - G47.00) 01/30/2025 Insomnia (ICD-10 - G47.00) 03/23/2025 Facial cellulitis (ICD-10 - L03.211) 03/26/2025 Facial cellulitis (ICD-10 - L03.211) 03/26/2025 Hypomagnesemia (ICD-10 - E83.42) 03/26/2025 Hypertensive urgency (ICD-10 - I16.0) 03/29/2025 Insomnia (ICD-10 - G47.00) 03/30/2025 Thrombus (ICD-10 - I82.90) 04/02/2025 Low potassium syndrome (ICD-10 - E87.6) 04/09/2025 Facial cellulitis (ICD-10 - L03.211) 09/18/2024 Insomnia (ICD-10 - G47.00) 10/17/2024 Insomnia (ICD-10 - G47.00) 10/27/2024 Hypertension (ICD-10 - I10) 04/19/2025 Hypertension (ICD-10 - I10) 04/19/2025 Diabetes mellitus (ICD-10 - E11.9) 05/14/2025 Bakers cyst (ICD-10 - M71.20) 05/14/2025 Abnormal MRI (ICD-10 - R93.89) 05/29/2025 Hypomagnesemia (ICD-10 - E83.42) 05/30/2025 Insomnia (ICD-10 - G47.00) 06/05/2025 Abnormal thyroid blood test (ICD-10 - R79.89) 06/26/2025 Hypertension (ICD-10 - I10) 08/15/2025 Hypertension (ICD-10 - I10) 08/22/2025 Breast cancer screening (ICD-10 - Z12.31) 04/19/2025 Hypokalemia (ICD-10 - E87.6) 10/27/2024 Well adult (ICD-10 - Z00.00) 04/09/2025 Hypomagnesemia (ICD-10 - E83.42) 04/03/2025 SURESH (obstructive sleep apnea) (ICD-10 - G47.33) 04/09/2025 Diarrhea (ICD-10 - R19.7) 03/30/2025 Diarrhea (ICD-10 - R19.7) 04/09/2025 Knee pain (ICD-10 - M25.569) 04/03/2025 Cellulitis (ICD-10 - L03.90) 04/19/2025 Shortness of breath (ICD-10 - R06.02) 04/03/2025 Other I discussed my impression and [...] Contrast 03/23/2025 CBC W/AUTO DIFF 04/19/2025 PFT (95711, 56801, 22745) 06/27/2024 Covid-19 PCR (CVD[facility]) 08/13/2023 GLYCOHEMOGLOBIN A1C 04/19/2025 MRI KNEE LT WO CON 04/25/[address] SKULL BASE MID THIGH 04/28/2024 THYROID PANEL (T4/TSH/FREE T3) 3 THYROID PANEL (T4/TSH/FREE T3) 5 THYROID PANEL (T4/TSH/FREE T3) 5 MM screening mammo BI 08/22/2025 Lipid Panel 04/19/2025 Insurance Providers Payer Name Payer Address Payer Phone Subscriber Number Group Number Insured Name Patient Relationship to Insured Coverage Start Date Coverage End Date [employer] [place] [employer] [address] [address] [place] [id number] [id number] 1 [place] spence Aby Self - patient is the insured 3 [...] reflux Heart attack Surgical History Surgery Date(Month/Year) Angioplasty with stent placement stent kidney stone appendectomy cholecystectomy Hysterectomy 1998 Tubal Ligation 1988 Coronary angiography 06/30/24 Cath with stenting 06/07/2025 Hospitalization History Reason Date(Month/Year) Cath and stent placement Hypertension-TBH 03/2024 chest pain 05/15
--- OUTSIDE RECORDS SUMMARY | 2025-09-06 13:53 | XMS_ITS | Clinical Summary ---
Author Organization [employer] Address [id number] [address] [place] [address] Care Team Providers Care Manager Local Name Role Phone Carlito Murillo MD Primary Care Provider [phone] Allergies Active Allergy Reactions Criticality Noted Date [...] reflux disease) 7 BV (bacterial vaginosis) 10/18/2017 Family History Medical History Relation Name Comments [...] Health Maintenance Due Date Last Done Comments Statin Use: Cardiovascular 1965 Depression Screening 1976 DTaP,Tdap and Td Vaccines (1 - Tdap) 1983 Zoster (Shingles) Vaccine (1 of 2) 2014 COVID-19 Vaccine (3 - 2024-2 6 season) 2025 04/14/2021, 03/11/2021 Influenza Vaccine 07/23/2025 11/07/2021, , 10/30/2019, Additional history exists Adult BMI Follow Up Plan 06/01/2026 06/01/2025 Adult BMI Screening 06/01/2026 06/01/2025 Tobacco Screening 06/01/2026 06/01/2025 Medical Devices Not on file Insurance [address] [place] [address] [facility] Care Teams Manager Local Relationship Specialty Start Date End Date Carlito Murillo MD PCP - General Family Medicine 06/06/19
--- OUTSIDE RECORDS SUMMARY | 2025-09-06 13:54 | XMS_ITS | Encounter Summary ---
Author Organization [employer] [facility] Address [facility] [id number] [address] [place] [address] Care Team Providers Care Accounting Clerk Name Role Phone Carlito Murillo MD Primary Care Provider + Reason for Referral * Diagnostic Imaging (Routine) - Closed Specialty Diagnoses / Procedures Referred By Contac t Referred To Contact Radiology Diagnoses Pain Procedures CT angiogram chest [facility] [address] [place] [phone] Phone: tel: fax: Referral ID Status Reason Start Date Expiration Date Visits Re quested Visits Authorized [id number] Closed 07/20/2024 07/20/2025 1 1 * Diagnostic Imaging (Routine) - Closed Specialty Diagnoses / Procedures Referred By Contac t Referred To Contact Radiology Diagnoses Pain Procedures NON [facility] PET CT WHOLE BODY [facility] [address] [place] [phone] Phone: tel: fax: Referral ID Status Reason Start Date Expiration Date Visits Re quested Visits Authorized [id number] Closed 07/20/2024 07/20/2025 1 1 Encounter Details Date Type Department Care Team (Late st Contact Info) Description 07/20/2024 Orders Only [facility] [address] [place] [phone] Transcribe, Orders Support User Pain (Primary [...] pain documented in this encounter Care Teams Accounting Clerk Relationship Specialty Start Date End Date Carlito Murillo MD PCP - General Family Medicine 06/06/19 documented as of this encounter
--- OUTSIDE RECORDS SUMMARY | 2025-09-06 13:54 | XMS_ITS | Encounter Summary ---
Author Organization [facility] tem Address [id number] [address] [place] [address] Care Team Providers Care Pediatric Dietician Name Role Phone Carlito Murillo MD Primary Care Provider [phone] Reason for Referral * Diagnostic Imaging (Routine) - Pending Review Specialty Diagnoses / Procedures Referred By Contac t Referred To Contact Radiology Diagnoses Primary aldosteronism Procedures IR venography venous sample Feng Cloud MD [address] [place] [address] Phone: tel: fax: Referral ID Status Reason Start Date Expiration Date V isits Requested Visits Authorized [id number] Pending Review 01/23/2025 01/23/2026 1 1 Encounter Details Date Type Department Care Team (Latest Contact Info) Description 01/23/2025 Orders Only [facility] - Interventional Radiology [address] [place] [phone] Feng Cloud MD [address] [place] [address] Primary aldosteronism (CMS-HCC) (Primary Dx) Social History [...] advanced into the IVC and a 5 Bangladeshi vascular sheath was placed. Selective catheterization of [...] was achieved using a micropuncture set. A [employer] wire wasadvanced into the IVC and a 5 Bangl[place]hi vascular sheath was placed. Selectivecatheterization of the [...] unspecified documented in this encounter Care Teams Pediatric Dietician Relationship Specialty Start Date End Date Carlito Murillo MD PCP - General Family Medicine 06/06/19 documented as of this encounter
--- OUTSIDE RECORDS SUMMARY | 2025-09-06 13:54 | XMS_ITS | Encounter Summary ---
Author Organization [employer] [facility] Address [id number] [address] [place] [address] Care Team Providers Care Learning Manager Name Role Phone Carlito Murillo MD Primary Care Provider [phone] Reason for Referral * Diagnostic Imaging (Routine) - Closed Specialty Diagnoses / Procedures Referred By Contac t Referred To Contact Radiology Diagnoses Pain Procedures MRA head with and without contrast External, Scanning Provider Referral ID Status Reason Start Date Expiration Date Visits Re quested Visits Authorized [id number] Closed 11/10/2021 11/10/2022 1 1 * Diagnostic Imaging (Routine) - Closed Specialty Diagnoses / Procedures Referred By Contac t Referred To Contact Radiology Diagnoses Pain Procedures MR brain without contrast External, Scanning Provider Referral ID Status Reason Start Date Expiration Date Visits Re quested Visits Authorized [id number] Closed 11/10/2021 11/10/2022 1 1 Encounter Details Date Type Department Care Team ([facility] Contact Info) Description 11/10/2021 Orders Only [facility] [address] [place] [phone] Transcribe, Orders Support User Pain (Primary [...] pain documented in this encounter Care Teams Learning Manager Relationship Specialty Start Date End Date Carlito Murillo MD PCP - General Family Medicine 06/06/19 documented as of this encounter
--- OUTSIDE RECORDS SUMMARY | 2025-09-06 13:56 | XMS_ITS | CCD ---
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 CURRENT USE OF ASPIRIN] Onset: 11-26-2022 Episodic Other aftercare (1 source) Other 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 supervisor (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 therapy; Translations: [OTH DETENTION CURRENT DRUG THERAPY] Onset: 11-26-2022 Episodic Other [...] Range Facility Office Visiton 06-25-2025 Follow-up visit [id number] Aby Madrigal Cristina 1965 F Date Provider Department Center 06/25/2025 GOMEZ KENDALL RIAZ [facility] Family History Problem Relation Age of Onset Lung cancer Mother Accidental Father Lung cancer Sister Family Status - Relation Status Age at Mother Father Sister Brother Alive Level of Service:03411 MD OFFICE/OUTPATIENT ESTABLISHED MOD MDM 30 MIN Normal [facility] 36on 06-08-2025 36 Spoke to daughter shae mata stated she has everthing taken care of she didn't need to talk to us. Daughter states Badillo had a cath with a stent placement. Nothing needed at this time Normal [facility] 36 Please call pt regarding stress test. Daughter Rosita [phone]. Normal [facility] BASIC METABOLIC PANELon 05-22 Anion gap [Moles/Vol] 9 mmol/L Normal - [facility] Comment on above: Performed By: #### L [id number] #### [facility] (BEAKER) [address] [place] [address] Calcium [Mass/Vol] 8.1 mg/dL Low 8.6-10.3 [facility] Comment on above: Performed By: #### L [id number] #### [facility] (BEAKER) [address] [place] [address] Chloride [Moles/Vol] 111 mmol/L High 98-107 [facility] Comment on above: Performed By: #### L [id number] #### [facility] [address] [place] [address] CO2 [Moles/Vol] 24 mmol/L Normal 21-31 [facility] Comment on above: Performed By: #### L [id number] #### [facility] ([facility]) [address] [facility] [place] [place] [address] Creatinine [Mass/Vol] 0.90 mg/dL Normal 0.60-1.20 [facility] Comment on above: Performed By: #### L [id number] #### [facility] ([facility]) [address] [facility] [place] [address] GLOMERULAR FILTRATION RATE ML/MIN/1.73 SQ M.PREDICTED 73.2 mL/min/1.73m*2 Normal >60.0 [facility] Comment on above: Result Comment: The [facility]???s estimated glomerular filtration rate (eGFR) will no [...] individuals. Performed By: #### L [id number] #### [facility] ([facility] [address] [place] [address] Glucose [Mass/Vol] 87 mg/dL Normal 70-100 [facility] Comment on above: Performed By: #### L [id number] #### [facility] ([facility] [address] [place] [address] Potassium [Moles/Vol] 3.7 mmol/L Normal 3.5-5.1 [facility] Comment on above: Performed By: #### L [id number] #### [facility] ([facility] [address] [place] [address] Sodium [Moles/Vol] 140 mmol/L Normal 136-145 [facility] Comment on above: Performed By: #### L [id number] #### [facility] ([facility] [address] [place] [address] Urea nitrogen [Mass/Vol] 13 mg/dL Normal 7-25 [facility] Comment on above: Performed By: #### L [id number] #### [facility] ([facility]) [address] [place] [address] UREA NITROGEN/CREATININE (MASS RATIO) IN SER/PLAS 14.4 Normal [facility] Comment on above: Performed By: #### L [id number] #### [facility] ([facility] [address] [place] [address] CBCon 06-08-2025 Erythrocyte distribution width (RBC) [Ratio] 16.5 % High 11.5-15.0 [facility] Comment on above: Performed By: #### L [id number] ####[facility] ([facility] [place] [address] ERYTHROCYTE MEAN CORPUSCULAR HEMOGLOBIN CONCENTRATION (G/DL) BY AUTOMATED 31.8 g/dL Low 32.0-35.0 [facility] Comment on above: Performed By: #### L [id number] ####[facility] ([facility] [place] [address] Hematocrit (Bld) [Volume fraction] 35.2 % Low 36.0-45.0 [facility] Comment on above: Performed By: #### L [id number] ####[facility] (BEAKER)[address] [place] [address] Hemoglobin (Bld) [Mass/Vol] 11.2 g/dL Low 12.0-15.0 [facility] Comment on above: Performed By: #### L [id number] ####[facility] ([facility] [place] [address] MCH (RBC) [Entitic mass] 26.9 pg Low 27.0-33.0 [facility] Comment on above: Performed By: #### L [id number] ####[facility] ([facility])[address] [place] [address] MCV (RBC) [Entitic vol] 84.6 fL Normal 82.0-98.0 [facility] Comment on above: Performed By: #### L [id number] ####[facility] ([facility])[address] [place] [address] PLATELETS (10*3/UL) IN BLOOD AUTOMATED COUNT 172 10*3/uL Normal 150-400 [facility] Comment on above: Performed By: #### L [id number] ####[facility] ([facility])[address] [place] [address] RBC (Bld) [#/Vol] 4.16 10*6/uL Normal 3.80-5.00 [facility] Comment on above: Performed By: #### L [id number] ####[facility] ([facility])[address] [place] [address] WBC (Bld) [#/Vol] 5.53 10*3/uL Normal 4.00-10.60 [facility] Comment on above: Performed By: #### L [id number] ####[facility] ([facility] [place] [address] LIPID PANELon 06-08-2025 CHOL/HDL 2.3 mg/dL Normal [facility] Comment on above: Performed By: #### L [id number] ####[facility] (BEAKER)[address] [place], [place] [address] Cholesterol [Mass/Vol] 95 mg/dL Low 120-200 [facility] Comment on above: Performed By: #### L [id number] ####[facility] ([facility] [place] [address] Magnesium [Mass/Vol] 61 mg/dL Normal <150 [facility] Comment on above: Result Comment: TRIG LYCERIDE REFERENCE RANGE: 20 YEARS AND OLDER CARDIOVASCULAR RISK LESS THAN 150 mg/dL LOW RISK 150 TO 199 mg/dL BORDERLINE RISK 200 mg/dL AND GREATER HIGH RISK Performed By: #### L [id number] ####[facility] ([facility])[address] [place] [address] Magnesium [Mass/Vol] 42 mg/dL Normal 0-160 [facility] Comment on above: Performed By: #### L [id number] ####[facility] ([facility])[address] [place] [address] Magnesium [Mass/Vol] 41 mg/dL Normal 23-92 [facility] Comment on above: Performed By: #### L [id number] ####[facility] ([facility])[address] [facility] [place] [address] NON HDL CHOL. (LDL+VLDL) 54 Normal [facility] Comment on above: Performed By: #### L [id number] ####[facility] ([facility])[address] [facility] [place] [address] TOTAL VLDL-C 12 mg/dL Normal 0-40 [facility] Comment on above: Performed By: #### L [id number] ####[facility] ([facility])[address] [place] [address] NURSNOTEon 06-08-2025 NURSNOTE Discharge instructio ns given to patient and family. Patient left via wheelchair, private vehicle. Normal [facility] POCT GLUCOSE METER UNSOLICIT ED RESULTSon 06-08-2025 Glucose [Mass/Vol] 135 mg/dL High 70-105 [facility] Comment on above: Order Comment: Waive d Testing in the ED is performed under the ED CLIA certificate #[id number]. Result Comment: imcf add2 Performed By: #### L [id number] ####[facility] ([facility])[address] [place] [address] Glucose [Mass/Vol] 89 mg/dL Normal 70-105 [facility] Comment on above: Order Comment: Waive d Testing in the ED is performed under the ED CLIA certificate #[id number]. Result Comment: ndub ois3 Performed By: #### L [id number] ####[facility] ([facility])[address] [place] [address] ANTI-XA (HEPARIN LEVEL)on HEPARIN UNFRACTIONATED (U/ML) IN PPP BY CHROMOGENIC METHOD 0.53 IU/mL Normal 0.3-0.7 [facility] Comment on above: Order Comment: Check anti-Xa level every 6 hours while on heparin infusion, or per protocol. Result Comment: Radha roxaban and Apixaban will interfere with the anti Xa assay used to monitor UFH and LMWH. Performed By: #### L [id number] #### [facility] ([facility]) [address] [place] [address] APTTon 06-07-2025 ACTIVATED PARTIAL THROMBOPLASTIN TIME IN PPP BY COAGULATION ASSAY 37.6 Seconds High 25.0-35.0 [facility] Comment on above: Order Comment: Basel ine aPTT before initiating heparin infusion. Result Comment: Clin ical significance of the APTT is questionable in the presence of heparin. Performed By: #### L [id number] ####[facility] ([facility])[address] [place] [address] BASIC METABOLIC PANELon 05-22 Anion gap [Moles/Vol] 10 mmol/L Normal 7-20 [facility] Comment on above: Performed By: #### L [id number] ####[facility] ([facility])[address] [facility] [place] [address] Calcium [Mass/Vol] 8.6 mg/dL Normal 8.6-10.3 [facility] Comment on above: Performed By: #### L [id number] ####[facility] ([facility])[address] [place] [address] Chloride [Moles/Vol] 110 mmol/L High 98-107 [facility] Comment on above: Performed By: #### L [id number] ####[facility] (BEAKER)[address] [place] [address] CO2 [Moles/Vol] 26 mmol/L Normal 21-31 [facility] Comment on above: Performed By: #### L [id number] ####[facility] (BEAKER)[address] [place] [address] Creatinine [Mass/Vol] 1.07 mg/dL Normal 0.60-1.20 [facility] Comment on above: Performed By: #### L [id number] ####[facility] (BEAKER)[address] [place] [address] GLOMERULAR FILTRATION RATE ML/MIN/1.73 SQ M.PREDICTED 59.5 mL/min/1.73m*2 Low >60.0 [facility] Comment on above: Result Comment: The [facility]???s estimated glomerular filtration rate (eGFR) will no [...] of individuals. Performed By: #### L [id number] ####[facility] (BEAKER)[address] [place] [address] Glucose [Mass/Vol] 95 mg/dL Normal 70-100 [facility] Comment on above: Performed By: #### L [id number] ####[facility] (BEAKER)[address] [place] [address] Potassium [Moles/Vol] 3.8 mmol/L Normal 3.5-5.1 [facility] Comment on above: Performed By: #### L [id number] ####[facility] (BEAKER)[address] [place] [address] Sodium [Moles/Vol] 142 mmol/L Normal 136-145 [facility] Comment on above: Performed By: #### L [id number] ####[facility] ([facility] [place] [address] Urea nitrogen [Mass/Vol] 16 mg/dL Normal 7-25 [facility] Comment on above: Performed By: #### L [id number] ####[facility] ([facility])[address] [place] [address] UREA NITROGEN/CREATININE (MASS RATIO) IN SER/PLAS 15.0 Normal [facility] Comment on above: Performed By: #### L [id number] ####[facility] ([facility])[address] [place] [address] CBCon 06-07-2025 Erythrocyte distribution width (RBC) [Ratio] 16.6 % High 11.5-15.0 [facility] Comment on above: Performed By: #### L [id number] #### [facility] ([facility]) [address] [place] [address] ERYTHROCYTE MEAN CORPUSCULAR HEMOGLOBIN CONCENTRATION (G/DL) BY AUTOMATED 31.4 g/dL Low 32.0-35.0 [facility] Comment on above: Performed By: #### L [id number] #### [facility] ([facility] [address] [place] [address] Hematocrit (Bld) [Volume fraction] 36.6 % Normal 36.0-45.0 [facility] Comment on above: Performed By: #### L [id number] #### [facility] ([facility] [address] [place] [address] Hemoglobin (Bld) [Mass/Vol] 11.5 g/dL Low 12.0-15.0 [facility] Comment on above: Performed By: #### L [id number] #### [facility] (BEAKER) [address] [place] [address] MCH (RBC) [Entitic mass] 26.6 pg Low 27.0-33.0 [facility] Comment on above: Performed By: #### L [id number] #### [facility] ([facility]) [address] [place] [address] MCV (RBC) [Entitic vol] 84.5 fL Normal 82.0-98.0 [facility] Comment on above: Performed By: #### L [id number] #### [facility] ([facility]) [address] [place] [address] PLATELETS (10*3/UL) IN BLOOD AUTOMATED COUNT 186 10*3/uL Normal 150-400 [facility] Comment on above: Performed By: #### L [id number] #### [facility] ([facility]) [address] [place] [address] RBC (Bld) [#/Vol] 4.33 10*6/uL Normal 3.80-5.00 [facility] Comment on above: Performed By: #### L [id number] #### [facility] ([facility]) [address] [place] [address] WBC (Bld) [#/Vol] 4.78 10*3/uL Normal 4.00-10.60 [facility] Comment on above: Performed By: #### L [id number] #### [facility] ([facility]) [address] [place] [address] CONSULTon 06-07-2025 CONSULT -- Attestation with edits [...] personal documentation from me. Bijan Licea MD, LOCATED [facility]IN [facility] Cardiology Consult Note Reason for Consult: Positive stress test HPI: Aby Madrigal is a 59 y.o. female with a past medical history of hyperaldosteronism, hypertension, TIA, panic attacks and sleep apnea, prior history of smoking. Patient transferred to [facility] from [facility]. She presented to outside hospital with [...] outpatient but never done. She came to [facility] on 06/04/2025 with chest pain she [...] event of chest pain. On presentation to [facility], labs revealed troponin of 5. [...] medical history of Abnormal ECG, Diabetes mellitus ([facility]), Hyperlipidemia, Hypertension, Obstructive sleep apnea, Panic attacks, and Stroke ([facility]). Surgical History She has a [...] Recorded Vit (more content not included)... Normal [facility] HIGH SENSITIVITY TROPONIN Io n 06-07-2025 HS TROPONIN I (NG/L) 5 ng/L Normal <15 [facility] Comment on above: Performed By: #### L [id number] #### [facility] ([facility]) [address] [place] [address] HPon 06-07-2025 HP H&P reviewed. The patient was examined and there are changes to the H&P. Mrs. Madrigal continues to have chest pain at rest. Plan coronary angiography. Normal [facility] NURSNOTEon 06-07-2025 NURSNOTE [employer] Service Adviser was informed by [facility] that during transport patient reported 7/10 chest pain. [place] administered Fentanyl 75 mcg at 0221, Nitroglycerin was not given due to bradycardia. Chest pain has resolved since Fentanyl was given per patient. Patient arrived with IV Heparin running at 18/units/kg, IV temporarily discontinued awaiting orders. Normal [facility] PLATELET COUNTon 06-07-2025 PLATELETS (10*3/UL) IN BLOOD AUTOMATED COUNT 181 10*3/uL Normal 150-400 [facility] Comment on above: Performed By: #### L [id number] ####[facility] ([facility])[address] [place] [address] POCT GLUCOSE METER UNSOLICIT ED RESULTSon 06-07-2025 Glucose [Mass/Vol] 129 mg/dL High 70-105 [facility] Comment on above: Order Comment: Waive d Testing in the ED is performed under the ED CLIA certificate #[id number]. Result Comment: amcn eal2 Performed By: #### L [id number] #### [facility] ([facility]) [address] [place] [address] Glucose [Mass/Vol] 97 mg/dL Normal 70-105 [facility] Comment on above: Order Comment: Waive d Testing in the ED is performed under the ED CLIA certificate #[id number]. Result Comment: ndub ois3 Performed By: #### L [id number] #### [facility] (BEAKER) [address] [place] [address] Glucose [Mass/Vol] 97 mg/dL Normal 70-105 [facility] Comment on above: Order Comment: Waive d Testing in the ED is performed under the ED CLIA certificate #[id number]. Result Comment: ndub ois3 Performed By: #### L [id number] #### [facility] (BEAKER) [address] [place] [address] Orders Onlyon 06-05-2025 Orders Only [id number] Aby Madrigal 1965 F Date Provider Department Center 06/05/2025 [id number], HISTORICAL CARD [place] Family History Problem Relation Age of Onset Lung cancer Mother Accidental Father Lung cancer Sister Family Status - Relation Status Age at Mother Father Sister Brother Alive Normal [facility] X-ray reportOrdered By: Asad White on 05-21-2025 Study report [facility] [place] [facility] [address] [place] [id number] XRay Report Signed Patient: Aby Madrigal MR#: [id number] : 1965 Acct:[id number] Age/Sex: 59 / F ADM Date: 5 Loc: [place] Room: Type: [facility] Attending Dr: Elie Jackson DO Copies to: Elie Jackson DO~ Ordering Provider: Elie Jackson DO Date of Service: 05/21/25 XR/XR knee LT 4V*: M25.562 - Pain in left knee ([id number]) XR/XR knee RT 2V: M25.562 - Pain [...] 4V*on 05-21-2025 XR knee LT 4V* [facility] [place] [facility] [address] [place] [address] XRay Report Signed Patient: Aby Madrigal MR#: [id number] : 1965 Acct:[id number] Age/Sex: 59 / F ADM Date: 05/21/25 Loc: [place] Room: Type: [facility] Attending Dr: Elie Jackson DO Copies to: Elie Jackson DO Ordering Provider: Elie Jackson DO Date of Service: 05/21/25 XR/XR knee LT 4V*: M25.562 - Pain in left knee ([id number]) XR/XR knee RT 2V: M25.562 - Pain [...] Signed By: 05/21/251900 Normal [facility] 05-14-2025 [facility] Subjective Aby Madrigal is a 59 y.o. year old female patient being seen for a follow up s/p [facility] ER visit. Patient states she [...] troponin Hypomagnesemia NSTEMI (non-ST elevated myocardial infarction) ([facility]) Hypokalemia Coronary artery disease involving wiyot coronary artery of wiyot heart without angina pectoris Depression, major, severe recurrence ([facility]) Panic disorder Primary aldosteronism Resistant hypertension Hypertension [...] on 01/31/2025 she was evaluated at the [facility] because of chest pain. Workup was [...] Normocephalic and (more content not included)... Normal [facility] Office Visiton 05-14-2025 Follow-up visit [id number] Aby Madrigal 1965 F Date Provider Department Center 05/14/2025 GOMEZ KENDALL RIAZ [place] Family History Problem Relation Age of Onset Lung cancer Mother Accidental Father Lung cancer Sister Family Status - Relation Status Age at Mother Father Sister Brother Alive Level of Service:[id number] MD OFFICE/OUTPATIENT ESTABLISHED MOD MDM 30 MIN [facility] 3704-23-2025 37 1. Change carvedilol to 1.5 tablets twice daily. 2. Start taking spironolactone half tablet once daily. 3. You can stop clopidogrel in July 2025. [facility] Office Visiton 04-23-2025 Follow-up visit [id number] Aby Madrigal 1965 Date Provider Department Center 04/23/2025 GOMEZ KENDALL RIAZ [place] Family History Problem Relation Age of Onset Lung cancer Mother Accidental Father Lung cancer Sister Family Status - Relation Status Age at Mother Father Sister Brother Alive Level of Service:[id number] MD OFFICE/OUTPATIENT ESTABLISHED MOD MDM 30 MIN [facility] Orders Onlyon 04-20-2025 Orders Only [id number] Aby Madrigal 1965 Date Provider Department Center 04/20/2025 [id number], [facility] RIAZ [facility] Family History Problem Relation Age of Onset Lung cancer Mother Accidental Father Lung cancer Sister Family Status - Relation Status Age at Mother Father Sister Brother Alive [facility] 3704-10-2025 37 It was good to [...] see where your potassium levels are. Normal [facility] Follow-Upon 04-10-2025 Follow-Up [id number] Aby Madrigal 1965 F Date Provider Department Center 04/10/2025 [id number], [facility] Family History Problem Relation Age of Onset Lung cancer Mother Accidental Father Lung cancer Sister Family Status - Relation Status Age at Mother Father Sister Brother Alive Level of Service:86279 MD OFFICE/OUTPATIENT ESTABLISHED MOD MDM 30 MIN Reason for Visit and Comments: Adrenal Problem [420] - Follow up Normal [facility] Influenza virus B Ag [Prescaroline ce] in Upper respiratory specimen by Rapid immunoassayon 03-03-2025 FLUBV Ag IA.rapid Ql (Nph) Negative [facility] No Panel Informationon 03-03 Influenza Type A (Rapid) Negative [facility] POC SARS CoV-2 Antigen Negative [facility] 29on 03-02-2025 29 Addended by: EFNG CHRISTIE on: 03/02/2025 09:34 AM Modules accepted: Orders [facility] 36on 03-02-2025 36 Called patient over the phone at 9:10 AM - I have reviewed results from adrenal venous sampling performed on 02/07/2025 at [facility]. Patient met criteria for selectivity index [...] primary aldosteronism will proceed to surgical evaluation [facility] Orders Onlyon 03-02-2025 Orders Only [id number] Aby Madrigal 1965 F Date Provider Department Center 03/02/2025 [id number], [facility] Family History Problem Relation Age of Onset Lung cancer Mother Accidental Father Lung cancer Sister Family Status - Relation Status Age at Mother Father Sister Brother Alive [facility] 36on 02-28-2025 36 Results routed to you. [place] Please call patient and let her know that I've requested the test results from [facility]) Ill be able to discuss the results with her tomorrow Thank you [facility] 36on 02-26-2025 36 Patient called regarding IR venography she had done 02/07. Requesting to discuss results and how she should follow up per Dr. Christie [facility] Office Visiton 02-26-2025 Follow-up visit [id number] Aby Madrigal 1965 F Date Provider Department Center 02/26/2025 Octavio-GOMEZ [facility] Family History Problem Relation Age of Onset Lung cancer Mother Accidental Father Lung cancer Sister Family Status - Relation Status Age at Mother Father Sister Brother Alive Level of Service:72624 MD OFFICE/OUTPATIENT ESTABLISHED LOW MDM 20 MIN Normal [facility] Telephoneon 02-26-2025 Telephone [id number] Aby Madrigal 1965 F Provider Department Center 02/26/2025 JESSY MATSON [facility] Family History Problem Relation Age of Onset Lung cancer Mother Accidental Father Lung cancer Sister Family Status - Relation Status Age at Mother Father Sister Brother Alive [facility] Cortisol [Mass/Vol]on 2024 CORTISOL 5.2 ug/dL Normal [facility] Comment on above: Result Comment: Due to the diurnal variation of cortisol levels in normal subjects, all cortisol measurements should be referenced to the time of day of sample collection. AM Cortisol Age>=6 6.7-22.4 ug/dL PM Cortisol Age>=6 <10 ug/dL Performed By: #### 2 143-6 #### [facility] ([id number]) [address], [address] [place] [address] CORTISOL 5.2 ug/dL Normal [facility] Comment on above: Result Comment: Due to the diurnal variation of cortisol levels in normal subjects, all cortisol measurements should be referenced to the time of day of sample collection. AM Cortisol Age>=6 6.7-22.4 ug/dL PM Cortisol Age>=6 <10 ug/dL Performed By: #### 2 143-6 #### [facility] ([id number]) [address], [address] [place] [address] CORTISOL 10.9 ug/dL Normal [facility] Comment on above: Result Comment: Due to the diurnal variation of cortisol levels in normal subjects, all cortisol measurements should be referenced to the time of day of sample collection. AM Cortisol Age>=6 6.7-22.4 ug/dL PM Cortisol Age>=6 <10 ug/dL Performed By: #### 2 143-6 #### [facility] ([id number]) [address], [address] [place] [address] CORTISOL 11.1 ug/dL Normal [facility] Comment on above: Result Comment: Due to the diurnal variation of cortisol levels in normal subjects, all cortisol measurements should be referenced to the time of day of sample collection. AM Cortisol Age>=6 6.7-22.4 ug/dL PM Cortisol Age>=6 <10 ug/dL Performed By: #### 2 143-6 #### [facility] ([id number]) [address], [address] [place] [address] CORTISOL 5.7 ug/dL Normal [facility] Comment on above: Result Comment: Due to the diurnal variation of cortisol levels in normal subjects, all cortisol measurements should be referenced to the time of day of sample collection. AM Cortisol Age>=6 6.7-22.4 ug/dL PM Cortisol Age>=6 <10 ug/dL Performed By: #### 2 143-6 #### [facility] ([id number]) [address], [address] [place] [address] CORTISOL 14.3 ug/dL Normal [facility] Comment on above: Result Comment: Due to the diurnal variation of cortisol levels in normal subjects, all cortisol measurements should be referenced to the time of day of sample collection. AM Cortisol Age>=6 6.7-22.4 ug/dL PM Cortisol Age>=6 <10 ug/dL Performed By: #### 2 143-6 #### [facility] ([id number]) [address], [address] [address] [facility] ORDERon 025 TEST NAME AIVC INFERIOR VENA CAVA Normal [facility] Comment on above: Result Comment: Cody ected on 02/07 AT 1204: Previously reported as INFERIOR VENA CAVA TEST RESULT SEE COMMENTS 02/10/2025 12:12 AM Normal [facility] Comment on above: Result Comment: NOTE Test Result Flag Unit RefValue Aldosterone, IVC <4.0 ng/dL Not applicable ADDITIONAL INFORMATION This test was developed and its performance characteristics determined by [facility] in a manner consistent with CLIA requirements. This test has not been cleared or approved by the U.S. Food and Drug Administration. Test Performed by: [facility] [address] Digital Advertising Specialist: Shawanda Jimenez Ph.D.; CLIA# [id number] Result Comment: NOTE Test Result Flag Unit RefValue Aldosterone, LAV 32 ng/dL Not applicable ADDITIONAL INFORMATION This test was developed and its performance characteristics determined by [facility] in a manner consistent with CLIA requirements. This test has not been cleared or approved by the U.S. Food and Drug Administration. Test Performed by: [facility] [address] Digital Advertising Specialist: Shawanda Jimenez Ph.D.; CLIA# [id number] Result Comment: NOTE Test Result Flag Unit RefValue Aldosterone, LAV 28 ng/dL Not applicable ADDITIONAL INFORMATION This test was developed and its performance characteristics determined by [facility] in a manner consistent with CLIA requirements. This test has not been cleared or approved by the U.S. Food and Drug Administration. Test Performed by: [facility] [address] Digital Advertising Specialist: Shawanda Jimenez Ph.D.; CLIA# [id number] Result Comment: NOTE Test Result Flag Unit RefValue Aldosterone, KELLEY <4.0 ng/dL Not applicable ADDITIONAL INFORMATION This test was developed and its performance characteristics determined by [facility] in a manner consistent with CLIA requirements. This test has not been cleared or approved by the U.S. Food and Drug Administration. Test Performed by: [facility] [address] Digital Advertising Specialist: Shawanda Jimenez Ph.D.; CLIA# [id number] Result Comment: NOTE Test Result Flag Unit RefValue Aldosterone, KELLEY 74 ng/dL Not applicable ADDITIONAL INFORMATION This test was developed and its performance characteristics determined by [facility] in a manner consistent with CLIA requirements. This test has not been cleared or approved by the U.S. Food and Drug Administration. Test Performed by: [facility] [address] Digital Advertising Specialist: Shawanda Jimenez Ph.D.; CLIA# [id number] TEST NAME ALAV LEFT ADRENAL Normal [facility] TEST NAME ALAV LEFT ADRENAL Normal [facility] TEST NAME ARAV RIGHT ADRENAL Normal [facility] TEST NAME ARAV RIGHT ADRENAL Normal [facility] Telephoneon 01-18-2025 Telephone [id number] Aby Madrigal 1965 F Date Provider Department Center 01/18/2025 [id number] BOWMAN [facility] Family History Problem Relation Age of Onset Lung cancer Mother Accidental Father Lung cancer Sister Family Status - Relation Status Age at Mother Father Sister Brother Alive [facility] Follow-Upon 01-09-2025 Follow-Up [id number] Aby Madrigal 1965 F Date Provider Department [place] 01/09/2025 [id number]-BAICVFENG BOWMAN [facility] Family History Problem Relation Age of Onset Lung cancer Mother No Known Problems Father Lung cancer Sister Family Status - Relation Status Age at Mother Father Sister Level of Service:22452 MD OFFICE/OUTPATIENT ESTABLISHED LOW MDM 20 MIN [facility] 36on 01-04-2025 36 Called patient's daughter [...] time. Melanie thanked me for the call [facility] 3601-03-2025 36 Voicemail. Patient's daughter called in, she thought Dr. Christie was going to order testing where they go in through the groin to see which kidney is dumping off excess hormones, she would like a call back. [facility] Telephoneon 01-03-2025 Telephone [id number] Aby Madrigal 1965 F Date Provider Department Center 01/03/2025 [id number] BOWMAN [facility] Family History Problem Relation Age of Onset Lung cancer Mother No Known Problems Father Lung cancer Sister Family Status - Relation Status Age at Mother Father Sister Normal [facility] ALDOSTERONEon 01-02-2025 ALDOSTERONE (NG/DL) IN SER/PLAS 7.3 ng/dL Normal [facility] Comment on above: Result Comment: INTE RPRETIVE [...] reference intervals for this test in the [employer] Test Directory ([employer]). Performed By: [facility] [address] [place] [address] Rod Buster: Navneet Simeon MD, PhD CLIA Number: [id number] Performed By: #### L [id number] #### [facility] (BEAKER) [address] [place] [address] ALDOSTERONE (NG/DL) IN SER/PLAS 14.2 ng/dL Normal [facility] Comment on above: Result Comment: INTE RPRETIVE [...] reference intervals for this test in the [employer] Test Directory ([employer]). Performed By: [facility] [address] [place] [address] Rod Buster: Navneet Simeon MD, PhD CLIA Number: [id number] Performed By: #### L [id number] #### [facility] ([facility]) [address] [place] [address] CORTISOLon 01-02-2025 CORTISOL (UG/DL) IN SER/PLAS 3.6 ug/dL Normal 0-9 [facility] Comment on above: Performed By: #### L [id number] #### [facility] ([facility]) [address] [place] [address] CORTISOL (UG/DL) IN SER/PLAS 9.0 ug/dL Normal 6-23 [facility] Comment on above: Performed By: #### L [id number] #### [facility] ([facility]) [address] [place] [address] NURSNOTEon 01-02-2025 NURSNOTE T-0=[id number], at this ti me VS taken, IV [...] to BR and released. Normal [facility] POTASSIUMon 01-02-2025 Potassium [Moles/Vol] 3.9 mmol/L Normal 3.5-5.1 [facility] Comment on above: Performed By: #### L [id number] #### [facility] ([facility]) [address] [place] [address] Potassium [Moles/Vol] 4.0 mmol/L Normal 3.5-5.1 [facility] Comment on above: Performed By: #### L [id number] ####[facility] ([facility])[address] [place] [address] RENIN ACTIVITYon 01-02-2025 RENIN ACTIVITY <0.1 Normal [facility] Comment on above: Result Comment: INTE RPRETIVE [...] developed and its performance characteristics determined by [employer] [facility]. It has not been cleared or approved by the US Food and Drug Administration. This test was performed in a CLIA certified laboratory and is intended for clinical purposes. Performed By: [facility] [address] [place] [address], [place] [address] Rod Buster: Navneet Simeon MD, PhD CLIA Number: [id number] Performed By: #### L [id number] #### [facility] ([facility]) [address] [place] [address] RENIN ACTIVITY <0.1 Normal [facility] Comment on above: Result Comment: INTE RPRETIVE INFORMATION: Renin Activity Adult, Normal sodium diet: Supine ................. 0.2-1.6 ng/mL/hr Upright ................ 0.5-4.0 ng/mL/hr Children, Normal sodium diet, Supine: Dewey (1-7 days) ..... 2.0-35.0 ng/mL/hr Cord blood [...] developed and its performance characteristics determined by [employer] [facility]. It has not been cleared or approved by the US Food and Drug Administration. This test was performed in a CLIA certified laboratory and is intended for clinical purposes. Performed By: [facility] [address] [place] [address] Rod Buster: Navneet Simeon MD, PhD CLIA Number: [id number] Performed By: #### L [id number] #### [facility] (BEAKER) [address] [place] [address] Orders Only01-01-2025 Orders Only [id number] Strausbaugh,Aby S 1965 F Date Provider Department Center 01/01/2025 [id number] GRIDER [facility] 2A Second Fl Family History Problem Relation Age of Onset Lung cancer Mother No Known Problems Father Lung cancer Sister Family Status - Relation Status Age at Mother Father Sister Normal [facility] Orders Only [id number] Strausbaugh,Aby S 1965 F Date Provider Department Center 01/01/2025 1759-GIBSON GARCIA [facility] 2A Second Fl Family History Problem Relation Age of Onset Lung cancer Mother No Known Problems Father Lung cancer Sister Family Status - Relation Status Age at Mother Father Sister Normal [facility] Orders Onlyon 12-26-2024 Orders Only [id number] Strausbaugh,Aby S 1965 F Date Provider Department Center 12/26/2024 [id number] BLACKMAN [facility] 2A Second Fl Family History Problem Relation Age of Onset Lung cancer Mother No Known Problems Father Lung cancer Sister Family Status - Relation Status Age at Mother Father Sister Normal [facility] Orders Only [id number] Strausbaugh,Aby S 1965 F Date Provider Department Center 12/26/2024 1883-USHA DURON [facility] 2A Second Fl Family History Problem Relation Age of Onset Lung cancer Mother No Known Problems Father Lung cancer Sister Family Status - Relation Status Age at Mother Father Sister Normal [facility] Orders Only [id number] Strausbaugh,Aby S 1965 F Date Provider Department Center 12/26/2024 [id number] CORTEZ [facility] 2A Second Fl Family History Problem Relation Age of Onset Lung cancer Mother No Known Problems Father Lung cancer Sister Family Status - Relation Status Age at Mother Father Sister [facility] 36on 12-25-2024 36 Patient has not hear d from the [facility] about scheduling this, she is going to reach out to them directly, but could someone reach out to the [facility] about what's going on? [facility] Orders Onlyon 12-25-2024 Orders Only [id number] Strabaugh,Aby S 1965 F Date Provider Department Center 12/25/2024 190-JOSE PR[facility] Family History Problem Relation Age of Onset Lung cancer Mother No Known Problems Father Lung cancer Sister Family Status - Relation Status Age at Mother Father Sister [facility] Orders Only [id number] Stradaniela,Aby S 1965 F Date Provider Department Center 12/25/2024 GIBSON CISNEROS [facility] 2A Second Fl Family History Problem Relation Age of Onset Lung cancer Mother No Known Problems Father Lung cancer Sister Family Status - Relation Status Age at Mother Father Sister [facility] 36on 12-12-2024 36 Antonio I signed the orders for saline infusion test back on Oct 12 (its a Therapy Plan) Can we call the [facility] and ask what more do they need to get the patient scheduled thanks [facility] 36on 12-08-2024 36 Patient had not hear d from the [facility] about scheduling a Saline Infusion Test, when I look into the chart, I cannot find any orders [facility] Telephoneon 12-08-2024 Telephone [id number] Strababebe,Aby S 1965 F Date Provider Department Center 12/08/2024 [id number]-GGKUNFENG [facility]ANG [facility] Family History Problem Relation Age of Onset Lung cancer Mother No Known Problems Father Lung cancer Sister Family Status - Relation Status Age at Mother Father Sister [facility] Abstracton 11-21-2024 Abstract [id number] Aby Madrigal 1965 F Date Provider Department Center 11/21/2024 [id number]-WUONAV-JIDDARA CARTER [facility] ONC [facility] Family History Problem Relation Age of Onset Lung cancer Mother No Known Problems Father Lung cancer Sister Family Status - Relation Status Age at Mother Father Sister Normal [facility] CT CHEST WO IV CONTRASTon CT CHEST [...] MD. 5 Invalid Interpretation Code [facility] Office Visiton 10-26-2024 Follow-up visit [id number] Aby Madrigal 1965 F Date Provider Department Center 10/26/2024 Julio C-RICHA VIRAMONTES [facility]C [facility] Family History Problem Relation Age of Onset Lung cancer Mother No Known Problems Father Lung cancer Sister Family Status - Relation Status Age at Mother Father Sister Level of Service:95289 MD OFFICE/OUTPATIENT ESTABLISHED SF MDM 10 MIN () Reason for Visit and Comments: Follow-up [809011] - F/U to review CT scan that was done today. Normal [facility] 29on 10-03-2024 29 Addended by: FENG CHRISTIE on: 10/12/2024 10:02 AM Modules accepted: Orders [facility] 37on 10-03-2024 37 It was good [...] setting so you will not be alone. [facility] Follow-Upon 10-03-2024 Follow-Up [id number] Aby Madrigal S 1965 F Date Provider Department Center 10/03/2024 [id number]-CQQIL, WADE [facility] Family History Problem Relation Age of Onset Lung cancer Mother No Known Problems Father Lung cancer Sister Family Status - Relation Status Age at Mother Father Sister Level of Service:83170 MD OFFICE/OUTPATIENT ESTABLISHED MOD MDM 30 MIN Reason for Visit and Comments: Follow-up [[id number]] [facility] Office Visiton 09-04-2024 Follow-up visit [id number] Aby Madrigal 1965 F Date Provider Department Center 09/04/2024 GOMEZ KENDALL RIAZ [facility] Family History Problem Relation Age of Onset Lung cancer Mother No Known Problems Father Lung cancer Sister Family Status - Relation Status Age at Mother Father Sister Level of Service:47484 MD OFFICE/OUTPATIENT ESTABLISHED MOD MDM 30 MIN [facility] ALDOSTERONEon 08-29-2024 ALDOSTERONE (NG/DL) IN SER/PLAS 13.0 ng/dL [facility] Comment on above: Result Comment: INTE [...] reference intervals for this test in the [employer] [facility] Test Directory ([employer]). Performed By: [facility] [address] [place] [address] Rod Buster: Navneet Simeon MD, PhD CLIA Number: [id number] Performed By: #### L [id number] #### [facility] ([facility]) [address] [place] [address] Ron 08-29-2024 ALT [Catalytic activity/Vol] 25 U/L Normal 7-52 [facility] Comment on above: Performed By: #### L [id number] #### [facility] ([facility]) [address] [place] [address] Riki 08-29-2024 AST [Catalytic activity/Vol] 21 U/L Normal 13-39 [facility] Comment on above: Performed By: #### L [id number] #### [facility] (BEAKER) [address] [place] [address] BASIC METABOLIC PANELon 10-0 Anion gap [Moles/Vol] 12 mmol/L Normal 7-20 [facility] Comment on above: Performed By: #### L [id number] #### [facility] ([facility]) [address] [place] [address] Calcium [Mass/Vol] 9.3 mg/dL Normal 8.6-10.3 [facility] Comment on above: Performed By: #### L [id number] #### [facility] ([facility]) [address] [place] [address] Chloride [Moles/Vol] 105 mmol/L Normal 98-107 [facility] Comment on above: Performed By: #### L [id number] #### [facility] (BEAKER) [address] [place] [address] CO2 [Moles/Vol] 28 mmol/L Normal 21-31 [facility] Comment on above: Performed By: #### L [id number] #### [facility] (BEAKER) [address] [place] [address] Creatinine [Mass/Vol] 0.95 mg/dL Normal 0.60-1.20 [facility] Comment on above: Performed By: #### L [id number] #### [facility] [address] [place] [address] GLOMERULAR FILTRATION RATE ML/MIN/1.73 SQ M.PREDICTED 68.6 mL/min/1.73m*2 Normal >60.0 [facility] Comment on above: Result Comment: The [facility]???s estimated glomerular filtration rate (eGFR) will no [...] L AB557 #### [facility] (BEAKER) [address] [place] [address] Glucose [Mass/Vol] 99 mg/dL Normal 70-100 [facility] Comment on above: Performed By: #### L [id number] #### [facility] (BEAKER) [address] [place] [address] Potassium [Moles/Vol] 3.6 mmol/L Normal 3.5-5.1 [facility] Comment on above: Performed By: #### L [id number] #### [facility] (BEAKER) [address] [place] [address] Sodium [Moles/Vol] 141 mmol/L Normal 136-145 [facility] Comment on above: Performed By: #### L [id number] #### [facility] (BEAKER) [address] [place] [address] Urea nitrogen [Mass/Vol] 19 mg/dL Normal 7-25 [facility] Comment on above: Performed By: #### L [id number] #### [facility] (BEAKER) [address] [place] [address] UREA NITROGEN/CREATININE (MASS RATIO) IN SER/PLAS 20.0 Normal [facility] Comment on above: Performed By: #### L [id number] #### [facility] (BEAKER) [address] [place] [address] CORTISOLon 08-29-2024 CORTISOL (UG/DL) IN SER/PLAS 6.1 ug/dL Normal 0-9 [facility] Comment on above: Performed By: #### L [id number] #### [facility] (BEAKER) [address] [place] [address] CT ABDOMEN PELVIS W AND WO I [...] Marybeth Bryan. Not Vldtd Invalid Interpretation Code [facility] DEXAMETHASONE LEVELon 2023 DEXAMETHASONE <50.0 Normal [facility] Comment on above: Order Comment: Waive d Testing in the ED is performed under the ED CLIA certificate #[id number]. Result Comment: INTE RPRETIVE INFORMATION: Dexamethasone, Serum [...] developed and its performance characteristics determined by [employer] [facility]. It has not been cleared or approved by the US Food and Drug Administration. This test was performed in a CLIA certified laboratory and is intended for clinical purposes. Performed By: [facility] [address] [place] [address] Rod Buster: Navneet Simeon MD, PhD CLIA Number: [id number] Performed By: #### L [id number] #### [facility] (BEAKER) [address] [place] [address] LIPID PANELon 08-29-2024 CHOL/HDL 2.4 mg/dL Normal [facility] Comment on above: Performed By: #### L [id number] #### [facility] [address] [place] [address] Cholesterol [Mass/Vol] 80 mg/dL Low 120-200 [facility] Comment on above: Performed By: #### L [id number] #### [facility] ([facility] [address] [place] [address] Magnesium [Mass/Vol] 96 mg/dL Normal 40-149 [facility] Comment on above: Result Comment: TRIG LYCERIDE REFERENCE RANGE: 20 YEARS AND OLDER CARDIOVASCULAR RISK LESS THAN 150 mg/dL LOW RISK 150 TO 199 mg/dL BORDERLINE RISK 200 mg/dL AND GREATER HIGH RISK Performed By: #### L [id number] #### [facility] (BEAKER) [address] [place] [address] Magnesium [Mass/Vol] 28 mg/dL Normal 0-160 [facility] Comment on above: Performed By: #### L [id number] #### [facility] (BEAKER) [address] [place] [address] Magnesium [Mass/Vol] 33 mg/dL Normal 23-92 [facility] Comment on above: Performed By: #### L [id number] #### [facility] ([facility]) [address] [place] [address] NON HDL CHOL. (LDL+VLDL) 47 Normal [facility] Comment on above: Performed By: #### L [id number] #### [facility] ([facility]) [address] [place] [address] TOTAL VLDL-C 19 mg/dL Normal 0-40 [facility] Comment on above: Performed By: #### L [id number] #### [facility] ([facility]) [address] [place] [address] Labon 08-29-2024 Lab [id number] Aby Madrigal Cristina 1965 F Date Provider Department Center 08/29/2024 2245-[facility] OPD LAB RESOURCE [facility] OPD [facility] Family History Problem Relation Age of Onset Lung cancer Mother No Known Problems Father Lung cancer Sister Family Status - Relation Status Age at Mother Father Sister Normal [facility] RENIN ACTIVITYon 08-29-2024 RENIN ACTIVITY <0.1 Normal [facility] Comment on above: Result Comment: INTE RPRETIVE [...] developed and its performance characteristics determined by [employer]. It has not been cleared or approved by the US Food and Drug Administration. This test was performed in a CLIA certified laboratory and is intended for clinical purposes. Performed By: [facility] [address] [place] [address] Rod Buster: Navneet Simeon MD, PhD CLIA Number: [id number] Performed By: #### L [id number] #### [facility] (BEAKER) [address] [place] [address] 36on 08-10-2024 36 Updated patient on Nodify blood test results and plan for f/u CT and appt scheduled for 10/26/24. Normal [facility] Letter (Out)on 08-09-2024 Letter (Out) [id number] Aby Madrigal 1965 F Date Provider Department Center 08/09/2024 None-None [facility] ADMIT None Family History Problem Relation Age of Onset Lung cancer Mother No Known Problems Father Lung cancer Sister Family Status - Relation Status Age at Mother Father Sister Normal [facility] 36on 08-08-2024 36 Called patient over the phone at 9:17 AM - discussed recent lab results from [place] (including M cortisol of 1.7 after dex, renin undetectable, aldosterone level 4.4) - ruled out autonomous cortisol production - she has stopped spironolactone for about 2 weeks now, continue to hold this until our next appt and we will reassess ARR. We will meet again on Oct 03 She thanked me for the call Normal [facility] Orders Onlyon 08-08-2024 Orders Only [id number] Strausbaugh,Aby S 1965 F Date Provider Department Center 08/08/2024 RICHA MERINO ONC NICKI Family History Problem Relation Age of Onset Lung cancer Mother No Known Problems Father Lung cancer Sister Family Status - Relation Status Age at Mother Father Sister Normal [facility] Telephoneon 08-08-2024 Telephone [id number] Strausbaugh,Aby S 1965 F Date Provider Department Center 08/08/2024 FENG SWEENEY [facility] Family History Problem Relation Age of Onset Lung cancer Mother No Known Problems Father Lung cancer Sister Family Status - Relation Status Age at Mother Father Sister Normal [facility] Telemedicineon 07-20-2024 Telemedicine [id number] Strausbaugh,Aby S 1965 F Date Provider Department Center 07/20/2024 RICHA MERINO ONC NICKI Family History Problem Relation Age of Onset Lung cancer Mother No Known Problems Father Lung cancer Sister Family Status - Relation Status Age at Mother Father Sister Level of Service:31005 MD PHYS/QHP TELEPHONE EVALUATION 21-30 MIN (GC) Reason for Visit and Comments: New Patient [632] - 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 CT CHEST 04-21-24- PET 06-21-24 Films requested 07-18-24 HAVING HARD TIME GETTING FILMS FROM [facility] AGAIN. Ginny at [facility] ([phone] direct line) is working on sending them. CHECK [facility] FOR FILMS PLEASE Normal [facility] 37on 07-18-2024 37 It was great to [...] lab work done at one of these [place] [facility] The results will then come straight to me I appreciate it [facility] [address] Hours Wednesday - Wednesday 8 AM - 4PM (Closed 12 - 12:30 PM daily) Phone: [facility] [address] Hours: Wednesday 6 AM - 5 PM Saturday: 7 AM - 2 PM Phone: [address] [place] Hours: Wednesday - Wednesday 7 AM - 3:30 PM Phone: [facility] [address] Hours: Wednesday - Wednesday 7 AM - 5:30 PM Phone: Kayy Maurer [facility] [address] Hours: Wednesday 8 AM - 4:30 PM Phone: Normal [facility] EDNURSon 08-27-2024 EDNURS ADR and relevant inf o reported to [facility] in pharmacy d/t safety net being down. Viet Kelly RN 07/18/24 1139 Normal [facility] EDNURS SENT FROM MD OFFICE RE: LOW BP; RECENT DC FROM [facility] FOR SAME Normal [facility] EDPROVon 07-18-2024 EDPROV HPI Chief Complaint Patient [...] new meds yesterday. 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 [facility] Office Visiton 07-18-2024 Follow-up visit [id number] Aby Madrigal 1965 Date Provider Department Center 07/18/2024 [id number] BOWMAN [facility] Family History Problem Relation Age of Onset Lung cancer Mother No Known Problems Father Lung cancer Sister Family Status - Relation Status Age at Mother Father Sister Level of Service:89476 MD OFFICE/OUTPATIENT NEW MODERATE MDM 45 MINUTES Reason for Visit and Comments: Nodules [Other] [facility] Follow-up visit [id number] Aby Madrigal 1965 Date Provider Department Center 07/18/2024 [id number], WADE [facility] Family History Problem Relation Age of Onset Lung cancer Mother No Known Problems Father Lung cancer Sister Family Status - Relation Status Age at Mother Father Sister Level of Service:NOCHG 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 I am calling you to follow [...] No Patient Name Aby Madrigal Date 07/13/24 [facility] Telephoneon 07-13-2024 Telephone [id number] Aby Madrigal 1965 F Date Provider Department Center 07/13/2024 GINNY MALONEY [facility] C Family History Problem Relation Age of Onset Lung cancer Mother No Known Problems Father Lung cancer Sister Family Status - Relation Status Age at Mother Father Sister Reason for Visit and Comments: Hospital Follow-up [832] Normal [facility] 30on 07-12-2024 30 The patient is Moderately [...] these barriers include . Normal [facility] ANTI-XA (HEPARIN LEVEL)on HEPARIN UNFRACTIONATED (U/ML) IN PPP BY CHROMOGENIC METHOD 0.60 IU/mL Normal 0.3-0.7 [facility] Comment on above: Order Comment: Check anti-Xa level every 6 hours while on heparin infusion, or per protocol. Result Comment: Radha roxaban and Apixaban will interfere with the anti Xa assay used to monitor UFH and LMWH. Performed By: #### L [id number] #### [facility] ([facility]) [address] [place] [address] BASIC METABOLIC PANELon 06-23 Anion gap [Moles/Vol] 10 mmol/L Normal 7-20 [facility] Comment on above: Performed By: #### L [id number] #### [facility] ([facility]) [address] [place] [address] Calcium [Mass/Vol] 8.8 mg/dL Normal 8.6-10.3 [facility] Comment on above: Performed By: #### L [id number] #### [facility] ([facility]) [address] [place] [address] Chloride [Moles/Vol] 108 mmol/L High 98-107 [facility] Comment on above: Performed By: #### L [id number] #### [facility] [address] [place] [address] CO2 [Moles/Vol] 27 mmol/L Normal 21-31 [facility] Comment on above: Performed By: #### L [id number] #### [facility] ([facility] [address] [place] [address] Creatinine [Mass/Vol] 0.89 mg/dL Normal 0.60-1.20 [facility] Comment on above: Performed By: #### L [id number] #### [facility] [address] [place] [address] GLOMERULAR FILTRATION RATE ML/MIN/1.73 SQ M.PREDICTED 74.2 mL/min/1.73m*2 Normal >60.0 [facility] Comment on above: Result Comment: The [facility]???s estimated glomerular filtration rate (eGFR) will no [...] group of individuals. Performed By: #### L [id number] #### [facility] ([facility]) [address] [place] [address] Glucose [Mass/Vol] 109 mg/dL High 70-100 [facility] Comment on above: Performed By: #### L [id number] #### [facility] ([facility]) [address] [place] [address] Potassium [Moles/Vol] 3.4 mmol/L Low 3.5-5.1 [facility] Comment on above: Performed By: #### L [id number] #### [facility] ([facility]) [address] [place] [address] Sodium [Moles/Vol] 142 mmol/L Normal 136-145 [facility] Comment on above: Performed By: #### L [id number] #### [facility] ([facility]) [address] [place] [address] Urea nitrogen [Mass/Vol] 11 mg/dL Normal 7-25 [facility] Comment on above: Performed By: #### L [id number] #### [facility] ([facility]) [address] [place] [address] UREA NITROGEN/CREATININE (MASS RATIO) IN SER/PLAS 12.4 Normal [facility] Comment on above: Performed By: #### L [id number] #### [facility] [address] [place] [address] CBC WITH AUTO DIFFERENTIALon 07-12-2024 Basophils (Bld) [#/Vol] 0.04 10*3/uL Normal 0.00-0.20 [facility] Comment on above: Performed By: #### L [id number] ####[facility] ([facility])[address] [place] [address] Basophils/100 WBC (Bld) 0.6 % Normal 0.0-1.0 [facility] Comment on above: Performed By: #### L [id number] ####[facility] ([facility])[address] [place] [address] Eosinophils (Bld) [#/Vol] 0.22 10*3/uL Normal 0.00-0.50 [facility] Comment on above: Performed By: #### L [id number] ####[facility] ([facility])[address] [place] [address] Eosinophils/100 WBC (Bld) 3.5 % Normal 0.0-6.0 [facility] Comment on above: Performed By: #### L [id number] ####[facility] ([facility])[address] [place] [address] Erythrocyte distribution width (RBC) [Ratio] 14.5 % Normal 11.5-15.0 [facility] Comment on above: Performed By: #### L [id number] ####[facility] ([facility])[address] [place] [address] ERYTHROCYTE MEAN CORPUSCULAR HEMOGLOBIN CONCENTRATION (G/DL) BY AUTOMATED 32.7 g/dL Normal 32.0-35.0 [facility] Comment on above: Performed By: #### L [id number] ####[facility] ([facility])[address] [place] [address] Hematocrit (Bld) [Volume fraction] 34.2 % Low 36.0-48.0 [facility] Comment on above: Performed By: #### L [id number] ####[facility] ([facility])[address] [place] [address] Hemoglobin (Bld) [Mass/Vol] 11.2 g/dL Low 12.0-15.0 [facility] Comment on above: Performed By: #### L [id number] ####[facility] ([facility])[address] [place] [address] Immature granulocytes (Bld) [#/Vol] 0.01 10*3/uL Normal 0.00-0.20 [facility] Comment on above: Performed By: #### L [id number] ####[facility] ([facility])[address] [place] [address] Immature granulocytes/100 WBC (Bld) 0.2 % Normal 0.0-1.0 [facility] Comment on above: Performed By: #### L [id number] ####[facility] ([facility])[address] [place] [address] Lymphocytes (Bld) [#/Vol] 2.37 10*3/uL Normal 1.20-4.00 [facility] Comment on above: Performed By: #### L [id number] ####[facility] ([facility])[address] [place] [address] Lymphocytes/100 WBC (Bld) 37.8 % Normal 20.0-45.0 [facility] Comment on above: Performed By: #### L [id number] ####[facility] ([facility])[address] [place] [address] MCH (RBC) [Entitic mass] 27.4 pg Normal 27.0-33.0 [facility] Comment on above: Performed By: #### L [id number] ####[facility] ([facility])[address] [place] [address] MCV (RBC) [Entitic vol] 83.6 fL Normal 82.0-98.0 [facility] Comment on above: Performed By: #### L [id number] ####[facility] ([facility])[address] [place] [address] Monocytes (Bld) [#/Vol] 0.43 10*3/uL Normal 0.10-1.00 [facility] Comment on above: Performed By: #### L [id number] ####[facility] ([facility])[address] [place] [address] Monocytes/100 WBC (Bld) 6.9 % Normal 5.0-12.0 [facility] Comment on above: Performed By: #### L [id number] ####[facility] ([facility])[address] [place] [address] Neutrophils (Bld) [#/Vol] 3.20 10*3/uL Normal 1.60-7.60 [facility] Comment on above: Performed By: #### L [id number] ####[facility] ([facility])[address] [place] [address] Neutrophils/100 WBC (Bld) 51.0 % Normal 40.0-72.0 [facility] Comment on above: Performed By: #### L [id number] ####[facility] ([facility])[address] [place] [address] NRBC (PER 100 WBCS) BY AUTOMATED COUNT 0.0 % Normal 0 [facility] Comment on above: Performed By: #### L [id number] ####[facility] ([facility])[address] [place] [address] PLATELETS (10*3/UL) IN BLOOD AUTOMATED COUNT 223 10*3/uL Normal 150-400 [facility] Comment on above: Performed By: #### L [id number] ####[facility] ([facility])[address] [place] [address] RBC (Bld) [#/Vol] 4.09 10*6/uL Normal 3.80-5.00 [facility] Comment on above: Performed By: #### L [id number] ####[facility] ([facility])[address] [place] [address] WBC (Bld) [#/Vol] 6.27 10*3/uL Normal 4.00-10.60 [facility] Comment on above: Performed By: #### L [id number] ####[facility] ([facility])[address] [place] [address] MAGNESIUMon 07-12-2024 Magnesium [Mass/Vol] 1.7 mg/dL Low 1.9-2.7 [facility] Comment on above: Performed By: #### L [id number] #### [facility] ([facility]) [address] [place] [address] POCT GLUCOSE METER UNSOLICIT ED RESULTSon 07-12-2024 Glucose [Mass/Vol] 102 mg/dL Normal 70-105 [facility] Comment on above: Order Comment: Waive d Testing in the ED is performed under the ED CLIA certificate #[id number]. Result Comment: [email or web address] Performed By: #### L [id number] #### [facility] ([facility]) [address] [place] [address] TROPONIN Ion 07-12-2024 Troponin I.cardiac [Mass/Vol] 0.01 ng/mL Normal 0.00-0.04 [facility] Comment on above: Performed By: #### L [id number] #### [facility] ([facility]) [address] [place] [address] 30on 07-11-2024 30 The patient is Moderately [...] or improved Outcome: Progressing Normal [facility] 30 The patient is Moderately Stable - [...] these barriers include . Normal [facility] ALDOSTERONEon 07-11-2024 ALDOSTERONE (NG/DL) IN SER/PLAS 4.9 ng/dL Normal [facility] Comment on above: Result Comment: INTE RPRETIVE [...] reference intervals for this test in the [employer] Laboratory Test Directory ([employer]). Performed By: [employer] [address] [place] [address] Rod Buster: Navneet Simeon MD, PhD CLIA Number: [id number] Performed By: #### L [id number] #### [facility] ([facility]) [address] [place] [address] ANTI-XA (HEPARIN LEVEL)on HEPARIN UNFRACTIONATED (U/ML) IN PPP BY CHROMOGENIC METHOD 0.42 IU/mL Normal 0.3-0.7 [facility] Comment on above: Order Comment: Check anti-Xa level every 6 hours while on heparin infusion, or per protocol. Result Comment: Radha roxaban and Apixaban will interfere with the anti Xa assay used to monitor UFH and LMWH. Performed By: #### L [id number] ####[facility] ([facility])[address] [place] [address] HEPARIN UNFRACTIONATED (U/ML) IN PPP BY CHROMOGENIC METHOD 0.20 IU/mL Low 0.3-0.7 [facility] Comment on above: Order Comment: Check anti-Xa level every 6 hours while on heparin infusion, or per protocol. Result Comment: Radha roxaban and Apixaban will interfere with the anti Xa assay used to monitor UFH and LMWH. Performed By: #### L [id number] #### [facility] ([facility]) [address] [place] [address] APTTon 07-11-2024 ACTIVATED PARTIAL THROMBOPLASTIN TIME IN PPP BY COAGULATION ASSAY 43.0 Seconds High 25.0-35.0 [facility] Comment on above: Result Comment: Clin ical significance of the APTT is questionable in the presence of heparin. Performed By: #### L [id number] #### [facility] ([facility]) [address] [place] [address] BASIC METABOLIC PANELon 06-23 Anion gap [Moles/Vol] 9 mmol/L Normal 7-20 [facility] Comment on above: Performed By: #### L [id number] #### [facility] ([facility] [address] [place] [address] Calcium [Mass/Vol] 8.8 mg/dL Normal 8.6-10.3 [facility] Comment on above: Performed By: #### L [id number] #### [facility] ([facility] [address] [place] [address] Chloride [Moles/Vol] 108 mmol/L High 98-107 [facility] Comment on above: Performed By: #### L [id number] #### [facility] ([facility] [address] [place] [address] CO2 [Moles/Vol] 28 mmol/L Normal 21-31 [facility] Comment on above: Performed By: #### L [id number] #### [facility] ([facility]) [address] [place] [address] Creatinine [Mass/Vol] 1.09 mg/dL Normal 0.60-1.20 [facility] Comment on above: Performed By: #### L [id number] #### [facility] ([facility] [address] [place] [address] GLOMERULAR FILTRATION RATE ML/MIN/1.73 SQ M.PREDICTED 58.2 mL/min/1.73m*2 Low >60.0 [facility] Comment on above: Result Comment: The [facility]???s estimated glomerular filtration rate (eGFR) will no [...] L [id number] #### [facility] ([facility]) [address] [place] [address] Glucose [Mass/Vol] 113 mg/dL High 70-100 [facility] Comment on above: Performed By: #### L [id number] #### [facility] ([facility]) [address] [place] [address] Potassium [Moles/Vol] 3.4 mmol/L Low 3.5-5.1 [facility] Comment on above: Performed By: #### L [id number] #### [facility] ([facility]) [address] [place] [address] Sodium [Moles/Vol] 142 mmol/L Normal 136-145 [facility] Comment on above: Performed By: #### L [id number] #### [facility] ([facility]) [address] [place] [address] Urea nitrogen [Mass/Vol] 14 mg/dL Normal 7-25 [facility] Comment on above: Performed By: #### L [id number] #### [facility] ([facility]) [address] [place] [address] UREA NITROGEN/CREATININE (MASS RATIO) IN SER/PLAS 12.8 Normal [facility] Comment on above: Performed By: #### L [id number] #### [facility] ([facility]) [address] [place] [address] CBC WITH AUTO DIFFERENTIALon 07-11-2024 Basophils (Bld) [#/Vol] 0.04 10*3/uL Normal 0.00-0.20 [facility] Comment on above: Performed By: #### L [id number] #### [facility] ([facility]) [address] [place] [address] Basophils/100 WBC (Bld) 0.6 % Normal 0.0-1.0 [facility] Comment on above: Performed By: #### L [id number] #### [facility] ([facility]) [address] [place] [address] Eosinophils (Bld) [#/Vol] 0.16 10*3/uL Normal 0.00-0.50 [facility] Comment on above: Performed By: #### L [id number] #### [facility] ([facility] [address] [place] [address] Eosinophils/100 WBC (Bld) 2.2 % Normal 0.0-6.0 [facility] Comment on above: Performed By: #### L [id number] #### [facility] ([facility]) [address] [place] [address] Erythrocyte distribution width (RBC) [Ratio] 14.6 % Normal 11.5-15.0 [facility] Comment on above: Performed By: #### L [id number] #### [facility] ([facility] [address] [place] [address] ERYTHROCYTE MEAN CORPUSCULAR HEMOGLOBIN CONCENTRATION (G/DL) BY AUTOMATED 32.0 g/dL Normal 32.0-35.0 [facility] Comment on above: Performed By: #### L [id number] #### [facility] ([facility]) [address] [place] [address] Hematocrit (Bld) [Volume fraction] 36.2 % Normal 36.0-48.0 [facility] Comment on above: Performed By: #### L [id number] #### [facility] ([facility]) [address] [place] [address] Hemoglobin (Bld) [Mass/Vol] 11.6 g/dL Low 12.0-15.0 [facility] Comment on above: Performed By: #### L [id number] #### [facility] ([facility]) [address] [place] [address] Immature granulocytes (Bld) [#/Vol] 0.02 10*3/uL Normal 0.00-0.20 [facility] Comment on above: Performed By: #### L [id number] #### [facility] ([facility]) [address] [place] [address] Immature granulocytes/100 WBC (Bld) 0.3 % Normal 0.0-1.0 [facility] Comment on above: Performed By: #### L [id number] #### [facility] ([facility]) [address] [place] [address] Lymphocytes (Bld) [#/Vol] 2.34 10*3/uL Normal 1.20-4.00 [facility] Comment on above: Performed By: #### L [id number] #### [facility] ([facility]) [address] [place] [address] Lymphocytes/100 WBC (Bld) 32.6 % Normal 20.0-45.0 [facility] Comment on above: Performed By: #### L [id number] #### [facility] ([facility]) [address] [place] [address] MCH (RBC) [Entitic mass] 27.2 pg Normal 27.0-33.0 [facility] Comment on above: Performed By: #### L [id number] #### [facility] ([facility]) [address] [place] [address] MCV (RBC) [Entitic vol] 85.0 fL Normal 82.0-98.0 [facility] Comment on above: Performed By: #### L [id number] #### [facility] ([facility]) [address] [place] [address] Monocytes (Bld) [#/Vol] 0.49 10*3/uL Normal 0.10-1.00 [facility] Comment on above: Performed By: #### L [id number] #### [facility] ([facility]) [address] [place] [address] Monocytes/100 WBC (Bld) 6.8 % Normal 5.0-12.0 [facility] Comment on above: Performed By: #### L [id number] #### [facility] ([facility]) [address] [place] [address] Neutrophils (Bld) [#/Vol] 4.13 10*3/uL Normal 1.60-7.60 [facility] Comment on above: Performed By: #### L [id number] #### [facility] ([facility]) [address] [place] [address] Neutrophils/100 WBC (Bld) 57.5 % Normal 40.0-72.0 [facility] Comment on above: Performed By: #### L [id number] #### [facility] ([employer]) [address] [place] [address] NRBC (PER 100 WBCS) BY AUTOMATED COUNT 0.0 % Normal 0 [facility] Comment on above: Performed By: #### L [id number] #### [facility] ([employer]) [address] [place] [address] PLATELETS (10*3/UL) IN BLOOD AUTOMATED COUNT 245 10*3/uL Normal 150-400 [facility] Comment on above: Performed By: #### L [id number] #### [facility] ([facility] [address] [place] [address] RBC (Bld) [#/Vol] 4.26 10*6/uL Normal 3.80-5.00 [facility] Comment on above: Performed By: #### L [id number] #### [facility] ([facility]) [address] [place] [address] WBC (Bld) [#/Vol] 7.18 10*3/uL Normal 4.00-10.60 [facility] Comment on above: Performed By: #### L [id number] #### [facility] ([facility]) [address] [place] [address] CONSULTon 07-11-2024 CONSULT -- Attestation signed by [...] Brown is the endocrine surgeon in the [place] area that would be most appropriate and [...] patient is presenting as a transfer from [facility] for the evaluation of chest pain. [...] Obstructive sleep apnea, Panic attacks, and Stroke (CMS/[facility]). Surgical History She has a [...] Value Ventricular Rate 56 Atrial Rate 56 MD Interval 180 QRS DURATION 94 QT Interval 430 QTC (more content not included)... Normal [facility] EDPROVon 07-11-2024 EDPROV HPI Chief Complaint Patient [...] Pt states she was trasnfered here from [facility] to be transferred to cardiology. Pt states she had a cardiac stent placed last week. She denies fever, coughing, vomiting, abdominal pain. She admits diarrhea. She felt better when given ativan and worse when she was given morphine. She has had her gallbladder removed. 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 The Emergency Physician/CARDIOTHORACIC SURGEON/PA-C assumes full responsibility for those entries. The Emergency Physician/CARDIOTHORACIC SURGEON/PA-C also attests that any patient testing or treatment that was instituted by nursing staff. [facility] EDPROV HPI Chief Complaint Patient presents [...] Pt states she was trasnfered here from [facility] [place] to be transferred to cardiology. Pt states she had a cardiac stent placed last week. She denies fever, coughing, vomiting, abdominal pain. She admits diarrhea. She felt better when given ativan and worse when she was given morphine. She has had her gallbladder removed. 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: No Chest Pain Associated symptoms: no abdominal pain, no cough, no fever and no vomiting [place] Coma Scale Score: 15 Patient History Past Medical History: Diagnosis Date Abnormal ECG Diabetes mellitus ([facility]) Hyperlipidemia Hypertension Obstructive sleep apnea Panic attacks Stroke ([facility]) Past Surgical History: Procedure Laterality [...] 07/11/24 1256 NSTEMI (non-ST elevated myocardial infarction) ([facility]) Medical Decision Making Amount and/or Complexity of Data Reviewed Labs: ordered. Decision-making details documented in ED Course. ECG/medicine tests: ordered and independent interpretation performed. Decision-making details documented in ED Course. Risk Drug therapy requiring intensive monitoring for toxicity. Decision regarding hospitalization. Minor surgery with identified risk factors. I, Basilia diallo (more content not included)... Invalid Interpretation Code [facility] POCT GLUCOSE METER UNSOLICIT ED RESULTSon 07-11-2024 Glucose [Mass/Vol] 122 mg/dL High 70-105 [facility] Comment on above: Order Comment: Waive d Testing in the ED is performed under the ED CLIA certificate #[id number]. Result Comment: [email or web address] Performed By: #### L [id number] #### [facility] ([employer]) [address] [place] [address] PROTIME-INRon 07-11-2024 INR IN PPP BY COAGULATION ASSAY 1.00 Normal 0.90-1.10 [facility] Comment on above: Result Comment: ACCC P [...] 1995;[id number]. Performed By: #### L [id number] #### [facility] (BEAKER) [address] [place] [address] PROTHROMBIN TIME (PT) IN PPP BY COAGULATION ASSAY 13.2 Seconds Normal 12.3-14.8 [facility] Comment on above: Performed By: #### L [id number] #### [facility] [address] RENIN ACTIVITYon 07-11-2024 RENIN ACTIVITY <0.1 Normal [facility] Comment on above: Result Comment: INTE RPRETIVE [...] developed and its performance characteristics determined by [employer]. It has not been cleared or approved by the US Food and Drug Administration. This test was performed in a CLIA certified laboratory and is intended for clinical purposes. Performed By: [employer] [address] [place] [address] Rod Buster: Navneet Simeon MD, PhD CLIA Number: [id number] Performed By: #### L [id number] #### [facility] (BEAKER) [address] [place] [address] TROPONIN Ion 07-11-2024 Troponin I.cardiac [Mass/Vol] 0.01 ng/mL Normal 0.00-0.04 [facility] Comment on above: Performed By: #### L [id number] ####[facility] (BEAKER)[address] [place] [address] Office Visiton 07-10-2024 Follow-up visit [id number] Aby Madrigal 1965 F Date Provider Department Center 07/10/2024 [id number] VAZQUEZ [facility] [place] Family History Problem Relation Age of Onset Lung cancer Mother No Known Problems Father Lung cancer Sister Family Status - Relation Status Age at Mother Father Sister Level of Service:08539 MD OFFICE/OUTPATIENT ESTABLISHED MOD MDM 30 MIN Reason for Visit and Comments: Coronary Artery Disease [187] Post-Cath [731] Normal [facility] 36on 07-03-2024 36 Post Discharge Call Good morning, I am Ginny Garcia, RN a lead nurse from [facility]. I am calling you to follow [...] No Patient Name Aby Madrigal Date 07/03/24 [facility] Telephoneon 07-03-2024 Telephone [id number] Aby Madrigal 1965 F Date Provider Department Center 07/03/2024 Adela-GINNY GARCIA [facility] Family History Problem Relation Age of Onset Lung cancer Mother No Known Problems Father Lung cancer Sister Family Status - Relation Status Age at Mother Father Sister Reason for Visit and Comments: Hospital Follow-up [832] [facility] 30on 07-01-2024 30 The patient is [...] or improved Outcome: Progressing Normal [facility] BASIC METABOLIC PANELon 08- Anion gap [Moles/Vol] 14 mmol/L Normal - [facility] Comment on above: Performed By: #### L [id number] #### [facility] (BEAKER) [address] [place] [address] Calcium [Mass/Vol] 8.2 mg/dL Low 8.6-10.3 [facility] Comment on above: Performed By: #### L [id number] #### [facility] (BEAKER) [address] [place] [address] Chloride [Moles/Vol] 106 mmol/L Normal 98-107 [facility] Comment on above: Performed By: #### L [id number] #### [facility] ([facility]) [address] [place] [address] CO2 [Moles/Vol] 25 mmol/L Normal 21-31 [facility] Comment on above: Performed By: #### L [id number] #### [facility] ([facility]) [address] [place] [address] Creatinine [Mass/Vol] 0.91 mg/dL Normal 0.60-1.20 [facility] Comment on above: Performed By: #### L [id number] #### [facility] ([facility]) [address] [place] [address] GLOMERULAR FILTRATION RATE ML/MIN/1.73 SQ M.PREDICTED 72.2 mL/min/1.73m*2 Normal >60.0 [facility] Comment on above: Result Comment: The [facility]???s estimated glomerular filtration rate (eGFR) will no [...] individuals. Performed By: #### L [id number] #### [facility] ([facility]) [address] [place] [address] Glucose [Mass/Vol] 101 mg/dL High 70-100 [facility] Comment on above: Performed By: #### L [id number] #### [facility] ([facility]) [address] [place] [address] Potassium [Moles/Vol] 3.5 mmol/L Normal 3.5-5.1 [facility] Comment on above: Performed By: #### L [id number] #### [facility] (BE[facility]ER) [address] [place] [address] Sodium [Moles/Vol] 141 mmol/L Normal 136-145 [facility] Comment on above: Performed By: #### L [id number] #### [facility] ([facility]ER) [address] [place] [address] Urea nitrogen [Mass/Vol] 13 mg/dL Normal 7-25 [facility] Comment on above: Performed By: #### L [id number] #### [facility] [address] [place] [address] UREA NITROGEN/CREATININE (MASS RATIO) IN SER/PLAS 14.3 Normal [facility] Comment on above: Performed By: #### L [id number] #### [facility] ([facility] [address] [place] [address] CBCon 07-01-2024 Erythrocyte distribution width (RBC) [Ratio] 15.4 % High 11.5-15.0 [facility] Comment on above: Performed By: #### L [id number] ####[facility] ([facility] [place] [address] ERYTHROCYTE MEAN CORPUSCULAR HEMOGLOBIN CONCENTRATION (G/DL) BY AUTOMATED 32.1 g/dL Normal 32.0-35.0 [facility] Comment on above: Performed By: #### L [id number] ####[facility] ([facility] [place] [address] Hematocrit (Bld) [Volume fraction] 38.6 % Normal 36.0-48.0 [facility] Comment on above: Performed By: #### L [id number] ####[facility] (BEAKER)[address] [place], [place] [address] Hemoglobin (Bld) [Mass/Vol] 12.4 g/dL Normal 12.0-15.0 [facility] Comment on above: Performed By: #### L [id number] ####[facility] (BEAKER)[address] [place] [address] MCH (RBC) [Entitic mass] 26.9 pg Low 27.0-33.0 [facility] Comment on above: Performed By: #### L [id number] ####[facility] ([facility] [place] [address] MCV (RBC) [Entitic vol] 83.7 fL Normal 82.0-98.0 [facility] Comment on above: Performed By: #### L [id number] ####[facility] ([facility])[address] [place] [address] PLATELETS (10*3/UL) IN BLOOD AUTOMATED COUNT 238 10*3/uL Normal 150-400 [facility] Comment on above: Performed By: #### L [id number] ####[facility] ([facility])[address] [place] [address] RBC (Bld) [#/Vol] 4.61 10*6/uL Normal 3.80-5.00 [facility] Comment on above: Performed By: #### L [id number] ####[facility] ([facility])[address] [place] [address] WBC (Bld) [#/Vol] 7.04 10*3/uL Normal 4.00-10.60 [facility] Comment on above: Performed By: #### L [id number] ####[facility] ([facility] [place] [address] LIPID PANELon 07-01-2024 CHOL/HDL 3.8 mg/dL Normal [facility] Comment on above: Performed By: #### L [id number] #### [facility] ([facility]) [address] [place] [address] Cholesterol [Mass/Vol] 128 mg/dL Normal 120-200 [facility] Comment on above: Performed By: #### L [id number] #### [facility] ([facility]) [address] [place] [address] Magnesium [Mass/Vol] 87 mg/dL Normal 40-149 [facility] Comment on above: Result Comment: TRIG LYCERIDE REFERENCE RANGE: 20 YEARS AND OLDER CARDIOVASCULAR RISK LESS THAN 150 mg/dL LOW RISK 150 TO 199 mg/dL BORDERLINE RISK 200 mg/dL AND GREATER HIGH RISK Performed By: #### L [id number] #### [facility] ([facility]) [address] [place] [address] Magnesium [Mass/Vol] 77 mg/dL Normal 0-160 [facility] Comment on above: Performed By: #### L [id number] #### [facility] ([facility]) [address] [place] [address] Magnesium [Mass/Vol] 34 mg/dL Normal 23-92 [facility] Comment on above: Performed By: #### L [id number] #### [facility] ([facility]) [address] [place] [address] NON HDL CHOL. (LDL+VLDL) 94 Normal [facility] Comment on above: Performed By: #### L [id number] #### [facility] ([facility]) [address] [place] [address] TOTAL VLDL-C 17 mg/dL Normal 0-40 [facility] Comment on above: Performed By: #### L [id number] #### [facility] ([facility]) [address] [place] [address] MAGNESIUMon 07-01-2024 Magnesium [Mass/Vol] 2.0 mg/dL Normal 1.9-2.7 [facility] Comment on above: Performed By: #### L [id number] #### [facility] (BEAKER) [address] [place] [address] NURSNOTEon 07-01-2024 NURSNOTE Discharge instructio ns given, reviewed, questions, answered, signed, copy received. Normal [facility] POCT GLUCOSE METER UNSOLICIT ED RESULTSon 07-01-2024 Glucose [Mass/Vol] 124 mg/dL High 70-105 [facility] Comment on above: Order Comment: Waive d Testing in the ED is performed under the ED CLIA certificate #[id number]. Result Comment: [email or web address] Performed By: #### L [id number] #### [facility] ([facility] [address] [place] [address] Glucose [Mass/Vol] 106 mg/dL High 70-105 [facility] Comment on above: Order Comment: Waive d Testing in the ED is performed under the ED CLIA certificate #[id number]. Result Comment: [email or web address] Performed By: #### L [id number] #### [facility] ([facility]) [address] [place] [address] TROPONIN Ion 07-01-2024 Troponin I.cardiac [Mass/Vol] 0.09 ng/mL High 0.00-0.04 [facility] Comment on above: Performed By: #### L [id number] #### [facility] ([facility]) [address] [place] [address] 30on 06-30-2024 30 The patient is Moderately Stable - Low risk of patient condition declining or worsening The patient's goals for the shift include comfort, rest The clinical goals for the shift include stable vitals, comfort Problem: Pain - Adult Goal: Verbalizes/displays adequate comfort level or baseline comfort level Outcome: Not Progressing [facility] 30 Daily Case Managemen t Update [...] OT Recommendations: New Consults: Normal [facility] 30 The patient is Moderately Stable - Low risk of patient condition declining or worsening The patient's goals for the shift include COMFORT The clinical goals for the shift include VSS Over the shift, the patient did not make progress toward the following goals. Barriers to progression include . Recommendations to address these barriers include . Normal [facility] ANTI-XA (HEPARIN LEVEL)on HEPARIN UNFRACTIONATED (U/ML) IN PPP BY CHROMOGENIC METHOD 0.64 IU/mL Normal 0.3-0.7 [facility] Comment on above: Order Comment: Check anti-Xa level every 6 hours while on heparin infusion, or per protocol. Result Comment: Radha roxaban and Apixaban will interfere with the anti Xa assay used to monitor UFH and LMWH. Performed By: #### L [id number] ####[facility] ([facility])[address] [place] [address] BASIC METABOLIC PANELon Anion gap [Moles/Vol] 11 mmol/L Normal 7-20 [facility] Comment on above: Performed By: #### L [id number] #### [facility] ([facility]) [address] [place] [address] Calcium [Mass/Vol] 8.3 mg/dL Low 8.6-10.3 [facility] Comment on above: Performed By: #### L [id number] #### [facility] ([facility]) [address] [place] [address] Chloride [Moles/Vol] 110 mmol/L High 98-107 [facility] Comment on above: Performed By: #### L [id number] #### [facility] ([facility]) [address] [place] [address] CO2 [Moles/Vol] 26 mmol/L Normal 21-31 [facility] Comment on above: Performed By: #### L [id number] #### [facility] ([facility]) [address] [place] [address] Creatinine [Mass/Vol] 0.81 mg/dL Normal 0.60-1.20 [facility] Comment on above: Performed By: #### L [id number] #### [facility] ([facility]) [address] [facility] [place] [address] GLOMERULAR FILTRATION RATE ML/MIN/1.73 SQ M.PREDICTED 83.1 mL/min/1.73m*2 Normal >60.0 [facility] Comment on above: Result Comment: The [facility]???s estimated glomerular filtration rate (eGFR) will no [...] individuals. Performed By: #### L [id number] #### [facility] ([facility]) [address] [place] [address] Glucose [Mass/Vol] 110 mg/dL High 70-100 [facility] Comment on above: Performed By: #### L [id number] #### [facility] ([facility]) [address] [place] [address] Potassium [Moles/Vol] 3.7 mmol/L Normal 3.5-5.1 [facility] Comment on above: Performed By: #### L [id number] #### [facility] ([facility]) [address] [place] [address] Sodium [Moles/Vol] 143 mmol/L Normal 136-145 [facility] Comment on above: Performed By: #### L [id number] #### [facility] ([facility]) [address] [place] [address] Urea nitrogen [Mass/Vol] 10 mg/dL Normal 7-25 [facility] Comment on above: Performed By: #### L [id number] #### [facility] ([facility]) [address] [place] [address] UREA NITROGEN/CREATININE (MASS RATIO) IN SER/PLAS 12.3 Normal [facility] Comment on above: Performed By: #### L [id number] #### [facility] ([facility] [address] [place] [address] CBCon 06-30-2024 Erythrocyte distribution width (RBC) [Ratio] 15.3 % High 11.5-15.0 [facility] Comment on above: Performed By: #### L [id number] #### [facility] ([facility]) [address] [place] [address] ERYTHROCYTE MEAN CORPUSCULAR HEMOGLOBIN CONCENTRATION (G/DL) BY AUTOMATED 31.3 g/dL Low 32.0-35.0 [facility] Comment on above: Performed By: #### L [id number] #### [facility] ([facility]) [address] [address] Hematocrit (Bld) [Volume fraction] 36.7 % Normal 36.0-48.0 [facility] Comment on above: Performed By: #### L [id number] #### [facility] ([facility]) [address] [place] [address] Hemoglobin (Bld) [Mass/Vol] 11.5 g/dL Low 12.0-15.0 [facility] Comment on above: Performed By: #### L [id number] #### [facility] ([facility]) [address] [place] [address] MCH (RBC) [Entitic mass] 26.9 pg Low 27.0-33.0 [facility] Comment on above: Performed By: #### L [id number] #### [facility] [address] [place] [address] MCV (RBC) [Entitic vol] 85.7 fL Normal 82.0-98.0 [facility] Comment on above: Performed By: #### L [id number] #### [facility] ([facility] [address] [place] [address] PLATELETS (10*3/UL) IN BLOOD AUTOMATED COUNT 243 10*3/uL Normal 150-400 [facility] Comment on above: Performed By: #### L [id number] #### [facility] ([facility] [address] [place] [address] RBC (Bld) [#/Vol] 4.28 10*6/uL Normal 3.80-5.00 [facility] Comment on above: Performed By: #### L [id number] #### [facility] ([facility]) [address] [place] [address] WBC (Bld) [#/Vol] 7.41 10*3/uL Normal 4.00-10.60 [facility] Comment on above: Performed By: #### L [id number] #### [facility] ([facility]) [address] [place] [address] CONSULTon 06-30-2024 CONSULT Cardiology Consult Note Reason for Consult: NSTEMI, transfer from [facility] HPI: Aby Madrigal, a 59 y.o. female patient, is transferred from [facility] for continuity of care. Past medical history includes: HTN History of TIA DMII HLD SURESH Overweight Patient reports that 3 days ago, she woke up in the mid of the night with indigestion, and a feeling fullness, but no pressure like chest pain. She presented to [facility], where she was found to be [...] Value Ventricular Rate 71 Atrial Rate 71 MD Interval 176 QRS DURATION 92 QT Interval 424 QTC CALCULATION(BAZETT) 460 P Hamilton 52 R-Hamilton 19 T Wave Hamilton 164 Impression Normal sinus rhythm Left ventricular [...] Normal sinu (more content not included)... Normal [facility] HPon 06-30-2024 H&P reviewed. The patient was examined and there are no changes to the H&P. 59 y.o. year old female with a PMHx significant for DM2, hypertension presents a direct mission from [facility] with a chief complaint of chest [...] to proceed. Signed, Yris Oakley MD PGY-4 Venue Coordinator Pager: [phone] [facility] POCT GLUCOSE METER UNSOLICIT ED RESULTSon 06-30-2024 Glucose [Mass/Vol] 170 mg/dL High 70-105 [facility] Comment on above: Order Comment: Waive d Testing in the ED is performed under the ED CLIA certificate #[id number]. Result Comment: [email or web address] Performed By: #### L [id number] ####[facility] ([facility])[address] [place] [address] Glucose [Mass/Vol] 129 mg/dL High 70-105 [facility] Comment on above: Order Comment: Waive d Testing in the ED is performed under the ED CLIA certificate #[id number]. Result Comment: [email or web address] Performed By: #### L [id number] ####[facility] ([facility])[address] [facility] [place] [address] Glucose [Mass/Vol] 167 mg/dL High 70-105 [facility] Comment on above: Order Comment: Basel ine aPTT before initiating heparin infusion. Result Comment: [email or web address] Performed By: #### L [id number] #### [facility] ([facility]) [address] [place] [address] TROPONIN Ion 06-30-2024 Troponin I.cardiac [Mass/Vol] 0.07 ng/mL High 0.00-0.04 [facility] Comment on above: Performed By: #### L [id number] #### [facility] ([facility]) [address] [place] [address] Troponin I.cardiac [Mass/Vol] 0.10 ng/mL High 0.00-0.04 [facility] Comment on above: Performed By: #### L [id number] #### [facility] ([facility]) [address] [place] [address] Troponin I.cardiac [Mass/Vol] 0.11 ng/mL Critically high 0.00-0.04 [facility] Comment on above: Result Comment: M-TR OPONIN INITIAL CRITICAL HIGH; RESPUN AND RETESTED Performed By: #### L [id number] #### [facility] ([facility]) [address] [place] [address] 30on 06-29-2024 30 The patient is Moderately Stable - Low risk of patient condition declining or worsening The patient's goals for the shift include COMFORT The clinical goals for the shift include VSS Normal [facility] APTTon 06-29-2024 ACTIVATED PARTIAL THROMBOPLASTIN TIME IN PPP BY COAGULATION ASSAY 34.5 Seconds Normal 25.0-35.0 [facility] Comment on above: Order Comment: Basel ine aPTT before initiating heparin infusion. Result Comment: Clin ical significance of the APTT is questionable in the presence of heparin. Performed By: #### L [id number] #### [facility] ([facility]) [address] [place] [address] B-TYPE NATRIURETIC PEPTIDEon 06-29-2024 Natriuretic peptide B (Bld) [Mass/Vol] 222 pg/mL High 0-100 [facility] Comment on above: Performed By: #### L [id number] #### [facility] ([facility]) [address] [place] [address] CBC WITH AUTO DIFFERENTIALon 06-29-2024 Basophils (Bld) [#/Vol] 0.05 10*3/uL Normal 0.00-0.20 [facility] Comment on above: Performed By: #### L [id number] #### [facility] ([facility]) [address] [place] [address] Basophils/100 WBC (Bld) 0.6 % Normal 0.0-1.0 [facility] Comment on above: Performed By: #### L [id number] #### [facility] [address] [place] [address] Eosinophils (Bld) [#/Vol] 0.18 10*3/uL Normal 0.00-0.50 [facility] Comment on above: Performed By: #### L [id number] #### [facility] ([facility]) [address] [place] [address] Eosinophils/100 WBC (Bld) 2.1 % Normal 0.0-6.0 [facility] Comment on above: Performed By: #### L [id number] #### [facility] ([facility]) [address] [address] Erythrocyte distribution width (RBC) [Ratio] 14.9 % Normal 11.5-15.0 [facility] Comment on above: Performed By: #### L [id number] #### [facility] ([facility]) [address] [address] ERYTHROCYTE MEAN CORPUSCULAR HEMOGLOBIN CONCENTRATION (G/DL) BY AUTOMATED 32.9 g/dL Normal 32.0-35.0 [facility] Comment on above: Performed By: #### L [id number] #### [facility] ([facility]) [address] [place] [address] Hematocrit (Bld) [Volume fraction] 35.9 % Low 36.0-48.0 [facility] Comment on above: Performed By: #### L [id number] #### [facility] ([facility]) [address] [place] [address] Hemoglobin (Bld) [Mass/Vol] 11.8 g/dL Low 12.0-15.0 [facility] Comment on above: Performed By: #### L [id number] #### [facility] ([facility] [address] [place] [address] Immature granulocytes (Bld) [#/Vol] 0.03 10*3/uL Normal 0.00-0.20 [facility] Comment on above: Performed By: #### L [id number] #### [facility] (BE[facility]ER) [address] [place] [address] Immature granulocytes/100 WBC (Bld) 0.3 % Normal 0.0-1.0 [facility] Comment on above: Performed By: #### L [id number] #### [facility] ([facility] [address] [place] [address] Lymphocytes (Bld) [#/Vol] 2.02 10*3/uL Normal 1.20-4.00 [facility] Comment on above: Performed By: #### L [id number] #### [facility] ([facility]) [address] [place] [address] Lymphocytes/100 WBC (Bld) 23.5 % Normal 20.0-45.0 [facility] Comment on above: Performed By: #### L [id number] #### [facility] [facility]) [address] [place] [address] MCH (RBC) [Entitic mass] 27.2 pg Normal 27.0-33.0 [facility] Comment on above: Performed By: #### L [id number] #### [facility] ([facility]) [address] [place] [address] MCV (RBC) [Entitic vol] 82.7 fL Normal 82.0-98.0 [facility] Comment on above: Performed By: #### L [id number] #### [facility] ([facility] [address] [place] [address] Monocytes (Bld) [#/Vol] 0.56 10*3/uL Normal 0.10-1.00 [facility] Comment on above: Performed By: #### L [id number] #### [facility] ([facility] [address] [place] [address] Monocytes/100 WBC (Bld) 6.5 % Normal 5.0-12.0 [facility] Comment on above: Performed By: #### L [id number] #### [facility] ([facility]) [address] [place] [address] Neutrophils (Bld) [#/Vol] 5.74 10*3/uL Normal 1.60-7.60 [facility] Comment on above: Performed By: #### L [id number] #### [facility] ([facility] [address] [place] [address] Neutrophils/100 WBC (Bld) 67.0 % Normal 40.0-72.0 [facility] Comment on above: Performed By: #### L [id number] #### [facility] ([facility]) [address] [place] [address] NRBC (PER 100 WBCS) BY AUTOMATED COUNT 0.0 % Normal 0 [facility] Comment on above: Performed By: #### L [id number] #### [facility] ([facility]) [address] [place] [address] PLATELETS (10*3/UL) IN BLOOD AUTOMATED COUNT 233 10*3/uL Normal 150-400 [facility] Comment on above: Performed By: #### L [id number] #### [facility] ([facility]) [address] [place] [address] RBC (Bld) [#/Vol] 4.34 10*6/uL Normal 3.80-5.00 [facility] Comment on above: Performed By: #### L [id number] #### [facility] ([facility]) [address] [place] [address] WBC (Bld) [#/Vol] 8.58 10*3/uL Normal 4.00-10.60 [facility] Comment on above: Performed By: #### L [id number] #### [facility] ([facility] [address] [place] [address] COMPREHENSIVE METABOLIC PANE Alec 06-29-2024 Albumin [Mass/Vol] 3.8 g/dL Normal 3.5-5.7 [facility] Comment on above: Performed By: #### L [id number] ####[facility] ([facility])[address] [place] [address] ALP [Catalytic activity/Vol] 64 U/L Normal 34-104 [facility] Comment on above: Performed By: #### L [id number] ####[facility] ([facility])[address] [place] [address] ALT [Catalytic activity/Vol] 35 U/L Normal 7-52 [facility] Comment on above: Performed By: #### L [id number] ####[facility] ([facility])[address] [place] [address] Anion gap [Moles/Vol] 12 mmol/L Normal 7-20 [facility] Comment on above: Performed By: #### L [id number] ####[facility] ([facility])[address] [place] [address] AST [Catalytic activity/Vol] 21 U/L Normal 13-39 [facility] Comment on above: Performed By: #### L [id number] ####[facility] ([facility])[address] [place] [address] Bilirubin [Mass/Vol] 0.4 mg/dL Normal 0.3-1.0 [facility] Comment on above: Performed By: #### L [id number] ####[facility] ([facility])[address] [place] [address] Calcium [Mass/Vol] 8.5 mg/dL Low 8.6-10.3 [facility] Comment on above: Performed By: #### L [id number] ####[facility] ([facility])[address] [place] [address] Chloride [Moles/Vol] 112 mmol/L High 98-107 [facility] Comment on above: Performed By: #### L [id number] ####[facility] ([facility])[address] [place] [address] CO2 [Moles/Vol] 22 mmol/L Normal 21-31 [facility] Comment on above: Performed By: #### L [id number] ####[facility] ([facility])[address] [place] [address] Creatinine [Mass/Vol] 0.92 mg/dL Normal 0.60-1.20 [facility] Comment on above: Performed By: #### L [id number] ####[facility] ([facility])[address] [place] [address] GLOMERULAR FILTRATION RATE ML/MIN/1.73 SQ M.PREDICTED 71.3 mL/min/1.73m*2 Normal >60.0 [facility] Comment on above: Result Comment: The [facility]???s estimated glomerular filtration rate (eGFR) will no [...] of individuals. Performed By: #### L [id number] ####[facility] ([facility])[address] [place] [address] Glucose [Mass/Vol] 108 mg/dL High 70-100 [facility] Comment on above: Performed By: #### L [id number] ####[facility] ([facility])[address] [place] [address] Potassium [Moles/Vol] 3.7 mmol/L Normal 3.5-5.1 [facility] Comment on above: Performed By: #### L [id number] ####[facility] ([facility])[address] [place] [address] Protein [Mass/Vol] 6.1 g/dL Normal 6.0-8.3 [facility] Comment on above: Performed By: #### L [id number] ####[facility] ([facility])[address] [facility] [place] [address] Sodium [Moles/Vol] 142 mmol/L Normal 136-145 [facility] Comment on above: Performed By: #### L [id number] ####[facility] ([facility])[address] [place] [address] Urea nitrogen [Mass/Vol] 11 mg/dL Normal 7-25 [facility] Comment on above: Performed By: #### L [id number] ####[facility] ([facility])[address] [place] [address] UREA NITROGEN/CREATININE (MASS RATIO) IN SER/PLAS 12.0 Normal [facility] Comment on above: Performed By: #### L [id number] ####[facility] ([facility])[address] [place] [address] MAGNESIUMon 06-29-2024 Magnesium [Mass/Vol] 1.7 mg/dL Low 1.9-2.7 [facility] Comment on above: Performed By: #### L [id number] #### [facility] ([facility]) [address] [place] [address] PHOSPHORUSon 06-29-2024 Magnesium [Mass/Vol] 2.9 mg/dL Normal 2.5-5.0 [facility] Comment on above: Performed By: #### L [id number] ####[facility] ([facility])[address] [place] [address] PROTIME-INRon 06-29-2024 INR IN PPP BY COAGULATION ASSAY 0.99 Normal 0.90-1.10 [facility] Comment on above: Result Comment: ACCC P [...] 1995;[id number]. Performed By: #### L [id number] #### [facility] ([facility]) [address] [place] [address] PROTHROMBIN TIME (PT) IN PPP BY COAGULATION ASSAY 13.1 Seconds Normal 12.3-14.8 [facility] Comment on above: Performed By: #### L [id number] #### [facility] ([facility]) [address] [place] [address] TROPONIN Ion 06-29-2024 Troponin I.cardiac [Mass/Vol] 0.10 ng/mL High 0.00-0.04 [facility] Comment on above: Performed By: #### L [id number] ####[facility] ([facility])[address] [place] [address] Covid-19 PCR (CVDTB)on 10-24 SARS-CoV-2 (COVID-19) RNA BECK+probe Ql (Unsp spec) Not detected Normal NOT DETECTED [facility] Comment on above: Result Comment: This test is not yet approved or cleared by the [place] FDA. When there are no FDA-approved or cleared tests available, and other criteria are met, FDA can make tests available under an emergency access mechanism called an Emergency Use Authorization (EUA). The EUA for this test is supported by the [place] of Health and Human Service's (HHS's) declaration [...] consistent with SARS-CoV-2. Performed By: #### [facility] #### [facility] [address] [address] [address] Rich Welch VC VENOUS REFLUX NINO LMTon 1 12-02-2021 VC VENOUS REFLUX NINO LMT Patient: ABY MADRIGAL Exam Date: 10/02/2022 : 1965 Gender:F Ordering : DR KENDRA MORAN . 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 Tech Note: Incompetent SFJ and GSV. Patent varicose vein mid/med calf 2.9mm with 0s reflux. Patent varicose vein prox/post calf 3.8mm with 0s reflux. Patent varicose vein dist/med thigh 3.8mm with 2.0s reflux. CONCLUSION: 1. Mild right and [id number] left great saphenous vein venous insufficiency with dilatation 2. Left saphenous popliteal junction reflux 3. Mild left anterior accessory saphenous vein venous insufficiency without dilatation 4. Small bilateral incompetent varicose veins Dictated by: Adelia Lezama MD on 10/02/2022 at 13:36 Approved by: Adelia Lezama MD on 10/02/2022 at 13:52 Normal [facility] ECHOCARDIO M/2D COMPLETEon 1 11-30-2021 ECHOCARDIO M/2D COMPLETE Patient: ABY MADRIGAL Exam Date: 09/30/2022 : 1965 Gender:F Ordering : DR KENDRA MORAN . Admission #: [id number] Family : Order #: [id number] CLICK HERE TO VIEW EXAM ECHOCARDIOGRAM REPORT [...] Spence M.D. on 09/30/2022 at 18:37 Normal [facility] BNPon 09-24-2022 Natriuretic peptide B (Bld) [Mass/Vol] 501.0 pg/mL Normal <=900.0 [facility] Comment on above: Performed By: #### C VDTB #### [facility] [address] [place] [address] Dr. Rich Welch CBC AUTO DIFFon 09-24-2022 BASO # 0.1 103/ul Normal 0.0-0.1 [facility] Comment on above: Performed By: #### C VDTB #### [facility] [address] [place] [address] Dr. Rich Welch Basophils/100 WBC (Bld) 0.8 % Normal 0.2-2.0 [facility] Comment on above: Performed By: #### C VDTBH #### [facility] [address] [place] [address] Dr. Rich Welch EO # 0.3 103/ul Normal 0.0-0.7 [facility] Comment on above: Performed By: #### C VDTBH #### [facility] [address] [place] [address] Dr. Rich Welch Eosinophils/100 WBC (Bld) 3.4 % Normal 0.9-7.0 [facility] Comment on above: Performed By: #### C VDTBH #### [facility] [address] [place] [address] Dr. Rich Welch Erythrocyte distribution width (RBC) [Ratio] 13.3 % Normal 11.0-15.0 [facility] Comment on above: Performed By: #### C VDTBH #### [facility] [address] [place] [address] Dr. Rich Welch Hematocrit (Bld) [Volume fraction] 40.5 % Normal 36.0-48.0 [facility] Comment on above: Performed By: #### C VDTBH #### [facility] [address] [place] [address] Dr. Rich Welch Hemoglobin (Bld) [Mass/Vol] 13.1 g/dL Normal 12.0-16.0 [facility] Comment on above: Performed By: #### C VDTBH #### [facility] [address] [place] [address] Dr. Rich Welch IG # 0.02 10e3/ul Normal 0.00-0.03 [facility] Comment on above: Performed By: #### C VDTBH #### [facility] [address] [place] [address] Dr. Rich Welch IG % 0.3 % Normal 0.0-0.5 [facility] Comment on above: Performed By: #### C VDTBH #### [facility] [address] [place] [address] Dr. Rich Welch LYMPH # 2.7 103/ul Normal 1.2-3.8 [facility] Comment on above: Performed By: #### C VDTBH #### [facility] [address] [place] [address] Dr. Rich Welch Lymphocytes/100 WBC (Bld) 35.4 % Normal 20.5-60.0 [facility] Comment on above: Performed By: #### C VDTBH #### [facility] [address] [place] [address] Dr. Rich Welch MANUAL DIFF REQ NO Normal [facility] Comment on above: Performed By: #### C VDTBH #### [facility] [address] [place] [address] Dr. Rich Welch MCH (RBC) [Entitic mass] 28.2 pg Normal 26.7-34.0 [facility] Comment on above: Performed By: #### C VDTBH #### [facility] [address] [place] [address] Dr. Rich Welch MCHC (RBC) [Mass/Vol] 32.3 g/dL Normal 29.9-35.2 [facility] Comment on above: Performed By: #### C VDTBH #### [facility] [address] [place] [address] Dr. Rich Welch MCV (RBC) [Entitic vol] 87.3 fL Normal 81.0-99.0 [facility] Comment on above: Performed By: #### C VDTBH #### [facility] [address] [place] [address] Dr. Rich Welch MONO # 0.5 103/ul Normal 0.3-0.8 [facility] Comment on above: Performed By: #### C VDTBH #### [facility] [address] [place] [address] Dr. Rich Welch Monocytes/100 WBC (Bld) 6.5 % Normal 1.7-12.0 [facility] Comment on above: Performed By: #### C VDTBH #### [facility] [address] [place] [address] Dr. Rich Welch NEUT # 4.1 103/ul Normal 1.4-6.5 [facility] Comment on above: Performed By: #### C VDTBH #### [facility] [address] [place] [address] Dr. Rich Welch Neutrophils/100 WBC (Bld) 53.6 % Normal 43.0-75.0 [facility] Comment on above: Performed By: #### C VDTBH #### [facility] [address] [place] [address] Dr. Rich Welch Platelet mean volume (Bld) [Entitic vol] 10.3 fL Normal 9.5-13.5 [facility] Comment on above: Performed By: #### C VDTBH #### [facility] [address] [place] [address] Dr. Rich Welch PLT 283 103/ul Normal 150-450 [facility] Comment on above: Performed By: #### C VDTBH #### [facility] [address] [place] [address] Dr. Rich Welch RBC 4.64 106/ul Normal 4.20-5.40 [facility] Comment on above: Performed By: #### C VDTBH #### [facility] [address] [place] [address] Dr. Rich Welch WBC 7.6 103/ul Normal 4.0-11.0 [facility] Comment on above: Performed By: #### C VDTBH #### [facility] [address] [place] [address] Dr. Rich Welch INSULINon 09-24-2022 Insulin 15.1 uIU/mL Normal 2.6-24.9 [facility] Comment on above: Performed By: #### C VDTBH #### [facility] [address] [place] [address] Dr. Rich Welch PROF 14(COMP METB)on 022 Albumin [Mass/Vol] 3.5 g/dL Normal 3.4-5.[address] [facility] Comment on above: Performed By: #### C VDTBH #### [facility] [address] [place] [address] Dr. Rihc Welch Albumin/Globulin [Mass ratio] 1.0 {ratio} Normal [facility] Comment on above: Performed By: #### C VDTBH #### [facility] [address] [place] [address] Dr. Rich Welch ALP [Catalytic activity/Vol] 91 U/L Normal 46-116 [facility] Comment on above: Performed By: #### C VDTBH #### [facility] [address] [place] [address] Dr. Rich Welch ALT [Catalytic activity/Vol] 47 U/L Normal 14-59 [facility] Comment on above: Performed By: #### C VDTBH #### [facility] [address] [place] [address] Dr. Rich Welch Anion gap [Moles/Vol] 11.7 mmol/L Normal [facility] Comment on above: Performed By: #### C VDTBH #### [facility] [address] [place] [address] Dr. Rich Welch AST [Catalytic activity/Vol] 24 U/L Normal 15-37 [facility] Comment on above: Performed By: #### C VDTBH #### [facility] [address] [place] [address] Dr. Rich Welch Bilirubin [Mass/Vol] 0.2 mg/dL Normal 0.2-1.0 [facility] Comment on above: Performed By: #### C VDTBH #### [facility] [address] [place] [address] Dr. Rich Welch Calcium [Mass/Vol] 8.9 mg/dL Normal 8.5-10.[address] [facility] Comment on above: Performed By: #### C VDTBH #### [facility] [address] [place] [address] Dr. Rich Welch Chloride [Moles/Vol] 105 mmol/L Normal 98-107 [facility] Comment on above: Performed By: #### C VDTBH #### [facility] [address] [place] [address] Dr. Rich Welch CO2 [Moles/Vol] 28.1 mmol/L Normal 21.0-32.0 [facility] Comment on above: Performed By: #### C VDTBH #### [facility] [address] [place] [address] Dr. Rich Welch Creatinine [Mass/Vol] 1.13 mg/dL Critically high 0.55-1.02 [facility] Comment on above: Performed By: #### C VDTBH #### [facility] [address] [place] [address] Dr. Rich Welch EGFR-AF [place] 60 mL/min/1.73m2 Normal >=60 [facility] Comment on above: Performed By: #### C VDTBH #### [facility] [address] [place] [address] Dr. Rich Welch EGFR-NON AF [place] 49 mL/min/1.73m2 Critically low >=60 [facility] Comment on above: Performed By: #### C VDTBH #### [facility] [address] [address] [address] Rich Welch Globulin (S) [Mass/Vol] 3.5 g/dL Normal [facility] Comment on above: Performed By: #### C VDTBH #### [facility] [address] [address] [address] Rich Welch Glucose [Mass/Vol] 119 mg/dL Critically high 74-106 [facility] Comment on above: Performed By: #### C VDTBH #### [facility] [address] [place] [address] Dr. Rich Welch Potassium [Moles/Vol] 3.8 mmol/L Normal 3.5-5.1 [facility] Comment on above: Performed By: #### C VDTBH #### [facility] [address] [place] [address] Dr. Rich Welch Protein [Mass/Vol] 7.0 g/dL Normal 6.4-8.2 [facility] Comment on above: Performed By: #### C VDTBH #### [facility] [address] [place] [address] Dr. Rich Welch Sodium [Moles/Vol] 141 mmol/L Normal 136-[address] [facility] Comment on above: Performed By: #### C VDTBH #### [facility] [address] [place] [address] Dr. Rich Welch Urea nitrogen [Mass/Vol] 16.0 mg/dL Normal 7.0-18.0 [facility] Comment on above: Performed By: #### C VDTBH #### [facility] [address] [place] [address] Dr. Rich Welch Urea nitrogen/Creatinine [Mass ratio] 14.2 mg/mg Normal [facility] Comment on above: Performed By: #### C VDTBH #### [facility] [address] [address] [address] Rich Welch TROPONIN, HIGH SENSITIVITYon 09-24-2022 HSTROP 10.6 pg/mL Normal 4.0-51.3 [facility] Comment on above: Result Comment: CUT- OFF POINTS HAVE BEEN ESTABLISHED BASED ON THE FOURTH UNIVERSAL DEFINITIONS OF MYOCARDIAL INFARCTION. THE UPPER REFERENCE LIMIT (URL) OF TROPONIN, DEFINED THE 99TH PERCENTILE OF cTnI DISTRIBUTION IN A REFERENCE POPULATION, HAS BEEN CONFIRMED THE DECISION THRESHOLD FOR [place] DIAGNOSIS. Performed By: #### [facility] #### [facility] [address] [place] [address] Dr. Rich Welch XR CHEST 1 Von [...] UMM HUMPHRIES Date: 2022-09-24 04:08 Normal [facility] CBC AUTO DIFFon 09-23-2022 BASO # 0.1 103/ul Normal 0.0-0.1 [facility] Comment on above: Performed By: #### C BC #### [facility] [address] [place] [address] Dr. Rich Welch Basophils/100 WBC (Bld) 0.8 % Normal 0.2-2.0 [facility] Comment on above: Performed By: #### C BC #### [facility] [address] [address] [address] Rich Welch EO # 0.2 103/ul Normal 0.0-0.7 [facility] Comment on above: Performed By: #### C BC #### [facility] [address] [place] [address] Dr. Rich Welch Eosinophils/100 WBC (Bld) 3.5 % Normal 0.9-7.0 [facility] Comment on above: Performed By: #### C BC #### [facility] [address] [place] [address] Dr. Rich Welch Erythrocyte distribution width (RBC) [Ratio] 13.4 % Normal 11.0-15.0 [facility] Comment on above: Performed By: #### C BC #### [facility] [address] [place] [address] Dr. Rich Welch Hematocrit (Bld) [Volume fraction] 42.3 % Normal 36.0-48.0 [facility] Comment on above: Performed By: #### C BC #### [facility] [address] [place] [address] Dr. Rich Welch Hemoglobin (Bld) [Mass/Vol] 13.4 g/dL Normal 12.0-16.0 [facility] Comment on above: Performed By: #### C BC #### [facility] [address] [place] [address] Dr. Rich Welch IG # 0.03 10e3/ul Normal 0.00-0.03 [facility] Comment on above: Performed By: #### C BC #### [facility] [address] [place] [address] Dr. Rich Welch IG % 0.5 % Normal 0.0-0.5 [facility] Comment on above: Performed By: #### C BC #### [facility] [address] [place] [address] Dr. Rich Welch LYMPH # 2.9 103/ul Normal 1.2-3.8 [facility] Comment on above: Performed By: #### C BC #### [facility] [address] [place] [address] Dr. Rich Welch Lymphocytes/100 WBC (Bld) 44.0 % Normal 20.5-60.0 [facility] Comment on above: Performed By: #### C BC #### [facility] [address] [place] [address] Dr. Rich Welch MANUAL DIFF REQ NO Normal [facility] Comment on above: Performed By: #### C BC #### [facility] [address] [place] [address] Dr. Rich Wlech MCH (RBC) [Entitic mass] 28.4 pg Normal 26.7-34.0 [facility] Comment on above: Performed By: #### C BC #### [facility] [address] [place] [address] Dr. Rich Welch MCHC (RBC) [Mass/Vol] 31.7 g/dL Normal 29.9-35.2 [facility] Comment on above: Performed By: #### C BC #### [facility] [address] [place] [address] Dr. Rich Welch MCV (RBC) [Entitic vol] 89.6 fL Normal 81.0-99.0 [facility] Comment on above: Performed By: #### C BC #### [facility] [address] [place] [address] Dr. Rich Welch MONO # 0.4 103/ul Normal 0.3-0.8 [facility] Comment on above: Performed By: #### C BC #### [facility] [address] [place] [address] Dr. Rich Welch Monocytes/100 WBC (Bld) 6.6 % Normal 1.7-12.0 [facility] Comment on above: Performed By: #### C BC #### [facility] [address] [place] [address] Dr. Rich Welch NEUT # 2.9 103/ul Normal 1.4-6.5 [facility] Comment on above: Performed By: #### C BC #### [facility] [address] [place] [address] Dr. Rich Welch Neutrophils/100 WBC (Bld) 44.6 % Normal 43.0-75.0 [facility] Comment on above: Performed By: #### C BC #### [facility] [address] [place] [address] Dr. Rich Welch Platelet mean volume (Bld) [Entitic vol] 11.0 fL Normal 9.5-13.5 [facility] Comment on above: Performed By: #### C BC #### [facility] [address] [place] [address] Dr. Rich Welch PLT 272 103/ul Normal 150-450 [facility] Comment on above: Performed By: #### C BC #### [facility] [address] [place] [address] Dr. Rich Welch RBC 4.72 106/ul Normal 4.20-5.40 [facility] Comment on above: Performed By: #### C BC #### [facility] [address] [place] [address] Dr. Rich Welch WBC 6.5 103/ul Normal 4.0-11.0 [facility] Comment on above: Performed By: #### C BC #### [facility] [address] [place] [address] Dr. Rich Welch FREE THYROXINE INDEX T7on FTI 2.16 Normal 1.30-4.50 [facility] Comment on above: Performed By: #### L IPID, TSH, T7, CMP #### [facility] [address] [place] [address] Dr. Rich Welch T3U 30.0 % Normal 30.0-39.0 [facility] Comment on above: Performed By: #### L IPID, TSH, T7, CMP #### [facility] [address] [place] [address] Dr. Rich Welch T4 [Mass/Vol] 7.20 ug/dL Normal 4.80-13.90 [facility] Comment on above: Performed By: #### L IPID, TSH, T7, CMP #### [facility] [address] [place] [address] Dr. Rich Welch GLYCOHEMOGLOBIN A1Con 2021 ADA RECOMMENDATION SEE BELOW Normal [facility] Comment on above: Result Comment: ADA RECOMMENDED LIMIT 4.0 - 6.0 ADA THERAPEUTIC TARGET < 7.0 ACTION SUGGESTED > 7.0 Performed By: #### A 1C #### [facility] [address] [place] [address] Dr. Rich Welch Glucose [Mass/Vol] 128 mg/dL Normal [facility] Comment on above: Performed By: #### A 1C #### [facility] [address] [address] [address] Rich Welch HbA1c (Bld) [Mass fraction] 6.1 % Normal 4.5-6.2 [facility] Comment on above: Performed By: #### A 1C #### [facility] [address] [address] [address] Rich Welch IRONon 09-23-2022 Iron [Mass/Vol] 64.0 ug/dL Normal 50.0-170.0 [facility] Comment on above: Performed By: #### C VDTB #### [facility] [address] [place] [address] Dr. Rich Welch LIPID PROFILEon 09-23-2022 CHOL-HDL RATIO NORM SEE BELOW Normal [facility] Comment on above: Result Comment: 3.3 - 4.4 LOW RISK 4.4 - 7.1 AVERAGE RISK 7.1 - 11.0 MODERATE RISK >11.0 HIGH RISK Performed By: #### L IPID, TSH, T7, CMP #### [facility] [address] [address] [address] Rich Welch Cholesterol [Mass/Vol] 237 mg/dL Critically high <=200 [facility] Comment on above: Performed By: #### L IPID, TSH, T7, CMP #### [facility] [address] [address] [address] Rich Welch Cholesterol in HDL [Mass/Vol] 44 mg/dL Normal 40-60 [facility] Comment on above: Performed By: #### L IPID, TSH, T7, CMP #### [facility] [address] [address] [address] Rich Welch Cholesterol in LDL [Mass/Vol] 172.2 mg/dL Normal [facility] Comment on above: Performed By: #### L IPID, TSH, T7, CMP #### [facility] [address] [address] [address] Rich Welch Cholesterol.total/C holesterol in HDL [Mass ratio] 5.4 {ratio} Normal [facility] Comment on above: Performed By: #### L IPID, TSH, T7, CMP #### [facility] [address] [address] [address] Rich Welch HDL NORMAL > or = 60 mg/dl - LO W CARDIOVASCULAR RISK <40 mg/dl - HIGH CARDIOVASCULAR RISK Normal [facility] Comment on above: Performed By: #### L IPID, TSH, T7, CMP #### [facility] [address] [address] [address] Rich Welch LDL CALC NORMAL SEE BELOW Normal [facility] Comment on above: Result Comment: <100 mg/dl OPTIMAL 100 - 129 mg/dl NEAR OR ABOVE OPTIMAL 130 - 159 mg/dl BORDERLINE HIGH 160 - 189 mg/dl HIGH >190 mg/dl VERY HIGH Performed By: #### L IPID, TSH, T7, CMP #### [facility] [address] [address] [address] Rich Welch Triglyceride [Mass/Vol] 104 mg/dL Normal <=150 [facility] Comment on above: Performed By: #### L IPID, TSH, T7, CMP #### [facility] [address] [address] [address] Rich Welch VLDL CALC 20.8 mg/dL Normal [facility] Comment on above: Performed By: #### L IPID, TSH, T7, CMP #### [facility] [address] [address] [address] Rich Welch PROF 14(COMP METB)on 022 Albumin [Mass/Vol] 3.5 g/dL Normal 3.4-5.[address] [facility] Comment on above: Performed By: #### L IPID, TSH, T7, CMP #### [facility] [address] [address] [address] Rich Welch Albumin/Globulin [Mass ratio] 0.9 {ratio} Normal [facility] Comment on above: Performed By: #### L IPID, TSH, T7, CMP #### [facility] [address] [place] [address] Dr. Rich Welch ALP [Catalytic activity/Vol] 93 U/L Normal 46-116 [facility] Comment on above: Performed By: #### L IPID, TSH, T7, CMP #### [facility] [address] [address] [address] Rich Welch ALT [Catalytic activity/Vol] 44 U/L Normal 14-59 [facility] Comment on above: Performed By: #### L IPID, TSH, T7, CMP #### [facility] [address] [place] [address] Dr. Rich Welch Anion gap [Moles/Vol] 8.5 mmol/L Normal [facility] Comment on above: Performed By: #### L IPID, TSH, T7, CMP #### [facility] [address] [place] [address] Dr. Rich Welch AST [Catalytic activity/Vol] 26 U/L Normal 15-37 [facility] Comment on above: Performed By: #### L IPID, TSH, T7, CMP #### [facility] [address] [place] [address] Dr. Rich Welch Bilirubin [Mass/Vol] 0.3 mg/dL Normal 0.2-1.0 [facility] Comment on above: Performed By: #### L IPID, TSH, T7, CMP #### [facility] [address] [place] [address] Dr. Rich Welch Calcium [Mass/Vol] 9.0 mg/dL Normal 8.5-10.[address] [facility] Comment on above: Performed By: #### L IPID, TSH, T7, CMP #### [facility] [address] [place] [address] Dr. Rich Welch Chloride [Moles/Vol] 106 mmol/L Normal 98-107 [facility] Comment on above: Performed By: #### L IPID, TSH, T7, CMP #### [facility] [address] [place] [address] Dr. Rich Welch CO2 [Moles/Vol] 31.0 mmol/L Normal 21.0-32.0 [facility] Comment on above: Performed By: #### L IPID, TSH, T7, CMP #### [facility] [address] [address] [address] Rich Welch Creatinine [Mass/Vol] 1.11 mg/dL Critically high 0.55-1.02 [facility] Comment on above: Performed By: #### L IPID, TSH, T7, CMP #### [facility] [address] [place] [address] Dr. Rich Welch EGFR-AF [place] ISLANDER >60 Normal >=60 [facility] Comment on above: Performed By: #### L IPID, TSH, T7, CMP #### [facility] [address] [place] [address] Dr. Rich Welch EGFR-NON AF [place]ER 50 mL/min/1.73m2 Critically low >=60 [facility] Comment on above: Performed By: #### L IPID, TSH, T7, CMP #### [facility] [address] [place] [address] Dr. Rich Welch Globulin (S) [Mass/Vol] 3.7 g/dL Normal [facility] Comment on above: Performed By: #### L IPID, TSH, T7, CMP #### [facility] [address] [place] [address] Dr. Rich Welch Glucose [Mass/Vol] 121 mg/dL Critically high 74-106 [facility] Comment on above: Performed By: #### L IPID, TSH, T7, CMP #### [facility] [address] [place] [address] Dr. Rich Welch Potassium [Moles/Vol] 4.5 mmol/L Normal 3.5-5.1 [facility] Comment on above: Performed By: #### L IPID, TSH, T7, CMP #### [facility] [address] [place] [address] Dr. Rich Welch Protein [Mass/Vol] 7.2 g/dL Normal 6.4-8.[address] [facility] Comment on above: Performed By: #### L IPID, TSH, T7, CMP #### [facility] [address] [address] [address] Rich Welch Sodium [Moles/Vol] 141 mmol/L Normal 136-145 [facility] Comment on above: Performed By: #### L IPID, TSH, T7, CMP #### [facility] [address] [address] [address] Rich Welch Urea nitrogen [Mass/Vol] 16.0 mg/dL Normal 7.0-18.0 [facility] Comment on above: Performed By: #### L IPID, TSH, T7, CMP #### [facility] [address] [address] [address] Rich Welch Urea nitrogen/Creatinine [Mass ratio] 14.4 mg/mg Normal [facility] Comment on above: Performed By: #### L IPID, TSH, T7, CMP #### [facility] [address] [address] [address] Rich Welch TSHon 09-23-2022 TSH 3.915 uIU/mL Critically high 0.358-3.740 [facility] Comment on above: Performed By: #### L IPID, TSH, T7, CMP #### [facility] [address] [address] [address] Rich Welch Vital Signs Date Time Vital Sign Value Performing Clinician Deidre gagnon 06-01-2025 12:58-0400 Body height 162.6 cm Afsaneh Jacome DATA SUPPORT ANALYST-PENSIONS RETIREMENT PLAN SPECIALIST Work Phone: [facility] 06-01-2025 12:58-0400 Body mass index (BMI) [Ratio] 33.27 kg/m2 Afsaneh Jacome DATA SUPPORT ANALYST-PENSIONS RETIREMENT PLAN SPECIALIST Work Phone: [facility] 06-01-2025 12:58-0400 Body weight 87.91 kg Afsaneh Jacome DATA SUPPORT ANALYST-PENSIONS RETIREMENT PLAN SPECIALIST Work Phone: [facility] 06-01-2025 12:58-0400 Diastolic blood pressure 78 mm[Hg] Afsaneh Jacome DATA SUPPORT ANALYST-PENSIONS RETIREMENT PLAN SPECIALIST Work Phone: [facility] 06-01-2025 12:58-0400 Systolic blood pressure 130 mm[Hg] Afsaneh Jacome DATA SUPPORT ANALYST-PENSIONS RETIREMENT PLAN SPECIALIST Work Phone: [facility] 03-03-2025 11:02-0400 Body height 160.02 cm [facility] 03-03-2025 11:02-0400 Body mass index (BMI) [Ratio] 35.6 kg/m2 [facility] 03-03-2025 11:02-0400 Body temperature 97.8 [degF] [facility] 03-03-2025 11:02-0400 Body weight 91.34 kg [facility] 03-03-2025 11:02-0400 Diastolic blood pressure 69 mm[Hg] [facility] 03-03-2025 11:02-0400 Heart rate 82 /min [facility] 03-03-2025 11:02-0400 Respiratory rate 18 /min [facility] 03-03-2025 11:02-0400 SaO2% (BldA) [Mass fraction] 96 % [facility] 03-03-2025 11:02-0400 Systolic blood pressure 108 mm[Hg] [facility] 03-02-2025 09:18-0400 Body height 162.6 cm Farzana Ely DATA SUPPORT ANALYST-PENSIONS RETIREMENT PLAN SPECIALIST Work Phone: [facility] 03-02-2025 09:18-0400 Body mass index (BMI) [Ratio] 34.81 kg/m2 Farzana Ely DATA SUPPORT ANALYST-PENSIONS RETIREMENT PLAN SPECIALIST Work Phone: [facility] 03-02-2025 09:18-0400 Body weight 91.99 kg Farzana Ely DATA SUPPORT ANALYST-PENSIONS RETIREMENT PLAN SPECIALIST Work Phone: [facility] 03-02-2025 09:18-0400 Diastolic blood pressure 68 mm[Hg] Farzana Ely DATA SUPPORT ANALYST-PENSIONS RETIREMENT PLAN SPECIALIST Work Phone: [facility] 03-02-2025 09:18-0400 Systolic blood pressure 118 mm[Hg] Farzana Ely DATA SUPPORT ANALYST-PENSIONS RETIREMENT PLAN SPECIALIST Work Phone: [facility] 10-06-2022 15:36-0500 Blood Pressure Location Umm JACQUESMami [facility] 10-06-2022 15:36-0500 Diastolic blood pressure 86 mm[Hg] Umm JACQUESL [facility] [place] 10-06-2022 15:36-0500 Heart rate 72 /min Umm NILL [facility] [place] 10-06-2022 15:36-0500 Respiratory rate 16 /min Umm JACQUESL [facility] [place] 10-06-2022 15:36-0500 Systolic blood pressure 126 mm[Hg] Umm JACQUESL [facility] [place] Encounters Encounter Date Encounter Type Care Provider Facility Start: 08-08-2025 ambulatory Umm LANDON Facility :[facility] Start: 06-25-2025 End: 06-25-2025 ambulatory [facility] Start: 06-08-2025 Evaluation and manag ement of inpatient [facility] Start: 06-08-2025 Evaluation and manag ement of inpatient JESUS ASH [facility] Start: 06-07-2025 End: 06-08-2025 Evaluation and management of inpatient LORENZO Dugan CORTNEY [facility] Start: 06-01-2025 End: 06-01-2025 Patient encounter procedure Afsaneh Jacome DATA SUPPORT ANALYST-PENSIONS RETIREMENT PLAN SPECIALIST Work Phone: [facility] [employer] [facility] Work Phone: Start: 06-01-2025 End: 06-01-2025 Periodic preventive med est patient 40-64yrs Afsaneh Jacome DATA SUPPORT ANALYST-PENSIONS RETIREMENT PLAN SPECIALIST Work Phone: [facility] Comment on above: Well woman exam with routine gynecological exam (Primary Dx) Start: 06-01-2025 End: 06-01-2025 ambulatory AFSANEH JACOME [facility] Start: 05-21-2025 End: 05-21-2025 ambulatory Kendra Moran MD Work Phone: [facility] Work Phone: Start: 05-21-2025 End: 05-21-2025 Patient encounter procedure Elie Jackson DO [facility] Work Phone: Start: 05-21-2025 End: 05-21-2025 [facility] Start: 05-21-2025 End: 05-21-2025 ambulatory Kendra Moran MD Work Phone: [facility] Work Phone: Start: 05-14-2025 End: 05-14-2025 ambulatory [facility] Start: 04-23-2025 End: 04-23-2025 ambulatory [facility] Start: 04-10-2025 End: 04-10-2025 ambulatory [facility] Start: 03-03-2025 End: 03-03-2025 ambulatory [facility] Work Phone: Start: 03-03-2025 End: 03-03-2025 Patient encounter procedure [facility] Work Phone: Start: 03-02-2025 End: 03-02-2025 ambulatory FARZANAZOEY ELY [facility] Start: 03-02-2025 End: 03-02-2025 Office outpatient visit 15 minutes Farzana Ely DATA SUPPORT ANALYST-PENSIONS RETIREMENT PLAN SPECIALIST Work Phone: [facility] Comment on above: Genitourinary syndro me of menopause (Primary Dx); PCB (post coital bleeding) Start: 02-26-2025 End: 02-26-2025 ambulatory [facility] Start: 02-07-2025 End: 02-07-[address] [facility] Start: 01-09-2025 End: 01-09-2025 ambulatory [facility] Start: 01-02-2025 End: 01-02-2025 ambulatory [facility] Start: 10-26-2024 End: 10-26-[address] [facility] Start: 10-03-2024 End: 10-03-2024 ambulatory [facility] Start: 09-04-2024 End: 09-04-2024 [facility] Start: 08-29-2024 End: 08-29-2024 ambulatory [facility] Start: 08-04-2024 End: 08-04-[address] [facility] Start: 07-20-[address] [facility] Start: 07-20-2024 ambulatory [facility] Start: 07-18-2024 ambulatory [facility] Start: 07-18-2024 End: 07-18-2024 Emergency department patient visit HERMINIA JULIAN [facility] Start: 07-18-2024 End: 07-18-2024 ambulatory [facility] Start: 07-11-2024 Evaluation and manag ement of inpatient [facility] Start: 07-11-2024 Emergency department patient visit FEDERICA JACOBSON [facility] Start: 07-11-2024 End: 07-12-2024 Evaluation and management of inpatient JOSE BETANCUR [facility] Start: 07-10-2024 End: 07-10-2024 [facility] Start: 06-30-2024 Evaluation and manag ement of inpatient [facility] Start: 06-30-2024 Evaluation and manag ement of inpatient [facility] Start: 06-29-2024 End: 07-01-2024 Evaluation and management of inpatient KENDRA HOY [facility] Start: 11-26-2022 Encounter for preprocedural laboratory examination DR UMM LANDON . [facility] Start: 11-25-2022 End: 11-25-[address] UMM LANDON . Facility:[facility] Start: 11-20-2022 End: 11-21-[address] UMM LANDON . Facility:[facility] Start: 11-20-2022 End: 11-21-2022 Encounter for preprocedural laboratory examination DR UMM LANDON . Facility:[facility] Start: 10-06-2022 End: 10-06-2022 Patient encounter procedure Umm LANDON [facility] Start: 10-02-2022 End: 10-03-[address] KENDRA MORAN . Facility:[facility] Start: 09-30-2022 End: 10-01-[address] KENDRA MORAN . Facility:[facility] Start: 09-28-2022 Encounter for genera l adult medical examination without abnormal findings DR KENDRA MORAN . [facility] Start: 09-24-2022 End: 09-24-[address] [...] 06-01-2026 Adult BMI Screening Adult BMI Screening [facility] Start: 06-01-2026 Tobacco Screening Tobacco Screening [facility] Start: 03-02-2026 Adult BMI Screening Adult BMI Screening [facility] Start: 03-02-2026 Tobacco Screening Tobacco Screening [facility] Start: 07-23-2025 Influenza vaccination Influenza Vaccine [facility] Start: 06-01-2025 End: 06-01-2025 Patient encounter procedure 06/01/2025 1:00 PM EDT Office Visit [facility] [address] [place] [id number] Afsaneh Jacome, DATA SUPPORT ANALYST-PENSIONS RETIREMENT PLAN SPECIALIST [address] [place], [place] [id number] [facility] Start: 05-21-2025 X-ray of left knee, four views XR knee LT 4V* [facility] Start: 05-21-2025 X-ray of right knee, two views XR knee RT 2V [facility] Start: 05-21-2025 XR Knee - left 4 Views [facility] Start: 05-21-2025 XR Knee - right 2 Views [facility] Start: 07-23-2024 COVID-19 Vaccine ( season) COVID-19 Vaccine ( season) [facility] Start: 2014 Administration of varicella zoster vaccine Zoster (Shingles) Vaccine (1 of 2) [facility] Start: 1983 DTaP,Tdap and Td Vaccines (1 - Tdap) DTaP,Tdap and Td Vaccines (1 - Tdap) [facility] Start: 1982 Adult BMI Follow Up Plan Adult BMI Follow Up Plan [facility] Start: 1976 Depression Screening Depression Screening [facility] Immunizations Immunization Date Immunization Notes Care Provider Fa cility 11-07-2021 influenza virus vaccine, unspecified formulation Farzana Marisol DATA SUPPORT ANALYST-PENSIONS RETIREMENT PLAN SPECIALIST Work Phone: [facility] 04-14-2021 SARS-CoV-2 (COVID-19 ) mRNA BNT-162b2 vax Umm NILL [facility] [place] 03-11-2021 SARS-CoV-2 (COVID-19 ) mRNA BNT-162b2 vax Umm NILL [facility] [place] NEGATED: Highlighted row has not occurred!10-07-2021 influenza, injectable, quadrivalent, preservative free [facility] Payers Date Payer Category Payer Self-pay 2022 Medicaid [id number] 2022 Medicaid [id number] 2019 Private Health Insurance [id number] 2016 Unknown [id number] 1964 Unknown [id number] 2.16.84 [id number] 1964 Unknown [id number] 2.16.84 [id number] 1964 Unknown [id number] 2.16.84 [id number] 1964 Unknown [id number] 2.16.84 [id number] 1964 Unknown [id number] 2.16.84 [id number] 1964 Unknown [id number] 2.16.84 [id number] 1964 Unknown [id number] 2.16.84 [id number] 1964 Unknown [id number] 2.16. [id number] 1964 Unknown [id number] 2.16. [id number] 1964 Unknown [id number] 2.16. [id number] 1964 Unknown [id number] 2.16.8 [id number] 1964 Unknown [id number] 2.16.8 [id number] 1964 Unknown [id number] 2.16.8 [id number] 1959 Self-pay [id number] 1959 Unknown [id number] Unknown [id number] 2.16.8 [id number] Social History Date Type Detail Facility Start: 10-06-2022 End: 03-02-2025 Tobacco smoking status Ex-smoker (finding) [facility] Tobacco smoking status Never [facility] [place] Start: 01-02-2021 End: 03-02-2025 Sex Assigned At Female [place] [facility] Start: 10-07-2021 History of tobacco use Current smoke r [facility] History of tobacco use Cigarette Smoker P [facility] Start: 01-02-2021 End: 03-02-2025 Cigarettes smoked current (pack per day) - Reported 1 [facility] Start: 03-02-2025 Tobacco use and exposure Smokeless tobacco non-user [facility] Start: 03-02-2025 End: 06-01-2025 Alcoholic beverage intake Ex-drinker (finding) [facility] Start: 1965 Sex assigned at Not on file P AXON [facility] Start: 06-27-2015 End: 03-03-2025 Sex Female (finding) [facility] Start: 1965 Sex Assigned At Female F [facility] Start: 10-07-2021 Tobacco smoking stat us FLIS Smokes tobacco daily (finding) [facility] Functional Status Date Assessment Result Facility 10-06-2022 Functional Status N/A [facility] Clinical Notes 11-25-2022 to 06-25-2025 Afsaneh Jacome, DATA SUPPORT ANALYST-PENSIONS RETIREMENT PLAN SPECIALIST - 06/01/2025 1:00 PM EDT Note Date & Type Note Facility 06-25-2025 Note [facility] Subjective Aby Madrigal is a [...] infarction) (CMS/HCC) Hypokalemia Coronary artery disease involving wiyot coronary artery of wiyot heart without angina pectoris Depression, major, severe [...] on 01/31/2025 she was evaluated at the [facility] because of chest pain. Workup was [...] are negative. Objective (more content not included)... [facility] 06-08-2025 Note Attestation with edits by Bijan [...] personal documentation from me. Bijan Licea MD, [facility]IN [facility] Cardiology Progress Note Subjective Subjective: Aby Madrigal is a 59 y.o. female Patient transferred to [facility] from [facility]. She presented to outside hospital with [...] Value Ventricular Rate 53 Atrial Rate 53 MD Interval 164 QRS DURATION 90 QT Interval 432 QTC CALCULATION(BAZETT) 405 P Hamilton 41 R-Hamilton -5 T Wave Hamilton 97 Impression Sinus bradycardia Left ventricular hypertrophy ( R in aVL , Robles product ) with Repolarization Abnormality Inferior infarct [...] Results Transthoracic echo (TTE) complete 1 [facility] Heart Station [address] [phone] (fax) Echocardiogram-[facility] Name: ABY MADRIGAL Study Date: 06/08/2025 08:50 AM B/P: 64 mmHg/197 mmHg HR: 49 bpm Date of : 1965 [place] [facility] [facility] Height: 64 in. Age: 59 [...] function is hyperdy (more content not included)... [facility] 06-08-2025 Note Hospital Medicine Discharge Summary Final Discharge Diagnosis: Atypical chest pain Positive stress test Coronary artery disease S/p L cardiac catheterization 06/07 Status post RCA stent placement 06/07 Hypertrophic septum Hyperaldosteronism Essential hypertension Sleep apnea Obesity class I, BMI 33.89 Admission Diagnosis: NSTEMI (non-ST elevated myocardial infarction) (CMS/[facility]) [I21.4] Hospital course: Ms. Aby Madrigal is an 59 y.o. female admitted as a transfer from [facility] where she presented with 1 day history of intermittent chest pain anterior chest nonradiating no associated diaphoresis nausea or vomiting dyspnea.. Patient said that she had a stress test done a day back and was told it to be abnormal and per ER physician at [place] the post exercise test showed ST changes [...] religiously or that it could cause an NV due to stent rethrombosis. Patient is discharged [...] Center 06/25/2025 3:30 PM Gomez Spence MD [facility] 07/24/2025 1:00 PM Feng Christie MD [facility] Your medication list CHANGE how you take [...] Medications These medications were sent to [facility] - [place], [place] - [address], [facility] [address] aspirin 81 mg EC tablet carvedilol 12.5 [...] mmol/L 111* 1 (more content not included)... [facility] 06-07-2025 Note Patient: Aby antony Procedure Information Date/Time: 06/07/25 1255 Procedure: Coronary angiography (Bilateral) Location: [facility] BILINGUAL CUSTOMER SERVICE SPECIALIST 2 BIPLANE / [facility] (Cath) Providers: Omar Cotto [...] discussed with patient who. Additional Equipment Requests [facility] 06-07-2025 Note Optimize antihyperte nsives CODE STATUS full code [facility] 06-07-2025 Note - Continue protonix [facility] 06-07-2025 Note - Pain control - blood [...] gradients up to 34 mmHg w/ valsalva [facility] 06-07-2025 Note - Continue Aldactone - December of this year: Cortisol: 3.6 and Aldosterone: 7.3 [facility] 06-07-2025 Note - Continue BG checks - Continue SSI while hospitalized - Continue Farxiga - Consider obtaining A1c [facility] 06-07-2025 Note As the teaching angeles garner, [...] and stent was placed. Jesus Welch [facility] Daily Progress Note - 06/07/2025 10:02 AM; Room: [address] [place] [address] Admission: 06/07/2025 2:55 AM; Length of stay: 0 days THE HOSPITALIST TEAM PREFERS TO USE BitGravity CHAT FOR NON-URGENT COMMUNICATION 7AM-7PM. IF I DO NOT RESPOND WITHIN 20 MINUTES OR URGENT MATTERS, PLEASE CALL THROUGH THE DIRECTOR OF MEDICAL STAFF SERVICES. FROM 7PM-7AM, PLEASE PAGE [phone](COVR). Code Status: Full Code Barriers to Discharge: [...] go to the hospital. She went to [facility] and was transferred to [place]. She is anxious to see the fruit coordinator, she has seen Dr. Spence in the [...] & Plan NSTEMI (non-ST elevated myocardial infarction) ([facility]) - Pain control - blood pressure control: [...] complication, without long-term current use of insulin ([facility]) - Continue BG checks - Continue SSI [...] Lab Results Com (more content not included)... [facility] 06-07-2025 Note As above [facility] 06-07-2025 Note Pain control blood p ressure control cycle troponin continue aspirin Plavix statin currently on heparin cardiology to see patient [facility] 06-07-2025 Note Insulin Farxiga blood sugar [facility] 06-07-2025 Note PPI [facility] 06-07-2025 Note Optimize antihyperte nsives CODE STATUS full code [facility] 06-07-2025 Note Hospital Medicine History and Physical 06/07/2025 4:01 AM THE HOSPITALIST TEAM PREFERS TO USE WIB FOR NON-URGENT COMMUNICATION 7AM-7PM. IF I DO NOT RESPOND WITHIN 20 MINUTES OR URGENT MATTERS, PLEASE CALL THROUGH THE DIRECTOR OF MEDICAL STAFF SERVICES. FROM 7PM-7AM, PLEASE PAGE [phone](COVR). Chief Complaint No chief complaint on file. History of Present Illness Aby Madrigal is an 59 y.o. female admitted as a transfer from [facility] where she presented with 1 day history of intermittent chest pain anterior chest nonradiating no associated diaphoresis nausea or vomiting dyspnea.. Patient said that she had a stress test done a day back and was told it to be abnormal and per ER physician at [place] the post exercise test showed ST changes [...] & Plan NSTEMI (non-ST elevated myocardial infarction) ([facility]) Pain control blood pressure control cycle troponin continue aspirin Plavix statin currently on heparin cardiology to see patient Gastroesophageal reflux disease without esophagitis PPI Type 2 diabetes mellitus without complication, without long-term current use of insulin ([facility]) Insulin Farxiga blood sugar Primary aldosteronism As [...] this hospital stay by a member of [facility]. Past Medical History Medical History[1] Past [...] Social Drivers o (more content not included)... [facility] 06-01-2025 History of Present illness Narrative Aby Madrigal is a pleasant 59 y.o. 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 Hysterectomy: yes - [...] yes Last mammogram: 2 years ago at [facility], Dr. Moran orders them Dexa [...] provided. All questions answered. 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 ELVIN Singletary 06/01/25 1329 documented in this encounter [facility] 05-14-2025 Note [place] Cardiology - [facility] Subjective Aby Madrigal is a 59 y.o. year old female patient being seen for a follow up s/p [facility] ER visit. Patient states she [...] infarction) (CMS/HCC) Hypokalemia Coronary artery disease involving wiyot coronary artery of wiyot heart without angina pectoris Depression, major, severe [...] on 01/31/2025 she was evaluated at the [facility] because of chest pain. Workup was [...] and (more content not included)... [facility] 04-23-2025 Note [place] Cardiology - [facility] Subjective Aby Madrigal is a [...] infarction) (CMS/HCC) Hypokalemia Coronary artery disease involving wiyot coronary artery of wiyot heart without angina pectoris Depression, major, severe [...] on 01/31/2025 she was evaluated at the [facility] because of chest pain. Workup was [...] Chest: (more content not included)... [facility] 04-10-2025 Note REASON FOR VISIT + H [...] metoprolol - Jun 2019 CT A/P in [place], [place] performed for abd pain, incidentally detected [...] [place] (more content not included)... [facility] 03-03-2025 Evaluation note Diagnosis Onset Date Resolution Viral URI acute March 03 10:35am Strain of left knee acute May 21, 2025 2:00pm [facility] Work Phone: 1(699) 137-924204-11-2025 History of Present illness Narrative* Farzana Ely, DIONNE-PENSIONS RETIREMENT PLAN SPECIALIST - 03/02/2025 8:45 AM EDT Aby Madrigal [...] Anxiety GERD (gastroesophageal reflux disease) Heart attack ([facility]) 06/29/2024 Hypertension MEDS Current Outpatient Medications Medication [...] 03/02/25 1132 documented in this encounterSelect [facility]ullCable-Sense [id number] Instructions* Patient Instructions* ELVIN Ramos - 03/02/2025 [...] and labia. documented in this encounterNorth Country HospitalFluency [id number] NoteUT Cardiology [facility] Subjective Aby Madrigal is a 59 y.o. [...] infarction) (CMS/HCC) Hypokalemia Coronary artery disease involving wiyot coronary artery of wiyot heart without angina pectoris Depression, major, severe [...] on 01/31/2025 she was evaluated at the [facility] because of chest pain. Workup was [...] sounds: Normal heart so (more content not included)...[facility]03-19-2025 NoteIR VENOGRAPHY VENOUS SAMPLE Procedure: Bilateral adrenal [...] was achieved using a micropuncture set. A GO-SIMson wire was advanced into the IVC and a 5 Kazakh vascular sheathwas placed. Selective catheterization of the right adrenal vein was performed using [facility] catheter and samples obtained. There [...] by Gage Núñez MD on 02/07/2025 10:[address] [facility] 01-18-2025 NotePatient contacted office, states she called [facility] Interventional Radiology to schedule the referral Dr. Christie had sent over, however no referral was received. Private Branch Exchange Service Adviser faxed referral and recent visit note to [phone].[facility]02-18-2025 NoteREASON FOR VISIT + HPI: Aby Madrigal [...] metoprolol - Jun 2019 CT A/P in [place], [place] performed for abd pain, incidentally detected [...] ER (Imdur) 60 mg (more content not included)...[facility]02-03-2025 NoteWriter spoke with Tram at [facility] regarding this patient. Tram said the way the order was placed through the system they just didn't see it, Tram assured report writer that patient was being scheduled at the secondary infusion location. Any questions or concerns call Tram at [phone]. [facility]2024 Note Attestation signed by Richa Viramontes MD at 10/27/2024 12:07 PM I have seen and examined the patient. I reviewed the resident/fellow note and I agree with the findings and plan. Richa Viramontes MD Interventional Pulmonary Medicine Pulmonary and Critical Care Medicine [place] [facility] Visit Note Patient: Aby Madrigal Age: 59 y.o. : 1965 Account No.: [id number] Chief complaint: RML nodule HPI Aby Madrigal is a 59 y.o. female with hypertension, CAD status post PCI recently in June 2024, cigarette smoking who is presenting to IP clinic via telemedicine as a new patient after being referred by Dr. Jarocho Saldaña. Patient reports recent admission to [place] ICU for hypertensive emergency. This prompted a [...] PFTs on file. CTA chest 04/21/2024 at [facility]: Right middle lobe approximately 1.2 cm solid nodule appreciated Subsequent PET CT 2024 at [facility]: Right middle lobe nodule is [...] of (more content not included)... [facility]11-12-2024 NoteREASON FOR VISIT + HPI: Aby aMdrigal is a 59 y.o. female with CAD [...] metoprolol - CT A/P Jun 2019 in [place], [place] performed for abd pain, incidentally detected [...] History: Diagnosis Date Abnormal ECG Diabetes mellitus ([facility]) Hyperlipidemia Hypertension Obstructive sleep apnea Panic attacks Stroke ([facility]) Past Surgical History: Procedure Laterality [...] Take 25 mg by (more content not included)...[facility]10-14-2024 NoteUT Cardiology - [facility] Subjective Aby Madrigal is a [...] infarction) (CMS/HCC) Hypokalemia Coronary artery disease involving wiyot coronary artery of wiyot heart without angina pectoris Depression, major, severe [...] Mood and Affect: M (more content not included)...[facility]08-29-2024 Note Attestation signed by Richa Viramontes MD [...] Age: 59 y.o. : 1965 Account No.: [id number] Referring physician: Dr. Jarocho Saldaña Chief complaint: RML nodule HPI Aby Madrigal is a 59 y.o. female with hypertension, CAD status post PCI recently in June 2024,, cigarette smoking who is presenting to clinic via telemedicine as a new patient after being referred by Dr. Jarocho Saldaña. Patient reports recent admission to [facility] for hypertensive emergency. This prompted a [...] PFTs on file. CTA chest 04/21/2024 at [facility]: Right middle lobe approximately 1 cm spiculated nodule appreciated Subsequent PET CT 2024 at [facility]: Right middle lobe nodule is [...] use alcohol. She reports (more content not included)...[facility] 07-18-2024 NoteREASON FOR VISIT + HPI: Aby [...] metoprolol - CT A/P Jun 2019 in [place], [place] performed for abd pain, incidentally detected [...] Hypertension Obstructive sleep apnea Panic attacks Stroke ([facility]) Past Surgical History: Procedure Laterality [...] , Rfl: carvedilol (C (more content not included)...[facility] 07-18-2024 Note07/18/24 1001 Referral Data Referral Source spoilage worker Referral Reason Information Patient Information Primary Caregiver Self Activities of Daily Living Assistive Device Not applicable Living Arrangement (Current/Prior to Hospitalization) Private residence Behavior Oriented Discharge Planning Support Systems Children;Family members Type of Residence Private residence Patient's goal for discharge home Patient recently discharged from [facility] to home. Resides at home alone. Discharge plan is home.[facility]08-27-2024 NotePatient sent to ED for hypotension and dizziness/lightheadednessUnUC Health08-21-2024 NoteHospital Medicine Discharge Summary Final Discharge Diagnosis: NSTEMI Admission Diagnosis: Hypokalemia [E87.6] NSTEMI (non-ST elevated myocardial infarction) (CMS/HCC) [I21.4] Hypertensive urgency [I16.0] Adenoma of left adrenal gland [D35.02] Resistant hypertension [I1A.0] Atherosclerosis of wiyot coronary artery of wiyot heart without angina pectoris [I25.10] Coronary artery disease involving wiyot coronary artery of wiyot heart with unstable angina pectoris (CMS/HCC) [I25.110] Type 2 diabetes mellitus without complication, without long-term current use of insulin ([facility]/HCC) [E11.9] Hospital course: 59yoF with CAD s/p LAD SARKIS 11 days ago who was admitted to [facility] on 07/11 for chest pain. patient initially presented to [facility] for uncomfortable feeling in her chest and was found to have elevated troponins and new ischemic changes on EKG. Infusion and cardiology was consulted transferred to [facility] for further evaluation. Initially the patient had blood pressures up to 192/65 for which home medications were restarted. Troponins at [facility] were negative and there were no EKG [...] Center 07/18/2024 8:20 AM Feng Christie MD [facility] 07/20/2024 1:00 PM Richa Viramontes MD [facility] 09/05/2024 1:00 PM Bijan Licea MD [facility] Your medication list START taking these medications [...] These medications were sent to [facility]/pharmacy #[id number] [facility] [address] isosorbide mononitrate ER 60 mg 24 hr [...] Renin activity In process (more content not included)...[facility]08-20-2024 Note 07/11/24 1817 Financial Resource Strain How [...] place to sleep or slept in a group home (including now)? N Transportation Needs In [...] than 3 How often do you attend gnosticism or yazdanism services? Never Do you belong to any clubs or organizations such as gnosticism groups, unions, fraternal or athletic groups, or [...] In the past 12 months has the [employer], gas, oil, or water company threatened to shut off services in your home? 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 Source spoilage worker Referral Reason Psychosocial assessment Patient Information Primary Caregiver Self Accompanied by/Relationship Daughter (Rosita); Iejzryek-ww-jol (Yesy) Activities of Daily Living Assistive Device Not applicable Living Arrangement (Current/Prior to Hospitalization) Private residence (Lives at home by herself) Ambulation Independent Dressing Independent Feeding Independent Behavior Oriented (A&Ox4) Communication Can write;Talks;Understands speaking;Understands Croatian;Reads Income Information Income Source Unemployed (receives survivor benefits) Discharge Planning Support Systems Children;Family members (daughter, xtknwgoe-eg-hmh, son) Type of Residence Private residence Will patient need Precert for Post Acute needs? No Patient's goal for discharge Home Does the patient need discharge transport arranged? No Completed social work assessment and SDoH screening. Patient was A&Ox4 at this time. Patient's daughter, Rosita, and patient's cjmhqzah-rw-fkn, Yesy, were currently present at bedside. Patient reported that she lives at home by herself and she identified her support system as her daughter, Rosita, her puzlwqgz-ph-tpz, Yesy, and her son, Elie. Patient endorsed [...] denied any alcohol consumption or recreational drug use.[facility] 07-11-2024 NoteHospital Medicine History and Physical 07/11/2024 12:19 PM THE HOSPITALIST TEAM PREFERS TO USE BitGravity CHAT FOR COMMUNICATION 7AM-7PM. IF I DO NOT RESPOND WITHIN 15 MINUTES, PLEASE PAGE ME/CALL THROUGH THE DIRECTOR OF MEDICAL STAFF SERVICES. FROM 7PM-7AM, PLEASE PAGE [phone](COVR) Chief Complaint Chief Complaint Patient presents with [...] presented to ER as a transfer from [facility] for NSTEMI. Patient states that last [...] Noted Hypokalemia 07/11/2024 Coronary artery disease involving wiyot coronary artery of wiyot heart with unstable angina pectoris ([facility]) 07/11/2024 Anxiety 06/30/2024 Type 2 diabetes mellitus without complication, without long-term current use of insulin ([facility]) 06/30/2024 Chest pain 06/30/2024 Elevated troponin 06/30/2024 Hypertensive urgency 06/30/2024 Hypomagnesemia 06/30/2024 QURESHI (dyspnea on exertion) 05/26/2024 Atherosclerosis of wiyot coronary artery of wiyot heart without angina pectoris 05/26/2024 Hyperlipidemia 05/26/2024 Murmur, heart 05/26/2024 Sepsis ([facility]) 07/14/2019 BV (bacterial vaginosis) 10/18/2017 GERD (gastroesophageal reflux disease) 10/18/2017 Essential hypertension 10/18/2017 TIA (transient ischemic attack) 10/18/2017 NSTEMI (non-ST elevated myocardial infarction) ([facility]) 06/29/2024 Assessment and Plan NSTEMI [...] daily for GI prophylaxis (more content not included)...[facility]08-19-2024 Note [facility] Note Reason [...] tablet (more content not included)... [facility]08-10-2024 NoteHospital Medicine Discharge Summary Final Discharge Diagnosis: [...] hypertension, IBS presents a direct mission from [facility] with a chief complaint of chest [...] seen on her EKG. She went to [facility] for the symptoms. Labs were completed [...] These medications were sent to [facility]/pharmacy #[id number] [place], [place] - [address] [address] carvedilol 25 mg tablet cloNIDine 0.1 mg [...] 7 days Lab Units more content not included)...[facility]08-10-2024 NoteUTP CARDIOLOGY INPATIENT PROGRESS NOTE Reason for follow up: NSTEMI Subjective Aby Madrigal, a 59 y.o. female patient, is transferred from [facility] for continuity of care. Patient reports that 3 days ago, she woke up in the mid of the night with indigestion, and a feeling fullness, but no pressure like chest pain. She presented to [facility], where she was found to be [...] MONOSABS 0.56 06/29/2024 E (more content not included)...[facility]08-09-2024 NotePatient: Aby Madrigal Procedure Information Date/Time: 06/30/24 1600 Procedure: Coronary angiography (Bilateral) Location: [facility] BILINGUAL CUSTOMER SERVICE SPECIALIST 3 / [facility] (Cath) Providers: Brunilda Cuellar [...] products. Plan discussed with attending. Additional Equipment RequestsUnUC Health08-09-2024 Note 06/30/24 1446 Referral Data Referral Source spoilage worker Referral Reason Follow up;Information Patient Information Primary Caregiver Self Accompanied by/Relationship daughters at bedside Activities of Daily Living Assistive Device Not applicable Living Arrangement (Current/Prior to Hospitalization) Private residence (three to four stairs) Ambulation Independent Dressing Independent Feeding Independent Behavior Oriented Communication Talks;Understands speaking;Understands Croatian Discharge Planning Support Systems Children (daughters will [...] or questions for social work at this time.[facility]08-09-2024 Note06/30/24 1431 Admission Assessment Questions Verify insurance [...] Not Interested Does the patient have a comp field case manager assigned to them through [...] able to send link and activate MyChart? No[facility]-2024 NoteCase was discussed with the SALVADOR on 06/29/2024. I agree with the history, physical, assessment, and plan of care. I discussed the findings and therapeutic plan. I agree with the documentation, except for any updates below. Maurice Nogueira MDR[facility]08-09-2024 NoteHospital Medicine History and Physical 06/30/2024 1:15 AM THE HOSPITALIST TEAM PREFERS TO USE BitGravity CHAT FOR COMMUNICATION 7AM-7PM. IF I DO NOT RESPOND WITHIN 15 MINUTES, PLEASE PAGE ME/CALL THROUGH THE DIRECTOR OF MEDICAL STAFF SERVICES. FROM 7PM-7AM, PLEASE PAGE [phone](COVR) Chief Complaint Direct admission from [facility] with CP History of Present Illness Aby Madrigal is an 59 y.o. female who came from home with past medical history of anxiety, DM2, hypertension, IBS presents a direct mission from [facility] with a chief complaint of chest [...] seen on her EKG. She went to [facility] for the symptoms. Labs were completed [...] complication, without long-term current use of insulin ([facility]) 06/30/2024 Chest pain 06/30/2024 Elevated troponin 06/30/2024 Hypertensive urgency 06/30/2024 QURESHI (dyspnea on exertion) 05/26/2024 Atherosclerosis of wiyot coronary artery of wiyot heart without angina pectoris 05/26/2024 Hyperlipidemia 05/26/2024 Murmur, heart 05/26/2024 Sepsis ([facility]) 07/14/2019 BV (bacterial vaginosis) 10/18/2017 GERD (gastroesophageal reflux disease) 10/18/2017 Essential hypertension 10/18/2017 TIA (transient ischemic attack) 10/18/2017 Assessment and Plan Aby Madrigal is an 59 y.o. female who came from home with past medical history of anxiety, DM2, hypertension, IBS presents a direct mission from [facility] with a chief complaint of chest [...] echoc (more content not included)... [facility]01-04-2023 NoteOPERATIVE NOTE OPERATION DATE: 11/25/2022 PREOPERATIVE DIAGNOSIS: [...] in 10 years. CC: Kendra Moran M.D.[facility] No data available for this section General Surgery [place] Evaluation note* Diagnosis Genitourinary syndrome of menopause- Primary PCB (post coital bleeding) Postcoital bleeding documented [facility] information available [facility] Work Phone: Evaluation note* Diagnosis Well woman exam with routine gynecological exam- Primary Routine gynecological examination documented in this encounter [facility] No data available for this section General Surgery [place] Instructions* Attachments The following attachments cannot be sent through Care Everywhere. * Calcium and vitamin D for bone health (Croatian) * Vaginal dryness (Croatian) documented in this encounterBarnesville HospitalProgress note No data available for this section General Surgery [place] Reason for referral (narrative)No reason for referral information availableSumma Health [facility] Work Phone: Summary Purpose Family [...] team informatio n (unrecognized section and content) Catheter Finisher And Inspector Relationship Specialty Start Date End Date Kendra [...] May 21, 2025 End: May 21, 2025 Catheter Finisher And Inspector Relationship Specialty Start Date End Date Kendra Moran MD PCP - General Family Medicine 06/06/19 INFORMATION SOURCE (unrecogn ized section and content) DATE CREATED AUTHOR 03/26/2023 [facility] DATE CREATED AUTHOR AUTHOR'S ORGANIZ ATION 02/11/2025 [facility] DATE CREATED AUTHOR AUTHOR'S ORGANIZ ATION 06/05/2025 [facility] DATE CREATED AUTHOR AUTHOR'S ORGANIZ ATION 06/06/2025 [facility] DATE CREATED AUTHOR AUTHOR'S ORGANIZ ATION 06/27/2025 [facility] DATE CREATED AUTHOR AUTHOR'S ORGANIZ ATION 07/24/2025 [facility] Reason for Visit (unrecogniz ed section [...] BE BASED ON THE PRIMARY CLINICAL RECORDS. [facility]. provides no warranty or guarantee of the accuracy or completeness of information in this document.
--- NOTE | 2025-09-06 13:58 | MM_ITS ---
Patient Name: MILAN RASMUSSEN MR#: [id number] : 1965 Exam Date: 09/06/2025 Ordering Doctor: DR KENDRA MORAN . RADIOLOGY REPORT PROCEDURE: MM TOMOSYNTHESIS SCREENING BI COMPARISON: MG MAMM SCREEN NINO W CAD, 10/31/2020. MG MAMM SCREEN NINO W CAD, 10/18/2018. MG MAMM NINO SCRN W CAD DIG, 09/20/2013. MG MAMM NINO SCRN W CAD DIG, 07/13/2006. INDICATIONS: Screening Calculator Name NCI Breast Cancer Risk Assessment Tool 5 Year Breast Cancer Risk 2.80% Lifetime Breast Cancer Risk 12.90% Personal Breast Cancer No Personal Ovarian Cancer No Treatments None Family Cancers Mother with breast cancer at age 47; Mother with lung cancer at age 59; Sister with lung cancer at age 44. LOCATION: [facility] BREAST COMPOSITION: There are scattered areas of fibroglandular density. FINDINGS: RIGHT BREAST: No significant suspicious finding. LEFT BREAST: No significant suspicious finding. DIAGNOSTIC CATEGORY 1--NEGATIVE. RECOMMENDATIONS: ROUTINE MAMMOGRAM AND CLINICAL EVALUATION IN 12 MONTHS. Dictated by: Jorge Stanley MD on 09/06/2025 at 14:48 Approved by: Jorge Stanley MD on 09/06/2025 at 14:51
== END 2025-09-06 13:52 | disposition home or self-care (01) ==
LOC: MAMMO 13:51
PROVIDERS: PCP Family Medicine; Visit Provider Family Medicine
DX: Z12.31 Encounter for screening mammogram for malignant neoplasm of breast (principal); Z80.3 Family history of malignant neoplasm of breast; Z80.1 Family history of malignant neoplasm of trachea, bronchus and lung
CPT/HCPCS: 77063; 77067; 93798

== ENCOUNTER 2025-09-27 13:01 | Outpatient (OUT) | payer MEDICAID, SELFPAY ==
--- OUTSIDE RECORDS SUMMARY | 2025-09-13 14:48 | XMS_ITS | Encounter Summary ---
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 Role Phone Carlito Murillo MD Primary Care Provider [phone] Reason for Referral * Imaging (Routine) - AuthorizedSpecialtyDiagnoses / ProceduresReferred By ContactReferred To ContactRadiology Diagnoses Lung nodule Cigarette smoker Procedures LDCT lung screening Richa Grace MD [address] [place] [address] Phone: tel: fax: Radiology [address] [place] [address] Phone: tel: fax: Referral IDStatusReasonStart DateExpiration DateVisits RequestedVisits [id number]/5/202412/ Reason for Visit * Imaging (Routine) - AuthorizedSpecialtyDiagnoses / ProceduresReferred By ContactReferred To ContactRadiology Diagnoses Lung nodule Cigarette smoker Procedures LDCT lung screening Richa Grace MD [address] [place] [address] Phone: tel: fax: Radiology [address] [place] [address] Phone: tel: fax: Referral IDStatusReasonStart DateExpiration DateVisits RequestedVisits [id number]/5/202412/ Encounter Details DateTypeDepartmentCare Team (Latest Contact Info)Crjfnchtycu43/23/2025 3:48 PM EDT - 09/13/2025 11:59 PM EDTHospital Encounter [facility] [address] [place] [address] Lung nodule; Cigarette smoker Discharge Disposition: Home or Self Care () Social History Tobacco UseTypesPacks/DayYears UsedDateSmoking Tobacco: [id number] - mokeless Tobacco: NeverAlcohol UseStandard Drinks/WeekCommentsNot Currently0 (1 standard drink = 0.6 oz pure alcohol)Used to drink a lot on the weekendCRYSTAL CLINIC [facility] UtilitiesAnswerDate RecordedIn the past 12 months has the [employer], gas, oil, or water [employer] threatened to shut off services in your home?No 06/07/2025Humiliation, Afraid, Rape, and Kick questionnaireAnswerDate Recorded Within the last year, have you been afraid of your partner or ex-partner?No 06/07/2025Emotionally AbusedNot on file06/07/2025Physically AbusedNot on file 06/07/2025Sexually AbusedNot on file06/07/2025Social Connection and Isolation PanelAnswerDate RecordedIn a typical week, how many times do you talk on the phone with family, friends, or neighbors?More than three times a week07/11/2024 How often do you get together with friends or relatives?More than three times a week07/11/2024How often do you attend roman catholic or baptism services?Never 07/11/2024o you belong to any clubs or organizations such as roman catholic groups, unions, fraternal or athletic groups, or school groups?No07/11/2024How often do you attend meetings of the clubs or organizations you belong to?Never07/11/2024 Are you , , , , never , or living with a partner?Bkooaib6007/11/2024UDIT-CAnswerDate RecordedQ1: How often do you have a drink containing alcohol?Never07/11/2024Q2: How many drinks containing alcohol do you have on a typical day when you are drinking?Patient does not drink 07/11/2024Q3: How often do you have six or more drinks on one occasion?Never 07/11/2024Overall Financial Resource Strain (CARDIA)AnswerDate RecordedHow hard is it for you to pay for the very basics like food, housing, medical care, and heating?Not hard at all06/07/2025PHQ-2AnswerDate RecordedPatient Health Questionnaire-2 Vdylw65712/27/2023Finmount[facility] point medical [facility] [place] of Occupational Health - Occupational Stress QuestionnaireAnswerDate RecordedDo you feel stress - tense, restless, nervous, or anxious, or unable to sleep at night because yourmind is troubled all the time - these days?Only a cspqwd8107/11/2024TransportationAnswer Date RecordedIn the past 12 months, has lack of transportation kept you from medical appointments or from getting medications?No06/07/2025Lack of Transportation (Non-Medical)Not on file06/07/2025Housing Stability Vital Sign AnswerDate RecordedIn the last 12 months, was there a time when you were not able to pay the mortgage or rent on time?No06/07/2025In the past 12 months, how many times have you moved where you were living?t any time in the past 12 months, were you homeless or living in a usp (including now)?Yes 06/07/2025Hunger Vital SignAnswerDate RecordedWithin the past 12 months, you worried that your food would run out before you got the money to buymore.Never true06/07/2025Ran Out of Food in the Last YearNot on file06/07/2025 CommentsNoSex and Gender InformationValueDate RecordedSex Assigned at Tbaimy9106/22/2025 1:49 PM EDTLegal EglDcofvh22/29/2022 10:42 PM EDTGender BqktdnaxKpmrpy00/01/2025 1:49 PM EDTSexual OrientationHeterosexual or Straight 06/22/2025 1:49 PM EDTdocumented as of this encounter Medications at Time of Discharge MedicationSigDispense QuantityRefillsLast FilledStart DateEnd Date aspirin 81 mg EC tablet Indications:NSTEMI (non-ST elevated myocardial infarction) (CMS/HCC)Take 1 tablet (81 mg) by mouth in the morning. 30 tablet carvedilol (Coreg) 12.5 mg tablet Indications:Primary hypertensionTake 2 tablets (25 mg) by mouth two times daily for 197 doses. 120 tablet clopidogrel (Plavix) 75 mg tablet Indications:NSTEMI (non-ST elevated myocardial infarction) (CMS/HCC),Chest pain Take 1 tablet (75 mg) by mouth in the morning. 30 tablet hydrALAZINE (Apresoline) 50 mg tablet Take 50 mg by mouth if needed in the morning, at noon, and at bedtime.08/23/2024 Invokana 100 mg Take 300 mg by mouth in the morning.08/23/2024 isosorbide mononitrate ER (Imdur) 30 mg 24 hr tablet Indications:Coronary artery disease involving reno-sparks coronary artery of reno-sparks heart without angina pectorisTake 1 tablet (30 mg) by mouth in the morning. Do not crush or chew. 90 tablet LORazepam (Ativan) 1 mg tablet TAKE 1 TABLET BY MOUTH THREE TIMES A DAY FOR 30 DAYS10/17/2024 magnesium oxide (Mag-Ox) 400 mg (241.3 mg magnesium) tablet Take 400 mg by mouth in the morning.05/01/2025 Protonix 40 mg EC tablet Take 40 mg by mouth if needed each day.09/20/2023 QUEtiapine (SEROquel) 100 mg tablet Take 100 mg by mouth in the morning.10/07/2024 rosuvastatin (Crestor) 40 mg tablet Indications:Chest pain,NSTEMI (non-ST elevated myocardial infarction) (CMS/HCC) Take 1 tablet (40 mg) by mouth in the morning. 30 tablet /10/2025 spironolactone (Aldactone) 50 mg tablet Indications:Primary hypertensionTake 0.5 tablets (25 mg) by mouth in the morning.04/23/2025documented as of this encounter Plan of Treatment Not on file documented as of this encounter Procedures Procedure NamePriorityDate/TimeAssociated DiagnosisCommentsLDCT LUNG SCREENING Spiswxl3809/13/2025 4:00 PM EDT Lung nodule Cigarette smoker documented in this encounter Results * LDCT lung screening (09/13/2025 4:00 PM EDT)Anatomical RegionLaterality ModalityLungComputed TomographySpecimen (Source)Anatomical Location / LateralityCollection Method / VolumeCollection TimeReceived Time09/14/2025 9:29 AM EDT Impressions 09/14/2025 9:33 AM EDT No suspicious pulmonary nodules. Stable 1 cm right middle lobe nodule suggestive of scarring. Resolution of previous left lower lobe suggesting inflammatory process. Heavy coronary artery calcification. Stable left adrenal nodule. Lung Rads Category: Benign appearance or behavior Recommendation: Follow up LDCT in 1 Year Electronically signed: Armando Garcia. Narrative 09/14/2025 9:33 AM EDT CLINICAL INFORMATION: Screening visit: Personal history of tobacco use/personal history of nicotine dependence. Lung cancer screening. ?? The patient is a former smoker. The patient has a 45 pack year history of smoking. COMPARISON: 10/26/2024 TECHNIQUE: Low dose CT chest performed without contrast with coronal and sagittal and maximum intensity projection reconstructed images. Maximum intensity projection images generated to increase the sensitivity of pulmonary nodule detection. Automated exposure control was utilized. All CT scans at this facility use dose modulation, iterative reconstruction, and/or weight based dosing when appropriate to reduce radiation dose to as low as reasonably achievable. FINDINGS: Diagnostic quality: Satisfactory Lung nodules: Stable 1 cm nodule right middle lobe. A previous left lower lobe nodule has resolved in the interval. Lungs and pleural spaces: No acute infiltrate. No pleural effusion or pleural thickening. Centrilobular emphysematous change. Heart and mediastinum: No mass or adenopathy. Main pulmonary artery diameter: 2.3 cm. Ascending thoracic aortic diameter: 3.0 cm. Descending thoracic aortic diameter: 2.5 cm Heart size: Within normal limits Coronary calcification: Heavy Pericardial effusion: None Other findings: Stable 3 cm left adrenal nodule Degenerative changes within the thoracic spine Procedure Note Armando Garcia MD - 09/14/2025 CLINICAL INFORMATION: Screening visit: Personal history of tobacco use/personal history ofnicotine dependence. Lung cancer screening. The patient is a former smoker. The patient has a 45 pack year history of smoking. COMPARISON: 10/26/2024 TECHNIQUE: Low dose CT chest performed without contrast with coronal and [place] maximum intensity projection reconstructed images. Maximum intensityprojection images generated to increase the sensitivity of pulmonary noduledetection. Automated exposure control was utilized. All CT scans at this facility use dose modulation, iterativereconstruction, and/or weight based dosing when appropriate to reduce radiation dose to aslow as reasonably achievable. FINDINGS: Diagnostic quality: Satisfactory Lung nodules: Stable 1 cm nodule right middle lobe. A previous left lower lobe nodule has resolved in the interval. Lungs and pleural spaces: No acute infiltrate. No pleural effusion orpleural thickening. Centrilobular emphysematous change. Heart and mediastinum: No mass or adenopathy. Main pulmonary artery diameter: 2.3 cm. Ascending thoracic aortic diameter: 3.0 cm. Descending thoracic aortic diameter: 2.5 cm Heart size: Within normal limits Coronary calcification: Heavy Pericardial effusion: None Other findings: Stable 3 cm left adrenal nodule Degenerative changes within the thoracic spine IMPRESSION: No suspicious pulmonary nodules. Stable 1 cm right middle lobe nodule suggestive of scarring. Resolution of previous left lower lobe suggesting inflammatory process. Heavy coronary artery calcification. Stable left adrenal nodule. Lung Rads Category: Benign appearance or behavior Recommendation: Follow up LDCT in 1 Year Electronically signed: Armando Garcia. Authorizing ProviderResult TypeResult StatusMohamed Lesly VALLECILLO CT PROCEDURES Final Result documented in this encounter Visit Diagnoses Diagnosis Lung nodule Other diseases of lung, not elsewhere classified Cigarette smoker Tobacco use disorder documented in this encounter Care Teams Team MemberRelationshipSpecialtyStart DateEnd Date Carlito Murillo MD [address] [facility] [place] [id number] PCP - General05/24/24documented as of this encounter
--- OUTSIDE RECORDS SUMMARY | 2025-09-18 09:45 | XMS_ITS | Encounter Summary ---
Author Organization [facility] Address [address] [place] [address] Care Team Providers Care [employer] Name Role Phone Carlito Murillo MD Primary Care Provider [phone] Reason for Referral * Imaging (Routine) - Pending ReviewSpecialtyDiagnoses / ProceduresReferred By ContactReferred To ContactRadiology Diagnoses Lung nodule Cigarette smoker Procedures LDCT lung screening Ricah Grace MD [address] [place] [address] Phone: tel: fax: Referral IDStatusReasonStart DateExpiration DateVisits RequestedVisits [id number] Encounter Details DateTypeDepartmentCare Team (Latest Contact Info)Tjoaogtyqpy96/28/2025 10:45 AM EDTFollow-Up Kayy Maurer [facility] [address] [place] [address] Richa Grace MD [address] [place] [address] Lung nodule (Primary Dx); Cigarette smoker Social History Tobacco UseTypesPacks/DayYears UsedDateSmoking Tobacco: [id number] - mokeless Tobacco: NeverAlcohol UseStandard Drinks/WeekCommentsNot Currently0 (1 standard drink = 0.6 oz pure alcohol)Used to drink a lot on the weekendW[facility] UtilitiesAnswerDate RecordedIn the past 12 months has the electric, gas, oil, or water company threatened to shut off services in your home?No 06/07/2025Humiliation, Afraid, Rape, and Kick questionnaireAnswerDate Recorded Within the last year, have you been afraid of your partner or ex-partner?No 09/18/2025Emotionally AbusedNot on file09/18/2025Physically AbusedNot on file 09/18/2025Sexually AbusedNot on file09/18/2025Social Connection and Isolation PanelAnswerDate RecordedIn a typical week, how many times do you talk on the phone with family, friends, or neighbors?More than three times a week07/11/2024 How often do you get together with friends or relatives?More than three times a week07/11/2024How often do you attend catholic or presybeterian services?Never 07/11/2024o you belong to any clubs or organizations such as catholic groups, unions, fraternal or athletic groups, or school groups?No07/11/2024How often do you attend meetings of the clubs or organizations you belong to?Never07/11/2024 Are you , , , , never , or living with a partner?Khkjqak9807/11/2024UDIT-CAnswerDate RecordedQ1: How often do you have a [...] heating?Not hard at all06/07/2025PHQ-2AnswerDate RecordedPatient Health Questionnaire-2 Bhydn909Fin[facility] [place] of Occupational Health - Occupational Stress QuestionnaireAnswerDate RecordedDo you feel stress - tense, restless, nervous, or anxious, or unable to sleep at night because yourmind is troubled all the time - these days?Only a pzvckl0607/11/2024TransportationAnswer Date RecordedIn the past 12 months, has [...] or living in a nursing home (including now)?Yes 06/07/2025Hunger Vital SignAnswerDate RecordedWithin the past 12 months, you worried that your food would run out before you got the money to buymore.Never true06/07/2025Ran Out of Food in the Last YearNot on file06/07/2025 CommentsNoSex and Gender InformationValueDate RecordedSex Assigned at Lrohmm6006/22/2025 1:49 PM EDTLegal RwnOkzpir50/29/2022 10:42 PM EDTGender YxgnojgqNppzjb94/01/2025 1:49 PM EDTSexual OrientationHeterosexual or Straight 06/22/2025 1:49 PM EDTdocumented as of this encounter Last Filed Vital Signs Vital SignReadingTime TakenCommentsBlood Dztwspai359/7209/18/2025 10:41 AM EDT Mxpyp830109/18/2025 10:41 AM OXXTztsvsyailr15.6 ??C (97.8 ??F)09/18/2025 10:41 AM EDTRespiratory Rate--Oxygen Crlsimidev78%09/18/2025 10:41 AM EDTInhaled Oxygen Concentration--Uqkwal90 kg (207 lb 3.2 oz)09/18/2025 10:41 AM LOQBeacbr889 cm (5' 3 )09/18/2025 10:41 AM EDTBody Mass Index36. 10:41 AM EDT documented in this encounter Functional Status * BPAnswerDate of SpjtnayhiaYpetxo688/7210/ 10:41 AM Willa [place] MA * PulseAnswerDate of SsoojoosbjOrvxfv3180/28/2025 10:41 AM Willa [place] MA * BPAnswerDate of MjijhcqusvXqnycg368/7209/18/2025 10:41 AM Willa [place] MA * TempAnswerDate of CyxjilznnbUxfkqd36.810 10:41 AM Willa [place] MA * PulseAnswerDate of FvnzjuheieJzwysg7456/28/2025 10:41 AM Willa [place] MA * FlM7XxxzfpEopi of SwrmzsclpdWztcjs6278/28/2025 10:41 AM Willa [place] MA * Over the past 2 weeks, how often have you been bothered by any of the following problems?QuestionAnswerDate of AssessmentAuthorThoughts that you would be better off or hurting yourself in some wayNot at all09/18/2025 10:45 AM Willa [place] MAPatient Health Questionnaire-9 Score0 09/18/2025 10:45 AM Willa [place] MATrouble falling or staying asleep, or sleeping too muchNot at all09/18/2025 10:45 AM Willa [place] MA Feeling tired or having little energyNot at all09/18/2025 10:45 AM Willa Jones MAPoor appetite or overeatingNot at all09/18/2025 10:45 AM Willa [place] MAFeeling bad about yourself - or that you are a failure or have let yourself or your family downNot at all09/18/2025 10:45 AM Willa Jones MATrouble concentrating on things, such as reading the newspaper or watching televisionNot at all09/18/2025 10:45 AM Willa [place] MAMoving or speaking so slowly that other people could have noticed? Or the opposite - being so fidgety or restless that you have been moving around a lot more than usual.Not at all09/18/2025 10:45 AM Willa [place] MA * Over the past 2 weeks, how often have you been bothered by any of the following problems?QuestionAnswerDate of AssessmentAuthorLittle interest or pleasure in doing thingsNot at all09/18/2025 10:45 AM Willa [place] MA Feeling down, depressed, or hopelessNot at all09/18/2025 10:45 AM Willa [place] MAPatient Health Questionnaire-2 Meusb747 10:45 AM Willa [place] MA documented as of this encounter Progress Notes * Wil Rodriguez MD - 09/18/2025 10:45 AM EDT Images from the original note were not included. Pulmonary Clinic Visit Note Patient: Aby Madrigal Age: 60 y.o. : 1965 Account No.: [id number] Referring physician: Dr. Jarocho Saldaña Chief complaint: RML Nodule HPI Aby Madrigal is a 60 y.o. female who has a past med history which includes hypertension, coronary disease status post PCI./2023, cigarette smoking who presented to IP clinic for right middle lobe nodule follow-up. Patient last seen in clinic on 10/26/2024 Patient is endorsing some dyspnea on exertion but otherwise patient presents today without any overt complaints. Patient currently on albuterol inhaler as needed. Pulmonary function testing ordered at the time of last visit not performed. Patient is a former tobacco user. Quit in 2021, 00-vzca-jtxk history. Most Recent Chest Imaging: Low-dose CT scan performed on 09/13/2025 revealed stable 1 cm right middle lobe nodule suggestive of scarring. Pulmonary Function Testing: None on file Medical History[1] Surgical History[2] Allergies: Lisinopril, Norvasc [amlodipine], and Xanax [alprazolam] Prior to Admission medications Medication Sig Start Date End Date Taking? Authorizing Provider aspirin 81 mg EC tablet Take 1 tablet (81 mg) by mouth in the morning. 06/08/25 06/08/26 Gokul Cutler MD carvedilol (Coreg) 12.5 mg tablet Take 2 tablets (25 mg) by mouth two times daily for 197 doses. 06/08/25 09/15/25 Gokul Cutler MD clopidogrel (Plavix) 75 mg tablet Take 1 tablet (75 mg) by mouth in the morning. 06/08/25 06/03/26 Gokul Cutler MD hydrALAZINE (Apresoline) 50 mg tablet Take 50 mg by mouth if needed in the morning, at noon, and atbedtime. Patient taking differently: Take 50 mg by mouth if needed. 08/23/24 Historical Provider, Invokana 100 mg Take 300 mg by mouth in the morning. 08/23/24 Historical Provider, isosorbide mononitrate ER (Imdur) 30 mg 24 hr tablet Take 1 tablet (30 mg) by mouth in the morning.Do not crush or chew. 06/25/25 06/25/26 Rafa Spence MD LORazepam (Ativan) 1 mg tablet TAKE 1 TABLET BY MOUTH THREE TIMES A DAY FOR 30 DAYS Patient taking differently: Take 0.5 mg by mouth every 6 (six) hours if needed for sleep. 10/17/24 Historical Provider, magnesium oxide (Mag-Ox) 400 mg (241.3 mg magnesium) tablet Take 400 mg by mouth in the morning. 05/01/25 Historical ProviderMD Protonix 40 mg EC tablet Take 40 mg by mouth if needed each day. Patient taking differently: Take 40 mg by mouth two times daily. 09/20/23 Historical Provider, QUEtiapine (SEROquel) 100 mg tablet Take 100 mg by mouth in the morning. Patient taking differently: Take 50 mg by mouth in the morning. 10/07/24 Historical Provider, rosuvastatin (Crestor) 40 mg tablet Take 1 tablet (40 mg) by mouth in the morning. 07/01/24 10/03/25Antonio Fuchs MD spironolactone (Aldactone) 50 mg tablet Take 0.5 tablets (25 mg) by mouth in the morning. Patient taking differently: Take 12.5 mg by mouth in the morning. 04/23/25 Rafa Spence MD Social history: reports that she quit smoking about 3 years ago. Her smoking use included cigarettes. She started smoking about 48 years ago. She has a 45 pack-year smoking history. She has never used smokeless tobacco. She reports that she does not currently use alcohol. She reports that she does not use drugs. Family History[3] Review of Systems: Review of Systems Constitutional: Negative for chills, fever and unexpected weight change. Respiratory: Positive for shortness of breath. Negative for cough. Cardiovascular: Positive for leg swelling. Negative for chest pain. Physical examination: Vitals: There were no vitals taken for this visit. Physical Exam Constitutional: Appearance: Normal appearance. She is obese. HENT: Head: Normocephalic and atraumatic. Mouth/Throat: Mouth: Mucous membranes are moist. Pharynx: Oropharynx is clear. Eyes: Extraocular Movements: Extraocular movements intact. Pupils: Pupils are equal, round, and reactive to light. Cardiovascular: Pulses: Normal pulses. Heart sounds: Normal heart sounds. Pulmonary: Effort: Pulmonary effort is normal. Breath sounds: Normal breath sounds. Abdominal: General: Abdomen is flat. Palpations: Abdomen is soft. Musculoskeletal: General: Normal range of motion. Cervical back: Normal range of motion and neck supple. Right lower leg: Edema present. Left lower leg: Edema present. Skin: General: Skin is warm and dry. Neurological: General: No focal deficit present. Mental Status: She is alert and oriented to person, place, and time. Psychiatric: Mood and Affect: Mood normal. Behavior: Behavior normal. Labs Results: Lab Results Component Value Date HGB 11.2 (L) 06/08/2025 HGB 11.5 (L) 06/07/2025 HGB 11.2 (L) 07/12/2024 HCT 35.2 (L) 06/08/2025 HCT 36.6 06/07/2025 HCT 34.2 (L) 07/12/2024 WBC 5.53 06/08/2025 WBC 4.78 06/07/2025 WBC 6.27 07/12/2024 BUN 13 06/08/2025 BUN 16 06/07/2025 BUN 19 08/29/2024 CREATININE 0.90 06/08/2025 CREATININE 1.07 06/07/2025 CREATININE 0.95 08/29/2024 NA 140 06/08/2025 NA 142 06/07/2025 NA 141 08/29/2024 K 3.7 06/08/2025 K 3.8 06/07/2025 K 3.9 01/02/2025 CO2 24 06/08/2025 CO2 26 06/07/2025 CO2 28 08/29/2024 Radiology: No Chest X-ray results found for the past 24 hours LDCT lung screening Result Date: 09/14/2025 No suspicious pulmonary nodules. Stable 1 cm right middle lobe nodule suggestive of scarring. Resolution of previous left lower lobe suggesting inflammatory process. Heavy coronary artery calcification. Stable left adrenal nodule. Lung Rads Category: Benign appearance or behavior Recommendation: Follow up LDCT in 1 Year Electronically signed: Armando Garcia. CT chest wo IV contrast Result Date: 10/27/2024 * Stable 1.1 cm noncalcified nodule in the right middle lobe. * New indeterminate 0.8 cm nodule in the left lower lobe. Follow-up chest CT recommended in 3 months to reassess. There is also a new area of atelectasis in the left lower lobe. * Stable appearance of left adrenal nodule measuring 3.2 cm. Electronically signed: Marlon Green MD. Assessment and Plan: 1 cm right middle lobe lung nodule, stable, last demonstrated on low-dose CT scan on 09/13/2025 COPD, emphysematous, no pulmonary function test on file Former tobacco user, 48-nntq-flyr history, quit in 2021 Plan: - Patient unchanged from time of last visit - Inhalers: Albuterol as needed - LDCT (09/13/2025) revealed stable 1 cm right middle lobe nodule suggestive of scarring - Continue low-dose CT scan surveillance, next low-dose CT plan for 08/2026 - Return to clinic in one year for annual follow up Wil Rodriguez MD [facility] Pulmonology and Critical Care Fellow, PGY-4 [1] Past Medical History: Diagnosis Date Abnormal ECG Diabetes mellitus (CMS/HCC) Heart murmur Hyperlipidemia Hypertension Myocardial infarction (CMS/HCC) Obstructive sleep apnea Panic attacks Stroke (CMS/HCC) [2] Past Surgical History: Procedure Laterality Date CARDIAC CATHETERIZATION CEREBRAL ANGIOGRAM CHOLECYSTECTOMY CORONARY STENT PLACEMENT HYSTERECTOMY TUBAL LIGATION [3] Family History Problem Relation Name Age of Onset Lung cancer Mother Accidental Father Lung cancer Sister Cosigned by Richa Grace MD at 09/19/2025 8:38 AM EDT Associated attestation - Richa Grace MD - 09/19/2025 8:38 AM EDT I have seen and examined the patient. I reviewed the resident/fellow note and I agree with the findings and plan. Richa Grace MD, D-AABIP Interventional Pulmonary Medicine Pulmonary and Critical Care Medicine [facility] documented in this encounter Plan of Treatment NameTypePriorityAssociated DiagnosesOrder ScheduleLDCT lung screeningImaging Routine Lung nodule Cigarette smoker Expected: 09/18/2026, Expires: 03/19/2027documented as of this encounter Visit Diagnoses Diagnosis Lung nodule- Primary Other diseases of lung, not elsewhere classified Cigarette smoker Tobacco use disorder documented in this encounter Care Teams Team MemberRelationshipSpecialtyStart DateEnd Date Carlito Murillo MD [address] [place], [place] [address] [address] PCP - General05/24/24documented as of this encounter
--- OUTSIDE RECORDS SUMMARY | 2025-09-27 13:06 | XMS_ITS | Encounter Summary ---
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 Dx) Social History Tobacco UseTypesPacks/DayYears UsedDateSmoking Tobacco: [id number] - mokeless Tobacco: NeverAlcohol UseStandard Drinks/WeekCommentsNot Currently0 (1 standard drink = 0.6 oz pure alcohol)Used to drink a lot on the weekendAHC UtilitiesAnswerDate RecordedIn the past 12 months has [...] times a week07/11/2024How often do you attend rastafari or sikh services?Never 07/11/2024o you belong to any clubs or organizations such as rastafari groups, unions, fraternal or athletic groups, or school groups?No07/11/2024How often do you attend meetings of the clubs or organizations you belong to?Never07/11/2024 Are you , , , , never , or living with a partner?Kuvxzth0907/11/2024UDIT-CAnswerDate RecordedQ1: How often do you have a [...] heating?Not hard at all06/07/2025PHQ-2AnswerDate RecordedPatient Health Questionnaire-2 Rwpwp53012/27/2023Finmount[facility] [place] of Occupational Health - Occupational Stress QuestionnaireAnswerDate RecordedDo you feel stress - tense, restless, nervous, or anxious, or unable to sleep at night because yourmind is troubled all the time - these days?Only a xaafoa0007/11/2024TransportationAnswer Date RecordedIn the past 12 months, has [...] CommentsNoSex and Gender InformationValueDate RecordedSex Assigned at Ialdvp8906/22/2025 1:49 PM EDTLegal MpbWwjxrx75/29/2022 10:42 PM EDTGender CzjhlfcbKzasdw53/01/2025 1:49 PM EDTSexual OrientationHeterosexual or Straight 06/22/2025 1:49 PM EDTdocumented as of this encounter Plan of Treatment NameTypePriorityAssociated DiagnosesOrder ScheduleBasic metabolic panelLab Routine Benign hypertensive heart disease without congestive heart failure Expected: 09/14/2025 (Approximate), Expires: 09/14/2026documented as of this encounter Visit Diagnoses Diagnosis Benign hypertensive heart disease without congestive heart failure- Primary Benign hypertensive heart disease without heart failure documented in this encounter Care Teams Team MemberRelationshipSpecialtyStart DateEnd Carlito Murillo MD [address] [facility] [address] PCP - General05/24/24documented as of this encounter
--- OUTSIDE RECORDS SUMMARY | 2025-09-27 13:06 | XMS_ITS | Clinical Summary ---
Author Organization [facility] Address [address] [place] [address] Care Team Providers Care Sewage Disposal Worker Name Role Phone Carlito Murillo MD Primary Care Provider [phone] Allergies Active AllergyReactionsCriticalityNoted VkmcGrvjasogZwseosqzmpPzyeg49/31/2024 MdwdamnumjPymsi78/31/2024 Twitchy eye EaqovntnnpCvejm25/05/2024 Medications MedicationSigDispense QuantityRefillsLast FilledStart DateEnd DateStatus Protonix 40 mg EC tablet Take 40 mg by mouth if needed each day.09/20/2023ctive rosuvastatin (Crestor) 40 mg tablet Indications:Chest pain,NSTEMI (non-ST elevated myocardial infarction) (CMS/HCC) Take 1 tablet (40 mg) by mouth in the morning. 30 tablet 5Active Invokana 100 mg Take 300 mg by mouth in the morning.08/23/2024ctive hydrALAZINE (Apresoline) 50 mg tablet Take 50 mg by mouth if needed in the morning, at noon, and at bedtime.08/23/2024 Active QUEtiapine (SEROquel) 100 mg tablet Take 100 mg by mouth in the morning.10/07/2024ctive LORazepam (Ativan) 1 mg tablet TAKE 1 TABLET BY MOUTH THREE TIMES A DAY FOR 30 DAYS10/17/2024ctive spironolactone (Aldactone) 50 mg tablet Indications:Primary hypertensionTake 0.5 tablets (25 mg) by mouth in the morning.5Active Additional Information Patient taking differently: 12.5 mgoral Daily, Reported on 09/18/2025 magnesium oxide (Mag-Ox) 400 mg (241.3 mg magnesium) tablet Take 400 mg by mouth in the morning.5Active aspirin 81 mg EC tablet Indications:NSTEMI (non-ST elevated myocardial infarction) (CMS/HCC)Take 1 tablet (81 mg) by mouth in the morning. 30 tablet 11006/08/3853826Active clopidogrel (Plavix) 75 mg tablet Indications:NSTEMI (non-ST elevated myocardial infarction) (CMS/HCC),Chest pain Take 1 tablet (75 mg) by mouth in the morning. 30 tablet 110506Active carvedilol (Coreg) 12.5 mg tablet Indications:Primary hypertensionTake 2 tablets (25 mg) by mouth two times daily for 197 doses. 120 tablet 5Active isosorbide mononitrate ER (Imdur) 30 mg 24 hr tablet Indications:Coronary artery disease involving absentee-shawnee coronary artery of absentee-shawnee heart without angina pectorisTake 1 tablet (30 mg) by mouth in the morning. Do not crush or chew. 90 tablet ctive Active Problems ProblemNoted DateDiagnosed DateAbnormal magnetic resonance imaging study 06/25/2025quired fvlwxksjjybwtg71/04/2025ute non-ST segment elevation myocardial vrejnqzmjr78/04/2025llergic qeeayhistofitk23/04/2025arotid artery fobgkdyx46/04/2025ellulitis and abscess of face06/25/2025OVID-19006/25/2025 Derangement of knee06/25/20250059Pynxyqpu98/04/3345Qvrhn02/04/2025Former tobacco use 06/25/20252961Dsnuvhxarpb84/04/2025Inflamed seborrheic /04/2025Insomnia 06/25/2025Kidney stone06/25/2025Left ventricular ltpfbbhjary62/04/2025Mass of left adrenal gland06/25/20258074Jxfosbnu98/04/2025Obstructive sleep apnea06/25/2025 Paresthesia of upper limb06/25/2025Pulmonary zadgim2606/25/2025Skin sensation tkwfmvybaph18/04/6129Meernj31/04/2025bnormal stress ECG06/06/2025Secondary zbzptvraazwt55/18/2025 Assessment & Plan (06/07/2025 5:23 PM EDT): Optimize antihypertensives CODE STATUS full code Assessment & Plan (06/07/2025 4:13 AM EDT): Optimize antihypertensives CODE STATUS full code Adenoma of left adrenal gland01/09/2025Resistant wmeagsabueiv96/14/2024rimary gjkkwzydhcszn72/12/2024 Assessment & Plan (06/07/2025 5:23 PM EDT): - Continue Aldactone - December of this year: Cortisol: 3.6 and Aldosterone: 7.3 Assessment & Plan (06/07/2025 4:13 AM EDT): As above Depression, major, severe /14/2024anic uqiebnad50/14/2024 Eowogttkpfh53/20/2024oronary artery disease involving absentee-shawnee coronary artery of absentee-shawnee heart without angina eindziqy14/20/6254Xioxmcr69/09/2024Type 2 diabetes mellitus without complication, without long-term current use of insulin 06/30/2024 Assessment & Plan (06/07/2025 5:23 PM EDT): - Continue BG checks - Continue SSI while hospitalized - Continue Farxiga - Consider obtaining A1c Assessment & Plan (06/07/2025 4:13 AM EDT): Insulin Farxiga blood sugar Chest pain06/30/2024Elevated /09/6921Ekhgpghbzpudls60/09/2024NSTEMI (non-ST elevated myocardial infarction)06/29/2024 Assessment & Plan (06/07/2025 5:23 PM EDT): [...] cardiology to see patient QURESHI (dyspnea on exertion)05/26/20244351Orhnphouksnkaa41/05/2024Murmur, heart 05/26/20240612Hyuqma93/23/2019BV (bacterial vaginosis)10/18/2017Gastroesophageal reflux disease without jtxmyhvkyrq87/27/2017 Assessment & Plan (06/07/2025 5:23 PM EDT): - Continue protonix Assessment & Plan (06/07/2025 4:13 AM EDT): PPI Essential lejkmzfocylb72/27/2017TIA (transient ischemic attack)10/18/2017 Resolved Problems ProblemNoted DateDiagnosed DateResolved DateHypertensive ufgcjix5906/30/2024 07/11/2024therosclerosis of absentee-shawnee coronary artery of absentee-shawnee heart without angina lqvalvse30 Encounters DateTypeDepartmentCare UtfoVuekhfrkloa63/28/2025 10:45 AM EDTFollow-Up Kayy Maurer [facility] [address] [place] [address] Richa Grace MD Lung nodule (Primary Dx); Cigarette ppbaju6609/14/2025Orders Only [facility] [address] [place] [address] Caitlyn Jose MA Benign hypertensive heart disease without congestive heart failure (Primary Dx) 09/13/2025 3:48 PM EDT - 09/13/2025 11:59 PM EDTHospital Encounter [facility] [address] [place] [address] Lung nodule; Cigarette smoker Discharge Disposition: Home or Self Care ()09/11/2025Telephone [facility] [address] [place] [phone] Caitlyn Jose MA 09/06/2025Telephone [facility] [address] [place] [facility] [address] Cathie Harden MA from Last 3 Months Family History Medical HistoryRelationNameCommentsAccidental deathFatherLung cancerMotherLung cancerSisterRelationNameStatusCommentsBrotherAliveFatherDeceasedMotherDeceased SisterDeceased Social History Tobacco UseTypesPacks/DayYears UsedDateSmoking Tobacco: XtwblpShgxfvfylz7745103 - mokeless Tobacco: Never Tobacco Cessation:Counseling Given: Not Answered Alcohol UseStandard Drinks/WeekCommentsNot Currently0 (1 standard drink = 0.6 oz pure alcohol)Used to drink a lot on the weekendAHC UtilitiesAnswerDate Recorded In the past 12 months has the [employer], oil, or water [employer] threatened to shut off services in your home?No06/07/2025Humiliation, Afraid, Rape, and Kick questionnaireAnswerDate RecordedWithin the last year, have you been afraid of your partner or ex-partner?No09/18/2025Emotionally AbusedNot on file09/18/2025 Physically AbusedNot on file09/18/2025Sexually AbusedNot on file09/18/2025Social Connection and Isolation PanelAnswerDate RecordedIn a typical week, how many times do you talk on the phone with family, friends, or neighbors?More than three times a week07/11/2024How often do you get together with friends or relatives?More than three times a week07/11/2024How often do you attend catholic or sabianism services?Never07/11/2024o you belong to any clubs or organizations such as catholic groups, unions, fraternal or athletic groups, or school groups?No 07/11/2024How often do you attend meetings of the clubs or organizations you belong to?Never07/11/2024re you , , , , never , or living with a partner?Wzwgife5307/11/2024UDIT-CAnswerDate RecordedQ1: How often do you have a drink containing alcohol?Never07/11/2024Q2: How many drinks containing alcohol do you have on a typical day when you are drinking? Patient does not drink07/11/2024Q3: How often do you have six or more drinks on one occasion?Never07/11/2024Overall Financial Resource Strain (CARDIA)AnswerDate RecordedHow hard is it for you to pay for the very basics like food, housing, medical care, and heating?Not hard at all06/07/2025PHQ-2AnswerDate Recorded Patient Health Questionnaire-2 Ucfdn235Finblue mountain hospital, inc. [place] of Occupational Health - Occupational Stress QuestionnaireAnswerDate RecordedDo you feel stress - tense, restless, nervous, or anxious, or unable to sleep at night because your mind is troubled all the time - these days?Only a sqauds6807/11/2024Transportation AnswerDate RecordedIn the past 12 months, has lack [...] were you homeless or living in a halfway (including now)?Yes 06/07/2025Hunger Vital SignAnswerDate RecordedWithin the past 12 months, you worried that your food would run out before you got the money to buymore.Never true06/07/2025Ran Out of Food in the Last YearNot on file06/07/2025 CommentsNoSex and Gender InformationValueDate RecordedSex Assigned at Sjismp9206/22/2025 1:49 PM EDTLegal RjnMsvsyd83/29/2022 10:42 PM EDTGender CbihtlkoRbuabm46/01/2025 1:49 PM EDTSexual OrientationHeterosexual or Straight 06/22/2025 1:49 PM EDT Last Filed Vital Signs Vital SignReadingTime TakenCommentsBlood Bylorjpx031/7210 10:41 AM EDT Rnbhu587309/18/2025 10:41 AM DGAHbhgpqrwxrh88.6 ??C (97.8 ??F)09/18/2025 10:41 AM EDTRespiratory Ygnw866906/08/2025 12:00 PM EDTOxygen Usfxctoljs99%09/18/2025 10:41 AM EDTInhaled Oxygen Concentration--Nocxjx06 kg (207 lb 3.2 oz)09/18/2025 10:41 AM HBFVhqalk305 cm (5' 3 )09/18/2025 10:41 AM EDTBody Mass Index36. 10:41 AM EDT Plan of Treatment Health MaintenanceDue DateLast DoneCommentsCT Eabqsrslaakv1964Colonoscopy 1964Colorectal Cancer Ruzbdiydw1964Diabetes: Hemoglobin A1C 1964FIT-DNA1964FIT1964FOBT1964 4652Ppplcbrccxjwz1964 Diabetes: Retinopathy Vtoohpfzn10/29/1974Diabetes: Urine Protein Screening 1983Pneumococcal Vaccine: Pediatrics (0 to 5 Years) and At-Risk Patients (6 to 64 Years) (1 of 2 - PCV)1983Pap Smear1985Adult Tetanus 1986Cervical Cancer Cuseybfiq38/29/1994HPV/Kavoaa2106/19/1994Mammogram 2004Zoster Vaccines (1 of 2)2014COVID-19 Vaccine (3 - season)/, 03/11/2021Influenza Vaccine (#1)2025 11/07/2021, 10/25/2020, 09/20/2017Depression Iwisrjvtx23/28/774643HIB VaccinesAged OutNo longer eligible based on patient's age to complete this topic HPV VaccinesAged OutNo longer eligible based on patient's age to complete this topicIPV VaccinesAged OutNo longer eligible based on patient's age to complete this topicMeningococcal B VaccineAged OutNo longer eligible based on patient's age to complete this topicMeningococcal VaccineAged OutNo longer eligible based on patient's age to complete this topicRotavirus VaccinesAged OutNo longer eligible based on patient's age to complete this topic Medical Devices ImplantedTypeAreaManufacturerDevice IdentifierShelf Expiration DateModel / Serial / LotStentHolly Mr 2.75 X 20 - [id number] - [id number] Implanted:Qty: 1 on 06/30/2024 by Brunilda Cuellar [facility] Eluting [employer] [id number]/ [id number] / [id number] / [id number] Rosendo,[place] 4.0x12m - [id number] Implanted:Qty: 1 on 06/07/2025 by [facility]to [facility]: Heart[employer] [id number]/ [id number] / / [id number] Procedures Procedure NamePriorityDate/TimeAssociated DiagnosisCommentsLDCT LUNG SCREENING Qaznpoe4809/13/2025 4:00 PM EDT Lung nodule Cigarette smoker from Last 3 Months Results * LDCT lung screening (09/13/2025 4:00 [...] Armando Garcia. Authorizing ProviderResult TypeResult StatusMohamed Lesly BUCKNERIMDavid CT PROCEDURES Final Result from Last 3 Months Insurance Advance Directives * Full Code (Latest Code Status on File) Date ActivatedDate InactivatedComments06/07/2025 4:00 AM06/08/2025 5:04 PM * Full Code Date ActivatedDate InactivatedComments07/11/2024 12:18 PM07/12/2024 1:06 PM * Full Code Date ActivatedDate InactivatedComments06/30/2024 1:12 AM07/01/2024 2:41 PM Care Teams Team MemberRelationshipSpecialtyStart DateEnd Date Carlito Murillo MD [address] [place] [address] [facility]05/24/24
--- OUTSIDE RECORDS SUMMARY | 2025-09-27 13:06 | XMS_ITS | Encounter Summary ---
Author Organization [facility] Address [address] [place] [address] Care Team Providers Care Terrazzo Installer Name Role Phone Carlito Murillo MD Primary Care Provider [phone] Encounter Details DateTypeDepartmentCare Team (Latest Contact Info)Xmblnzxshcr27/21/2025Telephone [facility] [address] [place] [address] Caitlyn Jose MA Social History Tobacco UseTypesPacks/DayYears UsedDateSmoking Tobacco: MjkqgmGioawpyvyp1976077 - mokeless Tobacco: NeverAlcohol UseStandard Drinks/WeekCommentsNot Currently0 [...] times a week07/11/2024How often do you attend uatsdin or orthodox services?Never 07/11/2024o you belong to any clubs or organizations such as uatsdin groups, unions, fraternal or athletic groups, or school groups?No07/11/2024How often do you attend meetings of the clubs or organizations you belong to?Never07/11/2024 Are you , , , , never , or living with a partner?Ugkksvl3707/11/2024UDIT-CAnswerDate RecordedQ1: How often do you have a [...] heating?Not hard at all06/07/2025PHQ-2AnswerDate RecordedPatient Health Questionnaire-2 Iizbb94212/27/2023[facility] [place] [facility] - Occupational Stress QuestionnaireAnswerDate RecordedDo you feel stress - tense, restless, nervous, or anxious, or unable to sleep at night because yourmind is troubled all the time - these days?Only a mvlqtm9107/11/2024TransportationAnswer Date RecordedIn the past 12 months, has [...] were you homeless or living in a jail (including now)?Yes 06/07/2025Hunger Vital SignAnswerDate RecordedWithin the past 12 months, you worried that your food would run out before you got the money to buymore.Never true06/07/2025Ran Out of Food in the Last YearNot on file06/07/2025 CommentsNoSex and Gender InformationValueDate RecordedSex Assigned at Enshxg0906/22/2025 1:49 PM EDTLegal DuhSzhsxm20/29/2022 10:42 PM EDTGender IzinlzdcNvejfm24/01/2025 1:49 PM EDTSexual OrientationHeterosexual or Straight 06/22/2025 1:49 PM EDTdocumented as of this encounter Miscellaneous Notes * Telephone Encounter - Caitlyn Jose MA - 09/11/2025 1:08 PM EDT Marty from cardiac rehab came to the office today to make you aware of patient's recent weight gain over the weekend. At first it was 7#, then she must've lost a few and it was a total of 4# weight gain. I confirmed with patient she's taking spironolactone 12.5mg daily. She did c/o to Marty about increased SOB and he said she has been having some LE edema. Any recommendations? Please advise. Thanks. documented in this encounter Plan of Treatment Not on file documented as of this encounter Visit Diagnoses Not on filedocumented in this encounter Care Teams Team MemberRelationshipSpecialtyStart DateEnd Date Carlito Murillo MD [address] [facility] [place] [place] [address] PCP - General05/24/24documented as of this encounter
--- OUTSIDE RECORDS SUMMARY | 2025-09-27 13:07 | XMS_ITS | Patient Health Record ---
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 Name Role Phone Amadou Murillo Primary Care Provider [phone] Omar Mares Unavailable [phone] Allergies Allergen (clinical drug ingredient) Drug/Non Drug Allergy documented on EMR Reaction Allergy Type Onset Date Status amlodipine Norvasc visual changes Drug Allergy ActivealprazolamXanaxmental status changesDrug AllergyActivelisinoprilLisinopril UnknownDrug AllergyActive Results Component Value Reference Range Notes MAGNESIUM Reviewed date:03/30/2025 01:10:37 PM Interpretation: Performing Lab: Notes/Report: [facility] , Magnesium 1.2 1.8-2.4 mg/dL Performing Lab:see noteML - [facility] LBPROF CHEM 8 (BAS METB) Reviewed date:04/09/2025 12:47:28 PM Interpretation: Performing Lab: Notes/Report: [facility] ,Cfptuv060367-730 mmol/LPotassium3.53.5-5.1 mmol/WEndafrwy16294-249 mmol/LCarbon Osiauxz33.021.0-32.0 mmol/LAnion Gap9.3Ycumnmx54632-251 mg/dLBlood Urea Nitrogen 17.07.0-18.0 mg/dLCreatinine1.110.55-1.02 mg/dLEstimated GFR ( Candace>60 >=60 mL/min/1.73m 2Estimated GFR (Non- Ame50>=60 mL/min/1.73m 2BUN Creatinine Ratio15.1Iejrcva4.88.5-10.1 mg/dLPerforming Lab:see noteML - [facility] LBCBC AUTO DIFF Reviewed date:09/28/2024 08:19:49 PM Interpretation: Performing Lab: Notes/Report: [facility] ,White Blood Count6.64.0-11.0 10 3/uLRed Blood Count4.394.20-5.40 10 6/uL Ngejdhdlll31.812.0-16.0 g/sEIrkqppnekg81.436.0-48.0 %Mean Corpuscular Iosjdr94.2 81.0-99.0 fLMean Corpuscular Zeqktmhcba62.926.7-34.0 pgMean Corpuscular HGB Conc 31.629.9-35.2 g/dLRed Cell Distribution Width15.311.0-15.0 %Platelet Hyxnc507 150-450 10 3/uLMean Platelet Volume9.79.5-13.5 fLNeutrophils Percent Auto65.0 43.0-75.0 %Lymphocytes Percent Auto22.320.5-60.0 %Monocytes Percent Auto7.81.7- 12.0 %Eosinophils Percent Auto3.80.9-7.0 %Basophils Percent Auto0.90.2-2.0 % Immature Granulocytes Pct Auto0.20.0-0.5 %Neutrophils Absolute Auto4.31.4-6.5 10 3/uLLymphocytes Absolute Auto1.51.2-3.8 10 3/uLMonocytes Absolute Auto0.50.3-0.8 10 3/uLEosinophils Absolute Auto0.30.0-0.7 10 3/uLBasophils Absolute Auto0.10.0- 0.1 10 3/uLImmature Granulocytes Abs Auto0.010.00-0.03 10 3/uLPerforming Lab:see noteML - [facility] LBPROF 14(COMP METB) Reviewed date:09/28/2024 08:19:49 PM Interpretation: Performing Lab: Notes/Report: [facility] ,Giagih562200-658 mmol/LPotassium3.43.5-5.1 mmol/GJvmktizg19399-720 mmol/LCarbon Esiagde61.021.0-32.0 mmol/LAnion Gap12.7Gbynxyf16067-946 mg/dLBlood Urea Ciqzecbi53.07.0-18.0 mg/dLCreatinine1.110.55-1.02 mg/dLEstimated GFR ( Candace>60>=60 mL/min/1.73m 2Estimated GFR (Non- Ame50>=60 mL/min/1.73m 2 BUN Creatinine Ratio10.6Nerfems7.08.5-10.1 mg/dLBilirubin Total0.40.2-1.0 mg/dL Aspartate Amino Ydimzdioeof3821-75 U/LAlanine Hzrwnwmzvfscawef3283-20 U/L Alkaline Uqlcxjsxjrt1343-578 U/LTotal Protein6.66.4-8.2 g/dLAlbumin Level3.33.4- 5.0 g/dLGlobulin3.3Albumin Globulin Ratio1.0Performing Lab:see noteML - [facility] LBTroponin I High Sensitivity Reviewed date:09/28/2024 08:19:49 PM Interpretation: Performing Lab: Notes/Report: [facility] ,Troponin I High Sensitivity9.74.0-51.3 pg/mL CUT-OFF POINTS HAVE BEEN ESTABLISHED BASED ON THE FOURTH UNIVERSAL DEFINITION OF MYOCARDIAL INFARCTION. THE UPPER REFERENCE LIMIT (URL) OF TROPONIN, DEFINED THE 99TH PERCENTILE OF cTnI DISTRIBUTION IN A REFERENCE POPULATION, HAS BEEN CONFIRMED THE DECISION THRESHOLD FOR DE DIAGNOSIS. 99TH PERCENTILE = 51.4 PG/ML NOTE: HIGH-SENSITIVITY TROPONIN ASSAY IS NOT INTENDED TO BE USED IN ISOLATION BUT SHOULD BE INTERPRETED IN CONJUNCTION WITH OTHER DIAGNOSTIC AND CLINICAL INFORMATION. Performing Lab:see noteML - [facility] NYIRNW-NsJ-5 Ag* Reviewed date:09/28/2024 08:19:49 PM Interpretation: Performing Lab: Notes/Report: [facility] ,SARS-CoV-2 AgNEGATIVENEGATIVE This test has not been FDA cleared [...] terminated or authorization is revoked sooner. Performing Lab:see noteML - [facility] LBECG 12 lead Reviewed date:09/30/2024 04:08:40 PM Interpretation: Performing Lab: Notes/Report: Source Facility: [place] [address] [place] [address] Electrocardiograph Report Signed Patient: ABY MADRIGAL MR#: [id number] : 1965 Acct:[id number] Age/Sex: 59 / F ADM Date: 09/28/24 Loc: ER Attending Dr: Ordering Physician: Carla Greenwood D.O. Date of Service: 09/28/24 Procedure(s): ECG 12 lead Accession Number(s): [id number] cc: [facility] Test Date: 2024-09-28 Pat Name: ABY MADRIGAL Department: Room: - Gender: Female Nurse Emergency Room: : 1965 Requested By: KENDRA MURILLO Order Number: [id number] Reading MD: KENDRA MURILLO Measurements Intervals [place] Rate: 72 P: 53 DE: 172 QRS: 22 QRSD: 90 T: 53 [...] Signed By: 09/29/24 0602 DD/ 1229 TD/TT: Personal Banking Advisor:CT head/brain wo con Reviewed date:09/28/2024 08:19:49 PM Interpretation: Performing Lab: Notes/Report: Source Facility: [place] [address] [place] [address] CT Scan Report Signed Patient: ABY MADRIGAL MR#: [id number] : 1965 Acct:[id number] Age/Sex: 59 / F ADM Date: 09/28/24 Loc: ER Attending Dr: Ordering Physician: Carla Greenwood D.O. Date of Service: 09/28/24 Procedure(s): CT head/brain wo con Accession Number(s): [id number] cc: Kendra Murillo M.D. [facility] [place] [address] Patient Name: ABY MADRIGAL MRN: [id number] date: 1965 Sex: F Assigned Patient Location: ER Current Patient Location: ED.MAIN Accession/Order Number: [id number] Exam Date: 09/28/2024 12:41 Report Date: 09/28/2024 [...] Bhakta M.D. Signed By: 09/28/24 1345 DD/ 134 TD/TT: Personal Banking Advisor:XR chest 1V Reviewed date:09/28/2024 08:19:49 PM Interpretation: Performing Lab: Notes/Report: Source Facility: [place] [address] XRay Report Signed Patient: ABY MADRIGAL MR#: [id number] : 1965 Acct:[id number] Age/Sex: 59 / F ADM Date: Loc: ER Attending Dr: Ordering Physician: Carla Greenwood D.O. Date of Service: 09/28/24 Procedure(s): XR chest 1V Accession Number(s): [id number] cc: Kendra Murillo M.D.; Carla Greenwood D.O. [place] [address] Patient Name: ABY MADRIGAL MRN: [id number] date: 1965 Sex: F Assigned Patient Location: ER Current Patient Location: ER Accession/Order Number: [id number] Exam Date: 09/28/2024 12:41 Report Date: 09/28/2024 [...] new since prior study. Electronically authenticated by: OJSE WHEELER Date: 09/28/2024 13:05 Dictated By: Jose Wheeler M.D. Signed By: 09/28/24 1307 DD/ 1305 TD/TT: Personal Banking Advisor:BNP Reviewed date:10/16/2024 08:40:23 PM Interpretation: Performing Lab: Notes/Report: [facility] ,NT Pro B Type Natriuretic Xvgg005.0<=900.0 pg/mLPerforming Lab:see noteML - [facility] LBCBC AUTO DIFF Reviewed date:10/16/2024 08:40:23 PM Interpretation: Performing Lab: Notes/Report: [facility] ,White Blood Count6.74.0-11.0 10 3/uLRed Blood Count4.574.20-5.40 10 6/uL Emkzqwhngl37.112.0-16.0 g/oUAjcilfcrnk33.636.0-48.0 %Mean Corpuscular Fehizl64.5 81.0-99.0 fLMean Corpuscular Yqinncstal09.526.7-34.0 pgMean Corpuscular HGB Conc 31.329.9-35.2 g/dLRed Cell Distribution Width15.211.0-15.0 %Platelet Vvjfh082 150-450 10 3/uLMean Platelet Cojyak34.39.5-13.5 fLNeutrophils Percent Auto57.5 43.0-75.0 %Lymphocytes Percent Auto30.720.5-60.0 %Monocytes Percent Auto7.01.7- 12.0 %Eosinophils Percent Auto3.70.9-7.0 %Basophils Percent Auto1.00.2-2.0 % Immature Granulocytes Pct Auto0.10.0-0.5 %Neutrophils Absolute Auto3.91.4-6.5 10 3/uLLymphocytes Absolute Auto2.11.2-3.8 10 3/uLMonocytes Absolute Auto0.50.3-0.8 10 3/uLEosinophils Absolute Auto0.30.0-0.7 10 3/uLBasophils Absolute Auto0.10.0- 0.1 10 3/uLImmature Granulocytes Abs Auto0.010.00-0.03 10 3/uLPerforming Lab:see noteML - [facility] LBPROF 14(COMP METB) Reviewed date:10/16/2024 08:40:23 PM Interpretation: Performing Lab: Notes/Report: [facility] ,Qlivaf585025-049 mmol/LPotassium3.73.5-5.1 mmol/WTrfvtzfw54135-207 mmol/LCarbon Vksjpps74.321.0-32.0 mmol/LAnion Gap17.0Foiyctn98285-079 mg/dLBlood Urea Xykbwlxh19.07.0-18.0 mg/dLCreatinine1.170.55-1.02 mg/dLEstimated GFR ( Wwwfuzq69>=60 mL/min/1.73m 2Estimated GFR (Non- Ame47>=60 mL/min/1.73m 2 BUN Creatinine Ratio13.0Mrinxhf1.28.5-10.1 mg/dLBilirubin Total0.30.2-1.0 mg/dL Aspartate Amino Skirtkatpbo1026-98 U/LAlanine Ynzlinbitnaesiny4931-36 U/L Alkaline Lanhcqsoxxn2041-670 U/LTotal Protein6.76.4-8.2 g/dLAlbumin Level3.53.4- 5.0 g/dLGlobulin3.2Albumin Globulin Ratio1.1Performing Lab:see noteML - [facility] LBPTT Reviewed date:10/16/2024 08:40:23 PM Interpretation: Performing Lab: Notes/Report: [facility] ,Partial Thromboplastin Time38.922.3-36.2 secPerforming Lab:see note - [facility] LBProthrombin Time INR Reviewed date:10/16/2024 08:40:23 PM Interpretation: Performing Lab: Notes/Report: [facility] ,Prothrombin Time9.89.0-11.6 secINR<0.93 DESIRED INR: 2.0-3.0 CONDITIONS NOT LISTED BELOW 2.5-3.5 FOR PROSTHETIC HEART VALVE REPLACEMENT 2.5-3.5 RECURRENT THROMBOSIS Performing Lab:see noteML - [facility] LBTroponin I High Sensitivity Reviewed date:10/16/2024 08:40:23 PM Interpretation: Performing Lab: Notes/Report: [facility] ,Troponin I High Sensitivity8.64.0-51.3 pg/mL CUT-OFF POINTS HAVE BEEN ESTABLISHED BASED ON THE FOURTH UNIVERSAL DEFINITION OF MYOCARDIAL INFARCTION. THE UPPER REFERENCE LIMIT (URL) OF TROPONIN, DEFINED THE 99TH PERCENTILE OF cTnI DISTRIBUTION IN A REFERENCE POPULATION, HAS BEEN CONFIRMED THE DECISION THRESHOLD FOR DE DIAGNOSIS. 99TH PERCENTILE = 51.4 PG/ML NOTE: HIGH-SENSITIVITY TROPONIN ASSAY IS NOT INTENDED TO BE USED IN ISOLATION BUT SHOULD BE INTERPRETED IN CONJUNCTION WITH OTHER DIAGNOSTIC AND CLINICAL INFORMATION. Performing Lab:see noteML - [facility] LBECG 12 lead Reviewed date:10/18/2024 06:07:04 PM Interpretation: Performing Lab: Notes/Report: Source Facility: [place] [address] [place] [address] Electrocardiograph Report Signed Patient: ABY MADRIGAL MR#: [id number] : 1965 Acct:[id number] Age/Sex: 59 / F ADM Date: 10/15/24 Loc: ER Attending Dr: Ordering Physician: Julienne Ruth Date of Service: 10/15/24 Procedure(s): ECG 12 lead Accession Number(s): [id number] cc: [facility] Test Date: 2024-10-15 Pat Name: ABY MADRIGAL Department: Room: - Gender: Female Nurse Emergency Room: : 1965 Requested By: KENDRA MURILLO Order Number: [id number] Reading MD: AGUILAR MAC Measurements Intervals [place] Rate: 72 P: 49 DE: 176 QRS: 15 QRSD: 88 T: 150 [...] D.O. Signed By: 10/17/242019 DD/ 55 TD/TT: Personal Banking Advisor:ITP Reviewed date:11/08/2024 04:14:57 PM Interpretation: Performing Lab: Notes/Report: Source [place] [address] [place] [address] Cardiac Rehab Report Signed Patient: ABY MADRIGAL MR#: [id number] : 1965 Acct:[id number] Age/Sex: 59 / F ADM Date: 11/06/24 Loc: CR Attending Dr: GOMEZ JAY Ordering Physician: GOMEZ JAY Date of Service: 11/07/24 Procedure(s): ITP Accession Number(s): [id number] cc: [facility] Test Date: 2024-11-07 Pat Name: ABY MADRIGAL Department: Room: - Gender: Female Nurse Emergency Room: : 1965 Requested By: GOMEZ JAY M.D. Order Number: [id number] Reading MD: AGUILAR MAC Interpretive Statements Session Date: Electronically Signed On 11-07-2024 20:11:30 EST by AGUILAR MAC Dictated By: Aguilar Mac D.O. Signed By: 11/07/24201011/07/242010 DD/ 0950 TD/TT: Personal Banking Advisor:BNP Reviewed date:11/12/2024 02:05:43 PM Interpretation: Performing Lab: Notes/Report: [facility] ,NT Pro B Type Natriuretic Utoc624.0<=900.0 pg/mLPerforming Lab:see noteML - [facility] LBCBC AUTO DIFF Reviewed date:11/12/2024 02:05:43 PM Interpretation: Performing Lab: Notes/Report: [facility] ,White Blood Count6.44.0-11.0 10 3/uLRed Blood Count4.504.20-5.40 10 6/uL Lxatfjqwqi40.712.0-16.0 g/pZWlwdnlqdrd06.636.0-48.0 %Mean Corpuscular Ddifif43.6 81.0-99.0 fLMean Corpuscular Qqcaqqtheq23.026.7-34.0 pgMean Corpuscular HGB Conc 31.129.9-35.2 g/dLRed Cell Distribution Width15.511.0-15.0 %Platelet Mhonj439 150-450 10 3/uLMean Platelet Ovajna98.19.5-13.5 fLNeutrophils Percent Auto63.7 43.0-75.0 %Lymphocytes Percent Auto22.720.5-60.0 %Monocytes Percent Auto8.51.7- 12.0 %Eosinophils Percent Auto4.00.9-7.0 %Basophils Percent Auto0.80.2-2.0 % Immature Granulocytes Pct Auto0.30.0-0.5 %Neutrophils Absolute Auto4.11.4-6.5 10 3/uLLymphocytes Absolute Auto1.51.2-3.8 10 3/uLMonocytes Absolute Auto0.60.3-0.8 10 3/uLEosinophils Absolute Auto0.30.0-0.7 10 3/uLBasophils Absolute Auto0.10.0- 0.1 10 3/uLImmature Granulocytes Abs Auto0.020.00-0.03 10 3/uLPerforming Lab:see noteML - [facility] LBLIPASE Reviewed date:11/12/2024 02:05:43 PM Interpretation: Performing Lab: Notes/Report: [facility] ,Olqtwv93.016.0-77.0 U/LPerforming Lab:see noteML - [facility] LBPROF 14(COMP METB) Reviewed date:11/12/2024 02:05:43 PM Interpretation: Performing Lab: Notes/Report: [facility] ,Fcmzwa505444-978 mmol/LPotassium3.33.5-5.1 mmol/VAqcoqgyl00326-834 mmol/LCarbon Sjidfvz90.021.0-32.0 mmol/LAnion Gap14.7Eybrclt18877-151 mg/dLBlood Urea Sgxyfpzf58.07.0-18.0 mg/dLCreatinine1.210.55-1.02 mg/dLEstimated GFR ( Mjxifnd01>=60 mL/min/1.73m 2Estimated GFR (Non- Ame45>=60 mL/min/1.73m 2 BUN Creatinine Ratio14.4Qkmsmzx6.68.5-10.1 mg/dLBilirubin Total0.30.2-1.0 mg/dL Aspartate Amino Fuuyjgkjpzr2164-79 U/LAlanine Meavcqooxjqavzre9663-93 U/L Alkaline Msqcvwhulvf5711-392 U/LTotal Protein6.76.4-8.2 g/dLAlbumin Level3.43.4- 5.0 g/dLGlobulin3.3Albumin Globulin Ratio1.0Performing Lab:see noteML - [facility] LBTroponin I High Sensitivity Reviewed date:11/12/2024 02:05:43 PM Interpretation: Performing Lab: Notes/Report: [facility] ,Troponin I High Skxsftxuzgt46.54.0-51.3 pg/mL RESULTS CALLED TO DR JONES AT 0730 CUT-OFF POINTS HAVE BEEN ESTABLISHED BASED ON THE FOURTH UNIVERSAL DEFINITION OF MYOCARDIAL INFARCTION. THE UPPER REFERENCE LIMIT (URL) OF TROPONIN, DEFINED THE 99TH PERCENTILE OF cTnI DISTRIBUTION IN A REFERENCE POPULATION, HAS BEEN CONFIRMED THE DECISION THRESHOLD FOR DE DIAGNOSIS. 99TH PERCENTILE = 51.4 PG/ML NOTE: HIGH-SENSITIVITY TROPONIN ASSAY IS NOT INTENDED TO BE USED IN ISOLATION BUT SHOULD BE INTERPRETED IN CONJUNCTION WITH OTHER DIAGNOSTIC AND CLINICAL INFORMATION. Performing Lab:see noteML - [facility] LBXR chest 1V Reviewed date:11/12/2024 02:05:43 PM Interpretation: Performing Lab: Notes/Report: Source Facility: [place] [address] XRay Report Signed Patient: ABY MADRIGAL MR#: [id number] : 1965 Acct:[id number] Age/Sex: 59 / F ADM Date: 11/12/24 Loc: ER Attending Dr: Ordering Physician: Elie Zabala Date of Service: 11/12/24 Procedure(s): XR chest 1V Accession Number(s): [id number] cc: Kendra Murillo M.D.; Elie Zabala [place] [address] Patient Name: ABY MADRIGAL MRN: [id number] date: 1965 Sex: F Assigned Patient Location: ER Current Patient Location: ER Accession/Order Number: [id number] Exam Date: 11/12/2024 06:50 Report Date: 11/12/2024 [...] M.D. Signed By: 11/12/24708 DD/ 5 TD/TT: Personal Banking Advisor:Troponin I High Sensitivity Reviewed date:11/12/2024 02:05:43 PM Interpretation: Performing Lab: Notes/Report: [facility] ,Troponin I High Fvytegluwtr14.14.0-51.3 pg/mL RESULTS CALLED TO SHANI SAAVEDRA RN AT 0901 CUT-OFF POINTS HAVE BEEN ESTABLISHED BASED ON THE FOURTH UNIVERSAL DEFINITION OF MYOCARDIAL INFARCTION. THE UPPER REFERENCE LIMIT (URL) OF TROPONIN, DEFINED THE 99TH PERCENTILE OF cTnI DISTRIBUTION IN A REFERENCE POPULATION, HAS BEEN CONFIRMED THE DECISION THRESHOLD FOR DE DIAGNOSIS. 99TH PERCENTILE = 51.4 PG/ML NOTE: HIGH-SENSITIVITY TROPONIN ASSAY IS NOT INTENDED TO BE USED IN ISOLATION BUT SHOULD BE INTERPRETED IN CONJUNCTION WITH OTHER DIAGNOSTIC AND CLINICAL INFORMATION. Performing Lab:see noteML - [facility] LBTroponin I High Sensitivity Reviewed date:11/12/2024 02:05:43 PM Interpretation: Performing Lab: Notes/Report: Comment do a total of 4 please [facility] ,Troponin I High Lgogjigdbyg67.34.0-51.3 pg/mL 99TH PERCENTILE = 51.4 PG/ML NOTE: [...] HAS BEEN CONFIRMED THE DECISION THRESHOLD FOR DE DIAGNOSIS. Performing Lab:see noteML - [facility] LBBNP Reviewed date:11/26/2024 08:40:04 PM Interpretation: Performing Lab: Notes/Report: [facility] ,NT Pro B Type Natriuretic Tsym738.0<=900.0 pg/mLPerforming Lab:see noteML - [facility] LBCBC AUTO DIFF Reviewed date:11/26/2024 08:40:04 PM Interpretation: Performing Lab: Notes/Report: [facility] ,White Blood Count6.24.0-11.0 10 3/uLRed Blood Count4.644.20-5.40 10 6/uL Vltjqstrhz04.912.0-16.0 g/tOYvopujvfwn14.336.0-48.0 %Mean Corpuscular Zzadki19.5 81.0-99.0 fLMean Corpuscular Hitzcafpil72.626.7-34.0 pgMean Corpuscular HGB Conc 31.129.9-35.2 g/dLRed Cell Distribution Width15.811.0-15.0 %Platelet Nhfco170 150-450 10 3/uLMean Platelet Volume9.79.5-13.5 fLNeutrophils Percent Auto68.2 43.0-75.0 %Lymphocytes Percent Auto21.120.5-60.0 %Monocytes Percent Auto6.61.7- 12.0 %Eosinophils Percent Auto3.20.9-7.0 %Basophils Percent Auto0.60.2-2.0 % Immature Granulocytes Pct Auto0.30.0-0.5 %Neutrophils Absolute Auto4.21.4-6.5 10 3/uLLymphocytes Absolute Auto1.31.2-3.8 10 3/uLMonocytes Absolute Auto0.40.3-0.8 10 3/uLEosinophils Absolute Auto0.20.0-0.7 10 3/uLBasophils Absolute Auto0.00.0- 0.1 10 3/uLImmature Granulocytes Abs Auto0.020.00-0.03 10 3/uLPerforming Lab:see noteML - [facility] LBMAGNESIUM Reviewed date:11/26/2024 08:40:04 PM Interpretation: Performing Lab: Notes/Report: [facility] ,Magnesium2.11.8-2.4 mg/dLPerforming Lab:see noteML - [facility] LB PROF CHEM 8 (BAS METB) Reviewed date:11/26/2024 08:40:04 PM Interpretation: Performing Lab: Notes/Report: [facility] ,Yvaynf174787-760 mmol/LPotassium3.73.5-5.1 mmol/WNbwybxkf09000-043 mmol/LCarbon Lgkyjma69.021.0-32.0 mmol/LAnion Gap15.1Elsbmmp96614-992 mg/dLBlood Urea Bxyvrekc43.07.0-18.0 mg/dLCreatinine1.040.55-1.02 mg/dLEstimated GFR ( Candace>60>=60 mL/min/1.73m 2Estimated GFR (Non- Ame54>=60 mL/min/1.73m 2 BUN Creatinine Ratio14.6Ahzxqep4.68.5-10.1 mg/dLPerforming Lab:see noteML - [facility] LBTroponin I High Sensitivity Reviewed date:11/26/2024 08:40:04 PM Interpretation: Performing Lab: Notes/Report: [facility] ,Troponin I High Sensitivity6.24.0-51.3 pg/mL CUT-OFF POINTS HAVE BEEN ESTABLISHED BASED ON THE FOURTH UNIVERSAL DEFINITION OF MYOCARDIAL INFARCTION. THE UPPER REFERENCE LIMIT (URL) OF TROPONIN, DEFINED THE 99TH PERCENTILE OF cTnI DISTRIBUTION IN A REFERENCE POPULATION, HAS BEEN CONFIRMED THE DECISION THRESHOLD FOR DE DIAGNOSIS. 99TH PERCENTILE = 51.4 PG/ML NOTE: HIGH-SENSITIVITY TROPONIN ASSAY IS NOT INTENDED TO BE USED IN ISOLATION BUT SHOULD BE INTERPRETED IN CONJUNCTION WITH OTHER DIAGNOSTIC AND CLINICAL INFORMATION. Performing Lab:see noteML - [facility] LBECG 12 lead Reviewed date:11/27/2024 08:32:57 PM Interpretation: Performing Lab: Notes/Report: Source Facility: [facility]-[address] [place] [address] [place] [address] Electrocardiograph Report Signed Patient: ABY MADRIGAL MR#: [id number] : 1965 Acct:[id number] Age/Sex: 59 / F ADM Date: 11/25/24 Loc: ER Attending Dr: Ordering Physician: Donald Hoskins D.O. Date of Service: 11/25/24 Procedure(s): ECG 12 lead Accession Number(s): [id number] cc: [facility] Test Date: 2024-11-25 Pat Name: ABY MADRIGAL Department: Room: - Gender: Female Nurse Emergency Room: : 1965 Requested By: KENDRA MURILLO Order Number: [id number] Reading MD: AGUILAR MAC Measurements Intervals [place] Rate: 73 P: 46 DE: 206 QRS: -2 QRSD: 90 T: 120 [...] D.O. Signed By: 11/27/242023 DD/ 1015 TD/TT: Personal Banking Advisor:NADIA chest 1V Reviewed date:11/26/2024 08:40:04 PM Interpretation: Performing Lab: Notes/Report: Source Facility: [place] [address] XRay Report Signed Patient: ABY MADRIGAL MR#: [id number] : 1965 Acct:[id number] Age/Sex: 59 / F ADM Date: 11/25/24 Loc: ER Attending Dr: Ordering Physician: Donald Hoskins D.O. Date of Service: 11/25/24 Procedure(s): XR chest 1V Accession Number(s): [id number] cc: Donald Hoskins D.O.; Kendra Murillo M.D. [place] [address] Patient Name: ABY MADRIGAL MRN: [id number] date: 1965 Sex: F Assigned Patient Location: ER Current Patient Location: ER Accession/Order Number: [id number] Exam Date: 11/25/2024 10:52 Report Date: 11/25/2024 [...] Signed By: 11/25/24 1130 DD/ 1127 TD/TT: Personal Banking Advisor:JULIANN Reviewed date:12/07/2024 01:55:15 PM Interpretation: Performing Lab: Notes/Report: Source Facility: [place] [address] Cardiac Rehab Report Signed Patient: ABY MADRIGAL MR#: [id number] : 1965 Acct:[id number] Age/Sex: 59 / F ADM Date: 12/06/24 Loc: CR Attending Dr: GOMEZ JAY Ordering Physician: Aguilar Mac D.O. Date of Service: 12/06/24 Procedure(s): ITP Accession Number(s): [id number] cc: [facility] Test Date: 2024-12-06 Pat Name: ABY MADRIGAL Department: Room: - Gender: Female Nurse Emergency Room: : 1965 Requested By: AGUILAR MAC Order Number: [id number] Reading MD: AGUILAR MAC Interpretive Statements Session Date: Electronically Signed On 12-06-2024 20:54:07 EST by AGUILAR MAC Dictated By: Aguilar Mac D.O. Signed By: 12/06/242053 DD/ 0939 TD/TT: Personal Banking Advisor:ITP Reviewed date:01/06/2025 02:27:02 PM Interpretation: Performing Lab: Notes/Report: Source Facility: [facility]-[address] [place] [address] [place] [address] Cardiac Rehab Report Signed Patient: ABY MADRIGAL MR#: [id number] : 1965 Acct:[id number] Age/Sex: 59 / F ADM Date: 01/05/25 Loc: CR Attending Dr: GOMEZ JAY Ordering Physician: GOMEZ JAY Date of Service: 01/05/25 Procedure(s): ITP Accession Number(s): [id number] cc: [facility] Test Date: 2025-01-05 Pat Name: ABY MADRIGAL Department: Room: - Gender: Female Nurse Emergency Room: : 1965 Requested By: GOMEZ JAY M.D. Order Number: [id number] Reading MD: AGUILAR MAC Interpretive Statements Session Date: Electronically Signed On 01-06-2025 8:46:05 EST by AGUILAR MAC Dictated By: Aguilar Mac D.O. Signed By: 01/06/2584501/06/25845 DD/ 100 TD/TT: Personal Banking Advisor:BNP Reviewed date:01/31/2025 06:41:07 PM Interpretation: Performing Lab: Notes/Report: [facility] ,NT Pro B Type Natriuretic Rmyi084.0<=900.0 pg/mLPerforming Lab:see noteML - [facility] LBCBC AUTO DIFF Reviewed date:01/31/2025 06:41:07 PM Interpretation: Performing Lab: Notes/Report: [facility] ,White Blood Count6.54.0-11.0 10 3/uLRed Blood Count4.584.20-5.40 10 6/uL Cjxyvbklby89.912.0-16.0 g/tZYblbuiucil61.836.0-48.0 %Mean Corpuscular Gmvkjw16.5 81.0-99.0 fLMean Corpuscular Oasmkkpkjj75.026.7-34.0 pgMean Corpuscular HGB Conc 31.529.9-35.2 g/dLRed Cell Distribution Width15.611.0-15.0 %Platelet Ajzle342 150-450 10 3/uLMean Platelet Volume9.99.5-13.5 fLNeutrophils Percent Auto52.6 43.0-75.0 %Lymphocytes Percent Auto37.220.5-60.0 %Monocytes Percent Auto6.61.7- 12.0 %Eosinophils Percent Auto2.60.9-7.0 %Basophils Percent Auto0.80.2-2.0 % Immature Granulocytes Pct Auto0.20.0-0.5 %Neutrophils Absolute Auto3.41.4-6.5 10 3/uLLymphocytes Absolute Auto2.41.2-3.8 10 3/uLMonocytes Absolute Auto0.40.3-0.8 10 3/uLEosinophils Absolute Auto0.20.0-0.7 10 3/uLBasophils Absolute Auto0.10.0- 0.1 10 3/uLImmature Granulocytes Abs Auto0.010.00-0.03 10 3/uLPerforming Lab:see noteML - [facility] LBLIPASE Reviewed date:01/31/2025 06:41:07 PM Interpretation: Performing Lab: Notes/Report: [facility] ,Rzistj11.016.0-77.0 U/LPerforming Lab:see noteML - [facility] LBPROF 14(COMP METB) Reviewed date:01/31/2025 06:41:08 PM Interpretation: Performing Lab: Notes/Report: [facility] ,Dmpmgn742166-414 mmol/LPotassium3.53.5-5.1 mmol/TQjsgpgna58104-066 mmol/LCarbon Oovqnwb19.621.0-32.0 mmol/LAnion Gap13.4Tbseuaq11983-289 mg/dLBlood Urea Wblqbczy75.07.0-18.0 mg/dLCreatinine1.520.55-1.02 mg/dLEstimated GFR ( Pnzufpk10>=60 mL/min/1.73m 2Estimated GFR (Non- Ame35>=60 mL/min/1.73m 2 BUN Creatinine Ratio19.9Noodyrq3.28.5-10.1 mg/dLBilirubin Total0.30.2-1.0 mg/dL Aspartate Amino Cxodxpvgzhh9743-14 U/LAlanine Ulxjpmaadfprzkwn7388-01 U/L Alkaline Asoojyihjit4145-807 U/LTotal Protein6.96.4-8.2 g/dLAlbumin Level3.53.4- 5.0 g/dLGlobulin3.4Albumin Globulin Ratio1.0Performing Lab:see noteML - [facility] LBTroponin I High Sensitivity Reviewed date:01/31/2025 06:41:08 PM Interpretation: Performing Lab: Notes/Report: [facility] ,Troponin I High Sensitivity9.34.0-51.3 pg/mL CUT-OFF POINTS HAVE BEEN ESTABLISHED BASED ON THE FOURTH UNIVERSAL DEFINITION OF MYOCARDIAL INFARCTION. THE UPPER REFERENCE LIMIT (URL) OF TROPONIN, DEFINED THE 99TH PERCENTILE OF cTnI DISTRIBUTION IN A REFERENCE POPULATION, HAS BEEN CONFIRMED THE DECISION THRESHOLD FOR DE DIAGNOSIS. 99TH PERCENTILE = 51.4 PG/ML NOTE: HIGH-SENSITIVITY TROPONIN ASSAY IS NOT INTENDED TO BE USED IN ISOLATION BUT SHOULD BE INTERPRETED IN CONJUNCTION WITH OTHER DIAGNOSTIC AND CLINICAL INFORMATION. Performing Lab:see note - [facility] LBECG 12 lead Reviewed date:01/31/2025 06:41:08 PM Interpretation: Performing Lab: Notes/Report: Source Facility: [place] [address] Electrocardiograph Report Signed Patient: ABY MADRIGAL MR#: [id number] : 1965 Acct:[id number] Age/Sex: 59 / F ADM Date: 01/31/25 Loc: ER Attending Dr: Ordering Physician: Kyung Jones D.O. Date of Service: 01/31/25 Procedure(s): ECG 12 lead Accession Number(s): [id number] cc: [facility] Test Date: 2025-01-31 Pat Name: ABY MADRIGAL Department: Room: - Gender: Female Nurse Emergency Room: : 1965 Requested By: 2381 Order Number: [id number] Reading MD: GOMEZ JAY M.D. Measurements Intervals [place] Rate: 69 P: 63 DE: 178 QRS: 47 QRSD: 90 T: 150 QT: 382 QTc: 402 Interpretive Statements 1100 Sinus rhythm [address] depression 4564 Twave abnormality, possible lateral ischemia 9150 abnormal ECG Compared to ECG 11/25/2024 10:15:08 No significant changes Electronically Signed On 01-31-2025 9:30:00 EDT by GOMEZ JAY M.D. Dictated By: GOMEZ JAY Signed By: 01/31/25 0930 DD/ 0027 TD/TT: Personal Banking Advisor:Troponin I High Sensitivity Reviewed date:01/31/2025 06:41:07 PM Interpretation: Performing Lab: Notes/Report: [facility] ,Troponin I High Sensitivity8.94.0-51.3 pg/mL CUT-OFF POINTS HAVE BEEN ESTABLISHED BASED ON THE FOURTH UNIVERSAL DEFINITION OF MYOCARDIAL INFARCTION. THE UPPER REFERENCE LIMIT (URL) OF TROPONIN, DEFINED THE 99TH PERCENTILE OF cTnI DISTRIBUTION IN A REFERENCE POPULATION, HAS BEEN CONFIRMED THE DECISION THRESHOLD FOR DE DIAGNOSIS. 99TH PERCENTILE = 51.4 PG/ML NOTE: HIGH-SENSITIVITY TROPONIN ASSAY IS NOT INTENDED TO BE USED IN ISOLATION BUT SHOULD BE INTERPRETED IN CONJUNCTION WITH OTHER DIAGNOSTIC AND CLINICAL INFORMATION. Performing Lab:see noteML - [facility] LBITP Reviewed date:02/18/2025 04:19:26 PM Interpretation: Performing Lab: Notes/Report: Source Facility: [facility]-[address] [place] [address] [place] [address] Cardiac Rehab Report Signed Patient: ABY MADRIGAL MR#: [id number] : 1965 Acct:[id number] Age/Sex: 59 / F ADM Date: 02/14/25 Loc: CR Attending Dr: GOMEZ JAY Ordering Physician: GOMEZ JAY Date of Service: 02/05/25 Procedure(s): ITP Accession Number(s): [id number] cc: [facility] Test Date: 2025-02-05 Pat Name: ABY MADRIGAL Department: Room: - Gender: Female Nurse Emergency Room: : 1965 Requested By: GOMEZ JAY M.D. Order Number: [id number] Milton MD: AGUILAR MAC Interpretive Statements Session Date: Electronically Signed On 02-17-2025 14:29:26 EDT by AGUILAR MAC Dictated By: Aguilar Mac D.O. Signed By: 02/17/25142802/17/25 142 DD/ 1534 TD/TT: Personal Banking Advisor:ITP Reviewed date:02/18/2025 04:19:26 PM Interpretation: Performing Lab: Notes/Report: Source Facility: [place] [address] Cardiac Rehab Report Signed Patient: ABY MADRIGAL MR#: [id number] : 1965 Acct:[id number] Age/Sex: 59 / F ADM Date: 02/14/25 Loc: CR Attending Dr: GOMEZ JAY Ordering Physician: Aguilar Mac D.O. Date of Service: 02/14/25 Procedure(s): ITP Accession Number(s): [id number] cc: [facility] Test Date: 2025-02-14 Pat Name: ABY MADRIGAL Department: Room: - Gender: Female Nurse Emergency Room: : 1965 Requested By: AGUILAR MAC Order Number: [id number] Milton MD: AGUILAR MAC Interpretive Statements Session Date: Electronically Signed On 02-17-2025 14:29:51 EDT by AGUILAR MAC Dictated By: Aguilar Mac D.O. Signed By: 02/17/25 14302/17/25 143 DD/ 19 TD/TT: Personal Banking Advisor:CBC AUTO DIFF Reviewed date:03/26/2025 08:13:17 PM Interpretation: Performing Lab: Notes/Report: [facility] ,White Blood Count7.34.0-11.0 10 3/uLRed Blood Count4.554.20-5.40 10 6/uL Kbvqkdwfzy36.912.0-16.0 g/kFKyrershflb91.936.0-48.0 %Mean Corpuscular Qezwjl36.1 81.0-99.0 fLMean Corpuscular Zjqqvsolxb16.226.7-34.0 pgMean Corpuscular HGB Conc 32.229.9-35.2 g/dLRed Cell Distribution Width15.011.0-15.0 %Platelet Gicgt483 150-450 10 3/uLMean Platelet Rhbfom16.19.5-13.5 fLNeutrophils Percent Auto61.2 43.0-75.0 %Lymphocytes Percent Auto30.020.5-60.0 %Monocytes Percent Auto6.41.7- 12.0 %Eosinophils Percent Auto1.60.9-7.0 %Basophils Percent Auto0.50.2-2.0 % Immature Granulocytes Pct Auto0.30.0-0.5 %Neutrophils Absolute Auto4.51.4-6.5 10 3/uLLymphocytes Absolute Auto2.21.2-3.8 10 3/uLMonocytes Absolute Auto0.50.3-0.8 10 3/uLEosinophils Absolute Auto0.10.0-0.7 10 3/uLBasophils Absolute Auto0.00.0- 0.1 10 3/uLImmature Granulocytes Abs Auto0.020.00-0.03 10 3/uLPerforming Lab:see noteML - [facility] LBCRP Reviewed date:03/26/2025 08:13:17 PM Interpretation: Performing Lab: Notes/Report: [facility] ,C Reactive Protein0.89<=0.50 mg/dLPerforming Lab:see noteML - [facility] LBLIPASE Reviewed date:03/26/2025 08:13:17 PM Interpretation: Performing Lab: Notes/Report: [facility] ,Hovlkl92.016.0-77.0 U/LPerforming Lab:see noteML - [facility] LBPROF 14(COMP METB) Reviewed date:03/26/2025 08:13:17 PM Interpretation: Performing Lab: Notes/Report: [facility] ,Ytlxmg274563-888 mmol/LPotassium2.53.5-5.1 mmol/L RESULTS CALLED TO UMM DIEHL RN @BY Mirtha Oconnor at 2343 Snjhrivt03618-048 mmol/LCarbon Bernvfx34.821.0-32.0 mmol/LAnion Gap9.0Rtawrgd744 74-106 mg/dLBlood Urea Acohcyeq19.07.0-18.0 mg/dLCreatinine1.340.55-1.02 mg/dL Estimated GFR ( Jllzgzi80>=60 mL/min/1.73m 2Estimated GFR (Non- Ame40>=60 mL/min/1.73m 2BUN Creatinine Ratio14.5Aampixx1.78.5-10.1 mg/dL Bilirubin Total0.30.2-1.0 mg/dLAspartate Amino Izqhkbcabeu8021-59 U/LAlanine Ypzspinraukjlwst0708-25 U/LAlkaline Oekhgbabfou1312-936 U/LTotal Protein6.76.4- 8.2 g/dLAlbumin Level3.23.4-5.0 g/dLGlobulin3.5Albumin Globulin Ratio0.9 Performing Lab:see noteML - [facility] LBTroponin I High Sensitivity Reviewed date:03/26/2025 08:13:17 PM Interpretation: Performing Lab: Notes/Report: [facility] ,Troponin I High Btetupjhtdc21.94.0-51.3 pg/mL CUT-OFF POINTS HAVE BEEN ESTABLISHED BASED ON THE FOURTH UNIVERSAL DEFINITION OF MYOCARDIAL INFARCTION. THE UPPER REFERENCE LIMIT (URL) OF TROPONIN, DEFINED THE 99TH PERCENTILE OF cTnI DISTRIBUTION IN A REFERENCE POPULATION, HAS BEEN CONFIRMED THE DECISION THRESHOLD FOR DE DIAGNOSIS. 99TH PERCENTILE = 51.4 PG/ML NOTE: HIGH-SENSITIVITY TROPONIN ASSAY IS NOT INTENDED TO BE USED IN ISOLATION BUT SHOULD BE INTERPRETED IN CONJUNCTION WITH OTHER DIAGNOSTIC AND CLINICAL INFORMATION. Performing Lab:see noteML - [facility] LBECG 12 lead Reviewed date:03/26/2025 08:13:17 PM Interpretation: Performing Lab: Notes/Report: Source Facility: [facility]-[address] [place] [address] [place] [address] Electrocardiograph Report Signed Patient: ABY MADRIGAL MR#: [id number] : 1965 Acct:[id number] Age/Sex: 59 / F ADM Date: 03/25/25 Loc: ER Attending Dr: Ordering Physician: Kyung Jones D.O. Date of Service: 03/25/25 Procedure(s): ECG 12 lead Accession Number(s): [id number] cc: [facility] Test Date: 2025-03-25 Pat Name: ABY MADRIGAL Department: Room: - Gender: Female Nurse Emergency Room: : 1965 Requested By: 2381 Order Number: [id number] Reading MD: GOMEZ JAY M.D. Measurements Intervals [place] Rate: 79 P: 50 DE: 182 QRS: 11 QRSD: 96 T: 181 QT: 350 QTc: 384 Interpretive Statements 1100 Sinus rhythm [address] depression 4564 Twave abnormality, possible lateral ischemia 9150 abnormal ECG Compared to ECG 01/31/2025 00:27:11 No significant changes Electronically Signed On 03-26-2025 7:48:20 EDT by GOMEZ JAY M.D. Dictated By: GOMEZ JAY Signed By: 03/26/25 0748 DD/ TD/TT: Personal Banking Advisor:MAGNESIUM Reviewed date:03/26/2025 08:13:17 PM Interpretation: Performing Lab: Notes/Report: [facility] ,Magnesium0.91.8-2.4 mg/dL RESULTS CALLED TO NASIR SNYDER RN @BY Mirtha Oconnor at 0155 Performing Lab:see noteML - [facility] LBTroponin I High Sensitivity Reviewed date:03/26/2025 08:13:17 PM Interpretation: Performing Lab: Notes/Report: [facility] ,Troponin I High Npkdunbxcxc61.24.0-51.3 pg/mL CUT-OFF POINTS HAVE BEEN ESTABLISHED BASED ON THE FOURTH UNIVERSAL DEFINITION OF MYOCARDIAL INFARCTION. THE UPPER REFERENCE LIMIT (URL) OF TROPONIN, DEFINED THE 99TH PERCENTILE OF cTnI DISTRIBUTION IN A REFERENCE POPULATION, HAS BEEN CONFIRMED THE DECISION THRESHOLD FOR DE DIAGNOSIS. 99TH PERCENTILE = 51.4 PG/ML NOTE: HIGH-SENSITIVITY TROPONIN ASSAY IS NOT INTENDED TO BE USED IN ISOLATION BUT SHOULD BE INTERPRETED IN CONJUNCTION WITH OTHER DIAGNOSTIC AND CLINICAL INFORMATION. Performing Lab:see noteML - [facility] LBPROF 14(COMP METB) Reviewed date:03/30/2025 01:10:37 PM Interpretation: Performing Lab: Notes/Report: [facility] ,Qfnnof223953-014 mmol/LPotassium3.13.5-5.1 mmol/XRlawlxvn90497-521 mmol/LCarbon Ikihctp01.721.0-32.0 mmol/LAnion Gap12.4Dfdpzkq0275-236 mg/dLBlood Urea Nitrogen 18.07.0-18.0 mg/dLCreatinine1.320.55-1.02 mg/dLEstimated GFR ( Hmtrnyf81 >=60 mL/min/1.73m 2Estimated GFR (Non- Ame41>=60 mL/min/1.73m 2BUN Creatinine Ratio13.3Pmeuvsd9.28.5-10.1 mg/dLBilirubin Total0.40.2-1.0 mg/dL Aspartate Amino Youtiepayrl7075-23 U/LAlanine Uaknbohthsryoeaz1143-15 U/L Alkaline Llcgqsdzzln6728-280 U/LTotal Protein6.76.4-8.2 g/dLAlbumin Level3.23.4- 5.0 g/dLGlobulin3.5Albumin Globulin Ratio0.9Performing Lab:see noteML - [facility] LBCBC AUTO DIFF Reviewed date:04/01/2025 06:23:54 PM Interpretation: Performing Lab: Notes/Report: [facility] ,White Blood Count6.54.0-11.0 10 3/uLRed Blood Count4.374.20-5.40 10 6/uL Tabcdygkno00.812.0-16.0 g/cWZgndsqesyz66.336.0-48.0 %Mean Corpuscular Lwrhrb78.1 81.0-99.0 fLMean Corpuscular Uikbpnbsur56.026.7-34.0 pgMean Corpuscular HGB Conc 32.529.9-35.2 g/dLRed Cell Distribution Width15.411.0-15.0 %Platelet Acimn273 150-450 10 3/uLMean Platelet Dyewpy68.39.5-13.5 fLNeutrophils Percent Auto49.6 43.0-75.0 %Lymphocytes Percent Auto39.020.5-60.0 %Monocytes Percent Auto7.41.7- 12.0 %Eosinophils Percent Auto2.60.9-7.0 %Basophils Percent Auto1.10.2-2.0 % Immature Granulocytes Pct Auto0.30.0-0.5 %Neutrophils Absolute Auto3.21.4-6.5 10 3/uLLymphocytes Absolute Auto2.51.2-3.8 10 3/uLMonocytes Absolute Auto0.50.3-0.8 10 3/uLEosinophils Absolute Auto0.20.0-0.7 10 3/uLBasophils Absolute Auto0.10.0- 0.1 10 3/uLImmature Granulocytes Abs Auto0.020.00-0.03 10 3/uLPerforming Lab:see noteML - [facility] LBPROF 14(COMP METB) Reviewed date:04/01/2025 06:27:24 PM Interpretation: Performing Lab: Notes/Report: [facility] ,Llddmb732888-798 mmol/LPotassium2.93.5-5.1 mmol/LRESULTS CALLED TO JULIENNE BROTHERS AT 9155Vvvpnfjf25563-801 mmol/LCarbon Ukvajzd09.821.0-32.0 mmol/LAnion Gap10.1 Jpdnqhc7569-687 mg/dLBlood Urea Ojcyaoym00.07.0-18.0 mg/dLCreatinine1.170.55- 1.02 mg/dLEstimated GFR ( Tyfenki71>=60 mL/min/1.73m 2Estimated GFR (Non- Ame47>=60 mL/min/1.73m 2BUN Creatinine Ratio19.9Siimxge1.38.5-10.1 mg/dL Bilirubin Total0.30.2-1.0 mg/dLAspartate Amino Gykqrlqtgbs9217-35 U/LAlanine Tsoqvrlguxjffnfo6670-35 U/LAlkaline Otyahruvtxm9395-466 U/LTotal Protein6.16.4- 8.2 g/dLAlbumin Level3.03.4-5.0 g/dLGlobulin3.1Albumin Globulin Ratio1.0 Performing Lab:see noteML - [facility] LBLAB TESTING Reviewed date:04/25/2025 09:59:02 PM Interpretation: Performing Lab: Notes/Report: 089529 Reducing Substances - Fecal [facility] ,Miscellaneous TestCOMMENT. Test Ordered: [id number] Reducing Substances - Fecal Reducing Substances - Fecal Normal Y8 Reference Range: Normal Performed at: [facility] [place] [address] [id number] Salad Maker: Navneet Simeon [facility], Phone: [phone] Performed at: [facility] [address] [place], [place] [id number] Salad Maker: Gopi Romeo PhD, Phone: [phone] Performing [facility] LBE coli Shiga Toxin EIA Reviewed date:04/22/2025 04:45:20 PM Interpretation: Performing Lab: Notes/Report: [facility] ,E coli Shiga Toxin EIASee Below For Report E coli Shiga Toxin EIA E coli Shiga Toxin EIANegative E coli Shiga Toxin EIA E coli Shiga Toxin EIAPerformed at: [facility] E coli Shiga Toxin EIA E coli Shiga Toxin [id number] [place], [place] [id number] E coli Shiga Toxin EIA E coli Shiga Toxin EIALab Director: Gopi Romeo PhD, Phone: [phone] E coli Shiga Toxin EIA Performing Lab:see note - [facility] LB SEE REPORT - Tomographic Tech Id information not found for OBX-specific content producer legend Campylobacter Culture Reviewed date:04/24/2025 04:35:14 PM Interpretation: Performing Lab: Notes/Report: [facility] ,Campylobacter CultureSee Below For Report Campylobacter Culture No Campylobacter species isolated. Performing Lab:see note - [facility] LBBNP Reviewed date:05/10/2025 08:41:09 AM Interpretation: Performing Lab: Notes/Report: Comment From ER blood if possible [facility] ,NT Pro B Type Natriuretic Zlbc237.0<=900.0 pg/mLPerforming Lab:see note - [facility] LBCBC AUTO DIFF Reviewed date:05/09/2025 05:41:53 PM Interpretation: Performing Lab: Notes/Report: [facility] ,White Blood Count4.84.0-11.0 10 3/uLRed Blood Count4.634.20-5.40 10 6/uL Gptefphxof32.312.0-16.0 g/gGEulnjfczbt93.636.0-48.0 %Mean Corpuscular Jlxwox71.4 81.0-99.0 fLMean Corpuscular Jyzlzejsjq74.626.7-34.0 pgMean Corpuscular HGB Conc 31.929.9-35.2 g/dLRed Cell Distribution Width16.011.0-15.0 %Platelet Slbqj142 150-450 10 3/uLMean Platelet Opfvfb48.19.5-13.5 fLNeutrophils Percent Auto50.1 43.0-75.0 %Lymphocytes Percent Auto37.920.5-60.0 %Monocytes Percent Auto7.81.7- 12.0 %Eosinophils Percent Auto3.40.9-7.0 %Basophils Percent Auto0.80.2-2.0 % Immature Granulocytes Pct Auto0.00.0-0.5 %Neutrophils Absolute Auto2.41.4-6.5 10 3/uLLymphocytes Absolute Auto1.81.2-3.8 10 3/uLMonocytes Absolute Auto0.40.3-0.8 10 3/uLEosinophils Absolute Auto0.20.0-0.7 10 3/uLBasophils Absolute Auto0.00.0- 0.1 10 3/uLImmature Granulocytes Abs Auto0.000.00-0.03 10 3/uLPerforming Lab:see noteML - [facility] LBLIPASE Reviewed date:05/09/2025 05:41:53 PM Interpretation: Performing Lab: Notes/Report: [facility] ,Lwkudv66.016.0-77.0 U/LPerforming Lab:see noteML - [facility] LBPROF 14(COMP METB) Reviewed date:05/09/2025 05:41:53 PM Interpretation: Performing Lab: Notes/Report: [facility] ,Afxjwx424607-474 mmol/LPotassium4.23.5-5.1 mmol/SUurlemho09647-876 mmol/LCarbon Pgryvbs84.821.0-32.0 mmol/LAnion Gap15.6Jxobevj27126-440 mg/dLBlood Urea Ydgbqmsy46.07.0-18.0 mg/dLCreatinine1.020.55-1.02 mg/dLEstimated GFR ( Candace>60>=60 mL/min/1.73m 2Estimated GFR (Non- Ame55>=60 mL/min/1.73m 2 BUN Creatinine Ratio14.6Xhorjle8.38.5-10.1 mg/dLBilirubin Total0.40.2-1.0 mg/dL Aspartate Amino Mahvlahzfvh9496-84 U/LAlanine Aqjdubsbpvcxiidu3617-37 U/L Alkaline Fgxdfrspvyy5830-423 U/LTotal Protein7.16.4-8.2 g/dLAlbumin Level3.73.4- 5.0 g/dLGlobulin3.4Albumin Globulin Ratio1.1Performing Lab:see noteML - [facility] LBTroponin I High Sensitivity Reviewed date:05/09/2025 05:41:53 PM Interpretation: Performing Lab: Notes/Report: [facility] ,Troponin I High Sensitivity6.44.0-51.3 pg/mL CUT-OFF POINTS HAVE BEEN ESTABLISHED BASED ON THE FOURTH UNIVERSAL DEFINITION OF MYOCARDIAL INFARCTION. THE UPPER REFERENCE LIMIT (URL) OF TROPONIN, DEFINED THE 99TH PERCENTILE OF cTnI DISTRIBUTION IN A REFERENCE POPULATION, HAS BEEN CONFIRMED THE DECISION THRESHOLD FOR DE DIAGNOSIS. 99TH PERCENTILE = 51.4 PG/ML NOTE: HIGH-SENSITIVITY TROPONIN ASSAY IS NOT INTENDED TO BE USED IN ISOLATION BUT SHOULD BE INTERPRETED IN CONJUNCTION WITH OTHER DIAGNOSTIC AND CLINICAL INFORMATION. Performing Lab:see noteML - [facility] LBECG 12 lead Reviewed date:05/09/2025 09:12:38 PM Interpretation: Performing Lab: Notes/Report: Source Facility: [facility]-[address] [place] [address] [place] [address] Electrocardiograph Report Signed Patient: ABY MADRIGAL MR#: [id number] : 1965 Acct:[id number] Age/Sex: 59 / F ADM Date: 05/09/25 Loc: ER Attending Dr: Ordering Physician: Marcell Balderrama Date of Service: 05/09/25 Procedure(s): ECG 12 lead Accession Number(s): [id number] cc: [facility] Test Date: 2025-05-09 Pat Name: ABY MADRIGAL Department: Room: - Gender: Female Nurse Emergency Room: : 1965 Requested By: 0919 Order Number: [id number] Reading MD: GOMEZ JAY M.D. Measurements Intervals [place] Rate: 60 P: 50 DE: 186 QRS: 20 QRSD: 88 T: 104 QT: 420 QTc: 420 Interpretive Statements 1100 Sinus rhythm 4564 Twave abnormality, possible lateral ischemia 9150 abnormal ECG Compared to ECG 03/25/2025 22:21:42 ST (T wave) deviation no longer present Possible ischemia still present Electronically Signed On 05-09-2025 21:06:32 EDT by GOMEZ JAY M.D. Dictated By: GOMEZ JAY Signed By: 05/09/252105 DD/ 1539 TD/TT: Personal Banking Advisor:XR chest 1V Reviewed date:05/09/2025 05:41:53 PM Interpretation: Performing Lab: Notes/Report: Source Facility: [place] [address] XRay Report Signed Patient: ABY MADRIGAL MR#: [id number] : 1965 Acct:[id number] Age/Sex: 59 / F ADM Date: 05/09/25 Loc: ER Attending Dr: Ordering Physician: Marcell Balderrama Date of Service: 05/09/25 Procedure(s): XR chest 1V Accession Number(s): [id number] cc: Knedra Murillo M.D.; Marcell Balderrama [place] [id number] Patient Name: ABY MADRIGAL MRN: [id number] date: 1965 Sex: F Assigned Patient Location: ER Current Patient Location: ER Accession/Order Number: [id number] Exam Date: 05/09/2025 16:03 Report Date: 05/09/2025 [...] White M.D. 05/09/2025 4:04 PM Dictation Location: [place] [address] Electronically authenticated by: [id number] Y Date: 05/09/2025 16:04 Dictated By: Marcell White D.O. Signed By: 05/09/25 1606 DD/ 1604 TD/TT: Personal Banking Advisor:Troponin I High Sensitivity Reviewed date:05/09/2025 08:30:26 PM Interpretation: Performing Lab: Notes/Report: [facility] ,Troponin I High Sensitivity7.54.0-51.3 pg/mL CUT-OFF POINTS HAVE BEEN ESTABLISHED BASED ON THE FOURTH UNIVERSAL DEFINITION OF MYOCARDIAL INFARCTION. THE UPPER REFERENCE LIMIT (URL) OF TROPONIN, DEFINED THE 99TH PERCENTILE OF cTnI DISTRIBUTION IN A REFERENCE POPULATION, HAS BEEN CONFIRMED THE DECISION THRESHOLD FOR DE DIAGNOSIS. 99TH PERCENTILE = 51.4 PG/ML NOTE: HIGH-SENSITIVITY TROPONIN ASSAY IS NOT INTENDED TO BE USED IN ISOLATION BUT SHOULD BE INTERPRETED IN CONJUNCTION WITH OTHER DIAGNOSTIC AND CLINICAL INFORMATION. Performing Lab:see noteML - [facility] LBECG 12 lead Reviewed date:05/10/2025 07:06:51 PM Interpretation: Performing Lab: Notes/Report: Source Facility: [facility]-[address] [place] [address] [place] [address] Electrocardiograph Report Signed Patient: ABY MADRIGAL MR#: [id number] : 1965 Acct:[id number] Age/Sex: 59 / F ADM Date: 05/09/25 Loc: [place] 217-[address]: Kendra Murillo M.D. Ordering Physician: Marcell Balderrama Date of Service: 05/09/25 Procedure(s): ECG 12 lead Accession Number(s): [id number] cc: [facility] Test Date: 2025-05-09 Pat Name: ABY MADRIGAL Department: Room: [facility] Gender: Female Nurse Emergency Room: : 1965 Requested By: 0919 Order Number: [id number] Reading MD: GOMEZ JAY M.D. Measurements Intervals [place] Rate: 60 P: 47 DE: 178 QRS: 15 QRSD: 86 T: 109 QT: 424 QTc: 424 Interpretive Statements 1100 Sinus rhythm 4564 Twave abnormality, possible lateral ischemia 5211 Minimal voltage criteria for LVH, may be normal variant 9150 abnormal ECG Compared to ECG 05/09/2025 15:39:44 No significant changes Electronically Signed On 05-10-2025 17:47:23 EDT by GOMEZ JAY M.D. Dictated By: GOMEZ JAY Signed By: 05/10/25 1747 05/10/25 174 DD/ 1557 TD/TT: Personal Banking Advisor:BNP Reviewed date:05/10/2025 08:41:08 AM Interpretation: Performing Lab: Notes/Report: Comment From blood this am if possible [facility] ,NT Pro B Type Natriuretic Sqar324.0<=900.0 pg/mLPerforming Lab:see noteML - [facility] LBCBC AUTO DIFF Reviewed date:05/10/2025 08:41:08 AM Interpretation: Performing Lab: Notes/Report: [facility] ,White Blood Count4.94.0-11.0 10 3/uLRed Blood Count4.234.20-5.40 10 6/uL Tpxlsndkic97.212.0-16.0 g/jSUupnzwyevc58.136.0-48.0 %Mean Corpuscular Ktihfs41.0 81.0-99.0 fLMean Corpuscular Imivnxkijf55.526.7-34.0 pgMean Corpuscular HGB Conc 31.929.9-35.2 g/dLRed Cell Distribution Width15.811.0-15.0 %Platelet Rlmmv221 150-450 10 3/uLMean Platelet Zpeouc75.19.5-13.5 fLNeutrophils Percent Auto48.9 43.0-75.0 %Lymphocytes Percent Auto40.220.5-60.0 %Monocytes Percent Auto6.81.7- 12.0 %Eosinophils Percent Auto3.10.9-7.0 %Basophils Percent Auto0.80.2-2.0 % Immature Granulocytes Pct Auto0.20.0-0.5 %Neutrophils Absolute Auto2.41.4-6.5 10 3/uLLymphocytes Absolute Auto2.01.2-3.8 10 3/uLMonocytes Absolute Auto0.30.3-0.8 10 3/uLEosinophils Absolute Auto0.20.0-0.7 10 3/uLBasophils Absolute Auto0.00.0- 0.1 10 3/uLImmature Granulocytes Abs Auto0.010.00-0.03 10 3/uLPerforming Lab:see noteML - [facility] LBMAGNESIUM Reviewed date:05/10/2025 08:41:08 AM Interpretation: Performing Lab: Notes/Report: [facility] ,Magnesium2.11.8-2.4 mg/dLPerforming Lab:see note - [facility] LB PROF 14(COMP METB) Reviewed date:05/10/2025 08:41:08 AM Interpretation: Performing Lab: Notes/Report: [facility] ,[id number] mmol/LPotassium3.73.5-5.1 mmol/KBkfiwfav58623-073 mmol/LCarbon Kidwesw09.721.0-32.0 mmol/LAnion Gap13.8Aybgsgq37542-337 mg/dLBlood Urea Hmeicppq84.07.0-18.0 mg/dLCreatinine0.890.55-1.02 mg/dLEstimated GFR ( Candace>60>=60 mL/min/1.73m 2Estimated GFR (Non- Susi>60>=60 mL/min/1.73m 2BUN Creatinine Ratio21.7Tgbujcd5.18.5-10.1 mg/dLBilirubin Total0.40.2-1.0 mg/dL Aspartate Amino Qwpqomuytyl2356-62 U/LAlanine Dtrqcuoftpdpcozh7563-29 U/L Alkaline Ionuvrbkyij5698-367 U/LTotal Protein6.26.4-8.2 g/dLAlbumin Level3.33.4- 5.0 g/dLGlobulin2.9Albumin Globulin Ratio1.1Performing Lab:see noteML - [facility] LBTroponin I High Sensitivity Reviewed date:05/10/2025 08:41:09 AM Interpretation: Performing Lab: Notes/Report: [facility] ,Troponin I High Izkeldbipwq19.04.0-51.3 pg/mL CUT-OFF POINTS HAVE BEEN ESTABLISHED BASED ON THE FOURTH UNIVERSAL DEFINITION OF MYOCARDIAL INFARCTION. THE UPPER REFERENCE LIMIT (URL) OF TROPONIN, DEFINED THE 99TH PERCENTILE OF cTnI DISTRIBUTION IN A REFERENCE POPULATION, HAS BEEN CONFIRMED THE DECISION THRESHOLD FOR DE DIAGNOSIS. 99TH PERCENTILE = 51.4 PG/ML NOTE: HIGH-SENSITIVITY TROPONIN ASSAY IS NOT INTENDED TO BE USED IN ISOLATION BUT SHOULD BE INTERPRETED IN CONJUNCTION WITH OTHER DIAGNOSTIC AND CLINICAL INFORMATION. Performing Lab:see noteML - [facility] LBTroponin I High Sensitivity Reviewed date:05/10/2025 07:06:51 PM Interpretation: Performing Lab: Notes/Report: [facility] ,Troponin I High Jxczgwodffr35.24.0-51.3 pg/mL CUT-OFF POINTS HAVE BEEN ESTABLISHED BASED ON THE FOURTH UNIVERSAL DEFINITION OF MYOCARDIAL INFARCTION. THE UPPER REFERENCE LIMIT (URL) OF TROPONIN, DEFINED THE 99TH PERCENTILE OF cTnI DISTRIBUTION IN A REFERENCE POPULATION, HAS BEEN CONFIRMED THE DECISION THRESHOLD FOR DE DIAGNOSIS. 99TH PERCENTILE = 51.4 PG/ML NOTE: HIGH-SENSITIVITY TROPONIN ASSAY IS NOT INTENDED TO BE USED IN ISOLATION BUT SHOULD BE INTERPRETED IN CONJUNCTION WITH OTHER DIAGNOSTIC AND CLINICAL INFORMATION. Performing Lab:see noteML - [facility] LBCA echo doppler complete Reviewed date:05/12/2025 01:44:18 PM Interpretation: Performing Lab: Notes/Report: Source Facility: [facility]-[address] [place] [address] [place] [address] Cardiology Report Signed Patient: ABY MADRIGAL MR#: [id number] : 1965 Acct:[id number] Age/Sex: 59 / F ADM Date: 05/09/25 Loc: MS 217-[address]: Kendra Murillo M.D. Ordering Physician: Kendra Murillo M.D. Date of Service: 05/10/25 Procedure(s): CA echo doppler complete Accession Number(s): [id number] cc: Kendra Murillo M.D. 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 Ordering Physician: Kendra Murillo M.D. Date of Service: 05/14/25 Procedure(s): MR knee LT wo con Accession Number(s): [id number] cc: Kendra Murillo M.D. [place] [address] Patient Name: ABY MADRIGAL MRN: [id number] date: 1965 Sex: F Assigned Patient Location: MRI Current Patient Location: MRI Accession/Order Number: [id number] Exam Date: 05/14/2025 16:44 Report Date: 05/14/2025 [...] Parada M.D. 05/14/2025 4:51 PM Dictation Location: [place] [address] Electronically authenticated by: [id number] Y Date: 05/14/2025 16:51 Dictated By: Jarocho Parada M.D. Signed By: 05/14/25 1654 DD/ 50 TD/TT: Personal Banking Advisor:CBC AUTO DIFF Reviewed date:05/20/2025 03:18:13 PM Interpretation: Performing Lab: Notes/Report: [facility] ,White Blood Count6.74.0-11.0 10 3/uLRed Blood Count4.264.20-5.40 10 6/uL Bvkdaodpua97.412.0-16.0 g/pGWcifabcjer39.636.0-48.0 %Mean Corpuscular Nlvxqm36.6 81.0-99.0 fLMean Corpuscular Lvzmdmavdi15.826.7-34.0 pgMean Corpuscular HGB Conc 32.029.9-35.2 g/dLRed Cell Distribution Width15.811.0-15.0 %Platelet Izbwr072 150-450 10 3/uLMean Platelet Volume9.79.5-13.5 fLNeutrophils Percent Auto54.7 43.0-75.0 %Lymphocytes Percent Auto34.320.5-60.0 %Monocytes Percent Auto7.71.7- 12.0 %Eosinophils Percent Auto2.80.9-7.0 %Basophils Percent Auto0.40.2-2.0 % Immature Granulocytes Pct Auto0.10.0-0.5 %Neutrophils Absolute Auto3.71.4-6.5 10 3/uLLymphocytes Absolute Auto2.31.2-3.8 10 3/uLMonocytes Absolute Auto0.50.3- 0.8 10 3/uLEosinophils Absolute Auto0.20.0-0.7 10 3/uLBasophils Absolute Auto0.0 0.0-0.1 10 3/uLImmature Granulocytes Abs Auto0.010.00-0.03 10 3/uLPerforming Lab:see noteML - [facility] LBPROF 14(COMP METB) Reviewed date:05/20/2025 03:18:13 PM Interpretation: Performing Lab: Notes/Report: [facility] ,Bnyygs417559-657 mmol/LPotassium3.73.5-5.1 mmol/RIddtwmsq50142-853 mmol/LCarbon Hknkyxe57.621.0-32.0 mmol/LAnion Gap13.4Yuxbhws74463-737 mg/dLBlood Urea Qoglmehr93.07.0-18.0 mg/dLCreatinine0.980.55-1.02 mg/dLEstimated GFR ( Candace>60>=60 mL/min/1.73m 2Estimated GFR (Non- Ame58>=60 mL/min/1.73m 2 BUN Creatinine Ratio24.6Xvwggrw0.58.5-10.1 mg/dLBilirubin Total0.30.2-1.0 mg/dL Aspartate Amino Wgwwtrswske0224-26 U/LAlanine Cflhedbktgxgzffm4297-98 U/L Alkaline Amejqmtldxq9845-245 U/LTotal Protein6.96.4-8.2 g/dLAlbumin Level3.53.4- 5.0 g/dLGlobulin3.4Albumin Globulin Ratio1.0Performing Lab:see noteML - [facility] LBTroponin I High Sensitivity Reviewed date:05/20/2025 03:18:13 PM Interpretation: Performing Lab: Notes/Report: [facility] ,Troponin I High Sensitivity5.64.0-51.3 pg/mL CUT-OFF POINTS HAVE BEEN ESTABLISHED BASED ON THE FOURTH UNIVERSAL DEFINITION OF MYOCARDIAL INFARCTION. THE UPPER REFERENCE LIMIT (URL) OF TROPONIN, DEFINED THE 99TH PERCENTILE OF cTnI DISTRIBUTION IN A REFERENCE POPULATION, HAS BEEN CONFIRMED THE DECISION THRESHOLD FOR DE DIAGNOSIS. 99TH PERCENTILE = 51.4 PG/ML NOTE: HIGH-SENSITIVITY TROPONIN ASSAY IS NOT INTENDED TO BE USED IN ISOLATION BUT SHOULD BE INTERPRETED IN CONJUNCTION WITH OTHER DIAGNOSTIC AND CLINICAL INFORMATION. Performing Lab:see noteML - [facility] LBECG 12 lead Reviewed date:05/20/2025 03:18:13 PM Interpretation: Performing Lab: Notes/Report: Source Facility: [facility]-[address] [place] [address] [place] [address] Electrocardiograph Report Signed Patient: ABY MADRIGAL MR#: [id number] : 1965 Acct:[id number] Age/Sex: 59 / F ADM Date: 05/17/25 Loc: ER Attending Dr: Ordering Physician: Ayaka Beauchamp Date of Service: 05/17/25 Procedure(s): ECG 12 lead Accession Number(s): [id number] cc: [facility] Test Date: 2025-05-17 Pat Name: ABY MADRIGAL Department: Room: - Gender: Female Nurse Emergency Room: : 1965 Requested By: 0939 Order Number: [id number] Reading MD: GOMEZ JAY M.D. Measurements Intervals [place] Rate: 61 P: 53 DE: 182 QRS: 30 QRSD: 92 T: 150 QT: 390 QTc: 393 Interpretive Statements 1100 Sinus rhythm 4068 Nonspecific Twave abnormality 9130 borderline ECG Compared to ECG 05/09/2025 15:57:14 No significant changes Electronically Signed On 05-19-2025 11:58:15 EDT by GOMEZ JAY M.D. Dictated By: GOMEZ AJY Signed By: 05/19/25 1158 DD/ 2304 TD/TT: Personal Banking Advisor:SHALOM T3 Reviewed date:06/05/2025 09:07:10 PM Interpretation: Performing Lab: Notes/Report: [facility] ,Free T31.952.18-3.98 pg/mLPerforming Lab:see noteML - [facility] LB GLYCOHEMOGLOBIN A1C Reviewed date:06/05/2025 09:07:10 PM Interpretation: Performing Lab: Notes/Report: [facility] ,Glycohemoglobin A1C5.94.5-6.2 % ADA RECOMMENDED LIMIT 4.0 - 6.0 ADA THERAPEUTIC TARGET < 7.0 ACTION SUGGESTED > 7.0 Estimated Average Rfwapki291Zlavvtfjkr Lab:see note - [facility] LB LIPID PROFILE Reviewed date:06/05/2025 09:07:10 PM Interpretation: Performing Lab: Notes/Report: [facility] ,Bsqdfvtvcfwwz76<=150 mg/jRZfeavhoeapi858<=200 mg/dLHDL Qdkfpnstabf6364-44 mg/dL > or =60 mg/dl - LOW CARDIOVASCULAR RISK <40 mg/dl - HIGH CARDIOVASCULAR RISK LDL Cholesterol Bbfhmebdnb53.0 <100 mg/dl OPTIMAL 100-129 mg/dl NEAR OR ABOVE OPTIMAL 130-159 mg/dl BORDERLINE HIGH 160-189 mg/dl HIGH >190 mg/dl VERY HIGH VLDL CHOLESTEROL8.8Chol HDL Ratio1.9 3.3 - 4.4 LOW RISK 4.4 - 7.1 AVERAGE RISK 7.1 - 11.0 MODERATE RISK >11.0 HIGH RISK Performing Lab:see note - [facility] LBPROF 14(COMP METB) Reviewed date:06/05/2025 09:07:10 PM Interpretation: Performing Lab: Notes/Report: [facility] ,Jkuhxo942891-294 mmol/LPotassium4.03.5-5.1 mmol/NQcwhozns38717-744 mmol/LCarbon Fewvfke47.021.0-32.0 mmol/LAnion Gap14.3Uzhedak2142-452 mg/dLBlood Urea Hldyhgar74.07.0-18.0 mg/dLCreatinine1.220.55-1.02 mg/dLEstimated GFR ( Tzgwuky93>=60 mL/min/1.73m 2Estimated GFR (Non- Ame45>=60 mL/min/1.73m 2 BUN Creatinine Ratio17.7Gdmupti5.28.5-10.1 mg/dLBilirubin Total0.60.2-1.0 mg/dL Aspartate Amino Sinzrpvybcx1021-00 U/LAlanine Xfmyrdxideoznfne1520-82 U/L Alkaline Nludsljwvlx5937-582 U/LTotal Protein6.76.4-8.2 g/dLAlbumin Level3.53.4- 5.0 g/dLGlobulin3.2Albumin Globulin Ratio1.1Performing Lab:see noteML - [facility] LBT4 Reviewed date:06/05/2025 09:07:10 PM Interpretation: Performing Lab: Notes/Report: [facility] ,T4 Thyroxine7.204.80-13.90 ug/dLPerforming Lab:see noteML - [facility] LBTSH Reviewed date:06/05/2025 09:07:10 PM Interpretation: Performing Lab: Notes/Report: [facility] ,Thyroid Stimulating Hormone2.2000.358-3.740 uIU/mLPerforming Lab:see noteML - [facility] LBNM gunnar perf SPECT rest str Reviewed date:06/05/2025 09:07:10 PM Interpretation: Performing Lab: Notes/Report: Source Facility: [facility]-[address] [place] [address] [place] [address] Nuclear Medicine Report Signed Patient: ABY MADRIGAL MR#: [id number] : 1965 Acct:[id number] Age/Sex: 59 / F ADM Date: 06/05/25 Loc: NM Attending Dr: GOMEZ JAY Ordering Physician: GOMEZ JAY Date of Service: 06/05/25 Procedure(s): NM gunnar perf SPECT rest str Accession Number(s): [id number] cc: Kendra Murillo M.D.; GOMEZ JAY Patient Name: ABY MADRIGAL MR#: [id number] : 1965 Exam Date: 06/05/2025 Ordering Doctor: [...] the study was pending per attending physician [facility] [place]. For more details, please see separate cardiac [...] Rahman M.D. Signed By: 06/05/25 1553 DD/ 1553 TD/TT: Personal Banking Advisor:BNP Reviewed date:06/07/2025 06:53:30 PM Interpretation: Performing Lab: Notes/Report: [facility] ,NT Pro B Type Natriuretic Rklv094.0<=900.0 pg/mLPerforming Lab:see noteML - [facility] LBCBC AUTO DIFF Reviewed date:06/06/2025 09:01:20 PM Interpretation: Performing Lab: Notes/Report: [facility] ,White Blood Count6.84.0-11.0 10 3/uLRed Blood Count4.264.20-5.40 10 6/uL Amlskqufnk36.512.0-16.0 g/tYMkpijrjgkm59.736.0-48.0 %Mean Corpuscular Fpgvsz93.8 81.0-99.0 fLMean Corpuscular Zpiswfmyhb81.026.7-34.0 pgMean Corpuscular HGB Conc 32.229.9-35.2 g/dLRed Cell Distribution Width16.411.0-15.0 %Platelet Nxfbw848 150-450 10 3/uLMean Platelet Volume9.79.5-13.5 fLNeutrophils Percent Auto54.0 43.0-75.0 %Lymphocytes Percent Auto35.820.5-60.0 %Monocytes Percent Auto7.91.7- 12.0 %Eosinophils Percent Auto1.60.9-7.0 %Basophils Percent Auto0.60.2-2.0 % Immature Granulocytes Pct Auto0.10.0-0.5 %Neutrophils Absolute Auto3.71.4-6.5 10 3/uLLymphocytes Absolute Auto2.41.2-3.8 10 3/uLMonocytes Absolute Auto0.50.3- 0.8 10 3/uLEosinophils Absolute Auto0.10.0-0.7 10 3/uLBasophils Absolute Auto0.0 0.0-0.1 10 3/uLImmature Granulocytes Abs Auto0.010.00-0.03 10 3/uLPerforming Lab:see noteML - [facility] LBPROF CHEM 8 (BAS METB) Reviewed date:06/07/2025 06:53:30 PM Interpretation: Performing Lab: Notes/Report: [facility] ,Vkuwnv734414-565 mmol/LPotassium4.43.5-5.1 mmol/YJojipgev81887-801 mmol/LCarbon Teaouyn43.721.0-32.0 mmol/LAnion Gap13.7Wyncpkx90143-628 mg/dLBlood Urea Ljiujmrs14.07.0-18.0 mg/dLCreatinine0.990.55-1.02 mg/dLEstimated GFR ( Candace>60>=60 mL/min/1.73m 2Estimated GFR (Non- Ame57>=60 mL/min/1.73m 2 BUN Creatinine Ratio20.9Tohdsmm4.28.5-10.1 mg/dLPerforming Lab:see note - [facility] LBPTT Reviewed date:06/07/2025 06:53:30 PM Interpretation: Performing Lab: Notes/Report: [facility] ,Partial Thromboplastin Time28.122.3-36.2 secPerforming Lab:see note - [facility] LBProthrombin Time INR Reviewed date:06/07/2025 06:53:30 PM Interpretation: Performing Lab: Notes/Report: [facility] ,Prothrombin Time10.09.0-11.6 secINR0.94 DESIRED INR: 2.0-3.0 CONDITIONS NOT LISTED BELOW 2.5-3.5 FOR PROSTHETIC HEART VALVE REPLACEMENT 2.5-3.5 RECURRENT THROMBOSIS Performing Lab:see note - [facility] LBTroponin I High Sensitivity Reviewed date:06/07/2025 06:53:30 PM Interpretation: Performing Lab: Notes/Report: [facility] ,Troponin I High Sensitivity6.74.0-51.3 pg/mL CUT-OFF POINTS HAVE BEEN ESTABLISHED BASED ON THE FOURTH UNIVERSAL DEFINITION OF MYOCARDIAL INFARCTION. THE UPPER REFERENCE LIMIT (URL) OF TROPONIN, DEFINED THE 99TH PERCENTILE OF cTnI DISTRIBUTION IN A REFERENCE POPULATION, HAS BEEN CONFIRMED THE DECISION THRESHOLD FOR DE DIAGNOSIS. 99TH PERCENTILE = 51.4 PG/ML NOTE: HIGH-SENSITIVITY TROPONIN ASSAY IS NOT INTENDED TO BE USED IN ISOLATION BUT SHOULD BE INTERPRETED IN CONJUNCTION WITH OTHER DIAGNOSTIC AND CLINICAL INFORMATION. Performing Lab:see note - [facility] LBECG 12 lead Reviewed date:06/09/2025 03:43:46 PM Interpretation: Performing Lab: Notes/Report: Source Facility: [place] [address] [place] [address] Electrocardiograph Report Signed Patient: ABY MADRIGAL MR#: [id number] : 1965 Acct:[id number] Age/Sex: 59 / F ADM Date: 06/06/25 Loc: ER Attending Dr: Ordering Physician: Lorenzo Romeo Date of Service: 06/06/25 Procedure(s): ECG 12 lead Accession Number(s): [id number] cc: [facility] Test Date: 2025-06-06 Pat Name: ABY MADRIGAL Department: Room: - Gender: Female Nurse Emergency Room: : 1965 Requested By: 1031 Order Number: [id number] Reading MD: BRUNILDA RAHMAN Measurements Intervals [place] Rate: 55 P: 62 DE: 166 QRS: 50 QRSD: 90 T: 75 QT: 398 QTc: 386 Interpretive Statements 1100 Sinus rhythm 4068 Nonspecific Twave abnormality 9130 borderline ECG Compared to ECG 05/17/2025 23:04:33 No significant changes Electronically Signed On 06-08-2025 9:54:45 EDT by BRUNILDA RAHMAN Dictated By: Brunilda Rahman M.D. Signed By: 06/08/25 0955 DD/ 00 TD/TT: Personal Banking Advisor:XR chest 1V Reviewed date:06/06/2025 09:01:20 PM Interpretation: Performing Lab: Notes/Report: Source Facility: [place] [address] XRay Report Signed Patient: ABY MADRIGAL MR#: [id number] : 1965 Acct:[id number] Age/Sex: 59 / F ADM Date: 06/06/25 Loc: ER Attending Dr: Ordering Physician: Lorenzo Romeo Date of Service: 06/06/25 Procedure(s): XR chest 1V Accession Number(s): [id number] cc: Lorenzo Romeo; Kendra Murillo M.D. [place] [address] Patient Name: ABY MADRIGAL MRN: [id number] date: 1965 Sex: F Assigned Patient Location: ED.MAIN Current Patient Location: ED.MAIN Accession/Order Number: [id number] Exam Date: 06/06/2025 20:39 Report Date: 06/06/2025 [...] Parada M.D. 06/06/2025 8:40 PM Dictation Location: [place] [address] Electronically authenticated by: [id number] Y Date: 06/06/2025 20:40 Dictated By: Jarocho Parada M.D. Signed By: 06/06/252041 DD/ 39 TD/TT: Personal Banking Advisor:JULIANN Reviewed date:07/23/2025 02:31:10 PM Interpretation: Performing Lab: Notes/Report: Source Facility: [place] [address] Cardiac Rehab Report Signed Patient: ABY MADRIGAL MR#: [id number] : 1965 Acct:[id number] Age/Sex: 60 / F ADM Date: 07/19/25 Loc: CR Attending Dr: GOMEZ JAY Ordering Physician: GOMEZ JAY Date of Service: 07/03/25 Procedure(s): ITP Accession Number(s): [id number] cc: [facility] Test Date: 2025-07-03 Pat Name: ABY MADRIGAL Department: Room: - Gender: Female Nurse Emergency Room: : 1965 Requested By: GOMEZ JAY M.D. Order Number: [id number] [place] MD: Nikki Licea Interpretive Statements Session Date: Electronically Signed On 07-20-2025 13:27:51 EDT by Nikki Licea Dictated By: Nikki Licea M.D. Signed By: 07/20/25 1328 07/20/25 1328 DD/ 28 TD/TT: Personal Banking Advisor:CBC AUTO DIFF Reviewed date:07/08/2025 01:56:17 PM Interpretation: Performing Lab: Notes/Report: [facility] ,White Blood Count5.64.0-11.0 10 3/uLRed Blood Count4.484.20-5.40 10 6/uL Nggzhidfju92.312.0-16.0 g/hRHohrzsgmbw71.136.0-48.0 %Mean Corpuscular Fetiqb58.0 81.0-99.0 fLMean Corpuscular Gvcwaehbmh74.526.7-34.0 pgMean Corpuscular HGB Conc 32.329.9-35.2 g/dLRed Cell Distribution Width15.711.0-15.0 %Platelet Jgufo240 150-450 10 3/uLMean Platelet Octvrp57.19.5-13.5 fLNeutrophils Percent Auto54.2 43.0-75.0 %Lymphocytes Percent Auto32.120.5-60.0 %Monocytes Percent Auto9.61.7- 12.0 %Eosinophils Percent Auto3.00.9-7.0 %Basophils Percent Auto0.70.2-2.0 % Immature Granulocytes Pct Auto0.40.0-0.5 %Neutrophils Absolute Auto3.11.4-6.5 10 3/uLLymphocytes Absolute Auto1.81.2-3.8 10 3/uLMonocytes Absolute Auto0.50.3- 0.8 10 3/uLEosinophils Absolute Auto0.20.0-0.7 10 3/uLBasophils Absolute Auto0.0 0.0-0.1 10 3/uLImmature Granulocytes Abs Auto0.020.00-0.03 10 3/uLPerforming Lab:see noteML - [facility] LBPROF CHEM 8 (BAS METB) Reviewed date:07/08/2025 01:56:17 PM Interpretation: Performing Lab: Notes/Report: [facility] ,Glhicd879298-584 mmol/LPotassium4.53.5-5.1 mmol/VInfkgxrh76407-278 mmol/LCarbon Ieottsk49.521.0-32.0 mmol/LAnion Gap12.8Sxbtzsv39653-598 mg/dLBlood Urea Xwumcuea78.07.0-18.0 mg/dLCreatinine1.220.55-1.02 mg/dLEstimated GFR ( Wqsgaxv63>=60 mL/min/1.73m 2Estimated GFR (Non- Ame45>=60 mL/min/1.73m 2 BUN Creatinine Ratio17.9Oniggta8.28.5-10.1 mg/dLPerforming Lab:see noteML - [facility] LBTroponin I High Sensitivity Reviewed date:07/08/2025 01:56:17 PM Interpretation: Performing Lab: Notes/Report: [facility] ,Troponin I High Sensitivity7.14.0-51.3 pg/mL CUT-OFF POINTS HAVE BEEN ESTABLISHED BASED ON THE FOURTH UNIVERSAL DEFINITION OF MYOCARDIAL INFARCTION. THE UPPER REFERENCE LIMIT (URL) OF TROPONIN, DEFINED THE 99TH PERCENTILE OF cTnI DISTRIBUTION IN A REFERENCE POPULATION, HAS BEEN CONFIRMED THE DECISION THRESHOLD FOR DE DIAGNOSIS. 99TH PERCENTILE = 51.4 PG/ML NOTE: HIGH-SENSITIVITY TROPONIN ASSAY IS NOT INTENDED TO BE USED IN ISOLATION BUT SHOULD BE INTERPRETED IN CONJUNCTION WITH OTHER DIAGNOSTIC AND CLINICAL INFORMATION. Performing Lab:see noteML - [facility] LBECG 12 lead Reviewed date:07/09/2025 07:22:20 PM Interpretation: Performing Lab: Notes/Report: Source Facility: [place] [address] Electrocardiograph Report Signed Patient: ABY MADRIGAL MR#: [id number] : 1965 Acct:[id number] Age/Sex: 60 / F ADM Date: 07/08/25 Loc: ER Attending Dr: Ordering Physician: Jose Betancur M.D. Date of Service: 07/08/25 Procedure(s): ECG 12 lead Accession Number(s): [id number] cc: [facility] Test Date: 2025-07-08 Pat Name: ABY MADRIGAL Department: Room: - Gender: Female Nurse Emergency Room: : 1965 Requested By: KENDRA MURILLO Order Number: [id number] [place] MD: GOMEZ JAY M.D. Measurements Intervals [place] Rate: 64 P: 50 DE: 166 QRS: 18 QRSD: 86 T: 77 QT: 376 QTc: 385 Interpretive Statements 1100 Sinus rhythm 4068 Nonspecific Twave abnormality 9130 borderline ECG Compared to ECG 06/06/2025 20:01:29 No significant changes Electronically Signed On 07-09-2025 17:41:33 EDT by GOMEZ JAY M.D. Dictated By: GOMEZ JAY Signed By: 07/09/25 1741 DD/ 1003 TD/TT: Personal Banking Advisor:XR chest 1V Reviewed date:07/08/2025 01:56:17 PM Interpretation: Performing Lab: Notes/Report: Source Facility: [place] [address] XRay Report Signed Patient: ABY MADRIGAL MR#: [id number] : 1965 Acct:[id number] Age/Sex: 60 / F ADM Date: 07/08/25 Loc: ER Attending Dr: Ordering Physician: Jose Betancur M.D. Date of Service: 07/08/25 Procedure(s): XR chest 1V Accession Number(s): [id number] cc: Kendra Murillo M.D.; Jose Betancur M.D. [place] [address] Patient Name: ABY MADRIGAL MRN: [id number] date: 1965 Sex: F Assigned Patient Location: ER Current Patient Location: ER Accession/Order Number: [id number] Exam Date: 07/08/2025 10:53 Report Date: 07/08/2025 [...] Jr., D.O. 07/08/2025 10:58 AM Dictation Location: [facility] Electronically authenticated by: [id number] Y Date: 07/08/2025 10:58 Dictated By: Malik Gomez M.D. Signed By: 07/08/25 1101 DD/ 1058 TD/TT: Personal Banking Advisor:Troponin I High Sensitivity Reviewed date:07/08/2025 01:56:17 PM Interpretation: Performing Lab: Notes/Report: [facility] ,Troponin I High Sensitivity5.34.0-51.3 pg/mL CUT-OFF POINTS HAVE BEEN ESTABLISHED BASED ON THE FOURTH UNIVERSAL DEFINITION OF MYOCARDIAL INFARCTION. THE UPPER REFERENCE LIMIT (URL) OF TROPONIN, DEFINED THE 99TH PERCENTILE OF cTnI DISTRIBUTION IN A REFERENCE POPULATION, HAS BEEN CONFIRMED THE DECISION THRESHOLD FOR DE DIAGNOSIS. 99TH PERCENTILE = 51.4 PG/ML NOTE: HIGH-SENSITIVITY TROPONIN ASSAY IS NOT INTENDED TO BE USED IN ISOLATION BUT SHOULD BE INTERPRETED IN CONJUNCTION WITH OTHER DIAGNOSTIC AND CLINICAL INFORMATION. Performing Lab:see noteML - [facility] LBITP Reviewed date:08/08/2025 06:06:50 PM Interpretation: Performing Lab: Notes/Report: Source Facility: [facility]-[address] [place] [address] [place] [address] Cardiac Rehab Report Signed Patient: ABY MADRIGAL MR#: [id number] : 1965 Acct:[id number] Age/Sex: 60 / F ADM Date: 08/07/25 Loc: CR Attending Dr: GOMEZ JAY Ordering Physician: GOMEZ JAY Date of Service: 07/26/25 Procedure(s): ITP Accession Number(s): [id number] cc: [facility] Test Date: 2025-07-26 Pat Name: ABY MADRIGAL Department: Room: - Gender: Female Nurse Emergency Room: : 1965 Requested By: GOMEZ JAY M.D. Order Number: [id number] [place] MD: GOMEZ JAY M.D. Interpretive Statements Patient may continue cardiac rehab as outlined in the treatment plan. Electronically Signed On 08-08-2025 17:59:25 EDT by GOMEZ JAY M.D. Dictated By: GOMEZ JAY Signed By: 08/08/25 [id number] DD/ 5 TD/TT: Personal Banking Advisor:JULIANN Reviewed date:08/27/2025 06:46:36 PM Interpretation: Performing Lab: Notes/Report: Source Facility: [place] [address] Cardiac Rehab Report Signed Patient: ABY MADRIGAL MR#: [id number] : 1965 Acct:[id number] Age/Sex: 60 / F ADM Date: 08/23/25 Loc: CR Attending Dr: GOMEZ JAY Ordering Physician: GOMEZ JAY Date of Service: 08/27/25 Procedure(s): [facility] Accession Number(s): [id number] cc: [facility] Test Date: 2025-08-27 Pat Name: ABY MADRIGAL Department: Room: - Gender: Female Nurse Emergency Room: : 1965 Requested By: GOMEZ JAY M.D. Order Number: [id number] [place] MD: GOMEZ JAY M.D. Interpretive Statements Patient may continue cardiac rehab as outlined in the treatment plan. Electronically Signed On 08-27-2025 18:32:15 EDT by GOMEZ JAY M.D. Dictated By: GOMEZ JAY Signed By: 08/27/[id number]/27/251831 DD/ TD/TT: Personal Banking Advisor:VÍCTOR [employer] Reviewed date:09/06/2025 07:16:42 PM Interpretation: Performing Lab: Notes/Report: Source Facility: [place] [address] Mammography Report Signed Patient: ABY MADRIGAL MR#: [id number] : 1965 Acct:[id number] Age/Sex: 60 / F ADM Date: 09/06/25 Loc: MAMMO Attending Dr: Kendra Murillo M.D. Ordering Physician: Kendra Murillo M.D. Results: Date of Service: 09/06/25 Follow Up: Procedure(s): MM tomosynthesis screening BI Accession Number(s): [id number] cc: Kendra Murillo M.D. Patient Name: ABY MADRIGAL MR#: [id number] : 1965 Exam Date: 09/06/2025 Ordering Doctor: DR KENDRA MURILLO . RADIOLOGY REPORT PROCEDURE: MM TOMOSYNTHESIS SCREENING BI COMPARISON: MG MAMM SCREEN NINO W CAD, 10/31/2020. MG MAMM SCREEN NINO W CAD, 10/18/2018. MG MAMM NINO SCRN W CAD DIG, 09/20/2013. MG MAMM NINO SCRN W CAD DIG, 07/13/2006. INDICATIONS: Screening Calculator Name NCI Breast Cancer Risk Assessment Tool 5 Year Breast Cancer Risk 2.80% Lifetime Breast Cancer Risk 12.90% Personal Breast Cancer No Personal Ovarian Cancer No Treatments None Family Cancers Mother with breast cancer at age 47; Mother with lung cancer at age 59; Sister with lung cancer at age 44. LOCATION: [facility] BREAST COMPOSITION: There are scattered areas of fibroglandular density. FINDINGS: RIGHT BREAST: No significant suspicious finding. LEFT BREAST: No significant suspicious finding. DIAGNOSTIC CATEGORY 1--NEGATIVE. RECOMMENDATIONS: ROUTINE MAMMOGRAM AND CLINICAL EVALUATION IN 12 MONTHS. Dictated by: Jorge Stanley MD on 09/06/2025 at 14:48 Approved by: Jorge Stanley MD on 09/06/2025 at 14:51 Dictated By: Jorge Stanley M.D. Signed By: 09/06/25 145 DD/ 50 TD/TT: Personal Banking Advisor:JULIANN Reviewed date:09/27/2025 12:51:05 PM Interpretation: Performing Lab: Notes/Report: Source [place] [address] [place] [id number] Card[place] Rehab Report Signed Patient: ABY MADRIGAL MR#: [id number] : 1965 Acct:[id number] Age/Sex: 60 / F ADM Date: 09/27/25 Loc: CR Attending Dr: GOMEZ JAY Ordering Physician: GOMEZ JAY Date of Service: 09/26/25 Procedure(s): ITP Accession Number(s): [id number] cc: [facility] Test Date: 2025-09-26 Pat Name: ABY MADRIGAL Department: Room: - Gender: Female Nurse Emergency Room: : 1965 Requested By: GOMEZ JAY M.D. Order Number: [id number] [place] MD: GOMEZ JAY M.D. Interpretive Statements Patient may continue cardiac rehab as outlined in the treatment plan. Electronically Signed On 09-27-2025 7:26:59 EST by GOMEZ JAY M.D. Dictated By: GOMEZ JAY Signed By: 09/27/2572609/27/25726 DD/ 1231 TD/TT: Personal Banking Advisor:CBC AUTO DIFF Reviewed date:06/05/2025 09:07:10 PM Interpretation: Performing Lab: Notes/Report: [facility] ,White Blood Count6.74.0-11.0 10 3/uLRed Blood Count4.554.20-5.40 10 6/uL Qcahwyoecf65.212.0-16.0 g/jDSrezacfmug32.836.0-48.0 %Mean Corpuscular Klelhu26.3 81.0-99.0 fLMean Corpuscular Pemplgucqj36.826.7-34.0 pgMean Corpuscular HGB Conc 31.429.9-35.2 g/dLRed Cell Distribution Width16.711.0-15.0 %Platelet Dlips666 150-450 10 3/uLMean Platelet Xcdsmf24.19.5-13.5 fLNeutrophils Percent Auto57.7 43.0-75.0 %Lymphocytes Percent Auto34.420.5-60.0 %Monocytes Percent Auto5.71.7- 12.0 %Eosinophils Percent Auto1.40.9-7.0 %Basophils Percent Auto0.60.2-2.0 % Immature Granulocytes Pct Auto0.20.0-0.5 %Neutrophils Absolute Auto3.91.4-6.5 10 3/uLLymphocytes Absolute Auto2.31.2-3.8 10 3/uLMonocytes Absolute Auto0.40.3- 0.8 10 3/uLEosinophils Absolute Auto0.10.0-0.7 10 3/uLBasophils Absolute Auto0.0 0.0-0.1 10 3/uLImmature Granulocytes Abs Auto0.010.00-0.03 10 3/uLPerforming Lab:see noteML - [facility] LBTroponin I High Sensitivity Reviewed date:05/09/2025 09:12:38 PM Interpretation: Performing Lab: Notes/Report: [facility] ,Troponin I High Sensitivity4.64.0-51.3 pg/mL CUT-OFF POINTS HAVE BEEN ESTABLISHED BASED ON THE FOURTH UNIVERSAL DEFINITION OF MYOCARDIAL INFARCTION. THE UPPER REFERENCE LIMIT (URL) OF TROPONIN, DEFINED THE 99TH PERCENTILE OF cTnI DISTRIBUTION IN A REFERENCE POPULATION, HAS BEEN CONFIRMED THE DECISION THRESHOLD FOR DE DIAGNOSIS. 99TH PERCENTILE = 51.4 PG/ML NOTE: HIGH-SENSITIVITY TROPONIN ASSAY IS NOT INTENDED TO BE USED IN ISOLATION BUT SHOULD BE INTERPRETED IN CONJUNCTION WITH OTHER DIAGNOSTIC AND CLINICAL INFORMATION. Performing Lab:see noteML - [facility] LBE coli Shiga Toxin EIA Reviewed date:04/24/2025 04:35:14 PM Interpretation: Performing Lab: Notes/Report: [facility] ,E coli Shiga Toxin EIASee Below For Report E coli Shiga Toxin EIA E coli Shiga Toxin EIANegative E coli Shiga Toxin EIA E coli Shiga Toxin EIAPerformed at: - [facility] E coli Shiga Toxin EIA E coli Shiga Toxin [id number] [place], [place] [id number] E coli Shiga Toxin EIA E coli Shiga Toxin EIALab Director: Gopi Romeo PhD, Phone: [phone] E coli Shiga Toxin EIA Performing Lab:see note LC - [facility] LB SEE REPORT - Tomographic Tech Id information not found for OBX-specific content producer legend Salmonella/Shigella Screen Reviewed date:04/24/2025 04:35:14 PM Interpretation: Performing Lab: Notes/Report: [facility] ,Salmonella/Shigella ScreenSee Below For Report Salmonella/Shigella Screen Salmonella/Shigella ScreenNo Salmonella or Shigella recovered. Salmonella/Shigella Screen Performing Lab:see noteLC - [facility] LBC. Difficile PCR Reviewed date:04/19/2025 06:15:21 PM Interpretation: Performing Lab: Notes/Report: [facility] ,C. Difficile PCRNEGATIVEPerforming Lab:see noteML - [facility] LBUA RANDOM W or MICROSCOPIC Reviewed date:04/02/2025 02:24:30 PM Interpretation: Performing Lab: Notes/Report: [facility] ,Color UrineLT. YELLOWYELLOWClarity UrineCLEARCLEARSpecific [place] Urine<=1.005 1.005-1.025pH Urine6.05.0-9.0Protein UrineNEGATIVENEG/TRACE mg/dLGlucose Urine UA>=1000NEGATIVE mg/dLBilirubin UrineNEGATIVENEGATIVEKetones UrineNEGATIVE NEGATIVE mg/dLBlood UrineTRACE-INEGATIVENitrite UrineNEGATIVENEGATIVE Urobilinogen Urine0.20.2-1.0 EU/dLLeukocyte Esterase UrineNEGATIVENEGATIVEWBC Urine0-2NONE SEEN #/HPFRBC UrineNONE SEEN0-2 #/HPFBacteria UrineNONE SEENNONE SEEN #/HPFMucus UrineNONE SEENNONE SEENSquamous Epithelial Cell UrineRARE NONE/RARE #/LPFCrystals Seen?None SeenNone Seen #/HPFCast Seen?NONE SEENNONE SEEN #/LPFUrine Culture IndicatedNOPerforming Lab:see note - [facility] LBXR chest 1V Reviewed date:11/16/2024 06:07:28 PM Interpretation: Performing Lab: Notes/Report: Source Facility: [facility]-[address] [place] [address] [place] [address] XRay Report Signed Patient: ABY MADRIGAL MR#: [id number] : 1965 Acct:[id number] Age/Sex: 59 / F ADM Date: 11/15/24 Loc: ER Attending Dr: Ordering Physician: Donald Hoskins D.O. Date of Service: 11/15/24 Procedure(s): XR chest 1V Accession Number(s): [id number] cc: Donald Hoskins D.O.; Kendra Murillo M.D. [place] [address] Patient Name: ABY MADRIGAL MRN: [facility]:[id number] date: 1965 Sex: F Assigned Patient Location: ER Current Patient Location: ER Accession/Order Number: [id number] Exam Date: 11/15/2024 22:18 Report Date: 11/15/2024 [...] D.O. Signed By: 11/15/242255 DD/ 53 TD/TT: Personal Banking Advisor:ECG 12 lead Reviewed date:11/18/2024 09:02:39 PM Interpretation: Performing Lab: Notes/Report: Source Facility: [facility]-[address] [place] [address] [place] [address] Electrocardiograph Report Signed Patient: ABY MADRIGAL MR#: [id number] : 1965 Acct:[id number] Age/Sex: 59 / F ADM Date: 11/15/24 Loc: ER Attending Dr: Ordering Physician: Donald Hoskins D.O. Date of Service: 11/15/24 Procedure(s): ECG 12 lead Accession Number(s): [id number] cc: [facility] Test Date: 2024-11-15 Pat Name: ABY MADRIGAL Department: Room: - Gender: Female Nurse Emergency Room: : 1965 Requested By: Donald Hoskins Order Number: [id number] Reading MD: KENDRA MURILLO Measurements Intervals [place] Rate: 75 P: 54 DE: 184 QRS: 18 QRSD: 88 T: 97 QT: 376 QTc: 405 Interpretive Statements 1100 Sinus rhythm 4068 Nonspecific Twave abnormality 9130 borderline ECG Compared to ECG 11/15/2024 21:58:03 Ventricular premature complex(es) no longer present Dictated By: Kendra Murillo M.D. Signed By: <Electronically signed by Kendra Murillo M.D.> 11/17/24 0653 DD/ 2158 TD/TT: Personal Banking Advisor:Troponin I High Sensitivity Reviewed date:11/16/2024 06:07:28 PM Interpretation: Performing Lab: Notes/Report: [facility] ,Troponin I High Sensitivity8.44.0-51.3 pg/mL 99TH PERCENTILE = 51.4 PG/ML NOTE: [...] HAS BEEN CONFIRMED THE DECISION THRESHOLD FOR DE DIAGNOSIS. Performing Lab:see noteML - [facility] LBPROF 14(COMP METB) Reviewed date:11/16/2024 06:07:28 PM Interpretation: Performing Lab: Notes/Report: [facility] ,Vhlmuf413369-608 mmol/LPotassium3.63.5-5.1 mmol/SKojknfrc97269-583 mmol/LCarbon Zizizho50.121.0-32.0 mmol/LAnion Gap13.0Fsrrilv02316-448 mg/dLBlood Urea Obowowla91.07.0-18.0 mg/dLCreatinine1.140.55-1.02 mg/dLEstimated GFR ( Bybnbdy19>=60 mL/min/1.73m 2Estimated GFR (Non- Ame49>=60 mL/min/1.73m 2 BUN Creatinine Ratio14.2Pvsjxkw0.98.5-10.1 mg/dLBilirubin Total0.30.2-1.0 mg/dL Aspartate Amino Cyurepvmrlg7426-34 U/LAlanine Pfqutgpvcxvsdvgu4440-72 U/L Alkaline Hnzbiborglr8971-571 U/LTotal Protein7.26.4-8.2 g/dLAlbumin Level3.83.4- 5.0 g/dLGlobulin3.4Albumin Globulin Ratio1.1Performing Lab:see noteML - [facility] LBCBC AUTO DIFF Reviewed date:11/16/2024 06:07:28 PM Interpretation: Performing Lab: Notes/Report: [facility] ,White Blood Count6.74.0-11.0 10 3/uLRed Blood Count4.764.20-5.40 10 6/uL Dngxeseeek61.412.0-16.0 g/wXXuacklwnmv59.636.0-48.0 %Mean Corpuscular Xgyxfd26.2 81.0-99.0 fLMean Corpuscular Wzfpmryktj74.126.7-34.0 pgMean Corpuscular HGB Conc 31.329.9-35.2 g/dLRed Cell Distribution Width15.311.0-15.0 %Platelet Tuvbi428 150-450 10 3/uLMean Platelet Agtpkj11.19.5-13.5 fLNeutrophils Percent Auto51.6 43.0-75.0 %Lymphocytes Percent Auto35.620.5-60.0 %Monocytes Percent Auto7.51.7- 12.0 %Eosinophils Percent Auto4.20.9-7.0 %Basophils Percent Auto0.90.2-2.0 % Immature Granulocytes Pct Auto0.20.0-0.5 %Neutrophils Absolute Auto3.41.4-6.5 10 3/uLLymphocytes Absolute Auto2.41.2-3.8 10 3/uLMonocytes Absolute Auto0.50.3- 0.8 10 3/uLEosinophils Absolute Auto0.30.0-0.7 10 3/uLBasophils Absolute Auto0.1 0.0-0.1 10 3/uLImmature Granulocytes Abs Auto0.010.00-0.03 10 3/uLPerforming Lab:see noteML - [facility] LBBNP Reviewed date:11/16/2024 06:07:28 PM Interpretation: Performing Lab: Notes/Report: [facility] ,NT Pro B Type Natriuretic Cvre808.0<=900.0 pg/mLPerforming Lab:see note - [facility] LBTroponin I High Sensitivity Reviewed date:11/13/2024 08:37:17 PM Interpretation: Performing Lab: Notes/Report: [facility] ,Troponin I High Bimxmsktfzy17.84.0-51.3 pg/mL CUT-OFF POINTS HAVE BEEN ESTABLISHED BASED ON THE FOURTH UNIVERSAL DEFINITION OF MYOCARDIAL INFARCTION. THE UPPER REFERENCE LIMIT (URL) OF TROPONIN, DEFINED THE 99TH PERCENTILE OF cTnI DISTRIBUTION IN A REFERENCE POPULATION, HAS BEEN CONFIRMED THE DECISION THRESHOLD FOR DE DIAGNOSIS. 99TH PERCENTILE = 51.4 PG/ML NOTE: HIGH-SENSITIVITY TROPONIN ASSAY IS NOT INTENDED TO BE USED IN ISOLATION BUT SHOULD BE INTERPRETED IN CONJUNCTION WITH OTHER DIAGNOSTIC AND CLINICAL INFORMATION. Performing Lab:see note - [facility] LBPROF CHEM 8 (BAS METB) Reviewed date:11/13/2024 08:37:17 PM Interpretation: Performing Lab: Notes/Report: [facility] ,Faheun630095-756 mmol/LPotassium3.63.5-5.1 mmol/AAwxeqfyr72012-172 mmol/LCarbon Xnzgonq35.821.0-32.0 mmol/LAnion Gap12.9Hmwazpm76075-700 mg/dLBlood Urea Tvejaplm34.07.0-18.0 mg/dLCreatinine1.200.55-1.02 mg/dLEstimated GFR ( Soymklq45>=60 mL/min/1.73m 2Estimated GFR (Non- Ame46>=60 mL/min/1.73m 2 BUN Creatinine Ratio15.7Irmtbln5.88.5-10.1 mg/dLPerforming Lab:see noteML - [facility] LBCBC AUTO DIFF Reviewed date:11/13/2024 08:37:17 PM Interpretation: Performing Lab: Notes/Report: [facility] ,White Blood Count4.74.0-11.0 10 3/uLRed Blood Count4.154.20-5.40 10 6/uL Mpnrmatdch09.812.0-16.0 g/aGYdkegdidrn88.036.0-48.0 %Mean Corpuscular Ycihvm57.3 81.0-99.0 fLMean Corpuscular Vtbtzexqrd30.026.7-34.0 pgMean Corpuscular HGB Conc 30.929.9-35.2 g/dLRed Cell Distribution Width15.711.0-15.0 %Platelet Chuuw217 150-450 10 3/uLMean Platelet Volume9.79.5-13.5 fLNeutrophils Percent Auto46.9 43.0-75.0 %Lymphocytes Percent Auto38.920.5-60.0 %Monocytes Percent Auto9.31.7- 12.0 %Eosinophils Percent Auto3.80.9-7.0 %Basophils Percent Auto1.10.2-2.0 % Immature Granulocytes Pct Auto0.00.0-0.5 %Neutrophils Absolute Auto2.21.4-6.5 10 3/uLLymphocytes Absolute Auto1.81.2-3.8 10 3/uLMonocytes Absolute Auto0.40.3- 0.8 10 3/uLEosinophils Absolute Auto0.20.0-0.7 10 3/uLBasophils Absolute Auto0.1 0.0-0.1 10 3/uLImmature Granulocytes Abs Auto0.000.00-0.03 10 3/uLPerforming Lab:see noteML - [facility] LBTroponin I High Sensitivity Reviewed date:11/12/2024 02:22:59 PM Interpretation: Performing Lab: Notes/Report: [facility] ,Troponin I High Htsnsycqfib81.04.0-51.3 pg/mL CUT-OFF POINTS HAVE BEEN ESTABLISHED BASED ON THE FOURTH UNIVERSAL DEFINITION OF MYOCARDIAL INFARCTION. THE UPPER REFERENCE LIMIT (URL) OF TROPONIN, DEFINED THE 99TH PERCENTILE OF cTnI DISTRIBUTION IN A REFERENCE POPULATION, HAS BEEN CONFIRMED THE DECISION THRESHOLD FOR DE DIAGNOSIS. 99TH PERCENTILE = 51.4 PG/ML NOTE: HIGH-SENSITIVITY TROPONIN ASSAY IS NOT INTENDED TO BE USED IN ISOLATION BUT SHOULD BE INTERPRETED IN CONJUNCTION WITH OTHER DIAGNOSTIC AND CLINICAL INFORMATION. Performing Lab:see noteML - [facility] LBECG 12 lead Reviewed date:11/14/2024 10:08:15 AM Interpretation: Performing Lab: Notes/Report: Source Facility: [facility]-[address] [place] [address] Electrocardiograph Report Signed Patient: ABY MADRIGAL MR#: [id number] : 1965 Acct:[id number] Age/Sex: 59 / F ADM Date: 11/12/24 Loc: MS 212-[address]: Kendra Murillo M.D. Ordering Physician: Elie Zabala Date of Service: 11/12/24 Procedure(s): ECG 12 lead Accession Number(s): [id number] cc: [facility] Test Date: 2024-11-12 Pat Name: ABY MADRIGAL Department: Room: - Gender: Female Nurse Emergency Room: : 1965 Requested By: KENDRA MURILLO Order Number: [id number] Reading MD: AGUILAR MAC Measurements Intervals [place] Rate: 81 P: 40 DE: 156 QRS: 15 QRSD: 86 T: 193 QT: 348 QTc: 385 Interpretive Statements 1100 Sinus rhythm 4664 Twave abnormality, possible inferolateral ischemia 9150 abnormal ECG Compared to ECG 10/15/2024 16:56:32 Left ventricular hypertrophy no longer present Possible ischemia still present Electronically Signed On 11-13-2024 22:38:41 EST by AGUILAR MAC Dictated By: Aguilar Mac D.O. Signed By: 11/13/24 2238 DD/ 0601 TD/TT: Personal Banking Advisor:RT pulmonary function test Reviewed date:11/08/2024 04:14:57 PM Interpretation: Performing Lab: Notes/Report: Source Facility: [facility]-[address] [place] [address] [place] [address] Respiratory Report Signed Patient: ABY MADRIGAL MR#: [id number] : 1965 Acct:[id number] Age/Sex: 59 / F ADM Date: 11/03/24 Loc: CARD Attending Dr: Non-Staff Physician Errol Ordering Physician: Francine Bee M.D. Date of Service: 11/03/24 Procedure(s): RT pulmonary function test Accession Number(s): [id number] cc: [facility] Test Date: 2024-11-03 Pat Name: ABY MADRIGAL Department: Room: - Gender: Female Nurse Emergency Room: Mary Peoples RRT : 1965 Requested By: [id number] Order Number: [id number] [place] MD: Marlon Beal Interpretive Statements Pulmonary [...] 11/08/24 0659 11/08/24 0659 DD/ 1255 TD/TT: Personal Banking Advisor:NADIA chest 2V Reviewed date:10/16/2024 08:40:23 PM Interpretation: Performing Lab: Notes/Report: Source Facility: [place] [address] [place] [address] XRay Report Signed Patient: ABY MADRIGAL MR#: [id number] : 1965 Acct:[id number] Age/Sex: 59 / F ADM Date: 10/15/24 Loc: ER Attending Dr: Ordering Physician: Julienne Ruth Date of Service: 10/15/24 Procedure(s): XR chest 2V Accession Number(s): [id number] cc: Julienne Ruth; Kendra Murillo M.D. [place] [address] Patient Name: ABY MADRIGAL MRN: [facility]:[id number] date: 1965 Sex: F Assigned Patient Location: ER Current Patient Location: Accession/Order Number: [id number] Exam Date: 10/15/2024 17:15 Report Date: 10/15/2024 [...] M.D. Signed By: 10/15/241853 DD/ 51 TD/TT: Personal Banking Advisor:RICCO (CLEAN or CATCH) ORGAN ASSEMBLER or MICRO IF IND. Reviewed date:09/28/2024 08:19:49 PM Interpretation: Performing Lab: Notes/Report: [facility] ,Color UrineYELLOWYELLOWClarity UrineCLEARCLEARSpecific [place] Urine1.010 1.005-1.025pH Urine6.05.0-9.0Protein UrineNEGATIVENEG/TRACE mg/dLGlucose Urine UA>=1000NEGATIVE mg/dLBilirubin UrineNEGATIVENEGATIVEKetones UrineNEGATIVE NEGATIVE mg/dLBlood UrineNEGATIVENEGATIVENitrite UrineNEGATIVENEGATIVE Urobilinogen Urine0.20.2-1.0 EU/dLLeukocyte Esterase UrineNEGATIVENEGATIVEUrine Microscopic IndicatedNOPerforming Lab:see noteML - [facility] LBITP Reviewed date:07/23/2025 02:31:10 PM Interpretation: Performing Lab: Notes/Report: Source Facility: [place] [address] Cardiac Rehab Report Signed Patient: ABY MADRIGAL MR#: [id number] : 1965 Acct:[id number] Age/Sex: 60 / F ADM Date: 07/19/25 Loc: CR Attending Dr: GOMEZ JAY Ordering Physician: GOMEZ JAY Date of Service: 07/11/25 Procedure(s): ITP Accession Number(s): [id number] cc: [facility] Test Date: 2025-07-11 Pat Name: ABY MADRIGAL Department: Room: - Gender: Female Nurse Emergency Room: : 1965 Requested By: GOMEZ JAY M.D. Order Number: [id number] [place] MD: Nikki Licea Interpretive Statements Session Date: Electronically Signed On 07-20-2025 13:28:13 EDT by Nikki Licea Dictated By: Nikki Licea M.D. Signed By: 07/20/258 07/20/25 132 DD/ 09 TD/TT: Personal Banking Advisor: Reason For Referral Diagnosis 1 Facial cellulitis (L 03.211) Referral Organization [facility] Referring Provider First Name Amadou Referring Provider Last Name Lidia Referring Provider [facility] Referred Provider Avelina Guevara Referred Provider Specialty Otolaryngolo gy Referral Priority Routine Diagnosis 1 Thrombus (I82.90) Referral Organization [facility] Referring Provider First Name Amadou Referring Provider Last Name Lidia [facility] Specialty Ear, nose an d throat surgeon Referral Priority Routine Reason OPTOMETRIC TECH to ENT Diagnosis 1 Thrombus (I82.90) Referral Organization [facility] Referring Provider First Name Amadou Referring Provider Last Name Lidia Referring Provider [facility] Referred Organization [facility] Referred Provider Omar Mares Referred Address [address], [place],[address],[place] Referred Provider Specialty Otolaryngolo gy General Notes Afsaneh Perla 5 10:51:41 AM >automated message sent Clinical Notes Minda, Afsaneh 08:41:51 AM >will we see? CT report scanned in chart from 03/26/25, Lenny Valenzuela 04/02/2025 10:50:17 AM >yes, per JW Referral Priority Routine Diagnosis 1 Bakers cyst (M71.20) Referral Organization [facility] Referring Provider First Name Amadou Referring Provider Last Name Longvalencia [facility]erred Provider Umm Mejía Referred Provider Specialty Orthopedic S urgery Referral Priority Routine Reason on back Diagnosis 1 Nevus (D22.9) Referral Organization [facility] Referring Provider First Name Amadou Referring Provider Last Name Long Referring Provider [facility] Referred Provider Umm Martínez Referred Provider Specialty General Surg dez Referral Priority Routine Medications Medication SIG (Take, Route, Frequency, Duration) Notes Start Date End Date Status Singulair 10 MG 1 tablet Orally Once a day; Dura tion: 30 days 07/18/2025tiveSEROquel 25 MG1 tablet at bedtime Orally Once a day; Duration: 90 days04/20/2023ctiveTest Strips -Use as directed once daily; Duration: 90 daysDiagnosis: ctiveRosuvastatin Calcium 40 MG1 tablet Orally Once a day; Duration: 90 daysActiveCPAP Supplies --Mask and Tubing; Duration: 365 days08/15/2024ctiveGlucometer -Use as directed once daily; Duration: 365 daysDiagnosis: ctiveClopidogrel Bisulfate 75 MG1 tablet Orally Once a day; Duration: 90 daysActiveCPAP -auto cpap 5-15; Duration: 365 days ActiveAutopap (A-PAP) - -Apply mask to face using face mask daily auto cpap 5- 15; Duration: 365 days04/21/2023ctiveCarvedilol 25 MG1 tablet with food Orally Twice a day; Duration: 90 daysActiveProtonix 40 MG1 tablet Orally bid; Duration: 90 days09/20/2023ctiveAspirin 81 MG1 tablet Orally Once a dayActiveLORazepam 1 MG1 tablet Orally tid; Duration: 30 05/30/2025tiveMagnesium Oxide 400 MG1 tablet with food Orally Once a day; Duration: 90 days03/30/2025tiveJardiance 10 MG1 tablet Orally Once a day; Duration: days09/14/2025tiveIsosorbide Mononitrate ER 30 MG1 tablet Orally Once a day; Duration: 90 daysActiveLancets - Use as directed once daily; Duration: 90 daysDiagnosis: E11.9111/30/2022ctive Immunizations Vaccine Route Administration Date Status Comme nts Flu, Flucelvax (61596) 2 yrs +, single-dose syringe (7911-3162) Unknown 10/25/2020 Administered Flu, Flucelvax (05795) 2 yrs+, single-dose syringe (2704-7059)Mcurdlj8011/07/2021 PfnkyqvylzuhHBTN-KAU-0 (COVID 19 Pfizer 30mcg/0.3mL)Cnaojmj6403/11/2021 IosxontqdvgjWKMW-TXD-4 (COVID 19 Pfizer 30mcg/0.3mL)Hquaids5004/14/2021 Administered Social History Tobacco Use: Social History Observation Description Date Details (start date - stop date) Former Smoker NA - NA Tobacco Use/Smoking Question Answer Notes Patient is a former smoker When did you stop smoking?07/23/2022How long has it been since you last smoked? 6-12 monthsTobacco Control (Standard) Question Answer Notes Tobacco use: Former smoker How long has it been since you last smoked?1-5 yearsAdditional Findings: Tobacco mxj-knvvIb-fsnrrcjl cigarette smoker (10-19/day)AUDIT-C (Standard) Question Answer Notes Did you have a drink containing alcohol in the p ast year? No Drlfyx9MxwhebmagpfsbwSzwfjeuv Problems Problem Type SNOMED Code ICD Code Onset Dates Problem Status W/U Status Risk Notes Problem Type II diabetes usha litus without complication (055674767) Type 2 diabetes mellitus without complications (E11.9) ActiveconfirmedProblemHypomagnesemia (441066387)Hypomagnesemia (E83.42)Active confirmedProblemSolitary pulmonary nodule (995006613)Solitary pulmonary nodule (R91.1)ActiveconfirmedProblemHypertension (93344659)Hypertension (I10)Active confirmedProblemGastroesophageal reflux disease (578484018)GERD (gastroesophageal reflux disease) (K21.9)ActiveconfirmedProblemHypertension (67107129)HTN (hypertension) (I10)ActiveconfirmedProblemAnxiety (09462180) Anxiety (F41.9)ActiveconfirmedProblemCoronary artery disease (73608766)Coronary artery disease (I25.10)ActiveconfirmedProblemLeft ventricular hypertrophy (99735465)Left ventricular hypertrophy (I51.7)ActiveconfirmedProblemCarotid artery stenosis (88133130)Carotid artery stenosis (I65.29)ActiveconfirmedProblem Sleep apnea (70577420)Sleep apnea (G47.30)ActiveconfirmedProblemObstructive sleep apnea (67611299)Obstructive sleep apnea (G47.33)ActiveconfirmedProblem Insomnia (494007307)Insomnia (G47.00)ActiveconfirmedProblemTransient ischemic attack (014397880)TIA (transient ischemic attack) (G45.9)ActiveconfirmedProblem Migraine (20785346)Migraine (G43.909)ActiveconfirmedProblemGeneralized anxiety disorder (53263396)ALFONSO (generalized anxiety disorder) (F41.1)Activeconfirmed ProblemKidney stone (72714104)Kidney stones (N20.0)ActiveconfirmedProblem Pulmonary nodule (889533304)Pulmonary nodule (R91.1)ActiveconfirmedProblemMurmur (376221139)Murmur (R01.1)ActiveconfirmedProblemDiarrhea (10073826)Diarrhea (R19.7)ActiveconfirmedProblemEdema (894379891)Edema leg (R60.0)Activeconfirmed ProblemSolitary nodule of lung (930000666)Lung nodule (R91.1)Activeconfirmed ProblemAllergic conjunctivitis (414336679)Allergic conjunctivitis (H10.10)Active confirmedProblemAcquired hypothyroidism (316076108)Acquired hypothyroidism (E03.9)ActiveconfirmedProblemSeasonal allergic rhinitis (205288036)Seasonal allergic rhinitis (J30.2)ActiveconfirmedProblemPanic disorder (069252774)Panic disorder (F41.0)ActiveconfirmedProblemHemorrhoids (55018548)Hemorrhoids (K64.9) ActiveconfirmedProblemThrush (30193536)Thrush (B37.0)ActiveconfirmedProblem Inflamed seborrheic keratosis (539931467)Seborrheic keratoses, inflamed (L82.0) ActiveconfirmedProblemAcute non-ST segment elevation myocardial infarction (792611854)NSTEMI (non-ST elevated myocardial infarction) (I21.4)Activeconfirmed ProblemNevus (5421983448)Nevus (D22.9)ActiveconfirmedProblemHigh blood pressure (72429053)High blood pressure (I10)ActiveconfirmedProblemCellulitis and abscess of face (353277876)Facial cellulitis (L03.211)ActiveconfirmedProblemSkin sensation disturbance (61908671)Bilateral leg paresthesia (R20.2)Activeconfirmed ProblemEx-tobacco user (finding) (256319081)History of tobacco abuse (Z87.891) ActiveconfirmedProblemDerangement of knee (34663084)Internal derangement of knee, left (M23.92)ActiveconfirmedProblemRecurrent major depression (21146499) Depression, major, recurrent (F33.9)ActiveconfirmedProblemMass of left adrenal gland (77806379546777936)Left adrenal mass (E27.9)ActiveconfirmedProblem Paresthesia of upper limb (04809779)Paresthesia of upper limb (R20.2)Active confirmedProblemHypertensive urgency (027427958)Hypertensive urgency (I16.0) ActiveconfirmedProblemHypertensive emergency (205999834986927)Hypertensive emergency (I16.1)ActiveconfirmedProblemDerangement of knee (61855572)Knee internal derangement, unspecified laterality (M23.90)ActiveconfirmedProblemMRI Scan Abnormal (864220676)Abnormal MRI (R93.89)ActiveconfirmedProblemDisease caused by Severe acute respiratory syndrome coronavirus 2 (disorder) (140049298) COVID-19 virus infection (U07.1)Activeconfirmed Vital Signs Blood pressure diastolic 62 mm Hg 07/18/2025 Nqtnnw38 in07/18/2025lood pressure zorzyddm507 mm Hg07/18/20258978Yplper639.4 lbs 07/18/2025BMI35.14 kg/m207/18/2025 Encounters Encounter Location Date Provider Diagnosis [address] [address] 03/15/2025 Amadou Hoy Facial cellulitis L0 3.[address] [address] 09/27/2024 Amadou Hoy Hypertension I10 [address] [address] 11/20/2024 Amadou Hoy Hypertension I10 and Left ventricular hypertrophy I51.[address] [address] 03/30/2025 Amadou Hoy Hypomagnesemia E83.4 2 ; Thrush B37.0 and Diarrhea R19.[address] [address] 04/09/2025 Amadou Hoy Hypertension I10 ; Diabetes mellitus E11.9 ; Diarrhea R19.7 and Knee pain M25.[address] [address] 04/25/2025 Amadou Hoy Knee internal derangement, unspecified laterality M23.90 and Internal derangement of knee, left M23.92 [place] [address] [place] [facility] [place] [address] 05/11/2025 Amadou Hoy Hypertension I10 [facility] [address] [place] [address] 07/18/2025 Amadou Hoy Nevus D22.9 and Seas onal allergic rhinitis J30.2 [facility] [address] [place] [address] 03/20/2025 Amadou Hoy Facial cellulitis L0 3.211 [facility] [address] [place] [address] 09/29/2024 Amadou Hoy [facility] [place] [facility] [place] [address] 10/17/2024oug HoyInsomnia G47.00[facility] [place] [address]/oug HoyHypertension I10 and Well adult Z00.00[facility] [place] [address]/oug [facility] [place] [address]/oug [facility] [place] [address]/oug HoyInsomnia G47.00[facility] [place] [address]/03/2025 Amadou [facility] [place] [facility] [place] [place] [address]/01/2025Doug HoyInsomnia G47.00[facility] [place] [place] [address]/09/2025Doug HoyInsomnia G47.00[facility] [place] [place] [address]/ Amadou [facility] [place] [address]/12/2024Doug HoyFacial cellulitis L03.211[facility] [place] [address]/03/2025Doug HoyFacial cellulitis L03.211[facility] [place] [address]/03/2025Doug HoyHypomagnesemia E83.42 and Hypertensive urgency I16.0[facility] [place] [address] 03/29/2025Doug HoyInsomnia G47.00[facility] [place] [address]/07/2025[facility] [address] [place] [address]/07/2025Doug HoyThrombus I82.90 [facility] [place] [address] 04/02/2025Doug HoyLow potassium syndrome E87.6B[facility] [address] [place] [address]/Doug HoyFacial cellulitis L03.211 and Hypomagnesemia E83.42[facility] [place] [address]/Doug HoyHypertension I10 ; Diabetes mellitus E11.9 ; Hypokalemia E87.6 and Shortness of breath R06.02[facility] [place] [address]/01/2025Doug Hoy [facility] [place] [address] 05/10/2025Doug [facility] [place] [address]/Doug [facility] [place] [address]/Doug HoyBakers cyst M71.20 and Abnormal MRI R93.89[facility] [place] [address]/Doug [facility] [place] [address]/06/2025Doug HoyHypomagnesemia E83.42[facility] [place] [address]/07/2025Doug Hoy Insomnia G47.00[facility] [place] [address]/Doug HoyAbnormal thyroid blood test R79.89[facility] [place] [address]/[facility] [place] [address] 06/26/2025Doug HoyHypertension R42NgpvlfgEstes Park Medical Center[address] [place] [address]/Doug [facility] [address] [place] [address]/01/2025Doug Ho[facility] [place] [address]/Doug Hoy Hypertension Z01RazlrxuEstes Park Medical Center[address] [place] [address]/11/2024Doug HoyBreast cancer screening Z12.31[facility] [place] [address]/Doug [facility] [place] [address] 09/14/2025[facility] Baljit Rouse[address] [place] [address] [place] [address]/13/2025hristopher PerryNasal congestion R09.81 ; Other specified disorders of nose and nasal sinuses J34.89 ; SURESH (obstructive sleep apnea) G47.33 and Cellulitis L03.90 Assessments Encounter Date Diagnosis (ICD Code) Assessment Notes Treatment Notes Treatment Clinical Notes Section Notes 09/27/2024 Hypertension (ICD-10 - I10) 11/20/2024Hypertension (ICD-10 - I10)11/20/2024Left ventricular hypertrophy (ICD-10 - I51.7)03/15/2025Facial cellulitis (ICD-10 - L03.211)03/20/2025Facial cellulitis (ICD-10 - L03.211)if not better - need ct facial bones03/30/2025 Hypomagnesemia (ICD-10 - E83.42)03/30/2025Thrush (ICD-10 - B37.0)04/09/2025 Hypertension (ICD-10 - I10)04/09/2025Diabetes mellitus (ICD-10 - E11.9) 04/25/2025Knee internal derangement, unspecified laterality (ICD-10 - M23.90) 04/25/2025Internal derangement of knee, left (ICD-10 - M23.92)05/11/2025 Hypertension (ICD-10 - I10)07/18/2025Nevus (ICD-10 - D22.9)07/18/2025Seasonal allergic rhinitis (ICD-10 - J30.2)04/03/2025Nasal congestion (ICD-10 - R09.81) 04/03/2025Other specified disorders of nose and nasal sinuses (ICD-10 - J34.89) 11/16/2024Insomnia (ICD-10 - G47.00)12/25/2024Insomnia (ICD-10 - G47.00) 01/30/2025Insomnia (ICD-10 - G47.00)03/23/2025Facial cellulitis (ICD-10 - L03.211)03/26/2025Facial cellulitis (ICD-10 - L03.211)03/26/2025Hypomagnesemia (ICD-10 - E83.42)03/26/2025Hypertensive urgency (ICD-10 - I16.0)03/29/2025 Insomnia (ICD-10 - G47.00)03/30/2025Thrombus (ICD-10 - I82.90)04/02/2025Low potassium syndrome (ICD-10 - E87.6)04/09/2025Facial cellulitis (ICD-10 - L03.211)10/17/2024Insomnia (ICD-10 - G47.00)10/27/2024Hypertension (ICD-10 - I10)04/19/2025Hypertension (ICD-10 - I10)04/19/2025Diabetes mellitus (ICD-10 - E11.9)05/14/2025akers cyst (ICD-10 - M71.20)05/14/2025bnormal MRI (ICD-10 - R93.89)05/29/2025Hypomagnesemia (ICD-10 - E83.42)05/30/2025Insomnia (ICD-10 - G47.00)06/05/2025bnormal thyroid blood test (ICD-10 - R79.89)06/26/2025 Hypertension (ICD-10 - I10)08/15/2025Hypertension (ICD-10 - I10)08/22/2025reast cancer screening (ICD-10 - Z12.31)04/19/2025Hypokalemia (ICD-10 - E87.6) 10/27/2024Well adult (ICD-10 - Z00.00)04/09/2025Hypomagnesemia (ICD-10 - E83.42) 04/03/2025OSA (obstructive sleep apnea) (ICD-10 - G47.33)04/09/2025Diarrhea (ICD-10 - R19.7)03/30/2025Diarrhea (ICD-10 - R19.7)04/09/2025Knee pain (ICD-10 - M25.569)04/03/2025ellulitis (ICD-10 - L03.90)04/19/2025Shortness of breath (ICD-10 - R06.02)04/03/2025OtherI discussed my impression and treatment plan with Aby. Her nose no longer appears to have an infection. I encouraged her to finish Diflucan. I advised her to continue CPAP use. She may follow up asneeded 04/25/2025Other failed conservative measure adding meloxicam -motrin not effective - needs MRI - likely torn meniscus based on + Maritza 01/30/2025OtherCancelRx Response got Denied on 2025-09-14 15:22:52 for 'Invokana 100 MG Tablet'Pharmacy Notes: Prescription not found. Contact Pharmacy by other means Plan Of Treatment Pending Test Test Name [...] Contrast 03/23/2025 CBC W/AUTO DIFF 04/19/2025 PFT (93394, 32283, 89619) 06/27/2024 Covid-19 PCR (CVDTBH) 08/13/2023 GLYCOHEMOGLOBIN A1C [...] Insured Coverage Start Date Coverage End Date [facility] [place] [facility] [address] [address] [place] [address] [id number] [facility] Aby López Self - patient is [...] Z87.891 Left adrenal mass E27.9 heart disease HTNrefluxHeart attackSurgical History Surgery Date(Month/Year) Angioplasty with stent placement stent kidney kdimdkeztjvgcerkvhfkaielqntedukkCiaauakvnfpp1281Dhgfa Sairtrbl3477 Cath with stenting5Coronary angiography06/30/24Hospitalization History Reason Date(Month/Year) Cath and stent placement Hypertension-TBH4chest pain05/15
--- OUTSIDE RECORDS SUMMARY | 2025-09-27 13:12 | XMS_ITS | CCD ---
Author Organization [facility] Care Team Providers Care Pattern Carrier Name Role Phone Kendra Moran Primary Care Physician [phone] ., DR DEVINE Attending Unavailable MARKER [...] Unavailable Kendra Moran MD Primary Care Provider Kendra Moran MD Primary Care Provider [phone] Roxanne Jackson APRN Attending Provider Elie Jackson DO Attending Provider [phone] Lidia, Kendra M Primary Care Unavailable Elie Jackson Attending Unavailable Elie Jackson Admitting Unavailable Umm LANDON Attending Unavailable Hoy, Kendra Referring Unavailable FARZANA ELY Attending Unavailable HOY, KENDRA M Referring Unavailable HOY, KENDRA M Primary Care Unavailable AFSANEH JACOME Attending Unavailable HOY, KENDRA M Referring Unavailable HOY, KENDRA M Primary Care Unavailable HARDY MOREJON Attending Unavailable HOY, KENDRA M Referring Unavailable HOY, KENDRA M Primary Care Unavailable BIJAN LICEA Referring Unavailable JESUS WELCH Referring Unavailable RICHA VIRAMONTES Attending Unavailable RICHA VIRAMONTES Attending Unavailable FENG CHRISTIE Attending Unavailable FENG CHRISTIE Attending Unavailable GOMEZ SPENCE Attending Unavailable RICHA VIRAMONTES Referring Unavailable RICHA VIRAMONTES Referring Unavailable GOMEZ SPENCE Attending Unavailable GOMEZ SPENCE Attending Unavailable FENG CHRISTIE Attending Unavailable LORENZO BARR Referring Unavailable HORANI, NONA Admitting Unavailable WELCHJESUS Attending Unavailable GOMEZ SPENCE Attending Unavailable Allergies Allergy ClassificationReported Allergen(s)Allergy TypeDate of OnsetReaction(s) Facility (7 sources)ALPRAZolam; Translations: [ALPRAZOLAM]Drug Pgxrgjh27-64-7176[facility]rap [facility] (11 sources)amLODIPine; Translations: [AMLODIPINE]Drug Kqljzlj55-91-9510Xaveb (See Comments)[facility] (11 sources)Lisinopril; Translations: [LISINOPRIL]Drug Hxtksjt72-60-1090Vwsxh [facility] (4 sources)LORazepam; Translations: [lorazepam]Drug Mqndkrk67-39-3965[facility] ([facility] source)No Known Medication Allergies; Translations: [No Known Medication Allergies]Propensity to adverse reactions (disorder)[facility] Repository Medications Current Medications MedicationDrug Class(es)DatesSig (Normalized)Sig (Original)aspirin 81 mg oral tablet (8 sources)Platelet Aggregation Inhibitor, Nonsteroidal Anti-inflammatory Drug Start: 99-71-0713amci 1 tablet by mouth once dailyAspirin 81 mg tablet Active 81 MG PO Daily May 21, 2025 12:00am Complies with drug therapyStart: 09-30-2022 take 1 tablet by mouth once dailyaspirin 325 mg Oral EC Tab 325 mg = 1 tab(s), Oral, Daily, Refills(s) 0 Start Date: 09/30/22 Status:Orderedtake 1 tablet by mouth in the morningaspirin 81 mg Take 1 tablet (81 mg total) by mouth in the morning. Activeatorvastatin 40 mg oral tablet (2 sources)HMG-CoA Reductase InhibitorStart: 17-48-7286mijd 1 tablet by mouth once dailyatorvastatin 40 mg Tab 40 mg = 1 tab(s), Oral, Daily, Refills(s) 0 Start Date: 10/06/22 Status: Orderedcanagliflozin 300 mg oral tablet (10 sources)Sodium-Glucose Cotransporter 2 InhibitorStart: 90-47-0333ombd 1 tablet by mouth in the morningINVOKANA 300 mg tablet Take 1 tablet (300 mg total) by mouth in the morning. 05/27/2025 ActiveStart: 60-70-2648Pmtprbcbweuch (Invokana) 300 mg tablet Active MG PO March 03, 2025 12:00am Complies with drug therapyStart: 60-13-8170syxe 1 tablet by mouth in the morningINVOKANA 100 mg tablet Take 1 tablet (100 mg total) by mouth in the morning. 08/23/2024 Activecarvedilol 25 mg oral tablet (7 sources)alpha-Adrenergic Tammie, beta-Adrenergic BlockerStart: 03-03-2025 Carvedilol 25 mg tablet Active MG PO March 03, 2025 12:00am Complies with drug therapycitalopram 20 mg oral tablet (4 sources)Serotonin Reuptake Inhibitortake 1 tablet by mouth once daily citalopram (CeleXA) 20 mg tablet Take 20 mg by mouth daily. Activeclopidogrel 75 mg oral tablet (7 sources)P2Y12 Platelet InhibitorStart: 42-58-5752Imeiqwxultq 75 mg tablet Active MG PO March 03, 2025 12:00am Complies with drug therapyestradiol 0.1 mg/ml vaginal cream (7 sources)EstrogenStart: 23-77-2134Jrpryvowj 0.01 % (0.1 mg/gram) cream Active VAGINAL March 03, 2025 12:00am Complies with drug therapyStart: 03-03-2025 Estradiol 0.01 % (0.1 mg/gram) cream Active VAGINAL March 03, 2025 12:00am Start: 03-02-2025 End: 47-72-8774hqxugfbgL (ESTRACE) 0.01 % (0.1 mg/gram) vaginal cream Indications: Genitourinary syndrome of menopause Insert 0.5 g into the vagina nightly for 14 days, THEN 0.5 g 2 (two) times a week for 360 days.0.5 grams vaginally each night for two weeks and then twice weekly (ex. Wednesday and ). In additional to vaginal use, apply pea size amount to fingertip and rub in vulva and vaginal introitus..42.5 g 1 03/02/2025 03/11/2026 Active furosemide 20 mg oral tablet (2 sources)Loop DiureticStart: 75-19-0597sjhi 1 tablet by mouth once daily furosemide 20 mg Tab 20 mg = 1 tab(s), Oral, Daily, Refills(s) 0 Start Date: 10/06/22 Status: OrderedhydrALAZINE hydrochloride 50 mg oral tablet (4 sources)Arteriolar VasodilatorStart: 61-53-3796gqmy 1 tablet by mouth once daily as neededhydrALAZINE (APRESOLINE) 50 mg tablet Take 1 tablet (50 mg total) by mouth daily as needed (as neded). 07/28/2024 ActivehydrOXYzine hydrochloride 25 mg oral tablet (9 sources)AntihistamineStart: 88-19-3416ojcx 1 tablet by mouth four times daily as needed for anxietyHydroxyzine Hcl 25 mg tablet Active 25 MG PO Four times daily as needed for Anxiety October 06, 2021 1:00am Complies with drug therapytake 1 tablet by mouth three times daily as neededhydrOXYzine (ATARAX) 25 mg tablet Take 1 tablet (25 mg total) by mouth 3 (three) times a day as needed. Activeirbesartan 300 mg oral tablet (7 sources)Angiotensin 2 Receptor BlockerStart: 96-31-8890xhua 1 tablet by mouth once dailyIrbesartan 300 mg tablet Active 300 MG PO Daily October 06, 2021 1:00am Complies with drug ydbnkkh49 hr isosorbide mononitrate 60 mg extended release oral tablet (7 sources)Nitrate VasodilatorStart: 90-22-5944ixpt 1 tablet by mouth every twenty-four hoursIsosorbide Mononitrate 60 mg tablet extended release 24 hr Active MG PO March 03, 2025 12:00am Complies with drug therapytake 1 tablet by mouth every twenty-four hours at bedtimeisosorbide mononitrate (IMDUR) 60 mg 24 hr tablet Take 1 tablet (60 mg total) by mouth in the morning and at bedtime. Activeisosorbide dinitrate 20 mg oral tablet (2 sources)Nitrate VasodilatorStart: 17-69-4420qsvq 1 tablet by mouth twice dailyIsosorbide Dinitrate 20 mg tablet Active 20 MG PO Twice daily May 21, 2025 12:00am allow nitrate-free interval of 12-14 hrs per 24-hr period Complies with drug therapyLORazepam 1 mg oral tablet (14 sources)BenzodiazepineStart: 99-64-1547JMFktmnhs (ATIVAN) 1 mg tablet Take 1 tablet (1 mg total) by mouth as needed in the morning and 1 tablet (1 mg total) as needed at noon and 1 tablet (1 mg total) as needed in the evening for anxiety.08/15/2024 ActiveStart: 10-04-2017 End: 19-68-8019PCDpxszij (ATIVAN) 0.5 mg tablet Take 0.5 mg by mouth as needed. 10/04/2017 Activemagnesium oxide 400 mg oral tablet (3 sources)take 1 tablet by mouth in the morningmagnesium oxide (MAGOX) 400 mg tablet Take 1 tablet (400 mg total) by mouth in the morning. ActivemetFORMIN hydrochloride 500 mg oral tablet (7 sources)BiguanideStart: 84-71-5926Ibqktwfyn 500 mg tablet Active MG PO March 03, 2025 12:00am Complies with drug therapymontelukast 10 mg oral tablet (2 sources)Leukotriene Receptor AntagonistStart: 09-05-2025 End: 33-02-0732ktrw 1 tablet by mouth in the morning, then take 1 tablet by mouth once dailymontelukast (SINGULAIR) 10 mg tablet Take 1 tablet (10 mg total) by mouth in the morning. TAKE 1 TABLET BY MOUTH EVERY DAY FOR 30 DAYS. 09/05/2025 10/05/2025 Jsggyx60 hr nicotine 0.875 mg/hr transdermal system (3 sources)Cholinergic Nicotinic AgonistStart: 67-80-6212ozmzg 1 dose transdermal route every twenty-four hoursNicotine 21 mg/24 hr Patch 24 Hour Active 1 EACH TRANSDERML Daily October 07, 2021 1:00am Complies with drug therapypantoprazole 40 mg delayed release oral tablet (7 sources)Proton Pump InhibitorStart: 85-64-5938Lufdkrcrsjnd 40 mg tablet,delayed release (DR/EC) Active MG PO March 03, 2025 12:00am Complies with drug therapyQUEtiapine 25 mg oral tablet (9 sources)Atypical AntipsychoticStart: 96-87-3558hbba 1 tablet by mouth once dailyQUEtiapine (SEROquel) 25 mg tablet Take 1 tablet (25 mg total) by mouth nightly. 08/15/2025 ActiveStart: 97-61-2509Fppgcwwdeo 100 mg tablet Active MG PO March 03, 2025 12:00am Complies with drug therapyrosuvastatin calcium 40 mg oral tablet (7 sources)HMG-CoA Reductase InhibitorStart: 07-01-2024 End: 54-15-7081sygn 1 tablet by mouth in the morningrosuvastatin (CRESTOR) 40 mg tablet Take 1 tablet (40 mg total) by mouth in the morning. Activespironolactone 25 mg oral tablet (3 sources)Aldosterone AntagonistStart: 96-65-6450grvy 1 tablet by mouth in the morningspironolactone (ALDACTONE) 25 mg tablet Take 1 tablet (25 mg total) by mouth in the morning. 05/14/2025 Active Completed/Discontinued Medications MedicationDrug Class(es)DatesSig (Normalized)Sig (Original)amitriptyline hydrochloride 100 mg oral tablet (9 sources)Tricyclic AntidepressantStart: 10-06-2021 End: 98-11-8194ogry 1 tablet by mouth once daily at bedtimeAmitriptyline 100 mg tablet Discontinued 100 MG PO Daily at bedtime October 06, 2021 1:00am May 21, 2025 2:20pmmetoprolol tartrate 100 mg oral tablet (5 sources)beta-Adrenergic BlockerStart: 08-02-2019 End: 92-06-1733uesc 1 tablet by mouth twice dailyMetoprolol Tartrate 100 mg tablet Discontinued 100 MG PO Twice daily October 06, 2021 1:00am March 03, 2025 10:54am Problems Active Problems Problem ClassificationProblemDateDocumented DateEpisodic/ChronicAcute myocardial infarction (2 sources)Non-ST elevation (NSTEMI) myocardial infarction; Translations: [Non- ST elevation (NSTEMI) myocardial infarction]Onset: 56-54-6119AyesftiSxwyuyr disorders (10 sources)Anxiety; Translations: [Panic disorder]Onset: ChronicComment on above:Problem List clean-up per request of Phys. 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 and other heart disease (7 sources)Coronary arteriosclerosis; Translations: [Atherosclerotic heart disease of inupiat coronary artery without angina pectoris]Onset: 11-26-2022 62-47-6542MhcfcgzAoxohcgg atherosclerosis and other heart disease (2 sources)Presence of coronary angioplasty implant and graft; Translations: [Presence of coronary angioplastyimplant and graft]Onset: 01-41-2850Muszvhvi Disorders of lipid metabolism (1 source)Hyperlipidemia, unspecified; Translations: [HYPERLIPIDEMIA UNSPECIFIED]Onset: 51-03-4180EhjzrdyYtsphwkikx disorders (4 sources)Gastroesophageal reflux disease; Translations: [Gastro-esophageal reflux disease without esophagitis]Onset: 926894-12-7938YiihwzmHjfsdzkob hypertension (9 sources)Hypertensive disorder; Translations: [Essential (primary) hypertension]Onset: 441858-25-9883KwjohznThqioemuyzllp symptoms and ill- defined conditions (6 sources)Increased frequency of urination; Translations: [Nocturia]08-02-2019 EpisodicHeadache; including migraine (2 sources)Mysgckef08-47-7804ZhdwquiCanzb valve disorders (2 sources)Heart -22-2213TnogcmaoBwlicqzfags (2 sources)Ifhxkypvkug84-34-7531GaebljycInkfgzdsipos with complications and secondary hypertension (2 sources)Hypertension secondary to endocrine disorders; Translations: [Hypertension secondary to endocrine disorders]Onset: 55-33-5471Hboaksd Inflammation; infection of eye (except that caused by tuberculosis or sexually transmitteddisease) (2 sources)Allergic eephdfegleivuc46-29-8194YrtgucttVvdthaoeqdog diseases of female pelvic organs (5 sources)Bacterial vaginosis; Translations: [Acute vaginitis]Onset: 10-18-2017 13-57-2796ChodpzrlGjhjrcozwg disorders (2 sources)Genitourinary syndrome of menopause; Translations: [Other specified menopausal and perimenopausal disorders]Onset: 021543-74-7301XkcmirxXjnm disorders (5 sources)Depressive disorder; Translations: [Severe recurrent major depression]20-64-6948BnqximtRhpctan on above:Problem List clean-up per request of Phys. 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]Onset: 61-26-7511DnhgklqXnucj female genital disorders (1 source)Postcoital bleeding; Translations: [Postcoital and contact bleeding] 92-37-5891ZyuurmeMfkux female genital disorders (1 source)Postcoital and contact bleeding; Translations: [Postcoital and contact bleeding]Onset: 04-66-0351JjdhwzpZglzh female genital disorders (1 source)Vaginal irritation; Translations: [Other specified noninflammatory disorders of vagina]00-83-2377UbmydhklQpyyh female genital disorders (1 source)Other specified noninflammatory disorders of vagina; Translations: [Other specified noninflammatorydisorders of vagina]Onset: 02-46-3297Kztetzfy Other gastrointestinal disorders (2 sources)Adrenal alpt03-09-0372OmxreulbHvyqp lower respiratory disease (2 sources)Solitary pulmonary nodule; Translations: [Solitary pulmonary nodule] Onset: 30-55-4488IvavvixdKxhzn nervous system disorders (2 sources)Covgvbvzlrn98-93-4486QniprsycJqdbk non-traumatic joint disorders (3 sources)Pain in left knee; Translations: [Left knee pain]Onset: 05-21-2025 43-94-9883FeckqpwwSnetx nutritional; endocrine; and metabolic disorders (2 sources)Body mass index 30+ - -12-1627ZqgsidaKyfxx skin disorders (2 sources)Inflamed seborrheic jnruvosvi57-26-1723FaohwhfaBbivj upper respiratory infections (4 sources)Viral upper respiratory tract infection; Translations: [Acute upper respiratory infection, unspecified]70-20-6512DuzswjykOjsaxraail and visceral atherosclerosis (2 sources)Atherosclerosis of renal artery; Translations: [Atherosclerosis of renal artery]Onset: 70-30-2794UgqbpnySrhuzzqn codes; unclassified (2 sources)Obstructive sleep apnea nhucryff65-04-8050VjlckkeXasqigkh codes; unclassified (1 source)Obstructive sleep apnea (adult) (pediatric); Translations: [OBSTRUCTIVE SLEEP APNEA]Onset: 92-38-9539XtvzfapEgviwckv codes; unclassified (2 sources)Family history of malignant neoplasm of breast in first degree relative; Translations: [Family history of malignant neoplasm of breast] 09-93-3448WdtnaxoyWtgahrec codes; unclassified (1 source)Family history of malignant neoplasm of breast; Translations: [Family history of malignant neoplasmof breast]Onset: 48-67-6493PpmaegotDgdvvuu and strains (4 sources)Strain of knee; Translations: [Strain of unspecified muscle(s) and tendon(s) at lower leg level, left leg, initial encounter]73-40-3701Pjoxppek Substance-related disorders (4 sources)Nicotine dependence; Translations: [Nicotine dependence, cigarettes, uncomplicated]Onset: 880789-11-0574ZswzpprXwaaoixdn cerebral ischemia (6 sources)Transient cerebral ischemia; Translations: [Transient cerebral ischemic attack, unspecified]Onset: 325037-93-2785LfekykfJagromovemmp (2 sources)Injury of left tmufic78-04-1350Hafjvolxbdpi (1 source)CONTACT W/AND (SUSP) EXPOS COVID-19; Translations: [CONTACT W/AND (SUSP) EXPOS COVID-19]Onset: 22-90-1207Pqszcjonvlqd (1 source)ESTABLISHED PATIENTOnset: 90-11-8580Ugxgjacwdzhr (1 source)Resistant hypertension; Translations: [Resistant hypertension]Onset: 10-05-2024 Past or Other Problems Problem ClassificationProblemDateDocumented DateEpisodic/ChronicCalculus of urinary tract (5 sources)History of calculus of kidney; Translations: [Kidney stone]Onset: 886386-66-1058KiruzpnsPtqxrvqfqqj chest pain (2 sources)Chest pain, unspecified; Translations: [Chest pain, unspecified] Onset: 13-47-9541ZtnzfbumJfznf aftercare (1 source)prison (current) use of aspirin; Translations: [ALF CURRENT USE OF ASPIRIN]Onset: 30-56-0842VtjscniePfqne aftercare (1 source)Other fpc (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 therapy; Translations: [OTH ALF CURRENT DRUG THERAPY]Onset: 01-96-4679VkliomdkIwzoy and unspecified benign neoplasm (2 sources)Benign neoplasm of left adrenal gland; Translations: [Benign neoplasm of left adrenal gland]Onset: 30-12-1664ZqtxeinkBxfea circulatory disease (1 source)Personal history of transient ischemic attack (TIA), and cerebral infarction without residual deficits; Translations: [PERS HX TIA AND CI NO RESID DEFICIT]Onset: 72-27-8069PgddisyeAdzud connective tissue disease (3 sources)Other specified soft tissue disorders; Translations: [OTHER SPEC SOFT TISSUE DISORDERS]Onset: 23-06-3615VlgfebgsNitis screening for suspected conditions (not mental disorders or infectious disease) (6 sources)Encounter for screening for malignant neoplasm of colon; Translations: [Abnormal result of other cardiovascular function study]Onset: 02-11-2593VioiqktwGjqtq skin disorders (1 source)Other seborrheic keratosis; Translations: [OTHER SEBORRHEIC KERATOSIS] Onset: 49-47-1704FjwnjedbBuhvhxrx codes; unclassified (1 source)Acquired absence of other specified parts of digestive tract; Translations: [ACQ ABSENCE OTH PART DIGESTV TRACT]Onset: 98-92-5405Tyozhwcv Residual codes; unclassified (1 source)Acquired absence of both cervix and uterus; Translations: [ACQUIRED ABSENCE BOTH CERVIX AND UTERUS]Onset: 51-29-5688IolotctlIkthkbnn codes; unclassified (1 source)Family history of malignant neoplasm of digestive organs; Translations: [FAM HX MALIG NEOPLASM DIGESTIV ORGN]Onset: 20-65-5927Hsisnzqx Residual codes; unclassified (4 sources)Localized edema; Translations: [LOCALIZED EDEMA]Onset: 10-02-2022 EpisodicResidual codes; unclassified (1 source)Edema, unspecified; Translations: [EDEMA UNSPECIFIED]Onset: 09-28-2022 EpisodicScreening and history of mental health and substance abuse codes (1 source)Personal history of nicotine dependence; Translations: [PERSONAL HISTORY OF NICOTINE DEPEND]Onset: 85-49-6854CjnqurjbFizsleazplwa (2 sources)Drug therapy kycmedl51-27-6628Nxytrfebbydl (3 sources)Onset: 499593-71-5926Kxlcpedaiewm (1 source)Resistant hypertension; Translations: [Resistant hypertension]Onset: 01-02-2025 Results Test NameValueInterpretationReference RangeFacilityFollow-Upon 09-18-2025 Follow-[id number] Aby Madrigal 1965 F Date Provider Department Center 09/18/2025 [facility]CC Family History Problem Relation Age of Onset Lung cancer Mother Accidental Father Lung cancer Sister Family Status - Relation Status Age at Mother Father Sister Brother Alive Level of Service:[address] [place] OFFICE/OUTPATIENT ESTABLISHED MDM 10 MIN (GC)[facility] LUNG SCREENINGon 84-98-5784CXDJ LUNG SCREENINGThis is a summary report. The complete report is available in the patient's medical record. If you cannot access the medical record, please contact the sending organization for a detailed fax or copy. CLINICAL INFORMATION: Screening visit: Personal history of tobacco use/personal history of nicotine dependence. Lung cancer screening. The patient is [...] up LDCT in 1 Year Electronically signed: Jessy Garcia. Not VldtdInvalid Interpretation [facility]36on [id number] from cardiac rehab came to the office [...] LE edema. Any recommendations? Please advise. Thanks. [facility] CenterGRAM STAINon 86-28-4544Juqvqvgmlbp observation Gram stain Nom (Unsp spec)GRAM STAIN Negative for Bacterial Vaginosis (Based on Wallace scoring, validated for vaginal specimens) No yeast seen This method has only been evaluated for women of childbearing age and postmenopausal women on estrogen replacement therapy.[facility] Ambulatory PPGComment on above:Performed By: #### GRAM #### [facility] ([facility]) [address] [place] [address] VIRURINALYSISon 33-47-3483Xkmnioqsj Ql (U)NegativeNormal NegativeWadsworth-Rittman Hospital Ambulatory PPGComment on above:Order Comment: Urine received without preservative. Delays in transport may affect results. Interpret with caution. A clinical correlation is recommended.Performed By: #### UA #### [facility] ([facility]) [address] [place] [address] VIRBLOOD/HGBNegativeNormalNegativeWadsworth-Rittman Hospital Ambulatory PPGComment on above:Order Comment: Urine received without preservative. Delays in transport may affect results. Interpret with caution. A clinical correlation is recommended.Performed By: #### UA #### [facility] ([facility]) [address] [place] [address] VIRColor (U)YellowNormalYellowWadsworth-Rittman Hospital Ambulatory PPG Comment on above:Order Comment: Urine received without preservative. Delays in transport may affect results. Interpret with caution. A clinical correlation is recommended.Performed By: #### UA #### [facility] ([facility]) [address] [place] [address] VIRGlucose Ql (U)500 mg/dLAbnormalNegClinton Memorial Hospital Ambulatory PPGComment on above:Order Comment: Urine received without preservative. Delays in transport may affect results. Interpret with caution. A clinical correlation is recommended.Performed By: #### UA #### [facility] ([facility]) [address] [place] [address] VIRKetones Ql (U)NegativeNormalNegativeWadsworth-Rittman Hospital Ambulatory PPGComment on above:Order Comment: Urine received without preservative. Delays in transport may affect results. Interpret with caution. A clinical correlation is recommended.Performed By: #### UA #### [facility] ([facility]) [address] [place] [address] VIRLeukocyte esterase Test strip Ql (U)NegativeNormalNegative [facility] Ambulatory PPGComment on above:Order Comment: Urine received without preservative. Delays in transport may affect results. Interpret with caution. A clinical correlation is recommended.Performed By: #### UA #### [facility] ([facility]) [address] [place] [address] VIRNitrite Ql (U)NegativeNormalNegativeWadsworth-Ritt[facility] Ambulatory PPGComment on above:Order Comment: Urine received without preservative. Delays in transport may affect results. Interpret with caution. A clinical correlation is recommended.Performed By: #### UA #### [facility] ([facility]) [address] [place] [address] VIRPH,URINE6.5Dgkzfq5.0-8.5PUniversity [facility] PPG Comment on above:Order Comment: Urine received without preservative. Delays in transport may affect results. Interpret with caution. A clinical correlation is recommended.Performed By: #### UA #### [facility] ([facility]) [address] [place] [address] VIRProtein Ql (U)NegativeNormalNegativeWadsworth-Ritt[facility] Ambulatory PPGComment on above:Order Comment: Urine received without preservative. Delays in transport may affect results. Interpret with caution. A clinical correlation is recommended.Performed By: #### UA #### [facility] ([facility]) [address] [place] [address] VIRSpecific gravity (U) [Rel density]1.327Pvtpta0.003-1.035 [facility] Ambulatory PPGComment on above:Order Comment: Urine received without preservative. Delays in transport may affect results. Interpret with caution. A clinical correlation is recommended.Performed By: #### UA #### [facility] ([facility]) [address] [address] [place] [address] VIRTURBIDITYClearNormalClearWadsworth-Rittman Hospital Ambulatory PPG Comment on above:Order Comment: Urine received without preservative. Delays in transport may affect results. Interpret with caution. A clinical correlation is recommended.Performed By: #### UA #### [facility] ([facility]) [address] [place] [address] VIRUROBILINOGEN<1.1 eu/dLNormal<1.1 eu/dLWadsworth-Rittman Hospital Ambulatory PPGComment on above:Order Comment: Urine received without preservative. Delays in transport may affect results. Interpret with caution. A clinical correlation is recommended.Performed By: #### UA #### [facility] ([facility]) [address] [place] [address] VIRURINE CULTUREon 70-56-9226Mvoesghy identified Cx Nom (U) CULTURE RESULTS 10-50,000 ORGANISMS/mL NORMAL UROGENITAL FLORAGardens Regional Hospital & [facility] - [place] Ambulatory PPGComment on above:Performed By: #### UC #### [facility] ([facility]) [address] [place] [address] VIRUrinalysison 10-65-7535Vwctjcfbd Ql (U)NegativeNegative [facility] Health SystemColor (U)YellowYellowProLawrence Medical Center Health SystemGlucose (U) [Mass/Vol]500 mg/dLAbnormalNegativeGreen Cross Hospital SystemHemoglobin Auto test strip Ql (U)NegativeNegativeShelby Memorial Hospitalca Health SystemInterpretation and review of laboratory resultsAbnormalProCleveland Clinic Hillcrest Hospitalca Health SystemKetones (U) [Mass/Vol]Negative NegativeProKettering Memorial Hospital SystemLeukocyte esterase Auto test strip Ql (U)Negative NegativeKettering Health Washington Township Health SystemNitrite Auto test strip Ql (U)NegativeNegative [facility] Health SystempH (U)6.0 [pH]5.0 - 8.5PWest Calcasieu Cameron Hospitalica Health SystemProtein (U) [Mass/Vol]NegativeNegativeProCleveland Clinic Hillcrest Hospitalca Health SystemSpecific gravity Refractometry automated (U) [Rel density]1.0101.003 - 1.035ProMedica Health SystemTurbidity Ql (U)ClearClearPSt. Mary's Medical Center SystemUrobilinogen Qn (U){Eleuterio'U}/dL<1.1 eu/dLKettering Health Washington Township Health SystemUrine received without preservative. Delays in transport may affect results. Interpret with caution. A clinical correlation is recommended.ProMedica Health SystemKettering Health Washington Township Health SystemYEAST CULTUREon 39-48-4839XKJWS CULTURECULTURE RESULTS No yeast isolated at 5 days FUNGAL SMEAR No fungal elements seen On Direct SmearGardens Regional Hospital & [facility] [place] Ambulatory PPGComment on above:Performed By: #### YSTCUL #### [facility] ([facility]) [address] [place] [address] VIROffice Visiton 39-12-6211Hfxmhg-up [id number] Aby Madrigal 1965 F Date Provider Department Center 06/25/2025 GOMEZ KENDALL [facility] Family History Problem Relation Age of Onset Lung cancer Mother Accidental Father Lung cancer Sister Family Status - Relation Status Age at Mother Father Sister Brother Alive Level of Service:[address] [place] OFFICE/OUTPATIENT ESTABLISHED MOD MDM 30 [facility]36on [phone] to daughter who stated she has everthing taken care of she didn't need to talk to us. Daughter states Aby had a cath with a stent placement. Nothing needed at this timeNormalUniGlenbeigh Hospital36Please call pt regarding stress test. Daughter Rosita [phone] HospitalBASIC METABOLIC PANELon 59-08-0832Dygur gap [Moles/Vol]9 mmol/L Normal7-20Un[address] HospitalComment on above:Performed By: #### [id number] #### [facility] ([facility]) [address] [place], [place] [address]Kvmquwt [Mass/Vol]8.1 mg/dLLow8.6-10.3Un[address] HospitalComment on above:Performed By: #### [id number] #### [facility] ([facility]) [address] [place], [place] [address]Xehabpxz [Moles/Vol]111 mmol/NErsf85-151Pdevrpgtpe[address] HospitalComment on above:Performed By: #### [id number] #### [facility] ([facility]) [address] [place], [place] [address]GR2 [Moles/Vol]24 mmol/JJpjnho65-26RqvbylevpvWilson [address] HospitalComment on above:Performed By: #### [id number] #### [facility] ([facility]) [address] [place], [place] [address]Kkmksnkkyx [Mass/Vol]0.90 mg/dLNormal0.60-1.20Un[address] HospitalComment on above:Performed By: #### [id number] #### [facility] ([facility]) [address] [place] [address]LYJWZBFQEQ FILTRATION RATE ML/MIN/1.73 SQ M.APKPAZECV13.2 mL/min/1.73m*2Normal>60.[address] HospitalComment on above: Result Comment: The [facility]???s estimated glomerular filtration rate (eGFR) will no [...] potential consequences that do not disproportionately affect anyone group of individuals.Performed By: #### [id number] #### [facility] ([facility]) [address] [place] [address]Dxdggcc [Mass/Vol]87 mg/fHZflixy34-748FmudbzzjgnWilson [address] HospitalComment on above:Performed By: #### [id number] #### [facility] ([facility]) [address] [place] [address]Enfcaqxls [Moles/Vol]3.7 mmol/LNormal3.5-5.1Un[address] HospitalComment on above:Performed By: #### [id number] #### [facility] ([facility]) [address] [place] [address]Nvulwz [Moles/Vol]140 mmol/XAeauie856-403FdjbyramdhWilson [address] HospitalComment on above:Performed By: #### [id number] #### [facility] ([facility]) [address] [place] [address]Jqxw nitrogen [Mass/Vol]13 mg/dLNormal7-25Un[address] HospitalComment on above:Performed By: #### [id number] #### [facility] ([facility]) [address] [place], [place] [address]YLPM NITROGEN/CREATININE (MASS RATIO) IN SER/PLAS14.4Normal [facility] NorthComment on above:Performed By: #### [id number] #### [facility] ([facility]) [address] [place], [place] [address]WAWfw 56-49-4965Jevucxsiopv distribution width (RBC) [Ratio]16.5 %High11.5-15.0Un[address] HospitalComment on above:Performed By: #### [id number] #### [facility] ([facility]) [address] [place], [place] [address]DNOJBZFZQFH MEAN CORPUSCULAR HEMOGLOBIN CONCENTRATION (G/DL) BY KRMIDJXFV41.8 g/dLLow32.0-35.0Un[address] Hospital Comment on above:Performed By: #### [id number] #### [facility] ([facility]) [address] [place], [place] [address]Nbltikyjbf (Bld) [Volume fraction]35.2 %Low36.0-45.0 [facility] NorthComment on above:Performed By: #### [id number] #### [facility] ([facility]) [address] [place], [place] [address]Fwhalwjqyx (Bld) [Mass/Vol]11.2 g/dLLow12.0-15.0 [facility] NorthComment on above:Performed By: #### [id number] #### [facility] ([facility]) [address] [place], [place] [address]WFM (RBC) [Entitic mass]26.9 pgLow27.0-33.0Un[address] HospitalComment on above:Performed By: #### [id number] #### [facility] ([facility]) [address] [place], [place] [address]GWF (RBC) [Entitic vol]84.6 jJUargtx51.0-98.0[address] HospitalComment on above:Performed By: #### [id number] #### [facility] ([facility]) [address] [place], [place] [address]GWOKMJCHC (10*3/UL) IN BLOOD AUTOMATED DSSTB580 10*3/uL Teyekb480-038JhdwjiiswqWilson [address] HospitalComment on above:Performed By: #### [id number] #### [facility] ([facility]) [address] [place], [place] [address]RGN (Bld) [#/Vol]4.16 10*6/uLNormal3.80-5.00Un[address] HospitalComment on above:Performed By: #### [id number] #### [facility] ([facility]) [address] [place], [place] [address]HYD (Bld) [#/Vol]5.53 10*3/uLNormal4.00-10.60Un[address] HospitalComment on above:Performed By: #### [id number] #### [facility] ([facility]) [address] [place], [place] [address]HZIJS PANELon 68-99-7360XXQK/HDL2.3 mg/dLNormal [facility] NorthComment on above:Performed By: #### [id number] #### [facility] ([facility]) [address] [place], [place] [address]Npextexezds [Mass/Vol]95 mg/hRJjo673-210CpsdaoxwwjWilson [address] HospitalComment on above:Performed By: #### [id number] #### [facility] ([facility]) [address] [place], [place] [address]Hkwenkaje [Mass/Vol]61 mg/dLNormal<150Un[address] HospitalComment on above:Result Comment: TRIGLYCERIDE REFERENCE RANGE: 20 YEARS AND OLDER CARDIOVASCULAR RISK LESS THAN 150 mg/dL LOW RISK 150 TO 199 mg/dL BORDERLINE RISK 200 mg/dL AND GREATER HIGH RISKPerformed By: #### [id number] #### [facility] ([facility]) [address] [place], [place] [address]Yhixiidxc [Mass/Vol]42 mg/dLNormal0-160Un[address] HospitalComment on above:Performed By: #### [id number] #### [facility] ([facility]) [address] [place], [place] [address]Febptxrpy [Mass/Vol]41 mg/aQPlqdrh08-38VgmdbkcmyeWilson [address] HospitalComment on above:Performed By: #### [id number] #### [facility] ([facility]) [address] [place], [place] [address]YUZ HDL CHOL. (LDL+VLDL)54NormalUniversMetroHealth Cleveland Heights Medical CenterComment on above:Performed By: #### [id number] #### [facility] ([facility]) [address] [place], [place] [address]IUCDV VLDL-C12 mg/dLNormal0-40Un[address] HospitalComment on above:Performed By: #### [id number] #### [facility] ([facility]) [address] [place], [place] [address]WVSWRZCAyf 87-96-8689BXJYZXXTJzvvgyddz instructions given to patient and family. Patient left via wheelchair, private vehicle.NormalUnWilson Street HospitalPOCT GLUCOSE METER UNSOLICITED RESULTSon 57-92-4518Oardpaz [Mass/Vol]135 mg/dLHigh 70-105Un[address] HospitalComment on above:Order Comment: Waived Testing in the ED is performed under the ED CLIA certificate #[id number].Result Comment: [id number] By: #### [id number] #### [facility] ([facility]) [address] [place], [place] [address]Kbqgzwi [Mass/Vol]89 mg/nVFxkysr16-668KottemvoakWilson [address] HospitalComment on above:Order Comment: Waived Testing in the ED is performed under the ED CLIA certificate #[id number].Result Comment: [email or web address] Performed By: #### [id number] #### [facility] ([facility]) [address] [place], [place] [address]WUYL-GV (HEPARIN LEVEL)on 88-21-3016VYEFWTF UNFRACTIONATED (U/ML) IN PPP BY CHROMOGENIC METHOD0.53 IU/mLNormal0.3-0.7 [facility] NorthComment on above:Order Comment: Check anti-Xa level every 6 hours while on heparin infusion, or per protocol.Result Comment: Rivaroxaban and Apixaban will interfere with the anti Xa assay used to monitor UFH and LMWH.Performed By: #### [id number] #### [facility] ([facility]) [address] [place], [place] [address]TYHPjk 03-10-6635JTZNCUYIF PARTIAL THROMBOPLASTIN TIME IN PPP BY COAGULATION ASSAY37.6 JlqjirzYgqj16.0-35.0Un[address] Hospital Comment on above:Order Comment: Baseline aPTT before initiating heparin infusion.Result Comment: Clinical significance of the APTT is questionable in the presence of heparin.Performed By: #### [id number] #### [facility] ([facility]) [address] [place], [place] [address]IKQIK METABOLIC PANELon 55-03-8762Xgnep gap [Moles/Vol]10 mmol/L Normal7-20[address] HospitalComment on above:Performed By: #### [id number] #### [facility] ([facility]) [address] [place], [place] [address]Tpkunis [Mass/Vol]8.6 mg/dLNormal8.6-10.3Un[address] HospitalComment on above:Performed By: #### [id number] #### [facility] ([facility]) [address] [place], [place] [address]Qeabfjbl [Moles/Vol]110 mmol/MYzgd69-147PspynuzfpxWilson [address] HospitalComment on above:Performed By: #### [id number] #### [facility] ([facility]) [address] [place], [place] [address]HQ7 [Moles/Vol]26 mmol/TDxznaj30-74DsudmvogdpWilson [address] HospitalComment on above:Performed By: #### [id number] #### [facility] ([facility]) [address] [place], [place] [address]Kqppugijdy [Mass/Vol]1.07 mg/dLNormal0.60-1.20[address] HospitalComment on above:Performed By: #### [id number] #### [facility] ([facility]) [address] [place], [place] [address]TRFWUVZTRI FILTRATION RATE ML/MIN/1.73 SQ M.PREDICTED 59.5 mL/min/1.73m*2Low>60.0[address] HospitalComment on above: Result Comment: The [facility]???s estimated glomerular filtration rate (eGFR) will no [...] potential consequences that do not disproportionately affect anyone group of individuals.Performed By: #### [id number] #### [facility] ([facility]) [address] [place], [place] [address]Erplber [Mass/Vol]95 mg/nRJvufvl05-132AtyqijsqitWilson [address] HospitalComment on above:Performed By: #### [id number] #### [facility] ([facility]) [address] [place], [place] [address]Ohfjzaezd [Moles/Vol]3.8 mmol/LNormal3.5-5.1Un[address] HospitalComment on above:Performed By: #### [id number] #### [facility] ([facility]) [address] [place], [place] [address]Rfpkrj [Moles/Vol]142 mmol/KErywca945-205VterpxqzqzWilson [address] HospitalComment on above:Performed By: #### [id number] #### [facility] ([facility]) [address] [place], [place] [address]Syuv nitrogen [Mass/Vol]16 mg/dLNormal7-25Un[address] HospitalComment on above:Performed By: #### [id number] #### [facility] ([facility]) [address] [place], [place] [address]MJIS NITROGEN/CREATININE (MASS RATIO) IN SER/PLAS15.[address] HospitalComment on above:Performed By: #### [id number] #### [facility] ([facility]) [address] [place], [place] [address]YSXhb 83-71-6133Bdobgmgbgjz distribution width (RBC) [Ratio]16.6 %High11.5-15.0Un[address] HospitalComment on above: Performed By: #### [id number] ####[facility] ([facility])[address] [place], [place] [address]FILIUJLRFBI MEAN CORPUSCULAR HEMOGLOBIN CONCENTRATION (G/DL) BY MDBKOTVUB42.4 g/dLLow32.0-35.0Un[address] HospitalComment on above:Performed By: #### [id number] ####[facility] ([facility])[address] [place], [place] [address]Tkmcxaqffc (Bld) [Volume fraction]36.6 %Gdqeco84.0-45.0 [facility] NorthComment on above:Performed By: #### [id number] ####[facility] ([facility])[address] [place], [place] [address]Ovnruihjdj (Bld) [Mass/Vol]11.5 g/dLLow12.0-15.0Un[address] HospitalComment on above:Performed By: #### [id number] ####[facility] ([facility])[address] [place], [place] [address]XBU (RBC) [Entitic mass]26.6 pgLow27.0-33.0Un[address] HospitalComment on above:Performed By: #### [id number] ####[facility] ([facility])[address] [place], [place] [address]FDR (RBC) [Entitic vol] 84.5 yQFrknak46.0-98.0[address] HospitalComment on above: Performed By: #### [id number] ####[facility] ([facility])[address] [place], [place] [address]NQIJFWGQN (10*3/UL) IN BLOOD AUTOMATED [id number] 10*3/uLNormal 150-400Un[address] HospitalComment on above:Performed By: #### [id number] ####[facility] ([facility])[address] [place] [address]OCR (Bld) [#/Vol]4.33 10*6/uLNormal3.80-5.00Un[address] HospitalComment on above:Performed By: #### [id number] ####[facility] ([facility])[address] [place] [address]CDJ (Bld) [#/Vol]4.78 10*3/uLNormal4.00-10.60[address] HospitalComment on above:Performed By: #### [id number] ####[facility] ([facility])[address] [place] [address]EBQAUKKij 06-07-2025 CONSULT Attestation with edits by Bijan Licea MD [...] personal documentation from me. Bijan Licea MD, [facility] Cardiology Consult Note Reason for Consult: Positive stress test HPI: Aby Madrigal is a 59 y.o. female with a past medical history of hyperaldosteronism, hypertension, TIA, panic attacks and sleep apnea, prior history of smoking. Patient transferred to [facility] from [facility]. She presented to outside hospital with 1 [...] outpatient but never done. She came to [facility] on 06/04/2025 with chest pain she describes [...] event of chest pain. On presentation to [facility], labs revealed troponin of 5. And [...] Obstructive sleep apnea, Panic attacks, and Stroke ([facility]/HCC). Surgical History She has a past surgical [...] Admission[1] Last Recorded Vit (more content not included)...NormalUnWilson Street HospitalHIGH SENSITIVITY TROPONIN Ion 58-33-6584UR TROPONIN I (NG/L)5 ng/L Normal<15Un[address] HospitalComment on above:Performed By: #### [id number] #### [facility] ([facility]) [address] [place], [place] [address]XDte 82-04-6867SLT&P reviewed. The patient was examined and there are changes to the H&P. Mrs. Madrigal continues to have chest pain at rest. Plan coronary angiography. NormalSelect Medical Specialty Hospital - Cincinnati NorthNURSNOTEon 84-63-3058NLBTBTSVShkzra was informed by [facility] that during transport patient reported 7/10 chest pain. [facility] administered Fentanyl 75 mcg at 0221, Nitroglycerin was not given due to bradycardia. Chest pain has resolved since Fentanyl was given per patient. Patient arrived with IV Heparin running at 18/units/kg, IV temporarily discontinued awaiting orders.NormalSelect Medical Specialty Hospital - Cincinnati NorthPLATELET COUNTon 25-58-7663YRHUKQCYT (10*3/UL) IN BLOOD AUTOMATED [id number] 10*3/uLNormal 150-400Un[address] HospitalComment on above:Performed By: #### [id number] #### [facility] ([facility]) [address] [place], [place] [address]ILFF GLUCOSE METER UNSOLICITED RESULTSon 45-60-9639Pwfncwp [Mass/Vol]129 mg/eGMhbo68-054VwsyttooscWilson [address] HospitalComment on above:Order Comment: Waived Testing in the ED is performed under the ED CLIA certificate #[id number].Result Comment: [id number] By: #### [id number] #### [facility] ([facility]) [address] [place], [place] [address]Ozbjyhe [Mass/Vol]97 mg/bJMezjfz59-430Nuibdeoovz[address] HospitalComment on above:Order Comment: Waived Testing in the ED is performed under the ED CLIA certificate #[id number].Result Comment: [email or web address] Performed By: #### [id number] #### [facility] ([facility]) [address] [place], [place] [address]Bkahkbd [Mass/Vol]97 mg/eUGhhuus06-843RdzuipvwpoWilson [address] HospitalComment on above:Order Comment: Waived Testing in the ED is performed under the ED CLIA certificate #[id number].Result Comment: [email or web address] Performed By: #### [id number] #### [facility] ([facility]) [address] [place], [place] [address]Gdfeuw Onlyon 23-24-6624Mcvkfj [id number] Aby Madrigal 1965 F Date Provider Department Center 06/05/2025 [id number], HISTORICAL CARD [facility] Family History Problem Relation Age of Onset Lung cancer Mother Accidental Father Lung cancer Sister Family Status - Relation Status Age at Mother Father Sister Brother AliveNormalUniversity of University Medical Center Of El PasoX-ray reportOrdered By: Marcell White on 07-16-8718Kserz reportFIROHIOHEALTH O'BLENESS [facility] [address] [place] [address] XRay Report Signed Patient: Aby Madrigal MR#: [id number] : 1965 Acct:[id number] Age/Sex: 59 / F ADM Date: 5 [facility]: [facility] Room: Type: [facility] Attending Dr: Elie Jackson DO Copies to: Elie Jackson DO~ Ordering Provider: Elie Jackson DO Date of Service: 05/21/25 XR/XR knee LT 4V*: M25.562 - Pain in left knee ([id number]) XR/XR knee RT 2V: M25.562 - Pain [...] White M.D. 05/21/2025 7:01 PM Dictation Location: [place] [address] Transcribed By: [facility] 05/21/251900 Dictated By: Marcell White DO 05/21/251858 Signed By: 05/21/251900 [facility] 4[facility]*on 90-87-0431QF knee LT 4V* [facility] [address] [place] [address] XRay Report Signed Patient: Aby Madrigal MR#: [id number] : 1965 Acct:[id number] Age/Sex: 59 / F ADM Date: 05/21/25 Loc: [facility] Room: Type: [facility] CLI Attending Dr: Elie Jackson DO Copies to: Elie Jackson DO Ordering Provider: Elie Jackson DO Date of Service: 05/21/25 XR/XR knee LT 4V*: M25.562 - Pain in left knee ([id number]) XR/XR knee RT 2V: M25.562 - Pain [...] IMPRESSION: Mild medial degeneration. Impression dictated by: Mracell White M.D. 05/21/2025 7:01 PM Dictation Location: [place] [address] Transcribed By: [facility] 05/21/251900 Dictated By: Marcell White DO 05/21/25 185 Signed By: 05/21/251900[facility] Physician Groupon 65-90-4938DJWG Cardiology [facility] Subjective Aby Madrigal is a 59 y.o. year old female patient being seen for a follow up s/p [facility] ER visit. Patient states she was in [...] infarction) (CMS/HCC) Hypokalemia Coronary artery disease involving inupiat coronary artery of inupiat heart without angina pectoris Depression, major, severe [...] and V6. She was then admitted to [facility] on 07/11/2024 with NSTEMI. She underwent [...] on 01/31/2025 she was evaluated at the [facility] because of chest pain. Workup [...] HENT: Head: Normocephalic and (more content not included)...NormalUnWilson Street HospitalOffice Visiton 64-11-4418Kkbdua-up [id number] Aby Madrigal 1965 F Date Provider Department Center 05/14/2025 GOMEZ KENDALL [facility] Family History Problem Relation Age of Onset Lung cancer Mother Accidental Father Lung cancer Sister Family Status - Relation Status Age at Mother Father Sister Brother Alive Level of Service:[address] [place] OFFICE/OUTPATIENT ESTABLISHED MOD [facility]37on . Change carvedilol to 1.5 tablets twice daily. 2. Start taking spironolactone half tablet once daily. 3. You can stop clopidogrel in July 2025.NormalSelect Medical Specialty Hospital - Cincinnati NorthOffice Visiton 71-97-7480Cmowtt-up [id number] Aby Madrigal S 1965 F Date Provider Department Center 04/23/2025 GOMEZ KENDALL [place] [place] Family History Problem Relation Age of Onset Lung cancer Mother Accidental Father Lung cancer Sister Family Status - Relation Status Age at Mother Father Sister Brother Alive Level of Service:[address]75 [place] OFFICE/OUTPATIENT ESTABLISHED MOD [facility] HealthOrders Onlyon 56-40-1029Gonghy [id number] EmmabaAby spence S 1965 F Date Provider Department Center 04/20/2025 [id number], HISTORICAL RIAZ [place] Family History Problem Relation Age of Onset Lung cancer Mother Accidental Father Lung cancer Sister Family Status - Relation Status Age at Mother Father Sister Brother AliveNormalUniGlenbeigh Hospital37on 90-67-356186Nc was good to see you again today I would like you to [...] I can see where your potassium levels are.NormalSelect Medical Specialty Hospital - Cincinnati NorthFollow-Upon [id number] Aby Madrigal S 1965 F Date Provider Department Center 04/10/2025 [id number] BOWMAN [facility] ENDOCR [facility] Family History Problem Relation Age of Onset Lung cancer Mother Accidental Father Lung cancer Sister Family Status - Relation Status Age at Mother Father Sister Brother Alive Level of Service:17523 [place] OFFICE/OUTPATIENT ESTABLISHED MOD MDM 30 MIN Reason for Visit and Comments: Adrenal Problem [420] - Follow upNormalUniGlenbeigh Hospital Influenza virus B Ag [Presence] in Upper respiratory specimen by Rapid immunoassayon [id number] Ag IA.rapid Ql (Nph)NegativeGenesis HospitalNo Panel Informationon 80-67-4192Chdbaxwfz Type A (Rapid)Negative Genesis HospitalPO SARS CoV-2 AntigenNegativeGenesis Hospital29on [id number] by: FENG CHRISTIE on: 03/02/2025 09:34 AM Modules accepted: OrdersNormalUniGlenbeigh Hospital3603-02-2025 36Called patient over the phone at 9:10 AM - I have reviewed results from adrenal venous sampling performed on 02/07/2025 at [facility]. Patient met criteria for selectivity index [...] with primary aldosteronism will proceed to surgical evaluationrmalUniGlenbeigh HospitalOrders Onlyon 03-02-2025 Orders [id number] Aby Madrigal 1965 F Date Provider Department Center 03/02/2025 11528-YUOMR, [facility] ENDOCR [facility] Family History Problem Relation Age of Onset Lung cancer Mother Accidental Father Lung cancer Sister Family Status - Relation Status Age at Mother Father Sister Brother AliveNoHenry County [id number] routed to you.[facility]36Please call patient and let her know that I've requested the test results from [facility]) Ill be able to discuss the results with her tomorrow Thank [facility]36on 85-09-193482Lidwsqp called regarding IR venography she had done 02/07. Requesting to discuss results and how she should follow up per Dr. RiveraLima City HospitalOffice Visiton 98-43-2132Nmycng-up [id number] Aby Madrigal 1965 Date Provider Department Center 02/26/2025 GOMEZ KENDALL [facility] Family History Problem Relation Age of Onset Lung cancer Mother Accidental Father Lung cancer Sister Family Status - Relation Status Age at Mother Father Sister Brother Alive Level of Service:68052 [place] OFFICE/OUTPATIENT ESTABLISHED LOW MDM [facility]Telephoneon [id number] RohanAby Evans 1965 Provider Department Center 02/26/2025 JESSY MATSON [facility] NEPH [facility] Family History Problem Relation Age of Onset Lung cancer Mother Accidental Father Lung cancer Sister Family Status - Relation Status Age at Mother Father Sister Brother AliveNormalUniversity Kettering Health TroyCortisol [Mass/Vol]on 24-13-9999JQPAAMLJ3.2 ug/dLNormalProMedica [facility] Medical CenterComment on above: Result Comment: Due to the diurnal variation of cortisol levels in normal subjects, all cortisol measurements should be referenced to the time of day of sample collection. AM Cortisol Age>=6 6.7-22.4 ug/dL PM Cortisol Age>=6 <10 ug/dL Performed By: #### 2143-6 #### [facility] ([id number]) [address] [place] [address], [address] [place], [place] [address]OKLGZFWB5.2 ug/dLWVUMedicine Harrison Community Hospital on above:Result Comment: Due to the diurnal variation of cortisol levels in normal subjects, all cortisol measurements should be referenced to the time of day of sample collection. AM Cortisol Age>=6 6.7-22.4 ug/dL PM Cortisol Age>=6 <10 ug/dL Performed By: #### 2143-6 #### [facility] ([id number]) [address] [place] [address], [facility] [address] [place], [place] [address]IXKFXSUE62.9 ug/dLWVUMedicine Harrison Community Hospital on above:Result Comment: Due to the diurnal variation of cortisol levels in normal subjects, all cortisol measurements should be referenced to the time of day of sample collection. AM Cortisol Age>=6 6.7-22.4 ug/dL PM Cortisol Age>=6 <10 ug/dL Performed By: #### 2143-6 #### [facility] ([id number]) [facility], [facility] [address] [place], [place] [address]NXUVFPAR00.1 ug/dLNoUniversity Hospitals Elyria Medical Center on above:Result Comment: Due to the diurnal variation of cortisol levels in normal subjects, all cortisol measurements should be referenced to the time of day of sample collection. AM Cortisol Age>=6 6.7-22.4 ug/dL PM Cortisol Age>=6 <10 ug/dL Performed By: #### 2143-6 #### [facility] ([id number]) [address] [place] [address], [address] [place], [place] [address]JIRFKAOT6.7 ug/dLNormalPomerene Hospital on above:Result Comment: Due to the diurnal variation of cortisol levels in normal subjects, all cortisol measurements should be referenced to the time of day of sample collection. AM Cortisol Age>=6 6.7-22.4 ug/dL PM Cortisol Age>=6 <10 ug/dL Performed By: #### 2143-6 #### [facility] ([id number]) [address], [address] [place], [place] [address]RDCRTSEC24.3 ug/dLNormalPomerene Hospital on above:Result Comment: Due to the diurnal variation of cortisol levels in normal subjects, all cortisol measurements should be referenced to the time of day of sample collection. AM Cortisol Age>=6 6.7-22.4 ug/dL PM Cortisol Age>=6 <10 ug/dL Performed By: #### 2143-6 #### [facility] ([id number]) [address], [address] [place], [place] [address]TSZY GENERIC ORDERon [id number] NAMEAIVC INFERIOR VENA CAVA NormalPomerene Hospital on above:Result Comment: Corrected on 02/07 AT 1204: Previously reported as INFERIOR VENA CAVATEST RESULTSEE COMMENTS 02/10/2025 12:12 AMNormalProCleveland Clinic Union Hospital on above:Result Comment: NOTE Test Result Flag Unit RefValue Aldosterone, IVC <4.0 ng/dL Not applicable ADDITIONAL INFORMATION This test was developed and its performance characteristics determined by [facility] in a manner consistent with CLIA requirements. This test has not been cleared or approved by the U.S. Food and Drug Administration. Test Performed by: [facility] [place] [place] [address] Access Analyst: Shawanda Jimenez Ph.D.; CLIA# [id number] Comment: NOTE Test Result Flag Unit RefValue Aldosterone, LAV 32 ng/dL Not applicable ADDITIONAL INFORMATION This test was developed and its performance characteristics determined by [facility] in a manner consistent with CLIA requirements. This test has not been cleared or approved by the U.S. Food and Drug Administration. Test Performed by: [facility] [place] [place] [address] Access Analyst: Shawanda Jimneez Ph.D.; CLIA# [id number] Comment: NOTE Test Result Flag Unit RefValue Aldosterone, LAV 28 ng/dL Not applicable ADDITIONAL INFORMATION This test was developed and its performance characteristics determined by [facility] in a manner consistent with CLIA requirements. This test has not been cleared or approved by the U.S. Food and Drug Administration. Test Performed by: [facility] [place] [place] [address] Access Analyst: Shawanda Jimenez Ph.D.; CLIA# [id number] Comment: NOTE Test Result Flag Unit RefValue Aldosterone, KELLEY <4.0 ng/dL Not applicable ADDITIONAL INFORMATION This test was developed and its performance characteristics determined by [facility] in a manner consistent with CLIA requirements. This test has not been cleared or approved by the U.S. Food and Drug Administration. Test Performed by: [facility] [place] [place] [address] Access Analyst: Shawanda Jimenez Ph.D.; CLIA# [id number] Comment: NOTE Test Result Flag Unit RefValue Aldosterone, KELLEY 74 ng/dL Not applicable ADDITIONAL INFORMATION This test was developed and its performance characteristics determined by [facility] in a manner consistent with CLIA requirements. This test has not been cleared or approved by the U.S. Food and Drug Administration. Test Performed by: [facility] [place] [place] [address] Access Analyst: Shawanda Jimenez Ph.D.; CLIA# [id number] Medical Center Harker HeightsalKettering Health Washington TownshipTEST NAMEALAV LEFT ADRENALNormalProMedica [facility] Medical CenterTEST NAMEARAV RIGHT ADRENALNormalProMedica [facility] NAMEARAV RIGHT ADRENALNormalProMedica [facility] Medical CenterTelephoneon 01-18-2025 [id number] Aby Madrigal 1965 F Date Provider Department Center 01/18/2025 06045-QZOYKFENG BOWMAN [facility] ENDOCR [facility] Family History Problem Relation Age of Onset Lung cancer Mother Accidental Father Lung cancer Sister Family Status - Relation Status Age at Mother Father Sister Brother AliveNormalUniGlenbeigh HospitalFollow-Upon 01-09-2025 Follow-[id number] Aby Madrigal 1965 Date Provider Department Center 01/09/2025 56300-WYQOBFENG BOWMAN [facility] ENDOCR [facility] Family History Problem Relation Age of Onset Lung cancer Mother No Known Problems Father Lung cancer Sister Family Status - Relation Status Age at Mother Father Sister Level of Service:90188 [place] OFFICE/OUTPATIENT ESTABLISHED LOW [facility]36on [id number] patient's daughter at 10:40 AM 01/04/2025 - [...] that time. Melanie thanked me for the callNormalUniversity of [facility]36on 81-23-071263Gxvkcxutc. Patient's daughter called in, she thought Dr. Christie was going to order testing where they go in through the groin to see which kidney is dumping off excess hormones, she would like a call back.[facility] CenterTelephoneon [id number] Aby Madrigal 1965 F Date Provider Department Center 01/03/2025 27830-JKYPH, [facility] ENDOCR [facility] Family History Problem Relation Age of Onset Lung cancer Mother No Known Problems Father Lung cancer Sister Family Status - Relation Status Age at Mother Father SisterNormalUniversMetroHealth Cleveland Heights Medical CenterALDOSTERONEon 01-02-2025 ALDOSTERONE (NG/DL) IN SER/PLAS7.3 ng/dLNoHenry County HospitalComcaro center on above:Result Comment: INTERPRETIVE INFORMATION: Aldosterone, Serum Reference intervals for age [...] reference intervals for this test in the [employer] [facility] Test Directory ([employer]). Performed By: [employer] [address] [place] [address] Brake Mechanic: Navneet Simoen MD, PhD CLIA Number: [id number] By: #### [id number] #### [facility] (BEAKER) [address] [place], [place] [address]FMOYIYYEJDU (NG/DL) IN SER/PLAS14.2 ng/dLNormalUChillicothe VA Medical CenterComment on above:Result Comment: INTERPRETIVE INFORMATION: Aldosterone, Serum Reference intervals for age [...] reference intervals for this test in the [employer] [facility] Test Directory ([employer]). Performed By: [employer] [address] [place] [address] Brake Mechanic: Navneet Simeon MD, PhD CLIA Number: [id number] By: #### [id number] #### [facility] ([facility]) [address] [place], [place] [address]CQQORYTYyc 47-81-1760CRWSPVVM (UG/DL) IN SER/PLAS3.6 ug/dLNormal0-9UnWilson [address] HospitalComment on above:Performed By: #### [id number] #### [facility] ([facility]) [address] [place], [place] [address]RAVJFSYO (UG/DL) IN SER/PLAS9.0 ug/dLNormal6-23UnWilson [address] HospitalComment on above:Performed By: #### [id number] #### [facility] ([facility]) [address] [place], [place] [address]CQXEVLWMla 93-26-5426ZGBKLKEBX-3=6811, at this time VS taken, IV started, labs drawn and NS hung at 500ml/hr. 0920 VS documented in flow sheet. Pt up to BR 1020 VS documented in flow sheet. Pt up to BR 1120 VS documented in flow sheet. Pt up to BR 1220 VS documented in flow sheet, NS stopped, labs drawn, IV discontinued and pt up to BR and released.NormalUnWilson Street HospitalPOTASSIUMon 48-69-7903Hvcjzwfqo [Moles/Vol]3.9 mmol/LNormal3.5-5.1Un[address] HospitalComment on above:Performed By: #### [id number] #### [facility] ([facility]) [address] [place], [place] [address]Skuyskxlu [Moles/Vol]4.0 mmol/LNormal3.5-5.1Un[address] HospitalComment on above:Performed By: #### [id number] #### [facility] ([facility]) [address] [place], [place] [address]KBEHQ ACTIVITYon 27-79-9834ZJPGN ACTIVITY<0.1NormalSelect Medical Specialty Hospital - Cincinnati NorthComment on above:Result Comment: INTERPRETIVE INFORMATION: Renin Activity Adult, Normal sodium diet: Supine ................. 0.2-1.6 ng/mL/hr Upright ................ 0.5-4.0 ng/mL/hr Children, Normal sodium diet, Supine: [place] (1-7 days) ..... 2.0-35.0 ng/mL/hr Cord blood [...] developed and its performance characteristics determined by [employer]. It has not been cleared or approved by the US Food and Drug Administration. This test was performed in a CLIA certified laboratory and is intended for clinical purposes. Performed By: [employer] [facility] [address] [place] [address] Brake Mechanic: Navneet Simeon MD, PhD CLIA Number: [id number] By: #### [id number] #### [facility] (BEAKER) [address] [place], [place] [address]DCBQV ACTIVITY<0.1NormalSelect Medical Specialty Hospital - Cincinnati North Comment on above:Result Comment: INTERPRETIVE INFORMATION: Renin Activity Adult, Normal sodium diet: [...] developed and its performance characteristics determined by [employer]. It has not been cleared or approved by the US Food and Drug Administration. This test was performed in a CLIA certified laboratory and is intended for clinical purposes. Performed By: [employer] [address] [place] [address] Brake Mechanic: Navneet Simeon MD, PhD [facility] Number: [id number] By: #### [id number] #### [facility] ([facility]) [address] [place], [place] [address]Ibysqk Onlyon 17-51-4638Bhlyly [id number] Strausbaugh,Aby S 1965 F Date Provider Department Center 01/01/2025 157CICI PERRINRIZ [facility] 2A Second Fl Family History Problem Relation Age of Onset Lung cancer Mother No Known Problems Father Lung cancer Sister Family Status - Relation Status Age at Mother Father SisterNormalUniversohio [facility] PasoOrders [id number] Strausbaugh,Aby S 1965 F Date Provider Department Center 01/01/2025 1759-GIBSON GARCIA [facility] 2A Second Fl Family History Problem Relation Age of Onset Lung cancer Mother No Known Problems Father Lung cancer Sister Family Status - Relation Status Age at Mother Father SisterNormalUniversity of [facility] Of El PasoOrders Onlyon 08-65-1960Mjokqm [id number] Strausbaugh,Aby S 1965 F Date Provider Department Center 12/26/2024 157-RAMU PERRIN [facility] 2A Second Fl Family History Problem Relation Age of Onset Lung cancer Mother No Known Problems Father Lung cancer Sister Family Status - Relation Status Age at Mother Father SisterNormalUniversohio [facility] of [facility] PasoOrders [id number] Strausbaugh,Aby S 1965 F Date Provider Department Center 12/26/2024 1883-USHA DURON [facility] 2A Second Fl Family History Problem Relation Age of Onset Lung cancer Mother No Known Problems Father Lung cancer Sister Family Status - Relation Status Age at Mother Father SisterNormalUniversity of [facility] El PasoOrders [id number] Sanjana Madrigalty S 1965 F Date Provider Department Center 12/26/2024 DAX CROWDER [facility] 2A Second Fl Family History Problem Relation Age of Onset Lung cancer Mother No Known Problems Father Lung cancer Sister Family Status - Relation Status Age at Mother Father SisterNormalUniversohio [facility] of [facility]36on 46-79-395837Aybpget has not heard from the [facility] about scheduling this, she is going to reach out to them directly, but could someone reach out to the [facility] about what's going on?[facility] Orders Onlyon 54-07-2944Nymudf [id number] EmmababebeAby S 1965 F Date Provider Department Center 12/25/2024 Rupert[facility] INF DCC Family History Problem Relation Age of Onset Lung cancer Mother No Known Problems Father Lung cancer Sister Family Status - Relation Status Age at Mother Father SisterNormalUniversohio [facility] of [facility] PasoOrders [id number] EmmababebeAby S 1965 F Date Provider Department Center 12/25/2024 GIBSON CISNEROS [facility] 2A Second Fl Family History Problem Relation Age of Onset Lung cancer Mother No Known Problems Father Lung cancer Sister Family Status - Relation Status Age at Mother Father SisterNormalUniversMetroHealth Cleveland Heights Medical Center3629-40-111073Evfym I signed the orders for saline infusion test back on Oct 12 (its a Therapy Plan) Can we call the [facility] and ask what more do they need to get the patient scheduled [id number] had not heard from the [facility] about scheduling a Saline Infusion Test, when I look into the chart, I cannot find any ordersNormal [facility] Hospital - Cincinnati NorthTelephoneon [id number] EmmababebeAby S 1965 F Date Provider Department Center 12/08/2024 65437-AOMFE, WADE [facility] ENDOCR [facility] Family History Problem Relation Age of Onset Lung cancer Mother No Known Problems Father Lung cancer Sister Family Status - Relation Status Age at Mother Father SisterNormalUniGlenbeigh HospitalAbstracton 05-82-3443Bqyoquwb [id number] Aby Madrigal S 1965 F Date Provider Department Center 11/21/2024 71475-RWPVIV-UEYDARA CARTER DCC ONC DCC Family History Problem Relation Age of Onset Lung cancer Mother No Known Problems Father Lung cancer Sister Family Status - Relation Status Age at Mother Father SisterNormalUniGlenbeigh HospitalCT CHEST WO IV CONTRASTon 66-81-2205PL CHEST WO IV CONTRASTCT CHEST WITHOUT CONTRAST HISTORY: Lung nodule COMPARISON: [...] 3.2 cm. Electronically signed: Marlon Green MD. 5Invalid Interpretation CodeUnWilson Street HospitalOffice Visiton 65-21-7505Dhptte-up [id number] Aby Madrigal S 1965 F Date Provider Department Center 10/26/2024 383-RICHA VIRAMONTES DCC ONC DCC Family History Problem Relation Age of Onset Lung cancer Mother No Known Problems Father Lung cancer Sister Family Status - Relation Status Age at Mother Father Sister Level of Service:63934 [place] OFFICE/OUTPATIENT ESTABLISHED SF MDM 10 MIN (GC) Reason for Visit and Comments: Follow-up [698603] - F/U to review CT scan that was done today.[facility]29on 02-09-743134Yitnklmw by: FENG CHRISTIE on: 10/12/2024 10:02 AM Modules accepted: OrdersNormalUniversMetroHealth Cleveland Heights Medical Center37on 10-03-2024 37It was good to see you again Your recent CAT scan is reassuring showing me that your left adrenal mass has actually shrunk in size we no longer need to monitor this at all with any repeat CAT scans. To confirm if you have primary aldosteronism were going to do something called a saline infusion test at the [facility] they will be in contact with you likely within the next week. This is a 2-hour test in which we infused saline 2 L and assess any changes in your aldosterone level. This is in a monitored setting so you will not be alone.NormalSelect Medical Specialty Hospital - Cincinnati North Follow-Upon 20-02-6230Uluqcm-[id number] Aby Madrigal 1965 F Date Provider Department Center 10/03/2024 62337-CQQUB, [facility] ENDOCR [facility] Family History Problem Relation Age of Onset Lung cancer Mother No Known Problems Father Lung cancer Sister Family Status - Relation Status Age at Mother Father Sister Level of Service:00260 [place] OFFICE/OUTPATIENT ESTABLISHED MOD MDM 30 MIN Reason for Visit and Comments: Follow-up [340006][facility] CenterCovid-19 PCR (CVDTBH) on 84-28-7199BKSE-CoV-2 (COVID-19) RNA BECK+probe Ql (Unsp spec)Not detected NormalNOT DETECTEDThe University Hospitals Beachwood Medical CenterComment on above:Result Comment: This test is not yet approved or cleared by the [place] FDA. When there are no FDA-approved or cleared tests available, and other criteria are met, FDA can make tests available under an emergency access mechanism called an Emergency Use Authorization (EUA). The EUA for this test is supported by the Deputy K 9 of Health and Human Service's (HHS's) declaration [...] of clinical signs and symptoms consistent with SARS-CoV-2.Performed By: #### CVDTBH #### [facility] [address] [place] [address] Dr. Rich WelchVC VENOUS REFLUX NINO [facility] 77-16-2401SW VENOUS REFLUX NINO LMT Patient: ABY MADRIGAL Exam Date: 10/02/2022 : 1965 Gender:F Ordering : DR KENDRA MORAN . Admission #: [id number] Family : Order #: [id number] CLICK HERE TO VIEW EXAM RADIOLOGY REPORT [...] chronic thrombus visualized Compressibility: Normal Flow: Normal Pharmacy Technician Per Diem: Dist/med calf 3.3mm with 0s reflux. Tech Note: Incompetent SFJ and GSV. Patent varicose vein mid/med calf 2.9mm with 0s reflux. Patent varicose vein prox/post calf 3.8mm with 0s reflux. Patent varicose vein dist/med thigh 3.8mm with 2.0s reflux. CONCLUSION: 1. Mild right and rhlp-vl-mlbosfrr left great saphenous vein venous insufficiency with dilatation 2. Left saphenous popliteal junction reflux 3. Mild left anterior accessory saphenous vein venous insufficiency without dilatation 4. Small bilateral incompetent varicose veins Dictated by: Adelia Lezama MD on 10/02/2022 at 13:36 Approved by: Adelia Lezama MD on 10/02/2022 at 13:52[facility] ECHOCARDIO M/2D COMPLETEon 06-88-3527WEWRHISOTX M/2D COMPLETEPatient: ROHAN AYB EvansRaul Exam Date: 09/30/2022 : 1965 Gender:F Ordering : DR KENDRA MORAN . Admission #: [id number] Family : Order #: [id number] CLICK HERE TO VIEW EXAM ECHOCARDIOGRAM REPORT [...] by: Gomez Spence M.D. on 09/30/2022 at 18:37[facility] Medical CenterBNPon 35-33-2247Nrcafxwwakc peptide B (Bld) [Mass/Vol]501.0 pg/mLNormal <=900.0The [facility] Beachwood Medical CenterComment on above:Performed By: #### CVDTBH #### [facility] [address] [place] [address] Dr. Rich Mario AUTO DIFFon 87-41-0131PCIQ #0.1 103/ulNormal0.0-0.1The [facility] Beachwood Medical CenterComment on above:Performed By: #### CVDTBH #### [facility] [address] [place] [address] Dr. Rich Crooksophils/100 WBC (Bld)0.8 %Normal0.2-2.0The [facility] Comment on above:Performed By: #### CVDTBH #### [facility] [address] [place] [address] [address] Rich García #0.3 103/ulNormal0.0-0.7The [facility] Medical CenterComment on above: Performed By: #### CVDTBH #### [facility] [address] [place] [address] Dr. Rich Quinteroosinophils/100 WBC (Bld)3.4 %Normal0.9-7.0The [facility] Comment on above:Performed By: #### CVDTBH #### [facility] [address] [place] [address] Dr. Rich Quinterorythrocyte distribution width (RBC) [Ratio]13.3 %Inupjb86.0-15.0 The [facility] CenterComment on above:Performed By: #### CVDTBH #### [facility] [address] [place] [address] Dr. Rich WelchHematocrit (Bld) [Volume fraction]40.5 %Qefufh34.0-48.0The [facility] CenterComment on above:Performed By: #### CVDTBH #### [facility] [address] [place] [address] Dr. Rich WelchHemoglobin (Bld) [Mass/Vol]13.1 g/lEAsoeak18.0-16.0The [facility] CenterComment on above:Performed By: #### CVDTBH #### [facility] [address] [place] [address] Dr. Rich Rodriguez #0.02 10e3/ulNormal0.00-0.03The [facility] Columbusment on above:Performed By: #### CVDTBH #### [facility] [address] [place] [address] Dr. Rich Rodriguez %0.3 %Normal0.0-0.5The [facility] Columbusment on above: Performed By: #### CVDTBH #### [facility] [address] [place] [address] Dr. Rich Garcia #2.7 103/ulNormal1.2-3.8The [facility] CenterComment on above:Performed By: #### CVDTBH #### [facility] [address] [place] [address] Dr. Rich Hoopermphocytes/100 WBC (Bld)35.4 %Bztlya85.5-60.0The [facility] CenterComment on above:Performed By: #### CVDTBH #### [facility] [address] [place] [address] Dr. Rich Ramos DIFF REQNONormalThe [facility] CenterComment on above: Performed By: #### CVDTBH #### [facility] [address] [place] [address] Dr. Rich Cornell (RBC) [Entitic mass]28.2 jxIezjce91.7-34.0The [facility] CenterComment on above:Performed By: #### CVDTBH #### [facility] [address] [place] [address] Dr. Rich Mckeon (RBC) [Mass/Vol]32.3 g/iWAiaobp57.9-35.2The [facility] CenterComment on above:Performed By: #### CVDTBH #### [facility] [address] [place] [address] Dr. Rich Hardy (RBC) [Entitic vol]87.3 iRCljujf26.0-99.0The [facility] CenterComment on above:Performed By: #### CVDTBH #### [facility] [address] [place] [address] Dr. Rich Soto #0.5 103/ulNormal0.3-0.8The [facility] CenterComment on above:Performed By: #### CVDTBH #### [facility] [address] [place] [address] Dr. Rich Roaocytes/100 WBC (Bld)6.5 %Normal1.7-12.0The [facility] on above:Performed By: #### CVDTBH #### [facility] [address] [place] [address] Dr. Rich Real #4.1 103/ulNormal1.4-6.5The [facility] CenterComment on above:Performed By: #### CVDTBH #### [facility] [address] [place] [address] Dr. Rich Cassidyutrophils/100 WBC (Bld)53.6 %Kkwkty60.0-75.0The [facility] CenterComment on above:Performed By: #### CVDTBH #### [facility] [address] [place] [address] Dr. Rich Martin mean volume (Bld) [Entitic vol]10.3 fLNormal9.5-13.5The [facility] CenterComment on above:Performed By: #### CVDTBH #### [facility] [address] [place] [address] Dr. Rich WelchPLT283 103/sqMgzjod466-244Jtl [facility] CenterComment on above: Performed By: #### CVDTBH #### [facility] [address] [place] [address] Dr. Rich WelchRBC4.64 106/ulNormal4.20-5.40The [facility] CenterComment on above:Performed By: #### CVDTBH #### [facility] [address] [place] [address] Dr. Rich WelchWBC7.6 103/ulNormal4.0-11.0The [facility] CenterComment on above: Performed By: #### CVDTBH #### [facility] [address] [place] [address] Dr. Rich WelchINSULINon 74-71-9329Icuprjj74.1 uIU/mLNormal2.6-24.9The [facility] CenterComment on above:Performed By: #### CVDTBH #### [facility] [address] [place] [address] Dr. Rich Good 14(COMP METB)on 36-68-4087Mhqyagy [Mass/Vol]3.5 g/dLNormal 3.4-5.0The [facility] CenterComment on above:Performed By: #### CVDTBH #### [facility] [address] [address] [address] Rich WelchAlbumin/Globulin [Mass ratio]1.0 {ratio}NormalThe [facility] CenterComment on above:Performed By: #### CVDTBH #### [facility] [address] [address] [address] Rich WoodP [Catalytic activity/Vol]91 U/MSsyzpy70-294Jto [facility] CenterComment on above:Performed By: #### CVDTBH #### [facility] [address] [address] [address] Rich WoodT [Catalytic activity/Vol]47 U/QWggvqm59-44Owv [facility] CenterComment on above:Performed By: #### CVDTBH #### [facility] [address] [place] [address] Dr. Rich Haydenon gap [Moles/Vol]11.7 mmol/LNormalThe [facility] Comment on above:Performed By: #### CVDTBH #### [facility] [address] [address] [address] Rich WelchAST [Catalytic activity/Vol]24 U/PUpsztc99-31Oer [facility] CenterComment on above:Performed By: #### CVDTBH #### [facility] [address] [address] [address] Rich WelchBilirubin [Mass/Vol]0.2 mg/dLNormal0.2-1.0The [facility] Comment on above:Performed By: #### CVDTBH #### [facility] [address] [address] [address] Rich WelchCalcium [Mass/Vol]8.9 mg/dLNormal8.5-10.1The [facility] Comment on above:Performed By: #### CVDTBH #### [facility] [address] [address] [address] Rich WelchChloride [Moles/Vol]105 mmol/SHjcfah72-408Vbj [facility] Comment on above:Performed By: #### CVDTBH #### [facility] [address] [address] [address] Rich WelchCO2 [Moles/Vol]28.1 mmol/HKywuyu53.0-32.0The [facility] Comment on above:Performed By: #### CVDTBH #### [facility] [address] [address] [address] Rich WelchCreatinine [Mass/Vol]1.13 mg/dLCritically high0.55-1.02[facility] HospitalComment on above:Performed By: #### CVDTBH #### [facility] [address] [address] [address] Rich QuinteroGFR-AF INMKFKJN59 mL/min/1.13z6Ogzenc>=60The [facility] Comment on above:Performed By: #### CVDTBH #### [facility] [address] [address] [address] Rich QuinteroGFR-NON AF GVMSAYFR01 mL/min/1.87p8Wffwwbgbdx low>=60The [facility] CenterComment on above:Performed By: #### CVDTBH #### [facility] [address] [place] [address] Dr. Rich WelchGlobulin (S) [Mass/Vol]3.5 g/dLNormalThe [facility] CenterComment on above:Performed By: #### CVDTBH #### [facility] [address] [place] [address] Dr. Rich WelchGlucose [Mass/Vol]119 mg/dLCritically lrwm35-171DleMercy Health St. [facility] HospitalComment on above:Performed By: #### CVDTBH #### [facility] [address] [address] [address] Rich WelchPotassium [Moles/Vol]3.8 mmol/LNormal3.5-5.1The [facility] Comment on above:Performed By: #### CVDTBH #### [facility] [address] [address] [address] iRch WelchProtein [Mass/Vol]7.0 g/dLNormal6.4-8.2The [facility] Comment on above:Performed By: #### CVDTBH #### [facility] [address] [place] [address] Dr. Rich WelchSodium [Moles/Vol]141 mmol/MCahdel227-649Xwj [facility] Comment on above:Performed By: #### CVDTBH #### [facility] [address] [place] [address] Dr. Rich WelchUrea nitrogen [Mass/Vol]16.0 mg/dLNormal7.0-18.0The [facility] CenterComment on above:Performed By: #### CVDTBH #### [facility] [address] [place] [address] Dr. Rich WelchUrea nitrogen/Creatinine [Mass ratio]14.2 mg/mgNormalThe [facility] CenterComment on above:Performed By: #### CVDTBH #### [facility] [address] [place] [address] Dr. Rich Nichols, HIGH SENSITIVITYon 27-63-9548IPTACP09.6 pg/mLNormal 4.0-51.3The [facility] CenterComment on above:Result Comment: CUT-OFF POINTS HAVE BEEN ESTABLISHED BASED ON THE FOURTH UNIVERSAL DEFINITIONS OF MYOCARDIAL INFARCTION. THE UPPER REFERENCE LIMIT (URL) OF TROPONIN, DEFINED THE 99TH PERCENTILE OF cTnI DISTRIBUTION IN A REFERENCE POPULATION, HAS BEEN CONFIRMED THE DECISION THRESHOLD FOR NM DIAGNOSIS.Performed By: #### CVDTBH #### [facility] [address] [place] [address] Dr. Rich WelchXR CHEST 1 Von [id number] CHEST 1 VEXAM: XR CHEST 1 V HISTORY: SHORTNESS OF [...] Electronically authenticated by: UMM HUMPHRIES Date: 2022-09-24 04:08NormMercy Memorial Hospital AUTO DIFFon [id number] #0.1 103/ulNormal0.0-0.1The [facility] CenterComment on above:Performed By: #### CBC #### [facility] [address] [address] [address] Rich WelchBasophils/100 WBC (Bld)0.8 %Normal0.2-2.0The [facility] Comment on above:Performed By: #### CBC #### [facility] [address] [address] [address] Rich García #0.2 103/ulNormal0.0-0.7The [facility] CenterComment on above: Performed By: #### CBC #### [facility] [address] [address] [address] Rich Quinteroosinophils/100 WBC (Bld)3.5 %Normal0.9-7.0The [facility] Comment on above:Performed By: #### CBC #### [facility] [address] [address] [address] Rich Quinterorythrocyte distribution width (RBC) [Ratio]13.4 %Ygwfyd38.0-15.0 The [facility] CenterComment on above:Performed By: #### CBC #### [facility] [address] [address] [address] Rich WelchHematocrit (Bld) [Volume fraction]42.3 %Gotedy31.0-48.0The [facility] CenterComment on above:Performed By: #### CBC #### [facility] [address] [address] [address] Rich WelchHemoglobin (Bld) [Mass/Vol]13.4 g/xOWjfvhl35.0-16.0The [facility] CenterComment on above:Performed By: #### CBC #### [facility] [address] [place] [address] Dr. Yilan ChangIG #0.03 10e3/ulNormal0.00-0.03The [facility] CenterComment on above:Performed By: #### CBC #### [facility] [address] [place] [address] Dr. Rich Rodriguez %0.5 %Normal0.0-0.5The [facility] CenterComment on above: Performed By: #### CBC #### [facility] [address] [place] [address] Dr. Rich Garcia #2.9 103/ulNormal1.2-3.8The [facility] CenterComment on above:Performed By: #### CBC #### [facility] [address] [place] [address] Dr. Rich Chakrabortyhocytes/100 WBC (Bld)44.0 %Cgtpbw20.5-60.0The [facility] CenterComment on above:Performed By: #### CBC #### [facility] [address] [place] [address] Dr. Rich Ramos DIFF REQNONormalThe [facility] CenterComment on above: Performed By: #### CBC #### [facility] [address] [place] [address] Dr. Rich Cornell (RBC) [Entitic mass]28.4 tlArehsd00.7-34.0The [facility] CenterComment on above:Performed By: #### CBC #### [facility] [address] [place] [address] Dr. Rich Mckeon (RBC) [Mass/Vol]31.7 g/eAIvbkbd18.9-35.2The [facility] CenterComment on above:Performed By: #### CBC #### [facility] [address] [place] [address] Dr. Rich Hardy (RBC) [Entitic vol]89.6 kVFyaaxs88.0-99.0The [facility] CenterComment on above:Performed By: #### CBC #### [facility] [address] [place] [address] Dr. Yilan ChangMONO #0.4 103/ulNormal0.3-0.8The [facility] CenterComment on above:Performed By: #### CBC #### [facility] [address] [place] [address] Dr. Rich Roaocytes/100 WBC (Bld)6.6 %Normal1.7-12.0The [facility] Comment on above:Performed By: #### CBC #### [facility] [address] [place] [address] Dr. Rich Real #2.9 103/ulNormal1.4-6.5The [facility] HospitalComment on above:Performed By: #### CBC #### [facility] [address] [place] [address] Dr. Rich Mcgowanophils/100 WBC (Bld)44.6 %Zinues36.0-75.0The [facility] CenterComment on above:Performed By: #### CBC #### [facility] [address] [place] [address] Dr. Rich Zhenglet mean volume (Bld) [Entitic vol]11.0 fLNormal9.5-13.5The [facility] CenterComment on above:Performed By: #### CBC #### [facility] [address] [place] [address] Dr. Rich FriedT272 103/hgXnwjle156-214Wqa [facility] CenterComment on above: Performed By: #### CBC #### [facility] [address] [place] [address] Dr. Rich WelchRBC4.72 106/ulNormal4.20-5.40The [facility] CenterComment on above:Performed By: #### CBC #### [facility] [address] [place] [address] Dr. Rich IrbyBC6.5 103/ulNormal4.0-11.0The [facility] CenterComment on above: Performed By: #### CBC #### [facility] [address] [place] [address] Dr. Yilan ChangFREE THYROXINE INDEX T7on 69-34-0770NTM2.17Atkmgs0.30-4.50The [facility] CenterComment on above:Performed By: #### LIPID, TSH, T7, CMP #### [facility] [address] [address] [address] Rich WelchT3U30.0 %Tstoza92.0-39.0The [facility] CenterComment on above: Performed By: #### LIPID, TSH, T7, CMP #### [facility] [address] [address] [address] Rich WelchT4 [Mass/Vol]7.20 ug/dLNormal4.80-13.90The [facility] Comment on above:Performed By: #### LIPID, TSH, T7, CMP #### [facility] [address] [address] [address] Rich WelchGLYCOHEMOGLOBIN A1Con [id number] RECOMMENDATIONSEE BELOWNormal The [facility] CenterComment on above:Result Comment: ADA RECOMMENDED LIMIT 4.0 - 6.0 ADA THERAPEUTIC TARGET < 7.0 ACTION SUGGESTED > 7.0Performed By: #### A1C #### [facility] [address] [place] [address] Dr. Rich WelchGlucose [Mass/Vol]128 mg/dLNormalThe [facility] CenterComment on above:Performed By: #### A1C #### [facility] [address] [place] [address] Dr. Rich WelchHbA1c (Bld) [Mass fraction]6.1 %Normal4.5-6.2The [facility] CenterComment on above:Performed By: #### A1C #### [facility] [address] [address] [address] Rich Howe 12-86-1384Qqtz [Mass/Vol]64.0 ug/xDQzfvkl49.0-170.0The [facility] CenterComment on above:Performed By: #### CVDTBH #### [facility] [address] [place] [address] Dr. Rich WelchLIPID PROFILEon [id number]-HDL RATIO NORMSSt. Mary's Medical Center, Ironton CampusComcaro center on above:Result Comment: 3.3 - 4.4 LOW RISK 4.4 - 7.1 AVERAGE RISK 7.1 - 11.0 MODERATE RISK >11.0 HIGH RISKPerformed By: #### LIPID, TSH, T7, CMP #### [facility] [address] [place] [address] Dr. Rich Barronesterol [Mass/Vol]237 mg/dLCritically high<=200The [facility] on above:Performed By: #### LIPID, TSH, T7, CMP #### [facility] [address] [place] [address] Dr. Rich Barronesterol in HDL [Mass/Vol]44 mg/cRMlvtjn19-56HghMercy Health Kings Mills Hospital on above:Performed By: #### LIPID, TSH, T7, CMP #### [facility] [address] [place] [address] Dr. Rich Barronesterol in LDL [Mass/Vol]172.2 mg/dLFirelands Regional Medical CenterComcaro center on above:Performed By: #### LIPID, TSH, T7, CMP #### [facility] [address] [place] [address] Dr. Rich Ward.total/Cholesterol in HDL [Mass ratio]5.4 {ratio} NormalMercy Health Kings Mills Hospital on above:Performed By: #### LIPID, TSH, T7, CMP #### [facility] [address] [place] [address] Dr. Rich Clark NORMAL> or = 60 mg/dl - LOW CARDIOVASCULAR RISK <40 mg/dl - HIGH CARDIOVASCULAR RISKFirelands Regional Medical CenterComcaro center on above:Performed By: #### LIPID, TSH, T7, CMP #### [facility] [address] [place] [address] Dr. Rich Gleason CALC NORMALSEE [facility] HospitalComcaro center on above:Result Comment: <100 mg/dl OPTIMAL 100 - 129 mg/dl NEAR OR ABOVE OPTIMAL 130 - 159 mg/dl BORDERLINE HIGH 160 - 189 mg/dl HIGH >190 mg/dl VERY HIGH Performed By: #### LIPID, TSH, T7, CMP #### [facility] [address] [address] [address] Rich WelchTriglyceride [Mass/Vol]104 mg/dLNormal<=150The [facility] Comment on above:Performed By: #### LIPID, TSH, T7, CMP #### [facility] [address] [address] [address] Rich WelchVLDL CALC20.8 mg/dLNormalThe [facility] CenterComment on above: Performed By: #### LIPID, TSH, T7, CMP #### [facility] [address] [address] [address] Rich Good 14(COMP METB)on 91-09-7101Ytwpyke [Mass/Vol]3.5 g/dLNormal 3.4-5.0The [facility] CenterComment on above:Performed By: #### LIPID, TSH, T7, CMP #### [facility] [address] [address] [address] Rich WelchAlbumin/Globulin [Mass ratio]0.9 {ratio}NormalThe [facility] CenterComment on above:Performed By: #### LIPID, TSH, T7, CMP #### [facility] [address] [place] [address] Dr. Rich White [Catalytic activity/Vol]93 U/SNklhnv88-683Ldq [facility] Columbusment on above:Performed By: #### LIPID, TSH, T7, CMP #### [facility] [address] [address] [address] Rich Sewell [Catalytic activity/Vol]44 U/BPutgkc00-52Biz [facility] on above:Performed By: #### LIPID, TSH, T7, CMP #### [facility] [address] [address] [address] Rich Elias gap [Moles/Vol]8.5 mmol/LNormalThe [facility] CenterComment on above:Performed By: #### LIPID, TSH, T7, CMP #### [facility] [address] [address] [address] Rich WelchAST [Catalytic activity/Vol]26 U/BGeswra48-82Ejz [facility] CenterComment on above:Performed By: #### LIPID, TSH, T7, CMP #### [facility] [address] [address] [address] Rich WelchBilirubin [Mass/Vol]0.3 mg/dLNormal0.2-1.0The [facility] Comment on above:Performed By: #### LIPID, TSH, T7, CMP #### [facility] [address] [address] [address] Rich WelchCalcium [Mass/Vol]9.0 mg/dLNormal8.5-10.1The [facility] Comment on above:Performed By: #### LIPID, TSH, T7, CMP #### [facility] [address] [address] [address] Rich WelchChloride [Moles/Vol]106 mmol/PDscbhr97-705Ybw [facility] Comment on above:Performed By: #### LIPID, TSH, T7, CMP #### [facility] [address] [address] [address] Rich WelchCO2 [Moles/Vol]31.0 mmol/DDrwtky10.0-32.0The [facility] Comment on above:Performed By: #### LIPID, TSH, T7, CMP #### [facility] [address] [address] [address] Rich WelchCreatinine [Mass/Vol]1.11 mg/dLCritically high0.55-1.02The [facility] CenterComment on above:Performed By: #### LIPID, TSH, T7, CMP #### [facility] [address] [address] [address] Villanueva ChangEGFR-AF MALDIVIAN>60Normal>=60The [facility] CenterComment on above:Performed By: #### LIPID, TSH, T7, CMP #### [facility] [address] [address] [address] Rich QuinteroGFR-NON AF QFKTRVZZ28 mL/min/1.95x1Ehwcqrxzsz low>=60The [facility] CenterComment on above:Performed By: #### LIPID, TSH, T7, CMP #### [facility] [address] [address] [address] Rich WelchGlobulin (S) [Mass/Vol]3.7 g/dLNormTriHealth Bethesda North HospitalComment on above:Performed By: #### LIPID, TSH, T7, CMP #### [facility] [address] [address] [address] Rich WelchGlucose [Mass/Vol]121 mg/dLCritically fbon55-577Kei [facility] CenterComment on above:Performed By: #### LIPID, TSH, T7, CMP #### [facility] [address] [place] [address] Dr. Rich WelchPotassium [Moles/Vol]4.5 mmol/LNormal3.5-5.1The [facility] Comment on above:Performed By: #### LIPID, TSH, T7, CMP #### [facility] [address] [place], [place] [address] Dr. Rich WelchProtein [Mass/Vol]7.2 g/dLNormal6.4-8.2[facility] Comment on above:Performed By: #### LIPID, TSH, T7, CMP #### [facility] [address] [place] [address] Dr. Rich WelchSodium [Moles/Vol]141 mmol/EIwjiwe401-463Vcg [facility] Comment on above:Performed By: #### LIPID, TSH, T7, CMP #### [facility] [address] [place] [address] Dr. Rich WelchUrea nitrogen [Mass/Vol]16.0 mg/dLNormal7.0-18.0The [facility] CenterComment on above:Performed By: #### LIPID, TSH, T7, CMP #### [facility] [address] [place] [address] Dr. Rich WelchUrea nitrogen/Creatinine [Mass ratio]14.4 mg/mgNoEast [place] Regional HospitalComment on above:Performed By: #### LIPID, TSH, T7, CMP #### [facility] [address] [place], [place] [address] Dr. Rich Perales 25-95-2625ISS2.915 uIU/mLCritically high0.358-3.740The [facility] CenterComment on above:Performed By: #### LIPID, TSH, T7, CMP #### [facility] [address], [place] [address] Dr. Rich Welch Vital Signs Date TimeVital SignValuePerforming JegjeupynAmtbfymd45-71-3279 14:47-0400Body .6 cmGaamanda De Santiagoley LACQUER POLISHER-CNM Work Phone: [facility]10-20-2025 14:47-0400Body mass index (BMI) [Ratio]35.39 kg/j5Lusgu Sholey LACQUER POLISHER-CNM Work Phone: [facility]10-20-2025 14:47-0400Body crhkmu60.53 kgGayla Sholey LACQUER POLISHER-CNM Work Phone: [facility]10-20-2025 14:47-0400Diastolic blood cwjpsorc86 mm[Hg]Hardy Sholey LACQUER POLISHER-CNM Work Phone: [facility]10-20-2025 14:47-0400Systolic blood njetqmyl990 mm[Hg]Hardy Sholey LACQUER POLISHER-CNM Work Phone: [facility]07-11-2025 12:58-0400Body sbtuzn523.6 cmLisa Krotzer LACQUER POLISHER-MACHINE II ENGRAVER Work Phone: [facility]07-11-2025 12:58-0400Body mass index (BMI) [Ratio]33.27 kg/m2Lisa Krotzer LACQUER POLISHER-MACHINE II ENGRAVER Work Phone: [facility]07-11-2025 12:58-0400Body anyumi02.91 kgLisa Krotzer LACQUER POLISHER-MACHINE II ENGRAVER Work Phone: [facility]07-11-2025 12:58-0400Diastolic blood ujwtpoam76 mm[Hg]Afsaneh Jacome LACQUER POLISHER-MACHINE II ENGRAVER Work Phone: [facility]07-11-2025 12:58-0400Systolic blood vlkogvtj732 mm[Hg]Afsaneh Jacome LACQUER POLISHER-MACHINE II ENGRAVER Work Phone: [facility]04-12-2025 11:02-0400Body htuxku020.02 [facility] 11:02-0400Body mass index (BMI) [Ratio]35.6 kg/f9VujsrtpuxGenesis Hospital04-12-2025 11:02-0400Body rrgxdrdarfn43.8 [degF][facility]04-12-2025 11:02-0400Body ihamfw75.34 kgGen[facility]04-12-2025 11:02-0400Diastolic blood mm[Hg][facility] 03-03-2025 11:02-0400Heart rate82 /[facility] 03-03-2025 11:02-0400Respiratory rate18 /[facility] 03-03-2025 11:02-0798GwL8% (BldA) [Mass fraction]96 %[facility]04-12-2025 11:02-0400Systolic blood xxpinrxt218 mm[Hg][facility]04-11-2025 09:18-0400Body jjttuc504.6 cmSsue Ely LACQUER POLISHER-MACHINE II ENGRAVER Work Phone: [facility]04-11-2025 09:18-0400Body mass index (BMI) [Ratio]34.81 kg/x7Xljftntmhkal Ely LACQUER POLISHER-MACHINE II ENGRAVER Work Phone: [facility]04-11-2025 09:18-0400Body qmafyo61.99 kgStkal Ely LACQUER POLISHER-MACHINE II ENGRAVER Work Phone: [facility]04-11-2025 09:18-0400Diastolic blood yhbipnmc06 mm[Hg]Farzana Ely LACQUER POLISHER-MACHINE II ENGRAVER Work Phone: [facility]04-11-2025 09:18-0400Systolic blood xaduyskf497 mm[Hg]Farzana Ely LACQUER POLISHER-MACHINE II ENGRAVER Work Phone: [facility]11-15-2022 15:36-0500Blood Pressure LocationMichael NILL [facility] Lpjrbzqx88-25-1152 15:36-0500Diastolic blood ajtpljmo39 mm[Hg]Umm NILL [facility] Udfqkqiq49-08-6755 15:36-0500Heart rate 72 /minMichael NILL [facility] Tkqijvxb44-60-9857 15:36-0500 Respiratory rate16 /minMichael NILL [facility] Nhgmbaec74-16-8696 15:36-0500Systolic blood znusnwgg281 mm[Hg]Umm NILL [facility] [place] Encounters Encounter DateEncounter TypeCare ProviderFacilityStart: 09-18-2025 End: 21-07-0291vlacaajfegFKKHPVPMemorial Health System Start: 09-13-2025 End: 31-92-3327zydtbypggbSWAOAJNFairfield Medical Center Start: 09-10-2025 End: 92-76-0819Zpcqpc outpatient visit 15 minutesHardy Morejon APRN-CNJina Work Phone: [facility] Obstetrics/GynecologyComment on above:Vaginal irritation (Primary Dx); Family history of breast cancer in mother; Family history of malignant neoplasm of breast in first degree relativeStart: 09-10-2025 End: 49-96-0986uiqxqumzktTIKDKStaten [facility] Ambulatory PPGStart: 09-10-2025 End: 92-72-0174Loadcfkkr encounterHardy Morejon APRN-CNM Work Phone: [facility]st[facility]s/GynecologyStart: 10-13-3732loxxdpfqbwMtegdvw R NILLFacility:FERNANDO BellevueStart: 06-25-2025 End: 38-82-6844poybwpvggsAQZRMX BERNARDODetwiler [facility] Start: 20-55-7958Mdrqldsjjg and management of inpatientSAMAR KHUniversity Hospitals Conneaut Medical Centertart: 23-35-9810[place]ornown and management of inpatientKYU CHUL [facility] Hospitaltart: 06-07-2025 End: 72-52-6043Cczhfsibuc and management of inpatientDARYL T [facility] Hospitaltart: 06-01-2025 End: 24-05-3075Zrzkvwu encounter procedureAfsaneh Jacome LACQUER POLISHER-MACHINE II ENGRAVER Work Phone: [facility] Work Phone: Start: 06-01-2025 End: 74-35-4227Puagegjf preventive med est patient 40-64yrsAfsaneh Jacome LACQUER POLISHER-MACHINE II ENGRAVER Work Phone: [facility] Obstetrics/GynecologyComment on above:Well woman exam with routine gynecological exam (Primary Dx)Start: 06-01-2025 End: 32-21-9134zcaiwkwlcmXIHJ M [facility] Ambulatory PPGStart: 05-21-2025 End: 94-91-3629siywemjqpiYcnzfsr M Hoy MD Work Phone: [facility] Work Phone: Start: 05-21-2025 End: 00-08-7998Jjtjmmw encounter procedureElie Jackson [facility] Work Phone: Start: 05-21-2025 End: 22-23-8272Kqnycim encounter procedureElie Jackson DOElastar [facility] Start: 05-21-2025 End: 89-98-5834whwcmvifrxYdlnsvy M Hoy MD Work Phone: [facility] Work Phone: Start: 05-14-2025 End: 04-37-7006mpreevbtjgWJOLKAOhioHealth [facility] Start: 04-23-2025 End: 65-09-3175tgxpkjgfbtIODTNQSalem [facility] Start: 04-10-2025 End: 14-80-8773kioumnitthXBHLOhio State University Wexner Medical Centertart: 03-03-2025 End: 92-40-1155kbnvaujncyGiwxlafiiOhioHealth Shelby Hospital Work Phone: Start: 03-03-2025 End: 20-71-8164Hfplyom encounter procedureEcu Health [facility] Work Phone: Start: 03-02-2025 End: 71-36-4276tcwwtpdltzDTTFYXRTJ M [facility] PPG Start: 03-02-2025 End: 73-46-3951Orqcoj outpatient visit 15 minutesStkal Ely LACQUER POLISHER-MACHINE II ENGRAVER Work Phone: [facility] Obstetrics/GynecologyComment on above:Genitourinary syndrome of menopause (Primary Dx); PCB (post coital bleeding)Start: 02-26-2025 End: 21-99-0599tcqhgbcbitZWIRWGSalem Regional Medical Center Start: 02-07-2025 End: 87-35-3361pkkdyoidlbSMHGGood Samaritan Hospitaltart: 01-09-2025 End: 21-80-2156grskhxpsmvWVCWHolzer Medical Center – Jacksontart: 01-02-2025 End: 99-32-4658pkeasgfkbqUQTICUniversity Hospitals Geneva Medical Centertart: 10-26-2024 End: 30-32-0678wcesiflhsvXPDCDSDJ.W. [facility] Start: 10-03-2024 End: 14-44-8404zmadhnhiyiKNCGOhio State University Wexner Medical Centertart: 19-91-9526Nmefulycd for preprocedural laboratory examinationDR UMM JACQUESL .[facility] HospitalStart: 11-25-2022 End: 03-30-4962dkhhniukkwXZ UMM NILL .Facility:B6Adklh: 11-20-2022 End: 34-56-8924dkigzeqecgGV UMM NILL .Facility:E2Dumuk: 11-20-2022 End: 13-83-4208Blvffaqqi for preprocedural laboratory examinationDR UMM JACQUESL .Facility:W5Nbitr: 10-06-2022 End: 40-98-6731Kzplbnq encounter procedureMichael R NILL General Surgery Nill/Said [place] Start: 10-02-2022 End: 89-46-8930uoyylizhrjEX KENDRA HOY .Facility:Q2Yfuyi: 09-30-2022 End: 24-61-7892vaahjrxndgNH KENDRA HOY .Facility:S3Erbmu: 25-88-2362Lmqbejhrp for general adult medical examination without abnormal findingsDR KENDRA HOY . [facility] HospitalStart: 09-24-2022 End: 77-07-0452tfnprxtxzcSZ SYBIL MARKER .Facility:W1Krgdx: 09-23-2022 End: 17-55-0028pvkfrhxiocVG KENDRA HOY .Facility:U2Wgckf: 09-23-2022 End: 85-13-4368Rdzrberdh for general adult medical examination without abnormal findingsDR KENDRA HOY .Facility:F8Xucis: 94-25-0231mrfbsoqyerOO KENDRA HOY . Facility:H1 Procedures DateProcedureProcedure DetailPerforming ClinicianStart: 33-67-1283Qjvjj dip stick/tablet rgnt auto w/o microscopyTajylemerald PIZARRO Work Phone: Start: 41-49-6369Zlqzme-up visitFollow-Bernarda LYNNZERStart: 22-55-5661A-ray of left knee, four viewsDouglas Longy Work Phone: Start: 97-49-8481U-ray of right knee, two viewsDouglas Hoy MD Work Phone: Start: 82-96-1339Uorptu-up visitFollow-upMOHAMED OMBALLIStart: 50-02-2804Ypbdavbtatq removal of ureteric stentMichael NILL Bilateral tubal ligationMichael NILL Catheterization of left heartMichael NILL CholecystectomyMichael NILL Cystoscopic insertion of ureteric stentMichael NILL Dilation and curettage of uterusMichael NILL Vaginal hysterectomyMichael NILL Plan of Treatment DateCare ActivityDetailAuthorStart: 29-79-4695Icblb BMI ScreeningAdult BMI ScreeningProKettering Memorial Hospital SystemStart: 17-41-1525Xrflrzp ScreeningTobacco ScreeningProKettering Memorial Hospital SystemStart: 67-58-6020Vqbkw BMI Follow Up PlanAdult BMI Follow Up PlanGreen Cross Hospital SystemStart: 65-66-7553Sobup BMI Screening Adult BMI ScreeningGreen Cross Hospital SystemStart: 15-70-0914Mzskjme Screening Tobacco ScreeningGreen Cross Hospital SystemStart: 37-31-5996Rivxs BMI Screening Adult BMI ScreeningProKettering Memorial Hospital SystemStart: 69-36-2954Eqokknk Screening Tobacco ScreeningGreen Cross Hospital SystemStart: 09-25-2025 End: 99-16-3581Ashqlrn encounter ubhfrjhvo42/04/2025 1:30 PM EST Procedure visit [facility] [address] [place] [address] Joslyn Mckeon MD [address] [place] [address] [facility]s/GynecologyStart: 43-98-9826LVUKL-19 Vaccine (3 - 2025-26 season) COVID-19 Vaccine ( season)[facility] SystemStart: 07-23-2025 Influenza vaccinationInfluenza VaccineFormerly [facility]fort Hospitaltart: 06-01-2025 End: 42-17-0944Sgadake encounter /11/2025 1:00 PM EDT Office Visit [facility] [address] [facility] [place] [phone] Afsaneh Jacome, LACQUER POLISHER-MACHINE II ENGRAVER [address] [place] [address] [facility] Obstetrics/GynecologyStart: 38-08-9438O-ray of left knee, four viewsXR knee LT 4V*[facility] Centertart: 56-29-9672X-ray of right knee, two viewsXR knee RT 2VAdena Fayette Medical Centertart: 70-44-3778LS Knee - left 4 ViewsAdena Fayette Medical Centertart: 57-13-6211KO Knee - right 2 ViewsAdena Fayette Medical Centertart: 41-74-2107QFCYK-19 Vaccine ( season)COVID-19 Vaccine ( season)[facility] Start: 14-94-3872Lypqyxvguyoxjx of varicella zoster vaccineZoster (Shingles) Vaccine (1 of 2)[facility]ly [facility] Hospitaltart: 52-70-3846AZrO,Tdap and Td Vaccines (1 - Tdap)DTaP,Tdap and Td Vaccines (1 - Tdap)[facility] Start: 20-23-1060Ygucz BMI Follow Up PlanAdult BMI Follow Up PlanGreen Cross Hospital SystemStart: 31-49-5517Hbebrrcutl ScreeningDepression ScreeningFormerly [facility] Hospitaltart: 65-10-0100Dghtkf Use: CardiovascularStatin Use: CardiovascularProMercy HealthBacteria identified in Urine by Culture Urine Culture Microbiology Routine Vaginal irritation 09/10/2025 3:47 PM EDT [facility] CenterMicroscopic observation [Identifier] in Unspecified specimen by Gram stainGram stain Microbiology Routine Vaginal irritation 09/10/2025 3:47 PM [facility] HospitalYeast CultureYeast Culture Microbiology Routine Vaginal irritation 09/10/2025 3:47 PM EDTProMedusa health university hospital Work Phone: [facility] Immunizations Immunization DateImmunizationNotesCare WdxuegdnNogsfedq84-46-9632celwtcumz virus vaccine, unspecified formulationSteprico Lopeznelly LACQUER POLISHER-MACHINE II ENGRAVER Work Phone: [facility] Sdhbod82-78-0655GLYJ-FuE-9 (COVID-19) mRNA BNT-162b2 vaxMichael NILL General Surgery Iysdarch34-74-0904EFAF-JcW-7 (COVID-19) mRNA BNT-162b2 vaxMichael NILL General Surgery BellevueNEGATED: Highlighted row has not occurred!04-36-3383pchfuolyd, injectable, quadrivalent, preservative free [facility] Payers DatePayer CategoryPayerPolicy [id number]-pay2023MedicaidANTHEM MEDICAID [id number] [id number] [id number] .1.197749.3.57[id number] .1.850775.3.57[id number] .1.073663.3.57[id number] 2.16.840.1.571338.3.57[id number] 2.16.840.1.762490.3.57[id number] 2.16.840.1.767234.3.57[id number] 2.16.840.1.509984.3.57[id number] 2.16.840.1.041345.3.57[id number] 2.16.840.1.713813.3.57[id number] 2..840.1.341882.3.57[id number] 2.16.840.1.374644.3.57[id number] 2.16.840.1.502828.3.579.2.239373-18-9179Zfyq-kyq49233416618-13-2462Mhkujgv [id number] /[id number] j1814k35-30i7-1468-0c5k-84973xjm427l [id number] 2.840.1.657933.3.579.2.531 Social History DateTypeDetailFacilityStart: 10-06-2022 End: 19-76-2623Xskmvsz smoking statusEx-smoker (finding)General Surgery [place] Tobacco smoking statusNeverGeneral Surgery BellevueStart: 01-02-2021 End: 53-73-1674Oae Assigned At BirthFeMercy Health St. Elizabeth Boardman Hospitaltart: 51-90-9337Ouyqbld of tobacco useCurrent smokerWright-Patterson Medical CenterHistory of tobacco useCigarette SmokerFormerly [facility] Hospitaltart: 01-02-2021 End: 47-78-0825Dmswysrdyb smoked current (pack per day) - Aaohdwlt4MkzFzdzdm[address] [place], [place] [address]tart: 74-70-6715Tcqxmjv use and exposureSmokeless tobacco non-user Formerly [facility] Hospitaltart: 03-02-2025 End: 76-92-4233Ngxexwdmu beverage intakeEx-drinker (finding)Formerly [facility] Hospitaltart: 71-47-1416Bho assigned at birthNot on fileWright-Patterson Medical Center Start: 06-27-2015 End: 99-72-7522BjrNuluag (finding)Formerly [facility] Hospitaltart: 66-30-7883Xxk Assigned At BirthKettering Health Troytart: 16-01-3911Umjfcuj smoking status NHISSmokes tobacco daily (finding)[facility] HospitalHow often do you have a drink containing alcohol?Monthly or lessWright-Patterson Medical CenterHow many standard drinks containing alcohol do you have on a typical day?3 or 4W[facility]-Patterson Medical CenterHow often do you have 6 or more drinks on 1 occasion?Less than monthlyW[facility]-Pat[facility] Medical Center Functional Status MoteWdruwchvmwDvzihsDryvyzrw73-49-4377Jddge score [AUDIT-C]3 09/10/2025 2:47 PM EDT Kiesha Burton LPSentara RMH Medical CenterAgmcia68-58-4700Jkrellgumu StatusN/A General Surgery [facility] Clinical Notes 11-25-2022 to 09-18-2025 Note Date & TqkcTfaoHmvntjil63-05-2896 Note Attestation signed by Richa Viramontes MD at 09/19/2025 8:38 AM I have seen and examined the patient. I reviewed the resident/fellow note and I agree with the findings and plan. Richa Viramontes MD, D-AABIP Interventional Pulmonary Medicine Pulmonary and Critical Care Medicine [facility] Physicians Pulmonary Clinic Visit Note Patient: Aby Madrigal Age: 60 y.o. : 1965 Account No.: [id number] Referring physician: Dr. Jarocho Saldaña Chief complaint: [...] a former tobacco user. Quit in 2021, 67-kghx-qbng history. Most Recent Chest Imaging: Low-dose CT [...] by mouth in the morning. 06/08/25 06/08/26 Jesus Welch MD carvedilol (Coreg) 12.5 mg tablet Take 2 tablets (25 mg) by mouth two times daily for 197 doses. 06/08/25 09/15/25 Jesus Welch MD clopidogrel (Plavix) 75 mg tablet Take 1 tablet (75 mg) by mouth in the morning. 06/08/25 06/03/26 Jesus Welch MD hydrALAZINE (Apresoline) 50 mg tablet Take 50 mg by mouth if needed in the morning, at noon, and at bedtime. Patient taking differently: Take 50 mg by mouth if needed. 08/23/24 Historical Provider, Invokana 100 mg Take 300 mg by mouth in the morning. 08/23/24 Historical Provider, isosorbide mononitrate ER (Imdur) 30 mg 24 hr tablet Take 1 tablet (30 mg) by mouth in the morning. Do not crush or chew. 06/25/25 06/25/26 Gomez Spence MD LORazepam (Ativan) 1 mg tablet TAKE 1 TABLET BY MOUTH THREE TIMES A DAY FOR 30 DAYS Patient taking differently: Take 0.5 mg by mouth every 6 (six) hours if needed for sleep. 10/17/24 Historical Provider, magnesium oxide (Mag-Ox) 400 mg (241.3 mg magnesium) tablet Take 400 mg by mouth in the morning. 05/01/25 Historical Provider, Protonix 40 mg EC tablet [...] mg) by mouth in the morning. 07/01/24 10/03/25 Nona Fuchs MD spironolactone (Aldactone) 50 mg tablet Take 0.5 tablets (25 mg) by mouth in the morning. Patient taking differently: Take 12.5 mg by mouth in the morning. 04/23/25 Gomez Spence MD Social history: reports that she [...] Skin: General: Skin is warm and dry. Neurolog (more content not included)...[facility] 09-10-2025 Miscellaneous Notes* Telephone Encounter - JUAREZ Ignacio - 09/10/2025 6:32 PM EDT Call to pt. To discuss U/A results of >500 glucose in her urine. Pt. States she is out of her invakana. Pt. Advised to call her doctor in the next 1-2 days to advise of the preceding. Pt. Verbalized understanding. documented in this encounterWright-Patterson Medical Center10-20-2025 Telephone encounter Note* Telephone Encounter - JUAREZ Ignacio - 09/10/2025 6:32 PM EDT Call to pt. To discuss U/A results of >500 glucose in her urine. Pt. States she is out of her invakana. Pt. Advised to call her doctor in the next 1-2 days to advise of the preceding. Pt. Verbalized understanding. [facility]10-20-2025 History of Present illness Narrative* Hardy Morejon, LACQUER POLISHER-CNM - 09/10/2025 2:30 PM EDT Subjective: Aby Madrigal is a 60 y.o. female who presents for evaluation of vaginal itching. Symptoms havebeen present for 6 days. Vaginal symptoms: burning, local irritation, urinary symptoms of urinary frequency, and vulvar itching. Contraception: hysterectomy. Patient denies pelvic pain. Patient used a one day OTC Monistat on 09/07/25 without much relief. She denies having any fever or chills The following portions of the patient's history were reviewed and updated as appropriate: allergies, current medications, past family history, past medical history, past social history, past surgicalhistory, problem list, and medication reconciliation was completed including current medication andpost discharge medication. Patient was offered a medical nicu rn and declined. Review of Systems As noted in HPI Objective: Physical Exam Vitals and nursing note reviewed. Constitutional: General: She is not in acute distress. Appearance: She is obese. She is not toxic-appearing. HENT: Head: Normocephalic and atraumatic. Eyes: Conjunctiva/sclera: Conjunctivae normal. Pulmonary: Effort: Pulmonary effort is normal. Abdominal: Tenderness: There is no right CVA tenderness or left CVA tenderness. Hernia: There is no hernia in the left inguinal area or right inguinal area. Genitourinary: Exam position: Lithotomy position. Pubic Area: No rash or pubic lice. Marcel stage (genital): 5. Labia: Right: Tenderness and lesion present. No rash or injury. Left: Tenderness and lesion present. No rash or injury. Comments: Slight tenderness noted on the right and greater on the left Slit-like openings noted vertically at juncture of labia minora w/labia majora. No discharge, no edema, no erythema. This area appears thin and has a whitish hue to it. It is paler than the other tissue. Lymphadenopathy: Lower Body: No right inguinal adenopathy. No left inguinal adenopathy. Skin: General: Skin is warm and dry. Neurological: General: No focal deficit present. Mental Status: She is alert. Psychiatric: Mood and Affect: Mood normal. Behavior: Behavior normal. Assessment: Aby was seen today for vaginitis. Diagnoses and all orders for this visit: Vaginal irritation - Yeast Culture - Gram stain - Urinalysis - Urine Culture Family history of breast cancer in mother Family history of malignant neoplasm of breast in first degree relative Comments: maternal aunt; Plan: Discussed recommendation for genetic testing r/t 2 family members w/Hx. Of breast cancer. Pt. States her family has not had genetic testing done and she does not want it. Symptomatic local care discussed. Will await cultures prior to Tx. Discussed w/pt. F/u w/doctor for evaluation of area which has slight white discoloration to determine if biopsy needed to rule out lichens sclerosis Discussed vaginal hygiene, such as avoidance of tight-fitting clothing, no internal cleansing, use of cotton underwear vs. Nylon. SEBASTIAN Stark APRN, CNM Gayla M Sholey, APRN-CNM 09/10/251830 documented in this encounterWright-Patterson Medical Center08-04-2025 NoteUT Cardiology - [facility] Subjective Aby Madrigal is a 60 [...] infarction) (CMS/HCC) Hypokalemia Coronary artery disease involving inupiat coronary artery of inupiat heart without angina pectoris Depression, major, severe [...] and V6. She was then admitted to [facility] on 07/11/2024 with NSTEMI. She underwent [...] on 01/31/2025 she was evaluated at the [facility] because of chest pain. Workup [...] and are negative. Objective (more content not included)...[facility] 06-08-2025 Note Attestation with edits by Bijan [...] personal documentation from me. Bijan Licea MD, [facility] Cardiology Progress Note Subjective Subjective: Aby Madrigal is a 59 y.o. female Patient transferred to [facility] from [facility]. She presented to outside hospital with 1 [...] Value Ventricular Rate 53 Atrial Rate 53 WA Interval 164 QRS DURATION 90 QT Interval 432 QTC CALCULATION(BAZETT) 405 P [place] 41 R-[place] -5 T Wave [place] 97 Impression Sinus bradycardia Left ventricular hypertrophy [...] Results Transthoracic echo (TTE) complete 1 1 [facility] Heart Station [address] [place], [place] [id number] (fax) Echocardiogram-[facility] Name: ABY MADRIGAL Study Date: 06/08/2025 08:50 AM B/P: 64 mmHg/197 mmHg HR: 49 bpm Date of : 1965 Location: [facility] Height: 64 in. Age: 59 year(s) [...] systolic function is hyperdy (more content not included)...[facility] 06-08-2025 NoteHospital Medicine Discharge Summary Final Discharge Diagnosis: Atypical chest pain Positive stress test Coronary artery disease S/p L cardiac catheterization 06/07 Status post RCA stent placement 06/07 Hypertrophic septum Hyperaldosteronism Essential hypertension Sleep apnea Obesity class I, BMI 33.89 Admission Diagnosis: NSTEMI (non-ST elevated myocardial infarction) ([facility]) [I21.4] Hospital course: Ms. Aby Madrigal is an 59 y.o. female admitted as a transfer from [facility] where she presented with 1 day history of intermittent chest pain anterior chest nonradiating no associated diaphoresis nausea or vomiting dyspnea.. Patient said that she had a stress test done a day back and was told it to be abnormal and per ER physician at [facility] the post exercise test showed ST changes [...] religiously or that it could cause an NM due to stent rethrombosis. Patient is discharged [...] Center 06/25/2025 3:30 PM Gomez Spence MD [facility] 07/24/2025 1:00 PM Feng Christie MD [facility] ENDOCR [facility] Your medication list CHANGE how you take [...] Medications These medications were sent to [facility] - [place], [place] - [address] [place] [address] [place] [address], [facility] [address] aspirin 81 mg EC tablet carvedilol 12.5 [...] CHLORIDE mmol/L 111* 1 (more content not included)...[facility]07-17-2025 NotePatient: Aby Madrigal Procedure Information Date/Time: 06/07/25 1255 Procedure: Coronary angiography (Bilateral) Location: [facility] UNDERGROUND ROOF BOLTER 2 BIPLANE / [facility] (Cath) Providers: Omar Cotto [...] products discussed with patient who. Additional Equipment RequestsUniversity of Hawkins Medical [id number] Note- Continue protonixUnWilson [facility]07-17-2025 Note- Pain control - blood pressure control: Optimize [...] gradients up to 34 mmHg w/ valsalva [facility]07-17-2025 NoteOptimize antihypertensives CODE STATUS full codeUnWilson Street Hospital07-17-2025 Note- Continue Aldactone - December of this year: Cortisol: 3.6 and Aldosterone: 7.3[address] Hospital07-17-2025 Note- Continue BG checks - Continue SSI while hospitalized - Continue Farxiga - Consider obtaining V4tXqddbegoltWilson [address] Hospital07-17-2025 Note As the teaching physician, I have personally performed or re-performed the [...] stent was placed. Jesus Welch MD Hospitalist Hospital Medicine Daily Progress Note - 06/07/2025 10:02 AM; Room: [facility]- Admission: 06/07/2025 2:55 AM; Length of stay: 0 days THE HOSPITALIST TEAM PREFERS TO USE [employer] CHAT FOR NON-URGENT COMMUNICATION 7AM-7PM. IF I DO NOT RESPOND WITHIN 20 MINUTES OR URGENT MATTERS, PLEASE CALL THROUGH THE METAL FINISH INSPECTOR. FROM 7PM-7AM, PLEASE PAGE [phone](COVR). Code Status: Full Code Barriers to Discharge: [...] go to the hospital. She went to [facility] and was transferred to [facility]. She is anxious to see the pipe joints supervisor, she has seen Dr. Spence in the [...] & Plan NSTEMI (non-ST elevated myocardial infarction) ([facility]) - Pain control - blood [...] complication, without long-term current use of insulin ([facility]) - Continue BG checks - [...] admission) Lab Results Com (more content not included)...[facility]07-17-[address]07-17-2025 NoteOptimize antihypertensives CODE STATUS full codeUnWilson Street Hospital07-17-2025 NotePain control blood pressure control cycle troponin continue aspirin Plavix statin currently on heparin cardiology to see patientUnWilson Street Hospital07-17-[address] Hospital07-17-2025 NotePPISelect Medical [facility]-2025 NoteHospital Medicine History and Physical 06/07/2025 4:01 AM THE HOSPITALIST TEAM PREFERS TO USE [employer] CHAT FOR NON-URGENT COMMUNICATION 7AM-7PM. IF I DO NOT RESPOND WITHIN 20 MINUTES OR URGENT MATTERS, PLEASE CALL THROUGH THE METAL FINISH INSPECTOR. FROM 7PM-7AM, PLEASE PAGE [phone](COVR). Chief Complaint No chief complaint on file. History of Present Illness Aby Madrigal is an 59 y.o. female admitted as a transfer from [facility] where she presented with 1 day history of intermittent chest pain anterior chest nonradiating no associated diaphoresis nausea or vomiting dyspnea.. Patient said that she had a stress test done a day back and was told it to be abnormal and per ER physician at [facility] the post exercise test showed ST changes [...] & Plan NSTEMI (non-ST elevated myocardial infarction) ([facility]) Pain control blood pressure control cycle troponin continue aspirin Plavix statin currently on heparin cardiology to see patient Gastroesophageal reflux disease without esophagitis PPI Type 2 diabetes mellitus without complication, without long-term current use of insulin ([facility]) Insulin Farxiga blood sugar Primary [...] this hospital stay by a member of [facility] Medicine. Past Medical History Medical History[1] Past [...] file Social Drivers o (more content not included)...[facility]07-11-2025 History of Present illness Narrative* Afsaneh Jina Jacome, LACQUER POLISHER-MACHINE II ENGRAVER - 06/01/2025 1:00 PM EDT Aby Madrigal is a pleasant 59 y.o. 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 Hysterectomy: yes - [...] yes Last mammogram: 2 years ago at [facility], Dr. Moran orders them Dexa Scan: n/a Colonoscopy:1-2 years ago OB History 3 Para 2 Term AB 1 Living 2 SAB 1 IAB Ectopic Multiple Live Births 2 Past Medical History: Diagnosis Date Anxiety GERD (gastroesophageal reflux disease) Heart attack ([facility]) 06/29/2024 Past Surgical History: Procedure Laterality [...] provided. All questions answered. RTO for annual uniforms sales representative exam and / or PRN. ELVIN Singletary 06/01/25 132 documented in this encounterK[facility] [employer] [id number] NoteUT Cardiology - [facility] Clinic Subjective Aby Madrigal is a 59 y.o. year old female patient being seen for a follow up s/p [facility] ER visit. Patient states she was in [...] infarction) (CMS/HCC) Hypokalemia Coronary artery disease involving inupiat coronary artery of inupiat heart without angina pectoris Depression, major, severe [...] and V6. She was then admitted to [facility] on 07/11/2024 with NSTEMI. She underwent [...] on 01/31/2025 she was evaluated at the [facility] because of chest pain. Workup [...] HENT: Head: Normocephalic and (more content not included)...[facility]06-02-2025 NoteUT Cardiology - [facility] Subjective Aby Madrigal is [...] infarction) (CMS/HCC) Hypokalemia Coronary artery disease involving inupiat coronary artery of inupiat heart without angina pectoris Depression, major, severe [...] and V6. She was then admitted to [facility] on 07/11/2024 with NSTEMI. She underwent [...] on 01/31/2025 she was evaluated at the [facility] because of chest pain. Workup [...] wheezing or rales. Chest: (more content not included)...[facility]05-20-2025 Note REASON FOR VISIT + HPI: Aby Madrigal is [...] metoprolol - Jun 2019 CT A/P in [place], [place] performed for abd pain, incidentally [...] mg EC tablet, [place] (more content not included)...[facility]04-12-2025 Evaluation note* Diagnosis Onset Date Resolution Status Admit Date Viral URI acuteApril 2024 10:35amStrain of left kneeacuteJune 2024 2:00pm [facility] Work Phone: 1(210) 390-687104-11-2025 History of Present illness Narrative* Farzana Jina Ely, LACQUER POLISHER-MACHINE II ENGRAVER - 03/02/2025 8:45 AM EDT Aby Madrigal [...] GERD (gastroesophageal reflux disease) Heart attack ([facility]) 06/29/2024 Hypertension MEDS Current [...] ELVIN Ramos 03/02/25 1132 documented in this encounterShelby Memorial HospitalBerkäna Wireless [id number] Instructions* Patient Instructions* ELVIN Ramos - 03/02/2025 [...] and labia. documented in this encounterNorth Country HospitalGetonic [id number] NoteUT Cardiology [facility] Subjective Aby Madrigal is a 59 [...] infarction) (CMS/HCC) Hypokalemia Coronary artery disease involving inupiat coronary artery of inupiat heart without angina pectoris Depression, major, severe [...] and V6. She was then admitted to [facility] on 07/11/2024 with NSTEMI. She underwent [...] on 01/31/2025 she was evaluated at the [facility] because of chest pain. Workup [...] sounds: Normal heart so (more content not included)...[facility]03-19-2025 NoteIR VENOGRAPHY VENOUS SAMPLE Procedure: Bilateral adrenal [...] was achieved using a micropuncture set. A VOSS wire was advanced into the IVC and a 5 Danish vascular sheathwas placed. Selective catheterization of the [...] MD on 02/07/2025 10:[address] [facility] 01-18-2025 NotePatient contacted office, states she called [facility] Interventional Radiology to schedule the referral Dr. Christie had sent over, however no referral was received. Water Carter faxed referral and recent visit note to [phone].[facility]02-18-2025 NoteREASON FOR VISIT + HPI: Aby Madrigal [...] metoprolol - Jun 2019 CT A/P in [place], [place] performed for abd pain, incidentally [...] Hypertension Obstructive sleep apnea Panic attacks Stroke ([facility]) Past Surgical History: Procedure Laterality [...] ER (Imdur) 60 mg (more content not included)...[facility]02-03-2025 NoteWriter spoke with Tram at [facility] regarding this patient. Tram said the way the order was placed through the system they just didn't see it, Tram assured radio script writer that patient was being scheduled at the secondary infusion location. Any questions or concerns call rTam at [phone]. [facility]20[facility] Note Attestation signed by Richa Viramontes MD at 10/27/2024 12:07 PM I have seen and examined the patient. I reviewed the resident/fellow note and I agree with the findings and plan. Richa Viramontes MD Interventional Pulmonary Medicine Pulmonary and Critical Care Medicine [facility] Phys[facility] Pulmonary Clinic Visit Note Patient: Aby Madrigal Age: 59 y.o. : 1965 Account No.: [id number] Chief complaint: RML nodule HPI Aby Madrigal is a 59 y.o. female with hypertension, CAD status post PCI recently in June 2024, cigarette smoking who is presenting to IP clinic via telemedicine as a new patient after being referred by Dr. Jarocho Saldaña. Patient reports recent admission to [facility] ICU for hypertensive emergency. This prompted a CT of the chest which was positive for right middle lobe nodule. She then underwent PCI here at [facility] in June. She is currently on [...] PFTs on file. CT[facility]: Right middle lobe approximately 1.2 cm solid nodule appreciated Subsequent PET CT 2024 at [facility]: Right middle lobe nodule is faintly PET [...] pretest probability of (more content not included)... [facility]11-12-2024 NoteREASON FOR VISIT + HPI: Aby Madrigal [...] metoprolol - CT A/P Jun 2019 in [place], [place] performed for abd pain, incidentally [...] History: Diagnosis Date Abnormal ECG Diabetes mellitus ([facility]) Hyperlipidemia Hypertension Obstructive sleep apnea [...] Take 25 mg by (more content not included)...[facility]01-04-2023 NoteOPERATIVE NOTE OPERATION DATE: 11/25/2022 PREOPERATIVE DIAGNOSIS: [...] in 10 years. CC: Kendra Moran M.D.[facility] note No data available for this section General Surgery [facility] Evaluation note* Diagnosis Genitourinary syndrome of menopause- Primary PCB (post coital bleeding) Postcoital bleeding documented [facility] encounter [facility] System[facility] noteNo assessment information available [facility] Work Phone: Evaluation note* Diagnosis Well woman exam with routine gynecological exam- Primary Routine gynecological examination documented [facility] encounter [facility]* Diagnosis Vaginal irritation- Primary Pruritus of genital organs Family history of breast cancer in mother Family history of malignant neoplasm of breast Family history of malignant neoplasm of breast in first degree relative documented [facility] encounter [facility] instructions No data available for this section General Surgery [facility] Instructions* Attachments The following attachments cannot be sent through Care Everywhere. * Calcium and vitamin D for bone health (Lithuanian) * Vaginal dryness (Lithuanian) documented in this encounterProKettering Memorial Hospital SystemInstructionsNot on file documented in this encounterProKettering Memorial Hospital SystemInstructionsNot on file documented in this encounterProKettering Memorial Hospital SystemProgress note No data available for this section General Surgery [facility] Reason for referral (narrative)No reason for referral information availableBarney Children'S Medical Center Work Phone: Summary Purpose Family History No Family History Records Found Relationship Condition Age at Onset Recorded Date/T luke sister Malignant neoplasm Unknown motherMalignant neoplasmUnknown Advance Directives No Advanced Directives Records Found [...] team informatio n (unrecognized section and content) Team MemberRelationshipSpecialtyStart DateEnd Date Kendra Moran MD PCP - GeneralFamily Medicine06/06/19 Team Status: Active Member Role Status Dates Kendra Moran MD Primary Care Provider Active Team Status: Inactive Member Role Status Dates Kendra Moran MD Primary Care Provider Active Start: March 03, 2025 End: March 03, 2025Rosana Miller ProviderActiveStart: March 03, 2025 End: March 03, 2025 Team Status: Active Member Role Status Dates Kendra Moran MD Primary Care Provider Active Start: May 21, 2025 Elie Jackson DOAttanju ProviderActiveStart: May 21, 2025 Team Status: Inactive Member Role Status Dates Kendra Moran MD Primary Care Provider Active Start: May 21, 2025 End: May 21, 2025Elie Jackson DOAttending ProviderActiveStart: May 21, 2025 End: May 21, 2025Team MemberRelationshipSpecialtyStart DateEnd Date Kendra Moran MD PCP - GeneralFamily Medicine06/06/19Team MemberRelationshipSpecialtyStart DateEnd Date Kendra Moran MD PCP - GeneralFamily Medicine06/06/19 INFORMATION SOURCE (unrecogn ized section and content) DATE CREATED AUTHOR 03/26/[address] [facility] DATE CREATED AUTHOR AUTHOR'S ORGANIZ ATION 02/11/2025 [facility] DATE CREATED AUTHOR AUTHOR'S ORGANIZ ATION 06/05/2025 [facility] DATE CREATED AUTHOR AUTHOR'S ORGANIZ ATION 07/24/2025 [facility] DATE CREATED AUTHOR AUTHOR'S ORGANIZ ATION 09/17/2025 [facility] DATE CREATED AUTHOR AUTHOR'S ORGANIZ ATION 09/19/2025 [facility] Reason for Visit (unrecogniz ed section and content) ReasonCommentsESTABLISHED PATIENTPatient presents today for vaginal bleeding after intercourse.ReasonCommentsGynecologic ExamReasonCommentsVaginitisPatient presents for possible yeast infection with vaginal itching and UTI. Goals (unrecognized section and content) Goals may [...] BE BASED ON THE PRIMARY CLINICAL RECORDS. [facility] [employer], [facility]. provides no warranty or guarantee of the accuracy or completeness of information in this document.
[2025-09-27 14:40] LABS: Anion Gap 13.4; Blood Urea Nitrogen 18.0 mg/dL (7.0-18.0); Calcium 8.9 mg/dL (8.5-10.1); Carbon Dioxide 26.6 mmol/L (21.0-32.0); Chloride 108 mmol/L (98-107); Estimated GFR (African America >60 (>=60 mL/min/1.73m^2); Estimated GFR (Non-African Ame 52 (>=60 mL/min/1.73m^2); Glucose 111 mg/dL (74-106); Potassium 4.0 mmol/L (3.5-5.1); Sodium 144 mmol/L (136-145)
== END 2025-09-27 13:02 | disposition home or self-care (01) ==
LOC: LAB 13:03
PROVIDERS: PCP Family Medicine; Visit Provider Internal Medicine Interventional Cardiology
DX: I11.9 Hypertensive heart disease without heart failure (principal); Z98.61 Coronary angioplasty status; I20.89 Other forms of angina pectoris; E11.8 Type 2 diabetes mellitus with unspecified complications
CPT/HCPCS: 36415; 80048; 93798

== ENCOUNTER 2025-11-13 02:02 | Emergency (ER) | payer MEDICAID, SELFPAY ==
[2025-11-13] VITALS (15 sets, daily range): BP systolic 114–158; BP diastolic 59–76; PULSE 57–87; O2SAT 95–97; BMI 37.2
--- NOTE | 2025-11-13 02:15 | ECG_ITS ---
[facility] Test Date: 2025-11-13 Pat Name: MILAN RASMUSSEN Department: Room: - Gender: Female Gas Pump Attendant: : 1965 Requested By: [id number] Order Number: [id number] Reading MD: GOMEZ JAY M.D. Measurements Intervals [place] Rate: 66 P: 57 AL: 178 QRS: 29 QRSD: 90 T: 79 QT: 416 QTc: 430 Interpretive Statements 1100 Sinus rhythm 4068 Nonspecific Twave abnormality 9130 borderline ECG Compared to ECG 07/08/2025 10:03:09 No significant changes Electronically Signed On 11-14-2025 11:30:53 EST by GOMEZ JAY M.D.
--- NOTE | 2025-11-13 02:37 | ED.CHESTPAI1 ---
HPI - Chest Pain General Chief Complaint: Chest Pain Stated Complaint: CHEST PAIN Time Seen by Provider: 11/13/25 02:30 Mode of arrival: walk-in Limitations: no limitations History of Present Illness HPI narrative: 60-year-old female with a history of coronary artery disease status post AK and 2 coronary stents presents for evaluation. The patient states she woke up this morning and just did not feel comfortable. She rubs her chest stating that something did not feel right in her chest. She states she has had 3 heart attacks and never had any chest pain. She denies any shortness of breath dizziness or diaphoresis. She has no abdominal pain or back pain. She has no lower extremity pain or swelling. She takes aspirin and Plavix twice daily and maintains compliance with her blood pressure medications. Related Data Home Medications ?Medication ?Instructions ?Recorded ?Confirmed aspirin 81 mg capsule 81 mg PO DAILY 04/22/24 07/08/25 clopidogrel 75 mg tablet 75 mg PO DAILY 07/01/24 07/08/25 quetiapine 100 mg tablet (Seroquel) 50 mg PO .QHS 07/24/24 07/08/25 rosuvastatin 40 mg tablet 40 mg PO DAILY 07/24/24 07/08/25 isosorbide mononitrate 60 mg 30 mg PO DAILY 07/31/24 07/08/25 tablet,extended release 24 hr lorazepam 1 mg tablet (Ativan) 1 mg PO Q8H anxiety 07/31/24 07/08/25 magnesium oxide 400 mg (241.3 mg 400 mg PO .QD 05/10/25 07/08/25 magnesium) tablet carvedilol 25 mg tablet 25 mg PO BID 07/08/25 07/08/25 Previous Rx's ?Medication ?Instructions ?Recorded canagliflozin 300 mg tablet 300 mg PO DAILY #30 tabs 11/13/24 (Invokana) pantoprazole 40 mg tablet,delayed 40 mg PO BID #60 tabs 11/13/24 release (Protonix) spironolactone 25 mg tablet 12.5 mg (1/2 x 25 mg) PO QD #30 05/10/25 tabs Allergies Allergy/AdvReac Type Severity Reaction Status Date / Time lisinopril Allergy Severe Cough Verified 11/13/25 02:20 amlodipine Allergy Mild Headache Verified 11/13/25 02:20 alprazolam (From Xanax) AdvReac Severe Watery Eye Verified 11/13/25 02:20 Review of Systems ROS Status of ROS 10 or more systems reviewed and unremarkable except as noted in history and below [facility] Medical History Elevated troponin ?R79.89 - Other specified abnormal findings of blood chemistry (ICD-10) Hypertensive emergency ?I16.1 - Hypertensive emergency (ICD-10) Acute non-ST elevation myocardial infarction (NSTEMI) ?I21.4 - Non-ST elevation (NSTEMI) myocardial infarction (ICD-10) Chest pain ?R07.9 - Chest pain, unspecified (ICD-10) CAD (coronary artery disease) ?I25.10 - Atherosclerotic heart disease of [place] coronary artery without angina pectoris (ICD-10) Hypertensive urgency ?I16.0 - Hypertensive urgency (ICD-10) HTN (hypertension) ?I10 - Essential (primary) hypertension (ICD-10) Hypertensive urgency ?I16.0 - Hypertensive urgency (ICD-10) Chest pain ?R07.9 - Chest pain, unspecified (ICD-10) Anxiety ?F41.9 - Anxiety disorder, unspecified (ICD-10) HTN (hypertension) ?I10 - Essential (primary) hypertension (ICD-10) Hypokalemia ?E87.6 - Hypokalemia (ICD-10) Hypertension, uncontrolled ?I10 - Essential (primary) hypertension (ICD-10) Chest pain ?R07.9 - Chest pain, unspecified (ICD-10) NSTEMI (non-ST elevated myocardial infarction) ?I21.4 - Non-ST elevation (NSTEMI) myocardial infarction (ICD-10) Shortness of breath ?R06.02 - Shortness of breath (ICD-10) Headache ?R51.9 - Headache, unspecified (ICD-10) Elevated d-dimer ?R79.89 - Other specified abnormal findings of blood chemistry (ICD-10) Hypertensive emergency ?I16.1 - Hypertensive emergency (ICD-10) Uncontrolled hypertension ?I10 - Essential (primary) hypertension (ICD-10) Irritable bowel syndrome ?K58.9 - Irritable bowel syndrome without diarrhea (ICD-10) H/O nephrolithotomy with removal of calculi ?Z98.890 - Other specified postprocedural states (ICD-10) ?Z87.442 - Personal history of urinary calculi (ICD-10) Kidney stone ?N20.0 - Calculus of kidney (ICD-10) Sepsis ?A41.9 - Sepsis, unspecified organism (ICD-10) H/O angiography ?Z92.89 - Personal history of other medical treatment (ICD-10) Lung nodule ?R91.1 - Solitary pulmonary nodule (ICD-10) Anxiety ?F41.9 - Anxiety disorder, unspecified (ICD-10) HTN (hypertension) ?I10 - Essential (primary) hypertension (ICD-10) Diabetes ?E11.9 - Type 2 diabetes mellitus without complications (ICD-10) TIA (transient ischemic attack) ?G45.9 - Transient cerebral ischemic attack, unspecified (ICD-10) Surgical History H/O heart artery stent ?Z95.5 - Presence of coronary angioplasty implant and graft (ICD-10) History of appendectomy ?Z90.49 - Acquired absence of other specified parts of digestive tract (ICD-10) H/O tubal ligation ?Z98.51 - Tubal ligation status (ICD-10) History of cholecystectomy ?Z90.49 - Acquired absence of other specified parts of digestive tract (ICD-10) Family History Mother Family history of cancer Father MVA (motor vehicle accident) Brother Family history of stroke Social History Within the past year, how often did you have a drink containing alcohol: never Within the past year, how often did you have six or more drinks on one occasion: never Score interpretation: A score less than 3 is consistent with normal alcohol consumption. Smoking status: Former smoker Second hand tobacco smoke exposure: No Non-prescribed substance use: denies use Previous occupational history: no Known occupational exposures/hazards: No Highest level of school completed/degree received: high school graduate Do you want help with school or training: No Are you now , , , , never or living with a partner: In a typical week, how many times do you talk on the telephone with family, friends, or neighbors: 3 or more times per week How often do you get together with friends or relatives: 3 or more times per week How often do you attend samaritan or restorationism services: never Do you belong to any clubs or organizations such as samaritan groups unions, fraternal or athletic groups, or school groups: no Total score: 1 Score interpretation: A score of less than or equal to 1 indicates the most socially isolated. Little interest or pleasure in doing things: not at all Feeling down, depressed, or hopeless: not at all Feel stressed/tense/nervous/anxious/difficulty sleeping: not at all Do you think of yourself as: straight/heterosexual Gender Identity: female Exam Narrative Exam Narrative: Vital signs and Nursing Notes reviewed: Normal pulse, normal respiratory rate, normal blood pressure, she is not hypoxic with pulse ox of 95% on room air General: Awake, alert, oriented, no acute distress, lying comfortably on the stretcher HEENT: Normocephalic atraumatic, mucous membranes are moist and pink, eyes are clear, normal conjunctiva, vision is grossly intact Neck: Supple, no JVD Chest: Lungs are clear to auscultation with good air entry, there is no wheezing rhonchi or rales appreciated no accessory muscle use, patient is speaking in complete sentences-no chest wall tenderness to palpation CVS: Regular rate and rhythm S1-S2, no murmurs rubs or gallops, pulses are brisk and equal bilaterally ABD: Soft, nondistended, nontender, no rebound guarding or rigidity, bowel sounds are normal, no pulsatile masses appreciated Extremities: Moving all extremities, no lower extremity tenderness or swelling noted, negative Homans' sign, pulses are brisk and equal bilaterally Skin: Normal in appearance without rash,pallor, petechiae or purpura Neuro: No focal deficits Constitutional Vital Signs, click to edit/add: Last Vital Signs Pulse 64 11/13/25 02:50 Resp 17 11/13/25 02:50 BP 139/59 11/13/25 02:50 Pulse Ox 95 11/13/25 02:50 Course Vital Signs Vital signs: Vital Signs Pulse Rate 67 11/13/25 02:18 Respiratory Rate 15 11/13/25 02:18 Pulse Oximetry 96 11/13/25 02:18 Pulse Rate 64 11/13/25 02:50 Respiratory Rate 17 11/13/25 02:50 Blood Pressure 139/59 11/13/25 02:50 Pulse Oximetry 95 11/13/25 02:50 MDM - Chest Pain MDM Narrative Medical decision making narrative: This 60-year-old female with a history of hypertension, diabetes and coronary artery disease status post AK and 2 coronary stents presents for evaluation of generally not feeling well this morning. The patient states she went to bed and woke up and just did not feel right. She drove herself to the emergency department. She denies any specific chest pain shortness of breath dizziness diaphoresis abdominal pain or back pain. She takes aspirin and Plavix. An EKG done upon arrival is a sinus rhythm at 66 bpm with no acute changes. Her lungs are clear, abdomen is soft. She was placed on the quality assurance monitor final and was monitored while she was in the emergency department. She has a normal white count and stable hemoglobin. Electrolytes are normal. Troponin and delta troponin are both normal. 1 view chest x-ray does not show any acute infiltrate with a normal mediastinum and normal cardiac borders. The patient's blood pressure has remained stable while in the emergency department. She feels comfortable being discharged home at this time. 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 She has not had any actual complaints of chest pain while in the ER. Medical Records Data Attestation: I reviewed the patient's medical records. Lab Data Attestation: I reviewed the patient's lab results. Labs: Lab Results 11/13/25 11/13/25 Range/Units 02:29 03:52 WBC 6.9 (4.0-11.0) 10^3/uL RBC 4.08 L (4.20-5.40) 10^6/uL Hgb 11.3 L (12.0-16.0) g/dL Hct 34.8 L (36.0-48.0) % MCV 85.3 (81.0-99.0) fL MCH 27.7 (26.7-34.0) pg MCHC 32.5 (29.9-35.2) g/dL RDW 14.6 (11.0-15.0) % Plt Count 215 (150-450) 10^3/uL MPV 10.3 (9.5-13.5) fL Neut % (Auto) 55.5 (43.0-75.0) % Lymph % (Auto) 33.0 (20.5-60.0) % Holmes % (Auto) 6.9 (1.7-12.0) % Eos % (Auto) 3.6 (0.9-7.0) % Baso % (Auto) 0.7 (0.2-2.0) % Neut # (Auto) 3.8 (1.4-6.5) 10^3/uL Lymph # (Auto) 2.3 (1.2-3.8) 10^3/uL Holmes # (Auto) 0.5 (0.3-0.8) 10^3/uL Eos # (Auto) 0.3 (0.0-0.7) 10^3/uL Baso # (Auto) 0.1 (0.0-0.1) 10^3/uL Abs Immat Gran (auto) 0.02 (0.00-0.03) 10^3/uL Imm/Tot Granulo (auto) 0.3 (0.0-0.5) % Sodium 145 (136-145) mmol/L Potassium 3.4 L (3.5-5.1) mmol/L Chloride 109 H (98-107) mmol/L Carbon Dioxide 28.6 (21.0-32.0) mmol/L Anion Gap 10.8 BUN 14.0 (7.0-18.0) mg/dL Creatinine 1.02 (0.55-1.02) mg/dL Est GFR ( Amer) >60 (>=60 mL/min/1.73m^2) Est GFR (Non-Af Amer) 55 L (>=60 mL/min/1.73m^2) BUN/Creatinine Ratio 13.7 Glucose 134 H (74-106) mg/dL Calcium 8.3 L (8.5-10.1) mg/dL Total Bilirubin 0.3 (0.2-1.0) mg/dL AST 17 (15-37) U/L ALT 33 (14-59) U/L Alkaline Phosphatase 68 (46-116) U/L Troponin I High Sens 9.1 7.5 (4.0-51.3) pg/mL Total Protein 6.3 L (6.4-8.2) g/dL Albumin 3.4 (3.4-5.0) g/dL Globulin 2.9 g/dL Albumin/Globulin Ratio 1.2 ECG Data Attestation: I personally reviewed and interpreted this ECG as follows: (Sinus rhythm at 66 bpm, normal axis, normal intervals, no acute ST segment elevation or T wave inversion) Heart Score History: Slightly/Non-Suspicious ECG: Normal Age: >45-<65 years Risk Factors: >3 Risk Factors/ HX of CAD:2 Troponin: <Normal Limit Total Heart Score Recommendations & Risks:: 3 Discharge Plan Discharge Chief Complaint: Chest Pain Clinical Impression: Non-cardiac chest pain Patient Disposition: Home, Self-Care Time of Disposition Decision: 04:25 Condition: Good Prescriptions / Home Meds: No Action aspirin 81 mg capsule 81 mg PO DAILY rosuvastatin 40 mg tablet 40 mg PO DAILY quetiapine [Seroquel] 100 mg tablet 50 mg PO .QHS Rx Instructions: AT HS isosorbide mononitrate 60 mg Tablet Extended Release 24 Hr 30 mg PO DAILY lorazepam [Ativan] 1 mg tablet 1 mg PO Q8H Invokana 300 mg tablet 300 mg PO DAILY Qty: 30 11RF pantoprazole [Protonix] 40 mg tablet,delayed release (DR/EC) 40 mg PO BID Qty: 60 11RF magnesium oxide 400 mg (241.3 mg magnesium) tablet 400 mg PO .QD spironolactone 25 mg Tablet 12.5 mg PO QD Qty: 30 11RF carvedilol 25 mg Tablet 25 mg PO BID clopidogrel 75 mg tablet 75 mg PO DAILY Print Language: Tongan Instructions: Noncardiac Chest Pain (ED) Referrals: Carlito Murillo MD [Primary Care Provider, Family Practice] - 1 week
[2025-11-13 02:41] LABS: Hematocrit 34.8 % (36.0-48.0); Hemoglobin 11.3 g/dL (12.0-16.0); Immature Granulocytes Abs Auto 0.02 10^3/uL (0.00-0.03); Immature Granulocytes Pct Auto 0.3 % (0.0-0.5); Lymphocytes Absolute Auto 2.3 10^3/uL (1.2-3.8); Mean Corpuscular HGB Conc 32.5 g/dL (29.9-35.2); Mean Corpuscular Hemoglobin 27.7 pg (26.7-34.0); Mean Corpuscular Volume 85.3 fL (81.0-99.0); Platelet Count 215 10^3/uL (150-450); Red Blood Count 4.08 10^6/uL (4.20-5.40); White Blood Count 6.9 10^3/uL (4.0-11.0)
[2025-11-13 02:53] LABS: Alanine Aminotransferase 33 U/L (14-59); Albumin Globulin Ratio 1.2; Albumin Level 3.4 g/dL (3.4-5.0); Alkaline Phosphatase 68 U/L (46-116); Anion Gap 10.8; Aspartate Amino Transferase 17 U/L (15-37); Blood Urea Nitrogen 14.0 mg/dL (7.0-18.0); Calcium 8.3 mg/dL (8.5-10.1); Carbon Dioxide 28.6 mmol/L (21.0-32.0); Chloride 109 mmol/L (98-107); Estimated GFR (African America >60 (>=60 mL/min/1.73m^2); Estimated GFR (Non-African Ame 55 (>=60 mL/min/1.73m^2); Globulin 2.9 g/dL; Glucose 134 mg/dL (74-106); Potassium 3.4 mmol/L (3.5-5.1); Sodium 145 mmol/L (136-145); Total Protein 6.3 g/dL (6.4-8.2)
[2025-11-13] MEDS: ASPIRIN 81 MG TAB.CHEW 324 MG PO (02:59)
--- OUTSIDE RECORDS SUMMARY | 2025-11-13 03:10 | XMS_ITS | Clinical Summary ---
Author Organization [employer] [facility] Address [id number] [address] 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 Name Role Phone Carlito Murillo MD Primary Care Provider [phone] Allergies Active AllergyReactionsCriticalityNoted DateCommentsAlprazolamAbnormal Behavior 02/07/2025 sadness AmlodipineOther (See Comments)02/07/2025 Eye twitch PobvxnjgmrCmaft66/19/2025 Medications MedicationSigDispense QuantityRefillsLast FilledStart DateEnd DateStatus LORazepam (ATIVAN) 0.5 mg tablet Take 0.5 mg by mouth as needed.10/04/2017Active amitriptyline (ELAVIL) 100 mg tablet Take 100 mg by mouth nightly.Active citalopram (CeleXA) 20 mg tablet Take 20 mg by mouth daily.Active irbesartan (AVAPRO) 300 mg tablet Take 300 mg by mouth nightly.Active hydrOXYzine (ATARAX) 25 mg tablet Take 1 tablet (25 mg total) by mouth 3 (three) times a day as needed.Active aspirin 81 mg Take 1 tablet (81 mg total) by mouth in the morning.Active INVOKANA 100 mg tablet Take 1 tablet (100 mg total) by mouth in the morning.08/23/2024ctive carvediloL (COREG) 25 mg tablet Take 1 tablet (25 mg total) by mouth in the morning and 1 tablet (25 mg total) at noon and 1 tablet(25 mg total) in the evening. Take with meals.Active clopidogreL (PLAVIX) 75 mg tablet Take 1 tablet (75 mg total) by mouth in the morning.Active hydrALAZINE (APRESOLINE) 50 mg tablet Take 1 tablet (50 mg total) by mouth daily as needed (as neded).4Active isosorbide mononitrate (IMDUR) 60 mg 24 hr tablet Take 1 tablet (60 mg total) by mouth in the morning and at bedtime.Active metFORMIN (GLUCOPHAGE) 500 mg tablet Take 1 tablet (500 mg total) by mouth in the morning and 1 tablet (500 mg total) in the evening. Take with meals.Active pantoprazole (PROTONIX) 40 mg EC tablet Take 1 tablet (40 mg total) by mouth every morning before breakfast.Active QUEtiapine (SEROquel) 100 mg tablet Take 1 tablet (100 mg total) by mouth nightly.Active LORazepam (ATIVAN) 1 mg tablet Take 1 tablet (1 mg total) by mouth as needed in the morning and 1 tablet (1 mg total) as needed atnoon and 1 tablet (1 mg total) as needed in the evening for anxiety.4Active estradioL (ESTRACE) 0.01 % (0.1 mg/gram) vaginal cream Indications:Genitourinary syndrome of menopauseInsert 0.5 g into the vagina nightly for 14 days, THEN 0.5 g 2 (two) times a week for 360 days. 0.5grams vaginally each night for two weeks and then twice weekly (ex. Wednesday and ). In additional to vaginal use, apply pea size amount to fingertip and rub in vulva and vaginal introitus.. 42.5 g 6Active Additional Information Patient not taking.Reported on 09/10/2025 magnesium oxide (MAGOX) 400 mg tablet Take 1 tablet (400 mg total) by mouth in the morning.Active spironolactone (ALDACTONE) 25 mg tablet Take 1 tablet (25 mg total) by mouth in the morning.5Active INVOKANA 300 mg tablet Take 1 tablet (300 mg total) by mouth in the morning.5Active QUEtiapine (SEROquel) 25 mg tablet Take 1 tablet (25 mg total) by mouth nightly.5Active Active Problems ProblemNoted DateDiagnosed DateHTN (hypertension)10/18/2017TIA (transient ischemic attack)10/18/2017GERD (gastroesophageal reflux disease)10/18/2017BV (bacterial vaginosis)10/18/2017 Encounters DateTypeDepartmentCare OblyKavrzyiifww65/23/2025Results Follow-Up [facility] [address] [address] Cinthia Mcghee, DIONNE-ESDRAS Yeast Culture, Gram stain, Urinalysis, Urine Mgjrofu1509/10/2025 2:30 PM EDTOffice Visit [facility] [address] [place] [address] Cinthia Mcghee, DIONNE-ESDRAS Vaginal irritation (Primary Dx); Family history of breast cancer in mother; Family history of malignant neoplasm of breast in first degree relative 09/10/2025Telephone [facility] [address] [place] [address] Cinthia Mcghee, JUAREZ 09/10/2025Travelfrom Last 3 Months Family History Medical HistoryRelationNameCommentsBreast cancerMaternal AuntBreast cancerMother CancerMotherlungCancerSisterlungColon cancerNeg HxOvarian cancerNeg HxPancreatic cancerNeg HxUterine cancerNeg HxRelationNameStatusCommentsFatherDeceasedMaternal AuntDeceasedMotherDeceasedSisterDeceased Social History Tobacco UseTypesPacks/DayYears UsedDateSmoking Tobacco: VytsuiHkdwpiivza667 Smokeless Tobacco: Never Tobacco Cessation:Counseling Given: Not Answered Alcohol UseStandard Drinks/WeekCommentsNot Currently2 (1 standard drink = 0.6 oz pure alcohol)AUDIT-CAnswerDate RecordedQ1: How often do you have a drink containing alcohol?Monthly or less09/10/2025Q2: How many drinks containing alcohol do you have on a typical day when you are drinking?3 or Q3: How often do you have six or more drinks on one occasion?Less than monthly 09/10/2025hildcareAnswerDate RwrwqxvmGiqvexcfrSyhaglr29/12/2019EmploymentAnswer Date MhazzhgeIsntsbzehcLmbdoat25/12/2019Hunger ScreeningAnswerDate Recorded Within the past 12 months we worried whether our food would run out before we got money to buy more.Never True09/10/2025Within the past 12 months the food we bought just didn't last and we didn't have money to get more.Never True 09/10/2025Purpose - LifeAnswerDate RecordedPurpose and direction in lifeUnknown 1CommentsNoSex and Gender InformationValueDate RecordedSex Assigned at BirthNot on fileLegal BtbIkolkt93/06/2015 11:40 AM EDTGender IdentityNot on fileSexual OrientationNot on file Last Filed Vital Signs Vital SignReadingTime TakenCommentsBlood Wltxwokl489/6609/10/2025 2:47 PM EDT Uxrlk762302/07/2025 11:00 AM EDTTemperature--Respiratory Ajsy583702/07/2025 11:00 AM EDTOxygen Fgtrwkunfs94%02/07/2025 11:00 AM EDTInhaled Oxygen Concentration-- Cpxpfb25.5 kg (206 lb 3.2 oz)09/10/2025 2:47 PM VDFEdncmc248.6 cm (5' 4 ) 09/10/2025 2:47 PM EDTBody Mass Index35.391 2:47 PM EDT Plan of Treatment Health MaintenanceDue DateLast DoneCommentsStatin Use: Qxrgwosyguqkpg1964 Depression Rojavstbk60/29/1976DTaP,Tdap and Td Vaccines (1 - Tdap)1983 Zoster (Shingles) Vaccine (1 of 2)2014COVID-19 Vaccine (3 - season)/, 03/11/2021Influenza Yermtht51/, 10/25/2020, 10/30/2019, Additional history existsAdult BMI Follow Up Plan dult BMI Zpgvkymhh55Tobacco Screening RSV ( or age 60+ yrs) (1 - 1-dose 75+ series) 2039 Medical Devices Not on file Procedures Procedure NamePriorityDate/TimeAssociated DiagnosisCommentsURINALYSISRoutine 09/10/2025 3:47 PM EDT Vaginal irritation URINE BKPQEWMLpaunkg94/20/2025 3:47 PM EDT Vaginal irritation GRAM XNCSLDyvujyv11/20/2025 3:47 PM EDT Vaginal irritation YEAST FHWHJEMGvzixfy88/20/2025 3:47 PM EDT Vaginal irritation from Last 3 Months Results * (ABNORMAL) Urinalysis (09/10/2025 3:47 PM EDT)ComponentValueRef RangeTest MethodAnalysis TimePerformed AtPathologist SignatureCOLORYellowYellow 09/10/2025 6:21 PM [facility] LABORATORYTURBIDITYClearClear 09/10/2025 6:21 PM [facility] LABORATORYSPECIFIC GRAVITY1.010 1.003 - 1.0337509/10/2025 6:21 PM [facility] LABORATORYNITRITE XsdrswhaUkdcvhdh22/20/2025 6:21 PM [facility] PH,URINE6.05.0 - 8.510 6:21 PM [facility] LEUKOCYTE VGOMEGCUTafzwoojUctkrwty76/20/2025 6:21 PM [facility] ZMZYLOJRQNFVVBLXSGbktutfnGfkbqtlo18/20/2025 6:21 PM [facility] LABORATORYKETONES (URINE)EsqvtyqpUybdkbuf47/20/2025 6:21 PM [facility] LABORATORYUROBILINOGEN<1.1 eu/dL<1.1 eu/dL09/10/2025 6:21 PM [facility] LABORATORYBILIRUBIN (URINE)NegativeNegative 09/10/2025 6:21 PM [facility] LABORATORYBLOOD/HGBNegative Vtmulrug74/20/2025 6:21 PM [facility] LABORATORYGLUCOSE (URINE)500 mg/dL(A)Rdblmvwc73/20/2025 6:21 PM [facility] LABORATORYSpecimen (Source)Anatomical Location / LateralityCollection Method / VolumeCollection TimeReceived TimeUrineUrine specimen collection, clean catch / Ogfmgsc6809/10/2025 3:47 PM EDT1 3:47 PM EDT Narrative [facility] - 09/10/2025 6:21 PM EDT Urine received without preservative. Delays in transport may affect results. Interpret with caution. A clinical correlation is recommended. Authorizing ProviderResult TypeResult StatusCinthia GERMANCNMURINE ORDERABLESFinal ResultPerforming OrganizationAddressCity/State/ZIP CodePhone Number [facility] [address] [place] [address], * Gram stain (09/10/2025 3:47 PM EDT)ComponentValueRef RangeTest MethodAnalysis TimePerformed AtPathologist SignatureGRAM STAINNegative for Bacterial Vaginosis (Based on Wallace scoring, validated for vaginal specimens)09/11/2025 7:47 AM [facility] LABORATORYGRAM STAINNo yeast seen 09/11/2025 7:47 AM [facility] LABORATORYGRAM STAINThis method has only been evaluated for women of childbearing age and postmenopausal women on estrogen replacement therapy.09/11/2025 7:47 AM [facility] LABORATORYSpecimen (Source)Anatomical Location / LateralityCollection Method / VolumeCollection TimeReceived TimeSwabVaginal structure / Cfwhnsd2209/10/2025 3:47 PM EDT1 3:47 PM EDT Narrative Authorizing ProviderResult TypeResult Mono Mcghee APRN-CNMMICROBIOLOGY - GENERAL ORDERABLESFinal ResultPerforming OrganizationAddressCity/State/ZIP CodePhone Number [facility] [address] [place] [address], * Yeast Culture (09/10/2025 3:47 PM EDT)ComponentValueRef RangeTest Method Analysis TimePerformed AtPathologist SignatureCULTURE RESULTSNo yeast isolated at 5 days09/17/2025 7:37 AM [facility] LABORATORYFUNGAL SMEAR No fungal elements seen09/17/2025 7:37 AM [facility] LABORATORYFUNGAL SMEAROn Direct Smear09/17/2025 7:37 AM [facility] LABORATORYSpecimen (Source)Anatomical Location / LateralityCollection Method / VolumeCollection TimeReceived TimeSwabVaginal structure / Unknown 09/10/2025 3:47 PM EDT1 3:47 PM EDT Narrative Authorizing ProviderResult TypeResult StatusCinthia Jina Litzy TRUONG-CNMMICROBIOLOGY - GENERAL ORDERABLESFinal ResultPerforming OrganizationAddressCity/State/ZIP CodePhone Number [facility] [address] [place] [address], [place] [phone] * Urine Culture (09/10/2025 3:47 PM EDT)ComponentValueRef RangeTest Method Analysis TimePerformed AtPathologist SignatureCULTURE UDXWDEJ83-33,000 ORGANISMS/mL NORMAL UROGENITAL FLORA09/11/2025 12:55 PM [facility] LABORATORYSpecimen (Source)Anatomical Location / LateralityCollection Method / VolumeCollection TimeReceived TimeUrineUrine specimen collection, clean catch / Limlesh6309/10/2025 3:47 PM EDT1 3:47 PM EDT Narrative Authorizing ProviderResult TypeResult Mono De Santiagokeysha TRUONG-CNMMICROBIOLOGY - GENERAL ORDERABLESFinal ResultPerforming OrganizationAddressCity/State/ZIP CodePhone Number [facility] [address] [place] [address], [place] [phone] from Last 3 Months Insurance [address] [place] [address] Care Teams Team MemberRelationshipSpecialtyStart DateEnd Carlito Murillo MD [facility] - [facility]
--- OUTSIDE RECORDS SUMMARY | 2025-11-13 03:10 | XMS_ITS | Clinical Summary ---
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 30 tablet 07/01/2024ctive Invokana 100 mg Take 300 mg by [...] by mouth in the morning. 30 tablet 11006/08/5925996Active clopidogrel (Plavix) 75 mg tablet Indications:NSTEMI (non-ST elevated myocardial infarction) (CMS/HCC),Chest pain Take 1 tablet (75 mg) by mouth in the morning. 30 tablet 11006/08/8857716Active carvedilol (Coreg) 12.5 mg tablet Indications:Primary hypertensionTake 2 tablets (25 mg) by mouth two times daily for 197 doses. 120 tablet 5Active isosorbide mononitrate ER (Imdur) 30 mg 24 hr tablet Indications:Coronary artery disease involving igiugig coronary artery of igiugig heart without angina pectorisTake 1 tablet (30 mg) by mouth in the morning. Do not crush or chew. 90 tablet 6Active spironolactone (Aldactone) 25 mg tablet Indications:Benign hypertensive heart disease with heart failure (CMS/HCC)Take 1 tablet (25 mg) by mouth in the morning. 90 tablet 6Active Active Problems ProblemNoted DateDiagnosed DateAbnormal magnetic resonance imaging study 06/25/2025quired /04/2025ute non-ST segment elevation myocardial /04/2025llergic nzirgegohelooy72/04/2025arotid artery orveibfi37/04/2025ellulitis and abscess of face06/25/2025OVID-19006/25/2025 Derangement of knee06/25/20250914Jbwlcibw93/04/9604Jpckf50/04/2025Former tobacco use 06/25/20255590Otoicwuwida79/04/2025Inflamed seborrheic tpbkumchs16/04/2025Insomnia 06/25/2025Kidney stone06/25/2025Left ventricular /04/2025Mass of left adrenal gland06/25/20254575Qjmnkilm44/04/2025Obstructive sleep apnea06/25/2025 Paresthesia of upper limb06/25/2025Pulmonary ewmekn1006/25/2025Skin sensation nscbsbbggto73/04/5101Svbuka13/04/2025bnormal stress ECG06/06/2025Secondary tvlrmgfiqawg48/18/2025 Assessment & Plan (06/07/2025 5:23 PM EDT): Optimize antihypertensives CODE STATUS full code Assessment & Plan (06/07/2025 4:13 AM EDT): Optimize antihypertensives CODE STATUS full code Adenoma of left adrenal gland01/09/2025Resistant ifkcpsmqbbph54/14/2024rimary znhzygbadwudn84/12/2024 Assessment & Plan (06/07/2025 5:23 PM EDT): - Continue Aldactone - December of this year: Cortisol: 3.6 and Aldosterone: 7.3 Assessment & Plan (06/07/2025 4:13 AM EDT): As above Depression, major, severe /14/2024anic hntklkyr16/14/2024 Fircblckjum39/20/2024oronary artery disease involving igiugig coronary artery of igiugig heart without angina yioegerk73/20/5534Vkjnxnk37/09/2024Type 2 diabetes mellitus without complication, without long-term current use of insulin 06/30/2024 Assessment & Plan (06/07/2025 5:23 PM EDT): - Continue BG checks - Continue SSI while hospitalized - Continue Farxiga - Consider obtaining A1c Assessment & Plan (06/07/2025 4:13 AM EDT): Insulin Farxiga blood sugar Chest pain06/30/2024Elevated qkqoexri92/09/5456Eloayrsmsjvqrz07/09/2024NSTEMI (non-ST elevated myocardial infarction)06/29/2024 Assessment & Plan [...] cardiology to see patient QURESHI (dyspnea on exertion)05/26/20247909Epsejugxupsnft45/05/2024Murmur, heart 05/26/20247305Gpwnkl32/23/2019BV (bacterial vaginosis)10/18/2017Gastroesophageal reflux disease without rtwkxxjfagl17/27/2017 Assessment & Plan (06/07/2025 5:23 PM EDT): - Continue protonix Assessment & Plan (06/07/2025 4:13 AM EDT): PPI Essential lguzrootkmsy42/27/2017TIA (transient ischemic attack)10/18/2017 Resolved Problems ProblemNoted DateDiagnosed DateResolved DateHypertensive xsuawnt0606/30/2024 07/11/2024therosclerosis of igiugig coronary artery of igiugig heart without angina Encounters DateTypeDepartmentCare KeduWvwquxnkwhk64/12/2025Telephone [address] [address] Caitlyn Jose MA 09/18/2025 10:45 AM EDTFollow-Up [facility] [address] [place] [address] Richa Grace MD Lung nodule (Primary Dx); Cigarette ivazgc1109/14/2025Orders Only [address] [address] Caitlyn Jose MA Benign hypertensive heart disease without congestive heart failure (Primary Dx) 09/13/2025 3:48 PM EDT - 09/13/2025 11:59 PM EDTHospital Encounter [facility] [address] [place] [address] Lung nodule; Cigarette smoker Discharge Disposition: Home or Self Care (01)09/11/2025Telephone [facility] [address] [place] [address] Caitlyn Jose MA 09/06/2025Telephone [facility] [address] [place] [address] Cathie Harden MA from Last 3 Months Family History Medical HistoryRelationNameCommentsAccidental deathFatherLung cancerMotherLung cancerSisterRelationNameStatusCommentsBrotherAliveFatherDeceasedMotherDeceased SisterDeceased Social History Tobacco UseTypesPacks/DayYears UsedDateSmoking Tobacco: AkyqbzLcfmzvdozo1135686 - mokeless Tobacco: Never Tobacco Cessation:Counseling Given: Not Answered Alcohol UseStandard Drinks/WeekCommentsNot Currently0 (1 standard drink = 0.6 oz pure alcohol)Used to drink a lot on the weekendAHC UtilitiesAnswerDate Recorded In the past 12 months has the [employer], gas, oil, or water [employer] threatened to shut off services in your home?06/07/2025Humiliation, Afraid, Rape, and Kick questionnaireAnswerDate RecordedWithin the [...] friends or relatives?More than three times a week08/20/2024How often do you attend temple or samaritan services?Never07/11/2024o you belong to any clubs or organizations such as temple groups, unions, fraternal or athletic groups, or school groups?No 07/11/2024How often do you attend meetings of the clubs or organizations you belong to?Never07/11/2024re you , , , , never , or living with a partner?Poondeu6907/11/2024UDIT-CAnswerDate RecordedQ1: How often do you have a [...] hard at all06/07/2025PHQ-2AnswerDate Recorded Patient Health Questionnaire-2 Fqibi496[facility] [place] [facility] - Occupational Stress QuestionnaireAnswerDate RecordedDo you feel stress - tense, restless, nervous, or anxious, or unable to sleep at night because your mind is troubled all the time - these days?Only a jbmbtp1907/11/2024Transportation AnswerDate RecordedIn the past 12 months, has [...] you homeless or living in a senior care (including now)?Yes 06/07/2025Hunger Vital SignAnswerDate RecordedWithin the past 12 months, you worried that your food would run out before you got the money to buymore.Never true06/07/2025Ran Out of Food in the Last YearNot on file06/07/2025 CommentsNoSex and Gender InformationValueDate RecordedSex Assigned at Qetkpz7506/22/2025 1:49 PM EDTLegal WosXvqljw58/29/2022 10:42 PM EDTGender MlmnhcniCykbnc42/01/2025 1:49 PM EDTSexual OrientationHeterosexual or Straight 06/22/2025 1:49 PM EDT Last Filed Vital Signs Vital SignReadingTime TakenCommentsBlood Batgnpoe289/7209/18/2025 10:41 AM EDT Uykzb932309/18/2025 10:41 AM RBVFdbbdftxknu43.6 ??C (97.8 ??F)09/18/2025 10:41 AM EDTRespiratory Wgsq135706/08/2025 12:00 PM EDTOxygen Tcngqecczy76%09/18/2025 10:41 AM EDTInhaled Oxygen Concentration--Lfdzar95 kg (207 lb 3.2 oz)09/18/2025 10:41 AM XVCBvapad665 cm (5' 3 )09/18/2025 10:41 AM EDTBody Mass Index36. 10:41 AM EDT Plan of Treatment Health MaintenanceDue DateLast DoneCommentsCT Xnawdxhzznrc1964Colonoscopy 1964Colorectal Cancer Hcgltpkkw1964Diabetes: Hemoglobin A1C 1964FIT-DNA1964FIT1964FOBT1964 1878Plovmedbahoyx1964 Diabetes: Retinopathy Lmvseutrl72/29/1974Diabetes: Urine Protein Screening 1983Pneumococcal Vaccine: Pediatrics (0 to 5 Years) and At-Risk Patients (6 to 64 Years) (1 of 2 - PCV)1983Pap Smear1985Adult Tetanus 1986Cervical Cancer Wkzlrvrib96/29/1994HPV/Glvdnd5106/19/1994Mammogram 2004Zoster Vaccines (1 of 2)2014COVID-19 Vaccine (3 - season)/, 03/11/2021Influenza Vaccine (#1)2025 11/07/2021, 10/25/2020, 09/20/2017Depression Vdbtkkvse51HIB VaccinesAged OutNo longer eligible based on patient's [...] ImplantedTypeAreaManufacturerDevice IdentifierShelf Expiration DateModel / Serial / LotStent,Synergy Mr 2.75 X 20 - [id number] - [id number] Implanted:Qty: 1 on 06/30/2024 by [facility] El[facility] Stent[place] [id number]/ [id number] / [id number] / [id number],Synergy Rosendo,Mitchel 4.0x12m - [id number] Implanted:Qty: 1 on 06/07/2025 by [facility] Cotto [facility]: Heart[place] [id number]/ [id number] / / [id number] Procedures Procedure NamePriorityDate/TimeAssociated DiagnosisCommentsLDCT LUNG SCREENING Gtuycjn7409/13/2025 4:00 PM EDT Lung nodule Cigarette smoker [...] Armando Garcia. Authorizing ProviderResult TypeResult StatusMohamed Lesly BUCKNERIMG CT PROCEDURES Final Result from Last 3 Months Insurance Advance Directives * Full Code (Latest Code Status on File) Date ActivatedDate InactivatedComments06/07/2025 4:00 AM06/08/2025 5:04 PM * Full Code Date ActivatedDate InactivatedComments07/11/2024 12:18 PM07/12/2024 1:06 PM * Full Code Date ActivatedDate InactivatedComments06/30/2024 1:12 AM07/01/2024 2:41 PM Care Teams Team MemberRelationshipSpecialtyStart DateEnd Date Carlito Murillo MD [address] [facility] [address] [facility] - Tpiaqkl05/24/24
--- OUTSIDE RECORDS SUMMARY | 2025-11-13 03:10 | XMS_ITS | Patient Health Record ---
Author Organization [facility] in [place] Address [address] [place] [address] Care Team Providers Care Director Career Services Name Role Phone Amadou Murillo Primary Care Provider [phone] Omar Mares Unavailable [phone] Allergies Allergen (clinical drug ingredient) Drug/Non Drug Allergy documented on EMR Reaction Allergy Type Onset Date Status amlodipine Norvasc visual changes Drug Allergy ActivealprazolamXanaxmental status changesDrug AllergyActivelisinoprilLisinopril UnknownDrug AllergyActive Results Component Value Reference Range Notes MAGNESIUM Reviewed date:03/30/2025 01:10:37 PM Interpretation: Performing Lab: Notes/Report: [facility] , Magnesium 1.2 1.8-2.4 mg/dL Performing Lab:see noteML - [facility] LBCBC AUTO DIFF Reviewed date:11/13/2024 08:37:17 PM Interpretation: Performing Lab: Notes/Report: [facility] ,White Blood Count4.74.0-11.0 10 3/uLRed Blood Count4.154.20-5.40 10 6/uL Hzgcelpyuq77.812.0-16.0 g/xXAlhpvflsgs86.036.0-48.0 %Mean Corpuscular Gqydhj57.3 81.0-99.0 fLMean Corpuscular Efhdxangph12.026.7-34.0 pgMean Corpuscular HGB Conc 30.929.9-35.2 g/dLRed Cell Distribution Width15.711.0-15.0 %Platelet Kjqqk179 150-450 10 3/uLMean Platelet Volume9.79.5-13.5 fLNeutrophils Percent Auto46.9 43.0-75.0 %Lymphocytes Percent Auto38.920.5-60.0 %Monocytes Percent Auto9.31.7- 12.0 %Eosinophils Percent Auto3.80.9-7.0 %Basophils Percent Auto1.10.2-2.0 % Immature Granulocytes Pct Auto0.00.0-0.5 %Neutrophils Absolute Auto2.21.4-6.5 10 3/uLLymphocytes Absolute Auto1.81.2-3.8 10 3/uLMonocytes Absolute Auto0.40.3-0.8 10 3/uLEosinophils Absolute Auto0.20.0-0.7 10 3/uLBasophils Absolute Auto0.10.0- 0.1 10 3/uLImmature Granulocytes Abs Auto0.000.00-0.03 10 3/uLPerforming Lab:see noteML - [facility] LBPROF CHEM 8 (BAS METB) Reviewed date:11/13/2024 08:37:17 PM Interpretation: Performing Lab: Notes/Report: [facility] ,Iyijby661870-416 mmol/LPotassium3.63.5-5.1 mmol/BFnihjjfj08978-552 mmol/LCarbon Vgkhimr89.821.0-32.0 mmol/LAnion Gap12.3Mvazyfw95175-779 mg/dLBlood Urea Scyazhjz58.07.0-18.0 mg/dLCreatinine1.200.55-1.02 mg/dLEstimated GFR ( Fmsstee85>=60 mL/min/1.73m 2Estimated GFR (Non- Ame46>=60 mL/min/1.73m 2 BUN Creatinine Ratio15.5Nuidgga0.88.5-10.1 mg/dLPerforming Lab:see noteML - [facility] LBTroponin I High Sensitivity Reviewed date:11/13/2024 08:37:17 PM Interpretation: Performing Lab: Notes/Report: [facility] ,Troponin I High Ihqkoufyigr73.84.0-51.3 pg/mL CUT-OFF POINTS HAVE BEEN ESTABLISHED BASED ON THE FOURTH UNIVERSAL DEFINITION OF MYOCARDIAL INFARCTION. THE UPPER REFERENCE LIMIT (URL) OF TROPONIN, DEFINED THE 99TH PERCENTILE OF cTnI DISTRIBUTION IN A REFERENCE POPULATION, HAS BEEN CONFIRMED THE DECISION THRESHOLD FOR MD DIAGNOSIS. 99TH PERCENTILE = 51.4 PG/ML NOTE: HIGH-SENSITIVITY TROPONIN ASSAY IS NOT INTENDED TO BE USED IN ISOLATION BUT SHOULD BE INTERPRETED IN CONJUNCTION WITH OTHER DIAGNOSTIC AND CLINICAL INFORMATION. Performing Lab:see noteML - [facility] LBBNP Reviewed date:11/16/2024 06:07:28 PM Interpretation: Performing Lab: Notes/Report: [facility] ,NT Pro B Type Natriuretic Rzqr270.0<=900.0 pg/mLPerforming Lab:see noteML - [facility] LBCBC AUTO DIFF Reviewed date:11/16/2024 06:07:28 PM Interpretation: Performing Lab: Notes/Report: [facility] ,White Blood Count6.74.0-11.0 10 3/uLRed Blood Count4.764.20-5.40 10 6/uL Knxeeyndqb93.412.0-16.0 g/mBCdhhrhrgam27.636.0-48.0 %Mean Corpuscular Ggfjfl96.2 81.0-99.0 fLMean Corpuscular Xqrkmfhpkd09.126.7-34.0 pgMean Corpuscular HGB Conc 31.329.9-35.2 g/dLRed Cell Distribution Width15.311.0-15.0 %Platelet Ywywh338 150-450 10 3/uLMean Platelet Bmjwak74.19.5-13.5 fLNeutrophils Percent Auto51.6 43.0-75.0 %Lymphocytes Percent Auto35.620.5-60.0 %Monocytes Percent Auto7.51.7- 12.0 %Eosinophils Percent Auto4.20.9-7.0 %Basophils Percent Auto0.90.2-2.0 % Immature Granulocytes Pct Auto0.20.0-0.5 %Neutrophils Absolute Auto3.41.4-6.5 10 3/uLLymphocytes Absolute Auto2.41.2-3.8 10 3/uLMonocytes Absolute Auto0.50.3-0.8 10 3/uLEosinophils Absolute Auto0.30.0-0.7 10 3/uLBasophils Absolute Auto0.10.0- 0.1 10 3/uLImmature Granulocytes Abs Auto0.010.00-0.03 10 3/uLPerforming Lab:see noteML - [facility] LBPROF 14(COMP METB) Reviewed date:11/16/2024 06:07:28 PM Interpretation: Performing Lab: Notes/Report: [facility] ,Vhxajg577655-189 mmol/LPotassium3.63.5-5.1 mmol/EOgnoxhok57114-518 mmol/LCarbon Vspfwtu03.121.0-32.0 mmol/LAnion Gap13.3Gfilyhx51965-999 mg/dLBlood Urea Uubtollu67.07.0-18.0 mg/dLCreatinine1.140.55-1.02 mg/dLEstimated GFR ( Ixndooz62>=60 mL/min/1.73m 2Estimated GFR (Non- Ame49>=60 mL/min/1.73m 2 BUN Creatinine Ratio14.2Zrrdhfq5.98.5-10.1 mg/dLBilirubin Total0.30.2-1.0 mg/dL Aspartate Amino Nzrzimxtjxb2602-36 U/LAlanine Hfizhngjfaposjyd5836-45 U/L Alkaline Qjtatxnhrmb1539-022 U/LTotal Protein7.26.4-8.2 g/dLAlbumin Level3.83.4- 5.0 g/dLGlobulin3.4Albumin Globulin Ratio1.1Performing Lab:see noteML - [facility] LBTroponin I High Sensitivity Reviewed date:11/16/2024 06:07:28 PM Interpretation: Performing Lab: Notes/Report: [facility] ,Troponin I High Sensitivity8.44.0-51.3 pg/mL 99TH PERCENTILE [...] CONFIRMED THE DECISION THRESHOLD FOR MD DIAGNOSIS. Performing Lab:see noteML - [facility] LBECG 12 lead Reviewed date:11/18/2024 09:02:39 PM Interpretation: Performing Lab: Notes/Report: Source Facility: [place] [address] [place] [address] Electrocardiograph Report Signed Patient: ABY MADRIGAL MR#: [id number] : 1965 Acct:[id number] Age/Sex: 59 / F ADM Date: 11/15/24 Loc: ER Attending Dr: Ordering Physician: Cheko Hoskins D.O. 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 Signed By: <Electronically signed by Kendra Murillo M.D.> 11/17/24 0653 DD/ TD/TT: Loan Review Officer:XR chest 1V Reviewed date:11/16/2024 06:07:28 PM Interpretation: Performing Lab: Notes/Report: Source Facility: [place] [address] [place] [address] XRay Report Signed Patient: ABY MADRIGAL MR#: [id number] : 1965 Acct:[id number] Age/Sex: 59 / F ADM Date: 11/15/24 Loc: ER Attending Dr: Ordering Physician: Cheko Hoskins D.O. Date of Service: 11/15/24 Procedure(s): XR chest 1V Accession Number(s): [id number] cc: Cheko Hoskins D.O.; Kendra Murillo M.D. [facility] [place] [address] Patient Name: ABY MADRIGAL MRN: [id number] date: 1965 Sex: F Assigned Patient Location: ER Current Patient Location: ER Accession/Order Number: [id number] Exam Date: 11/15/2024 22:18 Report Date: 11/15/2024 22:54 At the request of: CHEKO HOSKINS Procedure: XR chest 1V SINGLE VIEW [...] D.O. Signed By: 11/15/242255 DD/ 53 TD/TT: Loan Review Officer:BNP Reviewed date:11/26/2024 08:40:04 PM Interpretation: Performing Lab: Notes/Report: [facility] ,NT Pro B Type Natriuretic Gmtd739.0<=900.0 pg/mLPerforming Lab:see noteML - [facility] LBCBC AUTO DIFF Reviewed date:11/26/2024 08:40:04 PM Interpretation: Performing Lab: Notes/Report: [facility] ,White Blood Count6.24.0-11.0 10 3/uLRed Blood Count4.644.20-5.40 10 6/uL Leqfuwnlxa65.912.0-16.0 g/tCVqwbccdcmi13.336.0-48.0 %Mean Corpuscular Dkiqba49.5 81.0-99.0 fLMean Corpuscular Gdbvnrkdpc90.626.7-34.0 pgMean Corpuscular HGB Conc 31.129.9-35.2 g/dLRed Cell Distribution Width15.811.0-15.0 %Platelet Jvbex601 150-450 10 3/uLMean Platelet Volume9.79.5-13.5 fLNeutrophils Percent Auto68.2 43.0-75.0 %Lymphocytes Percent Auto21.120.5-60.0 %Monocytes Percent Auto6.61.7- 12.0 %Eosinophils Percent Auto3.20.9-7.0 %Basophils Percent Auto0.60.2-2.0 % Immature Granulocytes Pct Auto0.30.0-0.5 %Neutrophils Absolute Auto4.21.4-6.5 10 3/uLLymphocytes Absolute Auto1.31.2-3.8 10 3/uLMonocytes Absolute Auto0.40.3-0.8 10 3/uLEosinophils Absolute Auto0.20.0-0.7 10 3/uLBasophils Absolute Auto0.00.0- 0.1 10 3/uLImmature Granulocytes Abs Auto0.020.00-0.03 10 3/uLPerforming Lab:see noteML - [facility] LBMAGNESIUM Reviewed date:11/26/2024 08:40:04 PM Interpretation: Performing Lab: Notes/Report: [facility] ,Magnesium2.11.8-2.4 mg/dLPerforming Lab:see noteML - [facility] LB PROF CHEM 8 (BAS METB) Reviewed date:11/26/2024 08:40:04 PM Interpretation: Performing Lab: Notes/Report: [facility] ,Aydrtc799833-997 mmol/LPotassium3.73.5-5.1 mmol/FUahhxpiq80881-220 mmol/LCarbon Qydqolx10.021.0-32.0 mmol/LAnion Gap15.9Ctwxzsy33767-813 mg/dLBlood Urea Wirpkxjr46.07.0-18.0 mg/dLCreatinine1.040.55-1.02 mg/dLEstimated GFR ( Candace>60>=60 mL/min/1.73m 2Estimated GFR (Non- Ame54>=60 mL/min/1.73m 2 BUN Creatinine Ratio14.2Jhdkupc9.68.5-10.1 mg/dLPerforming Lab:see noteML - [facility] LBTroponin I High Sensitivity Reviewed date:11/26/2024 08:40:04 PM Interpretation: Performing Lab: Notes/Report: [facility] ,Troponin I High Sensitivity6.24.0-51.3 pg/mL CUT-OFF POINTS HAVE BEEN ESTABLISHED BASED ON THE FOURTH UNIVERSAL DEFINITION OF MYOCARDIAL INFARCTION. THE UPPER REFERENCE LIMIT (URL) OF TROPONIN, DEFINED THE 99TH PERCENTILE OF cTnI DISTRIBUTION IN A REFERENCE POPULATION, HAS BEEN CONFIRMED THE DECISION THRESHOLD FOR MD DIAGNOSIS. 99TH PERCENTILE = 51.4 PG/ML NOTE: HIGH-SENSITIVITY TROPONIN ASSAY IS NOT INTENDED TO BE USED IN ISOLATION BUT SHOULD BE INTERPRETED IN CONJUNCTION WITH OTHER DIAGNOSTIC AND CLINICAL INFORMATION. Performing Lab:see note - [facility] LBECG 12 lead Reviewed date:11/27/2024 08:32:57 PM Interpretation: Performing Lab: Notes/Report: Source Facility: [facility]-[address] [place] [address] [place] [address] Electrocardiograph Report Signed Patient: ABY MADRIGAL MR#: [id number] : 1965 Acct:[id number] Age/Sex: 59 / F ADM Date: 11/25/24 Loc: ER Attending Dr: Ordering Physician: Cheko Hoskins D.O. 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 Signed By: 11/27/242023 DD/ 1015 TD/TT: Loan Review Officer:XR chest 1V Reviewed date:11/26/2024 08:40:04 PM Interpretation: Performing Lab: Notes/Report: Source Facility: [place] [address] XRay Report Signed Patient: ABY MADRIGAL MR#: [id number] : 1965 Acct:[id number] Age/Sex: 59 / F ADM Date: 11/25/24 Loc: ER Attending Dr: Ordering Physician: Cheko Hoskins D.O. Date of Service: 11/25/24 Procedure(s): XR chest 1V Accession Number(s): [id number] cc: Cheko Hoskins D.O.; Kendra Murillo M.D. [place] [address] Patient Name: ABY MADRIGAL MRN: [id number] date: 1965 Sex: F Assigned Patient Location: ER Current Patient Location: ER Accession/Order Number: [id number] Exam Date: 11/25/2024 10:52 Report Date: 11/25/2024 11:27 At the request of: CHEKO HOSKINS Procedure: XR chest 1V EXAM: XR [...] Signed By: 11/25/24 1130 DD/ 1127 TD/TT: Loan Review Officer:ITP Reviewed date:12/07/2024 01:55:15 PM Interpretation: Performing Lab: Notes/Report: Source Facility: [place] [address] [place] [address] Cardiac Rehab Report Signed Patient: ABY MADRIGAL MR#: [id number] : 1965 Acct:[id number] Age/Sex: 59 / F ADM Date: 12/06/24 Loc: CR Attending Dr: GOMEZ JAY Ordering Physician: Aguilar Mac D.O. 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 Signed By: 12/06/242053 DD/ 0939 TD/TT: Loan Review Officer:BNP Reviewed date:01/31/2025 06:41:07 PM Interpretation: Performing Lab: Notes/Report: [facility] ,NT Pro B Type Natriuretic Mcmq620.0<=900.0 pg/mLPerforming Lab:see noteML - [facility] LBCBC AUTO DIFF Reviewed date:01/31/2025 06:41:07 PM Interpretation: Performing Lab: Notes/Report: [facility] ,White Blood Count6.54.0-11.0 10 3/uLRed Blood Count4.584.20-5.40 10 6/uL Ffvaumrmne54.912.0-16.0 g/zNEozclzvvdh39.836.0-48.0 %Mean Corpuscular Seszkh51.5 81.0-99.0 fLMean Corpuscular Ritufflilu00.026.7-34.0 pgMean Corpuscular HGB Conc 31.529.9-35.2 g/dLRed Cell Distribution Width15.611.0-15.0 %Platelet Atnll203 150-450 10 3/uLMean Platelet Volume9.99.5-13.5 fLNeutrophils Percent Auto52.6 43.0-75.0 %Lymphocytes Percent Auto37.220.5-60.0 %Monocytes Percent Auto6.61.7- 12.0 %Eosinophils Percent Auto2.60.9-7.0 %Basophils Percent Auto0.80.2-2.0 % Immature Granulocytes Pct Auto0.20.0-0.5 %Neutrophils Absolute Auto3.41.4-6.5 10 3/uLLymphocytes Absolute Auto2.41.2-3.8 10 3/uLMonocytes Absolute Auto0.40.3-0.8 10 3/uLEosinophils Absolute Auto0.20.0-0.7 10 3/uLBasophils Absolute Auto0.10.0- 0.1 10 3/uLImmature Granulocytes Abs Auto0.010.00-0.03 10 3/uLPerforming Lab:see noteML - [facility] LBLIPASE Reviewed date:01/31/2025 06:41:07 PM Interpretation: Performing Lab: Notes/Report: [facility] ,Jvyyje74.016.0-77.0 U/LPerforming Lab:see noteML - [facility] LBPROF 14(COMP METB) Reviewed date:01/31/2025 06:41:08 PM Interpretation: Performing Lab: Notes/Report: [facility] ,Iutikl660644-426 mmol/LPotassium3.53.5-5.1 mmol/AEyhzktfh02032-475 mmol/LCarbon Omhciws83.621.0-32.0 mmol/LAnion Gap13.9Stzwlbg86523-298 mg/dLBlood Urea Ifgkqzrn65.07.0-18.0 mg/dLCreatinine1.520.55-1.02 mg/dLEstimated GFR ( Npxwevt83>=60 mL/min/1.73m 2Estimated GFR (Non- Ame35>=60 mL/min/1.73m 2 BUN Creatinine Ratio19.8Etopzmd3.28.5-10.1 mg/dLBilirubin Total0.30.2-1.0 mg/dL Aspartate Amino Joybgynkyez8953-27 U/LAlanine Wvuifhgrssaolfnq9695-61 U/L Alkaline Cetvxgxtboj8193-261 U/LTotal Protein6.96.4-8.2 g/dLAlbumin Level3.53.4- 5.0 g/dLGlobulin3.4Albumin Globulin Ratio1.0Performing Lab:see noteML - [facility] LBTroponin I High Sensitivity Reviewed date:01/31/2025 06:41:08 PM Interpretation: Performing Lab: Notes/Report: [facility] ,Troponin I High Sensitivity9.34.0-51.3 pg/mL CUT-OFF POINTS HAVE BEEN ESTABLISHED BASED ON THE FOURTH UNIVERSAL DEFINITION OF MYOCARDIAL INFARCTION. THE UPPER REFERENCE LIMIT (URL) OF TROPONIN, DEFINED THE 99TH PERCENTILE OF cTnI DISTRIBUTION IN A REFERENCE POPULATION, HAS BEEN CONFIRMED THE DECISION THRESHOLD FOR MD DIAGNOSIS. 99TH PERCENTILE = 51.4 PG/ML NOTE: HIGH-SENSITIVITY TROPONIN ASSAY IS NOT INTENDED TO BE USED IN ISOLATION BUT SHOULD BE INTERPRETED IN CONJUNCTION WITH OTHER DIAGNOSTIC AND CLINICAL INFORMATION. Performing Lab:see noteML - [facility] LBECG 12 lead Reviewed date:01/31/2025 06:41:08 PM Interpretation: Performing Lab: Notes/Report: Source Facility: [facility]-[address] [place] [address] [place] [address] Electrocardiograph Report Signed Patient: ABY MADRIGAL MR#: [id number] : 1965 Acct:[id number] Age/Sex: 59 / F ADM Date: 01/31/25 Loc: ER Attending Dr: Ordering Physician: Kyung Jones D.O. 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 Measurements Intervals [place] Rate: 69 P: 63 AK: 178 QRS: 47 QRSD: 90 T: 150 QT: 382 QTc: 402 Interpretive Statements [address] Sinus rhythm [address] depression 4564 Twave abnormality, possible lateral ischemia 9150 abnormal ECG Compared to ECG 11/25/2024 10:15:08 No significant changes Electronically Signed On 01-31-2025 9:30:00 EDT by GOMEZ JAY M.D. Dictated By: GOMEZ JAY Signed By: 01/31/25 0930 DD/ 0027 TD/TT: Loan Review Officer:Troponin I High Sensitivity Reviewed date:01/31/2025 06:41:07 PM Interpretation: Performing Lab: Notes/Report: [facility] ,Troponin I High Sensitivity8.94.0-51.3 pg/mL CUT-OFF POINTS HAVE BEEN ESTABLISHED BASED ON THE FOURTH UNIVERSAL DEFINITION OF MYOCARDIAL INFARCTION. THE UPPER REFERENCE LIMIT (URL) OF TROPONIN, DEFINED THE 99TH PERCENTILE OF cTnI DISTRIBUTION IN A REFERENCE POPULATION, HAS BEEN CONFIRMED THE DECISION THRESHOLD FOR MD DIAGNOSIS. 99TH PERCENTILE = 51.4 PG/ML NOTE: HIGH-SENSITIVITY TROPONIN ASSAY IS NOT INTENDED TO BE USED IN ISOLATION BUT SHOULD BE INTERPRETED IN CONJUNCTION WITH OTHER DIAGNOSTIC AND CLINICAL INFORMATION. Performing Lab:see noteML - [facility] LBCBC AUTO DIFF Reviewed date:03/26/2025 08:13:17 PM Interpretation: Performing Lab: Notes/Report: [facility] ,White Blood Count7.34.0-11.0 10 3/uLRed Blood Count4.554.20-5.40 10 6/uL Tcfqmwiuxq54.912.0-16.0 g/aIPwdcwvfjwd01.936.0-48.0 %Mean Corpuscular Zxpyvn14.1 81.0-99.0 fLMean Corpuscular Eestbfnqsa61.226.7-34.0 pgMean Corpuscular HGB Conc 32.229.9-35.2 g/dLRed Cell Distribution Width15.011.0-15.0 %Platelet Sfvcp865 150-450 10 3/uLMean Platelet Wzdqxs20.19.5-13.5 fLNeutrophils Percent Auto61.2 43.0-75.0 %Lymphocytes Percent Auto30.020.5-60.0 %Monocytes Percent Auto6.41.7- 12.0 %Eosinophils Percent Auto1.60.9-7.0 %Basophils Percent Auto0.50.2-2.0 % Immature Granulocytes Pct Auto0.30.0-0.5 %Neutrophils Absolute Auto4.51.4-6.5 10 3/uLLymphocytes Absolute Auto2.21.2-3.8 10 3/uLMonocytes Absolute Auto0.50.3-0.8 10 3/uLEosinophils Absolute Auto0.10.0-0.7 10 3/uLBasophils Absolute Auto0.00.0- 0.1 10 3/uLImmature Granulocytes Abs Auto0.020.00-0.03 10 3/uLPerforming Lab:see noteML - [facility] LBCRP Reviewed date:03/26/2025 08:13:17 PM Interpretation: Performing Lab: Notes/Report: [facility] ,C Reactive Protein0.89<=0.50 mg/dLPerforming Lab:see noteML - [facility] LBLIPASE Reviewed date:03/26/2025 08:13:17 PM Interpretation: Performing Lab: Notes/Report: [facility] ,Ayaskx05.016.0-77.0 U/LPerforming Lab:see noteML - [facility] LBPROF 14(COMP METB) Reviewed date:03/26/2025 08:13:17 PM Interpretation: Performing Lab: Notes/Report: [facility] ,Xpevgq264780-250 mmol/LPotassium2.53.5-5.1 mmol/L RESULTS CALLED TO UMM DIEHL RN @BY Mirtha Oconnor at 2343 Vtbzaysa87246-073 mmol/LCarbon Bujywzc11.821.0-32.0 mmol/LAnion Gap9.0Ntnzrzy424 74-106 mg/dLBlood Urea Gicbhkms25.07.0-18.0 mg/dLCreatinine1.340.55-1.02 mg/dL Estimated GFR ( Godryxd63>=60 mL/min/1.73m 2Estimated GFR (Non- Ame40>=60 mL/min/1.73m 2BUN Creatinine Ratio14.4Zkfcwop3.78.5-10.1 mg/dL Bilirubin Total0.30.2-1.0 mg/dLAspartate Amino Hoyekueqixd1328-97 U/LAlanine Kedxjkjohnjrpwbv0886-52 U/LAlkaline Pgsovieeyzx3353-719 U/LTotal Protein6.76.4- 8.2 g/dLAlbumin Level3.23.4-5.0 g/dLGlobulin3.5Albumin Globulin Ratio0.9 Performing Lab:see noteML - [facility] LBTroponin I High Sensitivity Reviewed date:03/26/2025 08:13:17 PM Interpretation: Performing Lab: Notes/Report: [facility] ,Troponin I High Gojnevschjv90.94.0-51.3 pg/mL CUT-OFF POINTS HAVE BEEN ESTABLISHED BASED ON THE FOURTH UNIVERSAL DEFINITION OF MYOCARDIAL INFARCTION. THE UPPER REFERENCE LIMIT (URL) OF TROPONIN, DEFINED THE 99TH PERCENTILE OF cTnI DISTRIBUTION IN A REFERENCE POPULATION, HAS BEEN CONFIRMED THE DECISION THRESHOLD FOR MD DIAGNOSIS. 99TH PERCENTILE = 51.4 PG/ML NOTE: HIGH-SENSITIVITY TROPONIN ASSAY IS NOT INTENDED TO BE USED IN ISOLATION BUT SHOULD BE INTERPRETED IN CONJUNCTION WITH OTHER DIAGNOSTIC AND CLINICAL INFORMATION. Performing Lab:see note - [facility] LBECG 12 lead Reviewed date:03/26/2025 08:13:17 PM Interpretation: Performing Lab: Notes/Report: Source Facility: [facility]-[address] [place] [address] [place] [address] Electrocardiograph Report Signed Patient: ABY MADRIGAL MR#: [id number] : 1965 Acct:[id number] Age/Sex: 59 / F ADM Date: 03/25/25 Loc: ER Attending Dr: Ordering Physician: Kyung Jones D.O. 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 Measurements Intervals [place] Rate: 79 P: 50 AK: 182 QRS: 11 QRSD: 96 T: 181 QT: 350 QTc: 384 Interpretive Statements 1100 Sinus rhythm [address] depression 4564 Twave abnormality, possible lateral ischemia 9150 abnormal ECG Compared to ECG 01/31/2025 00:27:11 No significant changes Electronically Signed On 03-26-2025 7:48:20 EDT by GOMEZ JAY M.D. Dictated By: GOMEZ JAY Signed By: 03/26/25 0748 DD/ 2221 TD/TT: Loan Review Officer:MAGNESIUM Reviewed date:03/26/2025 08:13:17 PM Interpretation: Performing Lab: Notes/Report: [facility] ,Magnesium0.91.8-2.4 mg/dL RESULTS CALLED TO NASIR SNYDER RN @BY Mirtha Oconnor at 0155 Performing Lab:see noteML - [facility] LBTroponin I High Sensitivity Reviewed date:03/26/2025 08:13:17 PM Interpretation: Performing Lab: Notes/Report: [facility] ,Troponin I High Ecfjxvmbarp00.24.0-51.3 pg/mL CUT-OFF POINTS HAVE BEEN ESTABLISHED BASED ON THE FOURTH UNIVERSAL DEFINITION OF MYOCARDIAL INFARCTION. THE UPPER REFERENCE LIMIT (URL) OF TROPONIN, DEFINED THE 99TH PERCENTILE OF cTnI DISTRIBUTION IN A REFERENCE POPULATION, HAS BEEN CONFIRMED THE DECISION THRESHOLD FOR MD DIAGNOSIS. 99TH PERCENTILE = 51.4 PG/ML NOTE: HIGH-SENSITIVITY TROPONIN ASSAY IS NOT INTENDED TO BE USED IN ISOLATION BUT SHOULD BE INTERPRETED IN CONJUNCTION WITH OTHER DIAGNOSTIC AND CLINICAL INFORMATION. Performing Lab:see noteML - [facility] LBCBC AUTO DIFF Reviewed date:04/01/2025 06:23:54 PM Interpretation: Performing Lab: Notes/Report: [facility] ,White Blood Count6.54.0-11.0 10 3/uLRed Blood Count4.374.20-5.40 10 6/uL Njzbekpnoc25.812.0-16.0 g/gMLvovgporhk99.336.0-48.0 %Mean Corpuscular Edfivu17.1 81.0-99.0 fLMean Corpuscular Fjqtkohrhj21.026.7-34.0 pgMean Corpuscular HGB Conc 32.529.9-35.2 g/dLRed Cell Distribution Width15.411.0-15.0 %Platelet Knfhj267 150-450 10 3/uLMean Platelet Rcapwb02.39.5-13.5 fLNeutrophils Percent Auto49.6 43.0-75.0 %Lymphocytes Percent Auto39.020.5-60.0 %Monocytes Percent Auto7.41.7- 12.0 %Eosinophils Percent Auto2.60.9-7.0 %Basophils Percent Auto1.10.2-2.0 % Immature Granulocytes Pct Auto0.30.0-0.5 %Neutrophils Absolute Auto3.21.4-6.5 10 3/uLLymphocytes Absolute Auto2.51.2-3.8 10 3/uLMonocytes Absolute Auto0.50.3-0.8 10 3/uLEosinophils Absolute Auto0.20.0-0.7 10 3/uLBasophils Absolute Auto0.10.0- 0.1 10 3/uLImmature Granulocytes Abs Auto0.020.00-0.03 10 3/uLPerforming Lab:see noteML - [facility] LBPROF 14(COMP METB) Reviewed date:04/01/2025 06:27:24 PM Interpretation: Performing Lab: Notes/Report: [facility] ,Oxptlf483826-896 mmol/LPotassium2.93.5-5.1 mmol/LRESULTS CALLED TO DAVID BROTHERS AT 7426Qfgddpop52586-705 mmol/LCarbon Vqbornx14.821.0-32.0 mmol/LAnion Gap10.1 Hxayfgc9795-079 mg/dLBlood Urea Darumtnh53.07.0-18.0 mg/dLCreatinine1.170.55- 1.02 mg/dLEstimated GFR ( Ijsdgfe65>=60 mL/min/1.73m 2Estimated GFR (Non- Ame47>=60 mL/min/1.73m 2BUN Creatinine Ratio19.6Opavjhl1.38.5-10.1 mg/dL Bilirubin Total0.30.2-1.0 mg/dLAspartate Amino Phkkdlktqxd4227-44 U/LAlanine Ymaptqkqehjyztqb5090-06 U/LAlkaline Tirnnycxaza2752-435 U/LTotal Protein6.16.4- 8.2 g/dLAlbumin Level3.03.4-5.0 g/dLGlobulin3.1Albumin Globulin Ratio1.0 Performing Lab:see [facility] LBLAB TESTING Reviewed date:04/25/2025 09:59:02 PM Interpretation: Performing Lab: Notes/Report: 685011 Reducing Substances - Fecal [facility] ,Miscellaneous TestCOMMENT. Test Ordered: 523241 Reducing Substances - Fecal Reducing Substances - Fecal Normal Y8 Reference Range: Normal Performed at: Y8 - [employer] [address] [id number] Supervisor In Circuit Testing: Navneet Simeon [facility], Phone: [phone] Performed at: [facility] Lab[address] [id number] Supervisor In [employer] Testing: Gopi Romeo PhD, Phone: [phone] Performing Lab:see [facility] LBC. Difficile PCR Reviewed date:04/19/2025 06:15:21 PM Interpretation: Performing Lab: Notes/Report: [facility] ,C. Difficile PCRNEGATIVEPerforming Lab:see [facility] LBE coli Shiga Toxin EIA Reviewed date:04/22/2025 04:45:20 PM Interpretation: Performing Lab: Notes/Report: [facility] ,E coli Shiga Toxin EIASee Below For Report E coli Shiga Toxin EIA E coli Shiga Toxin EIANegative E coli Shiga Toxin EIA E coli Shiga Toxin EIAPerformed at: [facility] E coli Shiga Toxin EIA E coli Shiga Toxin [id number] [place], [place] [id number] E coli Shiga Toxin EIA E coli Shiga Toxin EIALab Director: Gopi Romeo PhD, Phone: [phone] E coli Shiga Toxin EIA Performing Lab:see note LC - [facility] LB SEE REPORT - Chainman Id information not found for OBX-specific sys dir legend Salmonella/Shigella Screen Reviewed date:04/24/2025 04:35:14 PM Interpretation: Performing Lab: Notes/Report: [facility] ,Salmonella/Shigella ScreenSee Below For Report Salmonella/Shigella Screen Salmonella/Shigella ScreenNo Salmonella or Shigella recovered. Salmonella/Shigella Screen Performing Lab:see note - [facility] LBE coli Shiga Toxin EIA Reviewed date:04/24/2025 04:35:14 PM Interpretation: Performing Lab: Notes/Report: [facility] ,E coli Shiga Toxin EIASee Below For Report E coli Shiga Toxin EIA E coli Shiga Toxin EIANegative E coli Shiga Toxin EIA E coli Shiga Toxin EIAPerformed at: [facility] E coli Shiga Toxin EIA E coli Shiga Toxin [id number] [place], [place] [id number] E coli Shiga Toxin EIA E coli Shiga Toxin EIALab Director: Gopi Romeo PhD, Phone: [phone] E coli Shiga Toxin EIA Performing Lab:see note LC - [facility] LB SEE REPORT - Chainman Id information not found for OBX-specific sys dir legend LIPASE Reviewed date:05/09/2025 05:41:53 PM Interpretation: Performing Lab: Notes/Report: [facility] ,Tjyvih58.016.0-77.0 U/LPerforming Lab:see noteML - [facility] LBPROF 14(COMP METB) Reviewed date:05/09/2025 05:41:53 PM Interpretation: Performing Lab: Notes/Report: [facility] ,Velrxe491276-036 mmol/LPotassium4.23.5-5.1 mmol/JJsbyibew84379-125 mmol/LCarbon Ukpgnnd16.821.0-32.0 mmol/LAnion Gap15.9Insjihp65505-503 mg/dLBlood Urea Wtquddqh26.07.0-18.0 mg/dLCreatinine1.020.55-1.02 mg/dLEstimated GFR ( Candace>60>=60 mL/min/1.73m 2Estimated GFR (Non- Ame55>=60 mL/min/1.73m 2 BUN Creatinine Ratio14.3Jrwofmy6.38.5-10.1 mg/dLBilirubin Total0.40.2-1.0 mg/dL Aspartate Amino Elcwvjtjnwn2576-50 U/LAlanine Orporbdgogvqifpp8573-06 U/L Alkaline Kolrvkypohm8854-449 U/LTotal Protein7.16.4-8.2 g/dLAlbumin Level3.73.4- 5.0 g/dLGlobulin3.4Albumin Globulin Ratio1.1Performing Lab:see noteML - [facility] LBTroponin I High Sensitivity Reviewed date:05/09/2025 05:41:53 PM Interpretation: Performing Lab: Notes/Report: [facility] ,Troponin I High Sensitivity6.44.0-51.3 pg/mL CUT-OFF POINTS HAVE BEEN ESTABLISHED BASED ON THE FOURTH UNIVERSAL DEFINITION OF MYOCARDIAL INFARCTION. THE UPPER REFERENCE LIMIT (URL) OF TROPONIN, DEFINED THE 99TH PERCENTILE OF cTnI DISTRIBUTION IN A REFERENCE POPULATION, HAS BEEN CONFIRMED THE DECISION THRESHOLD FOR MD DIAGNOSIS. 99TH PERCENTILE = 51.4 PG/ML NOTE: HIGH-SENSITIVITY TROPONIN ASSAY IS NOT INTENDED TO BE USED IN ISOLATION BUT SHOULD BE INTERPRETED IN CONJUNCTION WITH OTHER DIAGNOSTIC AND CLINICAL INFORMATION. Performing Lab:see noteML - [facility] LBECG 12 lead Reviewed date:05/09/2025 09:12:38 PM Interpretation: Performing Lab: Notes/Report: Source Facility: [facility]-[address] [place] [address] [place] [address] Electrocardiograph Report Signed Patient: ABY MADRIGAL MR#: [id number] : 1965 Acct:[id number] Age/Sex: 59 / F ADM Date: 05/09/25 Loc: ER Attending Dr: Ordering Physician: Elsie Balderrama Date of Service: 05/09/25 Procedure(s): ECG 12 lead Accession Number(s): [id number] cc: [facility] Test Date: 2025-05-09 Pat Name: ABY MADRIGAL Department: Room: - Gender: Female 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 Measurements Intervals [place] Rate: 60 P: 50 AK: 186 QRS: 20 QRSD: 88 T: 104 QT: 420 QTc: 420 Interpretive Statements 1100 Sinus rhythm 4564 Twave abnormality, possible lateral ischemia 9150 abnormal ECG Compared to ECG 03/25/2025 22:21:42 ST (T wave) deviation no longer present Possible ischemia still present Electronically Signed On 05-09-2025 21:06:32 EDT by GOMEZ JAY M.D. Dictated By: GOMEZ JAY Signed By: 05/09/25 210 DD/ 1539 TD/TT: Loan Review Officer:XR chest 1V Reviewed date:05/09/2025 05:41:53 PM Interpretation: Performing Lab: Notes/Report: Source Facility: [place] [address] XRay Report Signed Patient: ABY MADRIGAL MR#: [id number] : 1965 Acct:[id number] Age/Sex: 59 / F ADM Date: 05/09/25 Loc: ER Attending Dr: Ordering Physician: Elsie Balderrama Date of Service: 05/09/25 Procedure(s): XR chest 1V Accession Number(s): [id number] cc: Kendra Murillo M.D.; Elsie Balderrama [place] [id number] Patient Name: ABY MADRIGAL MRN: [id number] date: 1965 Sex: F Assigned Patient Location: ER Current Patient Location: ER Accession/Order Number: [id number] Exam Date: 05/09/2025 16:03 Report Date: 05/09/2025 16:04 At the request of: ELSIE BALDERRAMA MD Procedure: XR chest 1V Plain [...] IMPRESSION: No acute process. Impression dictated by: Elsie White M.D. 05/09/2025 4:04 PM Dictation Location: [place] [address] Electronically authenticated by: [id number] Y Date: 05/09/2025 16:04 Dictated By: Elsie White D.O. Signed By: 05/09/251605 DD/ 03 TD/TT: Loan Review Officer:ECG 12 lead Reviewed date:05/10/2025 07:06:51 PM Interpretation: Performing Lab: Notes/Report: Source Facility: [place] [address] Electrocardiograph Report Signed Patient: ABY MADRIGAL MR#: [id number] : 1965 Acct:[id number] Age/Sex: 59 / F ADM Date: 05/09/25 Loc: MS 217- Attending Dr: Kendra Murillo M.D. 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 Measurements Intervals [place] Rate: 60 P: 47 AK: 178 QRS: 15 QRSD: 86 T: 109 QT: 424 QTc: 424 Interpretive Statements 1100 Sinus rhythm 4564 Twave abnormality, possible lateral ischemia 5211 Minimal voltage criteria for LVH, may be normal variant 9150 abnormal ECG Compared to ECG 05/09/2025 15:39:44 No significant changes Electronically Signed On 05-10-2025 17:47:23 EDT by GOMEZ JAY M.D. Dictated By: GOMEZ JAY Signed By: 05/10/25174605/10/251746 DD/ 1557 TD/TT: Loan Review Officer:BNP Reviewed date:05/10/2025 08:41:08 AM Interpretation: Performing Lab: Notes/Report: Comment From blood this am if possible [facility] ,NT Pro B Type Natriuretic Kauq680.0<=900.0 pg/mLPerforming Lab:see note - [facility] LBPROF 14(COMP METB) Reviewed date:05/10/2025 08:41:08 AM Interpretation: Performing Lab: Notes/Report: [facility] ,Yeinzm584662-972 mmol/LPotassium3.73.5-5.1 mmol/RWbxflffa70592-502 mmol/LCarbon Ovdjcwg41.721.0-32.0 mmol/LAnion Gap13.7Zamfrfa32487-946 mg/dLBlood Urea Ruhicinb39.07.0-18.0 mg/dLCreatinine0.890.55-1.02 mg/dLEstimated GFR ( Candace>60>=60 mL/min/1.73m 2Estimated GFR (Non- Susi>60>=60 mL/min/1.73m 2BUN Creatinine Ratio21.7Nptvucf2.18.5-10.1 mg/dLBilirubin Total0.40.2-1.0 mg/dL Aspartate Amino Abwmpgueozu8708-49 U/LAlanine Mlewduvehdmkfkvh6956-59 U/L Alkaline Ufwceadqlum8535-199 U/LTotal Protein6.26.4-8.2 g/dLAlbumin Level3.33.4- 5.0 g/dLGlobulin2.9Albumin Globulin Ratio1.1Performing Lab:see note - [facility] LBTroponin I High Sensitivity Reviewed date:05/10/2025 08:41:09 AM Interpretation: Performing Lab: Notes/Report: [facility] ,Troponin I High Yznekncxcan18.04.0-51.3 pg/mL CUT-OFF POINTS HAVE BEEN ESTABLISHED BASED ON THE FOURTH UNIVERSAL DEFINITION OF MYOCARDIAL INFARCTION. THE UPPER REFERENCE LIMIT (URL) OF TROPONIN, DEFINED THE 99TH PERCENTILE OF cTnI DISTRIBUTION IN A REFERENCE POPULATION, HAS BEEN CONFIRMED THE DECISION THRESHOLD FOR MD DIAGNOSIS. 99TH PERCENTILE = 51.4 PG/ML NOTE: HIGH-SENSITIVITY TROPONIN ASSAY IS NOT INTENDED TO BE USED IN ISOLATION BUT SHOULD BE INTERPRETED IN CONJUNCTION WITH OTHER DIAGNOSTIC AND CLINICAL INFORMATION. Performing Lab:see noteML - [facility] LBTroponin I High Sensitivity Reviewed date:05/10/2025 07:06:51 PM Interpretation: Performing Lab: Notes/Report: [facility] ,Troponin I High Jfenqrmowlh10.24.0-51.3 pg/mL CUT-OFF POINTS HAVE BEEN ESTABLISHED BASED ON THE FOURTH UNIVERSAL DEFINITION OF MYOCARDIAL INFARCTION. THE UPPER REFERENCE LIMIT (URL) OF TROPONIN, DEFINED THE 99TH PERCENTILE OF cTnI DISTRIBUTION IN A REFERENCE POPULATION, HAS BEEN CONFIRMED THE DECISION THRESHOLD FOR MD DIAGNOSIS. 99TH PERCENTILE = 51.4 PG/ML NOTE: HIGH-SENSITIVITY TROPONIN ASSAY IS NOT INTENDED TO BE USED IN ISOLATION BUT SHOULD BE INTERPRETED IN CONJUNCTION WITH OTHER DIAGNOSTIC AND CLINICAL INFORMATION. Performing Lab:see note - [facility] LBMR knee LT wo con Reviewed date:05/14/2025 08:22:33 PM Interpretation: Performing Lab: Notes/Report: Source Facility: [place] [address] [place] [address] Magnetic Resonance Report Signed Patient: ABY MADRIGAL MR#: [id number] : 1965 Acct:[id number] Age/Sex: 59 / F ADM Date: 05/14/25 Loc: MRI Attending Dr: Kendra Murillo M.D. Ordering Physician: Kendra Murillo M.D. Date of Service: 05/14/25 Procedure(s): MR knee LT wo con Accession Number(s): [id number] cc: Kendra Murillo M.D. [place] [address] Patient Name: ABY MADRIGAL MRN: [facility]:[id number] date: 1965 Sex: F Assigned Patient Location: MRI Current Patient Location: MRI Accession/Order Number: [id number] Exam Date: 05/14/2025 16:44 Report Date: 05/14/2025 [...] Parada M.D. 05/14/2025 4:51 PM Dictation Location: [place] [address] Electronically authenticated by: [id number] Y Date: 05/14/2025 16:51 Dictated By: Jarocho Parada M.D. Signed By: 05/14/254 DD/ 50 TD/TT: Loan Review Officer:ECG 12 lead Reviewed date:05/20/2025 03:18:13 PM Interpretation: Performing Lab: Notes/Report: Source Facility: [place] [address] [place] [address] Electrocardiograph Report Signed Patient: ABY MADRIGAL MR#: [id number] : 1965 Acct:[id number] Age/Sex: 59 / F ADM Date: 05/17/25 Loc: ER Attending Dr: Ordering Physician: Ayaka Beauchamp Date of Service: 05/17/25 Procedure(s): ECG 12 lead Accession Number(s): [id number] cc: [facility] Test Date: 2025-05-17 Pat Name: ABY MADRIGAL Department: Room: - Gender: Female 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 Measurements Intervals [place] Rate: 61 P: 53 AK: 182 QRS: 30 QRSD: 92 T: 150 QT: 390 QTc: 393 Interpretive Statements 1100 Sinus rhythm 4068 Nonspecific Twave abnormality 9130 borderline ECG Compared to ECG 05/09/2025 15:57:14 No significant changes Electronically Signed On 05-19-2025 11:58:15 EDT by GOMEZ JAY M.D. Dictated By: GOMEZ JAY Signed By: 05/19/25 1158 DD/ 7894 TD/TT: Loan Review Officer:LEEANNE T3 Reviewed date:06/05/2025 09:07:10 PM Interpretation: Performing Lab: Notes/Report: [facility] Leeanne T31.952.18-3.98 pg/mLPerforming Lab:see noteML - [facility] GLYCOHEMOGLOBIN A1C Reviewed date:06/05/2025 09:07:10 PM Interpretation: Performing Lab: Notes/Report: [facility] ,Glycohemoglobin A1C5.94.5-6.2 % ADA RECOMMENDED LIMIT 4.0 - 6.0 ADA THERAPEUTIC TARGET < 7.0 ACTION SUGGESTED > 7.0 Estimated Average Fmtatrt877Nxqegutrnh Lab:see noteML - [facility] LB LIPID PROFILE Reviewed date:06/05/2025 09:07:10 PM Interpretation: Performing Lab: Notes/Report: [facility] ,Apmfzeqnucnra75<=150 mg/lOLsnbuvncecc022<=200 mg/dLHDL Igkvjkhzmrf1965-42 mg/dL > or =60 mg/dl - LOW CARDIOVASCULAR RISK <40 mg/dl - HIGH CARDIOVASCULAR RISK LDL Cholesterol Oilzgqkmtc94.0 <100 mg/dl OPTIMAL 100-129 mg/dl NEAR OR ABOVE OPTIMAL 130-159 mg/dl BORDERLINE HIGH 160-189 mg/dl HIGH >190 mg/dl VERY HIGH VLDL CHOLESTEROL8.8Chol HDL Ratio1.9 3.3 - 4.4 LOW RISK 4.4 - 7.1 AVERAGE RISK 7.1 - 11.0 MODERATE RISK >11.0 HIGH RISK Performing Lab:see noteML - [facility] LBPROF 14(COMP METB) Reviewed date:06/05/2025 09:07:10 PM Interpretation: Performing Lab: Notes/Report: [facility] ,Ieejba119674-839 mmol/LPotassium4.03.5-5.1 mmol/KUydluxei07165-956 mmol/LCarbon Bntkmly83.021.0-32.0 mmol/LAnion Gap14.7Gllbkel0250-664 mg/dLBlood Urea Nitrogen 21.07.0-18.0 mg/dLCreatinine1.220.55-1.02 mg/dLEstimated GFR ( Hkmobgj59 >=60 mL/min/1.73m 2Estimated GFR (Non- Ame45>=60 mL/min/1.73m 2BUN Creatinine Ratio17.1Adbimqe1.28.5-10.1 mg/dLBilirubin Total0.60.2-1.0 mg/dL Aspartate Amino Qafinvjscaa0245-19 U/LAlanine Djchrlivzquxwvks6049-98 U/L Alkaline Maapofoioml8229-007 U/LTotal Protein6.76.4-8.2 g/dLAlbumin Level3.53.4- 5.0 g/dLGlobulin3.2Albumin Globulin Ratio1.1Performing Lab:see noteML - [facility] LBT4 Reviewed date:06/05/2025 09:07:10 PM Interpretation: Performing Lab: Notes/Report: [facility] ,T4 Thyroxine7.204.80-13.90 ug/dLPerforming Lab:see noteML - [facility] LBTSH Reviewed date:06/05/2025 09:07:10 PM Interpretation: Performing Lab: Notes/Report: [facility] ,Thyroid Stimulating Hormone2.2000.358-3.740 uIU/mLPerforming Lab:see noteML - [facility] LBNM ben perf SPECT rest str Reviewed date:06/05/2025 09:07:10 PM Interpretation: Performing Lab: Notes/Report: Source Facility: [place] [address] Nuclear Medicine Report Signed Patient: ABY MADRIGAL MR#: [id number] : 1965 Acct:[id number] Age/Sex: 59 / F ADM Date: 06/05/25 Loc: NM Attending Dr: GOMEZ JAY Ordering Physician: GOMEZ JAY Date of Service: 06/05/25 Procedure(s): NM ben perf SPECT rest str Accession Number(s): [id number] cc: Kendra Murillo M.D.; GOMEZ JAY Patient Name: ABY MADRIGAL MR#: [id number] : 1965 Exam Date: 06/05/2025 Ordering Doctor: DR GOMEZ JAY M.D. RADIOLOGY REPORT PROCEDURE: NM BEN PERF SPECT REST STR COMPARISON: None. INDICATIONS: [...] the study was pending per attending physician [facility]. For more details, please see separate cardiac [...] Signed By: 06/05/25 1553 DD/ 1553 TD/TT: Loan Review Officer:BNP Reviewed date:06/07/2025 06:53:30 PM Interpretation: Performing Lab: Notes/Report: [facility] ,NT Pro B Type Natriuretic Ovev673.0<=900.0 pg/mLPerforming Lab:see noteML - [facility] LBCBC AUTO DIFF Reviewed date:06/06/2025 09:01:20 PM Interpretation: Performing Lab: Notes/Report: [facility] ,White Blood Count6.84.0-11.0 10 3/uLRed Blood Count4.264.20-5.40 10 6/uL Nrnwiubnma08.512.0-16.0 g/wKQydpuwtwof33.736.0-48.0 %Mean Corpuscular Ptqngl85.8 81.0-99.0 fLMean Corpuscular Kogfeycrxl47.026.7-34.0 pgMean Corpuscular HGB Conc 32.229.9-35.2 g/dLRed Cell Distribution Width16.411.0-15.0 %Platelet Tvzpf143 150-450 10 3/uLMean Platelet Volume9.79.5-13.5 fLNeutrophils Percent Auto54.0 43.0-75.0 %Lymphocytes Percent Auto35.820.5-60.0 %Monocytes Percent Auto7.91.7- 12.0 %Eosinophils Percent Auto1.60.9-7.0 %Basophils Percent Auto0.60.2-2.0 % Immature Granulocytes Pct Auto0.10.0-0.5 %Neutrophils Absolute Auto3.71.4-6.5 10 3/uLLymphocytes Absolute Auto2.41.2-3.8 10 3/uLMonocytes Absolute Auto0.50.3-0.8 10 3/uLEosinophils Absolute Auto0.10.0-0.7 10 3/uLBasophils Absolute Auto0.00.0- 0.1 10 3/uLImmature Granulocytes Abs Auto0.010.00-0.03 10 3/uLPerforming Lab:see noteML - [facility] LBPROF CHEM 8 (BAS METB) Reviewed date:06/07/2025 06:53:30 PM Interpretation: Performing Lab: Notes/Report: [facility] ,Mrqevp991887-631 mmol/LPotassium4.43.5-5.1 mmol/SYmuolkfw01819-376 mmol/LCarbon Bylxnve75.721.0-32.0 mmol/LAnion Gap13.1Kakbswp79942-368 mg/dLBlood Urea Lhefvwnz06.07.0-18.0 mg/dLCreatinine0.990.55-1.02 mg/dLEstimated GFR ( Candace>60>=60 mL/min/1.73m 2Estimated GFR (Non- Ame57>=60 mL/min/1.73m 2 BUN Creatinine Ratio20.9Gitsvkj1.28.5-10.1 mg/dLPerforming Lab:see noteML - [facility] LBTroponin I High Sensitivity Reviewed date:06/07/2025 06:53:30 PM Interpretation: Performing Lab: Notes/Report: [facility] ,Troponin I High Sensitivity6.74.0-51.3 pg/mL CUT-OFF POINTS HAVE BEEN ESTABLISHED BASED ON THE FOURTH UNIVERSAL DEFINITION OF MYOCARDIAL INFARCTION. THE UPPER REFERENCE LIMIT (URL) OF TROPONIN, DEFINED THE 99TH PERCENTILE OF cTnI DISTRIBUTION IN A REFERENCE POPULATION, HAS BEEN CONFIRMED THE DECISION THRESHOLD FOR MD DIAGNOSIS. 99TH PERCENTILE = 51.4 PG/ML NOTE: HIGH-SENSITIVITY TROPONIN ASSAY IS NOT INTENDED TO BE USED IN ISOLATION BUT SHOULD BE INTERPRETED IN CONJUNCTION WITH OTHER DIAGNOSTIC AND CLINICAL INFORMATION. Performing Lab:see noteML - [facility] LBECG 12 lead Reviewed date:06/09/2025 03:43:46 PM Interpretation: Performing Lab: Notes/Report: Source Facility: [place] [address] Electrocardiograph Report Signed Patient: ABY MADRIGAL MR#: [id number] : 1965 Acct:[id number] Age/Sex: 59 / F ADM Date: 06/06/25 Loc: ER Attending Dr: Ordering Physician: Roberto Romeo Date of Service: 06/06/25 Procedure(s): ECG 12 lead Accession Number(s): [id number] cc: [facility] Test Date: 2025-06-06 Pat Name: ABY MADRIGAL Department: Room: - Gender: Female 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 Signed By: 06/08/25 0955 DD/ 00 TD/TT: Loan Review Officer:NADIA chest 1V Reviewed date:06/06/2025 09:01:20 PM Interpretation: Performing Lab: Notes/Report: Source Facility: [address] [place] [address] XRay Report Signed Patient: ABY MADRIGAL MR#: [id number] : 1965 Acct:[id number] Age/Sex: 59 / F ADM Date: 06/06/25 Loc: ER Attending Dr: Ordering Physician: Roberto Romeo Date of Service: 06/06/25 Procedure(s): XR chest 1V Accession Number(s): [id number] cc: Roberto Romeo; Kendra Murillo M.D. [place] [address] Patient Name: ABY MADRIGAL MRN: [id number] date: 1965 Sex: F Assigned Patient Location: ED.MAIN Current Patient Location: ED.MAIN Accession/Order Number: [id number] Exam Date: 06/06/2025 20:39 Report Date: 06/06/2025 20:40 At the request of: ROBERTO ROMEO MD Procedure: XR chest 1V XR [...] Parada M.D. 06/06/2025 8:40 PM Dictation Location: [place] [address] Electronically authenticated by: [id number] Y Date: 06/06/2025 20:40 Dictated By: Jarocho Parada M.D. 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 Order Number: [id number] Reading MD: Nikki Licea Interpretive Statements Session Date: Electronically Signed On 07-20-2025 13:27:51 EDT by Nikki Licea Dictated By: Nikki Licea M.D. Signed By: 07/20/25 1328 07/20/25 1328 DD/ 1429 TD/TT: Loan Review Officer:CBC AUTO DIFF Reviewed date:07/08/2025 01:56:17 PM Interpretation: Performing Lab: Notes/Report: [facility] ,White Blood Count5.64.0-11.0 10 3/uLRed Blood Count4.484.20-5.40 10 6/uL Nqlbyydgqw34.312.0-16.0 g/iNJtmfrahzap87.136.0-48.0 %Mean Corpuscular Hqzvqn31.0 81.0-99.0 fLMean Corpuscular Cgxofiivwf60.526.7-34.0 pgMean Corpuscular HGB Conc 32.329.9-35.2 g/dLRed Cell Distribution Width15.711.0-15.0 %Platelet Yjlso710 150-450 10 3/uLMean Platelet Zhhuul51.19.5-13.5 fLNeutrophils Percent Auto54.2 43.0-75.0 %Lymphocytes Percent Auto32.120.5-60.0 %Monocytes Percent Auto9.61.7- 12.0 %Eosinophils Percent Auto3.00.9-7.0 %Basophils Percent Auto0.70.2-2.0 % Immature Granulocytes Pct Auto0.40.0-0.5 %Neutrophils Absolute Auto3.11.4-6.5 10 3/uLLymphocytes Absolute Auto1.81.2-3.8 10 3/uLMonocytes Absolute Auto0.50.3-0.8 10 3/uLEosinophils Absolute Auto0.20.0-0.7 10 3/uLBasophils Absolute Auto0.00.0- 0.1 10 3/uLImmature Granulocytes Abs Auto0.020.00-0.03 10 3/uLPerforming Lab:see noteML - [facility] LBPROF CHEM 8 (BAS METB) Reviewed date:07/08/2025 01:56:17 PM Interpretation: Performing Lab: Notes/Report: [facility] ,[id number] mmol/LPotassium4.53.5-5.1 mmol/MKjethkyb85969-151 mmol/LCarbon Lbmeovk68.521.0-32.0 mmol/LAnion Gap12.0Lmeuqmo29087-313 mg/dLBlood Urea Ihckrudt22.07.0-18.0 mg/dLCreatinine1.220.55-1.02 mg/dLEstimated GFR ( Bflytfd33>=60 mL/min/1.73m 2Estimated GFR (Non- Ame45>=60 mL/min/1.73m 2 BUN Creatinine Ratio17.3Hbnhfdm3.28.5-10.1 mg/dLPerforming Lab:see noteML - [facility] [facility] LBTroponin I High Sensitivity Reviewed date:07/08/2025 01:56:17 PM Interpretation: Performing Lab: Notes/Report: [facility] ,Troponin I High Sensitivity7.14.0-51.3 pg/mL CUT-OFF POINTS HAVE BEEN ESTABLISHED BASED ON THE FOURTH UNIVERSAL DEFINITION OF MYOCARDIAL INFARCTION. THE UPPER REFERENCE LIMIT (URL) OF TROPONIN, DEFINED THE 99TH PERCENTILE OF cTnI DISTRIBUTION IN A REFERENCE POPULATION, HAS BEEN CONFIRMED THE DECISION THRESHOLD FOR MD DIAGNOSIS. 99TH PERCENTILE = 51.4 PG/ML NOTE: HIGH-SENSITIVITY TROPONIN ASSAY IS NOT INTENDED TO BE USED IN ISOLATION BUT SHOULD BE INTERPRETED IN CONJUNCTION WITH OTHER DIAGNOSTIC AND CLINICAL INFORMATION. Performing Lab:see noteML - [facility] LBECG 12 lead Reviewed date:07/09/2025 07:22:20 PM Interpretation: Performing Lab: Notes/Report: Source Facility: [place] [address] Electrocardiograph Report Signed Patient: ABY MADRIGAL MR#: [id number] : 1965 Acct:[id number] Age/Sex: 60 / F ADM Date: 07/08/25 Loc: ER Attending Dr: Ordering Physician: Jose Betancur M.D. 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 Measurements Intervals [place] Rate: 64 P: 50 AK: 166 QRS: 18 QRSD: 86 T: 77 QT: 376 QTc: 385 Interpretive Statements 1100 Sinus rhythm 4068 Nonspecific Twave abnormality 9130 borderline ECG Compared to ECG 06/06/2025 20:01:29 No significant changes Electronically Signed On 07-09-2025 17:41:33 EDT by GOMEZ JAY M.D. Dictated By: GOMEZ JAY Signed By: 07/09/25 1741 DD/ 1003 TD/TT: Loan Review Officer:NADIA chest 1V Reviewed date:07/08/2025 01:56:17 PM Interpretation: Performing Lab: Notes/Report: Source Facility: [facility] [place] [address] XRay Report Signed Patient: ABY MADRIGAL MR#: [id number] : 1965 Acct:[id number] Age/Sex: 60 / F ADM Date: 07/08/25 Loc: ER Attending Dr: Ordering Physician: Jose Betancur M.D. Date of Service: 07/08/25 Procedure(s): XR chest 1V Accession Number(s): [id number] cc: Kendra Murillo M.D.; Jose Betancur M.D. The [address] [address] Patient Name: ABY MADRIGAL MRN: [facility]:[id number] date: 1965 Sex: F Assigned Patient Location: ER Current Patient Location: ER Accession/Order Number: [id number] Exam Date: 07/08/2025 10:53 Report Date: 07/08/2025 [...] Jr., D.O. 07/08/2025 10:58 AM Dictation Location: [place] [address] Electronically authenticated by: [id number] Y Date: 07/08/2025 10:58 Dictated By: Malik Gomez M.D. Signed By: 07/08/25 1101 DD/ 1058 TD/TT: Loan Review Officer:Troponin I High Sensitivity Reviewed date:07/08/2025 01:56:17 PM Interpretation: Performing Lab: Notes/Report: [facility] ,Troponin I High Sensitivity5.34.0-51.3 pg/mL CUT-OFF POINTS HAVE BEEN ESTABLISHED BASED ON THE FOURTH UNIVERSAL DEFINITION OF MYOCARDIAL INFARCTION. THE UPPER REFERENCE LIMIT (URL) OF TROPONIN, DEFINED THE 99TH PERCENTILE OF cTnI DISTRIBUTION IN A REFERENCE POPULATION, HAS BEEN CONFIRMED THE DECISION THRESHOLD FOR MD DIAGNOSIS. 99TH PERCENTILE = 51.4 PG/ML NOTE: HIGH-SENSITIVITY TROPONIN ASSAY IS NOT INTENDED TO BE USED IN ISOLATION BUT SHOULD BE INTERPRETED IN CONJUNCTION WITH OTHER DIAGNOSTIC AND CLINICAL INFORMATION. 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 Order Number: [id number] Reading MD: GOMEZ JAY M.D. Interpretive Statements Patient may continue cardiac rehab as outlined in the treatment plan. Electronically Signed On 08-08-2025 17:59:25 EDT by GOMEZ JAY M.D. Dictated By: GOMEZ JAY Signed By: 08/08/25175808/08/251758 DD/ 5 TD/TT: Loan Review Officer:JULIANN Reviewed date:08/27/2025 06:46:36 PM Interpretation: Performing Lab: Notes/Report: Source Facility: [facility] [place] [address] [place] [address] Cardiac Rehab Report Signed Patient: ABY MADRIGAL MR#: [id number] : 1965 Acct:[id number] Age/Sex: 60 / F ADM Date: 08/23/25 Loc: CR Attending Dr: GOMEZ JAY Ordering Physician: GOMEZ JAY Date of Service: 08/27/25 Procedure(s): ITP Accession Number(s): [id number] cc: [facility] Test Date: 2025-08-27 Pat Name: ABY MADRIGAL Department: Room: - 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 Order Number: [id number] [place] MD: GOMEZ JAY M.D. Interpretive Statements Patient may continue cardiac rehab as outlined in the treatment plan. Electronically Signed On 08-27-2025 18:32:15 EDT by GOMEZ JAY M.D. Dictated By: GOMEZ JAY Signed By: 08/27/25183108/27/251831 DD/ 5 TD/TT: Loan Review Officer:MM tomosynthesis screening BI Reviewed date:09/06/2025 07:16:42 PM Interpretation: Performing Lab: Notes/Report: Source Facility: [place] [address] Mammography Report Signed Patient: ABY MADRIGAL MR#: [id number] : 1965 Acct:[id number] Age/Sex: 60 / F ADM Date: 09/06/25 Loc: MAMMO Attending Dr: Kendra Murillo M.D. Ordering Physician: Kendra Murillo M.D. Results: Date of Service: 09/06/25 Follow Up: Procedure(s): MM tomosynthesis screening BI Accession Number(s): [id number] cc: Kendra Murillo M.D. Patient Name: ABY MADRIGAL MR#: [id number] : 1965 Exam Date: 09/06/2025 Ordering Doctor: [...] lung cancer at age 43. LOCATION: [facility] BREAST COMPOSITION: There are scattered areas of fibroglandular density. FINDINGS: RIGHT BREAST: No significant suspicious finding. LEFT BREAST: No significant suspicious finding. DIAGNOSTIC CATEGORY 1--NEGATIVE. RECOMMENDATIONS: ROUTINE MAMMOGRAM AND CLINICAL EVALUATION IN 12 MONTHS. Dictated by: Jorge Stanley MD on 09/06/2025 at 14:48 Approved by: Jorge Stanley MD on 09/06/2025 at 14:51 Dictated By: Jorge Stanley M.D. 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 Order Number: [id number] [place] MD: GOMEZ JAY M.D. Interpretive Statements Patient may continue cardiac rehab as outlined in the treatment plan. Electronically Signed On 10-25-2025 20:53:22 EST by GOMEZ JAY M.D. Dictated By: GOMEZ JAY Signed By: 10/25/25205210/25/252052 DD/ 4 TD/TT: Loan Review Officer:CBC AUTO DIFF (Not yet reviewed by provider) Interpretation: Performing Lab: Notes/Report: [facility] ,White Blood Count6.94.0-11.0 10 3/uLRed Blood Count4.084.20-5.40 10 6/uL Veimedhuda19.312.0-16.0 g/nRFsskvbsevy09.836.0-48.0 %Mean Corpuscular Atgnpw83.3 81.0-99.0 fLMean Corpuscular Dgefrccnkz89.726.7-34.0 pgMean Corpuscular HGB Conc 32.529.9-35.2 g/dLRed Cell Distribution Width14.611.0-15.0 %Platelet Uabmp324 150-450 10 3/uLMean Platelet Xfakjq97.39.5-13.5 fLNeutrophils Percent Auto55.5 43.0-75.0 %Lymphocytes Percent Auto33.020.5-60.0 %Monocytes Percent Auto6.91.7- 12.0 %Eosinophils Percent Auto3.60.9-7.0 %Basophils Percent Auto0.70.2-2.0 % Immature Granulocytes Pct Auto0.30.0-0.5 %Neutrophils Absolute Auto3.81.4-6.5 10 3/uLLymphocytes Absolute Auto2.31.2-3.8 10 3/uLMonocytes Absolute Auto0.50.3-0.8 10 3/uLEosinophils Absolute Auto0.30.0-0.7 10 3/uLBasophils Absolute Auto0.10.0- 0.1 10 3/uLImmature Granulocytes Abs Auto0.020.00-0.03 10 3/uLPerforming Lab:see noteML - [facility] LBPROF 14(COMP METB) (Not yet reviewed by provider) Interpretation: Performing Lab: Notes/Report: [facility] ,Ainnyt085786-405 mmol/LPotassium3.43.5-5.1 mmol/XRsimpmlj18252-723 mmol/LCarbon Kjqjmoq99.621.0-32.0 mmol/LAnion Gap10.8Zsjyqus59863-490 mg/dLBlood Urea Elinyvjw17.07.0-18.0 mg/dLCreatinine1.020.55-1.02 mg/dLEstimated GFR ( Candace>60>=60 mL/min/1.73m 2Estimated GFR (Non- Ame55>=60 mL/min/1.73m 2 BUN Creatinine Ratio13.6Wbefmux6.38.5-10.1 mg/dLBilirubin Total0.30.2-1.0 mg/dL Aspartate Amino Tsvqcbvuilh0437-55 U/LAlanine Sceegyzoaegvqwzb2930-85 U/L Alkaline Praoyoqokpb9248-175 U/LTotal Protein6.36.4-8.2 g/dLAlbumin Level3.43.4- 5.0 g/dLGlobulin2.9Albumin Globulin Ratio1.2Performing Lab:see noteML - [facility] LBTroponin I High Sensitivity (Not yet reviewed by provider) Interpretation: Performing Lab: Notes/Report: [facility] ,Troponin I High Sensitivity9.14.0-51.3 pg/mL CUT-OFF POINTS HAVE BEEN ESTABLISHED BASED ON THE FOURTH UNIVERSAL DEFINITION OF MYOCARDIAL INFARCTION. THE UPPER REFERENCE LIMIT (URL) OF TROPONIN, DEFINED THE 99TH PERCENTILE OF cTnI DISTRIBUTION IN A REFERENCE POPULATION, HAS BEEN CONFIRMED THE DECISION THRESHOLD FOR MD DIAGNOSIS. 99TH PERCENTILE = 51.4 PG/ML NOTE: HIGH-SENSITIVITY TROPONIN ASSAY IS NOT INTENDED TO BE USED IN ISOLATION BUT SHOULD BE INTERPRETED IN CONJUNCTION WITH OTHER DIAGNOSTIC AND CLINICAL INFORMATION. Performing Lab:see noteML - [facility] LBPROF CHEM 8 (BAS METB) Reviewed date:09/27/2025 04:12:04 PM Interpretation: Performing Lab: Notes/Report: [facility] ,Ynaxqo791867-934 mmol/LPotassium4.03.5-5.1 mmol/ESwnjatiz66326-109 mmol/LCarbon Cvzudmw47.621.0-32.0 mmol/LAnion Gap13.0Afkjqrm46210-056 mg/dLBlood Urea Lowlxful00.07.0-18.0 mg/dLCreatinine1.080.55-1.02 mg/dLEstimated GFR ( Candace>60>=60 mL/min/1.73m 2Estimated GFR (Non- Ame52>=60 mL/min/1.73m 2 BUN Creatinine Ratio16.5Tthmthh2.98.5-10.1 mg/dLPerforming Lab:see noteML - [facility] LBITP Reviewed date:09/27/2025 12:51:05 PM Interpretation: Performing Lab: Notes/Report: Source Facility: [place] [address] [place] [address] Cardiac Rehab Report Signed Patient: ABY MADRIGAL MR#: [id number] : 1965 Acct:[id number] Age/Sex: 60 / F ADM Date: 09/27/25 Loc: CR Attending Dr: GOMEZ JAY Ordering Physician: GOMEZ JAY Date of Service: 09/26/25 Procedure(s): JULIANN Accession Number(s): [id number] cc: [facility] Test Date: 2025-09-26 Pat Name: ABY MADRIGAL Department: Room: - 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 Order Number: [id number] [place] MD: GOMEZ JAY M.D. Interpretive Statements Patient may continue cardiac rehab as outlined in the treatment plan. Electronically Signed On 09-27-2025 7:26:59 EST by GOMEZ JAY M.D. Dictated By: GOMEZ JAY Signed By: 09/27/2572609/27/25726 DD/ 1231 TD/TT: Loan Review Officer:JULIANN Reviewed date:07/23/2025 02:31:10 PM Interpretation: Performing Lab: Notes/Report: Source Facility: [place] [address] Cardiac Rehab Report Signed Patient: ABY MADRIGAL MR#: [id number] : 1965 Acct:[id number] Age/Sex: 60 / F ADM Date: 07/19/25 Loc: CR Attending Dr: GOMEZ JAY Ordering Physician: GOMEZ JAY Date of Service: 07/11/25 Procedure(s): ITP Accession Number(s): [id number] cc: [facility] Test Date: 2025-07-11 Pat Name: ABY MADRIGAL Department: Room: - 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 Order Number: [id number] Reading MD: Nikki Licea Interpretive Statements Session Date: Electronically Signed On 07-20-2025 13:28:13 EDT by Nikki Licea Dictated By: Nikki Licea M.D. Signed By: 07/20/25132707/20/251327 DD/ 4 TD/TT: Loan Review Officer:Prothrombin Time INR Reviewed date:06/07/2025 06:53:30 PM Interpretation: Performing Lab: Notes/Report: [facility] ,Prothrombin Time10.09.0-11.6 secINR0.94 DESIRED INR: 2.0-3.0 CONDITIONS NOT LISTED BELOW 2.5-3.5 FOR PROSTHETIC HEART VALVE REPLACEMENT 2.5-3.5 RECURRENT THROMBOSIS Performing Lab:see noteML - [facility] LBPTT Reviewed date:06/07/2025 06:53:30 PM Interpretation: Performing Lab: Notes/Report: [facility] ,Partial Thromboplastin Time28.122.3-36.2 secPerforming Lab:see noteML - [facility] LBCBC AUTO DIFF Reviewed date:06/05/2025 09:07:10 PM Interpretation: Performing Lab: Notes/Report: [facility] ,White Blood Count6.74.0-11.0 10 3/uLRed Blood Count4.554.20-5.40 10 6/uL Kvdybgicmo40.212.0-16.0 g/wGFkvhuwzjiu54.836.0-48.0 %Mean Corpuscular Umndvk11.3 81.0-99.0 fLMean Corpuscular Iyynzimufh82.826.7-34.0 pgMean Corpuscular HGB Conc 31.429.9-35.2 g/dLRed Cell Distribution Width16.711.0-15.0 %Platelet Sbacv635 150-450 10 3/uLMean Platelet Iaztfw74.19.5-13.5 fLNeutrophils Percent Auto57.7 43.0-75.0 %Lymphocytes Percent Auto34.420.5-60.0 %Monocytes Percent Auto5.71.7- 12.0 %Eosinophils Percent Auto1.40.9-7.0 %Basophils Percent Auto0.60.2-2.0 % Immature Granulocytes Pct Auto0.20.0-0.5 %Neutrophils Absolute Auto3.91.4-6.5 10 3/uLLymphocytes Absolute Auto2.31.2-3.8 10 3/uLMonocytes Absolute Auto0.40.3-0.8 10 3/uLEosinophils Absolute Auto0.10.0-0.7 10 3/uLBasophils Absolute Auto0.00.0- 0.1 10 3/uLImmature Granulocytes Abs Auto0.010.00-0.03 10 3/uLPerforming Lab:see noteML - [facility] LBTroponin I High Sensitivity Reviewed date:05/20/2025 03:18:13 PM Interpretation: Performing Lab: Notes/Report: [facility] ,Troponin I High Sensitivity5.64.0-51.3 pg/mL CUT-OFF POINTS HAVE BEEN ESTABLISHED BASED ON THE FOURTH UNIVERSAL DEFINITION OF MYOCARDIAL INFARCTION. THE UPPER REFERENCE LIMIT (URL) OF TROPONIN, DEFINED THE 99TH PERCENTILE OF cTnI DISTRIBUTION IN A REFERENCE POPULATION, HAS BEEN CONFIRMED THE DECISION THRESHOLD FOR MD DIAGNOSIS. 99TH PERCENTILE = 51.4 PG/ML NOTE: HIGH-SENSITIVITY TROPONIN ASSAY IS NOT INTENDED TO BE USED IN ISOLATION BUT SHOULD BE INTERPRETED IN CONJUNCTION WITH OTHER DIAGNOSTIC AND CLINICAL INFORMATION. Performing Lab:see noteML - [facility] LBPROF 14(COMP METB) Reviewed date:05/20/2025 03:18:13 PM Interpretation: Performing Lab: Notes/Report: [facility] ,Ujwvsz075168-603 mmol/LPotassium3.73.5-5.1 mmol/XSdelrgof81807-254 mmol/LCarbon Hkpacna99.621.0-32.0 mmol/LAnion Gap13.1Hawchba57941-272 mg/dLBlood Urea Zeqlbwih69.07.0-18.0 mg/dLCreatinine0.980.55-1.02 mg/dLEstimated GFR ( Candace>60>=60 mL/min/1.73m 2Estimated GFR (Non- Ame58>=60 mL/min/1.73m 2 BUN Creatinine Ratio24.0Iftuiwq4.58.5-10.1 mg/dLBilirubin Total0.30.2-1.0 mg/dL Aspartate Amino Rsfwuypylgk1376-15 U/LAlanine Gpmtbqeqwwspxjjm9003-64 U/L Alkaline Yzwdcildzai0300-185 U/LTotal Protein6.96.4-8.2 g/dLAlbumin Level3.53.4- 5.0 g/dLGlobulin3.4Albumin Globulin Ratio1.0Performing Lab:see noteML - [facility] LBCBC AUTO DIFF Reviewed date:05/20/2025 03:18:13 PM Interpretation: Performing Lab: Notes/Report: [facility] ,White Blood Count6.74.0-11.0 10 3/uLRed Blood Count4.264.20-5.40 10 6/uL Cohllfkhel96.412.0-16.0 g/rAFgddheonvo46.636.0-48.0 %Mean Corpuscular Bskqmh17.6 81.0-99.0 fLMean Corpuscular Kkqmoysylc68.826.7-34.0 pgMean Corpuscular HGB Conc 32.029.9-35.2 g/dLRed Cell Distribution Width15.811.0-15.0 %Platelet Emtyj514 150-450 10 3/uLMean Platelet Volume9.79.5-13.5 fLNeutrophils Percent Auto54.7 43.0-75.0 %Lymphocytes Percent Auto34.320.5-60.0 %Monocytes Percent Auto7.71.7- 12.0 %Eosinophils Percent Auto2.80.9-7.0 %Basophils Percent Auto0.40.2-2.0 % Immature Granulocytes Pct Auto0.10.0-0.5 %Neutrophils Absolute Auto3.71.4-6.5 10 3/uLLymphocytes Absolute Auto2.31.2-3.8 10 3/uLMonocytes Absolute Auto0.50.3-0.8 10 3/uLEosinophils Absolute Auto0.20.0-0.7 10 3/uLBasophils Absolute Auto0.00.0- 0.1 10 3/uLImmature Granulocytes Abs Auto0.010.00-0.03 10 3/uLPerforming Lab:see noteML - [facility] LBMAGNESIUM Reviewed date:05/10/2025 08:41:08 AM Interpretation: Performing Lab: Notes/Report: [facility] ,Magnesium2.11.8-2.4 mg/dLPerforming Lab:see noteML - [facility] LB CBC AUTO DIFF Reviewed date:05/10/2025 08:41:08 AM Interpretation: Performing Lab: Notes/Report: [facility] ,White Blood Count4.94.0-11.0 10 3/uLRed Blood Count4.234.20-5.40 10 6/uL Zxjanvxtoy32.212.0-16.0 g/yWXnltwrsyzt29.136.0-48.0 %Mean Corpuscular Luhqzv25.0 81.0-99.0 fLMean Corpuscular Caeirofemg25.526.7-34.0 pgMean Corpuscular HGB Conc 31.929.9-35.2 g/dLRed Cell Distribution Width15.811.0-15.0 %Platelet Gooxt832 150-450 10 3/uLMean Platelet Vcrzcx58.19.5-13.5 fLNeutrophils Percent Auto48.9 43.0-75.0 %Lymphocytes Percent Auto40.220.5-60.0 %Monocytes Percent Auto6.81.7- 12.0 %Eosinophils Percent Auto3.10.9-7.0 %Basophils Percent Auto0.80.2-2.0 % Immature Granulocytes Pct Auto0.20.0-0.5 %Neutrophils Absolute Auto2.41.4-6.5 10 3/uLLymphocytes Absolute Auto2.01.2-3.8 10 3/uLMonocytes Absolute Auto0.30.3-0.8 10 3/uLEosinophils Absolute Auto0.20.0-0.7 10 3/uLBasophils Absolute Auto0.00.0- 0.1 10 3/uLImmature Granulocytes Abs Auto0.010.00-0.03 10 3/uLPerforming Lab:see noteML - [facility] LBTroponin I High Sensitivity Reviewed date:05/09/2025 09:12:38 PM Interpretation: Performing Lab: Notes/Report: [facility] ,Troponin I High Sensitivity4.64.0-51.3 pg/mL CUT-OFF POINTS HAVE BEEN ESTABLISHED BASED ON THE FOURTH UNIVERSAL DEFINITION OF MYOCARDIAL INFARCTION. THE UPPER REFERENCE LIMIT (URL) OF TROPONIN, DEFINED THE 99TH PERCENTILE OF cTnI DISTRIBUTION IN A REFERENCE POPULATION, HAS BEEN CONFIRMED THE DECISION THRESHOLD FOR MD DIAGNOSIS. 99TH PERCENTILE = 51.4 PG/ML NOTE: HIGH-SENSITIVITY TROPONIN ASSAY IS NOT INTENDED TO BE USED IN ISOLATION BUT SHOULD BE INTERPRETED IN CONJUNCTION WITH OTHER DIAGNOSTIC AND CLINICAL INFORMATION. Performing Lab:see noteML - [facility] LBTroponin I High Sensitivity Reviewed date:05/09/2025 08:30:26 PM Interpretation: Performing Lab: Notes/Report: [facility] ,Troponin I High Sensitivity7.54.0-51.3 pg/mL CUT-OFF POINTS HAVE BEEN ESTABLISHED BASED ON THE FOURTH UNIVERSAL DEFINITION OF MYOCARDIAL INFARCTION. THE UPPER REFERENCE LIMIT (URL) OF TROPONIN, DEFINED THE 99TH PERCENTILE OF cTnI DISTRIBUTION IN A REFERENCE POPULATION, HAS BEEN CONFIRMED THE DECISION THRESHOLD FOR MD DIAGNOSIS. 99TH PERCENTILE = 51.4 PG/ML NOTE: HIGH-SENSITIVITY TROPONIN ASSAY IS NOT INTENDED TO BE USED IN ISOLATION BUT SHOULD BE INTERPRETED IN CONJUNCTION WITH OTHER DIAGNOSTIC AND CLINICAL INFORMATION. Performing Lab:see noteML - [facility] LBCBC AUTO DIFF Reviewed date:05/09/2025 05:41:53 PM Interpretation: Performing Lab: Notes/Report: [facility] ,White Blood Count4.84.0-11.0 10 3/uLRed Blood Count4.634.20-5.40 10 6/uL Aogbfnvqob31.312.0-16.0 g/mALumvxvtoxl23.636.0-48.0 %Mean Corpuscular Depfcj72.4 81.0-99.0 fLMean Corpuscular Vtzkqeaalu82.626.7-34.0 pgMean Corpuscular HGB Conc 31.929.9-35.2 g/dLRed Cell Distribution Width16.011.0-15.0 %Platelet Aaurz310 150-450 10 3/uLMean Platelet Ixrbml87.19.5-13.5 fLNeutrophils Percent Auto50.1 43.0-75.0 %Lymphocytes Percent Auto37.920.5-60.0 %Monocytes Percent Auto7.81.7- 12.0 %Eosinophils Percent Auto3.40.9-7.0 %Basophils Percent Auto0.80.2-2.0 % Immature Granulocytes Pct Auto0.00.0-0.5 %Neutrophils Absolute Auto2.41.4-6.5 10 3/uLLymphocytes Absolute Auto1.81.2-3.8 10 3/uLMonocytes Absolute Auto0.40.3-0.8 10 3/uLEosinophils Absolute Auto0.20.0-0.7 10 3/uLBasophils Absolute Auto0.00.0- 0.1 10 3/uLImmature Granulocytes Abs Auto0.000.00-0.03 10 3/uLPerforming Lab:see noteML - [facility] LBBNP Reviewed date:05/10/2025 08:41:09 AM Interpretation: Performing Lab: Notes/Report: Comment From ER blood if possible [facility] ,NT Pro B Type Natriuretic Ckcj187.0<=900.0 pg/mLPerforming Lab:see noteML - [facility] LBCampylobacter Culture Reviewed date:04/24/2025 04:35:14 PM Interpretation: Performing Lab: Notes/Report: [facility] ,Campylobacter CultureSee Below For Report Campylobacter Culture No Campylobacter species isolated. Performing Lab:see noteLC - [facility] LBUA RANDOM W or MICROSCOPIC Reviewed date:04/02/2025 02:24:30 PM Interpretation: Performing Lab: Notes/Report: [facility] ,Color UrineLT. YELLOWYELLOWClarity UrineCLEARCLEARSpecific [place] Urine<=1.005 1.005-1.025pH Urine6.05.0-9.0Protein UrineNEGATIVENEG/TRACE mg/dLGlucose Urine UA>=1000NEGATIVE mg/dLBilirubin UrineNEGATIVENEGATIVEKetones UrineNEGATIVE NEGATIVE mg/dLBlood UrineTRACE-INEGATIVENitrite UrineNEGATIVENEGATIVE Urobilinogen Urine0.20.2-1.0 EU/dLLeukocyte Esterase UrineNEGATIVENEGATIVEWBC Urine0-2NONE SEEN #/HPFRBC UrineNONE SEEN0-2 #/HPFBacteria UrineNONE SEENNONE SEEN #/HPFMucus UrineNONE SEENNONE SEENSquamous Epithelial Cell UrineRARE NONE/RARE #/LPFCrystals Seen?None SeenNone Seen #/HPFCast Seen?NONE SEENNONE SEEN #/LPFUrine Culture IndicatedNOPerforming Lab:see noteML - [facility] LBPROF 14(COMP METB) Reviewed date:03/30/2025 01:10:37 PM Interpretation: Performing Lab: Notes/Report: [facility] ,Qbhvne073201-054 mmol/LPotassium3.13.5-5.1 mmol/UXzrbcuiu52328-814 mmol/LCarbon Atgvruf21.721.0-32.0 mmol/LAnion Gap12.8Budczrd9455-228 mg/dLBlood Urea Nitrogen 18.07.0-18.0 mg/dLCreatinine1.320.55-1.02 mg/dLEstimated GFR ( Jxsihoy43 >=60 mL/min/1.73m 2Estimated GFR (Non- Ame41>=60 mL/min/1.73m 2BUN Creatinine Ratio13.7Dhdmxss1.28.5-10.1 mg/dLBilirubin Total0.40.2-1.0 mg/dL Aspartate Amino Ulvkonpnnpg3921-91 U/LAlanine Xwcwffifylmcqept6543-62 U/L Alkaline Sdelsokjcdx9612-948 U/LTotal Protein6.76.4-8.2 g/dLAlbumin Level3.23.4- 5.0 g/dLGlobulin3.5Albumin Globulin Ratio0.9Performing Lab:see noteML - [facility] Reviewed date:01/06/2025 02:27:02 PM Interpretation: Performing Lab: Notes/Report: Source Facility: [facility]-[address], [place] [id number] Cardiac Rehab Report Signed Patient: ABY MADRIGAL MR#: [id number] : 1965 Acct:[id number] Age/Sex: 59 / F ADM Date: 01/05/25 Loc: CR Attending Dr: GOMEZ JAY Ordering Physician: GOMEZ JAY Date of Service: 01/05/25 Procedure(s): ITP Accession Number(s): [id number] cc: [facility] Test Date: 2025-01-05 Pat Name: ABY MADRIGAL Department: Room: - 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 Order Number: [id number] Reading MD: AGUILAR MAC Interpretive Statements Session Date: Electronically Signed On 01-06-2025 8:46:05 EST by AGUILAR MAC Dictated By: Aguilar Mac D.O. Signed By: 01/06/25 0846 01/06/25 0846 DD/ 1003 TD/TT: Loan Review Officer:PROF DMITRY Peterson ([facility]) Reviewed date:04/09/2025 12:47:28 PM Interpretation: Performing Lab: Notes/Report: [facility] ,Xbmuws837868-273 mmol/LPotassium3.53.5-5.1 mmol/CQqpicazx34213-968 mmol/LCarbon Wvjljvn92.021.0-32.0 mmol/LAnion Gap9.0Zbtxyva57243-232 mg/dLBlood Urea Nitrogen 17.07.0-18.0 mg/dLCreatinine1.110.55-1.02 mg/dLEstimated GFR ( Candace>60 >=60 mL/min/1.73m 2Estimated GFR (Non- Ame50>=60 mL/min/1.73m 2BUN Creatinine Ratio15.5Vyxdjrb8.88.5-10.1 mg/dLPerforming Lab:see noteML - [facility] LBCA echo doppler complete Reviewed date:05/12/2025 01:44:18 PM Interpretation: Performing Lab: Notes/Report: Source Facility: [place] [address] [address] Cardiology Report Signed Patient: ABY MADRIGAL MR#: [id number] : 1965 Acct:[id number] Age/Sex: 59 / F ADM Date: 05/09/25 Loc: MS 217-[address]: Kendra Murillo M.D. Ordering Physician: Kendra Murillo M.D. Date of Service: 05/10/25 Procedure(s): CA echo doppler complete Accession Number(s): [id number] cc: Kendra Murillo M.D. Patient Name: ABY MADRIGAL MR#: [id number] : 1965 Exam Date: 05/10/2025 Ordering Doctor: [...] 08:16 Dictated By: GOMEZ JAY Signed By: 05/11/2518 DD/ 5 TD/TT: Loan Review Officer:JULIANN Reviewed date:02/18/2025 04:19:26 PM Interpretation: Performing Lab: Notes/Report: Source Facility: [place] [address] Cardiac Rehab Report Signed Patient: ABY MADRGIAL MR#: [id number] : 1965 Acct:[id number] Age/Sex: 59 / F ADM Date: 02/14/25 Loc: CR Attending Dr: GOMEZ JAY Ordering Physician: Aguilar Mac D.O. 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 Order Number: [id number] Reading MD: AGUILAR MAC Interpretive Statements Session Date: Electronically Signed On 02-17-2025 14:29:26 EDT by AGUILAR MAC Dictated By: Aguilar Mac D.O. 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: Reason For Referral Diagnosis 1 Facial cellulitis (L 03.211) Referral Organization [facility] Referring Provider First Name Amadou Referring Provider Last Name [facility] Avelina Guevara Referred Provider Specialty Otolaryngolo gy Referral Priority Routine Diagnosis 1 Thrombus (I82.90) Referral Organization [facility] Referring Provider First Name Amadou Referring Provider Last Name [facility] Referring Provider [facility] icine Referred Provider Specialty Ear, nose an d throat surgeon Referral Priority Routine 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 Referred Provider Omar Maers Referred Address [address], [place], [place],[address], Referred Provider Specialty Otolaryngolo gy General Notes Afsaneh Perla 10:51:41 AM >automated message sent Clinical Notes Afsaneh Perla 08:41:51 AM >will we see? CT report scanned in chart from 03/26/25, Lenny Valenzuela 04/02/2025 10:50:17 AM >yes, per ZACHARY Referral Priority Routine Diagnosis 1 Bakers cyst (M71.20) Referral Organization [facility] Referring Provider First Name Amadou Referring Provider Last Name [facility] Referring Provider Speciality Family [facility] icine Referred Provider Umm Mejía Referred Provider Specialty Orthopedic S urgery Referral Priority Routine Reason on back Diagnosis 1 Nevus (D22.9) Referral Organization [facility] Referring Provider First Name Amadou Referring Provider Last Name Lidia Referring Provider Speciality [facility] [place] Referred Provider Umm Martínez Referred Provider Specialty [...] 90 daysActiveCPAP Supplies --Mask and Tubing; Duration: days08/15/2024ctiveGlucometer -Use as directed once daily; Duration: 365 daysDiagnosis: ctiveClopidogrel Bisulfate 75 MG1 tablet Orally Once a day; Duration: 90 daysActiveCPAP -auto cpap 5-15; Duration: 365 days ActiveAutopap (A-PAP) - -Apply mask to face using face mask daily auto cpap 5- 15; Duration: 365 days04/21/2023ctiveCarvedilol 25 MG1 tablet with food Orally Twice a day; Duration: 90 daysActiveProtonix 40 MG1 tablet Orally bid; Duration: days09/20/2023ctiveAspirin 81 MG1 tablet Orally Once a dayActiveLORazepam 1 MG1 tablet Orally tid; Duration: 30 05/30/2025tiveMagnesium Oxide 400 MG1 tablet with food Orally Once a day; Duration: 90 days03/30/2025tiveJardiance 10 MG1 tablet Orally Once a day; Duration: 09/14/2025tiveIsosorbide Mononitrate ER 30 MG1 tablet Orally Once a day; Duration: 90 daysActiveLancets - Use as directed once daily; Duration: 90 daysDiagnosis: ctive Immunizations Vaccine Route Administration Date Status Comme nts Flu, Flucelvax (89861) 2 yrs +, single-dose syringe (3902-4585) Unknown 10/25/2020 Administered Flu, Flucelvax (92497) 2 yrs+, single-dose syringe (1342-3367)Cyggmfv3011/07/2021 LdhzjjpneihtHSRW-PGG-0 (COVID 19 Pfizer 30mcg/0.3mL)Ttdyieo2603/11/2021 McwsbngafsnyEIUZ-RIB-6 (COVID 19 Pfizer 30mcg/0.3mL)Oltdjkp4404/14/2021 Administered Social History Tobacco Use: Social History [...] since you last smoked?1-5 yearsAdditional Findings: Tobacco hqw-warbKq-wxrdhtcz cigarette smoker (10-19/day)AUDIT-C (Standard) Question Answer Notes Did you have a drink containing alcohol in the p ast year? No Ieuycb4JlhrwixvqjjdqkPhuyqiug Problems Problem Type SNOMED Code ICD Code Onset Dates Problem Status W/U Status Risk Notes Problem Type II diabetes usha litus without complication (659554297) Type 2 diabetes mellitus without complications (E11.9) ActiveconfirmedProblemHypomagnesemia (165598359)Hypomagnesemia (E83.42)Active confirmedProblemSolitary pulmonary nodule (230517458)Solitary pulmonary nodule (R91.1)ActiveconfirmedProblemHypertension (74341838)Hypertension (I10)Active confirmedProblemGastroesophageal reflux disease (399979968)GERD (gastroesophageal reflux disease) (K21.9)ActiveconfirmedProblemHypertension (32575945)HTN (hypertension) (I10)ActiveconfirmedProblemAnxiety (46794977) Anxiety (F41.9)ActiveconfirmedProblemCoronary artery disease (04256447)Coronary artery disease (I25.10)ActiveconfirmedProblemLeft ventricular hypertrophy (89465611)Left ventricular hypertrophy (I51.7)ActiveconfirmedProblemCarotid artery stenosis (28415993)Carotid artery stenosis (I65.29)ActiveconfirmedProblem Sleep apnea (73544549)Sleep apnea (G47.30)ActiveconfirmedProblemObstructive sleep apnea (87296670)Obstructive sleep apnea (G47.33)ActiveconfirmedProblem Insomnia (220045376)Insomnia (G47.00)ActiveconfirmedProblemTransient ischemic attack (938037798)TIA (transient ischemic attack) (G45.9)ActiveconfirmedProblem Migraine (06038753)Migraine (G43.909)ActiveconfirmedProblemGeneralized anxiety disorder (73351990)ALFONSO (generalized anxiety disorder) (F41.1)Activeconfirmed ProblemKidney stone (11575898)Kidney stones (N20.0)ActiveconfirmedProblem Pulmonary nodule (934008970)Pulmonary nodule (R91.1)ActiveconfirmedProblemMurmur (932834923)Murmur (R01.1)ActiveconfirmedProblemDiarrhea (96586590)Diarrhea (R19.7)ActiveconfirmedProblemEdema (542545631)Edema leg (R60.0)Activeconfirmed ProblemSolitary nodule of lung (218910909)Lung nodule (R91.1)Activeconfirmed ProblemAllergic conjunctivitis (443443477)Allergic conjunctivitis (H10.10)Active confirmedProblemAcquired hypothyroidism (297216609)Acquired hypothyroidism (E03.9)ActiveconfirmedProblemSeasonal allergic rhinitis (619908828)Seasonal allergic rhinitis (J30.2)ActiveconfirmedProblemPanic disorder (827058475)Panic disorder (F41.0)ActiveconfirmedProblemHemorrhoids (03834469)Hemorrhoids (K64.9) ActiveconfirmedProblemThrush (85917137)Thrush (B37.0)ActiveconfirmedProblem Inflamed seborrheic keratosis (142234825)Seborrheic keratoses, inflamed (L82.0) ActiveconfirmedProblemAcute non-ST segment elevation myocardial infarction (485776199)NSTEMI (non-ST elevated myocardial infarction) (I21.4)Activeconfirmed ProblemNevus (5783131411)Nevus (D22.9)ActiveconfirmedProblemHigh blood pressure (53590854)High blood pressure (I10)ActiveconfirmedProblemCellulitis and abscess of face (231377772)Facial cellulitis (L03.211)ActiveconfirmedProblemSkin sensation disturbance (97463420)Bilateral leg paresthesia (R20.2)Activeconfirmed ProblemEx-tobacco user (finding) (278447980)History of tobacco abuse (Z87.891) ActiveconfirmedProblemDerangement of knee (71315713)Internal derangement of knee, left (M23.92)ActiveconfirmedProblemRecurrent major depression (12426699) Depression, major, recurrent (F33.9)ActiveconfirmedProblemMass of left adrenal gland (62279024176773671)Left adrenal mass (E27.9)ActiveconfirmedProblem Paresthesia of upper limb (49748325)Paresthesia of upper limb (R20.2)Active confirmedProblemHypertensive urgency (565431526)Hypertensive urgency (I16.0) ActiveconfirmedProblemHypertensive emergency (829772617720058)Hypertensive emergency (I16.1)ActiveconfirmedProblemDerangement of knee (47604586)Knee internal derangement, unspecified laterality (M23.90)ActiveconfirmedProblemMRI Scan Abnormal (455349807)Abnormal MRI (R93.89)ActiveconfirmedProblemDisease caused by Severe acute respiratory syndrome coronavirus 2 (disorder) (948532319) COVID-19 virus infection (U07.1)Activeconfirmed Vital Signs Blood pressure diastolic 62 mm Hg 07/18/2025 Wavxdf83 in07/18/2025lood pressure mm Hg07/18/20256675Fxrkjt642.4 lbs 07/18/2025BMI35.14 kg/m207/18/2025 Encounters Encounter Location Date Provider Diagnosis [address] [address] 03/15/2025 Amadou H[facility] L03.211 [facility] [address] [facility] [place] [address] 04/03/2025 Christalie Mares Nasal congestion R09.81 ; Other specified disorders of nose and nasal sinuses J34.89 ; SURESH (obstructive sleep apnea) G47.33 and Cellulitis L03.90 [facility] [address] [place] [address] 03/30/2025 Amadou Hoy Hypomagnesemia E83.4 2 ; Thrush B37.0 and Diarrhea R19.7 [facility] [address] [place] [address] 04/09/2025 Amadou Hoy Hypertension I10 ; Diabetes mellitus E11.9 ; Diarrhea R19.7 and Knee pain M25.[address] [place] [address] 04/25/2025 Amadou Hoy Knee internal derangement, unspecified laterality M23.90 and Internal derangement of knee, left M23.92 [facility] [address] [place] [address] 05/11/2025 Amadou Hoy Hypertension I10 [address] [place] [address] 07/18/2025 Amadou Hoy Nevus D22.9 and Seasonal allergic rhinitis J30.2 [address] [place] [address] 11/20/2024 Amadou Hoy Hypertension I10 and Left ventricular hypertrophy I51.7 [facility] [address] [place] [address] 03/20/2025 Amadou Hoy Facial cellulitis L03.211 [facility] [address] [place] [address] 07/25/2025 Amadou Hoy [facility] [place] [address] 08/15/2025Doug HoyHypertension S56QnlqkynGood [facility]aritan [facility] Center[address] [place] [facility] [place] [address]/11/2024Doug HoyBreast cancer screening Z12.31 [facility] [place] [address] 09/06/2025[facility] [place] [address]/[facility] [place] [address]/06/2025Doug HoyHypomagnesemia E83.42[facility] [place] [address]/07/2025Doug Hoy Insomnia G47.00[facility] [place] [address]/Doug HoyAbnormal thyroid blood test R79.89[facility] [place] [address]/Doug Hoy [facility] [place] [address] 06/26/2025Doug HoyHypertension S74EviknuvGood [facility]aritan Medical Center[address] [place] [address]/[facility] [address] [place] [address]/Doug HoyHypertension I10 ; Diabetes mellitus E11.9 ; Hypokalemia E87.6 and Shortness of breath R06.02 [facility] [place] [address] 04/24/2025[facility] [place] [address]/[facility] [place] [address]/[facility] [place] [address]/Doug HoyBakers cyst M71.20 and Abnormal MRI R93.89[facility] [place] [address]/[facility]oyBAnim[facility] [place] [address]/03/2025Doug HoyHypomagnesemia E83.42 and Hypertensive urgency I16.0[facility] [place] [address]/06/2025Doug HoyInsomnia G47.00[facility] [place] [address]/07/2025Doug [facility]oyBAnim[facility] [place] [address]/07/2025 Amadou HoyThrombus I82.90[facility] [place] [address]/10/2025Doug HoyLow potassium syndrome E87.6B[facility] [place] [address]/ Amadou HoyFacial cellulitis L03.211 and Hypomagnesemia E83.42[facility] [place] [address]/03/2025Doug Hoy [facility] [place] [address] 12/25/2024Doug HoyInsomnia G47.00[facility] [place] [address]/09/2025Doug HoyInsomnia G47.00[facility] [place] [place] [address]/Doug Hoy [facility] [place] [address] 03/23/2025Doug HoyFacial cellulitis L03.211[address] [place] [address]/03/2025Doug HoyFacial cellulitis L03.211[address] [place] [address]/4Doug HoyBAnimas [facility] Hospital[address] [place] [place] [address]/ou HoyInsomnia G47.00 Assessments Encounter Date Diagnosis (ICD Code) Assessment Notes Treatment Notes Treatment Clinical Notes Section Notes 11/20/2024 Hypertension (ICD-10 - I10) 11/20/2024Left ventricular hypertrophy (ICD-10 - I51.7)03/15/2025Facial cellulitis (ICD-10 - L03.211)03/20/2025Facial cellulitis (ICD-10 - L03.211)if not better - need ct facial bones03/30/2025Hypomagnesemia (ICD-10 - E83.42) 03/30/2025Thrush (ICD-10 - B37.0)04/09/2025Hypertension (ICD-10 - I10)04/09/2025 Diabetes mellitus (ICD-10 - E11.9)04/03/2025Other specified disorders of nose and nasal sinuses (ICD-10 - J34.89)04/03/2025Nasal congestion (ICD-10 - R09.81) 04/25/2025Internal derangement of knee, left (ICD-10 - M23.92)04/25/2025Knee internal derangement, unspecified laterality (ICD-10 - M23.90)05/11/2025 Hypertension (ICD-10 - I10)07/18/2025Seasonal allergic rhinitis (ICD-10 - J30.2) 07/18/2025Nevus (ICD-10 - D22.9)11/16/2024Insomnia (ICD-10 - G47.00)12/25/2024 Insomnia (ICD-10 - G47.00)01/30/2025Insomnia (ICD-10 - G47.00)03/23/2025Facial cellulitis (ICD-10 - L03.211)03/26/2025Facial cellulitis (ICD-10 - L03.211) 03/26/2025Hypomagnesemia (ICD-10 - E83.42)03/26/2025Hypertensive urgency (ICD-10 - I16.0)03/29/2025Insomnia (ICD-10 - G47.00)03/30/2025Thrombus (ICD-10 - I82.90)04/02/2025Low potassium syndrome (ICD-10 - E87.6)04/09/2025Facial cellulitis (ICD-10 - L03.211)04/19/2025Hypertension (ICD-10 - I10)04/19/2025 Diabetes mellitus (ICD-10 - E11.9)05/14/2025akers cyst (ICD-10 - M71.20) 05/14/2025bnormal MRI (ICD-10 - R93.89)05/29/2025Hypomagnesemia (ICD-10 - E83.42)05/30/2025Insomnia (ICD-10 - G47.00)06/05/2025bnormal thyroid blood test (ICD-10 - R79.89)06/26/2025Hypertension (ICD-10 - I10)08/15/2025Hypertension (ICD-10 - I10)08/22/2025reast cancer screening (ICD-10 - Z12.31)04/19/2025 Hypokalemia (ICD-10 - E87.6)04/09/2025Hypomagnesemia (ICD-10 - E83.42)04/03/2025 SURESH (obstructive sleep apnea) (ICD-10 - G47.33)04/09/2025Diarrhea (ICD-10 - R19.7)03/30/2025Diarrhea (ICD-10 - R19.7)04/09/2025Knee pain (ICD-10 - M25.569) 04/03/2025ellulitis (ICD-10 - L03.90)04/19/2025Shortness of breath (ICD-10 - [...] PANEL (CHOL/TRIG/HDL/LDL) 09/20/20 23 CBC WITH DIFF (EXP 09/2025) 09/20/2023 MAMM Mammograms CAD 09/20/2023 Stool For Leukocytes 03/30/2025 Insulin Level 09/20/2023 COMPREHENSIVE METABOLIC PROFILE WITH GFR 04/19/2025 OCCULT BLOOD, FECAL, IMMUNOASSAY 025 Sleep Study: Retitration BIPAP/CPAP 07/23 C DIFF TOX PCR STOOL 03/30/2025 C DIFF TOX PCR STOOL 04/09/2025 CMP - Comprehensive Metabolic Panel 03/2025 CT Facial Bones w/o Contrast 03/23/2025 CBC W/AUTO DIFF 04/19/2025 PFT (38884, 81487, 19841) 06/27/2024 CBC AUTO DIFF 11/13/2025 Covid-19 PCR (CVDTBH) 08/13/2023 GLYCOHEMOGLOBIN A1C 04/19/2025 PROF 14(COMP METB) 11/13/2025 MRI KNEE LT WO CON 04/25/[address] SKULL BASE MID THIGH 04/28/2024 THYROID PANEL (T4/TSH/FREE T3) 3 THYROID PANEL (T4/TSH/FREE T3) 5 THYROID PANEL (T4/TSH/FREE T3) 5 MM screening mammo BI 08/22/2025 Troponin I High Sensitivity 11/13/2025 Lipid Panel 04/19/2025 Insurance Providers Payer Name Payer Address Payer Phone Subscriber Number Group Number Insured Name Patient Relationship to Insured Coverage Start Date Coverage End Date [employer] [place] [employer] [address] [address] [place] [address] [id number] [id number]by L[facility] Self - patient [...] heart disease HTNrefluxHeart attackSurgical History Surgery Date(Month/Year) Cath with stenting 06/07/2025 Coronary angiography 06/30/24 Tubal Ligation 1988 Hysterectomy 1998 cholecystectomy appendectomystent kidney stoneAngioplasty with stent placementHospitalization History Reason Date(Month/Year) Cath and stent placement Hypertension-TBHhest pain05/15
--- NOTE | 2025-11-13 03:43 | XR_ITS ---
The [address] [address] Patient Name: MILAN RASMUSSEN MRN: [id number] date: 1965 Sex: F Assigned Patient Location: ER Current Patient Location: Accession/Order Number: [id number] Exam Date: 11/13/2025 03:58 Report Date: 11/13/2025 09:01 At the request of: SYBIL CORDOVA MD Procedure: XR chest 1V PORTABLE AP ERECT CHEST 0336 hours CLINICAL HISTORY: Chest pain COMPARISON: 07/08/2025 The heart is within normal limits. There is no vascular congestion. The lungs, as visualized, are clear. There is no effusion or pneumothorax. The osseous structures are intact. XR/XR chest 1V IMPRESSION: NO ACUTE FINDINGS Impression dictated by: Chelsy Olson M.D. 11/13/2025 9:01 AM Dictation Location: [place] [address] Electronically authenticated by: [id number] Y Date: 11/13/2025 09:01
--- NOTE | 2025-11-13 04:41 | PC.NURSE ---
i gave this patient verbal and written discharge orders and this patient voices yes to understanding these. at time of discharge this patient voices no concerns, needs and shows no signs of distress
== END 2025-11-13 04:44 | disposition home or self-care (01) ==
PROVIDERS: Emergency Provider Emergency Medicine; PCP Family Medicine
DX: R07.89 Other chest pain (principal); I25.10 Atherosclerotic heart disease of native coronary artery without angina pectoris; I25.2 Old myocardial infarction; Z95.5 Presence of coronary angioplasty implant and graft; Z79.82 Long term (current) use of aspirin; Z79.02 Long term (current) use of antithrombotics/antiplatelets; Z87.891 Personal history of nicotine dependence; I10 Essential (primary) hypertension; E11.9 Type 2 diabetes mellitus without complications
CPT/HCPCS: 36415; 71045; 80053; 84484; 85025; 93005; 99283